=== PATIENT | male | born 1955 | race Caucasian/White ===

== ENCOUNTER → 2017-07-18 08:18 | Outpatient (CLI) | payer OTHER, SELFPAY ==
[2017-07-18 11:04] LABS: AST(SGOT) 27 U/L (15-37); Alanine Aminotransfer ALT/SGPT 32 U/L (16-61); Albumin, Serum 3.4 g/dL (3.2-5.0); Alkaline Phosphatase 59 U/L (45-117); Bilirubin, Direct 0.16 mg/dL (0.00-0.30); Cholesterol 88 mg/dL (200); Globulin 3.3 g/dL (2.2-4.2); High Density Lipoprotein 30 mg/dL; Protein, Total 6.7 g/dL (6.4-8.2); Triglycerides 138 mg/dL; Very Low Density Lipoprotein 28 mg/dL (5-40)
== END ==
PROVIDERS: Internal Medicine Cardiovascular Disease; Family Provider Family Medicine; PCP Family Medicine; Visit Provider Physician Assistant Medical
DX: E78.5 Hyperlipidemia, unspecified (principal)
CPT/HCPCS: 36415; 80061; 80076

== ENCOUNTER 2017-10-30 13:41 | Inpatient (IN) | payer OTHER, SELFPAY ==
[2017-10-30] VITALS (9 sets, daily range): BP systolic 140–165; BP diastolic 62–75; PULSE 61–78; RESP 16–18; TEMP 36.7–37.2; O2SAT 96–98; BMI 37.4
--- NOTE | 2017-10-30 14:45 | PCM.HP.STD ---
Problem List (1) Unstable angina Status: Acute (2) HTN (hypertension) Status: Chronic (3) HLD (hyperlipidemia) Status: Chronic (4) DEENA (obstructive sleep apnea) Status: Chronic (5) CAD (coronary atherosclerotic disease) Status: Chronic Comment: lad stent pia 08/29 (6) Testosterone deficiency Status: Chronic (7) Pulmonary embolism Status: Chronic History of Present Illness Date of Admission: 10/30/17 Chief Complaint: chest pain. The patient is a 62 year old M is with chest pain today. Patient was driving his car had chest pain and then started feeling diaphoretic. Patient was just very fatigued and called his and came to an outside hospital. At the hospital, the patient was started on a heparin drip and received saline. Patient's chest pain is resolved at this time. This weekend, patient was going on usually walk with his and had similar symptoms but he was also he was just very wiped out and was having some garbled speech. Patient when he had a heart attack in 2006 just felt very sick and tired for a week and was subsequently found to have had a heart attack during that time and did receive a stent. The symptoms that he had today are similar to then. [] Past Medical History Past Medical History (Chronic Problems): Chronic Problems (Last Updated 10/30/17 @ 14:14 by Ai Garcia MD) HTN (hypertension) (Chronic) Abnormal myocardial perfusion study (Chronic) H/O percutaneous transluminal coronary angioplasty (Chronic) HLD (hyperlipidemia) (Chronic) Abnormal stress test (Chronic) DEENA (obstructive sleep apnea) (Chronic) CAD (coronary atherosclerotic disease) (Chronic) lad stent pia 08/29 Testosterone deficiency (Chronic) Obesity (Chronic) Pulmonary embolism (Chronic) Allergies Sulfa (Sulfonamide Antibiotics) Allergy (Verified 06/09/17 19:41) Unknown ibuprofen [From Motrin] Adverse Reaction (Verified 06/09/17 19:41) Itching Home Medications: Ambulatory Orders Medication Instructions Recorded Esomeprazole Mag Trihydrate 40 mg PO DAILY 10/03/13 [Nexium] Potassium Chloride [Klor-Con 10] 40 meq PO DAILY 10/03/13 Multivitamins,Ther W-Minerals 1 tab PO DAILY 12/10/13 [Multivitamin With Minerals] Nitroglycerin [Nitrostat] 0.4 mg SUBLINGUAL Q5M PRN 12/10/13 Testosterone Cypionate 100 mg IM Q7D 12/10/13 [Depo-Testosterone] Aspirin E.C. [Ecotrin] 81 mg PO DAILY@0800 08/17/16 Meloxicam [Mobic] 7.5 mg PO DAILY 08/17/16 amlodipine 10 mg tablet 10 mg PO QDAY 06/09/17 Duloxetine Hcl [Cymbalta] 30 mg PO DAILY 10/30/17 Surgical History: angioplasty Psychiatric History: No pertinent psych hx Lives: Spouse/ Significant Other Smoking Status: Former smoker Tobacco Use: Chew Alcohol: Occasional Drugs: None - *Family History Maternal History Items: Heart Disease Paternal History Items: Heart Disease Review of Systems Constitutional: Denies: Chills, Fever, Weight Change Eyes: Denies: Blurred vision, Double vision HEENT: Denies: Head Aches, Sinus Congestion, Sinus Drainage Cardiovascular: Reports: Chest Pain, Edema - Since a recent trip down to [place].. Denies: Chest Tightness, Palpitations, Syncope Respiratory: Reports: Shortness of breath at rest. Denies: Cough, Sputum production Gastrointestinal: Denies: Abdominal Pain, Nausea, Vomiting Genitourinary: Denies: Dysuria Musculoskeletal: Reports: Shoulder Pain - Left, -. Denies: Arm Pain Skin: Denies: Rash, Wounds Neurological: Denies: Numbness, Tingling, Focal weakness Psychiatric: Reports: Anxiety, Depression - Had been on Cymbalta in the past but is no longer on it. Hematologic/ Lymphatic: Reports: Hx of blood clot. Denies: Easy Bruising, Easy Bleeding VTE Information - Inpt Only VTE Present on Admission: No VTE Mechan Device Prophylaxis: None VTE Pharm Prophylaxis ordered?: Yes Patient Problems: Active and Suspected Problems (Last Updated 10/30/17 @ 14:14 by Ai Garcia MD) Unstable angina (Acute) - Physical Exam General: Alert, Cooperative, No apparent distress HEENT: Atraumatic, Normocephalic, - - No scleral icterus Oral: Moist Mucosa, No Gingival or Mucosal Lesions/ Ulcerations Neck: No Nodes, Thyroid Normal Size and Texture Lungs: Clear to auscultation, Normal air movement Cardiovascular: Regular rate, Regular Rhythm, Normal S1, Normal S2, No murmurs Abdomen: Bowel Sounds Present, Soft, Non Tender, Non-Distended, No Hepato-splenomegaly Extremities: No edema, No Calf Tenderness Skin: No rashes, No breakdown Musculoskeletal: No Tenderness to Palpation of Joints or Extremities, No Muscle Wasting Neurological: Neuro grossly intact, Motor Exam 5/5 strength throughout, Sensory exam intact to light touch and pain Psych/Mental Status: Normal Affect, Appropriate Vital Signs Temp Pulse Resp BP Pulse Ox 36.8 C 70 16 140/75 H 97 10/30/17 13:49 10/30/17 14:25 10/30/17 13:49 10/30/17 13:49 10/30/17 13:49 Oxygen Delivery Method Room Air Weight: 143.2 kg Body Mass Index (BMI) 37.4 Labs at outside hospital: PTT 29.2, INR 1.1, sodium 138, potassium 3.5, creatinine 1.1, magnesium 2, troponin 0 0.01, white blood cell 6.2, hemoglobin 7.7, platelets 137. EKG showed normal sinus rhythm with first-degree AV block but no acute changes noted. Assessment/Plan Active and Suspected Problems (Last Updated 10/30/17 @ 14:14 by Ai Garcia MD) Unstable angina (Acute) 1. Unstable angina Currently symptom-free the patient is complaining some left shoulder pain. We will continue with anticoagulation but will transition the patient over to Lovenox from heparin. Patient is on aspirin at home but will start patient on metoprolol and lisinopril. Dr. Alfred has been notified by the outside ER. He will be on consultation. Tentative plan is for left heart catheterization on the . 2. Obstructive sleep apnea Continue with CPAP at night. Patient has brought his machine in and he can use that. 3. Coronary artery disease Patient has a stent from 2006 Symptoms today are similar to events that occurred then Continue with aspirin 4. Hypertension Continue with amlodipine. Patient does endorse that he has some swelling. Patient may wish to follow-up with his primary care physician to see if this could be related with the calcium channel jacob or not. 5. History of venous thromboembolic disease Vision is on testosterone. Patient should follow-up with his primary care physician to see if the testosterone should be discontinued. It will be held while he is here though. 6. DVT prophylaxis: Moderate risk. Patient is already anticoagulated. Code Visit Inpatient E&M: 29400 Init Hosp L3
--- NOTE | 2017-10-30 14:57 | HP.PCM_ITS ---
Problem List (1) Unstable angina Status: Acute (2) HTN (hypertension) Status: Chronic (3) HLD (hyperlipidemia) Status: Chronic (4) DEENA (obstructive sleep apnea) Status: Chronic (5) CAD (coronary atherosclerotic disease) Status: Chronic Comment: lad stent ipa 08/29 (6) Testosterone deficiency Status: Chronic (7) Pulmonary embolism Status: Chronic History of Present Illness Date of Admission: 10/30/17 Chief Complaint: chest pain. The patient is a 62 year old M is with chest pain today. Patient was driving his car had chest pain and then started feeling diaphoretic. Patient was just very fatigued and called his and came to an outside hospital. At the hospital, the patient was started on a heparin drip and received saline. Patient's chest pain is resolved at this time. This weekend, patient was going on usually walk with his and had similar symptoms but he was also he was just very wiped out and was having some garbled speech. Patient when he had a heart attack in 2006 just felt very sick and tired for a week and was subsequently found to have had a heart attack during that time and did receive a stent. The symptoms that he had today are similar to then. [] Past Medical History Past Medical History (Chronic Problems): Chronic Problems (Last Updated 10/30/17 @ 14:14 by Ai Garcia MD) HTN (hypertension) (Chronic) Abnormal myocardial perfusion study (Chronic) H/O percutaneous transluminal coronary angioplasty (Chronic) HLD (hyperlipidemia) (Chronic) Abnormal stress test (Chronic) DEENA (obstructive sleep apnea) (Chronic) CAD (coronary atherosclerotic disease) (Chronic) lad stent pia 08/29 Testosterone deficiency (Chronic) Obesity (Chronic) Pulmonary embolism (Chronic) Allergies Sulfa (Sulfonamide Antibiotics) Allergy (Verified 06/09/17 19:41) Unknown ibuprofen [From Motrin] Adverse Reaction (Verified 06/09/17 19:41) Itching Home Medications: Ambulatory Orders Medication Instructions Recorded Esomeprazole Mag Trihydrate 40 mg PO DAILY 10/03/13 [Nexium] Potassium Chloride [Klor-Con 10] 40 meq PO DAILY 10/03/13 Multivitamins,Ther W-Minerals 1 tab PO DAILY 12/10/13 [Multivitamin With Minerals] Nitroglycerin [Nitrostat] 0.4 mg SUBLINGUAL Q5M PRN 12/10/13 Testosterone Cypionate 100 mg IM Q7D 12/10/13 [Depo-Testosterone] Aspirin E.C. [Ecotrin] 81 mg PO DAILY@0800 08/17/16 Meloxicam [Mobic] 7.5 mg PO DAILY 08/17/16 amlodipine 10 mg tablet 10 mg PO QDAY 06/09/17 Duloxetine Hcl [Cymbalta] 30 mg PO DAILY 10/30/17 Surgical History: angioplasty Psychiatric History: No pertinent psych hx Lives: Spouse/ Significant Other Smoking Status: Former smoker Tobacco Use: Chew Alcohol: Occasional Drugs: None - *Family History Maternal History Items: Heart Disease Paternal History Items: Heart Disease Review of Systems Constitutional: Denies: Chills, Fever, Weight Change Eyes: Denies: Blurred vision, Double vision HEENT: Denies: Head Aches, Sinus Congestion, Sinus Drainage Cardiovascular: Reports: Chest Pain, Edema - Since a recent trip down to [place].. Denies: Chest Tightness, Palpitations, Syncope Respiratory: Reports: Shortness of breath at rest. Denies: Cough, Sputum production Gastrointestinal: Denies: Abdominal Pain, Nausea, Vomiting Genitourinary: Denies: Dysuria Musculoskeletal: Reports: Shoulder Pain - Left, -. Denies: Arm Pain Skin: Denies: Rash, Wounds Neurological: Denies: Numbness, Tingling, Focal weakness Psychiatric: Reports: Anxiety, Depression - Had been on Cymbalta in the past but is no longer on it. Hematologic/ Lymphatic: Reports: Hx of blood clot. Denies: Easy Bruising, Easy Bleeding VTE Information - Inpt Only VTE Present on Admission: No VTE Mechan Device Prophylaxis: None VTE Pharm Prophylaxis ordered?: Yes Patient Problems: Active and Suspected Problems (Last Updated 10/30/17 @ 14:14 by Ai Garcia MD) Unstable angina (Acute) - Physical Exam General: Alert, Cooperative, No apparent distress HEENT: Atraumatic, Normocephalic, - - No scleral icterus Oral: Moist Mucosa, No Gingival or Mucosal Lesions/ Ulcerations Neck: No Nodes, Thyroid Normal Size and Texture Lungs: Clear to auscultation, Normal air movement Cardiovascular: Regular rate, Regular Rhythm, Normal S1, Normal S2, No murmurs Abdomen: Bowel Sounds Present, Soft, Non Tender, Non-Distended, No Hepato- splenomegaly Extremities: No edema, No Calf Tenderness Skin: No rashes, No breakdown Musculoskeletal: No Tenderness to Palpation of Joints or Extremities, No Muscle Wasting Neurological: Neuro grossly intact, Motor Exam 5/5 strength throughout, Sensory exam intact to light touch and pain Psych/Mental Status: Normal Affect, Appropriate Vital Signs Temp Pulse Resp BP Pulse Ox 36.8 C 70 16 140/75 H 97 10/30/17 13:49 10/30/17 14:25 10/30/17 13:49 10/30/17 13:49 10/30/17 13:49 Oxygen Delivery Method Room Air Weight: 143.2 kg Body Mass Index (BMI) 37.4 Labs at outside hospital: PTT 29.2, INR 1.1, sodium 138, potassium 3.5, creatinine 1.1, magnesium 2, troponin 0 0.01, white blood cell 6.2, hemoglobin 7.7, platelets 137. EKG showed normal sinus rhythm with first-degree AV block but no acute changes noted. Assessment/Plan Active and Suspected Problems (Last Updated 10/30/17 @ 14:14 by Ai Garcia MD) Unstable angina (Acute) 1. Unstable angina * Currently symptom-free the patient is complaining some left shoulder pain. We will continue with anticoagulation but will transition the patient over to Lovenox from heparin. * Patient is on aspirin at home but will start patient on metoprolol and lisinopril. * Dr. Alfred has been notified by the outside ER. He will be on consultation. Tentative plan is for left heart catheterization on the . 2. Obstructive sleep apnea * Continue with CPAP at night. Patient has brought his machine in and he can use that. 3. Coronary artery disease * Patient has a stent from 2006 * Symptoms today are similar to events that occurred then * Continue with aspirin 4. Hypertension * Continue with amlodipine. * Patient does endorse that he has some swelling. Patient may wish to follow- up with his primary care physician to see if this could be related with the calcium channel jacob or not. 5. History of venous thromboembolic disease * Vision is on testosterone. Patient should follow-up with his primary care physician to see if the testosterone should be discontinued. It will be held while he is here though. 6. DVT prophylaxis: Moderate risk. Patient is already anticoagulated. Code Visit Inpatient E&M: 62972 Init Hosp L3
--- NOTE | 2017-10-30 15:13 | CASEMGMT ---
According to the [employer] website, the following are in-network tertiary facilities: [facility], [place], [facility], [facility], [facility], and . Sixto ZIMMERMAN CM
[2017-10-30 15:55] LABS: Partial Thromboplast Time 118.3 Seconds (24.1-36.2)
--- NOTE | 2017-10-30 16:14 | EKG12_ITS ---
Test Reason : ADMISSION Blood Pressure : / mmHG Vent. Rate : 057 BPM Atrial Rate : 057 BPM P-R Int : 278 ms QRS Dur : 088 ms QT Int : 392 ms P-R-T Axes : 051 -38 024 degrees QTc Int : 381 ms Sinus bradycardia with 1st degree A-V block Left axis deviation Abnormal ECG Confirmed by GABRIELA CONTI, KIRAN ([id number]), food editor ORLANDO MARKS ([id number] on 11/02/2017 1:13:17 PM Referred By: Nahum Blake Confirmed By:KIRAN OCHOA MD
--- NOTE | 2017-10-30 17:47 | PCM.CONS.C ---
Problem List (1) Unstable angina Status: Acute (2) CAD (coronary atherosclerotic disease) Status: Chronic Qualifiers: Coronary Disease-Associated Artery/Lesion type: [place] artery [place] vs. transplanted heart: [place] heart Associated angina: with unstable angina Qualified Code(s): I25.110 - Atherosclerotic heart disease of [place] coronary artery with unstable angina pectoris Comment: lad stent pia 08/29 (3) H/O percutaneous transluminal coronary angioplasty Status: Chronic (4) HLD (hyperlipidemia) Status: Chronic (5) HTN (hypertension) Status: Chronic (6) Confusion Status: Acute Reason for Consult Date of Consultation: 10/30/17 History of Present Illness: The patient is a 62 year old white male with a past medical history of underlying CAD, LAD PCI, hyperlipidemia, hypertension who presents for concerns of unstable angina pectoris. He states that he has been having episodes on and off recently where he feels a chest discomfort and a smothering sensation across his chest. He has not necessarily had associated nausea, emesis, near syncope or syncope. He states he has also been getting discomfort in his left scapular area. He notes that with these episodes and sometimes separate from these episodes he can become somewhat diaphoretic. He has also had episodes where he feels somewhat dizzy or lightheaded and confused. He notes that there have been times where he cannot remember things with respect to what he is supposed to be doing. He is concerned as there is a family history of Alzheimer's dementia. He notes today he had an episode of his chest discomfort and smothering sensation. He felt he was having an IN. He went home and requested his summoned the EMS and have him taken to the local emergency department. He was evaluated at his local emergency department. His troponin I level was negative. His ECG demonstrated sinus rhythm with a first-degree AV block with left axis deviation and a possible left anterior fascicular block. He was treated medically including IV heparin. A request was made for the patient to be transferred to [facility] for further evaluation and care. He states overall he does feel better. He still feels intermittently warm. He has been somewhat anxious about his symptoms and his events. His is with him at this time. She states she notices symptoms similar to what he had prior to his previous PCI. This includes his chest discomfort and smothering sensation as well as her being more tired and fatigued than usual. He has had no episodes of orthopnea or PND. He states he recently traveled to and from [place] on work related activities. He noted while in [place] he had ankle and pedal edema. He notes that has all but resolved since returning to [place]. Since being transferred to [facility] he has had a repeat troponin I level which is negative. He had a repeat ECG which demonstrated no other acute findings. [] Past Medical History Allergies/Adverse Reactions: Allergies Sulfa (Sulfonamide Antibiotics) Allergy (Verified 06/09/17 19:41) Unknown ibuprofen [From Motrin] Adverse Reaction (Verified 06/09/17 19:41) Itching Home Medications: Ambulatory Orders Medication Instructions Recorded Esomeprazole Mag Trihydrate 40 mg PO DAILY 10/03/13 [Nexium] Potassium Chloride [Klor-Con 10] 40 meq PO DAILY 10/03/13 Multivitamins,Ther W-Minerals 1 tab PO DAILY 12/10/13 [Multivitamin With Minerals] Nitroglycerin [Nitrostat] 0.4 mg SUBLINGUAL Q5M PRN 12/10/13 Testosterone Cypionate 100 mg IM Q7D 12/10/13 [Depo-Testosterone] Aspirin E.C. [Ecotrin] 81 mg PO DAILY@0800 08/17/16 Meloxicam [Mobic] 7.5 mg PO DAILY 08/17/16 amlodipine 10 mg tablet 10 mg PO QDAY 06/09/17 Duloxetine Hcl [Cymbalta] 30 mg PO DAILY 10/30/17 Past Medical History (Chronic Problems): Chronic Problems (Last Updated 10/30/17 @ 14:14 by Ai Garcia MD) HTN (hypertension) (Chronic) Abnormal myocardial perfusion study (Chronic) H/O percutaneous transluminal coronary angioplasty (Chronic) HLD (hyperlipidemia) (Chronic) Abnormal stress test (Chronic) DEENA (obstructive sleep apnea) (Chronic) CAD (coronary atherosclerotic disease) (Chronic) lad stent pia 08/29 Testosterone deficiency (Chronic) Obesity (Chronic) Pulmonary embolism (Chronic) Surgical History: angioplasty Psychiatric History: No pertinent psych hx - *Family History Maternal Family History: Family History (Last Updated 06/09/17 @ 19:48 by Dia Nicholson) Mother CAD (coronary artery disease) Hypertension Hx of CABG Father Hypertension Myocardial infarction Grandfather Myocardial infarction Grandmother Cancer Grandfather CAD (coronary artery disease) History Items: Heart Disease Paternal Family History: Family History (Last Updated 06/09/17 @ 19:48 by Dia Nicholson) Mother CAD (coronary artery disease) Hypertension Hx of CABG Father Hypertension Myocardial infarction Grandfather Myocardial infarction Grandmother Cancer Grandfather CAD (coronary artery disease) History Items: Heart Disease Lives: Spouse/ Significant Other Smoking Status: Former smoker Tobacco Use: Chew Alcohol: Occasional Drugs: None Review of Systems - Review of Systems General: Reports: Fatigue. Denies: Fever, Night Sweats Cardiovascular: Reports: Chest Discomfort, Chest Discomfort at Rest, Shortness of Breath, Shortness of Breath at Rest, Peripheral Edema, Lightheadedness. Denies: Orthopnea, PND, Palpitations, Dizziness, Near Syncope, Syncope Respiratory: Denies: Cough, Sputum Production, Hemoptysis Gastrointestinal: Denies: Hematemesis, Hematochezia, Melena Genitourinary: Denies: Dysuria, Hematuria Skin: Denies: Rash Subjectve: This is a 62-year-old white male who appears to be resting comfortably at the moment in no acute distress. Objective: Vital Signs Temp Pulse Resp BP Pulse Ox 98.3 F 77 16 140/75 H 97 10/30/17 13:49 10/30/17 16:06 10/30/17 13:49 10/30/17 13:49 10/30/17 15:00 Oxygen Delivery Method Room Air Weight: 315 lb 11.231 oz Body Mass Index (BMI) 37.4 General: Awake, Alert, Oriented x 3, Cooperative, No Acute Distress HEENT: Atraumatic, Normocephalic, PERRL, EOMI, Sclera Non Icteric Oral: Moist Mucosa Neck: Supple, Good ROM, No JVD Lungs: Clear to auscultation Cardiovascular: Regular Rhythm, Premature Ectopic Beats, Normal S1 Vascular: No Carotid Bruits Abdomen: Bowel Sounds Present, Soft, Non Tender Extremities: No Cyanosis, No Clubbing, No edema Neurological: No Focal Motor or Sensory Deficit Psych/Mental Status: Appropriate, Normal Affect 10/30/17 14:55: Troponin I < 0.015 10/30/17 15:28: APTT 118.3 H* Rhythm: Sinus rhythm EKG: As noted above ECHO: [facility] 2015: Left ventricle: Normal with an LVEF 65%; moderate concentric LVH; trivial MR; trivial TR; mild pulmonic valve insufficiency Stress Test: 07/16/2015: Xavier protocol: 8 minutes and 30 seconds achieving 87% predicted maximal heart rate with a peak blood pressure of 182/82 mmHg and a peak metabolic equivalent of 9 metabolic equivalents; peak exercise ECG with no obvious ECG changes; rare PVC during recovery; functional capacity good; no complaint of chest discomfort during exercise or recovery; examination discontinued secondary to dyspnea and leg discomfort; nuclear images compatible with soft tissue attenuation/artifact with no myocardial perfusion changes consider diagnostic for stress-induced myocardial ischemia or previous myocardial injury/infarction; gated LVEF of 62% Cardiac Cath: 12/11/2013: Left ventricle normal with an LVEF of 65%; left main coronary artery normal; LAD stent patent with minimal luminal irregularities; LCx normal; RCA being large and dominant with mid 25% stenosis PCI: 09/12/2012: [place], [place]: PTCA/drug-eluting stent to the proximal LAD Assessment/Plan 1. Unstable angina pectoris The patient presents with symptoms of relatively nonexertional and increasing in frequency chest discomfort, dyspnea, diaphoresis, and progressive fatigue. According to the patient's history this appears similar to the patient's presentation prior to a previous diagnosis of CAD and PCI. The patient has undergone noncardiac evaluation with cardiac enzymes and ECGs. They have been unremarkable for any acute changes at this time. The patient will continue to be monitored. He will continue medical management as deemed appropriate. Based upon the patient's history it was felt reasonable that patient be considered for repeat definitive evaluation at this time with diagnostic cardiac catheterization. The procedure and risks were discussed with the patient and he was agreeable to this. 2. CAD status post LAD PCI Patient does have a previous diagnosis of CAD as noted above. He has continued medical management as best as tolerated. His medications will be adjusted as needed. 3. Hyperlipidemia The patient does have a history of hyperlipidemia. He has been on lipid-lowering therapy in the past. He has had concerns of associated symptoms. His lipids will be reassessed. He may need to reattempt lipid-lowering therapy, etc., to minimize his cardiovascular risks. 4. Hypertension The patient will continue medical management with adjustment as deemed appropriate. 5. Confusion The patient has had episodes of confusion. It is unclear as to the etiology. This may be totally separate from his cardiovascular disease process, etc. He may need further noncardiac/neurology evaluation of his episodes of confusion. Comment: The above was discussed with the patient with his spouse present. This note was generated with [employer] dictation software. It may contain incorrect words, spelling, and punctuation that were not noted in checking the note before signing.
--- NOTE | 2017-10-30 18:00 | CON.PCM_ITS ---
Problem List (1) Unstable angina Status: Acute (2) CAD (coronary atherosclerotic disease) Status: Chronic Qualifiers: Coronary Disease-Associated Artery/Lesion type: [place] artery [place] vs. transplanted heart: [place] heart Associated angina: with unstable angina Qualified Code(s): I25.110 - Atherosclerotic heart disease of [place] coronary artery with unstable angina pectoris Comment: lad stent pia 08/29 (3) H/O percutaneous transluminal coronary angioplasty Status: Chronic (4) HLD (hyperlipidemia) Status: Chronic (5) HTN (hypertension) Status: Chronic (6) Confusion Status: Acute Reason for Consult Date of Consultation: 10/30/17 History of Present Illness: The patient is a 62 year old white male with a past medical history of underlying CAD, LAD PCI, hyperlipidemia, hypertension who presents for concerns of unstable angina pectoris. He states that he has been having episodes on and off recently where he feels a chest discomfort and a smothering sensation across his chest. He has not necessarily had associated nausea, emesis, near syncope or syncope. He states he has also been getting discomfort in his left scapular area. He notes that with these episodes and sometimes separate from these episodes he can become somewhat diaphoretic. He has also had episodes where he feels somewhat dizzy or lightheaded and confused. He notes that there have been times where he cannot remember things with respect to what he is supposed to be doing. He is concerned as there is a family history of Alzheimer's dementia. He notes today he had an episode of his chest discomfort and smothering sensation. He felt he was having an PR. He went home and requested his summoned the EMS and have him taken to the local emergency department. He was evaluated at his local emergency department. His troponin I level was negative. His ECG demonstrated sinus rhythm with a first-degree AV block with left axis deviation and a possible left anterior fascicular block. He was treated medically including IV heparin. A request was made for the patient to be transferred to [facility] for further evaluation and care. He states overall he does feel better. He still feels intermittently warm. He has been somewhat anxious about his symptoms and his events. His is with him at this time. She states she notices symptoms similar to what he had prior to his previous PCI. This includes his chest discomfort and smothering sensation as well as her being more tired and fatigued than usual. He has had no episodes of orthopnea or PND. He states he recently traveled to and from [place] on work related activities. He noted while in [place] he had ankle and pedal edema. He notes that has all but resolved since returning to [place]. Since being transferred to [facility] he has had a repeat troponin I level which is negative. He had a repeat ECG which demonstrated no other acute findings. [] Past Medical History Allergies/Adverse Reactions: Allergies Sulfa (Sulfonamide Antibiotics) Allergy (Verified 06/09/17 19:41) Unknown ibuprofen [From Motrin] Adverse Reaction (Verified 06/09/17 19:41) Itching Home Medications: Ambulatory Orders Medication Instructions Recorded Esomeprazole Mag Trihydrate 40 mg PO DAILY 10/03/13 [Nexium] Potassium Chloride [Klor-Con 10] 40 meq PO DAILY 10/03/13 Multivitamins,Ther W-Minerals 1 tab PO DAILY 12/10/13 [Multivitamin With Minerals] Nitroglycerin [Nitrostat] 0.4 mg SUBLINGUAL Q5M PRN 12/10/13 Testosterone Cypionate 100 mg IM Q7D 12/10/13 [Depo-Testosterone] Aspirin E.C. [Ecotrin] 81 mg PO DAILY@0800 08/17/16 Meloxicam [Mobic] 7.5 mg PO DAILY 08/17/16 amlodipine 10 mg tablet 10 mg PO QDAY 06/09/17 Duloxetine Hcl [Cymbalta] 30 mg PO DAILY 10/30/17 Past Medical History (Chronic Problems): Chronic Problems (Last Updated 10/30/17 @ 14:14 by Ai Garcia MD) HTN (hypertension) (Chronic) Abnormal myocardial perfusion study (Chronic) H/O percutaneous transluminal coronary angioplasty (Chronic) HLD (hyperlipidemia) (Chronic) Abnormal stress test (Chronic) DEENA (obstructive sleep apnea) (Chronic) CAD (coronary atherosclerotic disease) (Chronic) lad stent pia 08/29 Testosterone deficiency (Chronic) Obesity (Chronic) Pulmonary embolism (Chronic) Surgical History: angioplasty Psychiatric History: No pertinent psych hx - *Family History Maternal Family History: Family History (Last Updated 06/09/17 @ 19:48 by Dia Nicholson) Mother CAD (coronary artery disease) Hypertension Hx of CABG Father Hypertension Myocardial infarction Grandfather Myocardial infarction Grandmother Cancer Grandfather CAD (coronary artery disease) History Items: Heart Disease Paternal Family History: Family History (Last Updated 06/09/17 @ 19:48 by Dia Nicholson) Mother CAD (coronary artery disease) Hypertension Hx of CABG Father Hypertension Myocardial infarction Grandfather Myocardial infarction Grandmother Cancer Grandfather CAD (coronary artery disease) History Items: Heart Disease Lives: Spouse/ Significant Other Smoking Status: Former smoker Tobacco Use: Chew Alcohol: Occasional Drugs: None Review of Systems - Review of Systems General: Reports: Fatigue. Denies: Fever, Night Sweats Cardiovascular: Reports: Chest Discomfort, Chest Discomfort at Rest, Shortness of Breath, Shortness of Breath at Rest, Peripheral Edema, Lightheadedness. Denies: Orthopnea, PND, Palpitations, Dizziness, Near Syncope, Syncope Respiratory: Denies: Cough, Sputum Production, Hemoptysis Gastrointestinal: Denies: Hematemesis, Hematochezia, Melena Genitourinary: Denies: Dysuria, Hematuria Skin: Denies: Rash Subjectve: This is a 62-year-old white male who appears to be resting comfortably at the moment in no acute distress. Objective: Vital Signs Temp Pulse Resp BP Pulse Ox 98.3 F 77 16 140/75 H 97 10/30/17 13:49 10/30/17 16:06 10/30/17 13:49 10/30/17 13:49 10/30/17 15:00 Oxygen Delivery Method Room Air Weight: 315 lb 11.231 oz Body Mass Index (BMI) 37.4 General: Awake, Alert, Oriented x 3, Cooperative, No Acute Distress HEENT: Atraumatic, Normocephalic, PERRL, EOMI, Sclera Non Icteric Oral: Moist Mucosa Neck: Supple, Good ROM, No JVD Lungs: Clear to auscultation Cardiovascular: Regular Rhythm, Premature Ectopic Beats, Normal S1 Vascular: No Carotid Bruits Abdomen: Bowel Sounds Present, Soft, Non Tender Extremities: No Cyanosis, No Clubbing, No edema Neurological: No Focal Motor or Sensory Deficit Psych/Mental Status: Appropriate, Normal Affect 10/30/17 14:55: Troponin I < 0.015 10/30/17 15:28: APTT 118.3 H* Rhythm: Sinus rhythm EKG: As noted above ECHO: [facility] 2015: Left ventricle: Normal with an LVEF 65%; moderate concentric LVH; trivial MR; trivial TR; mild pulmonic valve insufficiency Stress Test: 07/16/2015: Xavier protocol: 8 minutes and 30 seconds achieving 87% predicted maximal heart rate with a peak blood pressure of 182/82 mmHg and a peak metabolic equivalent of 9 metabolic equivalents; peak exercise ECG with no obvious ECG changes; rare PVC during recovery; functional capacity good; no complaint of chest discomfort during exercise or recovery; examination discontinued secondary to dyspnea and leg discomfort; nuclear images compatible with soft tissue attenuation/artifact with no myocardial perfusion changes consider diagnostic for stress-induced myocardial ischemia or previous myocardial injury/infarction; gated LVEF of 62% Cardiac Cath: 12/11/2013: Left ventricle normal with an LVEF of 65%; left main coronary artery normal; LAD stent patent with minimal luminal irregularities; LCx normal; RCA being large and dominant with mid 25% stenosis PCI: 09/12/2012: [place], [place]: PTCA/drug-eluting stent to the proximal LAD Assessment/Plan 1. Unstable angina pectoris The patient presents with symptoms of relatively nonexertional and increasing in frequency chest discomfort, dyspnea, diaphoresis, and progressive fatigue. According to the patient's history this appears similar to the patient's presentation prior to a previous diagnosis of CAD and PCI. The patient has undergone noncardiac evaluation with cardiac enzymes and ECGs. They have been unremarkable for any acute changes at this time. The patient will continue to be monitored. He will continue medical management as deemed appropriate. Based upon the patient's history it was felt reasonable that patient be considered for repeat definitive evaluation at this time with diagnostic cardiac catheterization. The procedure and risks were discussed with the patient and he was agreeable to this. 2. CAD status post LAD PCI Patient does have a previous diagnosis of CAD as noted above. He has continued medical management as best as tolerated. His medications will be adjusted as needed. 3. Hyperlipidemia The patient does have a history of hyperlipidemia. He has been on lipid- lowering therapy in the past. He has had concerns of associated symptoms. His lipids will be reassessed. He may need to reattempt lipid-lowering therapy, etc., to minimize his cardiovascular risks. 4. Hypertension The patient will continue medical management with adjustment as deemed appropriate. 5. Confusion The patient has had episodes of confusion. It is unclear as to the etiology. This may be totally separate from his cardiovascular disease process, etc. He may need further noncardiac/neurology evaluation of his episodes of confusion. Comment: The above was discussed with the patient with his spouse present. This note was generated with [employer] dictation software. It may contain incorrect words, spelling, and punctuation that were not noted in checking the note before signing.
[2017-10-30] MEDS: Enoxaparin 150 MG/ML Syringe 140 MG SC (21:41)
[2017-10-30] MEDS: Metoprolol Tartrate 25 MG Tablet PO (21:41)
[2017-10-30] MEDS: TICAGRELOR 90 MG TABLET PO (21:41)
[2017-10-31] VITALS (16 sets, daily range): BP systolic 123–159; BP diastolic 61–81; PULSE 60–77; RESP 16–20; TEMP 36.7–37.1; O2SAT 94–97
[2017-10-31 03:55] LABS: Bacteria 0 SEEN /hpf (None Seen); Mucous, Urine 0 SEEN /hpf (<or=2+); Red Blood Cells-Urine 0 SEEN /hpf (0-5); White Blood Cells 0 SEEN /hpf (0-5)
[2017-10-31 04:00] LABS: Color, Urine Yellow (Yellow); Glucose, Dipstick Normal (Normal); Ketone-Dipstick Negative (Negative); Leukocyte Esterase-Dipstick Negative /ul (Negative); Nitrite-Dipstick Negative (Negative); Occult Blood-Urine Negative /ul (Negative); Protein-Dipstick Negative (Negative); Urine Bilirubin Dipstick Negative (Negative); Urine Clarity Clear (Clear); Urine Urobilinogen Normal (Normal)
[2017-10-31 04:07] LABS: Squamous Epithelial Cells - UA 0-5 SEEN /hpf (0-5)
[2017-10-31 05:55] LABS: International Normalized Ratio 1.1
--- NOTE | 2017-10-31 05:55 | EKG12_ITS ---
Test Reason : AM EKG Blood Pressure : / mmHG Vent. Rate : 061 BPM Atrial Rate : 061 BPM P-R Int : 264 ms QRS Dur : 090 ms QT Int : 398 ms P-R-T Axes : 070 -39 015 degrees QTc Int : 400 ms Sinus rhythm with 1st degree A-V block Left axis deviation Abnormal ECG Confirmed by GABRIELA CONTI, KIRAN ([id number]), graphics editor ORLANDO MARKS ([id number] on 11/02/2017 1:12:47 PM Referred By: Nahum Blake Confirmed By:KIRAN OCHOA MD
[2017-10-31 05:56] LABS: Partial Thromboplast Time 38.7 Seconds (24.1-36.2)
[2017-10-31 06:03] LABS: Hematocrit 47.2 % (40-54); Hemoglobin 16.4 g/dl (13.0-16.5); Mean Corp Hgb Conc 34.7 g/gl (32-36); Mean Corpuscular Hgb 28.3 pg (27.0-32.0); Mean Corpuscular Volume 81.5 fL (80-94); Mean Platelet Vol. 11.6 fl (6.2-12.0); Platelet Count 148 K/mm3 (150-450); RBC Distribution Width CV 13.6 % (11.6-14.6); RBC Distribution Width SD 40.3 fl (35.1-43.9); Red Blood Count 5.79 M/mm3 (4.6-6.2); White Blood Count 5.6 K/mm3 (4.4-11.0)
[2017-10-31 06:04] LABS: Scan Indicated on CBC? Y/N NO
[2017-10-31] MEDS: TICAGRELOR 90 MG TABLET PO (06:21)
[2017-10-31] MEDS: Aspirin E.C. 81 MG Tablet PO (06:21)
[2017-10-31] MEDS: Lisinopril 5 MG Tablet PO (06:22)
[2017-10-31] MEDS: amLODIPine 10 MG Tablet PO (06:22)
[2017-10-31] MEDS: Metoprolol Tartrate 25 MG Tablet PO (06:22)
[2017-10-31 06:27] LABS: Anion Gap 8 (5-15); BUN 16 mg/dL (7-18); BUN/Creat Ratio 13.7 RATIO (10-20); Calcium,Total 8.2 mg/dL (8.5-10.1); Chloride 107 mmol/L (98-107); Cholesterol 116 mg/dL (200); Creatinine, Serum 1.17 mg/dL (0.70-1.30); EST Glomerular Filtration Rate 68 mL/min (>60); Est Glom Filt Rate - Afr Amer 82 mL/min (>60); Estimated Creatinine Clearance 84.62 ml/min; Glucose 94 mg/dL (74-106); High Density Lipoprotein 25 mg/dL; Potassium 3.6 mmol/L (3.5-5.1); Sodium Level 141 mmol/L (136-145); Thyroid Stim Hormone (TSH) 2.89 uIU/mL (0.358-3.74); Triglycerides 185 mg/dL; Very Low Density Lipoprotein 37 mg/dL (5-40)
--- NOTE | 2017-10-31 07:58 | NURSING ---
Called report to Bo in laboratory coordinator at this time.
--- NOTE | 2017-10-31 09:27 | CL.D_ITS ---
Patient Name: JERO GARZON Study Date: 10/31/2017 Performing: Willis Alfred MD Ht: 77 inches 196 cm : 1955 Wt: 315.7 lbs 143 kg Age: 62 Gender: male BSA: 2.72 PROCEDURE(S) PERFORMED [id number]/COR/LV CLINICAL PROFILE AND INDICATIONS Indications: Stable Known CAD, Worsening Angina Heart Failure: None Stress/Imaging Stress/Image Study Performed: No Angina Classification Anginal Classification w/in 2 Weeks: CCS III CAD Presentations: Unstable angina. CONCLUSIONS Normal Left Ventricular End Diastolic Pressure Normal LV size, wall motion,and systolic function LVEF: by LV gram 60 % [place] Multivessel CAD (LAD: Proximal Stent: Patent) RECOMMENDATIONS Risk factor modification Medical therapy DESCRIPTION OF PROCEDURE The patient arrived to the procedure lab. The risks and benefits of the procedure as well as a full d escription of our services here and current unavailability of surgical backup were fully explained to the patient and/or their significant other prior to the catheterization. The Timeout was completed, verifying the correct patient and procedure. The patient's procedural site was prepped and draped in the usual fashion. Local anesthetic was given subcutaneously to right radial region with Lidocaine 2% . Using a modified Seldinger technique, arterial access was obtained via the right radial artery, a 6 Fr sheath was inserted. Right Coronary Artery selective angiography was then performed in multiple v iews using a 5 Fr. 4.0 [place] catheter. Left Coronary Artery selective angiography was performed in mu ltiple views using a 5 Fr. 4.0 [place] catheter. Left Ventriculography was performed in ACEVEDO projection using a 5 Fr. [place] catheter. LV to AO pullback pressures were then recorded.The arterial sheath wa s pulled and a TR Band was applied for hemostasis CORONARY ANGIOGRAPHY DOMINANCE: Right Dominant LEFT HEART ASSESSMENT Left Ventricular Ejection Fraction: by LV Gram 60 % Normal LV wall motion Normal Left Ventricular End Diastolic Pressure LVEDP: 9 mmHg LEFT MAIN: Angiographically normal LEFT ANTERIOR DECENDING ARTERY: PROX LAD: Previously placed stent is patent DIAGONAL 1: Ostial - 10-25 % Stenosis CIRCUMFLEX ARTERY: Angiographically normal RIGHT CORONARY ARTERY: Diffuse: Eccentric: 10-25% % Stenosis VALVE FINDINGS: Normal Aortic Valve function Normal Mitral Valve function AORTIC ROOT: Angiographically normal COMPLICATIONS No Complications PROCEDURE MEDICATIONS Fentanyl 50 mcg IV Versed 1 mg IV Fentanyl 50 mcg IV Versed 1 mg IV Oxygen: 2 L/min via nasal cannula SUMMARY OF HEMODYNAMIC DATA Time AIR REST ECG 08:13:08 AO 104/67 (84) SA 08:47:51 LV 109/-2, 6 09:09:31 LV 115/-1, 9 09:09:39 LV 115/0, 11 09:11:12 LVp 117/1, 12 09:11:17 AOp 113/65 (87) 09:11:22 Signed By Willis Alfred MD On 10/31/2017 09:26:37 Willis Alfred MD
[2017-10-31] MEDS: 0.9% Normal Saline 1,000 ML 75 ML IV (09:45)
[2017-10-31] MEDS: 0.9% Normal Saline 1,000 ML 15 ML IV (09:45)
[2017-10-31] MEDS: DULoxetine Hcl 30 MG Capsule PO (09:46)
[2017-10-31] MEDS: Multivitamins,Ther W-Minerals Tablet 1 TABLET PO (09:46)
[2017-10-31] MEDS: Pantoprazole Sodium 40 MG Tablet PO (09:46)
--- NOTE | 2017-10-31 11:29 | PCM.DC ---
- Discharge Diagnoses Current Active Problems: Current Active and Chronic Problems (Last Updated 10/30/17 @ 14:14 by Ai Garcia MD) Unstable angina (Acute) Confusion (Acute) You will use the following diet at home:: Cardiac Your food should be the consistency of: Regular Discharge Activity: Return to Normal Activity Weight Bearing Status: Weight bearing as tolerated Call your doctor if you observe: Fever of 101 or Higher, Shortness of breath, Dizziness, Fainting spells, Chest pain, Increased palpitations (irregular heartbeat), Uncontrolled pain Allergies/Adverse Reactions: Allergies Sulfa (Sulfonamide Antibiotics) Allergy (Verified 06/09/17 19:41) Unknown ibuprofen [From Motrin] Adverse Reaction (Verified 06/09/17 19:41) Itching Medications to take at Discharge Esomeprazole Mag Trihydrate [Nexium] 40 mg PO DAILY 10/03/13 Potassium Chloride [Klor-Con 10] 40 meq PO DAILY 10/03/13 Multivitamins,Ther W-Minerals [Multivitamin With Minerals] 1 tab PO DAILY 12/10/13 Nitroglycerin [Nitrostat] 0.4 mg SUBLINGUAL Q5M PRN 12/10/13 Testosterone Cypionate [Depo-Testosterone] 100 mg IM Q7D 12/10/13 Aspirin E.C. [Ecotrin] 81 mg PO DAILY@0800 08/17/16 Meloxicam [Mobic] 7.5 mg PO DAILY 08/17/16 amlodipine 10 mg tablet 10 mg PO QDAY 06/09/17 Duloxetine Hcl [Cymbalta] 30 mg PO DAILY 10/30/17 Gabapentin [Neurontin] 300 mg PO QHS 10/30/17 Lisinopril [Zestril] 5 mg PO DAILY #30 tab 10/31/17 Metoprolol Tartrate [Lopressor (beta jacob)] 25 mg PO BID #90 tab 10/31/17 The following prescriptions were given: Lisinopril [Zestril] 5 mg PO DAILY #30 tab Metoprolol Tartrate [Lopressor (beta jacob)] 25 mg PO BID #90 tab Primary Care Physician: Jagjit Myers MD [Primary Care Provider] - Please follow up with your Primary Care Physician in: 1 week.
--- NOTE | 2017-10-31 12:02 | CASEMGMT ---
Face to Face with patient for initial transition planning/care coordination assessment. ERASMO CAT introduced self and role at [facility], pt voices understanding and consents to assessment at this time. Pt is lying in bed in no distress at this time. Pt is A/O x4 at this time and answers all questions appropriately at this time. Care providers, pharmacy, and demographics verified. See attached link. Pt voices no further concerns/needs at this time. Advised pt to ask for CM if any further questions/concerns/needs arise, voices understanding. PLAN: Home [place] ERASMO CAT
--- NOTE | 2017-10-31 13:31 | PCM.DC.SUM ---
Discharge Date and Diagnosis - Problem List Patient Problems: Active and Suspected Problems (Last Updated 10/30/17 @ 14:14 by Ai Garcia MD) Unstable angina (Acute) Confusion (Acute) Date of Admission: 10/30/17 Date of Discharge: 10/31/17 - Primary Discharge Diagnosis Active and Suspected Problems (Last Updated 10/30/17 @ 14:14 by Ai Garcia MD) Unstable angina (Acute) - Secondary Discharge Diagnosis Chronic Problems (Last Updated 10/30/17 @ 14:14 by Ai Garcia MD) HTN (hypertension) (Chronic) Abnormal myocardial perfusion study (Chronic) H/O percutaneous transluminal coronary angioplasty (Chronic) HLD (hyperlipidemia) (Chronic) Abnormal stress test (Chronic) DEENA (obstructive sleep apnea) (Chronic) CAD (coronary atherosclerotic disease) (Chronic) lad stent pia 08/29 Testosterone deficiency (Chronic) Obesity (Chronic) Pulmonary embolism (Chronic) Hospital Course and Treatment Operations: None Procedures: Cardiac catheterization, EKG Summary of Care Provided: Patient seen and examined on the day of discharge and appeared to be stable to be discharged home. He has no more chest pain. His vital signs are stable. Today, he is alert and related ?3. - Physical Exam General: Alert, Oriented x3, Cooperative, No apparent distress. HEENT: Atraumatic, PERRLA, EOMI. Neck: Supple, No JVD, Negative Carotid Bruits, Trachea Midline, Thyroid Normal. Lungs: Clear to auscultation, Normal air movement, No rhonchi, No wheeze, No rales. Cardiovascular: Regular rate, Regular Rhythm, Normal S1, Normal S2, PMI Normal. Abdomen: Bowel Sounds Present, Soft, Non Tender, Non-Distended, No Hepato-splenomegaly. Extremities: No clubbing, No cyanosis, No edema Skin: No rashes, No breakdown Neurological: Neuro grossly intact Vital Signs are stable. Hospital course: This is a 8 years old male patient admitted directly from outside facility for unstable angina for evaluation. He has a history of CAD status post stents back in 2006. His EKG revealed no evidence of acute ischemic changes. His troponin was negative ?2. His routine blood work was unremarkable. His vital signs are stable. Cardiology consulted and he underwent cardiac catheterization that revealed normal LV size and function, ejection fraction 60%, patent LAD stent and without evidence of significant CAD that requires intervention and decision was made to continue medical treatment. Patient was started on lisinopril and metoprolol in addition to his previous medications including statins and aspirin. Patient reports that he had cough with lisinopril and this was switched to losartan. Acute coronary syndrome ruled out. Patient discharged home in a stable medical condition, started on metoprolol and losartan, continued on aspirin, recommended follow-up with PCP in 1 week and follow-up with cardiology according to Dr. Alfred. Discharge Activity: Return to Normal Activity Weight Bearing Status: Weight bearing as tolerated Call your doctor if you observe: Fever of 101 or Higher, Shortness of breath, Dizziness, Fainting spells, Chest pain, Increased palpitations (irregular heartbeat), Uncontrolled pain Home Medications: Medications to take at Discharge Esomeprazole Mag Trihydrate [Nexium] 40 mg PO DAILY 10/03/13 Potassium Chloride [Klor-Con 10] 40 meq PO DAILY 10/03/13 Multivitamins,Ther W-Minerals [Multivitamin With Minerals] 1 tab PO DAILY 12/10/13 Nitroglycerin [Nitrostat] 0.4 mg SUBLINGUAL Q5M PRN 12/10/13 Testosterone Cypionate [Depo-Testosterone] 100 mg IM Q7D 12/10/13 Aspirin E.C. [Ecotrin] 81 mg PO DAILY@0800 08/17/16 Meloxicam [Mobic] 7.5 mg PO DAILY 08/17/16 amlodipine 10 mg tablet 10 mg PO QDAY 06/09/17 Duloxetine Hcl [Cymbalta] 30 mg PO DAILY 10/30/17 Gabapentin [Neurontin] 300 mg PO QHS 10/30/17 Losartan Potassium [Cozaar] 25 mg PO DAILY #30 tab 10/31/17 Metoprolol Tartrate [Lopressor (beta jacob)] 25 mg PO BID #90 tab 10/31/17 Following Prescrptions Were Given to Patient: Losartan Potassium [Cozaar] 25 mg PO DAILY #30 tab Metoprolol Tartrate [Lopressor (beta jacob)] 25 mg PO BID #90 tab Primary Care Physician: Jagjit Myers MD [Primary Care Provider] - Please follow up with your Primary Care Physician in: 1 week. Disposition: Home Minutes spent on discharge:: 25 Patient Condition:: Stable Medical Necessity - Tobacco Use Smoking Status: Former smoker Tobacco Use: Chew Meaningful Use Info Meaningful Use Diagnoses (Choose all that apply): None applicable Code Visit Inpatient E&M: 85149 Disch Hosp
--- NOTE | 2017-10-31 13:38 | DS.PCM_ITS ---
Discharge Date and Diagnosis - Problem List Patient Problems: Active and Suspected Problems (Last Updated 10/30/17 @ 14:14 by Ai Garcia MD) Unstable angina (Acute) Confusion (Acute) Date of Admission: 10/30/17 Date of Discharge: 10/31/17 - Primary Discharge Diagnosis Active and Suspected Problems (Last Updated 10/30/17 @ 14:14 by Ai Garcia MD) Unstable angina (Acute) - Secondary Discharge Diagnosis Chronic Problems (Last Updated 10/30/17 @ 14:14 by Ai Garcia MD) HTN (hypertension) (Chronic) Abnormal myocardial perfusion study (Chronic) H/O percutaneous transluminal coronary angioplasty (Chronic) HLD (hyperlipidemia) (Chronic) Abnormal stress test (Chronic) DEENA (obstructive sleep apnea) (Chronic) CAD (coronary atherosclerotic disease) (Chronic) lad stent pia 08/29 Testosterone deficiency (Chronic) Obesity (Chronic) Pulmonary embolism (Chronic) Hospital Course and Treatment Operations: None Procedures: Cardiac catheterization, EKG Summary of Care Provided: Patient seen and examined on the day of discharge and appeared to be stable to be discharged home. He has no more chest pain. His vital signs are stable. Today, he is alert and related ?3. - Physical Exam General: Alert, Oriented x3, Cooperative, No apparent distress. HEENT: Atraumatic, PERRLA, EOMI. Neck: Supple, No JVD, Negative Carotid Bruits, Trachea Midline, Thyroid Normal. Lungs: Clear to auscultation, Normal air movement, No rhonchi, No wheeze, No rales. Cardiovascular: Regular rate, Regular Rhythm, Normal S1, Normal S2, PMI Normal. Abdomen: Bowel Sounds Present, Soft, Non Tender, Non-Distended, No Hepato- splenomegaly. Extremities: No clubbing, No cyanosis, No edema Skin: No rashes, No breakdown Neurological: Neuro grossly intact Vital Signs are stable. Hospital course: This is a 8 years old male patient admitted directly from outside facility for unstable angina for evaluation. He has a history of CAD status post stents back in 2006. His EKG revealed no evidence of acute ischemic changes. His troponin was negative ?2. His routine blood work was unremarkable. His vital signs are stable. Cardiology consulted and he underwent cardiac catheterization that revealed normal LV size and function, ejection fraction 60% , patent LAD stent and without evidence of significant CAD that requires intervention and decision was made to continue medical treatment. Patient was started on lisinopril and metoprolol in addition to his previous medications including statins and aspirin. Patient reports that he had cough with lisinopril and this was switched to losartan. Acute coronary syndrome ruled out. Patient discharged home in a stable medical condition, started on metoprolol and losartan, continued on aspirin, recommended follow-up with PCP in 1 week and follow-up with cardiology according to Dr. Alfred. Discharge Activity: Return to Normal Activity Weight Bearing Status: Weight bearing as tolerated Call your doctor if you observe: Fever of 101 or Higher, Shortness of breath, Dizziness, Fainting spells, Chest pain, Increased palpitations (irregular heartbeat), Uncontrolled pain Home Medications: Medications to take at Discharge Esomeprazole Mag Trihydrate [Nexium] 40 mg PO DAILY 10/03/13 Potassium Chloride [Klor-Con 10] 40 meq PO DAILY 10/03/13 Multivitamins,Ther W-Minerals [Multivitamin With Minerals] 1 tab PO DAILY Nitroglycerin [Nitrostat] 0.4 mg SUBLINGUAL Q5M PRN 12/10/13 Testosterone Cypionate [Depo-Testosterone] 100 mg IM Q7D 12/10/13 Aspirin E.C. [Ecotrin] 81 mg PO DAILY@0800 08/17/16 Meloxicam [Mobic] 7.5 mg PO DAILY 08/17/16 amlodipine 10 mg tablet 10 mg PO QDAY 06/09/17 Duloxetine Hcl [Cymbalta] 30 mg PO DAILY 10/30/17 Gabapentin [Neurontin] 300 mg PO QHS 10/30/17 Losartan Potassium [Cozaar] 25 mg PO DAILY #30 tab 10/31/17 Metoprolol Tartrate [Lopressor (beta jacob)] 25 mg PO BID #90 tab 10/31/17 Following Prescrptions Were Given to Patient: Losartan Potassium [Cozaar] 25 mg PO DAILY #30 tab Metoprolol Tartrate [Lopressor (beta jacob)] 25 mg PO BID #90 tab Primary Care Physician: Jagjit Myers MD [Primary Care Provider] - Please follow up with your Primary Care Physician in: 1 week. Disposition: Home Minutes spent on discharge:: 25 Patient Condition:: Stable Medical Necessity - Tobacco Use Smoking Status: Former smoker Tobacco Use: Chew Meaningful Use Info Meaningful Use Diagnoses (Choose all that apply): None applicable Code Visit Inpatient E&M: 70023 Disch Hosp
--- NOTE | 2017-10-31 15:09 | PCM.PN.CARD ---
Subjectve: Patient was evaluated earlier this day. He remained without acute symptoms of chest discomfort or difficulty breathing. He subsequently underwent diagnostic cardiac catheterization. He remains without obvious post procedure related adverse events. Objective: Vital Signs Temp Pulse Resp BP Pulse Ox 98.1 F 68 16 139/73 H 96 10/31/17 09:35 10/31/17 14:12 10/31/17 14:12 10/31/17 14:12 10/31/17 14:12 Oxygen Delivery Method Room Air Weight: 315 lb 11.231 oz Body Mass Index (BMI) 37.4 Intake and Output for Last 24 Hours 10/29/17 10/30/17 10/31/17 23:59 23:59 23:59 Intake Total 450 / 450 467 / 467 Balance 450 / 450 467 / 467 10/30/17 14:55: Troponin I < 0.015 10/30/17 15:28: APTT 118.3 H* 10/30/17 17:51: Troponin I < 0.015 10/31/17 03:45: Urine Color Yellow, Urine Clarity Clear, Urine pH 6.0, Ur Specific [place] 1.020, Urine Protein Negative, Urine Glucose (UA) Normal, Urine Ketones Negative, Urine Occult Blood Negative, Urine Nitrite Negative, Urine Bilirubin Negative, Urine Urobilinogen Normal, Ur Leukocyte Esterase Negative, Urine RBC 0 SEEN, Urine WBC 0 SEEN 10/31/17 05:20: WBC 5.6, RBC 5.79, Hgb 16.4, Hct 47.2, MCV 81.5, MCH 28.3, MCHC 34.7, RDW 13.6, RDW Differential 40.3, Plt Count 148 L, MPV 11.6 10/31/17 05:20: Sodium 141, Potassium 3.6, Chloride 107, Carbon Dioxide 26.0, Anion Gap 8, BUN 16, Creatinine 1.17, Est GFR (MDRD) Af Amer 82, Est GFR (MDRD) Non-Af 68, BUN/Creatinine Ratio 13.7, Glucose 94, Calcium 8.2 L, Triglycerides 185, Cholesterol 116, LDL Cholesterol 54, VLDL Cholesterol 37, HDL Cholesterol 25 L 10/31/17 05:20: PT 14.0, INR 1.1, APTT 38.7 H Rhythm: Sinus rhythm Cardiac Cath: Per the cardiac catheterization report: LAD stent patent: No other angiographically significant appearing CAD: Overall LV systolic function remains preserved: Please see official report Medical Necessity - Tobacco Use Smoking Status: Former smoker Tobacco Use: Chew Assessment/Plan 1. Unstable angina pectoris The patient presents with symptoms of relatively nonexertional and increasing in frequency chest discomfort, dyspnea, diaphoresis, and progressive fatigue hurting for unstable angina pectoris. According to the patient's history this appears similar to the patient's presentation prior to a previous diagnosis of CAD and PCI. The patient has undergone noncardiac evaluation with cardiac enzymes and ECGs. They have been unremarkable for any acute changes at this time. The patient has subsequently undergone evaluation with diagnostic cardiac catheterization. The findings are as noted above. Based upon the aforementioned findings there is now concerned that the patient's symptoms are not related to his underlying CAD status or changes in LV systolic function. Thus other etiologies, other than cardiac etiologies, need to be considered. 2. CAD status post LAD PCI The patient does have a previous diagnosis of CAD as noted above. He has continued medical management as best as tolerated. His medications will be adjusted as needed. 3. Hyperlipidemia The patient does have a history of hyperlipidemia. He has been on lipid-lowering therapy in the past. He has had concerns of associated symptoms. His lipids will be reassessed. He may need to reattempt lipid-lowering therapy, etc., to minimize his cardiovascular risks. 4. Hypertension The patient will continue medical management with adjustment as deemed appropriate. 5. Confusion The patient has had episodes of confusion. It is unclear as to the etiology. Is also unclear as to whether or not his confusion and potentially associated anxiety related events, are related to his symptoms. He may need further noncardiac evaluation of these concerns. Comment: The above was discussed with the patient and with his spouse present and Dr. Garcia. This note was generated with [employer] software. It may contain incorrect words, spelling, and punctuation that were not noted in checking the note before signing.
--- NOTE | 2017-10-31 15:13 | PN.CARD_ITS ---
Subjectve: Patient was evaluated earlier this day. He remained without acute symptoms of chest discomfort or difficulty breathing. He subsequently underwent diagnostic cardiac catheterization. He remains without obvious post procedure related adverse events. Objective: Vital Signs Temp Pulse Resp BP Pulse Ox 98.1 F 68 16 139/73 H 96 10/31/17 09:35 10/31/17 14:12 10/31/17 14:12 10/31/17 14:12 10/31/17 14:12 Oxygen Delivery Method Room Air Weight: 315 lb 11.231 oz Body Mass Index (BMI) 37.4 Intake and Output for Last 24 Hours 10/29/17 10/30/17 10/31/17 23:59 23:59 23:59 Intake Total 450 / 450 467 / 467 Balance 450 / 450 467 / 467 10/30/17 14:55: Troponin I < 0.015 10/30/17 15:28: APTT 118.3 H* 10/30/17 17:51: Troponin I < 0.015 10/31/17 03:45: Urine Color Yellow, Urine Clarity Clear, Urine pH 6.0, Ur Specific [place] 1.020, Urine Protein Negative, Urine Glucose (UA) Normal, Urine Ketones Negative, Urine Occult Blood Negative, Urine Nitrite Negative, Urine Bilirubin Negative, Urine Urobilinogen Normal, Ur Leukocyte Esterase Negative, Urine RBC 0 SEEN, Urine WBC 0 SEEN 10/31/17 05:20: WBC 5.6, RBC 5.79, Hgb 16.4, Hct 47.2, MCV 81.5, MCH 28.3, MCHC 34.7, RDW 13.6, RDW Differential 40.3, Plt Count 148 L, MPV 11.6 10/31/17 05:20: Sodium 141, Potassium 3.6, Chloride 107, Carbon Dioxide 26.0, Anion Gap 8, BUN 16, Creatinine 1.17, Est GFR (MDRD) Af Amer 82, Est GFR (MDRD) Non-Af 68, BUN/Creatinine Ratio 13.7, Glucose 94, Calcium 8.2 L, Triglycerides 185, Cholesterol 116, LDL Cholesterol 54, VLDL Cholesterol 37, HDL Cholesterol 25 L 10/31/17 05:20: PT 14.0, INR 1.1, APTT 38.7 H Rhythm: Sinus rhythm Cardiac Cath: Per the cardiac catheterization report: LAD stent patent: No other angiographically significant appearing CAD: Overall LV systolic function remains preserved: Please see official report Medical Necessity - Tobacco Use Smoking Status: Former smoker Tobacco Use: Chew Assessment/Plan 1. Unstable angina pectoris The patient presents with symptoms of relatively nonexertional and increasing in frequency chest discomfort, dyspnea, diaphoresis, and progressive fatigue hurting for unstable angina pectoris. According to the patient's history this appears similar to the patient's presentation prior to a previous diagnosis of CAD and PCI. The patient has undergone noncardiac evaluation with cardiac enzymes and ECGs. They have been unremarkable for any acute changes at this time. The patient has subsequently undergone evaluation with diagnostic cardiac catheterization. The findings are as noted above. Based upon the aforementioned findings there is now concerned that the patient' s symptoms are not related to his underlying CAD status or changes in LV systolic function. Thus other etiologies, other than cardiac etiologies, need to be considered. 2. CAD status post LAD PCI The patient does have a previous diagnosis of CAD as noted above. He has continued medical management as best as tolerated. His medications will be adjusted as needed. 3. Hyperlipidemia The patient does have a history of hyperlipidemia. He has been on lipid- lowering therapy in the past. He has had concerns of associated symptoms. His lipids will be reassessed. He may need to reattempt lipid-lowering therapy, etc., to minimize his cardiovascular risks. 4. Hypertension The patient will continue medical management with adjustment as deemed appropriate. 5. Confusion The patient has had episodes of confusion. It is unclear as to the etiology. Is also unclear as to whether or not his confusion and potentially associated anxiety related events, are related to his symptoms. He may need further noncardiac evaluation of these concerns. Comment: The above was discussed with the patient and with his spouse present and Dr. Garcia. This note was generated with [employer] software. It may contain incorrect words, spelling, and punctuation that were not noted in checking the note before signing.
== END 2017-10-31 14:59 | disposition home or self-care (01) | DRG 287 ==
PROVIDERS: Internal Medicine Cardiovascular Disease; Family Provider Family Medicine; PCP Family Medicine; Visit Provider Hospitalist
DX: I25.110 Atherosclerotic heart disease of native coronary artery with unstable angina pectoris (principal); I10 Essential (primary) hypertension; I44.0 Atrioventricular block, first degree; E78.5 Hyperlipidemia, unspecified; G47.33 Obstructive sleep apnea (adult) (pediatric); E66.9 Obesity, unspecified; R41.0 Disorientation, unspecified; Z87.891 Personal history of nicotine dependence; Z79.82 Long term (current) use of aspirin; Z86.711 Personal history of pulmonary embolism; Z68.37 Body mass index [BMI] 37.0-37.9, adult
CPT/HCPCS: 36415; 80048; 80061; 81001; 84443; 84484; 85027; 85610; 85730; 93005; 93458; 99152; 99153; 99251; 99406; J7030; Q9967; A4216; C1769; C1894; G0463

== ENCOUNTER → 2018-07-06 07:00 | Outpatient (CLI) | payer OTHER, SELFPAY ==
[2018-06-25 11:18] VITALS: BMI 39.7
--- NOTE | 2018-07-06 11:33 | PFT ---
INTRODUCTION: The patient is a 62-year-old male that presents for pulmonary function studies secondary to a diagnosis of dyspnea on exertion. Respiratory therapy reports good patient effort. Bronchodilators were used during testing. INTERPRETATION: Forced expiration spirometry demonstrates no evidence of a large airways obstructive ventilatory defect. There was no significant response to aerosolized bronchodilators, based upon strict ATS criteria. Spirograms are of good quality and plateau gradually indicating slow emptying of the lungs. Body plethysmography was performed and reveals lung volumes to be within normal limits. Diffusing capacity by single breath CO is within normal limits at 98% of predicted. IMPRESSION: Grossly normal pulmonary function studies. Of note, TLC is at the lower limits of normal, and could be indicative of a very early restrictive process.
--- OUTSIDE RECORDS SUMMARY | 2018-09-09 14:08 | XMS RPT_ITS ---
:1955 Author Organization OHIP Support Name Relationship Address Phone ANN GARZON Unavailable [address] + [place] [address] JUSTIN GARZON Unavailable Unavailable + [place] [phone] [employer] Unavailable [address] [facility] + [place] [address] ANN GARZON Unavailable [address] + [place] [address] JACKI GARZONIE Unavailable Unavailable + [place] [phone] [employer] Unavailable [address] [facility] + [place] [address] ANN GARZON Unavailable [address] + [place] [address] [employer] Unavailable [address] [facility] [address] + [address] [employer] Unavailable [address] [facility] + [place] [address] ANN GARZON Unavailable [address] + [place] [address] MIKHAIL AGRZON Unavailable . + ., [place] . [employer] Unavailable [address] [facility] + [place] [address] ANN GARZON Unavailable [address] + [place] [address] MIKHAIL GARZON Unavailable Unavailable + [employer] Unavailable [address] [facility] + [place] [address] ANN GARZON Unavailable [address] + [place] [address] MIKHAIL GAROZN Unavailable Unavailable + [employer] Unavailable [address] [facility] + [place] [address] ANN GARZON Unavailable [address] + [place] [address] MIKHAIL GARZON Unavailable Unavailable + [employer] Unavailable [address] [facility] + [place] [address] ANN GARZON Unavailable [address] + [place] [address] MIKHAIL GARZON Unavailable Unavailable + [employer] Unavailable [address] [facility] + [place] [address] DURANANN Unavailable [address] + [place] [address] MIKHAIL GARZON Unavailable Unavailable + [employer] Unavailable [address] [facility] + [place] [address] DURANANN MCFARLANE Unavailable [address] + [place] [address] MIKHAIL GARZON Unavailable Unavailable + [employer] Unavailable [address] [facility] + [place] [address] DURANANN MCFARLANE Unavailable [address] + [place] [address] MIKHAIL GARZON Unavailable Unavailable + [employer] Unavailable [address] [facility] + [place] [address] DURANANN MCFARLANE Unavailable [address] + [place] [address] MIKHAIL GARZON Unavailable Unavailable + [employer] Unavailable [address] [facility] + [place] [address] DURANBEARAN Unavailable Unavailable + ANN GARZON Unavailable Unavailable Unavailable ANN GARZON Unavailable NA + [place], [place] MIKHAIL GARZON Unavailable NA + [place], [place] GRISELDA FRITZ Unavailable [address] [place] [address] + [place] [address] Care Team Providers Name Role Phone Sincere HUNG (PA-C) Attending Unavailable JAGJIT CHEEMA Attending Unavailable JAGJIT CHEEMA Attending Unavailable SUSAN KERR (CUSTOMER SERVICE CORRESPONDENCE CLERK) Referring Unavailable Sincere HUNG (PA-C) Attending Unavailable JAGJIT CHEEMA Referring Unavailable Sincere HUNG (PA-C) Referring Unavailable Sincere HUNG (PA-C) Referring Unavailable Sincere HUNG (PA-C) Attending Unavailable JAGJIT CHEEMA Referring Unavailable Sincere HUNG (PA-C) Referring Unavailable LENIN GARCIA (PA) Attending Unavailable JAGJIT CHEEMA Referring Unavailable JAGJIT CHEEMA Attending Unavailable JAGJIT CHEEMA Referring Unavailable DR JAGJIT SOUZA Admitting Unavailable ALYSA, DR JAGJIT Zaragoza Attending Unavailable ALYSA, DR JAGJIT Zaragoza Primary Care Unavailable Hussein Gramajo Attending Unavailable [place], Jagjit Referring Unavailable Shaji Wyatt D.O. Attending Unavailable BellmeadJagjit Referring Unavailable Shaji Wyatt D.O. Attending Unavailable Shaji Wyatt D.O. Referring Unavailable [facility] Jagjit Primary Care Unavailable Shaji Wyatt D.O. Attending Unavailable Shaji Wyatt D.O. Referring Unavailable Dyana Alvarez Attending Unavailable Dyana Alvarez Referring Unavailable [facility] Primary Care Unavailable Ashelfah, Ghasem Attending Unavailable [facility] Primary Care Unavailable Jopperi, Nahum Admitting Unavailable Jopperi, Nahum Referring Unavailable Mood[place]aw, Willis Consulting Unavailable Jopperi, Nahum Admitting Unavailable Jopperi, Nahum Attending Unavailable Jopperi, Nahum Referring Unavailable [facility] Primary Care Unavailable [place], Willis Consulting Unavailable Jopperi, Nahum Consulting Unavailable Jopperi, Nahum Admitting Unavailable [place], Willis Attending Unavailable Jopperi, Nahum Referring Unavailable [facility] Primary Care Unavailable [place], Willis Consulting Unavailable Jopperi, Nahum Consulting Unavailable Jopperi, Nahum Admitting Unavailable Ashelfah, Ghasem Attending Unavailable Joronaldoeri, Nahum Referring Unavailable [facility] Primary Care Unavailable [place], Willis Consulting Unavailable Ashelfah, Ghasem Consulting Unavailable Jopperi, Nahum Admitting Unavailable [place], Willis Attending Unavailable Jopperi, Nahum Referring Unavailable [facility] Primary Care Unavailable [place], Willis Consulting Unavailable Ashelfah, Ghasem Consulting Unavailable Mikki Fairchild Attending Unavailable [facility] Primary [facility] Unavailable Dyana Jim Attending Unavailable Gamal Ramos Attending Unavailable [facility] Unavailable PROBLEMS PROBLEMS DATE TYPE CONDITION / CODE ATTENDING STATUS SOURCE 07/13/2018 Active Gout, unspecified / NA Active [facility] M10.9(ICD-10) [facility] [place] [facility] 07/13/2018 Unknown R06.09 - Other forms Shaji Edmundo, Active [place] of dyspnea / [facility] Community R06.09(ICD-10) Hospital Repository 06/25/2018 Unknown E66.9 - Obesity, Shaji Edmundo Active [facility] unspecified / [facility] E66.9(ICD-10) Hospital Repository 06/25/2018 Unknown G47.33 - Obstructive Shaji Wyatt Active [facility] sleep apnea (adult) [facility] (pediatric) / Hospital G47.33(ICD-10) Repository 06/25/2018 Unknown I25.110 - Shaji Edmundo, Active [facility] Atherosclerotic D.O. Community heart disease of [facility] coronary Repository artery with unstable angina pectoris / I25.110(ICD-10) 06/25/2018 Unknown F17.211 - Nicotine Shaji Edmundo Active [facility] dependence, D[facility] Community cigarettes, in Hospital remission / Repository F17.211(ICD-10) 05/30/2018 Unknown I73.9 - Peripheral Avila Hussein Galvin Active [facility] vascular disease, Community unspecified / Hospital I73.9(ICD-10) Repository 05/30/2018 Unknown I25.10 - RoofHussein Active [place] Atherosclerotic Community heart disease of [facility] [place] coronary Repository artery without angina pectoris / I25.10(ICD-10) 05/30/2018 Unknown E78.5 - RoofHussein Active [facility] Hyperlipidemia, Community unspecified / Hospital E78.5(ICD-10) Repository 05/30/2018 Unknown R73.03 - Prediabetes Hussein Gramajo Active [facility] / R73.03(ICD-10) Community Hospital Repository 05/22/2018 Active Nasal mucositis NA Active [facility] (ulcerative) / Clinic [facility] J34.81(ICD-10) [facility] 09/14/2017 Active Polyarthritis, NA Active [facility] unspecified / Clinic [facility] M13.0(ICD-10) [facility] 05/22/2018 Active Secondary NA Active [facility] polycythemia / [facility] D75.1(ICD-10) [facility] 05/22/2018 Active Benign prostatic NA Active [facility] hyperplasia with Clinic [facility] lower urinary tract [facility] symptoms / Repository N40.1(ICD-10) 05/22/2018 Active 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 Clinic Main / N13.8(ICD-10) [facility] 05/22/2018 Active Chronic sinusitis, NA Active [facility] unspecified / Clinic [facility] J32.9(ICD-10) [facility] 05/06/2016 Active Hyperlipidemia, NA Active [facility] unspecified / [facility] E78.5(ICD-10) [facility] 04/19/2018 Active 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, unspecified / Clinic Main E27.9(ICD-10) [facility] 04/12/2018 Active Unspecified NA Active [facility] abdominal pain / Clinic Main R10.9(ICD-10) [facility] 04/12/2018 Active Fever, unspecified / NA Active [facility] R50.9(ICD-10) [facility] [place] [facility] 10/30/2017 Admitting Chest pain, ALYSA, DR Ruby Kimball Diagnosis unspecified / [facility] R079(ICD-10) Hospital Repository 10/30/2017 Principle Chest pain, ALYSA, DR Ruby Kimball Diagnosis unspecified / [facility] R079(ICD-10) Hospital Repository 10/30/2017 Secondary Essential (primary) ALYSA, DR Ruby Kimball Diagnosis hypertension / [facility] I10(ICD-10) Hospital Repository 10/30/2017 Secondary Atherosclerotic ALYSA, DR Ruby Kimball Diagnosis heart disease of [facility] Hospital artery without Repository angina pectoris / I2510(ICD-10) 10/30/2017 Secondary Presence of coronary ALYSA, DR Ruby Kimball Diagnosis angioplasty implant [facility] / Hospital Z955(ICD-10) Repository 10/30/2017 Secondary Personal history of DR ALYSA Active Stan Kimball Diagnosis transient ischemic [facility] attack (TIA), and Hospital cerebral infarction Repository without residual deficits / Z8673(ICD-10) 10/30/2017 Secondary Nicotine dependence, DR ALYSA Active Stan Kimball Diagnosis chewing tobacco, JAGJIT Nik [facility] uncomplicated / Hospital E52077(ICD-10) Repository 09/13/2017 Active Hypokalemia / NA Active [facility] E87.6(ICD-10) [facility] [place] [facility] 09/13/2017 Active Myalgia / NA Active [facility] M79.1(ICD-10) [facility] [place] [facility] 09/13/2017 Active Other fatigue / NA Active [facility] R53.83(ICD-10) [facility] [place] [facility] PROCEDURES PROCEDURES No Procedure Records FoundRESULTS RESULTS CBC AND DIFFERENTIAL Collected: 07/13/2018 Status: F Source: TEA 12:33 PM [facility] REPOSITORY TYPE CODE TESTS RESULT OUT OF REFERENCE UNITS RANGE LAB WBC 3.70-11.00 k/uL WBC 6.52 LAB RBC 4.20-6.00 m/uL RBC High 6.17 LAB HGB 13.0-17.0 g/dL High Hemoglobin 17.2 LAB HCT 39.0-51.0 % High Hematocrit 52.4 LAB MCV 80.0-100.0 fL MCV 84.9 LAB MCH 26.0-34.0 pG MCH 27.9 LAB MCHC 30.5-36.0 g/dL MCHC 32.8 LAB RDWCV 11.5-15.0 % RDW-CV 13.6 LAB PLTCT 150-400 k/uL Low Platelet Count 128 LAB MPV 9.0-12.7 fL MPV 12.0 LAB ANEUT % Neut% 70.5 LAB AANEUT 1.45-7.50 k/uL Abs Neut 4.60 LAB ALYMP % Lymph% 18.1 LAB AALYMP 1.00-4.00 k/uL Abs Lymph 1.18 LAB AMONO % Harris% 9.4 LAB AAMONO <0.87 k/uL Abs Harris 0.61 LAB AEOS % Eosin% 1.4 LAB AAEOS <0.46 k/uL Abs Eosin 0.09 LAB ABASO % Baso% 0.6 LAB AABASO <0.11 k/uL Abs Baso 0.04 LAB AUNRBC 0 /100 WBC NRBCs 0.0 LAB ABNRBC <0.01 k/uL Absolute nRBC <0.01 LAB DTYP DTYPE Auto Diff Performed By: #### CBCDIF, WSR, URIC #### [facility] [address] [place], [place] [address] SED RATE WESTERGREN Collected: 07/13/2018 Status: F Source: TEA 12:[address] [facility] REPOSITORY TYPE CODE TESTS RESULT OUT OF REFERENCE UNITS RANGE LAB WSR 0-15 mm/hr Sed Rate Westergren 2 Performed By: #### CBCDIF, WSR, URIC #### [facility] [address] [place] [id number] URIC ACID Collected: 07/13/2018 Status: F Source: TEA 12:[address] [facility] REPOSITORY TYPE CODE TESTS RESULT OUT OF RANGE REFERENCE UNITS LAB URIC 4.0-8.1 mg/dL Uric Acid 6.4 Performed By: #### CBCDIF, WSR, URIC #### [facility] [address] [place], [place] [address] PROGRESS Observed: 07/13/2018 Status: COMPLETED Source: TEA 11:[address] [facility] REPOSITORY HNO ID: [id number] Author: Jagjit Cheema Service: (none) Author Type: Physician Type: Progress Notes Filed: 07/14/2018 9:54 AM Note Text: Patient presents with: Gout HPI: Patient presents today for office visit for acute visit. Nursing Notes: Isabel Cottrell Ma 07/13/2018 11:17 AM Unsigned GOUT: Pt c/o of pain and redness in right great toe for a few days. Pt takes allopurinol and meloxicam with no relief. Seems similar to gout he has had in the past. Still on allopurinol. No trauma. No fever. Was swollen and red and warm. MEDICATIONS: Current Outpatient Prescriptions: esomeprazole (NEXIUM) 40 mg capsule Take 1 capsule by mouth once daily. allopurinol (ZYLOPRIM) 100 mg tablet TAKE ONE TABLET BY MOUTH ONCE DAILY FOR GOUT testosterone cypionate (DEPO-TESTOSTERONE) 200 mg/mL injection INJECT 0.5 ML ONCE A WEEK aspirin, enteric coated (ASPIRIN, ENTERIC COATED) 81 mg EC tablet Take 81 mg by mouth once daily. finasteride (PROSCAR) 5 mg tablet Take 1 tablet by mouth once daily. meloxicam (MOBIC) 15 mg tablet Take 1 tablet by mouth once daily. With food. albuterol HFA (PROAIR HFA) 90 mcg/actuation inhaler Inhale 2 Puffs as instructed every 4 hours as needed (FOR COUGH OR WHEEZE). Cholecalciferol, Vitamin D3, (VITAMIN D) 1,000 unit cap Take 1 capsule by mouth once daily. DULoxetine (CYMBALTA) 30 mg capsule Take 1 capsule by mouth once daily. gabapentin (NEURONTIN) 300 mg capsule Take 1 capsule by mouth three times daily. potassium chloride (K-TAB) 10 mEq tablet Take 2 tablets by mouth once daily. amLODIPine (NORVASC) 5 mg tablet TAKE 1 TABLET BY MOUTH ONCE DAILY albuterol HFA (PROAIR HFA) 90 mcg/actuation inhaler Inhale 2 Puffs as instructed every 4 hours as needed (FOR COUGH OR WHEEZE). cyanocobalamin (VITAMIN B-12) 1,000 mcg tab Take 1,000 mcg by mouth once daily. Syringe with Needle, Disp, (BD LUER-YOHANA SYRINGE) 3 mL 23 x 1 1/2 syrg Uses 4 syringes per month with testosterone injections (Patient taking differently: Inject 1 Each intramuscularly once each week. Uses 4 syringes per month with testosterone injections) Needle, Disp, 18 G (BD NOKOR ADMIX NEEDLE) 18 x 1 1/2 ndle Uses 4 per month to draw up testosterone from vial (Patient taking differently: Inject 1 Each intramuscularly once each week. Uses 4 per month to draw up testosterone from vial) MULTIVITAMIN TAB Take one(1) tablet daily BY MOUTH. No current facility-administered medications for this visit. ALLERGIES: ALLERGIES Allergen Reactions - Sulfa (Sulfonamide * Rash - Motrin [Ibuprofen] Rash, Itching PAST MEDICAL HISTORY Diagnosis Date - Abdominal pain, unspecified site - Adrenal nodule (HCC) unchanged after >2 years - Anxiety state, unspecified - Asthma childhood - CAD (coronary artery disease) - Chronic low back pain - Diaphragmatic hernia without mention of obstruction or gangrene - Diaphragmatic hernia without mention of obstruction or gangrene - Diverticulosis of colon (without mention of hemorrhage) - Esophageal reflux - Essential hypertension, benign 03/20/2012 - Fibromyalgia - Hemorrhoids - Hypogonadism male treated per urology - Impotence of organic origin - Lung nodule repeat ct in 01/02 - Palpitations - Personal history of colonic polyps 2004 polyps - Pulmonary embolism (HCC) completed treatment per pulm - Recurrent pneumonia 14 times PAST SURGICAL HISTORY Procedure Laterality Date - COLONOSCOP W/ OR W/O [facility] SPEC 2004 Colonoscopy - COLONOSCOP W/ OR W/O [facility] SPEC 03/07/11 wnl - COLONOSCOPY N/A 07/20/2016 MAC - EGD N/A 07/20/2016 MAC - EGD W/O OR W/BRUSH/WASH 05/24/2011 EGD - HEMORRHOIDECTOMY, EXTNL; COMP 04/30/15 - LAP CHOLECYSTECT/CHOLANGIOGRAPHY 2004 [facility] [place] - Dr. 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 REVIEW OF SYSTEMS All other reviewed and negative other than HPI. HEALTH MAINTENANCE: Reviewed health maintenance issues today and recommended the following in detail. INFLUENZA(1) due on 02/17/2018 VITALS: BP 132/80 Pulse 60 Temp 36.2 ?C (97.2 ?F) Resp 20 Wt (!) 155.1 kg (342 lb) BMI 40.56 kg/m? Last 4 Encounter Wt Readings: Date: Wt: 07/13/2018 155.1 kg (342 lb) 06/15/2018 153.3 kg (338 lb) 05/22/2018 151 kg (333 lb) 02/27/2018 146.1 kg (322 lb) PHYSICAL EXAMINATION: General appearance: Well appearing, alert, in no acute distress, well-hydrated, well nourished Extremities: Pulses: normal, Edema: none, Negative findings: No cyanosis, clubbing or edema, No deformities present, Positive findings: redness and mild warmth over base of great toe and at dip joint. No signs of infection. Neuro: Negative. ASSESSMENT/PLAN: 1. Gout, unspecified cause, unspecified chronicity, unspecified site - ICD9: 274.9, ICD10: M10.9 (primary diagnosis) - ice and elevation. - Discussed risks and benefits of new medication with the patient. Advised them to call if any side effects or questions. - Red flags for re-assessment reviewed with patient in detail. - Call if symptoms worsen at all or if not better in one to two weeks - CBC + DIFF - SED RATE WESTERGREN - URIC ACID BLOOD - PREDNISONE 10 MG TABLET 2. Essential hypertension, benign - ICD9: 401.1, ICD10: I10 - good control - Goal of BP <130/80 Jagjit Cheema MD CNOV Observed: 07/13/2018 Status: COMPLETED Source: TEA 10:[address] [facility] REPOSITORY Office Visit (FAMPWS) LAZARO GARZON ([id number]) 1955 M Date Time Provider Department 07/13/18 10:20 AM JAGJIT CHEEMA During your visit today, we recorded the following information about you: Temperature Pulse Respiration Blood pressure 97.2 degrees 60/minute 20/minute 132/80 Weight 155.1 kg Isabel Cottrell Ma 07/13/2018 11:53 AM Signed GOUT: Pt c/o of pain and redness in right great toe for a few days. Pt takes allopurinol and meloxicam with no relief. aJgjit Cheema MD 07/14/2018 9:54 AM Signed Patient presents with: Gout HPI: Patient presents today for office visit for acute visit. Nursing Notes: Isabel Cottrell Ma 07/13/2018 11:17 AM Unsigned GOUT: Pt c/o of pain and redness in right great toe for a few days. Pt takes allopurinol and meloxicam with no relief. Seems similar to gout he has had in the past. Still on allopurinol. No trauma. No fever. Was swollen and red and warm. MEDICATIONS: Current Outpatient Prescriptions: esomeprazole (NEXIUM) 40 mg capsule Take 1 capsule by mouth once daily. allopurinol (ZYLOPRIM) 100 mg tablet TAKE ONE TABLET BY MOUTH ONCE DAILY FOR GOUT testosterone cypionate (DEPO-TESTOSTERONE) 200 mg/mL injection INJECT 0.5 ML ONCE A WEEK aspirin, enteric coated (ASPIRIN, ENTERIC COATED) 81 mg EC tablet Take 81 mg by mouth once daily. finasteride (PROSCAR) 5 mg tablet Take 1 tablet by mouth once daily. meloxicam (MOBIC) 15 mg tablet Take 1 tablet by mouth once daily. With food. albuterol HFA (PROAIR HFA) 90 mcg/actuation inhaler Inhale 2 Puffs as instructed every 4 hours as needed (FOR COUGH OR WHEEZE). Cholecalciferol, Vitamin D3, (VITAMIN D) 1,000 unit cap Take 1 capsule by mouth once daily. DULoxetine (CYMBALTA) 30 mg capsule Take 1 capsule by mouth once daily. gabapentin (NEURONTIN) 300 mg capsule Take 1 capsule by mouth three times daily. potassium chloride (K-TAB) 10 mEq tablet Take 2 tablets by mouth once daily. amLODIPine (NORVASC) 5 mg tablet TAKE 1 TABLET BY MOUTH ONCE DAILY albuterol HFA (PROAIR HFA) 90 mcg/actuation inhaler Inhale 2 Puffs as instructed every 4 hours as needed (FOR COUGH OR WHEEZE). cyanocobalamin (VITAMIN B-12) 1,000 mcg tab Take 1,000 mcg by mouth once daily. Syringe with Needle, Disp, (BD LUER-YOHANA SYRINGE) 3 mL 23 x 1 1/2 syrg Uses 4 syringes per month with testosterone injections (Patient taking differently: Inject 1 Each intramuscularly once each week. Uses 4 syringes per month with testosterone injections) Needle, Disp, 18 G (BD NOKOR ADMIX NEEDLE) 18 x 1 1/2 ndle Uses 4 per month to draw up testosterone from vial (Patient taking differently: Inject 1 Each intramuscularly once each week. Uses 4 per month to draw up testosterone from vial) MULTIVITAMIN TAB Take one(1) tablet daily BY MOUTH. No current facility-administered medications for this visit. ALLERGIES: ALLERGIES Allergen Reactions - Sulfa (Sulfonamide * Rash - Motrin [Ibuprofen] Rash, Itching PAST MEDICAL HISTORY Diagnosis Date - Abdominal pain, unspecified site - Adrenal nodule (HCC) unchanged after >2 years - Anxiety state, unspecified - Asthma childhood - CAD (coronary artery disease) - Chronic low back pain - Diaphragmatic hernia without mention of obstruction or gangrene - Diaphragmatic hernia without mention of obstruction or gangrene - Diverticulosis of colon (without mention of hemorrhage) - Esophageal reflux - Essential hypertension, benign 03/20/2012 - Fibromyalgia - Hemorrhoids - Hypogonadism male treated per urology - Impotence of organic origin - Lung nodule repeat ct in 01/02 - Palpitations - Personal history of colonic polyps 2004 polyps - Pulmonary embolism (HCC) completed treatment per pulm - Recurrent pneumonia 14 times PAST SURGICAL HISTORY Procedure Laterality Date - COLONOSCOP W/ OR W/O [facility] SPEC 2004 Colonoscopy - COLONOSCOP W/ OR W/O [facility] SPEC 03/07/11 wnl - COLONOSCOPY N/A 07/20/2016 MAC - EGD N/A 07/20/2016 MAC - EGD W/O OR W/BRUSH/WASH 05/24/2011 EGD - HEMORRHOIDECTOMY, EXTNL; COMP 04/30/15 - LAP CHOLECYSTECT/CHOLANGIOGRAPHY 2004 [facility] [place] - Dr. 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 REVIEW OF SYSTEMS All other reviewed and negative other than HPI. HEALTH MAINTENANCE: Reviewed health maintenance issues today and recommended the following in detail. INFLUENZA(1) due on 02/17/2018 VITALS: BP 132/80 Pulse 60 Temp 36.2 ?C (97.2 ?F) Resp 20 Wt (!) 155.1 kg (342 lb) BMI 40.56 kg/m? Last 4 Encounter Wt Readings: Date: Wt: 07/13/2018 155.1 kg (342 lb) 06/15/2018 153.3 kg (338 lb) 05/22/2018 151 kg (333 lb) 02/27/2018 146.1 kg (322 lb) PHYSICAL EXAMINATION: General appearance: Well appearing, alert, in no acute distress, well-hydrated, well nourished Extremities: Pulses: normal, Edema: none, Negative findings: No cyanosis, clubbing or edema, No deformities present, Positive findings: redness and mild warmth over base of great toe and at dip joint. No signs of infection. Neuro: Negative. ASSESSMENT/PLAN: 1. Gout, unspecified cause, unspecified chronicity, unspecified site - ICD9: 274.9, ICD10: M10.9 (primary diagnosis) - ice and elevation. - Discussed risks and benefits of new medication with the patient. Advised them to call if any side effects or questions. - Red flags for re-assessment reviewed with patient in detail. - Call if symptoms worsen at all or if not better in one to two weeks - CBC + DIFF - SED RATE WESTERGREN - URIC ACID BLOOD - PREDNISONE 10 MG TABLET 2. Essential hypertension, benign - ICD9: 401.1, ICD10: I10 - good control - Goal of BP <130/80 Jagjit Cheema MD Referring Provider: SELF [200] Allergies As of Date: 07/13/2018 Noted Allergy Reaction SULFA (SULFONAMIDE ANTIBIOTICS) 03/10/2005 2 - Rash MOTRIN (IBUPROFEN) 03/20/2012 2 - Rash 9 - Itching Date Reviewed: 07/13/2018 Reviewed by: Isabel Cottrell Ma - Fully Assessed Reason for Visit: Gout [239] Primary Visit Diagnosis:Gout, unspecified cause, unspecified chronicity, unspecified site [M10.9] Other Visit Diagnosis:Essential hypertension, benign [I10] Order(s):CBC + DIFF [SQCBCDIF] Order #: [id number] FUTURE SED RATE WESTERGREN [SQWSR] Order #: [id number] FUTURE URIC ACID BLOOD [SQURIC] Order #: [id number] FUTURE predniSONE (DELTASONE) 10 mg tabletTake 4 tabs daily x 3 days, then 3 tabs x 3 days, 2 tabs x 3 days, then 1 tab x3 days with food.Disp: 30 tabletRfl: 0 Prescriptions as of 07/13/2018 Sig: ESOMEPRAZOLE MAGNESIUM 40 MG * Take 1 capsule by mouth once * ALLOPURINOL 100 MG TABLET TAKE ONE TABLET BY MOUTH ONCE* TESTOSTERONE CYPIONATE 200 MG* INJECT 0.5 ML ONCE A WEEK ASPIRIN 81 MG TABLET,DELAYED * Take 81 mg by mouth once darlene* FINASTERIDE 5 MG TABLET Take 1 tablet by mouth once d* MELOXICAM 15 MG TABLET Take 1 tablet by mouth once d* ALBUTEROL SULFATE HFA 90 MCG/* Inhale 2 Puffs as instructed * CHOLECALCIFEROL (VITAMIN D3) * Take 1 capsule by mouth once * DULOXETINE 30 MG CAPSULE,KELSI* Take 1 capsule by mouth once * GABAPENTIN 300 MG CAPSULE Take 1 capsule by mouth three* POTASSIUM CHLORIDE ER 10 MEQ * Take 2 tablets by mouth once * AMLODIPINE 5 MG TABLET TAKE 1 TABLET BY MOUTH ONCE D* ALBUTEROL SULFATE HFA 90 MCG/* Inhale 2 Puffs as instructed * CYANOCOBALAMIN (VIT B-12) 1,0* Take 1,000 mcg by mouth once * SYRINGE WITH NEEDLE 3 ML 23 G* Uses 4 syringes per month wit* Patient taking differently: Inject 1 Each intramuscularly* NEEDLE (DISP) 18 GAUGE X 1 1/* Uses 4 per month to draw up t* Patient taking differently: Inject 1 Each intramuscularly* MULTIVITAMIN TABLET Take one(1) tablet daily BY M* PREDNISONE 10 MG TABLET Take 4 tabs daily x 3 days, t* Problem List As Of Date 07/13/2018 Noted Resolved Hyperlipidemia [E78.5] INVALID FOR* Palpitations [R00.2] INVALID FOR*07/13/2018 Shortness of breath [R06.02] INVALID FOR*07/13/2018 Diaphragmatic hernia without mention of obstruc*INVALID FOR* Esophageal reflux [K21.9] INVALID FOR* Asbestos exposure [Z77.090] INVALID FOR* Essential hypertension, benign [I10] INVALID FOR* Pulmonary embolism (HCC) [I26.99] INVALID FOR* Hyperhydrosis disorder [R61] INVALID FOR* Low testosterone [E34.9] INVALID FOR* CAD (coronary artery disease) s/p PTCA/STENT. *INVALID FOR* Sleep apnea [G47.30] INVALID FOR* Peyronie's disease [N48.6] INVALID FOR* Impotence of organic origin [N52.9] INVALID FOR* Asthma [J45.909] INVALID FOR* More... Adrenal nodule (HCC) [E27.9] INVALID FOR* More... Lung nodule [R91.1] INVALID FOR* More... Hypokalemia [E87.6] INVALID FOR* Polyarthritis [M13.0] INVALID FOR* Visit Notes: >> Isabel Cottrell Ma MonJul 13, 2018 11:15 AM Status: Signed GOUT: Pt c/o of pain and redness in right great toe for a few days. Pt takes allopurinol and meloxicam with no relief. Prescriptions ordered this encounter Disp Refills Start End PREDNISONE 10 MG TABLET 30 t* 0 07/13/2018 07/13/2018 Sig: Take 4 tabs daily x 3 days, then 3 tabs x 3 days, 2 tabs x 3 days, then 1 tab x3 days with food. PREDNISONE 10 MG TABLET 30 t* 0 07/13/2018 07/25/2018 Sig: Take 4 tabs daily x 3 days, then 3 tabs x 3 days, 2 tabs x 3 days, then 1 tab x3 days with food. Medications Discontinued During This Encounter predniSONE (DELTASONE) 10 mg tablet 30 t* 0 07/13/2018 07/13/2018 Sig: Take 4 tabs daily x 3 days, then 3 tabs x 3 days, 2 tabs x 3 days, then 1 tab x3 days with food. Disc: Reason for discontinue is not on file. Encounter Status:Closed by JAGJIT CHEEMA MD on 07/14/18 PULMONARY FUNCTION Observed: 07/06/2018 Status: F Source: [facility] TEST 11:36 AM [facility] [place] REPOSITORY [facility] Pulmonary Services/Neurology [address] [place] [address] MR#: [id number] Acct: [id number] Name: LAZARO GARZON Rep #: [id number] : 1955 62 From: Shaji Wyatt DO Referring Dr: Shaji Wyatt D.O. Status: REG CLI Ordering Dr: Date: Location: [facility] Sex: M C INTRODUCTION: The patient is a 62-year-old male that presents for pulmonary function studies secondary to a diagnosis of dyspnea on exertion. Respiratory therapy reports good patient effort. Bronchodilators were used during testing. INTERPRETATION: Forced expiration spirometry demonstrates no evidence of a large airways obstructive ventilatory defect. There was no significant response to aerosolized bronchodilators, based upon strict ATS criteria. Spirograms are of good quality and plateau gradually indicating slow emptying of the lungs. Body plethysmography was performed and reveals lung volumes to be within normal limits. Diffusing capacity by single breath CO is within normal limits at 98% of predicted. IMPRESSION: Grossly normal pulmonary function studies. Of note, TLC is at the lower limits of normal, and could be indicative of a very early restrictive process. 07/06/18 1136 <Electronically signed by Shaji Wyatt DO> Date Shaji Wyatt DO CC: Shaji Wyatt D.O.; Jagjit Cheema MD Date Dictated: 07/06/18 1133 Date Transcribed: 07/06/18 113 Canoe Builder: CHAUNCEY Signed PULMONARY VISIT REPORT Observed: 06/25/2018 Status: F Source: [facility] 12:06 PM [facility] [place] REPOSITORY [facility] [place] [address] [place] [address] OFFICE VISIT Date of Service: 06/25/18 MR#: [id number] Acct: [id number] Name: LAZARO GARZON Rep #: [id number] : 1955 Provider: Shaji Wyatt D.O. Age/Sex: 62/M Location: [facility] [place] Status: Signed Assessment AND Plan 1. DEENA (obstructive sleep apnea) G47.33 Plan The patient has known severe obstructive sleep apnea and is currently prescribed nocturnal BiPAP. However, the patient's weight has increased 60 pounds since his last polysomnogram and he currently reports the presence of nonrestorative sleep and daytime hypersomnolence. Therefore, I have recommended that the patient undergo a re- titration polysomnogram. Given that his current machine is end of life, would recommend new equipment upon completion of his re-titration study. I will see the patient back in follow- up in approximately 1 month. Orders Orders: 2. Dyspnea on exertion R06.09 Plan The patient has baseline dyspnea on exertion along with chest tightness and wheezing. He does have a previous smoking history and would therefore be a candidate to undergo pulmonary function studies to evaluate for the presence of obstructive lung disease. In the interim, the patient has been instructed to continue to utilize his albuterol metered-dose inhaler on an as-needed basis. Orders Orders: 3. Atherosclerosis of torres martinez coronary artery of torres martinez heart with unstable angina pectoris I25.110 lad stent pia 08/29 Plan Continue current medical management and follow-up with cardiology as scheduled. 4. Obesity E66.9 Plan Weight loss through dietary modification and a graded exercise regimen is strongly encouraged. 5. 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 Plan Detail Follow Up 1 Month (DMB) HPI HPI Comments Details: The patient is a 62-year-old male who presents to the clinic today in referral for evaluation of obstructive sleep apnea. The patient is currently being followed by Dr. Adriana Beltran. His is present at today's office visit. The patient underwent a polysomnogram initially in January 2007 which revealed mild obstructive sleep apnea with an overall apnea hypotony index of 7 events per hour. A follow-up split-night study completed in October 2011, demonstrated severe obstructive sleep apnea. It was recommended that the patient be initiated on bilevel pressure support with settings of 14/10 centimeters of water. The patient did not initially tolerate those pressures so his support was decreased to 10/6 centimeters of water. The patient's medical history is also significant for coronary artery disease status post PCI to his LAD, pulmonary embolism, hypertension and hyperlipidemia. The patient's heart catheterization in October 2017 showed ejection fraction of 60% and nonobstructive disease. The patient has a smoking history that includes 2 packs/day x 21 years, having quit completely in 1994. Unfortunately, following the cessation of combustible cigarettes, the patient went on to chew tobacco. He subsequently quit all nicotine-containing products as of November 2017. He has never undergone formal pulmonary function studies. He does have access to an albuterol rescue inhaler, which she utilizes approximately 2-3 times per month. In addition to his smoking history, the patient did grow up in a smoking household. He reports the presence of baseline exertional shortness of breath along with chest tightness and wheezing. The patient reports compliance with the use of his nocturnal Bipap therapy. However, since his polysomnogram in 2011, the patient's weight has increased 60 pounds. He is currently sleeping on average 6-7 hours per night. He endorses the presence of nonrestorative sleep, daytime hypersomnolence and occasional napping. 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 The patient has lived in [place] his entire life. He does currently keep a dog as a pet in his home environment. His weight has remained relatively stable. He believes that his current BiPAP machine is approximately 5-6 years old. His current DME provider is [facility]. He denies fevers, chills or night sweats. He additionally denies the presence of chest pain, dizziness or lightheadedness. Intake Vital Signs06/25/18 Height 6 ft 5 in 06/25/18 Weight: 335 lb 06/25/18 Body Mass Index (BMI) 39.7 Intake Visit Reasons: DEENA Limited Radiology Technician Required: No DME Vendor: [facility] Is patient in pain?: No Allergies Sulfa (Sulfonamide Antibiotics) Allergy (Verified 06/25/18 11:18) Unknown ibuprofen [From Motrin] Adverse Reaction (Verified 06/25/18 11:18) Itching Medications Esomeprazole Mag Trihydrate [Nexium] 40 mg PO DAILY 10/03/13 [History Confirmed 06/25/18] Potassium Chloride [Klor-Con 10] 40 meq PO DAILY 10/03/13 [History Confirmed 06/25/18] Multivitamins,Ther W-Minerals [Multivitamin With Minerals] 1 tab PO DAILY 12/10/13 [History Confirmed 06/25/18] Nitroglycerin [Nitrostat] 0.4 mg SUBLINGUAL Q5M PRN 12/10/13 [History Confirmed 06/25/18] Testosterone Cypionate [Depo-Testosterone] 100 mg IM Q7D 12/10/13 [History Confirmed 06/25/18] Aspirin E.C. [Ecotrin] 81 mg PO DAILY@0800 08/17/16 [History Confirmed 06/25/18] Meloxicam [Mobic] 7.5 mg PO DAILY 08/17/16 [History Confirmed 06/25/18] amlodipine 10 mg tablet 10 mg PO QDAY 06/09/17 [History Confirmed 06/25/18] Duloxetine Hcl [Cymbalta] 30 mg PO DAILY 10/30/17 [History Confirmed 06/25/18] Gabapentin [Neurontin] 300 mg PO QHS 10/30/17 [History Confirmed 06/25/18] losartan 25 mg tablet 25 mg PO DAILY #90 tab 05/30/18 [Rx Confirmed 06/25/18] metoprolol tartrate 25 mg tablet 25 mg PO BID #180 tab 05/30/18 [Rx Confirmed 06/25/18] PFSH Medical History Essential hypertension (Chronic) Atherosclerotic heart disease of torres martinez coronary artery without angina pectoris (Chronic) Abnormal myocardial perfusion study (Chronic) H/O percutaneous transluminal coronary angioplasty (Chronic) HLD (hyperlipidemia) (Chronic) Abnormal stress test (Chronic) DEENA (obstructive sleep apnea) (Chronic) TIA (transient ischemic attack) (Acute) BPH (benign prostatic hyperplasia) (Chronic) Fibromyalgia (Chronic) GERD (gastroesophageal reflux disease) (Chronic) HTN (hypertension) (Inactive) Surgical History Presence of stent in coronary artery (Chronic 08/2012) History of PTCA (Chronic 08/2012) History of left heart catheterization (LHC) (Chronic) History of repair of rotator cuff (Resolved) History of tonsillectomy and adenoidectomy (Resolved) Family History Mother CAD (coronary artery disease) Hypertension Hx of CABG Father Hypertension Myocardial infarction Grandfather Myocardial infarction paternal Grandmother Cancer pancreatic CA Grandfather CAD (coronary artery disease) Social History Smoking Status: Former smoker quit date: 06/19/94 pack-years: 42 how long ago did patient quit smokin second hand exposure: No alcohol intake: current alcohol intake frequency: holidays/special occasions only Alcohol type: beer substance use type: does not use caffeine: Yes what type of physical activity do you participate in: none Review of Systems Const CONSTITUTIONAL: Positive fatigue; negative anorexia, body ache, chills, daytime sleepiness, fever(s), night sweats, oral thrush, stops breathing during sleep, weight loss, sleeping in chair, weight loss, weight gain, frequent colds, seasonal allergies, other, headache(s) or orthopnea EETM Ear Nose Throat Mouth: Positive hearing normal; negative hard of hearing, hoarseness, dry mouth in morning, change in vision, itchy eyes, eye pain, swallowing Difficulty, ear pain, nose bleed, headache(s), mouth pain, nasal congestion, nasal discharge, post nasal drip, sinus pain, sinus pressure, sore throat or other Cardio Cardiovascular: Positive edema Location: lower extremity; negative chest pain, chest pain at rest, chest pain with activity, irregular heart rhythm, shortness of breath when lying down, palpitations, murmur or other Resp Respiratory: Positive as per HPI, shortness of breath shortness of breath: Positive with activity, wheezing and chest tightness; negative pain with cough, chest congestion, cough, pain on inspiration, inhalers, increase use of rescue inhalers, snoring, apnea or other Gastro Gastrointestional: Negative bloody stools, change in appetite, difficulty swallowing, reflux, hematemesis, melena stool, loose stool, constipation or other Genitourinary: Positive nocturia; negative blood in urine, pain with urination or other Musc Musculoskeletal: Negative body pain, back pain, neck pain or other Skin/Breast Skin/Breast: Negative dry skin, itching, rash, unusual bruising, breast lump or other Neuro Neurological: Negative restless legs, confusion, weakness or other Psych Psychocological: Negative abnormal sleep pattern, anxiety, thoughts of hurting self/others, hopelessness or other Lymph Lymphatic: Negative easy bleeding, easy bruising, swollen lymph nodes or other Exam Const Constitutional: Positive conversant, cooperative, in no acute respiratory distress, well developed, well nourished, good hygiene and obese Head Head: Positive normocephalic and atraumatic; negative cyanosis of lips/distal nose Eyes Eye: Positive clear conjunctiva; negative nystagmus or scleral abnormality Ears Ear: Positive hearing normal and external ears normal; negative hard of hearing Nose Nose: Positive external nose normal; negative epistaxis Mouth Mouth: Positive oral mucosae normal and posterior oropharynx is adequate; negative no lesions or post nasal drip Mallampati Score: II: Mallampati Score Neck Neck: Positive normal visual inspection and trachea midline; negative lymphadenopathy Chest Wall Chest: Positive symmetric chest movement Normal AP diameter. Resp lung sounds: Positive clear to auscultation and good air exchange; negative wheezes, rhonchi or rales Cardio Cardiac: Positive regular rate, regular rhythm, S1 normal and S2 normal; negative rub, gallop or murmur GI GI: Positive normal bowel sounds and obese Soft without distention Genitourinary: Positive deferred Musc Musculoskeletal: Positive steady gait Skin Pulmonary Skin Exam: Positive intact; negative lesion, ulcers, dermal atrophy or rash Pulses Pulse: Yes Pedal pulses present: Extremities Extremities: No clubbing, No cyanosis, No edema Neuro Neurologic: Yes conversant, Yes no focal neuro deficits, Yes cooperative Lymph Lymphatic: No lymphadenopathy Psych Appearance: Positive grossly normal Mental Status: Positive mental status grossly normal Mood: Positive congruent mood Affect: Positive normal affect Coding Level of Care Code Off vis,new,level 4 Diagnoses DEENA (obstructive sleep apnea) G47.33 Dyspnea on exertion R06.09 Atherosclerosis of torres martinez coronary artery of torres martinez heart with unstable angina pectoris I25.110 Associated angina: with unstable angina Coronary Disease-Associated Artery/Lesion type: torres martinez artery Habematolel vs. 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 06/25/18 1206 <Electronically signed by Shaji Wyatt DO> Date Shaji Owens Signature: Date (if applicable) CC: YEAST STACKER Hussein Gramajo; Willis Alfred MD; Jagjit Cheema MD PROGRESS Observed: 06/15/2018 Status: COMPLETED Source: TEA 9:49 AM [facility] [place] REPOSITORY O ID: [id number] Author: Lenin Garcia (Pa) Service: (none) Author Type: Physician Judicial Reporter Type: Progress Notes Filed: 06/15/2018 10:27 AM Note Text: [facility] [place] PATIENT INFO: Lazaro Garzon 62 year old PCP: Jagjit Cheema MD Referred by: Jagjit Cheema MD Consult: A consultation was requested by Jagjit Cheema MD for an opinion regarding Elevated PSA My final recommendations communicated back to the requesting physician by way of shared Medical record. CHIEF COMPLAINT: Elevated PSA HPI: This is a 62 year old male, who has Elevated PSA , which started in 2018, and involves the Prostate Patient states this mild in severity and mild in quality, and is happening intermittently Aggravating factors: on TRT and DEENA , Alleviating Factors: No . And the patient denies having Fever, Chills, Rigors, Nausea and Vomiting Patient had been on Proscar 5 mg daily until recently , which I believe is the cause for his rise in PSA, he is requesting to be restarted on Proscar 5 mg Will recheck PSA in 3 mo along with Total Testosterone , and HCT since he is requesting TRT follow up as well He has a history of ED for which he underwent IPP with Dr. Goff in 2014 PSA (ng/mL) Date Value 05/22/2018 3.19 09/13/2013 1.60 PSA Screening (ng/mL) Date Value 09/23/2015 1.60 VOIDING SYMPTOMS: NTF: 2 Times DTF: Q 2 HOURS FOS: Average Hesitancy: No Straining: No Intermittency: No Urgency: Yes Frequency: yes Dysuria: No Gross Hematuria: No U/A Dipstick Positive Blood - Only No Incomplete Voiding: No Double Voiding: No Post Void Dribbling: No Incontinence: No SEXUAL SYMPTOMS: ED: Patient has a Penile Implant in place Low T: IM TRT managed by Dr. Cheema ALLERGY: ALLERGIES Allergen Reactions - Sulfa (Sulfonamide * Rash - Motrin [Ibuprofen] Rash, Itching MEDICATIONS: Current Outpatient Prescriptions: albuterol HFA (PROAIR HFA) 90 mcg/actuation inhaler Inhale 2 Puffs as instructed every 4 hours as needed (FOR COUGH OR WHEEZE). Disp: 1 Inhaler Rfl: 2 allopurinol (ZYLOPRIM) 100 mg tablet TAKE ONE TABLET BY MOUTH ONCE DAILY FOR GOUT Disp: 90 tablet Rfl: 3 amLODIPine (NORVASC) 5 mg tablet TAKE 1 TABLET BY MOUTH ONCE DAILY Disp: 90 tablet Rfl: 3 aspirin, enteric coated (ASPIRIN, ENTERIC COATED) 81 mg EC tablet Take 81 mg by mouth once daily. Disp: Rfl: Cholecalciferol, Vitamin D3, (VITAMIN D) 1,000 unit cap Take 1 capsule by mouth once daily. Disp: 90 capsule Rfl: 3 cyanocobalamin (VITAMIN B-12) 1,000 mcg tab Take 1,000 mcg by mouth once daily. Disp: Rfl: DULoxetine (CYMBALTA) 30 mg capsule Take 1 capsule by mouth once daily. Disp: 30 capsule Rfl: 2 esomeprazole (NEXIUM) 40 mg capsule TAKE ONE CAPSULE BY MOUTH ONCE DAILY Disp: 90 capsule Rfl: 3 gabapentin (NEURONTIN) 300 mg capsule Take 1 capsule by mouth three times daily. Disp: 90 capsule Rfl: 11 meloxicam (MOBIC) 15 mg tablet Take 1 tablet by mouth once daily. With food. Disp: 90 tablet Rfl: 1 MULTIVITAMIN TAB Take one(1) tablet daily BY MOUTH. Disp: Rfl: 0 Needle, Disp, 18 G (BD NOKOR ADMIX NEEDLE) 18 x 1 /2 ndle Uses 4 per month to draw up testosterone from vial (Patient taking differently: Inject 1 Each intramuscularly once each week. Uses 4 per month to draw up testosterone from vial) Disp: 12 Each Rfl: 3 potassium chloride (K-TAB) 10 mEq tablet Take 2 tablets by mouth once daily. Disp: 180 tablet Rfl: 3 Syringe with Needle, Disp, (BD LUER-YOHANA SYRINGE) 3 mL 23 x 1 1/2 syrg Uses 4 syringes per month with testosterone injections (Patient taking differently: Inject 1 Each intramuscularly once each week. Uses 4 syringes per month with testosterone injections) Disp: 12 Syringe Rfl: 3 testosterone cypionate (DEPO-TESTOSTERONE) 200 mg/mL injection INJECT 0.5 ML ONCE A WEEK Disp: 10 mL Rfl: 0 albuterol HFA (PROAIR HFA) 90 mcg/actuation inhaler Inhale 2 Puffs as instructed every 4 hours as needed (FOR COUGH OR WHEEZE). Disp: 1 Inhaler Rfl: 3 No current facility-administered medications for this visit. Past Medical History PAST MEDICAL HISTORY Diagnosis Date - Abdominal pain, unspecified site - Adrenal nodule (HCC) unchanged after >2 years - Anxiety state, unspecified - Asthma childhood - CAD (coronary artery disease) - Chronic low back pain - Diaphragmatic hernia without mention of obstruction or gangrene - Diaphragmatic hernia without mention of obstruction or gangrene - Diverticulosis of colon (without mention of hemorrhage) - Esophageal reflux - Essential hypertension, benign 03/20/2012 - Fibromyalgia - Hemorrhoids - Hypogonadism male treated per urology - Impotence of organic origin - Lung nodule repeat ct in 01/02 - Palpitations - Personal history of colonic polyps 2004 polyps - Pulmonary embolism (HCC) completed treatment per pulm - Recurrent pneumonia 14 times Past Surgical History PAST SURGICAL HISTORY Procedure Laterality Date - COLONOSCOP W/ OR W/O [facility] SPEC 2004 Colonoscopy - COLONOSCOP W/ OR W/O [facility] SPEC 03/07/11 wnl - COLONOSCOPY N/A 07/20/2016 MAC - EGD N/A 07/20/2016 MAC - EGD W/O OR W/BRUSH/WASH 05/24/2011 EGD - HEMORRHOIDECTOMY, EXTNL; COMP 04/30/15 - LAP CHOLECYSTECT/CHOLANGIOGRAPHY 2004 [facility] [place] - Dr. Hernandes - PERCUTANEOUS CORONARY INTERVENTION stent to LAD - REMOVAL ADENOIDS,PRIMARY,<12 Y/O Adenoidectomy - REMOVAL OF TONSILS,<12 Y/O Tonsillectomy - REPAIR ROTATOR CUFF,ACUTE Rotator cuff repair Family History FAMILY HISTORY Problem Relation Age of Onset - Hypertension Mother - Heart Mother - Heart Father of [place] - Stroke Mother - Asthma Daughter - Allergies Mother - Allergies Father - Allergies Sister - Allergies Brother - Allergies Daughter REVIEW OF SYSTEMS: General: General: Well developed, well nourished. No acute distress HEENT: Negative for sore throat, difficulty swallowing. Negative for frequent or significant headaches, changes in vision or hearing. Cardiovascular: Positive: Hypertension and CAD, Stents Respiratory: Positive: DEENA on CPAP Gastrointestinal: No history of GERD, PUD, abd pain, difficulty swallowing, GI bleed. Renal: Negative for renal failure and No history of dialysis Musculoskeletal: Negative for joint pain or swelling, back pain or muscle pain. Skin: Negative for lesions, rash and itching. Psychological: No history of psychiatric symptoms or problems. Neurologic: No history of TIA's, stroke, TECHNOLOGY ANALYST tumor, impaired sensorium, hemiplegia, paraplegia or quadriplegia. No neurological symptoms or problems. Hematology/Oncology: No history of bleeding or clotting disorder. Pt is not taking anti-coagulation or platelet medications. No history of hematological symptoms or problems. Endocrine: No history of endocrinological symtoms or problems No history of DM; has not taken steroids w/in past 30 days. Negative for excessive sweating, thirst or hunger PHYSICAL EXAMINATION: General Appearance/ Constitutional: Well developed, well nourished, and in no apparent distress HEENT: Not examined Neck: Lymph Nodes: Not examined Cardiac: Normal Breast: Not examined Pulmonary: Ascultation: Normal Effort: Normal GI: Soft and Non-tender Peripheral Vascular: Not examined Extremities: Cyanosis absent and Edema absent Skin: Not examined Neurologic: Grossly non-focal and Alert and oriented (MALE): Penis: Normal without external lesions Testicles: bilaterally and normal Cord/Epididymis: bilaterally and normal Vas Deferens: bilaterally and normal Scrotum: Normal Prostate: About 35 gm, non tender, no nodules ADDITIONAL DATA REVIEWED: Most recent imaging Most recent labs Results for orders placed or performed in visit on 05/22/18 CBC + DIFF Result Value Ref Range WBC 5.73 3.70 - 11.00 k/uL RBC 6.35 (H) 4.20 - 6.00 m/uL Hemoglobin 17.8 (H) 13.0 - 17.0 g/dL Hematocrit 53.6 (H) 39.0 - 51.0 % MCV 84.4 80.0 - 100.0 fL MCH 28.0 26.0 - 34.0 pG MCHC 33.2 30.5 - 36.0 g/dL RDW-CV 13.1 11.5 - 15.0 % Platelet Count 144 (L) 150 - 400 k/uL MPV 11.8 9.0 - 12.7 fL Neut% 68.3 % Abs Neut (ANC) 3.91 1.45 - 7.50 k/uL Lymph% 20.4 % Abs Lymph 1.17 1.00 - 4.00 k/uL Harris% 9.6 % Abs Harris 0.55 <0.87 k/uL Eosin% 1.4 % Abs Eosin 0.08 <0.46 k/uL Baso% 0.3 % Abs Baso <0.03 <0.11 k/uL Nucleated Reds 0.0 0 /100 WBC Absolute nRBC <0.01 <0.01 k/uL Diff Type Auto Diff CARBOXYHEMOGLOBIN GOPI Result Value Ref Range Carboxyhemoglobin, Venous 1.3 <2.0 % PSA/PROSTSPECAG DIAG Result Value Ref Range PSA 3.19 (H) 0.00 - 2.59 ng/mL C-REACTIVE PROTEIN (CRP) Result Value Ref Range CRP 0.2 <0.9 mg/dL RADIOLOGY: N/A IMPRESSION / PLAN: > History of BPH w LUTS > Continue Proscar and flomax - refill give > Hx of ED - Pt has IPP -2014 > Hx of Low T > Currently on TRT IM Testosterone > Requires labs and closer follow up > > Elevated PSA > Most Likely due to being off the Proscar > Recheck PSA and Hormone Levels in 3 months I spent approximately 40 minutes in this visit, with more than 50% of the time devoted to patient discussion, counseling, review of records and/or coordination of care. Lenin Garcia, GLORIA, MT, PA-C CNOV Observed: 06/15/2018 Status: COMPLETED Source: TEA 9:[address] [facility] REPOSITORY Office Visit (UROLWS) LAZARO GARZON ([id number]) 1955 M Date Time Provider Department 06/15/18 9:30 AM LENIN GARCIA) UROLWS During your visit today, we recorded the following information about you: Temperature Pulse Blood pressure Weight 97.9 degrees 78/minute 160/86 153.3 kg Height 1.956 m ELO Ross 06/15/2018 10:27 AM Signed [facility] [place] PATIENT INFO: Lazaro Garzon 62 year old PCP: Jagjit Cheema MD Referred by: Jagjit Cheema MD Consult: A consultation was requested by Jagjit Cheema MD for an opinion regarding Elevated PSA My final recommendations communicated back to the requesting physician by way of shared Medical record. CHIEF COMPLAINT: Elevated PSA HPI: This is a 62 year old male, who has Elevated PSA , which started in 2018, and involves the Prostate Patient states this mild in severity and mild in quality, and is happening intermittently Aggravating factors: on TRT and DEENA , Alleviating Factors: No . And the patient denies having Fever, Chills, Rigors, Nausea and Vomiting Patient had been on Proscar 5 mg daily until recently , which I believe is the cause for his rise in PSA, he is requesting to be restarted on Proscar 5 mg Will recheck PSA in 3 mo along with Total Testosterone , and HCT since he is requesting TRT follow up as well He has a history of ED for which he underwent IPP with Dr. Goff in 2014 PSA (ng/mL) Date Value 05/22/2018 3.19 09/13/2013 1.60 PSA Screening (ng/mL) Date Value 09/23/2015 1.60 VOIDING SYMPTOMS: NTF: 2 Times DTF: Q 2 HOURS FOS: Average Hesitancy: No Straining: No Intermittency: No Urgency: Yes Frequency: yes Dysuria: No Gross Hematuria: No U/A Dipstick Positive Blood - Only No Incomplete Voiding: No Double Voiding: No Post Void Dribbling: No Incontinence: No SEXUAL SYMPTOMS: ED: Patient has a Penile Implant in place Low T: IM TRT managed by Dr. Cheema ALLERGY: ALLERGIES Allergen Reactions - Sulfa (Sulfonamide * Rash - Motrin [Ibuprofen] Rash, Itching MEDICATIONS: Current Outpatient Prescriptions: albuterol HFA (PROAIR HFA) 90 mcg/actuation inhaler Inhale 2 Puffs as instructed every 4 hours as needed (FOR COUGH OR WHEEZE). Disp: 1 Inhaler Rfl: 2 allopurinol (ZYLOPRIM) 100 mg tablet TAKE ONE TABLET BY MOUTH ONCE DAILY FOR GOUT Disp: 90 tablet Rfl: 3 amLODIPine (NORVASC) 5 mg tablet TAKE 1 TABLET BY MOUTH ONCE DAILY Disp: 90 tablet Rfl: 3 aspirin, enteric coated (ASPIRIN, ENTERIC COATED) 81 mg EC tablet Take 81 mg by mouth once daily. Disp: Rfl: Cholecalciferol, Vitamin D3, (VITAMIN D) 1,000 unit cap Take 1 capsule by mouth once daily. Disp: 90 capsule Rfl: 3 cyanocobalamin (VITAMIN B-12) 1,000 mcg tab Take 1,000 mcg by mouth once daily. Disp: Rfl: DULoxetine (CYMBALTA) 30 mg capsule Take 1 capsule by mouth once daily. Disp: 30 capsule Rfl: 2 esomeprazole (NEXIUM) 40 mg capsule TAKE ONE CAPSULE BY MOUTH ONCE DAILY Disp: 90 capsule Rfl: 3 gabapentin (NEURONTIN) 300 mg capsule Take 1 capsule by mouth three times daily. Disp: 90 capsule Rfl: 11 meloxicam (MOBIC) 15 mg tablet Take 1 tablet by mouth once daily. With food. Disp: 90 tablet Rfl: 1 MULTIVITAMIN TAB Take one(1) tablet daily BY MOUTH. Disp: Rfl: 0 Needle, Disp, 18 G (BD NOKOR ADMIX NEEDLE) 18 x 1 1/2 ndle Uses 4 per month to draw up testosterone from vial (Patient taking differently: Inject 1 Each intramuscularly once each week. Uses 4 per month to draw up testosterone from vial) Disp: 12 Each Rfl: 3 potassium chloride (K-TAB) 10 mEq tablet Take 2 tablets by mouth once daily. Disp: 180 tablet Rfl: 3 Syringe with Needle, Disp, (BD LUER-YOHANA SYRINGE) 3 mL 23 x 1 1/2 syrg Uses 4 syringes per month with testosterone injections (Patient taking differently: Inject 1 Each intramuscularly once each week. Uses 4 syringes per month with testosterone injections) Disp: 12 Syringe Rfl: 3 testosterone cypionate (DEPO-TESTOSTERONE) 200 mg/mL injection INJECT 0.5 ML ONCE A WEEK Disp: 10 mL Rfl: 0 albuterol HFA (PROAIR HFA) 90 mcg/actuation inhaler Inhale 2 Puffs as instructed every 4 hours as needed (FOR COUGH OR WHEEZE). Disp: 1 Inhaler Rfl: 3 No current facility-administered medications for this visit. Past Medical History PAST MEDICAL HISTORY Diagnosis Date - Abdominal pain, unspecified site - Adrenal nodule (HCC) unchanged after >2 years - Anxiety state, unspecified - Asthma childhood - CAD (coronary artery disease) - Chronic low back pain - Diaphragmatic hernia without mention of obstruction or gangrene - Diaphragmatic hernia without mention of obstruction or gangrene - Diverticulosis of colon (without mention of hemorrhage) - Esophageal reflux - Essential hypertension, benign 03/20/2012 - Fibromyalgia - Hemorrhoids - Hypogonadism male treated per urology - Impotence of organic origin - Lung nodule repeat ct in 01/02 - Palpitations - Personal history of colonic polyps 2004 polyps - Pulmonary embolism (HCC) completed treatment per pulm - Recurrent pneumonia 14 times Past Surgical History PAST SURGICAL HISTORY Procedure Laterality Date - COLONOSCOP W/ OR W/O [facility] SPEC 2004 Colonoscopy - COLONOSCOP W/ OR W/O [facility] SPEC 03/07/11 wnl - COLONOSCOPY N/A 07/20/2016 MAC - EGD N/A 07/20/2016 MAC - EGD W/O OR W/BRUSH/WASH 05/24/2011 EGD - HEMORRHOIDECTOMY, EXTNL; COMP 04/30/15 - LAP CHOLECYSTECT/CHOLANGIOGRAPHY 2004 [facility] [place] - Dr. Hernandes - PERCUTANEOUS CORONARY INTERVENTION stent to LAD - REMOVAL ADENOIDS,PRIMARY,<12 Y/O Adenoidectomy - REMOVAL OF TONSILS,<12 Y/O Tonsillectomy - REPAIR ROTATOR CUFF,ACUTE Rotator cuff repair Family History FAMILY HISTORY Problem Relation Age of Onset - Hypertension Mother - Heart Mother - Heart Father of [place] - Stroke Mother - Asthma Daughter - Allergies Mother - Allergies Father - Allergies Sister - Allergies Brother - Allergies Daughter REVIEW OF SYSTEMS: General: General: Well developed, well nourished. No acute distress HEENT: Negative for sore throat, difficulty swallowing. Negative for frequent or significant headaches, changes in vision or hearing. Cardiovascular: Positive: Hypertension and CAD, Stents Respiratory: Positive: DEENA on CPAP Gastrointestinal: No history of GERD, PUD, abd pain, difficulty swallowing, GI bleed. Renal: Negative for renal failure and No history of dialysis Musculoskeletal: Negative for joint pain or swelling, back pain or muscle pain. Skin: Negative for lesions, rash and itching. Psychological: No history of psychiatric symptoms or problems. Neurologic: No history of TIA's, stroke, TECHNOLOGY ANALYST tumor, impaired sensorium, hemiplegia, paraplegia or quadriplegia. No neurological symptoms or problems. Hematology/Oncology: No history of bleeding or clotting disorder. Pt is not taking anti-coagulation or platelet medications. No history of hematological symptoms or problems. Endocrine: No history of endocrinological symtoms or problems No history of DM; has not taken steroids w/in past 30 days. Negative for excessive sweating, thirst or hunger PHYSICAL EXAMINATION: General Appearance/ Constitutional: Well developed, well nourished, and in no apparent distress HEENT: Not examined Neck: Lymph Nodes: Not examined Cardiac: Normal Breast: Not examined Pulmonary: Ascultation: Normal Effort: Normal GI: Soft and Non-tender Peripheral Vascular: Not examined Extremities: Cyanosis absent and Edema absent Skin: Not examined Neurologic: Grossly non-focal and Alert and oriented (MALE): Penis: Normal without external lesions Testicles: bilaterally and normal Cord/Epididymis: bilaterally and normal Vas Deferens: bilaterally and normal Scrotum: Normal Prostate: About 35 gm, non tender, no nodules ADDITIONAL DATA REVIEWED: Most recent imaging Most recent labs Results for orders placed or performed in visit on 05/22/18 CBC + DIFF Result Value Ref Range WBC 5.73 3.70 - 11.00 k/uL RBC 6.35 (H) 4.20 - 6.00 m/uL Hemoglobin 17.8 (H) 13.0 - 17.0 g/dL Hematocrit 53.6 (H) 39.0 - 51.0 % MCV 84.4 80.0 - 100.0 fL MCH 28.0 26.0 - 34.0 pG MCHC 33.2 30.5 - 36.0 g/dL RDW-CV 13.1 11.5 - 15.0 % Platelet Count 144 (L) 150 - 400 k/uL MPV 11.8 9.0 - 12.7 fL Neut% 68.3 % Abs Neut (ANC) 3.91 1.45 - 7.50 k/uL Lymph% 20.4 % Abs Lymph 1.17 1.00 - 4.00 k/uL Harris% 9.6 % Abs Harris 0.55 <0.87 k/uL Eosin% 1.4 % Abs Eosin 0.08 <0.46 k/uL Baso% 0.3 % Abs Baso <0.03 <0.11 k/uL Nucleated Reds 0.0 0 /100 WBC Absolute nRBC <0.01 <0.01 k/uL Diff Type Auto Diff CARBOXYHEMOGLOBIN GOPI Result Value Ref Range Carboxyhemoglobin, Venous 1.3 <2.0 % PSA/PROSTSPECAG DIAG Result Value Ref Range PSA 3.19 (H) 0.00 - 2.59 ng/mL C-REACTIVE PROTEIN (CRP) Result Value Ref Range CRP 0.2 <0.9 mg/dL RADIOLOGY: N/A IMPRESSION / PLAN: > History of BPH w LUTS > Continue Proscar and flomax - refill give > Hx of ED - Pt has IPP -2015 > Hx of Low T > Currently on TRT IM Testosterone > Requires labs and closer follow up > > Elevated PSA > Most Likely due to being off the Proscar > Recheck PSA and Hormone Levels in 3 months I spent approximately 40 minutes in this visit, with more than 50% of the time devoted to patient discussion, counseling, review of records and/or coordination of care. Lenin Garcia, YAZMINS, MT, PA-C Referring Provider: JAGJIT CHEEMA [[id number]] Allergies As of Date: 06/15/2018 Noted Allergy Reaction SULFA (SULFONAMIDE ANTIBIOTICS) 03/10/2005 2 - Rash MOTRIN (IBUPROFEN) 03/20/2012 2 - Rash 9 - Itching Date Reviewed: 06/15/2018 Reviewed by: Lenin Garcia (Pa) - Fully Assessed Reason for Visit: New Patient [172] Cmt: elevated PSA Primary Visit Diagnosis:Elevated prostate specific antigen (PSA) [R97.20] Other Visit Diagnoses:Impotence of organic origin [N52.9] Low testosterone [E34.9] Order(s):UA DIP, URINE (POC) [7197163] Order #: [id number] UA DIP, URINE (POC) [[id number]] Order #: [id number]. #:[id number] TESTOSTERONE TOTAL [SQTESTO] Order #: [id number] FUTURE HEMATOCRIT (HCT) [SQHCT] Order #: [id number] FUTURE PROLACTIN BLD [SQPROL] Order #: [id number] FUTURE PSA/PROSTSPECAG DIAG [SQPSA] Order #: [id number] FUTURE finasteride (PROSCAR) 5 mg tabletTake 1 tablet by mouth once daily.Disp: 90 tabletRfl: 3 Prescriptions as of 06/15/2018 Sig: ALBUTEROL SULFATE HFA 90 MCG/* Inhale 2 Puffs as instructed * ALLOPURINOL 100 MG TABLET TAKE ONE TABLET BY MOUTH ONCE* AMLODIPINE 5 MG TABLET TAKE 1 TABLET BY MOUTH ONCE D* ASPIRIN 81 MG TABLET,DELAYED * Take 81 mg by mouth once darlene* CHOLECALCIFEROL (VITAMIN D3) * Take 1 capsule by mouth once * CYANOCOBALAMIN (VIT B-12) 1,0* Take 1,000 mcg by mouth once * DULOXETINE 30 MG CAPSULE,KELSI* Take 1 capsule by mouth once * ESOMEPRAZOLE MAGNESIUM 40 MG * TAKE ONE CAPSULE BY MOUTH ONC* GABAPENTIN 300 MG CAPSULE Take 1 capsule by mouth three* MELOXICAM 15 MG TABLET Take 1 tablet by mouth once d* MULTIVITAMIN TABLET Take one(1) tablet daily BY M* NEEDLE (DISP) 18 GAUGE X 1 1/* Uses 4 per month to draw up t* Patient taking differently: Inject 1 Each intramuscularly* POTASSIUM CHLORIDE ER 10 MEQ * Take 2 tablets by mouth once * SYRINGE WITH NEEDLE 3 ML 23 G* Uses 4 syringes per month wit* Patient taking differently: Inject 1 Each intramuscularly* TESTOSTERONE CYPIONATE 200 MG* INJECT 0.5 ML ONCE A WEEK ALBUTEROL SULFATE HFA 90 MCG/* Inhale 2 Puffs as instructed * FINASTERIDE 5 MG TABLET Take 1 tablet by mouth once d* Problem List As Of Date 06/15/2018 Noted Resolved Hyperlipidemia [E78.5] INVALID FOR* Palpitations [R00.2] INVALID FOR* Shortness of breath [R06.02] INVALID FOR* Diaphragmatic hernia without mention of obstruc*INVALID FOR* Esophageal reflux [K21.9] INVALID FOR* Asbestos exposure [Z77.090] INVALID FOR* Essential hypertension, benign [I10] INVALID FOR* Pulmonary embolism (HCC) [I26.99] INVALID FOR* Hyperhydrosis disorder [R61] INVALID FOR* Low testosterone [E34.9] INVALID FOR* CAD (coronary artery disease) s/p PTCA/STENT. *INVALID FOR* Sleep apnea [G47.30] INVALID FOR* Peyronie's disease [N48.6] INVALID FOR* Impotence of organic origin [N52.9] INVALID FOR* Asthma [J45.909] INVALID FOR* More... Adrenal nodule (HCC) [E27.9] INVALID FOR* More... Lung nodule [R91.1] INVALID FOR* More... Hypokalemia [E87.6] INVALID FOR* Polyarthritis [M13.0] INVALID FOR* Prescriptions ordered this encounter Disp Refills Start End FINASTERIDE 5 MG TABLET 90 t* 3 06/15/2018 Route: ORAL Sig: Take 1 tablet by mouth once daily. Medications Discontinued During This Encounter ciprofloxacin HCl (CIPRO) 500 mg tab* 20 t* 0 04/13/2018 06/15/2018 Route: ORAL Sig: Take 1 tablet by mouth twice daily. Patient not taking: Reported on 05/22/2018 Disc: Reason for discontinue is not on file. Disposition: Return in about 3 months (around 09/13/2018). Follow-up and Disposition History Recorded Questionnaire: AUA QUESTIONNAIRE TIMES IN THE PAST MONTH YOU HAD A FEELING OF NOT EMPTYING BLADDER? -> 0 TIMES IN PAST MONTH NEED TO URINATE AGAIN WITHIN 2 HRS OF LAST EMPTY? -> 5 TIMES IN PAST MONTH YOU HAVE STOPPED AND STARTED URINE FLOW? -> 0 TIMES IN THE PAST MONTH YOU FOUND IT DIFFICULT TO POSTPONE URINATING? -> 5 TIMES IN THE PAST MONTH YOU HAVE HAD A WEAK URINARY STREAM? -> 0 TIMES IN PAST MONTH YOU HAVE HAD TO PUSH OR STRAIN TO URINATE? -> 0 TIMES IN PAST MONTH YOU GET UP TO URINATE FROM SLEEP UNTIL AWAKE? -> 2 HOW WOULD YOU FEEL IF YOU HAD TO LIVE WITH YOUR URINARY CONDITION IT IS NOW? * WHAT IT THE TOTAL AUA SCORE? -> 16 Encounter Status:Closed by LENIN GARCIA PA-C on 06/15/18 CARDIOLOGY VISIT Observed: 05/31/2018 Status: F Source: STEPHANI REPORT 7:[address] [facility] REPOSITORY [facility] [address] [place] [address] OFFICE VISIT Date of Service: 05/30/18 MR#: [id number] Acct: [id number] Name: LAZARO GARZON Rep #: [id number] : 1955 Provider: NATALIA Gramajo Age/Sex: 62/M Location: [facility] Status: Signed HPI HPI Details: LAZARO GARZON, is a 62 M who presents to the office today for a cardiovascular outpatient follow-up. He is a history of coronary artery disease status post PCI to his LAD, pulmonary embolism after traveling, hypertension, hyperlipidemia, and DEENA with CPAP. He was admitted to [facility] in October 2017 for chest pain, fatigue, diaphoresis, and shortness of breath. He underwent a heart catheterization that showed patent previous placed stent and minimal coronary artery disease. He was ultimately discharged home. Since discharge, he contacted our office stating his blood pressure was elevated and that he increased his amlodipine. He presents today for further follow-up. Pt. denies chest, arm, jaw, or neck discomfort. His exercise tolerance is stable. Pt. denies symptoms of palpitations, near syncope, or syncopal episodes. Pt. denies edema issues. Pt. denies orthopnea, PND, fever, chills, blood in urine, blood in stool, or myalgia. He states his blood pressure was high at doctors office a few weeks ago and has remained elevated. He states SOB on exertion. He states bilateral groin/leg pain with ambulation. He is a previous smoker of 20 years off and of 1-2 pack/day along with chewing tobacco. He states feeling tired at all times. Intake Vital Signs05/30/18 Height 6 ft 5 in 05/30/18 Weight: 332 lb 05/30/18 Body Mass Index (BMI) 39.3 05/30/18 Blood Pressure 148/82 H 05/30/18 Blood Pressure Location Lt brachial Intake Visit Reasons: overdue for OV/elevated BP Limited Radiology Technician Required: No Is patient in pain?: No Allergies Sulfa (Sulfonamide Antibiotics) Allergy (Verified 05/30/18 15:19) Unknown ibuprofen [From Motrin] Adverse Reaction (Verified 05/30/18 15:19) Itching Medications Esomeprazole Mag Trihydrate [Nexium] 40 mg PO DAILY 10/03/13 [History Confirmed 10/30/17] Potassium Chloride [Klor-Con 10] 40 meq PO DAILY 10/03/13 [History Confirmed 10/30/17] Multivitamins,Ther W-Minerals [Multivitamin With Minerals] 1 tab PO DAILY 12/10/13 [History Confirmed 10/30/17] Nitroglycerin [Nitrostat] 0.4 mg SUBLINGUAL Q5M PRN 12/10/13 [History Confirmed 10/30/17] Testosterone Cypionate [Depo-Testosterone] 100 mg IM Q7D 12/10/13 [History Confirmed 10/30/17] Aspirin E.C. [Ecotrin] 81 mg PO DAILY@0800 08/17/16 [History Confirmed 10/30/17] Meloxicam [Mobic] 7.5 mg PO DAILY 08/17/16 [History Confirmed 10/30/17] amlodipine 10 mg tablet 10 mg PO QDAY 06/09/17 [History Confirmed 10/30/17] Duloxetine Hcl [Cymbalta] 30 mg PO DAILY 10/30/17 [History Confirmed 10/30/17] Gabapentin [Neurontin] 300 mg PO QHS 10/30/17 [History Confirmed 10/30/17] losartan 25 mg tablet 25 mg PO DAILY #90 tab 05/30/18 [Rx Confirmed 05/30/18] metoprolol tartrate 25 mg tablet 25 mg PO BID #180 tab 05/30/18 [Rx Confirmed 05/30/18] PFSH Medical History Essential hypertension (Chronic) Atherosclerotic heart disease of torres martinez coronary artery without angina pectoris (Chronic) Abnormal myocardial perfusion study (Chronic) H/O percutaneous transluminal coronary angioplasty (Chronic) HLD (hyperlipidemia) (Chronic) Abnormal stress test (Chronic) DEENA (obstructive sleep apnea) (Chronic) TIA (transient ischemic attack) (Acute) BPH (benign prostatic hyperplasia) (Chronic) Fibromyalgia (Chronic) GERD (gastroesophageal reflux disease) (Chronic) HTN (hypertension) (Inactive) Surgical History Presence of stent in coronary artery (Chronic 08/2012) History of PTCA (Chronic 08/2012) History of left heart catheterization (LHC) (Chronic) History of repair of rotator cuff (Resolved) History of tonsillectomy and adenoidectomy (Resolved) Family History Mother CAD (coronary artery disease) Hypertension Hx of CABG Father Hypertension Myocardial infarction Grandfather Myocardial infarction paternal Grandmother Cancer pancreatic CA Grandfather CAD (coronary artery disease) Social History Smoking Status: Former smoker how long ago did patient quit smokin alcohol intake: current alcohol intake frequency: holidays/special occasions only Alcohol type: beer substance use type: does not use caffeine: Yes what type of physical activity do you participate in: none ROS Const Const: Positive for fatigue; negative for body ache, fever(s), chills or weakness ENT ENT: Positive for dizziness (with quick position change) Cardio Chest Pain: No Palpitations: No Edema: None Muscle aches with walking: Bilateral Resp Respiratory: Positive for SOB with activity; negative for SOB at rest, SOB orthopnea\SOB lying down or paroxysmal nocturnal dyspnea GI GI: Negative nausea, black,tarry stools, bright, red blood in stools or vomiting blood/hematemesis : Negative for hematuria or frequent nighttime urination/ nocturia Musc Musc: Negative for muscle aches/ myalgia Skin Skin: Negative non-healing lesions or rash Neuro Neuro: Positive for dizziness (with quick position change) and lightheadedness (with quick position change); negative for weakness, near syncope, syncope or orthostatic symptoms Endo Endo: Positive for fatigue Allergy Allergy/Immunology: Negative for rash Cardiology Exam Const Appearance: cooperative, no acute distress and well developed Nutritional Appearance: obese Orientation: alert, awake and oriented x3 Head Head: normocephalic and atraumatic Mouth: moist mucous membranes Eyes General: appearance normal, both eyes and all related structures Conjunctivae: conjunctivae normal Pupils: PERRL EOM: EOM intact bilaterally Neck Neck: normal visual inspection, no lymphadenopathy and no JVD Carotids: Negative bruit Neck Mass: Negative Neck mass Chest Chest inspection: normal inspection of the chest, symmetric chest movement and normal respiratory effort Auscultation: Bilateral: Diminished Lung Sounds Cardio Palpation: normal PMI Rate: regular rate Rhythm: regular rhythm Heart sounds: S1 normal and S2 normal; negative rub, gallop or murmur GI GI: obese Neuro General: alert, awake, oriented x3, CN's II-XI intact bilaterally and moves all extremities Extremities Pulses: Normal: Right Radial Pulse, Left Radial Pulse, Diminished: Right Posterior Tibial Pulse, Left Posterior Tibial Pulse Lower Extremity Edema: None: Bilateral Psych Psychological: normal affect Assessment AND Plan 1. Atherosclerosis of torres martinez coronary artery of torres martinez heart without angina pectoris I25.10 Plan His heart catheterization from October 2017 showed ejection fraction of 60%, left main as angiographically normal, previous placed proximal LAD stent as patent, diagonal 1 with ostial 10-25% stenosis, LCx as angiographically normal, and RCA with 10-25% stenosis. Patient denies any chest pain, arm pain, jaw pain, or neck pain suggestive of angina at this time. We will continue to monitor this. We will not make any medication regimen changes and will continue risk factor modification. Orders Referrals: 2. Essential (primary) hypertension I10 Plan After further discussion patient did not initiate medications during his recent hospitalization in October 2017. He will start low-dose metoprolol and losartan. He will continue to monitor his blood pressure at home he was reminded that as new medications are added he may need to decrease his amlodipine back to 5 mg p.o. daily. At this time, however he will keep amlodipine 10 mg p.o. daily. He was asked to contact our office in approximately 2 weeks with an update on blood pressure and further medication titration if needed. 3. DEENA (obstructive sleep apnea) G47.33 Plan Patient states having obstructive sleep apnea with CPAP therapy. He does not have a weaving inspector. Because of this and ongoing fatigue, he was asked that he establish with a weaving inspector for further evaluation. A referral to Pulmonology [facility] was placed. 4. Claudication I73.9 Plan Patient states having ongoing bilateral lower leg pain with ambulation. He will be referred to vascular surgery for further evaluation and testing. Orders Referrals: 5. Obesity (BMI 35.0-39.9 without comorbidity) E66.9 Plan A referral to nutrition was placed. He was reminded of the importance of weight management in relation to chronic health conditions. Orders Referrals: 6. Dyspnea on exertion R06.09 Plan He continues to have ongoing shortness of breath on exertion. His heart catheterization in October 2017 showed ejection fraction of 60% and nonobstructive disease. He does have a previous history of tobacco abuse. He will also be referred to pulmonology of [place] for further evaluation of COPD or other pulmonary sources of his shortness of breath. We can consider further repeat echocardiogram and/or the addition of diuretic to help with diastolic component. We will consider this further after evaluation with pulmonology. Orders Referrals: Plan Detail Other Orders Referrals: Other Medications Refilled: Additional Comments Thank you for allowing us to participate in the patients plan of care, if you have any questions please do not hesitate to call. This note was generated using a voice recognition system and there may be incorrect words, spelling or punctuation that were not noted when reviewing the office note prior to saving. Follow Up 6 Months (YE[facility] STACKER/PA) 12 Months (PFM) Coding Level of Care Code Off vis,est,level 4 Diagnoses Atherosclerosis of torres martinez coronary artery of torres martinez heart without angina pectoris I25.10 Habematolel vs. transplanted heart: torres martinez heart Essential (primary) hypertension I10 DEENA (obstructive sleep apnea) G47.33 Claudication I73.9 Obesity (BMI 35.0-39.9 without comorbidity) E66.9 Dyspnea on exertion R06.09 Coding Level of Care Code Off vis,est,level 4 Diagnoses Atherosclerosis of torres martinez coronary artery of torres martinez heart without angina pectoris I25.10 Habematolel vs. transplanted heart: torres martinez heart Essential (primary) hypertension I10 DEENA (obstructive sleep apnea) G47.33 Claudication I73.9 Obesity (BMI 35.0-39.9 without comorbidity) E66.9 Dyspnea on exertion R06.09 05/31/18 0743 <Electronically signed by Hussein GUARDADOC> Date Hussein GUARDADOC Cosigner Signature: Date (if applicable) CC: Jagjit Cheema MD PROGRESS Observed: 05/22/2018 Status: COMPLETED Source: TEA 1:52 PM [facility] [place] REPOSITORY HNO ID: [id number] Author: Mallory Delatorre Service: (none) Author Type: (none) Type: Progress Notes Filed: 05/22/2018 1:52 PM Note Text: Radiology Service Progress Note PATIENT NAME: Lazaro SNIDERN: [id number] DATE OF SERVICE: May 22, 2018 TIME: 1:52 PM PATIENT IDENTITY VERIFICATION COMPLETED USING TWO (2) METHODS: Patient confirmed name verbally and Date of . PATIENT GENDER DATA: Male PATIENT RELEVANT IMPLANT DATA REVIEWED: Not Applicable RADIOLOGY DEPARTMENT: CT; Exam(s) Completed: Sinus PERIPHERAL IV DATA: Not applicable SIGNED BY: Mallory Barrera Ct May 22, 2018 1:[address] SINUS WO IVCON Observed: 05/22/2018 Status: F Source: TEA 1:50 PM [facility] REPOSITORY * * *Final Report* * * DATE OF EXAM: May 22 2018 1:50PM [facility] 0488 - CT SINUS WO IVCON / PROCEDURE REASON: multiple diagnoses * * * * Physician Interpretation * * * * EXAMINATION: CT SINUS WO IVCON CLINICAL HISTORY: Recurrent sinusitis TECHNIQUE: Spiral high resolution axial unenhanced CT images were obtained through the paranasal sinuses with sagittal, coronal reconstructions. MQ: CTSI_1 Dose-Length Product (DLP): 143 mGy*cm. CT Dose Reduction Employed: Automated exposure control(AEC) and iterative recon COMPARISON: None. RESULT: RESULT: Post-Surgical Findings: None Sinus Chambers: Lobulated polypoid mucosal thickening in the right maxillary sinus, which may reflect mucous retention cysts or polyps. Minimal mucosal thickening in the right frontal sinus and left inferior maxillary sinus. The remainder of the paranasal sinuses are otherwise clear. There is no bony destruction or dehiscence. Focal bony protuberance into the left lateral frontal sinus is compatible with a small osteoma measuring 6 mm without associated obstruction. Nasal Cavities: Visualized nasal cavities are patent. Developmental Anomalies: There is marked rightward deviation of the nasal septum with a bony spur that abuts the right middle and inferior turbinates and mildly narrows the right nasal cavity. There are is a right gabriel bullosa. Ostiomeatal Complex: Patent within the constraints of the study. Other: The visualized mastoid air cells and middle ear cavities are clear. The soft tissues of the face and orbits are within normal limits within the limitations of the study. IMPRESSION: Mucous retention cysts/polyps in the right maxillary sinus and minimal scattered inflammatory mucosal thickening. Otherwise, no significant paranasal sinus disease. Rightward deviation of the nasal septum which narrows the right nasal cavity. Canoe Builder: OSMANI Transcribe Date/Time: May 22 2018 3:15P Dictated by : LINDY PATEL MD This examination was interpreted and the report reviewed and electronically signed by: LINDY PATEL MD on May 22 2018 3:19PM EST [id number] CARBOXYHEMOGLOBIN,GOPI Collected: Status: F Source: TEA 05/22/2018 10:[address] [facility] REPOSITORY TYPE CODE TESTS RESULT OUT OF RANGE REFERENCE UNITS LAB CO <2.0 % 1.3 Carboxyhemog lobin,Gopi Performed By: #### CO, CBCDIF, CRP, PSA #### [facility] [address] [place] [id number] CBC AND DIFFERENTIAL Collected: 05/22/2018 Status: F Source: TEA 10:[address] [facility] REPOSITORY TYPE CODE TESTS RESULT OUT OF REFERENCE UNITS RANGE LAB WBC 3.70-11.00 k/uL WBC 5.73 LAB RBC 4.20-6.00 m/uL RBC High 6.35 LAB HGB 13.0-17.0 g/dL High Hemoglobin 17.8 LAB HCT 39.0-51.0 % High Hematocrit 53.6 LAB MCV 80.0-100.0 fL MCV 84.4 LAB MCH 26.0-34.0 pG MCH 28.0 LAB MCHC 30.5-36.0 g/dL MCHC 33.2 LAB RDWCV 11.5-15.0 % RDW-CV 13.1 LAB PLTCT 150-400 k/uL Low Platelet Count 144 LAB MPV 9.0-12.7 fL MPV 11.8 LAB ANEUT % Neut% 68.3 LAB AANEUT 1.45-7.50 k/uL Abs Neut 3.91 LAB ALYMP % Lymph% 20.4 LAB AALYMP 1.00-4.00 k/uL Abs Lymph 1.17 LAB AMONO % Harris% 9.6 LAB AAMONO <0.87 k/uL Abs Harris 0.55 LAB AEOS % Eosin% 1.4 LAB AAEOS <0.46 k/uL Abs Eosin 0.08 LAB ABASO % Baso% 0.3 LAB AABASO <0.11 k/uL Abs Baso <0.03 LAB AUNRBC 0 /100 WBC NRBCs 0.0 LAB ABNRBC <0.01 k/uL Absolute nRBC <0.01 LAB DTYP DTYPE Auto Diff Performed By: #### CO, CBCDIF, CRP, PSA #### [facility] [address] [place], [place] [address] C-REACTIVE PROTEIN Collected: 05/22/2018 Status: F Source: TEA 10:[address] [facility] REPOSITORY TYPE CODE TESTS RESULT OUT OF REFERENCE UNITS RANGE LAB CRP <0.9 mg/dL C-Reactive 0.2 Protein Performed By: #### CO, CBCDIF, CRP, PSA #### [facility] [address], [place] [id number] PSA, DIAGNOSTIC Collected: 05/22/2018 Status: F Source: TEA 10:[address] [facility] REPOSITORY TYPE CODE TESTS RESULT OUT OF REFERENCE UNITS RANGE LAB PSA 0.00-2.59 ng/mL PSA, High Diagnostic 3.19 Result Comment: Total PSA test methodology used is the Electrochemiluminescence Immunoassay. The presence of an abnormal result flag in this range (2.6 to 4.0 ng/mL) should not necessarily be an automatic indicator for prostate biopsy. For an individual patient, the significance of a PSA level should be interpreted in a broad clinical context, including age, race, family history, digital rectal exam, prostate size, results of prior te sting (prostate biopsy, free PSA, PCA3), and use of 5-alpha reductase inhibitors. Considering the high incidence of asymptomatic cancer in the general population that may not pose an ultimate risk to a patient, the decision to recommend urological evaluation or prostate biopsy should be individualized after consideration of all these factors. REFERENCE: Barby Lamb M.D., M.P.H., Francisco Javier Villalobos M.D., Ph.D., Jagjit Montoya M.D., Mallory Alves, M.P.H., Juliane Robins, ScIrvin. Effect of Verification Bias on Screening for Prostate Cancer by Measurement of Prostatic Specific Antigen. N Engl J Med 2003,349:335-42. Performed By: #### CO, CBCDIF, CRP, PSA #### [facility] [address] [facility], [place] [address] PROGRESS Observed: 05/22/2018 Status: COMPLETED Source: TEA 9:32 AM [facility] REPOSITORY HNO ID: [id number] Author: Sincere Tran (PaGinaC) Abhilash Service: (none) Author Type: Physician Judicial Reporter Type: Progress Notes Filed: 05/22/2018 4:39 PM Note Text: 62 year old male with c/o persistent occipital headache radiating behind eyes, difficulty breathing, bloody drainage from nose. Gets tight in chest at times. Feels like can't get enough air/ tight feeling. Some wheezing. Hx asthma. Needs refill on inhaler. No fever, chills. Some post-nasal drainage. Feels worn out. [place] good yesterday. Also asking for refill Mobic. Helps with joint pain. HISTORIES FAMILY HISTORY Problem Relation Age of Onset - Hypertension Mother - Heart Mother - Heart Father of [place] - Stroke Mother - Asthma Daughter - Allergies Mother - Allergies Father - Allergies Sister - Allergies Brother - Allergies Daughter PAST MEDICAL HISTORY Diagnosis Date - Abdominal pain, unspecified site - Adrenal nodule (HCC) unchanged after >2 years - Anxiety state, unspecified - Asthma childhood - CAD (coronary artery disease) - Chronic low back pain - Diaphragmatic hernia without mention of obstruction or gangrene - Diaphragmatic hernia without mention of obstruction or gangrene - Diverticulosis of colon (without mention of hemorrhage) - Esophageal reflux - Essential hypertension, benign 03/20/2012 - Fibromyalgia - Hemorrhoids - Hypogonadism male treated per urology - Impotence of organic origin - Lung nodule repeat ct in 01/02 - Palpitations - Personal history of colonic polyps 2004 polyps - Pulmonary embolism (HCC) completed treatment per pulm - Recurrent pneumonia 14 times PAST SURGICAL HISTORY Procedure Laterality Date - COLONOSCOP W/ OR W/O [facility] SPEC 2004 Colonoscopy - COLONOSCOP W/ OR W/O [facility]SH SPEC 03/07/11 wnl - COLONOSCOPY N/A 07/20/2016 MAC - EGD N/A 07/20/2016 MAC - EGD W/O OR W/BRUSH/WASH 05/24/2011 EGD - HEMORRHOIDECTOMY, EXTNL; COMP 04/30/15 - LAP CHOLECYSTECT/CHOLANGIOGRAPHY 2004 [facility] [place] - Dr. 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 Social History Main Topics Smoking status: Former Smoker Packs/day: 2.00 Years: 5.00 Types: Cigarettes Quit date: 02/08/1987 Smokeless tobacco: Current User Types: Chew Comment: patient smoked for a few months in 2006 Alcohol use: Yes 18.0 oz/week Comment: rare Drug use: No Comment: marijuana in past not since 20 y/o ACTIVE PROBLEM LIST Hyperlipidemia Palpitations Shortness of Breath Diaphragmatic Hernia Without Mention of Obstruction Or Gangrene Esophageal Reflux Asbestos Exposure Essential Hypertension, Benign Pulmonary Embolism (Hcc) Hyperhydrosis Disorder Low Testosterone CAD (coronary artery disease) s/p PTCA/STENT. Sleep Apnea Peyronie's Disease Impotence of Organic Origin Asthma Adrenal Nodule (Hcc) Lung Nodule Hypokalemia Polyarthritis Current Outpatient Prescriptions: meloxicam (MOBIC) 15 mg tablet Take 1 tablet by mouth once daily. With food. Disp: 90 tablet Rfl: 1 Cholecalciferol, Vitamin D3, (VITAMIN D) 1,000 unit cap Take 1 capsule by mouth once daily. Disp: 90 capsule Rfl: 3 DULoxetine (CYMBALTA) 30 mg capsule Take 1 capsule by mouth once daily. Disp: 30 capsule Rfl: 2 gabapentin (NEURONTIN) 300 mg capsule Take 1 capsule by mouth three times daily. Disp: 90 capsule Rfl: 11 potassium chloride (K-TAB) 10 mEq tablet Take 2 tablets by mouth once daily. Disp: 180 tablet Rfl: 3 amLODIPine (NORVASC) 5 mg tablet TAKE 1 TABLET BY MOUTH ONCE DAILY Disp: 90 tablet Rfl: 3 allopurinol (ZYLOPRIM) 100 mg tablet TAKE ONE TABLET BY MOUTH ONCE DAILY FOR GOUT Disp: 90 tablet Rfl: 3 testosterone cypionate (DEPO-TESTOSTERONE) 200 mg/mL injection INJECT 0.5 ML ONCE A WEEK Disp: 10 mL Rfl: 0 esomeprazole (NEXIUM) 40 mg capsule TAKE ONE CAPSULE BY MOUTH ONCE DAILY Disp: 90 capsule Rfl: 3 albuterol HFA (PROAIR HFA) 90 mcg/actuation inhaler Inhale 2 Puffs as instructed every 4 hours as needed (FOR COUGH OR WHEEZE). Disp: 1 Inhaler Rfl: 2 cyanocobalamin (VITAMIN B-12) 1,000 mcg tab Take 1,000 mcg by mouth once daily. Disp: Rfl: Syringe with Needle, Disp, (BD LUER-YOHANA SYRINGE) 3 mL 23 x 1 1/2 syrg Uses 4 syringes per month with testosterone injections (Patient taking differently: Inject 1 Each intramuscularly once each week. Uses 4 syringes per month with testosterone injections) Disp: 12 Syringe Rfl: 3 Needle, Disp, 18 G (BD NOKOR ADMIX NEEDLE) 18 x 1 1/2 ndle Uses 4 per month to draw up testosterone from vial (Patient taking differently: Inject 1 Each intramuscularly once each week. Uses 4 per month to draw up testosterone from vial) Disp: 12 Each Rfl: 3 MULTIVITAMIN TAB Take one(1) tablet daily BY MOUTH. Disp: Rfl: 0 albuterol HFA (PROAIR HFA) 90 mcg/actuation inhaler Inhale 2 Puffs as instructed every 4 hours as needed (FOR COUGH OR WHEEZE). Disp: 1 Inhaler Rfl: 3 ciprofloxacin HCl (CIPRO) 500 mg tablet Take 1 tablet by mouth twice daily. (Patient not taking: Reported on 05/22/2018 ) Disp: 20 tablet Rfl: 0 No current facility-administered medications for this visit. BP CONTROLLED (<130/80) due on 09/22/1975 DTAP,TDAP,TD(1 - Tdap) due on 1976 HEPATITIS C SCREENING due on 2001 INFLUENZA(1) due on 02/17/2018 EXAM: BP 152/90 (BP Site: Right Arm, BP Position: Sitting, BP Cuff Size: Large Adult) Pulse 74 Temp 36.3 ?C (97.4 ?F) (Tympanic) Wt (!) 151 kg (333 lb) SpO2 96% BMI 39.49 kg/m? Pleasant overweight adult male in no acute distress. Alert and oriented all spheres. Normal affect and cognition. Speech normal. No deficits to learning or comprehension. Skin warm, dry, pink to lips and nailbeds. Normal turgor. Respirations regular and unlabored. HEENT WNL. TM's clear. Nose with mild crusting bilateral septum. No obstructions. Oropharynx free from injection or lesion. No cervical lymph nodes. Thyroid non-tender, no masses. Neck is supple with FROM, non-tender. Chest CTA. HRRR without murmur or gallop. Extrem: no clubbing, cyanosis, edema. Extremities are warm and pink with prompt capillary refill. ASSESSMENT/PLAN: 1. Mild intermittent asthma with acute exacerbation - ICD9: 493.92, ICD10: J45.21 (primary diagnosis) Mild intermittent Asthma stable - Albuterol MDI 2 puffs with spacer prn - Avoidance of triggers recommended 2. Polyarthritis - ICD9: 716.50, ICD10: M13.0 - MELOXICAM 15 MG TABLET - C-REACTIVE PROTEIN (CRP) 3. Recurrent sinusitis - ICD9: 473.9, ICD10: J32.9 - Supportive care with plenty of fluids, rest, and analgesia prn. - CT SINUS WO IVCON - C-REACTIVE PROTEIN (CRP) 4. Nasal mucositis (ulcerative) - ICD9: 478.11, ICD10: J34.81 - CT SINUS WO IVCON 5. BPH with obstruction/lower urinary tract symptoms - ICD9: 600.01, 599.69, ICD10: N40.1, N13.8 - PSA/PROSTSPECAG RED Hung PA-C CNOV Observed: 05/22/2018 Status: COMPLETED Source: TEA 9:[address] [facility] REPOSITORY Office Visit (FAMPWS) LAZARO GARZON ([id number]) 1955 Sincere Date Time Provider Department 05/22/18 9:20 AM Sincere HUNG) FAMBRITTANY During your visit today, we recorded the following information about you: Temperature Pulse Blood pressure Weight 97.4 degrees 74/minute 152/90 151 kg M Marc Hung PA-C 05/22/2018 4:39 PM Signed 62 year old male with c/o persistent occipital headache radiating behind eyes, difficulty breathing, bloody drainage from nose. Gets tight in chest at times. Feels like can't get enough air/ tight feeling. Some wheezing. Hx asthma. Needs refill on inhaler. No fever, chills. Some post-nasal drainage. Feels worn out. [place] good yesterday. Also asking for refill Mobic. Helps with joint pain. HISTORIES FAMILY HISTORY Problem Relation Age of Onset - Hypertension Mother - Heart Mother - Heart Father of [place] - Stroke Mother - Asthma Daughter - Allergies Mother - Allergies Father - Allergies Sister - Allergies Brother - Allergies Daughter PAST MEDICAL HISTORY Diagnosis Date - Abdominal pain, unspecified site - Adrenal nodule (HCC) unchanged after >2 years - Anxiety state, unspecified - Asthma childhood - CAD (coronary artery disease) - Chronic low back pain - Diaphragmatic hernia without mention of obstruction or gangrene - Diaphragmatic hernia without mention of obstruction or gangrene - Diverticulosis of colon (without mention of hemorrhage) - Esophageal reflux - Essential hypertension, benign 03/20/2012 - Fibromyalgia - Hemorrhoids - Hypogonadism male treated per urology - Impotence of organic origin - Lung nodule repeat ct in 01/02 - Palpitations - Personal history of colonic polyps 2004 polyps - Pulmonary embolism (HCC) completed treatment per pulm - Recurrent pneumonia 14 times PAST SURGICAL HISTORY Procedure Laterality Date - COLONOSCOP W/ OR W/O [facility] SPEC 2004 Colonoscopy - COLONOSCOP W/ OR W/O [facility] SPEC 03/07/11 wnl - COLONOSCOPY N/A 07/20/2016 MAC - EGD N/A 07/20/2016 MAC - EGD W/O OR W/BRUSH/WASH 05/24/2011 EGD - HEMORRHOIDECTOMY, EXTNL; COMP 04/30/15 - LAP CHOLECYSTECT/CHOLANGIOGRAPHY 2004 [facility] [place] - Dr. 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 Social History Main Topics Smoking status: Former Smoker Packs/day: 2.00 Years: 5.00 Types: Cigarettes Quit date: 02/08/1987 Smokeless tobacco: Current User Types: Chew Comment: patient smoked for a few months in 2006 Alcohol use: Yes 18.0 oz/week Comment: rare Drug use: No Comment: marijuana in past not since 20 y/o ACTIVE PROBLEM LIST Hyperlipidemia Palpitations Shortness of Breath Diaphragmatic Hernia Without Mention of Obstruction Or Gangrene Esophageal Reflux Asbestos Exposure Essential Hypertension, Benign Pulmonary Embolism (Hcc) Hyperhydrosis Disorder Low Testosterone CAD (coronary artery disease) s/p PTCA/STENT. Sleep Apnea Peyronie's Disease Impotence of Organic Origin Asthma Adrenal Nodule (Hcc) Lung Nodule Hypokalemia Polyarthritis Current Outpatient Prescriptions: meloxicam (MOBIC) 15 mg tablet Take 1 tablet by mouth once daily. With food. Disp: 90 tablet Rfl: 1 Cholecalciferol, Vitamin D3, (VITAMIN D) 1,000 unit cap Take 1 capsule by mouth once daily. Disp: 90 capsule Rfl: 3 DULoxetine (CYMBALTA) 30 mg capsule Take 1 capsule by mouth once daily. Disp: 30 capsule Rfl: 2 gabapentin (NEURONTIN) 300 mg capsule Take 1 capsule by mouth three times daily. Disp: 90 capsule Rfl: 11 potassium chloride (K-TAB) 10 mEq tablet Take 2 tablets by mouth once daily. Disp: 180 tablet Rfl: 3 amLODIPine (NORVASC) 5 mg tablet TAKE 1 TABLET BY MOUTH ONCE DAILY Disp: 90 tablet Rfl: 3 allopurinol (ZYLOPRIM) 100 mg tablet TAKE ONE TABLET BY MOUTH ONCE DAILY FOR GOUT Disp: 90 tablet Rfl: 3 testosterone cypionate (DEPO-TESTOSTERONE) 200 mg/mL injection INJECT 0.5 ML ONCE A WEEK Disp: 10 mL Rfl: 0 esomeprazole (NEXIUM) 40 mg capsule TAKE ONE CAPSULE BY MOUTH ONCE DAILY Disp: 90 capsule Rfl: 3 albuterol HFA (PROAIR HFA) 90 mcg/actuation inhaler Inhale 2 Puffs as instructed every 4 hours as needed (FOR COUGH OR WHEEZE). Disp: 1 Inhaler Rfl: 2 cyanocobalamin (VITAMIN B-12) 1,000 mcg tab Take 1,000 mcg by mouth once daily. Disp: Rfl: Syringe with Needle, Disp, (BD LUER-YOHANA SYRINGE) 3 mL 23 x 1 1/2 syrg Uses 4 syringes per month with testosterone injections (Patient taking differently: Inject 1 Each intramuscularly once each week. Uses 4 syringes per month with testosterone injections) Disp: 12 Syringe Rfl: 3 Needle, Disp, 18 G (BD NOKOR ADMIX NEEDLE) 18 x 1 /2 ndle Uses 4 per month to draw up testosterone from vial (Patient taking differently: Inject 1 Each intramuscularly once each week. Uses 4 per month to draw up testosterone from vial) Disp: 12 Each Rfl: 3 MULTIVITAMIN TAB Take one(1) tablet daily BY MOUTH. Disp: Rfl: 0 albuterol HFA (PROAIR HFA) 90 mcg/actuation inhaler Inhale 2 Puffs as instructed every 4 hours as needed (FOR COUGH OR WHEEZE). Disp: 1 Inhaler Rfl: 3 ciprofloxacin HCl (CIPRO) 500 mg tablet Take 1 tablet by mouth twice daily. (Patient not taking: Reported on 05/22/2018 ) Disp: 20 tablet Rfl: 0 No current facility-administered medications for this visit. BP CONTROLLED (<130/80) due on 09/22/1975 DTAP,TDAP,TD(1 - Tdap) due on 1976 HEPATITIS C SCREENING due on 2001 INFLUENZA(1) due on 02/17/2018 EXAM: BP 152/90 (BP Site: Right Arm, BP Position: Sitting, BP Cuff Size: Large Adult) Pulse 74 Temp 36.3 ?C (97.4 ?F) (Tympanic) Wt (!) 151 kg (333 lb) SpO2 96% BMI 39.49 kg/m? Pleasant overweight adult male in no acute distress. Alert and oriented all spheres. Normal affect and cognition. Speech normal. No deficits to learning or comprehension. Skin warm, dry, pink to lips and nailbeds. Normal turgor. Respirations regular and unlabored. HEENT WNL. TM's clear. Nose with mild crusting bilateral septum. No obstructions. Oropharynx free from injection or lesion. No cervical lymph nodes. Thyroid non-tender, no masses. Neck is supple with FROM, non-tender. Chest CTA. HRRR without murmur or gallop. Extrem: no clubbing, cyanosis, edema. Extremities are warm and pink with prompt capillary refill. ASSESSMENT/PLAN: 1. Mild intermittent asthma with acute exacerbation - ICD9: 493.92, ICD10: J45.21 (primary diagnosis) Mild intermittent Asthma stable - Albuterol MDI 2 puffs with spacer prn - Avoidance of triggers recommended 2. Polyarthritis - ICD9: 716.50, ICD10: M13.0 - MELOXICAM 15 MG TABLET - C-REACTIVE PROTEIN (CRP) 3. Recurrent sinusitis - ICD9: 473.9, ICD10: J32.9 - Supportive care with plenty of fluids, rest, and analgesia prn. - CT SINUS WO IVCON - C-REACTIVE PROTEIN (CRP) 4. Nasal mucositis (ulcerative) - ICD9: 478.11, ICD10: J34.81 - CT SINUS WO IVCON 5. BPH with obstruction/lower urinary tract symptoms - ICD9: 600.01, 599.69, ICD10: N40.1, N13.8 - PSA/PROSTSPECAG RED Hung PA-C Referring Provider: SELF [200] Allergies As of Date: 05/22/2018 Noted Allergy Reaction SULFA (SULFONAMIDE ANTIBIOTICS) 03/10/2005 2 - Rash MOTRIN (IBUPROFEN) 03/20/2012 2 - Rash 9 - Itching Date Reviewed: 05/22/2018 Reviewed by: Gianna Tamayo - Fully Assessed Reason for Visit: Sinus Infection,frequent/recurring [1167] Chest Congestion [236] Cough [28] Cmt: non productive Refill Request [508] Cmt: pt. requesting meloxicam 90 day supply sent to [facility] home delivery Refill Request [508] Cmt: pt. requesting refill sent to [facility] Reason For Visit History Recorded Primary Visit Diagnosis:Mild intermittent asthma with acute exacerbation [J45.21] Other Visit Diagnoses:Polyarthritis [M13.0] Recurrent sinusitis [J32.9] Nasal mucositis (ulcerative) [J34.81] BPH with obstruction/lower urinary tract symptoms [N40.1, N13.8] Order(s):meloxicam (MOBIC) 15 mg tabletTake 1 tablet by mouth once daily. With food.Disp: 90 tabletRfl: 1 albuterol HFA (PROAIR HFA) 90 mcg/actuation inhalerInhale 2 Puffs as instructed every 4 hours as needed (FOR COUGH OR WHEEZE).Disp: 1 InhalerRfl: 3 CT SINUS WO IVCON [[id number]] Order #: [id number] FUTURE PSA/PROSTSPECAG DIAG [SQPSA] Order #: [id number] FUTURE C-REACTIVE PROTEIN (CRP) [SQCRP] Order #: [id number] FUTURE Prescriptions as of 05/22/2018 Sig: MELOXICAM 15 MG TABLET Take 1 tablet by mouth once d* CHOLECALCIFEROL (VITAMIN D3) * Take 1 capsule by mouth once * DULOXETINE 30 MG CAPSULE,KELSI* Take 1 capsule by mouth once * GABAPENTIN 300 MG CAPSULE Take 1 capsule by mouth three* POTASSIUM CHLORIDE ER 10 MEQ * Take 2 tablets by mouth once * AMLODIPINE 5 MG TABLET TAKE 1 TABLET BY MOUTH ONCE D* ALLOPURINOL 100 MG TABLET TAKE ONE TABLET BY MOUTH ONCE* TESTOSTERONE CYPIONATE 200 MG* INJECT 0.5 ML ONCE A WEEK ESOMEPRAZOLE MAGNESIUM 40 MG * TAKE ONE CAPSULE BY MOUTH ONC* ALBUTEROL SULFATE HFA 90 MCG/* Inhale 2 Puffs as instructed * CYANOCOBALAMIN (VIT B-12) 1,0* Take 1,000 mcg by mouth once * SYRINGE WITH NEEDLE 3 ML 23 G* Uses 4 syringes per month wit* Patient taking differently: Inject 1 Each intramuscularly* NEEDLE (DISP) 18 GAUGE X 1 1/* Uses 4 per month to draw up t* Patient taking differently: Inject 1 Each intramuscularly* MULTIVITAMIN TABLET Take one(1) tablet daily BY M* ALBUTEROL SULFATE HFA 90 MCG/* Inhale 2 Puffs as instructed * CIPROFLOXACIN 500 MG TABLET Take 1 tablet by mouth twice * Patient not taking: Reported on 05/22/2018 Problem List As Of Date 05/22/2018 Noted Resolved Hyperlipidemia [E78.5] INVALID FOR* Palpitations [R00.2] INVALID FOR* Shortness of breath [R06.02] INVALID FOR* Diaphragmatic hernia without mention of obstruc*INVALID FOR* Esophageal reflux [K21.9] INVALID FOR* Asbestos exposure [Z77.090] INVALID FOR* Essential hypertension, benign [I10] INVALID FOR* Pulmonary embolism (HCC) [I26.99] INVALID FOR* Hyperhydrosis disorder [R61] INVALID FOR* Low testosterone [E34.9] INVALID FOR* CAD (coronary artery disease) s/p PTCA/STENT. *INVALID FOR* Sleep apnea [G47.30] INVALID FOR* Peyronie's disease [N48.6] INVALID FOR* Impotence of organic origin [N52.9] INVALID FOR* Asthma [J45.909] INVALID FOR* More... Adrenal nodule (HCC) [E27.9] INVALID FOR* More... Lung nodule [R91.1] INVALID FOR* More... Hypokalemia [E87.6] INVALID FOR* Polyarthritis [M13.0] INVALID FOR* Prescriptions ordered this encounter Disp Refills Start End MELOXICAM 15 MG TABLET 90 t* 1 05/22/2018 Route: ORAL Sig: Take 1 tablet by mouth once daily. With food. ALBUTEROL SULFATE HFA 90 MCG/ACTUATI* 1 In* 3 05/22/2018 Route: INHALATION Sig: Inhale 2 Puffs as instructed every 4 hours as needed (FOR COUGH OR WHEEZE). Medications Discontinued During This Encounter aspirin, enteric coated (ECOTRIN LOW* 0 04/19/2011 05/22/2018 Class: Med Update Route: ORAL Sig: Take 1 tablet by mouth once daily. Disc: Course of therapy completed meloxicam (MOBIC) 15 mg tablet 30 t* 2 03/12/2018 05/22/2018 Cmt: Please consider 90 day supplies to promote better adherence Route: ORAL Sig: TAKE 1 TABLET BY MOUTH ONCE DAILY WITH FOOD Disc: Reason for discontinue is not on file. Follow-up and Disposition History Recorded Encounter Status:Closed by Sincere HUNG PA-C on 05/22/[address] Collected: 04/19/2018 Status: F Source: TEA 8:53 AM [facility] REPOSITORY TYPE CODE TESTS RESULT OUT OF REFERENCE UNITS RANGE LAB EPINEP 10-200 pg/mL Epinephrine 27 LAB NOREPI 80-520 pg/mL Norepinephrine 218 LAB DOPA 0-20 pg/mL Dopamine <20 LAB INTCAT Catecholamine Interp SEE NOTE Result Comment: (NOTE) INTERPRETIVE INFORMATION: Catecholamines Panel, Plasma Small increases in catecholamines (less than 2 times the upper reference limit) usually are the result of physiological stimuli, drugs, or improper specimen collection. Significant elevation of one or more catecholamines (2 or more times the upper reference limit) is associated with an increased probability of a neuroendocrine tumor. Measurement of plasma or urine fractionated metanephrines provides better diagnostic sensitivity than measurement of catecholamines. Higher catecholamine concentrations are observed in specimens collected from upright or standing adults. Epinephrine may be increased by approximately 20 percent; norepinephrine up to 700 pg/mL; dopamine, unchanged. Performed by [facility], [address] [place] [address] [email or web address], Camden Schroeder MD, Lab. Director Performed By: #### PLCAT #### [facility] [address] [place] [address] [phone] CBC AND DIFFERENTIAL Collected: 04/19/2018 Status: F Source: TEA 8:52 AM [facility] REPOSITORY TYPE CODE TESTS RESULT OUT OF REFERENCE UNITS RANGE LAB WBC 3.70-11.00 k/uL WBC 4.79 LAB RBC 4.20-6.00 m/uL RBC 5.94 LAB HGB 13.0-17.0 g/dL High Hemoglobin 17.1 LAB HCT 39.0-51.0 % Hematocrit 50.7 LAB MCV 80.0-100.0 fL MCV 85.4 LAB MCH 26.0-34.0 pG MCH 28.8 LAB MCHC 30.5-36.0 g/dL MCHC 33.7 LAB RDWCV 11.5-15.0 % RDW-CV 12.7 LAB PLTCT 150-400 k/uL Low Platelet Count 129 LAB MPV 9.0-12.7 fL MPV 12.0 LAB ANEUT % Neut% 68.4 LAB AANEUT 1.45-7.50 k/uL Abs Neut 3.28 LAB ALYMP % Lymph% 20.9 LAB AALYMP 1.00-4.00 k/uL Abs Lymph 1.00 LAB AMONO % Harris% 8.8 LAB AAMONO <0.87 k/uL Abs Harris 0.42 LAB AEOS % Eosin% 1.5 LAB AAEOS <0.46 k/uL Abs Eosin 0.07 LAB ABASO % Baso% 0.4 LAB AABASO <0.11 k/uL Abs Baso <0.03 LAB AUNRBC 0 /100 WBC NRBCs 0.0 LAB ABNRBC <0.01 k/uL Absolute nRBC <0.01 LAB DTYP DTYPE Auto Diff Performed By: #### CBCDIF, CMP, LIPB, RENIND, PATRIZIA, ACTH #### [facility] [address] [place], [place] [address] COMP METABOLIC PANEL Collected: 04/19/2018 Status: F Source: TEA 8:52 AM [facility] REPOSITORY TYPE CODE TESTS RESULT OUT OF REFERENCE UNITS RANGE LAB TP 6.3-8.0 g/dL Protein, Total 6.5 LAB ALB 3.9-4.9 g/dL Albumin 4.2 LAB CA 8.5-10.2 mg/dL Calcium, Total 8.8 LAB TBIL 0.2-1.3 mg/dL Bilirubin, Total 0.7 LAB ALKP 38-113 U/L Alkaline Phosphatase 63 LAB AST 14-40 U/L AST 21 LAB GLU 74-99 mg/dL Glucose High 108 Result Comment: The [place] Diabetes Association (ADA) provides guidance for cutoff values for fasting glucose and random glucose. The ADA defines fasting as no caloric intake for at least 8 hours. Fas ting plasma glucose results between 100 to 125 mg/dL indicate increased risk for diabetes (prediabetes). Fasting plasma glucose results greater than or equal to 126 mg/dL meet the criteria for diagnosis of diabetes. In the absence of unequivocal hyperglycemia, results should be confirmed by repeat testing. In a patient with classic symptoms of hyperglycemia or hyperglycemic crisis, random plasma glucose results greater than or equal to 200 mg/dL meet the criteria for diagnosis of diabetes. Reference: Standards of Medical Care in Diabetes 2016, [place] Diabetes Association. Diabetes Care. 2016.39(Suppl 1). LAB BUN 9-24 mg/dL BUN 14 LAB CRET 0.73-1.22 mg/dL Creatinine 1.03 LAB NA 136-144 mmol/L Sodium 139 LAB K 3.7-5.1 mmol/L Potassium 3.9 LAB CL 97-105 mmol/L Chloride 103 LAB CO2 22-30 mmol/L CO2 Low 21 LAB AGAP 9-18 mmol/L Anion Gap 15 LAB ALT 10-54 U/L ALT 23 LAB GFRAA eGFR- Amer. >60 LAB GFRNAA . eGFR-All Other Races >60 Result Comment: eGFR (Estimated GFR) Units of measure: mL/min/1.73 meters squared eGFR is derived from the reexpressed MDRD Study equation using the following parameters: serum creatinine, age, gender and race. The creatinine assay has been calibrated to be traceable to IDMS. An eGFR <60 mL/min/1.73m2 for >3 months is consistent with chronic kidney disease. Refer to KDOQI guidelines for clinical interpretation. In patients with unstable renal function, e.g. those with acute kidney injury, the eGFR may not accurately reflect actual GFR. Performed By: #### CBCDIF, CMP, LIPB, RENIND, PATRIZIA, ACTH #### [facility] [address] [place], [place] [address] LIPID PANEL, BASIC Collected: 04/19/2018 Status: F Source: TEA 8:52 AM [facility] REPOSITORY TYPE CODE TESTS RESULT OUT OF REFERENCE UNITS RANGE LAB CHOL <200 mg/dL Cholesterol 122 Result Comment: <200 mg/dL, Desirable 200-239 mg/dL, Borderline high >239 mg/dL, High LAB TRIGLY <150 mg/dL Triglyceride High 240 Result Comment: <150 mg/dL, Normal 150-199 mg/dL, Borderline high 200-499 mg/dL, High >499 mg/dL, Very high LAB HDL >39 mg/dL HDL-Cholesterol Low 24 Result Comment: 40-59 mg/dL, Acceptable >59 mg/dL, High: Negative risk factor for coronary heart disease <40 mg/dL, Low: Positive risk factor for coronary heart disease LAB LDL <100 mg/dL LDL-Cholesterol 50 Result Comment: <100 mg/dL, Optimal 100-129 mg/dL, Near optimal/above optimal 130-159 mg/dL, Borderline high 160-189 mg/dL, High >189 mg/dL, Very high Secondary prevention optimal LDL Cholesterol levels are recommended to be < 70 mg/dL LAB NONHDL <130 mg/dL Non HDL Cholesterol 98 Result Comment: <130 mg/dL, Optimal 130-159 mg/dL, Near optimal/above optimal 160-189 mg/dL, Borderline high 190-219 mg/dL, High >219 mg/dL, Very high Secondary prevention optimal non HDL Cholesterol levels are recommended to be < 100 mg/dL LAB FT hrs Fasting Time 12 LAB VLDL <30 mg/dL High VLDL Cholesterol 48 LAB TCHDL <5.10 TC:HDL Ratio 5.08 LAB LDLHDL <2.54 LDL:HDL Ratio 2.08 Result Comment: Reference: 1. National Cholesterol Education Program ATP III Guideline At-A-Glance Quick Desk Reference: National Heart, Lung, and Blood [place]. National Institutes of Health. 2001: NIH Publication No. 01-3305. 2. An International Atherosclerosis Society position paper: global recommendations for the management of dyslipidemia: executive summary, Atherosclerosis. 2014: 232(2):410-413. Performed By: #### CBCDIF, CMP, LIPB, RENIND, PATRIZIA, ACTH #### [facility] [address] [place], [place] [address] DIRECT RENIN Collected: 04/19/2018 Status: F Source: TEA 8:[address] [facility] REPOSITORY TYPE CODE TESTS RESULT OUT OF REFERENCE UNITS RANGE LAB RENDI pg/mL Direct Renin 4.5 Result Comment: Renin Reference Range, 41-99 years: Upright: 3.6-81.6 pg/mL Supine: 2.5-45.1 pg/mL Performed By: #### CBCDIF, CMP, LIPB, RENIND, PATRIZIA, ACTH #### [facility] [address] [place], [place] [address] ALDOSTERONE Collected: 04/19/2018 Status: F Source: TEA 8:[address] [facility] REPOSITORY TYPE CODE TESTS RESULT OUT OF REFERENCE UNITS RANGE LAB PATRIZIA 3.1-35.4 ng/dL Aldosterone 9.7 Result Comment: Normal serum levels of aldosterone are dependent on the sodium intake and whether the patient is upright or supine. High sodium intake will tend to suppress serum aldosterone, whereas lo w sodium intake will elevate serum aldosterone. The reference interval for serum aldosterone are based on a normal sodium intake. Supine reference range <23.1 ng/dL Performed By: #### CBCDIF, CMP, LIPB, RENIND, PATRIZIA, ACTH #### [facility] [address] [place], [place] [address] ACTH Collected: 04/19/2018 Status: F Source: TEA 8:[address] [facility] REPOSITORY TYPE CODE TESTS RESULT OUT OF RANGE REFERENCE UNITS LAB ACTH <47 pg/mL ACTH 30 Performed By: #### CBCDIF, CMP, LIPB, RENIND, PATRIZIA, ACTH #### [facility] [address] [place], [place] [address] PROGRESS Observed: 04/16/2018 Status: COMPLETED Source: TEA 8:[address] [facility] REPOSITORY HNO ID: [id number] Author: Donnell Jordan Service: (none) Author Type: Physician Type: Progress Notes Filed: 04/16/2018 8:41 PM Note Text: Thank you for requesting an Endocrinology E-Consult for your 62 year old male patient, Lazaro Garzon for evaluation/treatment of Adrenal mass indeterminate. ? Your clinical question: ?Please give direction if an indeterminate adrenal mass needs additional work up. Comments/pertinent chart review: Left adrenal mass was noted on CT scan without contrast dated Apr 12, 2018. It measured 1.8 cm and HU was > 10 (not specified). This adrenal nodule was noted previously on CT scans. Report of CT scan of chest (outside study, report scanned to [facility]) on December, noted a left 1.6 cm left adrenal nodule; which was stable compared with December,. Patient has hypertension, currently treated with Amlodipine. He is on potassium supplement. BP has been often elevated for the past year. Of note, he is also on NSAIDS. Plasma metanephrines were normal in December, Recommendations: 1. Obtain labs to evaluate for pheochromocytoma, hyperaldosteronism and hypercortisolism. These include: * Plasma metanephrines * Aldosterone, Renin, Potassium and Creatinine (simultaenously) * ACTH and cortisol in early AM (8:00 AM) 2. A non-urgent, next available appointment should be scheduled Please don't hesitate to contact us if you have further questions. Sincerely, Donnell Jordan MD, KRISSY PROGRESS Observed: 04/12/2018 Status: COMPLETED Source: TEA 3:[address] [facility] REPOSITORY HNO ID: [id number] Author: Mallory Delatorre Service: (none) Author Type: (none) Type: Progress Notes Filed: 04/12/2018 3:45 PM Note Text: Radiology Service Progress Note PATIENT NAME: Lazaro Garzon DATE OF SERVICE: April 12, 2018 TIME: 3:44 PM PATIENT IDENTITY VERIFICATION COMPLETED USING TWO (2) METHODS: Patient confirmed name verbally and Date of . PATIENT GENDER DATA: Male PATIENT RELEVANT IMPLANT DATA REVIEWED: Not Applicable RADIOLOGY DEPARTMENT: CT; Exam(s) Completed: Abdomen/Pelvis PERIPHERAL IV DATA: Not applicable SIGNED BY: Mallory Delatorre April 12, 2018 3:[address] FLANK WO IVCON Observed: 04/12/2018 Status: C Source: TEA 3:41 PM [facility] REPOSITORY * * *Final Report* * * * * * SEE BOTTOM OF REPORT FOR ADDENDED TEXT * * * DATE OF EXAM: Apr 12 2018 3:41PM [facility] 0529 - CT FLANK WO IVCON / PROCEDURE REASON: multiple diagnoses * * * * Physician Interpretation * * * * * * * * * * * * ORIGINAL REPORT * * * * * * * * EXAMINATION: CT ABDOMEN AND PELVIS WITHOUT IV CONTRAST (Renal stone protocol) CLINICAL HISTORY: LEFT flank pain. Hematuria. TECHNIQUE: Non-contrast imaging of the abdomen and pelvis was performed through the urinary tract. Study performed without intravenous or oral contrast to evaluate for urinary tract calculus. MQ: [id number] Contrast: IV contrast: None Oral contrast: None CT Radiation dose: Integrated dose-length product (DLP) for this visit = 1048 mGy*cm. CT Dose Reduction Employed: Automated exposure control(AEC) and iterative recon COMPARISON: Right upper quadrant ultrasound 02/26/2016 RESULT: Limitations: Unenhanced imaging is limited for the evaluation of some renal and other intra-abdominal and pelvic pathology. Urinary Tract: Right kidney and ureter: No calculus. No hydronephrosis. 4.3 cm lower pole cyst. Left kidney and ureter: No calculus. No hydronephrosis. Small peripelvic cysts. Bladder: No calculus. Abdomen and Pelvis: Liver: 1.1 cm right hepatic cyst. Biliary: S/p cholecystectomy. Spleen: No splenomegaly. Pancreas: Unremarkable. Adrenals: 1.8 cm left adrenal nodule measures above 10 Hounsfield units and therefore is indeterminate (3:50). GI Tract: No bowel dilation. Appendix not visualized. There is diverticulosis. No changes of diverticulitis. Lymph Nodes: No lymphadenopathy. Mesentery/peritoneum: No ascites. Vasculature: Arterial atherosclerotic disease without aneurysm. Pelvis: No mass or ascites. Enlarged prostate. Penile implant. Bones/Soft Tissues: Small fat-containing periumbilical hernia. Scattered sclerotic foci throughout the spine and pelvis, probably bone islands. Degenerative changes of the spine. Age-indeterminate chronic appearing mild superior endplate compression deformity at L1. Lower thorax: 3 mm left lower lobe nodular opacity (3:13), probably post infectious/post inflammatory. Coronary artery calcifications. IMPRESSION: NO URINARY TRACT CALCULUS OR HYDRONEPHROSIS. NO ACUTE FINDINGS IN THE ABDOMEN OR PELVIS. 1.8 CM INDETERMINATE LEFT ADRENAL NODULE. * * * * * * * * ADDENDUM #1 * * * * * * * * Comparison images made available: CT abdomen and pelvis without contrast 10/01/2015. 1.8 cm left adrenal nodule measures above 10 Hounsfield units (3:50) and is stable in size since 10/01/2015. Addended impression: 1.8 cm left adrenal nodule is stable since 10/01/2015 and therefore most likely benign. Canoe Builder: PSCB Transcribe Date/Time: May 09 2018 3:30P Dictated by : ROGER MONTOYA MD This examination was interpreted and the report reviewed and electronically signed by: ROGER MONTOYA MD on Apr 12 2018 4:19PM EST This document has been addended by: ROGER MONTOYA MD on May 09 2018 3:33PM EST [id number] Observed: 04/12/2018 Status: F Source: TEA URINE CULTURE 2:[address] [facility] REPOSITORY Sp. Request/Comment: - Specimen received in preservative Culture Result - <10,000 CFU/ml Normal urogenital richard Performed By: #### URCUL #### [facility] [address] [place], [place] [address] CNOV Observed: 04/12/2018 Status: COMPLETED Source: TEA 2:[address] [facility] REPOSITORY Office Visit (FAMPWS) LAZARO GARZON ([id number]) 1955 Sincere Date Time Provider Department 04/12/18 2:20 PM Sincere HUNG) FAMPWS During your visit today, we recorded the following information about you: Temperature Pulse Blood pressure 100.9 degrees 98/minute 150/78 M Marc Hung PA-C 04/12/2018 3:29 PM Signed 62 year old male with c/o 1. Blood in urine this morning, pain in right flank, intense, nauseated, no vomiting. Hesitancy. Monogamous with . Recent move. 2. Cold sx over last 2 weeks or so. Occasional coough with deep breath. Hasn't been cleaning CPAP machine like he should. No fever. Feels congested, some blood on blowing. 3. Leaking bowel. Has been incontinent with mushy stool twice in last 2 days. Having a lot of stool, 4 times so far today. Poor appetite. HISTORIES FAMILY HISTORY Problem Relation Age of Onset - Hypertension Mother - Heart Mother - Heart Father of [place] - Stroke Mother - Asthma Daughter - Allergies Mother - Allergies Father - Allergies Sister - Allergies Brother - Allergies Daughter PAST MEDICAL HISTORY Diagnosis Date - Abdominal pain, unspecified site - Adrenal nodule (HCC) unchanged after >2 years - Anxiety state, unspecified - Asthma childhood - CAD (coronary artery disease) - Chronic low back pain - Diaphragmatic hernia without mention of obstruction or gangrene - Diaphragmatic hernia without mention of obstruction or gangrene - Diverticulosis of colon (without mention of hemorrhage) - Esophageal reflux - Essential hypertension, benign 03/20/2012 - Fibromyalgia - Hemorrhoids - Hypogonadism male treated per urology - Impotence of organic origin - Lung nodule repeat ct in 01/02 - Palpitations - Personal history of colonic polyps 2004 polyps - Pulmonary embolism (HCC) completed treatment per pulm - Recurrent pneumonia 14 times PAST SURGICAL HISTORY Procedure Laterality Date - COLONOSCOP W/ OR W/O [facility] SPEC 2004 Colonoscopy - COLONOSCOP W/ OR W/O [facility] SPEC 03/07/11 wnl - COLONOSCOPY N/A 07/20/2016 MAC - EGD N/A 07/20/2016 MAC - EGD W/O OR W/BRUSH/WASH 05/24/2011 EGD - HEMORRHOIDECTOMY, EXTNL; COMP 04/30/15 - LAP CHOLECYSTECT/CHOLANGIOGRAPHY 2004 [facility] [place] - Dr. 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 Social History Main Topics Smoking status: Former Smoker Packs/day: 2.00 Years: 5.00 Types: Cigarettes Quit date: 02/08/1987 Smokeless tobacco: Current User Types: Chew Comment: patient smoked for a few months in 2006 Alcohol use: Yes 18.0 oz/week Comment: rare Drug use: No Comment: marijuana in past not since 20 y/o ACTIVE PROBLEM LIST Hyperlipidemia Palpitations Shortness of Breath Diaphragmatic Hernia Without Mention of Obstruction Or Gangrene Esophageal Reflux Asbestos Exposure Essential Hypertension, Benign Pulmonary Embolism (Hcc) Hyperhydrosis Disorder Low Testosterone CAD (coronary artery disease) s/p PTCA/STENT. Sleep Apnea Peyronie's Disease Impotence of Organic Origin Asthma Adrenal Nodule (Hcc) Lung Nodule Hypokalemia Polyarthritis Current Outpatient Prescriptions: amLODIPine (NORVASC) 5 mg tablet TAKE 1 TABLET BY MOUTH ONCE DAILY Disp: 90 tablet Rfl: 3 VITAMIN D 1,000 unit cap TAKE 1 CAPSULE BY MOUTH ONCE DAILY Disp: 30 capsule Rfl: 5 DULoxetine (CYMBALTA) 30 mg capsule TAKE 1 CAPSULE BY MOUTH ONCE DAILY Disp: 30 capsule Rfl: 2 meloxicam (MOBIC) 15 mg tablet TAKE 1 TABLET BY MOUTH ONCE DAILY WITH FOOD Disp: 30 tablet Rfl: 2 allopurinol (ZYLOPRIM) 100 mg tablet TAKE ONE TABLET BY MOUTH ONCE DAILY FOR GOUT Disp: 90 tablet Rfl: 3 testosterone cypionate (DEPO-TESTOSTERONE) 200 mg/mL injection INJECT 0.5 ML ONCE A WEEK Disp: 10 mL Rfl: 0 esomeprazole (NEXIUM) 40 mg capsule TAKE ONE CAPSULE BY MOUTH ONCE DAILY Disp: 90 capsule Rfl: 3 potassium chloride (K-TAB) 10 mEq tablet Take 2 tablets by mouth once daily. Disp: 180 tablet Rfl: 3 gabapentin (NEURONTIN) 300 mg capsule Take 1 capsule by mouth three times daily. Disp: Rfl: albuterol HFA (PROAIR HFA) 90 mcg/actuation inhaler Inhale 2 Puffs as instructed every 4 hours as needed (FOR COUGH OR WHEEZE). Disp: 1 Inhaler Rfl: 2 cyanocobalamin (VITAMIN B-12) 1,000 mcg tab Take 1,000 mcg by mouth once daily. Disp: Rfl: Syringe with Needle, Disp, (BD LUER-YOHANA SYRINGE) 3 mL 23 x 1 1/2 syrg Uses 4 syringes per month with testosterone injections (Patient taking differently: Inject 1 Each intramuscularly once each week. Uses 4 syringes per month with testosterone injections) Disp: 12 Syringe Rfl: 3 Needle, Disp, 18 G (BD NOKOR ADMIX NEEDLE) 18 x 1 1/2 ndle Uses 4 per month to draw up testosterone from vial (Patient taking differently: Inject 1 Each intramuscularly once each week. Uses 4 per month to draw up testosterone from vial) Disp: 12 Each Rfl: 3 aspirin, enteric coated (ECOTRIN LOW STRENGTH) 81 mg ORAL EC tablet Take 1 tablet by mouth once daily. Disp: Rfl: 0 MULTIVITAMIN TAB Take one(1) tablet daily BY MOUTH. Disp: Rfl: 0 No current facility-administered medications for this visit. BP CONTROLLED (<130/80) due on 09/22/1975 DTAP,TDAP,TD(1 - Tdap) due on 1976 HEPATITIS C SCREENING due on 2001 LDL CHOLESTEROL due on 03/29/2015 INFLUENZA(1) due on 02/17/2018 EXAM: BP 150/78 Pulse 98 Temp 37.8 ?C (100 ?F) (Tympanic) SpO2 97% Pleasant overweight tall man in ill but not toxic appearance. . Alert and oriented all spheres. Normal affect and cognition. Speech normal. No deficits to learning or comprehension. Skin warm, very warm, slightly diaphoretic. pink to lips and nailbeds. Normal turgor. Respirations regular and unlabored. Eupneic. HEENT WNL. TM's clear. Nose and oropharynx free from injection or lesion. No cervical lymph nodes. Thyroid non-tender, no masses Chest CTA. HRRR without murmur or gallop. Abdomen: active bowel sounds throughout, soft, some tenderness in right upper quadrant, no masses or organomegaly. No CVAT to percussion but tender in flank muscle. Penis circumsized. Meatus without evidence of blood or discharge. Testicles descended bilaterally. No masses or nodules. No hernias. No inguinal nodes. Rectal: normal tone, large external hemorrhoid, non-thrombosed. No internal lesions. Prostate 1/4+ size, + tenderness , guarding. No nodules. Stool light brown with blood streak on glove. GUAIAC neg with QC checked Extrem: no clubbing, cyanosis, edema. Extremities are warm and pink with prompt capillary refill. ASSESSMENT/PLAN: 1. Flank pain - ICD9: 789.09, ICD10: R10.9 (primary diagnosis) - UA DIP B/O - CT FLANK WO IVCON 2. Hematuria, unspecified type - ICD9: 599.70, ICD10: R31.9 - URINE CULTURE 3. Prostatitis, acute - ICD9: 601.0, ICD10: N41.0 - URINE CULTURE - Cipro 500mg BID x 10 days pending study results. 4. Febrile illness, acute - ICD9: 780.60, ICD10: R50.9 - CT FLANK WO IVCON - CBC + DIFF - COMP METABOLIC PANEL 5. Fibromyalgia - ICD9: 729.1, ICD10: M79.7 - GABAPENTIN 300 MG CAPSULE M Marc Hung PA-C Referring Provider: JAGJIT CHEEMA [[id number]] Allergies As of Date: 04/12/2018 Noted Allergy Reaction SULFA (SULFONAMIDE ANTIBIOTICS) 03/10/2005 2 - Rash MOTRIN (IBUPROFEN) 03/20/2012 2 - Rash 9 - Itching Date Reviewed: 02/27/2018 Reviewed by: Keely [facility]Brooks HospitalSilke Upton - Fully Assessed Reason for Visit: Chest Congestion [236] Hematuria [335] Reason For Visit History Recorded Primary Visit Diagnosis:Flank pain [R10.9] Other Visit Diagnoses:Hematuria, unspecified type [R31.9] Prostatitis, acute [N41.0] Febrile illness, acute [R50.9] Fibromyalgia [M79.7] Order(s):UA DIP B/O [[id number]] Order #: [id number] gabapentin (NEURONTIN) 300 mg capsuleTake 1 capsule by mouth three times daily.Disp: 90 capsuleRfl: 11 URINE CULTURE [SQURCUL] Order #: [id number] CT FLANK WO IVCON [[id number]] Order #: [id number] FUTURE CBC + DIFF [SQCBCDIF] Order #: [id number] FUTURE COMP METABOLIC PANEL [SQCMP] Order #: [id number] FUTURE ciprofloxacin HCl (CIPRO) 500 mg tabletTake 1 tablet by mouth twice daily.Disp: 20 tabletRfl: 0 UA DIP, URINE (POC) [[id number]] Order #: [id number]. #:[id number] Prescriptions as of 04/12/2018 Sig: GABAPENTIN 300 MG CAPSULE Take 1 capsule by mouth three* AMLODIPINE 5 MG TABLET TAKE 1 TABLET BY MOUTH ONCE D* VITAMIN D3 1,000 UNIT CAPSULE TAKE 1 CAPSULE BY MOUTH ONCE * DULOXETINE 30 MG CAPSULE,KELSI* TAKE 1 CAPSULE BY MOUTH ONCE * MELOXICAM 15 MG TABLET TAKE 1 TABLET BY MOUTH ONCE D* ALLOPURINOL 100 MG TABLET TAKE ONE TABLET BY MOUTH ONCE* TESTOSTERONE CYPIONATE 200 MG* INJECT 0.5 ML ONCE A WEEK ESOMEPRAZOLE MAGNESIUM 40 MG * TAKE ONE CAPSULE BY MOUTH ONC* POTASSIUM CHLORIDE ER 10 MEQ * Take 2 tablets by mouth once * ALBUTEROL SULFATE HFA 90 MCG/* Inhale 2 Puffs as instructed * CYANOCOBALAMIN (VIT B-12) 1,0* Take 1,000 mcg by mouth once * SYRINGE WITH NEEDLE 3 ML 23 G* Uses 4 syringes per month wit* Patient taking differently: Inject 1 Each intramuscularly* NEEDLE (DISP) 18 GAUGE X 1 1/* Uses 4 per month to draw up t* Patient taking differently: Inject 1 Each intramuscularly* ASPIRIN 81 MG TABLET,DELAYED * Take 1 tablet by mouth once d* MULTIVITAMIN TABLET Take one(1) tablet daily BY M* CIPROFLOXACIN 500 MG TABLET Take 1 tablet by mouth twice * Problem List As Of Date 04/12/2018 Noted Resolved Hyperlipidemia [E78.5] INVALID FOR* Palpitations [R00.2] INVALID FOR* Shortness of breath [R06.02] INVALID FOR* Diaphragmatic hernia without mention of obstruc*INVALID FOR* Esophageal reflux [K21.9] INVALID FOR* Asbestos exposure [Z77.090] INVALID FOR* Essential hypertension, benign [I10] INVALID FOR* Pulmonary embolism (HCC) [I26.99] INVALID FOR* Hyperhydrosis disorder [R61] INVALID FOR* Low testosterone [E34.9] INVALID FOR* CAD (coronary artery disease) s/p PTCA/STENT. *INVALID FOR* Sleep apnea [G47.30] INVALID FOR* Peyronie's disease [N48.6] INVALID FOR* Impotence of organic origin [N52.9] INVALID FOR* Asthma [J45.909] INVALID FOR* More... Adrenal nodule (HCC) [E27.9] INVALID FOR* More... Lung nodule [R91.1] INVALID FOR* More... Hypokalemia [E87.6] INVALID FOR* Polyarthritis [M13.0] INVALID FOR* Prescriptions ordered this encounter Disp Refills Start End GABAPENTIN 300 MG CAPSULE 90 c* 11 04/12/2018 04/12/2019 Route: ORAL Sig: Take 1 capsule by mouth three times daily. CIPROFLOXACIN 500 MG TABLET 20 t* 0 04/12/2018 Route: ORAL Sig: Take 1 tablet by mouth twice daily. Medications Discontinued During This Encounter gabapentin (NEURONTIN) 300 mg capsule 09/13/2017 04/12/2018 Class: Med Update Route: ORAL Sig: Take 1 capsule by mouth three times daily. Disc: Reason for discontinue is not on file. Encounter Status:Closed by Sincere HUNG PA-C on 04/12/18 PROGRESS Observed: 04/12/2018 Status: COMPLETED Source: TEA 2:[address] [facility] REPOSITORY O ID: [id number] Author: Sincere Tran (Simon) Abhilash Service: (none) Author Type: Physician Judicial Reporter Type: Progress Notes Filed: 04/12/2018 3:29 PM Note Text: 62 year old male with c/o 1. Blood in urine this morning, pain in right flank, intense, nauseated, no vomiting. Hesitancy. Monogamous with . Recent move. 2. Cold sx over last 2 weeks or so. Occasional coough with deep breath. Hasn't been cleaning CPAP machine like he should. No fever. Feels congested, some blood on blowing. 3. Leaking bowel. Has been incontinent with mushy stool twice in last 2 days. Having a lot of stool, 4 times so far today. Poor appetite. HISTORIES FAMILY HISTORY Problem Relation Age of Onset - Hypertension Mother - Heart Mother - Heart Father of [place] - Stroke Mother - Asthma Daughter - Allergies Mother - Allergies Father - Allergies Sister - Allergies Brother - Allergies Daughter PAST MEDICAL HISTORY Diagnosis Date - Abdominal pain, unspecified site - Adrenal nodule (HCC) unchanged after >2 years - Anxiety state, unspecified - Asthma childhood - CAD (coronary artery disease) - Chronic low back pain - Diaphragmatic hernia without mention of obstruction or gangrene - Diaphragmatic hernia without mention of obstruction or gangrene - Diverticulosis of colon (without mention of hemorrhage) - Esophageal reflux - Essential hypertension, benign 03/20/2012 - Fibromyalgia - Hemorrhoids - Hypogonadism male treated per urology - Impotence of organic origin - Lung nodule repeat ct in 01/02 - Palpitations - Personal history of colonic polyps 2004 polyps - Pulmonary embolism (HCC) completed treatment per pulm - Recurrent pneumonia 14 times PAST SURGICAL HISTORY Procedure Laterality Date - COLONOSCOP W/ OR W/O [facility] SPEC 2004 Colonoscopy - COLONOSCOP W/ OR W/O [facility]SH SPEC 03/07/11 wnl - COLONOSCOPY N/A 07/20/2016 MAC - EGD N/A 07/20/2016 MAC - EGD W/O OR W/BRUSH/WASH 05/24/2011 EGD - HEMORRHOIDECTOMY, EXTNL; COMP 04/30/15 - LAP CHOLECYSTECT/CHOLANGIOGRAPHY 2004 [facility] [place] - Dr. 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 Social History Main Topics Smoking status: Former Smoker Packs/day: 2.00 Years: 5.00 Types: Cigarettes Quit date: 02/08/1987 Smokeless tobacco: Current User Types: Chew Comment: patient smoked for a few months in 2006 Alcohol use: Yes 18.0 oz/week Comment: rare Drug use: No Comment: marijuana in past not since 20 y/o ACTIVE PROBLEM LIST Hyperlipidemia Palpitations Shortness of Breath Diaphragmatic Hernia Without Mention of Obstruction Or Gangrene Esophageal Reflux Asbestos Exposure Essential Hypertension, Benign Pulmonary Embolism (Hcc) Hyperhydrosis Disorder Low Testosterone CAD (coronary artery disease) s/p PTCA/STENT. Sleep Apnea Peyronie's Disease Impotence of Organic Origin Asthma Adrenal Nodule (Hcc) Lung Nodule Hypokalemia Polyarthritis Current Outpatient Prescriptions: amLODIPine (NORVASC) 5 mg tablet TAKE 1 TABLET BY MOUTH ONCE DAILY Disp: 90 tablet Rfl: 3 VITAMIN D 1,000 unit cap TAKE 1 CAPSULE BY MOUTH ONCE DAILY Disp: 30 capsule Rfl: 5 DULoxetine (CYMBALTA) 30 mg capsule TAKE 1 CAPSULE BY MOUTH ONCE DAILY Disp: 30 capsule Rfl: 2 meloxicam (MOBIC) 15 mg tablet TAKE 1 TABLET BY MOUTH ONCE DAILY WITH FOOD Disp: 30 tablet Rfl: 2 allopurinol (ZYLOPRIM) 100 mg tablet TAKE ONE TABLET BY MOUTH ONCE DAILY FOR GOUT Disp: 90 tablet Rfl: 3 testosterone cypionate (DEPO-TESTOSTERONE) 200 mg/mL injection INJECT 0.5 ML ONCE A WEEK Disp: 10 mL Rfl: 0 esomeprazole (NEXIUM) 40 mg capsule TAKE ONE CAPSULE BY MOUTH ONCE DAILY Disp: 90 capsule Rfl: 3 potassium chloride (K-TAB) 10 mEq tablet Take 2 tablets by mouth once daily. Disp: 180 tablet Rfl: 3 gabapentin (NEURONTIN) 300 mg capsule Take 1 capsule by mouth three times daily. Disp: Rfl: albuterol HFA (PROAIR HFA) 90 mcg/actuation inhaler Inhale 2 Puffs as instructed every 4 hours as needed (FOR COUGH OR WHEEZE). Disp: 1 Inhaler Rfl: 2 cyanocobalamin (VITAMIN B-12) 1,000 mcg tab Take 1,000 mcg by mouth once daily. Disp: Rfl: Syringe with Needle, Disp, (BD LUER-YOHANA SYRINGE) 3 mL 23 x 1 1/2 syrg Uses 4 syringes per month with testosterone injections (Patient taking differently: Inject 1 Each intramuscularly once each week. Uses 4 syringes per month with testosterone injections) Disp: 12 Syringe Rfl: 3 Needle, Disp, 18 G (BD NOKOR ADMIX NEEDLE) 18 x 1 1/2 ndle Uses 4 per month to draw up testosterone from vial (Patient taking differently: Inject 1 Each intramuscularly once each week. Uses 4 per month to draw up testosterone from vial) Disp: 12 Each Rfl: 3 aspirin, enteric coated (ECOTRIN LOW STRENGTH) 81 mg ORAL EC tablet Take 1 tablet by mouth once daily. Disp: Rfl: 0 MULTIVITAMIN TAB Take one(1) tablet daily BY MOUTH. Disp: Rfl: 0 No current facility-administered medications for this visit. BP CONTROLLED (<130/80) due on 09/22/1975 DTAP,TDAP,TD(1 - Tdap) due on 1976 HEPATITIS C SCREENING due on 2001 LDL CHOLESTEROL due on 03/29/2015 INFLUENZA(1) due on 02/17/2018 EXAM: BP 150/78 Pulse 98 Temp 37.8 ?C (100 ?F) (Tympanic) SpO2 97% Pleasant overweight tall man in ill but not toxic appearance. . Alert and oriented all spheres. Normal affect and cognition. Speech normal. No deficits to learning or comprehension. Skin warm, very warm, slightly diaphoretic. pink to lips and nailbeds. Normal turgor. Respirations regular and unlabored. Eupneic. HEENT WNL. TM's clear. Nose and oropharynx free from injection or lesion. No cervical lymph nodes. Thyroid non-tender, no masses Chest CTA. HRRR without murmur or gallop. Abdomen: active bowel sounds throughout, soft, some tenderness in right upper quadrant, no masses or organomegaly. No CVAT to percussion but tender in flank muscle. Penis circumsized. Meatus without evidence of blood or discharge. Testicles descended bilaterally. No masses or nodules. No hernias. No inguinal nodes. Rectal: normal tone, large external hemorrhoid, non-thrombosed. No internal lesions. Prostate 1/4+ size, + tenderness , guarding. No nodules. Stool light brown with blood streak on glove. GUAIAC neg with QC checked Extrem: no clubbing, cyanosis, edema. Extremities are warm and pink with prompt capillary refill. ASSESSMENT/PLAN: 1. Flank pain - ICD9: 789.09, ICD10: R10.9 (primary diagnosis) - UA DIP B/O - CT FLANK WO IVCON 2. Hematuria, unspecified type - ICD9: 599.70, ICD10: R31.9 - URINE CULTURE 3. Prostatitis, acute - ICD9: 601.0, ICD10: N41.0 - URINE CULTURE - Cipro 500mg BID x 10 days pending study results. 4. Febrile illness, acute - ICD9: 780.60, ICD10: R50.9 - CT FLANK WO IVCON - CBC + DIFF - COMP METABOLIC PANEL 5. Fibromyalgia - ICD9: 729.1, ICD10: M79.7 - GABAPENTIN 300 MG CAPSULE M Marc Hung PA-C PROGRESS Observed: 02/27/2018 Status: COMPLETED Source: TEA 12:39 PM [facility] [place] REPOSITORY HNO ID: [id number] Author: Keely Upton Service: (none) Author Type: Nurse Practitioner Type: Progress Notes Filed: 02/27/2018 4:07 PM Note Text: Subjective HPI HPI Lazaro Garzon is a 62 year old male who presents today for CC of right eye pain/burning. This started 2 weeks ago/gotten worse. Hx of ocular shingles, treated by washing machine operator. Patient reports this feels same. .Patient presents with: Rash: around right eye x 2 weeks, burning sensation PAST MEDICAL HISTORY Diagnosis Date - Abdominal pain, unspecified site - Adrenal nodule (HCC) unchanged after >2 years - Anxiety state, unspecified - Asthma childhood - CAD (coronary artery disease) - Chronic low back pain - Diaphragmatic hernia without mention of obstruction or gangrene - Diaphragmatic hernia without mention of obstruction or gangrene - Diverticulosis of colon (without mention of hemorrhage) - Esophageal reflux - Essential hypertension, benign 03/20/2012 - Fibromyalgia - Hemorrhoids - Hypogonadism male treated per urology - Impotence of organic origin - Lung nodule repeat ct in 01/02 - Palpitations - Personal history of colonic polyps 2004 polyps - Pulmonary embolism (HCC) completed treatment per pulm - Recurrent pneumonia 14 times PAST SURGICAL HISTORY Procedure Laterality Date - COLONOSCOP W/ OR W/O [facility] SPEC 2004 Colonoscopy - COLONOSCOP W/ OR W/O [facility] SPEC 03/07/11 wnl - COLONOSCOPY N/A 07/20/2016 MAC - EGD N/A 07/20/2016 MAC - EGD W/O OR W/BRUSH/WASH 05/24/2011 EGD - HEMORRHOIDECTOMY, EXTNL; COMP 04/30/15 - LAP CHOLECYSTECT/CHOLANGIOGRAPHY 2004 [facility] [place] - Dr. Hernandes - PERCUTANEOUS CORONARY INTERVENTION stent to LAD - REMOVAL ADENOIDS,PRIMARY,<12 Y/O Adenoidectomy - REMOVAL OF TONSILS,<12 Y/O Tonsillectomy - REPAIR ROTATOR CUFF,ACUTE Rotator cuff repair ALLERGIES Sulfa (Sulfonamide Antibiotics); Motrin [Ibuprofen] MEDICATIONS testosterone cypionate (DEPO-TESTOSTERONE) 200 mg/mL injection INJECT 0.5 ML ONCE A WEEK DULoxetine (CYMBALTA) 30 mg capsule TAKE 1 CAPSULE BY MOUTH ONCE DAILY meloxicam (MOBIC) 15 mg tablet TAKE 1 TABLET BY MOUTH ONCE DAILY WITH FOOD esomeprazole (NEXIUM) 40 mg capsule TAKE ONE CAPSULE BY MOUTH ONCE DAILY Cholecalciferol, Vitamin D3, 1,000 unit cap Take 1 capsule by mouth once daily. potassium chloride (K-TAB) 10 mEq tablet Take 2 tablets by mouth once daily. gabapentin (NEURONTIN) 300 mg capsule Take 1 capsule by mouth three times daily. amLODIPine (NORVASC) 5 mg tablet TAKE ONE TABLET BY MOUTH ONCE DAILY albuterol HFA (PROAIR HFA) 90 mcg/actuation inhaler Inhale 2 Puffs as instructed every 4 hours as needed (FOR COUGH OR WHEEZE). cyanocobalamin (VITAMIN B-12) 1,000 mcg tab Take 1,000 mcg by mouth once daily. Syringe with Needle, Disp, (BD LUER-YOHANA SYRINGE) 3 mL 23 x 1 1/2 syrg Uses 4 syringes per month with testosterone injections Needle, Disp, 18 G (BD NOKOR ADMIX NEEDLE) 18 x 1 1/2 ndle Uses 4 per month to draw up testosterone from vial aspirin, enteric coated (ECOTRIN LOW STRENGTH) 81 mg ORAL EC tablet Take 1 tablet by mouth once daily. MULTIVITAMIN TAB Take one(1) tablet daily BY MOUTH. FAMILY HISTORY Problem Relation Age of Onset - Hypertension Mother - Heart Mother - Heart Father of [place] - Stroke Mother - Asthma Daughter - Allergies Mother - Allergies Father - Allergies Sister - Allergies Brother - Allergies Daughter Social History Substance Use Topics - Smoking status: Former Smoker Packs/day: 2.00 Years: 5.00 Types: Cigarettes Quit date: 02/08/1987 - Smokeless tobacco: Current User Types: Chew Comment: patient smoked for a few months in 2006 - Alcohol use 18.0 oz/week Comment: rare Review of Systems Eyes: Positive for photophobia and pain. Negative for double vision, discharge and redness. Objective Blood pressure 142/78, pulse 78, temperature 36.7 ?C (98 ?F), temperature source Tympanic, resp. rate 18, weight (!) 146.1 kg (322 lb). Component Latest Ref Rng AND Units 09/13/2017 Protein, Total 6.3 - 8.0 g/dL 7.0 Albumin 3.9 - 4.9 g/dL 4.2 Calcium 8.5 - 10.2 mg/dL 9.3 Bilirubin, Total 0.2 - 1.3 mg/dL 0.9 Alkaline Phosphatase 36 - 108 U/L 66 AST 14 - 40 U/L 23 Glucose 74 - 99 mg/dL 90 BUN 9 - 24 mg/dL 11 Creatinine 0.73 - 1.22 mg/dL 1.16 Sodium 136 - 144 mmol/L 138 Potassium 3.7 - 5.1 mmol/L 4.1 Chloride 97 - 105 mmol/L 102 CO2 22 - 30 mmol/L 22 Anion Gap 9 - 18 mmol/L 14 ALT 10 - 54 U/L 24 eGFR- >60 eGFR-All Other Races . >60 Physical Exam HENT: Right Ear: Hearing, tympanic membrane, external ear and ear canal normal. Left Ear: Hearing, tympanic membrane, external ear and ear canal normal. Mouth/Throat: Uvula is midline, oropharynx is clear and moist and mucous membranes are normal. Eyes: Pupils are equal, round, and reactive to light. Conjunctivae, EOM and lids are normal. Lymphadenopathy: Right cervical: No superficial cervical adenopathy present. Left cervical: No superficial cervical adenopathy present. ASSESSMENT/PLAN: 1. Herpes zoster without complication - ICD9: 053.9, ICD10: B02.9 -appointment made with eye doctor today - FAMCICLOVIR 500 MG TABLET Prescription instructions reviewed with patient as applicable. Patient advised if symptoms do not improve or if symptoms worsen sooner, to contact the office for further evaluation by their primary care physician. Potential red flag symptoms discussed with the patient. Reviewed appropriate action plan to take if red flag symptoms occur. Patient agreeable to treatment plan. Keely Upton APRN.SIN CNOV Observed: 02/27/2018 Status: COMPLETED Source: TEA 12:[address] [facility] REPOSITORY Office Visit ([facility]) LAZARO GARZON ([id number]) 1955 M Date Time Provider Department 02/27/18 12:30 PM KEELY UPTON) WSTR During your visit today, we recorded the following information about you: Temperature Pulse Respiration Blood pressure 98 degrees 78/minute 18/minute 142/78 Weight 146.1 kg Keely Upton APRN.CNP 02/27/2018 4:07 PM Signed Subjective HPI HPI Lazaro Garzon is a 62 year old male who presents today for CC of right eye pain/burning. This started 2 weeks ago/gotten worse. Hx of ocular shingles, treated by washing machine operator. Patient reports this feels same. .Patient presents with: Rash: around right eye x 2 weeks, burning sensation PAST MEDICAL HISTORY Diagnosis Date - Abdominal pain, unspecified site - Adrenal nodule (HCC) unchanged after >2 years - Anxiety state, unspecified - Asthma childhood - CAD (coronary artery disease) - Chronic low back pain - Diaphragmatic hernia without mention of obstruction or gangrene - Diaphragmatic hernia without mention of obstruction or gangrene - Diverticulosis of colon (without mention of hemorrhage) - Esophageal reflux - Essential hypertension, benign 03/20/2012 - Fibromyalgia - Hemorrhoids - Hypogonadism male treated per urology - Impotence of organic origin - Lung nodule repeat ct in 01/02 - Palpitations - Personal history of colonic polyps 2004 polyps - Pulmonary embolism (HCC) completed treatment per pulm - Recurrent pneumonia 14 times PAST SURGICAL HISTORY Procedure Laterality Date - COLONOSCOP W/ OR W/O [facility] SPEC 2004 Colonoscopy - COLONOSCOP W/ OR W/O [facility] SPEC 03/07/11 wnl - COLONOSCOPY N/A 07/20/2016 MAC - EGD N/A 07/20/2016 MAC - EGD W/O OR W/BRUSH/WASH 05/24/2011 EGD - HEMORRHOIDECTOMY, EXTNL; COMP 04/30/15 - LAP CHOLECYSTECT/CHOLANGIOGRAPHY 2004 [facility] [place] - Dr. Hernandes - PERCUTANEOUS CORONARY INTERVENTION stent to LAD - REMOVAL ADENOIDS,PRIMARY,<12 Y/O Adenoidectomy - REMOVAL OF TONSILS,<12 Y/O Tonsillectomy - REPAIR ROTATOR CUFF,ACUTE Rotator cuff repair ALLERGIES Sulfa (Sulfonamide Antibiotics); Motrin [Ibuprofen] MEDICATIONS testosterone cypionate (DEPO-TESTOSTERONE) 200 mg/mL injection INJECT 0.5 ML ONCE A WEEK DULoxetine (CYMBALTA) 30 mg capsule TAKE 1 CAPSULE BY MOUTH ONCE DAILY meloxicam (MOBIC) 15 mg tablet TAKE 1 TABLET BY MOUTH ONCE DAILY WITH FOOD esomeprazole (NEXIUM) 40 mg capsule TAKE ONE CAPSULE BY MOUTH ONCE DAILY Cholecalciferol, Vitamin D3, 1,000 unit cap Take 1 capsule by mouth once daily. potassium chloride (K-TAB) 10 mEq tablet Take 2 tablets by mouth once daily. gabapentin (NEURONTIN) 300 mg capsule Take 1 capsule by mouth three times daily. amLODIPine (NORVASC) 5 mg tablet TAKE ONE TABLET BY MOUTH ONCE DAILY albuterol HFA (PROAIR HFA) 90 mcg/actuation inhaler Inhale 2 Puffs as instructed every 4 hours as needed (FOR COUGH OR WHEEZE). cyanocobalamin (VITAMIN B-12) 1,000 mcg tab Take 1,000 mcg by mouth once daily. Syringe with Needle, Disp, (BD LUER-YOHANA SYRINGE) 3 mL 23 x 1 1/2 syrg Uses 4 syringes per month with testosterone injections Needle, Disp, 18 G (BD NOKOR ADMIX NEEDLE) 18 x 1 1/2 ndle Uses 4 per month to draw up testosterone from vial aspirin, enteric coated (ECOTRIN LOW STRENGTH) 81 mg ORAL EC tablet Take 1 tablet by mouth once daily. MULTIVITAMIN TAB Take one(1) tablet daily BY MOUTH. FAMILY HISTORY Problem Relation Age of Onset - Hypertension Mother - Heart Mother - Heart Father of [place] - Stroke Mother - Asthma Daughter - Allergies Mother - Allergies Father - Allergies Sister - Allergies Brother - Allergies Daughter Social History Substance Use Topics - Smoking status: Former Smoker Packs/day: 2.00 Years: 5.00 Types: Cigarettes Quit date: 02/08/1987 - Smokeless tobacco: Current User Types: Chew Comment: patient smoked for a few months in 2006 - Alcohol use 18.0 oz/week Comment: rare Review of Systems Eyes: Positive for photophobia and pain. Negative for double vision, discharge and redness. Objective Blood pressure 142/78, pulse 78, temperature 36.7 ?C (98 ?F), temperature source Tympanic, resp. rate 18, weight (!) 146.1 kg (322 lb). Component Latest Ref Rng AND Units 09/13/2017 Protein, Total 6.3 - 8.0 g/dL 7.0 Albumin 3.9 - 4.9 g/dL 4.2 Calcium 8.5 - 10.2 mg/dL 9.3 Bilirubin, Total 0.2 - 1.3 mg/dL 0.9 Alkaline Phosphatase 36 - 108 U/L 66 AST 14 - 40 U/L 23 Glucose 74 - 99 mg/dL 90 BUN 9 - 24 mg/dL 11 Creatinine 0.73 - 1.22 mg/dL 1.16 Sodium 136 - 144 mmol/L 138 Potassium 3.7 - 5.1 mmol/L 4.1 Chloride 97 - 105 mmol/L 102 CO2 22 - 30 mmol/L 22 Anion Gap 9 - 18 mmol/L 14 ALT 10 - 54 U/L 24 eGFR- >60 eGFR-All Other Races . >60 Physical Exam HENT: Right Ear: Hearing, tympanic membrane, external ear and ear canal normal. Left Ear: Hearing, tympanic membrane, external ear and ear canal normal. Mouth/Throat: Uvula is midline, oropharynx is clear and moist and mucous membranes are normal. Eyes: Pupils are equal, round, and reactive to light. Conjunctivae, EOM and lids are normal. Lymphadenopathy: Right cervical: No superficial cervical adenopathy present. Left cervical: No superficial cervical adenopathy present. ASSESSMENT/PLAN: 1. Herpes zoster without complication - ICD9: 053.9, ICD10: B02.9 -appointment made with eye doctor today - FAMCICLOVIR 500 MG TABLET Prescription instructions reviewed with patient as applicable. Patient advised if symptoms do not improve or if symptoms worsen sooner, to contact the office for further evaluation by their primary care physician. Potential red flag symptoms discussed with the patient. Reviewed appropriate action plan to take if red flag symptoms occur. Patient agreeable to treatment plan. Keely Upton APRN.SIN Referring Provider: SELF [[id number]] Allergies As of Date: 02/27/2018 Noted Allergy Reaction SULFA (SULFONAMIDE ANTIBIOTICS) 03/10/2005 2 - Rash MOTRIN (IBUPROFEN) 03/20/2012 2 - Rash 9 - Itching Date Reviewed: 02/27/2018 Reviewed by: Keely (Sin) - Fully Assessed Reason for Visit: Rash [1087] Cmt: around right eye x 2 weeks, burning sensation Visit Diagnosis:Herpes zoster without complication [B02.9] Order(s):famciclovir (FAMVIR) 500 mg tabletTake 1 tablet by mouth three times daily for 7 days.Disp: 21 tabletRfl: 0 Prescriptions as of 02/27/2018 Sig: TESTOSTERONE CYPIONATE 200 MG* INJECT 0.5 ML ONCE A WEEK DULOXETINE 30 MG CAPSULE,KELSI* TAKE 1 CAPSULE BY MOUTH ONCE * MELOXICAM 15 MG TABLET TAKE 1 TABLET BY MOUTH ONCE D* ESOMEPRAZOLE MAGNESIUM 40 MG * TAKE ONE CAPSULE BY MOUTH ONC* CHOLECALCIFEROL (VITAMIN D3) * Take 1 capsule by mouth once * POTASSIUM CHLORIDE ER 10 MEQ * Take 2 tablets by mouth once * GABAPENTIN 300 MG CAPSULE Take 1 capsule by mouth three* AMLODIPINE 5 MG TABLET TAKE ONE TABLET BY MOUTH ONCE* ALBUTEROL SULFATE HFA 90 MCG/* Inhale 2 Puffs as instructed * CYANOCOBALAMIN (VIT B-12) 1,0* Take 1,000 mcg by mouth once * SYRINGE WITH NEEDLE 3 ML 23 G* Uses 4 syringes per month wit* Patient taking differently: Inject 1 Each intramuscularly* NEEDLE (DISP) 18 GAUGE X 1 1/* Uses 4 per month to draw up t* Patient taking differently: Inject 1 Each intramuscularly* ASPIRIN 81 MG TABLET,DELAYED * Take 1 tablet by mouth once d* MULTIVITAMIN TABLET Take one(1) tablet daily BY M* FAMCICLOVIR 500 MG TABLET Take 1 tablet by mouth three * Problem List As Of Date 02/27/2018 Noted Resolved Hyperlipidemia [E78.5] INVALID FOR* Palpitations [R00.2] INVALID FOR* Shortness of breath [R06.02] INVALID FOR* Diaphragmatic hernia without mention of obstruc*INVALID FOR* Esophageal reflux [K21.9] INVALID FOR* Asbestos exposure [Z77.090] INVALID FOR* Essential hypertension, benign [I10] INVALID FOR* Pulmonary embolism (HCC) [I26.99] INVALID FOR* Hyperhydrosis disorder [R61] INVALID FOR* Low testosterone [E34.9] INVALID FOR* CAD (coronary artery disease) s/p PTCA/STENT. *INVALID FOR* Sleep apnea [G47.30] INVALID FOR* Peyronie's disease [N48.6] INVALID FOR* Impotence of organic origin [N52.9] INVALID FOR* Asthma [J45.909] INVALID FOR* More... Adrenal nodule (HCC) [E27.9] INVALID FOR* More... Lung nodule [R91.1] INVALID FOR* More... Hypokalemia [E87.6] INVALID FOR* Polyarthritis [M13.0] INVALID FOR* Prescriptions ordered this encounter Disp Refills Start End FAMCICLOVIR 500 MG TABLET 21 t* 0 02/27/2018 03/06/2018 Route: ORAL Sig: Take 1 tablet by mouth three times daily for 7 days. Medications Discontinued During This Encounter famciclovir (FAMVIR) 500 mg tablet 21 t* 0 06/04/2016 02/27/2018 Route: ORAL Sig: Take 1 tablet by mouth three times daily for 7 days. Disc: Reason for discontinue is not on file. Encounter Status:Closed by KELEY UPTON CNP on 02/27/18 EMERGENCY REPORT Observed: 11/05/2017 Status: F Source: [facility] 10:00 AM [facility] EMERGENCY ROOM REPORT NAME ACCOUNT SEX AGE ADMIT DISCHARGE PT MED. RECORD# NUMBER DATE DATE TYPE DURAN [id number] Sincere 62 10/30/17 10/30/17 3 LAZARO [id number] ROOM: ER DATE OF : 1955 DICTATING PHYSICIAN: Jagjit Souza HISTORY OF PRESENT ILLNESS: The patient came in complaining of chest discomfort. He says for the last couple of days whenever he exerts himself or even walks he has been getting chest pain, which goes into his shoulder. He has been feeling very fatigued and just not acting his normal self. He has had a history of pulmonary embolisms in the past. He has had a history of a heart attack with coronary artery disease, which he has had a stenting of apparently the LAD he states. He has not had a stress test for several years. 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 PAST MEDICAL HISTORY: TIA, hypertension. PAST SURGICAL HISTORY: Cholecystectomy, cardiac catheterization with stents, and also had right shoulder surgery. SOCIAL HISTORY: He does use chewing tobacco. He occasionally uses alcohol. REVIEW OF SYSTEMS: Ten systems reviewed and negative except as mentioned above. PHYSICAL EXAMINATION: He is afebrile. Pulse 72, respirations 20, blood pressure 156/93, and pulse ox 100% on room air. Head is normocephalic and atraumatic. Eyes: Pupils are equal, round, and reactive to light. Extraocular muscles intact. Nares are patent. Throat has adequate moisture. Uvula is midline. Neck is supple without petechiae or rash. Heart without murmur. S1 equals S2. No S3 or S4 appreciated. Lungs are clear to auscultation bilaterally. No rales, rhonchi, or retractions. Abdomen is soft, nontender, and nondistended. Skin is warm and dry. DIAGNOSTIC DATA: The patient's EKG has a rate of 68 with first-degree AV block, left axis deviation, left axis fascicular block. I see no obvious ST elevations. A second EKG showed a rate of 63, left axis deviation, left anterior fascicular block. The patient's chest x-ray was unremarkable. Cardiac markers are negative. D-dimer was normal. EMERGENCY DEPARTMENT COURSE AND TREATMENT: Because of his chest pain while he was here and he said the pain increased to a 7 out of 10, we did place him on oxygen and he was given aspirin. He said his pain feels much better at this time, and he feels great and has no pain. I was concerned he may be having unstable angina. He was placed on heparin. He was given aspirin. Page 1 of 2 LAZARO GARZON Emergency Room Report PLAN/DISPOSITION: We did try to get him transferred to [facility]; however, they do no have any beds. We are going to call his continuous mining operator, Dr. Alfred. Dictated By: Jagjit Souza DO 10/30/17 10:48 JOB #: [id number] Transcribed By: am 10/30/17 17:37 Electronically signed by: LOYD Souza D.O. 11/05/17 09:59 Page 2 of 2 LAZARO GARZON Emergency Room Report 12 LEAD ELECTROCARDIOGRAM Observed: 11/02/2017 Status: F Source: [facility] 1:13 PM [facility] REPOSITORY [facility] Cardiovascular Services [address] [place] [address] 12 Lead EKG 10/30/17 1622 MR#: [id number] Acct: [id number] Name: DURANLAZARO T Rep #: [id number] : 1955 62 From: Willis Alfred MD Attending Dr: Ai Garcia Status: DIS IN Ordering Dr: Nahum Blake DO Date: 10/30/17 Location: U Sex: M C Admitted: 10/30/17 Test Reason : ADMISSION Blood Pressure : / mmHG Vent. Rate : 057 BPM Atrial Rate : 057 BPM P-R Int : 278 ms QRS Dur : 088 ms QT Int : 392 ms P-R-T Axes : 051 -38 024 degrees QTc Int : 381 ms Sinus bradycardia with 1st degree A-V block Left axis deviation Abnormal ECG Confirmed by WILLIS ALFRED MD ([id number]), design editor ORLANDO MARKS ([id number]) on 11/02/2017 1:13:17 PM Referred By: Nahum Blake Confirmed By:WILLIS ALFRED MD 11/02/17 1313 Date Willis Alfred MD CC: Nahum Blake DO; Ai Garcia; Jagjit Cheema MD Signed 12 LEAD ELECTROCARDIOGRAM Observed: 11/02/2017 Status: F Source: [facility] 1:12 PM [facility] REPOSITORY [facility] Cardiovascular Services [address] [place] [id number] 12 Lead EKG 10/31/17516 MR#: [id number] Acct: [id number] Name: LAZARO GARZON Rep #: [id number] : 1955 62 From: Willis Alfred MD Attending Dr: Ai Garcia Status: DIS IN Ordering Dr: Willis Alfred MD Date: 10/31/17 Location: [facility] Sex: M C Admitted: 10/30/17 Test Reason : AM EKG Blood Pressure : / mmHG Vent. Rate : 061 BPM Atrial Rate : 061 BPM P-R Int : 264 ms QRS Dur : 090 ms QT Int : 398 ms P-R-T Axes : 070 -39 015 degrees QTc Int : 400 ms Sinus rhythm with 1st degree A-V block Left axis deviation Abnormal ECG Confirmed by WILLIS ALFRED MD ([id number]), design editor ORLANDO MARKS ([id number]) on 11/02/2017 1:12:47 PM Referred By: Nahum Blake Confirmed By:WILLIS ALFRED MD 11/02/17 131 Date Willis Alfred MD CC: Nahum Blake DO; Ai Garcia; Willis Alfred MD; Jagjit Cheema MD Signed DISCHARGE SUMMARY Observed: 10/31/2017 Status: F Source: [facility] 1:38 PM [facility] REPOSITORY [facility] Medical Records Department [address] [place] [address] Discharge Summary 10/31/17 1331 MR#: [id number] Acct: [id number] Name: LAZARO GARZON Rep #: [id number] : 1955 62 From: Ai Garcia MD PCP: Jagjit Cheema MD Status: ADM IN Y Location: [place] [address] Discharge Date and Diagnosis - Problem List Patient Problems: Active and Suspected Problems (Last Updated 10/30/17 @ 14:14 by Ai Garcia MD) Unstable angina (Acute) Confusion (Acute) Date of Admission: 10/30/17 Date of Discharge: 10/31/17 - Primary Discharge Diagnosis Active and Suspected Problems (Last Updated 10/30/17 @ 14:14 by Ai Garcia MD) Unstable angina (Acute) - Secondary Discharge Diagnosis Chronic Problems (Last Updated 10/30/17 @ 14:14 by Ai Garcia MD) HTN (hypertension) (Chronic) Abnormal myocardial perfusion study (Chronic) H/O percutaneous transluminal coronary angioplasty (Chronic) HLD (hyperlipidemia) (Chronic) Abnormal stress test (Chronic) DEENA (obstructive sleep apnea) (Chronic) CAD (coronary atherosclerotic disease) (Chronic) lad stent pia 08/29 Testosterone deficiency (Chronic) Obesity (Chronic) Pulmonary embolism (Chronic) Hospital Course and Treatment Operations: None Procedures: Cardiac catheterization, EKG Summary of Care Provided: Patient seen and examined on the day of discharge and appeared to be stable to be discharged home. He has no more chest pain. His vital signs are stable. Today, he is alert and related 3. - Physical Exam General: Alert, Oriented x3, Cooperative, No apparent distress. HEENT: Atraumatic, PERRLA, EOMI. Neck: Supple, No JVD, Negative Carotid Bruits, Trachea Midline, Thyroid Normal. Lungs: Clear to auscultation, Normal air movement, No rhonchi, No wheeze, No rales. Cardiovascular: Regular rate, Regular Rhythm, Normal S1, Normal S2, PMI Normal. Abdomen: Bowel Sounds Present, Soft, Non Tender, Non-Distended, No Hepato-splenomegaly. Extremities: No clubbing, No cyanosis, No edema Skin: No rashes, No breakdown Neurological: Neuro grossly intact Vital Signs are stable. Hospital course: This is a 8 years old male patient admitted directly from outside facility for unstable angina for evaluation. He has a history of CAD status post stents back in 2006. His EKG revealed no evidence of acute ischemic changes. His troponin was negative 2. His routine blood work was unremarkable. His vital signs are stable. Cardiology consulted and he underwent cardiac catheterization that revealed normal LV size and function, ejection fraction 60%, patent LAD stent and without evidence of significant CAD that requires intervention and decision was made to continue medical treatment. Patient was started on lisinopril and metoprolol in addition to his previous medications including statins and aspirin. Patient reports that he had cough with lisinopril and this was switched to losartan. Acute coronary syndrome ruled out. Patient discharged home in a stable medical condition, started on metoprolol and losartan, continued on aspirin, recommended follow-up with PCP in 1 week and follow- up with cardiology according to Dr. Alfred. Discharge Activity: Return to Normal Activity Weight Bearing Status: Weight bearing as tolerated Call your doctor if you observe: Fever of 101 or Higher, Shortness of breath, Dizziness, Fainting spells, Chest pain, Increased palpitations (irregular heartbeat), Uncontrolled pain Home Medications: Medications to take at Discharge Esomeprazole Mag Trihydrate [Nexium] 40 mg PO DAILY 10/03/13 Potassium Chloride [Klor-Con 10] 40 meq PO DAILY 10/03/13 Multivitamins,Ther W-Minerals [Multivitamin With Minerals] 1 tab PO DAILY 12/10/13 Nitroglycerin [Nitrostat] 0.4 mg SUBLINGUAL Q5M PRN 12/10/13 Testosterone Cypionate [Depo-Testosterone] 100 mg IM Q7D 12/10/13 Aspirin E.C. [Ecotrin] 81 mg PO DAILY@0800 08/17/16 Meloxicam [Mobic] 7.5 mg PO DAILY 08/17/16 amlodipine 10 mg tablet 10 mg PO QDAY 06/09/17 Duloxetine Hcl [Cymbalta] 30 mg PO DAILY 10/30/17 Gabapentin [Neurontin] 300 mg PO QHS 10/30/17 Losartan Potassium [Cozaar] 25 mg PO DAILY #30 tab 10/31/17 Metoprolol Tartrate [Lopressor (beta jacob)] 25 mg PO BID #90 tab 10/31/17 Following Prescrptions Were Given to Patient: Losartan Potassium [Cozaar] 25 mg PO DAILY #30 tab Metoprolol Tartrate [Lopressor (beta jacob)] 25 mg PO BID #90 tab Primary Care Physician: Jagjit Cheema MD [Primary Care Provider] - Please follow up with your Primary Care Physician in: 1 week. Disposition: Home Minutes spent on discharge:: 25 Patient Condition:: Stable Medical Necessity - Tobacco Use Smoking Status: Former smoker Tobacco Use: Chew Meaningful Use Info Meaningful Use Diagnoses (Choose all that apply): None applicable Code Visit Inpatient E AND M: 33305 Disch Hosp 10/31/17 1338 <Electronically signed by Ai Garcia MD> Date Ai Garcia MD Cosigner Signature (if applicable): Date CC: Ai Garcia; Willis Alfred MD; Jagjit Cheema MD Signed DISCHARGE INSTRUCTION Observed: 10/31/2017 Status: F Source: [facility] 11:30 AM [facility] REPOSITORY [facility] Medical Records Department [address] [place] [address] Instructions for Home/Discharge Instructions 10/31/17 1129 MR#: [id number] Acct: [id number] Name: DURANLAZARO Cassandra Rep #: [id number] : 1955 62 From: Ai Garcia MD PCP: Jagjit Cheema MD Status: ADM IN - Discharge Diagnoses Current Active Problems: Current Active and Chronic Problems (Last Updated 10/30/17 @ 14:14 by Ai Garcia MD) Unstable angina (Acute) Confusion (Acute) You will use the following diet at home:: Cardiac Your food should be the consistency of: Regular Discharge Activity: Return to Normal Activity Weight Bearing Status: Weight bearing as tolerated Call your doctor if you observe: Fever of 101 or Higher, Shortness of breath, Dizziness, Fainting spells, Chest pain, Increased palpitations (irregular heartbeat), Uncontrolled pain Allergies/Adverse Reactions: Allergies Sulfa (Sulfonamide Antibiotics) Allergy (Verified 06/09/17 19:41) Unknown ibuprofen [From Motrin] Adverse Reaction (Verified 06/09/17 19:41) Itching Medications to take at Discharge Esomeprazole Mag Trihydrate [Nexium] 40 mg PO DAILY 10/03/13 Potassium Chloride [Klor-Con 10] 40 meq PO DAILY 10/03/13 Multivitamins,Ther W-Minerals [Multivitamin With Minerals] 1 tab PO DAILY 12/10/13 Nitroglycerin [Nitrostat] 0.4 mg SUBLINGUAL Q5M PRN 12/10/13 Testosterone Cypionate [Depo-Testosterone] 100 mg IM Q7D 12/10/13 Aspirin E.C. [Ecotrin] 81 mg PO DAILY@0800 08/17/16 Meloxicam [Mobic] 7.5 mg PO DAILY 08/17/16 amlodipine 10 mg tablet 10 mg PO QDAY 06/09/17 Duloxetine Hcl [Cymbalta] 30 mg PO DAILY 10/30/17 Gabapentin [Neurontin] 300 mg PO QHS 10/30/17 Lisinopril [Zestril] 5 mg PO DAILY #30 tab 10/31/17 Metoprolol Tartrate [Lopressor (beta jacob)] 25 mg PO BID #90 tab 10/31/17 The following prescriptions were given: Lisinopril [Zestril] 5 mg PO DAILY #30 tab Metoprolol Tartrate [Lopressor (beta jacob)] 25 mg PO BID #90 tab Primary Care Physician: Jagjit Cheema MD [Primary Care Provider] - Please follow up with your Primary Care Physician in: 1 week. 10/31/17 1130 <Electronically signed by Ai Garcia MD> Date Ai Garcia MD CC: Willis Alfred MD; Jagjit Cheema MD PROTHROMBIN TIME W/INR Collected: 10/31/2017 Status: F Source: [facility] 5:20 AM [facility] REPOSITORY Order Comment: Comments: heart cath protocol TYPE CODE TESTS RESULT OUT OF RANGE REFERENCE UNITS LAB L300.4150 11.7-14.9 SECONDS Normal PROTIME 14.0 LAB L300.4200 Normal INR 1.1 Performed By: #### L300.3900, L300.4310 #### [facility] [address] [facility]. [place], [place], [address] PARTIAL THROMBOPLAST Collected: 10/31/2017 Status: F Source: [place] TIME 5:20 AM [facility] REPOSITORY Order Comment: Comments: heart cath protocol TYPE CODE TESTS RESULT OUT OF REFERENCE UNITS RANGE LAB L300.4310 24.1-36.2 Seconds High PTT 38.7 Performed By: #### L300.3900, L300.4310 #### [facility] [address] [place], [address] CBC-COMPLETE BLOOD CNT Collected: 10/31/2017 Status: F Source: [place] NO DIFF 5:20 AM [facility] REPOSITORY TYPE CODE TESTS RESULT OUT OF RANGE REFERENCE UNITS LAB L100.1000 4.4-11.0 K/mm3 Normal WBC 5.6 LAB L100.1200 4.6-6.2 M/mm3 Normal RBC 5.79 LAB L100.1300 13.0-16.5 g/dl Normal HGB 16.4 LAB L100.1400 40-54 % Normal HCT 47.2 LAB L100.1500 80-94 fL Normal MCV 81.5 LAB L100.1600 27.0-32.0 pg Normal MCH 28.3 LAB L100.1700 32-36 g/gl Normal MCHC 34.7 LAB L100.1810 11.6-14.6 % Normal RDW CV 13.6 LAB L100.1820 35.1-43.9 fl Normal RDW SD 40.3 LAB L100.1900 150-450 K/mm3 Low PLT 148 LAB L100.2000 6.2-12.0 fl Normal MPV 11.6 Performed By: #### L100.0500 #### [facility] [address] [facility] [place], [place], [id number] BASIC METABOLIC Collected: 10/31/2017 Status: F Source: [place] PROFILE (BMP) 5:20 AM [facility] REPOSITORY TYPE CODE TESTS RESULT OUT OF RANGE REFERENCE UNITS LAB L501.0100 74-106 mg/dL Normal GLU 94 Result Comment: Please note revised GLUCOSE reference range effective 2017. LAB L501.1000 7-18 mg/dL Normal BUN 16 LAB L501.1100 0.70-1.30 mg/dL Normal CREAT,SERUM 1.17 Result Comment: The validity of the calculated GFR AND GFRAA in patients over 70 years has not been determined. Clinical correlation is essential. LAB L501.1110 >60 mL/min Normal EST GFR 68 Result Comment: Non- GFR Calc LAB L501.1115 >60 mL/min Normal EST GFR - AA 82 Result Comment: GFR Calc LAB L501.1255 ml/min Normal Estimated CRCL 84.62 LAB L501.1300 10-20 RATIO Normal BUN/CRE 13.7 LAB L501.2200 8.5-10 mg/dL Low .1 CA 8.2 LAB L501.5300 136-14 mmol/L Normal 5 NA 141 LAB L501.5600 3.5-5. mmol/L Normal 1 K 3.6 LAB L501.5900 98-107 mmol/L Normal CL 107 LAB L501.6100 21.0-3 mmol/L Normal 2.0 CO2 26.0 LAB L501.6200 5-15 Normal GAP 8 Performed By: #### L500.2500, L500.4100, L501.9520 #### [facility] [address] [facility] [place], [place], [address] LIPID PROFILE Collected: 10/31/2017 Status: F Source: [facility] 5:20 AM [facility] REPOSITORY TYPE CODE TESTS RESULT OUT OF RANGE REFERENCE UNITS LAB L501.4900 200 mg/dL Normal CHOL 116 Result Comment: <200 mg/dL Desirable 200-240 mg/dL Borderline >240 mg/dL High Risk LAB L501.5000 mg/dL Normal TRIG 185 Result Comment: The drugs N-Acetylcysteine and Metamizole may falsely depress this assay. Serum Triglycerides Reference Interval Normal <150 mg/dL Borderline high 150 - 199 mg/dL High 200 - 499 mg/dL Very High > or = 500 mg/dL LAB L501.6400 mg/dL Low HDL 25 Result Comment: The drugs N-Acetylcysteine and Metamizole may falsely depress this assay. Reference Range HDL <40 mg/dL Low HDL Cholesterol HDL >or= 60 mg/dL High HDL Cholesterol LAB L501.6500 0-130 mg/dL Normal LDL 54 LAB L501.6600 5-40 mg/dL Normal VLDL 37 Performed By: #### L500.2500, L500.4100, L501.9520 #### [facility] [address] [facility] [place], [place], [address] THYROID STIM HORMONE Collected: 10/31/2017 Status: F Source: [facility] (TSH) 5:20 AM [facility] REPOSITORY TYPE CODE TESTS RESULT OUT OF RANGE REFERENCE UNITS LAB L501.9520 0.358-3.74 uIU/mL Normal TSH 2.89 Performed By: #### L500.2500, L500.4100, L501.9520 #### [facility] [address] [place], [address] URINALYSIS, COMPLETE Collected: 10/31/2017 Status: F Source: [place] 3:45 AM [facility] REPOSITORY Order Comment: Has pt arrived? Y Comments: heart cath protocol How was Urine Obtained? CLEAN CATCH TYPE CODE TESTS RESULT OUT OF RANGE REFERENCE UNITS LAB L400.3000 Yellow COLOR Normal Yellow LAB L400.3050 Clear Normal CLARITY Clear LAB L400.3200 Normal mg/dl Normal GLUCOSE, UR Normal LAB L400.3300 Negative mg/dL Normal BILIRUBIN URINE Negative LAB L400.3400 Negative mg/dl Normal KETONE UR Negative LAB L400.3465 1.002-1.030 Normal SP.GR. DIPSTX 1.020 LAB L400.3550 5.0 - 8.0 pH UR Normal 6.0 LAB L400.3600 Negative mg/dl PROT Normal DIPSTX Negative LAB L400.3700 Normal mg/dl Normal UROBILI Normal LAB L400.3750 Negative Normal NITRITE UR Negative LAB L400.3780 Negative /ul Normal OCCULT BLOOD-UR Negative LAB L400.3800 Negative /ul LEUK Normal ESTERASE Negative LAB L400.4050 0-5 /hpf WBC 0 Normal SEEN LAB L400.4100 0-5 /hpf 0 Normal RBC-UA SEEN LAB L400.4150 0-5 /hpf SQUAM Normal EPI 0-5 SEEN LAB L400.4300 None Seen /hpf 0 Normal BACTERIA SEEN LAB L400.4350 <or=2+ /hpf 0 Normal MUCUS, URINE SEEN Performed By: #### L400.0001 #### [facility] [address] [place], [address] CONSULTATION Observed: 10/30/2017 Status: F Source: [facility] 6:01 PM [facility] REPOSITORY [facility] Medical Records Department [address] [place] [address] Consultation 10/30/17 1747 MR#: [id number] Acct: [id number] Name: LAZARO GARZON Rep #: [id number] : 1955 62 From: Willis Alfred MD PCP: Jagjit Cheema MD Status: ADM IN Y Location: [place] [address] Problem List (1) Unstable angina Status: Acute (2) CAD (coronary atherosclerotic disease) Status: Chronic Qualifiers: Coronary Disease-Associated Artery/Lesion type: torres martinez artery Habematolel vs. transplanted heart: torres martinez heart Associated angina: with unstable angina Qualified Code(s): I25.110 - Atherosclerotic heart disease of torres martinez coronary artery with unstable angina pectoris Comment: lad stent pia 08/29 (3) H/O percutaneous transluminal coronary angioplasty Status: Chronic (4) HLD (hyperlipidemia) Status: Chronic (5) HTN (hypertension) Status: Chronic (6) Confusion Status: Acute Reason for Consult Date of Consultation: 10/30/17 History of Present Illness: The patient is a 62 year old white male with a past medical history of underlying CAD, LAD PCI, hyperlipidemia, hypertension who presents for concerns of unstable angina pectoris. He states that he has been having episodes on and off recently where he feels a chest discomfort and a smothering sensation across his chest. He has not necessarily had associated nausea, emesis, near syncope or syncope. He states he has also been getting discomfort in his left scapular area. He notes that with these episodes and sometimes separate from these episodes he can become somewhat diaphoretic. He has also had episodes where he feels somewhat dizzy or lightheaded and confused. He notes that there have been times where he cannot remember things with respect to what he is supposed to be doing. He is concerned as there is a family history of Alzheimer's dementia. He notes today he had an episode of his chest discomfort and smothering sensation. He felt he was having an DE. He went home and requested his summoned the EMS and have him taken to the local emergency department. He was evaluated at his local emergency department. His troponin I level was negative. His ECG demonstrated sinus rhythm with a first-degree AV block with left axis deviation and a possible left anterior fascicular block. He was treated medically including IV heparin. A request was made for the patient to be transferred to [facility] for further evaluation and care. He states overall he does feel better. He still feels intermittently warm. He has been somewhat anxious about his symptoms and his events. His is with him at this time. She states she notices symptoms similar to what he had prior to his previous PCI. This includes his chest discomfort and smothering sensation as well as her being more tired and fatigued than usual. He has had no episodes of orthopnea or PND. He states he recently traveled to and from [place] on work related activities. He noted while in [place] he had ankle and pedal edema. He notes that has all but resolved since returning to [place]. Since being transferred to [facility] he has had a repeat troponin I level which is negative. He had a repeat ECG which demonstrated no other acute findings. [] Past Medical History Allergies/Adverse Reactions: Allergies Sulfa (Sulfonamide Antibiotics) Allergy (Verified 06/09/17 19:41) Unknown ibuprofen [From Motrin] Adverse Reaction (Verified 06/09/17 19:41) Itching Home Medications: Ambulatory Orders Medication Instructions Recorded Esomeprazole Mag Trihydrate 40 mg PO DAILY 10/03/13 [Nexium] Potassium Chloride [Klor-Con 10] 40 meq PO DAILY 10/03/13 Multivitamins,Ther W-Minerals 1 tab PO DAILY 12/10/13 Past Medical History (Chronic Problems): Chronic Problems (Last Updated 10/30/17 @ 14:14 by Ai Garcia MD) HTN (hypertension) (Chronic) Abnormal myocardial perfusion study (Chronic) H/O percutaneous transluminal coronary angioplasty (Chronic) HLD (hyperlipidemia) (Chronic) Abnormal stress test (Chronic) DEENA (obstructive sleep apnea) (Chronic) CAD (coronary atherosclerotic disease) (Chronic) lad stent pia 08/29 Testosterone deficiency (Chronic) Obesity (Chronic) Pulmonary embolism (Chronic) Surgical History: angioplasty Psychiatric History: No pertinent psych hx - *Family History Maternal Family History: Family History (Last Updated 06/09/17 @ 19:48 by Dia Nicholson) Mother CAD (coronary artery disease) Hypertension Hx of CABG Father Hypertension Myocardial infarction Grandfather Myocardial infarction Grandmother Cancer Grandfather CAD (coronary artery disease) History Items: Heart Disease Paternal Family History: Family History (Last Updated 06/09/17 @ 19:48 by Dia Nicholson) Mother CAD (coronary artery disease) Hypertension Hx of CABG Father Hypertension Myocardial infarction Grandfather Myocardial infarction Grandmother Cancer Grandfather CAD (coronary artery disease) History Items: Heart Disease Lives: Spouse/ Significant Other Smoking Status: Former smoker Tobacco Use: Chew Alcohol: Occasional Drugs: None Review of Systems - Review of Systems General: Reports: Fatigue. Denies: Fever, Night Sweats Cardiovascular: Reports: Chest Discomfort, Chest Discomfort at Rest, Shortness of Breath, Shortness of Breath at Rest, Peripheral Edema, Lightheadedness. Denies: Orthopnea, PND, Palpitations, Dizziness, Near Syncope, Syncope Respiratory: Denies: Cough, Sputum Production, Hemoptysis Gastrointestinal: Denies: Hematemesis, Hematochezia, Melena Genitourinary: Denies: Dysuria, Hematuria Skin: Denies: Rash Subjectve: This is a 62-year-old white male who appears to be resting comfortably at the moment in no acute distress. Objective: Vital Signs Temp Pulse Resp BP Pulse Ox 98.3 F 77 16 140/75 H 97 10/30/17 13:49 10/30/17 16:06 10/30/17 13:49 10/30/17 13:49 10/30/17 15:00 Oxygen Delivery Method Room Air Weight: 315 lb 11.231 oz Body Mass Index (BMI) 37.4 General: Awake, Alert, Oriented x 3, Cooperative, No Acute Distress HEENT: Atraumatic, Normocephalic, PERRL, EOMI, Sclera Non Icteric Oral: Moist Mucosa Neck: Supple, Good ROM, No JVD Lungs: Clear to auscultation Cardiovascular: Regular Rhythm, Premature Ectopic Beats, Normal S1 Vascular: No Carotid Bruits Abdomen: Bowel Sounds Present, Soft, Non Tender Extremities: No Cyanosis, No Clubbing, No edema Neurological: No Focal Motor or Sensory Deficit Psych/Mental Status: Appropriate, Normal Affect 10/30/17 14:55: Troponin I < 0.015 10/30/17 15:28: APTT 118.3 H* Rhythm: Sinus rhythm EKG: As noted above ECHO: Giles2015: Left ventricle: Normal with an LVEF 65%; moderate concentric LVH; trivial MR; trivial TR; mild pulmonic valve insufficiency Stress Test: 07/16/2015: Xavier protocol: 8 minutes and 30 seconds achieving 87% predicted maximal heart rate with a peak blood pressure of 182/82 mmHg and a peak metabolic equivalent of 9 metabolic equivalents; peak exercise ECG with no obvious ECG changes; rare PVC during recovery; functional capacity good; no complaint of chest discomfort during exercise or recovery; examination discontinued secondary to dyspnea and leg discomfort; nuclear images compatible with soft tissue attenuation/artifact with no myocardial perfusion changes consider diagnostic for stress-induced myocardial ischemia or previous myocardial injury/infarction; gated LVEF of 62% Cardiac Cath: 12/11/2013: Left ventricle normal with an LVEF of 65%; left main coronary artery normal; LAD stent patent with minimal luminal irregularities; LCx normal; RCA being large and dominant with mid 25% stenosis PCI: 09/12/2012: [place], [place]: PTCA/drug- eluting stent to the proximal LAD Assessment/Plan 1. Unstable angina pectoris The patient presents with symptoms of relatively nonexertional and increasing in frequency chest discomfort, dyspnea, diaphoresis, and progressive fatigue. According to the patient's history this appears similar to the patient's presentation prior to a previous diagnosis of CAD and PCI. The patient has undergone noncardiac evaluation with cardiac enzymes and ECGs. They have been unremarkable for any acute changes at this time. The patient will continue to be monitored. He will continue medical management as deemed appropriate. Based upon the patient's history it was felt reasonable that patient be considered for repeat definitive evaluation at this time with diagnostic cardiac catheterization. The procedure and risks were discussed with the patient and he was agreeable to this. 2. CAD status post LAD PCI Patient does have a previous diagnosis of CAD as noted above. He has continued medical management as best as tolerated. His medications will be adjusted as needed. 3. Hyperlipidemia The patient does have a history of hyperlipidemia. He has been on lipid-lowering therapy in the past. He has had concerns of associated symptoms. His lipids will be reassessed. He may need to reattempt lipid-lowering therapy, etc., to minimize his cardiovascular risks. 4. Hypertension The patient will continue medical management with adjustment as deemed appropriate. 5. Confusion The patient has had episodes of confusion. It is unclear as to the etiology. This may be totally separate from his cardiovascular disease process, etc. He may need further noncardiac/neurology evaluation of his episodes of confusion. Comment: The above was discussed with the patient with his spouse present. This note was generated with [employer] dictation software. It may contain incorrect words, spelling, and punctuation that were not noted in checking the note before signing. 10/30/17 1801 <Electronically signed by Willis Alfred MD> Date Willis Alfred MD Cosigner Signature (if applicable): Date CC: Nahum Blake DO; Willis Alfred MD; Jagjit Cheema MD Signed TROPONIN-I Collected: 10/30/2017 Status: F Source: STEPHANI 5:51 PM [facility] [place] REPOSITORY TYPE CODE TESTS RESULT OUT OF RANGE REFERENCE UNITS LAB L501.4010 <0.045 ng/mL Normal < 0.015 TROPONIN-I Result Comment: TROPONIN-I EXPECTED VALUES <0.045 Negative 0.045 - 0.590 Consistent with Cardiac Damage > OR = 0.600 Critical Value Not every elevated troponin is indicative of DE. These values should be used with clinical judgement in examining the patient's clinical picture for diagnosis. To establish a diagnosis of DE versus myocardial injury, there must be a demonstrated rise and/or fall in the troponin values, in addition to ischemic symptoms, EKG changes, new regional wall motion abnormality, and/or angiographical evidence. PLEASE NOTE: REFERENCE RANGES EDITED 17 Performed By: #### L501.4010 #### [facility] [address] [place], [address] PARTIAL THROMBOPLAST Collected: 10/30/2017 Status: F Source: MOSCA TIME 3:28 PM [facility] REPOSITORY TYPE CODE TESTS RESULT OUT OF REFERENCE UNITS RANGE LAB L300.4310 24.1-36.2 Seconds High alert PTT 118.3 Result Comment: RESULTS CALLED TO Nik HERNANDEZ RN [facility] 10/30/17 1554 Karl Chaparro. REPORT READ BACK BY SAME. Performed By: #### L300.4310 #### [facility] [address] [place], [address] HISTORY AND PHYSICAL Observed: 10/30/2017 Status: F Source: MOSCA EXAM 2:57 PM [facility] REPOSITORY [facility] Medical Records Department [address] [place] [address] History and Physical 10/30/17 1445 MR#: [id number] Acct: [id number] Name: LAZARO GARZON Cassandra Rep #: [id number] : 1955 62 From: Nahum Blake DO PCP: Jagjit Cheema MD Status: ADM FRANNY Y Location: [place] [address] Problem List (1) Unstable angina Status: Acute (2) HTN (hypertension) Status: Chronic (3) HLD (hyperlipidemia) Status: Chronic (4) DEENA (obstructive sleep apnea) Status: Chronic (5) CAD (coronary atherosclerotic disease) Status: Chronic Comment: lad stent pia 08/29 (6) Testosterone deficiency Status: Chronic (7) Pulmonary embolism Status: Chronic History of Present Illness Date of Admission: 10/30/17 Chief Complaint: chest pain. The patient is a 62 year old M is with chest pain today. Patient was driving his car had chest pain and then started feeling diaphoretic. Patient was just very fatigued and called his and came to an outside hospital. At the hospital, the patient was started on a heparin drip and received saline. Patient's chest pain is resolved at this time. This weekend, patient was going on usually walk with his and had similar symptoms but he was also he was just very wiped out and was having some garbled speech. Patient when he had a heart attack in 2006 just felt very sick and tired for a week and was subsequently found to have had a heart attack during that time and did receive a stent. The symptoms that he had today are similar to then. [] Past Medical History Past Medical History (Chronic Problems): Chronic Problems (Last Updated 10/30/17 @ 14:14 by Ai Garcia MD) HTN (hypertension) (Chronic) Abnormal myocardial perfusion study (Chronic) H/O percutaneous transluminal coronary angioplasty (Chronic) HLD (hyperlipidemia) (Chronic) Abnormal stress test (Chronic) DEENA (obstructive sleep apnea) (Chronic) CAD (coronary atherosclerotic disease) (Chronic) lad stent pia 08/29 Testosterone deficiency (Chronic) Obesity (Chronic) Pulmonary embolism (Chronic) Allergies Sulfa (Sulfonamide Antibiotics) Allergy (Verified 06/09/17 19:41) Unknown ibuprofen [From Motrin] Adverse Reaction (Verified 06/09/17 19:41) Itching Home Medications: Ambulatory Orders Medication Instructions Recorded Esomeprazole Mag Trihydrate 40 mg PO DAILY 10/03/13 [Nexium] Potassium Chloride [Klor-Con 10] 40 meq PO DAILY 10/03/13 Multivitamins,Ther W-Minerals 1 tab PO DAILY 12/10/13 Surgical History: angioplasty Psychiatric History: No pertinent psych hx Lives: Spouse/ Significant Other Smoking Status: Former smoker Tobacco Use: Chew Alcohol: Occasional Drugs: None - *Family History Maternal History Items: Heart Disease Paternal History Items: Heart Disease Review of Systems Constitutional: Denies: Chills, Fever, Weight Change Eyes: Denies: Blurred vision, Double vision HEENT: Denies: Head Aches, Sinus Congestion, Sinus Drainage Cardiovascular: Reports: Chest Pain, Edema - Since a recent trip down to [place].. Denies: Chest Tightness, Palpitations, Syncope Respiratory: Reports: Shortness of breath at rest. Denies: Cough, Sputum production Gastrointestinal: Denies: Abdominal Pain, Nausea, Vomiting Genitourinary: Denies: Dysuria Musculoskeletal: Reports: Shoulder Pain - Left, -. Denies: Arm Pain Skin: Denies: Rash, Wounds Neurological: Denies: Numbness, Tingling, Focal weakness Psychiatric: Reports: Anxiety, Depression - Had been on Cymbalta in the past but is no longer on it. Hematologic/ Lymphatic: Reports: Hx of blood clot. Denies: Easy Bruising, Easy Bleeding VTE Information - Inpt Only VTE Present on Admission: No VTE Mechan Device Prophylaxis: None VTE Pharm Prophylaxis ordered?: Yes Patient Problems: Active and Suspected Problems (Last Updated 10/30/17 @ 14:14 by Ai Garcia MD) Unstable angina (Acute) - Physical Exam General: Alert, Cooperative, No apparent distress HEENT: Atraumatic, Normocephalic, - - No scleral icterus Oral: Moist Mucosa, No Gingival or Mucosal Lesions/ Ulcerations Neck: No Nodes, Thyroid Normal Size and Texture Lungs: Clear to auscultation, Normal air movement Cardiovascular: Regular rate, Regular Rhythm, Normal S1, Normal S2, No murmurs Abdomen: Bowel Sounds Present, Soft, Non Tender, Non-Distended, No Hepato-splenomegaly Extremities: No edema, No Calf Tenderness Skin: No rashes, No breakdown Musculoskeletal: No Tenderness to Palpation of Joints or Extremities, No Muscle Wasting Neurological: Neuro grossly intact, Motor Exam 5/5 strength throughout, Sensory exam intact to light touch and pain Psych/Mental Status: Normal Affect, Appropriate Vital Signs Temp Pulse Resp BP Pulse Ox 36.8 C 70 16 140/75 H 97 10/30/17 13:49 10/30/17 14:25 10/30/17 13:49 10/30/17 13:49 10/30/17 13:49 Oxygen Delivery Method Room Air Weight: 143.2 kg Body Mass Index (BMI) 37.4 Labs at outside hospital: PTT 29.2, INR 1.1, sodium 138, potassium 3.5, creatinine 1.1, magnesium 2, troponin 0 0.01, white blood cell 6.2, hemoglobin 7.7, platelets 137. EKG showed normal sinus rhythm with first-degree AV block but no acute changes noted. Assessment/Plan Active and Suspected Problems (Last Updated 10/30/17 @ 14:14 by Ai Garcia MD) Unstable angina (Acute) 1. Unstable angina * Currently symptom-free the patient is complaining some left shoulder pain. We will continue with anticoagulation but will transition the patient over to Lovenox from heparin. * Patient is on aspirin at home but will start patient on metoprolol and lisinopril. * Dr. Alfred has been notified by the outside ER. He will be on consultation. Tentative plan is for left heart catheterization on the . 2. Obstructive sleep apnea * Continue with CPAP at night. Patient has brought his machine in and he can use that. 3. Coronary artery disease * Patient has a stent from 2006 * Symptoms today are similar to events that occurred then * Continue with aspirin 4. Hypertension * Continue with amlodipine. * Patient does endorse that he has some swelling. Patient may wish to follow-up with his primary care physician to see if this could be related with the calcium channel jacob or not. 5. History of venous thromboembolic disease * Vision is on testosterone. Patient should follow-up with his primary care physician to see if the testosterone should be discontinued. It will be held while he is here though. 6. DVT prophylaxis: Moderate risk. Patient is already anticoagulated. Code Visit Inpatient E AND M: [id number] Init Hosp L3 10/30/17 1457 <Electronically signed by Nahum Blake DO> Date Nahum Blake DO Cosigner Signature: Date (if applicable) CC: Nahum Blake DO; Jagjit Cheema MD Signed TROPONIN-I Collected: 10/30/2017 Status: F Source: STEPHANI 2:55 PM [facility] REPOSITORY TYPE CODE TESTS RESULT OUT OF RANGE REFERENCE UNITS LAB L501.4010 <0.045 ng/mL Normal < 0.015 TROPONIN-I Result Comment: TROPONIN-I EXPECTED VALUES <0.045 Negative 0.045 - 0.590 Consistent with Cardiac Damage > OR = 0.600 Critical Value Not every elevated troponin is indicative of DE. These values should be used with clinical judgement in examining the patient's clinical picture for diagnosis. To establish a diagnosis of DE versus myocardial injury, there must be a demonstrated rise and/or fall in the troponin values, in addition to ischemic symptoms, EKG changes, new regional wall motion abnormality, and/or angiographical evidence. PLEASE NOTE: REFERENCE RANGES EDITED 17 Performed By: #### L501.4010 #### [facility] [address] [place], [address] TROPONIN Collected: 10/30/2017 Status: F Source: STAN [place] 11:50 AM [facility] TYPE CODE TESTS RESULT OUT OF REFERENCE UNITS RANGE LAB TROPONIN 0.00 - 0.05 ng/ml I(LOINC) TROPONIN I <0.01 Result Comment: Elevated troponin (above the 99th percentile) usually indicates myocardial ischemia. Results must be interpreted within the clinical setting. 1.Non-ischemic pathology can also cause elevated troponin levels (e.g., acute pulmonary embolism, myocarditis, pericarditis, heart failure, intracranial injury, rhabdomyolisis, sepsis, shock and renal insufficiency). 2.Approximately 1% of healthy adults have elevated troponin levels. 3.Analytical false positive results rarely occur(due to multiple interferences such as heterophile antibodies). Performed By: #### [id number] #### [facility],[address] [place] [address] CHEST 1 VIEW Observed: 10/30/2017 Status: F Source: STANLUIS ALFREDO WATSON[place] 9:[address] [place] [address] Patient: LAZARO GARZON Phone#: : 1955 Age: 62 Gender: M Pt. Type: ER Account: [id number] Location: [facility] Ordering: JAGJIT SOUZA Exam Date: 10/30/2017/9:06 Family Phys: Charge Code: [id number] Physician: Elliott Order #: [id number] DLP Dose#: PROCEDURE: X-RAY CHEST 1 VIEW COMPARISON: None. INDICATIONS: Chest pain FINDINGS: Image obtained in apical lordotic position, somewhat limiting the evaluation. Patient body habitus also somewhat limits evaluation. LUNGS: Normal. No significant pulmonary parenchymal abnormalities. VASCULATURE: Normal. Unremarkable pulmonary vasculature. CARDIAC: Cardiomegaly. MEDIASTINUM: Normal. No visible mass or adenopathy. PLEURA: Normal. No effusion or pleural thickening. BONES: Degenerative changes of the spine. OTHER: Monitoring leads project across the thorax. CONCLUSION: No acute disease. Dictated by: Светлана Samayoa MD on 10/30/2017 at 9:28 Approved by: Светлана Samayoa MD on 10/30/2017 at 9:28 CBC Collected: 10/30/2017 Status: F Source: STAN [place] 8:55 AM [facility] [place] REPOSITORY TYPE CODE TESTS RESULT OUT OF RANGE REFERENCE UNITS LAB CBC(LOINC) CBC Result Comment: CBC-COMPLETE BLOOD COUNT LAB WBC(LOINC) 4.5 - 10.8 x 10EE3/UL WBC 6.2 LAB RBC(LOINC) 4.50 - x 10EE6/UL 6.00 RBC High 6.19 LAB HEMOGLOBIN(LOINC 13.0 - g/dl ) 17.5 High HEMOGLOBIN 17.7 LAB HEMATOCRIT(LOINC 40.0 - % ) 52.0 HEMATOCRIT 50.5 LAB MCV(LOINC) 81 - 98 fl MCV 82 LAB MCH(LOINC) 27 - 33 pg MCH 29 LAB MCHC(LOINC) 32 - 36 X10 3 MCHC 35 LAB RDW/CV(LOINC) 12.0 - % 15.6 RDW/CV 14.5 LAB PLATELET(LOINC) 150 - 450 x10EE3/UL PLATELET Low 137 LAB MPV(LOINC) 6.4 - 10.5 fl MPV 9.4 Result Comment: AUTOMATED DIFFERENTIAL LAB NEUT %(LOINC) 46.0 - 76.0 % NEUT % 69.8 LAB LYMPH %(LOINC) 20.0 - 45.0 % LYMPH % 20.2 LAB MONOS %(LOINC) 0.0 - 10.0 % MONOS % 8.3 LAB EO %(LOINC) 0.0 - 7.0 % EO % 1.2 LAB BASO %(LOINC) 0.0 - 2.0 % BASO % 0.5 LAB Lymph #(LOINC) 0.80 - 2.80 x10EE3/U L Lymph # 1.20 LAB Neut #(LOINC) 1.50 - 7.10 x10EE3/U L Neut # 4.30 LAB Harris #(LOINC) 0.20 - 1.00 x10EE3/U L Harris # 0.50 LAB EO #(LOINC) 0.00 - 0.50 x10EE3/U L EO # 0.10 LAB Baso #(LOINC) 0.00 - 0.10 x10EE3/U L Baso # 0.00 LAB MANUAL DIFF(LOINC) MANUAL DIFF N/A LAB MORPHOLOGY(LOINC ) MORPHOLOGY N/A Result Comment: {CD] Performed By: #### [id number] #### [place] [address] TROPONIN Collected: 10/30/2017 Status: F Source: [facility] [address] [place] [address] REPOSITORY TYPE CODE TESTS RESULT OUT OF REFERENCE UNITS RANGE LAB TROPONIN 0.00 - 0.05 ng/ml I(LOINC) TROPONIN I 0.01 Result Comment: Elevated troponin (above the 99th percentile) usually indicates myocardial ischemia. Results must be interpreted within the clinical setting. 1.Non-ischemic pathology can also cause elevated troponin levels (e.g., acute pulmonary embolism, myocarditis, pericarditis, heart failure, intracranial injury, rhabdomyolisis, sepsis, shock and renal insufficiency). 2.Approximately 1% of healthy adults have elevated troponin levels. 3.Analytical false positive results rarely occur(due to multiple interferences such as heterophile antibodies). Performed By: #### [id number] #### [place] [address] CMP WITH EGFR Collected: 10/30/2017 Status: F Source: [facility] [address] [place] [address] REPOSITORY TYPE CODE TESTS RESULT OUT OF RANGE REFERENCE UNITS LAB CMP with eGFR(LOINC) CMP with eGFR Result Comment: COMPREHENSIVE METABOLIC PANEL LAB SODIUM(LOINC) 136 - 145 mmol/l SODIUM 138 LAB POTASSIUM(LOINC) 3.5 - 5.1 mmol/L POTASSIUM 3.5 LAB CHLORIDE(LOINC) 98 - 107 mmol/L CHLORIDE 103 LAB CO2(LOINC) 21.0 - mmol/L 31.0 CO2 26.2 LAB GLUCOSE(LOINC) 74 - 106 mg/dl GLUCOSE High 109 LAB BUN(LOINC) 6 - 20 mg/dl BUN 16 LAB CREATININE(LOINC) 0.7 - 1.3 mg/dl CREATININE 1.1 LAB AST/SGOT(LOINC) 13 - 39 U/L AST/SGOT 16 LAB ALK PHOS(LOINC) 38 - 126 U/L ALK PHOS 55 LAB CALCIUM(LOINC) 8.6 - mg/dl 10.2 CALCIUM 9.5 LAB TOTAL 6.4 - 8.3 g/dl PROTEIN(LOINC) TOTAL PROTEIN 6.7 LAB ALBUMIN(LOINC) 3.4 - 4.8 g/dL ALBUMIN 4.4 LAB GLOBULIN(LOINC) 1.5 - 3.8 G/DL GLOBULIN 2.3 LAB A/G RATIO(LOINC) 0.9 - 1.6 A/G High RATIO 1.9 LAB TOTAL BILI(LOINC) 0.0 - 1.5 mg/dl TOTAL BILI 1.0 LAB B/C RATIO(LOINC) 0 - 30 ratio B/C RATIO 15 LAB ALT/SGPT(LOINC) 10 - 40 U/L ALT/SGPT 19 LAB ANION GAP(LOINC) 10 - 20 mmol/L ANION GAP 12 LAB AGE(LOINC) years AGE 62 LAB eGFR(LOINC) 60 - 999 ML/MINUTE eGFR >60 LAB eGFR(AA)(LOINC) 60 - 999 ML/MINUTE eGFR(AA) >60 Result Comment: ACCORDING TO THE NATIONAL KIDNEY DISEASE EDUCATION PROGRAM(NKDE), A NORMAL eGFR IS A VALUE GREATER THAN OR EQUAL TO 60 ML/MIN/1.73 SQ METERS. CHRONIC KIDNEY DISEASE: <60mL/MIN/1.73 SQ METERS KIDNEY FAILURE: <15mL/MIN/1.73 SQ METERS THIS TEST SHOULD ONLY BE USED FOR PATIENTS 18 YEARS OF AGE AND OLDER. Performed By: #### [id number] #### [facility],[address] [place] [id number] MAGNESIUM Collected: 10/30/2017 Status: F Source: [facility] 8:55 AM [facility] [place] REPOSITORY TYPE CODE TESTS RESULT OUT OF REFERENCE UNITS RANGE LAB MAGNESIUM( 1.6 - 2.6 mg/dl LOINC) MAGNESIUM 2.0 Performed By: #### [id number] #### [place] [address] PROTHROMBIN TIME AND Collected: 10/30/2017 Status: F Source: [facility] INR 8:55 AM [facility] [place] REPOSITORY TYPE CODE TESTS RESULT OUT OF REFERENCE UNITS RANGE LAB PROTHROMBIN TIME AND INR(LOINC) PROTHROMBIN TIME AND INR Result Comment: PROTHROMBIN TIME AND INR LAB PT-COUMADIN(LOINC) sec PT-COUMADIN 12.1 LAB INR(LOINC) 0.8 - 1.2 INR 1.1 Result Comment: THE HEMOSIL THROMBOPLASTIN REAGENT USED IN THE PROTHROMBIN TIME TEST INTERACTS WITH THE DRUG CUBICIN (DAPTOMYCIN) AND WILL RESULT IN FALSELY ELEVATED PT / INR RESULTS INR INTERPRETATION INR INDICATION PREVENTION AND TREATMENT OF THROMBOEMBOLISM ASSOCIATED WITH: 2.0 - 3.0 ATRIAL FIBRILLATION, BIOPROSTHETIC HEART VALVES, PULMONARY EMBOLISM, VENOUS THROMBOSIS, SYSTEMIC EMBOLISM POST MYOCARDIAL INFARCTION 2.5 - 3.5 MECHANICAL HEART VALVES Performed By: #### [id number] #### [place] [address] APTT Collected: 10/30/2017 Status: F Source: [facility] 8:55 [facility] REPOSITORY TYPE CODE TESTS RESULT OUT OF RANGE REFERENCE UNITS LAB PTT(LOINC) 21.6 - 35.4 sec PTT 29.2 Performed By: #### [id number] #### [place] [id number] D-DIMER, QUANTITATIVE Collected: 10/30/2017 Status: F Source: [facility] 8:55 [facility] REPOSITORY TYPE CODE TESTS RESULT OUT OF REFERENCE UNITS RANGE LAB D-DIMER, QUANTITATI VE(LOINC) D-DIMER, QUANTITATIVE Result Comment: QUANT D-DIMER LAB D-DIMER QUANT(LOINC) 0 - 230 ng/ml D-DIMER QUANT 187 Performed By: #### [id number] #### [place] [id number] CBC Collected: 09/13/2017 Status: F Source: MARTÍNE[place] 10:09 [facility] REPOSITORY TYPE CODE TESTS RESULT OUT OF REFERENCE UNITS RANGE LAB WBC 3.70-11.00 k/uL WBC 5.50 LAB RBC 4.20-6.00 m/uL RBC 5.89 LAB HGB 13.0-17.0 g/dL Hemoglobin 16.5 LAB HCT 39.0-51.0 % Hematocrit 50.8 LAB MCV 80.0-100.0 fL MCV 86.2 LAB MCH 26.0-34.0 pG MCH 28.0 LAB MCHC 30.5-36.0 g/dL MCHC 32.5 LAB RDWCV 11.5-15.0 % RDW-CV 13.3 LAB PLTCT 150-400 k/uL Platelet Count 152 LAB MPV 9.0-12.7 fL MPV 11.9 LAB ABSNUC <0.01 k/uL Absolute nRBC <0.01 Performed By: #### CBC, WSR, FT4, CK, CMP, CRP, MG1, TSH, HBA1C, VITD, ANAIFS #### [facility] [address] [place] [address] SED RATE WESTERGREN Collected: 09/13/2017 Status: F Source: TEA 10:[address] [facility] REPOSITORY TYPE CODE TESTS RESULT OUT OF REFERENCE UNITS RANGE LAB WSR 0-15 mm/hr Sed Rate Westergren 2 Performed By: #### CBC, WSR, FT4, CK, CMP, CRP, MG1, TSH, HBA1C, VITD, ANAIFS #### [facility] [address] [place] [address] FREE T4 Collected: 09/13/2017 Status: F Source: TEA 10:09 [facility] REPOSITORY TYPE CODE TESTS RESULT OUT OF RANGE REFERENCE UNITS LAB FT4 0.9-1.7 ng/dL Free T4 1.0 Performed By: #### CBC, WSR, FT4, CK, CMP, CRP, MG1, TSH, HBA1C, VITD, ANAIFS #### [place] [address] [place] [address] CK Collected: 09/13/2017 Status: F Source: [facility] 10:09 [facility] REPOSITORY TYPE CODE TESTS RESULT OUT OF RANGE REFERENCE UNITS LAB CK 51-298 U/L CK 102 Result Comment: Please note the updated, gender-specific reference range for this test (effective 06/02/2016). Performed By: #### CBC, WSR, FT4, CK, CMP, CRP, MG1, TSH, HBA1C, VITD, ANAIFS #### [facility] [address] [place], [place] [address] COMP METABOLIC PANEL Collected: 09/13/2017 Status: F Source: TEA 10:09 AM [facility] REPOSITORY TYPE CODE TESTS RESULT OUT OF REFERENCE UNITS RANGE LAB TP 6.3-8.0 g/dL Protein, Total 7.0 LAB ALB 3.9-4.9 g/dL Albumin 4.2 LAB CA 8.5-10.2 mg/dL Calcium, Total 9.3 LAB TBIL 0.2-1.3 mg/dL Bilirubin, Total 0.9 LAB ALKP 36-108 U/L Alkaline Phosphatase 66 LAB AST 14-40 U/L AST 23 LAB GLU 74-99 mg/dL Glucose 90 Result Comment: The [place] [employer] Association (ADA) provides guidance for cutoff values for fasting glucose and random glucose. The ADA defines fasting as no caloric intake for at least 8 hours. Fas ting plasma glucose results between 100 to 125 mg/dL indicate increased risk for diabetes (prediabetes). Fasting plasma glucose results greater than or equal to 126 mg/dL meet the criteria for diagnosis of diabetes. In the absence of unequivocal hyperglycemia, results should be confirmed by repeat testing. In a patient with classic symptoms of hyperglycemia or hyperglycemic crisis, random plasma glucose results greater than or equal to 200 mg/dL meet the criteria for diagnosis of diabetes. Reference: Standards of Medical Care in Diabetes 2016, [place] [employer] Association. Diabetes Care. 2016.39(Suppl 1). LAB BUN 9-24 mg/dL BUN 11 LAB CRET 0.73-1.22 mg/dL Creatinine 1.16 LAB NA 136-144 mmol/L Sodium 138 LAB K 3.7-5.1 mmol/L Potassium 4.1 LAB CL 97-105 mmol/L Chloride 102 LAB CO2 22-30 mmol/L CO2 22 LAB AGAP 9-18 mmol/L Anion Gap 14 LAB ALT 10-54 U/L ALT 24 LAB GFRAA eGFR- Amer. >60 LAB GFRNAA . eGFR-All Other Races >60 Result Comment: eGFR (Estimated GFR) Units of measure: mL/min/1.73 meters squared eGFR is derived from the reexpressed MDRD Study equation using the following parameters: serum creatinine, age, gender and race. The creatinine assay has been calibrated to be traceable to IDMS. An eGFR <60 mL/min/1.73m2 for >3 months is consistent with chronic kidney disease. Refer to KDOQI guidelines for clinical interpretation. In patients with unstable renal function, e.g. those with acute kidney injury, the eGFR may not accurately reflect actual GFR. Performed By: #### CBC, WSR, FT4, CK, CMP, CRP, MG1, TSH, HBA1C, VITD, ANAIFS #### [place] [address] C-REACTIVE PROTEIN Collected: 09/13/2017 Status: F Source: TEA 10:[address] [facility] REPOSITORY TYPE CODE TESTS RESULT OUT OF REFERENCE UNITS RANGE LAB CRP <0.9 mg/dL C-Reactive 0.5 Protein Performed By: #### CBC, WSR, FT4, CK, CMP, CRP, MG1, TSH, HBA1C, VITD, ANAIFS #### [place] [address] MAGNESIUM Collected: 09/13/2017 Status: F Source: TEA 10:[address] [facility] REPOSITORY TYPE CODE TESTS RESULT OUT OF REFERENCE UNITS RANGE LAB MG 1.7-2.3 mg/dL Magnesium 2.2 Performed By: #### CBC, WSR, FT4, CK, CMP, CRP, MG1, TSH, HBA1C, VITD, ANAIFS #### [place] [address] [place], [place] [address] TSH Collected: 09/13/2017 Status: F Source: TEA 10:[address] [facility] REPOSITORY TYPE CODE TESTS RESULT OUT OF RANGE REFERENCE UNITS LAB TSH 0.400-5.500 uU/mL TSH 2.130 Performed By: #### CBC, WSR, FT4, CK, CMP, CRP, MG1, TSH, HBA1C, VITD, ANAIFS #### [facility] [address] [place], [place] [address] HEMOGLOBIN A1C Collected: 09/13/2017 Status: F Source: TEA 10:[address] [facility] REPOSITORY TYPE CODE TESTS RESULT OUT OF REFERENCE UNITS RANGE LAB HGBA1C 4.3-5.6 % Hemoglobin A1c 5.0 LAB HBA0 mg/dL Est. Average Glucose 97 Result Comment: eAG: (Estimated average glucose) is a calculated value from HgbA1c and is dairy supplies sales representative of the average blood glucose level in the last 2-3 month period. Performed By: #### CBC, WSR, FT4, CK, CMP, CRP, MG1, TSH, HBA1C, VITD, ANAIFS #### [place] [address] [place] [id number] VITAMIN D 25 HYDROXY Collected: 09/13/2017 Status: F Source: TEA 10:09 [facility] REPOSITORY TYPE CODE TESTS RESULT OUT OF REFERENCE UNITS RANGE LAB VITD 31.0-80.0 ng/mL Low Vitamin D 25 28.4 Hydroxy Result Comment: Classification of 25 [place] Vitamin D status: Insufficiency/Moderate Deficiency: < or = 30 ng/mL Sufficiency/Optimal Levels: 31 to 80 ng/mL Toxicity: > 100 ng/mL Test performed by chemiluminescent immunoassay. Performed By: #### CBC, WSR, FT4, CK, CMP, CRP, MG1, TSH, HBA1C, VITD, ANAIFS #### [place] [address] [place] [id number] AFSANEH BY IFA Collected: 09/13/2017 Status: F Source: TEA 10:09 [facility] REPOSITORY TYPE CODE TESTS RESULT OUT OF REFERENCE UNITS RANGE LAB ANASC Negative AFSANEH Negative Result Comment: Normal range : negative at <1:80 serum dilution. Approximately 6% of patients with connective tissue diseases with low positive EIA values are negative by IFA. Recommend follow-up with specific antinuclear antibodies if clinically indicated. LAB BRENDA Negative Negative AFSANEH Titer Result Comment: Normal range : negative at <1:80 serum dilution. LAB ANAP AFSANEH Not applicable Pattern for negative result. Performed By: #### CBC, WSR, FT4, CK, CMP, CRP, MG1, TSH, HBA1C, VITD, ANAIFS #### [facility] [address] [place], [place] [address] CNOV Observed: 09/13/2017 Status: COMPLETED Source: TEA 9:[address] [facility] REPOSITORY Office Visit (FAMPWS) DURANLAZARO MCFARLANE ([id number]) 1955 M Date Time Provider Department 09/13/17 9:20 AM SUSAN KERR (SIN) FAMPWS During your visit today, we recorded the following information about you: Temperature Pulse Respiration Blood pressure 98.5 degrees 78/minute 12/minute 140/76 Weight 145.2 kg Susan Kerr APRN.CNP 09/14/2017 12:45 PM Addendum This is a 61 year old male who presents today with: Patient presents with: bodyaches: patient states he has had them for years but is getting worse HISTORY OF PRESENT ILLNESS: Lazaro Trujillo Duran is a 61 year old male. Patient presents with: bodyaches: patient states he has had them for years but is getting worse Pt presents today with complaint of muscle pain. Has been having body aches for years, but it has been worse recently. Refers that it was blamed on fibromyalgia for years. Has a heard time getting in and out of car. Refer that he can hardly get up and down in the evenings. Refers yesterday, his legs starting getting molly horses. Couldn't hardly get off the ground with all the molly horses. Refers that it has gotten extreme in the last couple of months. Refers that he feels like he has lost strength in his arms and legs. Refers he will hurt just coughing, sneezing. Has tried a gabapentin at bedtime to help with symptoms -- and he does sleep well and feels better in the mornings. Doesn't use more frequency because of fatigue. Refer that he has ADD. Refers that he just doesn't feel himself. Refers that night vision isn't good. Refers eye doctor told him there is nothing wrong with his eyes. Had the ANDquot;fluANDquot; over the winter, otherwise no recent illness. REVIEW OF SYSTEMS GENERAL: No weight loss. + myalgias. No fevers/chills. HEENT: Negative for frequent or significant headaches, No changes in hearing. Worsening vision. NECK: Negative for lumps, goiter, pain and significant neck swelling RESPIRATORY: Negative for cough, hemoptysis. Hx of asthma. Wears CPAP at night. CARDIOVASCULAR: Negative for chest pain, or palpitations. Gets some dependent swelling during the day. GI: No nausea, vomiting, or diarrhea/constipation. No hematochezia/melena. : No history of dysuria, frequency or incontinence MUSCULOSKELETAL: general muscle pains. Gets spasms of muscles. SKIN: Negative for lesions, rash, and itching PSYCH: hx of being on citalopram and wellbutrin - does not feel needed currently. ENDOCRINE: Negative for cold or heat intolerance, polyuria, polydipsia and goiter NEURO: No history of headaches, syncope, paralysis, seizures or tremors PAST MEDICAL HISTORY: PAST MEDICAL HISTORY Diagnosis Date - Abdominal pain, unspecified site - Adrenal nodule (HCC) unchanged after ANDgt;2 years - Anxiety state, unspecified - Asthma childhood - CAD (coronary artery disease) - Chronic low back pain - Diaphragmatic hernia without mention of obstruction or gangrene - Diaphragmatic hernia without mention of obstruction or gangrene - Diverticulosis of colon (without mention of hemorrhage) - Esophageal reflux - Essential hypertension, benign 03/20/2012 - Fibromyalgia - Hemorrhoids - Hypogonadism male treated per urology - Impotence of organic origin - Lung nodule repeat ct in 01/02 - Palpitations - Personal history of colonic polyps 2004 polyps - Pulmonary embolism (HCC) completed treatment per pulm - Recurrent pneumonia 14 times PAST SURGICAL HISTORY Procedure Laterality Date - COLONOSCOP W/ OR W/O [facility] SPEC 2004 Colonoscopy - COLONOSCOP W/ OR W/O [facility] SPEC 03/07/11 wnl - COLONOSCOPY N/A 07/20/2016 MAC - EGD N/A 07/20/2016 MAC - EGD W/O OR W/BRUSH/WASH 05/24/2011 EGD - HEMORRHOIDECTOMY, EXTNL; COMP 04/30/15 - LAP CHOLECYSTECT/CHOLANGIOGRAPHY 2004 [facility] [place] - Dr. Hernandes - PERCUTANEOUS CORONARY INTERVENTION stent to LAD - REMOVAL ADENOIDS,PRIMARY,ANDlt;14 Y/O Adenoidectomy - REMOVAL OF TONSILS,ANDlt;14 Y/O Tonsillectomy - REPAIR ROTATOR CUFF,ACUTE Rotator cuff repair ALLERGIES Sulfa (Sulfonamide Antibiotics); Motrin [Ibuprofen] MEDICATIONS Current Outpatient Prescriptions: amLODIPine (NORVASC) 5 mg tablet TAKE ONE TABLET BY MOUTH ONCE DAILY albuterol HFA (PROAIR HFA) 90 mcg/actuation inhaler Inhale 2 Puffs as instructed every 4 hours as needed (FOR COUGH OR WHEEZE). DEPO-TESTOSTERONE 200 mg/mL injection INJECT 0.5ML ONCE WEEKLY esomeprazole (NEXIUM) 40 mg capsule Take 1 capsule by mouth once daily. cyanocobalamin (VITAMIN B-12) 1,000 mcg tab Take 1,000 mcg by mouth once daily. Cholecalciferol, Vitamin D3, (VITAMIN D-3) 5,000 unit tab Take 5,000 Units by mouth once daily. Syringe with Needle, Disp, (BD LUER-YOHANA SYRINGE) 3 mL 23 x 1 1/2ANDquot; syrg Uses 4 syringes per month with testosterone injections (Patient taking differently: Inject 1 Each intramuscularly once each week. Uses 4 syringes per month with testosterone injections) Needle, Disp, 18 G (BD NOKOR ADMIX NEEDLE) 18 x 1 1/2 ANDquot; ndle Uses 4 per month to draw up testosterone from vial (Patient taking differently: Inject 1 Each intramuscularly once each week. Uses 4 per month to draw up testosterone from vial) aspirin, enteric coated (ECOTRIN LOW STRENGTH) 81 mg ORAL EC tablet Take 1 tablet by mouth once daily. MULTIVITAMIN TAB Take one(1) tablet daily BY MOUTH. No current facility-administered medications for this visit. 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 Social History Main Topics Smoking status: Former Smoker Packs/day: 2.00 Years: 5.00 Types: Cigarettes Quit date: 02/08/1987 Smokeless status: Current User Types: Chew Comment: patient smoked for a few months in 2006 Alcohol use: Yes 18.0 oz/week Comment: rare Drug use: No Comment: marijuana in past not since 20 y/o EXAM: BP 140/76 (BP Site: Left Arm, BP Position: Sitting, BP Cuff Size: Large Adult) Pulse 78 Temp 36.9 ?C (98.5 ?F) (Left Tympanic) Resp 12 Wt (!) 145.2 kg (320 lb) BMI 37.95 kg/m2 PHYSICAL EXAM: General Appearance: Well appearing, alert, in no acute distress, well-hydrated, well nourished.. Skin: Skin color, texture, turgor normal, no suspicious rashes or lesions. Head: Normocephalic, no masses, lesions, tenderness or abnormalities. Eyes: Anicteric sclera. Pupils are equally round and reactive to light. Extraocular movements are intact. . Ears: External ears normal, canals clear, Normal TMs bilaterally. Oropharynx: Lips, mucosa, and tongue normal, teeth and gums normal, oropharynx normal. Neck: Supple, no adenopathy; thyroid symmetric, normal size. Lungs: Lungs clear to auscultation. No wheezing, rhonchi, rales. Heart: RRR without murmur, gallop, or rubs. No ectopy. Abdomen: Abdomen soft, non-tender. Bowel sounds normal. No masses, organomegaly. Extremities: No deformities, edema, skin discoloration, clubbing or cyanosis. Good capillary refill. . Musculoskeletal: No joint swelling, deformity, or tenderness. Neurologic: Gait normal. ASSESSMENT/PLAN: 1. Myalgia - ICD9: 729.1, ICD10: M79.1 (primary diagnosis) Pt with complaints of worsening myalgias and muscle spasms. Hx of fibromyalgia. Pt is taking potassium -- r/o hyperkalemia causing spasms. He is also on PPI -- r/o hypomagnesemia causing spasms. - CBC - MAGNESIUM BLD - COMP METABOLIC PANEL - CK CREATINE KINASE - VITAMIN D 25 HYDROXY - HGB A1C - AFSANEH BY IFA SCREEN (he has had negative lyme testing in the past). - SED RATE WESTERGREN - C-REACTIVE PROTEIN (CRP) Discussed with patient that we could also try cymbalta to see if that will help with his muscle pains and likely less drowsiness. He can still use a gabapentin at bedtime if needed. - DULOXETINE 30 MG CAPSULE,DELAYED RELEASE 2. Hypokalemia - ICD9: 276.8, ICD10: E87.6 - POTASSIUM CHLORIDE ER 10 MEQ TABLET,EXTENDED RELEASE 3. Fatigue, unspecified type - ICD9: 780.79, ICD10: R53.83 Wears cpap, but reports working well. Uses nasal pillows and fits well. - CBC - TSH BLD - T4 FREE/FREE THYROX - VITAMIN D 25 HYDROXY - HGB A1C Discussed treatment plan and patient voices understanding. Patient's questions answered appropriately. Medications and potential side effects were discussed and patient voices understanding. Return to the office as scheduled or as needed for worsening/no improvement. Susan Kerr APRN.SIN Kerr APRN.SIN 09/13/2017 9:53 AM Signed 1. Start the cymbalta once daily. 2. Can use the gabapentin at bedtime. 3. Labs today. Referring Provider: SELF [[id number]] Allergies As of Date: 09/13/2017 Noted Allergy Reaction SULFA (SULFONAMIDE ANTIBIOTICS) 03/10/2005 2 - Rash MOTRIN (IBUPROFEN) 03/20/2012 2 - Rash 9 - Itching Date Reviewed: 09/13/2017 Reviewed by: Annel Tomlinson Lock Installer - Fully Assessed Reason for Visit: bodyaches [Other] Cmt: patient states he has had them for years but is getting worse Primary Visit Diagnosis:Myalgia [M79.1] Other Visit Diagnoses:Hypokalemia [E87.6] Fatigue, unspecified type [R53.83] Order(s):potassium chloride (K-TAB) 10 mEq tabletTake 2 tablets by mouth once daily.Disp: 180 tabletRfl: 3 CBC [SQCBC] Order #: [id number] FUTURE TSH BLD [SQTSH] Order #: [id number] FUTURE T4 FREE/FREE THYROX [SQFT4] Order #: [id number] FUTURE MAGNESIUM BLD [SQMG1] Order #: [id number] FUTURE COMP METABOLIC PANEL [SQCMP] Order #: [id number] FUTURE CK CREATINE KINASE [SQCK] Order #: [id number] FUTURE VITAMIN D 25 HYDROXY [SQVITD] Order #: [id number] FUTURE HGB A1C [ABEZQ2A] Order #: [id number] FUTURE AFSANEH BY IFA SCREEN [SQANAIFS] Order #: [id number] FUTURE SED RATE WESTERGREN [SQWSR] Order #: [id number] FUTURE C-REACTIVE PROTEIN (CRP) [SQCRP] Order #: [id number] FUTURE DULoxetine (CYMBALTA) 30 mg capsuleTake 1 capsule by mouth once daily.Disp: 30 capsuleRfl: 2 gabapentin (NEURONTIN) 300 mg capsuleTake 1 capsule by mouth three times daily.Disp: Rfl: Prescriptions as of 09/13/2017 Sig: AMLODIPINE 5 MG TABLET TAKE ONE TABLET BY MOUTH ONCE* ALBUTEROL SULFATE HFA 90 MCG/* Inhale 2 Puffs as instructed * DEPO-TESTOSTERONE 200 MG/ML I* INJECT 0.5ML ONCE WEEKLY ESOMEPRAZOLE MAGNESIUM 40 MG * Take 1 capsule by mouth once * CYANOCOBALAMIN (VIT B-12) 1,0* Take 1,000 mcg by mouth once * SYRINGE WITH NEEDLE 3 ML 23 G* Uses 4 syringes per month wit* Patient taking differently: Inject 1 Each intramuscularly* NEEDLE (DISP) 18 GAUGE X 1 1/* Uses 4 per month to draw up t* Patient taking differently: Inject 1 Each intramuscularly* ASPIRIN 81 MG TABLET,DELAYED * Take 1 tablet by mouth once d* MULTIVITAMIN TABLET Take one(1) tablet daily BY M* POTASSIUM CHLORIDE ER 10 MEQ * Take 2 tablets by mouth once * DULOXETINE 30 MG CAPSULE,KELSI* Take 1 capsule by mouth once * GABAPENTIN 300 MG CAPSULE Take 1 capsule by mouth three* Problem List As Of Date 09/13/2017 Noted Resolved Hyperlipidemia [E78.5] INVALID FOR* Palpitations [R00.2] INVALID FOR* Shortness of breath [R06.02] INVALID FOR* Diaphragmatic hernia without mention of obstruc*INVALID FOR* Esophageal reflux [K21.9] INVALID FOR* Asbestos exposure [Z77.090] INVALID FOR* Essential hypertension, benign [I10] INVALID FOR* Pulmonary embolism (HCC) [I26.99] INVALID FOR* 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 *INVALID FOR* Sleep apnea [G47.30] INVALID FOR* Peyronie's disease [N48.6] INVALID FOR* Impotence of organic origin [N52.9] INVALID FOR* Asthma [J45.909] INVALID FOR* More... Adrenal nodule (HCC) [E27.9] INVALID FOR* More... Lung nodule [R91.1] INVALID FOR* More... Hypokalemia [E87.6] INVALID FOR* Other instructions from your clinician: 1. Start the cymbalta once daily. 2. Can use the gabapentin at bedtime. 3. Labs today. Prescriptions ordered this encounter Disp Refills Start End POTASSIUM CHLORIDE ER 10 MEQ TABLET,* 180 * 3 09/13/2017 Route: ORAL Sig: Take 2 tablets by mouth once daily. DULOXETINE 30 MG CAPSULE,DELAYED REL* 30 c* 2 09/13/2017 Route: ORAL Sig: Take 1 capsule by mouth once daily. GABAPENTIN 300 MG CAPSULE 09/13/2017 09/13/2018 Class: Med Update Route: ORAL Sig: Take 1 capsule by mouth three times daily. Medications Discontinued During This Encounter Cholecalciferol, Vitamin D3, (VITAMI* 09/13/2017 Class: Historical Med Route: ORAL Sig: Take 5,000 Units by mouth once daily. Disc: Other Level of Service: [facility] PATIENT VISIT LEVEL 4 [[id number]] Disposition: Return if symptoms worsen or fail to improve. Follow-up and Disposition History Recorded Encounter Status:Closed by SUSAN KERR CNP on 09/13/17 PROGRESS Observed: 09/13/2017 Status: COMPLETED Source: TEA 9:13 AM [facility] [place] REPOSITORY O ID: [id number] Author: Susan (Sin) Cirilo Service: (none) Author Type: Nurse Practitioner Type: Progress Notes Filed: 09/14/2017 12:45 PM Note Text: This is a 61 year old male who presents today with: Patient presents with: bodyaches: patient states he has had them for years but is getting worse HISTORY OF PRESENT ILLNESS: Lazaro Garzon is a 61 year old male. Patient presents with: bodyaches: patient states he has had them for years but is getting worse Pt presents today with complaint of muscle pain. Has been having body aches for years, but it has been worse recently. Refers that it was blamed on fibromyalgia for years. Has a heard time getting in and out of car. Refer that he can hardly get up and down in the evenings. Refers yesterday, his legs starting getting molly horses. Couldn't hardly get off the ground with all the molly horses. Refers that it has gotten extreme in the last couple of months. Refers that he feels like he has lost strength in his arms and legs. Refers he will hurt just coughing, sneezing. Has tried a gabapentin at bedtime to help with symptoms -- and he does sleep well and feels better in the mornings. Doesn't use more frequency because of fatigue. Refer that he has ADD. Refers that he just doesn't feel himself. Refers that night vision isn't good. Refers eye doctor told him there is nothing wrong with his eyes. Had the flu over the winter, otherwise no recent illness. REVIEW OF SYSTEMS GENERAL: No weight loss. + myalgias. No fevers/chills. HEENT: Negative for frequent or significant headaches, No changes in hearing. Worsening vision. NECK: Negative for lumps, goiter, pain and significant neck swelling RESPIRATORY: Negative for cough, hemoptysis. Hx of asthma. Wears CPAP at night. CARDIOVASCULAR: Negative for chest pain, or palpitations. Gets some dependent swelling during the day. GI: No nausea, vomiting, or diarrhea/constipation. No hematochezia/melena. : No history of dysuria, frequency or incontinence MUSCULOSKELETAL: general muscle pains. Gets spasms of muscles. SKIN: Negative for lesions, rash, and itching PSYCH: hx of being on citalopram and wellbutrin - does not feel needed currently. ENDOCRINE: Negative for cold or heat intolerance, polyuria, polydipsia and goiter NEURO: No history of headaches, syncope, paralysis, seizures or tremors PAST MEDICAL HISTORY: PAST MEDICAL HISTORY Diagnosis Date - Abdominal pain, unspecified site - Adrenal nodule (HCC) unchanged after >2 years - Anxiety state, unspecified - Asthma childhood - CAD (coronary artery disease) - Chronic low back pain - Diaphragmatic hernia without mention of obstruction or gangrene - Diaphragmatic hernia without mention of obstruction or gangrene - Diverticulosis of colon (without mention of hemorrhage) - Esophageal reflux - Essential hypertension, benign 03/20/2012 - Fibromyalgia - Hemorrhoids - Hypogonadism male treated per urology - Impotence of organic origin - Lung nodule repeat ct in 01/02 - Palpitations - Personal history of colonic polyps 2004 polyps - Pulmonary embolism (HCC) completed treatment per pulm - Recurrent pneumonia 14 times PAST SURGICAL HISTORY Procedure Laterality Date - COLONOSCOP W/ OR W/O [facility] SPEC 2004 Colonoscopy - COLONOSCOP W/ OR W/O [facility] SPEC 03/07/11 wnl - COLONOSCOPY N/A 07/20/2016 MAC - EGD N/A 07/20/2016 MAC - EGD W/O OR W/BRUSH/WASH 05/24/2011 EGD - HEMORRHOIDECTOMY, EXTNL; COMP 04/30/15 - LAP CHOLECYSTECT/CHOLANGIOGRAPHY 2004 [facility] [place] - Dr. Hernandes - PERCUTANEOUS CORONARY INTERVENTION stent to LAD - REMOVAL ADENOIDS,PRIMARY,<12 Y/O Adenoidectomy - REMOVAL OF TONSILS,<12 Y/O Tonsillectomy - REPAIR ROTATOR CUFF,ACUTE Rotator cuff repair ALLERGIES Sulfa (Sulfonamide Antibiotics); Motrin [Ibuprofen] MEDICATIONS Current Outpatient Prescriptions: amLODIPine (NORVASC) 5 mg tablet TAKE ONE TABLET BY MOUTH ONCE DAILY albuterol HFA (PROAIR HFA) 90 mcg/actuation inhaler Inhale 2 Puffs as instructed every 4 hours as needed (FOR COUGH OR WHEEZE). DEPO-TESTOSTERONE 200 mg/mL injection INJECT 0.5ML ONCE WEEKLY esomeprazole (NEXIUM) 40 mg capsule Take 1 capsule by mouth once daily. cyanocobalamin (VITAMIN B-12) 1,000 mcg tab Take 1,000 mcg by mouth once daily. Cholecalciferol, Vitamin D3, (VITAMIN D-3) 5,000 unit tab Take 5,000 Units by mouth once daily. Syringe with Needle, Disp, (BD LUER-YOHANA SYRINGE) 3 mL 23 x 1 1/2 syrg Uses 4 syringes per month with testosterone injections (Patient taking differently: Inject 1 Each intramuscularly once each week. Uses 4 syringes per month with testosterone injections) Needle, Disp, 18 G (BD NOKOR ADMIX NEEDLE) 18 x 1 1/2 ndle Uses 4 per month to draw up testosterone from vial (Patient taking differently: Inject 1 Each intramuscularly once each week. Uses 4 per month to draw up testosterone from vial) aspirin, enteric coated (ECOTRIN LOW STRENGTH) 81 mg ORAL EC tablet Take 1 tablet by mouth once daily. MULTIVITAMIN TAB Take one(1) tablet daily BY MOUTH. No current facility-administered medications for this visit. 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 Social History Main Topics Smoking status: Former Smoker Packs/day: 2.00 Years: 5.00 Types: Cigarettes Quit date: 02/08/1987 Smokeless status: Current User Types: Chew Comment: patient smoked for a few months in 2006 Alcohol use: Yes 18.0 oz/week Comment: rare Drug use: No Comment: marijuana in past not since 20 y/o EXAM: BP 140/76 (BP Site: Left Arm, BP Position: Sitting, BP Cuff Size: Large Adult) Pulse 78 Temp 36.9 ?C (98.5 ?F) (Left Tympanic) Resp 12 Wt (!) 145.2 kg (320 lb) BMI 37.95 kg/m2 PHYSICAL EXAM: General Appearance: Well appearing, alert, in no acute distress, well-hydrated, well nourished.. Skin: Skin color, texture, turgor normal, no suspicious rashes or lesions. Head: Normocephalic, no masses, lesions, tenderness or abnormalities. Eyes: Anicteric sclera. Pupils are equally round and reactive to light. Extraocular movements are intact. . Ears: External ears normal, canals clear, Normal TMs bilaterally. Oropharynx: Lips, mucosa, and tongue normal, teeth and gums normal, oropharynx normal. Neck: Supple, no adenopathy; thyroid symmetric, normal size. Lungs: Lungs clear to auscultation. No wheezing, rhonchi, rales. Heart: RRR without murmur, gallop, or rubs. No ectopy. Abdomen: Abdomen soft, non-tender. Bowel sounds normal. No masses, organomegaly. Extremities: No deformities, edema, skin discoloration, clubbing or cyanosis. Good capillary refill. . Musculoskeletal: No joint swelling, deformity, or tenderness. Neurologic: Gait normal. ASSESSMENT/PLAN: 1. Myalgia - ICD9: 729.1, ICD10: M79.1 (primary diagnosis) Pt with complaints of worsening myalgias and muscle spasms. Hx of fibromyalgia. Pt is taking potassium -- r/o hyperkalemia causing spasms. He is also on PPI -- r/o hypomagnesemia causing spasms. - CBC - MAGNESIUM BLD - COMP METABOLIC PANEL - CK CREATINE KINASE - VITAMIN D 25 HYDROXY - HGB A1C - AFSANEH BY IFA SCREEN (he has had negative lyme testing in the past). - SED RATE WESTERGREN - C-REACTIVE PROTEIN (CRP) Discussed with patient that we could also try cymbalta to see if that will help with his muscle pains and likely less drowsiness. He can still use a gabapentin at bedtime if needed. - DULOXETINE 30 MG CAPSULE,DELAYED RELEASE 2. Hypokalemia - ICD9: 276.8, ICD10: E87.6 - POTASSIUM CHLORIDE ER 10 MEQ TABLET,EXTENDED RELEASE 3. Fatigue, unspecified type - ICD9: 780.79, ICD10: R53.83 Wears cpap, but reports working well. Uses nasal pillows and fits well. - CBC - TSH BLD - T4 FREE/FREE THYROX - VITAMIN D 25 HYDROXY - HGB A1C Discussed treatment plan and patient voices understanding. Patient's questions answered appropriately. Medications and potential side effects were discussed and patient voices understanding. Return to the office as scheduled or as needed for worsening/no improvement. Susan Kerr APRN.CUSTOMER SERVICE CORRESPONDENCE CLERK PROGRESS Observed: 07/24/2017 Status: COMPLETED Source: TEA 1:[address] [facility] REPOSITORY [facility] ID: [id number] Author: Jagjit Cheema Service: (none) Author Type: Physician Type: Progress Notes Filed: 07/24/2017 2:11 PM Note Text: No chief complaint on file. HPI: Patient presents today for office visit for acute visit. Nursing Notes: Isabel Cottrell Ma 07/24/2017 1:50 PM Signed Patient is still complaining of chest congestion. He has burning in his lungs with breathing. He is using his inhaler about 10 times a day. He feels weak and dizzy. He has two more days of prednisone, which is helping. Still congested and short of breath. Still having some head congestion No fever or chills recently. No gi issues. Stopped most of his meds on his own. Was dizzy and felt better after stopping. MEDICATIONS: Current Outpatient Prescriptions: predniSONE (DELTASONE) 20 mg tablet Take 2 tablets by mouth once daily for 5 days. albuterol HFA (PROAIR HFA) 90 mcg/actuation inhaler Inhale 2 Puffs as instructed every 4 hours as needed (FOR COUGH OR WHEEZE). DEPO-TESTOSTERONE 200 mg/mL injection INJECT 0.5ML ONCE WEEKLY potassium chloride (K-TAB) 10 mEq tablet Take 2 tablets by mouth once daily. esomeprazole (NEXIUM) 40 mg capsule Take 1 capsule by mouth once daily. amLODIPine (NORVASC) 5 mg tablet Take 1 tablet by mouth once daily. cyanocobalamin (VITAMIN B-12) 1,000 mcg tab Take 1,000 mcg by mouth once daily. Cholecalciferol, Vitamin D3, (VITAMIN D-3) 5,000 unit tab Take 5,000 Units by mouth once daily. Syringe with Needle, Disp, (BD LUER-YOHANA SYRINGE) 3 mL 23 x 1 1/2 syrg Uses 4 syringes per month with testosterone injections (Patient taking differently: Inject 1 Each intramuscularly once each week. Uses 4 syringes per month with testosterone injections) Needle, Disp, 18 G (BD NOKOR ADMIX NEEDLE) 18 x 1 1/2 ndle Uses 4 per month to draw up testosterone from vial (Patient taking differently: Inject 1 Each intramuscularly once each week. Uses 4 per month to draw up testosterone from vial) aspirin, enteric coated (ECOTRIN LOW STRENGTH) 81 mg ORAL EC tablet Take 1 tablet by mouth once daily. MULTIVITAMIN TAB Take one(1) tablet daily BY MOUTH. atorvastatin (LIPITOR) 10 mg tablet TAKE ONE TABLET BY MOUTH ONCE DAILY allopurinol (ZYLOPRIM) 100 mg tablet Take 1 tablet by mouth once daily. For gout. meloxicam (MOBIC) 15 mg tablet Take 1 tablet by mouth daily with food. dutasteride (AVODART) 0.5 mg capsule TAKE 1 CAPSULE DAILY No current facility-administered medications for this visit. ALLERGIES: ALLERGIES Allergen Reactions - Sulfa (Sulfonamide * Rash - Motrin [Ibuprofen] Rash, Itching PAST MEDICAL HISTORY Diagnosis Date - Abdominal pain, unspecified site - Adrenal nodule (HCC) unchanged after >2 years - Anxiety state, unspecified - Asthma childhood - CAD (coronary artery disease) - Chronic low back pain - Diaphragmatic hernia without mention of obstruction or gangrene - Diaphragmatic hernia without mention of obstruction or gangrene - Diverticulosis of colon (without mention of hemorrhage) - Esophageal reflux - Essential hypertension, benign 03/20/2012 - Fibromyalgia - Hemorrhoids - Hypogonadism male treated per urology - Impotence of organic origin - Lung nodule repeat ct in 01/02 - Palpitations - Personal history of colonic polyps 2004 polyps - Pulmonary embolism (HCC) completed treatment per pulm - Recurrent pneumonia 14 times PAST SURGICAL HISTORY Procedure Laterality Date - COLONOSCOP W/ OR W/O BRS SPEC 2004 Colonoscopy - COLONOSCOP W/ OR W/O BRSH SPEC 03/07/11 wnl - COLONOSCOPY N/A 07/20/2016 MAC - EGD N/A 07/20/2016 MAC - EGD W/O OR W/BRUSH/WASH 05/24/2011 EGD - HEMORRHOIDECTOMY, EXTNL; COMP 04/30/15 - LAP CHOLECYSTECT/CHOLANGIOGRAPHY 2004 [facility] [place] - Dr. 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 REVIEW OF SYSTEMS All other reviewed and negative other than HPI. HEALTH MAINTENANCE: Reviewed health maintenance issues today and recommended the following in detail. HEPATITIS C SCREENING due on 2001 INFLUENZA-recommended VITALS: BP 148/72 Pulse 71 Temp 36.6 ?C (97.8 ?F) (Tympanic) SpO2 98% Last 4 Encounter Wt Readings: Date: Wt: 07/18/2017 142.9 kg (315 lb) 05/04/2017 142.4 kg (314 lb) 06/04/2016 142 kg (313 lb) 05/17/2016 143.8 kg (317 lb) PHYSICAL EXAMINATION: General appearance: Well appearing, alert, in no acute distress, well-hydrated, well nourished. Skin: Skin color, texture, turgor normal, no suspicious rashes or lesions Head: Normocephalic, no masses, lesions, tenderness or abnormalities Ears: External ears normal, canals clear Nose/Sinuses: Nares normal, septum midline, mucosa normal, no drainage or sinus tenderness Oropharynx: Lips, mucosa, and tongue normal, teeth and gums normal, oropharynx normal Neck: Supple, no adenopathy; thyroid symmetric, normal size, no bruits Lungs: Lungs clear to auscultation. No wheezing, rhonchi, rales Heart: RRR without murmur, gallop, or rubs. No ectopy Abdomen: Normal abdominal exam, Abdomen soft, non-tender. Bowel sounds normal. No masses, organomegaly Extremities: No deformities, edema, skin discoloration, clubbing or cyanosis. Good capillary refill. ASSESSMENT/PLAN: 1. Acute bronchitis with chronic obstructive pulmonary disease (COPD) ([facility]) - ICD9: 491.22, ICD10: J44.0, J20.9 (primary diagnosis) - decline chest xray. - Discussed risks and benefits of new medication with the patient. Advised them to call if any side effects or questions. - Call if symptoms worsen at all or if not better in one to two weeks - PREDNISONE 10 MG TABLET - Levaquin. -states this works best. Reviewed what to watch for. 2. Shortness of breath - ICD9: 786.05, ICD10: R06.02 Jagjit Cheema MD RTO in 2 to 4 weeks. PROGRESS Observed: 07/18/2017 Status: COMPLETED Source: TEA 9:[address] [facility] REPOSITORY [facility] ID: [id number] Author: Sincere Tran (KaleyC) Abhilash Service: (none) Author Type: Physician Judicial Reporter Type: Progress Notes Filed: 07/18/2017 6:39 PM Note Text: 61 year old male with c/o just getting over flu over last Week. Hurt all over. Trouble sleeping, back and legs. Nausea without vomiting. Fever t max 102.5F 2-3 days ago. Cough wheezing, choking on phlegm, up all night last night. No hemoptysis. Has had some brown sputum. Now and then. HISTORIES FAMILY HISTORY Problem Relation Age of Onset - Hypertension Mother - Heart Mother - Heart Father of [place] - Stroke Mother - Asthma Daughter - Allergies Mother - Allergies Father - Allergies Sister - Allergies Brother - Allergies Daughter PAST MEDICAL HISTORY Diagnosis Date - Abdominal pain, unspecified site - Adrenal nodule (HCC) unchanged after >2 years - Anxiety state, unspecified - Asthma childhood - CAD (coronary artery disease) - Chronic low back pain - Diaphragmatic hernia without mention of obstruction or gangrene - Diaphragmatic hernia without mention of obstruction or gangrene - Diverticulosis of colon (without mention of hemorrhage) - Esophageal reflux - Essential hypertension, benign 03/20/2012 - Fibromyalgia - Hemorrhoids - Hypogonadism male treated per urology - Impotence of organic origin - Lung nodule repeat ct in 01/02 - Palpitations - Personal history of colonic polyps 2004 polyps - Pulmonary embolism (HCC) completed treatment per pulm - Recurrent pneumonia 14 times PAST SURGICAL HISTORY Procedure Laterality Date - COLONOSCOP W/ OR W/O [facility] SPEC 2004 Colonoscopy - COLONOSCOP W/ OR W/O [facility] SPEC 03/07/11 wnl - COLONOSCOPY N/A 07/20/2016 MAC - EGD N/A 07/20/2016 MAC - EGD W/O OR W/BRUSH/WASH 05/24/2011 EGD - HEMORRHOIDECTOMY, EXTNL; COMP 04/30/15 - LAP CHOLECYSTECT/CHOLANGIOGRAPHY 2004 [facility] [place] - Dr. 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 Social History Main Topics Smoking status: Former Smoker Packs/day: 2.00 Years: 5.00 Types: Cigarettes Quit date: 02/08/1987 Smokeless status: Current User Types: Chew Comment: patient smoked for a few months in 2006 Alcohol use: Yes 18.0 oz/week Comment: rare Drug use: No Comment: marijuana in past not since 20 y/o ACTIVE PROBLEM LIST Hyperlipidemia Palpitations Shortness of Breath Diaphragmatic Hernia Without Mention of Obstruction Or Gangrene Esophageal Reflux Asbestos Exposure Essential Hypertension, Benign Pulmonary Embolism (Hcc) Hyperhydrosis Disorder Low Testosterone CAD (coronary artery disease) s/p PTCA/STENT. Sleep Apnea Peyronie's Disease Impotence of Organic Origin Asthma Adrenal Nodule (Hcc) Lung Nodule Current Outpatient Prescriptions: albuterol HFA (PROAIR HFA) 90 mcg/actuation inhaler Inhale 2 Puffs as instructed every 4 hours as needed (FOR COUGH OR WHEEZE). Disp: 1 Inhaler Rfl: 2 DEPO-TESTOSTERONE 200 mg/mL injection INJECT 0.5ML ONCE WEEKLY Disp: 10 mL Rfl: 1 potassium chloride (K-TAB) 10 mEq tablet Take 2 tablets by mouth once daily. Disp: 180 tablet Rfl: 3 esomeprazole (NEXIUM) 40 mg capsule Take 1 capsule by mouth once daily. Disp: 90 capsule Rfl: 3 amLODIPine (NORVASC) 5 mg tablet Take 1 tablet by mouth once daily. Disp: 90 tablet Rfl: 3 cyanocobalamin (VITAMIN B-12) 1,000 mcg tab Take 1,000 mcg by mouth once daily. Disp: Rfl: Cholecalciferol, Vitamin D3, (VITAMIN D-3) 5,000 unit tab Take 5,000 Units by mouth once daily. Disp: Rfl: Syringe with Needle, Disp, (BD LUER-YOHANA SYRINGE) 3 mL 23 x 1 1/2 syrg Uses 4 syringes per month with testosterone injections (Patient taking differently: Inject 1 Each intramuscularly once each week. Uses 4 syringes per month with testosterone injections) Disp: 12 Syringe Rfl: 3 aspirin, enteric coated (ECOTRIN LOW STRENGTH) 81 mg ORAL EC tablet Take 1 tablet by mouth once daily. Disp: Rfl: 0 MULTIVITAMIN TAB Take one(1) tablet daily BY MOUTH. Disp: Rfl: 0 atorvastatin (LIPITOR) 10 mg tablet TAKE ONE TABLET BY MOUTH ONCE DAILY Disp: 90 tablet Rfl: 0 allopurinol (ZYLOPRIM) 100 mg tablet Take 1 tablet by mouth once daily. For gout. Disp: 90 tablet Rfl: 3 meloxicam (MOBIC) 15 mg tablet Take 1 tablet by mouth daily with food. Disp: 90 tablet Rfl: 3 dutasteride (AVODART) 0.5 mg capsule TAKE 1 CAPSULE DAILY Disp: 90 capsule Rfl: 3 Needle, Disp, 18 G (BD NOKOR ADMIX NEEDLE) 18 x 1 1/2 ndle Uses 4 per month to draw up testosterone from vial (Patient taking differently: Inject 1 Each intramuscularly once each week. Uses 4 per month to draw up testosterone from vial) Disp: 12 Each Rfl: 3 No current facility-administered medications for this visit. HEPATITIS C SCREENING due on 2001 INFLUENZA(1) due on 02/17/2017 EXAM: OBJECTIVE: BP 130/64 Pulse 62 Temp 37.2 ?C (99 ?F) (Tympanic) Resp 12 Wt (!) 142.9 kg (315 lb) SpO2 97% BMI 37.35 kg/m2 General appearance: Pleasant overweight man in no acute distress. Mildly hoarse. Raspy cough with some phlegm. Respirations: regular, unlabored Color: pink to lips and nailbeds, normal turgor Skin: warm, dry, no unusual rashes or lesions Head: Normocephalic Eyes: sclerae and conjunctivae without injection or exudate, PERRLA, EOMI, corneal light reflex symmetric bilaterally Ears: TM's are clear/ cordero bilaterally with normal landmarks, no swelling or deformity ear canal or external ear Nose/Sinuses: Nose patent. No turbinate swelling. Active exudate: none. Maxillary and frontal sinuses nontender to percussion. Oropharynx: oral membranes are moist. Lips, mucosa, and tongue free from lesions. Gums without inflammation. Posterior pharynx no injection, no exudate, no tonsillar hypertrophy. Neck: Neck supple, no lymphadenopathy; thyroid without mass or tenderness. Chest: normally shaped, equal expansion with breaths. Lungs: Lungs clear to auscultation and percussion. No crackles or wheezes. Heart: RRR without murmur, gallop, or rubs. S1 and S2 normal. CXR pa/lat: no evidence acute disease pending radiology review ASSESSMENT/PLAN: 1. Influenza - ICD9: 487.1, ICD10: J11.1 Nasal saline, decongestant, cool mist, rest , fluids. We discussed the natural course of influenza. I suggested the patient the best the do is really rest and he agrees that he will take the next 3-4 days off from work. His employer is very amenable to sick leave. Offered cough medication but he declined. We'll continue his current medicines and follow-up if not improving over the course the next week. Sincere Hung PA-C CNOV Observed: 07/18/2017 Status: COMPLETED Source: TEA 9:[address] [facility] REPOSITORY Office Visit (FAMPWS) LAZARO GARZON ([id number]) 1955 M Date Time Provider Department 07/18/17 9:00 AM Sincere HUNG) [facility] During your visit today, we recorded the following information about you: Temperature Pulse Respiration Blood pressure 99 degrees 62/minute 12/minute 130/64 Weight 142.9 kg Sincere Hung PA-C 07/18/2017 6:39 PM Signed 61 year old male with c/o just getting over flu over last Week. Hurt all over. Trouble sleeping, back and legs. Nausea without vomiting. Fever t max 102.5F 2-3 days ago. Cough wheezing, choking on phlegm, up all night last night. No hemoptysis. Has had some brown sputum. Now and then. HISTORIES FAMILY HISTORY Problem Relation Age of Onset - Hypertension Mother - Heart Mother - Heart Father of [place] - Stroke Mother - Asthma Daughter - Allergies Mother - Allergies Father - Allergies Sister - Allergies Brother - Allergies Daughter PAST MEDICAL HISTORY Diagnosis Date - Abdominal pain, unspecified site - Adrenal nodule (HCC) unchanged after ANDgt;2 years - Anxiety state, unspecified - Asthma childhood - CAD (coronary artery disease) - Chronic low back pain - Diaphragmatic hernia without mention of obstruction or gangrene - Diaphragmatic hernia without mention of obstruction or gangrene - Diverticulosis of colon (without mention of hemorrhage) - Esophageal reflux - Essential hypertension, benign 03/20/2012 - Fibromyalgia - Hemorrhoids - Hypogonadism male treated per urology - Impotence of organic origin - Lung nodule repeat ct in 01/02 - Palpitations - Personal history of colonic polyps 2004 polyps - Pulmonary embolism (HCC) completed treatment per pulm - Recurrent pneumonia 14 times PAST SURGICAL HISTORY Procedure Laterality Date - COLONOSCOP W/ OR W/O [facility] SPEC 2004 Colonoscopy - COLONOSCOP W/ OR W/O BRSH SPEC 03/07/11 wnl - COLONOSCOPY N/A 07/20/2016 MAC - EGD N/A 07/20/2016 MAC - EGD W/O OR W/BRUSH/WASH 05/24/2011 EGD - HEMORRHOIDECTOMY, EXTNL; COMP 04/30/15 - LAP CHOLECYSTECT/CHOLANGIOGRAPHY 2004 [facility] [place] - Dr. 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 Social History Main Topics Smoking status: Former Smoker Packs/day: 2.00 Years: 5.00 Types: Cigarettes Quit date: 02/08/1987 Smokeless status: Current User Types: Chew Comment: patient smoked for a few months in 2006 Alcohol use: Yes 18.0 oz/week Comment: rare Drug use: No Comment: marijuana in past not since 20 y/o ACTIVE PROBLEM LIST Hyperlipidemia Palpitations Shortness of Breath Diaphragmatic Hernia Without Mention of Obstruction Or Gangrene Esophageal Reflux Asbestos Exposure Essential Hypertension, Benign Pulmonary Embolism (Hcc) Hyperhydrosis Disorder Low Testosterone CAD (coronary artery disease) s/p PTCA/STENT. Sleep Apnea Peyronie's Disease Impotence of Organic Origin Asthma Adrenal Nodule (Hcc) Lung Nodule Current Outpatient Prescriptions: albuterol HFA (PROAIR HFA) 90 mcg/actuation inhaler Inhale 2 Puffs as instructed every 4 hours as needed (FOR COUGH OR WHEEZE). Disp: 1 Inhaler Rfl: 2 DEPO-TESTOSTERONE 200 mg/mL injection INJECT 0.5ML ONCE WEEKLY Disp: 10 mL Rfl: 1 potassium chloride (K-TAB) 10 mEq tablet Take 2 tablets by mouth once daily. Disp: 180 tablet Rfl: 3 esomeprazole (NEXIUM) 40 mg capsule Take 1 capsule by mouth once daily. Disp: 90 capsule Rfl: 3 amLODIPine (NORVASC) 5 mg tablet Take 1 tablet by mouth once daily. Disp: 90 tablet Rfl: 3 cyanocobalamin (VITAMIN B-12) 1,000 mcg tab Take 1,000 mcg by mouth once daily. Disp: Rfl: Cholecalciferol, Vitamin D3, (VITAMIN D-3) 5,000 unit tab Take 5,000 Units by mouth once daily. Disp: Rfl: Syringe with Needle, Disp, (BD LUER-YOHANA SYRINGE) 3 mL 23 x 1 1/2ANDquot; syrg Uses 4 syringes per month with testosterone injections (Patient taking differently: Inject 1 Each intramuscularly once each week. Uses 4 syringes per month with testosterone injections) Disp: 12 Syringe Rfl: 3 aspirin, enteric coated (ECOTRIN LOW STRENGTH) 81 mg ORAL EC tablet Take 1 tablet by mouth once daily. Disp: Rfl: 0 MULTIVITAMIN TAB Take one(1) tablet daily BY MOUTH. Disp: Rfl: 0 atorvastatin (LIPITOR) 10 mg tablet TAKE ONE TABLET BY MOUTH ONCE DAILY Disp: 90 tablet Rfl: 0 allopurinol (ZYLOPRIM) 100 mg tablet Take 1 tablet by mouth once daily. For gout. Disp: 90 tablet Rfl: 3 meloxicam (MOBIC) 15 mg tablet Take 1 tablet by mouth daily with food. Disp: 90 tablet Rfl: 3 dutasteride (AVODART) 0.5 mg capsule TAKE 1 CAPSULE DAILY Disp: 90 capsule Rfl: 3 Needle, Disp, 18 G (BD NOKOR ADMIX NEEDLE) 18 x 1 1/2 ANDquot; ndle Uses 4 per month to draw up testosterone from vial (Patient taking differently: Inject 1 Each intramuscularly once each week. Uses 4 per month to draw up testosterone from vial) Disp: 12 Each Rfl: 3 No current facility-administered medications for this visit. HEPATITIS C SCREENING due on 2001 INFLUENZA(1) due on 02/17/2017 EXAM: OBJECTIVE: BP 130/64 Pulse 62 Temp 37.2 ?C (99 ?F) (Tympanic) Resp 12 Wt (!) 142.9 kg (315 lb) SpO2 97% BMI 37.35 kg/m2 General appearance: Pleasant overweight man in no acute distress. Mildly hoarse. Raspy cough with some phlegm. Respirations: regular, unlabored Color: pink to lips and nailbeds, normal turgor Skin: warm, dry, no unusual rashes or lesions Head: Normocephalic Eyes: sclerae and conjunctivae without injection or exudate, PERRLA, EOMI, corneal light reflex symmetric bilaterally Ears: TM's are clear/ cordero bilaterally with normal landmarks, no swelling or deformity ear canal or external ear Nose/Sinuses: Nose patent. No turbinate swelling. Active exudate: none. Maxillary and frontal sinuses nontender to percussion. Oropharynx: oral membranes are moist. Lips, mucosa, and tongue free from lesions. Gums without inflammation. Posterior pharynx no injection, no exudate, no tonsillar hypertrophy. Neck: Neck supple, no lymphadenopathy; thyroid without mass or tenderness. Chest: normally shaped, equal expansion with breaths. Lungs: Lungs clear to auscultation and percussion. No crackles or wheezes. Heart: RRR without murmur, gallop, or rubs. S1 and S2 normal. CXR pa/lat: no evidence acute disease pending radiology review ASSESSMENT/PLAN: 1. Influenza - ICD9: 487.1, ICD10: J11.1 Nasal saline, decongestant, cool mist, rest , fluids. We discussed the natural course of influenza. I suggested the patient the best the do is really rest and he agrees that he will take the next 3-4 days off from work. His employer is very amenable to sick leave. Offered cough medication but he declined. We'll continue his current medicines and follow-up if not improving over the course the next week. SIMON West PA-C 07/18/2017 9:22 AM Signed Flu (Influenza) What is influenza? Influenza (also called flu) is a viral infection of the nose, throat, trachea, and bronchi (air passages). Outbreaks of flu occur almost every year, usually in late fall and winter. Flu viruses cause more severe symptoms and can cause more severe medical problems than cold viruses. Older adults, people whose immune systems are impaired, and people with chronic medical problems are particularly at risk for more severe flu symptoms or complications. How does it occur? The flu virus is almost always spread from person to person by droplets that are coughed or sneezed into the air. It can also be spread by the hands of an infected person who has touched their mouth or nose. What are the symptoms? Influenza tends to start suddenly. You may feel fine one hour and have a high fever the next. The usual first symptoms are: chills and fever (often 101 to 103?F, or 38 to 40?C) sweating muscle aches headache. Symptoms soon to follow may include: runny nose and nasal congestion cough sore throat eyes sensitive to light. How is it diagnosed? Influenza can usually be diagnosed from your symptoms. Your healthcare provider may examine you to rule out other types of infection, such as strep throat and sinusitis. How is it treated? Usually you will recognize the symptoms and can manage them at home. It is a good idea to speak to your healthcare provider if you have symptoms of the flu and: You have heart disease, asthma, chronic bronchitis, kidney disease, diabetes, or another chronic medical problem. Your immune system does not work normally (for example, because you are taking steroids for another medical problem). Your symptoms become more severe, you have a painful cough, you are coughing up phlegm, or you are having trouble breathing. This may indicate you have pneumonia or bronchitis. To take care of yourself at home: Get plenty of rest. Drink a lot of liquids. Water, juice, and noncaffeinated drinks are best. Especially when you have a high fever, your body needs much more liquid than when you are healthy. Having enough fluids also helps the mucus in your sinuses and lungs to stay thin and easy to clear from the body. When the mucus is thin, it is less likely to cause a sinus infection or bronchitis. Consider taking acetaminophen or ibuprofen to relieve headaches and muscle aches and to lower a fever. (Do NOT use aspirin if you have the flu.) Some healthcare providers feel that because fever is part of the immune system's reaction to infection, it is better to let a fever run its course than to try to lower it. Letting the fever run its course, however, can be dangerous in children and older adults. Also, most healthy adults feel much better if the fever is decreased even just 1 or 2 degrees. If your nose or sinuses become congested, a decongestant medicine may help you feel better and may possibly help prevent ear or sinus infections. Take cough medicine to help control your cough. Antihistamine medicine can be helpful if a runny nose is making it hard for you to sleep. However, antihistamine has a very drying effect and may cause the mucus in your nose, throat, and lungs to become thick and dry. There are medicines your healthcare provider can prescribe that can make flu symptoms less severe. They may also help the symptoms not last as long. Examples of these drugs are amantadine (Symadine or Symmetrel), rimantadine (Flumadine), zanamivir (Relenza), and oseltamivir (Tamiflu). These flu medicines are available as tablets or nasal sprays. They must be started within the first 48 hours of illness to be effective. Usually they need to be taken only a few days. A common side effect of the tablets is lightheadedness or dizziness. How long will the effects last? Flu symptoms usually last 3 to 7 days. They often start improving gradually after the first 2 days or so. Infection with the flu virus often leads to other infections, such as ear, sinus, and bronchial infections. Pneumonia can also occur as a result of the flu. It can be caused by the flu virus itself or by bacteria invading lung tissues that have been damaged by the virus. Pneumonia is a common cause of in people over the age of 65 and often occurs during and after flu outbreaks. An unusual complication of flu is Blake's syndrome, which usually occurs in children and adolescents and rarely occurs in adults. Blake's syndrome is not well understood but it involves failure of the liver and brain swelling, which together can lead to coma and sometimes . A link has been shown between the use of aspirin during influenza illness and the development of Blake's syndrome. For this reason it is best to avoid taking aspirin and other salicylates when you have the flu. What can I do to prevent influenza? Flu shots help prevent the flu. Because the flu virus strain varies from year to year, you need to get a new flu shot each year. March is the best time to get vaccinated, but you can still get vaccinated in April and later. Flu season can begin as early as March and last as late as October. Flu seasons can vary from region to region. If you are at high risk for infection and plan to travel to an area where you might be exposed to the flu, make sure you have an up-to-date flu shot before you go on your trip. Flu shots are usually about 70% effective in preventing flu. If you do get the flu even though you had your annual shot, the vaccine helps protect against severe and possibly life-threatening infection. A new alternative to flu shots is FluMist. It is a nasal spray form of the vaccine for healthy adults under 50 years of age. It costs more than the shot. As with flu shots, you will need a new dose of FluMist every year. women cannot take the nasal spray. Also, people with certain other medical conditions should not take FluMist. If you are considering using FluMist, ask your provider if it is recommended for you. If a flu outbreak has begun and you have not had the flu vaccine and need some protection, your healthcare provider may prescribe medicine that can decrease your chances of getting the flu during the outbreak. You will need to take these medicines for at least 2 weeks after you are vaccinated. If you don't get the vaccine, you need to take the medicine until the flu outbreak has left your community, which may be several weeks. If you do get the flu, the medicines can make your symptoms less severe. The simplest, oldest method of avoiding spread of infection is frequent hand washing, preferably with antibacterial soap from a sanitary dispenser. It is also a good practice not to eat in or near your workplace. Your hands or food might be contaminated with the virus particles from co-workers, customers, or schoolchildren, depending on your place of work. Published by [employer]. This content is reviewed periodically and is subject to change as new health information becomes available. The information is intended to inform and educate and is not a replacement for medical evaluation, advice, diagnosis or treatment by a healthcare professional. Developed by [employer] Copyright ? 2007 [employer] and/or one of its subsidiaries. All Rights Reserved. Special Instructions: Rest, push fluids. Call if fever ANDgt; 100.5F, painful respiration, change in production or blood. Copyright ? Clinical Reference Systems 2007 [employer] Copyright ? 2007 [employer]. All rights reserved. - www.Buz Referring Provider: SELF [200] Allergies As of Date: 07/18/2017 Noted Allergy Reaction SULFA (SULFONAMIDE ANTIBIOTICS) 03/10/2005 2 - Rash MOTRIN (IBUPROFEN) 03/20/2012 2 - Rash 9 - Itching Date Reviewed: 07/18/2017 Reviewed by: Estrella Hoang LPN - Fully Assessed Reason for Visit: Cough [28] Cmt: productive at times started about 1 week ago with c/o lungs burning Fever [47] Cmt: 102.5 at the highest with body aches Sinus Problem [99] Cmt: sinus pressure and headache Reason For Visit History Recorded Primary Visit Diagnosis:Influenza [J11.1] Prescriptions as of 07/18/2017 Sig: ALBUTEROL SULFATE HFA 90 MCG/* Inhale 2 Puffs as instructed * DEPO-TESTOSTERONE 200 MG/ML I* INJECT 0.5ML ONCE WEEKLY POTASSIUM CHLORIDE ER 10 MEQ * Take 2 tablets by mouth once * ESOMEPRAZOLE MAGNESIUM 40 MG * Take 1 capsule by mouth once * AMLODIPINE 5 MG TABLET Take 1 tablet by mouth once d* CYANOCOBALAMIN (VIT B-12) 1,0* Take 1,000 mcg by mouth once * CHOLECALCIFEROL (VITAMIN D3) * Take 5,000 Units by mouth onc* SYRINGE WITH NEEDLE 3 ML 23 G* Uses 4 syringes per month wit* Patient taking differently: Inject 1 Each intramuscularly* ASPIRIN 81 MG TABLET,DELAYED * Take 1 tablet by mouth once d* MULTIVITAMIN TABLET Take one(1) tablet daily BY M* ATORVASTATIN 10 MG TABLET TAKE ONE TABLET BY MOUTH ONCE* ALLOPURINOL 100 MG TABLET Take 1 tablet by mouth once d* MELOXICAM 15 MG TABLET Take 1 tablet by mouth daily * DUTASTERIDE 0.5 MG CAPSULE TAKE 1 CAPSULE DAILY NEEDLE (DISP) 18 GAUGE X 1 1/* Uses 4 per month to draw up t* Patient taking differently: Inject 1 Each intramuscularly* Medication notes this encounter ATORVASTATIN 10 MG TABLET >> Estrella Hoang LPN 07/18/2017 8:51 AM >> ESTRELLA HOANG LPN nik Jul 18, 2017 8:51 AM Patient stopped taking ALLOPURINOL 100 MG TABLET >> Estrella Hoang LPN 07/18/2017 8:51 AM >> ESTRELLA HOANG LPN MonJul 18, 2017 8:51 AM Patient stopped taking trying to control with diet MELOXICAM 15 MG TABLET >> Estrella Hoang LPN 07/18/2017 8:53 AM >> ESTRELLA HOANG LPN MonJul 18, 2017 8:53 AM Patient stopped taking DUTASTERIDE 0.5 MG CAPSULE >> Estrella Hoang LPN 07/18/2017 8:53 AM >> ESTRELLA HOANG LPN MonJul 18, 2017 8:53 AM Patient stopped taking Problem List As Of Date 07/18/2017 Noted Resolved Hyperlipidemia [E78.5] INVALID FOR* Palpitations [R00.2] INVALID FOR* Shortness of breath [R06.02] INVALID FOR* Diaphragmatic hernia without mention of obstruc*INVALID FOR* Esophageal reflux [K21.9] INVALID FOR* Asbestos exposure [Z77.090] INVALID FOR* Essential hypertension, benign [I10] INVALID FOR* Pulmonary embolism (HCC) [I26.99] INVALID FOR* 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 *INVALID FOR* Sleep apnea [G47.30] INVALID FOR* Peyronie's disease [N48.6] INVALID FOR* Impotence of organic origin [N52.9] INVALID FOR* Asthma [J45.909] INVALID FOR* More... Adrenal nodule (HCC) [E27.9] INVALID FOR* More... Lung nodule [R91.1] INVALID FOR* More... Other instructions from your clinician: Flu (Influenza) What is influenza? Influenza (also called flu) is a viral infection of the nose, throat, trachea, and bronchi (air passages). Outbreaks of flu occur almost every year, usually in late fall and winter. Flu viruses cause more severe symptoms and can cause more severe medical problems than cold viruses. Older adults, people whose immune systems are impaired, and people with chronic medical problems are particularly at risk for more severe flu symptoms or complications. How does it occur? The flu virus is almost always spread from person to person by droplets that are coughed or sneezed into the air. It can also be spread by the hands of an infected person who has touched their mouth or nose. What are the symptoms? Influenza tends to start suddenly. You may feel fine one hour and have a high fever the next. The usual first symptoms are: chills and fever (often 101 to 103?F, or 38 to 40?C) sweating muscle aches headache. Symptoms soon to follow may include: runny nose and nasal congestion cough sore throat eyes sensitive to light. How is it diagnosed? Influenza can usually be diagnosed from your symptoms. Your healthcare provider may examine you to rule out other types of infection, such as strep throat and sinusitis. How is it treated? Usually you will recognize the symptoms and can manage them at home. It is a good idea to speak to your healthcare provider if you have symptoms of the flu and: You have heart disease, asthma, chronic bronchitis, kidney disease, diabetes, or another chronic medical problem. Your immune system does not work normally (for example, because you are taking steroids for another medical problem). Your symptoms become more severe, you have a painful cough, you are coughing up phlegm, or you are having trouble breathing. This may indicate you have pneumonia or bronchitis. To take care of yourself at home: Get plenty of rest. Drink a lot of liquids. Water, juice, and noncaffeinated drinks are best. Especially when you have a high fever, your body needs much more liquid than when you are healthy. Having enough fluids also helps the mucus in your sinuses and lungs to stay thin and easy to clear from the body. When the mucus is thin, it is less likely to cause a sinus infection or bronchitis. Consider taking acetaminophen or ibuprofen to relieve headaches and muscle aches and to lower a fever. (Do NOT use aspirin if you have the flu.) Some healthcare providers feel that because fever is part of the immune system's reaction to infection, it is better to let a fever run its course than to try to lower it. Letting the fever run its course, however, can be dangerous in children and older adults. Also, most healthy adults feel much better if the fever is decreased even just 1 or 2 degrees. If your nose or sinuses become congested, a decongestant medicine may help you feel better and may possibly help prevent ear or sinus infections. Take cough medicine to help control your cough. Antihistamine medicine can be helpful if a runny nose is making it hard for you to sleep. However, antihistamine has a very drying effect and may cause the mucus in your nose, throat, and lungs to become thick and dry. There are medicines your healthcare provider can prescribe that can make flu symptoms less severe. They may also help the symptoms not last as long. Examples of these drugs are amantadine (Symadine or Symmetrel), rimantadine (Flumadine), zanamivir (Relenza), and oseltamivir (Tamiflu). These flu medicines are available as tablets or nasal sprays. They must be started within the first 48 hours of illness to be effective. Usually they need to be taken only a few days. A common side effect of the tablets is lightheadedness or dizziness. How long will the effects last? Flu symptoms usually last 3 to 7 days. They often start improving gradually after the first 2 days or so. Infection with the flu virus often leads to other infections, such as ear, sinus, and bronchial infections. Pneumonia can also occur as a result of the flu. It can be caused by the flu virus itself or by bacteria invading lung tissues that have been damaged by the virus. Pneumonia is a common cause of in people over the age of 65 and often occurs during and after flu outbreaks. An unusual complication of flu is Blake's syndrome, which usually occurs in children and adolescents and rarely occurs in adults. Blake's syndrome is not well understood but it involves failure of the liver and brain swelling, which together can lead to coma and sometimes . A link has been shown between the use of aspirin during influenza illness and the development of Blake's syndrome. For this reason it is best to avoid taking aspirin and other salicylates when you have the flu. What can I do to prevent influenza? Flu shots help prevent the flu. Because the flu virus strain varies from year to year, you need to get a new flu shot each year. March is the best time to get vaccinated, but you can still get vaccinated in April and later. Flu season can begin as early as March and last as late as October. Flu seasons can vary from region to region. If you are at high risk for infection and plan to travel to an area where you might be exposed to the flu, make sure you have an up-to-date flu shot before you go on your trip. Flu shots are usually about 70% effective in preventing flu. If you do get the flu even though you had your annual shot, the vaccine helps protect against severe and possibly life-threatening infection. A new alternative to flu shots is FluMist. It is a nasal spray form of the vaccine for healthy adults under 50 years of age. It costs more than the shot. As with flu shots, you will need a new dose of FluMist every year. women cannot take the nasal spray. Also, people with certain other medical conditions should not take FluMist. If you are considering using FluMist, ask your provider if it is recommended for you. If a flu outbreak has begun and you have not had the flu vaccine and need some protection, your healthcare provider may prescribe medicine that can decrease your chances of getting the flu during the outbreak. You will need to take these medicines for at least 2 weeks after you are vaccinated. If you don't get the vaccine, you need to take the medicine until the flu outbreak has left your community, which may be several weeks. If you do get the flu, the medicines can make your symptoms less severe. The simplest, oldest method of avoiding spread of infection is frequent hand washing, preferably with antibacterial soap from a sanitary dispenser. It is also a good practice not to eat in or near your workplace. Your hands or food might be contaminated with the virus particles from co-workers, customers, or schoolchildren, depending on your place of work. ----- Published by [employer]. This content is reviewed periodically and is subject to change as new health information becomes available. The information is intended to inform and educate and is not a replacement for medical evaluation, advice, diagnosis or treatment by a healthcare professional. Developed by [employer] Copyright ? 2006 [employer] and/or one of its subsidiaries. All Rights Reserved. Special Instructions: Rest, push fluids. Call if fever > 100.5F, painful respiration, change in production or blood. Copyright ? Clinical Reference Systems 2007 [employer] Copyright ? 2007 [employer]. All rights reserved. - www.Buz Medications Discontinued During This Encounter benzonatate (TESSALON PERLE) 100 mg * 30 c* 0 05/12/2017 07/18/2017 Route: ORAL Sig: Take 1 capsule by mouth three times daily as needed for Cough. Disc: Reason for discontinue is not on file. benzonatate (TESSALON PERLES) 100 mg* 30 c* 0 09/26/2016 07/18/2017 Route: ORAL Sig: Take 1 capsule by mouth three times daily as needed. Disc: Reason for discontinue is not on file. buPROPion XL (WELLBUTRIN XL) 150 mg * 90 t* 3 09/16/2016 07/18/2017 Route: ORAL Sig: Take 1 tablet by mouth once daily. Disc: Reason for discontinue is not on file. citalopram (CELEXA) 20 mg tablet 30 t* 5 01/17/2017 07/18/2017 Route: ORAL Sig: Take 1 tablet by mouth once daily. Disc: Reason for discontinue is not on file. doxycycline monohydrate 100 mg tablet 20 t* 0 05/04/2017 07/18/2017 Route: ORAL Sig: Take 1 tablet by mouth twice daily. Disc: Reason for discontinue is not on file. fluticasone (FLOVENT HFA) 110 mcg/ac* 1 In* 5 02/05/2016 07/18/2017 Route: INHALATION Sig: Inhale 1 Puff as instructed twice daily. Disc: Reason for discontinue is not on file. Encounter Status:Closed by Sincere HUNG PA-C on 07/18/17 LIVER PROFILE Collected: 07/18/2017 Status: F Source: STEPHANI 8:25 AM [facility] REPOSITORY Order Comment: Order Date: 12/16/16 Order Info: [id number] - *Hepatic Function Panel Order Info: [id number] - *Lipid Profile CC PCP Comments: 12 hours fasting, may have water. TYPE CODE TESTS RESULT OUT OF RANGE REFERENCE UNITS LAB L501.1500 6.4-8.2 g/dL Normal T PROT 6.7 LAB L501.1800 3.2-5.0 g/dL Normal ALB 3.4 LAB L501.1950 2.2-4.2 g/dL Normal GLOB 3.3 LAB L501.4100 15-37 U/L Normal AST 27 LAB L501.4305 45-117 U/L Normal ALK P 59 LAB L501.4405 16-61 U/L Normal ALT 32 Result Comment: Please note revised ALT reference range effective 2017. LAB L501.4600 0.20-1.00 mg/dL Normal T BILI 0.70 LAB L501.4700 0.00-0.30 mg/dL Normal D BILI 0.16 Performed By: #### L500.3400 #### [facility] [address] [place], [place], [address] LIPID PROFILE Collected: 07/18/2017 Status: F Source: MOSCA 8:25 AM [facility] REPOSITORY Order Comment: Order Date: 12/16/16 Order Info: [id number] - *Hepatic Function Panel Order Info: [id number] - *Lipid Profile CC PCP Comments: 12 hours fasting, may have water. TYPE CODE TESTS RESULT OUT OF RANGE REFERENCE UNITS LAB L501.4900 200 mg/dL Normal CHOL 88 Result Comment: <200 mg/dL Desirable 200-240 mg/dL Borderline >240 mg/dL High Risk LAB L501.5000 mg/dL Normal TRIG 138 Result Comment: The drugs N-Acetylcysteine and Metamizole may falsely depress this assay. Serum Triglycerides Reference Interval Normal <150 mg/dL Borderline high 150 - 199 mg/dL High 200 - 499 mg/dL Very High > or = 500 mg/dL LAB L501.6400 mg/dL Low HDL 30 Result Comment: The drugs N-Acetylcysteine and Metamizole may falsely depress this assay. Reference Range HDL <40 mg/dL Low HDL Cholesterol HDL >or= 60 mg/dL High HDL Cholesterol LAB L501.6500 0-130 mg/dL Normal LDL 30 LAB L501.6600 5-40 mg/dL Normal VLDL 28 Performed By: #### L500.4100 #### [facility] [address] [place], [address] ALLERGIES ALLERGIES DATE TYPE / CODE NAME / CODE REACTION SEVERITY SOURCE 06/25/2018 Drug Sulfa Unknown Unknown [facility] Allergy/416 (Sulfonamide Hospital 062910(SNOM Antibiotics)/F00 Repository ED CT) 7523392(RXNORM) 06/25/2018 Drug ibuprofen/Z03475 Itching Unknown [facility] Allergy/416 2377(RXNORM) Hospital 388381(SNOM Repository ED CT) 03/20/2012 DRUG IBUPROFEN RASH [facility] INGREDI/[address] [place] 353148(SNOM Repository ED CT) 03/10/2005 Drug SULFA RASH High [facility] Class/84948 (SULFONAMIDE [place] 1003(SNOMED ANTIBIOTICS) Repository CT) Drug SULFA Moderate [facility] [place] Allergy/416 (sulfonamide)/00 ([facility] 669470(SNOM 080314(RXNORM) Modifier) Repository ED CT) (Qualifier Value) ENCOUNTERS ENCOUNTERS ADMIT/DISCHARGE ACCOUNT ADMITTING ENCOUNTER LOCATION SOURCE NUMBER CLASS 07/13/2018/07/13/19 [id number] Ambulatory [address] Repository 07/13/2018/07/13/19 [id number] Ambulatory [address] Repository 07/06/2018 [id number] Ambulatory [facility] ing:PSN Repository 07/06/2018 [id number] Ambulatory BMSBuilding:[facility] Repository 06/25/2018/06/25/19 [id number] Ambulatory BMSBuilding:[address] [place] [address] [facility] Repository 06/15/2018/06/18/20 [id number] Ambulatory [address] Repository 05/30/2018/05/30/20 [id number] Ambulatory BMSBuilding:[address] [place] [address] MS.[facility] Repository 05/22/2018/05/22/20 [id number] Ambulatory [address] Repository 05/22/2018/05/22/20 [id number] Ambulatory [address] Repository 05/22/2018/05/23/20 [id number] Ambulatory [address] Repository 04/19/2018/04/19/20 [id number] Ambulatory [address] Repository 04/12/2018/04/12/20 [id number] Ambulatory [address] Repository 04/12/2018/10/26 [id number] Ambulatory [address] Repository 04/12/2018 [id number] Ambulatory [facility] ing:LAB.FUTUR Repository E 03/19/2018 [id number] Ambulatory BMSBuilding:Evan Stanley MS.[facility] Repository 02/27/2018/02/29/20 [id number] Ambulatory [address] Repository 11/27/2017 [id number] Ambulatory [facility] ing:LAB.FUTUR Repository E 10/30/2017/11/01/19 [id number] Nahum Blake Inpatient [address] ing:PCURoom: Repository [id number]: 1 10/30/2017 [id number] Nahum Blake Ambulatory BMSBuilding:Evan Stanley MS.[facility] Repository 10/30/2017 [id number] Nahum Blake Ambulatory BMSBuilding:Evan Stanley MS.CF.[facility] Repository 10/30/2017 [id number] Nahum Blake Ambulatory BMSBuilding:Evan Stanley MS.[facility] Repository 10/30/2017 [id number] Nahum Blake Ambulatory BMSBuilding:Evan Stanley MS.CF.[facility] Repository 10/30/2017/10/31/[id number] ALYSA Emergency [facility]in[address] [place] [address] JAGJIT edge: ERBed: [facility] Repository 09/13/2017/09/14/19 [id number] Ambulatory [address] Repository 09/13/2017/09/15/19 [id number] Ambulatory [address] Repository 07/24/2017/07/24/19 [id number] Ambulatory [address] Repository 07/18/2017/07/19/19 [id number] Ambulatory [address] Repository 07/18/2017 [id number] [facility] ing:LAB Repository PAYERS PAYERS ENCOUNTER GUARANTOR PAYER SUBSCRIBER SOURCE 07/06/2018 LAZARO [id number] Insurance:AETNAPolicy BRATCHERDOB: Community JUAN [place]: [id number] Repository [address]Mov: (330) Date:6513-63-06HD [phone] () [id number] [address] [place] [id number]: 07/06/2018 Secondary NOT GIVENUNK Stephani Insurance:[facility]LF [facility]Y [facility] Effective Repository Date:2018-06-25 07/06/2018 LAZARO Trujillo Primary ANN Stanley [id number] E Insurance:AETNAPolicy BRATCHERDOB: Community JUAN Number: [id number] [place] [id number] Repository [address]Evf: (330) Date:8745-68-94JO [phone] () [id number] [address] URIBE [id number]: 07/06/2018 Secondary NOT GIVENUNK Chimayo Insurance:SELF PAY [facility] Effective Repository Date:2018-07-06 06/25/2018 LAZARO Trujillo Primary ANN Stanley [id number] E Insurance:AETNAPolicy BRATCHERDOB: Community JUAN Number: [id number] [id number] Repository 21989Stx: (330) Date:1328-50-35BY [phone] () [id number] [place]OURT [address]ER: 06/25/2018 Secondary NOT GIVENUNK Stephani Insurance:SELF PAY [facility] Number: Effective Repository Date:2018-06-21 05/30/2018 LAZARO T Primary ANN Stanley [id number] E Insurance:AETNAPolicy BRATCHERDOB: Community JUAN Number: [id number] [place] [id number] Repository [address]Qvi: (330) Date:2791-13-12BE [phone] (HP) [id number] [place]OURT [address]TE: 05/30/2018 Secondary NOT GIVENUNK Stephani Insurance:SELF PAY [facility] Number: Effective Repository Date:2018-05-30 04/12/2018 LAZARO Trujillo Primary ANN Stanley [id number] E Insurance:AETNAPolicy BRATCHERDOB: Community JUAN Number: [id number], [place] [id number] Repository [address]Mdk: (330) Date:3930-43-17WU [phone] (HP) [id number] [address]QB: 04/12/2018 Secondary NOT GIVENUNK Chimayo Insurance:SELF PAY [facility] Number: Effective Repository Date:2018-04-12 03/19/2018 LAZARO Trujillo Primary ANN Stanley [id number] Insurance:AETNAPolicy BRATCHERDOB: Community JUAN [place]: [id number] [id number] Repository [address]Dpa: (330) Date:0040-14-97[phone] (HP) [id number] [place] [address]OI: 03/19/2018 Secondary NOT GIVENUNK Chimayo Insurance:SELF PAY [facility] Number: Effective Repository Date:2018-03-19 11/27/2017 LAZARO Trujillo Primary ANN Stanley [id number] [address] Insurance:AETNAPolicy BRATCHERDOB: Community JUAN Number: [id number] [place], [place] [id number] Repository [address]Ask: ([phone]) Date:8853-80-60WP [phone] (HP) [id number] [place] [address]DI: 11/27/2017 Secondary NOT GIVENUNK Chimayo Insurance:SELF PAY [facility] Number: Effective Repository Date:2017-11-27 10/30/2017 LAZARO Trujillo Primary ANN [id number] Insurance:AETNAPolicy BRATCHERDOB: Community JUAN Number: [id number] [place], [place] [id number] Repository [address]Tdm: (330) Date:3308-11-16[phone] (HP) [id number] [address]PH: 10/30/2017 Secondary NOT GIVENUNK Stephani Insurance:SELF PAY [facility] Number: Effective Repository Date:2017-10-30 10/30/2017 LAZARO Trujillo Primary ANN Stanley [id number] [address] Insurance:AETNAPolicy BRATCHERDOB: Community JUAN Number: [id number] [place], [place] [id number] Repository [address]Adq: (330) Date:8219-99-59SO [phone] () [id number] [address]LM: 10/30/2017 Secondary NOT GIVENUNK Stephani Insurance:SELF PAY [facility] Number: Effective Repository Date:2017-10-30 10/30/2017 LAZARO Trujillo Primary ANN Stanley [id number] [address] Insurance:AETNAPolicy BRATCHERDOB: Community JUAN Number: [id number] [place], [place] [id number] Repository [address]Yay: (330) Date:5005-66-66MU [phone] (HP) [id number] [address]XO: 10/30/2017 Secondary NOT GIVENUNK Chimayo Insurance:SELF PAY [facility] Number: Effective Repository Date:2017-10-30 10/30/2017 LAZARO Trujillo Primary ANN Stanley [id number] E Insurance:AETNAPolicy BRATCHERDOB: Community JUAN Number: [id number] [place] [id number] Repository [address]Seq: (330) Date:3665-77-27JC [phone] (HP) [id number] [place] [address]SL: 10/30/2017 Secondary NOT GIVENUNK Chimayo Insurance:SELF PAY [facility] Number: Effective Repository Date:2017-10-30 10/30/2017 LAZARO Trujillo Primary ANN Stanley [id number] E Insurance:AETNAPolicy BRATCHERDOB: Community JUAN Number: [id number] [place] [id number] Repository [address]Cjk: 330) Date:0732-31-84SU [phone] (HP) [id number] [place] [address]IM: 10/30/2017 Secondary NOT GIVENUNK Stephani Insurance:SELF PAY [facility] Number: Effective Repository Date:2017-10-30 10/30/2017 LAZARO Kimball BRATCHERDOB: Insurance:AETNA BRATCHERDOB: [facility] [id number] [facility] OUTPATIENTPolicy [address] [place] [address], Number: 83[place], [place] [address]Dmo: [id number] [place] [address] Date:Plan Name:A1 () 10/30/2017 Secondary ANN Kimball Insurance:AETNA BRATCHERDOB: [facility] [id number] [facility] 7 Repository Number: 83[facility] [id number] [id number] Date:Plan Name:A1 07/18/2017 LAZARO Trujillo Primary ANN Stanley [id number] E Insurance:AETNAPolicy BRATCHERDOB: Community JUAN Number: [id number] [place], [place] [id number] Repository [address]Seb: (330) Date:2214-58-71LK [phone] () [id number] [place] [address]DF: 07/18/2017 Secondary NOT GIVENUNK Chimayo Insurance:SELF PAY [facility] Number: Effective Repository Date:2017-07-18
== END ==
PROVIDERS: Family Provider Family Medicine; PCP Family Medicine; Referring Provider Internal Medicine Critical Care Medicine; Visit Provider Internal Medicine Critical Care Medicine
DX: R06.09 Other forms of dyspnea (principal)
CPT/HCPCS: 94060; 94726; 94729

== ENCOUNTER 2018-07-23 19:46 | Observation (INO) | payer OTHER, SELFPAY ==
[2018-06-25 11:18] VITALS: BMI 39.7
[2018-07-23 19:47] VITALS: BP 126/62; PULSE 75; PULSE 81; RESP 18; RESP 19; TEMP 37; O2SAT 95; O2SAT 97; BMI 39.1
[2018-07-23 21:02] LABS: Color, Urine Yellow (Yellow); Glucose, Dipstick Normal (Normal); Ketone-Dipstick 15 mg/dl (Negative); Leukocyte Esterase-Dipstick 500 /ul (Negative); Nitrite-Dipstick Positive (Negative); Occult Blood-Urine 250 /ul (Negative); Protein-Dipstick 100 mg/dl (Negative); Specific Gravity, Urine 1.015 (1.002-1.030); Urine Clarity Cloudy (Clear); Urine Urobilinogen 4 mg/dl (Normal)
[2018-07-23 21:06] LABS: Urine Bilirubin Dipstick 1 mg/dL (Negative)
[2018-07-23 21:07] LABS: Bacteria 1+ /hpf (None Seen); Red Blood Cells-Urine 25-50 SEEN /hpf (0-5); Squamous Epithelial Cells - UA 0-5 SEEN /hpf (0-5); White Blood Cells 50-100 SEEN /hpf (0-5)
[2018-07-23 21:08] LABS: Amorphous Sediment 1+ URATE; Mucous, Urine 1+ /hpf (<or=2+)
--- NOTE | 2018-07-23 21:13 | CT_ITS ---
STUDY: CT ABDOMEN AND PELVIS WITHOUT CONTRAST REASON FOR EXAM: Male, 62 years old. Lank pain and difficulty urinating RADIATION DOSAGE (If Supplied By Facility): CTDIvol = ( 23.63 ) mGy, DLP = ( 1876.93 ) mGycm TECHNIQUE: Transaxial images were obtained from the dome of the diaphragm to the symphysis pubis without oral contrast, and without intravenous contrast. Sagittal and coronal images were reconstructed. Individualized dose optimization techniques were used for this CT. COMPARISON: October 01, 2015 CT scan abdomen and pelvis FINDINGS: The visualized lung bases are unremarkable. There is mild cardiac enlargement the visualized coronary calcifications. There is mild fatty liver infiltration. There is a stable hepatic cyst in the right hepatic lobe measuring 1.9 cm. There is non-visualization of the gallbladder, which may be secondary to either contraction or a prior cholecystectomy. There is moderate to severe splenomegaly. Normal pancreas. There is a stable nodule in the left adrenal gland suggestive of an adenoma measuring 2.0 x 1.6 cm. Adrenal gland appears normal. There is a right renal cyst measuring 4 x 3.5 cm slightly enlargement compared to prior study lying for passage of time. The Hounsfield units are in the range of simple fluid. Normal left kidney. Is a small hiatal hernia measuring 3.1 x 2.5 cm stable since prior study. Normal small intestine. There is mild to moderate stool in the colon there is diverticulosis without visualized diverticulitis. There is a decompressed mildly thick-walled appearance of the rectum. The appendix is visualized and appears normal. There are a few punctate calcifications in the distal aorta. Normal inferior vena cava. There are multiple small subcentimeter retroperitoneal lymph nodes. This is stable since prior study. The bladder is partially decompressed. The prostate is markedly enlarged measuring 7.7 x 7.4 x 7.6 cm. There is a right side penile prosthesis pump. Normal abdominal wall. There are diffuse degenerative changes of the visualized lumbar spine. At T10 there is a focal sclerotic density measuring 1.2 cm. Stable since prior study October 01, 2015. There is a stable focal density at T11 measuring 5.[address]/Abdomen/Pelvis without Cont IMPRESSION: The prostate is markedly enlarged measuring 7.7 x 7.4 x 7.6 cm. This is enlarged since prior study when it measured 6.3 x 6.7 x 6 cm. There is a penile prosthesis demonstrated. Recommend correlation with history. Diverticulosis no evidence of diverticulitis stable hepatic cysts Slightly greater sized right renal cyst when compared to prior study which is likely enlarged over time with persistent benign features. Could consider follow-up ultrasound when appropriate. Degenerative changes of the thoracolumbar spine stable sclerotic densities T10-T11. There is a mildly thickened appearance of the wall of the rectum which may related to peristalsis, cannot entirely exclude proctitis.. Electronically Signed: Brynn Lizama MD at 22:48 EST Tel , Service support ,
[2018-07-23] MEDS: Ondansetron 4 MG/2 ML Vial IV (21:45)
[2018-07-23] MEDS: 0.9% Normal Saline 1,000 ML 250 ML IV (21:45)
[2018-07-23 21:48] LABS: Absolute Lymphocyte Count 1.74 X10^3/ul (0.83-4.51); Absolute Neutrophil Count 19.8 X10^3/uL (2.0-7.7); Basophil# 0.02 X10^3/uL; Basophil% 0.1 % (0-1); Differential Indicated SCAN CRITERIA MET; Hemoglobin 16.8 g/dl (13.0-16.5); Lymphocyte # 1.74 X10^3/ul (4.0); Lymphocyte % 7.9 % (19-41); Mean Corp Hgb Conc 33.6 g/gl (32-36); Mean Corpuscular Hgb 28.4 pg (27.0-32.0); Mean Corpuscular Volume 84.6 fL (80-94); Mean Platelet Vol. 11.9 fl (6.2-12.0); Monocyte# 0.47 X10^3/uL; Monocyte% 2.1 % (0-10); Neutrophil # 19.78 X10^3/uL (2.7-7.7); Neutrophil % 89.5 % (47-70); POSITIVE COUNT NO; POSITIVE DIFFERENTIAL NO; POSITIVE MORPHOLOGY YES; Platelet Count 108 K/mm3 (150-450); RBC Distribution Width CV 14.1 % (11.6-14.6); RBC Distribution Width SD 42.9 fl (35.1-43.9); Red Blood Count 5.91 M/mm3 (4.6-6.2); White Blood Count 22.1 K/mm3 (4.4-11.0)
[2018-07-23] MEDS: Ceftriaxone 1 GM/50 ML BAG IV ×2 (21:49→23:06)
[2018-07-23] MEDS: Morphine 4 MG/ML Syringe IV ×2 (21:50→22:48)
[2018-07-23] MEDS: Acetaminophen 500 MG Tablet 1000 MG PO (21:50)
[2018-07-23 21:54] VITALS: BP 126/67; PULSE 73; PULSE 75; RESP 13; TEMP 37.1; O2SAT 95; O2SAT 96
[2018-07-23 21:58] VITALS: TEMP 37.1
[2018-07-23 21:59] LABS: ALB/GLOB Ratio 1.2 RATIO (0.9-2.4); AST(SGOT) 22 U/L (15-37); Alanine Aminotransfer ALT/SGPT 37 U/L (16-61); Albumin, Serum 3.8 g/dL (3.2-5.0); Alkaline Phosphatase 69 U/L (45-117); Anion Gap 10 (5-15); BUN 19 mg/dL (7-18); BUN/Creat Ratio 13.2 RATIO (10-20); Calcium,Total 8.2 mg/dL (8.5-10.1); Chloride 104 mmol/L (98-107); Creatinine, Serum 1.44 mg/dL (0.70-1.30); EST Glomerular Filtration Rate 53 mL/min (>60); Est Glom Filt Rate - Afr Amer 64 mL/min (>60); Estimated Creatinine Clearance 68.75 ml/min; Globulin 3.3 g/dL (2.2-4.2); Glucose 139 mg/dL (74-106); Potassium 3.4 mmol/L (3.5-5.1); Protein, Total 7.1 g/dL (6.4-8.2); Sodium Level 138 mmol/L (136-145)
[2018-07-23 22:00] VITALS: BP 126/67; PULSE 75; RESP 12; TEMP 37.1; O2SAT 96
[2018-07-23 22:02] LABS: Differential Comment SCANNED
[2018-07-23 22:10] LABS: International Normalized Ratio 1.1; Prothrombin Time (Protime)PT. 13.7 SECONDS (11.7-14.9)
[2018-07-23 22:14] LABS: Lactic Acid 3.6 mmol/L (0.4-2.0)
--- NOTE | 2018-07-23 22:17 | ED.RN ---
RECEIVED CRITICAL FROM LAB. LACTIC ACID 3.6. DR. WASHINGTON NOTIFIED.
[2018-07-23] MEDS: 0.9% Normal Saline 1,000 ML 999 ML IV (22:44)
[2018-07-23 23:00] VITALS: PULSE 75; RESP 16; TEMP 37.4; O2SAT 95
--- NOTE | 2018-07-23 23:04 | ED.RN ---
CALLED PHARMACY REGARDING 2ND GRAM OF ROCEPHIN.
--- NOTE | 2018-07-23 23:43 | CPS ---
Discussed with Pt. on CPAP usage when admitted. Pt. told me that he didn't want to use the hospital's CPAP unit for tonight. Pt. said will bring Home unit in tomorrow for use.
[2018-07-24] VITALS (19 sets, daily range): BP systolic 124–151; BP diastolic 58–77; PULSE 67–104; RESP 14–18; TEMP 36.7–38; O2SAT 93–99; BMI 40.0; BMI 40.1
--- NOTE | 2018-07-24 | PCM.HP.STD ---
Problem List (1) UTI (urinary tract infection) Status: Acute Qualifiers: Indwelling urinary catheter type: unspecified Encounter type: initial encounter (2) Prostate enlargement Status: Chronic (3) Presence of stent in coronary artery Status: Chronic Comment: PTCA/stent to LAD 08/29 (4) Essential hypertension Status: Chronic (5) DEENA (obstructive sleep apnea) Status: Chronic (6) CAD (coronary atherosclerotic disease) Status: Chronic Qualifiers: Comment: PTCA/stent to LAD 08/29 (7) Testosterone deficiency Status: Chronic (8) Obesity Status: Chronic History of Present Illness Date of Admission: 07/24/18 Chief Complaint: abdominal pain, nausea and vomiting The patient is a 62 year old male patient present to the ER with complaint of abdominal pain with nausea. Onset of this began this morning whilst he was out with his car shopping. His abdomen began cramping and nausea ensued. He was feeling more weak and painful throughout the day. He has had some dysuria recently as well. In the ER he was found to have a WBC count of 22,000 with a left shift along with a lactate of 3.6 and the urinalysis was markedly positive. CT scan shows a markedly enlarged prostate gland. Since he has arrived and initial treatment began he has started to feel better. He will be admitted for IV antibiotics and fluid resuscitation. Past Medical History Past Medical History (Chronic Problems): Chronic Problems (Last Reviewed 06/25/18 @ 11:16 by Anabelle Ross) Prostate enlargement (Chronic) Dyspnea on exertion (Chronic) Claudication (Chronic) Presence of stent in coronary artery (Chronic ~08/2012) PTCA/stent to LAD 08/29 Essential hypertension (Chronic) Atherosclerotic heart disease of [place] coronary artery without angina pectoris (Chronic) Abnormal myocardial perfusion study (Chronic) H/O percutaneous transluminal coronary angioplasty (Chronic) HLD (hyperlipidemia) (Chronic) Abnormal stress test (Chronic) DEENA (obstructive sleep apnea) (Chronic) CAD (coronary atherosclerotic disease) (Chronic) PTCA/stent to LAD 08/29 Testosterone deficiency (Chronic) Obesity (Chronic) Pulmonary embolism (Chronic) Medical History: Medical History (Last Reviewed 06/25/18 @ 11:16 by Anabelle Ross) Essential hypertension (Chronic) I10 Atherosclerotic heart disease of [place] coronary artery without angina pectoris (Chronic) I25.10 Abnormal myocardial perfusion study (Chronic) R94.39 H/O percutaneous transluminal coronary angioplasty (Chronic) Z98.61 HLD (hyperlipidemia) (Chronic) E78.5 Abnormal stress test (Chronic) R94.39 DEENA (obstructive sleep apnea) (Chronic) G47.33 TIA (transient ischemic attack) G45.9 BPH (benign prostatic hyperplasia) N40.0 Fibromyalgia M79.7 GERD (gastroesophageal reflux disease) K21.9 HTN (hypertension) (Inactive) I10 Allergies Sulfa (Sulfonamide Antibiotics) Allergy (Verified 07/23/18 19:47) Unknown ibuprofen [From Motrin] Adverse Reaction (Verified 07/23/18 19:47) Itching Home Medications: Ambulatory Orders Medication Instructions Recorded Esomeprazole Mag Trihydrate 40 mg PO DAILY 10/03/13 [Nexium] Potassium Chloride [Klor-Con 10] 40 meq PO DAILY 10/03/13 Multivitamins,Ther W-Minerals 1 tab PO DAILY 12/10/13 [Multivitamin With Minerals] Nitroglycerin [Nitrostat] 0.4 mg SUBLINGUAL Q5M PRN 12/10/13 Testosterone Cypionate 100 mg IM Q7D 12/10/13 [Depo-Testosterone] Aspirin E.C. [Ecotrin] 81 mg PO DAILY@0800 08/17/16 Meloxicam [Mobic] 7.5 mg PO DAILY 08/17/16 amlodipine 10 mg tablet 10 mg PO QDAY 06/09/17 Duloxetine Hcl [Cymbalta] 30 mg PO DAILY 10/30/17 Gabapentin [Neurontin] 300 mg PO QHS 10/30/17 losartan 25 mg tablet 25 mg PO DAILY #90 tab 05/30/18 metoprolol tartrate 25 mg tablet 25 mg PO BID #180 tab 05/30/18 Allopurinol 100 mg PO DAILY 07/23/18 Surgical History: Surgical History (Last Reviewed 06/25/18 @ 11:16 by Anabelle Ross) Presence of stent in coronary artery (Chronic) Onset Date: ~08/2012 Z95.5 PTCA/stent to LAD 08/29 History of PTCA Onset Date: ~08/2012 Z98.61 PTCA/stent to LAD History of left heart catheterization (LHC) Z98.890 01/2007, 12/2012, 11/2013 History of repair of rotator cuff Z98.890 History of tonsillectomy and adenoidectomy Z98.890 Surgical History: angioplasty Psychiatric History: No pertinent psych hx Smoking Status: Former smoker - *Family History Maternal Family History: Family History (Last Reviewed 06/25/18 @ 11:16 by Anabelle Ross) Mother CAD (coronary artery disease) Hypertension Hx of CABG Father Hypertension Myocardial infarction Grandfather Myocardial infarction Grandmother Cancer Grandfather CAD (coronary artery disease) History Items: Heart Disease Paternal Family History: Family History (Last Reviewed 06/25/18 @ 11:16 by Anabelle Ross) Mother CAD (coronary artery disease) Hypertension Hx of CABG Father Hypertension Myocardial infarction Grandfather Myocardial infarction Grandmother Cancer Grandfather CAD (coronary artery disease) History Items: Heart Disease Review of Systems Constitutional: Reports: Chills, Fever, Weakness. Denies: Weight Change HEENT: Denies: Head Aches, Sinus Congestion, Sinus Drainage Cardiovascular: Denies: Chest Pain, Palpitations Respiratory: Denies: Cough, Shortness of breath at rest, Sputum production Gastrointestinal: Reports: Abdominal Pain, Nausea, Vomiting Genitourinary: Reports: Dysuria Musculoskeletal: Denies: Joint Pain, Joint Tenderness Skin: Denies: Rash, Wounds Neurological: Denies: Numbness, Tingling, Focal weakness Psychiatric: Denies: Anxiety, Depression, Homicidal Ideations, Suicidal Ideations Hematologic/ Lymphatic: Denies: Easy Bruising, Easy Bleeding VTE Information - Inpt Only VTE Present on Admission: No VTE Mechan Device Prophylaxis: None VTE Pharm Prophylaxis ordered?: Yes Patient Problems: Active and Suspected Problems (Last Reviewed 06/25/18 @ 11:16 by Anabelle Ross) UTI (urinary tract infection) (Acute) UTI (urinary tract infection) (Acute) - Physical Exam General: Alert, Oriented x3, Cooperative HEENT: Atraumatic, Normocephalic Neck: Supple Lungs: Clear to auscultation, Normal air movement Cardiovascular: Regular rate, Normal S1, Normal S2, No murmurs Abdomen: Bowel Sounds Present, Soft, Obese, Tender Extremities: No edema Skin: No rashes Musculoskeletal: No Tenderness to Palpation of Joints or Extremities Neurological: Neuro grossly intact Psych/Mental Status: Normal Affect, Appropriate Vital Signs Temp Pulse Resp BP Pulse Ox 99.4 F H 75 16 126/67 H 95 07/23/18 23:00 07/23/18 23:00 07/23/18 23:00 07/23/18 22:00 07/23/18 23:00 Oxygen Delivery Method Room Air Weight: 330 lb Body Mass Index (BMI) 39.1 Laboratory Tests Past 24 Hrs 07/23/18 07/23/18 07/23/18 20:30 20:30 20:30 WBC 22.1 H RBC 5.91 Hgb 16.8 H Hct 50.0 MCV 84.6 MCH 28.4 MCHC 33.6 RDW 14.1 RDW Differential 42.9 Plt Count 108 L MPV 11.9 Immature Gran % (Auto) 0.400 Neut % (Auto) 89.5 H Lymph % (Auto) 7.9 L [place] % (Auto) 2.1 Eos % (Auto) 0.0 Baso % (Auto) 0.1 Absolute Neuts (auto) 19.8 H Absolute Lymphs (auto) 1.74 Total Counted Not Reportable Differential Comment SCANNED PT 13.7 INR 1.1 APTT 24.0 L Sodium 138 Potassium 3.4 L Chloride 104 Carbon Dioxide 24.0 Anion Gap 10 BUN 19 H Creatinine 1.44 H Estim Creat Clear Calc 68.75 Est GFR (MDRD) Af Amer 64 Est GFR (MDRD) Non-Af 53 L BUN/Creatinine Ratio 13.2 Glucose 139 H Lactic Acid Calcium 8.2 L Total Bilirubin 1.60 H AST 22 ALT 37 Alkaline Phosphatase 69 Total Protein 7.1 Albumin 3.8 Globulin 3.3 Albumin/Globulin Ratio 1.2 Urine Color Urine Clarity Urine pH Ur Specific [place] Urine Protein Urine Glucose (UA) Urine Ketones Urine Occult Blood Urine Nitrite Urine Bilirubin Urine Urobilinogen Ur Leukocyte Esterase Urine RBC Urine WBC Ur Squamous Epith Cells Amorphous Sediment Urine Bacteria Urine Mucus 07/23/18 07/23/18 20:55 21:36 WBC RBC Hgb Hct MCV MCH MCHC RDW RDW Differential Plt Count MPV Immature Gran % (Auto) Neut % (Auto) Lymph % (Auto) [place] % (Auto) Eos % (Auto) Baso % (Auto) Absolute Neuts (auto) Absolute Lymphs (auto) Total Counted Differential Comment PT INR APTT Sodium Potassium Chloride Carbon Dioxide Anion Gap BUN Creatinine Estim Creat Clear Calc Est GFR (MDRD) Af Amer Est GFR (MDRD) Non-Af BUN/Creatinine Ratio Glucose Lactic Acid 3.6 H Calcium Total Bilirubin AST ALT Alkaline Phosphatase Total Protein Albumin Globulin Albumin/Globulin Ratio Urine Color Yellow Urine Clarity Cloudy Urine pH 6.0 Ur Specific [place] 1.015 Urine Protein 100 H Urine Glucose (UA) Normal Urine Ketones 15 H Urine Occult Blood 250 H Urine Nitrite Positive H Urine Bilirubin 1 H Urine Urobilinogen 4 H Ur Leukocyte Esterase 500 H Urine RBC 25-50 SEEN Urine WBC 50-100 SEEN Ur Squamous Epith Cells 0-5 SEEN Amorphous Sediment 1+ URATE Urine Bacteria 1+ Urine Mucus 1+ Assessment/Plan All Active Problems (Last Reviewed 06/25/18 @ 11:16 by Anabelle Ross) UTI (urinary tract infection) (Acute) UTI (urinary tract infection) (Acute) Unstable angina (Acute) Confusion (Acute) Chronic Problems (Last Reviewed 06/25/18 @ 11:16 by Anabelle Ross) Prostate enlargement (Chronic) Dyspnea on exertion (Chronic) Claudication (Chronic) Presence of stent in coronary artery (Chronic ~08/2012) PTCA/stent to LAD 08/29 Essential hypertension (Chronic) Atherosclerotic heart disease of [place] coronary artery without angina pectoris (Chronic) Abnormal myocardial perfusion study (Chronic) H/O percutaneous transluminal coronary angioplasty (Chronic) HLD (hyperlipidemia) (Chronic) Abnormal stress test (Chronic) DEENA (obstructive sleep apnea) (Chronic) CAD (coronary atherosclerotic disease) (Chronic) PTCA/stent to LAD 08/29 Testosterone deficiency (Chronic) Obesity (Chronic) Pulmonary embolism (Chronic) Plan 1. UTI/elevated lactate/leukocytosis-- admit to PCU. Follow sepsis protocol. Rocephin 1 gram IV q 24hrs. repeat lactate,cbc,Cmp in am 2. Prostate enlargement-- check PSA- may defer back to urology as outpatient for consideration of biopsy. 3. DVT prophylaxis-- LMWH 4. Hypertension-- continue current medications since he is normotensive 5. DEENA -- ok CPAP Code Visit Inpatient E&M: 82088 Init Hosp L3
--- NOTE | 2018-07-24 00:16 | ED.VISSUMM ---
- ER Visit Summary Date of Service: 07/24/18 Chief Complaint: Dysuria and fever History of Present Illness: The patient is a [address] Myers. He reports he has a fever that began this today. States been as high as 101.8 degrees. He is also had chills and sweats. He also has dysuria and frequency that began today as well. States that he has lower abdominal pain that is 7 out of 10 at worst and 4-10 currently. Is been nauseated, but has not vomited. He has had diarrhea for the past 2 days to 4 times a day. No blood in his stools. Complains of generalized weakness as well. Physical Examination: Vitals: Stable. Afebrile. General: Well-nourished and well-developed. Head: Normocephalic atraumatic. Neck: Supple, no lymphadenopathy. No JVD. Nontender. Cardiovascular: Regular rate and rhythm. No murmurs. Respiratory: No respiratory distress. Clear to auscultation bilaterally. Abdominal: Soft, mild suprapubic tenderness to palpation, nondistended, normal bowel sounds. No guarding, rebound, or peritoneal signs. Back: Nontender. No CVA tenderness. Extremities: Nontender, no edema. Skin: Normal color, no rash. Neurologic: Alert and oriented ?3. Cranial nerves II through XII are intact. Normal strength and sensation. Psych: Normal affect. Test Results: CBC is marked for a white count of 22.1, hemoglobin of 17, platelets of 108, segmented neutrophils of 90, lymphocytes of 8. Chem-7 is more for potassium 3.4, calcium of 8.2, glucose 139, BUN 19, creatinine 1.44. LFTs marked total bili 1.6. INR is 1.1. PTT is 24.0. UA is clearly infected. Lactic acid is 3.6. Clinical Impression(s) from Imaging Studies Abdomen/Pelvis CT 07/23/18 21:13 IMPRESSION: The prostate is markedly enlarged measuring 7.7 x 7.4 x 7.6 cm. This is enlarged since prior study when it measured 6.3 x 6.7 x 6 cm. There is a penile prosthesis demonstrated. Recommend correlation with history. Diverticulosis no evidence of diverticulitis stable hepatic cysts Slightly greater sized right renal cyst when compared to prior study which is likely enlarged over time with persistent benign features. Could consider follow-up ultrasound when appropriate. Degenerative changes of the thoracolumbar spine stable sclerotic densities T10-T11. There is a mildly thickened appearance of the wall of the rectum which may related to peristalsis, cannot entirely exclude proctitis.. Electronically Signed: Brynn Lizama MD at 22:48 EST Tel , Service support , Emergency Department Course and Treatment: Patient had blood and urine culture sent. He was given Rocephin IV. He was given morphine and Zofran IV. He was given on 2 L of normal saline. His blood pressures remained stable while here. He feels much improved. Treatment Plan: Patient was discussed with Dr. Godoy. He will be admitted to the hospital for further relation treatment. Disposition: Admitted in improved condition. Impression: 1. Sepsis. 2. Pyelonephritis. This note was generated with [employer] dictation software. It may contain incorrect words, spelling, and punctuation that were not noted in review of the chart prior to signing ED Disposition - Plan for ED Patient: Referrals: Jagjit Myers MD [Primary Care Provider] -
--- NOTE | 2018-07-24 00:19 | ED.DCSUM_ITS ---
- ER Visit Summary Date of Service: 07/24/18 Chief Complaint: Dysuria and fever History of Present Illness: The patient is a [address] Myers. He reports he has a fever that began this today. States been as high as 101.8 degrees. He is also had chills and sweats. He also has dysuria and frequency that began today as well. States that he has lower abdominal pain that is 7 out of 10 at worst and 4-10 currently. Is been nauseated, but has not vomited. He has had diarrhea for the past 2 days to 4 times a day. No blood in his stools. Complains of generalized weakness as well. Physical Examination: Vitals: Stable. Afebrile. General: Well-nourished and well-developed. Head: Normocephalic atraumatic. Neck: Supple, no lymphadenopathy. No JVD. Nontender. Cardiovascular: Regular rate and rhythm. No murmurs. Respiratory: No respiratory distress. Clear to auscultation bilaterally. Abdominal: Soft, mild suprapubic tenderness to palpation, nondistended, normal bowel sounds. No guarding, rebound, or peritoneal signs. Back: Nontender. No CVA tenderness. Extremities: Nontender, no edema. Skin: Normal color, no rash. Neurologic: Alert and oriented ?3. Cranial nerves II through XII are intact. Normal strength and sensation. Psych: Normal affect. Test Results: CBC is marked for a white count of 22.1, hemoglobin of 17, platelets of 108, segmented neutrophils of 90, lymphocytes of 8. Chem-7 is more for potassium 3.4, calcium of 8.2, glucose 139, BUN 19, creatinine 1.44. LFTs marked total bili 1.6. INR is 1.1. PTT is 24.0. UA is clearly infected. Lactic acid is 3.6. Clinical Impression(s) from Imaging Studies Abdomen/Pelvis CT 07/23/18 21:13 IMPRESSION: The prostate is markedly enlarged measuring 7.7 x 7.4 x 7.6 cm. This is enlarged since prior study when it measured 6.3 x 6.7 x 6 cm. There is a penile prosthesis demonstrated. Recommend correlation with history. Diverticulosis no evidence of diverticulitis stable hepatic cysts Slightly greater sized right renal cyst when compared to prior study which is likely enlarged over time with persistent benign features. Could consider follow-up ultrasound when appropriate. Degenerative changes of the thoracolumbar spine stable sclerotic densities T10-T11. There is a mildly thickened appearance of the wall of the rectum which may related to peristalsis, cannot entirely exclude proctitis.. Electronically Signed: Brynn Lizama MD at 22:48 EST Tel , Service support , Emergency Department Course and Treatment: Patient had blood and urine culture sent. He was given Rocephin IV. He was given morphine and Zofran IV. He was given on 2 L of normal saline. His blood pressures remained stable while here. He feels much improved. Treatment Plan: Patient was discussed with Dr. Godoy. He will be admitted to the hospital for further relation treatment. Disposition: Admitted in improved condition. Impression: 1. Sepsis. 2. Pyelonephritis. This note was generated with [employer] dictation software. It may contain incorrect words, spelling, and punctuation that were not noted in review of the chart prior to signing ED Disposition - Plan for ED Patient: Referrals: Jagjit Myers MD [Primary Care Provider] -
[2018-07-24] MEDS: Ondansetron 4 MG/2 ML Vial IV (01:30)
[2018-07-24] MEDS: 0.9% Normal Saline 1,000 ML 250 ML IV ×4 (01:33→13:38)
[2018-07-24 01:41] LABS: Reflex Lactate? Y
[2018-07-24 02:33] LABS: Hematocrit 45.3 % (40-54); Hemoglobin 15.2 g/dl (13.0-16.5); Mean Corp Hgb Conc 33.6 g/gl (32-36); Mean Corpuscular Hgb 28.3 pg (27.0-32.0); Mean Corpuscular Volume 84.2 fL (80-94); Mean Platelet Vol. 10.9 fl (6.2-12.0); Platelet Count 105 K/mm3 (150-450); RBC Distribution Width SD 43.4 fl (35.1-43.9); Red Blood Count 5.38 M/mm3 (4.6-6.2); White Blood Count 19.4 K/mm3 (4.4-11.0)
[2018-07-24 02:42] LABS: Scan Indicated on CBC? Y/N NO
[2018-07-24 03:11] LABS: ALB/GLOB Ratio 1.1 RATIO (0.9-2.4); AST(SGOT) 42 U/L (15-37); Alanine Aminotransfer ALT/SGPT 48 U/L (16-61); Albumin, Serum 3.2 g/dL (3.2-5.0); Alkaline Phosphatase 61 U/L (45-117); Anion Gap 7 (5-15); BUN 18 mg/dL (7-18); BUN/Creat Ratio 13.4 RATIO (10-20); Calcium,Total 7.3 mg/dL (8.5-10.1); Chloride 106 mmol/L (98-107); Creatinine, Serum 1.34 mg/dL (0.70-1.30); EST Glomerular Filtration Rate 58 mL/min (>60); Est Glom Filt Rate - Afr Amer 70 mL/min (>60); Estimated Creatinine Clearance 73.88 ml/min; Globulin 2.9 g/dL (2.2-4.2); Glucose 129 mg/dL (74-106); PSA,Total- Diagnostic 4.54 ng/mL (0.0-4.0); Potassium 3.7 mmol/L (3.5-5.1); Protein, Total 6.1 g/dL (6.4-8.2); Sodium Level 138 mmol/L (136-145)
[2018-07-24 03:16] LABS: Lactic Acid 2.1 mmol/L (0.4-2.0)
[2018-07-24] MEDS: traMADol 50 MG Tablet PO ×2 (05:21→14:52)
[2018-07-24] MEDS: 0.9% NaCl Peripheral Flush Adult/Peds IV ×2 (05:22→21:22)
[2018-07-24] MEDS: Metoprolol Tartrate 25 MG Tablet PO ×2 (08:22→21:22)
[2018-07-24] MEDS: Pantoprazole Sodium 40 MG Tablet PO (08:22)
[2018-07-24] MEDS: amLODIPine 10 MG Tablet PO (08:22)
[2018-07-24] MEDS: Multivitamins,Ther W-Minerals Tablet 1 TABLET PO (08:22)
[2018-07-24] MEDS: Aspirin E.C. 81 MG Tablet PO (08:22)
[2018-07-24] MEDS: DULoxetine Hcl 30 MG Capsule PO (08:22)
[2018-07-24] MEDS: Losartan Potassium 25 MG Tablet PO (08:22)
[2018-07-24] MEDS: Allopurinol 100 MG Tablet PO (08:23)
--- NOTE | 2018-07-24 13:10 | CASEMGMT ---
Assessment- SW met with patient. Introduced self and role at [facility]. He was in agreement with answering questions. Living situation- Patient lives with his in a 1 story home. He has a couple entry steps. PCP: Dr Myers Specialists: Dr Wyatt-Pulmonary Pharmacy: [facility] DME: walker and cane ADL's/IADL's: Patient is independent in all adl's Past SNF/rehab: None Past HH: None LW: Yes. SW let him know it is not on file. He will try and get a copy in to the hospital POA: Yes. SW let him know it is not on file. He will try and get a copy in to the hospital. His [facility] is his healthcare POA Plan: Patient plans on returning home with no needs. Chapis ESTEVEZ MSW
[2018-07-24] MEDS: Magnesium Hydroxide 30 ML UDC PO (14:52)
--- NOTE | 2018-07-24 17:20 | PCM.PN.HOSP ---
Patient Problems: Active and Suspected Problems (Last Reviewed 06/25/18 @ 11:16 by Anabelle Ross) UTI (urinary tract infection) (Acute) UTI (urinary tract infection) (Acute) Subjective: feels much better today. Vitals/I&O's: Vital Signs Temp Pulse Resp BP Pulse Ox 37.0 C 84 14 149/77 H 99 07/24/18 15:17 07/24/18 15:17 07/24/18 15:17 07/24/18 15:17 07/24/18 15:17 Oxygen Delivery Method Room Air Weight: 153.2 kg Body Mass Index (BMI) 40.0 Intake and Output for Last 24 Hours 07/22/18 07/23/18 07/24/18 23:59 23:59 23:59 Intake Total 3671 / 3671 Output Total 800 / 800 Balance 2871 / 2871 General: Alert, No apparent distress HEENT: Atraumatic, Normocephalic Oral: Moist Mucosa, No Gingival or Mucosal Lesions/ Ulcerations Neck: No Nodes, Thyroid Normal Size and Texture Lungs: Clear to auscultation, Normal air movement, No rhonchi, No wheeze Cardiovascular: Regular rate, Regular Rhythm, Normal S1, Normal S2 Abdomen: Bowel Sounds Present, Soft, Non Tender, Non-Distended, No Hepato-splenomegaly Extremities: No edema, No Calf Tenderness Psych/Mental Status: Normal Affect, Appropriate Microbiology Past 72 Hours 07/23/18 20:58 Urine, Clean Catch Urine Culture - Preliminary 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 Laboratory Results 07/23/18 20:30: WBC 22.1 H, RBC 5.91, Hgb 16.8 H, Hct 50.0, MCV 84.6, MCH 28.4, MCHC 33.6, RDW 14.1, RDW Differential 42.9, Plt Count 108 L, MPV 11.9, Immature Gran % (Auto) 0.400, Neut % (Auto) 89.5 H, Lymph % (Auto) 7.9 L, [place] % (Auto) 2.1, Eos % (Auto) 0.0, Baso % (Auto) 0.1, Absolute Neuts (auto) 19.8 H, Absolute Lymphs (auto) 1.74, Total Counted Not Reportable, Differential Comment SCANNED 07/23/18 20:30: PT 13.7, INR 1.1, APTT 24.0 L 07/23/18 20:30: Sodium 138, Potassium 3.4 L, Chloride 104, Carbon Dioxide 24.0, Anion Gap 10, BUN 19 H, Creatinine 1.44 H, Estim Creat Clear Calc 68.75, Est GFR (MDRD) Af Amer 64, Est GFR (MDRD) Non-Af 53 L, BUN/Creatinine Ratio 13.2, Glucose 139 H, Calcium 8.2 L, Total Bilirubin 1.60 H, AST 22, ALT 37, Alkaline Phosphatase 69, Total Protein 7.1, Albumin 3.8, Globulin 3.3, Albumin/Globulin Ratio 1.2 07/23/18 20:55: Urine Color Yellow, Urine Clarity Cloudy, Urine pH 6.0, Ur Specific [place] 1.015, Urine Protein 100 H, Urine Glucose (UA) Normal, Urine Ketones 15 H, Urine Occult Blood 250 H, Urine Nitrite Positive H, Urine Bilirubin 1 H, Urine Urobilinogen 4 H, Ur Leukocyte Esterase 500 H, Urine RBC 25-50 SEEN, Urine WBC 50-100 SEEN, Ur Squamous Epith Cells 0-5 SEEN, Amorphous Sediment 1+ URATE, Urine Bacteria 1+, Urine Mucus 1+ 07/23/18 21:36: Lactic Acid 3.6 H 07/24/18 02:15: WBC 19.4 H, RBC 5.38, Hgb 15.2, Hct 45.3, MCV 84.2, MCH 28.3, MCHC 33.6, RDW 14.0, RDW Differential 43.4, Plt Count 105 L, MPV 10.9 07/24/18 02:15: Sodium 138, Potassium 3.7, Chloride 106, Carbon Dioxide 25.0, Anion Gap 7, BUN 18, Creatinine 1.34 H, Estim Creat Clear Calc 73.88, Est GFR (MDRD) Af Amer 70, Est GFR (MDRD) Non-Af 58 L, BUN/Creatinine Ratio 13.4, Glucose 129 H, Calcium 7.3 L, Total Bilirubin 1.60 H, AST 42 H, ALT 48, Alkaline Phosphatase 61, Total Protein 6.1 L, Albumin 3.2, Globulin 2.9, Albumin/Globulin Ratio 1.1, Total PSA 4.54 H 07/24/18 02:15: Lactic Acid 2.1 H Current Medications Allopurinol (Zyloprim) 100 mg PO DAILY [facility] Last Admin: 07/24/18 08:23 Dose: 100 mg Amlodipine Besylate (Norvasc) 10 mg PO DAILY [facility] Last Admin: 07/24/18 08:22 Dose: 10 mg Aspirin (Ecotrin) 81 mg PO DAILY@0800 [facility] Last Admin: 07/24/18 08:22 Dose: 81 mg Duloxetine HCl (Cymbalta) 30 mg PO DAILY [facility] Last Admin: 07/24/18 08:22 Dose: 30 mg Enoxaparin Sodium (Lovenox) 40 mg SC DAILY@1000 [facility] Last Admin: 07/24/18 08:23 Dose: Not Given Gabapentin (Neurontin) 300 mg PO QHS [facility] Sodium Chloride () 1,000 mls @ 250 mls/hr IV .Q4H [facility] Last Admin: 07/24/18 13:38 Dose: 250 mls/hr Ceftriaxone Sodium (Rocephin) 1 gm in 50 mls @ 100 mls/hr IV Q24H [facility] Losartan Potassium (Cozaar) 25 mg PO DAILY [facility] Last Admin: 07/24/18 08:22 Dose: 25 mg Magnesium Hydroxide (Milk Of Magnesia) 30 ml PO DAILY PRN PRN Reason: Constipation Last Admin: 07/24/18 14:52 Dose: 30 ml Metoprolol Tartrate (Lopressor (Beta Zo)) 25 mg PO BID [facility] Last Admin: 07/24/18 08:22 Dose: 25 mg Multivitamins/Minerals (Multivitamin With Minerals) [facility] Last Admin: 07/24/18 08:22 Dose: 1 tablet Nitroglycerin (Nitrostat) 0.4 mg SUBLINGUAL Q5M PRN PRN Reason: Chest Pain Ondansetron HCl (Zofran) 4 mg IV Q6H PRN PRN PRN Reason: NAUSEA Last Admin: 07/24/18 01:30 Dose: 4 mg Pantoprazole Sodium (Protonix) 40 mg PO DAILY [facility] Last Admin: 07/24/18 08:22 Dose: 40 mg Potassium Chloride (K-Dur) 40 meq PO DAILY [facility] Last Admin: 07/24/18 08:22 Dose: 40 meq Sodium Chloride () 5 - 15 ml IV UD PRN PRN Reason: SALINE FLUSH Last Admin: 07/24/18 05:22 Dose: 10 ml Tramadol HCl (Ultram) 50 mg PO Q6H PRN PRN PRN Reason: MODERATE PAIN (4-5/10) Last Admin: 07/24/18 14:52 Dose: 50 mg Medical Necessity - Tobacco Use Smoking Status: Former smoker Assessment/Plan All Active Problems (Last Reviewed 06/25/18 @ 11:16 by Anabelle Ross) UTI (urinary tract infection) (Acute) UTI (urinary tract infection) (Acute) Unstable angina (Acute) Confusion (Acute) 1. UTI likely 2/2 BPH as he has had UTIs previously no sepsis (met only 1/4 SIRS criteria) continue CTX for now 2. lactic acidosis resolved 3. BPH Had been on flomax in past, will resume follow up with urology as outpt for follow up. 4. DVT proph: LMWH 5. Disposition: pending culture. possible DC Code Visit Inpatient E&M: 40631 Subs Hosp L2
--- NOTE | 2018-07-24 17:25 | PN_ITS ---
Patient Problems: Active and Suspected Problems (Last Reviewed 06/25/18 @ 11:16 by Anabelle Ross) UTI (urinary tract infection) (Acute) UTI (urinary tract infection) (Acute) Subjective: feels much better today. Vitals/I&O's: Vital Signs Temp Pulse Resp BP Pulse Ox 37.0 C 84 14 149/77 H 99 07/24/18 15:17 07/24/18 15:17 07/24/18 15:17 07/24/18 15:17 07/24/18 15:17 Oxygen Delivery Method Room Air Weight: 153.2 kg Body Mass Index (BMI) 40.0 Intake and Output for Last 24 Hours 07/22/18 07/23/18 07/24/18 23:59 23:59 23:59 Intake Total 3671 / 3671 Output Total 800 / 800 Balance 2871 / 2871 General: Alert, No apparent distress HEENT: Atraumatic, Normocephalic Oral: Moist Mucosa, No Gingival or Mucosal Lesions/ Ulcerations Neck: No Nodes, Thyroid Normal Size and Texture Lungs: Clear to auscultation, Normal air movement, No rhonchi, No wheeze Cardiovascular: Regular rate, Regular Rhythm, Normal S1, Normal S2 Abdomen: Bowel Sounds Present, Soft, Non Tender, Non-Distended, No Hepato- splenomegaly Extremities: No edema, No Calf Tenderness Psych/Mental Status: Normal Affect, Appropriate Microbiology Past 72 Hours 07/23/18 20:58 Urine, Clean Catch Urine Culture - Preliminary GNR 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 Laboratory Results 07/23/18 20:30: WBC 22.1 H, RBC 5.91, Hgb 16.8 H, Hct 50.0, MCV 84.6, MCH 28.4, MCHC 33.6, RDW 14.1, RDW Differential 42.9, Plt Count 108 L, MPV 11.9, Immature Gran % (Auto) 0.400, Neut % (Auto) 89.5 H, Lymph % (Auto) 7.9 L, [place] % (Auto) 2.1, Eos % (Auto) 0.0, Baso % (Auto) 0.1, Absolute Neuts (auto) 19.8 H, Absolute Lymphs (auto) 1.74, Total Counted Not Reportable, Differential Comment SCANNED 07/23/18 20:30: PT 13.7, INR 1.1, APTT 24.0 L 07/23/18 20:30: Sodium 138, Potassium 3.4 L, Chloride 104, Carbon Dioxide 24.0, Anion Gap 10, BUN 19 H, Creatinine 1.44 H, Estim Creat Clear Calc 68.75, Est GFR (MDRD) Af Amer 64, Est GFR (MDRD) Non-Af 53 L, BUN/Creatinine Ratio 13.2, Glucose 139 H, Calcium 8.2 L, Total Bilirubin 1.60 H, AST 22, ALT 37, Alkaline Phosphatase 69, Total Protein 7.1, Albumin 3.8, Globulin 3.3, Albumin/Globulin Ratio 1.2 07/23/18 20:55: Urine Color Yellow, Urine Clarity Cloudy, Urine pH 6.0, Ur Specific [place] 1.015, Urine Protein 100 H, Urine Glucose (UA) Normal, Urine Ketones 15 H, Urine Occult Blood 250 H, Urine Nitrite Positive H, Urine Bilirubin 1 H, Urine Urobilinogen 4 H, Ur Leukocyte Esterase 500 H, Urine RBC 25-50 SEEN, Urine WBC 50-100 SEEN, Ur Squamous Epith Cells 0-5 SEEN, Amorphous Sediment 1+ URATE, Urine Bacteria 1+, Urine Mucus 1+ 07/23/18 21:36: Lactic Acid 3.6 H 07/24/18 02:15: WBC 19.4 H, RBC 5.38, Hgb 15.2, Hct 45.3, MCV 84.2, MCH 28.3, MCHC 33.6, RDW 14.0, RDW Differential 43.4, Plt Count 105 L, MPV 10.9 07/24/18 02:15: Sodium 138, Potassium 3.7, Chloride 106, Carbon Dioxide 25.0, Anion Gap 7, BUN 18, Creatinine 1.34 H, Estim Creat Clear Calc 73.88, Est GFR (MDRD) Af Amer 70, Est GFR (MDRD) Non-Af 58 L, BUN/Creatinine Ratio 13.4, Glucose 129 H, Calcium 7.3 L, Total Bilirubin 1.60 H, AST 42 H, ALT 48, Alkaline Phosphatase 61, Total Protein 6.1 L, Albumin 3.2, Globulin 2.9, Albumin/Globulin Ratio 1.1, Total PSA 4.54 H 07/24/18 02:15: Lactic Acid 2.1 H Current Medications Allopurinol (Zyloprim) 100 mg PO DAILY [facility] Last Admin: 07/24/18 08:23 Dose: 100 mg Amlodipine Besylate (Norvasc) 10 mg PO DAILY [facility] Last Admin: 07/24/18 08:22 Dose: 10 mg Aspirin (Ecotrin) 81 mg PO DAILY@0800 [facility] Last Admin: 07/24/18 08:22 Dose: 81 mg Duloxetine HCl (Cymbalta) 30 mg PO DAILY [facility] Last Admin: 07/24/18 08:22 Dose: 30 mg Enoxaparin Sodium (Lovenox) 40 mg SC DAILY@1000 [facility] Last Admin: 07/24/18 08:23 Dose: Not Given Gabapentin (Neurontin) 300 mg PO QHS [facility] Sodium Chloride () 1,000 mls @ 250 mls/hr IV .Q4H [facility] Last Admin: 07/24/18 13:38 Dose: 250 mls/hr Ceftriaxone Sodium (Rocephin) 1 gm in 50 mls @ 100 mls/hr IV Q24H [facility] Losartan Potassium (Cozaar) 25 mg PO DAILY [facility] Last Admin: 07/24/18 08:22 Dose: 25 mg Magnesium Hydroxide (Milk Of Magnesia) 30 ml PO DAILY PRN PRN Reason: Constipation Last Admin: 07/24/18 14:52 Dose: 30 ml Metoprolol Tartrate (Lopressor (Beta Zo)) 25 mg PO BID [facility] Last Admin: 07/24/18 08:22 Dose: 25 mg Multivitamins/Minerals ([facility]amin [facility]) [facility] Last Admin: 07/24/18 08:22 Dose: 1 tablet Nitroglycerin (Nitrostat) 0.4 mg SUBLINGUAL Q5M PRN PRN Reason: Chest Pain Ondansetron HCl (Zofran) 4 mg IV Q6H PRN PRN PRN Reason: NAUSEA Last Admin: 07/24/18 01:30 Dose: 4 mg Pantoprazole Sodium (Protonix) 40 mg PO DAILY [facility] Last Admin: 07/24/18 08:22 Dose: 40 mg Potassium Chloride (K-Dur) 40 meq PO DAILY [facility] Last Admin: 07/24/18 08:22 Dose: 40 meq Sodium Chloride () 5 - 15 ml IV UD PRN PRN Reason: SALINE FLUSH Last Admin: 07/24/18 05:22 Dose: 10 ml Tramadol HCl (Ultram) 50 mg PO Q6H PRN PRN PRN Reason: MODERATE PAIN (4-5/10) Last Admin: 07/24/18 14:52 Dose: 50 mg Medical Necessity - Tobacco Use Smoking Status: Former smoker Assessment/Plan All Active Problems (Last Reviewed 06/25/18 @ 11:16 by Anabelle Ross) UTI (urinary tract infection) (Acute) UTI (urinary tract infection) (Acute) Unstable angina (Acute) Confusion (Acute) 1. UTI likely 2/2 BPH as he has had UTIs previously no sepsis (met only 1/4 SIRS criteria) continue CTX for now 2. lactic acidosis resolved 3. BPH Had been on flomax in past, will resume follow up with urology as outpt for follow up. 4. DVT proph: LMWH 5. Disposition: pending culture. possible DC Code Visit Inpatient E&M: 65731 Subs Hosp L2
[2018-07-24] MEDS: Acetaminophen 325 MG Tablet 650 MG PO (20:40)
[2018-07-24] MEDS: Ceftriaxone 1 GM/50 ML BAG IV (21:22)
[2018-07-24] MEDS: Gabapentin 300 MG Capsule PO (21:28)
[2018-07-25] VITALS (8 sets, daily range): BP systolic 136–157; BP diastolic 63–75; PULSE 73–93; RESP 16–18; TEMP 36.9–39.1; O2SAT 96–100
[2018-07-25] MEDS: Acetaminophen 325 MG Tablet 650 MG PO ×3 (02:42→14:49)
--- NOTE | 2018-07-25 03:21 | NURSING ---
lab notified of stat lactic acid
[2018-07-25 04:06] LABS: Lactic Acid 0.7 mmol/L (0.4-2.0)
[2018-07-25] MEDS: Ondansetron 4 MG/2 ML Vial IV (08:18)
[2018-07-25] MEDS: Magnesium Hydroxide 30 ML UDC PO (08:18)
[2018-07-25] MEDS: Losartan Potassium 25 MG Tablet PO (10:09)
[2018-07-25] MEDS: Aspirin E.C. 81 MG Tablet PO (10:09)
[2018-07-25] MEDS: Allopurinol 100 MG Tablet PO (10:09)
[2018-07-25] MEDS: DULoxetine Hcl 30 MG Capsule PO (10:09)
[2018-07-25] MEDS: Enoxaparin 40 MG/0.4 ML Syringe SC (10:10)
[2018-07-25] MEDS: Metoprolol Tartrate 25 MG Tablet PO (10:10)
[2018-07-25] MEDS: Pantoprazole Sodium 40 MG Tablet PO (10:11)
[2018-07-25] MEDS: Multivitamins,Ther W-Minerals Tablet 1 TABLET PO (10:11)
[2018-07-25] MEDS: amLODIPine 10 MG Tablet PO (10:11)
[2018-07-25] MEDS: 0.9% NaCl Peripheral Flush Adult/Peds IV (11:10)
--- NOTE | 2018-07-25 11:23 | NURSING ---
1000 micro called with +esbl isolated in urine cx. pt teaching given and pt in contact isolation. dr. ortega and cm in for dc planning
--- NOTE | 2018-07-25 11:46 | CASEMGMT ---
Addendum entered by Angela Milligan 07/25/18 12:50: Call from Pili at [facility] infusion center and she states they will be able start pt tomorrow at [address] Blake is ok with discharge today and pt is ok with that time. Pt updated on all at this time and states 1030 tomorrow is fine. This RN CM advised pt to be here around [id number], pt voices understanding. Dr. Blake aware and into speak with pt at this time. Pt voices no further questions/concerns/needs at this time. Sixto ZIMMERMAN CM Original Note: Per Dr. Blake, pt will need to have 7 days of Ertapenem 1gm iv starting today. Pt is agreeable to [facility] infusion center at this time. Call to Jacklyn at [facility] and she states no prior auth is needed for outpatient iv antibiotics at this time. Ref #[id number]. Call to [facility] infusion center and they are updated at this time. Infusion order, as well as face sheet, faxed to infusion center at this time. This RN CM will f/u with infusion center to see if pt could be discharged today and set up at infusion center tomorrow. Pt to be updated once everything set up. Sixto ZIMMERMAN CM
--- NOTE | 2018-07-25 11:58 | PCM.PN.HOSP ---
Patient Problems: Active and Suspected Problems (Last Reviewed 06/25/18 @ 11:16 by Anabelle Ross) UTI (urinary tract infection) (Acute) UTI (urinary tract infection) (Acute) Subjective: Still with fevers. Vitals/I&O's: Vital Signs Temp Pulse Resp BP Pulse Ox 36.9 C 73 18 157/75 H 100 07/25/18 10:00 07/25/18 10:10 07/25/18 10:00 07/25/18 10:10 07/25/18 10:00 Oxygen Delivery Method Room Air Weight: 153.2 kg Body Mass Index (BMI) 40.0 Intake and Output for Last 24 Hours 07/23/18 07/24/18 07/25/18 23:59 23:59 23:59 Intake Total 6832 / 6832 800 / 800 Output Total 2049 / 2049 Balance 4782 / 4782 800 / 800 General: Alert, Cooperative, No apparent distress HEENT: Atraumatic, Normocephalic Oral: Moist Mucosa, No Gingival or Mucosal Lesions/ Ulcerations Neck: No Nodes, Thyroid Normal Size and Texture Lungs: Clear to auscultation, Normal air movement, No rhonchi, No wheeze Cardiovascular: Regular rate, Regular Rhythm, Normal S1, Normal S2, No murmurs Abdomen: Bowel Sounds Present, Soft, Non Tender, Non-Distended, No Hepato-splenomegaly Extremities: No edema, No Calf Tenderness Microbiology Past 72 Hours 07/23/18 20:58 Urine, Clean Catch Urine Culture - Preliminary Escherichia coli Laboratory Results 07/25/18 03:36: Lactic Acid 0.7 Current Medications Acetaminophen (Tylenol) 650 mg PO Q6H PRN PRN PRN Reason: fever > 100.4 or pain Last Admin: 07/25/18 08:18 Dose: 650 mg Allopurinol (Zyloprim) 100 mg PO DAILY [facility] Last Admin: 07/25/18 10:09 Dose: 100 mg Amlodipine Besylate (Norvasc) 10 mg PO DAILY [facility] Last Admin: 07/25/18 10:11 Dose: 10 mg Aspirin (Ecotrin) 81 mg PO DAILY@0800 [facility] Last Admin: 07/25/18 10:09 Dose: 81 mg Duloxetine HCl (Cymbalta) 30 mg PO DAILY [facility] Last Admin: 07/25/18 10:09 Dose: 30 mg Enoxaparin Sodium (Lovenox) 40 mg SC DAILY@1000 [facility] Last Admin: 07/25/18 10:10 Dose: 40 mg Gabapentin (Neurontin) 300 mg PO QHS [facility] Last Admin: 07/24/18 21:28 Dose: 300 mg Ertapenem 1 gm/ Sodium (Chloride) 60 mls @ 100 mls/hr IV Q24 [facility] Last Admin: 07/25/18 11:09 Dose: 100 mls/hr Losartan Potassium (Cozaar) 25 mg PO DAILY [facility] Last Admin: 07/25/18 10:09 Dose: 25 mg Magnesium Hydroxide (Milk Of Magnesia) 30 ml PO DAILY PRN PRN Reason: Constipation Last Admin: 07/25/18 08:18 Dose: 30 ml Metoprolol Tartrate (Lopressor (Beta Zo)) 25 mg PO BID [facility] Last Admin: 07/25/18 10:10 Dose: 25 mg Multivitamins/Minerals ([facility]amin With Minerals) [facility] Last Admin: 07/25/18 10:11 Dose: 1 tablet Nitroglycerin (Nitrostat) 0.4 mg SUBLINGUAL Q5M PRN PRN Reason: Chest Pain Ondansetron HCl (Zofran) 4 mg IV Q6H PRN PRN PRN Reason: NAUSEA Last Admin: 07/25/18 08:18 Dose: 4 mg Pantoprazole Sodium (Protonix) 40 mg PO DAILY [facility] Last Admin: 07/25/18 10:11 Dose: 40 mg Potassium Chloride (K-Dur) 40 meq PO DAILY [facility] Last Admin: 07/25/18 10:10 Dose: 40 meq Sodium Chloride () 5 - 15 ml IV UD PRN PRN Reason: SALINE FLUSH Last Admin: 07/25/18 11:10 Dose: 10 ml Tramadol HCl (Ultram) 50 mg PO Q6H PRN PRN PRN Reason: MODERATE PAIN (4-5/10) Last Admin: 07/24/18 14:52 Dose: 50 mg Medical Necessity - Tobacco Use Smoking Status: Former smoker Assessment/Plan All Active Problems (Last Reviewed 06/25/18 @ 11:16 by Anabelle Ross) UTI (urinary tract infection) (Acute) UTI (urinary tract infection) (Acute) Unstable angina (Acute) Confusion (Acute) 1. UTI likely 2/2 BPH as he has had UTIs previously no sepsis (met only 1/4 SIRS criteria) ESBL E. coli. Change to Ertapenam. Will need prior authorization for home. No oral options available. Other IV alternatives are multiple times per day. Infusion center v Home 2. lactic acidosis resolved 3. BPH Had been on flomax in past, will resume follow up with urology as outpt for follow up. 4. DVT proph: LMWH 5. Disposition: pending coverage and plan for IV abx. Code Visit Inpatient E&M: 12500 Subs Hosp L2
--- NOTE | 2018-07-25 13:42 | DCINST_ITS ---
- Discharge Diagnoses Current Active Problems: Current Active and Chronic Problems (Last Reviewed 06/25/18 @ 11:16 by Anabelle Ross) UTI (urinary tract infection) (Acute) UTI (urinary tract infection) (Acute) Prostate enlargement (Chronic) You will use the following diet at home:: No restrictions Your food should be the consistency of: Regular Discharge Activity: Return to Normal Activity Call your doctor if you observe: Fever of 101 or Higher, Coldness, Increased Pain, Inability to urinate Allergies/Adverse Reactions: Allergies Sulfa (Sulfonamide Antibiotics) Allergy (Verified 07/24/18 01:13) Unknown ibuprofen [From Motrin] Adverse Reaction (Verified 07/24/18 01:13) Itching Medications to take at Discharge Esomeprazole Mag Trihydrate [Nexium] 40 mg PO DAILY 10/03/13 Potassium Chloride [Klor-Con 10] 40 meq PO DAILY 10/03/13 Multivitamins,Ther W-Minerals [Multivitamin With Minerals] 1 tab PO DAILY 12/10/13 Nitroglycerin [Nitrostat] 0.4 mg SUBLINGUAL Q5M PRN 12/10/13 Testosterone Cypionate [Depo-Testosterone] 100 mg IM Q7D 12/10/13 Aspirin E.C. [Ecotrin] 81 mg PO DAILY@0800 08/17/16 Meloxicam [Mobic] 7.5 mg PO DAILY 08/17/16 amlodipine 10 mg tablet 10 mg PO QDAY 06/09/17 Duloxetine Hcl [Cymbalta] 30 mg PO DAILY 10/30/17 Gabapentin [Neurontin] 300 mg PO QHS 10/30/17 losartan 25 mg tablet 25 mg PO DAILY #90 tab 05/30/18 metoprolol tartrate 25 mg tablet 25 mg PO BID #180 tab 05/30/18 Allopurinol 100 mg PO DAILY 07/23/18 Acetaminophen [Tylenol Tablet] 1,000 mg PO Q8H PRN tablet 07/25/18 Ertapenem Sod [Invanz] 1 gm IV Q24 vial 07/25/18 Primary Care Physician: Jagjit Myers MD [Primary Care Provider] - Within 2 Weeks Test Results: Test results from this visit will be discussed in further detail at your follow- up appointment, if applicable. Please Follow Up With: Infusion Center When: 07/26-07/31/18 Proposed Discharge Date: 07/25/18
--- NOTE | 2018-07-25 13:42 | PCM.DC.SUM ---
Discharge Date and Diagnosis - Problem List Patient Problems: Active and Suspected Problems (Last Reviewed 06/25/18 @ 11:16 by Anabelle Ross) UTI (urinary tract infection) (Acute) UTI (urinary tract infection) (Acute) Date of Admission: 07/24/18 Date of Discharge: 07/25/18 - Primary Discharge Diagnosis Active and Suspected Problems (Last Reviewed 06/25/18 @ 11:16 by Anabelle Ross) UTI (urinary tract infection) (Acute) UTI (urinary tract infection) (Acute) - Secondary Discharge Diagnosis Chronic Problems (Last Reviewed 06/25/18 @ 11:16 by Anabelle Ross) Prostate enlargement (Chronic) Dyspnea on exertion (Chronic) Claudication (Chronic) Presence of stent in coronary artery (Chronic ~08/2012) PTCA/stent to LAD 08/29 Essential hypertension (Chronic) Atherosclerotic heart disease of [place] coronary artery without angina pectoris (Chronic) Abnormal myocardial perfusion study (Chronic) H/O percutaneous transluminal coronary angioplasty (Chronic) HLD (hyperlipidemia) (Chronic) Abnormal stress test (Chronic) DEENA (obstructive sleep apnea) (Chronic) CAD (coronary atherosclerotic disease) (Chronic) PTCA/stent to LAD 08/29 Testosterone deficiency (Chronic) Obesity (Chronic) Pulmonary embolism (Chronic) Hospital Course and Treatment Imaging Results: Clinical Impression(s) from Imaging Studies Abdomen/Pelvis CT 07/23/18 21:13 IMPRESSION: The prostate is markedly enlarged measuring 7.7 x 7.4 x 7.6 cm. This is enlarged since prior study when it measured 6.3 x 6.7 x 6 cm. There is a penile prosthesis demonstrated. Recommend correlation with history. Diverticulosis no evidence of diverticulitis stable hepatic cysts Slightly greater sized right renal cyst when compared to prior study which is likely enlarged over time with persistent benign features. Could consider follow-up ultrasound when appropriate. Degenerative changes of the thoracolumbar spine stable sclerotic densities T10-T11. There is a mildly thickened appearance of the wall of the rectum which may related to peristalsis, cannot entirely exclude proctitis.. Electronically Signed: Brynn Lizama MD at 22:48 EST Tel , Service support , Operations: None Procedures: None Summary of Care Provided: The patient is a 62 year old M resents with abdominal pain and nausea and vomiting. Patient was found to have urinary tract infection as well as an elevated lactic acid. Clinically, the patient was not septic otherwise. Patient's urine culture came back showing ESBL E. coli. Urine culture likely due to urinary retention due to BPH. Patient was started on ertapenem for the urinary tract infection and 7 days. Unfortunately, given that no oral options were available, patient will need ertapenem to complete his course of antibiotics. Patient agreed to do so through the infusion center. Patient had been on Rocephin which unfortunately was resistant and ineffective against the E. coli. Patient still feels sick at this time but it was offered to keep the patient in the hospital until he feels better. Patient did receive 1 dose of ertapenem. Patient stated that he will be fine and to go home. Patient advised to return if he is feeling worse at all. But based on culture results and sensitivities, they are dependent is effective against his E. coli. [] Patient Problems: Active and Suspected Problems (Last Reviewed 06/25/18 @ 11:16 by Anabelle Ross) UTI (urinary tract infection) (Acute) UTI (urinary tract infection) (Acute) - Physical Exam Vital Signs Temp Pulse Resp BP Pulse Ox 36.9 C 73 18 157/75 H 100 07/25/18 10:00 07/25/18 10:10 07/25/18 10:00 07/25/18 10:10 07/25/18 10:00 Oxygen Delivery Method Room Air Weight: 153.2 kg Body Mass Index (BMI) 40.0 Intake and Output for Last 24 Hours 07/23/18 07/24/18 07/25/18 23:59 23:59 23:59 Intake Total 6832 / 6832 800 / 800 Output Total 2049 / 2049 Balance 4782 / 4782 800 / 800 Microbiology Past 72 Hours 07/23/18 20:58 Urine Culture - Preliminary Urine, Clean Catch Escherichia coli Laboratory Tests Past 24 Hrs 07/25/18 03:36 Lactic Acid 0.7 Discharge Diet: No Restrictions Discharge Activity: Return to Normal Activity Call your doctor if you observe: Fever of 101 or Higher, Coldness, Increased Pain, Inability to urinate Home Medications: Medications to take at Discharge Esomeprazole Mag Trihydrate [Nexium] 40 mg PO DAILY 10/03/13 Potassium Chloride [Klor-Con 10] 40 meq PO DAILY 10/03/13 Multivitamins,Ther W-Minerals [Multivitamin With Minerals] 1 tab PO DAILY 12/10/13 Nitroglycerin [Nitrostat] 0.4 mg SUBLINGUAL Q5M PRN 12/10/13 Testosterone Cypionate [Depo-Testosterone] 100 mg IM Q7D 12/10/13 Aspirin E.C. [Ecotrin] 81 mg PO DAILY@0800 08/17/16 Meloxicam [Mobic] 7.5 mg PO DAILY 08/17/16 amlodipine 10 mg tablet 10 mg PO QDAY 06/09/17 Duloxetine Hcl [Cymbalta] 30 mg PO DAILY 10/30/17 Gabapentin [Neurontin] 300 mg PO QHS 10/30/17 losartan 25 mg tablet 25 mg PO DAILY #90 tab 05/30/18 metoprolol tartrate 25 mg tablet 25 mg PO BID #180 tab 05/30/18 Allopurinol 100 mg PO DAILY 07/23/18 Acetaminophen [Tylenol Tablet] 1,000 mg PO Q8H PRN tablet 07/25/18 Ertapenem Sod [Invanz] 1 gm IV Q24 vial 07/25/18 Primary Care Physician: Jagjit Myers MD [Primary Care Provider] - Within 2 Weeks Please Follow Up With: Infusion Center When: 07/26-07/31/18 Disposition: Home Minutes spent on discharge:: 34 Patient Condition:: Fair Medical Necessity - Tobacco Use Smoking Status: Former smoker Meaningful Use Info Meaningful Use Diagnoses (Choose all that apply): None applicable Code Visit Inpatient E&M: 65858 Disch Hosp
--- NOTE | 2018-07-25 15:34 | CASEMGMT ---
Patient said he has healthcare POA and healthcare LW. He thought they were on file. SW let him know they are not. Chapis ESTEVEZ MSW
== END 2018-07-25 15:08 | disposition home or self-care (01) ==
LOC: ED 20:51 → PCU 07-24 00:34
PROVIDERS: Hospitalist; Admitting Provider Family Medicine; Emergency Provider Emergency Medicine; Family Provider Family Medicine; PCP Family Medicine; Referring Provider Family Medicine
DX: N39.0 Urinary tract infection, site not specified (principal); N40.0 Benign prostatic hyperplasia without lower urinary tract symptoms; Z95.5 Presence of coronary angioplasty implant and graft; I10 Essential (primary) hypertension; G47.33 Obstructive sleep apnea (adult) (pediatric); I25.10 Atherosclerotic heart disease of native coronary artery without angina pectoris; E66.9 Obesity, unspecified; E78.5 Hyperlipidemia, unspecified; K21.9 Gastro-esophageal reflux disease without esophagitis; M79.7 Fibromyalgia; Z79.899 Other long term (current) drug therapy; Z79.82 Long term (current) use of aspirin; Z87.891 Personal history of nicotine dependence; Z68.41 Body mass index [BMI] 40.0-44.9, adult; Z71.3 Dietary counseling and surveillance; Z86.711 Personal history of pulmonary embolism; B96.20 Unspecified Escherichia coli [E. coli] as the cause of diseases classified elsewhere; Z16.12 Extended spectrum beta lactamase (ESBL) resistance
CPT/HCPCS: 36415; 74176; 80053; 81001; 83605; 84153; 85025; 85027; 85610; 85730; 87040; 87077; 87086; 87088; 87186; 94762; 96361; 96365; 96366; 96367; 96372; 96375; 96376; 99218; 99284; J7030; A4216; G0378; J2405

== ENCOUNTER 2018-07-25 21:43 | Inpatient (IN) | payer OTHER, SELFPAY ==
[2018-07-24 00:56] VITALS: BMI 40.0
[2018-07-25 21:44] VITALS: BP 136/58; PULSE 88; RESP 16; TEMP 38.6; O2SAT 95; BMI 45.8
[2018-07-25] MEDS: 0.9% Normal Saline 1,000 ML 999 ML IV ×2 (22:31)
[2018-07-25] MEDS: Ondansetron 4 MG/2 ML Vial IV (22:38)
[2018-07-25 22:39] VITALS: BP 158/70; PULSE 78; RESP 18; TEMP 38.6; O2SAT 95
--- NOTE | 2018-07-25 22:40 | ED.VISSUMM ---
- ER Visit Summary Date of Service: 07/25/18 Chief Complaint: Fever History of Present Illness: The patient is a 62 M who presents to the emergency department tonight with fever. Patient was admitted on Monday with UTI and sepsis. Urine culture came back with ESBL E. coli. Patient was given a dose of ertapenem today. The patient states that he talked to the hospitalist into letting him go. He wanted to be home because his is having clavicular surgery tomorrow. Tonight he developed fever up to 103.3. He also notes headache nausea continued dysuria. He states that his urine stream is more dribbling but he is emptying his bladder. He has a known history of prostatic enlargement. Physical Examination: Temperature 101.4 heart rate is 78 respirations are 18 blood pressure 158/70 pulse ox 95% on room air Gen: Well-nourished well-developed Head: Normocephalic atraumatic Eyes: Perrl EOMI ENT: TMs clear no rhinorrhea moist mucous membranes Neck: Supple no lymphadenopathy no JVD nontender CVS: Regular rate rhythm no murmurs normal S1-S2 Respiratory: No distress clear to auscultation bilaterally chest nontender Abdomen: Soft nontender nondistended normal bowel sounds no masses Back: Nontender Extremity: Nontender no edema Skin: Normal color no rash patient is diaphoretic Neuro: alert orientated ?3 CN II-XII intact normal strength sensation reflexes the patient appears very tired and his answers are slow and he gets confused with basic questioning P Test Results: White count is 10. Influenza is negative. Creatinine is normal. Urinalysis does show some continued infection. Lactic acid is normal. Emergency Department Course and Treatment: Patient received IV fluids. He is already had a ertapenem today. The patient appears clinically ill and in my opinion would benefit from further inpatient care as was noted in the hospitalist note this morning. Impression: 1. UTI 2. Sepsis This note was generated with [employer] dictation software. It may contain incorrect words, spelling, and punctuation that were not noted in review of the chart prior to signing ED Disposition - Plan for ED Patient: Referrals: Jagjit Myers MD [Primary Care Provider] -
[2018-07-25 22:55] VITALS: TEMP 38.2
[2018-07-25 22:55] LABS: Absolute Lymphocyte Count 0.32 X10^3/ul (0.83-4.51); Absolute Neutrophil Count 9.5 X10^3/uL (2.0-7.7); Basophil# 0.01 X10^3/uL; Basophil% 0.1 % (0-1); Hematocrit 44.4 % (40-54); Hemoglobin 14.8 g/dl (13.0-16.5); Lymphocyte # 0.32 X10^3/ul (4.0); Mean Corp Hgb Conc 33.3 g/gl (32-36); Mean Corpuscular Volume 84.1 fL (80-94); Mean Platelet Vol. 11.1 fl (6.2-12.0); Monocyte# 0.78 X10^3/uL; Monocyte% 7.3 % (0-10); Neutrophil # 9.51 X10^3/uL (2.7-7.7); Neutrophil % 89.3 % (47-70); Platelet Count 78 K/mm3 (150-450); RBC Distribution Width CV 14.2 % (11.6-14.6); RBC Distribution Width SD 44.1 fl (35.1-43.9); Red Blood Count 5.28 M/mm3 (4.6-6.2); White Blood Count 10.7 K/mm3 (4.4-11.0)
[2018-07-25 22:57] LABS: Differential Indicated SCAN CRITERIA MET; POSITIVE COUNT NO; POSITIVE DIFFERENTIAL YES; POSITIVE MORPHOLOGY NO
[2018-07-25 23:00] VITALS: BP 164/72; PULSE 80; RESP 18; TEMP 38.2; O2SAT 95
[2018-07-25 23:00] LABS: International Normalized Ratio 1.2; Prothrombin Time (Protime)PT. 14.8 SECONDS (11.7-14.9)
[2018-07-25 23:01] LABS: Partial Thromboplast Time 34.9 Seconds (24.1-36.2)
[2018-07-25 23:02] LABS: Red Blood Cells-Urine 0 SEEN /hpf (0-5); Squamous Epithelial Cells - UA 0 SEEN /hpf (0-5)
[2018-07-25 23:04] LABS: ALB/GLOB Ratio 0.9 RATIO (0.9-2.4); AST(SGOT) 20 U/L (15-37); Alanine Aminotransfer ALT/SGPT 36 U/L (16-61); Alkaline Phosphatase 70 U/L (45-117); Anion Gap 9 (5-15); BUN 15 mg/dL (7-18); BUN/Creat Ratio 12.4 RATIO (10-20); Calcium,Total 7.8 mg/dL (8.5-10.1); Chloride 105 mmol/L (98-107); Creatinine, Serum 1.21 mg/dL (0.70-1.30); EST Glomerular Filtration Rate 65 mL/min (>60); Est Glom Filt Rate - Afr Amer 78 mL/min (>60); Estimated Creatinine Clearance 71.26 ml/min; Globulin 3.5 g/dL (2.2-4.2); Glucose 151 mg/dL (74-106); Potassium 3.6 mmol/L (3.5-5.1); Protein, Total 6.5 g/dL (6.4-8.2); Sodium Level 136 mmol/L (136-145)
[2018-07-25 23:06] LABS: Color, Urine Yellow (Yellow); Glucose, Dipstick Normal (Normal); Ketone-Dipstick 50 mg/dl (Negative); Leukocyte Esterase-Dipstick 25 /ul (Negative); Nitrite-Dipstick Negative (Negative); Occult Blood-Urine 25 /ul (Negative); Protein-Dipstick 100 mg/dl (Negative); Specific Gravity, Urine 1.015 (1.002-1.030); Urine Clarity Clear (Clear); Urine Urobilinogen 1 mg/dl (Normal)
--- NOTE | 2018-07-25 23:09 | EKG12_ITS ---
Test Reason : GEN ILLNESS Blood Pressure : / mmHG Vent. Rate : 078 BPM Atrial Rate : 078 BPM P-R Int : 242 ms QRS Dur : 088 ms QT Int : 362 ms P-R-T Axes : 052 -39 044 degrees QTc Int : 412 ms Sinus rhythm with 1st degree A-V block Left axis deviation Minimal voltage criteria for LVH, may be normal variant Abnormal ECG Confirmed by ELENA CONTI, SUNG ([id number]), development editor ORLANDO MARKS ([id number]) on 07/30/2018 10:10:46 AM Referred By: Dustin Worley Confirmed By:SUNG PARKER MD
[2018-07-25 23:14] LABS: Bacteria RARE /hpf (None Seen); Urine Bilirubin Dipstick 1 mg/dL (Negative)
[2018-07-25 23:15] LABS: White Blood Cells 5-10 SEEN /hpf (0-5)
[2018-07-25 23:16] LABS: Mucous, Urine 1+ /hpf (<or=2+)
[2018-07-25 23:19] LABS: Platelet Estimate MOD DEC (ADEQ); Red Cell Morphology NORM C+C NORMAL (NORM C&C)
--- NOTE | 2018-07-25 23:20 | RAD_ITS ---
HISTORY: PT ARRIVES TO ED FOR FEVER, DIAPHRESIS, HEADACHE, AND ABD PAIN EXAM: XR Chest 1 View: COMPARISON: None FINDINGS: # of images incl. paperwork: 2 LINES/DEVICES: None. LUNGS: Mild bibasilar atelectasis. No consolidation, edema or effusion. No pneumothorax. MEDIASTINUM AND CARDIOVASCULAR STRUCTURES: Cardiac silhouette not enlarged. Central airways and mediastinal contour are unremarkable. BONES AND SOFT TISSUES: Unremarkable. RAD/Chest 1 View (Portable) IMPRESSION: No radiographic evidence of acute cardiopulmonary disease. at 0021 Reported and signed by: Benji Lara MD Electronically Signed: Benji Lara, at 0:20 EST Tel , Service support ,
--- NOTE | 2018-07-25 23:46 | HP.PCM_ITS ---
Problem List (1) Acute pyelonephritis Status: Acute History of Present Illness Date of Admission: 07/25/18 Chief Complaint: fever and chills The patient is a 62 year old M with a significant history of hypertension; CAD status post stent; obstructive sleep apnea; and benign prostate hyperplasia returning to our hospital on the same day of discharge with fever and chills. On 07/24/2018 patient was admitted and diagnosed with urinary tract infection. He was treated with Rocephin and because urine culture returned as ESBL E. coli antibiotics was escalated to ertapenem. Because patient's was scheduled for surgery, patient requested that he be discharged home so that he can support his . The plan was that patient would receive ertapenem at infusion center. However upon going home patient continued to have chills and fever. He reported a home temperature of 103.3. At his recent hospital discharge, patient was instructed that if he is not feeling well he could come back to the hospital. Subsequently he returned to our hospital. On his previous admission his lactic acid was 3.6. However on his return his lactic acid was 1.0. He reports persistent dysuria and increase urinary frequency which he attributes to prostate enlargement. At the ED patient was noted to have a maximum temperature of 101.4. Initial troponin was elevated at 0.134. His total bilirubin remain elevated as 1.60, as previous. His albumin level was low at 3.0. And his calcium was corresponding low at 7.8. His urinalysis was abnormal with increased protein; ketones; occult blood; bilirubin; urobilinogen and urine leukocyte esterase. He had rare bacteria in his urine and there was no squamous cells. Further he reports bilateral lower abdominal pain and constipation for the last 3 days. He reports that milk of magnesia and stool softener has not helped. He reported that the last time he took his stool softener was few hours before presentation. Past Medical History Past Medical History (Chronic Problems): Chronic Problems (Last Reviewed 07/26/18 @ 00:55 by Dustin Worley MD) Prostate enlargement (Chronic) Dyspnea on exertion (Chronic) Claudication (Chronic) Presence of stent in coronary artery (Chronic ~08/2012) PTCA/stent to LAD 08/29 Essential hypertension (Chronic) Atherosclerotic heart disease of [place] coronary artery without angina pectoris (Chronic) Abnormal myocardial perfusion study (Chronic) H/O percutaneous transluminal coronary angioplasty (Chronic) HLD (hyperlipidemia) (Chronic) Abnormal stress test (Chronic) DEENA (obstructive sleep apnea) (Chronic) CAD (coronary atherosclerotic disease) (Chronic) PTCA/stent to LAD 08/29 Testosterone deficiency (Chronic) Obesity (Chronic) Pulmonary embolism (Chronic) Medical History: Medical History (Last Reviewed 07/26/18 @ 00:55 by Dustin Worley MD) Essential hypertension (Chronic) I10 Atherosclerotic heart disease of [place] coronary artery without angina pectoris (Chronic) I25.10 Abnormal myocardial perfusion study (Chronic) R94.39 H/O percutaneous transluminal coronary angioplasty (Chronic) Z98.61 HLD (hyperlipidemia) (Chronic) E78.5 Abnormal stress test (Chronic) R94.39 DEENA (obstructive sleep apnea) (Chronic) G47.33 TIA (transient ischemic attack) G45.9 BPH (benign prostatic hyperplasia) N40.0 Fibromyalgia M79.7 GERD (gastroesophageal reflux disease) K21.9 HTN (hypertension) (Inactive) I10 Allergies Sulfa (Sulfonamide Antibiotics) Allergy (Verified 07/25/18 21:48) Unknown ibuprofen [From Motrin] Adverse Reaction (Verified 07/25/18 21:48) Itching Home Medications: Ambulatory Orders Medication Instructions Recorded Esomeprazole Mag Trihydrate 40 mg PO DAILY 10/03/13 [Nexium] Potassium Chloride [Klor-Con 10] 40 meq PO DAILY 10/03/13 Multivitamins,Ther W-Minerals 1 tab PO DAILY 12/10/13 [Multivitamin With Minerals] Nitroglycerin [Nitrostat] 0.4 mg SUBLINGUAL Q5M PRN 12/10/13 Aspirin E.C. [Ecotrin] 81 mg PO DAILY@0800 08/17/16 Meloxicam [Mobic] 7.5 mg PO DAILY 08/17/16 amlodipine 10 mg tablet 10 mg PO QDAY 06/09/17 Duloxetine Hcl [Cymbalta] 30 mg PO DAILY 10/30/17 Gabapentin [Neurontin] 300 mg PO QHS 10/30/17 losartan 25 mg tablet 25 mg PO DAILY #90 tab 05/30/18 metoprolol tartrate 25 mg tablet 25 mg PO BID #180 tab 05/30/18 Allopurinol 100 mg PO DAILY 07/23/18 Acetaminophen [Tylenol Tablet] 1,000 mg PO Q8H PRN tablet 07/25/18 Ertapenem Sod [Invanz] 1 gm IV Q24 vial 07/25/18 Surgical History: Surgical History (Last Reviewed 07/26/18 @ 00:55 by Dustin Worley MD) Presence of stent in coronary artery (Chronic) Onset Date: ~08/2012 Z95.5 PTCA/stent to LAD 08/29 History of PTCA Onset Date: ~08/2012 Z98.61 PTCA/stent to LAD History of left heart catheterization (LHC) Z98.890 01/2007, 12/2012, 11/2013 History of repair of rotator cuff Z98.890 History of tonsillectomy and adenoidectomy Z98.890 Surgical History: angioplasty Psychiatric History: No pertinent psych hx Lives: Spouse/ Significant Other Smoking Status: Former smoker Alcohol: Rare - *Family History Maternal Family History: Family History (Last Reviewed 07/26/18 @ 00:55 by Dustin Worley MD) Mother CAD (coronary artery disease) Hypertension Hx of CABG Father Hypertension Myocardial infarction Grandfather Myocardial infarction Grandmother Cancer Grandfather CAD (coronary artery disease) History Items: Heart Disease Paternal Family History: Family History (Last Reviewed 07/26/18 @ 00:55 by Dustin Worley MD) Mother CAD (coronary artery disease) Hypertension Hx of CABG Father Hypertension Myocardial infarction Grandfather Myocardial infarction Grandmother Cancer Grandfather CAD (coronary artery disease) History Items: Heart Disease Review of Systems Constitutional: Reports: Anorexia, Chills, Fever, Malaise, Weakness HEENT: Denies: Head Aches, Sinus Congestion, Sinus Drainage Cardiovascular: Denies: Chest Pain, Palpitations Respiratory: Reports: Shortness of Breath. Denies: Cough, Sputum production Gastrointestinal: Reports: Abdominal Pain, Constipation, Nausea. Denies: Vomiting Genitourinary: Reports: Dysuria, Frequency - Increased Musculoskeletal: Denies: Joint Pain, Joint Tenderness Skin: Denies: Rash, Wounds Neurological: Denies: Numbness, Tingling, Focal weakness Psychiatric: Reports: Anxiety, Depression. Denies: Homicidal Ideations, Suicidal Ideations Hematologic/ Lymphatic: Denies: Easy Bruising, Easy Bleeding VTE Information - Inpt Only VTE Present on Admission: No VTE Mechan Device Prophylaxis: None VTE Pharm Prophylaxis ordered?: Yes Patient Problems: Active and Suspected Problems (Last Reviewed 07/26/18 @ 00:55 by Dustin Worley MD) Fever (Acute) Fever and chills (Acute) Acute pyelonephritis (Acute) - Physical Exam General: Alert, Oriented x3, Cooperative HEENT: Atraumatic, PERRLA, EOMI, Normocephalic Neck: Supple, No JVD, Negative Carotid Bruits Lungs: Clear to auscultation, Normal air movement Cardiovascular: Regular rate, No murmurs Abdomen: Soft, Non Tender, Hyperactive Bowel Sounds Extremities: No edema, Capillary Refill Less than 3 Seconds Skin: No rashes, No breakdown Musculoskeletal: No Tenderness to Palpation of Joints or Extremities Neurological: Neuro grossly intact Psych/Mental Status: Normal Affect, Appropriate Vital Signs Temp Pulse Resp BP Pulse Ox 100.8 F H 80 18 164/72 H 95 07/25/18 23:00 07/25/18 23:00 07/25/18 23:00 07/25/18 23:00 07/25/18 23:00 Oxygen Delivery Method Room Air Weight: 153.4 kg Body Mass Index (BMI) 45.8 Microbiology Past 72 Hours 07/25/18 22:35 Influenza Types A,B Direct FA (DARRELL) - Final Mucosa - Nose Laboratory Tests Past 24 Hrs 07/25/18 07/25/18 07/25/18 22:30 22:30 22:30 WBC 10.7 RBC 5.28 Hgb 14.8 Hct 44.4 MCV 84.1 MCH 28.0 MCHC 33.3 RDW 14.2 RDW Differential 44.1 H Plt Count 78 L MPV 11.1 Immature Gran % (Auto) 0.300 Neut % (Auto) 89.3 H Lymph % (Auto) 3.0 L [place] % (Auto) 7.3 Eos % (Auto) 0.0 Baso % (Auto) 0.1 Absolute Neuts (auto) 9.5 H Absolute Lymphs (auto) 0.32 L Total Counted Not Reportable Differential Comment SEE COMMENT Platelet Estimate MOD DEC RBC Morphology NORM C+C PT 14.8 INR 1.2 APTT 34.9 Sodium 136 Potassium 3.6 Chloride 105 Carbon Dioxide 22.0 Anion Gap 9 BUN 15 Creatinine 1.21 Estim Creat Clear Calc 71.26 Est GFR (MDRD) Af Amer 78 Est GFR (MDRD) Non-Af 65 BUN/Creatinine Ratio 12.4 Glucose 151 H Lactic Acid Calcium 7.8 L Total Bilirubin 1.60 H AST 20 ALT 36 Alkaline Phosphatase 70 Troponin I 0.134 H Total Protein 6.5 Albumin 3.0 L Globulin 3.5 Albumin/Globulin Ratio 0.9 Urine Color Urine Clarity Urine pH Ur Specific [place] Urine Protein Urine Glucose (UA) Urine Ketones Urine Occult Blood Urine Nitrite Urine Bilirubin Urine Urobilinogen Ur Leukocyte Esterase Urine RBC Urine WBC Ur Squamous Epith Cells Urine Bacteria Urine Mucus 07/25/18 07/25/18 22:30 22:40 WBC RBC Hgb Hct MCV MCH MCHC RDW RDW Differential Plt Count MPV Immature Gran % (Auto) Neut % (Auto) Lymph % (Auto) [place] % (Auto) Eos % (Auto) Baso % (Auto) Absolute Neuts (auto) Absolute Lymphs (auto) Total Counted Differential Comment Platelet Estimate RBC Morphology PT INR APTT Sodium Potassium Chloride Carbon Dioxide Anion Gap BUN Creatinine Estim Creat Clear Calc Est GFR (MDRD) Af Amer Est GFR (MDRD) Non-Af BUN/Creatinine Ratio Glucose Lactic Acid 1.0 Calcium Total Bilirubin AST ALT Alkaline Phosphatase Troponin I Total Protein Albumin Globulin Albumin/Globulin Ratio Urine Color Yellow Urine Clarity Clear Urine pH 8.0 Ur Specific [place] 1.015 Urine Protein 100 H Urine Glucose (UA) Normal Urine Ketones 50 H Urine Occult Blood 25 H Urine Nitrite Negative Urine Bilirubin 1 H Urine Urobilinogen 1 H Ur Leukocyte Esterase 25 H Urine RBC 0 SEEN Urine WBC 5-10 SEEN Ur Squamous Epith Cells 0 SEEN Urine Bacteria RARE Urine Mucus 1+ Assessment/Plan All Active Problems (Last Reviewed 07/26/18 @ 00:55 by Dustin Worley MD) UTI (urinary tract infection) (Acute) UTI (urinary tract infection) (Acute) Fever (Acute) Fever and chills (Acute) Acute pyelonephritis (Acute) Confusion (Resolved) The patient is a 62 year old M with a significant history of hypertension; CAD status post stent; obstructive sleep apnea; benign prostate hyperplasia returning to our hospital on the same day of discharge with fever; chills abnormal urinalysis consistent with unresolved acute pyelonephritis. Acute pyelonephritis Urine culture obtained on 07/23/18 showed E. coli ESBL. With persistent fever chills and abnormal urinalysis with ESBL E. coli is likely patient has acute pyelonephritis. Admission his white counts was 10.7. Review of previous records shows that on 07/24/2018 his white count was 19.4; and on 07/23/1910/06/2018 his white count was 22.1. We will continue patient on ertapenem. Trend CBC and BMP. Influenza screen at the ED was unremarkable. Blood cultures x2 obtained on presentation (07/25/18) are pending. Blood culture obtained on prior admission (07/23/18) is pending. Received IV fluid bolus at emergency department. Normal saline maintenance infusion ordered. Elevated troponin Troponin on admission was elevated at 0.134 (normal < 0.045) Patient has a history of CAD with stents. However at the time of admission he denied any chest pain. Likely due this is a type II [place] from demand ischemia. Trend troponin. Pseudo-hypocalcemia Calcium on admission was 7.8. Albumin is 3.0 Corrected calcium is 10.8. Bilirubinemia. His total bilirubin on admission was 1.60. Review of old records show that for 2 days in a row his bilirubin has remained elevated at 1.60. Likely due to infection. Treat acute pyelonephritis as above. Constipation Since patient has received milk of magnesia and stool soft, and his bowels have not moved it was discussed with patient the possibility of trying a suppository. However patient declined suppository and requested some more time to see if his bowels would move. He was agreeable to MiraLAX. MiraLAX ordered. Hypertension On admission his blood pressure was not within goal. Losartan and metoprolol continued. PRN labetalol ordered. Trend blood pressures and adjust blood pressure medication. Gout: Allopurinol continued. GERD: PPI continued Obstructive Sleep apnea: CPAP nightly per home setting. DVT prophylaxis: Subcutaneous heparin. Code Visit Inpatient E&M: 08331 Init Hosp L3
[2018-07-26] VITALS (22 sets, daily range): BP systolic 136–166; BP diastolic 67–88; PULSE 70–92; RESP 16–18; TEMP 37.4–40.2; O2SAT 95–98; BMI 39.8
[2018-07-26] MEDS: 0.9% Normal Saline 1,000 ML 100 ML IV ×2 (00:55→14:19)
[2018-07-26] MEDS: Acetaminophen 500 MG Tablet 1000 MG PO ×3 (01:13→18:22)
[2018-07-26 04:59] LABS: Anion Gap 9 (5-15); BUN 14 mg/dL (7-18); BUN/Creat Ratio 9.8 RATIO (10-20); Calcium,Total 7.7 mg/dL (8.5-10.1); Chloride 106 mmol/L (98-107); Creatinine, Serum 1.43 mg/dL (0.70-1.30); EST Glomerular Filtration Rate 54 mL/min (>60); Est Glom Filt Rate - Afr Amer 65 mL/min (>60); Estimated Creatinine Clearance 69.23 ml/min; Glucose 143 mg/dL (74-106); Potassium 3.6 mmol/L (3.5-5.1); Sodium Level 139 mmol/L (136-145)
[2018-07-26] MEDS: Heparin Injection (Vial) 5,000 UNIT/ML VIAL 5000 UNIT SC (05:25)
--- NOTE | 2018-07-26 08:05 | CASEMGMT ---
Call to Gabriella in the infusion center and she is updated on pt admission to hospital and that he will have Ertapenem infusion there at 1030 today, voices understanding. This RN CM advised Gabriella that we will keep them updated on pt discharge plans, voices understanding. SStchristiano ZIMMERMAN CM
--- NOTE | 2018-07-26 10:09 | CASEMGMT ---
Readmission chart review: Pt was initially admitted 07/23/18-07/25/18 for ESBL/E coli UTI and was discharged yesterday with outpt iv antibx set up with [facility] infusion clinic. Pt did have fever at discharge but pt still wanted to be discharged, although daughter was reluctant. Pt then returned to [facility] ED at 2144 with fever, PICHARDO, and abd pain. See CM assessment from 07/24/18 completed by Omari WHITMORE. CM to follow for any further discharge planning/needs and will notify OP infusion when pt to be discharged. SStchristiano RN CM
[2018-07-26] MEDS: amLODIPine 10 MG Tablet PO (10:46)
[2018-07-26] MEDS: Pantoprazole Sodium 40 MG Tablet PO (10:46)
[2018-07-26] MEDS: Multivitamins,Ther W-Minerals Tablet 1 TABLET PO (10:46)
[2018-07-26] MEDS: Polyethylene Glycol 3350 17 GM PACKET PO (10:46)
[2018-07-26] MEDS: Aspirin E.C. 81 MG Tablet PO (10:46)
[2018-07-26] MEDS: DULoxetine Hcl 30 MG Capsule PO (10:47)
[2018-07-26] MEDS: Allopurinol 100 MG Tablet PO (10:47)
[2018-07-26] MEDS: Metoprolol Tartrate 25 MG Tablet PO ×2 (10:47→21:43)
--- NOTE | 2018-07-26 12:48 | PCM.PROGNOTE ---
<Ramirez Dominguez - Last Filed: 07/26/18 12:48> Patient Problems: Active and Suspected Problems (Last Reviewed 07/26/18 @ 00:55 by Dustin Worley MD) Fever (Acute) Fever and chills (Acute) Acute pyelonephritis (Acute) Subjective: Pt has ongoing fevers up to 103 this AM, and has had chills. He has difficulty emptying his bladder. He has known BPH and states he sees a urologist - Dr. Harvey. He has no CP or SOB. He does report BL flank pain. - Physical Exam General: Alert, Oriented x3, Cooperative HEENT: Atraumatic, PERRLA, EOMI, Normocephalic Neck: Supple, No JVD, Negative Carotid Bruits Lungs: Clear to auscultation, Normal air movement Cardiovascular: Regular rate, No murmurs Abdomen: Bowel Sounds Present, Soft, Non Tender, Obese, - - no CVA tenderness Extremities: No edema, Capillary Refill Less than 3 Seconds Skin: No rashes, No breakdown Musculoskeletal: No Tenderness to Palpation of Joints or Extremities Neurological: Cranial nerves II-XII grossly intact Psych/Mental Status: Normal Affect, Appropriate, Alert and oriented to time, place, person, mood and affect Vital Signs Temp Pulse Resp BP Pulse Ox 101.2 F H 73 18 149/67 H 97 07/26/18 10:41 07/26/18 12:17 07/26/18 10:41 07/26/18 10:47 07/26/18 10:50 Oxygen Delivery Method Room Air Weight: 335 lb 15.752 oz Body Mass Index (BMI) 39.8 Intake and Output for Last 24 Hours 07/24/18 07/25/18 07/26/18 23:59 23:59 23:59 Intake Total 2031 Balance 2031 Microbiology Past 72 Hours 07/25/18 22:35 Influenza Types A,B Direct FA (DARRELL) - Final Mucosa - Nose Laboratory Tests Past 24 Hrs 07/25/18 07/25/18 07/25/18 22:30 22:30 22:30 WBC 10.7 RBC 5.28 Hgb 14.8 Hct 44.4 MCV 84.1 MCH 28.0 MCHC 33.3 RDW 14.2 RDW Differential 44.1 H Plt Count 78 L MPV 11.1 Immature Gran % (Auto) 0.300 Neut % (Auto) 89.3 H Lymph % (Auto) 3.0 L [place] % (Auto) 7.3 Eos % (Auto) 0.0 Baso % (Auto) 0.1 Absolute Neuts (auto) 9.5 H Absolute Lymphs (auto) 0.32 L Total Counted Not Reportable Differential Comment SEE COMMENT Platelet Estimate MOD DEC RBC Morphology NORM C+C PT 14.8 INR 1.2 APTT 34.9 Sodium 136 Potassium 3.6 Chloride 105 Carbon Dioxide 22.0 Anion Gap 9 BUN 15 Creatinine 1.21 Estim Creat Clear Calc 71.26 Est GFR (MDRD) Af Amer 78 Est GFR (MDRD) Non-Af 65 BUN/Creatinine Ratio 12.4 Glucose 151 H Lactic Acid Calcium 7.8 L Total Bilirubin 1.60 H AST 20 ALT 36 Alkaline Phosphatase 70 Troponin I 0.134 H Total Protein 6.5 Albumin 3.0 L Globulin 3.5 Albumin/Globulin Ratio 0.9 Urine Color Urine Clarity Urine pH Ur Specific [place] Urine Protein Urine Glucose (UA) Urine Ketones Urine Occult Blood Urine Nitrite Urine Bilirubin Urine Urobilinogen Ur Leukocyte Esterase Urine RBC Urine WBC Ur Squamous Epith Cells Urine Bacteria Urine Mucus 07/25/18 07/25/18 07/26/18 22:30 22:40 01:30 WBC RBC Hgb Hct MCV MCH MCHC RDW RDW Differential Plt Count MPV Immature Gran % (Auto) Neut % (Auto) Lymph % (Auto) [place] % (Auto) Eos % (Auto) Baso % (Auto) Absolute Neuts (auto) Absolute Lymphs (auto) Total Counted Differential Comment Platelet Estimate RBC Morphology PT INR APTT Sodium Potassium Chloride Carbon Dioxide Anion Gap BUN Creatinine Estim Creat Clear Calc Est GFR (MDRD) Af Amer Est GFR (MDRD) Non-Af BUN/Creatinine Ratio Glucose Lactic Acid 1.0 Calcium Total Bilirubin AST ALT Alkaline Phosphatase Troponin I 0.157 H Total Protein Albumin Globulin Albumin/Globulin Ratio Urine Color Yellow Urine Clarity Clear Urine pH 8.0 Ur Specific [place] 1.015 Urine Protein 100 H Urine Glucose (UA) Normal Urine Ketones 50 H Urine Occult Blood 25 H Urine Nitrite Negative Urine Bilirubin 1 H Urine Urobilinogen 1 H Ur Leukocyte Esterase 25 H Urine RBC 0 SEEN Urine WBC 5-10 SEEN Ur Squamous Epith Cells 0 SEEN Urine Bacteria RARE Urine Mucus 1+ 07/26/18 04:24 WBC RBC Hgb Hct MCV MCH MCHC RDW RDW Differential Plt Count MPV Immature Gran % (Auto) Neut % (Auto) Lymph % (Auto) [place] % (Auto) Eos % (Auto) Baso % (Auto) Absolute Neuts (auto) Absolute Lymphs (auto) Total Counted Differential Comment Platelet Estimate RBC Morphology PT INR APTT Sodium 139 Potassium 3.6 Chloride 106 Carbon Dioxide 24.0 Anion Gap 9 BUN 14 Creatinine 1.43 H Estim Creat Clear Calc 69.23 Est GFR (MDRD) Af Amer 65 Est GFR (MDRD) Non-Af 54 L BUN/Creatinine Ratio 9.8 L Glucose 143 H Lactic Acid Calcium 7.7 L Total Bilirubin AST ALT Alkaline Phosphatase Troponin I 0.092 H Total Protein Albumin Globulin Albumin/Globulin Ratio Urine Color Urine Clarity Urine pH Ur Specific [place] Urine Protein Urine Glucose (UA) Urine Ketones Urine Occult Blood Urine Nitrite Urine Bilirubin Urine Urobilinogen Ur Leukocyte Esterase Urine RBC Urine WBC Ur Squamous Epith Cells Urine Bacteria Urine Mucus Medical Necessity - Tobacco Use Smoking Status: Former smoker Assessment/Plan All Active Problems (Last Reviewed 07/26/18 @ 00:55 by Dustin Worley MD) UTI (urinary tract infection) (Acute) UTI (urinary tract infection) (Acute) Fever (Acute) Fever and chills (Acute) Acute pyelonephritis (Acute) Confusion (Resolved) 1. UTI 2/2 ESBL E coli - sensitive to ertapenim - on sheyla. Continue. + fevers. No WBC elevation, negative lactate. + flank pain so possibly pyelo, however no CVA tenderness. 2. Increasing creatinine - start fluids. Trend. 3. CAD with Indeterminate troponin - unclear etiology - no chest pain. 4. HTN - mildly elevated 5. GERD - ppi 6. DEENA - cpap qhs DVT ppx: dc heparin 2/2 thrombocytopenia - start SCDs. He does have chronic thrombocytopenia DC planning: possibly home when defervescence. This patient was seen by Ramirez Dominguez PA-C under the supervision of Dr. Blake <Nahum Blake - Last Filed: 07/26/18 16:04> Subjective: Feels better overall. No chest pain. No shortness of breath. - Physical Exam General: Alert, Cooperative, - - Diaphoretic HEENT: Atraumatic, Normocephalic Oral: Moist Mucosa, No Gingival or Mucosal Lesions/ Ulcerations Neck: No Nodes, Thyroid Normal Size and Texture Lungs: Clear to auscultation, Normal air movement, No rhonchi, No wheeze Cardiovascular: Regular rate, Regular Rhythm, Normal S1, Normal S2, No murmurs Abdomen: Bowel Sounds Present, Soft, Non Tender, - Psych/Mental Status: Normal Affect, Appropriate Vital Signs Temp Pulse Resp BP Pulse Ox 37.4 C H 74 18 150/68 H 95 07/26/18 14:24 07/26/18 15:40 07/26/18 14:24 07/26/18 14:24 07/26/18 14:24 Oxygen Delivery Method Room Air Weight: 152.4 kg Body Mass Index (BMI) 39.8 Intake and Output for Last 24 Hours 07/24/18 07/25/18 07/26/18 23:59 23:59 23:59 Intake Total 2031 Balance 2031 Microbiology Past 72 Hours 07/25/18 22:35 Influenza Types A,B Direct FA (DARRELL) - Final Mucosa - Nose Laboratory Tests Past 24 Hrs 07/25/18 07/25/18 07/25/18 22:30 22:30 22:30 WBC 10.7 RBC 5.28 Hgb 14.8 Hct 44.4 MCV 84.1 MCH 28.0 MCHC 33.3 RDW 14.2 RDW Differential 44.1 H Plt Count 78 L MPV 11.1 Immature Gran % (Auto) 0.300 Neut % (Auto) 89.3 H Lymph % (Auto) 3.0 L [place] % (Auto) 7.3 Eos % (Auto) 0.0 Baso % (Auto) 0.1 Absolute Neuts (auto) 9.5 H Absolute Lymphs (auto) 0.32 L Total Counted Not Reportable Differential Comment SEE COMMENT Platelet Estimate MOD DEC RBC Morphology NORM C+C PT 14.8 INR 1.2 APTT 34.9 Sodium 136 Potassium 3.6 Chloride 105 Carbon Dioxide 22.0 Anion Gap 9 BUN 15 Creatinine 1.21 Estim Creat Clear Calc 71.26 Est GFR (MDRD) Af Amer 78 Est GFR (MDRD) Non-Af 65 BUN/Creatinine Ratio 12.4 Glucose 151 H Lactic Acid Calcium 7.8 L Total Bilirubin 1.60 H AST 20 ALT 36 Alkaline Phosphatase 70 Troponin I 0.134 H Total Protein 6.5 Albumin 3.0 L Globulin 3.5 Albumin/Globulin Ratio 0.9 Urine Color Urine Clarity Urine pH Ur Specific [place] Urine Protein Urine Glucose (UA) Urine Ketones Urine Occult Blood Urine Nitrite Urine Bilirubin Urine Urobilinogen Ur Leukocyte Esterase Urine RBC Urine WBC Ur Squamous Epith Cells Urine Bacteria Urine Mucus 07/25/18 07/25/18 07/26/18 22:30 22:40 01:30 WBC RBC Hgb Hct MCV MCH MCHC RDW RDW Differential Plt Count MPV Immature Gran % (Auto) Neut % (Auto) Lymph % (Auto) [place] % (Auto) Eos % (Auto) Baso % (Auto) Absolute Neuts (auto) Absolute Lymphs (auto) Total Counted Differential Comment Platelet Estimate RBC Morphology PT INR APTT Sodium Potassium Chloride Carbon Dioxide Anion Gap BUN Creatinine Estim Creat Clear Calc Est GFR (MDRD) Af Amer Est GFR (MDRD) Non-Af BUN/Creatinine Ratio Glucose Lactic Acid 1.0 Calcium Total Bilirubin AST ALT Alkaline Phosphatase Troponin I 0.157 H Total Protein Albumin Globulin Albumin/Globulin Ratio Urine Color Yellow Urine Clarity Clear Urine pH 8.0 Ur Specific [place] 1.015 Urine Protein 100 H Urine Glucose (UA) Normal Urine Ketones 50 H Urine Occult Blood 25 H Urine Nitrite Negative Urine Bilirubin 1 H Urine Urobilinogen 1 H Ur Leukocyte Esterase 25 H Urine RBC 0 SEEN Urine WBC 5-10 SEEN Ur Squamous Epith Cells 0 SEEN Urine Bacteria RARE Urine Mucus 1+ 07/26/18 04:24 WBC RBC Hgb Hct MCV MCH MCHC RDW RDW Differential Plt Count MPV Immature Gran % (Auto) Neut % (Auto) Lymph % (Auto) [place] % (Auto) Eos % (Auto) Baso % (Auto) Absolute Neuts (auto) Absolute Lymphs (auto) Total Counted Differential Comment Platelet Estimate RBC Morphology PT INR APTT Sodium 139 Potassium 3.6 Chloride 106 Carbon Dioxide 24.0 Anion Gap 9 BUN 14 Creatinine 1.43 H Estim Creat Clear Calc 69.23 Est GFR (MDRD) Af Amer 65 Est GFR (MDRD) Non-Af 54 L BUN/Creatinine Ratio 9.8 L Glucose 143 H Lactic Acid Calcium 7.7 L Total Bilirubin AST ALT Alkaline Phosphatase Troponin I 0.092 H Total Protein Albumin Globulin Albumin/Globulin Ratio Urine Color Urine Clarity Urine pH Ur Specific [place] Urine Protein Urine Glucose (UA) Urine Ketones Urine Occult Blood Urine Nitrite Urine Bilirubin Urine Urobilinogen Ur Leukocyte Esterase Urine RBC Urine WBC Ur Squamous Epith Cells Urine Bacteria Urine Mucus Assessment/Plan Patient seen and examined independently. Data reviewed. I agree with the above note by the physician project construction assistant manager. 1. Sepsis POA 2/2 UTI resolved 2. UTI E. coli ESBL received Ertapenam x1 before discharge 2/6 Currently on meropenam as therapeutic interchange. 3. Elevated troponin trending down likely Type 2/demand ischemia Clean [facility] in October Dr. Steen, recommends echocardiogram Hold off on cardiology consult at this time. 4. Thrombocytopenia doubt HIT, suspect DIC with sepsis. Check D-Dimer, INR and FSP. If D-Dimer elevated, it would help determine if patient has DIC. No CTA would be necessary (no clinical concern for PE). 5. DVT proph: SCDs. Code Visit Inpatient E&M: 37707 Subs Hosp L3
[2018-07-26 16:46] LABS: International Normalized Ratio 1.1; Prothrombin Time (Protime)PT. 13.9 SECONDS (11.7-14.9)
[2018-07-26 16:58] LABS: D-Dimer Quantitative (DVT/PE) 2.39 FEU/ug/m (0.27-0.49)
[2018-07-26] MEDS: Gabapentin 300 MG Capsule PO (21:43)
[2018-07-27] VITALS (14 sets, daily range): BP systolic 122–151; BP diastolic 59–75; PULSE 61–89; RESP 14–18; TEMP 36.6–39.6; O2SAT 94–98
[2018-07-27] MEDS: 0.9% Normal Saline 1,000 ML 100 ML IV ×2 (01:58→11:45)
[2018-07-27] MEDS: Acetaminophen 500 MG Tablet 1000 MG PO ×3 (02:24→19:00)
[2018-07-27 07:10] LABS: Anion Gap 11 (5-15); BUN 15 mg/dL (7-18); BUN/Creat Ratio 11.8 RATIO (10-20); Calcium,Total 7.9 mg/dL (8.5-10.1); Chloride 107 mmol/L (98-107); Creatinine, Serum 1.27 mg/dL (0.70-1.30); EST Glomerular Filtration Rate 61 mL/min (>60); Est Glom Filt Rate - Afr Amer 74 mL/min (>60); Estimated Creatinine Clearance 77.95 ml/min; Glucose 122 mg/dL (74-106); Potassium 3.7 mmol/L (3.5-5.1); Sodium Level 139 mmol/L (136-145)
[2018-07-27 07:13] LABS: Absolute Neutrophil Count 3.5 X10^3/uL (2.0-7.7); Basophil# 0.01 X10^3/uL; Basophil% 0.2 % (0-1); Eosinophil# 0.01 X10^3/uL; Eosinophils% 0.2 % (0-5); Hematocrit 42.4 % (40-54); Hemoglobin 14.2 g/dl (13.0-16.5); Lymphocyte % 8.9 % (19-41); Mean Corp Hgb Conc 33.5 g/gl (32-36); Mean Corpuscular Hgb 28.4 pg (27.0-32.0); Mean Corpuscular Volume 84.8 fL (80-94); Mean Platelet Vol. 12.1 fl (6.2-12.0); Monocyte# 0.51 X10^3/uL; Monocyte% 11.4 % (0-10); Neutrophil # 3.51 X10^3/uL (2.7-7.7); Neutrophil % 78.6 % (47-70); Platelet Count 78 K/mm3 (150-450); RBC Distribution Width CV 14.6 % (11.6-14.6); RBC Distribution Width SD 44.4 fl (35.1-43.9); White Blood Count 4.5 K/mm3 (4.4-11.0)
[2018-07-27 07:16] LABS: Differential Indicated SCAN CRITERIA MET; POSITIVE COUNT NO; POSITIVE DIFFERENTIAL YES; POSITIVE MORPHOLOGY NO
[2018-07-27] MEDS: amLODIPine 10 MG Tablet PO (09:16)
[2018-07-27] MEDS: Pantoprazole Sodium 40 MG Tablet PO (09:16)
[2018-07-27] MEDS: Allopurinol 100 MG Tablet PO (09:16)
[2018-07-27] MEDS: Multivitamins,Ther W-Minerals Tablet 1 TABLET PO (09:16)
[2018-07-27] MEDS: Aspirin E.C. 81 MG Tablet PO (09:17)
[2018-07-27] MEDS: DULoxetine Hcl 30 MG Capsule PO (09:17)
[2018-07-27] MEDS: Metoprolol Tartrate 25 MG Tablet PO ×2 (09:17→22:08)
--- NOTE | 2018-07-27 11:53 | PCM.PN.HOSP ---
Patient Problems: Active and Suspected Problems (Last Reviewed 07/26/18 @ 00:55 by Dustin Worley MD) Fever (Acute) Fever and chills (Acute) Acute pyelonephritis (Acute) Subjective: Feels better. No new complaints. Vitals/I&O's: Vital Signs Temp Pulse Resp BP Pulse Ox 37.8 C H 71 16 130/62 H 98 07/27/18 11:48 07/27/18 11:04 07/27/18 09:13 07/27/18 09:17 07/27/18 09:18 Oxygen Delivery Method Room Air Weight: 152.4 kg Body Mass Index (BMI) 39.8 Intake and Output for Last 24 Hours 07/25/18 07/26/18 07/27/18 23:59 23:59 23:59 Intake Total 4232 / 4232 2254 / 2254 Balance 4232 / 4232 2254 / 2254 General: Alert, No apparent distress HEENT: Atraumatic, Normocephalic Oral: Moist Mucosa, No Gingival or Mucosal Lesions/ Ulcerations Neck: No Nodes, Thyroid Normal Size and Texture Lungs: Clear to auscultation, Normal air movement, No rhonchi, No wheeze Cardiovascular: Regular rate, Regular Rhythm, Normal S1, Normal S2, No murmurs Abdomen: Bowel Sounds Present, Soft, Non Tender, Non-Distended, No Hepato-splenomegaly Extremities: No edema, No Calf Tenderness Psych/Mental Status: Normal Affect, Appropriate Microbiology Past 72 Hours 07/25/18 22:35 Mucosa - Nose Influenza Types A,B Direct FA (DARRELL) - Final Laboratory Results 07/26/18 16:21: PT 13.9, INR 1.1, D-Dimer Quant (PE/DVT) 2.39 H* 07/27/18 06:40: Sodium 139, Potassium 3.7, Chloride 107, Carbon Dioxide 21.0, Anion Gap 11, BUN 15, Creatinine 1.27, Estim Creat Clear Calc 77.95, Est GFR (MDRD) Af Amer 74, Est GFR (MDRD) Non-Af 61, BUN/Creatinine Ratio 11.8, Glucose 122 H, Calcium 7.9 L 07/27/18 06:40: WBC 4.5, RBC 5.00, Hgb 14.2, Hct 42.4, MCV 84.8, MCH 28.4, MCHC 33.5, RDW 14.6, RDW Differential 44.4 H, Plt Count 78 L, MPV 12.1 H, Immature Gran % (Auto) 0.700, Neut % (Auto) 78.6 H, Lymph % (Auto) 8.9 L, [place] % (Auto) 11.4 H, Eos % (Auto) 0.2, Baso % (Auto) 0.2, Absolute Neuts (auto) 3.5, Absolute Lymphs (auto) 0.40 L, Total Counted Not Reportable Current Medications Acetaminophen (Tylenol) 1,000 mg PO Q8H PRN PRN PRN Reason: fever > 100.4 or pain Last Admin: 07/27/18 10:41 Dose: 1,000 mg [facility] Last Admin: 07/27/18 09:16 Dose: 100 mg Amlodipine Besylate (Norvasc) 10 mg PO DAILY [facility] Last Admin: 07/27/18 09:16 Dose: 10 mg Aspirin (Ecotrin) 81 mg PO DAILY@0800 [facility] Last Admin: 07/27/18 09:17 Dose: 81 mg Duloxetine HCl (Cymbalta) 30 mg PO DAILY [facility] Last Admin: 07/27/18 09:17 Dose: 30 mg Gabapentin (Neurontin) 300 mg PO QHS [facility] Last Admin: 07/26/18 21:43 Dose: 300 mg Hydralazine HCl (Apresoline Iv) 10 mg IV Q4H PRN PRN PRN Reason: SBP > 160 Meropenem 1 gm/ Sodium (Chloride) 120 mls @ 33 mls/hr IV Q8 [facility] Last Admin: 07/27/18 05:39 Dose: 33 mls/hr Sodium Chloride () 1,000 mls @ 100 mls/hr IV .Q10H [facility] Last Admin: 07/27/18 11:45 Dose: 100 mls/hr Labetalol HCl (Trandate) 10 mg IV Q4H PRN PRN PRN Reason: SBP > 160 Magnesium Hydroxide (Milk Of Magnesia) 30 ml PO DAILY PRN PRN Reason: Constipation Metoprolol Tartrate (Lopressor (Beta Zo)) 25 mg PO BID [facility] Last Admin: 07/27/18 09:17 Dose: 25 mg Multivitamins/Minerals (Multivitamin With Minerals) [facility] Last Admin: 07/27/18 09:16 Dose: 1 tablet Nitroglycerin (Nitrostat) 0.4 mg SUBLINGUAL Q5M PRN PRN Reason: Chest Pain Nutritional Formula (Lactose Free) (Ensure Enlive) 120 ml PO 4X/DAY [facility] Last Admin: 07/27/18 09:15 Dose: 120 ml Ondansetron HCl (Zofran) 4 mg IV Q8H PRN PRN PRN Reason: NAUSEA Pantoprazole Sodium (Protonix) 40 mg PO DAILY [facility] Last Admin: 07/27/18 09:16 Dose: 40 mg Polyethylene Glycol (Miralax) 17 gm PO DAILY [facility] Last Admin: 07/27/18 09:16 Dose: Not Given Potassium Chloride (K-Dur) [facility] Last Admin: 07/27/18 09:16 Dose: 40 meq Sodium Chloride () 5 - 15 ml IV UD PRN PRN Reason: SALINE FLUSH Medical Necessity - Tobacco Use Smoking Status: Former smoker Assessment/Plan All Active Problems (Last Reviewed 07/26/18 @ 00:55 by Dustin Worley MD) UTI (urinary tract infection) (Acute) UTI (urinary tract infection) (Acute) Fever (Acute) Fever and chills (Acute) Acute pyelonephritis (Acute) Confusion (Resolved) 1. Sepsis POA 2/2 UTI resolved TMax 40 at 1823 on 07/26. Consult ID to see if anything else needs to be done. Blood cultures on 07/23 and 07/25 negative. 2. UTI E. coli ESBL received Ertapenam x1 before discharge 07/25 Currently on meropenam as therapeutic interchange. 3. Elevated troponin trending down likely Type 2/demand ischemia Clean LHC in October DW Dr. Steen, recommends echocardiogram Hold off on cardiology consult at this time. Patient has no recollection of LHC in October (I confirmed in documentation with the patient that he was admitted on 10/28- for chest pain and had a LHC done) 4. DIC 2/2 sepsis and UTI (thrombocytopenia and elevated D-Dimer) 5. DVT proph: SCDs. Disposition: eventually home. Await ID recommendations. Code Visit Inpatient E&M: 10207 Subs Hosp L2
--- NOTE | 2018-07-27 11:59 | PN_ITS ---
Patient Problems: Active and Suspected Problems (Last Reviewed 07/26/18 @ 00:55 by Dustin Worley MD) Fever (Acute) Fever and chills (Acute) Acute pyelonephritis (Acute) Subjective: Feels better. No new complaints. Vitals/I&O's: Vital Signs Temp Pulse Resp BP Pulse Ox 37.8 C H 71 16 130/62 H 98 07/27/18 11:48 07/27/18 11:04 07/27/18 09:13 07/27/18 09:17 07/27/18 09:18 Oxygen Delivery Method Room Air Weight: 152.4 kg Body Mass Index (BMI) 39.8 Intake and Output for Last 24 Hours 07/25/18 07/26/18 07/27/18 23:59 23:59 23:59 Intake Total 4232 / 4232 2254 / 2254 Balance 4232 / 4232 2254 / 2254 General: Alert, No apparent distress HEENT: Atraumatic, Normocephalic Oral: Moist Mucosa, No Gingival or Mucosal Lesions/ Ulcerations Neck: No Nodes, Thyroid Normal Size and Texture Lungs: Clear to auscultation, Normal air movement, No rhonchi, No wheeze Cardiovascular: Regular rate, Regular Rhythm, Normal S1, Normal S2, No murmurs Abdomen: Bowel Sounds Present, Soft, Non Tender, Non-Distended, No Hepato- splenomegaly Extremities: No edema, No Calf Tenderness Psych/Mental Status: Normal Affect, Appropriate Microbiology Past 72 Hours 07/25/18 22:35 Mucosa - Nose Influenza Types A,B Direct FA (DARRELL) - Final Laboratory Results 07/26/18 16:21: PT 13.9, INR 1.1, D-Dimer Quant (PE/DVT) 2.39 H* 07/27/18 06:40: Sodium 139, Potassium 3.7, Chloride 107, Carbon Dioxide 21.0, Anion Gap 11, BUN 15, Creatinine 1.27, Estim Creat Clear Calc 77.95, Est GFR (MDRD) Af Amer 74, Est GFR (MDRD) Non-Af 61, BUN/Creatinine Ratio 11.8, Glucose 122 H, Calcium 7.9 L 07/27/18 06:40: WBC 4.5, RBC 5.00, Hgb 14.2, Hct 42.4, MCV 84.8, MCH 28.4, MCHC 33.5, RDW 14.6, RDW Differential 44.4 H, Plt Count 78 L, MPV 12.1 H, Immature Gran % (Auto) 0.700, Neut % (Auto) 78.6 H, Lymph % (Auto) 8.9 L, [place] % (Auto) 11.4 H, Eos % (Auto) 0.2, Baso % (Auto) 0.2, Absolute Neuts (auto) 3.5, Absolute Lymphs (auto) 0.40 L, Total Counted Not Reportable Current Medications Acetaminophen (Tylenol) 1,000 mg PO Q8H PRN PRN PRN Reason: fever > 100.4 or pain Last Admin: 07/27/18 10:41 Dose: 1,000 mg [facility] Last Admin: 07/27/18 09:16 Dose: 100 mg Amlodipine Besylate (Norvasc) 10 mg PO DAILY [facility] Last Admin: 07/27/18 09:16 Dose: 10 mg Aspirin (Ecotrin) 81 mg PO DAILY@0800 [facility] Last Admin: 07/27/18 09:17 Dose: 81 mg Duloxetine HCl (Cymbalta) 30 mg PO DAILY [facility] Last Admin: 07/27/18 09:17 Dose: 30 mg Gabapentin (Neurontin) 300 mg PO QHS [facility] Last Admin: 07/26/18 21:43 Dose: 300 mg Hydralazine HCl (Apresoline Iv) 10 mg IV Q4H PRN PRN PRN Reason: SBP > 160 Meropenem 1 gm/ Sodium (Chloride) 120 mls @ 33 mls/hr IV Q8 [facility] Last Admin: 07/27/18 05:39 Dose: 33 mls/hr Sodium Chloride () 1,000 mls @ 100 mls/hr IV .Q10H [facility] Last Admin: 07/27/18 11:45 Dose: 100 mls/hr Labetalol HCl (Trandate) 10 mg IV Q4H PRN PRN PRN Reason: SBP > 160 Magnesium Hydroxide (Milk Of Magnesia) 30 ml PO DAILY PRN PRN Reason: Constipation Metoprolol Tartrate (Lopressor (Beta Zo)) 25 mg PO BID [facility] Last Admin: 07/27/18 09:17 Dose: 25 mg Multivitamins/Minerals ([facility]ivitamin With Minerals) [facility] Last Admin: 07/27/18 09:16 Dose: 1 tablet Nitroglycerin (Nitrostat) 0.4 mg SUBLINGUAL Q5M PRN PRN Reason: Chest Pain Nutritional Formula (Lactose Free) (Ensure Enlive) 120 ml PO 4X/DAY [facility] Last Admin: 07/27/18 09:15 Dose: 120 ml Ondansetron HCl (Zofran) 4 mg IV Q8H PRN PRN PRN Reason: NAUSEA Pantoprazole Sodium (Protonix) 40 mg PO DAILY [facility] Last Admin: 07/27/18 09:16 Dose: 40 mg Polyethylene Glycol (Miralax) 17 gm PO DAILY [facility] Last Admin: 07/27/18 09:16 Dose: Not Given Potassium Chloride (K-Dur) [facility] Last Admin: 07/27/18 09:16 Dose: 40 meq Sodium Chloride () 5 - 15 ml IV UD PRN PRN Reason: SALINE FLUSH Medical Necessity - Tobacco Use Smoking Status: Former smoker Assessment/Plan All Active Problems (Last Reviewed 07/26/18 @ 00:55 by Dustin Worley MD) UTI (urinary tract infection) (Acute) UTI (urinary tract infection) (Acute) Fever (Acute) Fever and chills (Acute) Acute pyelonephritis (Acute) Confusion (Resolved) 1. Sepsis POA 2/2 UTI resolved TMax 40 at 1823 on 07/26. Consult ID to see if anything else needs to be done. Blood cultures on 07/23 and 07/25 negative. 2. UTI E. coli ESBL received Ertapenam x1 before discharge 07/25 Currently on meropenam as therapeutic interchange. 3. Elevated troponin trending down likely Type 2/demand ischemia Clean LHC in October DW Dr. Steen, recommends echocardiogram Hold off on cardiology consult at this time. Patient has no recollection of LHC in October (I confirmed in documentation with the patient that he was admitted on 10/28- for chest pain and had a LHC done) 4. DIC 2/2 sepsis and UTI (thrombocytopenia and elevated D-Dimer) 5. DVT proph: SCDs. Disposition: eventually home. Await ID recommendations. Code Visit Inpatient E&M: 37014 Subs Hosp L2
--- NOTE | 2018-07-27 14:42 | CON.PCM_ITS ---
Reason for Consult Date of Consultation: 07/27/18 Reason for Consultation: E. coli infection history of penile prosthesis History of Present Illness: The patient is a 62 year old male known to me in the office who sees me outpatient for enlarged prostate he also has a history of penile prosthesis implanted over 10 years ago in [place]. Presents to the hospital as a readmission he was admitted for E. coli resistant infection and was then discharged home at that admission he had a CAT scan done that demonstrated a large prostate penile prosthesis in place no signs of infection. He was readmitted for fevers and chills probably has continued infection with a resistant E. coli. Infectious diseases been consulted question about whether the prosthesis is infected on exam the patient prosthesis is intact and nontender no signs of redness pus purulence or any tenderness I do not think the prosthesis is infected does not look infected, on CAT scan reviewed on prior admission it also did not look infected. He does have a history of a large prostate is on medical therapy I think we should maximize his medical therapy with Flomax and also finasteride. I will make sure these are written for. Past Medical History Past Medical History (Chronic Problems): Chronic Problems (Last Reviewed 07/26/18 @ 00:55 by Dustin Worley MD) Prostate enlargement (Chronic) Dyspnea on exertion (Chronic) Claudication (Chronic) Presence of stent in coronary artery (Chronic ~08/2012) PTCA/stent to LAD 08/29 Essential hypertension (Chronic) Atherosclerotic heart disease of [place] coronary artery without angina pectoris (Chronic) Abnormal myocardial perfusion study (Chronic) H/O percutaneous transluminal coronary angioplasty (Chronic) HLD (hyperlipidemia) (Chronic) Abnormal stress test (Chronic) DEENA (obstructive sleep apnea) (Chronic) CAD (coronary atherosclerotic disease) (Chronic) PTCA/stent to LAD 08/29 Testosterone deficiency (Chronic) Obesity (Chronic) Pulmonary embolism (Chronic) Medical History: Medical History (Last Reviewed 07/27/18 @ 14:40 by Gamal Ramos MD) Essential hypertension (Chronic) I10 Atherosclerotic heart disease of [place] coronary artery without angina pectoris (Chronic) I25.10 Abnormal myocardial perfusion study (Chronic) R94.39 H/O percutaneous transluminal coronary angioplasty (Chronic) Z98.61 HLD (hyperlipidemia) (Chronic) E78.5 Abnormal stress test (Chronic) R94.39 DEENA (obstructive sleep apnea) (Chronic) G47.33 TIA (transient ischemic attack) G45.9 BPH (benign prostatic hyperplasia) N40.0 Fibromyalgia M79.7 GERD (gastroesophageal reflux disease) K21.9 HTN (hypertension) (Inactive) I10 Allergies Sulfa (Sulfonamide Antibiotics) Allergy (Verified 07/25/18 21:48) Unknown ibuprofen [From Motrin] Adverse Reaction (Verified 07/25/18 21:48) Itching Home Medications: Ambulatory Orders Medication Instructions Recorded Esomeprazole Mag Trihydrate 40 mg PO DAILY 10/03/13 [Nexium] Potassium Chloride [Klor-Con 10] 40 meq PO DAILY 10/03/13 Multivitamins,Ther W-Minerals 1 tab PO DAILY 12/10/13 [Multivitamin With Minerals] Nitroglycerin [Nitrostat] 0.4 mg SUBLINGUAL Q5M PRN 12/10/13 Aspirin E.C. [Ecotrin] 81 mg PO DAILY@0800 08/17/16 Meloxicam [Mobic] 7.5 mg PO DAILY 08/17/16 amlodipine 10 mg tablet 10 mg PO QDAY 06/09/17 Duloxetine Hcl [Cymbalta] 30 mg PO DAILY 10/30/17 Gabapentin [Neurontin] 300 mg PO QHS 10/30/17 losartan 25 mg tablet 25 mg PO DAILY #90 tab 05/30/18 metoprolol tartrate 25 mg tablet 25 mg PO BID #180 tab 05/30/18 Allopurinol 100 mg PO DAILY 07/23/18 Acetaminophen [Tylenol Tablet] 1,000 mg PO Q8H PRN tablet 07/25/18 Ertapenem Sod [Invanz] 1 gm IV Q24 vial 07/25/18 Surgical History: Surgical History (Last Reviewed 07/27/18 @ 14:41 by Gamal Ramos MD) Presence of stent in coronary artery (Chronic) Onset Date: ~08/2012 Z95.5 PTCA/stent to LAD 08/29 History of PTCA Onset Date: ~08/2012 Z98.61 PTCA/stent to LAD History of left heart catheterization (LHC) Z98.890 01/2007, 12/2012, 11/2013 History of repair of rotator cuff Z98.890 History of tonsillectomy and adenoidectomy Z98.890 Surgical History: angioplasty Psychiatric History: No pertinent psych hx Lives: Spouse/ Significant Other Smoking Status: Former smoker Alcohol: Rare - *Family History Maternal Family History: Family History (Last Reviewed 07/27/18 @ 14:41 by Gamal Ramos MD) Mother CAD (coronary artery disease) Hypertension Hx of CABG Father Hypertension Myocardial infarction Grandfather Myocardial infarction Grandmother Cancer Grandfather CAD (coronary artery disease) History Items: Heart Disease Paternal Family History: Family History (Last Reviewed 07/27/18 @ 14:41 by Gamal Ramos MD) Mother CAD (coronary artery disease) Hypertension Hx of CABG Father Hypertension Myocardial infarction Grandfather Myocardial infarction Grandmother Cancer Grandfather CAD (coronary artery disease) History Items: Heart Disease Review of Systems Constitutional: Reports: Chills, Fever HEENT: Denies: Head Aches, Sinus Congestion, Sinus Drainage Cardiovascular: Denies: Chest Pain, Palpitations Respiratory: Denies: Cough, Shortness of breath at rest, Sputum production Gastrointestinal: Denies: Abdominal Pain, Nausea, Vomiting Genitourinary: Reports: Frequency, Hematuria, Retention, Urgency. Denies: Dysuria Musculoskeletal: Denies: Joint Pain, Joint Tenderness Skin: Denies: Rash, Wounds Neurological: Denies: Numbness, Tingling, Focal weakness Psychiatric: Denies: Anxiety, Depression, Homicidal Ideations, Suicidal Ideations Hematologic/ Lymphatic: Denies: Easy Bruising, Easy Bleeding Physical Exam - Physical Exam Vital Signs Temp 98.1 F 07/27/18 14:16 Pulse 65 07/27/18 14:16 Resp 14 07/27/18 14:16 BP 141/69 H 07/27/18 14:16 Pulse Ox 98 07/27/18 14:16 Intake & Output 07/25/18 07/26/18 07/27/18 23:59 23:59 23:59 Intake Total 4232 / 4232 2254 / 2254 Balance 4232 / 4232 2254 / 2254 Weight: 153.4 kg 152.4 kg Intake: Oral 2540 / 2540 1050 / 1050 IV fluid/meds 1692 / 1692 1204 / 1204 Other: Number of Voids 3 4 General: Alert, Oriented x3 HEENT: Atraumatic Oral: Moist Mucosa Neck: Supple Lungs: Clear to auscultation, Normal air movement Cardiovascular: Regular rate, Regular Rhythm Abdomen: Soft, Obese - He is Rectal: Exam deferred - Exam of the penis is normal penile prosthesis is not infected. Microbiology Past 72 Hours 07/25/18 22:35 Influenza Types A,B Direct FA (DARRELL) - Final Mucosa - Nose Laboratory Tests Past 24 Hrs 07/26/18 07/27/18 07/27/18 16:21 06:40 06:40 WBC 4.5 RBC 5.00 Hgb 14.2 Hct 42.4 MCV 84.8 MCH 28.4 MCHC 33.5 RDW 14.6 RDW Differential 44.4 H Plt Count 78 L MPV 12.1 H Immature Gran % (Auto) 0.700 Neut % (Auto) 78.6 H Lymph % (Auto) 8.9 L [place] % (Auto) 11.4 H Eos % (Auto) 0.2 Baso % (Auto) 0.2 Absolute Neuts (auto) 3.5 Absolute Lymphs (auto) 0.40 L Total Counted Not Reportable PT 13.9 INR 1.1 D-Dimer Quant (PE/DVT) 2.39 H* Sodium 139 Potassium 3.7 Chloride 107 Carbon Dioxide 21.0 Anion Gap 11 BUN 15 Creatinine 1.27 Estim Creat Clear Calc 77.95 Est GFR (MDRD) Af Amer 74 Est GFR (MDRD) Non-Af 61 BUN/Creatinine Ratio 11.8 Glucose 122 H Calcium 7.9 L Assessment/Plan All Active Problems (Last Reviewed 07/26/18 @ 00:55 by Dustin Worley MD) UTI (urinary tract infection) (Acute) UTI (urinary tract infection) (Acute) Fever (Acute) Fever and chills (Acute) Acute pyelonephritis (Acute) Confusion (Resolved) 62-year-old male with BPH and obstruction presents the hospital with urinary tract infection, examination of the penile prosthesis is normal, recommend we maximize his medical therapy and start him on Flomax and finasteride treat the resistant E. coli per IDs recommendations he will need to follow-up in my office after discharge from the hospital for follow-up.
--- NOTE | 2018-07-27 15:16 | CASEMGMT ---
This ERASMO CAT spoke with Gabriella at the infusion center and she states that she faxed pt's Ertapenem 1 gm daily order to [facility] nursing bar supervisor so that if he is discharged tomorrow, they will have the order to complete his infusion on monday. ID was consulted today, so unsure if antibx order will change at this time. This ERASMO CAT spoke extensively with [facility] charge, pt and pt's daughter regarding same, voice understanding. If order is changed to three times daily, pt will need HHC set up up as well as iv supplies, etc. so most likely will need to stay until monday. Pt has still been intermittently febrile and urology was consulted as well. Pt/daughter are aware that if pt does get discharged tomorrow with continuation of ertapenem 1gm iv daily(as originally planned) then he will report to [facility] ED registration on monday am for infusion, voice understanding. Pt/daughter voice no further questions/concerns/needs at this time. SStchristiano ZIMMERMAN CM
--- NOTE | 2018-07-27 15:48 | CON.PCM_ITS ---
Problem List (1) Acute pyelonephritis Status: Acute Reason for Consult: esbl infection Consulted by: Dr. Blake History of Present Illness: The patient is a 62 year old M with BPH and prostatitis in the past who initially presented 2/4 with about 5 days of dysuria, increased straining, not feeling well. Nocturia was stable. Developed fever, chills. Came to ED, admitted on ceftriaxone. Ucx showed esbl ecoli, given dose of ertapenem prior to discharge 07/25. Fever worsened, came back to hospital, started on meropenem, still with fever over 104 last night, but feeling better this AM. Full ROS performed and neg except as noted above. Some nausea. No flank pain. Some diarrhea recently. No blood in stool. - Medical History Past Medical History (Chronic Problems): Chronic Problems (Last Reviewed 07/27/18 @ 14:40 by Gamal Ramos MD) Prostate enlargement (Chronic) Dyspnea on exertion (Chronic) Claudication (Chronic) Presence of stent in coronary artery (Chronic ~08/2012) PTCA/stent to LAD 08/29 Essential hypertension (Chronic) Atherosclerotic heart disease of [place] coronary artery without angina pectoris (Chronic) Abnormal myocardial perfusion study (Chronic) H/O percutaneous transluminal coronary angioplasty (Chronic) HLD (hyperlipidemia) (Chronic) Abnormal stress test (Chronic) DEENA (obstructive sleep apnea) (Chronic) CAD (coronary atherosclerotic disease) (Chronic) PTCA/stent to LAD 08/29 Testosterone deficiency (Chronic) Obesity (Chronic) Pulmonary embolism (Chronic) Allergies/Adverse Reactions: Allergies Sulfa (Sulfonamide Antibiotics) Allergy (Verified 07/25/18 21:48) Unknown ibuprofen [From Motrin] Adverse Reaction (Verified 07/25/18 21:48) Itching Home Medications: Ambulatory Orders Medication Instructions Recorded Esomeprazole Mag Trihydrate 40 mg PO DAILY 10/03/13 [Nexium] Potassium Chloride [Klor-Con 10] 40 meq PO DAILY 10/03/13 Multivitamins,Ther W-Minerals 1 tab PO DAILY 12/10/13 [Multivitamin With Minerals] Nitroglycerin [Nitrostat] 0.4 mg SUBLINGUAL Q5M PRN 12/10/13 Aspirin E.C. [Ecotrin] 81 mg PO DAILY@0800 08/17/16 Meloxicam [Mobic] 7.5 mg PO DAILY 08/17/16 amlodipine 10 mg tablet 10 mg PO QDAY 06/09/17 Duloxetine Hcl [Cymbalta] 30 mg PO DAILY 10/30/17 Gabapentin [Neurontin] 300 mg PO QHS 10/30/17 losartan 25 mg tablet 25 mg PO DAILY #90 tab 05/30/18 metoprolol tartrate 25 mg tablet 25 mg PO BID #180 tab 05/30/18 Allopurinol 100 mg PO DAILY 07/23/18 Acetaminophen [Tylenol Tablet] 1,000 mg PO Q8H PRN tablet 07/25/18 Ertapenem Sod [Invanz] 1 gm IV Q24 vial 07/25/18 Finasteride 5 mg PO DAILY #30 tablet 07/27/18 Tamsulosin HCl [Flomax] 0.4 mg PO DAILY #30 capsule 07/27/18 - Social History SMOKING STATUS:: Former smoker Vital Signs Temp Pulse Resp BP Pulse Ox 98.1 F 65 14 141/69 H 98 07/27/18 14:16 07/27/18 14:16 07/27/18 14:16 07/27/18 14:16 07/27/18 14:16 Oxygen Delivery Method Room Air Weight: 152.4 kg Body Mass Index (BMI) 39.8 Microbiology Past 72 Hours 07/25/18 22:35 Influenza Types A,B Direct FA (DARRELL) - Final Mucosa - Nose Laboratory Tests Past 24 Hrs 07/26/18 07/27/18 07/27/18 16:21 06:40 06:40 WBC 4.5 RBC 5.00 Hgb 14.2 Hct 42.4 MCV 84.8 MCH 28.4 MCHC 33.5 RDW 14.6 RDW Differential 44.4 H Plt Count 78 L MPV 12.1 H Immature Gran % (Auto) 0.700 Neut % (Auto) 78.6 H Lymph % (Auto) 8.9 L [place] % (Auto) 11.4 H Eos % (Auto) 0.2 Baso % (Auto) 0.2 Absolute Neuts (auto) 3.5 Absolute Lymphs (auto) 0.40 L Total Counted Not Reportable PT 13.9 INR 1.1 D-Dimer Quant (PE/DVT) 2.39 H* Sodium 139 Potassium 3.7 Chloride 107 Carbon Dioxide 21.0 Anion Gap 11 BUN 15 Creatinine 1.27 Estim Creat Clear Calc 77.95 Est GFR (MDRD) Af Amer 74 Est GFR (MDRD) Non-Af 61 BUN/Creatinine Ratio 11.8 Glucose 122 H Calcium 7.9 L - Other Studies Radiology: [] reviewed Other Studies: [] Route of nutrition/ use of supplements: [] Nutritional Intake: [] IV Site: [] Bey Catheter: [] - Physical Exam General: Alert, Oriented x3, Cooperative, No apparent distress HEENT: Atraumatic, PERRLA, EOMI Neck: Supple, No Nodes Lungs: Clear to auscultation, Normal air movement Cardiovascular: Regular rate, Regular Rhythm, No murmurs Abdomen: Soft, Non Tender, Non-Distended, - - on LITZY, prostate is enlarged, somewhat painful and boggy Extremities: No edema Skin: No rashes IV Site: Peripheral, without redness Musculoskeletal: No Tenderness to Palpation of Joints or Extremities Neurological: Cranial nerves II-XII grossly intact - Assessment/Plan Antibiotics: [] Assessment/Plan: [] Active and Suspected Problems (Last Reviewed 07/27/18 @ 14:40 by Gamal aRmos MD) Fever (Acute) Fever and chills (Acute) Acute pyelonephritis (Acute) Severe sepsis (elevated lactate, fever, tachycardia) due to ESBL ecoli infection with suspected prostatitis. Improving now on meropenem. Some dysuria and straining prior to presentation. LITZY shows enlarged prostate, mild tenderness. He reports much more pain with prior episodes of prostatitis, but he has been on abx since 07/[address] also with ? proctitis. Recommend urology eval given his history. He also has penile implant in place. Continue meropenem for now. Bcx from 07/23 and 07/25 remain negative. Tentative plan for discharge will be for IV or IM ertapenem with stop date 08/04 and then 2 week course of po fosfomycin 3gm q3days to cover any potential residual prostate involvement. Will follow, thank you, d/w primary team.
[2018-07-27] MEDS: Tamsulosin HCl 0.4 MG Capsule PO (17:17)
[2018-07-27] MEDS: NYSTATIN 500,000 UNIT/5 ML UDC 500000 UNIT PO ×2 (17:18→22:08)
[2018-07-27] MEDS: Finasteride 5 MG Tablet PO (17:18)
[2018-07-27] MEDS: Gabapentin 300 MG Capsule PO (22:08)
[2018-07-28 04:02] VITALS: BP 132/69; PULSE 66; RESP 14; TEMP 37.3; O2SAT 99
[2018-07-28] MEDS: Acetaminophen 500 MG Tablet 1000 MG PO (04:04)
[2018-07-28] MEDS: NYSTATIN 500,000 UNIT/5 ML UDC 500000 UNIT PO ×3 (06:12→16:45)
[2018-07-28 07:03] VITALS: O2SAT 95
[2018-07-28 07:30] LABS: Absolute Lymphocyte Count 0.67 X10^3/ul (0.83-4.51); Absolute Neutrophil Count 2.9 X10^3/uL (2.0-7.7); Eosinophil# 0.03 X10^3/uL; Eosinophils% 0.7 % (0-5); Hematocrit 42.3 % (40-54); Hemoglobin 13.8 g/dl (13.0-16.5); Lymphocyte # 0.67 X10^3/ul (4.0); Lymphocyte % 15.7 % (19-41); Mean Corp Hgb Conc 32.6 g/gl (32-36); Mean Corpuscular Hgb 27.5 pg (27.0-32.0); Mean Corpuscular Volume 84.3 fL (80-94); Mean Platelet Vol. 11.4 fl (6.2-12.0); Monocyte# 0.65 X10^3/uL; Monocyte% 15.2 % (0-10); Neutrophil # 2.91 X10^3/uL (2.7-7.7); Neutrophil % 67.9 % (47-70); Platelet Count 64 K/mm3 (150-450); RBC Distribution Width CV 14.6 % (11.6-14.6); RBC Distribution Width SD 45.2 fl (35.1-43.9); Red Blood Count 5.02 M/mm3 (4.6-6.2); White Blood Count 4.3 K/mm3 (4.4-11.0)
[2018-07-28 07:31] LABS: POSITIVE COUNT NO; POSITIVE DIFFERENTIAL NO; POSITIVE MORPHOLOGY NO
[2018-07-28 07:46] LABS: Anion Gap 10 (5-15); BUN 17 mg/dL (7-18); BUN/Creat Ratio 13.3 RATIO (10-20); Chloride 105 mmol/L (98-107); Creatinine, Serum 1.28 mg/dL (0.70-1.30); EST Glomerular Filtration Rate 61 mL/min (>60); Est Glom Filt Rate - Afr Amer 74 mL/min (>60); Estimated Creatinine Clearance 77.34 ml/min; Glucose 112 mg/dL (74-106); Potassium 3.8 mmol/L (3.5-5.1); Sodium Level 142 mmol/L (136-145)
[2018-07-28 08:02] VITALS: BP 146/97; PULSE 60; RESP 16; TEMP 36.9; O2SAT 100
[2018-07-28] MEDS: Aspirin E.C. 81 MG Tablet PO (08:57)
[2018-07-28] MEDS: Allopurinol 100 MG Tablet PO (08:57)
[2018-07-28] MEDS: Multivitamins,Ther W-Minerals Tablet 1 TABLET PO (08:57)
[2018-07-28] MEDS: DULoxetine Hcl 30 MG Capsule PO (08:57)
[2018-07-28 08:58] VITALS: PULSE 60
[2018-07-28] MEDS: amLODIPine 10 MG Tablet PO (08:58)
[2018-07-28] MEDS: Finasteride 5 MG Tablet PO (08:58)
[2018-07-28] MEDS: Pantoprazole Sodium 40 MG Tablet PO (08:58)
[2018-07-28] MEDS: Metoprolol Tartrate 25 MG Tablet PO (08:58)
--- NOTE | 2018-07-28 09:24 | PCM.PN.HOSP ---
Patient Problems: Active and Suspected Problems (Last Reviewed 07/27/18 @ 14:40 by Gamal Ramos MD) Fever (Acute) Fever and chills (Acute) Acute pyelonephritis (Acute) Vitals/I&O's: Vital Signs Temp Pulse Resp BP Pulse Ox 98.5 F 60 16 146/97 H 100 07/28/18 08:02 07/28/18 08:58 07/28/18 08:02 07/28/18 08:02 07/28/18 08:02 Oxygen Delivery Method Room Air Weight: 152.4 kg Body Mass Index (BMI) 39.8 Intake and Output for Last 24 Hours 07/26/18 07/27/18 07/28/18 23:59 23:59 23:59 Intake Total 4232 / 4232 3199 / 3199 832 / 832 Balance 4232 / 4232 3199 / 3199 832 / 832 Microbiology Past 72 Hours 07/25/18 22:35 Mucosa - Nose Influenza Types A,B Direct FA (DARRELL) - Final Laboratory Results 07/28/18 06:57: WBC 4.3 L, RBC 5.02, Hgb 13.8, Hct 42.3, MCV 84.3, MCH 27.5, MCHC 32.6, RDW 14.6, RDW Differential 45.2 H, Plt Count 64 L, MPV 11.4, Immature Gran % (Auto) 0.500, Neut % (Auto) 67.9, Lymph % (Auto) 15.7 L, [place] % (Auto) 15.2 H, Eos % (Auto) 0.7, Baso % (Auto) 0.0, Absolute Neuts (auto) 2.9, Absolute Lymphs (auto) 0.67 L, Total Counted Not Reportable 07/28/18 06:57: Sodium 142, Potassium 3.8, Chloride 105, Carbon Dioxide 27.0, Anion Gap 10, BUN 17, Creatinine 1.28, Estim Creat Clear Calc 77.34, Est GFR (MDRD) Af Amer 74, Est GFR (MDRD) Non-Af 61, BUN/Creatinine Ratio 13.3, Glucose 112 H, Calcium 8.0 L Current Medications Acetaminophen (Tylenol) 1,000 mg PO Q8H PRN PRN PRN Reason: fever > 100.4 or pain Last Admin: 07/28/18 04:04 Dose: 1,000 mg Allopurinol (Zyloprim) 100 mg [facility] Last Admin: 07/28/18 08:57 Dose: 100 mg Amlodipine Besylate (Norvasc) 10 mg PO DAILY [facility] Last Admin: 07/28/18 08:58 Dose: 10 mg Aspirin (Ecotrin) 81 mg PO DAILY@0800 [facility] Last Admin: 07/28/18 08:57 Dose: 81 mg Duloxetine HCl (Cymbalta) 30 mg PO DAILY [facility] Last Admin: 07/28/18 08:57 Dose: 30 mg Finasteride (Proscar) 5 mg PO DAILY [facility] Last Admin: 07/28/18 08:58 Dose: 5 mg Gabapentin (Neurontin) 300 mg PO QHS [facility] Last Admin: 07/27/18 22:08 Dose: 300 mg Hydralazine HCl (Apresoline Iv) 10 mg IV Q4H PRN PRN PRN Reason: SBP > 160 Meropenem 1 gm/ Sodium (Chloride) 120 mls @ 33 mls/hr IV Q8 [facility] Last Admin: 07/28/18 06:12 Dose: 33 mls/hr Sodium Chloride () 250 mls @ 15 mls/hr IV .[id number] PRN PRN Reason: SALINE FLUSH Labetalol HCl (Trandate) 10 mg IV Q4H PRN PRN PRN Reason: SBP > 160 Magnesium Hydroxide (Milk Of Magnesia) 30 ml PO DAILY PRN PRN Reason: Constipation Metoprolol Tartrate (Lopressor (Beta Zo)) 25 mg PO BID [facility] Last Admin: 07/28/18 08:58 Dose: 25 mg Multivitamins/Minerals (Multivitamin With Minerals) 1 tablet [facility] Last Admin: 07/28/18 08:57 Dose: 1 tablet Nitroglycerin (Nitrostat) 0.4 mg SUBLINGUAL Q5M PRN PRN Reason: Chest Pain Nutritional Formula (Lactose Free) (Ensure Enlive) 120 ml PO 4X/DAY [facility] Last Admin: 07/28/18 08:58 Dose: 120 ml Nystatin (Nystatin) 500,000 unit PO Q6 [facility] Last Admin: 07/28/18 06:12 Dose: 500,000 unit Ondansetron HCl (Zofran) 4 mg IV Q8H PRN PRN PRN Reason: NAUSEA Pantoprazole Sodium (Protonix) 40 mg PO DAILY [facility] Last Admin: 07/28/18 08:58 Dose: 40 mg Polyethylene Glycol (Miralax) 17 gm PO DAILY [facility] Last Admin: 07/28/18 08:58 Dose: Not Given Potassium Chloride (K-Dur) 40 meq PO DAILYCM [facility] Last Admin: 07/28/18 08:57 Dose: 40 meq Sodium Chloride () 5 - 15 ml IV UD PRN PRN Reason: SALINE FLUSH Tamsulosin HCl (Flomax) 0.4 mg PO DAILY@1730 [facility] Last Admin: 07/27/18 17:17 Dose: 0.4 mg Medical Necessity - Tobacco Use Smoking Status: Former smoker Assessment/Plan All Active Problems (Last Reviewed 07/27/18 @ 14:40 by Gamal Ramos MD) UTI (urinary tract infection) (Acute) UTI (urinary tract infection) (Acute) Fever (Acute) Fever and chills (Acute) Acute pyelonephritis (Acute) Confusion (Resolved)
[2018-07-28 09:57] LABS: AST(SGOT) 65 U/L (15-37); Alanine Aminotransfer ALT/SGPT 85 U/L (16-61); Albumin, Serum 2.6 g/dL (3.2-5.0); Alkaline Phosphatase 75 U/L (45-117); Bilirubin, Direct 0.29 mg/dL (0.00-0.30); Globulin 3.4 g/dL (2.2-4.2)
--- NOTE | 2018-07-28 10:43 | DCINST_ITS ---
- Discharge Diagnoses Current Active Problems: Current Active and Chronic Problems (Last Reviewed 07/27/18 @ 14:40 by Gamal Ramos MD) Fever (Acute) Fever and chills (Acute) Acute pyelonephritis (Acute) Reason(s) for Visit for Discharge Instructions: Dysuria You will use the following diet at home:: Cardiac Your food should be the consistency of: Regular Your liquids should be the consistency of: Regular/Thin Discharge Activity: Return to Normal Activity Call your doctor if you observe: Fever of 101 or Higher, Dizziness, - - Abdominal pain Additional Instructions: You will be discharged with IV antibiotics to cover the ESBL E. Coli bacteria in your urine. You will receive the antibiotics daily at the infusion center. Last day of antibiotics will be 08/04/18. You will continue with fosfomycin antibiotics every 3 days for 2 weeks. Follow-up with your primary care doctor and infectious disease within 2 weeks Allergies/Adverse Reactions: Allergies Sulfa (Sulfonamide Antibiotics) Allergy (Verified 07/25/18 21:48) Unknown ibuprofen [From Motrin] Adverse Reaction (Verified 07/25/18 21:48) Itching Medications to take at Discharge Esomeprazole Mag Trihydrate [Nexium] 40 mg PO DAILY 10/03/13 Potassium Chloride [Klor-Con 10] 40 meq PO DAILY 10/03/13 Multivitamins,Ther W-Minerals [Multivitamin With Minerals] 1 tab PO DAILY 12/10/13 Nitroglycerin [Nitrostat] 0.4 mg SUBLINGUAL Q5M PRN 12/10/13 Aspirin E.C. [Ecotrin] 81 mg PO DAILY@0800 08/17/16 amlodipine 10 mg tablet 10 mg PO QDAY 06/09/17 Duloxetine Hcl [Cymbalta] 30 mg PO DAILY 10/30/17 Gabapentin [Neurontin] 300 mg PO QHS 10/30/17 losartan 25 mg tablet 25 mg PO DAILY #90 tab 05/30/18 metoprolol tartrate 25 mg tablet 25 mg PO BID #180 tab 05/30/18 Allopurinol 100 mg PO DAILY 07/23/18 Acetaminophen [Tylenol Tablet] 1,000 mg PO Q8H PRN tablet 07/25/18 Finasteride 5 mg PO DAILY #30 tablet 07/27/18 Tamsulosin HCl [Flomax] 0.4 mg PO DAILY #30 capsule 07/27/18 Fosfomycin Tromethamine [Monurol] 3 gm PO UD #5 packet 07/28/18 Nystatin 500,000 unit PO Q6 7 Days #1 bottle 07/28/18 The following prescriptions were given: RX: Ertapenem Sod [Invanz] 1 gm IV Q24 7 Days #7 vial RX: Finasteride 5 mg PO DAILY #30 tablet RX: Fosfomycin Tromethamine [Monurol] 3 gm PO UD #5 packet RX: Nystatin 500,000 unit PO Q6 7 Days #1 bottle Tamsulosin HCl [Flomax] 0.4 mg PO DAILY #30 capsule Primary Care Physician: Jagjit Myers MD [Primary Care Provider] - Please follow up with your Primary Care Physician in: within 1-2 weeks Test Results: Test results from this visit will be discussed in further detail at your follow- up appointment, if applicable. Please Follow Up With: William Pickens MD When: within 2 weeks Proposed Discharge Date: 07/28/18
--- NOTE | 2018-07-28 10:45 | DS.PCM_ITS ---
Discharge Date and Diagnosis - Problem List Patient Problems: Active and Suspected Problems (Last Reviewed 07/27/18 @ 14:40 by Gamal Ramos MD) Fever (Acute) Fever and chills (Acute) Acute pyelonephritis (Acute) Date of Admission: 07/25/18 Date of Discharge: 07/28/18 - Primary Discharge Diagnosis Active and Suspected Problems (Last Reviewed 07/27/18 @ 14:40 by Gamal Ramos MD) Severe sepsis ESBL E. Coli UTI Non-SD troponin elevation DIC Suspected prostatitis - Secondary Discharge Diagnosis Chronic Problems (Last Reviewed 07/27/18 @ 14:40 by Gamal Ramos MD) Prostate enlargement (Chronic) Dyspnea on exertion (Chronic) Claudication (Chronic) Presence of stent in coronary artery (Chronic ~08/2012) PTCA/stent to LAD 08/29 Essential hypertension (Chronic) Atherosclerotic heart disease of [place] coronary artery without angina pectoris (Chronic) Abnormal myocardial perfusion study (Chronic) H/O percutaneous transluminal coronary angioplasty (Chronic) HLD (hyperlipidemia) (Chronic) Abnormal stress test (Chronic) DEENA (obstructive sleep apnea) (Chronic) CAD (coronary atherosclerotic disease) (Chronic) PTCA/stent to LAD 08/29 Testosterone deficiency (Chronic) Obesity (Chronic) Pulmonary embolism (Chronic) Hospital Course and Treatment Imaging Results: Clinical Impression(s) from Imaging Studies Chest X-Ray 07/25/18 23:20 IMPRESSION: No radiographic evidence of acute cardiopulmonary disease. at 0021 Reported and signed by: Benji Lara MD Electronically Signed: Benji Lara, at 0:20 EST Tel , Service support , Infectious disease Operations: None Procedures: None Summary of Care Provided: The patient is a 62 year old M with past medical history of hypertension, CAD status post stent, DEENA, BPH admitted on 07/24/18 with UTI and treated with the Rocephin. Blood culture showed ESBL. Patient asked to be discharged because the was having surgery. Patient however continued to have fever and chills as well as back pain and abdominal pain and had a temperature at home of 103.3 and he was sent to the hospital. In the ED his temperature was 101.4, his tro ponins were initially elevated at 0.134 and total bilirubin is 1.60. Admitted to the [facility] floor managed as possible acute pyelonephritis. Infectious disease was consulted. Continued on IV meropenem. Surgery was consulted, recommended antibiotics for UTI. Patient has history of penile prosthesis and felt that there was no signs of infection. He was started on Flomax and Finasteride. Patient was discharged to continue on IV ertapenem for 1 week. Stop date was . He would continue subsequently on fosfomycin 3 g every 3 days for 2 weeks. Patient will have the IV antibiotics in the infusion center. Infusion center were reportedly okay with giving him antibiotics via his peripheral line. No need for PICC line. Patient Problems: Active and Suspected Problems (Last Reviewed 07/27/18 @ 14:40 by Gamal Ramos MD) Fever (Acute) Fever and chills (Acute) Acute pyelonephritis (Acute) - Physical Exam General: Alert, Oriented x3, Cooperative, No apparent distress HEENT: Atraumatic, PERRLA, EOMI, Normocephalic Oral: Moist Mucosa Neck: Supple, No JVD, Negative Carotid Bruits Lungs: Clear to auscultation, Normal air movement Cardiovascular: Regular rate, Regular Rhythm, Normal S1, Normal S2, No murmurs Abdomen: Bowel Sounds Present, Soft, Non Tender, Non-Distended, No Hepato- splenomegaly Extremities: No edema Skin: No rashes, No breakdown Musculoskeletal: No Tenderness to Palpation of Joints or Extremities Lymphatic: No Cervical, Supraclavicular, or Inguinal Adenopathy Neurological: Cranial nerves II-XII grossly intact, Neuro grossly intact Psych/Mental Status: Normal Affect, Appropriate Vital Signs Temp Pulse Resp BP Pulse Ox 98.5 F 60 16 146/97 H 100 07/28/18 08:02 07/28/18 08:58 07/28/18 08:02 07/28/18 08:02 07/28/18 08:02 Oxygen Delivery Method Room Air Weight: 152.4 kg Body Mass Index (BMI) 39.8 Intake and Output for Last 24 Hours 07/26/18 07/27/18 07/28/18 23:59 23:59 23:59 Intake Total 4232 / 4232 3199 / 3199 832 / 832 Balance 423 / 4232 3199 / 3199 832 / 832 Microbiology Past 72 Hours 07/25/18 22:35 Influenza Types A,B Direct FA (DARRELL) - Final Mucosa - Nose Laboratory Tests Past 24 Hrs 07/28/18 07/28/18 07/28/18 06:57 06:57 06:57 WBC 4.3 L RBC 5.02 Hgb 13.8 Hct 42.3 MCV 84.3 MCH 27.5 MCHC 32.6 RDW 14.6 RDW Differential 45.2 H Plt Count 64 L MPV 11.4 Immature Gran % (Auto) 0.500 Neut % (Auto) 67.9 Lymph % (Auto) 15.7 L [place] % (Auto) 15.2 H Eos % (Auto) 0.7 Baso % (Auto) 0.0 Absolute Neuts (auto) 2.9 Absolute Lymphs (auto) 0.67 L Total Counted Not Reportable Sodium 142 Potassium 3.8 Chloride 105 Carbon Dioxide 27.0 Anion Gap 10 BUN 17 Creatinine 1.28 Estim Creat Clear Calc 77.34 Est GFR (MDRD) Af Amer 74 Est GFR (MDRD) Non-Af 61 BUN/Creatinine Ratio 13.3 Glucose 112 H Calcium 8.0 L Total Bilirubin 0.90 Direct Bilirubin 0.29 AST 65 H ALT 85 H Alkaline Phosphatase 75 Total Protein 6.0 L Albumin 2.6 L Globulin 3.4 Discharge Diet: Low fat/ Low Cholesterol, 2000 mg Sodium Diet Discharge Activity: Return to Normal Activity Call your doctor if you observe: Fever of 101 or Higher, Dizziness, - - Abdominal pain Home Medications: Medications to take at Discharge Esomeprazole Mag Trihydrate [Nexium] 40 mg PO DAILY 10/03/13 Potassium Chloride [Klor-Con 10] 40 meq PO DAILY 10/03/13 Multivitamins,Ther W-Minerals [Multivitamin With Minerals] 1 tab PO DAILY 12/10/13 Nitroglycerin [Nitrostat] 0.4 mg SUBLINGUAL Q5M PRN 12/10/13 Aspirin E.C. [Ecotrin] 81 mg PO DAILY@0800 08/17/16 amlodipine 10 mg tablet 10 mg PO QDAY 06/09/17 Duloxetine Hcl [Cymbalta] 30 mg PO DAILY 10/30/17 Gabapentin [Neurontin] 300 mg PO QHS 10/30/17 losartan 25 mg tablet 25 mg PO DAILY #90 tab 05/30/18 metoprolol tartrate 25 mg tablet 25 mg PO BID #180 tab 05/30/18 Allopurinol 100 mg PO DAILY 07/23/18 Acetaminophen [Tylenol Tablet] 1,000 mg PO Q8H PRN tablet 07/25/18 Finasteride 5 mg PO DAILY #30 tablet 07/27/18 Tamsulosin HCl [Flomax] 0.4 mg PO DAILY #30 capsule 07/27/18 Fosfomycin Tromethamine [Monurol] 3 gm PO UD #5 packet 07/28/18 Nystatin 500,000 unit PO Q6 7 Days #1 bottle 07/28/18 Following Prescrptions Were Given to Patient: Finasteride 5 mg PO DAILY #30 tablet Fosfomycin Tromethamine [Monurol] 3 gm PO UD #5 packet Nystatin 500,000 unit PO Q6 7 Days #1 bottle Tamsulosin HCl [Flomax] 0.4 mg PO DAILY #30 capsule Primary Care Physician: Jagjit Myers MD [Primary Care Provider] - Please follow up with your Primary Care Physician in: within 1-2 weeks Please Follow Up With: William Pickens MD When: within 2 weeks Disposition: Home Minutes spent on discharge:: 40 Patient Condition:: Stable Medical Necessity - Tobacco Use Smoking Status: Former smoker Tobacco Use: Non-smoker Meaningful Use Info Meaningful Use Diagnoses (Choose all that apply): None applicable Code Visit Inpatient E&M: 40561 Disch Hosp
[2018-07-28 11:42] VITALS: BP 139/64; PULSE 68; RESP 16; TEMP 37.3; O2SAT 100
--- NOTE | 2018-07-28 13:48 | CASEMGMT ---
SW spoke w/CM, pt is to come to ED tomorrow at 10:30am for the infusion, then Monday to the infusion center at 10:30. SW let pt's RN know, she will let pt know as though CM spoke w/pt and family yesterday, pt seemed to not know what time he was to be here. LALIT Reeves, [employer] DEVELOPER
[2018-07-28 14:20] VITALS: BP 150/85; PULSE 65; RESP 16; TEMP 37.4; O2SAT 98
[2018-07-28] MEDS: Tamsulosin HCl 0.4 MG Capsule PO (16:44)
[2018-07-28] MEDS: 0.9% NaCl Peripheral Flush Adult/Peds IV (17:19)
--- NOTE | 2018-07-30 11:33 | CASEMGMT ---
[facility] and she is updated that the stop date for Ertapenem is now 08/04/18, voices understanding and states no need for any new order at this time. Also advised her that pt has script for po antibx after done with ertapenem, she voices understanding and states will remind pt. Sixto ZIMMERMAN CM
--- NOTE | 2018-07-30 15:31 | CASEMGMT ---
ERASMO CAT Discharge Follow-up Phone Call: SANDRINE: 10 Strata: 3 Call Date: 07/30/18 Discharge Date: 07/28/18 Time of Call: 1530 Duration: 1 min Admitting Diagnosis: UTI, Sepsis RN EMORY attempted to complete follow-up phone call after recent hospitalization. No answer, voice message left with return contact information.
== END 2018-07-28 17:20 | disposition home or self-care (01) | DRG 871 ==
LOC: ED 22:23 → PCU 07-26 00:07 → MS3 07-27 18:49
PROVIDERS: Physician Assistant; Admitting Provider Hospitalist; Emergency Provider Emergency Medicine; Family Provider Family Medicine; PCP Family Medicine; Referring Provider Hospitalist; Visit Provider Internal Medicine
DX: A41.9 Sepsis, unspecified organism (principal); D65 Disseminated intravascular coagulation [defibrination syndrome]; N10 Acute pyelonephritis; N13.8 Other obstructive and reflux uropathy; R65.20 Severe sepsis without septic shock; I10 Essential (primary) hypertension; I25.10 Atherosclerotic heart disease of native coronary artery without angina pectoris; G47.33 Obstructive sleep apnea (adult) (pediatric); B96.20 Unspecified Escherichia coli [E. coli] as the cause of diseases classified elsewhere; M10.9 Gout, unspecified; K21.9 Gastro-esophageal reflux disease without esophagitis; D69.6 Thrombocytopenia, unspecified; Z96.0 Presence of urogenital implants; N40.1 Benign prostatic hyperplasia with lower urinary tract symptoms; Z87.891 Personal history of nicotine dependence; Z95.5 Presence of coronary angioplasty implant and graft; Z95.1 Presence of aortocoronary bypass graft; E78.5 Hyperlipidemia, unspecified; Z79.899 Other long term (current) drug therapy; N41.9 Inflammatory disease of prostate, unspecified; E66.9 Obesity, unspecified; Z68.39 Body mass index [BMI] 39.0-39.9, adult
CPT/HCPCS: 36415; 71045; 80048; 80053; 80076; 81001; 83605; 84484; 85025; 85379; 85610; 85730; 87040; 87804; 93005; 97802; 99285; J2185; J7030; A4216; J2405

== ENCOUNTER 2018-07-29 10:14 | Outpatient (CLI) | payer OTHER, SELFPAY ==
[2018-07-24 00:56] VITALS: BMI 40.0
[2018-07-26 00:32] VITALS: BMI 39.8
[2018-07-29 10:59] VITALS: BP 127/67; PULSE 60; RESP 18; TEMP 37.1; O2SAT 99
--- NOTE | 2018-07-29 11:00 | NURSING ---
IV that was in the Left FA - which was left when d/c from hospital on 07/28/18 was d/c d/t pain and redness just above insertion site. warm compress placed to this area. new iv started see IV doc.
[2018-07-29] MEDS: 0.9% NaCl Peripheral Flush Adult/Peds IV (11:01)
== END 2018-07-29 12:00 | disposition home or self-care (01) ==
LOC: MS3OUT 10:16 → MS3 10:17
PROVIDERS: Family Provider Family Medicine; PCP Family Medicine
DX: Z16.12 Extended spectrum beta lactamase (ESBL) resistance (principal); N39.0 Urinary tract infection, site not specified; B96.20 Unspecified Escherichia coli [E. coli] as the cause of diseases classified elsewhere
CPT/HCPCS: 96365; A4216

== ENCOUNTER → 2018-07-30 10:11 | Outpatient (CLI) | payer OTHER, SELFPAY ==
[2018-06-25 11:18] VITALS: BMI 39.7
[2018-07-26 00:32] VITALS: BMI 39.8
[2018-07-30 10:48] VITALS: BP 131/67; PULSE 55; RESP 16; TEMP 36.3; O2SAT 100; BMI 39.8
== END ==
PROVIDERS: Family Provider Family Medicine; PCP Family Medicine; Referring Provider Surgery Vascular Surgery; Visit Provider Surgery Vascular Surgery
DX: N39.0 Urinary tract infection, site not specified (principal); B96.20 Unspecified Escherichia coli [E. coli] as the cause of diseases classified elsewhere; Z16.12 Extended spectrum beta lactamase (ESBL) resistance
CPT/HCPCS: 96365; J7050; A4216

== ENCOUNTER → 2018-07-31 10:02 | Outpatient (CLI) | payer OTHER, SELFPAY ==
[2018-07-24 00:56] VITALS: BMI 40.0
[2018-07-30 10:48] VITALS: BMI 39.8
[2018-07-31 10:49] VITALS: BP 129/62; PULSE 56; RESP 16; TEMP 36.2; O2SAT 98; BMI 39.8
== END ==
PROVIDERS: Family Provider Family Medicine; PCP Family Medicine
DX: N39.0 Urinary tract infection, site not specified (principal); B96.20 Unspecified Escherichia coli [E. coli] as the cause of diseases classified elsewhere; Z16.12 Extended spectrum beta lactamase (ESBL) resistance
CPT/HCPCS: 96365; J7050; A4216

== ENCOUNTER → 2018-08-01 09:50 | Outpatient (CLI) | payer OTHER, SELFPAY ==
[2018-07-30 10:48] VITALS: BMI 39.8
[2018-07-31 10:49] VITALS: BMI 39.8
[2018-08-01 10:20] VITALS: BP 138/72; PULSE 59; RESP 18; TEMP 36.1; O2SAT 96; BMI 39.8
== END ==
PROVIDERS: Family Provider Family Medicine; PCP Family Medicine
DX: N39.0 Urinary tract infection, site not specified (principal); B96.20 Unspecified Escherichia coli [E. coli] as the cause of diseases classified elsewhere; Z16.12 Extended spectrum beta lactamase (ESBL) resistance
CPT/HCPCS: 96365; J7050; A4216

== ENCOUNTER → 2018-08-02 10:10 | Outpatient (CLI) | payer OTHER, SELFPAY ==
[2018-07-30 10:48] VITALS: BMI 39.8
[2018-08-01 10:20] VITALS: BMI 39.8
[2018-08-02 10:44] VITALS: BP 129/71; PULSE 71; RESP 16; TEMP 36.2; O2SAT 98; BMI 39.8
== END ==
PROVIDERS: Family Provider Family Medicine; PCP Family Medicine
DX: N39.0 Urinary tract infection, site not specified (principal); B96.20 Unspecified Escherichia coli [E. coli] as the cause of diseases classified elsewhere; Z16.12 Extended spectrum beta lactamase (ESBL) resistance
CPT/HCPCS: 96365; J7050; A4216

== ENCOUNTER → 2018-08-03 10:14 | Outpatient (CLI) | payer OTHER, SELFPAY ==
[2018-07-30 10:48] VITALS: BMI 39.8
[2018-08-02 10:44] VITALS: BMI 39.8
[2018-08-03 10:26] VITALS: BP 140/72; PULSE 64; RESP 18; TEMP 36.3; O2SAT 99; BMI 39.8
== END ==
PROVIDERS: Family Provider Family Medicine; PCP Family Medicine
DX: Z16.12 Extended spectrum beta lactamase (ESBL) resistance (principal); N39.0 Urinary tract infection, site not specified; B96.20 Unspecified Escherichia coli [E. coli] as the cause of diseases classified elsewhere
CPT/HCPCS: 96365; J7050; A4216

== ENCOUNTER 2018-08-04 08:02 | Outpatient (CLI) | payer OTHER, SELFPAY ==
[2018-07-30 10:48] VITALS: BMI 39.8
[2018-08-03 10:26] VITALS: BMI 39.8
[2018-08-04 08:20] VITALS: BP 155/86; PULSE 60; RESP 16; TEMP 36.6; O2SAT 94
[2018-08-04] MEDS: 0.9% NaCl Peripheral Flush Adult/Peds IV (09:22)
[2018-08-04] MEDS: 0.9% NaCl IVPB Med Flush (250 mL) 15 ML IV (09:22)
[2018-08-04 09:28] VITALS: BP 162/85; PULSE 56; RESP 18; TEMP 36.7; O2SAT 97
== END 2018-08-04 09:24 | disposition home or self-care (01) ==
LOC: MEDOUTP 08:03 → MS2 08:03
PROVIDERS: Family Provider Family Medicine; PCP Family Medicine
DX: N39.0 Urinary tract infection, site not specified (principal); B96.20 Unspecified Escherichia coli [E. coli] as the cause of diseases classified elsewhere; Z16.12 Extended spectrum beta lactamase (ESBL) resistance
CPT/HCPCS: 96365; J7050; A4216

== ENCOUNTER → 2018-08-10 08:25 | Outpatient (CLI) | payer OTHER, SELFPAY ==
[2018-08-03 10:26] VITALS: BMI 39.8
[2018-08-10 08:59] VITALS: BP 155/82; PULSE 82; RESP 14; TEMP 37; O2SAT 95; BMI 38.4
[2018-08-10 10:20] VITALS: BP 179/73; PULSE 70; RESP 16; TEMP 36.8; O2SAT 97; BMI 38.4
== END ==
LOC: RAD 10:04 → MEDOUTP 10:05
PROVIDERS: Family Provider Family Medicine; PCP Family Medicine; Referring Provider Internal Medicine Infectious Disease; Visit Provider Internal Medicine Infectious Disease
DX: A49.8 Other bacterial infections of unspecified site (principal); N41.9 Inflammatory disease of prostate, unspecified; Z87.891 Personal history of nicotine dependence
CPT/HCPCS: 36569; J7050

== ENCOUNTER → 2018-08-15 11:10 | Outpatient (CLI) | payer OTHER, SELFPAY ==
[2018-08-10 10:20] VITALS: BMI 38.4
[2018-08-15 12:25] LABS: Hematocrit 46.2 % (40-54); Hemoglobin 15.2 g/dl (13.0-16.5); Mean Corp Hgb Conc 32.9 g/gl (32-36); Mean Corpuscular Hgb 27.7 pg (27.0-32.0); Mean Corpuscular Volume 84.3 fL (80-94); Mean Platelet Vol. 12.1 fl (6.2-12.0); Platelet Count 164 K/mm3 (150-450); RBC Distribution Width CV 13.5 % (11.6-14.6); RBC Distribution Width SD 41.8 fl (35.1-43.9); Red Blood Count 5.48 M/mm3 (4.6-6.2); White Blood Count 5.6 K/mm3 (4.4-11.0)
[2018-08-15 12:28] LABS: Scan Indicated on CBC? Y/N NO
[2018-08-15 13:19] LABS: AST(SGOT) 35 U/L (15-37); Alanine Aminotransfer ALT/SGPT 68 U/L (16-61); Albumin, Serum 3.8 g/dL (3.2-5.0); Alkaline Phosphatase 90 U/L (45-117); Anion Gap 5 (5-15); BUN 22 mg/dL (7-18); BUN/Creat Ratio 19.5 RATIO (10-20); Bilirubin, Direct 0.19 mg/dL (0.00-0.30); Calcium,Total 8.5 mg/dL (8.5-10.1); Chloride 104 mmol/L (98-107); Creatinine, Serum 1.13 mg/dL (0.70-1.30); EST Glomerular Filtration Rate 70 mL/min (>60); Est Glom Filt Rate - Afr Amer 85 mL/min (>60); Globulin 3.3 g/dL (2.2-4.2); Glucose 118 mg/dL (74-106); Protein, Total 7.1 g/dL (6.4-8.2); Sodium Level 137 mmol/L (136-145)
== END ==
PROVIDERS: Family Provider Family Medicine; PCP Family Medicine; Referring Provider Internal Medicine Infectious Disease; Visit Provider Internal Medicine Infectious Disease
DX: Z16.12 Extended spectrum beta lactamase (ESBL) resistance (principal); B96.20 Unspecified Escherichia coli [E. coli] as the cause of diseases classified elsewhere
CPT/HCPCS: 80048; 80076; 85027

== ENCOUNTER → 2018-08-22 10:35 | Outpatient (CLI) | payer OTHER, SELFPAY ==
[2018-08-10 10:20] VITALS: BMI 38.4
[2018-08-22 10:50] LABS: Hematocrit 44.5 % (40-54); Hemoglobin 15.2 g/dl (13.0-16.5); Mean Corp Hgb Conc 34.2 g/gl (32-36); Mean Corpuscular Hgb 28.1 pg (27.0-32.0); Mean Corpuscular Volume 82.3 fL (80-94); Mean Platelet Vol. 11.7 fl (6.2-12.0); Platelet Count 96 K/mm3 (150-450); RBC Distribution Width CV 13.6 % (11.6-14.6); RBC Distribution Width SD 40.2 fl (35.1-43.9); Red Blood Count 5.41 M/mm3 (4.6-6.2); White Blood Count 4.7 K/mm3 (4.4-11.0)
[2018-08-22 10:51] LABS: Scan Indicated on CBC? Y/N NO
[2018-08-22 11:12] LABS: AST(SGOT) 34 U/L (15-37); Alanine Aminotransfer ALT/SGPT 63 U/L (16-61); Albumin, Serum 3.9 g/dL (3.2-5.0); Alkaline Phosphatase 91 U/L (45-117); Anion Gap 8 (5-15); BUN 20 mg/dL (7-18); BUN/Creat Ratio 21.3 RATIO (10-20); Bilirubin, Direct 0.17 mg/dL (0.00-0.30); Calcium,Total 8.2 mg/dL (8.5-10.1); Chloride 107 mmol/L (98-107); Creatinine, Serum 0.94 mg/dL (0.70-1.30); EST Glomerular Filtration Rate 87 mL/min (>60); Est Glom Filt Rate - Afr Amer 105 mL/min (>60); Globulin 3.3 g/dL (2.2-4.2); Glucose 127 mg/dL (74-106); Potassium 3.8 mmol/L (3.5-5.1); Protein, Total 7.2 g/dL (6.4-8.2); Sodium Level 141 mmol/L (136-145)
== END ==
PROVIDERS: Family Provider Family Medicine; PCP Family Medicine; Referring Provider Internal Medicine Infectious Disease; Visit Provider Internal Medicine Infectious Disease
DX: B96.20 Unspecified Escherichia coli [E. coli] as the cause of diseases classified elsewhere (principal); Z16.12 Extended spectrum beta lactamase (ESBL) resistance
CPT/HCPCS: 80048; 80076; 85027

== ENCOUNTER → 2018-08-29 12:48 | Outpatient (CLI) | payer OTHER, SELFPAY ==
[2018-08-10 10:20] VITALS: BMI 38.4
[2018-08-29 14:53] LABS: Hematocrit 43.3 % (40-54); Hemoglobin 14.5 g/dl (13.0-16.5); Mean Corp Hgb Conc 33.5 g/gl (32-36); Mean Corpuscular Hgb 27.7 pg (27.0-32.0); Mean Corpuscular Volume 82.8 fL (80-94); Mean Platelet Vol. 11.7 fl (6.2-12.0); Platelet Count 96 K/mm3 (150-450); RBC Distribution Width CV 13.8 % (11.6-14.6); RBC Distribution Width SD 41.5 fl (35.1-43.9); Red Blood Count 5.23 M/mm3 (4.6-6.2); White Blood Count 5.2 K/mm3 (4.4-11.0)
[2018-08-29 14:56] LABS: Scan Indicated on CBC? Y/N NO
[2018-08-29 15:28] LABS: AST(SGOT) 36 U/L (15-37); Alanine Aminotransfer ALT/SGPT 67 U/L (16-61); Albumin, Serum 4.1 g/dL (3.2-5.0); Alkaline Phosphatase 105 U/L (45-117); Anion Gap 9 (5-15); BUN 19 mg/dL (7-18); Bilirubin, Direct 0.18 mg/dL (0.00-0.30); Calcium,Total 8.2 mg/dL (8.5-10.1); Chloride 105 mmol/L (98-107); EST Glomerular Filtration Rate 81 mL/min (>60); Est Glom Filt Rate - Afr Amer 98 mL/min (>60); Globulin 3.1 g/dL (2.2-4.2); Glucose 101 mg/dL (74-106); Potassium 3.8 mmol/L (3.5-5.1); Protein, Total 7.2 g/dL (6.4-8.2); Sodium Level 139 mmol/L (136-145)
== END ==
PROVIDERS: Family Provider Family Medicine; PCP Family Medicine; Referring Provider Internal Medicine Infectious Disease; Visit Provider Internal Medicine Infectious Disease
DX: Z16.12 Extended spectrum beta lactamase (ESBL) resistance (principal); B96.20 Unspecified Escherichia coli [E. coli] as the cause of diseases classified elsewhere
CPT/HCPCS: 80048; 80076; 85027

== ENCOUNTER 2018-09-10 16:07 | Emergency (ER) | payer OTHER, SELFPAY ==
[2018-08-10 10:20] VITALS: BMI 38.4
[2018-09-10] VITALS (7 sets, daily range): BP systolic 119–148; BP diastolic 51–88; PULSE 70–89; RESP 13–18; TEMP 36.3–37.4; O2SAT 95–100; BMI 39.1
--- NOTE | 2018-09-10 16:37 | RAD_ITS ---
STUDY: X-RAY CHEST REASON FOR EXAM: Male, 62 years old. Cough, chest pain TECHNIQUE: Portable chest COMPARISON: 07/25/2018 FINDINGS: There is mild right lower lobe pulmonary opacities. There is no demonstrated pleural abnormality. There is stable mild cardiomegaly. Normal mediastinum and whit. Normal visualized pulmonary arteries. Normal visualized aortic arch and descending thoracic aorta. Normal visualized thoracic spine. Normal visualized ribs, clavicles, and shoulders. There is no demonstrated abnormality of the visualized soft tissue structures of the upper abdomen. RAD/Chest 1 View (Portable) IMPRESSION: Mild right lower lobe pulmonary opacities and infiltrates and/or subsegmental atelectasis possible pneumonia Mild cardiomegaly Electronically Signed: William Mata, at 17:38 EDT Tel , Service support ,
--- NOTE | 2018-09-10 16:37 | EKG12_ITS ---
Test Reason : RIGHT BACK PAIN Blood Pressure : / mmHG Vent. Rate : 080 BPM Atrial Rate : 080 BPM P-R Int : 262 ms QRS Dur : 088 ms QT Int : 362 ms P-R-T Axes : 043 -36 035 degrees QTc Int : 417 ms Sinus rhythm with 1st degree A-V block Left axis deviation Abnormal ECG Confirmed by GABRIELA CONTI, KIRAN ([id number]), publications editor LATISHA HECK ([id number]) on 09/12/2018 1:30:31 PM Referred By: ENDER Confirmed By:KIRAN OCHOA MD
--- NOTE | 2018-09-10 16:38 | ED.VISSUMM ---
- ER Visit Summary Date of Service: 09/10/18 Chief Complaint: Right lateral rib cage pain with fever History of Present Illness: The patient is a 62 M history of recent sepsis due to urinary tract infection. He was hospitalized in mid was recently removed and currently is off antibiotics. He has a known history of coronary disease of the LAD with one cardiac stent. And a prior PE. Patient denies being short of breath. The right side lateral rib cage pain is pleuritic in nature and hurts more with deep breathing. He denies any hemoptysis. He is not short of breath. He denies any leg pain or swelling. Physical Examination: 62-year-old male no acute distress. Vital signs are currently stable temperature is 99.3. Pulse ox 90% on room air no signs of hypoxia. H EENT exam unremarkable. Neck nontender. Lungs clear to auscultation bilaterally. He definitely has pleuritic pain on the right. It is not reproducible on the chest wall. There is no ecchymosis or bruising. No subcu air. Heart regular rhythm rate about 90 no murmur. Abdomen soft and nontender. Normal bowel sounds no peritoneal signs. Equal. Extremities moves all 4. Equal symmetrical radial pulses. 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 Dorsi plantar flexion intact. Calves are nontender without edema or cords. Neurologically is awake alert with no focal motor deficits. Back is nontender Test Results: CBC normal white count 9. Hemoglobin 13. Chemistries normal gap of 5. UA normal. Troponin normal. Chest x-ray shows no acute abnormality. EKG sinus rhythm rate 80 with no [place] or ischemia. CTA of the chest shows right lower lobe pulmonary emboli. Cannot rule out pulmonary infarct. Right lower lobe pleural effusion cannot rule out infiltrate. This was read by the radiologist and reviewed by me. Emergency Department Course and Treatment: Patient was pleuritic right-sided rib cage pain it is not reproducible to palpation. Will undergo a workup including imaging. Treatment Plan: Discussed with patient. My plan was admission and started on anticoagulation. He has been on Xarelto before for prior PE. Discussed with the patient treatment options he prefers to be discharged home on anticoagulation. I did offer him admission which she deferred. I also spoke to the hospitalist felt that the patient was stable and not hypoxic he can be discharged home. Disposition: dc Impression: Right lateral chest pain secondary to right lower lobe pulmonary emboli with pleural effusion This note was generated with [employer] dictation software. It may contain incorrect words, spelling, and punctuation that were not noted in review of the chart prior to signing ED Disposition - Plan for ED Patient: Referrals: Jagjit Myers MD [Primary Care Provider] -
--- NOTE | 2018-09-10 16:41 | ED.DCSUM_ITS ---
- ER Visit Summary Date of Service: 09/10/18 Chief Complaint: Right lateral rib cage pain with fever History of Present Illness: The patient is a 62 M history of recent sepsis due to urinary tract infection. He was hospitalized in mid was recently removed and currently is off antibiotics. He has a known history of coronary disease of the LAD with one cardiac stent. And a prior PE. Patient denies being short of breath. The right side lateral rib cage pain is pleuritic in nature and hurts more with deep breathing. He denies any hemoptysis. He is not short of breath. He denies any leg pain or swelling. Physical Examination: 62-year-old male no acute distress. Vital signs are currently stable temperature is 99.3. Pulse ox 90% on room air no signs of hypoxia. H EENT exam unremarkable. Neck nontender. Lungs clear to auscultation bilaterally. He definitely has pleuritic pain on the right. It is not reproducible on the chest wall. There is no ecchymosis or bruising. No subcu air. Heart regular rhythm rate about 90 no murmur. Abdomen soft and nontender. Normal bowel sounds no peritoneal signs. Equal. Extremities moves all 4. Equal symmetrical radial pulses. 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 Dorsi plantar flexion intact. Calves are nontender without edema or cords. Neurologically is awake alert with no focal motor deficits. Back is nontender Test Results: CBC normal white count 9. Hemoglobin 13. Chemistries normal gap of 5. UA normal. Troponin normal. Chest x-ray shows no acute abnormality. EKG sinus rhythm rate 80 with no PA or ischemia. CTA of the chest shows right lower lobe pulmonary emboli. Cannot rule out pulmonary infarct. Right lower lobe pleural effusion cannot rule out infiltrate. This was read by the radiologist and reviewed by me. Emergency Department Course and Treatment: Patient was pleuritic right-sided rib cage pain it is not reproducible to palpation. Will undergo a workup including imaging. Treatment Plan: Discussed with patient. My plan was admission and started on anticoagulation. He has been on Xarelto before for prior PE. Discussed with the patient treatment options he prefers to be discharged home on anticoagulat ion. I did offer him admission which she deferred. I also spoke to the hospitalist felt that the patient was stable and not hypoxic he can be discharged home. Disposition: dc Impression: Right lateral chest pain secondary to right lower lobe pulmonary emboli with pleural effusion This note was generated with [employer] dictation software. It may contain incorrect words, spelling, and punctuation that were not noted in review of the chart prior to signing ED Disposition - Plan for ED Patient: Referrals: Jagjit Myers MD [Primary Care Provider] -
[2018-09-10 17:10] LABS: Absolute Lymphocyte Count 1.12 X10^3/ul (0.83-4.51); Basophil# 0.01 X10^3/uL; Basophil% 0.1 % (0-1); Eosinophil# 0.05 X10^3/uL; Eosinophils% 0.5 % (0-5); Hematocrit 39.7 % (40-54); Hemoglobin 13.7 g/dl (13.0-16.5); Lymphocyte # 1.12 X10^3/ul (4.0); Lymphocyte % 12.3 % (19-41); Mean Corp Hgb Conc 34.5 g/gl (32-36); Mean Corpuscular Hgb 28.4 pg (27.0-32.0); Mean Corpuscular Volume 82.4 fL (80-94); Mean Platelet Vol. 10.8 fl (6.2-12.0); Monocyte# 0.94 X10^3/uL; Monocyte% 10.3 % (0-10); Neutrophil # 7.01 X10^3/uL (2.7-7.7); Neutrophil % 76.7 % (47-70); Platelet Count 106 K/mm3 (150-450); RBC Distribution Width CV 14.6 % (11.6-14.6); RBC Distribution Width SD 43.7 fl (35.1-43.9); Red Blood Count 4.82 M/mm3 (4.6-6.2); White Blood Count 9.1 K/mm3 (4.4-11.0)
[2018-09-10 17:18] LABS: Anion Gap 5 (5-15); BUN 16 mg/dL (7-18); BUN/Creat Ratio 14.7 RATIO (10-20); Calcium,Total 8.6 mg/dL (8.5-10.1); Chloride 105 mmol/L (98-107); Creatinine, Serum 1.09 mg/dL (0.70-1.30); EST Glomerular Filtration Rate 73 mL/min (>60); Est Glom Filt Rate - Afr Amer 89 mL/min (>60); Estimated Creatinine Clearance 90.83 ml/min; Glucose 96 mg/dL (74-106); POSITIVE COUNT NO; POSITIVE DIFFERENTIAL NO; POSITIVE MORPHOLOGY NO; Potassium 3.8 mmol/L (3.5-5.1); Sodium Level 137 mmol/L (136-145)
--- NOTE | 2018-09-10 17:26 | CT_ITS ---
STUDY: CTA CHEST REASON FOR EXAM: Male, 62 years old. ] Pleuritic chest pain, fever, sepsis RADIATION DOSAGE (If Supplied By Facility): CTDIvol = ( 13.85 ) mGy, DLP = ( 607.93 ) mGycm TECHNIQUE: The examination was performed with the intravenous administration of Isovue 370 100 IV. Post-processing of the angiographic images was performed, with multiplanar reformation and 3D reconstruction. Individualized dose optimization techniques were used for this CT. COMPARISON: None. FINDINGS: There are multiple filling defects within the pulmonary arteries involving a segmental and subsegmental branches most significant within the right lower lobe. Evaluation is somewhat limited due to the timing of the contrast opacification. There is a stent within the LAD. This calcific coronary arteries. There is a mild right lower lobe infiltrate and pleural effusion. There are stable sclerotic thoracic spine bony lesions likely bone islands.. Normal thoracic aorta and visualized great vessels. There is no demonstrated aortic dissection. Normal mediastinum. Normal hilar regions. Normal visualized trachea and bronchi. The lungs are well expanded. Normal pulmonary parenchyma. Normal pleura. Normal chest wall structures. Normal osseous structures. Normal visualized upper abdomen. There is a small pericardial effusion. CT/CTA Chest W/WO Contrast IMPRESSION: Pulmonary emboli Right lower lobe infiltrate and pleural effusion which may be secondary to a pulmonary infarct. Pneumonia cannot be excluded this should be correlated clinically The results were called to and discussed with Physician: Lalo Mckeon immediately after my review at approximately 8:02 PM 09/10/2018. N.B. : The above information has been verbally conveyed by William Mata to Lalo Mckeon MD, on 09/10/2018 20:08:05 (ET). Electronically Signed: William Mata, at 20:09 EDT Tel , Service support ,
[2018-09-10] MEDS: 0.9% Normal Saline 1,000 ML 999 ML IV (18:10)
[2018-09-10 18:17] LABS: Red Blood Cells-Urine 0 SEEN /hpf (0-5)
[2018-09-10] MEDS: Ketorolac 30 MG/ML Syringe IV (18:18)
[2018-09-10 18:20] LABS: Color, Urine Yellow (Yellow); Glucose, Dipstick Normal (Normal); Ketone-Dipstick 5 mg/dl (Negative); Leukocyte Esterase-Dipstick 25 /ul (Negative); Nitrite-Dipstick Negative (Negative); Occult Blood-Urine Negative /ul (Negative); Protein-Dipstick 15 mg/dl (Negative); Urine Bilirubin Dipstick Negative (Negative); Urine Clarity Sl. Cloudy (Clear); Urine Urobilinogen 4 mg/dl (Normal); Urine pH 6.5 (5.0 - 8.0)
[2018-09-10 18:26] LABS: D-Dimer Quantitative (DVT/PE) 1.06 FEU/ug/m (0.27-0.49)
[2018-09-10 18:57] LABS: Bacteria RARE /hpf (None Seen); Mucous, Urine 3+ /hpf (<or=2+); Squamous Epithelial Cells - UA 0-5 SEEN /hpf (0-5); White Blood Cells 0-5 SEEN /hpf (0-5)
--- NOTE | 2018-09-10 20:25 | HP.PCM_ITS ---
History of Present Illness The patient is a 62 year old M [] Past Medical History Past Medical History (Chronic Problems): Chronic Problems (Last Reviewed 07/27/18 @ 14:40 by Gamal Ramos MD) Prostate enlargement (Chronic) Dyspnea on exertion (Chronic) Claudication (Chronic) Presence of stent in coronary artery (Chronic ~08/2012) PTCA/stent to LAD 08/29 Essential hypertension (Chronic) Atherosclerotic heart disease of [place] coronary artery without angina pectoris (Chronic) Abnormal myocardial perfusion study (Chronic) H/O percutaneous transluminal coronary angioplasty (Chronic) HLD (hyperlipidemia) (Chronic) Abnormal stress test (Chronic) DEENA (obstructive sleep apnea) (Chronic) CAD (coronary atherosclerotic disease) (Chronic) PTCA/stent to LAD 08/29 Testosterone deficiency (Chronic) Obesity (Chronic) Pulmonary embolism (Chronic) Medical History: Medical History (Last Reviewed 07/27/18 @ 14:40 by Gamal Ramos MD) Essential hypertension (Chronic) I10 Atherosclerotic heart disease of [place] coronary artery without angina pectoris (Chronic) I25.10 Abnormal myocardial perfusion study (Chronic) R94.39 H/O percutaneous transluminal coronary angioplasty (Chronic) Z98.61 HLD (hyperlipidemia) (Chronic) E78.5 Abnormal stress test (Chronic) R94.39 DEENA (obstructive sleep apnea) (Chronic) G47.33 TIA (transient ischemic attack) G45.9 BPH (benign prostatic hyperplasia) N40.0 Fibromyalgia M79.7 GERD (gastroesophageal reflux disease) K21.9 HTN (hypertension) (Inactive) I10 Allergies Sulfa (Sulfonamide Antibiotics) Allergy (Verified 09/10/18 18:17) Unknown Home Medications: Ambulatory Orders Medication Instructions Recorded Esomeprazole Mag Trihydrate 40 mg PO DAILY 10/03/13 [Nexium] Potassium Chloride [Klor-Con 10] 40 meq PO DAILY 10/03/13 Multivitamins,Ther W-Minerals 1 tab PO DAILY 12/10/13 [Multivitamin With Minerals] Nitroglycerin [Nitrostat] 0.4 mg SUBLINGUAL Q5M PRN 12/10/13 Aspirin E.C. [Ecotrin] 81 mg PO DAILY@0800 08/17/16 amlodipine 10 mg tablet 10 mg PO QDAY 06/09/17 Duloxetine Hcl [Cymbalta] 30 mg PO DAILY 10/30/17 Gabapentin [Neurontin] 300 mg PO QHS 10/30/17 losartan 25 mg tablet 25 mg PO DAILY #90 tab 05/30/18 metoprolol tartrate 25 mg tablet 25 mg PO BID #180 tab 05/30/18 Allopurinol 100 mg PO DAILY 07/23/18 Acetaminophen [Tylenol Tablet] 1,000 mg PO Q8H PRN tablet 07/25/18 Finasteride 5 mg PO DAILY #30 tablet 07/27/18 Tamsulosin HCl [Flomax] 0.4 mg PO DAILY #30 capsule 07/27/18 Cholecalciferol (VIT D3) [Vitamin 1,000 unit PO DAILY 09/10/18 D] Cyanocobalamin (Vitamin B-12) 1,000 mcg PO DAILY 09/10/18 [Vitamin B-12] Surgical History: Surgical History (Last Reviewed 07/27/18 @ 14:41 by Gamal Ramos MD) Presence of stent in coronary artery (Chronic) Onset Date: ~08/2012 Z95.5 PTCA/stent to LAD 08/29 History of PTCA Onset Date: ~08/2012 Z98.61 PTCA/stent to LAD History of left heart catheterization (LHC) Z98.890 01/2007, 12/2012, 11/2013 History of repair of rotator cuff Z98.890 History of tonsillectomy and adenoidectomy Z98.890 Surgical History: angioplasty Psychiatric History: No pertinent psych hx Smoking Status: Former smoker - *Family History Maternal Family History: Family History (Last Reviewed 07/27/18 @ 14:41 by Gamal Ramos MD) Mother CAD (coronary artery disease) Hypertension Hx of CABG Father Hypertension Myocardial infarction Grandfather Myocardial infarction Grandmother Cancer Grandfather CAD (coronary artery disease) History Items: Heart Disease Paternal Family History: Family History (Last Reviewed 07/27/18 @ 14:41 by Gamal Ramos MD) Mother CAD (coronary artery disease) Hypertension Hx of CABG Father Hypertension Myocardial infarction Grandfather Myocardial infarction Grandmother Cancer Grandfather CAD (coronary artery disease) History Items: Heart Disease - Physical Exam Vital Signs Temp Pulse Resp BP Pulse Ox 97.9 F 79 16 131/69 H 95 09/10/18 20:02 09/10/18 20:02 09/10/18 20:02 09/10/18 20:02 09/10/18 20:02 Oxygen Delivery Method Room Air Weight: 149.685 kg Body Mass Index (BMI) 39.1 Laboratory Tests Past 24 Hrs 09/10/18 09/10/18 09/10/18 16:50 16:50 16:50 WBC 9.1 RBC 4.82 Hgb 13.7 Hct 39.7 L MCV 82.4 MCH 28.4 MCHC 34.5 RDW 14.6 RDW Differential 43.7 Plt Count 106 L MPV 10.8 Immature Gran % (Auto) 0.100 Neut % (Auto) 76.7 H Lymph % (Auto) 12.3 L [place] % (Auto) 10.3 H Eos % (Auto) 0.5 Baso % (Auto) 0.1 Absolute Neuts (auto) 7.0 Absolute Lymphs (auto) 1.12 Total Counted Not Reportable D-Dimer Quant (PE/DVT) 1.06 H* Sodium 137 Potassium 3.8 Chloride 105 Carbon Dioxide 27.0 Anion Gap 5 BUN 16 Creatinine 1.09 Estim Creat Clear Calc 90.83 Est GFR (MDRD) Af Amer 89 Est GFR (MDRD) Non-Af 73 BUN/Creatinine Ratio 14.7 Glucose 96 Calcium 8.6 Troponin I < 0.015 Urine Color Urine Clarity Urine pH Ur Specific [place] Urine Protein Urine Glucose (UA) Urine Ketones Urine Occult Blood Urine Nitrite Urine Bilirubin Urine Urobilinogen Ur Leukocyte Esterase Urine RBC Urine WBC Ur Squamous Epith Cells Urine Bacteria Urine Mucus 09/10/18 18:10 WBC RBC Hgb Hct MCV MCH MCHC RDW RDW Differential Plt Count MPV Immature Gran % (Auto) Neut % (Auto) Lymph % (Auto) [place] % (Auto) Eos % (Auto) Baso % (Auto) Absolute Neuts (auto) Absolute Lymphs (auto) Total Counted D-Dimer Quant (PE/DVT) Sodium Potassium Chloride Carbon Dioxide Anion Gap BUN Creatinine Estim Creat Clear Calc Est GFR (MDRD) Af Amer Est GFR (MDRD) Non-Af BUN/Creatinine Ratio Glucose Calcium Troponin I Urine Color Yellow Urine Clarity Sl. Cloudy Urine pH 6.5 Ur Specific Marion 1.010 Urine Protein 15 H Urine Glucose (UA) Normal Urine Ketones 5 H Urine Occult Blood Negative Urine Nitrite Negative Urine Bilirubin Negative Urine Urobilinogen 4 H Ur Leukocyte Esterase 25 H Urine RBC 0 SEEN Urine WBC 0-5 SEEN Ur Squamous Epith Cells 0-5 SEEN Urine Bacteria RARE Urine Mucus 3+ Assessment/Plan All Active Problems (Last Reviewed 07/27/18 @ 14:40 by Gamal Ramos MD) UTI (urinary tract infection) (Acute) UTI (urinary tract infection) (Acute) Fever (Acute) Fever and chills (Acute) Acute pyelonephritis (Acute) Confusion (Resolved)
--- NOTE | 2018-09-10 21:21 | ED.DEP ---
ED Disposition - Plan for ED Patient: Disposition: Home or Assisted Living Instructions: Pulmonary Embolism Prescriptions: Rivaroxaban [Xarelto] 20 mg PO DAILY #60 tab Rivaroxaban [Xarelto] 15 mg PO BID #41 tab Referrals: Jagjit Myers MD [Primary Care Provider] - As soon as possible Additional Instructions: For the next 3 weeks or 21 days you will take the Xarelto 1 pill twice (15 mg) a day. After these 3 weeks you will only take it once a day 20 mg a day. Return if feeling worse. Follow-up with your primary care physician. You have blood clots in your right lower lung.
[2018-09-10] MEDS: Rivaroxaban 15 MG Tablet PO (21:40)
== END 2018-09-10 21:41 | disposition home or self-care (01) ==
PROVIDERS: Emergency Provider Emergency Medicine; Family Provider Family Medicine; PCP Family Medicine
DX: I26.99 Other pulmonary embolism without acute cor pulmonale (principal); J90 Pleural effusion, not elsewhere classified; I25.10 Atherosclerotic heart disease of native coronary artery without angina pectoris; I25.2 Old myocardial infarction; J45.909 Unspecified asthma, uncomplicated; I10 Essential (primary) hypertension; Z86.73 Personal history of transient ischemic attack (TIA), and 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 residual deficits
CPT/HCPCS: 71045; 71275; 80048; 81001; 84484; 85025; 85379; 93005; 96361; 96374; 99285; J7030; Q9967; A4216

== ENCOUNTER → 2018-10-22 15:04 | Outpatient (CLI) | payer OTHER, SELFPAY ==
[2018-09-10 16:08] VITALS: BMI 39.1
[2018-10-22 16:59] LABS: PSA,Total- Diagnostic 1.68 ng/mL (0.0-4.0)
== END ==
PROVIDERS: Family Provider Family Medicine; PCP Family Medicine; Referring Provider Urology; Visit Provider Urology
DX: R97.20 Elevated prostate specific antigen [PSA] (principal)
CPT/HCPCS: 36415; 84153

== ENCOUNTER 2019-01-28 07:35 | Day surgery (SDC) | payer OTHER, SELFPAY ==
[2018-11-27 14:58] VITALS: BMI 38.7
--- NOTE | 2019-01-25 18:48 | HP.PCM_ITS ---
History and Physical Date of Admission: 01/28/19 HISTORY AND PHYSICAL ? Lazaro Chapa 1955 ? REFERRING PHYSICIAN: ??Jagjit Myers MD ? CHIEF COMPLAINT: ??Consult (Consult Umbilical hernia- change in bowel function) ? HPI: The patient is a 63 year old male referred for endoscopy. ?Lazaro notes the following GI complaints:???Lazaro?notes abdominal pain.?The pain occurs in the following locations:??diffusely?. ?Lazaro notes occasional?diarrhea. ??Lazaro notes occasional?constipation. ?Lazaro notes?a change in bowel habits. ?Lazaro denies?melena. ?Lazaro denies?bright red blood per rectum. ???Lazaro denies?hemorrhoids. ??He understands he had a Hemoccult test in October which returned as positive. ? The patient??notes the following upper complaints:???Lazaro?notes abdominal pain.?The pain occurs in the following locations:??epigastric region?. ?Lazaro notes?heartburn. ??Lazaro notes occasional?dysphagia. ?Lazaro notes?a history of ulcers/ peptic ulcer disease. ? ? Lazaro?has??undergone prior endoscopy. ?He underwent upper and lower endoscopy in July 20, 2016. ?He was noted to have gastritis with pancreatic acinar meta plasia. ?He was noted to have distal esophagitis. ?Imaging demonstrated significant erosions in the distal esophagus. ?He was also noted to have diverticulosis: An 8 mm descending colon sessile polyp. ?This returned as a tubular adenoma. ?It was recommended he have 5 year follow-up colonoscopy. ? Also notes pain in his upper midline at the area umbilicus. ?He was helping a friend move 2 weeks previously and after lifting heavy items noted pain along the upper mid abdomen area and at the umbilicus. ?He now notes a bulge in his umbilicus he does not note a true bulge in the upper midline but does note a sausage-shaped protuberance from the xiphoid to the umbilicus. ? The patient is a somewhat complex past medical history. ?He has admissions last year for unstable angina and increasing fatigue, he's been admitted for Escherichia coli urosepsis earlier this year. ?He understands he had positive troponins from demand ischemia at that time. ?He has previous admissions for recurrent pneumonias as had previous pulmonary emboli.??He has undergone previous coronary artery catheterization with stent placement.??He is maintained on Xarelto and aspirin. ? The patient is being seen by me today at the request of DrJuly?Jagjit Myers MD?for my opinion and advice regarding heme positive stools, change in bowel habits, previous esophagitis, umbilical hernia, and diastases recti.? ? ? PAST?MEDICAL?HISTORY PAST MEDICAL HISTORY Diagnosis Date ? Abdominal pain, unspecified site ? ? Adrenal nodule (HCC) ? ? unchanged after >2 years ? Anxiety state, unspecified ? ? Asthma ? ? childhood ? CAD (coronary artery disease) ? ? Chronic low back pain ? ? Diaphragmatic hernia without mention of obstruction or gangrene ? ? Diaphragmatic hernia without mention of obstruction or gangrene ? ? Diverticulosis of colon (without mention of hemorrhage) ? ? Esophageal reflux ? ? Essential hypertension, benign 03/20/2012 ? Fibromyalgia ? ? Hemorrhoids ? ? Hypogonadism male ? ? treated per urology ? Impotence of organic origin ? ? Lung nodule ? ? repeat ct in 01/02 ? Palpitations ? ? Personal history of colonic polyps 2004 ? polyps ? Pulmonary embolism (HCC) ? ? completed treatment per pulm ? Recurrent pneumonia ? ? 14 times? PAST?SURGICAL?HISTORY PAST SURGICAL HISTORY Procedure Laterality Date ? COLONOSCOP W/ OR W/O BRS SPEC ? 2004 ? Colonoscopy ? COLONOSCOP W/ OR W/O BRS SPEC ? 03/07/11 ? wnl ? COLONOSCOPY N/A 07/20/2016 ? MAC ? EGD N/A 07/20/2016 ? MAC ? EGD W/O OR W/BRUSH/WASH ? 05/24/2011 ? EGD ? HEMORRHOIDECTOMY, EXTNL; COMP ? 04/30/15 ? KNEE SURGERY HX Right 1987 ? LAP CHOLECYSTECT/CHOLANGIOGRAPHY ? 2004 ? [facility] - ?Dr. Hernandes ? PERCUTANEOUS CORONARY INTERVENTION ? 2006 ? stent to LAD ? REMOVAL ADENOIDS,PRIMARY,<12 Y/O ? ? ? Adenoidectomy ? REMOVAL OF TONSILS,<12 Y/O ? ? ? Tonsillectomy ? REPAIR ROTATOR CUFF,ACUTE ? ? ? Rotator cuff repair ? ? ? CURRENT?MEDICATIONS ? Current Outpatient Medications: rivaroxaban (XARELTO) 20 mg tablet Take 1 tablet by mouth daily with dinner. DULoxetine (CYMBALTA) 30 mg capsule Take 1 capsule by mouth once daily. pantoprazole DR (PROTONIX) 40 mg tablet Take 1 tablet by mouth once daily. tamsulosin ER (FLOMAX) 0.4 mg cap Take 2 capsules by mouth daily at bedtime. oxybutynin XL (DITROPAN XL) 5 mg 24 hr tablet Take 1 tablet by mouth once daily. amLODIPine (NORVASC) 5 mg tablet Take 1 tablet by mouth once daily. allopurinol (ZYLOPRIM) 100 mg tablet TAKE ONE TABLET BY MOUTH ONCE DAILY FOR ?GOUT aspirin, enteric coated (ASPIRIN, ENTERIC COATED) 81 mg EC tablet Take 81 mg by mouth once daily. Cholecalciferol, Vitamin D3, (VITAMIN D) 1,000 unit cap Take 1 capsule by mouth once daily. potassium chloride (K-TAB) 10 mEq tablet Take 2 tablets by mouth once daily. albuterol HFA (PROAIR HFA) 90 mcg/actuation inhaler Inhale 2 Puffs as instructed every 4 hours as needed (FOR COUGH OR WHEEZE). cyanocobalamin (VITAMIN B-12) 1,000 mcg tab Take 1,000 mcg by mouth once daily. Syringe with Needle, Disp, (BD LUER-YOHANA SYRINGE) 3 mL 23 x 1 1/2 syrg Uses 4 syringes per month with testosterone injections (Patient taking differently: Inject 1 Each intramuscularly once each week. Uses 4 syringes per month with testosterone injections) Needle, Disp, 18 G (BD NOKOR ADMIX NEEDLE) 18 x 1 1/2 ndle Uses 4 per month to draw up testosterone from vial (Patient taking differently: Inject 1 Each intramuscularly once each week. Uses 4 per month to draw up testosterone from vial) MULTIVITAMIN TAB Take one(1) tablet daily BY MOUTH. peg 3350-Electrolytes (GOLYTELY) 236-22.74-6.74 -5.86 gram suspension Take 4,000 mL by mouth one time only for 1 dose. finasteride (PROSCAR) 5 mg tablet Take 1 tablet by mouth once daily. ? No current facility-administered medications for this visit.? ? ALLERGIES:?Sulfa (Sulfonamide Antibiotics); Motrin [Ibuprofen] ? PERSONAL HISTORY:? 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 ?Employer: [employer] ?Comment: previous asbestos exposure ??Social Needs ?Financial resource strain: Not on file ?Food insecurity: ?Worry: Not on file ?Inability: Not on file ?Transportation needs: ?Medical: Not on file ?Non-medical: Not on file ??Tobacco Use ?Smoking status: Former Smoker ?Packs/day: 2.00 ?Years: 5.00 ?Pack years: 10 ?Types: Cigarettes ?Quit date: 02/08/1987 ?Years since quittin.9 ?Smokeless tobacco: Former User ?Types: Chew ?Quit date: 12/03/2017 ?Tobacco comment: patient smoked for a few months in 2006 ??Substance and Sexual Activity ?Alcohol use: Yes ?Alcohol/week: 30.0 standard drinks ?Comment: rare ?Drug use: No ?Comment: marijuana in past not since 20 y/o ?Sexual activity: Not on file ??Lifestyle ?Physical activity: ?Days per week: Not on file ?Minutes per session: Not on file ?Stress: Not on file ??Relationships ?Social connections: ?Talks on phone: Not on file ?Gets together: Not on file ?Attends advent service: Not on file ?Active member of club or organization: Not on file ?Attends meetings of clubs or organizations: Not on file ?Relationship status: Not on file ?Intimate partner violence: ?Fear of current or ex partner: Not on file ?Emotionally abused: Not on file ?Physically abused: Not on file ?Forced sexual activity: Not on file ??Other Topics ?Concerns: ?Not on file ??Social History Narrative ?Not on file ?? ? FAMILY HISTORY:? FAMILY?HISTORY FAMILY HISTORY Problem Relation Age of Onset ? Hypertension Mother ? ? Heart Mother ? ? Stroke Mother ? ? Allergies Mother ? ? Breast Cancer Mother ? ? Heart Father ? of [place] ? Allergies Father ? ? Asthma Daughter ? ? Allergies Sister ? ? Allergies Brother ? ? Allergies Daughter ? ? ? REVIEW OF SYMPTOMS: ??The review of systems data was entered by the nurse and reviewed by me ? Nursing Notes: Dustin Sharma LPN ?01/24/2019 ?3:39 PM ?Signed REVIEW OF SYSTEMS: ?General:???The patient NOTES fatigue, denies weight loss, denies weight gain, NOTES feeling hot, and denies feelings of cold. ?Eyes: ?The patient denies glaucoma, denies eye injury/surgery, wears glasses or contacts. ?Ear/Nose/Throat: ?The patient NOTES allergies, denies hayfever, denies ear infections, and denies bloody noses. ?Cardiovascular: ?The patient denies chest pain, NOTES heart disease, NOTES high blood pressure,NOTES cardiac stent, NOTES prior heart attack, denies irregular heart beat, denies high cholesterol, ?denies poor circulation, denies heart failure, other cardiac issues, NOTES claudication, denies cold feet, denies peripheral arterial stent. ?Respiratory: ?The patient denies tuberculosis, NOTES pneumonia, denies frequent cough, NOTES pulmonary embolism, denies shortness of breath, and denies coughing up blood. ?Gastrointestinal: ?The patient denies difficulty swallowing, NOTES acid reflux, denies ulcers, denies vomiting, denies jaundice/hepatitis, denies gallbladder problems, denies black or tarry stools, denies hemorrhoids, denies bleeding from rectum, denies diverticulitis, denies constipation, NOTES diarrhea, denies loss of stool control, and denies hernias. ?Kidney/Bladder: ?The patient denies kidney stones, denies urine infections, and denies bloody urine. ?Skin: ?The patient denies a history of skin cancer, denies bleeding/changing moles, and denies a history of skin rash. ?Neurologic: ?The patient denies a history of epilepsy/convulsions, NOTES headaches, denies head/spinal injuries, and NOTES stroke/TIA. ?Psychiatric: ?The patient denies psychiatric medications, NOTES depression, and denies voices, denies substance abuse. ?Endocrine: ?The patient denies thyroid disorders, denies diabetes, and denies hormonal problems. ?Hematologic: ?The patient denies a history of bruising, denies bleeding, and denies anemia, denies blood clots. ?Infections: ?The patient denies a history of measles and mumps, denies rheumatic fever, and denies sexually transmitted diseases. ?Musculoskeletal: ?The patient NOTES back pain/injury, NOTES back problems, denies sciatica, denies knee/foot trouble, NOTES arthritis, or NOTES gout. ? ? When was patient's last Mammogram screening? N/A ? ?Last Colonoscopy: ?08/05 ? Dustin Sharma LPN ? PHYSICAL EXAMINATION: ? General: ?The patient is 63 year old male, well nourished, well hydrated in no acute distress. ?The patient is oriented to time, place, and person. ? VITALS:?Blood pressure 138/66, pulse 79, temperature 36.7 ?C (98 ?F), temperature source Temporal Artery, height 195.6 cm (6' 5), weight (!) 151 kg (332 lb 12.8 oz), SpO2 98 %.?Body mass index is 39.46 kg/m?.? ? HEENT: ?Normal cephalic, ataumatic, pupils are equally round, sclera are anicteric, mucous membranes are moist, oropharynx is clear. ?Neck has no masses, asymmetry or lymphadenopathy. ?Thyroid is unremarkable. ? Respiratory: ?Clear to auscultation and percussion. ?Normal respiratory excursion and pattern. ? Cardiac: ?Examination is regular rate and rhythm. ? Abdominal exam: ?Soft, tender?along the linea alba and at the level of the umbilicus, ?with no palpable masses. ?No hepatosplenomegaly. ?The patient does have diastases recti without a discrete hernia noted in the upper midline. ?He has a palpable and mostly reducible umbilical hernia.??No palpable?inguinal?hernias. ? Rectal exam:?exam deferred ? Extremities: ?no clubbing, cyanosis or edema. ?No adenopathy. ? Other: ? LABORATORY VALUES: As Noted ? RADIOLOGIC STUDIES: ?As Noted ? Assessment ? IMPRESSION:?Umbilical hernia,??Diastasis recti, rectal bleeding, abdominal pain, history of esophagitis, history of colon polyp, heart disease, complex past medical history ? PLAN: ?I plan to perform upper and lower?endoscopy. ??We discussed the risks and benefits of the planned endoscopy. ?I have informed the patient that complications can occur including failure to complete the endoscopy and perforation. ?The patient had the opportunity to ask questions concerning the planned endoscopy. ?My staff has also explained the procedure to the patient in understandable terms and has given the patient printed material concerning the procedure. ?The patient freely consents to surgery. ? I plan to use golytely bowel preparation for endoscopy ? The patient has medical comorbidities for which I plan to perform the procedure under monitored anesthetic care.? ? We will first perform upper and lower endoscopy. ?After reviewing the patient's complex medical history most likely plan to obtain a CT scan of the abdomen and pelvis we will then consider repair at this point without more significant symptoms as his discomfort improves over the next few weeks, I would likely not recommend hernia repair. ? Diagnoses:?(R19.5) Heme positive stool ?(primary encounter diagnosis) (R10.13) Epigastric pain (K42.9) Umbilical hernia without obstruction and without gangrene (M62.08) Diastasis recti ? My findings have been communicated to Dr.??Jagjit Myers MD?via shared medical record. ?This note will be forwarded to Dr. Jagjit Myers MD. ?? Return to Clinic: The patient is instructed to follow-up with me?after the testing has been completed. ? Harley Lofton MD
[2019-01-28] VITALS (7 sets, daily range): BP systolic 95–147; BP diastolic 53–87; PULSE 63–75; RESP 16–18; TEMP 36.6; O2SAT 96–97; BMI 38.7
--- NOTE | 2019-01-28 | IMM_PTH ---
PATIENT: JERO GARZON LOC: EN U#:[id number] AGE/SX: 63/M ROOM: RE01/28/[address]: Dr. Harley Lofton MD : 1955 BED: DIS: 01/28/2019 SPEC #: [id number] RECD: 01/29/19 12:42 STATUS: DALE REQ #: [id number] LISSY: 01/28/19 00:[address]: Harley Lofton DEPT: IMMUNOHISTOCHEMISTRY RECD BY: Malika Sosa ENTERED: 01/29/19 12:43 SP TYPE: IMMUNO OTHR DR: Dr. Jagjit Myers MD Tissues: D - Esophageal mucous membrane Procedures: P53 (initial) PHYSICIAN & INSTITUTION [place] [id number] SPECIMEN INFORMATION: Tissue Source: D - GE junction biopsy Clinical Info: Heme-positive stool, colon polyp, esophagitis, change in bowel habits, epigastric pain Specimen Number: [id number] CPT code: 00546 METHODOLOGY: Deparaffinized sections of prefer/formalin-fixed tissue or PAP/DQ stained slides are incubated with monoclonal/polyclonal antibodies/oligonucleotide probes. Localization is made via biotin free immunoperoxidase method. Appropriate controls are performed and reacted as expected. Results on target cell population are indicated in the following table: RESULTS: ANTIBODY / CLONE RESULT Block D P53 (DO-7) negative These tests were developed and their performance characteristics determined by [facility]. They may not have been cleared or approved by the U.S. Food and Drug Administration. The FDA has determined that such clearance or approval is not necessary. INTERPRETATION: D. GE junction biopsy: No evidence of dysplasia. AM:alanis 01/30/19
--- NOTE | 2019-01-28 08:45 | COLBX_PTH ---
PATIENT: JERO GARZON LOC: EN U#:[id number] AGE/SX: 63/M ROOM: RE01/28/[address]: Dr. Harley Lofton MD : 1955 BED: DIS: 01/28/2019 SPEC #: [id number] RECD: 01/28/19 10:21 STATUS: DALE MAGDIEL #: [id number] LISSY: 01/28/19 08:[address]: Harley Lofton DEPT: SURGICAL PATHOLOGY RECD BY: Curly Rayo ENTERED: 01/28/19 12:00 SP TYPE: COLON BX OTHR DR: Dr. Jagjit Myers MD Tissues: A - Jejunum, NOS B - Gastric mucous membrane C - Gastric mucous membrane D - Gastric mucous membrane E - COLON BIOPSY F - Transverse colon G - Transverse colon H - Sigmoid colon biopsy I - Rectum, NOS Procedures: Special Stain Group II Surgery Specimen Level IV Alcian Blue/PAS (control) HEADER OPERATION: Colonoscopy, EGD ([facility] [place]) PRE-OP DIAGNOSIS: Heme-positive stool, history colon polyp and esophagitis, change in bowel habits, epigastric pain TISSUE SUBMITTED: A. Jejunal biopsy, B. Antral biopsy, C. Gastric fundal polyp, D. GE junction biopsy, E. Random colonic biopsies, F. Polyp at proximal transverse, G. Polyp at mid-transverse, H. Sigmoid biopsy, I. Rectal polyp MICROSCOPIC DIAGNOSIS A. Jejunum, biopsy: No significant pathologic change. B. Gastric antrum, biopsy: Minimal chronic inflammation. C. Gastric fundal polyp, biopsy: Fragments of benign superficial gastric mucosa. See comment. D. Gastroesophageal junction, biopsy: Focal goblet cell metaplasia. No evidence of dysplasia. See comment. E. Colon, random biopsy: No pathologic diagnosis. F. Proximal transverse colon polyp, biopsy: Fragments of tubular adenoma. Fecal debris. G. Mid transverse colon polyp, biopsy: Fragments of tubular adenoma. Fecal debris. H. Sigmoid colon, biopsy: No pathologic diagnosis. I. Rectal polyp, biopsy: Benign mucosal polyp. See comment. AM:alanis 01/29/19 COMMENT C. A distinct polyp is not identified. D. Immunohistochemistry ([id number]) supports the above diagnosis. Alcian blue/PAS stain with matched control supports the above diagnosis. I. Neither hyperplastic nor adenomatous is identified. Clinical correlation is suggested. MICROSCOPIC DESCRIPTION Slides are reviewed. GROSS DESCRIPTION A - Received in fixative is one container labeled with the patient's name and designated jejunum biopsy. The specimen consists of multiple irregular fragments of light blue soft tissue that in aggregate measure 0.3 x 0.2 x 0.1 cm. The specimen is totally submitted in one cassette. B - Received in fixative is one container labeled with the patient's name and designated antral biopsy. The specimen consists of one irregular fragment of light blue soft tissue that measures 0.5 x 0.3 x 0.1 cm. The specimen is totally submitted in one cassette. C - Received in fixative is one container labeled with the patient's name and designated gastric fundal polyp. The specimen consists of one irregular fragment of light blue soft tissue that measures 0.5 x 0.2 x 0.1 cm. The specimen is totally submitted in one cassette. D - Received in fixative is one container labeled with the patient's name and designated GE junction biopsy. The specimen consists of one irregular fragment of light blue soft tissue that measures 0.3 x 0.2 x 0.1 cm. The specimen is totally submitted in one cassette. E - Received in fixative is one container labeled with the patient's name and designated random colon biopsy. The specimen consists of multiple irregular fragments of light blue soft tissue that in aggregate measure 0.6 x 0.3 x 0.1 cm. The specimen is totally submitted in one cassette. F - Received in fixative is one container labeled with the patient's name and designated polyp at proximal transverse colon. The specimen consists of multiple irregular fragments of light blue soft tissue and fecal debris that in aggregate measure 1 x 0.5 x 0.1 cm. The specimen is totally submitted in one cassette. G - Received in fixative is one container labeled with the patient's name and designated mid transverse colon polyp. The specimen consists of multiple irregular fragments of light blue soft tissue that in aggregate measure 0.8 x 0.6 x 0.1 cm. The specimen is totally submitted in one cassette. H - Received in fixative is one container labeled with the patient's name and designated sigmoid biopsy. The specimen consists of one irregular fragment of light blue soft tissue that measures 0.3 x 0.3 x 0.1 cm. The specimen is totally submitted in one cassette. I - Received in fixative is one container labeled with the patient's name and designated rectal polyp. The specimen consists of one irregular fragment of light blue soft tissue that measures 0.2 x 0.2 x 0.1 cm. The specimen is totally submitted in one cassette. / AM:alanis 01/28/19 TC:5 CPT: 15261 x9, 66041
--- NOTE | 2019-01-28 10:04 | OP.ENDO_ITS ---
01/28/2019 Jagjit Myers Re : Upper GI endoscopy procedure for Lazaro Antony Lucia This procedure was performed on Monday, January 28, 2019. My impressions and recommendations are as follows: Impressions : - Normal examined jejunum. Biopsied. - Normal examined duodenum. - Gastritis. Biopsied. - A few gastric polyps. Resected and retrieved. - Non-severe reflux esophagitis. Biopsied. Recommendations : - Return to my office in 1 week. - Continue present medications. My findings are described in the full procedure note, which is enclosed. If I can be of further assistance, please feel free to contact me at Doctor phone number(s): , Work: . Sincerely, Harley Lofton MD 01/28/2019 10:03:58 AM This report has been signed electronically.
--- NOTE | 2019-01-28 10:07 | OP.ENDO_ITS ---
01/28/2019 Jagjit Myers Re : Colonoscopy procedure for Lazaro Antony Lucia This procedure was performed on Monday, January 28, 2019. My impressions and recommendations are as follows: Impressions : - Three small polyps in the rectum, in the proximal transverse colon and in the mid transverse colon, removed with a hot snare. Resected and retrieved. - Diverticulosis in the entire examined colon. - The examination was otherwise normal. - The distal rectum and anal verge are normal on retroflexion view. Recommendations : - Discharge patient to home. - Resume previous diet. - Continue present medications. - Repeat colonoscopy in 3 years for surveillance based on pathology results. - Return to my office in 1 week. My findings are described in the full procedure note, which is enclosed. If I can be of further assistance, please feel free to contact me at Doctor phone number(s): , Work: . Sincerely, Harley Lofton MD 01/28/2019 10:06:46 AM This report has been signed electronically.
== END 2019-01-28 10:50 | disposition home or self-care (01) ==
LOC: EN 07:36 → AC 07:36
PROVIDERS: Family Provider Family Medicine; PCP Family Medicine; Referring Provider Surgery; Visit Provider Surgery
PROC: 0DJD8ZZ Inspection of Lower Intestinal Tract, Via Natural or Artificial Opening Endoscopic (ICD-10-PCS; CPT 45378; principal; 2019-01-28 08:40)
DX: K63.5 Polyp of colon (principal); K62.1 Rectal polyp; D12.3 Benign neoplasm of transverse colon; D12.4 Benign neoplasm of descending colon; K29.70 Gastritis, unspecified, without bleeding; R19.4 Change in bowel habit; K42.9 Umbilical hernia without obstruction or gangrene; M62.08 Separation of muscle (nontraumatic), other site; Z86.010 Personal history of colon polyps; Z87.891 Personal history of nicotine dependence; I10 Essential (primary) hypertension; I25.10 Atherosclerotic heart disease of native coronary artery without angina pectoris; J45.909 Unspecified asthma, uncomplicated; M54.5 Low back pain; G89.29 Other chronic pain; Z79.82 Long term (current) use of aspirin
CPT/HCPCS: 43239; 45385; 88305; 88313; 88342; J7120; A4216; J2405

== ENCOUNTER 2019-03-16 15:27 | Emergency (ER) | payer OTHER, SELFPAY ==
[2019-01-28 07:51] VITALS: BMI 38.7
[2019-03-16 15:28] VITALS: BP 136/76; PULSE 79; RESP 16; TEMP 36.8; O2SAT 98; BMI 39.7
--- NOTE | 2019-03-16 16:28 | CT_ITS ---
STUDY: CT ABDOMEN AND PELVIS WITH CONTRAST REASON FOR EXAM: Male, 63 years old. Left lower quadrant tenderness, general fatigue, nausea RADIATION DOSAGE (If Supplied By Facility): CTDIvol = ( 17.07 ) mGy, DLP = ( 1477.50 ) mGycm TECHNIQUE: Transaxial images were obtained from the dome of the diaphragm to the symphysis pubis without oral contrast. IV Isovue 300 100 was administered. Sagittal and coronal images were reconstructed. Individualized dose optimization techniques were used for this CT. COMPARISON: Prior study of July 23, 2018 FINDINGS: The visualized lung bases are unremarkable. The visualized portions of the heart are within normal limits. There is a small right hepatic lobe cyst. There is non-visualization of the gallbladder, which may be secondary to either contraction or a prior cholecystectomy. Normal spleen. Normal pancreas. The right adrenal is normal. There is a 1.8 cm left adrenal nodule, stable in the interval. There is a 4.2 cm right renal cyst. Normal left kidney. Normal visualized stomach. Normal small intestine. There is colonic diverticulosis with no evidence of associated diverticulitis. The appendix is visualized and appears normal. There are several small calcified plaques of the abdominal aorta. Normal inferior vena cava. Normal retroperitoneum. Normal urinary bladder. The prostate is enlarged. Penile implants are present within the implant pump seen in the anterior right pelvis. There is a small umbilical hernia containing fat. There are sclerotic foci of the T10 and T11 vertebral bodies, stable in the interval. CT/Abdomen/Pelvis W IV Cont ONLY IMPRESSION: 1. Stable right hepatic lobe cyst. 2. Stable 1.8 cm left adrenal nodule. 3. Stable 4.2 cm right renal cyst. 4. Colonic diverticulosis with no evidence of associated diverticulitis. 5. Enlarged prostate. 6. There are penile implants with the implant pump seen in the anterior right pelvis. 7. Small fat-containing umbilical hernia. 8. Stable sclerotic foci of the T10 and T11 vertebral bodies. 9. There is no evidence of free intra-abdominal or intrapelvic air, fluid, or inflammatory process. Electronically Signed: Benji Mckay MD at 18:00 EDT , Service support ,
--- NOTE | 2019-03-16 16:28 | EKG12_ITS ---
Test Reason : PAIN Blood Pressure : / mmHG Vent. Rate : 062 BPM Atrial Rate : 062 BPM P-R Int : 264 ms QRS Dur : 088 ms QT Int : 404 ms P-R-T Axes : 076 -37 025 degrees QTc Int : 410 ms Sinus rhythm with 1st degree A-V block Left axis deviation Minimal voltage criteria for LVH, may be normal variant Abnormal ECG Confirmed by GABRIELA CONTI, KIRAN ([id number]), editorial project manager LANETTE EMMANUEL ([id number]) on 03/18/2019 3:11:51 PM Referred By: Confirmed By:KIRAN OCHOA MD
[2019-03-16] MEDS: 0.9% Normal Saline 1,000 ML 1000 ML IV (16:33)
[2019-03-16] MEDS: Ondansetron 4 MG/2 ML Vial IV (16:34)
[2019-03-16 16:53] LABS: Bacteria 0 SEEN /hpf (None Seen); Mucous, Urine 0 SEEN /hpf (<or=2+); Red Blood Cells-Urine 0 SEEN /hpf (0-5)
[2019-03-16 16:56] LABS: Absolute Lymphocyte Count 1.32 X10^3/uL (0.83-4.51); Absolute Neutrophil Count 4.6 X10^3/uL (2.0-7.7); Basophil# 0.02 X10^3/uL; Basophil% 0.3 % (0-1); Eosinophil# 0.07 X10^3/uL; Eosinophils% 1.1 % (0-5); Hematocrit 49.9 % (40-54); Hemoglobin 16.8 g/dL (13.0-16.5); Lymphocyte # 1.32 X10^3/ul (4.0); Lymphocyte % 19.9 % (19-41); Mean Corp Hgb Conc 33.7 g/dL (32-36); Mean Corpuscular Hgb 28.6 pg (27.0-32.0); Mean Corpuscular Volume 84.9 fL (80-94); Mean Platelet Vol. 11.5 fl (6.2-12.0); Monocyte# 0.58 X10^3/uL; Monocyte% 8.7 % (0-10); NRBC Flagged by Analyzer 0 % (0-5); Neutrophil # 4.62 X10^3/uL (2.7-7.7); Neutrophil % 69.7 % (47-70); Platelet Count 149 K/mm3 (150-450); RBC Distribution Width CV 12.9 % (11.6-14.6); RBC Distribution Width SD 39.6 fl (35.1-43.9); Red Blood Count 5.88 M/mm3 (4.6-6.2); White Blood Count 6.6 K/mm3 (4.4-11.0)
[2019-03-16 16:57] LABS: Color, Urine Yellow (Yellow); Glucose, Dipstick Normal (Normal); Nitrite-Dipstick Negative (Negative); Occult Blood-Urine Negative /ul (Negative); Protein-Dipstick Negative (Negative); Urine Bilirubin Dipstick Negative (Negative); Urine Clarity Clear (Clear); Urine Urobilinogen Normal (Normal)
[2019-03-16 17:12] LABS: ALB/GLOB Ratio 1.1 RATIO (0.9-2.4); AST(SGOT) 20 U/L (15-37); Alanine Aminotransfer ALT/SGPT 37 U/L (16-61); Albumin, Serum 3.9 g/dL (3.2-5.0); Alkaline Phosphatase 79 U/L (45-117); Anion Gap 5 (5-15); BUN 16 mg/dL (7-18); BUN/Creat Ratio 12.8 RATIO (10-20); Calcium,Total 8.9 mg/dL (8.5-10.1); Chloride 108 mmol/L (98-107); Creatinine, Serum 1.25 mg/dL (0.70-1.30); EST Glomerular Filtration Rate 62 mL/min (>60); Est Glom Filt Rate - Afr Amer 75 mL/min (>60); Estimated Creatinine Clearance 78.21 ml/min; Globulin 3.5 g/dL (2.2-4.2); Glucose 110 mg/dL (74-106); Potassium 3.7 mmol/L (3.5-5.1); Protein, Total 7.4 g/dL (6.4-8.2); Sodium Level 140 mmol/L (136-145)
[2019-03-16 17:14] LABS: Ketone-Dipstick 5 mg/dl (Negative)
[2019-03-16 17:15] LABS: Leukocyte Esterase-Dipstick 25 /ul (Negative)
[2019-03-16 17:20] LABS: Squamous Epithelial Cells - UA 0-5 SEEN /hpf (0-5); White Blood Cells 0-5 SEEN /hpf (0-5)
[2019-03-16 18:21] VITALS: BP 168/83; PULSE 58; RESP 14; O2SAT 96
--- NOTE | 2019-03-16 18:58 | ED.VIS.GEN ---
History of Present Illness Chief Complaint: Abd Pain Informant: Patient Onset: Days - 5-6 Context: Gradual Onset Timing: Continuous Quality: ache Location: more in perineum than in abd, but feel bloated and nauseated Current Severity: Mild Maximum Severity: Mild Worsened by: nothing Relieved by: urinating Associated Symptoms: more frequent BMs, extreme malaise/fatigue today Narrative: Patient states he has had pain like this with prostatitis before. States his abdomen feels achy and bloated but he does not have any specific abdominal pain it is more perineum. It does not hurt to urinate or have a bowel movement. He is making a good stream of urine. There is no hematuria or urgency. He is going more frequently. He was concerned and did not want to wait till after the weekend because he became very fatigued and malaised today. No fevers or chills that he knows of. No vomiting but nauseated. No bright red blood per rectum or melena. Prior similar symptoms: Yes - prostatitis Recent Illness/Hospitalization: No - Past Medical History (1) UTI (urinary tract infection) Status: Resolved (2) CAD (coronary atherosclerotic disease) Status: Chronic Comment: PTCA/stent to LAD 08/29 (3) Claudication Status: Chronic (4) Essential hypertension Status: Chronic (5) HLD (hyperlipidemia) Status: Chronic (6) Presence of stent in coronary artery Status: Chronic Comment: PTCA/stent to LAD 08/29 (7) Pulmonary embolism Status: Chronic (8) Testosterone deficiency Status: Chronic Past Medical History - Allergies and Home Meds Allergies/Adverse Reactions: Allergies Sulfa (Sulfonamide Antibiotics) Allergy (Verified 03/16/19 15:31) Unknown Primary Care Physician: Gamal Ramos MD [STAFF PHYSICIAN] - 3-5 Days Jagjit Myers MD [Primary Care Provider] - Surgical History: angioplasty Lives: Spouse/ Significant Other Smoking Status: Former smoker - Family History Maternal Family History: Family History (Last Reviewed 11/27/18 @ 15:15 by Ashley Gaines) Mother CAD (coronary artery disease) Hypertension Hx of CABG Father Hypertension Myocardial infarction Grandfather Myocardial infarction Grandmother Cancer Grandfather CAD (coronary artery disease) Family History: Reports: Heart Disease Paternal Family History: Family History (Last Reviewed 11/27/18 @ 15:15 by Ashley Gaines) Mother CAD (coronary artery disease) Hypertension Hx of CABG Father Hypertension Myocardial infarction Grandfather Myocardial infarction Grandmother Cancer Grandfather CAD (coronary artery disease) Family History: Reports: Heart Disease Review of Systems General: Reports: Malaise. Denies: Chills, Fever, Sweats Eyes: Denies: Visual changes - bilaterally, Diplopia ENT: Denies: Rhinorrhea, Sore throat Cardiovascular: Denies: Chest pain, Palpitations Respiratory: Denies: Dyspnea, Cough, Dyspnea on exertion Gastrointestinal: Reports: Abdominal pain, Nausea. Denies: Vomiting, Diarrhea, Melena, Hematochezia Genitourinary: Reports: Frequency. Denies: Dysuria, Hematuria Musculoskeletal: Denies: Neck pain, Back pain, Swelling, Extremity Pain Skin: Denies: Rash, Wounds Neurological: Denies: Headache, Weakness, Numbness Physical Exam Vital Signs/Narrative: Vital Signs Temp Pulse Resp BP Pulse Ox 03/16/19 18:21 58 L 14 168/83 H 96 03/16/19 15:28 98.3 F 79 16 136/76 H 98 Inital Vital Signs reviewed: Yes General: Well nourished, Well developed, Obese, No Acute Distress Head: Normocephalic, Atraumatic Eyes: Perrl, EOMI ENT: Moist mucous membranes, No rhinorrhea Neck: Supple, Nontender Cardiovascular: Regular rate, Regular rhythm, No murmurs Respiratory: No distress, CTA bilaterally, Chest nontender Abdomen: Soft, Nondistended, Normal bowel sounds, Tender - LLQ mostly, minimally suprapubic; otherwise, NT. Negative for: Guarding, Rebound tenderness Back: Nontender, Normal Inspection. Negative for: CVA tenderness Extremities: Nontender, No edema Skin: Normal color, No rash, No Trauma Neurological: Alert, Oriented x3, Cranial nerves II-XII grossly intact, Normal Strength, Normal Sensation Psychological: Normal affect, Normal Mood Diagnostic/Tx/Re-eval Impressions Abdomen/Pelvis CT 03/16/19 16:28 IMPRESSION: 1. Stable right hepatic lobe cyst. 2. Stable 1.8 cm left adrenal nodule. 3. Stable 4.2 cm right renal cyst. 4. Colonic diverticulosis with no evidence of associated diverticulitis. 5. Enlarged prostate. 6. There are penile implants with the implant pump seen in the anterior right pelvis. 7. Small fat-containing umbilical hernia. 8. Stable sclerotic foci of the T10 and T11 vertebral bodies. 9. There is no evidence of free intra-abdominal or intrapelvic air, fluid, or inflammatory process. Electronically Signed: Benji Mckay MD at 18:00 EDT , Service support , 03/16/19 16:28 Abdomen/Pelvis W IV Cont ONLY [CT] Stat Laboratory Results 03/16/19 03/16/19 03/16/19 16:00 16:05 16:05 WBC 6.6 RBC 5.88 Hgb 16.8 H Hct 49.9 MCV 84.9 MCH 28.6 MCHC 33.7 RDW Std Deviation 39.6 RDW Coeff of Lito 12.9 Plt Count 149 L MPV 11.5 Immature Gran % (Auto) 0.300 Neut % (Auto) 69.7 Lymph % (Auto) 19.9 Meriwether % (Auto) 8.7 Eos % (Auto) 1.1 Baso % (Auto) 0.3 Absolute Neuts (auto) 4.6 Absolute Lymphs (auto) 1.32 Nucleated RBC % 0 Sodium 140 Potassium 3.7 Chloride 108 H Carbon Dioxide 27.0 Anion Gap 5 BUN 16 Creatinine 1.25 Estim Creat Clear Calc 78.21 Est GFR (MDRD) Af Amer 75 Est GFR (MDRD) Non-Af 62 BUN/Creatinine Ratio 12.8 Glucose 110 H Lactic Acid Calcium 8.9 Total Bilirubin 0.60 AST 20 ALT 37 Alkaline Phosphatase 79 Troponin I < 0.015 Total Protein 7.4 Albumin 3.9 Globulin 3.5 Albumin/Globulin Ratio 1.1 Urine Color Yellow Urine Clarity Clear Urine pH 6.0 Ur Specific Adkins 1.020 Urine Protein Negative Urine Glucose (UA) Normal Urine Ketones 5 H Urine Occult Blood Negative Urine Nitrite Negative Urine Bilirubin Negative Urine Urobilinogen Normal Ur Leukocyte Esterase 25 H Urine RBC 0 SEEN Urine WBC 0-5 SEEN Ur Squamous Epith Cells 0-5 SEEN Urine Bacteria 0 SEEN Urine Mucus 0 SEEN 03/16/19 16:45 WBC RBC Hgb Hct MCV MCH MCHC RDW Std Deviation RDW Coeff of Lito Plt Count MPV Immature Gran % (Auto) Neut % (Auto) Lymph % (Auto) Meriwether % (Auto) Eos % (Auto) Baso % (Auto) Absolute Neuts (auto) Absolute Lymphs (auto) Nucleated RBC % Sodium Potassium Chloride Carbon Dioxide Anion Gap BUN Creatinine Estim Creat Clear Calc Est GFR (MDRD) Af Amer Est GFR (MDRD) Non-Af BUN/Creatinine Ratio Glucose Lactic Acid 1.0 Calcium Total Bilirubin AST ALT Alkaline Phosphatase Troponin I Total Protein Albumin Globulin Albumin/Globulin Ratio Urine Color Urine Clarity Urine pH Ur Specific Adkins Urine Protein Urine Glucose (UA) Urine Ketones Urine Occult Blood Urine Nitrite Urine Bilirubin Urine Urobilinogen Ur Leukocyte Esterase Urine RBC Urine WBC Ur Squamous Epith Cells Urine Bacteria Urine Mucus - Rhythm Strip Rhythm Strip: Sinus Rhythm Rate: 65 Ectopy: None - EKG Initial EKG Interpretation: Sinus Rhythm, No Acute Injury Pattern, - - left axis. 1st deg AVB. Prior: Unchanged - Medical Decision Making Labs do not show sepsis or any evidence of systemic response to infection. His urinalysis appears benign. CT shows lack of diverticulitis, he does have enlarged prostate on the imaging, he does not want me to palpate his prostate, states that he was diagnosed with infection there before and prefers to have treatment for that which I think is fine to do empirically given his history. I think he is stable to be discharged and treated as an outpatient, advised to follow-up after the weekend and he is comfortable with that plan. No clinical or ancillary evidence of pyelonephritis. ED Disposition - Plan for ED Patient: Disposition: Home or Assisted Living Diagnosis: Prostatitis, acute Instructions: Nonbacterial Prostatitis, Bacterial Prostatitis Prescriptions: Ciprofloxacin [Cipro] 500 mg PO BID #60 tab Prescription Printed Referrals: Jagjit Myers MD [Primary Care Provider] - Gamal Ramos MD [STAFF PHYSICIAN] - 3-5 Days
[2019-03-16] MEDS: Ciprofloxacin 500 MG Tablet PO (19:37)
== END 2019-03-16 19:48 | disposition home or self-care (01) ==
PROVIDERS: Emergency Provider Emergency Medicine; Family Provider Family Medicine; PCP Family Medicine
DX: N41.0 Acute prostatitis (principal); N40.0 Benign prostatic hyperplasia without lower urinary tract symptoms; E78.5 Hyperlipidemia, unspecified; I10 Essential (primary) hypertension; I25.10 Atherosclerotic heart disease of native coronary artery without angina pectoris; K42.9 Umbilical hernia without obstruction or gangrene; K57.30 Diverticulosis of large intestine without perforation or abscess without bleeding; K76.89 Other specified diseases of liver; N28.1 Cyst of kidney, acquired; Z82.49 Family history of ischemic heart disease and other diseases of the circulatory system; Z86.711 Personal history of pulmonary embolism; Z87.891 Personal history of nicotine dependence; Z88.2 Allergy status to sulfonamides; Z95.5 Presence of coronary angioplasty implant and graft
CPT/HCPCS: 36415; 74177; 80053; 81001; 83605; 84484; 85025; 87040; 93005; 96361; 96374; 99284; J7030; Q9967; A4216; J2405

== ENCOUNTER → 2019-07-09 06:12 | Outpatient (CLI) | payer OTHER, SELFPAY ==
[2019-06-07 15:23] VITALS: BMI 40.3
[2019-07-09 08:24] LABS: AST(SGOT) 23 U/L (15-37); Alanine Aminotransfer ALT/SGPT 50 U/L (16-61); Albumin, Serum 4.1 g/dL (3.2-5.0); Alkaline Phosphatase 80 U/L (45-117); Bilirubin, Direct 0.18 mg/dL (0.00-0.30); Cholesterol 151 mg/dL (200); Globulin 3.4 g/dL (2.2-4.2); High Density Lipoprotein 31 mg/dL; Protein, Total 7.5 g/dL (6.4-8.2); Triglycerides 377 mg/dL; Very Low Density Lipoprotein 75 mg/dL (5-40)
== END ==
PROVIDERS: PCP Family Medicine; Referring Provider Internal Medicine Cardiovascular Disease; Visit Provider Internal Medicine Cardiovascular Disease
DX: E78.00 Pure hypercholesterolemia, unspecified (principal)
CPT/HCPCS: 36415; 80061; 80076

== ENCOUNTER 2019-07-10 09:56 | Day surgery (SDC) | payer OTHER, SELFPAY ==
[2019-06-07 15:23] VITALS: BMI 40.3
[2019-07-09 07:48] LABS: Hematocrit 51.5 % (40-54); Hemoglobin 17.2 g/dL (13.0-16.5); Mean Corp Hgb Conc 33.4 g/dL (32-36); Mean Corpuscular Hgb 28.7 pg (27.0-32.0); Mean Corpuscular Volume 85.8 fL (80-94); Mean Platelet Vol. 10.9 fl (6.2-12.0); Platelet Count 168 K/mm3 (150-450); RBC Distribution Width CV 13.2 % (11.6-14.6); RBC Distribution Width SD 40.8 fl (35.1-43.9); White Blood Count 8.4 K/mm3 (4.4-11.0)
[2019-07-09 08:17] LABS: Anion Gap 6 (5-15); BUN 22 mg/dL (7-18); BUN/Creat Ratio 16.8 RATIO (10-20); Calcium,Total 8.5 mg/dL (8.5-10.1); Chloride 105 mmol/L (98-107); Creatinine, Serum 1.31 mg/dL (0.70-1.30); EST Glomerular Filtration Rate 59 mL/min (>60); Est Glom Filt Rate - Afr Amer 71 mL/min (>60); Glucose 143 mg/dL (74-106); Potassium 3.5 mmol/L (3.5-5.1); Sodium Level 139 mmol/L (136-145)
[2019-07-10] VITALS (11 sets, daily range): BP systolic 120–160; BP diastolic 42–81; PULSE 53–89; RESP 16–20; TEMP 36.3–37.2; O2SAT 96–100; BMI 39.6
[2019-07-10] MEDS: Lactated Ringers 1,000 ML 100 ML IV ×2 (10:27→14:02)
[2019-07-10] MEDS: Cefazolin 2 GM in 0.9% Normal Saline 100 ML IV (12:04)
--- NOTE | 2019-07-10 12:10 | PROS_PTH ---
PATIENT: JERO GARZON LOC: [facility] [place] U#:[id number] AGE/SX: 63/M ROOM: RE07/10/[address]: Dr. Gamal Ramos MD : [id number] BED: DIS: 07/11/2019 SPEC #: [id number] RECD: 07/10/19 16:02 STATUS: DALE VELOZ #: [id number] LISSY: 07/10/19 12:[address]: Gamal Ramos DEPT: SURGICAL PATHOLOGY RECD BY: Ronn Collins ENTERED: 07/11/19 08:37 SP TYPE: TURP OTHR DR: Dr. Jagjit Myers MD Tissues: Prostate, NOS Procedures: Surgery Specimen Level IV HEADER OPERATION: Cysto, TUR prostate, Olympus PRE-OP DIAGNOSIS: BPH TISSUE SUBMITTED: Prostate tissue MICROSCOPIC DIAGNOSIS Prostate tissue, TUR: Benign prostatic hyperplasia, glandular and stromal type. Focal mild acute and chronic inflammation. SJ:alanis 07/12/19 MICROSCOPIC DESCRIPTION Slides are reviewed. GROSS DESCRIPTION Received is one container labeled with the patient's name and designated prostate tissue. The specimen consists of multiple irregular fragments of pink-blue, rubbery, soft tissue that in aggregate weigh 12.1 gm and measure in aggregate 5 x 5.5 x 2 cm. The entire specimen is submitted in 12 cassettes. / SJ:alanis 07/11/19 TC:5 CPT: 33844
--- NOTE | 2019-07-10 12:29 | DCINST_ITS ---
Discharge Diet: Light diet - advance as tolerated Discharge Activity: Return to Normal Activity, May not drive while taking narcotic pain medications., May Shower Lifting Restrictions: NO lifting Call your doctor if your incision/area has: Sudden Increased Bleeding Call your doctor if you observe: Fever of 101 or Higher, Inability to urinate, Uncontrolled pain Suture Line Care: Avoid Pulling/Pushing, Avoid Pinching/Bending Instructions: Transurethral Resection of the Prostate (TURP): Home Recovery Allergies/Adverse Reactions: Allergies Sulfa (Sulfonamide Antibiotics) Allergy (Verified 07/10/19 10:17) Unknown Medications to take at Discharge Multivitamins,Ther W-Minerals [Multivitamin With Minerals] 1 tab PO DAILY 12/10/13 Allopurinol 100 mg PO DAILY 07/23/18 Cholecalciferol (VIT D3) [Vitamin D3] 1,000 unit PO DAILY 09/10/18 Cyanocobalamin (Vitamin B-12) [Vitamin B-12] 1,000 mcg PO DAILY 09/10/18 amlodipine 5 mg tablet 5 mg PO DAILY tab 11/27/18 potassium chloride 10 mEq tablet,extended release 20 meq PO DAILY tab 11/27/18 testosterone cypionate 100 mg/mL intramuscular oil 100 mg IM QWEEK ml 11/27/18 duloxetine 30 mg capsule,delayed release 60 mg PO DAILY cap 06/07/19 esomeprazole magnesium 20 mg capsule,delayed release 20 mg PO DAILY 06/07/19 Albuterol Inhaler [Ventolin Hfa] 1 - 2 puff INHALATION Q6H PRN PRN 07/08/19 Losartan Potassium [Cozaar] 25 mg PO DAILY 07/08/19 Prednisone 10 mg PO DAILY 07/08/19 Ciprofloxacin [Cipro] 500 mg PO BID #14 tab 07/10/19 Ibuprofen 600 mg PO Q6H PRN PRN #20 tab 07/10/19 Prednisone 07/10/19 The following prescriptions were given: Ciprofloxacin [Cipro] 500 mg PO BID #14 tab Transmission Status: Sent to [id number] Ibuprofen 600 mg PO Q6H PRN PRN #20 tab PRN Reason: Pain Score 1-10/10 Transmission Status: Received by [id number] Orders to be completed after discharge: Basic Metabolic Profile (BMP) Time Frame: 07/08/19, Facility: [facility], Location: Laboratory CBC-Complete Blood Cnt No Diff Time Frame: 07/08/19, Facility: [facility], Location: Laboratory Primary Care Physician: Jagjit Myers MD [Primary Care Provider] - Test Results: Test results from this visit will be discussed in further detail at your follow- up appointment, if applicable. Please Follow Up With: Gamal Ramos MD When: in 2 weeks, please call to make an appointment. Proposed Discharge Date: 07/11/19
[2019-07-10] MEDS: Lubricating Jelly 60 GM Tube 30 GM TOPICAL (12:49)
--- NOTE | 2019-07-10 13:30 | OP.PCM_ITS ---
Report of Operation Date of Procedure: 07/10/19 Pre-Operative Diagnosis: BPH with obstruction Post-Operative Diagnosis: Same Surgery/Procedure Performed:: Transurethral resection of the prostate Description of Surgical Findings:: 63-year-old male who has a significant voiding difficulties slow flow difficulty emptying his bladder he does have enlarged prostate bilateral hypertrophy the median lobe consider this we talked about the options of management he wants to proceed with surgical intervention with a TURP document the risk of surgery including retrograde ejaculation, bleeding, infection, rare risk of injury to the urinary sphincter and incontinence problems. Patient was taken back to the operating room after smooth induction of general anesthesia he was placed in dorsolithotomy position of note he was a difficult intubation for anesthesia. Penis and testicles were prepped and draped in usual sterile fashion, went into the bladder through the urethra with a 26 Maltese continuous flow resectoscope the entire length of the urethra was normal the pendulous urethra is normal bulbar urethra is normal sphincter was intact identified the verumontanum had a very steep angle change between the urethra prostate I did have a median lobe I then switched over to the resectoscope and resected the median lobe I then resected the right lobe of the prostate and then resect the left lobe of the prostate such that with the the button and vaporized the resection to smooth out that a flow test had a nice wide open flow went back in with a 24 Maltese noncontinuous flow resectoscope could see that the sphincter was intact coapted nicely and then he had a nice wide open channel from the verumontanum all the way into the bladder neck obtain hemostasis with electrocautery and then Ellik out of the chips out of the bladder but a catheter in the bladder and continuous bladder irrigation and the urine was nice and clear the resection time about 1 hour. Type of Anesthesia:: General Drains: 3 way santana - Admit VTE Documentation VTE Present on Admission: No VTE Mechan Device Prophylaxis: SCD's
[2019-07-10] MEDS: 0.9% Normal Saline 1,000 ML 75 ML IV (15:49)
[2019-07-10] MEDS: Ciprofloxacin 400 MG/200 ML BAG 200 MG IV (19:36)
[2019-07-10] MEDS: Acetaminophen 325 MG Tablet PO (20:37)
[2019-07-10] MEDS: Docusate Sodium 100 MG Capsule PO (22:10)
[2019-07-11 02:01] VITALS: BP 128/71; PULSE 82; RESP 18; TEMP 37.1; O2SAT 97
[2019-07-11] MEDS: 0.9% Normal Saline 1,000 ML 75 ML IV (05:17)
[2019-07-11 05:31] LABS: Hematocrit 45.1 % (40-54); Hemoglobin 15.3 g/dL (13.0-16.5); Mean Corp Hgb Conc 33.9 g/dL (32-36); Mean Corpuscular Hgb 29.1 pg (27.0-32.0); Mean Corpuscular Volume 85.7 fL (80-94); Mean Platelet Vol. 10.9 fl (6.2-12.0); Platelet Count 184 K/mm3 (150-450); RBC Distribution Width CV 13.1 % (11.6-14.6); RBC Distribution Width SD 40.5 fl (35.1-43.9); Red Blood Count 5.26 M/mm3 (4.6-6.2); White Blood Count 14.5 K/mm3 (4.4-11.0)
[2019-07-11 05:54] LABS: Anion Gap 7 (5-15); BUN 17 mg/dL (7-18); BUN/Creat Ratio 13.8 RATIO (10-20); Calcium,Total 8.5 mg/dL (8.5-10.1); Chloride 108 mmol/L (98-107); Creatinine, Serum 1.23 mg/dL (0.70-1.30); EST Glomerular Filtration Rate 63 mL/min (>60); Est Glom Filt Rate - Afr Amer 77 mL/min (>60); Estimated Creatinine Clearance 79.48 ml/min; Glucose 141 mg/dL (74-106); Potassium 3.7 mmol/L (3.5-5.1); Sodium Level 140 mmol/L (136-145)
--- NOTE | 2019-07-11 05:56 | NURSING ---
clamped CBI at 0550 per order.
[2019-07-11] MEDS: Ciprofloxacin 400 MG/200 ML BAG 200 MG IV (07:27)
--- NOTE | 2019-07-11 07:30 | NURSING ---
Removed CBI per order. Pt tolerated well.
[2019-07-11 08:00] VITALS: BP 152/80; PULSE 72; RESP 14; TEMP 36.9; O2SAT 100
[2019-07-11] MEDS: Pantoprazole Sodium 40 MG Tablet PO (08:42)
[2019-07-11] MEDS: DULoxetine Hcl 60 MG Capsule PO (08:42)
[2019-07-11] MEDS: amLODIPine 5 MG Tablet PO (08:42)
[2019-07-11] MEDS: Multivitamins,Ther W-Minerals Tablet 1 TABLET PO (08:43)
[2019-07-11] MEDS: Cyanocobalamin 500 MCG Tablet 1000 MCG PO (08:43)
[2019-07-11] MEDS: Docusate Sodium 100 MG Capsule PO (08:43)
[2019-07-11] MEDS: Allopurinol 100 MG Tablet PO (08:43)
[2019-07-11] MEDS: Losartan Potassium 25 MG Tablet PO (08:43)
[2019-07-11] MEDS: predniSONE 10 MG Tablet PO (08:43)
--- NOTE | 2019-07-11 10:37 | CASEMGMT ---
LW/POA forms not on file. SW let pt and know, they will bring the forms in as able. LALIT Reeves
== END 2019-07-11 12:06 | disposition home or self-care (01) ==
LOC: SDC 09:57 → AC 09:58 → MS3 07-11 10:39
PROVIDERS: Family Provider Family Medicine; PCP Family Medicine; Referring Provider Urology; Visit Provider Urology
PROC: (CPT 52601; principal; 2019-07-10 12:00)
DX: N40.1 Benign prostatic hyperplasia with lower urinary tract symptoms (principal); N41.1 Chronic prostatitis; R31.0 Gross hematuria; R35.0 Frequency of micturition; I25.10 Atherosclerotic heart disease of native coronary artery without angina pectoris; I10 Essential (primary) hypertension; J45.909 Unspecified asthma, uncomplicated; Z87.891 Personal history of nicotine dependence; G47.30 Sleep apnea, unspecified
CPT/HCPCS: 00914; 52601; 36415; 80048; 85027; 88305; 99251; 99406; J7030; J7120; 90686; G0463; J0744; J2405

== ENCOUNTER → 2019-11-08 09:36 | Outpatient (CLI) | payer OTHER, SELFPAY ==
[2019-07-23 09:33] VITALS: BMI 39.6
--- NOTE | 2019-11-08 09:43 | MRI_ITS ---
STUDY: MRI LUMBAR SPINE WITHOUT CONTRAST REASON FOR EXAM: Male, 64 years old. Low back pain, radiculopathy TECHNIQUE: Standardized fat and water weighted pulse sequences were obtained in the sagittal and axial planes. COMPARISON: CT abdomen and pelvis with contrast 03/08/2019. FINDINGS: T12-L1: (Sagittal only). Normal T12 inferior endplate. Old anterior wedge compression fracture of the upper L1 vertebral body is unchanged. This accounts for the increased disc space height. Normal disc hydration and morphology. Normal central canal and bilateral intervertebral neural foramina. Normal lumbar lordosis. There is no substantial scoliosis. Barely included conus medullaris that terminates at the upper T12 vertebral body level. L1-2: Normal endplates. Normal disc height, hydration and morphology. Normal bilateral facet joints. Normal central canal and bilateral lateral recesses. Normal bilateral intervertebral neural foramina. Prominent right renal cyst is visible at this level. L2-3: Normal endplates. Normal disc height, hydration and morphology. Mild central canal stenosis with an AP canal diameter of 9 mm. This is secondary to developmentally short pedicles and prominent dorsal epidural lipomatosis. Normal bilateral lateral recesses. Mild degenerative facet arthropathy. Normal bilateral intervertebral neural foramina. L3-4: Normal endplates. Normal disc height, hydration and morphology. Moderate central canal stenosis with an AP canal diameter is 7.2 mm. Normal bilateral lateral recesses. Mild degenerative facet arthropathy. Normal bilateral intervertebral foramina. L4-5: Normal endplates. Normal disc height. Small posterior annular bulging disc. Severe central canal stenosis with an AP canal diameter of 4 mm. This is secondary to developmentally short pedicles and prominent dorsal epidural lipomatosis. Mild bilateral degenerative facet arthropathy. Normal bilateral intervertebral neural foramina. L5-S1: Normal endplates. Minimal disc space height narrowing. Moderately pronounced central canal stenosis with an AP canal diameter of 6 mm. Mild epidural lipomatosis. Normal bilateral lateral recesses. Mild degenerative facet arthropathy. Normal bilateral intervertebral neural foramina. Normal visualized sacral ala. Normal visualized paraspinous soft tissue structures. MRI/Spine Lumbar (Routine) IMPRESSION: 1. Severe central canal stenosis at L4-L5 disc level with an AP canal diameter of 4 mm. This is secondary to small posterior annular bulging disc, developmentally short pedicles and prominent dorsal epidural lipomatosis. 2. Moderate central canal stenosis at L3-L4 disc level with an AP canal diameter is 7.2 mm a period 3. Mild central canal stenosis at L2-L3 disc level with AP canal diameter of 9 mm. 4. Moderately pronounced central canal stenosis at L5-S1 disc level with an AP canal diameter of 6 mm. 5. Old anterior wedge compression fracture of the upper L1 vertebral body is unchanged. 6. Prominent right renal cyst. 7. No significant interval change when compared to CT abdomen and pelvis of 03/17/2019. Electronically Signed: Stew Arzola MD at 11:58 EDT , Service support ,
== END ==
PROVIDERS: PCP Family Medicine; Referring Provider Physician Assistant; Visit Provider Physician Assistant
DX: M54.16 Radiculopathy, lumbar region (principal); M54.5 Low back pain
CPT/HCPCS: 72148

== ENCOUNTER → 2019-12-23 08:13 | Outpatient (CLI) | payer OTHER, SELFPAY ==
[2019-12-05 15:31] VITALS: BMI 39.4
[2019-12-23 08:47] LABS: Hematocrit 50.2 % (40-54); Hemoglobin 16.5 g/dL (13.0-16.5); Mean Corp Hgb Conc 32.9 g/dL (32-36); Mean Corpuscular Hgb 29.4 pg (27.0-32.0); Mean Corpuscular Volume 89.5 fL (80-94); Mean Platelet Vol. 11.2 fl (6.2-12.0); Platelet Count 159 K/mm3 (150-450); RBC Distribution Width CV 12.7 % (11.6-14.6); RBC Distribution Width SD 41.7 fl (35.1-43.9); Red Blood Count 5.61 M/mm3 (4.6-6.2); White Blood Count 6.6 K/mm3 (4.4-11.0)
[2019-12-23 09:17] LABS: AST(SGOT) 20 U/L (15-37); Alanine Aminotransfer ALT/SGPT 45 U/L (16-61); Albumin, Serum 3.9 g/dL (3.2-5.0); Alkaline Phosphatase 75 U/L (45-117); Bilirubin, Direct 0.28 mg/dL (0.00-0.30); Cholesterol 102 mg/dL (200); Globulin 3.3 g/dL (2.2-4.2); High Density Lipoprotein 33 mg/dL; PSA,Total- Diagnostic 2.29 ng/mL (0.0-4.0); Protein, Total 7.2 g/dL (6.4-8.2); Triglycerides 154 mg/dL; Very Low Density Lipoprotein 31 mg/dL (5-40)
[2019-12-27 12:08] LABS: Testosterone, Free 10.47 ng/dL (5.00-21.00)
[2019-12-27 21:14] LABS: Testosterone, % Free 3.55 % (1.50-4.20); Testosterone, Total 295 ng/dL (264-916)
== END ==
PROVIDERS: Internal Medicine Cardiovascular Disease; PCP Family Medicine; Referring Provider Urology; Visit Provider Urology
DX: R97.20 Elevated prostate specific antigen [PSA] (principal); Z48.816 Encounter for surgical aftercare following surgery on the genitourinary system; E29.1 Testicular hypofunction
CPT/HCPCS: 36415; 80061; 80076; 84153; 84402; 84403; 85027

== ENCOUNTER 2020-02-28 20:25 | Observation (INO) | payer OTHER, SELFPAY ==
[2019-12-05 15:31] VITALS: BMI 39.4
[2020-02-28 20:26] VITALS: BP 150/80; PULSE 88; RESP 15; TEMP 36.3; O2SAT 97; BMI 39.1
--- NOTE | 2020-02-28 21:24 | EKG12_ITS ---
Test Reason : DYSRHYTHMIA Blood Pressure : / mmHG Vent. Rate : 063 BPM Atrial Rate : 063 BPM P-R Int : 268 ms QRS Dur : 088 ms QT Int : 384 ms P-R-T Axes : 034 -37 037 degrees QTc Int : 392 ms Sinus rhythm with 1st degree A-V block Left axis deviation Minimal voltage criteria for LVH, may be normal variant Abnormal ECG Confirmed by ELENA CONTI, SUNG ([id number]), makeup editor LANETTE EMMANUEL ([id number]) on 03/02/2020 1:19:27 PM Referred By: VAHID Confirmed By:SUNG PARKER MD
[2020-02-28] MEDS: Aspirin 81 MG TAB.CHEW 324 MG PO (21:28)
[2020-02-28 21:37] VITALS: BP 140/65; PULSE 70; RESP 12; O2SAT 99
--- NOTE | 2020-02-28 22:00 | RAD_ITS ---
STUDY: X-RAY CHEST REASON FOR EXAM: Male, 64 years old. CP WITH INSPIRATION, ALSO SOB WITH EXERTION. HX OF PE TECHNIQUE: Single frontal view of the chest. COMPARISON: 09/10/2018 FINDINGS: There is no new focal consolidation. There are are stable curvilinear opacities within the right mid/lower and left lung base which may reflect atelectasis and/or scarring. Normal size heart. Normal mediastinum and whit. Normal visualized pulmonary arteries. Normal visualized aortic arch and descending thoracic aorta. Normal visualized thoracic spine. Normal visualized ribs, clavicles, and shoulders. There is no demonstrated abnormality of the visualized soft tissue structures of the upper abdomen. RAD/Chest 1 View (Portable) IMPRESSION: No acute cardiopulmonary process. Electronically Signed: Sharona Kramer MD at 22:16 EDT Tel , Service support ,
[2020-02-28 22:05] LABS: Absolute Lymphocyte Count 1.88 X10^3/uL (0.83-4.51); Absolute Neutrophil Count 4.4 X10^3/uL (2.0-7.7); Basophil# 0.03 X10^3/uL; Basophil% 0.4 % (0-1); Eosinophil# 0.03 X10^3/uL; Eosinophils% 0.4 % (0-5); Hematocrit 45.7 % (40-54); Hemoglobin 15.2 g/dL (13.0-16.5); Lymphocyte # 1.88 X10^3/ul (4.0); Lymphocyte % 27.1 % (19-41); Mean Corp Hgb Conc 33.3 g/dL (32-36); Mean Corpuscular Hgb 29.2 pg (27.0-32.0); Mean Corpuscular Volume 87.7 fL (80-94); Monocyte# 0.58 X10^3/uL; Monocyte% 8.3 % (0-10); NRBC Flagged by Analyzer 0 % (0-5); Neutrophil # 4.42 X10^3/uL (2.7-7.7); Neutrophil % 63.7 % (47-70); Platelet Count 170 K/mm3 (150-450); RBC Distribution Width CV 13.3 % (11.6-14.6); RBC Distribution Width SD 42.1 fl (35.1-43.9); Red Blood Count 5.21 M/mm3 (4.6-6.2)
--- NOTE | 2020-02-28 22:05 | ED.VIS.GEN ---
History of Present Illness Chief Complaint: Shortness of Breath Informant: Patient, PCP Onset: Days - Patient reports dyspnea with exertion for past several days with diaphoresis. He does have history of coronary disease. He also has history of pulmonary embolus and discontinued his Xarelto. Matter fact he has history of 2 prior pulmonary embolus. Context: Sudden Onset Timing: Intermittent Quality: Dyspnea on exertion and diaphoresis Location: Not applicable Current Severity: Mild Maximum Severity: Severe Worsened by: Activity Relieved by: Nothing Associated Symptoms: No other symptoms Narrative: Patient is an elderly male with history of coronary disease, he had an NM in 2006 with placement of stent. 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 He reports the dyspnea and dyspnea exertion that started a couple days ago. He reports diaphoresis with exertion. He denies chest pain. He denies pain to his shoulders neck or jaw. He denies nausea, vomiting diarrhea. He denies black or maroon stool. Does have history of peptic ulcers, hiatal hernia and reflux. He states he is compliant with his medication. He denies leg pain other than pain with walking which patient reports is due to spinal stenosis. He denies history of peripheral arterial disease. (Of note patient has no hair on his toes). Patient denies abdominal pain. He reports chronic back pain. He denies history of DVT lower extremity or upper extremity. Prior similar symptoms: Yes Recent Illness/Hospitalization: No - Past Medical History (1) Atherosclerotic heart disease of [place] coronary artery without angina pectoris Status: Chronic Comment: PTCA/stent to LAD 08/29 (2) Claudication Status: Chronic (3) Dyspnea on exertion Status: Chronic (4) Essential hypertension Status: Chronic (5) DEENA (obstructive sleep apnea) Status: Chronic (6) Prostate enlargement Status: Chronic (7) Pure hypercholesterolemia Status: Chronic (8) Testosterone deficiency Status: Chronic Past Medical History - Allergies and Home Meds Allergies/Adverse Reactions: Allergies Sulfa (Sulfonamide Antibiotics) Allergy (Verified 02/28/20 20:28) Unknown Primary Care Physician: Jagjit Myers MD [Primary Care Provider] - Prior records reviewed: Yes Surgical History: angioplasty Lives: Alone Smoking Status: Former smoker Alcohol: None Drugs: None - Family History Maternal Family History: Family History (Last Reviewed 07/23/19 @ 09:27 by Imelda Britton) Mother CAD (coronary artery disease) Hypertension Hx of CABG Father Hypertension Myocardial infarction Grandfather Myocardial infarction Grandmother Cancer Grandfather CAD (coronary artery disease) Family History: Reports: Heart Disease Paternal Family History: Family History (Last Reviewed 07/23/19 @ 09:27 by Imelda Britton) Mother CAD (coronary artery disease) Hypertension Hx of CABG Father Hypertension Myocardial infarction Grandfather Myocardial infarction Grandmother Cancer Grandfather CAD (coronary artery disease) Family History: Reports: Heart Disease Review of Systems General: Reports: Malaise. Denies: Chills, Fever, Sweats Eyes: Denies: Visual changes - bilaterally, Blurred Vision - bilaterally ENT: Denies: Rhinorrhea, Sore throat Cardiovascular: Denies: Chest pain, Palpitations Respiratory: Reports: Dyspnea, Dyspnea on exertion. Denies: Cough, Sputum, Orthopnea, Paroxysmal nocturnal dyspnea Gastrointestinal: Denies: Abdominal pain, Nausea, Vomiting, Diarrhea, Melena, Hematochezia Genitourinary: Denies: Dysuria, Hematuria, Frequency Musculoskeletal: Reports: Back pain. Denies: Myalgias, Arthralgias, Neck pain, Swelling, Extremity Pain, -, - Skin: Denies: Rash, Wounds Neurological: Denies: Headache, Weakness, Numbness Endocrine: Denies: Polyuria, Polydipsia Hematologic: Denies: Easy bruising, Easy bleeding Physical Exam Vital Signs/Narrative: Vital Signs Temp Pulse Resp BP Pulse Ox 02/28/20 21:37 70 12 140/65 H 99 02/28/20 20:26 97.4 F L 88 15 150/80 H 97 Inital Vital Signs reviewed: Yes General: Well nourished, Well developed, Obese Head: Normocephalic, Atraumatic Eyes: Perrl, EOMI. Negative for: Pale conjunctiva, Scleral icterus Neck: Supple, Nontender, No lymphadenopathy, No JVD Cardiovascular: Regular rate, Regular rhythm, No murmurs, Normal S1, Normal S2 Respiratory: No distress, CTA bilaterally, Chest nontender Abdomen: Soft, Nontender, Nondistended, Normal bowel sounds Rectal: Deferred Back: Nontender, Normal Inspection. Negative for: CVA tenderness Extremities: Nontender, No edema, - - There is no asymmetry, swelling, discoloration, leg vein distention, palpable cords or tenderness along the distribution of the deep venous system. Absent of hair on toes Skin: Normal color, No rash, No Trauma. Negative for: Cyanosis, Diaphoresis, Jaundice Neurological: Alert, Oriented x3, Cranial nerves II-XII grossly intact, Normal Strength, Normal Sensation Psychological: Normal affect Diagnostic/Tx/Re-eval Impressions Chest X-Ray 02/28/20 22:00 IMPRESSION: No acute cardiopulmonary process. Electronically Signed: Sharona Kramer MD at 22:16 EDT Tel , Service support , 02/28/20 22:00 Chest 1 View (Portable) [RAD] Stat Laboratory Results 02/28/20 02/28/20 02/28/20 21:30 21:30 21:30 WBC 7.0 RBC 5.21 Hgb 15.2 Hct 45.7 MCV 87.7 MCH 29.2 MCHC 33.3 RDW Std Deviation 42.1 RDW Coeff of [place]ito 13.3 Plt Count 170 MPV 11.0 Immature Gran % (Auto) 0.100 Neut % (Auto) 63.7 Lymph % (Auto) 27.1 [place] % (Auto) 8.3 Eos % (Auto) 0.4 Baso % (Auto) 0.4 Absolute Neuts (auto) 4.4 Absolute Lymphs (auto) 1.88 Nucleated RBC % 0 D-Dimer Quant (PE/DVT) 0.43 Sodium 143 Potassium 3.7 Chloride 111 H Carbon Dioxide 27.0 Anion Gap 5 BUN 14 Creatinine 1.15 Estim Creat Clear Calc 83.93 Est GFR (MDRD) Af Amer 83 Est GFR (MDRD) Non-Af 68 BUN/Creatinine Ratio 12.2 Glucose 122 H Calcium 8.8 Troponin I < 0.015 D-dimer is normal. Troponin is normal. Since patient has symptoms of claudication, which he attributes to spinal stenosis however this may represent claudication since there is evidence of peripheral arterial disease based on examination of lower extremities. The dyspnea on exertion diaphoresis with exertion may be due to cardiac ischemia since d-dimer is normal. We will discuss case with patient and recommend cardiac work-up in-house. Patient states he needs to go home with take care of the animals . Patient was informed he may do that; however, he will sign out AGAINST MEDICAL ADVICE he was explained risk benefits. He was informed this may result in heart attack, more invasive treatment, inability to perform 1 or more activities of daily living, life support, , semi-vegetative vegetative state, seizure disorder, mental, physical or emotional disability. He understands. He will sign AMA form. Plan is for him to return after he takes care of his animals . The hospitalist made aware. When he does present back to the hospital will call hospitalist for assignment to PCU for cardiac work-up. - Medical Decision Making Dyspnea with exertion may represent, cardiac ischemia, pulmonary embolus, pneumonia, congestive heart failure or other cause. Work-up was undertaken to evaluate patient's symptoms. ED Disposition - Plan for ED Patient: Disposition: Against Medical Advice Diagnosis: Dyspnea on exertion, Dyspnea anginal equivalent, Atherosclerotic heart disease of [place] coronary artery without angina pectoris, Essential hypertension, Obesity, Pure hypercholesterolemia Referrals: Jagjit Myers MD [Primary Care Provider] -
[2020-02-28 22:11] LABS: D-Dimer Quantitative (DVT/PE) 0.43 FEU/ug/m (0.27-0.49)
[2020-02-28 22:14] LABS: Anion Gap 5 (5-15); BUN 14 mg/dL (7-18); BUN/Creat Ratio 12.2 RATIO (10-20); Calcium,Total 8.8 mg/dL (8.5-10.1); Chloride 111 mmol/L (98-107); Creatinine, Serum 1.15 mg/dL (0.70-1.30); EST Glomerular Filtration Rate 68 mL/min (>60); Est Glom Filt Rate - Afr Amer 83 mL/min (>60); Estimated Creatinine Clearance 83.93 ml/min; Glucose 122 mg/dL (74-106); Potassium 3.7 mmol/L (3.5-5.1); Sodium Level 143 mmol/L (136-145)
--- NOTE | 2020-02-28 22:45 | ED.DCSUM_ITS ---
- ER Visit Summary Date of Service: 02/28/20 Chief Complaint: [] History of Present Illness: The patient is a 64 M [] Physical Examination: [] Test Results: [] Emergency Department Course and Treatment: [] Treatment Plan: [] Disposition: [] Impression: [] This note was generated with Azuki (Vozero/Gengibre) dictation software. It may contain incorrect words, spelling, and punctuation that were not noted in review of the chart prior to signing ED Disposition - Plan for ED Patient: Disposition: Against Medical Advice Diagnosis: Dyspnea on exertion, Dyspnea anginal equivalent, Atherosclerotic heart disease of [place] coronary artery without angina pectoris, Essential hypertension, Obesity, Pure hypercholesterolemia Instructions: ED Dyspnea, ED Heart Disease Risk Factors Referrals: Jagjit Myers MD [Primary Care Provider] -
[2020-02-28 23:00] VITALS: BP 132/63; PULSE 62; RESP 14; O2SAT 98
[2020-02-29] VITALS (8 sets, daily range): BP systolic 139–149; BP diastolic 71–84; PULSE 59–75; RESP 16–17; TEMP 36.5–36.8; O2SAT 95–100; BMI 39.1
--- NOTE | 2020-02-29 00:23 | HP.PCM_ITS ---
Problem List (1) Chest pain Status: Acute Qualifiers: Chest pain type: unspecified Qualified Code(s): R07.9 - Chest pain, unspecified (2) History of TIA (transient ischemic attack) Status: Chronic (3) Former tobacco use Status: Chronic (4) GERD (gastroesophageal reflux disease) Status: Chronic Qualifiers: Esophagitis presence: esophagitis presence not specified Qualified Code(s): K21.9 - Gastro-esophageal reflux disease without esophagitis (5) BPH (benign prostatic hyperplasia) Status: Chronic Qualifiers: Lower urinary tract symptom presence: unspecified whether lower urinary tract symptoms present Qualified Code(s): N40.0 - Benign prostatic hyperplasia without lower urinary tract symptoms (6) Pure hypercholesterolemia Status: Chronic (7) Presence of stent in coronary artery Status: Chronic Comment: PTCA/stent to LAD 08/29 (8) Essential hypertension Status: Chronic (9) Atherosclerotic heart disease of [place] coronary artery without angina pectoris Status: Chronic Qualifiers: [place] vs. transplanted heart: [place] heart Qualified Code(s): I25.10 - Atherosclerotic heart disease of [place] coronary artery without angina pectoris Comment: PTCA/stent to LAD 08/29 (10) DEENA (obstructive sleep apnea) Status: Chronic (11) Obesity Status: Chronic Qualifiers: Obesity type: due to excess calories Obesity classification: adult class 2 (BMI 35 - 39.9) Serious obesity comorbidity presence: unspecified whether serious comorbidity present Body mass index: BMI 39.0-39.9 Qualified Code(s): E66.09 - Other obesity due to excess calories; Z68.39 - Body mass index (BMI) 39.0-39.9, adult (12) History of pulmonary embolism Status: Chronic Comment: History of provoked embolism with hx PICC and travel per report. History of Present Illness Date of Admission: 02/29/20 Chief Complaint: Chest pain, exertional dyspnea The patient is a 64 y/o M w/ PMHx: HTN, HLD, BPH, Hx TIA, DEENA, CAD s/p PCI LAD 2012, GERD, Fibromyalgia, Obesity, Hx PE with recent discontinuation of his anticoagulation 09/2019 who presents to the [facility] ED on with history of onset exertional dyspnea and chest pain noting midsternal chest tightness with exertion with difficulty rating it but notes it severe enough that he is required to cough and pause before he can feel like he can catch his breath with diaphoresis and recent nausea but no emesis ongoing for the last 3 days with spousal encouragement to contact his PCP with referral to the ED today. He states he had a similar episode a year prior and had cardiac catheterization at that time which was unremarkable. He denies any recent fever, chills, abdominal cramping pain, diarrhea, alteration in sense of taste or smell, productive cough. He does note that his anticoagulant therapy was stopped at the end of September work-up in the ED included T 97.4, heart rate 88, BP 150/80, respiratory rate 15, 97% on room air, CBC unremarkable, D-dimer unremarkable, BMP w/ glucose 122 otherwise not market appearing, troponin less than 0.015, EKG w/ sinus rhythm with no acute evidence of ischemia, CXR w/ no acute cardiopulmonary findings. He was encouraged to stay and be admitted however he noted that he had to go home and take care of his animals as his was out of town in [place], left yesterday but intended to return to the ED for evaluation which he did and hospitalist was called upon his return. Past Medical History Past Medical History (Chronic Problems): Chronic Problems (Last Updated 07/23/19 @ 09:28 by Imelda Britton) History of TIA (transient ischemic attack) (Chronic) Former tobacco use (Chronic) GERD (gastroesophageal reflux disease) (Chronic) BPH (benign prostatic hyperplasia) (Chronic) History of pulmonary embolism (Chronic) History of provoked embolism with hx PICC and travel per report. Pure hypercholesterolemia (Chronic) Prostate enlargement (Chronic) Dyspnea on exertion (Chronic) Claudication (Chronic) Presence of stent in coronary artery (Chronic ~08/2012) PTCA/stent to LAD 08/29 Essential hypertension (Chronic) Atherosclerotic heart disease of [place] coronary artery without angina pectoris (Chronic) PTCA/stent to LAD 08/29 Abnormal myocardial perfusion study (Chronic) Abnormal stress test (Chronic) DEENA (obstructive sleep apnea) (Chronic) Testosterone deficiency (Chronic) Obesity (Chronic) Medical History: Medical History (Last Updated 07/23/19 @ 09:28 by Imelda Britton) Pure hypercholesterolemia (Chronic) E78.00 Prostate enlargement (Chronic) N40.0 Dyspnea on exertion (Chronic) R06.09 Claudication (Chronic) I73.9 Essential hypertension (Chronic) I10 Atherosclerotic heart disease of [place] coronary artery without angina pectoris (Chronic) I25.10 PTCA/stent to LAD 08/29 Abnormal myocardial perfusion study (Chronic) R94.39 Abnormal stress test (Chronic) R94.39 DEENA (obstructive sleep apnea) (Chronic) G47.33 Testosterone deficiency (Chronic) Obesity (Chronic) E66.9 Rectal bleeding K62.5 TIA (transient ischemic attack) G45.9 BPH (benign prostatic hyperplasia) N40.0 Fibromyalgia M79.7 GERD (gastroesophageal reflux disease) K21.9 Acute pyelonephritis N10 Confusion R41.0 Pulmonary embolism I26.99 UTI (urinary tract infection) N39.0 H/O percutaneous transluminal coronary angioplasty (Inactive) Z98.61 HTN (hypertension) (Inactive) I10 Unstable angina I20.0 Allergies Sulfa (Sulfonamide Antibiotics) Allergy (Verified 02/28/20 20:28) Unknown Home Medications: Ambulatory Orders Medication Instructions Recorded Multivitamins,Ther W-Minerals 1 tab PO DAILY 12/10/13 [Multivitamin With Minerals ([facility])] Allopurinol 100 mg PO DAILY 07/23/18 amlodipine 5 mg tablet 5 mg PO DAILY tab 11/27/18 testosterone cypionate 100 mg/mL 100 mg IM QWEEK ml 11/27/18 intramuscular oil Albuterol Inhaler [Ventolin Hfa] 1 - 2 puff INHALATION Q6H PRN PRN 07/08/19 Losartan Potassium [Cozaar] 25 mg PO DAILY 07/08/19 Ibuprofen 600 mg PO Q6H PRN PRN #20 tab 07/10/19 Potassium Chloride [K-Dur] 20 meq PO DAILY 07/10/19 atorvastatin 20 mg tablet 20 mg PO QHS #30 tab 07/10/19 duloxetine 30 mg capsule,delayed 40 mg PO DAILY cap 12/05/19 release Surgical History: Surgical History (Last Updated 07/23/19 @ 09:29 by Imelda Britton) Presence of stent in coronary artery (Chronic) Onset Date: ~08/2012 Z95.5 PTCA/stent to LAD 08/29 History of arthroscopy of right knee Z98.890 History of laparoscopic cholecystectomy Z90.49 History of transurethral resection of prostate Z98.890, Z90.79 History of PTCA Onset Date: ~08/2012 Z98.61 PTCA/stent to LAD History of left heart catheterization (LHC) Z98.890 01/2007, 12/2012, 11/2013 Presence of coronary angioplasty implant and graft Onset Date: ~08/2012 Z95.5 PTCA/stent to LAD 08/29 History of repair of rotator cuff Z98.890 History of tonsillectomy and adenoidectomy Z98.890 Surgical History: angioplasty, - - PCI x 1 2012, tonsillectomy, right shoulder arthroscopic surgery, right knee arthroscopic surgery, cholecystectomy. Psychiatric History: No pertinent psych hx Lives: Spouse/ Significant Other Smoking Status: Former smoker - Patient quit cigarette tobacco usage [employer] 20 to 30 years prior with prior to this 2 pack/day since he been a teenager. Tobacco Use: Non-smoker Alcohol: Occasional Drugs: None - *Family History Maternal Family History: Family History (Last Reviewed 07/23/19 @ 09:27 by Imelda Britton) Mother CAD (coronary artery disease) Hypertension Hx of CABG Father Hypertension Myocardial infarction Grandfather Myocardial infarction Grandmother Cancer Grandfather CAD (coronary artery disease) History Items: Heart Disease Paternal Family History: Family History (Last Reviewed 07/23/19 @ 09:27 by Imelda Britton) Mother CAD (coronary artery disease) Hypertension Hx of CABG Father Hypertension Myocardial infarction Grandfather Myocardial infarction Grandmother Cancer Grandfather CAD (coronary artery disease) History Items: Heart Disease Review of Systems Constitutional: Reports: Malaise, Weakness, Fatigue. Denies: Anorexia, Chills, Fever, Weight Change HEENT: Denies: Head Aches, Nasal Congestion, Sinus Congestion, Sinus Drainage, Sore Throat Cardiovascular: Reports: Chest Pain, Chest Tightness. Denies: Chest Pressure, Heaviness, Light Headedness, Orthopnea, Palpitations, Syncope Respiratory: Reports: Pleuritic Pain, Shortness of breath upon exertion. Denies: Cough, Shortness of breath at rest, Sputum production, Wheezing Gastrointestinal: Denies: Abdominal Pain, Nausea, Vomiting Genitourinary: Denies: Dysuria Musculoskeletal: Reports: Back Pain. Denies: Joint Pain, Joint Tenderness Skin: Denies: Rash, Wounds Neurological: Denies: Numbness, Tingling, Focal weakness Psychiatric: Denies: Anxiety, Depression, Homicidal Ideations, Suicidal Ideations Hematologic/ Lymphatic: Denies: Easy Bruising, Easy Bleeding VTE Information - Inpt Only VTE Present on Admission: No VTE Mechan Device Prophylaxis: SCD's VTE Pharm Prophylaxis ordered?: Yes Subjective: Seated upright in the ED bed with no acute distress, no current chest discomfort reported. Objective: Physical Examination: General: awake, alert, oriented x 3 and cooperative, seated upright in the ED bed in no apparent distress, denies any current chest tightness. Skin: normal color, turgor, no icterus, cyanosis. HEENT: AT/NC, EOMI, PERRLA, MMM, no carotid bruits or JVD noted. Lungs: CTA bilaterally, moderate effort, moderate decrease BL bases, no rales, ronchi or wheezing. Heart: Regular rate and rhythm; no gallop, rub audible. Abdomen: soft, obese, NTTP, ND, normal BS, no HSM however habitus makes examination difficult. Extremities: no cyanosis, clubbing, or edema. Neurological: patient awake, alert, oriented x 3; cognitive function intact; pupils equally reactive to light and accomodation; cranial nerves II-XII grossly normal, moving all 4 extremities, no focal deficits, strength mildly global decreased secondary to acute presentation, worsens with activity attempts. Psychiatric: affect appears mildly fatigued otherwise normal, no acute evidence of depressive or anxiety feelings. - Physical Exam Vitals/I&O's: Vital Signs Temp Pulse Resp BP Pulse Ox 97.4 F L 62 14 132/63 H 98 02/28/20 20:26 02/28/20 23:00 02/28/20 23:00 02/28/20 23:00 02/28/20 23:00 Oxygen Delivery Method Room Air Weight: 330 lb Body Mass Index (BMI) 39.1 Laboratory Results 02/28/20 21:30: WBC 7.0, RBC 5.21, Hgb 15.2, Hct 45.7, MCV 87.7, MCH 29.2, MCHC 33.3, RDW Std Deviation 42.1, RDW Coeff of [place] 13.3, Plt Count 170, MPV 11.0, Immature Gran % (Auto) 0.100, Neut % (Auto) 63.7, Lymph % (Auto) 27.1, [place] % (Auto) 8.3, Eos % (Auto) 0.4, Baso % (Auto) 0.4, Absolute Neuts (auto) 4.4, Absolute Lymphs (auto) 1.88, Nucleated RBC % 0 02/28/20 21:30: D-Dimer Quant (PE/DVT) 0.43 02/28/20 21:30: Sodium 143, Potassium 3.7, Chloride 111 H, Carbon Dioxide 27.0, Anion Gap 5, BUN 14, Creatinine 1.15, Estim Creat Clear Calc 83.93, Est GFR (MDRD) Af Amer 83, Est GFR (MDRD) Non-Af 68, BUN/Creatinine Ratio 12.2, Glucose 122 H, Calcium 8.8, Troponin I < 0.015 Assessment/Plan All Active Problems (Last Updated 07/23/19 @ 09:28 by Imelda Britton) Chest pain (Acute) Fever (Resolved) Fever and chills (Resolved) The patient is a 64 y/o M w/ PMHx: HTN, HLD, BPH, Hx TIA, DEENA, CAD s/p PCI LAD 2012, GERD, Fibromyalgia, Obesity, Hx PE with recent discontinuation of his anticoagulation 09/2019 who presents to the [facility] ED on with history of onset exertional dyspnea and chest pain noting midsternal chest tightness with exertion. 1. Chest Pain: EKG in ED with sinus rhythm with no acute evidence of ischemia, CXR w/ no acute cardiopulmonary findings, initial trop normal x1, d-dimer unremarkable. Will admit to PCU, place on a monitored bed to assure no acute myocardial infarction with serial cardiac enzymes and EKGs. Patient with chronic back discomfort issues therefore if repeat serial cardiac enzymes and EKGs remain unremarkable pursue a.m. cardiac nuclear stress testing. ASA, NG, morphine. FLP in A. 2. History of prior pulmonary embolism: Noted to be provoked from traveling and possibly a PICC line insertion, discontinued his anticoagulant therapy. D-dimer unremarkable. 3. CAD: Status post PCI LAD 2012, continue aspirin, statin, losartan regimen, not on beta-jacob therapy per review of regimen and he confirms he is not been on these agents but cannot give a reason as to why. 4. Hypertension: Continue home regimen including Norvasc, losartan with hold parameters, PRN hydralazine. 5. Hyperlipidemia: Continue home statin regimen. 6. History of TIA: We will continue patient aspirin, statin, hypertensive regimen. 7. DEENA: We will continue CPAP nightly. 8. GERD: We will maintain on famotidine. 9. Former tobacco use: Encourage continued tobacco cessation. 10. BPH: Not on any regimen, s/p TURP 07/10/19. 11. DVT prophylaxis: SCDs, lovenox. OBSV E&M: 17244 Initial observation care L3
--- NOTE | 2020-02-29 01:29 | EKG12_ITS ---
Test Reason : ADM EKG Blood Pressure : / mmHG Vent. Rate : 061 BPM Atrial Rate : 061 BPM P-R Int : 254 ms QRS Dur : 080 ms QT Int : 408 ms P-R-T Axes : 081 -36 037 degrees QTc Int : 410 ms Sinus rhythm with 1st degree A-V block with occasional Premature ventricular complexes Left axis deviation Abnormal ECG When compared with ECG of 16-MAR-2019 16:40, Premature ventricular complexes are now Present Confirmed by ELENA CONTI, SUNG ([id number]), proposal editor LATISHA HECK ([id number]) on 03/04/2020 11:42:23 AM Referred By: SAM Confirmed By:SUNG PARKER MD
[2020-02-29 01:39] LABS: Magnesium 2.4 mg/dL (1.6-2.6)
[2020-02-29] MEDS: 0.9% Normal Saline 1,000 ML 100 ML IV (01:39)
[2020-02-29] MEDS: 0.9% Saline Lock 10 ML Syringe IV (01:54)
[2020-02-29 04:37] LABS: Absolute Lymphocyte Count 1.66 X10^3/uL (0.83-4.51); Absolute Neutrophil Count 3.2 X10^3/uL (2.0-7.7); Basophil# 0.02 X10^3/uL; Basophil% 0.4 % (0-1); Eosinophil# 0.06 X10^3/uL; Eosinophils% 1.1 % (0-5); Hematocrit 41.1 % (40-54); Hemoglobin 13.6 g/dL (13.0-16.5); Lymphocyte # 1.66 X10^3/ul (4.0); Lymphocyte % 30.2 % (19-41); Mean Corp Hgb Conc 33.1 g/dL (32-36); Mean Corpuscular Hgb 29.2 pg (27.0-32.0); Mean Corpuscular Volume 88.4 fL (80-94); Mean Platelet Vol. 10.8 fl (6.2-12.0); Monocyte# 0.56 X10^3/uL; Monocyte% 10.2 % (0-10); NRBC Flagged by Analyzer 0 % (0-5); Neutrophil # 3.19 X10^3/uL (2.7-7.7); Neutrophil % 57.9 % (47-70); Platelet Count 141 K/mm3 (150-450); RBC Distribution Width CV 13.3 % (11.6-14.6); RBC Distribution Width SD 42.9 fl (35.1-43.9); Red Blood Count 4.65 M/mm3 (4.6-6.2); White Blood Count 5.5 K/mm3 (4.4-11.0)
[2020-02-29 05:13] LABS: ALB/GLOB Ratio 1.2 RATIO (0.9-2.4); AST(SGOT) 19 U/L (15-37); Alanine Aminotransfer ALT/SGPT 41 U/L (16-61); Albumin, Serum 3.4 g/dL (3.2-5.0); Alkaline Phosphatase 80 U/L (45-117); Anion Gap 4 (5-15); BUN 16 mg/dL (7-18); BUN/Creat Ratio 14.5 RATIO (10-20); Calcium,Total 8.1 mg/dL (8.5-10.1); Chloride 107 mmol/L (98-107); Cholesterol 108 mg/dL (200); EST Glomerular Filtration Rate 72 mL/min (>60); Est Glom Filt Rate - Afr Amer 87 mL/min (>60); Estimated Creatinine Clearance 87.75 ml/min; Globulin 2.8 g/dL (2.2-4.2); Glucose 118 mg/dL (74-106); High Density Lipoprotein 24 mg/dL; Potassium 3.8 mmol/L (3.5-5.1); Protein, Total 6.2 g/dL (6.4-8.2); Sodium Level 141 mmol/L (136-145); Triglycerides 274 mg/dL; Very Low Density Lipoprotein 55 mg/dL (5-40)
[2020-02-29] MEDS: Aspirin E.C. 81 MG Tablet PO (06:43)
[2020-02-29] MEDS: Losartan Potassium 25 MG Tablet PO (06:43)
[2020-02-29] MEDS: DULoxetine Hcl 20 MG Capsule 40 MG PO (10:05)
[2020-02-29] MEDS: Allopurinol 100 MG Tablet PO (10:05)
[2020-02-29] MEDS: Famotidine 20 MG Tablet PO (10:05)
--- NOTE | 2020-02-29 10:20 | STRESSREP ---
Stress Test Report Pharmacologic myocardial perfusion stress test. 64-year-old man with a history of previous coronary artery disease. Stress protocol: Resting EKG demonstrates normal sinus rhythm with a rate of 57 bpm normal intervals are noted resting blood pressure is 140/80 mmHg. 0.4 mg of regadenoson was infused per usual protocol. Continuous EKG monitoring was performed. The maximum heart rate was 80 bpm. At rest there were no ST or T wave changes noted to suggest abnormal flow reserve. At peak infusion nonspecific ST-T wave changes were noted with no meet the criteria for ischemia. No clinical angina was noted. Myocardial perfusion protocol. 15.0 mCi of technetium 99m sestamibi was injected at rest. 0.4 mg of regadenoson was infused per usual protocol. At peak infusion 45.0 mCi of technetium 99m sestamibi was injected stress images were obtained stress and rest images were reconstructed and compared in the short axis vertical long horizontal long axis. Gated images were also obtained P Perfusion SPECT analysis: Review of the stress images demonstrate normal uptake of tracer noted in all areas of the myocardium the resting images similar demonstrate normal uptake of tracer noted in all areas of the myocardium. No reversibility is noted to suggest ischemia no previous infarct is noted. Gated SPECT analysis: The gated ejection fraction is 66%. Conclusion: Normal pharmacologic myocardial perfusion stress test. Preserved ejection fraction.
--- NOTE | 2020-02-29 11:20 | DCINST_ITS ---
- Discharge Diagnoses Current Active Problems: Current Active and Chronic Problems (Last Updated 07/23/19 @ 09:28 by Imelda Britton) Pure hypercholesterolemia (Chronic) Dyspnea on exertion (Chronic) Essential hypertension (Chronic) Atherosclerotic heart disease of [place] coronary artery without angina pectoris (Chronic) PTCA/stent to LAD 08/29 Obesity (Chronic) You will use the following diet at home:: Cardiac Your food should be the consistency of: Regular Your liquids should be the consistency of: Regular/Thin Discharge Activity: Return to Normal Activity Weight Bearing Status: Weight bearing as tolerated Call your doctor if you observe: Shortness of breath, Dizziness, Fainting spells, Swelling in the ankles, Chest pain, Increased palpitations (irregular heartbeat) Instructions: ED Dyspnea, ED Heart Disease Risk Factors Allergies/Adverse Reactions: Allergies Sulfa (Sulfonamide Antibiotics) Allergy (Verified 02/28/20 20:28) Unknown Medications to take at Discharge Multivitamins,Ther W-Minerals [Multivitamin With Minerals ([facility])] 1 tab PO DAILY 12/10/13 Allopurinol 100 mg PO DAILY 07/23/18 amlodipine 5 mg tablet 5 mg PO DAILY tab 11/27/18 testosterone cypionate 100 mg/mL intramuscular oil 100 mg IM QWEEK ml 11/27/18 Albuterol Inhaler [Ventolin Hfa] 1 - 2 puff INHALATION Q6H PRN PRN 07/08/19 Losartan Potassium [Cozaar] 25 mg PO DAILY 07/08/19 Ibuprofen 600 mg PO Q6H PRN PRN #20 tab 07/10/19 Potassium Chloride [K-Dur] 20 meq PO DAILY 07/10/19 atorvastatin 20 mg tablet 20 mg PO QHS #30 tab 07/10/19 duloxetine 30 mg capsule,delayed release 40 mg PO DAILY cap 12/05/19 Primary Care Physician: Jagjit Myers MD [Primary Care Provider] - Please follow up with your Primary Care Physician in: 1-2 weeks Test Results: Test results from this visit will be discussed in further detail at your follow- up appointment, if applicable. Proposed Discharge Date: 02/29/20
--- NOTE | 2020-02-29 11:23 | PCM.DC.SUM ---
Discharge Date and Diagnosis Date of Admission: 02/29/20 Date of Discharge: 02/29/20 - Primary Discharge Diagnosis Acute Problems: chest pain - Secondary Discharge Diagnosis Chronic Problems: Chronic Problems (Last Updated 07/23/19 @ 09:28 by Imelda Britton) History of TIA (transient ischemic attack) (Chronic) Former tobacco use (Chronic) GERD (gastroesophageal reflux disease) (Chronic) BPH (benign prostatic hyperplasia) (Chronic) History of pulmonary embolism (Chronic) History of provoked embolism with hx PICC and travel per report. Pure hypercholesterolemia (Chronic) Prostate enlargement (Chronic) Dyspnea on exertion (Chronic) Claudication (Chronic) Presence of stent in coronary artery (Chronic ~08/2012) PTCA/stent to LAD 08/29 Essential hypertension (Chronic) Atherosclerotic heart disease of [place] coronary artery without angina pectoris (Chronic) PTCA/stent to LAD 08/29 Abnormal myocardial perfusion study (Chronic) Abnormal stress test (Chronic) DEENA (obstructive sleep apnea) (Chronic) Testosterone deficiency (Chronic) Obesity (Chronic) Hospital Course and Treatment Imaging Results: 02/29/20 05:55 Nuclear Stress Test - Chemical [NM] AM (NON MEDS) Operations: None Procedures: None Summary of Care Provided: The patient is a 64 year old M with an extensive PMH as outlined who was admitted via the ED on 02/29/2020 with a complaint of exertional dyspnea and chest pain. Chest pain was worsened by exertion, and relieved by stress. He also complained of some shortness of breath. Patient had a history of PE and had been on anticoagulation until September 2019. He got the PE in 2017 and states it was after he had sepsis and had a PICC line inserted for long-term antibiotics. PICC line was subsequently removed and he developed PEs afterwards. Troponins x 3 were negative, and EKG showed no acute ST changes. D dimer was negative. He had similar chest pain last year and had a cardiac catheterisation which was negative for any clots. D dimer done was negative. He was admitted to be managed for chest pain to r/o ACS. He had a stress test on 02/29/2020 which was negative for any ischemia. He remained stable, and was discharged home on 02/29/2020. He is to follow up with his PCP in one week. Patient seen and examined. He had no complaints. Chest pain had resolved, and shortness of breath had also resolved. Review of systems was otherwise negative. He has remained stable. Labs and vitals reviewed. Home medications reviewed and reconciled. - Physical Exam Vitals/I&O's: Vital Signs Temp Pulse Resp BP Pulse Ox 98.1 F 75 16 146/84 H 95 02/29/20 06:41 02/29/20 07:00 02/29/20 06:41 02/29/20 06:41 02/29/20 07:56 Oxygen Delivery Method Room Air Weight: 329 lb 12.984 oz Body Mass Index (BMI) 39.1 Intake and Output for Last 24 Hours 02/27/20 02/28/20 02/29/20 23:59 23:59 23:59 Intake Total 560 / 560 Balance 560 / 560 General: Alert, Oriented x3, Cooperative, No apparent distress HEENT: Atraumatic, PERRLA, EOMI, Normocephalic Oral: Moist Mucosa Neck: Supple, No JVD, Negative Carotid Bruits Lungs: Clear to auscultation, Normal air movement, No rhonchi, No wheeze, No rales Cardiovascular: Regular rate, Regular Rhythm, Normal S1, Normal S2, No murmurs Abdomen: Bowel Sounds Present, Soft, Non Tender, Non-Distended, No Hepato-splenomegaly Extremities: No clubbing, No cyanosis, No edema, Capillary Refill Less than 3 Seconds Skin: No rashes, No breakdown Musculoskeletal: No Tenderness to Palpation of Joints or Extremities Lymphatic: No Cervical, Supraclavicular, or Inguinal Adenopathy Neurological: Cranial nerves II-XII grossly intact, Neuro grossly intact, Motor Exam 5/5 strength throughout Psych/Mental Status: Normal Affect, Appropriate, Alert and oriented to time, place, person, mood and affect Laboratory Results 02/28/20 21:30: WBC 7.0, RBC 5.21, Hgb 15.2, Hct 45.7, MCV 87.7, MCH 29.2, MCHC 33.3, RDW Std Deviation 42.1, RDW Coeff of Lito 13.3, Plt Count 170, MPV 11.0, Immature Gran % (Auto) 0.100, Neut % (Auto) 63.7, Lymph % (Auto) 27.1, Cameron % (Auto) 8.3, Eos % (Auto) 0.4, Baso % (Auto) 0.4, Absolute Neuts (auto) 4.4, Absolute Lymphs (auto) 1.88, Nucleated RBC % 0 02/28/20 21:30: D-Dimer Quant (PE/DVT) 0.43 02/28/20 21:30: Sodium 143, Potassium 3.7, Chloride 111 H, Carbon Dioxide 27.0, Anion Gap 5, BUN 14, Creatinine 1.15, Estim Creat Clear Calc 83.93, Est GFR (MDRD) Af Amer 83, Est GFR (MDRD) Non-Af 68, BUN/Creatinine Ratio 12.2, Glucose 122 H, Calcium 8.8, Troponin I < 0.015 02/28/20 21:30: Magnesium 2.4 02/29/20 01:41: Troponin I < 0.015 02/29/20 04:26: WBC 5.5, RBC 4.65, Hgb 13.6, Hct 41.1, MCV 88.4, MCH 29.2, MCHC 33.1, RDW Std Deviation 42.9, RDW Coeff of Lito 13.3, Plt Count 141 L, MPV 10.8, Immature Gran % (Auto) 0.200, Neut % (Auto) 57.9, Lymph % (Auto) 30.2, Cameron % (Auto) 10.2 H, Eos % (Auto) 1.1, Baso % (Auto) 0.4, Absolute Neuts (auto) 3.2, Absolute Lymphs (auto) 1.66, Nucleated RBC % 0 02/29/20 04:26: Sodium 141, Potassium 3.8, Chloride 107, Carbon Dioxide 30.0, Anion Gap 4 L, BUN 16, Creatinine 1.10, Estim Creat Clear Calc 87.75, Est GFR (MDRD) Af Amer 87, Est GFR (MDRD) Non-Af 72, BUN/Creatinine Ratio 14.5, Glucose 118 H, Calcium 8.1 L, Total Bilirubin 0.50, AST 19, ALT 41, Alkaline Phosphatase 80, Total Protein 6.2 L, Albumin 3.4, Globulin 2.8, Albumin/Globulin Ratio 1.2, Triglycerides 274 H, Cholesterol 108, LDL Cholesterol 29, VLDL Cholesterol 55 H, HDL Cholesterol 24 L 02/29/20 04:26: Troponin I < 0.015 02/29/20 09:29: Troponin I < 0.015 Diagnostic Data Chest X-Ray 02/28/20 22:00 IMPRESSION: No acute cardiopulmonary process. Electronically Signed: Sharona Kramer MD at 22:16 EDT Tel , Service support , Current Medications Acetaminophen (Tylenol) 650 mg PO Q6H PRN PRN PRN Reason: Pain Score 1-10/Temp > 100.7 F Al Hydroxide/Mg Hydroxide (Mylanta Ii) 30 ml PO Q6H PRN PRN PRN Reason: Gastric Burning Albuterol Sulfate (Ventolin Aerosols) 2.5 mg INHALATION Q2H PRN PRN PRN Reason: Dyspnea, wheezing Allopurinol (Zyloprim) 100 mg PO DAILY [facility] Last Admin: 02/29/20 10:05 Dose: 100 mg Documented by: Amlodipine Besylate (Norvasc) 5 mg PO DAILY [facility] Aspirin (Ecotrin) 81 mg PO DAILY@0800 [facility] Last Admin: 02/29/20 06:43 Dose: 81 mg Documented by: Atorvastatin Calcium (Lipitor) 20 mg PO QHS [facility] Duloxetine HCl (Cymbalta) 40 mg PO DAILY [facility] Last Admin: 02/29/20 10:05 Dose: 40 mg Documented by: Enoxaparin Sodium (Lovenox) 40 mg SC DAILY [facility] Famotidine (Pepcid) 20 mg PO BID [facility] Last Admin: 02/29/20 10:05 Dose: 20 mg Documented by: Guaifenesin (Robitussin) 20 ml PO Q4H PRN PRN PRN Reason: COUGH Hydralazine HCl (Apresoline Iv) 10 mg IV Q4H PRN PRN PRN Reason: SBP > 160 Sodium Chloride () 1,000 mls @ 100 mls/hr IV .Q10H [facility] Last Infusion: 02/29/20 10:05 Dose: 100 mls/hr Documented by: Sodium Chloride () 250 mls @ 15 mls/hr IV .[id number] PRN PRN Reason: Saline Flush Sodium Chloride () 250 mls @ 15 mls/hr IV .[id number] PRN PRN Reason: Additional IVPB Infusion Losartan Potassium (Cozaar) 25 mg PO DAILY [facility] Last Admin: 02/29/20 06:43 Dose: 25 mg Documented by: Magnesium Hydroxide (Milk Of Magnesia) 30 ml PO DAILY PRN PRN PRN Reason: Constipation Morphine Sulfate () 2 mg IV Q3H PRN PRN PRN Reason: Pain Score 6-10/10 Nitroglycerin (Nitrostat) 0.4 mg SUBLINGUAL Q5M PRN PRN Reason: CARDIAC/CHEST PAIN Ondansetron HCl (Zofran) 4 mg IV Q8H PRN PRN PRN Reason: NAUSEA/VOMITING Oxycodone HCl (Oxyir) 5 mg PO Q4H PRN PRN PRN Reason: Pain Score 4-5/10 Potassium Chloride (K-Dur) 20 meq PO DAILY [facility] Last Admin: 02/29/20 10:06 Dose: 20 meq Documented by: Prochlorperazine Edisylate (Compazine Iv) 5 mg IV Q4H PRN PRN PRN Reason: Breakthrough Nausea/Vomiting Psyllium Hydrophilic Mucilloid (Metamucil) 1 packet PO DAILY PRN PRN PRN Reason: Constipation Senna/Docusate Sodium (Senokot-S, [place]-Colace) 2 tablet PO BID PRN PRN PRN Reason: Constipation Sodium Chloride () 10 - 40 ml IV UD PRN PRN Reason: SALINE FLUSH Last Admin: 02/29/20 01:54 Dose: 10 ml Documented by: Temazepam (Restoril) 15 mg PO QHS PRN PRN PRN Reason: INSOMNIA Throat Lozenges (Cepacol Sore Throat Lozenge) 1 lozenge MUCOUS MEM Q2H PRN PRN PRN Reason: SORE THROAT Discharge Diet: Low fat/ Low Cholesterol Discharge Activity: Return to Normal Activity Weight Bearing Status: Weight bearing as tolerated Call your doctor if you observe: Shortness of breath, Dizziness, Fainting spells, Swelling in the ankles, Chest pain, Increased palpitations (irregular heartbeat) Home Medications: Medications to take at Discharge Multivitamins,Ther W-Minerals [Multivitamin With Minerals (BKC)] 1 tab PO DAILY 12/10/13 Allopurinol 100 mg PO DAILY 07/23/18 amlodipine 5 mg tablet 5 mg PO DAILY tab 11/27/18 testosterone cypionate 100 mg/mL intramuscular oil 100 mg IM QWEEK ml 11/27/18 Albuterol Inhaler [Ventolin Hfa] 1 - 2 puff INHALATION Q6H PRN PRN 07/08/19 Losartan Potassium [Cozaar] 25 mg PO DAILY 07/08/19 Ibuprofen 600 mg PO Q6H PRN PRN #20 tab 07/10/19 Potassium Chloride [K-Dur] 20 meq PO DAILY 07/10/19 atorvastatin 20 mg tablet 20 mg PO QHS #30 tab 07/10/19 duloxetine 30 mg capsule,delayed release 40 mg PO DAILY cap 12/05/19 Primary Care Physician: Jagjit Myers MD [Primary Care Provider] - Please follow up with your Primary Care Physician in: 1-2 weeks Patient Instructions: ED Dyspnea, ED Heart Disease Risk Factors Disposition: Home Minutes spent on discharge:: 40 Patient Condition:: Stable Medical Necessity - Tobacco Use Smoking Status: Former smoker Tobacco Use: Non-smoker Meaningful Use Info Meaningful Use Diagnoses (Choose all that apply): None applicable OBSV E&M: 72691 Observation care discharge
[2020-02-29] MEDS: amLODIPine 5 MG Tablet PO (12:32)
== END 2020-02-29 11:21 | disposition home or self-care (01) ==
LOC: ED 22:44 → PCU 02-29 00:36
PROVIDERS: Admitting Provider Family Medicine; Emergency Provider Emergency Medicine; PCP Family Medicine; Visit Provider Student in an Organized Health Care Education/Training Program
DX: R07.89 Other chest pain (principal); R06.02 Shortness of breath; N40.0 Benign prostatic hyperplasia without lower urinary tract symptoms; E78.00 Pure hypercholesterolemia, unspecified; I10 Essential (primary) hypertension; G47.33 Obstructive sleep apnea (adult) (pediatric); R06.09 Other forms of dyspnea; I25.2 Old myocardial infarction; I25.10 Atherosclerotic heart disease of native coronary artery without angina pectoris; K21.9 Gastro-esophageal reflux disease without esophagitis; K44.9 Diaphragmatic hernia without obstruction or gangrene; R94.31 Abnormal electrocardiogram [ECG] [EKG]; G89.29 Other chronic pain; E66.01 Morbid (severe) obesity due to excess calories; M79.7 Fibromyalgia; E78.5 Hyperlipidemia, unspecified; Z87.11 Personal history of peptic ulcer disease; Z87.891 Personal history of nicotine dependence; Z86.73 Personal history of transient ischemic attack (TIA), and 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 residual deficits; Z79.899 Other long term (current) drug therapy; Z86.711 Personal history of pulmonary embolism; Z95.5 Presence of coronary angioplasty implant and graft; Z68.39 Body mass index [BMI] 39.0-39.9, adult
CPT/HCPCS: 36415; 71045; 78452; 80048; 80053; 80061; 83735; 84484; 85025; 85379; 93005; 93017; 96360; 96361; 99218; 99251; 99285; A9500; J7030; A4216; G0378; G0463; J2785

== ENCOUNTER 2020-04-30 11:00 | Outpatient (RCR) | payer OTHER, SELFPAY ==
[2020-02-29 01:32] VITALS: BMI 39.1
--- NOTE | 2020-04-14 09:03 | HP.PTEVAL_ITS ---
Patient's Visit Information JERO GARZON is a 64 year old M referred to Physical Therapy by Dr. Sree Medeiros MD with a diagnosis of SPINAL STENOSIS OF LUMBAR. Date of Evaluation: 04/14/20 Physical Therapist: Behzad Kuhn, PT, Cert MDT, OCS - Visit Plan Frequency: 2x /Week Duration: 8WEEKS Plan: PT INTERVENTIONS LE FLEXABILITY,LUMBAR ROM,POSTURAL EX'S,DLS (ABD/BACK),LE STRENGTHENING - Subjective This 64 y/o male presents to physical therapy with spinal stenosis lumbar. Patient underwent s/p lumbar surgery L4-5 laminectomy on 03/24/[address] Hernandez at [facility] . Patient d/c 03/26/20 due to excess drainage. Patient has had lumbar pain with radicular symptoms with pain and weakness. Pateint had parathesia in thighs prior surgery. Patient seen DR Blackmon MRI showed stenosis. Patient did try epidural injection prior to surgery . Currently c/o parathesia in feet . Patient continue to have some weakness but improving since surgery..Bowel/bladder-. Coughing/sneezing. Aggraveting factors extended standing ,walking. Difficulty with bending and lifting.Alleviating fcators rest. MEDS meloxicam. Patient symptoms can affects sleeping. Patient surgery afects ADL's,housework tasks . Pateint surgery affects QOL. SOCIAL: . VOCATION: retired - Pain Bilateral Pain Intensity (Out of 10): 1 Pain Intensity Range: 10 Bilateral Ankle Pain Intensity (Out of 10): 2 Pain Intensity Range: 10 - Objective POSTURE: mild foward posture. GAIT: reciprocal pattern slow lisy. NEURO: c/o parathesia/tingling in feet,reflexes L3-4,L4-5 ,L5-S1 1/3,light touch intact. SYMMTRIES: align. INSCION : well approximate. PALPATION: tender paraspinals. MMT: quads 4-/5 ,hams 4/5 ,GTE 4/5,hip flexion right 3+/5,left 4- /5,ankle 4/5. FLEXABILITY: hams mod tight. LUMBAR ROM: flexion mod loss,extension mod severe loss,side glides mod loss. CERVICAL ROM: mod limited all planes of motion - Special Tests L/S Slump test left side: Negative L/S Slump test right side: Negative L/S Left Straight Leg Raise: Negative L/S Right Straight Leg Raise: Negative - Goals Goal 1:: Independant with HEP. Goal Time Frame: 4-6 Weeks Goal 2:: Patient to decrease back and hip pain by 60% or > to improve function wit ADLS' Goal Time Frame: 4-6 Weeks Goal 3:: Pateint increase BLE strength to 4/5 to improve function with walking and standing. Goal Time Frame: 4-6 Weeks Goal 4:: Patient to improve lumbar ROM for function of recovery Goal Time Frame: 4-6 Weeks Goal 5:: Patient to improve back owestry score by 5 points or> to improve QOL. Goal Time Frame: 4-6 Weeks - Rehabilitation Potential Physical Therapy Diagnosis: This patient underwent s/p lumbar surgery with dec rease lumbar ROM,tight hamstrings,decrease LE ,core weakness impairs walkling and standing affects ADLS' Rehabilitation Potential: Good - Anticipated Interventions Patient/Client Instruction: Educate patient on: Condition, Plan of Care For the Purpose of:: To decrease pain, To increase ROM, To improve muscle performance and motor function, To improve ability to perform ADL's, To increase tolerance to activity/condition/position, To improve performance and independence with ADL's, To improve ability of physical actions for home/community/work/leisure, To improve health of tissue, To decrease soft tissue restriction, To reduce risk of recurrence, To improve ability to perform tasks related to life management Therapeutic Exercise to Include: Strength training, Postural training, Flexibilty training, Dynamic Lumbar Stabilization For the Purpose of:: To decrease pain, To increase ROM, To improve muscle performance and motor function, To improve ability to perform ADL's, To increase tolerance to activity/condition/position, To improve ability of physical actions for home/community/work/leisure, To improve health of tissue, To decrease soft tissue restriction, To increase flexibility/ROM, To improve ability to perform tasks related to life management Thank you for the opportunity to evaluate your patient. For Medicare and Medicare HMO plans, please review the plan of care and approve it. It will need to be FAXED BACK to us at [phone] for Medicare purposes. For Medicare only, by signing this I certify the plan of care. Please let me know if there are questions or concerns regarding this plan of care. Physician Signature: Date:
--- NOTE | 2020-05-27 14:42 | HP.PTDCNRP_ITS ---
JERO GARZON was seen in my office for initial evaluation on 04/14/20. The following Plan of Care was established for this patient: Initial Frequency: 2x /Week Initial Duration: 8WEEKS Patient/Client Instruction: Educate patient on: Condition, Plan of Care For the Purpose of:: To decrease pain, To increase ROM, To improve muscle performance and motor function, To improve ability to perform ADL's, To increase tolerance to activity/condition/position, To improve performance and independence with ADL's, To improve ability of physical actions for home/community/work/leisure, To improve health of tissue, To decrease soft tissue restriction, To reduce risk of recurrence, To improve ability to perform tasks related to life management Therapeutic Exercise to Include: Strength training, Postural training, Flexibilty training, Dynamic Lumbar Stabilization For the Purpose of:: To decrease pain, To increase ROM, To improve muscle performance and motor function, To improve ability to perform ADL's, To increase tolerance to activity/condition/position, To improve ability of physical actions for home/community/work/leisure, To improve health of tissue, To decrease soft tissue restriction, To increase flexibility/ROM, To improve ability to perform tasks related to life management This patient was last seen in our office . Pertinent comments regarding their Physical therapy will appear below: This patient was sen for PT for low back pain. Pateint doing better with DLS abd/back ,postural ex's for HEP thus is d/c At this point I will be discontinuing this patient from physical therapy. I wou ld be happy to see this patient again in the future if found appropriate by the physician. Thank you! Behzad Kuhn, PT, Cert MDT, OCS
== END 2020-04-30 19:00 | disposition home or self-care (01) ==
LOC: PT 11:00
PROVIDERS: PCP Family Medicine; Referring Provider Orthopaedic Surgery Orthopaedic Surgery of the Spine; Visit Provider Orthopaedic Surgery Orthopaedic Surgery of the Spine
DX: M48.061 Spinal stenosis, lumbar region without neurogenic claudication (principal)
CPT/HCPCS: 97110; 97162

== ENCOUNTER → 2020-09-03 16:03 | Outpatient (CLI) | payer OTHER, SELFPAY ==
[2020-02-29 01:32] VITALS: BMI 39.1
--- NOTE | 2020-09-03 16:11 | MRI_ITS ---
STUDY: MRI THORACIC SPINE WITHOUT CONTRAST REASON FOR EXAM: Male, 64 years old. 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 COMPARISON: None. FINDINGS: Normal kyphosis of the thoracic spine. There is no substantial scoliosis. T1-2, T2-3, T3-4, T4-5, T5-6, T6-7, T7-8, T8-9, T9-10, T10-11, T11-12: There are multilevel disc space narrowing and endplates spondylosis without demonstrated central canal or foraminal stenosis. Normal visualized thoracic cord. MRI/Spine Thoracic (Routine) IMPRESSION: Moderate multilevel degenerative changes. Electronically Signed: Adam Cervantes MD at 11:45 EDT Tel , Service support ,
== END ==
PROVIDERS: PCP Family Medicine
DX: M47.24 Other spondylosis with radiculopathy, thoracic region (principal)
CPT/HCPCS: 72146

== ENCOUNTER → 2021-01-12 06:52 | Outpatient (CLI) | payer OTHER, SELFPAY ==
[2020-10-01 15:50] VITALS: BMI 39.5
--- NOTE | 2021-01-12 06:55 | CT_ITS ---
STUDY: CT ABDOMEN AND PELVIS WITH AND WITHOUT CONTRAST REASON FOR EXAM: Male, 65 years old. GROSS HEMATURIA. RADIATION DOSAGE (If Supplied By Facility): CTDIvol = ( 25.73 ) mGy, DLP = ( 4134.33 ) mGycm TECHNIQUE: Transaxial images were obtained from the dome of the diaphragm to the symphysis pubis without oral contrast. 100 ML ISOVUE 370 was administered. Sagittal and coronal images were reconstructed. Individualized dose optimization techniques were used for this CT. COMPARISON: Comparison is made with prior study dated 03/16/2019 and 07/23/2018. FINDINGS: The visualized lung bases are unremarkable. The visualized portions of the heart are within normal limits. There is decreased attenuation of the liver consistent with steatosis. There is a 1 cm cyst in the anterior aspect of the right lobe of the liver. The patient is status post cholecystectomy. Borderline splenomegaly. Normal pancreas. There is a small, circumscribed, smooth, low attenuation left adrenal mass, consistent with an adrenal adenoma. This is unchanged. Normal right adrenal gland. There is a 4.1 cm x 3.7 cm cyst in the posterior lower pole of the right kidney. Normal left kidney. Normal visualized stomach. Normal small intestine. There are scattered colonic diverticula consistent with diverticulosis. The appendix is visualized and appears normal. There is scattered atherosclerotic calcification of the abdominal aorta, without a demonstrated aneurysm. Normal inferior vena cava. There is borderline retroperitoneal lymphadenopathy with enlarged nodes no greater than 10mm in the short axis diameter. There is a 4.9 cm x 4.9 cm diverticulum arising from the right lateral aspect of the urinary bladder. There is enlargement of the prostate gland. The prostate measures 6.5 cm x 6.9 cm. This causes indentation of the bladder base. The prostate is heterogeneous density. There is evidence of a penile implant. There is a small umbilical hernia containing fat. There are diffuse degenerative changes of the visualized lumbar spine. There is a 1 cm sclerotic lesion in the anterior aspect of the T10 vertebrae. CT/CT Abd/Pelvis W/WO Contrast IMPRESSION: Prostatic enlargement with indentation at the bladder base. 4.9 cm x 4.9 cm diverticulum arising from the right lateral aspect of the urinary bladder. 1 cm sclerotic lesion in the anterior superior aspect of the T10 vertebrae. This is unchanged. Right renal cyst. 1 cm cyst in the right lobe of the liver. Electronically Signed: Paul Russ MD at 9:22 EDT , Service support ,
[2021-01-12 07:10] LABS: CREATININE FINGERSTICK 1.1 mg/dL (0.70-1.30); EGFR FINGERSTICK > 60.0000 mL/min (>60)
== END ==
PROVIDERS: PCP Family Medicine; Referring Provider Urology; Visit Provider Urology
DX: R31.0 Gross hematuria (principal)
CPT/HCPCS: 74178; Q9967

== ENCOUNTER → 2021-04-13 07:38 | Outpatient (CLI) | payer OTHER, SELFPAY ==
[2021-04-13 09:18] LABS: AST(SGOT) 21 U/L (15-37); Alanine Aminotransfer ALT/SGPT 43 U/L (16-61); Albumin, Serum 3.7 g/dL (3.2-5.0); Alkaline Phosphatase 72 U/L (45-117); Bilirubin, Direct 0.21 mg/dL (0.00-0.30); Cholesterol 92 mg/dL (200); Globulin 3.4 g/dL (2.2-4.2); High Density Lipoprotein 29 mg/dL; Protein, Total 7.1 g/dL (6.4-8.2); Triglycerides 179 mg/dL; Very Low Density Lipoprotein 36 mg/dL (5-40)
== END ==
PROVIDERS: PCP Family Medicine; Referring Provider Nurse Practitioner Family; Visit Provider Nurse Practitioner Family
DX: E78.00 Pure hypercholesterolemia, unspecified (principal); I25.10 Atherosclerotic heart disease of native coronary artery without angina pectoris; I10 Essential (primary) hypertension; Z95.5 Presence of coronary angioplasty implant and graft
CPT/HCPCS: 36415; 80061; 80076

== ENCOUNTER → 2021-10-20 | Outpatient (CLI) | payer OTHER, SELFPAY | END | disposition home or self-care (01) | LOC: LAB 09:30 | PROVIDERS: PCP Family Medicine; Referring Provider Nurse Practitioner Family; Visit Provider Nurse Practitioner Family | DX: R53.83 Other fatigue (principal) | CPT/HCPCS: 36415; 84402; 84403 ==

== ENCOUNTER → 2021-11-29 | Outpatient (CLI) | payer OTHER, SELFPAY | END | disposition home or self-care (01) | LOC: LABSPEC 13:19 | PROVIDERS: PCP Family Medicine; Referring Provider Family Medicine; Visit Provider Family Medicine | DX: I26.99 Other pulmonary embolism without acute cor pulmonale (principal) | CPT/HCPCS: 85379 ==

== ENCOUNTER 2022-02-12 11:27 | Emergency (ER) | payer OTHER, SELFPAY ==
[2022-02-12 11:29] VITALS: BP 155/79; PULSE 65; RESP 14; TEMP 36.8; O2SAT 100; BMI 38.5
--- NOTE | 2022-02-12 11:48 | EDS_ITS ---
HPI History of Present Illness Chief Complaint: Headache Informant: patient Onset/Context/Timing Onset: Weeks (2) Context: Gradual Timing: Continuous Quality -Headache: Positive for Sharp and Other (Pressure) Location: Right ear and behind his right eye Worsened by: Light, jaw movement Relieved by: Nothing Associated Symptoms/Injury Associated Symptoms: Positive for Sore Throat, Sinus Pressure and Photophobia; Negative for Fever, Nausea, Vomiting, Numbness, Tingling, Preceding Aura, Visual Changes, Blurred Vision or Visual Loss Injury - PICHARDO: Negative for Direct Trauma Narrative Narrative: Patient presents with right-sided headache that has been constant for the past 2 weeks. Patient states it is gradually getting worse. Patient describes it as a pressure over his right ear and behind his right eye. Patient states it radiates down into the right side of his throat and neck. Patient states it is worse with movement of his jaw and worse with light. Patient admits to a sore throat and some sinus pressure. Patient denies any nausea or vomiting. Patient denies any fevers or chills. Patient denies any visual changes. [facility] Medical History Abnormal myocardial perfusion study Abnormal stress test Acute pyelonephritis Atherosclerotic heart disease of [place] coronary artery without angina pectoris BPH (benign prostatic hyperplasia) Claudication Confusion Dyspnea on exertion Essential hypertension Fibromyalgia GERD (gastroesophageal reflux disease) H/O percutaneous transluminal coronary angioplasty History of shingles HTN (hypertension) Obesity DEENA (obstructive sleep apnea) Prostate enlargement Pulmonary embolism Pure hypercholesterolemia Rectal bleeding Testosterone deficiency TIA (transient ischemic attack) Unstable angina UTI (urinary tract infection) Home Medications multivitamin,kx-qwjg-koxzemra 27 mg-0.4 mg tablet 1 tab PO DAILY supplement 12/10/13 [History Last Taken 02/29/20] amlodipine 5 mg tablet 5 mg PO DAILY htn 11/27/18 [History Last Taken 02/29/20] albuterol sulfate 90 mcg/actuation aerosol inhaler 1 - 2 puff inhalation Q6H PRN PRN Asthma 07/08/19 [History Last Taken 02/08/20] esomeprazole magnesium 20 mg capsule,delayed release (Nexium) 40 mg PO DAILY 10/01/20 [History Last Taken Unknown] atorvastatin 20 mg tablet 20 mg PO QHS #90 tabs 11/19/20 [Rx Last Taken Unknown] aspirin 81 mg tablet,delayed release (Adult Aspirin Regimen) 81 mg PO DAILY #30 tabs 04/12/21 [Rx Last Taken Unknown] losartan 25 mg tablet 25 mg PO DAILY #90 tabs 04/12/21 [Rx Last Taken Unknown] allopurinol 300 mg tablet 300 mg PO DAILY 10/20/21 [History Last Taken Unknown] potassium chloride 10 mEq tablet,extended release 20 meq PO DAILY 11/23/21 [History Last Taken Unknown] testosterone 20.25 mg/1.25 gram (1.62 %) transdermal gel pump 4 pump transdermal DAILY 11/23/21 [History Last Taken Unknown] zqbxsnin-vifhmsfbe-ptcrzxvog 3.5 mg/mL-10,000 unit/mL-1 % ear solution 4 drp RIGHT EAR Q6H #10 mL 02/12/22 [Rx Last Taken Unknown] Allergy/AdvReac Type Severity Reaction Status Date / Time Sulfa (Sulfonamide Allergy Unknown Verified 02/12/22 11:28 Antibiotics) Family History Mother CAD (coronary artery disease) Hypertension Hx of CABG Father Hypertension Myocardial infarction Grandfather Myocardial infarction paternal Grandmother Cancer pancreatic CA Grandfather CAD (coronary artery disease) Surgical History History of arthroscopy of right knee History of back surgery History of laparoscopic cholecystectomy History of left heart catheterization (LHC) History of PTCA (~08/2012) History of repair of rotator cuff History of tonsillectomy and adenoidectomy History of transurethral resection of prostate Presence of coronary angioplasty implant and graft (~08/2012) Presence of stent in coronary artery (~08/2012) Spinal cord stimulator status (~05/2021) Social History Smoking Status: Former smoker quit date: 06/19/94 pack-years: 42 how long ago did patient quit smokin second hand exposure: No alcohol intake: current alcohol intake frequency: holidays/special occasions only Alcohol type: beer substance use type: does not use caffeine: Yes Type: carbonated beverages, coffee and tea what type of physical activity do you participate in: none ROS ROS ED Constitutional Constitutional ED: Denies chills or fever(s) Eyes Eyes: Denies blurry vision or change in vision ENT ENT ED: Reports sore throat; Denies rhinorrhea Cardiovascular Cardiovascular: Denies chest pain or palpitations Respiratory/Chest Respiratory/Chest: Denies cough or dyspnea Gastrointestinal Gastrointestinal: Denies nausea or vomiting Genitourinary Genitourinary ED: Denies dysuria or hematuria Musculoskeletal Musculoskeletal: Reports back pain and neck pain Integumentary Denies abscess or rash Neurologic Neurologic: Reports headache(s); Denies weakness Allergic/Immunologic Allergic/Immunologic ED: Denies mouth swelling or urticaria EXAM Physical Exam Const Vital Signs: 02/12/22 11:29 02/12/22 14:02 Temperature 98.2 F Temperature Source Temporal Pulse Rate 65 58 L Respiratory Rate 14 18 Blood Pressure 155/79 H 150/76 H Blood Pressure Mean 104 100 Pulse Ox 100 98 Oxygen Delivery Method Room Air Room Air Positive well nourished and well developed General Appearance ED: well developed and NAD HEENT Reports normocephalic, TM's clear and moist mucous membranes HEENT Narrative: There is some edema of the right external auditory canal. There is no discharge or drainage. There is mild pain with manipulation of the external ear. atraumatic; Negative for temporal artery tenderness Tympanic Membrane ED: Yes TM's clear Eyes PERRL and EOMs intact bilaterally Neck no lymphadenopathy, supple, no meningeal signs and no JVD Resp normal respiratory effort and clear to auscultation bilaterally Cardio regular rate and regular rhythm GI non-tender and non-distended Extremity normal to inspection and full ROM General Extremety ED: Negative for tenderness Neuro oriented x3, CN's II-XII intact bilaterally and no sensory deficits noted Sensorium / Orientation: awake and alert Speech: speech normal Motor Exam: strength 5/5 throughout Psych mental status grossly normal MDM MDM MDM Narrative Medical decision making narrative: Patient was given IV fluids, Reglan, and Benadryl. CT scan of the brain was obtained. There is no acute intracranial abnormality. This was interpreted by the radiologist and reviewed by myself. CBC was within normal limits. Sed rate was normal. Comprehensive metabolic profile was within normal limits. Patient is feeling better on reevaluation. Patient was advised of his findings. Patient was given a prescription for Cortisporin otic suspension. Patient was instructed to follow-up with his primary care physician in 5 to 7 days. Patient understood and was agreeable with the plan. All questions were answered. Lab Data Attestation: I reviewed the patient's lab results. Labs: Laboratory Results - last 24 hr 02/12/22 02/12/22 12:10 12:10 WBC 5.3 RBC 5.64 Hgb 15.8 Hct 48.5 MCV 86.0 MCH 28.0 MCHC 32.6 RDW Std Deviation 41.6 RDW Coeff of Lito 13.5 Plt Count 142 L MPV 11.3 Immature Gran % (Auto) 0.200 Neut % (Auto) 67.4 Lymph % (Auto) 20.8 [place] % (Auto) 8.9 Eos % (Auto) 2.5 Baso % (Auto) 0.2 Absolute Neuts (auto) 3.6 Absolute Lymphs (auto) 1.10 Nucleated RBC % 0 ESR 6 Sodium 141 Potassium 4.1 Chloride 110 H Carbon Dioxide 30.0 Anion Gap 1 L BUN 17 Creatinine 1.06 Estim Creat Clear Calc 88.73 Est GFR (MDRD) Af Amer 90 Est GFR (MDRD) Non-Af 75 BUN/Creatinine Ratio 16.0 Glucose 94 Calcium 9.1 Total Bilirubin 1.00 AST 20 ALT 34 Alkaline Phosphatase 74 Total Protein 7.3 Albumin 4.0 Globulin 3.3 Albumin/Globulin Ratio 1.2 Radiography Diagnostic Testing: Clinical Impression(s) from Imaging Studies Brain CT 02/12/22 11:53 IMPRESSION: No acute intracranial process identified. Chronic small vessel ischemic gliosis. Mild soft tissue thickening of the right external auditory canal, raising the possibility of otitis externa. Clear mastoid air cells. Electronically Signed: Grace Morrison MD at 12:53 EDT , Discharge Plan Triage Chief Complaint: Headache ED Provider: Nahum Dias Dx/Rx/DC Orders Clinical Impression: Headache, Otitis externa of right ear Instructions: ED Headache Unspecified, ED External Ear Infection (Adult) Prescriptions: New vdtmqnhp-qfzrgelww-MS 3.5-10,000-1 mg/mL-unit/mL-% solution 4 drp RIGHT EAR Q6H Qty: 10 0RF No Action amlodipine 5 mg tablet 5 mg PO DAILY esomeprazole magnesium [Nexium] 20 mg capsule,delayed release(DR/EC) 40 mg PO DAILY losartan 25 mg tablet 25 mg PO DAILY Qty: 90 3RF aspirin [Adult Aspirin Regimen] 81 mg tablet,delayed release (DR/EC) 81 mg PO DAILY Qty: 30 0RF allopurinol 300 mg tablet 300 mg PO DAILY testosterone 20.25 mg/1.25 gram (1.62 %) gel in metered-dose pump 4 pump transdermal DAILY Label Comments: APPLY 4 PUMPS DAILY potassium chloride 10 mEq tablet extended release 20 meq PO DAILY multivitamin,eo-ocll-ixvahpac 1 TABLET tablet 1 tab PO DAILY Label Comments: vitamin albuterol sulfate 1 INHALER inhaler 1 - 2 puff INHALATION Q6H PRN PRN (Reason: Asthma) atorvastatin 20 mg tablet 20 mg PO QHS Qty: 90 3RF Primary Care Provider: Jagjit Myers Referrals: Jagjit Myers MD [Primary Care Provider] - 3-5 Days Disposition Disposition: Home, Self Care
--- NOTE | 2022-02-12 11:53 | CT_ITS ---
HISTORY: Pain- RIGHT EAR PAIN. TECHNIQUE: Multiple axial images were obtained of the head without intravenous contrast. A radiation dose optimization technique was used for this scan. 268 images. COMPARISON: 08/17/2016. FINDINGS: BRAIN PARENCHYMA: Multiple foci and zones of low attenuation in the bilateral cerebral white matter compatible with chronic small vessel ischemic gliosis. No acute intra-axial hemorrhage identified. CSF SPACES: Generalized volume loss. No midline shift or other significant mass effect. No acute extra-axial hemorrhage seen. CALVARIUM: Intact. PARANASAL SINUSES: Mild right maxillary sinus mucosal thickening. MASTOID AIR CELLS: Clear. Mild soft tissue thickening of the right external auditory canal. ORBITS: Unremarkable. CT/Brain/Head without Contrast IMPRESSION: No acute intracranial process identified. Chronic small vessel ischemic gliosis. Mild soft tissue thickening of the right external auditory canal, raising the possibility of otitis externa. Clear mastoid air cells. Electronically Signed: Grace Morrison MD at 12:53 EDT ,
[2022-02-12] MEDS: Metoclopramide 10 MG/2 ML Vial IV (12:09)
[2022-02-12] MEDS: DiphenhydrAMINE 50 MG/ML Syringe 25 MG IV (12:09)
[2022-02-12 12:24] LABS: Erythrocyte Sedimentation Rate 6 mm/hr (0-20)
[2022-02-12 12:25] LABS: Absolute Neutrophil Count 3.6 X10^3/uL (2.0-7.7); Basophil# 0.01 X10^3/uL; Basophil% 0.2 % (0-1); Eosinophil# 0.13 X10^3/uL; Eosinophils% 2.5 % (0-5); Hematocrit 48.5 % (40-54); Hemoglobin 15.8 g/dL (13.0-16.5); Lymphocyte % 20.8 % (19-41); Mean Corp Hgb Conc 32.6 g/dL (32-36); Mean Platelet Vol. 11.3 fl (6.2-12.0); Monocyte# 0.47 X10^3/uL; Monocyte% 8.9 % (0-10); NRBC Flagged by Analyzer 0 % (0-5); Neutrophil # 3.56 X10^3/uL (2.7-7.7); Neutrophil % 67.4 % (47-70); Platelet Count 142 K/mm3 (150-450); RBC Distribution Width CV 13.5 % (11.6-14.6); RBC Distribution Width SD 41.6 fl (35.1-43.9); Red Blood Count 5.64 M/mm3 (4.6-6.2); White Blood Count 5.3 K/mm3 (4.4-11.0)
[2022-02-12 12:40] LABS: ALB/GLOB Ratio 1.2 RATIO (0.9-2.4); AST(SGOT) 20 U/L (15-37); Alanine Aminotransfer ALT/SGPT 34 U/L (16-61); Alkaline Phosphatase 74 U/L (45-117); Anion Gap 1 (5-15); BUN 17 mg/dL (7-18); Calcium,Total 9.1 mg/dL (8.5-10.1); Chloride 110 mmol/L (98-107); Creatinine, Serum 1.06 mg/dL (0.70-1.30); EST Glomerular Filtration Rate 75 mL/min (>60); Est Glom Filt Rate - Afr Amer 90 mL/min (>60); Estimated Creatinine Clearance 88.73 ml/min; Globulin 3.3 g/dL (2.2-4.2); Glucose 94 mg/dL (74-106); Potassium 4.1 mmol/L (3.5-5.1); Protein, Total 7.3 g/dL (6.4-8.2); Sodium Level 141 mmol/L (136-145)
[2022-02-12 14:02] VITALS: BP 150/76; PULSE 58; RESP 18; O2SAT 98
[2022-02-12 14:28] VITALS: BP 149/77; PULSE 60; RESP 18; O2SAT 100
== END 2022-02-12 14:32 | disposition home or self-care (01) ==
PROVIDERS: Emergency Provider Emergency Medicine; PCP Family Medicine; Visit Provider Emergency Medicine
DX: R51.9 Headache, unspecified (principal); J02.9 Acute pharyngitis, unspecified; H60.91 Unspecified otitis externa, right ear; Z87.891 Personal history of nicotine dependence; E78.00 Pure hypercholesterolemia, unspecified; I10 Essential (primary) hypertension; I25.10 Atherosclerotic heart disease of native coronary artery without angina pectoris; G47.33 Obstructive sleep apnea (adult) (pediatric); Z86.73 Personal history of transient ischemic attack (TIA), and 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 residual deficits; Z95.5 Presence of coronary angioplasty implant and graft
CPT/HCPCS: 70450; 80053; 85025; 85652; 96374; 96375; 99282; A4216

== ENCOUNTER → 2022-04-20 | Outpatient (CLI) | payer MEDICARE, OTHER, SELFPAY ==
[2022-04-20 11:18] LABS: AST(SGOT) 21 U/L (15-37); Alanine Aminotransfer ALT/SGPT 37 U/L (16-61); Albumin, Serum 3.9 g/dL (3.2-5.0); Alkaline Phosphatase 77 U/L (45-117); Bilirubin, Direct 0.31 mg/dL (0.00-0.30); Cholesterol 73 mg/dL (200); Globulin 3.4 g/dL (2.2-4.2); High Density Lipoprotein 27 mg/dL; PSA,Total - Annual Screen 2.95 ng/mL (0.00-4.00); Protein, Total 7.3 g/dL (6.4-8.2); Triglycerides 139 mg/dL; Very Low Density Lipoprotein 28 mg/dL (5-40)
== END | disposition home or self-care (01) ==
PROVIDERS: Internal Medicine Cardiovascular Disease; PCP Family Medicine; Referring Provider Urology; Visit Provider Urology
DX: I25.10 Atherosclerotic heart disease of native coronary artery without angina pectoris (principal); Z12.5 Encounter for screening for malignant neoplasm of prostate; E78.00 Pure hypercholesterolemia, unspecified
CPT/HCPCS: 36415; 80061; 80076; 84153; G0103

== ENCOUNTER → 2022-04-25 | Outpatient (CLI) | payer MEDICARE, OTHER, SELFPAY | END | disposition home or self-care (01) | LOC: LAB 09:05 | PROVIDERS: PCP Family Medicine; Referring Provider Urology; Visit Provider Urology | DX: E29.1 Testicular hypofunction (principal) | CPT/HCPCS: 36415; 84403 ==

== ENCOUNTER → 2022-04-29 | Outpatient (CLI) | payer MEDICARE, OTHER, SELFPAY ==
[2022-04-29 11:58] LABS: Absolute Lymphocyte Count 1.25 X10^3/uL (0.83-4.51); Absolute Neutrophil Count 5.5 X10^3/uL (2.0-7.7); Basophil# 0.02 X10^3/uL; Basophil% 0.3 % (0-1); Eosinophil# 0.09 X10^3/uL; Eosinophils% 1.2 % (0-5); Hemoglobin 16.8 g/dL (13.0-16.5); Lymphocyte # 1.25 X10^3/ul (0.83-4.51); Lymphocyte % 16.9 % (19-41); Mean Corp Hgb Conc 34.3 g/dL (32-36); Mean Corpuscular Hgb 29.6 pg (27.0-32.0); Mean Corpuscular Volume 86.3 fL (80-94); Mean Platelet Vol. 12.1 fl (6.2-12.0); Monocyte# 0.51 X10^3/uL; Monocyte% 6.9 % (0-10); NRBC Flagged by Analyzer 0 % (0-5); Neutrophil # 5.49 X10^3/uL (2.7-7.7); Neutrophil % 74.4 % (47-70); Platelet Count 163 K/mm3 (150-450); RBC Distribution Width CV 13.7 % (11.6-14.6); RBC Distribution Width SD 42.8 fl (35.1-43.9); Red Blood Count 5.68 M/mm3 (4.6-6.2); White Blood Count 7.4 K/mm3 (4.4-11.0)
[2022-04-29 12:48] LABS: Anion Gap 6 (5-15); BUN 21 mg/dL (7-18); BUN/Creat Ratio 16.2 RATIO (10-20); Calcium,Total 9.5 mg/dL (8.5-10.1); Chloride 107 mmol/L (98-107); EST Glomerular Filtration Rate 59 mL/min (>60); Est Glom Filt Rate - Afr Amer 71 mL/min (>60); Glucose 147 mg/dL (74-106); Magnesium 2.3 mg/dL (1.6-2.6); Potassium 3.7 mmol/L (3.5-5.1); Sodium Level 141 mmol/L (136-145); Thyroid Stim Hormone (TSH) 1.24 uIU/mL (0.358-3.74)
== END | disposition home or self-care (01) ==
LOC: LAB 11:09
PROVIDERS: PCP Family Medicine; Referring Provider Internal Medicine Cardiovascular Disease; Visit Provider Internal Medicine Cardiovascular Disease
DX: R06.00 Dyspnea, unspecified (principal); I48.92 Unspecified atrial flutter; E78.00 Pure hypercholesterolemia, unspecified; Z95.5 Presence of coronary angioplasty implant and graft; I10 Essential (primary) hypertension; I25.10 Atherosclerotic heart disease of native coronary artery without angina pectoris
CPT/HCPCS: 36415; 80048; 83735; 84443; 85025

== ENCOUNTER 2022-05-07 11:27 | Emergency (ER) | payer MEDICARE, OTHER, SELFPAY ==
[2022-05-07 11:28] VITALS: BP 160/88; PULSE 72; RESP 18; TEMP 36.6; O2SAT 100; BMI 39.1
[2022-05-07 11:33] VITALS: BP 160/88; PULSE 67; RESP 18; O2SAT 97
--- NOTE | 2022-05-07 11:43 | EKG12_ITS ---
Test Reason : CP Blood Pressure : / mmHG Vent. Rate : 068 BPM Atrial Rate : 277 BPM P-R Int : 000 ms QRS Dur : 092 ms QT Int : 426 ms P-R-T Axes : 052 -34 037 degrees QTc Int : 452 ms Suspect unspecified pacemaker failure Atrial flutter with variable A-V block Left axis deviation ST & T wave abnormality, consider inferior ischemia Abnormal ECG Confirmed by ELENA CONTI, SUNG ([id number]), design editor LATISHA HECK ([id number]) on 05/10/2022 8:02:26 AM Referred By: DAWSON Confirmed By:SUNG PARKER MD
--- NOTE | 2022-05-07 11:44 | EDS_ITS ---
HPI History of Present Illness Chief Complaint: Chest Pain Narrative Narrative: .Patient presents with left-sided chest pain radiating to his left arm that started yesterday sometime. Of note, he recently was diagnosed with atrial flutter and started on Eliquis by his medical office manager, Dr. Alfred. He states he is not on a beta-jacob or anything for rate control because his atrial flutter responds anywhere from the 60s to as high as 118 bpm. It was thought that putting him on a rate control agent would make his heart rate too slow. He states that he has been short of breath, weak, and tired with a left-sided chest pain radiating to his left arm. He is also felt flushed. He denies any other symptoms. His discomfort has been relatively constant since yesterday. He does have past medical history of coronary artery disease with stent placement [facility] Medical History Abnormal myocardial perfusion study Abnormal stress test Acute pyelonephritis Atherosclerotic heart disease of [place] coronary artery without angina pectoris BPH (benign prostatic hyperplasia) Claudication Confusion Dyspnea on exertion Essential hypertension Fibromyalgia GERD (gastroesophageal reflux disease) H/O percutaneous transluminal coronary angioplasty History of shingles HTN (hypertension) Obesity DEENA (obstructive sleep apnea) Prostate enlargement Pulmonary embolism Pure hypercholesterolemia Rectal bleeding Testosterone deficiency TIA (transient ischemic attack) Unstable angina UTI (urinary tract infection) Home Medications multivitamin,uo-ruyw-gliujnmw 27 mg-0.4 mg tablet 1 tab PO DAILY supplement 12/10/13 [History Last Taken 02/29/20] albuterol sulfate 90 mcg/actuation aerosol inhaler 1 - 2 puff inhalation Q6H PRN PRN Asthma 07/08/19 [History Last Taken 02/08/20] esomeprazole magnesium 20 mg capsule,delayed release (Nexium) 40 mg PO DAILY 10/01/20 [History Last Taken Unknown] atorvastatin 20 mg tablet 20 mg PO QHS #90 tabs 11/19/20 [Rx Last Taken Unknown] aspirin 81 mg tablet,delayed release (Adult Aspirin Regimen) 81 mg PO DAILY #30 tabs 04/12/21 [Rx Last Taken Unknown] allopurinol 300 mg tablet 300 mg PO DAILY 10/20/21 [History Last Taken Unknown] potassium chloride 10 mEq tablet,extended release 20 meq PO DAILY 11/23/21 [History Last Taken Unknown] testosterone 20.25 mg/1.25 gram (1.62 %) transdermal gel pump 4 pump transdermal DAILY 11/23/21 [History Last Taken Unknown] losartan 25 mg tablet 25 mg PO DAILY #90 tabs 03/03/22 [Rx Last Taken Unknown] amlodipine 5 mg tablet 5 mg PO DAILY htn #90 tabs 03/17/22 [Rx Last Taken Unknown] apixaban 5 mg tablet 5 mg PO BID #60 tabs 04/29/22 [Rx Last Taken Unknown] ciprofloxacin HCl 250 mg tablet 250 mg PO BID 04/29/22 [History Last Taken Un known] tamsulosin 0.4 mg capsule 0.4 mg PO DAILY 04/29/22 [History Last Taken Unknown] Allergy/AdvReac Type Severity Reaction Status Date / Time Sulfa (Sulfonamide Allergy Unknown Verified 05/07/22 11:36 Antibiotics) Family History Mother CAD (coronary artery disease) Hypertension Hx of CABG Father Hypertension Myocardial infarction Grandfather Myocardial infarction paternal Grandmother Cancer pancreatic CA Grandfather CAD (coronary artery disease) Surgical History History of arthroscopy of right knee History of back surgery History of laparoscopic cholecystectomy History of left heart catheterization (LHC) History of PTCA (~08/2012) History of repair of rotator cuff History of tonsillectomy and adenoidectomy History of transurethral resection of prostate Presence of coronary angioplasty implant and graft (~08/2012) Presence of stent in coronary artery (~08/2012) Spinal cord stimulator status (~05/2021) Social History Smoking Status: Former smoker quit date: 06/19/94 pack-years: 42 how long ago did patient quit smokin second hand exposure: No alcohol intake: current alcohol intake frequency: holidays/special occasions only Alcohol type: beer substance use type: does not use caffeine: Yes Type: carbonated beverages, coffee and tea what type of physical activity do you participate in: none ROS ROS ED ROS Narrative Constitutional: No fever, no chills. Generalized weakness. Fatigue and malaise. HEENT: No sore throat. No neck pain. No loss of vision. No rhinorrhea. Cardiovascular: Left-sided radiating to left arm chest pain. No palpitations. No pedal edema. Respiratory: No cough, positive shortness of breath. Abdominal: No abdominal pain. No nausea. No vomiting. Genitourinary: No dysuria. No hematuria. Musculoskeletal: No myalgias. No arthralgias. Neurologic: No headaches. No dizziness. No lightheadedness. Skin: No rash. No change in color. Psychiatric: No depression. No anxiety. EXAM Physical Exam Narrative Exam Narrative: Afebrile. Vital signs noted. HEENT: Normocephalic. Atraumatic. PERRL, EOMI. Neck soft and supple. No point tenderness or step off. Cardiovascular: Regular rate with irregular rhythm. No murmurs, rubs, or gallops appreciated. Respiratory: No tachypnea. Lungs clear to auscultation bilaterally. Gastrointestinal: Abdomen soft, nontender, with normoactive bowel sounds. No rebound or guarding. Neurological: Awake. Alert. Nonfocal, nonlateralizing. Skin: No rash. Normal color. No pallor. Musculoskeletal: No pedal edema. Full range of motion extremities. Const Vital Signs: 05/07/22 11:28 05/07/22 11:33 05/07/22 11:35 Temperature 97.8 F Temperature Source Temporal Pulse Rate 72 67 Respiratory Rate 18 18 Respiratory Effort Normal Non-Labored Blood Pressure 160/88 H 160/88 H Blood Pressure Mean 112 112 Pulse Ox 100 97 Oxygen Delivery Method Room Air Room Air 05/07/22 12:11 05/07/22 12:25 05/07/22 13:04 Temperature Temperature Source Pulse Rate 68 71 Respiratory Rate 18 15 Respiratory Effort Blood Pressure 132/80 H 147/88 H Blood Pressure Mean 97 107 Pulse Ox 97 99 Oxygen Delivery Method Room Air Room Air Heart Score History: Slightly/Non-Suspicious ECG: Normal (Atrial flutter) Age: >45 - <65 years Risk Factors: >/= 3 Risk Factors or History of CAD Troponin: </= Normal Limit Score: 3 MDM MDM MDM Narrative Medical decision making narrative: EKG was obtained and interpreted by myself which demonstrates atrial flutter with variable AV block at [address] changes. I reviewed his prior electronic medical record. He was seen recently and started on a blood thinner, but he has not been on it for at least 2 weeks. They are considering cardioversion and monitoring as they are unsure if this is paroxysmal atrial flutter. Chest x-ray interpreted by myself shows no acute process. CBC is grossly normal with a normal white count of 5.8, hemoglobin normal at 16.1, hematocrit 48.0. Platelet count normal at 156. Electrolyte panel shows chloride elevated at 109 with an anion gap low at 3, glucose appropriately eleva yordan at 101. Initial high-sensitivity troponin is 13. I will repeat this in 2 hours for more assurance although his chest pain has been since yesterday. Repeat high-sensitivity troponin 13 for a delta troponin of 0. At this point in time, I feel he can be discharged safely home with follow-up. He will follow-up in continue his anticoagulant, wear his Holter monitor when he receives that next week, and follow-up with his medical office manager. Return instructions to the emergency department were reviewed. Disposition is discharged home in stable condition. Lab Data Attestation: I reviewed the patient's lab results. Labs: Laboratory Results - last 24 hr 05/07/22 05/07/22 05/07/22 11:35 11:35 13:50 WBC 5.8 RBC 5.62 Hgb 16.1 Hct 48.0 MCV 85.4 MCH 28.6 MCHC 33.5 RDW Std Deviation 42.3 RDW Coeff of Lito 13.8 Plt Count 156 MPV 11.5 Immature Gran % (Auto) 0.300 Neut % (Auto) 66.6 Lymph % (Auto) 22.6 [place] % (Auto) 8.6 Eos % (Auto) 1.6 Baso % (Auto) 0.3 Absolute Neuts (auto) 3.9 Absolute Lymphs (auto) 1.31 Nucleated RBC % 0 Sodium 141 Potassium 3.7 Chloride 109 H Carbon Dioxide 29.0 Anion Gap 3 L BUN 11 Creatinine 1.04 Estim Creat Clear Calc 90.43 Est GFR (MDRD) Af Amer 92 Est GFR (MDRD) Non-Af 76 BUN/Creatinine Ratio 10.6 Glucose 101 Calcium 8.8 Troponin I High Sens 13 13 Radiography Diagnostic Testing: Clinical Impression(s) from Imaging Studies Chest X-Ray 05/07/22 11:55 IMPRESSION: No acute cardiopulmonary process. Electronically Signed: Sharona Kramer MD at 12:56 EST , Discharge Plan Triage Chief Complaint: Chest Pain ED Provider: Stew Shi Dx/Rx/DC Orders Clinical Impression: Atrial flutter, Chest pain Instructions: ED Atrial Flutter, ED Chest Pain, Uncertain Cause Prescriptions: No Action esomeprazole magnesium [Nexium] 20 mg capsule,delayed release(DR/EC) 40 mg PO DAILY aspirin [Adult Aspirin Regimen] 81 mg tablet,delayed release (DR/EC) 81 mg PO DAILY Qty: 30 0RF allopurinol 300 mg tablet 300 mg PO DAILY tamsulosin 0.4 mg capsule 0.4 mg PO DAILY ciprofloxacin HCl 250 mg tablet 250 mg PO BID Rx Instructions: x7 days apixaban 5 mg tablet 5 mg PO BID Qty: 60 3RF testosterone 20.25 mg/1.25 gram (1.62 %) gel in metered-dose pump 4 pump transdermal DAILY Label Comments: APPLY 4 PUMPS DAILY potassium chloride 10 mEq tablet extended release 20 meq PO DAILY multivitamin,nu-zltg-xzxiouvb 1 TABLET tablet 1 tab PO DAILY Label Comments: vitamin albuterol sulfate 1 INHALER inhaler 1 - 2 puff INHALATION Q6H PRN PRN (Reason: Asthma) atorvastatin 20 mg tablet 20 mg PO QHS Qty: 90 3RF losartan 25 mg tablet 25 mg PO DAILY Qty: 90 3RF amlodipine 5 mg tablet 5 mg PO DAILY Qty: 90 3RF Primary Care Provider: Jagjit Myers Referrals: Willis Alfred MD [Med Staff - Active Staff] - 2 Days Jagjit Myers MD [Primary Care Provider] - Disposition Disposition: Home, Self Care
--- NOTE | 2022-05-07 11:55 | RAD_ITS ---
STUDY: X-RAY CHEST REASON FOR EXAM: Male, 66 years old. Chest pain TECHNIQUE: Single frontal view of the chest. COMPARISON: 02/28/2020. FINDINGS: There is no new focal consolidation. There is a stable curvilinear opacity within the right lower lung cyst in with atelectasis and/or scarring. Normal size heart. Normal mediastinum and whit. Normal visualized pulmonary arteries. Normal visualized aortic arch and descending thoracic aorta. Normal visualized thoracic spine. Normal visualized ribs, clavicles, and shoulders. There is a spinal stimulator in place with the electrode terminating within the expected region of the lower thoracic spinal canal. There is no demonstrated abnormality of the visualized soft tissue structures of the upper abdomen. RAD/Chest 1 View (Portable) IMPRESSION: No acute cardiopulmonary process. Electronically Signed: Sharona Kramer MD at 12:56 EST ,
[2022-05-07 11:58] LABS: Absolute Lymphocyte Count 1.31 X10^3/uL (0.83-4.51); Absolute Neutrophil Count 3.9 X10^3/uL (2.0-7.7); Basophil# 0.02 X10^3/uL; Basophil% 0.3 % (0-1); Eosinophil# 0.09 X10^3/uL; Eosinophils% 1.6 % (0-5); Hemoglobin 16.1 g/dL (13.0-16.5); Lymphocyte # 1.31 X10^3/ul (0.83-4.51); Lymphocyte % 22.6 % (19-41); Mean Corp Hgb Conc 33.5 g/dL (32-36); Mean Corpuscular Hgb 28.6 pg (27.0-32.0); Mean Corpuscular Volume 85.4 fL (80-94); Mean Platelet Vol. 11.5 fl (6.2-12.0); Monocyte% 8.6 % (0-10); NRBC Flagged by Analyzer 0 % (0-5); Neutrophil # 3.85 X10^3/uL (2.7-7.7); Neutrophil % 66.6 % (47-70); Platelet Count 156 K/mm3 (150-450); RBC Distribution Width CV 13.8 % (11.6-14.6); RBC Distribution Width SD 42.3 fl (35.1-43.9); Red Blood Count 5.62 M/mm3 (4.6-6.2); White Blood Count 5.8 K/mm3 (4.4-11.0)
[2022-05-07 12:14] LABS: Anion Gap 3 (5-15); BUN 11 mg/dL (7-18); BUN/Creat Ratio 10.6 RATIO (10-20); Calcium,Total 8.8 mg/dL (8.5-10.1); Chloride 109 mmol/L (98-107); Creatinine, Serum 1.04 mg/dL (0.70-1.30); EST Glomerular Filtration Rate 76 mL/min (>60); Est Glom Filt Rate - Afr Amer 92 mL/min (>60); Estimated Creatinine Clearance 90.43 ml/min; Glucose 101 mg/dL (74-106); Potassium 3.7 mmol/L (3.5-5.1); Sodium Level 141 mmol/L (136-145); Troponin-I HS (w/2H Reflex) 13 pg/mL (3.0-78.0)
[2022-05-07 12:25] VITALS: BP 132/80; PULSE 68; RESP 18; O2SAT 97
[2022-05-07 13:04] VITALS: BP 147/88; PULSE 71; RESP 15; O2SAT 99
[2022-05-07 13:54] LABS: Reflex Troponin-HS? (from REC) Y
[2022-05-07 14:16] LABS: Troponin-I HS 13 pg/mL (3.0-78.0)
[2022-05-07 14:37] VITALS: BP 148/94; PULSE 65; RESP 16; O2SAT 97
== END 2022-05-07 14:47 | disposition home or self-care (01) ==
PROVIDERS: Emergency Provider Emergency Medicine; PCP Family Medicine; Visit Provider Emergency Medicine
DX: I48.92 Unspecified atrial flutter (principal); Z79.01 Long term (current) use of anticoagulants; E78.00 Pure hypercholesterolemia, unspecified; Z87.891 Personal history of nicotine dependence; I44.30 Unspecified atrioventricular block; I10 Essential (primary) hypertension; I25.10 Atherosclerotic heart disease of native coronary artery without angina pectoris; R07.9 Chest pain, unspecified
CPT/HCPCS: 71045; 80048; 84484; 85025; 93005; 99284; A4216

== ENCOUNTER → 2022-05-09 | Outpatient (CLI) | payer MEDICARE, OTHER, SELFPAY | END | disposition home or self-care (01) | PROVIDERS: PCP Family Medicine; Visit Provider Internal Medicine Cardiovascular Disease | DX: R06.00 Dyspnea, unspecified (principal); I48.92 Unspecified atrial flutter; E78.00 Pure hypercholesterolemia, unspecified; Z95.5 Presence of coronary angioplasty implant and graft; I10 Essential (primary) hypertension; I25.10 Atherosclerotic heart disease of native coronary artery without angina pectoris | CPT/HCPCS: 93225; 93226 ==

== ENCOUNTER → 2022-05-18 | Outpatient (CLI) | payer MEDICARE, OTHER, SELFPAY ==
--- NOTE | 2022-05-18 06:33 | ECHOD_ITS ---
Reason For Study: PALPITATIONS Procedure This was a 2D Doppler, Color Flow transthoracic echocardiogram. The study was technically difficult. Due to arrhythmia. Exam performed in department. Left Ventricle Normal LV size. Mild concentric left ventricular hypertrophy. Left ventricular systolic function is normal. The estimated ejection fraction is 55 %. Unable to assess diastolic dysfunction. No regional wall motion abnormalities noted. Right Ventricle Normal RV size. Normal systolic function. Atria The left atrium is mildly enlarged. Normal right atrium. No doppler evidence for ASD. Mitral Valve There is no mitral annular calcification. Mild focal mitral valve calcification of the posterior leaflet. Mild (1+) mitral valve insufficiency. Tricuspid Valve Normal tricuspid valve. Trivial tricuspid valve insufficiency. Unable to estimate RV systolic pressure/pulmonary artery pressure due to technically difficult study. Aortic Valve Trisinus/trileaflet aortic valve. Normal aortic valve. Pulmonic Valve The pulmonic valve is not well visualized. Trivial pulmonic valve insufficiency. Great Vessels Normal sized aortic root. Pericardium/Pleural No pericardial effusion. MMode/2D Measurements & Calculations LVIDd: 5.3 cm IVSd: 1.3 cm Ao root diam: 3.2 cm LVIDs: 3.0 cm LVPWd: 1.4 cm RVDd: 3.5 cm FS: 44.1 % LAV(MOD-bp): 128.1 ml LVAd ap4: 39.6 cm2 LVAd ap2: 36.5 cm2 LAV(MOD-bp) Indexed: 46.8 ml/m2 LVLd ap4: 9.0 cm LVLd ap2: 9.4 cm LAV(MOD-sp2): 120.5 ml EDV(MOD-sp4): 147.4 ml EDV(MOD-sp2): 124.3 ml LAV(MOD-sp4): 120.2 ml EDV(sp4-el): 147.1 ml EDV(sp2-el): 121.0 ml LVAs ap4: 24.7 cm2 LVAs ap2: 22.7 cm2 LVLs ap4: 7.6 cm LVLs ap2: 8.0 cm ESV(MOD-sp4): 72.9 ml ESV(MOD-sp2): 56.7 ml ESV(sp4-el): 68.3 ml ESV(sp2-el): 54.8 ml EF(MOD-sp4): 50.6 % EF(MOD-sp2): 54.4 % EF(sp4-el): 53.5 % SV(MOD-sp4): 74.5 ml SV(MOD-sp2): 67.6 ml SV(sp4-el): 78.7 ml LA dimension(2D): 5.1 cm LA A4 area: 32.1 cm2 RA A4 area: 21.8 cm2 Time Measurements MV dec time: 0.16 sec Doppler Measurements & Calculations MV E max yasmeen: 114.7 cm/sec Ao V2 max: 100.5 cm/sec MV dec slope: 742.6 cm/sec2 Ao max P.1 mmHg Ao V2 mean: 74.2 cm/sec Ao mean P.5 mmHg Ao V2 VTI: 23.2 cm AV (velocity ratio): 0.87 LV V1 max: 90.2 cm/sec PA V2 max: 100.0 cm/sec LV V1 max P.3 mmHg LV V1 mean P.9 mmHg LV V1 mean: 63.9 cm/sec LV V1 VTI: 20.3 cm ECHO/Echo Complete Interpretation Summary The study was technically difficult. Left ventricular systolic function is normal. The estimated ejection fraction is 55 %. Mild concentric left ventricular hypertrophy. The left atrium is mildly enlarged. Mild focal mitral valve calcification of the posterior leaflet. Mild (1+) mitral valve insufficiency. Trivial tricuspid valve insufficiency. Trivial pulmonic valve insufficiency. Unable to estimate RV systolic pressure/pulmonary artery pressure due to techni anat difficult study. Unable to assess diastolic dysfunction. Ordering Physician: Willis Alfred Referring Physician: Yaneth Rob Performed By: Imelda Lopez, RDCS, RVT
--- NOTE | 2022-05-18 11:06 | STRESSREP ---
Stress Test Report Date: 05-18-2022 Procedure: Pharmacologic stress nuclear imaging study Indications: Atrial flutter; CAD; PCI; shortness of breath/dyspnea on exertion Consent: Per the patient Procedure: The patient underwent pharmacologic (Regadenoson 0.4mg ) evaluation with a peak heart rate of 96 beats per minute (61%predicted maximal heart rate) and a resting blood pressure of 120/68 mmHg and a peak blood pressure of 122/68 mmHg. The baseline ECG demonstrated atrial flutter. The peak pharmacologic ECG demonstrated no obvious ECG changes. There was a rare PVC during recovery. There was no complaint of chest discomfort during pharmacologic infusion or recovery. The examination was discontinued secondary to completion of protocol. Impression: 1. Pharmacologic (Regadenoson) evaluation 2. Peak pharmacologic ECG with continued atrial flutter with no obvious ECG changes. 3. There was a rare PVC during recovery. 4. Nuclear images pending Myocardial perfusion imaging study: Technique: The patient was injected with 14.7 millicuries of technetium 99m Cardiolite and subsequently rest SPECT Cardiolite nuclear imaging was obtained in the horizontal long, vertical long, and short axis views. The patient underwent pharmacologic (Regadenoson) evaluation with a peak heart rate of 96 beats per minute (61% percent predicted maximal heart rate) and a resting blood pressure of 120/68 mmHg and a peak blood pressure of 122/68 mmHg. The patient was injected with 44.0 millicuries of technetium 99m Cardiolite and subsequently stress SPECT Cardiolite nuclear imaging was obtained in the horizontal long, vertical long, and short axis views. A gated Cardiolite study at peak stress was obtained. Interpretation: Rest and stress SPECT Cardiolite nuclear imaging status post realignment, normalization, and attenuation correction demonstrate at rest the appearance of diminished myocardial perfusion/tracer uptake in portions of the distal anterior/anteroapical segments which appears to normalize following stress. There is end systolic thickening and brightening. The gated Cardiolite study demonstrates myocardial thickening and inward wall motion. The reported LVEF is 58%. Impression: 1. Rest and stress SPECT current nuclear imaging demonstrate myocardial perfusion changes at rest which appeared to improve/normalize following stress appearing compatible with shifting soft tissue attenuation/artifact with no obvious myocardial perfusion changes considered diagnostic for associated stress-induced myocardial ischemia. 2. The gated Cardiolite study reports an LVEF of 58%. This note was generated with Dragon dictation software. It may contain incorrect words, spelling, and punctuation that were not noted in checking the note before signing.
== END | disposition home or self-care (01) ==
PROVIDERS: PCP Family Medicine; Visit Provider Internal Medicine Cardiovascular Disease
DX: I25.10 Atherosclerotic heart disease of native coronary artery without angina pectoris (principal); I48.92 Unspecified atrial flutter; R06.00 Dyspnea, unspecified; E78.00 Pure hypercholesterolemia, unspecified; I10 Essential (primary) hypertension; Z95.5 Presence of coronary angioplasty implant and graft
CPT/HCPCS: 78452; 93017; 93306; A9500; A4216; J2785

== ENCOUNTER → 2022-06-16 | Outpatient (CLI) | payer MEDICARE, OTHER, SELFPAY ==
[2022-06-16 15:56] LABS: Anion Gap 3 (5-15); BUN 15 mg/dL (7-18); Calcium,Total 8.9 mg/dL (8.5-10.1); Chloride 109 mmol/L (98-107); EST Glomerular Filtration Rate 80 mL/min (>60); Est Glom Filt Rate - Afr Amer 97 mL/min (>60); Glucose 103 mg/dL (74-106); Potassium 3.9 mmol/L (3.5-5.1); Sodium Level 142 mmol/L (136-145)
== END | disposition home or self-care (01) ==
LOC: LAB 14:32
PROVIDERS: PCP Family Medicine; Visit Provider Internal Medicine Cardiovascular Disease
DX: I48.92 Unspecified atrial flutter (principal); R06.00 Dyspnea, unspecified; I25.10 Atherosclerotic heart disease of native coronary artery without angina pectoris; Z95.5 Presence of coronary angioplasty implant and graft
CPT/HCPCS: 36415; 80048

== ENCOUNTER 2022-08-09 10:55 | Day surgery (SDC) | payer MEDICARE, OTHER, SELFPAY ==
--- NOTE | 2022-08-08 08:21 | PCM.HP.BLA ---
History and Physical Date of Admission: 08/09/22 [facility] [address] [place], [place] [address] OFFICE VISIT Date of Service:? 08/03/22 MR#: [id number] Acct: [id number] Name:JERO GUTIERREZ Rep #: [id number] : 1955 ? Provider: ?SARA Gooden Age/Sex:? 66/M Location: [facility] [place] Status: Signed HPI HPI History of Present Illness Surgical H&P: Yes Details: JERO GARZON, is a 66 year old white male who presents to the office today for a cardiovascular outpatient follow-up visit. He has a history of coronary artery disease status post PCI to his LAD in August 2012, pulmonary embolism after traveling and from PICC line, hypertension, hyperlipidemia, and DEENA with CPAP now with findings of atrial flutter. From a cardiac standpoint, the patient is doing well. He denies any palpitations. He does acknowledge daily chest heaviness which radiates to his left shoulder. He does have SOB with exertion-he states this is worsening. He denies Orthopnea, and PND. He does wear a CPAP nightly. He does not have bleeding issues; no blood in urine, stool or nosebleeds. He does acknowledge worsening fatigue. He does have myalgias-back. He denies claudication. He denies edema, or sudden weight gain. He does have dizziness/lightheadedness. He denies syncopal or near syncopal episodes, and headaches. Intake Vital Signs ? 08/03/2307:26 08/03/2307:26 Height 6 ft 5 in 6 ft 5 in Weight: 330 lb ? BMI 39.1 ? BP 136/76 H ? Blood Pressure Location Lt brachial ? Position Sitting ? Respiration 18 ? Pulse 65 ? Pulse Source Monitor ? Pulse Oximetry (%) 98 ? Intake Visit Reasons:?UPDATE H&P Horologist Apprentice Required: No Is patient in pain?: No Allergies Sulfa (Sulfonamide Antibiotics) Allergy (Verified 08/03/22 08:43) Unknown Medications multivitamin,op-bozx-qajkthjn 27 mg-0.4 mg tablet 1 tab PO DAILY supplement 12/10/13 [History Confirmed 08/03/22] albuterol sulfate 90 mcg/actuation aerosol inhaler 1 - 2 puff inhalation Q6H PRN PRN Asthma 07/08/19 [History Confirmed 08/03/22] esomeprazole magnesium 20 mg capsule,delayed release (Nexium) 40 mg PO DAILY 10/01/20 [History Confirmed 08/03/22] atorvastatin 20 mg tablet 20 mg PO QHS #90 tabs 11/19/20 [Rx Confirmed 08/03/22] aspirin 81 mg tablet,delayed release (Adult Aspirin Regimen) 81 mg PO DAILY #30 tabs 04/12/21 [Rx Confirmed 08/03/22] allopurinol 300 mg tablet 300 mg PO DAILY 10/20/21 [History Confirmed 08/03/22] potassium chloride 10 mEq tablet,extended release 20 meq PO DAILY 11/23/21 [History Confirmed 08/03/22] testosterone 4 pump transdermal DAILY 11/23/21 [History Confirmed 08/03/22] losartan 25 mg tablet 25 mg PO DAILY #90 tabs 03/03/22 [Rx Confirmed 08/03/22] amlodipine 5 mg tablet 5 mg PO DAILY htn #90 tabs 03/17/22 [Rx Confirmed 08/03/22] apixaban 5 mg tablet 5 mg PO BID #60 tabs 04/29/22 [Rx Confirmed 08/03/22] tamsulosin 0.4 mg capsule 0.4 mg PO DAILY 04/29/22 [History Confirmed 08/03/22] Nurse's Note: Per patient, no changes in medications. PFSH Medical History?(Reviewed 08/03/22 @ 08:44 by Aparna Gooden [employer]S SWEEPER OPERATOR, [employer] SWEEPER OPERATOR-C) Abnormal myocardial perfusion study Abnormal stress test Acute pyelonephritis Atherosclerotic heart disease of [place] coronary artery without angina pectoris BPH (benign prostatic hyperplasia) Claudication Confusion Dyspnea on exertion Essential hypertension Fibromyalgia GERD (gastroesophageal reflux disease) H/O percutaneous transluminal coronary angioplasty History of shingles HTN (hypertension) Obesity DEENA (obstructive sleep apnea) Prostate enlargement Pulmonary embolism Pure hypercholesterolemia Rectal bleeding Testosterone deficiency TIA (transient ischemic attack) Unstable angina UTI (urinary tract infection) Surgical History? History of arthroscopy of right knee History of back surgery History of laparoscopic cholecystectomy History of left heart catheterization (LHC) History of PTCA (~08/2012) History of repair of rotator cuff History of tonsillectomy and adenoidectomy History of transurethral resection of prostate Presence of coronary angioplasty implant and graft (~08/2012) Presence of stent in coronary artery (~08/2012) Spinal cord stimulator status (~05/2021) Family History? Mother CAD (coronary artery disease) Hypertension Hx of CABGFather Hypertension Myocardial infarctionGrandfather Myocardial infarction ?? ? paternalGrandmother Cancer ?? ? pancreatic CAGrandfather CAD (coronary artery disease) Social History? Smoking Status:? Former smoker quit date: 06/19/94 pack-years: 42 how long ago did patient quit smoking:? 1994 second hand exposure:? No alcohol intake:? current alcohol intake frequency: holidays/special occasions only Alcohol type: beer substance use type:? does not use caffeine:? Yes Type: carbonated beverages, coffee and tea what type of physical activity do you participate in:? none ROS Const Const: Positive for fatigue; Negative for weakness, fever(s), headache(s), chills, frequent falls, weight gain or weight loss Eyes Eyes: Negative for blind spots, loss of peripheral vision, transient loss of vision, blurry vision, change in vision, double vision, floaters or tunnel vision ENT ENT: Positive for dizziness; Negative for headache(s), Nosebleed/epistaxis, balance problems or neck pain Cardio Chest Pain: Yes Frequency: daily Character: other (heaviness-radiates to his left shoulder) Onset: at rest and exercise Location: left chest Duration: minutes Palpitations: No Edema: None Muscle aches with walking: None Resp Respiratory: Positive for SOB with activity (worsening); Negative for SOB at rest or SOB orthopnea\SOB lying down GI GI: Negative nausea, vomiting, heartburn, bloating, vomiting blood/hematemesis, bright, red blood in stools or black,tarry stools Musc Musc: Positive for muscle aches/ myalgia (back); Negative for muscle weakness, joint pain or balance problems Neuro Neuro: Positive for dizziness and lightheadedness; Negative for near syncope, syncope, orthostatic symptoms, frequent falls, headache(s), weakness, blurry vision or double vision Barrett Hematologic/Lymphatic: Negative for easy bleeding or easy bruising Endo Endo: Positive for fatigue Cardiology Exam Const Appearance: cooperative, healthy appearing, comfortable and no acute distress Nutritional Appearance: well nourished and obese Orientation: alert, awake and oriented x3 Head Head: normal to inspection Ears: hearing grossly normal bilaterally Nose: external nose normal Face and Sinus: face symmetric Eyes General: appearance normal, both eyes and all related structures Eyelids: eyelids normal EOM: EOM intact bilaterally Neck Neck: normal visual inspection and no JVD Carotids: normal carotid upstroke Chest Chest inspection: normal inspection of the chest, symmetric chest movement and normal respiratory effort; Negative cough Auscultation: Bilateral: Clear to Auscultation Cardio Rate: regular rate Rhythm: regular rhythm Heart sounds: S1 normal and S2 normal; Negative rub, gallop or murmur GI GI: normal to inspection and obese Neuro General: patient alert, patient awake, patient oriented x3 and CN's II-XI intact bilaterally Skin Skin: no rashes or lesions noted Extremities Pulses: Normal: Right Posterior Tibial Pulse, Left Posterior Tibial Pulse, Right Radial Pulse and Left Radial Pulse Lower Extremity Edema: +1: Bilateral (Right leg brace) Psych Psychological: normal affect Supplemental Info Supplemental Information Echocardiogram from 05/18/2022: Interpretation Summary The study was technically difficult. ? Left ventricular systolic function is normal. The estimated ejection fraction is 55 %. Mild concentric left ventricular hypertrophy. The left atrium is mildly enlarged. Mild focal mitral valve calcification of the posterior leaflet. Mild (1+) mitral valve insufficiency. Trivial tricuspid valve insufficiency. Trivial pulmonic valve insufficiency. Unable to estimate RV systolic pressure/pulmonary artery pressure due to technically difficult study. Unable to assess diastolic dysfunction. Echocardiogram from January 14, 2016 LV estimated ejection fraction of 65%, moderate concentric LVH, trivial mitral valve insufficiency, trivial tricuspid valve insufficiency, and mild pulmonic valve insufficiency. Stress Test Report Date: 05-18-2022 Procedure: Pharmacologic stress nuclear imaging study Indications: Atrial flutter; CAD; PCI; shortness of breath/dyspnea on exertion Consent: Per the patient Procedure: The patient underwent pharmacologic (Regadenoson 0.4mg ) evaluation with a peak heart rate of 96 beats per minute (61%predicted maximal heart rate) and a resting blood pressure of 120/68 mmHg and a peak blood pressure of 122/68 mmHg. The baseline ECG demonstrated atrial flutter.? The peak pharmacologic ECG demonstrated no obvious ECG changes. There was a rare PVC during recovery. There was no complaint of chest discomfort during pharmacologic infusion or recovery. The examination was discontinued secondary to completion of protocol. Impression: 1.? Pharmacologic (Regadenoson) evaluation 2.? Peak pharmacologic ECG with continued atrial flutter with no obvious ECG changes. 3.? There was a rare PVC during recovery. 4.? Nuclear images pending Myocardial perfusion imaging study: Technique: The patient was injected with 14.7 millicuries of technetium 99m Cardiolite and subsequently rest SPECT Cardiolite nuclear imaging was obtained in the horizontal long, vertical long, and short axis views. The patient underwent pharmacologic (Regadenoson) evaluation with a peak heart rate of 96 beats per minute (61% percent predicted maximal heart rate) and a resting blood pressure of 120/68 mmHg and a peak blood pressure of 122/68 mmHg. The patient was injected with 44.0 millicuries of technetium 99m Cardiolite and subsequently stress SPECT Cardiolite nuclear imaging was obtained in the horizontal long, vertical long, and short axis views.? A gated Cardiolite study at peak stress was obtained. Interpretation: Rest and stress SPECT Cardiolite nuclear imaging status post realignment, normalization, and attenuation correction demonstrate at rest the appearance of diminished myocardial perfusion/tracer uptake in portions of the distal anterior/anteroapical segments which appears to normalize following stress.? There is end systolic thickening and brightening.? The gated Cardiolite study demonstrates myocardial thickening and inward wall motion.? The reported LVEF is 58%. Impression: 1.? Rest and stress SPECT current nuclear imaging demonstrate myocardial perfusion changes at rest which appeared to improve/normalize following stress appearing compatible with shifting soft tissue attenuation/artifact with no obvious myocardial perfusion changes considered diagnostic for associated stress-induced myocardial ischemia. 2.? The gated Cardiolite study reports an LVEF of 58%. Heart catheterization from October 31, 2017 CONCLUSIONS Normal Left Ventricular End Diastolic Pressure Normal LV size, wall motion,and systolic function LVEF: by LV gram 60 % [place] Multivessel CAD (LAD: Proximal Stent: Patent) RECOMMENDATIONS Risk factor modification Medical therapy CORONARY ANGIOGRAPHY DOMINANCE:? Right Dominant LEFT HEART ASSESSMENT Left Ventricular Ejection Fraction: by LV Gram 60 % Normal LV wall motion Normal Left Ventricular End Diastolic Pressure LVEDP: 9 mmHg LEFT MAIN: Angiographically normal LEFT ANTERIOR DECENDING ARTERY: PROX LAD: Previously placed stent is patent DIAGONAL 1: Ostial - 10-25 % Stenosis CIRCUMFLEX ARTERY: Angiographically normal RIGHT CORONARY ARTERY: Diffuse: Eccentric: 10-25%? % Stenosis VALVE FINDINGS: Normal Aortic Valve function Normal Mitral Valve function AORTIC ROOT: Angiographically normal 24-hour Holter monitor from April 2022: Minimum heart rate 56 bpm. Average heart rate 80 bpm. Maximum heart rate 138 bpm. Ventricular ectopy 1.5%. Supraventricular ectopy 0.0%. Longest R to R interval 1.9 seconds. Atrial fibrillation/flutter 98.5%. The patient kept a diary and noted headaches, chest pain, shortness of breath, dizziness, shoulder pain, heart bouncing/pounding, and anxious which correlated with elevated heart rate and/or ectopy. Labs: ?? ? LDL Cholesterol 18 mg/dL (0-130) ?? ? HDL Cholesterol 27 mg/dL (40-) L ?? ? Triglycerides 139 mg/dL (-199) ?? ? VLDL Cholesterol 28 mg/dL (5-40) Diagnostics: ?? ? Electrocardiogram ? Echocardiogram ? Stress Echocardiogram ? Stress Test NM ? Stress Test ? Cardiac Catheterization ? Chest X-Ray ? Pulmonary: ?? ? Pulmonary Function Test ? Assessment and Plan Assessment and Plan (1) Atrial flutter: ?Status:?Acute ?Plan: Patient has a history of atrial flutter. His EKG from today demonstrates Atrial flutter, heart rate 64bpm. His Holter monitor from 04/2022 demonstrated 98.5% of atrial flutter. His echocardiogram from 05/18/2022 showed an ejection fraction of 55%, mild concentric LVH, and mildly enlarged left atrium.? His stress test on 05/18/2022 showed atrial flutter and was negative for ischemia. He continues to acknowledge ongoing symptoms which include chest discomfort, shortness of breath, fatigue, and lightheadedness/dizziness that may be related to his rhythm.? He will proceed with a cardioversion. Cardioversion instructions were reviewed with patient, and he voiced understanding. He will continue Eliquis 5mg twice daily. He will continue to monitor for any concerning symptoms of atiral flutter. (2) Presence of stent in coronary artery: ?Status:?Chronic ?Comment: PTCA/stent to LAD 08/29 ?Plan: Patient has a history of coronary artery disease with stent placement to his LAD in 2012. His most recent cardiac catheterization from 2018 demonstrated [place] multivessel CAD, and a patent stent in his LAD. His stress test from 05/18/22 was negative for ischemia. He does have complaints of chest discomfort. We will proceed with a cardioversion to see if this helps with his symptoms. Depending on symptoms and response to the cardioversion, further recommendations will be made. ? He will continue with his current medical therapy, along with monitoring for any concerning symptoms.? (3) Pure hypercholesterolemia: ?Status:?Chronic ?Plan: Patient has a history of hypercholesterolemia. His most recent lipid panel from 04/28/2022: cholesterol 73, HDL 27, LDL 18, triglycerides 139. He will continue atorvastatin 20mg daily, along with aggressive risk factor and lifestyle modifications. (4) Essential hypertension: ?Status:?Chronic ?Plan: Patient has a history of hypertension. His blood pressure is well controlled at this time. He will continue with his current medical therapy, along with monitoring his blood pressures at home. He will notify our office of any persistently elevated blood pressure readings. (5) Dyspnea: ?Status:?Acute ?Plan: Patient acknowledges worsening dyspnea on exertion. His echocardiogram from 05/18/2022 demonstrated an ejection fraction of 55%. He will proceed with cardioversion. This will help better assess if his dyspnea is related to his rhythm. We will continue to monitor. ? ? ? Orders: Orders 12 Lead EKG performed by [facility] Today I25.10 - Atherosclerotic heart disease of [place] coronary artery without angina pectoris, I48.92 - Unspecified atrial flutter ? Plan Details Additional Comments: Patient will follow 3 months, or sooner if needed. Thank you for allowing me to participate in the care of your patient. Please don't hesitate to call if any issues arise. This note was generated using a voice recognition system and there may be incorrect words, spelling, or punctuation that were not noted when reviewing the office note prior to saving. Portions of this documentation were copied and pasted from previous office visit notes to provide a cohesive continuity of the history. The note has been reviewed, edited, and updated, as necessary. Follow Up: ? ? 1 week post cardioversion on 08/09/2022 ? ? 3 Months (RO[employer]ARKING [employer]S SWEEPER OPERATOR/PA) COVID (Procedure Consent) Procedure Criteria Procedure Criteria: Yes Elective The surgeon/proceduralist and patient have discussed in detail the risk of exposure to and/or potential harm posed by the COVID-19 virus with having a surgery/procedure at this time versus the risk of? delaying the surgery/procedure. It is not possible to know either the risk of delaying the surgery or procedure or chance of getting an infection with perfect accuracy, but a joint decision was made between the patient and the surgeon/proceduralist ?to proceed at this time with the scheduled surgery/procedure as indicated on the consent form. Coding Level of Care Code Off vis,est,level 4 Diagnoses Atrial flutter? I48.92 Presence of stent in coronary artery? Z95.5 Pure hypercholesterolemia? E78.00 Essential hypertension? I10 Dyspnea? R06.00 Coding Level of Care Code Off vis,est,level 4 Diagnoses Atrial flutter? I48.92 Presence of stent in coronary artery? Z95.5 Pure hypercholesterolemia? E78.00 Essential hypertension? I10 Dyspnea? R06.00 08/03/22 1656 <Electronically signed by Aparna Gooden NP [employer]S SWEEPER OPERATOR-C> Date Aparna Gooden NP [employer] SWEEPER OPERATOR-C Cosigner Signature: Date (if applicable) CC:? Dr. Jagjit Myers MD ~ Assessment & Plan Addt'l Comments Addendum: 08/09/2022 I have examined the patient and the H&P has been reviewed. There are no clinical changes since date of exam. This note was generated using a voice recognition system and there may be incorrect words, spelling or punctuation that were not noted when reviewing the office note prior to saving.
[2022-08-08 11:05] VITALS: BMI 39.1
[2022-08-08 11:43] LABS: Anion Gap 4 (5-15); BUN 16 mg/dL (7-18); BUN/Creat Ratio 13.3 RATIO (10-20); Calcium,Total 9.4 mg/dL (8.5-10.1); Chloride 105 mmol/L (98-107); EST Glomerular Filtration Rate 65 mL/min (>60); Est Glom Filt Rate - Afr Amer 78 mL/min (>60); Estimated Creatinine Clearance 78.38 ml/min; Glucose 131 mg/dL (74-106); Potassium 3.9 mmol/L (3.5-5.1); Sodium Level 140 mmol/L (136-145)
--- NOTE | 2022-08-09 13:15 | CARDIOVERS ---
Cardioversion Cardioversion: Date: 08-09-2022 Procedure: Synchronized Biphasic DC Cardioversion Indications: Atrial flutter Consent: Per the Patient Anesthesia: per Dr. Wyatt of pulmonology and critical care medicine with propofol 100 mg IV push total Procedure: Synchronized Biphasic DC Cardioversion: 50 J x 1: Result: Sinus rhythm; PACs Complications: no apparent complications This note was generated with [employer] software. It may contain incorrect words, spelling, and punctuation that were not noted in checking the note before signing.
--- NOTE | 2022-08-09 13:45 | PRO.PCM_ITS ---
Procedure Report Date of Procedure: 08/09/22 CONSCIOUS SEDATION REPORT DATE OF SERVICE: August 09, 2022 BRIEF HISTORY OF PRESENT ILLNESS: The patient is a 66-year-old male who presented to [facility] for elective outpatient cardioversion due to underlying atrial flutter. The patient has never undergone a prior cardioversion. He denied any prior anesthetic complications. He does report a known history of asthma, which is mild and intermittent in nature. The patient also has a history of sleep apnea for which he reports compliance with the use of nocturnal Pap therapy. The patient is systemically anticoagulated on Eliquis. His last surface echocardiogram demonstrated an ejection fraction of approximately 55%. PHYSICAL EXAMINATION: VITAL SIGNS: Reviewed and were acceptable. GENERAL: The patient is an obese male, in no apparent distress, speaking in full sentences. HEENT: Normocephalic, atraumatic. Mucous membranes are moist and pink. Good mouth opening noted. Trachea is midline. Good neck mobility. CHEST: S1, S2 irregularly irregular. No murmurs, rubs or gallops were noted. LUNGS: Clear to auscultation bilaterally without appreciable wheezes, rales or rhonchi. ABDOMEN: Soft, nontender, nondistended. Positive bowel sounds. EXTREMITIES: There is no clubbing, cyanosis or edema. ASA Class: II DESCRIPTION OF PROCEDURE: After confirmation of informed consent, the patient's anesthesia plan was reviewed in detail. Propofol was chosen. Risks and benefits were reviewed and the patient agreed to proceed. At 1213, the patient was given his first bolus of propofol. In total, the patient required 100 mg of propofol to achieve an appropriate level of sedation, after which time, he was given a 50 joule synchronized cardioversion by Dr. Alfred at the bedside. This was successful in achieving normal sinus rhythm. The patient was monitored until 1224, at which time he reached his baseline mental status and function. The patient tolerated the procedure well. COMPLICATIONS: None ESTIMATED BLOOD LOSS: None RECOMMENDATIONS: Okay to recover in usual fashion. Procedures Pulmonary 9xxxx: [id number] Con Sedation
== END 2022-08-09 13:30 | disposition home or self-care (01) ==
LOC: CLSP 10:57
PROVIDERS: Nurse Practitioner Gerontology; PCP Family Medicine; Referring Provider Internal Medicine Cardiovascular Disease; Visit Provider Internal Medicine Cardiovascular Disease
DX: I48.92 Unspecified atrial flutter (principal); M79.10 Myalgia, unspecified site; E78.00 Pure hypercholesterolemia, unspecified; I49.3 Ventricular premature depolarization; I25.10 Atherosclerotic heart disease of native coronary artery without angina pectoris; I10 Essential (primary) hypertension; N40.0 Benign prostatic hyperplasia without lower urinary tract symptoms; G47.33 Obstructive sleep apnea (adult) (pediatric); E66.9 Obesity, unspecified; Z79.01 Long term (current) use of anticoagulants; Z79.82 Long term (current) use of aspirin; Z79.899 Other long term (current) drug therapy; Z87.891 Personal history of nicotine dependence; Z86.73 Personal history of transient ischemic attack (TIA), and 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 residual deficits; Z95.5 Presence of coronary angioplasty implant and graft
CPT/HCPCS: 36415; 80048; 92960; 93005; J7040

== ENCOUNTER 2022-10-21 08:30 | Outpatient (RCR) | payer MEDICARE, OTHER, BC, SELFPAY ==
--- NOTE | 2022-09-21 10:02 | HP.PTEVAL ---
Patient's Visit Information JERO GARZON is a 67 year old M referred to Physical Therapy by SARA Young with a diagnosis of DEGENERATION OF LUMBOSACRAL INTERVERTEBRAL DISC. Date of Evaluation: 09/21/22 Physical Therapist: Behzad Kuhn, PT, Cert MDT, OCS - Visit Plan Frequency: 2x /Week Duration: 4 Weeks Plan: PT INTERVETIONS GRADES POSTURAL EX'S ,DLS ,LE FLEXABILITY ,BLE STRENGTHENING AND ENDURANCE PROGRAM - Subjective This 67 y/o male presents to physical therapy with with lumbar pain. Patient has had lumbar pain 20years and lumbar surgery laminectomy DR Blackmon ~ 2 years. Patient has pain stimulator 2000. Patient major issue is wanting to get stronger . Patient has global pain . Aggravating factors any activity ,lifting ,bending ,standing and walking ,sitting. Alleviating laying on left side. prescribed Percocet. Patient has had epidural injection in past .. Patient plans to have injection September 28. Attempted to try to RTW but able. Coughing/sneezing-. Bowel/bladder -. C/O paresthesia/tingling. Patient has radicular symptom right > left. Patient pain affects sleeping. Patient has no recent diagnostics. Patient goals to get stronger and pain. SOCIAL: . VOCATION: Disability - Pain Bilateral Back Pain Intensity (Out of 10): 5 Pain Intensity Range: 10 Bilateral Lower Extremity Pain Intensity (Out of 10): 8 Pain Intensity Range: 10 - Objective POSTURE: mild forward posture ,hips/knees flexed. NEURO: c/o paresthesia/tingling bilateral legs ,reflexes L3-4 ,L4-5 ,L5-S1 1/3. SYMTTRIES: align. PALAPTION: tender LS. LUMBAR ROM: flexion mod loss ,extension severe loss ,side glides mod loss. FLEXABLITY: hamstrings mod tight. MMT: ( peak force) quads right 18.6 12.7 , hamstring right 12.8 right ,left 9.6 ,hip flexion left 0 ,right 12.9. FLEXABLITY: hamstrings mod tight - Special Tests L/S Slump test left side: Positive L/S Slump test right side: Positive L/S Left Straight Leg Raise: Positive L/S Right Straight Leg Raise: Positive - Balance/Special Test Scores Oswestry Low Back Score: 33 - Goals Goal 1:: Patient to be I with HEP Goal Time Frame: 4-6 Weeks Goal 2:: Patient improve peak force of quads/hams/hip by 5-10 to improve function and gait Goal Time Frame: 4-6 Weeks Goal 3:: Patient to demonstrate 50% improvement with improved function and less pain Goal Time Frame: 4-6 Weeks Goal 4:: Patient to improve lumbar ROM for function of recovery Goal Time Frame: 4-6 Weeks Goal 5:: Patient to improve back oswestry score by 5 points to improve QOL Goal Time Frame: 4-6 Weeks - Rehabilitation Potential Physical Therapy Diagnosis: Patient has lumbar pain and radicular symptoms in with pain ,poor lumbar ROM ,decrease strength impairs gait and function ,deconditioned. thus benefit from skilled PT Rehabilitation Potential: Fair - Anticipated Interventions Patient/Client Instruction: Educate patient on: Condition, Plan of Care For the Purpose of:: To decrease pain, To increase ROM, To improve muscle performance and motor function, To improve ability to perform ADL's, To improve performance and independence with ADL's, To improve ability of physical actions for home/community/work/leisure, To decrease soft tissue restriction, To increase flexibility/ROM Therapeutic Exercise to Include: Strength training, Endurance training, Balance training, Body mechanics, Postural training, Flexibilty training, Active ROM, Dynamic Lumbar Stabilization For the Purpose of:: To decrease pain, To increase ROM, To improve muscle performance and motor function, To improve ability to perform ADL's, To increase tolerance to activity/condition/position, To improve ability of physical actions for home/community/work/leisure, To improve health of tissue, To decrease soft tissue restriction, To increase flexibility/ROM, To improve endurance, To prevent re-injury TENS: Yes IF ES: Yes Cryotherapy (ice pack, ice massage): Yes Thermo therapy (hot pack): Yes Ultrasound (thermal/non thermal): Yes For the Purpose of:: To decrease pain, To increase ROM, To improve nutrient delivery to tissue, To increase oxygenation perfusion, To improve health of tissue, To decrease soft tissue restriction Thank you for the opportunity to evaluate your patient. For Medicare and Medicare HMO plans, please review the plan of care and approve it. It will need to be FAXED BACK to us at [phone] for Medicare purposes. For Medicare only, by signing this I certify the plan of care. Please let me know if there are questions or concerns regarding this plan of care. Physician Signature: Date:
--- NOTE | 2023-01-31 09:28 | HP.PTDCSUM ---
Discharge Summary D/C summary: It has been my pleasure to treat JERO GARZON referred by Jessica Caro NP-C, with the diagnosis of DEGENERATION OF LUMBOSACRAL INTERVERTEBRAL DISC for a total of 8 visit(s). Discharge Date: 10/21/22 Please see the following information for a summary of their discharge status. Subjective Subjective: Doing well .. doing ex's on own Pain Bilateral Back: Pain Intensity (Out of 10): 3 Bilateral Lower Extremity: Pain Intensity (Out of 10): 3 Overall Improvement % Improvement: 50 Objective Objective/Function: POSTURE: mild forward posture ,hips/knees flexed. NEURO: c/o paresthesia/tingling bilateral legs ,reflexes L3-4 ,L4-5 ,L5-S1 1/3. SYMTTRIES: align. LUMBAR ROM: flexion Min/mod loss ,extension min/mod loss ,side glides min loss. FLEXABLITY: hamstrings mod tight. MMT: ( peak force) quads right 60.2 .59.7 , hamstring right 42.8 right ,left 40.7,hip flexion left 31.7 ,right 38..9. FLEXABLITY: hamstrings mod tight Goals Goal 1:: Patient to be I with HEP Goal Progress: Goal Met Goal 2:: Patient improve peak force of quads/hams/hip by 5-10 to improve function and gait Goal Progress: Goal Met Goal 3:: Patient to demonstrate 50% improvement with improved function and less pain Goal Progress: Goal Met Goal 4:: Patient to improve lumbar ROM for function of recovery Goal Progress: Goal Met Goal 5:: Patient to improve back oswestry score by 5 points to improve QOL Goal Progress: Goal Met Plan Plan: D/C D/C Information Discharge Comments: gym program working out on own d/c sentence: If there are questions or concerns regarding this patient's physical therapy, please feel free to call me at [phone]. Thank you for the referral of this patient. Sincerely, Behzad Kuhn, PT, Cert MDT, OCS Balance/Gait/Functional tests Balance/Special Test Scores Oswestry Low Back Score: 1
== END 2022-10-21 19:00 | disposition home or self-care (01) ==
LOC: PT 08:30
PROVIDERS: PCP Family Medicine; Referring Provider Nurse Practitioner Acute Care; Visit Provider Nurse Practitioner Acute Care
DX: M51.37 Other intervertebral disc degeneration, lumbosacral region (principal)
CPT/HCPCS: 97110; 97162; 97530

== ENCOUNTER 2022-12-14 16:46 | Emergency (ER) | payer MEDICARE, BC, SELFPAY ==
[2022-12-14 16:47] VITALS: BP 123/61; PULSE 64; RESP 18; TEMP 36.2; O2SAT 100; BMI 38.0
--- NOTE | 2022-12-14 17:48 | EKG12_ITS ---
Test Reason : Blood Pressure : / mmHG Vent. Rate : 084 BPM Atrial Rate : 084 BPM P-R Int : 312 ms QRS Dur : 090 ms QT Int : 356 ms P-R-T Axes : 040 -46 072 degrees QTc Int : 420 ms Sinus rhythm with 1st degree A-V block with Premature atrial complexes Left anterior fascicular block Minimal voltage criteria for LVH, may be normal variant ( R in aVL ) Abnormal ECG Confirmed by ELENA CONTI, SUNG ([id number]), newspaper editor LATISHA HECK ([id number]) on 12/15/2022 10:42:47 AM Referred By: Confirmed By:SUNG PARKER MD
--- NOTE | 2022-12-14 17:49 | CT_ITS ---
INDICATION: pyelonephritis EXAMINATION: CT ABDOMEN AND PELVIS WITHOUT CONTRAST - CT Abdomen And Pelvis W/O Contrast Injection TECHNIQUE: Helically acquired images were obtained of the abdomen and pelvis without oral or IV contrast. A radiation dose optimization technique was used for this scan. IV Contrast dosage and agent: None. Oral contrast: None. RADIATION DOSAGE (If Supplied By Facility): CTDIvol = ( 23.40 ) mGy, DLP = ( 1508.26 ) mGycm COMPARISON: FINDINGS: LOWER CHEST: Small consolidations are noted at the left lung base.. No cardiomegaly or pericardial effusion. LIVER: There is a 1.2 cm hypodensity in the right lobe of the liver likely representing a cyst. Liver appears otherwise unremarkable. No focal mass. GALLBLADDER AND BILIARY TREE: Gallbladder is not well-visualized. No intra- or extrahepatic biliary ductal dilation. PANCREAS: No focal cystic or solid mass. SPLEEN: Normal size without focal cystic or solid mass. ADRENAL GLANDS: There is an indeterminate 2.1 cm left adrenal lesion. This finding appears stable when compared to January 12, 2021. KIDNEYS AND URETERS: There is a 5 cm cyst in the lower pole of the right kidney. There is no evidence for hydronephrosis. Evaluation of the kidneys is limited without IV contrast. No hydronephrosis. PERITONEUM: No ascites or free air. No other fluid collection. BOWEL: Appendix is not well visualized although no inflammation is noted in the right lower quadrant. No stomach or bowel distension. No focal inflammatory change. There is sigmoid diverticulosis without evidence for acute diverticulitis. LYMPH NODES: No enlarged mesenteric or retroperitoneal lymph nodes. VESSELS: Aorta is non-dilated. URINARY BLADDER: Evaluation is limited secondary to under distention. REPRODUCTIVE ORGANS: Prostate appears enlarged and impinging the posterior wall of the urinary bladder. A implant device is identified. ABDOMINAL WALL: No discrete abdominal or pelvic wall hernia. BONES: No lytic or blastic abnormality. CT/Abdomen/Pelvis without Cont IMPRESSION: Stable indeterminate left adrenal lesion. MRI may be helpful for further characterization. Right renal cyst and liver cyst. Small consolidation at the left lung base. Clinical correlation recommended. Diverticulosis. Evaluation of the kidneys is limited without IV contrast. Electronically Signed: Robby Raymond, at 19:13 EDT ,
--- NOTE | 2022-12-14 17:50 | EDS_ITS ---
HPI History of Present Illness Chief Complaint: Weakness Detail of Chief Complaint: Weakness, fever, UTI Informant: patient Narrative Narrative: Patient presents with Dr. Myers's office secondary to UTI and weakness. He reported is not been feeling well for the past couple days and had a fever at home. He reported was found to have a UTI at Dr. Myers's office but due to generalized weakness and history of prostate infection pyelonephritis was sent to the ER. Patient reports poor appetite and p.o. intake. He has mild shortness of breath but no significant cough. He does complain of suprapubic abdominal pain as well as flank pain. [facility] Medical History Abnormal myocardial perfusion study Abnormal stress test Acute pyelonephritis Atherosclerotic heart disease of [place] coronary artery without angina pectoris BPH (benign prostatic hyperplasia) Claudication Confusion Dyspnea on exertion Essential hypertension Fibromyalgia GERD (gastroesophageal reflux disease) H/O percutaneous transluminal coronary angioplasty History of shingles HTN (hypertension) Obesity DEENA (obstructive sleep apnea) Prostate enlargement Pulmonary embolism Pure hypercholesterolemia Rectal bleeding Testosterone deficiency TIA (transient ischemic attack) Unstable angina UTI (urinary tract infection) Home Medications multivitamin,[id number] 27 mg-0.4 mg tablet 1 tab PO DAILY supplement 12/10/13 [History Last Taken 02/29/20] albuterol sulfate 90 mcg/actuation aerosol inhaler 1 - 2 puff inhalation Q6H PRN PRN Asthma 07/08/19 [History Last Taken 02/08/20] esomeprazole magnesium 20 mg capsule,delayed release (Nexium) 40 mg PO DAILY 10/01/20 [History Last Taken Unknown] atorvastatin 20 mg tablet 20 mg PO QHS #90 tabs 11/19/20 [Rx Last Taken Unknown] allopurinol 300 mg tablet 300 mg PO DAILY 10/20/21 [History Last Taken Unknown] potassium chloride 10 mEq tablet,extended release 20 meq PO DAILY 11/23/21 [History Last Taken Unknown] testosterone 4 pump transdermal DAILY 11/23/21 [History Last Taken Unknown] losartan 25 mg tablet 25 mg PO DAILY #90 tabs 03/03/22 [Rx Last Taken 08/09/22] tamsulosin 0.4 mg capsule 0.4 mg PO DAILY 04/29/22 [History Last Taken Unknown] amlodipine 5 mg tablet 5 mg PO DAILY htn #90 tabs 09/06/22 [Rx Last Taken Unknown] aspirin 325 mg tablet,delayed release 81 mg (0.2492 x 325 mg) PO DAILY #90 tabs 11/07/22 [Rx Last Taken Unknown] nitrofurantoin monohydrate/macrocrystals 100 mg capsule (Macrobid) 100 mg PO BID 7 days #14 caps 12/14/22 [Rx Last Taken Unknown] potassium chloride 20 mEq tablet,extended release 40 meq (2 x 20 mEq) PO DAILY #8 tabs 12/14/22 [Rx Last Taken Unknown] Allergy/AdvReac Type Severity Reaction Status Date / Time Sulfa (Sulfonamide Allergy Unknown Verified 11/07/22 09:59 Antibiotics) Family History Mother CAD (coronary artery disease) Hypertension Hx of CABG Father Hypertension Myocardial infarction Grandfather Myocardial infarction paternal Grandmother Cancer pancreatic CA Grandfather CAD (coronary artery disease) Surgical History History of arthroscopy of right knee History of back surgery History of laparoscopic cholecystectomy History of left heart catheterization (LHC) History of PTCA (~08/2012) History of repair of rotator cuff History of tonsillectomy and adenoidectomy History of transurethral resection of prostate Presence of coronary angioplasty implant and graft (~08/2012) Presence of stent in coronary artery (~08/2012) Spinal cord stimulator status (~05/2021) Social History Smoking Status: Former smoker quit date: 06/19/94 pack-years: 42 how long ago did patient quit smokin second hand exposure: No alcohol intake: current alcohol intake frequency: holidays/special occasions only Alcohol type: beer substance use type: does not use caffeine: Yes Type: carbonated beverages, coffee and tea what type of physical activity do you participate in: none ROS ROS ED Constitutional Constitutional ED: Reports fever(s) Eyes Eyes: Denies change in vision or discharge from eye(s) ENT ENT ED: Denies discharge from eye(s), rhinorrhea or sore throat Cardiovascular Cardiovascular: Denies chest pain or palpitations Respiratory/Chest Respiratory/Chest: Reports dyspnea; Denies cough Gastrointestinal Gastrointestinal: Reports abdominal pain; Denies diarrhea, nausea or vomiting Genitourinary Genitourinary ED: Reports dysuria Musculoskeletal Musculoskeletal: Reports back pain; Denies extremity pain Integumentary Denies Abrasions or rash Neurologic Neurologic: Denies headache(s) or weakness Psychiatric Psychiatric: Denies anxiety or depression Allergic/Immunologic Allergic/Immunologic ED: Denies lip swelling or urticaria EXAM Physical Exam Const Vital Signs: 12/14/22 16:47 12/14/22 17:20 12/14/22 16:47 Temperature 97.1 F L 97.1 F L Temperature Source Temporal Temporal Pulse Rate 64 64 Respiratory Rate 18 18 Respiratory Effort Normal Non-Labored Respiratory Pattern Normal Blood Pressure 123/61 H 123/61 H Blood Pressure Mean 81 81 Pulse Ox 100 100 Oxygen Delivery Method Room Air Room Air 12/14/22 18:36 Temperature Temperature Source Pulse Rate Respiratory Rate Respiratory Effort Respiratory Pattern Blood Pressure Blood Pressure Mean Pulse Ox 98 Oxygen Delivery Method Room Air Positive well nourished and well developed General Appearance ED: well developed HEENT Reports normocephalic and head/scalp atraumatic Eyes PERRL and EOMs intact bilaterally Neck supple Chest Wall inspection of chest normal and palpation of chest normal Resp normal respiratory effort and clear to auscultation bilaterally Cardio regular rate and regular rhythm GI GI Narrative: Mild suprapubic tenderness to palpation. Palpation: soft Extremity normal to inspection Neuro oriented x3 and no sensory deficits noted Neuro Narrative: No focal neurologic deficits. Sensorium / Orientation: alert Motor Exam: strength 5/5 throughout Psych mental status grossly normal Skin no rashes or lesions noted MDM MDM MDM Narrative Medical decision making narrative: Sepsis work-up was initiated. Blood and urine cultures are sent. Labwork obtained to evaluate for leukocytosis, anemia, and electrolyte derangement. Urinalysis obtained to evaluate for infection/hematuria. Chest x-ray obtained to evaluate for acute lung pathology, cardiac size, or mediastinal abnormality. Given the patient's UTI and back pain a CT flank was obtained. Patient was given Tylenol for fever. Patient is given a dose of IV Rocephin. Lab Data Attestation: I reviewed the patient's lab results. Labs: Laboratory Results - last 24 hr 12/14/22 12/14/22 12/14/22 17:18 17:59 18:25 WBC 15.8 H RBC 5.18 Hgb 15.7 Hct 46.7 MCV 90.2 MCH 30.3 MCHC 33.6 RDW Std Deviation 43.7 RDW Coeff of Lito 13.3 Plt Count 138 L MPV 11.9 Immature Gran % (Auto) 0.600 Neut % (Auto) 85.4 H Lymph % (Auto) 6.8 L [place] % (Auto) 6.9 Eos % (Auto) 0.1 Baso % (Auto) 0.2 Absolute Neuts (auto) 13.5 H Absolute Lymphs (auto) 1.07 Nucleated RBC % 0 PT 14.5 INR 1.1 APTT 34.2 Sodium 138 Potassium 3.0 L Chloride 105 Carbon Dioxide 28.0 Anion Gap 5 BUN 15 Creatinine 1.35 H Estim Creat Clear Calc 68.75 Est GFR (MDRD) Af Amer 68 Est GFR (MDRD) Non-Af 56 L BUN/Creatinine Ratio 11.1 Glucose 100 Lactic Acid 1.4 Calcium 8.8 Total Bilirubin 2.30 H AST 10 L ALT 25 Alkaline Phosphatase 79 Total Protein 7.1 Albumin 3.5 Globulin 3.6 Albumin/Globulin Ratio 1.0 Urine Color Kath Urine Clarity Cloudy Urine pH 6.0 Ur Specific [place] 1.020 Urine Protein 100 H Urine Glucose (UA) Normal Urine Ketones 15 H Urine Occult Blood 250 H Urine Nitrite Positive H Urine Bilirubin 3 H Urine Urobilinogen 4 H Ur Leukocyte Esterase 500 H Urine RBC 50-100 SEEN Urine WBC >100 SEEN Ur Squamous Epith Cells 0-5 SEEN Ur Transition Epith Cell 0-5 SEEN Urine Bacteria 1+ Urine Mucus 0 SEEN Radiography Diagnostic Testing: Clinical Impression(s) from Imaging Studies Abdomen/Pelvis CT 12/14/22 17:49 IMPRESSION: Stable indeterminate left adrenal lesion. MRI may be helpful for further characterization. Right renal cyst and liver cyst. Small consolidation at the left lung base. Clinical correlation recommended. Diverticulosis. Evaluation of the kidneys is limited without IV contrast. Electronically Signed: Robby Raymond, at 19:13 EDT , Chest X-Ray 12/14/22 18:52 IMPRESSION: Small consolidation at the left lung base. Otherwise no radiographic evidence of acute cardiopulmonary disease. Electronically Signed: Robby Raymond, at 19:06 EDT Reading Location ID and State: [facility] / [place] Tel , Service support , EKG Initial EKG: Attestation: I personally reviewed and interpreted this EKG as follows: Interpretation: Sinus Rhythm (Sinus rhythm 84 bpm with first-degree AV block. No acute ischemia.) Treatment and Re-Evaluation :: CBC was a white count of 15.8 with 85% neutrophils. Hemoglobin is normal at 15.7. Chemistry studies reveal a BUN of 15 and creatinine 1.35, only slightly elevated over baseline. Potassium is low at 3.0 and this is replaced orally. Lactic acid is normal at 1.4. LFTs are significant only for total bili of 2.3 but other LFTs are all normal. Patient has no tenderness in the right upper q uadrant. Urinalysis does reveal infection with 1+ bacteria and greater than 100 white cells. Nitrites are positive. Chest x-ray per my interpretation reveals a small area of atelectasis but no focal infiltrate. Radiology interpretation is reviewed and agrees. CT flank obtained reveals a stable left adrenal lesion and a right renal cyst and liver cyst. Test results are discussed with patient and son at bedside. Patient is hemodynamically stable with a normal lactic acid. I did review his prior urine cultures. He has been resistant to Cipro in the past and he has an allergy to sulfa. He has been sensitive to Macrobid and I will treat him with this. I will write him for days of potassium replacement. Return instructions were provided. Discharge Plan Triage Chief Complaint: Weakness ED Provider: Vee Horton Dx/Rx/DC Orders Clinical Impression: UTI (urinary tract infection), Hypokalemia Instructions: ED Hypokalemia, ED Bladder Infection, Male (Adult) Prescriptions: New nitrofurantoin monohyd/m-cryst [Macrobid] 100 mg capsule 100 mg PO BID 7 Days Qty: 14 0RF Rx Instructions: must administer with a meal/food potassium chloride 20 mEq tablet extended release 40 meq PO DAILY Qty: 8 0RF No Action esomeprazole magnesium [Nexium] 20 mg capsule,delayed release(DR/EC) 40 mg PO DAILY allopurinol 300 mg tablet 300 mg PO DAILY tamsulosin 0.4 mg capsule 0.4 mg PO DAILY testosterone 20.25 mg/1.25 gram (1.62 %) gel in metered-dose pump 4 pump transdermal DAILY Patient Comments: APPLY 4 PUMPS DAILY potassium chloride 10 mEq tablet extended release 20 meq PO DAILY aspirin 325 mg tablet,delayed release (DR/EC) 81 mg PO DAILY Qty: 90 0RF multivitamin,bj-pmfr-kbhodkft 1 TABLET tablet 1 tab PO DAILY Patient Comments: vitamin albuterol sulfate 1 INHALER inhaler 1 - 2 puff INHALATION Q6H PRN PRN (Reason: Asthma) atorvastatin 20 mg tablet 20 mg PO QHS Qty: 90 3RF losartan 25 mg tablet 25 mg PO DAILY Qty: 90 3RF amlodipine 5 mg tablet 5 mg PO DAILY Qty: 90 3RF Primary Care Provider: Jagjit Myers Referrals: Jagjit Myers MD [Primary Care Provider] - 5-7 Days Disposition Disposition: Home, Self Care
[2022-12-14 18:10] LABS: Absolute Lymphocyte Count 1.07 X10^3/uL (0.83-4.51); Absolute Neutrophil Count 13.5 X10^3/uL (2.0-7.7); Basophil# 0.03 X10^3/uL; Basophil% 0.2 % (0-1); Eosinophil# 0.01 X10^3/uL; Eosinophils% 0.1 % (0-5); Hematocrit 46.7 % (40-54); Hemoglobin 15.7 g/dL (13.0-16.5); Lymphocyte # 1.07 X10^3/ul (0.83-4.51); Lymphocyte % 6.8 % (19-41); Mean Corp Hgb Conc 33.6 g/dL (32-36); Mean Corpuscular Hgb 30.3 pg (27.0-32.0); Mean Corpuscular Volume 90.2 fL (80-94); Mean Platelet Vol. 11.9 fl (6.2-12.0); Monocyte# 1.09 X10^3/uL; Monocyte% 6.9 % (0-10); NRBC Flagged by Analyzer 0 % (0-5); Neutrophil # 13.46 X10^3/uL (2.7-7.7); Neutrophil % 85.4 % (47-70); Platelet Count 138 K/mm3 (150-450); RBC Distribution Width CV 13.3 % (11.6-14.6); RBC Distribution Width SD 43.7 fl (35.1-43.9); Red Blood Count 5.18 M/mm3 (4.6-6.2); White Blood Count 15.8 K/mm3 (4.4-11.0)
[2022-12-14 18:22] LABS: International Normalized Ratio 1.1; Prothrombin Time (Protime)PT. 14.5 SECONDS (11.7-14.9)
[2022-12-14] MEDS: Acetaminophen 500 MG Tablet 1000 MG PO (18:22)
[2022-12-14 18:23] LABS: Partial Thromboplast Time 34.2 Seconds (24.1-36.2)
[2022-12-14] MEDS: 0.9% Normal Saline 1,000 ML 999 ML IV (18:24)
[2022-12-14 18:27] LABS: AST(SGOT) 10 U/L (15-37); Alanine Aminotransfer ALT/SGPT 25 U/L (16-61); Albumin, Serum 3.5 g/dL (3.2-5.0); Alkaline Phosphatase 79 U/L (45-117); Anion Gap 5 (5-15); BUN 15 mg/dL (7-18); BUN/Creat Ratio 11.1 RATIO (10-20); Calcium,Total 8.8 mg/dL (8.5-10.1); Chloride 105 mmol/L (98-107); Creatinine, Serum 1.35 mg/dL (0.70-1.30); EST Glomerular Filtration Rate 56 mL/min (>60); Est Glom Filt Rate - Afr Amer 68 mL/min (>60); Estimated Creatinine Clearance 68.75 ml/min; Globulin 3.6 g/dL (2.2-4.2); Glucose 100 mg/dL (74-106); Protein, Total 7.1 g/dL (6.4-8.2); Sodium Level 138 mmol/L (136-145)
[2022-12-14] MEDS: Ceftriaxone 1 GM/50 ML BAG IV (18:32)
[2022-12-14 18:36] VITALS: O2SAT 98
[2022-12-14 18:37] LABS: Lactic Acid 1.4 mmol/L (0.4-1.9)
[2022-12-14 18:38] LABS: Mucous, Urine 0 SEEN /hpf (<or=2+)
[2022-12-14 18:43] LABS: Color, Urine Amber (Yellow); Glucose, Dipstick Normal (Normal); Ketone-Dipstick 15 mg/dl (Negative); Leukocyte Esterase-Dipstick 500 /ul (Negative); Nitrite-Dipstick Positive (Negative); Occult Blood-Urine 250 /ul (Negative); Protein-Dipstick 100 mg/dl (Negative); Urine Clarity Cloudy (Clear); Urine Urobilinogen 4 mg/dl (Normal)
[2022-12-14 18:49] LABS: Urine Bilirubin Dipstick 3 mg/dL (Negative); White Blood Cells >100 SEEN /hpf (0-5)
[2022-12-14 18:50] LABS: Bacteria 1+ /hpf (None Seen); Red Blood Cells-Urine 50-100 SEEN /hpf (0-5); Squamous Epithelial Cells - UA 0-5 SEEN /hpf (0-5)
[2022-12-14 18:51] LABS: Transitional Epithelial - Ur 0-5 SEEN /hpf (0-5)
--- NOTE | 2022-12-14 18:52 | RAD_ITS ---
INDICATION: fever, sob EXAMINATION/TECHNIQUE: X-RAY - XR Chest 1 View COMPARISON: FINDINGS: LINES/DEVICES: None. LUNGS: Small consolidation is noted at the left lung base. Remaining lungs are clear. MEDIASTINUM AND CARDIOVASCULAR STRUCTURES: Cardiac silhouette not enlarged. Central airways and mediastinal contour are unremarkable. BONES AND SOFT TISSUES: Unremarkable. RAD/Chest 1 View (Portable) IMPRESSION: Small consolidation at the left lung base. Otherwise no radiographic evidence of acute cardiopulmonary disease. Electronically Signed: Robby Raymond, at 19:06 EDT ,
[2022-12-14] MEDS: Potassium Chloride Oral Tablet 20 MEQ 40 MEQ PO (19:32)
[2022-12-14 19:51] VITALS: BP 132/74; PULSE 83; RESP 18; TEMP 36.9; O2SAT 97
[2022-12-14 20:51] VITALS: BP 136/70; PULSE 78; RESP 16; TEMP 36.9; O2SAT 97
== END 2022-12-14 20:56 | disposition home or self-care (01) ==
PROVIDERS: Emergency Provider Emergency Medicine; PCP Family Medicine; Visit Provider Emergency Medicine
DX: E87.6 Hypokalemia (principal); N39.0 Urinary tract infection, site not specified; Z87.891 Personal history of nicotine dependence; E78.00 Pure hypercholesterolemia, unspecified; I25.10 Atherosclerotic heart disease of native coronary artery without angina pectoris; I10 Essential (primary) hypertension; K21.9 Gastro-esophageal reflux disease without esophagitis; Z79.899 Other long term (current) drug therapy; N40.0 Benign prostatic hyperplasia without lower urinary tract symptoms; Z90.49 Acquired absence of other specified parts of digestive tract; Z95.5 Presence of coronary angioplasty implant and graft
CPT/HCPCS: 99285; 71045; 74176; 80053; 81001; 83605; 85025; 85610; 85730; 87040; 87077; 87086; 87088; 93005; J7030; A4216

== ENCOUNTER 2022-12-15 18:53 | Inpatient (IN) | payer MEDICARE, OTHER, BC, SELFPAY ==
[2022-12-15 18:54] VITALS: BP 140/69; PULSE 98; RESP 24; TEMP 36.6; O2SAT 98; BMI 38.8
[2022-12-15 19:07] VITALS: BP 140/69; PULSE 98; RESP 24; TEMP 37.2; O2SAT 98
--- NOTE | 2022-12-15 19:31 | EX.ED.DYSGE1 ---
HPI History of Present Illness Chief Complaint: Fever Informant: patient Onset/Context/Timing Onset: Days (3) Context: Gradual Onset Timing: Continuous Quality: Aching Location: Generalized Worsened by: Nothing Relieved by: Tylenol Narrative Narrative: Patient presents with a fever that began 2 days ago. Patient was seen here yesterday and diagnosed with a urinary tract infection and questionable pneumonia. Patient states his fever was up to 104 at home today. Patient states he had an episode of shaking chills earlier today. Patient admits to some dysuria. Patient denies any urinary frequency. Patient denies any hematuria. Patient states he has been taking Tylenol which has been helping with his fever. Patient admits to general body aches and some sweats. Patient admits to a mild cough but denies any sputum production. Patient states he does have some pain in his chest when he takes deep breaths. [facility] Medical History Abnormal myocardial perfusion study Abnormal stress test Acute pyelonephritis Atherosclerotic heart disease of [place] coronary artery without angina pectoris BPH (benign prostatic hyperplasia) Claudication Confusion Dyspnea on exertion Essential hypertension Fibromyalgia GERD (gastroesophageal reflux disease) H/O percutaneous transluminal coronary angioplasty History of shingles HTN (hypertension) Obesity DEENA (obstructive sleep apnea) Prostate enlargement Pulmonary embolism Pure hypercholesterolemia Rectal bleeding Testosterone deficiency TIA (transient ischemic attack) Unstable angina UTI (urinary tract infection) Home Medications multivitamin,il-glym-xzleskou 27 mg-0.4 mg tablet 1 tab PO DAILY supplement 12/10/13 [History Last Taken 02/29/20] albuterol sulfate 90 mcg/actuation aerosol inhaler 1 - 2 puff inhalation Q6H PRN PRN Asthma 07/08/19 [History Last Taken 02/08/20] esomeprazole magnesium 20 mg capsule,delayed release (Nexium) 40 mg PO DAILY 10/01/20 [History Last Taken Unknown] atorvastatin 20 mg tablet 20 mg PO QHS #90 tabs 11/19/20 [Rx Last Taken Unknown] allopurinol 300 mg tablet 300 mg PO DAILY 10/20/21 [History Last Taken Unknown] potassium chloride 10 mEq tablet,extended release 20 meq PO DAILY 11/23/21 [History Last Taken Unknown] testosterone 4 pump transdermal DAILY 11/23/21 [History Last Taken Unknown] losartan 25 mg tablet 25 mg PO DAILY #90 tabs 03/03/22 [Rx Last Taken 08/09/22] tamsulosin 0.4 mg capsule 0.4 mg PO DAILY 04/29/22 [History Last Taken Unknown] amlodipine 5 mg tablet 5 mg PO DAILY htn #90 tabs 09/06/22 [Rx Last Taken Unknown] aspirin 325 mg tablet,delayed release 81 mg (0.2492 x 325 mg) PO DAILY #90 tabs 11/07/22 [Rx Last Taken Unknown] nitrofurantoin monohydrate/macrocrystals 100 mg capsule (Macrobid) 100 mg PO BID 7 days #14 caps 12/14/22 [Rx Last Taken Unknown] potassium chloride 20 mEq tablet,extended release 40 meq (2 x 20 mEq) PO DAILY #8 tabs 12/14/22 [Rx Last Taken Unknown] Allergy/AdvReac Type Severity Reaction Status Date / Time Sulfa (Sulfonamide Allergy Unknown Verified 12/15/22 18:54 Antibiotics) Family History Mother CAD (coronary artery disease) Hypertension Hx of CABG Father Hypertension Myocardial infarction Grandfather Myocardial infarction paternal Grandmother Cancer pancreatic CA Grandfather CAD (coronary artery disease) Surgical History History of arthroscopy of right knee History of back surgery History of laparoscopic cholecystectomy History of left heart catheterization (LHC) History of PTCA (~08/2012) History of repair of rotator cuff History of tonsillectomy and adenoidectomy History of transurethral resection of prostate Presence of coronary angioplasty implant and graft (~08/2012) Presence of stent in coronary artery (~08/2012) Spinal cord stimulator status (~05/2021) Social History Smoking Status: Former smoker quit date: 06/19/94 pack-years: 42 how long ago did patient quit smokin second hand exposure: No alcohol intake: current alcohol intake frequency: holidays/special occasions only Alcohol type: beer substance use type: does not use caffeine: Yes Type: carbonated beverages, coffee and tea what type of physical activity do you participate in: none ROS ROS ED Constitutional Constitutional ED: Reports chills, fever(s) and sweats Eyes Eyes: Reports blurry vision; Denies diplopia ENT ENT ED: Denies rhinorrhea or sore throat Cardiovascular Cardiovascular: Reports chest pain; Denies palpitations Respiratory/Chest Respiratory/Chest: Reports cough; Denies dyspnea Gastrointestinal Gastrointestinal: Reports nausea; Denies vomiting Genitourinary Genitourinary ED: Reports dysuria; Denies hematuria Musculoskeletal Musculoskeletal: Reports myalgias; Denies back pain or neck pain Integumentary Reports rash; Denies abscess Neurologic Neurologic: Reports headache(s); Denies weakness Allergic/Immunologic Allergic/Immunologic ED: Denies mouth swelling or urticaria EXAM Physical Exam Const Vital Signs: 12/15/22 18:54 12/15/22 19:07 12/15/22 19:07 Temperature 98 F 99 F Temperature Source Temporal Oral Pulse Rate 98 98 Respiratory Rate 24 H 24 H Respiratory Effort Normal Respiratory Pattern Normal Blood Pressure 140/69 H 140/69 H Blood Pressure Mean 92 92 Pulse Ox 98 98 Oxygen Delivery Method Room Air 12/15/22 21:01 Temperature 101.8 F H Temperature Source Oral Pulse Rate Respiratory Rate Respiratory Effort Respiratory Pattern Blood Pressure Blood Pressure Mean Pulse Ox Oxygen Delivery Method Positive well nourished and well developed General Appearance ED: well developed and NAD HEENT Reports moist mucous membranes Neck supple and no JVD Resp normal respiratory effort Auscultation: diminished lung sounds bilateral lower Cardio regular rate and regular rhythm GI normal to inspection, nondistended, normoactive bowel sounds and non-tender Palpation: soft Extremity normal to inspection General Extremety ED: Negative for edema or tenderness General Extremity: Negative for edema Neuro oriented x3, CN's II-XII intact bilaterally and no sensory deficits noted Sensorium / Orientation: alert Motor Exam: strength 5/5 throughout Psych mental status grossly normal MDM MDM MDM Narrative Medical decision making narrative: Differential diagnosis includes sepsis, pneumonia, urinary tract infection, and pyelonephritis. CBC will be obtained to assess for leukocytosis and anemia. Comprehensive metabolic profile will be obtained to assess for hepatic function, renal function, and electrolyte abnormality. Serum lactate will be obtained to assess for sepsis. PT was INR and PTT will be obtained to assess for coagulopathy. Chest x-ray will be obtained to assess for pneumonia. COVID-19 rapid antigen will be obtained to assess for COVID infection. Influenza A and influenza B antigens will be obtained to assess for influenza infection. Blood and urine cultures were obtained yesterday. These will not be repeated. History & Record Review Additional record(s) reviewed:: Prior ED visit and Prior labs Lab Data Lab results narrative: Urine culture from yesterday was reviewed. It grew out gram-negative rods that were lactose fermenting. This is likely E. coli. Sensitivities are still pending. Blood cultures are still pending. CBC was reviewed. White blood cell count was low at 4.3. Platelets were low at 87. These are both decreased from yesterday's results. Comprehensive metabolic profile was reviewed. Creatinine was slightly elevated at 1.36. This was consistent with yesterday's result. Total bilirubin was 1.4. This was improved compared to yesterday. PT with INR and PTT were reviewed and were essentially within normal limits. Lactate was reviewed and was normal at 1.7. Labs: Laboratory Results - last 24 hr 12/15/22 19:55 WBC 4.3 L RBC 4.61 Hgb 14.4 Hct 41.1 MCV 89.2 MCH 31.2 MCHC 35.0 RDW Std Deviation 43.3 RDW Coeff of Lito 13.2 Plt Count 87 L MPV 11.6 Immature Gran % (Auto) 0.500 Neut % (Auto) 90.2 H Lymph % (Auto) 4.4 L Taylor % (Auto) 4.0 Eos % (Auto) 0.7 Baso % (Auto) 0.2 Absolute Neuts (auto) 3.9 Absolute Lymphs (auto) 0.19 L Nucleated RBC % 0 Differential Comment SCANNED PT 14.9 INR 1.2 APTT 32.2 Sodium 135 L Potassium 3.3 L Chloride 105 Carbon Dioxide 21.0 Anion Gap 9 BUN 17 Creatinine 1.36 H Estim Creat Clear Calc 68.24 Est GFR (MDRD) Af Amer 68 Est GFR (MDRD) Non-Af 56 L BUN/Creatinine Ratio 12.5 Glucose 131 H Lactic Acid 1.7 Calcium 8.6 Total Bilirubin 1.40 H AST 36 ALT 47 Alkaline Phosphatase 77 Total Protein 7.4 Albumin 3.5 Globulin 3.9 Albumin/Globulin Ratio 0.9 Radiography Diagnostic Testing: Clinical Impression(s) from Imaging Studies Chest X-Ray 12/15/22 20:05 IMPRESSION: There are findings consistent with COPD. There is no evidence of acute chest disease. Electronically Signed: Joesph Clark MD at 20:26 EDT , [place] and lateral chest x-ray was obtained. There are 2 views. On my independent interpretation, lung moreira show evidence of COPD. There is normal cardiac silhouette. Bony thorax is normal. There is no acute process noted. Radiologist also interpreted the x-ray and agrees. Treatment and Re-Evaluation :: Patient was given IV fluids and Tylenol initially. Patient was given a dose of Rocephin. Patient was given Zofran for nausea. Patient was advised of his findings. Patient was advised of the need for hospitalization due to failed outpatient therapy. Case was discussed with the hospitalist. She will admit the patient to her service. Patient understands and is agreeable with the plan. All questions were answered. Discharge Plan Triage Chief Complaint: Fever ED Provider: Nhaum Dias Dx/Rx/DC Orders Clinical Impression: Complicated urinary tract infection, Failure of outpatient treatment, Thrombocytopenia Prescriptions: No Action esomeprazole magnesium [Nexium] 20 mg capsule,delayed release(DR/EC) 40 mg PO DAILY allopurinol 300 mg tablet 300 mg PO DAILY tamsulosin 0.4 mg capsule 0.4 mg PO DAILY testosterone 20.25 mg/1.25 gram (1.62 %) gel in metered-dose pump 4 pump transdermal DAILY Patient Comments: APPLY 4 PUMPS DAILY potassium chloride 10 mEq tablet extended release 20 meq PO DAILY aspirin 325 mg tablet,delayed release (DR/EC) 81 mg PO DAILY Qty: 90 0RF multivitamin,fy-lfic-ongopoej 1 TABLET tablet 1 tab PO DAILY Patient Comments: vitamin albuterol sulfate 1 INHALER inhaler 1 - 2 puff INHALATION Q6H PRN PRN (Reason: Asthma) nitrofurantoin monohyd/m-cryst [Macrobid] 100 mg capsule 100 mg PO BID 7 Days Qty: 14 0RF Rx Instructions: must administer with a meal/food potassium chloride 20 mEq tablet extended release 40 meq PO DAILY Qty: 8 0RF atorvastatin 20 mg tablet 20 mg PO QHS Qty: 90 3RF losartan 25 mg tablet 25 mg PO DAILY Qty: 90 3RF amlodipine 5 mg tablet 5 mg PO DAILY Qty: 90 3RF Primary Care Provider: Jagjit Myers Referrals: Jagjit Myers MD [Primary Care Provider] - Disposition Disposition: Acute Care Hospital [facility]
[2022-12-15] MEDS: Acetaminophen 500 MG Tablet 1000 MG PO (19:55)
[2022-12-15] MEDS: 0.9% Normal Saline 1,000 ML 1000 ML IV (19:55)
--- NOTE | 2022-12-15 20:05 | RAD_ITS ---
STUDY: X-RAY CHEST REASON FOR EXAM: Male, 67 years old. Fever TECHNIQUE: Frontal and lateral views of the chest. COMPARISON: 12/14/2022. FINDINGS: There is hyperinflation of the lungs consistent with chronic obstructive lung disease (COPD). No infiltrates or effusions. There is no demonstrated pleural abnormality. Normal size heart. Normal mediastinum and whit. Normal visualized pulmonary arteries. Normal visualized aortic arch and descending thoracic aorta. There are diffuse degenerative changes of the visualized thoracic spine. Stable appearance of epidural stimulator. Normal visualized ribs, clavicles, and shoulders. There is no demonstrated abnormality of the visualized soft tissue structures of the upper abdomen. RAD/Chest PA and Lateral IMPRESSION: There are findings consistent with COPD. There is no evidence of acute chest disease. Electronically Signed: Joesph Clark MD at 20:26 EDT ,
[2022-12-15] MEDS: Ceftriaxone 1 GM/50 ML BAG IV (20:16)
[2022-12-15 20:31] LABS: Absolute Lymphocyte Count 0.19 X10^3/uL (0.83-4.51); Absolute Neutrophil Count 3.9 X10^3/uL (2.0-7.7); Basophil# 0.01 X10^3/uL; Basophil% 0.2 % (0-1); Eosinophil# 0.03 X10^3/uL; Eosinophils% 0.7 % (0-5); Hematocrit 41.1 % (40-54); Hemoglobin 14.4 g/dL (13.0-16.5); Lymphocyte # 0.19 X10^3/ul (0.83-4.51); Lymphocyte % 4.4 % (19-41); Mean Corpuscular Hgb 31.2 pg (27.0-32.0); Mean Corpuscular Volume 89.2 fL (80-94); Mean Platelet Vol. 11.6 fl (6.2-12.0); Monocyte# 0.17 X10^3/uL; NRBC Flagged by Analyzer 0 % (0-5); Neutrophil # 3.86 X10^3/uL (2.7-7.7); Neutrophil % 90.2 % (47-70); POSITIVE COUNT YES; POSITIVE DIFFERENTIAL YES; Platelet Count 87 K/mm3 (150-450); RBC Distribution Width CV 13.2 % (11.6-14.6); RBC Distribution Width SD 43.3 fl (35.1-43.9); Red Blood Count 4.61 M/mm3 (4.6-6.2); White Blood Count 4.3 K/mm3 (4.4-11.0)
[2022-12-15 20:44] LABS: International Normalized Ratio 1.2; Prothrombin Time (Protime)PT. 14.9 SECONDS (11.7-14.9)
[2022-12-15 20:45] LABS: Partial Thromboplast Time 32.2 Seconds (24.1-36.2)
[2022-12-15 20:48] LABS: ALB/GLOB Ratio 0.9 RATIO (0.9-2.4); AST(SGOT) 36 U/L (15-37); Alanine Aminotransfer ALT/SGPT 47 U/L (16-61); Albumin, Serum 3.5 g/dL (3.2-5.0); Alkaline Phosphatase 77 U/L (45-117); Anion Gap 9 (5-15); BUN 17 mg/dL (7-18); BUN/Creat Ratio 12.5 RATIO (10-20); Calcium,Total 8.6 mg/dL (8.5-10.1); Chloride 105 mmol/L (98-107); Creatinine, Serum 1.36 mg/dL (0.70-1.30); EST Glomerular Filtration Rate 56 mL/min (>60); Est Glom Filt Rate - Afr Amer 68 mL/min (>60); Estimated Creatinine Clearance 68.24 ml/min; Globulin 3.9 g/dL (2.2-4.2); Glucose 131 mg/dL (74-106); Potassium 3.3 mmol/L (3.5-5.1); Protein, Total 7.4 g/dL (6.4-8.2); Sodium Level 135 mmol/L (136-145)
[2022-12-15 20:49] LABS: Lactic Acid 1.7 mmol/L (0.4-1.9)
[2022-12-15] MEDS: Ondansetron 4 MG/2 ML Vial IV (21:00)
[2022-12-15 21:01] VITALS: TEMP 38.8
[2022-12-15 21:09] LABS: Differential Indicated SCAN CRITERIA MET
[2022-12-15 21:12] LABS: Differential Comment SCANNED
[2022-12-15 22:00] VITALS: RESP 23
--- NOTE | 2022-12-15 22:10 | PCM.HP.STD ---
HPI - General General Date of Admission: 12/15/22 Date of Service: 12/15/22 Chief Complaint: Recent UTI Dx, ongoing fevers, chills. HPI Narrative The patient is a 67 y/o M w/ PMHx: Hx DVT/PE, PAF/Flutter, Chronic thrombocytopenia, DEENA on CPAP q HS, Former tobacco use, CAD s/p PCI, HTN, HLD, GERD, Fibromyalgia, BPH, Hx TIA, Obesity who presents to the [facility] ED on 12/15/22 with history of intial ED evaluation on 12/14/2022 with recent PCP evaluation and referral for concern of UTI and weakness with persistent fever, general malaise noted to have been feeling poorly for the last 2 to 3 days with urine apparently consistent with a urinary tract infection at PCP office with decreased appetite as well as poor oral intake with mild complaint of dyspnea but no significant cough, suprapubic abdominal discomfort as well as flank discomfort with CBC with WC 15.8 with left shift, chemistry with a BUN/creatinine 15/1.35 only mildly above baseline, potassium 3.0 which was supplemented, lactic acid 1.4, hepatic profile with T. bili 2.3 otherwise unremarkable, urinalysis with evidence of UTI with urine culture pending, chest x-ray with a small region of atelectasis but no focal infiltrate, CT flank with noted stable left adrenal lesion and right renal cyst as well as liver cyst placed Macrobid given history of sensitivity to this agent in the past and discharged to home now representing secondary to persistent fevers up to 104 at home with onset of chills and ongoing persistent dysuria with no associated hematuria prompting repeat ED assessment. Patient notes that his fever has been responsive to Tylenol therapy. Work-up in the ED included initially T98 with most recent repeat T101.8, BP 140/69, respiratory rate 24, 98% on room air, CBC with WC 4.3 notably improved from day prior, hemoglobin 14.4, platelet 87 with neutrophil 90.2% mildly increased from day prior and lymphopenia, unremarkable coags, CMP with sodium 135, potassium 3.3, BUN/creatinine 17/1.36, glucose 131, lactic acid 1.7, hepatic profile with T. bili 1.40 otherwise unremarkable, chest x-ray with chronic changes with no evidence of acute cardiopulmonary findings, rapid SARS COVID and influenza antigen negative. Patient of note from review of records with prior evidence E. coli ESBL urinary tract infection with decent resistant patterns. In the ED patient ministered 1 L normal saline, Tylenol 1000 mg p.o. x1, Rocephin 1 g IV x1, Zofran 4 mg IV x1. PFSH Medical History Abnormal myocardial perfusion study Abnormal stress test Acute pyelonephritis Atherosclerotic heart disease of [place] coronary artery without angina pectoris BPH (benign prostatic hyperplasia) Claudication Confusion Dyspnea on exertion Essential hypertension Fibromyalgia GERD (gastroesophageal reflux disease) H/O percutaneous transluminal coronary angioplasty History of shingles HTN (hypertension) Obesity DEENA (obstructive sleep apnea) Prostate enlargement Pulmonary embolism Pure hypercholesterolemia Rectal bleeding Testosterone deficiency TIA (transient ischemic attack) Unstable angina UTI (urinary tract infection) Home Medications multivitamin,[id number] 27 mg-0.4 mg tablet 1 tab PO DAILY supplement 12/10/13 [History Last Taken 02/29/20] albuterol sulfate 90 mcg/actuation aerosol inhaler 1 - 2 puff inhalation Q6H PRN PRN Asthma 07/08/19 [History Last Taken 02/08/20] esomeprazole magnesium 20 mg capsule,delayed release (Nexium) 40 mg PO DAILY 10/01/20 [History Last Taken Unknown] atorvastatin 20 mg tablet 20 mg PO QHS #90 tabs 11/19/20 [Rx Last Taken Unknown] allopurinol 300 mg tablet 300 mg PO DAILY 10/20/21 [History Last Taken Unknown] potassium chloride 10 mEq tablet,extended release 20 meq PO DAILY 11/23/21 [History Last Taken Unknown] testosterone 4 pump transdermal DAILY 11/23/21 [History Last Taken Unknown] losartan 25 mg tablet 25 mg PO DAILY #90 tabs 03/03/22 [Rx Last Taken 08/09/22] tamsulosin 0.4 mg capsule 0.4 mg PO DAILY 04/29/22 [History Last Taken Unknown] amlodipine 5 mg tablet 5 mg PO DAILY htn #90 tabs 09/06/22 [Rx Last Taken Unknown] aspirin 325 mg tablet,delayed release 81 mg (0.2492 x 325 mg) PO DAILY #90 tabs 11/07/22 [Rx Last Taken Unknown] nitrofurantoin monohydrate/macrocrystals 100 mg capsule (Macrobid) 100 mg PO BID 7 days #14 caps 12/14/22 [Rx Last Taken Unknown] potassium chloride 20 mEq tablet,extended release 40 meq (2 x 20 mEq) PO DAILY #8 tabs 12/14/22 [Rx Last Taken Unknown] Allergy/AdvReac Type Severity Reaction Status Date / Time Sulfa (Sulfonamide Allergy Unknown Verified 12/15/22 18:54 Antibiotics) Family History Mother CAD (coronary artery disease) Hypertension Hx of CABG Father Hypertension Myocardial infarction Grandfather Myocardial infarction paternal Grandmother Cancer pancreatic CA Grandfather CAD (coronary artery disease) Surgical History History of arthroscopy of right knee History of back surgery History of laparoscopic cholecystectomy History of left heart catheterization (LHC) History of PTCA (~08/2012) History of repair of rotator cuff History of tonsillectomy and adenoidectomy History of transurethral resection of prostate Presence of coronary angioplasty implant and graft (~08/2012) Presence of stent in coronary artery (~08/2012) Spinal cord stimulator status (~05/2021) Social History Smoking Status: Former smoker quit date: 06/19/94 pack-years: 42 how long ago did patient quit smokin second hand exposure: No alcohol intake: current alcohol intake frequency: holidays/special occasions only Alcohol type: beer substance use type: does not use caffeine: Yes Type: carbonated beverages, coffee and tea what type of physical activity do you participate in: none ROS ROS Narrative Admission Review of Systems: CONSTITUTIONAL: No weight loss, + fever, chills, weakness or fatigue. HEENT: Eyes: No visual loss, blurred vision, double vision or yellow sclerae. Ears, Nose, Throat: No hearing loss, sneezing, congestion, runny nose or sore throat. SKIN: No rash or itching, lesions, wounds. CARDIOVASCULAR: No chest pain, chest pressure or chest discomfort, palpitations, edema, orthopnea, syncopal events. RESPIRATORY: + Intermittent nonproductive cough, occasional shortness of breath, No reported wheezing, hemoptysis. GASTROINTESTINAL: + anorexia, No nausea, vomiting or diarrhea, abdominal pain, melena, BRBPR. GENITOURINARY: + dysuria, frequency, suprapubic discomfort, flank discomfort, No urgency or retention. NEUROLOGICAL: No headache, dizziness, syncope, paralysis, ataxia, numbness or tingling in the extremities, focal weakness, change in bowel or bladder control, seizure. MUSCULOSKELETAL: + muscle, back pain, joint pain or stiffness. HEMATOLOGIC: No anemia, bleeding or bruising. LYMPHATICS: No enlarged nodes. No history of splenectomy. PSYCHIATRIC: No history of depression or anxiety. ENDOCRINOLOGIC: + reports of sweating, cold or heat intolerance. No polyuria or polydipsia. ALLERGIES: No history of asthma, hives, eczema or rhinitis. Vital Signs Vital Signs Vital Signs: 12/15/22 18:54 12/15/22 19:07 12/15/22 19:07 Temperature 98 F 99 F Temperature Source Temporal Oral Pulse Rate 98 98 Respiratory Rate 24 H 24 H Respiratory Effort Normal Respiratory Pattern Normal Blood Pressure 140/69 H 140/69 H Blood Pressure Mean 92 92 Pulse Ox 98 98 Oxygen Delivery Method Room Air 12/15/22 21:01 Temperature 101.8 F H Temperature Source Oral Pulse Rate Respiratory Rate Respiratory Effort Respiratory Pattern Blood Pressure Blood Pressure Mean Pulse Ox Oxygen Delivery Method Weight Weight: 327 lb 6.4 oz Body Mass Index (BMI) 38.8 Physical Exam Narrative Physical Examination: General: Awake, alert, oriented x 3 and cooperative, laying in the ED bed, mildly diaphoretic, flushed, mildly tachycardic. Skin: Flushed color, normal turgor, no icterus, no cyanosis. HEENT: AT/NC, EOMI, PERRLA, moderately dry MM, no carotid bruits or JVD noted; however, habitus with thickened neck makes evaluation difficult. Lungs: Diminished, distant, likely in part secondary to obese habitus, mild increased respiratory rate but no distress, no rales, ronchi or wheezing. Heart: Mildly tachycardic with regular rhythm; no gallop, rub audible. Abdomen: Soft, obese, NTTP, ND, distant normal BS, difficult to assess HSM given habitus. Extremities: No cyanosis, clubbing, or edema. Neurological: Patient awake, alert, oriented as noted, cognitive function intact; pupils equally reactive to light and accommodation, cranial nerves grossly normal, moving all 4 extremities, no focal deficits, strength moderately globally decreased secondary to acute presentation. Psychiatric: Affect appears flat, fatigued, ill-appearing, no acute evidence of depressive or anxiety feelings. Results Lab / Micro Data 12/15/22 19:55 12/15/22 19:55 Labs: Laboratory Results - last 24 hr 12/15/22 19:55: WBC 4.3 L, RBC 4.61, Hgb 14.4, Hct 41.1, MCV 89.2, MCH 31.2, MCHC 35.0, RDW Std Deviation 43.3, RDW Coeff of Lito 13.2, Plt Count 87 L, MPV 11.6, Immature Gran % (Auto) 0.500, Neut % (Auto) 90.2 H, Lymph % (Auto) 4.4 L, [place] % (Auto) 4.0, Eos % (Auto) 0.7, Baso % (Auto) 0.2, Absolute Neuts (auto) 3.9, Absolute Lymphs (auto) 0.19 L, Nucleated RBC % 0, Differential Comment SCANNED, PT 14.9, INR 1.2, APTT 32.2, Sodium 135 L, Potassium 3.3 L, Chloride 105, Carbon Dioxide 21.0, Anion Gap 9, BUN 17, Creatinine 1.36 H, Estim Creat Clear Calc 68.24, Est GFR (MDRD) Af Amer 68, Est GFR (MDRD) Non-Af 56 L, BUN/Creatinine Ratio 12.5, Glucose 131 H, Lactic Acid 1.7, Calcium 8.6, Total Bilirubin 1.40 H, AST 36, ALT 47, Alkaline Phosphatase 77, Total Protein 7.4, Albumin 3.5, Globulin 3.9, Albumin/Globulin Ratio 0.9 Micro: Microbiology 12/15/22 19:55 Nasal Secretion SARS-CoV-2 & FLU Antigen (Rapid) - Final Radiology Impression Chest X-Ray 12/15/22 20:05 IMPRESSION: There are findings consistent with COPD. There is no evidence of acute chest disease. Electronically Signed: Joesph Clark MD at 20:26 EDT , Assessment & Plan Assessment/Plan (1) Complicated urinary tract infection: PLAN: Plan The patient is a 67 y/o M w/ PMHx: Hx DVT/PE, PAF/Flutter, Chronic thrombocytopenia, DEENA on CPAP q HS, Former tobacco use, CAD s/p PCI, HTN, HLD, GERD, Fibromyalgia, BPH, Hx TIA, Obesity who presents to the [facility] ED on 12/15/22 with history of intial ED evaluation on 12/14/2022 with recent PCP evaluation and referral for concern of UTI placed on Macrobid given history of sensitivity to this agent in the past and discharged to home now representing secondary to persistent fevers up to 104 at home with onset of chills and ongoing persistent dysuria with no associated hematuria prompting repeat ED assessment. #1. Acute Complicated Urinary Tract Infection: Will admit to [facility] upon ED evaluation remarkable, pending UCx, from review of most recent records patient has previously had E. coli ESBL producing organism urinary tract infection with decent resistance patterns, will continue judicious IVFs, monitor I/Os, initiate IV meropenem based on most recent 07/23/2018 culture w/ transition as able pending sensitivities and speciation. Bld cx x 2 obtained in the ED. Patient did report 6,000 mg total tylenol administration including that administered in the ED following more intensive discussions and given this will hold on tylenol usage and obtain tylenol level now and in AM. Will use motrin for fever at this point. #2. Suspected Underlying Chronic COPD: Chest x-ray with chronic COPD type changes, no obvious infiltrate, underlying history may be etiology for patient's mild cough, no formal diagnosis but history of tobacco usage, will initiate ATC budesonide therapy with PRN albuterol, HOB, IS parameters, if able to produce sputum would certainly send culture and will obtain full respiratory viral panel to assure no concurrent acute viral infection. #3. Mild acute renal insufficiency likely secondary to recent decreased oral intake, dehydration with acute presentation: Admission BUN/creatinine 17/1.36, day prior BUN/creatinine 15/1.35, baseline appears primarily 1.0-1.2 but has been previously up to 1.3, continue judicious hydration, if worsens further would hold patient's losartan but for now very minimally changed from his baseline. #4. Hyperbilirubinemia: Recent 12/14/2022 visit with T. bili elevated at 2.30, repeat today 1.40, LFTs unremarkable, likely related with his recent acute presentation, continue treatments as noted and repeat CMP in AM. #5. Hypokalemia: Admission K+ 3.3, magnesium level requested supplementation given, repeat level in AM. #6. Acute on chronic thrombocytopenia: Patient with previous evidence of thrombocytopenia throughout his history, unclear exact etiology, acute presentation 12/15/2022 with platelet 87, prior to this 138, likely reactive with acute illness, will continue to trend CBC. #7. CAD: Status post PCI LAD 08/2012, most recent repeat catheterization 2018 demonstrating [place] multivessel coronary disease and a patent LAD stent at that time, will continue aspirin, statin, losartan, for most recent list not on beta-jacob therapy, unclear exact reason. #8. History of VTE: Patient with prior history of DVT, PE after travel and with a concurrent PICC line treated with NOAC, no longer taking. #9. Paroxysmal atrial flutter/paroxysmal atrial fibrillation: Recent evaluation 08/09/2022 with cardioversion from atrial fibrillation/flutter which was successful, recent 11/07/2022 cardiology visit with patient insistence and preference at that time of discontinuation of his anticoagulant therapy secondary to cost and deferral of usage of Coumadin despite discussion of stroke risk but agreement to take daily aspirin 325 mg. #10. Hypertension: Continue home regimen including amlodipine, losartan, PRN hydralazine. #11. Hyperlipidemia: We will continue patient on statin therapy. #12. History TIA: We will continue aspirin, statin, hypertensive regimen as noted #13. BPH: We will continue patient home Flomax regimen. #14. Gout: We will continue patient home allopurinol regimen. #15. Obesity: Weight loss and lifestyle changes encouraged. #16. GERD: We will continue patient home PPI. #17. Former tobacco use: Encourage continued tobacco cessation. #18. DEENA: CPAP nightly. #19. DVT prophylaxis: Lovenox cautiously given concurrent thrombocytopenia as noted above. Admission Evaluation Time spent evaluating chart, patient history, patient evaluation, care planning and discussion with specialists: 75 minutes. Charges/Coding Visit Charges Inpatient E&M: 48189 Init Hosp L3
[2022-12-15 22:24] VITALS: BP 136/68; PULSE 89; RESP 20; TEMP 37.9; O2SAT 97
[2022-12-15 23:00] VITALS: BP 136/68; PULSE 89; RESP 20; TEMP 37.9; O2SAT 97
[2022-12-15 23:33] VITALS: BMI 38.3
[2022-12-16 00:05] LABS: Magnesium 1.8 mg/dL (1.6-2.6)
[2022-12-16 00:07] VITALS: BP 133/62; PULSE 81; RESP 16; TEMP 37.9; O2SAT 95
[2022-12-16] MEDS: Potassium Chloride Oral Tablet 20 MEQ 40 MEQ PO ×2 (00:18→10:07)
--- NOTE | 2022-12-16 00:19 | PCM.HOSP.N ---
Hospitalist Note Patient noted willingness to restart eliquis regimen. Reports to staff occasionally having intermittent palpitations.
[2022-12-16] MEDS: 0.9% Normal Saline 1,000 ML 100 ML IV (00:20)
[2022-12-16] MEDS: proCHLORPERazine 10 MG/2 ML Vial 5 MG IV (00:25)
[2022-12-16 00:44] LABS: Acetaminophen (Tylenol) Level 5.1 ug/mL (10.0-30.0)
[2022-12-16 04:09] VITALS: BP 152/69; PULSE 94; RESP 16; TEMP 37.4; O2SAT 98
[2022-12-16] MEDS: APIXABAN 5 MG TABLET PO (04:10)
[2022-12-16 06:00] VITALS: BMI 38.2
[2022-12-16 06:16] LABS: Absolute Lymphocyte Count 0.25 X10^3/uL (0.83-4.51); Absolute Neutrophil Count 3.5 X10^3/uL (2.0-7.7); Basophil# 0.01 X10^3/uL; Basophil% 0.2 % (0-1); Eosinophil# 0.01 X10^3/uL; Eosinophils% 0.2 % (0-5); Hematocrit 37.9 % (40-54); Hemoglobin 13.1 g/dL (13.0-16.5); Lymphocyte # 0.25 X10^3/ul (0.83-4.51); Lymphocyte % 5.9 % (19-41); Mean Corp Hgb Conc 34.6 g/dL (32-36); Mean Corpuscular Hgb 30.5 pg (27.0-32.0); Mean Corpuscular Volume 88.3 fL (80-94); Mean Platelet Vol. 11.5 fl (6.2-12.0); Monocyte# 0.47 X10^3/uL; Monocyte% 11.1 % (0-10); NRBC Flagged by Analyzer 0 % (0-5); Neutrophil # 3.47 X10^3/uL (2.7-7.7); Neutrophil % 82.1 % (47-70); POSITIVE COUNT YES; POSITIVE DIFFERENTIAL YES; Platelet Count 92 K/mm3 (150-450); RBC Distribution Width CV 13.2 % (11.6-14.6); RBC Distribution Width SD 42.5 fl (35.1-43.9); Red Blood Count 4.29 M/mm3 (4.6-6.2); White Blood Count 4.2 K/mm3 (4.4-11.0)
[2022-12-16 06:17] LABS: Differential Indicated SCAN CRITERIA MET
[2022-12-16 06:37] LABS: Acetaminophen (Tylenol) Level 2.3 ug/mL (10.0-30.0)
[2022-12-16 06:50] LABS: ALB/GLOB Ratio 0.8 RATIO (0.9-2.4); AST(SGOT) 34 U/L (15-37); Alanine Aminotransfer ALT/SGPT 41 U/L (16-61); Albumin, Serum 2.8 g/dL (3.2-5.0); Alkaline Phosphatase 59 U/L (45-117); Anion Gap 7 (5-15); BUN 14 mg/dL (7-18); BUN/Creat Ratio 12.7 RATIO (10-20); Calcium,Total 7.8 mg/dL (8.5-10.1); Chloride 108 mmol/L (98-107); EST Glomerular Filtration Rate 71 mL/min (>60); Est Glom Filt Rate - Afr Amer 86 mL/min (>60); Estimated Creatinine Clearance 84.38 ml/min; Globulin 3.3 g/dL (2.2-4.2); Glucose 130 mg/dL (74-106); Potassium 3.3 mmol/L (3.5-5.1); Protein, Total 6.1 g/dL (6.4-8.2); Sodium Level 137 mmol/L (136-145)
[2022-12-16 07:13] LABS: Differential Comment SCANNED; Platelet Estimate SLT DEC (ADEQ)
[2022-12-16] MEDS: Ondansetron 4 MG/2 ML Vial IV (07:28)
[2022-12-16 08:35] VITALS: O2SAT 95
[2022-12-16 08:40] VITALS: BP 123/68; PULSE 73; RESP 18; TEMP 37.4; O2SAT 99
[2022-12-16] MEDS: Pantoprazole Sodium 40 MG Tablet PO (09:59)
[2022-12-16] MEDS: amLODIPine 5 MG Tablet PO (09:59)
[2022-12-16] MEDS: Losartan Potassium 25 MG Tablet PO (09:59)
[2022-12-16] MEDS: Allopurinol 300 MG Tablet PO (09:59)
[2022-12-16] MEDS: Tamsulosin HCl 0.4 MG Capsule PO (09:59)
[2022-12-16] MEDS: Sertraline 50 MG Tablet 75 MG PO (09:59)
[2022-12-16 10:21] LABS: Pathologist Review Reviewed
[2022-12-16 10:22] LABS: Pathologist Review Reviewed
--- NOTE | 2022-12-16 10:45 | CASEMGMT ---
ERASMO CAT Assessment: Face to Face with pt for initial transition planning/care coordination assessment. RN EMORY introduced self and role at [facility], pt voices understanding and consents to assessment. Pt is A/O x4 and answers all questions appropriately at this time. Pt lying in bed in no distress with his son at bedside. Pt agreeable to assessment with son present. Care providers, pharmacy, and demographics verified/updated. Admitting Dx: acute complicated UTI, failed outpt treatment PCP:Lucia Specialists: ANA, cardio; Richard uro; Donald, COSMO Preferred Pharmacy: [facility] Insurance: [employer] Prescription Benefit: yes LNOK: Edwin Chapa, son; Angela John Eduard, dtr in law; Lucila Chapa, dtr Living Arrangements: Pt lives alone in a single story home with 3 steps to enter with a rail. Pt reports he is I in ADL's and denies concerns at home. Transportation: Pt drives self and denies concerns with transportation. DME/HHC/SNF: Pt has a CPAP and a cane, he does not use the cane. Pt denies hx of HHC or SNF stays. Pt states no concerns with going home at time of dc. Pt states no further concerns/needs. CM to follow. Advised pt to ask CM if any further question/concerns/needs arise, voices understanding. Pt Goal: Home Plan: Home
--- NOTE | 2022-12-16 11:06 | DCINST_ITS ---
Discharge Instructions Diet Discharge Diet: No restrictions Activity Discharge Activity: Return to Normal Activity Weight Bearing Status: Full weight bearing Follow Up Care Test Results: Test results from this visit will be discussed in further detail at your follow- up appointment, if applicable. Discharge Plan Admission Admit Date/Time: 12/15/22 22:19 Primary Reason for Your Visit: cystitis Attending Provider: Librado Bah Primary Care Provider: Jagjit Myers Consulting Providers: Lucy Partida Instructions Additional Instructions / Restrictions: You have a pressure percent at home for Cipro, take it for 5 days starting 12/17/2022 Discharge Orders/Prescriptions Prescriptions: Continued esomeprazole magnesium [Nexium] 20 mg capsule,delayed release(DR/EC) 40 mg PO DAILY allopurinol 300 mg tablet 300 mg PO DAILY tamsulosin 0.4 mg capsule 0.4 mg PO DAILY testosterone 20.25 mg/1.25 gram (1.62 %) gel in metered-dose pump 4 pump transdermal DAILY Patient Comments: APPLY 4 PUMPS DAILY potassium chloride 10 mEq tablet extended release 20 meq PO DAILY aspirin 325 mg tablet,delayed release (DR/EC) 81 mg PO DAILY Qty: 90 0RF multivitamin,[id number] 1 TABLET tablet 1 tab PO DAILY Patient Comments: vitamin albuterol sulfate 1 INHALER inhaler 1 - 2 puff INHALATION Q6H PRN PRN (Reason: Asthma) Hold Instructions: hasn't needed Eliquis 5 mg tablet PO Q12H cholecalciferol (vitamin D3) [Vitamin D3] 25 mcg (1,000 unit) tablet 1,000 unit PO DAILY Patient Comments: 1 tablet by mouth once a day sertraline 50 mg tablet 25 mg PO Q24H Patient Comments: TAKE 1 & 1/2 (ONE & ONE-HALF) TABLETS BY MOUTH ONCE DAILY potassium chloride 20 mEq tablet extended release 40 meq PO DAILY Qty: 8 0RF Hold Instructions: Ordered atorvastatin 20 mg tablet 20 mg PO QHS Qty: 90 3RF losartan 25 mg tablet 25 mg PO DAILY Qty: 90 3RF amlodipine 5 mg tablet 5 mg PO DAILY Qty: 90 3RF Discontinued nitrofurantoin monohyd/m-cryst [Macrobid] 100 mg capsule 100 mg PO BID 7 Days Qty: 14 0RF Rx Instructions: must administer with a meal/food Referrals / Follow Up: Jagjit Myers MD [Primary Care Provider] - See Referral Note (At your next scheduled visit) Disposition Disposition (needs filled in before D/C Order can be placed): Home, Self Care
--- NOTE | 2022-12-16 11:26 | PCM.DC.SUM ---
Providers Date of Admission: 12/15/22 Date of Discharge: 12/16/22 Primary Care Physician: Dr. Jagjit Myers MD Reason For Visit: ACUTE COMPLICATED UTI, FAILED OUTPATIENT TREATMENT Diagnosis Discharge Diagnosis (1) Complicated urinary tract infection: Status: Acute Code(s): N39.0 - Urinary tract infection, site not specified Plan 1. Acute cystitis with E. coli-not ESBL E. coli #2 paroxysmal atrial fib/flutter #3 thrombocytopenia-etiology unclear #4 chronic obstructive pulmonary disease #5 hypokalemia #6 BPH Medications at Discharge Home Medications multivitamin,fz-wanm-auphosjn 27 mg-0.4 mg tablet 1 tab PO DAILY supplement 12/10/13 albuterol sulfate 90 mcg/actuation aerosol inhaler 1 - 2 puff inhalation Q6H PRN PRN Asthma 07/08/19 esomeprazole magnesium 20 mg capsule,delayed release (Nexium) 40 mg PO DAILY acid reflux 10/01/20 atorvastatin 20 mg tablet 20 mg PO QHS #90 tabs 11/19/20 allopurinol 300 mg tablet 300 mg PO DAILY gout 10/20/21 potassium chloride 10 mEq tablet,extended release 20 meq PO DAILY hypokalemia 11/23/21 testosterone 4 pump transdermal DAILY low testosterone 11/23/21 losartan 25 mg tablet 25 mg PO DAILY #90 tabs 03/03/22 tamsulosin 0.4 mg capsule 0.4 mg PO DAILY prostate 04/29/22 amlodipine 5 mg tablet 5 mg PO DAILY htn #90 tabs 09/06/22 aspirin 325 mg tablet,delayed release 81 mg (0.2492 x 325 mg) PO DAILY #90 tabs 11/07/22 potassium chloride 20 mEq tablet,extended release 40 meq (2 x 20 mEq) PO DAILY #8 tabs 12/14/22 apixaban 5 mg tablet (Eliquis) mg PO Q12H afib 12/15/22 cholecalciferol (vitamin D3) 25 mcg (1,000 unit) tablet (Vitamin D3) 1,000 unit PO DAILY general health 12/15/22 sertraline 50 mg tablet 25 mg PO Q24H depression 12/15/22 Hospital Course Operations None Procedures None Summary of Care Provided Minutes Spent on Discharge: 30 Hospital Course: This 67-year-old white male was seen in the emergency room at [facility] with complaints of elevated temperature at home, he had been seen on 12/14/2022 and diagnosed with acute cystitis, at that time he was placed on an antibiotic and discharged home. He returned to the ER for reevaluation after spiking a temp at home. Work-up in the emergency room showed the patient's white blood cell count to be normal, chemistry profile showed an elevated creatinine 1.36 and potassium of 3.3. Patient was admitted to [place] [address] for acute cystitis, ESBL organism was suspected but the patient's urine culture returned positive for E. coli which was pansensitive. Patient appeared to recover quickly after his hospitalization, he requested discharge if possible on 12/16/2022, I reevaluated him at that time and felt that he was stable for discharge home. On 12/16/2022, patient was seen and examined: On examination he appeared in good health and spirits. Vital signs as documented. Skin warm and dry and without overt rashes. Neck without JVD, neck was supple, trachea midline, thyroid was normal. Lungs clear bilaterally, normal air movement was noted. Heart exam notable for regular rhythm, normal sounds and absence of murmurs, rubs or gallops. Abdomen unremarkable and without evidence of organomegaly, masses, or abdominal aortic enlargement. Bowel sounds are present, abdomen is not distended. Extremities nonedematous, no cyanosis was noted, no clubbing was noted. Neuro: Cranial nerves II through XII are grossly intact, no focal motor deficits were noted, sensation to light touch and pinprick intact, motor exam 5/5 throughout. Psych: Patient is alert and oriented x3, he does not appear anxious or depressed, he does not appear agitated. Patient appears stable for discharge home on 12/16/2022. Weight / BMI Weight Weight: 146.7 kg Body Mass Index (BMI) 38.2 ABG / Lab / Microbiology Data 12/16/22 05:50 12/16/22 05:50 Laboratory: Laboratory Results - last 24 hr 12/15/22 19:55: WBC 4.3 L, RBC 4.61, Hgb 14.4, Hct 41.1, MCV 89.2, MCH 31.2, MCHC 35.0, RDW Std Deviation 43.3, RDW Coeff of Lito 13.2, Plt Count 87 L, MPV 11.6, Immature Gran % (Auto) 0.500, Neut % (Auto) 90.2 H, Lymph % (Auto) 4.4 L, [place] % (Auto) 4.0, Eos % (Auto) 0.7, Baso % (Auto) 0.2, Absolute Neuts (auto) 3.9, Absolute Lymphs (auto) 0.19 L, Nucleated RBC % 0, Differential Comment SCANNED, Diff Path Review Reviewed, PT 14.9, INR 1.2, APTT 32.2, Sodium 135 L, Potassium 3.3 L, Chloride 105, Carbon Dioxide 21.0, Anion Gap 9, BUN 17, Creatinine 1.36 H, Estim Creat Clear Calc 68.24, Est GFR (MDRD) Af Amer 68, Est GFR (MDRD) Non-Af 56 L, BUN/Creatinine Ratio 12.5, Glucose 131 H, Lactic Acid 1.7, Calcium 8.6, Magnesium 1.8, Total Bilirubin 1.40 H, AST 36, ALT 47, Alkaline Phosphatase 77, Total Protein 7.4, Albumin 3.5, Globulin 3.9, Albumin/Globulin Ratio 0.9 12/16/22 00:00: Acetaminophen 5.1 L 12/16/22 05:50: WBC 4.2 L, RBC 4.29 L, Hgb 13.1, Hct 37.9 L, MCV 88.3, MCH 30.5, MCHC 34.6, RDW Std Deviation 42.5, RDW Coeff of Lito 13.2, Plt Count 92 L, MPV 11.5, Immature Gran % (Auto) 0.500, Neut % (Auto) 82.1 H, Lymph % (Auto) 5.9 L, [place] % (Auto) 11.1 H, Eos % (Auto) 0.2, Baso % (Auto) 0.2, Absolute Neuts (auto) 3.5, Absolute Lymphs (auto) 0.25 L, Nucleated RBC % 0, Differential Comment SCANNED, Diff Path Review Reviewed, Platelet Estimate SLT DEC, Sodium 137, Potassium 3.3 L, Chloride 108 H, Carbon Dioxide 22.0, Anion Gap 7, BUN 14, Creatinine 1.10, Estim Creat Clear Calc 84.38, Est GFR (MDRD) Af Amer 86, Est GFR (MDRD) Non-Af 71, BUN/Creatinine Ratio 12.7, Glucose 130 H, Calcium 7.8 L, Total Bilirubin 1.20 H, AST 34, ALT 41, Alkaline Phosphatase 59, Total Protein 6.1 L, Albumin 2.8 L, Globulin 3.3, Albumin/Globulin Ratio 0.8 L, Acetaminophen 2.3 L Microbiology: Microbiology 12/15/22 22:55 Mucosa - Nasopharyngeal Respiratory Panel (PCR) - Final 12/15/22 19:55 Nasal Secretion SARS-CoV-2 & FLU Antigen (Rapid) - Final Radiography Diagnostic Testing: Radiology Impression Chest X-Ray 12/15/22 20:05 IMPRESSION: There are findings consistent with COPD. There is no evidence of acute chest disease. Electronically Signed: Joesph Clark MD at 20:26 EDT , D/C Instructions Discharge Diet: No restrictions Weight Bearing Status: Full weight bearing Meaningful Use Info Meaningful Use Diagnoses (Choose all that apply): None applicable Discharge Plan Admission Admit Date/Time: 12/15/22 22:19 Primary Reason for Your Visit: cystitis Attending Provider: Librado Bah Primary Care Provider: Jagjit Myers Consulting Providers: Lucy Partida Instructions Additional Instructions / Restrictions: You have a pressure percent at home for Cipro, take it for 5 days starting 12/17/2022 Discharge Orders/Prescriptions Prescriptions: Continued esomeprazole magnesium [Nexium] 20 mg capsule,delayed release(DR/EC) 40 mg PO DAILY allopurinol 300 mg tablet 300 mg PO DAILY tamsulosin 0.4 mg capsule 0.4 mg PO DAILY testosterone 20.25 mg/1.25 gram (1.62 %) gel in metered-dose pump 4 pump transdermal DAILY Patient Comments: APPLY 4 PUMPS DAILY potassium chloride 10 mEq tablet extended release 20 meq PO DAILY aspirin 325 mg tablet,delayed release (DR/EC) 81 mg PO DAILY Qty: 90 0RF multivitamin,vd-uqlf-anskkiix 1 TABLET tablet 1 tab PO DAILY Patient Comments: vitamin albuterol sulfate 1 INHALER inhaler 1 - 2 puff INHALATION Q6H PRN PRN (Reason: Asthma) Hold Instructions: hasn't needed Eliquis 5 mg tablet PO Q12H cholecalciferol (vitamin D3) [Vitamin D3] 25 mcg (1,000 unit) tablet 1,000 unit PO DAILY Patient Comments: 1 tablet by mouth once a day sertraline 50 mg tablet 25 mg PO Q24H Patient Comments: TAKE 1 & 1/2 (ONE & ONE-HALF) TABLETS BY MOUTH ONCE DAILY potassium chloride 20 mEq tablet extended release 40 meq PO DAILY Qty: 8 0RF Hold Instructions: MD Ordered atorvastatin 20 mg tablet 20 mg PO QHS Qty: 90 3RF losartan 25 mg tablet 25 mg PO DAILY Qty: 90 3RF amlodipine 5 mg tablet 5 mg PO DAILY Qty: 90 3RF Discontinued nitrofurantoin monohyd/m-cryst [Macrobid] 100 mg capsule 100 mg PO BID 7 Days Qty: 14 0RF Rx Instructions: must administer with a meal/food Referrals / Follow Up: Jagjit Myers MD [Primary Care Provider] - See Referral Note (At your next scheduled visit) Disposition Disposition (needs filled in before D/C Order can be placed): Home, Self Care Charges/Coding Visit Charges Inpatient E&M: 32958 Disch Hosp
[2022-12-16] MEDS: Ceftriaxone 1 GM/50 ML BAG IV (11:36)
[2022-12-16 12:54] VITALS: BP 131/68; PULSE 68; RESP 18; TEMP 36.8; O2SAT 100
== END 2022-12-16 12:56 | disposition home or self-care (01) | DRG 690 ==
LOC: ED 22:24 → MS3 22:52
PROVIDERS: Admitting Provider Family Medicine; Emergency Provider Emergency Medicine; PCP Family Medicine; Visit Provider Internal Medicine
DX: N30.00 Acute cystitis without hematuria (principal); I48.92 Unspecified atrial flutter; D69.6 Thrombocytopenia, unspecified; J44.9 Chronic obstructive pulmonary disease, unspecified; I48.0 Paroxysmal atrial fibrillation; K21.9 Gastro-esophageal reflux disease without esophagitis; I10 Essential (primary) hypertension; G47.33 Obstructive sleep apnea (adult) (pediatric); M10.9 Gout, unspecified; E87.6 Hypokalemia; I25.10 Atherosclerotic heart disease of native coronary artery without angina pectoris; E78.5 Hyperlipidemia, unspecified; Z87.891 Personal history of nicotine dependence; Z95.5 Presence of coronary angioplasty implant and graft; Z79.82 Long term (current) use of aspirin; B96.20 Unspecified Escherichia coli [E. coli] as the cause of diseases classified elsewhere; N40.0 Benign prostatic hyperplasia without lower urinary tract symptoms; Z86.73 Personal history of transient ischemic attack (TIA), and 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 residual deficits; E66.9 Obesity, unspecified; Z87.440 Personal history of urinary (tract) infections; R00.2 Palpitations
CPT/HCPCS: 36415; 71045; 71046; 74176; 80053; 80329; 81001; 83605; 83735; 85025; 85610; 85730; 87040; 87077; 87086; 87088; 87186; 87428; 87633; 93005; 96361; 96365; 99284; 99285; J2185; J7030; J7050; A4216; G0480; J2405

== ENCOUNTER → 2023-04-25 | Outpatient (CLI) | payer MEDICARE, BC, SELFPAY ==
[2023-04-25 10:45] LABS: PSA,Total - Annual Screen 3.94 ng/mL (0.00-4.00)
== END | disposition home or self-care (01) ==
LOC: LAB 09:03
PROVIDERS: PCP Family Medicine; Referring Provider Urology; Visit Provider Urology
DX: E29.1 Testicular hypofunction (principal); Z12.5 Encounter for screening for malignant neoplasm of prostate
CPT/HCPCS: 36415; 84153; 84403; G0103

== ENCOUNTER 2023-05-09 09:00 | Outpatient (RCR) | payer OTHER, BC, MEDICARE, SELFPAY ==
--- NOTE | 2023-04-25 15:07 | HP.PTEVAL ---
Patient's Visit Information Visit Information Visit Information: JERO GARZON is a 67 year old M referred to Physical Therapy by ARVIND TELLEZ with a diagnosis of PARTIAL TEAR L ACHILLES. Date of Evaluation: 04/25/23 Physical Therapist: Vivian Mcintyre PT, Cert MDT Visit Plan Frequency: 2x /Week Duration: 4-6 Weeks Plan: START WITH GENTLE NON WEIGHT BEARING AROM ALL PLANES L ANKLE AND STM TO DECREASE PAIN/SENSATIVITY AND INCREASE ROM OF L ANKLE. BEGIN STRENGTHEING OF L ANKLE WITH ISOMETRICS AND PROGRESS SLOWLY INTO STRENGTHENING THROUGH ROM ALL PLANES WITH LIGHT THERABANDS THEN SITTING THEN STANDING. AVOID INCREASED PAIN AND SWELLING. 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 ONE OF THE TRUCKS IS A STANDARD SHIFT AND NEEDS TO BE ABLE TO GET BACK TO DRIVING IT. HAVE NOT BEEN ABLE TO DRIVE IT SINCE 03/31/23 WHEN HURT L ANKLE. Disability: YES - X APPORX 3 YEARS FOR BACK Present symptoms: PAIN IN THE BACK AND INSIDE OF THE ANKLE. PAIN NUMBNESS AND TINGLING LEFT SIDE OF FOOT JUST NEAR THE HEEL AND ANKLE - NOT INTO THE TOES. Present since: 03/31/23. Pain Scale: WORST 8/10, LEAST 3/10 Currently: 3/10 Is it getting better, worse or staying the same: STAYING THE SAME Commenced as a result of: PATIENT REPORTS SOMETHING SNAPPED OR POPPED IN HIS L ANKLE WHILE ON THE LEG PRESS AT [employer] AT END OF WORKOUT AND THEN IT FELT WIERD AND GOT PREOGRESSIVELY WORSE TO THE POINT THAT HE COULD ONLY WALK WITH A CANE. IT WAS MY STUPIDITY. I WAS FEELING GOOD AND OVER-DID-IT. Worse: TWISTING IT, PUTTING PRESSURE ON TOES LIKE USING A CLUTCH, GOING UP AND DOWN STAIRS AND USING TOES TO DO THAT, LAYING HEEL ON RECLINER LEG REST, PUTTING PRESSURE ON HEEL. STANDING AND WALKING. Better: GETTING OFF OF IT. Disturbed sleep: YES - IF PRESSURE GETS ON THE HEEL Previous history/Previous treatment: UNREMARKABLE. NO PRIOR L FOOT OR ANKLE INJURIES OR SURGERIES. NO PRIOR L KNEE INJURIES OR SURGERIES. Treatment this episode: PREDNISONE - HELPED THE INFLAMMATION TO THE POINT THAT I COULD WALK ON IT AGAIN AND IT HAS CONTINUED TO IMPROVE TO THE POINT IT IS AT NOW. Gait: TIME AND DISTANCE LIMITED COMPARED TO NORMAL BUT ABLE TO AVOID LIMPIING IF GOES SLOWER. ABLE TO DO STEPS ONE AT A TIME LEADING UP WITH R AND DOWN WITH LEFT. Accidents: NO Unexplained weight loss: NO Imaging: MRI L ANKLE 04/14/23. PARTIAL TEAR OF ACHILLES. PATIENT REPORTS THE MRI SHOWS A LOT OF INFLAMMATION AND IF PT DOESN'T WORK THEY WILL NEED TO DO SURGERY. PMH/Recent major surgery: NEUROPATHY. 2 BACK SURGERIES WITH THE MOST RECENT ONE BEING ABOUT 2020. R FOOT POSTERIOR TIBIAL TENDON DYSFUNCTION. ATRIAL FIB. - PATIENT REPORTS THIS IS UNDER CONTROL WITH R ANKLE BRACE CURRENTLY. HTN. CVA X 3. HEART ATTACK 2006. Objective Objective: THIS PATIENT AMBULATES INDEP'LY INTO PHYSICAL THERAPY WITH A MILD LIMP ON THE L LE AND NOT USING ANY ASSISTIVE DEVICES. HE WALKS WITH DECREASED NATTY STRIDE LENGTH AND DECREASED CADANCE. HE IS WEARING NATTY ANKLE BRACES. R ANKLE BRACE FOR PTTD AND L AIR CAST. HE IS ABLE TO DEMONSTRATE HEEL STRIKE, FOOT FLAT AND TOE OFF PHASES OF GAIT ON L LE WITH CUEING BUT HAS DECREASED TOE OFF. HE HAS TENDERNESS WITH LIGHT PALPATION OF THE DISTAL HALF OF THE ACHILLES TENDON BUT NO TENDERNESS IN THE MUSCLE BELLY. HE REPORTS NUMBNESS MEDIALLY AND LATERALLY TO THE TENDON. NATTY LE STRENGTH IS GROSSLY 5/5 WITH MMT'ING EXCEPT NATTY ANKLES. R ANKLE - NT. L ANKLE: DORSI 4/5, PLANTAR 3+/5, IV 3-/5, EV 3-/5. L ANKLE AROM: DF -8, PF 34, IV 8, EV 5 DEG WITH C/O POST ANKLE PAIN DURING MVMT. L KNEE ROM = FULL EXT TO 124 DEG FLEX. CIRCUMFERENCE MEASUREMENTS: L ANKLE: malleoli 34 cm, MT heads 27.5 cm. R ANKLE: malleoli 31 cm, MT heads 27.5 cm. Balance/Special Test Scores Lower Extremity Functional Score: 31 Goals Goal 1:: PATIENT WILL HAVE INCREASED L ANKLE AROM BY 5 DEG X 4 DIRECTIONS TO EASE ADL'S Goal Time Frame: 2-4 Weeks Goal 2:: PATIENT WILL HAVE INCREASED L ANKLE STRENGTH BY 1/2 MUSCLE GRADE ALL PLANES. Goal Time Frame: 2-4 Weeks Goal 3:: PATIENT WILL DEMO STS X 10 IN 30 SEC WITHOUT UE ASSIST TO DEMONSTRATE IMPROVED FUNCTIONAL STRENGTH Goal Time Frame: 4-6 Weeks Goal 4:: PATIENT WILL DEMO INDEP GAIT ON LEVEL SURFACES WITHOUT DEVIATION, GOOD STRIDE LENGHT, GOOD CADANCE AND NO PAIN IN L ANKLE UNLIMITED DISTANCES WITH TUG TIME LESS THAN 10 SEC. Goal Time Frame: 6-8 Weeks Goal 5:: PATIENT WILL BE ABLE TO GO UP AND DOWN STEPS RECIPRICALLY WITH ONE HR WITHOUT DEVIATION Goal Time Frame: 8-12 Weeks Goal 6:: PATIENT WILL BE INDEP WITH A HEP FOR CONTINUED IMPROVEMENT ONCE FORMAL PHYSICAL THERPAY CONCLUDES. Goal Time Frame: 8-12 Weeks Rehabilitation Potential Physical Therapy Diagnosis: L ANKLE PAIN AND PARESTHESIA. L ANKLE WEAKNESS AND STIFFNESS. Rehabilitation Potential: Fair Anticipated Interventions Patient/Client Instruction: Educate patient on: Condition, Plan of Care and Risk Factors For the Purpose of:: To improve self management Therapeutic Exercise to Include: Strength training, Balance training, Flexibilty training, Gait and locomotor training, Neuromotor development, Passive ROM and Active ROM For the Purpose of:: To decrease pain, To increase ROM, To improve muscle performance and motor function, To increase tolerance to activity/condition/position, To improve ability of physical actions for home/community/work/leisure and To improve gait and locomotor functions Manual Therapy Techniques to Include: Passive ROM and Soft tissue mobilization For the Purpose of:: To decrease pain, To increase ROM and To improve nutrient delivery to tissue Text: Thank you for the opportunity to evaluate your patient. For Medicare and Medicare HMO plans, please review the plan of care and approve it. It will need to be FAXED BACK to us at [phone] for Medicare purposes. For Medicare only, by signing this I certify the plan of care. Please let me know if there are questions or concerns regarding this plan of care. Physician Signature: Date:
--- NOTE | 2023-05-22 13:00 | HP.PTDCSUM ---
Discharge Summary D/C summary: It has been my pleasure to treat JERO GARZON referred by ARVIND TELLEZ, with the diagnosis of PARTIAL TEAR L ACHILLES for a total of 6 visit(s). Discharge Date: 05/22/23 Please see the following information for a summary of their discharge status. Subjective Subjective: Patient reports he has no pain or issues with his ankle or heel. States he is 100% and would like to stop therapy and get back to work. Pain L ankle: Pain Intensity (Out of 10): 0 Objective Objective/Function: Patient reports he is 100% in regards to his Achilles and would like to be done. PT came and spoke with patient and educated him on contacting his Dr for return to work. Goals Goal 1:: PATIENT WILL HAVE INCREASED L ANKLE AROM BY 5 DEG X 4 DIRECTIONS TO EASE ADL'S Goal 2:: PATIENT WILL HAVE INCREASED L ANKLE STRENGTH BY 1/2 MUSCLE GRADE ALL PLANES. Goal 3:: PATIENT WILL DEMO STS X 10 IN 30 SEC WITHOUT UE ASSIST TO DEMONSTRATE IMPROVED FUNCTIONAL STRENGTH Goal 4:: PATIENT WILL DEMO INDEP GAIT ON LEVEL SURFACES WITHOUT DEVIATION, GOOD STRIDE LENGHT, GOOD CADANCE AND NO PAIN IN L ANKLE UNLIMITED DISTANCES WITH TUG TIME LESS THAN 10 SEC. Goal 5:: PATIENT WILL BE ABLE TO GO UP AND DOWN STEPS RECIPRICALLY WITH ONE HR WITHOUT DEVIATION Goal 6:: PATIENT WILL BE INDEP WITH A HEP FOR CONTINUED IMPROVEMENT ONCE FORMAL PHYSICAL THERPAY CONCLUDES. Plan Plan: WILL D/C AT PATIENT REQUEST. CAUTIONED PATIENT ABOUT RISK OF RE-OCCURANCE WITH STOPPING PT TOO SOON. PATIENT CANCELLED PT BENI'T TODAY AND PLANS TO CONTACT PHYSICIAN FOR RELEASE TO RETURN TO WORK. D/C Information d/c sentence: If there are questions or concerns regarding this patient's physical therapy, please feel free to call me at [phone]. Thank you for the referral of this patient. Sincerely, Vivian Mcintyre, PT, Cert MDT Balance/Gait/Functional tests Balance/Special Test Scores Lower Extremity Functional Score: 76
== END 2023-05-09 19:00 | disposition home or self-care (01) ==
LOC: PT 09:00
PROVIDERS: PCP Family Medicine
DX: S86.012D Strain of left Achilles tendon, subsequent encounter (principal); M76.821 Posterior tibial tendinitis, right leg
CPT/HCPCS: 97110; 97162; 97530

== ENCOUNTER → 2023-07-13 | Outpatient (CLI) | payer BC, OTHER, MEDICARE, SELFPAY ==
[2023-07-13 08:16] LABS: Absolute Lymphocyte Count 0.84 X10^3/uL (0.83-4.51); Absolute Neutrophil Count 2.2 X10^3/uL (2.0-7.7); Basophil# 0.02 X10^3/uL; Basophil% 0.6 % (0-1); Eosinophil# 0.06 X10^3/uL; Eosinophils% 1.7 % (0-5); Hemoglobin 15.5 g/dL (13.0-16.5); Lymphocyte # 0.84 X10^3/ul (0.83-4.51); Lymphocyte % 23.8 % (19-41); Mean Corp Hgb Conc 33.7 g/dL (32-36); Mean Corpuscular Hgb 29.2 pg (27.0-32.0); Mean Corpuscular Volume 86.6 fL (80-94); Mean Platelet Vol. 10.8 fl (6.2-12.0); Monocyte# 0.39 X10^3/uL; NRBC Flagged by Analyzer 0 % (0-5); Neutrophil # 2.22 X10^3/uL (2.7-7.7); Neutrophil % 62.9 % (47-70); Platelet Count 164 K/mm3 (150-450); RBC Distribution Width SD 40.1 fl (35.1-43.9); Red Blood Count 5.31 M/mm3 (4.6-6.2); White Blood Count 3.5 K/mm3 (4.4-11.0)
--- OUTSIDE RECORDS SUMMARY | 2023-07-13 08:28 | XMS RPT_ITS | CCD ---
Author Name Unknown Address [id number] [place] [address] Organization [facility] Care Team Providers Care Driller'S Assistant Name Role Phone Aurora IZMMERMAN, Sara Carter Unavailable Unavailable CHLOE WATT Unavailable Unavailable CHLOE WATT Unavailable Unavailable CHLOE WATT Unavailable Unavailable Erlin Mohr Unavailable Unavailable Hernán ZIMMERMAN, Dyana Hughes Unavailable [phone] Chloe Myers MD Primary Care Provider Chloe Myers MD Primary Care Provider Chloe Myers MD Primary Care Provider Chloe Myers MD Primary Care Provider LATISHA CALLAHAN Referring Unavailable LIDYA BENNETT Attending Unavailable LIDYA BENNETT Admitting Unavailable CHLOE MYERS Primary Care Unavailable ROBBY HERNANDES Attending Unavailable CHLOE MYERS Primary Care Unavailable CHLOE MYERS Referring Unavailable CHLOE MYERS Primary Care Unavailable CHLOE MYERS Attending Unavailable CHLOE MYERS Primary Care Unavailable CHLOE MYERS Attending Unavailable CHLOE MYERS Primary Care Unavailable CHLOE MYERS Attending Unavailable CHLOE MYERS Primary Care Unavailable LIDYA BENNETT Referring Unavailable LATISHA CALLAHAN Attending Unavailable CHLOE MYERS Primary Care Unavailable SELF Referring Unavailable CHLOE MYERS Attending Unavailable CHLOE MYERS Primary Care Unavailable CHLOE MYERS Primary Care Unavailable CHLOE MYERS Referring Unavailable ROBBY HERNANDES Referring Unavailable CHLOE MYERS Primary Care Unavailable CHLOE MYERS Primary Care Unavailable CHLOE MYERS Attending Unavailable CHLOE MYERS Primary Care Unavailable CHLOE MEYRS Referring Unavailable CHLOE MYERS Primary Care Unavailable CHLOE MYERS Referring Unavailable CHLOE MYERS Primary Care Unavailable CHLOE MYERS Attending Unavailable CHLOE MYERS Primary Care Unavailable CHLOE MYERS Referring Unavailable CHLOE MYERS Primary Care Unavailable CHLOE MYERS Primary Care Unavailable CHLOE MYERS Primary Care Unavailable DANIELLE RANDLE Referring Unavailable CHLOE MYERS Primary Care Unavailable SUSAN KERR Attending Unavailable CHLOE MYERS Primary Care Unavailable CHLOE MYERS Referring Unavailable Allergies Allergy Classification Reported Allergen(s) Allergy Type Date of Onset Reaction(s) Facility (3 sources) Sulfonamides (Antibiotic) drug allergy 07-10-2012 [facility] Work Phone: (1 source) Sulfonamides (Antibiotic) Drug allergy (disorder) [facility] Repository (20 sources) Sulfonamides (Antibiotic); Translations: [SULFA (SULFONAMIDE ANTIBIOTICS)] Drug Allergy 03-10-2005 [facility] Work Phone: Medications Current Medications Medication Drug Class(es) Dates Sig (Normalized) Sig (Original) acyclovir 800 mg oral tablet (1 source) Herpesvirus Nucleoside Analog DNA Polymerase Inhibitor, Herpes Simplex Virus Nucleoside Analog DNA Polymerase Inhibitor, Herpes Zoster Virus Nucleoside Analog DNA Polymerase Inhibitor Start: 11-29-2021 End: 12-06-2021 take 1 tablet by mouth five times daily acyclovir (ZOVIRAX) 800 mg tablet Take 1 tablet by mouth five times daily for 7 days. Take at first signs of outbreak. 35 tablet 0 11/29/2021 12/06/2021 Active Completed/Discontinued Medications Medication Drug Class(es) Dates Sig (Normalized) Sig (Original) Acetaminophen / oxyCODONE (11 sources) Opioid Agonist oxyCODONE-acetam in ophen 5-325 mg (PERCOCET) [id number] 200 actuat albuterol 0.09 mg/actuat metered dose inhaler (20 sources) beta2-Adrenergic Agonist Start: 04-28-2020 End: 11-29-2021 take 2 puff(s) by inhalation every four hours as needed for cough albuterol HFA (PROAIR HFA) 90 mcg/actuation inhaler Indications: SOB (shortness of breath) , Acute bronchitis, unspecified organism Inhale 2 Puffs as instructed every 4 hours as needed (FOR COUGH OR WHEEZE). 18 g 2 11/29/2021 Active Problems Active Problems Problem Classification Problem Date Documented Date Episodic/Chronic Abdominal hernia (20 sources) Diaphragmatic hernia; Translations: [Diaphragmatic hernia without obstruction or gangrene] Onset: 05-24-2011 06-18-2011 Episodic Acquired foot deformities (2 sources) Talipes planus; Translations: [Flat foot [pes planus] (acquired), right foot] Episodic Adjustment disorders (5 sources) Adjustment disorder with anxious mood; Translations: [Adjustment disorder with anxiety] Onset: 10-25-2022 Chronic Anxiety disorders (1 source) Mixed anxiety and depressive disorder; Translations: [Other specified anxiety disorders] 01-03-2023 Chronic Asthma (20 sources) Asthma; Translations: [Unspecified asthma, uncomplicated] Onset: 05-06-2016 06-15-2021 Chronic Cardiac dysrhythmias (17 sources) Atrial flutter; Translations: [Unspecified atrial flutter] Onset: 09-22-2022 Chronic Conditions associated with dizziness or vertigo (4 sources) Dizziness; Translations: [Lightheadedness] Onset: 08-17-2016 08-17-2016 Episodic Coronary atherosclerosis and other heart disease (20 sources) Coronary arteriosclerosis; Translations: [Angina pectoris] Onset: 07-10-2012 Resolved: 01-08-2015 07-10-2012 Chronic Coronary atherosclerosis and other heart disease (4 sources) Coronary angioplasty status; Translations: [Presence of coronary angioplasty implant and graft] Onset: 09-18-2012 09-18-2012 Episodic Diseases of white blood cells (2 sources) Leukocytosis; Translations: [Elevated white blood cell count, unspecified] Onset: 12-19-2022 Chronic Disorders of lipid metabolism (20 sources) Hyperlipidemia; Translations: [Hyperlipidemia, unspecified] Onset: 09-30-2005 09-19-2013 Chronic Esophageal disorders (20 sources) Gastroesophageal reflux disease; Translations: [Gastro-esophageal reflux disease without esophagitis] Onset: 05-24-2011 06-18-2011 Chronic Essential hypertension (20 sources) Hypertensive disorder; Translations: [Essential (primary) hypertension] Onset: 03-20-2012 07-10-2012 Chronic Fever of unknown origin (1 source) Fever; Translations: [Fever, unspecified] Episodic Headache; including migraine (1 source) Pain in face; Translations: [Facial pain] Episodic Nonspecific chest pain (6 sources) Chest pain, unspecified; Translations: [Chest pain, unspecified] Onset: 07-10-2012 07-10-2012 Episodic Osteoarthritis (1 source) Primary osteoarthritis of ankle; Translations: [Primary osteoarthritis, right ankle and foot] Chronic Other and unspecified benign neoplasm (2 sources) Personal history of colonic polyps; Translations: [History of colon polyps] Onset: 12-01-2022 Episodic Other bone disease and musculoskeletal deformities (1 source) Disorder of bone; Translations: [Disorder of bone, unspecified] Episodic Other connective tissue disease (1 source) Muscle pain; Translations: [Myalgia, unspecified site] Episodic Other connective tissue disease (1 source) Fibromyalgia; Translations: [Fibromyalgia] Onset: 06-27-2023 Episodic Other ear and sense organ disorders (1 source) Otalgia, right ear; Translations: [Otalgia, unspecified] Episodic Other endocrine disorders (20 sources) Adrenal mass; Translations: [Other specified disorders of adrenal gland] Onset: 05-06-2016 06-15-2021 Chronic Other eye disorders (1 source) Pain in eye; Translations: [Ocular pain, right eye] Episodic Other male genital disorders (20 sources) Induratio penis plastica; Translations: [Induration penis plastica] Onset: 11-05-2014 11-05-2014 Chronic Other male genital disorders (20 sources) Secondary erectile dysfunction; Translations: [Male erectile dysfunction, unspecified] Onset: 11-05-2014 11-05-2014 Chronic Other non-traumatic joint disorders (20 sources) Polyarthropathy; Translations: [Polyarthritis, unspecified] Onset: 09-14-2017 09-14-2017 Chronic Other non-traumatic joint disorders (1 source) Pain in unspecified joint; Translations: [Polyarthralgia] Onset: 06-27-2023 Episodic Other nutritional; endocrine; and metabolic disorders (15 sources) Body mass index (BMI) 35.0-35.9, adult; Translations: [Body mass index (BMI) 36.0-36.9, adult] Onset: 09-04-2013 Resolved: 01-04-2016 01-08-2015 Chronic Other nutritional; endocrine; and metabolic disorders (6 sources) Body mass index (BMI) 36.0-36.9, adult; Translations: [Body mass index (BMI) 36.0-36.9, adult] Onset: 09-04-2013 Resolved: 01-08-2015 09-04-2013 Chronic Other screening for suspected conditions (not mental disorders or infectious disease) (5 sources) Cardiovascular stress test abnormal; Translations: [Abnormal result of cardiovascular function study, unspecified] Onset: 08-21-2012 08-21-2012 Episodic Other upper respiratory infections (1 source) Bacterial sinusitis; Translations: [Chronic sinusitis, unspecified] Chronic Peripheral and visceral atherosclerosis (6 sources) Intermittent claudication; Translations: [Peripheral vascular disease, unspecified] Onset: 01-30-2013 Resolved: 01-08-2015 01-08-2015 Chronic Residual codes; unclassified (3 sources) Obstructive sleep apnea syndrome; Translations: [Obstructive sleep apnea (adult) (pediatric)] Onset: 01-08-2015 01-08-2015 Chronic Residual codes; unclassified (20 sources) Sleep apnea; Translations: [Sleep apnea, unspecified] Onset: 12-25-2013 12-25-2013 Chronic Substance-related disorders (1 source) Nicotine dependence, chewing tobacco, uncomplicated; Translations: [Nicotine dependence, chewing tobacco, uncomplicated] Onset: 10-30-2017 Chronic Unclassified (2 sources) Long-term drug therapy; Translations: [Other prison (current) drug therapy] Onset: 12-17-2012 12-17-2012 Unclassified (1 source) Gastric intestinal metaplasia; Translations: [Gastric intestinal metaplasia] Onset: 12-01-2022 Past or Other Problems Problem Classification Problem Date Documented Da te Episodic/Chronic Diabetes mellitus without complication (1 source) Hyperglycemia, unspecified; Translations: [Hyperglycemia] Onset: 12-29-2022 Episodic Fluid and electrolyte disorders (20 sources) Hypokalemia; Translations: [Hypokalemia] Onset: 09-13-2017 09-13-2017 Episodic Malaise and fatigue (5 sources) Fatigue; Translations: [Other fatigue] Onset: 10-30-2013 10-30-2013 Episodic Other aftercare (1 source) Other cook dessert (current) drug therapy; Translations: [Other cook dessert (current) drug therapy] Onset: 12-17-2012 12-17-2012 Episodic Other and unspecified benign neoplasm (8 sources) History of polyp of colon; Translations: [Personal history of colonic polyps] Onset: 12-01-2022 12-01-2022 Episodic Other bone disease and musculoskeletal deformities (1 source) Disorder of bone, unspecified; Translations: [Disorder of bone, unspecified] Onset: 09-26-2022 Episodic Other connective tissue disease (1 source) Pain in left foot; Translations: [Pain of left heel] Onset: 04-03-2023 Episodic Other connective tissue disease (1 source) Myalgia, unspecified site; Translations: [Myalgia] Onset: 09-26-2022 Episodic Other disorders of stomach and duodenum (8 sources) Intestinal metaplasia of gastric mucosa; Translations: [Gastric intestinal metaplasia] Onset: 12-01-2022 12-01-2022 Episodic Other lower respiratory disease (3 sources) Dyspnea; Translations: [Shortness of breath] Onset: 07-18-2012 07-18-2012 Episodic Other lower respiratory disease (20 sources) Nodule of lung; Translations: [Solitary pulmonary nodule] Onset: 05-06-2016 01-21-2019 Episodic Other screening for suspected conditions (not mental disorders or infectious disease) (20 sources) Abnormal result of cardiovascular function study, unspecified; Translations: [Decreased testosterone level ] Onset: 12-04-2013 12-04-2013 Episodic Other skin disorders (20 sources) Hyperhidrosis; Translations: [Generalized hyperhidrosis] Onset: 12-25-2013 12-25-2013 Episodic Pulmonary heart disease (20 sources) Pulmonary embolism; Translations: [Other pulmonary embolism without acute cor pulmonale] Onset: 10-11-2013 01-21-2019 Episodic Residual codes; unclassified (5 sources) Family history of sudden ; Translations: [FH: Hypertension] Onset: 07-10-2012 01-08-2015 Episodic Residual codes; unclassified (2 sources) FH: Hypertension; Translations: [Family history of ischemic heart disease and other diseases of the circulatory system] 03-24-2014 Episodic Residual codes; unclassified (2 sources) Family history of ischemic heart disease; Translations: [Family history of ischemic heart disease and other diseases of the circulatory system] Onset: 07-10-2012 07-10-2012 Episodic Residual codes; unclassified (20 sources) Contact with and (suspected) exposure to asbestos; Translations: [Personal history of contact with and (suspected) exposure to asbestos] Onset: 03-20-2012 03-20-2012 Episodic Spondylosis; intervertebral disc disorders; other back problems (20 sources) Spinal stenosis of lumbar region; Translations: [Spinal stenosis, lumbar region with neurogenic claudication] Onset: 06-22-2020 06-22-2020 Episodic Urinary tract infections (4 sources) Urinary tract infectious disease; Translations: [Urinary tract infection, site not specified] Onset: 02-08-2023 Episodic Results Test Name Value Interpretation Reference Range Facil ity Vital Signs Date Time Vital Sign Value Performing Clinician Facility 01-23-2023 17:22-0400 Diastolic blood pressure 70 mm[Hg] Chloe Myers MD Work Phone: [facility] 01-23-2023 17:22-0400 Systolic blood pressure 138 mm[Hg] Chloe Myers MD Work Phone: [facility] 01-23-2023 16:52-0400 Body height 195.6 cm Chloe Myers MD Work Phone: [facility] 01-23-2023 16:52-0400 Body weight 148.96 kg Chloe Myers MD Work Phone: [facility] 01-23-2023 16:52-0400 Heart rate 64 /min Chloe Myers MD Work Phone: [facility] 01-23-2023 16:52-0400 SaO2% (BldA) [Mass fraction] 97 % Chloe Myers MD Work Phone: [facility] 12-19-2022 15:34-0400 Body height 195.6 cm Chloe Myers MD Work Phone: [facility] 12-19-2022 15:34-0400 Body weight 149.41 kg Chloe Myers MD Work Phone: [facility] 12-19-2022 15:34-0400 Diastolic blood pressure 68 mm[Hg] Chloe Myers MD Work Phone: [facility] 12-19-2022 15:34-0400 Heart rate 64 /min Chloe Myers MD Work Phone: [facility] 12-19-2022 15:34-0400 SaO2% (BldA) [Mass fraction] 97 % Chloe Myers MD Work Phone: [facility] 12-19-2022 15:34-0400 Systolic blood pressure 138 mm[Hg] Chloe Myers MD Work Phone: [facility] 12-14-2022 16:17-0400 Body temperature 100.9 [degF] Chloe Myers MD Work Phone: [facility] 12-14-2022 16:17-0400 Body weight 145.69 kg Chloe Myers MD Work Phone: [facility] 12-14-2022 16:17-0400 Diastolic blood pressure 60 mm[Hg] Chloe Myers MD Work Phone: [facility] 12-14-2022 16:17-0400 Heart rate 80 /min Chloe Myers MD Work Phone: [facility] 12-14-2022 16:17-0400 SaO2% (BldA) [Mass fraction] 99 % Chloe Myers MD Work Phone: [facility] 12-14-2022 16:17-0400 Systolic blood pressure 130 mm[Hg] Chloe Myers MD Work Phone: [facility] 10-25-2022 14:54-0400 Diastolic blood pressure 66 mm[Hg] Chloe Myers MD Work Phone: [facility] 10-25-2022 14:54-0400 Systolic blood pressure 130 mm[Hg] Chloe Myers MD Work Phone: [facility] 10-25-2022 14:29-0400 Body height 195.6 cm Chloe Myers MD Work Phone: [facility] 10-25-2022 14:29-0400 Body weight 147.42 kg Chloe Myers MD Work Phone: [facility] 10-25-2022 14:29-0400 Heart rate 78 /min Chloe Myers MD Work Phone: [facility] 10-25-2022 14:29-0400 SaO2% (BldA) [Mass fraction] 98 % Chloe Myers MD Work Phone: [facility] 09-22-2022 16:16-0400 Body temperature 98.49 [degF] Chloe Myers MD Work Phone: [facility] 09-22-2022 16:16-0400 Body weight 150.14 kg Chloe Myers MD Work Phone: [facility] 09-22-2022 16:16-0400 Diastolic blood pressure 62 mm[Hg] Chloe Myers MD Work Phone: [facility] 09-22-2022 16:16-0400 Heart rate 72 /min Chloe Myers MD Work Phone: [facility] 09-22-2022 16:16-0400 SaO2% (BldA) [Mass fraction] 97 % Chloe Myers MD Work Phone: [facility] 09-22-2022 16:16-0400 Systolic blood pressure 146 mm[Hg] Chloe Myers MD Work Phone: [facility] 02-12-2022 10:50-0400 Body temperature 98.2 [degF] Carolann Lance REINSURANCE CLAIM ANALYST.HEARING THERAPIST Work Phone: [facility] 02-12-2022 10:50-0400 Body weight 147.42 kg Carolann Lance REINSURANCE CLAIM ANALYST.HEARING THERAPIST Work Phone: [facility] 02-12-2022 10:50-0400 Diastolic blood pressure 80 mm[Hg] Carolann Lance REINSURANCE CLAIM ANALYST.HEARING THERAPIST Work Phone: [facility] 02-12-2022 10:50-0400 Heart rate 72 /min Carolann Lance REINSURANCE CLAIM ANALYST.HEARING THERAPIST Work Phone: [facility] 02-12-2022 10:50-0400 Respiratory rate 16 /min Carolann Lance REINSURANCE CLAIM ANALYST.HEARING THERAPIST Work Phone: [facility] 02-12-2022 10:50-0400 SaO2% (BldA) [Mass fraction] 98 % Carolann Lance REINSURANCE CLAIM ANALYST.HEARING THERAPIST Work Phone: [facility] 02-12-2022 10:50-0400 Systolic blood pressure 152 mm[Hg] Carolann Lance MOYER.HEARING THERAPIST Work Phone: [facility] 10-14-2021 12:04-0400 Body temperature 97.7 [degF] Kisha Wen APRN.HEARING THERAPIST Work Phone: [facility] 10-14-2021 12:04-0400 Body weight 148.87 kg Kisha Wen APRN.HEARING THERAPIST Work Phone: [facility] 10-14-2021 12:04-0400 Diastolic blood pressure 82 mm[Hg] Kisha Wen APRN.HEARING THERAPIST Work Phone: [facility] 10-14-2021 12:04-0400 Heart rate 64 /min Kisha Wen APRN.HEARING THERAPIST Work Phone: [facility] 10-14-2021 12:04-0400 Respiratory rate 20 /min Kisha Wen APRN.HEARING THERAPIST Work Phone: [facility] 10-14-2021 12:04-0400 SaO2% (BldA) [Mass fraction] 99 % Kisha Wen APRN.HEARING THERAPIST Work Phone: [facility] 10-14-2021 12:04-0400 Systolic blood pressure 150 mm[Hg] Kisha Wen APRN.HEARING THERAPIST Work Phone: [facility] 12-14-2016 16:00-0400 BMI (Body Mass Index) 37.68 kg/m2 [facility] Work Phone: 12-14-2016 16:00-0400 BP Diastolic 70 mm[Hg] [facility] Work Phone: 12-14-2016 16:00-0400 BP Systolic 132 mm[Hg] [facility] Work Phone: 12-14-2016 16:00-0400 Pulse (Heart Rate) 84 /min [facility] Work Phone: 12-14-2016 16:00-0400 Weight 144.15 kg Erlin [facility] Work Phone: 08-17-2016 15:38-0500 Heart rate 80 /min [facility] Work Phone: 08-17-2016 14:56-0500 Height 195.58 cm Erlin [facility] Work Phone: 08-17-2016 14:56-0500 Pulse Oximetry 98 % [facility] Work Phone: 08-17-2016 14:56-0500 Respiratory Rate 20 /min [facility] Work Phone: 01-04-2016 14:27-0400 BSA (Body Surface Area) 2.7 m2 [facility] Work Phone: 10-30-2013 11:11-0400 Heart rate 396 ms [facility] Work Phone: Encounters Encounter Date Encounter Type Care Provider Facility Start: 07-05-2023 End: 07-05-2023 ambulatory ROBBY HERNANDES Facility:[facility] Start: 07-03-2023 ambulatory CHLOE MYERS Facility :[facility] Start: 06-30-2023 End: 07-01-2023 ambulatory ROBBY HERNANDES Facility:[facility] Start: 06-27-2023 End: 06-28-2023 ambulatory CHLOE Sanders DENI Facility:[facility] Start: 06-14-2023 End: 06-14-2023 ambulatory CHLOE Sanders DENI Facility:[facility] Start: 06-08-2023 Refill Chloe Myers MD Work Phone: [facility] Procedures Date Procedure Procedure Detail Performing Clinician Start: 12-14-2022 Urnls dip stick/tabl et rgnt auto w/o microscopy Chloe Myers MD Work Phone: Start: 12-01-2022 Colonoscopy NA Hung PA-C Work Phone: Start: 09-26-2022 Lipid 1996 panel - S pierre or Plasma Chloe Myers MD Work Phone: Start: 04-20-2022 Lipid panel [facility] Provid er Start: 01-28-2019 Colonoscopy Oliva myrick PA-C Work Phone: Start: 01-24-2019 Colonoscopy Kisha Wen APRN.HEARING THERAPIST Work Phone: Start: 05-22-2018 Adult depression scr eening assessment Oliva Gutierrez PA-C Work Phone: Start: 12-16-2016 End: 06-01-2017 *Hepatic Function Panel Willis Alfred MD Start: 12-16-2016 End: 06-01-2017 Lipid panel [AGGREGATE] Willis Alfred MD Start: 12-14-2016 End: 12-14-2016 Follow Up Appt 6 months Willis Alfred MD Start: 12-14-2016 End: 06-01-2017 Follow Up Appt Other Willis Alfred MD Start: 12-14-2016 End: 12-14-2016 MMM Willis Alfred MD Start: 08-17-2016 End: 08-17-2016 Follow Up Appt 3 months Lorena Cruz INJECTOR ASSEMBLER Work Phone: Start: 08-17-2016 End: 08-17-2016 MMM Lorena Cruz INJECTOR ASSEMBLER Work Phone: Start: 01-04-2016 End: 01-04-2016 Dietary management education, guidance, and counseling Erlin Mohr Start: 01-04-2016 End: 01-15-2016 Ct thorax w/dye Willis Alfred MD Start: 01-04-2016 End: 11-22-2016 Echocardiography Willis Alfred MD Start: 01-04-2016 End: 01-04-2016 Electrocardiogram, complete Willis johnson MD Start: 01-04-2016 End: 01-04-2016 Follow Up Appt Other Willis Alfred MD Start: 01-04-2016 End: 11-22-2016 Nuclear stress test -exercise Willis higgins MD Start: 10-19-2015 End: 11-22-2016 *Hepatic Function Panel Willis Alfred MD Start: 10-19-2015 End: 11-22-2016 Lipid panel [AGGREGATE] Willis Alfred MD Start: 04-20-2015 End: 04-20-2015 *Hepatic Function Panel Willis Alfred MD Start: 04-20-2015 End: 04-20-2015 Lipid panel [AGGREGATE] Willis Alfred MD Start: 03-31-2015 End: 04-20-2015 *Hepatic Function Panel Dyana ferrer PA-C Work Phone: Start: 03-31-2015 End: 04-01-2015 Documentation of current medications Dyana Alvarez PA-C Work Phone: Start: 03-31-2015 End: 03-31-2015 Follow Up Appt 6 months Dyana ferrer PA-C Work Phone: Start: 03-31-2015 End: 04-20-2015 Lipid panel [AGGREGATE] Dyana ferrer PA-C Work Phone: Start: 03-31-2015 End: 03-31-2015 PFM Dyana Alvarez PA-C Work Phone: Start: 03-31-2015 End: 04-20-2015 Thyroid stimulating hormone (TSH) Dyana Alvarez PA-C Work Phone: Start: 03-31-2015 End: 04-20-2015 Thyroxine (T4) Dyana Alvarez PA-C Work Phone: Start: 01-08-2015 End: 01-09-2015 BNP Dyana Alvarez PA-C Work Phone: Start: 01-08-2015 End: 01-09-2015 Documentation of current medications Dyana Alvarez PA-C Work Phone: Start: 01-08-2015 End: 03-25-2015 Follow Up Appt Other Dyana hughes PA-C Work Phone: Start: 09-29-2014 End: 10-22-2014 *Hepatic Function Panel Willis Alfred MD Start: 09-29-2014 End: 10-22-2014 Lipid panel [AGGREGATE] Willis Alfred MD Start: 09-22-2014 End: 09-22-2014 Follow Up Appt 6 months Willis Alfred MD Start: 09-22-2014 End: 09-22-2014 Follow Up BP Check Willis Alfred MD Start: 09-22-2014 End: 09-22-2014 MMM Willis Alfred MD Start: 03-24-2014 End: 03-24-2014 Follow Up Appt 6 months Dyana ferrer PA-C Work Phone: Start: 03-24-2014 End: 03-24-2014 Follow Up Appt Other Dyana hughes PA-C Work Phone: Start: 03-24-2014 End: 03-24-2014 PFM Dyana Alvarez PA-C Work Phone: Start: 03-19-2014 End: 03-31-2014 *Hepatic Function Panel Dyana ferrer PA-C Work Phone: Start: 03-19-2014 End: 03-31-2014 Lipid panel [AGGREGATE] Dyana ferrer PA-C Work Phone: Start: 12-04-2013 End: 01-06-2014 *BMP Robby Steen MD Work Phone: Start: 12-04-2013 End: 01-06-2014 CBC W Auto Differential panel - Blood Robby Steen MD Work Phone: Start: 12-04-2013 End: 03-25-2015 Chest x-ray Robby Steen MD Work Phone: Start: 12-04-2013 End: 01-06-2014 Coagulation factor induced.INR assay in platelet poor plasma Robby Steen MD Work Phone: Start: 12-04-2013 End: 03-12-2014 Electrocardiogram, complete Robby kuhn MD Work Phone: Start: 12-04-2013 End: 03-12-2014 Left Heart Cath Robby Steen MD Work Phone: Start: 12-02-2013 End: 12-05-2013 Stress Echocardiogram (treadmill) Robby Steen MD Work Phone: Start: 10-30-2013 End: 01-08-2015 Follow Up Appt Other Dyana hughes PA-C Work Phone: Start: 09-04-2013 End: 09-16-2013 *Hepatic Function Panel Willis Alfred MD Start: 09-04-2013 End: 09-04-2013 Follow Up Appt 6 months Willis Alfred MD Start: 09-04-2013 End: 01-08-2015 Follow Up Appt Other Willis Alfred MD Start: 09-04-2013 End: 09-16-2013 Lipid panel [AGGREGATE] Willis Alfred MD Start: 09-04-2013 End: 09-04-2013 MMM Willis Alfred MD Start: 06-17-2013 End: 09-16-2013 *Hepatic Function Panel Willis Alfred MD Start: 06-17-2013 End: 09-16-2013 Lipid panel [AGGREGATE] Willis Alfred MD Start: 01-30-2013 End: 12-02-2013 Arterial exam Willis Alferd MD Start: 01-30-2013 End: 01-30-2013 Follow Up Appt 6 months Willis Alfred MD Start: 01-30-2013 End: 01-30-2013 PFM Willis Alfred MD Start: 01-30-2013 End: 12-02-2013 Pulmonary Fuction Test - complete Willis Alfred MD Start: 12-17-2012 End: 12-17-2012 *BMP Willis Alfred MD Start: 12-17-2012 End: 12-02-2013 CBC W Auto Differential panel - Blood Willis Alfred MD Start: 12-17-2012 End: 12-02-2013 Chest x-ray Willis Alfred MD Start: 12-17-2012 End: 12-02-2013 Coagulation factor induced.INR assay in platelet poor plasma Willis Alfred MD Start: 12-17-2012 End: 12-17-2012 Electrocardiogram, complete Willis johnson MD Start: 12-17-2012 End: 12-02-2013 Follow Up Appt Other Willis Alfred MD Start: 12-17-2012 End: 12-02-2013 Left Heart Cath Willis Alfred MD Start: 12-17-2012 End: 12-02-2013 PFM Willis Alfred MD Start: 2012 End: 12-17-2012 *Hepatic Function Panel Dyana ferrer PA-C Work Phone: Start: 2012 End: 12-14-2012 Cardiac Rehab Dyana Alvarez PA-C Work Phone: Start: 2012 End: 10-23-2012 Electrocardiogram, complete Dyana Pantoja PA-C Work Phone: Start: 2012 End: 2012 Follow Up Appt Other Dyana hughes PA-C Work Phone: Start: 2012 End: 12-17-2012 Lipid panel [AGGREGATE] Dyana ferrer PA-C Work Phone: Start: 09-03-2012 End: 09-04-2012 *BMP Dyana Alvarez PA-C Work Phone: Start: 09-03-2012 End: 09-03-2012 aPTT Dyana Alvarez PA-C Work Phone: Start: 09-03-2012 End: 09-04-2012 CBC W Auto Differential panel - Blood Dyana Alvarez PA-C Work Phone: Start: 09-03-2012 End: 09-04-2012 Chest x-ray Dyana Alvarez PA-C Work Phone: Start: 09-03-2012 End: 09-03-2012 Coagulation factor induced.INR assay in platelet poor plasma Dyana Alvarez PA-C Work Phone: Start: 09-03-2012 End: 09-04-2012 Electrocardiogram, complete Dyana Pnatoja PA-C Work Phone: Start: 09-03-2012 End: 2012 Follow Up Appt Other Dyana hughes PA-C Work Phone: Start: 09-03-2012 End: 2012 Left Heart Cath Dyana Alvarez PA-C Work Phone: Start: 09-03-2012 End: 2012 MMM Dyana Alvarez PA-C Work Phone: Start: 08-21-2012 End: 2012 *BMP Willis Alfred MD Start: 08-21-2012 End: 2012 aPTT Willis Alfred MD Start: 08-21-2012 End: 2012 CBC W Auto Differential panel - Blood Willis Alfred MD Start: 08-21-2012 End: 2012 Chest x-ray Willis Alfred MD Start: 08-21-2012 End: 2012 Coagulation factor induced.INR assay in platelet poor plasma Willis Alfred MD Start: 08-21-2012 End: 2012 Electrocardiogram, complete Willis johnson MD Start: 08-21-2012 End: 2012 Left Heart Cath Willis Alfred MD Start: 07-18-2012 End: 2012 Echocardiography Willis Alfred MD Start: 07-18-2012 End: 07-18-2012 Electrocardiogram, complete Willis johnson MD Start: 07-18-2012 End: 07-18-2012 Follow Up Appt 6 months Willis Alfred MD Start: 07-18-2012 End: 2012 Nuclear stress test -exercise Willis higgins MD Start: 07-18-2012 End: 07-18-2012 PFM Willis Alfred MD Plan of Treatment Date Care Activity Detail Author Start: 12-02-2027 Colonoscopy COLONOSCOPY [facility] Start: 12-02-2027 COLORECTAL CANCER SCREENING COLORECTAL CANCER SCREENING [facility] Start: 12-02-2027 Screening for malign ant neoplasm of colon [facility] Start: 09-27-2027 Lipid panel Lipid Screening [facility] Start: 09-27-2027 LIPID SCREEN LIPID SCREEN [facility] Start: 04-20-2027 LIPID SCREEN LIPID SCREEN [facility] Start: 02-08-2026 Diabetes Screening Diabetes Screenin g [facility] Start: 12-29-2025 DIABETES SCREEN DIABETES SCREEN [facility] Start: 12-19-2025 DIABETES SCREEN DIABETES SCREEN [facility] Start: 10-22-2025 PROSTATE CANCER SCRE ENING DISCUSSION PROSTATE CANCER SCREENING DISCUSSION [facility] Start: 10-22-2025 Prostate specific an tigen measurement Prostate Cancer Screening Discussion [facility] Start: 09-26-2025 DIABETES SCREEN DIABETES SCREEN [facility] Start: 12-22-2024 LIPID SCREEN LIPID SCREEN [facility] Start: 10-14-2024 DIABETES SCREEN DIABETES SCREEN [facility] Start: 06-04-2024 DIABETES SCREEN DIABETES SCREEN [facility] Start: 04-03-2024 BP Controlled (<130/80) BP Controlle d (<130/80) [facility] Start: 01-24-2024 ANNUAL PCP TEAM OIL FIELD CASER KEILA DISEASE VISIT ANNUAL PCP TEAM CHRONIC DISEASE VISIT [facility] Start: 12-20-2023 ANNUAL PCP TEAM OIL FIELD CASER KEILA DISEASE VISIT ANNUAL PCP TEAM CHRONIC DISEASE VISIT [facility] Start: 12-15-2023 ANNUAL PCP TEAM OIL FIELD CASER KEILA DISEASE VISIT ANNUAL PCP TEAM CHRONIC DISEASE VISIT [facility] Start: 10-26-2023 ANNUAL PCP TEAM OIL FIELD CASER KEILA DISEASE VISIT ANNUAL PCP TEAM CHRONIC DISEASE VISIT [facility] Start: 09-27-2023 Hepatitis B surface antibody level LDL CHOLESTEROL [facility] Start: 09-23-2023 ANNUAL PCP TEAM OIL FIELD CASER KEILA DISEASE VISIT ANNUAL PCP TEAM CHRONIC DISEASE VISIT [facility] Start: 09-23-2023 COVID-19 VACCINE (4 - Booster for Pfizer series) COVID-19 VACCINE (4 - Booster for Pfizer series) [facility] Immunizations Immunization Date Immunization Notes Care Provider Fa cili 07-11-2019 influenza, seasonal, injectable, preservative free Oliva Gutierrez PA-C Work Phone: [facility] 07-11-2019 influenza virus vacc ine, unspecified formulation Chloe Myers MD Work Phone: [facility] 05-01-2015 influenza, seasonal, injectable, preservative free Oliva Mykeblanc PA-C Work Phone: [facility] 04-29-2015 influenza, seasonal, injectable Oliva Mykeblanc PA-C Work Phone: [facility] 05-20-2013 influenza virus vacc ine, unspecified formulation Oliva Mykeblanc PA-C Work Phone: [facility] 04-19-2013 influenza, seasonal, injectable, preservative free Oliva Mykeblanc PA-C Work Phone: [facility] 04-19-2012 pneumococcal polysaccharide vaccine, 23 valent Oliva Mykeblanc PA-C Work Phone: [facility] 03-18-2011 influenza virus vacc ine, unspecified formulation Oliva Mykeblanc PA-C Work Phone: [facility] Work Phone: 03-18-2011 pneumococcal polysaccharide vaccine, 23 valent Oliva Mykeblanc PA-C Work Phone: [facility] Work Phone: Payers Date Payer Category Payer Medicare [id number] 2022 Unknown [employer] D[employer] SUPPLEMENT [id number] 2022-Present [phone] [address] [place] [address] Indemnity [id number] 2022 Private Health Insurance [id number] 2022 Medicare MEDICARE MEDICAR E A AND B [id number] 2022-Present [phone] [address] [address] [place] [address] Medicare [id number] 2022 Medicare [id number] 2019 Private Health Insurance [employer] Emma TELLES PPO [id number] 2019-Present [phone] [address] [place] [address] O [id number] 2019 Private Health Insurance [id number] Social History Date Type Detail Facility Start: 02-12-2022 End: 12-15-2022 Tobacco smoking status NHIS Ex-smoker [facility] Work Phone: End: 02-08-1987 History of tobacco use Current smoker [facility] End: 02-08-1987 History of tobacco use Cigarette Smoker [facility] End: 12-03-2017 History of tobacco use Chews Tobacco [facility] Start: 09-04-2021 End: 12-14-2022 Alcohol intake Current drinker of alcohol (finding) [facility] Start: 05-24-2020 End: 09-04-2021 Alcohol intake [facility] Start: 05-04-2016 History SDOH Alcohol Comment rare [facility] Start: 09-06-2013 End: 02-12-2022 Tobacco Comment patient smoked for a few months in 2006 [facility] Start: 1955 Sex Assigned At Not on file C [facility] Start: 08-28-2021 End: 12-11-2021 Exposure to SARS-CoV-2 (event) Not sure [facility] Start: 11-29-2021 History SDOH Alcohol Frequency 98 [facility] Start: 11-29-2021 History SDOH Physica l Activity DPW 0 [facility] Start: 11-29-2021 History SDOH Housing Unable to Pay 3 [facility] Start: 02-12-2022 Tobacco use and exposure User of smokeless tobacco [facility] Work Phone: Start: 12-15-2022 Tobacco use and exposure Former smokeless tobacco user [facility] Start: 12-19-2022 End: 04-03-2023 Alcohol intake Ex-drinker (finding) [facility] Start: 12-15-2022 Tobacco Comment patient smoked for a few months in 2006Quit chew June 2022 [facility] Start: 05-24-2020 End: 11-29-2021 Social connection and isolation panel [facility] In a typical week, h ow many times do you talk on the telephone with family, friends, or neighbors? Patient refused [facility] Are you now , , , , never or living with a partner? Refused [facility] (I/We) worried wheth er (my/our) food would run out before (I/we) got money to buy more. DK or Refused [facility] Medical Equipment Procedure Code Equipment Code Equipment Origin al Text Equipment Identifier Dates Pros Penl Ams 70 0 Acc Kt - [id number] Start: 01-29-2015 Pros Penl Ams 70 0ms 18cm - [id number] Start: 01-29-2015 Pros Penl 700cx 3cm Rear Tip - [id number] Start: 01-29-2015 Pros Penl Ams 70 0ms Resvr 65ml - [id number] Start: 01-29-2015 Clinical Notes 02-08-2007 to 06-30-2023 Telephone Encounter - AnthonyBeverley LPN - 06/08/2023 8:28 AM Chloe Murray MD - 01/23/2023 4:53 PM EDTTelephone Encounter - [facility] - 01/03/2023 2:36 PM EDT Note Date & Type Note Facility 06-30-2023 Note HNO ID: [id number] Author: ROBBY HERNANDES MD Service: ? Author Type: Physician Type: Progress Notes Filed: 07/10/2023 13:16 Note Text: HISTORY AND PHYSICAL Lazaro Chapa 1955 REFERRING PHYSICIAN: Chloe Myers MD CHIEF COMPLAINT: Consult (Umbilical hernia.) HPI: Lazaro is a 67 year old male with a complaint of a bulge and discomfort in his umbilical region. The patient notes discomfort in this area with lifting, straining, and coughing. The symptoms have increased, over the past 1 month. The patient notes no symptoms of bowel obstruction and denies nausea or vomiting. The patient was seen by his primary care physician who felt the patient has a hernia. Lazaro was referred for evaluation and treatment. The patient is being seen by me today at the request of . Chloe Myers MD for my opinion and advice regarding Umbilical hernia without obstruction or gangrene. PAST MEDICAL HISTORY Diagnosis Date Abdominal pain, unspecified site Adrenal nodule (HCC) unchanged after >2 years Anxiety state, unspecified Asthma childhood CAD (coronary artery disease) Chronic low back pain Diaphragmatic hernia without mention of obstruction or gangrene Diaphragmatic hernia without mention of obstruction or gangrene Diverticulosis of colon (without mention of hemorrhage) Esophageal reflux Essential hypertension, benign 03/20/2012 Fibromyalgia Hemorrhoids Hypogonadism male treated per urology Impotence of organic origin Lung nodule repeat ct in 01/02 Palpitations Personal history of colonic polyps 2004 polyps Pulmonary embolism (HCC) completed treatment per pulm Recurrent pneumonia 14 times PAST SURGICAL HISTORY Procedure Laterality Date ADENOIDECTOMY PRIMARY Adenoidectomy COLONOSCOPY N/A 07/20/2016 MAC COLONOSCOPY 01/24/2019 adenomatous colon polyps, repeat in 3 years COLONOSCOPY FLX DX W/COLLJ SPEC WHEN PFRMD 2004 Colonoscopy COLONOSCOPY FLX DX W/COLLJ SPEC WHEN PFRMD 03/07/2011 wnl EGD N/A 07/20/2016 MAC EGD 01/24/2019 gastritis and gastric polyps ESOPHAGOGASTRODUODENOSCOPY TRANSORAL DIAGNOSTIC 05/24/2011 EGD F TRIAL SPINAL CORD STIMULATOR HEMORRHOIDECTOMY XTRNL 2/> COLUMN/GROUP 04/30/2015 KNEE SURGERY HX Right 1988 LAPS SURG CHOLECYSTECTOMY W/CHOLANGIOGRAPHY 2004 [facility] - Dr. Hernandes OPEN REPAIR OF ROTATOR CUFF ACUTE Rotator cuff repair PERCUTANEOUS CORONARY INTERVENTION 2006 stent to LAD TONSILLECTOMY PRIMARY/SECONDARY Tonsillectomy Current Outpatient Medications Medication Sig gabapentin (NEURONTIN) 300 mg capsule Take 1 capsule by mouth daily at bedtime for 90 days. For three days and then increase bid. allopurinol (ZYLOPRIM) 300 mg tablet Take 1 tablet by mouth once daily. For gout. albuterol HFA (PROAIR HFA) 90 mcg/actuation inhaler Inhale 2 Puffs as instructed every 4 hours as needed (FOR COUGH OR WHEEZE). potassium chloride (K-TAB) 10 mEq tablet Take 2 tablets by mouth once daily. apixaban (ELIQUIS) 5 mg tab(s) Take 1 tablet by mouth twice daily. atorvastatin (LIPITOR) 20 mg tablet Take 1 tablet by mouth daily at bedtime. For cholesterol. amLODIPine (NORVASC) 5 mg tablet Take 1 tablet by mouth once daily. testosterone (ANDROGEL PUMP) 20.25 mg/1.25 gram (1.62 %) transdermal gel APPLY 4 PUMPS TOPICALLY DAILY. oxyCODONE-acetaminophen 5-325 mg (PERCOCET) losartan (COZAAR) 25 mg tablet Take 1 tablet by mouth once daily. esomeprazole (NEXIUM) 40 mg capsule Take 1 capsule by mouth twice daily before meals. CPAP Requires replacement machine at same settings. Cholecalciferol, Vitamin D3, (VITAMIN D) 1,000 unit cap Take 1 capsule by mouth once daily. cyanocobalamin (VITAMIN B-12) 1,000 mcg tab Take 1,000 mcg by mouth once daily. MULTIVITAMIN TAB Take one(1) tablet daily BY MOUTH. No current facility-administered medications for this visit. ALLERGIES: Sulfa (Sulfonamide Antibiotics) PERSONAL HISTORY: Social History Tobacco Use Smoking status: Former Packs/day: 2.00 Years: 5.00 Additional pack years: 0.00 Total pack years: 10.00 Types: Cigarettes Quit date: 02/08/1987 Years since quittin.4 Smokeless tobacco: Former Types: Chew Quit date: 12/03/2017 Tobacco comments: patient smoked for a few months in 2006 Quit chew June 2022 Vaping Use Vaping Use: Never used Substance Use Topics Alcohol use: Not Currently Drug use: Not Currently Comment: marijuana in past not since 20 y/o FAMILY HISTORY: FAMILY HISTORY Problem Relation Age of Onset Hypertension Mother Heart Mother Stroke Mother Allergies Mother Breast Cancer Mother Heart Father of [place] Allergies Father Asthma Daughter Allergies Sister Allergies Brother Allergies Daughter REVIEW OF SYMPTOMS: The review of systems data was entered by the nurse and reviewed by wv Nursing Notes: Natalie Rayo RN 06/30/2023 10:34 AM Signed REVIEW OF SYSTEMS: General: The patient denies fati (more content not included)... [facility] 06-27-2023 Note HNO ID: [id number] Author: CHLOE MYERS MD Service: ? Author Type: Physician Type: Progress Notes Filed: 06/27/2023 15:52 Note Text: Patient presents with: Follow Up HPI: Patient presents today for office visit for follow up. Having a lot of pain. All over. Refers to when taking Prednisone it's better. Would like to discuss medication to help with his pain. Takes Percocet very seldomly. He does not want to have to take this all the time. Was diagnosed years ago with fibromyalgia. Has never seen rheumatology. He hurts all over. His muscles and arms are painful. 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 No swelling in fingers. No dry eyes. Does have a family hx of rheumatoid arthritis. Feels better in am. Gets worse as day goes on. Sees Dr. Haq currently for back injections. Has chronic back pain and discomfort whenever he stands for any period of time. Has nothing set up recently. Has cream for medicinal marijuana topically. Has rare percocet he has gotten from Dr Haq. He would like to return to work. Has had surgery in the past and had a spinal stimulatory. Has long standing hernia of his umbilicus that is more painful. Has been there for years. Wants to see about getting it taking care of . MEDICATIONS: Current Outpatient Medications Medication Sig allopurinol (ZYLOPRIM) 300 mg tablet Take 1 tablet by mouth once daily. For gout. albuterol HFA (PROAIR HFA) 90 mcg/actuation inhaler Inhale 2 Puffs as instructed every 4 hours as needed (FOR COUGH OR WHEEZE). potassium chloride (K-TAB) 10 mEq tablet Take 2 tablets by mouth once daily. apixaban (ELIQUIS) 5 mg tab(s) Take 1 tablet by mouth twice daily. atorvastatin (LIPITOR) 20 mg tablet Take 1 tablet by mouth daily at bedtime. For cholesterol. amLODIPine (NORVASC) 5 mg tablet Take 1 tablet by mouth once daily. testosterone (ANDROGEL PUMP) 20.25 mg/1.25 gram (1.62 %) transdermal gel APPLY 4 PUMPS TOPICALLY DAILY. oxyCODONE-acetaminophen 5-325 mg (PERCOCET) losartan (COZAAR) 25 mg tablet Take 1 tablet by mouth once daily. esomeprazole (NEXIUM) 40 mg capsule Take 1 capsule by mouth twice daily before meals. CPAP Requires replacement machine at same settings. Cholecalciferol, Vitamin D3, (VITAMIN D) 1,000 unit cap Take 1 capsule by mouth once daily. cyanocobalamin (VITAMIN B-12) 1,000 mcg tab Take 1,000 mcg by mouth once daily. MULTIVITAMIN TAB Take one(1) tablet daily BY MOUTH. No current facility-administered medications for this visit. ALLERGIES: ALLERGIES Allergen Reactions Sulfa (Sulfonamide * Rash PAST MEDICAL HISTORY Diagnosis Date Abdominal pain, unspecified site Adrenal nodule (HCC) unchanged after >2 years Anxiety state, unspecified Asthma childhood CAD (coronary artery disease) Chronic low back pain Diaphragmatic hernia without mention of obstruction or gangrene Diaphragmatic hernia without mention of obstruction or gangrene Diverticulosis of colon (without mention of hemorrhage) Esophageal reflux Essential hypertension, benign 03/20/2012 Fibromyalgia Hemorrhoids Hypogonadism male treated per urology Impotence of organic origin Lung nodule repeat ct in 01/02 Palpitations Personal history of colonic polyps 2004 polyps Pulmonary embolism (HCC) completed treatment per pulm Recurrent pneumonia 14 times PAST SURGICAL HISTORY Procedure Laterality Date ADENOIDECTOMY PRIMARY Adenoidectomy COLONOSCOPY N/A 07/20/2016 MAC COLONOSCOPY 01/24/2019 adenomatous colon polyps, repeat in 3 years COLONOSCOPY FLX DX W/COLLJ SPEC WHEN PFRMD 2004 Colonoscopy COLONOSCOPY FLX DX W/COLLJ SPEC WHEN PFRMD 03/07/11 wnl EGD N/A 07/20/2016 MAC EGD 01/24/2019 gastritis and gastric polyps ESOPHAGOGASTRODUODENOSCOPY TRANSORAL DIAGNOSTIC 05/24/2011 EGD HEMORRHOIDECTOMY XTRNL 2/> COLUMN/GROUP 04/30/15 KNEE SURGERY HX Right 1988 LAPS SURG CHOLECYSTECTOMY W/CHOLANGIOGRAPHY 2004 [facility] - Dr. Hernandes OPEN REPAIR OF ROTATOR CUFF ACUTE Rotator cuff repair PERCUTANEOUS CORONARY INTERVENTION 2006 stent to LAD TONSILLECTOMY PRIMARY/SECONDARY Tonsillectomy FAMILY HISTORY Problem Relation Age of Onset Hypertension Mother Heart Mother Stroke Mother Allergies Mother Breast Cancer Mother Heart Father of [place] Allergies Father Asthma Daughter Allergies Sister Allergies Brother Allergies Daughter Social History Tobacco Use Smoking status: Former Packs/day: 2.00 Years: 5.00 Additional pack years: 0.00 Total pack years: 10.00 Types: Cigarettes Quit date: 02/08/1987 Years since quittin.4 Smokeless tobacco: Former Types: Chew Quit date: 12/03/2017 Tobacco comments: patient smoked for a few months in 2006 Quit chew June 2022 Vaping Use Vaping Use: Never used Substance Use Topics Alcohol use: Not Currently Drug use: Not Currently Comment: marijuana in past not since 20 y/o Reviewed current medications, (more content not included)... [facility] 06-14-2023 Note HNO ID: [id number] Author: Susan Kerr APRN.ROSITA Service: ? Author Type: Nurse Practitioner Type: Progress Notes Filed: 06/14/2023 5:13 PM Note Text: This is a 67 year old male who presents today with: Patient presents with: Acute Visit: Headache, sinus, cough, chest congestion, shortness of breath, wheezing, no fever; symptoms started 1.5 weeks ago; using Nyquil/Aleve HISTORY OF PRESENT ILLNESS: Lazaro Chapa is a 67 year old male. Patient presents with: Acute Visit: Headache, sinus, cough, chest congestion, shortness of breath, wheezing, no fever; symptoms started 1.5 weeks ago; using Nyquil/Aleve URI symptoms X 1 1/2 weeks. + head congestion. -- yellow. + sore throat. Feels like ears are plugged up. Eyes hurt. No facial pain. + cough. Occ productive. + wheezing. NO fevers. + chills. Has been alternating between constipation/diarrhea. + body aches. Nyquil and aleve. PAST MEDICAL HISTORY: PAST MEDICAL HISTORY Diagnosis Date Abdominal pain, unspecified site Adrenal nodule (HCC) unchanged after >2 years Anxiety state, unspecified Asthma childhood CAD (coronary artery disease) Chronic low back pain Diaphragmatic hernia without mention of obstruction or gangrene Diaphragmatic hernia without mention of obstruction or gangrene Diverticulosis of colon (without mention of hemorrhage) Esophageal reflux Essential hypertension, benign 03/20/2012 Fibromyalgia Hemorrhoids Hypogonadism male treated per urology Impotence of organic origin Lung nodule repeat ct in 01/02 Palpitations Personal history of colonic polyps 2004 polyps Pulmonary embolism (HCC) completed treatment per pulm Recurrent pneumonia 14 times PAST SURGICAL HISTORY Procedure Laterality Date ADENOIDECTOMY PRIMARY Adenoidectomy COLONOSCOPY N/A 07/20/2016 MAC COLONOSCOPY 01/24/2019 adenomatous colon polyps, repeat in 3 years COLONOSCOPY FLX DX W/COLLJ SPEC WHEN PFRMD 2004 Colonoscopy COLONOSCOPY FLX DX W/COLLJ SPEC WHEN PFRMD 03/07/11 wnl EGD N/A 07/20/2016 MAC EGD 01/24/2019 gastritis and gastric polyps ESOPHAGOGASTRODUODENOSCOPY TRANSORAL DIAGNOSTIC 05/24/2011 EGD HEMORRHOIDECTOMY XTRNL 2/> COLUMN/GROUP 04/30/15 KNEE SURGERY HX Right 1987 LAPS SURG CHOLECYSTECTOMY W/CHOLANGIOGRAPHY 2004 [facility] - Dr. Hernandes OPEN REPAIR OF ROTATOR CUFF ACUTE Rotator cuff repair PERCUTANEOUS CORONARY INTERVENTION 2006 stent to LAD TONSILLECTOMY PRIMARY/SECONDARY Tonsillectomy ALLERGIES Sulfa (Sulfonamide Antibiotics) MEDICATIONS Current Outpatient Medications Medication Sig potassium chloride (K-TAB) 10 mEq tablet Take 2 tablets by mouth once daily. apixaban (ELIQUIS) 5 mg tab(s) Take 1 tablet by mouth twice daily. atorvastatin (LIPITOR) 20 mg tablet Take 1 tablet by mouth daily at bedtime. For cholesterol. allopurinol (ZYLOPRIM) 300 mg tablet Take 1 tablet by mouth once daily. For gout. amLODIPine (NORVASC) 5 mg tablet Take 1 tablet by mouth once daily. testosterone (ANDROGEL PUMP) 20.25 mg/1.25 gram (1.62 %) transdermal gel APPLY 4 PUMPS TOPICALLY DAILY. losartan (COZAAR) 25 mg tablet Take 1 tablet by mouth once daily. esomeprazole (NEXIUM) 40 mg capsule Take 1 capsule by mouth twice daily before meals. albuterol HFA (PROAIR HFA) 90 mcg/actuation inhaler Inhale 2 Puffs as instructed every 4 hours as needed (FOR COUGH OR WHEEZE). CPAP Requires replacement machine at same settings. Cholecalciferol, Vitamin D3, (VITAMIN D) 1,000 unit cap Take 1 capsule by mouth once daily. cyanocobalamin (VITAMIN B-12) 1,000 mcg tab Take 1,000 mcg by mouth once daily. MULTIVITAMIN TAB Take one(1) tablet daily BY MOUTH. sertraline (ZOLOFT) 50 mg tablet Take 1 tablet by mouth once daily. (Patient not taking: Reported on 03/13/2023) oxyCODONE-acetaminophen 5-325 mg (PERCOCET) No current facility-administered medications for this visit. FAMILY HISTORY Problem Relation Age of Onset Hypertension Mother Heart Mother Stroke Mother Allergies Mother Breast Cancer Mother Heart Father of [place] Allergies Father Asthma Daughter Allergies Sister Allergies Brother Allergies Daughter Social History Tobacco Use Smoking status: Former Packs/day: 2.00 Years: 5.00 Additional pack years: 0.00 Total pack years: 10.00 Types: Cigarettes Quit date: 02/08/1987 Years since quittin.3 Smokeless tobacco: Former Types: Chew Quit date: 12/03/2017 Tobacco comments: patient smoked for a few months in 2006 Quit chew June 2022 Vaping Use Vaping Use: Never used Substance Use Topics Alcohol use: Not Currently Drug use: Not Currently Comment: marijuana in past not since 20 y/o EXAM: BP 162/82 Pulse 74 Resp 16 SpO2 97% PHYSICAL EXAM: General Appearance: Well appearing, alert, in no acute distress, well-hydrated, well nourished.. Skin: Skin color, texture, turgor normal, no suspicious rashes or lesions. Head (more content not included)... [facility] 06-08-2023 Miscellaneous Notes Formatting of this note is different fro m the original. Patient has been identified by name and date of : Yes, Patient phones for refill(s): Requested Prescriptions Pending Prescriptions Disp Refills potassium chloride (K-TAB) 10 mEq tablet 180 tablet 1 Sig: Take 2 tablets by mouth once daily. Date of last office visit in primary care: 01/23/2023 Date of next office visit in primary care: 07/26/2023 Please advise. Thank you. Beverley Cruz LPN. documented in this encounter [facility] 04-03-2023 Note HNO ID: [id number] Author: Shannon Vázquez RT(R) Service: Radiology Author Type: Technologist Type: Progress Notes Filed: 04/03/2023 11:14 AM Note Text: Radiology Service Progress Note PATIENT NAME: Lazaro Chapa DATE OF SERVICE: April 03, 2023 TIME: 10:58 AM PATIENT IDENTITY VERIFICATION COMPLETED USING TWO (2) IDENTIFIERS: Name and Date of confirmed by patient verbally. FALL SCREENING: Has the patient had 2 falls in the last year or 1 fall with injury or currently using an Ambulatory Assistive Device (Walker, Cane, Wheelchair, Crutches, etc.)? Yes, Patient High Risk for Falls What interventions were put in place to prevent falls during this visit? Instructed Patient to Call for Help if Needed, Offered Assistance with Transfers/Clothing, and Increased Observations by Caregivers PATIENT GENDER DATA: Male PATIENT RELEVANT IMPLANT DATA REVIEWED: Yes RADIOLOGY DEPARTMENT: General X-ray: Exam(s) Completed: Lower Extremity X-Ray(s): Foot, Left PERIPHERAL IV DATA: Not applicable SIGNED BY: RT Dez(R) April 03, 2023 10:58 AM [facility] 04-03-2023 Note HNO ID: [id number] Author: Danielle Randle APRN.HEARING THERAPIST Service: ? Author Type: Nurse Practitioner Type: Progress Notes Filed: 04/03/2023 6:52 PM Note Text: This note was created using [employer]. Subjective Lazaro Chapa is a 67 year old male. 67 year old male with PMH HTN, CAD, hyperlipidemia, asthma, GERD, polyarthritis presents for complaints of left foot pain Acute onset Monday Left foot and heel Endorses he felt hot and tingling sensation In left posterior ankle and heel while doing leg presses, Citing approximately 320 lbs. States next day he noticed a lump in back of foot. Denies ecchymosis. Denies prior history of fracture or injury. Pain worsened with movement and activity The history is provided by the patient. No supervisor modern languages was used. Pain (foot) Pain location: posterior ankle and foot. This is a new problem. Episode onset: 03/31/23. There has been a history of trauma. The problem occurs constantly. The problem has been unchanged. The quality of the pain is described as aching. The pain is at a severity of 9/10. The pain is moderate. Pertinent negatives include no fever, inability to bear weight, itching, joint locking, joint swelling, limited range of motion, numbness, stiffness or tingling. The symptoms are aggravated by activity and standing. He has tried rest for the symptoms. The treatment provided no relief. Family history does not include gout or rheumatoid arthritis. There is no history of diabetes, gout, osteoarthritis or rheumatoid arthritis. PAST MEDICAL HISTORY Diagnosis Date Abdominal pain, unspecified site Adrenal nodule (HCC) unchanged after >2 years Anxiety state, unspecified Asthma childhood CAD (coronary artery disease) Chronic low back pain Diaphragmatic hernia without mention of obstruction or gangrene Diaphragmatic hernia without mention of obstruction or gangrene Diverticulosis of colon (without mention of hemorrhage) Esophageal reflux Essential hypertension, benign 03/20/2012 Fibromyalgia Hemorrhoids Hypogonadism male treated per urology Impotence of organic origin Lung nodule repeat ct in 01/02 Palpitations Personal history of colonic polyps 2004 polyps Pulmonary embolism (HCC) completed treatment per pulm Recurrent pneumonia 14 times PAST SURGICAL HISTORY Procedure Laterality Date ADENOIDECTOMY PRIMARY Adenoidectomy COLONOSCOPY N/A 07/20/2016 MAC COLONOSCOPY 01/24/2019 adenomatous colon polyps, repeat in 3 years COLONOSCOPY FLX DX W/COLLJ SPEC WHEN PFRMD 2004 Colonoscopy COLONOSCOPY FLX DX W/COLLJ SPEC WHEN PFRMD 03/07/11 wnl EGD N/A 07/20/2016 MAC EGD 01/24/2019 gastritis and gastric polyps ESOPHAGOGASTRODUODENOSCOPY TRANSORAL DIAGNOSTIC 05/24/2011 EGD HEMORRHOIDECTOMY XTRNL 2/> COLUMN/GROUP 04/30/15 KNEE SURGERY HX Right 1987 LAPS SURG CHOLECYSTECTOMY W/CHOLANGIOGRAPHY 2004 [facility] - Dr. Hernandes OPEN REPAIR OF ROTATOR CUFF ACUTE Rotator cuff repair PERCUTANEOUS CORONARY INTERVENTION 2006 stent to LAD TONSILLECTOMY PRIMARY/SECONDARY Tonsillectomy ALLERGIES Sulfa (Sulfonamide Antibiotics) MEDICATIONS apixaban (ELIQUIS) 5 mg tab(s) Take 1 tablet by mouth twice daily. atorvastatin (LIPITOR) 20 mg tablet Take 1 tablet by mouth daily at bedtime. For cholesterol. allopurinol (ZYLOPRIM) 300 mg tablet Take 1 tablet by mouth once daily. For gout. amLODIPine (NORVASC) 5 mg tablet Take 1 tablet by mouth once daily. potassium chloride (K-TAB) 10 mEq tablet Take 2 tablets by mouth once daily. testosterone (ANDROGEL PUMP) 20.25 mg/1.25 gram (1.62 %) transdermal gel APPLY 4 PUMPS TOPICALLY DAILY. oxyCODONE-acetaminophen 5-325 mg (PERCOCET) losartan (COZAAR) 25 mg tablet Take 1 tablet by mouth once daily. esomeprazole (NEXIUM) 40 mg capsule Take 1 capsule by mouth twice daily before meals. albuterol HFA (PROAIR HFA) 90 mcg/actuation inhaler Inhale 2 Puffs as instructed every 4 hours as needed (FOR COUGH OR WHEEZE). CPAP Requires replacement machine at same settings. Cholecalciferol, Vitamin D3, (VITAMIN D) 1,000 unit cap Take 1 capsule by mouth once daily. cyanocobalamin (VITAMIN B-12) 1,000 mcg tab Take 1,000 mcg by mouth once daily. MULTIVITAMIN TAB Take one(1) tablet daily BY MOUTH. sertraline (ZOLOFT) 50 mg tablet Take 1 tablet by mouth once daily. (Patient not taking: Reported on 03/13/2023) FAMILY HISTORY Problem Relation Age of Onset Hypertension Mother Heart Mother Stroke Mother Allergies Mother Breast Cancer Mother Heart Father of [place] Allergies Father Asthma Daughter Allergies Sister Allergies Brother Allergies Daughter Social History Tobacco Use Smoking status: Former Packs/day: 2.00 Years: 5.00 Additional pack years: 0.00 Total pack years: 10.00 Types: Cigarettes Quit date: 02/08/1987 Years since quittin.1 Smokeless tobacco: Former Types: Chew Quit date: 12/03/2017 Tobacco comments: (more content not included)... [facility] 03-13-2023 Note HNO ID: [id number] Author: Danielle Randle APRN.HEARING THERAPIST Service: ? Author Type: Nurse Practitioner Type: Progress Notes Filed: 03/13/2023 11:45 AM Note Text: This note was created using [employer]. Subjective Lazaro Chapa is a 67 year old male. With PMH HTN, aflutter (Eliquis), CAD (stent placement) presents for illness. Acute onset of symptoms was 2 weeks ago +sinus pressure + ear pain + cough + congestion +sore throat Has used OTC medicines without much relief. Denies tobacco usage. Endorses he seemed to improve last week, but then this morning came back with a vengeance The history is provided by the patient. No supervisor modern languages was used. Sinus Problem This is a new problem. The current episode started 1 to 4 weeks ago. The problem occurs constantly. The problem has been waxing and waning. Associated symptoms include congestion, coughing and headaches. Pertinent negatives include no abdominal pain, anorexia, arthralgias, change in bowel habit, chest pain, chills, diaphoresis, fatigue, fever, joint swelling, myalgias, nausea, neck pain, numbness, rash, sore throat, swollen glands, urinary symptoms, vertigo, visual change, vomiting or weakness. Nothing aggravates the symptoms. Treatments tried: OTC medicines. The treatment provided mild relief. PAST MEDICAL HISTORY Diagnosis Date Abdominal pain, unspecified site Adrenal nodule (HCC) unchanged after >2 years Anxiety state, unspecified Asthma childhood CAD (coronary artery disease) Chronic low back pain Diaphragmatic hernia without mention of obstruction or gangrene Diaphragmatic hernia without mention of obstruction or gangrene Diverticulosis of colon (without mention of hemorrhage) Esophageal reflux Essential hypertension, benign 03/20/2012 Fibromyalgia Hemorrhoids Hypogonadism male treated per urology Impotence of organic origin Lung nodule repeat ct in 01/02 Palpitations Personal history of colonic polyps 2004 polyps Pulmonary embolism (HCC) completed treatment per pulm Recurrent pneumonia 14 times PAST SURGICAL HISTORY Procedure Laterality Date ADENOIDECTOMY PRIMARY Adenoidectomy COLONOSCOPY N/A 07/20/2016 MAC COLONOSCOPY 01/24/2019 adenomatous colon polyps, repeat in 3 years COLONOSCOPY FLX DX W/COLLJ SPEC WHEN PFRMD 2004 Colonoscopy COLONOSCOPY FLX DX W/COLLJ SPEC WHEN PFRMD 03/07/11 wnl EGD N/A 07/20/2016 MAC EGD 01/24/2019 gastritis and gastric polyps ESOPHAGOGASTRODUODENOSCOPY TRANSORAL DIAGNOSTIC 05/24/2011 EGD HEMORRHOIDECTOMY XTRNL 2/> COLUMN/GROUP 04/30/15 KNEE SURGERY HX Right 1987 LAPS SURG CHOLECYSTECTOMY W/CHOLANGIOGRAPHY 2004 [facility] - Dr. Hernandes OPEN REPAIR OF ROTATOR CUFF ACUTE Rotator cuff repair PERCUTANEOUS CORONARY INTERVENTION 2006 stent to LAD TONSILLECTOMY PRIMARY/SECONDARY Tonsillectomy ALLERGIES Sulfa (Sulfonamide Antibiotics) MEDICATIONS apixaban (ELIQUIS) 5 mg tab(s) Take 1 tablet by mouth twice daily. atorvastatin (LIPITOR) 20 mg tablet Take 1 tablet by mouth daily at bedtime. For cholesterol. allopurinol (ZYLOPRIM) 300 mg tablet Take 1 tablet by mouth once daily. For gout. amLODIPine (NORVASC) 5 mg tablet Take 1 tablet by mouth once daily. potassium chloride (K-TAB) 10 mEq tablet Take 2 tablets by mouth once daily. testosterone (ANDROGEL PUMP) 20.25 mg/1.25 gram (1.62 %) transdermal gel APPLY 4 PUMPS TOPICALLY DAILY. oxyCODONE-acetaminophen 5-325 mg (PERCOCET) losartan (COZAAR) 25 mg tablet Take 1 tablet by mouth once daily. esomeprazole (NEXIUM) 40 mg capsule Take 1 capsule by mouth twice daily before meals. albuterol HFA (PROAIR HFA) 90 mcg/actuation inhaler Inhale 2 Puffs as instructed every 4 hours as needed (FOR COUGH OR WHEEZE). CPAP Requires replacement machine at same settings. Cholecalciferol, Vitamin D3, (VITAMIN D) 1,000 unit cap Take 1 capsule by mouth once daily. cyanocobalamin (VITAMIN B-12) 1,000 mcg tab Take 1,000 mcg by mouth once daily. MULTIVITAMIN TAB Take one(1) tablet daily BY MOUTH. amoxicillin-clavulanic acid (AUGMENTIN) 875-125 mg per tablet Take 1 tablet by mouth twice daily for 7 days. methylPREDNISolone (MEDROL, RAQUEL,) 4 mg Dose-Pack Follow dosing instructions, take with food. sertraline (ZOLOFT) 50 mg tablet Take 1 tablet by mouth once daily. (Patient not taking: Reported on 03/13/2023) FAMILY HISTORY Problem Relation Age of Onset Hypertension Mother Heart Mother Stroke Mother Allergies Mother Breast Cancer Mother Heart Father of [place] Allergies Father Asthma Daughter Allergies Sister Allergies Brother Allergies Daughter Social History Tobacco Use Smoking status: Former Packs/day: 2.00 Years: 5.00 Additional pack years: 0.00 Total pack years: 10.00 Types: Cigarettes Quit date: 02/08/1987 Years since quittin.1 Smokeless tobacco: Former Types: Chew Quit date: 12/03/2017 Tobacco comments: patient smoked for (more content not included)... [facility] 01-23-2023 Note HNO ID: [id number] Author: Chloe Myers MD Service: ? Author Type: Physician Type: Progress Notes Filed: 01/23/2023 5:24 PM Note Text: Patient presents with: Follow Up HPI: Patient presents today for office visit for follow up. Doing well today. Abx completed. No fever or chills. Still fatigued. Doesn't feel like his energy is back. Appetite is good. No nausea or vomiting No burning or frequency. No back pain Is a patient of Dr Ramos. Sees him periodically. Having trouble with his asthma a bit. Has had some coughing Has been bothered this summer by the weather and air control. Is a little fatigued. Now taking bid of potassium again. was low at one point. Emotionally doing ok. Taking just one of the zoloft. Has talked with someone he know who is a counselor but not professionally. Feels overall ok. Is on eliquis per cardiology. He was only taking it once a day. Had discussion regarding compliance. MEDICATIONS: Current Outpatient Medications Medication Sig atorvastatin (LIPITOR) 20 mg tablet Take 1 tablet by mouth daily at bedtime. For cholesterol. allopurinol (ZYLOPRIM) 300 mg tablet Take 1 tablet by mouth once daily. For gout. amLODIPine (NORVASC) 5 mg tablet Take 1 tablet by mouth once daily. potassium chloride (K-TAB) 10 mEq tablet Take 2 tablets by mouth once daily. testosterone (ANDROGEL PUMP) 20.25 mg/1.25 gram (1.62 %) transdermal gel APPLY 4 PUMPS TOPICALLY DAILY. oxyCODONE-acetaminophen 5-325 mg (PERCOCET) sertraline (ZOLOFT) 50 mg tablet Take 1.5 tablets by mouth once daily. losartan (COZAAR) 25 mg tablet Take 1 tablet by mouth once daily. esomeprazole (NEXIUM) 40 mg capsule Take 1 capsule by mouth twice daily before meals. albuterol HFA (PROAIR HFA) 90 mcg/actuation inhaler Inhale 2 Puffs as instructed every 4 hours as needed (FOR COUGH OR WHEEZE). CPAP Requires replacement machine at same settings. Cholecalciferol, Vitamin D3, (VITAMIN D) 1,000 unit cap Take 1 capsule by mouth once daily. cyanocobalamin (VITAMIN B-12) 1,000 mcg tab Take 1,000 mcg by mouth once daily. MULTIVITAMIN TAB Take one(1) tablet daily BY MOUTH. No current facility-administered medications for this visit. ALLERGIES: ALLERGIES Allergen Reactions Sulfa (Sulfonamide * Rash PAST MEDICAL HISTORY Diagnosis Date Abdominal pain, unspecified site Adrenal nodule (HCC) unchanged after >2 years Anxiety state, unspecified Asthma childhood CAD (coronary artery disease) Chronic low back pain Diaphragmatic hernia without mention of obstruction or gangrene Diaphragmatic hernia without mention of obstruction or gangrene Diverticulosis of colon (without mention of hemorrhage) Esophageal reflux Essential hypertension, benign 03/20/2012 Fibromyalgia Hemorrhoids Hypogonadism male treated per urology Impotence of organic origin Lung nodule repeat ct in 01/02 Palpitations Personal history of colonic polyps 2005 polyps Pulmonary embolism (HCC) completed treatment per pulm Recurrent pneumonia 14 times PAST SURGICAL HISTORY Procedure Laterality Date ADENOIDECTOMY PRIMARY Adenoidectomy COLONOSCOPY N/A 07/20/2016 MAC COLONOSCOPY 01/24/2019 adenomatous colon polyps, repeat in 3 years COLONOSCOPY FLX DX W/COLLJ SPEC WHEN PFRMD 2004 Colonoscopy COLONOSCOPY FLX DX W/COLLJ SPEC WHEN PFRMD 03/07/11 wnl EGD N/A 07/20/2016 MAC EGD 01/24/2019 gastritis and gastric polyps ESOPHAGOGASTRODUODENOSCOPY TRANSORAL DIAGNOSTIC 05/24/2011 EGD HEMORRHOIDECTOMY XTRNL 2/> COLUMN/GROUP 04/30/15 KNEE SURGERY HX Right 1988 LAPS SURG CHOLECYSTECTOMY W/CHOLANGIOGRAPHY 2004 [facility] - Dr. Hernandes OPEN REPAIR OF ROTATOR CUFF ACUTE Rotator cuff repair PERCUTANEOUS CORONARY INTERVENTION 2007 stent to LAD TONSILLECTOMY PRIMARY/SECONDARY Tonsillectomy FAMILY HISTORY Problem Relation Age of Onset Hypertension Mother Heart Mother Stroke Mother Allergies Mother Breast Cancer Mother Heart Father of [place] Allergies Father Asthma Daughter Allergies Sister Allergies Brother Allergies Daughter Social History Tobacco Use Smoking status: Former Packs/day: 2.00 Years: 5.00 Total pack years: 10.00 Types: Cigarettes Quit date: 02/08/1987 Years since quittin.9 Smokeless tobacco: Former Types: Chew Quit date: 12/03/2017 Tobacco comments: patient smoked for a few months in 2006 Quit chew June 2022 Vaping Use Vaping Use: Never used Substance Use Topics Alcohol use: Not Currently Drug use: Not Currently Comment: marijuana in past not since 20 y/o Reviewed current medications, allergies, past medical history, surgical history, family history and social history today. REVIEW OF SYSTEMS No chest pain or edema. All other reviewed and negative other than HPI. VITALS: BP 138/70 Pulse 64 Ht 195.6 cm (6' 5 ) Wt (!) 149 kg (328 lb 6.4 oz) SpO2 97% BMI 38.94 kg/m? Last 4 Encounter Wt R (more content not included)... [facility] 01-23-2023 History of Present illness Narrative Formatting of this note is different fro m the original. Patient presents with: Follow Up HPI: Patient presents today for office visit for follow up. Doing well today. Abx completed. No fever or chills. Still fatigued. Doesn't feel like his energy is back. Appetite is good. No nausea or vomiting No burning or frequency. No back pain Is a patient of Dr Ramos. Sees him periodically. Having trouble with his asthma a bit. Has had some coughing Has been bothered this summer by the weather and air control. Is a little fatigued. Now taking bid of potassium again. was low at one point. Emotionally doing ok. Taking just one of the zoloft. Has talked with someone he know who is a counselor but not professionally. Feels overall ok. Is on eliquis per cardiology. He was only taking it once a day. Had discussion regarding compliance. MEDICATIONS: Current Outpatient Medications Medication Sig atorvastatin (LIPITOR) 20 mg tablet Take 1 tablet by mouth daily at bedtime. For cholesterol. allopurinol (ZYLOPRIM) 300 mg tablet Take 1 tablet by mouth once daily. For gout. amLODIPine (NORVASC) 5 mg tablet Take 1 tablet by mouth once daily. potassium chloride (K-TAB) 10 mEq tablet Take 2 tablets by mouth once daily. testosterone (ANDROGEL PUMP) 20.25 mg/1.25 gram (1.62 %) transdermal gel APPLY 4 PUMPS TOPICALLY DAILY. oxyCODONE-acetaminophen 5-325 mg (PERCOCET) sertraline (ZOLOFT) 50 mg tablet Take 1.5 tablets by mouth once daily. losartan (COZAAR) 25 mg tablet Take 1 tablet by mouth once daily. esomeprazole (NEXIUM) 40 mg capsule Take 1 capsule by mouth twice daily before meals. albuterol HFA (PROAIR HFA) 90 mcg/actuation inhaler Inhale 2 Puffs as instructed every 4 hours as needed (FOR COUGH OR WHEEZE). CPAP Requires replacement machine at same settings. Cholecalciferol, Vitamin D3, (VITAMIN D) 1,000 unit cap Take 1 capsule by mouth once daily. cyanocobalamin (VITAMIN B-12) 1,000 mcg tab Take 1,000 mcg by mouth once daily. MULTIVITAMIN TAB Take one(1) tablet daily BY MOUTH. No current facility-administered medications for this visit. ALLERGIES: ALLERGIES Allergen Reactions Sulfa (Sulfonamide * Rash PAST MEDICAL HISTORY Diagnosis Date Abdominal pain, unspecified site Adrenal nodule (HCC) unchanged after >2 years Anxiety state, unspecified Asthma childhood CAD (coronary artery disease) Chronic low back pain Diaphragmatic hernia without mention of obstruction or gangrene Diaphragmatic hernia without mention of obstruction or gangrene Diverticulosis of colon (without mention of hemorrhage) Esophageal reflux Essential hypertension, benign 03/20/2012 Fibromyalgia Hemorrhoids Hypogonadism male treated per urology Impotence of organic origin Lung nodule repeat ct in 01/02 Palpitations Personal history of colonic polyps 2004 polyps Pulmonary embolism (HCC) completed treatment per pulm Recurrent pneumonia 14 times PAST SURGICAL HISTORY Procedure Laterality Date ADENOIDECTOMY PRIMARY <AGE 14 Adenoidectomy COLONOSCOPY N/A 07/20/2016 MAC COLONOSCOPY 01/24/2019 adenomatous colon polyps, repeat in 3 years COLONOSCOPY FLX DX W/COLLJ SPEC WHEN PFRMD 2004 Colonoscopy COLONOSCOPY FLX DX W/COLLJ SPEC WHEN PFRMD 03/07/11 wnl EGD N/A 07/20/2016 MAC EGD 01/24/2019 gastritis and gastric polyps ESOPHAGOGASTRODUODENOSCOPY TRANSORAL DIAGNOSTIC 05/24/2011 EGD HEMORRHOIDECTOMY XTRNL 2/> COLUMN/GROUP 04/30/15 KNEE SURGERY HX Right 1988 LAPS SURG CHOLECYSTECTOMY W/CHOLANGIOGRAPHY 2004 [facility] - Dr. Hernandes OPEN REPAIR OF ROTATOR CUFF ACUTE Rotator cuff repair PERCUTANEOUS CORONARY INTERVENTION 2006 stent to LAD TONSILLECTOMY PRIMARY/SECONDARY <AGE 14 Tonsillectomy FAMILY HISTORY Problem Relation Age of Onset Hypertension Mother Heart Mother Stroke Mother Allergies Mother Breast Cancer Mother Heart Father of [place] Allergies Father Asthma Daughter Allergies Sister Allergies Brother Allergies Daughter Social History Tobacco Use Smoking status: Former Packs/day: 2.00 Years: 5.00 Total pack years: 10.00 Types: Cigarettes Quit date: 02/08/1987 Years since quittin.9 Smokeless tobacco: Former Types: Chew Quit date: 12/03/2017 Tobacco comments: patient smoked for a few months in 2006 Quit chew June 2022 Vaping Use Vaping Use: Never used Substance Use Topics Alcohol use: Not Currently Drug use: Not Currently Comment: marijuana in past not since 20 y/o Reviewed current medications, allergies, past medical history, surgical history, family history and social history today. REVIEW OF SYSTEMS No chest pain or edema. All other reviewed and negative other than HPI. VITALS: BP 138/70 Pulse 64 Ht 195.6 cm (6' 5 ) Wt (!) 149 kg (328 lb 6.4 oz) SpO2 97% BMI 38.94 kg/m Last 4 Encounter Wt Readings: Date: Wt: 12/19/2022 149.4 kg (329 lb 6.4 oz) 12/15/2022 146.5 kg (323 lb) 12/14/2022 145.7 kg (321 lb 3.2 oz) 12/01/2022 143.8 kg (317 lb) PHYSICAL EXAMINATION: General appearance: Well appearing, alert, in no acute distress, well-hydrated, well nourished. Skin: Skin color, texture, turgor normal, no suspicious rashes or lesions Head: Normocephalic, no masses, lesions, tenderness or abnormalities Lungs: Lungs clear to auscultation. No wheezing, rhonchi, rales Heart: RRR without murmur, gallop, or rubs. No ectopy Abdomen: Normal abdominal exam, Abdomen soft, non-tender. Bowel sounds normal. No masses, organomegaly Extremities: No deformities, edema, skin discoloration, clubbing or cyanosis. Good capillary refill. Musculoskeletal: No joint swelling, deformity, or tenderness Peripheral pulses: Normal Neuro: Negative. ASSESSMENT/PLAN: 1. Essential hypertension, benign - ICD9: 401.1, ICD10: I10 (primary diagnosis) - Controlled - Continue current medications - BASIC METABOLIC PNL 2. Recurrent UTI (urinary tract infection) - ICD9: 599.0, ICD10: N39.0 - recheck - ALBUMIN/CREAT RATIO RND UR - URINALYSIS, WITH MICROSCOPIC 3. Adjustment disorder with anxious mood - ICD9: 309.24, ICD10: F43.22 - continue meds. - SERTRALINE 50 MG TABLET 4. Fatigue, unspecified type - ICD9: 780.79, ICD10: R53.83 - ? Stress related. - TSH BLD 5. Atrial flutter, unspecified type (HCC) - ICD9: 427.32, ICD10: I48.92 - encouraged med compliance. - APIXABAN 5 MG TABLET 6. Coronary artery disease involving chinik coronary artery of chinik heart without angina pectoris - ICD9: 414.01, ICD10: I25.10 - stable. Chloe Myers MD documented in this encounter [facility] 01-10-2023 Note HNO ID: [id number] Author: Vee Weinberg LPCC Service: ? Author Type: Therapist Type: Progress Notes Filed: 01/10/2023 8:47 AM Note Text: Behavioral Health Social Work Progress Note Patient identified for [facility] from: PCP Reason for referral: [facility] Behavioral Health Resources: Psychology - talk therapy [facility] encounter type: Telephone Encounter Attempts to Outreach: 3 attempts Referral made: Psychology - Internal, Psychology - External Psychology-Internal referral type: Therapy Psychology-External referral type: Therapy Reason for external referral: Patient choice, Wait times at [facility] too long Final Disposition: Resources given Patient Discharged?: Yes Patient reported that caregiver was able to meet their needs today?: N/A therapist sent patient [employer] follow up message offering assistance with linkage to behavioral health services. AARON Zuñiga-S January 10, 2023 [facility] 01-03-2023 Miscellaneous Notes Formatting of this note might be differe nt from the original. Behavioral Health Social Work Progress Note Patient identified for [facility] from: PCP Reason for referral: [facility] Behavioral Health Resources: Psychology - talk therapy [facility] encounter type: Telephone Encounter Attempts to Outreach: 1 attempt Referral made: Psychology - Internal, Psychology - External Psychology-Internal referral type: Therapy Psychology-External referral type: Therapy Patient Discharged?: No Phone call placed today that went to [employer] [facility] Left my contact information and brief nature of call. Initial outreach also completed via [employer] sending list of in network providers with insurance. CARMELITA Zuñiga January 03, 2023 documented in this encounter [facility] 12-22-2022 Miscellaneous Notes Formatting of this note is different fro m the original. Patient has been identified by name and date of : Yes Patient phones for refill(s): Requested Prescriptions Pending Prescriptions Disp Refills atorvastatin (LIPITOR) 20 mg tablet 90 tablet 3 Sig: Take 1 tablet by mouth daily at bedtime. For cholesterol. allopurinol (ZYLOPRIM) 300 mg tablet 90 tablet 1 Sig: Take 1 tablet by mouth once daily. For gout. amLODIPine (NORVASC) 5 mg tablet 7 tablet 0 Sig: Take 1 tablet by mouth once daily. potassium chloride (K-TAB) 10 mEq tablet 180 tablet 1 Sig: Take 2 tablets by mouth once daily. Date of last office visit in primary care: 12/19/2022 Next appointment scheduled 01/23/2023 Pharmacy change. Please advise. Thank you. Beverley Cruz LPN documented in this encounter [facility] 12-19-2022 Note HNO ID: [id number] Author: Chloe Myers MD Service: ? Author Type: Physician Type: Progress Notes Filed: 12/19/2022 4:12 PM Note Text: Patient presents with: Hospital F/U HPI: Patient presents today for office visit for hospital follow up. Would serve as a TCM since today would be the first day to contact for a transitional care visit. Seen in office on 12/14/22. Presented with being cold and clammy and diaphoretic and was having issues producing urine. Advised to go to emergency room for evaluation. Dx with UTI and Hypokalemia Started on oral Nitrofurantoin and Potassium and discharged. Ct of abd showed. Stable adrenal nodule. Had right renal cyst and liver cyst which are old. Er notes showed mild hypokalemia and leukocytosis. Went back [facility] on 12/15/22 with a 104 temp. Admitted. Started on IV abx. Discharged on 12/16/22. Which was the last working day in the office. Nitrofurantoin d/c and Cipro oral given at discharge. Still on abx. We do not have full hospital records. His potassium was increased bid. Feeling much . No fever or chills. Still very fatigued. No burning or frequency. They apparently did do a repeat chest xray that was negative. Appetite is improving. No vomiting. Mild nausea. No new back pain. No shortness of breath. Has had some cough. MEDICATIONS: Current Outpatient Medications Medication Sig ciprofloxacin HCl (CIPRO) 500 mg tablet testosterone (ANDROGEL PUMP) 20.25 mg/1.25 gram (1.62 %) transdermal gel APPLY 4 PUMPS TOPICALLY DAILY. sertraline (ZOLOFT) 50 mg tablet Take 1.5 tablets by mouth once daily. losartan (COZAAR) 25 mg tablet Take 1 tablet by mouth once daily. atorvastatin (LIPITOR) 20 mg tablet Take 1 tablet by mouth daily at bedtime. For cholesterol. allopurinol (ZYLOPRIM) 300 mg tablet Take 1 tablet by mouth once daily. For gout. esomeprazole (NEXIUM) 40 mg capsule Take 1 capsule by mouth twice daily before meals. amLODIPine (NORVASC) 5 mg tablet Take 1 tablet by mouth once daily. potassium chloride (K-TAB) 10 mEq tablet Take 2 tablets by mouth once daily. (Patient taking differently: Take 20 mEq by mouth once daily. 40 mEq daily for seven days) albuterol HFA (PROAIR HFA) 90 mcg/actuation inhaler Inhale 2 Puffs as instructed every 4 hours as needed (FOR COUGH OR WHEEZE). CPAP Requires replacement machine at same settings. Cholecalciferol, Vitamin D3, (VITAMIN D) 1,000 unit cap Take 1 capsule by mouth once daily. cyanocobalamin (VITAMIN B-12) 1,000 mcg tab Take 1,000 mcg by mouth once daily. MULTIVITAMIN TAB Take one(1) tablet daily BY MOUTH. nitrofurantoin monohydrate and macrocrystal (MACROBID) 100 mg capsule Take 100 mg by mouth twice daily. For seven days for UTI (Patient not taking: Reported on 12/19/2022) oxyCODONE-acetaminophen 5-325 mg (PERCOCET) (Patient not taking: No sig reported) No current facility-administered medications for this visit. ALLERGIES: ALLERGIES Allergen Reactions Sulfa (Sulfonamide * Rash PAST MEDICAL HISTORY Diagnosis Date Abdominal pain, unspecified site Adrenal nodule (HCC) unchanged after >2 years Anxiety state, unspecified Asthma childhood CAD (coronary artery disease) Chronic low back pain Diaphragmatic hernia without mention of obstruction or gangrene Diaphragmatic hernia without mention of obstruction or gangrene Diverticulosis of colon (without mention of hemorrhage) Esophageal reflux Essential hypertension, benign 03/20/2012 Fibromyalgia Hemorrhoids Hypogonadism male treated per urology Impotence of organic origin Lung nodule repeat ct in 01/02 Palpitations Personal history of colonic polyps 2004 polyps Pulmonary embolism (HCC) completed treatment per pulm Recurrent pneumonia 14 times PAST SURGICAL HISTORY Procedure Laterality Date ADENOIDECTOMY PRIMARY Adenoidectomy COLONOSCOPY N/A 07/20/2016 MAC COLONOSCOPY 01/24/2019 adenomatous colon polyps, repeat in 3 years COLONOSCOPY FLX DX W/COLLJ SPEC WHEN PFRMD 2004 Colonoscopy COLONOSCOPY FLX DX W/COLLJ SPEC WHEN PFRMD 03/07/11 wnl EGD N/A 07/20/2016 MAC EGD 01/24/2019 gastritis and gastric polyps ESOPHAGOGASTRODUODENOSCOPY TRANSORAL DIAGNOSTIC 05/24/2011 EGD HEMORRHOIDECTOMY XTRNL 2/> COLUMN/GROUP 04/30/15 KNEE SURGERY HX Right 1987 LAPS SURG CHOLECYSTECTOMY W/CHOLANGIOGRAPHY 2004 [facility] - Dr. Hernandes OPEN REPAIR OF ROTATOR CUFF ACUTE Rotator cuff repair PERCUTANEOUS CORONARY INTERVENTION 2006 stent to LAD TONSILLECTOMY PRIMARY/SECONDARY Tonsillectomy FAMILY HISTORY Problem Relation Age of Onset Hypertension Mother Heart Mother Stroke Mother Allergies Mother Breast Cancer Mother Heart Father of [place] Allergies Father Asthma Daughter Allergies Sister Allergies Brother Allergies Daughter Social History Tobacco Use Smoking status: Former Packs/day: 2.00 Years: 5.00 Pack years: 10.00 Types: Cigarettes Quit date: 02/08/ (more content not included)... [facility] 12-19-2022 History of Present illness Narrative Formatting of this note is different fro m the original. Patient presents with: Hospital F/U HPI: Patient presents today for office visit for hospital follow up. Would serve as a TCM since today would be the first day to contact for a transitional care visit. Seen in office on 12/14/22. Presented with being cold and clammy and diaphoretic and was having issues producing urine. Advised to go to emergency room for evaluation. Dx with UTI and Hypokalemia Started on oral Nitrofurantoin and Potassium and discharged. Ct of abd showed. Stable adrenal nodule. Had right renal cyst and liver cyst which are old. Er notes showed mild hypokalemia and leukocytosis. Went back [facility] on 12/15/22 with a 104 temp. Admitted. Started on IV abx. Discharged on 12/16/22. Which was the last working day in the office. Nitrofurantoin d/c and Cipro oral given at discharge. Still on abx. We do not have full hospital records. His potassium was increased bid. Feeling much . No fever or chills. Still very fatigued. No burning or frequency. They apparently did do a repeat chest xray that was negative. Appetite is improving. No vomiting. Mild nausea. No new back pain. No shortness of breath. Has had some cough. MEDICATIONS: Current Outpatient Medications Medication Sig ciprofloxacin HCl (CIPRO) 500 mg tablet testosterone (ANDROGEL PUMP) 20.25 mg/1.25 gram (1.62 %) transdermal gel APPLY 4 PUMPS TOPICALLY DAILY. sertraline (ZOLOFT) 50 mg tablet Take 1.5 tablets by mouth once daily. losartan (COZAAR) 25 mg tablet Take 1 tablet by mouth once daily. atorvastatin (LIPITOR) 20 mg tablet Take 1 tablet by mouth daily at bedtime. For cholesterol. allopurinol (ZYLOPRIM) 300 mg tablet Take 1 tablet by mouth once daily. For gout. esomeprazole (NEXIUM) 40 mg capsule Take 1 capsule by mouth twice daily before meals. amLODIPine (NORVASC) 5 mg tablet Take 1 tablet by mouth once daily. potassium chloride (K-TAB) 10 mEq tablet Take 2 tablets by mouth once daily. (Patient taking differently: Take 20 mEq by mouth once daily. 40 mEq daily for seven days) albuterol HFA (PROAIR HFA) 90 mcg/actuation inhaler Inhale 2 Puffs as instructed every 4 hours as needed (FOR COUGH OR WHEEZE). CPAP Requires replacement machine at same settings. Cholecalciferol, Vitamin D3, (VITAMIN D) 1,000 unit cap Take 1 capsule by mouth once daily. cyanocobalamin (VITAMIN B-12) 1,000 mcg tab Take 1,000 mcg by mouth once daily. MULTIVITAMIN TAB Take one(1) tablet daily BY MOUTH. nitrofurantoin monohydrate and macrocrystal (MACROBID) 100 mg capsule Take 100 mg by mouth twice daily. For seven days for UTI (Patient not taking: Reported on 12/19/2022) oxyCODONE-acetaminophen 5-325 mg (PERCOCET) (Patient not taking: No sig reported) No current facility-administered medications for this visit. ALLERGIES: ALLERGIES Allergen Reactions Sulfa (Sulfonamide * Rash PAST MEDICAL HISTORY Diagnosis Date Abdominal pain, unspecified site Adrenal nodule (HCC) unchanged after >2 years Anxiety state, unspecified Asthma childhood CAD (coronary artery disease) Chronic low back pain Diaphragmatic hernia without mention of obstruction or gangrene Diaphragmatic hernia without mention of obstruction or gangrene Diverticulosis of colon (without mention of hemorrhage) Esophageal reflux Essential hypertension, benign 03/20/2012 Fibromyalgia Hemorrhoids Hypogonadism male treated per urology Impotence of organic origin Lung nodule repeat ct in 01/02 Palpitations Personal history of colonic polyps 2004 polyps Pulmonary embolism (HCC) completed treatment per pulm Recurrent pneumonia 14 times PAST SURGICAL HISTORY Procedure Laterality Date ADENOIDECTOMY PRIMARY <AGE 14 Adenoidectomy COLONOSCOPY N/A 07/20/2016 MAC COLONOSCOPY 01/24/2019 adenomatous colon polyps, repeat in 3 years COLONOSCOPY FLX DX W/COLLJ SPEC WHEN PFRMD 2004 Colonoscopy COLONOSCOPY FLX DX W/COLLJ SPEC WHEN PFRMD 03/07/11 wnl EGD N/A 07/20/2016 MAC EGD 01/24/2019 gastritis and gastric polyps ESOPHAGOGASTRODUODENOSCOPY TRANSORAL DIAGNOSTIC 05/24/2011 EGD HEMORRHOIDECTOMY XTRNL 2/> COLUMN/GROUP 04/30/15 KNEE SURGERY HX Right 1987 LAPS SURG CHOLECYSTECTOMY W/CHOLANGIOGRAPHY 2004 [facility] - Dr. Hernandes OPEN REPAIR OF ROTATOR CUFF ACUTE Rotator cuff repair PERCUTANEOUS CORONARY INTERVENTION 2007 stent to LAD TONSILLECTOMY PRIMARY/SECONDARY <AGE 14 Tonsillectomy FAMILY HISTORY Problem Relation Age of Onset Hypertension Mother Heart Mother Stroke Mother Allergies Mother Breast Cancer Mother Heart Father of [place] Allergies Father Asthma Daughter Allergies Sister Allergies Brother Allergies Daughter Social History Tobacco Use Smoking status: Former Packs/day: 2.00 Years: 5.00 Pack years: 10.00 Types: Cigarettes Quit date: 02/08/1987 Years since quittin.8 Smokeless tobacco: Former Types: Chew Quit date: 12/03/2017 Tobacco comments: patient smoked for a few months in 2006 Quit chew June 2022 Vaping Use Vaping Use: Never used Substance Use Topics Alcohol use: Not Currently Drug use: Not Currently Comment: marijuana in past not since 20 y/o Reviewed current medications, allergies, past medical history, surgical history, family history and social history today. REVIEW OF SYSTEMS All other reviewed and negative other than HPI. VITALS: BP 138/68 Pulse 64 Ht 195.6 cm (6' 5 ) Wt (!) 149.4 kg (329 lb 6.4 oz) SpO2 97% BMI 39.06 kg/m Last 4 Encounter Wt Readings: Date: Wt: 12/15/2022 146.5 kg (323 lb) 12/14/2022 145.7 kg (321 lb 3.2 oz) 12/01/2022 143.8 kg (317 lb) 10/25/2022 147.4 kg (325 lb) PHYSICAL EXAMINATION: General appearance: looks dramatically better from last ov. Skin: Skin color, texture, turgor normal, no suspicious rashes or lesions Head: Normocephalic, no masses, lesions, tenderness or abnormalities Back: no cva tenderness. Lungs: Lungs clear to auscultation. No wheezing, rhonchi, rales Heart: RRR without murmur, gallop, or rubs. No ectopy Abdomen: Normal abdominal exam, Abdomen soft, non-tender. Bowel sounds normal. No masses, organomegaly ASSESSMENT/PLAN: 1. Urinary tract infection without hematuria, site unspecified - ICD9: 599.0, ICD10: N39.0 (primary diagnosis) - continue cipro. Finish out the entire amount for 10 days. (Was originally told 5 by hospital) Red flags for re-assessment reviewed with patient in detail. Clinically improving. - close follow up. Does see urology. Will wait for final records. 2. Hypokalemia - ICD9: 276.8, ICD10: E87.6 - check labs. - BASIC METABOLIC PNL 3. Leukocytosis, unspecified type - ICD9: 288.60, ICD10: D72.829 - CBC + DIFF Chloe Myers MD documented in this encounter [facility] 12-15-2022 Miscellaneous Notes Formatting of this note might be differe nt from the original. Patient's son calling to say his father was seen @ [facility] ER yesterday afternoon and diagnosed with prostatitis. He was prescribed antibiotics. This afternoon patient developed fever with shaking chills. Patient took Acetaminophen for fever at 1730 PM without effect. Temp is now increasing to 104 Disposition: ED now. Patient's son is agreeable and will transport his father to [facility]. Tamra Chau RN Reason for Disposition Fever > 103 F (39.4 C) Urine infection (MALE; cystitis, pyelonephritis, prostatitis, epididymitis, orchitis, urethritis) diagnosed recently Answer Assessment - Initial Assessment Questions 1. ANTIBIOTIC: Antibiotic prescribed 12/14 @ [facility] ER 2. DURATION: Started yesterday 3. MAIN SYMPTOM: shaking chills and fever 4. FEVER: fever started this afternoon and is increasing. T-104 one hour after taking Acetaminophen 5. OTHER SYMPTOMS: Do you have any other symptoms? (e.g., flank pain, penile discharge, scrotal pain, blood in urine) Protocols used: Recent Medical Visit for Illness Follow-up [id number], Urinary Tract Infection on Antibiotic Follow-up Call - [id number] documented in this encounter [facility] 12-15-2022 Note HNO ID: [id number] Author: Latisha Callahan PA-C Service: ? Author Type: Physician Knitting Demonstrator Type: Progress Notes Filed: 12/21/2022 8:11 AM Note Text: FOLLOW [facility] VISIT - [id number] DATE OF SERVICE: 12/15/2022 : 1955 REFERRING PHYSICIAN: Chloe Myers MD Lazaro is a patient I am following for GERD and need for surveillance colonoscopy due to history of colon polyps. Dr. Bennett performed upper and lower endoscopy on 12/01/22. Findings per operative report showed: Medium-sized hiatal hernia, irregular GE junction, gastric fundic polyps, diverticulosis, and hemorrhoids. Pathology demonstrated: FINAL DIAGNOSIS A. Duodenal bulb, biopsy: - Gastric heterotopia. B. Stomach, antrum, biopsy: - No pathologic abnormalities. C. Gastric polyp, biopsy: - Fundic gland polyp. D. Gastroesophageal junction, biopsy: - Fragments of squamous and gastric type glandular mucosa showing no pathologic abnormalities. The patient notes no abdominal complaints since the procedure. Did have interim ED visit for UTI yesterday, on antibiotics. VITALS: Blood pressure 124/68, pulse 86, temperature (!) 35.7 ?C (96.3 ?F), temperature source Temporal, resp. rate 16, height 195.6 cm (6' 5 ), weight (!) 146.5 kg (323 lb), SpO2 98 %. General: patient is alert, cooperative, pleasant, appears slightly pale but in no acute distress On examination, the abdomen is benign. Assessment IMPRESSION: GERD, fundic gland polyps, hiatal hernia. Normal colonoscopy, history of colon polyps PLAN: The operative findings and pathology report were reviewed with the patient, and the patient has had the opportunity to ask questions and have questions answered. If the patient notes any problems or changes in bowel function, the patient should contact me immediately. Otherwise I recommend follow up upper and lower endoscopy in 5 years for surveillance Continue PPI Push fluids and follow up with primary care for UTI Patient verbalized understanding of all above and agreed with the plan Diagnoses: (K21.9) Gastroesophageal reflux disease, unspecified whether esophagitis present (primary encounter diagnosis) (D13.1) Fundic gland polyps of stomach, benign (Z86.010) History of colonic polyps (K44.9) Hiatal hernia I spent a total of 23 minutes on the date of the service which included preparing to see the patient, [id number] patient care, completing clinical documentation, obtaining and/or reviewing separately obtained history, counseling and educating the patient/family/caregiver, independently interpreting results (not separately reported), and communicating results to the patient/family/caregiver. Latisha Callahan PA-C [facility] 12-14-2022 Note HNO ID: [id number] Author: Chloe Myers MD Service: ? Author Type: Physician Type: Progress Notes Filed: 12/14/2022 5:01 PM Note Text: Patient presents with: UTI HPI: Patient presents today for office visit for UTI symptoms. Here with son. Started over the weekend with muscle aches and urinary frequency. Progressed over the last couple days. Complaints of just not feeling good . Sick to stomach. No vomiting. Unable to eat and drink over the last 2 days. Severe fatigue with B/L flank pain. Started with fever yesterday. As high has 101.2. Hx of sepsis in past with UTI. Has some diarrhea . He has been cold and clammy and diaphoretic. Having issues producing urine. MEDICATIONS: Current Outpatient Medications Medication Sig testosterone (ANDROGEL PUMP) 20.25 mg/1.25 gram (1.62 %) transdermal gel APPLY 4 PUMPS TOPICALLY DAILY. oxyCODONE-acetaminophen 5-325 mg (PERCOCET) sertraline (ZOLOFT) 50 mg tablet Take 1.5 tablets by mouth once daily. losartan (COZAAR) 25 mg tablet Take 1 tablet by mouth once daily. atorvastatin (LIPITOR) 20 mg tablet Take 1 tablet by mouth daily at bedtime. For cholesterol. allopurinol (ZYLOPRIM) 300 mg tablet Take 1 tablet by mouth once daily. For gout. esomeprazole (NEXIUM) 40 mg capsule Take 1 capsule by mouth twice daily before meals. amLODIPine (NORVASC) 5 mg tablet Take 1 tablet by mouth once daily. potassium chloride (K-TAB) 10 mEq tablet Take 2 tablets by mouth once daily. albuterol HFA (PROAIR HFA) 90 mcg/actuation inhaler Inhale 2 Puffs as instructed every 4 hours as needed (FOR COUGH OR WHEEZE). CPAP Requires replacement machine at same settings. Cholecalciferol, Vitamin D3, (VITAMIN D) 1,000 unit cap Take 1 capsule by mouth once daily. cyanocobalamin (VITAMIN B-12) 1,000 mcg tab Take 1,000 mcg by mouth once daily. MULTIVITAMIN TAB Take one(1) tablet daily BY MOUTH. No current facility-administered medications for this visit. ALLERGIES: ALLERGIES Allergen Reactions Sulfa (Sulfonamide * Rash PAST MEDICAL HISTORY Diagnosis Date Abdominal pain, unspecified site Adrenal nodule (HCC) unchanged after >2 years Anxiety state, unspecified Asthma childhood CAD (coronary artery disease) Chronic low back pain Diaphragmatic hernia without mention of obstruction or gangrene Diaphragmatic hernia without mention of obstruction or gangrene Diverticulosis of colon (without mention of hemorrhage) Esophageal reflux Essential hypertension, benign 03/20/2012 Fibromyalgia Hemorrhoids Hypogonadism male treated per urology Impotence of organic origin Lung nodule repeat ct in 01/02 Palpitations Personal history of colonic polyps 2004 polyps Pulmonary embolism (HCC) completed treatment per pulm Recurrent pneumonia 14 times PAST SURGICAL HISTORY Procedure Laterality Date ADENOIDECTOMY PRIMARY Adenoidectomy COLONOSCOPY N/A 07/20/2016 MAC COLONOSCOPY 01/24/2019 adenomatous colon polyps, repeat in 3 years COLONOSCOPY FLX DX W/COLLJ SPEC WHEN PFRMD 2004 Colonoscopy COLONOSCOPY FLX DX W/COLLJ SPEC WHEN PFRMD 03/07/11 wnl EGD N/A 07/20/2016 MAC EGD 01/24/2019 gastritis and gastric polyps ESOPHAGOGASTRODUODENOSCOPY TRANSORAL DIAGNOSTIC 05/24/2011 EGD HEMORRHOIDECTOMY XTRNL 2/> COLUMN/GROUP 04/30/15 KNEE SURGERY HX Right 1988 LAPS SURG CHOLECYSTECTOMY W/CHOLANGIOGRAPHY 2004 [facility] - Dr. Hernandes OPEN REPAIR OF ROTATOR CUFF ACUTE Rotator cuff repair PERCUTANEOUS CORONARY INTERVENTION 2006 stent to LAD TONSILLECTOMY PRIMARY/SECONDARY Tonsillectomy FAMILY HISTORY Problem Relation Age of Onset Hypertension Mother Heart Mother Stroke Mother Allergies Mother Breast Cancer Mother Heart Father of [place] Allergies Father Asthma Daughter Allergies Sister Allergies Brother Allergies Daughter Social History Tobacco Use Smoking status: Former Packs/day: 2.00 Years: 5.00 Pack years: 10.00 Types: Cigarettes Quit date: 02/08/1987 Years since quittin.8 Smokeless tobacco: Current Types: Chew Last attempt to quit: 12/03/2017 Tobacco comments: patient smoked for a few months in 2006 Vaping Use Vaping Use: Never used Substance Use Topics Alcohol use: Yes Alcohol/week: 30.0 standard drinks Comment: rare Drug use: No Comment: marijuana in past not since 20 y/o Reviewed current medications, allergies, past medical history, surgical history, family history and social history today. REVIEW OF SYSTEMS All other reviewed and negative other than HPI. VITALS: BP 130/60 Pulse 80 Temp (!) 38.3 ?C (100.9 ?F) Wt (!) 145.7 kg (321 lb 3.2 oz) SpO2 99% BMI 38.09 kg/m? Last 4 Encounter Wt Readings: Date: Wt: 12/14/2022 145.7 kg (321 lb 3.2 oz) 12/01/2022 143.8 kg (317 lb) 10/25/2022 147.4 kg (325 lb) 09/22/2022 150.1 kg (331 lb) PHYSICAL EXAMINATION: General appearance: appears ill. Mucous membranes are dry. Accompanied by family me (more content not included)... [facility] 12-14-2022 History of Present illness Narrative Formatting of this note is different fro m the original. Patient presents with: UTI HPI: Patient presents today for office visit for UTI symptoms. Here with son. Started over the weekend with muscle aches and urinary frequency. Progressed over the last couple days. Complaints of just not feeling good . Sick to stomach. No vomiting. Unable to eat and drink over the last 2 days. Severe fatigue with B/L flank pain. Started with fever yesterday. As high has 101.2. Hx of sepsis in past with UTI. Has some diarrhea . He has been cold and clammy and diaphoretic. Having issues producing urine. MEDICATIONS: Current Outpatient Medications Medication Sig testosterone (ANDROGEL PUMP) 20.25 mg/1.25 gram (1.62 %) transdermal gel APPLY 4 PUMPS TOPICALLY DAILY. oxyCODONE-acetaminophen 5-325 mg (PERCOCET) sertraline (ZOLOFT) 50 mg tablet Take 1.5 tablets by mouth once daily. losartan (COZAAR) 25 mg tablet Take 1 tablet by mouth once daily. atorvastatin (LIPITOR) 20 mg tablet Take 1 tablet by mouth daily at bedtime. For cholesterol. allopurinol (ZYLOPRIM) 300 mg tablet Take 1 tablet by mouth once daily. For gout. esomeprazole (NEXIUM) 40 mg capsule Take 1 capsule by mouth twice daily before meals. amLODIPine (NORVASC) 5 mg tablet Take 1 tablet by mouth once daily. potassium chloride (K-TAB) 10 mEq tablet Take 2 tablets by mouth once daily. albuterol HFA (PROAIR HFA) 90 mcg/actuation inhaler Inhale 2 Puffs as instructed every 4 hours as needed (FOR COUGH OR WHEEZE). CPAP Requires replacement machine at same settings. Cholecalciferol, Vitamin D3, (VITAMIN D) 1,000 unit cap Take 1 capsule by mouth once daily. cyanocobalamin (VITAMIN B-12) 1,000 mcg tab Take 1,000 mcg by mouth once daily. MULTIVITAMIN TAB Take one(1) tablet daily BY MOUTH. No current facility-administered medications for this visit. ALLERGIES: ALLERGIES Allergen Reactions Sulfa (Sulfonamide * Rash PAST MEDICAL HISTORY Diagnosis Date Abdominal pain, unspecified site Adrenal nodule (HCC) unchanged after >2 years Anxiety state, unspecified Asthma childhood CAD (coronary artery disease) Chronic low back pain Diaphragmatic hernia without mention of obstruction or gangrene Diaphragmatic hernia without mention of obstruction or gangrene Diverticulosis of colon (without mention of hemorrhage) Esophageal reflux Essential hypertension, benign 03/20/2012 Fibromyalgia Hemorrhoids Hypogonadism male treated per urology Impotence of organic origin Lung nodule repeat ct in 01/02 Palpitations Personal history of colonic polyps 2004 polyps Pulmonary embolism (HCC) completed treatment per pulm Recurrent pneumonia 14 times PAST SURGICAL HISTORY Procedure Laterality Date ADENOIDECTOMY PRIMARY <AGE 14 Adenoidectomy COLONOSCOPY N/A 07/20/2016 MAC COLONOSCOPY 01/24/2019 adenomatous colon polyps, repeat in 3 years COLONOSCOPY FLX DX W/COLLJ SPEC WHEN PFRMD 2004 Colonoscopy COLONOSCOPY FLX DX W/COLLJ SPEC WHEN PFRMD 03/07/11 wnl EGD N/A 07/20/2016 MAC EGD 01/24/2019 gastritis and gastric polyps ESOPHAGOGASTRODUODENOSCOPY TRANSORAL DIAGNOSTIC 05/24/2011 EGD HEMORRHOIDECTOMY XTRNL 2/> COLUMN/GROUP 04/30/15 KNEE SURGERY HX Right 1988 LAPS SURG CHOLECYSTECTOMY W/CHOLANGIOGRAPHY 2004 [facility] - Dr. Hernandes OPEN REPAIR OF ROTATOR CUFF ACUTE Rotator cuff repair PERCUTANEOUS CORONARY INTERVENTION 2006 stent to LAD TONSILLECTOMY PRIMARY/SECONDARY <AGE 14 Tonsillectomy FAMILY HISTORY Problem Relation Age of Onset Hypertension Mother Heart Mother Stroke Mother Allergies Mother Breast Cancer Mother Heart Father of [place] Allergies Father Asthma Daughter Allergies Sister Allergies Brother Allergies Daughter Social History Tobacco Use Smoking status: Former Packs/day: 2.00 Years: 5.00 Pack years: 10.00 Types: Cigarettes Quit date: 02/08/1987 Years since quittin.8 Smokeless tobacco: Current Types: Chew Last attempt to quit: 12/03/2017 Tobacco comments: patient smoked for a few months in 2006 Vaping Use Vaping Use: Never used Substance Use Topics Alcohol use: Yes Alcohol/week: 30.0 standard drinks Comment: rare Drug use: No Comment: marijuana in past not since 20 y/o Reviewed current medications, allergies, past medical history, surgical history, family history and social history today. REVIEW OF SYSTEMS All other reviewed and negative other than HPI. VITALS: BP 130/60 Pulse 80 Temp (!) 38.3 C (100.9 F) Wt (!) 145.7 kg (321 lb 3.2 oz) SpO2 99% BMI 38.09 kg/m Last 4 Encounter Wt Readings: Date: Wt: 12/14/2022 145.7 kg (321 lb 3.2 oz) 12/01/2022 143.8 kg (317 lb) 10/25/2022 147.4 kg (325 lb) 09/22/2022 150.1 kg (331 lb) PHYSICAL EXAMINATION: General appearance: appears ill. Mucous membranes are dry. Accompanied by family member. Slightly diaphoretic. Neck: Supple, no adenopathy Lungs: Lungs clear to auscultation. No wheezing, rhonchi, rales Heart: RRR without murmur, gallop, or rubs. No ectopy Abdomen: Normal abdominal exam, Abdomen soft, non-tender. Bowel sounds normal. No masses, organomegaly Extremities: No deformities, edema, skin discoloration, clubbing or cyanosis. Good capillary refill. Musculoskeletal: No joint swelling, deformity, or tenderness No cva tenderness. ASSESSMENT/PLAN: 1. Urinary tract infection with hematuria, site unspecified - ICD9: 599.0, 599.70, ICD10: N39.0, R31.9 (primary diagnosis) - patient looks dehydrated and ill enough, I have recommended ER eval. Will be transported over by family. ER passport completed for hand off. 2. Fever, unspecified fever cause - ICD9: 780.60, ICD10: R50.9 3. Dehydration - ICD9: 276.51, ICD10: E86.0 Chloe Myers MD documented in this encounter [facility] 10-25-2022 Note HNO ID: [id number] Author: Chloe Myers MD Service: ? Author Type: Physician Type: Progress Notes Filed: 10/25/2022 2:59 PM Note Text: Patient presents with: Follow Up HPI: Patient presents today for office visit for follow up. PSYCH: Started on Sertraline 50 mg half tab to start then increase to 1 tablet daily. Feels ok . Denies side effects. Not sleeping well. Still feeling down and depressed. States it's gotten better though. Still has two more weeks before he has his divorce. No side effects. Does have some decreased sex drive on the meds. Says that is ok with current situation. Still some decreased ambition. 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 Not sure he can afford counseling right now. No suicidal ideation. 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 Labs were all stable. Component Latest Ref Rng AND Units 09/26/2022 WBC 3.70 - 11.00 k/uL 4.86 RBC 4.20 - 6.00 m/uL 5.64 Hemoglobin 13.0 - 17.0 g/dL 16.7 Hematocrit 39.0 - 51.0 % 48.7 MCV 80.0 - 100.0 fL 86.3 MCH 26.0 - 34.0 pg 29.6 MCHC 30.5 - 36.0 g/dL 34.3 RDW-CV 11.5 - 15.0 % 14.2 Platelet Count 150 - 400 k/uL 144 (L) MPV 9.0 - 12.7 fL 11.5 Neut% % 65.7 Abs Neut (ANC) 1.45 - 7.50 k/uL 3.19 Lymph% % 23.5 Abs Lymph 1.00 - 4.00 k/uL 1.14 [place]% % 8.6 Abs [place] <0.87 k/uL 0.42 Eosin% % 1.6 Abs Eosin <0.46 k/uL 0.08 Baso% % 0.4 Abs Baso <0.11 k/uL <0.03 Immature Gran % % 0.2 IMMATURE GRANS (ABS) <0.10 k/uL <0.03 NRBC /100 WBC 0.0 Absolute nRBC <0.01 k/uL <0.01 DTYPE Auto Protein, Total 6.3 - 8.0 g/dL 7.6 Albumin 3.9 - 4.9 g/dL 4.6 Calcium 8.5 - 10.2 mg/dL 9.7 Bilirubin, Total 0.2 - 1.3 mg/dL 1.0 Alkaline Phosphatase 38 - 113 U/L 74 AST 14 - 40 U/L 26 ALT 10 - 54 U/L 40 Glucose 74 - 99 mg/dL 114 (H) BUN 9 - 24 mg/dL 17 Creatinine 0.73 - 1.22 mg/dL 1.09 Sodium 136 - 144 mmol/L 142 Potassium 3.7 - 5.1 mmol/L 4.0 Chloride 97 - 105 mmol/L 105 CO2 22 - 30 mmol/L 26 Anion Gap 9 - 18 mmol/L 11 eGFR >=60 mL/min/1.73mA? 75 Cholesterol, Total <200 mg/dL 102 Triglyceride <150 mg/dL 186 (H) HDL Cholesterol >39 mg/dL 31 (L) Non HDL Cholesterol <130 mg/dL 71 Fasting Time hrs 12 VLDL Cholesterol <30 mg/dL 37 (H) TC:HDL Ratio <5.10 3.29 LDL Cholesterol <100 mg/dL 34 LDL:HDL Ratio <2.54 1.10 CK 51 - 298 U/L 81 WSR 0 - 15 mm/hr 2 CRP <0.9 mg/dL <0.3 Vitamin D 25 Hydroxy 31.0 - 80.0 ng/mL 33.0 MEDICATIONS: Current Outpatient Medications Medication Sig testosterone (ANDROGEL PUMP) 20.25 mg/1.25 gram (1.62 %) transdermal gel APPLY 4 PUMPS TOPICALLY DAILY. oxyCODONE-acetaminophen 5-325 mg (PERCOCET) sertraline (ZOLOFT) 50 mg tablet Take 1/2 tab once a day orally for one week then 1 tab once a day losartan (COZAAR) 25 mg tablet Take 1 tablet by mouth once daily. atorvastatin (LIPITOR) 20 mg tablet Take 1 tablet by mouth daily at bedtime. For cholesterol. allopurinol (ZYLOPRIM) 300 mg tablet Take 1 tablet by mouth once daily. For gout. esomeprazole (NEXIUM) 40 mg capsule Take 1 capsule by mouth twice daily before meals. amLODIPine (NORVASC) 5 mg tablet Take 1 tablet by mouth once daily. potassium chloride (K-TAB) 10 mEq tablet Take 2 tablets by mouth once daily. albuterol HFA (PROAIR HFA) 90 mcg/actuation inhaler Inhale 2 Puffs as instructed every 4 hours as needed (FOR COUGH OR WHEEZE). CPAP Requires replacement machine at same settings. Cholecalciferol, Vitamin D3, (VITAMIN D) 1,000 unit cap Take 1 capsule by mouth once daily. cyanocobalamin (VITAMIN B-12) 1,000 mcg tab Take 1,000 mcg by mouth once daily. MULTIVITAMIN TAB Take one(1) tablet daily BY MOUTH. No current facility-administered medications for this visit. ALLERGIES: ALLERGIES Allergen Reactions Sulfa (Sulfonamide * Rash PAST MEDICAL HISTORY Diagnosis Date Abdominal pain, unspecified site Adrenal nodule (HCC) unchanged after >2 years Anxiety state, unspecified Asthma childhood CAD (coronary artery disease) Chronic low back pain Diaphragmatic hernia without mention of obstruction or gangrene Diaphragmatic hernia without mention of obstruction or gangrene Diverticulosis of colon (without mention of hemorrhage) Esophageal reflux Essential hypertension, benign 03/20/2012 Fibromyalgia Hemorrhoids Hypogonadism male treated per urology Impotence of organic origin Lung nodule repeat ct in 01/02 Palpitations Personal history of colonic polyps 2004 polyps Pulmonary embolism (HCC) completed treatment per pulm Recurrent pneumonia 14 times PAST SURGICAL HISTORY Procedure Laterality Date ADENOIDECTOMY PRIMARY Adenoidectomy COLONOSCOPY N/A 07/20/2016 MAC COLONOSCOPY 01/24/2019 adenomatous colon polyps, repeat in 3 years COLONOSCOPY FLX DX W/COLLJ SPEC WHEN PFRMD 2004 Colonoscopy COLONOSCOPY FLX DX W/COLLJ SPEC WHEN PFRMD 03/07/11 wnl EGD N/A 07/20/2016 MAC EGD 01/24/2019 gastritis and gastric polyps ESOPHAGOGASTRODUODENOSCOPY TRANSORAL (more content not included)... [facility] 10-25-2022 Miscellaneous Notes Formatting of this note might be differe nt from the original. Juliane from [facility] calls and is asking for provider to clarify sertraline instructions. Patient was previously on 50 mg tablet after increasing dose from 1/2 tablet to a full tablet. New prescription has 2 instructions on it. Does provider want to increase dose to 1.5 tablets or does provider want patient to take 1 tablet. Please send over prescription with updated directions. Please review and advise, Allison Tavares RN documented in this encounter [facility] 10-25-2022 History of Present illness Narrative Formatting of this note is different fro m the original. Patient presents with: Follow Up HPI: Patient presents today for office visit for follow up. PSYCH: Started on Sertraline 50 mg half tab to start then increase to 1 tablet daily. Feels ok . Denies side effects. Not sleeping well. Still feeling down and depressed. States it's gotten better though. Still has two more weeks before he has his divorce. No side effects. Does have some decreased sex drive on the meds. Says that is ok with current situation. Still some decreased ambition. 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 Not sure he can afford counseling right now. No suicidal ideation. 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 Labs were all stable. Component Latest Ref Rng & Units 09/26/2022 WBC 3.70 - 11.00 k/uL 4.86 RBC 4.20 - 6.00 m/uL 5.64 Hemoglobin 13.0 - 17.0 g/dL 16.7 Hematocrit 39.0 - 51.0 % 48.7 MCV 80.0 - 100.0 fL 86.3 MCH 26.0 - 34.0 pg 29.6 MCHC 30.5 - 36.0 g/dL 34.3 RDW-CV 11.5 - 15.0 % 14.2 Platelet Count 150 - 400 k/uL 144 (L) MPV 9.0 - 12.7 fL 11.5 Neut% % 65.7 Abs Neut (ANC) 1.45 - 7.50 k/uL 3.19 Lymph% % 23.5 Abs Lymph 1.00 - 4.00 k/uL 1.14 [place]% % 8.6 Abs [place] <0.87 k/uL 0.42 Eosin% % 1.6 Abs Eosin <0.46 k/uL 0.08 Baso% % 0.4 Abs Baso <0.11 k/uL <0.03 Immature Gran % % 0.2 IMMATURE GRANS (ABS) <0.10 k/uL <0.03 NRBC /100 WBC 0.0 Absolute nRBC <0.01 k/uL <0.01 DTYPE Auto Protein, Total 6.3 - 8.0 g/dL 7.6 Albumin 3.9 - 4.9 g/dL 4.6 Calcium 8.5 - 10.2 mg/dL 9.7 Bilirubin, Total 0.2 - 1.3 mg/dL 1.0 Alkaline Phosphatase 38 - 113 U/L 74 AST 14 - 40 U/L 26 ALT 10 - 54 U/L 40 Glucose 74 - 99 mg/dL 114 (H) BUN 9 - 24 mg/dL 17 Creatinine 0.73 - 1.22 mg/dL 1.09 Sodium 136 - 144 mmol/L 142 Potassium 3.7 - 5.1 mmol/L 4.0 Chloride 97 - 105 mmol/L 105 CO2 22 - 30 mmol/L 26 Anion Gap 9 - 18 mmol/L 11 eGFR >=60 mL/min/1.73m 75 Cholesterol, Total <200 mg/dL 102 Triglyceride <150 mg/dL 186 (H) HDL Cholesterol >39 mg/dL 31 (L) Non HDL Cholesterol <130 mg/dL 71 Fasting Time hrs 12 VLDL Cholesterol <30 mg/dL 37 (H) TC:HDL Ratio <5.10 3.29 LDL Cholesterol <100 mg/dL 34 LDL:HDL Ratio <2.54 1.10 CK 51 - 298 U/L 81 WSR 0 - 15 mm/hr 2 CRP <0.9 mg/dL <0.3 Vitamin D 25 Hydroxy 31.0 - 80.0 ng/mL 33.0 MEDICATIONS: Current Outpatient Medications Medication Sig testosterone (ANDROGEL PUMP) 20.25 mg/1.25 gram (1.62 %) transdermal gel APPLY 4 PUMPS TOPICALLY DAILY. oxyCODONE-acetaminophen 5-325 mg (PERCOCET) sertraline (ZOLOFT) 50 mg tablet Take 1/2 tab once a day orally for one week then 1 tab once a day losartan (COZAAR) 25 mg tablet Take 1 tablet by mouth once daily. atorvastatin (LIPITOR) 20 mg tablet Take 1 tablet by mouth daily at bedtime. For cholesterol. allopurinol (ZYLOPRIM) 300 mg tablet Take 1 tablet by mouth once daily. For gout. esomeprazole (NEXIUM) 40 mg capsule Take 1 capsule by mouth twice daily before meals. amLODIPine (NORVASC) 5 mg tablet Take 1 tablet by mouth once daily. potassium chloride (K-TAB) 10 mEq tablet Take 2 tablets by mouth once daily. albuterol HFA (PROAIR HFA) 90 mcg/actuation inhaler Inhale 2 Puffs as instructed every 4 hours as needed (FOR COUGH OR WHEEZE). CPAP Requires replacement machine at same settings. Cholecalciferol, Vitamin D3, (VITAMIN D) 1,000 unit cap Take 1 capsule by mouth once daily. cyanocobalamin (VITAMIN B-12) 1,000 mcg tab Take 1,000 mcg by mouth once daily. MULTIVITAMIN TAB Take one(1) tablet daily BY MOUTH. No current facility-administered medications for this visit. ALLERGIES: ALLERGIES Allergen Reactions Sulfa (Sulfonamide * Rash PAST MEDICAL HISTORY Diagnosis Date Abdominal pain, unspecified site Adrenal nodule (HCC) unchanged after >2 years Anxiety state, unspecified Asthma childhood CAD (coronary artery disease) Chronic low back pain Diaphragmatic hernia without mention of obstruction or gangrene Diaphragmatic hernia without mention of obstruction or gangrene Diverticulosis of colon (without mention of hemorrhage) Esophageal reflux Essential hypertension, benign 03/20/2012 Fibromyalgia Hemorrhoids Hypogonadism male treated per urology Impotence of organic origin Lung nodule repeat ct in 01/02 Palpitations Personal history of colonic polyps 2004 polyps Pulmonary embolism (HCC) completed treatment per pulm Recurrent pneumonia 14 times PAST SURGICAL HISTORY Procedure Laterality Date ADENOIDECTOMY PRIMARY <AGE 14 Adenoidectomy COLONOSCOPY N/A 07/20/2016 MAC COLONOSCOPY 01/24/2019 adenomatous colon polyps, repeat in 3 years COLONOSCOPY FLX DX W/COLLJ SPEC WHEN PFRMD 2004 Colonoscopy COLONOSCOPY FLX DX W/COLLJ SPEC WHEN PFRMD 03/07/11 wnl EGD N/A 07/20/2016 MAC EGD 01/24/2019 gastritis and gastric polyps ESOPHAGOGASTRODUODENOSCOPY TRANSORAL DIAGNOSTIC 05/24/2011 EGD HEMORRHOIDECTOMY XTRNL 2/> COLUMN/GROUP 04/30/15 KNEE SURGERY HX Right 1988 LAPS SURG CHOLECYSTECTOMY W/CHOLANGIOGRAPHY 2004 [facility] - Dr. Hernandes OPEN REPAIR OF ROTATOR CUFF ACUTE Rotator cuff repair PERCUTANEOUS CORONARY INTERVENTION 2007 stent to LAD TONSILLECTOMY PRIMARY/SECONDARY <AGE 14 Tonsillectomy FAMILY HISTORY Problem Relation Age of Onset Hypertension Mother Heart Mother Stroke Mother Allergies Mother Breast Cancer Mother Heart Father of [place] Allergies Father Asthma Daughter Allergies Sister Allergies Brother Allergies Daughter Social History Tobacco Use Smoking status: Former Packs/day: 2.00 Years: 5.00 Pack years: 10.00 Types: Cigarettes Quit date: 02/08/1987 Years since quittin.7 Smokeless tobacco: Current Types: Chew Last attempt to quit: 12/03/2017 Tobacco comments: patient smoked for a few months in 2006 Vaping Use Vaping Use: Never used Substance Use Topics Alcohol use: Yes Alcohol/week: 30.0 standard drinks Comment: rare Drug use: No Comment: marijuana in past not since 20 y/o Reviewed current medications, allergies, past medical history, surgical history, family history and social history today. REVIEW OF SYSTEMS Is supposed to have his colonoscopy done due to flutter episode. Some dyspepsia since stressed. No black or bloody stools. . Wants to wait to get stress controlled. Is on nexium. No chest pain or shortness of breath. All other reviewed and negative other than HPI. HEALTH MAINTENANCE: Reviewed health maintenance issues today and recommended the following in detail. BP CONTROLLED (<130/80) Never done COLORECTAL CANCER SCREENING -seeing gi. VITALS: BP 130/66 Pulse 78 Ht 195.6 cm (6' 5 ) Wt (!) 147.4 kg (325 lb) SpO2 98% BMI 38.54 kg/m Last 4 Encounter Wt Readings: Date: Wt: 09/22/2022 150.1 kg (331 lb) 04/26/2022 143.8 kg (317 lb) 02/12/2022 147.4 kg (325 lb) 12/11/2021 146.6 kg (323 lb 3.2 oz) PHYSICAL EXAMINATION: General appearance: Well appearing, alert, in no acute distress, well-hydrated, well nourished. Skin: Skin color, texture, turgor normal, no suspicious rashes or lesions Head: Normocephalic, no masses, lesions, tenderness or abnormalities Neck: Supple, no adenopath Lungs: Lungs clear to auscultation. No wheezing, rhonchi, rales Heart: RRR without murmur, gallop, or rubs. No ectopy Abdomen: Normal abdominal exam, Abdomen soft, non-tender. Bowel sounds normal. No masses, organomegaly Extremities: No deformities, edema, skin discoloration, clubbing or cyanosis. Good capillary refill. PSYCH:Affect normal. Normal speech. Normal eye contact ASSESSMENT/PLAN: 1. Essential hypertension, benign - ICD9: 401.1, ICD10: I10 (primary diagnosis) - good control - Continue current medication(s) - Goal of BP <130/80 2. History of pulmonary embolism - ICD9: V12.55, ICD10: Z86.711 - stable. 3. Coronary artery disease involving [place] coronary artery of chinik heart without angina pectoris - ICD9: 414.01, ICD10: I25.10 - call if any issues. 4. Atrial flutter, unspecified type (HCC) - ICD9: 427.32, ICD10: I48.92 - stable. 5. Adjustment disorder with anxious mood - ICD9: 309.24, ICD10: F43.22 - increase meds. Call if any issues. - SERTRALINE 50 MG TABLET Chloe Myers RTO in two months and prn. documented in this encounter [facility] 09-23-2022 Miscellaneous Notes Formatting of this note is different fro m the original. BEHAVIORAL HEALTH SOCIAL WORK CONSULT NOTE Service Date: September 23, 2022 Patient was identified by name and Patient: Lazaro Chapa [address] [facility] [address] (home) [phone] (cell) PCP: Chloe Myers MD [id number] [facility] [id number] Patient identified for [facility] from: PCP Reason for referral: Resources Behavioral Health Resources: Psychology - talk therapy [facility] encounter type: Telephone Encounter Assessment: Referral made to engage patient experiencing an Adjustment Disorder and to provide therapy resources. [facility] reviewed patient's chart and insurance to identify resources. Patient stated they are experiencing stress. Patient denies suicidal or homicidal ideation. Patient identified he does not want to engage in therapy at this time. [facility] provided his contact information to patient if he changes his mind. Patient was appreciative for the information. Medications: Current Outpatient Medications on File Prior to Visit Medication Sig sertraline (ZOLOFT) 50 mg tablet Take 1/2 tab once a day orally for one week then 1 tab once a day doxycycline monohydrate 100 mg tablet Take 1 tablet by mouth twice daily for 10 days. losartan (COZAAR) 25 mg tablet Take 1 tablet by mouth once daily. atorvastatin (LIPITOR) 20 mg tablet Take 1 tablet by mouth daily at bedtime. For cholesterol. allopurinol (ZYLOPRIM) 300 mg tablet Take 1 tablet by mouth once daily. For gout. esomeprazole (NEXIUM) 40 mg capsule Take 1 capsule by mouth twice daily before meals. amLODIPine (NORVASC) 5 mg tablet Take 1 tablet by mouth once daily. potassium chloride (K-TAB) 10 mEq tablet Take 2 tablets by mouth once daily. albuterol HFA (PROAIR HFA) 90 mcg/actuation inhaler Inhale 2 Puffs as instructed every 4 hours as needed (FOR COUGH OR WHEEZE). CPAP Requires replacement machine at same settings. Cholecalciferol, Vitamin D3, (VITAMIN D) 1,000 unit cap Take 1 capsule by mouth once daily. cyanocobalamin (VITAMIN B-12) 1,000 mcg tab Take 1,000 mcg by mouth once daily. MULTIVITAMIN TAB Take one(1) tablet daily BY MOUTH. No current facility-administered medications on file prior to visit. Curbside: No Screening Tools: No Substance Use / Abuse: No Outcome / Plan / Referrals: Attempts to Outreach: 1 attempt Final Disposition: Patient declined Patient Discharged?: Yes Patient reported that caregiver was able to meet their needs today?: Yes Internal Referrals : No Reason for External Referrals : N/A Intervention: Supportive Listening Provided referral information Resources Provided: Patient declined option for recommendations Time Spent: 15 minutes ZENAIDA Franco-S documented in this encounter [facility] 09-22-2022 Note HNO ID: [id number] Author: Chloe Myers MD Service: ? Author Type: Physician Type: Progress Notes Filed: 09/22/2022 5:20 PM Note Text: Patient presents with: Sinus Problem HPI: Patient presents today for office visit for follow up. ENT: Patient complains of sinus pressure. Duration: a number of weeks. Does use cpap. Fever: No. Headache: Yes. Sore throat: No. Ear pain: No. Nasal drainage: Yes. Cough: Yes. Shortness of breath: Yes. Nausea: Yes. Vomiting: No. Diarrhea: No. Previous treatment: netti pot. No covid test. Still seeing cardiology. Had atrial flutter but doing better. Is on eliquis. May need to change because of cost. Has been since April from his . Feeling stressed. Discussed counseling. Feeling down. No suicidal ideation. 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 Not current lung issues. Has a chronic leg pain. Does have chronic back pain. Walking makes it better. Does having achiness on and off. Had been told he had fibromyalgia years ago. Going off his statin made no difference. MEDICATIONS: Current Outpatient Medications Medication Sig losartan (COZAAR) 25 mg tablet Take 1 tablet by mouth once daily. atorvastatin (LIPITOR) 20 mg tablet Take 1 tablet by mouth daily at bedtime. For cholesterol. allopurinol (ZYLOPRIM) 300 mg tablet Take 1 tablet by mouth once daily. For gout. esomeprazole (NEXIUM) 40 mg capsule Take 1 capsule by mouth twice daily before meals. amLODIPine (NORVASC) 5 mg tablet Take 1 tablet by mouth once daily. potassium chloride (K-TAB) 10 mEq tablet Take 2 tablets by mouth once daily. albuterol HFA (PROAIR HFA) 90 mcg/actuation inhaler Inhale 2 Puffs as instructed every 4 hours as needed (FOR COUGH OR WHEEZE). CPAP Requires replacement machine at same settings. Cholecalciferol, Vitamin D3, (VITAMIN D) 1,000 unit cap Take 1 capsule by mouth once daily. cyanocobalamin (VITAMIN B-12) 1,000 mcg tab Take 1,000 mcg by mouth once daily. MULTIVITAMIN TAB Take one(1) tablet daily BY MOUTH. No current facility-administered medications for this visit. ALLERGIES: ALLERGIES Allergen Reactions Sulfa (Sulfonamide * Rash PAST MEDICAL HISTORY Diagnosis Date Abdominal pain, unspecified site Adrenal nodule (HCC) unchanged after >2 years Anxiety state, unspecified Asthma childhood CAD (coronary artery disease) Chronic low back pain Diaphragmatic hernia without mention of obstruction or gangrene Diaphragmatic hernia without mention of obstruction or gangrene Diverticulosis of colon (without mention of hemorrhage) Esophageal reflux Essential hypertension, benign 03/20/2012 Fibromyalgia Hemorrhoids Hypogonadism male treated per urology Impotence of organic origin Lung nodule repeat ct in 01/02 Palpitations Personal history of colonic polyps 2004 polyps Pulmonary embolism (HCC) completed treatment per pulm Recurrent pneumonia 14 times PAST SURGICAL HISTORY Procedure Laterality Date ADENOIDECTOMY PRIMARY Adenoidectomy COLONOSCOPY N/A 07/20/2016 MAC COLONOSCOPY 01/24/2019 adenomatous colon polyps, repeat in 3 years COLONOSCOPY FLX DX W/COLLJ SPEC WHEN PFRMD 2005 Colonoscopy COLONOSCOPY FLX DX W/COLLJ SPEC WHEN PFRMD 03/07/11 wnl EGD N/A 07/20/2016 MAC EGD 01/24/2019 gastritis and gastric polyps ESOPHAGOGASTRODUODENOSCOPY TRANSORAL DIAGNOSTIC 05/24/2011 EGD HEMORRHOIDECTOMY XTRNL 2/> COLUMN/GROUP 04/30/15 KNEE SURGERY HX Right 1988 LAPS SURG CHOLECYSTECTOMY W/CHOLANGIOGRAPHY 2004 [facility] - Dr. Hernandes OPEN REPAIR OF ROTATOR CUFF ACUTE Rotator cuff repair PERCUTANEOUS CORONARY INTERVENTION 2006 stent to LAD TONSILLECTOMY PRIMARY/SECONDARY Tonsillectomy FAMILY HISTORY Problem Relation Age of Onset Hypertension Mother Heart Mother Stroke Mother Allergies Mother Breast Cancer Mother Heart Father of [place] Allergies Father Asthma Daughter Allergies Sister Allergies Brother Allergies Daughter Social History Tobacco Use Smoking status: Former Packs/day: 2.00 Years: 5.00 Pack years: 10.00 Types: Cigarettes Quit date: 02/08/1987 Years since quittin.6 Smokeless tobacco: Current Types: Chew Last attempt to quit: 12/03/2017 Tobacco comments: patient smoked for a few months in 2006 Vaping Use Vaping Use: Never used Substance Use Topics Alcohol use: Yes Alcohol/week: 30.0 standard drinks Comment: rare Drug use: No Comment: marijuana in past not since 20 y/o Reviewed current medications, allergies, past medical history, surgical history, family history and social history today. REVIEW OF SYSTEMS No gi or gu issues. All other reviewed and negative other than HPI. HEALTH MAINTENANCE: Reviewed health maintenance issues today and recommended the following in detail. ABDOMINAL AORTIC ANEURYSM SCREENING Never done HIV SCREENING - declined. BP CONTROLLED (more content not included)... [facility] 09-22-2022 History of Present illness Narrative Formatting of this note is different fro m the original. Patient presents with: Sinus Problem HPI: Patient presents today for office visit for follow up. ENT: Patient complains of sinus pressure. Duration: a number of weeks. Does use cpap. Fever: No. Headache: Yes. Sore throat: No. Ear pain: No. Nasal drainage: Yes. Cough: Yes. Shortness of breath: Yes. Nausea: Yes. Vomiting: No. Diarrhea: No. Previous treatment: netti pot. No covid test. Still seeing cardiology. Had atrial flutter but doing better. Is on eliquis. May need to change because of cost. Has been since April from his . Feeling stressed. Discussed counseling. Feeling down. No suicidal ideation. 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 Not current lung issues. Has a chronic leg pain. Does have chronic back pain. Walking makes it better. Does having achiness on and off. Had been told he had fibromyalgia years ago. Going off his statin made no difference. MEDICATIONS: Current Outpatient Medications Medication Sig losartan (COZAAR) 25 mg tablet Take 1 tablet by mouth once daily. atorvastatin (LIPITOR) 20 mg tablet Take 1 tablet by mouth daily at bedtime. For cholesterol. allopurinol (ZYLOPRIM) 300 mg tablet Take 1 tablet by mouth once daily. For gout. esomeprazole (NEXIUM) 40 mg capsule Take 1 capsule by mouth twice daily before meals. amLODIPine (NORVASC) 5 mg tablet Take 1 tablet by mouth once daily. potassium chloride (K-TAB) 10 mEq tablet Take 2 tablets by mouth once daily. albuterol HFA (PROAIR HFA) 90 mcg/actuation inhaler Inhale 2 Puffs as instructed every 4 hours as needed (FOR COUGH OR WHEEZE). CPAP Requires replacement machine at same settings. Cholecalciferol, Vitamin D3, (VITAMIN D) 1,000 unit cap Take 1 capsule by mouth once daily. cyanocobalamin (VITAMIN B-12) 1,000 mcg tab Take 1,000 mcg by mouth once daily. MULTIVITAMIN TAB Take one(1) tablet daily BY MOUTH. No current facility-administered medications for this visit. ALLERGIES: ALLERGIES Allergen Reactions Sulfa (Sulfonamide * Rash PAST MEDICAL HISTORY Diagnosis Date Abdominal pain, unspecified site Adrenal nodule (HCC) unchanged after >2 years Anxiety state, unspecified Asthma childhood CAD (coronary artery disease) Chronic low back pain Diaphragmatic hernia without mention of obstruction or gangrene Diaphragmatic hernia without mention of obstruction or gangrene Diverticulosis of colon (without mention of hemorrhage) Esophageal reflux Essential hypertension, benign 03/20/2012 Fibromyalgia Hemorrhoids Hypogonadism male treated per urology Impotence of organic origin Lung nodule repeat ct in 01/02 Palpitations Personal history of colonic polyps 2004 polyps Pulmonary embolism (HCC) completed treatment per pulm Recurrent pneumonia 14 times PAST SURGICAL HISTORY Procedure Laterality Date ADENOIDECTOMY PRIMARY <AGE 14 Adenoidectomy COLONOSCOPY N/A 07/20/2016 MAC COLONOSCOPY 01/24/2019 adenomatous colon polyps, repeat in 3 years COLONOSCOPY FLX DX W/COLLJ SPEC WHEN PFRMD 2004 Colonoscopy COLONOSCOPY FLX DX W/COLLJ SPEC WHEN PFRMD 03/07/11 wnl EGD N/A 07/20/2016 MAC EGD 01/24/2019 gastritis and gastric polyps ESOPHAGOGASTRODUODENOSCOPY TRANSORAL DIAGNOSTIC 05/24/2011 EGD HEMORRHOIDECTOMY XTRNL 2/> COLUMN/GROUP 04/30/15 KNEE SURGERY HX Right 1988 LAPS SURG CHOLECYSTECTOMY W/CHOLANGIOGRAPHY 2004 [facility] - Dr. Hernandes OPEN REPAIR OF ROTATOR CUFF ACUTE Rotator cuff repair PERCUTANEOUS CORONARY INTERVENTION 2006 stent to LAD TONSILLECTOMY PRIMARY/SECONDARY <AGE 14 Tonsillectomy FAMILY HISTORY Problem Relation Age of Onset Hypertension Mother Heart Mother Stroke Mother Allergies Mother Breast Cancer Mother Heart Father of [place] Allergies Father Asthma Daughter Allergies Sister Allergies Brother Allergies Daughter Social History Tobacco Use Smoking status: Former Packs/day: 2.00 Years: 5.00 Pack years: 10.00 Types: Cigarettes Quit date: 02/08/1987 Years since quittin.6 Smokeless tobacco: Current Types: Chew Last attempt to quit: 12/03/2017 Tobacco comments: patient smoked for a few months in 2006 Vaping Use Vaping Use: Never used Substance Use Topics Alcohol use: Yes Alcohol/week: 30.0 standard drinks Comment: rare Drug use: No Comment: marijuana in past not since 20 y/o Reviewed current medications, allergies, past medical history, surgical history, family history and social history today. REVIEW OF SYSTEMS No gi or gu issues. All other reviewed and negative other than HPI. HEALTH MAINTENANCE: Reviewed health maintenance issues today and recommended the following in detail. ABDOMINAL AORTIC ANEURYSM SCREENING Never done HIV SCREENING - declined. BP CONTROLLED (<130/80) Never done DTAP,TDAP,TD(1 - Tdap) Never done SHINGRIX VACCINE(1 of 2) Never done PNEUMOCOCCAL: 65+(2 - PCV) due on 04/19/2013 COVID-19 VACCINE(4 - Booster for Pfizer series) due on 06/28/2021 COLORECTAL CANCER SCREENING -seeing gi. DEPRESSION ASSESSMENT Never done ADVANCE DIRECTIVE DISCUSSION - on file. VITALS: BP 146/62 Pulse 72 Temp 36.9 C (98.5 F) (Tympanic) Wt (!) 150.1 kg (331 lb) SpO2 97% BMI 39.25 kg/m Last 4 Encounter Wt Readings: Date: Wt: 04/26/2022 143.8 kg (317 lb) 02/12/2022 147.4 kg (325 lb) 12/11/2021 146.6 kg (323 lb 3.2 oz) 10/14/2021 148.9 kg (328 lb 3.2 oz) PHYSICAL EXAMINATION: General appearance: Well appearing, alert, in no acute distress, well-hydrated, well nourished. Skin: Skin color, texture, turgor normal, no suspicious rashes or lesions Head: Normocephalic, no masses, lesions, tenderness or abnormalities Eyes: Anicteric sclera. Pupils are equally round and reactive to light. Extraocular movements are intact. Ears: External ears normal, canals clear Nose/Sinuses: Nares normal, septum midline, mucosa normal, no drainage or sinus tenderness Oropharynx: Lips, mucosa, and tongue normal, teeth and gums normal, oropharynx normal Neck: Negative findings: no adenopathy Lungs: Lungs clear to auscultation. No wheezing, rhonchi, rales Heart: RRR without murmur, gallop, or rubs. No ectopy Abdomen: Normal abdominal exam, Abdomen soft, non-tender. Bowel sounds normal. No masses, organomegaly Extremities: No deformities, edema, skin discoloration, clubbing or cyanosis. Good capillary refill. Musculoskeletal: No joint swelling, deformity, or tenderness ASSESSMENT/PLAN: 1. Bacterial sinusitis - ICD9: 473.9, 041.9, ICD10: J32.9, B96.89 (primary diagnosis) - Discussed risks and benefits of new medication with the patient. Advised them to call if any side effects or questions. Red flags for re-assessment reviewed with patient in detail. Call if symptoms worsen at all or if not better in one to two weeks Reviewed diagnosis and treatment options in detail. Questions were answered. Patient expressed understanding of treatment plan. - DOXYCYCLINE MONOHYDRATE 100 MG TABLET 2. Adjustment disorder with anxious mood - ICD9: 309.24, ICD10: F43.22 .Discussed risks and benefits of new medication with the patient. Advised them to call if any side effects or questions. - get into psychology - follow up in four weeks. - CONSULT TO [facility] - SERTRALINE 50 MG TABLET 3. Essential hypertension, benign - ICD9: 401.1, ICD10: I10 - fair control - Continue current medication(s) Recheck next visit - Goal of BP <130/80 - CBC + DIFF - COMP METABOLIC PANEL - CK CREATINE KINASE 4. Other pulmonary embolism without acute cor pulmonale, unspecified chronicity (HCC) - ICD9: 415.19, ICD10: I26.99 - on anticoag again 5. Hyperlipidemia, unspecified hyperlipidemia type - ICD9: 272.4, ICD10: E78.5 - to be determined upon return of lab results - Continue current medication. - LIPID PANEL BASIC - VITAMIN D 25 HYDROXY 6. Coronary artery disease involving chinik coronary artery of chinik heart without angina pectoris - ICD9: 414.01, ICD10: I25.10 - per cardiology - VITAMIN D 25 HYDROXY 7. Sleep apnea, unspecified type - ICD9: 780.57, ICD10: G47.30 8. Uncomplicated asthma, unspecified asthma severity, unspecified whether persistent - ICD9: 493.90, ICD10: J45.909 - stable. 9. Atrial flutter, unspecified type (HCC) - ICD9: 427.32, ICD10: I48.92 - continue meds. 10. Myalgia - ICD9: 729.1, ICD10: M79.10 - if fibro, will see if meds help - SED RATE WESTERGREN - C-REACTIVE PROTEIN (CRP) - VITAMIN D 25 HYDROXY 11. Disorder of bone, unspecified - ICD9: 733.90, ICD10: M89.9 - VITAMIN D 25 HYDROXY Chloe Myers MD documented in this encounter [facility] 09-06-2022 Miscellaneous Notes Formatting of this note might be differe nt from the original. Please see [employer] message. Patient has been identified by name and date of : Yes Patient phones for refill(s): Requested Prescriptions Pending Prescriptions Disp Refills losartan (COZAAR) 25 mg tablet 90 tablet 1 Sig: Take 1 tablet by mouth once daily. Date of last office visit in primary care: 11/29/2021 Medication has not been refilled since 08/13/2020, [employer] message sent for reason why. Please advise. Thank you. Beverley Cruz LPN documented in this encounter [facility] 06-22-2022 Miscellaneous Notes Formatting of this note is different fro m the original. Patient phones requesting refills as follows: Requested Prescriptions Pending Prescriptions Disp Refills potassium chloride (K-TAB) 10 mEq tablet 180 tablet 1 Sig: Take 2 tablets by mouth once daily. CRUZITO-11/29/21 Labs-04/29/22 NOV-none med filled 11/16/21 Please review and advise. Fouzia Cope LPN documented in this encounter [facility] 03-12-2022 Miscellaneous Notes Formatting of this note might be differe nt from the original. Last office visit: 11/29/21 F/u scheduled: none Grace Darden Ma documented in this encounter [facility] 02-22-2022 Miscellaneous Notes Formatting of this note might be differe nt from the original. Last office visit: 11/29/21 F/u scheduled: none Grace Darden Ma documented in this encounter [facility] 02-22-2022 Miscellaneous Notes Formatting of this note might be differe nt from the original. Last office visit: 11/29/21 F/u scheduled: none Grace Darden Ma documented in this encounter [facility] 02-12-2022 History of Present illness Narrative Formatting of this note is different fro m the original. Subjective The history is provided by the patient. No supervisor modern languages was used. JOHNATHON Chapa is a 66 year old male who presents today for CC of right ear pain, eye pain, facial pain, 10/10, unable to sleep last night. Patient states 2 weeks ago started all has worsened to point it is unbearable. He has h/o shingles 2 months ago. He is unable to keep eye open due to pain behind eye. He also complains of severe headache. BP 152/80 Pulse 72 Temp 36.8 C (98.2 F) Resp 16 Wt (!) 147.4 kg (325 lb) SpO2 98% BMI 38.54 kg/m Social History Tobacco Use Smoking status: Former Packs/day: 2.00 Years: 5.00 Pack years: 10.00 Types: Cigarettes Quit date: 02/08/1987 Years since quittin.0 Smokeless tobacco: Current Types: Chew Last attempt to quit: 12/03/2017 Tobacco comments: patient smoked for a few months in 2006 Vaping Use Vaping Use: Never used Substance Use Topics Alcohol use: Yes Alcohol/week: 30.0 standard drinks Comment: rare Drug use: No Comment: marijuana in past not since 20 y/o PAST MEDICAL HISTORY Diagnosis Date Abdominal pain, unspecified site Adrenal nodule (HCC) unchanged after >2 years Anxiety state, unspecified Asthma childhood CAD (coronary artery disease) Chronic low back pain Diaphragmatic hernia without mention of obstruction or gangrene Diaphragmatic hernia without mention of obstruction or gangrene Diverticulosis of colon (without mention of hemorrhage) Esophageal reflux Essential hypertension, benign 03/20/2012 Fibromyalgia Hemorrhoids Hypogonadism male treated per urology Impotence of organic origin Lung nodule repeat ct in 01/02 Palpitations Personal history of colonic polyps 2005 polyps Pulmonary embolism (HCC) completed treatment per pulm Recurrent pneumonia 14 times I have confirmed and edited as necessary, the [facility] Review of Systems Constitutional: Negative for chills and fever. HENT: Positive for ear pain and sinus pain. Eyes: Positive for pain. Musculoskeletal: Negative for joint pain and myalgias. Skin: Negative for itching and rash. Neurological: Positive for headaches. All other systems reviewed and are negative. Objective Physical Exam Vitals and nursing note reviewed. HENT: Head: Normocephalic and atraumatic. Right Ear: Tympanic membrane, ear canal and external ear normal. Drainage and swelling present. Left Ear: Tympanic membrane, ear canal and external ear normal. Nose: Mucosal edema, congestion and rhinorrhea present. Right Sinus: Maxillary sinus tenderness and frontal sinus tenderness present. Left Sinus: No maxillary sinus tenderness or frontal sinus tenderness. Mouth/Throat: Pharynx: Uvula midline. No oropharyngeal exudate or posterior oropharyngeal erythema. Tonsils: No tonsillar abscesses. Eyes: Extraocular Movements: Extraocular movements intact. Conjunctiva/sclera: Conjunctivae normal. Comments: Unable to keep right eye open Cardiovascular: Rate and Rhythm: Normal rate and regular rhythm. Heart sounds: Normal heart sounds. Pulmonary: Effort: Pulmonary effort is normal. Breath sounds: Normal breath sounds. No decreased breath sounds, wheezing, rhonchi or rales. Lymphadenopathy: Head: Right side of head: No submental, submandibular, tonsillar or preauricular adenopathy. Left side of head: No submental, submandibular, tonsillar or preauricular adenopathy. Cervical: No cervical adenopathy. Right cervical: No superficial cervical adenopathy. Left cervical: No superficial cervical adenopathy. Skin: General: Skin is warm and dry. Neurological: Mental Status: He is alert and oriented to person, place, and time. Psychiatric: Mood and Affect: Affect normal. ASSESSMENT/PLAN: 1. Facial pain - ICD9: 784.0, ICD10: R51.9 (primary diagnosis) 2. Right ear pain - ICD9: 388.70, ICD10: H92.01 3. Acute right eye pain - ICD9: 379.91, ICD10: H57.11 Due to severity of eye pain, headache, and facial pain, advised to be seen in ED for further treatment and evaulation Diagnosis and treatment plan were discussed and questions were answered to the patient's satisfaction. Pt acknowledged understanding of concepts and follow up plan. Specific signs and symptoms that would indicate the need for higher level of care were discussed in detail warranting prompt ER evaluation. Carolann Lucas APRN.ROSITA documented in this encounter [facility] 12-07-2021 Miscellaneous Notes Pt called and states he had COVID then started with Shingles. He is taking medication for shingles and now he is having problems with his sinuses and starting to have problems with his ears. Pt instructed would need to be seen and evaluated. Pt states he is in [place] and will go to a stat care there. Sandy Velez LPN documented in this encounter [facility] 11-29-2021 Miscellaneous Notes Pt called and is notified of providers message and instructions. Pt voices understanding. Latisha Hassan RN Give me an update on how he is doing on Mon. rx sent in. Pt called in and reports provider told him to call in if he had any change in symptoms. Pt states he has pain to his R ear/nostril/sinus/eye/head. He states he has had Shingles in the past and he feels bumps starting to form on his forehead into his hairline. He states he gets the shingles near his R eye and has scaring to that eye from it. Pt asking if provider would send medication to [facility] for him. Please call if/when sent. documented in this encounter [facility] 11-29-2021 Miscellaneous Notes Patient returned call and went over results, notes from Dr Myers with understanding. TC to pt. LM to call office, ask for triage nurse to get results. Fouzia Cope LPN Let him know his blood clot blood test was ok. Call If any issues or worsening. 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 Patient had a back surgery with a stimulator placed at the end of May. Was on very limited duty until august. Patient has been trying to build up his strenght was helping someone put in a deck and was in bed for two days with body pain. Then wsa getting his boat placed in the water and felt very light headed. Patient said he is feeling it now sitting on the chair. Does suffer from hypertension. Was taking testosterone before the surgery but hasn't taken it since. The history is provided by the patient. No supervisor modern languages was used. Hypertension Review of Systems Constitutional: Negative. Skin: Negative. Objective Physical Exam Constitutional: Appearance: Normal appearance. Cardiovascular: Pulses: Normal pulses. Abdominal: Comments: Abdominal hernia is noted when patient went to lye down. Orthostatic blood pressure was normal. Neurological: Mental Status: He is alert. PAST MEDICAL HISTORY Diagnosis Date Abdominal pain, unspecified site Adrenal nodule (HCC) unchanged after >2 years Anxiety state, unspecified Asthma childhood CAD (coronary artery disease) Chronic low back pain Diaphragmatic hernia without mention of obstruction or gangrene Diaphragmatic hernia without mention of obstruction or gangrene Diverticulosis of colon (without mention of hemorrhage) Esophageal reflux Essential hypertension, benign 03/20/2012 Fibromyalgia Hemorrhoids Hypogonadism male treated per urology Impotence of organic origin Lung nodule repeat ct in 01/02 Palpitations Personal history of colonic polyps 2004 polyps Pulmonary embolism (HCC) completed treatment per pulm Recurrent pneumonia 14 times PAST SURGICAL HISTORY Procedure Laterality Date ADENOIDECTOMY PRIMARY <AGE 14 Adenoidectomy COLONOSCOPY N/A 07/20/2016 MAC COLONOSCOPY 01/24/2019 adenomatous colon polyps, repeat in 3 years COLONOSCOPY FLX DX W/COLLJ SPEC WHEN PFRMD 2005 Colonoscopy COLONOSCOPY FLX DX W/COLLJ SPEC WHEN PFRMD 03/07/11 wnl EGD N/A 07/20/2016 MAC EGD 01/24/2019 gastritis and gastric polyps ESOPHAGOGASTRODUODENOSCOPY TRANSORAL DIAGNOSTIC 05/24/2011 EGD HEMORRHOIDECTOMY XTRNL 2/> COLUMN/GROUP 04/30/15 KNEE SURGERY HX Right 1988 LAPS SURG CHOLECYSTECTOMY W/CHOLANGIOGRAPHY 2004 [facility] - Dr. Hernandes OPEN REPAIR OF ROTATOR CUFF ACUTE Rotator cuff repair PERCUTANEOUS CORONARY INTERVENTION 2006 stent to LAD TONSILLECTOMY PRIMARY/SECONDARY <AGE 14 Tonsillectomy ALLERGIES Sulfa (Sulfonamide Antibiotics) MEDICATIONS atorvastatin (LIPITOR) 20 mg tablet Take 1 tablet by mouth daily at bedtime. For cholesterol. potassium chloride (K-TAB) 10 mEq tablet Take 2 tablets by mouth once daily. allopurinol (ZYLOPRIM) 300 mg tablet Take 1 tablet by mouth once daily. For gout. amLODIPine (NORVASC) 5 mg tablet Take 1 tablet by mouth once daily. losartan (COZAAR) 25 mg tablet Take 1 tablet by mouth once daily. amLODIPine (NORVASC) 5 mg tablet Take 1 tablet by mouth once daily. esomeprazole (NEXIUM) 40 mg capsule Take 1 capsule by mouth twice daily before meals. albuterol HFA (PROAIR HFA) 90 mcg/actuation inhaler Inhale 2 Puffs as instructed every 4 hours as needed (FOR COUGH OR WHEEZE). CPAP Requires replacement machine at same settings. aspirin, enteric coated (ASPIRIN, ENTERIC COATED) 81 mg EC tablet Take 81 mg by mouth once daily. Cholecalciferol, Vitamin D3, (VITAMIN D) 1,000 unit cap Take 1 capsule by mouth once daily. cyanocobalamin (VITAMIN B-12) 1,000 mcg tab Take 1,000 mcg by mouth once daily. buPROPion XL (WELLBUTRIN XL) 150 mg 24 hr tablet Take 1 tablet by mouth once daily. meloxicam (MOBIC) 15 mg tablet Take 1 tablet by mouth once daily. Take with food. oxybutynin XL (DITROPAN XL) 5 mg 24 hr tablet Take 1 tablet by mouth once daily. MULTIVITAMIN TAB Take one(1) tablet daily BY MOUTH. FAMILY HISTORY Problem Relation Age of Onset Hypertension Mother Heart Mother Stroke Mother Allergies Mother Breast Cancer Mother Heart Father of [place] Allergies Father Asthma Daughter Allergies Sister Allergies Brother Allergies Daughter Social History Tobacco Use Smoking status: Former Smoker Packs/day: 2.00 Years: 5.00 Pack years: 10.00 Types: Cigarettes Quit date: 02/08/1987 Years since quittin.7 Smokeless tobacco: Current User Types: Chew Last attempt to quit: 12/03/2017 Tobacco comment: patient smoked for a few months in 2006 Vaping Use Vaping Use: Never used Substance Use Topics Alcohol use: Yes Alcohol/week: 30.0 standard drinks Comment: rare Drug use: No Comment: marijuana in past not since 20 y/o ASSESSMENT/PLAN: 1. Feeling light headed - ICD9: 780.4, ICD10: R42 - VITAMIN D 25 HYDROXY - CBC - COMP METABOLIC PANEL - TSH BLD At this point patient is being sent for lab work. A follow up was scheduled with his PCP office next week. Patient instructed to go to the ER if anything worsens. Patient has a follow up on october 21 with cardiology as well. Patient was instructed to take it easy and not over exert hisself with tasks that are larger like building a deck. Patient was okay with this care plan. Kisha Wen APRN.ROSITA documented in this encounter [facility] 09-10-2021 Instructions Oliva Gutierrez PA-C - 09/10/2021 5:09 PM EDT Follow up in 3 months or as needed. Wear inserts in all shoes. Get custom orthotics as soon as possible. Gentle range of motion and stretching as tolerated. Voltaren gel 3-4 times a day as needed. You can also take Tylenol 500-1000 mg 2-3 times a day as needed for pain, take with food. Keep foot elevated above your heart as much as possible. Recommended to apply ice to affected area for 20 minutes, as often as every hour. Ice should not be applied directly to skin. Advised to apply warm soaks several times daily until resolution: Warm water with 1/2 cup each of Epson salts and white vinegar, gentle range of motion and massage for 10 to 15 minutes. documented in this encounter [facility] 09-10-2021 History of Present illness Narrative SERVICE DATE: September 10, 2021 PCP: Chloe Myers MD Subjective Patient ID: Lazaro is a 65 year old male. Chief Complaint: Patient presents with: Right Foot - New, Pain, Numbness PAIN EVALUATION 09/10/2021 1634 Pain Level: 6 Pain Location: Foot-Right Description: Stabbing;Tingling;Sharp;Aching Duration Units: Years Frequency: Continuous Intervention/Comfort measure: Medication 65 yo male pt seen today for Rt foot pain for a couple of years, no injury, but hx of gout in accessory navicular. Worst pain at accessory navicular and wraps around front of ankle. Worst pain with dorsiflexing and walking. Chronic numbness and tingling, stable from stenosis of lumbar spine. Ankle feels unstable - gives out; but no locking or catching. Prednisone for recent gout flare. Cane for worst pain. No other treatments tried. States he used to have custom orthotics which he stopped using about 2 years ago. Review of Systems Constitutional: Negative. HENT: Negative. Respiratory: Negative. Cardiovascular: Negative. Gastrointestinal: Negative. Endocrine: Negative. Skin: Negative. Neurological: Positive for numbness. Hematological: Negative. Musculoskeletal: Positive for joint swelling. Intermittently, Rt ankle ACTIVE PROBLEM LIST Hyperlipidemia Diaphragmatic Hernia Without Mention of Obstruction Or Gangrene Esophageal Reflux Asbestos Exposure Essential Hypertension, Benign Pulmonary Embolism (Hcc) Hyperhydrosis Disorder Low Testosterone CAD (coronary artery disease) s/p PTCA/STENT. Sleep Apnea Peyronie's Disease Impotence of Organic Origin Asthma Adrenal Nodule (Hcc) Lung Nodule Hypokalemia Polyarthritis Spinal Stenosis of Lumbar Region With Neurogenic Claudication Neural Foraminal Stenosis of Cervical Spine PAST MEDICAL HISTORY Diagnosis Date Abdominal pain, unspecified site Adrenal nodule (HCC) unchanged after >2 years Anxiety state, unspecified Asthma childhood CAD (coronary artery disease) Chronic low back pain Diaphragmatic hernia without mention of obstruction or gangrene Diaphragmatic hernia without mention of obstruction or gangrene Diverticulosis of colon (without mention of hemorrhage) Esophageal reflux Essential hypertension, benign 03/20/2012 Fibromyalgia Hemorrhoids Hypogonadism male treated per urology Impotence of organic origin Lung nodule repeat ct in 01/02 Palpitations Personal history of colonic polyps 2004 polyps Pulmonary embolism (HCC) completed treatment per pulm Recurrent pneumonia 14 times PAST SURGICAL HISTORY Procedure Laterality Date ADENOIDECTOMY PRIMARY <AGE 14 Adenoidectomy COLONOSCOPY N/A 07/20/2016 MAC COLONOSCOPY 01/24/2019 adenomatous colon polyps, repeat in 3 years COLONOSCOPY FLX DX W/COLLJ SPEC WHEN PFRMD 2004 Colonoscopy COLONOSCOPY FLX DX W/COLLJ SPEC WHEN PFRMD 03/07/11 wnl EGD N/A 07/20/2016 MAC EGD 01/24/2019 gastritis and gastric polyps ESOPHAGOGASTRODUODENOSCOPY TRANSORAL DIAGNOSTIC 05/24/2011 EGD HEMORRHOIDECTOMY XTRNL 2/> COLUMN/GROUP 04/30/15 KNEE SURGERY HX Right 1988 LAPS SURG CHOLECYSTECTOMY W/CHOLANGIOGRAPHY 2004 [facility] - Dr. Hernandes OPEN REPAIR OF ROTATOR CUFF ACUTE Rotator cuff repair PERCUTANEOUS CORONARY INTERVENTION 2006 stent to LAD TONSILLECTOMY PRIMARY/SECONDARY <AGE 14 Tonsillectomy FAMILY HISTORY Problem Relation Age of Onset Hypertension Mother Heart Mother Stroke Mother Allergies Mother Breast Cancer Mother Heart Father of CA Allergies Father Asthma Daughter Allergies Sister Allergies Brother Allergies Daughter Social History Tobacco Use Smoking status: Former Smoker Packs/day: 2.00 Years: 5.00 Pack years: 10.00 Types: Cigarettes Quit date: 02/08/1987 Years since quittin.6 Smokeless tobacco: Current User Types: Chew Last attempt to quit: 12/03/2017 Tobacco comment: patient smoked for a few months in 2006 Vaping Use Vaping Use: Never used Substance Use Topics Alcohol use: Yes Alcohol/week: 30.0 standard drinks Comment: rare Drug use: No Comment: marijuana in past not since 20 y/o ALLERGIES Allergen Reactions Sulfa (Sulfonamide * Rash MEDICATIONS: atorvastatin (LIPITOR) 20 mg tablet Take 1 tablet by mouth daily at bedtime. For cholesterol. potassium chloride (K-TAB) 10 mEq tablet Take 2 tablets by mouth once daily. allopurinol (ZYLOPRIM) 300 mg tablet Take 1 tablet by mouth once daily. For gout. amLODIPine (NORVASC) 5 mg tablet Take 1 tablet by mouth once daily. losartan (COZAAR) 25 mg tablet Take 1 tablet by mouth once daily. amLODIPine (NORVASC) 5 mg tablet Take 1 tablet by mouth once daily. buPROPion XL (WELLBUTRIN XL) 150 mg 24 hr tablet Take 1 tablet by mouth once daily. esomeprazole (NEXIUM) 40 mg capsule Take 1 capsule by mouth twice daily before meals. albuterol HFA (PROAIR HFA) 90 mcg/actuation inhaler Inhale 2 Puffs as instructed every 4 hours as needed (FOR COUGH OR WHEEZE). meloxicam (MOBIC) 15 mg tablet Take 1 tablet by mouth once daily. Take with food. CPAP Requires replacement machine at same settings. oxybutynin XL (DITROPAN XL) 5 mg 24 hr tablet Take 1 tablet by mouth once daily. aspirin, enteric coated (ASPIRIN, ENTERIC COATED) 81 mg EC tablet Take 81 mg by mouth once daily. Cholecalciferol, Vitamin D3, (VITAMIN D) 1,000 unit cap Take 1 capsule by mouth once daily. cyanocobalamin (VITAMIN B-12) 1,000 mcg tab Take 1,000 mcg by mouth once daily. MULTIVITAMIN TAB Take one(1) tablet daily BY MOUTH. Allergies, medications, past surgical history, family history and past medical history were reviewed per this encounter. Objective MUSCULOSKELETAL EXAMINATION: Gait: antalgic gait and hesitant to place any weight or pressure to affected area Bony Alignment: Heel valgus and Pes planus Dorsiflexion: Full A/PROM noted with full muscle strength bilaterally Plantar flexion: Full A/PROM noted with full muscle strength bilaterally Inversion: Full A/PROM noted with full muscle strength bilaterally Eversion: Full A/PROM noted with full muscle strength bilaterally Talar Tilt Test: no ligamentous laxity noted bilaterally Anterior Drawer Test: no ligamentous laxity noted bilaterally Calcaneal squeeze: no tenderness Achilles tendon: no pain elicited on examination today, negative Vázquez and no palpable deformity Metatarsal palpation: mild pain when examined over 1st MTP Plantar fascia examination: Palpation along the course of the plantar fascia elicited no pain when examined There is no warmth, erythema, swelling or pain noted on examination of the bilateral calf areas. Tenderness palpation over anterior joint line of ankle, particularly in dorsiflexion, also having tenderness to palpation over accessory navicular Imaging: Final results and radiologist's interpretation, available in the [facility] health record. Images were reviewed with the patient/family members in the office today. My personal interpretation of the performed imaging is: mild degenerative changes in ankle. Right ankle is well-maintained, no fracture identified. No discrete soft tissue swelling. Examination of the right foot demonstrates normal alignment is no fracture. Degenerative changes again identified in the first MTP joint. Elsewhere joint spaces are maintained. Benign reactive changes of the medial aspect of navicular bone unchanged. Assessment/Plan ASSESSMENT Diagnosis (M21.41, M21.42) Pes planus of both feet (primary encounter diagnosis) Plan: CONSULT TO ORTHOTIC/PROSTHETIC (M21.071) Acquired valgus deformity of right ankle Plan: CONSULT TO ORTHOTIC/PROSTHETIC (M19.071) Primary osteoarthritis of right ankle Plan: CONSULT TO ORTHOTIC/PROSTHETIC Office Visit on 09/10/21 CONSULT TO ORTHOTIC/PROSTHETIC PLAN Patient was given power step inserts which immediately helped his discomfort. Patient would like to trial them, but if he does not find that they are helpful he will let me know and we will trial an ASO brace. Follow up in 3 months or as needed. Wear inserts in all shoes. Get custom orthotics as soon as possible. Gentle range of motion and stretching as tolerated. Voltaren gel 3-4 times a day as needed. You can also take Tylenol 500-1000 mg 2-3 times a day as needed for pain, take with food. Keep foot elevated above your heart as much as possible. Recommended to apply ice to affected area for 20 minutes, as often as every hour. Ice should not be applied directly to skin. Advised to apply warm soaks several times daily until resolution: Warm water with 1/2 cup each of Epson salts and white vinegar, gentle range of motion and massage for 10 to 15 minutes. FOLLOW-UP: Return in about 3 months (around 12/11/2021) for in Office Follow Up. SIGNATURE: Oliva Gutierrez PA-C PATIENT NAME: Lazaro Chapa DATE: September 10, 2021 TIME: 4:38 PM Medical Decision Making: Problems: Low: Stable chronic illness Data: Unique source(s) for external note(s) reviewed: 1 Unique test result(s) reviewed: 1 Risk: Low: Low risk from testing/treatment Medical Decision Making Level: 3 - Low documented in this encounter [facility] 09-05-2020 History of Present illness Narrative DATE OF SERVICE: 09/05/2020 SUBJECTIVE: Patient is here with a history of gout and right great toe pain beginning several days after he stopped taking his allopurinol. OBJECTIVE: Right great toe is tender. ASSESSMENT: Gout. PLAN: Prednisone 60 mg daily for up to 5 days. Resume other medications. Abraham Rosa MD TN/[id number] SSI File#: [id number] END OF DOCUMENT / CHANGE LOG FOLLOWS Last Edited By Elec. Signed By Abraham Rosa MD #PAULUTH Abraham Rosa MD #PAULUTH on 09/14/2020 09:32 ET on 09/14/2020 09:32 ET Revision Number - 2 ^^^ Verified/Reviewed by 09/14/20931 KELVIN Macomb [facility], [place] PATIENT NAME: LAZARO CHAPA MEDICAL REC #: [id number] [place], [place] [facility] PHYS[facility]IAN documented in this encounter [facility] 03-19-2020 History of Present illness Narrative DATE OF SERVICE: 03/18/2020 HISTORY OF PRESENT ILLNESS: Patient is a 64-year-old white male who presents to clinic with a rash on his face. It is on the left side up above the eyes, and it barragan and hurts, and he starts feeling the burning and hurting over around his ear, but he has not got any rash there yet. He has had shingles twice; it feels just like when he has had that coming on before, so he comes in to be evaluated and treated. No other complaints. PHYSICAL EXAMINATION: Vital signs are stable. Patient is afebrile. Blood pressure is a little elevated at 160/91; patient is aware. He will keep track and he will follow up with primary care if it continues to be an issue. He is currently on blood pressure medication. HEENT: Within normal limits, except for there is a rash noted up over the right eyebrow; it is somewhat tender to the touch. There are some vesicles just starting to form. No pustules. No other abnormalities of the head and neck are seen. Heart: Regular rate and rhythm without murmur, S3 or S4. Lungs are clear to auscultation bilaterally without rales, rhonchi, or wheezing noted. Abdomen: Positive bowel sounds x4 quadrants. Negative masses or tenderness on palpation. Negative organomegaly. Extremities: Negative clubbing, cyanosis, or edema. Negative deformity. DIAGNOSIS: Shingles. PLAN: The patient was given Solu-Medrol 125 mg IM injection now and then given a prescription for Valtrex 1 g, number 30, one p.o. t.i.d., no refills. Return to clinic if symptoms do not resolve. Eyal Montoya DO /[id number] SSI File#: [id number] END OF DOCUMENT / CHANGE LOG FOLLOWS Last Edited By Elec. Signed By Eyal Montoya DO #Eyal Juan DO #DARRIAN on 03/23/2020 08:06 ET on 03/23/2020 08:06 ET Revision Number - 2 ^^^ Verified/Reviewed by 03/23/20805 DARRIAN [facility] PATIENT NAME: LAZARO CHAPA MEDICAL REC #: [id number] [place], [place] ADMIT DATE: [facility] STATCARE REPORT STATCARE PHYSICIAN documented in this encounter [facility] documented as of this encounter (statuses as of 10/26/2022) [facility] History of Past illness Narrative* Problem Noted Date Resolved Date Pulmonary embolism 10/11/2013 10/25/2022 Shortness of breath 02/08/2007 07/13/2018 Palpitations 09/30/2005 07/13/2018 documented as of this encounter (statuses as of 10/26/2022) [facility] History of Past illness Narrative* Problem Noted Date Resolved Date Pulmonary embolism 10/11/2013 10/25/2022 Shortness of breath 02/08/2007 07/13/2018 Palpitations 09/30/2005 07/13/2018 documented as of this encounter (statuses as of 11/23/2022) [address]25[address]2014 History of Past illness Narrative* Problem Noted Date Resolved Date Pulmonary embolism 10/11/2013 10/25/2022 Shortness of breath 02/08/2007 07/13/2018 Palpitations 09/30/2005 07/13/2018 documented as of this encounter (statuses as of 12/15/2022) [address]25[address]2014 History of Past illness Narrative* Problem Noted Date Resolved Date Pulmonary embolism 10/11/2013 10/25/2022 Shortness of breath 02/08/2007 07/13/2018 Palpitations 09/30/2005 07/13/2018 documented as of this encounter (statuses as of 12/20/2022) [address]25[address]2014 History of Past illness Narrative* Problem Noted Date Resolved Date Pulmonary embolism 10/11/2013 10/25/2022 Shortness of breath 02/08/2007 07/13/2018 Palpitations 09/30/2005 07/13/2018 documented as of this encounter (statuses as of 12/20/2022) [address]25[address]2014 History of Past illness Narrative* Problem Noted Date Resolved Date Pulmonary embolism 10/11/2013 10/25/2022 Shortness of breath 02/08/2007 07/13/2018 Palpitations 09/30/2005 07/13/2018 documented as of this encounter (statuses as of 12/22/2022) [place] [id number] History of Past illness Narrative* Problem Noted Date Diagnosed Date Resolved Date Pulmonary embolism 10/11/2013 3 Shortness of breath 02/08/2007 07/13/19 19 Palpitations 09/30/2005 07/13/2018 documented as of this encounter (statuses as of 01/03/2023) [address]25[address]2014 History of Past illness Narrative* Problem Noted Date Diagnosed Date Resolved Date Pulmonary embolism 10/11/2013 3 Shortness of breath 02/08/2007 07/13/19 19 Palpitations 09/30/2005 07/13/2018 documented as of this encounter (statuses as of 01/04/2023) [address]25[address]2014 History of Past illness Narrative* Problem Noted Date Diagnosed Date Resolved Date Pulmonary embolism 10/11/2013 3 Shortness of breath 02/08/2007 07/13/19 19 Palpitations 09/30/2005 07/13/2018 documented as of this encounter (statuses as of 01/24/2023) [facility] History of Past illness Narrative* Problem Noted Date Diagnosed Date Resolved Date Pulmonary embolism 10/11/2013 3 Shortness of breath 02/08/2007 07/13/19 19 Palpitations 09/30/2005 07/13/2018 documented as of this encounter (statuses as of 06/09/2023) [facility] History of Past illness Narrative* Problem Noted Date Resolved Date Shortness of breath 02/08/2007 07/13/2018 Palpitations 09/30/2005 07/13/2018 documented as of this encounter (statuses as of 09/10/2021) [address]23[address]2007 History of Past illness Narrative* Problem Noted Date Resolved Date Shortness of breath 02/08/2007 07/13/2018 Palpitations 09/30/2005 07/13/2018 documented as of this encounter (statuses as of 10/14/2021) [facility] History of Past illness Narrative* Problem Noted Date Resolved Date Shortness of breath 02/08/2007 07/13/2018 Palpitations 09/30/2005 07/13/2018 documented as of this encounter (statuses as of 11/16/2021) [facility] of Past illness Narrative* Problem Noted Date Resolved Date Shortness of breath 02/08/2007 07/13/2018 Palpitations 09/30/2005 07/13/2018 documented as of this encounter (statuses as of 11/22/2021) [facility] History of Past illness Narrative* Problem Noted Date Resolved Date Shortness of breath 02/08/2007 07/13/2018 Palpitations 09/30/2005 07/13/2018 documented as of this encounter (statuses as of 11/23/2021) [facility] of Past illness Narrative* Problem Noted Date Resolved Date Shortness of breath 02/08/2007 07/13/2018 Palpitations 09/30/2005 07/13/2018 documented as of this encounter (statuses as of 11/29/2021) [address]23[address]2007 History of Past illness Narrative* Problem Noted Date Resolved Date Shortness of breath 02/08/2007 07/13/2018 Palpitations 09/30/2005 07/13/2018 documented as of this encounter (statuses as of 11/29/2021) [address]23[address]2007 History of Past illness Narrative* Problem Noted Date Resolved Date Shortness of breath 02/08/2007 07/13/2018 Palpitations 09/30/2005 07/13/2018 documented as of this encounter (statuses as of 12/14/2021) [address]23[address]2007 History of Past illness Narrative* Problem Noted Date Resolved Date Shortness of breath 02/08/2007 07/13/2018 Palpitations 09/30/2005 07/13/2018 documented as of this encounter (statuses as of 12/16/2021) [address]23[address]2007 History of Past illness Narrative* Problem Noted Date Resolved Date Shortness of breath 02/08/2007 07/13/2018 Palpitations 09/30/2005 07/13/2018 documented as of this encounter (statuses as of 02/12/2022) [address]23[address]2007 History of Past illness Narrative* Problem Noted Date Resolved Date Shortness of breath 02/08/2007 07/13/2018 Palpitations 09/30/2005 07/13/2018 documented as of this encounter (statuses as of 02/22/2022) [address]23[address]2007 History of Past illness Narrative* Problem Noted Date Resolved Date Shortness of breath 02/08/2007 07/13/2018 Palpitations 09/30/2005 07/13/2018 documented as of this encounter (statuses as of 02/22/2022) [address]23[address]2007 History of Past illness Narrative* Problem Noted Date Resolved Date Shortness of breath 02/08/2007 07/13/2018 Palpitations 09/30/2005 07/13/2018 documented as of this encounter (statuses as of 03/12/2022) [address]23[address]2007 History of Past illness Narrative* Problem Noted Date Resolved Date Shortness of breath 02/08/2007 07/13/2018 Palpitations 09/30/2005 07/13/2018 documented as of this encounter (statuses as of 04/21/2022) [facility] Narrative* Problem Noted Date Resolved Date Shortness of breath 02/08/2007 07/13/2018 Palpitations 09/30/2005 07/13/2018 documented as of this encounter (statuses as of 06/24/2022) [facility] of Past [facility] Narrative* Problem Noted Date Resolved Date Shortness of breath 02/08/2007 07/13/2018 Palpitations 09/30/2005 07/13/2018 documented as of this encounter (statuses as of 09/06/2022) [facility] of Past illness Narrative* Problem Noted Date Resolved Date Shortness of breath 02/08/2007 07/13/2018 Palpitations 09/30/2005 07/13/2018 documented as of this encounter (statuses as of 09/23/2022) [facility] History of Past illness Narrative* Problem Noted Date Resolved Date Shortness of breath 02/08/2007 07/13/2018 Palpitations 09/30/2005 07/13/2018 documented as of this encounter (statuses as of 09/23/2022) [facility] Diagnosis Pes planus of both feet- Primary Acquired valgus deformity of right ankle Primary osteoarthritis of right [facility] Feeling light headed- Primary Dizziness and giddiness [facility] Hypokalemia Hypopotassemia [facility] Diagnosis Facial pain- Primary Headache Right ear pain Otalgia, unspecified Acute right eye pain Pain in or around eye [facility] Diagnosis GERD with esophagitis [facility] Diagnosis Hypokalemia Hypopotassemia [facility] Diagnosis Bacterial sinusitis- Primary Unspecified sinusitis (chronic) Adjustment disorder with anxious mood Adjustment disorder with anxiety Essential hypertension, benign Other pulmonary embolism without acute cor pulmonale, unspecified chronicity (HCC) Hyperlipidemia, unspecified hyperlipidemia type Coronary artery disease involving chinik coronary artery of chinik heart without angina pectoris Sleep apnea, unspecified type Uncomplicated asthma, unspecified asthma severity, unspecified whether persistent Atrial flutter, unspecified type (HCC) Myalgia Mylagia and myositis, unspecified Disorder of bone, unspecified documented in this encounter [facility] note* Diagnosis Essential hypertension, benign- Primary History of pulmonary embolism Personal history of pulmonary embolism Coronary artery disease involving chinik coronary artery of chinik heart without angina pectoris Atrial flutter, unspecified type (HCC) Adjustment disorder with anxious mood Adjustment disorder with anxiety documented in this encounter [facility] note* Diagnosis Adjustment disorder with anxious mood Adjustment disorder with anxiety documented in this encounter [facility] note* Diagnosis Urinary tract infection with hematuria, site unspecified- Primary Fever, unspecified fever cause Dehydration documented in this encounter [facility] note* Diagnosis Urinary tract infection without hematuria, site unspecified- Primary Hypokalemia Hypopotassemia Leukocytosis, unspecified type documented in this encounter [facility] note* Diagnosis Hypokalemia Hypopotassemia documented in this encounter [facility] note* Diagnosis Anxiety with depression- Primary documented in this encounter [facility] note* Diagnosis Essential hypertension, benign- Primary Recurrent UTI (urinary tract infection) Urinary tract infection, site not specified Adjustment disorder with anxious mood Adjustment disorder with anxiety Fatigue, unspecified type Atrial flutter, unspecified type (HCC) Coronary artery disease involving chinik coronary artery of chinik heart without angina pectoris documented in this encounter [facility] note* Diagnosis Hypokalemia Hypopotassemia documented in this encounter [facility] Family History No Family History Records FoundNo Family History Records FoundNo Family History Records FoundNo Family History Records FoundNo Family History Records FoundNo Family History Records Found Advance Directives No Advanced Directives Records FoundDocuments on File Type Date 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 Advance Directive(s) 07/20/2016 7:44 AM Advance Directive(s) 05/10/2016 5:01 PM Advance Directive(s) 06/05/2012 1:03 PM Documents on File Type Date 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 Advance Directive(s) 06/05/2012 1:03 PM Health Concerns Infection Onset Date Last Indicated Resolved Time COVID-19 Rule-Out 05/18/2020 05/18/2020 05/18/2020 11:53 PM EST COVID-19 Rule-Out 08/12/2020 08/12/2020 08/13/2020 4:50 AM EST COVID-19 Rule-Out 05/20/2021 05/20/2021 05/21/2021 1:29 AM EST Infection Onset Date Last Indicated Resolved Time COVID-19 Rule-Out 05/20/2021 05/20/2021 05/21/2021 1:29 AM EST Additional Source Comments (unrecognized sect ion and content) No Status Records FoundNo Status Records FoundNo Status Records FoundNo Status Records FoundNo Status Records FoundNo Status Records Found INFORMATION SOURCE (unrecogn ized section and content) DATE CREATED AUTHOR AUTHOR'S ORGANIZ ATION 11/16/[address] [facility] DATE CREATED AUTHOR AUTHOR'S ORGANIZ ATION 08/29/2019 [facility] ([place]) DATE CREATED AUTHOR AUTHOR'S ORGANIZ ATION 08/07/2021 [facility] DATE CREATED AUTHOR AUTHOR'S ORGANIZ ATION 12/05/2022 [facility] DATE CREATED AUTHOR AUTHOR'S ORGANIZ ATION 07/11/2023 [facility] Source Comments (unrecognize d section and content) In the event this informatio n is protected by the Federal Confidentiality of Alcohol and Drug Abuse Patient Records regulations: The Federal rules restrict any use of the information to criminally investigate or prosecute any alcohol or drug abuse patient.[facility] event this information is protected by the Federal Confidentiality of Alcohol and Drug Abuse Patient Records regulations: The Federal rules restrict any use of the information to criminally investigate or prosecute any alcohol or drug abuse patient.[facility] the event this information is protected by the Federal Confidentiality of Alcohol and Drug Abuse Patient Records regulations: The Federal rules restrict any use of the information to criminally investigate or prosecute any alcohol or drug abuse patient.[facility] the event this information is protected by the Federal Confidentiality of Alcohol and Drug Abuse Patient Records regulations: The Federal rules restrict any use of the information to criminally investigate or prosecute any alcohol or drug abuse patient.[facility] the event this information is protected by the Federal Confidentiality of Alcohol and Drug Abuse Patient Records regulations: The Federal rules restrict any use of the information to criminally investigate or prosecute any alcohol or drug abuse patient.[facility] the event this information is protected by the Federal Confidentiality of Alcohol and Drug Abuse Patient Records regulations: The Federal rules restrict any use of the information to criminally investigate or prosecute any alcohol or drug abuse patient.[facility] the event this information is protected by the Federal Confidentiality of Alcohol and Drug Abuse Patient Records regulations: The Federal rules restrict any use of the information to criminally investigate or prosecute any alcohol or drug abuse patient.[facility] the event this information is protected by the Federal Confidentiality of Alcohol and Drug Abuse Patient Records regulations: The Federal rules restrict any use of the information to criminally investigate or prosecute any alcohol or drug abuse patient.[facility] the event this information is protected by the Federal Confidentiality of Alcohol and Drug Abuse Patient Records regulations: The Federal rules restrict any use of the information to criminally investigate or prosecute any alcohol or drug abuse patient.[facility] the event this information is protected by the Federal Confidentiality of Alcohol and Drug Abuse Patient Records regulations: The Federal rules restrict any use of the information to criminally investigate or prosecute any alcohol or drug abuse patient.[facility] the event this information is protected by the Federal Confidentiality of Alcohol and Drug Abuse Patient Records regulations: The Federal rules restrict any use of the information to criminally investigate or prosecute any alcohol or drug abuse patient.[facility] the event this information is protected by the Federal Confidentiality of Alcohol and Drug Abuse Patient Records regulations: The Federal rules restrict any use of the information to criminally investigate or prosecute any alcohol or drug abuse patient.[facility] the event this information is protected by the Federal Confidentiality of Alcohol and Drug Abuse Patient Records regulations: The Federal rules restrict any use of the information to criminally investigate or prosecute any alcohol or drug abuse patient.[facility] HospitalIn the event this information is protected by the Federal Confidentiality of Alcohol and Drug Abuse Patient Records regulations: The Federal rules restrict any use of the information to criminally investigate or prosecute any alcohol or drug abuse patient.[facility] HospitalIn the event this information is protected by the Federal Confidentiality of Alcohol and Drug Abuse Patient Records regulations: The Federal rules restrict any use of the information to criminally investigate or prosecute any alcohol or drug abuse patient.[facility] HospitalIn the event this information is protected by the Federal Confidentiality of Alcohol and Drug Abuse Patient Records regulations: The Federal rules restrict any use of the information to criminally investigate or prosecute any alcohol or drug abuse patient.[facility] HospitalIn the event this information is protected by the Federal Confidentiality of Alcohol and Drug Abuse Patient Records regulations: The Federal rules restrict any use of the information to criminally investigate or prosecute any alcohol or drug abuse patient.[facility] HospitalIn the event this information is protected by the Federal Confidentiality of Alcohol and Drug Abuse Patient Records regulations: The Federal rules restrict any use of the information to criminally investigate or prosecute any alcohol or drug abuse patient.[facility] HospitalIn the event this information is protected by the Federal Confidentiality of Alcohol and Drug Abuse Patient Records regulations: The Federal rules restrict any use of the information to criminally investigate or prosecute any alcohol or drug abuse patient.[facility] HospitalIn the event this information is protected by the Federal Confidentiality of Alcohol and Drug Abuse Patient Records regulations: The Federal rules restrict any use of the information to criminally investigate or prosecute any alcohol or drug abuse patient.[facility] HospitalIn the event this information is protected by the Federal Confidentiality of Alcohol and Drug Abuse Patient Records regulations: The Federal rules restrict any use of the information to criminally investigate or prosecute any alcohol or drug abuse patient.[facility] HospitalIn the event this information is protected by the Federal Confidentiality of Alcohol and Drug Abuse Patient Records regulations: The Federal rules restrict any use of the information to criminally investigate or prosecute any alcohol or drug abuse patient.[facility] HospitalIn the event this information is protected by the Federal Confidentiality of Alcohol and Drug Abuse Patient Records regulations: The Federal rules restrict any use of the information to criminally investigate or prosecute any alcohol or drug abuse patient.[facility] HospitalIn the event this information is protected by the Federal Confidentiality of Alcohol and Drug Abuse Patient Records regulations: The Federal rules restrict any use of the information to criminally investigate or prosecute any alcohol or drug abuse patient.[facility] HospitalIn the event this information is protected by the Federal Confidentiality of Alcohol and Drug Abuse Patient Records regulations: The Federal rules restrict any use of the information to criminally investigate or prosecute any alcohol or drug abuse patient.[facility] HospitalIn the event this information is protected by the Federal Confidentiality of Alcohol and Drug Abuse Patient Records regulations: The Federal rules restrict any use of the information to criminally investigate or prosecute any alcohol or drug abuse patient.[facility] HospitalIn the event this information is protected by the Federal Confidentiality of Alcohol and Drug Abuse Patient Records regulations: The Federal rules restrict any use of the information to criminally investigate or prosecute any alcohol or drug abuse patient.[facility] HospitalIn the event this information is protected by the Federal Confidentiality of Alcohol and Drug Abuse Patient Records regulations: The Federal rules restrict any use of the information to criminally investigate or prosecute any alcohol or drug abuse patient.[facility] HospitalIn the event this information is protected by the Federal Confidentiality of Alcohol and Drug Abuse Patient Records regulations: The Federal rules restrict any use of the information to criminally investigate or prosecute any alcohol or drug abuse patient.[facility] HospitalIn the event this information is protected by the Federal Confidentiality of Alcohol and Drug Abuse Patient Records regulations: The Federal rules restrict any use of the information to criminally investigate or prosecute any alcohol or drug abuse patient.[facility] Reason for Visit (unrecogniz ed section and content) Reason Comments Blood Pressure lightheaded Reason Comments Results Reason Comments Patient Update Reason Comments ear problems/sinuses Reason Comments Derm Problem ? shingles right neeraj e of face x 2 weeks Reason Onset Date Comments Refill Request 02/22/2022 Reason Onset Date Comments Refill Request 03/12/2022 Reason Onset Date Comments Refill Request 06/22/2022 Reason Onset Date Comments Refill Request 09/06/2022 Reason Comments Sinus Problem Reason Comments Consult Patient Outreach [facility] W Reason Comments Follow Up Reason Comments Medication Problem Reason Comments UTI Reason Comments Hospital F/U Reason Comments ER F/U Reason Onset Date Comments Refill Request 12/22/2022 Reason Comments bh consult Reason Onset Date Comments Refill Request 06/08/2023 Care Teams (unrecognized sec tion and content) Driller'S Assistant Relationship Specialty Start Date End Date Chloe Myers MD [address] [place], [place] [id number] PCP - General Family Practice 04/13/12 Driller'S Assistant Relationship Specialty Start Date End Date Chloe Myers MD [address] [place], [place] [id number] PCP - General Family Practice 04/13/12 Driller'S Assistant Relationship Specialty Start Date End Date Chloe Myers MD [address] [place], [place] [id number] PCP - General Family Practice 04/13/12 Driller'S Assistant Relationship Specialty Start Date End Date Chloe Myers MD [address] [facility] [place] [address] PCP - General Family Practice 04/13/12 Driller'S Assistant Relationship Specialty Start Date End Date Chloe Myers MD [address] [place] [address] PCP - General Family Practice 04/13/12 Driller'S Assistant Relationship Specialty Start Date End Date Chloe Myers MD [address] [place] [address] PCP - General Family Practice 04/13/12 Driller'S Assistant Relationship Specialty Start Date End Date Chloe Myers MD [address] [place] [address] PCP - General Family Practice 04/13/12 Driller'S Assistant Relationship Specialty Start Date End Date Chloe Myers MD [address] [place] [address] PCP - General Family Practice 04/13/12 Driller'S Assistant Relationship Specialty Start Date End Date Chloe Myers MD [address] [place] [address] PCP - General Family Practice 04/13/12 Driller'S Assistant Relationship Specialty Start Date End Date Chloe Myers MD [address] [place] [address] PCP - General Family Practice 04/13/12 Driller'S Assistant Relationship Specialty Start Date End Date Chloe Myers MD [address] [place] [address] PCP - General Family Medicine 04/13/12 Driller'S Assistant Relationship Specialty Start Date End Date Chloe Myers MD [address] [place] [address] PCP - General Family Medicine 04/13/12 Driller'S Assistant Relationship Specialty Start Date End Date Chloe Myers MD [address] [place] [address] PCP - General Family Medicine 04/13/12 Driller'S Assistant Relationship Specialty Start Date End Date Chloe Myers MD [address] [place] [address] PCP - General Family Medicine 04/13/12 Driller'S Assistant Relationship Specialty Start Date End Date Chloe Myers MD [address] [place] [address] PCP - General Family Medicine 04/13/12 Driller'S Assistant Relationship Specialty Start Date End Date Chloe Myers MD [address] [place] [address] PCP - General Family Medicine 04/13/12 Driller'S Assistant Relationship Specialty Start Date End Date Chloe Myers MD [address] [place] [address] PCP - General Family Medicine 04/13/12 Driller'S Assistant Relationship Specialty Start Date End Date Chloe Myers MD [address] [place] [address] PCP - General Family Medicine 04/13/12 Driller'S Assistant Relationship Specialty Start Date End Date Chloe Myers MD [address] [place] [address] PCP - General Family Medicine 04/13/12 Driller'S Assistant Relationship Specialty Start Date End Date Chloe Myers MD [address] [place] [address] PCP - General Family Medicine 04/13/12 Driller'S Assistant Relationship Specialty Start Date End Date Chloe Myers MD [address] [place] [address] PCP - General Family Medicine 04/13/12 Driller'S Assistant Relationship Specialty Start Date End Date Chloe Myers MD [address] [place], [place] [id number] PCP - General Family Medicine 04/13/12 Driller'S Assistant Relationship Specialty Start Date End Date Chloe Myers MD [address] [place], [place] [id number] PCP - General Family Medicine 04/13/12 Driller'S Assistant Relationship Specialty Start Date End Date Chloe Myers MD [address] [place], [place] [address] PCP - General Family [facility] 04/13/12 Driller'S Assistant Relationship Specialty Start Date End Date Chloe Myers MD [address] [place], [place] [id number] PCP - General Family Medicine 04/13/12 FOR RECORDS PERTAINING TO PATIENTS WHO ARE OR HAVE BEEN ENROLLED IN A CHEMICAL DEPENDENCY/SUBSTANCEABUSE PROGRAM, SOME INFORMATION MAY BE OMITTED. This clinical summary was aggregated from multiple sources. Caution should be exercised in using it in the provision of clinical care. This summary normalizes information from multiple sources, and as a consequence, information in this document may materially change the coding, format and clinical context of patient data. In addition, data may be omitted in some cases. CLINICAL DECISIONS SHOULD BE BASED ON THE PRIMARY CLINICAL RECORDS. [facility]. provides no warranty or guarantee of the accuracy or completeness of information in this document.
[2023-07-13 08:55] LABS: ALB/GLOB Ratio 1.2 RATIO (0.9-2.4); AST(SGOT) 32 U/L (15-37); Alanine Aminotransfer ALT/SGPT 59 U/L (16-61); Albumin, Serum 4.3 g/dL (3.2-5.0); Alkaline Phosphatase 76 U/L (45-117); Anion Gap 1 (5-15); BUN 18 mg/dL (7-18); BUN/Creat Ratio 15.3 RATIO (10-20); Bilirubin, Direct 0.33 mg/dL (0.00-0.30); Calcium,Total 9.5 mg/dL (8.5-10.1); Chloride 108 mmol/L (98-107); Cholesterol 77 mg/dL (200); Creatinine, Serum 1.18 mg/dL (0.70-1.30); EST Glomerular Filtration Rate 66 mL/min (>60); Est Glom Filt Rate - Afr Amer 80 mL/min (>60); Globulin 3.6 g/dL (2.2-4.2); Glucose 116 mg/dL (74-106); High Density Lipoprotein 30 mg/dL; Protein, Total 7.9 g/dL (6.4-8.2); Sodium Level 137 mmol/L (136-145); Triglycerides 90 mg/dL; Very Low Density Lipoprotein 18 mg/dL (5-40)
== END | disposition home or self-care (01) ==
LOC: LAB 07:56
PROVIDERS: Internal Medicine Cardiovascular Disease; PCP Family Medicine; Referring Provider Nurse Practitioner Family; Visit Provider Nurse Practitioner Family
DX: Z01.818 Encounter for other preprocedural examination (principal); I10 Essential (primary) hypertension; E78.00 Pure hypercholesterolemia, unspecified
CPT/HCPCS: 36415; 80053; 80061; 82248; 85025

== ENCOUNTER → 2023-10-18 | Outpatient (CLI) | payer MEDICARE, BC, SELFPAY ==
[2023-10-18 09:47] LABS: Hematocrit 44.4 % (40-54); Hemoglobin 15.3 g/dL (13.0-16.5); Mean Corp Hgb Conc 34.5 g/dL (32-36); Mean Corpuscular Hgb 29.9 pg (27.0-32.0); Mean Corpuscular Volume 86.7 fL (80-94); Mean Platelet Vol. 11.6 fl (6.2-12.0); Platelet Count 130 K/mm3 (150-450); RBC Distribution Width SD 44.5 fl (35.1-43.9); Red Blood Count 5.12 M/mm3 (4.6-6.2); White Blood Count 4.6 K/mm3 (4.4-11.0)
[2023-10-18 10:19] LABS: ALB/GLOB Ratio 1.2 RATIO (0.9-2.4); AST(SGOT) 19 U/L (15-37); Alanine Aminotransfer ALT/SGPT 33 U/L (16-61); Alkaline Phosphatase 78 U/L (45-117); Anion Gap 5 (5-15); BUN 15 mg/dL (7-18); BUN/Creat Ratio 15.8 RATIO (10-20); Calcium,Total 8.7 mg/dL (8.5-10.1); Chloride 110 mmol/L (98-107); Cholesterol 75 mg/dL (200); Creatinine, Serum 0.95 mg/dL (0.70-1.30); EST Glomerular Filtration Rate 84 mL/min (>60); Est Glom Filt Rate - Afr Amer 102 mL/min (>60); Globulin 3.2 g/dL (2.2-4.2); Glucose 119 mg/dL (74-106); High Density Lipoprotein 28 mg/dL; Magnesium 1.9 mg/dL (1.6-2.6); Potassium 3.6 mmol/L (3.5-5.1); Protein, Total 7.2 g/dL (6.4-8.2); Sodium Level 141 mmol/L (136-145); Triglycerides 147 mg/dL; Very Low Density Lipoprotein 29 mg/dL (5-40)
== END | disposition home or self-care (01) ==
PROVIDERS: PCP Family Medicine; Referring Provider Internal Medicine Cardiovascular Disease; Visit Provider Internal Medicine Cardiovascular Disease
DX: R42 Dizziness and giddiness (principal); I48.92 Unspecified atrial flutter; R06.00 Dyspnea, unspecified; R55 Syncope and collapse; I25.10 Atherosclerotic heart disease of native coronary artery without angina pectoris; R53.83 Other fatigue; E78.5 Hyperlipidemia, unspecified; D69.6 Thrombocytopenia, unspecified
CPT/HCPCS: 36415; 80053; 80061; 83735; 85027

== ENCOUNTER → 2023-11-09 | Outpatient (CLI) | payer MEDICARE, BC, SELFPAY | END | disposition home or self-care (01) | LOC: PSN 06:40 | PROVIDERS: PCP Family Medicine; Referring Provider Internal Medicine Cardiovascular Disease; Visit Provider Internal Medicine Cardiovascular Disease | DX: R55 Syncope and collapse (principal); I48.92 Unspecified atrial flutter; I44.0 Atrioventricular block, first degree; R53.83 Other fatigue; R06.00 Dyspnea, unspecified | CPT/HCPCS: 93225; 93226 ==

== ENCOUNTER → 2023-12-01 | Outpatient (CLI) | payer MEDICARE, BC, SELFPAY ==
--- NOTE | 2023-12-01 06:41 | ECHOD_ITS ---
Reason For Study: ASHD/CAD Procedure This was a 2D Doppler, Color Flow transthoracic echocardiogram. Exam performed in department. Left Ventricle Normal LV size. Moderate concentric left ventricular hypertrophy. The left ventricular ejection fraction is 65 %. Diastolic function is indeterminate. Right Ventricle Normal right ventricle. Atria There is severe biatrial dilatation. Mitral Valve Mild (1+) mitral valve insufficiency. Tricuspid Valve Trivial tricuspid valve insufficiency. Unable to estimate RV systolic pressure due to insufficient tricuspid regurgitant envelope. Aortic Valve Trisinus/trileaflet aortic valve. Pulmonic Valve The pulmonic valve is not well visualized. Great Vessels Mildly dilated aortic root. Pericardium/Pleural No pericardial effusion. MMode/2D Measurements & Calculations LVIDd: 5.2 cm IVSd: 1.6 cm Ao root diam: 3.7 cm LVIDs: 3.2 cm LVPWd: 1.3 cm LA dimension: 5.3 cm RVDd: 4.2 cm FS: 37.6 % LAV(MOD-bp): 99.3 ml LVAd ap4: 34.2 cm2 SV(MOD-sp4): 50.8 ml LAV(MOD-bp) Indexed: 36.4 ml/m2 LVLd ap4: 9.2 cm LAV(MOD-sp2): 94.1 ml EDV(MOD-sp4): 107.3 ml LAV(MOD-sp4): 95.1 ml EDV(sp4-el): 108.2 ml LVAs ap4: 22.7 cm2 LVLs ap4: 8.2 cm ESV(MOD-sp4): 56.5 ml ESV(sp4-el): 53.6 ml EF(MOD-sp4): 47.4 % EF(sp4-el): 50.5 % SV(sp4-el): 54.6 ml LA A4 area: 26.4 cm2 RA A4 area: 26.3 cm2 TAPSE: 2.0 cm Time Measurements MV dec time: 0.27 sec Doppler Measurements & Calculations MV E max keaton: 60.0 cm/sec Lat Peak E' Keaton: 7.6 cm/sec Med Peak E' Keaton: 6.3 cm/sec MV A max keaton: 68.9 cm/sec E/E' lat: 7.9 E/E' med: 9.6 MV E/A: 0.87 MV V2 max: 92.8 cm/sec MV P1/2t max keaton: 83.0 cm/sec Ao V2 max: 109.2 cm/sec MV max P.4 mmHg MV P1/2t: 88.5 msec Ao max P.8 mmHg MV V2 mean: 50.5 cm/sec MV dec slope: 274.6 cm/sec2 Ao V2 mean: 77.5 cm/sec MV mean P.2 mmHg Ao mean P.8 mmHg MV V2 VTI: 26.9 cm MVA(P1/2t): 2.5 cm2 Ao V2 VTI: 26.3 cm AV (velocity ratio): 0.83 LV V1 max: 96.4 cm/sec PA V2 max: 112.2 cm/sec LV V1 max P.7 mmHg LV V1 mean P.1 mmHg LV V1 mean: 67.1 cm/sec LV V1 VTI: 21.8 cm ECHO/Echo Complete Interpretation Summary Moderate concentric left ventricular hypertrophy. The left ventricular ejection fraction is 65 %. Diastolic function is indeterminate. There is severe biatrial dilatation. Mild (1+) mitral valve insufficiency. Mildly dilated aortic root. Ordering Physician: Flores Glover Performed By: Ming Ruiz and Student
--- NOTE | 2023-12-05 12:48 | STRESSREP_ITS ---
Stress Test Report Date: 12/01/2023 Procedure: Pharmacologic stress nuclear imaging study Indications: Coronary artery disease Consent: Per the patient Procedure: The patient underwent pharmacologic (Regadenoson 0.4mg ) evaluation with a peak heart rate of 80 beats per minute (51%predicted maximal heart rate) and a peak blood pressure of 148/80 mmHg. The baseline ECG demonstrated sinus rhythm with first-degree AV block. The peak pharmacologic ECG demonstrated no ischemic changes. PVCs noted at rest as well as postinfusion. There was no complaint of chest discomfort during pharmacologic infusion or recovery. The patient was injected with 15.0 millicuries of technetium 99m Cardiolite and subsequently rest SPECT Cardiolite nuclear imaging was obtained in the horizontal long, vertical long, and short axis views. The patient underwent pharmacologic (Regadenoson) evaluation. The patient was injected with 44.8 millicuries of technetium 99m Cardiolite and subsequently stress SPECT Cardiolite nuclear imaging was obtained in the horizontal long, vertical long, and short axis views. A gated Cardiolite study at peak stress was obtained. The examination was stopped secondary to completion of protocol. Rest and stress SPECT Cardiolite nuclear imaging status post realignment, normalization, and attenuation correction demonstrate no fixed or reversible perfusion defects. There is end systolic thickening and brightening. The gated Cardiolite study demonstrates myocardial thickening and inward wall motion. The reported LVEF is 61%. Impression: 1. Pharmacologic (Regadenoson) evaluation 2. Peak pharmacologic ECG with no ischemic changes. 3. PVCs noted at baseline as well as during infusion and in recovery. 5. Rest and stress SPECT Cardiolite nuclear imaging demonstrate relative uniform tracer uptake and myocardial perfusion appearing within normal limits. 6. The gated Cardiolite study reports an LVEF of 61%. This note was generated with [employer] software. It may contain incorrect words, spelling, and punctuation that were not noted in checking the note before signing.
== END | disposition home or self-care (01) ==
LOC: CVS 06:40
PROVIDERS: PCP Family Medicine; Referring Provider Internal Medicine Cardiovascular Disease; Visit Provider Internal Medicine Cardiovascular Disease
DX: I25.10 Atherosclerotic heart disease of native coronary artery without angina pectoris (principal); I48.92 Unspecified atrial flutter; R06.09 Other forms of dyspnea; R55 Syncope and collapse; E78.5 Hyperlipidemia, unspecified; R53.83 Other fatigue; Z95.5 Presence of coronary angioplasty implant and graft; G47.33 Obstructive sleep apnea (adult) (pediatric); I44.0 Atrioventricular block, first degree
CPT/HCPCS: 78452; 93017; 93306; A9500; A4216; J2785

== ENCOUNTER → 2023-12-13 | Outpatient (CLI) | payer MEDICARE, BC, SELFPAY ==
--- NOTE | 2023-12-13 12:19 | CT_ITS ---
HISTORY: BACK PAIN. TECHNIQUE: CT angiogram of the chest was performed after the intravenous administration of 100 mL Isovue-370. Post-processing of the angiographic images was performed with multiplanar reformation and 3D reconstruction. Individualized dose optimization techniques were used for this CT. 1039 images. COMPARISON: 01/06/2016. FINDINGS: CENTRAL AIRWAYS: Patent. LUNGS: Very mild apical blebs. Motion artifact without acute alveolar consolidation. Stable 3 mm right lower lobe fissural nodules. PLEURA: No pneumothorax or significant pleural effusion. HEART/PERICARDIUM: Heart within normal limits in size. No pericardial effusion. PULMONARY ARTERIES: No filling defect. AORTA/VESSELS: No thoracic aortic aneurysm or dissection flap. MEDIASTINUM/GRETEL: No pathologically enlarged lymph nodes. OSSEOUS STRUCTURES: Degenerative change with thoracic spinal electrode noted. Multiple small sclerotic foci in the thoracic spine again seen, likely bone islands absent a history of risk factors for osteoblastic metastases. UPPER ABDOMEN: Small hepatic and renal cysts. Stable small left adrenal nodule. CT/CTA Chest W/WO Contrast IMPRESSION: No evidence of pulmonary embolism. Electronically Signed: Grace Morrison MD at 14:10 EDT ,
[2023-12-13 13:48] LABS: CREATININE FINGERSTICK 1.1 mg/dL (0.70-1.30); EGFR FINGERSTICK > 60.0000 mL/min (>60)
== END | disposition home or self-care (01) ==
PROVIDERS: PCP Family Medicine; Referring Provider Registered Nurse; Visit Provider Registered Nurse
DX: Z01.812 Encounter for preprocedural laboratory examination (principal); R07.1 Chest pain on breathing
CPT/HCPCS: 71275; Q9967

== ENCOUNTER → 2024-06-04 | Outpatient (CLI) | payer MEDICARE, BC, SELFPAY | END | disposition home or self-care (01) | LOC: LAB 14:02 | PROVIDERS: PCP Family Medicine; Referring Provider Nurse Practitioner; Visit Provider Nurse Practitioner | DX: E29.1 Testicular hypofunction (principal); Z12.5 Encounter for screening for malignant neoplasm of prostate | CPT/HCPCS: 36415; 84153; 84403; G0103 ==

== ENCOUNTER 2024-10-28 09:35 | Emergency (ER) | payer MEDICARE, BC, SELFPAY ==
[2024-10-28 09:36] VITALS: BP 156/76; PULSE 76; RESP 18; TEMP 36.1; O2SAT 99; BMI 40.4
[2024-10-28 10:55] LABS: Bacteria 0 SEEN /hpf (None Seen); Mucous, Urine 0 SEEN /hpf (<or=2+); Red Blood Cells-Urine 0 SEEN /hpf (0-5); White Blood Cells 0 SEEN /hpf (0-5)
--- NOTE | 2024-10-28 10:58 | ED.VIS.GI ---
HPI HPI - GI History of Present Illness Chief Complaint: GI Bleed Informant: patient Narrative Narrative: 69-year-old male presenting to the emergency room with rectal bleeding and fatigue. Patient states that is not uncommon for him to have bright red blood per rectum as he has a history of hemorrhoids and anal fissures. He states that last evening he had a large amount of blood in the toilet as well as abdominal cramping. He states he feels generally fatigued. He notes the stool itself was formed and brown in nature. He is able to pull up recent blood work from September 17 that shows a hemoglobin of 15.6 and a creatinine of 1. Patient states that he called his primary care doctor's office who advised him to come to the emergency. He notes he had a colonoscopy in the past at [facility]. He states he has a history of diverticulosis. He is not currently on blood thinners does take baby aspirin. [facility] Medical History History of cardioversion First degree heart block Dyslipidemia Morbid obesity with BMI of 40.0-44.9, adult Paroxysmal atrial flutter Coronary artery disease Thrombocytopenia Failure of outpatient treatment Complicated urinary tract infection Dyspnea Atrial flutter History of shingles Fatigue History of pulmonary embolism Former tobacco use History of TIA (transient ischemic attack) Chest pain Rectal bleeding Pure hypercholesterolemia Acute pyelonephritis Prostate enlargement UTI (urinary tract infection) Dyspnea on exertion Claudication Fibromyalgia BPH (benign prostatic hyperplasia) GERD (gastroesophageal reflux disease) Essential hypertension Atherosclerotic heart disease of [place] coronary artery without angina pectoris Confusion Unstable angina HTN (hypertension) Abnormal myocardial perfusion study H/O percutaneous transluminal coronary angioplasty Abnormal stress test DEENA (obstructive sleep apnea) Pulmonary embolism Obesity Testosterone deficiency Home Medications ?Medication ?Instructions ?Recorded ?Last Taken ?Type albuterol sulfate 90 mcg/actuation 1 - 2 puff inhalation Q6H PRN 07/08/19 02/08/20 History aerosol inhaler Asthma testosterone 4 pump transdermal DAILY low 11/23/21 10/28/24 History testosterone tamsulosin 0.4 mg capsule 0.4 mg PO DAILY prostate 04/29/22 10/28/24 History aspirin 81 mg tablet,delayed 81 mg PO DAILY 07/05/23 Unknown History release amlodipine 5 mg tablet 10 mg (2 x 5 mg) PO DAILY htn #90 04/08/24 10/28/24 Rx tabs atomoxetine 40 mg capsule 40 mg PO DAILY 10/28/24 10/28/24 History esomeprazole magnesium 40 mg 40 mg PO BID 10/28/24 10/28/24 History capsule,delayed release finasteride 5 mg tablet 5 mg PO DAILY 10/28/24 10/28/24 History losartan 100 mg tablet 100 mg PO DAILY 10/28/24 10/28/24 History multivitamin (Daily Multi-Vitamin 1 tab PO DAILY 10/28/24 10/28/24 History tablet) oxycodone-acetaminophen 5 mg-325 1 tab PO DAILY PRN pain 10/28/24 Unknown History mg tablet potassium chloride 10 mEq 20 meq PO DAILY 10/28/24 10/28/24 History tablet,extended release Allergy/AdvReac Type Severity Reaction Status Date / Time Sulfa (Sulfonamide Allergy Unknown Verified 08/16/24 10:34 Antibiotics) Family History Mother CAD (coronary artery disease) Hypertension Hx of CABG Father Hypertension Myocardial infarction Grandfather Myocardial infarction paternal Grandmother Cancer pancreatic CA Grandfather CAD (coronary artery disease) Surgical History Spinal cord stimulator status (~05/2021) History of back surgery History of transurethral resection of prostate History of arthroscopy of right knee History of laparoscopic cholecystectomy Presence of coronary angioplasty implant and graft (~08/2012) Presence of stent in coronary artery (~08/2012) History of left heart catheterization (LHC) History of PTCA (~08/2012) History of tonsillectomy and adenoidectomy History of repair of rotator cuff Social History Smoking Status: Former smoker quit date: 06/19/94 pack-years: 42 how long ago did patient quit smokin second hand exposure: No alcohol intake: current alcohol intake frequency: holidays/special occasions only Alcohol type: beer substance use type: does not use caffeine: Yes Type: carbonated beverages, coffee and tea what type of physical activity do you participate in: none ROS ROS ED Constitutional Constitutional ED: Denies chills, fever(s) or weight loss Eyes Eyes: Denies change in vision or diplopia ENT ENT ED: Denies ear pain, rhinorrhea or sore throat Cardiovascular Cardiovascular: Denies chest pain, orthopnea, palpitations or racing heartbeat Respiratory/Chest Respiratory/Chest: Denies cough, dyspnea or orthopnea Gastrointestinal Gastrointestinal: Reports other Details: Bright red blood per rectum abdominal cramping ; Denies abdominal pain, diarrhea, nausea or vomiting Genitourinary Genitourinary ED: Denies dysuria, hematuria or urinary frequency Musculoskeletal Musculoskeletal: Denies arthralgias or myalgias Integumentary Denies abscess or rash Neurologic Neurologic: Denies headache(s) or weakness Psychiatric Psychiatric: Denies anxiety, depression, suicidal ideation or suicidal thoughts Endocrine Endocrinology: Denies polydipsia, polyphagia or polyuria Allergic/Immunologic Allergic/Immunologic ED: Denies mouth swelling, tongue swelling or urticaria EXAM Physical Exam Const Vital Signs: 10/28/24 09:36 10/28/24 11:36 10/28/24 13:00 Temperature 97 F L Temperature Source Temporal Pulse Rate 76 61 66 Respiratory Rate 18 22 H 24 H Blood Pressure 156/76 H 156/83 H Blood Pressure Mean 102 107 Pulse Ox 99 97 Oxygen Delivery Method Room Air Room Air Room Air 10/28/24 13:21 Temperature 97 F L Temperature Source Pulse Rate 66 Respiratory Rate 24 H Blood Pressure 156/83 H Blood Pressure Mean 107 Pulse Ox 97 Oxygen Delivery Method Positive well nourished and well developed General Appearance ED: well developed HEENT Reports normocephalic, head/scalp atraumatic and moist mucous membranes Eyes PERRL and EOMs intact bilaterally Neck no lymphadenopathy, supple and no JVD Resp normal respiratory effort and clear to auscultation bilaterally Cardio regular rate, regular rhythm and no murmurs GI normal to inspection, nondistended, normoactive bowel sounds and non-tender Palpation: soft Back/Spine no CVA tenderness and normal ROM Extremity normal to inspection General Extremety ED: Negative for edema General Extremity: Negative for edema Neuro oriented x3 and CN's II-XII intact bilaterally Sensorium / Orientation: alert Motor Exam: strength 5/5 throughout Psych mental status grossly normal Mood & Affect: Negative for depressed or tearful Skin no rashes or lesions noted and no wounds MDM MDM MDM Narrative Medical decision making narrative: Differential diagnosis includes but not limited to lower GI bleed diverticulosis AVM internal hemorrhoids anal fissure electrolyte imbalance kidney injury. Basic blood work shows a hemoglobin of 14.1 white count of 4.1 he is chronically has a low white count platelet count is 147 BMP shows a glucose of 119 normal LFTs normal lipase urinalysis negative. CT abdomen pelvis does not demonstrate any obvious amatory condition. I do not see an obvious cause for why the patient would feel more fatigued than normal. I do not think he needs a blood transfusion. He has not had any further bleeding today. I think it is reasonable with his hemoglobin and his vital signs exam that he follow-up with primary care return if worsening or concerns History & Record Review Discussion w/independent historian: Patient Additional record(s) reviewed:: Prior ED visit and Prior labs Lab Data Labs: Laboratory Results - last 24 hr 10/28/24 10/28/24 10:47 10:56 WBC 4.1 L RBC 4.75 Hgb 14.1 Hct 40.7 MCV 85.7 MCH 29.7 MCHC 34.6 RDW Std Deviation 43.7 RDW Coeff of [place] 14.2 Plt Count 147 L MPV 10.7 Immature Gran % (Auto) 0.200 Neut % (Auto) 67.5 Lymph % (Auto) 22.3 [place] % (Auto) 8.3 Eos % (Auto) 1.2 Baso % (Auto) 0.5 Absolute Neuts (auto) 2.8 Absolute Lymphs (auto) 0.92 Nucleated RBC % 0 Sodium 141 Potassium 3.7 Chloride 108 Carbon Dioxide 24.2 Anion Gap 9 BUN 15 Creatinine 0.93 Estim Creat Clear Calc 125.79 Est GFR (MDRD) Non-Af 90 BUN/Creatinine Ratio 15.9 Glucose 119 H Calcium 8.4 Total Bilirubin 0.62 Direct Bilirubin 0.25 AST 30 ALT 36 Alkaline Phosphatase 67 Total Protein 6.6 Albumin 4.1 Globulin 2.5 Lipase 33 Urine Color Yellow Urine Clarity Clear Urine pH 7.0 Ur Specific [place] 1.010 Urine Protein 15 H Urine Glucose (UA) Normal Urine Ketones Negative Urine Occult Blood Negative Urine Nitrite Negative Urine Bilirubin Negative Urine Urobilinogen Normal Ur Leukocyte Esterase Negative Urine RBC 0 SEEN Urine WBC 0 SEEN Ur Squamous Epith Cells 0-5 SEEN Urine Bacteria 0 SEEN Urine Mucus 0 SEEN Radiography Diagnostic Testing: Clinical Impression(s) from Imaging Studies Abdomen/Pelvis CT 10/28/24 12:14 IMPRESSION: Fatty infiltration of the liver. Stable small hypodensity in the right lobe of the liver. Status post cholecystectomy. Stable right renal cyst. Stable left adrenal nodule suggestive of an adenoma. Sigmoid diverticulosis. OVERALL FINAL ASSESSMENT: . LI-RADS is not meant to be used in patients <18 years or patients with cirrhosis due to congenital hepatic fibrosis or due to vascular disorders, because these patients have a lower chance of developing HCC. Reading Location: [id number] Discharge Plan Triage Chief Complaint: GI Bleed ED Provider: Robby Mclaughlin Dx/Rx/DC Orders Clinical Impression: Acute lower GI bleeding Instructions: ED Lower GI Bleeding (Stable) Prescriptions: No Action tamsulosin 0.4 mg capsule 0.4 mg PO DAILY testosterone 20.25 mg/1.25 gram (1.62 %) gel in metered-dose pump 4 pump transdermal DAILY Patient Comments: APPLY 4 PUMPS DAILY aspirin 81 mg tablet,delayed release (DR/EC) 81 mg PO DAILY Patient Comments: PT IS SUPPOSE TO, BUT DOES NOT albuterol sulfate 1 INHALER inhaler 1 - 2 puff INHALATION Q6H PRN (Reason: Asthma) esomeprazole magnesium 40 mg capsule,delayed release(DR/EC) 40 mg PO BID Patient Comments: PT ONLY TAKES ONCE A DAY losartan 100 mg tablet 100 mg PO DAILY potassium chloride 10 mEq tablet extended release 20 meq PO DAILY finasteride 5 mg tablet 5 mg PO DAILY atomoxetine 40 mg capsule 40 mg PO DAILY multivitamin [Daily Multi-Vitamin] Tablet 1 tab PO DAILY oxycodone-acetaminophen 5-325 mg tablet 1 tab PO DAILY PRN (Reason: pain) amlodipine 5 mg tablet 10 mg PO DAILY Qty: 90 3RF Primary Care Provider: Jagjit Myers Referrals: Jagjit Myers MD [Primary Care Provider] - 3-5 Days Print Language: Guyanese Disposition Disposition: Home, Self Care Discharge Date/Time: 10/28/24 13:21
[2024-10-28 11:00] LABS: Color, Urine Yellow (Yellow); Glucose, Dipstick Normal (Normal); Ketone-Dipstick Negative (Negative); Leukocyte Esterase-Dipstick Negative /ul (Negative); Nitrite-Dipstick Negative (Negative); Occult Blood-Urine Negative /ul (Negative); Protein-Dipstick 15 mg/dl (Negative); Urine Bilirubin Dipstick Negative (Negative); Urine Clarity Clear (Clear); Urine Urobilinogen Normal (Normal)
[2024-10-28 11:08] LABS: Absolute Lymphocyte Count 0.92 X10^3/uL (0.83-4.51); Absolute Neutrophil Count 2.8 X10^3/uL (2.0-7.7); Basophil# 0.02 X10^3/uL; Basophil% 0.5 % (0-1); Eosinophil# 0.05 X10^3/uL; Eosinophils% 1.2 % (0-5); Hematocrit 40.7 % (40-54); Hemoglobin 14.1 g/dL (13.0-16.5); Lymphocyte # 0.92 X10^3/ul (0.83-4.51); Lymphocyte % 22.3 % (19-41); Mean Corp Hgb Conc 34.6 g/dL (32-36); Mean Corpuscular Hgb 29.7 pg (27.0-32.0); Mean Corpuscular Volume 85.7 fL (80-94); Mean Platelet Vol. 10.7 fl (6.2-12.0); Monocyte# 0.34 X10^3/uL; Monocyte% 8.3 % (0-10); NRBC Flagged by Analyzer 0 % (0-5); Neutrophil # 2.78 X10^3/uL (2.7-7.7); Neutrophil % 67.5 % (47-70); Platelet Count 147 K/mm3 (150-450); RBC Distribution Width CV 14.2 % (11.6-14.6); RBC Distribution Width SD 43.7 fl (35.1-43.9); Red Blood Count 4.75 M/mm3 (4.6-6.2); White Blood Count 4.1 K/mm3 (4.4-11.0)
[2024-10-28 11:09] LABS: Squamous Epithelial Cells - UA 0-5 SEEN /hpf (0-5)
[2024-10-28 11:36] VITALS: PULSE 61; RESP 22; O2SAT 97
[2024-10-28 11:53] LABS: AST(SGOT) 30 U/L (<=37); Alanine Aminotransfer ALT/SGPT 36 U/L (<=46); Albumin, Serum 4.1 g/dL (3.4-4.8); Alkaline Phosphatase 67 U/L (40-129); Anion Gap 9 (5-15); BUN 15 mg/dL (4-19); BUN/Creat Ratio 15.9 RATIO (10-20); Bilirubin, Direct 0.25 mg/dL (0.00-0.30); Calcium,Total 8.4 mg/dL (7.6-11.0); Carbon Dioxide 24.2 mmol/L (21.0-32.0); Chloride 108 mmol/L (98-108); Creatinine, Serum 0.93 mg/dL (0.70-1.20); EST Glomerular Filtration Rate 90 (>60); Estimated Creatinine Clearance 125.79 ml/min (50-250); Globulin 2.5 g/dL (2.2-4.2); Glucose 119 mg/dL (70-99); Lipase 33 U/L (13-75); Potassium 3.7 mmol/L (3.3-5.1); Protein, Total 6.6 g/dL (5.9-8.4); Sodium Level 141 mmol/L (133-145); Total Bilirubin 0.62 mg/dL (0.00-1.30)
--- NOTE | 2024-10-28 12:14 | CT_ITS ---
PROCEDURE: ABDOMEN/PELVIS W IV CONT ONLY 10/28/2024 REASON FOR EXAM: ABDOMINAL PAIN Rectal bleed. TECHNIQUE: Abdomen and pelvis CT with intravenous contrast. Coronal and Sagittal reconstruction series were provided. PATIENT PREPARATION: Per protocol ORAL CONTRAST TYPE: None. CONTRAST: 100 cc of Isovue-300 One or more dose reduction techniques were used (e.g., Automated exposure control, adjustment of the mA and/or kV according to patient size, use of iterative reconstruction technique. RADIATION DOSE SUMMARY: CTDlvol: 15.8 mGy DLP: 1379.88 mGycm COMPARISON: Comparison is made with prior study dated December 14, 2022. FINDINGS: Lung bases: Mild residual linear atelectasis at the lung bases. Coronary artery calcification. Liver: Diffuse fatty infiltration. Stable 1.2 cm hypodensity in the right lobe of the liver suggestive of a small cyst. Gallbladder: The patient is status post cholecystectomy. Spleen: Borderline splenomegaly. Pancreas: Normal size without evidence of mass surrounding inflammation or ductal dilation. Adrenals: Stable 1.6 cm hypodense nodule in the crux of the left adrenal gland. Kidneys: There is a 5.5 cm by 5.5 cm cyst in the lower pole of the right kidney. Bladder: Penile implant with pump is seen. This is unchanged. The prostate is enlarged measuring 5.6 cm by 5.1 cm. This causes indentation of the bladder base. Bowel: Colonic diverticulosis without diverticulitis. Appendix: Unremarkable Lymph nodes: No suspicious lymph node enlargement. Vasculature: Scattered calcific plaques of the abdominal aorta. Peritoneum / Retroperitoneum: Unremarkable Bones: Degenerative changes of the spine. CT/Abdomen/Pelvis W IV Cont ONLY IMPRESSION: Fatty infiltration of the liver. Stable small hypodensity in the right lobe of the liver. Status post cholecystectomy. Stable right renal cyst. Stable left adrenal nodule suggestive of an adenoma. Sigmoid diverticulosis. OVERALL FINAL ASSESSMENT: . LI-RADS is not meant to be used in patients <18 years or patients with cirrhosi s due to congenital hepatic fibrosis or due to vascular disorders, because these patients have a lower chance of developing HC C. Reading Location: [id number]
[2024-10-28] MEDS: Ondansetron 4 MG/2 ML Vial IV (12:47)
[2024-10-28 13:00] VITALS: BP 156/83; PULSE 66; RESP 24
[2024-10-28 13:21] VITALS: BP 156/83; PULSE 66; RESP 24; TEMP 36.1; O2SAT 97
== END 2024-10-28 13:21 | disposition home or self-care (01) ==
PROVIDERS: Emergency Provider Emergency Medicine; PCP Family Medicine; Visit Provider Emergency Medicine
DX: K92.2 Gastrointestinal hemorrhage, unspecified (principal); E78.00 Pure hypercholesterolemia, unspecified; I10 Essential (primary) hypertension; I25.10 Atherosclerotic heart disease of native coronary artery without angina pectoris; Z87.891 Personal history of nicotine dependence; K21.9 Gastro-esophageal reflux disease without esophagitis; Z79.899 Other long term (current) drug therapy
CPT/HCPCS: 74177; 80048; 80076; 81001; 83690; 85025; 96374; 99283; Q9967; A4216; J2405

== ENCOUNTER 2024-11-20 10:25 | Emergency (ER) | payer MEDICARE, BC, SELFPAY ==
[2024-11-20 10:26] VITALS: BP 165/76; PULSE 86; RESP 20; TEMP 37.1; O2SAT 98; BMI 40.1
--- NOTE | 2024-11-20 10:43 | EKG12_ITS ---
Test Reason : SOB Blood Pressure : */* mmHG Vent. Rate : 80 BPM Atrial Rate : 80 BPM P-R Int : 354 ms QRS Dur : 90 ms QT Int : 374 ms P-R-T Axes : 73 -43 54 degrees QTcB Int : 431 ms Sinus rhythm with 1st degree A-V block Left axis deviation Minimal voltage criteria for LVH, may be normal variant ( R in aVL ) Abnormal ECG Confirmed by SOUTH CONTI, JEN ([id number]), book editor LATISHA HECK ([id number]) on 11/25/2024 7:10:49 AM Referred By: PATRIZIA/ROSALVA Confirmed By: JEN DIA MD
--- NOTE | 2024-11-20 10:45 | ED.VIS.DYS ---
HPI History of Present Illness Chief Complaint: Shortness of Breath Informant: patient Narrative Narrative: 69-year-old male presents with worsening dyspnea on exertion, gradual in onset over the last couple weeks. Denies any chest pain with any of this. However he is getting to the point where he does not have to do very much exertion before he needs to stop and rest, he sometimes feels near syncopal with this but he has not lost consciousness, last night was 1 of those episodes and so we decided to check his blood pressure and it was 70s/50s. He denies any leg edema or orthopnea. This morning, he called his [facility] office to make an appointment about this and he was referred here to the ER. He states at rest right now other than being a little tired, he is asymptomatic. States he was cardioverted out of atrial flutter years ago and has been off of anticoagulants, and also has a stent. He states as a result of the symptoms he saw his primary care doctor recently, he states they took a chest x-ray and was told it was normal/negative for pneumonia, so they put him on an antibiotic anyway, so he is currently on doxycycline and day 3 of prednisone. He thinks that it is helping the minor dry cough that he has been having a little. [facility] Medical History History of cardioversion First degree heart block Dyslipidemia Morbid obesity with BMI of 40.0-44.9, adult Paroxysmal atrial flutter Coronary artery disease Thrombocytopenia Failure of outpatient treatment Complicated urinary tract infection Dyspnea Atrial flutter History of shingles Fatigue History of pulmonary embolism Former tobacco use History of TIA (transient ischemic attack) Chest pain Rectal bleeding Pure hypercholesterolemia Acute pyelonephritis Prostate enlargement UTI (urinary tract infection) Dyspnea on exertion Claudication Fibromyalgia BPH (benign prostatic hyperplasia) GERD (gastroesophageal reflux disease) Essential hypertension Atherosclerotic heart disease of [place] coronary artery without angina pectoris Confusion Unstable angina HTN (hypertension) Abnormal myocardial perfusion study H/O percutaneous transluminal coronary angioplasty Abnormal stress test DEENA (obstructive sleep apnea) Pulmonary embolism Obesity Testosterone deficiency Home Medications ?Medication ?Instructions ?Recorded ?Last Taken ?Type albuterol sulfate 90 mcg/actuation 1 - 2 puff inhalation Q6H PRN 07/08/19 02/08/20 History aerosol inhaler Asthma testosterone 4 pump transdermal DAILY low 11/23/21 10/28/24 History testosterone tamsulosin 0.4 mg capsule 0.4 mg PO DAILY prostate 04/29/22 10/28/24 History aspirin 81 mg tablet,delayed 81 mg PO DAILY 07/05/23 Unknown History release amlodipine 5 mg tablet 10 mg (2 x 5 mg) PO DAILY htn #90 04/08/24 10/28/24 Rx tabs atomoxetine 40 mg capsule 40 mg PO DAILY 10/28/24 10/28/24 History esomeprazole magnesium 40 mg 40 mg PO BID 10/28/24 10/28/24 History capsule,delayed release finasteride 5 mg tablet 5 mg PO DAILY 10/28/24 10/28/24 History losartan 100 mg tablet 100 mg PO DAILY 10/28/24 10/28/24 History multivitamin (Daily Multi-Vitamin 1 tab PO DAILY 10/28/24 10/28/24 History tablet) oxycodone-acetaminophen 5 mg-325 1 tab PO DAILY PRN pain 10/28/24 Unknown History mg tablet potassium chloride 10 mEq 20 meq PO DAILY 10/28/24 10/28/24 History tablet,extended release Allergy/AdvReac Type Severity Reaction Status Date / Time Sulfa (Sulfonamide Allergy Unknown Verified 11/20/24 10:26 Antibiotics) Family History Mother CAD (coronary artery disease) Hypertension Hx of CABG Father Hypertension Myocardial infarction Grandfather Myocardial infarction paternal Grandmother Cancer pancreatic CA Grandfather CAD (coronary artery disease) Surgical History Spinal cord stimulator status (~05/2021) History of back surgery History of transurethral resection of prostate History of arthroscopy of right knee History of laparoscopic cholecystectomy Presence of coronary angioplasty implant and graft (~08/2012) Presence of stent in coronary artery (~08/2012) History of left heart catheterization (LHC) History of PTCA (~08/2012) History of tonsillectomy and adenoidectomy History of repair of rotator cuff Social History Smoking Status: Former smoker quit date: 06/19/94 pack-years: 42 how long ago did patient quit smokin second hand exposure: No alcohol intake: current alcohol intake frequency: holidays/special occasions only Alcohol type: beer substance use type: does not use caffeine: Yes Type: carbonated beverages, coffee and tea what type of physical activity do you participate in: none ROS ROS ED Constitutional Constitutional ED: Reports sweats; Denies chills or fever(s) Eyes Eyes: Denies change in vision or diplopia ENT ENT ED: Denies rhinorrhea or sore throat Cardiovascular Cardiovascular: Denies chest pain, leg edema, orthopnea, palpitations, paroxysmal nocturnal dyspnea or racing heartbeat Respiratory/Chest Respiratory/Chest: Reports cough, dyspnea and dyspnea on exertion; Denies orthopnea, paroxysmal nocturnal dyspnea or sputum Gastrointestinal Gastrointestinal: Denies abdominal pain, diarrhea, nausea or vomiting Genitourinary Genitourinary ED: Denies dysuria or hematuria Musculoskeletal Musculoskeletal: Denies back pain or neck pain Integumentary Denies abscess or rash Neurologic Neurologic: Denies headache(s), paresthesias or weakness Psychiatric Psychiatric: Denies suicidal thoughts EXAM Physical Exam Const Vital Signs: 11/20/24 10:26 11/20/24 10:51 11/20/24 10:56 Temperature 98.7 F Temperature Source Temporal Pulse Rate 86 Respiratory Rate 20 H Respiratory Effort Normal Non-Labored Respiratory Depth Normal Respiratory Pattern Normal Blood Pressure 165/76 H Blood Pressure Mean 105 Pulse Ox 98 Oxygen Delivery Method Room Air Room Air Room Air 11/20/24 12:25 Temperature Temperature Source Pulse Rate 74 Respiratory Rate 19 H Respiratory Effort Respiratory Depth Respiratory Pattern Blood Pressure 149/72 H Blood Pressure Mean 97 Pulse Ox 96 Oxygen Delivery Method Room Air Positive well nourished and well developed General Appearance ED: well developed and NAD HEENT Reports moist mucous membranes normocephalic and atraumatic Eyes PERRL and EOMs intact bilaterally Neck full ROM and supple Resp normal respiratory effort Resp Narrative: Occasional end expiratory wheeze at bases. Cardio regular rate, regular rhythm and no murmurs Cardio Narrative: No JVD GI non-tender and non-distended Auscultation: normoactive bowel sounds Palpation: soft Back/Spine no CVA tenderness General Back: other FROM Extremity normal to inspection General Extremety ED: Yes edema; Negative for pulses abnormal or tenderness General Extremity: edema bilateral lower extremity Details: trace; Negative for pulses abnormal Neuro oriented x3, CN's II-XII intact bilaterally and no sensory deficits noted Sensorium / Orientation: awake and alert Motor Exam: strength 5/5 throughout Skin no rashes or lesions noted and no wounds MDM MDM MDM Narrative Medical decision making narrative: 2 view chest x-ray normal in my interpretation, radiology in agreement. His initial troponin is a little elevated at 25 this is nonspecific, may be related to his elevated creatinine which may be related to his large size and muscle burden. His EKG appears normal except for first-degree AV block, left axis, but none of this is new or different than old, his rhythm has been normal here in the ER throughout his observation and on his EKG. He states he has an [employer] Watch with the atrial fibrillation algorithm and he has had no alarms that he has been in A-fib and he wears a watch all the time. He states his watch did alarm him about A-fib episodes back when he was having it. He has been off anticoagulation since last February or so. Because of this I did a D-dimer to rule out PE it is negative ruling that out. He was able to walk to and from the bathroom without any significant difficulty here in the ER. I discussed with Dr. Vo with cardiology, if his delta troponin is negative, he would support an outpatient stress test. Indeed it is lower than the initial, from 25 down to 20. Given this, unlikely acute coronary syndrome. Outpatient stress test will be set up through cardiology, patient will be discharged home today he is comfortable with that plan. He is to call the office for specific timing. Lab Data Attestation: I reviewed the patient's lab results. Labs: Laboratory Results - last 24 hr 11/20/24 11/20/24 10:55 12:53 WBC 6.4 RBC 5.19 Hgb 15.4 Hct 44.4 MCV 85.5 MCH 29.7 MCHC 34.7 RDW Std Deviation 45.0 H RDW Coeff of Lito 14.4 Plt Count 160 MPV 11.2 Immature Gran % (Auto) 0.500 Neut % (Auto) 82.7 H Lymph % (Auto) 11.7 L [place] % (Auto) 4.4 Eos % (Auto) 0.2 Baso % (Auto) 0.5 Absolute Neuts (auto) 5.3 Absolute Lymphs (auto) 0.75 L Nucleated RBC % 0 D-Dimer Quant (PE/DVT) 0.30 Sodium 140 Potassium 3.8 Chloride 106 Carbon Dioxide 21.6 Anion Gap 12 BUN 23 H Creatinine 1.22 H Estim Creat Clear Calc 95.39 Est GFR (MDRD) Non-Af 65 BUN/Creatinine Ratio 18.9 Glucose 156 H Calcium 9.2 Troponin T High Sens 25 H Troponin T Hi Sens 2 Hr 20 NT pro BNP II 143 Radiography Diagnostic Testing: Clinical Impression(s) from Imaging Studies Chest X-Ray 11/20/24 11:33 IMPRESSION: No evidence of acute cardiopulmonary pathology. Reading Location: [id number] Rhythm Strip Rhythm Strip: Sinus Rhythm Rate: 80 Ectopy: None EKG Initial EKG: Attestation: I personally reviewed and interpreted this EKG as follows: Interpretation: Sinus Rhythm, No Acute Injury Pattern, LAFB and AV Block (First-degree) Prior EKG tracings: available for review Prior: Unchanged Discharge Plan Triage Chief Complaint: Shortness of Breath ED Provider: Jose Alberto Contreras Dx/Rx/DC Orders Clinical Impression: Dyspnea on exertion Instructions: ED Dyspnea Prescriptions: No Action tamsulosin 0.4 mg capsule 0.4 mg PO DAILY testosterone 20.25 mg/1.25 gram (1.62 %) gel in metered-dose pump 4 pump transdermal DAILY Patient Comments: APPLY 4 PUMPS DAILY aspirin 81 mg tablet,delayed release (DR/EC) 81 mg PO DAILY Patient Comments: PT IS SUPPOSE TO, BUT DOES NOT albuterol sulfate 1 INHALER inhaler 1 - 2 puff INHALATION Q6H PRN (Reason: Asthma) esomeprazole magnesium 40 mg capsule,delayed release(DR/EC) 40 mg PO BID Patient Comments: PT ONLY TAKES ONCE A DAY losartan 100 mg tablet 100 mg PO DAILY potassium chloride 10 mEq tablet extended release 20 meq PO DAILY finasteride 5 mg tablet 5 mg PO DAILY atomoxetine 40 mg capsule 40 mg PO DAILY multivitamin [Daily Multi-Vitamin] Tablet 1 tab PO DAILY oxycodone-acetaminophen 5-325 mg tablet 1 tab PO DAILY PRN (Reason: pain) amlodipine 5 mg tablet 10 mg PO DAILY Qty: 90 3RF Primary Care Provider: Jagjit Myers Referrals: Karl Vo MD [Med Staff - Active Staff] - (Call [facility] for stress appointment time) Print Language: [place]anian Disposition Disposition: Home, Self Care
[2024-11-20 10:56] VITALS: O2SAT 99
[2024-11-20 11:06] LABS: Absolute Lymphocyte Count 0.75 X10^3/uL (0.83-4.51); Absolute Neutrophil Count 5.3 X10^3/uL (2.0-7.7); Basophil# 0.03 X10^3/uL; Basophil% 0.5 % (0-1); Eosinophil# 0.01 X10^3/uL; Eosinophils% 0.2 % (0-5); Hematocrit 44.4 % (40-54); Hemoglobin 15.4 g/dL (13.0-16.5); Lymphocyte # 0.75 X10^3/ul (0.83-4.51); Lymphocyte % 11.7 % (19-41); Mean Corp Hgb Conc 34.7 g/dL (32-36); Mean Corpuscular Hgb 29.7 pg (27.0-32.0); Mean Corpuscular Volume 85.5 fL (80-94); Mean Platelet Vol. 11.2 fl (6.2-12.0); Monocyte# 0.28 X10^3/uL; Monocyte% 4.4 % (0-10); NRBC Flagged by Analyzer 0 % (0-5); Neutrophil % 82.7 % (47-70); Platelet Count 160 K/mm3 (150-450); RBC Distribution Width CV 14.4 % (11.6-14.6); Red Blood Count 5.19 M/mm3 (4.6-6.2); White Blood Count 6.4 K/mm3 (4.4-11.0)
[2024-11-20 11:28] LABS: Pro- Brain NATRIURETIC PEPTIDE 143 pg/mL (<=900); Troponin T High Sensitivity 25 ng/L (<=22)
[2024-11-20 11:29] LABS: Anion Gap 12 (5-15); BUN 23 mg/dL (4-19); BUN/Creat Ratio 18.9 RATIO (10-20); Calcium,Total 9.2 mg/dL (7.6-11.0); Carbon Dioxide 21.6 mmol/L (21.0-32.0); Chloride 106 mmol/L (98-108); Creatinine, Serum 1.22 mg/dL (0.70-1.20); EST Glomerular Filtration Rate 65 (>60); Estimated Creatinine Clearance 95.39 ml/min (50-250); Glucose 156 mg/dL (70-99); Potassium 3.8 mmol/L (3.3-5.1); Sodium Level 140 mmol/L (133-145)
--- NOTE | 2024-11-20 11:33 | RAD_ITS ---
PROCEDURE: CHEST PA AND LATERAL 11/20/2024 REASON FOR EXAM: SOB W/ EXERTION TECHNIQUE: Frontal and lateral views of the chest. COMPARISON: Two-view chest, 12/15/2022 FINDINGS: The lungs are clear. The heart borders and pulmonary vascular pattern are normal. There is calcific vascular disease of the thoracic aorta. There is an intrathecal stimulator with the tip at the midthoracic level. The upper abdominal bowel gas pattern is normal. RAD/Chest PA and Lateral IMPRESSION: No evidence of acute cardiopulmonary pathology. Reading Location: [id number]
[2024-11-20 12:25] VITALS: BP 149/72; PULSE 74; RESP 19; O2SAT 96
[2024-11-20 13:14] LABS: Troponin T High Sens 2 HR 20 ng/L (<=22)
[2024-11-20 14:20] VITALS: BP 146/88; PULSE 75; RESP 16; TEMP 36.6; O2SAT 97
== END 2024-11-20 14:22 | disposition home or self-care (01) ==
PROVIDERS: Emergency Provider Emergency Medicine; PCP Family Medicine; Visit Provider Emergency Medicine
DX: R06.00 Dyspnea, unspecified (principal); I10 Essential (primary) hypertension; E78.00 Pure hypercholesterolemia, unspecified; I44.0 Atrioventricular block, first degree; I25.10 Atherosclerotic heart disease of native coronary artery without angina pectoris; Z87.891 Personal history of nicotine dependence; Z95.5 Presence of coronary angioplasty implant and graft; Z90.49 Acquired absence of other specified parts of digestive tract; Z86.711 Personal history of pulmonary embolism; K21.9 Gastro-esophageal reflux disease without esophagitis; G47.33 Obstructive sleep apnea (adult) (pediatric); Z86.73 Personal history of transient ischemic attack (TIA), and 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 residual deficits
CPT/HCPCS: 71046; 80048; 83880; 84484; 85025; 85379; 93005; 99284; A4216

== ENCOUNTER → 2024-11-21 | Outpatient (CLI) | payer MEDICARE, BC, SELFPAY ==
--- OUTSIDE RECORDS SUMMARY | 2024-11-21 06:31 | XMS RPT_ITS | CCD ---
Author Organization [facility] Care Team Providers Care Pelts Skinner Name Role Phone Aurora ZIMMERMAN, Sara Carter Unavailable Unavailable JAGJIT SOUZA Unavailable Unavailable ALYSAJAGJIT GUY Unavailable Unavailable JAGJIT SOUZA Unavailable Unavailable Erlin Mohr Unavailable Unavailable Hernán ZIMMERMAN, Dyana Nelson Unavailable [phone] Jagjit Cheema MD Primary Care Provider 1([facility])[phone] Dr. Jagjit Cheema Primary Care Provider 1([facility])[phone] Dr. Sergo Perez Attending Provider 1([facility])-[phone] Prebish CUSTOMER SERVICE CORRESPONDENCE CLERK, CUSTOMER SERVICE CORRESPONDENCE CLERK-C Isabel Referring Provider Dr. Jagjit Cheema Referring Provider 1([facility])[phone] Avila FISHER NP-Harper Galvin Attending Provider Jagjit Cheema MD Primary Care Provider Dr. Jagjit Cheema Primary Care Provider Jagjit Cheema MD Primary Care Provider 1([facility])[phone] Dr. Jagjit Cheema Primary Care Provider Dr. Jagjit Cheema Referring Provider 1([facility])[phone] Willis Alfred Attending Provider Jagjit Cheema MD Primary Care Provider 1([facility])[phone] SARA Gramajo NP Attending Provider Giacomo FISHER, NATALIA-Harper Braun Attending Provider Dr. Willis Alfred Referring Provider Dr. Willis Alfred Other Provider 1([facility])[phone] Shaji Wyatt Attending Provider Deni, Dr. Danielsno Primary Care Provider Deni, Dr. Danielson Referring Provider Giacomo FISHER, SARA Braun Attending Provider Dr. Nahum Dias Emergency Provider Dr. Lucy Partida Admit Provider Dr. Lucy Partida Attending Provider Dr. Lucy Partida Other Provider Deni, Dr. Danielson Primary Care Provider Deni, Dr. Danielson Referring Provider Dr. Flores Glover Attending Provider JAGJIT CHEEMA Primary Care Unavailable ROBBY BALES Attending Unavailable ROBBY BALES Admitting Unavailable Deni, Dr. Danielson Primary Care Provider Deni, Dr. Danielson Referring Provider Dr. Flores Glover Attending Provider Dr. Sergo Perez Attending Provider Jagjit Cheema MD Primary Care Provider JAGJIT CHEEMA Referring Unavailable JAGIJT CHEEMA Primary Care Unavailable JAGJIT CHEEMA Referring Unavailable JAGJIT CHEEMA Primary Care Unavailable Haagen BANQUET SERVER.EDGE POLISHER, Susan Unavailable Suppan BANQUET SERVER.EDGE POLISHER, Beverley A Unavailable Suppan BANQUET SERVER.EDGE POLISHER, Beverley A Unavailable Suppan BANQUET SERVER.EDGE POLISHER, Beverley A Unavailable [phone] Dr. Jagjit Cheema MD Primary Care Provider Dr. Jagjit Cheema MD Referring Provider Hussein Christina Attending Provider Dr. Robby Mclaughlin DO Emergency Provider Karl Vo Attending Unavailable Jagjit Cheema Care Unavailable Flores Glover Referring Unavailable Flores Glover Attending Unavailable Deni, Jagjit Primary Care Unavailable Adalberto, Flores Referring Unavailable Adalberto, Flores Consulting Unavailable Adalberto, Flores Attending Unavailable Deni, Jagjit Primary Care Unavailable Adalberto, Flores Referring Unavailable Deni, Jagjit Primary Care Unavailable Karl Vo Attending Unavailable Deni, Jagjit Referring Unavailable Robby Mclaughlin Attending Unavailable Deni, Jagjit Primary Care Unavailable Deni, Jagjit Primary Care Unavailable Lonoke, Mayelin Attending Unavailable Lonoke, Mayelin Referring Unavailable Adalberto, Flores Attending Unavailable Adalberto, Flores Referring Unavailable Deni, Jagjit Primary Care Unavailable Adalberto, Flores Attending Unavailable [place], Jagjit Primary Care Unavailable Haagen CUSTOMER SERVICE CORRESPONDENCE CLERK, Susan Attending Unavailable Haagen CUSTOMER SERVICE CORRESPONDENCE CLERK, Susan Referring Unavailable Deni, Jagjit Primary Care Unavailable Sergo Perez Attending Unavailable Deni, Jagjit Primary Care Unavailable Deni, Jagjit Referring Unavailable Hussein Gramajo NP Attending Unavailable HAAGEN, SUSAN Referring Unavailable DENI, JAGJIT Sanders Primary Care Unavailable PODLOGAR, LISA Attending Unavailable DENI, JAGJIT Sanders Primary Care Unavailable ROJAS DOMINGUEZ Attending Unavailab le DENI, JAGJIT Sanders Primary Care Unavailable DENI, JAGJIT Sanders Primary Care Unavailable DENI, JAGJIT Sanders Attending Unavailable DENI, JAGJIT Sanders Primary Care Unavailable DENI, JAGJIT Sanders Attending Unavailable DENI, JAGJIT Sanders Primary Care Unavailable DENI, JAGJIT Sanders Primary Care Unavailable DENI, JAGJIT Sanders Referring Unavailable PODLOGARLISA Referring Unavailable DENI, JAGJIT Sanders Primary Care Unavailable DENI, JAGJIT Sanders Attending Unavailable DENI, JAGJIT Sanders Primary Care Unavailable HAAGENSUSAN Attending Unavailable DENI, JAGJIT Sanders Primary Care Unavailable DENI, JAGJIT Sanders Primary Care Unavailable HAAGENSUSAN Referring Unavailable HAAGENSUSAN Referring Unavailable DENI, JAGJIT Sanders Primary Care Unavailable DENI, JAGJIT Sanders Primary Care Unavailable DENI, JAGJIT Sanders Referring Unavailable DENI, JAGJIT Sanders Attending Unavailable DENI, JAGJIT Sanders Primary Care Unavailable HAAGENSUSAN Referring Unavailable DENI, JAGJIT Sanders Primary Care Unavailable DENI, JAGJIT Sanders Attending Unavailable DENI, JAGJIT Sanders Primary Care Unavailable DENI, JAGJIT Sanders Primary Care Unavailable BEVERLEY GUTIERREZ Attending Unavailable DENI, JAGJIT Sanders Attending Unavailable DENI, JAGJIT Sanders Primary Care Unavailable DENI, JAGJIT Sanders Primary Care Unavailable DENI, JAGJIT Sanders Referring Unavailable DENI, JAGJIT Sanders Primary Care Unavailable DENI, JAGJIT Sanders Referring Unavailable DENI, JAGJIT Sanders Attending Unavailable DENI, JAGJIT Sanders Primary Care Unavailable PODLOGLISA MRAIN Referring Unavailable JAGJIT CHEEMA Primary Care Unavailable JAGJIT CHEEMA Attending Unavailable JAGJIT CHEEMA Primary Care Unavailable JAGJIT CHEEMA Attending Unavailable JAGJIT CHEEMA Primary Care Unavailable JAGJIT CHEEMA Primary Care Unavailable JAGJIT CHEEMA Referring Unavailable JAGJIT CHEEMA Attending Unavailable JAGJIT CHEEMA Primary Care Unavailable JAGJIT CHEEMA Referring Unavailable JAGJIT CHEEMA Primary Care Unavailable JAGJIT CHEEMA Primary Care Unavailable JAGJIT CHEEMA Referring Unavailable SUSAN KERR Attending Unavailable DENI, JAGJIT Sanders Primary Care Unavailable SELF Referring Unavailable Allergies Allergy Classification Reported Allergen(s) Allergy Type Date of Onset Reaction(s) Facility Sulfonamides (antibiotic) (3 sources) Sulfonamides (Antibiotic) Drug Allergy 5 [facility] Work Phone: (3 sources) Sulfonamides (Antibiotic) drug allergy 3 [facility] Work Phone: (1 source) Sulfonamides (Antibiotic) Drug allergy (disorder) [facility] (20 sources) Sulfonamides (Antibiotic); Translations: [SULFA (SULFONAMIDE ANTIBIOTICS)] Drug Allergy 5 [facility] Work Phone: (14 sources) Sulfonamides (Antibiotic) Allergy to substance 2 Unknown [facility] (1 source) Sulfonamides (Antibiotic) Drug allergy (disorder) 5 [facility] Medications Current Medications Medication Drug Class(es) Dates Sig (Normalized) Sig (Original) acetaminophen 325 mg / oxyCODONE hydrochloride 5 mg oral tablet (20 sources) Opioid Agonist Start: 10-28-2024 Oxycodone-Acetamin ophen 5-325 mg tablet Active 1 {tbl} PO DAILY as needed for pain October 28, 2024 12:00am oxyCODONE-acetam inophen 5-325 mg (PERCOCET) as needed. Active oxyCODONE-acetam inophen 5-325 mg (PERCOCET) as needed. 0 Active oxyCODONE-acetam inophen 5-325 mg (PERCOCET) Comment on above: as needed. acyclovir 800 mg oral tablet (1 source) Herpesvirus Nucleoside Analog DNA Polymerase Inhibitor, Herpes Simplex Virus Nucleoside Analog DNA Polymerase Inhibitor, Herpes Zoster Virus Nucleoside Analog DNA Polymerase Inhibitor Start: 11-30-19 End: 12-07-19 take 1 tablet by mouth five times daily acyclovir (ZOVIRAX) 800 mg tablet Take 1 tablet by mouth five times daily for 7 days. Take at first signs of outbreak. 35 tablet 0 11/29/2021 12/06/2021 Active Comment on above: Take 1 tablet by dewayne five times daily for 7 days. Take at first signs of outbreak. [id number] 200 actuat albuterol 0.09 mg/actuat metered dose inhaler (20 sources) beta2-Adrenergic Agonist Start: 04-28-20 End: 06-17-20 take 2 puff(s) by inhalation every four hours as needed for cough albuterol HFA (PROAIR HFA) 90 mcg/actuation inhaler Indications: Sinobronchitis Inhale 2 Puffs as instructed every 4 hours as needed (FOR COUGH OR WHEEZE). 18 g 2 06/17/2024 Active Start: 07-08-2019 Albuterol Sulf ate 1 INHALER inhaler Active 1 - 2 NMA INHALATION EVERY 6 HOURS as needed for Asthma July 08, 2019 1:00am Start: 07-08-2019 take 1 puff(s) by in halation every six hours as needed Albuterol Sulfate Active 1 - 2 PUFF INHALATION EVERY 6 HOURS NEEDED July 08, 2019 1:00am Comment on above: Inhale 2 Puffs as in structed every 4 hours as needed (FOR COUGH OR WHEEZE). amLODIPine 5 mg oral tablet (20 sources) Dihydropyridine Calcium Channel Jacob Start: 4 End: 4 take 2 tablets by mouth once daily Amlodipine 5 mg tablet Active 10 mg PO DAILY April 08, 2024 10:39am Start: 10-16-2023 take 10 mg by mouth once daily Amlodipine Active 10 MG PO DAILY October 16, 2023 2:30pm Start: 11-27-2018 End: 10-16-2023 take 1 tablet by mouth once daily amLODIPine (NORVASC) 5 mg tablet Take 1 tablet by mouth once daily. 7 tablet 12/22/2022 Active Start: 01-08-2013 End: 11-27-2018 take 1 tablet by mouth once daily Amlodipine 10 mg tablet Discontinued 10 mg PO daily June 09, 2017 1:00am November 27, 2018 3:08pm Start: 07-18-2012 End: 06-09-2017 take 1 tablet by mouth once daily Amlodipine 5 MG tablet Discontinued 5 mg PO DAILY October 03, 2013 12:00am June 09, 2017 8:42pm Comment on above: Take 1 tablet by dewayne th once daily. amoxicillin 875 mg oral tablet (7 sources) Penicillin-class Antibacterial Start: End: take 1 tablet by mouth twice daily amoxicillin (AMOXIL) 875 mg tablet Indications: Bacterial pneumonia Take 1 tablet by mouth two times a day for 7 days. 14 tablet 06/24/2024 07/01/2024 Active Start: 09-05-2023 End: 09-15-2023 take 1 tablet by mouth twice daily amoxicillin (AMOXIL) 875 mg tablet Indications: Bacterial sinusitis Take 1 tablet by mouth two times a day for 10 days. 20 tablet 0 09/05/2023 09/15/2023 Active Comment on above: Take 1 tablet by dewayne th two times a day for 10 days. aspirin 81 mg delayed release oral tablet (20 sources) Platelet Aggregation Inhibitor, Nonsteroidal Anti-inflammatory Drug Start: 07-05-2023 take 1 tablet by mouth once daily aspirin, enteric coated (ASPIRIN, ENTERIC COATED) 81 mg EC tablet Take 1 tablet by mouth once daily. 12/29/2023 Active Start: 11-07-2022 End: 07-05-2023 Aspirin 325 mg tablet,delaye d release (DR/EC) Discontinued 81 mg PO DAILY November 07, 2022 11:18am July 05, 2023 2:04pm Start: 11-07-2022 End: 07-05-2023 take 81 mg by mouth once daily Aspirin Discontinued 81 MG PO DAILY November 07, 2022 11:18am July 05, 2023 2:04pm Start: 11-02-2012 End: 11-07-2022 take 1 tablet by mouth once daily Aspirin (Adult Aspirin Regimen) 81 mg tablet,delayed release (DR/EC) Discontinued 81 mg PO DAILY April 12, 2021 12:00am November 07, 2022 11:19am Start: 09-18-2012 take 1 tablet by dewayne th once daily ASPIRIN 325 MG TABS One tablet by mouth daily ASPIRIN [id number] Rubina Barger RN Start: 07-18-2012 take 1 tablet by dewayne th once daily ASPIRIN 81 MG TABS One tablet by mouth daily ASPIRIN [id number] Rubina Barger RN Comment on above: Take 81 mg by mouth once daily. atomoxetine 40 mg oral capsule (20 sources) Norepinephrine Reuptake Inhibitor Start: 09-23-2024 End: 04-19-2025 atomoxetine (STRATTERA) 40 mg capsule Take 1 capsule by mouth once daily. For one week and then back to 80 mg a day. Start once the pristiq is done. 60 capsule 10/21/2024 04/19/2025 Active Start: 11-29-2023 End: 11-28-2024 take 1 capsule by mouth once daily atomoxetine (STRATTERA) 100 mg capsule Indications: ADHD (attention deficit hyperactivity disorder), combined type Take 1 capsule by mouth once daily. 30 capsule 11/29/2023 09/23/2024 Discontinued Start: 10-25-2023 End: 11-29-2023 take 1 capsule by mouth once daily atomoxetine (STRATTERA) 40 mg capsule Indications: ADHD (attention deficit hyperactivity disorder), combined type Take one cap po q day for one week and then increase to 80 mg a day 60 capsule 10/25/2023 11/29/2023 Discontinued CPAP (20 sources) Start: 10-30-2019 CPAP Indicatio ns: DEENA (obstructive sleep apnea) Requires replacement machine at same settings. 1 Device 10/30/2019 Active Start: 10-30-2019 CPAP Indicatio ns: DEENA (obstructive sleep apnea) Requires replacement machine at same settings. 1 Device 0 10/30/2019 Active Comment on above: Requires replacement machine at same settings. doxycycline hyclate 100 mg oral tablet (16 sources) Tetracycline-class Drug Start: End: take 1 tablet by mouth twice daily doxycycline (VIBRA-TABS) 100 mg tablet Indications: Bronchitis Take 1 tablet by mouth two times a day for 10 days. 20 tablet 11/18/2024 11/28/2024 Active Start: 06-24-2024 End: 07-01-2024 take 1 tablet by mouth twice daily doxycycline monohydrate 100 mg tablet Indications: Bacterial pneumonia Take 1 tablet by mouth two times a day for 7 days. 14 tablet 06/24/2024 07/01/2024 Active Start: 06-13-2024 End: 06-20-2024 take 1 tablet by mouth twice daily doxycycline (VIBRA-TABS) 100 mg tablet Take 1 tablet by mouth two times a day for 7 days. 14 tablet 06/13/2024 06/20/2024 Active Start: 12-13-2023 End: 12-23-2023 take 1 tablet by mouth twice daily doxycycline (VIBRA-TABS) 100 mg tablet Indications: Sinobronchitis Take 1 tablet by mouth two times a day for 10 days. 20 tablet 0 12/13/2023 12/23/2023 Active Start: 09-22-2022 End: 10-02-2022 take 1 tablet by mouth twice daily doxycycline monohydrate 100 mg tablet Indications: Bacterial sinusitis Take 1 tablet by mouth twice daily for 10 days. 20 tablet 0 09/22/2022 10/02/2022 Active Start: 11-29-2021 End: 12-09-2021 take 1 tablet by mouth twice daily doxycycline monohydrate 100 mg tablet Indications: Chest pain, unspecified type Take 1 tablet by mouth twice daily for 10 days. 20 tablet 11/29/2021 12/09/2021 Comment on above: Take 1 tablet by dewayne twice daily for 10 days. esomeprazole 40 mg delayed release oral capsule (20 sources) Proton Pump Inhibitor Start: End: take 1 capsule by mouth twice daily before mealtime esomeprazole (NEXIUM) 40 mg capsule Indications: GERD with esophagitis Take 1 capsule by mouth two times a day before meals. 180 capsule 1 10/16/2024 Active Start: 10-01-2020 End: 10-28-2024 take 2 capsules by mouth once daily Esomeprazole Magnesium (Nexium) 20 mg capsule,delayed release(DR/EC) Discontinued 40 mg PO DAILY October 01, 2020 3:53pm October 28, 2024 10:29am Start: 10-01-2020 End: 10-01-2020 take 1 capsule by mouth once daily Esomeprazole Magnesium (Nexium) 20 mg capsule,delayed release(DR/EC) Discontinued 20 mg PO DAILY October 01, 2020 12:00am October 01, 2020 3:53pm Start: 12-16-2019 End: 02-22-2022 take 1 capsule by mouth twice daily before mealtime esomeprazole (NEXIUM) 40 mg capsule Indications: GERD with esophagitis Take 1 capsule by mouth twice daily before meals. 180 capsule 1 06/05/2020 02/22/2022 Discontinued Start: 06-07-2019 End: 12-05-2019 take 1 capsule by mouth once daily Esomeprazole Magnesium (Nexium) 20 mg capsule,delayed release(DR/EC) Discontinued 20 mg PO DAILY June 07, 2019 1:00am December 05, 2019 3:35pm Start: 07-10-2012 End: 11-27-2018 take 1 capsule by mouth once daily Esomeprazole Magnesium 40 MG capsule Discontinued 40 mg PO DAILY October 03, 2013 12:00am November 27, 2018 3:09pm Start: 07-10-2012 take 1 tablet by [facility] once daily NEXIUM 40 MG CPDR One tablet by mouth daily ESOMEPRAZOLE MAGNESIUM [id number] Eleonora Herrera RN Comment on above: Take 1 capsule by mo [facility] twice daily before meals. Take 1 capsule by mo [facility] two times a day before meals. finasteride 5 mg oral tablet (20 sources) 5-alpha Reductase Inhibitor Start: 09-15-2024 take 1 tablet by mouth once daily finasteride (PROSCAR) 5 mg tablet Take 5 mg by mouth once daily. 09/15/2024 Active Start: 07-27-2018 End: 08-12-2020 take 1 tablet by mouth once daily Finasteride 5 MG tablet Discontinued 5 mg PO DAILY July 27, 2018 1:00am November 27, 2018 3:10pm losartan potassium 100 mg oral tablet (20 sources) Angiotensin 2 Receptor Jacob Start: 09-23-2024 End: 09-23-2025 take 1 tablet by mouth once daily losartan (COZAAR) 100 mg tablet Indications: Essential hypertension, benign Take 1 tablet by mouth once daily. 90 tablet 3 09/23/2024 09/23/2025 Active Start: 07-05-2023 End: 08-16-2025 take 1 tablet by mouth once daily Losartan 50 mg tablet Discontinued 50 mg PO DAILY July 05, 2023 1:00am October 28, 2024 10:30am Start: 10-31-2017 End: 07-26-2023 take 1 tablet by mouth once daily Losartan 25 mg tablet Discontinued 25 mg PO DAILY April 07, 2023 4:43pm July 05, 2023 2:34pm Comment on above: Take 1 tablet by dewayne th once daily. Multivitamin (Daily Multi-Vitamin) tablet (1 source) Start: 10-28-2024 Multivitamin (Daily Multi-Vitamin) tablet Active 1 {tbl} PO DAILY October 28, 2024 12:00am MULTIVITAMIN TAB (20 sources) Start: 09-26-2007 take 1 tablet by mouth once daily MULTIVITAMIN TAB Take one(1) tablet daily BY MOUTH. 0 09/26/2007 Active Comment on above: Take one(1) tablet d aily BY MOUTH. Multivitamin,Tx-Iron-M inerals (15 sources) Start: 12-10-2013 take 1 tablet by mouth once daily Multivitamin,Tx-Iron- Minerals Active 1 TABLET PO DAILY December 10, 2013 8:26am Start: 12-10-2013 take 1 tablet by dewayne th once daily Multivitamin,Ro-Qmoq-Yrbygxbv Active 1 T ABLET PO DAILY December 09, 2013 11:00pm Start: 12-10-2013 take 1 tablet by dewayne th once daily Multivitamin,Kc-Jqwc-Pernerlp Active 1 T ABLET PO DAILY December 10, 2013 12:00am nirmatrelvir tablet 300 mg (150 mg x 2) and ritonavir tablet 100 mg in a dose pack (PAXLOVID) (1 source) Start: 01-09-2024 End: 01-14-2024 nirmatrelvir tablet 300 mg (150 mg x 2) and ritonavir tablet 100 mg in a dose pack (PAXLOVID) Indications: COVID-19 Administer TWO pink nirmatrelvir 150 mg tablets and ONE white ritonavir 100 mg tablet for a total of three tablets twice daily. 30 tablet 0 01/09/2024 01/14/2024 Active potassium chloride 10 meq extended release oral tablet (20 sources) Start: 12-14-2022 End: 10-28-2024 take 2 tablets by mouth once daily Potassium Chloride 20 mEq tablet extended release Discontinued 40 meq PO DAILY December 14, 2022 12:00am October 28, 2024 10:33am Start: 12-14-2022 take 40 mEq by mouth once darlene y Potassium Chloride Active 40 MEQ PO DAILY December 14, 2022 12:00am Start: 11-23-2021 take 20 mEq by mouth once darlene y Potassium Chloride Active 20 MEQ PO DAILY November 23, 2021 12:00am Start: 11-16-2021 End: 08-16-2024 take 2 tablets by mouth once daily potassium chloride (K-TAB) 10 mEq tablet Indications: Hypokalemia Take 2 tablets by mouth once daily. 180 tablet 1 07/01/2024 Active Start: 08-27-2021 End: 11-13-2021 take 2 tablets by mouth once daily potassium chloride (K-TAB) 10 mEq tablet Indications: Hypokalemia Take 2 tablets by mouth once daily. 180 tablet 08/27/2021 11/13/2021 Discontinued Start: 04-28-2020 End: 05-01-2020 take 2 tablets by mouth once daily potassium chloride (K-TAB) 10 mEq tablet Indications: Hypokalemia Take 2 tablets by mouth once daily. 180 tablet 04/28/2020 05/01/2020 Discontinued Start: 07-10-2019 End: 11-23-2021 take 1 tablet by mouth once daily Potassium Chloride 20 MEQ tablet Discontinued 20 meq PO DAILY July 10, 2019 1:00am November 23, 2021 9:01am Start: 10-03-2013 End: 11-27-2018 take 4 tablets by mouth once daily Potassium Chloride 10 MEQ tablet extended release Discontinued 40 meq PO DAILY October 03, 2013 12:00am November 27, 2018 3:14pm Start: 10-03-2013 End: 11-27-2018 take 40 mEq by mouth once daily Potassium Chloride Dis continued 40 MEQ PO DAILY October 03, 2013 12:00am November 27, 2018 3:14pm Start: 01-30-2013 take 1 tablet by dewayne th once daily KLOR-CON M20 20 MEQ CR-TABS One tablet by mouth daily POTASSIUM CHLORIDE DEB CR [id number] Willis Alfred MD Start: 01-30-2013 take 1 tablet by dewayne th once daily KLOR-CON M20 20 MEQ CR-TABS One tablet by mouth daily POTASSIUM CHLORIDE DEB CR [id number] Willis Alfred MD Comment on above: Take 2 tablets by [facility] once daily. predniSONE 20 mg oral tablet (20 sources) Start: 11-18-2024 End: 11-23-2024 take 1 tablet by mouth once daily at mealtime predniSONE (DELTASONE) 20 mg tablet Indications: SOB (shortness of breath) Take 1 tablet by mouth once daily for 5 days. Take daily with food. 5 tablet 11/18/2024 11/23/2024 Active Start: 06-24-2024 End: 06-29-2024 take 1 tablet by mouth once daily at mealtime predniSONE (DELTASONE) 20 mg tablet Indications: SOB (shortness of breath) Take 1 tablet by mouth once daily for 5 days. Take daily with food. 5 tablet 06/24/2024 06/29/2024 Active Start: 06-17-2024 End: 06-22-2024 take 1 tablet by mouth once daily at mealtime predniSONE (DELTASONE) 20 mg tablet Indications: Bronchitis Take 1 tablet by mouth once daily for 5 days. Take daily with food. 5 tablet 06/17/2024 06/22/2024 Active Start: 04-10-2024 End: 04-22-2024 predniSONE (DELTASONE) 10 mg tablet Indications: Uncomplicated asthma, unspecified asthma severity, unspecified whether persistent Take 4 tabs daily x 3 days, then 3 tabs x 3 days, 2 tabs x 3 days, then 1 tab x3 days with food. 30 tablet 04/10/2024 04/22/2024 Active Start: 12-13-2023 End: 12-18-2023 take 2 tablets by mouth once daily predniSONE (DELTASONE) 20 mg tablet Take 2 tablets by mouth once daily for 5 days. 10 tablet 0 12/13/2023 12/18/2023 Active Start: 12-16-2021 End: 12-25-2021 predniSONE (DELTASONE) 10 mg tablet Take 4 tabs daily for 3 days, then 2 tabs daily for 3 days, then 1 tab daily for 3 days with food. 21 tablet 0 12/16/2021 12/25/2021 Active Start: 12-11-2021 End: 12-16-2021 take 2 tablets by mouth once daily predniSONE (DELTASONE) 20 mg tablet Take 2 tablets by mouth once daily for 5 days. 10 tablet 0 12/11/2021 12/16/2021 Active Start: 07-08-2019 End: 12-05-2019 Prednisone Discontinued 0 MG PO DAILY July 08, 2019 2:27pm December 05, 2019 3:36pm STARTED TAPER 07/04/19 Start: 07-08-2019 End: 12-05-2019 Prednisone 10 MG tablets,dos e pack Discontinued 0 mg PO DAILY July 08, 2019 1:00am December 05, 2019 3:36pm STARTED TAPER 07/04/19 Please contact the information source for Taper Schedule details. Start: 07-08-2019 End: 12-05-2019 Prednisone Discontinued 0 MG PO DAILY July 08, 2019 12:00am December 05, 2019 2:36pm STARTED TAPER 07/04/19 Start: 07-08-2019 End: 12-05-2019 Prednisone Discontinued 0 MG PO DAILY July 08, 2019 1:00am December 05, 2019 3:36pm STARTED TAPER 07/04/19 Comment on above: Take 2 tablets by mo uth once daily for 5 days. Take 4 tabs daily fo r 3 days, then 2 tabs daily for 3 days, then 1 tab daily for 3 days with food. tamsulosin hydrochloride 0.4 mg oral capsule (20 sources) alpha-Adrenergic Jacob Start: 04-29-2022 tamsulosin (FLOMAX) 0.4 mg 08/07/2023 Active Start: 10-23-2018 End: 07-26-2021 take 2 capsules by mouth once daily at bedtime tamsulosin ER (FLOMAX) 0.4 mg cap Take 2 capsules by mouth daily at bedtime. 10/23/2018 07/26/2021 Discontinued (Discontinued by another Health Care Provider) Start: 07-27-2018 End: 07-10-2019 take 1 capsule by mouth once daily Tamsulosin 0.4 MG capsule Discontinued 0.4 mg PO DAILY July 27, 2018 1:00am July 10, 2019 1:21pm 60 actuat testosterone 20.25 mg/actuat topical gel (20 sources) Androgen Start: 11-23-2021 testosterone ( ANDROGEL PUMP) 20.25 mg/1.25 gram (1.62 %) transdermal gel APPLY 4 PUMPS TOPICALLY DAILY. 09/22/2022 Active Start: 11-23-2021 Testosterone 2 0.25 mg/1.25 gram (1.62 %) gel in metered-dose pump Active 4 NMA TD DAILY November 23, 2021 12:00am Start: 11-27-2018 End: 11-23-2021 inject 100 mg by intramuscular injection every week Testosterone Cypionate (Depo-Testosterone) 100 mg/mL oil Discontinued 100 mg IM EVERY WEEK November 27, 2018 12:00am November 23, 2021 9:02am pt has injections on Saturdays Start: 10-03-2013 End: 10-04-2013 Testosterone Undecanoate (Av eed) 750 MG/3 ML Ml Discontinued 750 mg IM October 03, 2013 12:00am October 04, 2013 10:18am Start: 09-04-2013 TESTOSTERONE C YPIONATE 100 MG/ML SOLN 100 mg every 1 weeks TESTOSTERONE CYPIONATE [id number] Dyana Alvarez PA-C Start: 09-04-2013 TESTOSTERONE C YPIONATE 100 MG/ML SOLN 150 mg every 2 weeks TESTOSTERONE CYPIONATE [id number] Willis Alfred MD Comment on above: APPLY 4 PUMPS TOPICA LLY DAILY. tiZANidine 4 mg oral tablet (10 sources) Central alpha-2 Adrenergic Agonist Start: tiZANidine (ZANAFLEX) 4 mg tablet Take 4 mg by mouth. 08/28/2024 Active vitamin b12 1 mg oral tablet (20 sources) Vitamin B12 take 1 tablet by mouth once daily cyanocobalamin (VITAMIN B-12) 1,000 mcg tab Take 1,000 mcg by mouth once daily. Active Comment on above: Take 1,000 mcg by mo [facility] once daily. Completed/Discontinued Medications Medication Drug Class(es) Dates Sig (Normalized) Sig (Original) acetaminophen 325 mg oral tablet (16 sources) Start: 07-25-2018 End: 11-27-2018 Acetaminophen 325 MG tablet Discontinued 1000 mg PO Q8H as needed for fever > 100.4 or pain July 25, 2018 1:00am November 27, 2018 3:14pm Start: 07-25-2018 End: 11-27-2018 take 1000 mg by mouth every eight hours Acetaminophen Discontinued 1000 MG PO Q8H July 25, 2018 1:00am November 27, 2018 3:14pm allopurinol 300 mg oral tablet (20 sources) Xanthine Oxidase Inhibitor Start: 07-26-2021 End: 08-16-2024 take 1 tablet by mouth once daily Allopurinol 300 mg tablet Discontinued 300 mg PO DAILY October 20, 2021 12:00am August 16, 2024 11:34am Start: 07-23-2018 End: 11-23-2021 take 1 tablet by mouth once daily Allopurinol 100 MG tablet Discontinued 100 mg PO DAILY July 23, 2018 1:00am November 23, 2021 9:00am Comment on above: Take 1 tablet by dewayne th once daily. For gout. apixaban 5 mg oral tablet (20 sources) Factor Xa Inhibitor Start: 01-23-2023 End: 12-29-2023 take 1 tablet by mouth twice daily Apixaban (Eliquis) 5 mg tablet Discontinued 5 mg PO TWICE A DAY 60 January 30, 2023 4:29pm December 07, 2023 4:33pm Start: 12-15-2022 End: 01-30-2023 take 1 mg by mouth every twelve hours Apixaban (Eliquis) 5 mg tablet Discontinued mg PO Q12H December 15, 2022 12:00am January 30, 2023 4:30pm Start: 04-29-2022 End: 11-07-2022 take 1 tablet by mouth twice daily Apixaban 5 mg tablet Discontinued 5 mg PO TWICE A DAY 180 September 07, 2022 11:41am November 07, 2022 11:18am Comment on above: Take 1 tablet by dewayne th twice daily. atorvastatin 20 mg oral tablet (20 sources) HMG-CoA Reductase Inhibitor Start: End: take 10 mg by mouth at bedtime Atorvastatin 20 mg tablet Discontinued 10 mg PO AT BEDTIME October 19, 2023 4:27pm August 16, 2024 12:01pm Start: 10-19-2023 take 10 mg by mouth at bedtime Atorvastatin Active 10 MG PO AT BEDTIME October 19, 2023 4:27pm Start: 07-10-2019 End: 10-21-2024 take 1 tablet by mouth at bedtime Atorvastatin 20 mg tablet Discontinued 20 mg PO AT BEDTIME April 07, 2023 4:42pm October 19, 2023 4:27pm Start: 08-17-2016 End: 06-09-2017 take 1 tablet by mouth once daily Atorvastatin 10 MG tablet Discontinued 10 mg PO DAILY August 17, 2016 1:00am June 09, 2017 8:43pm Start: 09-18-2012 take 1 tablet by dewayne th once daily ATORVASTATIN CALCIUM 20 MG TABS One tablet by mouth daily ATORVASTATIN CALCIUM [id number] Willis Alfred MD Comment on above: Take 1 tablet by dewayne th daily at bedtime. For cholesterol. benzonatate 100 mg oral capsule (17 sources) Non-narcotic Antitussive Start: 06-13-20 End: 09-24-19 take 2 capsules by mouth every eight hours as needed benzonatate (TESSALON PERLE) 100 mg capsule Take 2 capsules by mouth three times a day as needed. 30 capsule 06/13/2024 09/23/2024 Discontinued Start: 04-10-2024 End: 04-20-2024 take 1 capsule by mouth three times daily as needed benzonatate (TESSALON PERLE) 100 mg capsule Indications: Viral URI with cough Take 1 capsule by mouth three times a day as needed for up to 10 days. 30 capsule 04/10/2024 04/20/2024 Active 24 hr buPROPion hydrochloride 150 mg extended release oral tablet (10 sources) Aminoketone Start: 06-15-2020 End: 11-29-2021 take 1 tablet by mouth once daily buPROPion XL (WELLBUTRIN XL) 150 mg 24 hr tablet Take 1 tablet by mouth once daily. 90 tablet 3 06/15/2020 11/29/2021 Discontinued Start: 02-28-2020 End: 05-01-2020 take 1 tablet by mouth once daily buPROPion XL (WELLBUTRIN XL) 150 mg 24 hr tablet Take 1 tablet by mouth once daily. 30 tablet 2 02/28/2020 05/01/2020 Discontinued Start: 01-08-2015 take 1 tablet by dewayne th once daily WELLBUTRIN SR 150 MG [id number] One tablet by mouth daily BUPROPION HCL [id number] LUIS WallC Start: 01-08-2015 take 1 tablet by dweayne th once daily WELLBUTRIN SR 150 MG [id number] One tablet by mouth daily BUPROPION HCL [id number] Dyana Alvarez PA-C Comment on above: Take 1 tablet by [facility] once daily. celecoxib 200 mg oral capsule (16 sources) Nonsteroidal Anti-inflammatory Drug Start: 021 End: 022 take 1 capsule by mouth once daily Celecoxib (Celebrex) 200 mg capsule Discontinued 200 mg PO DAILY October 01, 2020 12:00am October 20, 2021 8:33am cholecalciferol 0.025 mg oral tablet (20 sources) Vitamin D Start: 023 End: 025 take 1 tablet by mouth once daily Cholecalciferol (Vitamin D3) (Vitamin D3) 25 mcg (1,000 unit) tablet Discontinued 1000 U PO DAILY December 15, 2022 12:00am August 16, 2024 11:35am Start: 05-01-2018 take 1 capsule by [facility] once daily Cholecalciferol, Vitamin D3, (VITAMIN D) 1,000 unit cap Indications: Vitamin D deficiency Take 1 capsule by mouth once daily. 90 capsule 3 05/01/2018 Active Comment on above: Take 1 capsule by [facility] once daily. ciprofloxacin 500 mg oral tablet (20 sources) Quinolone Antimicrobial Start: 12-14-2022 End: 01-23-2023 ciprofloxacin HCl (CIPRO) 500 mg tablet Start: 04-29-2022 End: 08-03-2022 take 1 tablet by mouth twice daily Ciprofloxacin Hcl 250 mg tablet Discontinued 250 mg PO TWICE A DAY April 29, 2022 1:00am August 03, 2022 9:43am x7 days Start: 07-10-2019 End: 12-05-2019 take 1 tablet by mouth twice daily Ciprofloxacin Hcl 500 MG tablet Discontinued 500 mg PO TWICE A DAY July 10, 2019 1:00am December 05, 2019 3:35pm Start: 03-16-2019 End: 06-07-2019 take 1 tablet by mouth twice daily Ciprofloxacin Hcl 500 MG tablet Discontinued 500 mg PO TWICE A DAY 60 March 16, 2019 12:00am June 07, 2019 4:24pm citalopram 10 mg oral tablet (3 sources) Serotonin Reuptake Inhibitor Start: 09-04-2013 take 1 tablet by mouth once daily CITALOPRAM HYDROBROMIDE 10 MG TABS One tablet by mouth daily CITALOPRAM HYDROBROMIDE [id number] Willis Alfred MD colchicine 0.6 mg oral tablet (6 sources) Start: 12-11-2021 take 2 tablets by mouth every hour colchicine 0.6 mg tablet Take 2 tablets by mouth, wait one hour and take the third tablet. 3 tablet 0 12/11/2021 Active Comment on above: Take 2 tablets by mo [facility], wait one hour and take the third tablet. 24 hr desvenlafaxine succinate 25 mg extended release oral tablet (11 sources) Serotonin and Norepinephrine Reuptake Inhibitor Start: 10-04-2024 End: 10-21-2024 take 1 tablet by mouth once daily desvenlafaxine ER (PRISTIQ) 50 mg 24 hr tablet Take 1 tablet by mouth once daily. Patient should start on October 04, 2024. 30 tablet 5 10/04/2024 10/21/2024 Discontinued Start: 10-04-2024 take 1 tablet by dewayne once daily desvenlafaxine ER (PRISTIQ) 50 mg 24 hr tablet Take 1 tablet by mouth once daily. Patient should start on October 04, 2024. 30 tablet 5 10/04/2024 Active Start: 09-23-2024 End: 11-18-2024 take 1 tablet by mouth once daily desvenlafaxine ER (PRISTIQ) 25 mg 24 hr tablet Take 1 tablet by mouth once daily for 7 doses. And then stop. 7 tablet 10/21/2024 11/18/2024 Discontinued (Course of therapy completed) DULoxetine 30 mg delayed release oral capsule (20 sources) Serotonin and Norepinephrine Reuptake Inhibitor Start: 12-05-2019 End: 10-01-2020 Duloxetine 30 mg capsule,delayed release(DR/EC) Discontinued 40 mg PO DAILY December 05, 2019 3:33pm October 01, 2020 3:52pm Start: 12-05-2019 End: 10-01-2020 take 40 mg by mouth once daily Duloxetine Discontinued 40 MG PO DAILY December 05, 2019 3:33pm October 01, 2020 3:52pm Start: 06-07-2019 End: 12-05-2019 take 2 capsules by mouth once daily Duloxetine 30 mg capsule,delayed release(DR/EC) Discontinued 60 mg PO DAILY June 07, 2019 4:24pm December 05, 2019 3:36pm Start: 06-07-2019 End: 12-05-2019 take 60 mg by mouth once daily Duloxetine Discontinued 60 MG PO DAILY June 07, 2019 4:24pm December 05, 2019 3:36pm Start: 10-30-2017 End: 06-07-2019 take 1 capsule by mouth once daily Duloxetine 30 MG capsule Discontinued 30 mg PO DAILY October 30, 2017 12:00am June 07, 2019 4:27pm dutasteride 0.5 mg oral capsule (6 sources) 5-alpha Reductase Inhibitor Start: 07-18-2012 End: 01-08-2015 take 1 tablet by mouth once daily AVODART 0.5 MG CAPS One tablet by mouth daily DUTASTERIDE [id number] Dyana Alvarez PA-C enteric contrast (will be provided with radiology test) (5 sources) Start: 03-08-2024 End: 03-09-2024 enteric contrast (will be provided with radiology test) For CT ABD/PEL W IVCON Routine order Administer, As Directed One Time Only, via Oral, Rectal, both Oral and Rectal, Enteric Tube, Stoma or Indwelling Catheter, Enteric Contrast as designated per enteric contrast guidelines 1 Each 03/08/2024 03/09/2024 Start: 03-08-2024 End: 03-09-2024 enteric contrast (will be pr ovided with radiology test) For CT ABD/PEL W IVCON Routine order Administer, As Directed One Time Only, via Oral, Rectal, both Oral and Rectal, Enteric Tube, Stoma or Indwelling Catheter, Enteric Contrast as designated per enteric contrast guidelines 1 Each 03/08/2024 03/09/2024 Active Start: 03-08-2024 End: 03-08-2024 enteric contrast (will be pr ovided with radiology test) Indications: Diarrhea, unspecified type For CT ABD/PEL W IVCON Routine order Administer, As Directed One Time Only, via Oral, Rectal, both Oral and Rectal, Enteric Tube, Stoma or Indwelling Catheter, Enteric Contrast as designated per enteric contrast guidelines 1 Each 03/08/2024 03/08/2024 Discontinued ertapenem 1000 mg injection (16 sources) Penem Antibacterial Start: 07-25-2018 End: 07-28-2018 Ertapenem 1 GM/10 ML Vial Discontinued 1 g IV EVERY 24 HOURS July 25, 2018 1:00am July 28, 2018 11:33am Fish Oils (6 sources) Start: 07-18-2012 End: 01-30-2013 take 1 tablet by mouth once daily FISH OIL CAPS One tablet by mouth daily OMEGA-3 FATTY ACIDS CAPS [id number] Willis Alfred MD Start: 07-18-2012 take 1 tablet by dewayne th once daily FISH OIL CAPS One tablet by mouth daily OMEGA-3 FATTY ACIDS CAPS [id number] Willis Alfred MD gabapentin 300 mg oral capsule (17 sources) Anti-epileptic Agent Start: 06-27-2023 End: 07-26-2023 gabapentin (NEURONTIN) 300 mg capsule Indications: Fibromyalgia , Spinal stenosis of lumbar region, unspecified whether neurogenic claudication present Take 1 capsule by mouth daily at bedtime for 90 days. For three days and then increase bid. 60 capsule 2 06/27/2023 07/26/2023 Discontinued (Other) Start: 10-30-2017 End: 11-27-2018 take 1 capsule by mouth at bedtime Gabapentin 300 MG capsule Discontinued 300 mg PO AT BEDTIME October 30, 2017 12:00am November 27, 2018 3:11pm glucosamine 1000 mg oral tablet (6 sources) Start: 07-18-2012 End: 12-17-2012 take 1 tablet by mouth once daily GLUCOSAMINE HCL TABS One tablet by mouth daily GLUCOSAMINE HCL TABS Willis Alfred MD hydrocortisone 10 mg/ml / neomycin 3.5 mg/ml / polymyxin b 87106 unt/ml otic solution (14 sources) Aminoglycoside Antibacterial, Polymyxin-class Antibacterial, Corticosteroid Start: 02-12-2022 End: 04-29-2022 Neomycin-Polymyxi n-Hc 3.5-10,000-1 mg/mL-unit/mL-% solution Discontinued 4 NMA RIGHT EAR EVERY 6 HOURS February 12, 2022 12:00am April 29, 2022 11:07am Start: 02-12-2022 End: 04-29-2022 [id number]-Bv Discon tinued 4 DRP RIGHT EAR EVERY 6 HOURS February 12, 2022 12:00am April 29, 2022 11:07am ibuprofen 600 mg oral tablet (16 sources) Nonsteroidal Anti-inflammatory Drug Start: 07-10-2019 End: 10-01-2020 take 1 tablet by mouth every six hours as needed for pain Ibuprofen 600 MG tablet Discontinued 600 mg PO EVERY 6 HOURS NEEDED as needed for Pain Score 1-10 July 10, 2019 1:19pm October 01, 2020 3:52pm iv contrast (will be provided with radiology test) (10 sources) Start: 03-08-2024 End: 03-09-2024 iv contrast (will be provided with radiology test) CT ABD/PEL -Inject, intravenously, once for 1 dose.No IV access, insert saline lock prior to the beginning of sedation, infusion, injection of imaging exam. Discontinue saline lock post exam. If Pt. has a central line or IVAD, may access for administration according to line specific nursing protocol. Once exam is complete flush line and de-access according to line specific nursing protocol in the CT contrast administration guidelines link. 1 Each 03/08/2024 03/09/2024 Start: 03-08-2024 End: 03-09-2024 iv contrast (will be provide d with radiology test) CT ABD/PEL -Inject, intravenously, once for 1 dose.No IV access, insert saline lock prior to the beginning of sedation, infusion, injection of imaging exam. Discontinue saline lock post exam. If Pt. has a central line or IVAD, may access for administration according to line specific nursing protocol. Once exam is complete flush line and de-access according to line specific nursing protocol in the CT contrast administration guidelines link. 1 Each 03/08/2024 03/09/2024 Active Start: 03-08-2024 End: 03-08-2024 iv contrast (will be provide d with radiology test) Indications: Diarrhea, unspecified type CT ABD/PEL -Inject, intravenously, once for 1 dose.No IV access, insert saline lock prior to the beginning of sedation, infusion, injection of imaging exam. Discontinue saline lock post exam. If Pt. has a central line or IVAD, may access for administration according to line specific nursing protocol. Once exam is complete flush line and de-access according to line specific nursing protocol in the CT contrast administration guidelines link. 1 Each 03/08/2024 03/08/2024 Discontinued Start: 12-13-2023 End: 12-14-2023 iv contrast (will be provide d with radiology test) CT Chest PE -Inject, intravenously, once for 1 dose.No IV access, insert saline lock prior to the beginning of sedation, infusion, injection of imaging exam. Discontinue saline lock post exam. If Pt. has a central line or IVAD, may access for administration according to line specific nursing protocol. Once exam is complete flush line and de-access according to line specific nursing protocol in the CT contrast administration guidelines link. 1 Each 0 12/13/2023 12/14/2023 Active Start: 12-13-2023 End: 12-14-2023 iv contrast (will be provide d with radiology test) Indications: Chest pain on breathing CT Chest PE -Inject, intravenously, once for 1 dose.No IV access, insert saline lock prior to the beginning of sedation, infusion, injection of imaging exam. Discontinue saline lock post exam. If Pt. has a central line or IVAD, may access for administration according to line specific nursing protocol. Once exam is complete flush line and de-access according to line specific nursing protocol in the CT contrast administration guidelines link. 1 Each 0 12/13/2023 12/14/2023 Active Start: 12-13-2023 End: 12-14-2023 inject 1 dose intravenously once iv contrast (will be provided with radiology test) CTA CHEST - No IV access, insert saline lock prior to the sedation, infusion, injection for imaging exam. Discontinue saline lock post exam. If Pt. has a central line or IVAD, may access for administration according to line specific nursing protocol. Once exam is complete flush line and de-access according to line specific nursing protocol in the CT contrast administration guidelines link. 1 Each 0 12/13/2023 12/14/2023 Active lisinopril 10 mg oral tablet (15 sources) Angiotensin Converting Enzyme Inhibitor Start: 05-28-2013 End: 01-08-2015 take 1 tablet by mouth once daily LISINOPRIL 10 MG TABS One tablet by mouth daily (STOP) LISINOPRIL [id number] Dyana Alvarez PA-C Start: 07-10-2012 End: 07-18-2012 take 1 tablet by mouth once daily LISINOPRIL 10 MG TABS One tablet by mouth daily LISINOPRIL [id number] Eleonora Herrera RN meclizine hydrochloride 25 mg oral tablet (19 sources) Antiemetic Start: 04-25-2024 End: 09-23-2024 take 1 tablet by mouth every eight hours as needed for dizziness and dizziness meclizine (ANTIVERT) 25 mg tab Indications: Dizziness Take 1 tablet by mouth three times a day as needed (dizziness). 30 tablet 1 04/25/2024 09/23/2024 Discontinued meloxicam 15 mg oral tablet (20 sources) Nonsteroidal Anti-inflammatory Drug Start: 04-28-2020 End: 11-29-2021 take 1 tablet by mouth once daily at mealtime meloxicam (MOBIC) 15 mg tablet Indications: Pain of right heel , Numbness and tingling of both feet , Numbness and tingling of both lower extremities Take 1 tablet by mouth once daily. Take with food. 04/28/2020 11/29/2021 Discontinued Start: 08-17-2016 End: 07-28-2018 take 1 tablet by mouth once daily Meloxicam 7.5 MG tablet Discontinued 7.5 mg PO DAILY August 17, 2016 1:00am July 28, 2018 11:32am Comment on above: Take 1 tablet by dewayne th once daily. Take with food. methylPREDNISolone (3 sources) Corticosteroid Start: 11-29-2021 End: 12-05-2021 methylPREDNISolone (MEDROL, RAQUEL,) 4 mg Dose-Pack Indications: Chest pain, unspecified type Follow dosing instructions, take with food. 1 Package 11/29/2021 12/05/2021 Start: 11-29-2021 End: 12-05-2021 methylPREDNISolone (MEDROL, RAQUEL,) 4 mg Dose-Pack Indications: Chest pain, unspecified type Follow dosing instructions, take with food. 1 Package 0 11/29/2021 12/05/2021 Active Comment on above: Follow dosing instru ctions, take with food. metoprolol tartrate 25 mg oral tablet (20 sources) beta-Adrenergic Jacob Start: End: take 1 tablet by mouth twice daily Metoprolol Tartrate 25 mg tablet Discontinued 25 mg PO TWICE A DAY 180 May 30, 2018 4:30pm November 27, 2018 3:11pm montelukast 10 mg oral tablet (6 sources) Leukotriene Receptor Antagonist Start: End: take 1 tablet by mouth once daily SINGULAIR 10 MG TABS One tablet by mouth daily MONTELUKAST SODIUM [id number] Eleonora Herrera RN MULTIPLE VITAMINS-MINERALS (1 source) Start: take 1 tablet by mouth once daily CENTRUM SILVER TABS One tablet by mouth daily MULTIPLE VITAMINS-MINERALS [id number] Willis Alfred MD MULTIPLE VITAMINS-MINERALS (2 sources) Start: take 1 tablet by mouth once daily CENTRUM SILVER TABS One tablet by mouth daily MULTIPLE VITAMINS-MINERALS [id number] Willis Alfred MD Multivitamin,Tx-Iron- Minerals 1 TABLET tablet (1 source) Start: 014 End: take 1 tablet by mouth once daily Multivitamin,Tx-Iron- Minerals 1 TABLET tablet Discontinued 1 {tbl} PO DAILY December 10, 2013 12:00am October 28, 2024 10:35am nitrofurantoin, macrocrystals 25 mg / nitrofurantoin, monohydrate 75 mg oral capsule (13 sources) Nitrofuran Antibacterial Start: 023 End: take 1 capsule by mouth twice daily at mealtime Nitrofurantoin Monohyd/M-Cryst (Macrobid) 100 mg capsule Discontinued 100 mg PO TWICE A DAY 14 7 December 14, 2022 12:00am December 16, 2022 11:07am must administer with a meal/food Comment on above: Take 100 mg by mouth twice daily. For seven days for UTI nitroglycerin 0.4 mg sublingual tablet (6 sources) Nitrate Vasodilator Start: NITROSTAT 0.4 MG SUBL 1 tablet under tongue every 5 min up to 3 X NITROGLYCERIN [id number] Willis Alfred MD nystatin 809293 unt/ml oral suspension (16 sources) Polyene Antifungal Start: End: take 998414 [IU] by mouth every six hours Nystatin 500,000 UNIT/5 ML Udc Discontinued 406503 U PO EVERY 6 HOURS 1 7 July 28, 2018 1:00am August 03, 2018 1:00am August 04, 2018 1:12am OMEGA-3 FATTY ACIDS CPDR (1 source) Start: take 1 tablet by mouth once daily OMEGA 3 CPDR One tablet by mouth daily OMEGA-3 FATTY ACIDS CPDR [id number] Dyana Alvarez PA-C OMEGA-3 FATTY ACIDS CPDR (2 sources) Start: take 1 tablet by mouth once daily OMEGA 3 CPDR One tablet by mouth daily OMEGA-3 FATTY ACIDS CPDR [id number] Dyana Alvarez PA-C 24 hr oxybutynin chloride 5 mg extended release oral tablet (8 sources) Cholinergic Muscarinic Antagonist Start: End: take 1 tablet by mouth once daily oxybutynin XL (DITROPAN XL) 5 mg 24 hr tablet Take 1 tablet by mouth once daily. 5 10/17/2018 11/29/2021 Discontinued Comment on above: Take 1 tablet by dewayne once daily. pantoprazole 40 mg delayed release oral tablet (16 sources) Proton Pump Inhibitor Start: End: take 1 tablet by mouth once daily Pantoprazole 40 mg tablet,delayed release (DR/EC) Discontinued 40 mg PO DAILY 90 November 27, 2018 12:00am June 07, 2019 4:25pm prasugrel 10 mg oral tablet (20 sources) [id number] Platelet Inhibitor Start: End: take 1 tablet by mouth once daily Prasugrel Hcl 10 MG tablet Discontinued 10 mg PO DAILY October 03, 2013 12:00am October 04, 2013 10:17am RANOLAZINE (6 sources) Anti-anginal Start: End: take 1 tablet by mouth twice daily RANEXA 500 MG [id number] One tablet by mouth twice daily RANOLAZINE [id number] Rubina Barger RN Start: 12-27-2012 take 1 tablet by dewayne th twice daily RANEXA 500 MG [id number] One tablet by mouth twice daily RANOLAZINE [id number] Rubina Barger RN Start: 12-27-2012 End: 12-28-2012 take 1 tablet by mouth twice daily RANEXA 500 MG [id number] One tablet by mouth twice daily RANOLAZINE [id number] Rubina Barger RN rivaroxaban 20 mg oral tablet (20 sources) Factor Xa Inhibitor Start: 06-07-2019 End: 12-05-2019 take 1 tablet by mouth once daily Rivaroxaban 20 MG tablet Discontinued 20 mg PO DAILY July 10, 2019 1:00am December 05, 2019 3:52pm Start: 03-16-2019 End: 06-07-2019 take 1 tablet by mouth once daily Rivaroxaban 15 MG tablet Discontinued 15 mg PO DAILY March 16, 2019 12:00am June 07, 2019 4:26pm Start: 09-10-2018 End: 11-27-2018 take 1 tablet by mouth twice daily Rivaroxaban 15 MG tablet Discontinued 15 mg PO TWICE A DAY September 10, 2018 12:00am November 27, 2018 3:12pm Start: 10-30-2013 End: 12-11-2013 take 1 tablet by mouth once daily XARELTO 20 MG TABS One tablet by mouth daily RIVAROXABAN [id number] Rubina Barger RN sertraline 50 mg oral tablet (20 sources) Serotonin Reuptake Inhibitor Start: 01-23-2023 End: 01-23-2024 take 1 tablet by mouth once daily sertraline (ZOLOFT) 50 mg tablet Indications: Adjustment disorder with anxious mood Take 1 tablet by mouth once daily. 30 tablet 11 01/23/2023 06/27/2023 Discontinued Start: 12-15-2022 End: 10-16-2023 Sertraline 50 mg tablet Disc ontinued 25 mg PO Q24H December 15, 2022 12:00am October 16, 2023 2:32pm Start: 12-15-2022 End: 10-16-2023 take 25 mg by mouth every twenty-four hours Sertraline Discontinued 25 MG PO Q24H December 15, 2022 12:00am October 16, 2023 2:32pm Start: 10-25-2022 End: 10-25-2023 take 1.5 tablets by mouth once daily sertraline (ZOLOFT) 50 mg tablet Indications: Adjustment disorder with anxious mood Take 1.5 tablets by mouth once daily. 45 tablet 11 10/25/2022 01/23/2023 Discontinued Start: 09-22-2022 End: 10-25-2022 take 0.5 tablet by mouth once daily, then take 1 tablet by mouth once daily sertraline (ZOLOFT) 50 mg tablet Indications: Adjustment disorder with anxious mood Take 1/2 tab once a day orally for one week then 1 tab once a day 30 tablet 11 09/22/2022 10/25/2022 Discontinued Comment on above: Take 1/2 tab once a day orally for one week then 1 tab once a day Take 1.5 tablets by mouth once daily. Take 1/2 tab once a day orally for one week then 1 tab once a day Take 1.5 tablets by mouth once daily. Take 1 tablet by dewayne th once daily. valACYclovir 1000 mg oral tablet (16 sources) Herpesvirus Nucleoside Analog DNA Polymerase Inhibitor, Herpes Simplex Virus Nucleoside Analog DNA Polymerase Inhibitor, Herpes Zoster Virus Nucleoside Analog DNA Polymerase Inhibitor Start: 04-12-2021 End: 04-19-2021 Valacyclovir 1 gram tablet Discontinued 1000 mg PO Q8H 06 01April 12, 2021 12:00am April 18, 2021 12:00am April 19, 2021 12:01am Start: 04-12-2021 End: 04-19-2021 take 1000 mg by mouth every eight hours Valacyclovir Discontinued 1000 MG PO Q8H 06 01April 12, 2021 12:00am April 19, 2021 12:01am Problems Active Problems Problem Classification Problem Date Documented Da te Episodic/Chronic Acquired foot deformities (2 sources) Talipes planus; Translations: [Flat foot [pes planus] (acquired), right foot] Episodic Adjustment disorders (4 sources) Adjustment disorder with anxious mood; Translations: [Adjustment disorder with anxiety] Chronic Anxiety disorders (5 sources) Mixed anxiety and depressive disorder; Translations: [Other specified anxiety disorders] Onset: 3 Chronic Attention-deficit, conduct, and disruptive behavior disorders (2 sources) Attention deficit hyperactivity disorder, combined type; Translations: [Attention-deficit hyperactivity disorder, combined type] 10-25-2023 Chronic Attention-deficit, conduct, and disruptive behavior disorders (1 source) Attention-deficit hyperactivity disorder, combined type; Translations: [ADHD (attention deficit hyperactivity disorder), combined type] Onset: 4 Chronic Cardiac dysrhythmias (20 sources) Atrial flutter; Translations: [Unspecified atrial flutter] Onset: 3 Chronic Coagulation and hemorrhagic disorders (20 sources) Thrombocytopenic disorder; Translations: [Thrombocytopenia, unspecified] Onset: 4 Resolved: 4 12-15-2022 Chronic Conditions associated with dizziness or vertigo (5 sources) Dizziness; Translations: [Lightheadedness] Onset: 7 08-17-2016 Episodic Conduction disorders (20 sources) First degree atrioventricular block; Translations: [Atrioventricular block, first degree] Onset: 4 07-05-2023 Chronic Coronary atherosclerosis and other heart disease (20 sources) Coronary arteriosclerosis; Translations: [Angina pectoris] Onset: 3 Resolved: 5 07-10-2012 Chronic Comment on above: PTCA/stent to LAD Diseases of white blood cells (1 source) Leukocytosis; Translations: [Elevated white blood cell count, unspecified] Chronic Disorders of lipid metabolism (20 sources) Hyperlipidemia; Translations: [Hyperlipidemia, unspecified] Onset: 6 09-19-2013 Chronic Disorders usually diagnosed in infancy, childhood, or adolescence (4 sources) Attention deficit hyperactivity disorder, predominantly inattentive type; Translations: [Other specified behavioral and emotional disorders with onset usually occurring in childhood and adolescence] Onset: 5 09-23-2024 Chronic Esophageal disorders (20 sources) Gastroesophageal reflux disease; Translations: [Gastro-esophageal reflux disease without esophagitis] Onset: 1 06-18-2011 Chronic Gastrointestinal hemorrhage (2 sources) Acute lower gastrointestinal hemorrhage; Translations: [Gastrointestinal hemorrhage, unspecified] Onset: 5 10-28-2024 Episodic Hyperplasia of prostate (20 sources) Benign prostatic hyperplasia; Translations: [Benign prostatic hyperplasia without lower urinary tract symptoms] Onset: 4 02-29-2020 Chronic Osteoarthritis (1 source) Primary osteoarthritis of ankle; Translations: [Primary osteoarthritis, right ankle and foot] Chronic Other bone disease and musculoskeletal deformities (1 source) Disorder of bone; Translations: [Disorder of bone, unspecified] Episodic Other connective tissue disease (1 source) Muscle pain; Translations: [Myalgia, unspecified site] Episodic Other connective tissue disease (1 source) Pain of left heel; Translations: [Pain in left foot] 04-03-2023 Episodic Other connective tissue disease (1 source) Pain in right heel; Translations: [Pain in right foot] 04-28-2020 Episodic Other ear and sense organ disorders (1 source) Otalgia, right ear; Translations: [Otalgia, unspecified] Episodic Other endocrine disorders (20 sources) Adrenal mass; Translations: [Other specified disorders of adrenal gland] Onset: 6 06-15-2021 Chronic Other endocrine disorders (1 source) Testicular hypofunction; Translations: [Testicular hypofunction] Onset: 5 Chronic Other endocrine disorders (5 sources) Endocrine disorder, unspecified; Translations: [Unspecified endocrine disorder] Episodic Other eye disorders (1 source) Pain in eye; Translations: [Ocular pain, right eye] Episodic Other gastrointestinal disorders (1 source) Acute constipation; Translations: [Constipation, unspecified] 09-05-2023 Episodic Other gastrointestinal disorders (2 sources) Diarrhea; Translations: [Diarrhea, unspecified] 03-08-2024 Episodic Other lower respiratory disease (16 sources) Dyspnea on exertion; Translations: [Dyspnea, unspecified] 02-28-2020 Episodic Other lower respiratory disease (8 sources) Dyspnea, unspecified; Translations: [Other respiratory abnormalities] Episodic Other lower respiratory disease (2 sources) Chest pain on breathing; Translations: [Chest pain on breathing] 12-13-2023 Episodic Other lower respiratory disease (3 sources) Cough; Translations: [Acute cough] 04-25-2024 Episodic Other lower respiratory disease (1 source) Hemoptysis; Translations: [Hemoptysis] 06-24-2024 Episodic Other male genital disorders (20 sources) Induratio penis plastica; Translations: [Induration penis plastica] Onset: 5 11-05-2014 Chronic Other nervous system disorders (1 source) Other chronic pain; Translations: [Chronic RLQ pain] Onset: 4 Chronic Other non-traumatic joint disorders (20 sources) Polyarthropathy; Translations: [Polyarthritis, unspecified] Onset: 8 09-14-2017 Chronic Other nutritional; endocrine; and metabolic disorders (15 sources) Body mass index (BMI) 35.0-35.9, adult; Translations: [Body mass index (BMI) 36.0-36.9, adult] Onset: 4 Resolved: 6 01-08-2015 Chronic Other nutritional; endocrine; and metabolic disorders (6 sources) Body mass index (BMI) 36.0-36.9, adult; Translations: [Body mass index (BMI) 36.0-36.9, adult] Onset: 4 Resolved: 5 09-04-2013 Chronic Other nutritional; endocrine; and metabolic disorders (16 sources) Obesity; Translations: [Obesity, unspecified] 02-29-2020 Chronic Other nutritional; endocrine; and metabolic disorders (3 sources) Morbid (severe) obesity due to excess calories; Translations: [Morbid obesity] 07-05-2023 Chronic Other upper respiratory infections (5 sources) Bacterial sinusitis; Translations: [Chronic sinusitis, unspecified] Chronic Peripheral and visceral atherosclerosis (20 sources) Intermittent claudication; Translations: [Peripheral vascular disease, unspecified] Onset: 3 Resolved: 5 01-08-2015 Chronic Residual codes; unclassified (19 sources) Obstructive sleep apnea syndrome; Translations: [Obstructive sleep apnea (adult) (pediatric)] Onset: 5 01-08-2015 Chronic Residual codes; unclassified (20 sources) Sleep apnea; Translations: [Sleep apnea, unspecified] Onset: 4 12-25-2013 Chronic Residual codes; unclassified (16 sources) Postprocedural state finding; Translations: [Presence of other specified functional implants] Onset: 1 10-20-2021 Chronic Residual codes; unclassified (4 sources) Obstructive sleep apnea (adult) (pediatric); Translations: [Obstructive sleep apnea (adult)(pediatric)] Onset: 4 07-05-2023 Chronic Residual codes; unclassified (9 sources) Other specified health status; Translations: [Failure of outpatient treatment] 12-15-2022 Episodic Residual codes; unclassified (1 source) Pain; Translations: [Pain, unspecified] 09-10-2021 Episodic Substance-related disorders (1 source) Nicotine dependence, chewing tobacco, uncomplicated; Translations: [Nicotine dependence, chewing tobacco, uncomplicated] Onset: 8 Chronic Unclassified (2 sources) Long-term drug therapy; Translations: [Other penitentiary (current) drug therapy] Onset: 3 12-17-2012 Unclassified (1 source) Acute cough; Translations: [Acute cough] Onset: 4 Viral infection (1 source) COVID-19; Translations: [COVID-19] Onset: 4 Past or Other Problems Problem Classification Problem Date Documented Da te Episodic/Chronic Abdominal hernia (20 sources) Diaphragmatic hernia; Translations: [Diaphragmatic hernia without obstruction or gangrene] Onset: 05-24-2011 06-18-2011 Episodic Abdominal pain (10 sources) Left lower quadrant pain; Translations: [Left lower quadrant pain] Onset: 03-08-2024 03-08-2024 Episodic Asthma (20 sources) Asthma; Translations: [Unspecified asthma, uncomplicated] Onset: 05-06-2016 Resolved: 03-08-2024 06-15-2021 Chronic Cardiac dysrhythmias (20 sources) Palpitations; Translations: [Palpitations] Onset: 09-30-2005 Resolved: 07-13-2018 07-13-2018 Episodic Chronic obstructive pulmonary disease and bronchiectasis (5 sources) Bronchitis; Translations: [Bronchitis, not specified as acute or chronic] Onset: 06-17-2024 12-29-2023 Episodic Coronary atherosclerosis and other heart disease (20 sources) Coronary angioplasty status; Translations: [Presence of coronary angioplasty implant and graft] Onset: 06-19-2012 09-18-2012 Episodic Comment on above: PTCA/stent to LAD Diabetes mellitus without complication (5 sources) Hyperglycemia; Translations: [Hyperglycemia, unspecified] Onset: 07-08-2024 09-07-2023 Episodic Essential hypertension (20 sources) Hypertensive disorder; Translations: [Essential (primary) hypertension] Onset: 03-20-2012 Resolved: 07-26-2023 07-10-2012 Chronic Fever of unknown origin (20 sources) Fever; Translations: [Fever, unspecified] Onset: 07-26-2023 Resolved: 07-26-2023 06-06-2019 Episodic Fluid and electrolyte disorders (20 sources) Hypokalemia; Translations: [Hypokalemia] Onset: 09-13-2017 09-13-2017 Episodic Headache; including migraine (20 sources) Pain in face; Translations: [Facial pain] Onset: 07-26-2023 Resolved: 07-26-2023 Episodic Immunizations and screening for infectious disease (2 sources) Vaccination needed; Translations: [Encounter for immunization] Onset: 11-29-2023 11-29-2023 Episodic Inflammatory conditions of male genital organs (20 sources) Acute prostatitis; Translations: [Acute prostatitis] Onset: 07-26-2023 Resolved: 07-26-2023 03-17-2019 Episodic Malaise and fatigue (20 sources) Fatigue; Translations: [Other fatigue] Onset: 10-30-2013 Resolved: 07-26-2023 10-30-2013 Episodic Miscellaneous mental health disorders (20 sources) Confusional state; 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] Onset: 07-26-2023 Resolved: 07-26-2023 07-26-2023 Chronic Nonspecific chest pain (20 sources) Chest pain, unspecified; Translations: [Chest pain] Onset: 07-10-2012 Resolved: 07-26-2023 07-10-2012 Episodic Other aftercare (1 source) Other equipment operator intermodal yard (current) drug therapy; Translations: [Other penitentiary (current) drug therapy] Onset: 12-17-2012 12-17-2012 Episodic Other aftercare (7 sources) Patient encounter status; Translations: [half-way (current) use of insulin] Onset: 12-17-2012 Resolved: 07-26-2023 07-26-2023 Episodic Other aftercare (20 sources) Long-term current use of insulin; Translations: [ad terminal makeup 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] Onset: 12-17-2012 Resolved: 07-26-2023 07-26-2023 Episodic Other and unspecified benign neoplasm (20 sources) History of polyp of colon; Translations: [Personal history of colonic polyps] Onset: 12-01-2022 12-01-2022 Episodic Other circulatory disease (20 sources) History of transient ischemic attack; Translations: [Personal history of transient ischemic attack (TIA), and 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 residual deficits] Onset: 07-05-2023 02-29-2020 Episodic Other disorders of stomach and duodenum (20 sources) Intestinal metaplasia of gastric mucosa; Translations: [Gastric intestinal metaplasia] Onset: 12-01-2022 12-01-2022 Episodic Other ear and sense organ disorders (20 sources) Otitis externa; Translations: [Unspecified otitis externa, right ear] Onset: 07-26-2023 Resolved: 07-26-2023 02-20-2022 Chronic Other endocrine disorders (20 sources) Hypotestosteronism; Translations: [Endocrine disorder, unspecified] Onset: 07-26-2023 06-06-2019 Episodic Other gastrointestinal disorders (1 source) Diarrhea, unspecified; Translations: [Diarrhea, unspecified type] Onset: 03-08-2024 Episodic Other lower respiratory disease (20 sources) Dyspnea; Translations: [Dyspnea, unspecified] Onset: 02-08-2007 Resolved: 07-13-2018 07-18-2012 Episodic Other lower respiratory disease (20 sources) Nodule of lung; Translations: [Solitary pulmonary nodule] Onset: 05-06-2016 01-21-2019 Episodic Other lower respiratory disease (2 sources) Chronic cough; Translations: [Chronic cough] Onset: 12-13-2023 12-13-2023 Episodic Other lower respiratory disease (20 sources) H/O: asthma; Translations: [Personal history of other diseases of the respiratory system] Onset: 03-08-2024 03-08-2024 Episodic Other lower respiratory disease (1 source) Other forms of dyspnea; Translations: [Other forms of dyspnea] Onset: 12-20-2023 Episodic Other lower respiratory disease (1 source) Hemoptysis; Translations: [Hemoptysis] Onset: 06-24-2024 Episodic Other lower respiratory disease (1 source) Shortness of breath; Translations: [SOB (shortness of breath)] Onset: 06-24-2024 Episodic Other male genital disorders (20 sources) Secondary erectile dysfunction; Translations: [Male erectile dysfunction, unspecified] Onset: 11-05-2014 Resolved: 07-26-2023 11-05-2014 Chronic Other nervous system disorders (20 sources) Peripheral nerve disease ; Translations: [Polyneuropathy, unspecified] Onset: 07-05-2023 Resolved: 07-26-2023 07-26-2023 Chronic Other nutritional; endocrine; and metabolic disorders (20 sources) Body mass index 40+ - severely obese; Translations: [Morbid (severe) obesity due to excess calories] Onset: 07-16-2023 Resolved: 07-26-2023 07-05-2023 Chronic Other nutritional; endocrine; and metabolic disorders (20 sources) Morbid obesity; Translations: [Morbid (severe) obesity due to excess calories] Onset: 07-05-2023 Resolved: 07-26-2023 07-26-2023 Chronic Other screening for suspected conditions (not mental disorders or infectious disease) (20 sources) Cardiovascular stress test abnormal; Translations: [Abnormal result of cardiovascular function study, unspecified] Onset: 08-21-2012 Resolved: 07-26-2023 08-21-2012 Episodic Other screening for suspected conditions (not mental disorders or infectious disease) (20 sources) Abnormal result of cardiovascular function study, unspecified; Translations: [Decreased testosterone level ] Onset: 12-04-2013 Resolved: 07-26-2023 12-04-2013 Episodic Other skin disorders (20 sources) Hyperhidrosis; Translations: [Generalized hyperhidrosis] Onset: 12-25-2013 12-25-2013 Episodic Other upper respiratory infections (2 sources) Viral upper respiratory tract infection; Translations: [Acute upper respiratory infection, unspecified] Onset: 04-10-2024 04-10-2024 Episodic Pneumonia (except that caused by tuberculosis or sexually transmitted disease) (4 sources) Bacterial pneumonia; Translations: [Unspecified bacterial pneumonia] Onset: 06-24-2024 06-24-2024 Episodic Pulmonary heart disease (20 sources) Pulmonary embolism; Translations: [Other pulmonary embolism without acute cor pulmonale] Onset: 10-11-2013 Resolved: 10-25-2022 01-21-2019 Episodic Comment on above: History of provoked embolism with hx PICC and travel per report. Residual codes; unclassified (5 sources) Family history [...] exposure to asbestos] Onset: 03-20-2012 03-20-2012 Episodic Residual codes; unclassified (20 sources) Postprocedural state finding; Translations: [Other specified postprocedural states] Onset: 07-26-2023 Resolved: 07-26-2023 07-26-2023 Episodic Screening and history of mental health and substance abuse codes (20 sources) Ex-tobacco user; Translations: [Personal history of nicotine dependence] Onset: 07-05-2023 02-29-2020 Episodic Spondylosis; intervertebral disc disorders; other back problems (20 sources) Spinal stenosis of lumbar region; Translations: [Spinal stenosis, lumbar region with neurogenic claudication] Onset: 06-22-2020 06-22-2020 Episodic Syncope (5 sources) Near syncope; Translations: [Syncope and collapse] Onset: 12-13-2023 10-16-2023 Episodic Unclassified (20 sources) No response to treatment; Translations: [No response to treatment] Onset: 07-26-2023 Resolved: 07-26-2023 07-26-2023 Urinary tract infections (20 sources) Urinary tract infectious disease; Translations: [Urinary tract infection, site not specified] Onset: 12-16-2022 Episodic Viral infection (20 sources) Disease caused by 2019-nCoV; Translations: [COVID-19] Onset: 01-09-2024 Resolved: 03-08-2024 01-09-2024 Episodic Results Test Name Value Interpretation Reference Range Facility CNOVon 11-18-2024 CNOV Office Visit (FAMPWS ) LAZARO GARZON ([id number]) 1955 M Date Time Provider Department 11/18/24 11:20 AM SUSAN KERR During your visit today, we recorded the following information about you: Temperature Pulse Respiration Blood pressure 99.2 degrees 72/minute 16/minute 158/80 Susan Kerr APRN.[employer] 11/18/2024 11:56 AM Addendum - Get the chest xray. - Begin doxycycline: take one dose twice daily for 10 days. - Begin prednisone: take one tablet once a day for 5 days. - Continue using your albuterol inhaler and Claritin as you have been. Let us know if no improvement/worsening. Susan Kerr APRN.[employer] 11/18/2024 12:38 PM Signed Madelyn is a 69 year old male who presents today with: Lazaro is a 69-year-old male with a history of asthma, presenting with dyspnea, fatigue, and back pain. HISTORY OF PRESENT ILLNESS: Dyspnea: - Dyspnea on exertion x2 weeks. - Notable episodes include walking up a steep hill, resulting in near-syncope, tachycardia (150's per watch) and facial numbness. - Denies chest pain during these episodes. - Reports difficulty breathing with deep inhalation. - Using albuterol inhaler; asthma has been acting up quite a bit. 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 Cheema. - Unable to maintain usual walking pace - Denies recent illness, fever, or chills. Pneumonia: - History of recurrent pneumonia, most recently in May. - Pt reports that symptoms similar to previous pneumonia episodes. - Taking Claritin and inhaler for symptom relief. - Reports a persistent headache. PAST MEDICAL HISTORY: PAST MEDICAL HISTORY Diagnosis [...] Right 1988 LAPS SURG CHOLECYSTECTOMY W/CHOLANGIOGRAPHY 2004 [facility] - Dr. 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 EPIGASTRIC HERNIA,REDUC 07/19/2023 umbilical TONSILLECTOMY PRIMARY/SECONDARY Tonsillectomy ALLERGIES Sulfa (Sulfonamide Antibiotics) MEDICATIONS Current Outpatient Medications Medication Sig doxycycline (VIBRA-TABS) 100 mg tablet Take 1 tablet by mouth two times a day for 10 days. predniSONE (DELTASONE) 20 mg tablet Take 1 tablet by mouth once daily for 5 days. Take daily with food. finasteride (PROSCAR) 5 mg tablet Take 5 mg by mouth once daily. atomoxetine (STRATTERA) 40 mg capsule Take 1 capsule by mouth once daily. For one week and then back to 80 mg a day. Start once the pristiq is done. esomeprazole (NEXIUM) 40 mg capsule Take 1 capsule by mouth two times a day before meals. losartan (COZAAR) 100 mg tablet Take 1 tablet by mouth once daily. tiZANidine (ZANAFLEX) 4 mg tablet Take 4 mg by mouth. potassium chloride (K-TAB) 10 mEq tablet Take 2 tablets by mouth once daily. albuterol HFA (PROAIR HFA) 90 mcg/actuation inhaler Inhale 2 Puffs as instructed every 4 hours as needed (FOR COUGH OR WHEEZE). aspirin, enteric coated (ASPIRIN, ENTERIC COATED) 81 mg EC tablet Take 1 tablet by mouth once daily. tamsulosin (FLOMAX) 0.4 mg amLODIPine (NORVASC) 5 mg tablet Take 1 tablet by mouth once daily. testosterone (ANDROGEL PUMP) 20.25 mg/1.25 gram (1.62 %) transdermal gel APPLY 4 PUMPS TOPICALLY DAILY. oxyCODONE-acetaminophen 5-325 mg (PERCOCET) as needed. CPAP Requires replacement machine at same settings. Cholecalciferol, Vitamin D3, (VITAMIN D) 1,000 unit cap Take 1 capsule by mouth once daily. cyanocobalamin (VITAMIN B-12) 1,000 mcg tab Take 1,000 mcg by mouth once daily. MULTIVITAMIN TAB T (more content not included)... Normal [facility] XR CHEST 2V FRONTAL/LATon XR CHEST 2V FRONTAL/LAT * * *Final Report* * * DATE OF EXAM: Nov 18 2024 1:05PM WOX [id number] - XR CHEST 2V FRONTAL/LAT / PROCEDURE REASON: Acute cough * * * * Physician Interpretation * * * * EXAMINATION: CHEST RADIOGRAPH (2 VIEW FRONTAL and LATERAL) CLINICAL HISTORY: Acute cough MQ: XC2_6 EXAM DATE/TIME: 11/18/2024 1:05 PM COMPARISON: Chest x-ray on 07/08/2024 RESULT: Lines, tubes, and devices: None. Lungs and pleura: No consolidation. No lung mass. No pleural effusion. No pneumothorax. Cardiomediastinal silhouette: Normal cardiomediastinal silhouette. Bones and soft tissues: There are degenerative changes in the spine. IMPRESSION: No acute radiographic abnormality. Mobile Pet Groomer: OSMANI Transcribe Date/Time: Nov 18 2024 1:08P Dictated by : LETTY THOMAS MD This examination was interpreted and the report reviewed and electronically signed by: LETTY THOMAS MD on Nov 18 2024 1:09PM EST [id number] Normal [facility] XR Chest PA and Lateralon IMPRESSION: No acute radiographic abnormality. Mobile Pet Groomer: OSMANI Transcribe Date/Time: Nov 18 2024 1:08P Dictated by : LETTY THOMAS MD This examination was interpreted and the report reviewed and electronically signed by: LETTY THOMAS MD on Nov 18 2024 1:09PM [facility] DIVISION OF RADIOLOGY * * *Final Report* * * DATE OF EXAM: Nov 18 2024 1:05PM WOX [id number] - XR CHEST 2V FRONTAL/LAT / PROCEDURE REASON: Acute cough * * * * Physician Interpretation * * * * EXAMINATION: CHEST RADIOGRAPH (2 VIEW FRONTAL & LATERAL) CLINICAL HISTORY: Acute cough MQ: XC2_6 EXAM DATE/TIME: 11/18/2024 1:05 PM COMPARISON: Chest x-ray on 07/08/2024 RESULT: Lines, tubes, and devices: None. Lungs and pleura: No consolidation. No lung mass. No pleural effusion. No pneumothorax. Cardiomediastinal silhouette: Normal cardiomediastinal silhouette. Bones and soft tissues: There are degenerative changes in the spine. DIVISION OF RADIOLOGY Provider, Tavo Patino [facility] - 11/18/2024 * * *Final Report* * * DATE OF EXAM: Nov 18 2024 1:05PM WOX [id number] - XR CHEST 2V FRONTAL/LAT / PROCEDURE REASON: Acute cough * * * * Physician Interpretation * * * * EXAMINATION: CHEST RADIOGRAPH (2 VIEW FRONTAL & LATERAL) CLINICAL HISTORY: Acute cough MQ: XC2_6 EXAM DATE/TIME: 11/18/2024 1:05 PM COMPARISON: Chest x-ray on 07/08/2024 RESULT: Lines, tubes, and devices: None. Lungs and pleura: No consolidation. No lung mass. No pleural effusion. No pneumothorax. Cardiomediastinal silhouette: Normal cardiomediastinal silhouette. Bones and soft tissues: There are degenerative changes in the spine. IMPRESSION IMPRESSION: No acute radiographic abnormality. Mobile Pet Groomer: PSCB Transcribe Date/Time: Nov 18 2024 1:08P Dictated by : LETTY THOMAS MD This examination was interpreted and the report reviewed and electronically signed by: LETTY THOMAS MD on Nov 18 2024 1:09PM [facility] Radiology Study observation (narrative) [facility] XR Chest PA and LateralOrder ed By: [facility] Provider on 11-18-2024 [facility] Abdomen/Pelvis W IV Cont ONL Yon 10-28-2024 Abdomen/Pelvis W IV Cont ONLY [facility] [address] [place] [address] Abdomen/Pelvis W IV Cont ONLY MR#: [id number] Acct: [id number] Name: LAZARO GARZON Rep #: [id number] : 1955 M 69 From: Paul perdomo MD PCP: Dr. Jagjit Cheema MD Status: REG ER Study: Abdomen/Pelvis W IV Cont ONLY Date of Exam: Exam# [id number] Ordering Dr: Robby Mclaughlin DO PROCEDURE: ABDOMEN/PELVIS W IV CONT ONLY 10/28/2024 REASON FOR EXAM: ABDOMINAL PAIN Rectal bleed. TECHNIQUE: Abdomen and pelvis CT with intravenous contrast. Coronal and Sagittal reconstruction series were provided. PATIENT PREPARATION: Per protocol ORAL CONTRAST TYPE: None. CONTRAST: 100 cc of Isovue-300 One or more dose reduction techniques were used (e.g., Automated exposure control, adjustment of the mA and/or kV according to patient size, use of iterative reconstruction technique. RADIATION DOSE SUMMARY: CTDlvol: 15.8 mGy DLP: 1379.88 mGycm COMPARISON: Comparison is made with prior study dated December 14, 2022. FINDINGS: Lung bases: Mild residual linear atelectasis at the lung bases. Coronary artery calcification. Liver: Diffuse fatty infiltration. Stable 1.2 cm hypodensity in the right lobe of the liver suggestive of a small cyst. Gallbladder: The patient is status post cholecystectomy. Spleen: Borderline splenomegaly. Pancreas: Normal size without evidence of mass surrounding inflammation or ductal dilation. Adrenals: Stable 1.6 cm hypodense nodule in the crux of the left adrenal gland. Kidneys: There is a 5.5 cm by 5.5 cm cyst in the lower pole of the right kidney. Bladder: Penile implant with pump is seen. This is unchanged. The prostate is enlarged measuring 5.6 cm by 5.1 cm. This causes indentation of the bladder base. Bowel: Colonic diverticulosis without diverticulitis. Appendix: Unremarkable Lymph nodes: No suspicious lymph node enlargement. Vasculature: Scattered calcific plaques of the abdominal aorta. Peritoneum / Retroperitoneum: Unremarkable Bones: Degenerative changes of the spine. CT/Abdomen/Pelvis W IV Cont ONLY IMPRESSION: Fatty infiltration of the liver. Stable small hypodensity in the right lobe of the liver. Status post cholecystectomy. Stable right renal cyst. Stable left adrenal nodule suggestive of an adenoma. Sigmoid diverticulosis. OVERALL FINAL ASSESSMENT: . LI-RADS is not meant to be used in patients <18 years or patients with cirrhosis due to congenital hepatic fibrosis or due to vascular disorders, because these patients have a lower chance of developing HCC. Reading Location: [id number] CC: Dr. Robby Mclaughlin DO; Dr. Jagjit Cheema MD Mobile Pet G[employer]er: Signed Normal [facility] Absolute lymphocyte countOrd ered By: Robby Mclaughlin on 10-28-2024 Lymphocytes Auto (Unsp spec) [#/Vol] 0.92 10*3/uL 0.83-4.51 [facility] Absolute neutrophil countOrd ered By: Robby Mclaughlin on 10-28-2024 Neutrophils (Bld) [#/Vol] 2.8 10*3/uL 2.0-7.7 [facility] Anion gap in Serum or Plasma Ordered By: Robby Mclaughlin on 10-28-2024 Anion gap [Moles/Vol] 9 mmol/L 5-15 [facility] Automated lymphocyte count a s percentage of total leukocytesOrdered By: Robby Mclaughlin on 10-28-2024 Lymphocytes/100 WBC Auto (Unsp spec) 22.3 % 19-41 [facility] BUN/creatinine ratioOrdered By: Robby Mclaughlin on 10-28-2024 Urea nitrogen/Creatinine [Mass ratio] 15.9 mg/mg 10- [facility] Basic Metabolic Profile (BMP )on 10-28-2024 BUN/CRE 15.9 RATIO Normal - [facility] Comment on above: Performed By: #### L 100.0100, L501.2450, L500.2500, L500.3400 #### [facility] [address] [place], [address] Calcium [Mass/Vol] 8.4 mg/dL Normal 7.6-11.0 [facility] Comment on above: Performed By: #### L 100.0100, L501.2450, L500.2500, L500.3400 #### [facility] [address] [place], [address] Chloride [Moles/Vol] 108 mmol/L Normal 98-108 [facility] Comment on above: Performed By: #### L 100.0100, L501.2450, L500.2500, L500.3400 #### [facility] [address] [place], [address] CO2 [Moles/Vol] 24.2 mmol/L Normal 21.0-32.0 [facility] Comment on above: Performed By: #### L 100.0100, L501.2450, L500.2500, L500.3400 #### [facility] [address] [place], [address] Creatinine [Mass/Vol] 0.93 mg/dL Normal 0.70-1.20 [facility] Comment on above: Performed By: #### L 100.0100, L501.2450, L500.2500, L500.3400 #### [facility] [address] [place], [address] ECRCL 125.79 ml/min Normal 50-250 [facility] Comment on above: Performed By: #### L 100.0100, L501.2450, L500.2500, L500.3400 #### [facility] [address] [place], [address] GAP 9 Normal 5-15 [facility] Comment on above: Performed By: #### L 100.0100, L501.2450, L500.2500, L500.3400 #### [facility] [address] [place], [address] GFR/1.73 sq M.predicted among non-blacks MDRD (S/P/Bld) [Vol rate/Area] 90 mL/min/{1.73_m2} Normal >60 [facility] Comment on above: Result Comment: mL/m in/1.73m2 CKD-EPI Creatinine Equation (2020) Performed By: #### L 100.0100, L501.2450, L500.2500, L500.3400 #### [facility] [address] [place], [address] Glucose [Mass/Vol] 119 mg/dL High 70-99 [facility] Comment on above: Performed By: #### L 100.0100, L501.2450, L500.2500, L500.3400 #### [facility] [address] [place], [address] Potassium [Moles/Vol] 3.7 mmol/L Normal 3.3-5.1 [facility] Comment on above: Performed By: #### L 100.0100, L501.2450, L500.2500, L500.3400 #### [facility] [address] [place], [address] Sodium [Moles/Vol] 141 mmol/L Normal 133-145 [facility] Comment on above: Performed By: #### L 100.0100, L501.2450, L500.2500, L500.3400 #### [facility] [address] [place], [address] Urea nitrogen [Mass/Vol] 15 mg/dL Normal 4-19 [facility] Comment on above: Performed By: #### L 100.0100, L501.2450, L500.2500, L500.3400 #### [facility] [address] [place], [address] Basophil percentageOrdered B y: Robby Mclaughlin on 10-28-2024 Basophils/100 WBC (Bld) 0.5 % 0-1 [facility] Bilirubin Test strip Ql (U)O rdered By: Robby Mclaughlin on 10-28-2024 Bilirubin Ql (U) Negative Negative [facility] Bilirubin directOrdered By: Robby Mclaughlin on 10-28-2024 Bilirubin.direct [Mass/Vol] 0.25 mg/dL 0.00-0.30 [facility] Bilirubin, totalOrdered By: Robby Mclaughlin on 10-28-2024 Bilirubin [Mass/Vol] 0.62 mg/dL 0.00-1.30 [facility] CBC W/Diff, Automatedon 10-17 Absolute Lymph 0.92 X10 3/uL Normal 0.83-4.51 [facility] Comment on above: Performed By: #### L 100.0100, L501.2450, L500.2500, L500.3400 #### [facility] [address] [place], [address] Absolute Neut 2.8 X10 3/uL Normal 2.0-7.7 [facility] Comment on above: Performed By: #### L 100.0100, L501.2450, L500.2500, L500.3400 #### [facility] [address] [place], [address] Basophils/100 WBC (Bld) 0.5 % Normal 0-1 [facility] Comment on above: Performed By: #### L 100.0100, L501.2450, L500.2500, L500.3400 #### [facility] [address] [place], [address] Eosinophils/100 WBC (Bld) 1.2 % Normal 0-5 [facility] Comment on above: Performed By: #### L 100.0100, L501.2450, L500.2500, L500.3400 #### [facility] [address] [place], [address] Erythrocyte distribution width (RBC) [Ratio] 14.2 % Normal 11.6-14.6 [facility] Comment on above: Performed By: #### L 100.0100, L501.2450, L500.2500, L500.3400 #### [facility] [address] [place], [address] Hematocrit (Bld) [Volume fraction] 40.7 % Normal 40-54 [facility] Comment on above: Performed By: #### L 100.0100, L501.2450, L500.2500, L500.3400 #### [facility] [address] [place], [address] Hemoglobin (Bld) [Mass/Vol] 14.1 g/dL Normal 13.0-16.5 [facility] Comment on above: Performed By: #### L 100.0100, L501.2450, L500.2500, L500.3400 #### [facility] [address] [place], [address] IG% 0.200 Normal 0.0-0.9 [facility] Comment on above: Result Comment: IG% - Immature Granulocytes (promyelocytes, myelocytes and metamyelocytes) > 1% indicates that a LEFT SHIFT is Present. Performed By: #### L 100.0100, L501.2450, L500.2500, L500.3400 #### [facility] [address] [place], [address] Lymphocytes/100 WBC (Bld) 22.3 % Normal 19-41 [facility] Comment on above: Performed By: #### L 100.0100, L501.2450, L500.2500, L500.3400 #### [facility] [address] [place], [address] MCH (RBC) [Entitic mass] 29.7 pg Normal 27.0-32.0 [facility] Comment on above: Performed By: #### L 100.0100, L501.2450, L500.2500, L500.3400 #### [facility] [address] [place], [address] MCHC (RBC) [Mass/Vol] 34.6 g/dL Normal 32-36 [facility] Comment on above: Performed By: #### L 100.0100, L501.2450, L500.2500, L500.3400 #### [facility] [address] [place], [address] MCV (RBC) [Entitic vol] 85.7 fL Normal 80-94 [facility] Comment on above: Performed By: #### L 100.0100, L501.2450, L500.2500, L500.3400 #### [facility] [address] [place], [address] Monocytes/100 WBC (Bld) 8.3 % Normal 0-10 [facility] Comment on above: Performed By: #### L 100.0100, L501.2450, L500.2500, L500.3400 #### [facility] [address] [place], [address] Neutrophils/100 WBC (Bld) 67.5 % Normal 47-70 [facility] Comment on above: Performed By: #### L 100.0100, L501.2450, L500.2500, L500.3400 #### [facility] [address] [place], [address] Nucleated RBC (Bld) [#/Vol] 0 10*3/uL Normal 0-5 [facility] Comment on above: Performed By: #### L 100.0100, L501.2450, L500.2500, L500.3400 #### [facility] [address] [place], [address] Platelet mean volume (Bld) [Entitic vol] 10.7 fL Normal 6.2-12.0 [facility] Comment on above: Performed By: #### L 100.0100, L501.2450, L500.2500, L500.3400 #### [facility] [address] [place], [address] Platelets (Bld) [#/Vol] 147 10*3/uL Low 150-450 [facility] Comment on above: Performed By: #### L 100.0100, L501.2450, L500.2500, L500.3400 #### [facility] [address] [place], [address] RBC (Bld) [#/Vol] 4.75 10*6/uL Normal 4.6-6.2 [facility] Comment on above: Performed By: #### L 100.0100, L501.2450, L500.2500, L500.3400 #### [facility] [address] [place], [address] RDW SD 43.7 fl Normal 35.1-43.9 [facility] Comment on above: Performed By: #### L 100.0100, L501.2450, L500.2500, L500.3400 #### [facility] [address] [place], [address] WBC (Bld) [#/Vol] 4.1 10*3/uL Low 4.4-11.0 [facility] Comment on above: Performed By: #### L 100.0100, L501.2450, L500.2500, L500.3400 #### [facility] [address] [place], [address] Carbon dioxide, total [Moles /volume] in Central venous bloodOrdered By: Robby Mclaughlin on 10-28-2024 CO2 [Moles/Vol] 24.2 mmol/L 21.0-32.0 [facility] Chloride assayOrdered By: Babak Mclaughlin on 10-28-2024 Chloride [Moles/Vol] 108 mmol/L 98-108 [facility] Emergency Department Summary on 10-28-2024 Emergency Department Summary [facility] Medical Records Department [address] [place] [address] Emergency Department Summary 10/28/24 MR#: [id number] Acct: [id number] Name: LAZARO GARZON Rep #: [id number] : 1955 69 From: Robby Mclaughlin DO PCP: Dr. Jagjit Cheema MD Status:DEP ER Location: ED HPI HPI - GI History of Present Illness Chief Complaint: GI Bleed Informant: patient Narrative Narrative: 69-year-old male presenting to the emergency room with rectal bleeding and fatigue. Patient states that is not uncommon for him to have bright red blood per rectum as he has a history of hemorrhoids and anal fissures. He states that last evening he had a large amount of blood in the toilet as well as abdominal cramping. He states he feels generally fatigued. He notes the stool itself was formed and brown in nature. He is able to pull up recent blood work from September 17 that shows a hemoglobin of 15.6 and a creatinine of 1. Patient states that he called his primary care doctor's office who advised him to come to the emergency. He notes he had a colonoscopy in the past at [facility]. He states he has a history of diverticulosis. He is not currently on blood thinners does take baby aspirin. [facility] Medical History History of cardioversion First degree heart block Dyslipidemia Morbid obesity with BMI of 40.0-44.9, adult Paroxysmal atrial flutter Coronary artery disease Thrombocytopenia Failure of outpatient treatment Complicated urinary tract infection Dyspnea Atrial flutter History of shingles Fatigue History of pulmonary embolism Former tobacco use History of TIA (transient ischemic attack) Chest pain Rectal bleeding Pure hypercholesterolemia Acute pyelonephritis Prostate enlargement UTI (urinary tract infection) Dyspnea on exertion Claudication Fibromyalgia BPH (benign prostatic hyperplasia) GERD (gastroesophageal reflux disease) Essential hypertension Atherosclerotic heart disease of [place] coronary artery without angina pectoris Confusion Unstable angina HTN (hypertension) Abnormal myocardial perfusion study H/O percutaneous transluminal coronary angioplasty Abnormal stress test DEENA (obstructive sleep apnea) Pulmonary embolism Obesity Testosterone deficiency Home Medications ???Medication ???Instructions ???Recorded ???Last Taken ???Type albuterol sulfate 90 mcg/actuation 1 - 2 puff inhalation Q6H PRN 02/08/20 History aerosol inhaler Asthma testosterone 4 pump transdermal DAILY low 11/2310/28/24 History testosterone tamsulosin 0.4 mg capsule 0.4 mg PO DAILY prostate 04/29/22 10/28/24 History aspirin 81 mg tablet,delayed 81 mg PO DAILY 07/05/23 Unknown Hi story release amlodipine 5 mg tablet 10 mg (2 x 5 mg) PO DAILY htn #90 04/08/24 10/28/24 Rx tabs atomoxetine 40 mg capsule 40 mg PO DAILY 10/28/24 10/28/24 H istory esomeprazole magnesium 40 mg 40 mg PO BID 10/28/24 10/28/24 His tory capsule,delayed release finasteride 5 mg tablet 5 mg PO DAILY 10/28/24 10/28/24 Hi story losartan 100 mg tablet 100 mg PO DAILY 10/28/24 10/28/24 History multivitamin (Daily Multi-Vitamin 1 tab PO DAILY 10/28/24 10/28/24 History tablet) oxycodone-acetaminophen 5 mg-325 1 tab PO DAILY PRN pain 10/28/24 U nknown History mg tablet potassium chloride 10 mEq 20 meq PO DAILY 10/28/24 10/28/24 History tablet,extended release Allergy/AdvReac Type Severity Reaction Status Date / Time Sulfa (Sulfonamide Allergy Unknown Verified 08/16/24 10:34 Antibiotics) Family History Mother CAD (coronary artery disease) Hypertension Hx of CABG Father Hypertension Myocardial infarction Grandfather Myocardial infarction paternal Grandmother Cancer pancreatic CA Grandfather CAD (coronary artery disease) Surgical History Spinal cord stimulator status ( 05/2021) History of back surgery History of transurethral resection of prostate History of arthroscopy of right knee History of laparoscopic cholecystectomy Presence of coronary angioplasty implant and graft ( 08/2012) Presence of stent in coronary artery ( 08/2012) History of left heart catheterization (LHC) History of PTCA ( 08/2012) History of tonsillectomy and adenoidectomy History of repair of rotator cuff Social History Smoking Status: Former smoker quit date: 06/19/94 pack-years: 42 how long ago did patient quit smokin second hand exposure: No alcohol intake: current alcohol intake frequency: holidays/special occasions only Alcohol type: beer substance use type: does not use caffeine: Yes (more content not included)... Normal [facility] Eosinophil percentageOrdered By: Robby Mclaughlin on 10-28-2024 Eosinophils/100 WBC (Bld) 1.2 % 0-5 [facility] Erythrocyte distribution wid th ratioOrdered By: Robby Mclaughlin on 10-28-2024 Erythrocyte distribution width (RBC) [Ratio] 14.2 % 11.6-14.6 [facility] Erythrocyte distribution wid th standard deviationOrdered By: Robby Mclaughlin on 10-28-2024 Erythrocyte distribution width (RBC) [Ratio] 43.7 fl 35.1-43.9 [facility] Glomerular filtration rate ( GFR) estimation/1.73 sq m using serum, plasma, or whole bOrdered By: Robby Mclaughlin on 10-28-2024 GFR/1.73 sq M.predicted among non-blacks MDRD (S/P/Bld) [Vol rate/Area] 90 mL/min/{1.73_m2} >60 [facility] Comment on above: mL/min/1.73m2 CKD-EP I Creatinine Equation (2020) Hematocrit Auto (Bld) [Volum e fraction]Ordered By: Robby Mclaughlin on 10-28-2024 Hematocrit (Bld) [Volume fraction] 40.7 % 40-54 [facility] Hemoglobin measurementOrdere d By: Robby Mclaughlin on 10-28-2024 Hemoglobin (Bld) [Mass/Vol] 14.1 g/dL 13.0-16.5 [facility] Immature granulocytes/100 WB C Auto (Bld)Ordered By: Robby Mclaughlin on 10-28-2024 Immature granulocytes/100 WBC (Bld) 0.200 % 0.0-0.9 [facility] Comment on above: IG% - Immature Granu locytes (promyelocytes, myelocytes and metamyelocytes) > 1% indicates that a LEFT SHIFT is Present. Ketones Test strip Ql (U)Ord ered By: Robby Mclaughlin on 10-28-2024 Ketones Ql (U) Negative Negative [facility] - Chemistry and C hemistry - challengeOrdered By: Robby Mclaughlin on 10-28-2024 AST [Catalytic activity/Vol] 30 U/L <38 [facility] Lipaseon 10-28-2024 Lipase [Catalytic activity/Vol] 33 U/L Normal 13-75 [facility] Comment on above: Result Comment: Godwin marquez note: LIPASE revised reference range effective 22. New Lipase methodology. Expected to produce lower values than the previous assay method. NEW Reference Range: 13 - 75 U/L Performed By: #### L 100.0100, L501.2450, L500.2500, L500.3400 ####[facility] [address] [place], [address] Lipase measurementOrdered By : Robby Mclaughlin on 10-28-2024 Lipase [Catalytic activity/Vol] 33 U/L 13-75 [facility] Comment on above: Please note:LIPASE r evised reference range effective 22. New Lipase methodology. Expected to produce lower values than the previous assay method. NEW Reference Range: 13 - 75 U/L Liver Profileon 10-28-2024 Albumin [Mass/Vol] 4.1 g/dL Normal 3.4-4.8 [facility] Comment on above: Performed By: #### L 100.0100, L501.2450, L500.2500, L500.3400 #### [facility] [address] [place], [address] ALK PHOS 67 U/L Normal 40-129 [facility] Comment on above: Performed By: #### L 100.0100, L501.2450, L500.2500, L500.3400 #### [facility] [address] [place], [address] ALT [Catalytic activity/Vol] 36 U/L Normal <=46 [facility] Comment on above: Performed By: #### L 100.0100, L501.2450, L500.2500, L500.3400 #### [facility] [address] [place], [address] AST [Catalytic activity/Vol] 30 U/L Normal <=37 [facility] Comment on above: Performed By: #### L 100.0100, L501.2450, L500.2500, L500.3400 #### [facility] [address] [place], [address] Bilirubin [Mass/Vol] 0.62 mg/dL Normal 0.00-1.30 [facility] Comment on above: Performed By: #### L 100.0100, L501.2450, L500.2500, L500.3400 #### [facility] [address] [place], [address] Bilirubin.direct [Mass/Vol] 0.25 mg/dL Normal 0.00-0.30 [facility] Comment on above: Performed By: #### L 100.0100, L501.2450, L500.2500, L500.3400 #### [facility] [address] [place], [address] Globulin (S) [Mass/Vol] 2.5 g/dL Normal 2.2-4.2 [facility] Comment on above: Performed By: #### L 100.0100, L501.2450, L500.2500, L500.3400 #### [facility] [address] [place], [address] T PROT 6.6 g/dL Normal 5.9-8.4 [facility] Comment on above: Performed By: #### L 100.0100, L501.2450, L500.2500, L500.3400 #### [facility] [address] [place], [address] MCV (mean corpuscular volume ) determinationOrdered By: Robby Mclaughlin on 10-28-2024 MCV (RBC) [Entitic vol] 85.7 fL 80-94 [facility] Mean corpuscular hemoglobin (MCH) determinationOrdered By: Robby Mclaughlin on 10-28-2024 MCH (RBC) [Entitic mass] 29.7 pg 27.0-32.0 [facility] Mean corpuscular hemoglobin concentration (MCHC) determinationOrdered By: Robby Mclaughlin on 10-28-2024 MCHC (RBC) [Mass/Vol] 34.6 g/dL 32-36 [facility] Mean platelet volume determi nationOrdered By: Robby Mclaughlin on 10-28-2024 Platelet mean volume (Bld) [Entitic vol] 10.7 fL 6.2-12.0 [facility] Microscopic analysis of urin e for red blood cells (RBC)Ordered By: Robby Mclaughlin on 10-28-2024 Microscopic analysis of urine for red blood cells (RBC) 0 SEEN /hpf 0-5 [facility] Monocyte percentageOrdered B y: Robby Mclaughlin on 10-28-2024 Monocytes/100 WBC (Bld) 8.3 % 0-10 [facility] Mucus LM Ql (Urine sed)Order ed By: Robby Mclaughlin on 10-28-2024 Mucus Ql (Urine sed) 0 SEEN /hpf [facility] Neutrophil percentageOrdered By: Robby Mclaughlin on 10-28-2024 Neutrophils/100 WBC (Bld) 67.5 % 47-70 [facility] Nitrite Test strip Ql (U)Ord ered By: Robby Mclaughlin on 10-28-2024 Nitrite Ql (U) Negative Negative [facility] Nucleated red blood cell per centageOrdered By: Robby Mclaughlin on 10-28-2024 Nucleated RBC/100 WBC (Bld) [Ratio] 0 % 0-5 [facility] Platelet countOrdered By: Babak Mclaughlin on 10-28-2024 Platelets (Bld) [#/Vol] 147 10*3/uL Low 150-450 [facility] Potassium measurement (mass/ volume)Ordered By: Robby Mclaughlin on 10-28-2024 Potassium (Unsp spec) [Mass/Vol] 3.7 mmol/L 3.3-5.1 [facility] Protein Test strip Ql (U)Ord ered By: Robby Mclaughlin on 10-28-2024 Protein Ql (U) 15 mg/dl High Negative [facility] RBC Auto (Bld) [#/Vol]Ordere d By: Robby Mclaughlin on 10-28-2024 RBC (Bld) [#/Vol] 4.75 10*6/uL 4.6-6.2 [facility] Serum creatinine measurement (mass/volume)Ordered By: Robby Mclaughlin on 10-28-2024 Creatinine [Mass/Vol] 0.93 mg/dL 0.70-1.20 [facility] Serum globulin measurementOr dered By: Robby Mclaughlin on 10-28-2024 Globulin (S) [Mass/Vol] 2.5 g/dL 2.2-4.2 [facility] Serum glucose measurement (m ass/volume)Ordered By: Robby Mclaughlin on 10-28-2024 Glucose [Mass/Vol] 119 mg/dL High 70-99 [facility] Serum or plasma alanine fuchs otransferase (ALT) measurementOrdered By: Robby Mclaughlin on 10-28-2024 ALT [Catalytic activity/Vol] 36 U/L <47 [facility] Serum or plasma albumin peterson urement (mass/volume)Ordered By: Robby Mclaughlin on 10-28-2024 Albumin [Mass/Vol] 4.1 g/dL 3.4-4.8 [facility] Serum or plasma alkaline miki sphatase measurementOrdered By: Robby Mclaughlin on 10-28-2024 ALP [Catalytic activity/Vol] 67 U/L 40-129 [facility] Serum or plasma calcium peterson urement (mass/volume)Ordered By: Robby Mclaughlin on 10-28-2024 Calcium [Mass/Vol] 8.4 mg/dL 7.6-11.0 [facility] Serum or plasma urea nitroge n measurement (mass/volume)Ordered By: Robby Mclaughlin on 10-28-2024 Urea nitrogen [Mass/Vol] 15 mg/dL 4-19 [facility] Sodium levelOrdered By: Gerald Mclaughlin on 10-28-2024 Sodium [Moles/Vol] 141 mmol/L 133-145 [facility] Squamous epithelial cells de tection in urine sediment by light microscopyOrdered By: Robby Mclaughlin on 10-28-2024 Epithelial cells.squamous LM Ql (Urine sed) 0-5 SEEN /hpf 0-5 [facility] Total proteinOrdered By: Ramsey Mclaughlin on 10-28-2024 Protein [Mass/Vol] 6.6 g/dL 5.9-8.4 [facility] Urinalysis, Completeon 10-28 EPI,SQUAMOUS 0-5 SEEN Normal 0-5 [facility] Comment on above: Order Comment: LUCILLE CTOR TO SPECIFY Performed By: #### L 400.0001 ####[facility] [address] [place], [address] BACTERIA 0 SEEN Normal None Seen [facility] Comment on above: Order Comment: LUCILLE CTOR TO SPECIFY Performed By: #### L 400.0001 ####[facility] [address] [place], [address] Mucus Ql (Urine sed) 0 SEEN Normal [facility] Comment on above: Order Comment: LUCILLE CTOR TO SPECIFY Performed By: #### L 400.0001 ####[facility] [address] [place], [address] RBC 0 SEEN Normal 0-5 [facility] Comment on above: Order Comment: LUCILLE CTOR TO SPECIFY Performed By: #### L 400.0001 ####[facility] [address] [place], [address] WBC 0 SEEN Normal 0-5 [facility] Comment on above: Order Comment: LUCILLE CTOR TO SPECIFY Performed By: #### L 400.0001 ####[facility] [address] [place], [address] Urine clarityOrdered By: Ramsey Mclaughlin on 10-28-2024 Clarity (U) Clear Clear [facility] Urine color determinationOrd ered By: Robby Mclaughlin on 10-28-2024 Color (U) Yellow Yellow [facility] Urine glucose detectionOrder ed By: Robby Mclaughlin on 10-28-2024 Glucose Ql (U) Normal mg/dl Normal [facility] Urine leukocyte esterase det ection by dipstickOrdered By: Robby Mclaughlin on 10-28-2024 Leukocyte esterase Test strip Ql (U) Negative Negative [facility] Urine pHOrdered By: Robby woodard on 10-28-2024 pH (U) 7.0 [pH] 5.0 - 8.0 [facility] Urine sediment bacteria coun t by microscopy (number/high power field)Ordered By: Robby Mclaughlin on 10-28-2024 Bacteria LM.HPF (Urine sed) [#/Area] 0 /[HPF] None Seen [facility] Urine specific gravity measu rementOrdered By: Robby Mclaughlin on 10-28-2024 Specific gravity (U) [Rel density] 1.010 1.002-1.03 0 [facility] Urine urobilinogen measureme ntOrdered By: Robby Mclaughlin on 10-28-2024 Urobilinogen Ql (U) Normal mg/dl Normal [facility] White blood cell (WBC) count Ordered By: Robby Mclaughlin on 10-28-2024 WBC (Bld) [#/Vol] 4.1 10*3/uL Low 4.4-11.0 [facility] White blood cell countOrdere d By: Robby Mclaughlin on 10-28-2024 White blood cell count 0 SEEN /hpf 0-5 [facility] CNOVon 10-21-2024 CNOV Office Visit (FAMPWS ) LAZARO GARZON ([id number]) 1955 M Date Time Provider Department 10/21/24 9:00 AM JAGJIT CHEEMA During your visit today, we recorded the following information about you: Pulse Blood pressure Weight Height 78/minute 138/70 152 kg 1.956 m Jagjit Cheema MD 10/21/2024 9:26 AM Signed Patient presents with: Follow Up HPI: Patient presents today for office visit for follow up. We tapered and stopped straterra and began pristiq. Takes the edge off but feels more foggy. In hind sight he feels the strattera was better. No suicidal ideation. Declines counseling Sleeping is up and down. Platelets are stable. Will follow twice a year. Note was copied and pasted, without alteration from lastov: Asked him to come back because he wrote admitting to worsening depression symptoms. Cries frequently. Not sleeping well. Some issues with ruminating over things. Increased appetite. No suicidal ideation. Not a great support system. Has done counseling before. Bp is up again today. No chest pain or shortness of breath. Latest Ref Rng 09/17/2024 10/18/2024 WBC 3.70 - 11.00 k/uL 4.43 RBC 4.20 - 6.00 m/uL 5.46 Hemoglobin 13.0 - 17.0 g/dL 15.6 Hematocrit 39.0 - 51.0 % 46.8 MCV 80.0 - 100.0 fL 85.7 MCH 26.0 - 34.0 pg 28.6 MCHC 30.5 - 36.0 g/dL 33.3 RDW-CV 11.5 - 15.0 % 13.4 Platelet Count 150 - 400 k/uL 143 (L) 136 (L) MPV 9.0 - 12.7 fL 11.7 Neut% % 68.2 Abs Neut (ANC) 1.45 - 7.50 k/uL 3.02 Lymph% % 20.5 Abs Lymph 1.00 - 4.00 k/uL 0.91 (L) [place]% % 9.0 Abs [place] <0.87 k/uL 0.40 Eosin% % 1.4 Abs Eosin <0.46 k/uL 0.06 Baso% % 0.7 Abs Baso <0.11 k/uL 0.03 Immature Gran % % 0.2 IMMATURE GRANS (ABS) <0.10 k/uL <0.03 NRBC /100 WBC 0.0 Absolute nRBC <0.01 k/uL <0.01 DTYPE Auto Protein, Total 6.3 - 8.0 g/dL 7.4 Albumin 3.9 - 4.9 g/dL 4.4 Calcium 8.5 - 10.2 mg/dL 9.7 Bilirubin, Total 0.2 - 1.3 mg/dL 1.0 Alkaline Phosphatase 38 - 113 U/L 71 AST 14 - 40 U/L 25 ALT 10 - 54 U/L 31 Glucose 74 - 99 mg/dL 117 (H) BUN 9 - 24 mg/dL 12 Creatinine 0.73 - 1.22 mg/dL 1.00 Sodium 136 - 144 mmol/L 141 Potassium 3.7 - 5.1 mmol/L 4.1 Chloride 98 - 107 mmol/L 104 CO2 22 - 30 mmol/L 24 Anion Gap 8 - 15 mmol/L 13 eGFR >=60 mL/min/1.73m? 83 Cholesterol, Total <200 mg/dL 134 Triglyceride <150 mg/dL 292 (H) HDL Cholesterol >39 mg/dL 30 (L) Non HDL Cholesterol <130 mg/dL 104 Fasting Time hrs 12 VLDL Cholesterol <30 mg/dL 58 (H) TC:HDL Ratio <5.10 4.47 LDL Cholesterol, Calculated <100 mg/dL 46 LDL:HDL Ratio <2.54 1.53 WSR 0 - 15 mm/hr 16 (H) Legend: (L) Low (H) High MEDICATIONS: Current Outpatient Medications Medication Sig finasteride (PROSCAR) 5 mg tablet Take 5 mg by mouth once daily. esomeprazole (NEXIUM) 40 mg capsule Take 1 capsule by mouth two times a day before meals. desvenlafaxine ER (PRISTIQ) 50 mg 24 hr tablet Take 1 tablet by mouth once daily. Patient should start on October 04, 2024. atomoxetine (STRATTERA) 40 mg capsule Take 1 capsule by mouth once daily. Then stop losartan (COZAAR) 100 mg tablet Take 1 tablet by mouth once daily. tiZANidine (ZANAFLEX) 4 mg tablet Take 4 mg by mouth. potassium chloride (K-TAB) 10 mEq tablet Take 2 tablets by mouth once daily. albuterol HFA (PROAIR HFA) 90 mcg/actuation inhaler Inhale 2 Puffs as instructed every 4 hours as needed (FOR COUGH OR WHEEZE). aspirin, enteric coated (ASPIRIN, ENTERIC COATED) 81 mg EC tablet Take 1 tablet by mouth once daily. tamsulosin (FLOMAX) 0.4 mg amLODIPine (NORVASC) 5 mg tablet Take 1 tablet by mouth once daily. testosterone (ANDROGEL PUMP) 20.25 mg/1.25 gram (1.62 %) transdermal gel APPLY 4 PUMPS TOPICALLY DAILY. oxyCODONE-acetaminophen 5-325 mg (PERCOCET) as needed. CPAP Requires replacement machine at same settings. [...] history of colonic polyps 2004 polyps Pulmonary embolis (more content not included)... Normal [facility] Platelets Auto (Bld) [#/Vol] on 10-18-2024 Platelets (Bld) [#/Vol] 136 10*3/uL Low 150-400 [facility] Comment on above: Order Comment: Speci men Type: BLOOD SPECIMENOrdering Facility: [facility] Address: [address] [place] [address] Performed By: #### 7 77-3 ####[facility] [id number] [place] [address] [place] Wade 09-27-2024 ROSITAN Telephone (INTMWS) DURANLAZARO ([id number]) 1955 M Date Time Provider Department 09/27/24 JAGJIT CHEEMA INTSincereWS During your visit today, we recorded the following information about you: Milka Sandra LPN 09/27/2024 9:41 AM Signed Rec'd covermymeds PA for desvenlafaxine succinate ER 25mg. The info we have is not PA is not needed for the medicine. This is a qty issue. Did review with the pharmacy too. Please sent new for 25mg daily for a week. They a new rx for the 50mg daily. Unless you specifically want 25mg one twice daily(will complete PA) Did pend both rx. Please review if correct. Jagjit Cheema MD 09/27/2024 9:44 AM Signed Rx sent Allergies As of Date: 09/27/2024 Noted Allergy Reaction SULFA (SULFONAMIDE ANTIBIOTICS) 03/10/2005 2 - Rash Date Reviewed: 09/23/2024 Reviewed by: Brandie Lange LPN - Fully Assessed Reason for Visit: Medication Problem [65] Visit Diagnoses:Attention deficit disorder, unspecified type [F98.8] Anxiety with depression [F41.8] Order(s):desvenlafaxine ER (PRISTIQ) 25 mg 24 hr tabletTake 1 tablet by mouth once daily. For one week and then increase to 50 mg a day afterDisp: 7 tabletRfl: 0 [START ON 10/04/2024] desvenlafaxine ER (PRISTIQ) 50 mg 24 hr tabletTake 1 tablet by mouth once daily. Patient should start on October 04, 2024.Disp: 30 tabletRfl: 5 Prescriptions as of 09/27/2024 - desvenlafaxine ER (PRISTIQ) 25 mg 24 hr tablet Take 1 tablet by mouth once daily. For one week and then increase to 50 mg a day after - desvenlafaxine ER (PRISTIQ) 50 mg 24 hr tablet Take 1 tablet by mouth once daily. Patient should start on October 04, 2024. - atomoxetine (STRATTERA) 40 mg capsule Take 1 capsule by mouth once daily. Then stop - losartan (COZAAR) 100 mg tablet Take 1 tablet by mouth once daily. - tiZANidine (ZANAFLEX) 4 mg tablet Take 4 mg by mouth. - potassium chloride (K-TAB) 10 mEq tablet Take 2 tablets by mouth once daily. - albuterol HFA (PROAIR HFA) 90 mcg/actuation inhaler Inhale 2 Puffs as instructed every 4 hours as needed (FOR COUGH OR WHEEZE). - aspirin, enteric coated (ASPIRIN, ENTERIC COATED) 81 mg EC tablet Take 1 tablet by mouth once daily. - tamsulosin (FLOMAX) 0.4 mg - esomeprazole (NEXIUM) 40 mg capsule Take 1 capsule by mouth two times a day before meals. - atorvastatin (LIPITOR) 20 mg tablet Take 1 tablet by mouth daily at bedtime. For cholesterol. - amLODIPine (NORVASC) 5 mg tablet Take 1 tablet by mouth once daily. - testosterone (ANDROGEL PUMP) 20.25 mg/1.25 gram (1.62 %) transdermal gel APPLY 4 PUMPS TOPICALLY DAILY. - oxyCODONE-acetaminophen 5-325 mg (PERCOCET) as needed. - CPAP Requires replacement machine at same settings. - Cholecalciferol, Vitamin D3, (VITAMIN D) 1,000 unit cap Take 1 capsule by mouth once daily. - cyanocobalamin (VITAMIN B-12) 1,000 mcg tab Take 1,000 mcg by mouth once daily. - MULTIVITAMIN TAB Take one(1) tablet daily BY MOUTH. Problem List As Of Date 09/27/2024 Noted Resolved Hyperlipidemia [E78.5] 09/30/2005 Palpitations [R00.2] 09/30/2005 07/13/2018 Shortness of breath [R06.02] 02/08/2007 07/13/2018 Diaphragmatic hernia without mention of obstruc*05/24/2011 Esophageal reflux [K21.9] 05/24/2011 Asbestos exposure [Z77.090] 03/20/2012 Essential hypertension, benign [I10] 03/20/2012 07/26/2023 Pulmonary embolism (HCC) [I26.99] 10/11/2013 10/25/2022 Hyperhydrosis disorder [R61] 12/25/2013 Low testosterone [R79.89] 12/25/2013 07/26/2023 CAD (coronary artery disease) s/p PTCA/STENT. *12/25/2013 Sleep apnea [G47.30] 12/25/2013 Peyronie's disease [N48.6] 11/05/2014 Impotence of organic origin [N52.9] 11/05/2014 07/26/2023 Asthma [J45.909] 05/06/2016 03/08/2024 Adrenal nodule (HCC) [E27.9] 05/06/2016 Lung nodule [R91.1] 05/06/2016 Hypokalemia [E87.6] 09/13/2017 Polyarthritis [M13.0] 09/14/2017 Spinal stenosis of lumbar region with neurogeni*06/22/2020 Neural foraminal stenosis of cervical spine [M4*06/22/2020 Atrial flutter (HCC) [I48.92] 09/22/2022 History of pulmonary embolism [Z86.711] 10/25/2022 Gastric intestinal metaplasia [K31.A0] 12/01/2022 History of colonic polyps [Z86.0100] 12/01/2022 Morbid obesity (HCC) [E66.01] 07/05/2023 07/26/2023 Former tobacco use [Z87.891] 07/05/2023 History of TIAs [Z86.73] 07/05/2023 Peripheral neuropathy [G62.9] 07/05/2023 07/26/2023 Obesity, Class III, BMI >= 40 [E66.01] 07/16/2023 07/26/2023 Abnormal cardiovascular stress test [R94.39] 08/21/2012 07/26/2023 Diagnosed: 07/26/2023 Acute prostatitis [N41.0] 07/26/2023 07/26/2023 Diagnosed: 07/26/2023 Chest pain [R07.9] 07/10/2012 07/26/2023 Diagnosed: 07/26/2023 Confusional state [F44.89] 07/26/2023 07/26/2023 Diagnosed: 07/26/2023 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 Normal [facility] CNOVon 09-23-2024 CNOV Office Visit (FAMPWS ) DURANLAZARO Trujillo ([id number]) 1955 M Date Time Provider Department 09/23/24 9:40 AM [facility] your visit today, we recorded the following information about you: Pulse Blood pressure Weight 82/minute 170/78 152 kg Jagjit Cheema MD 09/23/2024 10:05 AM Signed Patient presents with: Follow Up HPI: Patient presents today for office visit for follow up. Asked him to come back because he wrote admitting to worsening depression symptoms. Cries frequently. Not sleeping well. Some issues with ruminating over things. Increased appetite. No suicidal ideation. Not a great support system. Has done counseling before. Bp is up again today. No chest pain or shortness of breath. MEDICATIONS: Current Outpatient Medications Medication Sig tiZANidine (ZANAFLEX) 4 mg tablet Take 4 mg by mouth. losartan (COZAAR) 50 mg tablet Take 1 tablet by mouth once daily. potassium chloride (K-TAB) 10 mEq tablet Take 2 tablets by mouth once daily. albuterol HFA (PROAIR HFA) 90 mcg/actuation inhaler Inhale 2 Puffs as instructed every 4 hours as needed (FOR COUGH OR WHEEZE). benzonatate (TESSALON PERLE) 100 mg capsule Take 2 capsules by mouth three times a day as needed. (Patient not taking: Reported on 09/11/2024) meclizine (ANTIVERT) 25 mg tab Take 1 tablet by mouth three times a day as needed (dizziness). (Patient not taking: Reported on 06/13/2024) aspirin, enteric coated (ASPIRIN, ENTERIC COATED) 81 mg EC tablet Take 1 tablet by mouth once daily. atomoxetine (STRATTERA) 100 mg capsule Take 1 capsule by mouth once daily. tamsulosin (FLOMAX) 0.4 mg esomeprazole (NEXIUM) 40 mg capsule Take 1 capsule by mouth two times a day before meals. atorvastatin (LIPITOR) 20 mg tablet Take 1 tablet by mouth daily at bedtime. For cholesterol. (Patient not taking: Reported on 09/11/2024) amLODIPine (NORVASC) 5 mg tablet Take 1 tablet by mouth once daily. testosterone (ANDROGEL PUMP) 20.25 mg/1.25 gram (1.62 %) transdermal gel APPLY 4 PUMPS TOPICALLY DAILY. oxyCODONE-acetaminophen 5-325 mg (PERCOCET) as needed. CPAP Requires replacement machine at same settings. [...] F TRIAL SPINAL CORD STIMULATOR HEMORRHOIDECTOMY XTRNL > COLUMN/GROUP 04/30/2015 KNEE SURGERY HX Right 1988 LAPS SURG CHOLECYSTECTOMY W/CHOLANGIOGRAPHY 2004 [facility] - Dr. Bales OPEN REPAIR OF ROTATOR CUFF ACUTE Rotator cuff repair PERCUTANEOUS CORONARY INTERVENTION 2007 stent to LAD REPAIR EPIGASTRIC HERNIA,REDUC 07/19/2023 umbilical TONSILLECTOMY PRIMARY/SECONDARY Tonsillectomy FAMILY HISTORY Problem Relation Age of Onset Hypertension Mother Heart Mother Stroke Mother Allergies Mother Breast Cancer Mother Heart Father of [place] Allergies Father Asthma Daughter Allergies Sister Allergies Brother Allergies Daughter Social History Tobacco Use Smoking status: Former Current packs/day: 0.00 Average packs/day: 2.0 packs/day for 5.0 years (10.0 ttl pk-yrs) Types: Cigarettes Start date: 02/08/1982 Quit date: 02/08/1987 Years since quittin.6 Smokeless tobacco: Former Types: Chew Quit date: 12/03/2017 Tobacco comments: patient smoked for a few months in 2006 Quit chew June 2022 Vaping Use Vaping status: Never Used Substan (more content not included)... Normal [facility] CNPLoraine 09-19-2024 [facility] Telephone (PUMT) LAZARO GARZON ([id number]) 1955 Date Time Provider Department 09/19/24 JAGJIT CHEEMA [facility] During your visit today, we recorded the following information about you: Jagjit Cheema MD 09/19/2024 9:03 AM Signed Patient never responded or picked up my chart message in response to his question. See below. Please call and check on him with my response below: Looking at your note, you can have those symptoms due to worsening depression. There are meds like wellbutrin that work well for focus but better for depression. If you wanted we could taper and stop the straterrra and switch you to the wellbutrin. Are you willing? Do you feel like we need to have you talk with someone?Dr Cheema Written by Jagjit Cheema MD on 09/18/2024 12:29 PM EDT Kira Hassan RN 09/19/2024 10:28 AM Signed Pt called and is notified of providers message. Pt voices understanding and would like to have an appointment and discuss with Dr Cheema. Pt scheduled 09/23/[address] Cheema. Kira Hassan RN Allergies As of Date: 09/19/2024 Noted Allergy Reaction SULFA (SULFONAMIDE ANTIBIOTICS) 03/10/2005 2 - Rash Date Reviewed: 09/11/2024 Reviewed by: Jerilyn Henry MA - Fully Assessed Reason for Visit: Patient Update [1234] Prescriptions as of 09/19/2024 - tiZANidine (ZANAFLEX) 4 mg tablet Take 4 mg by mouth. - losartan (COZAAR) 50 mg tablet Take 1 tablet by mouth once daily. - potassium chloride (K-TAB) 10 mEq tablet Take 2 tablets by mouth once daily. - albuterol HFA (PROAIR HFA) 90 mcg/actuation inhaler Inhale 2 Puffs as instructed every 4 hours as needed (FOR COUGH OR WHEEZE). - benzonatate (TESSALON PERLE) 100 mg capsule Take 2 capsules by mouth three times a day as needed. - meclizine (ANTIVERT) 25 mg tab Take 1 tablet by mouth three times a day as needed (dizziness). - aspirin, enteric coated (ASPIRIN, ENTERIC COATED) 81 mg EC tablet Take 1 tablet by mouth once daily. - atomoxetine (STRATTERA) 100 mg capsule Take 1 capsule by mouth once daily. - tamsulosin (FLOMAX) 0.4 mg - esomeprazole (NEXIUM) 40 mg capsule Take 1 capsule by mouth two times a day before meals. - atorvastatin (LIPITOR) 20 mg tablet Take 1 tablet by mouth daily at bedtime. For cholesterol. - amLODIPine (NORVASC) 5 mg tablet Take 1 tablet by mouth once daily. - testosterone (ANDROGEL PUMP) 20.25 mg/1.25 gram (1.62 %) transdermal gel APPLY 4 PUMPS TOPICALLY DAILY. - oxyCODONE-acetaminophen 5-325 mg (PERCOCET) as needed. - CPAP Requires replacement machine at same settings. - Cholecalciferol, Vitamin D3, (VITAMIN D) 1,000 unit cap Take 1 capsule by mouth once daily. - cyanocobalamin (VITAMIN B-12) 1,000 mcg tab Take 1,000 mcg by mouth once daily. - MULTIVITAMIN TAB Take one(1) tablet daily BY MOUTH. Problem List As Of Date 09/19/2024 Noted Resolved Hyperlipidemia [E78.5] 09/30/2005 Palpitations [R00.2] 09/30/2005 07/13/2018 Shortness of breath [R06.02] 02/08/2007 07/13/2018 Diaphragmatic hernia without mention of obstruc*05/24/2011 Esophageal reflux [K21.9] 05/24/2011 Asbestos exposure [Z77.090] 03/20/2012 Essential hypertension, benign [I10] 03/20/2012 07/26/2023 Pulmonary embolism (HCC) [I26.99] 10/11/2013 10/25/2022 Hyperhydrosis disorder [R61] 12/25/2013 Low testosterone [R79.89] 12/25/2013 07/26/2023 CAD (coronary artery disease) s/p PTCA/STENT. *12/25/2013 Sleep apnea [G47.30] 12/25/2013 Peyronie's disease [N48.6] 11/05/2014 Impotence of organic origin [N52.9] 11/05/2014 07/26/2023 Asthma [J45.909] 05/06/2016 03/08/2024 Adrenal nodule (HCC) [E27.9] 05/06/2016 Lung nodule [R91.1] 05/06/2016 Hypokalemia [E87.6] 09/13/2017 Polyarthritis [M13.0] 09/14/2017 Spinal stenosis of lumbar region with neurogeni*06/22/2020 Neural foraminal stenosis of cervical spine [M4*06/22/2020 Atrial flutter (HCC) [I48.92] 09/22/2022 History of pulmonary embolism [Z86.711] 10/25/2022 Gastric intestinal metaplasia [K31.A0] 12/01/2022 History of colonic polyps [Z86.0100] 12/01/2022 Morbid obesity (HCC) [E66.01] 07/05/2023 07/26/2023 Former tobacco use [Z87.891] 07/05/2023 History of TIAs [Z86.73] 07/05/2023 Peripheral neuropathy [G62.9] 07/05/2023 07/26/2023 Obesity, Class III, BMI >= 40 [E66.01] 07/16/2023 07/26/2023 Abnormal cardiovascular stress test [R94.39] 08/21/2012 07/26/2023 Diagnosed: 07/26/2023 Acute prostatitis [N41.0] 07/26/2023 07/26/2023 Diagnosed: 07/26/2023 Chest pain [R07.9] 07/10/2012 07/26/2023 Diagnosed: 07/26/2023 Confusional state [F44.89] 07/26/2023 07/26/2023 Diagnosed: 07/26/2023 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 Normal [facility] CBC W Auto Differential pane l (Bld)on 09-17-2024 Basophils (Bld) [#/Vol] 0.03 10*3/uL Normal <0.11 [facility] Comment on above: Order Comment: Speci men Type: BLOOD SPECIMENOrdering Facility: [facility] Address: [address] [place] [address] Performed By: #### 5 7021-8, 4537-7 ####[facility] [id number] [place] [address] [place] Basophils/100 WBC (Bld) 0.7 % Normal [facility] Comment on above: Order Comment: Speci men Type: BLOOD SPECIMENOrdering Facility: [facility] Address: [address] [place] [address] Performed By: #### 5 7021-8, 4536-7 ####[facility] [id number] [place] [address] [place] Differential cell count method Nom (Bld) Auto Normal [facility] Comment on above: Order Comment: Speci men Type: BLOOD SPECIMENOrdering Facility: [facility] Address: [address] [place] [address] Performed By: #### 5 7021-8, 4536-7 ####[facility] [id number] [place] [address] [place] Eosinophils (Bld) [#/Vol] 0.06 10*3/uL Normal <0.46 [facility] Comment on above: Order Comment: Speci men Type: BLOOD SPECIMENOrdering Facility: [facility] Address: [address] [place] [address] Performed By: #### 5 7021-8, 7 ####[facility] [id number] [place] [address] [place] Eosinophils/100 WBC (Bld) 1.4 % Normal [facility] Comment on above: Order Comment: Speci men Type: BLOOD SPECIMENOrdering Facility: [facility] Address: [address] [place] [address] Performed By: #### 5 7021-8, 7 ####[facility] [id number] [place] [address] [place] Erythrocyte distribution width (RBC) [Ratio] 13.4 % Normal 11.5-15.0 [facility] Comment on above: Order Comment: Speci men Type: BLOOD SPECIMENOrdering Facility: [facility] Address: [address] [place] [address] Performed By: #### 5 7021-8, 4536-7 ####[facility] [id number] [place] [address] [place] Hematocrit (Bld) [Volume fraction] 46.8 % Normal 39.0-51.0 [facility] Comment on above: Order Comment: Speci men Type: BLOOD SPECIMENOrdering Facility: [facility] Address: [address] [place] [address] Performed By: #### 5 7021-8, 4537-7 ####[facility] [id number] [place] [address] [place] Hemoglobin (Bld) [Mass/Vol] 15.6 g/dL Normal 13.0-17.0 [facility] Comment on above: Order Comment: Speci men Type: BLOOD SPECIMENOrdering Facility: [facility] Address: [address] [place] [address] Performed By: #### 5 7021-8, 4537-7 ####[facility] [id number] [place] [address] [place] Immature granulocytes (Bld) [#/Vol] 10*3/uL Normal <0.10 [facility] Comment on above: Order Comment: Speci men Type: BLOOD SPECIMENOrdering Facility: [facility] Address: [address] [place] [address] Performed By: #### 5 7021-8, 7-7 ####[facility] [id number] [place] [address] [place] Immature granulocytes/100 WBC (Bld) 0.2 % Normal [facility] Comment on above: Order Comment: Speci men Type: BLOOD SPECIMENOrdering Facility: [facility] Address: [address] [place], [place] [address] Performed By: #### 5 7021-8, 7-7 ####[facility] [id number] [place] [address] [place] Lymphocytes (Bld) [#/Vol] 0.91 10*3/uL Low 1.00-4.00 [facility] Comment on above: Order Comment: Speci men Type: BLOOD SPECIMENOrdering Facility: [facility] Address: [address] [place] [address] Performed By: #### 5 7021-8, 4536-7 ####[facility] [id number] [place] [address] [place] Lymphocytes/100 WBC (Bld) 20.5 % Normal [facility] Comment on above: Order Comment: Speci men Type: BLOOD SPECIMENOrdering Facility: [facility] Address: [address] [place] [address] Performed By: #### 5 7021-8, 4536-7 ####[facility] [id number] [place] [address] [place] MCH (RBC) [Entitic mass] 28.6 pg Normal 26.0-34.0 [facility] Comment on above: Order Comment: Speci men Type: BLOOD SPECIMENOrdering Facility: [facility] Address: [address] [place] [address] Performed By: #### 5 7021-8, 4536-7 ####[facility] [id number] [place] [address] [place] MCHC (RBC) [Mass/Vol] 33.3 g/dL Normal 30.5-36.0 [facility] Comment on above: Order Comment: Speci men Type: BLOOD SPECIMENOrdering Facility: [facility] Address: [address] [place] [address] Performed By: #### 5 7021-8, 7-7 ####[facility] [id number] [place] [address] [place] MCV (RBC) [Entitic vol] 85.7 fL Normal 80.0-100.0 [facility] Comment on above: Order Comment: Speci men Type: BLOOD SPECIMENOrdering Facility: [facility] Address: [address] [place] [address] Performed By: #### 5 7021-8, 7 ####[facility] [id number] [place] [address] [place] Monocytes (Bld) [#/Vol] 0.40 10*3/uL Normal <0.87 [facility] Comment on above: Order Comment: Speci men Type: BLOOD SPECIMENOrdering Facility: [facility] Address: [address] [place] [address] Performed By: #### 5 7021-8, 7 ####[facility] [id number] [place] [address] [place] Monocytes/100 WBC (Bld) 9.0 % Normal [facility] Comment on above: Order Comment: Speci men Type: BLOOD SPECIMENOrdering Facility: [facility] Address: [address] [place] [address] Performed By: #### 5 7021-8, 7 ####[facility] [id number] [place] [address] [place] Neutrophils (Bld) [#/Vol] 3.02 10*3/uL Normal 1.45-7.50 [facility] Comment on above: Order Comment: Speci men Type: BLOOD SPECIMENOrdering Facility: [facility] Address: [address] [place] [address] Performed By: #### 5 7021-8, 4536-12 ####[facility] [id number] [place] [address] [place] Neutrophils/100 WBC (Bld) 68.2 % Normal [facility] Comment on above: Order Comment: Speci men Type: BLOOD SPECIMENOrdering Facility: [facility] Address: [address] [place] [address] Performed By: #### 5 7021-8, 4536-12 ####[facility] [id number] [address] [place] [address] [place] Nucleated RBC (Bld) [#/Vol] 10*3/uL Normal <0.01 [facility] Comment on above: Order Comment: Speci men Type: BLOOD SPECIMENOrdering Facility: [facility] Address: [address] [place] [address] Performed By: #### 5 7021-8, 7 ####[facility] [id number] [place] [address] [place] Nucleated RBC/100 WBC (Bld) [Ratio] 0.0 /100 WBC Normal [facility] Comment on above: Order Comment: Speci men Type: BLOOD SPECIMENOrdering Facility: [facility] Address: [address] [place] [address] Performed By: #### 5 7021-8, 7 ####[facility] [id number] [place] [address] [place] Platelet mean volume (Bld) [Entitic vol] 11.7 fL Normal 9.0-12.7 [facility] Comment on above: Order Comment: Speci men Type: BLOOD SPECIMENOrdering Facility: [facility] Address: [address] [place] [address] Performed By: #### 5 7021-8, 7 ####[facility] [id number] [address], [place] [address] [place] Platelets (Bld) [#/Vol] 143 10*3/uL Low 150-400 [facility] Comment on above: Order Comment: Speci men Type: BLOOD SPECIMENOrdering Facility: [facility] Address: [address] [place] [address] Performed By: #### 5 7021-8, 4536-7 ####[facility] [id number] [address] [address] [place] RBC (Bld) [#/Vol] 5.46 10*6/uL Normal 4.20-6.00 [facility] Comment on above: Order Comment: Speci men Type: BLOOD SPECIMENOrdering Facility: [facility] Address: [address] [place] [address] Performed By: #### 5 7021-8, 4537-7 ####[facility] [id number] [address], [place] [address] [place] WBC (Bld) [#/Vol] 4.43 10*3/uL Normal 3.70-11.00 [facility] Comment on above: Order Comment: Speci men Type: BLOOD SPECIMENOrdering Facility: [facility] Address: [address] [place] [address] Performed By: #### 5 7021-8, 4537-7 ####[facility] [id number] [place] [address] [place] Comprehensive metabolic 2000 panelon 09-17-2024 Albumin [Mass/Vol] 4.4 g/dL Normal 3.9-4.9 [facility] Comment on above: Order Comment: Speci men Type: BLOOD SPECIMENOrdering Facility: [facility] Address: [address] [place] [address] Performed By: #### 2 4323-8, T4FTI, 19399-3 ####[facility] [id number] [address], [facility] [place] ALP [Catalytic activity/Vol] 71 U/L Normal 38-113 [facility] Comment on above: Order Comment: Speci men Type: BLOOD SPECIMENOrdering Facility: [facility] Address: [address] [place] [address] Performed By: #### 2 4323-8, T4FTI, 92971-6 ####[facility] [id number] [address] [place] [address] [place] ALT [Catalytic activity/Vol] 31 U/L Normal 10-54 [facility] Comment on above: Order Comment: Speci men Type: BLOOD SPECIMENOrdering Facility: [facility] Address: [address] [place] [address] Performed By: #### 2 4323-8, T4FTI, 91241-5 ####[facility] [id number] [place] [id number] [place] Anion gap [Moles/Vol] 13 mmol/L Normal 8-15 [facility] Comment on above: Order Comment: Speci men Type: BLOOD SPECIMENOrdering Facility: [facility] Address: [address] [place] [address] Performed By: #### 2 4323-8, T4FTI, 79416-6 ####[facility] [id number] [place] [address] [place] AST [Catalytic activity/Vol] 25 U/L Normal 14-40 [facility] Comment on above: Order Comment: Speci men Type: BLOOD SPECIMENOrdering Facility: [facility] Address: [address] [place] [address] Performed By: #### 2 4323-8, T4FTI, 96361-0 ####[facility] [id number] [place] [id number] [place] Bilirubin [Mass/Vol] 1.0 mg/dL Normal 0.2-1.3 [facility] Comment on above: Order Comment: Speci men Type: BLOOD SPECIMENOrdering Facility: [facility] Address: [address] [place] [address] Performed By: #### 2 4323-8, T4FTI, 90895-9 ####[facility] [id number] [address] [place] [address] [place] Calcium [Mass/Vol] 9.7 mg/dL Normal 8.5-10.2 [facility] Comment on above: Order Comment: Speci men Type: BLOOD SPECIMENOrdering Facility: [facility] Address: [address] [place] [address] Performed By: #### 2 4323-8, T4FTI, 52764-9 ####[facility] [id number] [facility] [address] [address] [place] Chloride [Moles/Vol] 104 mmol/L Normal 98-107 [facility] Comment on above: Order Comment: Speci men Type: BLOOD SPECIMENOrdering Facility: [facility] Address: [address] [place] [address] Performed By: #### 2 4323-8, T4FT, 18975-7 ####[facility] [id number] [address] [address] [place] CO2 [Moles/Vol] 24 mmol/L Normal 22-30 [facility] Comment on above: Order Comment: Speci men Type: BLOOD SPECIMENOrdering Facility: [facility] Address: [address] [place] [address] Performed By: #### 2 4323-8, T4FTI, 38908-5 ####[facility] [id number] [address] [address] [place] Creatinine [Mass/Vol] 1.00 mg/dL Normal 0.73-1.22 [facility] Comment on above: Order Comment: Speci men Type: BLOOD SPECIMENOrdering Facility: [facility] Address: [address] [place], [place] [address] Performed By: #### 2 4323-8, T4FTI, 17579-4 ####[facility] [id number] [address] [address] [place] Creatinine and Glomerular filtration rate.predicted panel (S/P/Bld) 83 mL/min/1.73m??? Normal >=60 [facility] Comment on above: Order Comment: Speci men Type: BLOOD SPECIMENOrdering Facility: [facility] Address: [address] [place] [address] Result Comment: Jayshree mated Glomerular Filtration Rate (eGFR) is calculated using the 2020 CKD-EPI creatinine equation. This equation utilizes serum creatinine, sex, and age as parameters. The creatinine assay has traceable calibration to isotope dilution-mass spectrometry. Refer to KDIGO guidelines for clinical interpretation. In patients with unstable renal function, e.g. those with acute kidney injury, the eGFR may not accurately reflect actual GFR. Performed By: #### 2 4323-8, T4FTI, 40127-9 ####[facility] [id number] [place] [address] [place] Glucose [Mass/Vol] 117 mg/dL High 74-99 [facility] Comment on above: Order Comment: Dunia peters Type: BLOOD SPECIMENOrdering Facility: [facility] Address: [address] [place] [address] Result Comment: The [place] Diabetes Association (ADA) provides guidance for cutoff values for fasting glucose and random glucose. The ADA defines fasting as no caloric intake for at least 8 hours. Fasting plasma glucose results between 100 to 125 [...] Standards of Medical Care in Diabetes 2016, [place] [employer]. Diabetes Care. 2016.39(Suppl 1). Performed By: #### 2 4323-8, T4FTI, 65202-9 ####[facility] [id number] [place] [address] [place] Potassium [Moles/Vol] 4.1 mmol/L Normal 3.7-5.1 [facility] Comment on above: Order Comment: Dunia peters Type: BLOOD SPECIMENOrdering Facility: [facility] Address: [address] [place] [address] Performed By: #### 2 4323-8, T4FTI, 76130-2 ####[facility] [id number] [place] [address] [place] Protein [Mass/Vol] 7.4 g/dL Normal 6.3-8.0 [facility] Comment on above: Order Comment: Speci men Type: BLOOD SPECIMENOrdering Facility: [facility] Address: [address] [place] [address] Performed By: #### 2 4323-8, T4FTI, 11778-8 ####[facility] [id number] [place] [address] [place] Sodium [Moles/Vol] 141 mmol/L Normal 136-144 [facility] Comment on above: Order Comment: Speci men Type: BLOOD SPECIMENOrdering Facility: [facility] Address: [address] [place] [address] Performed By: #### 2 4323-8, T4FTI, 93087-9 ####[facility] [id number] [place] [address] [place] Urea nitrogen [Mass/Vol] 12 mg/dL Normal 9-24 [facility] Comment on above: Order Comment: Speci men Type: BLOOD SPECIMENOrdering Facility: [facility] Address: [address] [place] [address] Performed By: #### 2 4323-8, T4FTI, 85914-5 ####[facility] [id number] [place] [id number] [place] ESR Westergren method (Bld) [Velocity]on 09-17-2024 ESR (Bld) [Velocity] 16 mm/h High 0-15 [facility] Comment on above: Order Comment: Speci men Type: BLOOD SPECIMENOrdering Facility: [facility] Address: [address] [place] [address] Performed By: #### 5 7021-8, 4537-7 ####[facility] [id number] [address] [place] Lipid 1996 panelon 5 Cholesterol [Mass/Vol] 134 mg/dL Normal <200 [facility] Comment on above: Order Comment: Speci men Type: BLOOD SPECIMENOrdering Facility: [facility] Address: [address] [place] [address] Result Comment: <200 mg/dL, Desirable 200-239 mg/dL, Borderline high >239 mg/dL, High Performed By: #### 2 4323-8, T4FTI, 44950-9 ####[facility] [id number] [address] [place] Cholesterol in HDL [Mass/Vol] 30 mg/dL Low >39 [facility] Comment on above: Order Comment: Speci men Type: BLOOD SPECIMENOrdering Facility: [facility] Address: [address] [place] [address] Result Comment: 40-5 9 mg/dL, Acceptable >59 mg/dL, High: Negative risk factor for coronary heart disease <40 mg/dL, Low: Positive risk factor for coronary heart disease Performed By: #### 2 4323-8, T4FTI, 33734-8 ####[facility] [id number] [address] [place] Cholesterol in LDL [Mass/Vol] 46 mg/dL Normal <100 [facility] Comment on above: Order Comment: Speci men Type: BLOOD SPECIMENOrdering Facility: [facility] Address: [address] [place] [address] Result Comment: <100 mg/dL, Optimal 100-129 mg/dL, Near optimal/above optimal 130-159 mg/dL, Borderline high 160-189 mg/dL, High >189 mg/dL, Very high Secondary prevention optimal LDL Cholesterol levels are recommended to be < 70 mg/dL Performed By: #### 2 4323-8, T4FTI, 11982-9 ####[facility] [id number] [place] [address] [place] Cholesterol in LDL/Cholesterol in HDL [Mass ratio] 1.53 {ratio} Normal <2.54 [facility] Comment on above: Order Comment: Speci men Type: BLOOD SPECIMENOrdering Facility: [facility] Address: [address] [place] [address] Result Comment: Refe rence: 1. National Cholesterol Education Program ATP III Guideline At-A-Glance Quick Desk Reference: National Heart, Lung, and Blood [place]. National Institutes of Health. 2001: NIH Publication No. 01-3305. 2. An International Atherosclerosis Society position paper: global recommendations for the management of dyslipidemia: executive summary, Atherosclerosis. 2014: 232(2):410-413. Performed By: #### 2 4323-8, T4FTI, 89382-4 ####[facility] [id number] [place] [address] [place] Cholesterol in VLDL [Mass/Vol] 58 mg/dL High <30 [facility] Comment on above: Order Comment: Paragi men Type: BLOOD SPECIMENOrdering Facility: [facility] Address: [address] [place] [address] Performed By: #### 2 4323-8, T4FTI, 05536-2 ####[facility] [id number] [place] [address] [place] Cholesterol non HDL [Mass/Vol] 104 mg/dL Normal <130 [facility] Comment on above: Order Comment: Speci men Type: BLOOD SPECIMENOrdering Facility: [facility] Address: [address] [place] [address] Result Comment: <130 mg/dL, Optimal 130-159 mg/dL, Near optimal/above optimal 160-189 mg/dL, Borderline high 190-219 mg/dL, High >219 mg/dL, Very high Secondary prevention optimal non HDL Cholesterol levels are recommended to be <100 mg/dL Performed By: #### 2 4323-8, T4FTI, 08090-4 ####[facility] [id number] [address] [place] [address] [place] Cholesterol.total/Cho lesterol in HDL [Mass ratio] 4.47 {ratio} Normal <5.10 [facility] Comment on above: Order Comment: Speci men Type: BLOOD SPECIMENOrdering Facility: [facility] Address: [address] [place] [address] Performed By: #### 2 4323-8, T4FTI, 99620-5 ####[facility] [id number] [place] [address] [place] FASTING TIME 12 hrs Normal [facility] Comment on above: Order Comment: Speci men Type: BLOOD SPECIMENOrdering Facility: [facility] Address: [address] [place] [address] Performed By: #### 2 4323-8, T4FTI, 00498-7 ####[facility] [id number] [place] [id number] [place] Triglyceride [Mass/Vol] 292 mg/dL High <150 [facility] Comment on above: Order Comment: Speci men Type: BLOOD SPECIMENOrdering Facility: [facility] Address: [address] [place] [address] Result Comment: <150 mg/dL, Normal 150-199 mg/dL, Borderline high 200-499 mg/dL, High >499 mg/dL, Very high Performed By: #### 2 4323-8, T4FTI, 05481-4 ####[facility] [id number] [address] [address] [place] T4/FTI/T4Uon 09-17-2024 FTI 6.0 ug/dL Normal 5.3-10.8 [facility] Comment on above: Order Comment: Speci men Type: BLOOD SPECIMENOrdering Facility: [facility] Address: [address] [place] [address] Performed By: #### 2 4323-8, T4FTI, 32561-3 ####[facility] [id number] [place] [id number] [place] T4 [Mass/Vol] 6.8 ug/dL Normal 5.5-10.2 [facility] Comment on above: Order Comment: Speci men Type: BLOOD SPECIMENOrdering Facility: [facility] Address: [address] [place] [address] Performed By: #### 2 4323-8, T4FTI, 30329-4 ####[facility] [id number] [place] [address] [place] T4 uptake [Mass/Vol] 1.13 Normal 0.91-1.19 [facility] Comment on above: Order Comment: Speci men Type: BLOOD SPECIMENOrdering Facility: [facility] Address: [address] [place] [address] Performed By: #### 2 4323-8, T4FTI, 26284-5 ####[facility] [id number] [place] [address] [place] TSH SerPl-aCncon 09-17-2024 TSH Qn 2.780 m[IU]/L Normal 0.270-4.20 0 [facility] Comment on above: Order Comment: Speci men Type: BLOOD SPECIMENOrdering Facility: [facility] Address: [address] [place] [address] Performed By: #### 3 016-3 ####[facility] [id number] [place] [id number] [place] CNOVon 09-11-2024 CNOV Office Visit (FAMPWS ) DURANLAZARO MCFARLANE ([id number]) 1955 M Date Time Provider Department 09/11/24 8:40 AM JAGJIT CHEEMA During your visit today, we recorded the following information about you: Pulse Blood pressure Weight Height 77/minute 148/70 152 kg 1.956 m Jagjit Cheema MD 09/11/2024 9:00 AM Signed Patient presents with: 6 Month Exam HPI: Patient presents today for office visit for follow up. HTN: Denies chest pain and shortness of breath. Some headaches. Refers to his head feeling like there is a band around it. Not the worst headache. Is mild. No new neuro issues. No palpitations or syncope. No edema. HLD: No longer talking atorvastatin. Does not feel any different. DEENA: Using CPAP nightly. Using when he naps also. Sleeping well through the night. Unknown if snoring. Does not feel rested when he wakes up. Lots of daytime fatigue. Benefiting from use and should continue therapy. DME: Currently using [employer]. Would like to change. Since having covid last year in December. Has been fatigued and having cough and occasionally lightheadedness. . No syncope. Has noted more depression. No suicidal ideation. Remains straterra. Feels that is working well. Does not want to change meds. Has done counseling. Occasionally lightheaded. Some gi issues. Has alternating bowel habits. No bloody or black stools. Just had colonoscopy in 2022. Worse when stressed. Red flags for re-assessment reviewed with patient in detail. Offered to see gi if continues. Has occasional cough. Declines work up. Discussed long covid clinic if worsens. Just had testosterone checked by Dr Ramos, urology. Still seeing [facility]. MEDICATIONS: Current Outpatient Medications Medication Sig tiZANidine (ZANAFLEX) 4 mg tablet Take 4 mg by mouth. losartan (COZAAR) 50 mg tablet Take 1 tablet by mouth once daily. potassium chloride (K-TAB) 10 mEq tablet Take 2 tablets by mouth once daily. albuterol HFA (PROAIR HFA) 90 mcg/actuation inhaler Inhale 2 Puffs as instructed every 4 hours as needed (FOR COUGH OR WHEEZE). aspirin, enteric coated (ASPIRIN, ENTERIC COATED) 81 mg EC tablet Take 1 tablet by mouth once daily. atomoxetine (STRATTERA) 100 mg capsule Take 1 capsule by mouth once daily. tamsulosin (FLOMAX) 0.4 mg esomeprazole (NEXIUM) 40 mg capsule Take 1 capsule by mouth two times a day before meals. amLODIPine (NORVASC) 5 mg tablet Take 1 tablet by mouth once daily. testosterone (ANDROGEL PUMP) 20.25 mg/1.25 gram (1.62 %) transdermal gel APPLY 4 PUMPS TOPICALLY DAILY. oxyCODONE-acetaminophen 5-325 mg (PERCOCET) as needed. CPAP Requires replacement machine at same settings. Cholecalciferol, Vitamin D3, (VITAMIN D) 1,000 unit cap Take 1 capsule by mouth once daily. cyanocobalamin (VITAMIN B-12) 1,000 mcg tab Take 1,000 mcg by mouth once daily. MULTIVITAMIN TAB Take one(1) tablet daily BY MOUTH. benzonatate (TESSALON PERLE) 100 mg capsule Take 2 capsules by mouth three times a day as needed. (Patient not taking: Reported on 09/11/2024) meclizine (ANTIVERT) 25 mg tab Take 1 tablet by mouth three times a day as needed (dizziness). (Patient not taking: Reported on 06/13/2024) atorvastatin (LIPITOR) 20 mg tablet Take 1 tablet by mouth daily at bedtime. For cholesterol. (Patient not taking: Reported on 09/11/2024) No current facility-administered medications for this visit. [...] SURGERY HX Right 1988 LAPS SURG CHOLECYSTECTOMY W/CHOLANGIOG (more content not included)... Normal [facility] Cardiology Visit Reporton Cardiology Visit Report [facility] [address] [place] [address] OFFICE VISIT Date of Service: 08/16/24 MR#: [id number] Acct: [id number] Name: LAZARO GARZON Rep #: [id number] : 1955 Provider: SARA beckett Age/Sex: 68/M Location: [facility] [place] Status: Signed HPI HPI History of Present Illness Details: Patient is a 68-year-old white male that comes in with a history of paroxysmal atrial fibrillation and coronary artery disease. He also has a history of hypertension obstructive sleep apnea treated by CPAP he is overweight and has a history of hyperlipidemia. He denies chest, arm, jaw, or neck discomfort. He denies palpitations. He states bilateral lower extremity edema. He denies claudication. He denies shortness of breath with activity, shortness of breath at rest, orthopnea, or PND. He denies chronic cough. He denies significant, sudden weight gain. He denies lightheadedness, dizziness, near-syncope, or syncope. He denies blood in urine, blood in stool, or epistaxis. He denies fever with chills. He denies myalgia. He denies fatigue. His exercise level has remained stable. Intake Vital Signs 12/20/23 11:00 01/15/24 10:22 08/16/24 10:33 Height 6 ft 5 in 6 ft 5 in 6 ft 5 in Weight: 324 lb 330 lb BMI 38.4 39.1 BP 144/78 H 148/84 H Blood Pressure Location Lt brachial Lt brachial Position Sitting Sitting Respiration 18 16 Pulse 88 72 Pulse Source Monitor Monitor Pulse Oximetry (%) 97 Oxygen Delivery Method room air Intake Visit Reasons: 6 M FU [employer] Required: No Accompanied by: Self Is patient in pain?: No Allergies Sulfa (Sulfonamide Antibiotics) Allergy (Verified 08/16/24 10:34) Unknown Medications ???Medication ???Instructions ???Recorded ???Confirmed ???Type multivitamin,tc-msqx-dkllxzp s 27 1 tab PO DAILY supplement 12/10/13 08/16/24 History mg-0.4 mg tablet albuterol sulfate 90 mcg/actuation 1 - 2 puff inhalation Q6H PRN NE N 07/08/19 08/16/24 History aerosol inhaler Asthma esomeprazole magnesium 20 mg 40 mg PO DAILY acid reflux 1 08/16/24 History capsule,delayed release (Nexium) testosterone 4 pump transdermal DAILY low 11/2308/16/24 History testosterone tamsulosin 0.4 mg capsule 0.4 mg PO DAILY prostate 04/29/22 08/16/24 History potassium chloride 20 mEq 40 meq (2 x 20 mEq) PO DAILY #8 08/16/24 Rx tablet,extended release tabs aspirin 81 mg tablet,delayed 81 mg PO DAILY 07/05/23 08/16/24 H istory release losartan 50 mg tablet 50 mg PO DAILY #90 tabs 07/05/23 0 08/16/24 Rx amlodipine 5 mg tablet 10 mg (2 x 5 mg) PO DAILY htn #90 04/08/24 08/16/24 Rx tabs Have you fallen in the past year?: No PFSH Medical History Abnormal myocardial perfusion study Abnormal stress test Acute pyelonephritis Atherosclerotic heart disease of [place] coronary artery without angina pectoris Atrial flutter BPH (benign prostatic hyperplasia) Chest pain Claudication Complicated urinary tract infection Confusion Coronary artery disease Dyslipidemia Dyspnea Dyspnea on exertion Essential hypertension Failure of outpatient treatment Fatigue Fibromyalgia First degree heart block Former tobacco use GERD (gastroesophageal reflux disease) H/O percutaneous transluminal coronary angioplasty History of cardioversion History of pulmonary embolism History of shingles History of TIA (transient ischemic attack) HTN (hypertension) Morbid obesity with BMI of 40.0-44.9, adult Obesity DEENA (obstructive sleep apnea) Paroxysmal atrial flutter Prostate enlargement Pulmonary embolism Pure hypercholesterolemia Rectal bleeding Testosterone deficiency Thrombocytopenia Unstable angina UTI (urinary tract infection) Surgical History History of arthroscopy of right knee History of back surgery History of laparoscopic cholecystectomy History of left heart catheterization (LHC) History of PTCA ( 08/2012) History of repair of rotator cuff History of tonsillectomy and adenoidectomy History of transurethral resection of prostate Presence of coronary angioplasty implant and graft ( 08/2012) Presence of stent in coronary artery ( 08/2012) Spinal cord stimulator status ( 05/2021) Family History Mother CAD (coronary artery disease) Hypertension Hx of CABG Father Hypertension Myocardial infarction Grandfather Myocardial infarction paternal Grandmother Cancer pancreatic CA Grandfather CAD (coronary artery disease) Social History Smoking Status: Former smoker quit date: 06/19/ (more content not included)... Normal [facility] 07-12-2024 [facility] LAZARO GARZON ([id number]) 1955 M Date Time Provider Department 07/12[facility]24 [facility] During your visit today, we recorded the following information about you: Sandy Velez LPN 07/12/2024 11:37 AM Signed Ratna with [facility] called for the last couple office visits to be faxed to them. Identified pt with name and date of . . Ratna looking for mention of c-pap. I did not see anything,. Ratna will look over. Done. Sandy Velez LPN Allergies As of Date: 07/12/2024 Noted Allergy Reaction SULFA (SULFONAMIDE ANTIBIOTICS) 03/10/2005 2 - Rash Date Reviewed: 07/08/2024 Reviewed by: Jerilyn Henry MA - Fully Assessed Reason for Visit: [employer] [Other] Prescriptions as of 07/12/2024 - potassium chloride (K-TAB) 10 mEq tablet Take 2 tablets by mouth once daily. - albuterol HFA (PROAIR HFA) 90 mcg/actuation inhaler Inhale 2 Puffs as instructed every 4 hours as needed (FOR COUGH OR WHEEZE). - benzonatate (TESSALON PERLE) 100 mg capsule Take 2 capsules by mouth three times a day as needed. - meclizine (ANTIVERT) 25 mg tab Take 1 tablet by mouth three times a day as needed (dizziness). - aspirin, enteric coated (ASPIRIN, ENTERIC COATED) 81 mg EC tablet Take 1 tablet by mouth once daily. - atomoxetine (STRATTERA) 100 mg capsule Take 1 capsule by mouth once daily. - tamsulosin (FLOMAX) 0.4 mg - esomeprazole (NEXIUM) 40 mg capsule Take 1 capsule by mouth two times a day before meals. - losartan (COZAAR) 50 mg tablet Take 1 tablet by mouth once daily. - atorvastatin (LIPITOR) 20 mg tablet Take 1 tablet by mouth daily at bedtime. For cholesterol. - amLODIPine (NORVASC) 5 mg tablet Take 1 tablet by mouth once daily. - testosterone (ANDROGEL PUMP) 20.25 mg/1.25 gram (1.62 %) transdermal gel APPLY 4 PUMPS TOPICALLY DAILY. - oxyCODONE-acetaminophen 5-325 mg (PERCOCET) as needed. - CPAP Requires replacement machine at same settings. - Cholecalciferol, Vitamin D3, (VITAMIN D) 1,000 unit cap Take 1 capsule by mouth once daily. - cyanocobalamin (VITAMIN B-12) 1,000 mcg tab Take 1,000 mcg by mouth once daily. - MULTIVITAMIN TAB Take one(1) tablet daily BY MOUTH. Problem List As Of Date 07/12/2024 Noted Resolved Hyperlipidemia [E78.5] 09/30/2005 Palpitations [R00.2] 09/30/2005 07/13/2018 Shortness of breath [R06.02] 02/08/2007 07/13/2018 Diaphragmatic hernia without mention of obstruc*05/24/2011 Esophageal reflux [K21.9] 05/24/2011 Asbestos exposure [Z77.090] 03/20/2012 Essential hypertension, benign [I10] 03/20/2012 07/26/2023 Pulmonary embolism (HCC) [I26.99] 10/11/2013 10/25/2022 Hyperhydrosis disorder [R61] 12/25/2013 Low testosterone [R79.89] 12/25/2013 07/26/2023 CAD (coronary artery disease) s/p PTCA/STENT. *12/25/2013 Sleep apnea [G47.30] 12/25/2013 Peyronie's disease [N48.6] 11/05/2014 Impotence of organic origin [N52.9] 11/05/2014 07/26/2023 Asthma [J45.909] 05/06/2016 03/08/2024 Adrenal nodule (HCC) [E27.9] 05/06/2016 Lung nodule [R91.1] 05/06/2016 Hypokalemia [E87.6] 09/13/2017 Polyarthritis [M13.0] 09/14/2017 Spinal stenosis of lumbar region with neurogeni*06/22/2020 Neural foraminal stenosis of cervical spine [M4*06/22/2020 Atrial flutter (HCC) [I48.92] 09/22/2022 History of pulmonary embolism [Z86.711] 10/25/2022 Gastric intestinal metaplasia [K31.A0] 12/01/2022 History of colonic polyps [Z86.0100] 12/01/2022 Morbid obesity (HCC) [E66.01] 07/05/2023 07/26/2023 Former tobacco use [Z87.891] 07/05/2023 History of TIAs [Z86.73] 07/05/2023 Peripheral neuropathy [G62.9] 07/05/2023 07/26/2023 Obesity, Class III, BMI >= 40 [E66.01] 07/16/2023 07/26/2023 Abnormal cardiovascular stress test [R94.39] 08/21/2012 07/26/2023 Diagnosed: 07/26/2023 Acute prostatitis [N41.0] 07/26/2023 07/26/2023 Diagnosed: 07/26/2023 Chest pain [R07.9] 07/10/2012 07/26/2023 Diagnosed: 07/26/2023 Confusional state [F44.89] 07/26/2023 07/26/2023 Diagnosed: 07/26/2023 Disorder involving thrombocytopenia (HCC) [D69.*07/26/2023 07/26/2023 Diagnosed: 07/26/2023 Encounter for long-term (current) use of insuli*12/17/2012 07/26/2023 Diagnosed: 07/26/2023 Enlarged prostate [N40.0] 07/26/2023 Diagnosed: 07/26/2023 Fatigue [R53.83] 10/30/2013 07/26/2023 Diagnosed: 07/26/2023 Fever [R50.9] 07/26/2023 07/26/2023 Diagnosed: 07/26/2023 First degree atrioventricular block [I44.0] 07/26/2023 Diagnosed: 07/26/2023 Headache, unspecified [R51.9] 07/26/2023 07/26/2023 Diagnosed: 07/26/2023 No response to treatment [[id number]] 07/26/2023 07/26/2023 Diagnosed: 07/26/2023 Otitis externa [H60.90] 07/26/2023 07/26/2023 Diagnosed: 07/26/2023 Postprocedural state [Z98.890] 07/26/2023 07/26/2023 Diagnosed: 07/26/2023 Presence of stent in coronary artery [Z95.5] 07/26/2023 Diagnosed: 07/26/2023 Status post coronary seymour (more content not included)... Normal [facility] CNOVon 07-08-2024 CNOV Office Visit (FAMPWS ) DURANLAZARO MCFARLANE ([id number]) 1955 M Date Time Provider Department 07/08/24 9:00 AM JAGJIT CHEEMA During your visit today, we recorded the following information about you: Pulse Blood pressure Weight Height 87/minute 136/80 149.7 kg 1.956 m Jagjit Cheema MD 07/08/2024 9:37 AM Signed Patient presents with: Pneumonia HPI: Patient presents today for office visit for follow up on Pneumonia. Still coughing. No chest pain. Some shortness of breath. Some wheezing. Completed abx. Overall is doing better. No fever or chills. Appetite is ok. Weight is down. Breathing is not perfect but is overall doing better. Not coughing up blood. Still some occasional sputum. No nausea or vomiting or diarrhea. Has repeat xray and blood work ordered. See previous note: Not coughing as much. This morning is the first morning did not cough any blood up. Can lie flat again. Finished ATB. Had added amoxil to the doxycycline. Has a lot of congestion. No fever. Still somewhat winded. Has a hx of previous PE. Has finished prednisone. Previous chest xray IMPRESSION: Small hazy opacities overlying the left lower lung. Consider short-term follow-up. MEDICATIONS: Latest Ref Rng 06/24/2024 WBC 3.70 - 11.00 k/uL 7.38 RBC 4.20 - 6.00 m/uL 5.71 Hemoglobin 13.0 - 17.0 g/dL 16.4 Hematocrit 39.0 - 51.0 % 49.5 MCV 80.0 - 100.0 fL 86.7 MCH 26.0 - 34.0 pg 28.7 MCHC 30.5 - 36.0 g/dL 33.1 RDW-CV 11.5 - 15.0 % 13.3 Platelet Count 150 - 400 k/uL 242 MPV 9.0 - 12.7 fL 11.4 Neut% % 73.8 Abs Neut (ANC) 1.45 - 7.50 k/uL 5.44 Lymph% % 16.3 Abs Lymph 1.00 - 4.00 k/uL 1.20 [place]% % 8.1 Abs [place] <0.87 k/uL 0.60 Eosin% % 0.9 Abs Eosin <0.46 k/uL 0.07 Baso% % 0.5 Abs Baso <0.11 k/uL 0.04 Immature Gran % % 0.4 IMMATURE GRANS (ABS) <0.10 k/uL 0.03 NRBC /100 WBC 0.0 Absolute nRBC <0.01 k/uL <0.01 DTYPE Auto Glucose 74 - 99 mg/dL 167 (H) BUN 9 - 24 mg/dL 17 Creatinine 0.73 - 1.22 mg/dL 1.11 Sodium 136 - 144 mmol/L 138 Potassium 3.7 - 5.1 mmol/L 3.6 (L) Chloride 98 - 107 mmol/L 100 CO2 22 - 30 mmol/L 25 Anion Gap 8 - 15 mmol/L 13 Calcium 8.5 - 10.2 mg/dL 9.6 eGFR >=60 mL/min/1.73m? 73 d Dimer <500 ng/mL FEU 290 D Dimer Age-related Cutoff ng/mL FEU 660 Legend: (H) High (L) Low ALLERGIES: ALLERGIES Allergen Reactions Sulfa (Sulfonamide * [...] Right 1988 LAPS SURG CHOLECYSTECTOMY W/CHOLANGIOGRAPHY 2004 [facility] - Dr. Bales OPEN REPAIR OF ROTATOR CUFF ACUTE Rotator cuff repair PERCUTANEOUS CORONARY INTERVENTION 2007 stent to LAD REPAIR EPIGASTRIC HERNIA,REDUC 07/19/2023 umbilical TONSILLECTOMY PRIMARY/SECONDARY Tonsillectomy FAMILY HISTORY Problem Relation Age of Onset Hypertension Mother Heart Mother Stroke Mother Allergies Mother Breast Cancer Mother Heart Father of [place] Allergies Father Asthma Daughter Allergies Sister Allergies Brother Allergies Daughter Social History Tobacco Use Smoking status: Former Current packs/day: 0.00 Average packs/day: 2.0 packs/day for 5.0 years (10.0 ttl pk-yrs) Types: Cigarettes Start date: 02/08/1982 Quit date: 02/08/1987 Years since quittin.4 Smokeless tobacco: Former Types: Chew Quit date: 12/03/2017 Tobacco comments: patient smoked for a few months in 2006 Quit chew June 2022 Vaping Use Vaping status: Never Used Substance Use Topics Alcohol use: Not Currently Drug use: Not Currently Comment: marijuana in past not since 20 y/o Reviewed current m (more content not included)... Normal [facility] HbA1c (Bld)on 07-08-2024 Average glucose Estimated from glycated hemoglobin (Bld) [Mass/Vol] 103 mg/dL Normal [facility] Comment on above: Order Comment: Dunia peters Type: BLOOD SPECIMENOrdering Facility: [facility] Address: [address] [place] [address] Result Comment: eAG: (Estimated average glucose) is a calculated value from HgbA1c and is utility sales representative of the average blood glucose level in the last 2-3 month period. Performed By: #### 5 5454-3 ####[facility] [id number] [facility] [id number] [place] [address] [place] HbA1c (Bld) [Mass fraction] 5.2 % Normal 4.3-5.6 [facility] Comment on above: Order Comment: Dunia peters Type: BLOOD SPECIMENOrdering Facility: [facility] Address: [address] [place] [address] Result Comment: [place] Diabetes Association guidelines indicate that patients with HgbA1c in the range 5.7-6.4% are at increased risk for development of diabetes, and intervention by lifestyle modification may be beneficial. HgbA1c greater or equal to 6.5% is considered diagnostic of diabetes. Performed By: #### 5 5454-3 ####[facility] [id number] [place] [id number] [place] POTASSIUMon 07-08-2024 Potassium [Moles/Vol] 4.1 mmol/L Normal 3.7-5.1 [facility] Comment on above: Order Comment: Speci men Type: BLOOD SPECIMENOrdering Facility: [facility] Address: [address] [place] [address] Performed By: #### K 1 ####[facility] [id number] [place] [address] [place] XR CHEST 2V FRONTAL/LATon XR CHEST 2V FRONTAL/LAT * * *Final Report* * * DATE OF EXAM: Jul 08 2024 10:12AM WOX [id number] - XR CHEST 2V FRONTAL/LAT / PROCEDURE REASON: Bacterial pneumonia * * * * Physician Interpretation * * * * EXAMINATION: CHEST RADIOGRAPH (2 VIEW FRONTAL and LATERAL) CLINICAL HISTORY: Bacterial pneumonia MQ: XC2_6 EXAM DATE/TIME: 07/08/2024 10:12 AM COMPARISON: Chest x-ray on 06/17/2024 RESULT: Lines, tubes, and devices: There is a spinal cord stimulator in place. Lungs and pleura: Interval resolution/near total resolution of small hazy opacities in the left lower lung. No new consolidation. No lung mass. No pleural effusion. No pneumothorax. Cardiomediastinal silhouette: Stable cardiomediastinal silhouette. Bones and soft tissues: Mild degenerative changes changes noted in the spine. IMPRESSION: Interval resolution/near total resolution of small hazy opacities in the left lower lung. Mobile Pet Groomer: OSMAIN Transcribe Date/Time: Jul 08 2024 11:41A Dictated by : LETTY THOMAS MD This examination was interpreted and the report reviewed and electronically signed by: LETTY THOMAS MD on Jul 08 2024 11:43AM EST [id number] Normal [facility] XR Chest PA and Lateralon IMPRESSION: Interval resolution/near total resolution of small hazy opacities in the left lower lung. Mobile Pet Groomer: OSMANI Transcribe Date/Time: Jul 08 2024 11:41A Dictated by : LETTY THOMAS MD This examination was interpreted and the report reviewed and electronically signed by: LETTY THOMAS MD on Jul 08 2024 11:43AM EST DIVISION OF RADIOLOGY * * *Final Report* * * DATE OF EXAM: Jul 08 2024 10:12AM WOX [id number] - XR CHEST 2V FRONTAL/LAT / PROCEDURE REASON: Bacterial pneumonia * * * * Physician Interpretation * * * * EXAMINATION: CHEST RADIOGRAPH (2 VIEW FRONTAL & LATERAL) CLINICAL HISTORY: Bacterial pneumonia MQ: XC2_6 EXAM DATE/TIME: 07/08/2024 10:12 AM COMPARISON: Chest x-ray on 06/17/2024 RESULT: Lines, tubes, and devices: There is a spinal cord stimulator in place. Lungs and pleura: Interval resolution/near total resolution of small hazy opacities in the left lower lung. No new consolidation. No lung mass. No pleural effusion. No pneumothorax. Cardiomediastinal silhouette: Stable cardiomediastinal silhouette. Bones and soft tissues: Mild degenerative changes changes noted in the spine. DIVISION OF RADIOLOGY Provider, [facility] - 07/08/2024 * * *Final Report* * * DATE OF EXAM: Jul 08 2024 10:12AM WOX [id number] - XR CHEST 2V FRONTAL/LAT / PROCEDURE REASON: Bacterial pneumonia * * * * Physician Interpretation * * * * EXAMINATION: CHEST RADIOGRAPH (2 VIEW FRONTAL & LATERAL) CLINICAL HISTORY: Bacterial pneumonia MQ: XC2_6 EXAM DATE/TIME: 07/08/2024 10:12 AM COMPARISON: Chest x-ray on 06/17/2024 RESULT: Lines, tubes, and devices: There is a spinal cord stimulator in place. Lungs and pleura: Interval resolution/near total resolution of small hazy opacities in the left lower lung. No new consolidation. No lung mass. No pleural effusion. No pneumothorax. Cardiomediastinal silhouette: Stable cardiomediastinal silhouette. Bones and soft tissues: Mild degenerative changes changes noted in the spine. IMPRESSION IMPRESSION: Interval resolution/near total resolution of small hazy opacities in the left lower lung. Mobile Pet Groomer: OSMANI Transcribe Date/Time: Jul 08 2024 11:41A Dictated by : LETTY THOMAS MD This examination was interpreted and the report reviewed and electronically signed by: LETTY THOMAS MD on Jul 08 2024 11:43AM EST [facility] Radiology Study observation (narrative) [facility] XR Chest PA and LateralOrder ed By: [facility] Provider on 07-08-2024 [facility] CNPNon 06-25-2024 CNPN Telephone (FAMPWS) LAZARO GARZON ([id number]) 1955 Date Time Provider Department 06/25/24 [facility] During your visit today, we recorded the following information about you: Jagjit Cheema MD 06/25/2024 9:00 AM Signed His labs are overall ok other than potassium is slightly low. Make sure taking his potassium. His sugar is up although that could be residual from his prednisone. Let me know about the potassium . Either way I would recheck labs in two weeks. Jerilyn Henry MA 06/25/2024 9:54 AM Signed Patient informed. He has been taking his potassium faithfully. Has not missed doses. Knows that his numbers have been trending low. He is wondering if he should increase the potassium? Advised him to repeat labs in two weeks. He verbalized understanding. HAWA Aguilera William J, MD 06/25/2024 12:38 PM Signed If not taking a water pill should not necessarily require constant potassium. Can come from things like diarrhea or vomiting as well. Lets recheck and see what the numbers show Sincere Pickard RN 06/25/2024 2:48 PM Signed Phoned pt and given provider's message below with verbalized understanding. Pt agreeable. Allergies As of Date: 06/25/2024 Noted Allergy Reaction SULFA (SULFONAMIDE ANTIBIOTICS) 03/10/2005 2 - Rash Date Reviewed: 06/24/2024 Reviewed by: Brandie Lange LPN - Fully Assessed Reason for Visit: Results [95] Primary Visit Diagnosis:Hyperglycemia [R73.9] Other Visit Diagnosis:Hypokalemia [E87.6] Order(s):POTASSIUM [SQK1] Order #: [id number] FUTURE HEMOGLOBIN A1C [IHKFG2R] Order #: [id number] FUTURE Prescriptions as of 06/25/2024 - doxycycline monohydrate 100 mg tablet Take 1 tablet by mouth two times a day for 7 days. - amoxicillin (AMOXIL) 875 mg tablet Take 1 tablet by mouth two times a day for 7 days. - predniSONE (DELTASONE) 20 mg tablet Take 1 tablet by mouth once daily for 5 days. Take daily with food. - albuterol HFA (PROAIR HFA) 90 mcg/actuation inhaler Inhale 2 Puffs as instructed every 4 hours as needed (FOR COUGH OR WHEEZE). - benzonatate (TESSALON PERLE) 100 mg capsule Take 2 capsules by mouth three times a day as needed. - meclizine (ANTIVERT) 25 mg tab Take 1 tablet by mouth three times a day as needed (dizziness). - aspirin, enteric coated (ASPIRIN, ENTERIC COATED) 81 mg EC tablet Take 1 tablet by mouth once daily. - potassium chloride (K-TAB) 10 mEq tablet Take 2 tablets by mouth once daily. - atomoxetine (STRATTERA) 100 mg capsule Take 1 capsule by mouth once daily. - tamsulosin (FLOMAX) 0.4 mg - esomeprazole (NEXIUM) 40 mg capsule Take 1 capsule by mouth two times a day before meals. - losartan (COZAAR) 50 mg tablet Take 1 tablet by mouth once daily. - atorvastatin (LIPITOR) 20 mg tablet Take 1 tablet by mouth daily at bedtime. For cholesterol. - amLODIPine (NORVASC) 5 mg tablet Take 1 tablet by mouth once daily. - testosterone (ANDROGEL PUMP) 20.25 mg/1.25 gram (1.62 %) transdermal gel APPLY 4 PUMPS TOPICALLY DAILY. - oxyCODONE-acetaminophen 5-325 mg (PERCOCET) as needed. - CPAP Requires replacement machine at same settings. - Cholecalciferol, Vitamin D3, (VITAMIN D) 1,000 unit cap Take 1 capsule by mouth once daily. - cyanocobalamin (VITAMIN B-12) 1,000 mcg tab Take 1,000 mcg by mouth once daily. - MULTIVITAMIN TAB Take one(1) tablet daily BY MOUTH. Problem List As Of Date 06/25/2024 Noted Resolved Hyperlipidemia [E78.5] 09/30/2005 Palpitations [R00.2] 09/30/2005 07/13/2018 Shortness of breath [R06.02] 02/08/2007 07/13/2018 Diaphragmatic hernia without mention of obstruc*05/24/2011 Esophageal reflux [K21.9] 05/24/2011 Asbestos exposure [Z77.090] 03/20/2012 Essential hypertension, benign [I10] 03/20/2012 07/26/2023 Pulmonary embolism (HCC) [I26.99] 10/11/2013 10/25/2022 Hyperhydrosis disorder [R61] 12/25/2013 Low testosterone [R79.89] 12/25/2013 07/26/2023 CAD (coronary artery disease) s/p PTCA/STENT. *12/25/2013 Sleep apnea [G47.30] 12/25/2013 Peyronie's disease [N48.6] 11/05/2014 Impotence of organic origin [N52.9] 11/05/2014 07/26/2023 Asthma [J45.909] 05/06/2016 03/08/2024 Adrenal nodule (HCC) [E27.9] 05/06/2016 Lung nodule [R91.1] 05/06/2016 Hypokalemia [E87.6] 09/13/2017 Polyarthritis [M13.0] 09/14/2017 Spinal stenosis of lumbar region with neurogeni*06/22/2020 Neural foraminal stenosis of cervical spine [M4*06/22/2020 Atrial flutter (HCC) [I48.92] 09/22/2022 History of pulmonary embolism [Z86.711] 10/25/2022 Gastric intestinal metaplasia [K31.A0] 12/01/2022 History of colonic polyps [Z86.0100] 12/01/2022 Morbid obesity (HCC) [E66.01] 07/05/2023 07/26/2023 Former tobacco use [Z87.891] 07/05/2023 History of TIAs [Z86.73] 07/05/2023 Peripheral neuropathy [G62.9] 07/05/2023 07/26/2023 Obesity, Class III, BMI >= 40 [E66.01] 07/16/2023 07/26/2023 Abnormal card (more content not included)... Normal [facility] Basic metabolic 2000 panelon 06-24-2024 Anion gap [Moles/Vol] 13 mmol/L Normal 8-15 [facility] Comment on above: Order Comment: Speci men Type: BLOOD SPECIMENOrdering Facility: [facility] Address: [address] [place] [address] Performed By: #### 2 4321-2 ####[facility] [id number] [place] [address] [place] Calcium [Mass/Vol] 9.6 mg/dL Normal 8.5-10.2 [facility] Comment on above: Order Comment: Speci men Type: BLOOD SPECIMENOrdering Facility: [facility] Address: [address] [place] [address] Performed By: #### 2 4321-2 ####[facility] [id number] [place] [address] [place] Chloride [Moles/Vol] 100 mmol/L Normal 98-107 [facility] Comment on above: Order Comment: Speci men Type: BLOOD SPECIMENOrdering Facility: [facility] Address: [address] [place] [address] Performed By: #### 2 4321-2 ####[facility] [id number] [place] [address] [place] CO2 [Moles/Vol] 25 mmol/L Normal 22-30 [facility] Comment on above: Order Comment: Speci men Type: BLOOD SPECIMENOrdering Facility: [facility] Address: [address] [place] [address] Performed By: #### 2 4321-2 ####[facility] [id number] [place] [address] [place] Creatinine [Mass/Vol] 1.11 mg/dL Normal 0.73-1.22 [facility] Comment on above: Order Comment: Speci men Type: BLOOD SPECIMENOrdering Facility: [facility] Address: [address] [place] [address] Performed By: #### 2 4321-2 ####[facility] [id number] [place] [address] [place] Creatinine and Glomerular filtration rate.predicted panel (S/P/Bld) 73 mL/min/1.73m??? Normal >=60 [facility] Comment on above: Order Comment: Speci men Type: BLOOD SPECIMENOrdering Facility: [facility] Address: [address] [place] [address] Result Comment: Jayshree mated Glomerular Filtration Rate (eGFR) is calculated using the 2020 CKD-EPI creatinine equation. This equation utilizes serum creatinine, sex, and age as parameters. The creatinine assay has traceable calibration to isotope dilution-mass spectrometry. Refer to KDIGO guidelines for clinical interpretation. In patients with unstable renal function, e.g. those with acute kidney injury, the eGFR may not accurately reflect actual GFR. Performed By: #### 2 4321-2 ####[facility] [id number] [place] [id number] [place] Glucose [Mass/Vol] 167 mg/dL High 74-99 [facility] Comment on above: Order Comment: Speci men Type: BLOOD SPECIMENOrdering Facility: [facility] Address: [address] [place] [address] Result Comment: The [place] Diabetes Association (ADA) provides guidance for cutoff values for fasting glucose and random glucose. The ADA defines fasting as no caloric intake for at least 8 hours. Fasting plasma glucose results between 100 to 125 [...] Standards of Medical Care in Diabetes 2016, [place] Diabetes Association. Diabetes Care. 2016.39(Suppl 1). Performed By: #### 2 4321-2 ####[facility] [id number] [place] [address] [place] Potassium [Moles/Vol] 3.6 mmol/L Low 3.7-5.1 [facility] Comment on above: Order Comment: Speci men Type: BLOOD SPECIMENOrdering Facility: [facility] Address: [address] [place] [address] Performed By: #### 2 4320-2 ####[facility] [id number] [place] [address] [place] Sodium [Moles/Vol] 138 mmol/L Normal 136-144 [facility] Comment on above: Order Comment: Paragi men Type: BLOOD SPECIMENOrdering Facility: [facility] Address: [address] [place] [address] Performed By: #### 2 1-2 ####[facility] [id number] [place] [address] [place] Urea nitrogen [Mass/Vol] 17 mg/dL Normal 9-24 [facility] Comment on above: Order Comment: Paragi men Type: BLOOD SPECIMENOrdering Facility: [facility] Address: [address] [place] [address] Performed By: #### 2 4321-2 ####[facility] [id number] [place] [address] [place] CBC W Auto Differential pane l (Bld)on 06-24-2024 Basophils (Bld) [#/Vol] 0.04 10*3/uL Normal <0.11 [facility] Comment on above: Order Comment: Speci men Type: BLOOD SPECIMENOrdering Facility: [facility] Address: [address] [place] [address] Performed By: #### 5 7021-8 ####[facility] [id number] [place] [address] [place] Basophils/100 WBC (Bld) 0.5 % Normal [facility] Comment on above: Order Comment: Speci men Type: BLOOD SPECIMENOrdering Facility: [facility] Address: [address] [place] [address] Performed By: #### 5 7021-8 ####[facility] [id number] [place] [address] [place] Differential cell count method Nom (Bld) Auto Normal [facility] Comment on above: Order Comment: Speci men Type: BLOOD SPECIMENOrdering Facility: [facility] Address: [address] [place] [address] Performed By: #### 5 7021-8 ####[facility] [id number] [place] [address] [place] Eosinophils (Bld) [#/Vol] 0.07 10*3/uL Normal <0.46 [facility] Comment on above: Order Comment: Speci men Type: BLOOD SPECIMENOrdering Facility: [facility] Address: [address] [place] [address] Performed By: #### 5 7021-8 ####[facility] [id number] [place] [address] [place] Eosinophils/100 WBC (Bld) 0.9 % Normal [facility] Comment on above: Order Comment: Speci men Type: BLOOD SPECIMENOrdering Facility: [facility] Address: [address] [place] [address] Performed By: #### 5 7021-8 ####[facility] [id number] [place] [address] [place] Erythrocyte distribution width (RBC) [Ratio] 13.3 % Normal 11.5-15.0 [facility] Comment on above: Order Comment: Speci men Type: BLOOD SPECIMENOrdering Facility: [facility] Address: [address] [place] [address] Performed By: #### 5 7021-8 ####[facility] [id number] [place] [address] [place] Hematocrit (Bld) [Volume fraction] 49.5 % Normal 39.0-51.0 [facility] Comment on above: Order Comment: Speci men Type: BLOOD SPECIMENOrdering Facility: [facility] Address: [address] [place] [address] Performed By: #### 5 7021-8 ####[facility] [id number] [place] [address] [place] Hemoglobin (Bld) [Mass/Vol] 16.4 g/dL Normal 13.0-17.0 [facility] Comment on above: Order Comment: Speci men Type: BLOOD SPECIMENOrdering Facility: [facility] Address: [address] [place] [address] Performed By: #### 5 7021-8 ####[facility] [id number] [place] [address] [place] Immature granulocytes (Bld) [#/Vol] 0.03 10*3/uL Normal <0.10 [facility] Comment on above: Order Comment: Speci men Type: BLOOD SPECIMENOrdering Facility: [facility] Address: [address] [place] [address] Performed By: #### 5 7021-8 ####[facility] [id number] [place] [address] [place] Immature granulocytes/100 WBC (Bld) 0.4 % Normal [facility] Comment on above: Order Comment: Speci men Type: BLOOD SPECIMENOrdering Facility: [facility] Address: [address] [place] [address] Performed By: #### 5 7021-8 ####[facility] [id number] [place] [address] [place] Lymphocytes (Bld) [#/Vol] 1.20 10*3/uL Normal 1.00-4.00 [facility] Comment on above: Order Comment: Speci men Type: BLOOD SPECIMENOrdering Facility: [facility] Address: [address] [place] [address] Performed By: #### 5 7021-8 ####[facility] [id number] [place] [address] [place] Lymphocytes/100 WBC (Bld) 16.3 % Normal [facility] Comment on above: Order Comment: Speci men Type: BLOOD SPECIMENOrdering Facility: [facility] Address: [address] [place] [address] Performed By: #### 5 7021-8 ####[facility] [id number] [place] [address] [place] MCH (RBC) [Entitic mass] 28.7 pg Normal 26.0-34.0 [facility] Comment on above: Order Comment: Speci men Type: BLOOD SPECIMENOrdering Facility: [facility] Address: [address] [place] [address] Performed By: #### 5 7021-8 ####[facility] [id number] [place] [address] [place] MCHC (RBC) [Mass/Vol] 33.1 g/dL Normal 30.5-36.0 [facility] Comment on above: Order Comment: Speci men Type: BLOOD SPECIMENOrdering Facility: [facility] Address: [address] [place] [address] Performed By: #### 5 7021-8 ####[facility] [id number] [place] [address] [place] MCV (RBC) [Entitic vol] 86.7 fL Normal 80.0-100.0 [facility] Comment on above: Order Comment: Speci men Type: BLOOD SPECIMENOrdering Facility: [facility] Address: [address] [place] [address] Performed By: #### 5 7021-8 ####[facility] [id number] [place] [address] [place] Monocytes (Bld) [#/Vol] 0.60 10*3/uL Normal <0.87 [facility] Comment on above: Order Comment: Speci men Type: BLOOD SPECIMENOrdering Facility: [facility] Address: [address] [place] [address] Performed By: #### 5 7021-8 ####[facility] [id number] [place] [address] [place] Monocytes/100 WBC (Bld) 8.1 % Normal [facility] Comment on above: Order Comment: Speci men Type: BLOOD SPECIMENOrdering Facility: [facility] Address: [address] [place] [address] Performed By: #### 5 7021-8 ####[facility] [id number] [place] [address] [place] Neutrophils (Bld) [#/Vol] 5.44 10*3/uL Normal 1.45-7.50 [facility] Comment on above: Order Comment: Speci men Type: BLOOD SPECIMENOrdering Facility: [facility] Address: [address] [place] [address] Performed By: #### 5 7021-8 ####[facility] [id number] [place] [address] [place] Neutrophils/100 WBC (Bld) 73.8 % Normal [facility] Comment on above: Order Comment: Speci men Type: BLOOD SPECIMENOrdering Facility: [facility] Address: [address] [place] [address] Performed By: #### 5 7021-8 ####[facility] [id number] [place] [address] [place] Nucleated RBC (Bld) [#/Vol] 10*3/uL Normal <0.01 [facility] Comment on above: Order Comment: Speci men Type: BLOOD SPECIMENOrdering Facility: [facility] Address: [address] [place] [address] Performed By: #### 5 7021-8 ####[facility] [id number] [place] [address] [place] Nucleated RBC/100 WBC (Bld) [Ratio] 0.0 /100 WBC Normal [facility] Comment on above: Order Comment: Speci men Type: BLOOD SPECIMENOrdering Facility: [facility] Address: [address] [place] [address] Performed By: #### 5 7021-8 ####[facility] [id number] [place] [address] [place] Platelet mean volume (Bld) [Entitic vol] 11.4 fL Normal 9.0-12.7 [facility] Comment on above: Order Comment: Speci men Type: BLOOD SPECIMENOrdering Facility: [facility] Address: [address] [place] [address] Performed By: #### 5 7021-8 ####[facility] [id number] [place] [address] [place] Platelets (Bld) [#/Vol] 242 10*3/uL Normal 150-400 [facility] Comment on above: Order Comment: Speci men Type: BLOOD SPECIMENOrdering Facility: [facility] Address: [address] [place] [address] Performed By: #### 5 7021-8 ####[facility] [id number] [place] [id number] [place] RBC (Bld) [#/Vol] 5.71 10*6/uL Normal 4.20-6.00 [facility] Comment on above: Order Comment: Speci men Type: BLOOD SPECIMENOrdering Facility: [facility] Address: [address] [place] [address] Performed By: #### 5 7021-8 ####[facility] [id number] [place] [address] [place] WBC (Bld) [#/Vol] 7.38 10*3/uL Normal 3.70-11.00 [facility] Comment on above: Order Comment: Speci men Type: BLOOD SPECIMENOrdering Facility: [facility] Address: [address] [place] [address] Performed By: #### 5 7021-8 ####[facility] [id number] [place] [address] [place] CNOVon 06-24-2024 CNOV Office Visit (FAMPWS ) LAZARO GARZON ([id number]) 1955 Sincere Date Time Provider Department 06/24/24 9:00 AM JAGJIT CHEEMA During your visit today, we recorded the following information about you: Temperature Pulse Blood pressure Weight 97.2 degrees 88/minute 140/72 149.7 kg Jagjit Cheema MD 06/24/2024 9:26 AM Signed Patient presents with: Cough HPI: Patient presents today for office visit for follow up. Not coughing as much. This morning is the first morning did not cough any blood up. Can lie flat again. Finished ATB. Had added amoxil to the doxycycline. Has a lot of congestion. No fever. Still somewhat winded. Has a hx of previous PE. Has finished prednisone. See previous xray IMPRESSION: Small hazy opacities overlying the left lower lung. Consider short-term follow-up. MEDICATIONS: Current Outpatient Medications Medication Sig albuterol HFA (PROAIR HFA) 90 mcg/actuation inhaler Inhale 2 Puffs as instructed every 4 hours as needed (FOR COUGH OR WHEEZE). amoxicillin (AMOXIL) 875 mg tablet Take 1 tablet by mouth two times a day for 7 days. benzonatate (TESSALON PERLE) 100 mg capsule Take 2 capsules by mouth three times a day as needed. meclizine (ANTIVERT) 25 mg tab Take 1 tablet by mouth three times a day as needed (dizziness). (Patient not taking: Reported on 06/13/2024) aspirin, enteric coated (ASPIRIN, ENTERIC COATED) 81 mg EC tablet Take 1 tablet by mouth once daily. potassium chloride (K-TAB) 10 mEq tablet Take 2 tablets by mouth once daily. atomoxetine (STRATTERA) 100 mg capsule Take 1 capsule by mouth once daily. tamsulosin (FLOMAX) 0.4 mg esomeprazole (NEXIUM) 40 mg capsule Take 1 capsule by mouth two times a day before meals. losartan (COZAAR) 50 mg tablet Take 1 tablet by mouth once daily. atorvastatin (LIPITOR) 20 mg tablet Take 1 tablet by mouth daily at bedtime. For cholesterol. amLODIPine (NORVASC) 5 mg tablet Take 1 tablet by mouth once daily. testosterone (ANDROGEL PUMP) 20.25 mg/1.25 gram (1.62 %) transdermal gel APPLY 4 PUMPS TOPICALLY DAILY. oxyCODONE-acetaminophen 5-325 mg (PERCOCET) as needed. CPAP Requires replacement machine at same settings. [...] Right 1988 LAPS SURG CHOLECYSTECTOMY W/CHOLANGIOGRAPHY 2004 [facility] - Dr. 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 EPIGASTRIC HERNIA,REDUC 07/19/2023 umbilical TONSILLECTOMY PRIMARY/SECONDARY Tonsillectomy FAMILY HISTORY Problem Relation Age of Onset Hypertension Mother Heart Mother Stroke Mother Allergies Mother Breast Cancer Mother Heart Father of [place] Allergies Father Asthma Daughter Allergies Sister Allergies Brother Allergies Daughter Social History Tobacco Use Smoking status: Former Current packs/day: 0.00 Average packs/day: 2.0 packs/day for 5.0 years (10.0 ttl pk-yrs) Types: Cigarettes Start date: 02/08/1982 Quit date: 02/08/1987 Years since quittin.4 Smokeless tobacco: Former Types: Chew Quit date: 12/03/2017 Tobacco comments: patient smoked for a few months in 2006 Quit chew June 2022 Vaping Use Vap (more content not included)... Normal [facility] D dimer FEU PPP-mCncon 06-24 Fibrin D-dimer FEU (PPP) [Mass/Vol] 290 ng/mL FEU Normal <500 [facility] Comment on above: Order Comment: Speci men Type: BLOOD SPECIMENOrdering Facility: [facility] Address: [address] [place] [address] Performed By: #### 4 8065-7 ####[facility] [id number] [place] [address] [facility] D-DIMERon 06-24-2024 Fibrin D-dimer FEU (PPP) [Mass/Vol] 290 [facility] Fibrin D-dimer FEU (PPP) [Ma ss/Vol]on 06-24-2024 D Dimer Age-related Cutoff 660 ng/mL FEU [facility] 500 ng/mL FEU is the D Dimer cutoff to exclude DVT (deep vein thrombosis) and PE (pulmonary embolism) in patients with a low pre test probability. Supplemental Comment: In patients over 50 years with a low pre test probability for DVT and/or PE, an age adjusted D dimer cutoff can be calculated as [age x 10] ng/mL FEU. For example, a patient of 88 years would have an age adjusted D dimer cutoff of 880 ng/mL FEU. For patients with a suspected DVT, a D dimer level below 500 ng/mL FEU has a negative predictive value of >98.9%, a sensitivity of >96.9% and a specificity of >35.7%. For patients with a suspected PE, a D dimer level below 500 ng/mL FEU has a negative predictive value of >98.5%, and a sensitivity of >96.5% and a specificity of >38.8%. Reference: Jerry M, et al. DAMON 2014 311:1117 and Van Loyd N, et al. Fanny Int Med 2016 165:253. [facility] D DIMER AGE-RELATED CUTOFF 660 ng/mL FEU Normal [facility] Comment on above: Order Comment: Speci men Type: BLOOD SPECIMENOrdering Facility: [facility] Address: [address] [place] [address] Performed By: #### 4 8065-7 ####[facility] [place] [id number] [place] [address] [facility] CNOVon 06-17-2024 CNOV Office Visit (FAMPWS ) DURANLAZARO Trujillo ([id number]) 1955 M Date Time Provider Department 06/17/24 2:20 PM [facility] During your visit today, we recorded the following information about you: Temperature Pulse Blood pressure Weight 100.1 degrees 79/minute 152/92 152 kg Jagjit Cheema MD 06/17/2024 2:53 PM Signed Patient presents with: Cough HPI: Patient presents today for office visit for follow up. Not feeling any better actually feeling worse. Waking up with trouble breathing. No current shortness of breath at rest. Is winded if up and moving around. Has been ill a few weeks. No covid testing done. Feels wheezy Low grade fever. No nausea or vomiting or diarrhea. Has had some purulent sputum. Did note slight blood in it. Has issues with waking up winded. No chest pain or edema. Using tessalon and mucinex. Note was copied and pasted, without alteration from: previous ov. ASSESSMENT/PLAN: 1. Rhinosinusitis - ICD9: 473.9, ICD10: J32.9 - Will begin treatment with Doxycycline - Supportive care with plenty of fluids, rest, and analgesia prn. - Follow up in one week if symptoms persist or worsen. MEDICATIONS: Current Outpatient Medications Medication Sig doxycycline (VIBRA-TABS) 100 mg tablet Take 1 tablet by mouth two times a day for 7 days. benzonatate (TESSALON PERLE) 100 mg capsule Take 2 capsules by mouth three times a day as needed. meclizine (ANTIVERT) 25 mg tab Take 1 tablet by mouth three times a day as needed (dizziness). (Patient not taking: Reported on 06/13/2024) aspirin, enteric coated (ASPIRIN, ENTERIC COATED) 81 mg EC tablet Take 1 tablet by mouth once daily. potassium chloride (K-TAB) 10 mEq tablet Take 2 tablets by mouth once daily. atomoxetine (STRATTERA) 100 mg capsule Take 1 capsule by mouth once daily. tamsulosin (FLOMAX) 0.4 mg esomeprazole (NEXIUM) 40 mg capsule Take 1 capsule by mouth two times a day before meals. losartan (COZAAR) 50 mg tablet Take 1 tablet by mouth once daily. albuterol HFA (PROAIR HFA) 90 mcg/actuation inhaler Inhale 2 Puffs as instructed every 4 hours as needed (FOR COUGH OR WHEEZE). atorvastatin (LIPITOR) 20 mg tablet Take 1 tablet by mouth daily at bedtime. For cholesterol. amLODIPine (NORVASC) 5 mg tablet Take 1 tablet by mouth once daily. testosterone (ANDROGEL PUMP) 20.25 mg/1.25 gram (1.62 %) transdermal gel APPLY 4 PUMPS TOPICALLY DAILY. oxyCODONE-acetaminophen 5-325 mg (PERCOCET) as needed. CPAP Requires replacement machine at same settings. [...] Right 1988 LAPS SURG CHOLECYSTECTOMY W/CHOLANGIOGRAPHY 2004 [facility] - Dr. 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 EPIGASTRIC HERNIA,REDUC 07/19/2023 umbilical TONSILLECTOMY PRIMARY/SECONDARY Tonsillectomy FAMILY HISTORY Problem Relation Age of Onset Hypertension Mother Heart Mother Stroke Mother Allergies Mother Breast Cancer Mother Heart Father of [place] Allergies Father Asthma Daughter Allergies Sister Allergies Brother Allergies Daughter Social History Tobacco Use Smoking status: Former Current p (more content not included)... Normal [facility] 06-17-2024 [facility] LAZARO GARZON ([id number]) 1955 M Date Time Provider Department 06/17/24 [facility] During your visit today, we recorded the following information about you: Jagjit Cheema MD 06/17/2024 3:46 PM Signed ?? Shows small pneumonia on left. Doxycycline should cover. Follow up with one of us next week. Use albuterol and prednisone Can add amoxil to be on the safe side to his doxy. Take both. Call if worsen at all. Brandie Lange LPN 06/17/2024 4:01 PM Signed Patient notified. Allergies As of Date: 06/17/2024 Noted Allergy Reaction SULFA (SULFONAMIDE ANTIBIOTICS) 03/10/2005 2 - Rash Date Reviewed: 06/17/2024 Reviewed by: Brandie Lange LPN - Fully Assessed Reason for Visit: Results [95] Order(s):amoxicillin (AMOXIL) 875 mg tabletTake 1 tablet by mouth two times a day for 7 days.Disp: 14 tabletRfl: 0 Prescriptions as of 06/17/2024 - predniSONE (DELTASONE) 20 mg tablet Take 1 tablet by mouth once daily for 5 days. Take daily with food. - albuterol HFA (PROAIR HFA) 90 mcg/actuation inhaler Inhale 2 Puffs as instructed every 4 hours as needed (FOR COUGH OR WHEEZE). - amoxicillin (AMOXIL) 875 mg tablet Take 1 tablet by mouth two times a day for 7 days. - doxycycline (VIBRA-TABS) 100 mg tablet Take 1 tablet by mouth two times a day for 7 days. - benzonatate (TESSALON PERLE) 100 mg capsule Take 2 capsules by mouth three times a day as needed. - meclizine (ANTIVERT) 25 mg tab Take 1 tablet by mouth three times a day as needed (dizziness). - aspirin, enteric coated (ASPIRIN, ENTERIC COATED) 81 mg EC tablet Take 1 tablet by mouth once daily. - potassium chloride (K-TAB) 10 mEq tablet Take 2 tablets by mouth once daily. - atomoxetine (STRATTERA) 100 mg capsule Take 1 capsule by mouth once daily. - tamsulosin (FLOMAX) 0.4 mg - esomeprazole (NEXIUM) 40 mg capsule Take 1 capsule by mouth two times a day before meals. - losartan (COZAAR) 50 mg tablet Take 1 tablet by mouth once daily. - atorvastatin (LIPITOR) 20 mg tablet Take 1 tablet by mouth daily at bedtime. For cholesterol. - amLODIPine (NORVASC) 5 mg tablet Take 1 tablet by mouth once daily. - testosterone (ANDROGEL PUMP) 20.25 mg/1.25 gram (1.62 %) transdermal gel APPLY 4 PUMPS TOPICALLY DAILY. - oxyCODONE-acetaminophen 5-325 mg (PERCOCET) as needed. - CPAP Requires replacement machine at same settings. - Cholecalciferol, Vitamin D3, (VITAMIN D) 1,000 unit cap Take 1 capsule by mouth once daily. - cyanocobalamin (VITAMIN B-12) 1,000 mcg tab Take 1,000 mcg by mouth once daily. - MULTIVITAMIN TAB Take one(1) tablet daily BY MOUTH. Problem List As Of Date 06/17/2024 Noted Resolved Hyperlipidemia [E78.5] 09/30/2005 Palpitations [R00.2] 09/30/2005 07/13/2018 Shortness of breath [R06.02] 02/08/2007 07/13/2018 Diaphragmatic hernia without mention of obstruc*05/24/2011 Esophageal reflux [K21.9] 05/24/2011 Asbestos exposure [Z77.090] 03/20/2012 Essential hypertension, benign [I10] 03/20/2012 07/26/2023 Pulmonary embolism (HCC) [I26.99] 10/11/2013 10/25/2022 Hyperhydrosis disorder [R61] 12/25/2013 Low testosterone [R79.89] 12/25/2013 07/26/2023 CAD (coronary artery disease) s/p PTCA/STENT. *12/25/2013 Sleep apnea [G47.30] 12/25/2013 Peyronie's disease [N48.6] 11/05/2014 Impotence of organic origin [N52.9] 11/05/2014 07/26/2023 Asthma [J45.909] 05/06/2016 03/08/2024 Adrenal nodule (HCC) [E27.9] 05/06/2016 Lung nodule [R91.1] 05/06/2016 Hypokalemia [E87.6] 09/13/2017 Polyarthritis [M13.0] 09/14/2017 Spinal stenosis of lumbar region with neurogeni*06/22/2020 Neural foraminal stenosis of cervical spine [M4*06/22/2020 Atrial flutter (HCC) [I48.92] 09/22/2022 History of pulmonary embolism [Z86.711] 10/25/2022 Gastric intestinal metaplasia [K31.A0] 12/01/2022 History of colonic polyps [Z86.0100] 12/01/2022 Morbid obesity (HCC) [E66.01] 07/05/2023 07/26/2023 Former tobacco use [Z87.891] 07/05/2023 History of TIAs [Z86.73] 07/05/2023 Peripheral neuropathy [G62.9] 07/05/2023 07/26/2023 Obesity, Class III, BMI >= 40 [E66.01] 07/16/2023 07/26/2023 Abnormal cardiovascular stress test [R94.39] 08/21/2012 07/26/2023 Diagnosed: 07/26/2023 Acute prostatitis [N41.0] 07/26/2023 07/26/2023 Diagnosed: 07/26/2023 Chest pain [R07.9] 07/10/2012 07/26/2023 Diagnosed: 07/26/2023 Confusional state [F44.89] 07/26/2023 07/26/2023 Diagnosed: 07/26/2023 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 [facility] LAZARO GARZON ([id number]) 1955 Sincere Date Time Provider Department 06/17/24 JAGJIT CHEEMA [facility] During your visit today, we recorded the following information about you: Radha Lawson 06/17/2024 10:42 AM Signed Patient calling in to request an order for an xray of his chest. He feels his cold going into his chest and has concerns of pneumonia. Please review and advise patient, okay to leave detailed message. Radha Lwason June 17, 2024 10:42 AM Brandie Lange LPN 06/17/2024 11:05 AM Signed He was seen in 06/13 and treated with Doxy. Jagjit Cheema MD 06/17/2024 11:27 AM Signed Needs to see one of us if that bad Brandie Lange LPN 06/17/2024 11:52 AM Signed Scheduled. Allergies As of Date: 06/17/2024 Noted Allergy Reaction SULFA (SULFONAMIDE ANTIBIOTICS) 03/10/2005 2 - Rash Date Reviewed: 06/13/2024 Reviewed by: Freda Carrillo MA - Fully Assessed Reason for Visit: Patient Question [9428] Orders [881] Prescriptions as of 06/17/2024 - doxycycline (VIBRA-TABS) 100 mg tablet Take 1 tablet by mouth two times a day for 7 days. - benzonatate (TESSALON PERLE) 100 mg capsule Take 2 capsules by mouth three times a day as needed. - meclizine (ANTIVERT) 25 mg tab Take 1 tablet by mouth three times a day as needed (dizziness). - aspirin, enteric coated (ASPIRIN, ENTERIC COATED) 81 mg EC tablet Take 1 tablet by mouth once daily. - potassium chloride (K-TAB) 10 mEq tablet Take 2 tablets by mouth once daily. - atomoxetine (STRATTERA) 100 mg capsule Take 1 capsule by mouth once daily. - tamsulosin (FLOMAX) 0.4 mg - esomeprazole (NEXIUM) 40 mg capsule Take 1 capsule by mouth two times a day before meals. - losartan (COZAAR) 50 mg tablet Take 1 tablet by mouth once daily. - albuterol HFA (PROAIR HFA) 90 mcg/actuation inhaler Inhale 2 Puffs as instructed every 4 hours as needed (FOR COUGH OR WHEEZE). - atorvastatin (LIPITOR) 20 mg tablet Take 1 tablet by mouth daily at bedtime. For cholesterol. - amLODIPine (NORVASC) 5 mg tablet Take 1 tablet by mouth once daily. - testosterone (ANDROGEL PUMP) 20.25 mg/1.25 gram (1.62 %) transdermal gel APPLY 4 PUMPS TOPICALLY DAILY. - oxyCODONE-acetaminophen 5-325 mg (PERCOCET) as needed. - CPAP Requires replacement machine at same settings. - Cholecalciferol, Vitamin D3, (VITAMIN D) 1,000 unit cap Take 1 capsule by mouth once daily. - cyanocobalamin (VITAMIN B-12) 1,000 mcg tab Take 1,000 mcg by mouth once daily. - MULTIVITAMIN TAB Take one(1) tablet daily BY MOUTH. Problem List As Of Date 06/17/2024 Noted Resolved Hyperlipidemia [E78.5] 09/30/2005 Palpitations [R00.2] 09/30/2005 07/13/2018 Shortness of breath [R06.02] 02/08/2007 07/13/2018 Diaphragmatic hernia without mention of obstruc*05/24/2011 Esophageal reflux [K21.9] 05/24/2011 Asbestos exposure [Z77.090] 03/20/2012 Essential hypertension, benign [I10] 03/20/2012 07/26/2023 Pulmonary embolism (HCC) [I26.99] 10/11/2013 10/25/2022 Hyperhydrosis disorder [R61] 12/25/2013 Low testosterone [R79.89] 12/25/2013 07/26/2023 CAD (coronary artery disease) s/p PTCA/STENT. *12/25/2013 Sleep apnea [G47.30] 12/25/2013 Peyronie's disease [N48.6] 11/05/2014 Impotence of organic origin [N52.9] 11/05/2014 07/26/2023 Asthma [J45.909] 05/06/2016 03/08/2024 Adrenal nodule (HCC) [E27.9] 05/06/2016 Lung nodule [R91.1] 05/06/2016 Hypokalemia [E87.6] 09/13/2017 Polyarthritis [M13.0] 09/14/2017 Spinal stenosis of lumbar region with neurogeni*06/22/2020 Neural foraminal stenosis of cervical spine [M4*06/22/2020 Atrial flutter (HCC) [I48.92] 09/22/2022 History of pulmonary embolism [Z86.711] 10/25/2022 Gastric intestinal metaplasia [K31.A0] 12/01/2022 History of colonic polyps [Z86.0100] 12/01/2022 Morbid obesity (HCC) [E66.01] 07/05/2023 07/26/2023 Former tobacco use [Z87.891] 07/05/2023 History of TIAs [Z86.73] 07/05/2023 Peripheral neuropathy [G62.9] 07/05/2023 07/26/2023 Obesity, Class III, BMI >= 40 [E66.01] 07/16/2023 07/26/2023 Abnormal cardiovascular stress test [R94.39] 08/21/2012 07/26/2023 Diagnosed: 07/26/2023 Acute prostatitis [N41.0] 07/26/2023 07/26/2023 Diagnosed: 07/26/2023 Chest pain [R07.9] 07/10/2012 07/26/2023 Diagnosed: 07/26/2023 Confusional state [F44.89] 07/26/2023 07/26/2023 Diagnosed: 07/26/2023 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 Normal [facility] XR CHEST 2V FRONTAL/LATon XR CHEST 2V FRONTAL/LAT * * *Final Report* * * DATE OF EXAM: Jun 17 2024 3:15PM WOX 5291 - XR CHEST 2V FRONTAL/LAT / PROCEDURE REASON: Bronchitis * * * * Physician Interpretation * * * * EXAMINATION: CHEST RADIOGRAPH (2 VIEW FRONTAL and LATERAL) CLINICAL HISTORY: Bronchitis MQ: XC2_6 EXAM DATE/TIME: 06/17/2024 3:15 PM COMPARISON: Chest x-ray on 04/25/2024 RESULT: Lines, tubes, and devices: None. Lungs and pleura: Small hazy opacities overlying the left lower lung. The remaining lungs are clear. No lung mass. No pleural effusion. No pneumothorax. Cardiomediastinal silhouette: Stable cardiomediastinal silhouette. Bones and soft tissues: Unremarkable. IMPRESSION: Small hazy opacities overlying the left lower lung. Consider short-term follow-up. Mobile Pet Groomer: Smart [employer] Backpack Transcribe Date/Time: Jun 17 2024 3:25P Dictated by : LETTY THOMAS MD This examination was interpreted and the report reviewed and electronically signed by: LETTY THOMAS MD on Jun 17 2024 3:29PM EST [id number] Normal [facility] XR Chest PA and Lateralon IMPRESSION: Small hazy opacities overlying the left lower lung. Consider short-term follow-up. Mobile Pet Groomer: Smart GPS Backpack Transcribe Date/Time: Jun 17 2024 3:25P Dictated by : LETTY THOMAS MD This examination was interpreted and the report reviewed and electronically signed by: LETTY THOMAS MD on Jun 17 2024 3:29PM EST DIVISION OF RADIOLOGY * * *Final Report* * * DATE OF EXAM: Jun 17 2024 3:15PM WOX 5291 - XR CHEST 2V FRONTAL/LAT / PROCEDURE REASON: Bronchitis * * * * Physician Interpretation * * * * EXAMINATION: CHEST RADIOGRAPH (2 VIEW FRONTAL & LATERAL) CLINICAL HISTORY: Bronchitis MQ: XC2_6 EXAM DATE/TIME: 06/17/2024 3:15 PM COMPARISON: Chest x-ray on 04/25/2024 RESULT: Lines, tubes, and devices: None. Lungs and pleura: Small hazy opacities overlying the left lower lung. The remaining lungs are clear. No lung mass. No pleural effusion. No pneumothorax. Cardiomediastinal silhouette: Stable cardiomediastinal silhouette. Bones and soft tissues: Unremarkable. DIVISION OF RADIOLOGY Provider, [facility] francis Josefina - 06/17/2024 * * *Final Report* * * DATE OF EXAM: Jun 17 2024 3:15PM WOX 5291 - XR CHEST 2V FRONTAL/LAT / PROCEDURE REASON: Bronchitis * * * * Physician Interpretation * * * * EXAMINATION: CHEST RADIOGRAPH (2 VIEW FRONTAL & LATERAL) CLINICAL HISTORY: Bronchitis MQ: XC2_6 EXAM DATE/TIME: 06/17/2024 3:15 PM COMPARISON: Chest x-ray on 04/25/2024 RESULT: Lines, tubes, and devices: None. Lungs and pleura: Small hazy opacities overlying the left lower lung. The remaining lungs are clear. No lung mass. No pleural effusion. No pneumothorax. Cardiomediastinal silhouette: Stable cardiomediastinal silhouette. Bones and soft tissues: Unremarkable. IMPRESSION IMPRESSION: Small hazy opacities overlying the left lower lung. Consider short-term follow-up. Mobile Pet Groomer: OSMANI Transcribe Date/Time: Jun 17 2024 3:25P Dictated by : LETTY THOMAS MD This examination was interpreted and the report reviewed and electronically signed by: LETTY THOMAS MD on Jun 17 2024 3:29PM EST [facility] Radiology Study observation (narrative) [facility] XR Chest PA and LateralOrder ed By: [facility] Provider on 06-17-2024 [facility] CNOVon 06-13-2024 CNOV Office Visit (UCWSTR ) LAZARO GARZON ([id number]) 1955 M Date Time Provider Department 06/13/24 4:30 PM CAROLANN LUCAS [facility] During your visit today, we recorded the following information about you: Temperature Pulse Respiration Blood pressure 97.7 degrees 90/minute 16/minute 136/74 Weight 153.1 kg Carolann Lucas APRN.EDGE POLISHER 06/13/2024 4:18 PM Signed Subjective The history is provided by the patient. No supervisor modern languages was used. HPI Lazaro Garzon is a 68 year old male who presents today for CC of cough, chest congestion, runny nose for a week. He has used tylenol without relief. BP 136/74 Pulse 90 Temp 36.5 ?C (97.7 ?F) Resp 16 Wt (!) 153.1 kg (337 lb 8.4 oz) SpO2 97% BMI 40.02 kg/m? Social History Tobacco Use Smoking status: Former Current packs/day: 0.00 Average packs/day: 2.0 packs/day for 5.0 years (10.0 ttl pk-yrs) Types: Cigarettes Start date: 02/08/1982 Quit date: 02/08/1987 Years since quittin.3 Smokeless tobacco: Former Types: Chew Quit date: 12/03/2017 Tobacco comments: patient smoked for a few months in 2006 Quit chew June 2022 Vaping Use Vaping status: Never Used Substance Use Topics Alcohol use: Not Currently [...] have confirmed and edited as necessary, the [facility] Review of Systems Constitutional: Negative for chills and fever. HENT: Positive for congestion. Negative for ear pain, sinus pain and sore throat. Rhinorrhea Respiratory: Positive for cough. Negative for sputum production, shortness of breath and wheezing. Cardiovascular: Negative for chest pain. Musculoskeletal: Negative for myalgias. Neurological: Negative for headaches. Objective Physical Exam Vitals and nursing note reviewed. Constitutional: Appearance: He is not toxic-appearing. HENT: Head: Normocephalic and atraumatic. Right Ear: Tympanic membrane, ear canal and external ear normal. Left Ear: Tympanic membrane, ear canal and external ear normal. Nose: Mucosal edema, congestion and rhinorrhea present. Right Sinus: No maxillary sinus tenderness or frontal sinus tenderness. Left Sinus: No maxillary sinus tenderness or frontal sinus tenderness. Mouth/Throat: Pharynx: Uvula midline. Postnasal drip present. No oropharyngeal exudate or posterior oropharyngeal erythema. Tonsils: No tonsillar abscesses. Cardiovascular: Rate and Rhythm: Normal rate and [...] adenopathy. Left cervical: No superficial cervical adenopathy. Neurological: Mental Status: He is alert. ASSESSMENT/PLAN: 1. Rhinosinusitis - ICD9: 473.9, ICD10: J32.9 - Will begin treatment with Doxycycline - Supportive care with plenty of fluids, rest, and analgesia prn. - Follow up in one week if symptoms persist or worsen. Diagnosis and treatment plan were discussed and questions were answered to the patient's satisfaction. Pt acknowledged understanding of concepts and follow up plan. Specific signs and symptoms that would indicate the need for higher level of care were discussed in detail warranting prompt ER evaluation. Carolann Lucas APRN.EDGE POLISHER Allergies As of Date: 06/13/2024 Noted Allergy Reaction SULFA (SULFONAMIDE ANTIBIOTICS) 03/10/2005 2 - Rash Date Reviewed: 06/13/2024 Reviewed by: Freda Carrillo MA - Fully Assessed Reason for Visit: Chest Congestion [236] Cmt: cough, nasal congestion, drainage x 1 week Primary Visit Diagnosis:Rhinosinusitis [J32.9] Order(s):doxycycline (VIBRA-TABS) 100 mg tabletTake 1 tablet by mouth two times a day for 7 days.Disp: 14 tabletRfl: 0 benzonatate (TESSALON PERLE) 100 m (more content not included)... Normal [facility] Testosterone, Serum Totalon 06-06-2024 Testosterone [Mass/Vol] 385.78 ng/dL Normal [facility] Comment on above: Result Comment: CENT RAL 90% REFERENCE RANGES MALE AGE <50 197.44 - 669.58 ng/dL MALE AGE > or = 50 187.72 - 684.19 ng/dL FEMALE AGE <50 8.38 - 35.01 ng/dL FEMALE AGE > or = 50 <7.00 - 35.92 ng/dL Effective as of 01/12/21 Performed By: #### L 501.9910, L509.3000 ####[facility] [id number] [place], [place], [address] PSA,Total - Annual Screenon 06-04-2024 PSA,TOT SCREEN 3.40 ng/mL Normal 0.00-4.00 [facility] Comment on above: Result Comment: This test was performed using the TPSA assay method for the [employer] chemistry system. Values obtained with different assay methods cannot be used interchangably. When changing PSA assays in the course of monitoring a patient, additional sequential testing should be carried out to confirm baseline values. Performed By: #### L 501.9910, L509.3000 ####[facility] [id number] [place], [place], [address] [facility] [place] [facility] LAZAR[facility] GARZON ([id number]) 1955 M Date Time Provider Department 04/26/24 LISA JAVED During your visit today, we recorded the following information about you: Lisa Javed APRN.CNP 04/26/2024 10:22 AM Signed Please see if lab can add on A1c. His blood sugar was elevated- if not he will need to come back in. Lisa Javed, COMFORT.Sincere Car RN 04/26/2024 12:40 PM Signed Spoke with Amanda at [facility] Main lab, who states they will be able to add the hgba1c with the blood collected yesterday. Allergies As of Date: 04/26/2024 Noted Allergy Reaction SULFA (SULFONAMIDE ANTIBIOTICS) 03/10/2005 2 - Rash Date Reviewed: 04/25/2024 Reviewed by: Annel Tomlinson MA - Fully Assessed Reason for Visit: Lab add on [Other] Primary Visit Diagnosis:Elevated blood sugar [R73.9] Order(s):HEMOGLOBIN A1C [YBEJO5C] Order #: [id number] FUTURE Prescriptions as of 04/26/2024 - meclizine (ANTIVERT) 25 mg tab Take 1 tablet by mouth three times a day as needed (dizziness). - aspirin, enteric coated (ASPIRIN, ENTERIC COATED) 81 mg EC tablet Take 1 tablet by mouth once daily. - potassium chloride (K-TAB) 10 mEq tablet Take 2 tablets by mouth once daily. - atomoxetine (STRATTERA) 100 mg capsule Take 1 capsule by mouth once daily. - tamsulosin (FLOMAX) 0.4 mg - esomeprazole (NEXIUM) 40 mg capsule Take 1 capsule by mouth two times a day before meals. - losartan (COZAAR) 50 mg tablet Take 1 tablet by mouth once daily. - albuterol HFA (PROAIR HFA) 90 mcg/actuation inhaler Inhale 2 Puffs as instructed every 4 hours as needed (FOR COUGH OR WHEEZE). - atorvastatin (LIPITOR) 20 mg tablet Take 1 tablet by mouth daily at bedtime. For cholesterol. - amLODIPine (NORVASC) 5 mg tablet Take 1 tablet by mouth once daily. - testosterone (ANDROGEL PUMP) 20.25 mg/1.25 gram (1.62 %) transdermal gel APPLY 4 PUMPS TOPICALLY DAILY. - oxyCODONE-acetaminophen 5-325 mg (PERCOCET) as needed. - CPAP Requires replacement machine at same settings. - Cholecalciferol, Vitamin D3, (VITAMIN D) 1,000 unit cap Take 1 capsule by mouth once daily. - cyanocobalamin (VITAMIN B-12) 1,000 mcg tab Take 1,000 mcg by mouth once daily. - MULTIVITAMIN TAB Take one(1) tablet daily BY MOUTH. Problem List As Of Date 04/26/2024 Noted Resolved Hyperlipidemia [E78.5] 09/30/2005 Palpitations [R00.2] 09/30/2005 07/13/2018 Shortness of breath [R06.02] 02/08/2007 07/13/2018 Diaphragmatic hernia without mention of obstruc*05/24/2011 Esophageal reflux [K21.9] 05/24/2011 Asbestos exposure [Z77.090] 03/20/2012 Essential hypertension, benign [I10] 03/20/2012 07/26/2023 Pulmonary embolism (HCC) [I26.99] 10/11/2013 10/25/2022 Hyperhydrosis disorder [R61] 12/25/2013 Low testosterone [R79.89] 12/25/2013 07/26/2023 CAD (coronary artery disease) s/p PTCA/STENT. *12/25/2013 Sleep apnea [G47.30] 12/25/2013 Peyronie's disease [N48.6] 11/05/2014 Impotence of organic origin [N52.9] 11/05/2014 07/26/2023 Asthma [J45.909] 05/06/2016 03/08/2024 Adrenal nodule (HCC) [E27.9] 05/06/2016 Lung nodule [R91.1] 05/06/2016 Hypokalemia [E87.6] 09/13/2017 Polyarthritis [M13.0] 09/14/2017 Spinal stenosis of lumbar region with neurogeni*06/22/2020 Neural foraminal stenosis of cervical spine [M4*06/22/2020 Atrial flutter (HCC) [I48.92] 09/22/2022 History of pulmonary embolism [Z86.711] 10/25/2022 Gastric intestinal metaplasia [K31.A0] 12/01/2022 History of colonic polyps [Z86.0100] 12/01/2022 Morbid obesity (HCC) [E66.01] 07/05/2023 07/26/2023 Former tobacco use [Z87.891] 07/05/2023 History of TIAs [Z86.73] 07/05/2023 Peripheral neuropathy [G62.9] 07/05/2023 07/26/2023 Obesity, Class III, BMI >= 40 [E66.01] 07/16/2023 07/26/2023 Abnormal cardiovascular stress test [R94.39] 08/21/2012 07/26/2023 Diagnosed: 07/26/2023 Acute prostatitis [N41.0] 07/26/2023 07/26/2023 Diagnosed: 07/26/2023 Chest pain [R07.9] 07/10/2012 07/26/2023 Diagnosed: 07/26/2023 Confusional state [F44.89] 07/26/2023 07/26/2023 Diagnosed: 07/26/2023 Disorder involving thrombocytopenia (HCC) [D69.*07/26/2023 07/26/2023 Diagnosed: 07/26/2023 Encounter for long-term (current) use of insuli*12/17/2012 07/26/2023 Diagnosed: 07/26/2023 Enlarged prostate [N40.0] 07/26/2023 Diagnosed: 07/26/2023 Fatigue [R53.83] 10/30/2013 07/26/2023 Diagnosed: 07/26/2023 Fever [R50.9] 07/26/2023 07/26/2023 Diagnosed: 07/26/2023 First degree atrioventricular block [I44.0] 07/26/2023 Diagnosed: 07/26/2023 Headache, unspecified [R51.9] 07/26/2023 07/26/2023 Diagnosed: 07/26/2023 No response to treatment [NPT7054] 07/26/2023 07/26/2023 Diagnosed: 07/26/2023 Otitis externa [H60.90] 07/26/2023 07/26/2023 Diagnosed: 07/26/2023 Postprocedural state [Z98.890] 07/26/2023 07/26/2023 Diagnosed: 07/26/2023 Presence of stent in coronary artery [Z95.5] 07/26 (more content not included)... Normal [facility] Bacteria Ur Culton Bacteria identified Cx Nom (U) ORGANISM ID: 1 <10,000 CFU/ml Normal urogenital richard Normal [facility] Comment on above: Performed By: #### 6 30-4 ####[facility] [id number] [place] [address] [place] CBC W Auto Differential pane l (Bld)on 04-25-2024 Basophils (Bld) [#/Vol] 0.03 10*3/uL [facility] Basophils/100 WBC (Bld) 0.5 % [facility] Differential cell count method Nom (Bld) Auto [facility] Eosinophils (Bld) [#/Vol] 0.08 10*3/uL [facility] Eosinophils/100 WBC (Bld) 1.3 % [facility] Erythrocyte distribution width (RBC) [Ratio] 13.0 % 11.5 - 15.0 % [facility] Hematocrit (Bld) [Volume fraction] 45.8 % 39.0 - 51.0 % [facility] Hemoglobin (Bld) [Mass/Vol] 15.3 g/dL 13.0 - 17.0 g/dL [facility] Immature granulocytes (Bld) [#/Vol] [facility] Immature granulocytes/100 WBC (Bld) 0.3 % [facility] Interpretation and review of laboratory results Abnormal [facility] Lymphocytes (Bld) [#/Vol] 0.90 10*3/uL Low [facility] Lymphocytes/100 WBC (Bld) 14.8 % [facility] MCH (RBC) [Entitic mass] 29.2 pg 26.0 - 34.0 pg [facility] MCHC (RBC) [Mass/Vol] 33.4 g/dL 30.5 - 36.0 g/dL [facility] MCV (RBC) [Entitic vol] 87.4 fL 80.0 - 100.0 fL [facility] Monocytes (Bld) [#/Vol] 0.53 10*3/uL [facility] Monocytes/100 WBC (Bld) 8.7 % [facility] Neutrophils (Bld) [#/Vol] 4.54 10*3/uL [facility] Neutrophils/100 WBC (Bld) 74.4 % [facility] Nucleated RBC (Bld) [#/Vol] [facility] Nucleated RBC/100 WBC (Bld) [Ratio] 0.0 % /100 WBC [facility] Platelet mean volume (Bld) [Entitic vol] 11.4 fL 9.0 - 12.7 fL [facility] Platelets (Bld) [#/Vol] 169 10*3/uL [facility] RBC (Bld) [#/Vol] 5.24 10*6/uL 4.20 - 6.00 m/uL [facility] WBC (Bld) [#/Vol] 6.10 10*3/uL [facility] Basophils (Bld) [#/Vol] 0.03 10*3/uL Normal <0.11 [facility] Comment on above: Order Comment: Speci men Type: BLOOD SPECIMENOrdering Facility: [facility] Address: [address] [place] [address] Performed By: #### 5 7021-8, 49967-9 ####[facility] [id number] [place] [address] [place] Basophils/100 WBC (Bld) 0.5 % Normal [facility] Comment on above: Order Comment: Speci men Type: BLOOD SPECIMENOrdering Facility: [facility] Address: [address] [place] [address] Performed By: #### 5 7021-8, 71878-1 ####[facility] [id number] [place] [address] [place] Differential cell count method Nom (Bld) Auto Normal [facility] Comment on above: Order Comment: Speci men Type: BLOOD SPECIMENOrdering Facility: [facility] Address: [address] [place] [address] Performed By: #### 5 7021-8, 55295-0 ####[facility] [id number] [place] [address] [place] Eosinophils (Bld) [#/Vol] 0.08 10*3/uL Normal <0.46 [facility] Comment on above: Order Comment: Speci men Type: BLOOD SPECIMENOrdering Facility: [facility] Address: [address] [place] [address] Performed By: #### 5 7021-8, 57371-0 ####[facility] [id number] [place] [address] [place] Eosinophils/100 WBC (Bld) 1.3 % Normal [facility] Comment on above: Order Comment: Speci men Type: BLOOD SPECIMENOrdering Facility: [facility] Address: [address] [place] [address] Performed By: #### 5 7021-8, 67996-0 ####[facility] [id number] [place] [address] [place] Erythrocyte distribution width (RBC) [Ratio] 13.0 % Normal 11.5-15.0 [facility] Comment on above: Order Comment: Speci men Type: BLOOD SPECIMENOrdering Facility: [facility] Address: [address] [place] [address] Performed By: #### 5 7021-8, 66735-3 ####[facility] [id number] [place] [address] [place] Hematocrit (Bld) [Volume fraction] 45.8 % Normal 39.0-51.0 [facility] Comment on above: Order Comment: Speci men Type: BLOOD SPECIMENOrdering Facility: [facility] Address: [address] [place] [address] Performed By: #### 5 7021-8, 40421-4 ####[facility] [id number] [place] [address] [place] Hemoglobin (Bld) [Mass/Vol] 15.3 g/dL Normal 13.0-17.0 [facility] Comment on above: Order Comment: Speci men Type: BLOOD SPECIMENOrdering Facility: [facility] Address: [address] [place] [address] Performed By: #### 5 7021-8, 22490-6 ####[facility] [id number] [facility] [place] [place] [address] [place] Immature granulocytes (Bld) [#/Vol] 10*3/uL Normal <0.10 [facility] Comment on above: Order Comment: Speci men Type: BLOOD SPECIMENOrdering Facility: [facility] Address: [address] [place] [address] Performed By: #### 5 7021-8, 03335-7 ####[facility] [id number] [place] [address] [place] Immature granulocytes/100 WBC (Bld) 0.3 % Normal [facility] Comment on above: Order Comment: Speci men Type: BLOOD SPECIMENOrdering Facility: [facility] Address: [address] [place] [address] Performed By: #### 5 7021-8, 79973-8 ####[facility] [id number] [place] [address] [place] Lymphocytes (Bld) [#/Vol] 0.90 10*3/uL Low 1.00-4.00 [facility] Comment on above: Order Comment: Speci men Type: BLOOD SPECIMENOrdering Facility: [facility] Address: [address] [place] [address] Performed By: #### 5 7021-8, 04204-4 ####[facility] [id number] [place] [address] [place] Lymphocytes/100 WBC (Bld) 14.8 % Normal [facility] Comment on above: Order Comment: Speci men Type: BLOOD SPECIMENOrdering Facility: [facility] Address: [address] [place] [address] Performed By: #### 5 7021-8, 87579-6 ####[facility] [id number] [place] [address] [place] MCH (RBC) [Entitic mass] 29.2 pg Normal 26.0-34.0 [facility] Comment on above: Order Comment: Speci men Type: BLOOD SPECIMENOrdering Facility: [facility] Address: [address] [place] [address] Performed By: #### 5 7021-8, 73162-3 ####[facility] [id number] [place] [address] [place] MCHC (RBC) [Mass/Vol] 33.4 g/dL Normal 30.5-36.0 [facility] Comment on above: Order Comment: Speci men Type: BLOOD SPECIMENOrdering Facility: [facility] Address: [address] [place] [address] Performed By: #### 5 7021-8, 11398-1 ####[facility] [id number] [place] [address] [place] MCV (RBC) [Entitic vol] 87.4 fL Normal 80.0-100.0 [facility] Comment on above: Order Comment: Speci men Type: BLOOD SPECIMENOrdering Facility: [facility] Address: [address] [place] [address] Performed By: #### 5 7021-8, 30854-3 ####[facility] [id number] [place] [address] [place] Monocytes (Bld) [#/Vol] 0.53 10*3/uL Normal <0.87 [facility] Comment on above: Order Comment: Speci men Type: BLOOD SPECIMENOrdering Facility: [facility] Address: [address] [place] [address] Performed By: #### 5 7021-8, 28279-4 ####[facility] [id number] [place] [address] [place] Monocytes/100 WBC (Bld) 8.7 % Normal [facility] Comment on above: Order Comment: Speci men Type: BLOOD SPECIMENOrdering Facility: [facility] Address: [address] [place] [address] Performed By: #### 5 7021-8, 59844-4 ####[facility] [id number] [place] [address] [place] Neutrophils (Bld) [#/Vol] 4.54 10*3/uL Normal 1.45-7.50 [facility] Comment on above: Order Comment: Speci men Type: BLOOD SPECIMENOrdering Facility: [facility] Address: [address] [place] [address] Performed By: #### 5 7021-8, 84076-8 ####[facility] [id number] [place] [address] [place] Neutrophils/100 WBC (Bld) 74.4 % Normal [facility] Comment on above: Order Comment: Speci men Type: BLOOD SPECIMENOrdering Facility: [facility] Address: [address] [place] [address] Performed By: #### 5 7021-8, 03664-7 ####[facility] [id number] [place] [address] [place] Nucleated RBC (Bld) [#/Vol] 10*3/uL Normal <0.01 [facility] Comment on above: Order Comment: Speci men Type: BLOOD SPECIMENOrdering Facility: [facility] Address: [address] [place] [address] Performed By: #### 5 7021-8, 35696-3 ####[facility] [id number] [place] [address] [place] Nucleated RBC/100 WBC (Bld) [Ratio] 0.0 /100 WBC Normal [facility] Comment on above: Order Comment: Speci men Type: BLOOD SPECIMENOrdering Facility: [facility] Address: [address] [place] [address] Performed By: #### 5 7021-8, 73942-0 ####[facility] [id number] [place] [address] [place] Platelet mean volume (Bld) [Entitic vol] 11.4 fL Normal 9.0-12.7 [facility] Comment on above: Order Comment: Speci men Type: BLOOD SPECIMENOrdering Facility: [facility] Address: [address] [place] [address] Performed By: #### 5 7021-8, 67693-9 ####[facility] [id number] [place] [address] [place] Platelets (Bld) [#/Vol] 169 10*3/uL Normal 150-400 [facility] Comment on above: Order Comment: Speci men Type: BLOOD SPECIMENOrdering Facility: [facility] Address: [address] [place] [address] Performed By: #### 5 7021-8, 33866-5 ####[facility] [id number] [place] [address] [place] RBC (Bld) [#/Vol] 5.24 10*6/uL Normal 4.20-6.00 [facility] Comment on above: Order Comment: Speci men Type: BLOOD SPECIMENOrdering Facility: [facility] Address: [address] [place] [address] Performed By: #### 5 7021-8, 89790-5 ####[facility] [id number] [place] [address] [place] WBC (Bld) [#/Vol] 6.10 10*3/uL Normal 3.70-11.00 [facility] Comment on above: Order Comment: Speci men Type: BLOOD SPECIMENOrdering Facility: [facility] Address: [address] [place], [place] [address] [address] Performed By: #### 5 7021-8, 72689-2 ####[facility] [id number] THANIADuncan ABBOTT [id number] [place] CNOVon 04-25-2024 CNOV Office Visit (FAMPWS ) LAZARO GARZON ([id number]) 1955 M Date Time Provider Department 04/25/24 1:20 PM LISA JAVED During your visit today, we recorded the following information about you: Pulse Blood pressure Weight 78/minute 140/78 151 kg Lisa Javed APRN.EDGE POLISHER 04/25/2024 2:07 PM Signed 04/25/2024 Patient presents with: Dizziness: X 1 week SUBJECTIVE: This is a 68 year old that is here today for Above Complaints. For the last week has had dizziness. Described as wearing bifocals and trying to walk down the stairs. Pixley like he was spinning around this morning. Head movement worsens it. Has had vertigo in the past and ENT did maneuver fixed him. Doesn't necessarily feel dizzy now just generally weak. Still trying to get over a cold. Throat is sore. Hurts to take a deep breath at times. SOB at times. Cough is improving. Feels weak and fatigued. Some headaches. Can get hot/cold feelings. Not using OTC medications. Denies fever, chills, muscle aches, worse headache of his life, visual changes, slurred speech, facial drooping, hearing loss, tinnitus, dyspnea, wheezing, chest pain, palpitations, nausea, vomiting, diarrhea, extremity numbness, tingling or weakness PAST MEDICAL HISTORY Diagnosis Date Abdominal pain, [...] treatment per pulm Recurrent pneumonia 14 times ALLERGIES Sulfa (Sulfonamide Antibiotics) MEDICATIONS Current Outpatient Medications Medication Sig aspirin, enteric coated (ASPIRIN, ENTERIC COATED) 81 mg EC tablet Take 1 tablet by mouth once daily. potassium chloride (K-TAB) 10 mEq tablet Take 2 tablets by mouth once daily. atomoxetine (STRATTERA) 100 mg capsule Take 1 capsule by mouth once daily. tamsulosin (FLOMAX) 0.4 mg esomeprazole (NEXIUM) 40 mg capsule Take 1 capsule by mouth two times a day before meals. losartan (COZAAR) 50 mg tablet Take 1 tablet by mouth once daily. albuterol HFA (PROAIR HFA) 90 mcg/actuation inhaler Inhale 2 Puffs as instructed every 4 hours as needed (FOR COUGH OR WHEEZE). atorvastatin (LIPITOR) 20 mg tablet Take 1 tablet by mouth daily at bedtime. For cholesterol. amLODIPine (NORVASC) 5 mg tablet Take 1 tablet by mouth once daily. testosterone (ANDROGEL PUMP) 20.25 mg/1.25 gram (1.62 %) transdermal gel APPLY 4 PUMPS TOPICALLY DAILY. oxyCODONE-acetaminophen 5-325 mg (PERCOCET) as needed. CPAP Requires replacement machine at same settings. Cholecalciferol, Vitamin D3, (VITAMIN D) 1,000 unit cap Take 1 capsule by mouth once daily. cyanocobalamin (VITAMIN B-12) 1,000 mcg tab Take 1,000 mcg by mouth once daily. MULTIVITAMIN TAB Take one(1) tablet daily BY MOUTH. No current facility-administered medications for this visit. Medications and allergies reviewed by this provider. SOCIAL HISTORY Social History Tobacco Use Smoking status: Former Current packs/day: 0.00 Average packs/day: 2.0 packs/day for 5.0 years (10.0 ttl pk-yrs) Types: Cigarettes Start date: 02/08/1982 Quit date: 02/08/1987 Years since quittin.2 Smokeless tobacco: Former Types: Chew Quit date: 12/03/2017 Tobacco comments: patient smoked for a few months in 2006 Quit chew June 2022 Vaping Use Vaping status: Never Used Substance Use Topics Alcohol use: Not Currently Drug use: Not Currently Comment: marijuana in past not since 20 y/o REVIEW OF SYSTEMS All other reviewed and negative other than HPI. OBJECTIVE: BP 140/78 Pulse 78 Wt (!) 151 kg (332 lb 14.3 oz) SpO2 97% BMI 39.48 kg/m? . Vital signs reviewed by this provider. APPEARANCE Well appearing, alert, in no acute distress, well-hydrated, well nourished. EYES PERRLA, conjunctiva and sclera normal. EARS External ears normal, canals clear THROAT normal, no erythema NECK Supple, no adenopathy; thyroid symmetric, normal size, no bruits HEART RRR with normal S1 and S2, no murmurs, no gallops, no JVD appreciated LUNG clear to auscultation. No wheezes, rhonchi or rales EXTREMITIES Extremities normal, No deformities, No skin discoloration, and No edema NEURO Awake, alert and oriented x 3, Cranial nerves II-XII grossly intact, Reflexes symmetrical, Normal gait, No involuntary motions., and negative findings: speech normal (more content not included)... Normal [facility] Comprehensive metabolic 2000 panelon 04-25-2024 Albumin [Mass/Vol] 4.4 g/dL Normal 3.9-4.9 [facility] Comment on above: Order Comment: Speci men Type: BLOOD SPECIMENOrdering Facility: [facility] Address: [address] [place] [address] Performed By: #### 2 4323-8 ####[facility] [id number] [facility] [place] [address] [place] ALP [Catalytic activity/Vol] 72 U/L Normal 38-113 [facility] Comment on above: Order Comment: Speci men Type: BLOOD SPECIMENOrdering Facility: [facility] Address: [address] [place] [address] Performed By: #### 2 4323-8 ####[facility] [id number] [place] [id number] [place] ALT [Catalytic activity/Vol] 39 U/L Normal 10-54 [facility] Comment on above: Order Comment: Speci men Type: BLOOD SPECIMENOrdering Facility: [facility] Address: [address] [place] [address] Performed By: #### 2 4323-8 ####[facility] [id number] [place] [address] [place] Anion gap [Moles/Vol] 11 mmol/L Normal 8-15 [facility] Comment on above: Order Comment: Speci men Type: BLOOD SPECIMENOrdering Facility: [facility] Address: [address] [place] [address] Performed By: #### 2 4323-8 ####[facility] [id number] [place] [address] [place] AST [Catalytic activity/Vol] 24 U/L Normal 14-40 [facility] Comment on above: Order Comment: Speci men Type: BLOOD SPECIMENOrdering Facility: [facility] Address: [address] [place] [address] Performed By: #### 2 4323-8 ####[facility] [id number] [place] [address] [place] Bilirubin [Mass/Vol] 0.7 mg/dL Normal 0.2-1.3 [facility] Comment on above: Order Comment: Speci men Type: BLOOD SPECIMENOrdering Facility: [facility] Address: [address] [place], [place] [address] Performed By: #### 2 4323-8 ####[facility] [id number] [place] [address] [place] Calcium [Mass/Vol] 9.2 mg/dL Normal 8.5-10.2 [facility] Comment on above: Order Comment: Speci men Type: BLOOD SPECIMENOrdering Facility: [facility] Address: [address] [place] [address] Performed By: #### 2 4323-8 ####[facility] [id number] [place] [address] [place] Chloride [Moles/Vol] 101 mmol/L Normal 98-107 [facility] Comment on above: Order Comment: Speci men Type: BLOOD SPECIMENOrdering Facility: [facility] Address: [address] [place] [address] Performed By: #### 2 4323-8 ####[facility] [id number] [place] [address] [place] CO2 [Moles/Vol] 27 mmol/L Normal 22-30 [facility] Comment on above: Order Comment: Speci men Type: BLOOD SPECIMENOrdering Facility: [facility] Address: [address] [place] [address] Performed By: #### 2 4323-8 ####[facility] [id number] [place] [address] [place] Creatinine [Mass/Vol] 0.97 mg/dL Normal 0.73-1.22 [facility] Comment on above: Order Comment: Speci men Type: BLOOD SPECIMENOrdering Facility: [facility] Address: [address] [place] [address] Performed By: #### 2 4323-8 ####[facility] [id number] [place] [address] [place] Creatinine and Glomerular filtration rate.predicted panel (S/P/Bld) 86 mL/min/1.73m??? Normal >=60 [facility] Comment on above: Order Comment: Speci men Type: BLOOD SPECIMENOrdering Facility: [facility] Address: [address] [place] [address] Result Comment: Jayshree mated Glomerular Filtration Rate (eGFR) is calculated using the 2020 CKD-EPI creatinine equation. This equation utilizes serum creatinine, sex, and age as parameters. The creatinine assay has traceable calibration to isotope dilution-mass spectrometry. Refer to KDIGO guidelines for clinical interpretation. In patients with unstable renal function, e.g. those with acute kidney injury, the eGFR may not accurately reflect actual GFR. Performed By: #### 2 4323-8 ####[facility] [id number] [place] [address] [place] Glucose [Mass/Vol] 173 mg/dL High 74-99 [facility] Comment on above: Order Comment: Dunia peters Type: BLOOD SPECIMENOrdering Facility: [facility] Address: [address] [place] [address] Result Comment: The [place] Diabetes Association (ADA) provides guidance for cutoff values for fasting glucose and random glucose. The ADA defines fasting as no caloric intake for at least 8 hours. Fasting plasma glucose results between 100 to 125 [...] Standards of Medical Care in Diabetes 2016, [place] Diabetes Association. Diabetes Care. 2016.39(Suppl 1). Performed By: #### 2 4323-8 ####[facility] [id number] [place] [id number] [place] Potassium [Moles/Vol] 4.1 mmol/L Normal 3.7-5.1 [facility] Comment on above: Order Comment: Dunia peters Type: BLOOD SPECIMENOrdering Facility: [facility] Address: [address] [place] [address] Performed By: #### 2 4323-8 ####[facility] [id number] [address] [address] [place] Protein [Mass/Vol] 7.3 g/dL Normal 6.3-8.0 [facility] Comment on above: Order Comment: Speci men Type: BLOOD SPECIMENOrdering Facility: [facility] Address: [address] [place] [address] Performed By: #### 2 4323-8 ####[facility] [id number] [place] [id number] [place] Sodium [Moles/Vol] 139 mmol/L Normal 136-144 [facility] Comment on above: Order Comment: Speci men Type: BLOOD SPECIMENOrdering Facility: [facility] Address: [address] [place] [address] Performed By: #### 2 4323-8 ####[facility] [id number] [place] [address] [place] Urea nitrogen [Mass/Vol] 15 mg/dL Normal 9-24 [facility] Comment on above: Order Comment: Speci men Type: BLOOD SPECIMENOrdering Facility: [facility] Address: [address] [place] [address] Performed By: #### 2 4323-8 ####[facility] [id number] [place] [address] [place] HbA1c (Bld)on 04-25-2024 Average glucose Estimated from glycated hemoglobin (Bld) [Mass/Vol] 105 mg/dL Normal [facility] Comment on above: Order Comment: Speci men Type: BLOOD SPECIMENOrdering Facility: [facility] Address: [address] [place] [address] Result Comment: eAG: (Estimated average glucose) is a calculated value from HgbA1c and is utility sales representative of the average blood glucose level in the last 2-3 month period. Performed By: #### 5 7021-8, 27997-7 ####[facility] [id number] [place] [address] [place] HbA1c (Bld) [Mass fraction] 5.3 % Normal 4.3-5.6 [facility] Comment on above: Order Comment: Speci men Type: BLOOD SPECIMENOrdering Facility: [facility] Address: [address] [place] [address] Result Comment: [place] Diabetes Association guidelines indicate that patients with HgbA1c in the range 5.7-6.4% are at increased risk for development of diabetes, and intervention by lifestyle modification may be beneficial. HgbA1c greater or equal to 6.5% is considered diagnostic of diabetes. Performed By: #### 5 7021-8, 03998-1 ####[facility] [id number] [place] [address] [place] Urinalysis complete panel (U )on 04-25-2024 Bacteria LM.HPF (Urine sed) [#/Area] Negative Normal Negative [facility] Comment on above: Order Comment: Speci men Type: URINE SPECIMENOrdering Facility: [facility] Address: [address] [place] [address] Performed By: #### 2 4356-8 ####[facility] [id number] [place] [address] [place] Bilirubin Ql (U) Negative Normal Negative [facility] Comment on above: Order Comment: Speci men Type: URINE SPECIMENOrdering Facility: [facility] Address: [address] [place] [address] Performed By: #### 2 4356-8 ####[facility] [id number] [place] [address] [place] Clarity (Unsp spec) Clear Normal Clear [facility] Comment on above: Order Comment: Speci men Type: URINE SPECIMENOrdering Facility: [facility] Address: [address] [place] [address] Performed By: #### 2 4356-8 ####[facility] [id number] [place] [address] [place] Color (U) Yellow Normal Yellow [facility] Comment on above: Order Comment: Speci men Type: URINE SPECIMENOrdering Facility: [facility] Address: [address] [place] [address] Performed By: #### 2 4356-8 ####[facility] [id number] [address] [place] Epithelial cells LM.HPF (Urine sed) [#/Area] None Seen Normal [facility] Comment on above: Order Comment: Speci men Type: URINE SPECIMENOrdering Facility: [facility] Address: [address] [place] [address] Performed By: #### 2 4356-8 ####[facility] [id number] [address] [place] Glucose Test strip (U) [Mass/Vol] Trace Abnormal Negative [facility] Comment on above: Order Comment: Speci men Type: URINE SPECIMENOrdering Facility: [facility] Address: [address] [place] [address] Performed By: #### 2 4356-8 ####[facility] [id number] [place] [address] [place] Hemoglobin Ql (U) Negative Normal Negative [facility] Comment on above: Order Comment: Speci men Type: URINE SPECIMENOrdering Facility: [facility] Address: [address] [place] [address] Performed By: #### 2 4356-8 ####[facility] [id number] [place] [address] [place] Hyaline casts (Urine sed) [#/Area] 0 /[LPF] Normal 0 /LPF [facility] Comment on above: Order Comment: Speci men Type: URINE SPECIMENOrdering Facility: [facility] Address: [address] [place] [address] Performed By: #### 2 4356-8 ####[facility] [id number] [place] [address] [place] Ketones Ql (U) Negative Normal Negative [facility] Comment on above: Order Comment: Speci men Type: URINE SPECIMENOrdering Facility: [facility] Address: [address] [place] [address] Performed By: #### 2 4356-8 ####[facility] [id number] [place] [address] [place] Leukocyte esterase Test strip Ql (U) Negative Normal Negative [facility] Comment on above: Order Comment: Speci men Type: URINE SPECIMENOrdering Facility: [facility] Address: [address] [place] [address] Performed By: #### 2 4356-8 ####[facility] [id number] [place] [address] [place] Nitrite Ql (U) Negative Normal Negative [facility] Comment on above: Order Comment: Speci men Type: URINE SPECIMENOrdering Facility: [facility] Address: [address] [place] [address] Performed By: #### 2 4356-8 ####[facility] [id number] [place] [address] [place] pH (U) 7.5 [pH] Normal <8.5 [facility] Comment on above: Order Comment: Speci men Type: URINE SPECIMENOrdering Facility: [facility] Address: [address] [place] [address] Performed By: #### 2 4356-8 ####[facility] [id number] [place] [address] [place] Protein (U) [Mass/Vol] Negative Normal Negative [facility] Comment on above: Order Comment: Speci men Type: URINE SPECIMENOrdering Facility: [facility] Address: [address] [place] [address] Performed By: #### 2 4356-8 ####[facility] [id number] [place] [address] [place] RBC LM.HPF (Urine sed) [#/Area] 0-2 /HPF Normal 0-2 /HPF [facility] Comment on above: Order Comment: Speci men Type: URINE SPECIMENOrdering Facility: [facility] Address: [address] [place] [address] Performed By: #### 2 4356-8 ####[facility] [id number] [place] [address] [place] Specific gravity (U) [Rel density] 1.021 Normal 1.005-1.03 0 [facility] Comment on above: Order Comment: Speci men Type: URINE SPECIMENOrdering Facility: [facility] Address: [address] [place] [address] Performed By: #### 2 4356-8 ####[facility] [id number] [place] [address] [place] Urobilinogen Ql (U) 0.2 EU/dL Normal 0.2-1.0 EU/dL [facility] Comment on above: Order Comment: Speci men Type: URINE SPECIMENOrdering Facility: [facility] Address: [address] [place] [address] Performed By: #### 2 4356-8 ####[facility] [id number] [place] [address] [place] WBC LM.HPF (Urine sed) [#/Area] 0-5 /HPF Normal 0-5 /HPF [facility] Comment on above: Order Comment: Speci men Type: URINE SPECIMENOrdering Facility: [facility] Address: [address] [place] [address] Performed By: #### 2 4356-8 ####[facility] [id number] [place] [address] [place] XR CHEST 2V FRONTAL/LATon XR CHEST 2V FRONTAL/LAT * * *Final Report* * * DATE OF EXAM: Apr 25 2024 2:17PM WOX [id number] - XR CHEST 2V FRONTAL/LAT / PROCEDURE REASON: multiple diagnoses * * * * Physician Interpretation * * * * EXAMINATION: CHEST RADIOGRAPH (2 VIEW FRONTAL and LATERAL) CLINICAL HISTORY: Acute cough SOB (shortness of breath) MQ: XC2_6 EXAM DATE/TIME: 04/25/2024 2:17 PM COMPARISON: 11/29/2021 RESULT: Lines, tubes, and devices: A neural stimulator is noted with its lead projecting in the mid thoracic spine. Lungs and pleura: No consolidation. No lung mass. No pleural effusion. No pneumothorax. Cardiomediastinal silhouette: Normal cardiomediastinal silhouette. Bones and soft tissues: Degenerative changes are noted in the thoracic spine. IMPRESSION: No acute radiographic abnormality. [employer] Pet G[employer]er: [facility] Transcribe Date/Time: Apr 25 2024 2:18P Dictated by : ASHLEY MONTANO MD This examination was interpreted and the report reviewed and electronically signed by: ASHLEY MONTANO MD on Apr 25 2024 2:19PM EST [id number] Normal [facility] XR Chest PA and Lateralon IMPRESSION: No acute radiographic abnormality. Mobile Pet Groomer: [facility] Transcribe Date/Time: Apr 25 2024 2:18P Dictated by : ASHLEY MONTANO MD This examination was interpreted and the report reviewed and electronically signed by: ASHLEY MONTANO MD on Apr 25 2024 2:19PM [facility] DIVISION OF RADIOLOGY * * *Final Report* * * DATE OF EXAM: Apr 25 2024 2:17PM WOX [id number] - XR CHEST 2V FRONTAL/LAT / PROCEDURE REASON: multiple diagnoses * * * * Physician Interpretation * * * * EXAMINATION: CHEST RADIOGRAPH (2 VIEW FRONTAL & LATERAL) CLINICAL HISTORY: Acute cough SOB (shortness of breath) MQ: XC2_6 EXAM DATE/TIME: 04/25/2024 2:17 PM COMPARISON: 11/29/2021 RESULT: Lines, tubes, and devices: A neural stimulator is noted with its lead projecting in the mid thoracic spine. Lungs and pleura: No consolidation. No lung mass. No pleural effusion. No pneumothorax. Cardiomediastinal silhouette: Normal cardiomediastinal silhouette. Bones and soft tissues: Degenerative changes are noted in the thoracic spine. DIVISION OF RADIOLOGY Provider, Tavo Rocha - 04/25/2024 * * *Final Report* * * DATE OF EXAM: Apr 25 2024 2:17PM WOX [id number] - XR CHEST 2V FRONTAL/LAT / PROCEDURE REASON: multiple diagnoses * * * * Physician Interpretation * * * * EXAMINATION: CHEST RADIOGRAPH (2 VIEW FRONTAL & LATERAL) CLINICAL HISTORY: Acute cough SOB (shortness of breath) MQ: XC2_6 EXAM DATE/TIME: 04/25/2024 2:17 PM COMPARISON: 11/29/2021 RESULT: Lines, tubes, and devices: A neural stimulator is noted with its lead projecting in the mid thoracic spine. Lungs and pleura: No consolidation. No lung mass. No pleural effusion. No pneumothorax. Cardiomediastinal silhouette: Normal cardiomediastinal silhouette. Bones and soft tissues: Degenerative changes are noted in the thoracic spine. IMPRESSION IMPRESSION: No acute radiographic abnormality. Mobile Pet Groomer: [facility] Transcribe Date/Time: Apr 25 2024 2:18P Dictated by : ASHLEY MONTANO MD This examination was interpreted and the report reviewed and electronically signed by: ASHLEY MONTANO MD on Apr 25 2024 2:19PM EST [facility] Radiology Study observation (narrative) [facility] XR Chest PA and LateralOrder ed By: [facility] Provider on 04-25-2024 [facility] CNOVon 04-10-2024 CNOV Office Visit (FAMPWS ) LAZARO GARZON ([id number]) 1955 M Date Time Provider Department 04/10/24 11:40 AM ROJAS DOMINGUEZ FAMPWS During your visit today, we recorded the following information about you: Temperature Pulse Respiration Blood pressure 97.7 degrees 73/minute 18/minute 130/72 Weight 149.1 kg Rojas Dominguez MD 04/10/2024 12:17 PM Signed Chief Complaint Patient presents with: URI: X 1 week HPI Lazaro Garzon is a 68 year old male who presents here today for Above Complaints.. Patient complaining of 1 week history of cough, SOB, wheezing, fatigue, malaise, headache, myalgias, chills, diarrhea (resolved), sore throat, nausea. Symptoms have worsened in the last 2 days with cough becoming occasionally productive with yellow sputum. Treating with nyquil OTC which does help with sleep and albuterol which helps with wheezing. Denies fever, chest pain, sore throat, new loss of taste/smell, vomiting, sinus pain/pressure, ear pain. No recent sick contacts. Patient did a COVID test today which was negative. Feels like symptoms are worsening. Past medical history, appointments, medications, allergies reviewed. Previous Medical History PAST MEDICAL HISTORY Diagnosis Date Abdominal pain, [...] treatment per pulm Recurrent pneumonia 14 times Previous Surgical History PAST SURGICAL HISTORY Procedure Laterality Date ADENOIDECTOMY [...] Right 1988 LAPS SURG CHOLECYSTECTOMY W/CHOLANGIOGRAPHY 2004 [facility] - Dr. 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 EPIGASTRIC HERNIA,REDUC 07/19/2023 umbilical TONSILLECTOMY PRIMARY/SECONDARY Tonsillectomy Family History FAMILY HISTORY Problem Relation Age of Onset Hypertension Mother Heart Mother Stroke Mother Allergies Mother Breast Cancer Mother Heart Father of AL Allergies Father Asthma Daughter Allergies Sister Allergies Brother Allergies Daughter Patient Allergies ALLERGIES Allergen Reactions Sulfa (Sulfonamide * Rash Current Medications Current Outpatient Medications on File Prior to Visit Medication Sig aspirin, enteric coated (ASPIRIN, ENTERIC COATED) 81 mg EC tablet Take 1 tablet by mouth once daily. potassium chloride (K-TAB) 10 mEq tablet Take 2 tablets by mouth once daily. atomoxetine (STRATTERA) 100 mg capsule Take 1 capsule by mouth once daily. tamsulosin (FLOMAX) 0.4 mg esomeprazole (NEXIUM) 40 mg capsule Take 1 capsule by mouth two times a day before meals. losartan (COZAAR) 50 mg tablet Take 1 tablet by mouth once daily. amLODIPine (NORVASC) 5 mg tablet Take 1 tablet by mouth once daily. Cholecalciferol, Vitamin D3, (VITAMIN D) 1,000 unit cap Take 1 capsule by mouth once daily. cyanocobalamin (VITAMIN B-12) 1,000 mcg tab Take 1,000 mcg by mouth once daily. MULTIVITAMIN TAB Take one(1) tablet daily BY MOUTH. albuterol HFA (PROAIR HFA) 90 mcg/actuation inhaler Inhale 2 Puffs as instructed every 4 hours as needed (FOR COUGH OR WHEEZE). atorvastatin (LIPITOR) 20 mg tablet Take 1 tablet by mouth daily at bedtime. For cholesterol. testosterone (ANDROGEL PUMP) 20.25 mg/1.25 gram (1.62 %) transdermal gel APPLY 4 PUMPS TOPICALLY DAILY. oxyCODONE-acetaminophen 5-325 mg (PERCOCET) as needed. CPAP Requires replacement machine at same settings. No current facility-administered medications on file prior to visit. Social History Social History Tobacco Use Smoking status: Former Current packs/day: 0.00 Average packs/day: 2.0 packs/day for 5.0 years (10.0 ttl pk-yrs) Types: Cigarettes Start date: 02/08/1982 Quit date: 02/08/1987 Years since quittin.1 Smokeless tob (more content not included)... Normal [facility] CNOVon 03-13-2024 CNOV Office Visit (FAMPWS ) LAZARO GARZON ([id number]) 1955 M Date Time Provider Department 03/13/24 9:00 AM [facility] your visit today, we recorded the following information about you: Pulse Blood pressure Weight 71/minute 134/72 149.2 kg Jagjit Cheema MD 03/13/2024 9:26 AM Signed Patient presents with: Follow Up HPI: Patient presents today for office visit for follow up. He says he is feeling better. Work up so far was negative. No diarrhea. Overall back to normal. Had some mild cramping but is much better. Bp is better. N chest pain or shortness of breath. Note was copied and pasted, without alteration from previous note: About 1 month trouble with stomach gi issues. Having diarrhea on and off for the last month. Has lower abd discomfort. Getting progressively worse. Has had diverticulitis before and wonders if it is related. No bloody or black stools. No recent travel hx. No recent antibiotic use. No nausea or vomiting. No urinary issues. No fever. Appetite is ok. Discomfort is mild today. Feels like he has pressure in his lower bowel at times Follow up having CT scan. IMPRESSION: No CT evidence of acute abnormalities or signs of acute inflammation the abdomen or pelvis. Moderate degree of sigmoid colon diverticulosis without evidence of diverticulitis. No CT evidence of mechanical bowel obstruction. Penile implant. Moderately enlarged prostate gland Spinal cord stimulator. Previous lower lumbar posterior decompression 1.6 cm right hepatic lobe cyst slightly increased in size from 2019. No new lesions or hepatomegaly Latest Ref Rng 03/08/2024 WBC 3.70 - 11.00 k/uL 4.15 RBC 4.20 - 6.00 m/uL 5.01 Hemoglobin 13.0 - 17.0 g/dL 14.7 Hematocrit 39.0 - 51.0 % 43.8 MCV 80.0 - 100.0 fL 87.4 MCH 26.0 - 34.0 pg 29.3 MCHC 30.5 - 36.0 g/dL 33.6 RDW-CV 11.5 - 15.0 % 13.4 Platelet Count 150 - 400 k/uL 154 MPV 9.0 - 12.7 fL 11.7 Neut% % 70.9 Abs Neut (ANC) 1.45 - 7.50 k/uL 2.94 Lymph% % 19.8 Abs Lymph 1.00 - 4.00 k/uL 0.82 (L) [place]% % 7.5 Abs [place] <0.87 k/uL 0.31 Eosin% % 1.4 Abs Eosin <0.46 k/uL 0.06 Baso% % 0.2 Abs Baso <0.11 k/uL <0.03 Immature Gran % % 0.2 IMMATURE GRANS (ABS) <0.10 k/uL <0.03 NRBC /100 WBC 0.0 Absolute nRBC <0.01 k/uL <0.01 DTYPE Auto Protein, Total 6.3 - 8.0 g/dL 7.3 Albumin 3.9 - 4.9 g/dL 4.4 Calcium 8.5 - 10.2 mg/dL 9.3 Bilirubin, Total 0.2 - 1.3 mg/dL 0.8 Alkaline Phosphatase 38 - 113 U/L 78 AST 14 - 40 U/L 23 ALT 10 - 54 U/L 31 Glucose 74 - 99 mg/dL 201 (H) BUN 9 - 24 mg/dL 14 Creatinine 0.73 - 1.22 mg/dL 0.97 Sodium 136 - 144 mmol/L 140 Potassium 3.7 - 5.1 mmol/L 3.5 (L) Chloride 98 - 107 mmol/L 105 CO2 22 - 30 mmol/L 26 Anion Gap 8 - 15 mmol/L 9 eGFR >=60 mL/min/1.73m? 86 Legend: (L) Low (H) High MEDICATIONS: Current Outpatient Medications Medication Sig aspirin, enteric coated (ASPIRIN, ENTERIC COATED) 81 mg EC tablet Take 1 tablet by mouth once daily. potassium chloride (K-TAB) 10 mEq tablet Take 2 tablets by mouth once daily. atomoxetine (STRATTERA) 100 mg capsule Take 1 capsule by mouth once daily. tamsulosin (FLOMAX) 0.4 mg esomeprazole (NEXIUM) 40 mg capsule Take 1 capsule by mouth two times a day before meals. losartan (COZAAR) 50 mg tablet Take 1 tablet by mouth once daily. albuterol HFA (PROAIR HFA) 90 mcg/actuation inhaler Inhale 2 Puffs as instructed every 4 hours as needed (FOR COUGH OR WHEEZE). atorvastatin (LIPITOR) 20 mg tablet Take 1 tablet by mouth daily at bedtime. For cholesterol. amLODIPine (NORVASC) 5 mg tablet Take 1 tablet by mouth once daily. testosterone (ANDROGEL PUMP) 20.25 mg/1.25 gram (1.62 %) transdermal gel APPLY 4 PUMPS TOPICALLY DAILY. oxyCODONE-acetaminophen 5-325 mg (PERCOCET) as needed. CPAP Requires replacement machine at same settings. [...] in 01/02 Palpitations Personal history of colonic polyp (more content not included)... Normal [facility] CBC W Auto Differential pane l (Bld)on 03-08-2024 Basophils (Bld) [#/Vol] [facility] Basophils/100 WBC (Bld) 0.2 % [facility] Differential cell count method Nom (Bld) Auto [facility] Eosinophils (Bld) [#/Vol] 0.06 10*3/uL NINF [facility] Eosinophils/100 WBC (Bld) 1.4 % [facility] Erythrocyte distribution width (RBC) [Ratio] 13.4 % 11.5 - 15.0 % [facility] Hematocrit (Bld) [Volume fraction] 43.8 % 39.0 - 51.0 % [facility] Hemoglobin (Bld) [Mass/Vol] 14.7 g/dL 13.0 - 17.0 g/dL [facility] Immature granulocytes (Bld) [#/Vol] NINF [facility] Immature granulocytes/100 WBC (Bld) 0.2 % [facility] Interpretation and review of laboratory results Abnormal [facility] Lymphocytes (Bld) [#/Vol] 0.82 10*3/uL Low [facility] Lymphocytes/100 WBC (Bld) 19.8 % [facility] MCH (RBC) [Entitic mass] 29.3 pg 26.0 - 34.0 pg [facility] MCHC (RBC) [Mass/Vol] 33.6 g/dL 30.5 - 36.0 g/dL [facility] MCV (RBC) [Entitic vol] 87.4 fL 80.0 - 100.0 fL [facility] Monocytes (Bld) [#/Vol] 0.31 10*3/uL [facility] Monocytes/100 WBC (Bld) 7.5 % [facility] Neutrophils (Bld) [#/Vol] 2.94 10*3/uL [facility] Neutrophils/100 WBC (Bld) 70.9 % [facility] Nucleated RBC (Bld) [#/Vol] NINF [facility] Nucleated RBC/100 WBC (Bld) [Ratio] 0.0 % /100 WBC [facility] Platelet mean volume (Bld) [Entitic vol] 11.7 fL 9.0 - 12.7 fL [facility] Platelets (Bld) [#/Vol] 154 10*3/uL [facility] RBC (Bld) [#/Vol] 5.01 10*6/uL 4.20 - 6.00 m/uL [facility] WBC (Bld) [#/Vol] 4.15 10*3/uL [facility] Basophils (Bld) [#/Vol] 10*3/uL Normal <0.11 [facility] Comment on above: Order Comment: Speci men Type: BLOOD SPECIMENOrdering Facility: [facility] Address: [address] [place] [address] Performed By: #### 5 7021-8 ####[facility] [id number] [place] [address] [place] Basophils/100 WBC (Bld) 0.2 % Normal [facility] Comment on above: Order Comment: Speci men Type: BLOOD SPECIMENOrdering Facility: [facility] Address: [address] [place] [address] Performed By: #### 5 7021-8 ####[facility] [id number] [place] [address] [place] Differential cell count method Nom (Bld) Auto Normal [facility] Comment on above: Order Comment: Speci men Type: BLOOD SPECIMENOrdering Facility: [facility] Address: [address] [place] [address] Performed By: #### 5 7021-8 ####[facility] [id number] [place] [address] [place] Eosinophils (Bld) [#/Vol] 0.06 10*3/uL Normal <0.46 [facility] Comment on above: Order Comment: Speci men Type: BLOOD SPECIMENOrdering Facility: [facility] Address: [address] [place] [address] Performed By: #### 5 7021-8 ####[facility] [id number] [place] [address] [place] Eosinophils/100 WBC (Bld) 1.4 % Normal [facility] Comment on above: Order Comment: Speci men Type: BLOOD SPECIMENOrdering Facility: [facility] Address: [address] [place] [address] Performed By: #### 5 7021-8 ####[facility] [id number] [place] [address] [place] Erythrocyte distribution width (RBC) [Ratio] 13.4 % Normal 11.5-15.0 [facility] Comment on above: Order Comment: Speci men Type: BLOOD SPECIMENOrdering Facility: [facility] Address: [address] [place] [address] Performed By: #### 5 7021-8 ####[facility] [id number] [place] [address] [place] Hematocrit (Bld) [Volume fraction] 43.8 % Normal 39.0-51.0 [facility] Comment on above: Order Comment: Speci men Type: BLOOD SPECIMENOrdering Facility: [facility] Address: [address] [place] [address] Performed By: #### 5 7021-8 ####[facility] [id number] [place] [address] [place] Hemoglobin (Bld) [Mass/Vol] 14.7 g/dL Normal 13.0-17.0 [facility] Comment on above: Order Comment: Speci men Type: BLOOD SPECIMENOrdering Facility: [facility] Address: [address] [place] [address] Performed By: #### 5 7021-8 ####[facility] [id number] [place] [address] [place] Immature granulocytes (Bld) [#/Vol] 10*3/uL Normal <0.10 [facility] Comment on above: Order Comment: Speci men Type: BLOOD SPECIMENOrdering Facility: [facility] Address: [address] [place] [address] Performed By: #### 5 7021-8 ####[facility] [id number] [place] [address] [place] Immature granulocytes/100 WBC (Bld) 0.2 % Normal [facility] Comment on above: Order Comment: Speci men Type: BLOOD SPECIMENOrdering Facility: [facility] Address: [address] [place] [address] Performed By: #### 5 7021-8 ####[facility] [id number] [place] [address] [place] Lymphocytes (Bld) [#/Vol] 0.82 10*3/uL Low 1.00-4.00 [facility] Comment on above: Order Comment: Speci men Type: BLOOD SPECIMENOrdering Facility: [facility] Address: [address] [place] [address] Performed By: #### 5 7021-8 ####[facility] [id number] [place] [address] [place] Lymphocytes/100 WBC (Bld) 19.8 % Normal [facility] Comment on above: Order Comment: Speci men Type: BLOOD SPECIMENOrdering Facility: [facility] Address: [address] [place] [address] Performed By: #### 5 7021-8 ####[facility] [id number] [place] [address] [place] MCH (RBC) [Entitic mass] 29.3 pg Normal 26.0-34.0 [facility] Comment on above: Order Comment: Speci men Type: BLOOD SPECIMENOrdering Facility: [facility] Address: [address] [place] [address] Performed By: #### 5 7021-8 ####[facility] [id number] [place] [address] [place] MCHC (RBC) [Mass/Vol] 33.6 g/dL Normal 30.5-36.0 [facility] Comment on above: Order Comment: Speci men Type: BLOOD SPECIMENOrdering Facility: [facility] Address: [address] [place] [address] Performed By: #### 5 7021-8 ####[facility] [id number] [place] [address] [place] MCV (RBC) [Entitic vol] 87.4 fL Normal 80.0-100.0 [facility] Comment on above: Order Comment: Speci men Type: BLOOD SPECIMENOrdering Facility: [facility] Address: [address] [place] [address] Performed By: #### 5 7021-8 ####[facility] [id number] [place] [address] [place] Monocytes (Bld) [#/Vol] 0.31 10*3/uL Normal <0.87 [facility] Comment on above: Order Comment: Speci men Type: BLOOD SPECIMENOrdering Facility: [facility] Address: [address] [place] [address] Performed By: #### 5 7021-8 ####[facility] [id number] [place] [address] [place] Monocytes/100 WBC (Bld) 7.5 % Normal [facility] Comment on above: Order Comment: Speci men Type: BLOOD SPECIMENOrdering Facility: [facility] Address: [address] [place] [address] Performed By: #### 5 7021-8 ####[facility] [id number] [place] [address] [place] Neutrophils (Bld) [#/Vol] 2.94 10*3/uL Normal 1.45-7.50 [facility] Comment on above: Order Comment: Speci men Type: BLOOD SPECIMENOrdering Facility: [facility] Address: [address] [place] [address] Performed By: #### 5 7021-8 ####[facility] [id number] [place] [address] [place] Neutrophils/100 WBC (Bld) 70.9 % Normal [facility] Comment on above: Order Comment: Speci men Type: BLOOD SPECIMENOrdering Facility: [facility] Address: [address] [place] [address] Performed By: #### 5 7021-8 ####[facility] [id number] [place] [address] [place] Nucleated RBC (Bld) [#/Vol] 10*3/uL Normal <0.01 [facility] Comment on above: Order Comment: Speci men Type: BLOOD SPECIMENOrdering Facility: [facility] Address: [address] [place] [address] Performed By: #### 5 7021-8 ####[facility] [id number] [place] [address] [place] Nucleated RBC/100 WBC (Bld) [Ratio] 0.0 /100 WBC Normal [facility] Comment on above: Order Comment: Speci men Type: BLOOD SPECIMENOrdering Facility: [facility] Address: [address] [place] [address] Performed By: #### 5 7021-8 ####[facility] [id number] [place] [address] [place] Platelet mean volume (Bld) [Entitic vol] 11.7 fL Normal 9.0-12.7 [facility] Comment on above: Order Comment: Speci men Type: BLOOD SPECIMENOrdering Facility: [facility] Address: [address] [place] [address] Performed By: #### 5 7021-8 ####[facility] [id number] [place] [address] [place] Platelets (Bld) [#/Vol] 154 10*3/uL Normal 150-400 [facility] Comment on above: Order Comment: Speci men Type: BLOOD SPECIMENOrdering Facility: [facility] Address: [address] [place] [address] Performed By: #### 5 7021-8 ####[facility] [id number] [place] [id number] [place] RBC (Bld) [#/Vol] 5.01 10*6/uL Normal 4.20-6.00 [facility] Comment on above: Order Comment: Speci men Type: BLOOD SPECIMENOrdering Facility: [facility] Address: [address] [place] [address] Performed By: #### 5 7021-8 ####[facility] [id number] [place] [address] [place] WBC (Bld) [#/Vol] 4.15 10*3/uL Normal 3.70-11.00 [facility] Comment on above: Order Comment: Speci men Type: BLOOD SPECIMENOrdering Facility: [facility] Address: [address] [place] [address] Performed By: #### 5 7021-8 ####[facility] [id number] [address] [place] CNOVon 03-08-2024 CNOV Office Visit (FAMPWS ) LAZARO GARZON ([id number]) 1955 M Date Time Provider Department 03/08/24 9:40 AM JAGJIT CHEEMA FAMPWS During your visit today, we recorded the following information about you: Temperature Pulse Blood pressure Weight 99.1 degrees 77/minute 148/82 148 kg Jagjit Cheema MD 03/08/2024 10:13 AM Signed Patient presents with: 6 Month Exam HPI: Patient presents today for office visit for follow up. HTN: Patient is compliant with meds Yes Monitors bp at home: Yes. Denies side effects: Yes. Chest pain: No. Dyspnea: No. Edema: No. Palpitations: No. Syncope: No. Headache: No. Dizziness: No. HYPERLIPIDEMIA: Patient is taking medications: Yes. Patient is watching diet: Yes. Patient denies myalgias: Yes. Patient denies gi upset: No GERD: Patient takes: nexium Heartburn is controlled: Yes. Bloody or black stools: No. Bowel changes: Yes. DEENA:still using cpap. Benefiting from its use. About 1 month trouble with stomach gi issues. Having diarrhea on and off for the last month. Has lower abd discomfort. Getting progressively worse. Has had diverticulitis before and wonders if it is related. No bloody or black stools. No recent travel hx. No recent antibiotic use. No nausea or vomiting. No urinary issues. No fever. Appetite is ok. Discomfort is mild today. Feels like he has pressure in his lower bowel at times. [place]: Thinks hussain is helping his focus and finish sentences Still seeing [facility]. Still on adrogen therapy per urology. MEDICATIONS: Current Outpatient Medications Medication Sig potassium chloride (K-TAB) 10 mEq tablet Take 2 tablets by mouth once daily. atomoxetine (STRATTERA) 100 mg capsule Take 1 capsule by mouth once daily. tamsulosin (FLOMAX) 0.4 mg esomeprazole (NEXIUM) 40 mg capsule Take 1 capsule by mouth two times a day before meals. losartan (COZAAR) 50 mg tablet Take 1 tablet by mouth once daily. atorvastatin (LIPITOR) 20 mg tablet Take 1 tablet by mouth daily at bedtime. For cholesterol. amLODIPine (NORVASC) 5 mg tablet Take 1 tablet by mouth once daily. testosterone (ANDROGEL PUMP) 20.25 mg/1.25 gram (1.62 %) transdermal gel APPLY 4 PUMPS TOPICALLY DAILY. cyanocobalamin (VITAMIN B-12) 1,000 mcg tab Take 1,000 mcg by mouth once daily. aspirin, enteric coated (ASPIRIN, ENTERIC COATED) 81 mg EC tablet Take 1 tablet by mouth once daily. albuterol HFA (PROAIR HFA) 90 mcg/actuation inhaler Inhale 2 Puffs as instructed every 4 hours as needed (FOR COUGH OR WHEEZE). oxyCODONE-acetaminophen 5-325 mg (PERCOCET) as needed. CPAP Requires replacement machine at same settings. Cholecalciferol, Vitamin D3, (VITAMIN D) 1,000 unit cap Take 1 capsule by mouth once daily. MULTIVITAMIN TAB Take [...] Right 1988 LAPS SURG CHOLECYSTECTOMY W/CHOLANGIOGRAPHY 2004 [facility] - Dr. 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 EPIGASTRIC HERNIA,REDUC 07/19/2023 umbilical TONSILLECTOMY PRIMARY/SECONDARY Tonsillectomy FAMILY HISTORY Problem Relation Age of Onset Hypertension Mother Heart Mother Stroke Mother Allergies Mother Breast Cancer Mother Heart Father of [place] Allergies Father Asthma Daughter Allergies Sister Allergies Brother Allergies Daughter Social History Tobacco Us (more content not included)... Normal [facility] Wade 03-08-2024 ROSITAN Telephone (FAMPWS) DURANLAZARO MCFARLANE ([id number]) 1955 M Date Time Provider Department 03/08/24 JAGJIT CHEEMA During your visit today, we recorded the following information about you: Jagjit Cheema MD 03/08/2024 4:[address] was ok. Potassium was slightly low. I have him taking potassium. Can take an extra dose today, keep follow up next week. No signs of diverticulitis. Asuncion Robertson LPN 03/08/2024 4:43 PM Signed Phoned patient and went over results, notes from Dr Cheema with understanding. Patient will take 2 tablets of potassium with supper tonight and keep his appt on Monday. Allergies As of Date: 03/08/2024 Noted Allergy Reaction SULFA (SULFONAMIDE ANTIBIOTICS) 03/10/2005 2 - Rash Date Reviewed: 03/08/2024 Reviewed by: Brandie Lange LPN - Fully Assessed Reason for Visit: Results [95] Prescriptions as of 03/08/2024 - iv contrast (will be provided with radiology test) CT ABD/PEL -Inject, intravenously, once for 1 dose.No IV access, insert saline lock prior to the beginning of sedation, infusion, injection of imaging exam. Discontinue saline lock post exam. If Pt. has a central line or IVAD, may access for administration according to line specific nursing protocol. Once exam is complete flush line and de-access according to line specific nursing protocol in the CT contrast administration guidelines link. - enteric contrast (will be provided with radiology test) For CT ABD/PEL W IVCON Routine order Administer, As Directed One Time Only, via Oral, Rectal, both Oral and Rectal, Enteric Tube, Stoma or Indwelling Catheter, Enteric Contrast as designated per enteric contrast guidelines - aspirin, enteric coated (ASPIRIN, ENTERIC COATED) 81 mg EC tablet Take 1 tablet by mouth once daily. - potassium chloride (K-TAB) 10 mEq tablet Take 2 tablets by mouth once daily. - atomoxetine (STRATTERA) 100 mg capsule Take 1 capsule by mouth once daily. - tamsulosin (FLOMAX) 0.4 mg - esomeprazole (NEXIUM) 40 mg capsule Take 1 capsule by mouth two times a day before meals. - losartan (COZAAR) 50 mg tablet Take 1 tablet by mouth once daily. - albuterol HFA (PROAIR HFA) 90 mcg/actuation inhaler Inhale 2 Puffs as instructed every 4 hours as needed (FOR COUGH OR WHEEZE). - atorvastatin (LIPITOR) 20 mg tablet Take 1 tablet by mouth daily at bedtime. For cholesterol. - amLODIPine (NORVASC) 5 mg tablet Take 1 tablet by mouth once daily. - testosterone (ANDROGEL PUMP) 20.25 mg/1.25 gram (1.62 %) transdermal gel APPLY 4 PUMPS TOPICALLY DAILY. - oxyCODONE-acetaminophen 5-325 mg (PERCOCET) as needed. - CPAP Requires replacement machine at same settings. - Cholecalciferol, Vitamin D3, (VITAMIN D) 1,000 unit cap Take 1 capsule by mouth once daily. - cyanocobalamin (VITAMIN B-12) 1,000 mcg tab Take 1,000 mcg by mouth once daily. - MULTIVITAMIN TAB Take one(1) tablet daily BY MOUTH. Problem List As Of Date 03/08/2024 Noted Resolved Hyperlipidemia [E78.5] 09/30/2005 Palpitations [R00.2] 09/30/2005 07/13/2018 Shortness of breath [R06.02] 02/08/2007 07/13/2018 Diaphragmatic hernia without mention of obstruc*05/24/2011 Esophageal reflux [K21.9] 05/24/2011 Asbestos exposure [Z77.090] 03/20/2012 Essential hypertension, benign [I10] 03/20/2012 07/26/2023 Pulmonary embolism (HCC) [I26.99] 10/11/2013 10/25/2022 Hyperhydrosis disorder [R61] 12/25/2013 Low testosterone [R79.89] 12/25/2013 07/26/2023 CAD (coronary artery disease) s/p PTCA/STENT. *12/25/2013 Sleep apnea [G47.30] 12/25/2013 Peyronie's disease [N48.6] 11/05/2014 Impotence of organic origin [N52.9] 11/05/2014 07/26/2023 Asthma [J45.909] 05/06/2016 03/08/2024 Adrenal nodule (HCC) [E27.9] 05/06/2016 Lung nodule [R91.1] 05/06/2016 Hypokalemia [E87.6] 09/13/2017 Polyarthritis [M13.0] 09/14/2017 Spinal stenosis of lumbar region with neurogeni*06/22/2020 Neural foraminal stenosis of cervical spine [M4*06/22/2020 Atrial flutter (HCC) [I48.92] 09/22/2022 History of pulmonary embolism [Z86.711] 10/25/2022 Gastric intestinal metaplasia [K31.A0] 12/01/2022 History of colonic polyps [Z86.010] 12/01/2022 Morbid obesity (HCC) [E66.01] 07/05/2023 07/26/2023 Former tobacco use [Z87.891] 07/05/2023 History of TIAs [Z86.73] 07/05/2023 Peripheral neuropathy [G62.9] 07/05/2023 07/26/2023 Obesity, Class III, BMI >= 40 [E66.01] 07/16/2023 07/26/2023 Abnormal cardiovascular stress test [R94.39] 08/21/2012 07/26/2023 Diagnosed: 07/26/2023 Acute prostatitis [N41.0] 07/26/2023 07/26/2023 Diagnosed: 07/26/2023 Chest pain [R07.9] 07/10/2012 07/26/2023 Diagnosed: 07/26/2023 Confusional state [F44.89] 07/26/2023 07/26/2023 Diagnosed: 07/26/2023 Disorder involving thrombocytopenia (HCC) [D69.*07/26/2023 07/26/2023 Diagnosed: 07/26/2023 Encounter for long-term (current) use of insuli*12/17/2012 07/26/2023 Diagnosed: 02 (more content not included)... Normal [facility] CT ABD/PEL W IVCONon 024 CT ABD/PEL W IVCON * * *Final Report* * * DATE OF EXAM: Mar 08 2024 4:00PM [facility] 0530 - CT ABD/PEL W IVCON / PROCEDURE REASON: Left lower quadrant abdominal pain * * * * Physician Interpretation * * * * EXAMINATION: CT ABDOMEN AND PELVIS WITH IV CONTRAST CLINICAL HISTORY: Left lower quadrant pain TECHNIQUE: CT of the abdomen and pelvis was performed using standard technique, scanning from just above the dome of the diaphragm to the symphysis pubis. MQ: CTAP_3 Contrast: IV: 100 ml of Omnipaque 350 Oral: 25 ml of Omni 240 10-25ml diluted with water CT Radiation dose: Integrated Dose-length product (DLP) for this visit = 1209.59 mGy*cm. CT Dose Reduction Employed: Automated exposure control(AEC) and iterative recon COMPARISON: 01/31/2019 CT RESULT: Liver: 1.6 cm right hepatic lobe cyst slightly increased in size from 2019. No new lesions or hepatomegaly Biliary: No bile duct dilation. Cholecystectomy Spleen: No mass. No splenomegaly. Pancreas: No mass or duct dilation. Adrenals: No mass. Kidneys: No hydronephrosis or collecting system calculi. 5.7 cm simple right renal cortical cyst. GI tract: Moderate degree of sigmoid colon diverticulosis without evidence of diverticulitis. No CT evidence of mechanical bowel obstruction. Lymph nodes: No abdominal or pelvic lymphadenopathy. Mesentery/Peritoneum: No ascites or mass. Retroperitoneum: No mass. Vasculature: No aneurysm or proximal large vessel thrombosis Pelvis: No mass, ascites or fluid collection. Penile implant Bones/Soft Tissues: No acute osseous abnormality. Spinal cord stimulator. Previous lower lumbar posterior decompression Lower thorax: Clear IMPRESSION: No CT evidence of acute abnormalities or signs of acute inflammation the abdomen or pelvis. Moderate degree of sigmoid colon diverticulosis without evidence of diverticulitis. No CT evidence of mechanical bowel obstruction. Penile implant. Moderately enlarged prostate gland Spinal cord stimulator. Previous lower lumbar posterior decompression 1.6 cm right hepatic lobe cyst slightly increased in size from 2019. No new lesions or hepatomegaly Mobile Pet Groomer: PSCB Transcribe Date/Time: Mar 08 2024 4:06P Dictated by : KHANH GERARD MD This examination was interpreted and the report reviewed and electronically signed by: KHANH GERARD MD on Mar 08 2024 4:12PM EST [id number] Normal [facility] CT Abdomen and Pelvis W cont rast Tanna 03-08-2024 IMPRESSION: No CT evidence of acute abnormalities or signs of acute inflammation the abdomen or pelvis. Moderate degree of sigmoid colon diverticulosis without evidence of diverticulitis. No CT evidence of mechanical bowel obstruction. Penile implant. Moderately enlarged prostate gland Spinal cord stimulator. Previous lower lumbar posterior decompression 1.6 cm right hepatic lobe cyst slightly increased in size from 2019. No new lesions or hepatomegaly Mobile Pet Groomer: OSMANI Transcribe Date/Time: Mar 08 2024 4:06P Dictated by : KHANH GERARD MD This examination was interpreted and the report reviewed and electronically signed by: KHANH GERARD MD on Mar 08 2024 4:12PM EST [employer] * * *Final Report* * * DATE OF EXAM: Mar 08 2024 4:00PM [facility] 0530 - CT ABD/PEL W IVCON / PROCEDURE REASON: Left lower quadrant abdominal pain * * * * Physician Interpretation * * * * EXAMINATION: CT ABDOMEN AND PELVIS WITH IV CONTRAST CLINICAL HISTORY: Left lower quadrant pain TECHNIQUE: CT of the abdomen and pelvis was performed using standard technique, scanning from just above the dome of the diaphragm to the symphysis pubis. MQ: CTAP_3 Contrast: IV: 100 ml of Omnipaque 350 Oral: 25 ml of Omni 240 10-25ml diluted with water CT Radiation dose: Integrated Dose-length product (DLP) for this visit = 1209.59 mGy*cm. CT Dose Reduction Employed: Automated exposure control(AEC) and iterative recon COMPARISON: 01/31/2019 CT RESULT: Liver: 1.6 cm right hepatic lobe cyst slightly increased in size from 2019. No new lesions or hepatomegaly Biliary: No bile duct dilation. Cholecystectomy Spleen: No mass. No splenomegaly. Pancreas: No mass or duct dilation. Adrenals: No mass. Kidneys: No hydronephrosis or collecting system calculi. 5.7 cm simple right renal cortical cyst. GI tract: Moderate degree of sigmoid colon diverticulosis without evidence of diverticulitis. No CT evidence of mechanical bowel obstruction. Lymph nodes: No abdominal or pelvic lymphadenopathy. Mesentery/Peritoneum: No ascites or mass. Retroperitoneum: No mass. Vasculature: No aneurysm or proximal large vessel thrombosis Pelvis: No mass, ascites or fluid collection. Penile implant Bones/Soft Tissues: No acute osseous abnormality. Spinal cord stimulator. Previous lower lumbar posterior decompression Lower thorax: Clear [employer] [facility] [facility] Provider, [facility] [place] - 03/08/2024 * * *Final Report* * * DATE OF EXAM: Mar 08 2024 4:00PM [facility] 0530 - CT ABD/PEL W IVCON / PROCEDURE REASON: Left lower quadrant abdominal pain * * * * Physician Interpretation * * * * EXAMINATION: CT ABDOMEN AND PELVIS WITH IV CONTRAST CLINICAL HISTORY: Left lower quadrant pain TECHNIQUE: CT of the abdomen and pelvis was performed using standard technique, scanning from just above the dome of the diaphragm to the symphysis pubis. MQ: CTAP_3 Contrast: IV: 100 ml of Omnipaque 350 Oral: 25 ml of Omni 240 10-25ml diluted with water CT Radiation dose: Integrated Dose-length product (DLP) for this visit = 1209.59 mGy*cm. CT Dose Reduction Employed: Automated exposure control(AEC) and iterative recon COMPARISON: 01/31/2019 CT RESULT: Liver: 1.6 cm right hepatic lobe cyst slightly increased in size from 2019. No new lesions or hepatomegaly Biliary: No bile duct dilation. Cholecystectomy Spleen: No mass. No splenomegaly. Pancreas: No mass or duct dilation. Adrenals: No mass. Kidneys: No hydronephrosis or collecting system calculi. 5.7 cm simple right renal cortical cyst. GI tract: Moderate degree of sigmoid colon diverticulosis without evidence of diverticulitis. No CT evidence of mechanical bowel obstruction. Lymph nodes: No abdominal or pelvic lymphadenopathy. Mesentery/Peritoneum: No ascites or mass. Retroperitoneum: No mass. Vasculature: No aneurysm or proximal large vessel thrombosis Pelvis: No mass, ascites or fluid collection. Penile implant Bones/Soft Tissues: No acute osseous abnormality. Spinal cord stimulator. Previous lower lumbar posterior decompression Lower thorax: Clear IMPRESSION IMPRESSION: No CT evidence of acute abnormalities or signs of acute inflammation the abdomen or pelvis. Moderate degree of sigmoid colon diverticulosis without evidence of diverticulitis. No CT evidence of mechanical bowel obstruction. Penile implant. Moderately enlarged prostate gland Spinal cord stimulator. Previous lower lumbar posterior decompression 1.6 cm right hepatic lobe cyst slightly increased in size from 2019. No new lesions or hepatomegaly [employer]er: OSMANI Transcribe Date/Time: Mar 08 2024 4:06P Dictated by : KHANH GERARD MD This examination was interpreted and the report reviewed and electronically signed by: KHANH GERARD MD on Mar 08 2024 4:12PM EST [facility] Radiology Study observation (narrative) [facility] CT Abdomen and Pelvis W cont rast IVOrdered By: [facility] Provider on 03-08-2024 [facility] Comprehensive metabolic 2000 panelon 03-08-2024 Albumin [Mass/Vol] 4.4 g/dL Normal 3.9-4.9 [facility] Comment on above: Order Comment: Speci men Type: BLOOD SPECIMENOrdering Facility: [facility] Address: [address] [place] [address] Performed By: #### 2 4323-8 ####[facility] [id number] [place] [address] [place] ALP [Catalytic activity/Vol] 78 U/L Normal 38-113 [facility] Comment on above: Order Comment: Speci men Type: BLOOD SPECIMENOrdering Facility: [facility] Address: [address] [place] [address] Performed By: #### 2 4323-8 ####[facility] [id number] [place] [address] [place] ALT [Catalytic activity/Vol] 31 U/L Normal 10-54 [facility] Comment on above: Order Comment: Speci men Type: BLOOD SPECIMENOrdering Facility: [facility] Address: [address] [place] [address] Performed By: #### 2 4323-8 ####[facility] [id number] [place] [address] [place] Anion gap [Moles/Vol] 9 mmol/L Normal 8-15 [facility] Comment on above: Order Comment: Speci men Type: BLOOD SPECIMENOrdering Facility: [facility] Address: [address] [place] [address] Performed By: #### 2 4323-8 ####[facility] [id number] [place] [address] [place] AST [Catalytic activity/Vol] 23 U/L Normal 14-40 [facility] Comment on above: Order Comment: Speci men Type: BLOOD SPECIMENOrdering Facility: [facility] Address: [address] [place] [address] Performed By: #### 2 4323-8 ####[facility] [id number] [place] [address] [place] Bilirubin [Mass/Vol] 0.8 mg/dL Normal 0.2-1.3 [facility] Comment on above: Order Comment: Speci men Type: BLOOD SPECIMENOrdering Facility: [facility] Address: [address] [place] [address] Performed By: #### 2 4323-8 ####[facility] [id number] [place] [address] [place] Calcium [Mass/Vol] 9.3 mg/dL Normal 8.5-10.2 [facility] Comment on above: Order Comment: Speci men Type: BLOOD SPECIMENOrdering Facility: [facility] Address: [address] [place] [address] Performed By: #### 2 4323-8 ####[facility] [id number] [place] [address] [place] Chloride [Moles/Vol] 105 mmol/L Normal 98-107 [facility] Comment on above: Order Comment: Speci men Type: BLOOD SPECIMENOrdering Facility: [facility] Address: [address] [place] [address] Performed By: #### 2 4323-8 ####[facility] [id number] [place] [address] [place] CO2 [Moles/Vol] 26 mmol/L Normal 22-30 [facility] Comment on above: Order Comment: Speci men Type: BLOOD SPECIMENOrdering Facility: [facility] Address: [address] [place] [address] Performed By: #### 2 4323-8 ####[facility] [id number] [place] [address] [place] Creatinine [Mass/Vol] 0.97 mg/dL Normal 0.73-1.22 [facility] Comment on above: Order Comment: Speci men Type: BLOOD SPECIMENOrdering Facility: [facility] Address: [address] [place] [address] Performed By: #### 2 4323-8 ####[facility] [id number] [place] [address] [place] Creatinine and Glomerular filtration rate.predicted panel (S/P/Bld) 86 mL/min/1.73m??? Normal >=60 [facility] Comment on above: Order Comment: Speci men Type: BLOOD SPECIMENOrdering Facility: [facility] Address: [address] [place] [address] Result Comment: Jayshree mated Glomerular Filtration Rate (eGFR) is calculated using the 2020 CKD-EPI creatinine equation. This equation utilizes serum creatinine, sex, and age as parameters. The creatinine assay has traceable calibration to isotope dilution-mass spectrometry. Refer to KDIGO guidelines for clinical interpretation. In patients with unstable renal function, e.g. those with acute kidney injury, the eGFR may not accurately reflect actual GFR. Performed By: #### 2 4323-8 ####[facility] [id number] [place] [address] [place] Glucose [Mass/Vol] 201 mg/dL High 74-99 [facility] Comment on above: Order Comment: Speci men Type: BLOOD SPECIMENOrdering Facility: [facility] Address: [address] [place] [address] Result Comment: The [place] Diabetes [employer] (ADA) provides guidance for cutoff values for fasting glucose and random glucose. The ADA defines fasting as no caloric intake for at least 8 hours. Fasting plasma glucose results between 100 to 125 [...] Standards of Medical Care in Diabetes 2016, [place] [employer]. Diabetes Care. 2016.39(Suppl 1). Performed By: #### 2 4323-8 ####[facility] [id number] [place] [address] [place] Potassium [Moles/Vol] 3.5 mmol/L Low 3.7-5.1 [facility] Comment on above: Order Comment: Speci men Type: BLOOD SPECIMENOrdering Facility: [facility] Address: [address] [place] [address] Performed By: #### 2 4323-8 ####[facility] [id number] [place] [address] [place] Protein [Mass/Vol] 7.3 g/dL Normal 6.3-8.0 [facility] Comment on above: Order Comment: Speci men Type: BLOOD SPECIMENOrdering Facility: [facility] Address: [address] [place] [address] Performed By: #### 2 4323-8 ####[facility] [id number] [place] [address] [place] Sodium [Moles/Vol] 140 mmol/L Normal 136-144 [facility] Comment on above: Order Comment: Speci men Type: BLOOD SPECIMENOrdering Facility: [facility] Address: [address] [place] [address] Performed By: #### 2 4323-8 ####[facility] [id number] [place] [address] [place] Urea nitrogen [Mass/Vol] 14 mg/dL Normal 9-24 [facility] Comment on above: Order Comment: Speci men Type: BLOOD SPECIMENOrdering Facility: [facility] Address: [address] [place] [address] Performed By: #### 2 4323-8 ####[facility] [id number] TOMAS [place] [address] [place] Thoracic Spine 3 Viewson Thoracic Spine 3 Views [facility] Radiology [address] [place] [address] Thoracic Spine 3 Views MR#: [id number] Acct: [id number] Name: LAZARO GARZON Rep #: [id number] : 1955 M 68 From: Carrillo Quijano MD PCP: Dr. Jagjit Cheema MD Status: DEP AMB Study: Thoracic Spine 3 Views Date of Exam: 01/15/24 Exam# [id number] Ordering Dr: Asuncion Bardales :[id number] INDICATION: PAIN EXAMINATION/TECHNIQUE: X-RAY - XR Spine Thoracic 3 Views COMPARISON: December 15, 2022 FINDINGS: VERTEBRAE: Intrathecal neurostimulator is again noted. Mild likely positional levocurvature of the thoracic spine. Preserved mild thoracic kyphosis. Diffuse small flowing anterior lateral vertebral bridging osteophytes without focal disruption. No fracture or compression deformity. No spondylolisthesis. . DISCS: Disc spaces are maintained. INCLUDED CHEST/ABDOMEN: No acute abnormalities. RAD/Thoracic Spine 3 Views IMPRESSION: No evidence of acute injury or significant change from December 15, 2022. Diffuse idiopathic skeletal hyperostosis. Intrathecal neurostimulator noted. Electronically Signed: Carrillo Quijano MD at 8:55 EDT , CC: Asuncion Bardales; Dr. Jagjit Cheema MD Mobile Pet Groomer: Signed Normal [facility] CNOVon 12-29-2023 [facility] Office Visit (FAMPWS ) LAZARO GARZON ([id number]) 1955 M Date Time Provider Department 12/29/23 8:00 AM JAGJIT CHEEMA FAMPWS During your visit today, we recorded the following information about you: Pulse Blood pressure Weight Height 79/minute 176/78 148.8 kg 1.956 m aJgjit Cheema MD 12/29/2023 8:25 AM Signed Patient presents with: Follow Up HPI: Patient presents today for office visit for follow up. ADD: Current Treatment: Gautam Feels treatment is working well: Yes. Weight loss: No. Insomnia: No. GASTROENTEROLOGY complaints: No. Tremor: No. Mood disorder: No. Chest pain/Palpitations: No. Aware of risks associated with controlled substance use: Yes. Hx of misuse/abuse/diversion of meds: No. Strattera increased to 100 mg daily at last OV. Last here on 11/29/23 and felt medication was working well. Stated he had much better focus and concentration and felt more energized. Still doing well. Mentions being more tired here recently. Recently had a respiratory infection. Had ct scan that did not show infiltrate or pe. Did show old nodules unchanged in nearly 8 years Saw cardiology who stopped eliquis. He is not taking asa. Suggested he should resume 81 mg a day for prevention. No fever or chills. Has finished his antibiotics and steroids. Overall is feeling better. Breathing is slowly returning to normal. MEDICATIONS: Current Outpatient Medications Medication Sig potassium chloride (K-TAB) 10 mEq tablet Take 2 tablets by mouth once daily. atomoxetine (STRATTERA) 100 mg capsule Take 1 capsule by mouth once daily. tamsulosin (FLOMAX) 0.4 mg esomeprazole (NEXIUM) 40 mg capsule Take 1 capsule by mouth two times a day before meals. losartan (COZAAR) 50 mg tablet Take 1 tablet by mouth once daily. albuterol HFA (PROAIR HFA) 90 mcg/actuation inhaler Inhale 2 Puffs as instructed every 4 hours as needed (FOR COUGH OR WHEEZE). apixaban (ELIQUIS) 5 mg tab(s) Take 1 tablet by mouth twice daily. atorvastatin (LIPITOR) 20 mg tablet Take 1 tablet by mouth daily at bedtime. For cholesterol. amLODIPine (NORVASC) 5 mg tablet Take 1 tablet by mouth once daily. testosterone (ANDROGEL PUMP) 20.25 mg/1.25 gram (1.62 %) transdermal gel APPLY 4 PUMPS TOPICALLY DAILY. oxyCODONE-acetaminophen 5-325 mg (PERCOCET) as needed. CPAP Requires replacement machine at same settings. [...] F TRIAL SPINAL CORD STIMULATOR HEMORRHOIDECTOMY XTRNL > COLUMN/GROUP 04/30/2015 KNEE SURGERY HX Right 1988 LAPS SURG CHOLECYSTECTOMY W/CHOLANGIOGRAPHY 2004 [facility] - Dr. Bales OPEN REPAIR OF ROTATOR CUFF ACUTE Rotator cuff repair PERCUTANEOUS CORONARY INTERVENTION 2007 stent to LAD REPAIR EPIGASTRIC HERNIA,REDUC 07/19/2023 umbilical TONSILLECTOMY PRIMARY/SECONDARY Tonsillectomy FAMILY HISTORY Problem Relation Age of Onset Hypertension Mother Heart Mother Stroke Mother Allergies Mother Breast Cancer Mother Heart Father of [place] Allergies Father Asthma Daughter Allergies Sister Allergies Brother Allergies Daughter Social History Tobacco Use Smoking status: Former Packs/day: 2.00 Years: 5.00 Additional pack years: 0.00 Total pack years: 10.00 Types: Cigarettes Quit date: 02/08/1987 Years since quittin.9 Smokeless t (more content not included)... Normal [facility] Basic metabolic 2000 panelon 12-20-2023 Anion gap [Moles/Vol] 11 mmol/L Normal 8-15 [facility] Comment on above: Order Comment: Speci men Type: BLOOD SPECIMENOrdering Facility: [facility] Address: [address] [place] [address] Performed By: #### 2 4321-2 ####[facility] [id number] [place] [address] [place] Calcium [Mass/Vol] 9.1 mg/dL Normal 8.5-10.2 [facility] Comment on above: Order Comment: Speci men Type: BLOOD SPECIMENOrdering Facility: [facility] Address: [address] [place] [address] Performed By: #### 2 4321-2 ####[facility] [id number] [place] [address] [place] Chloride [Moles/Vol] 102 mmol/L Normal 98-107 [facility] Comment on above: Order Comment: Speci men Type: BLOOD SPECIMENOrdering Facility: [facility] Address: [address] [place] [address] Performed By: #### 2 4321-2 ####[facility] [id number] [place] [address] [place] CO2 [Moles/Vol] 26 mmol/L Normal 22-30 [facility] Comment on above: Order Comment: Speci men Type: BLOOD SPECIMENOrdering Facility: [facility] Address: [address] [place] [address] Performed By: #### 2 4321-2 ####[facility] [id number] [place] [address] [place] Creatinine [Mass/Vol] 1.03 mg/dL Normal 0.73-1.22 [facility] Comment on above: Order Comment: Speci men Type: BLOOD SPECIMENOrdering Facility: [facility] Address: [address] [place] [address] Performed By: #### 2 4321-2 ####[facility] [id number] [place] [address] [place] Creatinine and Glomerular filtration rate.predicted panel (S/P/Bld) 80 mL/min/1.73m??? Normal >=60 [facility] Comment on above: Order Comment: Speci men Type: BLOOD SPECIMENOrdering Facility: [facility] Address: [address] [place] [address] Result Comment: Jayshree mated Glomerular Filtration Rate (eGFR) is calculated using the 2020 CKD-EPI creatinine equation. This equation utilizes serum creatinine, sex, and age as parameters. The creatinine assay has traceable calibration to isotope dilution-mass spectrometry. Refer to KDIGO guidelines for clinical interpretation. In patients with unstable renal function, e.g. those with acute kidney injury, the eGFR may not accurately reflect actual GFR. Performed By: #### 2 4321-2 ####[facility] [id number] [place] [address] [place] Glucose [Mass/Vol] 118 mg/dL High 74-99 [facility] Comment on above: Order Comment: Speci men Type: BLOOD SPECIMENOrdering Facility: [facility] Address: [address] [id number] Result Comment: The [place] Diabetes Association (ADA) provides guidance for cutoff values for fasting glucose and random glucose. The ADA defines fasting as no caloric intake for at least 8 hours. Fasting plasma glucose results between 100 to 125 [...] Standards of Medical Care in Diabetes 2016, [place] [employer]. Diabetes Care. 2016.39(Suppl 1). Performed By: #### 2 4321-2 ####[facility] [id number] [place] [address] [place] Potassium [Moles/Vol] 3.8 mmol/L Normal 3.7-5.1 [facility] Comment on above: Order Comment: Speci men Type: BLOOD SPECIMENOrdering Facility: [facility] Address: [address] [id number] Performed By: #### 2 1-2 ####[facility] [id number] [place] [address] [place] Sodium [Moles/Vol] 139 mmol/L Normal 136-144 [facility] Comment on above: Order Comment: Speci men Type: BLOOD SPECIMENOrdering Facility: [facility] Address: [address] [id number] Performed By: #### 2 1-2 ####[facility] [id number] [place] [address] [place] Urea nitrogen [Mass/Vol] 16 mg/dL Normal 9-24 [facility] [place] Comment on above: Order Comment: Speci men Type: BLOOD SPECIMENOrdering Facility: [facility] Address: [address] [id number] Performed By: #### 2 4321-2 ####[facility] [id number] [facility] [address] [id number] [place] Cardiology Visit Reporton Cardiology Visit Report [facility] [address] [place] [address] OFFICE VISIT Date of Service: 12/20/23 MR#: [id number] Acct: [id number] Name: LAZARO GARZON Rep #: [id number] : 1955 Provider: Dr. Karl dickinson MD Age/Sex: 68/M Location: [facility] [place] Status: Signed HPI [facility] History of Present Illness Details: Patient is a 68-year-old white male that comes in with a history of paroxysmal atrial fibrillation and coronary artery disease. He also has a history of hypertension obstructive sleep apnea treated by CPAP he is overweight and has a history of hyperlipidemia. The patient is complaining about the cost of Eliquis he has a wearable that detected his atrial fibrillation/flutter when he initially presented back in June - July 2022. He underwent successful cardioversion and has remained in sinus rhythm since then. The patient reports that he is fairly active in his home environment he is currently complaining of getting over pneumonia and he remains on doxycycline and had a course of steroids recently. He is using his CPAP on a daily basis. Blood pressure in office today was adequately controlled at 144/78 heart rate 88 respiratory rate 18 unlabored O2 sat 97%. ECG showed sinus rhythm and first-degree AV block with incomplete right bundle branch block and a left anterior fascicular block. Intake Vital Signs 10/16/23 14:28 12/20/23 11:00 Height 6 ft 5 in 6 ft 5 in Weight: 324 lb BMI 38.4 BP 144/78 H Blood Pressure Location Lt brachial Position Sitting Respiration 18 Pulse 88 Pulse Source Monitor Pulse Oximetry (%) 97 Oxygen Delivery Method room air Intake Visit Reasons: 6 W FU [employer] Officer Required: No Accompanied by: Self Is patient in pain?: No Allergies Sulfa (Sulfonamide Antibiotics) Allergy (Verified 12/20/23 11:02) Unknown Medications ???Medication ???Instructions ???Recorded ???Confirmed ???Type multivitamin,wb-kbep-apzvwli s 27 1 tab PO DAILY supplement 12/10/13 12/20/23 History mg-0.4 mg tablet albuterol sulfate 90 mcg/actuation 1 - 2 puff inhalation Q6H PRN PRN 07/08/19 12/20/23 History aerosol inhaler Asthma esomeprazole magnesium 20 mg 40 mg PO DAILY acid reflux 10/01/20 12/20/23 History capsule,delayed release (Nexium) allopurinol 300 mg tablet 300 mg PO DAILY gout 10/20/21 12/20/23 History potassium chloride 10 mEq 20 meq PO DAILY hypokalemia 11/23/21 12/20/23 History tablet,extended release testosterone 4 pump transdermal DAILY low 11/23/21 12/20/23 History testosterone tamsulosin 0.4 mg capsule 0.4 mg PO DAILY prostate 04/29/22 12/20/23 History potassium chloride 20 mEq 40 meq (2 x 20 mEq) PO DAILY #8 12/14/22 12/20/23 Rx tablet,extended release tabs cholecalciferol (vitamin D3) 25 1,000 unit PO DAILY general health 12/15/22 12/20/23 History mcg (1,000 unit) tablet (Vitamin D3) aspirin 81 mg tablet,delayed 81 mg PO DAILY 07/05/23 12/20/23 History release losartan 50 mg tablet 50 mg PO DAILY #90 tabs 07/05/23 12/20/23 Rx amlodipine 5 mg tablet 10 mg PO DAILY htn 10/16/23 12/20/23 History atorvastatin 20 mg tablet 10 mg (1/2 x 20 mg) PO QHS #90 tabs 10/19/23 12/20/23 Rx Ejection fraction %: 55 Have you fallen in the past year?: No Nurse's Note: Pt does not have a medication list and states they have not changed since the last time he was here [facility] Medical History History of cardioversion First degree heart block Dyslipidemia Morbid obesity with BMI of 40.0-44.9, adult Paroxysmal atrial flutter Coronary artery disease Thrombocytopenia Failure of outpatient treatment Complicated urinary tract infection Dyspnea Atrial flutter History of shingles Fatigue History of pulmonary embolism Former tobacco use History of TIA (transient ischemic attack) Chest pain Rectal bleeding Pure hypercholesterolemia Acute pyelonephritis Prostate enlargement UTI (urinary tract infection) Dyspnea on exertion Claudication Fibromyalgia BPH (benign prostatic hyperplasia) GERD (gastroesophageal reflux disease) Essential hypertension Atherosclerotic heart disease of [place] coronary artery without angina pectoris Confusion Unstable angina HTN (hypertension) Abnormal myocardial perfusion study H/O percutaneous transluminal coronary angioplasty Abnormal stress test DEENA (obstructive sleep apnea) Pulmonary embolism Obesity Testosterone deficiency Surgical History Spinal cord stimulator status ( 05/2021) History of back surgery History of transurethral resection of prostate History of arthroscopy of right knee History of laparoscopic cholecystectomy Presence of coronary angioplasty i (more content not included)... Normal [facility] CBC W Auto Differential pane l (Bld)on 12-13-2023 Basophils (Bld) [#/Vol] 0.04 10*3/uL [facility] Basophils/100 WBC (Bld) 0.6 % [facility] Differential cell count method Nom (Bld) Auto [facility] Eosinophils (Bld) [#/Vol] 0.08 10*3/uL [facility] Eosinophils/100 WBC (Bld) 1.1 % [facility] Erythrocyte distribution width (RBC) [Ratio] 13.1 % 11.5 - 15.0 % [facility] Hematocrit (Bld) [Volume fraction] 47.9 % 39.0 - 51.0 % [facility] Hemoglobin (Bld) [Mass/Vol] 16.7 g/dL 13.0 - 17.0 g/dL [facility] Immature granulocytes (Bld) [#/Vol] [facility] Immature granulocytes/100 WBC (Bld) 0.3 % [facility] Lymphocytes (Bld) [#/Vol] 1.21 10*3/uL [facility] Lymphocytes/100 WBC (Bld) 16.8 % [facility] MCH (RBC) [Entitic mass] 29.6 pg 26.0 - 34.0 pg [facility] MCHC (RBC) [Mass/Vol] 34.9 g/dL 30.5 - 36.0 g/dL [facility] MCV (RBC) [Entitic vol] 84.9 fL 80.0 - 100.0 fL [facility] Monocytes (Bld) [#/Vol] 0.71 10*3/uL [facility] Monocytes/100 WBC (Bld) 9.8 % [facility] Neutrophils (Bld) [#/Vol] 5.15 10*3/uL [facility] Neutrophils/100 WBC (Bld) 71.4 % [facility] Nucleated RBC (Bld) [#/Vol] NINF [facility] Nucleated RBC/100 WBC (Bld) [Ratio] 0.0 % /100 WBC [facility] Platelet mean volume (Bld) [Entitic vol] 11.2 fL 9.0 - 12.7 fL [facility] Platelets (Bld) [#/Vol] 168 10*3/uL [facility] RBC (Bld) [#/Vol] 5.64 10*6/uL 4.20 - 6.00 m/uL [facility] WBC (Bld) [#/Vol] 7.21 10*3/uL [facility] Basophils (Bld) [#/Vol] 0.04 10*3/uL Normal <0.11 [facility] [place] Comment on above: Order Comment: Speci men Type: BLOOD SPECIMENOrdering Facility: [facility] Address: [address] [place] [address] Performed By: #### 5 7021-8 ####[facility] [id number] [place] [address] [place] [facility] Basophils/100 WBC (Bld) 0.6 % Normal [facility] [place] Comment on above: Order Comment: Speci men Type: BLOOD SPECIMENOrdering Facility: [facility] Address: [address] [place] [address] Performed By: #### 5 7021-8 ####[facility] ERNCLIA [id number] [place] [address] [place] Differential cell count method Nom (Bld) Auto Normal [facility] [place] Comment on above: Order Comment: Speci men Type: BLOOD SPECIMENOrdering Facility: [facility] Address: [address] [place] [address] Performed By: #### 5 7021-8 ####[facility] [id number] [place] [address] [place] Eosinophils (Bld) [#/Vol] 0.08 10*3/uL Normal <0.46 [facility] [place] [facility] Comment on above: Order Comment: Speci men Type: BLOOD SPECIMENOrdering Facility: [facility] Address: [address] [place] [address] Performed By: #### 5 7021-8 ####[facility] [id number] [place] [address] [place] Eosinophils/100 WBC (Bld) 1.1 % Normal [facility] Comment on above: Order Comment: Speci men Type: BLOOD SPECIMENOrdering Facility: [facility] Address: [address] [place] [address] Performed By: #### 5 7021-8 ####[facility] ERNCBARON [id number] [place] [address] [place] Erythrocyte distribution width (RBC) [Ratio] 13.1 % Normal 11.5-15.0 [facility] Comment on above: Order Comment: Speci men Type: BLOOD SPECIMENOrdering Facility: [facility] Address: [address] [place] [address] Performed By: #### 5 7021-8 ####[facility] ERNCLIEmma [id number] [place] [address] [place] Hematocrit (Bld) [Volume fraction] 47.9 % Normal 39.0-51.0 [facility] Comment on above: Order Comment: Speci men Type: BLOOD SPECIMENOrdering Facility: [facility] Address: [address] [place] [address] Performed By: #### 5 7021-8 ####[facility] ERNCL[facility] [id number] [place] [address] [place] Hemoglobin (Bld) [Mass/Vol] 16.7 g/dL Normal 13.0-17.0 [facility] Comment on above: Order Comment: Speci men Type: BLOOD SPECIMENOrdering Facility: [facility] Address: [address] [place] [address] Performed By: #### 5 7021-8 ####[facility] [id number] [place] [address] [place] Immature granulocytes (Bld) [#/Vol] 10*3/uL Normal <0.10 [facility] Comment on above: Order Comment: Speci men Type: BLOOD SPECIMENOrdering Facility: [facility] Address: [address] [place] [address] Performed By: #### 5 7021-8 ####[facility] [id number] [place] [address] [place] Immature granulocytes/100 WBC (Bld) 0.3 % Normal [facility] Comment on above: Order Comment: Speci men Type: BLOOD SPECIMENOrdering Facility: [facility] Address: [address] [place] [address] Performed By: #### 5 7021-8 ####[facility] [id number] [place] [address] [place] Lymphocytes (Bld) [#/Vol] 1.21 10*3/uL Normal 1.00-4.00 [facility] Comment on above: Order Comment: Speci men Type: BLOOD SPECIMENOrdering Facility: [facility] Address: [address] [place] [address] Performed By: #### 5 7021-8 ####[facility] [id number] [place] [address] [place] Lymphocytes/100 WBC (Bld) 16.8 % Normal [facility] Comment on above: Order Comment: Speci men Type: BLOOD SPECIMENOrdering Facility: [facility] Address: [address] [place] [address] Performed By: #### 5 7021-8 ####[facility] MILLCHARISMAWNCLIA [id number] [place] [address] [place] MCH (RBC) [Entitic mass] 29.6 pg Normal 26.0-34.0 [facility] Comment on above: Order Comment: Speci men Type: BLOOD SPECIMENOrdering Facility: [facility] Address: [address] [place] [address] Performed By: #### 5 7021-8 ####[facility] ER[facility] [id number] [place] [address] [place] MCHC (RBC) [Mass/Vol] 34.9 g/dL Normal 30.5-36.0 [facility] Comment on above: Order Comment: Speci men Type: BLOOD SPECIMENOrdering Facility: [facility] Address: [address] [place] [address] Performed By: #### 5 7021-8 ####[facility]CL[facility] [id number] [place] [address] [place] MCV (RBC) [Entitic vol] 84.9 fL Normal 80.0-100.0 [facility] Comment on above: Order Comment: Speci men Type: BLOOD SPECIMENOrdering Facility: [facility] Address: [address] [place] [address] Performed By: #### 5 7021-8 ####[facility] MILLLIVERMORENCLIA [id number] [place] [address] [place] Monocytes (Bld) [#/Vol] 0.71 10*3/uL Normal <0.87 [facility] Comment on above: Order Comment: Speci men Type: BLOOD SPECIMENOrdering Facility: [facility] Address: [address] [place] [address] Performed By: #### 5 7021-8 ####[facility] [id number] [place] [address] [place] Monocytes/100 WBC (Bld) 9.8 % Normal [facility] Comment on above: Order Comment: Speci men Type: BLOOD SPECIMENOrdering Facility: [facility] Address: [address] [place] [address] Performed By: #### 5 7021-8 ####[facility] [id number] [place] [address] [place] Neutrophils (Bld) [#/Vol] 5.15 10*3/uL Normal 1.45-7.50 [facility] Comment on above: Order Comment: Speci men Type: BLOOD SPECIMENOrdering Facility: [facility] Address: [address] [place] [address] Performed By: #### 5 7021-8 ####[facility] [id number] [place] [address] [place] Neutrophils/100 WBC (Bld) 71.4 % Normal [facility] Comment on above: Order Comment: Speci men Type: BLOOD SPECIMENOrdering Facility: [facility] Address: [address] [place] [address] Performed By: #### 5 7021-8 ####[facility] [id number] [place] [address] [place] Nucleated RBC (Bld) [#/Vol] 10*3/uL Normal <0.01 [facility] Comment on above: Order Comment: Speci men Type: BLOOD SPECIMENOrdering Facility: [facility] Address: [address] [place] [address] Performed By: #### 5 7021-8 ####[facility] [id number] [place] [address] [place] Nucleated RBC/100 WBC (Bld) [Ratio] 0.0 /100 WBC Normal [facility] Comment on above: Order Comment: Speci men Type: BLOOD SPECIMENOrdering Facility: [facility] Address: [address] [place] [address] Performed By: #### 5 7021-8 ####[facility] STEPHANI ADRYNCBARON [id number] [place] [address] [place] Platelet mean volume (Bld) [Entitic vol] 11.2 fL Normal 9.0-12.7 [facility] Comment on above: Order Comment: Speci men Type: BLOOD SPECIMENOrdering Facility: [facility] Address: [address] [place] [address] Performed By: #### 5 7021-8 ####[facility] ERNCBARON [id number] [place] [address] [place] Platelets (Bld) [#/Vol] 168 10*3/uL Normal 150-400 [facility] Comment on above: Order Comment: Speci men Type: BLOOD SPECIMENOrdering Facility: [facility] Address: [address] [place] [address] Performed By: #### 5 7021-8 ####[facility] ERNCLIA [id number] [place] [address] [place] RBC (Bld) [#/Vol] 5.64 10*6/uL Normal 4.20-6.00 [facility] Comment on above: Order Comment: Speci men Type: BLOOD SPECIMENOrdering Facility: [facility] Address: [address] [place] [address] Performed By: #### 5 7021-8 ####[facility] ERNCL[facility] [id number] [place] [address] [place] WBC (Bld) [#/Vol] 7.21 10*3/uL Normal 3.70-11.00 [facility] Comment on above: Order Comment: Speci men Type: BLOOD SPECIMENOrdering Facility: [facility] Address: [address], [place] [address] Performed By: #### 5 7021-8 ####[facility] STEPHANI HERNANDEZ [id number] [address] [id number] [place] CNOVon 12-13-2023 CNOV Office Visit (FAMPWS ) DURANLAZARO MCFARLANE ([id number]) 1955 M Date Time Provider Department 12/13/23 9:20 AM SUSAN KERR During your visit today, we recorded the following information about you: Temperature Pulse Respiration Blood pressure 98.7 degrees 64/minute 16/minute 140/86 Susan Kerr APRN.[employer] 12/13/2023 4:47 PM Signed This is a 68 year old male who presents today with: Patient presents with: Acute Visit: Shortness of breath, dizziness, cough, body aches x 1 week HISTORY OF PRESENT ILLNESS: Lazaro Garzon is a 68 year old male. Patient presents with: Acute Visit: Shortness of breath, dizziness, cough, body aches x 1 week Pt presents with trouble breathing, dizzy, aching, feeling rotten Started 1 week ago Couple days before started not feeling well, tried claritin and changing CPAP tubing driving up to [place], really hot, 'everything went black', pt lowered himself down to ground Proceeded to drive home, was nauseas, dizzy. Was able to make it home. Took off work Monday and rested Today is the worst in terms of shortness of breath and coughing Pt feels dizzy consistently throughout the day, pt 'feels not all the way there, foggy, when bad like walking on a boat' Pt noticed increased wheezing Having difficulty with activity due to shortness of breath Heat is making it worse Shortness of breath improves with rest Pt feels like he is breathing through water Increased non-productive cough, but notices break up of mucus in chest with coughing Has not needed albuterol inhaler consistently for years, now taking it 4-5 times daily Albuterol inhaler does help with some relief R sided chest and back pain 3/10, worse with deep breathing Chest is burning with deep breaths Back is sharp pain Pt has been off his eliquis and just restarted yesterday. Hx of PE X 2. Hx of pneumonia. Traveled to [place] a couple of weeks ago. No fevers/chills Body aches Dizziness Nausea and vomiting last week but nothing now Constipation, abdomen tenderness Wears CPAP at night Recent travel to [place] a few weeks ago Recently had pneumonia vaccine Pt has had similar feelings when he had pneumonia in the past PAST MEDICAL HISTORY: PAST MEDICAL HISTORY Diagnosis [...] Right 1988 LAPS SURG CHOLECYSTECTOMY W/CHOLANGIOGRAPHY 2004 [facility] - Dr. 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 EPIGASTRIC HERNIA,REDUC 07/19/2023 umbilical TONSILLECTOMY PRIMARY/SECONDARY Tonsillectomy ALLERGIES Sulfa (Sulfonamide Antibiotics) MEDICATIONS Current Outpatient Medications Medication Sig potassium chloride (K-TAB) 10 mEq tablet Take 2 tablets by mouth once daily. atomoxetine (STRATTERA) 100 mg capsule Take 1 capsule by mouth once daily. tamsulosin (FLOMAX) 0.4 mg esomeprazole (NEXIUM) 40 mg capsule Take 1 capsule by mouth two times a day before meals. losartan (COZAAR) 50 mg tablet Take 1 tablet by mouth once daily. albuterol HFA (PROAIR HFA) 90 mcg/actuation inhaler Inhale 2 Puffs as instructed every 4 hours as needed (FOR COUGH OR WHEEZE). apixaban (ELIQUIS) 5 mg tab(s) Take 1 tablet by mouth twice daily. atorvastatin (LIPITOR) 20 mg tablet Take 1 tablet by mouth daily at bedtime. For cholesterol. amLODIPine (NORVASC) 5 mg tablet Take 1 tablet by mouth once daily. testosterone (ANDROGEL PUMP) 20.25 mg/1.25 gram (1.62 %) transdermal gel APPLY 4 PUMPS TOPICALLY DAILY. oxyCODONE-acetaminophen 5-325 mg (PERCOCET) as needed. (Patie (more content not included)... [facility] (PERICO) LAZARO GARZON ([id number]) 1955 M Date Time Provider Department 12/13/23 SUSAN KERR During your visit today, we recorded the following information about you: Susan Kerr APRN.ROSITA 12/13/2023 11:01 AM Signed Pt schedule for stat CT at [place] at 3:00. Can we see if [facility] has anything sooner? Susan Kerr APRN.Reynaldo Ma LPN 12/13/2023 11:28 AM Signed Phoned [facility], order faxed. Pt can be scanned as soon as possible. LAUREN Costello Krystle, RN 12/13/2023 12:32 PM Signed Dyana with [facility] hospital calls to request order be changed to CT A Chest with and without contrast. Couldn't find that order to pend. Requests order be faxed back to [phone]. ERASMO Cherry Christy, APRN.ROSITA 12/13/2023 12:46 PM Signed Order placed. Please fax, as requested. Reynaldo Zarate LPN 12/13/2023 1:09 PM Signed Order faxed. Will leave encounter open until results recieved. LAUREN Costello Christy, APRN.[employer] 12/13/2023 3:56 PM Signed Can please call and let patient know that we received the labs and the CT results. His CT was negative for any blood clots. Lets go ahead and get him started on an antibiotic and a burst of prednisone. I sent doxycycline and prednisone to the pharmacy. Please review directions. His labs looked okay, except his potassium was just a little low. Please increase the potassium rich foods in the diet and recheck this in 1 week. Definitely let us know if there is no improvement or any worsening of his symptoms. Please go to the ER with any severe symptoms. Sara Maria LPN 12/13/2023 4:09 PM Signed Pt notified of results AND all instructions, pt voiced understanding. Sara Maria LPN Allergies As of Date: 12/13/2023 Noted Allergy Reaction SULFA (SULFONAMIDE ANTIBIOTICS) 03/10/2005 2 - Rash Date Reviewed: 12/13/2023 Reviewed by: Reynaldo Zarate LPN - Fully Assessed Reason for Visit: Orders [681] Primary Visit Diagnosis:Chest pain on breathing [R07.1] Other Visit Diagnoses:Sinobronchitis [J32.9, J40] Hypokalemia [E87.6] Order(s):CTA CHEST (NONGATED) WO/W IVCON [[id number]] Order #: [id number] FUTURE iv contrast (will be provided with radiology test)CTA CHEST - No IV access, insert saline lock prior to the sedation, infusion, injection for imaging exam. Discontinue saline lock post exam. If Pt. has a central line or IVAD, may access for administration according to line specific nursing protocol. Once exam is complete flush line and de-access according to line specific nursing protocol in the CT contrast administration guidelines link.Disp: 1 EachRfl: 0 doxycycline (VIBRA-TABS) 100 mg tabletTake 1 tablet by mouth two times a day for 10 days.Disp: 20 tabletRfl: 0 predniSONE (DELTASONE) 20 mg tabletTake 2 tablets by mouth once daily for 5 days.Disp: 10 tabletRfl: 0 BASIC METABOLIC PANEL [SQBMP] Order #: [id number] FUTURE Prescriptions as of 12/13/2023 - iv contrast (will be provided with radiology test) CT Chest PE -Inject, intravenously, once for 1 dose.No IV access, insert saline lock prior to the beginning of sedation, infusion, injection of imaging exam. Discontinue saline lock post exam. If Pt. has a central line or IVAD, may access for administration according to line specific nursing protocol. Once exam is complete flush line and de-access according to line specific nursing protocol in the CT contrast administration guidelines link. - iv contrast (will be provided with radiology test) CT Chest PE -Inject, intravenously, once for 1 dose.No IV access, insert saline lock prior to the beginning of sedation, infusion, injection of imaging exam. Discontinue saline lock post exam. If Pt. has a central line or IVAD, may access for administration according to line specific nursing protocol. Once exam is complete flush line and de-access according to line specific nursing protocol in the CT contrast administration guidelines link. - iv contrast (will be provided with radiology test) CTA CHEST - No IV access, insert saline lock prior to the sedation, infusion, injection for imaging exam. Discontinue saline lock post exam. If Pt. has a central line or IVAD, may access for administration according to line specific nursing protocol. Once exam is complete flush line and de-access according to line specific nursing protocol in the CT contrast administration guidelines link. - doxycycline (VIBRA-TABS) 100 mg tablet Take 1 tablet by mouth two times a day for 10 days. - predniSONE (DELTASONE) 20 mg tablet Take 2 tablets by mouth once daily for 5 days. - potassium chloride (K-TAB) 10 mEq tablet Take 2 tablets by mouth once daily. - atomoxetine (STRATTERA) 100 mg capsule Take 1 capsule by mouth once daily. - tamsulosin (FLOMAX) 0.4 mg - esomeprazole (NEXIUM) 40 mg capsule Take 1 capsule by mouth t (more content not included)... Normal [facility] CREATININE FINGERSTICKon Creatinine [Mass/Vol] 1.1 mg/dL Normal 0.70-1.30 [facility] Comment on above: Performed By: #### L 9100.0200 #### [facility] [address] [place], [address] EGFR WB > 60.0000 Normal >60 [facility] Comment on above: Performed By: #### L 9100.0200 #### [facility] [address] [facility]. [facility] [address] CTA Chest W/WO Contraston CTA Chest W/WO Contrast [facility] Services [address] [place] [address] CTA Chest W/WO Contrast MR#: [id number] Acct: [id number] Name: LAZARO GARZON Rep #: [id number] : 1955 M 68 From: Grace kamara MD PCP: Dr. Jagjit Cheema MD Status: [facility] Study: CTA Chest W/WO Contrast Date of Exam: 12/13/23 Exam# [id number] Ordering Dr: Susan Kerr NP CUSTOMER SERVICE CORRESPONDENCE CLERK -C :[id number] HISTORY: BACK PAIN. TECHNIQUE: CT angiogram of the chest was performed after the intravenous administration of 100 mL Isovue-370. Post-processing of the angiographic images was performed with multiplanar reformation and 3D reconstruction. Individualized dose optimization techniques were used for this CT. 1039 images. COMPARISON: 01/06/2016. FINDINGS: CENTRAL AIRWAYS: Patent. LUNGS: Very mild apical blebs. Motion artifact without acute alveolar consolidation. Stable 3 mm right lower lobe fissural nodules. PLEURA: No pneumothorax or significant pleural effusion. HEART/PERICARDIUM: Heart within normal limits in size. No pericardial effusion. PULMONARY ARTERIES: No filling defect. AORTA/VESSELS: No thoracic aortic aneurysm or dissection flap. MEDIASTINUM/GRETEL: No pathologically enlarged lymph nodes. OSSEOUS STRUCTURES: Degenerative change with thoracic spinal electrode noted. Multiple small sclerotic foci in the thoracic spine again seen, likely bone islands absent a history of risk factors for osteoblastic metastases. UPPER ABDOMEN: Small hepatic and renal cysts. Stable small left adrenal nodule. CT/CTA Chest W/WO Contrast IMPRESSION: No evidence of pulmonary embolism. Electronically Signed: Grace Morrison MD at 14:10 EDT , CC: SARA Kerr; Dr. Jagjit Cheema MD Mobile Pet Groomer: Signed Normal [facility] Comprehensive metabolic 2000 panelOrdered By: Elizabeth Malone on 12-13-2023 Albumin [Mass/Vol] 4.7 g/dL 3.9 - 4.9 g/dL [facility] ALP [Catalytic activity/Vol] 90 U/L 38 - 113 U/L [facility] ALT [Catalytic activity/Vol] 31 U/L 10 - 54 U/L [facility] Anion gap [Moles/Vol] 12 mmol/L 8 - 15 mmol/L [facility] AST [Catalytic activity/Vol] 21 U/L 14 - 40 U/L [facility] Bilirubin [Mass/Vol] 0.8 mg/dL 0.2 - 1 .3 mg/dL [facility] Calcium [Mass/Vol] 9.3 mg/dL 8.5 - 10. 2 mg/dL [facility] Chloride [Moles/Vol] 105 mmol/L 98 - 10 7 mmol/L [facility] CO2 [Moles/Vol] 23 mmol/L 22 - 30 mmol/L [facility] Creatinine [Mass/Vol] 0.88 mg/dL 0.73 - 1.22 mg/dL [facility] GFR/1.73 sq M.predicted among non-blacks MDRD (S/P/Bld) [Vol rate/Area] 95 mL/min/{1.73_m2} - PINF [facility] Comment on above: Estimated Glomerular Filtration Rate (eGFR) is calculated using the 2020 CKD-EPI creatinine equation. This equation utilizes serum creatinine, sex, and age as parameters. The creatinine assay has traceable calibration to isotope dilution-mass spectrometry. Refer to KDIGO guidelines for clinical interpretation. In patients with unstable renal function, e.g. those with acute kidney injury, the eGFR may not accurately reflect actual GFR. Glucose [Mass/Vol] 79 mg/dL 74 - 99 mg/dL [facility] Comment on above: The [place] Diabete s Association (ADA) provides guidance for cutoff values for fasting glucose and random glucose. The ADA defines fasting as no caloric intake for at least 8 hours. Fasting plasma glucose results between 100 to 125 [...] Standards of Medical Care in Diabetes 2016, [place] Diabetes Association. Diabetes Care. 2016.39(Suppl 1). Interpretation and review of laboratory results Abnormal [facility] Potassium [Moles/Vol] 3.5 mmol/L Low 3.7 - 5.1 mmol/L [facility] Protein [Mass/Vol] 7.9 g/dL 6.3 - 8.0 g/dL [facility] Sodium [Moles/Vol] 140 mmol/L 136 - 144 mmol/L [facility] Urea nitrogen [Mass/Vol] 18 mg/dL 9 - 24 mg/dL [facility] Comprehensive metabolic 2000 panelon 12-13-2023 Albumin [Mass/Vol] 4.7 g/dL Normal 3.9-4.9 [facility] Comment on above: Order Comment: Speci men Type: BLOOD SPECIMENOrdering Facility: [facility] Address: [address] [place] [address] Performed By: #### 2 4323-8 ####[facility] [id number] [place] [address] [place] ALP [Catalytic activity/Vol] 90 U/L Normal 38-113 [facility] Comment on above: Order Comment: Speci men Type: BLOOD SPECIMENOrdering Facility: [facility] Address: [address] [place] [address] Performed By: #### 2 4323-8 ####[facility] [place]ILL[place]OWNCLIA [id number] [place] [address] [place] ALT [Catalytic activity/Vol] 31 U/L Normal 10-54 [facility] Comment on above: Order Comment: Speci men Type: BLOOD SPECIMENOrdering Facility: [facility] Address: [address] [place] [address] Performed By: #### 2 4323-8 ####[facility] [id number] [place] [address] [place] Anion gap [Moles/Vol] 12 mmol/L Normal 8-15 [facility] Comment on above: Order Comment: Speci men Type: BLOOD SPECIMENOrdering Facility: [facility] Address: [address] [place] [address] Performed By: #### 2 4323-8 ####[facility] [id number] [place] [address] [place] AST [Catalytic activity/Vol] 21 U/L Normal 14-40 [facility] Comment on above: Order Comment: Speci men Type: BLOOD SPECIMENOrdering Facility: [facility] Address: [address] [place] [address] Performed By: #### 2 4323-8 ####[facility] [id number] [place] [address] [place] Bilirubin [Mass/Vol] 0.8 mg/dL Normal 0.2-1.3 [facility] Comment on above: Order Comment: Speci men Type: BLOOD SPECIMENOrdering Facility: [facility] Address: [address] [place] [address] Performed By: #### 2 4323-8 ####[facility] [place]TOWNCLIA [id number] [place] [address] [place] Calcium [Mass/Vol] 9.3 mg/dL Normal 8.5-10.2 [facility] Comment on above: Order Comment: Speci men Type: BLOOD SPECIMENOrdering Facility: [facility] Address: [address] [place] [address] Performed By: #### 2 4323-8 ####[facility] MILLTOWNCLIA [id number] [place] [address] [place] Chloride [Moles/Vol] 105 mmol/L Normal 98-107 [facility] Comment on above: Order Comment: Speci men Type: BLOOD SPECIMENOrdering Facility: [facility] Address: [address] [place] [address] Performed By: #### 2 4323-8 ####[facility] MILLWNCLIA [id number] [place] [address] [place] CO2 [Moles/Vol] 23 mmol/L Normal 22-30 [facility] Comment on above: Order Comment: Speci men Type: BLOOD SPECIMENOrdering Facility: [facility] Address: [address] [place] [address] Performed By: #### 2 4323-8 ####[facility] MILLTOWNCLIA [id number] [place] [address] [place] Creatinine [Mass/Vol] 0.88 mg/dL Normal 0.73-1.22 [facility] Comment on above: Order Comment: Speci men Type: BLOOD SPECIMENOrdering Facility: [facility] Address: [address] [place] [address] Performed By: #### 2 4323-8 ####[facility] MILLTOWNCLIA [id number] [place] [address] [place] Creatinine and Glomerular filtration rate.predicted panel (S/P/Bld) 95 mL/min/1.73m??? Normal >=60 [facility] Comment on above: Order Comment: Dunia peters Type: BLOOD SPECIMENOrdering Facility: [facility] Address: [address] [place] [address] Result Comment: Jayshree mated Glomerular Filtration Rate (eGFR) is calculated using the 2020 CKD-EPI creatinine equation. This equation utilizes serum creatinine, sex, and age as parameters. The creatinine assay has traceable calibration to isotope dilution-mass spectrometry. Refer to KDIGO guidelines for clinical interpretation. In patients with unstable renal function, e.g. those with acute kidney injury, the eGFR may not accurately reflect actual GFR. Performed By: #### 2 4323-8 ####[facility] [id number] [place] [address] [place] Glucose [Mass/Vol] 79 mg/dL Normal 74-99 [facility] Comment on above: Order Comment: Dunia peters Type: BLOOD SPECIMENOrdering Facility: [facility] Address: [address] [place] [address] Result Comment: The [place] Diabetes Association (ADA) provides guidance for cutoff values for fasting glucose and random glucose. The ADA defines fasting as no caloric intake for at least 8 hours. Fasting plasma glucose results between 100 to 125 [...] Standards of Medical Care in Diabetes 2016, [place] Diabetes Association. Diabetes Care. 2016.39(Suppl 1). Performed By: #### 2 4323-8 ####[facility] ERNCL[facility] [id number] [place] [address] [place] Potassium [Moles/Vol] 3.5 mmol/L Low 3.7-5.1 [facility] Comment on above: Order Comment: Speci men Type: BLOOD SPECIMENOrdering Facility: [facility] Address: [address] [place] [address] Performed By: #### 2 4323-8 ####[facility] LORNAChitoNCLIA [id number] [place] [address] [place] Protein [Mass/Vol] 7.9 g/dL Normal 6.3-8.0 [facility] Comment on above: Order Comment: Speci men Type: BLOOD SPECIMENOrdering Facility: [facility] Address: [address] [place] [address] Performed By: #### 2 4323-8 ####[facility] ERNCLIA [id number] [place] [address] [place] Sodium [Moles/Vol] 140 mmol/L Normal 136-144 [facility] Comment on above: Order Comment: Speci men Type: BLOOD SPECIMENOrdering Facility: [facility] Address: [address] [place] [address] Performed By: #### 2 4323-8 ####[facility] ERNCLIA [id number] [place] [address] [place] Urea nitrogen [Mass/Vol] 18 mg/dL Normal 9-24 [facility] Comment on above: Order Comment: Speci men Type: BLOOD SPECIMENOrdering Facility: [facility] Address: [address] [place] [address] Performed By: #### 2 4323-8 ####[facility] ERNCL[facility] [id number] [place] [address] [place] Stress Reporton 12-05-2023 Stress Report [facility] [address] [place] [address] MR#: [id number] Acct: [id number] Name: LAZARO GARZON Rep #: [id number] : 1955 68 From: Flores Glover MD Primary Care: Dr. Jagjit Cheema MD Status: REG CLI Referring Dr: Flores Glover MD Sex: M C Stress Test Report Date: 12/01/2023 Procedure: Pharmacologic stress nuclear imaging study Indications: Coronary artery disease Consent: Per the patient Procedure: The patient underwent pharmacologic (Regadenoson 0.4mg ) evaluation with a peak heart rate of 80 beats per minute (51%predicted maximal heart rate) and a peak blood pressure of 148/80 mmHg. The baseline ECG demonstrated sinus rhythm with first-degree AV block. The peak pharmacologic ECG demonstrated no ischemic changes. PVCs noted at rest as well as postinfusion. There was no complaint of chest discomfort during pharmacologic infusion or recovery. The patient was injected with 15.0 millicuries of technetium 99m Cardiolite and subsequently rest SPECT Cardiolite nuclear imaging was obtained in the horizontal long, vertical long, and short axis views. The patient underwent pharmacologic (Regadenoson) evaluation. The patient was injected with 44.8 millicuries of technetium 99m Cardiolite and subsequently stress SPECT Cardiolite nuclear imaging was obtained in the horizontal long, vertical long, and short axis views. A gated Cardiolite study at peak stress was obtained. The examination was stopped secondary to completion of protocol. Rest and stress SPECT Cardiolite nuclear imaging status post realignment, normalization, and attenuation correction demonstrate no fixed or reversible perfusion defects. There is end systolic thickening and brightening. The gated Cardiolite study demonstrates myocardial thickening and inward wall motion. The reported LVEF is 61%. Impression: 1. Pharmacologic (Regadenoson) evaluation 2. Peak pharmacologic ECG with no ischemic changes. 3. PVCs noted at baseline as well as during infusion and in recovery. 5. Rest and stress SPECT Cardiolite nuclear imaging demonstrate relative uniform tracer uptake and myocardial perfusion appearing within normal limits. 6. The gated Cardiolite study reports an LVEF of 61%. This note was generated with Amor[employer]te software. It may contain incorrect words, spelling, and punctuation that were not noted in checking the note before signing. 12/05/23 1250 Date Flores Glover MD CC: Dr. Flores Glover MD; Dr. Jagjit Cheema MD Date Dictated: 12/05/231247 Date Transcribed: 12/05/231247 Mobile Pet Groomer: TANIA Hauser [facility] Echo Completeon 12-01-2023 Echo Complete [facility] [address] [place] [address] Echo Complete 12/01/23 0945 MR#: [id number] Acct: [id number] Name: LAZARO GARZON Rep #: [id number] : 1955 68 From: Flores Glover MD Attending Dr: Dr. Flores Glover MD Status: REG CLI Ordering Dr: Flores Glover MD Date: 12/01/23 Location: [facility] Sex: M C Admitted: Reason For Study: ASHD/CAD Procedure This was a 2D Doppler, Color Flow transthoracic echocardiogram. Exam performed in department. Left Ventricle Normal LV size. Moderate concentric left ventricular hypertrophy. The left ventricular ejection fraction is 65 %. Diastolic function is indeterminate. Right Ventricle Normal right ventricle. Atria There is severe biatrial dilatation. Mitral Valve Mild (1+) mitral valve insufficiency. Tricuspid Valve Trivial tricuspid valve insufficiency. Unable to estimate RV systolic pressure due to insufficient tricuspid regurgitant envelope. Aortic Valve Trisinus/trileaflet aortic valve. Pulmonic Valve The pulmonic valve is not well visualized. Great Vessels Mildly dilated aortic root. Pericardium/Pleural No pericardial effusion. MMode/2D Measurements Calculations LVIDd: 5.2 cm IVSd: 1.6 cm Ao root diam: 3.7 cm LVIDs: 3.2 cm LVPWd: 1.3 cm LA dimension: 5.3 cm RVDd: 4.2 cm FS: 37.6 % LAV(MOD-bp): 99.3 ml LVAd ap4: 34.2 cm2 SV(MOD-sp4): 50.8 ml LAV(MOD-bp) Indexed: 36.4 ml/m2 LVLd ap4: 9.2 cm LAV(MOD-sp2): 94.1 ml EDV(MOD-sp4): 107.3 ml LAV(MOD-sp4): 95.1 ml EDV(sp4-el): 108.2 ml LVAs ap4: 22.7 cm2 LVLs ap4: 8.2 cm ESV(MOD-sp4): 56.5 ml ESV(sp4-el): 53.6 ml EF(MOD-sp4): 47.4 % EF(sp4-el): 50.5 % SV(sp4-el): 54.6 ml LA A4 area: 26.4 cm2 RA A4 area: 26.3 cm2 TAPSE: 2.0 cm Time Measurements MV dec time: 0.27 sec Doppler Measurements Calculations MV E max yasmeen: 60.0 cm/sec Lat Peak E' Yasmeen: 7.6 cm/sec Med Peak E' Yasmeen: 6.3 cm/sec MV A max yasmeen: 68.9 cm/sec E/E' lat: 7.9 E/E' med: 9.6 MV E/A: 0.87 MV V2 max: 92.8 cm/sec MV P1/2t max yasmeen: 83.0 cm/sec Ao V2 max: 109.2 cm/sec MV max P.4 mmHg MV P1/2t: 88.5 msec Ao max P.8 mmHg MV V2 mean: 50.5 cm/sec MV dec slope: 274.6 cm/sec2 Ao V2 mean: 77.5 cm/sec MV mean P.2 mmHg Ao mean P.8 mmHg MV V2 VTI: 26.9 cm MVA(P1/2t): 2.5 cm2 Ao V2 VTI: 26.3 cm AV (velocity ratio): 0.83 LV V1 max: 96.4 cm/sec PA V2 max: 112.2 cm/sec LV V1 max P.7 mmHg LV V1 mean P.1 mmHg LV V1 mean: 67.1 cm/sec LV V1 VTI: 21.8 cm ECHO/Echo Complete Interpretation Summary Moderate concentric left ventricular hypertrophy. The left ventricular ejection fraction is 65 %. Diastolic function is indeterminate. There is severe biatrial dilatation. Mild (1+) mitral valve insufficiency. Mildly dilated aortic root. Ordering Physician: Flores Glover Performed By: Ming Ruiz and Student 12/07/23 1237 Date Flores Glover MD CC: Dr. Flores Glover MD; Dr. Jagjit Cheema MD Date Dictated: 12/01/23 0945 Date Transcribed: 12/07/23 1237 Mobile Pet Groomer: Signed [facility] 11-29-2023 [facility] Office Visit (FAMPWS ) LAZARO GARZON ([id number]) 1955 M Date Time Provider Department 11/29/23 2:00 PM [facility] During your visit today, we recorded the following information about you: Pulse Blood pressure Weight 78/minute 136/84 147.9 kg Jagjit Cheema MD 11/29/2023 3:04 PM Signed Patient presents with: Follow Up HPI: Patient presents today for office visit for follow up. ADD: Current Treatment: Strattera Feels treatment is working well: Yes. Much better with focus and concentration. Actually has helped with some panic sensations. More energy. Weight loss: No. Insomnia: No. GASTROENTEROLOGY complaints: No. Tremor: No. Mood disorder: No. Chest pain/Palpitations: No. Note was copied and pasted, without alteration from previous: Could not connect connect via zoom. Counselor thinks he has ADD. He has issues with focus. Has to work with talking with people. Feels like his attention is often all over the place and affects his emotions Was on wellbutrin. Also on celexa in the past. He is reluctant to try stimulants. MEDICATIONS: Current Outpatient Medications Medication Sig atomoxetine (STRATTERA) 40 mg capsule Take one cap po q day for one week and then increase to 80 mg a day tamsulosin (FLOMAX) 0.4 mg esomeprazole (NEXIUM) 40 mg capsule Take 1 capsule by mouth two times a day before meals. losartan (COZAAR) 50 mg tablet Take 1 tablet by mouth once daily. albuterol HFA (PROAIR [...] PUMPS TOPICALLY DAILY. oxyCODONE-acetaminophen 5-325 mg (PERCOCET) as needed. (Patient not taking: Reported on 07/31/2023) CPAP Requires replacement machine at same settings. [...] Right 1988 LAPS SURG CHOLECYSTECTOMY W/CHOLANGIOGRAPHY 2004 [facility] - Dr. 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 EPIGASTRIC HERNIA,REDUC 07/19/2023 umbilical TONSILLECTOMY PRIMARY/SECONDARY Tonsillectomy FAMILY HISTORY Problem Relation Age of Onset Hypertension Mother Heart Mother Stroke Mother Allergies Mother Breast Cancer Mother Heart Father of [place] Allergies Father Asthma Daughter Allergies Sister Allergies [...] used Substance Use Topics Alcohol use: Not (more content not included)... Normal [facility] Basophil percentageOrdered B y: Flores Adalberto on 10-18-2023 Bilirubin [Mass/Vol] 1.00 mg/dL 0.20-1.00 [facility] Comment on above: For patients on eltr ombopag therapy, use of Dimension [place] TBIL is not recommended. Chloride [Moles/Vol] 110 mmol/L 98-107 [facility] Cholesterol [Mass/Vol] 75 mg/dL <200 [facility] Comment on above: <200 mg/dL Desirable 200-240 mg/dL Borderline >240 mg/dL High Risk Glucose [Mass/Vol] 119 mg/dL 74-106 [facility] Comment on above: Fasting Glucose resu lt from 100 to 125 mg/dL suggests IMPAIRED HOMEOSTASIS per A.D.A. criteria. Hemoglobin (Bld) [Mass/Vol] 15.3 g/dL 13.0-16.5 [facility] Potassium [Moles/Vol] 3.6 mmol/L 3.5-5.1 [facility] Protein [Mass/Vol] 7.2 g/dL 6.4-8.2 [facility] Sodium [Moles/Vol] 141 mmol/L 136-145 [facility] Triglyceride [Mass/Vol] 147 mg/dL <199 [facility] Comment on above: The drugs N-Acetylcy steine and Metamizole may falsely depress this assay.Serum Triglycerides Reference Interval Normal <150 mg/dL Borderline high 150 - 199 mg/dL High 200 - 499 mg/dL Very High > or = 500 mg/dL WBC (Bld) [#/Vol] 4.6 10*3/uL 4.4-11.0 [facility] Determination of erythrocyte mean corpuscular volume (MCV)Ordered By: Flores Glover on 10-18-2023 MCV (RBC) [Entitic vol] 86.7 fL 80-94 [facility] Erythrocyte distribution wid th ratioOrdered By: [facility] 10-18-2023 Erythrocyte distribution width (RBC) [Ratio] 14.0 % 11.6-14.6 [facility] Erythrocyte distribution wid th standard deviationOrdered By: Floresduncan Glover on 10-18-2023 Erythrocyte distribution width (RBC) [Entitic vol] 44.5 fL 35.1-43.9 [facility] Hematocrit Auto (Bld) [Volum e fraction]Ordered By: Floresduncan Glover on 10-18-2023 Hematocrit (Bld) [Volume fraction] 44.4 % 40-54 [facility] - Chemistry and C hemistry - challengeOrdered By: Flores Glover on 10-18-2023 Albumin/Globulin [Mass ratio] 1.2 {ratio} 0.9-2.4 [facility] ALP [Catalytic activity/Vol] 78 U/L 45-117 [facility] ALT [Catalytic activity/Vol] 33 U/L 16-61 [facility] Cholesterol in HDL [Mass/Vol] 28 mg/dL >40 [facility] Comment on above: The drugs N-Acetylcy steine and Metamizole may falsely depress this assay. Reference Range HDL <40 mg/dL Low HDL Cholesterol HDL >or= 60 mg/dL High HDL Cholesterol Cholesterol in LDL [Mass/Vol] 18 mg/dL 0-130 [facility] CO2 [Moles/Vol] 26.0 mmol/L 21.0-32.0 [facility] Globulin (S) [Mass/Vol] 3.2 g/dL 2.2-4.2 [facility] Magnesium [Mass/Vol] 1.9 mg/dL 1.6-2.6 [facility] Urea nitrogen/Creatinine [Mass ratio] 15.8 mg/mg 10-20 [facility] - Hematology and Cell countsOrdered By: Flores Glover on 10-18-2023 MCH (RBC) [Entitic mass] 29.9 pg 27.0-32.0 [facility] MCHC (RBC) [Mass/Vol] 34.5 g/dL 32-36 [facility] Platelet mean volume (Bld) [Entitic vol] 11.6 fL 6.2-12.0 [facility] Platelets (Bld) [#/Vol] 130 10*3/uL 150-450 [facility] No Panel InformationOrdered By: Flores Glover on 10-18-2023 Estimated GFR (MDRD) Amer 102 mL/min >60 [facility] Comment on above: GFR Calc Estimated GFR (MDRD) Non-Af Amer 84 mL/min >60 [facility] Comment on above: Non- GFR Calc VLDL Cholesterol 29 mg/dL 5-40 [facility] RBC Auto (Bld) [#/Vol]Ordere d By: Flores Glover on 10-18-2023 RBC (Bld) [#/Vol] 5.12 10*6/uL 4.6-6.2 [facility] Serum or plasma calcium peterson urement (mass/volume)Ordered By: Flores Glover on 10-18-2023 Calcium [Mass/Vol] 8.7 mg/dL 8.5-10.1 [facility] Serum or plasma creatinine m easurement (mass/volume)Ordered By: Flores Glover on 10-18-2023 Creatinine [Mass/Vol] 0.95 mg/dL 0.70-1.30 [facility] Comment on above: The validity of the calculated GFR & GFRAA in patients over 70 years has not been determined. Clinical correlation is essential. Serum or plasma urea nitroge n measurement (mass/volume)Ordered By: Flores Glover on 10-18-2023 Urea nitrogen [Mass/Vol] 15 mg/dL 7-18 [facility] Thin prep Papanicolaou smear with manual screeningOrdered By: Flores Glover on 10-18-2023 Thin prep Papanicolaou smear with manual screening 4.0 g/dL 3.2-5.0 [facility] Thin prep Papanicolaou smear with manual screening 19 U/L 15-37 [facility] Thin prep Papanicolaou smear with manual screening 5 5-15 [facility] ANES POSTPROC EVALon 024 ANES POSTPROC EVAL HNO ID: [id number] Author: VEE LOVING MD Service: Anesthesiology Author Type: Anesthesiologist Type: Anesthesia Postprocedure Evaluation Filed: 07/19/2023 10:38 Note Text: POST ANESTHESIA EVALUATION NOTE : 1955 Procedure Summary Date: 07/19/23 Room / Location: [place] [address] / SD OR Anesthesia Start: 900 Anesthesia Stop: 100 Procedure: HERNIORRHAPHY UMBILICAL REDUCIBLE 3cm-10cm (Abdomen) Diagnosis: Umbilical hernia without obstruction or gangrene (Umbilical hernia without obstruction or gangrene [K42.9]) Surgeons: Robby Bales MD Responsible Provider: Vee Loving MD Anesthesia Type: general ASA Status: 3 Anesthesia Type: general Airway Type: ETT Last Vitals Vitals Value Taken Time BP 131/63 07/19/23 1030 Temp 36.2 ?C (97.2 ?F) 07/19/23 1008 Pulse 62 07/19/23 1036 Resp 11 07/19/23 1036 SpO2 97 % 07/19/23 1036 Vitals shown include unfiled device data. Post Anesthesia Patient Status Patient Evaluation: PACU. PACU/ICU Patient Condition: stable. Anticipated Disposition: phase 2 then home. Neurological Status: sleepy but arousable. Pulmonary Status: breathing comfortably on supplemental oxygen Airway Control: returned to baseline unsupported. Cardiovascular Status: stable. Pain Management: clinically adequate - multimodal analgesia pain management approach Postoperative Hydration: acceptable. Intraoperative Events: no significant anesthesia events Post Operative Nausea/Vomiting Status: no significant post operative nausea or vomiting Recommendation: continue current plan of care. Anesthesia Observations No Documentation SIGNATURE: Vee Loving MD PATIENT NAME: Lazaro Garzon DATE: July 19, 2023 TIME: 10:38 AM CSN: [id number] [facility] ANES PRE-OPon 07-19-2023 ANES PRE-OP HNO ID: [id number] Author: VEE LOVING MD Service: Anesthesiology Author Type: Anesthesiologist Type: Anesthesia Preprocedure Evaluation Filed: 07/19/2023 08:12 Note Text: ANESTHESIOLOGY DAY OF SURGERY NOTE : 1955 Procedure Information Date/Time: 07/19/2356 Procedure: HERNIORRHAPHY UMBILICAL REDUCIBLE 3cm-10cm (Abdomen) Location: SD OR / SD OR Surgeons: Robby Bales MD Estimated body mass index is 40.44 kg/m? as calculated from the following: Height as of 07/05/23: 195.6 cm (6' 5). Weight as of 07/05/23: 154.7 kg (341 lb). Most recent hematocrit and potassium results: Hematocrit 40.3 12/19/2022 Potassium 4.2 02/08/2023 Relevant Problems ANESTHESIA (+) Sleep apnea CARDIO (+) Atrial flutter (HCC) (+) CAD (coronary artery disease) s/p PTCA/STENT. (+) Essential hypertension, benign GI (+) Esophageal reflux NEURO-PSYCH (+) History of TIAs (+) History of colonic polyps (+) History of pulmonary embolism PULMONARY (+) Asthma (+) Sleep apnea I - PHYSICAL EVALUATION AIRWAY Patient intubated: No. Tracheostomy tube not present Mallampati: II. TM distance: >3 FB. Neck ROM: full ROM without neurological symptoms. Mouth opening: adequate. Short neck: no. Thick neck: no Herrera present: yes DENTAL Dental findings: teeth intact, missing tooth/teeth and chipped. Additional exam findings: yes. CARDIOVASCULAR Rhythm: regular Rate: normal PULMONARY Breath sounds clear to auscultation. ABDOMINAL Obese: obesity present. II - ANESTHESIA PLAN ASA Score: 3 Anesthetic Plan: general Airway type: ETT The patient is not a current smoker. NPO Status: adequate Beta Jacob Monitoring Plan Monitoring plan: Standard ASA. Post Procedure Analgesic Plan Postoperative analgesic plan: parenteral or oral opioids and multimodal analgesia. Informed Consent Anesthetic risks, benefits, alternatives, personnel and consent discussed: yes. Patient / Responsible Constitution Party agrees to proceed: yes Patient / Surrogate agrees to blood products: yes DNR status not reviewed with patient and/or family prior to surgery. Significant changes in the patient condition since the History and Physical, not otherwise documented in primary service progress note: no. Potential Anesthesia issues that may suggest increased risk of complications or contraindication to planned procedure: none. Vitals Value Taken Time BP 166/78 07/19/23745 Pulse 58 07/19/23745 Resp 18 07/19/23745 Temp 36.2 ?C (97.2 ?F) 07/19/23745 SpO2 98 % 07/19/23745 Facility-Administered Medications as of 07/19/2023 Medication Dose Route Frequency - lidocaine (PF) 10 mg/mL (1 %) 1-2 mg injection (XYLOCAINE) 0.1-0.2 mL INTRADERMAL PRN - lactated ringers iv infusion 5-30 mL/hr INTRAVENOUS CONTINUOUS - NaCl 0.9% iv flush bag 20 mL INTRAVENOUS PRN - ceFAZolin 3 g in D5W 100 mL (ANCEF) 3 g INTRAVENOUS Pre-Op Once - [COMPLETED] acetaminophen 1,000 mg tab(s) (TYLENOL) 1,000 mg ORAL Pre-Op Once - [COMPLETED] promethazine 12.5 mg tab(s) (PHENERGAN) 12.5 mg ORAL Pre-Op Once - ipratropium-albuterol 3 mL nebulizer solution (DUONEB) 3 mL INHALATION ONCE Outpatient Medications as of 07/19/2023 Medication Sig - allopurinol (ZYLOPRIM) 300 mg tablet Take 1 tablet by mouth once daily. For gout. - potassium chloride (K-TAB) 10 mEq tablet Take 2 tablets by mouth once daily. - apixaban (ELIQUIS) 5 mg tab(s) Take 1 tablet by mouth twice daily. - atorvastatin (LIPITOR) 20 mg tablet Take 1 tablet by mouth daily at bedtime. For cholesterol. - amLODIPine (NORVASC) 5 mg tablet Take 1 tablet by mouth once daily. - testosterone (ANDROGEL PUMP) 20.25 mg/1.25 gram (1.62 %) transdermal gel APPLY 4 PUMPS TOPICALLY DAILY. - oxyCODONE-acetaminophen 5-325 mg (PERCOCET) as needed. - losartan (COZAAR) 25 mg tablet Take 1 tablet by mouth once daily. - esomeprazole (NEXIUM) 40 mg capsule Take 1 capsule by mouth twice daily before meals. - CPAP Requires replacement machine at same settings. - MULTIVITAMIN TAB Take one(1) tablet daily BY MOUTH. - gabapentin (NEURONTIN) 300 mg capsule Take 1 capsule by mouth daily at bedtime for 90 days. For three days and then increase bid. - albuterol HFA (PROAIR HFA) 90 mcg/actuation inhaler Inhale 2 Puffs as instructed every 4 hours as needed (FOR COUGH OR WHEEZE). - Cholecalciferol, Vitamin D3, (VITAMIN D) 1,000 unit cap Take 1 capsule by mouth once daily. - cyanocobalamin (VITAMIN B-12) 1,000 mcg tab Take 1,000 mcg by mouth once daily. I have interviewed and examined the patient. I have reviewed the medical record and/or the pre-anesthesia evaluation, pertinent labs, and test results. This contains updated information obtained within 48 hours of Surgery/Procedure. SIGNATURE: Vee Loving MD PATIENT NAME: Lazaro Garzon DATE: July 19, 2023 TIME: 8:11 AM CSN: [id number] [facility] HISTORY PHYSICALon HISTORY PHYSICAL HNO ID: [id number] Author: ROBBY BALES MD Service: General Surgery Author Type: Physician Type: H&P Filed: 07/19/2023 08:31 Note Text: HISTORY AND PHYSICAL Lazaro Garzon 1955 REFERRING PHYSICIAN: Jagjit Cheema MD CHIEF COMPLAINT: Consult (Umbilical hernia.) HPI: [...] by me today at the request of Dr. Jagjit Cheema MD for my opinion and advice regarding Umbilical hernia without obstruction or gangrene. PAST MEDICAL HISTORY PAST MEDICAL HISTORY Diagnosis Date Abdominal pain, [...] Recurrent pneumonia 14 times PAST SURGICAL HISTORY PAST SURGICAL HISTORY Procedure Laterality Date ADENOIDECTOMY [...] Right 1988 LAPS SURG CHOLECYSTECTOMY W/CHOLANGIOGRAPHY 2004 [facility] - Dr. Bales OPEN REPAIR OF ROTATOR CUFF ACUTE Rotator cuff repair PERCUTANEOUS CORONARY INTERVENTION 2007 stent to LAD TONSILLECTOMY PRIMARY/SECONDARY Tonsillectomy CURRENT MEDICATIONS Current Outpatient Medications Medication Sig gabapentin (NEURONTIN) [...] visit. ALLERGIES: Sulfa (Sulfonamide Antibiotics) PERSONAL HISTORY: SOCIAL HISTORY Social History Tobacco Use Smoking status: Former [...] since 20 y/o FAMILY HISTORY: FAMILY HISTORY FAMILY HISTORY Problem Relation Age of Onset Hypertension Mother Heart Mother Stroke Mother Allergies Mother Breast Cancer Mother Heart Father of [place] Allergies Father Asthma Daughter Allergies Sister Allergies Brother Allergies Daughter REVIEW OF SYMPTOMS: The review of systems data was entered by the nurse and reviewed by or Nursing Notes: (more content not included)... [facility] OPERATIVE NOon 07-19-2023 OPERATIVE NO HNO ID: [id number] Author: ROBBY BALES MD Service: General Surgery Author Type: Physician Type: Operative Report Filed: 07/19/2023 10:07 Note Text: OPERATIVE/PROCEDURE REPORT LOG ID: [id number] SURGERY/PROCEDURE DATE: 07/19/2023 INCISION/PROCEDURE START TIME: 9:18 AM INCISION CLOSE/PROCEDURE END TIME: 9:55 AM SURGEON(S)/PROCEDURALIST(S) AND UTILITY SALES REPRESENTATIVE(S): Surgeon(s) and Role: * Robby Bales MD - Primary Physician Assistant Offset Press Operator: Anna Mccoy PA-C SURGERY/PROCEDURE(S): Umbilical hernia repair with mesh ANESTHESIA: General SURGERY/PROCEDURE DETAILS: Patient was brought to the operating room. Placed in the supine position. Under excellent general anesthetic the abdomen was sterilely prepped draped in usual fashion. Local was injected infraumbilically. Dissection was carried down to the fascia. I dissected the hernia sac off of the umbilical skin. I placed it back into its preperitoneal sac. This defect was approximately 3-1/2 cm in diameter. I created a preperitoneal window with use of electrocautery as well as blunt dissection with a 4 x 4 once I had a good preperitoneal window I fashioned a 6 x 6 cm Parietex mesh into the wound. I circumferentially tacked it to the fascia using 0 Nurolon. I injected Exparel rel into the fascia. I brought the umbilical skin back down to the fascia with a 2-0 Vicryl. Deep dermal stitches of 3-0 Vicryl running 4-0 Monocryl. Steri-Strips were applied sterile dressings were applied and the patient tolerated the procedure well. Anna Mccoy PA-C was my event marketing assistant. She assisted with retraction, visualization and performed skin closure. No additional surgeons or qualified residents were available. PRE-OP/PRE-PROCEDURE DIAGNOSIS: Umbilical hernia POST-OP/POST-PROCEDURE DIAGNOSIS: Same as Preop ESTIMATED BLOOD LOSS: < 25 mls SPECIMENS: None IMPLANTABLE DEVICES: Implant Name Type Inv. Item Serial No. Humanities Professor Lot No. LRB No. Used Action MESH PARIETEX 6.6CM SMALL COLLAGEN SURGICAL PATCH SELF CENTER COMPOSITE - [id number] Mesh MESH PARIETEX 6.6CM SMALL COLLAGEN SURGICAL PATCH SELF CENTER COMPOSITE [employer] [id number] N/A 1 Implanted DRAINS: None COMPLICATIONS: None CLOSURE TECHNIQUE: Primary PARTICIPATION IN SURGERY/PROCEDURE: I/primary surgeon/proceduralist performed the procedure with assistance. SIGNATURE: Robby Bales III, MD PATIENT NAME: Lazaro Garzon DATE: July 19, 2023 TIME: 9:48 AM [facility] Absolute lymphocyte countOrd ered By: Flores Glover on 07-13-2023 Lymphocytes Auto (Unsp spec) [#/Vol] 0.84 10*3/uL 0.83-4.51 [facility] Automated lymphocyte count a s percentage of total leukocytesOrdered By: Flores Adalberto on 07-13-2023 Lymphocytes/100 WBC Auto (Unsp spec) 23.8 % 19-41 [facility] Basophil percentageOrdered B y: Flores Adalberto on 07-13-2023 Basophils/100 WBC (Bld) 0.6 % 0-1 [facility] Eosinophils/100 WBC (Bld) 1.7 % 0-5 [facility] Hemoglobin (Bld) [Mass/Vol] 15.5 g/dL 13.0-16.5 [facility] Monocytes/100 WBC (Bld) 11.0 % 0-10 [facility] Neutrophils (Bld) [#/Vol] 2.2 10*3/uL 2.0-7.7 [facility] Neutrophils/100 WBC (Bld) 62.9 % 47-70 [facility] WBC (Bld) [#/Vol] 3.5 10*3/uL 4.4-11.0 [facility] Bilirubin [Mass/Vol] 1.10 mg/dL 0.20-1.00 [facility] Comment on above: For patients on eltr ombopag therapy, use of Dimension [place] TBIL is not recommended. Chloride [Moles/Vol] 108 mmol/L 98-107 [facility] Cholesterol [Mass/Vol] 77 mg/dL <200 [facility] Comment on above: <200 mg/dL Desirable 200-240 mg/dL Borderline >240 mg/dL High Risk Glucose [Mass/Vol] 116 mg/dL 74-106 [facility] Comment on above: Fasting Glucose resu lt from 100 to 125 mg/dL suggests IMPAIRED HOMEOSTASIS per A.D.A. criteria. Potassium [Moles/Vol] 4.0 mmol/L 3.5-5.1 [facility] Protein [Mass/Vol] 7.9 g/dL 6.4-8.2 [facility] Sodium [Moles/Vol] 137 mmol/L 136-145 [facility] Triglyceride [Mass/Vol] 90 mg/dL <199 [facility] Comment on above: The drugs N-Acetylcy steine and Metamizole may falsely depress this assay.Serum Triglycerides Reference Interval Normal <150 mg/dL Borderline high 150 - 199 mg/dL High 200 - 499 mg/dL Very High > or = 500 mg/dL Determination of erythrocyte mean corpuscular volume (MCV)Ordered By: Flores Glover on 07-13-2023 MCV (RBC) [Entitic vol] 86.6 fL 80-94 [facility] Direct bilirubinOrdered By: Floresduncan Glover on 07-13-2023 Bilirubin.direct [Mass/Vol] 0.33 mg/dL 0.00-0.30 [facility] Erythrocyte distribution wid th ratioOrdered By: Flores Adalberto on 07-13-2023 Erythrocyte distribution width (RBC) [Ratio] 13.0 % 11.6-14.6 [facility] Erythrocyte distribution wid th standard deviationOrdered By: Flores Adalberto on 07-13-2023 Erythrocyte distribution width (RBC) [Entitic vol] 40.1 fL 35.1-43.9 [facility] Hematocrit Auto (Bld) [Volum e fraction]Ordered By: Flores Glover on 07-13-2023 Hematocrit (Bld) [Volume fraction] 46.0 % 40-54 [facility] High density lipoprotein (HD L) measurementOrdered By: Floresduncan Glover on 07-13-2023 Cholesterol in HDL (Body fld) [Mass/Vol] 30 mg/dL >40 [facility] Comment on above: The drugs N-Acetylcy steine and Metamizole may falsely depress this assay. Reference Range HDL <40 mg/dL Low HDL Cholesterol HDL >or= 60 mg/dL High HDL Cholesterol Immature granulocytes/100 WB C Auto (Bld)Ordered By: Flores Glover on 07-13-2023 Immature granulocytes/100 WBC (Bld) 0.000 % 0.0-0.9 [facility] Comment on above: IG% - Immature Granu locytes (promyelocytes, myelocytes and metamyelocytes) > 1% indicates that a LEFT SHIFT is Present. Laboratory - Chemistry and C hemistry - challengeOrdered By: Floresduncan Glover on 07-13-2023 Albumin/Globulin [Mass ratio] 1.2 {ratio} 0.9-2.4 [facility] ALP [Catalytic activity/Vol] 76 U/L 45-117 [facility] ALT [Catalytic activity/Vol] 59 U/L 16-61 [facility] CO2 [Moles/Vol] 28.0 mmol/L 21.0-32.0 [facility] Globulin (S) [Mass/Vol] 3.6 g/dL 2.2-4.2 [facility] Urea nitrogen/Creatinine [Mass ratio] 15.3 mg/mg 10-20 [facility] Laboratory - Hematology and Cell countsOrdered By: Flores Glover on 07-13-2023 MCH (RBC) [Entitic mass] 29.2 pg 27.0-32.0 [facility] MCHC (RBC) [Mass/Vol] 33.7 g/dL 32-36 [facility] Nucleated RBC/100 WBC (Bld) [Ratio] 0 % 0-5 [facility] Platelets (Bld) [#/Vol] 164 10*3/uL 150-450 [facility] Low density lipoprotein (LDL ) cholesterol measurementOrdered By: Flores Glover on 07-13-2023 Cholesterol in LDL (Body fld) [Moles/Vol] 29 mg/dL 0-130 [facility] No Panel InformationOrdered By: Flores Glover on 07-13-2023 Estimated GFR (MDRD) Amer 80 mL/min >60 [facility] Comment on above: GFR Calc Estimated GFR (MDRD) Non-Af Amer 66 mL/min >60 [facility] Comment on above: Non- GFR Calc Platelet mean volume Stephen-Ec ker (Bld) [Entitic vol]Ordered By: Flores Glover on 07-13-2023 Platelet mean volume (Bld) [Entitic vol] 10.8 fL 6.2-12.0 [facility] RBC Auto (Bld) [#/Vol]Ordere d By: Flores Glover on 07-13-2023 RBC (Bld) [#/Vol] 5.31 10*6/uL 4.6-6.2 [facility] Serum or plasma calcium peterson urement (mass/volume)Ordered By: Flores Glover on 07-13-2023 Calcium [Mass/Vol] 9.5 mg/dL 8.5-10.1 [facility] Serum or plasma creatinine m easurement (mass/volume)Ordered By: Flores Glover on 07-13-2023 Creatinine [Mass/Vol] 1.18 mg/dL 0.70-1.30 [facility] Comment on above: The validity of the calculated GFR & GFRAA in patients over 70 years has not been determined. Clinical correlation is essential. Serum or plasma urea nitroge n measurement (mass/volume)Ordered By: Flores Glover on 07-13-2023 Urea nitrogen [Mass/Vol] 18 mg/dL 7-18 [facility] Thin prep Papanicolaou smear with manual screeningOrdered By: Flores Glover on 07-13-2023 Thin prep Papanicolaou smear with manual screening 4.3 g/dL 3.2-5.0 [facility] Thin prep Papanicolaou smear with manual screening 32 U/L 15-37 [facility] Thin prep Papanicolaou smear with manual screening 1 5-15 [facility] Very low density lipoprotein (VLDL) cholesterol measurementOrdered By: Flores Glover on 07-13-2023 Cholesterol in VLDL Calc [Moles/Vol] 18 mg/dL 5-40 [facility] Basophil percentageOrdered B y: Gamal Ramos on 04-25-2023 Testosterone [Mass/Vol] 366.38 ng/dL [facility] Comment on above: CENTRAL 90% REFERENC E RANGES MALE AGE <50 197.44 - 669.58 ng/dL MALE AGE > or = 50 187.72 - 684.19 ng/dL FEMALE AGE <50 8.38 - 35.01 ng/dL FEMALE AGE > or = 50 <7.00 - 35.92 ng/dL Effective as of 01/12/21 No Panel InformationOrdered By: Gamal Ramos on 04-25-2023 Prostate Specific Antigen Screen 3.94 ng/mL 0.00-4.00 [facility] Comment on above: This test was perfor med using the TPSA assay method for the[employer] chemistry system. Values obtained with differentassay methods cannot be used interchangably.When changing PSA assays in the course of monitoring apatient, additional sequential testing should be carriedout to confirm baseline values. XR Foot - left AP and Latera l and obliqueon 04-03-2023 IMPRESSION: No radiographic evidence of acute osseous injury Mobile Pet Groomer: [facility] Transcribe Date/Time: Apr 03 2023 11:18A Dictated by : JERE DUNHAM MD This examination was interpreted and the report reviewed and electronically signed by: JERE DUNHAM MD on Apr 03 2023 11:19AM [facility] DIVISION OF RADIOLOGY * * *Final Report* * * DATE OF EXAM: Apr 03 2023 11:13AM WOX [id number] - XR FOOT 3V AP/LAT/OBL LT / PROCEDURE REASON: Pain of left heel * * * * Physician Interpretation * * * * TITLE: XR FOOT 3V AP/LAT/OBL LT CLINICAL INDICATION: Heel pain TECHNIQUE: 3 view radiographic study of the left foot COMPARISON: None FINDINGS: No acute fracture or dislocation identified. Scattered joint space narrowing of the interphalangeal joints. DIVISION OF RADIOLOGY Provider, [facility] - 04/03/2023 * * *Final Report* * * DATE OF EXAM: Apr 03 2023 11:13AM WOX [id number] - XR FOOT 3V AP/LAT/OBL LT / PROCEDURE REASON: Pain of left heel * * * * Physician Interpretation * * * * TITLE: XR FOOT 3V AP/LAT/OBL LT CLINICAL INDICATION: Heel pain TECHNIQUE: 3 view radiographic study of the left foot COMPARISON: None FINDINGS: No acute fracture or dislocation identified. Scattered joint space narrowing of the interphalangeal joints. IMPRESSION IMPRESSION: No radiographic evidence of acute osseous injury Mobile Pet Groomer: [facility] Transcribe Date/Time: Apr 03 2023 11:18A Dictated by : JERE DUNHAM MD This examination was interpreted and the report reviewed and electronically signed by: JERE DUNHAM MD on Apr 03 2023 11:19AM EST [facility] Radiology Study observation (narrative) [facility] XR Foot - left AP and Latera l and obliqueOrdered By: [facility] Provider on 04-03-2023 [facility] CBC W Auto Differential pane l (Bld)on 12-20-2022 Basophils (Bld) [#/Vol] 0.03 10*3/uL <0.11 k/uL [facility] Basophils/100 WBC (Bld) 0.6 % [facility] Differential cell count method Nom (Bld) Auto [facility] Eosinophils (Bld) [#/Vol] 0.10 10*3/uL <0.46 k/uL [facility] Eosinophils/100 WBC (Bld) 1.9 % [facility] Erythrocyte distribution width (RBC) [Ratio] 13.0 % 11.5 - 15.0 % [facility] Hematocrit (Bld) [Volume fraction] 40.3 % 39.0 - 51.0 % [facility] Hemoglobin (Bld) [Mass/Vol] 13.4 g/dL 13.0 - 17.0 g/dL [facility] Immature granulocytes (Bld) [#/Vol] <0.10 k/uL [facility] Immature granulocytes/100 WBC (Bld) 0.4 % [facility] Lymphocytes (Bld) [#/Vol] 1.01 10*3/uL 1.00 - 4.00 k/uL [facility] Lymphocytes/100 WBC (Bld) 19.6 % [facility] MCH (RBC) [Entitic mass] 29.6 pg 26.0 - 34.0 pg [facility] MCHC (RBC) [Mass/Vol] 33.3 g/dL 30.5 - 36.0 g/dL [facility] MCV (RBC) [Entitic vol] 89.2 fL 80.0 - 100.0 fL [facility] Monocytes (Bld) [#/Vol] 0.45 10*3/uL <0.87 k/uL [facility] Monocytes/100 WBC (Bld) 8.8 % [facility] Neutrophils (Bld) [#/Vol] 3.53 10*3/uL 1.45 - 7.50 k/uL [facility] Neutrophils/100 WBC (Bld) 68.7 % [facility] Nucleated RBC (Bld) [#/Vol] <0.01 k/uL [facility] Nucleated RBC/100 WBC (Bld) [Ratio] 0.0 /100 WBC [facility] Platelet mean volume (Bld) [Entitic vol] 12.2 fL 9.0 - 12.7 fL [facility] Platelets (Bld) [#/Vol] 156 10*3/uL 150 - 400 k/uL [facility] RBC (Bld) [#/Vol] 4.52 10*6/uL 4.20 - 6.00 m/uL [facility] WBC (Bld) [#/Vol] 5.14 10*3/uL 3.70 - 11.00 k/uL [facility] Absolute lymphocyte countOrd ered By: Lucy Partida on 12-16-2022 Lymphocytes Auto (Unsp spec) [#/Vol] 0.25 10*3/uL 0.83-4.51 [facility] Acetaminophen level (mass/vo lume)Ordered By: Lucy Helga on 12-16-2022 Acetaminophen (Unsp spec) [Mass/Vol] 2.3 ug/mL 10.0-30.0 [facility] Basophil percentageOrdered B y: Lucy Partida on 12-16-2022 Basophils/100 WBC (Bld) 0.2 % 0-1 [facility] Bilirubin [Mass/Vol] 1.20 mg/dL 0.20-1.00 [facility] Comment on above: For patients on eltr ombopag therapy, use of Dimension [place] TBIL is not recommended. Chloride [Moles/Vol] 108 mmol/L 98-107 [facility] Eosinophils/100 WBC (Bld) 0.2 % 0-5 [facility] Glucose [Mass/Vol] 130 mg/dL 74-106 [facility] Comment on above: Fasting Glucose resu lt greater than or equal to 126 mg/dL suggests DIABETES MELLITUS per A.D.A. criteria. Neutrophils (Bld) [#/Vol] 3.5 10*3/uL 2.0-7.7 [facility] Neutrophils/100 WBC (Bld) 82.1 % 47-70 [facility] Potassium [Moles/Vol] 3.3 mmol/L 3.5-5.1 [facility] Protein [Mass/Vol] 6.1 g/dL 6.4-8.2 [facility] Sodium [Moles/Vol] 137 mmol/L 136-145 [facility] WBC (Bld) [#/Vol] 4.2 10*3/uL 4.4-11.0 [facility] Blood erythrocytes count (nu mber/volume)Ordered By: Lucy Partida on 12-16-2022 RBC (Bld) [#/Vol] 4.29 10*6/uL 4.6-6.2 [facility] Blood hemoglobin measurement (mass/volume)Ordered By: Lucy Partida on 12-16-2022 Hemoglobin (Bld) [Mass/Vol] 13.1 g/dL 13.0-16.5 [facility] Blood lymphocytes/100 leukoc ytesOrdered By: Lucy Partida on 12-16-2022 Lymphocytes/100 WBC (Bld) 5.9 % 19-41 [facility] Blood manual differential co mment interpretation (narrative result)Ordered By: Lucy Partida on 12-16-2022 Manual differential comment Ildefonso (Bld) [Interp] SCANNED [facility] Comment on above: LYMPHOPENIA Blood monocytes/100 leukocyt esOrdered By: Lucy Partida on 12-16-2022 Monocytes/100 WBC (Bld) 11.1 % 0-10 [facility] Blood platelet adequacy dete ction by light microscopyOrdered By: Lucy Partida on 12-16-2022 Platelets LM Ql (Bld) SLT DEC ADEQ [facility] Blood platelet mean volumeOr dered By: Lucy Partida on 12-16-2022 Platelet mean volume (Bld) [Entitic vol] 11.5 fL 6.2-12.0 [facility] [facility] Determination of erythrocyte mean corpuscular volume (MCV)Ordered By: Lucy Partida on 12-16-2022 MCV (RBC) [Entitic vol] 88.3 fL 80-94 [facility] Hematocrit Auto (Bld) [Volum e fraction]Ordered By: Lucy Partida on 12-16-2022 Hematocrit (Bld) [Volume fraction] 37.9 % 40-54 [facility] Laboratory - Chemistry and C hemistry - challengeOrdered By: Lucy Partida on 12-16-2022 ALP [Catalytic activity/Vol] 59 U/L 45-117 [facility] ALT [Catalytic activity/Vol] 41 U/L 16-61 [facility] CO2 [Moles/Vol] 22.0 mmol/L 21.0-32.0 [facility] Globulin (S) [Mass/Vol] 3.3 g/dL 2.2-4.2 [facility] Urea nitrogen/Creatinine [Mass ratio] 12.7 mg/mg 10-20 [facility] Laboratory - Hematology and Cell countsOrdered By: Lucy Partida on 12-16-2022 Erythrocyte distribution width (RBC) [Entitic vol] 42.5 fL 35.1-43.9 [facility] Erythrocyte distribution width (RBC) [Ratio] 13.2 % 11.6-14.6 [facility] Immature granulocytes/100 WBC (Bld) 0.500 % 0.0-0.9 [facility] Comment on above: IG% - Immature Granu locytes (promyelocytes, myelocytes and metamyelocytes) > 1% indicates that a LEFT SHIFT is Present. MCH (RBC) [Entitic mass] 30.5 pg 27.0-32.0 [facility] Nucleated RBC/100 WBC (Bld) [Ratio] 0 % 0-5 [facility] MCHC Auto (RBC) [Mass/Vol]Or dered By: Lucy Partida on 12-16-2022 MCHC (RBC) [Mass/Vol] 34.6 g/dL 32-36 [facility] No Panel InformationOrdered By: Lucy Partida on 12-16-2022 Estimated Creatinine Clearance Calc 84.38 ml/min [facility] Estimated GFR (MDRD) Amer 86 mL/min >60 [facility] Comment on above: GFR Calc Estimated GFR (MDRD) Non-Af Amer 71 mL/min >60 [facility] Comment on above: Non- GFR Calc Platelets bldOrdered By: Michael Partida on 12-16-2022 Platelets (Bld) [#/Vol] 92 10*3/uL 150-450 [facility] Review by pathologistOrdered By: Lucy Partida on 12-16-2022 Pathologist review Ildefonso (Unsp spec) [Interp] Reviewed [facility] Comment on above: Previous reported re sult: October verona Edited by: RGOOD on 12/16/22:1022Mild Thrombocytopenia.Clinical correlation necessary.Jameson Oden M.D. 12/16/22 AMENDED REPORT 12/16/22 1022 PATH REV previously reported as: October verona Serum or plasma albumin peterson urement (mass/volume)Ordered By: Lucy Partida on 12-16-2022 Albumin [Mass/Vol] 2.8 g/dL 3.2-5.0 [facility] Serum or plasma albumin/glob ulin mass ratioOrdered By: Lucy Partida on 12-16-2022 Albumin/Globulin [Mass ratio] 0.8 {ratio} 0.9-2.4 [facility] Serum or plasma calcium peterson urement (mass/volume)Ordered By: Lucy Partida on 12-16-2022 Calcium [Mass/Vol] 7.8 mg/dL 8.5-10.1 [facility] Serum or plasma creatinine m easurement (mass/volume)Ordered By: Lucy Partida on 12-16-2022 Creatinine [Mass/Vol] 1.10 mg/dL 0.70-1.30 [facility] Comment on above: The validity of the calculated GFR & GFRAA in patients over 70 years has not been determined. Clinical correlation is essential. Serum or plasma urea nitroge n measurement (mass/volume)Ordered By: Lucy Partida on 12-16-2022 Urea nitrogen [Mass/Vol] 14 mg/dL 7-18 [facility] Thin prep Papanicolaou smear with manual screeningOrdered By: Lucy Partida on 12-16-2022 Thin prep Papanicolaou smear with manual screening 34 U/L 15-37 [facility] Thin prep Papanicolaou smear with manual screening 7 5-15 [facility] Absolute lymphocyte countOrd ered By: Nahum Dias on 12-15-2022 Lymphocytes Auto (Unsp spec) [#/Vol] 0.19 10*3/uL 0.83-4.51 [facility] Basophil percentageOrdered B y: Nahum Dias on 12-15-2022 Basophils/100 WBC (Bld) 0.2 % 0-1 [facility] Bilirubin [Mass/Vol] 1.40 mg/dL 0.20-1.00 [facility] Comment on above: For patients on eltr ombopag therapy, use of Dimension [place] TBIL is not recommended. Chloride [Moles/Vol] 105 mmol/L 98-107 [facility] Eosinophils/100 WBC (Bld) 0.7 % 0-5 [facility] Glucose [Mass/Vol] 131 mg/dL 74-106 [facility] Comment on above: Fasting Glucose resu lt greater than or equal to 126 mg/dL suggests DIABETES MELLITUS per A.D.A. criteria. Lactate [Moles/Vol] 1.7 mmol/L 0.4-2.0 [facility] Neutrophils (Bld) [#/Vol] 3.9 10*3/uL 2.0-7.7 [facility] Neutrophils/100 WBC (Bld) 90.2 % 47-70 [facility] Potassium [Moles/Vol] 3.3 mmol/L 3.5-5.1 [facility] Protein [Mass/Vol] 7.4 g/dL 6.4-8.2 [facility] Sodium [Moles/Vol] 135 mmol/L 136-145 [facility] WBC (Bld) [#/Vol] 4.3 10*3/uL 4.4-11.0 [facility] Blood erythrocytes count (nu mber/volume)Ordered By: Nahum Dias on 12-15-2022 RBC (Bld) [#/Vol] 4.61 10*6/uL 4.6-6.2 [facility] Blood hemoglobin measurement (mass/volume)Ordered By: Nahum Dias on 12-15-2022 Hemoglobin (Bld) [Mass/Vol] 14.4 g/dL 13.0-16.5 [facility] Blood lymphocytes/100 leukoc ytesOrdered By: Nahum Dias on 12-15-2022 Lymphocytes/100 WBC (Bld) 4.4 % 19-41 [facility] Blood manual differential co mment interpretation (narrative result)Ordered By: Nahum Dias on 12-15-2022 Manual differential comment Ildefonso (Bld) [Interp] SCANNED [facility] Comment on above: LYMPHOPENIA NOTEDTHR OMBOCYTOPENIA NOTED Blood monocytes/100 leukocyt esOrdered By: Nahum Dias on 12-15-2022 Monocytes/100 WBC (Bld) 4.0 % 0-10 [facility] Blood platelet mean volumeOr dered By: Nahum Dias on 12-15-2022 Platelet mean volume (Bld) [Entitic vol] 11.6 fL 6.2-12.0 [facility] Determination of erythrocyte mean corpuscular volume (MCV)Ordered By: Nahum Dias on 12-15-2022 MCV (RBC) [Entitic vol] 89.2 fL 80-94 [facility] Hematocrit Auto (Bld) [Volum e fraction]Ordered By: Nahum Dias on 12-15-2022 Hematocrit (Bld) [Volume fraction] 41.1 % 40-54 [facility] INR in Blood by Coagulation assayOrdered By: Nahum Dias on 12-15-2022 INR Coag (Bld) [Relative time] 1.2 {INR} [facility] Laboratory - Chemistry and C hemistry - challengeOrdered By: Nahum Dias on 12-15-2022 ALP [Catalytic activity/Vol] 77 U/L 45-117 [facility] ALT [Catalytic activity/Vol] 47 U/L 16-61 [facility] CO2 [Moles/Vol] 21.0 mmol/L 21.0-32.0 [facility] Globulin (S) [Mass/Vol] 3.9 g/dL 2.2-4.2 [facility] Urea nitrogen/Creatinine [Mass ratio] 12.5 mg/mg 10-20 [facility] Laboratory - Chemistry and C hemistry - challengeOrdered By: Lucy White on 12-15-2022 Magnesium [Mass/Vol] 1.8 mg/dL 1.6-2.6 [facility] Laboratory - CoagulationOrde red By: Nahum Dias on 12-15-2022 aPTT Coag (Bld) [Time] 32.2 s 24.1-36.2 [facility] PT Coag (PPP) [Time] 14.9 s 11.7-14.9 [facility] Laboratory - Hematology and Cell countsOrdered By: Nahum Dias on 12-15-2022 Erythrocyte distribution width (RBC) [Entitic vol] 43.3 fL 35.1-43.9 [facility] Erythrocyte distribution width (RBC) [Ratio] 13.2 % 11.6-14.6 [facility] Immature granulocytes/100 WBC (Bld) 0.500 % 0.0-0.9 [facility] Comment on above: IG% - Immature Granu locytes (promyelocytes, myelocytes and metamyelocytes) > 1% indicates that a LEFT SHIFT is Present. MCH (RBC) [Entitic mass] 31.2 pg 27.0-32.0 [facility] Nucleated RBC/100 WBC (Bld) [Ratio] 0 % 0-5 [facility] [Mass/Vol]Or dered By: Nahum Dias on 12-15-2022 MCHC (RBC) [Mass/Vol] 35.0 g/dL 32-36 [facility] No Panel InformationOrdered By: Nahum Dias on 12-15-2022 Estimated Creatinine Clearance Calc 68.24 ml/min [facility] Estimated GFR (MDRD) Amer 68 mL/min >60 [facility] Comment on above: GFR Calc Estimated GFR (MDRD) Non-Af Amer 56 mL/min >60 [facility] Comment on above: Non- GFR Calc Platelets bldOrdered By: Olivia Dias on 12-15-2022 Platelets (Bld) [#/Vol] 87 10*3/uL 150-450 [facility] Respiratory pathogens detect ion panel by molecular detection methodOrdered By: Lucy Partida on 12-15-2022 Respiratory pathogens DNA and RNA panel ASHLEY+probe (Resp) [facility] Serum or plasma albumin peterson urement (mass/volume)Ordered By: Nahum Dias on 12-15-2022 Albumin [Mass/Vol] 3.5 g/dL 3.2-5.0 [facility] Serum or plasma albumin/glob ulin mass ratioOrdered By: Nahum Dias on 12-15-2022 Albumin/Globulin [Mass ratio] 0.9 {ratio} 0.9-2.4 [facility] Serum or plasma calcium peterson urement (mass/volume)Ordered By: Nahum Dias on 12-15-2022 Calcium [Mass/Vol] 8.6 mg/dL 8.5-10.1 [facility] Serum or plasma creatinine m easurement (mass/volume)Ordered By: Nahum Dias on 12-15-2022 Creatinine [Mass/Vol] 1.36 mg/dL 0.70-1.30 [facility] Comment on above: The validity of the calculated GFR & GFRAA in patients over 70 years has not been determined. Clinical correlation is essential. Serum or plasma urea nitroge n measurement (mass/volume)Ordered By: Nahum Dias on 12-15-2022 Urea nitrogen [Mass/Vol] 17 mg/dL 7-18 [facility] Thin prep Papanicolaou smear with manual screeningOrdered By: Nahumjaron Dias on 12-15-2022 Thin prep Papanicolaou smear with manual screening 36 U/L 15-37 [facility] Thin prep Papanicolaou smear with manual screening 9 5-15 [facility] Absolute lymphocyte countOrd ered By: Vee Horton on 12-14-2022 Lymphocytes Auto (Unsp spec) [#/Vol] 1.07 10*3/uL 0.83-4.51 [facility] Basophil percentageOrdered B y: Vee Horton on 12-14-2022 Basophil percentage >100 SEEN /hpf 0-5 [facility] Lactate [Moles/Vol] 1.4 mmol/L 0.4-2.0 [facility] Basophils/100 WBC (Bld) 0.2 % 0-1 [facility] Bilirubin [Mass/Vol] 2.30 mg/dL 0.20-1.00 [facility] Comment on above: For patients on eltr ombopag therapy, use of Dimension [place] TBIL is not recommended. Chloride [Moles/Vol] 105 mmol/L 98-107 [facility] Eosinophils/100 WBC (Bld) 0.1 % 0-5 [facility] Glucose [Mass/Vol] 100 mg/dL 74-106 [facility] Comment on above: Fasting Glucose resu lt from 100 to 125 mg/dL suggests IMPAIRED HOMEOSTASIS per A.D.A. criteria. Neutrophils (Bld) [#/Vol] 13.5 10*3/uL 2.0-7.7 [facility] Neutrophils/100 WBC (Bld) 85.4 % 47-70 [facility] Potassium [Moles/Vol] 3.0 mmol/L 3.5-5.1 [facility] Protein [Mass/Vol] 7.1 g/dL 6.4-8.2 [facility] Sodium [Moles/Vol] 138 mmol/L 136-145 [facility] WBC (Bld) [#/Vol] 15.8 10*3/uL 4.4-11.0 [facility] Bilirubin Test strip Ql (U)O rdered By: Vee Horton on 12-14-2022 Bilirubin Ql (U) 3 mg/dL Negative [facility] Comment on above: COLOR OF URINE MAY A FFECT DIPSTICK RESULTS. Blood erythrocytes count (nu mber/volume)Ordered By: Vee Horton on 12-14-2022 RBC (Bld) [#/Vol] 5.18 10*6/uL 4.6-6.2 [facility] Blood hemoglobin measurement (mass/volume)Ordered By: Vee Horton on 12-14-2022 Hemoglobin (Bld) [Mass/Vol] 15.7 g/dL 13.0-16.5 [facility] Blood lymphocytes/100 leukoc ytesOrdered By: Vee Horton on 12-14-2022 Lymphocytes/100 WBC (Bld) 6.8 % 19-41 [facility] Blood monocytes/100 leukocyt esOrdered By: Vee Horton on 12-14-2022 Monocytes/100 WBC (Bld) 6.9 % 0-10 [facility] Blood platelet mean volumeOr dered By: Vee Horton on 12-14-2022 Platelet mean volume (Bld) [Entitic vol] 11.9 fL 6.2-12.0 [facility] Culture, urineOrdered By: Matt Horton on 12-14-2022 Bacteria identified Cx Nom (U) Escherichia coli [facility] Determination of erythrocyte mean corpuscular volume (MCV)Ordered By: Vee Horton on 12-14-2022 MCV (RBC) [Entitic vol] 90.2 fL 80-94 [facility] Hematocrit Auto (Bld) [Volum e fraction]Ordered By: Vee Horton on 12-14-2022 Hematocrit (Bld) [Volume fraction] 46.7 % 40-54 [facility] INR in Blood by Coagulation assayOrdered By: Vee Horton on 12-14-2022 INR Coag (Bld) [Relative time] 1.1 {INR} [facility] Ketones Test strip Ql (U)Ord ered By: Vee Horton on 12-14-2022 Ketones Ql (U) 15 mg/dl Negative [facility] Laboratory - Chemistry and C hemistry - challengeOrdered By: Vee Horton on 12-14-2022 ALP [Catalytic activity/Vol] 79 U/L 45-117 [facility] ALT [Catalytic activity/Vol] 25 U/L 16-61 [facility] CO2 [Moles/Vol] 28.0 mmol/L 21.0-32.0 [facility] Globulin (S) [Mass/Vol] 3.6 g/dL 2.2-4.2 [facility] Urea nitrogen/Creatinine [Mass ratio] 11.1 mg/mg 10-20 [facility] Laboratory - CoagulationOrde red By: Vee Horton on 12-14-2022 aPTT Coag (Bld) [Time] 34.2 s 24.1-36.2 [facility] PT Coag (PPP) [Time] 14.5 s 11.7-14.9 [facility] Laboratory - Hematology and Cell countsOrdered By: Vee Horton on 12-14-2022 Erythrocyte distribution width (RBC) [Entitic vol] 43.7 fL 35.1-43.9 [facility] Erythrocyte distribution width (RBC) [Ratio] 13.3 % 11.6-14.6 [facility] Immature granulocytes/100 WBC (Bld) 0.600 % 0.0-0.9 [facility] Comment on above: IG% - Immature Granu locytes (promyelocytes, myelocytes and metamyelocytes) > 1% indicates that a LEFT SHIFT is Present. MCH (RBC) [Entitic mass] 30.3 pg 27.0-32.0 [facility] Nucleated RBC/100 WBC (Bld) [Ratio] 0 % 0-5 [facility] MCHC Auto (RBC) [Mass/Vol]Or dered By: Vee Horton on 12-14-2022 MCHC (RBC) [Mass/Vol] 33.6 g/dL 32-36 [facility] Mucus LM Ql (Urine sed)Order ed By: Vee Horton on 12-14-2022 Mucus Ql (Urine sed) 0 SEEN /hpf [facility] Nitrite Test strip Ql (U)Ord ered By: Vee Horton on 12-14-2022 Nitrite Ql (U) Positive Negative [facility] No Panel InformationOrdered By: Vee Horton on 12-14-2022 Urine Transitional Epithelial Cells 0-5 SEEN /hpf 0-5 [facility] Estimated Creatinine Clearance Calc 68.75 ml/min [facility] Estimated GFR (MDRD) Amer 68 mL/min >60 [facility] Comment on above: GFR Calc Estimated GFR (MDRD) Non-Af Amer 56 mL/min >60 [facility] Comment on above: Non- GFR Calc Platelets bldOrdered By: Funmi Horton on 12-14-2022 Platelets (Bld) [#/Vol] 138 10*3/uL 150-450 [facility] Protein Test strip Ql (U)Ord ered By: Vee Horton on 12-14-2022 Protein Ql (U) 100 mg/dl Negative [facility] Serum or plasma albumin peterson urement (mass/volume)Ordered By: Vee Horton on 12-14-2022 Albumin [Mass/Vol] 3.5 g/dL 3.2-5.0 [facility] Serum or plasma albumin/glob ulin mass ratioOrdered By: Vee Horton on 12-14-2022 Albumin/Globulin [Mass ratio] 1.0 {ratio} 0.9-2.4 [facility] Serum or plasma calcium peterson urement (mass/volume)Ordered By: Vee Horton on 12-14-2022 Calcium [Mass/Vol] 8.8 mg/dL 8.5-10.1 [facility] Serum or plasma creatinine m easurement (mass/volume)Ordered By: Vee Horton on 12-14-2022 Creatinine [Mass/Vol] 1.35 mg/dL 0.70-1.30 [facility] Comment on above: The validity of the calculated GFR & GFRAA in patients over 70 years has not been determined. Clinical correlation is essential. Serum or plasma urea nitroge n measurement (mass/volume)Ordered By: Vee Horton on 12-14-2022 Urea nitrogen [Mass/Vol] 15 mg/dL 7-18 [facility] Squamous epithelial cells de tection in urine sediment by light microscopyOrdered By: Vee Horton on 12-14-2022 Epithelial cells.squamous LM Ql (Urine sed) 0-5 SEEN /hpf 0-5 [facility] Thin prep Papanicolaou smear with manual screeningOrdered By: Vee Horton on 12-14-2022 Thin prep Papanicolaou smear with manual screening 10 U/L 15-37 [facility] Thin prep Papanicolaou smear with manual screening 5 5-15 [facility] UA DIP, URINE (POC)on 2022 BILIRUBIN UA (POCT) Small Abnormal Negative [facility] CLARITY UA (POCT) Cloudy [facility] COLOR UA (POCT) [facility] GLUCOSE UA (POCT) Negative Negative mg/dL [facility] HEMOGLOBIN/BLOOD UA (POCT) Large Abnormal Negative [facility] KETONE UA (POCT) Trace Negative mg/dL [facility] LEUKOCYTES UA (POCT) Small Abnormal Negative [facility] NITRITE UA (POCT) Positive Abnormal Negative [facility] PH UA (POCT) 5.5 4.5 - 8.0 [facility] Protein Ql (U) >=300 Abnormal Negative mg/dL [facility] SPECIFIC GRAVITY UA (POCT) >=1.030 1.005 - 1.030 [facility] UROBILINOGEN UA (POCT) 1.0 E.U./dL Normal E.U./dL [facility] Urine blood detectionOrdered By: Vee Horton on 12-14-2022 RBC Ql (U) 250 /ul Negative [facility] RBC Ql (U) 50-100 SEEN /hpf 0-5 [facility] Urine clarityOrdered By: Funmi Horton on 12-14-2022 Clarity (U) Cloudy Clear [facility] Urine color determinationOrd ered By: Vee Horton on 12-14-2022 Color (U) Kath Yellow [facility] Urine glucose detectionOrder ed By: Vee Horton on 12-14-2022 Glucose Ql (U) Normal mg/dl Normal [facility] Urine leukocyte esterase det ection by dipstickOrdered By: Vee Horton on 12-14-2022 Leukocyte esterase Test strip Ql (U) 500 /ul Negative [facility] Urine pHOrdered By: Vee Horton on 12-14-2022 pH (U) 6.0 [pH] 5.0 - 8.0 [facility] Urine sediment bacteria coun t by microscopy (number/high power field)Ordered By: Vee Horton on 12-14-2022 Bacteria LM.HPF (Urine sed) [#/Area] 1 /[HPF] None Seen [facility] Urine specific gravity measu rementOrdered By: Vee Horton on 12-14-2022 Specific gravity (U) [Rel density] 1.020 1.002-1.03 0 [facility] Urobilinogen Auto test strip Ql (U)Ordered By: Vee Horton on 12-14-2022 Urobilinogen Ql (U) 4 mg/dl Normal [facility] Basophil percentageOrdered B y: Aparna Gooden on 08-08-2022 Chloride [Moles/Vol] 105 mmol/L 98-107 [facility] Glucose [Mass/Vol] 131 mg/dL 74-106 [facility] Comment on above: Fasting Glucose resu lt greater than or equal to 126 mg/dL suggests DIABETES MELLITUS per A.D.A. criteria. Potassium [Moles/Vol] 3.9 mmol/L 3.5-5.1 [facility] Sodium [Moles/Vol] 140 mmol/L 136-145 [facility] Laboratory - Chemistry and C hemistry - challengeOrdered By: Aparna Gooden on 08-08-2022 CO2 [Moles/Vol] 31.0 mmol/L 21.0-32.0 [facility] Urea nitrogen/Creatinine [Mass ratio] 13.3 mg/mg 10-20 [facility] No Panel InformationOrdered By: Aparna Gooden on 08-08-2022 Estimated Creatinine Clearance Calc 78.38 ml/min [facility] Estimated GFR (MDRD) Amer 78 mL/min >60 [facility] Comment on above: GFR Calc Estimated GFR (MDRD) Non-Af Amer 65 mL/min >60 [facility] Comment on above: Non- GFR Calc Serum or plasma calcium peterson urement (mass/volume)Ordered By: Aparna Gooden on 08-08-2022 Calcium [Mass/Vol] 9.4 mg/dL 8.5-10.1 [facility] Serum or plasma creatinine m easurement (mass/volume)Ordered By: Aparna Gooden on 08-08-2022 Creatinine [Mass/Vol] 1.20 mg/dL 0.70-1.30 [facility] Comment on above: The validity of the calculated GFR & GFRAA in patients over 70 years has not been determined. Clinical correlation is essential. Serum or plasma urea nitroge n measurement (mass/volume)Ordered By: Aparna Gooden on 08-08-2022 Urea nitrogen [Mass/Vol] 16 mg/dL 7-18 [facility] Thin prep Papanicolaou smear with manual screeningOrdered By: Aparna Gooden on 08-08-2022 Thin prep Papanicolaou smear with manual screening 4 5-15 [facility] Basophil percentageOrdered B y: Dr. Alfred on 06-16-2022 Chloride [Moles/Vol] 109 mmol/L 98-107 [facility] Glucose [Mass/Vol] 103 mg/dL 74-106 [facility] Comment on above: Fasting Glucose resu lt from 100 to 125 mg/dL suggests IMPAIRED HOMEOSTASIS per A.D.A. criteria. Potassium [Moles/Vol] 3.9 mmol/L 3.5-5.1 [facility] Comment on above: Slight Hemolysis, Re sult may be falsely increased. Sodium [Moles/Vol] 142 mmol/L 136-145 [facility] Laboratory - Chemistry and C hemistry - challengeOrdered By: Dr. Alfred on 06-16-2022 CO2 [Moles/Vol] 30.0 mmol/L 21.0-32.0 [facility] Urea nitrogen/Creatinine [Mass ratio] 15.0 mg/mg 10-20 [facility] No Panel InformationOrdered By: Dr. Alfred on 06-16-2022 Estimated GFR (MDRD) Amer 97 mL/min >60 [facility] Comment on above: GFR Calc Estimated GFR (MDRD) Non-Af Amer 80 mL/min >60 [facility] Comment on above: Non- GFR Calc Serum or plasma calcium peterson urement (mass/volume)Ordered By: Dr. Alfred on 06-16-2022 Calcium [Mass/Vol] 8.9 mg/dL 8.5-10.1 [facility] Serum or plasma creatinine m easurement (mass/volume)Ordered By: Dr. Alfred on 06-16-2022 Creatinine [Mass/Vol] 1.00 mg/dL 0.70-1.30 [facility] Comment on above: The validity of the calculated GFR & GFRAA in patients over 70 years has not been determined. Clinical correlation is essential. Serum or plasma urea nitroge n measurement (mass/volume)Ordered By: Dr. Alfred on 06-16-2022 Urea nitrogen [Mass/Vol] 15 mg/dL 7-18 [facility] Thin prep Papanicolaou smear with manual screeningOrdered By: Dr. Alfred on 06-16-2022 Thin prep Papanicolaou smear with manual screening 3 5-15 [facility] Absolute lymphocyte countOrd ered By: Dr. Shi on 05-07-2022 Lymphocytes Auto (Unsp spec) [#/Vol] 1.31 10*3/uL 0.83-4.51 [facility] Basophil percentageOrdered B y: Dr. Shi on 05-07-2022 Basophils/100 WBC (Bld) 0.3 % 0-1 [facility] Chloride [Moles/Vol] 109 mmol/L 98-107 [facility] Eosinophils/100 WBC (Bld) 1.6 % 0-5 [facility] Glucose [Mass/Vol] 101 mg/dL 74-106 [facility] Comment on above: Fasting Glucose resu lt from 100 to 125 mg/dL suggests IMPAIRED HOMEOSTASIS per A.D.A. criteria. Neutrophils (Bld) [#/Vol] 3.9 10*3/uL 2.0-7.7 [facility] Neutrophils/100 WBC (Bld) 66.6 % 47-70 [facility] Potassium [Moles/Vol] 3.7 mmol/L 3.5-5.1 [facility] Sodium [Moles/Vol] 141 mmol/L 136-145 [facility] WBC (Bld) [#/Vol] 5.8 10*3/uL 4.4-11.0 [facility] Blood erythrocytes count (nu mber/volume)Ordered By: Dr. Shi on 05-07-2022 RBC (Bld) [#/Vol] 5.62 10*6/uL 4.6-6.2 [facility] Blood hemoglobin measurement (mass/volume)Ordered By: Dr. Shi on 05-07-2022 Hemoglobin (Bld) [Mass/Vol] 16.1 g/dL 13.0-16.5 [facility] Blood lymphocytes/100 leukoc ytesOrdered By: Dr. Shi on 05-07-2022 Lymphocytes/100 WBC (Bld) 22.6 % 19-41 [facility] Blood monocytes/100 leukocyt esOrdered By: Dr. Shi on 05-07-2022 Monocytes/100 WBC (Bld) 8.6 % 0-10 [facility] Blood platelet mean volumeOr dered By: Dr. Shi on 05-07-2022 Platelet mean volume (Bld) [Entitic vol] 11.5 fL 6.2-12.0 [facility] Determination of erythrocyte mean corpuscular volume (MCV)Ordered By: Dr. Shi on 05-07-2022 MCV (RBC) [Entitic vol] 85.4 fL 80-94 [facility] Hematocrit Auto (Bld) [Volum e fraction]Ordered By: Dr. Shi on 05-07-2022 Hematocrit (Bld) [Volume fraction] 48.0 % 40-54 [facility] Laboratory - Chemistry and C hemistry - challengeOrdered By: Dr. Shi on 05-07-2022 CO2 [Moles/Vol] 29.0 mmol/L 21.0-32.0 [facility] Urea nitrogen/Creatinine [Mass ratio] 10.6 mg/mg 10-20 [facility] Laboratory - Hematology and Cell countsOrdered By: Dr. Shi on 05-07-2022 Erythrocyte distribution width (RBC) [Entitic vol] 42.3 fL 35.1-43.9 [facility] Erythrocyte distribution width (RBC) [Ratio] 13.8 % 11.6-14.6 [facility] Immature granulocytes/100 WBC (Bld) 0.300 % 0.0-0.9 [facility] Comment on above: IG% - Immature Granu locytes (promyelocytes, myelocytes and metamyelocytes) > 1% indicates that a LEFT SHIFT is Present. MCH (RBC) [Entitic mass] 28.6 pg 27.0-32.0 [facility] Nucleated RBC/100 WBC (Bld) [Ratio] 0 % 0-5 [facility] MCHC Auto (RBC) [Mass/Vol]Or dered By: Dr. Shi on 05-07-2022 MCHC (RBC) [Mass/Vol] 33.5 g/dL 32-36 [facility] No Panel InformationOrdered By: Dr. Shi on 05-07-2022 Troponin I High Sensitivity 13 pg/mL 3.0-78.0 [facility] Comment on above: Please Note: New Crissy t Units and Gender Specific Reference Ranges. For more information see Policy Stat Procedure [place] High Sensitivity Troponin (TNIH) and attachments. Estimated Creatinine Clearance Calc 90.43 ml/min [facility] Estimated GFR (MDRD) Amer 92 mL/min >60 [facility] Comment on above: GFR Calc Estimated GFR (MDRD) Non-Af Amer 76 mL/min >60 [facility] Comment on above: Non- GFR Calc Platelets bldOrdered By: Dr. Shi on 05-07-2022 Platelets (Bld) [#/Vol] 156 10*3/uL 150-450 [facility] Serum or plasma calcium peterson urement (mass/volume)Ordered By: Dr. Shi on 05-07-2022 Calcium [Mass/Vol] 8.8 mg/dL 8.5-10.1 [facility] Serum or plasma creatinine m easurement (mass/volume)Ordered By: Dr. Shi on 05-07-2022 Creatinine [Mass/Vol] 1.04 mg/dL 0.70-1.30 [facility] Comment on above: The validity of the calculated GFR & GFRAA in patients over 70 years has not been determined. Clinical correlation is essential. Serum or plasma urea nitroge n measurement (mass/volume)Ordered By: Dr. Shi on 05-07-2022 Urea nitrogen [Mass/Vol] 11 mg/dL 7-18 [facility] Thin prep Papanicolaou smear with manual screeningOrdered By: Dr. Shi on 05-07-2022 Thin prep Papanicolaou smear with manual screening 3 5-15 [facility] Absolute lymphocyte countOrd ered By: Dr. Alfred on 04-29-2022 Lymphocytes Auto (Unsp spec) [#/Vol] 1.25 10*3/uL 0.83-4.51 [facility] Basophil percentageOrdered B y: Dr. Alfred on 04-29-2022 Basophils/100 WBC (Bld) 0.3 % 0-1 [facility] Chloride [Moles/Vol] 107 mmol/L 98-107 [facility] Eosinophils/100 WBC (Bld) 1.2 % 0-5 [facility] Glucose [Mass/Vol] 147 mg/dL 74-106 [facility] Comment on above: Fasting Glucose resu lt greater than or equal to 126 mg/dL suggests DIABETES MELLITUS per A.D.A. criteria. Neutrophils (Bld) [#/Vol] 5.5 10*3/uL 2.0-7.7 [facility] Neutrophils/100 WBC (Bld) 74.4 % 47-70 [facility] Potassium [Moles/Vol] 3.7 mmol/L 3.5-5.1 [facility] Sodium [Moles/Vol] 141 mmol/L 136-145 [facility] WBC (Bld) [#/Vol] 7.4 10*3/uL 4.4-11.0 [facility] Blood erythrocytes count (nu mber/volume)Ordered By: Dr. Alfred on 04-29-2022 RBC (Bld) [#/Vol] 5.68 10*6/uL 4.6-6.2 [facility] Blood hemoglobin measurement (mass/volume)Ordered By: Dr. Alfred on 04-29-2022 Hemoglobin (Bld) [Mass/Vol] 16.8 g/dL 13.0-16.5 [facility] Blood lymphocytes/100 leukoc ytesOrdered By: Dr. Alfred on 04-29-2022 Lymphocytes/100 WBC (Bld) 16.9 % 19-41 [facility] Blood monocytes/100 leukocyt esOrdered By: Dr. Alfred on 04-29-2022 Monocytes/100 WBC (Bld) 6.9 % 0-10 [facility] Blood platelet mean volumeOr dered By: Dr. Alfred on 04-29-2022 Platelet mean volume (Bld) [Entitic vol] 12.1 fL 6.2-12.0 [facility] Determination of erythrocyte mean corpuscular volume (MCV)Ordered By: Dr. Alfred on 04-29-2022 MCV (RBC) [Entitic vol] 86.3 fL 80-94 [facility] Hematocrit Auto (Bld) [Volum e fraction]Ordered By: Dr. Alfred on 04-29-2022 Hematocrit (Bld) [Volume fraction] 49.0 % 40-54 [facility] Laboratory - Chemistry and C hemistry - challengeOrdered By: Dr. Alfred on 04-29-2022 CO2 [Moles/Vol] 28.0 mmol/L 21.0-32.0 [facility] Magnesium [Mass/Vol] 2.3 mg/dL 1.6-2.6 [facility] Urea nitrogen/Creatinine [Mass ratio] 16.2 mg/mg 10-20 [facility] Laboratory - Hematology and Cell countsOrdered By: Dr. Alfred on 04-29-2022 Erythrocyte distribution width (RBC) [Entitic vol] 42.8 fL 35.1-43.9 [facility] Erythrocyte distribution width (RBC) [Ratio] 13.7 % 11.6-14.6 [facility] Immature granulocytes/100 WBC (Bld) 0.300 % 0.0-0.9 [facility] Comment on above: IG% - Immature Granu locytes (promyelocytes, myelocytes and metamyelocytes) > 1% indicates that a LEFT SHIFT is Present. MCH (RBC) [Entitic mass] 29.6 pg 27.0-32.0 [facility] Nucleated RBC/100 WBC (Bld) [Ratio] 0 % 0-5 [facility] MCHC Auto (RBC) [Mass/Vol]Or dered By: Dr. Alfred on 04-29-2022 MCHC (RBC) [Mass/Vol] 34.3 g/dL 32-36 [facility] No Panel InformationOrdered By: Dr. Alfred on 04-29-2022 Estimated GFR (MDRD) Amer 71 mL/min >60 [facility] Comment on above: GFR Calc Estimated GFR (MDRD) Non-Af Amer 59 mL/min >60 [facility] Comment on above: Non- GFR Calc Thyroid Stimulating Hormone (TSH) 1.24 uIU/mL 0.358-3.74 [facility] Platelets bldOrdered By: Dr. Alfred on 04-29-2022 Platelets (Bld) [#/Vol] 163 10*3/uL 150-450 [facility] Serum or plasma calcium peterson urement (mass/volume)Ordered By: Dr. Alfred on 04-29-2022 Calcium [Mass/Vol] 9.5 mg/dL 8.5-10.1 [facility] Serum or plasma creatinine m easurement (mass/volume)Ordered By: Dr. Alfred on 04-29-2022 Creatinine [Mass/Vol] 1.30 mg/dL 0.70-1.30 [facility] Comment on above: The validity of the calculated GFR & GFRAA in patients over 70 years has not been determined. Clinical correlation is essential. Serum or plasma urea nitroge n measurement (mass/volume)Ordered By: Dr. Alfred on 04-29-2022 Urea nitrogen [Mass/Vol] 21 mg/dL 7-18 [facility] Thin prep Papanicolaou smear with manual screeningOrdered By: Dr. Alfred on 04-29-2022 Thin prep Papanicolaou smear with manual screening 6 5-15 [facility] Basophil percentageOrdered B y: Dr. Ramos on 04-25-2022 Testosterone [Mass/Vol] 367.66 ng/dL [facility] Comment on above: CENTRAL 90% REFERENC E RANGES MALE AGE <50 197.44 - 669.58 ng/dL MALE AGE > or = 50 187.72 - 684.19 ng/dL FEMALE AGE <50 8.38 - 35.01 ng/dL FEMALE AGE > or = 50 <7.00 - 35.92 ng/dL Effective as of 01/12/21 Basophil percentageOrdered B y: Dr. Alfred on 04-20-2022 Bilirubin [Mass/Vol] 1.10 mg/dL 0.20-1.00 [facility] Comment on above: For patients on eltr ombopag therapy, use of Dimension [place] TBIL is not recommended. Cholesterol [Mass/Vol] 73 mg/dL <200 [facility] Comment on above: <200 mg/dL Desirable 200-240 mg/dL Borderline >240 mg/dL High Risk Protein [Mass/Vol] 7.3 g/dL 6.4-8.2 [facility] Triglyceride [Mass/Vol] 139 mg/dL <199 [facility] Comment on above: The drugs N-Acetylcy steine and Metamizole may falsely depress this assay.Serum Triglycerides Reference Interval Normal <150 mg/dL Borderline high 150 - 199 mg/dL High 200 - 499 mg/dL Very High > or = 500 mg/dL Direct bilirubinOrdered By: Dr. Alfred on 04-20-2022 Bilirubin.direct [Mass/Vol] 0.31 mg/dL 0.00-0.30 [facility] LIPID PANEL (OUTSIDE)on Non-HDL Cholesterol [facility] VLDL Cholesterol [address] [facility] Laboratory - Chemistry and C hemistry - challengeOrdered By: Dr. Alfred on 04-20-2022 ALP [Catalytic activity/Vol] 77 U/L 45-117 [facility] ALT [Catalytic activity/Vol] 37 U/L 16-61 [facility] Globulin (S) [Mass/Vol] 3.4 g/dL 2.2-4.2 [facility] No Panel InformationOrdered By: Dr. Alfred on 04-20-2022 Prostate Specific Antigen Screen 2.95 ng/mL 0.00-4.00 [facility] Comment on above: This test was perfor med using the TPSA assay method for the[facility] system. Values obtained with differentassay methods cannot be used interchangably.When changing PSA assays in the course of monitoring apatient, additional sequential testing should be carriedout to confirm baseline values. Serum or plasma albumin peterson urement (mass/volume)Ordered By: Dr. Alfred on 04-20-2022 Albumin [Mass/Vol] 3.9 g/dL 3.2-5.0 [facility] Serum or plasma cholesterol in HDL measurement (mass/volume)Ordered By: Dr. Alfred on 04-20-2022 Cholesterol in HDL [Mass/Vol] 27 mg/dL >40 [facility] Comment on above: The drugs N-Acetylcy steine and Metamizole may falsely depress this assay. Reference Range HDL <40 mg/dL Low HDL Cholesterol HDL >or= 60 mg/dL High HDL Cholesterol Serum or plasma cholesterol in VLDL measurement (mass/volume)Ordered By: Dr. Alfred on 04-20-2022 Cholesterol in VLDL [Mass/Vol] 28 mg/dL 5-40 [facility] Serum or plasma low density lipoprotein (LDL) cholesterol measurement (mass/volume)Ordered By: Dr. Alfred on 04-20-2022 Cholesterol in LDL [Mass/Vol] 18 mg/dL 0-130 [facility] Thin prep Papanicolaou smear with manual screeningOrdered By: Dr. Alfred on 04-20-2022 Thin prep Papanicolaou smear with manual screening 21 U/L 15-37 [facility] Absolute lymphocyte counton 02-12-2022 Lymphocytes Auto (Unsp spec) [#/Vol] 1.10 10*3/uL 0.83-4.51 [facility] Work Phone: Basophil percentageon 2021 Basophils/100 WBC (Bld) 0.2 % 0-1 [facility] Work Phone: Bilirubin [Mass/Vol] 1.00 mg/dL 0.20-1.00 [facility] Work Phone: Comment on above: For patients on eltr ombopag therapy, use of Dimension [place] TBIL is not recommended. Chloride [Moles/Vol] 110 mmol/L 98-107 [facility] Work Phone: Eosinophils/100 WBC (Bld) 2.5 % 0-5 [facility] Work Phone: Glucose [Mass/Vol] 94 mg/dL 74-106 [facility] Work Phone: Neutrophils (Bld) [#/Vol] 3.6 10*3/uL 2.0-7.7 [facility] Work Phone: Neutrophils/100 WBC (Bld) 67.4 % 47-70 [facility] Work Phone: Potassium [Moles/Vol] 4.1 mmol/L 3.5-5.1 [facility] Work Phone: Protein [Mass/Vol] 7.3 g/dL 6.4-8.2 [facility] Work Phone: Sodium [Moles/Vol] 141 mmol/L 136-145 [facility] Work Phone: WBC (Bld) [#/Vol] 5.3 10*3/uL 4.4-11.0 [facility] Work Phone: Blood erythrocytes count (nu mber/volume)on 02-12-2022 RBC (Bld) [#/Vol] 5.64 10*6/uL 4.6-6.2 [facility] Work Phone: Blood hemoglobin measurement (mass/volume)on 02-12-2022 Hemoglobin (Bld) [Mass/Vol] 15.8 g/dL 13.0-16.5 [facility] Work Phone: Blood lymphocytes/100 leukoc yteson 02-12-2022 Lymphocytes/100 WBC (Bld) 20.8 % 19-41 [facility] Work Phone: Blood monocytes/100 leukocyt eson 02-12-2022 Monocytes/100 WBC (Bld) 8.9 % 0-10 [facility] Work Phone: Blood platelet mean volumeon 02-12-2022 Platelet mean volume (Bld) [Entitic vol] 11.3 fL 6.2-12.0 [facility] Work Phone: Determination of erythrocyte mean corpuscular volume (MCV)on 02-12-2022 MCV (RBC) [Entitic vol] 86.0 fL 80-94 [facility] Work Phone: Erythrocyte sedimentation ra ankush 02-12-2022 ESR (Bld) [Velocity] 6 mm/h 0-20 [facility] Work Phone: Hematocrit Auto (Bld) [Volum e fraction]on 02-12-2022 Hematocrit (Bld) [Volume fraction] 48.5 % 40-54 [facility] Work Phone: Laboratory - Chemistry and C hemistry - challengeon 02-12-2022 ALP [Catalytic activity/Vol] 74 U/L 45-117 [facility] Work Phone: ALT [Catalytic activity/Vol] 34 U/L 16-61 [facility] Work Phone: CO2 [Moles/Vol] 30.0 mmol/L 21.0-32.0 [facility] Work Phone: Globulin (S) [Mass/Vol] 3.3 g/dL 2.2-4.2 [facility] Work Phone: Urea nitrogen/Creatinine [Mass ratio] 16.0 mg/mg 10-20 [facility] Work Phone: Laboratory - Hematology and Cell countson 02-12-2022 Erythrocyte distribution width (RBC) [Entitic vol] 41.6 fL 35.1-43.9 [facility] Work Phone: Erythrocyte distribution width (RBC) [Ratio] 13.5 % 11.6-14.6 [facility] Work Phone: Immature granulocytes/100 WBC (Bld) 0.200 % 0.0-0.9 [facility] Work Phone: Comment on above: IG% - Immature Granu locytes (promyelocytes, myelocytes and metamyelocytes) > 1% indicates that a LEFT SHIFT is Present. MCH (RBC) [Entitic mass] 28.0 pg 27.0-32.0 [facility] Work Phone: Nucleated RBC/100 WBC (Bld) [Ratio] 0 % 0-5 [facility] Work Phone: MCHC Auto (RBC) [Mass/Vol]on 02-12-2022 MCHC (RBC) [Mass/Vol] 32.6 g/dL 32-36 [facility] Work Phone: No Panel Informationon 02-12 Estimated Creatinine Clearance Calc 88.73 ml/min [facility] Work Phone: Estimated GFR (MDRD) Amer 90 mL/min >60 [facility] Work Phone: Comment on above: GFR Calc Estimated GFR (MDRD) Non-Af Amer 75 mL/min >60 [facility] Work Phone: Comment on above: Non- GFR Calc Platelets bldon 02-12-2022 Platelets (Bld) [#/Vol] 142 10*3/uL 150-450 [facility] Work Phone: Serum or plasma albumin peterson urement (mass/volume)on 02-12-2022 Albumin [Mass/Vol] 4.0 g/dL 3.2-5.0 [facility] Work Phone: Serum or plasma albumin/glob ulin mass ratioon 02-12-2022 Albumin/Globulin [Mass ratio] 1.2 {ratio} 0.9-2.4 [facility] Work Phone: Serum or plasma calcium peterson urement (mass/volume)on 02-12-2022 Calcium [Mass/Vol] 9.1 mg/dL 8.5-10.1 [facility] Work Phone: Serum or plasma creatinine m easurement (mass/volume)on 02-12-2022 Creatinine [Mass/Vol] 1.06 mg/dL 0.70-1.30 [facility] Work Phone: Comment on above: The validity of the calculated GFR & GFRAA in patients over 70 years has not been determined. Clinical correlation is essential. Serum or plasma urea nitroge n measurement (mass/volume)on 02-12-2022 Urea nitrogen [Mass/Vol] 17 mg/dL 7-18 [facility] Work Phone: Thin prep Papanicolaou smear with manual screeningon 02-12-2022 Thin prep Papanicolaou smear with manual screening 20 U/L 15-37 [facility] Work Phone: Thin prep Papanicolaou smear with manual screening 1 5-15 [facility] Work Phone: No Panel Informationon 11-29 D-Dimer Quantitative (PE/DVT) 0.40 FEU/ug/m 0.27-0.49 [facility] Work Phone: Comment on above: NORMAL D-Dimer level (<0.50) indicates no DVT or PE. XR Chest PA and Lateralon IMPRESSION: Left basilar atelectasis or mild infiltrates unchanged. Mobile Pet Groomer: PSCB Transcribe Date/Time: Nov 29 2021 1:44P Dictated by : LETTY THOMAS MD This examination was interpreted and the report reviewed and electronically signed by: LETTY THOMAS MD on Nov 29 2021 1:46PM EST NEEMA_DO_NOT_ USE_DIVISIO N OF RADIOLOGY * * *Final Report* * * DATE OF EXAM: Nov 29 2021 1:13PM WOX 5291 - XR CHEST 2V FRONTAL/LAT / PROCEDURE REASON: multiple diagnoses * * * * Physician Interpretation * * * * EXAMINATION: CHEST RADIOGRAPH (2 VIEW FRONTAL & LATERAL) CLINICAL HISTORY: Other pulmonary embolism without acute cor pulmonale, unspecified chronicity (HCC) Chest pain, unspecified type MQ: XC2_6 EXAM DATE/TIME: 11/29/2021 1:13 PM COMPARISON: Chest x-ray on 02/28/2020. RESULT: Lines, tubes, and devices: None. Lungs and pleura: Left basilar atelectasis or mild infiltrates are again demonstrated. No new consolidations seen. No masses. No pleural effusions or pneumothorax. There is a large left-sided pericardial fat pad. Cardiomediastinal silhouette: Stable cardiomediastinal silhouette. Bones and soft tissues: There are degenerative changes in the spine. Interval spinal cord stimulator in place with its lead extending superiorly to the mid thoracic level. ZZZ_DO_NOT_ USE_DIVISIO N OF RADIOLOGY Provider, Tavo Rocha - 11/29/2021 * * *Final Report* * * DATE OF EXAM: Nov 29 2021 1:13PM WOX 5291 - XR CHEST 2V FRONTAL/LAT / PROCEDURE REASON: multiple diagnoses * * * * Physician Interpretation * * * * EXAMINATION: CHEST RADIOGRAPH (2 VIEW FRONTAL & LATERAL) CLINICAL HISTORY: Other pulmonary embolism without acute cor pulmonale, unspecified chronicity (HCC) Chest pain, unspecified type MQ: XC2_6 EXAM DATE/TIME: 11/29/2021 1:13 PM COMPARISON: Chest x-ray on 02/28/2020. RESULT: Lines, tubes, and devices: None. Lungs and pleura: Left basilar atelectasis or mild infiltrates are again demonstrated. No new consolidations seen. No masses. No pleural effusions or pneumothorax. There is a large left-sided pericardial fat pad. Cardiomediastinal silhouette: Stable cardiomediastinal silhouette. Bones and soft tissues: There are degenerative changes in the spine. Interval spinal cord stimulator in place with its lead extending superiorly to the mid thoracic level. IMPRESSION IMPRESSION: Left basilar atelectasis or mild infiltrates unchanged. Mobile Pet Groomer: OSMANI Transcribe Date/Time: Nov 29 2021 1:44P Dictated by : LETTY THOMAS MD This examination was interpreted and the report reviewed and electronically signed by: LETTY THOMAS MD on Nov 29 2021 1:46PM EST [facility] Radiology Study observation (narrative) [facility] XR Chest PA and LateralOrder ed By: [facility] Provider on 11-29-2021 [facility] Basophil percentageon 2021 Testosterone [Mass/Vol] 128.64 ng/dL [facility] Work Phone: Comment on above: CENTRAL 90% REFERENC E RANGES MALE AGE <50 197.44 - 669.58 ng/dL MALE AGE > or = 50 187.72 - 684.19 ng/dL FEMALE AGE <50 8.38 - 35.01 ng/dL FEMALE AGE > or = 50 <7.00 - 35.92 ng/dL Effective as of 01/12/21 Serum or plasma testosterone free measurement (mass/volume)on 10-20-2021 Testosterone Free [Mass/Vol] 2.0 pg/mL 6.6-18.1 [facility] Work Phone: Comment on above: Performed at: [address] [id number] Director: Teresa Olivia MD, Phone: [phone] No Panel Informationon 09-10 IMPRESSION: 1. Right ankle grossly unremarkable. 2. First MTP joint degenerative arthritis again noted. Bones otherwise intact in the right foot. Mobile Pet Groomer: OSMANI Transcribe Date/Time: Sep 10 2021 6:58P Dictated by : MYKE OWEN MD This examination was interpreted and the report reviewed and electronically signed by: MYKE OWEN MD on Sep 10 2021 7:00PM [facility] DIVISION OF RADIOLOGY Radiology Study observation (narrative) [facility] No Panel InformationOrdered By: [facility] Provider on 09-10-2021 [facility] XR Ankle - right AP and Late ral and obliqueon 09-10-2021 * * *Final Report* * * DATE OF EXAM: Sep 10 2021 4:32PM STX 5297 - XR ANKLE 3V AP/LAT/OBL RT / PROCEDURE REASON: Pain * * * * Physician Interpretation * * * * HISTORY: chronic right ankle pain (accession [id number]), chronic right foot pain (accession [id number]). Pain . TECHNIQUE: XR ANKLE 3V AP/LAT/OBL RT, XR FOOT 3V AP/LAT/OBL RT Laterality: RIGHT Number of different views (projections): 3 views of the right ankle and 3 views of the right foot COMPARISON: 2020 RESULT: Right ankle is well-maintained, no fracture identified. No discrete soft tissue swelling. Examination of the right foot demonstrates normal alignment is no fracture. Degenerative changes again identified in the first MTP joint. Elsewhere joint spaces are maintained. Benign reactive changes of the medial aspect of navicular bone unchanged. DIVISION OF RADIOLOGY Provider, [facility] - 09/10/2021 * * *Final Report* * * DATE OF EXAM: Sep 10 2021 4:32PM STX 5297 - XR ANKLE 3V AP/LAT/OBL RT / PROCEDURE REASON: Pain * * * * Physician Interpretation * * * * HISTORY: chronic right ankle pain (accession [id number]), chronic right foot pain (accession [id number]). Pain . TECHNIQUE: XR ANKLE 3V AP/LAT/OBL RT, XR FOOT 3V AP/LAT/OBL RT Laterality: RIGHT Number of different views (projections): 3 views of the right ankle and 3 views of the right foot COMPARISON: 2020 RESULT: Right ankle is well-maintained, no fracture identified. No discrete soft tissue swelling. Examination of the right foot demonstrates normal alignment is no fracture. Degenerative changes again identified in the first MTP joint. Elsewhere joint spaces are maintained. Benign reactive changes of the medial aspect of navicular bone unchanged. IMPRESSION IMPRESSION: 1. Right ankle grossly unremarkable. 2. First MTP joint degenerative arthritis again noted. Bones otherwise intact in the right foot. Mobile Pet Groomer: PSCB Transcribe Date/Time: Sep 10 2021 6:58P Dictated by : MYKE OWEN MD This examination was interpreted and the report reviewed and electronically signed by: MYKE OWEN MD on Sep 10 2021 7:00PM EST [facility] XR Foot - right AP and Later al and obliqueon 09-10-2021 * * *Final Report* * * DATE OF EXAM: Sep 10 2021 4:32PM STX 5337 - XR FOOT 3V AP/LAT/OBL RT / PROCEDURE REASON: Pain * * * * Physician Interpretation * * * * HISTORY: chronic right ankle pain (accession [id number]), chronic right foot pain (accession [id number]). Pain . TECHNIQUE: XR ANKLE 3V AP/LAT/OBL RT, XR FOOT 3V AP/LAT/OBL RT Laterality: RIGHT Number of different views (projections): 3 views of the right ankle and 3 views of the right foot COMPARISON: 2020 RESULT: Right ankle is well-maintained, no fracture identified. No discrete soft tissue swelling. Examination of the right foot demonstrates normal alignment is no fracture. Degenerative changes again identified in the first MTP joint. Elsewhere joint spaces are maintained. Benign reactive changes of the medial aspect of navicular bone unchanged. DIVISION OF RADIOLOGY Provider, [facility] - 09/10/2021 * * *Final Report* * * DATE OF EXAM: Sep 10 2021 4:32PM STX 5337 - XR FOOT 3V AP/LAT/OBL RT / PROCEDURE REASON: Pain * * * * Physician Interpretation * * * * HISTORY: chronic right ankle pain (accession [id number]), chronic right foot pain (accession [id number]). Pain . TECHNIQUE: XR ANKLE 3V AP/LAT/OBL RT, XR FOOT 3V AP/LAT/OBL RT Laterality: RIGHT Number of different views (projections): 3 views of the right ankle and 3 views of the right foot COMPARISON: 2020 RESULT: Right ankle is well-maintained, no fracture identified. No discrete soft tissue swelling. Examination of the right foot demonstrates normal alignment is no fracture. Degenerative changes again identified in the first MTP joint. Elsewhere joint spaces are maintained. Benign reactive changes of the medial aspect of navicular bone unchanged. IMPRESSION IMPRESSION: 1. Right ankle grossly unremarkable. 2. First MTP joint degenerative arthritis again noted. Bones otherwise intact in the right foot. Mobile Pet Groomer: PSCB Transcribe Date/Time: Sep 10 2021 6:58P Dictated by : MYKE OWEN MD This examination was interpreted and the report reviewed and electronically signed by: MYKE OWEN MD on Sep 10 2021 7:00PM [facility] CSon 09-05-2020 [facility] REPORT Normal [facility] DATE OF SERVICE: SUBJECTIVE: Patient is here with a history of gout and right great toe pain beginning several days after he stopped taking his allopurinol. OBJECTIVE: Right great toe is tender. ASSESSMENT: Gout. PLAN: Prednisone 60 mg daily for up to 5 days. Resume other medications. Abraham Rosa MD [id number] SSI File#: [id number] END OF DOCUMENT / CHANGE LOG FOLLOWS Last Edited By [employer]c. Signed By Abraham Rosa MD #Abraham Lisa MD #KELVIN on 09/14/2020 09:32 ET on 09/14/2020 09:32 ET Revision Number - 2 * [place] [facility] PATIENT NAME: LAZARO GARZON [facility] MEDICAL REC #: [id number] [place] [facility] Verified/Reviewed by 09/14/20 Wilber WARREN * [facility] PATIENT NAME: LAZARO GARZON [facility] MEDICAL REC #: [id number] [place] AD[place] DATE: [facility] PHYSICIAN [facility] XR Foot - right AP and Later al and obliqueon 04-29-2020 IMPRESSION: No acute findings. Mobile Pet Groomer: OSMANI Transcribe Date/Time: Apr 29 2020 9:20A Dictated by : NAIDA BARAJAS MD This examination was interpreted and the report reviewed and electronically signed by: NAIDA BARAJAS MD on Apr 29 2020 9:22AM [facility] DIVISION OF RADIOLOGY * * *Final Report* * * DATE OF EXAM: Apr 28 2020 4:18PM WOX 5337 - XR FOOT 3V AP/LAT/OBL RT / PROCEDURE REASON: Pain of right heel * * * * Physician Interpretation * * * * EXAMINATION: XR FOOT 3V AP/LAT/OBL RT HISTORY: Pt. states Rt plantar heel pain for a couple of weeks. No injury. Pain of right heel . TECHNIQUE: XR FOOT 3V AP/LAT/OBL RT Laterality: RIGHT Number of different views (projections): 3 M: XB_1 COMPARISON: None RESULT: Mild narrowing of first MTP joint with small osteophytes and subchondral cyst formation. Prominent medial surface of navicular with sclerosis and bony spurring. Dorsal talar neck osteophyte. Achilles calcaneal enthesophyte. Small distal tibial osteophyte anteriorly. No acute fracture or dislocation. No periostitis or erosions. No other significant abnormality. DIVISION OF RADIOLOGY Provider, [facility] [place] - 04/29/2020 * * *Final Report* * * DATE OF EXAM: Apr 28 2020 4:18PM WOX 5337 - XR FOOT 3V AP/LAT/OBL RT / PROCEDURE REASON: Pain of right heel * * * * Physician Interpretation * * * * EXAMINATION: XR FOOT 3V AP/LAT/OBL RT HISTORY: Pt. states Rt plantar heel pain for a couple of weeks. No injury. Pain of right heel . TECHNIQUE: XR FOOT 3V AP/LAT/OBL RT Laterality: RIGHT Number of different views (projections): 3 M: XB_1 COMPARISON: None RESULT: Mild narrowing of first MTP joint with small osteophytes and subchondral cyst formation. Prominent medial surface of navicular with sclerosis and bony spurring. Dorsal talar neck osteophyte. Achilles calcaneal enthesophyte. Small distal tibial osteophyte anteriorly. No acute fracture or dislocation. No periostitis or erosions. No other significant abnormality. IMPRESSION IMPRESSION: No acute findings. Mobile Pet Groomer: OSMANI Transcribe Date/Time: Apr 29 2020 9:20A Dictated by : NAIDA BARAJAS MD This examination was interpreted and the report reviewed and electronically signed by: NAIDA BARAJAS MD on Apr 29 2020 9:22AM EST [facility] XR Foot - right AP and Later al and obliqueOrdered By: [facility] Provider on 04-29-2020 [facility] XR Foot - right AP and Later al and obliqueon 04-28-2020 Radiology Study observation (narrative) [facility] .GFRon 08-28-2019 GFR 75 ml/min/1.73sqm Normal [facility] ([place]) Comment on above: Result Comment: GFR Population mean for , Non- Americans Ages 20-29 = 116 mL/min/1.73 sq.m. Ages 30-39 = 107 mL/min/1.73 sq.m. Ages 40-49 = 99 mL/min/1.73 sq.m. Ages 50-59 = 93 mL/min/1.73 sq.m. Ages 60-69 = 85 mL/min/1.73 sq.m. Ages 70+ = 75 mL/min/1.73 sq.m. Chronic Kidney Disease: Less than 60 mL/min/1.73 square meters End Stage Renal Disease: Less than 15 mL/min/1.73 square meters Performed By: #### C RE, GFR #### [place] [address] GFR Non- 62 ml/min/1.73sqm Normal [facility] ([place]) Comment on above: Result Comment: GFR Population mean for , Non- Americans Ages 20-29 = 116 mL/min/1.73 sq.m. Ages 30-39 = 107 mL/min/1.73 sq.m. Ages 40-49 = 99 mL/min/1.73 sq.m. Ages 50-59 = 93 mL/min/1.73 sq.m. Ages 60-69 = 85 mL/min/1.73 sq.m. Ages 70+ = 75 mL/min/1.73 sq.m. Chronic Kidney Disease: Less than 60 mL/min/1.73 square meters End Stage Renal Disease: Less than 15 mL/min/1.73 square meters Performed By: #### C RE, GFR #### [place] [address] CREon 08-28-2019 Creatinine [Mass/Vol] 1.19 mg/dL Normal 0.70-1.30 [facility] ([place]) Comment on above: Performed By: #### C RE, GFR #### [place] [address] CT ENTEROGRAPHY ABD/PELVIS W /CONTRASTon 08-28-2019 CT ENTEROGRAPHY ABD/PELVIS W/CONTRAST ORIGINAL CT ENTEROGRAPHY ABD/PELVIS W/CONTRAST This exam was performed according to our departmental dose optimization program, and includes the following measures where applicable: automated exposure control, adjustment of the mAs and/or kVp according to patient size and/or exam, and an iterative reconstruction algorithm. CLINICAL STATEMENT: UMBILICAL HERNIA. Abdominal pain, gastroenteritis, colitis. History of cholecystectomy, prostate surgery and penile pump COMPARISON: MRI thoracic spine 03/26/2019 FINDINGS: There is a 1 cm RIGHT hepatic lobe hypodensity, measuring 12 Hounsfield units and likely simple cyst. Liver is otherwise normal. There is probably diffuse fatty infiltration. Spleen, pancreas and RIGHT adrenal gland are normal. There is a 1.7 cm LEFT renal nodule measuring 70 Hounsfield units. Gallbladder surgically absent. Kidneys are normal and symmetric in size and contrast excretion. There is a inferior RIGHT renal pole 3.8 cm simple cyst. There may be LEFT renal parapelvic cysts. Bladder is normal. Prostate at least moderately enlarged, 6.7 cm transverse diameter. Penile pump is noted. Visualized gastrointestinal tract demonstrates no acute or suspicious abnormality. There is mild sigmoid diverticulosis without diverticulitis. No free fluid or air. There is a small fat-containing umbilical hernia, measuring 1 cm in its base. Aorta is normal in caliber. No lymphadenopathy. Lung bases demonstrate no focal consolidation or suspicious nodule. Heart is normal in size. There are a few scattered sclerotic foci. In the spine, the most prominent involves the T10 and T11 vertebral bodies, measuring up to 1 cm in T10. These are unchanged from MR exam 03/26/2019. There are a few scattered sclerotic foci throughout the pelvis, the most prominent is a 1.2 cm RIGHT inferior pubic ramus sclerotic focus. IMPRESSION: 1. No acute inflammatory process. 2. LEFT adrenal 1.7 cm indeterminate density nodule. Recommend adrenal CT protocol for further characterization. Alternatively, stability with any potential priors not available this time could preclude need for further characterization. 3. Moderate prostatomegaly. 4. Sigmoid diverticulosis without diverticulitis. 5. Small fat-containing umbilical hernia. 6. Several sclerotic foci involving the spine and pelvis, measuring up to 1.2 cm in the RIGHT inferior pubic ramus. The larger vertebral lesions are stable from 03/26/2019. If patient does not have history of malignancy, these are most likely benign bone islands. I have personally reviewed the images of this examination and agree with the resident's findings and interpretation. Interpreted By: Reagan Dillon MD Preliminary Report By: Thad Pozo MD Electronically Signed By: Reagan Dillon MD Dictated Date: 08/28/2019 9:48:54 AM Prelim Date: 08/28/2019 10:00:55 AM Sign Date: 08/28/2019 10:39:54 AM Ordering Provider:Fabian Hauser [facility] ([place]) EMERGENCY REPORTon 8 EMERGENCY REPORT [facility] EM ERGENCY ROOM REPORT NAME ACCOUNT SEX AGE ADMIT DISCHARGE PT MED. RECORD# NUMBER DATE DATE TYPE DURAN [id number] Sincere 62 10/30/17 10/30/17 3 LAZARO [id number] ROOM: ER DATE OF : 1955 DICTATING [...] years. 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 PAST MEDICAL HISTORY: TIA, hypertension. PAST SURGICAL [...] did try to get him transferred to [facility]; however, they do no have any beds. We are going to call his solar lab technician, Dr. Alfred. Dictated By: Jagjit Souza DO 10/30/17 10:48 JOB #: [id number] Transcribed By: mauricio 10/30/17 17:37 Electronically signed by: LOYD Souza D.O. 11/05/17 09:59 Page 2 of 2 LAZARO GARZON Emergency Room Report Normal [facility] APTTon 10-30-2017 aPTT 29.2 s Normal 21.6 - 35.4 [facility] Comment on above: Performed By: #### 2 13418 ####[place] [address] CBCon 10-30-2017 Basophils Auto #/vol (Bld) 0.00 x10EE3/UL Normal 0.00 - 0.10 [facility] Comment on above: Performed By: #### 2 13247 ####[place] [address] Basophils/100 WBC Auto (Bld) 0.5 % Normal 0.0 - 2.0 [facility] Comment on above: Performed By: #### 2 65170 ####[place] [address] Blood morphology N/A Normal [facility] Comment on above: Result Comment: {CD] Performed By: #### 2 89935 ####[place] [address] CBC Normal [facility] Comment on above: Result Comment: CBC- COMPLETE BLOOD COUNT Performed By: #### 2 18371 ####[facility],[address] [place], [place] [id number] Eosinophils 0.10 x10EE3/UL Normal 0.00 - 0.50 [facility] Comment on above: Performed By: #### 2 82189 ####[facility],[address] [place] [address] Eosinophils/100 leukocytes 1.2 % Normal 0.0 - 7.0 [facility] Comment on above: Performed By: #### 2 24654 ####[place] [address] Erythrocyte distribution width Auto Ratio (RBC) 14.5 % Normal 12.0 - 15.6 [facility] Comment on above: Performed By: #### 2 74312 ####[place] [address] Erythrocytes (RBC) 6.19 x 10EE6/UL High 4.50 - 6.00 [facility] Comment on above: Performed By: #### 2 60771 ####[place] [address] Hematocrit (HCT) 50.5 % Normal 40.0 - 52.0 [facility] Comment on above: Performed By: #### 2 05726 ####[facility],[address] [place] [address] Hemoglobin mass conc (Bld) 17.7 g/dL High 13.0 - 17.5 [facility] Comment on above: Performed By: #### 2 32719 ####[place] [id number] Lymphocytes 1.20 x10EE3/UL Normal 0.80 - 2.80 [facility] Comment on above: Performed By: #### 2 79694 ####[place] [id number] Lymphocytes/100 leukocytes 20.2 % Normal 20.0 - 45.0 [facility] Comment on above: Performed By: #### 2 43008 ####[facility],[address] [place] [address] MANUAL DIFF N/A Normal [facility] Comment on above: Performed By: #### 2 12567 ####[facility],[address] [place] [address] MCH 29 pg Normal 27 - 33 [facility] Comment on above: Performed By: #### 2 90301 ####[facility],[address] [place] [address] MCHC mass conc (RBC) 35 X10 3 Normal 32 - 36 [facility] Comment on above: Performed By: #### 2 12125 ####[facility],[address] [place] [address] MCV 82 fL Normal 81 - 98 [facility] Comment on above: Performed By: #### 2 62268 ####[facility],[address] [place] [address] Monocytes 0.50 x10EE3/UL Normal 0.20 - 1.00 [facility] Comment on above: Performed By: #### 2 00959 ####[facility],[address] [place] [address] MONOS % 8.3 % Normal 0.0 - 10.0 [facility] Comment on above: Performed By: #### 2 58139 ####[facility],[address] [place] [address] Neutrophils 4.30 x10EE3/UL Normal 1.50 - 7.10 [facility] Comment on above: Performed By: #### 2 29511 ####[facility],[address] [place], [place] [id number] Neutrophils/100 WBC Auto (Bld) 69.8 % Normal 46.0 - 76.0 [facility] Comment on above: Performed By: #### 2 52132 ####[facility],[address] [place] [address] 20239 Platelet mean volume (PMV) 9.4 fL Normal 6.4 - 10.5 [facility] Comment on above: Result Comment: AUTO MATED DIFFERENTIAL Performed By: #### 2 54893 ####[facility],[address] [place] [address] 63966 Platelets 137 x10EE3/UL Low 150 - 450 [facility] Comment on above: Performed By: #### 2 36817 ####[facility],[address] [place] [address] 03760 WBC (Leukocytes) 6.2 x 10EE3/UL Normal 4.5 - 10.8 [facility] Comment on above: Performed By: #### 2 40103 ####[facility],[address] [place] [address] 91120 CHEST 1 VIEWon 10-30-2017 CHEST 1 VIEW [place] [address] Patient: LAZARO GARZON Phone#: : 1955 Age: 62 Gender: M Pt. Type: ER Account: [id number] Location: [facility] Ordering: JAGJIT SOUZA Exam Date: 10/30/2017/9:06 Family Phys: Charge Code: [id number] Physician: [place] Order #: [id number] DLP Dose#: PROCEDURE: X-RAY CHEST 1 VIEW [...] Светлана Samayoa MD on 10/30/2017 at 9:28 Normal [facility] CMP with eGFRon 10-30-2017 Age 62 years Normal [facility] Comment on above: Performed By: #### 2 83251 ####[facility],[address] [place] [address] 85633 Albumin 4.4 g/dL Normal 3.4 - 4.8 [facility] Comment on above: Performed By: #### 2 84937 ####[facility],[address] [place] [address] 55413 Albumin/Globulin Ratio 1.9 {ratio} High 0.9 - 1.6 [facility] Comment on above: Performed By: #### 2 92638 ####[facility],[address] [place] [address] 12592 ALK PHOS 55 U/L Normal 38 - 126 [facility] Comment on above: Performed By: #### 2 35297 ####[facility],[address] [place] [address] 17499 ALT/SGPT 19 U/L Normal 10 - 40 [facility] Comment on above: Performed By: #### 2 61514 ####[facility],[address] [place] [address] 50357 Anion gap 12 mmol/L Normal 10 - 20 [facility] Comment on above: Performed By: #### 2 98665 ####[facility],[address] [place] [address] 38393 AST/SGOT 16 U/L Normal 13 - 39 [facility] Comment on above: Performed By: #### 2 71113 ####[facility],[address] [place] [address] 99046 B/C RATIO 15 ratio Normal 0 - 30 [facility] Comment on above: Performed By: #### 2 27262 ####[facility],[address] [place] [address] 60149 Bilirubin (total) 1.0 mg/dL Normal 0.0 - 1.5 [facility] Comment on above: Performed By: #### 2 63963 ####[facility],[address] [place] [address] 83008 Calcium 9.5 mg/dL Normal 8.6 - 10.2 [facility] Comment on above: Performed By: #### 2 31453 ####[facility],[address] [place] [address] 48940 Chloride 103 mmol/L Normal 98 - 107 [facility] Comment on above: Performed By: #### 2 08894 ####[facility],[address] [place] [address] 50524 CO2 26.2 mmol/L Normal 21.0 - 31.0 [facility] Comment on above: Performed By: #### 2 42792 ####[facility],[address] [place] [address] 28028 Creatinine 1.1 mg/dL Normal 0.7 - 1.3 [facility] Comment on above: Performed By: #### 2 45638 ####[facility],[address] [place] [address] 50877 eGFR (non-black) Normal [facility] Comment on above: Result Comment: COMP REHENSIVE METABOLIC PANEL Performed By: #### 2 96868 ####[facility],[address] [place] [address] 06281 eGFR (non-black) mL/min/{1.73_m2} Normal 60 - [address] [facility] Comment on above: Performed By: #### 2 12342 ####[facility],[address] [place] [address] 68676 Result Comment: ACCO RDING TO THE NATIONAL KIDNEY DISEASE EDUCATION PROGRAM(NKDE), A NORMAL eGFRIS A VALUE GREATER THAN OR EQUAL TO 60 ML/MIN/1.73 SQ METERS.CHRONIC KIDNEY DISEASE: <60mL/MIN/1.73 SQ METERSKIDNEY FAILURE: <15mL/MIN/1.73 SQ METERSTHIS TEST SHOULD ONLY BE USED FOR PATIENTS 18 YEARS OF AGE AND OLDER. Globulin 2.3 g/dL Normal 1.5 - 3.8 [facility] Comment on above: Performed By: #### 2 36309 ####[facility],[address] [place] [address] 24984 Glucose mass conc 109 mg/dL High 74 - 106 [facility] Comment on above: Performed By: #### 2 40298 ####[facility],[address] [place] [address] 72402 Potassium molar conc 3.5 mmol/L Normal 3.5 - 5.1 [facility] Comment on above: Performed By: #### 2 33019 ####[facility],[address] [place] [address] 65247 Protein 6.7 g/dL Normal 6.4 - 8.3 [facility] Comment on above: Performed By: #### 2 18402 ####[facility],[address] [place] [address] 83914 Sodium 138 mmol/L Normal 136 - 145 [facility] Comment on above: Performed By: #### 2 55112 ####[facility],[address] [place] [address] 92128 Urea nitrogen 16 mg/dL Normal 6 - 20 [facility] Comment on above: Performed By: #### 2 63422 ####[facility],[address] [place] [address] 52226 D-DIMER, QUANTITATIVEon 05- D-DIMER QUANT 187 ng/ml Normal 0 - 230 [facility] Comment on above: Performed By: #### 2 82126 ####[facility],[address] [place] [address] 25691 D-DIMER, QUANTITATIVE Normal [facility] Comment on above: Result Comment: LIN T D-DIMER Performed By: #### 2 88405 ####[facility],[address] [place] [address] MAGNESIUMon 10-30-2017 Magnesium 2.0 mg/dL Normal 1.6 - 2.6 [facility] Comment on above: Performed By: #### 2 31901 ####[place] [address] PROTHROMBIN TIME AND INRon 0 10-30-2017 INR Coag RelTime (Bld) Normal [facility] Comment on above: Result Comment: PROT HROMBIN TIME AND INR Performed By: #### 2 29720 ####[place] [address] INR Coag RelTime (PPP) 1.1 {INR} Normal 0.8 - 1.2 [facility] Comment on above: Result Comment: T HE HEMOSIL THROMBOPLASTIN REAGENT USED IN THE PROTHROMBIN TIMETEST INTERACTS WITH THE DRUG CUBICIN (DAPTOMYCIN) AND WILL RESULTIN FALSELY ELEVATED PT / INR RESULTS INR INTERPRETATION INR INDICATION PREVENTION AND TREATMENT OF THROMBOEMBOLISM ASSOCIATED WITH: 2.0 - 3.0 ATRIAL FIBRILLATION, BIOPROSTHETIC HEART VALVES, PULMONARY EMBOLISM, VENOUS THROMBOSIS, SYSTEMIC EMBOLISM POST MYOCARDIAL INFARCTION 2.5 - 3.5 MECHANICAL HEART VALVES Performed By: #### 2 37447 ####[place] [address] PT-COUMADIN 12.1 sec Normal [facility] Comment on above: Performed By: #### 2 05545 ####[facility],[address] [place], [place] [address] TROPONINon 10-30-2017 Troponin I.cardiac mass conc ng/mL Normal 0.00 - 0.05 [facility] Comment on above: Result Comment: Elev ated troponin (above the 99th percentile) usually indicates myocardialischemia. Results must be interpreted within the clinical setting.1.Non-ischemic pathology can also cause elevated troponin levels (e.g., acute pulmonary embolism, myocarditis, pericarditis, heart failure, intracranial injury, rhabdomyolisis, sepsis, shock and renal insufficiency).2.Approximately 1% of healthy adults have elevated troponin levels.3.Analytical false positive results rarely occur(due to multiple interferences such as heterophile antibodies). Performed By: #### 2 39034 ####[facility],[address] [place] [address] Troponin I.cardiac mass conc 0.01 ng/mL Normal 0.00 - 0.05 [facility] Comment on above: Result Comment: Elev ated troponin (above the 99th percentile) usually indicates myocardialischemia. Results must be interpreted within the clinical setting.1.Non-ischemic pathology can also cause elevated troponin levels (e.g., acute pulmonary embolism, myocarditis, pericarditis, heart failure, intracranial injury, rhabdomyolisis, sepsis, shock and renal insufficiency).2.Approximately 1% of healthy adults have elevated troponin levels.3.Analytical false positive results rarely occur(due to multiple interferences such as heterophile antibodies). Performed By: #### 2 51613 ####[facility],[address] [place] [address] 80858 Lab Report: Lipid Profileon 07-18-2017 Cholesterol 88 mg/dL Invalid Interpretation Code 200 [employer] Work Phone: [phone] HDL Cholesterol 30 mg/dL Low [employer] Work Phone: [phone] LDL Cholesterol 30 mg/dL Invalid Interpretation Code 0-130 [employer] Work Phone: [phone] Triglyceride 138 mg/dL Invalid Interpretation Code [employer] Work Phone: [phone] very low density lipoproteins 28 mg/dL Invalid Interpretation Code 5-40 [employer] Work Phone: [phone] Lab Report: Liver Profileon 07-18-2017 Alanine aminotransferase (ALT) 32 U/L Invalid Interpretation Code 16-61 [employer] Work Phone: [phone] Albumin 3.4 g/dL Invalid Interpretation Code 3.2-5.0 [employer] Work Phone: [phone] Alkaline phosphatase (ALP) 59 U/L Invalid Interpretation Code 45-117 [employer] Work Phone: [phone] Aspartate aminotransferase (AST) 27 U/L Invalid Interpretation Code 15-37 [employer] Work Phone: [phone] Bilirubin (direct) 0.16 mg/dL Invalid Interpretation Code 0.00-0.30 [employer] Work Phone: [phone] Bilirubin (total) 0.70 mg/dL Invalid Interpretation Code 0.20-1.00 [employer] Phone: [phone] Globulin 3.3 g/dL Invalid Interpretation Code 2.2-4.2 [employer] Work Phone: [phone] Protein 6.7 g/dL Invalid Interpretation Code 6.4-8.2 [employer] Phone: [phone] Office Visiton 12-14-2016 Documentation of current medications (procedure) Done Invalid Interpretation Code [employer] Phone: [phone] Fall risk assessment No Invalid Interpretation Code [employer] Phone: [phone] Protein mass conc Done [employer] Work Phone: [phone] Replaced Document: Alexa Zaragoza CG Observationson 08-17-2016 EKG QRS axis -44 deg [employer] Work Phone: [phone] electrocardiogram interpretation Sinus Rhythm -Left axis -anterior fascicular block. ABNORMAL Invalid Interpretation Code [employer] Phone: [phone] GE use only - for [employer] import when terms are not otherwise specified 395 ms Invalid Interpretation Code [employer] Phone: [phone] Interpretation Sinus Rhythm -Left a xis -anterior fascicular block. ABNORMAL [employer] Work Phone: [phone] P [place] 53 deg [employer] Work Phone: [phone] P wave axis, electrocardiogram 53 deg Invalid Interpretation Code [employer] Phone: [phone] NE Interval 218 ms [employer] Work Phone: [phone] NE interval, electrocardiogram 218 ms Invalid Interpretation Code [employer] Phone: [phone] Pulse (Heart Rate) 80 /min Invalid Interpretation Code [employer] Phone: [phone] QRS axis, electrocardiogram -44 deg Invalid Interpretation Code [facility] Work Phone: [phone] QRS Duration 93 ms [facility] Work Phone: [phone] QRS duration, electrocardiogram 93 ms Invalid Interpretation Code [facility] Work Phone: [phone] QT Interval new path ms [facility] Work Phone: [phone] QT interval, electrocardiogram new path ms Invalid Interpretation Code [facility] Work Phone: [phone] QTc Chou 395 ms [facility] Work Phone: [phone] T [place] 30 deg [facility] Work Phone: [phone] T wave axis, electrocardiogram 30 deg Invalid Interpretation Code [facility] Work Phone: [phone] Clinical Lists Update: 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 01-14-2016 Left ventricular Ejection fraction 65 % Invalid Interpretation Code [facility] Work Phone: [phone] Office Visiton 01-04-2016 Dietary management education, guidance, and counseling (procedure) yes Invalid Interpretation Code [facility] Work Phone: [phone] Tobacco smoking status NHIS Tobacco smoking status MIIS Invalid Interpretation Code [facility] Work Phone: [phone] Tobacco smoking status MIIS Former smoker [facility] Work Phone: [phone] Lab Report: Lipid Profileon 04-18-2015 Cholesterol in HDL mass conc 31 mg/dL Low [facility] Work Phone: [phone] Cholesterol in LDL mass conc 27 mg/dL 0-130 [facility] Work Phone: [phone] Cholesterol mass conc 98 mg/dL [address] [facility] Work Phone: [phone] Lipoprotein.pre-beta mass conc 40 mg/dL 5-40 [facility] Work Phone: [phone] Triglyceride mass conc 200 mg/dL High [facility] Work Phone: [phone]) Lab Report: Liver Profileon 04-18-2015 Albumin mass conc 4.1 g/dL 3.4-5.0 [facility] Work Phone: [phone] ALP enzyme act/vol (Bld) 85 U/L 50-136 [facility] Work Phone: [phone] ALT enzyme act/vol 39 U/L 12-78 [facility] Work Phone: [phone] AST enzyme act/vol 23 U/L 15-37 [facility] Work Phone: [phone] Bilirubin mass conc 1.20 mg/dL High 0.20-1.00 [facility] Work Phone: [phone] Bilirubin.direct mass conc 0.25 mg/dL 0.00-0.30 [facility] Work Phone: [phone] Globulin mass conc (S) 3.0 g/dL 2.3-3.5 [facility] Work Phone: [phone] Protein mass conc 7.1 g/dL 6.4-8.2 [facility] Work Phone: [phone]) Lab Report: PSA,Total- Diagn osticon 04-18-2015 prostate specific antigen, total 2.47 ng/mL Invalid Interpretation Code 0.0-4.0 [facility] Work Phone: [phone] Protein mass conc 2.47 ng/mL 0.0-4.0 [facility] Work Phone: [phone]) Lab Report: T4 Total, Thyrox inon 04-18-2015 T4 mass conc 9.6 ug/dL Invalid Interpretation Code 4.5-12.1 [employer] [facility] Work Phone: [phone]) Lab Report: Thyroid Stim Hor madeleine (TSH)on 04-18-2015 Thyrotropin Qn 1.26 u[iU]/mL Invalid Interpretation Code 0.358-3.74 [facility] Work Phone: [phone] Lab Report: BNP,B-Type NATRI URETIC PEPTIDEon 01-08-2015 Natriuretic peptide B mass conc (Bld) 17.5 pg/mL Invalid Interpretation Code 0-100 [employer] [facility] Work Phone: [phone]) Office Visiton 09-22-2014 cardiac risk group C Invalid Interpretation Code [employer] Work Phone: [phone] General cardiovascular disease 10Y risk [#] [place] N/A Invalid Interpretation Code [employer] [facility] Work Phone: [phone]) Clinical Lists Update: 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 03-29-2014 Cholesterol in LDL/Cholesterol in HDL mass ratio 1.41 Invalid Interpretation Code [facility] Work Phone: [phone] Cholesterol.total/Cho lesterol in HDL mass ratio 3.33 {ratio} Invalid Interpretation Code [facility] Work Phone: [phone]) Lab Report: [facility] Anion gap 6 mmol/L Normal 5-15 [facility] Work Phone: [phone] Anion gap molar conc 6 mmol/L Normal 5-[address] [facility] [address] [facility] Work Phone: [phone] Calcium mass conc 9.1 mg/dL Normal 8.5-10.1 [facility] Work Phone: [phone] Chloride molar conc 105 mmol/L Normal 98-107 [facility] Work Phone: [phone] CO2 29.0 mmol/L Normal 21.0-32.0 [facility] Work Phone: [phone] CO2 ppres (BldV) 29.0 mmol/L Normal 21.0-32.0 [facility] Work Phone: [phone] Creatinine mass conc 1.2 mg/dL Normal 0.8-1.[address] [facility] [address] [facility] Work Phone: [phone] eGFR (non-black) 81 mL/min/{1.73_m2} Normal >60 [facility] Work Phone: [phone] GFR/1.73 sq M predicted among non-blacks MDRD vol rate/area (S/P/Bld) 67 mL/min/{1.73_m2} Normal >60 [facility] Work Phone: [phone] GFRAA 81 mL/min Normal >60 [facility] Work Phone: [phone] Glucose 89 mg/dL Normal 70-110 [facility] Work Phone: [phone] Glucose mass conc 89 mg/dL Normal 70-110 [facility] Work Phone: [phone] Potassium molar conc 4.2 mmol/L Normal 3.5-5.[address] [facility] [address] [facility] Work Phone: [phone] Sodium molar conc 140 mmol/L Normal 136-145 [employer] Work Phone: [phone] Urea nitrogen mass conc 17 mg/dL Normal 7-18 [employer] Work Phone: [phone] Urea nitrogen/Creatinine mass ratio 14.2 RATIO Normal 10-20 [employer] Work Phone: [phone]) Lab Report: CBCon 12-04-2013 Erythrocytes (RBC) 5.61 10*6/uL Normal 4.6-6.2 [employer] Work Phone: [phone] Hematocrit (HCT) 47.4 % Normal 40-54 [employer] Work Phone: [phone] Hematocrit Volume Fraction (Bld) 47.4 % Normal 40-54 [facility] [employer] Work Phone: [phone] Hemoglobin mass conc (Bld) 16.7 g/dL High 13.0-16.5 [facility] [employer] Work Phone: [phone] MCH 29.8 pg Normal 27.0-32.0 [employer] Work Phone: [phone] MCH Entitic mass (RBC) 29.8 pg Normal 27.0-32.0 [employer] Work Phone: [phone] MCHC 35.2 G/GL Normal 32-36 [employer] Work Phone: [phone] MCHC mass conc (RBC) 35.2 G/GL Normal 32-36 [employer] Work Phone: [phone] MCV 84.5 fL Normal 80-94 [employer] Work Phone: [phone] MCV Entitic volume (RBC) 84.5 fL Normal 80-94 [facility] Work Phone: [phone] Platelet mean volume Entitic volume (Bld) 11.5 fL Normal 6.2-12.0 [employer] Work Phone: [phone] Platelets 123 10*3/mm3 Low 150-450 [employer] Work Phone: [phone] Platelets #/vol (Bld) 123 10*3/mm3 Low 150-450 [facility] [employer] Work Phone: [phone] PMV by Stephen-Kurt 11.5 fL Normal 6.2-12.0 [facility] Work Phone: [phone] RBC #/vol (Bld) 5.61 10*6/uL Normal 4.6-6.2 [facility] Work Phone: [phone] WBC #/vol (Bld) 6.4 10*3/uL Normal 4.4-11.0 [facility] Work Phone: [phone] WBC (Leukocytes) 6.4 10*3/uL Normal 4.4-11.0 [facility] Work Phone: [phone] Lab Report: PTon 12-04-2013 INR Coag RelTime (PPP) 1.6 {INR} Normal [facility] Work Phone: [phone] INR in blood by coagulation 1.6 {INR} Normal [facility] Work Phone: [phone] prothrombin time, actual/normal, ratio 18.2 SECONDS High 11.9-14.4 [facility] Work Phone: [phone] PTP 18.2 SECONDS High 11.9-14.4 [facility] Work Phone: [phone] Replaced Document: Alexa Nik ROCA Observationson 10-30-2013 Pulse (Heart Rate) 396 ms Invalid Interpretation Code [facility] Work Phone: [phone] Lab Report: Ordered by Dr. Nik alfaro 09-20-2012 Erythrocyte distribution width Ratio (RBC) 13.4 % [facility] Work Phone: [phone] MCHC 35.5 % Invalid Interpretation Code [facility] Work Phone: [phone] MCHC mass conc (RBC) 35.5 % [facility] Work Phone: [phone] RDW-CA 13.4 % Invalid Interpretation Code [facility] Work Phone: [phone] Lab Report: PTTon 09-03-2012 aPTT Coag time (Bld) 28.8 s Normal 24.1-36.[address] [address] [facility] Work Phone: [phone] Office Visiton 07-18-2012 Alcoholism counseling (procedure) no Invalid Interpretation Code [facility] Work Phone: Protein mass conc no [facility] Work Phone: [phone] Vital Signs Date Time Vital Sign Value Performing Clinician Darren campoverde 11-18-2024 11:23-0400 Body temperature 99.19 [degF] Susan Lorenzoagen [employer] Work Phone: [facility] 11-18-2024 11:23-0400 Diastolic blood pressure 80 mm[Hg] Susan Haagen [employer] Work Phone: [facility] 11-18-2024 11:23-0400 Heart rate 72 /min Susan Haagen [employer] Work Phone: [facility] 11-18-2024 11:23-0400 Respiratory rate 16 /min Susan Kerr [employer] Work Phone: [facility] 11-18-2024 11:23-0400 SaO2% (BldA) [Mass fraction] 95 % Susan Kerr [employer] Work Phone: [facility] 11-18-2024 11:23-0400 Systolic blood pressure 158 mm[Hg] Susan Hadeloris [employer] Work Phone: [facility] 10-28-2024 13:21-0400 Body temperature 97 [degF] Dr. Jagjit Cheema MD Work Phone: [facility] 10-28-2024 13:21-0400 Diastolic blood pressure 83 mm[Hg] Dr. Jagjit Cheema MD Work Phone: [facility] 10-28-2024 13:21-0400 Heart rate 66 /min Dr. Jagjit Cheema MD Work Phone: [facility] 10-28-2024 13:21-0400 Respiratory rate 24 /min Dr. Jagjit Cheema MD Work Phone: [facility] 10-28-2024 13:21-0400 SaO2% (BldA) [Mass fraction] 97 % Dr. Jagjit Cheema MD Work Phone: [facility] 10-28-2024 13:21-0400 Systolic blood pressure 156 mm[Hg] Dr. Jagjit Cheema MD Work Phone: [facility] 10-28-2024 09:36-0400 Body height 195.[address] Jagjit Cheema MD Work Phone: [facility] 10-28-2024 09:36-0400 Body mass index (BMI) [Ratio] 40.4 kg/m2 Dr. Jagjit Cheema MD Work Phone: [facility] 10-28-2024 09:36-0400 Body weight 154.[address] Jagjit Cheema MD Work Phone: [facility] 10-21-2024 09:24-0400 Diastolic blood pressure 70 mm[Hg] Jagjit Cheema MD Work Phone: [facility] 10-21-2024 09:24-0400 Systolic blood pressure 138 mm[Hg] Jagjit Cheema MD Work Phone: [facility] 10-21-2024 08:41-0400 Body height 195.6 cm Jagjit Cheema MD Work Phone: [facility] 10-21-2024 08:41-0400 Body mass index (BMI) [Ratio] 39.73 kg/m2 Jagjit Cheema MD Work Phone: [facility] 10-21-2024 08:41-0400 Body weight 151.96 kg Jagjit Cheema MD Work Phone: [facility] 10-21-2024 08:41-0400 Heart rate 78 /min Jagjit Cheema MD Work Phone: [facility] 10-21-2024 08:41-0400 SaO2% (BldA) [Mass fraction] 98 % Jagjit Cheema MD Work Phone: [facility] 09-23-2024 09:40-0400 Body mass index (BMI) [Ratio] 39.73 kg/m2 Jagjit Cheema MD Work Phone: [facility] 09-23-2024 09:40-0400 Body weight 151.96 kg Jagjit Cheema MD Work Phone: [facility] 09-23-2024 09:40-0400 Diastolic blood pressure 78 mm[Hg] Jagjit Cheema MD Work Phone: [facility] 09-23-2024 09:40-0400 Heart rate 82 /min Jagjit Cheema MD Work Phone: [facility] 09-23-2024 09:40-0400 SaO2% (BldA) [Mass fraction] 97 % Jagjit Cheema MD Work Phone: [facility] 09-23-2024 09:40-0400 Systolic blood pressure 170 mm[Hg] Jagjit Cheema MD Work Phone: [facility] 09-11-2024 08:25-0400 Body height 195.6 cm Jagjit Cheema MD Work Phone: [facility] 09-11-2024 08:25-0400 Body mass index (BMI) [Ratio] 39.73 kg/m2 Jagjit Cheema MD Work Phone: [facility] 09-11-2024 08:25-0400 Body weight 151.96 kg Jagjit Cheema MD Work Phone: [facility] 09-11-2024 08:25-0400 Diastolic blood pressure 70 mm[Hg] Jagjit Cheema MD Work Phone: [facility] 09-11-2024 08:25-0400 Heart rate 77 /min Jagjit Cheema MD Work Phone: [facility] 09-11-2024 08:25-0400 SaO2% (BldA) [Mass fraction] 99 % Jagjit Cheema MD Work Phone: [facility] 09-11-2024 08:25-0400 Systolic blood pressure 148 mm[Hg] Jagjit Cheema MD Work Phone: [facility] 08-16-2024 10:33-0500 Body mass index (BMI) [Ratio] 39.1 kg/m2 Dr. Jagjit Cheema MD Work Phone: [facility] 08-16-2024 10:33-0500 Body weight 149.[address] Jagjit Cheema MD Work Phone: [facility] 08-16-2024 10:33-0500 Diastolic blood pressure 84 mm[Hg] Dr. Jagjit Cheema MD Work Phone: [facility] 08-16-2024 10:33-0500 Heart rate 72 /min Dr. Jagjit Cheema MD Work Phone: [facility] 08-16-2024 10:33-0500 Respiratory rate 16 /min Dr. Jagjit Cheema MD Work Phone: [facility] 08-16-2024 10:33-0500 Systolic blood pressure 148 mm[Hg] Dr. Jagjit Cheema MD Work Phone: [facility] 07-08-2024 09:34-0500 Diastolic blood pressure 80 mm[Hg] Jagjit Cheema MD Work Phone: [facility] 07-08-2024 09:34-0500 Systolic blood pressure 136 mm[Hg] Jagjit Cheema MD Work Phone: [facility] 07-08-2024 09:06-0500 Body height 195.6 cm Jagjit Cheema MD Work Phone: [facility] 07-08-2024 09:06-0500 Body mass index (BMI) [Ratio] 39.13 kg/m2 Jagjit Cheema MD Work Phone: [facility] 07-08-2024 09:06-0500 Body weight 149.69 kg Jagjit Cheema MD Work Phone: [facility] 07-08-2024 09:06-0500 Heart rate 87 /min Jagjit Cheema MD Work Phone: [facility] 06-24-2024 09:03-0500 Body mass index (BMI) [Ratio] 39.13 kg/m2 Jagjit Cheema MD Work Phone: [facility] 06-24-2024 09:03-0500 Body temperature 97.2 [degF] Jagjit Cheema MD Work Phone: [facility] 06-24-2024 09:03-0500 Body weight 149.69 kg Jagjit Cheema MD Work Phone: [facility] 06-24-2024 09:03-0500 Diastolic blood pressure 72 mm[Hg] Jagjit Cheema MD Work Phone: [facility] 06-24-2024 09:03-0500 Heart rate 88 /min Jagjit Cheema MD Work Phone: [facility] 06-24-2024 09:03-0500 SaO2% (BldA) [Mass fraction] 98 % Jagjit Cheema MD Work Phone: [facility] 06-24-2024 09:03-0500 Systolic blood pressure 140 mm[Hg] Jagjit Cheema MD Work Phone: [facility] 06-17-2024 14:22-0500 Body mass index (BMI) [Ratio] 39.73 kg/m2 Jagjit Cheema MD Work Phone: [facility] 06-17-2024 14:22-0500 Body temperature 100.09 [degF] Jagjit Cheema MD Work Phone: [facility] 06-17-2024 14:22-0500 Body weight 151.96 kg Jagjit Cheema MD Work Phone: [facility] 06-17-2024 14:22-0500 Diastolic blood pressure 92 mm[Hg] Jagjit Cheema MD Work Phone: [facility] 06-17-2024 14:22-0500 Heart rate 79 /min Jagjit Cheema MD Work Phone: [facility] 06-17-2024 14:22-0500 SaO2% (BldA) [Mass fraction] 99 % Jagjit Cheema MD Work Phone: [facility] 06-17-2024 14:22-0500 Systolic blood pressure 152 mm[Hg] Jagjit Cheema MD Work Phone: [facility] 06-13-2024 15:51-0500 Body mass index (BMI) [Ratio] 40.02 kg/m2 Carolann Lucas APRN.CNP Work Phone: [facility] 06-13-2024 15:51-0500 Body temperature 97.7 [degF] Carolann Lance [employer] Work Phone: [facility] 06-13-2024 15:51-0500 Body weight 153.1 kg Carolann Lance [employer] Work Phone: [facility] 06-13-2024 15:51-0500 Diastolic blood pressure 74 mm[Hg] Carolann Lance [employer] Work Phone: [facility] 06-13-2024 15:51-0500 Heart rate 90 /min Carolann Lance [employer] Work Phone: [facility] 06-13-2024 15:51-0500 Respiratory rate 16 /min Carolann Lance [employer] Work Phone: [facility] 06-13-2024 15:51-0500 SaO2% (BldA) [Mass fraction] 97 % Carolann Lance [employer] Work Phone: [facility] 06-13-2024 15:51-0500 Systolic blood pressure 136 mm[Hg] Carolann Lance [employer] Work Phone: [facility] 04-25-2024 13:18-0500 Body mass index (BMI) [Ratio] 39.48 kg/m2 Lisa Podlogar [employer] Work Phone: [facility] 04-25-2024 13:18-0500 Body weight 151 kg Lisa Podlogar [employer] Work Phone: [facility] 04-25-2024 13:18-0500 Diastolic blood pressure 78 mm[Hg] Lisa Podlogar [employer] Work Phone: [facility] 04-25-2024 13:18-0500 Heart rate 78 /min Lisa Podlogar [employer] Work Phone: [facility] 04-25-2024 13:18-0500 SaO2% (BldA) [Mass fraction] 97 % Lisa Podlogar [employer] Work Phone: [facility] 04-25-2024 13:18-0500 Systolic blood pressure 140 mm[Hg] Lisa Javed APRN.EDGE POLISHER Work Phone: [facility] 04-10-2024 11:23-0400 Body mass index (BMI) [Ratio] 38.99 kg/m2 Rojas Dominguez MD Work Phone: [facility] 04-10-2024 11:23-0400 Body temperature 97.7 [degF] Rojas Dominguez MD Work Phone: [facility] 04-10-2024 11:23-0400 Body weight 149.14 kg Rojas Dominguez MD Work Phone: [facility] 04-10-2024 11:23-0400 Diastolic blood pressure 72 mm[Hg] Rojas Dominguez MD Work Phone: [facility] 04-10-2024 11:23-0400 Heart rate 73 /min Rojas Dominguez MD Work Phone: [facility] 04-10-2024 11:23-0400 Respiratory rate 18 /min Rojas Dominguez MD Work Phone: [facility] 04-10-2024 11:23-0400 SaO2% (BldA) [Mass fraction] 98 % Rojas Dominguez MD Work Phone: [facility] 04-10-2024 11:23-0400 Systolic blood pressure 130 mm[Hg] Rojas Dominguez MD Work Phone: [facility] 03-13-2024 09:03-0400 Body mass index (BMI) [Ratio] 39.01 kg/m2 Jagjit Cheema MD Work Phone: [facility] 03-13-2024 09:03-0400 Body weight 149.23 kg Jagjit Cheema MD Work Phone: [facility] 03-13-2024 09:03-0400 Diastolic blood pressure 72 mm[Hg] Jagjit Cheema MD Work Phone: [facility] 03-13-2024 09:03-0400 Heart rate 71 /min Jagjit Cheema MD Work Phone: [facility] 03-13-2024 09:03-0400 SaO2% (BldA) [Mass fraction] 98 % Jagjit Cheema MD Work Phone: [facility] 03-13-2024 09:03-0400 Systolic blood pressure 134 mm[Hg] Jagjit Cheema MD Work Phone: [facility] 03-08-2024 09:43-0400 Body mass index (BMI) [Ratio] 38.69 kg/m2 Jagjit Cheema MD Work Phone: [facility] 03-08-2024 09:43-0400 Body temperature 99.1 [degF] Jagjit Cheema MD Work Phone: [facility] 03-08-2024 09:43-0400 Body weight 148 kg Jagjit Cheema MD Work Phone: [facility] 03-08-2024 09:43-0400 Diastolic blood pressure 82 mm[Hg] Jagjit Cheema MD Work Phone: [facility] 03-08-2024 09:43-0400 Heart rate 77 /min Jagjit Cheema MD Work Phone: [facility] 03-08-2024 09:43-0400 SaO2% (BldA) [Mass fraction] 96 % Jagjit Cheema MD Work Phone: [facility] 03-08-2024 09:43-0400 Systolic blood pressure 148 mm[Hg] Jagjit Cheema MD Work Phone: [facility] 12-29-2023 08:00-0400 Body height 195.6 cm Jagjit Cheema MD Work Phone: [facility] 12-29-2023 08:00-0400 Body mass index (BMI) [Ratio] 38.9 kg/m2 Jagjit Cheema MD Work Phone: [facility] 12-29-2023 08:00-0400 Body weight 148.78 kg Jagjit Cheema MD Work Phone: [facility] 12-29-2023 08:00-0400 Diastolic blood pressure 78 mm[Hg] Jagjit Cheema MD Work Phone: [facility] 12-29-2023 08:00-0400 Heart rate 79 /min Jagjit Cheema MD Work Phone: [facility] 12-29-2023 08:00-0400 SaO2% (BldA) [Mass fraction] 97 % Jagjit Cheema MD Work Phone: [facility] 12-29-2023 08:00-0400 Systolic blood pressure 176 mm[Hg] Jagjit Cheema MD Work Phone: [facility] 12-13-2023 09:30-0400 Body temperature 98.71 [degF] Susan Haagen [employer] Work Phone: [facility] 12-13-2023 09:30-0400 Diastolic blood pressure 86 mm[Hg] Susan Haagen [employer] Work Phone: [facility] 12-13-2023 09:30-0400 Heart rate 64 /min Susan Haagen [employer] Work Phone: [facility] 12-13-2023 09:30-0400 Respiratory rate 16 /min Susan Haagen [employer] Work Phone: [facility] 12-13-2023 09:30-0400 SaO2% (BldA) [Mass fraction] 97 % Susan Haagen [employer] Work Phone: [facility] 12-13-2023 09:30-0400 Systolic blood pressure 140 mm[Hg] Susan Haagen [employer] Work Phone: [facility] 11-29-2023 14:10-0400 Diastolic blood pressure 84 mm[Hg] Jagjit Cheema MD Work Phone: [facility] 11-29-2023 14:10-0400 Systolic blood pressure 136 mm[Hg] Jagjit Cheema MD Work Phone: [facility] 11-29-2023 13:56-0400 Body mass index (BMI) [Ratio] 38.66 kg/m2 Jagjit Cheema MD Work Phone: [facility] 11-29-2023 13:56-0400 Body weight 147.87 kg Jagjit Cheema MD Work Phone: [facility] 11-29-2023 13:56-0400 Heart rate 78 /min Jagjit Cheema MD Work Phone: [facility] 11-29-2023 13:56-0400 SaO2% (BldA) [Mass fraction] 98 % Jagjit Cheema MD Work Phone: [facility] 10-16-2023 14:28-0400 Body height 195.[address] Jagjit Cheema Work Phone: [facility] 10-16-2023 14:28-0400 Body mass index (BMI) [Ratio] 39.2 kg/m2 Dr. Jagjit Cheema Work Phone: [facility] 10-16-2023 14:28-0400 Body weight 150.[address] Jagjit Cheema Work Phone: [facility] 10-16-2023 14:28-0400 Diastolic blood pressure 71 mm[Hg] Dr. Jagjit Cheema Work Phone: [facility] 10-16-2023 14:28-0400 Heart rate 66 /min Dr. Jagjit Cheema Work Phone: [facility] 10-16-2023 14:28-0400 Respiratory rate 16 /min Dr. Jagjit Cheema Work Phone: [facility] 10-16-2023 14:28-0400 Systolic blood pressure 147 mm[Hg] Dr. Jagjit Cheema Work Phone: [facility] 09-05-2023 16:04-0400 Body height 195.6 cm Jagjit Cheema MD Work Phone: [facility] 09-05-2023 16:04-0400 Body weight 151.05 kg Jagjit Cheema MD Work Phone: [facility] 09-05-2023 16:04-0400 Diastolic blood pressure 68 mm[Hg] Jagjit Cheema MD Work Phone: [facility] 09-05-2023 16:04-0400 Heart rate 72 /min Jagjit Cheema MD Work Phone: [facility] 09-05-2023 16:04-0400 SaO2% (BldA) [Mass fraction] 96 % Jagjit hCeema MD Work Phone: [facility] 09-05-2023 16:04-0400 Systolic blood pressure 138 mm[Hg] Jagjit Cheema MD Work Phone: [facility] 07-05-2023 13:02-0500 Body height 195.[address] Jagjit Cheema Work Phone: [facility] 07-05-2023 13:02-0500 Body mass index (BMI) [Ratio] 40.4 kg/m2 Dr. Jagjit Cheema Work Phone: [facility] 07-05-2023 13:02-0500 Body weight 154.[address] Jagjit Cheema Work Phone: [facility] 07-05-2023 13:02-0500 Diastolic blood pressure 71 mm[Hg] Dr. Jagjit Cheema Work Phone: [facility] 07-05-2023 13:02-0500 Heart rate 70 /min Dr. Jagjit Cheema Work Phone: [facility] 07-05-2023 13:02-0500 Respiratory rate 18 /min Dr. Jagjit Cheema Work Phone: [facility] 07-05-2023 13:02-0500 Systolic blood pressure 145 mm[Hg] Dr. Jagjit Cheema Work Phone: [facility] 01-23-2023 17:22-0400 Diastolic blood pressure 70 mm[Hg] Jagjit Cheema MD Work Phone: [facility] 01-23-2023 17:22-0400 Systolic blood pressure 138 mm[Hg] Jagjit Cheema MD Work Phone: [facility] 01-23-2023 16:52-0400 Body height 195.6 cm Jagjit Cheema MD Work Phone: [facility] 01-23-2023 16:52-0400 Body weight 148.96 kg Jagjit Cheema MD Work Phone: [facility] 01-23-2023 16:52-0400 Heart rate 64 /min Jagjit Cheema MD Work Phone: [facility] 01-23-2023 16:52-0400 SaO2% (BldA) [Mass fraction] 97 % Jagjit Cheema MD Work Phone: [facility] 12-19-2022 15:34-0400 Body height 195.6 cm Jagjit Cheema MD Work Phone: [facility] 12-19-2022 15:34-0400 Body weight 149.41 kg Jagjit Cheema MD Work Phone: [facility] 12-19-2022 15:34-0400 Diastolic blood pressure 68 mm[Hg] Jagjit Cheema MD Work Phone: [facility] 12-19-2022 15:34-0400 Heart rate 64 /min Jagjit Cheema MD Work Phone: [facility] 12-19-2022 15:34-0400 SaO2% (BldA) [Mass fraction] 97 % Jagjit Cheema MD Work Phone: [facility] 12-19-2022 15:34-0400 Systolic blood pressure 138 mm[Hg] Jagjit Cheema MD Work Phone: [facility] 12-16-2022 12:54-0400 Body temperature 98.2 [degF] Dr. Jagjit Cheema Work Phone: [facility] 12-16-2022 12:54-0400 Diastolic blood pressure 68 mm[Hg] Dr. Jagjit Cheema Work Phone: [facility] 12-16-2022 12:54-0400 Heart rate 68 /min Dr. Jagjit Cheema Work Phone: 3(424)272-697125 [place] [address] 12-16-2022 12:54-0400 Respiratory rate 18 /min Dr. Jagjit Cheema Work Phone: 4(868)579-419725 [place] [address] 12-16-2022 12:54-0400 SaO2% (BldA) [Mass fraction] 100 % Dr. Jagjit Cheema Work Phone: 2(598)173-873325 [place] [address] 12-16-2022 12:54-0400 Systolic blood pressure 131 mm[Hg] Dr. Jagjit Cheema Work Phone: 7(682)069-401425 [place] [address] 12-16-2022 06:00-0400 Body mass index (BMI) [Ratio] 38.2 kg/m2 Dr. Jagjit Cheema Work Phone: 5(536)433-147325 [place] [address] 12-16-2022 06:00-0400 Body weight 146.[address] Jagjit Cheema Work Phone: 7(693)443-765325 [place] [address] 12-15-2022 23:33-0400 Body height 195.[address] Jagjit Cheema Work Phone: 6(072)189-751325 [place] [address] 12-15-2022 23:00-0400 Body temperature 100.3 [degF] Dr. Jagjit Cheema Work Phone: 4(438)066-034325 [place] [address] 12-15-2022 23:00-0400 Diastolic blood pressure 68 mm[Hg] Dr. Jagjit Cheema Work Phone: 2(148)168-619925 [place] [address] 12-15-2022 23:00-0400 Heart rate 89 /min Dr. Jagjit Cheema Work Phone: 3(011)116-967625 [place] [address] 12-15-2022 23:00-0400 Respiratory rate 20 /min Dr. Jagjit Cheema Work Phone: 2(996)733-004725 [place] [address] 12-15-2022 23:00-0400 SaO2% (BldA) [Mass fraction] 97 % Dr. Jagjit Cheema Work Phone: 8(252)051-293825 [place] [address] 12-15-2022 23:00-0400 Systolic blood pressure 136 mm[Hg] Dr. Jagjit Cheema Work Phone: 7(193)908-688925 [place] [address] 12-15-2022 18:54-0400 Body height 195.[address] Jagjit Cheema Work Phone: [facility] 12-15-2022 18:54-0400 Body mass index (BMI) [Ratio] 38.8 kg/m2 Dr. Jagjit Cheema Work Phone: [facility] 12-15-2022 18:54-0400 Body weight 148.[address] Jagjit Cheema Work Phone: 8(105)292-766225 [place] [address] 12-14-2022 20:51-0400 Body temperature 98.4 [degF] Dr. Jagjit Cheema Work Phone: 1(907)381-267925 [place] [address] 12-14-2022 20:51-0400 Diastolic blood pressure 70 mm[Hg] Dr. Jagjit Cheema Work Phone: 1(283)949-663225 [place] [address] 12-14-2022 20:51-0400 Heart rate 78 /min Dr. Jagjit Cheema Work Phone: 9(736)854-935125 [place] [address] 12-14-2022 20:51-0400 Respiratory rate 16 /min Dr. Jagjit Cheema Work Phone: 5(420)983-241225 [place] [address] 12-14-2022 20:51-0400 SaO2% (BldA) [Mass fraction] 97 % Dr. Jagjit Cheema Work Phone: 5(385)685-440625 [place] [address] 12-14-2022 20:51-0400 Systolic blood pressure 136 mm[Hg] Dr. Jagjit Cheema Work Phone: 2(046)357-384625 [place] [address] 12-14-2022 16:47-0400 Body mass index (BMI) [Ratio] 38 kg/m2 Dr. Jagjit Cheema Work Phone: [facility] 12-14-2022 16:47-0400 Body weight 145.[address] Jagjit Cheema Work Phone: [facility] 12-14-2022 16:17-0400 Body temperature 100.9 [degF] Jagjit Cheema MD Work Phone: [facility] 12-14-2022 16:17-0400 Body weight 145.69 kg Jagjit Cheema MD Work Phone: [facility] 12-14-2022 16:17-0400 Diastolic blood pressure 60 mm[Hg] Jagjit Cheema MD Work Phone: [facility] 12-14-2022 16:17-0400 Heart rate 80 /min Jagjit Cheema MD Work Phone: [facility] 12-14-2022 16:17-0400 SaO2% (BldA) [Mass fraction] 99 % Jagjit Cheema MD Work Phone: [facility] 12-14-2022 16:17-0400 Systolic blood pressure 130 mm[Hg] Jagjit Cheema MD Work Phone: [facility] 11-07-2022 10:11-0400 Diastolic blood pressure 78 mm[Hg] Dr. Jagjit Cheema Work Phone: [facility] 11-07-2022 10:11-0400 Systolic blood pressure 140 mm[Hg] Dr. Jagjit Cheema Work Phone: [facility] 11-07-2022 09:48-0400 Body mass index (BMI) [Ratio] 38.3 kg/m2 Dr. Jagjit Cheema Work Phone: [facility] 11-07-2022 09:48-0400 Body weight 146.[address] Jagjit Cheema Work Phone: [facility] 11-07-2022 09:48-0400 Heart rate 74 /min Dr. Jagjit Cheema Work Phone: [facility] 11-07-2022 09:48-0400 Respiratory rate 16 /min Dr. Jagjit Cheema Work Phone: [facility] 10-25-2022 14:54-0400 Diastolic blood pressure 66 mm[Hg] Jagjit Cheema MD Work Phone: [facility] 10-25-2022 14:54-0400 Systolic blood pressure 130 mm[Hg] Jagjit Cheema MD Work Phone: [facility] 10-25-2022 14:29-0400 Body height 195.6 cm Jagjit Cheema MD Work Phone: [facility] 10-25-2022 14:29-0400 Body weight 147.42 kg Jagjit Cheema MD Work Phone: [facility] 10-25-2022 14:29-0400 Heart rate 78 /min Jagijt Cheema MD Work Phone: [facility] 10-25-2022 14:29-0400 SaO2% (BldA) [Mass fraction] 98 % Jagjit Cheema MD Work Phone: [facility] 09-22-2022 16:16-0400 Body temperature 98.49 [degF] Jagjit Cheema MD Work Phone: [facility] 09-22-2022 16:16-0400 Body weight 150.14 kg Jagjit Cheema MD Work Phone: [facility] 09-22-2022 16:16-0400 Diastolic blood pressure 62 mm[Hg] Jagjit Cheema MD Work Phone: [facility] 09-22-2022 16:16-0400 Heart rate 72 /min Jagjit Cheema MD Work Phone: [facility] 09-22-2022 16:16-0400 SaO2% (BldA) [Mass fraction] 97 % Jagjit Cheema MD Work Phone: [facility] 09-22-2022 16:16-0400 Systolic blood pressure 146 mm[Hg] Jagjit Cheema MD Work Phone: [facility] 08-09-2022 11:17-0500 Body height 195.[address] Jagjit Cheema Work Phone: [facility] 08-09-2022 11:17-0500 Body weight 149.[address] aJgjit Cheema Work Phone: [facility] 08-08-2022 11:05-0500 Body mass index (BMI) [Ratio] 39.1 kg/m2 Dr. Jagjit Cheema Work Phone: [facility] 08-03-2022 08:26-0500 Body mass index (BMI) [Ratio] 39.1 kg/m2 Dr. Jagjit Cheema Work Phone: 6(313)852-905425 [place] [address] 08-03-2022 08:26-0500 Body weight 149.[address] Jagjit Cheema Work Phone: 0(258)274-681725 [place] [address] 08-03-2022 08:26-0500 Diastolic blood pressure 76 mm[Hg] Dr. Jagjit Cheema Work Phone: 4(633)491-220425 [place] [address] 08-03-2022 08:26-0500 Heart rate 65 /min Dr. Jagjit Cheema Work Phone: 2(580)748-706725 [place] [address] 08-03-2022 08:26-0500 Respiratory rate 18 /min Dr. Jagjit Cheema Work Phone: 2(722)509-706025 [place] [address] 08-03-2022 08:26-0500 SaO2% (BldA) [Mass fraction] 98 % Dr. Jagjit Cheema Work Phone: 8(082)086-890025 [place] [address] 08-03-2022 08:26-0500 Systolic blood pressure 136 mm[Hg] Dr. Jagjit Cheema Work Phone: 0(645)725-046025 [place] [address] 06-16-2022 13:29-0500 Body height 195.[address] Jagjit Cheema Work Phone: 9(805)736-312225 [place] [address] Work Phone: 06-16-2022 13:29-0500 Body mass index (BMI) [Ratio] 38.6 kg/m2 Dr. Jagjit Cheema Work Phone: 5(247)297-431625 [place] [address] 06-16-2022 13:29-0500 Body weight 147.[address] Jagjit Cheema Work Phone: 4(803)657-946225 [place] [address] 06-16-2022 13:29-0500 Diastolic blood pressure 77 mm[Hg] Dr. Jagjit Cheema Work Phone: 4(480)420-371425 [place] [address] 06-16-2022 13:29-0500 Heart rate 67 /min Dr. Jagjit Cheema Work Phone: 0(410)849-672925 [place] [address] 06-16-2022 13:29-0500 Respiratory rate 20 /min Dr. Jagjit Cheema Work Phone: 8(180)610-081025 [place] [address] 06-16-2022 13:29-0500 SaO2% (BldA) [Mass fraction] 100 % Dr. Jagjit Cheema Work Phone: 6(019)695-529725 [place] [address] 06-16-2022 13:29-0500 Systolic blood pressure 147 mm[Hg] Dr. Jagjit Cheema Work Phone: 0(397)308-157925 [place] [address] 05-07-2022 14:37-0500 Diastolic blood pressure 94 mm[Hg] Dr. Jagjit Cheema Work Phone: 5(889)516-779225 [place] [address] 05-07-2022 14:37-0500 Heart rate 65 /min Dr. Jagjit Cheema Work Phone: 3(086)555-301325 [place] [address] 05-07-2022 14:37-0500 Respiratory rate 16 /min Dr. Jagjit Cheema Work Phone: 9(165)021-691925 [place] [address] 05-07-2022 14:37-0500 SaO2% (BldA) [Mass fraction] 97 % Dr. Jagjit Cheema Work Phone: 8(915)626-853325 [place] [address] 05-07-2022 14:37-0500 Systolic blood pressure 148 mm[Hg] Dr. Jagjit Cheema Work Phone: 9(927)506-575025 [place] [address] 05-07-2022 11:28-0500 Body height 195.[address] Jagjit Cheema Work Phone: 5(791)858-054225 [place] [address] Work Phone: 05-07-2022 11:28-0500 Body mass index (BMI) [Ratio] 39.1 kg/m2 Dr. Jagjit Cheema Work Phone: 6(855)236-374125 [place] [address] 05-07-2022 11:28-0500 Body temperature 97.8 [degF] Dr. Jagjit Cheema Work Phone: 5(656)501-217225 [place] [address] 05-07-2022 11:28-0500 Body weight 149.[address] Jagjit Cheema Work Phone: 6(522)665-049825 [place] [address] 04-29-2022 10:06-0500 Body height 195.[address] Jagjit Cheema Work Phone: [facility] Work Phone: 04-29-2022 10:06-0500 Body mass index (BMI) [Ratio] 38.2 kg/m2 Dr. Jagjit Cheema Work Phone: 9(180)412-688625 [place] [address] 04-29-2022 10:06-0500 Body weight 146.[address] Jagjit Cheema Work Phone: 7(016)195-298125 [place] [address] 04-29-2022 10:06-0500 Diastolic blood pressure 66 mm[Hg] Dr. Jagjit Cheema Work Phone: 2(659)047-851025 [place] [address] 04-29-2022 10:06-0500 Heart rate 92 /min Dr. Jagjit Cheema Work Phone: 8(718)010-959025 [place] [address] 04-29-2022 10:06-0500 Respiratory rate 16 /min Dr. Jagjit Cheema Work Phone: 5(194)117-458525 [place] [address] 04-29-2022 10:06-0500 Systolic blood pressure 140 mm[Hg] Dr. Jagjit Cheema Work Phone: 1(296)487-647925 [place] [address] 02-12-2022 14:28-0400 Diastolic blood pressure 77 mm[Hg] Dr. Jagjit Cheema Work Phone: 0(129)801-992125 [place] [address] Work Phone: 02-12-2022 14:28-0400 Heart rate 60 /min Dr. Jagjit Cheema Work Phone: [facility] Work Phone: 02-12-2022 14:28-0400 Respiratory rate 18 /min Dr. Jagjit Cheema Work Phone: [facility] Work Phone: 02-12-2022 14:28-0400 SaO2% (BldA) [Mass fraction] 100 % Dr. Jagjit Cheema Work Phone: [facility] Work Phone: 02-12-2022 14:28-0400 Systolic blood pressure 149 mm[Hg] Dr. Jagjit Cheema Work Phone: [facility] Work Phone: 02-12-2022 11:29-0400 Body height 195.[address] Jagjit Cheema Work Phone: [facility] Work Phone: 02-12-2022 11:29-0400 Body mass index (BMI) [Ratio] 38.5 kg/m2 Dr. Jagjit Cheema Work Phone: [facility] Work Phone: 02-12-2022 11:29-0400 Body temperature 98.2 [degF] Dr. Jagjit Cheema Work Phone: [facility] Work Phone: 02-12-2022 11:29-0400 Body weight 147.[address] Jagjit Cheema Work Phone: [facility] Work Phone: 02-12-2022 10:50-0400 Body temperature 98.2 [degF] Carolann Lance [employer] Work Phone: [facility] 02-12-2022 10:50-0400 Body weight 147.42 kg Carolann Lance [employer] Work Phone: [facility] 02-12-2022 10:50-0400 Diastolic blood pressure 80 mm[Hg] Carolann Lance [employer] Work Phone: [facility] 02-12-2022 10:50-0400 Heart rate 72 /min Carolann Lance [employer] Work Phone: [facility] 02-12-2022 10:50-0400 Respiratory rate 16 /min Carolann Lance [employer] Work Phone: [facility] 02-12-2022 10:50-0400 SaO2% (BldA) [Mass fraction] 98 % Carolann Lance [employer] Work Phone: [facility] 02-12-2022 10:50-0400 Systolic blood pressure 152 mm[Hg] Carolann Lance [employer] Work Phone: [facility] 11-23-2021 08:56-0400 Body height 195.[address] Jagjit Cheema Work Phone: [facility] Work Phone: 11-23-2021 08:56-0400 Body mass index (BMI) [Ratio] 38.5 kg/m2 Dr. Jagjit Cheema Work Phone: [facility] Work Phone: 11-23-2021 08:56-0400 Body weight 147.[address] Jagjit Cheema Work Phone: [facility] Work Phone: 11-23-2021 08:56-0400 Diastolic blood pressure 75 mm[Hg] Dr. Jagjit Cheema Work Phone: [facility] Work Phone: 11-23-2021 08:56-0400 Heart rate 65 /min Dr. Jagjit Cheema Work Phone: [facility] Work Phone: 11-23-2021 08:56-0400 Respiratory rate 18 /min Dr. Jagjit Cheema Work Phone: [facility] Work Phone: 11-23-2021 08:56-0400 Systolic blood pressure 152 mm[Hg] Dr. Jagjit Cheema Work Phone: [facility] Work Phone: 10-20-2021 08:31-0400 Body mass index (BMI) [Ratio] 38.9 kg/m2 Dr. Jagjit Cheema Work Phone: [facility] Work Phone: 10-20-2021 08:31-0400 Body weight 149.[address] Jagjit Cheema Work Phone: [facility] Work Phone: 10-20-2021 08:31-0400 Diastolic blood pressure 78 mm[Hg] Dr. Jagjit Cheema Work Phone: [facility] Work Phone: 10-20-2021 08:31-0400 Heart rate 68 /min Dr. Jagjit Cheema Work Phone: [facility] Work Phone: 10-20-2021 08:31-0400 Respiratory rate 12 /min Dr. Jagjit Cheema Work Phone: [facility] Work Phone: 10-20-2021 08:31-0400 Systolic blood pressure 142 mm[Hg] Dr. Jagjit Cheema Work Phone: [facility] Work Phone: 10-20-2021 08:31-0400 Body height 195.[address] Jagjit Cheema Work Phone: [facility] Work Phone: 10-20-2021 08:31-0400 Body mass index (BMI) [Ratio] 38.9 kg/m2 Dr. Jagjit Cheema Work Phone: [facility] Work Phone: 10-20-2021 08:31-0400 Body weight 149.[address] Jagjit Cheema Work Phone: [facility] Work Phone: 10-20-2021 08:31-0400 Diastolic blood pressure 78 mm[Hg] Dr. Jagjit Cheema Work Phone: [facility] Work Phone: 10-20-2021 08:31-0400 Heart rate 68 /min Dr. Jagjit Cheema Work Phone: [facility] Work Phone: 10-20-2021 08:31-0400 Respiratory rate 12 /min Dr. Jagjit Cheema Work Phone: [facility] Work Phone: 10-20-2021 08:31-0400 Systolic blood pressure 142 mm[Hg] Dr. Jagjit Cheema Work Phone: [facility] Work Phone: 10-14-2021 12:04-0400 Body temperature 97.7 [degF] Kisha Wen APRN.[employer]ISHER Work Phone: [facility] 10-14-2021 12:04-0400 Body weight 148.87 kg Kisha Wen APRN.[employer] Work Phone: [facility] 10-14-2021 12:04-0400 Diastolic blood pressure 82 mm[Hg] Kisha Wen APRN.[employer] Work Phone: [facility] 10-14-2021 12:04-0400 Heart rate 64 /min Kisha Wen APRN.[employer] Work Phone: [facility] 10-14-2021 12:04-0400 Respiratory rate 20 /min Kisha Wen APRN.[employer] Work Phone: [facility] 10-14-2021 12:04-0400 SaO2% (BldA) [Mass fraction] 99 % Kisha Wen APRN.[employer] Work Phone: [facility] 10-14-2021 12:04-0400 Systolic blood pressure 150 mm[Hg] Kisha Wen APRN.[employer] Work Phone: [facility] 12-14-2016 16:00-0400 BMI (Body Mass Index) 37.68 kg/m2 [facility] Work Phone: 12-14-2016 16:00-0400 BP Diastolic 70 mm[Hg] [facility] Work Phone: 12-14-2016 16:00-0400 BP Systolic 132 mm[Hg] Erlin [facility] Work Phone: 12-14-2016 16:00-0400 Pulse (Heart Rate) 84 /min Erlin [facility] Work Phone: 12-14-2016 16:00-0400 Weight 144.[address] [facility] Work Phone: 08-17-2016 15:38-0500 Heart [...] Date Encounter Type Care Provider Facility Start: 11-18-2024 End: 11-18-2024 Subsequent hospital visit by physician Xr [facility] [place] Work Phone: Radiology Comment on above: Acute cough [R05.1] Start: 11-18-2024 ambulatory JAGJIT CHEEMA Facility :[facility] Start: 11-18-2024 End: 11-18-2024 Office outpatient visit 25 minutes Susan Kerr APRN.CNP Work Phone: [facility] Comment on above: Bronchitis (Primary Dx); SOB (shortness of breath); Acute cough Start: 11-18-2024 End: 11-18-2024 ambulatory SUSAN KERR Facility:[facility] Start: 10-28-2024 End: 10-28-2024 Emergency department patient visit Dr. Jagjit Cheema MD Work Phone: -Emergency Department Work Phone: Start: 10-28-2024 End: 10-28-2024 ambulatory Nurse Intm/Famp Triage [facility] Work Phone: Nurse Phone Triage Comment on above: Rectal Bleeding Start: 10-21-2024 End: 10-21-2024 Patient encounter procedure Jagjit Cheema MD Work Phone: [facility] [place] Comment on above: Attention deficit di sorder, unspecified type (Primary Dx); Anxiety with depression; Thrombocytopenia Start: 10-21-2024 End: 10-21-2024 ambulatory JAGJIT Tommy DENI Facility:[facility] Start: 10-18-2024 End: 10-18-2024 ambulatory JAGJIT CHEEMA Facility:[facility] Start: 10-16-2024 End: 10-16-2024 Refill Jagjit Cheema MD Work Phone: [facility] [place] Comment on above: Refill Request Start: 09-27-2024 End: 09-27-2024 Telephone encounter Jagjit Cheema MD Work Phone: [facility] [place] Comment on above: Medication Problem Start: 09-23-2024 End: 09-23-2024 ambulatory JAGJIT CHEEMA Facility:[facility] Start: 09-23-2024 End: 09-23-2024 Patient encounter procedure Jagjit Cheema MD Work Phone: [facility] [place] Comment on above: Attention deficit di sorder, unspecified type (Primary Dx); Anxiety with depression; Essential hypertension, benign Start: 09-19-2024 End: 09-19-2024 Telephone encounter Jagjit Cheema MD Work Phone: [facility] Comment on above: Patient Update Start: 09-18-2024 End: 09-18-2024 Follow-up encounter Jagjit Cheema MD Work Phone: [facility] [place] Start: 09-17-2024 End: 09-17-2024 ambulatory JAGJIT CHEEMA Facility:[facility] Start: 09-11-2024 End: 09-11-2024 ambulatory JAGJIT CHEEMA Facility:[facility] Start: 09-11-2024 End: 09-11-2024 Patient encounter procedure Jagjit Cheema MD Work Phone: [facility] [place] Comment on above: Coronary artery dise ase 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 angina pectoris (Primary Dx); Hyperlipidemia, unspecified hyperlipidemia type; Atrial flutter, unspecified type (HCC); Sleep apnea, unspecified type; Gastric intestinal metaplasia; History of pulmonary embolism; History of asthma; Fatigue, unspecified type Start: 08-16-2024 End: 08-16-2024 Patient encounter procedure [facility] Work Phone: Start: 08-16-2024 End: 08-16-2024 Refill Jagjit Cheema MD Work Phone: [facility] [place] Comment on above: Refill Request Start: 07-12-2024 End: 07-12-2024 Telephone encounter Jagjit Cheema MD Work Phone: [facility] [place] Comment on above: [employer] Start: 07-08-2024 End: 07-08-2024 Subsequent hospital visit by physician Saba [facility] [place] Work Phone: Radiology Comment on above: Bacterial pneumonia [J15.9] Start: 07-08-2024 End: 07-08-2024 ambulatory JAGJIT DENI Facility:[facility] Start: 07-08-2024 End: 07-08-2024 Patient encounter procedure Jagjit Cheema MD Work Phone: [facility] [place] Comment on above: Bacterial pneumonia (Primary Dx); Atrial flutter, unspecified type (HCC); Hyperglycemia; Hypokalemia Start: 07-01-2024 End: 07-01-2024 Refill Jagjit Cheema MD Work Phone: [facility] [place] Comment on above: Refill Request Start: 06-25-2024 End: 06-25-2024 Telephone encounter Jagjit Cheema MD Work Phone: [facility] [place] Comment on above: Results Start: 06-24-2024 End: 06-24-2024 ambulatory JAGJIT CHEEMA Facility:[facility] Start: 06-24-2024 End: 06-24-2024 Patient encounter procedure Jagjit Cheema MD Work Phone: [facility] [place] Comment on above: Bacterial pneumonia (Primary Dx); Hemoptysis; History of pulmonary embolism; SOB (shortness of breath) Start: 06-17-2024 End: 06-17-2024 Subsequent hospital visit by physician Xr [facility] [place] Work Phone: Radiology Comment on above: Bronchitis [J40] Start: 06-17-2024 End: 06-17-2024 ambulatory [facility] Facility:[facility] Start: 06-17-2024 End: 06-17-2024 Patient encounter procedure Jagjit Cheema MD Work Phone: [facility] Comment on above: Bronchitis (Primary Dx); Sinobronchitis Start: 06-17-2024 End: 06-17-2024 Telephone encounter Jagjit Cheema MD Work Phone: [facility] Comment on above: Patient Question; Or ders Results Start: 06-13-2024 End: 06-13-2024 Patient encounter procedure Carolann Lucas APRN.[employer] Work Phone: [facility] Comment on above: Rhinosinusitis (Prim rachel Dx) Start: 06-13-2024 End: 06-13-2024 ambulatory [facility] Facility:[facility] Start: 06-04-2024 End: 06-04-2024 [facility] Facility:[facility] Start: 04-26-2024 End: 04-26-2024 Telephone encounter Lisa Javed APRN.CNP Work Phone: [facility] Comment on above: Lab add on Start: 04-25-2024 End: 04-25-2024 Subsequent hospital visit by physician Xr [facility] [place] Work Phone: Radiology Comment on above: Acute cough [R05.1] Start: 04-25-2024 End: 04-25-2024 ambulatory Jagjit Cheema MD Work Phone: [facility] Comment on above: Fatigue Start: 04-25-2024 End: 04-25-2024 Patient encounter procedure Lisa Javed APRN.[employer] Work Phone: [facility] Comment on above: Dizziness (Primary D x); Acute cough; Generalized weakness; SOB (shortness of breath) Start: 04-10-2024 End: 04-10-2024 Patient encounter procedure Rojas Dominguez MD Work Phone: [facility] [place] Comment on above: Viral URI with cough (Primary Dx); Uncomplicated asthma, unspecified asthma severity, unspecified whether persistent Start: 04-10-2024 End: 04-10-2024 ambulatory ROJAS DOMINGUEZ Facility:[facility] Start: 03-13-2024 End: 03-13-2024 ambulatory JAGJIT Sanders DENI Facility:[facility] Start: 03-13-2024 End: 03-13-2024 Patient encounter procedure Jagjit Cheema MD Work Phone: [facility] [place] Comment on above: LLQ pain (Primary Dx ); RLQ abdominal pain; Diarrhea, unspecified type Start: 03-08-2024 [facility]IT [facility] Facility :[facility] Start: 03-08-2024 End: 03-08-2024 Subsequent hospital visit by physician [facility] Comment on above: Left lower quadrant abdominal pain [R10.32] Start: 03-08-2024 End: 03-08-2024 Telephone encounter Jagjit Cheema MD Work Phone: [facility] [place] Comment on above: Results Start: 03-08-2024 End: 03-08-2024 [facility] JAGJIT Sanders DENI Facility:[facility] Start: 03-08-2024 End: 03-08-2024 Patient encounter procedure Jagjit Cheema MD Work Phone: [facility] [place] Comment on above: Coronary artery dise ase 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 angina pectoris (Primary Dx); Hyperlipidemia, unspecified hyperlipidemia type; Presence of stent in coronary artery; Sleep apnea, unspecified type; Uncomplicated asthma, unspecified asthma severity, unspecified whether persistent; History of pulmonary embolism; History of TIAs; Gastroesophageal reflux disease, unspecified whether esophagitis present; Diarrhea, unspecified type; LLQ pain; Chronic RLQ pain; Left lower quadrant abdominal pain Start: 01-15-2024 End: 01-15-2024 [facility] Facility:[facility] Start: 01-09-2024 End: 01-09-2024 Office outpatient visit 10 minutes Beverley Gutierrez [employer]EDGE [employer]ISHER Work Phone: [facility] [place] Comment on above: COVID-19 (Primary Dx ) Start: 01-09-2024 End: 01-09-2024 ambulatory [facility] Facility:[facility] Start: 12-29-2023 End: 12-29-2023 ambulatory [facility] Facility:[facility] Start: 12-29-2023 End: 12-29-2023 Patient encounter procedure Jagjit Cheema MD Work Phone: [facility] [place] Comment on above: Bronchitis (Primary Dx); Atrial flutter, unspecified type (HCC); Uncomplicated asthma, unspecified asthma severity, unspecified whether persistent; Fatigue, unspecified type Start: 12-25-2023 Encounter for preprocedural laboratory examination Susan Kerr NP [facility] Start: 12-20-2023 End: 12-20-2023 ambulatory [facility] Facility:[facility] Start: 12-20-2023 End: 12-20-2023 ambulatory [facility] Facility:[facility] Start: 12-13-2023 Telephone encounter Susan puentes [employer] SERV[employer].ED[employer]ER Work Phone: [facility] [place] Comment on above: Orders Start: 12-13-2023 End: 12-13-[address] [facility] Facility:[facility] Start: 12-13-2023 End: 12-13-2023 Office outpatient visit 25 minutes Susan Kerr [employer]ED[employer]ER Work Phone: [facility] [place] Comment on above: Chronic cough (Prima ry Dx); Chest pain on breathing Start: 12-13-2023 End: 12-13-2023 ambulatory [facility] Facility:[facility] Start: 12-05-2023 ambulatory [facility] Start: 12-01-2023 Refill Jagjit Cheema MD Work Phone: [facility] [place] Comment on above: Refill Request Start: 12-01-2023 End: 12-01-2023 [facility] Facility:[facility] Start: 11-29-2023 End: 11-29-2023 Patient encounter procedure Jagjit Cheema MD Work Phone: [facility] [place] Comment on above: ADHD (attention defi cit hyperactivity disorder), combined type (Primary Dx); Need for vaccination Start: 11-29-2023 End: 11-29-2023 ambulatory JAGJIT CHEEMA Facility:[facility] Start: 11-09-2023 End: 11-09-2023 ambulatory Karl Vo Facility:[facility] Start: 10-25-2023 End: 10-25-2023 [facility] Jagjit Cheema MD Work Phone: [facility] [place] Comment on above: ADHD (attention defi cit hyperactivity disorder), combined type (Primary Dx) Start: 10-20-2023 End: 10-20-[address] Jagjit Cheema Work Phone: [facility] Start: 10-18-2023 End: 10-18-[address] Jagjit Cheema Work Phone: [facility] Work Phone: Start: 10-18-2023 End: 10-18-[address] Jagjit Cheema Work Phone: [facility]Laboratory Work Phone: Start: 10-16-2023 End: 10-16-[address] Jagjit Cheema Work Phone: [facility] Work Phone: Start: 09-07-2023 Telephone encounter Jagjit Cheema MD Work Phone: [facility] [place] Comment on above: Results Start: 09-05-2023 End: 09-05-2023 Patient encounter procedure [facility]it Cheema MD [facility] Comment on above: Bacterial sinusitis (Primary Dx); Testosterone deficiency; Coronary artery disease 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 angina pectoris; Atrial flutter, unspecified type (HCC); Hyperlipidemia, unspecified hyperlipidemia type; Sleep apnea, unspecified type; Uncomplicated asthma, unspecified asthma severity, unspecified whether persistent; Gastric intestinal metaplasia; Polyarthritis; Spinal stenosis of lumbar region with neurogenic claudication; History of pulmonary embolism; Fatigue, unspecified type; Acute constipation Start: 09-04-2023 ambulatory Jagjit Cheema MD Work Phone: [facility] Comment on above: Nexium not registere d at [facility]. Start: 07-19-2023 End: 07-19-2023 ambulatory JAGJIT CHEEMA Facility:[facility] Start: 07-13-2023 End: 07-13-[address] Jagjit Cheema Work Phone: [facility] Work Phone: Start: 07-13-2023 End: 07-13-[address] Jagjit Cheema Work Phone: [facility] Work Phone: Start: 07-05-2023 End: 07-05-2023 Admission to same day surgery center Dr. Jagjit Cheema Work Phone: [facility] Start: 07-05-2023 End: 07-05-[address] Jagjit Cheema Work Phone: [facility] Work Phone: Start: 06-30-2023 End: 04-23-2024 Telephone encounter Robby Bales MD Work Phone: General Surgery Comment on above: 07/19/2023 [facility]MBILICAL [facility]IA REPA[facility] [place] Start: 06-08-2023 Refill Jagjit Cheema MD Work Phone: [facility] Comment on above: Refill Request Start: 05-09-2023 End: 05-09-2023 ambulatory [facility] Work Phone: Start: 05-09-2023 End: 05-09-2023 Discharged Recurring [facility]-Physical Therapy Work Phone: Start: 04-27-2023 Registered Recurring [facility] Work Phone: Start: 04-25-2023 End: 04-25-2023 ambulatory [facility] Work Phone: Start: 04-25-2023 End: 04-25-2023 Patient encounter procedure [facility] Work Phone: Start: 04-03-2023 End: 04-03-2023 Subsequent hospital visit by physician Xr [facility] Work Phone: Radiology Comment on above: Pain of left heel [M 79.672] Start: 01-23-2023 End: 01-23-2023 Patient encounter procedure Jagjit Cheema MD Work Phone: [facility] Comment on above: Essential hypertensi on, benign (Primary Dx); Recurrent UTI (urinary tract infection); Adjustment disorder with anxious mood; Fatigue, unspecified type; Atrial flutter, unspecified type (HCC); Coronary artery disease 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 angina pectoris Start: 01-03-2023 ambulatory Jagjit Cheema MD Work Phone: [facility] Comment on above: Therapist Start: 01-03-2023 Telephone encounter Vee gutierrez [facility] Work Phone: Psychology Comment on above: bh consult Start: 12-22-2022 Refill Sincere Rosales on PA-C Work Phone: [facility] Comment on above: Refill Request Start: 12-19-2022 End: 12-19-2022 Patient encounter procedure Jagjit Cheema MD Work Phone: [facility] Comment on above: Urinary tract infect ion without hematuria, site unspecified (Primary Dx); Hypokalemia; Leukocytosis, unspecified type Start: 12-16-2022 Non-patient / Non-visit Dr. Catina Cheema Work Phone: [facility] Work Phone: Start: 12-15-2022 End: 12-16-2022 Evaluation and management of inpatient Dr. Jagjit Cheema Work Phone: [facility]-Medical Surgical 3 Work Phone: Start: 12-15-2022 ambulatory Jagjit Cheema MD Work Phone: [facility] Comment on above: ER F/U Start: 12-14-2022 End: 12-14-2022 Emergency department patient visit Dr. Jagjit Cheema Work Phone: [facility]-Emergency Department Work Phone: Start: 12-14-2022 End: 12-14-2022 Patient encounter procedure Jagjit Cheema MD Work Phone: [facility] Comment on above: Urinary tract infect ion with hematuria, site unspecified (Primary Dx); Fever, unspecified fever cause; Dehydration Start: 11-22-2022 ambulatory Kira Watt Work Phone: General Surgery Comment on above: Insurance Start: 11-07-2022 End: 11-07-[address] Jagjit Cheema Work Phone: [facility] Work Phone: Start: 10-25-2022 End: 10-25-2022 Patient encounter procedure Jagjit Cheema MD Work Phone: [facility] Comment on above: Essential hypertensi on, benign (Primary Dx); History of pulmonary embolism; Coronary artery disease 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 angina pectoris; Atrial flutter, unspecified type (HCC); Adjustment disorder with anxious mood Start: 10-25-2022 Telephone encounter Jagjit Cheema MD Work Phone: [facility] Comment on above: Medication Problem Start: 10-21-[address] Pol[facility] Start: 09-23-2022 Telephone encounter [facility] Comment on above: Consult (Patient Out reach [facility]) Start: 09-22-2022 End: 09-22-2022 Patient encounter procedure Jagjit Cheema MD Work Phone: [facility] Comment on above: Bacterial sinusitis (Primary Dx); Adjustment disorder with anxious mood; Essential hypertension, benign; Other pulmonary embolism without acute cor pulmonale, unspecified chronicity (HCC); Hyperlipidemia, unspecified hyperlipidemia type; Coronary artery disease 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 angina pectoris; Sleep apnea, unspecified type; Uncomplicated asthma, unspecified asthma severity, unspecified whether persistent; Atrial flutter, unspecified type ([facility]); Myalgia; Disorder of bone, unspecified Start: 09-06-2022 Refill Sincere romo PA-C Work Phone: [facility] Comment on above: Refill Request Start: 08-09-2022 Non-patient / Non-visit Dr. Catina Cheema Work Phone: [facility] Start: 08-09-2022 End: 08-09-2022 Admission to same day surgery center Dr. Jagjit Cheema Work Phone: [facility] Machine Operator/Special Procedures Start: 08-09-2022 End: 08-09-[address] Jagjit Cheema Work Phone: [facility] Work Phone: Start: 08-08-2022 Non-patient / Non-visit Dr. Catina Cheema Work Phone: [facility] Start: 08-03-2022 End: 08-03-[address] Jagjit Cheema Work Phone: [facility] Start: 06-22-2022 Refill Jagjit Cheema MD Work Phone: [facility] Comment on above: Refill Request Start: 06-16-2022 End: 06-16-[address] Jagjit Cheema Work Phone: [facility] Work Phone: Start: 06-16-2022 End: 06-16-[address] Jagjit Cheema Work Phone: [facility]Laboratory Start: 06-16-2022 End: 06-16-[address] Jagjit Cheema Work Phone: [facility] Start: 05-18-2022 Non-patient / Non-visit Dr. Catina Cheema Work Phone: [facility] Start: 05-18-2022 End: 05-18-[address] Jagjit hCeema Work Phone: [facility] Work Phone: Start: 05-18-2022 End: 05-18-[address] Jagjit Cheema Work Phone: [facility]-Cardiovascul ar Services Start: 05-09-2022 End: 05-09-[address] Jagjit Cheema Work Phone: [facility]-Pulmonary Services/Neurology Start: 05-07-2022 End: 05-07-2022 Emergency department patient visit Dr. Jagjit Cheema Work Phone: [facility]-Emergency Department Start: 04-29-2022 End: 04-29-[address] Jagjit Cheema Work Phone: [facility]Laboratory Start: 04-29-2022 End: 04-29-[address] Jagjit Cheema Work Phone: [facility] Start: 04-25-2022 End: 04-25-[address] Jagjit Cheema Work Phone: [facility] Work Phone: Start: 04-25-2022 End: 04-25-2022 Patient encounter procedure [facility] Start: 04-21-2022 Chart abstracting Jagjit Becker MD Work Phone: [facility] [place] Start: 04-20-2022 End: 04-20-2022 ambulatory [facility] Work Phone: Start: 04-20-2022 End: 04-20-2022 Patient encounter procedure [facility] Start: 03-12-2022 Refill Jagjit Cheema MD Work Phone: [facility] Comment on above: Refill Request Start: 02-22-2022 Nafisa Rosales on PA-C Work Phone: [facility] Comment on above: Refill Request Start: 02-12-2022 End: 02-12-2022 Emergency department patient visit Dr. Jagjit Cheema Work Phone: [facility]-Emergency Department Start: 02-12-2022 End: 02-12-2022 Patient encounter procedure Carolann Lucas COMFORT.EDGE POLISHER Work Phone: [facility] Comment on above: Facial pain (Primary Dx); Right ear pain; Acute right eye pain Start: 12-16-2021 ambulatory Jagjit Cheema MD Work Phone: [facility] Comment on above: Hello Doc Start: 12-07-2021 Telephone encounter Jagjit Cheema MD Work Phone: [facility] Comment on above: ear problems/sinuses Start: 11-29-2021 Telephone encounter Jagjit Cheema MD Work Phone: [facility] Comment on above: Results Patient Update Start: 11-29-2021 End: 11-29-[address] Jagjit Cheema Work Phone: [facility]-Laboratory, Specimen Start: 11-29-2021 End: 11-29-2021 Subsequent hospital visit by physician Saba [facility] [place] Work Phone: Radiology Comment on above: Other pulmonary embo lism without acute cor pulmonale, unspecified chronicity (HCC) [I26.99] Start: 11-28-2021 ambulatory Jagjit Cheema MD Work Phone: [facility] Comment on above: Covid issues Start: 11-23-2021 End: 11-23-[address] Jagjit Cheema Work Phone: [facility] Start: 11-13-2021 ambulatory Jagjit Cheema MD Work Phone: [facility] Comment on above: Prescription ran out Start: 10-20-2021 End: 10-20-[address] Jagjit Cheema Work Phone: [facility] Start: 10-20-2021 End: 10-20-[address] Jagjit Cheema Work Phone: [facility] Start: 10-14-2021 End: 10-14-2021 Patient encounter procedure Kisha Wen APRN.EDGE POLISHER Work Phone: [facility] Comment on above: Feeling light headed (Primary Dx) Start: 09-30-2021 End: 09-30-[address] Jagjit Cheema Work Phone: [facility] Rad[facility] Start: 09-10-2021 End: 09-10-2021 Patient encounter procedure Oliva Gutierrez PA-C Work Phone: Orthopaedics Comment on above: Pes planus of both f eet (Primary Dx); Acquired valgus deformity of right ankle; Primary osteoarthritis of right ankle Start: 09-10-2021 End: 09-10-2021 Subsequent hospital visit by physician Xr [facility] Work Phone: Radiology Comment on above: Pain [R52] Start: 09-05-2020 Patient encounter procedure Abraham Rosa MD Work Phone: [facility] Start: 09-05-2020 Progress Note Abraham walter MD Work Phone: [facility] Start: 04-28-2020 End: 04-28-2020 Subsequent hospital visit by physician Xr [facility] Work Phone: Radiology Comment on above: Pain of right heel [ M79.671] Start: 03-19-2020 Patient encounter procedure Eyal Montoya DO Work Phone: [facility] Start: 03-19-2020 Progress Note Eyal Bagley Work Phone: [facility] Start: 10-30-2017 End: 10-30-2017 Emergency department patient visit JAGJIT Nik SOUZA [facility] Procedures Date Procedure Procedure Detail Performing Clinician Start: 11-18-2024 Radiologic exam chest 2 views Susan Kerr [employer] Work Phone: Start: 10-28-2024 Computed tomography of abdomen and pelvis with intravenous contrast Dr. Jagjit Cheema MD Work Phone: Start: 10-28-[address] Jagjit Cheema MD Work Phone: Start: 10-28-2024 Urnls dip stick/tablet reagent auto microscopy Dr. Jagjit Cheema MD Work Phone: Start: 09-17-2024 Lipid 1996 panel - Serum or Plasma Jagjit Cheema MD Work Phone: Start: 07-08-2024 Radiologic exam chest 2 views Jagjit Cheema MD Work Phone: Start: 06-17-2024 Radiologic exam chest 2 views Jagjit Cheema MD Work Phone: Start: 04-25-2024 Radiologic exam chest 2 views Lisa Javed [employer] SERVER.ED[employer]ER Work Phone: Start: 03-08-2024 Ct abdomen & pelvis w/contrast material Jagjit Cheema MD Work Phone: Start: 12-29-2023 Adult depression screening assessment X[facility] [place] Work Phone: Start: 10-20-2023 Plain x-ray of pelvis and lower extremity Dr. Jagjit Cheema Work Phone: Start: 09-06-2023 Lipid 1996 panel - Serum or Plasma Jagjit Cheema MD Work Phone: Start: 07-26-2023 End: 07-26-2023 History of percutaneous transluminal coronary angioplasty Status post coronary artery balloon dilation Jagjit Cheema MD Work Phone: Start: 04-03-2023 Radex foot complete minimum 3 views Anabelle Tom [employer]ET SERVER.EDGE POLISHER Work Phone: Start: 12-15-2022 Plain chest X-ray Dr. Jagjit Cheema Work Phone: Start: 12-15-[address] Jagjit Cheema Work Phone: Start: 12-14-2022 Plain chest X-ray Dr. Jagjit Cheema Work Phone: Start: 12-14-2022 CT of abdomen and pelvis without contrast Dr. Jagjit Cheema Work Phone: Start: 12-14-2022 Urnls dip stick/tablet rgnt auto w/o microscopy Jagjit Cheema MD Work Phone: Start: 12-14-[address] Jagjit Cheema Work Phone: Start: 12-01-2022 Colonoscopy PAUL Hung PA-C Work Phone: Start: 09-26-2022 Lipid 1996 panel - Serum or Plasma Jagjit Cheema MD Work Phone: Start: 05-18-2022 Cardiovascular stress test using pharmacologic stress agent Dr. Jagjit Cheema Work Phone: Start: 05-07-2022 Plain chest X-ray Dr. Jagjit Cheema Work Phone: Start: 04-20-2022 Lipid panel [facility] Provider Start: 02-12-2022 CT of head without contrast Dr. Jagjit Cheema Work Phone: Start: 11-29-2021 Radiologic exam chest 2 views Jagjit Cheema MD Work Phone: Start: 09-30-2021 X-ray of cervical spine Dr. Jagjit Cheema Work Phone: Start: 09-10-2021 Radex ankle complete minimum 3 views Oliva Gutierrez PA-C Work Phone: Start: 04-28-2020 Radex foot complete minimum 3 views Sincere Hung PA-C Work Phone: Start: 01-28-2019 Colonoscopy Oliva Gutierrez PA-C Work Phone: Start: 01-24-2019 Colonoscopy Kisha Wen APRN.CNP Work Phone: Start: 05-22-2018 Adult depression screening assessment Oliva Gutierrez PA-C Work Phone: Start: [...] Follow Up Appt 3 months Lorena Cruz CUSTOMER SERVICE CORRESPONDENCE CLERK Work Phone: Start: 08-17-2016 End: 08-17-2016 MMM Lorena Cruz CUSTOMER SERVICE CORRESPONDENCE CLERK Work Phone: Start: 01-04-2016 End: 01-04-2016 Dietary management education, guidance, and counseling Erlin Mohr Start: 01-04-2016 End: 01-15-2016 Ct thorax w/dye Willis Alfred MD Start: 01-04-2016 End: 11-22-2016 Echocardiography Willis Alfred MD Start: 01-04-2016 End: 01-04-2016 Electrocardiogram, complete Willis johnson MD Start: 01-04-2016 End: 01-04-2016 Follow Up Appt Other Willis Alfred MD Start: 01-04-2016 End: 11-22-2016 Nuclear stress test -exercise Willis Alfred MD Start: 10-19-2015 End: 11-22-2016 *Hepatic Function Panel Willis Alfred MD Start: 10-19-2015 End: 11-22-2016 Lipid panel [AGGREGATE] Willis Alfred MD Start: 04-20-2015 End: 04-20-2015 *Hepatic Function Panel Willis Alfred MD Start: 04-20-2015 End: 04-20-2015 Lipid panel [AGGREGATE] Willis Alfred MD Start: 03-31-2015 End: 04-20-2015 *Hepatic Function Panel Dyana Alvarez PA-C Work Phone: Start: 03-31-2015 End: 04-01-2015 Documentation of current medications Dyana Alvarez PA-C Work Phone: Start: 03-31-2015 End: 03-31-2015 Follow Up Appt 6 months Dyana Alvarez PA-C Work Phone: Start: 03-31-2015 End: 04-20-2015 Lipid panel [AGGREGATE] Dyana Alvarez PA-C Work Phone: Start: 03-31-2015 [...] End: 03-25-2015 Follow Up Appt Other Dyana Alvarez PA-C Work Phone: Start: 09-29-2014 End: 10-22-2014 [...] 03-24-2014 Follow Up Appt 6 months Dyana Alvarez PA-C Work Phone: Start: 03-24-2014 End: 03-24-2014 Follow Up Appt Other Dyana Alvarez PA-C Work Phone: Start: 03-24-2014 End: 03-24-2014 PFM Dyana Alvarez PA-C Work Phone: Start: 03-19-2014 End: 03-31-2014 *Hepatic Function Panel Dyana Alvarez PA-C Work Phone: Start: 03-19-2014 End: 03-31-2014 Lipid panel [AGGREGATE] Dyana Alvarez PA-C Work Phone: Start: 12-04-2013 End: 01-06-2014 [...] End: 01-08-2015 Follow Up Appt Other Dyana Alvarez PA-C Work Phone: Start: 09-04-2013 End: 09-16-2013 [...] Start: 01-30-2013 End: 12-02-2013 Arterial exam Willis Alfred MD Start: 01-30-2013 End: 01-30-2013 Follow Up [...] 2012 End: 12-17-2012 *Hepatic Function Panel Dyana Alvarez PA-C Work Phone: Start: 2012 End: 12-14-2012 Cardiac Rehab Dyana Alvarez PA-C Work Phone: Start: 2012 End: 10-23-2012 Electrocardiogram, complete Dyana Alvarez PA-C Work Phone: Start: 2012 End: 2012 Follow Up Appt Other Dyana Alvarez PA-C Work Phone: Start: 2012 End: 12-17-2012 Lipid panel [AGGREGATE] Dyana Alvarez PA-C Work Phone: Start: 09-03-2012 [...] Start: 09-03-2012 End: 09-04-2012 Electrocardiogram, complete Dyana Alvarez PA-C Work Phone: Start: 09-03-2012 End: 2012 Follow Up Appt Other Dyana Alvarez PA-C Work Phone: Start: 09-03-2012 [...] End: 2012 Nuclear stress test -exercise Willis Alfred MD Start: 07-18-2012 End: 07-18-2012 PFM Willis Alfred MD History of percutane ous transluminal coronary angioplasty H/O percutaneous transluminal coronary angioplasty Dr. Jagjit Cheema Work Phone: Plan of Treatment Date Care Activity Detail Author Start: 09-17-2029 Lipid panel Lipid Screening [facility] Start: 09-05-2028 Lipid panel Lipid Screening [facility] Start: 12-02-2027 Colonoscopy COLONOSCOPY [facility] Start: 12-02-2027 COLORECTAL CANCER SCREENING COLORECTAL CANCER SCREENING [facility] Start: 12-02-2027 Screening for malignant neoplasm of colon [facility] Start: 09-27-2027 Lipid panel Lipid Screening [facility] Start: 09-27-2027 LIPID SCREEN LIPID SCREEN [facility] Start: 09-18-2027 Diabetes Screening Diabetes Screening [facility] Start: 07-08-2027 Diabetes Screening Diabetes Screening [facility] Start: 06-24-2027 Diabetes Screening Diabetes Screening [facility] Start: 04-25-2027 Diabetes Screening Diabetes Screening [facility] Start: 04-20-2027 LIPID SCREEN LIPID SCREEN [facility] Start: 03-08-2027 Diabetes Screening Diabetes Screening [facility] Start: 12-19-2026 Diabetes Screening Diabetes Screening [facility] Start: 12-12-2026 Diabetes Screening Diabetes Screening [facility] Start: 09-05-2026 Diabetes Screening Diabetes Screening [facility] Start: 02-08-2026 Diabetes Screening Diabetes Screening [facility] Start: 12-29-2025 DIABETES SCREEN DIABETES SCREEN [facility] Start: 12-19-2025 DIABETES SCREEN DIABETES SCREEN [facility] Start: 11-18-2025 Annual PCP Team Chronic Disease Visit Annual PCP Team Chronic Disease Visit [facility] Start: 10-22-2025 PROSTATE CANCER SCREENING DISCUSSION PROSTATE CANCER SCREENING DISCUSSION [facility] Start: 10-22-2025 Prostate specific antigen measurement Prostate Cancer Screening Discussion [facility] Start: 10-21-2025 Annual PCP Team Chronic Disease Visit Annual PCP Team Chronic Disease Visit [facility] Start: 09-26-2025 DIABETES SCREEN DIABETES SCREEN [facility] Start: 09-23-2025 Annual PCP Team Chronic Disease Visit Annual PCP Team Chronic Disease Visit [facility] Start: 09-17-2025 Hepatitis B surface antibody level LDL Cholesterol [facility] Start: 09-11-2025 Annual PCP Team Chronic Disease Visit Annual PCP Team Chronic Disease Visit [facility] Start: 09-11-2025 RSV Vaccine (1 - Risk 60-74 years 1-dose series) RSV Vaccine (1 - Risk 60-74 years 1-dose series) [facility] Comment on above: Postponed from 2017 (Declined at t his time) Start: 07-08-2025 Annual PCP Team Chronic Disease Visit Annual PCP Team Chronic Disease Visit [facility] Start: 06-24-2025 Annual PCP Team Chronic Disease Visit Annual PCP Team Chronic Disease Visit [facility] Start: 06-17-2025 Annual PCP Team Chronic Disease Visit Annual PCP Team Chronic Disease Visit [facility] Start: 04-25-2025 Annual PCP Team Chronic Disease Visit Annual PCP Team Chronic Disease Visit [facility] Start: 04-10-2025 Annual PCP Team Chronic Disease Visit Annual PCP Team Chronic Disease Visit [facility] Start: 03-28-2025 End: 03-28-2025 Patient encounter procedure 03/28/2025 8:00 AM EDT Office Visit [facility] [place] [address] [place] [address] Jagjit Cheema MD [address] [place] [id number] Medicare Wellness [facility] [place] Comment on above: Medicare Wellness Start: 03-13-2025 Annual PCP Team Chronic Disease Visit Annual PCP Team Chronic Disease Visit [facility] Start: 03-08-2025 Annual PCP Team Chronic Disease Visit Annual PCP Team Chronic Disease Visit [facility] Start: 03-08-2025 Covid-19 Vaccine ( season) Covid-19 Vaccine () [facility] Comment on above: Postponed from 02/18/2024 (Declined at t his time) Start: 03-08-2025 Covid-19 Vaccine () Covid-19 Vaccine () [facility] Comment on above: Postponed from 02/18/2024 (Declined at t his time) Start: 02-17-2025 Influenza vaccination Influenza Vaccine (Season Ended) [facility] Start: 12-28-2024 Annual PCP Team Chronic Disease Visit Annual PCP Team Chronic Disease Visit [facility] Start: 12-28-2024 Anxiety Screening Anxiety Screening [facility] Start: 12-28-2024 Covid-19 Vaccine ( season) Covid-19 Vaccine () [facility] Comment on above: Postponed from 11/24/2023 (Declined at t his time) Start: 12-28-2024 Depression Screening Depression Screening [facility] Start: 12-24-2024 End: 12-24-2024 Patient encounter procedure 12/24/2024 2:00 PM EDT Office Visit Family [facility] [place] [address] [place] [address] Jagjit Cheema MD [address] [address] 8 week follow up [facility] [place] Comment on above: 8 week follow up Start: 12-22-2024 LIPID SCREEN LIPID SCREEN [facility] Start: 12-16-2024 Influenza vaccination Influenza Vaccine (#1) [place] [facility] Comment on above: Postponed from 02/18/2024 (Declined at t his time) Start: 12-12-2024 Annual PCP Team Chronic Disease Visit Annual PCP Team Chronic Disease Visit [facility] Start: 11-28-2024 Annual PCP Team Chronic Disease Visit Annual PCP Team Chronic Disease Visit [facility] Start: 11-28-2024 Shingrix Vaccine (1 of 2) Shingrix Vaccine (1 of 2) [facility] Comment on above: Postponed from 09/22/2007 (Declined at t his time) Start: 11-28-2024 Urine microalbumin profile DTaP,Tdap,Td Vaccine (1 - Tdap) [facility] Comment on above: Postponed from 1976 (Declined at t his time) Start: 10-28-2024 [facility] Start: 10-24-2024 Annual PCP Team Chronic Disease Visit Annual PCP Team Chronic Disease Visit [facility] Start: 10-21-2024 End: 10-21-2024 Patient encounter procedure 10/21/2024 9:00 AM EDT Office Visit Family Medicine [place] [address] [facility] [place] [id number] Jagjit Cheema MD [address] [facility] [place] [address] 1 mo follow up Family [facility] Comment on above: 1 mo follow up Start: 10-18-2024 End: 01-17-2025 Platelets [#/volume] in Blood PLATELET COUNT Lab Routine Thrombocytopenia Expected: 10/18/2024, Expires: 01/17/2025 [facility] Work Phone: Comment on above: Expected: 10/18/2024, Expires: Start: 10-18-2024 End: 10-18-2024 ambulatory 10/18/2024 7:30 AM EDT Results Only [facility] [address] [facility] [place] [address] [facility] Start: 10-14-2024 DIABETES SCREEN DIABETES SCREEN [facility] Start: 10-14-2024 End: 10-14-2024 Patient encounter procedure 10/14/2024 7:40 AM EDT Office Visit [facility] [place] [address] [place] [address] Susan Kerr APRN.EDGE POLISHER [address] [place] [address] 1 month BP check [facility] [place] Comment on above: 1 month BP check Start: 09-23-2024 End: 09-23-2024 Patient encounter procedure 09/23/2024 9:40 AM EDT Office Visit [facility] [place] [address] [facility] [place] [address] Jagjit Cheema MD [address] [facility] [place] [address] Switch meds. See TE 09/19/24. [facility] [place] Comment on above: Switch meds. See TE 09/19/24. Start: 09-11-2024 End: 12-11-2024 CBC W Auto Differential panel - Blood COMPLETE BLOOD COUNT AND DIFFERENTIAL Lab Routine Fatigue, unspecified type Expected: 09/11/2024, Expires: 12/11/2024 [facility] Comment on above: Expected: 09/11/2024, Expires: Start: 09-11-2024 End: 12-11-2024 Comprehensive metabolic 2000 panel - Serum or Plasma COMPREHENSIVE METABOLIC PANEL Lab Routine Fatigue, unspecified type Expected: 09/11/2024, Expires: 12/11/2024 [facility] Comment on above: Expected: 09/11/2024, Expires: Start: 09-11-2024 End: 12-11-2024 Erythrocyte sedimentation rate SEDIMENTATION RATE, WESTERGREN Lab Routine Fatigue, unspecified type Expected: 09/11/2024, Expires: 12/11/2024 [facility] Comment on above: Expected: 09/11/2024, Expires: Start: 09-11-2024 End: 12-11-2024 Lipid 1996 panel - Serum or Plasma LIPID PANEL, FASTING Lab Routine Hyperlipidemia, unspecified hyperlipidemia type Expected: 09/11/2024, Expires: 12/11/2024 [facility] Comment on above: Expected: 09/11/2024, Expires: Start: 09-11-2024 End: 12-11-2024 T4/FTI/T4U T4/FTI/T4U Lab Routine Fatigue, unspecified type Expected: 09/11/2024, Expires: 12/11/2024 [facility] Comment on above: Expected: 09/11/2024, Expires: Start: 09-11-2024 End: 12-11-2024 Thyrotropin [Units/volume] in Serum or Plasma THYROID STIMULATING HORMONE Lab Routine Fatigue, unspecified type Expected: 09/11/2024, Expires: 12/11/2024 [facility] Work Phone: Comment on above: Expected: 09/11/2024, Expires: Start: 09-11-2024 End: 09-11-2024 Patient encounter procedure [facility] [place] Comment on above: 6 month follow up 6 month follow up/re view for c-pap supplies Start: 09-05-2024 Hepatitis B surface antibody level LDL Cholesterol [facility] Start: 09-04-2024 Annual PCP Team Chronic Disease Visit Annual PCP Team Chronic Disease Visit [facility] Start: 07-26-2024 Annual PCP Team Chronic Disease Visit Annual PCP Team Chronic Disease Visit [facility] Start: 07-26-2024 RSV Vaccine (1 - 1-dose 60+ series) RSV Vaccine (1 - 1-dose 60+ series) [facility] Comment on above: Postponed from 2017 (Declined at t his time) Start: 07-26-2024 RSV Vaccine (1 - Risk 60-74 years 1-dose series) RSV Vaccine (1 - Risk 60-74 years 1-dose series) [facility] Comment on above: Postponed from 2017 (Declined at t his time) Start: 07-09-2024 End: 10-08-2024 Hemoglobin A1c in Blood HEMOGLOBIN A1C Lab Routine Hyperglycemia Hypokalemia Expected: 07/09/2024, Expires: 10/08/2024 [facility] Comment on above: Expected: 07/09/2024, Expires: Start: 07-09-2024 End: 10-08-2024 Potassium [Moles/volume] in Serum or Plasma POTASSIUM Lab Routine Hyperglycemia Hypokalemia Expected: 07/09/2024, Expires: 10/08/2024 [facility] Work Phone: Comment on above: Expected: 07/09/2024, Expires: Start: 07-08-2024 End: 07-08-2024 Patient encounter procedure 07/08/2024 9:00 AM EST Office Visit [facility] [address] [facility] [place], [place] [address] Jagjit Cheema MD [address] [facility] [place] [id number] pneumonia follow up [facility] Comment on above: pneumonia follow up Start: 06-24-2024 End: 09-23-2024 Basic metabolic 2000 panel - Serum or Plasma [facility] Comment on above: Expected: 06/24/2024, Expires: Start: 06-24-2024 End: 09-23-2024 CBC W Auto Differential panel - Blood [facility] Comment on above: Expected: 06/24/2024, Expires: Start: 06-24-2024 End: 06-24-2024 Patient encounter procedure 06/24/2024 9:00 AM EST Office Visit [facility] [address] [facility] [place], [place] [address] Jagjit Cheema MD [address] [place], [place] [address] recheck pneumonia [facility] Comment on above: recheck pneumonia Start: 06-19-2024 Advance Directive Discussion Advance Directive Discussion [facility] Start: 06-18-2024 Advance Directive Discussion Advance Directive Discussion [facility] Comment on above: Postponed from 06/19/2023 (Declined at t his time) Start: 06-04-2024 DIABETES SCREEN DIABETES SCREEN [facility] Start: 04-26-2024 End: 07-26-2024 Hemoglobin A1c in Blood [facility] Work Phone: Comment on above: Expected: 04/26/2024, Expires: 5 Start: 04-25-2024 End: 07-25-2024 Comprehensive metabolic 2000 panel - Serum or Plasma [facility] Work Phone: Comment on above: Expected: 04/25/2024, Expires: 5 Start: 04-03-2024 BP Controlled (<130/80) BP Controlled (<130/80) [facility] Start: 03-13-2024 End: 03-13-2024 Patient encounter procedure 03/13/2024 9:00 AM EDT Office Visit Family [facility] [place] [address] [place], [place] [id number] Jagjit Cheema MD [address] [place], [place] [id number] follow up [facility] [place] Comment on above: follow up Start: 03-08-2024 Subsequent hospital visit by physician 03/08/2024 2:56 PM EDT Hospital Encounter [facility] [address] [place] [phone] Left lower quadrant abdominal pain [R10.32] [facility] Comment on above: Left lower quadrant abdominal pain [R10. 32] Start: 03-08-2024 End: 06-07-2024 Bacteria identified in Urine by Culture URINE CULTURE Microbiology Routine Chronic RLQ pain Left lower quadrant abdominal pain Expected: 03/08/2024, Expires: 06/07/2024 [facility] Comment on above: Expected: 03/08/2024, Expires: 4 Start: 03-08-2024 End: 06-07-2024 Comprehensive metabolic 2000 panel - Serum or Plasma [facility] Work Phone: Comment on above: Expected: 03/08/2024, Expires: 4 Start: 03-08-2024 End: 06-07-2024 Urinalysis complete panel - Urine URINALYSIS, WITH MICROSCOPIC Lab Routine Chronic RLQ pain Left lower quadrant abdominal pain Expected: 03/08/2024, Expires: 06/07/2024 [facility] Comment on above: Expected: 03/08/2024, Expires: Start: 03-08-2024 End: 03-08-2024 Patient encounter procedure 03/08/2024 9:40 AM EDT Office Visit [facility] [place] [address] [facility] [place], [place] [address] Jagjit Cheema MD [address] [facility] [place], [place] [address] 6 month follow up [facility] [place] Comment on above: 6 month follow up Start: 02-18-2024 Covid-19 Vaccine () Covid-19 Vaccine () [facility] Start: 02-18-2024 Influenza vaccination Influenza Vaccine (#1) [facility] Start: 01-26-2024 End: 01-26-2024 Patient encounter procedure 01/26/2024 8:00 AM EDT Office Visit [facility] [place] [address] [facility] [place], [place] [id number] Susan Kerr, BANQU[employer] SERVER.EDGE POLISHER [address] [facility] [place], [place] [id number] 4 week follow up bronchitis/fatigue. possibly adjusting strattera depending. [facility] [place] Comment on above: 4 week follow up bronchitis/fatigue. pos sibly adjusting strattera depending. Start: 01-24-2024 ANNUAL PCP TEAM CHRONIC DISEASE VISIT ANNUAL PCP TEAM CHRONIC DISEASE VISIT [facility] Start: 12-22-2023 End: 12-22-2023 Patient encounter procedure 12/22/2023 9:40 AM EDT Office Visit [facility] [place] [address] [facility] [place] [address] Jagjit Cheema MD [address] [facility] [place], [place] [id number] ADD Medication advice [facility] [place] Comment on above: ADD Medication advice Start: 12-20-2023 ANNUAL PCP TEAM CHRONIC DISEASE VISIT ANNUAL PCP TEAM CHRONIC DISEASE VISIT [facility] Start: 12-20-2023 End: 12-20-2023 ambulatory 12/20/2023 8:00 AM EDT Results Only [place] [facility] Draw Station [address] [place] [address] [place] [facility] Start: 12-15-2023 ANNUAL PCP TEAM CHRONIC DISEASE VISIT ANNUAL PCP TEAM CHRONIC DISEASE VISIT [facility] Start: 12-13-2023 End: 03-13-2024 Basic metabolic 2000 panel - Serum or Plasma BASIC METABOLIC PANEL Lab Routine Hypokalemia Expected: 12/13/2023, Expires: 03/13/2024 [facility] Comment on above: Expected: 12/13/2023, Expires: Start: 11-24-2023 Covid-19 Vaccine () Covid-19 Vaccine () [facility] Start: 10-26-2023 ANNUAL PCP TEAM CHRONIC DISEASE VISIT ANNUAL PCP TEAM CHRONIC DISEASE VISIT [facility] Start: 09-27-2023 Hepatitis B surface antibody level LDL CHOLESTEROL [facility] Start: 09-23-2023 ANNUAL PCP TEAM CHRONIC DISEASE VISIT ANNUAL PCP TEAM CHRONIC DISEASE VISIT [facility] Start: 09-23-2023 COVID-19 VACCINE (4 - Booster for Pfizer series) COVID-19 VACCINE (4 - Booster for Pfizer series) [facility] Comment on above: Postponed from 06/28/2021 (Declined at t his time) Start: 09-23-2023 COVID-19 VACCINE (4 - Pfizer series) COVID-19 VACCINE (4 - Pfizer series) [facility] Comment on above: Postponed from 06/28/2021 (Declined at t his time) Start: 09-23-2023 SHINGRIX VACCINE (1 of 2) SHINGRIX VACCINE (1 of 2) [facility] Comment on above: Postponed from 09/22/2007 (Declined at t his time) Start: 09-23-2023 Urine microalbumin profile [facility] Comment on above: Postponed from 1976 (Declined at t his time) Start: 09-22-2023 Pneumococcal Vaccine: 65+ (2 of 2 - PCV) Pneumococcal Vaccine: 65+ (2 of 2 - PCV) [facility] Comment on above: Postponed from 04/19/2013 (Postponed To Appropriate Date) Postponed from 09/21 (Postponed To Appropriate Date) Start: 09-22-2023 PNEUMOCOCCAL: 65+ (2 - PCV) PNEUMOCOCCAL: 65+ (2 - PCV) [facility] Comment on above: Postponed from 04/19/2013 (Postponed To Appropriate Date) Start: 09-07-2023 End: 12-07-2023 Hemoglobin A1c in Blood HGB A1C Lab Routine Hyperglycemia Expected: 09/07/2023, Expires: 12/07/2023 [facility] Work Phone: Comment on above: Expected: 09/07/2023, Expires: 4 Start: 09-05-2023 End: 12-05-2023 CBC W Auto Differential panel - Blood CBC + DIFF Lab Routine Fatigue, unspecified type Expected: 09/05/2023, Expires: 12/05/2023 [facility] Work Phone: Comment on above: Expected: 09/05/2023, Expires: 4 Start: 09-05-2023 End: 12-05-2023 Comprehensive metabolic 2000 panel - Serum or Plasma COMP METABOLIC PANEL Lab Routine Fatigue, unspecified type Expected: 09/05/2023, Expires: 12/05/2023 [facility] Work Phone: Comment on above: Expected: 09/05/2023, Expires: 4 Start: 09-05-2023 End: 12-05-2023 Lipid 1996 panel - Serum or Plasma LIPID PANEL BASIC Lab Routine Hyperlipidemia, unspecified hyperlipidemia type Expected: 09/05/2023, Expires: 12/05/2023 [facility] Work Phone: Comment on above: Expected: 09/05/2023, Expires: 4 Start: 09-05-2023 End: 12-05-2023 Testosterone [Mass/volume] in Serum or Plasma TESTOSTERONE TOTAL Lab Routine Testosterone deficiency Fatigue, unspecified type Expected: 09/05/2023, Expires: 12/05/2023 [facility] Work Phone: Comment on above: Expected: 09/05/2023, Expires: 4 Start: 09-05-2023 End: 12-05-2023 Thyrotropin [Units/volume] in Serum or Plasma TSH BLD Lab Routine Acute constipation Expected: 09/05/2023, Expires: 12/05/2023 [facility] Work Phone: Comment on above: Expected: 09/05/2023, Expires: 4 Start: 06-19-2023 Behavioral Health Screening Behavioral Health Screening [facility] Start: 04-20-2023 Hepatitis B surface antibody level LDL CHOLESTEROL [facility] Start: 02-17-2023 Covid-19 Vaccine () Covid-19 Vaccine () [facility] Start: 02-17-2023 Influenza vaccination [facility] Start: 01-23-2023 End: 03-25-2023 ALBUMIN/CREAT RATIO RND UR ALBUMIN/CREAT RATIO RND UR Lab Routine Recurrent UTI (urinary tract infection) Expected: 01/23/2023, Expires: 03/25/2023 [facility] Work Phone: Comment on above: Expected: 01/23/2023, Expires: 3 Start: 01-23-2023 End: 03-25-2023 Basic metabolic 2000 panel - Serum or Plasma BASIC METABOLIC PNL Lab Routine Essential hypertension, benign Expected: 01/23/2023, Expires: 03/25/2023 [facility] Work Phone: Comment on above: Expected: 01/23/2023, Expires: 3 Start: 01-23-2023 End: 03-25-2023 Thyrotropin [Units/volume] in Serum or Plasma TSH BLD Lab Routine Fatigue, unspecified type Expected: 01/23/2023, Expires: 03/25/2023 [facility] Work Phone: Comment on above: Expected: 01/23/2023, Expires: 3 Start: 01-23-2023 End: 03-25-2023 Urinalysis complete panel - Urine URINALYSIS, WITH MICROSCOPIC Lab Routine Recurrent UTI (urinary tract infection) Expected: 01/23/2023, Expires: 03/25/2023 [facility] Work Phone: Comment on above: Expected: 01/23/2023, Expires: 3 Start: 12-19-2022 End: 02-18-2023 Basic metabolic 2000 panel - Serum or Plasma [facility] Work Phone: Comment on above: Expected: 12/19/2022, Expires: 3 Start: 12-16-2022 Patient discharge [facility] Start: 12-15-2022 Following clinical pathway protocol [facility] Start: 12-15-2022 Assessment of risk of venous thromboembolism [facility] Start: 12-15-2022 Continuous positive airway pressure ventilation treatment [facility] Start: 12-15-2022 Fall prevention [facility] Start: 12-15-2022 Incentive spirometry [facility] Start: 12-15-2022 Inhalation therapy procedure [facility] Start: 12-15-2022 Insertion of catheter into peripheral vein [facility] Start: 12-15-2022 Introduction of urinary catheter [facility] Start: 12-15-2022 Measuring intake and output [facility] Start: 12-15-2022 Oxygen therapy [facility] Start: 12-15-2022 Providing care according to standard [facility] Start: 12-15-2022 Provision of activity privileges [facility] Start: 12-15-2022 Referral to service [facility] Start: 12-15-2022 [facility] Start: 12-15-2022 Verification routine [facility] Start: 12-15-2022 Admission procedure [facility] Start: 12-15-2022 Respiratory Panel (PCR) Respiratory Panel (PCR) [facility] Start: 12-15-2022 Consultation [facility] Start: 12-15-2022 Patient referral to dietitian [facility] Start: 12-14-2022 End: 12-14-2022 Blood culture [facility] Start: 12-14-2022 End: 12-14-2022 [facility] Start: 12-14-2022 Bacteria identified in Blood by Culture Blood Culture [facility] Start: 12-14-2022 Urine culture Urine Culture [facility] Start: 11-29-2022 ANNUAL PCP TEAM CHRONIC DISEASE VISIT ANNUAL PCP TEAM CHRONIC DISEASE VISIT [facility] Start: 09-22-2022 End: 11-22-2022 25-hydroxyvitamin D3 [Mass/volume] in Serum or Plasma VITAMIN D 25 HYDROXY Lab Routine Hyperlipidemia, unspecified hyperlipidemia type Coronary artery disease 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 angina pectoris Myalgia Disorder of bone, unspecified Expected: 09/22/2022, Expires: 11/22/2022 [facility] Work Phone: Comment on above: Expected: 09/22/2022, Expires: 3 Start: 09-22-2022 End: 11-22-2022 C reactive protein [Mass/volume] in Serum or Plasma C-REACTIVE PROTEIN (CRP) Lab Routine Myalgia Expected: 09/22/2022, Expires: 11/22/2022 [facility] Work Phone: Comment on above: Expected: 09/22/2022, Expires: 3 Start: 09-22-2022 End: 11-22-2022 CBC W Auto Differential panel - Blood CBC + DIFF Lab Routine Essential hypertension, benign Expected: 09/22/2022, Expires: 11/22/2022 [facility] Work Phone: Comment on above: Expected: 09/22/2022, Expires: 3 Start: 09-22-2022 End: 11-22-2022 Comprehensive metabolic 2000 panel - Serum or Plasma COMP METABOLIC PANEL Lab Routine Essential hypertension, benign Expected: 09/22/2022, Expires: 11/22/2022 [facility] Work Phone: Comment on above: Expected: 09/22/2022, Expires: 3 Start: 09-22-2022 End: 11-22-2022 Creatine kinase [Enzymatic activity/volume] in Serum or Plasma CK CREATINE KINASE Lab Routine Essential hypertension, benign Expected: 09/22/2022, Expires: 11/22/2022 [facility] Work Phone: Comment on above: Expected: 09/22/2022, Expires: 3 Start: 09-22-2022 End: 11-22-2022 Erythrocyte sedimentation rate SED RATE WESTERGREN Lab Routine Myalgia Expected: 09/22/2022, Expires: 11/22/2022 [facility] Work Phone: Comment on above: Expected: 09/22/2022, Expires: 3 Start: 09-22-2022 End: 11-22-2022 Lipid 1996 panel - Serum or Plasma LIPID PANEL BASIC Lab Routine Hyperlipidemia, unspecified hyperlipidemia type Expected: 09/22/2022, Expires: 11/22/2022 [facility] Work Phone: Comment on above: Expected: 09/22/2022, Expires: 3 Start: 2022 Pneumococcal Vaccine: 65+ (2 of 2 - PCV) Pneumococcal Vaccine: 65+ (2 of 2 - PCV) [facility] Start: 07-26-2022 ANNUAL PCP TEAM CHRONIC DISEASE VISIT ANNUAL PCP TEAM CHRONIC DISEASE VISIT [facility] Start: 06-19-2022 DEPRESSION ASSESSMENT DEPRESSION ASSESSMENT [facility] Start: 05-07-2022 [facility] Start: 02-17-2022 Influenza vaccination [facility] Start: 01-28-2022 Colonoscopy COLONOSCOPY [facility] Start: 01-28-2022 COLORECTAL CANCER SCREENING COLORECTAL CANCER SCREENING [facility] Start: 01-24-2022 Colonoscopy COLONOSCOPY [facility] Start: 01-24-2022 COLORECTAL CANCER SCREENING COLORECTAL CANCER SCREENING [facility] Start: 10-14-2021 End: 12-14-2021 CBC panel - Blood by Automated count [facility] Work Phone: Comment on above: Expected: 10/14/2021, Expires: 2 Start: 10-14-2021 End: 12-14-2021 Comprehensive metabolic 2000 panel - Serum or Plasma [facility] Work Phone: Comment on above: Expected: 10/14/2021, Expires: 2 Start: 10-14-2021 End: 12-14-2021 Thyrotropin [Units/volume] in Serum or Plasma [facility] Work Phone: Comment on above: Expected: 10/14/2021, Expires: 2 Start: 10-14-2021 End: 12-14-2021 VITAMIN D 25 HYDROXY [facility] Work Phone: Comment on above: Expected: 10/14/2021, Expires: 2 Start: 08-31-2021 COVID-19 VACCINE (4 - Booster for Pfizer series) COVID-19 VACCINE (4 - Booster for Pfizer series) [facility] Start: 06-28-2021 COVID-19 VACCINE (4 - Booster for Pfizer series) COVID-19 VACCINE (4 - Booster for Pfizer series) [facility] Start: 06-19-2021 DEPRESSION ASSESSMENT DEPRESSION ASSESSMENT [facility] Start: 02-17-2021 Influenza vaccination INFLUENZA (#1) [facility] Start: 12-22-2020 Hepatitis B surface antibody level LDL CHOLESTEROL [facility] Start: 10-26-2019 FECAL OCCULT BLOOD FECAL OCCULT BLOOD [facility] Start: 10-26-2019 Screening for malignant neoplasm of colon Fecal Occult Blood [facility] Start: 05-22-2019 Adult depression screening assessment DEPRESSION SCREENING [facility] Start: 2017 RSV Vaccine (1 - 1-dose 60+ series) RSV Vaccine (1 - 1-dose 60+ series) [facility] Start: 2017 RSV Vaccine (1 - Risk 60-74 years 1-dose series) RSV Vaccine (1 - Risk 60-74 years 1-dose series) [facility] Start: 06-13-2017 End: 06-13-2017 Appointment Appointment [facility] Work Phone: Start: 12-16-2016 End: 06-01-2017 *Hepatic Function Panel *Hepatic Function Panel [facility] Work Phone: Start: 12-16-2016 End: 06-01-2017 Lipid panel [AGGREGATE] *Lipid Profile CC PCP [facility] Work Phone: Start: 12-14-2016 End: 12-14-2016 Follow Up Appt 6 months Follow Up Appt 6 months [facility] Work Phone: Start: 12-14-2016 End: 06-01-2017 Follow Up Appt Other Follow Up Appt Other [facility] Work Phone: Start: 12-14-2016 End: 12-14-2016 MMM MMM [facility] Work Phone: Start: 08-17-2016 End: 08-17-2016 Follow Up Appt 3 months Follow Up Appt 3 months [facility] Work Phone: Start: 08-17-2016 End: 08-17-2016 MMM MMM [facility] Work Phone: Start: 01-04-2016 End: 01-04-2016 Ct thorax w/dye CT Chest with Contrast [facility] Work Phone: Start: 01-04-2016 End: 01-04-2016 Echocardiography Echocardiogram (complete) [facility] Work Phone: Start: 01-04-2016 End: 01-04-2016 Electrocardiogram, complete EKG (In office) [facility] Work Phone: Start: 01-04-2016 End: 01-04-2016 Follow Up Appt Other Follow Up Appt Other [facility] Work Phone: Start: 01-04-2016 End: 01-04-2016 Nuclear stress test -exercise Nuclear stress test -exercise [facility] Work Phone: Start: 10-19-2015 End: 11-22-2016 *Hepatic Function Panel *Hepatic Function Panel [facility] Work Phone: Start: 10-19-2015 End: 11-22-2016 Lipid panel [AGGREGATE] *Lipid Profile CC PCP [facility] Work Phone: Start: 04-24-2015 End: 04-20-2015 *Hepatic Function Panel *Hepatic Function Panel [facility] Work Phone: Start: 04-24-2015 End: 04-20-2015 Lipid panel [AGGREGATE] *Lipid Profile CC PCP [facility] Work Phone: Start: 03-31-2015 End: 04-20-2015 *Hepatic Function Panel *Hepatic Function Panel [facility] Work Phone: Start: 03-31-2015 End: 03-31-2015 Follow Up Appt 6 months Follow Up Appt 6 months [facility] Work Phone: Start: 03-31-2015 End: 04-20-2015 Lipid panel [AGGREGATE] *Lipid Profile CC PCP [facility] Work Phone: Start: 03-31-2015 End: 03-31-2015 PFM PFM [facility] Work Phone: Start: 03-31-2015 End: 04-20-2015 Thyroid stimulating hormone (TSH) *TSH [facility] Work Phone: Start: 03-31-2015 End: 04-20-2015 Thyroxine (T4) *T4 (Total) [facility] Work Phone: Start: 01-08-2015 End: 01-09-2015 BNP *Brain Natriuretic Peptide BNP [facility] Work Phone: Start: 01-08-2015 End: 03-25-2015 Follow Up Appt Other Follow Up Appt Other [facility] Work Phone: Start: 09-29-2014 End: 10-22-2014 *Hepatic Function Panel *Hepatic Function Panel [facility] Work Phone: Start: 09-29-2014 End: 10-22-2014 Lipid panel [AGGREGATE] *Lipid Profile CC PCP [facility] Work Phone: Start: 09-22-2014 End: 09-22-2014 Follow Up Appt 6 months Follow Up Appt 6 months [facility] Work Phone: Start: 09-22-2014 End: 09-22-2014 Follow Up BP Check Follow Up BP Check [facility] Work Phone: Start: 09-22-2014 End: 09-22-2014 MMM MMM [facility] Work Phone: Start: 03-24-2014 End: 03-24-2014 Follow Up Appt 6 months Follow Up Appt 6 months [facility] Work Phone: Start: 03-24-2014 End: 03-24-2014 Follow Up Appt Other Follow Up Appt Other [facility] Work Phone: Start: 03-24-2014 End: 03-24-2014 PFM PFM [facility] Work Phone: Start: 03-19-2014 End: 03-31-2014 *Hepatic Function Panel *Hepatic Function Panel [facility] Work Phone: Start: 03-19-2014 End: 03-31-2014 Lipid panel [AGGREGATE] *Lipid Profile CC PCP [facility] Work Phone: Start: 12-04-2013 End: 12-04-2013 *BMP *BMP [facility] Work Phone: Start: 12-04-2013 End: 12-04-2013 CBC W Auto Differential panel - Blood *CBC without Diff [facility] Work Phone: Start: 12-04-2013 End: 03-25-2015 Chest x-ray X-Ray, Chest, PA & Lateral [facility] Work Phone: Start: 12-04-2013 End: 12-04-2013 Coagulation factor induced.INR assay in platelet poor plasma *PT/INR [facility] Work Phone: Start: 12-04-2013 End: 03-12-2014 Electrocardiogram, complete EKG (In office) [facility] Work Phone: Start: 12-04-2013 End: 12-04-2013 Left Heart Cath Left Heart Cath [facility] Work Phone: Start: 12-02-2013 End: 12-05-2013 Stress Echocardiogram (treadmill) Stress Echocardiogram (treadmill) [facility] Work Phone: Start: 10-30-2013 End: 01-08-2015 Follow Up Appt Other Follow Up Appt Other [facility] Work Phone: Start: 09-04-2013 End: 09-16-2013 *Hepatic Function Panel *Hepatic Function Panel [facility] Work Phone: Start: 09-04-2013 End: 09-04-2013 Follow Up Appt 6 months Follow Up Appt 6 months [facility] Work Phone: Start: 09-04-2013 End: 01-08-2015 Follow Up Appt Other Follow Up Appt Other [facility] Work Phone: Start: 09-04-2013 End: 09-16-2013 Lipid panel [AGGREGATE] *Lipid Profile CC PCP [facility] Work Phone: Start: 09-04-2013 End: 09-04-2013 MMM MMM [facility] Work Phone: Start: 06-17-2013 End: 09-16-2013 *Hepatic Function Panel *Hepatic Function Panel [facility] Work Phone: Start: 06-17-2013 End: 09-16-2013 Lipid panel [AGGREGATE] *Lipid Profile CC PCP [facility] Work Phone: Start: 04-19-2013 PNEUMOCOCCAL (2 - PCV) PNEUMOCOCCAL (2 - PCV) [facility] Start: 01-30-2013 End: 01-30-2013 Arterial exam Arterial exam [facility] Work Phone: Start: 01-30-2013 End: 01-30-2013 Follow Up Appt 6 months Follow Up Appt 6 months [facility] Work Phone: Start: 01-30-2013 End: 01-30-2013 PFM PFM [facility] Work Phone: Start: 01-30-2013 End: 01-30-2013 Pulmonary Fuction Test - complete Pulmonary Fuction Test - complete [facility] Work Phone: Start: 12-17-2012 End: 12-17-2012 *BMP *BMP [facility] Work Phone: Start: 12-17-2012 End: 12-02-2013 CBC W Auto Differential panel - Blood *CBC without Diff [facility] Work Phone: Start: 12-17-2012 End: 12-02-2013 Chest x-ray X-Ray, Chest, PA & Lateral [facility] Work Phone: Start: 12-17-2012 End: 12-02-2013 Coagulation factor induced.INR assay in platelet poor plasma [facility] Work Phone: Start: 12-17-2012 End: 12-17-2012 Electrocardiogram, complete EKG (In office) [facility] Work Phone: Start: 12-17-2012 End: 12-02-2013 Follow Up Appt Other Follow Up Appt Other [facility] Work Phone: Start: 12-17-2012 End: 12-02-2013 Left Heart Cath Left Heart Cath [facility] Work Phone: Start: 12-17-2012 End: 12-02-2013 PFM PFM [facility] Work Phone: Start: 2012 End: 12-17-2012 *Hepatic Function Panel *Hepatic Function Panel [facility] Work Phone: Start: 2012 End: 2012 Cardiac Rehab Cardiac Rehab [facility] Work Phone: Start: 2012 End: 10-23-2012 Electrocardiogram, complete EKG (In office) [facility] Work Phone: Start: 2012 End: 2012 Follow Up Appt Other Follow Up Appt Other [facility] Work Phone: Start: 2012 End: 12-17-2012 Lipid panel [AGGREGATE] *Lipid Profile [facility] Work Phone: Start: 09-03-2012 End: 09-04-2012 *BMP *BMP [facility] Work Phone: Start: 09-03-2012 End: 09-03-2012 aPTT *PTT-Partial Thromboplastin Time [facility] Work Phone: Start: 09-03-2012 End: 09-03-2012 aPTT Coag time (PPP) *PTT-Partial Thromboplastin Time [facility] Work Phone: Start: 09-03-2012 End: 09-04-2012 CBC W Auto Differential panel - Blood *CBC without Diff [facility] Work Phone: Start: 09-03-2012 End: 09-04-2012 Chest x-ray X-Ray, Chest, PA & Lateral [facility] Work Phone: Start: 09-03-2012 End: 09-03-2012 Coagulation factor induced.INR assay in platelet poor plasma *PT/INR [facility] Work Phone: Start: 09-03-2012 End: 09-04-2012 Electrocardiogram, complete EKG (In office) [facility] Work Phone: Start: 09-03-2012 End: 2012 Follow Up Appt Other Follow Up Appt Other [facility] Work Phone: Start: 09-03-2012 End: 09-04-2012 Left Heart Cath Left Heart Cath [facility] Work Phone: Start: 09-03-2012 End: 2012 MMM MMM [facility] Work Phone: Start: 08-21-2012 End: 2012 *BMP *BMP [facility] Work Phone: Start: 08-21-2012 End: 2012 aPTT *PTT-Partial Thromboplastin Time [facility] Work Phone: Start: 08-21-2012 End: 2012 aPTT Coag time (PPP) *PTT-Partial Thromboplastin Time [facility] Work Phone: Start: 08-21-2012 End: 2012 CBC W Auto Differential panel - Blood *CBC without Diff [facility] Work Phone: Start: 08-21-2012 End: 2012 Chest x-ray X-Ray, Chest, PA & Lateral [facility] Work Phone: Start: 08-21-2012 End: 2012 Coagulation factor induced.INR assay in platelet poor plasma *PT/INR [facility] Work Phone: Start: 08-21-2012 End: 2012 Electrocardiogram, complete EKG (In office) [facility] Work Phone: Start: 08-21-2012 End: 08-21-2012 Left Heart Cath Left Heart Cath [facility] Work Phone: Start: 07-18-2012 End: 07-18-2012 Echocardiography Echocardiogram (complete) [facility] Work Phone: Start: 07-18-2012 End: 07-18-2012 Electrocardiogram, complete EKG (In office) [facility] Work Phone: Start: 07-18-2012 End: 07-18-2012 Follow Up Appt 6 months Follow Up Appt 6 months [facility] Work Phone: Start: 07-18-2012 End: 07-18-2012 Nuclear stress test -exercise Nuclear stress test -exercise [facility] Work Phone: Start: 07-18-2012 End: 07-18-2012 PFM PFM [facility] Work Phone: Start: 09-22-2007 SHINGRIX VACCINE (1 of 2) SHINGRIX VACCINE (1 of 2) [facility] Start: 2002 COLOGUARD (FIT-DNA) COLOGUARD (FIT-DNA) [facility] Start: [address] COLONOGRAPHY [facility] Start: 2002 Screening for malignant neoplasm of colon [facility] Start: 2002 SIGMOIDOSCOPY SIGMOIDOSCOPY [facility] Start: 1976 Urine microalbumin profile [facility] Start: 09-22-1975 BP CONTROLLED (<130/80) BP CONTROLLED (<130/80) [facility] Start: 09-22-1975 HIV SCREENING HIV SCREENING [facility] 24 Hour ECG [facility] Work Phone: Acetaminophen [Mass/volume] in Unspecified specimen [facility] Ambulatory ECG [facility] Clostridioides diffi cile toxin genes [Presence] in Stool by ASHLEY with probe detection C. DIFFICILE PCR Lab Routine Diarrhea, unspecified type LLQ pain Chronic RLQ pain Ordered: 03/08/2024 [facility] Comment on above: Ordered: 03/08/2024 End: 04-07-2025 CT Abdomen and Pelvis W contrast IV [facility] Comment on above: 1 Occurrences starting 03/08/2024 until 04/07/2025 End: 01-11-2025 CTA Chest vessels WO and W contrast IV CTA CHEST (NONGATED) WO/W IVCON Radiology STAT Chest pain on breathing 1 Occurrences starting 12/13/2023 until 01/11/2025 [facility] Work Phone: Comment on above: 1 Occurrences starting 12/13/2023 until 01/11/2025 End: 01-11-2025 CTA Pulmonary arteries for pulmonary embolus W contrast IV CT CHEST W IVCON PE Radiology STAT Chest pain on breathing 1 Occurrences starting 12/13/2023 until 01/11/2025 [facility] Work Phone: Comment on above: 1 Occurrences starting 12/13/2023 until 01/11/2025 ENTERIC BACTERIAL PA AUBREE BY PCR ENTERIC BACTERIAL PANEL BY PCR Lab Routine Diarrhea, unspecified type Ordered: 03/08/2024 [facility] Comment on above: Ordered: 03/08/2024 FECAL LACTOFERRIN/LEUKOCYTES FECAL LACTOFERRIN/LEUKOCYTES Lab Routine Diarrhea, unspecified type Ordered: 03/08/2024 [facility] Comment on above: Ordered: 03/08/2024 Giardia lamblia+Cryptosporidium sp Ag [Presence] in Stool by Immunoassay CRYPTOSPORIDIUM AND GIARDIA ANTIGENS BY EIA Microbiology Routine Diarrhea, unspecified type Ordered: 03/08/2024 [facility] Comment on above: Ordered: 03/08/2024 Magnesium [Mass/volu me] in Serum or Plasma [facility] NM Heart Views W str ess and W radionuclide IV [facility] Work Phone: NM Heart Views W str ess and W radionuclide IV [facility] Patient Education [facility] [employer] [facility] Work Phone: Patient referral [facility] Work Phone: Respiratory pathogen s DNA and RNA panel - Respiratory specimen by ASHLEY with probe detection [facility] Work Phone: [facility] End: 07-24-2025 XR Chest PA and Lateral XR CHEST 2V FRONTAL/LAT Radiology Routine Bacterial pneumonia 1 Occurrences starting 06/24/2024 until 07/24/2025 [facility] Work Phone: Comment on above: 1 Occurrences starting 06/24/2024 until 07/24/2025 [facility] Immunizations Immunization Date Immunization Notes Care Provider Mookie morrison 11-29-2023 pneumococcal Conjuga te, unspecified formulation Jagjit Chemea MD Work Phone: [facility] Work Phone: 11-29-2023 pneumococcal conjuga te (PCV20) vaccine, 20 valent (PREVNAR 20) Jagjit Cheema MD Work Phone: [facility] 07-26-2023 COVID-19 vaccine, ag e 12+ yr, season ([employer]) Jagjit Cheema MD Work Phone: [facility] 07-26-2023 influenza (HD-IIV4) vaccine, age 65+ yr, high dose, quadrivalent, PF (FLUZONE HIGH-DOSE) Jagjit Cheema MD Work Phone: [facility] 07-26-2023 influenza virus vacc ine, unspecified formulation Jagjit Cheema MD Work Phone: [facility] 05-03-2021 Covid (Pfizer) Dr. Jagjit marcum Work Phone: [facility] 09-14-2020 Covid (Pfizer) Dr. Jagjit marcum Work Phone: [facility] 08-24-2020 Covid (Pfizer) Dr. Jagjit marcum Work Phone: [facility] 07-11-2019 influenza, injectabl e, quadrivalent, preservative free [facility] 07-11-2019 influenza, seasonal, injectable Dr. Jagjit Cheema Work Phone: [facility] 07-11-2019 influenza, seasonal, injectable, preservative free Oliva Mayitoanc PA-C Work Phone: [facility] 07-11-2019 influenza virus vacc ine, unspecified formulation Jagjit Cheema MD Work Phone: [facility] 05-01-2015 influenza, injectabl e, quadrivalent, preservative free [facility] 05-01-2015 influenza, seasonal, injectable Dr. Jagjit Cheema Work Phone: [facility] 05-01-2015 influenza, seasonal, injectable, preservative free Oliva Mykeblanc PA-C Work Phone: [facility] 04-29-2015 influenza, seasonal, injectable Oliva Mykeblanc PA-C Work Phone: [facility] 05-20-2013 influenza virus vacc ine, unspecified formulation Oliva Mattanblanc PA-C Work Phone: [facility] 04-19-[address] Jagjit Cheema Work Phone: [facility] 04-19-2013 influenza, seasonal, injectable, preservative free Oliva Mykeblanc PA-C Work Phone: [facility] 04-19-2012 pneumococcal polysaccharide vaccine, 23 valent Oliva Stringerblanc PA-C Work Phone: [facility] 04-19-[address] Apollo Cheema Work Phone: [facility] Work Phone: 04-19-2012 pneumococcal vaccine , unspecified formulation [facility] 03-18-2011 influenza virus vacc ine, unspecified formulation Oliva Jeanblanc PA-C Work Phone: [facility] Work Phone: 03-18-2011 pneumococcal polysaccharide vaccine, 23 valent Oliva Jeanblanc PA-C Work Phone: [facility] Work Phone: Payers Date Payer Category Payer Self-pay [id number] 2022 Blue Cross Blue [facility] ANTHEM ME DICARE SUPPLEMENT Member Subscriber Plan / Payer (Effective 2022-Present) Name: Lazaro Garzon Relation to Subscriber: Self Name: Lazaro Garzon Payer ID: [id number] (NAIC) Group ID: [id number] Type: Indemnity Address: [address] [place] [id number] 2022 Unknown ANTHEM ANTHEM ME DICARE SUPPLEMENT [id number] 2022-Present [phone] [address] [place] [address] Indemnity [id number] 2022 Unknown [id number] 2022 Medicare [id number] 2022 Medicare [id number] 2019 Private Health Insurance [employer] TELLES PPO [id number] 2019-Present [phone] [address] [place] [address] PPO [id number] 2019 Private Health Insurance [id number] 2013 Private Health Insurance [id number] Unknown [id number] Unknown [id number] Unknown [id number] Unknown [id number] Unknown [id number] Unknown [id number] Unknown [id number] Unknown [id number] Unknown [id number] Unknown [id number] Unknown [id number] Social History Date Type Detail Facility Start: 02-12-2022 End: 03-08-2024 Tobacco smoking status NHIS Ex-smoker [facility] Work Phone: Start: 02-08-1982 End: 02-08-1987 History of tobacco use Current smoker [facility] Start: 02-08-1982 End: 02-08-1987 History of tobacco use Cigarette Smoker [facility] End: 12-03-2017 History of tobacco use Chews Tobacco [facility] Start: 04-28-2020 End: 09-04-2021 Alcohol intake Current drinker of alcohol (finding) [facility] Start: 05-24-2020 End: 09-04-2021 Alcohol intake [facility] Start: 05-04-2016 History SDOH Alcohol Comment rare [facility] Start: 09-06-2013 End: 02-12-2022 Tobacco Comment patient smoked for a few months in 2006 [facility] Start: 1955 Sex Assigned At Not on file [facility] Start: 03-29-2020 End: 12-11-2021 Exposure to SARS-CoV-2 (event) Not sure [facility] Start: 10-20-2021 End: 07-05-2023 Tobacco smoking status NHIS Unknown if ever smoked [facility] Start: 02-29-2020 Occasional [facility] Start: 02-28-2020 None [facility] Start: 02-29-2020 Spouse/ Significant Other [facility] Start: 02-29-2020 Non-smoker [facility] Start: 1955 Sex Assigned At Male [facility] Start: 11-29-2021 History SDOH Alcohol Frequency 98 [facility] Start: 11-29-2021 History SDOH Physical Activity DPW 0 [facility] Start: 11-29-2021 History SDOH Housing Unable to Pay 3 [facility] Start: 04-30-2019 End: 02-12-2022 Tobacco use and exposure User of smokeless tobacco [facility] Work Phone: Start: 12-15-2022 End: 03-08-2024 Tobacco use and exposure Former smokeless tobacco user [facility] Start: 12-19-2022 End: 11-18-2024 Alcohol intake Ex-drinker (finding) [facility] Start: 12-15-2022 Tobacco Comment patient smoked for a few months in 2006Quit chew June 2022 [facility] Start: 05-24-2020 End: 11-29-2021 Social connection and isolation panel [facility] In a typical week, h ow many times do you talk on the telephone with family, friends, or neighbors? Patient refused [facility] Are you now , , , , never or living with a partner? Refused [facility] (I/We) worried tien er (my/our) food would run out before (I/we) got money to buy more. DK or Refused [facility] Do you belong to any clubs or organizations such as spiritism groups, unions, fraternal or athletic groups, or school groups? Yes [facility] Are you now , , , , never or living with a partner? [facility] How often to you hav e a drink containing alcohol? Monthly or less [facility] How many standard dr inks containing alcohol do you have on a typical day? 1 or 2 [facility] How often do you hav e 6 or more drinks on 1 occasion? Never [facility] Do you feel stress - tense, restless, nervous, or anxious, or unable to sleep at night because your mind is troubled all the time - these days [OSQ] Very much [facility] (I/We) worried wheth er (my/our) food would run out before (I/we) got money to buy more. Never true [facility] Medical Equipment Procedure Code Equipment Code Equipment Original Text Equipment Identifier Dates Pros Penl Ams 70 0 Acc Kt - [id number] Start: 01-29-2015 Pros Penl Ams 70 0ms 18cm - [id number] Start: 01-29-2015 Pros Penl 700cx 3cm Rear Tip - [id number] Start: 01-29-2015 Pros Penl Ams 70 0ms Resvr 65ml - [id number] Start: 01-29-2015 PENILE IMPLANT FDA Start: PENILE IMPLANT FDA Start: PENILE IMPLANT FDA Start: PENILE IMPLANT FDA Start: PENILE IMPLANT FDA Start: PENILE IMPLANT FDA Start: PENILE IMPLANT FDA Start: PENILE IMPLANT FDA Start: PENILE IMPLANT FDA Start: PENILE IMPLANT FDA Start: PENILE IMPLANT FDA Start: PENILE IMPLANT FDA Start: PENILE IMPLANT FDA Start: PENILE IMPLANT FDA Start: Mesh Parietex 6. 6cm Small Collagen Surgical Patch [facility] - [id number] Start: 07-19-2023 PENILE IMPLANT FDA Start: Inject 1 Each intramuscularly one time a week. Uses 4 syringes per month with testosterone injections [id number] Start: 06-11-2019 End: 06-10-2020 PENILE IMPLANT FDA Start: Goals Date Patient Goal Desired Activity /State Functional Status Date Assessment Result Facility 12-16-2022 Functional status Ambulates;Up a d melony;Bathroom Privilege [facility] Work Phone: 01-30-2015 Are you deaf, or do you have serious difficulty hearing No 01/30/2015 8:32 AM Jany NewRn) (Hist), RN No [facility] 01-30-2015 Are you blind, or do you have serious difficulty seeing, even when wearing glasses No 01/30/2015 8:32 AM Jany NewRn) (Hist), RN No [facility] 01-30-2015 Do you have serious difficulty walking or climbing stairs No 01/30/2015 8:32 AM Jany NewRn) (Hist), RN No [facility] 01-30-2015 Do you have difficul ty dressing or bathing No 01/30/2015 8:32 AM Jany NewRn) (Hist), RN No [facility] 01-30-2015 Because of a physica l, mental, or emotional condition, do you have difficulty doing errands alone such as visiting a physician's office or shopping No 01/30/2015 8:32 AM Jany New) (Hist), RN No [facility] Mental Status Date Assessment Result Facility 12-16-2022 Cognitive function Appropriate;Cooperativ e [facility] Work Phone: 12-15-2022 Cognitive function Level Of Cons ciousness Awake;Alert;Appropriate;Fol lows Commands [facility] Work Phone: 12-14-2022 Cognitive function Level Of Cons ciousness Awake;Alert;Appropriate;Fol lows Commands [facility] Work Phone: 05-07-2022 Cognitive function Level Of Cons ciousness Awake;Alert;Appropriate;Fol lows Commands [facility] Work Phone: 02-12-2022 Cognitive function Level Of Cons ciousness Awake;Alert;Appropriate;Fol lows Commands [facility] Work Phone: 01-30-2015 Because of a physica l, mental, or emotional condition, do you have serious difficulty concentrating, remembering, or making decisions No 01/30/2015 8:32 AM EDT Jany Kruse (Rn) (Hist), RN No [facility] Clinical Notes 02-08-2007 to 11-18-2024 Faustino Pineda RT(R) - 11/18/2024 12:50 PM EDTHSusan aguilera APRN.EDGE POLISHER - 11/18/2024 12:29 PM EDTPatient InstructionsTelephone Encounter - Jagjit Cheema MD - 10/28/2024 8:57 AM EDT Note Date & Type Note Facility 11-18-2024 History of Presen t illness Narrative Radiology Service Progress Note PATIENT NAME: Lazaro Garzon DATE OF SERVICE: November 18, 2024 TIME: 12:57 PM PATIENT IDENTITY VERIFICATION COMPLETED USING TWO (2) IDENTIFIERS: Name and Date of confirmed by patient verbally. FALL SCREENING: Has the patient had 2 falls in the last year or 1 fall with injury or currently using an Ambulatory Assistive Device (Walker, Cane, Wheelchair, Crutches, etc.)? No PATIENT GENDER DATA: Assigned male at PATIENT RELEVANT IMPLANT DATA REVIEWED: Yes PATIENT PRESENTS WITH AN IMPLANTABLE OR ATTACHED TRUST MANAGER ASSISTANT: No RADIOLOGY DEPARTMENT: General X-ray: Exam(s) Completed: Chest X-Ray PERIPHERAL IV DATA: Not applicable SIGNED BY: RT Mariann(R) November 18, 2024 12:57 PM documented in this encounter [facility] 11-18-2024 Note HNO ID: [id number] Author: FAUSTINO PINEDA RT(R) Service: ? Author Type: Medieval English Literature Professor Type: Progress Notes Filed: 11/18/2024 13:05 Note Text: Radiology Service Progress Note PATIENT NAME: Lazaro Garzon DATE OF SERVICE: November 18, 2024 TIME: 12:57 PM PATIENT IDENTITY VERIFICATION COMPLETED USING TWO (2) IDENTIFIERS: Name and Date of confirmed by patient verbally. FALL SCREENING: Has the patient had 2 falls in the last year or 1 fall with injury or currently using an Ambulatory Assistive Device (Walker, Cane, Wheelchair, Crutches, etc.)? No PATIENT GENDER DATA: Assigned male at PATIENT RELEVANT IMPLANT DATA REVIEWED: Yes PATIENT PRESENTS WITH AN IMPLANTABLE OR ATTACHED TRUST MANAGER ASSISTANT: No RADIOLOGY DEPARTMENT: General X-ray: Exam(s) Completed: Chest X-Ray PERIPHERAL IV DATA: Not applicable SIGNED BY: Faustino Pineda, RT(R) November 18, 2024 12:57 PM [facility] 11-18-2024 Note HNO ID: [id number] Author: SUSAN KERR APRN.EDGE POLISHER Service: ? Author Type: Nurse Practitioner Type: Progress Notes Filed: 11/18/2024 12:38 Note Text: This is a 69 year old male who presents today with: Lazaro is a 69-year-old male with a history of asthma, presenting with dyspnea, fatigue, and back pain. HISTORY OF PRESENT ILLNESS: Dyspnea: - Dyspnea on exertion x2 weeks. - Notable episodes include walking up a steep hill, resulting in near-syncope, tachycardia (150's per watch) and facial numbness. - Denies chest pain during these episodes. - Reports difficulty breathing with deep inhalation. - Using albuterol inhaler; asthma has been acting up quite a bit. 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 Cheema. - Unable to maintain usual walking pace - Denies recent illness, fever, or chills. Pneumonia: - History of recurrent pneumonia, most recently in May. - Pt reports that symptoms similar to previous pneumonia episodes. - Taking Claritin and inhaler for symptom relief. - Reports a persistent headache. PAST MEDICAL HISTORY: PAST MEDICAL HISTORY Diagnosis [...] Right 1988 LAPS SURG CHOLECYSTECTOMY W/CHOLANGIOGRAPHY 2004 [facility] - Dr. 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 EPIGASTRIC HERNIA,REDUC 07/19/2023 umbilical TONSILLECTOMY PRIMARY/SECONDARY Tonsillectomy ALLERGIES Sulfa (Sulfonamide Antibiotics) MEDICATIONS Current Outpatient Medications Medication Sig doxycycline (VIBRA-TABS) 100 mg tablet Take 1 tablet by mouth two times a day for 10 days. predniSONE (DELTASONE) 20 mg tablet Take 1 tablet by mouth once daily for 5 days. Take daily with food. finasteride (PROSCAR) 5 mg tablet Take 5 mg by mouth once daily. atomoxetine (STRATTERA) 40 mg capsule Take 1 capsule by mouth once daily. For one week and then back to 80 mg a day. Start once the pristiq is done. esomeprazole (NEXIUM) 40 mg capsule Take 1 capsule by mouth two times a day before meals. losartan (COZAAR) 100 mg tablet Take 1 tablet by mouth once daily. tiZANidine (ZANAFLEX) 4 mg tablet Take 4 mg by mouth. potassium chloride (K-TAB) 10 mEq tablet Take 2 tablets by mouth once daily. albuterol HFA (PROAIR HFA) 90 mcg/actuation inhaler Inhale 2 Puffs as instructed every 4 hours as needed (FOR COUGH OR WHEEZE). aspirin, enteric coated (ASPIRIN, ENTERIC COATED) 81 mg EC tablet Take 1 tablet by mouth once daily. tamsulosin (FLOMAX) 0.4 mg amLODIPine (NORVASC) 5 mg tablet Take 1 tablet by mouth once daily. testosterone (ANDROGEL PUMP) 20.25 mg/1.25 gram (1.62 %) transdermal gel APPLY 4 PUMPS TOPICALLY DAILY. oxyCODONE-acetaminophen 5-325 mg (PERCOCET) as needed. CPAP Requires replacement machine at same settings. [...] Mother Breast Cancer Mother Heart Father of [place] Allergies Father Asthma Daughter Allergies Sister Allergies Brother Allergies Daughter Social History Tobacco Use Smoking status: Former Current packs/day: 0.00 Average packs/day: 2.0 packs/day for 5.0 years (10.0 ttl pk-yrs) Types: Cigarettes Start date: 02/08/1982 Quit date: 02/08/1987 Years [facility] (more content not included)... [facility] 11-18-2024 History of Presen t illness Narrative This is a 69 year old male who presents today with: Lazaro is a 69-year-old male with a history of asthma, presenting with dyspnea, fatigue, and back pain. HISTORY OF PRESENT ILLNESS: Dyspnea: - Dyspnea on exertion x2 weeks. - Notable episodes include walking up a steep hill, resulting in near-syncope, tachycardia (150's per watch) and facial numbness. - Denies chest pain during these episodes. - Reports difficulty breathing with deep inhalation. - Using albuterol inhaler; asthma has been acting up quite a bit. 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 Cheema. - Unable to maintain usual walking pace - Denies recent illness, fever, or chills. Pneumonia: - History of recurrent pneumonia, most recently in May. - Pt reports that symptoms similar to previous pneumonia episodes. - Taking Claritin and inhaler for symptom relief. - Reports a persistent headache. PAST MEDICAL HISTORY: PAST MEDICAL HISTORY Diagnosis [...] Right 1988 LAPS SURG CHOLECYSTECTOMY W/CHOLANGIOGRAPHY 2004 [facility] - Dr. 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 EPIGASTRIC HERNIA,REDUC 07/19/2023 umbilical TONSILLECTOMY PRIMARY/SECONDARY <AGE 12 Tonsillectomy ALLERGIES Sulfa (Sulfonamide Antibiotics) MEDICATIONS Current Outpatient Medications Medication Sig doxycycline (VIBRA-TABS) 100 mg tablet Take 1 tablet by mouth two times a day for 10 days. predniSONE (DELTASONE) 20 mg tablet Take 1 tablet by mouth once daily for 5 days. Take daily with food. finasteride (PROSCAR) 5 mg tablet Take 5 mg by mouth once daily. atomoxetine (STRATTERA) 40 mg capsule Take 1 capsule by mouth once daily. For one week and then back to 80 mg a day. Start once the pristiq is done. esomeprazole (NEXIUM) 40 mg capsule Take 1 capsule by mouth two times a day before meals. losartan (COZAAR) 100 mg tablet Take 1 tablet by mouth once daily. tiZANidine (ZANAFLEX) 4 mg tablet Take 4 mg by mouth. potassium chloride (K-TAB) 10 mEq tablet Take 2 tablets by mouth once daily. albuterol HFA (PROAIR HFA) 90 mcg/actuation inhaler Inhale 2 Puffs as instructed every 4 hours as needed (FOR COUGH OR WHEEZE). aspirin, enteric coated (ASPIRIN, ENTERIC COATED) 81 mg EC tablet Take 1 tablet by mouth once daily. tamsulosin (FLOMAX) 0.4 mg amLODIPine (NORVASC) 5 mg tablet Take 1 tablet by mouth once daily. testosterone (ANDROGEL PUMP) 20.25 mg/1.25 gram (1.62 %) transdermal gel APPLY 4 PUMPS TOPICALLY DAILY. oxyCODONE-acetaminophen 5-325 mg (PERCOCET) as needed. CPAP Requires replacement machine at same settings. [...] Mother Breast Cancer Mother Heart Father of [place] Allergies Father Asthma Daughter Allergies Sister Allergies Brother Allergies Daughter Social History Tobacco Use Smoking status: Former Current packs/day: 0.00 Average packs/day: 2.0 packs/day for 5.0 years (10.0 ttl pk-yrs) Types: Cigarettes Start date: 02/08/1982 Quit date: 02/08/1987 Years since quittin.8 Smokeless tobacco: Former Types: Chew Quit date: 12/03/2017 Tobacco comments: patient smoked for a few months in 2006 Quit chew June 2022 Vaping Use Vaping status: Never Used Substance Use Topics Alcohol use: Not Currently Drug use: Not Currently Comment: marijuana in past not since 20 y/o REVIEW OF SYSTEMS Constitutional: (+) fatigue, (-) fever, (-) chills Head: (+) headache, (+) jaw pain Ears/Nose/Mouth/Throat: (-) rhinorrhea Neck: (+) neck pain Cardiovascular: (-) chest pain Respiratory: (+) dyspnea, (+) dry cough, (+) wheezing, (+) pleuritic chest burning, (-) productive cough Musculoskeletal: (+) back pain Neurological: (+) lightheadedness, (+) facial numbness EXAM: BP 158/80 Pulse 72 Temp 37.3 C (99.2 F) Resp 16 SpO2 95% PHYSICAL EXAM: General Appearance: Well appearing, alert, in no acute distress, well-hydrated, well nourished.. Skin: Skin color, texture, turgor normal, no suspicious rashes or lesions. Head: Normocephalic, no masses, lesions, tenderness or abnormalities. Eyes: Anicteric sclera. Pupils are equally round and reactive to light. Extraocular movements are intact. . Ears: External ears normal, canals clear. Normal TMs bilaterally. Oropharynx: Lips, mucosa, and tongue normal, teeth and gums normal, oropharynx normal. Neck: Supple, no adenopathy; thyroid symmetric, normal size, no bruits. Lungs: Lungs clear to auscultation. No wheezing, rhonchi, rales.. Heart: RRR without murmur, gallop, or rubs. No ectopy. Neurologic: Gait normal. ASSESSMENT/PLAN 1. Bronchitis (J40) 2. SOB (shortness of breath) (R06.02) 3. Acute cough (R05.1) - Symptoms include dyspnea, fatigue, and a dry cough with occasional burning sensation on deep inspiration. - Differential diagnosis includes bronchitis and pneumonia. - Ordered chest X-ray to evaluate for pneumonia; results expected later today. - Initiated doxycycline 100 mg PO BID for 10 days. - Prescribed prednisone 40 mg PO daily for 5 days to address underlying asthma exacerbation. - Advised patient that if chest X-ray confirms pneumonia, a second antibiotic may be added. - Patient to continue using albuterol inhaler as needed. - Follow-up will be based on chest X-ray results; patient will be contacted if additional treatment is necessary. Denies chest pain associated w/ symptoms. He does follow with cardiology. He had a negative stress test 11/2023. Discussed if symptoms persist/worsen; or if he is developing chest pain with symptoms, he should follow-up w/ cardiology. Discussed treatment plan and patient voices understanding. Patient's questions answered appropriately. Medications and potential side effects were discussed and patient voices understanding. Return to the office as scheduled or as needed for worsening/no improvement. 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 Patient/authorized utility sales representative agreed to proceed documented in this encounter [facility] 11-18-2024 Instructions Susan Kerr APRN.CNP - 11/18/2024 11:55 AM EDT - Get the chest xray. - Begin doxycycline: take one dose twice daily for 10 days. - Begin prednisone: take one tablet once a day for 5 days. - Continue using your albuterol inhaler and Claritin as you have been. Let us know if no improvement/worsening. documented in this encounter [facility] 10-28-2024 Radiology Diagnostic study note [facility] [address], [place] [address] Abdomen/Pelvis W IV Cont ONLY MR#: [id number] Acct: [id number] Name: LAZARO GARZON Rep #: [id number] : 1955 M 69 From: Yannick Russ MD PCP: Dr. Jagjit Cheema MD Status: REG E R Study:Abdomen/Pelvis W IV Cont ONLY Date of E xam: 10/28/24 Exam# [id number] Ordering Dr: Duncan Mclaughlin DO PROCEDURE: ABDOMEN/PELVIS W IV CONT ONLY 10/28/2024 REASON FOR EXAM: ABDOMINAL PAIN Rectal bleed. TECHNIQUE: Abdomen and pelvis CT with intravenous contrast. Coronal and Sagittal reconstruction series were provided. PATIENT PREPARATION: Per protocol ORAL CONTRAST TYPE: None. CONTRAST: 100 cc of Isovue-300 One or more dose reduction techniques were used (e.g., Automated exposure control, adjustment of the mA and/or kV according to patient size, use of iterative reconstruction technique. RADIATION DOSE SUMMARY: CTDlvol: 15.8 mGy DLP: 1379.88 mGycm COMPARISON: Comparison is made with prior study dated December 14, 2022. FINDINGS: Lung bases: Mild residual linear atelectasis at the lung bases. Coronary arterycalcification. Liver: Diffuse fatty infiltration. Stable 1.2 cm hypodensity in the right lobe of the liver suggestive of a small cyst. Gallbladder: The patient is status post cholecystectomy. Spleen: Borderline splenomegaly. Pancreas: Normal size without evidence of mass surrounding inflammation or ductal dilation. Adrenals: Stable 1.6 cm hypodense nodule in the crux of the left adrenal gland. Kidneys: There is a 5.5 cm by 5.5 cm cyst in the lower pole of the right kidney. Bladder: Penile implant with pump is seen. This is unchanged. The prostate is enlarged measuring 5.6 cm by 5.1 cm. This causes indentation of the bladder base. Bowel: Colonic diverticulosis without diverticulitis. Appendix: Unremarkable Lymph nodes: No suspicious lymph node enlargement. Vasculature: Scattered calcific plaques of the abdominal aorta. Peritoneum / Retroperitoneum: Unremarkable Bones: Degenerative changes of the spine. CT/Abdomen/Pelvis W IV Cont ONLY IMPRESSION: Fatty infiltration of the liver. Stable small hypodensity in the right lobe of the liver. Status post cholecystectomy. Stable right renal cyst. Stable left adrenal nodule suggestive of an adenoma. Sigmoid diverticulosis. OVERALL FINAL ASSESSMENT: . LI-RADS is not meant to be used in patients <18 years or patients with cirrhosisdue to congenital hepatic fibrosis or due to vascular disorders, because these patients have a lower chance of developing HCC. Reading Location: [facility] CC: Dr. Robby Mclaughlin DO; Dr. Jagjit Cheema MD ~ Mobile Pet Groomer: Signed [facility] 10-28-2024 Telephone encounter Note agree [facility] 10-28-2024 Miscellaneous Notes agree Patient returned call and said he has had rectal fissures in the past. Last night he head episode where the toilet was pure red, felt like he lost a pint of blood in the toilet. He is having lower abdominal cramping and nauseated and dizzy, all he we wants to do is sleep. Advised patient that he needs evaluated in the ER and not to drive himself since having dizziness. He said could get a friend to take him to [facility] ER. Attempted to call patient for further triage regarding MC message received today. No answer. VM left for pt to call PCP office back as soon as possible. Ni Hewitt RN documented in this encounter [facility] 10-28-2024 Telephone encounter Note Patient returned call and said he has had rectal fissures in the past. Last night he head episode where the toilet was pure red, felt like he lost a pint of blood in the toilet. He is having lower abdominal cramping and nauseated and dizzy, all he we wants to do is sleep. Advised patient that he needs evaluated in the ER and not to drive himself since having dizziness. He said could get a friend to take him to [facility] ER. [facility] 10-28-2024 Telephone encounter Note Attempted to call patient for further triage regarding [facility] message received today. No answer. VM left for pt to call PCP office back as soon as possible. Ni Hewitt RN [facility] 10-21-2024 Note HNO ID: [id number] Author: JAGJIT CHEEMA MD Service: ? Author Type: Physician Type: Progress Notes Filed: 10/21/2024 09:26 Note Text: Patient presents with: Follow Up HPI: Patient presents today for office visit for follow up. We tapered and stopped straterra and began pristiq. Takes the edge off but feels more foggy. In hind sight he feels the strattera was better. No suicidal ideation. Declines counseling Sleeping is up and down. Platelets are stable. Will follow twice a year. Note was copied and pasted, without alteration from lastov: Asked him to come back because he wrote admitting to worsening depression symptoms. Cries frequently. Not sleeping well. Some issues with ruminating over things. Increased appetite. No suicidal ideation. Not a great support system. Has done counseling before. Bp is up again today. No chest pain or shortness of breath. Latest Ref Rng 09/17/2024 10/18/2024 WBC 3.70 - 11.00 k/uL 4.43 RBC 4.20 - 6.00 m/uL 5.46 Hemoglobin 13.0 - 17.0 g/dL 15.6 Hematocrit 39.0 - 51.0 % 46.8 MCV 80.0 - 100.0 fL 85.7 MCH 26.0 - 34.0 pg 28.6 MCHC 30.5 - 36.0 g/dL 33.3 RDW-CV 11.5 - 15.0 % 13.4 Platelet Count 150 - 400 k/uL 143 (L) 136 (L) MPV 9.0 - 12.7 fL 11.7 Neut% % 68.2 Abs Neut (ANC) 1.45 - 7.50 k/uL 3.02 Lymph% % 20.5 Abs Lymph 1.00 - 4.00 k/uL 0.91 (L) [place]% % 9.0 Abs [place] <0.87 k/uL 0.40 Eosin% % 1.4 Abs Eosin <0.46 k/uL 0.06 Baso% % 0.7 Abs Baso <0.11 k/uL 0.03 Immature Gran % % 0.2 IMMATURE GRANS (ABS) <0.10 k/uL <0.03 NRBC /100 WBC 0.0 Absolute nRBC <0.01 k/uL <0.01 DTYPE Auto Protein, Total 6.3 - 8.0 g/dL 7.4 Albumin 3.9 - 4.9 g/dL 4.4 Calcium 8.5 - 10.2 mg/dL 9.7 Bilirubin, Total 0.2 - 1.3 mg/dL 1.0 Alkaline Phosphatase 38 - 113 U/L 71 AST 14 - 40 U/L 25 ALT 10 - 54 U/L 31 Glucose 74 - 99 mg/dL 117 (H) BUN 9 - 24 mg/dL 12 Creatinine 0.73 - 1.22 mg/dL 1.00 Sodium 136 - 144 mmol/L 141 Potassium 3.7 - 5.1 mmol/L 4.1 Chloride 98 - 107 mmol/L 104 CO2 22 - 30 mmol/L 24 Anion Gap 8 - 15 mmol/L 13 eGFR >=60 mL/min/1.73m? 83 Cholesterol, Total <200 mg/dL 134 Triglyceride <150 mg/dL 292 (H) HDL Cholesterol >39 mg/dL 30 (L) Non HDL Cholesterol <130 mg/dL 104 Fasting Time hrs 12 VLDL Cholesterol <30 mg/dL 58 (H) TC:HDL Ratio <5.10 4.47 LDL Cholesterol, Calculated <100 mg/dL 46 LDL:HDL Ratio <2.54 1.53 WSR 0 - 15 mm/hr 16 (H) Legend: (L) Low (H) High MEDICATIONS: Current Outpatient Medications Medication Sig finasteride (PROSCAR) 5 mg tablet Take 5 mg by mouth once daily. esomeprazole (NEXIUM) 40 mg capsule Take 1 capsule by mouth two times a day before meals. desvenlafaxine ER (PRISTIQ) 50 mg 24 hr tablet Take 1 tablet by mouth once daily. Patient should start on October 04, 2024. atomoxetine (STRATTERA) 40 mg capsule Take 1 capsule by mouth once daily. Then stop losartan (COZAAR) 100 mg tablet Take 1 tablet by mouth once daily. tiZANidine (ZANAFLEX) 4 mg tablet Take 4 mg by mouth. potassium chloride (K-TAB) 10 mEq tablet Take 2 tablets by mouth once daily. albuterol HFA (PROAIR HFA) 90 mcg/actuation inhaler Inhale 2 Puffs as instructed every 4 hours as needed (FOR COUGH OR WHEEZE). aspirin, enteric coated (ASPIRIN, ENTERIC COATED) 81 mg EC tablet Take 1 tablet by mouth once daily. tamsulosin (FLOMAX) 0.4 mg amLODIPine (NORVASC) 5 mg tablet Take 1 tablet by mouth once daily. testosterone (ANDROGEL PUMP) 20.25 mg/1.25 gram (1.62 %) transdermal gel APPLY 4 PUMPS TOPICALLY DAILY. oxyCODONE-acetaminophen 5-325 mg (PERCOCET) as needed. CPAP Requires replacement machine at same settings. [...] 01/24/2019 adenomatous colon polyps, repeat in 3 yea (more content not included)... [facility] 10-21-2024 History of Presen t illness Narrative Patient presents with: Follow Up HPI: Patient presents today for office visit for follow up. We tapered and stopped straterra and began pristiq. Takes the edge off but feels more foggy. In hind sight he feels the strattera was better. No suicidal ideation. Declines counseling Sleeping is up and down. Platelets are stable. Will follow twice a year. Note was copied and pasted, without alteration from lastov: Asked him to come back because he wrote admitting to worsening depression symptoms. Cries frequently. Not sleeping well. Some issues with ruminating over things. Increased appetite. No suicidal ideation. Not a great support system. Has done counseling before. Bp is up again today. No chest pain or shortness of breath. Latest Ref Rng 09/17/2024 10/18/2024 WBC 3.70 - 11.00 k/uL 4.43 RBC 4.20 - 6.00 m/uL 5.46 Hemoglobin 13.0 - 17.0 g/dL 15.6 Hematocrit 39.0 - 51.0 % 46.8 MCV 80.0 - 100.0 fL 85.7 MCH 26.0 - 34.0 pg 28.6 MCHC 30.5 - 36.0 g/dL 33.3 RDW-CV 11.5 - 15.0 % 13.4 Platelet Count 150 - 400 k/uL 143 (L) 136 (L) MPV 9.0 - 12.7 fL 11.7 Neut% % 68.2 Abs Neut (ANC) 1.45 - 7.50 k/uL 3.02 Lymph% % 20.5 Abs Lymph 1.00 - 4.00 k/uL 0.91 (L) [place]% % 9.0 Abs [place] <0.87 k/uL 0.40 Eosin% % 1.4 Abs Eosin <0.46 k/uL 0.06 Baso% % 0.7 Abs Baso <0.11 k/uL 0.03 Immature Gran % % 0.2 IMMATURE GRANS (ABS) <0.10 k/uL <0.03 NRBC /100 WBC 0.0 Absolute nRBC <0.01 k/uL <0.01 DTYPE Auto Protein, Total 6.3 - 8.0 g/dL 7.4 Albumin 3.9 - 4.9 g/dL 4.4 Calcium 8.5 - 10.2 mg/dL 9.7 Bilirubin, Total 0.2 - 1.3 mg/dL 1.0 Alkaline Phosphatase 38 - 113 U/L 71 AST 14 - 40 U/L 25 ALT 10 - 54 U/L 31 Glucose 74 - 99 mg/dL 117 (H) BUN 9 - 24 mg/dL 12 Creatinine 0.73 - 1.22 mg/dL 1.00 Sodium 136 - 144 mmol/L 141 Potassium 3.7 - 5.1 mmol/L 4.1 Chloride 98 - 107 mmol/L 104 CO2 22 - 30 mmol/L 24 Anion Gap 8 - 15 mmol/L 13 eGFR >=60 mL/min/1.73m 83 Cholesterol, Total <200 mg/dL 134 Triglyceride <150 mg/dL 292 (H) HDL Cholesterol >39 mg/dL 30 (L) Non HDL Cholesterol <130 mg/dL 104 Fasting Time hrs 12 VLDL Cholesterol <30 mg/dL 58 (H) TC:HDL Ratio <5.10 4.47 LDL Cholesterol, Calculated <100 mg/dL 46 LDL:HDL Ratio <2.54 1.53 WSR 0 - 15 mm/hr 16 (H) Legend: (L) Low (H) High MEDICATIONS: Current Outpatient Medications Medication Sig finasteride (PROSCAR) 5 mg tablet Take 5 mg by mouth once daily. esomeprazole (NEXIUM) 40 mg capsule Take 1 capsule by mouth two times a day before meals. desvenlafaxine ER (PRISTIQ) 50 mg 24 hr tablet Take 1 tablet by mouth once daily. Patient should start on October 04, 2024. atomoxetine (STRATTERA) 40 mg capsule Take 1 capsule by mouth once daily. Then stop losartan (COZAAR) 100 mg tablet Take 1 tablet by mouth once daily. tiZANidine (ZANAFLEX) 4 mg tablet Take 4 mg by mouth. potassium chloride (K-TAB) 10 mEq tablet Take 2 tablets by mouth once daily. albuterol HFA (PROAIR HFA) 90 mcg/actuation inhaler Inhale 2 Puffs as instructed every 4 hours as needed (FOR COUGH OR WHEEZE). aspirin, enteric coated (ASPIRIN, ENTERIC COATED) 81 mg EC tablet Take 1 tablet by mouth once daily. tamsulosin (FLOMAX) 0.4 mg amLODIPine (NORVASC) 5 mg tablet Take 1 tablet by mouth once daily. testosterone (ANDROGEL PUMP) 20.25 mg/1.25 gram (1.62 %) transdermal gel APPLY 4 PUMPS TOPICALLY DAILY. oxyCODONE-acetaminophen 5-325 mg (PERCOCET) as needed. CPAP Requires replacement machine at same settings. [...] Right 1988 LAPS SURG CHOLECYSTECTOMY W/CHOLANGIOGRAPHY 2004 [facility] - Dr. 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 EPIGASTRIC HERNIA,REDUC 07/19/2023 umbilical TONSILLECTOMY PRIMARY/SECONDARY <AGE 12 Tonsillectomy FAMILY HISTORY Problem Relation Age of Onset Hypertension Mother Heart Mother Stroke Mother Allergies Mother Breast Cancer Mother Heart Father of [place] Allergies Father Asthma Daughter Allergies Sister Allergies Brother Allergies Daughter Social History Tobacco Use Smoking status: Former Current packs/day: 0.00 Average packs/day: 2.0 packs/day for 5.0 years (10.0 ttl pk-yrs) Types: Cigarettes Start date: 02/08/1982 Quit date: 02/08/1987 Years since quittin.7 Smokeless tobacco: Former Types: Chew Quit date: 12/03/2017 Tobacco comments: patient smoked for a few months in 2006 Quit chew June 2022 Vaping Use Vaping status: Never Used Substance Use Topics Alcohol use: Not Currently Drug use: Not Currently Comment: marijuana in past not since 20 y/o Reviewed current medications, allergies, past medical history, surgical history, family history and social history today. REVIEW OF SYSTEMS All other reviewed and negative other than HPI. HEALTH MAINTENANCE: Reviewed health maintenance issues today and recommended the following in detail. BP Controlled (<130/80) Never done VITALS: BP 138/70 Pulse 78 Ht 195.6 cm (6' 5) Wt (!) 152 kg (335 lb) SpO2 98% BMI 39.73 kg/m Last 4 Encounter Wt Readings: Date: Wt: 09/23/2024 152 kg (335 lb) 09/11/2024 152 kg (335 lb) 07/08/2024 149.7 kg (330 lb) 06/24/2024 149.7 kg (330 lb) PHYSICAL EXAMINATION: General appearance: Well appearing, [...] or cyanosis. Good capillary refill. ASSESSMENT/PLAN: 1. Attention deficit disorder, unspecified type - ICD9: 314.00, ICD10: F98.8 (primary diagnosis) - wean and stop pristiq than slowly increase Strattera. Give update in one month. See me in eight weeks 2. Anxiety with depression - ICD9: 300.4, ICD10: F41.8 -as above. 3. Thrombocytopenia - ICD9: 287.5, ICD10: D69.6 - follow labs. Currently only minimally low. Jagjit Cheema MD documented in this encounter [facility] 10-16-2024 Telephone encounter Note Prescription Refill Information The patient has been identified by name and date of : Yes Caregiver verified no other encounters exist for this prescription request: Yes Caregiver confirmed with patient/requestor that no other refills are due, in the near future, with this provider at this time: Yes The last office visit in the department: 09/23/24 Does the patient have a future office visit with this provider/department: Yes, 10/21/24 Requested Prescriptions Pending Prescriptions Disp Refills esomeprazole (NEXIUM) 40 mg capsule 180 capsule 1 Sig: Take 1 capsule by mouth two times a day before meals. Reynaldo Zarate LPN October 16, 2024 2:11 PM [facility] 10-16-2024 Miscellaneous Notes Prescription Refill Information The patient has been identified by name and date of : Yes Caregiver verified no other encounters exist for this prescription request: Yes Caregiver confirmed with patient/requestor that no other refills are due, in the near future, with this provider at this time: Yes The last office visit in the department: 09/23/24 Does the patient have a future office visit with this provider/department: Yes, 10/21/24 Requested Prescriptions Pending Prescriptions Disp Refills esomeprazole (NEXIUM) 40 mg capsule 180 capsule 1 Sig: Take 1 capsule by mouth two times a day before meals. Reynaldo Zarate LPN October 16, 2024 2:11 PM documented in this encounter [facility] 09-27-2024 Telephone encounter Note Rx sent [facility] 09-27-2024 Miscellaneous Notes Rx sent Rec'd covermymeds PA for desvenlafaxine succinate ER 25mg. The info we have is not PA is not needed for the medicine. This is a qty issue. Did review with the pharmacy too. Please sent new for 25mg daily for a week. They a new rx for the 50mg daily. Unless you specifically want 25mg one twice daily(will complete PA) Did pend both rx. Please review if correct. documented in this encounter [facility] 09-27-2024 Telephone encounter Note Rec'd covermymeds PA for desvenlafaxine succinate ER 25mg. The info we have is not PA is not needed for the medicine. This is a qty issue. Did review with the pharmacy too. Please sent new for 25mg daily for a week. They a new rx for the 50mg daily. Unless you specifically want 25mg one twice daily(will complete PA) Did pend both rx. Please review if correct. [facility] 09-23-2024 Note HNO ID: [id number] Author: JAGJIT CHEEMA MD Service: ? Author Type: Physician Type: Progress Notes Filed: 09/23/2024 10:05 Note Text: Patient presents with: Follow Up HPI: Patient presents today for office visit for follow up. Asked him to come back because he wrote admitting to worsening depression symptoms. Cries frequently. Not sleeping well. Some issues with ruminating over things. Increased appetite. No suicidal ideation. Not a great support system. Has done counseling before. Bp is up again today. No chest pain or shortness of breath. MEDICATIONS: Current Outpatient Medications Medication Sig tiZANidine (ZANAFLEX) 4 mg tablet Take 4 mg by mouth. losartan (COZAAR) 50 mg tablet Take 1 tablet by mouth once daily. potassium chloride (K-TAB) 10 mEq tablet Take 2 tablets by mouth once daily. albuterol HFA (PROAIR HFA) 90 mcg/actuation inhaler Inhale 2 Puffs as instructed every 4 hours as needed (FOR COUGH OR WHEEZE). benzonatate (TESSALON PERLE) 100 mg capsule Take 2 capsules by mouth three times a day as needed. (Patient not taking: Reported on 09/11/2024) meclizine (ANTIVERT) 25 mg tab Take 1 tablet by mouth three times a day as needed (dizziness). (Patient not taking: Reported on 06/13/2024) aspirin, enteric coated (ASPIRIN, ENTERIC COATED) 81 mg EC tablet Take 1 tablet by mouth once daily. atomoxetine (STRATTERA) 100 mg capsule Take 1 capsule by mouth once daily. tamsulosin (FLOMAX) 0.4 mg esomeprazole (NEXIUM) 40 mg capsule Take 1 capsule by mouth two times a day before meals. atorvastatin (LIPITOR) 20 mg tablet Take 1 tablet by mouth daily at bedtime. For cholesterol. (Patient not taking: Reported on 09/11/2024) amLODIPine (NORVASC) 5 mg tablet Take 1 tablet by mouth once daily. testosterone (ANDROGEL PUMP) 20.25 mg/1.25 gram (1.62 %) transdermal gel APPLY 4 PUMPS TOPICALLY DAILY. oxyCODONE-acetaminophen 5-325 mg (PERCOCET) as needed. CPAP Requires replacement machine at same settings. [...] Right 1988 LAPS SURG CHOLECYSTECTOMY W/CHOLANGIOGRAPHY 2004 [facility] - Dr. 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 EPIGASTRIC HERNIA,REDUC 07/19/2023 umbilical TONSILLECTOMY PRIMARY/SECONDARY Tonsillectomy FAMILY HISTORY Problem Relation Age of Onset Hypertension Mother Heart Mother Stroke Mother Allergies Mother Breast Cancer Mother Heart Father of [place] Allergies Father Asthma Daughter Allergies Sister Allergies Brother Allergies Daughter Social History Tobacco Use Smoking status: Former Current packs/day: 0.00 Average packs/day: 2.0 packs/day for 5.0 years (10.0 ttl pk-yrs) Types: Cigarettes Start date: 02/08/1982 Quit date: 02/08/1987 Years since quittin.6 Smokeless tobacco: Former Types: Chew Quit date: 12/03/2017 Tobacco comments: patient smoked for a few months in 2006 Quit chew June 2022 Vaping Use Vaping status: Never Used Substance Use Topics Alcohol use: Not Currently Drug use: Not Currently Comment: marijuana in past not since 20 y/o Reviewed current medications, allergies, past medical history, surgical history, family history and social history today. REVIEW OF (more content not included)... [facility] 09-23-2024 History of Presen t illness Narrative Patient presents with: Follow Up HPI: Patient presents today for office visit for follow up. Asked him to come back because he wrote admitting to worsening depression symptoms. Cries frequently. Not sleeping well. Some issues with ruminating over things. Increased appetite. No suicidal ideation. Not a great support system. Has done counseling before. Bp is up again today. No chest pain or shortness of breath. MEDICATIONS: Current Outpatient Medications Medication Sig tiZANidine (ZANAFLEX) 4 mg tablet Take 4 mg by mouth. losartan (COZAAR) 50 mg tablet Take 1 tablet by mouth once daily. potassium chloride (K-TAB) 10 mEq tablet Take 2 tablets by mouth once daily. albuterol HFA (PROAIR HFA) 90 mcg/actuation inhaler Inhale 2 Puffs as instructed every 4 hours as needed (FOR COUGH OR WHEEZE). benzonatate (TESSALON PERLE) 100 mg capsule Take 2 capsules by mouth three times a day as needed. (Patient not taking: Reported on 09/11/2024) meclizine (ANTIVERT) 25 mg tab Take 1 tablet by mouth three times a day as needed (dizziness). (Patient not taking: Reported on 06/13/2024) aspirin, enteric coated (ASPIRIN, ENTERIC COATED) 81 mg EC tablet Take 1 tablet by mouth once daily. atomoxetine (STRATTERA) 100 mg capsule Take 1 capsule by mouth once daily. tamsulosin (FLOMAX) 0.4 mg esomeprazole (NEXIUM) 40 mg capsule Take 1 capsule by mouth two times a day before meals. atorvastatin (LIPITOR) 20 mg tablet Take 1 tablet by mouth daily at bedtime. For cholesterol. (Patient not taking: Reported on 09/11/2024) amLODIPine (NORVASC) 5 mg tablet Take 1 tablet by mouth once daily. testosterone (ANDROGEL PUMP) 20.25 mg/1.25 gram (1.62 %) transdermal gel APPLY 4 PUMPS TOPICALLY DAILY. oxyCODONE-acetaminophen 5-325 mg (PERCOCET) as needed. CPAP Requires replacement machine at same settings. [...] Right 1988 LAPS SURG CHOLECYSTECTOMY W/CHOLANGIOGRAPHY 2004 [facility] - Dr. 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 EPIGASTRIC HERNIA,REDUC 07/19/2023 umbilical TONSILLECTOMY PRIMARY/SECONDARY <AGE 12 Tonsillectomy FAMILY HISTORY Problem Relation Age of Onset Hypertension Mother Heart Mother Stroke Mother Allergies Mother Breast Cancer Mother Heart Father of [place] Allergies Father Asthma Daughter Allergies Sister Allergies Brother Allergies Daughter Social History Tobacco Use Smoking status: Former Current packs/day: 0.00 Average packs/day: 2.0 packs/day for 5.0 years (10.0 ttl pk-yrs) Types: Cigarettes Start date: 02/08/1982 Quit date: 02/08/1987 Years since quittin.6 Smokeless tobacco: Former Types: Chew Quit date: 12/03/2017 Tobacco comments: patient smoked for a few months in 2006 Quit chew June 2022 Vaping Use Vaping status: Never Used Substance Use Topics Alcohol use: Not Currently Drug use: Not Currently Comment: marijuana in past not since 20 y/o Reviewed current medications, allergies, past medical history, surgical history, family history and social history today. REVIEW OF SYSTEMS All other reviewed and negative other than HPI. VITALS: BP 170/78 Pulse 82 Wt (!) 152 kg (335 lb) SpO2 97% BMI 39.73 kg/m Last 4 Encounter Wt Readings: Date: Wt: 09/23/2024 152 kg (335 lb) 09/11/2024 152 kg (335 lb) 07/08/2024 149.7 kg (330 lb) 06/24/2024 149.7 kg (330 lb) PHYSICAL EXAMINATION: General appearance: Well appearing, [...] or cyanosis. Good capillary refill. ASSESSMENT/PLAN: 1. Attention deficit disorder, unspecified type - ICD9: 314.00, ICD10: F98.8 (primary diagnosis) - taper and stop atomoxetine. Start and increase pristiq. Discussed risks and benefits of new medication with the patient. Advised them to call if any side effects or questions. - follow up one month. - ATOMOXETINE 40 MG CAPSULE - DESVENLAFAXINE SUCCINATE ER 25 MG TABLET,EXTENDED RELEASE 24 HR 2. Anxiety with depression - ICD9: 300.4, ICD10: F41.8 - as above. - ATOMOXETINE 40 MG CAPSULE - DESVENLAFAXINE SUCCINATE ER 25 MG TABLET,EXTENDED RELEASE 24 HR 3. Essential hypertension, benign - ICD9: 401.1, ICD10: I10 - Uncontrolled - increase meds. - LOSARTAN 100 MG TABLET Jagjit Cheema MD RTO in one month or prn documented in this encounter [facility] 09-19-2024 Telephone encounter Note Pt called and is notified of providers message. Pt voices understanding and would like to have an appointment and discuss with Dr Cheema. Pt scheduled 09/23/[address] Cheema. Kira Hassan, ERASMO [facility] 09-19-2024 Miscellaneous Notes Pt called and is notified of providers message. Pt voices understanding and would like to have an appointment and discuss with Dr Cheema. Pt scheduled 09/23/[address] Cheema. Kira Hassan, RN Images from the original note were not included. Patient never responded or picked up my chart message in response to his question. See below. Please call and check on him with my response below: Looking at your note, you can have those symptoms due to worsening depression. There are meds like wellbutrin that work well for focus but better for depression. If you wanted we could taper and stop the straterrra and switch you to the wellbutrin. Are you willing? Do you feel like we need to have you talk with someone?\Dr Cheema Written by Jagjit Cheema MD on 09/18/2024 12:29 PM EDT documented in this encounter [facility] 09-19-2024 Telephone encounter Note Images from the original note were not included. Patient never responded or picked up my chart message in response to his question. See below. Please call and check on him with my response below: Looking at your note, you can have those symptoms due to worsening depression. There are meds like wellbutrin that work well for focus but better for depression. If you wanted we could taper and stop the straterrra and switch you to the wellbutrin. Are you willing? Do you feel like we need to have you talk with someone?\Dr Cheema Written by Jagjit Cheema MD on 09/18/2024 12:29 PM EDT [facility] 09-11-2024 Note HNO ID: [id number] Author: JAGJIT CHEEMA MD Service: ? Author Type: Physician Type: Progress Notes Filed: 09/11/2024 09:00 Note Text: Patient presents with: 6 Month Exam HPI: Patient presents today for office visit for follow up. HTN: Denies chest pain and shortness of breath. Some headaches. Refers to his head feeling like there is a band around it. Not the worst headache. Is mild. No new neuro issues. No palpitations or syncope. No edema. HLD: No longer talking atorvastatin. Does not feel any different. DEENA: Using CPAP nightly. Using when he naps also. Sleeping well through the night. Unknown if snoring. Does not feel rested when he wakes up. Lots of daytime fatigue. Benefiting from use and should continue therapy. DME: Currently using [facility]. Would like to change. Since having covid last year in December. Has been fatigued and having cough and occasionally lightheadedness. . No syncope. Has noted more depression. No suicidal ideation. Remains straterra. Feels that is working well. Does not want to change meds. Has done counseling. Occasionally lightheaded. Some gi issues. Has alternating bowel habits. No bloody or black stools. Just had colonoscopy in 2022. Worse when stressed. Red flags for re-assessment reviewed with patient in detail. Offered to see gi if continues. Has occasional cough. Declines work up. Discussed long covid clinic if worsens. Just had testosterone checked by Dr Ramos, urology. Still seeing [facility]. MEDICATIONS: Current Outpatient Medications Medication Sig tiZANidine (ZANAFLEX) 4 mg tablet Take 4 mg by mouth. losartan (COZAAR) 50 mg tablet Take 1 tablet by mouth once daily. potassium chloride (K-TAB) 10 mEq tablet Take 2 tablets by mouth once daily. albuterol HFA (PROAIR HFA) 90 mcg/actuation inhaler Inhale 2 Puffs as instructed every 4 hours as needed (FOR COUGH OR WHEEZE). aspirin, enteric coated (ASPIRIN, ENTERIC COATED) 81 mg EC tablet Take 1 tablet by mouth once daily. atomoxetine (STRATTERA) 100 mg capsule Take 1 capsule by mouth once daily. tamsulosin (FLOMAX) 0.4 mg esomeprazole (NEXIUM) 40 mg capsule Take 1 capsule by mouth two times a day before meals. amLODIPine (NORVASC) 5 mg tablet Take 1 tablet by mouth once daily. testosterone (ANDROGEL PUMP) 20.25 mg/1.25 gram (1.62 %) transdermal gel APPLY 4 PUMPS TOPICALLY DAILY. oxyCODONE-acetaminophen 5-325 mg (PERCOCET) as needed. CPAP Requires replacement machine at same settings. Cholecalciferol, Vitamin D3, (VITAMIN D) 1,000 unit cap Take 1 capsule by mouth once daily. cyanocobalamin (VITAMIN B-12) 1,000 mcg tab Take 1,000 mcg by mouth once daily. MULTIVITAMIN TAB Take one(1) tablet daily BY MOUTH. benzonatate (TESSALON PERLE) 100 mg capsule Take 2 capsules by mouth three times a day as needed. (Patient not taking: Reported on 09/11/2024) meclizine (ANTIVERT) 25 mg tab Take 1 tablet by mouth three times a day as needed (dizziness). (Patient not taking: Reported on 06/13/2024) atorvastatin (LIPITOR) 20 mg tablet Take 1 tablet by mouth daily at bedtime. For cholesterol. (Patient not taking: Reported on 09/11/2024) No current facility-administered medications for this visit. [...] Right 1988 LAPS SURG CHOLECYSTECTOMY W/CHOLANGIOGRAPHY 2004 [facility] - Dr. Bales OPEN REPAIR OF ROTATOR CUFF ACUTE Rotator cuff repair PERCUTANEOUS CORONARY INTERVENTION 2007 stent to LAD REPAIR EPIGASTRIC HERNIA,REDUC 07/19/2023 umbilical TONSILLECTOMY PRIMARY/SECONDARY Tonsillectomy FAMILY HISTORY (more content not included)... [facility] 09-11-2024 History of Presen t illness Narrative Patient presents with: 6 Month Exam HPI: Patient presents today for office visit for follow up. HTN: Denies chest pain and shortness of breath. Some headaches. Refers to his head feeling like there is a band around it. Not the worst headache. Is mild. No new neuro issues. No palpitations or syncope. No edema. HLD: No longer talking atorvastatin. Does not feel any different. DEENA: Using CPAP nightly. Using when he naps also. Sleeping well through the night. Unknown if snoring. Does not feel rested when he wakes up. Lots of daytime fatigue. Benefiting from use and should continue therapy. DME: Currently using [facility]. Would like to change. Since having covid last year in December. Has been fatigued and having cough and occasionally lightheadedness. . No syncope. Has noted more depression. No suicidal ideation. Remains straterra. Feels that is working well. Does not want to change meds. Has done counseling. Occasionally lightheaded. Some gi issues. Has alternating bowel habits. No bloody or black stools. Just had colonoscopy in 2022. Worse when stressed. Red flags for re-assessment reviewed with patient in detail. Offered to see gi if continues. Has occasional cough. Declines work up. Discussed long covid clinic if worsens. Just had testosterone checked by Dr Ramos, urology. Still seeing [facility]. MEDICATIONS: Current Outpatient Medications Medication Sig tiZANidine (ZANAFLEX) 4 mg tablet Take 4 mg by mouth. losartan (COZAAR) 50 mg tablet Take 1 tablet by mouth once daily. potassium chloride (K-TAB) 10 mEq tablet Take 2 tablets by mouth once daily. albuterol HFA (PROAIR HFA) 90 mcg/actuation inhaler Inhale 2 Puffs as instructed every 4 hours as needed (FOR COUGH OR WHEEZE). aspirin, enteric coated (ASPIRIN, ENTERIC COATED) 81 mg EC tablet Take 1 tablet by mouth once daily. atomoxetine (STRATTERA) 100 mg capsule Take 1 capsule by mouth once daily. tamsulosin (FLOMAX) 0.4 mg esomeprazole (NEXIUM) 40 mg capsule Take 1 capsule by mouth two times a day before meals. amLODIPine (NORVASC) 5 mg tablet Take 1 tablet by mouth once daily. testosterone (ANDROGEL PUMP) 20.25 mg/1.25 gram (1.62 %) transdermal gel APPLY 4 PUMPS TOPICALLY DAILY. oxyCODONE-acetaminophen 5-325 mg (PERCOCET) as needed. CPAP Requires replacement machine at same settings. Cholecalciferol, Vitamin D3, (VITAMIN D) 1,000 unit cap Take 1 capsule by mouth once daily. cyanocobalamin (VITAMIN B-12) 1,000 mcg tab Take 1,000 mcg by mouth once daily. MULTIVITAMIN TAB Take one(1) tablet daily BY MOUTH. benzonatate (TESSALON PERLE) 100 mg capsule Take 2 capsules by mouth three times a day as needed. (Patient not taking: Reported on 09/11/2024) meclizine (ANTIVERT) 25 mg tab Take 1 tablet by mouth three times a day as needed (dizziness). (Patient not taking: Reported on 06/13/2024) atorvastatin (LIPITOR) 20 mg tablet Take 1 tablet by mouth daily at bedtime. For cholesterol. (Patient not taking: Reported on 09/11/2024) No current facility-administered medications for this visit. [...] Right 1988 LAPS SURG CHOLECYSTECTOMY W/CHOLANGIOGRAPHY 2004 [facility] - Dr. 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 EPIGASTRIC HERNIA,REDUC 07/19/2023 umbilical TONSILLECTOMY PRIMARY/SECONDARY <AGE 12 Tonsillectomy FAMILY HISTORY Problem Relation Age of Onset Hypertension Mother Heart Mother Stroke Mother Allergies Mother Breast Cancer Mother Heart Father of [place] Allergies Father Asthma Daughter Allergies Sister Allergies Brother Allergies Daughter Social History Tobacco Use Smoking status: Former Current packs/day: 0.00 Average packs/day: 2.0 packs/day for 5.0 years (10.0 ttl pk-yrs) Types: Cigarettes Start date: 02/08/1982 Quit date: 02/08/1987 Years since quittin.6 Smokeless tobacco: Former Types: Chew Quit date: 12/03/2017 Tobacco comments: patient smoked for a few months in 2006 Quit chew June 2022 Vaping Use Vaping status: Never Used Substance Use Topics Alcohol use: Not Currently Drug use: Not Currently Comment: marijuana in past not since 20 y/o Reviewed current medications, allergies, past medical history, surgical history, family history and social history today. REVIEW OF SYSTEMS All other reviewed and negative other than HPI. HEALTH MAINTENANCE: Reviewed health maintenance issues today and recommended the following in detail. BP Controlled (<130/80) Never done RSV Vaccine(1 - Risk 60-74 years 1-dose series) Never done Advance Directive Discussion due on 06/19/2024 LDL Cholesterol due on 09/05/2024 VITALS: BP 148/70 Pulse 77 Ht 195.6 cm (6' 5) Wt (!) 152 kg (335 lb) SpO2 99% BMI 39.73 kg/m Last 4 Encounter Wt Readings: Date: Wt: 07/08/2024 149.7 kg (330 lb) 06/24/2024 149.7 kg (330 lb) 06/17/2024 152 kg (335 lb) 06/13/2024 153.1 kg (337 lb 8.4 oz) PHYSICAL EXAMINATION: General appearance: Well appearing, [...] or cyanosis. Good capillary refill. ASSESSMENT/PLAN: 1. Coronary artery disease 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 angina pectoris - ICD9: 414.01, ICD10: I25.10 (primary diagnosis) - stable. Follow with [facility]. 2. Hyperlipidemia, unspecified hyperlipidemia type - ICD9: 272.4, ICD10: E78.5 - Controlled - Continue current medications - LIPID PANEL, FASTING 3. Atrial flutter, unspecified type (HCC) - ICD9: 427.32, ICD10: I48.92 - stable. 4. Sleep apnea, unspecified type - ICD9: 780.57, ICD10: G47.30 - consider seeing sleep apnea if continues. 5. Gastric intestinal metaplasia - ICD9: 537.89, ICD10: K31.A0 - up to date on egd. 6. History of pulmonary embolism - ICD9: V12.55, ICD10: Z86.711 - stable. 7. History of asthma - ICD9: V12.69, ICD10: Z87.09 - consider pfts etc if worsens. 8. Fatigue, unspecified type - ICD9: 780.79, ICD10: R53.83 - consider seeing sleep meds. - THYROID STIMULATING HORMONE - T4/FTI/T4U - COMPLETE BLOOD COUNT AND DIFFERENTIAL - COMPREHENSIVE METABOLIC PANEL - SEDIMENTATION RATE, MARY Cheema MD Bp check in one month and rto in six months. documented in this encounter [facility] 08-16-2024 Evaluation note Diagnosis Onset Date Resolution Atherosclerotic heart disease of [place] coronary artery without angina pectoris chronic August 16, 2024 10:25am Atrial flutter chronic July 212024 10:25am Essential hypertension chronic Fe bruary 2024 10:25am Pure hypercholesterolemia chronic August 16, 2024 10:25am [facility] Work Phone: [phone]) 450-792502-28-2025 Telephone encounter Note* Telephone Encounter - Giselle Geren OCCA - 08/16/2024 10:16 AM EST Prescription Refill Information The patient has been identified by name and date of : Yes Caregiver verified no other encounters exist for this prescription request: Yes Caregiver confirmed with patient/requestor that no other refills are due, in the near future, with this provider at this time: Yes The last office visit in the department: 07/08/2024 Does the patient have a future office visit with this provider/department: Yes, 09/11/2024 Requested Prescriptions Pending Prescriptions Disp Refills losartan (COZAAR) 50 mg tablet 90 tablet 3 Sig: Take 1 tablet by mouth once daily. LUISA Martin August 16, 2024 10:16 AM [facility]02-28-2025 Miscellaneous Notes* Telephone Encounter - Giselle Green [facility]CCA - 08/16/2024 10:16 AM EST Prescription Refill Information The patient has been identified by name and date of : Yes Caregiver verified no other encounters exist for this prescription request: Yes Caregiver confirmed with patient/requestor that no other refills are due, in the near future, with this provider at this time: Yes The last office visit in the department: 07/08/2024 Does the patient have a future office visit with this provider/department: Yes, 09/11/2024 Requested Prescriptions Pending Prescriptions Disp Refills losartan (COZAAR) 50 mg tablet 90 tablet 3 Sig: Take 1 tablet by mouth once daily. LUISA Martin August 16, 2024 10:16 AM [facility] Miscellaneous Notes* Telephone Encounter - Sandy Velez LPN - 07/12/2024 11:35 AM EST Ratna with [facility] called for the last couple office visits to be faxed to them. Identified pt with name and date of . . Ratna looking for mention of c-pap. I did not see anything,. Ratna will look over. Done. Sandy Velez LPN [facility] Tele[facility] encounter Note * Telephone Encounter - Sandy Velez LPN - 07/12/2024 11:35 AM EST [facility]na [facility] called for the last couple office visits to be faxed to them. Identified pt with name and date of . . Ratna looking for mention of c-pap. I did not see anything,. Ratna will look over. Done. Sandy Velez LPN [facility]01-20-2025 History of Present illness Narrative* Faustino Pineda RT(R) - 07/08/2024 10:00 AM EST Radiology Service Progress Note PATIENT NAME: Lazaro Garzon DATE OF SERVICE: July 08, 2024 TIME: 10:04 AM PATIENT IDENTITY VERIFICATION COMPLETED USING TWO (2) IDENTIFIERS: Name and Date of confirmedby patient verbally. FALL SCREENING: Has the patient had 2 falls in the last year or 1 fall with injury or currently using an Ambulatory Assistive Device (Walker, Cane, Wheelchair, Crutches, etc.)? No PATIENT GENDER DATA: Assigned male at PATIENT RELEVANT IMPLANT DATA REVIEWED: Yes PATIENT PRESENTS WITH AN IMPLANTABLE OR ATTACHED TRUST MANAGER ASSISTANT: No RADIOLOGY DEPARTMENT: General X-ray: Exam(s) Completed: Chest X-Ray PERIPHERAL IV DATA: Not applicable SIGNED BY: RT Mariann(Filippo) July 08, 2024 10:04 AM documented in this encounterHol[facility]01-20-2025 NoteHNO ID: [id number] Author: FAUSTINO PINEDA RT(R) Service: ? Author Type: Medieval English Literature Professor Type: Progress Notes Filed: 07/08/2024 10:11 Note Text: Radiology Service Progress Note PATIENT NAME: Lazaro Garozn DATE OF SERVICE: July 08, 2024 TIME: 10:04 AM PATIENT IDENTITY VERIFICATION COMPLETED USING TWO (2) IDENTIFIERS: Name and Date of confirmed by patient verbally. FALL SCREENING: Has the patient had 2 falls in the last year or 1 fall with injury or currently using an Ambulatory Assistive Device (Walker, Cane, Wheelchair, Crutches, etc.)? No PATIENT GENDER DATA: Assigned male at PATIENT RELEVANT IMPLANT DATA REVIEWED: Yes PATIENT PRESENTS WITH AN IMPLANTABLE OR ATTACHED TRUST MANAGER ASSISTANT: No RADIOLOGY DEPARTMENT: General X-ray: Exam(s) Completed: Chest X-Ray PERIPHERAL IV DATA: Not applicable SIGNED BY: RT Mariann(R) July 08, 2024 10:04 [facility]01-20-2025 NoteHNO ID: [id number] Author: JAGJIT CHEEMA MD Service: ? Author Type: Physician Type: Progress Notes Filed: 07/08/2024 09:37 Note Text: Patient presents with: Pneumonia HPI: Patient presents today for office visit for follow up on Pneumonia. Still coughing. No chest pain. Some shortness of breath. Some wheezing. Completed abx. Overall is doing better. No fever or chills. Appetite is ok. Weight is down. Breathing is not perfect but is overall doing better. Not coughing up blood. Still some occasional sputum. No nausea or vomiting or diarrhea. Has repeat xray and blood work ordered. See previous note: Not coughing as much. This morning is the first morning did not cough any blood up. Can lie flat again. Finished ATB. Had added amoxil to the doxycycline. Has a lot of congestion. No fever. Still somewhat winded. Has a hx of previous PE. Has finished prednisone. Previous chest xray IMPRESSION: Small hazy opacities overlying the left lower lung. Consider short-term follow-up. MEDICATIONS: Latest Ref Rng 06/24/2024 WBC 3.70 - 11.00 k/uL 7.38 RBC 4.20 - 6.00 m/uL 5.71 Hemoglobin 13.0 - 17.0 g/dL 16.4 Hematocrit 39.0 - 51.0 % 49.5 MCV 80.0 - 100.0 fL 86.7 MCH 26.0 - 34.0 pg 28.7 MCHC 30.5 - 36.0 g/dL 33.1 RDW-CV 11.5 - 15.0 % 13.3 Platelet Count 150 - 400 k/uL 242 MPV 9.0 - 12.7 fL 11.4 Neut% % 73.8 Abs Neut (ANC) 1.45 - 7.50 k/uL 5.44 Lymph% % 16.3 Abs Lymph 1.00 - 4.00 k/uL 1.20 [place]% % 8.1 Abs [place] <0.87 k/uL 0.60 Eosin% % 0.9 Abs Eosin <0.46 k/uL 0.07 Baso% % 0.5 Abs Baso <0.11 k/uL 0.04 Immature Gran % % 0.4 IMMATURE GRANS (ABS) <0.10 k/uL 0.03 NRBC /100 WBC 0.0 Absolute nRBC <0.01 k/uL <0.01 DTYPE Auto Glucose 74 - 99 mg/dL 167 (H) BUN 9 - 24 mg/dL 17 Creatinine 0.73 - 1.22 mg/dL 1.11 Sodium 136 - 144 mmol/L 138 Potassium 3.7 - 5.1 mmol/L 3.6 (L) Chloride 98 - 107 mmol/L 100 CO2 22 - 30 mmol/L 25 Anion Gap 8 - 15 mmol/L 13 Calcium 8.5 - 10.2 mg/dL 9.6 eGFR >=60 mL/min/1.73m? 73 d Dimer <500 ng/mL FEU 290 D Dimer Age-related Cutoff ng/mL FEU 660 Legend: (H) High (L) Low ALLERGIES: ALLERGIES Allergen Reactions Sulfa (Sulfonamide * [...] Right 1988 LAPS SURG CHOLECYSTECTOMY W/CHOLANGIOGRAPHY 2004 [facility] - Dr. 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 EPIGASTRIC HERNIA,REDUC 07/19/2023 umbilical TONSILLECTOMY PRIMARY/SECONDARY Tonsillectomy FAMILY HISTORY Problem Relation Age of Onset Hypertension Mother Heart Mother Stroke Mother Allergies Mother Breast Cancer Mother Heart Father of [place] Allergies Father Asthma Daughter Allergies Sister Allergies Brother Allergies Daughter Social History Tobacco Use Smoking status: Former Current packs/day: 0.00 Average packs/day: 2.0 packs/day for 5.0 years (10.0 ttl pk-yrs) Types: Cigarettes Start date: 02/08/1982 Quit date: 02/08/1987 Years since quittin.4 Smokeless tobacco: Former Types: Chew Quit date: 12/03/2017 Tobacco comments: patient smoked for a few months in 2006 Quit chew June 2022 Vaping Use Vaping status: Never Used Substance Use Topics Alcohol use: Not Currently Drug use: Not Currently Comment: marijuana in past not since 20 y/o Reviewed current medications, allergies, past medical history, surgical history, family history and social history today. REVIEW OF SYSTEMS All other reviewed and negative other than HPI. HEALTH MAINTENANCE: Reviewed health maintenance issues today and recommended the followin (more content not included)...[place] [address]-20-2025 History of Present illness Narrative* Jagjit Cheema MD - 07/08/2024 9:06 AM EST Patient presents with: Pneumonia HPI: Patient presents today for office visit for follow up on Pneumonia. Still coughing. No chest pain. Some shortness of breath. Some wheezing. Completed abx. Overall is doing better. No fever or chills. Appetite is ok. Weight is down. Breathing is not perfect but is overall doing better. Not coughing up blood. Still some occasional sputum. No nausea or vomiting or diarrhea. Has repeat xray and blood work ordered. See previous note: Not coughing as much. This morning is the first morning did not cough any blood up. Can lie flat again. Finished ATB. Had added amoxil to the doxycycline. Has a lot of congestion. No fever. Still somewhat winded. Has a hx of previous PE. Has finished prednisone. Previous chest xray IMPRESSION: Small hazy opacities overlying the left lower lung. Consider short-term follow-up. MEDICATIONS: Latest Ref Rng 06/24/2024 WBC 3.70 - 11.00 k/uL 7.38 RBC 4.20 - 6.00 m/uL 5.71 Hemoglobin 13.0 - 17.0 g/dL 16.4 Hematocrit 39.0 - 51.0 % 49.5 MCV 80.0 - 100.0 fL 86.7 MCH 26.0 - 34.0 pg 28.7 MCHC 30.5 - 36.0 g/dL 33.1 RDW-CV 11.5 - 15.0 % 13.3 Platelet Count 150 - 400 k/uL 242 MPV 9.0 - 12.7 fL 11.4 Neut% % 73.8 Abs Neut (ANC) 1.45 - 7.50 k/uL 5.44 Lymph% % 16.3 Abs Lymph 1.00 - 4.00 k/uL 1.20 [place]% % 8.1 Abs [place] <0.87 k/uL 0.60 Eosin% % 0.9 Abs Eosin <0.46 k/uL 0.07 Baso% % 0.5 Abs Baso <0.11 k/uL 0.04 Immature Gran % % 0.4 IMMATURE GRANS (ABS) <0.10 k/uL 0.03 NRBC /100 WBC 0.0 Absolute nRBC <0.01 k/uL <0.01 DTYPE Auto Glucose 74 - 99 mg/dL 167 (H) BUN 9 - 24 mg/dL 17 Creatinine 0.73 - 1.22 mg/dL 1.11 Sodium 136 - 144 mmol/L 138 Potassium 3.7 - 5.1 mmol/L 3.6 (L) Chloride 98 - 107 mmol/L 100 CO2 22 - 30 mmol/L 25 Anion Gap 8 - 15 mmol/L 13 Calcium 8.5 - 10.2 mg/dL 9.6 eGFR >=60 mL/min/1.73m 73 d Dimer <500 ng/mL FEU 290 D Dimer Age-related Cutoff ng/mL FEU 660 Legend: (H) High (L) Low ALLERGIES: ALLERGIES Allergen Reactions Sulfa (Sulfonamide * [...] Right 1988 LAPS SURG CHOLECYSTECTOMY W/CHOLANGIOGRAPHY 2004 [facility] - Dr. 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 EPIGASTRIC HERNIA,REDUC 07/19/2023 umbilical TONSILLECTOMY PRIMARY/SECONDARY <AGE 12 Tonsillectomy FAMILY HISTORY Problem Relation Age of Onset Hypertension Mother Heart Mother Stroke Mother Allergies Mother Breast Cancer Mother Heart Father of [place] Allergies Father Asthma Daughter Allergies Sister Allergies Brother Allergies Daughter Social History Tobacco Use Smoking status: Former Current packs/day: 0.00 Average packs/day: 2.0 packs/day for 5.0 years (10.0 ttl pk-yrs) Types: Cigarettes Start date: 02/08/1982 Quit date: 02/08/1987 Years since quittin.4 Smokeless tobacco: Former Types: Chew Quit date: 12/03/2017 Tobacco comments: patient smoked for a few months in 2006 Quit chew June 2022 Vaping Use Vaping status: Never Used Substance Use Topics Alcohol use: Not Currently Drug use: Not Currently Comment: marijuana in past not since 20 y/o Reviewed current medications, allergies, past medical history, surgical history, family history andsocial history today. REVIEW OF SYSTEMS All other reviewed and negative other than HPI. HEALTH MAINTENANCE: Reviewed health maintenance issues today and recommended the following in detail. BP Controlled (<130/80) Never done Advance Directive Discussion due on 06/19/2024 VITALS: BP 136/80 Pulse 87 Ht 195.6 cm (6' 5) Wt (!) 149.7 kg (330 lb) BMI 39.13 kg/m Last 4 Encounter Wt Readings: Date: Wt: 06/24/2024 149.7 kg (330 lb) 06/17/2024 152 kg (335 lb) 06/13/2024 153.1 kg (337 lb 8.4 oz) 04/25/2024 151 kg (332 lb 14.3 oz) PHYSICAL EXAMINATION: General appearance: Well appearing, [...] gums normal, oropharynx normal Neck: Supple, no adenopathy Lungs: Lungs clear to auscultation. No wheezing, rhonchi, rales Heart: RRR without murmur, gallop, or rubs. No ectopy Abdomen: Normal abdominal exam, Abdomen soft, non-tender. Bowel sounds normal. No masses, organomegaly Extremities: No deformities, edema, skin discoloration, clubbing or cyanosis. Good capillary refill. ASSESSMENT/PLAN: 1. Bacterial pneumonia - ICD9: 482.9, ICD10: J15.9 (primary diagnosis) - recheck xray. Fluids and rest. Get repeat labs. Call if symptoms worsen at all or if not better in one to two weeks 2. Atrial flutter, unspecified type (HCC) - ICD9: 427.32, ICD10: I48.92 - stable. 3. Hyperglycemia - ICD9: 790.29, ICD10: R73.9 -as above 4. Hypokalemia - ICD9: 276.8, ICD10: E87.6 - as above. Jagjit Cheema MD documented in this encounterHolzer Hospital01-13-2025 Telephone encounter Note * Telephone Encounter - Fouzia Cope LPN - 07/01/2024 12:28 PM EST Prescription Refill Information The patient has been identified by name and date of : Yes Caregiver verified no other encounters exist for this prescription request: Yes Caregiver confirmed with patient/requestor that no other refills are due, in the near future, with this provider at this time: Yes The last office visit in the department: 06/24/24 Does the patient have a future office visit with this provider/department: Yes 07/08/24 Requested Prescriptions Pending Prescriptions Disp Refills potassium chloride (K-TAB) 10 mEq tablet 180 tablet 1 Sig: Take 2 tablets by mouth once daily. Fouzia Cope LPN July 01, 2024 12:28 PM [facility]01-13-[facility] Miscellaneous Notes* Telephone Encounter - Fouzia Cope LPN - 07/01/2024 12:28 PM EST Prescription Refill Information The patient has been identified by name and date of : Yes Caregiver verified no other encounters exist for this prescription request: Yes Caregiver confirmed with patient/requestor that no other refills are due, in the near future, with this provider at this time: Yes The last office visit in the department: 06/24/24 Does the patient have a future office visit with this provider/department: Yes 07/08/24 Requested Prescriptions Pending Prescriptions Disp Refills potassium chloride (K-TAB) 10 mEq tablet 180 tablet 1 Sig: Take 2 tablets by mouth once daily. Fouzia Cope LPN July 01, 2024 12:28 PM documented in this encounterHolzer Hospital01-07-2025 Telephone encounter Note * Telephone Encounter - Sincere Pickard RN - 06/25/2024 2:47 PM EST Phoned pt and given provider's message below with verbalized understanding. Pt agreeable. [facility]01-[facility] Miscellaneous Notes* Telephone Encounter - Sincere Pickard RN - 06/25/2024 2:47 PM EST Phoned pt and given provider's message below with verbalized understanding. Pt agreeable. * Telephone Encounter - Jagjit Cheema MD - 06/25/2024 12:37 PM EST If not taking a water pill should not necessarily require constant potassium. Can come from things like diarrhea or vomiting as well. Lets recheck and see what the numbers show * Telephone Encounter - Jerilyn Henry MA - 06/25/2024 9:52 AM EST Patient informed. He has been taking his potassium faithfully. Has not missed doses. Knows that his numbers have beentrending low. He is wondering if he should increase the potassium? Advised him to repeat labs in two weeks. He verbalized understanding. Jerilyn Henry MA * Telephone Encounter - Jagjit Cheema MD - 06/25/2024 8:59 AM EST His labs are overall ok other than potassium is slightly low. Make sure taking his potassium. His sugar is up although that could be residual from his prednisone. Let me know about the potassium . Either way I would recheck labs in two weeks. documented in this encounterHolzer Hospital01-07-2025 Telephone encounter Note * Telephone Encounter - Jagjit Cheema MD - 06/25/2024 12:37 PM EST If not taking a water pill should not necessarily require constant potassium. Can come from things like diarrhea or vomiting as well. Lets recheck and see what the numbers show [facility] Tele[facility] encounter Note* Telephone Encounter - Jerilyn Henry MA - 06/25/2024 9:52 AM EST Patient informed. He has been taking his potassium faithfully. Has not missed doses. Knows that his numbers have beentrending low. He is wondering if he should increase the potassium? Advised him to repeat labs in two weeks. He verbalized understanding. Jerilyn Henry MA [facility]01-07-[facility] Telephone encounter Note* Telephone Encounter - Jagjit Cheema MD - 06/25/2024 8:59 AM EST His labs are overall ok other than potassium is slightly low. Make sure taking his potassium. His sugar is up although that could be residual from his prednisone. Let me know about the potassium . Either way I would recheck labs in two weeks. [facility] NoteHNO ID: [id number] Author: JAGJIT CHEEMA MD Service: ? Author Type: Physician Type: Progress Notes Filed: 06/24/2024 09:26 Note Text: Patient presents with: Cough HPI: Patient presents today for office visit for follow up. Not coughing as much. This morning is the first morning did not cough any blood up. Can lie flat again. Finished ATB. Had added amoxil to the doxycycline. Has a lot of congestion. No fever. Still somewhat winded. Has a hx of previous PE. Has finished prednisone. See previous xray IMPRESSION: Small hazy opacities overlying the left lower lung. Consider short-term follow-up. MEDICATIONS: Current Outpatient Medications Medication Sig albuterol HFA (PROAIR HFA) 90 mcg/actuation inhaler Inhale 2 Puffs as instructed every 4 hours as needed (FOR COUGH OR WHEEZE). amoxicillin (AMOXIL) 875 mg tablet Take 1 tablet by mouth two times a day for 7 days. benzonatate (TESSALON PERLE) 100 mg capsule Take 2 capsules by mouth three times a day as needed. meclizine (ANTIVERT) 25 mg tab Take 1 tablet by mouth three times a day as needed (dizziness). (Patient not taking: Reported on 06/13/2024) aspirin, enteric coated (ASPIRIN, ENTERIC COATED) 81 mg EC tablet Take 1 tablet by mouth once daily. potassium chloride (K-TAB) 10 mEq tablet Take 2 tablets by mouth once daily. atomoxetine (STRATTERA) 100 mg capsule Take 1 capsule by mouth once daily. tamsulosin (FLOMAX) 0.4 mg esomeprazole (NEXIUM) 40 mg capsule Take 1 capsule by mouth two times a day before meals. losartan (COZAAR) 50 mg tablet Take 1 tablet by mouth once daily. atorvastatin (LIPITOR) 20 mg tablet Take 1 tablet by mouth daily at bedtime. For cholesterol. amLODIPine (NORVASC) 5 mg tablet Take 1 tablet by mouth once daily. testosterone (ANDROGEL PUMP) 20.25 mg/1.25 gram (1.62 %) transdermal gel APPLY 4 PUMPS TOPICALLY DAILY. oxyCODONE-acetaminophen 5-325 mg (PERCOCET) as needed. CPAP Requires replacement machine at same settings. [...] Right 1988 LAPS SURG CHOLECYSTECTOMY W/CHOLANGIOGRAPHY 2004 [facility] - Dr. Bales OPEN REPAIR OF ROTATOR CUFF ACUTE Rotator cuff repair PERCUTANEOUS CORONARY INTERVENTION 2007 stent to LAD REPAIR EPIGASTRIC HERNIA,REDUC 07/19/2023 umbilical TONSILLECTOMY PRIMARY/SECONDARY Tonsillectomy FAMILY HISTORY Problem Relation Age of Onset Hypertension Mother Heart Mother Stroke Mother Allergies Mother Breast Cancer Mother Heart Father of [place] Allergies Father Asthma Daughter Allergies Sister Allergies Brother Allergies Daughter Social History Tobacco Use Smoking status: Former Current packs/day: 0.00 Average packs/day: 2.0 packs/day for 5.0 years (10.0 ttl pk-yrs) Types: Cigarettes Start date: 02/08/1982 Quit date: 02/08/1987 Years since quittin.4 Smokeless tobacco: Former Types: Chew Quit date: 12/03/2017 Tobacco comments: patient smoked for a few months in 2006 Quit chew June 2022 Vaping Use Vaping status: Never Used Substance Use Topics Alcohol use: Not Currently Drug use: Not Currently Comment: marijuana in past not since 20 y/o Reviewed current medications, allergies, past medical history, surgical history, family history and social history today. REVI (more content not included)...[facility]01-06-2025 History of Present illness Narrative* Jagjit Cheema MD - 06/24/2024 9:05 AM EST Patient presents with: Cough HPI: Patient presents today for office visit for follow up. Not coughing as much. This morning is the first morning did not cough any blood up. Can lie flat again. Finished ATB. Had added amoxil to the doxycycline. Has a lot of congestion. No fever. Still somewhat winded. Has a hx of previous PE. Has finished prednisone. See previous xray IMPRESSION: Small hazy opacities overlying the left lower lung. Consider short-term follow-up. MEDICATIONS: Current Outpatient Medications Medication Sig albuterol HFA (PROAIR HFA) 90 mcg/actuation inhaler Inhale 2 Puffs as instructed every 4 hours as needed (FOR COUGH OR WHEEZE). amoxicillin (AMOXIL) 875 mg tablet Take 1 tablet by mouth two times a day for 7 days. benzonatate (TESSALON PERLE) 100 mg capsule Take 2 capsules by mouth three times a day as needed. meclizine (ANTIVERT) 25 mg tab Take 1 tablet by mouth three times a day as needed (dizziness). (Patient not taking: Reported on 06/13/2024) aspirin, enteric coated (ASPIRIN, ENTERIC COATED) 81 mg EC tablet Take 1 tablet by mouth once daily. potassium chloride (K-TAB) 10 mEq tablet Take 2 tablets by mouth once daily. atomoxetine (STRATTERA) 100 mg capsule Take 1 capsule by mouth once daily. tamsulosin (FLOMAX) 0.4 mg esomeprazole (NEXIUM) 40 mg capsule Take 1 capsule by mouth two times a day before meals. losartan (COZAAR) 50 mg tablet Take 1 tablet by mouth once daily. atorvastatin (LIPITOR) 20 mg tablet Take 1 tablet by mouth daily at bedtime. For cholesterol. amLODIPine (NORVASC) 5 mg tablet Take 1 tablet by mouth once daily. testosterone (ANDROGEL PUMP) 20.25 mg/1.25 gram (1.62 %) transdermal gel APPLY 4 PUMPS TOPICALLY DAILY. oxyCODONE-acetaminophen 5-325 mg (PERCOCET) as needed. CPAP Requires replacement machine at same settings. [...] Right 1988 LAPS SURG CHOLECYSTECTOMY W/CHOLANGIOGRAPHY 2004 [facility] - Dr. 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 EPIGASTRIC HERNIA,REDUC 07/19/2023 umbilical TONSILLECTOMY PRIMARY/SECONDARY <AGE 12 Tonsillectomy FAMILY HISTORY Problem Relation Age of Onset Hypertension Mother Heart Mother Stroke Mother Allergies Mother Breast Cancer Mother Heart Father of [place] Allergies Father Asthma Daughter Allergies Sister Allergies Brother Allergies Daughter Social History Tobacco Use Smoking status: Former Current packs/day: 0.00 Average packs/day: 2.0 packs/day for 5.0 years (10.0 ttl pk-yrs) Types: Cigarettes Start date: 02/08/1982 Quit date: 02/08/1987 Years since quittin.4 Smokeless tobacco: Former Types: Chew Quit date: 12/03/2017 Tobacco comments: patient smoked for a few months in 2006 Quit chew June 2022 Vaping Use Vaping status: Never Used Substance Use Topics Alcohol use: Not Currently Drug use: Not Currently Comment: marijuana in past not since 20 y/o Reviewed current medications, allergies, past medical history, surgical history, family history andsocial history today. REVIEW OF SYSTEMS All other reviewed and negative other than HPI. HEALTH MAINTENANCE: Reviewed health maintenance issues today and recommended the following in detail. BP Controlled (<130/80) Never done Advance Directive Discussion due on 06/19/2024 VITALS: BP 140/72 Pulse 88 Temp 36.2 C (97.2 F) (Tympanic) Wt (!) 149.7 kg (330 lb) SpO2 98% BMI 39.13 kg/m Last 4 Encounter Wt Readings: Date: Wt: 06/24/2024 149.7 kg (330 lb) 06/17/2024 152 kg (335 lb) 06/13/2024 153.1 kg (337 lb 8.4 oz) 04/25/2024 151 kg (332 lb 14.3 oz) PHYSICAL EXAMINATION: General appearance: Well appearing, [...] Peripheral pulses: Normal Neuro: Negative. ASSESSMENT/PLAN: 1. Bacterial pneumonia - ICD9: 482.9, ICD10: J15.9 (primary diagnosis) - continue one more round of meds. Xray in one month. - Red flags for re-assessment reviewed with patient in detail. Call if worsens at all. - XR CHEST 2V FRONTAL/LAT - COMPLETE BLOOD COUNT AND DIFFERENTIAL - BASIC METABOLIC PANEL - DOXYCYCLINE MONOHYDRATE 100 MG TABLET - AMOXICILLIN 875 MG TABLET 2. Hemoptysis - ICD9: 786.30, ICD10: R04.2 - - consider stat ct if positive - D-DIMER 3. History of pulmonary embolism - ICD9: V12.55, ICD10: Z86.711 - D-DIMER 4. SOB (shortness of breath) - ICD9: 786.05, ICD10: R06.02 - D-DIMER - PREDNISONE 20 MG TABLET Jagjit Cheema MD RTO in two weeks or prn documented in this encounterHolzer Hospital12-30-2024 Telephone encounter Note * Telephone Encounter - Brandie Lange LPN - 06/17/2024 4:01 PM EST Patient notified. [facility]-30-[facility] Miscellaneous Notes* Telephone Encounter - Brandie Lange LPN - 06/17/2024 4:01 PM EST Patient notified. * Telephone Encounter - Jagjit Cheema MD - 06/17/2024 3:43 PM EST ?? Shows small pneumonia on left. Doxycycline should cover. Follow up with one of us next week. Use albuterol and prednisone Can add amoxil to be on the safe side to his doxy. Take both. Call if worsen at all. documented in this encounterHolzer Hospital12-30-2024 Telephone encounter Note * Telephone Encounter - Jagjit Cheema MD - 06/17/2024 3:43 PM EST ?? Shows small pneumonia on left. Doxycycline should cover. Follow up with one of us next week. Use albuterol and prednisone Can add amoxil to be on the safe side to his doxy. Take both. Call if worsen at all. [facility]12-30-[facility] History of Present illness Narrative* Faustino Pineda RT(R) - 06/17/2024 3:00 PM EST Radiology Service Progress Note PATIENT NAME: Lazaro Garzon DATE OF SERVICE: June 17, 2024 TIME: 3:08 PM PATIENT IDENTITY VERIFICATION COMPLETED USING TWO (2) IDENTIFIERS: Name and Date of confirmedby patient verbally. FALL SCREENING: Has the patient had 2 falls in the last year or 1 fall with injury or currently using an Ambulatory Assistive Device (Walker, Cane, Wheelchair, Crutches, etc.)? No PATIENT GENDER DATA: Male PATIENT RELEVANT IMPLANT DATA REVIEWED: Yes PATIENT PRESENTS WITH AN IMPLANTABLE OR ATTACHED TRUST MANAGER ASSISTANT: No RADIOLOGY DEPARTMENT: General X-ray: Exam(s) Completed: Chest X-Ray PERIPHERAL IV DATA: Not applicable SIGNED BY: RT Mariann(R) June 17, 2024 3:08 PM documented in this encounterHolzer Hospital12-30-2024 NoteHNO ID: [id number] Author: FAUSTINO PINEDA RT(R) Service: ? Author Type: Medieval English Literature Professor Type: Progress Notes Filed: 06/17/2024 15:14 Note Text: Radiology Service Progress Note PATIENT NAME: Lazaro Garzon DATE OF SERVICE: June 17, 2024 TIME: 3:08 PM PATIENT IDENTITY VERIFICATION COMPLETED USING TWO (2) IDENTIFIERS: Name and Date of confirmed by patient verbally. FALL SCREENING: Has the patient had 2 falls in the last year or 1 fall with injury or currently using an Ambulatory Assistive Device (Walker, Cane, Wheelchair, Crutches, etc.)? No PATIENT GENDER DATA: Male PATIENT RELEVANT IMPLANT DATA REVIEWED: Yes PATIENT PRESENTS WITH AN IMPLANTABLE OR ATTACHED TRUST MANAGER ASSISTANT: No RADIOLOGY DEPARTMENT: General X-ray: Exam(s) Completed: Chest X-Ray PERIPHERAL IV DATA: Not applicable SIGNED BY: RT Mariann(R) June 17, 2024 3:08 [facility]12-30-2024 NoteHNO ID: [id number] Author: JAGJIT CHEEMA MD Service: ? Author Type: Physician Type: Progress Notes Filed: 06/17/2024 14:53 Note Text: Patient presents with: Cough HPI: Patient presents today for office visit for follow up. Not feeling any better actually feeling worse. Waking up with trouble breathing. No current shortness of breath at rest. Is winded if up and moving around. Has been ill a few weeks. No covid testing done. Feels wheezy Low grade fever. No nausea or vomiting or diarrhea. Has had some purulent sputum. Did note slight blood in it. Has issues with waking up winded. No chest pain or edema. Using tessalon and mucinex. Note was copied and pasted, without alteration from: previous ov. ASSESSMENT/PLAN: 1. Rhinosinusitis - ICD9: 473.9, ICD10: J32.9 - Will begin treatment with Doxycycline - Supportive care with plenty of fluids, rest, and analgesia prn. - Follow up in one week if symptoms persist or worsen. MEDICATIONS: Current Outpatient Medications Medication Sig doxycycline (VIBRA-TABS) 100 mg tablet Take 1 tablet by mouth two times a day for 7 days. benzonatate (TESSALON PERLE) 100 mg capsule Take 2 capsules by mouth three times a day as needed. meclizine (ANTIVERT) 25 mg tab Take 1 tablet by mouth three times a day as needed (dizziness). (Patient not taking: Reported on 06/13/2024) aspirin, enteric coated (ASPIRIN, ENTERIC COATED) 81 mg EC tablet Take 1 tablet by mouth once daily. potassium chloride (K-TAB) 10 mEq tablet Take 2 tablets by mouth once daily. atomoxetine (STRATTERA) 100 mg capsule Take 1 capsule by mouth once daily. tamsulosin (FLOMAX) 0.4 mg esomeprazole (NEXIUM) 40 mg capsule Take 1 capsule by mouth two times a day before meals. losartan (COZAAR) 50 mg tablet Take 1 tablet by mouth once daily. albuterol HFA (PROAIR HFA) 90 mcg/actuation inhaler Inhale 2 Puffs as instructed every 4 hours as needed (FOR COUGH OR WHEEZE). atorvastatin (LIPITOR) 20 mg tablet Take 1 tablet by mouth daily at bedtime. For cholesterol. amLODIPine (NORVASC) 5 mg tablet Take 1 tablet by mouth once daily. testosterone (ANDROGEL PUMP) 20.25 mg/1.25 gram (1.62 %) transdermal gel APPLY 4 PUMPS TOPICALLY DAILY. oxyCODONE-acetaminophen 5-325 mg (PERCOCET) as needed. CPAP Requires replacement machine at same settings. [...] Right 1988 LAPS SURG CHOLECYSTECTOMY W/CHOLANGIOGRAPHY 2004 [facility] - Dr. 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 EPIGASTRIC HERNIA,REDUC 07/19/2023 umbilical TONSILLECTOMY PRIMARY/SECONDARY Tonsillectomy FAMILY HISTORY Problem Relation Age of Onset Hypertension Mother Heart Mother Stroke Mother Allergies Mother Breast Cancer Mother Heart Father of [place] Allergies Father Asthma Daughter Allergies Sister Allergies Brother Allergies Daughter Social History Tobacco Use Smoking status: Former Current packs/day: 0.00 Average packs/day: 2.0 packs/day for 5.0 years (10.0 ttl pk-yrs) Types: Cigarettes Start date: 02/08/1982 Quit date: 02/08/1987 Years since quittin.3 Smokeless tobacco: Former Types: Chew Quit date: 12/03/2017 Tobacco comments: patient smoked for (more content not included)...[facility] 06-17-2024 History of Present illness Narrative* Jagjit Cheema MD - 06/17/2024 2:24 PM EST Patient presents with: Cough HPI: Patient presents today for office visit for follow up. Not feeling any better actually feeling worse. Waking up with trouble breathing. No current shortness of breath at rest. Is winded if up and moving around. Has been ill a few weeks. No covid testing done. Feels wheezy Low grade fever. No nausea or vomiting or diarrhea. Has had some purulent sputum. Did note slight blood in it. Has issues with waking up winded. No chest pain or edema. Using tessalon and mucinex. Note was copied and pasted, without alteration from: previous ov. ASSESSMENT/PLAN: 1. Rhinosinusitis - ICD9: 473.9, ICD10: J32.9 - Will begin treatment with Doxycycline - Supportive care with plenty of fluids, rest, and analgesia prn. - Follow up in one week if symptoms persist or worsen. MEDICATIONS: Current Outpatient Medications Medication Sig doxycycline (VIBRA-TABS) 100 mg tablet Take 1 tablet by mouth two times a day for 7 days. benzonatate (TESSALON PERLE) 100 mg capsule Take 2 capsules by mouth three times a day as needed. meclizine (ANTIVERT) 25 mg tab Take 1 tablet by mouth three times a day as needed (dizziness). (Patient not taking: Reported on 06/13/2024) aspirin, enteric coated (ASPIRIN, ENTERIC COATED) 81 mg EC tablet Take 1 tablet by mouth once daily. potassium chloride (K-TAB) 10 mEq tablet Take 2 tablets by mouth once daily. atomoxetine (STRATTERA) 100 mg capsule Take 1 capsule by mouth once daily. tamsulosin (FLOMAX) 0.4 mg esomeprazole (NEXIUM) 40 mg capsule Take 1 capsule by mouth two times a day before meals. losartan (COZAAR) 50 mg tablet Take 1 tablet by mouth once daily. albuterol HFA (PROAIR HFA) 90 mcg/actuation inhaler Inhale 2 Puffs as instructed every 4 hours as needed (FOR COUGH OR WHEEZE). atorvastatin (LIPITOR) 20 mg tablet Take 1 tablet by mouth daily at bedtime. For cholesterol. amLODIPine (NORVASC) 5 mg tablet Take 1 tablet by mouth once daily. testosterone (ANDROGEL PUMP) 20.25 mg/1.25 gram (1.62 %) transdermal gel APPLY 4 PUMPS TOPICALLY DAILY. oxyCODONE-acetaminophen 5-325 mg (PERCOCET) as needed. CPAP Requires replacement machine at same settings. [...] Right 1988 LAPS SURG CHOLECYSTECTOMY W/CHOLANGIOGRAPHY 2004 [facility] - Dr. 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 EPIGASTRIC HERNIA,REDUC 07/19/2023 umbilical TONSILLECTOMY PRIMARY/SECONDARY <AGE 12 Tonsillectomy FAMILY HISTORY Problem Relation Age of Onset Hypertension Mother Heart Mother Stroke Mother Allergies Mother Breast Cancer Mother Heart Father of AL Allergies Father Asthma Daughter Allergies Sister Allergies Brother Allergies Daughter Social History Tobacco Use Smoking status: Former Current packs/day: 0.00 Average packs/day: 2.0 packs/day for 5.0 years (10.0 ttl pk-yrs) Types: Cigarettes Start date: 02/08/1982 Quit date: 02/08/1987 Years since quittin.3 Smokeless tobacco: Former Types: Chew Quit date: 12/03/2017 Tobacco comments: patient smoked for a few months in 2006 Quit chew June 2022 Vaping Use Vaping status: Never Used Substance Use Topics Alcohol use: Not Currently Drug use: Not Currently Comment: marijuana in past not since 20 y/o Reviewed current medications, allergies, past medical history, surgical history, family history andsocial history today. REVIEW OF SYSTEMS All other reviewed and negative other than HPI. HEALTH MAINTENANCE: Reviewed health maintenance issues today and recommended the following in detail. BP Controlled (<130/80) Never done VITALS: BP 152/92 Pulse 79 Temp 37.8 C (100.1 F) Wt (!) 152 kg (335 lb) SpO2 99% BMI 39.73 kg/m Last 4 Encounter Wt Readings: Date: Wt: 06/17/2024 152 kg (335 lb) 06/13/2024 153.1 kg (337 lb 8.4 oz) 04/25/2024 151 kg (332 lb 14.3 oz) 04/10/2024 149.1 kg (328 lb 12.8 oz) PHYSICAL EXAMINATION: General appearance: Well appearing, [...] gums normal, oropharynx normal Neck: Supple, no adenopath Lungs: moving air well. No rales. Coarse breath sounds with forced expiration. Heart: RRR without murmur, gallop, or rubs. No ectopy Abdomen: Normal abdominal exam, Abdomen soft, non-tender. Bowel sounds normal. No masses, organomegaly Extremities: No deformities, edema, ASSESSMENT/PLAN: 1. Bronchitis - ICD9: 490, ICD10: J40 Albuterol prn. Xr chest Prednisone x 5 days. Doxycycline. Discussed risks and benefits of new medication with the patient. Advised them to call if any side effects or questions. Red flags for re-assessment reviewed with patient in detail. Call if symptoms worsen at all or if not better in one to two weeks Reviewed diagnosis and treatment options in detail. Questions were answered. Patient expressed understanding of treatment plan. Jagjit Cheema MD [facility] Tele[facility] encounter Note * Telephone Encounter - Brandie Lange LPN - 06/17/2024 11:51 AM EST Scheduled. [facility] Miscellaneous Notes* Telephone Encounter - Brandie Lange LPN - 06/17/2024 11:51 AM EST Scheduled. * Telephone Encounter - Jagjit Cheema MD - 06/17/2024 11:27 AM EST Needs to see one of us if that bad * Telephone Encounter - Brandie Lange LPN - 06/17/2024 11:04 AM EST He was seen in 06/13 and treated with Doxy. * Telephone Encounter - Radha Lawson - 06/17/2024 10:41 AM EST Patient calling in to request an order for an xray of his chest. He feels his cold going into his chest and has concerns of pneumonia. Please review and advise patient, okay to leave detailed message. Radha Lawson June 17, 2024 10:42 AM documented [facility] encounter[facility] Telephone encounter Note * Telephone Encounter - Jagjit Cheema MD - 06/17/2024 11:27 AM EST Needs to see one of us if that bad [facility]12-30-[facility] Telephone encounter Note* Telephone Encounter - Brandie Lange LPN - 06/17/2024 11:04 AM EST He was seen in 06/13 and treated with Doxy. [facility]12-30-2024 Telephone encounter Note* Telephone Encounter - Renny, Radha Rj - 06/17/2024 10:41 AM EST Patient calling in to request an order for an xray of his chest. He feels his cold going into his chest and has concerns of pneumonia. Please review and advise patient, okay to leave detailed message. Radha Lawson June 17, 2024 10:42 AM [facility]12-26-2024 NoteHNO ID: [id number] Author: CAROLANN LUCAS APRN.EDGE POLISHER Service: ? Author Type: Nurse Practitioner Type: Progress Notes Filed: 06/13/2024 16:18 Note Text: Subjective The history is provided by the patient. No supervisor modern languages was used. HPI Lazaro Garzon is a 68 year old male who presents today for CC of cough, chest congestion, runny nose for a week. He has used tylenol without relief. BP 136/74 Pulse 90 Temp 36.5 ?C (97.7 ?F) Resp 16 Wt (!) 153.1 kg (337 lb 8.4 oz) SpO2 97% BMI 40.02 kg/m? Social History Tobacco Use Smoking status: Former Current packs/day: 0.00 Average packs/day: 2.0 packs/day for 5.0 years (10.0 ttl pk-yrs) Types: Cigarettes Start date: 02/08/1982 Quit date: 02/08/1987 Years since quittin.3 Smokeless tobacco: Former Types: Chew Quit date: 12/03/2017 Tobacco comments: patient smoked for a few months in 2006 Quit chew June 2022 Vaping Use Vaping status: Never Used Substance Use Topics Alcohol use: Not Currently [...] have confirmed and edited as necessary, the [facility] Review of Systems Constitutional: Negative for chills and fever. HENT: Positive for congestion. Negative for ear pain, sinus pain and sore throat. Rhinorrhea Respiratory: Positive for cough. Negative for sputum production, shortness of breath and wheezing. Cardiovascular: Negative for chest pain. Musculoskeletal: Negative for myalgias. Neurological: Negative for headaches. Objective Physical Exam Vitals and nursing note reviewed. Constitutional: Appearance: He is not toxic-appearing. HENT: Head: Normocephalic and atraumatic. Right Ear: Tympanic membrane, ear canal and external ear normal. Left Ear: Tympanic membrane, ear canal and external ear normal. Nose: Mucosal edema, congestion and rhinorrhea present. Right Sinus: No maxillary sinus tenderness or frontal sinus tenderness. Left Sinus: No maxillary sinus tenderness or frontal sinus tenderness. Mouth/Throat: Pharynx: Uvula midline. Postnasal drip present. No oropharyngeal exudate or posterior oropharyngeal erythema. Tonsils: No tonsillar abscesses. Cardiovascular: Rate and Rhythm: Normal rate and [...] adenopathy. Left cervical: No superficial cervical adenopathy. Neurological: Mental Status: He is alert. ASSESSMENT/PLAN: 1. Rhinosinusitis - ICD9: 473.9, ICD10: J32.9 - Will begin treatment with Doxycycline - Supportive care with plenty of fluids, rest, and analgesia prn. - Follow up in one week if symptoms persist or worsen. Diagnosis and treatment plan were discussed and questions were answered to the patient's satisfaction. Pt acknowledged understanding of concepts and follow up plan. Specific signs and symptoms that would indicate the need for higher level of care were discussed in detail warranting prompt ER evaluation. [facility]ann Lucas APRN.[facility] History of Present illness Narrative* Carolann Lucas APRN.ROSITA - 06/13/2024 4:02 PM EST Subjective The history is provided by the patient. No supervisor modern languages was used. HPI Lazaro Garzon is a 68 year old male who presents today for CC of cough, chest congestion, runny nose for a week. He has used tylenol without relief. BP 136/74 Pulse 90 Temp 36.5 C (97.7 F) Resp 16 Wt (!) 153.1 kg (337 lb 8.4 oz) SpO2 97% BMI 40.02 kg/m Social History Tobacco Use Smoking status: Former Current packs/day: 0.00 Average packs/day: 2.0 packs/day for 5.0 years (10.0 ttl pk-yrs) Types: Cigarettes Start date: 02/08/1982 Quit date: 02/08/1987 Years since quittin.3 Smokeless tobacco: Former Types: Chew Quit date: 12/03/2017 Tobacco comments: patient smoked for a few months in 2006 Quit chew June 2022 Vaping Use Vaping status: Never Used Substance Use Topics Alcohol use: Not Currently [...] have confirmed and edited as necessary, the [facility] Review of Systems Constitutional: Negative for chills and fever. HENT: Positive for congestion. Negative for ear pain, sinus pain and sore throat. Rhinorrhea Respiratory: Positive for cough. Negative for sputum production, shortness of breath and wheezing. Cardiovascular: Negative for chest pain. Musculoskeletal: Negative for myalgias. Neurological: Negative for headaches. Objective Physical Exam Vitals and nursing note reviewed. Constitutional: Appearance: He is not toxic-appearing. HENT: Head: Normocephalic and atraumatic. Right Ear: Tympanic membrane, ear canal and external ear normal. Left Ear: Tympanic membrane, ear canal and external ear normal. Nose: Mucosal edema, congestion and rhinorrhea present. Right Sinus: No maxillary sinus tenderness or frontal sinus tenderness. Left Sinus: No maxillary sinus tenderness or frontal sinus tenderness. Mouth/Throat: Pharynx: Uvula midline. Postnasal drip present. No oropharyngeal exudate or posterior oropharyngealerythema. Tonsils: No tonsillar abscesses. Cardiovascular: Rate and Rhythm: Normal rate and [...] adenopathy. Left cervical: No superficial cervical adenopathy. Neurological: Mental Status: He is alert. ASSESSMENT/PLAN: 1. Rhinosinusitis - ICD9: 473.9, ICD10: J32.9 - Will begin treatment with Doxycycline - Supportive care with plenty of fluids, rest, and analgesia prn. - Follow up in one week if symptoms persist or worsen. Diagnosis and treatment plan were discussed and questions were answered to the patient's satisfaction. Pt acknowledged understanding of concepts and follow up plan. Specific signs and symptoms that would indicate the need for higher level of care were discussed indetail warranting prompt ER evaluation. Carolann Lucas APRN.EDGE POLISHER documented in [place] encounterRebecca [place] [address]-08-2024 Telephone encounter Note * Telephone Encounter - Sincere Pickard RN - 04/26/2024 12:39 PM EST Spoke with Amanda at [facility] Main lab, who states they will be able to add the hgba1c with the blood collected yesterday. [facility] Miscellaneous Notes* Telephone Encounter - Sincere Pickard RN - 04/26/2024 12:39 PM EST Spoke with Amanda at [facility] Main lab, who states they will be able to add the hgba1c with the blood collected yesterday. * Telephone Encounter - Lisa Javed APRN.CNP - 04/26/2024 10:21 AM EST Please see if lab can add on A1c. His blood sugar was elevated- if not he will need to come back in. Lisa Javed APRN.CNP documented in [facility] encounterHol[facility]11-[facility] Telephone encounter Note * Telephone Encounter - Lisa Javed APRN.CNP - 04/26/2024 10:21 AM EST Please see if lab can add on A1c. His blood sugar was elevated- if not he will need to come back in. Lisa Javed APRN.CNP [facility]11-07-[facility] History of Present illness Narrative* Terell Cueto RT(R) - 04/25/2024 2:20 PM EST Radiology Service Progress Note PATIENT NAME: Lazaro Garzon DATE OF SERVICE: April 25, 2024 TIME: 2:05 PM PATIENT IDENTITY VERIFICATION COMPLETED USING TWO (2) IDENTIFIERS: Name and Date of confirmedby patient verbally. FALL SCREENING: Has the patient had 2 falls in the last year or 1 fall with injury or currently using an Ambulatory Assistive Device (Walker, Cane, Wheelchair, Crutches, etc.)? No PATIENT GENDER DATA: Male PATIENT RELEVANT IMPLANT DATA REVIEWED: Not Applicable PATIENT PRESENTS WITH AN IMPLANTABLE OR ATTACHED TRUST MANAGER ASSISTANT: No RADIOLOGY DEPARTMENT: General X-ray: Exam(s) Completed: Chest X-Ray PERIPHERAL IV DATA: Not applicable SIGNED BY: RT Buster(R) April 25, 2024 2:05 PM documented in this encounterHol[facility]11-07-2024 NoteHNO ID: [id number] Author: TERELL CUETO RT(R) Service: Radiology Author Type: Technologist Type: Progress Notes Filed: 04/25/2024 14:18 Note Text: Radiology Service Progress Note PATIENT NAME: Lazaro Garzon DATE OF SERVICE: April 25, 2024 TIME: 2:05 PM PATIENT IDENTITY VERIFICATION COMPLETED USING TWO (2) IDENTIFIERS: Name and Date of confirmed by patient verbally. FALL SCREENING: Has the patient had 2 falls in the last year or 1 fall with injury or currently using an Ambulatory Assistive Device (Walker, Cane, Wheelchair, Crutches, etc.)? No PATIENT GENDER DATA: Male PATIENT RELEVANT IMPLANT DATA REVIEWED: Not Applicable PATIENT PRESENTS WITH AN IMPLANTABLE OR ATTACHED TRUST MANAGER ASSISTANT: No RADIOLOGY DEPARTMENT: General X-ray: Exam(s) Completed: Chest X-Ray PERIPHERAL IV DATA: Not applicable SIGNED BY: RT Buster(Filippo) April 25, 2024 2:05 [facility]11-07-2024 NoteHNO ID: [id number] Author: LISA JAVED APRN.EDGE POLISHER Service: ? Author Type: Nurse Practitioner Type: Progress Notes Filed: 04/25/2024 14:07 Note Text: 04/25/2024 Patient presents with: Dizziness: X 1 week SUBJECTIVE: This is a 68 year old that is here today for Above Complaints. For the last week has had dizziness. Described as wearing bifocals and trying to walk down the stairs. Pixley like he was spinning around this morning. Head movement worsens it. Has had vertigo in the past and ENT did maneuver fixed him. Doesn't necessarily feel dizzy now just generally weak. Still trying to get over a cold. Throat is sore. Hurts to take a deep breath at times. SOB at times. Cough is improving. Feels weak and fatigued. Some headaches. Can get hot/cold feelings. Not using OTC medications. Denies fever, chills, muscle aches, worse headache of his life, visual changes, slurred speech, facial drooping, hearing loss, tinnitus, dyspnea, wheezing, chest pain, palpitations, nausea, vomiting, diarrhea, extremity numbness, tingling or weakness PAST MEDICAL HISTORY Diagnosis Date Abdominal pain, [...] treatment per pulm Recurrent pneumonia 14 times ALLERGIES Sulfa (Sulfonamide Antibiotics) MEDICATIONS Current Outpatient Medications Medication Sig aspirin, enteric coated (ASPIRIN, ENTERIC COATED) 81 mg EC tablet Take 1 tablet by mouth once daily. potassium chloride (K-TAB) 10 mEq tablet Take 2 tablets by mouth once daily. atomoxetine (STRATTERA) 100 mg capsule Take 1 capsule by mouth once daily. tamsulosin (FLOMAX) 0.4 mg esomeprazole (NEXIUM) 40 mg capsule Take 1 capsule by mouth two times a day before meals. losartan (COZAAR) 50 mg tablet Take 1 tablet by mouth once daily. albuterol HFA (PROAIR HFA) 90 mcg/actuation inhaler Inhale 2 Puffs as instructed every 4 hours as needed (FOR COUGH OR WHEEZE). atorvastatin (LIPITOR) 20 mg tablet Take 1 tablet by mouth daily at bedtime. For cholesterol. amLODIPine (NORVASC) 5 mg tablet Take 1 tablet by mouth once daily. testosterone (ANDROGEL PUMP) 20.25 mg/1.25 gram (1.62 %) transdermal gel APPLY 4 PUMPS TOPICALLY DAILY. oxyCODONE-acetaminophen 5-325 mg (PERCOCET) as needed. CPAP Requires replacement machine at same settings. Cholecalciferol, Vitamin D3, (VITAMIN D) 1,000 unit cap Take 1 capsule by mouth once daily. cyanocobalamin (VITAMIN B-12) 1,000 mcg tab Take 1,000 mcg by mouth once daily. MULTIVITAMIN TAB Take one(1) tablet daily BY MOUTH. No current facility-administered medications for this visit. Medications and allergies reviewed by this provider. SOCIAL HISTORY Social History Tobacco Use Smoking status: Former Current packs/day: 0.00 Average packs/day: 2.0 packs/day for 5.0 years (10.0 ttl pk-yrs) Types: Cigarettes Start date: 02/08/1982 Quit date: 02/08/1987 Years since quittin.2 Smokeless tobacco: Former Types: Chew Quit date: 12/03/2017 Tobacco comments: patient smoked for a few months in 2006 Quit chew June 2022 Vaping Use Vaping status: Never Used Substance Use Topics Alcohol use: Not Currently Drug use: Not Currently Comment: marijuana in past not since 20 y/o REVIEW OF SYSTEMS All other reviewed and negative other than HPI. OBJECTIVE: BP 140/78 Pulse 78 Wt (!) 151 kg (332 lb 14.3 oz) SpO2 97% BMI 39.48 kg/m? . Vital signs reviewed by this provider. APPEARANCE Well appearing, alert, in no acute distress, well-hydrated, well nourished. EYES PERRLA, conjunctiva and sclera normal. EARS External ears normal, canals clear THROAT normal, no erythema NECK Supple, no adenopathy; thyroid symmetric, normal size, no bruits HEART RRR with normal S1 and S2, no murmurs, no gallops, no JVD appreciated LUNG clear to auscultation. No wheezes, rhonchi or rales EXTREMITIES Extremities normal, No deformities, No skin discoloration, and No edema NEURO Awake, alert and oriented x 3, Cranial nerves II-XII grossly intact, Reflexes symmetrical, Normal gait, No involuntary motions., and negative findings: speech normal, mental status intact, Romberg negative, muscle tone normal, muscle strength normal, rapid alternating movements normal, finger to nose normal, reflexes normal and symmetric, plantar response downgoing bilaterally. Normal gait SKIN Sk (more content not included)...[facility]11-07-2024 History of Present illness Narrative* Podlogar, COMFORT Gonzalez.ROSITA - 04/25/2024 1:21 PM EST 04/25/2024 Patient presents with: Dizziness: X 1 week SUBJECTIVE: This is a 68 year old that is here today for Above Complaints. For the last week has had dizziness. Described as wearing bifocals and trying to walk down the stairs. Pixley like he was spinning around this morning. Head movement worsens it. Has had vertigo in the past and ENT did maneuver fixed him. Doesn't necessarily feel dizzy now just generally weak. Still trying to get over a cold. Throat is sore. Hurts to take a deep breath at times. SOB at times. Cough is improving. Feels weak and fatigued. Some headaches. Can get hot/cold feelings. Not using OTC medications. Denies fever, chills, muscle aches, worse headache of his life, visual changes, slurred speech, facial drooping, hearing loss, tinnitus, dyspnea, wheezing, chest pain, palpitations, nausea, vomiting, diarrhea, extremity numbness, tingling or weakness PAST MEDICAL HISTORY Diagnosis Date Abdominal pain, [...] treatment per pulm Recurrent pneumonia 14 times ALLERGIES Sulfa (Sulfonamide Antibiotics) MEDICATIONS Current Outpatient Medications Medication Sig aspirin, enteric coated (ASPIRIN, ENTERIC COATED) 81 mg EC tablet Take 1 tablet by mouth once daily. potassium chloride (K-TAB) 10 mEq tablet Take 2 tablets by mouth once daily. atomoxetine (STRATTERA) 100 mg capsule Take 1 capsule by mouth once daily. tamsulosin (FLOMAX) 0.4 mg esomeprazole (NEXIUM) 40 mg capsule Take 1 capsule by mouth two times a day before meals. losartan (COZAAR) 50 mg tablet Take 1 tablet by mouth once daily. albuterol HFA (PROAIR HFA) 90 mcg/actuation inhaler Inhale 2 Puffs as instructed every 4 hours as needed (FOR COUGH OR WHEEZE). atorvastatin (LIPITOR) 20 mg tablet Take 1 tablet by mouth daily at bedtime. For cholesterol. amLODIPine (NORVASC) 5 mg tablet Take 1 tablet by mouth once daily. testosterone (ANDROGEL PUMP) 20.25 mg/1.25 gram (1.62 %) transdermal gel APPLY 4 PUMPS TOPICALLY DAILY. oxyCODONE-acetaminophen 5-325 mg (PERCOCET) as needed. CPAP Requires replacement machine at same settings. Cholecalciferol, Vitamin D3, (VITAMIN D) 1,000 unit cap Take 1 capsule by mouth once daily. cyanocobalamin (VITAMIN B-12) 1,000 mcg tab Take 1,000 mcg by mouth once daily. MULTIVITAMIN TAB Take one(1) tablet daily BY MOUTH. No current facility-administered medications for this visit. Medications and allergies reviewed by this provider. SOCIAL HISTORY Social History Tobacco Use Smoking status: Former Current packs/day: 0.00 Average packs/day: 2.0 packs/day for 5.0 years (10.0 ttl pk-yrs) Types: Cigarettes Start date: 02/08/1982 Quit date: 02/08/1987 Years since quittin.2 Smokeless tobacco: Former Types: Chew Quit date: 12/03/2017 Tobacco comments: patient smoked for a few months in 2006 Quit chew June 2022 Vaping Use Vaping status: Never Used Substance Use Topics Alcohol use: Not Currently Drug use: Not Currently Comment: marijuana in past not since 20 y/o REVIEW OF SYSTEMS All other reviewed and negative other than HPI. OBJECTIVE: BP 140/78 Pulse 78 Wt (!) 151 kg (332 lb 14.3 oz) SpO2 97% BMI 39.48 kg/m . Vital signs reviewed by this provider. APPEARANCE Well appearing, alert, in no acute distress, well-hydrated, well nourished. EYES PERRLA, conjunctiva and sclera normal. EARS External ears normal, canals clear THROAT normal, no erythema NECK Supple, no adenopathy; thyroid symmetric, normal size, no bruits HEART RRR with normal S1 and S2, no murmurs, no gallops, no JVD appreciated LUNG clear to auscultation. No wheezes, rhonchi or rales EXTREMITIES Extremities normal, No deformities, No skin discoloration, and No edema NEURO Awake, alert and oriented x 3, Cranial nerves II-XII grossly intact, Reflexes symmetrical, Normal gait, No involuntary motions., and negative findings: speech normal, mental status intact, Romberg negative, muscle tone normal, muscle strength normal, rapid alternating movements normal, fingerto nose normal, reflexes normal and symmetric, plantar response downgoing bilaterally. Normal gait SKIN Skin color, texture, turgor normal, no suspicious rashes or lesions to exposed skin [place]: Horizontal, torsional and up beating nystagmus elicited when in in supine position and head turned to left. Did also have some dizziness to the right as well BP Controlled (<130/80) Never done Advance Directive Discussion due on 06/18/2024 RSV Vaccine(1 - Risk 60-74 years 1-dose series) due on 07/26/2024 DTaP,Tdap,Td Vaccine(1 - Tdap) due on 11/28/2024 Shingrix Vaccine(1 of 2) due on 11/28/2024 Influenza Vaccine(1) due on 12/16/2024 Covid-19 Vaccine(5 - season) due on 03/08/2025 LDL Cholesterol due on 09/05/2024 Depression Screening due on 12/28/2024 Anxiety Screening due on 12/28/2024 Annual PCP Team Chronic Disease Visit due on 04/10/2025 Prostate Cancer Screening Discussion due on 10/22/2025 Diabetes Screening due on 03/08/2027 Colorectal Cancer Screening due on 12/02/2027 Lipid Screening due on 09/05/2028 Spirometry Completed Abdominal Aortic Aneurysm Screening Completed Hepatitis C Screening Completed Pneumococcal Vaccine: 65+ Completed ASSESSMENT/PLAN: 1. Dizziness - ICD9: 780.4, ICD10: R42 (primary diagnosis) - likely BPPV - no red flag symptoms or exam findings - red flag symptoms discussed, verbalizes understanding - handout on Lazaro provided - MECLIZINE 25 MG TABLET - follow-up if symptoms fail to improve to ER with red flag symptoms 2. Acute cough - ICD9: 786.2, ICD10: R05.1 - per patient it is improving but given his generalized fatigue and intermittent SOB will do CXR - XR CHEST 2V FRONTAL/LAT - COMPLETE BLOOD COUNT AND DIFFERENTIAL - COMPREHENSIVE METABOLIC PANEL 3. Generalized weakness - ICD9: 780.79, ICD10: R53.1 - possibly relate to recent viral URI - COMPLETE BLOOD COUNT AND DIFFERENTIAL - COMPREHENSIVE METABOLIC PANEL 4. SOB (shortness of breath) - ICD9: 786.05, ICD10: R06.02 - no red flag symptoms or exam findings - red flag symptoms discussed, verbalizes understanding - XR CHEST 2V FRONTAL/LAT - follow-up if symptoms fail to improve to ER with red flag symptoms Lisa Javed APRN.[employer] Prescription instructions reviewed with patient as applicable. Patient advised if symptoms do not improve or if symptoms worsen sooner, to contact their primary care physician. Potential red flag symptoms discussed with the patient. Reviewed appropriate action plan to take if red flag symptoms occur. Patient agreeable to treatment plan. Medical Decision Making: Problems: Moderate: New problem with uncertain prognosis Data: Unique test(s) ordered: 3+ Risk: Moderate: Drug management and Moderate risk from testing/treatment Medical Decision Making Level: 4 - Moderate [facility] Telephone encounter Note * Telephone Encounter - Allison Tavares RN - 04/25/2024 11:58 AM EST Patient call in for dizziness and fatigue. Patient has been having issues with URI symptoms. Patient was seen in office for this on 04/10/2024. Nurse Triage assessment completed with protocol recommending for disposition of see PCP in 24 hours. Patient scheduled to see Lisa today 04/25/2024. Care advice reviewed with patient, patient stated understanding. Reason for Disposition [1] MODERATE dizziness (e.g., interferes with normal activities) AND [2] has NOT been evaluated by doctor (or CUSTOMER SERVICE CORRESPONDENCE CLERK/PA) for this (Exception: Dizziness caused by heat exposure, sudden standing, or poor fluid intake.) Answer Assessment - Initial Assessment Questions 1. DESCRIPTION: Feel like he has to grab a hold of something to keep from falling 2. LIGHTHEADED: faint 3. VERTIGO: Denies 4. SEVERITY: Moderate; Patient is feels unsteady when walking but has not fell 5. ONSET: Today was the worst; has been like this for about a week 6. AGGRAVATING FACTORS: Change in head position 7. HEART RATE: 136/90 Heart rate 96 8. CAUSE: Patient has been fighting a viral infection 9. RECURRENT SYMPTOM: Years ago, not recently 10. OTHER SYMPTOMS: Shortness of breath; gets hot at times, will break out in sweat; fatigue Protocols used: Dizziness - [id number] Miscellaneous Notes* Telephone Encounter - Allison Tavares RN - 04/25/2024 11:58 AM EST Patient call in for dizziness and fatigue. Patient has been having issues with URI symptoms. Patient was seen in office for this on 04/10/2024. Nurse Triage assessment completed with protocol recommending for disposition of see PCP in 24 hours. Patient scheduled to see Lisa today 04/25/2024. Care advice reviewed with patient, patient stated understanding. Reason for Disposition [1] MODERATE dizziness (e.g., interferes with normal activities) AND [2] has NOT been evaluated by doctor (or CUSTOMER SERVICE CORRESPONDENCE CLERK/PA) for this (Exception: Dizziness caused by heat exposure, sudden standing, or poor fluid intake.) Answer Assessment - Initial Assessment Questions 1. DESCRIPTION: Feel like he has to grab a hold of something to keep from falling 2. LIGHTHEADED: faint 3. VERTIGO: Denies 4. SEVERITY: Moderate; Patient is feels unsteady when walking but has not fell 5. ONSET: Today was the worst; has been like this for about a week 6. AGGRAVATING FACTORS: Change in head position 7. HEART RATE: 136/90 Heart rate 96 8. CAUSE: Patient has been fighting a viral infection 9. RECURRENT SYMPTOM: Years ago, not recently 10. OTHER SYMPTOMS: Shortness of breath; gets hot at times, will break out in sweat; fatigue Protocols used: Dizziness - [id number] documented in this encounterHol[facility]10-[facility] History of Present illness Narrative* Rojas Dominguez MD - 04/10/2024 11:45 AM EDT Chief Complaint Patient presents with: URI: X 1 week HPI Lazaro Garzon is a 68 year old male who presents here today for Above Complaints.. Patient complaining of 1 week history of cough, SOB, wheezing, fatigue, malaise, headache, myalgias, chills, diarrhea (resolved), sore throat, nausea. Symptoms have worsened in the last 2 days with cough becoming occasionally productive with yellow sputum. Treating with nyquil OTC which does help with sleep and albuterol which helps with wheezing. Denies fever, chest pain, sore throat, new loss of taste/smell, vomiting, sinus pain/pressure, ear pain. No recent sick contacts. Patient did a COVID test today which was negative. Feels like symptoms are worsening. Past medical history, appointments, medications, allergies reviewed. Previous Medical History PAST MEDICAL HISTORY Diagnosis Date Abdominal pain, [...] treatment per pulm Recurrent pneumonia 14 times Previous Surgical History PAST SURGICAL HISTORY Procedure Laterality Date ADENOIDECTOMY [...] 2/> COLUMN/GROUP 04/30/2015 KNEE SURGERY HX Right 1987 LAPS SURG CHOLECYSTECTOMY W/CHOLANGIOGRAPHY 2004 [facility] - Dr. 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 EPIGASTRIC HERNIA,REDUC 07/19/2023 umbilical TONSILLECTOMY PRIMARY/SECONDARY <AGE 12 Tonsillectomy Family History FAMILY HISTORY Problem Relation Age of Onset Hypertension Mother Heart Mother Stroke Mother Allergies Mother Breast Cancer Mother Heart Father of [place] Allergies Father Asthma Daughter Allergies Sister Allergies Brother Allergies Daughter Patient Allergies ALLERGIES Allergen Reactions Sulfa (Sulfonamide * Rash Current Medications Current Outpatient Medications on File Prior to Visit Medication Sig aspirin, enteric coated (ASPIRIN, ENTERIC COATED) 81 mg EC tablet Take 1 tablet by mouth once daily. potassium chloride (K-TAB) 10 mEq tablet Take 2 tablets by mouth once daily. atomoxetine (STRATTERA) 100 mg capsule Take 1 capsule by mouth once daily. tamsulosin (FLOMAX) 0.4 mg esomeprazole (NEXIUM) 40 mg capsule Take 1 capsule by mouth two times a day before meals. losartan (COZAAR) 50 mg tablet Take 1 tablet by mouth once daily. amLODIPine (NORVASC) 5 mg tablet Take 1 tablet by mouth once daily. Cholecalciferol, Vitamin D3, (VITAMIN D) 1,000 unit cap Take 1 capsule by mouth once daily. cyanocobalamin (VITAMIN B-12) 1,000 mcg tab Take 1,000 mcg by mouth once daily. MULTIVITAMIN TAB Take one(1) tablet daily BY MOUTH. albuterol HFA (PROAIR HFA) 90 mcg/actuation inhaler Inhale 2 Puffs as instructed every 4 hours as needed (FOR COUGH OR WHEEZE). atorvastatin (LIPITOR) 20 mg tablet Take 1 tablet by mouth daily at bedtime. For cholesterol. testosterone (ANDROGEL PUMP) 20.25 mg/1.25 gram (1.62 %) transdermal gel APPLY 4 PUMPS TOPICALLY DAILY. oxyCODONE-acetaminophen 5-325 mg (PERCOCET) as needed. CPAP Requires replacement machine at same settings. No current facility-administered medications on file prior to visit. Social History Social History Tobacco Use Smoking status: Former Current packs/day: 0.00 Average packs/day: 2.0 packs/day for 5.0 years (10.0 ttl pk-yrs) Types: Cigarettes Start date: 02/08/1982 Quit date: 02/08/1987 Years since quittin.1 Smokeless tobacco: Former Types: Chew Quit date: 12/03/2017 Tobacco comments: patient smoked for a few months in 2006 Quit chew June 2022 Vaping Use Vaping status: Never Used Substance Use Topics Alcohol use: Not Currently Drug use: Not Currently Comment: marijuana in past not since 20 y/o Review of Symptoms REVIEW OF SYSTEMS See HPI EXAM: BP 130/72 Pulse 73 Temp 36.5 C (97.7 F) Resp 18 Wt (!) 149.1 kg (328 lb 12.8 oz) SpO2 98% BMI 38.99 kg/m General Appearance: Ill appearing, non toxic. Skin: Skin color, texture, turgor normal, no suspicious rashes or lesions. Head: Normocephalic, no masses, lesions, tenderness or abnormalities. Eyes: Anicteric sclera. Pupils are equally round and reactive to light. Extraocular movements are intact. . Ears: External ears normal, canals clear. Nose/Sinuses: Nares normal, septum midline, mucosa normal, no drainage or sinus tenderness. Oropharynx: Lips, mucosa, and tongue normal, teeth and gums normal, oropharynx normal. Neck: Supple, no adenopathy; thyroid symmetric, normal size, no bruits. Lungs: Lungs clear to auscultation. No wheezing, rhonchi, rales.. Heart: RRR without murmur, gallop, or rubs. No ectopy. Health Maintenance List BP Controlled (<130/80) Never done Advance Directive Discussion due on 06/18/2024 RSV Vaccine(1 - Risk 60-74 years 1-dose series) due on 07/26/2024 DTaP,Tdap,Td Vaccine(1 - Tdap) due on 11/28/2024 Shingrix Vaccine(1 of 2) due on 11/28/2024 Influenza Vaccine(1) due on 12/16/2024 Covid-19 Vaccine(5 - 2023- season) due on 03/08/2025 LDL Cholesterol due on 09/05/2024 Depression Screening due on 12/28/2024 Anxiety Screening due on 12/28/2024 Annual PCP Team Chronic Disease Visit due on 03/13/2025 Prostate Cancer Screening Discussion due on 10/22/2025 Diabetes Screening due on 03/08/2027 Colorectal Cancer Screening due on 12/02/2027 Lipid Screening due on 09/05/2028 Spirometry Completed Abdominal Aortic Aneurysm Screening Completed Hepatitis C Screening Completed Pneumococcal Vaccine: 65+ Completed ASSESSMENT/PLAN: 1. Viral URI with cough - ICD9: 465.9, ICD10: J06.9 (primary diagnosis) - Discussed viral etiology and rationale for treatment. - Symptomatic treatment with prn analgesia - Supportive care with fluids and rest - The patient may also use OTC cough and cold meds as needed, warm salt water gargles, throat lozenges and/or OTC throat spray as needed, and nasal saline gtts and suction prn. - Follow up in one week if symptoms persist or sooner if worsening of symptoms - BENZONATATE 100 MG CAPSULE 2. Uncomplicated asthma, unspecified asthma severity, unspecified whether persistent - ICD9: 493.90, ICD10: J45.909 - Mild intermittent asthma without signs of exacerbation. - Continue current medications - given rx for prednisone taper in case of worsening symptoms. Red flags for re-assessment reviewed with patient in detail. - PREDNISONE 10 MG TABLET Rojas Dominguez MD documented in this encounterHol[facility]10-[facility]24 NoteHNO ID: [id number] Author: ROJAS DOMINGUEZ MD Service: ? Author Type: Physician Type: Progress Notes Filed: 04/10/2024 12:17 Note Text: Chief Complaint Patient presents with: URI: X 1 week HPI Lazaro Garzon is a 68 year old male who presents here today for Above Complaints.. Patient complaining of 1 week history of cough, SOB, wheezing, fatigue, malaise, headache, myalgias, chills, diarrhea (resolved), sore throat, nausea. Symptoms have worsened in the last 2 days with cough becoming occasionally productive with yellow sputum. Treating with nyquil OTC which does help with sleep and albuterol which helps with wheezing. Denies fever, chest pain, sore throat, new loss of taste/smell, vomiting, sinus pain/pressure, ear pain. No recent sick contacts. Patient did a COVID test today which was negative. Feels like symptoms are worsening. Past medical history, appointments, medications, allergies reviewed. Previous Medical History PAST MEDICAL HISTORY Diagnosis Date Abdominal pain, [...] treatment per pulm Recurrent pneumonia 14 times Previous Surgical History PAST SURGICAL HISTORY Procedure Laterality Date ADENOIDECTOMY [...] Right 1988 LAPS SURG CHOLECYSTECTOMY W/CHOLANGIOGRAPHY 2004 [facility] - Dr. 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 EPIGASTRIC HERNIA,REDUC 07/19/2023 umbilical TONSILLECTOMY PRIMARY/SECONDARY Tonsillectomy Family History FAMILY HISTORY Problem Relation Age of Onset Hypertension Mother Heart Mother Stroke Mother Allergies Mother Breast Cancer Mother Heart Father of [place] Allergies Father Asthma Daughter Allergies Sister Allergies Brother Allergies Daughter Patient Allergies ALLERGIES Allergen Reactions Sulfa (Sulfonamide * Rash Current Medications Current Outpatient Medications on File Prior to Visit Medication Sig aspirin, enteric coated (ASPIRIN, ENTERIC COATED) 81 mg EC tablet Take 1 tablet by mouth once daily. potassium chloride (K-TAB) 10 mEq tablet Take 2 tablets by mouth once daily. atomoxetine (STRATTERA) 100 mg capsule Take 1 capsule by mouth once daily. tamsulosin (FLOMAX) 0.4 mg esomeprazole (NEXIUM) 40 mg capsule Take 1 capsule by mouth two times a day before meals. losartan (COZAAR) 50 mg tablet Take 1 tablet by mouth once daily. amLODIPine (NORVASC) 5 mg tablet Take 1 tablet by mouth once daily. Cholecalciferol, Vitamin D3, (VITAMIN D) 1,000 unit cap Take 1 capsule by mouth once daily. cyanocobalamin (VITAMIN B-12) 1,000 mcg tab Take 1,000 mcg by mouth once daily. MULTIVITAMIN TAB Take one(1) tablet daily BY MOUTH. albuterol HFA (PROAIR HFA) 90 mcg/actuation inhaler Inhale 2 Puffs as instructed every 4 hours as needed (FOR COUGH OR WHEEZE). atorvastatin (LIPITOR) 20 mg tablet Take 1 tablet by mouth daily at bedtime. For cholesterol. testosterone (ANDROGEL PUMP) 20.25 mg/1.25 gram (1.62 %) transdermal gel APPLY 4 PUMPS TOPICALLY DAILY. oxyCODONE-acetaminophen 5-325 mg (PERCOCET) as needed. CPAP Requires replacement machine at same settings. No current facility-administered medications on file prior to visit. Social History Social History Tobacco Use Smoking status: Former Current packs/day: 0.00 Average packs/day: 2.0 packs/day for 5.0 years (10.0 ttl pk-yrs) Types: Cigarettes Start date: 02/08/1982 Quit date: 02/08/1987 Years since quittin.1 Smokeless tobacco: Former Types: Chew Quit date: 12/03/2017 Tobacco comments: patient smoked for a few months in 2006 Quit chew June 2022 Vaping Use Vaping status: Never Used Substance Use Topics Alcohol use: Not Currently Drug use: Not Currently Comment: marijuana in past not since 20 y/o Review of Symp (more content not included)...[facility] 03-13-2024 NoteHNO ID: [id number] Author: JAGJIT CHEEMA MD Service: ? Author Type: Physician Type: Progress Notes Filed: 03/13/2024 09:26 Note Text: Patient presents with: Follow Up HPI: Patient presents today for office visit for follow up. He says he is feeling better. Work up so far was negative. No diarrhea. Overall back to normal. Had some mild cramping but is much better. Bp is better. N chest pain or shortness of breath. Note was copied and pasted, without alteration from previous note: About 1 month trouble with stomach gi issues. Having diarrhea on and off for the last month. Has lower abd discomfort. Getting progressively worse. Has had diverticulitis before and wonders if it is related. No bloody or black stools. No recent travel hx. No recent antibiotic use. No nausea or vomiting. No urinary issues. No fever. Appetite is ok. Discomfort is mild today. Feels like he has pressure in his lower bowel at times Follow up having CT scan. IMPRESSION: No CT evidence of acute abnormalities or signs of acute inflammation the abdomen or pelvis. Moderate degree of sigmoid colon diverticulosis without evidence of diverticulitis. No CT evidence of mechanical bowel obstruction. Penile implant. Moderately enlarged prostate gland Spinal cord stimulator. Previous lower lumbar posterior decompression 1.6 cm right hepatic lobe cyst slightly increased in size from 2019. No new lesions or hepatomegaly Latest Ref Rn 03/08/2024 WBC 3.70 - 11.00 k/uL 4.15 RBC 4.20 - 6.00 m/uL 5.01 Hemoglobin 13.0 - 17.0 g/dL 14.7 Hematocrit 39.0 - 51.0 % 43.8 MCV 80.0 - 100.0 fL 87.4 MCH 26.0 - 34.0 pg 29.3 MCHC 30.5 - 36.0 g/dL 33.6 RDW-CV 11.5 - 15.0 % 13.4 Platelet Count 150 - 400 k/uL 154 MPV 9.0 - 12.7 fL 11.7 Neut% % 70.9 Abs Neut (ANC) 1.45 - 7.50 k/uL 2.94 Lymph% % 19.8 Abs Lymph 1.00 - 4.00 k/uL 0.82 (L) [place]% % 7.5 Abs [place] <0.87 k/uL 0.31 Eosin% % 1.4 Abs Eosin <0.46 k/uL 0.06 Baso% % 0.2 Abs Baso <0.11 k/uL <0.03 Immature Gran % % 0.2 IMMATURE GRANS (ABS) <0.10 k/uL <0.03 NRBC /100 WBC 0.0 Absolute nRBC <0.01 k/uL <0.01 DTYPE Auto Protein, Total 6.3 - 8.0 g/dL 7.3 Albumin 3.9 - 4.9 g/dL 4.4 Calcium 8.5 - 10.2 mg/dL 9.3 Bilirubin, Total 0.2 - 1.3 mg/dL 0.8 Alkaline Phosphatase 38 - 113 U/L 78 AST 14 - 40 U/L 23 ALT 10 - 54 U/L 31 Glucose 74 - 99 mg/dL 201 (H) BUN 9 - 24 mg/dL 14 Creatinine 0.73 - 1.22 mg/dL 0.97 Sodium 136 - 144 mmol/L 140 Potassium 3.7 - 5.1 mmol/L 3.5 (L) Chloride 98 - 107 mmol/L 105 CO2 22 - 30 mmol/L 26 Anion Gap 8 - 15 mmol/L 9 eGFR >=60 mL/min/1.73m? 86 Legend: (L) Low (H) High MEDICATIONS: Current Outpatient Medications Medication Sig aspirin, enteric coated (ASPIRIN, ENTERIC COATED) 81 mg EC tablet Take 1 tablet by mouth once daily. potassium chloride (K-TAB) 10 mEq tablet Take 2 tablets by mouth once daily. atomoxetine (STRATTERA) 100 mg capsule Take 1 capsule by mouth once daily. tamsulosin (FLOMAX) 0.4 mg esomeprazole (NEXIUM) 40 mg capsule Take 1 capsule by mouth two times a day before meals. losartan (COZAAR) 50 mg tablet Take 1 tablet by mouth once daily. albuterol HFA (PROAIR HFA) 90 mcg/actuation inhaler Inhale 2 Puffs as instructed every 4 hours as needed (FOR COUGH OR WHEEZE). atorvastatin (LIPITOR) 20 mg tablet Take 1 tablet by mouth daily at bedtime. For cholesterol. amLODIPine (NORVASC) 5 mg tablet Take 1 tablet by mouth once daily. testosterone (ANDROGEL PUMP) 20.25 mg/1.25 gram (1.62 %) transdermal gel APPLY 4 PUMPS TOPICALLY DAILY. oxyCODONE-acetaminophen 5-325 mg (PERCOCET) as needed. CPAP Requires replacement machine at same settings. [...] PRIMARY Adenoidectomy COLONOSCOPY N/A 07/20/2016 MAC COLONOSCOPY 01/25/20 (more content not included)...[facility] 03-13-2024 History of Present illness Narrative* Jagjit Cheema MD - 03/13/2024 9:03 AM EDT Patient presents with: Follow Up HPI: Patient presents today for office visit for follow up. He says he is feeling better. Work up so far was negative. No diarrhea. Overall back to normal. Had some mild cramping but is much better. Bp is better. N chest pain or shortness of breath. Note was copied and pasted, without alteration from previous note: About 1 month trouble with stomach gi issues. Having diarrhea on and off for the last month. Has lower abd discomfort. Getting progressively worse. Has had diverticulitis before and wonders if it is related. No bloody or black stools. No recent travel hx. No recent antibiotic use. No nausea or vomiting. No urinary issues. No fever. Appetite is ok. Discomfort is mild today. Feels like he has pressure in his lower bowel at times Follow up having CT scan. IMPRESSION: No CT evidence of acute abnormalities or signs of acute inflammation the abdomen or pelvis. Moderate degree of sigmoid colon diverticulosis without evidence of diverticulitis. No CT evidence of mechanical bowel obstruction. Penile implant. Moderately enlarged prostate gland Spinal cord stimulator. Previous lower lumbar posterior decompression 1.6 cm right hepatic lobe cyst slightly increased in size from 2019. No new lesions or hepatomegaly Latest Ref Rng 03/08/2024 WBC 3.70 - 11.00 k/uL 4.15 RBC 4.20 - 6.00 m/uL 5.01 Hemoglobin 13.0 - 17.0 g/dL 14.7 Hematocrit 39.0 - 51.0 % 43.8 MCV 80.0 - 100.0 fL 87.4 MCH 26.0 - 34.0 pg 29.3 MCHC 30.5 - 36.0 g/dL 33.6 RDW-CV 11.5 - 15.0 % 13.4 Platelet Count 150 - 400 k/uL 154 MPV 9.0 - 12.7 fL 11.7 Neut% % 70.9 Abs Neut (ANC) 1.45 - 7.50 k/uL 2.94 Lymph% % 19.8 Abs Lymph 1.00 - 4.00 k/uL 0.82 (L) [place]% % 7.5 Abs [place] <0.87 k/uL 0.31 Eosin% % 1.4 Abs Eosin <0.46 k/uL 0.06 Baso% % 0.2 Abs Baso <0.11 k/uL <0.03 Immature Gran % % 0.2 IMMATURE GRANS (ABS) <0.10 k/uL <0.03 NRBC /100 WBC 0.0 Absolute nRBC <0.01 k/uL <0.01 DTYPE Auto Protein, Total 6.3 - 8.0 g/dL 7.3 Albumin 3.9 - 4.9 g/dL 4.4 Calcium 8.5 - 10.2 mg/dL 9.3 Bilirubin, Total 0.2 - 1.3 mg/dL 0.8 Alkaline Phosphatase 38 - 113 U/L 78 AST 14 - 40 U/L 23 ALT 10 - 54 U/L 31 Glucose 74 - 99 mg/dL 201 (H) BUN 9 - 24 mg/dL 14 Creatinine 0.73 - 1.22 mg/dL 0.97 Sodium 136 - 144 mmol/L 140 Potassium 3.7 - 5.1 mmol/L 3.5 (L) Chloride 98 - 107 mmol/L 105 CO2 22 - 30 mmol/L 26 Anion Gap 8 - 15 mmol/L 9 eGFR >=60 mL/min/1.73m 86 Legend: (L) Low (H) High MEDICATIONS: Current Outpatient Medications Medication Sig aspirin, enteric coated (ASPIRIN, ENTERIC COATED) 81 mg EC tablet Take 1 tablet by mouth once daily. potassium chloride (K-TAB) 10 mEq tablet Take 2 tablets by mouth once daily. atomoxetine (STRATTERA) 100 mg capsule Take 1 capsule by mouth once daily. tamsulosin (FLOMAX) 0.4 mg esomeprazole (NEXIUM) 40 mg capsule Take 1 capsule by mouth two times a day before meals. losartan (COZAAR) 50 mg tablet Take 1 tablet by mouth once daily. albuterol HFA (PROAIR HFA) 90 mcg/actuation inhaler Inhale 2 Puffs as instructed every 4 hours as needed (FOR COUGH OR WHEEZE). atorvastatin (LIPITOR) 20 mg tablet Take 1 tablet by mouth daily at bedtime. For cholesterol. amLODIPine (NORVASC) 5 mg tablet Take 1 tablet by mouth once daily. testosterone (ANDROGEL PUMP) 20.25 mg/1.25 gram (1.62 %) transdermal gel APPLY 4 PUMPS TOPICALLY DAILY. oxyCODONE-acetaminophen 5-325 mg (PERCOCET) as needed. CPAP Requires replacement machine at same settings. [...] Right 1988 LAPS SURG CHOLECYSTECTOMY W/CHOLANGIOGRAPHY 2004 [facility] - Dr. 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 EPIGASTRIC HERNIA,REDUC 07/19/2023 umbilical TONSILLECTOMY PRIMARY/SECONDARY <AGE 12 Tonsillectomy FAMILY HISTORY Problem Relation Age of Onset Hypertension Mother Heart Mother Stroke Mother Allergies Mother Breast Cancer Mother Heart Father of [place] Allergies Father Asthma Daughter Allergies Sister Allergies Brother Allergies Daughter Social History Tobacco Use Smoking status: Former Current packs/day: 0.00 Average packs/day: 2.0 packs/day for 5.0 years (10.0 ttl pk-yrs) Types: Cigarettes Start date: 02/08/1982 Quit date: 02/08/1987 Years since quittin.1 Smokeless tobacco: Former Types: Chew Quit date: 12/03/2017 Tobacco comments: patient smoked for a few months in 2006 Quit chew June 2022 Vaping Use Vaping status: Never Used Substance Use Topics Alcohol use: Not Currently Drug use: Not Currently Comment: marijuana in past not since 20 y/o Reviewed current medications, allergies, past medical history, surgical history, family history andsocial history today. REVIEW OF SYSTEMS All other reviewed and negative other than HPI. HEALTH MAINTENANCE: Reviewed health maintenance issues today and recommended the following in detail. BP Controlled (<130/80) Never done VITALS: BP 134/72 Pulse 71 Wt (!) 149.2 kg (329 lb) SpO2 98% BMI 39.01 kg/m Last 4 Encounter Wt Readings: Date: Wt: 03/08/2024 148 kg (326 lb 4.5 oz) 12/29/2023 148.8 kg (328 lb) 11/29/2023 147.9 kg (326 lb) 09/05/2023 151 kg (333 lb) PHYSICAL EXAMINATION: General appearance: Well appearing, [...] or cyanosis. Good capillary refill. ASSESSMENT/PLAN: 1. LLQ pain - ICD9: 789.04, ICD10: R10.32 (primary diagnosis) - much improved. Call if recurs. Red flags for re-assessment reviewed with patient in detail. 2. RLQ abdominal pain - ICD9: 789.03, ICD10: R10.31 - stable 3. Diarrhea, unspecified type - ICD9: 787.91, ICD10: R19.7 - stable. Jagjit Cheema MD documented in [facility] Telephone encounter Note * Telephone Encounter - Asuncion Robertson LPN - 03/08/2024 4:41 PM EDT Phoned patient and went over results, notes from Dr Cheema with understanding. Patient will take 2 tablets of potassium with supper tonight and keep his appt on Monday. [facility] Miscellaneous Notes* Telephone Encounter - Asuncion Robertson LPN - 03/08/2024 4:41 PM EDT Phoned patient and went over results, notes from Dr Cheema with understanding. Patient will take 2 tablets of potassium with supper tonight and keep his appt on Monday. * Telephone Encounter - Jagjit Cheema MD - 03/08/2024 4:[address] was ok. Potassium was slightly low. I have him taking potassium. Can take an extra dose today, keep follow up next week. No signs of diverticulitis. documented in this encounterHolzer [facility]09-[facility]24 Telephone encounter Note * Telephone Encounter - Jagjit Cheema MD - 03/08/2024 4:[address] was ok. Potassium was slightly low. I have him taking potassium. Can take an extra dose today, keep follow up next week. No signs of diverticulitis. [facility] History of Present illness Narrative* Fanny Singh, RT(R) - 03/08/2024 4:00 PM EDT Radiology Service Progress Note DATE OF SERVICE: March 08, 2024 TIME: 4:02 PM PATIENT IDENTITY VERIFICATION COMPLETED USING TWO (2) STANDARD IDENTIFIERS: Name and Date of confirmed by patient verbally. FALL SCREENING: Has the patient had 2 falls in the last year or 1 fall with injury or currently using an Ambulatory Assistive Device (Walker, Cane, Wheelchair, Crutches, etc.)? No PATIENT GENDER DATA: Male PATIENT RELEVANT IMPLANT DATA REVIEWED: Yes PATIENT PRESENTS WITH AN IMPLANTABLE OR ATTACHED TRUST MANAGER ASSISTANT: No ALLERGIES: Reviewed and unchanged CONTRAST ALLERGY: NO. EXAM: CT -CONTRAST INDUCED NEPHROPATHY RISK FACTORS: Not applicable CREATININE: Creatinine Date Value Ref Range Status 12/20/2023 1.03 0.73 - 1.22 mg/dL Final 12/13/2023 0.88 0.73 - 1.22 mg/dL Final 09/06/2023 1.04 0.73 - 1.22 mg/dL Final Estimated Glomerular Filtration Rate Date Value Ref Range Status 12/20/2023 80 >=60 mL/min/1.73m Final Comment: Estimated Glomerular Filtration Rate (eGFR) is calculated using the 2020 CKD-EPI creatinine equation. This equation utilizes serum creatinine, sex, and age as parameters. The creatinine assay has traceable calibration to isotope dilution- mass spectrometry. Refer to KDIGO guidelines for clinical interpretation. In patients with unstable renal function, e.g. those with acute kidney injury, the eGFRmay not accurately reflect actual GFR. eGFR- Date Value Ref Range Status 06/04/2021 >60 Final P.O.C.T. RESULTS: N/A March 08, 2024 TREATMENT: N/A PERIPHERAL IV DATA: Ambulatory: A peripheral IV was started in the Left with a Angio cath: 20 gauge. RADIOLOGY DEPARTMENT: CT; Exam(s) Completed: Abdomen/Pelvis SIGNATURE: RT Yamile(R) PATIENT NAME: Lazaro Garzon DATE: March 08, 2024 TIME: 4:02 PM documented in this encounterHolzer Hospital09-20-2024 NoteHNO ID: [id number] Author: FANNY SINGH RT(R) Service: Radiology Author Type: Technologist Type: Progress Notes Filed: 03/08/2024 16:03 Note Text: Radiology Service Progress Note DATE OF SERVICE: March 08, 2024 TIME: 4:02 PM PATIENT IDENTITY VERIFICATION COMPLETED USING TWO (2) STANDARD IDENTIFIERS: Name and Date of confirmed by patient verbally. FALL SCREENING: Has the patient had 2 falls in the last year or 1 fall with injury or currently using an Ambulatory Assistive Device (Walker, Cane, Wheelchair, Crutches, etc.)? No PATIENT GENDER DATA: Male PATIENT RELEVANT IMPLANT DATA REVIEWED: Yes PATIENT PRESENTS WITH AN IMPLANTABLE OR ATTACHED TRUST MANAGER ASSISTANT: No ALLERGIES: Reviewed and unchanged CONTRAST ALLERGY: NO. EXAM: CT -CONTRAST INDUCED NEPHROPATHY RISK FACTORS: Not applicable CREATININE: Creatinine Date Value Ref Range Status 12/20/2023 1.03 0.73 - 1.22 mg/dL Final 12/13/2023 0.88 0.73 - 1.22 mg/dL Final 09/06/2023 1.04 0.73 - 1.22 mg/dL Final Estimated Glomerular Filtration Rate Date Value Ref Range Status 12/20/2023 80 >=60 mL/min/1.73m? Final Comment: Estimated Glomerular Filtration Rate (eGFR) is calculated using the 2020 CKD-EPI creatinine equation. This equation utilizes serum creatinine, sex, and age as parameters. The creatinine assay has traceable calibration to isotope dilution-mass spectrometry. Refer to KDIGO guidelines for clinical interpretation. In patients with unstable renal function, e.g. those with acute kidney injury, the eGFR may not accurately reflect actual GFR. eGFR- Date Value Ref Range Status 06/04/2021 >60 Final P.O.C.T. RESULTS: N/A March 08, 2024 TREATMENT: N/A PERIPHERAL IV DATA: Ambulatory: A peripheral IV was started in the Left with a Angio cath: 20 gauge. RADIOLOGY DEPARTMENT: CT; Exam(s) Completed: Abdomen/Pelvis SIGNATURE: Fanny Singh, RT(R) PATIENT NAME: Lazaro Garzon DATE: March 08, 2024 TIME: 4:02 [facility]09-20-2024 NoteHNO ID: [id number] Author: JAGJIT CHEEMA MD Service: ? Author Type: Physician Type: Progress Notes Filed: 03/08/2024 10:13 Note Text: Patient presents with: 6 Month Exam HPI: Patient presents today for office visit for follow up. HTN: Patient is compliant with meds Yes Monitors bp at home: Yes. Denies side effects: Yes. Chest pain: No. Dyspnea: No. Edema: No. Palpitations: No. Syncope: No. Headache: No. Dizziness: No. HYPERLIPIDEMIA: Patient is taking medications: Yes. Patient is watching diet: Yes. Patient denies myalgias: Yes. Patient denies gi upset: No GERD: Patient takes: nexium Heartburn is controlled: Yes. Bloody or black stools: No. Bowel changes: Yes. DEENA:still using cpap. Benefiting from its use. About 1 month trouble with stomach gi issues. Having diarrhea on and off for the last month. Has lower abd discomfort. Getting progressively worse. Has had diverticulitis before and wonders if it is related. No bloody or black stools. No recent travel hx. No recent antibiotic use. No nausea or vomiting. No urinary issues. No fever. Appetite is ok. Discomfort is mild today. Feels like he has pressure in his lower bowel at times. Gautam: Thinks hussain is helping his focus and finish sentences Still seeing [facility]. Still on adrogen therapy per urology. MEDICATIONS: Current Outpatient Medications Medication Sig potassium chloride (K-TAB) 10 mEq tablet Take 2 tablets by mouth once daily. atomoxetine (STRATTERA) 100 mg capsule Take 1 capsule by mouth once daily. tamsulosin (FLOMAX) 0.4 mg esomeprazole (NEXIUM) 40 mg capsule Take 1 capsule by mouth two times a day before meals. losartan (COZAAR) 50 mg tablet Take 1 tablet by mouth once daily. atorvastatin (LIPITOR) 20 mg tablet Take 1 tablet by mouth daily at bedtime. For cholesterol. amLODIPine (NORVASC) 5 mg tablet Take 1 tablet by mouth once daily. testosterone (ANDROGEL PUMP) 20.25 mg/1.25 gram (1.62 %) transdermal gel APPLY 4 PUMPS TOPICALLY DAILY. cyanocobalamin (VITAMIN B-12) 1,000 mcg tab Take 1,000 mcg by mouth once daily. aspirin, enteric coated (ASPIRIN, ENTERIC COATED) 81 mg EC tablet Take 1 tablet by mouth once daily. albuterol HFA (PROAIR HFA) 90 mcg/actuation inhaler Inhale 2 Puffs as instructed every 4 hours as needed (FOR COUGH OR WHEEZE). oxyCODONE-acetaminophen 5-325 mg (PERCOCET) as needed. CPAP Requires replacement machine at same settings. Cholecalciferol, Vitamin D3, (VITAMIN D) 1,000 unit cap Take 1 capsule by mouth once daily. MULTIVITAMIN TAB Take [...] Right 1988 LAPS SURG CHOLECYSTECTOMY W/CHOLANGIOGRAPHY 2004 [facility] - Dr. 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 EPIGASTRIC HERNIA,REDUC 07/19/2023 umbilical TONSILLECTOMY PRIMARY/SECONDARY Tonsillectomy FAMILY HISTORY Problem Relation Age of Onset Hypertension Mother Heart Mother Stroke Mother Allergies Mother Breast Cancer Mother Heart Father of [place] Allergies Father Asthma Daughter Allergies Sister Allergies Brother Allergies Daughter Social History Tobacco Use Smoking status: Former Current packs/day: 0.00 Average packs/day: 2.0 packs/day for 5.0 years (10.0 ttl pk-yrs) Types: Cigarettes Start date: 02/08/1982 Quit date: 02/08/1987 Years since quittin.1 Smokeless tobacco: Former Types: Chew Quit date: 12/03/2017 (more content not included)...[facility] 03-08-2024 History of Present illness Narrative* Jagjit Cheema MD - 03/08/2024 9:36 AM EDT Patient presents with: 6 Month Exam HPI: Patient presents today for office visit for follow up. HTN: Patient is compliant with meds Yes Monitors bp at home: Yes. Denies side effects: Yes. Chest pain: No. Dyspnea: No. Edema: No. Palpitations: No. Syncope: No. Headache: No. Dizziness: No. HYPERLIPIDEMIA: Patient is taking medications: Yes. Patient is watching diet: Yes. Patient denies myalgias: Yes. Patient denies gi upset: No GERD: Patient takes: nexium Heartburn is controlled: Yes. Bloody or black stools: No. Bowel changes: Yes. DEENA:still using cpap. Benefiting from its use. About 1 month trouble with stomach gi issues. Having diarrhea on and off for the last month. Has lower abd discomfort. Getting progressively worse. Has had diverticulitis before and wonders if it is related. No bloody or black stools. No recent travel hx. No recent antibiotic use. No nausea or vomiting. No urinary issues. No fever. Appetite is ok. Discomfort is mild today. Feels like he has pressure in his lower bowel at times. Gautam: Thinks hussain is helping his focus and finish sentences Still seeing [facility]. Still on adrogen therapy per urology. MEDICATIONS: Current Outpatient Medications Medication Sig potassium chloride (K-TAB) 10 mEq tablet Take 2 tablets by mouth once daily. atomoxetine (STRATTERA) 100 mg capsule Take 1 capsule by mouth once daily. tamsulosin (FLOMAX) 0.4 mg esomeprazole (NEXIUM) 40 mg capsule Take 1 capsule by mouth two times a day before meals. losartan (COZAAR) 50 mg tablet Take 1 tablet by mouth once daily. atorvastatin (LIPITOR) 20 mg tablet Take 1 tablet by mouth daily at bedtime. For cholesterol. amLODIPine (NORVASC) 5 mg tablet Take 1 tablet by mouth once daily. testosterone (ANDROGEL PUMP) 20.25 mg/1.25 gram (1.62 %) transdermal gel APPLY 4 PUMPS TOPICALLY DAILY. cyanocobalamin (VITAMIN B-12) 1,000 mcg tab Take 1,000 mcg by mouth once daily. aspirin, enteric coated (ASPIRIN, ENTERIC COATED) 81 mg EC tablet Take 1 tablet by mouth once daily. albuterol HFA (PROAIR HFA) 90 mcg/actuation inhaler Inhale 2 Puffs as instructed every 4 hours as needed (FOR COUGH OR WHEEZE). oxyCODONE-acetaminophen 5-325 mg (PERCOCET) as needed. CPAP Requires replacement machine at same settings. Cholecalciferol, Vitamin D3, (VITAMIN D) 1,000 unit cap Take 1 capsule by mouth once daily. MULTIVITAMIN TAB Take [...] Right 1988 LAPS SURG CHOLECYSTECTOMY W/CHOLANGIOGRAPHY 2004 [facility] - Dr. 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 EPIGASTRIC HERNIA,REDUC 07/19/2023 umbilical TONSILLECTOMY PRIMARY/SECONDARY <AGE 12 Tonsillectomy FAMILY HISTORY Problem Relation Age of Onset Hypertension Mother Heart Mother Stroke Mother Allergies Mother Breast Cancer Mother Heart Father of [place] Allergies Father Asthma Daughter Allergies Sister Allergies Brother Allergies Daughter Social History Tobacco Use Smoking status: Former Current packs/day: 0.00 Average packs/day: 2.0 packs/day for 5.0 years (10.0 ttl pk-yrs) Types: Cigarettes Start date: 02/08/1982 Quit date: 02/08/1987 Years since quittin.1 Smokeless tobacco: Former Types: Chew Quit date: 12/03/2017 Tobacco comments: patient smoked for a few months in 2006 Quit chew June 2022 Vaping Use Vaping status: Never Used Substance Use Topics Alcohol use: Not Currently Drug use: Not Currently Comment: marijuana in past not since 20 y/o Reviewed current medications, allergies, past medical history, surgical history, family history andsocial history today. REVIEW OF SYSTEMS All other reviewed and negative other than HPI. HEALTH MAINTENANCE: Reviewed health maintenance issues today and recommended the following in detail. BP Controlled (<130/80) Never done Covid-19 Vaccine( season) due on 02/18/2024 VITALS: BP 148/82 Pulse 77 Temp 37.3 C (99.1 F) Wt (!) 148 kg (326 lb 4.5 oz) SpO2 96% BMI 38.69 kg/m Last 4 Encounter Wt Readings: Date: Wt: 12/29/2023 148.8 kg (328 lb) 11/29/2023 147.9 kg (326 lb) 09/05/2023 151 kg (333 lb) 07/26/2023 149.7 kg (330 lb) PHYSICAL EXAMINATION: General appearance: Well appearing, alert, in no acute distress, well-hydrated, well nourished. Skin: Skin color, texture, turgor normal, no suspicious rashes or lesions Head: Normocephalic, no masses, lesions, tenderness or abnormalities Eyes: Anicteric sclera. Pupils are equally round and reactive to light. Extraocular movements are intact. Neck: Supple, no adenopathy; thyroid symmetric, normal size, no bruits Lungs: Lungs clear to auscultation. No wheezing, rhonchi, rales Heart: RRR without murmur, gallop, or rubs. No ectopy Abdomen: soft, tender in right and left lower quadrant. No rebound or guarding. Extremities: No deformities, edema, skin discoloration, clubbing or cyanosis. Good capillary refill. Musculoskeletal: No joint swelling, deformity, or tenderness ASSESSMENT/PLAN: 1. Coronary artery disease 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 angina pectoris- ICD9: 414.01, ICD10: I25.10 (primary diagnosis) - continue to follow with [facility]. 2. Hyperlipidemia, unspecified hyperlipidemia type - ICD9: 272.4, ICD10: E78.5 - Controlled - Continue current medications - Counseled on healthy diet and regular exercise 3. Presence of stent in coronary artery - ICD9: V45.82, ICD10: Z95.5 - follow up. 4. Sleep apnea, unspecified type - ICD9: 780.57, ICD10: G47.30 - continue cpap 5. Uncomplicated asthma, unspecified asthma severity, unspecified whether persistent - ICD9: 493.90, ICD10: J45.909 - stable. 6. History of pulmonary embolism - ICD9: V12.55, ICD10: Z86.711 -stable. Doing well. 7. History of TIAs - ICD9: V12.54, ICD10: Z86.73 - stable. 8. Gastroesophageal reflux disease, unspecified whether esophagitis present - ICD9: 530.81, ICD10: K21.9 - continue current meds. 9. Diarrhea, unspecified type - ICD9: 787.91, ICD10: R19.7 - check stool studies. Get ct today. Red flags for re-assessment reviewed with patient in detail. - COMPLETE BLOOD COUNT AND DIFFERENTIAL - CRYPTOSPORIDIUM AND GIARDIA ANTIGENS BY EIA - FECAL LACTOFERRIN/LEUKOCYTES - ENTERIC BACTERIAL PANEL BY PCR - C. DIFFICILE PCR - CT ABD/PEL W IVCON - IV CONTRAST (RADIOLOGY PROCEDURE) - ENTERIC CONTRAST (RADIOLOGY PROCEDURE) 10. LLQ pain - ICD9: 789.04, ICD10: R10.32 -as above. Consider antibiotics etc. Depending on ct. Red flags for re- assessment reviewed with patient in detail. Close follow up. - COMPLETE BLOOD COUNT AND DIFFERENTIAL - COMPREHENSIVE METABOLIC PANEL - C. DIFFICILE PCR 11. Chronic RLQ pain - ICD9: 789.03, 338.29, ICD10: R10.31, G89.29 - COMPLETE BLOOD COUNT AND DIFFERENTIAL - COMPREHENSIVE METABOLIC PANEL - URINALYSIS, WITH MICROSCOPIC - URINE CULTURE - C. DIFFICILE PCR 12. Left lower quadrant abdominal pain - ICD9: 789.04, ICD10: R10.32 - COMPLETE BLOOD COUNT AND DIFFERENTIAL - COMPREHENSIVE METABOLIC PANEL - URINALYSIS, WITH MICROSCOPIC - URINE CULTURE - CT ABD/PEL W IVCON Jagjit Cheema MD RTO early next weeks. [facility] Instructions* Patient Instructions* Beverley Gutierrez APRN.CNP - 01/09/2024 3:52 PM EDT 1) Paxlovid ordered 2) Hold atorvastatin while on medication 3) Rest & plenty of fluids 4) See Susan 01/26/24 documented in this encounterHol[facility]07-[facility]-2024 NoteHNO ID: [id number] Author: BEVERLEY GUTIERREZ APRN.ROSITA Service: ? Author Type: Clinical Nurse Specialist Type: Progress Notes Filed: 01/09/2024 15:53 Note Text: This Team Access Model visit is a phone encounter. It required patient-provider interaction for the medical decision making as documented below. Chief Reason For Appointment No chief complaint on file. Xtelac-ro-eal and people from was sick. Lazaro Garzon is a 68 year old male who presents for a telephone/virtual visit Last office visit date: 12/29/2023 Accompanied By self only Have you had any critical events, hospital stays, ER visits, surgeries or procedures since your last visit here in our office: Tested Positive for Covid Stomach and bowels messed up Drainage from sinuses is terrible Aches every where Headache Intake and chart review completed: Y/N: Yes Allergies, medications, problem list, and history reviewed: Yes Specialists/Other Healthcare Providers Seen: Patient Care Team: Jagjit Cheema MD as PCP - General (Family Medicine) Concerns/history: None Active Problems ACTIVE PROBLEM LIST Enlarged Prostate - 07/26/2023 First Degree Atrioventricular Block - 07/26/2023 Presence of Stent in Coronary Artery - 07/26/2023 Testosterone Deficiency - 07/26/2023 Former Tobacco Use - 07/05/2023 History of Tias - 07/05/2023 Urinary Tract Infection - 12/16/2022 Gastric Intestinal Metaplasia - 12/01/2022 Comment: Last egd in 2022. History of Colonic Polyps - 12/01/2022 History of Pulmonary Embolism - 10/25/2022 Atrial Flutter (Hcc) - 09/22/2022 Spinal Stenosis of Lumbar Region With Neurogenic Claudication - 06/22/2020 Comment: 11/08/19 MRI severe L4-5, moderate L2-3, L3-4, anterior wedge compression L1 Neural Foraminal Stenosis of Cervical Spine - 06/22/2020 Comment: Moderate C5-C6 Polyarthritis - 09/14/2017 Hypokalemia - 09/13/2017 Asthma - 05/06/2016 Comment: childhood Adrenal Nodule (Hcc) - 05/06/2016 Comment: unchanged after >2 years Lung Nodule - 05/06/2016 Comment: repeat ct in 01/02 Not seen in 2019 ct Peyronie's Disease - 11/05/2014 Hyperhydrosis Disorder - 12/25/2013 CAD (coronary artery disease) s/p PTCA/STENT. - 12/25/2013 Comment: 02/29/20 admit ED to [facility] chest pain,HUGGINS . EKG no changes. Stopped anticoag on his own. troponins negative x 3, d-dimer neg 02/29/20 nuclear stress with normal uptake, no ischemia, EF 66% Sleep Apnea - 12/25/2013 Asbestos Exposure - 03/20/2012 Diaphragmatic Hernia Without Mention of Obstruction Or Gangrene - 05/24/2011 Esophageal Reflux - 05/24/2011 Hyperlipidemia - 09/30/2005 ROS: As above PAST SURGICAL HISTORY Procedure Laterality Date ADENOIDECTOMY [...] Right 1988 LAPS SURG CHOLECYSTECTOMY W/CHOLANGIOGRAPHY 2004 [facility] - Dr. 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 EPIGASTRIC HERNIA,REDUC 07/19/2023 umbilical TONSILLECTOMY PRIMARY/SECONDARY Tonsillectomy Medication List Current Outpatient Medications Medication Sig Dispense Refill aspirin, enteric coated (ASPIRIN, ENTERIC COATED) 81 mg EC tablet Take 1 tablet by mouth once daily. potassium chloride (K-TAB) 10 mEq tablet Take 2 tablets by mouth once daily. 180 tablet 1 atomoxetine (STRATTERA) 100 mg capsule Take 1 capsule by mouth once daily. 30 capsule 11 tamsulosin (FLOMAX) 0.4 mg esomeprazole (NEXIUM) 40 mg capsule Take 1 capsule by mouth two times a day before meals. 180 capsule 1 losartan (COZAAR) 50 mg tablet Take 1 tablet by mouth once daily. 90 tablet 3 albuterol HFA (PROAIR HFA) 90 mcg/actuation inhaler Inhale 2 Puffs as instructed every 4 hours as needed (FOR COUGH OR WHEEZE). 18 g 2 atorvastatin (LIPITOR) 20 mg tablet Take 1 tablet by mouth daily at bedtime. For cholesterol. 90 tablet 3 amLODIPine (NORVASC) 5 mg tablet Take 1 tablet by mouth once daily. 7 tablet 0 testosterone (ANDROGEL PUMP) 20.25 mg/1.25 gram (1.62 %) transdermal gel APPLY 4 PUMPS TOPICALLY DAILY. oxyCODONE-acetaminophen 5-325 mg (PERCOCET) as needed. CPAP Requires replacement machine at same settings. 1 Device 0 Cholecalciferol, Vitamin D3, (VITAMIN D) 1,000 unit cap Take 1 capsule by mouth once daily. 90 capsule 3 cyanocobalamin (VITAMIN B-12) 1,000 mcg tab Take 1,000 mcg by mouth once daily. MULTIVITAMIN TAB Take one(1) tablet daily BY MOUTH. 0 No current facility-administered medicat (more content not included)...[facility]07-23-2024 History of Present illness Narrative* Beverley Gutierrez APRN.EDGE POLISHER - 01/09/2024 3:40 PM EDT This Team Access Model visit is a phone encounter. It required patient-provider interaction for themedical decision making as documented below. Chief Reason For Appointment No chief complaint on file. Kalaul-lr-awv and people from was sick. Lazaro Garzon is a 68 year old male who presents for a telephone/virtual visit Last office visit date: 12/29/2023 Accompanied By self only Have you had any critical events, hospital stays, ER visits, surgeries or procedures since your last visit here in our office: Tested Positive for Covid Stomach and bowels messed up Drainage from sinuses is terrible Aches every where Headache Intake and chart review completed: Y/N: Yes Allergies, medications, problem list, and history reviewed: Yes Specialists/Other Healthcare Providers Seen: Patient Care Team: Jagjit Cheema MD as PCP - General (Family Medicine) Concerns/history: None Active Problems ACTIVE PROBLEM LIST Enlarged Prostate - 07/26/2023 First Degree Atrioventricular Block - 07/26/2023 Presence of Stent in Coronary Artery - 07/26/2023 Testosterone Deficiency - 07/26/2023 Former Tobacco Use - 07/05/2023 History of Tias - 07/05/2023 Urinary Tract Infection - 12/16/2022 Gastric Intestinal Metaplasia - 12/01/2022 Comment: Last egd in 2022. History of Colonic Polyps - 12/01/2022 History of Pulmonary Embolism - 10/25/2022 Atrial Flutter (Hcc) - 09/22/2022 Spinal Stenosis of Lumbar Region With Neurogenic Claudication - 06/22/2020 Comment: 11/08/19 MRI severe L4-5, moderate L2-3, L3-4, anterior wedge compression L1 Neural Foraminal Stenosis of Cervical Spine - 06/22/2020 Comment: Moderate C5-C6 Polyarthritis - 09/14/2017 Hypokalemia - 09/13/2017 Asthma - 05/06/2016 Comment: childhood Adrenal Nodule (Hcc) - 05/06/2016 Comment: unchanged after >2 years Lung Nodule - 05/06/2016 Comment: repeat ct in 01/02 Not seen in 2019 ct Peyronie's Disease - 11/05/2014 Hyperhydrosis Disorder - 12/25/2013 CAD (coronary artery disease) s/p PTCA/STENT. - 12/25/2013 Comment: 02/29/20 admit ED to [facility] chest pain,HUGGINS . EKG no changes. Stopped anticoag on his own. troponins negative x 3, d-dimer neg 02/29/20 nuclear stress with normal uptake, no ischemia, EF 66% Sleep Apnea - 12/25/2013 Asbestos Exposure - 03/20/2012 Diaphragmatic Hernia Without Mention of Obstruction Or Gangrene - 05/24/2011 Esophageal Reflux - 05/24/2011 Hyperlipidemia - 09/30/2005 ROS: As above PAST SURGICAL HISTORY Procedure Laterality Date ADENOIDECTOMY [...] Right 1988 LAPS SURG CHOLECYSTECTOMY W/CHOLANGIOGRAPHY 2004 [facility] - Dr. 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 EPIGASTRIC HERNIA,REDUC 07/19/2023 umbilical TONSILLECTOMY PRIMARY/SECONDARY <AGE 14 Tonsillectomy Medication List Current Outpatient Medications Medication Sig Dispense Refill aspirin, enteric coated (ASPIRIN, ENTERIC COATED) 81 mg EC tablet Take 1 tablet by mouth once daily. potassium chloride (K-TAB) 10 mEq tablet Take 2 tablets by mouth once daily. 180 tablet 1 atomoxetine (STRATTERA) 100 mg capsule Take 1 capsule by mouth once daily. 30 capsule 11 tamsulosin (FLOMAX) 0.4 mg esomeprazole (NEXIUM) 40 mg capsule Take 1 capsule by mouth two times a day before meals. 180 capsule 1 losartan (COZAAR) 50 mg tablet Take 1 tablet by mouth once daily. 90 tablet 3 albuterol HFA (PROAIR HFA) 90 mcg/actuation inhaler Inhale 2 Puffs as instructed every 4 hours as needed (FOR COUGH OR WHEEZE). 18 g 2 atorvastatin (LIPITOR) 20 mg tablet Take 1 tablet by mouth daily at bedtime. For cholesterol. 90 tablet 3 amLODIPine (NORVASC) 5 mg tablet Take 1 tablet by mouth once daily. 7 tablet 0 testosterone (ANDROGEL PUMP) 20.25 mg/1.25 gram (1.62 %) transdermal gel APPLY 4 PUMPS TOPICALLY DAILY. oxyCODONE-acetaminophen 5-325 mg (PERCOCET) as needed. CPAP Requires replacement machine at same settings. 1 Device 0 Cholecalciferol, Vitamin D3, (VITAMIN D) 1,000 unit cap Take 1 capsule by mouth once daily. 90 capsule 3 cyanocobalamin (VITAMIN B-12) 1,000 mcg tab Take 1,000 mcg by mouth once daily. MULTIVITAMIN TAB Take one(1) tablet daily BY MOUTH. 0 No current facility-administered medications for this visit. Weight Summary: Weight change: There is no height or weight on file to calculate BMI. Last Wt 12/29/23 : (!) 148.8 kg (328 lb) 11/29/23 : (!) 147.9 kg (326 lb) 09/05/23 : (!) 151 kg (333 lb) 07/26/23 : (!) 149.7 kg (330 lb) 07/05/23 : (!) 154.7 kg (341 lb) Physical Exam: There were no vitals taken for this visit. General: alert and appropriate, in no distress Unable to assess, phone appt. SCREENINGS Health Maintenance Listing BP Controlled (<130/80) Never done TEST RESULTS: Lab and Diagnositic Studies: A/P: ASSESSMENT/PLAN: 1. COVID-19 - ICD9: 079.89, ICD10: U07.1 Tested positive today - NIRMATRELVIR 300 MG (150 MG X2)-RITONAVIR 100 MG TABLET,DOSE PACK - Will hold atorvastatin while on medication - If condition worsens, SOB or leg swelling, go to ER- states understanding - Discussed isolating 10 days Discussed treatment plan and patient voices understanding. Patient's questions answered appropriately. Medications and potential side effects were discussed and patient voices understanding. Return to the office as scheduled or as needed for worsening/no improvement. Beverley Gutierrez APRN.[employer]ER Follow Up Plans: 01/26/24 Nurse to discuss sign up for my chart if applies. Send email link after confirming email address documented in this encounterHol[facility]07-[facility] History of Present illness Narrative* Jagjit Cheema MD - 12/29/2023 8:00 AM EDT Patient presents with: Follow Up HPI: Patient presents today for office visit for follow up. ADD: Current Treatment: Strajudy Feels treatment is working well: Yes. Weight loss: No. Insomnia: No. GASTROENTEROLOGY complaints: No. Tremor: No. Mood disorder: No. Chest pain/Palpitations: No. Aware of risks associated with controlled substance use: Yes. Hx of misuse/abuse/diversion of meds: No. Strattera increased to 100 mg daily at last OV. Last here on 11/29/23 and felt medication was working well. Stated he had much better focus and concentration and felt more energized. Still doing well. Mentions being more tired here recently. Recently had a respiratory infection. Had ct scan that didnot show infiltrate or pe. Did show old nodules unchanged in nearly 8 years Saw cardiology who stopped eliquis. He is not taking asa. Suggested he should resume 81 mg a day for prevention. No fever or chills. Has finished his antibiotics and steroids. Overall is feeling better. Breathing is slowly returning to normal. MEDICATIONS: Current Outpatient Medications Medication Sig potassium chloride (K-TAB) 10 mEq tablet Take 2 tablets by mouth once daily. atomoxetine (STRATTERA) 100 mg capsule Take 1 capsule by mouth once daily. tamsulosin (FLOMAX) 0.4 mg esomeprazole (NEXIUM) 40 mg capsule Take 1 capsule by mouth two times a day before meals. losartan (COZAAR) 50 mg tablet Take 1 tablet by mouth once daily. albuterol HFA (PROAIR HFA) 90 mcg/actuation inhaler Inhale 2 Puffs as instructed every 4 hours as needed (FOR COUGH OR WHEEZE). apixaban (ELIQUIS) 5 mg tab(s) Take 1 tablet by mouth twice daily. atorvastatin (LIPITOR) 20 mg tablet Take 1 tablet by mouth daily at bedtime. For cholesterol. amLODIPine (NORVASC) 5 mg tablet Take 1 tablet by mouth once daily. testosterone (ANDROGEL PUMP) 20.25 mg/1.25 gram (1.62 %) transdermal gel APPLY 4 PUMPS TOPICALLY DAILY. oxyCODONE-acetaminophen 5-325 mg (PERCOCET) as needed. CPAP Requires replacement machine at same settings. [...] Right 1988 LAPS SURG CHOLECYSTECTOMY W/CHOLANGIOGRAPHY 2004 [facility] - Dr. 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 EPIGASTRIC HERNIA,REDUC 07/19/2023 umbilical TONSILLECTOMY PRIMARY/SECONDARY <AGE 12 Tonsillectomy FAMILY HISTORY Problem Relation Age of Onset Hypertension Mother Heart Mother Stroke Mother Allergies Mother Breast Cancer Mother Heart Father of [place] Allergies Father Asthma Daughter Allergies Sister Allergies [...] past medical history, surgical history, family history andsocial history today. REVIEW OF SYSTEMS No gi issues. All other reviewed and negative other than HPI. HEALTH MAINTENANCE: Reviewed health maintenance issues today and recommended the following in detail. BP Controlled (<130/80) Never done Behavioral Health Screening -Behavioral Health Screening PHQ-2 Score: 0 (Lower risk for depression) LEOBARDO-2 Score: 0 (Lower risk for anxiety) Recommendation: no further intervention at this time Covid-19 Vaccine() due on 11/24/2023 VITALS: BP 176/78 Pulse 79 Ht 195.6 cm (6' 5) Wt (!) 148.8 kg (328 lb) SpO2 97% BMI 38.90 kg/m Last 4 Encounter Wt Readings: Date: Wt: 11/29/2023 147.9 kg (326 lb) 09/05/2023 151 kg (333 lb) 07/26/2023 149.7 kg (330 lb) 07/05/2023 154.7 kg (341 lb) PHYSICAL EXAMINATION: General appearance: Well appearing, [...] joint swelling, deformity, or tenderness ASSESSMENT/PLAN: 1. Bronchitis - ICD9: 490, ICD10: J40 (primary diagnosis) - continue to follow. Recheck one month. Recheck bp as well. 2. Atrial flutter, unspecified type (HCC) - ICD9: 427.32, ICD10: I48.92 - now off eliquis. - resume asa. 3. Uncomplicated asthma, unspecified asthma severity, unspecified whether persistent - ICD9: 493.90, ICD10: J45.909 - follow progress. 4. Fatigue, unspecified type - ICD9: 780.79, ICD10: R53.83 - see if improves once over recent illness. If does not may need to consider changing meds slightly. Jagjit Cheema MD RTO in one month documented in this encounterHolzer Hospital07-12-2024 NoteHNO ID: [id number] Author: JAGJIT CHEEMA MD Service: ? Author Type: Physician Type: Progress Notes Filed: 12/29/2023 08:25 Note Text: Patient presents with: Follow Up HPI: Patient presents today for office visit for follow up. ADD: Current Treatment: Strattera Feels treatment is working well: Yes. Weight loss: No. Insomnia: No. GASTROENTEROLOGY complaints: No. Tremor: No. Mood disorder: No. Chest pain/Palpitations: No. Aware of risks associated with controlled substance use: Yes. Hx of misuse/abuse/diversion of meds: No. Strattera increased to 100 mg daily at last OV. Last here on 11/29/23 and felt medication was working well. Stated he had much better focus and concentration and felt more energized. Still doing well. Mentions being more tired here recently. Recently had a respiratory infection. Had ct scan that did not show infiltrate or pe. Did show old nodules unchanged in nearly 8 years Saw cardiology who stopped eliquis. He is not taking asa. Suggested he should resume 81 mg a day for prevention. No fever or chills. Has finished his antibiotics and steroids. Overall is feeling better. Breathing is slowly returning to normal. MEDICATIONS: Current Outpatient Medications Medication Sig potassium chloride (K-TAB) 10 mEq tablet Take 2 tablets by mouth once daily. atomoxetine (STRATTERA) 100 mg capsule Take 1 capsule by mouth once daily. tamsulosin (FLOMAX) 0.4 mg esomeprazole (NEXIUM) 40 mg capsule Take 1 capsule by mouth two times a day before meals. losartan (COZAAR) 50 mg tablet Take 1 tablet by mouth once daily. albuterol HFA (PROAIR HFA) 90 mcg/actuation inhaler Inhale 2 Puffs as instructed every 4 hours as needed (FOR COUGH OR WHEEZE). apixaban (ELIQUIS) 5 mg tab(s) Take 1 tablet by mouth twice daily. atorvastatin (LIPITOR) 20 mg tablet Take 1 tablet by mouth daily at bedtime. For cholesterol. amLODIPine (NORVASC) 5 mg tablet Take 1 tablet by mouth once daily. testosterone (ANDROGEL PUMP) 20.25 mg/1.25 gram (1.62 %) transdermal gel APPLY 4 PUMPS TOPICALLY DAILY. oxyCODONE-acetaminophen 5-325 mg (PERCOCET) as needed. CPAP Requires replacement machine at same settings. [...] Right 1988 LAPS SURG CHOLECYSTECTOMY W/CHOLANGIOGRAPHY 2004 [facility] - Dr. 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 EPIGASTRIC HERNIA,REDUC 07/19/2023 umbilical TONSILLECTOMY PRIMARY/SECONDARY Tonsillectomy FAMILY HISTORY Problem Relation Age of Onset Hypertension Mother Heart Mother Stroke Mother Allergies Mother Breast Cancer Mother Heart Father of [place] Allergies Father Asthma Daughter Allergies Sister Allergies [...] Not Currently Drug use: Not Currently Comment: tom (more content not included)...[facility] 12-13-2023 Telephone encounter Note* Telephone Encounter - Sara Maria LPN - 12/13/2023 4:08 PM EDT Pt notified of results & all instructions, pt voiced understanding. Sara Maria LPN [facility]06-[facility] Miscellaneous Notes* Telephone Encounter - Sara Maria LPN - 12/13/2023 4:08 PM EDT Pt notified of results & all instructions, pt voiced understanding. Sara Maria LPN * Telephone Encounter - Susan Kerr APRN.ROSITA - 12/13/2023 3:52 PM EDT Can please call and let patient know that we received the labs and the CT results. His CT was negative for any blood clots. Lets go ahead and get him started on an antibiotic and a burst of prednisone. I sent doxycycline and prednisone to the pharmacy. Please review directions. His labs looked okay, except his potassium was just a little low. Please increase the potassium rich foods in the diet and recheck this in 1 week. Definitely let us know if there is no improvement or any worsening of his symptoms. Please go to the ER with any severe symptoms. * Telephone Encounter - Reynaldo Zarate LPN - 12/13/2023 1:09 PM EDT Order faxed. Will leave encounter open until results recieved. Reynaldo Zarate LPN * Telephone Encounter - Susan Kerr APRN.CNP - 12/13/2023 12:45 PM EDT Order placed. Please fax, as requested. * Telephone Encounter - Brenda Louis RN - 12/13/2023 12:29 PM EDT Dyana with [facility] hospital calls to request order be changed to CT A Chest with and without contrast. Couldn't find that order to pend. Requests order be faxed back to [phone]. Brenda Louis RN * Telephone Encounter - Reynaldo Zarate LPN - 12/13/2023 11:26 AM EDT Phoned [facility], order faxed. Pt can be scanned as soon as possible. Reynaldo Zarate LPN * Telephone Encounter - Susan Kerr APRN.CNP - 12/13/2023 11:01 AM EDT Pt schedule for stat CT at [place] at 3:00. Can we see if [facility] has anything sooner? Susan Kerr APRN.ROSITA documented in this encounterHolzer Hospital06-26-2024 Telephone encounter Note * Telephone Encounter - Susan Kerr APRN.CNP - 12/13/2023 3:52 PM EDT Can please call and let patient know that we received the labs and the CT results. His CT was negative for any blood clots. Lets go ahead and get him started on an antibiotic and a burst of prednisone. I sent doxycycline and prednisone to the pharmacy. Please review directions. His labs looked okay, except his potassium was just a little low. Please increase the potassium rich foods in the diet and recheck this in 1 week. Definitely let us know if there is no improvement or any worsening of his symptoms. Please go to the ER with any severe symptoms. [facility] Tele[facility] encounter Note* Telephone Encounter - Reynaldo Zarate LPN - 12/13/2023 1:09 PM EDT Order faxed. Will leave encounter open until results recieved. Reynaldo Zarate LPN [facility] Telephone encounter Note* Telephone Encounter - Susan Kerr APRN.ROSITA - 12/13/2023 12:45 PM EDT Order placed. Please fax, as requested. [facility] Tele[facility] Note* Telephone Encounter - Brenda Louis RN - 12/13/2023 12:29 PM EDT Dyana with [facility] hospital calls to request order be changed to CT A Chest with and without contrast. Couldn't find that order to pend. Requests order be faxed back to [phone]. Brenda Louis, RN [facility] Telephone encounter Note* Telephone Encounter - Reynaldo Zarate LPN - 12/13/2023 11:26 AM EDT Phoned [facility], order faxed. Pt can be scanned as soon as possible. Reynaldo Zarate LPN [facility] Telephone encounter Note* Telephone Encounter - Susan Kerr APRN.CNP - 12/13/2023 11:01 AM EDT Pt schedule for stat CT at [place] at 3:00. Can we see if [facility] has anything sooner? Susan Kerr APRN.CNP [facility] Instructions* Patient Instructions* Susan Kerr APRN.CNP - 12/13/2023 10:08 AM EDT Get stat CT documented in this encounterHolzer Hospital06-26-2024 NoteHNO ID: [id number] Author: SUSAN KERR APRN.CNP Service: ? Author Type: Nurse Practitioner Type: Progress Notes Filed: 12/13/2023 16:47 Note Text: This is a 68 year old male who presents today with: Patient presents with: Acute Visit: Shortness of breath, dizziness, cough, body aches x 1 week HISTORY OF PRESENT ILLNESS: Lazaro Garzon is a 68 year old male. Patient presents with: Acute Visit: Shortness of breath, dizziness, cough, body aches x 1 week Pt presents with trouble breathing, dizzy, aching, feeling rotten Started 1 week ago Couple days before started not feeling well, tried claritin and changing CPAP tubing driving up to [place], really hot, 'everything went black', pt lowered himself down to ground Proceeded to drive home, was nauseas, dizzy. Was able to make it home. Took off work Monday and rested Today is the worst in terms of shortness of breath and coughing Pt feels dizzy consistently throughout the day, pt 'feels not all the way there, foggy, when bad like walking on a boat' Pt noticed increased wheezing Having difficulty with activity due to shortness of breath Heat is making it worse Shortness of breath improves with rest Pt feels like he is breathing through water Increased non-productive cough, but notices break up of mucus in chest with coughing Has not needed albuterol inhaler consistently for years, now taking it 4-5 times daily Albuterol inhaler does help with some relief R sided chest and back pain 3/10, worse with deep breathing Chest is burning with deep breaths Back is sharp pain Pt has been off his eliquis and just restarted yesterday. Hx of PE X 2. Hx of pneumonia. Traveled to [place] a couple of weeks ago. No fevers/chills Body aches Dizziness Nausea and vomiting last week but nothing now Constipation, abdomen tenderness Wears CPAP at night Recent travel to [place] a few weeks ago Recently had pneumonia vaccine Pt has had similar feelings when he had pneumonia in the past PAST MEDICAL HISTORY: PAST MEDICAL HISTORY Diagnosis [...] Right 1988 LAPS SURG CHOLECYSTECTOMY W/CHOLANGIOGRAPHY 2004 [facility] - Dr. 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 EPIGASTRIC HERNIA,REDUC 07/19/2023 umbilical TONSILLECTOMY PRIMARY/SECONDARY Tonsillectomy ALLERGIES Sulfa (Sulfonamide Antibiotics) MEDICATIONS Current Outpatient Medications Medication Sig potassium chloride (K-TAB) 10 mEq tablet Take 2 tablets by mouth once daily. atomoxetine (STRATTERA) 100 mg capsule Take 1 capsule by mouth once daily. tamsulosin (FLOMAX) 0.4 mg esomeprazole (NEXIUM) 40 mg capsule Take 1 capsule by mouth two times a day before meals. losartan (COZAAR) 50 mg tablet Take 1 tablet by mouth once daily. albuterol HFA (PROAIR HFA) 90 mcg/actuation inhaler Inhale 2 Puffs as instructed every 4 hours as needed (FOR COUGH OR WHEEZE). apixaban (ELIQUIS) 5 mg tab(s) Take 1 tablet by mouth twice daily. atorvastatin (LIPITOR) 20 mg tablet Take 1 tablet by mouth daily at bedtime. For cholesterol. amLODIPine (NORVASC) 5 mg tablet Take 1 tablet by mouth once daily. testosterone (ANDROGEL PUMP) 20.25 mg/1.25 gram (1.62 %) transdermal gel APPLY 4 PUMPS TOPICALLY DAILY. oxyCODONE-acetaminophen 5-325 mg (PERCOCET) as needed. (Patient not taking: Reported on 07/31/2023) CPAP Requires replacement machine at same settings. Cholecalciferol, Vitamin D3, (VITAMIN D) 1,000 unit cap Take 1 capsule by mouth once daily. cyanocobalamin (VITAMIN B-12) 1,000 mcg tab Take 1,000 mcg by mouth once daily. (more content not included)...[facility] History of Present illness Narrative* Susan Kerr APRN.EDGE [employer]ER - 12/13/2023 9:36 AM EDT This is a 68 year old male who presents today with: Patient presents with: Acute Visit: Shortness of breath, dizziness, cough, body aches x 1 week HISTORY OF PRESENT ILLNESS: Lazaro Garzon is a 68 year old male. Patient presents with: Acute Visit: Shortness of breath, dizziness, cough, body aches x 1 week Pt presents with trouble breathing, dizzy, aching, feeling rotten Started 1 week ago Couple days before started not feeling well, tried claritin and changing CPAP tubing driving up to [place], really hot, 'everything went black', pt lowered himself down to ground Proceeded to drive home, was nauseas, dizzy. Was able to make it home. Took off work Monday and rested Today is the worst in terms of shortness of breath and coughing Pt feels dizzy consistently throughout the day, pt 'feels not all the way there, foggy, when bad like walking on a boat' Pt noticed increased wheezing Having difficulty with activity due to shortness of breath Heat is making it worse Shortness of breath improves with rest Pt feels like he is breathing through water Increased non-productive cough, but notices break up of mucus in chest with coughing Has not needed albuterol inhaler consistently for years, now taking it 4-5 times daily Albuterol inhaler does help with some relief R sided chest and back pain /10, worse with deep breathing Chest is burning with deep breaths Back is sharp pain Pt has been off his eliquis and just restarted yesterday. Hx of PE X 2. Hx of pneumonia. Traveled to [place] a couple of weeks ago. No fevers/chills Body aches Dizziness Nausea and vomiting last week but nothing now Constipation, abdomen tenderness Wears CPAP at night Recent travel to [place] a few weeks ago Recently had pneumonia vaccine Pt has had similar feelings when he had pneumonia in the past PAST MEDICAL HISTORY: PAST MEDICAL HISTORY Diagnosis [...] Right 1988 LAPS SURG CHOLECYSTECTOMY W/CHOLANGIOGRAPHY 2004 [facility] - Dr. 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 EPIGASTRIC HERNIA,REDUC 07/19/2023 umbilical TONSILLECTOMY PRIMARY/SECONDARY <AGE 12 Tonsillectomy ALLERGIES Sulfa (Sulfonamide Antibiotics) MEDICATIONS Current Outpatient Medications Medication Sig potassium chloride (K-TAB) 10 mEq tablet Take 2 tablets by mouth once daily. atomoxetine (STRATTERA) 100 mg capsule Take 1 capsule by mouth once daily. tamsulosin (FLOMAX) 0.4 mg esomeprazole (NEXIUM) 40 mg capsule Take 1 capsule by mouth two times a day before meals. losartan (COZAAR) 50 mg tablet Take 1 tablet by mouth once daily. albuterol HFA (PROAIR HFA) 90 mcg/actuation inhaler Inhale 2 Puffs as instructed every 4 hours as needed (FOR COUGH OR WHEEZE). apixaban (ELIQUIS) 5 mg tab(s) Take 1 tablet by mouth twice daily. atorvastatin (LIPITOR) 20 mg tablet Take 1 tablet by mouth daily at bedtime. For cholesterol. amLODIPine (NORVASC) 5 mg tablet Take 1 tablet by mouth once daily. testosterone (ANDROGEL PUMP) 20.25 mg/1.25 gram (1.62 %) transdermal gel APPLY 4 PUMPS TOPICALLY DAILY. oxyCODONE-acetaminophen 5-325 mg (PERCOCET) as needed. (Patient not taking: Reported on 07/31/2023) CPAP Requires replacement machine at same settings. [...] Mother Breast Cancer Mother Heart Father of [place] Allergies Father Asthma Daughter Allergies Sister Allergies [...] past not since 20 y/o EXAM: BP 140/86 Pulse 64 Temp 37.1 C (98.7 F) Resp 16 SpO2 97% PHYSICAL EXAM: General Appearance: Well appearing, alert, fatigued, in no acute distress, well- hydrated, well nourished.. Skin: Skin color, texture, turgor normal, no suspicious rashes or lesions, Diaphoretic. Head: Normocephalic, no masses, lesions, tenderness or abnormalities. Eyes: Anicteric sclera. Pupils are equally round and reactive to light. Extraocular movements are intact. . Ears: External ears normal, canals clear. Oropharynx: Lips, mucosa, and tongue normal, teeth and gums normal, oropharynx normal and Positive findings: mild oropharyngeal erythema. Neck: Supple, no adenopathy; thyroid symmetric, normal size, no bruits, Positive findings: L submandibular adenopathy. Lungs: Lungs clear to auscultation. No wheezing, rhonchi, rales. Positive findings: fine crackles RLL . Heart: RRR without murmur, gallop, or rubs. No ectopy. Extremities: No deformities, edema, skin discoloration, clubbing or cyanosis. Good capillary refill. . Musculoskeletal: No joint swelling, deformity, or tenderness. Neurologic: Gait normal. ASSESSMENT/PLAN: 1. Chronic cough - ICD9: 786.2, ICD10: R05.3 (primary diagnosis) - Doxycycline 100 mg BID x 10 days - Prednisone 40 mg daily x 5 days - COMPLETE BLOOD COUNT AND DIFFERENTIAL - COMPREHENSIVE METABOLIC PANEL - instructed patient to go to the ER if severe symptoms occur 2. Chest pain on breathing - ICD9: 786.52, ICD10: R07.1 Will go ahead and get ct of chest to r/o PE since recently off eliquis, recent travel, and hx of PEX 2. If CT negative for PE, will go ahead and cover for respiratory infection. - CT CHEST W IVCON PE - CT CHEST W IVCON PE - IV CONTRAST (RADIOLOGY PROCEDURE) - Instructed patient to go to the ER if severe symptoms occur Discussed treatment plan and patient voices understanding. Patient's questions answered appropriately. Medications and potential side effects were discussed and patient voices understanding. Return to the office as scheduled or as needed for worsening/no improvement. Susan Kerr APRN.ROSITA The patient indicates understanding of these issues and agrees with the plan. documented in this encounterHol[facility] Telephone encounter Note * Telephone Encounter - Eleonora Chavez LPN - 12/01/2023 11:49 AM EDT Patient MyChart message requesting the following refill Refill(s) Requested: Requested Prescriptions Pending Prescriptions Disp Refills potassium chloride (K-TAB) 10 mEq tablet 180 tablet 1 Sig: Take 2 tablets by mouth once daily. ALLERGIES Allergen Reactions Sulfa (Sulfonamide * Rash (home) [phone] (cell) Last Office Visit Date: 11/29/2023 Last [facility] [place] [facility] Visit: 10/25/2023 Future Appointment: 12/22/2023 The patients preferred pharmacy has been captured for this encounter? yes Request is for script(s) to be escript to pharmacy. Eleonora Chavez LPN [facility]06-14-[facility] Miscellaneous Notes* Telephone Encounter - Eleonora Chavez LPN - 12/01/2023 11:49 AM EDT Patient MyChart message requesting the following refill Refill(s) Requested: Requested Prescriptions Pending Prescriptions Disp Refills potassium chloride (K-TAB) 10 mEq tablet 180 tablet 1 Sig: Take 2 tablets by mouth once daily. ALLERGIES Allergen Reactions Sulfa (Sulfonamide * Rash (home) [phone] (cell) Last Office Visit Date: 11/29/2023 Last [facility] [place] [facility] Visit: 10/25/2023 Future Appointment: 12/22/2023 The patients preferred pharmacy has been captured for this encounter? yes Request is for script(s) to be escript to pharmacy. Eleonora Chavez LPN documented in this encounterHolzer [facility]06-12-[facility]24 NoteHNO ID: [id number] Author: JAGJIT CHEEMA MD Service: ? Author Type: Physician Type: Progress Notes Filed: 11/29/2023 15:04 Note Text: Patient presents with: Follow Up HPI: Patient presents today for office visit for follow up. ADD: Current Treatment: Strattera Feels treatment is working well: Yes. Much better with focus and concentration. Actually has helped with some panic sensations. More energy. Weight loss: No. Insomnia: No. GASTROENTEROLOGY complaints: No. Tremor: No. Mood disorder: No. Chest pain/Palpitations: No. Note was copied and pasted, without alteration from previous: Could not connect connect via zoom. Counselor thinks he has ADD. He has issues with focus. Has to work with talking with people. Feels like his attention is often all over the place and affects his emotions Was on wellbutrin. Also on celexa in the past. He is reluctant to try stimulants. MEDICATIONS: Current Outpatient Medications Medication Sig atomoxetine (STRATTERA) 40 mg capsule Take one cap po q day for one week and then increase to 80 mg a day tamsulosin (FLOMAX) 0.4 mg esomeprazole (NEXIUM) 40 mg capsule Take 1 capsule by mouth two times a day before meals. losartan (COZAAR) 50 mg tablet Take 1 tablet by mouth once daily. albuterol HFA (PROAIR [...] PUMPS TOPICALLY DAILY. oxyCODONE-acetaminophen 5-325 mg (PERCOCET) as needed. (Patient not taking: Reported on 07/31/2023) CPAP Requires replacement machine at same settings. [...] Right 1988 LAPS SURG CHOLECYSTECTOMY W/CHOLANGIOGRAPHY 2004 [facility] - Dr. Bales OPEN REPAIR OF ROTATOR CUFF ACUTE Rotator cuff repair PERCUTANEOUS CORONARY INTERVENTION 2007 stent to LAD REPAIR EPIGASTRIC HERNIA,REDUC 07/19/2023 umbilical TONSILLECTOMY PRIMARY/SECONDARY Tonsillectomy FAMILY HISTORY Problem Relation Age of Onset Hypertension Mother Heart Mother Stroke Mother Allergies Mother Breast Cancer Mother Heart Father of [place] Allergies Father Asthma Daughter Allergies Sister Allergies [...] and social history today. REVIEW OF SYSTEMS Has completed his primary substance abuse counselor (more content not included)...[facility]06-12-2024 History of Present illness Narrative* Jagjit Cheema MD - 11/29/2023 1:55 PM EDT Patient presents with: Follow Up HPI: Patient presents today for office visit for follow up. ADD: Current Treatment: Strattera Feels treatment is working well: Yes. Much better with focus and concentration. Actually has helpedwith some panic sensations. More energy. Weight loss: No. Insomnia: No. GASTROENTEROLOGY complaints: No. Tremor: No. Mood disorder: No. Chest pain/Palpitations: No. Note was copied and pasted, without alteration from previous: Could not connect connect via zoom. Counselor thinks he has ADD. He has issues with focus. Has to work with talking with people. Feels like his attention is often all over the place and affects his emotions Was on wellbutrin. Also on celexa in the past. He is reluctant to try stimulants. MEDICATIONS: Current Outpatient Medications Medication Sig atomoxetine (STRATTERA) 40 mg capsule Take one cap po q day for one week and then increase to 80 mga day tamsulosin (FLOMAX) 0.4 mg esomeprazole (NEXIUM) 40 mg capsule Take 1 capsule by mouth two times a day before meals. losartan (COZAAR) 50 mg tablet Take 1 tablet by mouth once daily. albuterol HFA (PROAIR [...] PUMPS TOPICALLY DAILY. oxyCODONE-acetaminophen 5-325 mg (PERCOCET) as needed. (Patient not taking: Reported on 07/31/2023) CPAP Requires replacement machine at same settings. [...] Right 1988 LAPS SURG CHOLECYSTECTOMY W/CHOLANGIOGRAPHY 2004 [facility] - Dr. Bales OPEN REPAIR OF ROTATOR CUFF ACUTE Rotator cuff repair PERCUTANEOUS CORONARY INTERVENTION 2007 stent to LAD REPAIR EPIGASTRIC HERNIA,REDUC 07/19/2023 umbilical TONSILLECTOMY PRIMARY/SECONDARY <AGE 12 Tonsillectomy FAMILY HISTORY Problem Relation Age of Onset Hypertension Mother Heart Mother Stroke Mother Allergies Mother Breast Cancer Mother Heart Father of [place] Allergies Father Asthma Daughter Allergies Sister Allergies [...] past medical history, surgical history, family history andsocial history today. REVIEW OF SYSTEMS Has completed his counseling and has done well. All other reviewed and negative other than HPI. HEALTH MAINTENANCE: Reviewed health maintenance issues today and recommended the following in detail. BP Controlled (<130/80) Never done DTaP,Tdap,Td Vaccine(1 - Tdap) Never done Shingrix Vaccine(1 of 2) Never done Pneumococcal Vaccine: 65+(2 of 2 - PCV) due on 2022 [facility]al [facility] Screening Never done Covid-19 Vaccine(2022- season) due on 11/24/2023 VITALS: BP 136/84 Pulse 78 Wt (!) 147.9 kg (326 lb) SpO2 98% BMI 38.66 kg/m Last 4 Encounter Wt Readings: Date: Wt: 09/05/2023 151 kg (333 lb) 07/26/2023 149.7 kg (330 lb) 07/05/2023 154.7 kg (341 lb) 06/30/2023 154.9 kg (341 lb 9.6 oz) PHYSICAL EXAMINATION: General appearance: Well appearing, [...] joint swelling, deformity, or tenderness ASSESSMENT/PLAN: 1. ADHD (attention deficit hyperactivity disorder), combined type - ICD9: 314.01, ICD10: F90.2 (primary diagnosis) - Discussed risks and benefits of new medication with the patient. Advised them to call if any sideeffects or questions. Increase dose. - ATOMOXETINE 100 MG CAPSULE 2. Need for vaccination - ICD9: V05.9, ICD10: Z23 - PNEUMOCOCCAL VACCINE, 20 VALENT (PREVNAR 20) Jagjit Cheema MD documented in this encounterHolzer [facility]05-08-[facility]24 History of Present illness Narrative* Jagjit Cheema MD - 10/25/2023 1:00 PM EDT Patient presents with: Follow Up HPI:This Team Access Model visit is a phone encounter. It required patient- provider interaction forthe medical decision making as documented below. Patient has elected to have a visit through distance medicine I have communicated my name and active licensure. The patient's identity and physical location wereverified at the time of this visit. Either the patient or their legal utility sales representative has been informed of the risks and benefits of -- and alternatives to -- treatment through a remote evaluation andconsents to proceed with the evaluation remotely. Could not connect connect via zoom. Counselor thinks he has ADD. He has issues with focus. Has to work with talking with people. Feels like his attention is often all over the place and affects his emotions Was on wellbutrin. Also on celexa in the past. He is reluctant to try stimulants. MEDICATIONS: Current Outpatient Medications Medication Sig tamsulosin (FLOMAX) 0.4 mg esomeprazole (NEXIUM) 40 mg capsule Take 1 capsule by mouth two times a day before meals. losartan (COZAAR) 50 mg tablet Take 1 tablet by mouth once daily. albuterol HFA (PROAIR [...] PUMPS TOPICALLY DAILY. oxyCODONE-acetaminophen 5-325 mg (PERCOCET) as needed. (Patient not taking: Reported on 07/31/2023) CPAP Requires replacement machine at same settings. [...] Right 1988 LAPS SURG CHOLECYSTECTOMY W/CHOLANGIOGRAPHY 2004 [facility] - Dr. 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 EPIGASTRIC HERNIA,REDUC 07/19/2023 umbilical TONSILLECTOMY PRIMARY/SECONDARY <AGE 12 Tonsillectomy FAMILY HISTORY Problem Relation Age of Onset Hypertension Mother Heart Mother Stroke Mother Allergies Mother Breast Cancer Mother Heart Father of [place] Allergies Father Asthma Daughter Allergies Sister Allergies Brother Allergies Daughter Social History Tobacco Use Smoking status: Former Packs/day: 2.00 Years: 5.00 Additional pack years: 0.00 Total pack years: 10.00 Types: Cigarettes Quit date: 02/08/1987 Years since quittin.7 Smokeless tobacco: Former Types: Chew Quit date: 12/03/2017 Tobacco comments: patient smoked for a few months in 2006 Quit chew June 2022 Vaping Use Vaping Use: Never used Substance Use Topics Alcohol use: Not Currently Drug use: Not Currently Comment: marijuana in past not since 20 y/o Reviewed current medications, allergies, past medical history, surgical history, family history andsocial history today. REVIEW OF SYSTEMS All other reviewed and negative other than HPI. VITALS: There were no vitals taken for this visit. Last 4 Encounter Wt Readings: Date: Wt: 09/05/2023 151 kg (333 lb) 07/26/2023 149.7 kg (330 lb) 07/05/2023 154.7 kg (341 lb) 06/30/2023 154.9 kg (341 lb 9.6 oz) PHYSICAL EXAMINATION: Patient is alert and oriented during visit. Answers appropriately. ASSESSMENT/PLAN: 1. ADHD (attention deficit hyperactivity disorder), combined type - ICD9: 314.01, ICD10: F90.2 - Discussed risks and benefits of new medication with the patient. Advised them to call if any sideeffects or questions. - gradually increase dose. - ATOMOXETINE 40 MG CAPSULE Jagjit Cheema MD RTO in one month I spent 15 minutes in the visit, with more than 50% of the total vizh-sg-pugy time of the visit in counseling / coordination of care. documented in this encounterHolzer Hospital03-21-2024 Miscellaneous Notes* Telephone Encounter - Jagjit Cheema MD - 09/07/2023 7:57 AM EDT Labs are stable other than sugar being up. Recheck A1c. documented in this encounterHolzer Hospital03-19-2024 History of Present illness Narrative* Jagjit Cheema MD - 09/05/2023 4:04 PM EDT Patient presents with: 6 Month Exam HPI: Patient presents today for office visit for follow up. Not feeling well for several weeks. Mentions extreme fatigue. Feels achy all over. Non-productive cough with burning sensation in chest. Sinuses are acting up. Ongoing X weeks. HTN: Current medications: Losartan 50 mg daily Amlodipine 5 mg daily Does not monitor BP Denies chest pain Denies shortness of breath Denies headaches and dizziness Denies palpitations or syncope Denies edema HLD: No myalgias Continues on Esomeprazole Symptoms controlled Has had some constipation since his hernia repair. Just had colonoscopy in 2022. Discussed stools softener. No blo0dy or black stools. Still seeing cardiology. No bleeding issues. Emotionally is doing well. Seeing a counselor. Follows with urology Using cpap. Benefiting from its use. MEDICATIONS: Current Outpatient Medications Medication Sig tamsulosin (FLOMAX) 0.4 mg esomeprazole (NEXIUM) 40 mg capsule Take 1 capsule by mouth two times a day before meals. losartan (COZAAR) 50 mg tablet Take 1 tablet by mouth once daily. albuterol HFA (PROAIR [...] transdermal gel APPLY 4 PUMPS TOPICALLY DAILY. CPAP Requires replacement machine at same settings. Cholecalciferol, Vitamin D3, (VITAMIN D) 1,000 unit cap Take 1 capsule by mouth once daily. cyanocobalamin (VITAMIN B-12) 1,000 mcg tab Take 1,000 mcg by mouth once daily. MULTIVITAMIN TAB Take one(1) tablet daily BY MOUTH. oxyCODONE-acetaminophen 5-325 mg (PERCOCET) as needed. (Patient not taking: Reported on 07/31/2023) No current facility-administered medications for this visit. [...] Right 1988 LAPS SURG CHOLECYSTECTOMY W/CHOLANGIOGRAPHY 2004 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 EPIGASTRIC HERNIA,REDUC 07/19/2023 umbilical TONSILLECTOMY PRIMARY/SECONDARY <AGE 12 Tonsillectomy FAMILY HISTORY Problem Relation Age of Onset Hypertension Mother Heart Mother Stroke Mother Allergies Mother Breast Cancer Mother Heart Father of [place] Allergies Father Asthma Daughter Allergies Sister Allergies Brother Allergies Daughter Social History Tobacco Use Smoking status: Former Packs/day: 2.00 Years: 5.00 Additional pack years: 0.00 Total pack years: 10.00 Types: Cigarettes Quit date: 02/08/1987 Years since quittin.5 Smokeless tobacco: Former Types: Chew Quit date: 12/03/2017 Tobacco comments: patient smoked for a few months in 2006 Quit chew June 2022 Vaping Use Vaping Use: Never used Substance Use Topics Alcohol use: Not Currently Drug use: Not Currently Comment: marijuana in past not since 20 y/o Reviewed current medications, allergies, past medical history, surgical history, family history andsocial history today. REVIEW OF SYSTEMS All other reviewed and negative other than HPI. HEALTH MAINTENANCE: Reviewed health maintenance issues today and recommended the following in detail. BP Controlled (<130/80) Never done LDL Cholesterol due on 09/27/2023 VITALS: BP 138/68 Pulse 72 Ht 195.6 cm (6' 5) Wt (!) 151 kg (333 lb) SpO2 96% BMI 39.49 kg/m Last 4 Encounter Wt Readings: Date: Wt: 07/26/2023 149.7 kg (330 lb) 07/05/2023 154.7 kg (341 lb) 06/30/2023 154.9 kg (341 lb 9.6 oz) 06/27/2023 156.5 kg (345 lb) PHYSICAL EXAMINATION: General appearance: Well appearing, [...] normal, oropharynx normal Neck: Negative findings: no adenopath Lungs: Lungs clear to auscultation. No wheezing, rhonchi, rales Heart: RRR without murmur, gallop, or rubs. No ectopy Abdomen: Normal abdominal exam, Abdomen soft, non-tender. Bowel sounds normal. No masses, organomegaly Extremities: No deformities, edema, skin discoloration, clubbing or cyanosis. Good capillary refill. ASSESSMENT/PLAN: 1. Bacterial sinusitis - ICD9: 473.9, 041.9, ICD10: J32.9, B96.89 (primary diagnosis) - Discussed risks and benefits of new medication with the patient. Advised them to call if any sideeffects or questions. Red flags for re-assessment reviewed with patient in detail. Call if symptoms worsen at all or if not better in one to two weeks Reviewed diagnosis and treatment options in detail. Questions were answered. Patient expressed understanding of treatment plan. - AMOXICILLIN 875 MG TABLET 2. Testosterone deficiency - ICD9: 259.9, ICD10: E34.9 - check labs with fatigue. Gets managed normally by urology - TESTOSTERONE TOTAL 3. Coronary artery disease 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 angina pectoris- ICD9: 414.01, ICD10: I25.10 - continue to see cardiology. 4. Atrial flutter, unspecified type (HCC) - ICD9: 427.32, ICD10: I48.92 -stable. Continue meds. 5. Hyperlipidemia, unspecified hyperlipidemia type - ICD9: 272.4, ICD10: E78.5 - Controlled - Continue current medications - LIPID PANEL BASIC 6. Sleep apnea, unspecified type - ICD9: 780.57, ICD10: G47.30 - continue cpap 7. Uncomplicated asthma, unspecified asthma severity, unspecified whether persistent - ICD9: 493.90, ICD10: J45.909 - reassess if no improvement. 8. Gastric intestinal metaplasia - ICD9: 537.89, ICD10: K31.A0 - stable. 9. Polyarthritis - ICD9: 716.50, ICD10: M13.0 - stable. 10. Spinal stenosis of lumbar region with neurogenic claudication - ICD9: 724.03, ICD10: M48.062 - stable. 11. History of pulmonary embolism - ICD9: V12.55, ICD10: Z86.711 - stable. 12. Fatigue, unspecified type - ICD9: 780.79, ICD10: R53.83 - ? Related to recently not feeling well. Call if symptoms worsen at all or if not better in one totwo weeks - CBC + DIFF - COMP METABOLIC PANEL - TESTOSTERONE TOTAL 13. Acute constipation - ICD9: 564.00, ICD10: K59.00 - add fluids and fiber. Is up to date on scopes. Call if symptoms worsen at all or if not better in one to two weeks - TSH BLD Jagjit Cheema MD documented in this encounterHolzer Hospital03-18-2024 Miscellaneous Notes* Telephone Encounter - Beverley Cruz LPN - 09/04/2023 4:35 PM EDT Patient has been identified by name and date of : Yes, Patient phones for refill(s): Requested Prescriptions Pending Prescriptions Disp Refills esomeprazole (NEXIUM) 40 mg capsule 180 capsule 1 Sig: Take 1 capsule by mouth two times a day before meals. Date of last office visit in primary care: 07/26/2023 Date of next office visit in primary care: 09/05/2023 Please advise. Thank you. Beverley Cruz LPN. documented in this encounterHolzer Hospital02-07-2024 History of Past illness Narrative* Problem Noted Date Diagnosed Date Resolved Date Acute prostatitis 07/26/2023 07/26/2023 07/26/2023 Confusional state 07/26/2023 07/26/2023 07/26/2023 Disorder involving thrombocytopenia 07/26/202307/2607/26/2023 Fever 07/26/2023 07/26/2023 07/26/2023 Headache, unspecified 07/26/2023 07/26/20232023 No response to treatment 07/26/2023 07/26/202312/2023 Otitis externa 07/26/2023 07/26/2023 07/26/2023 Postprocedural state 07/26/2023 07/26/2023 024 Status post coronary artery balloon dilation 07/26/2023 07/26/2023 Obesity, Class III, BMI >= 40 07/16/2023 07/26/2023 Morbid obesity 07/05/2023 07/26/2023 Last Assessment & Plan: Assessment: Body mass index is 40.44 kg/m . Peripheral neuropathy 07/05/20232023 Last Assessment & Plan: Assessment: controlled on rx Impotence of organic origin 11/05/2014 07/26/2023 Low testosterone 12/25/2013 07/26/2023 Fatigue 10/30/2013 07/26/2023 07/26/2023 Pulmonary embolism 10/11/2013 Encounter for long-term (cur rent) use of insulin 12/17/2012 07/26/2023 07/26/2023 Abnormal cardiovascular stress test 08/21/201207/2607/26/2023 Chest pain 07/10/2012 07/26/2023 07/26/2023 Essential hypertension, benign 03/20/2012 07/26/2023 Last Assessment & Plan: Assessment: controlled on rx Last 14 BP Last 14 Encounter BP Readings: Date: BP: 07/05/2023 144/72 06/30/2023 140/78 06/27/2023 147/72 06/14/2023 162/82 04/03/2023 128/66 03/13/2023 132/80 01/23/2023 138/70 12/19/2022 138/68 12/15/2022 124/68 12/14/2022 130/60 12/01/2022 118/67 12/01/2022 149/73 10/25/2022 130/66 09/22/2022 146/62 Shortness of breath 02/08/2007 07/13/19 19 Palpitations 09/30/2005 07/13/2018 documented as of this encounter (statuses as of 09/05/2023) [facility] of Past illness Narrative* Problem Noted Date Diagnosed Date Resolved Date Acute prostatitis 07/26/2023 07/26/2023 07/26/2023 Confusional state 07/26/2023 07/26/2023 07/26/2023 Disorder involving thrombocytopenia 07/26/202307/2607/26/2023 Fever 07/26/2023 07/26/2023 07/26/2023 Headache, unspecified 07/26/2023 07/26/20232023 No response to treatment 07/26/2023 07/26/202312/2023 Otitis externa 07/26/2023 07/26/2023 07/26/2023 Postprocedural state 07/26/2023 07/26/2023 024 Status post coronary artery balloon dilation 07/26/2023 07/26/2023 Obesity, Class III, BMI >= 40 07/16/2023 07/26/2023 Morbid obesity 07/05/2023 07/26/2023 Last Assessment & Plan: Assessment: Body mass index is 40.44 kg/m . Peripheral neuropathy 07/05/20232023 Last Assessment & Plan: Assessment: controlled on rx Impotence of organic origin 11/05/2014 07/26/2023 Low testosterone 12/25/2013 07/26/2023 Fatigue 10/30/2013 07/26/2023 07/26/2023 Pulmonary embolism 10/11/2013 Encounter for long-term (cur rent) use of insulin 12/17/2012 07/26/2023 07/26/2023 Abnormal cardiovascular stress test 08/21/201207/2607/26/2023 Chest pain 07/10/2012 07/26/2023 07/26/2023 Essential hypertension, benign 03/20/2012 07/26/2023 Last Assessment & Plan: Assessment: controlled on rx Last 14 BP Last 14 Encounter BP Readings: Date: BP: 07/05/2023 144/72 06/30/2023 140/78 06/27/2023 147/72 06/14/2023 162/82 04/03/2023 128/66 03/13/2023 132/80 01/23/2023 138/70 12/19/2022 138/68 12/15/2022 124/68 12/14/2022 130/60 12/01/2022 118/67 12/01/2022 149/73 10/25/2022 130/66 09/22/2022 146/62 Shortness of breath 02/08/2007 07/13/19 19 Palpitations 09/30/2005 07/13/2018 documented as of this encounter (statuses as of 09/06/2023) [facility] of Past illness Narrative* Problem Noted Date Diagnosed Date Resolved Date Acute prostatitis 07/26/2023 07/26/2023 07/26/2023 Confusional state 07/26/2023 07/26/2023 07/26/2023 Disorder involving thrombocytopenia 07/26/202307/2607/26/2023 Fever 07/26/2023 07/26/2023 07/26/2023 Headache, unspecified 07/26/2023 07/26/20232023 No response to treatment 07/26/2023 07/26/202312/2023 Otitis externa 07/26/2023 07/26/2023 07/26/2023 Postprocedural state 07/26/2023 07/26/2023 024 Status post coronary artery balloon dilation 07/26/2023 07/26/2023 Obesity, Class III, BMI >= 40 07/16/2023 07/26/2023 Morbid obesity 07/05/2023 07/26/2023 Last Assessment & Plan: Assessment: Body mass index is 40.44 kg/m . Peripheral neuropathy 07/05/20232023 Last Assessment & Plan: Assessment: controlled on rx Impotence of organic origin 11/05/2014 07/26/2023 Low testosterone 12/25/2013 07/26/2023 Fatigue 10/30/2013 07/26/2023 07/26/2023 Pulmonary embolism 10/11/2013 Encounter for long-term (cur rent) use of insulin 12/17/2012 07/26/2023 07/26/2023 Abnormal cardiovascular stress test 08/21/201207/2607/26/2023 Chest pain 07/10/2012 07/26/2023 07/26/2023 Essential hypertension, benign 03/20/2012 07/26/2023 Last Assessment & Plan: Assessment: controlled on rx Last 14 BP Last 14 Encounter BP Readings: Date: BP: 07/05/2023 144/72 06/30/2023 140/78 06/27/2023 147/72 06/14/2023 162/82 04/03/2023 128/66 03/13/2023 132/80 01/23/2023 138/70 12/19/2022 138/68 12/15/2022 124/68 12/14/2022 130/60 12/01/2022 118/67 12/01/2022 149/73 10/25/2022 130/66 09/22/2022 146/62 Shortness of breath 02/08/2007 07/13/19 19 Palpitations 09/30/2005 07/13/2018 documented as of this encounter (statuses as of 09/07/2023) [facility] NoteHNO ID: [id number] Author: MISTY JACKSON APRN.TERMITE HELPER Service: Anesthesiology Author Type: Nurse Veterans Contact Representative Type: Anesthesia Procedure Notes Filed: 07/19/2023 09:22 Note Text: ANESTHESIOLOGY PROCEDURE NOTE Airway General Information Procedure Start Time/Medication Administration: 07/19/2023 9:07 AM Patient location during procedure: OR Timeout Performed Pre-procedure: timeout performed Consent Obtained: Yes 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 TERMITE HELPER: Misty Jackson APRN.TERMITE HELPER Performed by: TERMITE HELPER Indications and Patient Condition Indications for airway management: anesthesia Preoxygenated: yes anesthesia circuit Patient position: sniffing Cricoid Pressure: No Difficult Mask: No Final Airway Details Final airway type: endotracheal airway Final Endotracheal Airway: ETT Cuffed: yes Successful intubation technique: direct laryngoscopy Devices used: intubating stylet Endotracheal tube insertion site: oral Blade: Karlo Blade size: #4 ETT size (mm): 8.0 Measured from: lips Placement verified by: chest auscultation and capnometry Cormack-Lehane Classification: grade I - full view of glottis Number of attempts at approach: 1 Comments Head sniff with doubled pillow and doubled bath blanket SIGNATURE: Misty Jackson APRN.CRNA PATIENT NAME: Lazaro Garzon DATE: July 19, 2023 TIME: 9:21 AM CSN: [id number] Telephone encounter Note* Telephone Encounter - Omaira Gallegos - 06/30/2023 11:00 AM EST 07/19/2023 UMBILICAL HERNIA REPAIR FORD [facility] Miscellaneous Notes* Telephone Encounter - Omaira Gallegos - 06/30/2023 11:00 AM EST 07/19/2023 [facility]ERNIA REPAIR FORD documented in this encounterHolzer Hospital12-21-2023 Miscellaneous Notes* Telephone Encounter - Beverley Cruz LPN - 06/08/2023 8:28 AM EST Patient has been identified by name and [...] you. Beverley Cruz LPN. documented in this encounterHolzer Hospital12-04-2023 Discharge summary Author Vivian Mcintyre [facility] May 22, 2023 1:02pm Note Date/Time May 22, 2023 1 :02pm [facility] Physical Therapy [facility] [address] [place] [address] / REHABILITATION SERVICES DISCHARGE SUMMARY MR#: [id number] Acct: [id number] Name: LAZARO GARZON Rep #: [id number] : 1955 67 From: Vivian Mcintyre PT, Cert. MDT Referring Dr.: OUT OF TOWN DOCTOR Status: REG RCR Insurance: MEDICARE PART A B ANTH Discharge Summary D/C summary: It has been my pleasure to treat LAZARO GARZON referred by ARVIND TELLEZ, with the diagnosis of PARTIAL TEAR L ACHILLES for a total of 6 visit(s). Discharge Date: 05/22/23 Please see the following information for a summary of their discharge status. Subjective Subjective: Patient reports he has no pain or issues with his ankle or heel. States he is 100% and would like to stop therapy and get back to work. Pain L ankle: Pain Intensity (Out of 10): 0 Objective Objective/Function: Patient reports he is 100% in regards to his Achilles and would like to be done. PT came and spoke with patient and educated him on contacting his Dr for return to work. Goals Goal 1:: PATIENT WILL HAVE INCREASED L ANKLE AROM BY 5 DEG X 4 DIRECTIONS TO EASE ADL'S Goal 2:: PATIENT WILL HAVE INCREASED L ANKLE STRENGTH BY 1/2 MUSCLE GRADE ALL PLANES. Goal 3:: PATIENT WILL DEMO STS X 10 IN 30 SEC WITHOUT UE ASSIST TO DEMONSTRATE IMPROVED FUNCTIONAL STRENGTH Goal 4:: PATIENT WILL DEMO INDEP GAIT ON LEVEL SURFACES WITHOUT DEVIATION, GOOD STRIDE LENGHT, GOOD CADANCE AND NO PAIN IN L ANKLE UNLIMITED DISTANCES WITH TUG TIME LESS THAN 10 SEC. Goal 5:: PATIENT WILL BE ABLE TO GO UP AND DOWN STEPS RECIPRICALLY WITH ONE HR WITHOUT DEVIATION Goal 6:: PATIENT WILL BE INDEP WITH A HEP FOR CONTINUED IMPROVEMENT ONCE FORMAL PHYSICAL THERPAY CONCLUDES. Plan Plan: WILL D/C AT PATIENT REQUEST. CAUTIONED PATIENT ABOUT RISK OF RE- OCCURANCEWITH STOPPING PT TOO SOON. PATIENT CANCELLED PT BENI'T TODAY AND PLANS TO CONTACT PHYSICIAN FOR RELEASE TO RETURN TO WORK. D/C Information d/c sentence: If there are questions or concerns regarding this patient's physical therapy, please feel free to call me at [phone]. Thank you for the referral of thispatient. Sincerely, Vivian Mcintyre PT, Cert MDT Balance/Gait/Functional tests Balance/Special Test Scores Lower Extremity Functional Score: 76 <Electronically signed by Vivian Mcintyre PT Cert. MDT> 05/22/23 1302 CC: Dr. Jagjit Cheema MD; ARVIND EXTEN ~ SIVAN Signed [facility] Work Phone: 1(749) 356-923110-16-2023 History of Present illness Narrative* Shannon Vázquez RT(R) - 04/03/2023 10:40 AM EDT Radiology Service Progress Note PATIENT NAME: Lazaro Garzon DATE OF SERVICE: April 03, 2023 TIME: 10:58 AM PATIENT IDENTITY VERIFICATION COMPLETED USING TWO (2) IDENTIFIERS: Name and Date of confirmedby patient verbally. FALL SCREENING: Has the patient had 2 falls in the last year or 1 fall with injury or currently using an Ambulatory Assistive Device (Walker, Cane, Wheelchair, Crutches, etc.)? Yes, Patient High Riskfor Falls What interventions were put in place to prevent falls during this visit? Instructed Patient to Callfor Help if Needed, Offered Assistance with Transfers/Clothing, and Increased Observations by Caregivers PATIENT GENDER DATA: Male PATIENT RELEVANT IMPLANT DATA REVIEWED: Yes RADIOLOGY DEPARTMENT: General X-ray: Exam(s) Completed: Lower Extremity X- Ray(s): Foot, Left PERIPHERAL IV DATA: Not applicable SIGNED BY: RT Dez(Filippo) April 03, 2023 10:58 AM documented in this encounterHolzer Hospital08-07-2023 History of Present illness Narrative* Jagjit Cheema MD - 01/23/2023 4:53 PM EDT Patient presents with: Follow Up HPI: Patient [...] Right 1988 LAPS SURG CHOLECYSTECTOMY W/CHOLANGIOGRAPHY 2004 [facility] - Dr. Bales OPEN REPAIR OF ROTATOR CUFF ACUTE Rotator cuff repair PERCUTANEOUS CORONARY INTERVENTION 2006 stent to LAD TONSILLECTOMY PRIMARY/SECONDARY <AGE 12 Tonsillectomy FAMILY HISTORY Problem Relation Age of Onset Hypertension Mother Heart Mother Stroke Mother Allergies Mother Breast Cancer Mother Heart Father of [place] Allergies Father Asthma Daughter Allergies Sister Allergies [...] past medical history, surgical history, family history andsocial history today. REVIEW OF SYSTEMS No chest pain or edema. All other reviewed and negative other than HPI. VITALS: BP 138/70 Pulse 64 Ht 195.6 cm (6' 5) Wt (!) 149 kg (328 lb 6.4 [...] MG TABLET 6. Coronary artery disease 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 angina pectoris- ICD9: 414.01, ICD10: I25.10 - stable. Jagjit Cheema MD documented in this encounterHolzer Hospital07-18-2023 Miscellaneous Notes* Telephone Encounter - Vee Weinberg LPCC - 01/03/2023 2:36 PM EDT Behavioral Health Social Work Progress Note Patient identified for [facility] from: PCP Reason for referral: Resources Behavioral Health Resources: Psychology - talk therapy [facility] encounter type: Telephone Encounter Attempts to Outreach: 1 attempt Referral made: Psychology - Internal, Psychology - External Psychology-Internal referral type: Therapy Psychology-External referral type: Therapy Patient Discharged?: No Phone call placed today that went to [employer]. Left my contact information and brief nature of call. Initial outreach also completed via [employer] sending list of in network providers with insurance. AARON Zuñiga-S January 03, 2023 documented in this encounterHolzer Hospital07-06-2023 Miscellaneous Notes* Telephone Encounter - Beverley Cruz LPN - 12/22/2022 9:00 AM EDT Patient has been identified by name and [...] you. Beverley Cruz LPN documented in this encounterHolzer Hospital07-03-2023 History of Present illness Narrative* Jagjit Cheema MD - 12/19/2022 3:40 PM EDT Patient presents with: Hospital F/U HPI: Patient [...] showed mild hypokalemia and leukocytosis. Went back [facility] on 12/15/22 with a 104 temp. [...] Right 1988 LAPS SURG CHOLECYSTECTOMY W/CHOLANGIOGRAPHY 2004 [facility] - Dr. Bales OPEN REPAIR OF ROTATOR CUFF ACUTE Rotator cuff repair PERCUTANEOUS CORONARY INTERVENTION 2006 stent to LAD TONSILLECTOMY PRIMARY/SECONDARY <AGE 12 Tonsillectomy FAMILY HISTORY Problem Relation Age of Onset Hypertension Mother Heart Mother Stroke Mother Allergies Mother Breast Cancer Mother Heart Father of [place] Allergies Father Asthma Daughter Allergies Sister Allergies [...] past medical history, surgical history, family history andsocial history today. REVIEW OF SYSTEMS All other reviewed and negative other than HPI. VITALS: BP 138/68 Pulse 64 Ht 195.6 cm (6' 5) Wt (!) 149.4 kg (329 lb 6.4 oz) SpO2 97% BMI 39.06kg/m Last 4 Encounter Wt Readings: Date: Wt: [...] site unspecified - ICD9: 599.0, ICD10: N39.0 (primarydiagnosis) - continue cipro. Finish out the entire [...] 288.60, ICD10: D72.829 - CBC + DIFF Jagjit Cheema MD documented in this encounterHolzer Hospital06-30-2023 Discharge summary Author Nahum Dias [facility] December 16, 2022 1:25am Note Date/Time December 15, 2022 7:31 pm [facility] Medical Records Department [address] [place] [address] Emergency Department Summary 12/15/22 MR#: [id number] Acct: [id number] Name: LAZARO GARZON Rep #:[id number] : 1955 67 From: Nahum Bagley PCP: Dr. Jagjit Cheema MD Status:ADM I N Location: LA3 [id number] HPI History of Present Illness Chief Complaint: Fever Informant: patient Onset/Context/Timing Onset: Days (3) Context: Gradual Onset Timing: Continuous Quality: Aching Location: Generalized Worsened by: Nothing Relieved by: Tylenol Narrative Narrative: Patient presents with a fever that began 2 days ago. Patient was seen here yesterday and diagnosed with a urinary tract infection and questionable pneumonia. Patient states his fever was up to 104 at home today. Patient states he had an episode of shaking chills earlier today. Patient admits to some dysuria. Patient denies any urinary frequency. Patient denies any hematuria. Patient states he has been taking Tylenol which has been helping with his fever. Patient admits to general body aches and some sweats. Patient admits to a mild cough but denies any sputum production. Patient states he doeshave some pain in his chest when he takes deep breaths. 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 BPH (benign prostatic hyperplasia) Claudication Confusion Dyspnea on exertion Essential hypertension Fibromyalgia GERD (gastroesophageal reflux disease) H/O percutaneous transluminal coronary angioplasty History of shingles HTN (hypertension) Obesity DEENA (obstructive sleep apnea) Prostate enlargement Pulmonary embolism Pure hypercholesterolemia Rectal bleeding Testosterone deficiency TIA (transient ischemic attack) Unstable angina UTI (urinary tract infection) Home Medications multivitamin,uy-lqnt-chbviqsp 27 mg-0.4 mg tablet 1 tab PO DAILY supplement 12/10/13 [History Last Taken 02/29/20] albuterol sulfate 90 mcg/actuation aerosol inhaler 1 - 2 puff inhalation Q6H PRNPRN Asthma 07/08/19 [History Last Taken 02/08/20] esomeprazole magnesium 20 mg capsule,delayed release (Nexium) 40 mg PO DAILY 10/01/20 [History Last Taken Unknown] atorvastatin 20 mg tablet 20 mg PO QHS #90 tabs 11/19/20 [Rx Last Taken Unknown] allopurinol 300 mg tablet 300 mg PO DAILY 10/20/21 [History Last Taken Unknown] potassium chloride 10 mEq tablet,extended release 20 meq PO DAILY 11/23/21 [History Last Taken Unknown] testosterone 4 pump transdermal DAILY 11/23/21 [History Last Taken Unknown] losartan 25 mg tablet 25 mg PO DAILY #90 tabs 03/03/22 [Rx Last Taken 08/09/22] tamsulosin 0.4 mg capsule 0.4 mg PO DAILY 04/29/22 [History Last Taken Unknown] amlodipine 5 mg tablet 5 mg PO DAILY htn #90 tabs 09/06/22 [Rx Last Taken Unknown] aspirin 325 mg tablet,delayed release 81 mg (0.2492 x 325 mg) PO DAILY #90 tabs 11/07/22 [Rx Last Taken Unknown] nitrofurantoin monohydrate/macrocrystals 100 mg capsule (Macrobid) 100 mg PO BID7 days #14 caps 12/14/22 [Rx Last Taken Unknown] potassium chloride 20 mEq tablet,extended release 40 meq (2 x 20 mEq) PO DAILY #8 tabs 12/14/22 [Rx Last Taken Unknown] Allergy/AdvReac Type Severity Reaction Status Date / Time Sulfa (Sulfonamide Allergy Unknown Verified 12/15/22 18:54 Antibiotics) Family History Mother CAD (coronary artery disease) Hypertension Hx of CABG Father Hypertension Myocardial infarction Grandfather Myocardial infarction paternal Grandmother Cancer pancreatic CA Grandfather CAD (coronary artery disease) Surgical History History of arthroscopy of right knee History of back surgery History of laparoscopic cholecystectomy History of left heart catheterization (LHC) History of PTCA (~08/2012) History of repair of rotator cuff History of tonsillectomy and adenoidectomy History of transurethral resection of prostate Presence of coronary angioplasty implant and graft (~08/2012) Presence of stent in coronary artery (~08/2012) Spinal cord stimulator status (~05/2021) Social History Smoking Status: Former smoker quit date: 06/19/94 pack-years: 42 how long ago did patient quit smokin second hand exposure: No alcohol intake: current alcohol intake frequency: holidays/special occasions only Alcohol type: beer substance use type: does not use caffeine: Yes Type: carbonated beverages, coffee and tea what type of physical activity do you participate in: none ROS ROS ED Constitutional Constitutional ED: Reports chills, fever(s) and sweats Eyes Eyes: Reports blurry vision; Denies diplopia ENT ENT ED: Denies rhinorrhea or sore throat Cardiovascular Cardiovascular: Reports chest pain; Denies palpitations Respiratory/Chest Respiratory/Chest: Reports cough; Denies dyspnea Gastrointestinal Gastrointestinal: Reports nausea; Denies vomiting Genitourinary Genitourinary ED: Reports dysuria; Denies hematuria Musculoskeletal Musculoskeletal: Reports myalgias; Denies back pain or neck pain Integumentary Reports rash; Denies abscess Neurologic Neurologic: Reports headache(s); Denies weakness Allergic/Immunologic Allergic/Immunologic ED: Denies mouth swelling or urticaria EXAM Physical Exam Const Vital Signs: 12/15/22 18:54 12/15/22 19:07 12/15/22 19:07 Temperature 98 F 99 F Temperature Source Temporal Oral Pulse Rate 98 98 Respiratory Rate 24 H 24 H Respiratory Effort Normal Respiratory Pattern Normal Blood Pressure 140/69 H 140/69 H Blood Pressure Mean 92 92 Pulse Ox 98 98 Oxygen Delivery Method Room Air 12/15/22 21:01 Temperature 101.8 F H Temperature Source Oral Pulse Rate Respiratory Rate Respiratory Effort Respiratory Pattern Blood Pressure Blood Pressure Mean Pulse Ox Oxygen Delivery Method Positive well nourished and well developed General Appearance ED: well developed and NAD HEENT Reports moist mucous membranes Neck supple and no JVD Resp normal respiratory effort Auscultation: diminished lung sounds bilateral lower Cardio regular rate and regular rhythm GI normal to inspection, nondistended, normoactive bowel sounds and non-tender Palpation: soft Extremity normal to inspection General Extremety ED: Negative for edema or tenderness General Extremity: Negative for edema Neuro oriented x3, CN's II-XII intact bilaterally and no sensory deficits noted Sensorium / Orientation: alert Motor Exam: strength 5/5 throughout Psych mental status grossly normal MDM MDM MDM Narrative Medical decision making narrative: Differential diagnosis includes sepsis, pneumonia, urinary tract infection, and pyelonephritis. CBC will be obtained to assess for leukocytosis and anemia. Comprehensive metabolic profile will be obtained to assess for hepatic function,renal function, and electrolyte abnormality. Serum lactate will be obtained to assess for sepsis. PT was INR and PTT will be obtained to assess for coagulopathy. Chest x- ray will be obtained to assess for pneumonia. COVID-19 rapid antigen will be obtained to assess for COVID infection. Influenza A and influenza B antigens will be obtained to assess for influenza infection. Blood and urine cultures were obtained yesterday. These will not be repeated. History & Record Review Additional record(s) reviewed:: Prior ED visit and Prior labs Lab Data Lab results narrative: Urine culture from yesterday was reviewed. It grew out gram-negative rods that were lactose fermenting. This is likely E. coli. Sensitivities are still pending. Blood cultures are still pending. CBC was reviewed. White blood cellcount was low at 4.3. Platelets were low at 87. These are both decreased from yesterday's results. Comprehensive metabolic profile was reviewed. Creatinine was slightly elevated at 1.36. This was consistent with yesterday's result. Total bilirubin was 1.4. This was improved compared to yesterday. PT with INR and PTT were reviewed and were essentially within normal limits. Lactate was reviewed and was normal at 1.7. Labs: Laboratory Results - last 24 hr 12/15/22 19:55 WBC 4.3 L RBC 4.61 Hgb 14.4 Hct 41.1 MCV 89.2 MCH 31.2 MCHC 35.0 RDW Std Deviation 43.3 RDW Coeff of Lito 13.2 Plt Count 87 L MPV 11.6 Immature Gran % (Auto) 0.500 Neut % (Auto) 90.2 H Lymph % (Auto) 4.4 L [place] % (Auto) 4.0 Eos % (Auto) 0.7 Baso % (Auto) 0.2 Absolute Neuts (auto) 3.9 Absolute Lymphs (auto) 0.19 L Nucleated RBC % 0 Differential Comment SCANNED PT 14.9 INR 1.2 APTT 32.2 Sodium 135 L Potassium 3.3 L Chloride 105 Carbon Dioxide 21.0 Anion Gap 9 BUN 17 Creatinine 1.36 H Estim Creat Clear Calc 68.24 Est GFR (MDRD) Af Amer 68 Est GFR (MDRD) Non-Af 56 L BUN/Creatinine Ratio 12.5 Glucose 131 H Lactic Acid 1.7 Calcium 8.6 Total Bilirubin 1.40 H AST 36 ALT 47 Alkaline Phosphatase 77 Total Protein 7.4 Albumin 3.5 Globulin 3.9 Albumin/Globulin Ratio 0.9 Radiography Diagnostic Testing: Clinical Impression(s) from Imaging Studies Chest X-Ray 12/15/22 20:05 IMPRESSION: There are findings consistent with COPD. There is no evidence of acute chest disease. Electronically Signed: Joesph Clark MD at 20:26 EDT , PA and lateral chest x-ray was obtained. There are 2 views. On my independent interpretation, lung moreira show evidence of COPD. There is normal cardiac silhouette. Bony thorax is normal. There is no acute process noted. Radiologist also interpreted the x-ray and agrees. Treatment and Re-Evaluation :: Patient was given IV fluids and Tylenol initially. Patient was given a dose of Rocephin. Patient was given Zofran for nausea. Patient was advised of his findings. Patient was advised of the need for hospitalization due to failed outpatient therapy. Case was discussed with the hospitalist. She will admit the patient to her service. Patient understands and is agreeable with the plan. All questions were answered. Discharge Plan Triage Chief Complaint: Fever ED Provider: Nahum Dias Dx/Rx/DC Orders Clinical Impression: Complicated urinary tract infection, Failure of outpatient treatment, Thrombocytopenia Prescriptions: No Action esomeprazole magnesium [Nexium] 20 mg capsule,delayed release(DR/EC) 40 mg PO DAILY allopurinol 300 mg tablet 300 mg PO DAILY tamsulosin 0.4 mg capsule 0.4 mg PO DAILY testosterone 20.25 mg/1.25 gram (1.62 %) gel in metered-dose pump 4 pump transdermal DAILY Patient Comments: APPLY 4 PUMPS DAILY potassium chloride 10 mEq tablet extended release 20 meq PO DAILY aspirin 325 mg tablet,delayed release (DR/EC) 81 mg PO DAILY Qty: 90 0RF multivitamin,kl-dqoh-gxvfzuwt 1 TABLET tablet 1 tab PO DAILY Patient Comments: vitamin albuterol sulfate 1 INHALER inhaler 1 - 2 puff INHALATION Q6H PRN PRN (Reason: Asthma) nitrofurantoin monohyd/m-cryst [Macrobid] 100 mg capsule 100 mg PO BID 7 Days Qty: 14 0RF Rx Instructions: must administer with a meal/food potassium chloride 20 mEq tablet extended release 40 meq PO DAILY Qty: 8 0RF atorvastatin 20 mg tablet 20 mg PO QHS Qty: 90 3RF losartan 25 mg tablet 25 mg PO DAILY Qty: 90 3RF amlodipine 5 mg tablet 5 mg PO DAILY Qty: 90 3RF Primary Care Provider: Jagjit Cheema Referrals: Jagjit Cheema MD [Primary Care Provider] - Disposition Disposition: Acute Care Hospital [facility] What to do if you have Problems For any increased pain, shortness of breath, bleeding, nausea or vomiting, chestpain, or any unexpected problems, contact your Primary Care Provider. Call [facility] ([phone]) or report to the closest Emergency Room. Call 911 if necessary. 12/16/22124 <Electronically signed by Nahum Dias DO> Cosigner Signature (if applicable): CC: Dr. Jagjit Cheema MD ~ Signed [facility] Work Phone: 1(501) 601-232606-30-2023 Progress note Author Lucy Partida [facility] December 16, 2022 12:19am Note Date/Time December 16, 2022 12:2 0am [facility] Medical Records Department [address] [place] [address] Progress Note - Hospitalist 12/16/22 0019 MR#: [id number] Acct: [id number] Name: DURANLAZARO ARIAS Rep #:[id number] : 1955 67 From: Lucy Partida MD PCP: Dr. Jagjit Cheema MD Status:ADM I N Location: [place] [address] Hospitalist Note Patient noted willingness to restart eliquis regimen. Reports to staff occasionally having intermittent palpitations. 12/16/22 0019 <Electronically signed by Lucy Partida MD> Cosigner Signature (if applicable): CC: ~ Signed [facility] Work Phone: 1(273) 405-931006-30-2023 History and physical note Author [facility] December 15, 2022 10:52pm Note Date/Time December 15, 2022 10[facility] [address] [place] [address] H&P Exam - Hospitalist 12/15/22 2210 MR#: [id number] Acct: [id number] Name: LAZARO GARZON Rep #:[id number] : 1955 67 From: Lucy Partida MD PCP: Dr. Jagjit Cheema MD Status:ADM I N Location: [place] [address] HPI - General General Date of Admission: 12/15/22 Date of Service: 12/15/22 Chief Complaint: Recent UTI Dx, ongoing fevers, chills. HPI Narrative The patient is a 67 y/o M w/ PMHx: Hx DVT/PE, PAF/Flutter, Chronic thrombocytopenia, DEENA on CPAP q HS, Former tobacco use, CAD s/p PCI, HTN, HLD, GERD, Fibromyalgia, BPH, Hx TIA, Obesity who presents to the [facility] ED on 12/15/22 with history of intial ED evaluation on 12/14/2022 with recent PCP evaluation andreferral for concern of UTI and weakness with persistent fever, general malaise noted to have been feeling poorly for the last 2 to 3 days with urine apparentlyconsistent with a urinary tract infection at PCP office with decreased appetite as well as poor oral intake with mild complaint of dyspnea but no significant cough, suprapubic abdominal discomfort as well as flank discomfort with CBC withWC 15.8 with left shift, chemistry with a BUN/creatinine 15/1.35 only mildly above baseline, potassium 3.0 which was supplemented, lactic acid 1.4, hepatic profile with T. bili 2.3 otherwise unremarkable, urinalysis with evidence of UTIwith urine culture pending, chest x-ray with a small region of atelectasis but no focal infiltrate, CT flank with noted stable left adrenal lesion and right renal cyst as well as liver cyst placed Macrobid given history of sensitivity tothis agent in the past and discharged to home now representing secondary to persistent fevers up to 104 at home with onset of chills and ongoing persistent dysuria with no associated hematuria prompting repeat ED assessment. Patient notes that his fever has been responsive to Tylenol therapy. Work-up in the ED included initially T98 with most recent repeat T101.8, BP 140/69, respiratory rate 24, 98% on room air, CBC with WC 4.3 notably improved from day prior, hemoglobin 14.4, platelet 87 with neutrophil 90.2% mildly increased from day prior and lymphopenia, unremarkable coags, CMP with sodium 135, potassium 3.3, BUN/creatinine 17/1.36, glucose 131, lactic acid 1.7, hepatic profile with T. bili 1.40 otherwise unremarkable, chest x-ray with chronic changes with no evidence of acute cardiopulmonary findings, rapid SARS COVID and influenza antigen negative. Patient of note from review of records with prior evidence E.coli ESBL urinary tract infection with decent resistant patterns. In the ED patient ministered 1 L normal saline, Tylenol 1000 mg p.o. x1, Rocephin 1 g IV x1, Zofran 4 mg IV x1. [facility] Medical History Abnormal myocardial perfusion study Abnormal stress test Acute pyelonephritis Atherosclerotic heart disease of [place] coronary artery without angina pectoris BPH (benign prostatic hyperplasia) Claudication Confusion Dyspnea on exertion Essential hypertension Fibromyalgia GERD (gastroesophageal reflux disease) H/O percutaneous transluminal coronary angioplasty History of shingles HTN (hypertension) Obesity DEENA (obstructive sleep apnea) Prostate enlargement Pulmonary embolism Pure hypercholesterolemia Rectal bleeding Testosterone deficiency TIA (transient ischemic attack) Unstable angina UTI (urinary tract infection) Home Medications multivitamin,bp-myjk-rzsctbld 27 mg-0.4 mg tablet 1 tab PO DAILY supplement 12/10/13 [History Last Taken 09/12/20] albuterol sulfate 90 mcg/actuation aerosol inhaler 1 - 2 puff inhalation Q6H PRNPRN Asthma 07/08/19 [History Last Taken 02/08/20] esomeprazole magnesium 20 mg capsule,delayed release (Nexium) 40 mg PO DAILY 10/01/20 [History Last Taken Unknown] atorvastatin 20 mg tablet 20 mg PO QHS #90 tabs 11/19/20 [Rx Last Taken Unknown] allopurinol 300 mg tablet 300 mg PO DAILY 10/20/21 [History Last Taken Unknown] potassium chloride 10 mEq tablet,extended release 20 meq PO DAILY 11/23/21 [History Last Taken Unknown] testosterone 4 pump transdermal DAILY 11/23/21 [History Last Taken Unknown] losartan 25 mg tablet 25 mg PO DAILY #90 tabs 03/03/22 [Rx Last Taken 08/09/22] tamsulosin 0.4 mg capsule 0.4 mg PO DAILY 04/29/22 [History Last Taken Unknown] amlodipine 5 mg tablet 5 mg PO DAILY htn #90 tabs 09/06/22 [Rx Last Taken Unknown] aspirin 325 mg tablet,delayed release 81 mg (0.2492 x 325 mg) PO DAILY #90 tabs 11/07/22 [Rx Last Taken Unknown] nitrofurantoin monohydrate/macrocrystals 100 mg capsule (Macrobid) 100 mg PO BID7 days #14 caps 12/14/22 [Rx Last Taken Unknown] potassium chloride 20 mEq tablet,extended release 40 meq (2 x 20 mEq) PO DAILY #8 tabs 12/14/22 [Rx Last Taken Unknown] Allergy/AdvReac Type Severity Reaction Status Date / Time Sulfa (Sulfonamide Allergy Unknown Verified 12/15/22 18:54 Antibiotics) Family History Mother CAD (coronary artery disease) Hypertension Hx of CABG Father Hypertension Myocardial infarction Grandfather Myocardial infarction paternal Grandmother Cancer pancreatic CA Grandfather CAD (coronary artery disease) Surgical History History of arthroscopy of right knee History of back surgery History of laparoscopic cholecystectomy History of left heart catheterization (LHC) History of PTCA (~08/2012) History of repair of rotator cuff History of tonsillectomy and adenoidectomy History of transurethral resection of prostate Presence of coronary angioplasty implant and graft (~08/2012) Presence of stent in coronary artery (~08/2012) Spinal cord stimulator status (~05/2021) Social History Smoking Status: Former smoker quit date: 06/19/94 pack-years: 42 how long ago did patient quit smokin second hand exposure: No alcohol intake: current alcohol intake frequency: holidays/special occasions only Alcohol type: beer substance use type: does not use caffeine: Yes Type: carbonated beverages, coffee and tea what type of physical activity do you participate in: none ROS ROS Narrative Admission Review of Systems: CONSTITUTIONAL: No weight loss, + fever, chills, weakness or fatigue. HEENT: Eyes: No visual loss, blurred vision, double vision or yellow sclerae. Ears, Nose, Throat: No hearing loss, sneezing, congestion, runny nose or sore throat. SKIN: No rash or itching, lesions, wounds. CARDIOVASCULAR: No chest pain, chest pressure or chest discomfort, palpitations,edema, orthopnea, syncopal events. RESPIRATORY: + Intermittent nonproductive cough, occasional shortness of breath,No reported wheezing, hemoptysis. GASTROINTESTINAL: + anorexia, No nausea, vomiting or diarrhea, abdominal pain, melena, BRBPR. GENITOURINARY: + dysuria, frequency, suprapubic discomfort, flank discomfort, Nourgency or retention. NEUROLOGICAL: No headache, dizziness, syncope, paralysis, ataxia, numbness or tingling in the extremities, focal weakness, change in bowel or bladder control,seizure. MUSCULOSKELETAL: + muscle, back pain, joint pain or stiffness. HEMATOLOGIC: No anemia, bleeding or bruising. LYMPHATICS: No enlarged nodes. No history of splenectomy. PSYCHIATRIC: No history of depression or anxiety. ENDOCRINOLOGIC: + reports of sweating, cold or heat intolerance. No polyuria or polydipsia. ALLERGIES: No history of asthma, hives, eczema or rhinitis. Vital Signs Vital Signs Vital Signs: 12/15/22 18:54 12/15/22 19:07 12/15/22 19:07 Temperature 98 F 99 F Temperature Source Temporal Oral Pulse Rate 98 98 Respiratory Rate 24 H 24 H Respiratory Effort Normal Respiratory Pattern Normal Blood Pressure 140/69 H 140/69 H Blood Pressure Mean 92 92 Pulse Ox 98 98 Oxygen Delivery Method Room Air 12/15/22 21:01 Temperature 101.8 F H Temperature Source Oral Pulse Rate Respiratory Rate Respiratory Effort Respiratory Pattern Blood Pressure Blood Pressure Mean Pulse Ox Oxygen Delivery Method Weight Weight: 327 lb 6.4 oz Body Mass Index (BMI) 38.8 Physical Exam Narrative Physical Examination: General: Awake, alert, oriented x 3 and cooperative, laying in the ED bed, mildly diaphoretic, flushed, mildly tachycardic. Skin: Flushed color, normal turgor, no icterus, no cyanosis. HEENT: AT/NC, EOMI, PERRLA, moderately dry MM, no carotid bruits or JVD noted; however, habitus with thickened neck makes evaluation difficult. Lungs: Diminished, distant, likely in part secondary to obese habitus, mild increased respiratory rate but no distress, no rales, ronchi or wheezing. Heart: Mildly tachycardic with regular rhythm; no gallop, rub audible. Abdomen: Soft, obese, NTTP, ND, distant normal BS, difficult to assess HSM givenhabitus. Extremities: No cyanosis, clubbing, or edema. Neurological: Patient awake, alert, oriented as noted, cognitive function intact; pupils equally reactive to light and accommodation, cranial nerves grossly normal, moving all 4 extremities, no focal deficits, strength moderatelyglobally decreased secondary to acute presentation. Psychiatric: Affect appears flat, fatigued, ill-appearing, no acute evidence of depressive or anxiety feelings. Results Lab / Micro Data 12/15/22 19:55 12/15/22 19:55 Labs: Laboratory Results - last 24 hr 12/15/22 19:55: WBC 4.3 L, RBC 4.61, Hgb 14.4, Hct 41.1, MCV 89.2, MCH 31.2, MCHC 35.0, RDW Std Deviation 43.3, RDW Coeff of Lito 13.2, Plt Count 87 L, MPV 11.6, Immature Gran % (Auto) 0.500, Neut % (Auto) 90.2 H, Lymph % (Auto) 4.4 L, [place] % (Auto) 4.0, Eos % (Auto) 0.7, Baso % (Auto) 0.2, Absolute Neuts (auto) 3.9, Absolute Lymphs (auto) 0.19 L, Nucleated RBC % 0, Differential Comment SCANNED, PT 14.9, INR 1.2, APTT 32.2, Sodium 135 L, Potassium 3.3 L, Chloride 105, Carbon Dioxide 21.0, Anion Gap 9, BUN 17, Creatinine 1.36 H, Estim Creat Clear Calc 68.24, Est GFR (MDRD) Af Amer 68, Est GFR (MDRD) Non-Af 56 L, BUN/Creatinine Ratio 12.5, Glucose 131 H, Lactic Acid 1.7, Calcium 8.6, Total Bilirubin 1.40 H, AST 36, ALT 47, Alkaline Phosphatase 77, Total Protein 7.4, Albumin 3.5, Globulin 3.9, Albumin/Globulin Ratio 0.9 Micro: Microbiology 12/15/22 19:55 Nasal Secretion SARS-CoV-2 & FLU Antigen (Rapid) - Final Radiology Impression Chest X-Ray 12/15/22 20:05 IMPRESSION: There are findings consistent with COPD. There is no evidence of acute chest disease. Electronically Signed: Joesph Clark MD at 20:26 EDT , Assessment & Plan Assessment/Plan (1) Complicated urinary tract infection: PLAN: Plan The patient is a 67 y/o M w/ PMHx: Hx DVT/PE, PAF/Flutter, Chronic thrombocytopenia, DEENA on CPAP q HS, Former tobacco use, CAD s/p PCI, HTN, HLD, GERD, Fibromyalgia, BPH, Hx TIA, Obesity who presents to the [facility] ED on 12/15/22 with history of intial ED evaluation on 12/14/2022 with recent PCP evaluation andreferral for concern of UTI placed on Macrobid given history of sensitivity to this agent in the past and discharged to home now representing secondary to persistent fevers up to 104 at home with onset of chills and ongoing persistent dysuria with no associated hematuria prompting repeat ED assessment. #1. Acute Complicated Urinary Tract Infection: Will admit to [facility] upon ED evaluation remarkable, pending UCx, from review of most recent records patient has previously had E. coli ESBL producing organism urinary tract infection with decent resistance patterns, will continue judicious IVFs, monitor I/Os, initiateIV meropenem based on most recent 07/23/2018 culture w/ transition as able pendingsensitivities and speciation. Bld cx x 2 obtained in the ED. Patient did report 6,000 mg total tylenol administration including that administered in the ED following more intensive discussions and given this will hold on tylenol usage and obtain tylenol level now and in AM. Will use motrin for fever at this point. #2. Suspected Underlying Chronic COPD: Chest x-ray with chronic COPD type changes, no obvious infiltrate, underlying history may be etiology for patient'smild cough, no formal diagnosis but history of tobacco usage, will initiate ATC budesonide therapy with PRN albuterol, HOB, IS parameters, if able to produce sputum would certainly send culture and will obtain full respiratory viral panelto assure no concurrent acute viral infection. #3. Mild acute renal insufficiency likely secondary to recent decreased oral intake, dehydration with acute presentation: Admission BUN/creatinine 17/1.36, day prior BUN/creatinine 15/1.35, baseline appears primarily 1.0-1.2 but has been previously up to 1.3, continue judicious hydration, if worsens further would hold patient's losartan but for now very minimally changed from his baseline. #4. Hyperbilirubinemia: Recent 12/14/2022 visit with T. bili elevated at 2.30, repeat today 1.40, LFTs unremarkable, likely related with his recent acute presentation, continue treatments as noted and repeat CMP in AM. #5. Hypokalemia: Admission K+ 3.3, magnesium level requested supplementation given, repeat level in AM. #6. Acute on chronic thrombocytopenia: Patient with previous evidence of thrombocytopenia throughout his history, unclear exact etiology, acute presentation 12/15/2022 with platelet 87, prior to this 138, likely reactive withacute illness, will continue to trend CBC. #7. CAD: Status post PCI LAD 08/2012, most recent repeat catheterization 2018 demonstrating salamatof multivessel coronary disease and a patent LAD stent at thattime, will continue aspirin, statin, losartan, for most recent list not on beta- jacob therapy, unclear exact reason. #8. History of VTE: Patient with prior history of DVT, PE after travel and witha concurrent PICC line treated with NOAC, no longer taking. #9. Paroxysmal atrial flutter/paroxysmal atrial fibrillation: Recent evaluation08/09/2022 with cardioversion from atrial fibrillation/flutter which was successful, recent 11/07/2022 cardiology visit with patient insistence and preference at that time of discontinuation of his anticoagulant therapy secondary to cost and deferral of usage of Coumadin despite discussion of strokerisk but agreement to take daily aspirin 325 mg. #10. Hypertension: Continue home regimen including amlodipine, losartan, PRN hydralazine. #11. Hyperlipidemia: We will continue patient on statin therapy. #12. History TIA: We will continue aspirin, statin, hypertensive regimen as noted #13. BPH: We will continue patient home Flomax regimen. #14. Gout: We will continue patient home allopurinol regimen. #15. Obesity: Weight loss and lifestyle changes encouraged. #16. GERD: We will continue patient home PPI. #17. Former tobacco use: Encourage continued tobacco cessation. #18. DEENA: CPAP nightly. #19. DVT prophylaxis: Lovenox cautiously given concurrent thrombocytopenia as noted above. Admission Evaluation Time spent evaluating chart, patient history, patient evaluation, care planning and discussion with specialists: 75 minutes. Charges/Coding Visit Charges Inpatient E&M: 34524 Init Hosp L3 12/15/22 2253 <Electronically signed by Lucy Partida MD> Cosigner Signature (if applicable): CC: Dr. Lucy Partida MD; Dr. Jagjit Cheema MD~ Signed [facility] Work Phone: 1(745) [phone] Miscellaneous Notes* Telephone Encounter - Tamra Chau RN - 12/15/2022 6:34 PM EDT Patient's son calling to say his father was seen @ [facility] ER yesterday afternoon and diagnosed with prostatitis. He was prescribed antibiotics. This afternoon patient developed fever with shaking chills. Patient took Acetaminophen for fever at 1730 PM without effect. Temp is now increasing to 104 Disposition: ED now. Patient's son is agreeable and will transport his father to [facility]. Tamra Chau RN Reason for Disposition Fever > 103 F (39.4 C) Urine infection (MALE; cystitis, pyelonephritis, prostatitis, epididymitis, orchitis, urethritis) diagnosed recently Answer Assessment - Initial Assessment Questions 1. ANTIBIOTIC: Antibiotic prescribed 12/14 @ [facility] ER 2. DURATION: Started yesterday 3. MAIN SYMPTOM: shaking chills and fever 4. FEVER: fever started this afternoon and is increasing. T-104 one hour after taking Acetaminophen 5. OTHER SYMPTOMS: Do you have any other symptoms? (e.g., flank pain, penile discharge, scrotal pain, blood in urine) Protocols used: Recent Medical Visit for Illness Follow-up Itic-[id number], Urinary Tract Infection on Antibiotic Follow-up Call - Brip-RYZAJ-MH documented in this encounterHolzer Hospital06-28-2023 History of Present illness Narrative* Jagjit Cheema MD - 12/14/2022 4:21 PM EDT Patient presents with: UTI HPI: Patient presents today for office visit for UTI symptoms. Here with son. Started over the weekend with muscle aches and urinary frequency. Progressed over the last couple days. Complaints of just not feeling good. Sick to stomach. No vomiting. Unable to [...] Right 1988 LAPS SURG CHOLECYSTECTOMY W/CHOLANGIOGRAPHY 2004 [facility] - Dr. Bales OPEN REPAIR OF ROTATOR CUFF ACUTE Rotator cuff repair PERCUTANEOUS CORONARY INTERVENTION 2006 stent to LAD TONSILLECTOMY PRIMARY/SECONDARY <AGE 12 Tonsillectomy FAMILY HISTORY Problem Relation Age of Onset Hypertension Mother Heart Mother Stroke Mother Allergies Mother Breast Cancer Mother Heart Father of AL Allergies Father Asthma Daughter Allergies Sister Allergies [...] past medical history, surgical history, family history andsocial history today. REVIEW OF SYSTEMS All other reviewed and negative other than HPI. VITALS: BP 130/60 Pulse 80 Temp (!) 38.3 C (100.9 F) Wt (!) 145.7 kg (321 lb 3.2 oz) SpO2 99% BMI38.09 kg/m Last 4 Encounter Wt Readings: Date: [...] 3. Dehydration - ICD9: 276.51, ICD10: E86.0 Jagjit Cheema MD documented in this encounterHolzer Hospital05-09-2023 Miscellaneous Notes* Telephone Encounter - Allison Tavares RN - 10/25/2022 3:32 PM EDT Juliane from [facility] calls and is asking for [...] advise, Allison Tavares RN documented in this encounterHolzer Hospital05-09-2023 History of Present illness Narrative* Jagjit Cheema MD - 10/25/2022 2:29 PM EDT Patient presents with: Follow Up HPI: Patient presents today for office visit for follow up. PSYCH: Started on Sertraline 50 mg half tab to start then increase to 1 tablet daily. Feels ok. Denies side effects. Not sleeping well. Still feeling down and depressed. States it's gotten better though. Still has two more weeks before he has his divorce. No side effects. Does have some decreased sex drive on the meds. Says that is ok with current situation. Still some decreased ambition. Has been talking to his media associate for now. Not sure he can afford counseling right now. No suicidal ideation. 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 Labs were all stable. Component Latest [...] Abs Lymph 1.00 - 4.00 k/uL 1.14 Washita% % 8.6 Abs Washita <0.87 k/uL 0.42 Eosin% % 1.6 Abs [...] Right 1988 LAPS SURG CHOLECYSTECTOMY W/CHOLANGIOGRAPHY 2004 [facility] - Dr. Bales OPEN REPAIR OF ROTATOR CUFF ACUTE Rotator cuff repair PERCUTANEOUS CORONARY INTERVENTION 2006 stent to LAD TONSILLECTOMY PRIMARY/SECONDARY <AGE 12 Tonsillectomy FAMILY HISTORY Problem Relation Age of Onset Hypertension Mother Heart Mother Stroke Mother Allergies Mother Breast Cancer Mother Heart Father of AL Allergies Father Asthma Daughter Allergies Sister Allergies [...] past medical history, surgical history, family history andsocial history today. REVIEW OF SYSTEMS Is supposed [...] 130/66 Pulse 78 Ht 195.6 cm (6' 5) Wt (!) 147.4 kg (325 lb) SpO2 [...] - stable. 3. Coronary artery disease 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 angina pectoris- ICD9: 414.01, ICD10: I25.10 - call if any issues. 4. Atrial flutter, unspecified type (HCC) - ICD9: 427.32, ICD10: I48.92 - stable. 5. Adjustment disorder with anxious mood - ICD9: 309.24, ICD10: F43.22 - increase meds. Call if any issues. - SERTRALINE 50 MG TABLET Jagjit Cheema RTO in two months and prn. documented in this encounterHolzer Hospital04-07-2023 Miscellaneous Notes* Telephone Encounter - ZENAIDA Franco - 09/23/2022 1:14 PM EDT BEHAVIORAL HEALTH SOCIAL WORK CONSULT NOTE Service Date: September 23, 2022 Patient was identified by name and Patient: Lazaro Jones E [facility] [id number] (home) [phone] (cell) PCP: Jagjit Cheema MD [address] [place] [address] Patient identified for [facility] from: PCP Reason for referral: Resources Behavioral Health Resources: Psychology - talk therapy [facility] encounter type: Telephone Encounter Assessment: Referral made to engage patient experiencing an Adjustment Disorder and to provide therapy resources. [facility] reviewed patient's chart and insurance to identify resources. Patient stated they are experiencing stress. Patient denies suicidal or homicidal ideation. Patient identified he does not want toengage in therapy at this time. [facility] provided his contact information to patient if [...] 15 minutes ZENAIDA Franco-S documented in this encounterHolzer Hospital04-06-2023 History of Present illness Narrative* Jagjit Cheema MD - 09/22/2022 4:14 PM EDT Patient presents with: Sinus Problem HPI: Patient [...] down. No suicidal ideation. Not sleeping frequently. 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 Not current lung issues. [...] Right 1988 LAPS SURG CHOLECYSTECTOMY W/CHOLANGIOGRAPHY 2004 [facility] - Dr. Bales OPEN REPAIR OF ROTATOR CUFF ACUTE Rotator cuff repair PERCUTANEOUS CORONARY INTERVENTION 2006 stent to LAD TONSILLECTOMY PRIMARY/SECONDARY <AGE 12 Tonsillectomy FAMILY HISTORY Problem Relation Age of Onset Hypertension Mother Heart Mother Stroke Mother Allergies Mother Breast Cancer Mother Heart Father of AL Allergies Father Asthma Daughter Allergies Sister Allergies [...] past medical history, surgical history, family history andsocial history today. REVIEW OF SYSTEMS No gi [...] patient. Advised them to call if any sideeffects or questions. Red flags for re-assessment reviewed [...] 25 HYDROXY 6. Coronary artery disease 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 angina pectoris- ICD9: 414.01, ICD10: I25.10 - per cardiology [...] ICD10: M89.9 - VITAMIN D 25 HYDROXY Jagjit Cheema MD documented in this encounterHolzer Hospital03-21-2023 Miscellaneous Notes* Telephone Encounter - Beverley Cruz LPN - 09/06/2022 12:12 PM EDT Please see Teros message. * Telephone Encounter - Beverley Cruz LPN - 09/06/2022 11:58 AM EDT Patient has been identified by name and date of : Yes Patient phones for refill(s): Requested Prescriptions Pending Prescriptions Disp Refills losartan (COZAAR) 25 mg tablet 90 tablet 1 Sig: Take 1 tablet by mouth once daily. Date of last office visit in primary care: 11/29/2021 Medication has not been refilled since 08/13/2020, Teros message sent for reason why. Please advise. Thank you. Beverley Cruz LPN documented in this encounterHolzer Hospital02-21-2023 Procedure [facility]02-21-2023 History and physical note Author Dr. Alfred [facility] August 09, 2022 11:07am Note Date/Time August 08, 2022 8:23am [facility] Medical Records Department [address] [place] [address] History & Physical Exam 08/08/22820 MR#: [id number] Acct: [id number] Name: LAZARO GARZON Rep #:[id number] : 1955 66 From: Willis Alfred MD PCP: Dr. Jagjit Cheema MD Status:REG S DC Location: [facility] History and Physical Date of Admission: 08/09/22 [facility] [address] [place], [place] [address] OFFICE VISIT Date of Service:? 08/03/22 MR#: [id number] Acct: [id number] Name:LAZARO GUTIERREZ Rep #: [id number] : 1955 ? Provider: ?SARA Gooden Age/Sex:? 66/M Location: [facility] [place] Status: Signed HPI HPI History of Present Illness Surgical H&P: Yes Details: LAZARO GARZON, is a 66 year old white male who presents to the office today fora cardiovascular outpatient follow-up visit. He has a history of coronary arterydisease status post PCI to his LAD in August 2012, pulmonary embolism after traveling and from PICC line, hypertension, hyperlipidemia, and DEENA with CPAP now with findings of atrial flutter. From a cardiac standpoint, the patient is doing well. He denies any palpitations. He does acknowledge daily chest heaviness which radiates to his left shoulder. He does have SOB with exertion-he states this is worsening. He denies Orthopnea, and PND. He does wear a CPAP nightly. He does not have bleeding issues; no blood in urine, stool or nosebleeds. He does acknowledge worsening fatigue. He does have myalgias- back. He denies claudication. He deniesedema, or sudden weight gain. He does have dizziness/lightheadedness. He denies syncopal or near syncopal episodes, and headaches. Intake Vital Signs ? 08/03/2307:26 08/03/2307:26 Height 6 ft 5 in 6 ft 5 in Weight: 330 lb ? BMI 39.1 ? BP 136/76 H ? Blood Pressure Location Lt brachial ? Position Sitting ? Respiration 18 ? Pulse 65 ? Pulse Source Monitor ? Pulse Oximetry (%) 98 ? Intake Visit Reasons:?UPDATE H&P Port Patrol Officer Required: No Is patient in pain?: No Allergies Sulfa (Sulfonamide Antibiotics) Allergy (Verified 08/03/22 08:43) Unknown Medications multivitamin,vv-tcde-[id number] 27 mg-0.4 mg tablet 1 tab PO DAILY supplement 12/10/13 [History Confirmed 08/03/22] albuterol sulfate 90 mcg/actuation aerosol inhaler 1 - 2 puff inhalation Q6H PRNPRN Asthma 07/08/19 [History Confirmed 08/03/22] esomeprazole magnesium 20 mg capsule,delayed release (Nexium) 40 mg PO DAILY 10/01/20 [History Confirmed 08/03/22] atorvastatin 20 mg tablet 20 mg PO QHS #90 tabs 11/19/20 [Rx Confirmed 08/03/22] aspirin 81 mg tablet,delayed release (Adult Aspirin Regimen) 81 mg PO DAILY #30 tabs 04/12/21 [Rx Confirmed 08/03/22] allopurinol 300 mg tablet 300 mg PO DAILY 10/20/21 [History Confirmed 08/03/22] potassium chloride 10 mEq tablet,extended release 20 meq PO DAILY 11/23/21 [History Confirmed 08/03/22] testosterone 4 pump transdermal DAILY 11/23/21 [History Confirmed 08/03/22] losartan 25 mg tablet 25 mg PO DAILY #90 tabs 03/03/22 [Rx Confirmed 08/03/22] amlodipine 5 mg tablet 5 mg PO DAILY htn #90 tabs 03/17/22 [Rx Confirmed 08/03/22] apixaban 5 mg tablet 5 mg PO BID #60 tabs 04/29/22 [Rx Confirmed 08/03/22] tamsulosin 0.4 mg capsule 0.4 mg PO DAILY 04/29/22 [History Confirmed 08/03/22] Nurse's Note: Per patient, no changes in medications. PFSH Medical History?(Reviewed 08/03/22 @ 08:44 by Aparna Gooden CUSTOMER SERVICE CORRESPONDENCE CLERK, CUSTOMER SERVICE CORRESPONDENCE CLERK-C) Abnormal myocardial perfusion study Abnormal stress test Acute pyelonephritis Atherosclerotic heart disease of salamatof coronary artery without angina pectoris BPH (benign prostatic hyperplasia) Claudication Confusion Dyspnea on exertion Essential hypertension Fibromyalgia GERD (gastroesophageal reflux disease) H/O percutaneous transluminal coronary angioplasty History of shingles HTN (hypertension) Obesity DEENA (obstructive sleep apnea) Prostate enlargement Pulmonary embolism Pure hypercholesterolemia Rectal bleeding Testosterone deficiency TIA (transient ischemic attack) Unstable angina UTI (urinary tract infection) Surgical History? History of arthroscopy of right knee History of back surgery History of laparoscopic cholecystectomy History of left heart catheterization (LHC) History of PTCA (~08/2012) History of repair of rotator cuff History of tonsillectomy and adenoidectomy History of transurethral resection of prostate Presence of coronary angioplasty implant and graft (~08/2012) Presence of stent in coronary artery (~08/2012) Spinal cord stimulator status (~05/2021) Family History? Mother CAD (coronary artery disease) Hypertension Hx of CABGFather Hypertension Myocardial infarctionGrandfather Myocardial infarction ?? ? paternalGrandmother Cancer ?? ? pancreatic CAGrandfather CAD (coronary artery disease) Social History? Smoking Status:? Former smoker quit date: 06/19/94 pack-years: 42 how long ago did patient quit smoking:? 1994 second hand exposure:? No alcohol intake:? current alcohol intake frequency: holidays/special occasions only Alcohol type: beer substance use type:? does not use caffeine:? Yes Type: carbonated beverages, coffee and tea what type of physical activity do you participate in:? none ROS Const Const: Positive for fatigue; Negative for weakness, fever(s), headache(s), chills, frequent falls, weight gain or weight loss Eyes Eyes: Negative for blind spots, loss of peripheral vision, transient loss of vision, blurry vision, change in vision, double vision, floaters or tunnel vision ENT ENT: Positive for dizziness; Negative for headache(s), Nosebleed/epistaxis, balance problems or neck pain Cardio Chest Pain: Yes Frequency: daily Character: other (heaviness-radiates to his left shoulder) Onset: at rest and exercise Location: left chest Duration: minutes Palpitations: No Edema: None Muscle aches with walking: None Resp Respiratory: Positive for SOB with activity (worsening); Negative for SOB at rest or SOB orthopnea\SOB lying down GI GI: Negative nausea, vomiting, heartburn, bloating, vomiting blood/hematemesis, bright, red blood in stools or black,tarry stools Musc Musc: Positive for muscle aches/ myalgia (back); Negative for muscle weakness, joint pain or balance problems Neuro Neuro: Positive for dizziness and lightheadedness; Negative for near syncope, syncope, orthostatic symptoms, frequent falls, headache(s), weakness, blurry vision or double vision Barrett Hematologic/Lymphatic: Negative for easy bleeding or easy bruising Endo Endo: Positive for fatigue Cardiology Exam Const Appearance: cooperative, healthy appearing, comfortable and no acute distress Nutritional Appearance: well nourished and obese Orientation: alert, awake and oriented x3 Head Head: normal to inspection Ears: hearing grossly normal bilaterally Nose: external nose normal Face and Sinus: face symmetric Eyes General: appearance normal, both eyes and all related structures Eyelids: eyelids normal EOM: EOM intact bilaterally Neck Neck: normal visual inspection and no JVD Carotids: normal carotid upstroke Chest Chest inspection: normal inspection of the chest, symmetric chest movement and normal respiratory effort; Negative cough Auscultation: Bilateral: Clear to Auscultation Cardio Rate: regular rate Rhythm: regular rhythm Heart sounds: S1 normal and S2 normal; Negative rub, gallop or murmur GI GI: normal to inspection and obese Neuro General: patient alert, patient awake, patient oriented x3 and CN's II-XI intactbilaterally Skin Skin: no rashes or lesions noted Extremities Pulses: Normal: Right Posterior Tibial Pulse, Left Posterior Tibial Pulse, RightRadial Pulse and Left Radial Pulse Lower Extremity Edema: +1: Bilateral (Right leg brace) Psych Psychological: normal affect Supplemental Info Supplemental Information Echocardiogram from 05/18/2022: Interpretation Summary The study was technically difficult. ? Left ventricular systolic function is normal. The estimated ejection fraction is 55 %. Mild concentric left ventricular hypertrophy. The left atrium is mildly enlarged. Mild focal mitral valve calcification of the posterior leaflet. Mild (1+) mitral valve insufficiency. Trivial tricuspid valve insufficiency. Trivial pulmonic valve insufficiency. Unable to estimate RV systolic pressure/pulmonary artery pressure due to technically difficult study. Unable to assess diastolic dysfunction. Echocardiogram from January 14, 2016 LV estimated ejection fraction of 65%, moderate concentric LVH, trivial mitral valve insufficiency, trivial tricuspid valve insufficiency, and mild pulmonic valve insufficiency. Stress Test Report Date: 05-18-2022 Procedure: Pharmacologic stress nuclear imaging study Indications: Atrial flutter; CAD; PCI; shortness of breath/dyspnea on exertion Consent: Per the patient Procedure: The patient underwent pharmacologic (Regadenoson 0.4mg ) evaluation with a peak heart rate of 96 beats per minute (61%predicted maximal heart rate) and a resting blood pressure of 120/68 mmHg and a peak blood pressure of 122/68 mmHg. The baseline ECG demonstrated atrial flutter.? The peak pharmacologic ECG demonstrated no obvious ECG changes. There was a rare PVC during recovery. There was no complaint of chest discomfort during pharmacologic infusion or recovery. The examination was discontinued secondary to completion of protocol. Impression: 1.? Pharmacologic (Regadenoson) evaluation 2.? Peak pharmacologic ECG with continued atrial flutter with no obvious ECG changes. 3.? There was a rare PVC during recovery. 4.? Nuclear images pending Myocardial perfusion imaging study: Technique: The patient was injected with 14.7 millicuries of technetium 99m Cardiolite and subsequently rest SPECT Cardiolite nuclear imaging was obtained in the horizontal long, vertical long, and short axis views. The patient underwent pharmacologic (Regadenoson) evaluation with a peak heart rate of 96 beats per minute (61% percent predicted maximal heart rate) and a resting blood pressure of 120/68 mmHg and a peak blood pressure of 122/68 mmHg. The patient was injected with 44.0 millicuries of technetium 99m Cardiolite and subsequently stress SPECT Cardiolite nuclear imaging was obtained in the horizontal long, vertical long, and short axis views.? A gated Cardiolite study at peak stress was obtained. Interpretation: Rest and stress SPECT Cardiolite nuclear imaging status post realignment, normalization, and attenuation correction demonstrate at rest the appearance of diminished myocardial perfusion/tracer uptake in portions of the distal anterior/anteroapical segments which appears to normalize following stress.? There is end systolic thickening and brightening.? The gated Cardiolite study demonstrates myocardial thickening and inward wall motion.? The reported LVEF is58%. Impression: 1.? Rest and stress SPECT current nuclear imaging demonstrate myocardial perfusion changes at rest which appeared to improve/normalize following stress appearing compatible with shifting soft tissue attenuation/artifact with no obvious myocardial perfusion changes considered diagnostic for associated stress-induced myocardial ischemia. 2.? The gated Cardiolite study reports an LVEF of 58%. Heart catheterization from October 31, 2017 CONCLUSIONS Normal Left Ventricular End Diastolic Pressure Normal LV size, wall motion,and systolic function LVEF: by LV gram 60 % Hoh Multivessel CAD (LAD: Proximal Stent: Patent) RECOMMENDATIONS Risk factor modification Medical therapy CORONARY ANGIOGRAPHY DOMINANCE:? Right Dominant LEFT HEART ASSESSMENT Left Ventricular Ejection Fraction: by LV Gram 60 % Normal LV wall motion Normal Left Ventricular End Diastolic Pressure LVEDP: 9 mmHg LEFT MAIN: Angiographically normal LEFT ANTERIOR DECENDING ARTERY: PROX LAD: Previously placed stent is patent DIAGONAL 1: Ostial - 10-25 % Stenosis CIRCUMFLEX ARTERY: Angiographically normal RIGHT CORONARY ARTERY: Diffuse: Eccentric: 10-25%? % Stenosis VALVE FINDINGS: Normal Aortic Valve function Normal Mitral Valve function AORTIC ROOT: Angiographically normal 24-hour Holter monitor from April 2022: Minimum heart rate 56 bpm. Average heart rate 80 bpm. Maximum heart rate 138 bpm. Ventricular ectopy 1.5%. Supraventricular ectopy 0.0%. Longest R to R interval 1.9 seconds. Atrial fibrillation/flutter 98.5%. The patient kept a diary and noted headaches, chest pain, shortness of breath, dizziness, shoulder pain, heart bouncing/pounding, and anxious which correlated with elevated heart rate and/or ectopy. Labs: ?? ? LDL Cholesterol 18 mg/dL (0-130) ?? ? HDL Cholesterol 27 mg/dL (40-) L ?? ? Triglycerides 139 mg/dL (-199) ?? ? VLDL Cholesterol 28 mg/dL (5-40) Diagnostics: ?? ? Electrocardiogram ? Echocardiogram ? Stress Echocardiogram ? Stress Test NM ? Stress Test ? Cardiac Catheterization ? Chest X-Ray ? Pulmonary: ?? ? Pulmonary Function Manuel ? Assessment and Plan Assessment and Plan (1) Atrial flutter: ?Status:?Acute ?Plan: Patient has a history of atrial flutter. His EKG from today demonstrates Atrial flutter, heart rate 64bpm. His Holter monitor from 04/2022 demonstrated 98.5% ofatrial flutter. His echocardiogram from 05/18/2022 showed an ejection fraction of 55%, mild concentric LVH, and mildly enlarged left atrium.? His stress test on 05/18/2022 showed atrial flutter and was negative for ischemia. He continues to acknowledge ongoing symptoms which include chest discomfort, shortness of breath, fatigue, and lightheadedness/dizziness that may be related to his rhythm.? He will proceed with a cardioversion. Cardioversion instructions were reviewed with patient, and he voiced understanding. He will continue Eliquis 5mgtwice daily. He will continue to monitor for any concerning symptoms of atiral flutter. (2) Presence of stent in coronary artery: ?Status:?Chronic ?Comment: PTCA/stent to LAD 08/29 ?Plan: Patient has a history of coronary artery disease with stent placement to his LADin 2012. His most recent cardiac catheterization from 2018 demonstrated [place]am[place] multivessel CAD, and a patent stent in his LAD. His stress test from 05/18/22 was negative for ischemia. He does have complaints of chest discomfort. We will proceed with a cardioversion to see if this helps with his symptoms. Depending on symptoms and response to the cardioversion, further recommendations will be made. ? He will continue with his current medical therapy, along with monitoringfor any concerning symptoms.? (3) Pure hypercholesterolemia: ?Status:?Chronic ?Plan: Patient has a history of hypercholesterolemia. His most recent lipid panel from 04/28/2022: cholesterol 73, HDL 27, LDL 18, triglycerides 139. He will continue atorvastatin 20mg daily, along with aggressive risk factor and lifestyle modifications. (4) Essential hypertension: ?Status:?Chronic ?Plan: Patient has a history of hypertension. His blood pressure is well controlled at this time. He will continue with his current medical therapy, along with monitoring his blood pressures at home. He will notify our office of any persistently elevated blood pressure readings. (5) Dyspnea: ?Status:?Acute ?Plan: Patient acknowledges worsening dyspnea on exertion. His echocardiogram from 05/18/2022 demonstrated an ejection fraction of 55%. He will proceed with cardioversion. This will help better assess if his dyspnea is related to his rhythm. We will continue to monitor. ? ? ? Orders: Orders 12 Lead EKG performed by [facility] Today I25.1 0 - Atherosclerotic heart disease of salam[place] coronary artery without angina pectoris, I48.92 - Unspecified atrial flutter ? Plan Details Additional Comments: Patient will follow 3 months, or sooner if needed. Thank you for allowing me to participate in the care of your patient. Please don't hesitate to call if any issues arise. This note was generated using a voice recognition system and there may be incorrect words, spelling, or punctuation that were not noted when reviewing theoffice note prior to saving. Portions of this documentation were copied and pasted from previous office visitnotes to provide a cohesive continuity of the history. The note has been reviewed, edited, and updated, as necessary. Follow Up: ? ? 1 week post cardioversion on 08/09/2022 ? ? 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 delaying the surgery/procedure. It is not possible to know either the risk of delaying the surgery or procedure or chance of getting an infection with perfect accuracy, but a joint decision was made between the patient and the surgeon/proceduralist ?to proceed at this time with the scheduled surgery/procedure as indicated on the consent form. Coding Level of Care Code Off vis,est,level 4 Diagnoses Atrial flutter? I48.92 Presence of stent in coronary artery? Z95.5 Pure hypercholesterolemia? E78.00 Essential hypertension? I10 Dyspnea? R06.00 Coding Level of Care Code Off vis,est,level 4 Diagnoses Atrial flutter? I48.92 Presence of stent in coronary artery? Z95.5 Pure hypercholesterolemia? E78.00 Essential hypertension? I10 Dyspnea? R06.00 08/03/22 1656 <Electronically signed by Aparna Gooden NP, NP-C> Date Aparna RUIZ Cosigner Signature: Date (if applicable) CC:? Dr. Jagjit Cheema MD ~ Assessment & Plan Addt'l Comments Addendum: 08/09/2022 I have examined the patient and the H&P has been reviewed. There are no clinicalchanges since date of exam. This note was generated using a voice recognition system and there may be incorrect words, spelling or punctuation that were not noted when reviewing the office note prior to saving. 08/09/22 1107 <Electronically signed by Willis Alfred MD> Cosigner Signature (if applicable): CC: Dr. Willis Alfred MD; Dr. Jagjit Cheema MD~ Signed [facility] Work Phone: 1(453) 577-802901-04-2023 Miscellaneous Notes* Telephone Encounter - Fouzia Cope LPN - 06/22/2022 11:06 AM EST Patient phones requesting refills as follows: Requested Prescriptions Pending Prescriptions Disp Refills potassium chloride (K-TAB) 10 mEq tablet 180 tablet 1 Sig: Take 2 tablets by mouth once daily. CRUZITO-11/29/21 Labs-04/29/22 NOV-none med filled 11/16/21 Please review and advise. Fouzia Cope LPN documented [facility] this [facility]09-24-2022 Miscellaneous Notes* Telephone Encounter - Grace Darden Ma - 03/12/2022 9:20 AM EDT Last office visit: 11/29/21 F/u scheduled: none Grace Darden Ma documented in this [facility]09-06-2022 Miscellaneous Notes* Telephone Encounter - Grace Darden Ma - 02/22/2022 2:22 PM EDT Last office visit: 11/29/21 F/u scheduled: none Grace Darden Ma [facility] Miscellaneous Notes* Telephone Encounter - Grace Darden Ma - 02/22/2022 1:56 PM EDT Last office visit: 11/29/21 F/u scheduled: none Grace Darden Ma documented [facility]08-27[facility] History of Present illness Narrative* Carolann Lucas APRN.EDGE POLISHER - 02/12/2022 11:04 AM EDT Subjective The history is provided by the patient. No supervisor modern languages was used. HPI Lazaro Garzon is a 66 year old male who [...] have confirmed and edited as necessary, the [facility] Review of Systems Constitutional: Negative for chills [...] for higher level of care were discussed indetail warranting prompt ER evaluation. Carolann Lcuas APRN.ROSITA documented in this [facility]Hol[facility]06-21-2022 Miscellaneous Notes* Telephone Encounter - Sandy Velez LPN - 12/07/2021 10:20 AM EDT Pt called and states he had COVID then started with Shingles. He is taking medication for shingles and now he is having problems with his sinuses and starting to have problems with his ears. Pt instructed would need to be seen and evaluated. Pt states he is in [place] and will go to a stat care there. Sandy Caridad Agustin AGUILAR documented in this [facility]Hol[facility]06-13-2022 Miscellaneous Notes* Telephone Encounter - Kira Hassan RN - 11/29/2021 4:13 PM EDT Pt called and is notified of providers message and instructions. Pt voices understanding. Kira Hassan RN * Telephone Encounter - Jagjit Cheema MD - 11/29/2021 3:51 PM EDT Give me an update on how he is doing on Mon. rx sent in. * Telephone Encounter - Kira Hassan RN - 11/29/2021 3:43 PM EDT Pt called in and reports provider told him to call in if he had any change in symptoms. Pt states he has pain to his R ear/nostril/sinus/eye/head. He states he has had Shingles in the past and he feels bumps starting to form on his forehead into his hairline. He states he gets the shingles near hisR eye and has scaring to that eye from it. Pt asking if provider would send medication to [facility] for him. Please call if/when sent. documented in this encounterHol[facility]06-13-2022 Miscellaneous Notes* Telephone Encounter - Asuncion Robertson LPN - 11/29/2021 2:52 PM EDT Patient returned call and went over results, notes from Dr Cheema with understanding. * Telephone Encounter - Fouzia Cope LPN - 11/29/2021 2:49 PM EDT TC to pt. LM to call office, ask for triage nurse to get results. Fouzia Cope LPN * Telephone Encounter - Jagjit Cheema MD - 11/29/2021 2:44 PM EDT Let him know his blood clot blood test was ok. Call If any issues or worsening. documented in this encounterHolzer [facility]06-13-2022 History of Present illness Narrative* Shannon Vázquez RT(R) - 11/29/2021 1:00 PM EDT Radiology Service Progress Note PATIENT NAME: Lazaro Garzon DATE OF SERVICE: November 29, 2021 TIME: 1:05 PM PATIENT IDENTITY VERIFICATION COMPLETED USING TWO (2) IDENTIFIERS: Name and Date of confirmedby patient verbally. FALL SCREENING: Has the patient had 2 falls in the last year or 1 fall with injury or currently using an Ambulatory Assistive Device (Walker, Cane, Wheelchair, Crutches, etc.)? No PATIENT GENDER DATA: Male PATIENT RELEVANT IMPLANT DATA REVIEWED: Yes RADIOLOGY DEPARTMENT: General X-ray: Exam(s) Completed: Chest X-Ray PERIPHERAL IV DATA: Not applicable SIGNED BY: RT Dez(R) November 29, 2021 1:05 PM documented in this encounterHolzer [facility]04-28-2022 History of Present illness Narrative* Lyssa Velez LPN - 10/14/2021 12:26 PM EDT Patient identified by name, orthostatic BP Recumbent 142/80 Standing 150/86 Sitting 148/84 Lyssa Velez LPN * Kisha Wen APRN.EDGE POLISHER - 10/14/2021 12:18 PM EDT Subjective Non toxic apprearing Patient came in with complaints of feeling very light headed on and off for about 3 weeks. Patient had a back surgery with a stimulator placed at the end of May. Was on verylimited duty until august. Patient has been trying to build up his strenght was helping someone put in a deck and was in bed for two days with body pain. Then wsa getting his boat placed in the water and felt very light headed. Patient said he is feeling it now sitting on the chair. Does suffer fromhypertension. Was taking testosterone before the surgery but [...] Right 1987 LAPS SURG CHOLECYSTECTOMY W/CHOLANGIOGRAPHY 2004 [facility] - Dr. Bales OPEN REPAIR OF ROTATOR CUFF ACUTE Rotator [...] Mother Breast Cancer Mother Heart Father of [place] Allergies Father Asthma Daughter Allergies Sister Allergies [...] easy and not over exert hisself with tasksthat are larger like building a deck. Patient was okay with this care plan. Kisha Wen APRN.ROSITA documented in this encounterHol[facility]03-25-2022 Instructions* Patient Instructions* Oliva Gutierrez PA-C - 09/10/2021 5:09 PM EDT Follow up in 3 months or as needed. Wear inserts in all shoes. Get custom orthotics as soon as possible. Gentle range of motion and stretching as tolerated. Voltaren gel 3-4 times a day as needed. You can also take Tylenol 500-1000 mg 2- 3 times a day as needed for pain, take with food. Keep foot elevated above your heart as much as possible. Recommended to apply ice to affected area for 20 minutes, as often as every hour. Ice should not be applied directly to skin. Advised to applywarm soaks several times daily until resolution: Warm water with 1/2 cup each of Epson salts and white vinegar, gentle range of motion and massage for 10 to 15 minutes. documented in this encounterHolzer Hospital03-25-2022 History of Present illness Narrative* Oliva Gutierrez PA-C - 09/10/2021 4:38 PM EDT SERVICE DATE: September 10, 2021 PCP: Jagjit Cheema MD Subjective Patient ID: Lazaro is a [...] No other treatments tried. States he used tohave custom orthotics which he stopped using about [...] Right 1988 LAPS SURG CHOLECYSTECTOMY W/CHOLANGIOGRAPHY 2004 [facility] - Dr. Bales OPEN REPAIR OF ROTATOR CUFF ACUTE Rotator cuff repair PERCUTANEOUS CORONARY INTERVENTION 2006 stent to LAD TONSILLECTOMY PRIMARY/SECONDARY <AGE 12 Tonsillectomy FAMILY HISTORY Problem Relation Age of Onset Hypertension Mother Heart Mother Stroke Mother Allergies Mother Breast Cancer Mother Heart Father of [place] Allergies Father Asthma Daughter Allergies Sister Allergies [...] results and radiologist's interpretation, available in the [facility] health record. Images were reviewed [...] immediately helped his discomfort. Patient would like totrial them, but if he does not find [...] You can also take Tylenol 500-1000 mg 2- 3 times a day as needed for pain, take with food. Keep foot elevated above your heart as much as possible. Recommended to apply ice to affected area for 20 minutes, as often as every hour. Ice should not be applied directly to skin. Advised to applywarm soaks several times daily until resolution: Warm water with 1/2 cup each of Epson salts and white vinegar, gentle range of motion and massage for 10 to 15 minutes. FOLLOW-UP: Return in about 3 months (around 12/11/2021) for in Office Follow Up. SIGNATURE: Oliva Gutierrez PA-C PATIENT NAME: Lazaro Garzon DATE: September 10, 2021 TIME: 4:38 PM Medical Decision Making: Problems: Low: Stable chronic illness Data: Unique source(s) for external note(s) reviewed: 1 Unique test result(s) reviewed: 1 Risk: Low: Low risk from testing/treatment Medical Decision Making Level: 3 - Low documented in this encounterHol[facility]03-25-2022 History of Present illness Narrative* Ema Tavares RT(R) - 09/10/2021 4:15 PM EDT Radiology Service Progress Note PATIENT NAME: Lazaro Garzon DATE OF SERVICE: September 10, 2021 TIME: 4:32 PM PATIENT IDENTITY VERIFICATION COMPLETED USING TWO (2) IDENTIFIERS: Name and Date of confirmedby patient verbally. FALL SCREENING: Has the patient had 2 falls in the last year or 1 fall with injury or currently using an Ambulatory Assistive Device (Walker, Cane, Wheelchair, Crutches, etc.)? No PATIENT GENDER DATA: Male PATIENT RELEVANT IMPLANT DATA REVIEWED: Not Applicable RADIOLOGY DEPARTMENT: General X-ray: Exam(s) Completed: Lower Extremity X- Ray(s): Ankle, Right and Wt. Bearing and Foot, Right and Wt. Bearing PERIPHERAL IV DATA: Not applicable SIGNED BY: RT Diane(R) September 10, 2021 4:32 PM documented in this encounterHolzer [facility]03-20-2021 History of Present illness Narrative* Abraham Rosa MD - 09/05/2020 11:45 AM EDT DATE OF SERVICE: 09/05/2020 SUBJECTIVE: Patient is here with a history of gout and right great toe pain beginning several days after he stopped taking his allopurinol. OBJECTIVE: Right great toe is tender. ASSESSMENT: Gout. PLAN: Prednisone 60 mg daily for up to 5 days. Resume other medications. Abraham Rosa MD [id number] [facility] File#: [id number] END OF DOCUMENT / CHANGE LOG FOLLOWS Last Edited By Robert. Signed By Abraham Rosa MD #[place] Abraham Rosa MD on 09/14/2020 09:32 ET on 09/14/2020 09:32 ET Revision Number - 2 ^^^ Verified/Reviewed by 09/14/20 KELVIN [facility], [facility]–1983 PATIENT NAME: LAZARO GARZON MEDICAL REC #: [id number] [place], [place] ADMIT DATE: [facility] REPORT STATCARE PHYSICIAN documented in this encounterHolzer Hospital11-10-2020 History of Present illness Narrative* Ashwin Hernandez Tech (Rt) - 04/28/2020 4:00 PM EST documented in this encounterHolzer Hospital10-01-2020 History of Present illness Narrative* Eyal Montoya DO - 03/19/2020 4:48 PM EDT DATE OF SERVICE: 03/18/2020 HISTORY OF PRESENT [...] symptoms do not resolve. Eyal Montoya DO [id number] [facility] File#: [id number] END OF DOCUMENT / CHANGE LOG FOLLOWS Last Edited By Elec. Signed By Eyal Montoya Gary DO #[place] on 03/23/2020 08:06 ET on 03/23/2020 08:06 ET Revision Number - 2 ^^^ Verified/Reviewed by 03/23/20805 DARRIAN [facility] NAME: LAZARO GARZON MEDICAL REC #: [id number] [place], [place] [facility] documented in this encounterHolzer Hospital04-25-2014 History of Past illness Narrative* Problem Noted Date Resolved Date Pulmonary embolism 10/11/2013 10/25/2022 Shortness of breath 02/08/2007 07/13/2018 Palpitations 09/30/2005 07/13/2018 documented as of this encounter (statuses as of 10/26/2022) [facility] of Past illness Narrative* Problem Noted Date Resolved Date Pulmonary embolism 10/11/2013 10/25/2022 Shortness of breath 02/08/2007 07/13/2018 Palpitations 09/30/2005 07/13/2018 documented as of this encounter (statuses as of 10/26/2022) [facility] [facility] Narrative* Problem Noted Date Resolved Date Pulmonary embolism 10/11/2013 10/25/2022 Shortness of breath 02/08/2007 07/13/2018 Palpitations 09/30/2005 07/13/2018 documented as of this encounter (statuses as of 11/23/2022) [facility] History of Past illness Narrative* Problem Noted Date Resolved Date Pulmonary embolism 10/11/2013 10/25/2022 Shortness of breath 02/08/2007 07/13/2018 Palpitations 09/30/2005 07/13/2018 documented as of this encounter (statuses as of 12/15/2022) [facility] History of Past illness Narrative* Problem Noted Date Resolved Date Pulmonary embolism 10/11/2013 10/25/2022 Shortness of breath 02/08/2007 07/13/2018 Palpitations 09/30/2005 07/13/2018 documented as of this encounter (statuses as of 12/20/2022) [facility] History of Past illness Narrative* Problem Noted Date Resolved Date Pulmonary embolism 10/11/2013 10/25/2022 Shortness of breath 02/08/2007 07/13/2018 Palpitations 09/30/2005 07/13/2018 documented as of this encounter (statuses as of 12/20/2022) [facility] History of Past illness Narrative* Problem Noted Date Resolved Date Pulmonary embolism 10/11/2013 10/25/2022 Shortness of breath 02/08/2007 07/13/2018 Palpitations 09/30/2005 07/13/2018 documented as of this encounter (statuses as of 12/22/2022) [facility] History of Past illness Narrative* Problem Noted Date Diagnosed Date Resolved Date Pulmonary embolism 10/11/2013 3 Shortness of breath 02/08/2007 07/13/19 19 Palpitations 09/30/2005 07/13/2018 documented as of this encounter (statuses as of 01/03/2023) [facility] History of Past illness Narrative* Problem Noted Date Diagnosed Date Resolved Date Pulmonary embolism 10/11/2013 3 Shortness of breath 02/08/2007 07/13/19 19 Palpitations 09/30/2005 07/13/2018 documented as of this encounter (statuses as of 01/04/2023) [facility] History of Past illness Narrative* Problem Noted Date Diagnosed Date Resolved Date Pulmonary embolism 10/11/2013 3 Shortness of breath 02/08/2007 07/13/19 19 Palpitations 09/30/2005 07/13/2018 documented as of this encounter (statuses as of 01/24/2023) [facility] History of Past illness Narrative* Problem Noted Date Diagnosed Date Resolved Date Pulmonary embolism 10/11/2013 3 Shortness of breath 02/08/2007 07/13/19 19 Palpitations 09/30/2005 07/13/2018 documented as of this encounter (statuses as of 06/09/2023) [facility] History of Past illness Narrative* Problem Noted Date Resolved Date Shortness of breath 02/08/2007 07/13/2018 Palpitations 09/30/2005 07/13/2018 documented as of this encounter (statuses as of 09/10/2021) [address]-2007 History of Past illness Narrative* Problem Noted Date Resolved Date Shortness of breath 02/08/2007 07/13/2018 Palpitations 09/30/2005 07/13/2018 documented as of this encounter (statuses as of 10/14/2021) [address]2007 History of Past illness Narrative* Problem Noted Date Resolved Date Shortness of breath 02/08/2007 07/13/2018 Palpitations 09/30/2005 07/13/2018 documented as of this encounter (statuses as of 11/16/2021) [address]-2007 History of Past illness Narrative* Problem Noted Date Resolved Date Shortness of breath 02/08/2007 07/13/2018 Palpitations 09/30/2005 07/13/2018 documented as of this encounter (statuses as of 11/22/2021) [address]-2007 History of Past illness Narrative* Problem Noted Date Resolved Date Shortness of breath 02/08/2007 07/13/2018 Palpitations 09/30/2005 07/13/2018 documented as of this encounter (statuses as of 11/23/2021) [address]2007 History of Past illness Narrative* Problem Noted Date Resolved Date Shortness of breath 02/08/2007 07/13/2018 Palpitations 09/30/2005 07/13/2018 documented as of this encounter (statuses as of 11/29/2021) [address]-2007 History of Past illness Narrative* Problem Noted Date Resolved Date Shortness of breath 02/08/2007 07/13/2018 Palpitations 09/30/2005 07/13/2018 documented as of this encounter (statuses as of 11/29/2021) [address]2007 History of Past illness Narrative* Problem Noted Date Resolved Date Shortness of breath 02/08/2007 07/13/2018 Palpitations 09/30/2005 07/13/2018 documented as of this encounter (statuses as of 12/14/2021) [address]-2007 History of Past illness Narrative* Problem Noted Date Resolved Date Shortness of breath 02/08/2007 07/13/2018 Palpitations 09/30/2005 07/13/2018 documented as of this encounter (statuses as of 12/16/2021) [address]2007 History of Past illness Narrative* Problem Noted Date Resolved Date Shortness of breath 02/08/2007 07/13/2018 Palpitations 09/30/2005 07/13/2018 documented as of this encounter (statuses as of 02/12/2022) [address]2007 History of Past illness Narrative* Problem Noted Date Resolved Date Shortness of breath 02/08/2007 07/13/2018 Palpitations 09/30/2005 07/13/2018 documented as of this encounter (statuses as of 02/22/2022) [address]2007 History of Past illness Narrative* Problem Noted Date Resolved Date Shortness of breath 02/08/2007 07/13/2018 Palpitations 09/30/2005 07/13/2018 documented as of this encounter (statuses as of 02/22/2022) [address]2007 History of Past illness Narrative* Problem Noted Date Resolved Date Shortness of breath 02/08/2007 07/13/2018 Palpitations 09/30/2005 07/13/2018 documented as of this encounter (statuses as of 03/12/2022) [address]2007 History of Past illness Narrative* Problem Noted Date Resolved Date Shortness of breath 02/08/2007 07/13/2018 Palpitations 09/30/2005 07/13/2018 documented as of this encounter (statuses as of 04/21/2022) [address]2007 History of Past illness Narrative* Problem Noted Date Resolved Date Shortness of breath 02/08/2007 07/13/2018 Palpitations 09/30/2005 07/13/2018 documented as of this encounter (statuses as of 06/24/2022) [address]2007 History of Past illness Narrative* Problem Noted Date Resolved Date Shortness of breath 02/08/2007 07/13/2018 Palpitations 09/30/2005 07/13/2018 documented as of this encounter (statuses as of 09/06/2022) [address]2007 History of Past illness Narrative* Problem Noted Date Resolved Date Shortness of breath 02/08/2007 07/13/2018 Palpitations 09/30/2005 07/13/2018 documented as of this encounter (statuses as of 09/23/2022) [facility] History of Past illness Narrative* Problem Noted Date Resolved Date Shortness of breath 02/08/2007 07/13/2018 Palpitations 09/30/2005 07/13/2018 documented as of this encounter (statuses as of 09/23/2022) [facility] Librado Bah [facility] December 16, 2022 11:12am Note Date/Time December 16, 2022 11:0 7am [facility] Medical Records Department [address] [place] [address] Instructions for Home/Discharge Instructions 12/16/22 1106 MR#: [id number] Acct: [id number] Name: LAZARO GARZON Rep #:[id number] : 1955 67 From: Librado Bah DO PCP: Dr. Jagjit Cheema MD Status:ADM I N Discharge Instructions Diet Discharge Diet: No restrictions Activity Discharge Activity: Return to Normal Activity Weight Bearing Status: Full weight bearing Follow Up Care Test Results: Test results from this visit will be discussed in further detail at your follow- up appointment, if applicable. Discharge Plan Admission Admit Date/Time: 12/15/22 22:19 Primary Reason for Your Visit: cystitis Attending Provider: Librado Bah Primary Care Provider: Jagjit Cheema Consulting Providers: Lucy Partida Instructions Additional Instructions / Restrictions: You have a pressure percent at home for Cipro, take it for 5 days starting 12/17/2022 Discharge Orders/Prescriptions Prescriptions: Continued esomeprazole magnesium [Nexium] 20 mg capsule,delayed release(DR/EC) 40 mg PO DAILY allopurinol 300 mg tablet 300 mg PO DAILY tamsulosin 0.4 mg capsule 0.4 mg PO DAILY testosterone 20.25 mg/1.25 gram (1.62 %) gel in metered-dose pump 4 pump transdermal DAILY Patient Comments: APPLY 4 PUMPS DAILY potassium chloride 10 mEq tablet extended release 20 meq PO DAILY aspirin 325 mg tablet,delayed release (DR/EC) 81 mg PO DAILY Qty: 90 0RF multivitamin,ug-zmiz-aluggqid 1 TABLET tablet 1 tab PO DAILY Patient Comments: vitamin albuterol sulfate 1 INHALER inhaler 1 - 2 puff INHALATION Q6H PRN PRN (Reason: Asthma) Hold Instructions: hasn't needed Eliquis 5 mg tablet PO Q12H cholecalciferol (vitamin D3) [Vitamin D3] 25 mcg (1,000 unit) tablet 1,000 unit PO DAILY Patient Comments: 1 tablet by mouth once a day sertraline 50 mg tablet 25 mg PO Q24H Patient Comments: TAKE 1 & 1/2 (ONE & ONE-HALF) TABLETS BY MOUTH ONCE DAILY potassium chloride 20 mEq tablet extended release 40 meq PO DAILY Qty: 8 0RF Hold Instructions: MD Ordered atorvastatin 20 mg tablet 20 mg PO QHS Qty: 90 3RF losartan 25 mg tablet 25 mg PO DAILY Qty: 90 3RF amlodipine 5 mg tablet 5 mg PO DAILY Qty: 90 3RF Discontinued nitrofurantoin monohyd/m-cryst [Macrobid] 100 mg capsule 100 mg PO BID 7 Days Qty: 14 0RF Rx Instructions: must administer with a meal/food Referrals / Follow Up: Jagjit Cheema MD [Primary Care Provider] - See Referral Note (At your next scheduled visit) Disposition Disposition (needs filled in before D/C Order can be placed): Home, Self Care 12/16/22 1112<Electronically signed by Librado Bah DO>Librado Bah DO CC: Dr. Lucy Partida MD; Dr. Jagjit Cheema MD ~ Signed [facility] Work Phone: Discharge summary Author Librado [facility] December 16, 2022 11:32am Note Date/Time December 16, 2022 11:3 2am [facility] Medical Records Department [address] [place] [id number] Discharge Summary 12/16/22 1126 MR#: [id number] Acct: [id number] Name: LAZARO GARZON Rep #:[id number] : 1955 67 From: Librado Bah DO PCP: Dr. Jagjit Cheema MD Status:ADM I N Location: [place] [address] Providers Date of Admission: 12/15/22 Date of Discharge: 12/16/22 Primary Care Physician: Dr. Jagjit Cheema MD Reason For Visit: ACUTE COMPLICATED UTI, FAILED OUTPATIENT TREATMENT Diagnosis Discharge Diagnosis (1) Complicated urinary tract infection: Status: Acute Code(s): N39.0 - Urinary tract infection, site not specified Plan 1. Acute cystitis with E. coli-not ESBL E. coli #2 paroxysmal atrial fib/flutter #3 thrombocytopenia-etiology unclear #4 chronic obstructive pulmonary disease #5 hypokalemia #6 BPH Medications at Discharge Home Medications multivitamin,ux-fnef-jarxjoxn 27 mg-0.4 mg tablet 1 tab PO DAILY supplement 12/10/13 albuterol sulfate 90 mcg/actuation aerosol inhaler 1 - 2 puff inhalation Q6H PRNPRN Asthma 07/08/19 esomeprazole magnesium 20 mg capsule,delayed release (Nexium) 40 mg PO DAILY acid reflux 10/01/20 atorvastatin 20 mg tablet 20 mg PO QHS #90 tabs 11/19/20 allopurinol 300 mg tablet 300 mg PO DAILY gout 10/20/21 potassium chloride 10 mEq tablet,extended release 20 meq PO DAILY hypokalemia 11/23/21 testosterone 4 pump transdermal DAILY low testosterone 11/23/21 losartan 25 mg tablet 25 mg PO DAILY #90 tabs 03/03/22 tamsulosin 0.4 mg capsule 0.4 mg PO DAILY prostate 04/29/22 amlodipine 5 mg tablet 5 mg PO DAILY htn #90 tabs 09/06/22 aspirin 325 mg tablet,delayed release 81 mg (0.2492 x 325 mg) PO DAILY #90 tabs 11/07/22 potassium chloride 20 mEq tablet,extended release 40 meq (2 x 20 mEq) PO DAILY #8 tabs 12/14/22 apixaban 5 mg tablet (Eliquis) mg PO Q12H afib 12/15/22 cholecalciferol (vitamin D3) 25 mcg (1,000 unit) tablet (Vitamin D3) 1,000 unit PO DAILY general health 12/15/22 sertraline 50 mg tablet 25 mg PO Q24H depression 12/15/22 Hospital Course Operations None Procedures None Summary of Care Provided Minutes Spent on Discharge: 30 Hospital Course: This 67-year-old white male was seen in the emergency room at [facility] with complaints of elevated temperature at home, he had been seen on 12/14/2022 and diagnosed with acute cystitis, at that time he was placed on an antibiotic and discharged home. He returned to the ER for reevaluation after spiking a temp at home. Work-up in the emergency room showed the patient's white blood cell count to be normal, chemistry profile showed an elevated creatinine 1.36 and potassium of 3.3. Patient was admitted to [place] [address] for acute cystitis, ESBL organism was suspected but the patient's urine culture returned positive for E. coli which was pansensitive. Patient appeared to recover quickly after his hospitalization, he requested discharge if possible on12/16/2022, I reevaluated him at that time and felt that he was stable for discharge home. On 12/16/2022, patient was seen and examined: On examination he appeared in good health and spirits. Vital signs as documented. Skin warm and dry and without overt rashes. Neck without JVD, neck was supple, trachea midline, thyroid was normal. Lungs clear bilaterally, normal air movement was noted. Heart exam notable for regular rhythm, normal sounds and absence of murmurs, rubs or gallops. Abdomen unremarkable and without evidence of organomegaly, masses, or abdominal aortic enlargement. Bowel sounds are present, abdomen is not distended. Extremities nonedematous, no cyanosis was noted, no clubbing was noted. Neuro: Cranial nerves II through XII are grossly intact, no focal motor deficits were noted, sensation to light touch and pinprick intact, motor exam 5/5 throughout. Psych: Patient is alert and oriented x3, he does not appear anxious or depressed, he does not appear agitated. Patient appears stable for discharge home on 12/16/2022. Weight / BMI Weight Weight: 146.7 kg Body Mass Index (BMI) 38.2 ABG / Lab / Microbiology Data 12/16/22 05:50 12/16/22 05:50 Laboratory: Laboratory Results - last 24 hr 12/15/22 19:55: WBC 4.3 L, RBC 4.61, Hgb 14.4, Hct 41.1, MCV 89.2, MCH 31.2, MCHC 35.0, RDW Std Deviation 43.3, RDW Coeff of Lito 13.2, Plt Count 87 L, MPV 11.6, Immature Gran % (Auto) 0.500, Neut % (Auto) 90.2 H, Lymph % (Auto) 4.4 L, [place] % (Auto) 4.0, Eos % (Auto) 0.7, Baso % (Auto) 0.2, Absolute Neuts (auto) 3.9, Absolute Lymphs (auto) 0.19 L, Nucleated RBC % 0, Differential Comment SCANNED, Diff Path Review Reviewed, PT 14.9, INR 1.2, APTT 32.2, Sodium 135 L, Potassium 3.3 L, Chloride 105, Carbon Dioxide 21.0, Anion Gap 9, BUN 17, Creatinine 1.36 H, Estim Creat Clear Calc 68.24, Est GFR (MDRD) Af Amer 68, Est GFR (MDRD) Non-Af 56 L, BUN/Creatinine Ratio 12.5, Glucose 131 H, Lactic Acid 1.7, Calcium 8.6, Magnesium 1.8, Total Bilirubin 1.40 H, AST 36, ALT 47, Alkaline Phosphatase 77, Total Protein 7.4, Albumin 3.5, Globulin 3.9, Albumin/Globulin Ratio 0.9 12/16/22 00:00: Acetaminophen 5.1 L 12/16/22 05:50: WBC 4.2 L, RBC 4.29 L, Hgb 13.1, Hct 37.9 L, MCV 88.3, MCH 30.5,MCHC 34.6, RDW Std Deviation 42.5, RDW Coeff of Lito 13.2, Plt Count 92 L, MPV 11.5, Immature Gran % (Auto) 0.500, Neut % (Auto) 82.1 H, Lymph % (Auto) 5.9 L, [place] % (Auto) 11.1 H, Eos % (Auto) 0.2, Baso % (Auto) 0.2, Absolute Neuts (auto)3.5, Absolute Lymphs (auto) 0.25 L, Nucleated RBC % 0, Differential Comment SCANNED, Diff Path Review Reviewed, Platelet Estimate SLT DEC, Sodium 137, Potassium 3.3 L, Chloride 108 H, Carbon Dioxide 22.0, Anion Gap 7, BUN 14, Creatinine 1.10, Estim Creat Clear Calc 84.38, Est GFR (MDRD) Af Amer 86, Est GFR (MDRD) Non-Af 71, BUN/Creatinine Ratio 12.7, Glucose 130 H, Calcium 7.8 L, Total Bilirubin 1.20 H, AST 34, ALT 41, Alkaline Phosphatase 59, Total Protein 6.1 L, Albumin 2.8 L, Globulin 3.3, Albumin/Globulin Ratio 0.8 L, Acetaminophen 2.3 L Microbiology: Microbiology 12/15/22 22:55 Mucosa - Nasopharyngeal Respiratory Panel (PCR) - Final 12/15/22 19:55 Nasal Secretion SARS-CoV-2 & FLU Antigen (Rapid) - Final Radiography Diagnostic Testing: Radiology Impression Chest X-Ray 12/15/22 20:05 IMPRESSION: There are findings consistent with COPD. There is no evidence of acute chest disease. Electronically Signed: Joesph Clark MD at 20:26 EDT , D/C Instructions Discharge Diet: No restrictions Weight Bearing Status: Full weight bearing Meaningful Use Info Meaningful Use Diagnoses (Choose all that apply): None applicable Discharge Plan Admission Admit Date/Time: 12/15/22 22:19 Primary Reason for Your Visit: cystitis Attending Provider: Librado Bah Primary Care Provider: Jagjit Cheema Consulting Providers: Lucy Partida Instructions Additional Instructions / Restrictions: You have a pressure percent at home for Cipro, take it for 5 days starting 12/17/2022 Discharge Orders/Prescriptions Prescriptions: Continued esomeprazole magnesium [Nexium] 20 mg capsule,delayed release(DR/EC) 40 mg PO DAILY allopurinol 300 mg tablet 300 mg PO DAILY tamsulosin 0.4 mg capsule 0.4 mg PO DAILY testosterone 20.25 mg/1.25 gram (1.62 %) gel in metered-dose pump 4 pump transdermal DAILY Patient Comments: APPLY 4 PUMPS DAILY potassium chloride 10 mEq tablet extended release 20 meq PO DAILY aspirin 325 mg tablet,delayed release (DR/EC) 81 mg PO DAILY Qty: 90 0RF multivitamin,dq-qfiw-ezdczjcm 1 TABLET tablet 1 tab PO DAILY Patient Comments: vitamin albuterol sulfate 1 INHALER inhaler 1 - 2 puff INHALATION Q6H PRN PRN (Reason: Asthma) Hold Instructions: hasn't needed Eliquis 5 mg tablet PO Q12H cholecalciferol (vitamin D3) [Vitamin D3] 25 mcg (1,000 unit) tablet 1,000 unit PO DAILY Patient Comments: 1 tablet by mouth once a day sertraline 50 mg tablet 25 mg PO Q24H Patient Comments: TAKE 1 & 1/2 (ONE & ONE-HALF) TABLETS BY MOUTH ONCE DAILY potassium chloride 20 mEq tablet extended release 40 meq PO DAILY Qty: 8 0RF Hold Instructions: MD Ordered atorvastatin 20 mg tablet 20 mg PO QHS Qty: 90 3RF losartan 25 mg tablet 25 mg PO DAILY Qty: 90 3RF amlodipine 5 mg tablet 5 mg PO DAILY Qty: 90 3RF Discontinued nitrofurantoin monohyd/m-cryst [Macrobid] 100 mg capsule 100 mg PO BID 7 Days Qty: 14 0RF Rx Instructions: must administer with a meal/food Referrals / Follow Up: Jagjit Cheema MD [Primary Care Provider] - See Referral Note (At your next scheduled visit) Disposition Disposition (needs filled in before D/C Order can be placed): Home, Self Care Charges/Coding Visit Charges Inpatient E&M: 77388 Disch Hosp 12/16/22 1132 <Electronically signed by Librado Bah DO> Cosigner Signature (if applicable): CC: Dr. Librado Bah DO; Dr. Jagjit Cheema MD~ Signed [facility] Work Phone: Evaluation note* Diagnosis Pes planus of both feet- Primary Acquired valgus deformity of right ankle Primary osteoarthritis of right ankle [facility] Diagnosis Feeling light headed- Primary Dizziness and giddiness [facility] Diagnosis Onset Date Resolution Status Fatigue acute Atherosclerotic heart diseas e of [place] coronary artery without angina pectoris chronic Essential hypertension chron ic Presence of stent in coronary artery 2012 chronic Pure hypercholesterolemia ch ronic Testosterone deficiency [facility] Work Phone: Evaluation note* Diagnosis Hypokalemia Hypopotassemia [facility] [place] [facility] Diagnosis Onset Date Resolution Status Fatigue acute Atherosclerotic heart diseas e of [place] coronary artery without angina pectoris chronic Essential hypertension chron ic Presence of stent in coronary artery 2012 chronic Pure hypercholesterolemia ch ronic Testosterone deficiency [facility] Fatigue acute Atherosclerotic heart diseas e of [place] coronary artery without angina pectoris chronic Essential hypertension chron ic Presence of stent in coronary artery 2012 chronic Pure hypercholesterolemia ch ronic Testosterone deficiency [facility] Work Phone: Evaluation note* Diagnosis Facial pain- Primary Headache Right ear pain Otalgia, unspecified Acute right eye pain Pain in or around eye [facility] [place] [facility]* Diagnosis GERD with esophagitis documented in this encounter [facility] noteNo assessment information available[facility] Work Phone: Evaluation note* Diagnosis Onset Date Resolution Status Atrial flutter acute Dyspnea acute Atherosclerotic heart diseas e of [place] coronary artery without angina pectoris chronic Essential hypertension chron ic Presence of stent in coronary artery 2012 chronic Pure hypercholesterolemia [facility] Work Phone: Evaluation note* Diagnosis Hypokalemia Hypopotassemia documented in this encounter [facility] note* Diagnosis Onset Date Resolution Status Atrial flutter acute Dyspnea acute Atherosclerotic heart diseas e of [place] coronary artery without angina pectoris chronic Essential hypertension chron ic Presence of stent in coronary artery 2012 chronic Pure hypercholesterolemia ron Atrial flutter acute Dyspnea acute Atherosclerotic heart diseas e of [place] coronary artery without angina pectoris chronic Essential hypertension chron ic Presence of stent in coronary artery 2012 chronic Pure hypercholesterolemia [facility] Work Phone: Evaluation note* Diagnosis Onset Date Resolution Status Atrial flutter acute Dyspnea acute Atherosclerotic heart diseas e of [place] coronary artery without angina pectoris chronic Essential hypertension chron ic Presence of stent in coronary artery 2012 chronic Pure hypercholesterolemia ronic Atrial flutter acute Dyspnea acute Atherosclerotic heart diseas e of [place] coronary artery without angina pectoris chronic Essential hypertension chron ic Presence of stent in coronary artery 2012 chronic Pure hypercholesterolemia ronic Atrial flutter acute Dyspnea acute Essential hypertension chron ic Presence of stent in coronary artery 2012 chronic Pure hypercholesterolemia [facility] Work Phone: Evaluation note* Diagnosis Bacterial sinusitis- Primary Unspecified sinusitis (chronic) Adjustment disorder with anxious mood Adjustment disorder with anxiety Essential hypertension, benign Other pulmonary embolism without acute cor pulmonale, unspecified chronicity (HCC) Hyperlipidemia, unspecified hyperlipidemia type Coronary artery disease 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 angina pectoris Sleep apnea, unspecified type Uncomplicated asthma, unspecified asthma severity, unspecified whether persistent Atrial flutter, unspecified type (HCC) Myalgia Mylagia and myositis, unspecified Disorder of bone, unspecified [facility] [place] [facility]* Diagnosis Essential hypertension, benign- Primary History of pulmonary embolism Personal history of pulmonary embolism Coronary artery disease 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 angina pectoris Atrial flutter, unspecified type (HCC) Adjustment disorder with anxious mood Adjustment disorder with anxiety [facility] [place] [facility]* Diagnosis Adjustment disorder with anxious mood Adjustment disorder with anxiety [facility] [place] [facility]* Diagnosis Urinary tract infection with hematuria, site unspecified- Primary Fever, unspecified fever cause Dehydration documented [facility] [place] [facility]* Diagnosis Onset Date Resolution Status Atrial flutter acute Essential hypertension chron ic Presence of stent in coronary artery 2013 chronic Pure hypercholesterolemia ch ronic Complicated urinary tract infection acute Failure of outpatient treatment acute Thrombocytopenia acute [facility] Work Phone: Evaluation note* Diagnosis Urinary tract infection without hematuria, site unspecified- Primary Hypokalemia Hypopotassemia Leukocytosis, unspecified type [facility] [place] [facility]* Diagnosis Hypokalemia Hypopotassemia [facility] [place] [facility] Diagnosis Anxiety with depression- Primary [facility] [place] [facility]* Diagnosis Essential hypertension, benign- Primary Recurrent UTI (urinary tract infection) Urinary tract infection, site not specified Adjustment disorder with anxious mood Adjustment disorder with anxiety Fatigue, unspecified type Atrial flutter, unspecified type (HCC) Coronary artery disease 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 angina pectoris [facility] [place] [facility]* Diagnosis Hypokalemia Hypopotassemia [facility] [place] [facility]* Diagnosis Onset Date Resolution Status 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 Dyslipidemia chronic Essential hypertension chron ic First degree heart block chr onic Morbid obesity with BMI of 40.0-44.9, adult chronic DEENA (obstructive sleep apnea) chronic Paroxysmal atrial flutter ch ronic Thrombocytopenia chronic Preoperative cardiovascular examination noneactive [facility] Work Phone: Evaluation note* Diagnosis GERD with esophagitis [facility] [place] [facility]* Diagnosis Bacterial sinusitis- Primary Unspecified sinusitis (chronic) Testosterone deficiency Other testicular hypofunction Coronary artery disease 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 angina pectoris Atrial flutter, unspecified type (HCC) Hyperlipidemia, unspecified hyperlipidemia type Sleep apnea, unspecified type Uncomplicated asthma, unspecified asthma severity, unspecified whether persistent Gastric intestinal metaplasia Polyarthritis Unspecified polyarthropathy or polyarthritis, site unspecified Spinal stenosis of lumbar region with neurogenic claudication Spinal stenosis, lumbar region, with neurogenic claudication History of pulmonary embolism Personal history of pulmonary embolism Fatigue, unspecified type Acute constipation Unspecified constipation [facility] [place] [facility]* Diagnosis Hyperglycemia- Primary Other abnormal glucose [facility] [place] [facility]* Diagnosis Onset Date Resolution Status 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 Dyslipidemia chronic Essential hypertension chron ic First degree heart block chr onic Morbid obesity with BMI of 40.0-44.9, adult chronic DEENA (obstructive sleep apnea) chronic Paroxysmal atrial flutter ch ronic Thrombocytopenia chronic Preoperative cardiovascular examination noneactive Pre-syncope acute 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 Dyslipidemia chronic Essential hypertension chron ic First degree heart block chr onic Morbid obesity with BMI of 40.0-44.9, adult chronic DEENA (obstructive sleep apnea) chronic Paroxysmal atrial flutter ch ronic Thrombocytopenia chronic [facility] Work Phone: Evaluation note* Diagnosis ADHD (attention deficit hyperactivity disorder), combined type- Primary Attention deficit disorder with hyperactivity [facility] [place] [facility]* Diagnosis ADHD (attention deficit hyperactivity disorder), combined type- Primary Attention deficit disorder with hyperactivity Need for vaccination Need for prophylactic vaccination and inoculation against unspecified single disease [facility] [place] [facility]* Diagnosis Hypokalemia Hypopotassemia [facility] [place] [facility]* Diagnosis Chest pain on breathing- Primary Painful respiration Sinobronchitis Unspecified sinusitis (chronic) Hypokalemia Hypopotassemia [facility] [place] [facility]* Diagnosis Chronic cough- Primary Cough Chest pain on breathing Painful respiration [facility] Diagnosis Bronchitis- Primary Bronchitis, not specified as acute or chronic Atrial flutter, unspecified type (HCC) Uncomplicated asthma, unspecified asthma severity, unspecified whether persistent Fatigue, unspecified type [facility] [place] [facility]* Diagnosis COVID-19- Primary [facility] [place] [facility]* Diagnosis Pain of left heel Pain in limb Pre-operative examination- Primary Preoperative examination, unspecified Adrenal nodule (HCC) Unspecified disorder of adrenal glands Uncomplicated asthma, unspecified asthma severity, unspecified whether persistent Atrial flutter, unspecified type (HCC) Coronary artery disease 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 angina pectoris Gastroesophageal reflux disease, unspecified whether esophagitis present Essential hypertension, benign History of pulmonary embolism Personal history of pulmonary embolism Hyperlipidemia, unspecified hyperlipidemia type Lung nodule Solitary pulmonary nodule Spinal stenosis of lumbar region with neurogenic claudication Spinal stenosis, lumbar region, with neurogenic claudication Sleep apnea, unspecified type Hypokalemia Hypopotassemia Morbid obesity (HCC) Morbid obesity Former tobacco use Personal history of tobacco use, presenting hazards to health History of TIAs Transient ischemic attack (TIA), and 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 residual deficits Other polyneuropathy [facility] [place] [facility]* Diagnosis Pre-operative examination- Primary Preoperative examination, unspecified Adrenal nodule (HCC) Unspecified disorder of adrenal glands Uncomplicated asthma, unspecified asthma severity, unspecified whether persistent Atrial flutter, unspecified type (HCC) Coronary artery disease 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 angina pectoris Gastroesophageal reflux disease, unspecified whether esophagitis present Essential hypertension, benign History of pulmonary embolism Personal history of pulmonary embolism Hyperlipidemia, unspecified hyperlipidemia type Lung nodule Solitary pulmonary nodule Spinal stenosis of lumbar region with neurogenic claudication Spinal stenosis, lumbar region, with neurogenic claudication Sleep apnea, unspecified type Hypokalemia Hypopotassemia Morbid obesity (HCC) Morbid obesity Former tobacco use Personal history of tobacco use, presenting hazards to health History of TIAs Transient ischemic attack (TIA), and 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 residual deficits Other polyneuropathy Coronary artery disease 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 angina pectoris- Primary Hyperlipidemia, unspecified hyperlipidemia type Presence of stent in coronary artery Postsurgical percutaneous transluminal coronary angioplasty status Sleep apnea, unspecified type Uncomplicated asthma, unspecified asthma severity, unspecified whether persistent History of pulmonary embolism Personal history of pulmonary embolism History of TIAs Transient ischemic attack (TIA), and 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 residual deficits Gastroesophageal reflux disease, unspecified whether esophagitis present Diarrhea, unspecified type LLQ pain Abdominal pain, left lower quadrant Chronic RLQ pain Abdominal pain, right lower quadrant Left lower quadrant abdominal pain Left lower quadrant abdominal pain documented in this encounter [facility] note* Diagnosis Pre-operative examination- Primary Preoperative examination, unspecified Adrenal nodule (HCC) Unspecified disorder of adrenal glands Uncomplicated asthma, unspecified asthma severity, unspecified whether persistent Atrial flutter, unspecified type (HCC) Coronary artery disease 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 angina pectoris Gastroesophageal reflux disease, unspecified whether esophagitis present Essential hypertension, benign History of pulmonary embolism Personal history of pulmonary embolism Hyperlipidemia, unspecified hyperlipidemia type Lung nodule Solitary pulmonary nodule Spinal stenosis of lumbar region with neurogenic claudication Spinal stenosis, lumbar region, with neurogenic claudication Sleep apnea, unspecified type Hypokalemia Hypopotassemia Morbid obesity (HCC) Morbid obesity Former tobacco use Personal history of tobacco use, presenting hazards to health History of TIAs Transient ischemic attack (TIA), and 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 residual deficits Other polyneuropathy Left lower quadrant abdominal pain [facility] [place] [facility]* Diagnosis Pre-operative examination- Primary Preoperative examination, unspecified Adrenal nodule (HCC) Unspecified disorder of adrenal glands Uncomplicated asthma, unspecified asthma severity, unspecified whether persistent Atrial flutter, unspecified type (HCC) Coronary artery disease 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 angina pectoris Gastroesophageal reflux disease, unspecified whether esophagitis present Essential hypertension, benign History of pulmonary embolism Personal history of pulmonary embolism Hyperlipidemia, unspecified hyperlipidemia type Lung nodule Solitary pulmonary nodule Spinal stenosis of lumbar region with neurogenic claudication Spinal stenosis, lumbar region, with neurogenic claudication Sleep apnea, unspecified type Hypokalemia Hypopotassemia Morbid obesity (HCC) Morbid obesity Former tobacco use Personal history of tobacco use, presenting hazards to health History of TIAs Transient ischemic attack (TIA), and 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 residual deficits Other polyneuropathy LLQ pain- Primary Abdominal pain, left lower quadrant RLQ abdominal pain Abdominal pain, right lower quadrant Diarrhea, unspecified type [facility] [place] [facility]* Diagnosis Pain Generalized pain Pre-operative examination- Primary Preoperative examination, unspecified Adrenal nodule (HCC) Unspecified disorder of adrenal glands Uncomplicated asthma, unspecified asthma severity, unspecified whether persistent Atrial flutter, unspecified type (HCC) Coronary artery disease 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 angina pectoris Gastroesophageal reflux disease, unspecified whether esophagitis present Essential hypertension, benign History of pulmonary embolism Personal history of pulmonary embolism Hyperlipidemia, unspecified hyperlipidemia type Lung nodule Solitary pulmonary nodule Spinal stenosis of lumbar region with neurogenic claudication Spinal stenosis, lumbar region, with neurogenic claudication Sleep apnea, unspecified type Hypokalemia Hypopotassemia Morbid obesity (HCC) Morbid obesity Former tobacco use Personal history of tobacco use, presenting hazards to health History of TIAs Transient ischemic attack (TIA), and 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 residual deficits Other polyneuropathy [facility] [place] [facility]* Diagnosis Other pulmonary embolism without acute cor pulmonale, unspecified chronicity (HCC) Chest pain, unspecified type Pre-operative examination- Primary Preoperative examination, unspecified Adrenal nodule (HCC) Unspecified disorder of adrenal glands Uncomplicated asthma, unspecified asthma severity, unspecified whether persistent Atrial flutter, unspecified type (HCC) Coronary artery disease 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 angina pectoris Gastroesophageal reflux disease, unspecified whether esophagitis present Essential hypertension, benign History of pulmonary embolism Personal history of pulmonary embolism Hyperlipidemia, unspecified hyperlipidemia type Lung nodule Solitary pulmonary nodule Spinal stenosis of lumbar region with neurogenic claudication Spinal stenosis, lumbar region, with neurogenic claudication Sleep apnea, unspecified type Hypokalemia Hypopotassemia Morbid obesity (HCC) Morbid obesity Former tobacco use Personal history of tobacco use, presenting hazards to health History of TIAs Transient ischemic attack (TIA), and 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 residual deficits Other polyneuropathy [facility] [place] [facility]* Diagnosis Pain of right heel Pain in limb Pre-operative examination- Primary Preoperative examination, unspecified Adrenal nodule (HCC) Unspecified disorder of adrenal glands Uncomplicated asthma, unspecified asthma severity, unspecified whether persistent Atrial flutter, unspecified type (HCC) Coronary artery disease 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 angina pectoris Gastroesophageal reflux disease, unspecified whether esophagitis present Essential hypertension, benign History of pulmonary embolism Personal history of pulmonary embolism Hyperlipidemia, unspecified hyperlipidemia type Lung nodule Solitary pulmonary nodule Spinal stenosis of lumbar region with neurogenic claudication Spinal stenosis, lumbar region, with neurogenic claudication Sleep apnea, unspecified type Hypokalemia Hypopotassemia Morbid obesity (HCC) Morbid obesity Former tobacco use Personal history of tobacco use, presenting hazards to health History of TIAs Transient ischemic attack (TIA), and 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 residual deficits Other polyneuropathy [facility] [place] [facility]* Diagnosis Pre-operative examination- Primary Preoperative examination, unspecified Adrenal nodule (HCC) Unspecified disorder of adrenal glands Uncomplicated asthma, unspecified asthma severity, unspecified whether persistent Atrial flutter, unspecified type (HCC) Coronary artery disease 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 angina pectoris Gastroesophageal reflux disease, unspecified whether esophagitis present Essential hypertension, benign History of pulmonary embolism Personal history of pulmonary embolism Hyperlipidemia, unspecified hyperlipidemia type Lung nodule Solitary pulmonary nodule Spinal stenosis of lumbar region with neurogenic claudication Spinal stenosis, lumbar region, with neurogenic claudication Sleep apnea, unspecified type Hypokalemia Hypopotassemia Morbid obesity (HCC) Morbid obesity Former tobacco use Personal history of tobacco use, presenting hazards to health History of TIAs Transient ischemic attack (TIA), and 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 residual deficits Other polyneuropathy Viral URI with cough- Primary Acute upper respiratory infections of unspecified site Uncomplicated asthma, unspecified asthma severity, unspecified whether persistent [facility] [place] [facility]* Diagnosis Pre-operative examination- Primary Preoperative examination, unspecified Adrenal nodule (HCC) Unspecified disorder of adrenal glands Uncomplicated asthma, unspecified asthma severity, unspecified whether persistent Atrial flutter, unspecified type (HCC) Coronary artery disease 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 angina pectoris Gastroesophageal reflux disease, unspecified whether esophagitis present Essential hypertension, benign History of pulmonary embolism Personal history of pulmonary embolism Hyperlipidemia, unspecified hyperlipidemia type Lung nodule Solitary pulmonary nodule Spinal stenosis of lumbar region with neurogenic claudication Spinal stenosis, lumbar region, with neurogenic claudication Sleep apnea, unspecified type Hypokalemia Hypopotassemia Morbid obesity (HCC) Morbid obesity Former tobacco use Personal history of tobacco use, presenting hazards to health History of TIAs Transient ischemic attack (TIA), and 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 residual deficits Other polyneuropathy Dizziness- Primary Dizziness and giddiness Acute cough Generalized weakness Other malaise and fatigue SOB (shortness of breath) Shortness of breath Acute cough SOB (shortness of breath) Shortness of breath [facility] [place] [facility]* Diagnosis Pre-operative examination- Primary Preoperative examination, unspecified Adrenal nodule (HCC) Unspecified disorder of adrenal glands Uncomplicated asthma, unspecified asthma severity, unspecified whether persistent Atrial flutter, unspecified type (HCC) Coronary artery disease 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 angina pectoris Gastroesophageal reflux disease, unspecified whether esophagitis present Essential hypertension, benign History of pulmonary embolism Personal history of pulmonary embolism Hyperlipidemia, unspecified hyperlipidemia type Lung nodule Solitary pulmonary nodule Spinal stenosis of lumbar region with neurogenic claudication Spinal stenosis, lumbar region, with neurogenic claudication Sleep apnea, unspecified type Hypokalemia Hypopotassemia Morbid obesity (HCC) Morbid obesity Former tobacco use Personal history of tobacco use, presenting hazards to health History of TIAs Transient ischemic attack (TIA), and 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 residual deficits Other polyneuropathy Acute cough SOB (shortness of breath) Shortness of breath [facility] [place] [facility]* Diagnosis Pre-operative examination- Primary Preoperative examination, unspecified Adrenal nodule (HCC) Unspecified disorder of adrenal glands Uncomplicated asthma, unspecified asthma severity, unspecified whether persistent Atrial flutter, unspecified type (HCC) Coronary artery disease 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 angina pectoris Gastroesophageal reflux disease, unspecified whether esophagitis present Essential hypertension, benign History of pulmonary embolism Personal history of pulmonary embolism Hyperlipidemia, unspecified hyperlipidemia type Lung nodule Solitary pulmonary nodule Spinal stenosis of lumbar region with neurogenic claudication Spinal stenosis, lumbar region, with neurogenic claudication Sleep apnea, unspecified type Hypokalemia Hypopotassemia Morbid obesity (HCC) Morbid obesity Former tobacco use Personal history of tobacco use, presenting hazards to health History of TIAs Transient ischemic attack (TIA), and 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 residual deficits Other polyneuropathy Elevated blood sugar- Primary Other abnormal glucose [facility] [place] [facility]* Diagnosis Pre-operative examination- Primary Preoperative examination, unspecified Adrenal nodule (HCC) Unspecified disorder of adrenal glands Uncomplicated asthma, unspecified asthma severity, unspecified whether persistent Atrial flutter, unspecified type (HCC) Coronary artery disease 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 angina pectoris Gastroesophageal reflux disease, unspecified whether esophagitis present Essential hypertension, benign History of pulmonary embolism Personal history of pulmonary embolism Hyperlipidemia, unspecified hyperlipidemia type Lung nodule Solitary pulmonary nodule Spinal stenosis of lumbar region with neurogenic claudication Spinal stenosis, lumbar region, with neurogenic claudication Sleep apnea, unspecified type Hypokalemia Hypopotassemia Morbid obesity (HCC) Morbid obesity Former tobacco use Personal history of tobacco use, presenting hazards to health History of TIAs Transient ischemic attack (TIA), and 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 residual deficits Other polyneuropathy Rhinosinusitis- Primary Unspecified sinusitis (chronic) [facility] [place] [facility]* Diagnosis Pre-operative examination- Primary Preoperative examination, unspecified Adrenal nodule (HCC) Unspecified disorder of adrenal glands Uncomplicated asthma, unspecified asthma severity, unspecified whether persistent Atrial flutter, unspecified type (HCC) Coronary artery disease 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 angina pectoris Gastroesophageal reflux disease, unspecified whether esophagitis present Essential hypertension, benign History of pulmonary embolism Personal history of pulmonary embolism Hyperlipidemia, unspecified hyperlipidemia type Lung nodule Solitary pulmonary nodule Spinal stenosis of lumbar region with neurogenic claudication Spinal stenosis, lumbar region, with neurogenic claudication Sleep apnea, unspecified type Hypokalemia Hypopotassemia Morbid obesity (HCC) Morbid obesity Former tobacco use Personal history of tobacco use, presenting hazards to health History of TIAs Transient ischemic attack (TIA), and 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 residual deficits Other polyneuropathy Bronchitis- Primary Bronchitis, not specified as acute or chronic Sinobronchitis Unspecified sinusitis (chronic) Bronchitis Bronchitis, not specified as acute or chronic [facility] [place] [facility]* Diagnosis Pre-operative examination- Primary Preoperative examination, unspecified Adrenal nodule (HCC) Unspecified disorder of adrenal glands Uncomplicated asthma, unspecified asthma severity, unspecified whether persistent Atrial flutter, unspecified type (HCC) Coronary artery disease 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 angina pectoris Gastroesophageal reflux disease, unspecified whether esophagitis present Essential hypertension, benign History of pulmonary embolism Personal history of pulmonary embolism Hyperlipidemia, unspecified hyperlipidemia type Lung nodule Solitary pulmonary nodule Spinal stenosis of lumbar region with neurogenic claudication Spinal stenosis, lumbar region, with neurogenic claudication Sleep apnea, unspecified type Hypokalemia Hypopotassemia Morbid obesity (HCC) Morbid obesity Former tobacco use Personal history of tobacco use, presenting hazards to health History of TIAs Transient ischemic attack (TIA), and 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 residual deficits Other polyneuropathy Bronchitis Bronchitis, not specified as acute or chronic [facility] [place] [facility]* Diagnosis Pre-operative examination- Primary Preoperative examination, unspecified Adrenal nodule (HCC) Unspecified disorder of adrenal glands Uncomplicated asthma, unspecified asthma severity, unspecified whether persistent Atrial flutter, unspecified type (HCC) Coronary artery disease 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 angina pectoris Gastroesophageal reflux disease, unspecified whether esophagitis present Essential hypertension, benign History of pulmonary embolism Personal history of pulmonary embolism Hyperlipidemia, unspecified hyperlipidemia type Lung nodule Solitary pulmonary nodule Spinal stenosis of lumbar region with neurogenic claudication Spinal stenosis, lumbar region, with neurogenic claudication Sleep apnea, unspecified type Hypokalemia Hypopotassemia Morbid obesity (HCC) Morbid obesity Former tobacco use Personal history of tobacco use, presenting hazards to health History of TIAs Transient ischemic attack (TIA), and 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 residual deficits Other polyneuropathy Bacterial pneumonia- Primary Bacterial pneumonia, unspecified Hemoptysis Hemoptysis, unspecified History of pulmonary embolism Personal history of pulmonary embolism SOB (shortness of breath) Shortness of breath [facility] [place] [facility]* Diagnosis Pre-operative examination- Primary Preoperative examination, unspecified Adrenal nodule (HCC) Unspecified disorder of adrenal glands Uncomplicated asthma, unspecified asthma severity, unspecified whether persistent Atrial flutter, unspecified type (HCC) Coronary artery disease 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 angina pectoris Gastroesophageal reflux disease, unspecified whether esophagitis present Essential hypertension, benign History of pulmonary embolism Personal history of pulmonary embolism Hyperlipidemia, unspecified hyperlipidemia type Lung nodule Solitary pulmonary nodule Spinal stenosis of lumbar region with neurogenic claudication Spinal stenosis, lumbar region, with neurogenic claudication Sleep apnea, unspecified type Hypokalemia Hypopotassemia Morbid obesity (HCC) Morbid obesity Former tobacco use Personal history of tobacco use, presenting hazards to health History of TIAs Transient ischemic attack (TIA), and 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 residual deficits Other polyneuropathy Hyperglycemia- Primary Other abnormal glucose Hypokalemia Hypopotassemia [facility] [place] [facility]* Diagnosis Pre-operative examination- Primary Preoperative examination, unspecified Adrenal nodule (HCC) Unspecified disorder of adrenal glands Uncomplicated asthma, unspecified asthma severity, unspecified whether persistent Atrial flutter, unspecified type (HCC) Coronary artery disease 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 angina pectoris Gastroesophageal reflux disease, unspecified whether esophagitis present Essential hypertension, benign History of pulmonary embolism Personal history of pulmonary embolism Hyperlipidemia, unspecified hyperlipidemia type Lung nodule Solitary pulmonary nodule Spinal stenosis of lumbar region with neurogenic claudication Spinal stenosis, lumbar region, with neurogenic claudication Sleep apnea, unspecified type Hypokalemia Hypopotassemia Morbid obesity (HCC) Morbid obesity Former tobacco use Personal history of tobacco use, presenting hazards to health History of TIAs Transient ischemic attack (TIA), and 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 residual deficits Other polyneuropathy Hypokalemia Hypopotassemia documented in this encounter [facility] note* Diagnosis Pre-operative examination- Primary Preoperative examination, unspecified Adrenal nodule (HCC) Unspecified disorder of adrenal glands Uncomplicated asthma, unspecified asthma severity, unspecified whether persistent Atrial flutter, unspecified type (HCC) Coronary artery disease 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 angina pectoris Gastroesophageal reflux disease, unspecified whether esophagitis present Essential hypertension, benign History of pulmonary embolism Personal history of pulmonary embolism Hyperlipidemia, unspecified hyperlipidemia type Lung nodule Solitary pulmonary nodule Spinal stenosis of lumbar region with neurogenic claudication Spinal stenosis, lumbar region, with neurogenic claudication Sleep apnea, unspecified type Hypokalemia Hypopotassemia Morbid obesity (HCC) Morbid obesity Former tobacco use Personal history of tobacco use, presenting hazards to health History of TIAs Transient ischemic attack (TIA), and 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 residual deficits Other polyneuropathy Bacterial pneumonia- Primary Bacterial pneumonia, unspecified Atrial flutter, unspecified type (HCC) Hyperglycemia Other abnormal glucose Hypokalemia Hypopotassemia [facility] [place] [facility]* Diagnosis Pre-operative examination- Primary Preoperative examination, unspecified Adrenal nodule (HCC) Unspecified disorder of adrenal glands Uncomplicated asthma, unspecified asthma severity, unspecified whether persistent Atrial flutter, unspecified type (HCC) Coronary artery disease 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 angina pectoris Gastroesophageal reflux disease, unspecified whether esophagitis present Essential hypertension, benign History of pulmonary embolism Personal history of pulmonary embolism Hyperlipidemia, unspecified hyperlipidemia type Lung nodule Solitary pulmonary nodule Spinal stenosis of lumbar region with neurogenic claudication Spinal stenosis, lumbar region, with neurogenic claudication Sleep apnea, unspecified type Hypokalemia Hypopotassemia Morbid obesity (HCC) Morbid obesity Former tobacco use Personal history of tobacco use, presenting hazards to health History of TIAs Transient ischemic attack (TIA), and 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 residual deficits Other polyneuropathy Bacterial pneumonia Bacterial pneumonia, unspecified [facility] [place] [facility]* Diagnosis Pre-operative examination- Primary Preoperative examination, unspecified Adrenal nodule (HCC) Unspecified disorder of adrenal glands Uncomplicated asthma, unspecified asthma severity, unspecified whether persistent Atrial flutter, unspecified type (HCC) Coronary artery disease 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 angina pectoris Gastroesophageal reflux disease, unspecified whether esophagitis present Essential hypertension, benign History of pulmonary embolism Personal history of pulmonary embolism Hyperlipidemia, unspecified hyperlipidemia type Lung nodule Solitary pulmonary nodule Spinal stenosis of lumbar region with neurogenic claudication Spinal stenosis, lumbar region, with neurogenic claudication Sleep apnea, unspecified type Hypokalemia Hypopotassemia Morbid obesity (HCC) Morbid obesity Former tobacco use Personal history of tobacco use, presenting hazards to health History of TIAs Transient ischemic attack (TIA), and 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 residual deficits Other polyneuropathy Essential hypertension, benign [facility] [place] [facility]* Diagnosis Pre-operative examination- Primary Preoperative examination, unspecified Adrenal nodule (HCC) Unspecified disorder of adrenal glands Uncomplicated asthma, unspecified asthma severity, unspecified whether persistent Atrial flutter, unspecified type (HCC) Coronary artery disease 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 angina pectoris Gastroesophageal reflux disease, unspecified whether esophagitis present Essential hypertension, benign History of pulmonary embolism Personal history of pulmonary embolism Hyperlipidemia, unspecified hyperlipidemia type Lung nodule Solitary pulmonary nodule Spinal stenosis of lumbar region with neurogenic claudication Spinal stenosis, lumbar region, with neurogenic claudication Sleep apnea, unspecified type Hypokalemia Hypopotassemia Morbid obesity (HCC) Morbid obesity Former tobacco use Personal history of tobacco use, presenting hazards to health History of TIAs Transient ischemic attack (TIA), and 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 residual deficits Other polyneuropathy Coronary artery disease 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 angina pectoris- Primary Hyperlipidemia, unspecified hyperlipidemia type Atrial flutter, unspecified type (HCC) Sleep apnea, unspecified type Gastric intestinal metaplasia History of pulmonary embolism Personal history of pulmonary embolism History of asthma Personal history of other diseases of respiratory system Fatigue, unspecified type [facility] [place] [facility]* Diagnosis Pre-operative examination- Primary Preoperative examination, unspecified Adrenal nodule (HCC) Unspecified disorder of adrenal glands Uncomplicated asthma, unspecified asthma severity, unspecified whether persistent (HCC) Atrial flutter, unspecified type (HCC) Coronary artery disease 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 angina pectoris Gastroesophageal reflux disease, unspecified whether esophagitis present Essential hypertension, benign History of pulmonary embolism Personal history of pulmonary embolism Hyperlipidemia, unspecified hyperlipidemia type Lung nodule Solitary pulmonary nodule Spinal stenosis of lumbar region with neurogenic claudication Spinal stenosis, lumbar region, with neurogenic claudication Sleep apnea, unspecified type Hypokalemia Hypopotassemia Morbid obesity (HCC) Morbid obesity Former tobacco use Personal history of tobacco use, presenting hazards to health History of TIAs Transient ischemic attack (TIA), and 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 residual deficits Other polyneuropathy Thrombocytopenia- Primary Thrombocytopenia, unspecified [facility] [place] [facility]* Diagnosis Pre-operative examination- Primary Preoperative examination, unspecified Adrenal nodule (HCC) Unspecified disorder of adrenal glands Uncomplicated asthma, unspecified asthma severity, unspecified whether persistent (HCC) Atrial flutter, unspecified type (HCC) Coronary artery disease 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 angina pectoris Gastroesophageal reflux disease, unspecified whether esophagitis present Essential hypertension, benign History of pulmonary embolism Personal history of pulmonary embolism Hyperlipidemia, unspecified hyperlipidemia type Lung nodule Solitary pulmonary nodule Spinal stenosis of lumbar region with neurogenic claudication Spinal stenosis, lumbar region, with neurogenic claudication Sleep apnea, unspecified type Hypokalemia Hypopotassemia Morbid obesity (HCC) Morbid obesity Former tobacco use Personal history of tobacco use, presenting hazards to health History of TIAs Transient ischemic attack (TIA), and 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 residual deficits Other polyneuropathy Attention deficit disorder, unspecified type- Primary Anxiety with depression Essential hypertension, benign [facility] [place] note* Diagnosis Pre-operative examination- Primary Preoperative examination, unspecified Adrenal nodule (HCC) Unspecified disorder of adrenal glands Uncomplicated asthma, unspecified asthma severity, unspecified whether persistent (HCC) Atrial flutter, unspecified type (HCC) Coronary artery disease 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 angina pectoris Gastroesophageal reflux disease, unspecified whether esophagitis present Essential hypertension, benign History of pulmonary embolism Personal history of pulmonary embolism Hyperlipidemia, unspecified hyperlipidemia type Lung nodule Solitary pulmonary nodule Spinal stenosis of lumbar region with neurogenic claudication Spinal stenosis, lumbar region, with neurogenic claudication Sleep apnea, unspecified type Hypokalemia Hypopotassemia Morbid obesity (HCC) Morbid obesity Former tobacco use Personal history of tobacco use, presenting hazards to health History of TIAs Transient ischemic attack (TIA), and 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 residual deficits Other polyneuropathy Attention deficit disorder, unspecified type Anxiety with depression documented in this encounter [facility] note* Diagnosis Pre-operative examination- Primary Preoperative examination, unspecified Adrenal nodule (HCC) Unspecified disorder of adrenal glands Uncomplicated asthma, unspecified asthma severity, unspecified whether persistent (HCC) Atrial flutter, unspecified type (HCC) Coronary artery disease 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 angina pectoris Gastroesophageal reflux disease, unspecified whether esophagitis present Essential hypertension, benign History of pulmonary embolism Personal history of pulmonary embolism Hyperlipidemia, unspecified hyperlipidemia type Lung nodule Solitary pulmonary nodule Spinal stenosis of lumbar region with neurogenic claudication Spinal stenosis, lumbar region, with neurogenic claudication Sleep apnea, unspecified type Hypokalemia Hypopotassemia Morbid obesity (HCC) Morbid obesity Former tobacco use Personal history of tobacco use, presenting hazards to health History of TIAs Transient ischemic attack (TIA), and 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 residual deficits Other polyneuropathy GERD with esophagitis [facility]* Diagnosis Pre-operative examination- Primary Preoperative examination, unspecified Adrenal nodule (HCC) Unspecified disorder of adrenal glands Uncomplicated asthma, unspecified asthma severity, unspecified whether persistent (HCC) Atrial flutter, unspecified type (HCC) Coronary artery disease 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 angina pectoris Gastroesophageal reflux disease, unspecified whether esophagitis present Essential hypertension, benign History of pulmonary embolism Personal history of pulmonary embolism Hyperlipidemia, unspecified hyperlipidemia type Lung nodule Solitary pulmonary nodule Spinal stenosis of lumbar region with neurogenic claudication Spinal stenosis, lumbar region, with neurogenic claudication Sleep apnea, unspecified type Hypokalemia Hypopotassemia Morbid obesity (HCC) Morbid obesity Former tobacco use Personal history of tobacco use, presenting hazards to health History of TIAs Transient ischemic attack (TIA), and 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 residual deficits Other polyneuropathy Attention deficit disorder, unspecified type- Primary Anxiety with depression Thrombocytopenia Thrombocytopenia, unspecified [facility] [place] [facility]* Diagnosis Pre-operative examination- Primary Preoperative examination, unspecified Adrenal nodule (HCC) Unspecified disorder of adrenal glands Uncomplicated asthma, unspecified asthma severity, unspecified whether persistent (HCC) Atrial flutter, unspecified type (HCC) Coronary artery disease 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 angina pectoris Gastroesophageal reflux disease, unspecified whether esophagitis present Essential hypertension, benign History of pulmonary embolism Personal history of pulmonary embolism Hyperlipidemia, unspecified hyperlipidemia type Lung nodule Solitary pulmonary nodule Spinal stenosis of lumbar region with neurogenic claudication Spinal stenosis, lumbar region, with neurogenic claudication Sleep apnea, unspecified type Hypokalemia Hypopotassemia Morbid obesity (HCC) Morbid obesity Former tobacco use Personal history of tobacco use, presenting hazards to health History of TIAs Transient ischemic attack (TIA), and 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 residual deficits Other polyneuropathy Bronchitis- Primary Bronchitis, not specified as acute or chronic SOB (shortness of breath) Shortness of breath Acute cough [facility] Author Lucy Partida [facility] December 15, 2022 10:52pm Note Date/Time December 15, 2022 10:1 [facility] [address] [place] [address] H&P Exam - Hospitalist 12/15/22 2210 MR#: [id number] Acct: [id number] Name: LAZARO GARZON Rep #:[id number] 1955 67 From: Lucy Partida MD PCP: Dr. Jagjit Cheema MD Status:ADM I N Location: [place] [address] HPI - General General Date of Admission: 12/15/22 Date of Service: 12/15/22 Chief Complaint: Recent UTI Dx, ongoing fevers, chills. HPI Narrative The patient is a 67 y/o M w/ PMHx: Hx DVT/PE, PAF/Flutter, Chronic thrombocytopenia, DEENA on CPAP q HS, Former tobacco use, CAD s/p PCI, HTN, HLD, GERD, Fibromyalgia, BPH, Hx TIA, Obesity who presents to the [facility] ED on 12/15/22 with history of intial ED evaluation on 12/14/2022 with recent PCP evaluation andreferral for concern of UTI and weakness with persistent fever, general malaise noted to have been feeling poorly for the last 2 to 3 days with urine apparentlyconsistent with a urinary tract infection at PCP office with decreased appetite as well as poor oral intake with mild complaint of dyspnea but no significant cough, suprapubic abdominal discomfort as well as flank discomfort with CBC withWC 15.8 with left shift, chemistry with a BUN/creatinine 15/1.35 only mildly above baseline, potassium 3.0 which was supplemented, lactic acid 1.4, hepatic profile with T. bili 2.3 otherwise unremarkable, urinalysis with evidence of UTIwith urine culture pending, chest x-ray with a small region of atelectasis but no focal infiltrate, CT flank with noted stable left adrenal lesion and right renal cyst as well as liver cyst placed Macrobid given history of sensitivity tothis agent in the past and discharged to home now representing secondary to persistent fevers up to 104 at home with onset of chills and ongoing persistent dysuria with no associated hematuria prompting repeat ED assessment. Patient notes that his fever has been responsive to Tylenol therapy. Work-up in the ED included initially T98 with most recent repeat T101.8, BP 140/69, respiratory rate 24, 98% on room air, CBC with WC 4.3 notably improved from day prior, hemoglobin 14.4, platelet 87 with neutrophil 90.2% mildly increased from day prior and lymphopenia, unremarkable coags, CMP with sodium 135, potassium 3.3, BUN/creatinine 17/1.36, glucose 131, lactic acid 1.7, hepatic profile with T. bili 1.40 otherwise unremarkable, chest x-ray with chronic changes with no evidence of acute cardiopulmonary findings, rapid SARS COVID and influenza antigen negative. Patient of note from review of records with prior evidence E.coli ESBL urinary tract infection with decent resistant patterns. In the ED patient ministered 1 L normal saline, Tylenol 1000 mg p.o. x1, Rocephin 1 g IV x1, Zofran 4 mg IV x1. [facility] Medical History Abnormal myocardial perfusion study Abnormal stress test Acute pyelonephritis Atherosclerotic heart disease of salamatof coronary artery without angina pectoris BPH (benign prostatic hyperplasia) Claudication Confusion Dyspnea on exertion Essential hypertension Fibromyalgia GERD (gastroesophageal reflux disease) H/O percutaneous transluminal coronary angioplasty History of shingles HTN (hypertension) Obesity DEENA (obstructive sleep apnea) Prostate enlargement Pulmonary embolism Pure hypercholesterolemia Rectal bleeding Testosterone deficiency TIA (transient ischemic attack) Unstable angina UTI (urinary tract infection) Home Medications multivitamin,[id number] 27 mg-0.4 mg tablet 1 tab PO DAILY supplement 12/10/13 [History Last Taken 02/29/20] albuterol sulfate 90 mcg/actuation aerosol inhaler 1 - 2 puff inhalation Q6H PRNPRN Asthma 07/08/19 [History Last Taken 02/08/20] esomeprazole magnesium 20 mg capsule,delayed release (Nexium) 40 mg PO DAILY 10/01/20 [History Last Taken Unknown] atorvastatin 20 mg tablet 20 mg PO QHS #90 tabs 11/19/20 [Rx Last Taken Unknown] allopurinol 300 mg tablet 300 mg PO DAILY 10/20/21 [History Last Taken Unknown] potassium chloride 10 mEq tablet,extended release 20 meq PO DAILY 11/23/21 [History Last Taken Unknown] testosterone 4 pump transdermal DAILY 11/23/21 [History Last Taken Unknown] losartan 25 mg tablet 25 mg PO DAILY #90 tabs 03/03/22 [Rx Last Taken 08/09/22] tamsulosin 0.4 mg capsule 0.4 mg PO DAILY 04/29/22 [History Last Taken Unknown] amlodipine 5 mg tablet 5 mg PO DAILY htn #90 tabs 09/06/22 [Rx Last Taken Unknown] aspirin 325 mg tablet,delayed release 81 mg (0.2492 x 325 mg) PO DAILY #90 tabs 11/07/22 [Rx Last Taken Unknown] nitrofurantoin monohydrate/macrocrystals 100 mg capsule (Macrobid) 100 mg PO BID7 days #14 caps 12/14/22 [Rx Last Taken Unknown] potassium chloride 20 mEq tablet,extended release 40 meq (2 x 20 mEq) PO DAILY #8 tabs 12/14/22 [Rx Last Taken Unknown] Allergy/AdvReac Type Severity Reaction Status Date / Time Sulfa (Sulfonamide Allergy Unknown Verified 12/15/22 18:54 Antibiotics) Family History Mother CAD (coronary artery disease) Hypertension Hx of CABG Father Hypertension Myocardial infarction Grandfather Myocardial infarction paternal Grandmother Cancer pancreatic CA Grandfather CAD (coronary artery disease) Surgical History History of arthroscopy of right knee History of back surgery History of laparoscopic cholecystectomy History of left heart catheterization (LHC) History of PTCA (~08/2012) History of repair of rotator cuff History of tonsillectomy and adenoidectomy History of transurethral resection of prostate Presence of coronary angioplasty implant and graft (~08/2012) Presence of stent in coronary artery (~08/2012) Spinal cord stimulator status (~05/2021) Social History Smoking Status: Former smoker quit date: 06/19/94 pack-years: 42 how long ago did patient quit smokin second hand exposure: No alcohol intake: current alcohol intake frequency: holidays/special occasions only Alcohol type: beer substance use type: does not use caffeine: Yes Type: carbonated beverages, coffee and tea what type of physical activity do you participate in: none ROS ROS Narrative Admission Review of Systems: CONSTITUTIONAL: No weight loss, + fever, chills, weakness or fatigue. HEENT: Eyes: No visual loss, blurred vision, double vision or yellow sclerae. Ears, Nose, Throat: No hearing loss, sneezing, congestion, runny nose or sore throat. SKIN: No rash or itching, lesions, wounds. CARDIOVASCULAR: No chest pain, chest pressure or chest discomfort, palpitations,edema, orthopnea, syncopal events. RESPIRATORY: + Intermittent nonproductive cough, occasional shortness of breath,No reported wheezing, hemoptysis. GASTROINTESTINAL: + anorexia, No nausea, vomiting or diarrhea, abdominal pain, melena, BRBPR. GENITOURINARY: + dysuria, frequency, suprapubic discomfort, flank discomfort, Nourgency or retention. NEUROLOGICAL: No headache, dizziness, syncope, paralysis, ataxia, numbness or tingling in the extremities, focal weakness, change in bowel or bladder control,seizure. MUSCULOSKELETAL: + muscle, back pain, joint pain or stiffness. HEMATOLOGIC: No anemia, bleeding or bruising. LYMPHATICS: No enlarged nodes. No history of splenectomy. PSYCHIATRIC: No history of depression or anxiety. ENDOCRINOLOGIC: + reports of sweating, cold or heat intolerance. No polyuria or polydipsia. ALLERGIES: No history of asthma, hives, eczema or rhinitis. Vital Signs Vital Signs Vital Signs: 12/15/22 18:54 12/15/22 19:07 12/15/22 19:07 Temperature 98 F 99 F Temperature Source Temporal Oral Pulse Rate 98 98 Respiratory Rate 24 H 24 H Respiratory Effort Normal Respiratory Pattern Normal Blood Pressure 140/69 H 140/69 H Blood Pressure Mean 92 92 Pulse Ox 98 98 Oxygen Delivery Method Room Air 12/15/22 21:01 Temperature 101.8 F H Temperature Source Oral Pulse Rate Respiratory Rate Respiratory Effort Respiratory Pattern Blood Pressure Blood Pressure Mean Pulse Ox Oxygen Delivery Method Weight Weight: 327 lb 6.4 oz Body Mass Index (BMI) 38.8 Physical Exam Narrative Physical Examination: General: Awake, alert, oriented x 3 and cooperative, laying in the ED bed, mildly diaphoretic, flushed, mildly tachycardic. Skin: Flushed color, normal turgor, no icterus, no cyanosis. HEENT: AT/NC, EOMI, PERRLA, moderately dry MM, no carotid bruits or JVD noted; however, habitus with thickened neck makes evaluation difficult. Lungs: Diminished, distant, likely in part secondary to obese habitus, mild increased respiratory rate but no distress, no rales, ronchi or wheezing. Heart: Mildly tachycardic with regular rhythm; no gallop, rub audible. Abdomen: Soft, obese, NTTP, ND, distant normal BS, difficult to assess HSM givenhabitus. Extremities: No cyanosis, clubbing, or edema. Neurological: Patient awake, alert, oriented as noted, cognitive function intact; pupils equally reactive to light and accommodation, cranial nerves grossly normal, moving all 4 extremities, no focal deficits, strength moderatelyglobally decreased secondary to acute presentation. Psychiatric: Affect appears flat, fatigued, ill-appearing, no acute evidence of depressive or anxiety feelings. Results Lab / Micro Data 12/15/22 19:55 12/15/22 19:55 Labs: Laboratory Results - last 24 hr 12/15/22 19:55: WBC 4.3 L, RBC 4.61, Hgb 14.4, Hct 41.1, MCV 89.2, MCH 31.2, MCHC 35.0, RDW Std Deviation 43.3, RDW Coeff of Lito 13.2, Plt Count 87 L, MPV 11.6, Immature Gran % (Auto) 0.500, Neut % (Auto) 90.2 H, Lymph % (Auto) 4.4 L, [place] % (Auto) 4.0, Eos % (Auto) 0.7, Baso % (Auto) 0.2, Absolute Neuts (auto) 3.9, Absolute Lymphs (auto) 0.19 L, Nucleated RBC % 0, Differential Comment SCANNED, PT 14.9, INR 1.2, APTT 32.2, Sodium 135 L, Potassium 3.3 L, Chloride 105, Carbon Dioxide 21.0, Anion Gap 9, BUN 17, Creatinine 1.36 H, Estim Creat Clear Calc 68.24, Est GFR (MDRD) Af Amer 68, Est GFR (MDRD) Non-Af 56 L, BUN/Creatinine Ratio 12.5, Glucose 131 H, Lactic Acid 1.7, Calcium 8.6, Total Bilirubin 1.40 H, AST 36, ALT 47, Alkaline Phosphatase 77, Total Protein 7.4, Albumin 3.5, Globulin 3.9, Albumin/Globulin Ratio 0.9 Micro: Microbiology 12/15/22 19:55 Nasal Secretion SARS-CoV-2 & FLU Antigen (Rapid) - Final Radiology Impression Chest X-Ray 12/15/22 20:05 IMPRESSION: There are findings consistent with COPD. There is no evidence of acute chest disease. Electronically Signed: Joesph Clark MD at 20:26 EDT , Assessment & Plan Assessment/Plan (1) Complicated urinary tract infection: PLAN: Plan The patient is a 67 y/o M w/ PMHx: Hx DVT/PE, PAF/Flutter, Chronic thrombocytopenia, DEENA on CPAP q HS, Former tobacco use, CAD s/p PCI, HTN, HLD, GERD, Fibromyalgia, BPH, Hx TIA, Obesity who presents to the [facility] ED on 12/15/22 with history of intial ED evaluation on 12/14/2022 with recent PCP evaluation andreferral for concern of UTI placed on Macrobid given history of sensitivity to this agent in the past and discharged to home now representing secondary to persistent fevers up to 104 at home with onset of chills and ongoing persistent dysuria with no associated hematuria prompting repeat ED assessment. #1. Acute Complicated Urinary Tract Infection: Will admit to [facility] upon ED evaluation remarkable, pending UCx, from review of most recent records patient has previously had E. coli ESBL producing organism urinary tract infection with decent resistance patterns, will continue judicious IVFs, monitor I/Os, initiateIV meropenem based on most recent 07/23/2018 culture w/ transition as able pendingsensitivities and speciation. Bld cx x 2 obtained in the ED. Patient did report 6,000 mg total tylenol administration including that administered in the ED following more intensive discussions and given this will hold on tylenol usage and obtain tylenol level now and in AM. Will use motrin for fever at this point. #2. Suspected Underlying Chronic COPD: Chest x-ray with chronic COPD type changes, no obvious infiltrate, underlying history may be etiology for patient'smild cough, no formal diagnosis but history of tobacco usage, will initiate ATC budesonide therapy with PRN albuterol, HOB, IS parameters, if able to produce sputum would certainly send culture and will obtain full respiratory viral panelto assure no concurrent acute viral infection. #3. Mild acute renal insufficiency likely secondary to recent decreased oral intake, dehydration with acute presentation: Admission BUN/creatinine 17/1.36, day prior BUN/creatinine 15/1.35, baseline appears primarily 1.0-1.2 but has been previously up to 1.3, continue judicious hydration, if worsens further would hold patient's losartan but for now very minimally changed from his baseline. #4. Hyperbilirubinemia: Recent 12/14/2022 visit with T. bili elevated at 2.30, repeat today 1.40, LFTs unremarkable, likely related with his recent acute presentation, continue treatments as noted and repeat CMP in AM. #5. Hypokalemia: Admission K+ 3.3, magnesium level requested supplementation given, repeat level in AM. #6. Acute on chronic thrombocytopenia: Patient with previous evidence of thrombocytopenia throughout his history, unclear exact etiology, acute presentation 12/15/2022 with platelet 87, prior to this 138, likely reactive withacute illness, will continue to trend CBC. #7. CAD: Status post PCI LAD 08/2012, most recent repeat catheterization 2017 demonstrating [place]am[place] multivessel coronary disease and a patent LAD stent at thattime, will continue aspirin, statin, losartan, for most recent list not on beta- jacob therapy, unclear exact reason. #8. History of VTE: Patient with prior history of DVT, PE after travel and witha concurrent PICC line treated with NOAC, no longer taking. #9. Paroxysmal atrial flutter/paroxysmal atrial fibrillation: Recent evaluation08/09/2022 with cardioversion from atrial fibrillation/flutter which was successful, recent 11/07/2022 cardiology visit with patient insistence and preference at that time of discontinuation of his anticoagulant therapy secondary to cost and deferral of usage of Coumadin despite discussion of strokerisk but agreement to take daily aspirin 325 mg. #10. Hypertension: Continue home regimen including amlodipine, losartan, PRN hydralazine. #11. Hyperlipidemia: We will continue patient on statin therapy. #12. History TIA: We will continue aspirin, statin, hypertensive regimen as noted #13. BPH: We will continue patient home Flomax regimen. #14. Gout: We will continue patient home allopurinol regimen. #15. Obesity: Weight loss and lifestyle changes encouraged. #16. GERD: We will continue patient home PPI. #17. Former tobacco use: Encourage continued tobacco cessation. #18. DEENA: CPAP nightly. #19. DVT prophylaxis: Lovenox cautiously given concurrent thrombocytopenia as noted above. Admission Evaluation Time spent evaluating chart, patient history, patient evaluation, care planning and discussion with specialists: 75 minutes. Charges/Coding Visit Charges Inpatient E&M: 88818 Init Hosp L3 12/15/22 2252 <Electronically signed by Lucy Partida MD> Cosigner Signature (if applicable): CC: Dr. Lucy Partida MD; Dr. Jagjit Cheema MD~ Signed [facility] Work Phone: [facility] (narrative)* Diagnostic Procedure Only (Urgent) - Closed Specialty Diagnoses / Procedures Referred By Contac t Referred To Contact XR IMAGING Diagnoses Pain of left heel Procedures XR FOOT GENERAL 3V AP/LAT/OBL LEFT RADEX FOOT COMPLETE MINIMUM 3 VIEWS Anabelle Tom APRN.CNP [address] [place] [address] [place] [address] Referral ID Status Reason Start Date Expiration Date V isits Requested Visits Authorized [id number] Closed Auto-Generated Referral Patient Cleared - INN Insurance Found 04/03/2023 05/02/2024 1 1 [facility] for referral (narrative)* Diagnostic Procedure Only (Routine) - Closed Specialty Diagnoses / Procedures Referred By Contac t Referred To Contact XR IMAGING Diagnoses Pain Procedures XR FOOT GENERAL 3V AP/LAT/OBL RIGHT RADEX FOOT COMPLETE MINIMUM 3 VIEWS Oliva Gutierrez PA-C [address] [place] [address] [place] [address] Referral ID Status Reason Start Date Expiration Date V isits Requested Visits Authorized [id number] Closed Auto-Generate d Referral 09/08/2021 10/08/2022 1 1 * Diagnostic Procedure Only (Routine) - Closed Specialty Diagnoses / Procedures Referred By Contac t Referred To Contact XR IMAGING Diagnoses Pain Procedures XR ANKLE GENERAL 3V AP/LAT/OBL RIGHT RADEX ANKLE COMPLETE MINIMUM 3 VIEWS Oliva Gutierrez PA-C [address] [place] [address] [place] [address] Referral ID Status Reason Start Date Expiration Date V isits Requested Visits Authorized [id number] Closed Auto-Generate d Referral 09/08/2021 10/08/2022 1 1 [facility]No reason for referral information [facility]WDay[facility] Work Phone: Reason for visit Narrative* Diagnostic Procedure Only (Urgent) - Closed Specialty Diagnoses / Procedures Referred By Contac t Referred To Contact XR IMAGING Diagnoses Pain of left heel Procedures XR FOOT GENERAL 3V AP/LAT/OBL LEFT RADEX FOOT COMPLETE MINIMUM 3 VIEWS Anabelle Tom, COMFORT.EDGE POLISHER [address] [place] [address] Xr Imaging [id number] Referral ID Status Reason Start Date Expiration Date V isits Requested Visits Authorized [id number] Closed Auto-Generated Referral Patient Cleared - INN Insurance Found 04/03/2023 05/02/2024 1 1 [facility] Summary Purpose Family History Relationship Condition Age at Onset Recorded Date/T shukri mother Coronary artery disease Unknown Hypertension Unknown History of coronary artery bypass surgery Unknown father Hypertension Unknown Myocardial infarction Unknown grandfather Myocardial infarction Unknown grandmother Malignant neoplasm Unknown grandfather Coronary artery disease Unknown Advance Directives Documents on File Type Date Recorded Patient Barrel Inspector Tight Expl anation Advance Directive(s) 07/20/2016 7:44 AM Advance Directive(s) 05/10/2016 5:01 PM Advance Directive(s) 06/05/2012 1:03 PM Advance Directive Response Recorded Date/ Time Advance Directives No April 5:24pm Living Will Yes February 29, 2020 1:43am Power of Supervisor Sign Shop Yes February 1:43am Documents on File Type Date Recorded Patient Barrel Inspector Tight Expl anation Advance Directive(s) 06/05/2012 1:03 PM Advance Directive Response Recorded Date/ Time Name of Medical Power of Supervisor Sign Shop JACQUES Barkley February 12, 2022 11:34am Advance Directives No April 5:24pm Living Will Yes February 12 11:34am Power of Supervisor Sign Shop Yes February 12 11:34am Advance Directive Response Recorded Date/ Time Name of Medical Power of Supervisor Sign Shop JACQUES MENDEZ R, February 12, 2022 10:34am Advance Directives No April 4:24pm Living Will Yes February 12 10:34am Power of Supervisor Sign Shop Yes February 12 10:34am Advance Directive Response Recorded Date/ Time Name of Medical Power of Supervisor Sign Shop JACQUES MENDEZ R, February 12, 2022 10:34am Name of Medical Power of Supervisor Sign Shop Karin Garzon May 07, 2022 11:33am Advance Directives No April 4:24pm Living Will Yes May 07 11:33am Power of Supervisor Sign Shop Yes May 07, 2022 11:33am Advance Directive Response Recorded Date/ Time Name of Medical Power of Supervisor Sign Shop Karin Garzon May 07, 2022 11:33am Advance Directives No April 4:24pm Living Will Yes May 07 11:33am Power of Supervisor Sign Shop Yes May 07, 2022 11:33am Advance Directive Response Recorded Date/ Time Advance Directives No April 5:24pm Living Will No December 15, 2022 7:07pm Power of Supervisor Sign Shop No December 15 7:07pm Advance Directive Response Recorded Date/ Time Advance Directives No April 5:24pm Living Will No December 15, 2022 11:33pm Power of Supervisor Sign Shop No December 15 11:33pm Advance Directive Response Recorded Date/ Time Advance Directives No April 4:24pm Living Will No December 15, 2022 10:33pm Power of Supervisor Sign Shop No December 15 10:33pm Documents on File Type Date Recorded Patient Barrel Inspector Tight Expl anation Advance Directive(s) 06/05/2012 1:03 PM Advance Directive Response Recorded Date/ Time Living Will No December 15, 2022 11:33pm Do you have a Healthcare Power of Supervisor Sign Shop? No December 15, 2022 11:33pm Do you have a [facility] Power of Supervisor Sign Shop? Yes October 28, 2024 10:55am Advance Directives No January 14 10:22am Chief Complaint and Reason for Visit Chief Complaint Cervical spine 6 M FU Reason for Visit Fatigue Atherosclerotic heart disease of [place] coronary artery without angina pectoris Essential hypertension Presence of stent in coronary artery Pure hypercholesterolemia Testosterone deficiency Chief Complaint Cervical spine 6 M FU 6 wk FU Reason for Visit Fatigue Atherosclerotic heart disease of [place] coronary artery without angina pectoris Essential hypertension Presence of stent in coronary artery Pure hypercholesterolemia Testosterone deficiency Fatigue Atherosclerotic heart disease of [place] coronary artery without angina pectoris Essential hypertension Presence of stent in coronary artery Pure hypercholesterolemia Testosterone deficiency Chief Complaint 6 M FU 6 wk FU HEAD Reason for Visit Fatigue Atherosclerotic heart disease of [place] coronary artery without angina pectoris Essential hypertension Presence of stent in coronary artery Pure hypercholesterolemia Testosterone deficiency Fatigue Atherosclerotic heart disease of [place] coronary artery without angina pectoris Essential hypertension Presence of stent in coronary artery Pure hypercholesterolemia Testosterone deficiency Chief Complaint HEAD TWO ORDERING LAURENT/INT LABS AND ORDER PSA Chief Complaint HEAD TWO ORDERING LAURENT/INT LABS AND ORDER PSA 6 M FU Reason for Visit Atrial flutter Dyspnea Atherosclerotic heart disease of [place] coronary artery without angina pectoris Essential hypertension Presence of stent in coronary artery Pure hypercholesterolemia Chief Complaint HEAD TWO ORDERING DEYSIINT LABS AND ORDER PSA 6 M FU Chest pain Reason for Visit Atrial flutter Dyspnea Atherosclerotic heart disease of [place] coronary artery without angina pectoris Essential hypertension Presence of stent in coronary artery Pure hypercholesterolemia Chief Complaint HEAD TWO ORDERING LAURENT/INT LABS AND ORDER PSA 6 M FU Chest pain DYSPNEA AFIB; CAD Reason for Visit Atrial flutter Dyspnea Atherosclerotic heart disease of [place] coronary artery without angina pectoris Essential hypertension Presence of stent in coronary artery Pure hypercholesterolemia Chief Complaint TWO ORDERING LAURENT/IN T LABS AND ORDER PSA 6 M FU Chest pain DYSPNEA AFIB; CAD 1 M FU E ORDER Reason for Visit Atrial flutter Dyspnea Atherosclerotic heart disease of [place] coronary artery without angina pectoris Essential hypertension Presence of stent in coronary artery Pure hypercholesterolemia Atrial flutter Dyspnea Atherosclerotic heart disease of [place] coronary artery without angina pectoris Essential hypertension Presence of stent in coronary artery Pure hypercholesterolemia Chief Complaint TWO ORDERING LAURENT/KEYLA T LABS AND ORDER PSA 6 M FU Chest pain DYSPNEA AFIB; CAD 1 M FU E ORDER UPDATE H&P Atrial fibrillation AFIB Atrial fibrillation Atrial fibrillation Reason for Visit Atrial flutter Dyspnea Atherosclerotic heart disease of [place] coronary artery without angina pectoris Essential hypertension Presence of stent in coronary artery Pure hypercholesterolemia Atrial flutter Dyspnea Atherosclerotic heart disease of [place] coronary artery without angina pectoris Essential hypertension Presence of stent in coronary artery Pure hypercholesterolemia Atrial flutter Dyspnea Essential hypertension Presence of stent in coronary artery Pure hypercholesterolemia Chief Complaint DEGEN LUMBROSACRAL I NTERV DISC/RX HERE 3 M FU WEAKNESS ACUTE COMPLICATED UTI, FAILED OUTPATIENT TREATMENT Reason for Visit Atrial flutter Essential hypertension Presence of stent in coronary artery Pure hypercholesterolemia Complicated urinary tract infection Failure of outpatient treatment Thrombocytopenia Chief Complaint DEGEN LUMBROSACRAL I NTERV DISC/RX HERE 3 M FU WEAKNESS ACUTE COMPLICATED UTI, FAILED OUTPATIENT TREATMENT ACUTE COMPLICATED UTI, FAILED OUTPATIENT TREATMENT Reason for Visit Atrial flutter Essential hypertension Presence of stent in coronary artery Pure hypercholesterolemia Complicated urinary tract infection Failure of outpatient treatment Thrombocytopenia Chief Complaint PARTIAL TEAR OF LEFT ACHILLES. RX HERE Chief Complaint PARTIAL TEAR OF LEFT ACHILLES. RX HERE 6 M FU PREV PFM PT 2 ORDERING DOCTORS/EORDER & PAPER Reason for Visit Coronary artery dise ase Dyslipidemia Essential hypertension First degree heart block Morbid obesity with BMI of 40.0-44.9, adult DEENA (obstructive sleep apnea) Paroxysmal atrial flutter Thrombocytopenia Preoperative cardiovascular examination Chief Complaint 6 M FU PREV PFM PT 2 ORDERING DOCTORS/EORDER & PAPER Feels like going to pass out L.L. INT LABS XRAY Reason for Visit Coronary artery dise ase Dyslipidemia Essential hypertension First degree heart block Morbid obesity with BMI of 40.0-44.9, adult DEENA (obstructive sleep apnea) Paroxysmal atrial flutter Thrombocytopenia Preoperative cardiovascular examination Pre-syncope Coronary artery disease Dyslipidemia Essential hypertension First degree heart block Morbid obesity with BMI of 40.0-44.9, adult DEENA (obstructive sleep apnea) Paroxysmal atrial flutter Thrombocytopenia Chief Complaint Admit Date 6 M FU August 16, 2024 10:25am GI Bleed October 28, 2024 9:35a m Reason for Visit Admit Date Atherosclerotic heart diseas e of [place] coronary artery without angina pectoris August 16, 2024 10:25am Atrial flutter August 16, 2024 10:25am Essential hypertension August 16 10:25am Pure hypercholesterolemia August 16, 2024 10:25am Health Concerns Infection Onset Date Last Indicated Resolved Time COVID-19 Rule-Out 05/18/2020 05/18/2020 05/18/2020 11:53 PM EST COVID-19 Rule-Out 08/12/2020 08/12/2020 08/13/2020 4:50 AM EST COVID-19 Rule-Out 05/20/2021 05/20/2021 05/21/2021 1:29 AM EST Infection Onset Date Last Indicated Resolved Time COVID-19 Rule-Out 05/20/2021 05/20/2021 05/21/2021 1:29 AM EST Reason for Referral Specialty Diagnoses / Procedures Referred By Contac t Referred To Contact CT IMAGING Diagnoses Chest pain on breathing Procedures CTA CHEST (NONGATED) WO/W IVCON CT ANGIOGRAPHY CHEST W/CONTRAST/NONCONTRAST Susan Kerr, COMFORT.EDGE POLISHER [address] [place] [address] [place] [address] Referral ID Status Reason Start Date Expiration Date Visits Requested Visits Authorized [id number] Pending Review Auto-Generat ed Referral 12/13/2023 01/11/2025 1 1 Specialty Diagnoses / Procedures Referred By Contac t Referred To Contact CT IMAGING Diagnoses Chest pain on breathing Procedures CT CHEST W IVCON PE DIAGNOSTIC COMPUTED TOMOGRAPHY THORAX W/CONTRAST Susan Kerr, BANQUET SERVER.EDGE POLISHER [address] [place] [address] [place] [address] Referral ID Status Reason Start Date Expiration Date Visits Requested Visits Authorized [id number] Authorized Financial Clearance Not Required 12/13/2023 01/11/2025 1 1 Specialty Diagnoses / Procedures Referred By Contac t Referred To Contact CT IMAGING Diagnoses Left lower quadrant abdominal pain Procedures CT ABD/PEL W IVCON CT ABD & PELVIS W/CONTRAST Jagjit Cheema MD [address] [place] [address] [place] [address] Referral ID Status Reason Start Date Expiration Date V isits Requested Visits Authorized [id number] Closed Financial Clearance Not Required 03/08/2024 04/07/2025 2 2 Specialty Diagnoses / Procedures Referred By Contac t Referred To Contact CT IMAGING Diagnoses Diarrhea, unspecified type Left lower quadrant abdominal pain Procedures CT ABD/PEL W IVCON CT ABD & PELVIS W/CONTRAST Jagjit Cheema MD [address] [place] [address] [place] [address] Referral ID Status Reason Start Date Expiration Date Visits Requested Visits Authorized [id number] New Request Auto-Generat ed Referral 03/08/2024 04/07/2025 1 1 Additional Source Comments (unrecognized sect ion and content) No Status Records FoundNo Status Records FoundNo Status Records FoundNo Status Records FoundNo Status Records FoundNo Status Records FoundNo Status Records Found INFORMATION SOURCE (unrecogn ized section and content) DATE CREATED AUTHOR 12/05/2017 [facility] DATE CREATED AUTHOR AUTHOR'S ORGANIZ ATION 08/29/2019 [facility] ([place] DATE CREATED AUTHOR AUTHOR'S ORGANIZ ATION 08/07/2021 [facility] DATE CREATED AUTHOR AUTHOR'S ORGANIZ ATION 07/20/2023 [facility] DATE CREATED AUTHOR AUTHOR'S ORGANIZ ATION 03/11/2024 [facility] DATE CREATED AUTHOR AUTHOR'S ORGANIZ ATION 11/03/2024 [facility] DATE CREATED AUTHOR AUTHOR'S ORGANIZ ATION 11/18/2024 [facility] Source Comments (unrecognize d section and content) In the event this informatio n is protected by the Federal Confidentiality of Alcohol and Drug Abuse Patient Records regulations: The Federal rules restrict any use of the information to criminally investigate or prosecute any alcohol or drug abuse patient.[facility] the event this information is protected by the Federal Confidentiality of Alcohol and Drug Abuse Patient Records regulations: The Federal rules restrict any use of the information to criminally investigate or prosecute any alcohol or drug abuse patient.[facility] Hospital[facility] the event this information is protected by the Federal Confidentiality of Alcohol and Drug Abuse Patient Records regulations: The Federal rules restrict any use of the information to criminally investigate or prosecute any alcohol or drug abuse patient.[facility] Hospital[facility] the event this information is protected by the Federal Confidentiality of Alcohol and Drug Abuse Patient Records regulations: The Federal rules restrict any use of the information to criminally investigate or prosecute any alcohol or drug abuse patient.[facility] HospitalIn the event this information is protected by the Federal Confidentiality of Alcohol and Drug Abuse Patient Records regulations: The Federal rules restrict any use of the information to criminally investigate or prosecute any alcohol or drug abuse patient.[facility] HospitalIn the event this information is protected by the Federal Confidentiality of Alcohol and Drug Abuse Patient Records regulations: The Federal rules restrict any use of the information to criminally investigate or prosecute any alcohol or drug abuse patient.[facility] HospitalIn the event this information is protected by the Federal Confidentiality of Alcohol and Drug Abuse Patient Records regulations: The Federal rules restrict any use of the information to criminally investigate or prosecute any alcohol or drug abuse patient.[facility] HospitalIn the event this information is protected by the Federal Confidentiality of Alcohol and Drug Abuse Patient Records regulations: The Federal rules restrict any use of the information to criminally investigate or prosecute any alcohol or drug abuse patient.[facility] HospitalIn the event this information is protected by the Federal Confidentiality of Alcohol and Drug Abuse Patient Records regulations: The Federal rules restrict any use of the information to criminally investigate or prosecute any alcohol or drug abuse patient.[facility] Hospital[facility] the event this information is protected by the Federal Confidentiality of Alcohol and Drug Abuse Patient Records regulations: The Federal rules restrict any use of the information to criminally investigate or prosecute any alcohol or drug abuse patient.[facility] HospitalIn the event this information is protected by the Federal Confidentiality of Alcohol and Drug Abuse Patient Records regulations: The Federal rules restrict any use of the information to criminally investigate or prosecute any alcohol or drug abuse patient.[facility] HospitalIn the event this information is protected by the Federal Confidentiality of Alcohol and Drug Abuse Patient Records regulations: The Federal rules restrict any use of the information to criminally investigate or prosecute any alcohol or drug abuse patient.[facility] HospitalIn the event this information is protected by the Federal Confidentiality of Alcohol and Drug Abuse Patient Records regulations: The Federal rules restrict any use of the information to criminally investigate or prosecute any alcohol or drug abuse patient.[facility] HospitalIn the event this information is protected by the Federal Confidentiality of Alcohol and Drug Abuse Patient Records regulations: The Federal rules restrict any use of the information to criminally investigate or prosecute any alcohol or drug abuse patient.[facility] HospitalIn the event this information is protected by the Federal Confidentiality of Alcohol and Drug Abuse Patient Records regulations: The Federal rules restrict any use of the information to criminally investigate or prosecute any alcohol or drug abuse patient.[facility] HospitalIn the event this information is protected by the Federal Confidentiality of Alcohol and Drug Abuse Patient Records regulations: The Federal rules restrict any use of the information to criminally investigate or prosecute any alcohol or drug abuse patient.[facility] HospitalIn the event this information is protected by the Federal Confidentiality of Alcohol and Drug Abuse Patient Records regulations: The Federal rules restrict any use of the information to criminally investigate or prosecute any alcohol or drug abuse patient.[facility] HospitalIn the event this information is protected by the Federal Confidentiality of Alcohol and Drug Abuse Patient Records regulations: The Federal rules restrict any use of the information to criminally investigate or prosecute any alcohol or drug abuse patient.[facility] HospitalIn the event this information is protected by the Federal Confidentiality of Alcohol and Drug Abuse Patient Records regulations: The Federal rules restrict any use of the information to criminally investigate or prosecute any alcohol or drug abuse patient.[facility] HospitalIn the event this information is protected by the Federal Confidentiality of Alcohol and Drug Abuse Patient Records regulations: The Federal rules restrict any use of the information to criminally investigate or prosecute any alcohol or drug abuse patient.[facility] HospitalIn the event this information is protected by the Federal Confidentiality of Alcohol and Drug Abuse Patient Records regulations: The Federal rules restrict any use of the information to criminally investigate or prosecute any alcohol or drug abuse patient.[facility] HospitalIn the event this information is protected by the Federal Confidentiality of Alcohol and Drug Abuse Patient Records regulations: The Federal rules restrict any use of the information to criminally investigate or prosecute any alcohol or drug abuse patient.[facility] HospitalIn the event this information is protected by the Federal Confidentiality of Alcohol and Drug Abuse Patient Records regulations: The Federal rules restrict any use of the information to criminally investigate or prosecute any alcohol or drug abuse patient.[facility] HospitalIn the event this information is protected by the Federal Confidentiality of Alcohol and Drug Abuse Patient Records regulations: The Federal rules restrict any use of the information to criminally investigate or prosecute any alcohol or drug abuse patient.[facility] HospitalIn the event this information is protected by the Federal Confidentiality of Alcohol and Drug Abuse Patient Records regulations: The Federal rules restrict any use of the information to criminally investigate or prosecute any alcohol or drug abuse patient.[facility] HospitalIn the event this information is protected by the Federal Confidentiality of Alcohol and Drug Abuse Patient Records regulations: The Federal rules restrict any use of the information to criminally investigate or prosecute any alcohol or drug abuse patient.[facility] HospitalIn the event this information is protected by the Federal Confidentiality of Alcohol and Drug Abuse Patient Records regulations: The Federal rules restrict any use of the information to criminally investigate or prosecute any alcohol or drug abuse patient.[facility] HospitalIn the event this information is protected by the Federal Confidentiality of Alcohol and Drug Abuse Patient Records regulations: The Federal rules restrict any use of the information to criminally investigate or prosecute any alcohol or drug abuse patient.[facility] HospitalIn the event this information is protected by the Federal Confidentiality of Alcohol and Drug Abuse Patient Records regulations: The Federal rules restrict any use of the information to criminally investigate or prosecute any alcohol or drug abuse patient.[facility] HospitalIn the event this information is protected by the Federal Confidentiality of Alcohol and Drug Abuse Patient Records regulations: The Federal rules restrict any use of the information to criminally investigate or prosecute any alcohol or drug abuse patient.[facility] HospitalIn the event this information is protected by the Federal Confidentiality of Alcohol and Drug Abuse Patient Records regulations: The Federal rules restrict any use of the information to criminally investigate or prosecute any alcohol or drug abuse patient.[facility] HospitalIn the event this information is protected by the Federal Confidentiality of Alcohol and Drug Abuse Patient Records regulations: The Federal rules restrict any use of the information to criminally investigate or prosecute any alcohol or drug abuse patient.[facility] HospitalIn the event this information is protected by the Federal Confidentiality of Alcohol and Drug Abuse Patient Records regulations: The Federal rules restrict any use of the information to criminally investigate or prosecute any alcohol or drug abuse patient.[facility] HospitalIn the event this information is protected by the Federal Confidentiality of Alcohol and Drug Abuse Patient Records regulations: The Federal rules restrict any use of the information to criminally investigate or prosecute any alcohol or drug abuse patient.[facility] HospitalIn the event this information is protected by the Federal Confidentiality of Alcohol and Drug Abuse Patient Records regulations: The Federal rules restrict any use of the information to criminally investigate or prosecute any alcohol or drug abuse patient.[facility] HospitalIn the event this information is protected by the Federal Confidentiality of Alcohol and Drug Abuse Patient Records regulations: The Federal rules restrict any use of the information to criminally investigate or prosecute any alcohol or drug abuse patient.[facility] HospitalIn the event this information is protected by the Federal Confidentiality of Alcohol and Drug Abuse Patient Records regulations: The Federal rules restrict any use of the information to criminally investigate or prosecute any alcohol or drug abuse patient.[facility] HospitalIn the event this information is protected by the Federal Confidentiality of Alcohol and Drug Abuse Patient Records regulations: The Federal rules restrict any use of the information to criminally investigate or prosecute any alcohol or drug abuse patient.[facility] HospitalIn the event this information is protected by the Federal Confidentiality of Alcohol and Drug Abuse Patient Records regulations: The Federal rules restrict any use of the information to criminally investigate or prosecute any alcohol or drug abuse patient.[facility] HospitalIn the event this information is protected by the Federal Confidentiality of Alcohol and Drug Abuse Patient Records regulations: The Federal rules restrict any use of the information to criminally investigate or prosecute any alcohol or drug abuse patient.[facility] HospitalIn the event this information is protected by the Federal Confidentiality of Alcohol and Drug Abuse Patient Records regulations: The Federal rules restrict any use of the information to criminally investigate or prosecute any alcohol or drug abuse patient.[facility] HospitalIn the event this information is protected by the Federal Confidentiality of Alcohol and Drug Abuse Patient Records regulations: The Federal rules restrict any use of the information to criminally investigate or prosecute any alcohol or drug abuse patient.[facility] HospitalIn the event this information is protected by the Federal Confidentiality of Alcohol and Drug Abuse Patient Records regulations: The Federal rules restrict any use of the information to criminally investigate or prosecute any alcohol or drug abuse patient.[facility] HospitalIn the event this information is protected by the Federal Confidentiality of Alcohol and Drug Abuse Patient Records regulations: The Federal rules restrict any use of the information to criminally investigate or prosecute any alcohol or drug abuse patient.[facility] HospitalIn the event this information is protected by the Federal Confidentiality of Alcohol and Drug Abuse Patient Records regulations: The Federal rules restrict any use of the information to criminally investigate or prosecute any alcohol or drug abuse patient.[facility] HospitalIn the event this information is protected by the Federal Confidentiality of Alcohol and Drug Abuse Patient Records regulations: The Federal rules restrict any use of the information to criminally investigate or prosecute any alcohol or drug abuse patient.[facility] HospitalIn the event this information is protected by the Federal Confidentiality of Alcohol and Drug Abuse Patient Records regulations: The Federal rules restrict any use of the information to criminally investigate or prosecute any alcohol or drug abuse patient.[facility] HospitalIn the event this information is protected by the Federal Confidentiality of Alcohol and Drug Abuse Patient Records regulations: The Federal rules restrict any use of the information to criminally investigate or prosecute any alcohol or drug abuse patient.[facility] HospitalIn the event this information is protected by the Federal Confidentiality of Alcohol and Drug Abuse Patient Records regulations: The Federal rules restrict any use of the information to criminally investigate or prosecute any alcohol or drug abuse patient.[facility] HospitalIn the event this information is protected by the Federal Confidentiality of Alcohol and Drug Abuse Patient Records regulations: The Federal rules restrict any use of the information to criminally investigate or prosecute any alcohol or drug abuse patient.[facility] HospitalIn the event this information is protected by the Federal Confidentiality of Alcohol and Drug Abuse Patient Records regulations: The Federal rules restrict any use of the information to criminally investigate or prosecute any alcohol or drug abuse patient.[facility] HospitalIn the event this information is protected by the Federal Confidentiality of Alcohol and Drug Abuse Patient Records regulations: The Federal rules restrict any use of the information to criminally investigate or prosecute any alcohol or drug abuse patient.[facility] HospitalIn the event this information is protected by the Federal Confidentiality of Alcohol and Drug Abuse Patient Records regulations: The Federal rules restrict any use of the information to criminally investigate or prosecute any alcohol or drug abuse patient.[facility] HospitalIn the event this information is protected by the Federal Confidentiality of Alcohol and Drug Abuse Patient Records regulations: The Federal rules restrict any use of the information to criminally investigate or prosecute any alcohol or drug abuse patient.[facility] HospitalIn the event this information is protected by the Federal Confidentiality of Alcohol and Drug Abuse Patient Records regulations: The Federal rules restrict any use of the information to criminally investigate or prosecute any alcohol or drug abuse patient.[facility] HospitalIn the event this information is protected by the Federal Confidentiality of Alcohol and Drug Abuse Patient Records regulations: The Federal rules restrict any use of the information to criminally investigate or prosecute any alcohol or drug abuse patient.[facility] HospitalIn the event this information is protected by the Federal Confidentiality of Alcohol and Drug Abuse Patient Records regulations: The Federal rules restrict any use of the information to criminally investigate or prosecute any alcohol or drug abuse patient.[facility] HospitalIn the event this information is protected by the Federal Confidentiality of Alcohol and Drug Abuse Patient Records regulations: The Federal rules restrict any use of the information to criminally investigate or prosecute any alcohol or drug abuse patient.[facility] HospitalIn the event this information is protected by the Federal Confidentiality of Alcohol and Drug Abuse Patient Records regulations: The Federal rules restrict any use of the information to criminally investigate or prosecute any alcohol or drug abuse patient.[facility] HospitalIn the event this information is protected by the Federal Confidentiality of Alcohol and Drug Abuse Patient Records regulations: The Federal rules restrict any use of the information to criminally investigate or prosecute any alcohol or drug abuse patient.[facility] HospitalIn the event this information is protected by the Federal Confidentiality of Alcohol and Drug Abuse Patient Records regulations: The Federal rules restrict any use of the information to criminally investigate or prosecute any alcohol or drug abuse patient.[facility] HospitalIn the event this information is protected by the Federal Confidentiality of Alcohol and Drug Abuse Patient Records regulations: The Federal rules restrict any use of the information to criminally investigate or prosecute any alcohol or drug abuse patient.[facility] HospitalIn the event this information is protected by the Federal Confidentiality of Alcohol and Drug Abuse Patient Records regulations: The Federal rules restrict any use of the information to criminally investigate or prosecute any alcohol or drug abuse patient.[facility] HospitalIn the event this information is protected by the Federal Confidentiality of Alcohol and Drug Abuse Patient Records regulations: The Federal rules restrict any use of the information to criminally investigate or prosecute any alcohol or drug abuse patient.[facility] HospitalIn the event this information is protected by the Federal Confidentiality of Alcohol and Drug Abuse Patient Records regulations: The Federal rules restrict any use of the information to criminally investigate or prosecute any alcohol or drug abuse patient.[facility] HospitalIn the event this information is protected by the Federal Confidentiality of Alcohol and Drug Abuse Patient Records regulations: The Federal rules restrict any use of the information to criminally investigate or prosecute any alcohol or drug abuse patient.[facility] HospitalIn the event this information is protected by the Federal Confidentiality of Alcohol and Drug Abuse Patient Records regulations: The Federal rules restrict any use of the information to criminally investigate or prosecute any alcohol or drug abuse patient.[facility] HospitalIn the event this information is protected by the Federal Confidentiality of Alcohol and Drug Abuse Patient Records regulations: The Federal rules restrict any use of the information to criminally investigate or prosecute any alcohol or drug abuse patient.[facility] HospitalIn the event this information is protected by the Federal Confidentiality of Alcohol and Drug Abuse Patient Records regulations: The Federal rules restrict any use of the information to criminally investigate or prosecute any alcohol or drug abuse patient.[facility] HospitalIn the event this information is protected by the Federal Confidentiality of Alcohol and Drug Abuse Patient Records regulations: The Federal rules restrict any use of the information to criminally investigate or prosecute any alcohol or drug abuse patient.[facility] HospitalIn the event this information is protected by the Federal Confidentiality of Alcohol and Drug Abuse Patient Records regulations: The Federal rules restrict any use of the information to criminally investigate or prosecute any alcohol or drug abuse patient.[facility] HospitalIn the event this information is protected by the Federal Confidentiality of Alcohol and Drug Abuse Patient Records regulations: The Federal rules restrict any use of the information to criminally investigate or prosecute any alcohol or drug abuse patient.[facility] HospitalIn the event this information is protected by the Federal Confidentiality of Alcohol and Drug Abuse Patient Records regulations: The Federal rules restrict any use of the information to criminally investigate or prosecute any alcohol or drug abuse patient.[facility] HospitalIn the event this information is protected by the Federal Confidentiality of Alcohol and Drug Abuse Patient Records regulations: The Federal rules restrict any use of the information to criminally investigate or prosecute any alcohol or drug abuse patient.[facility] HospitalIn the event this information is protected by the Federal Confidentiality of Alcohol and Drug Abuse Patient Records regulations: The Federal rules restrict any use of the information to criminally investigate or prosecute any alcohol or drug abuse patient.[facility] HospitalIn the event this information is protected by the Federal Confidentiality of Alcohol and Drug Abuse Patient Records regulations: The Federal rules restrict any use of the information to criminally investigate or prosecute any alcohol or drug abuse patient.[facility] HospitalIn the event this information is protected by the Federal Confidentiality of Alcohol and Drug Abuse Patient Records regulations: The Federal rules restrict any use of the information to criminally investigate or prosecute any alcohol or drug abuse patient.[facility] Reason for Visit (unrecogniz ed section and content) Reason Comments New Pain Numbness Reason Comments Blood Pressure lightheaded Reason Comments [...] Reason Onset Date Comments Refill Request 06/08/2023 Reason Comments 6 Month Exam Reason Onset Date Comments Refill Request 12/01/2023 Reason Comments Orders Reason Comments Acute Visit Shortness of breath, dizziness, cough, body aches x 1 week Reason Comments Cough Covid 19 Reason Comments 6 Month Exam Specialty Diagnoses / Procedures Referred By Contac t Referred To Contact CT IMAGING Diagnoses Left lower quadrant abdominal pain Procedures CT ABD/PEL W IVCON CT ABD & PELVIS W/CONTRAST Jagjit Cheema MD [address] [place] [address] [address] [facility] [place] [address] Referral ID Status Reason Start Date Expiration Date V isits Requested Visits Authorized [id number] Closed Financial Clearance Not Required 03/08/2024 04/07/2025 2 2 Reason Comments Radio Gen RMP Specialty Diagnoses / Procedures Referred By Contac t Referred To Contact XR IMAGING Diagnoses Pain Procedures XR FOOT GENERAL 3V AP/LAT/OBL RIGHT RADEX FOOT COMPLETE MINIMUM 3 VIEWS Oliva Gutierrez PA-C [address] [place] [id number] Xr Imaging [place] [address] Referral ID Status Reason Start Date Expiration Date V isits Requested Visits Authorized [id number] Closed Auto-Generate d Referral 09/08/2021 10/08/2022 1 1 Reason Comments URI X 1 week Reason Comments 07/19/2023 UMBILICAL HERNIA REPAIR FORD Reason Comments Fatigue Reason Comments Dizziness X 1 week Reason Comments Lab add on Reason Comments Chest Congestion cough, nasal congest ion, drainage x 1 week Reason Comments Patient Question Orders Reason Comments Cough Reason Onset Date Comments Refill Request 07/01/2024 Reason Comments Pneumonia Reason Comments [facility] Reason Onset Date Comments Refill Request 08/16/2024 Reason Onset Date Comments Refill Request 10/16/2024 Reason Comments Rectal Bleeding Reason Comments Acute Visit Chest congestion, fa tigue, dry cough, headache; no fever Care Teams (unrecognized sec tion and content) Pelts Skinner Relationship Specialty Start Date End Date Jagjit Cheema MD [address], [place] [id number] PCP - General Family Practice 04/13/12 Pelts Skinner Relationship Specialty Start Date End Date Jagjit Cheema MD [address], [place] [id number] PCP - General Family Practice 04/13/12 Pelts Skinner Relationship Specialty Start Date End Date Jagjit Cheema MD [address] [place] [address] PCP - General Family Practice 04/13/12 Pelts Skinner Relationship Specialty Start Date End Date Jagjit Cheema MD [address] [place] [address] PCP - General Family Practice 04/13/12 Pelts Skinner Relationship Specialty Start Date End Date Jagjit Cheema MD [address] [place] [address] PCP - General Family Practice 04/13/12 Pelts Skinner Relationship Specialty Start Date End Date Jagjit Cheema MD [address] [place] [address] PCP - General Family Practice 04/13/12 Pelts Skinner Relationship Specialty Start Date End Date Jagjit Cheema MD [address] [place] [address] PCP - General Family Practice 04/13/12 Pelts Skinner Relationship Specialty Start Date End Date Jagjit Cheema MD [address] [place] [address] PCP - General Family Practice 04/13/12 Pelts Skinner Relationship Specialty Start Date End Date Jagjit Cheema MD [address] [place] [address] PCP - General Family Practice 04/13/12 Pelts Skinner Relationship Specialty Start Date End Date Jagjit Cheema MD [address] [place] [address] PCP - General Family Practice 04/13/12 Pelts Skinner Relationship Specialty Start Date End Date Jagjit Cheema MD [address] [place] [address] PCP - General Family Practice 04/13/12 Pelts Skinner Relationship Specialty Start Date End Date Jagjit Cheema MD [address], [place] [id number] PCP - General Family Medicine 04/13/12 Pelts Skinner Relationship Specialty Start Date End Date Jagjit Cheema MD [address], [place] [id number] PCP - General Family Medicine 04/13/12 Team Status: Active Member Role Status Dates Dr. Jagjit Cheema MD Family Provider Active Dr. Jagjit Cheema MD Primary Care Provider Active Team Status: Inactive Member Role Status Dates Dr. Jagjit Cheema MD Primary Care Provider, Referring Provider Active Dr. Willis Alfred MD Attending Provider Active Team Status: Inactive Member Role Status Dates Dr. Jagjit Cheema MD Primary Care Provider, Referring Provider Active Hussein Gramajo NP, CUSTOMER SERVICE CORRESPONDENCE CLERK-C Attending Provider Active Team Status: Active Member Role Status Dates Dr. Jagjit Cehema MD Primary Care Provider Active Dr. Willis Alfred MD Attending Provider Active Team Status: Inactive Member Role Status Dates Dr. Jagjit Cheema MD Primary Care Provider, Referring Provider Active Aparna Gooden NP, CUSTOMER SERVICE CORRESPONDENCE CLERK-C Attending Provider Active Team Status: Active Member Role Status Dates Dr. Jagjit Cheema MD Primary Care Provider Active Dr. Willis Alfred MD Attending Provid er, Referring Provider, Other Provider Active Team Status: Active Member Role Status Dates Dr. Jagjit Cheema MD Primary Care Provider Active Dr. Willis Alfred MD Referring Provider, Other Prov ider Active Dr. Shaji Wyatt DO Attending Provider Active Team Status: Inactive Member Role Status Dates Dr. Jagjit Cheema MD Primary Care Provider Active Dr. Gamal Ramos MD Attending Provider, Referr ing Provider Active Dr. Willis Alfred MD Other Provider Active Team Status: Inactive Member Role Status Dates Dr. Jagjit Cheema MD Primary Care Provider Active Dr. Gamal Ramos MD Attending Provider, Referr ing Provider Active Team Status: Inactive Member Role Status Dates Dr. Jagjit Cheema MD Primary Care Provider Active Dr. Willis Alfred MD Attending Provider, Referring Provider Active Team Status: Inactive Member Role Status Dates Dr. Jagjit Cheema MD Primary Care Provider Active Dr. Willis Alfred MD Attending Provider Active Team Status: Inactive Member Role Status Dates Dr. Jagjit Cheema MD Primary Care Provider Active Stwe Shi MD Attending Provider, Emergency Provid er Active Pelts Skinner Relationship Specialty Start Date End Date Jagjit Cheema MD [address] [place] [address] PCP - General Family Medicine 04/13/12 Pelts Skinner Relationship Specialty Start Date End Date Jagjit Cheema MD [address] [place] [address] PCP - General Family Medicine 04/13/12 Pelts Skinner Relationship Specialty Start Date End Date Jagjit Cheema MD [address] [place] [address] PCP - General Family Medicine 04/13/12 Pelts Skinner Relationship Specialty Start Date End Date Jagjit Cheema MD [address] [place] [address] PCP - General Family Medicine 04/13/12 Pelts Skinner Relationship Specialty Start Date End Date Jagjit Cheema MD [address] [place] [address] PCP - General Family Medicine 04/13/12 Pelts Skinner Relationship Specialty Start Date End Date Jagjit Cheema MD [address] [place] [address] PCP - General Family Medicine 04/13/12 Pelts Skinner Relationship Specialty Start Date End Date Jagjit Cheema MD [address] [place] [address] PCP - General Family Medicine 04/13/12 Team Status: Active Member Role Status Dates Dr. Jagjit Cheema MD Primary Care Provider Active SARA Young Attending Provider, Referring Pro vider Active Team Status: Active Member Role Status Dates Dr. Jagjit Cheema MD Primary Care Provider Active Dr. Nahum Dias , DO Emergency Provider Active Dr. Lucy Partida MD Admit Provider, Attending Prov ider Active Team Status: Inactive Member Role Status Dates Dr. Jagjit Cheema MD Primary Care Provider Active Dr. Vee Horton MD Emergency Provider Active Team Status: Active Member Role Status Dates Dr. Jagjit Cheema MD Primary Care Provider Active Dr. Nahum Dias , DO Emergency Provider Active Dr. Lucy Partida MD Admit Provider, Attending Provider, Other Provider Active Team Status: Inactive Member Role Status Dates Dr. Jagjit Cheema MD Primary Care Provider Active Dr. Nahum Dias , DO Emergency Provider Active Dr. Lucy Partida MD Admit Provider, Other Provider Active Dr. Librado Bah , DO Attending Provider Active Pelts Skinner Relationship Specialty Start Date End Date Jagjit Cheema MD [address] [place] [address] PCP - General Family Medicine 04/13/12 Pelts Skinner Relationship Specialty Start Date End Date Jagjit Cheema MD [address] [place] [address] PCP - General Family Medicine 04/13/12 Pelts Skinner Relationship Specialty Start Date End Date Jagjit Cheema MD [address] [place] [address] PCP - General Family Medicine 04/13/12 Pelts Skinner Relationship Specialty Start Date End Date Jagjit Cheema MD [address] [place] [address] PCP - General Family Medicine 04/13/12 Pelts Skinner Relationship Specialty Start Date End Date Jagjit Cheema MD [address] [place] [address] PCP - General Family Medicine 04/13/12 Team Status: Active Member Role Status Dates Dr. Jagjit Cheema MD Primary Care Provider Active GEOFF SAMUELS Attending Provider Active Team Status: Inactive Member Role Status Dates Dr. Jagjit Cheema MD Primary Care Provider Active GEOFF SAMUELS Attending Provider Active Pelts Skinner Relationship Specialty Start Date End Date Jagjit Cheema MD [address] [place] [address] PCP - General Family Medicine 04/13/12 Team Status: Inactive Member Role Status Dates Dr. Jagjit Cheema MD Primary Care Provider, Referring Provider Active Aparna Gooden NP, CUSTOMER SERVICE CORRESPONDENCE CLERK-C Active Dr. Flores Glover MD Attending Provider Active Team Status: Inactive Member Role Status Dates Dr. Jagjit Cheema MD Primary Care Provider Active TRAV MCGEE NP-C Attending Provider, Referring Pro vider Active Dr. Flores Glover MD Other Provider Active Pelts Skinner Relationship Specialty Start Date End Date Jagjit Cheema MD [address] [place] [address] PCP - General Family Medicine 04/13/12 Pelts Skinner Relationship Specialty Start Date End Date Jagjit Cheema MD [address] [place] [address] PCP - General Family Medicine 04/13/12 Pelts Skinner Relationship Specialty Start Date End Date Jagjit Cheema MD [address] [place], [place] [address] PCP - General Family Medicine 04/13/12 Team Status: Inactive Member Role Status Dates Dr. Jagjit Cheema MD Primary Care Provider, Referring Provider Active Dr. Flores Glover MD Attending Provider Active Team Status: Inactive Member Role Status Dates Dr. Jagjit Cheema MD Primary Care Provider Active Dr. Sergo Perez MD Attending Provider Active Team Status: Inactive Member Role Status Dates Dr. Jagjit Cheema MD Primary Care Provider Active Dr. Flores Glover MD Attending Provider, Referring Pr ovider Active Pelts Skinner Relationship Specialty Start Date End Date Jagjit Cheema MD [address] [place] [address] PCP - General Family Medicine 04/13/12 Pelts Skinner Relationship Specialty Start Date End Date Jagjit Cheema MD [address] [place] [address] PCP - General Family Medicine 04/13/12 Pelts Skinner Relationship Specialty Start Date End Date Jagjit Cheema MD [address] [place] [address] PCP - General Family Medicine 04/13/12 Pelts Skinner Relationship Specialty Start Date End Date Jagjit Cheema MD [address] [place] [address] PCP - General Family Medicine 04/13/12 Pelts Skinner Relationship Specialty Start Date End Date Jagjit Cheema MD [address] [place] [address] PCP - General Family Medicine 04/13/12 Pelts Skinner Relationship Specialty Start Date End Date Jagjit Cheema MD [address] [place] [address] PCP - General Family Medicine 04/13/12 Pelts Skinner Relationship Specialty Start Date End Date Jagjit Cheema MD [address] [place] [address] PCP - General Family Medicine 04/13/12 Pelts Skinner Relationship Specialty Start Date End Date Jagjit Cheema MD [address] [place] [address] PCP - General Family Medicine 04/13/12 Pelts Skinner Relationship Specialty Start Date End Date Jagjit Cheema MD [address] [place] [address] PCP - General Family Medicine 04/13/12 Pelts Skinner Relationship Specialty Start Date End Date Jagjit Cheema MD [address] [place] [address] PCP - General Family Medicine 04/13/12 Pelts Skinner Relationship Specialty Start Date End Date Jagjit Cheema MD [address] [place] [address] PCP - General Family Medicine 04/13/12 Pelts Skinner Relationship Specialty Start Date End Date Jagjit Cheema MD [address] [place] [address] PCP - General Family Medicine 04/13/12 Pelts Skinner Relationship Specialty Start Date End Date Jagjit Cheema MD [address] [place] [address] PCP - General Family Medicine 04/13/12 Pelts Skinner Relationship Specialty Start Date End Date Jagjit Cheema MD [address] [place] [address] PCP - General Family Medicine 04/13/12 Pelts Skinner Relationship Specialty Start Date End Date Jagjit Cheema MD [address] [place] [address] PCP - General Family Medicine 04/13/12 Pelts Skinner Relationship Specialty Start Date End Date Jagjit Cheema MD [address] [place] [address] PCP - General Family Medicine 04/13/12 Pelts Skinner Relationship Specialty Start Date End Date Jagjit Cheema MD [address] [place] [address] PCP - General Family Medicine 04/13/12 Pelts Skinner Relationship Specialty Start Date End Date Jagjit Cheema MD [address] [facility] [address] PCP - General Family Medicine 04/13/12 Susan Kerr APRN.EDGE POLISHER [address] [place] [address] Sheetmetal Patternmaker Family Medicine 05/27/24 Beverley Gutierrez APRN.EDGE POLISHER [address] [place] [address] Sheetmetal Patternmaker Family Medicine 05/27/24 Pelts Skinner Relationship Specialty Start Date End Date Jagjit Cheema MD [address] [place] [address] PCP - General Family Medicine 04/13/12 Susan Kerr BANQUET SERVER.EDGE POLISHER [address] [facility] [place] [address] Sheetmetal Patternmaker Family Medicine 05/27/24 Pelts Skinner Relationship Specialty Start Date End Date Jagjit Cheema MD [address] [place] [address] PCP - General Family Medicine 04/13/12 Susan Kerr APRN.EDGE POLISHER [address] [facility] [place] [address] Sheetmetal Patternmaker Family Medicine 05/27/24 Pelts Skinner Relationship Specialty Start Date End Date Jagjit Cheema MD [address] [place] [address] PCP - General Family Medicine 04/13/12 Susan Kerr APRN.EDGE POLISHER [address] [facility] [place] [place] [address] Sheetmetal Patternmaker Family Medicine 05/27/24 Pelts Skinner Relationship Specialty Start Date End Date Jagjit Cheema MD [address] [place] [address] PCP - General Family Medicine 04/13/12 Susan Kerr APRN.EDGE POLISHER [address] [place] [address] Sheetmetal Patternmaker Family Medicine 05/27/24 Beverley Gutierrez BANQUET SERVER.EDGE POLISHER [address] [place] [address] Sheetmetal Patternmaker Family Medicine 05/27/24 Pelts Skinner Relationship Specialty Start Date End Date Jagjit Cheema MD [address] [place] [address] PCP - General Family Medicine 04/13/12 Susan Kerr BANQUET SERVER.EDGE POLISHER [address] [place] [address] Sheetmetal Patternmaker Family Medicine 05/27/24 Beverley Gutierrez BANQUET SERVER.EDGE POLISHER [address] [place] [address] Sheetmetal Patternmaker Family Medicine 05/27/24 Pelts Skinner Relationship Specialty Start Date End Date Jagjit Cheema MD [address] [place] [address] PCP - General Family Medicine 04/13/12 Susan Kerr APRN.EDGE POLISHER [address] [place] [address] Sheetmetal Patternmaker Family Medicine 05/27/24 Beverley Gutierrez APRN.EDGE POLISHER [address] [place] [address] Sheetmetal Patternmaker Family Medicine 05/27/24 Pelts Skinner Relationship Specialty Start Date End Date Jagjit Cheema MD [address] [place] [address] PCP - General Family Medicine 04/13/12 Susan Kerr APRN.EDGE POLISHER [address] [place] [address] Sheetmetal Patternmaker Family Medicine 05/27/24 Beverley Gutierrez BANQUET SERVER.EDGE POLISHER [address] [place] [address] [facility] 05/[facility]/24 Pelts Skinner Relationship Specialty Start Date End Date Jagjit Cheema MD [address] [place] [address] PCP - General Family Medicine 04/13/12 Susan Kerr BANQUET SERVER.EDGE POLISHER [address] [place] [address] Sheetmetal Patternmaker Family Medicine 05/27/24 Beverley Gutierrez APRN.EDGE POLISHER [address] [place] [address] Sheetmetal Patternmaker Family Medicine 05/27/24 Pelts Skinner Relationship Specialty Start Date End Date Jagjit Cheema MD [address] [facility] [place] [address] PCP - General Family Medicine 04/13/12 Susan Kerr APRN.EDGE POLISHER [address] [facility] [place] [address] Sheetmetal Patternmaker Family Medicine 05/27/24 Beverley Gutierrez APRN.EDGE POLISHER [address] [facility] [place] [address] [facility] 05/27/24 Pelts Skinner Relationship Specialty Start Date End Date Jagjit Cheema MD [address] [place] [address] PCP - General Family Medicine 04/13/12 Susan Kerr APRN.EDGE POLISHER [address] [facility] [address] [facility] 05/27/24 Beverley Gutierrez APRN.EDGE POLISHER [address] [place] [address] [facility] 05/27/24 Pelts Skinner Relationship Specialty Start Date End Date Jagjit Cheema MD [address] [place] [address] PCP - General Family Medicine 04/13/12 Susan Kerr APRN.EDGE POLISHER [address] [facility] [place] [address] Sheetmetal Patternmaker Family Medicine 05/27/24 Beverley Gutierrez APRN.EDGE POLISHER [address] [facility] [place] [address] [facility] 05/27/24 Pelts Skinner Relationship Specialty Start Date End Date Jagjit Cheema MD [address] [facility] [place] [address] PCP - General Family Medicine 04/13/12 Susan Kerr APRN.EDGE POLISHER [address] [place] [address] Sheetmetal Patternmaker [facility] Medicine 05/27/24 Beverley Gutierrez APRN.EDGE POLISHER [address] [place] [address] [facility] 05/27/24 Pelts Skinner Relationship Specialty Start Date End Date Jagjit Cheema MD [address] [place] [address] PCP - General Family Medicine 04/13/12 Susan Kerr APRN.EDGE POLISHER [address] [place] [address] Sheetmetal Patternmaker Family Medicine 05/27/24 Beverley Gutierrez BANQUET SERVER.EDGE POLISHER [address] [place] [address] [facility] 05/27/24 Pelts Skinner Relationship Specialty Start Date End Date Jagjit Cheema MD [address] [place] [address] PCP - General Family Medicine 04/13/12 Susan Kerr, BANQUET SERVER.EDGE POLISHER [address] [place] [address] Replaced By [facility] 05/27/24 Beverley Gutierrez BANQUET SERVER.EDGE POLISHER [address] [place] [place] [address] Replaced By [facility] 05/27/24 Team Status: Active Member Role Status Dates Dr. Jagjit Cheema MD Primary Care Provider Active Team Status: Inactive Member Role Status Dates Dr. Jagjit Cheema MD Primary Care Provider Active Start: August 16, 2024 End: August 16, 2024 Dr. Jagjit Cheema MD Referring Provider Active Start: August 16, 2024 End: August 16, 2024 Hussein Gramajo CUSTOMER SERVICE CORRESPONDENCE CLERK, CUSTOMER SERVICE CORRESPONDENCE CLERK-C Attending Provider Active S tart: August 16, 2024 End: August 16, 2024 Team Status: Inactive Member Role Status Dates Dr. Jagjit Cheema MD Primary Care Provider Active Start: October 28, 2024 End: October 28, 2024 Dr. Robby Mclaughlin DO Emergency Provider Active Start: October 28, 2024 End: October 28, 2024 Pelts Skinner Relationship Specialty Start Date End Date Jagjit Cheema MD [address] [place] [address] PCP - General Family Medicine 04/13/12 Susan Kerr BANQUET SERVER.EDGE POLISHER [address] [place] [address] Replaced By [facility] 05/27/24 Beverley Gutierrez BANQUET SERVER.EDGE POLISHER [address] [place] [id number] Replaced By [facility] 05/27/24 Pelts Skinner Relationship Specialty Start Date End Date Jagjit Cheema MD [address] [place] [place] [id number] PCP - General Family Medicine 04/13/12 Susan Kerr APRN.EDGE POLISHER [address] [place], [place] [address] Replaced By [facility] 05/27/24 Bevelrey Gutierrez APRN.EDGE POLISHER [address] [place], [place] [address] Replaced By [facility] 05/27/24 Goals (unrecognized section and content) Goals may be documented in a n alternate sectionGoals may be documented in an alternate sectionGoals may be documented in an alternate sectionGoals may be documented in an alternate sectionGoals may be documented in an alternate sectionGoals may be documented in an alternate sectionGoals may be documented in an alternate sectionGoals may be documented in an alternate sectionGoals may be documented in an alternate sectionGoals may be documented in an alternate sectionGoals may be documented in an alternate sectionGoals may be documented in an alternate sectionGoals may be documented in an alternate sectionGoals may be documented in an alternate sectionGoals may be documented in an alternate section FOR RECORDS PERTAINING TO PATIENTS WHO ARE [...] BE BASED ON THE PRIMARY CLINICAL RECORDS. [facility] [employer] [facility]. provides no warranty or guarantee of the accuracy or completeness of information in this document.
--- NOTE | 2024-11-21 14:14 | STRESSREP_ITS ---
Stress Test Report Date: 11/21/2024 Procedure: Pharmacologic stress nuclear imaging study Indications: [chest pain, CAD] Consent: Per the patient Procedure: The patient underwent pharmacologic (Regadenoson) evaluation with a peak heart rate of 75 beats per minute (49%predicted maximal heart rate) and a peak blood pressure of 140/62 mmHg. The baseline ECG demonstrated normal sinus rhythm, first degree AV block. EKG during lexiscan infusion revealed no significant ischemic changes. EKG post infusion revealed no significant ischemic changes [There were no cardiac dysrhythmias pretest, during pharmacologic infusion, or recovery]. [There was no complaint of chest discomfort during pharmacologic infusion or recovery]. The examination was discontinued secondary to completion of protocol. Impression: 1. Lexiscan stress test test is negative for Lexiscan infusion induced EKG changes of ischemia. 2. Lexiscan stress test test is negative for Lexiscan infusion induced chest pain. 3. Results of the nuclear portion of the test is as below Myocardial perfusion imaging study: Technique: The patient was injected with 10.6 millicuries of technetium 99m Cardiolite and subsequently rest SPECT Cardiolite nuclear imaging was obtained in the horizontal long, vertical long, and short axis views. The patient underwent pharmacologic [Regadenoson 0.4mg] evaluation. Please see above for details. The patient was injected with 35.5 millicuries of technetium 99m Cardiolite and subsequently stress SPECT Cardiolite nuclear imaging was obtained in the horizontal long, vertical long, and short axis views. A gated Cardiolite study at peak stress was obtained. Interpretation: Rest and stress SPECT Cardiolite nuclear imaging status post realignment, normalization, and attenuation correction demonstrate no evidence of significant ischemia or infarction. Gated images reveal no significant regional wall motion abnormalities. The reported LVEF is 65%. Impression: 1. There is no evidence of significant ischemia or infarction. 2. Estimated ejection fraction is 65%. This note was generated with [employer] software. It may contain incorrect words, spelling, and punctuation that were not noted in checking the note before signing.
== END | disposition home or self-care (01) ==
LOC: CVS 06:27
PROVIDERS: PCP Family Medicine; Referring Provider Internal Medicine Cardiovascular Disease; Visit Provider Internal Medicine Cardiovascular Disease
DX: R07.9 Chest pain, unspecified (principal); I25.10 Atherosclerotic heart disease of native coronary artery without angina pectoris
CPT/HCPCS: 78452; 93017; A9500; A4216; J2785

== ENCOUNTER 2025-01-30 15:43 | Inpatient (IN) | payer MEDICARE, BC, SELFPAY ==
[2025-01-30] VITALS (17 sets, daily range): BP systolic 132–162; BP diastolic 67–104; PULSE 59–103; RESP 14–21; TEMP 36.6–37; O2SAT 94–100; BMI 39.2; BMI 38.5
[2025-01-30 16:13] LABS: Hematocrit 46.8 % (40-54); Hemoglobin 16.6 g/dL (13.0-16.5); Immature Granulocytes Count 0.010 X10^3/uL (0.0-0.0); Mean Corp Hgb Conc 35.5 g/dL (32-36); Mean Corpuscular Volume 83.4 fL (80-94); Mean Platelet Vol. 11.2 fl (6.2-12.0); NRBC Flagged by Analyzer 0 % (0-5); Platelet Count 193 K/mm3 (150-450); RBC Distribution Width CV 12.6 % (11.6-14.6); RBC Distribution Width SD 38.2 fl (35.1-43.9); Red Blood Count 5.61 M/mm3 (4.6-6.2); White Blood Count 8.0 K/mm3 (4.4-11.0)
[2025-01-30 16:36] LABS: Anion Gap 15 (5-15); BUN 14 mg/dL (4-19); BUN/Creat Ratio 10.3 RATIO (10-20); Calcium,Total 9.5 mg/dL (7.6-11.0); Carbon Dioxide 22.1 mmol/L (21.0-32.0); Chloride 104 mmol/L (98-108); Glucose 143 mg/dL (70-99); Potassium 3.7 mmol/L (3.3-5.1); Troponin T High Sensitivity 31 ng/L (<=22)
--- NOTE | 2025-01-30 16:40 | ED.RN ---
c/o of intermittent nausea, constipation, diarrhea, and weakness, vision changes and tingling and numbness around his mouth, in his chest, down both arms and into face over the last two weeks. also reports chest pressure that radiates to his back currently. started taking wegovy about 2 months ago in order to lose weight.
--- NOTE | 2025-01-30 16:45 | RAD_ITS ---
PROCEDURE: CHEST 1 VIEW (PORTABLE) 01/30/2025 REASON FOR EXAM: CHEST PAIN TECHNIQUE: Frontal view of the chest. COMPARISON: 11/20/2024 FINDINGS: Lungs/Pleura: Clear. No pneumothorax or sizable pleural effusion. Heart/Mediastinum: Within normal limits. Bones/Soft tissues: Mild degenerative changes of the visualized spine. Spinal cord stimulator device lead projects over the lower thoracic spinal canal. RAD/Chest 1 View (Portable) IMPRESSION: No acute cardiopulmonary disease. Reading Location: [id number]
--- NOTE | 2025-01-30 16:59 | CT_ITS ---
PROCEDURE: CTA HEAD AND NECK W/ CONTRAST 01/30/2025 REASON FOR EXAM: DIZZINES, SYNCOPAL EPISODES TECHNIQUE: CTA HEAD AND NECK W/ CONTRAST Multiplanar Sagittal and Coronal images were obtained. 3D and MIP post processing was performed. CONTRAST: Isovue 370 VOLUME: 100 mL One or more dose reduction techniques were used (e.g., Automated exposure control, adjustment of the mA and/or kV according to patient size, use of iterative reconstruction technique). RADIATION DOSE SUMMARY: DLP: 3391.85 mGycm COMPARISON: Noncontrast CT head same day 01/30/2025. FINDINGS: CTA HEAD: Patent intracranial arterial vasculature. No large vessel occlusion, flow- limiting stenosis, saccular aneurysm, or vascular malformation identified. CTA NECK: Conventional aortic arch branching. Bilateral cervical carotid and vertebral arteries are widely patent and normal in course and caliber. No aneurysm or dissection. Relatively hypoplastic distal V4 segment of the right vertebral artery compared to the dominant left side. NON-ANGIOGRAPHIC FINDINGS: Mild multilevel degenerative changes of the cervical spine. 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 Mild polypoid mucosal thickening in the right maxillary sinus. CT/CTA Head AND Neck W/ Contrast IMPRESSION: Normal CTA of the head and neck. Reading Location: [id number]
--- NOTE | 2025-01-30 16:59 | CT_ITS ---
PROCEDURE: BRAIN/HEAD WITHOUT CONTRAST 01/30/2025 REASON FOR EXAM: SYNCOPAL EPISODES TECHNIQUE: BRAIN/HEAD WITHOUT CONTRAST Coronal and Sagittal reconstruction series were provided. One or more dose reduction techniques were used (e.g., Automated exposure control, adjustment of the mA and/or kV according to patient size, use of iterative reconstruction technique. RADIATION DOSE SUMMARY: CTDlvol: 24 mGy DLP: 260 mGycm COMPARISON: 02/12/2022. FINDINGS: Mild global parenchymal atrophy. Periventricular white matter hypodensity likely representing mild chronic microvascular ischemia. No evidence of acute hemorrhage or infarction. No extra-axial blood or fluid collections. Right maxillary sinus retention cyst. The mastoid air cells are clear. Calvarial vault and skull base are intact. CT/Brain/Head without Contrast IMPRESSION: No acute intracranial abnormality. Reading Location: [id number]
--- NOTE | 2025-01-30 16:59 | CT_ITS ---
PROCEDURE: ABDOMEN/PELVIS W IV CONT ONLY 01/30/2025 REASON FOR EXAM: ABDOMINAL PAIN TECHNIQUE: ABDOMEN/PELVIS W IV CONT ONLY Coronal and Sagittal reconstruction series were provided. One or more dose reduction techniques were used (e.g., Automated exposure control, adjustment of the mA and/or kV according to patient size, use of iterative reconstruction technique. RADIATION DOSE SUMMARY: CTDlvol: 24 mGy DLP: 3391 mGycm COMPARISON: 10/28/2024. FINDINGS: The lung bases are clear. Coronary artery calcifications. The peripheral soft tissues are unremarkable. Mild atherosclerosis of a normal caliber abdominal aorta. No suspicious lymphadenopathy. Small hepatic cyst. The liver is normal airway is unremarkable. Surgically absent gallbladder. The pancreas and spleen are unremarkable. Stable left adrenal 1.6 cm nodule. Right kidney simple cyst. Symmetric enhancement of bilateral kidneys. No hydroureteronephrosis. The urinary bladder is unremarkable. Penile implant with pump is present. Normal caliber large and small bowel. Diverticulosis. Dense colonic stool. No surrounding inflammatory changes. CT/Abdomen/Pelvis W IV Cont ONLY IMPRESSION: No acute abnormalities of the abdomen or pelvis. Diverticulosis. Dense colonic stool which may suggest constipation. Chronic and ancillary findings as above. Reading Location: [id number]
[2025-01-30] MEDS: 0.9% Normal Saline (1000mL) 1,000 ML 1000 ML IV (17:36)
[2025-01-30 18:13] LABS: AST(SGOT) 23 U/L (<=37); Alanine Aminotransfer ALT/SGPT 31 U/L (<=46); Albumin, Serum 4.3 g/dL (3.4-4.8); Alkaline Phosphatase 62 U/L (40-129); Bilirubin, Direct 0.38 mg/dL (0.00-0.30); Globulin 2.9 g/dL (2.2-4.2); Lipase 24 U/L (13-75); Magnesium 1.9 mg/dL (1.5-2.2)
[2025-01-30 18:24] LABS: Mucous, Urine 0 SEEN /hpf (<or=2+); Red Blood Cells-Urine 0 SEEN /hpf (0-5); Squamous Epithelial Cells - UA 0 SEEN /hpf (0-5)
[2025-01-30 18:45] LABS: Troponin T High Sens 2 HR 29 ng/L (<=22)
[2025-01-30 18:55] LABS: Color, Urine Yellow (Yellow); Glucose, Dipstick Normal (Normal); Ketone-Dipstick Negative (Negative); Leukocyte Esterase-Dipstick Negative /ul (Negative); Nitrite-Dipstick Negative (Negative); Occult Blood-Urine Negative /ul (Negative); Protein-Dipstick 15 mg/dl (Negative); Specific Gravity, Urine 1.005 (1.002-1.030); Urine Bilirubin Dipstick Negative (Negative)
[2025-01-30 20:32] LABS: Troponin T High Sens 4 HR 30 ng/L (<=22)
--- NOTE | 2025-01-30 21:36 | ED.VIS.CHEST ---
HPI History of Present Illness Chief Complaint: Chest Pain Narrative Narrative: Patient is a 69-year-old male presenting to the emergency department for multiple complaints including chest pain and presyncopal episodes. Patient has extensive past medical history as below. Patient states that over the past week he has felt very fatigued. Patient states that he has been trying to work in the garage and anytime he exerts himself he develops black spots in his vision and feels like he is going to pass out. States he is only passed out once. Denies any head injury from this event. He reports midsternal pressure-like chest pain that radiates to the right chest wall. Endorses some intermittent shortness of breath as well. Endorses lower abdominal bloating. Endorses nausea with no vomiting. Denies any diarrhea, dysuria or hematuria. [facility] Medical History Prostate infection History of cardioversion First degree heart block Dyslipidemia Morbid obesity with BMI of 40.0-44.9, adult Paroxysmal atrial flutter Coronary artery disease Thrombocytopenia Failure of outpatient treatment Complicated urinary tract infection Dyspnea Atrial flutter History of shingles Fatigue History of pulmonary embolism Former tobacco use History of TIA (transient ischemic attack) Chest pain Rectal bleeding Pure hypercholesterolemia Acute pyelonephritis Prostate enlargement UTI (urinary tract infection) Dyspnea on exertion Claudication Fibromyalgia BPH (benign prostatic hyperplasia) GERD (gastroesophageal reflux disease) Essential hypertension Atherosclerotic heart disease of [place] coronary artery without angina pectoris Confusion Unstable angina HTN (hypertension) Abnormal myocardial perfusion study H/O percutaneous transluminal coronary angioplasty Abnormal stress test DEENA (obstructive sleep apnea) Pulmonary embolism Obesity Testosterone deficiency Home Medications ?Medication ?Instructions ?Recorded ?Last Taken ?Type albuterol sulfate 90 mcg/actuation 1 - 2 puff inhalation Q6H PRN 07/08/19 02/08/20 History aerosol inhaler Asthma testosterone 4 pump transdermal DAILY low 11/23/21 01/30/25 History testosterone tamsulosin 0.4 mg capsule 0.4 mg PO DAILY prostate 04/29/22 01/30/25 History amlodipine 5 mg tablet 10 mg (2 x 5 mg) PO DAILY htn #90 04/08/24 01/30/25 Rx tabs esomeprazole magnesium 40 mg 40 mg PO BID 10/28/24 01/30/25 History capsule,delayed release finasteride 5 mg tablet 5 mg PO DAILY 10/28/24 01/30/25 History losartan 100 mg tablet 100 mg PO DAILY 10/28/24 01/30/25 History multivitamin (Daily Multi-Vitamin 1 tab PO DAILY 10/28/24 01/30/25 History tablet) oxycodone-acetaminophen 5 mg-325 1 tab PO DAILY PRN pain 10/28/24 Unknown History mg tablet potassium chloride 10 mEq 20 meq PO DAILY 10/28/24 01/30/25 History tablet,extended release atomoxetine 40 mg capsule 100 mg PO DAILY 11/28/24 01/30/25 History semaglutide (weight loss) 0.25 0.25 mg (0.5 mL) subcut QWEEK #2 mL 12/02/24 01/26/25 Rx mg/0.5 mL subcutaneous pen injector (Wegovy) Allergy/AdvReac Type Severity Reaction Status Date / Time Sulfa (Sulfonamide Allergy Unknown Verified 01/30/25 15:46 Antibiotics) Family History Mother CAD (coronary artery disease) Hypertension Hx of CABG Father Hypertension Myocardial infarction Grandfather Myocardial infarction paternal Grandmother Cancer pancreatic CA Grandfather CAD (coronary artery disease) Surgical History Spinal cord stimulator status (~05/2021) History of back surgery History of transurethral resection of prostate History of arthroscopy of right knee History of laparoscopic cholecystectomy Presence of coronary angioplasty implant and graft (~08/2012) Presence of stent in coronary artery (~08/2012) History of left heart catheterization (LHC) History of PTCA (~08/2012) History of tonsillectomy and adenoidectomy History of repair of rotator cuff Social History Smoking Status: Former smoker quit date: 06/19/94 pack-years: 42 how long ago did patient quit smokin second hand exposure: No alcohol intake: current alcohol intake frequency: holidays/special occasions only Alcohol type: beer substance use type: does not use caffeine: Yes Type: carbonated beverages, coffee and tea what type of physical activity do you participate in: none ROS ROS ED ROS Narrative See HPI EXAM Physical Exam Narrative Exam Narrative: Vital signs: Reviewed General: Alert and oriented. No acute distress HEENT: Head is normocephalic and atraumatic, sinuses nontender, pupils equal round and reactive. Nares are patent. Oropharynx and throat exams normal. Neck: Supple without lymphadenopathy nontender Cardiovascular: Mildly tachycardic with regular rhythm, no murmurs. No rubs or gallops. Normal S1 and S2 Respiratory: Clear to auscultation bilaterally. No wheezes, rales, rhonchi Abdominal: Soft and mild tenderness to palpation in the lower abdomen. Normal bowel sounds. No guarding or rebound. Nonsurgical abdomen Extremities: No tenderness. No bruising. Normal range of motion. Normal sensation. Skin: No rash or redness. Neurological: Cranial nerves II through XII are grossly intact. Normal strength and sensation. Normal cerebellar function The rest of the physical exam is unremarkable Const Vital Signs: 01/30/25 15:46 01/30/25 15:57 01/30/25 16:32 Temperature 98.1 F Temperature Source Temporal Pulse Rate 103 H Respiratory Rate 20 H Respiratory Effort Normal Blood Pressure 151/79 H Blood Pressure Mean 103 Pulse Ox 100 100 Oxygen Delivery Method Room Air Room Air 01/30/25 16:45 01/30/25 17:00 01/30/25 18:00 Temperature Temperature Source Pulse Rate 87 86 81 Respiratory Rate 14 14 17 Respiratory Effort Blood Pressure 148/82 H 148/82 H 160/77 H Blood Pressure Mean 104 104 104 Pulse Ox 97 97 98 Oxygen Delivery Method Room Air Room Air Room Air 01/30/25 18:45 01/30/25 19:00 01/30/25 19:56 Temperature 98.6 F Temperature Source Pulse Rate 76 76 75 Respiratory Rate 16 14 16 Respiratory Effort Blood Pressure 149/83 H 134/93 H 146/92 H Blood Pressure Mean 101 105 110 Pulse Ox 96 97 100 Oxygen Delivery Method 01/30/25 19:57 01/30/25 20:00 01/30/25 20:15 Temperature Temperature Source Pulse Rate 77 75 76 Respiratory Rate 16 21 H 15 Respiratory Effort Blood Pressure 146/92 H 143/87 H 132/76 H Blood Pressure Mean 106 104 90 Pulse Ox 99 100 95 Oxygen Delivery Method 01/30/25 21:00 Temperature Temperature Source Pulse Rate 70 Respiratory Rate 17 Respiratory Effort Blood Pressure 143/76 H Blood Pressure Mean 96 Pulse Ox 99 Oxygen Delivery Method MDM MDM MDM Narrative Medical decision making narrative: Patient is a 69-year-old male presenting to the emergency department for multiple complaints including presyncopal episodes and chest pain. Patient was seen and examined. Vitals are stable. Initially patient was mildly tachycardic. He is afebrile saturating 100% on room air. Stable blood pressure. Differential includes but is not limited to: ACS, arrhythmia, intracranial abnormality, pneumonia, sepsis, carotid stenosis, electrolyte abnormality Neuro intact on exam, no deficits. EKG shows sinus tachycardia with a first-degree AV block. No significant ST elevation or depression. No abnormal T wave inversions. No arrhythmia. CBC with no leukocytosis and hemoglobin of 16.6. BMP with slight bump in creatinine at 1.37. Fluid bolus started. Magnesium within normal limits. Glucose of 143. Lactate within normal limits at 1.7. Initial troponin of 31, reflex of 29 and 30. Baseline to compare to was 20 when he was here last. Urinalysis with no evidence of infection. CT brain shows no acute intracranial abnormality. CTA head and neck are normal. CT abdomen pelvis shows no acute findings. Chest x-ray shows no acute radiographic abnormalities. Discussed negative workup with patient. I do find the patient's story of presyncopal episodes with any exertion concerning. I recommended he be admitted for telemetry and further evaluation possibly by cardiology versus neurology. Patient's agreeable with the plan. Hospitalist paged. Impression: Presyncopal episodes chest pain elevated troponin History & Record Review Discussion w/independent historian: Patient and Significant other Lab Data Attestation: I reviewed the patient's lab results. Labs: Laboratory Results - last 24 hr 01/30/25 01/30/25 01/30/25 16:04 17:39 18:01 WBC 8.0 RBC 5.61 Hgb 16.6 H Hct 46.8 MCV 83.4 MCH 29.6 MCHC 35.5 RDW Std Deviation 38.2 RDW Coeff of [place] 12.6 Plt Count 193 MPV 11.2 Immature Gran % (Auto) 0.100 Neut % (Auto) 78.9 H Lymph % (Auto) 13.8 L [place] % (Auto) 6.5 Eos % (Auto) 0.4 Baso % (Auto) 0.3 Absolute Neuts (auto) 6.3 Absolute Lymphs (auto) 1.10 Nucleated RBC % 0 Sodium 141 Potassium 3.7 Chloride 104 Carbon Dioxide 22.1 Anion Gap 15 BUN 14 Creatinine 1.37 H Est GFR (MDRD) Non-Af 57 L BUN/Creatinine Ratio 10.3 Glucose 143 H Lactic Acid 1.7 Calcium 9.5 Magnesium 1.9 Total Bilirubin 0.91 Direct Bilirubin 0.38 H AST 23 ALT 31 Alkaline Phosphatase 62 Troponin T High Sens 31 H D Troponin T Hi Sens 2 Hr 29 H Troponin T Hi Sens 4Hr Total Protein 7.2 Albumin 4.3 Globulin 2.9 Lipase 24 Urine Color Yellow Urine Clarity Clear Urine pH 7.0 Ur Specific Bivins 1.005 Urine Protein 15 H Urine Glucose (UA) Normal Urine Ketones Negative Urine Occult Blood Negative Urine Nitrite Negative Urine Bilirubin Negative Urine Urobilinogen Normal Ur Leukocyte Esterase Negative Urine RBC 0 SEEN Urine WBC 0 SEEN Ur Squamous Epith Cells 0 SEEN Urine Bacteria 0 SEEN Urine Mucus 0 SEEN 01/30/25 20:05 WBC RBC Hgb Hct MCV MCH MCHC RDW Std Deviation RDW Coeff of [place] Plt Count MPV Immature Gran % (Auto) Neut % (Auto) Lymph % (Auto) [place] % (Auto) Eos % (Auto) Baso % (Auto) Absolute Neuts (auto) Absolute Lymphs (auto) Nucleated RBC % Sodium Potassium Chloride Carbon Dioxide Anion Gap BUN Creatinine Est GFR (MDRD) Non-Af BUN/Creatinine Ratio Glucose Lactic Acid Calcium Magnesium Total Bilirubin Direct Bilirubin AST ALT Alkaline Phosphatase Troponin T High Sens Troponin T Hi Sens 2 Hr Troponin T Hi Sens 4Hr 30 H Total Protein Albumin Globulin Lipase Urine Color Urine Clarity Urine pH Ur Specific Bivins Urine Protein Urine Glucose (UA) Urine Ketones Urine Occult Blood Urine Nitrite Urine Bilirubin Urine Urobilinogen Ur Leukocyte Esterase Urine RBC Urine WBC Ur Squamous Epith Cells Urine Bacteria Urine Mucus Radiography Chest X-Ray - ED: 2 View, Read by ED Physician, No Acute Disease and No Infiltrates Diagnostic Testing: Clinical Impression(s) from Imaging Studies Chest X-Ray 01/30/25 16:45 IMPRESSION: No acute cardiopulmonary disease. Reading Location: [facility] Abdomen/Pelvis CT 01/30/25 16:59 IMPRESSION: No acute abnormalities of the abdomen or pelvis. Diverticulosis. Dense colonic stool which may suggest constipation. Chronic and ancillary findings as above. Reading Location: [facility] Brain CT 01/30/25 16:59 IMPRESSION: No acute intracranial abnormality. Reading Location: [facility] Head/Neck CTA 01/30/25 16:59 IMPRESSION: Normal CTA of the head and neck. Reading Location: [facility] Discharge Plan Triage Chief Complaint: Chest Pain Other Complaint: Weakness ED Provider: Chapis Polo Dx/Rx/DC Orders Prescriptions: No Action tamsulosin 0.4 mg capsule 0.4 mg PO DAILY testosterone 20.25 mg/1.25 gram (1.62 %) gel in metered-dose pump 4 pump transdermal DAILY Patient Comments: APPLY 4 PUMPS DAILY albuterol sulfate 1 INHALER inhaler 1 - 2 puff INHALATION Q6H PRN (Reason: Asthma) esomeprazole magnesium 40 mg capsule,delayed release(DR/EC) 40 mg PO BID Patient Comments: PT ONLY TAKES ONCE A DAY losartan 100 mg tablet 100 mg PO DAILY potassium chloride 10 mEq tablet extended release 20 meq PO DAILY finasteride 5 mg tablet 5 mg PO DAILY multivitamin [Daily Multi-Vitamin] Tablet 1 tab PO DAILY oxycodone-acetaminophen 5-325 mg tablet 1 tab PO DAILY PRN (Reason: pain) atomoxetine 40 mg capsule 100 mg PO DAILY amlodipine 5 mg tablet 10 mg PO DAILY Qty: 90 3RF [place] 0.25 mg/0.5 mL pen injector 0.25 mg subcut QWEEK Qty: 2 0RF Rx Instructions: administer weeks 1 through 4 of therapy Primary Care Provider: Jagjit Myers Referrals: Jagjit Myers MD [Primary Care Provider] - Print Language: Japanese
--- NOTE | 2025-01-30 22:17 | PCM.HP.STD ---
[facility] General Date of Admission: 01/30/25 Date of Service: 01/30/25 Chief Complaint: Chest Pain and Near Syncope. HPI Narrative JERO CHAPA, is a 69 M with a past medical history of essential hypertension; on amlodipine and losartan, former tobacco abuse (quit 1994), obesity (class II); with BMI of 38.6 this admission on semaglutide, DEENA; on CPAP, CAD; s/p LAD stent (2012), history of paroxysmal atrial fibrillation; currently not on anticoagulation, history of PE, history of TIA, ADHD; on atomoxetine, testosterone deficiency; on HRT, BPH; on finasteride plus tamsulosin, GERD; on esomeprazole twice daily, OA and history of recent chest pain workup; other negative stress test done here by [facility] in November 21, 2024 that revealed LVEF of ~65% who presents to [facility] ER complaining of chest pain and near syncope. Mr. Chapa reports his symptoms began approximately 1 week prior to admission with progressively worsening fatigue and patient stating he is having black spots in his vision when he exerts himself and feels like he is going to pass out, but he is only completely passed out once. He denies associated head injury, loss of consciousness or other significant trauma related to his syncopal event. He also admits to chest pain that he reports is midsternal, pressure-like and radiating to the Right chest wall complicated by intermittent shortness of breath that is made worse with exertion - which is nearly identical to that it was physical and general symptom that heralded his previous LAD stent placement. He also admits to intermittent lower abdominal bloating and nausea but no vomiting, diarrhea, constipation fever, chills, dysuria, hematuria, headache or rash. In the ER he was noted to have a very mildly elevated initial troponin T of 31 ng/L followed by a second declining troponin T of 29 ng/L with CT scan of the abdomen/pelvis with IV contrast done in the ER that revealed no acute abnormalities of the abdomen and pelvis with diverticulosis and dense colonic stool which may suggest constipation in addition to penile implant with pump he also underwent CT brain without contrast that revealed no acute intracranial abnormality in addition to CTA of the head and neck with IV contrast that was essentially unremarkable with otherwise unremarkable laboratory studies and vital signs. He was then admitted to the PCU under observation status for ongoing care for stay that is expected to be less than 2 midnights. [facility] Medical History Prostate infection History of cardioversion First degree heart block Dyslipidemia Morbid obesity with BMI of 40.0-44.9, adult Paroxysmal atrial flutter Coronary artery disease Thrombocytopenia Failure of outpatient treatment Complicated urinary tract infection Dyspnea Atrial flutter History of shingles Fatigue History of pulmonary embolism Former tobacco use History of TIA (transient ischemic attack) Chest pain Rectal bleeding Pure hypercholesterolemia Acute pyelonephritis Prostate enlargement UTI (urinary tract infection) Dyspnea on exertion Claudication Fibromyalgia BPH (benign prostatic hyperplasia) GERD (gastroesophageal reflux disease) Essential hypertension Atherosclerotic heart disease of [place] coronary artery without angina pectoris Confusion Unstable angina HTN (hypertension) Abnormal myocardial perfusion study H/O percutaneous transluminal coronary angioplasty Abnormal stress test DEENA (obstructive sleep apnea) Pulmonary embolism Obesity Testosterone deficiency Home Medications ?Medication ?Instructions ?Recorded ?Last Taken ?Type albuterol sulfate 90 mcg/actuation 1 - 2 puff inhalation Q6H PRN 07/08/19 02/08/20 History aerosol inhaler Asthma testosterone 4 pump transdermal DAILY low 11/23/21 01/30/25 History testosterone tamsulosin 0.4 mg capsule 0.4 mg PO DAILY prostate 04/29/22 01/30/25 History amlodipine 5 mg tablet 10 mg (2 x 5 mg) PO DAILY htn #90 04/08/24 01/30/25 Rx tabs esomeprazole magnesium 40 mg 40 mg PO BID 10/28/24 01/30/25 History capsule,delayed release finasteride 5 mg tablet 5 mg PO DAILY 10/28/24 01/30/25 History losartan 100 mg tablet 100 mg PO DAILY 10/28/24 01/30/25 History multivitamin (Daily Multi-Vitamin 1 tab PO DAILY 10/28/24 01/30/25 History tablet) oxycodone-acetaminophen 5 mg-325 1 tab PO DAILY PRN pain 10/28/24 Unknown History mg tablet potassium chloride 10 mEq 20 meq PO DAILY 10/28/24 01/30/25 History tablet,extended release atomoxetine 40 mg capsule 100 mg PO DAILY 11/28/24 01/30/25 History semaglutide (weight loss) 0.25 0.25 mg (0.5 mL) subcut QWEEK #2 mL 12/02/24 01/26/25 Rx mg/0.5 mL subcutaneous pen injector (Wegovy) Allergy/AdvReac Type Severity Reaction Status Date / Time Sulfa (Sulfonamide Allergy Unknown Verified 01/30/25 15:46 Antibiotics) Family History Mother CAD (coronary artery disease) Hypertension Hx of CABG Father Hypertension Myocardial infarction Grandfather Myocardial infarction paternal Grandmother Cancer pancreatic CA Grandfather CAD (coronary artery disease) Surgical History Spinal cord stimulator status (~05/2021) History of back surgery History of transurethral resection of prostate History of arthroscopy of right knee History of laparoscopic cholecystectomy Presence of coronary angioplasty implant and graft (~08/2012) Presence of stent in coronary artery (~08/2012) History of left heart catheterization (LHC) History of PTCA (~08/2012) History of tonsillectomy and adenoidectomy History of repair of rotator cuff Social History Smoking Status: Former smoker quit date: 06/19/94 pack-years: 42 how long ago did patient quit smokin second hand exposure: No alcohol intake: current alcohol intake frequency: holidays/special occasions only Alcohol type: beer substance use type: does not use caffeine: Yes Type: carbonated beverages, coffee and tea what type of physical activity do you participate in: none ROS ROS Narrative Review of Systems: Constitutional: Patient denies fever or chills. Eyes: Patient admits to dark spots in his visual field, anxiety recent episode of syncope or presyncope. ENT: Patient denies runny nose, sore throat or ear pain. CV: Patient denies chest pain as per HPI syncope and presyncope. : Patient denies dysuria or hematuria. MSK: Patient admits to dyspnea on exertion with easy fatigability. Skin: Patient denies rash or abscess. Psych: Patient denies significant uncontrolled depression or anxiety. Neuro: Denies headache, paresthesias or focal neurologic deficits. Allergies: Patient denies swelling, Swelling or erythema. Hematology: Patient denies easy bleeding and easy stability. Endocrinology: Patient denies polyuria, polydipsia, polyphagia or heat/cold intolerance. 14 point ROS otherwise negative except for positives noted above in HPI. Vital Signs Vital Signs Vital Signs: 01/30/25 15:46 01/30/25 15:57 01/30/25 16:32 Temperature 98.1 F Temperature Source Temporal Pulse Rate 103 H Respiratory Rate 20 H Respiratory Effort Normal Blood Pressure 151/79 H Blood Pressure Mean 103 Pulse Ox 100 100 Oxygen Delivery Method Room Air Room Air 01/30/25 16:45 01/30/25 17:00 01/30/25 18:00 Temperature Temperature Source Pulse Rate 87 86 81 Respiratory Rate 14 14 17 Respiratory Effort Blood Pressure 148/82 H 148/82 H 160/77 H Blood Pressure Mean 104 104 104 Pulse Ox 97 97 98 Oxygen Delivery Method Room Air Room Air Room Air 01/30/25 18:45 01/30/25 19:00 01/30/25 19:56 Temperature 98.6 F Temperature Source Pulse Rate 76 76 75 Respiratory Rate 16 14 16 Respiratory Effort Blood Pressure 149/83 H 134/93 H 146/92 H Blood Pressure Mean 101 105 110 Pulse Ox 96 97 100 Oxygen Delivery Method 01/30/25 19:57 01/30/25 20:00 01/30/25 20:15 Temperature Temperature Source Pulse Rate 77 75 76 Respiratory Rate 16 21 H 15 Respiratory Effort Blood Pressure 146/92 H 143/87 H 132/76 H Blood Pressure Mean 106 104 90 Pulse Ox 99 100 95 Oxygen Delivery Method 01/30/25 21:00 01/30/25 21:45 01/30/25 22:00 Temperature Temperature Source Pulse Rate 70 67 76 Respiratory Rate 17 18 21 H Respiratory Effort Blood Pressure 143/76 H 159/90 H 143/67 H Blood Pressure Mean 96 109 89 Pulse Ox 99 94 95 Oxygen Delivery Method Weight Weight: 330 lb 7.567 oz Body Mass Index (BMI) 39.2 Physical Exam Const alert, oriented x3 and no apparent distress Constitutional Narrative: Very pleasant patient with nontoxic in appearance but anxious about worsening condition. General Appearance: cooperative HEENT normocephalic, head/scalp atraumatic, hearing grossly normal bilaterally and moist oral mucous membranes Eyes PERRL, EOMs intact bilaterally and conjunctivae normal Neck no lymphadenopathy, supple and no JVD Resp normal respiratory effort, no retractions, no use of accessory muscles and clear to auscultation bilaterally Cardio regular rate and regular rhythm GI normal to inspection, nondistended, normoactive bowel sounds, soft to palpation, non-tender and non-distended GI Narrative: Obese. Extremity normal to inspection, full ROM and no clubbing, cyanosis or edema Skin Skin Narrative: Patient has evidence of rash, abscess, wounds or jaundice. Neuro oriented x3, CN's II-XII intact bilaterally, moves all extremities and no focal motor deficits Sensorium / Orientation: awake, alert, oriented to person, oriented to place and oriented to time Speech: speech normal Psych affect normal Results Medical Records Data Attestation: I reviewed the patient's medical records Lab / Micro Data Attestation: I reviewed the patient's lab results. 01/30/25 16:04 01/30/25 16:04 Labs: Laboratory Results - last 24 hr 01/30/25 16:04: WBC 8.0, RBC 5.61, Hgb 16.6 H, Hct 46.8, MCV 83.4, MCH 29.6, MCHC 35.5, RDW Std Deviation 38.2, RDW Coeff of L[place] 12.6, Plt Count 193, MPV 11.2, Immature Gran % (Auto) 0.100, Neut % (Auto) 78.9 H, Lymph % (Auto) 13.8 L, [place] % (Auto) 6.5, Eos % (Auto) 0.4, Baso % (Auto) 0.3, Absolute Neuts (auto) 6.3, Absolute Lymphs (auto) 1.10, Nucleated RBC % 0, Sodium 141, Potassium 3.7, Chloride 104, Carbon Dioxide 22.1, Anion Gap 15, BUN 14, Creatinine 1.37 H, Est GFR (MDRD) Non-Af 57 L, BUN/Creatinine Ratio 10.3, Glucose 143 H, Calcium 9.5, Troponin T High Sens 31 H D 01/30/25 17:39: Lactic Acid 1.7, Magnesium 1.9, Total Bilirubin 0.91, Direct Bilirubin 0.38 H, AST 23, ALT 31, Alkaline Phosphatase 62, Total Protein 7.2, Albumin 4.3, Globulin 2.9, Lipase 24 01/30/25 18:01: Troponin T Hi Sens 2 Hr 29 H, Urine Color Yellow, Urine Clarity Clear, Urine pH 7.0, Ur Specific Brady 1.005, Urine Protein 15 H, Urine Glucose (UA) Normal, Urine Ketones Negative, Urine Occult Blood Negative, Urine Nitrite Negative, Urine Bilirubin Negative, Urine Urobilinogen Normal, Ur Leukocyte Esterase Negative, Urine RBC 0 SEEN, Urine WBC 0 SEEN, Ur Squamous Epith Cells 0 SEEN, Urine Bacteria 0 SEEN, Urine Mucus 0 SEEN 01/30/25 20:05: Troponin T Hi Sens 4Hr 30 H Imaging Radiology Impression Chest X-Ray 01/30/25 16:45 IMPRESSION: No acute cardiopulmonary disease. Reading Location: [facility] Abdomen/Pelvis CT 01/30/25 16:59 IMPRESSION: No acute abnormalities of the abdomen or pelvis. Diverticulosis. Dense colonic stool which may suggest constipation. Chronic and ancillary findings as above. Reading Location: [facility] Brain CT 01/30/25 16:59 IMPRESSION: No acute intracranial abnormality. Reading Location: [facility] Head/Neck CTA 01/30/25 16:59 IMPRESSION: Normal CTA of the head and neck. Reading Location: [facility] Assessment & Plan Assessment/Plan (1) Chest pain: QUALIFIERS: Chest pain type: unspecified Qualified Code(s): R07.9 - Chest pain, unspecified (2) Syncope: QUALIFIERS: Syncope type: unspecified Qualified Code(s): R55 - Syncope and collapse (3) Pre-syncope: (4) Atherosclerotic heart disease of [place] coronary artery without angina pectoris: QUALIFIERS: [place] vs. transplanted heart: [place] heart Qualified Code(s): I25.10 - Atherosclerotic heart disease of [place] coronary artery without angina pectoris (5) Obesity (BMI 30-39.9): PLAN: Plan 1. Chest Pain with Syncope and Presyncope with mildly elevated troponin T of 31 ng/L present on admission in the setting of recent negative stress test done here November 21, 2024 - Admit to PCU under observation status. Check new echocardiogram as the last one was done here on December 07, 2023 which revealed LVEF ~65%; with severe biatrial dilatation, indeterminate diastolic dysfunction and mild (1+) mitral valve insufficiency. Check carotid Doppler to evaluate for stenosis. Finally, we we will consult Stephani our group see this patient on rounds in the a.m. for further recommendations with patient having recurrent chest pain and syncope/presyncope in spite of negative stress test and appropriate treatment without appreciated advanced. 2. CAD; s/p LAD stent (2012) with similar pattern of angina heralding stent placement complicating #1 - Noted. 3. Obesity (class II); with BMI of 38.6 this admission on semaglutide plus DEENA; on CPAP adding to the burden of disease outlined in #1 - Weight loss will be recommended. Check TSH. This complicates his case and may hamper recovery. 4. Essential hypertension; on amlodipine and losartan - Maintain home regimen. 5. Former tobacco abuse (quit 1994) - Noted. 6. History of paroxysmal atrial fibrillation; currently not on anticoagulation - Patient in NSR. 7. History of PE - Noted. 8. History of TIA - Noted. 9. ADHD; on atomoxetine - Maintain current treatment. 10. Testosterone deficiency; on HRT - Hold while inpatient. 11. BPH; on finasteride plus tamsulosin - Current therapy to be resumed as previous. 12. GERD; on esomeprazole twice daily - Continue PPI. 13. OA - Stable. Give acetaminophen prn. 14. DVT prophylaxis - Enoxaparin 40 mg sq BID. Total time: Approximately (but not less than) 70 minutes. Charges/Coding Visit Charges OBSV E&M: 31952 Observ/hosp same date L2
--- OUTSIDE RECORDS SUMMARY | 2025-01-30 22:48 | XMS RPT_ITS | CCD ---
Author Organization [facility] Care Team Providers Care Ultrasound Tech Name Role Phone Aurora ZIMMERMAN, Sara Carter Unavailable Unavailable JAGJIT SOUZA Unavailable Unavailable ALYSAJAGJIT GUY Unavailable Unavailable JAGJIT SOUZA Unavailable Unavailable Erlin Mohr Unavailable Unavailable Hernán ZIMMERMAN, Dyana Nelson Unavailable [phone] Jagjit Cheema MD Primary Care Provider 1([facility])[phone] Dr. Jagjit Cheema Primary Care Provider 1([facility])[phone] Dr. Sergo Perez Attending Provider 1([facility])-[phone] Prebish TECHNICAL APPLICATIONS SPECIALIST, TECHNICAL APPLICATIONS SPECIALIST-C Isabel Referring Provider Dr. Jagjit Cheema Referring Provider 1([facility])[phone] Avila FISHER NP-Harper Galvin Attending Provider Jagjit Cheema MD Primary Care Provider Dr. Jagjit Cheema Primary Care Provider Jagjit Cheema MD Primary Care Provider 1([facility])[phone] Dr. Jagjit Cheema Primary Care Provider Dr. Jagjit Cheema Referring Provider 1([facility])[phone] Willis Alfred Attending Provider Jagjit Cheema MD Primary Care Provider 1([facility])[phone] SARA Gramajo NP Attending Provider Giacomo FISHER, NATALIA-Harper Braun Attending Provider Dr. Willis Alfred Referring Provider Dr. Willis Alfred Other Provider 1([facility])[phone] Shaji Wyatt Attending Provider Dr. Jagjit Cheema Primary Care Provider Deni, Dr. Danielson Referring [...] Primary Care Provider JAGJIT CHEEMA Referring Unavailable DENI, JAGJIT Sanders Primary Care Unavailable JAGJIT CHEEMA Referring Unavailable DENI, JAGJIT Sanders Primary Care Unavailable Haagen WET PLANT OPERATOR.BIOSOLIDS MANAGEMENT TECHNICIAN, Susan Unavailable Suppan WET PLANT OPERATOR.BIOSOLIDS MANAGEMENT TECHNICIAN, Beverley A Unavailable Suppan WET PLANT OPERATOR.BIOSOLIDS MANAGEMENT TECHNICIAN, Beverley A Unavailable [phone] Suppan WET PLANT OPERATOR.BIOSOLIDS MANAGEMENT TECHNICIAN, Beverley A Unavailable [phone] Dr. Jagjit Cheema MD Primary Care Provider Dr. Jagjit Cheema MD Referring Provider Hussein Christina Attending Provider Dr. Robby Mclaughlin DO Emergency Provider Dr. Robby Mclaughlin DO Attending Provider Dr. Jose Alberto Contreras MD Emergency Provider Diane CONTI, Dr. Abrams Attending Provider Gilda CONTI, Dr. Barajas Attending Provider Gilda CONTI, Dr. Barajas Referring Provider Gilda CONTI, Dr. Barajas Other Provider Yobany CONTI, Dr. Walker Attending Provider DENI, JAGJIT Sanders Referring Unavailable DENI, JAGJIT Sanders Primary Care Unavailable DENI, JAGJIT Sanders Attending Unavailable DENI, JAGJIT Sanders Primary Care Unavailable DENI, JAGJIT Sanders Primary Care Unavailable SUSAN KERR Referring Unavailable DENI, JAGJIT Sanders Primary Care Unavailable SUSAN KERR Referring Unavailable DENI, JAGJIT Sanders Primary Care [...] BEVERLEY GUTIERREZ Attending Unavailable DENI, JAGJIT Sanders Primary Care [...] Unavailable DENI, JAGJIT Sanders Primary Care Unavailable DEIN, JAGJIT Sanders Referring Unavailable DENI, JAGJIT Sanders Attending Unavailable DENI, JAGJIT Sanders Primary Care Unavailable PODLOGARLISA Attending Unavailable DENI, JAGJIT Sanders Primary Care Unavailable ROJAS DOMINGUEZ Attending Unavailab le DENI, JAGJIT Sanders Primary Care Unavailable YESICA BACON Attending Unavailable DENI, JAGJIT Sanders Referring Unavailable DENI, JAGJIT Sanders Primary Care Unavailable DENI, JAGJIT Sanders Primary Care Unavailable DENI, JAGJIT Sanders Referring Unavailable PODLOGARLISA Referring Unavailable DENI, JAGJIT Sanders Primary Care Unavailable PODLOGAR, LISA Referring Unavailable DENI, JAGJIT Sanders Primary Care Unavailable DENI, JAGJIT Sanders Attending Unavailable DENI, JAGJIT Sanders Primary Care Unavailable SUSAN KERR Attending Unavailable SELF Referring Unavailable DENI, JAGJIT Sanders Primary Care Unavailable DENI, JAGJIT Sanders Attending Unavailable JAGJIT CHEEMA Primary Care Unavailable Jose Alberto Contreras Attending Unavailable [place], Jagjit Primary Care Unavailable Robby Mclaughlin Attending Unavailable Deni, Jagjit Primary Care Unavailable Roof NATALIA, Hussein Galvin Attending Unavailable [place] bagley Referring Unavailable [place], Jagjit Primary Care Unavailable [place], Jagjit Primary Care Unavailable Karl Vo Consulting Unavailable Karl Vo Referring Unavailable Denise Haywood Attending Unavailcuba e Jagjit Cheema Referring Unavailable Roof NATALIA, Hussein Galvin Attending Unavailable [place], Jagjit Primary Care Unavailable Sergo Perez Attending Unavailable [place], Jagjit Primary Care Unavailable [place], Jagjit Primary Care Unavailable Karl Vo Attending Unavailable Karl Vo Referring Unavailable Mayelin Rodriguez Attending Unavailable Mayelin Rodriguez Referring Unavailable [place] Primary Care Unavailable Allergies Allergy Classification Reported Allergen(s) Allergy Type Date of Onset Reaction(s) Facility Sulfonamides (antibiotic) (3 sources) Sulfonamides (Antibiotic) Drug Allergy 5 [facility] Work Phone: (3 sources) Sulfonamides (Antibiotic) drug allergy 3 [facility] Work Phone: (1 source) Sulfonamides (Antibiotic) Drug allergy (disorder) [facility] (20 sources) Sulfonamides (Antibiotic); Translations: [SULFA (SULFONAMIDE ANTIBIOTICS)] Drug Allergy [facility] Work Phone: (17 sources) Sulfonamides (Antibiotic) Allergy to substance 2 Unknown [facility] (1 source) Sulfonamides (Antibiotic) Drug allergy (disorder) 5 [facility] Repository Medications Current Medications Medication Drug Class(es) Dates Sig (Normalized) Sig (Original) acetaminophen 325 mg / oxyCODONE hydrochloride 5 mg oral tablet (20 sources) Opioid Agonist Start: 10-28-2024 Oxycodone-Acetamin ophen 5-325 mg tablet Active 1 {tbl} PO DAILY as needed for pain October 28, 2024 12:00am oxyCODONE-acetam inophen 5-325 mg (PERCOCET) Take 1-2 tablets by mouth as needed. Active oxyCODONE-acetam inophen 5-325 mg [...] Comment on above: Take 1 tablet by dweayne five times daily for 7 days. Take at first signs of outbreak. [id number] actuat albuterol 0.09 mg/actuat metered dose [...] TABS One tablet by mouth daily ASPIRIN [id number] Rubina Barger RN Start: 07-18-2012 take 1 tablet by dewayne th once daily ASPIRIN 81 MG TABS One tablet by mouth daily ASPIRIN [id number] Rubnia Brager RN Comment on above: Take 81 mg by mouth once daily. atomoxetine 100 mg oral capsule (20 sources) Norepinephrine Reuptake Inhibitor Start: 12-25-19 End: 12-25-19 take 1 capsule by mouth once daily atomoxetine (STRATTERA) 100 mg capsule Indications: Attention deficit disorder, unspecified type Take 1 capsule by mouth once daily. 90 capsule 3 12/24/2024 12/24/2025 Active Start: 09-23-2024 End: 04-19-2025 atomoxetine (STRATTERA) 40 m g capsule Take 1 capsule by mouth once daily. For one week and then back to 80 mg a day. Start once the pristiq is done. 60 capsule 5 10/21/2024 12/24/2024 Discontinued Start: 11-29-2023 End: 11-28-2024 take 1 capsule by mouth once daily atomoxetine (STRATTERA) 100 mg capsule Indications: ADHD (attention deficit hyperactivity disorder), combined type Take 1 capsule by mouth once daily. 30 capsule 11 11/29/2023 09/23/2024 Discontinued Start: 10-25-2023 End: 11-29-2023 take 1 capsule by mouth once daily atomoxetine (STRATTERA) 40 mg capsule Indications: ADHD (attention deficit hyperactivity disorder), combined type Take one cap po q day for one week and then increase to 80 mg a day 60 capsule 11 10/25/2023 11/29/2023 Discontinued CPAP (20 sources) Start: [...] tablet (16 sources) Tetracycline-class Drug Start: End: 5 take 1 tablet by mouth twice daily [...] Take 1 tablet by dewayne th twice daily for 10 days. esomeprazole 40 mg delayed release oral capsule (20 sources) Proton Pump Inhibitor Start: 3 End: take 1 capsule by mouth twice [...] 3:09pm Start: 07-10-[address] [facility] once daily NEXIUM 40 MG CPDR One tablet by mouth daily ESOMEPRAZOLE MAGNESIUM [id number] Dionisio Herrera RN Comment on above: Take 1 capsule by mo [facility] twice daily before meals. Take 1 capsule by mo [facility] two times a day before meals. finasteride [...] th once daily. Multivitamin (Daily Multi-Vitamin) tablet (4 sources) Start: 10-28-2024 Multivitamin (Daily Multi-Vitamin) tablet Active 1 {tbl} PO DAILY October 28, 2024 12:00am MULTIVITAMIN TAB (20 sources) Start: 09-26-2007 take 1 tablet by mouth once daily MULTIVITAMIN TAB Take 1 tablet by mouth once daily. 0 09/26/2007 Active Start: 09-26-2007 take 1 tablet by dewayne th once daily MULTIVITAMIN TAB Take one(1) tablet daily BY MOUTH. 0 09/26/2007 Active Comment on above: Take one(1) tablet d aily BY MOUTH. Multivitamin,Tx-Iro n-Minerals (15 sources) Start: 12-10-2013 take 1 tablet by mouth once daily Multivitamin,Tx-Ir on-Minerals Active 1 TABLET PO DAILY December 10, 2013 8:26am Start: 12-10-2013 take 1 tablet by dewayne th once daily Multivitamin,Rb-Nznx-Eifnrbto Active 1 T ABLET PO DAILY December 09, 2013 11:00pm Start: 12-10-2013 take 1 tablet by dewayne th once daily Multivitamin,Rh-Aksy-Ujqvetiz Active 1 T ABLET PO DAILY December [...] daily. 30 tablet 0 01/09/2024 01/14/2024 Active polyethylene glycol 3350 525519 mg / potassium chloride 2970 mg / sodium bicarbonate 6740 mg / sodium chloride 5860 mg / sodium sulfate 48843 mg powder for oral solution (1 source) Osmotic Laxative Start: 12-31-2024 End: 12-31-2024 peg 3350-Electrolytes (GOLYTELY) 236-22.74-6.74 -5.86 gram suspension Indications: Rectal bleeding Take 4,000 mL by mouth one time only for 1 dose. Refer to printed prep instructions from your provider. 4000 mL 12/31/2024 12/31/2024 Active potassium chloride 10 meq extended release [...] November 23, 2021 12:00am Start: 11-16-2021 End: 12-30-2024 take 2 tablets by mouth once daily potassium chloride (K-TAB) 10 mEq tablet Indications: Hypokalemia Take 2 tablets by mouth once daily. 180 tablet 1 12/30/2024 Active Start: 08-27-2021 End: 11-13-2021 take 2 [...] Start: 01-30-2013 take 1 tablet by dewayne once daily KLOR-CON M20 20 MEQ CR-TABS One tablet by mouth daily POTASSIUM CHLORIDE DEB CR [id number] Willis Alfred MD Start: 01-30-2013 take 1 tablet by dewayne th once daily KLOR-CON M20 20 MEQ CR-TABS One tablet by mouth daily POTASSIUM CHLORIDE DEB CR [id number] Willis Alfred MD Comment on above: Take 2 tablets by mo [facility] once daily. predniSONE 20 mg oral tablet [...] tab daily for 3 days with food. semaglutide, weight loss, (WEGOVY) 0.5 mg/0.5 mL pen injector (5 sources) Start: 01-02-20 End: 01-30-20 inject 0.5 mg by subcutaneous injection every week semaglutide, weight loss, (WEGOVY) 0.5 mg/0.5 mL pen injector Inject 0.5 mg subcutaneously one time a week for 28 days. Patient should start on January 01, 2025. 2 mL 01/01/2025 01/29/2025 Active tamsulosin hydrochloride 0.4 mg oral capsule (20 sources) alpha-Adrenergi c Jacob Start: 04-29-20 take 0.4 mg by mouth once daily tamsulosin (FLOMAX) 0.4 mg Take 0.4 mg by mouth once daily. 08/07/2023 Active Start: 10-23-2018 End: 07-26-2021 take [...] 100 mg every 1 weeks TESTOSTERONE CYPIONATE [id number] Dyana Alvarez PA-C Start: 09-04-2013 TESTOSTERONE C YPIONATE 100 MG/ML SOLN 150 mg every 2 weeks TESTOSTERONE CYPIONATE [id number] Willis Alfred MD Comment on above: APPLY 4 PUMPS TOPICA LLY DAILY. Tirzepatide (Weight Loss) (2 sources) Start: 11-28-2024 Tirzepatide (Weight Loss) (Zepbound) 2.5 mg/0.5 mL pen injector Active 2.5 mg SC EVERY WEEK 2 November 28, 2024 12:00am for 4 weeks Completed/Discontinued Medications Medication Drug Class(es) Dates Sig (Normalized) Sig (Original) acetaminophen 325 mg oral tablet (19 sources) Start: 07-25-2018 End: 11-27-2018 Acetaminophen 325 [...] above: Take 1 tablet by dewayne twice daily. atorvastatin 20 mg oral tablet [...] One tablet by mouth daily ATORVASTATIN CALCIUM [id number] Willis Alfred MD Comment on above: Take [...] th once daily WELLBUTRIN SR 150 MG [id number] One tablet by mouth daily BUPROPION HCL [id number] Dyana Alvarez PA-C Start: 01-08-2015 take 1 tablet by dewayne th once daily WELLBUTRIN SR 150 MG [id number] One tablet by mouth daily BUPROPION HCL [id number] Dyana Alvarez PA-C Comment on above: Take 1 tablet by dewayne th once daily. celecoxib 200 mg oral capsule (19 sources) Nonsteroidal Anti-inflammatory Drug Start: End: take 1 capsule by mouth once daily [...] 11:35am Start: 05-01-2018 take 1 capsule by mo [facility] once daily Cholecalciferol, Vitamin D3, (VITAMIN D) 1,000 unit cap Indications: Vitamin D deficiency Take 1 capsule by mouth once daily. 90 capsule 3 05/01/2018 Active Comment on above: Take 1 capsule by mo [facility] once daily. ciprofloxacin 500 mg oral tablet [...] Discontinued 500 mg PO TWICE A DAY 14 July 10, 2019 1:00am December 05, 2019 [...] One tablet by mouth daily CITALOPRAM HYDROBROMIDE [id number] Willis Alfred MD colchicine 0.6 mg oral tablet (6 sources) Start: 12-11-2021 take 2 tablets by mouth every hour colchicine 0.6 mg tablet Take 2 tablets by mouth, wait one hour and take the third tablet. 3 tablet 0 12/11/2021 Active Comment on above: Take 2 tablets by mo [facility], wait one hour and take the third [...] Discontinued Start: 10-04-20[address] [facility] once daily desvenlafaxine ER (PRISTIQ) 50 mg [...] CAPS One tablet by mouth daily DUTASTERIDE [id number] Dyana Alvarez PA-C enteric contrast (will be [...] 03/08/2024 03/08/2024 Discontinued ertapenem 1000 mg injection (19 sources) Penem Antibacterial Start: 07-25-2018 End: 07-28-2018 Ertapenem 1 GM/10 ML Vial Discontinued 1 g IV EVERY 24 HOURS July 25, 2018 1:00am July 28, 2018 11:33am Fish Oils (6 sources) Start: 07-18-2012 End: 01-30-2013 take 1 tablet by mouth once daily FISH OIL CAPS One tablet by mouth daily OMEGA-3 FATTY ACIDS CAPS [id number] Willis Alfred MD Start: 07-18-2012 take 1 tablet by dewayne th once daily FISH OIL CAPS One tablet by mouth daily OMEGA-3 FATTY ACIDS CAPS [id number] Willis Alfred MD gabapentin 300 mg oral capsule (20 sources) Anti-epileptic Agent Start: 06-27-2023 End: 07-26-2023 [...] / neomycin 3.5 mg/ml / polymyxin b [id number] unt/ml otic solution (17 sources) Aminoglycoside Antibacterial, Polymyxin-class Antibacterial, Corticosteroid Start: 02-12-2022 End: 04-29-2022 Neomycin-Polymyxi n-Hc 3.5-10,000-1 mg/mL-unit/mL-% solution Discontinued 4 NMA RIGHT EAR EVERY 6 HOURS February 12, 2022 12:00am April 29, 2022 11:07am Start: 02-12-2022 End: 04-29-2022 Jhgeqsdj-Ievmpjcii-Wt Discon tinued 4 DRP RIGHT EAR EVERY 6 HOURS February 12, 2022 12:00am April 29, 2022 11:07am ibuprofen 600 mg oral tablet (19 sources) Nonsteroidal Anti-inflammatory Drug Start: 07-10-2019 End: 10-01-2020 take 1 tablet by mouth every six hours as needed for pain Ibuprofen 600 MG tablet Discontinued 600 mg PO EVERY 6 HOURS NEEDED as needed for Pain Score July 10, 2019 1:19pm October 01, 2020 [...] One tablet by mouth daily (STOP) LISINOPRIL [id number] Dyana Alvarez PA-C Start: 07-10-2012 End: 07-18-2012 take 1 tablet by mouth once daily LISINOPRIL 10 MG TABS One tablet by mouth daily LISINOPRIL [id number] Dionisio Herrera RN meclizine hydrochloride 25 mg oral [...] oral tablet (20 sources) beta-Adrenergic Jacob Start: 018 End: 019 take 1 tablet by mouth twice daily Metoprolol Tartrate 25 mg tablet Discontinued 25 mg PO TWICE A DAY 180 May 30, 2018 4:30pm November 27, 2018 3:11pm montelukast 10 mg oral tablet (6 sources) Leukotriene Receptor Antagonist Start: 013 End: 013 take 1 tablet by mouth once daily SINGULAIR 10 MG TABS One tablet by mouth daily MONTELUKAST SODIUM [id number] Dionisio Herrera RN MULTIPLE VITAMINS-MINERALS (1 source) Start: take 1 tablet by mouth once daily CENTRUM SILVER TABS One tablet by mouth daily MULTIPLE VITAMINS-MINERALS [id number] Willis Alfred MD MULTIPLE VITAMINS-MINERALS (2 sources) Start: take 1 tablet by mouth once daily CENTRUM SILVER TABS One tablet by mouth daily MULTIPLE VITAMINS-MINERALS [id number] Willis Alfred MD Multivitamin,Tx-Iron- Minerals 1 TABLET tablet (4 sources) Start: 014 End: 025 take 1 tablet by mouth once daily Multivitamin,Tx-Iron- Minerals 1 TABLET tablet Discontinued 1 {tbl} PO DAILY December 10, 2013 12:00am October 28, 2024 10:35am nitrofurantoin, macrocrystals 25 mg / nitrofurantoin, monohydrate 75 mg oral capsule (16 sources) Nitrofuran Antibacterial Start: 023 End: take 1 capsule by mouth twice daily at mealtime Nitrofurantoin Monohyd/M-Cryst (Macrobid) 100 mg capsule Discontinued 100 mg PO TWICE A DAY 30 12December 14, 2022 12:00am December 16, 2022 11:07am must administer with a meal/food Comment on above: Take 100 mg by mouth twice daily. For seven days for UTI nitroglycerin 0.4 mg sublingual tablet (6 sources) Nitrate Vasodilator Start: NITROSTAT 0.4 MG SUBL 1 tablet under tongue every 5 min up to 3 X NITROGLYCERIN [id number] Willis Alfred MD nystatin 663828 unt/ml oral suspension (19 sources) Polyene Antifungal Start: 019 End: 019 take [id number] [IU] by mouth every six hours Nystatin 500,000 UNIT/5 ML Udc Discontinued [id number] U PO EVERY 6 HOURS 1 July 28, 2018 1:00am August 03, 2018 1:00am August 04, 2018 1:12am OMEGA-3 FATTY ACIDS CPDR (1 source) Start: 015 take 1 tablet by mouth once daily OMEGA 3 CPDR One tablet by mouth daily OMEGA-3 FATTY ACIDS CPDR [id number] Dyana Alvarez PA-C OMEGA-3 FATTY ACIDS CPDR (2 sources) Start: take 1 tablet by mouth once daily OMEGA 3 CPDR One tablet by mouth daily OMEGA-3 FATTY ACIDS CPDR [id number] Dyana Alvarez PA-C 24 hr oxybutynin chloride 5 mg extended release oral tablet (8 sources) Cholinergic Muscarinic Antagonist Start: End: take 1 tablet by mouth once daily oxybutynin XL (DITROPAN XL) 5 mg 24 hr tablet Take 1 tablet by mouth once daily. 5 10/17/2018 11/29/2021 Discontinued Comment on above: Take 1 tablet by dewayne th once daily. pantoprazole 40 mg delayed release oral tablet (19 sources) Proton Pump Inhibitor Start: End: take [...] by mouth twice daily RANEXA 500 MG [id number] One tablet by mouth twice daily RANOLAZINE [id number] Rubina Barger RN Start: 12-27-2012 take 1 tablet by dewayne th twice daily RANEXA 500 MG [id number] One tablet by mouth twice daily RANOLAZINE [id number] Rubina Barger RN Start: 12-27-2012 End: 12-28-2012 take 1 tablet by mouth twice daily RANEXA 500 MG [id number] One tablet by mouth twice daily RANOLAZINE [id number] Rubina Barger RN rivaroxaban 20 mg oral [...] TABS One tablet by mouth daily RIVAROXABAN [id number] Rubina Barger RN sertraline 50 mg oral [...] once daily. Take 1 tablet by dewayne once daily. tiZANidine 4 mg oral tablet (15 sources) Central alpha-2 Adrenergic Agonist Start: 08-28-2024 End: 12-31-2024 tiZANidine (ZANAFLEX) 4 mg tablet Take 4 mg by mouth. 08/28/2024 12/31/2024 Discontinued valACYclovir 1000 mg oral tablet (19 sources) Herpesvirus Nucleoside Analog DNA Polymerase Inhibitor, [...] 12, 2021 12:00am April 19, 2021 12:01am vitamin b12 1 mg oral tablet (20 sources) Vitamin B12 End: 12-31-2024 take 1 tablet by mouth once daily cyanocobalamin (VITAMIN B-12) 1,000 mcg tab Take 1,000 mcg by mouth once daily. 12/31/2024 Discontinued Comment on above: Take 1,000 mcg by mouth once daily. 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 Patient should start on December 31, 2024. 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 Patient should start on December 31, 2024. 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 Patient should start on December 31, 2024. 4 mL 12/31/2024 01/28/2025 Active Start: 12-04-2024 End: 12-24-2024 inject 0.25 mg by subcutaneous injection every week WEGOVY 0.25 mg/0.5 mL pen injector Inject 0.25 mg subcutaneously one time a week. 12/04/2024 12/24/2024 Discontinued Problems Active Problems Problem Classification Problem Date Documented Da te Episodic/Chronic Acquired foot deformities (2 sources) Talipes planus; Translations: [Flat foot [pes planus] (acquired), right foot] Episodic Adjustment disorders (4 sources) Adjustment disorder with anxious mood; Translations: [Adjustment disorder with anxiety] Chronic Anxiety disorders (5 sources) Mixed anxiety and depressive disorder; Translations: [Other specified anxiety disorders] Onset: 5 01-03-2023 Chronic Attention-deficit, conduct, and disruptive behavior disorders (2 sources) Attention deficit hyperactivity disorder, combined type; Translations: [Attention-deficit hyperactivity disorder, combined type] 10-25-2023 Chronic Cardiac dysrhythmias (20 sources) Atrial flutter; [...] Chronic Comment on above: PTCA/stent to LAD Diabetes mellitus without complication (6 sources) Hyperglycemia; Translations: [Hyperglycemia, unspecified] Onset: 5 09-07-2023 Episodic Diseases of white blood cells (1 source) Leukocytosis; Translations: [Elevated white blood cell count, unspecified] Chronic Disorders of lipid metabolism (20 sources) Hyperlipidemia; Translations: [Hyperlipidemia, unspecified] Onset: 6 09-19-2013 Chronic Disorders usually diagnosed in infancy, childhood, or adolescence (5 sources) Attention deficit hyperactivity disorder, predominantly inattentive type; Translations: [Other specified behavioral and emotional disorders with onset usually occurring in childhood and adolescence] Onset: 5 09-23-2024 Chronic Esophageal disorders (20 sources) Gastroesophageal reflux disease; Translations: [Gastro-esophageal reflux disease without esophagitis] Onset: 1 06-18-2011 Chronic Gastrointestinal hemorrhage (10 sources) Acute lower gastrointestinal hemorrhage; Translations: [Gastrointestinal hemorrhage, unspecified] Onset: 5 10-28-2024 Episodic Hyperplasia of prostate (20 sources) Benign prostatic hyperplasia; Translations: [Benign prostatic hyperplasia without lower urinary tract symptoms] Onset: 4 02-29-2020 Chronic Immunizations and screening for infectious disease (1 source) Vaccination needed; Translations: [Encounter for immunization] 11-29-2023 Episodic Osteoarthritis (1 source) Primary osteoarthritis of [...] unspecified] 03-08-2024 Episodic Other lower respiratory disease (20 sources) Dyspnea on exertion; Translations: [Dyspnea, unspecified] 02-28-2020 Episodic Other lower respiratory disease (9 sources) Dyspnea, unspecified; Translations: [Other respiratory abnormalities] Onset: 5 Episodic Other lower respiratory disease (2 sources) Chest pain on breathing; Translations: [Chest pain on breathing] 12-13-2023 Episodic Other lower respiratory disease (1 source) Chronic cough; Translations: [Chronic cough] 12-13-2023 Episodic Other lower respiratory disease (3 [...] nutritional; endocrine; and metabolic disorders (20 sources) Obesity; Translations: [Obesity, unspecified] 02-29-2020 Chronic Other nutritional; endocrine; and metabolic disorders (3 sources) Morbid (severe) obesity due to excess calories; Translations: [Morbid obesity] 07-05-2023 Chronic Other nutritional; endocrine; and metabolic disorders (1 source) Body mass index (BMI) 38.0-38.9, adult; Translations: [Class 2 obesity with body mass index (BMI) of 38.0 to 38.9 in adult, unspecified obesity type, unspecified whether serious comorbidity present] Onset: 5 Chronic Other nutritional; endocrine; and metabolic disorders (1 source) Other obesity due to excess calories; Translations: [Other obesity due to excess calories] Onset: 5 Chronic Other nutritional; endocrine; and metabolic disorders (1 source) Body mass index (BMI) 39.0-39.9, adult; Translations: [Body mass index [BMI] 39.0-39.9, adult] Onset: 5 Chronic Other upper respiratory infections (5 sources) Bacterial sinusitis; Translations: [Chronic sinusitis, unspecified] Chronic Peripheral and visceral atherosclerosis (20 sources) Intermittent claudication; Translations: [Peripheral vascular disease, unspecified] Onset: 3 Resolved: 5 01-08-2015 Chronic Residual codes; unclassified (20 sources) Obstructive sleep apnea syndrome; Translations: [Obstructive sleep apnea (adult) (pediatric)] Onset: 5 01-08-2015 Chronic Residual codes; unclassified (20 sources) Sleep apnea; Translations: [Sleep apnea, unspecified] Onset: 4 12-25-2013 Chronic Residual codes; unclassified (19 sources) Postprocedural state finding; Translations: [Presence of other specified functional implants] Onset: 1 10-20-2021 Chronic Residual codes; unclassified (4 sources) Obstructive sleep apnea (adult) (pediatric); Translations: [Obstructive sleep apnea (adult)(pediatric)] Onset: 5 07-05-2023 Chronic Residual codes; unclassified (1 source) Sleep apnea, unspecified; Translations: [Sleep apnea, unspecified type] Onset: 4 Chronic Residual codes; unclassified (12 sources) Other specified health status; Translations: [Failure of outpatient treatment] 12-15-2022 Episodic Residual codes; unclassified (1 source) Pain; Translations: [Pain, unspecified] 09-10-2021 Episodic Substance-related disorders (1 source) Nicotine dependence, chewing tobacco, uncomplicated; Translations: [Nicotine dependence, chewing tobacco, uncomplicated] Onset: 8 Chronic Syncope (6 sources) Near syncope; Translations: [Syncope and collapse] 10-16-2023 Episodic Unclassified (2 sources) Long-term drug therapy; Translations: [Other long term care administrator (current) drug therapy] Onset: 3 12-17-2012 Unclassified (3 sources) Call KAYLEE for stress appointment time Unclassified (2 sources) G47.33 - Obstructive sleep apnea (adult) (pediatric),E66.09 - Other obesity due to excess calories,Z68.39 - Body mass index [BMI] 39.0-39.9, adult,I25.10 - Atherosclerotic heart disease of seminole coronary artery without angina pectoris Unclassified (1 source) Class 2 obesity with body mass index (BMI) of 38.0 to 38.9 in adult, unspecified obesity type, unspecified whether serious comorbidity present; Translations: [Class 2 obesity with body mass index (BMI) of 38.0 to 38.9 in adult, unspecified obesity type, unspecified whether serious comorbidity present] Onset: 5 Unclassified (1 source) Acute cough; Translations: [Acute cough] Onset: 5 Viral infection (1 source) COVID-19; Translations: [COVID-19] [...] Episodic Comment on above: PTCA/stent to LAD Essential hypertension (20 sources) Hypertensive disorder; Translations: [Essential (primary) hypertension] Onset: 03-20-2012 Resolved: 07-26-2023 07-10-2012 Chronic Fever of unknown origin (20 sources) Fever; Translations: [Fever, unspecified] Onset: 07-26-2023 Resolved: 07-26-2023 06-06-2019 Episodic Fluid and electrolyte disorders (20 sources) Hypokalemia; Translations: [Hypokalemia] Onset: 09-13-2017 09-13-2017 Episodic Headache; including migraine (20 sources) Pain in face; Translations: [Facial pain] Onset: 07-26-2023 Resolved: 07-26-2023 Episodic Inflammatory conditions of male genital organs [...] 07-10-2012 Episodic Other aftercare (1 source) Other [facility]p (current) drug therapy; Translations: [Other [facility]p (current) drug therapy] Onset: 12-17-2012 12-17-2012 Episodic Other aftercare (7 sources) Patient encounter status; Translations: [termination clerk (current) use of insulin] Onset: 12-17-2012 Resolved: 07-26-2023 07-26-2023 Episodic Other aftercare (20 sources) Long-term current use of insulin; Translations: [termination clerk (current) use of insulin] Onset: 12-17-2012 Resolved: [...] 05-06-2016 01-21-2019 Episodic Other lower respiratory disease (20 sources) [...] with neurogenic claudication] Onset: 06-22-2020 06-22-2020 Episodic Unclassified (20 sources) No response to treatment; Translations: [No response to treatment] Onset: 07-26-2023 Resolved: 07-26-2023 07-26-2023 Urinary tract infections (20 sources) Urinary tract infectious disease; Translations: [Urinary tract infection, site not specified] Onset: 12-16-2022 Episodic Viral infection (20 sources) Disease caused by 2019-nCoV; Translations: [COVID-19] Onset: 01-09-2024 Resolved: 03-08-2024 01-09-2024 Episodic Results Test Name Value Interpretation Reference Range Facility [facility] 12-31-2024 CNOV Office Visit (GENSWS ) LAZARO GARZON ([id number]) 1955 M Date Time Provider Department 12/31/24 8:30 AM YESICA BACON GENLUDY During your visit today, we recorded the following information about you: Temperature Pulse Blood pressure Weight 97.6 degrees 79/minute 141/83 147.4 kg Height 1.93 m Yesica Bacon APRN.CNP 12/31/2024 9:02 AM Signed HISTORY AND PHYSICAL Lazaro Garzon : 1955 REFERRING PHYSICIAN: Jagjit Cheema [address] [facility] [id number] CHIEF COMPLAINT: Patient presents with: New Patient: Colonoscopy consult - rectal bleeding HPI: Lazaro is a 69 year old male referred for endoscopy. Lazaro notes rectal bleeding. Lazaro notes abdominal pain. -bilateral low belly cramping -relieved after bowel movement Lazaro notes diarrhea. -when hematochezia is happening it is with diarrhea Lazaro denies constipation. Lazaro denies a change in bowel habits. Lazaro denies melena. Lazaro notes bright red blood per rectum. -occurs after eating popcorn and peanuts Lazaro notes hemorrhoids. Lazaro denies family history of colon issues. Lazaro notes a distant history of heartburn. -symptoms well controlled on nexium Lazaro denies dysphagia. Lazaro notes a distant history of a history of ulcers/ peptic ulcer disease. >10 years ago Lazaro follows with [facility] for PAF s/p cardioversion (2022) and CAD. Last OV 12/11. Last stress test 12/11 negative for ischemia, EF: 65%. He denies CP, SOB, dizziness, palpitations, syncope, edema, recent hospitalizations Lazaro has sleep apnea c/w CPAP. Lazaro has undergone prior endoscopy. Last EGD AND colonoscopy was 11/[address] Bennett at [place]. Sedation: MAC Impression: Medium-sized hiatal hernia, irregular GE junction, gastric fundic polyps, diverticulosis, and hemorrhoids. Pathology demonstrated: FINAL DIAGNOSIS A. Duodenal bulb, biopsy: - Gastric heterotopia. B. Stomach, antrum, biopsy: - No pathologic abnormalities. C. Gastric polyp, biopsy: - Fundic gland polyp. D. Gastroesophageal junction, biopsy: - Fragments of squamous and gastric type glandular mucosa showing no pathologic abnormalities. Current Outpatient Medications Medication Sig potassium chloride (K-TAB) 10 mEq tablet Take 2 tablets by mouth once daily. atomoxetine (STRATTERA) 100 mg capsule Take 1 capsule by mouth once daily. [START ON 01/01/2025] semaglutide, weight loss, (WEGOVY) 0.5 mg/0.5 mL pen injector Inject 0.5 mg subcutaneously one time a week for 28 days. Patient should start on January 01, 2025. finasteride (PROSCAR) 5 mg tablet Take 5 [...] mouth once daily. tamsulosin (FLOMAX) 0.4 mg Take 0.4 mg by mouth once daily. amLODIPine (NORVASC) 5 mg tablet Take 1 tablet by mouth once daily. testosterone (ANDROGEL PUMP) 20.25 mg/1.25 gram (1.62 %) transdermal gel APPLY 4 PUMPS TOPICALLY DAILY. oxyCODONE-acetaminophen 5-325 mg (PERCOCET) Take 1-2 tablets by mouth as needed. CPAP Requires replacement machine at same settings. Cholecalciferol, Vitamin D3, (VITAMIN D) 1,000 unit cap Take 1 capsule by mouth once daily. MULTIVITAMIN TAB Take 1 tablet by mouth once daily. peg 3350-Electrolytes (GOLYTELY) 236-22.74-6.74 -5.86 gram suspension Take 4,000 mL by mouth one time only for 1 dose. Refer to printed prep instructions from your provider. No current facility-administered medications for this visit. ALLERGIES: Sulfa (Sulfonamide Antibiotics) PAST MEDICAL HISTORY Diagnosis Date Abdominal pain, unspecified site Adrenal nodule (HCC) unchanged after >2 years Anxiety state, unspecified Asthma childhood Attention deficit disorder, unspecified type CAD (coronary artery disease) Chronic low back pain Class 2 obesity with body mass index (BMI) of 38.0 to 38.9 in adult, unspecified obesity type, unspecified whether serious comorbidity present 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 Diaphragmatic hernia without mention of obstruction or gangrene Diaphragmatic hernia without mention of obstruction or gangrene Diverticulosis of colon (without mention of hemorrhage) Esophageal reflux Essential hypertension, benign 03/20/2012 Fibromyalgia Hemorrhoids Hyperglycemia Hypogonadism male treated per urology Impotence of organic origin Lung nodule repeat ct in 01/02 Palpitations Personal history of colonic polyps 06/19/2004 polyps Pulmonary embolism (HCC) completed treatment per (more content not included)... Normal [facility] CBC W Auto Differential pane l (Bld)on 12-24-2024 Basophils (Bld) [#/Vol] [facility] Basophils/100 WBC (Bld) 0.3 % [facility] Differential cell count method Nom (Bld) Auto [facility] Eosinophils (Bld) [#/Vol] 0.03 10*3/uL [facility] Eosinophils/100 WBC (Bld) 0.5 % [facility] Erythrocyte distribution width (RBC) [Ratio] 12.9 % 11.5 - 15.0 % [facility] Hematocrit (Bld) [Volume fraction] 45.9 % 39.0 - 51.0 % [facility] Hemoglobin (Bld) [Mass/Vol] 15.6 g/dL 13.0 - 17.0 g/dL [facility] Immature granulocytes (Bld) [#/Vol] [facility] Immature granulocytes/100 WBC (Bld) 0.2 % [facility] Interpretation and review of laboratory results Abnormal [facility] Lymphocytes (Bld) [#/Vol] 0.95 10*3/uL Low [facility] Lymphocytes/100 WBC (Bld) 16.1 % [facility] MCH (RBC) [Entitic mass] 29.4 pg 26.0 - 34.0 pg [facility] MCHC (RBC) [Mass/Vol] 34 g/dL 30.5 - 36.0 g/dL [facility] MCV (RBC) [Entitic vol] 86.6 fL 80.0 - 100.0 fL [facility] Monocytes (Bld) [#/Vol] 0.4 10*3/uL [facility] Monocytes/100 WBC (Bld) 6.8 % [facility] Neutrophils (Bld) [#/Vol] 4.49 10*3/uL [facility] Neutrophils/100 WBC (Bld) 76.1 % [facility] Nucleated RBC (Bld) [#/Vol] [facility] Nucleated RBC/100 WBC (Bld) [Ratio] 0 % /100 WBC [facility] Platelet mean volume (Bld) [Entitic vol] 12.1 fL 9.0 - 12.7 fL [facility] Platelets (Bld) [#/Vol] 177 10*3/uL [facility] RBC (Bld) [#/Vol] 5.3 10*6/uL 4.20 - 6.00 m/uL [facility] WBC (Bld) [#/Vol] 5.9 10*3/uL [facility] Basophils (Bld) [#/Vol] 10*3/uL Normal <0.11 [facility] Comment on above: Order Comment: Speci men Type: BLOOD SPECIMENOrdering Facility: [facility] Address: [address] [place] [address] Performed By: #### 5 7021-8 ####[facility] LABCLIA [id number] [facility] [address], [place] [address] [place] Basophils/100 WBC (Bld) 0.3 % Normal [facility] Comment on above: Order Comment: Speci men Type: BLOOD SPECIMENOrdering Facility: [facility] Address: [address] [place] [address] Performed By: #### 5 7021-8 ####[facility] LABCLIA [id number] [facility] [address], [place] [address] [place] Differential cell count method Nom (Bld) Auto Normal [facility] Comment on above: Order Comment: Speci men Type: BLOOD SPECIMENOrdering Facility: [facility] Address: [address] [place] [address] Performed By: #### 5 7021-8 ####[facility] LABCLIA [id number] [place] [address] [place] Eosinophils (Bld) [#/Vol] 0.03 10*3/uL Normal <0.46 [facility] Comment on above: Order Comment: Speci men Type: BLOOD SPECIMENOrdering Facility: [facility] Address: [address] [place] [address] Performed By: #### 5 7021-8 ####[facility] LABCLIA [id number] [facility] [place] [id number] [place] Eosinophils/100 WBC (Bld) 0.5 % Normal [facility] Comment on above: Order Comment: Speci men Type: BLOOD SPECIMENOrdering Facility: [facility] Address: [address] [place] [address] Performed By: #### 5 7021-8 ####[facility] LABIA [id number] [place] [address] [place] Erythrocyte distribution width (RBC) [Ratio] 12.9 % Normal 11.5-15.0 [facility] Comment on above: Order Comment: Speci men Type: BLOOD SPECIMENOrdering Facility: [facility] Address: [address] [place] [address] Performed By: #### 5 7021-8 ####[facility] LABIA [id number] [place] [address] [place] Hematocrit (Bld) [Volume fraction] 45.9 % Normal 39.0-51.0 [facility] Comment on above: Order Comment: Speci men Type: BLOOD SPECIMENOrdering Facility: [facility] Address: [address] [place] [address] Performed By: #### 5 7021-8 ####[facility] LABIA [id number] [place] [address] [place] Hemoglobin (Bld) [Mass/Vol] 15.6 g/dL Normal 13.0-17.0 [facility] Comment on above: Order Comment: Speci men Type: BLOOD SPECIMENOrdering Facility: [facility] Address: [address] [place] [address] Performed By: #### 5 7021-8 ####[facility] LABCLIA [id number] [place] [address] [place] Immature granulocytes (Bld) [#/Vol] 10*3/uL Normal <0.10 [facility] Comment on above: Order Comment: Speci men Type: BLOOD SPECIMENOrdering Facility: [facility] Address: [address] [place] [address] Performed By: #### 5 7021-8 ####[facility] LABCLIA [id number] [place] [address] [place] Immature granulocytes/100 WBC (Bld) 0.2 % Normal [facility] Comment on above: Order Comment: Speci men Type: BLOOD SPECIMENOrdering Facility: [facility] Address: [address] [place] [address] Performed By: #### 5 7021-8 ####[facility] LABCLIA [id number] [place] [address] [place] Lymphocytes (Bld) [#/Vol] 0.95 10*3/uL Low 1.00-4.00 [facility] Comment on above: Order Comment: Speci men Type: BLOOD SPECIMENOrdering Facility: [facility] Address: [address] [place] [address] Performed By: #### 5 7021-8 ####[facility] LABIA [id number] [place] [address] [place] Lymphocytes/100 WBC (Bld) 16.1 % Normal [facility] Comment on above: Order Comment: Speci men Type: BLOOD SPECIMENOrdering Facility: [facility] Address: [address] [place] [address] Performed By: #### 5 7021-8 ####[facility] LABCLIA [id number] [place] [address] [place] MCH (RBC) [Entitic mass] 29.4 pg Normal 26.0-34.0 [facility] Comment on above: Order Comment: Speci men Type: BLOOD SPECIMENOrdering Facility: [facility] Address: [address] [place] [address] Performed By: #### 5 7021-8 ####[facility] LABCLIA [id number] [place] [id number] [place] MCHC (RBC) [Mass/Vol] 34.0 g/dL Normal 30.5-36.0 [facility] Comment on above: Order Comment: Speci men Type: BLOOD SPECIMENOrdering Facility: [facility] Address: [address] [place] [address] Performed By: #### 5 7021-8 ####[facility] LABCLIA [id number] [address] [address] [place] MCV (RBC) [Entitic vol] 86.6 fL Normal 80.0-100.0 [facility] Comment on above: Order Comment: Speci men Type: BLOOD SPECIMENOrdering Facility: [facility] Address: [address] [place] [address] Performed By: #### 5 7021-8 ####[facility] LABCLIA [id number] [place] [address] [place] Monocytes (Bld) [#/Vol] 0.40 10*3/uL Normal <0.87 [facility] Comment on above: Order Comment: Speci men Type: BLOOD SPECIMENOrdering Facility: [facility] Address: [address] [place] [address] Performed By: #### 5 7021-8 ####[facility] LABCLIA [id number] [place] [address] [place] Monocytes/100 WBC (Bld) 6.8 % Normal [facility] Comment on above: Order Comment: Speci men Type: BLOOD SPECIMENOrdering Facility: [facility] Address: [address] [place] [address] Performed By: #### 5 7021-8 ####[facility] LABCLIA [id number] [address] [address] [place] Neutrophils (Bld) [#/Vol] 4.49 10*3/uL Normal 1.45-7.50 [facility] Comment on above: Order Comment: Speci men Type: BLOOD SPECIMENOrdering Facility: [facility] Address: [address] [place] [address] Performed By: #### 5 7021-8 ####[facility] LABCLIA [id number] [place] [address] [place] Neutrophils/100 WBC (Bld) 76.1 % Normal [facility] Comment on above: Order Comment: Speci men Type: BLOOD SPECIMENOrdering Facility: [facility] Address: [address] [place] [address] Performed By: #### 5 7021-8 ####[facility] LABCLIA [id number] [place] [address] [place] Nucleated RBC (Bld) [#/Vol] 10*3/uL Normal <0.01 [facility] Comment on above: Order Comment: Speci men Type: BLOOD SPECIMENOrdering Facility: [facility] Address: [address] [place] [address] Performed By: #### 5 7021-8 ####[facility] LABCLIA [id number] [place] [address] [place] Nucleated RBC/100 WBC (Bld) [Ratio] 0.0 /100 WBC Normal [facility] Comment on above: Order Comment: Speci men Type: BLOOD SPECIMENOrdering Facility: [facility] Address: [address] [place] [address] Performed By: #### 5 7021-8 ####[facility] LABCLIA [id number] [place] [address] [place] Platelet mean volume (Bld) [Entitic vol] 12.1 fL Normal 9.0-12.7 [facility] Comment on above: Order Comment: Speci men Type: BLOOD SPECIMENOrdering Facility: [facility] Address: [address] [place] [address] Performed By: #### 5 7021-8 ####[facility] LABCLIA [id number] [place] [id number] [place] Platelets (Bld) [#/Vol] 177 10*3/uL Normal 150-400 [facility] Comment on above: Order Comment: Speci men Type: BLOOD SPECIMENOrdering Facility: [facility] Address: [address] [place] [address] Performed By: #### 5 7021-8 ####[facility] LABIA [id number] [place] [address] [place] RBC (Bld) [#/Vol] 5.30 10*6/uL Normal 4.20-6.00 [facility] Comment on above: Order Comment: Speci men Type: BLOOD SPECIMENOrdering Facility: [facility] Address: [address] [place] [address] Performed By: #### 5 7021-8 ####[facility] LABIA [id number] [place] [address] [place] WBC (Bld) [#/Vol] 5.90 10*3/uL Normal 3.70-11.00 [facility] Comment on above: Order Comment: Speci men Type: BLOOD SPECIMENOrdering Facility: [facility] Address: [address] [place] [address] Performed By: #### 5 7021-8 ####[facility] [id number] [place] [id number] [place] CNOVon 12-24-2024 CNOV Office Visit (FAMPWS ) LAZARO GARZON ([id number]) 1955 M Date Time Provider Department 12/24/24 2:00 PM JAGJIT CHEEMAWS During your visit today, we recorded the following information about you: Pulse Blood pressure Weight 86/minute 140/72 147.4 kg Jagjit Cheema MD 12/24/2024 2:29 PM Signed - Continue taking Strattera (atomoxetine) 100 mg once daily as you have been doing. - Start the higher?strength semaglutide (Wegovy) injection at 0.5 mg: you have a 28-day supply to begin after the of this month. - Watch for any stomach upset, nausea, vomiting or diarrhea while on semaglutide; if you develop these side effects, let us know. - Weigh yourself and send an update via Wapi or call toward the end of the month with your weight change and how you?re feeling on the medication. - Schedule a repeat colonoscopy with the general surgery team (Dr. Bales or his partner Dr. Bennett at [place]) as soon as possible, since your last prep in November 2022 was poor and you?ve had rectal bleeding. - Arrange for one more complete blood count to check for any changes from your bleeding episodes; contact the office to order this lab. - Plan to return to the clinic in about 8 weeks to review your progress on semaglutide, your Strattera therapy, and any further care steps. Jagjit Cheema MD 12/24/2024 5:38 PM Signed Lazaro Garzon is a 69-year-old male with a history of ADHD, DEENA, and heart disease, presenting for follow-up on medication changes and evaluation of rectal bleeding. HPI Rectal Bleeding: - Multiple episodes of rectal bleeding, with two significant episodes prompting ED visits. - Bleeding often occurs after consuming peanuts or popcorn, but also noted during episodes of anxiety. - No straining during bowel movements; urgency noted prior to bleeding. - Associated with severe abdominal cramping during episodes; no current abdominal pain. - Recent colonoscopy on 12/01/[address] Bennett at [facility] revealed diverticuli and poor bowel preparation; recommended repeat within two years by physician after the scope. - No epistaxis, hematuria, or excessive bruising. Chest Pain: - Recent episode of chest pain on 11/20/2024, attributed to self-administration of an unidentified medication. - Stress test performed by cardiology showed no significant abnormalities. - No current chest pain or dyspnea. ADHD: - Recently switched from Pristiq to Strattera 100 mg daily. - Reports good concentration and emotional stability on current dosage. - Completed a bottle of 100 mg Strattera when 40 mg was unavailable. Obstructive Sleep Apnea: - Using CPAP machine; believes it contributes to breathing difficulties. - Hopes to discontinue CPAP with weight loss. Weight Management: - Started Wegovy 0.25 mg weekly for weight loss two weeks ago; Lazaro has lost 9 lbs. - No adverse effects from medication. - Goal to lose 80 lbs to discontinue CPAP. - He would like us to take over writing it from cardiology. MEDICATIONS: Current Outpatient Medications Medication Sig [START ON 12/31/2024] WEGOVY 0.25 mg/0.5 mL pen injector Inject 0.5 mg subcutaneously one time a week for 28 days. Patient should start on December 31, 2024. atomoxetine (STRATTERA) 100 mg capsule Take 1 capsule by mouth once daily. [START ON 01/01/2025] semaglutide, weight loss, (WEGOVY) 0.5 mg/0.5 mL pen injector Inject 0.5 mg subcutaneously one time a week for 28 days. Patient should start on January 01, 2025. finasteride (PROSCAR) 5 mg tablet Take 5 [...] pain, unspecified site Adrenal nodule (HCC) unchanged (more content not included)... Normal [facility] LAZARO GARZON ([id number]) 1955 M Date Time Provider Department 12/24/24 JAGJIT CHEEMA [facility] During your visit today, we recorded the following information about you: Ni Hewitt RN 12/24/2024 3:13 PM [facility] regarding Wegovy script received today. Pharmacist states order is for 0.25 mg but script directions state to give 0.5 mg. Pharmacist asking if provider could send script for the 0.5 mg? Ni Hewitt RN Allergies As of Date: 12/24/2024 Noted Allergy Reaction SULFA (SULFONAMIDE ANTIBIOTICS) 03/10/2005 2 - Rash Date Reviewed: 12/24/2024 Reviewed by: Brandie Lange LPN - Fully Assessed Reason for Visit: Pharmacy Call [Other] Order(s):[START ON 01/01/2025] semaglutide, weight loss, (WEGOVY) 0.5 mg/0.5 mL pen injectorInject 0.5 mg subcutaneously one time a week for 28 days. Patient should start on January 01, 2025.Disp: 2 mLRfl: 0 Prescriptions as of 12/24/2024 - WEGOVY 0.25 mg/0.5 mL pen injector Inject 0.5 mg subcutaneously one time a week for 28 days. Patient should start on December 31, 2024. - atomoxetine (STRATTERA) 100 mg capsule Take 1 capsule by mouth once daily. - semaglutide, weight loss, (WEGOVY) 0.5 mg/0.5 mL pen injector Inject 0.5 mg subcutaneously one time a week for 28 days. Patient should start on January 01, 2025. - finasteride (PROSCAR) 5 mg tablet Take 5 mg by mouth once daily. - esomeprazole (NEXIUM) 40 mg capsule Take 1 capsule by mouth two times a day before meals. - losartan (COZAAR) 100 mg tablet Take [...] daily. - tamsulosin (FLOMAX) 0.4 mg - amLODIPine (NORVASC) 5 mg tablet Take [...] BY MOUTH. Problem List As Of Date 12/24/2024 Noted Resolved Hyperlipidemia [E78.5] 09/30/2005 Palpitations [R00.2] [...] 07/26/2023 Obesity, Class III, BMI >= 40 [E66.813] 07/16/2023 07/26/2023 Abnormal cardiovascular stress test [R94.39] 08/21/2012 07/26/2023 Diagnosed: 07/26/2023 Acute prostatitis [N41.0] 07/26/2023 07/26/2023 Diagnosed: 07/26/2023 Chest pain [R07.9] 07/10/2012 07/26/2023 Diagnosed: 07/26/2023 Confusional state [F44.89] 07/26/2023 07/26/2023 Diagnosed: 07/26/2023 Thrombocytopenia [D69.6] 07/26/2023 Diagnosed: 07/26/2023 Encounter for long-term (current) use of insuli*12/17/2012 07/26/2023 Diagnosed: 07/26/2023 Enlarged prostate [N40.0] 07/26/2023 Diagnosed: 07/26/2023 Fatigue [R53.83] 10/30/2013 07/26/2023 Diagnosed: 07/26/2023 Fever [R50.9] 07/26/2023 07/26/2023 Diagnosed: 07/26/2023 First degree atrioventricular block [I44.0] 07/26/2023 Diagnosed: 07/26/2023 Headache, unspecified [R51.9] 07/26/2023 07/26/2023 Diagnosed: 07/26/2023 No response to treatment [[id number]] 07/26/2023 07/26/2023 (more content not included)... Normal [facility] Cardiology Visit Reporton Cardiology Visit Report [facility] [address] [place], [place] [address] OFFICE VISIT Date of Service: 11/28/24 MR#: [id number] Acct: [id number] Name: LAZARO GARZON Rep #: [id number] : 1955 Provider: SARA beckett Age/Sex: 69/M Location: [facility] Status: Signed HPI HPI History of Present Illness Details: Patient is a 69-year-old white male that comes in with a history of paroxysmal atrial fibrillation and coronary artery disease. He also has a history of hypertension obstructive sleep apnea treated by CPAP he is overweight and has a history of hyperlipidemia. He was seen in the emergency department on 11/20/2024 with a negative workup. Initial troponin was 25 with delta troponin at 20. NT pro BNP was negative at 143. Hemoglobin is noted be 15.4. After ER visit, he underwent a stress test on 11/21/2024. It was negative for ischemia or infarction and showed LV function of 65%. He denies chest, arm, jaw, or neck discomfort. He denies palpitations. He states bilateral lower extremity edema. He denies claudication. He states shortness of breath with activity. He denies shortness of breath at rest, orthopnea, or PND. He denies chronic cough. He denies significant, sudden weight gain. He denies lightheadedness, dizziness, near-syncope, or syncope. He denies blood in urine, blood in stool, or epistaxis. He denies fever with chills. He denies myalgia. He denies fatigue. His exercise level has remained stable. 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: No Accompanied by: Self Is patient in pain?: No Allergies Sulfa (Sulfonamide Antibiotics) Allergy (Verified 11/28/24 10:14) Unknown Medications ???Medication ???Instructions ???Recorded ???Confirmed ???Type albuterol sulfate 90 mcg/actuation 1 - 2 puff inhalation Q6H PRN 11/28/24 History aerosol inhaler Asthma testosterone 4 pump transdermal DAILY low 11/2311/28/24 History testosterone tamsulosin 0.4 mg capsule 0.4 mg PO DAILY prostate 04/29/22 11/28/24 History aspirin 81 mg tablet,delayed 81 mg PO DAILY 07/05/23 11/28/24 H istory release amlodipine 5 mg tablet 10 mg (2 x 5 mg) PO DAILY htn #90 04/08/24 11/28/24 Rx tabs esomeprazole magnesium 40 mg 40 mg PO BID 10/28/24 11/28/24 His tory capsule,delayed release finasteride 5 mg tablet 5 mg PO DAILY 10/28/24 11/28/24 Hi story losartan 100 mg tablet 100 mg PO DAILY 10/28/24 11/28/24 History multivitamin (Daily Multi-Vitamin 1 tab PO DAILY 10/28/24 11/28/24 History tablet) oxycodone-acetaminophen 5 mg-325 1 tab PO DAILY PRN pain 10/28/24 0 11/28/24 History mg tablet potassium chloride 10 mEq 20 meq PO DAILY 10/28/24 11/28/24 History tablet,extended release atomoxetine 40 mg capsule 100 mg PO DAILY 11/28/24 11/28/24 History tirzepatide (weight loss) 2.5 2.5 mg (0.5 mL) subcut QWEEK #2 mL 11/28/24 11/28/24 Rx mg/0.5 mL subcutaneous pen injector (Zepbound) Have you fallen in the past year?: No PFSH Medical History History of cardioversion First degree [...] disease) Essential hypertension Atherosclerotic heart disease of seminole coronary artery without angina pectoris Confusion Unstable [...] heart catheterization (LHC) History of PTCA ( (more content not included)... Normal [facility] Cardiovascular stress test r eportOrdered By: Denise Haywood on 11-21-2024 Study report [facility] Services [address] [place] [address] MR#: [id number] Acct: [id number] Name: LAZARO GARZON Rep #: [id number] : 1955 69 From: Denise webber MD Primary Care: Dr. Jagjit Cheema MD Status : REG CLI Referring Dr: Karl Vo MD Sex: M C Stress Test Report Date: 11/21/2024 Procedure: Pharmacologic stress nuclear imaging study Indications: [chest pain, CAD] Consent: Per the patient Procedure: The patient underwent pharmacologic (Regadenoson) evaluation with a peak heart rate of 75 beats per minute (49%predicted maximal heart rate) and a peak blood pressure of 140/62 mmHg. The baseline ECG demonstrated normal sinus rhythm, first degree AV block. EKG during lexiscan infusion revealed no significant ischemic changes. EKG post infusion revealed no significant ischemic changes [There were no cardiac dysrhythmias pretest, during pharmacologic infusion, or recovery]. [There was no complaint of chest discomfort during pharmacologic infusion or recovery]. The examination was discontinued secondary to completion of protocol. Impression: 1. Lexiscan stress test test is negative for Lexiscan infusion induced EKG changes of ischemia. 2. Lexiscan stress test test is negative for Lexiscan infusion induced chest pain. 3. Results of the nuclear portion of the test is as below Myocardial perfusion imaging study: Technique: The patient was injected with 10.6 millicuries of technetium 99m Cardiolite and subsequently rest SPECT Cardiolite nuclear imaging was obtained in the horizontal long, vertical long, and short axis views. The patient underwent pharmacologic [Regadenoson 0.4mg] evaluation. Please see above for details. Thepatient was injected with 35.5 millicuries of technetium 99m Cardiolite and subsequently stress SPECT Cardiolite nuclear imaging was obtained in the horizontal long, vertical long, and short axis views. A gated Cardiolite study at peak stress was obtained. Interpretation: Rest and stress SPECT Cardiolite nuclear imaging status post realignment, normalization, and attenuation correction demonstrate no evidence of significantischemia or infarction. Gated images reveal no significant regional wall motionabnormalities. The reported LVEF is 65%. Impression: 1. There is no evidence of significant ischemia or infarction. 2. Estimated ejection fraction is 65%. This note was generated with [employer] software. It may contain incorrectwords, spelling, and punctuation that were not noted in checking the note beforesigning. 11/21/24 1421 Date _ Denise Haywood MD CC: Dr. Karl Vo MD; Dr. Jagjit Cheema MD ~ Date Dictated: 11/21/241413 Date Transcribed: 11/21/241413 [place]: NN Signed [facility] Work Phone: Stress Reporton 11-21-2024 Stress Report [facility] Cardiovascular Services [address] [place] [address] MR#: [id number] Acct: [id number] Name: LAZARO GARZON Rep #: [id number] : 1955 69 From: Denise Haywood MD Primary Care: Dr. Jagjit Cheema MD Status: REG CLI Referring Dr: Karl Vo MD Sex: M C Stress Test Report Date: 11/21/2024 Procedure: Pharmacologic stress nuclear imaging study Indications: [chest pain, CAD] Consent: Per the patient Procedure: The patient underwent pharmacologic (Regadenoson) evaluation with a peak heart rate of 75 beats per minute (49%predicted maximal heart rate) and a peak blood pressure of 140/62 mmHg. The baseline ECG demonstrated normal sinus rhythm, first degree AV block. EKG during lexiscan infusion revealed no significant ischemic changes. EKG post infusion revealed no significant ischemic changes [There were no cardiac dysrhythmias pretest, during pharmacologic infusion, or recovery]. [There was no complaint of chest discomfort during pharmacologic infusion or recovery]. The examination was discontinued secondary to completion of protocol. Impression: 1. Lexiscan stress test test is negative for Lexiscan infusion induced EKG changes of ischemia. 2. Lexiscan stress test test is negative for Lexiscan infusion induced chest pain. 3. Results of the nuclear portion of the test is as below Myocardial perfusion imaging study: Technique: The patient was injected with 10.6 millicuries of technetium 99m Cardiolite and subsequently rest SPECT Cardiolite nuclear imaging was obtained in the horizontal long, vertical long, and short axis views. The patient underwent pharmacologic [Regadenoson 0.4mg] evaluation. Please see above for details. The patient was injected with 35.5 millicuries of technetium 99m Cardiolite and subsequently stress SPECT Cardiolite nuclear imaging was obtained in the horizontal long, vertical long, and short axis views. A gated Cardiolite study at peak stress was obtained. Interpretation: Rest and stress SPECT Cardiolite nuclear imaging status post realignment, normalization, and attenuation correction demonstrate no evidence of significant ischemia or infarction. Gated images reveal no significant regional wall motion abnormalities. The reported LVEF is 65%. Impression: 1. There is no evidence of significant ischemia or infarction. 2. Estimated ejection fraction is 65%. This note was generated with [employer] software. It may contain incorrect words, spelling, and punctuation that were not noted in checking the note before signing. 11/21/24 1421 Date Denise Haywood MD CC: Dr. Karl Vo MD; Dr. Jagjit Cheema MD Date Dictated: 11/21/24 1414 Date Transcribed: 11/21/241413 [place]: NN Signed Normal [facility] 12 Lead EKGon 11-20-2024 12 Lead EKG [facility] Cardiovascular Services [address] [place] [address] 12 Lead EKG 11/20/24 1035 MR#: [id number] Acct: [id number] Name: LAZARO GARZON Rep #: [id number] : 1955 69 From: Denise Haywood MD Attending Dr: Status: DEP ER Ordering Dr: Jose Alberto Contreras MD Date: 11/20/24 Location: ED Sex: M C Admitted: Test Reason : SOB Blood Pressure : */* mmHG Vent. Rate : 80 BPM Atrial Rate : 80 BPM P-R Int : 354 ms QRS Dur : 90 ms QT Int : 374 ms P-R-T Axes : 73 -43 54 degrees QTcB Int : 431 ms Sinus rhythm with 1st degree A-V block Left axis deviation Minimal voltage criteria for LVH, may be normal variant ( R in aVL ) Abnormal ECG Confirmed by YOBANY CONTI, JEN ([id number]), editor farm journal KIRA HECK ([id number]) on 11/25/2024 7:10:49 AM Referred By: BB/UG Confirmed By: JEN HAYWOOD MD 11/25/24709 Date Denise Haywood MD CC: Dr. Jose Alberto Contreras MD; Dr. Jagjit Cheema MD Signed Normal [facility] Absolute lymphocyte countOrd ered By: Jose Alberto Contreras on 11-20-2024 Lymphocytes Auto (Unsp spec) [#/Vol] 0.75 10*3/uL Low 0.83-4.51 [facility] Absolute neutrophil countOrd ered By: Jose Alberto Contreras on 11-20-2024 Neutrophils (Bld) [#/Vol] 5.3 10*3/uL 2.0-7.7 [facility] Anion gap in Serum or Plasma Ordered By: Jose Alberto Contreras on 11-20-2024 Anion gap [Moles/Vol] 12 mmol/L 5-15 [facility] Automated lymphocyte count a s percentage of total leukocytesOrdered By: Jose Alberto Contreras on 11-20-2024 Lymphocytes/100 WBC Auto (Unsp spec) 11.7 % Low 19-41 [facility] BUN/creatinine ratioOrdered By: Jose Alberto Contreras on 11-20-2024 Urea nitrogen/Creatinine [Mass ratio] 18.9 mg/mg 10- [facility] Basic Metabolic Profile (BMP )on 11-20-2024 BUN/CRE 18.9 RATIO Normal - [facility] Comment on above: Performed By: #### L 100.0100, L500.2500 #### [facility] [address] [place], [address] Calcium [Mass/Vol] 9.2 mg/dL Normal 7.6-11.0 [facility] Comment on above: Performed By: #### L 100.0100, L500.2500 #### [facility] [address] [place], [address] Chloride [Moles/Vol] 106 mmol/L Normal 98-108 [facility] Comment on above: Performed By: #### L 100.0100, L500.2500 #### [facility] [address] [place], [address] CO2 [Moles/Vol] 21.6 mmol/L Normal 21.0-32.0 [facility] Comment on above: Performed By: #### L 100.0100, L500.2500 #### [facility] [address] [place], [address] Creatinine [Mass/Vol] 1.22 mg/dL High 0.70-1.20 [facility] Comment on above: Performed By: #### L 100.0100, L500.2500 #### [facility] [address] [place], [address] ECRCL 95.39 ml/min Normal 50-250 [facility] Comment on above: Performed By: #### L 100.0100, L500.2500 #### [facility] [address] [place], [address] GAP 12 Normal 5-15 [facility] Comment on above: Performed By: #### L 100.0100, L500.2500 #### [facility] [address] [place], [address] GFR/1.73 sq M.predicted among non-blacks MDRD (S/P/Bld) [Vol rate/Area] 65 mL/min/{1.73_m2} Normal >60 [facility] Comment on above: Result Comment: mL/m in/1.73m2 CKD-EPI Creatinine Equation (2020) Performed By: #### L 100.0100, L500.2500 #### [facility] [address] [place], [address] Glucose [Mass/Vol] 156 mg/dL High 70-99 [facility] Comment on above: Performed By: #### L 100.0100, L500.2500 #### [facility] [address] [place], [address] Potassium [Moles/Vol] 3.8 mmol/L Normal 3.3-5.1 [facility] Comment on above: Performed By: #### L 100.0100, L500.2500 #### [facility] [address] [place], [address] Sodium [Moles/Vol] 140 mmol/L Normal 133-145 [facility] Comment on above: Performed By: #### L 100.0100, L500.2500 #### [facility] [address] [place], [address] Urea nitrogen [Mass/Vol] 23 mg/dL High 4-19 [facility] Comment on above: Performed By: #### L 100.0100, L500.2500 #### [facility] [address] [place], [address] Basophil percentageOrdered B y: Jose Alberto Contreras on 11-20-2024 Basophils/100 WBC (Bld) 0.5 % 0-1 [facility] CBC W/Diff, Automatedon -0 Absolute Lymph 0.75 X10 3/uL Low 0.83-4.51 [facility] Comment on above: Performed By: #### L 100.0100, L500.2500 #### [facility] [address] [place], [address] Absolute Neut 5.3 X10 3/uL Normal 2.0-7.7 [facility] Comment on above: Performed By: #### L 100.0100, L500.2500 #### [facility] [address] [place], [address] Basophils/100 WBC (Bld) 0.5 % Normal 0-1 [facility] Comment on above: Performed By: #### L 100.0100, L500.2500 #### [facility] [address] [place], [address] Eosinophils/100 WBC (Bld) 0.2 % Normal 0-5 [facility] Comment on above: Performed By: #### L 100.0100, L500.2500 #### [facility] [address] [place], [address] Erythrocyte distribution width (RBC) [Ratio] 14.4 % Normal 11.6-14.6 [facility] Comment on above: Performed By: #### L 100.0100, L500.2500 #### [facility] [address] [place], [address] Hematocrit (Bld) [Volume fraction] 44.4 % Normal 40-54 [facility] Comment on above: Performed By: #### L 100.0100, L500.2500 #### [facility] [address] [place], [address] Hemoglobin (Bld) [Mass/Vol] 15.4 g/dL Normal 13.0-16.5 [facility] Comment on above: Performed By: #### L 100.0100, L500.2500 #### [facility] [address] [place], [address] IG% 0.500 Normal 0.0-0.9 [facility] Comment on above: Result Comment: IG% - Immature Granulocytes (promyelocytes, myelocytes and metamyelocytes) > 1% indicates that a LEFT SHIFT is Present. Performed By: #### L 100.0100, L500.2500 #### [facility] [address] [place], [address] Lymphocytes/100 WBC (Bld) 11.7 % Low 19-41 [facility] Comment on above: Performed By: #### L 100.0100, L500.2500 #### [facility] [address] [place], [address] MCH (RBC) [Entitic mass] 29.7 pg Normal 27.0-32.0 [facility] Comment on above: Performed By: #### L 100.0100, L500.2500 #### [facility] [address] [place], [address] MCHC (RBC) [Mass/Vol] 34.7 g/dL Normal 32-36 [facility] Comment on above: Performed By: #### L 100.0100, L500.2500 #### [facility] [address] [place], [address] MCV (RBC) [Entitic vol] 85.5 fL Normal 80-94 [facility] Comment on above: Performed By: #### L 100.0100, L500.2500 #### [facility] [address] [place], [address] Monocytes/100 WBC (Bld) 4.4 % Normal 0-10 [facility] Comment on above: Performed By: #### L 100.0100, L500.2500 #### [facility] [address] [place], [address] Neutrophils/100 WBC (Bld) 82.7 % High 47-70 [facility] Comment on above: Performed By: #### L 100.0100, L500.2500 #### [facility] [address] [place], [address] Nucleated RBC (Bld) [#/Vol] 0 10*3/uL Normal 0-5 [facility] Comment on above: Performed By: #### L 100.0100, L500.2500 #### [facility] [address] [place], [address] Platelet mean volume (Bld) [Entitic vol] 11.2 fL Normal 6.2-12.0 [facility] Comment on above: Performed By: #### L 100.0100, L500.2500 #### [facility] [address] [place], [address] Platelets (Bld) [#/Vol] 160 10*3/uL Normal 150-450 [facility] Comment on above: Performed By: #### L 100.0100, L500.2500 #### [facility] [address] [place], [address] RBC (Bld) [#/Vol] 5.19 10*6/uL Normal 4.6-6.2 [facility] Comment on above: Performed By: #### L 100.0100, L500.2500 #### [facility] [address] [place], [address] RDW SD 45.0 fl High 35.1-43.9 [facility] Comment on above: Performed By: #### L 100.0100, L500.2500 #### [facility] [address] [place], [address] WBC (Bld) [#/Vol] 6.4 10*3/uL Normal 4.4-11.0 [facility] Comment on above: Performed By: #### L 100.0100, L500.2500 #### [facility] [address] [place], [address] Carbon dioxide, total [Moles /volume] in Central venous bloodOrdered By: Jose Alberto Contreras on 11-20-2024 CO2 [Moles/Vol] 21.6 mmol/L 21.0-32.0 [facility] Chest PA and Lateralon 11-20 Chest PA and Lateral [facility] Imaging Services [address] [place] [address] Chest PA and Lateral MR#: [id number] Acct: [id number] Name: LAZARO GARZON Rep #: [id number] : 1955 M 69 From: Noe Noel MD PCP: Dr. Jagjit Cheema MD Status: REG ER Study: Chest PA and Lateral Date of Exam: 11/20/24 Exam# [id number] Ordering Dr: Jose Alberto Contreras MD PROCEDURE: CHEST PA AND LATERAL 11/20/2024 REASON FOR EXAM: SOB W/ EXERTION TECHNIQUE: Frontal and lateral views of the chest. COMPARISON: Two-view chest, 12/15/2022 FINDINGS: The lungs are clear. The heart borders and pulmonary vascular pattern are normal. There is calcific vascular disease of the thoracic aorta. There is an intrathecal stimulator with the tip at the midthoracic level. The upper abdominal bowel gas pattern is normal. RAD/Chest PA and Lateral IMPRESSION: No evidence of acute cardiopulmonary pathology. Reading Location: [facility] CC: Dr. Jose Alberto Contreras MD; Dr. Jagjit Cheema MD [place]: Signed Normal [facility] Chloride assayOrdered By: Nola Contreras on 11-20-2024 Chloride [Moles/Vol] 106 mmol/L 98-108 [facility] D-Dimer Quantitative (DVT/PE )on 11-20-2024 D-DIMER QUANT 0.30 FEU/ug/m Normal 0.27-0.49 [facility] Comment on above: Result Comment: NORM AL D-Dimer level (<0.50) indicates no DVT or PE. Performed By: #### L 300.8000 #### [facility] [address] [place], [address] Emergency Department Summary on 11-20-2024 Emergency Department Summary [facility] Medical Records Department [address] [place] [address] Emergency Department Summary 11/20/24 MR#: [id number] Acct: [id number] Name: LAZARO GARZON Rep #: [id number] : 1955 69 From: Jose Alberto Contreras MD PCP: Dr. Jagjit Cheema MD Status:REG ER Location: ED HPI History of Present Illness Chief Complaint: Shortness of Breath Informant: patient Narrative Narrative: 69-year-old male presents with worsening dyspnea on exertion, gradual in onset over the last couple weeks. Denies any chest pain with any of this. However he is getting to the point where he does not have to do very much exertion before he needs to stop and rest, he sometimes feels near syncopal with this but he has not lost consciousness, last night was 1 of those episodes and so we decided to check his blood pressure and it was 70s/50s. He denies any leg edema or orthopnea. 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 He states at rest right now other than being a little tired, he is asymptomatic. States he was cardioverted out of atrial flutter years ago and has been off of anticoagulants, and also has a stent. He states as a result of the symptoms he saw his primary care doctor recently, he states they took a chest x-ray and was told it was normal/negative for pneumonia, so they put him on an antibiotic anyway, so he is currently on doxycycline and day 3 of prednisone. He thinks that it is helping the minor dry cough that he has been having a little. [facility] Medical History History of cardioversion [...] disease) Essential hypertension Atherosclerotic heart disease of seminole coronary artery without angina pectoris Confusion Unstable [...] / Time Sulfa (Sulfonamide Allergy Unknown Verified 11/20/24 10:26 Antibiotics) Family History Mother CAD (coronary artery [...] History of repair of rotator cuff Social H (more content not included)... Normal [facility] Eosinophil percentageOrdered By: Jose Alberto Contreras on 11-20-2024 Eosinophils/100 WBC (Bld) 0.2 % 0-5 [facility] Erythrocyte distribution wid th ratioOrdered By: Jose Alberto Contreras on 11-20-2024 Erythrocyte distribution width (RBC) [Ratio] 14.4 % 11.6-14.6 [facility] Erythrocyte distribution wid th standard deviationOrdered By: Jose Alberto Contreras on 11-20-2024 Erythrocyte distribution width (RBC) [Ratio] 45.0 fl High 35.1-43.9 [facility] Glomerular filtration rate ( GFR) estimation/1.73 sq m using serum, plasma, or whole bOrdered By: Jose Alberto Contreras on 11-20-2024 GFR/1.73 sq M.predicted among non-blacks MDRD (S/P/Bld) [Vol rate/Area] 65 mL/min/{1.73_m2} >60 [facility] Comment on above: mL/min/1.73m2 CKD-EP I Creatinine Equation (2020) Hematocrit Auto (Bld) [Volum e fraction]Ordered By: Jose Alberto Contreras on 11-20-2024 Hematocrit (Bld) [Volume fraction] 44.4 % 40-54 [facility] Hemoglobin measurementOrdere d By: Jose Alberto Contreras on 11-20-2024 Hemoglobin (Bld) [Mass/Vol] 15.4 g/dL 13.0-16.5 [facility] Immature granulocytes/100 WB C Auto (Bld)Ordered By: Jose Alberto Contreras on 11-20-2024 Immature granulocytes/100 WBC (Bld) 0.500 % 0.0-0.9 [facility] Comment on above: IG% - Immature Granu locytes (promyelocytes, myelocytes and metamyelocytes) > 1% indicates that a LEFT SHIFT is Present. L499.0042on 11-20-2024 Trop T High Sen 20 ng/L Normal <=22 [facility] Comment on above: Performed By: #### L 100.0100, L500.2500 #### [facility] [address] [place], [address] L499.0043on 11-20-2024 Trop T High Sen Normal <=22 [facility] Comment on above: Result Comment: Canc elled via OM: Order cancelled - Patient discharged Performed By: #### L 499.0043 #### [facility] [address] [place], [address] L501.4021on 11-20-2024 Trop T High Sen 25 ng/L High <=22 [facility] Comment on above: Performed By: #### L 100.0100, L500.2500 #### [facility] [address] [place], [address] L503.7505on 11-20-2024 Natriuretic peptide B (Bld) [Mass/Vol] 143 pg/mL Normal <=900 [facility] Comment on above: Result Comment: Hear t Failure Unlikely: < 300 pg/mL Heart Failure Likely < 50 Years: > 450 pg/mL 50-75 Years: > 900 pg/mL >75 Years: > 1800 pg/mL Performed By: #### L 100.0100, L500.2500 #### [facility] [address] [place], [address] MCV (mean corpuscular volume ) determinationOrdered By: Jose Alberto Contreras on 11-20-2024 MCV (RBC) [Entitic vol] 85.5 fL 80-94 [facility] Mean corpuscular hemoglobin (MCH) determinationOrdered By: Jose Alberto Contreras on 11-20-2024 MCH (RBC) [Entitic mass] 29.7 pg 27.0-32.0 [facility] Mean corpuscular hemoglobin concentration (MCHC) determinationOrdered By: Jose Alberto Contreras on 11-20-2024 MCHC (RBC) [Mass/Vol] 34.7 g/dL 32-36 [facility] Mean platelet volume determi nationOrdered By: Jose Alberto Contreras on 11-20-2024 Platelet mean volume (Bld) [Entitic vol] 11.2 fL 6.2-12.0 [facility] Monocyte percentageOrdered B y: Jose Alberto Contreras on 11-20-2024 Monocytes/100 WBC (Bld) 4.4 % 0-10 [facility] Natriuretic peptide.B prohor madeleine N-Terminal [Mass/volume] in Serum or PlasmaOrdered By: Jose Alberto Contreras on 11-20-2024 Natriuretic peptide.B prohormone N-Terminal [Mass/Vol] 143 pg/mL <900 [facility] Comment on above: Heart Failure Unlike ly: < 300 pg/mLHeart Failure Likely< 50 Years: > 450 pg/mL50-75 Years: > 900 pg/mL>75 Years: > 1800 pg/mL Neutrophil percentageOrdered By: Jose Alberto Contreras on 11-20-2024 Neutrophils/100 WBC (Bld) 82.7 % High 47-70 [facility] Nucleated red blood cell per centageOrdered By: Jose Alberto Contreras on 11-20-2024 Nucleated RBC/100 WBC (Bld) [Ratio] 0 % 0-5 [facility] Platelet countOrdered By: Nola Contreras on 11-20-2024 Platelets (Bld) [#/Vol] 160 10*3/uL 150-450 [facility] Potassium measurement (mass/ volume)Ordered By: Jose Alberto Contreras on 11-20-2024 Potassium (Unsp spec) [Mass/Vol] 3.8 mmol/L 3.3-5.1 [facility] RBC Auto (Bld) [#/Vol]Ordere d By: Jose Alberto Contreras on 11-20-2024 RBC (Bld) [#/Vol] 5.19 10*6/uL 4.6-6.2 [facility] Serum creatinine measurement (mass/volume)Ordered By: Jose Alberto Contreras on 11-20-2024 Creatinine [Mass/Vol] 1.22 mg/dL High 0.70-1.20 [facility] Serum glucose measurement (m ass/volume)Ordered By: Jose Alberto Contreras on 11-20-2024 Glucose [Mass/Vol] 156 mg/dL High 70-99 [facility] Serum or plasma calcium peterson urement (mass/volume)Ordered By: Jose Alberto Contreras on 11-20-2024 Calcium [Mass/Vol] 9.2 mg/dL 7.6-11.0 [facility] Serum or plasma urea nitroge n measurement (mass/volume)Ordered By: Jose Alberto Contreras on 11-20-2024 Urea nitrogen [Mass/Vol] 23 mg/dL High 4-19 [facility] Sodium levelOrdered By: Miki Contreras on 11-20-2024 Sodium [Moles/Vol] 140 mmol/L 133-145 [facility] Troponin T.cardiac [Mass/vol ume] in Serum or Plasma by High sensitivity methodOrdered By: Jose Alberto Contreras on 11-20-2024 Troponin T.cardiac High sensitivity method [Mass/Vol] 20 ng/L <22 [facility] Troponin T.cardiac High sensitivity method [Mass/Vol] 25 ng/L High <22 [facility] White blood cell (WBC) count Ordered By: Jose Alberto Contreras on 11-20-2024 WBC (Bld) [#/Vol] 6.4 10*3/uL 4.4-11.0 [facility] CNOVon 11-18-2024 CNOV Office Visit (PERICO ) LAZARO GARZON ([id number]) 1955 M Date Time Provider Department 11/18/24 11:20 [facility] today, we recorded the following information about you: Temperature Pulse Respiration Blood pressure 99.2 degrees 72/minute 16/minute 158/80 Susan Kerr APRN.CNP 11/18/2024 11:56 AM Addendum - Get the chest xray. - Begin doxycycline: take one dose twice daily for 10 days. - Begin prednisone: take one tablet once a day for 5 days. - Continue using your albuterol inhaler and Claritin as you have been. Let us know if no improvement/worsening. Susan Kerr APRN.CNP 11/18/2024 12:38 PM Signed This is a 69 year old male [...] Date ADENOIDECTOMY PRIMARY Adenoidectomy COLONOSCOPY N/A 07/20/2016 [facility] 01/24/2019 adenomatous colon polyps, repeat in 3 years COLONOSCOPY FLX DX W/COLLJ SPEC WHEN PFRMD 2004 Colonoscopy COLONOSCOPY FLX DX W/COLLJ SPEC WHEN PFRMD 03/07/2011 wnl EGD N/A 07/20/2016 [facility] [place] 01/24/2019 gastritis and gastric polyps ESOPHAGOGASTRODUODENOSCOPY TRANSORAL DIAGNOSTIC 05/24/2011 EGD F TRIAL SPINAL CORD STIMULATOR HEMORRHOIDECTOMY XTRNL 2/> COLUMN/GROUP 04/30/2015 KNEE SURGERY HX Right 1988 LAPS SURG CHOLECYSTECTOMY W/CHOLANGIOGRAPHY 2004 [facility] - Dr. Bales OPEN REPAIR OF [...] TAB T (more content not included)... Normal [facility] XR CHEST 2V FRONTAL/LATon XR CHEST 2V [...] the spine. IMPRESSION: No acute radiographic abnormality. [facility]: OSMANI Transcribe Date/Time: Nov 18 2024 1:08P Dictated by : LETTY THOMAS MD This examination was interpreted and the report reviewed and electronically signed by: LETTY THOMAS MD on Nov 18 2024 1:09PM EST [id number] Normal [facility] XR Chest PA and Lateralon IMPRESSION: No acute radiographic abnormality. [facility]: OSMANI Transcribe Date/Time: Nov 18 2024 1:08P Dictated by : LETTY THOMAS MD This examination was interpreted and the report reviewed and electronically signed by: LETTY THOMAS MD on Nov 18 2024 1:09PM EST DIVISION OF RADIOLOGY * * *Final [...] in the spine. DIVISION OF RADIOLOGY Provider, Deneen Sukumar Rocha - 11/18/2024 * * *Final Report* * [...] spine. IMPRESSION IMPRESSION: No acute radiographic abnormality. [facility]: PSCB Transcribe Date/Time: Nov 18 2024 1:08P Dictated by : LETTY THOMAS MD This examination was interpreted and the report reviewed and electronically signed by: LETTY THOMAS MD on Nov 18 2024 1:09PM EST [facility] Radiology Study observation (narrative) [facility] XR Chest PA and LateralOrder ed By: [facility] Provider on 11-18-2024 [facility] Abdomen/Pelvis W IV Cont ONL Yon 10-28-2024 Abdomen/Pelvis W IV Cont ONLY [facility] Imaging Services [address] [place] [address] Abdomen/Pelvis W IV Cont ONLY MR#: [id number] Acct: [id number] Name: LAZARO GARZON Rep #: [id number] : 1955 M 69 From: Paul perdomo MD PCP: Dr. Jagjit Cheema MD Status: REG ER Study: Abdomen/Pelvis W IV Cont ONLY Date of Exam: Exam# [id number] Ordering Dr: Robby Mclaughlin DO PROCEDURE: ABDOMEN/PELVIS [...] lower chance of developing HCC. Reading Location: [id number] CC: Dr. Robby Mclaughlin DO; Dr. Jagjit Cheema MD [facility]: Signed Normal [facility] Absolute lymphocyte countOrd ered By: Robby Mclaughlin on 10-28-2024 Lymphocytes Auto (Unsp spec) [#/Vol] 0.92 10*3/uL 0.83-4.51 [facility] Absolute neutrophil countOrd ered By: Robby Mclaughlin on 10-28-2024 Neutrophils (Bld) [#/Vol] 2.8 10*3/uL 2.0-7.7 [facility] Anion gap in Serum or Plasma Ordered By: Robby Mclaughlin on 10-28-2024 Anion gap [Moles/Vol] 9 mmol/L 5- [facility] Automated lymphocyte count a s percentage of total leukocytesOrdered By: Robby Mclaughlin on 10-28-2024 Lymphocytes/100 WBC Auto (Unsp spec) 22.3 % [facility] BUN/creatinine ratioOrdered By: Robby Mclaughlin on 10-28-2024 Urea nitrogen/Creatinine [Mass ratio] 15.9 mg/mg 04-07 [facility] Basic Metabolic Profile (BMP )on 10-28-2024 BUN/CRE 15.9 RATIO Normal 04-07 [facility] Comment on above: Performed By: #### L 500.2500, L500.3400, L100.0100, L501.2450 #### [facility] [address] [place], [address] Calcium [Mass/Vol] 8.4 mg/dL Normal 7.6-11.0 [facility] Comment on above: Performed By: #### L 500.2500, L500.3400, L100.0100, L501.2450 #### [facility] [address] [place], [address] Chloride [Moles/Vol] 108 mmol/L Normal 98-108 [facility] Comment on above: Performed By: #### L 500.2500, L500.3400, L100.0100, L501.2450 #### [facility] [address] [place], [address] CO2 [Moles/Vol] 24.2 mmol/L Normal 21.0-32.0 [facility] Comment on above: Performed By: #### L 500.2500, L500.3400, L100.0100, L501.2450 #### [facility] [address] [place], [address] Creatinine [Mass/Vol] 0.93 mg/dL Normal 0.70-1.20 [facility] Comment on above: Performed By: #### L 500.2500, L500.3400, L100.0100, L501.2450 #### [facility] [address] [place], [address] ECRCL 125.79 ml/min Normal 50-250 [facility] Comment on above: Performed By: #### L 500.2500, L500.3400, L100.0100, L501.2450 #### [facility] [address] [place], [address] GAP 9 Normal 5-15 [facility] Comment on above: Performed By: #### L 500.2500, L500.3400, L100.0100, L501.2450 #### [facility] [address] [place], [address] GFR/1.73 sq M.predicted among non-blacks MDRD (S/P/Bld) [Vol rate/Area] 90 mL/min/{1.73_m2} Normal >60 [facility] Comment on above: Result Comment: mL/m in/1.73m2 CKD-EPI Creatinine Equation (2020) Performed By: #### L 500.2500, L500.3400, L100.0100, L501.2450 #### [facility] [address] [place], [address] Glucose [Mass/Vol] 119 mg/dL High 70-99 [facility] Comment on above: Performed By: #### L 500.2500, L500.3400, L100.0100, L501.2450 #### [facility] [address] [place], [address] Potassium [Moles/Vol] 3.7 mmol/L Normal 3.3-5.1 [facility] Comment on above: Performed By: #### L 500.2500, L500.3400, L100.0100, L501.2450 #### [facility] [address] [place], [address] Sodium [Moles/Vol] 141 mmol/L Normal 133-145 [facility] Comment on above: Performed By: #### L 500.2500, L500.3400, L100.0100, L501.2450 #### [facility] [address] [place], [address] Urea nitrogen [Mass/Vol] 15 mg/dL Normal 4-19 [facility] Comment on above: Performed By: #### L 500.2500, L500.3400, L100.0100, L501.2450 #### [facility] [address] [place], [place], [phone] Basophil percentageOrdered B y: Robby Mclaughlin on 10-28-2024 Basophils/100 WBC (Bld) 0.5 % 0-1 [facility] Bilirubin Test strip Ql (U)O rdered By: Robby Mclaughlin on 10-28-2024 Bilirubin Ql (U) Negative Negative [facility] Bilirubin directOrdered By: Robby Mclaughlin on 10-28-2024 Bilirubin.direct [Mass/Vol] 0.25 mg/dL 0.00-0.30 [facility] Bilirubin, totalOrdered By: Robby Mclaughlin on 10-28-2024 Bilirubin [Mass/Vol] 0.62 mg/dL 0.00-1.30 [facility] CBC W/Diff, Automatedon 10-17 Absolute Lymph 0.92 X10 3/uL Normal 0.83-4.51 [facility] Comment on above: Performed By: #### L 500.2500, L500.3400, L100.0100, L501.2450 #### [facility] [address] [place], [address] Absolute Neut 2.8 X10 3/uL Normal 2.0-7.7 [facility] Comment on above: Performed By: #### L 500.2500, L500.3400, L100.0100, L501.2450 #### [facility] [address] [place], [address] Basophils/100 WBC (Bld) 0.5 % Normal 0-1 [facility] Comment on above: Performed By: #### L 500.2500, L500.3400, L100.0100, L501.2450 #### [facility] [address] [place], [address] Eosinophils/100 WBC (Bld) 1.2 % Normal 0-5 [facility] Comment on above: Performed By: #### L 500.2500, L500.3400, L100.0100, L501.2450 #### [facility] [address] [facility] [place], [address] Erythrocyte distribution width (RBC) [Ratio] 14.2 % Normal 11.6-14.6 [facility] Comment on above: Performed By: #### L 500.2500, L500.3400, L100.0100, L501.2450 #### [facility] [address] [place], [address] Hematocrit (Bld) [Volume fraction] 40.7 % Normal 40-54 [facility] Comment on above: Performed By: #### L 500.2500, L500.3400, L100.0100, L501.2450 #### [facility] [address] [place], [address] Hemoglobin (Bld) [Mass/Vol] 14.1 g/dL Normal 13.0-16.5 [facility] Comment on above: Performed By: #### L 500.2500, L500.3400, L100.0100, L501.2450 #### [facility] [address] [place], [address] IG% 0.200 Normal 0.0-0.9 [facility] Comment on above: Result Comment: IG% - Immature Granulocytes (promyelocytes, myelocytes and metamyelocytes) > 1% indicates that a LEFT SHIFT is Present. Performed By: #### L 500.2500, L500.3400, L100.0100, L501.2450 #### [facility] [address] [place], [address] Lymphocytes/100 WBC (Bld) 22.3 % Normal 19-41 [facility] Comment on above: Performed By: #### L 500.2500, L500.3400, L100.0100, L501.2450 #### [facility] [address] [place], [address] MCH (RBC) [Entitic mass] 29.7 pg Normal 27.0-32.0 [facility] Comment on above: Performed By: #### L 500.2500, L500.3400, L100.0100, L501.2450 #### [facility] [address] [place], [address] MCHC (RBC) [Mass/Vol] 34.6 g/dL Normal 32-36 [facility] Comment on above: Performed By: #### L 500.2500, L500.3400, L100.0100, L501.2450 #### [facility] [address] [place], [address] MCV (RBC) [Entitic vol] 85.7 fL Normal 80-94 [facility] Comment on above: Performed By: #### L 500.2500, L500.3400, L100.0100, L501.2450 #### [facility] [address] [place], [address] Monocytes/100 WBC (Bld) 8.3 % Normal 0-10 [facility] Comment on above: Performed By: #### L 500.2500, L500.3400, L100.0100, L501.2450 #### [facility] [address] [place], [address] Neutrophils/100 WBC (Bld) 67.5 % Normal 47-70 [facility] Comment on above: Performed By: #### L 500.2500, L500.3400, L100.0100, L501.2450 #### [facility] [address] [place], [address] Nucleated RBC (Bld) [#/Vol] 0 10*3/uL Normal 0-5 [facility] Comment on above: Performed By: #### L 500.2500, L500.3400, L100.0100, L501.2450 #### [facility] [address] [place], [address] Platelet mean volume (Bld) [Entitic vol] 10.7 fL Normal 6.2-12.0 [facility] Comment on above: Performed By: #### L 500.2500, L500.3400, L100.0100, L501.2450 #### [facility] [address] [place], [address] Platelets (Bld) [#/Vol] 147 10*3/uL Low 150-450 [facility] Comment on above: Performed By: #### L 500.2500, L500.3400, L100.0100, L501.2450 #### [facility] [address] [place], [address] RBC (Bld) [#/Vol] 4.75 10*6/uL Normal 4.6-6.2 [facility] Comment on above: Performed By: #### L 500.2500, L500.3400, L100.0100, L501.2450 #### [facility] [address] [place], [address] RDW SD 43.7 fl Normal 35.1-43.9 [facility] Comment on above: Performed By: #### L 500.2500, L500.3400, L100.0100, L501.2450 #### [facility] [address] [place], [address] WBC (Bld) [#/Vol] 4.1 10*3/uL Low 4.4-11.0 [facility] Comment on above: Performed By: #### L 500.2500, L500.3400, L100.0100, L501.2450 #### [facility] [address] [place], [address] Carbon dioxide, total [Moles /volume] in Central venous bloodOrdered By: Robby Mclaughlin on 10-28-2024 CO2 [Moles/Vol] 24.2 mmol/L 21.0-32.0 [facility] Chloride assayOrdered By: Babak Mclaughlin on 10-28-2024 Chloride [Moles/Vol] 108 mmol/L 98-108 [facility] Emergency Department Summary on 10-28-2024 Emergency Department Summary [facility] Medical Records Department [address] [place] [address] Emergency Department Summary 10/28/24 MR#: [id number] Acct: [id number] Name: LAZARO GARZON Rep #: [id number] : 1955 69 From: Robby Mclaughlin DO [...] had a colonoscopy in the past at [place] facility. He states he has a history of diverticulosis. He is not currently on blood thinners does take baby aspirin. 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 Normal [facility] Eosinophil percentageOrdered By: Robby Mclaughlin on 10-28-2024 Eosinophils/100 WBC (Bld) 1.2 % 0-5 [facility] Erythrocyte distribution wid th ratioOrdered By: Robby Mclaughlin on 10-28-2024 Erythrocyte distribution width (RBC) [Ratio] 14.2 % 11.6-14.6 [facility] Erythrocyte distribution wid th standard deviationOrdered By: Robby Mclaughlin on 10-28-2024 Erythrocyte distribution width (RBC) [Ratio] 43.7 fl 35.1-43.9 [facility] Glomerular filtration rate ( GFR) estimation/1.73 sq m using serum, plasma, or whole bOrdered By: Robby Mclaughlin on 10-28-2024 GFR/1.73 sq M.predicted among non-blacks MDRD (S/P/Bld) [Vol rate/Area] 90 mL/min/{1.73_m2} >60 [facility] Comment on above: mL/min/1.73m2 CKD-EP I Creatinine Equation (2020) Hematocrit Auto (Bld) [Volum e fraction]Ordered By: Robby Mclaughlin on 10-28-2024 Hematocrit (Bld) [Volume fraction] 40.7 % 40-54 [facility] Hemoglobin measurementOrdere d By: Robby Mclaughlin on 10-28-2024 Hemoglobin (Bld) [Mass/Vol] 14.1 g/dL 13.0-16.5 [facility] Immature granulocytes/100 WB C Auto (Bld)Ordered By: Robby Mclaughlin on 10-28-2024 Immature granulocytes/100 WBC (Bld) 0.200 % 0.0-0.9 [facility] Comment on above: IG% - Immature Granu locytes (promyelocytes, myelocytes and metamyelocytes) > 1% indicates that a LEFT SHIFT is Present. Ketones Test strip Ql (U)Ord ered By: Robby Mclaughlin on 10-28-2024 Ketones Ql (U) Negative Negative [facility] - Chemistry and C hemistry - challengeOrdered By: Robby Mclaughlin on 10-28-2024 AST [Catalytic activity/Vol] 30 U/L <38 [facility] Lipaseon 10-28-2024 Lipase [Catalytic activity/Vol] 33 U/L Normal 13-75 [facility] Comment on above: Result Comment: Plea note: LIPASE revised reference range effective 22. New Lipase methodology. Expected to produce lower values than the previous assay method. NEW Reference Range: 13 - 75 U/L Performed By: #### L 100.0100, L500.2500 #### [facility] [place], [address] Lipase measurementOrdered By : Robby Mclaughlin on 10-28-2024 Lipase [Catalytic activity/Vol] 33 U/L 13-75 [facility] Comment on above: Please note:LIPASE r evised reference range effective 22. New Lipase methodology. Expected to produce lower values than the previous assay method. NEW Reference Range: 13 - 75 U/L Liver Profileon 10-28-2024 Albumin [Mass/Vol] 4.1 g/dL Normal 3.4-4.8 [facility] Comment on above: Performed By: #### L 500.2500, L500.3400, L100.0100, L501.2450 #### [facility] [address] [place], [address] ALK PHOS 67 U/L Normal 40-129 [facility] Comment on above: Performed By: #### L 500.2500, L500.3400, L100.0100, L501.2450 #### [facility] [address] [place], [address] ALT [Catalytic activity/Vol] 36 U/L Normal <=46 [facility] Comment on above: Performed By: #### L 500.2500, L500.3400, L100.0100, L501.2450 #### [facility] [address] [place], [address] AST [Catalytic activity/Vol] 30 U/L Normal <=37 [facility] Comment on above: Performed By: #### L 500.2500, L500.3400, L100.0100, L501.2450 #### [facility] [address] [place], [address] Bilirubin [Mass/Vol] 0.62 mg/dL Normal 0.00-1.30 [facility] Comment on above: Performed By: #### L 500.2500, L500.3400, L100.0100, L501.2450 #### [facility] [address] [place], [address] Bilirubin.direct [Mass/Vol] 0.25 mg/dL Normal 0.00-0.30 [facility] Comment on above: Performed By: #### L 500.2500, L500.3400, L100.0100, L501.2450 #### [facility] [address] [place], [address] Globulin (S) [Mass/Vol] 2.5 g/dL Normal 2.2-4.2 [facility] Comment on above: Performed By: #### L 500.2500, L500.3400, L100.0100, L501.2450 #### [facility] [address] [place], [address] T PROT 6.6 g/dL Normal 5.9-8.4 [facility] Comment on above: Performed By: #### L 500.2500, L500.3400, L100.0100, L501.2450 #### [facility] [address] [place], [address] MCV (mean corpuscular volume ) determinationOrdered By: Robby Mclaughlin on 10-28-2024 MCV (RBC) [Entitic vol] 85.7 fL 80-94 [facility] Mean corpuscular hemoglobin (MCH) determinationOrdered By: Robby Mclaughlin on 10-28-2024 MCH (RBC) [Entitic mass] 29.7 pg 27.0-32.0 [facility] Mean corpuscular hemoglobin concentration (MCHC) determinationOrdered By: Robby Mclaughlin on 10-28-2024 MCHC (RBC) [Mass/Vol] 34.6 g/dL 32-36 [facility] Mean platelet volume determi nationOrdered By: Robby Mclaughlin on 10-28-2024 Platelet mean volume (Bld) [Entitic vol] 10.7 fL 6.2-12.0 [facility] Microscopic analysis of urin e for red blood cells (RBC)Ordered By: Robby Mclaughlin on 10-28-2024 Microscopic analysis of urine for red blood cells (RBC) 0 SEEN /hpf 0-5 [facility] Monocyte percentageOrdered B y: Robby Mclaughlin on 10-28-2024 Monocytes/100 WBC (Bld) 8.3 % 0-10 [facility] Mucus LM Ql (Urine sed)Order ed By: Robby Mclaughlin on 10-28-2024 Mucus Ql (Urine sed) 0 SEEN /hpf [facility] Neutrophil percentageOrdered By: Robby Mclaughlin on 10-28-2024 Neutrophils/100 WBC (Bld) 67.5 % 47-70 [facility] Nitrite Test strip Ql (U)Ord ered By: Robby Mclaughlin on 10-28-2024 Nitrite Ql (U) Negative Negative [facility] Nucleated red blood cell per centageOrdered By: Robby Mclaughlin on 10-28-2024 Nucleated RBC/100 WBC (Bld) [Ratio] 0 % 0-5 [facility] Platelet countOrdered By: Babak Mclaughlin on 10-28-2024 Platelets (Bld) [#/Vol] 147 10*3/uL Low 150-450 [facility] Potassium measurement (mass/ volume)Ordered By: Robby Mclaughlin on 10-28-2024 Potassium (Unsp spec) [Mass/Vol] 3.7 mmol/L 3.3-5.1 [facility] Protein Test strip Ql (U)Ord ered By: Robby Mclaughlin on 10-28-2024 Protein Ql (U) 15 mg/dl High Negative [facility] RBC Auto (Bld) [#/Vol]Ordere d By: Robby Mclaughlin on 10-28-2024 RBC (Bld) [#/Vol] 4.75 10*6/uL 4.6-6.2 [facility] Serum creatinine measurement (mass/volume)Ordered By: Robby Mclaughlin on 10-28-2024 Creatinine [Mass/Vol] 0.93 mg/dL 0.70-1.20 [facility] Serum globulin measurementOr dered By: Robby Mclaughlin on 10-28-2024 Globulin (S) [Mass/Vol] 2.5 g/dL 2.2-4.2 [facility] Serum glucose measurement (m ass/volume)Ordered By: Robby Mclaughlin on 10-28-2024 Glucose [Mass/Vol] 119 mg/dL High 70-99 [facility] Serum or plasma alanine fuchs otransferase (ALT) measurementOrdered By: Robby Mclaughlin on 10-28-2024 ALT [Catalytic activity/Vol] 36 U/L <47 [facility] Serum or plasma albumin peterson urement (mass/volume)Ordered By: Robby Mclaughlin on 10-28-2024 Albumin [Mass/Vol] 4.1 g/dL 3.4-4.8 [facility] Serum or plasma alkaline miki sphatase measurementOrdered By: Robby Mclaughlin on 10-28-2024 ALP [Catalytic activity/Vol] 67 U/L 40-129 [facility] Serum or plasma calcium peterson urement (mass/volume)Ordered By: Robby Mclaughlin on 10-28-2024 Calcium [Mass/Vol] 8.4 mg/dL 7.6-11.0 [facility] Serum or plasma urea nitroge n measurement (mass/volume)Ordered By: Robby Mclaughlin on 10-28-2024 Urea nitrogen [Mass/Vol] 15 mg/dL 4-19 [facility] Sodium levelOrdered By: Gerald Mclaughlin on 10-28-2024 Sodium [Moles/Vol] 141 mmol/L 133-145 [facility] Squamous epithelial cells de tection in urine sediment by light microscopyOrdered By: Robby Mclaughlin on 10-28-2024 Epithelial cells.squamous LM Ql (Urine sed) 0-5 SEEN /hpf 0-5 [facility] Total proteinOrdered By: Ramsey Mclaughlin on 10-28-2024 Protein [Mass/Vol] 6.6 g/dL 5.9-8.4 [facility] Urinalysis, Completeon 10-28 EPI,SQUAMOUS 0-5 SEEN Normal 0-5 [facility] Comment on above: Order Comment: LUCILLE CTOR TO SPECIFY Performed By: #### L 400.0001 #### [facility] [address] [place], [place], [id number] BACTERIA 0 SEEN Normal None Seen [facility] Comment on above: Order Comment: LUCILLE CTOR TO SPECIFY Performed By: #### L 400.0001 #### [facility] [address] [place], [address] Mucus Ql (Urine sed) 0 SEEN Normal [facility] Comment on above: Order Comment: LUCILLE CTOR TO SPECIFY Performed By: #### L 400.0001 #### [facility] [address] [place], [address] RBC 0 SEEN Normal 0-5 [facility] Comment on above: Order Comment: LUCILLE CTOR TO SPECIFY Performed By: #### L 400.0001 #### [facility] [address] [place], [address] WBC 0 SEEN Normal 0-5 [facility] Comment on above: Order Comment: LUCILLE CTOR TO SPECIFY Performed By: #### L 400.0001 #### [facility] [address] [place], [place], [id number] Urine clarityOrdered By: Ramsey Mclaughlin on 10-28-2024 Clarity (U) Clear Clear [facility] Urine color determinationOrd ered By: Robby Mclaughlin on 10-28-2024 Color (U) Yellow Yellow [facility] Urine glucose detectionOrder ed By: Robby Mclaughlin on 10-28-2024 Glucose Ql (U) Normal mg/dl Normal [facility] Urine leukocyte esterase det ection by dipstickOrdered By: Robby Mclaughlin on 10-28-2024 Leukocyte esterase Test strip Ql (U) Negative Negative [facility] Urine pHOrdered By: Robby woodard on 10-28-2024 pH (U) 7.0 [pH] 5.0 - 8.0 [facility] Urine sediment bacteria coun t by microscopy (number/high power field)Ordered By: Robby Mclaughlin on 10-28-2024 Bacteria LM.HPF (Urine sed) [#/Area] 0 /[HPF] None Seen [facility] Urine specific gravity measu rementOrdered By: Robby Mclaughlin on 10-28-2024 Specific gravity (U) [Rel density] 1.010 1.002-1.03 0 [facility] Urine urobilinogen measureme ntOrdered By: Robby Mclaughlin on 10-28-2024 Urobilinogen Ql (U) Normal mg/dl Normal [facility] White blood cell (WBC) count Ordered By: Robby Mclaughlin on 10-28-2024 WBC (Bld) [#/Vol] 4.1 10*3/uL Low 4.4-11.0 [facility] White blood cell countOrdere d By: Robby Mclaughlin on 10-28-2024 White blood cell count 0 SEEN /hpf 0-5 [facility] 10[facility]21[facility]20[facility] LAZARO GARZON ([id number]) 1955 M Date Time Provider Department 10/21/24 9:00 AM JAGJIT CHEEMA [facility] During your visit today, we recorded the [...] was [facility] and past[facility], [facility] alteration [facility] Asked him to come back because he [...] Lymph 1.00 - 4.00 k/uL 0.91 (L) [place]% % 9.0 Abs [place] <0.87 k/uL 0.40 Eosin% % 1.4 Abs [...] Pulmonary embolis (more content not included)... Normal [facility] Platelets Auto (Bld) [#/Vol] on 10-18-2024 Platelets (Bld) [#/Vol] 136 10*3/uL Low 150-400 [facility] Comment on above: Order Comment: Speci men Type: BLOOD SPECIMENOrdering Facility: [facility] Address: [address] [place] [address] Performed By: #### 7 77-3 ####[facility] LABCLIA [id number] [address] Wade 09-27-2024 CNPN Telephone (INTMWS) LAZARO GARZON ([id number]) 1955 M Date Time Provider Department 09/27/24 JAGJIT CHEEMA During your visit today, we [...] - Rash Date Reviewed: 09/23/2024 Reviewed by: Runkle, Brandie, ENVIRONMENTAL SERVICES DIRECTOR - Fully Assessed Reason for Visit: Medication [...] of i (more content not included)... Normal [facility] CNOVon 09-23-2024 CNOV Office Visit (FAMPWS ) LAZARO GARZON ([id number]) 1955 M Date Time Provider Department 09/23/24 9:40 AM JAGJIT CHEEMAWS During your visit today, we recorded the [...] Right 1988 LAPS SURG CHOLECYSTECTOMY W/CHOLANGIOGRAPHY 2004 [facility] - Dr. 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 EPIGASTRIC HERNIA,REDUC 07/19/2023 umbilical TONSILLECTOMY PRIMARY/SECONDARY Tonsillectomy FAMILY HISTORY Problem Relation Age of Onset Hypertension Mother Heart Mother Stroke Mother Allergies Mother Breast Cancer Mother Heart Father of MD Allergies Father Asthma Daughter Allergies Sister Allergies [...] Used Substan (more content not included)... Normal [facility] Wade 09-19-2024 ILYA Telephone (PUMBHT) DURANLAZARO Trujillo ([id number]) 1955 M Date Time Provider Department 09/19/24 JAGJIT CHEEMAChalo During your visit today, we recorded the [...] MD on 09/18/2024 12:29 PM EDT Kira Hassan, ERASMO 09/19/2024 10:28 AM Signed Pt called and is notified of providers message. Pt voices understanding and would like to have an appointment and discuss with Dr Cheema. Pt scheduled 09/23/[address] Cheema. Kira Hassan, ERASMO Allergies As of Date: 09/19/2024 Noted Allergy [...] [R53.83] 10/30/2013 (more content not included)... Normal [facility] CBC W Auto Differential pane l (Bld)on 09-17-2024 Basophils (Bld) [#/Vol] 0.03 10*3/uL Normal <0.11 [facility] Comment on above: Order Comment: Speci men Type: BLOOD SPECIMENOrdering Facility: [facility] Address: [address] [place] [address] Performed By: #### 5 7021-8, 4536-7 ####[facility] LABCLIA [id number] [place] [address] [place] Basophils/100 WBC (Bld) 0.7 % Normal [facility] Comment on above: Order Comment: Speci men Type: BLOOD SPECIMENOrdering Facility: [facility] Address: [address] [place] [address] Performed By: #### 5 7021-8, 4536-7 ####[facility] LABCLIA [id number] [place] [address] [place] Differential cell count method Nom (Bld) Auto Normal [facility] Comment on above: Order Comment: Speci men Type: BLOOD SPECIMENOrdering Facility: [facility] Address: [address] [place] [address] Performed By: #### 5 7021-8, 4536-7 ####[facility] LABCLIA [id number] [place] [address] [place] Eosinophils (Bld) [#/Vol] 0.06 10*3/uL Normal <0.46 [facility] Comment on above: Order Comment: Speci men Type: BLOOD SPECIMENOrdering Facility: [facility] Address: [address] [place] [address] Performed By: #### 5 7021-8, 7-7 ####[facility] LABCLIA [id number] [place] [address] [place] Eosinophils/100 WBC (Bld) 1.4 % Normal [facility] Comment on above: Order Comment: Speci men Type: BLOOD SPECIMENOrdering Facility: [facility] Address: [address] [place] [address] Performed By: #### 5 7021-8, 7-7 ####[facility] LABCLIA [id number] [place] [address] [place] Erythrocyte distribution width (RBC) [Ratio] 13.4 % Normal 11.5-15.0 [facility] Comment on above: Order Comment: Speci men Type: BLOOD SPECIMENOrdering Facility: [facility] Address: [address] [place] [address] Performed By: #### 5 7021-8, 4537-7 ####[facility] LABCLIA [id number] [place] [address] [place] Hematocrit (Bld) [Volume fraction] 46.8 % Normal 39.0-51.0 [facility] Comment on above: Order Comment: Speci men Type: BLOOD SPECIMENOrdering Facility: [facility] Address: [address] [place] [address] Performed By: #### 5 7021-8, 4536-7 ####[facility] LABIA [id number] [place] [address] [place] Hemoglobin (Bld) [Mass/Vol] 15.6 g/dL Normal 13.0-17.0 [facility] Comment on above: Order Comment: Speci men Type: BLOOD SPECIMENOrdering Facility: [facility] Address: [address] [place] [address] Performed By: #### 5 7021-8, 7-7 ####[facility] LABCLIA [id number] [facility] [place] [address] [place] Immature granulocytes (Bld) [#/Vol] 10*3/uL Normal <0.10 [facility] Comment on above: Order Comment: Speci men Type: BLOOD SPECIMENOrdering Facility: [facility] Address: [address] [place] [address] Performed By: #### 5 7021-8, 4536-7 ####[facility] LABCLIA [id number] [place] [address] [place] Immature granulocytes/100 WBC (Bld) 0.2 % Normal [facility] Comment on above: Order Comment: Speci men Type: BLOOD SPECIMENOrdering Facility: [facility] Address: [address] [place] [address] Performed By: #### 5 7021-8, 7 ####[facility] LABCLIA [id number] [place] [address] [place] Lymphocytes (Bld) [#/Vol] 0.91 10*3/uL Low 1.00-4.00 [facility] Comment on above: Order Comment: Speci men Type: BLOOD SPECIMENOrdering Facility: [facility] Address: [address] [place] [address] Performed By: #### 5 7021-8, 7 ####[facility] LABIA [id number] [place] [address] [place] Lymphocytes/100 WBC (Bld) 20.5 % Normal [facility] Comment on above: Order Comment: Speci men Type: BLOOD SPECIMENOrdering Facility: [facility] Address: [address] [place] [address] Performed By: #### 5 7021-8, 4536-7 ####[facility] LABCLIA [id number] [place] [address] [place] MCH (RBC) [Entitic mass] 28.6 pg Normal 26.0-34.0 [facility] Comment on above: Order Comment: Speci men Type: BLOOD SPECIMENOrdering Facility: [facility] Address: [address] [place] [address] Performed By: #### 5 7021-8, 4536-7 ####[facility] LABCLIA [id number] [place] [address] [place] MCHC (RBC) [Mass/Vol] 33.3 g/dL Normal 30.5-36.0 [facility] Comment on above: Order Comment: Speci men Type: BLOOD SPECIMENOrdering Facility: [facility] Address: [address] [place] [address] Performed By: #### 5 7021-8, 4536-7 ####[facility] LABIA [id number] [place] [address] [place] MCV (RBC) [Entitic vol] 85.7 fL Normal 80.0-100.0 [facility] Comment on above: Order Comment: Speci men Type: BLOOD SPECIMENOrdering Facility: [facility] Address: [address] [place] [address] Performed By: #### 5 7021-8, 7 ####[facility] LABIA [id number] [place] [address] [place] Monocytes (Bld) [#/Vol] 0.40 10*3/uL Normal <0.87 [facility] Comment on above: Order Comment: Speci men Type: BLOOD SPECIMENOrdering Facility: [facility] Address: [address] [place] [address] Performed By: #### 5 7021-8, 7 ####[facility] LABIA [id number] [place] [address] [place] Monocytes/100 WBC (Bld) 9.0 % Normal [facility] Comment on above: Order Comment: Speci men Type: BLOOD SPECIMENOrdering Facility: [facility] Address: [address] [place] [address] Performed By: #### 5 7021-8, 4536-7 ####[facility] LABCLIA [id number] [place] [address] [place] Neutrophils (Bld) [#/Vol] 3.02 10*3/uL Normal 1.45-7.50 [facility] Comment on above: Order Comment: Speci men Type: BLOOD SPECIMENOrdering Facility: [facility] Address: [address] [place] [address] Performed By: #### 5 7021-8, 4537-7 ####[facility] LABCLIA [id number] [place] [address] [place] Neutrophils/100 WBC (Bld) 68.2 % Normal [facility] Comment on above: Order Comment: Speci men Type: BLOOD SPECIMENOrdering Facility: [facility] Address: [address] [place] [address] Performed By: #### 5 7021-8, 4537-7 ####[facility] LABCLIA [id number] [place] [address] [place] Nucleated RBC (Bld) [#/Vol] 10*3/uL Normal <0.01 [facility] Comment on above: Order Comment: Speci men Type: BLOOD SPECIMENOrdering Facility: [facility] Address: [address] [place] [address] Performed By: #### 5 7021-8, 4537-7 ####[facility] LABIA [id number] [place] [address] [place] Nucleated RBC/100 WBC (Bld) [Ratio] 0.0 /100 WBC Normal [facility] Comment on above: Order Comment: Speci men Type: BLOOD SPECIMENOrdering Facility: [facility] Address: [address] [place] [address] Performed By: #### 5 7021-8, 4537-7 ####[facility] LABCLIA [id number] [place] [address] [place] Platelet mean volume (Bld) [Entitic vol] 11.7 fL Normal 9.0-12.7 [facility] Comment on above: Order Comment: Speci men Type: BLOOD SPECIMENOrdering Facility: [facility] Address: [address] [place] [address] Performed By: #### 5 7021-8, 4537-7 ####[facility] LABCLIA [id number] [place] [address] [place] Platelets (Bld) [#/Vol] 143 10*3/uL Low 150-400 [facility] Comment on above: Order Comment: Speci men Type: BLOOD SPECIMENOrdering Facility: [facility] Address: [address] [place] [address] Performed By: #### 5 7021-8, 4537-7 ####[facility] LABCLIA [id number] [place] [address] [place] RBC (Bld) [#/Vol] 5.46 10*6/uL Normal 4.20-6.00 [facility] Comment on above: Order Comment: Speci men Type: BLOOD SPECIMENOrdering Facility: [facility] Address: [address] [place] [address] Performed By: #### 5 7021-8, 4537-7 ####[facility] LABCLIA [id number] [place] [address] [place] WBC (Bld) [#/Vol] 4.43 10*3/uL Normal 3.70-11.00 [facility] Comment on above: Order Comment: Speci men Type: BLOOD SPECIMENOrdering Facility: [facility] Address: [address] [place] [address] Performed By: #### 5 7021-8, 4537-7 ####[facility] LABCLIA [id number] [facility] [address] [place] [address] [place] Comprehensive metabolic 2000 panelon 09-17-2024 Albumin [Mass/Vol] 4.4 g/dL Normal 3.9-4.9 [facility] Comment on above: Order Comment: Speci men Type: BLOOD SPECIMENOrdering Facility: [facility] Address: [address] [place] [address] Performed By: #### 2 4323-8, T4FTI, 98065-0 ####[facility] LABCLIA [id number] [place] [address] [place] ALP [Catalytic activity/Vol] 71 U/L Normal 38-113 [facility] Comment on above: Order Comment: Speci men Type: BLOOD SPECIMENOrdering Facility: [facility] Address: [address] [place] [address] Performed By: #### 2 4323-8, T4FTI, 47352-5 ####[facility] LABCLIA [id number] [place] [address] [place] ALT [Catalytic activity/Vol] 31 U/L Normal 10-54 [facility] Comment on above: Order Comment: Speci men Type: BLOOD SPECIMENOrdering Facility: [facility] Address: [address] [place] [address] Performed By: #### 2 4323-8, T4FTI, 47407-0 ####[facility] LABCLIA [id number] [place] [id number] [place] Anion gap [Moles/Vol] 13 mmol/L Normal 8-15 [facility] Comment on above: Order Comment: Speci men Type: BLOOD SPECIMENOrdering Facility: [facility] Address: [address] [place] [address] Performed By: #### 2 4323-8, T4FTI, 19596-6 ####[facility] LABCLIA [id number] [place] [id number] [place] AST [Catalytic activity/Vol] 25 U/L Normal 14-40 [facility] Comment on above: Order Comment: Speci men Type: BLOOD SPECIMENOrdering Facility: [facility] Address: [address] [place] [address] Performed By: #### 2 4323-8, T4FTI, 08562-3 ####[facility] LABCLIA [id number] [place] [address] [place] Bilirubin [Mass/Vol] 1.0 mg/dL Normal 0.2-1.3 [facility] Comment on above: Order Comment: Speci men Type: BLOOD SPECIMENOrdering Facility: [facility] Address: [address] [place] [address] Performed By: #### 2 4323-8, T4FTI, 72877-6 ####[facility] LABCLIA [id number] [place] [address] [place] Calcium [Mass/Vol] 9.7 mg/dL Normal 8.5-10.2 [facility] Comment on above: Order Comment: Speci men Type: BLOOD SPECIMENOrdering Facility: [facility] Address: [address] [place] [address] Performed By: #### 2 4323-8, T4FTI, 36457-1 ####[facility] LABCLIA [id number] [place] [address] [place] Chloride [Moles/Vol] 104 mmol/L Normal 98-107 [facility] Comment on above: Order Comment: Speci men Type: BLOOD SPECIMENOrdering Facility: [facility] Address: [address] [place] [address] Performed By: #### 2 4323-8, T4FTI, 69941-2 ####[facility] LABCLIA [id number] [place] [id number] [place] CO2 [Moles/Vol] 24 mmol/L Normal 22-30 [facility] Comment on above: Order Comment: Speci men Type: BLOOD SPECIMENOrdering Facility: [facility] Address: [address] [place], [place] [address] Performed By: #### 2 4323-8, T4, ####[facility] LABCLIA [id number] [place] [id number] [place] Creatinine [Mass/Vol] 1.00 mg/dL Normal 0.73-1.22 [facility] Comment on above: Order Comment: Dunia peters Type: BLOOD SPECIMENOrdering Facility: [facility] Address: [address] [place] [address] Performed By: #### 2 4323-8, T4, 27079-5 ####[facility] LABIA [id number] [place] [address] [place] Creatinine and Glomerular filtration rate.predicted panel (S/P/Bld) 83 mL/min/1.73m??? Normal >=60 [facility] Comment on above: Order Comment: Dunia peters Type: BLOOD SPECIMENOrdering Facility: [facility] Address: [address] [place] [address] Result Comment: Jayshree mated Glomerular Filtration Rate [...] actual GFR. Performed By: #### 2 4323-8, T4, ####[facility] LABIA [id number] [address] [address] [place] Glucose [Mass/Vol] 117 mg/dL High 74-99 [facility] Comment on above: Order Comment: Dunia peters Type: BLOOD SPECIMENOrdering Facility: [facility] Address: [address] [place] [address] Result Comment: The [place] [employer] (ADA) provides guidance for cutoff [...] Standards of Medical Care in Diabetes 2016, [place] [employer]. Diabetes Care. 2016.39(Suppl 1). Performed By: #### 2 432-8, T4FTI, 28291-4 ####[facility] LABCLIA [id number] [place] [address] [place] Potassium [Moles/Vol] 4.1 mmol/L Normal 3.7-5.1 [facility] Comment on above: Order Comment: Speci men Type: BLOOD SPECIMENOrdering Facility: [facility] Address: [address] [place] [address] Performed By: #### 2 4328, T4FT, ####[facility] LABCLIA [id number] [place] [address] [place] Protein [Mass/Vol] 7.4 g/dL Normal 6.3-8.0 [facility] Comment on above: Order Comment: Speci men Type: BLOOD SPECIMENOrdering Facility: [facility] Address: [address] [place] [address] Performed By: #### 2 432-8, T4FT, ####[facility] LABCLIA [id number] [place] [id number] [place] Sodium [Moles/Vol] 141 mmol/L Normal 136-144 [facility] Comment on above: Order Comment: Speci men Type: BLOOD SPECIMENOrdering Facility: [facility] Address: [address] [place] [address] Performed By: #### 2 4323-8, T4FTI, 88998-7 ####[facility] LABCLIA [id number] [place] [address] [place] Urea nitrogen [Mass/Vol] 12 mg/dL Normal 9-24 [facility] Comment on above: Order Comment: Speci men Type: BLOOD SPECIMENOrdering Facility: [facility] Address: [address] [place] [address] Performed By: #### 2 4323-8, T4FTI, 17164-8 ####[facility] LABCLIA [id number] [place] [address] [place] ESR Westergren method (Bld) [Velocity]on 09-17-2024 ESR (Bld) [Velocity] 16 mm/h High 0-15 [facility] Comment on above: Order Comment: Speci men Type: BLOOD SPECIMENOrdering Facility: [facility] Address: [address] [place] [address] Performed By: #### 5 7021-8, 4537-7 ####[facility] LABIA [id number] [place] [address] [place] Lipid 1996 panelon 5 Cholesterol [Mass/Vol] 134 mg/dL Normal <200 [facility] Comment on above: Order Comment: Speci men Type: BLOOD SPECIMENOrdering Facility: [facility] Address: [address] [place] [address] Result Comment: <200 mg/dL, Desirable 200-239 mg/dL, Borderline high >239 mg/dL, High Performed By: #### 2 4323-8, T4FTI, 10754-8 ####[facility] LABIA [id number] [place] [address] [place] Cholesterol in HDL [Mass/Vol] 30 mg/dL Low >39 [facility] Comment on above: Order Comment: Speci men Type: BLOOD SPECIMENOrdering Facility: [facility] Address: [address] [place] [address] Result Comment: 40-5 9 mg/dL, Acceptable >59 mg/dL, High: Negative risk factor for coronary heart disease <40 mg/dL, Low: Positive risk factor for coronary heart disease Performed By: #### 2 4323-8, T4FT, ####[facility] LABCLIA [id number] [address] [address] [place] Cholesterol in LDL [Mass/Vol] 46 mg/dL Normal <100 [facility] Comment on above: Order Comment: Speci men Type: BLOOD SPECIMENOrdering Facility: [facility] Address: [address] [place] [address] Result Comment: <100 mg/dL, Optimal 100-129 mg/dL, Near optimal/above optimal 130-159 mg/dL, Borderline high 160-189 mg/dL, High >189 mg/dL, Very high Secondary prevention optimal LDL Cholesterol levels are recommended to be < 70 mg/dL Performed By: #### 2 4323-8, T4, ####[facility] LABCLIA [id number] [address] [place] Cholesterol in LDL/Cholesterol in HDL [Mass ratio] 1.53 {ratio} Normal <2.54 [facility] Comment on above: Order Comment: Paragi men Type: BLOOD SPECIMENOrdering Facility: [facility] Address: [address] [place] [address] Result Comment: Refe rence: 1. National Cholesterol Education Program ATP III Guideline At-A-Glance Quick Desk Reference: National Heart, Lung, and Blood Holmes. National Institutes of Health. 2001: NIH Publication No. 01-3305. 2. An International Atherosclerosis Society position paper: global recommendations for the management of dyslipidemia: executive summary, Atherosclerosis. 2014: 232(2):410-413. Performed By: #### 2 4323-8, T4FTI, ####[facility] LABCLIA [id number] [address] [place] Cholesterol in VLDL [Mass/Vol] 58 mg/dL High <30 [facility] Comment on above: Order Comment: Speci men Type: BLOOD SPECIMENOrdering Facility: [facility] Address: [address] [place], [place] [address] Performed By: #### 2 432-8, T4FT, ####[facility] LABCLIA [id number] [address] [place] [address] [place] Cholesterol non HDL [Mass/Vol] 104 mg/dL Normal <130 [facility] Comment on above: Order Comment: Speci men Type: BLOOD SPECIMENOrdering Facility: [facility] Address: [address] [place] [address] Result Comment: <130 mg/dL, Optimal 130-159 mg/dL, Near optimal/above optimal 160-189 mg/dL, Borderline high 190-219 mg/dL, High >219 mg/dL, Very high Secondary prevention optimal non HDL Cholesterol levels are recommended to be <100 mg/dL Performed By: #### 2 4328, T4, ####[facility] LABCLIA [id number] [address] [address] [place] Cholesterol.total/Cho lesterol in HDL [Mass ratio] 4.47 {ratio} Normal <5.10 [facility] Comment on above: Order Comment: Speci men Type: BLOOD SPECIMENOrdering Facility: [facility] Address: [address] [place] [address] Performed By: #### 2 4323-8, T4, ####[facility] LABCLIA [id number] [address] [place] [address] [place] FASTING TIME 12 hrs Normal [facility] Comment on above: Order Comment: Speci men Type: BLOOD SPECIMENOrdering Facility: [facility] Address: [address] [place] [address] Performed By: #### 2 4323-8, T4, ####[facility] LABCLIA [id number] [address] [place] [address] [place] Triglyceride [Mass/Vol] 292 mg/dL High <150 [facility] Comment on above: Order Comment: Speci men Type: BLOOD SPECIMENOrdering Facility: [facility] Address: [address] [place] [address] Result Comment: <150 mg/dL, Normal 150-199 mg/dL, Borderline high 200-499 mg/dL, High >499 mg/dL, Very high Performed By: #### 2 4323-8, T4FTI, 89174-0 ####[facility] LABCLIA [id number] [place] [address] [place] T4/FTI/T4Uon 09-17-2024 FTI 6.0 ug/dL Normal 5.3-10.8 [facility] Comment on above: Order Comment: Speci men Type: BLOOD SPECIMENOrdering Facility: [facility] Address: [address] [place] [address] Performed By: #### 2 432-8, T4FTI, 10654-0 ####[facility] LABCLIA [id number] [place] [address] [place] T4 [Mass/Vol] 6.8 ug/dL Normal 5.5-10.2 [facility] Comment on above: Order Comment: Speci men Type: BLOOD SPECIMENOrdering Facility: [facility] Address: [address] [place] [address] Performed By: #### 2 4323-8, T4FTI, 46780-9 ####[facility] LABCLIA [id number] [place] [address] [place] T4 uptake [Mass/Vol] 1.13 Normal 0.91-1.19 [facility] Comment on above: Order Comment: Speci men Type: BLOOD SPECIMENOrdering Facility: [facility] Address: [address] [place] [address] Performed By: #### 2 4323-8, T4FTI, 18532-0 ####[facility] LABCLIA [id number] [place] [address] [place] TSH SerPl-aCncon 09-17-2024 TSH Qn 2.780 m[IU]/L Normal 0.270-4.20 0 [facility] Comment on above: Order Comment: Speci men Type: BLOOD SPECIMENOrdering Facility: [facility] Address: [address] [place] [address] Performed By: #### 3 016-3 ####[facility] LABCLIA [id number] [place] [id number] [place] CNOVon 09-11-2024 CNOV Office Visit (FAMPWS ) LAZARO GARZON ([id number]) 1955 M Date Time Provider Department 09/11/24 [...] checked by Dr Ramos, urology. Still seeing [facility]. MEDICATIONS: Current Outpatient Medications Medication [...] CHOLECYSTECTOMY W/CHOLANGIOG (more content not included)... Normal [facility] Cardiology Visit Reporton Cardiology Visit Report [facility] [address] [place] [address] OFFICE VISIT Date of Service: 08/16/24 MR#: [id number] Acct: [id number] Name: LAZARO GARZON Rep #: [id number] : 1955 Provider: SARA beckett Age/Sex: 68/M Location: 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: No Accompanied by: Self Is patient in pain?: No Allergies Sulfa (Sulfonamide Antibiotics) Allergy (Verified 08/16/24 10:34) Unknown Medications ???Medication ???Instructions ???Recorded ???Confirmed ???Type multivitamin,nl-zykw-qvdszuk s 27 1 tab PO DAILY supplement 12/10/13 08/16/24 History mg-0.4 mg tablet albuterol sulfate 90 mcg/actuation 1 - 2 puff inhalation Q6H PRN RI N 07/08/19 08/16/24 History aerosol inhaler Asthma [...] test Acute pyelonephritis Atherosclerotic heart disease of [place] coronary artery without angina pectoris Atrial flutter [...] quit date: 06/19/ (more content not included)... [facility] 07-12-2024 [facility] Telephone (FAMPWS) DURANLAZARO MCFARLANE ([id number]) 1955 M Date Time Provider Department 07/12/24 JAGJIT CHEEMA During your visit today, we [...] MA - Fully Assessed Reason for Visit: García [Other] Prescriptions as of 07/12/2024 - potassium [...] 07/26/2023 Diagnosed: 07/26/2023 No response to treatment [[id number]] 07/26/2023 07/26/2023 Diagnosed: 07/26/2023 Otitis externa [H60.90] 07/26/2023 07/26/2023 Diagnosed: 07/26/2023 Postprocedural state [Z98.890] 07/26/2023 07/26/2023 Diagnosed: 07/26/2023 Presence of stent in coronary artery [Z95.5] 07/26/2023 Diagnosed: 07/26/2023 Status post coronary seymour (more content not included)... Normal [facility] CNOVon 07-08-2024 CNOV Office Visit (FAMPWS ) LAZARO GARZON ([id number]) 1955 Date Time Provider Department 07/08/24 9:00 AM [...] Abs Lymph 1.00 - 4.00 k/uL 1.20 [place]% % 8.1 Abs [place] <0.87 k/uL 0.60 Eosin% % 0.9 Abs [...] Right 1988 LAPS SURG CHOLECYSTECTOMY W/CHOLANGIOGRAPHY 2004 [facility] - Dr. Bales OPEN REPAIR OF ROTATOR CUFF ACUTE Rotator cuff repair PERCUTANEOUS CORONARY INTERVENTION 2007 stent to LAD REPAIR EPIGASTRIC HERNIA,REDUC 07/19/2023 umbilical TONSILLECTOMY PRIMARY/SECONDARY Tonsillectomy FAMILY HISTORY Problem Relation Age of Onset Hypertension Mother Heart Mother Stroke Mother Allergies Mother Breast Cancer Mother Heart Father of MD Allergies Father Asthma Daughter Allergies Sister Allergies [...] current m (more content not included)... Normal [facility] HbA1c (Bld)on 07-08-2024 Average glucose Estimated from glycated hemoglobin (Bld) [Mass/Vol] 103 mg/dL Normal [facility] Comment on above: Order Comment: Dunia peters Type: BLOOD SPECIMENOrdering Facility: [facility] Address: [address] [place] [address] Result Comment: eAG: (Estimated average glucose) is a calculated value from HgbA1c and is technology sales representative of the average blood glucose level in the last 2-3 month period. Performed By: #### 5 5454-3 ####[facility] LABCLIA [id number] [place] [address] [place] HbA1c (Bld) [Mass fraction] 5.2 % Normal 4.3-5.6 [facility] Comment on above: Order Comment: Dunia peters Type: BLOOD SPECIMENOrdering Facility: [facility] Address: [address] [place] [address] Result Comment: Amer ican Diabetes Association guidelines indicate that patients with HgbA1c in the range 5.7-6.4% are at increased risk for development of diabetes, and intervention by lifestyle modification may be beneficial. HgbA1c greater or equal to 6.5% is considered diagnostic of diabetes. Performed By: #### 5 5454-3 ####[facility] LABIA [id number] [place] [address] [place] POTASSIUMon 07-08-2024 Potassium [Moles/Vol] 4.1 mmol/L Normal 3.7-5.1 [facility] Comment on above: Order Comment: Dunia peters Type: BLOOD SPECIMENOrdering Facility: [facility] Address: [address] [place] [address] Performed By: #### K 1 ####[facility] LABCLIA [id number] [place] [address] [place] XR CHEST 2V [...] hazy opacities in the left lower lung. [place] [facility]: [facility] Transcribe Date/Time: Jul 08 2024 11:41A Dictated by : LETTY THOMAS MD This examination was interpreted and the report reviewed and electronically signed by: LETTY THOMAS MD on Jul 08 2024 11:43AM EST [id number] Normal [facility] XR Chest PA and Lateralon IMPRESSION: Interval resolution/near total resolution of small hazy opacities in the left lower lung. [place]: [facility] Transcribe Date/Time: Jul 08 2024 11:41A Dictated [...] the spine. DIVISION OF RADIOLOGY Provider, Tavo Rocha - 07/08/2024 * * *Final Report* * [...] hazy opacities in the left lower lung. [place] [employer]: [facility] Transcribe Date/Time: Jul 08 2024 11:41A Dictated by : LETTY THOMAS MD This examination was interpreted and the report reviewed and electronically signed by: LETTY THOMAS MD on Jul 08 2024 11:43AM EST [facility] Radiology Study observation (narrative) [facility] XR Chest PA and LateralOrder ed By: Cc Provider on 07-08-2024 [facility] LAZAR[facility] GARZON ([id number]) 1955 M Date Time Provider Department 06/25/24 JAGJIT CHEEMA During your visit today, we [...] Visit Diagnosis:Hypokalemia [E87.6] Order(s):POTASSIUM [SQK1] Order #: [id number] FUTURE HEMOGLOBIN A1C [GRVHN6U] Order #: [id number] FUTURE Prescriptions as of 06/25/2024 - doxycycline [...] Abnormal card (more content not included)... Normal [facility] Basic metabolic 2000 panelon 06-24-2024 Anion gap [Moles/Vol] 13 mmol/L Normal 8-15 [facility] Comment on above: Order Comment: Speci men Type: BLOOD SPECIMENOrdering Facility: [facility] Address: [address] [place] [address] Performed By: #### 2 4321-2 ####[facility] LABCLIA [id number] [facility] [id number] [address] [place] Calcium [Mass/Vol] 9.6 mg/dL Normal 8.5-10.2 [facility] Comment on above: Order Comment: Speci men Type: BLOOD SPECIMENOrdering Facility: [facility] Address: [address] [place] [address] Performed By: #### 2 4321-2 ####[facility] LABCLIA [id number] [place] [address] [place] Chloride [Moles/Vol] 100 mmol/L Normal 98-107 [facility] Comment on above: Order Comment: Speci men Type: BLOOD SPECIMENOrdering Facility: [facility] Address: [address] [place] [address] Performed By: #### 2 4321-2 ####[facility] LABCLIA [id number] [place] [address] [place] CO2 [Moles/Vol] 25 mmol/L Normal 22-30 [facility] Comment on above: Order Comment: Speci men Type: BLOOD SPECIMENOrdering Facility: [facility] Address: [address] [place] [address] Performed By: #### 2 4321-2 ####[facility] LABCLIA [id number] [place] [address] [place] Creatinine [Mass/Vol] 1.11 mg/dL Normal 0.73-1.22 [facility] Comment on above: Order Comment: Speci men Type: BLOOD SPECIMENOrdering Facility: [facility] Address: [address] [place] [address] Performed By: #### 2 4321-2 ####[facility] LABCLIA [id number] [place] [address] [place] Creatinine and Glomerular filtration rate.predicted panel (S/P/Bld) 73 mL/min/1.73m??? Normal >=60 [facility] Comment on above: Order Comment: Speci men Type: BLOOD SPECIMENOrdering Facility: [facility] Address: [address] [place] [address] Result Comment: Jayshree mated Glomerular Filtration Rate [...] actual GFR. Performed By: #### 2 4321-2 ####[facility] LABIA [id number] [place] [address] [place] Glucose [Mass/Vol] 167 mg/dL High 74-99 [facility] Comment on above: Order Comment: Dunia peters Type: BLOOD SPECIMENOrdering Facility: [facility] Address: [address] [place] [address] Result Comment: The [place] Diabetes Association (ADA) provides guidance for cutoff [...] Standards of Medical Care in Diabetes 2016, [place] Diabetes Association. Diabetes Care. 2016.39(Suppl 1). Performed By: #### 2 4321-2 ####[facility] LABIA [id number] [place] [address] [place] Potassium [Moles/Vol] 3.6 mmol/L Low 3.7-5.1 [facility] Comment on above: Order Comment: Dunia peters Type: BLOOD SPECIMENOrdering Facility: [facility] Address: [address] [place] [address] Performed By: #### 2 4321-2 ####[facility] LABIA [id number] [place] [address] [place] Sodium [Moles/Vol] 138 mmol/L Normal 136-144 [facility] Comment on above: Order Comment: Speci men Type: BLOOD SPECIMENOrdering Facility: [facility] Address: [address] [place] [address] Performed By: #### 2 4321-2 ####[facility] LABCLIA [id number] [place] [address] [place] Urea nitrogen [Mass/Vol] 17 mg/dL Normal 9-24 [facility] Comment on above: Order Comment: Speci men Type: BLOOD SPECIMENOrdering Facility: [facility] Address: [address] [place] [address] Performed By: #### 2 4321-2 ####[facility] LABCLIA [id number] [place] [address] [place] CBC W Auto Differential pane l (Bld)on 06-24-2024 Basophils (Bld) [#/Vol] 0.04 10*3/uL Normal <0.11 [facility] Comment on above: Order Comment: Speci men Type: BLOOD SPECIMENOrdering Facility: [facility] Address: [address] [place] [address] Performed By: #### 5 7021-8 ####[facility] LABCLIA [id number] [place] [address] [place] Basophils/100 WBC (Bld) 0.5 % Normal [facility] Comment on above: Order Comment: Speci men Type: BLOOD SPECIMENOrdering Facility: [facility] Address: [address] [place] [address] Performed By: #### 5 7021-8 ####[facility] LABCLIA [id number] [place] [address] [place] Differential cell count method Nom (Bld) Auto Normal [facility] Comment on above: Order Comment: Speci men Type: BLOOD SPECIMENOrdering Facility: [facility] Address: [address] [place] [address] Performed By: #### 5 7021-8 ####[facility] LABCLIA [id number] [place] [address] [place] Eosinophils (Bld) [#/Vol] 0.07 10*3/uL Normal <0.46 [facility] Comment on above: Order Comment: Speci men Type: BLOOD SPECIMENOrdering Facility: [facility] Address: [address] [place] [address] Performed By: #### 5 7021-8 ####[facility] LABCLIA [id number] [place] [address] [place] Eosinophils/100 WBC (Bld) 0.9 % Normal [facility] Comment on above: Order Comment: Speci men Type: BLOOD SPECIMENOrdering Facility: [facility] Address: [address] [place] [address] Performed By: #### 5 7021-8 ####[facility] LABCLIA [id number] [place] [address] [place] Erythrocyte distribution width (RBC) [Ratio] 13.3 % Normal 11.5-15.0 [facility] Comment on above: Order Comment: Speci men Type: BLOOD SPECIMENOrdering Facility: [facility] Address: [address] [place] [address] Performed By: #### 5 7021-8 ####[facility] LABCLIA [id number] [place] [address] [place] Hematocrit (Bld) [Volume fraction] 49.5 % Normal 39.0-51.0 [facility] Comment on above: Order Comment: Speci men Type: BLOOD SPECIMENOrdering Facility: [facility] Address: [address] [place] [address] Performed By: #### 5 7021-8 ####[facility] LABCLIA [id number] [place] [address] [place] Hemoglobin (Bld) [Mass/Vol] 16.4 g/dL Normal 13.0-17.0 [facility] Comment on above: Order Comment: Speci men Type: BLOOD SPECIMENOrdering Facility: [facility] Address: [address] [place] [address] Performed By: #### 5 7021-8 ####[facility] LABCLIA [id number] [place] [address] [place] Immature granulocytes (Bld) [#/Vol] 0.03 10*3/uL Normal <0.10 [facility] Comment on above: Order Comment: Speci men Type: BLOOD SPECIMENOrdering Facility: [facility] Address: [address] [place] [address] Performed By: #### 5 7021-8 ####[facility] LABCLIA [id number] [place] [address] [place] Immature granulocytes/100 WBC (Bld) 0.4 % Normal [facility] Comment on above: Order Comment: Speci men Type: BLOOD SPECIMENOrdering Facility: [facility] Address: [address] [place] [address] Performed By: #### 5 7021-8 ####[facility] LABCLIA [id number] [place] [address] [place] Lymphocytes (Bld) [#/Vol] 1.20 10*3/uL Normal 1.00-4.00 [facility] Comment on above: Order Comment: Speci men Type: BLOOD SPECIMENOrdering Facility: [facility] Address: [address] [place] [address] Performed By: #### 5 7021-8 ####[facility] LABCLIA [id number] [place] [address] [place] Lymphocytes/100 WBC (Bld) 16.3 % Normal [facility] Comment on above: Order Comment: Speci men Type: BLOOD SPECIMENOrdering Facility: [facility] Address: [address] [place] [address] Performed By: #### 5 7021-8 ####[facility] LABIA [id number] [place] [address] [place] MCH (RBC) [Entitic mass] 28.7 pg Normal 26.0-34.0 [facility] Comment on above: Order Comment: Speci men Type: BLOOD SPECIMENOrdering Facility: [facility] Address: [address] [place] [address] Performed By: #### 5 7021-8 ####[facility] [id number] [place] [address] [place] MCHC (RBC) [Mass/Vol] 33.1 g/dL Normal 30.5-36.0 [facility] Comment on above: Order Comment: Speci men Type: BLOOD SPECIMENOrdering Facility: [facility] Address: [address] [place] [address] Performed By: #### 5 7021-8 ####[facility] [id number] [place] [address] [place] MCV (RBC) [Entitic vol] 86.7 fL Normal 80.0-100.0 [facility] Comment on above: Order Comment: Speci men Type: BLOOD SPECIMENOrdering Facility: [facility] Address: [address] [place] [address] Performed By: #### 5 7021-8 ####[facility] [id number] [place] [address] [place] Monocytes (Bld) [#/Vol] 0.60 10*3/uL Normal <0.87 [facility] Comment on above: Order Comment: Speci men Type: BLOOD SPECIMENOrdering Facility: [facility] Address: [address] [place] [address] Performed By: #### 5 7021-8 ####[facility] LABIA [id number] [place] [address] [place] Monocytes/100 WBC (Bld) 8.1 % Normal [facility] Comment on above: Order Comment: Speci men Type: BLOOD SPECIMENOrdering Facility: [facility] Address: [address] [place] [address] Performed By: #### 5 7021-8 ####[facility] LABCLIA [id number] [place] [address] [place] Neutrophils (Bld) [#/Vol] 5.44 10*3/uL Normal 1.45-7.50 [facility] Comment on above: Order Comment: Speci men Type: BLOOD SPECIMENOrdering Facility: [facility] Address: [address] [place] [address] Performed By: #### 5 7021-8 ####[facility] LABCLIA [id number] [place] [address] [place] Neutrophils/100 WBC (Bld) 73.8 % Normal [facility] Comment on above: Order Comment: Speci men Type: BLOOD SPECIMENOrdering Facility: [facility] Address: [address] [place] [address] Performed By: #### 5 7021-8 ####[facility] LABCLIA [id number] [place] [address] [place] Nucleated RBC (Bld) [#/Vol] 10*3/uL Normal <0.01 [facility] Comment on above: Order Comment: Speci men Type: BLOOD SPECIMENOrdering Facility: [facility] Address: [address] [place] [address] Performed By: #### 5 7021-8 ####[facility] LABCLIA [id number] [place] [address] [place] Nucleated RBC/100 WBC (Bld) [Ratio] 0.0 /100 WBC Normal [facility] Comment on above: Order Comment: Speci men Type: BLOOD SPECIMENOrdering Facility: [facility] Address: [address] [place] [address] Performed By: #### 5 7021-8 ####[facility] LABCLIA [id number] [place] [address] [place] Platelet mean volume (Bld) [Entitic vol] 11.4 fL Normal 9.0-12.7 [facility] Comment on above: Order Comment: Speci men Type: BLOOD SPECIMENOrdering Facility: [facility] Address: [address] [place] [address] Performed By: #### 5 7021-8 ####[facility] LABIA [id number] [place] [address] [place] Platelets (Bld) [#/Vol] 242 10*3/uL Normal 150-400 [facility] Comment on above: Order Comment: Speci men Type: BLOOD SPECIMENOrdering Facility: [facility] Address: [address] [place] [address] Performed By: #### 5 7021-8 ####[facility] LABIA [id number] [place] [address] [place] RBC (Bld) [#/Vol] 5.71 10*6/uL Normal 4.20-6.00 [facility] Comment on above: Order Comment: Speci men Type: BLOOD SPECIMENOrdering Facility: [facility] Address: [address] [place] [address] Performed By: #### 5 7021-8 ####[facility] LABCLIA [id number] [place] [address] [place] WBC (Bld) [#/Vol] 7.38 10*3/uL Normal 3.70-11.00 [facility] Comment on above: Order Comment: Speci men Type: BLOOD SPECIMENOrdering Facility: [facility] Address: [address] [place] [address] Performed By: #### 5 7021-8 ####[facility] SERVANDO [id number] [place] [address] [place] CNOVon 06-24-2024 CNOV Office Visit (FAMPWS ) DURANLAZARO Trujillo ([id number]) 1955 M Date Time Provider Department 06/24/24 9:00 AM [facility] visit today, we recorded [...] Right 1988 LAPS SURG CHOLECYSTECTOMY W/CHOLANGIOGRAPHY 2004 [facility] - Dr. 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 EPIGASTRIC HERNIA,REDUC 07/19/2023 umbilical TONSILLECTOMY PRIMARY/SECONDARY Tonsillectomy FAMILY HISTORY Problem Relation Age of Onset Hypertension Mother Heart Mother Stroke Mother Allergies Mother Breast Cancer Mother Heart Father of MD Allergies Father Asthma Daughter Allergies Sister Allergies [...] Use Vap (more content not included)... Normal [facility] D dimer FEU PPP-mCncon 06-24 Fibrin D-dimer FEU (PPP) [Mass/Vol] 290 ng/mL FEU Normal <500 [facility] Comment on above: Order Comment: Speci men Type: BLOOD SPECIMENOrdering Facility: [facility] Address: [address] [place] [address] Performed By: #### 4 8065-7 ####[facility] LABCLIA [id number] [place] [address] [place] [facility] D-DIMERon 06-24-2024 Fibrin D-dimer FEU (PPP) [Mass/Vol] 290 NINF [facility] Fibrin D-dimer FEU (PPP) [Ma ss/Vol]on 06-24-2024 D Dimer Age-related Cutoff 660 ng/mL FEU [facility] 500 ng/mL FEU is the D [...] M, et al. DAMON 2014 311:1117 and Andreas Fisher N, et al. Fanny Int Med 2016 165:253. [facility] D DIMER AGE-RELATED CUTOFF 660 ng/mL FEU Normal [facility] Comment on above: Order Comment: Speci men Type: BLOOD SPECIMENOrdering Facility: [facility] Address: [address] [place] [address] Performed By: #### 4 8065-7 ####[facility] [id number] [place] [address] [facility] CNOVon 06-17-2024 CNOV Office Visit (FAMPWS ) LAZARO GARZON ([id number]) 1955 M Date Time Provider Department 06/17/24 2:20 PM JAGJIT CHEEMA FAMPWS During your visit today, [...] Right 1988 LAPS SURG CHOLECYSTECTOMY W/CHOLANGIOGRAPHY 2004 [facility] - Dr. 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 EPIGASTRIC HERNIA,REDUC 07/19/2023 umbilical TONSILLECTOMY PRIMARY/SECONDARY Tonsillectomy FAMILY HISTORY Problem Relation Age of Onset Hypertension Mother Heart Mother Stroke Mother Allergies Mother Breast Cancer Mother Heart Father of MD Allergies Father Asthma Daughter Allergies Sister Allergies Brother Allergies Daughter Social History Tobacco Use Smoking status: Former Current p (more content not included)... Normal [facility] Wade 06-17-2024 [facility] Telephone (FAMPWS) DURANLAZARO ([id number]) 1955 M Date Time Provider Department 06/17/24 JAGJIT CHEEMA During your visit today, we [...] Diagnosed: 02 (more content not included)... Normal [facility] Telephone ([facility]) DURANLAZARO MCFARLANE ([id number]) 1955 M Date Time Provider Department 06/17/24 JAGJIT CHEEMA [facility] During your visit today, we recorded the following information about you: Radha Lawson 06/17/2024 10:42 AM Signed Patient calling in to request an order for an xray of his chest. He feels his cold going into his chest and has concerns of pneumonia. Please review and advise patient, okay to leave detailed message. Radha Lawson June 17, 2024 10:42 AM Brandie Lange [...] Fully Assessed Reason for Visit: Patient Question [0746] Orders [681] Prescriptions as of 06/17/2024 - doxycycline (VIBRA-TABS) [...] 07/26/2023 Diagno (more content not included)... Normal [facility] XR CHEST 2V FRONTAL/LATon XR CHEST 2V [...] the left lower lung. Consider short-term follow-up. [place] Dock: OSMANI Transcribe Date/Time: Jun 17 2024 3:25P Dictated by : LETTY THOMAS MD This examination was interpreted and the report reviewed and electronically signed by: LETTY THOMAS MD on Jun 17 2024 3:29PM EST [id number] Normal [facility] XR Chest PA and Lateralon IMPRESSION: Small hazy opacities overlying the left lower lung. Consider short-term follow-up. [place]: OSMANI Transcribe Date/Time: Jun 17 2024 3:25P Dictated by : LETTY THOMAS MD This examination was interpreted and the report reviewed and electronically signed by: LETTY THOMAS MD on Jun 17 2024 3:29PM [facility] DIVISION OF RADIOLOGY * * *Final [...] soft tissues: Unremarkable. DIVISION OF RADIOLOGY Provider, [facility] - 06/17/2024 * * *Final Report* * [...] the left lower lung. Consider short-term follow-up. [place]: OSMANI Transcribe Date/Time: Jun 17 2024 3:25P Dictated by : LETTY THOMAS MD This examination was interpreted and the report reviewed and electronically signed by: LETTY THOMAS MD on Jun 17 2024 3:29PM [facility] Radiology Study observation (narrative) [facility] XR Chest PA and LateralOrder ed By: [facility] Provider on 06-17-2024 [facility] CNOVon 06-13-2024 CNOV Office Visit (UCWSTR ) LAZARO GARZON ([id number]) 1955 M Date Time Provider Department 06/13/24 4:30 PM CAROLANN LUCAS [facility] During your visit today, we recorded the following information about you: Temperature Pulse Respiration Blood pressure 97.7 degrees 90/minute 16/minute 136/74 Weight 153.1 kg Carolann Lucas APRN.BIOSOLIDS MANAGEMENT TECHNICIAN 06/13/2024 4:18 PM Signed Subjective The history is provided by the patient. No foreign language stenographer was used. HPI Lazaro Garzon is a [...] have confirmed and edited as necessary, the [facility] Review of Systems Constitutional: Negative for [...] detail warranting prompt ER evaluation. Carolann Lucas APRN.BIOSOLIDS MANAGEMENT TECHNICIAN Allergies As of Date: 06/13/2024 Noted Allergy [...] 100 m (more content not included)... Normal [facility] Testosterone, Serum Totalon 06-06-2024 Testosterone [Mass/Vol] 385.78 ng/dL Normal [facility] Comment on above: Result Comment: CENT RAL 90% REFERENCE RANGES MALE AGE <50 197.44 - 669.58 ng/dL MALE AGE > or = 50 187.72 - 684.19 ng/dL FEMALE AGE <50 8.38 - 35.01 ng/dL FEMALE AGE > or = 50 <7.00 - 35.92 ng/dL Effective as of 01/12/21 Performed By: #### L 501.9910, L509.3000 #### [facility] [address] [place], [address] PSA,Total - Annual Screenon 06-04-2024 PSA,TOT SCREEN 3.40 ng/mL Normal 0.00-4.00 [facility] Comment on above: Result Comment: This test was performed using the TPSA assay method for the [employer] chemistry system. Values obtained with different assay methods cannot be used interchangably. When changing PSA assays in the course of monitoring a patient, additional sequential testing should be carried out to confirm baseline values. Performed By: #### L 501.9910, L509.3000 #### [facility] [address] [place], [address] Wade 04-26-2024 [facility] Telephone (PERICO) DURANLAZARO Trujillo ([id number]) 1955 M Date Time Provider Department 04/26/24 LISA JAVED During your visit today, we recorded the following information about you: Lisa Javed APRN.CNP 04/26/2024 10:22 AM Signed Please see if lab can add on A1c. His blood sugar was elevated- if not he will need to come back in. Lisa Javed APRN.Sincere Car RN 04/26/2024 12:40 PM Signed Spoke with Amanda at [facility] Main lab, who states they will be able to add the hgba1c with the blood collected yesterday. Allergies As of Date: 04/26/2024 Noted Allergy Reaction SULFA (SULFONAMIDE ANTIBIOTICS) 03/10/2005 2 - Rash Date Reviewed: 04/25/2024 Reviewed by: Annel Tomlinson MA - Fully Assessed Reason for Visit: Lab add on [Other] Primary Visit Diagnosis:Elevated blood sugar [R73.9] Order(s):HEMOGLOBIN A1C [HDPSX4Y] Order #: [id number] FUTURE Prescriptions as of 04/26/2024 - meclizine [...] 07/26/2023 Diagnosed: 07/26/2023 No response to treatment [CEN3906] 07/26/2023 07/26/2023 Diagnosed: 07/26/2023 Otitis externa [H60.90] 07/26/2023 07/26/2023 Diagnosed: 07/26/2023 Postprocedural state [Z98.890] 07/26/2023 07/26/2023 Diagnosed: 07/26/2023 Presence of stent in coronary artery [Z95.5] 07/26 (more content not included)... Normal [facility] Bacteria Ur Culton Bacteria identified Cx Nom (U) ORGANISM ID: 1 <10,000 CFU/ml Normal urogenital richard Normal [facility] Comment on above: Performed By: #### 6 30-4 ####[facility] LABCLIA [id number] [place] [address] [place] CBC W Auto Differential pane l (Bld)on 04-25-2024 Basophils (Bld) [#/Vol] 0.03 10*3/uL [facility] Basophils/100 WBC (Bld) 0.5 % [facility] Differential cell count method Nom (Bld) Auto [facility] Eosinophils (Bld) [#/Vol] 0.08 10*3/uL [facility] Eosinophils/100 WBC (Bld) 1.3 % [facility] Erythrocyte distribution width (RBC) [Ratio] 13.0 % 11.5 - 15.0 % [facility] Hematocrit (Bld) [Volume fraction] 45.8 % 39.0 - 51.0 % [facility] Hemoglobin (Bld) [Mass/Vol] 15.3 g/dL 13.0 - 17.0 g/dL [facility] Immature granulocytes (Bld) [#/Vol] [facility] Immature granulocytes/100 WBC (Bld) 0.3 % [facility] Interpretation and review of laboratory results Abnormal [facility] Lymphocytes (Bld) [#/Vol] 0.90 10*3/uL Low [facility] Lymphocytes/100 WBC (Bld) 14.8 % [facility] MCH (RBC) [Entitic mass] 29.2 pg 26.0 - 34.0 pg [facility] MCHC (RBC) [Mass/Vol] 33.4 g/dL 30.5 - 36.0 g/dL [facility] MCV (RBC) [Entitic vol] 87.4 fL 80.0 - 100.0 fL [facility] Monocytes (Bld) [#/Vol] 0.53 10*3/uL NINF [facility] Monocytes/100 WBC (Bld) 8.7 % [facility] Neutrophils (Bld) [#/Vol] 4.54 10*3/uL [facility] Neutrophils/100 WBC (Bld) 74.4 % [facility] Nucleated RBC (Bld) [#/Vol] NINF [facility] Nucleated RBC/100 WBC (Bld) [Ratio] 0.0 % /100 WBC [facility] Platelet mean volume (Bld) [Entitic vol] 11.4 fL 9.0 - 12.7 fL [facility] Platelets (Bld) [#/Vol] 169 10*3/uL [facility] RBC (Bld) [#/Vol] 5.24 10*6/uL 4.20 - 6.00 m/uL [facility] WBC (Bld) [#/Vol] 6.10 10*3/uL [facility] Basophils (Bld) [#/Vol] 0.03 10*3/uL Normal <0.11 [facility] Comment on above: Order Comment: Speci men Type: BLOOD SPECIMENOrdering Facility: [facility] Address: [address] [place] [address] Performed By: #### 5 7021-8, 49775-1 ####[facility] LABCLIA [id number] [address] [place] Basophils/100 WBC (Bld) 0.5 % Normal [facility] Comment on above: Order Comment: Speci men Type: BLOOD SPECIMENOrdering Facility: [facility] Address: [address] [place], [place] [address] Performed By: #### 5 7021-8, 39613-3 ####[facility] LABCLIA [id number] [place] [address] [place] Differential cell count method Nom (Bld) Auto Normal [facility] Comment on above: Order Comment: Speci men Type: BLOOD SPECIMENOrdering Facility: [facility] Address: [address] [place] [address] Performed By: #### 5 7021-8, 93774-6 ####[facility] LABCLIA [id number] [place] [address] [place] Eosinophils (Bld) [#/Vol] 0.08 10*3/uL Normal <0.46 [facility] Comment on above: Order Comment: Speci men Type: BLOOD SPECIMENOrdering Facility: [facility] Address: [address] [place] [address] Performed By: #### 5 7021-8, 26814-3 ####[facility] LABCLIA [id number] [place] [address] [place] Eosinophils/100 WBC (Bld) 1.3 % Normal [facility] Comment on above: Order Comment: Speci men Type: BLOOD SPECIMENOrdering Facility: [facility] Address: [address] [place] [address] Performed By: #### 5 7021-8, 69522-6 ####[facility] LABCLIA [id number] [place] [address] [place] Erythrocyte distribution width (RBC) [Ratio] 13.0 % Normal 11.5-15.0 [facility] Comment on above: Order Comment: Speci men Type: BLOOD SPECIMENOrdering Facility: [facility] Address: [address] [place] [address] Performed By: #### 5 7021-8, 67177-7 ####[facility] LABCLIA [id number] [place] [address] [place] Hematocrit (Bld) [Volume fraction] 45.8 % Normal 39.0-51.0 [facility] Comment on above: Order Comment: Speci men Type: BLOOD SPECIMENOrdering Facility: [facility] Address: [address] [place] [address] Performed By: #### 5 7021-8, 67879-2 ####[facility] LABCLIA [id number] [place] [address] [place] Hemoglobin (Bld) [Mass/Vol] 15.3 g/dL Normal 13.0-17.0 [facility] Comment on above: Order Comment: Speci men Type: BLOOD SPECIMENOrdering Facility: [facility] Address: [address] [place] [address] Performed By: #### 5 7021-8, 62144-7 ####[facility] LABIA [id number] [place] [address] [place] Immature granulocytes (Bld) [#/Vol] 10*3/uL Normal <0.10 [facility] Comment on above: Order Comment: Speci men Type: BLOOD SPECIMENOrdering Facility: [facility] Address: [address] [place] [address] Performed By: #### 5 7021-8, 42317-9 ####[facility] LABCLIA [id number] [place] [address] [place] Immature granulocytes/100 WBC (Bld) 0.3 % Normal [facility] Comment on above: Order Comment: Speci men Type: BLOOD SPECIMENOrdering Facility: [facility] Address: [address] [place] [address] Performed By: #### 5 7021-8, 92441-5 ####[facility] LABCLIA [id number] [place] [address] [place] Lymphocytes (Bld) [#/Vol] 0.90 10*3/uL Low 1.00-4.00 [facility] Comment on above: Order Comment: Speci men Type: BLOOD SPECIMENOrdering Facility: [facility] Address: [address] [place] [address] Performed By: #### 5 7021-8, 46435-0 ####[facility] LABCLIA [id number] [place] [address] [place] Lymphocytes/100 WBC (Bld) 14.8 % Normal [facility] Comment on above: Order Comment: Speci men Type: BLOOD SPECIMENOrdering Facility: [facility] Address: [address] [place] [address] Performed By: #### 5 7021-8, 82820-2 ####[facility] LABCLIA [id number] [place] [address] [place] MCH (RBC) [Entitic mass] 29.2 pg Normal 26.0-34.0 [facility] Comment on above: Order Comment: Speci men Type: BLOOD SPECIMENOrdering Facility: [facility] Address: [address] [place] [address] Performed By: #### 5 7021-8, 09742-9 ####[facility] LABCLIA [id number] [place] [address] [place] MCHC (RBC) [Mass/Vol] 33.4 g/dL Normal 30.5-36.0 [facility] Comment on above: Order Comment: Speci men Type: BLOOD SPECIMENOrdering Facility: [facility] Address: [address] [place] [address] Performed By: #### 5 7021-8, 56326-1 ####[facility] LABCLIA [id number] [place] [address] [place] MCV (RBC) [Entitic vol] 87.4 fL Normal 80.0-100.0 [facility] Comment on above: Order Comment: Speci men Type: BLOOD SPECIMENOrdering Facility: [facility] Address: [address] [place] [address] Performed By: #### 5 7021-8, 87867-8 ####[facility] LABCLIA [id number] [place] [address] [place] Monocytes (Bld) [#/Vol] 0.53 10*3/uL Normal <0.87 [facility] Comment on above: Order Comment: Speci men Type: BLOOD SPECIMENOrdering Facility: [facility] Address: [address] [place] [address] Performed By: #### 5 7021-8, 74114-1 ####[facility] LABCLIA [id number] [place] [address] [place] Monocytes/100 WBC (Bld) 8.7 % Normal [facility] Comment on above: Order Comment: Speci men Type: BLOOD SPECIMENOrdering Facility: [facility] Address: [address] [place] [address] Performed By: #### 5 7021-8, 19171-5 ####[facility] LABCLIA [id number] [place] [address] [place] Neutrophils (Bld) [#/Vol] 4.54 10*3/uL Normal 1.45-7.50 [facility] Comment on above: Order Comment: Speci men Type: BLOOD SPECIMENOrdering Facility: [facility] Address: [address] [place] [address] Performed By: #### 5 7021-8, 33839-1 ####[facility] LABCLIA [id number] [place] [address] [place] Neutrophils/100 WBC (Bld) 74.4 % Normal [facility] Comment on above: Order Comment: Speci men Type: BLOOD SPECIMENOrdering Facility: [facility] Address: [address] [place] [address] Performed By: #### 5 7021-8, 00726-1 ####[facility] LABCLIA [id number] [place] [address] [place] Nucleated RBC (Bld) [#/Vol] 10*3/uL Normal <0.01 [facility] Comment on above: Order Comment: Speci men Type: BLOOD SPECIMENOrdering Facility: [facility] Address: [address] [place] [address] Performed By: #### 5 7021-8, 50932-1 ####[facility] LABCLIA [id number] [place] [address] [place] Nucleated RBC/100 WBC (Bld) [Ratio] 0.0 /100 WBC Normal [facility] Comment on above: Order Comment: Speci men Type: BLOOD SPECIMENOrdering Facility: [facility] Address: [address] [place] [address] Performed By: #### 5 7021-8, 50883-3 ####[facility] LABCLIA [id number] [place] [address] [place] Platelet mean volume (Bld) [Entitic vol] 11.4 fL Normal 9.0-12.7 [facility] Comment on above: Order Comment: Speci men Type: BLOOD SPECIMENOrdering Facility: [facility] Address: [address] [place] [address] Performed By: #### 5 7021-8, 34581-6 ####[facility] LABCLIA [id number] [place] [id number] [place] Platelets (Bld) [#/Vol] 169 10*3/uL Normal 150-400 [facility] Comment on above: Order Comment: Speci men Type: BLOOD SPECIMENOrdering Facility: [facility] Address: [address] [place] [address] Performed By: #### 5 7021-8, 46068-7 ####[facility] LABCLIA [id number] [place] [id number] [place] RBC (Bld) [#/Vol] 5.24 10*6/uL Normal 4.20-6.00 [facility] Comment on above: Order Comment: Speci men Type: BLOOD SPECIMENOrdering Facility: [facility] Address: [address] [place] [address] Performed By: #### 5 7021-8, 35992-0 ####[facility] LABCLIA [id number] [place] [id number] [place] WBC (Bld) [#/Vol] 6.10 10*3/uL Normal 3.70-11.00 [facility] Comment on above: Order Comment: Speci men Type: BLOOD SPECIMENOrdering Facility: [facility] Address: [address] [place] [address] Performed By: #### 5 7021-8, 62029-4 ####[facility] LABCLIA [id number] [place] [address] [place] BALTAZAROVclarissa 04-25-2024 CNOV Office Visit (PERICO ) LAZARO GARZON ([id number]) 1955 M Date Time Provider Department 04/25/24 1:20 PM LISA JAVED During your visit today, we recorded the following information about you: Pulse Blood pressure Weight 78/minute 140/78 151 kg Lisa Javed APRN.CNP 04/25/2024 2:07 PM Signed 04/25/2024 Patient presents with: Dizziness: X 1 week SUBJECTIVE: This is a 68 year old that is here today for Above Complaints. For the last week has had dizziness. Described as wearing bifocals and trying to walk down the stairs. Catarina like he was spinning around this morning. [...] speech normal (more content not included)... Normal [facility] Comprehensive metabolic 2000 panelon 04-25-2024 Albumin [Mass/Vol] 4.4 g/dL Normal 3.9-4.9 [facility] Comment on above: Order Comment: Speci men Type: BLOOD SPECIMENOrdering Facility: [facility] Address: [address] [place] [address] Performed By: #### 2 4323-8 ####[facility] LABCLIA [id number] [place] [address] [place] ALP [Catalytic activity/Vol] 72 U/L Normal 38-113 [facility] Comment on above: Order Comment: Speci men Type: BLOOD SPECIMENOrdering Facility: [facility] Address: [address] [place] [address] Performed By: #### 2 4323-8 ####[facility] LABCLIA [id number] [place] [address] [place] ALT [Catalytic activity/Vol] 39 U/L Normal 10-54 [facility] Comment on above: Order Comment: Speci men Type: BLOOD SPECIMENOrdering Facility: [facility] Address: [address] [place] [address] Performed By: #### 2 4323-8 ####[facility] LABCLIA [id number] [place] [address] [place] Anion gap [Moles/Vol] 11 mmol/L Normal 8-15 [facility] Comment on above: Order Comment: Speci men Type: BLOOD SPECIMENOrdering Facility: [facility] Address: [address] [place] [address] Performed By: #### 2 4323-8 ####[facility] LABCLIA [id number] [place] [address] [place] AST [Catalytic activity/Vol] 24 U/L Normal 14-40 [facility] Comment on above: Order Comment: Speci men Type: BLOOD SPECIMENOrdering Facility: [facility] Address: [address] [place] [address] Performed By: #### 2 4323-8 ####[facility] LABCLIA [id number] [place] [address] [place] Bilirubin [Mass/Vol] 0.7 mg/dL Normal 0.2-1.3 [facility] Comment on above: Order Comment: Speci men Type: BLOOD SPECIMENOrdering Facility: [facility] Address: [address] [place] [address] Performed By: #### 2 4323-8 ####[facility] LABCLIA [id number] [place] [address] [place] Calcium [Mass/Vol] 9.2 mg/dL Normal 8.5-10.2 [facility] Comment on above: Order Comment: Speci men Type: BLOOD SPECIMENOrdering Facility: [facility] Address: [address] [place] [address] Performed By: #### 2 4323-8 ####[facility] LABCLIA [id number] [place] [address] [place] Chloride [Moles/Vol] 101 mmol/L Normal 98-107 [facility] Comment on above: Order Comment: Speci men Type: BLOOD SPECIMENOrdering Facility: [facility] Address: [address] [place] [address] Performed By: #### 2 4323-8 ####[facility] LABCLIA [id number] [place] [address] [place] CO2 [Moles/Vol] 27 mmol/L Normal 22-30 [facility] Comment on above: Order Comment: Speci men Type: BLOOD SPECIMENOrdering Facility: [facility] Address: [address] [place] [address] Performed By: #### 2 4323-8 ####[facility] LABCLIA [id number] [place] [address] [place] Creatinine [Mass/Vol] 0.97 mg/dL Normal 0.73-1.22 [facility] Comment on above: Order Comment: Dunia peters Type: BLOOD SPECIMENOrdering Facility: [facility] Address: [address] [place] [address] Performed By: #### 2 4323-8 ####[facility] LABCLIA [id number] [place] [address] [place] Creatinine and Glomerular filtration rate.predicted panel (S/P/Bld) 86 mL/min/1.73m??? Normal >=60 [facility] Comment on above: Order Comment: Dunia peters Type: BLOOD SPECIMENOrdering Facility: [facility] Address: [address] [place] [address] Result Comment: Jayshree mated Glomerular Filtration Rate [...] actual GFR. Performed By: #### 2 4323-8 ####[facility] LABCLIA [id number] [place] [address] [place] Glucose [Mass/Vol] 173 mg/dL High 74-99 [facility] Comment on above: Order Comment: Dunia peters Type: BLOOD SPECIMENOrdering Facility: [facility] Address: [address] [place] [address] Result Comment: The [place] [employer] (ADA) provides guidance for cutoff [...] Standards of Medical Care in Diabetes 2016, [place] [employer]. Diabetes Care. 2016.39(Suppl 1). Performed By: #### 2 4323-8 ####[facility] LABCLIA [id number] [address] [address] [place] Potassium [Moles/Vol] 4.1 mmol/L Normal 3.7-5.1 [facility] Comment on above: Order Comment: Speci men Type: BLOOD SPECIMENOrdering Facility: [facility] Address: [address] [place] [address] Performed By: #### 2 4323-8 ####[facility] LABCLIA [id number] [place] [address] [place] Protein [Mass/Vol] 7.3 g/dL Normal 6.3-8.0 [facility] Comment on above: Order Comment: Speci men Type: BLOOD SPECIMENOrdering Facility: [facility] Address: [address] [place] [address] Performed By: #### 2 4323-8 ####[facility] LABCLIA [id number] [place] [address] [place] Sodium [Moles/Vol] 139 mmol/L Normal 136-144 [facility] Comment on above: Order Comment: Speci men Type: BLOOD SPECIMENOrdering Facility: [facility] Address: [address] [place] [address] Performed By: #### 2 4323-8 ####[facility] LABCLIA [id number] [place] [id number] [place] Urea nitrogen [Mass/Vol] 15 mg/dL Normal 9-24 [facility] Comment on above: Order Comment: Speci men Type: BLOOD SPECIMENOrdering Facility: [facility] Address: [address] [place], [place] [address] Performed By: #### 2 4323-8 ####[facility] LABCLIA [id number] [address] [place] HbA1c (Bld)on 04-25-2024 Average glucose Estimated from glycated hemoglobin (Bld) [Mass/Vol] 105 mg/dL Normal [facility] Comment on above: Order Comment: Dunia peters Type: BLOOD SPECIMENOrdering Facility: [facility] Address: [address] [place] [address] Result Comment: eAG: (Estimated average glucose) is a calculated value from HgbA1c and is technology sales representative of the average blood glucose level in the last 2-3 month period. Performed By: #### 5 7021-8, 87484-2 ####[facility] LABCLIA [id number] [place] [address] [place] HbA1c (Bld) [Mass fraction] 5.3 % Normal 4.3-5.6 [facility] Comment on above: Order Comment: Paragi men Type: BLOOD SPECIMENOrdering Facility: [facility] Address: [address] [place] [address] Result Comment: [place] Diabetes Association guidelines indicate that patients with HgbA1c in the range 5.7-6.4% are at increased risk for development of diabetes, and intervention by lifestyle modification may be beneficial. HgbA1c greater or equal to 6.5% is considered diagnostic of diabetes. Performed By: #### 5 7021-8, 72418-0 ####[facility] LABCLIA [id number] [place] [address] [place] Urinalysis complete panel (U )on 04-25-2024 Bacteria LM.HPF (Urine sed) [#/Area] Negative Normal Negative [facility] Comment on above: Order Comment: Speci men Type: URINE SPECIMENOrdering Facility: [facility] Address: [address] [place] [address] Performed By: #### 2 4356-8 ####[facility] LABCLIA [id number] [place] [address] [place] Bilirubin Ql (U) Negative Normal Negative [facility] Comment on above: Order Comment: Speci men Type: URINE SPECIMENOrdering Facility: [facility] Address: [address] [place] [address] Performed By: #### 2 4356-8 ####[facility] LABCLIA [id number] [place] [address] [place] Clarity (Unsp spec) Clear Normal Clear [facility] Comment on above: Order Comment: Speci men Type: URINE SPECIMENOrdering Facility: [facility] Address: [address] [place] [address] Performed By: #### 2 4356-8 ####[facility] LABCLIA [id number] [place] [address] [place] Color (U) Yellow Normal Yellow [facility] Comment on above: Order Comment: Speci men Type: URINE SPECIMENOrdering Facility: [facility] Address: [address] [place] [address] Performed By: #### 2 4356-8 ####[facility] LABCLIA [id number] [place] [address] [place] Epithelial cells LM.HPF (Urine sed) [#/Area] None Seen Normal [facility] Comment on above: Order Comment: Speci men Type: URINE SPECIMENOrdering Facility: [facility] Address: [address] [place] [address] Performed By: #### 2 4356-8 ####[facility] LABCLIA [id number] [place] [address] [place] Glucose Test strip (U) [Mass/Vol] Trace Abnormal Negative [facility] Comment on above: Order Comment: Speci men Type: URINE SPECIMENOrdering Facility: [facility] Address: [address] [place] [address] Performed By: #### 2 4356-8 ####[facility] LABCLIA [id number] [place] [address] [place] Hemoglobin Ql (U) Negative Normal Negative [facility] Comment on above: Order Comment: Speci men Type: URINE SPECIMENOrdering Facility: [facility] Address: [address] [place] [address] Performed By: #### 2 4356-8 ####[facility] LABCLIA [id number] [place] [address] [place] Hyaline casts (Urine sed) [#/Area] 0 /[LPF] Normal 0 /LPF [facility] Comment on above: Order Comment: Speci men Type: URINE SPECIMENOrdering Facility: [facility] Address: [address] [place] [address] Performed By: #### 2 4356-8 ####[facility] LABCLIA [id number] [place] [address] [place] Ketones Ql (U) Negative Normal Negative [facility] Comment on above: Order Comment: Speci men Type: URINE SPECIMENOrdering Facility: [facility] Address: [address] [place] [address] Performed By: #### 2 4356-8 ####[facility] LABCLIA [id number] [place] [address] [place] Leukocyte esterase Test strip Ql (U) Negative Normal Negative [facility] Comment on above: Order Comment: Speci men Type: URINE SPECIMENOrdering Facility: [facility] Address: [address] [place] [address] Performed By: #### 2 4356-8 ####[facility] LABCLIA [id number] [place] [address] [place] Nitrite Ql (U) Negative Normal Negative [facility] Comment on above: Order Comment: Speci men Type: URINE SPECIMENOrdering Facility: [facility] Address: [address] [place] [address] Performed By: #### 2 4356-8 ####[facility] LABCLIA [id number] [place] [address] [place] pH (U) 7.5 [pH] Normal <8.5 [facility] Comment on above: Order Comment: Speci men Type: URINE SPECIMENOrdering Facility: [facility] Address: [address] [place] [address] Performed By: #### 2 4356-8 ####[facility] LABIA [id number] [place] [address] [place] Protein (U) [Mass/Vol] Negative Normal Negative [facility] Comment on above: Order Comment: Speci men Type: URINE SPECIMENOrdering Facility: [facility] Address: [address] [place] [address] Performed By: #### 2 4356-8 ####[facility] LABIA [id number] [place] [address] [place] RBC LM.HPF (Urine sed) [#/Area] 0-2 /HPF Normal 0-2 /HPF [facility] Comment on above: Order Comment: Speci men Type: URINE SPECIMENOrdering Facility: [facility] Address: [address] [place] [address] Performed By: #### 2 4356-8 ####[facility] LABIA [id number] [place] [address] [place] Specific gravity (U) [Rel density] 1.021 Normal 1.005-1.03 0 [facility] Comment on above: Order Comment: Speci men Type: URINE SPECIMENOrdering Facility: [facility] Address: [address] [place] [address] Performed By: #### 2 4356-8 ####[facility] LABIA [id number] [place] [address] [place] Urobilinogen Ql (U) 0.2 EU/dL Normal 0.2-1.0 EU/dL [facility] Comment on above: Order Comment: Speci men Type: URINE SPECIMENOrdering Facility: [facility] Address: [address] [place] [address] Performed By: #### 2 4356-8 ####[facility] [id number] [place] [address] [place] WBC LM.HPF (Urine sed) [#/Area] 0-5 /HPF Normal 0-5 /HPF [facility] Comment on above: Order Comment: Speci men Type: URINE SPECIMENOrdering Facility: [facility] Address: [address] [place] [address] Performed By: #### 2 4356-8 ####[facility] [id number] [place] [address] [place] XR CHEST 2V [...] thoracic spine. IMPRESSION: No acute radiographic abnormality. [place] [facility]: P[facility] Transcribe Date/Time: Apr 25 2024 2:18P Dictated by : ASHLEY MONTANO MD This examination was interpreted and the report reviewed and electronically signed by: ASHLEY MONTANO MD on Apr 25 2024 2:19PM EST [id number] Normal [facility] XR Chest PA and Lateralon IMPRESSION: No acute radiographic abnormality. [place]: OSMANI Transcribe Date/Time: Apr 25 2024 2:18P Dictated by : ASHLEY MONTANO MD This examination was interpreted and the report reviewed and electronically signed by: ASHLEY MONTANO MD on Apr 25 2024 2:19PM [facility] DIVISION OF RADIOLOGY * * *Final [...] the thoracic spine. DIVISION OF RADIOLOGY Provider, [facility] - 04/25/2024 * * *Final Report* * [...] spine. IMPRESSION IMPRESSION: No acute radiographic abnormality. [place]: [facility] Transcribe Date/Time: Apr 25 2024 2:18P Dictated by : ASHLEY MONTANO MD This examination was interpreted and the report reviewed and electronically signed by: ASHLEY MONTANO MD on Apr 25 2024 2:19PM EST [facility] Radiology Study observation (narrative) [facility] XR Chest PA and LateralOrder ed By: [facility] Provider on 04-25-2024 [facility] CNOVon 04-10-2024 CNOV Office Visit (FAMPWS ) LAZARO GARZON ([id number]) 1955 M Date Time Provider Department 04/10/24 11:40 AM ROJAS DOMINGUEZ FAMPWS During your visit today, we recorded the following information about you: Temperature Pulse Respiration Blood pressure 97.7 degrees 73/minute 18/minute 130/72 Weight 149.1 kg Rojas Dominguez MD 04/10/2024 12:17 PM Signed Chief Complaint Patient presents with: URI: X 1 week HPI Lazaro Trujillo Duran is a 68 year old male who [...] Right 1988 LAPS SURG CHOLECYSTECTOMY W/CHOLANGIOGRAPHY 2004 [facility] - Dr. 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 EPIGASTRIC HERNIA,REDUC 07/19/2023 umbilical TONSILLECTOMY PRIMARY/SECONDARY Tonsillectomy Family History FAMILY HISTORY Problem Relation Age of Onset Hypertension Mother Heart Mother Stroke Mother Allergies Mother Breast Cancer Mother Heart Father of MD Allergies Father Asthma Daughter Allergies Sister Allergies [...] Smokeless tob (more content not included)... [facility] LAZARO GARZON ([id number]) 1955 M Date Time Provider Department 03/13/24 9:00 AM JAGJIT CHEEMA During your visit [...] Lymph 1.00 - 4.00 k/uL 0.82 (L) [place]% % 7.5 Abs [place] <0.87 k/uL 0.31 Eosin% % 1.4 Abs [...] colonic polyp (more content not included)... Normal [facility] CBC W Auto Differential pane l (Bld)on 03-08-2024 Basophils (Bld) [#/Vol] [facility] Basophils/100 WBC (Bld) 0.2 % [facility] Differential cell count method Nom (Bld) Auto [facility] Eosinophils (Bld) [#/Vol] 0.06 10*3/uL [facility] Eosinophils/100 WBC (Bld) 1.4 % [facility] Erythrocyte distribution width (RBC) [Ratio] 13.4 % 11.5 - 15.0 % [facility] Hematocrit (Bld) [Volume fraction] 43.8 % 39.0 - 51.0 % [facility] Hemoglobin (Bld) [Mass/Vol] 14.7 g/dL 13.0 - 17.0 g/dL [facility] Immature granulocytes (Bld) [#/Vol] [facility] Immature granulocytes/100 WBC (Bld) 0.2 % [facility] Interpretation and review of laboratory results Abnormal [facility] Lymphocytes (Bld) [#/Vol] 0.82 10*3/uL Low [facility] Lymphocytes/100 WBC (Bld) 19.8 % [facility] MCH (RBC) [Entitic mass] 29.3 pg 26.0 - 34.0 pg [facility] MCHC (RBC) [Mass/Vol] 33.6 g/dL 30.5 - 36.0 g/dL [facility] MCV (RBC) [Entitic vol] 87.4 fL 80.0 - 100.0 fL [facility] Monocytes (Bld) [#/Vol] 0.31 10*3/uL [facility] Monocytes/100 WBC (Bld) 7.5 % [facility] Neutrophils (Bld) [#/Vol] 2.94 10*3/uL [facility] Neutrophils/100 WBC (Bld) 70.9 % [facility] Nucleated RBC (Bld) [#/Vol] NINF [facility] Nucleated RBC/100 WBC (Bld) [Ratio] 0.0 % /100 WBC [facility] Platelet mean volume (Bld) [Entitic vol] 11.7 fL 9.0 - 12.7 fL [facility] Platelets (Bld) [#/Vol] 154 10*3/uL [facility] RBC (Bld) [#/Vol] 5.01 10*6/uL 4.20 - 6.00 m/uL [facility] WBC (Bld) [#/Vol] 4.15 10*3/uL [facility] Basophils (Bld) [#/Vol] 10*3/uL Normal <0.11 [facility] Comment on above: Order Comment: Speci men Type: BLOOD SPECIMENOrdering Facility: [facility] Address: [address] [place] [address] Performed By: #### 5 7021-8 ####[facility] LABCLIA [id number] [place] [address] [place] Basophils/100 WBC (Bld) 0.2 % Normal [facility] Comment on above: Order Comment: Speci men Type: BLOOD SPECIMENOrdering Facility: [facility] Address: [address] [place] [address] Performed By: #### 5 7021-8 ####[facility] LABCLIA [id number] [place] [address] [place] Differential cell count method Nom (Bld) Auto Normal [facility] Comment on above: Order Comment: Speci men Type: BLOOD SPECIMENOrdering Facility: [facility] Address: [address] [place] [address] Performed By: #### 5 7021-8 ####[facility] LABCLIA [id number] [place] [address] [place] Eosinophils (Bld) [#/Vol] 0.06 10*3/uL Normal <0.46 [facility] Comment on above: Order Comment: Speci men Type: BLOOD SPECIMENOrdering Facility: [facility] Address: [address] [place] [address] Performed By: #### 5 7021-8 ####[facility] LABCLIA [id number] [place] [address] [place] Eosinophils/100 WBC (Bld) 1.4 % Normal [facility] Comment on above: Order Comment: Speci men Type: BLOOD SPECIMENOrdering Facility: [facility] Address: [address] [place] [address] Performed By: #### 5 7021-8 ####[facility] LABIA [id number] [place] [address] [place] Erythrocyte distribution width (RBC) [Ratio] 13.4 % Normal 11.5-15.0 [facility] Comment on above: Order Comment: Speci men Type: BLOOD SPECIMENOrdering Facility: [facility] Address: [address] [place] [address] Performed By: #### 5 7021-8 ####[facility] LABIA [id number] [place] [address] [place] Hematocrit (Bld) [Volume fraction] 43.8 % Normal 39.0-51.0 [facility] Comment on above: Order Comment: Speci men Type: BLOOD SPECIMENOrdering Facility: [facility] Address: [address] [place] [address] Performed By: #### 5 7021-8 ####[facility] LABIA [id number] [place] [address] [place] Hemoglobin (Bld) [Mass/Vol] 14.7 g/dL Normal 13.0-17.0 [facility] Comment on above: Order Comment: Speci men Type: BLOOD SPECIMENOrdering Facility: [facility] Address: [address] [place] [address] Performed By: #### 5 7021-8 ####[facility] LABCLIA [id number] [place] [address] [place] Immature granulocytes (Bld) [#/Vol] 10*3/uL Normal <0.10 [facility] Comment on above: Order Comment: Speci men Type: BLOOD SPECIMENOrdering Facility: [facility] Address: [address] [place] [address] Performed By: #### 5 7021-8 ####[facility] LABCLIA [id number] [place] [address] [place] Immature granulocytes/100 WBC (Bld) 0.2 % Normal [facility] Comment on above: Order Comment: Speci men Type: BLOOD SPECIMENOrdering Facility: [facility] Address: [address] [place] [address] Performed By: #### 5 7021-8 ####[facility] LABCLIA [id number] [place] [address] [place] Lymphocytes (Bld) [#/Vol] 0.82 10*3/uL Low 1.00-4.00 [facility] Comment on above: Order Comment: Speci men Type: BLOOD SPECIMENOrdering Facility: [facility] Address: [address] [place] [address] Performed By: #### 5 7021-8 ####[facility] LABCLIA [id number] [place] [address] [place] Lymphocytes/100 WBC (Bld) 19.8 % Normal [facility] Comment on above: Order Comment: Speci men Type: BLOOD SPECIMENOrdering Facility: [facility] Address: [address] [place] [address] Performed By: #### 5 7021-8 ####[facility] LABCLIA [id number] [place] [address] [place] MCH (RBC) [Entitic mass] 29.3 pg Normal 26.0-34.0 [facility] Comment on above: Order Comment: Speci men Type: BLOOD SPECIMENOrdering Facility: [facility] Address: [address] [place] [address] Performed By: #### 5 7021-8 ####[facility] LABCLIA [id number] [place] [address] [place] MCHC (RBC) [Mass/Vol] 33.6 g/dL Normal 30.5-36.0 [facility] Comment on above: Order Comment: Speci men Type: BLOOD SPECIMENOrdering Facility: [facility] Address: [address] [place] [address] Performed By: #### 5 7021-8 ####[facility] LABIA [id number] [place] [address] [place] MCV (RBC) [Entitic vol] 87.4 fL Normal 80.0-100.0 [facility] Comment on above: Order Comment: Speci men Type: BLOOD SPECIMENOrdering Facility: [facility] Address: [address] [place] [address] Performed By: #### 5 7021-8 ####[facility] LABIA [id number] [place] [address] [place] Monocytes (Bld) [#/Vol] 0.31 10*3/uL Normal <0.87 [facility] Comment on above: Order Comment: Speci men Type: BLOOD SPECIMENOrdering Facility: [facility] Address: [address] [place] [address] Performed By: #### 5 7021-8 ####[facility] LABIA [id number] [place] [address] [place] Monocytes/100 WBC (Bld) 7.5 % Normal [facility] Comment on above: Order Comment: Speci men Type: BLOOD SPECIMENOrdering Facility: [facility] Address: [address] [place] [address] Performed By: #### 5 7021-8 ####[facility] LABCLIA [id number] [place] [address] [place] Neutrophils (Bld) [#/Vol] 2.94 10*3/uL Normal 1.45-7.50 [facility] Comment on above: Order Comment: Speci men Type: BLOOD SPECIMENOrdering Facility: [facility] Address: [address] [place] [address] Performed By: #### 5 7021-8 ####[facility] LABCLIA [id number] [place] [address] [place] Neutrophils/100 WBC (Bld) 70.9 % Normal [facility] Comment on above: Order Comment: Speci men Type: BLOOD SPECIMENOrdering Facility: [facility] Address: [address] [place] [address] Performed By: #### 5 7021-8 ####[facility] LABCLIA [id number] [place] [address] [place] Nucleated RBC (Bld) [#/Vol] 10*3/uL Normal <0.01 [facility] Comment on above: Order Comment: Speci men Type: BLOOD SPECIMENOrdering Facility: [facility] Address: [address] [place] [address] Performed By: #### 5 7021-8 ####[facility] LABCLIA [id number] [place] [address] [place] Nucleated RBC/100 WBC (Bld) [Ratio] 0.0 /100 WBC Normal [facility] Comment on above: Order Comment: Speci men Type: BLOOD SPECIMENOrdering Facility: [facility] Address: [address] [place] [address] Performed By: #### 5 7021-8 ####[facility] LABCLIA [id number] [place] [address] [place] Platelet mean volume (Bld) [Entitic vol] 11.7 fL Normal 9.0-12.7 [facility] Comment on above: Order Comment: Speci men Type: BLOOD SPECIMENOrdering Facility: [facility] Address: [address] [place] [address] Performed By: #### 5 7021-8 ####[facility] LABIA [id number] [place] [address] [place] Platelets (Bld) [#/Vol] 154 10*3/uL Normal 150-400 [facility] Comment on above: Order Comment: Speci men Type: BLOOD SPECIMENOrdering Facility: [facility] Address: [address] [place] [address] Performed By: #### 5 7021-8 ####[facility] LABIA [id number] [place] [address] [place] RBC (Bld) [#/Vol] 5.01 10*6/uL Normal 4.20-6.00 [facility] Comment on above: Order Comment: Speci men Type: BLOOD SPECIMENOrdering Facility: [facility] Address: [address] [place] [address] Performed By: #### 5 7021-8 ####[facility] LABIA [id number] [place] [address] [place] WBC (Bld) [#/Vol] 4.15 10*3/uL Normal 3.70-11.00 [facility] Comment on above: Order Comment: Speci men Type: BLOOD SPECIMENOrdering Facility: [facility] Address: [address] [place] [address] Performed By: #### 5 7021-8 ####[facility] LABIA [id number] [place] [address] [place] CNOVon 03-08-2024 CNOV Office Visit (FAMPWS ) LAZARO GARZON ([id number]) 1955 M Date Time Provider Department 03/08/24 9:40 AM JAGJIT CHEEMA During your visit today, [...] Right 1988 LAPS SURG CHOLECYSTECTOMY W/CHOLANGIOGRAPHY 2004 [facility] - Dr. Bales OPEN REPAIR OF ROTATOR CUFF ACUTE Rotator cuff repair PERCUTANEOUS CORONARY INTERVENTION 2007 stent to LAD REPAIR EPIGASTRIC HERNIA,REDUC 07/19/2023 umbilical TONSILLECTOMY PRIMARY/SECONDARY Tonsillectomy FAMILY HISTORY Problem Relation Age of Onset Hypertension Mother Heart Mother Stroke Mother Allergies Mother Breast Cancer Mother Heart Father of MD Allergies Father Asthma Daughter Allergies Sister Allergies Brother Allergies Daughter Social History Tobacco Us (more content not included)... Normal [facility] CNPNon 03-08-2024 CNPN Telephone (FAMPWS) LAZARO GARZON ([id number]) 1955 Date Time Provider Department 03/08/24 JAGJIT CHEEMA [facility] During your visit today, we recorded the [...] Diagnosed: 02 (more content not included)... Normal [facility] CT ABD/PEL W IVCONon 024 CT ABD/PEL W IVCON * * *Final Report* * * DATE OF EXAM: Mar 08 2024 4:00PM [facility] 0530 - CT ABD/PEL W IVCON / [...] from 2019. No new lesions or hepatomegaly [place]: [facility] Transcribe Date/Time: Mar 08 2024 4:06P Dictated by : KHANH GERARD MD This examination was interpreted and the report reviewed and electronically signed by: KHANH GERARD MD on Mar 08 2024 4:12PM EST [id number] Normal [facility] CT Abdomen and Pelvis W cont [...] from 2019. No new lesions or hepatomegaly [place] [facility] [facility] Transcribe Date/Time: Mar 08 2024 4:06P Dictated by : KHANH GERARD MD This examination was interpreted and the report reviewed and electronically signed by: KHANH GERARD MD on Mar 08 2024 4:12PM EST [facility] * * *Final Report* * * DATE OF EXAM: Mar 08 2024 4:00PM [facility] 0530 - CT ABD/PEL W IVCON / [...] lower lumbar posterior decompression Lower thorax: Clear [facility] Provider[facility]24 * * *Final Report* * * DATE OF EXAM: Mar 08 2024 4:00PM [facility] 0530 - CT ABD/PEL W IVCON / [...] from 2019. No new lesions or hepatomegaly [place]: [facility] Transcribe Date/Time: Mar 08 2024 4:06P Dictated by : KHANH GERARD MD This examination was interpreted and the report reviewed and electronically signed by: KHANH GERARD MD on Mar 08 2024 4:12PM EST [facility] Radiology Study observation (narrative) [facility] CT Abdomen and Pelvis W cont rast IVOrdered By: Ccf Provider on 03-08-2024 [facility] Comprehensive metabolic 2000 panelon 03-08-2024 Albumin [Mass/Vol] 4.4 g/dL Normal 3.9-4.9 [facility] Comment on above: Order Comment: Speci men Type: BLOOD SPECIMENOrdering Facility: [facility] Address: [address] [place] [address] Performed By: #### 2 4323-8 ####[facility] LABCLIA [id number] [place] [address] [place] ALP [Catalytic activity/Vol] 78 U/L Normal 38-113 [facility] Comment on above: Order Comment: Speci men Type: BLOOD SPECIMENOrdering Facility: [facility] Address: [address] [place] [address] Performed By: #### 2 4323-8 ####[facility] LABCLIA [id number] [place] [address] [place] ALT [Catalytic activity/Vol] 31 U/L Normal 10-54 [facility] Comment on above: Order Comment: Speci men Type: BLOOD SPECIMENOrdering Facility: [facility] Address: [address] [place] [address] Performed By: #### 2 4323-8 ####[facility] LABCLIA [id number] [place] [id number] [place] Anion gap [Moles/Vol] 9 mmol/L Normal 8-15 [facility] Comment on above: Order Comment: Speci men Type: BLOOD SPECIMENOrdering Facility: [facility] Address: [address] [place] [address] Performed By: #### 2 4323-8 ####[facility] LABCLIA [id number] [place] [address] [place] AST [Catalytic activity/Vol] 23 U/L Normal 14-40 [facility] Comment on above: Order Comment: Speci men Type: BLOOD SPECIMENOrdering Facility: [facility] Address: [address] [place] [address] Performed By: #### 2 4323-8 ####[facility] LABCLIA [id number] [place] [address] [place] Bilirubin [Mass/Vol] 0.8 mg/dL Normal 0.2-1.3 [facility] Comment on above: Order Comment: Speci men Type: BLOOD SPECIMENOrdering Facility: [facility] Address: [address] [place] [address] Performed By: #### 2 4323-8 ####[facility] LABCLIA [id number] [place] [address] [place] Calcium [Mass/Vol] 9.3 mg/dL Normal 8.5-10.2 [facility] Comment on above: Order Comment: Speci men Type: BLOOD SPECIMENOrdering Facility: [facility] Address: [address] [place] [address] Performed By: #### 2 4323-8 ####[facility] LABCLIA [id number] [place] [address] [place] Chloride [Moles/Vol] 105 mmol/L Normal 98-107 [facility] Comment on above: Order Comment: Speci men Type: BLOOD SPECIMENOrdering Facility: [facility] Address: [address] [place] [address] Performed By: #### 2 4323-8 ####[facility] LABCLIA [id number] [place] [address] [place] CO2 [Moles/Vol] 26 mmol/L Normal 22-30 [facility] Comment on above: Order Comment: Speci men Type: BLOOD SPECIMENOrdering Facility: [facility] Address: [address] [place] [address] Performed By: #### 2 4323-8 ####[facility] LABCLIA [id number] [place] [address] [place] Creatinine [Mass/Vol] 0.97 mg/dL Normal 0.73-1.22 [facility] Comment on above: Order Comment: Speci men Type: BLOOD SPECIMENOrdering Facility: [facility] Address: [address] [place] [address] Performed By: #### 2 4323-8 ####[facility] LABIA [id number] [place] [address] [place] Creatinine and Glomerular filtration rate.predicted panel (S/P/Bld) 86 mL/min/1.73m??? Normal >=60 [facility] Comment on above: Order Comment: Speci men Type: BLOOD SPECIMENOrdering Facility: [facility] Address: [address] [place] [address] Result Comment: Jayshree mated Glomerular Filtration Rate [...] actual GFR. Performed By: #### 2 4323-8 ####[facility] LABCLIA [id number] [place] [address] [place] Glucose [Mass/Vol] 201 mg/dL High 74-99 [facility] Comment on above: Order Comment: Speci men Type: BLOOD SPECIMENOrdering Facility: [facility] Address: [address] [place] [address] Result Comment: The [place] Diabetes Association (ADA) provides guidance for cutoff [...] Standards of Medical Care in Diabetes 2016, [place] [employer]. Diabetes Care. 2016.39(Suppl 1). Performed By: #### 2 4323-8 ####[facility] LABCLIA [id number] [place] [id number] [place] Potassium [Moles/Vol] 3.5 mmol/L Low 3.7-5.1 [facility] Comment on above: Order Comment: Speci men Type: BLOOD SPECIMENOrdering Facility: [facility] Address: [address] [place] [address] Performed By: #### 2 4323-8 ####[facility] LABCLIA [id number] [address] [address] [place] Protein [Mass/Vol] 7.3 g/dL Normal 6.3-8.0 [facility] Comment on above: Order Comment: Speci men Type: BLOOD SPECIMENOrdering Facility: [facility] Address: [address] [place] [address] Performed By: #### 2 4323-8 ####[facility] LABIA [id number] [place] [id number] [place] Sodium [Moles/Vol] 140 mmol/L Normal 136-144 [facility] Comment on above: Order Comment: Speci men Type: BLOOD SPECIMENOrdering Facility: [facility] Address: [address] [place] [address] Performed By: #### 2 4323-8 ####[facility] LABIA [id number] [place] [address] [place] Urea nitrogen [Mass/Vol] 14 mg/dL Normal 9-24 [facility] Comment on above: Order Comment: Speci men Type: BLOOD SPECIMENOrdering Facility: [facility] Address: [address] [place] [address] Performed By: #### 2 4323-8 ####[facility] [id number] [place] [address] [place] Thoracic Spine 3 Viewson Thoracic Spine 3 Views [facility] Radiology [address] [place] [address] Thoracic Spine 3 Views MR#: [id number] Acct: [id number] Name: LAZARO GARZON Rep #: [id number] : 1955 M 68 From: [place] Quijano MD PCP: Dr. Jagjit Cheema MD Status: DEP AMB Study: Thoracic Spine 3 Views Date of Exam: 01/15/24 Exam# [id number] Ordering Dr: Asuncion Bardales :[id number] INDICATION: PAIN EXAMINATION/TECHNIQUE: X-RAY - XR Spine [...] CC: Asuncion Bardales; Dr. Jagjit Cheema MD [place]: Signed Normal [facility] CBC W Auto Differential pane l (Bld)on 12-13-2023 Basophils (Bld) [#/Vol] 0.04 10*3/uL [facility] Basophils/100 WBC (Bld) 0.6 % [facility] Differential cell count method Nom (Bld) Auto [facility] Eosinophils (Bld) [#/Vol] 0.08 10*3/uL [facility] Eosinophils/100 WBC (Bld) 1.1 % [facility] Erythrocyte distribution width (RBC) [Ratio] 13.1 % 11.5 - 15.0 % [facility] Hematocrit (Bld) [Volume fraction] 47.9 % 39.0 - 51.0 % [facility] Hemoglobin (Bld) [Mass/Vol] 16.7 g/dL 13.0 - 17.0 g/dL [facility] Immature granulocytes (Bld) [#/Vol] [facility] Immature granulocytes/100 WBC (Bld) 0.3 % [facility] Lymphocytes (Bld) [#/Vol] 1.21 10*3/uL [facility] Lymphocytes/100 WBC (Bld) 16.8 % [facility] MCH (RBC) [Entitic mass] 29.6 pg 26.0 - 34.0 pg [facility] MCHC (RBC) [Mass/Vol] 34.9 g/dL 30.5 - 36.0 g/dL [facility] MCV (RBC) [Entitic vol] 84.9 fL 80.0 - 100.0 fL [facility] Monocytes (Bld) [#/Vol] 0.71 10*3/uL NINF [facility] Monocytes/100 WBC (Bld) 9.8 % [facility] Neutrophils (Bld) [#/Vol] 5.15 10*3/uL [facility] Neutrophils/100 WBC (Bld) 71.4 % [facility] Nucleated RBC (Bld) [#/Vol] NINF [facility] Nucleated RBC/100 WBC (Bld) [Ratio] 0.0 % /100 WBC [facility] Platelet mean volume (Bld) [Entitic vol] 11.2 fL 9.0 - 12.7 fL [facility] Platelets (Bld) [#/Vol] 168 10*3/uL [facility] RBC (Bld) [#/Vol] 5.64 10*6/uL 4.20 - 6.00 m/uL [facility] WBC (Bld) [#/Vol] 7.21 10*3/uL [facility] Comprehensive metabolic 2000 panelOrdered By: Elizabeth Malone on 12-13-2023 Albumin [Mass/Vol] 4.7 g/dL 3.9 - 4.9 g/dL [facility] ALP [Catalytic activity/Vol] 90 U/L 38 - 113 U/L [facility] ALT [Catalytic activity/Vol] 31 U/L 10 - 54 U/L [facility] Anion gap [Moles/Vol] 12 mmol/L 8 - 15 mmol/L [facility] AST [Catalytic activity/Vol] 21 U/L 14 - 40 U/L [facility] Bilirubin [Mass/Vol] 0.8 mg/dL 0.2 - 1 .3 mg/dL [facility] Calcium [Mass/Vol] 9.3 mg/dL 8.5 - 10. 2 mg/dL [facility] Chloride [Moles/Vol] 105 mmol/L 98 - 10 7 mmol/L [facility] CO2 [Moles/Vol] 23 mmol/L 22 - 30 mmol/L [facility] Creatinine [Mass/Vol] 0.88 mg/dL 0.73 - 1.22 mg/dL [facility] GFR/1.73 sq M.predicted among non-blacks MDRD (S/P/Bld) [Vol rate/Area] 95 mL/min/{1.73_m2} - PINF [facility] Comment on above: Estimated Glomerular Filtration [...] [Mass/Vol] 79 mg/dL 74 - 99 mg/dL [facility] Comment on above: The [place] Diabete s Association (ADA) provides guidance for [...] Standards of Medical Care in Diabetes 2016, [place] [employer]. Diabetes Care. 2016.39(Suppl 1). Interpretation and review of laboratory results Abnormal [facility] Potassium [Moles/Vol] 3.5 mmol/L Low 3.7 - 5.1 mmol/L [facility] Protein [Mass/Vol] 7.9 g/dL 6.3 - 8.0 g/dL [facility] Sodium [Moles/Vol] 140 mmol/L 136 - 144 mmol/L [facility] Urea nitrogen [Mass/Vol] 18 mg/dL 9 - 24 mg/dL [facility] Basophil percentageOrdered B y: Flores Glover on 10-18-2023 Bilirubin [Mass/Vol] 1.00 mg/dL 0.20-1.00 [facility] Comment on above: For patients on eltr ombopag therapy, use of Dimension [place] TBIL is not recommended. Chloride [Moles/Vol] 110 mmol/L 98-107 [facility] Cholesterol [Mass/Vol] 75 mg/dL <200 [facility] Comment on above: <200 mg/dL Desirable 200-240 mg/dL Borderline >240 mg/dL High Risk Glucose [Mass/Vol] 119 mg/dL 74-106 [facility] Comment on above: Fasting Glucose resu lt from 100 to 125 mg/dL suggests IMPAIRED HOMEOSTASIS per A.D.A. criteria. Hemoglobin (Bld) [Mass/Vol] 15.3 g/dL 13.0-16.5 [facility] Potassium [Moles/Vol] 3.6 mmol/L 3.5-5.1 [facility] Protein [Mass/Vol] 7.2 g/dL 6.4-8.2 [facility] Sodium [Moles/Vol] 141 mmol/L 136-145 [facility] Triglyceride [Mass/Vol] 147 mg/dL <199 [facility] Comment on above: The drugs N-Acetylcy steine and Metamizole may falsely depress this assay.Serum Triglycerides Reference Interval Normal <150 mg/dL Borderline high 150 - 199 mg/dL High 200 - 499 mg/dL Very High > or = 500 mg/dL WBC (Bld) [#/Vol] 4.6 10*3/uL 4.4-11.0 [facility] Determination of erythrocyte mean corpuscular volume (MCV)Ordered By: Flores Glover on 10-18-2023 MCV (RBC) [Entitic vol] 86.7 fL 80-94 [facility] Erythrocyte distribution wid th ratioOrdered By: Flores Glover on 10-18-2023 Erythrocyte distribution width (RBC) [Ratio] 14.0 % 11.6-14.6 [facility] Erythrocyte distribution wid th standard deviationOrdered By: Flores Glover on 10-18-2023 Erythrocyte distribution width (RBC) [Entitic vol] 44.5 fL 35.1-43.9 [facility] Hematocrit Auto (Bld) [Volum e fraction]Ordered By: Flores Glover on 10-18-2023 Hematocrit (Bld) [Volume fraction] 44.4 % 40-54 [facility] Laboratory - Chemistry and C hemistry - challengeOrdered By: Flores Glover on 10-18-2023 Albumin/Globulin [Mass ratio] 1.2 {ratio} 0.9-2.4 [facility] ALP [Catalytic activity/Vol] 78 U/L 45-117 [facility] ALT [Catalytic activity/Vol] 33 U/L 16-61 [facility] Cholesterol in HDL [Mass/Vol] 28 mg/dL >40 [facility] Comment on above: The drugs N-Acetylcy steine and Metamizole may falsely depress this assay. Reference Range HDL <40 mg/dL Low HDL Cholesterol HDL >or= 60 mg/dL High HDL Cholesterol Cholesterol in LDL [Mass/Vol] 18 mg/dL 0-130 [facility] CO2 [Moles/Vol] 26.0 mmol/L 21.0-32.0 [facility] Globulin (S) [Mass/Vol] 3.2 g/dL 2.2-4.2 [facility] Magnesium [Mass/Vol] 1.9 mg/dL 1.6-2.6 [facility] Urea nitrogen/Creatinine [Mass ratio] 15.8 mg/mg 10-20 [facility] Laboratory - Hematology and Cell countsOrdered By: Flores Glover on 10-18-2023 MCH (RBC) [Entitic mass] 29.9 pg 27.0-32.0 [facility] MCHC (RBC) [Mass/Vol] 34.5 g/dL 32-36 [facility] Platelet mean volume (Bld) [Entitic vol] 11.6 fL 6.2-12.0 [facility] Platelets (Bld) [#/Vol] 130 10*3/uL 150-450 [facility] No Panel InformationOrdered By: Flores Glover on 10-18-2023 Estimated GFR (MDRD) Amer 102 mL/min >60 [facility] Comment on above: GFR Calc Estimated GFR (MDRD) Non-Af Amer 84 mL/min >60 [facility] Comment on above: Non- GFR Calc VLDL Cholesterol 29 mg/dL 5-40 [facility] RBC Auto (Bld) [#/Vol]Ordere d By: Flores Glover on 10-18-2023 RBC (Bld) [#/Vol] 5.12 10*6/uL 4.6-6.2 [facility] Serum or plasma calcium peterson urement (mass/volume)Ordered By: Flores Glover on 10-18-2023 Calcium [Mass/Vol] 8.7 mg/dL 8.5-10.1 [facility] Serum or plasma creatinine m easurement (mass/volume)Ordered By: Flores Glover on 10-18-2023 Creatinine [Mass/Vol] 0.95 mg/dL 0.70-1.30 [facility] Comment on above: The validity of the calculated GFR & GFRAA in patients over 70 years has not been determined. Clinical correlation is essential. Serum or plasma urea nitroge n measurement (mass/volume)Ordered By: Floresduncan Glover on 10-18-2023 Urea nitrogen [Mass/Vol] 15 mg/dL 7-18 [facility] Thin prep Papanicolaou smear with manual screeningOrdered By: Flores Adalberto on 10-18-2023 Thin prep Papanicolaou smear with manual screening 4.0 g/dL 3.2-5.0 [facility] Thin prep Papanicolaou smear with manual screening 19 U/L 15-37 [facility] Thin prep Papanicolaou smear with manual screening 5 5-15 [facility] ANES POSTPROC EVALon 024 ANES POSTPROC EVAL HNO ID: [id number] Author: VEE LOVING MD Service: Anesthesiology Author Type: Anesthesiologist Type: Anesthesia Postprocedure Evaluation Filed: 07/19/2023 10:38 Note Text: POST ANESTHESIA EVALUATION NOTE : 1955 Procedure Summary Date: 07/19/23 Room / Location: [place] [address] / [place] Anesthesia Start: 900 Anesthesia Stop: 100 [...] July 19, 2023 TIME: 10:38 AM CSN: [id number] [facility] ANES PRE-OPon 07-19-2023 ANES PRE-OP HNO ID: [id number] Author: VEE LOVING MD Service: Anesthesiology Author Type: Anesthesiologist Type: Anesthesia Preprocedure Evaluation Filed: 07/19/2023 08:12 Note Text: ANESTHESIOLOGY DAY OF SURGERY NOTE : 1955 Procedure Information Date/Time: 07/19/23855 Procedure: HERNIORRHAPHY UMBILICAL REDUCIBLE 3cm-10cm (Abdomen) Location: [place] Surgeons: Robby Bales MD Estimated body [...] and consent discussed: yes. Patient / Responsible [employer] agrees to proceed: yes Patient / [...] none. Vitals Value Taken Time BP 166/78 07/19/23 0746 Pulse 58 07/19/23 0746 Resp 18 07/19/23 0746 Temp 36.2 ?C (97.2 ?F) 07/19/23 0746 SpO2 98 % 07/19/23 0746 Facility-Administered Medications as of 07/19/2023 Medication Dose [...] July 19, 2023 TIME: 8:11 AM CSN: [id number] Normal [facility] HISTORY PHYSICALon HISTORY PHYSICAL HNO ID: [id number] Author: ROBBY BALES MD Service: General Surgery [...] Right 1988 LAPS SURG CHOLECYSTECTOMY W/CHOLANGIOGRAPHY 2004 [facility] - Dr. Bales OPEN REPAIR OF ROTATOR CUFF ACUTE Rotator cuff repair PERCUTANEOUS CORONARY INTERVENTION 2006 stent to LAD TONSILLECTOMY PRIMARY/SECONDARY Tonsillectomy CURRENT [...] Mother Breast Cancer Mother Heart Father of MD Allergies Father Asthma Daughter Allergies Sister Allergies Brother Allergies Daughter REVIEW OF SYMPTOMS: The review of systems data was entered by the nurse and reviewed by me Nursing Notes: (more content not included)... [facility] OPERATIVE NOon 07-19-2023 OPERATIVE NO HNO ID: [id number] Author: ROBBY BALES MD Service: General Surgery Author Type: Physician Type: Operative Report Filed: 07/19/2023 10:07 Note Text: OPERATIVE/PROCEDURE REPORT LOG ID: [id number] SURGERY/PROCEDURE DATE: 07/19/2023 INCISION/PROCEDURE START TIME: 9:18 AM INCISION CLOSE/PROCEDURE END TIME: 9:55 AM SURGEON(S)/PROCEDURALIST(S) AND AREA MANAGER(S): Surgeon(s) and Role: * Robby Bales MD - Primary Physician Dress Marker: Anna Mccoy PA-C SURGERY/PROCEDURE(S): Umbilical hernia repair [...] procedure well. Anna Mccoy PA-C was my administrative assistant office manager. She assisted with retraction, visualization and performed skin closure. No additional surgeons or qualified residents were available. PRE-OP/PRE-PROCEDURE DIAGNOSIS: Umbilical hernia POST-OP/POST-PROCEDURE DIAGNOSIS: Same as Preop ESTIMATED BLOOD LOSS: < 25 mls SPECIMENS: None IMPLANTABLE DEVICES: Implant Name Type Inv. Item Serial No. [employer] Hcm Developer Lot No. LRB No. Used Action MESH PARIETEX 6.6CM SMALL COLLAGEN SURGICAL PATCH SELF CENTER COMPOSITE - [id number] Mesh MESH PARIETEX 6.6CM SMALL COLLAGEN SURGICAL PATCH SELF CENTER COMPOSITE [employer] [id number] N/A 1 Implanted DRAINS: None COMPLICATIONS: None CLOSURE TECHNIQUE: Primary PARTICIPATION IN SURGERY/PROCEDURE: I/primary surgeon/proceduralist performed the procedure with assistance. SIGNATURE: Robby Bales III, MD PATIENT NAME: Lazaro Garzon DATE: July 19, 2023 TIME: 9:48 AM [facility] Absolute lymphocyte countOrd ered By: Flores Adalberto on 07-13-2023 Lymphocytes Auto (Unsp spec) [#/Vol] 0.84 10*3/uL 0.83-4.51 [facility] Automated lymphocyte count a s percentage of total leukocytesOrdered By: [facility] on 07-13-2023 Lymphocytes/100 WBC Auto (Unsp spec) 23.8 % 19-41 [facility] Basophil percentageOrdered B y: [facility] on 07-13-2023 Basophils/100 WBC (Bld) 0.6 % 0-1 [facility] Eosinophils/100 WBC (Bld) 1.7 % 0-5 [facility] Hemoglobin (Bld) [Mass/Vol] 15.5 g/dL 13.0-16.5 [facility] Monocytes/100 WBC (Bld) 11.0 % 0-10 [facility] Neutrophils (Bld) [#/Vol] 2.2 10*3/uL 2.0-7.7 [facility] Neutrophils/100 WBC (Bld) 62.9 % 47-70 [facility] WBC (Bld) [#/Vol] 3.5 10*3/uL 4.4-11.0 [facility] Bilirubin [Mass/Vol] 1.10 mg/dL 0.20-1.00 [facility] Comment on above: For patients on eltr ombopag therapy, use of Dimension [place] TBIL is not recommended. Chloride [Moles/Vol] 108 mmol/L 98-107 [facility] Cholesterol [Mass/Vol] 77 mg/dL <200 [facility] Comment on above: <200 mg/dL Desirable 200-240 mg/dL Borderline >240 mg/dL High Risk Glucose [Mass/Vol] 116 mg/dL 74-106 [facility] Comment on above: Fasting Glucose resu lt from 100 to 125 mg/dL suggests IMPAIRED HOMEOSTASIS per A.D.A. criteria. Potassium [Moles/Vol] 4.0 mmol/L 3.5-5.1 [facility] Protein [Mass/Vol] 7.9 g/dL 6.4-8.2 [facility] Sodium [Moles/Vol] 137 mmol/L 136-145 [facility] Triglyceride [Mass/Vol] 90 mg/dL <199 [facility] Comment on above: The drugs N-Acetylcy steine and Metamizole may falsely depress this assay.Serum Triglycerides Reference Interval Normal <150 mg/dL Borderline high 150 - 199 mg/dL High 200 - 499 mg/dL Very High > or = 500 mg/dL Determination of erythrocyte mean corpuscular volume (MCV)Ordered By: Flores Glover on 07-13-2023 MCV (RBC) [Entitic vol] 86.6 fL 80-94 [facility] Direct bilirubinOrdered By: Flores Glover on 07-13-2023 Bilirubin.direct [Mass/Vol] 0.33 mg/dL 0.00-0.30 [facility] Erythrocyte distribution wid th ratioOrdered By: Flores Glover on 07-13-2023 Erythrocyte distribution width (RBC) [Ratio] 13.0 % 11.6-14.6 [facility] Erythrocyte distribution wid th standard deviationOrdered By: Flores Glover on 07-13-2023 Erythrocyte distribution width (RBC) [Entitic vol] 40.1 fL 35.1-43.9 [facility] Hematocrit Auto (Bld) [Volum e fraction]Ordered By: Flores Glover on 07-13-2023 Hematocrit (Bld) [Volume fraction] 46.0 % 40-54 [facility] High density lipoprotein (HD L) measurementOrdered By: Flores Glover on 07-13-2023 Cholesterol in HDL (Body fld) [Mass/Vol] 30 mg/dL >40 [facility] Comment on above: The drugs N-Acetylcy steine and Metamizole may falsely depress this assay. Reference Range HDL <40 mg/dL Low HDL Cholesterol HDL >or= 60 mg/dL High HDL Cholesterol Immature granulocytes/100 WB C Auto (Bld)Ordered By: Flores Glover on 07-13-2023 Immature granulocytes/100 WBC (Bld) 0.000 % 0.0-0.9 [facility] Comment on above: IG% - Immature Granu locytes (promyelocytes, myelocytes and metamyelocytes) > 1% indicates that a LEFT SHIFT is Present. Laboratory - Chemistry and C hemistry - challengeOrdered By: Flores Glover on 07-13-2023 Albumin/Globulin [Mass ratio] 1.2 {ratio} 0.9-2.4 [facility] ALP [Catalytic activity/Vol] 76 U/L 45-117 [facility] ALT [Catalytic activity/Vol] 59 U/L 16-61 [facility] CO2 [Moles/Vol] 28.0 mmol/L 21.0-32.0 [facility] Globulin (S) [Mass/Vol] 3.6 g/dL 2.2-4.2 [facility] Urea nitrogen/Creatinine [Mass ratio] 15.3 mg/mg 10-20 [facility] Laboratory - Hematology and Cell countsOrdered By: Flores Glover on 07-13-2023 MCH (RBC) [Entitic mass] 29.2 pg 27.0-32.0 [facility] MCHC (RBC) [Mass/Vol] 33.7 g/dL 32-36 [facility] Nucleated RBC/100 WBC (Bld) [Ratio] 0 % 0-5 [facility] Platelets (Bld) [#/Vol] 164 10*3/uL 150-450 [facility] Low density lipoprotein (LDL ) cholesterol measurementOrdered By: Flores Glover on 07-13-2023 Cholesterol in LDL (Body fld) [Moles/Vol] 29 mg/dL 0-130 [facility] No Panel InformationOrdered By: Flores Glover on 07-13-2023 Estimated GFR (MDRD) Amer 80 mL/min >60 [facility] Comment on above: GFR Calc Estimated GFR (MDRD) Non-Af Amer 66 mL/min >60 [facility] Comment on above: Non- GFR Calc Platelet mean volume Stephen-Ec ker (Bld) [Entitic vol]Ordered By: Flores Glover on 07-13-2023 Platelet mean volume (Bld) [Entitic vol] 10.8 fL 6.2-12.0 [facility] RBC Auto (Bld) [#/Vol]Ordere d By: Flores Glover on 07-13-2023 RBC (Bld) [#/Vol] 5.31 10*6/uL 4.6-6.2 [facility] [place] or plasma calcium peterson urement (mass/volume)Ordered By: Flores Glover on 07-13-2023 Calcium [Mass/Vol] 9.5 mg/dL 8.5-10.1 [facility] Serum or plasma creatinine m easurement (mass/volume)Ordered By: Flores Glover on 07-13-2023 Creatinine [Mass/Vol] 1.18 mg/dL 0.70-1.30 [facility] [facility] Comment on above: The validity of the calculated GFR & GFRAA in patients over 70 years has not been determined. Clinical correlation is essential. Serum or plasma urea nitroge n measurement (mass/volume)Ordered By: Flores Glover on 07-13-2023 Urea nitrogen [Mass/Vol] 18 mg/dL 7-18 [facility] Thin prep Papanicolaou smear with manual screeningOrdered By: Flores Glover on 07-13-2023 Thin prep Papanicolaou smear with manual screening 4.3 g/dL 3.2-5.0 [facility] Thin prep Papanicolaou smear with manual screening 32 U/L 15-37 [facility] Thin prep Papanicolaou smear with manual screening 1 5-15 [facility] Very low density lipoprotein (VLDL) cholesterol measurementOrdered By: Flores Glover on 07-13-2023 Cholesterol in VLDL Calc [Moles/Vol] 18 mg/dL 5-40 [facility] Basophil percentageOrdered B y: Gamal Ramos on 04-25-2023 Testosterone [Mass/Vol] 366.38 ng/dL [facility] Comment on above: CENTRAL 90% REFERENC E RANGES MALE AGE <50 197.44 - 669.58 ng/dL MALE AGE > or = 50 187.72 - 684.19 ng/dL FEMALE AGE <50 8.38 - 35.01 ng/dL FEMALE AGE > or = 50 <7.00 - 35.92 ng/dL Effective as of 01/12/21 No Panel InformationOrdered By: Gamal Ramos on 04-25-2023 Prostate Specific Antigen Screen 3.94 ng/mL 0.00-4.00 [facility] Comment on above: This test was perfor med using the TPSA assay method for the[employer] chemistry system. Values obtained with differentassay methods cannot be used interchangably.When changing PSA assays in the course of monitoring apatient, additional sequential testing should be carriedout to confirm baseline values. XR Foot - left AP and Latera l and obliqueon 04-03-2023 IMPRESSION: No radiographic evidence of acute osseous injury [employer]: OSMANI Transcribe Date/Time: Apr 03 2023 11:18A Dictated by : JERE DUNHAM MD This examination was interpreted and the report reviewed and electronically signed by: JERE DUNHAM MD on Apr 03 2023 11:19AM [facility] DIVISION OF RADIOLOGY * * *Final [...] the interphalangeal joints. DIVISION OF RADIOLOGY Provider, [facility]umar [facility] - 04/03/2023 * * *Final Report* * [...] No radiographic evidence of acute osseous injury [employer]: PSC Transcribe Date/Time: Apr 03 2023 11:18A Dictated by : JERE DUNHAM MD This examination was interpreted and the report reviewed and electronically signed by: JERE DUNHAM MD on Apr 03 2023 11:19AM EST [facility] Radiology Study observation (narrative) [facility] XR Foot - left AP and Latera l and obliqueOrdered By: Ccf Provider on 04-03-2023 [facility] CBC W Auto Differential pane l (Bld)on 12-20-2022 Basophils (Bld) [#/Vol] 0.03 10*3/uL <0.11 k/uL [facility] Basophils/100 WBC (Bld) 0.6 % [facility] Differential cell count method Nom (Bld) Auto [facility] Eosinophils (Bld) [#/Vol] 0.10 10*3/uL <0.46 k/uL [facility] Eosinophils/100 WBC (Bld) 1.9 % [facility] Erythrocyte distribution width (RBC) [Ratio] 13.0 % 11.5 - 15.0 % [facility] Hematocrit (Bld) [Volume fraction] 40.3 % 39.0 - 51.0 % [facility] Hemoglobin (Bld) [Mass/Vol] 13.4 g/dL 13.0 - 17.0 g/dL [facility] Immature granulocytes (Bld) [#/Vol] <0.10 k/uL [facility] Immature granulocytes/100 WBC (Bld) 0.4 % [facility] Lymphocytes (Bld) [#/Vol] 1.01 10*3/uL 1.00 - 4.00 k/uL [facility] Lymphocytes/100 WBC (Bld) 19.6 % [facility] MCH (RBC) [Entitic mass] 29.6 pg 26.0 - 34.0 pg [facility] MCHC (RBC) [Mass/Vol] 33.3 g/dL 30.5 - 36.0 g/dL [facility] MCV (RBC) [Entitic vol] 89.2 fL 80.0 - 100.0 fL [facility] Monocytes (Bld) [#/Vol] 0.45 10*3/uL <0.87 k/uL [facility] Monocytes/100 WBC (Bld) 8.8 % [facility] Neutrophils (Bld) [#/Vol] 3.53 10*3/uL 1.45 - 7.50 k/uL [facility] Neutrophils/100 WBC (Bld) 68.7 % [facility] Nucleated RBC (Bld) [#/Vol] <0.01 k/uL [facility] Nucleated RBC/100 WBC (Bld) [Ratio] 0.0 /100 WBC [facility] Platelet mean volume (Bld) [Entitic vol] 12.2 fL 9.0 - 12.7 fL [facility] Platelets (Bld) [#/Vol] 156 10*3/uL 150 - 400 k/uL [facility] RBC (Bld) [#/Vol] 4.52 10*6/uL 4.20 - 6.00 m/uL [facility] WBC (Bld) [#/Vol] 5.14 10*3/uL 3.70 - 11.00 k/uL [facility] Absolute lymphocyte countOrd ered By: Lucy Partida on 12-16-2022 Lymphocytes Auto (Unsp spec) [#/Vol] 0.25 10*3/uL 0.83-4.51 [facility] Acetaminophen level (mass/vo lume)Ordered By: Lucy Helga on 12-16-2022 Acetaminophen (Unsp spec) [Mass/Vol] 2.3 ug/mL 10.0-30.0 [facility] Basophil percentageOrdered B y: Lucy Partida on 12-16-2022 Basophils/100 WBC (Bld) 0.2 % 0-1 [facility] Bilirubin [Mass/Vol] 1.20 mg/dL 0.20-1.00 [facility] Comment on above: For patients on eltr ombopag therapy, use of Dimension [place] TBIL is not recommended. Chloride [Moles/Vol] 108 mmol/L 98-107 [facility] Eosinophils/100 WBC (Bld) 0.2 % 0-5 [facility] Glucose [Mass/Vol] 130 mg/dL 74-106 [facility] Comment on above: Fasting Glucose resu lt greater than or equal to 126 mg/dL suggests DIABETES MELLITUS per A.D.A. criteria. Neutrophils (Bld) [#/Vol] 3.5 10*3/uL 2.0-7.7 [facility] Neutrophils/100 WBC (Bld) 82.1 % 47-70 [facility] Potassium [Moles/Vol] 3.3 mmol/L 3.5-5.1 [facility] Protein [Mass/Vol] 6.1 g/dL 6.4-8.2 [facility] Sodium [Moles/Vol] 137 mmol/L 136-145 [facility] WBC (Bld) [#/Vol] 4.2 10*3/uL 4.4-11.0 [facility] Blood erythrocytes count (nu mber/volume)Ordered By: Lucy Partida on 12-16-2022 RBC (Bld) [#/Vol] 4.29 10*6/uL 4.6-6.2 [facility] Blood hemoglobin measurement (mass/volume)Ordered By: Lucy Partida on 12-16-2022 Hemoglobin (Bld) [Mass/Vol] 13.1 g/dL 13.0-16.5 [facility] Blood lymphocytes/100 leukoc ytesOrdered By: Lucy Partida on 12-16-2022 Lymphocytes/100 WBC (Bld) 5.9 % 19-41 [facility] Blood manual differential co mment interpretation (narrative result)Ordered By: Lucy Partida on 12-16-2022 Manual differential comment Ildefonso (Bld) [Interp] SCANNED [facility] Comment on above: LYMPHOPENIA Blood monocytes/100 leukocyt esOrdered By: Lucy Partida on 12-16-2022 Monocytes/100 WBC (Bld) 11.1 % 0-10 [facility] Blood platelet adequacy dete ction by light microscopyOrdered By: Lucy Partida on 12-16-2022 Platelets LM Ql (Bld) SLT DEC ADEQ [facility] Blood platelet mean volumeOr dered By: Lucy Partida on 12-16-2022 Platelet mean volume (Bld) [Entitic vol] 11.5 fL 6.2-12.0 [facility] Determination of erythrocyte mean corpuscular volume (MCV)Ordered By: Lucy Partida on 12-16-2022 MCV (RBC) [Entitic vol] 88.3 fL 80-94 [facility] Hematocrit Auto (Bld) [Volum e fraction]Ordered By: Lucy Partida on 12-16-2022 Hematocrit (Bld) [Volume fraction] 37.9 % 40-54 [facility] Laboratory - Chemistry and C hemistry - challengeOrdered By: Lucy Partida on 12-16-2022 ALP [Catalytic activity/Vol] 59 U/L 45-117 [facility] ALT [Catalytic activity/Vol] 41 U/L 16-61 [facility] CO2 [Moles/Vol] 22.0 mmol/L 21.0-32.0 [facility] Globulin (S) [Mass/Vol] 3.3 g/dL 2.2-4.2 [facility] Urea nitrogen/Creatinine [Mass ratio] 12.7 mg/mg 10-20 [facility] Laboratory - Hematology and Cell countsOrdered By: Lucy Partida on 12-16-2022 Erythrocyte distribution width (RBC) [Entitic vol] 42.5 fL 35.1-43.9 [facility] Erythrocyte distribution width (RBC) [Ratio] 13.2 % 11.6-14.6 [facility] Immature granulocytes/100 WBC (Bld) 0.500 % 0.0-0.9 [facility] Comment on above: IG% - Immature Granu locytes (promyelocytes, myelocytes and metamyelocytes) > 1% indicates that a LEFT SHIFT is Present. MCH (RBC) [Entitic mass] 30.5 pg 27.0-32.0 [facility] Nucleated RBC/100 WBC (Bld) [Ratio] 0 % 0-5 [facility] MCHC Auto (RBC) [Mass/Vol]Or dered By: Lucy Partida on 12-16-2022 MCHC (RBC) [Mass/Vol] 34.6 g/dL 32-36 [facility] No Panel InformationOrdered By: Lucy Partida on 12-16-2022 Estimated Creatinine Clearance Calc 84.38 ml/min [facility] Estimated GFR (MDRD) Amer 86 mL/min >60 [facility] Comment on above: GFR Calc Estimated GFR (MDRD) Non-Af Amer 71 mL/min >60 [facility] Comment on above: Non- GFR Calc Platelets bldOrdered By: Michael Partida on 12-16-2022 Platelets (Bld) [#/Vol] 92 10*3/uL 150-450 [facility] Review by pathologistOrdered By: Lucy Partida on 12-16-2022 Pathologist review Ildefonso (Unsp spec) [Interp] Reviewed [facility] Comment on above: Previous reported re sult: October verona Edited by: RGOCHRISTIANO on 12/16/22:1022Mild Thrombocytopenia.Clinical correlation necessary.Jameson Oden M.D. 12/16/22 AMENDED REPORT 12/16/22 1022 PATH REV previously reported as: October ver[place] Serum or plasma albumin peterson urement (mass/volume)Ordered By: Lucy Partida on 12-16-2022 Albumin [Mass/Vol] 2.8 g/dL 3.2-5.0 [facility] Serum or plasma albumin/glob ulin mass ratioOrdered By: Lucy Partida on 12-16-2022 Albumin/Globulin [Mass ratio] 0.8 {ratio} 0.9-2.4 [facility] Serum or plasma calcium peterson urement (mass/volume)Ordered By: Lucy Partida on 12-16-2022 Calcium [Mass/Vol] 7.8 mg/dL 8.5-10.1 [facility] Serum or plasma creatinine m easurement (mass/volume)Ordered By: Lucy Partida on 12-16-2022 Creatinine [Mass/Vol] 1.10 mg/dL 0.70-1.30 [facility] Comment on above: The validity of the calculated GFR & GFRAA in patients over 70 years has not been determined. Clinical correlation is essential. Serum or plasma urea nitroge n measurement (mass/volume)Ordered By: Lucy Partida on 12-16-2022 Urea nitrogen [Mass/Vol] 14 mg/dL 7-18 [facility] Thin prep Papanicolaou smear with manual screeningOrdered By: Lucy Partida on 12-16-2022 Thin prep Papanicolaou smear with manual screening 34 U/L 15-37 [facility] Thin prep Papanicolaou smear with manual screening 7 5-15 [facility] Absolute lymphocyte countOrd ered By: Nahum Dias on 12-15-2022 Lymphocytes Auto (Unsp spec) [#/Vol] 0.19 10*3/uL 0.83-4.51 [facility] Basophil percentageOrdered B y: Nahum Dias on 12-15-2022 Basophils/100 WBC (Bld) 0.2 % 0-1 [facility] Bilirubin [Mass/Vol] 1.40 mg/dL 0.20-1.00 [facility] Comment on above: For patients on eltr ombopag therapy, use of Dimension [place] TBIL is not recommended. Chloride [Moles/Vol] 105 mmol/L 98-107 [facility] Eosinophils/100 WBC (Bld) 0.7 % 0-5 [facility] Glucose [Mass/Vol] 131 mg/dL 74-106 [facility] Comment on above: Fasting Glucose resu lt greater than or equal to 126 mg/dL suggests DIABETES MELLITUS per A.D.A. criteria. Lactate [Moles/Vol] 1.7 mmol/L 0.4-2.0 [facility] Neutrophils (Bld) [#/Vol] 3.9 10*3/uL 2.0-7.7 [facility] Neutrophils/100 WBC (Bld) 90.2 % 47-70 [facility] Potassium [Moles/Vol] 3.3 mmol/L 3.5-5.1 [facility] Protein [Mass/Vol] 7.4 g/dL 6.4-8.2 [facility] Sodium [Moles/Vol] 135 mmol/L 136-145 [facility] WBC (Bld) [#/Vol] 4.3 10*3/uL 4.4-11.0 [facility] Blood erythrocytes count (nu mber/volume)Ordered By: Nahum Dias on 12-15-2022 RBC (Bld) [#/Vol] 4.61 10*6/uL 4.6-6.2 [facility] Blood hemoglobin measurement (mass/volume)Ordered By: Nahum Dias on 12-15-2022 Hemoglobin (Bld) [Mass/Vol] 14.4 g/dL 13.0-16.5 [facility] Blood lymphocytes/100 leukoc ytesOrdered By: Nahum Dias on 12-15-2022 Lymphocytes/100 WBC (Bld) 4.4 % 19-41 [facility] Blood manual differential co mment interpretation (narrative result)Ordered By: Nahum Dias on 12-15-2022 Manual differential comment Ildefonso (Bld) [Interp] SCANNED [facility] Comment on above: LYMPHOPENIA NOTEDTHR OMBOCYTOPENIA NOTED Blood monocytes/100 leukocyt esOrdered By: Nahum Dias on 12-15-2022 Monocytes/100 WBC (Bld) 4.0 % 0-10 [facility] Blood platelet mean volumeOr dered By: Nahum Dias on 12-15-2022 Platelet mean volume (Bld) [Entitic vol] 11.6 fL 6.2-12.0 [facility] Determination of erythrocyte mean corpuscular volume (MCV)Ordered By: Nahum Dias on 12-15-2022 MCV (RBC) [Entitic vol] 89.2 fL 80-94 [facility] Hematocrit Auto (Bld) [Volum e fraction]Ordered By: Nahum Dias on 12-15-2022 Hematocrit (Bld) [Volume fraction] 41.1 % 40-54 [facility] INR in Blood by Coagulation assayOrdered By: Nahum Dias on 12-15-2022 INR Coag (Bld) [Relative time] 1.2 {INR} [facility] - Chemistry and C hemistry - challengeOrdered By: Nahum Dias on 12-15-2022 ALP [Catalytic activity/Vol] 77 U/L 45-117 [facility] ALT [Catalytic activity/Vol] 47 U/L 16-61 [facility] CO2 [Moles/Vol] 21.0 mmol/L 21.0-32.0 [facility] Globulin (S) [Mass/Vol] 3.9 g/dL 2.2-4.2 [facility] Urea nitrogen/Creatinine [Mass ratio] 12.5 mg/mg 10-20 [facility] - Chemistry and C hemistry - challengeOrdered By: Lucy Partida on 12-15-2022 Magnesium [Mass/Vol] 1.8 mg/dL 1.6-2.6 [facility] - CoagulationOrde red By: Nahum Dias on 12-15-2022 aPTT Coag (Bld) [Time] 32.2 s 24.1-36.2 [facility] PT Coag (PPP) [Time] 14.9 s 11.7-14.9 [facility] - Hematology and Cell countsOrdered By: Nahum Dias on 12-15-2022 Erythrocyte distribution width (RBC) [Entitic vol] 43.3 fL 35.1-43.9 [facility] Erythrocyte distribution width (RBC) [Ratio] 13.2 % 11.6-14.6 [facility] Immature granulocytes/100 WBC (Bld) 0.500 % 0.0-0.9 [facility] Comment on above: IG% - Immature Granu locytes (promyelocytes, myelocytes and metamyelocytes) > 1% indicates that a LEFT SHIFT is Present. MCH (RBC) [Entitic mass] 31.2 pg 27.0-32.0 [facility] Nucleated RBC/100 WBC (Bld) [Ratio] 0 % 0-5 [facility] MCHC Auto (RBC) [Mass/Vol]Or dered By: Nahum Dias on 12-15-2022 MCHC (RBC) [Mass/Vol] 35.0 g/dL 32-36 [facility] No Panel InformationOrdered By: Nahum Dias on 12-15-2022 Estimated Creatinine Clearance Calc 68.24 ml/min [facility] Estimated GFR (MDRD) Amer 68 mL/min >60 [facility] Comment on above: GFR Calc Estimated GFR (MDRD) Non-Af Amer 56 mL/min >60 [facility] Comment on above: Non- GFR Calc Platelets bldOrdered By: Olivia Dias on 12-15-2022 Platelets (Bld) [#/Vol] 87 10*3/uL 150-450 [facility] Respiratory pathogens detect ion panel by molecular detection methodOrdered By: Lucy Partida on 12-15-2022 Respiratory pathogens DNA and RNA panel ASHLEY+probe (Resp) [facility] Serum or plasma albumin peterson urement (mass/volume)Ordered By: Nahum Dias on 12-15-2022 Albumin [Mass/Vol] 3.5 g/dL 3.2-5.0 [facility] Serum or plasma albumin/glob ulin mass ratioOrdered By: Nahum Dias on 12-15-2022 Albumin/Globulin [Mass ratio] 0.9 {ratio} 0.9-2.4 [facility] Serum or plasma calcium peterson urement (mass/volume)Ordered By: Nahum Dias on 12-15-2022 Calcium [Mass/Vol] 8.6 mg/dL 8.5-10.1 [facility] Serum or plasma creatinine m easurement (mass/volume)Ordered By: Nahum Dias on 12-15-2022 Creatinine [Mass/Vol] 1.36 mg/dL 0.70-1.30 [facility] Comment on above: The validity of the calculated GFR & GFRAA in patients over 70 years has not been determined. Clinical correlation is essential. Serum or plasma urea nitroge n measurement (mass/volume)Ordered By: Nahum Dias on 12-15-2022 Urea nitrogen [Mass/Vol] 17 mg/dL 7-18 [facility] Thin prep Papanicolaou smear with manual screeningOrdered By: Nahum Dias on 12-15-2022 Thin prep Papanicolaou smear with manual screening 36 U/L 15-37 [facility] Thin prep Papanicolaou smear with manual screening 9 5-15 [facility] Absolute lymphocyte countOrd ered By: Vee Horton on 12-14-2022 Lymphocytes Auto (Unsp spec) [#/Vol] 1.07 10*3/uL 0.83-4.51 [facility] Basophil percentageOrdered B y: Vee Horton on 12-14-2022 Basophil percentage >100 SEEN /hpf 0-5 [facility] Lactate [Moles/Vol] 1.4 mmol/L 0.4-2.0 [facility] Basophils/100 WBC (Bld) 0.2 % 0-1 [facility] Bilirubin [Mass/Vol] 2.30 mg/dL 0.20-1.00 [facility] Comment on above: For patients on eltr ombopag therapy, use of Dimension [place] TBIL is not recommended. Chloride [Moles/Vol] 105 mmol/L 98-107 [facility] Eosinophils/100 WBC (Bld) 0.1 % 0-5 [facility] Glucose [Mass/Vol] 100 mg/dL 74-106 [facility] Comment on above: Fasting Glucose resu lt from 100 to 125 mg/dL suggests IMPAIRED HOMEOSTASIS per A.D.A. criteria. Neutrophils (Bld) [#/Vol] 13.5 10*3/uL 2.0-7.7 [facility] Neutrophils/100 WBC (Bld) 85.4 % 47-70 [facility] Potassium [Moles/Vol] 3.0 mmol/L 3.5-5.1 [facility] Protein [Mass/Vol] 7.1 g/dL 6.4-8.2 [facility] Sodium [Moles/Vol] 138 mmol/L 136-145 [facility] WBC (Bld) [#/Vol] 15.8 10*3/uL 4.4-11.0 [facility] Bilirubin Test strip Ql (U)O rdered By: Vee Horton on 12-14-2022 Bilirubin Ql (U) 3 mg/dL Negative [facility] Comment on above: COLOR OF URINE MAY A FFECT DIPSTICK RESULTS. Blood erythrocytes count (nu mber/volume)Ordered By: Vee Horton on 12-14-2022 RBC (Bld) [#/Vol] 5.18 10*6/uL 4.6-6.2 [facility] Blood hemoglobin measurement (mass/volume)Ordered By: Vee Horton on 12-14-2022 Hemoglobin (Bld) [Mass/Vol] 15.7 g/dL 13.0-16.5 [facility] Blood lymphocytes/100 leukoc ytesOrdered By: Vee Horton on 12-14-2022 Lymphocytes/100 WBC (Bld) 6.8 % 19-41 [facility] Blood monocytes/100 leukocyt esOrdered By: Vee Horton on 12-14-2022 Monocytes/100 WBC (Bld) 6.9 % 0-10 [facility] Blood platelet mean volumeOr dered By: Vee Horton on 12-14-2022 Platelet mean volume (Bld) [Entitic vol] 11.9 fL 6.2-12.0 [facility] Culture, urineOrdered By: Matt Horton on 12-14-2022 Bacteria identified Cx Nom (U) Escherichia coli [facility] Determination of erythrocyte mean corpuscular volume (MCV)Ordered By: Vee Horton on 12-14-2022 MCV (RBC) [Entitic vol] 90.2 fL 80-94 [facility] Hematocrit Auto (Bld) [Volum e fraction]Ordered By: Vee Horton on 12-14-2022 Hematocrit (Bld) [Volume fraction] 46.7 % 40-54 [facility] INR in Blood by Coagulation assayOrdered By: Vee Horton on 12-14-2022 INR Coag (Bld) [Relative time] 1.1 {INR} [facility] Ketones Test strip Ql (U)Ord ered By: Vee Horton on 12-14-2022 Ketones Ql (U) 15 mg/dl Negative [facility] - Chemistry and C hemistry - challengeOrdered By: Vee Horton on 12-14-2022 ALP [Catalytic activity/Vol] 79 U/L 45-117 [facility] ALT [Catalytic activity/Vol] 25 U/L 16-61 [facility] CO2 [Moles/Vol] 28.0 mmol/L 21.0-32.0 [facility] Globulin (S) [Mass/Vol] 3.6 g/dL 2.2-4.2 [facility] Urea nitrogen/Creatinine [Mass ratio] 11.1 mg/mg 10-20 [facility] - CoagulationOrde red By: Vee Horton on 12-14-2022 aPTT Coag (Bld) [Time] 34.2 s 24.1-36.2 [facility] PT Coag (PPP) [Time] 14.5 s 11.7-14.9 [facility] - Hematology and Cell countsOrdered By: Vee Horton on 12-14-2022 Erythrocyte distribution width (RBC) [Entitic vol] 43.7 fL 35.1-43.9 [facility] Erythrocyte distribution width (RBC) [Ratio] 13.3 % 11.6-14.6 [facility] Immature granulocytes/100 WBC (Bld) 0.600 % 0.0-0.9 [facility] Comment on above: IG% - Immature Granu locytes (promyelocytes, myelocytes and metamyelocytes) > 1% indicates that a LEFT SHIFT is Present. MCH (RBC) [Entitic mass] 30.3 pg 27.0-32.0 [facility] Nucleated RBC/100 WBC (Bld) [Ratio] 0 % 0-5 [facility] MCHC Auto (RBC) [Mass/Vol]Or dered By: Vee Horton on 12-14-2022 MCHC (RBC) [Mass/Vol] 33.6 g/dL 32-36 [facility] Mucus LM Ql (Urine sed)Order ed By: Vee Horton on 12-14-2022 Mucus Ql (Urine sed) 0 SEEN /hpf [facility] Nitrite Test strip Ql (U)Ord ered By: Vee Horton on 12-14-2022 Nitrite Ql (U) Positive Negative [facility] No Panel InformationOrdered By: eVe Horton on 12-14-2022 Urine Transitional Epithelial Cells 0-5 SEEN /hpf 0-5 [facility] Estimated Creatinine Clearance Calc 68.75 ml/min [facility] Estimated GFR (MDRD) Amer 68 mL/min >60 [facility] Comment on above: GFR Calc Estimated GFR (MDRD) Non-Af Amer 56 mL/min >60 [facility] Comment on above: Non- GFR Calc Platelets bldOrdered By: Funmi Horton on 12-14-2022 Platelets (Bld) [#/Vol] 138 10*3/uL 150-450 [facility] Protein Test strip Ql (U)Ord ered By: Vee Horton on 12-14-2022 Protein Ql (U) 100 mg/dl Negative [facility] Serum or plasma albumin peterson urement (mass/volume)Ordered By: Vee Horton on 12-14-2022 Albumin [Mass/Vol] 3.5 g/dL 3.2-5.0 [facility] Serum or plasma albumin/glob ulin mass ratioOrdered By: Vee Horton on 12-14-2022 Albumin/Globulin [Mass ratio] 1.0 {ratio} 0.9-2.4 [facility] Serum or plasma calcium peterson urement (mass/volume)Ordered By: Vee Horton on 12-14-2022 Calcium [Mass/Vol] 8.8 mg/dL 8.5-10.1 [facility] Serum or plasma creatinine m easurement (mass/volume)Ordered By: Vee Horton on 12-14-2022 Creatinine [Mass/Vol] 1.35 mg/dL 0.70-1.30 [facility] Comment on above: The validity of the calculated GFR & GFRAA in patients over 70 years has not been determined. Clinical correlation is essential. Serum or plasma urea nitroge n measurement (mass/volume)Ordered By: Vee Horton on 12-14-2022 Urea nitrogen [Mass/Vol] 15 mg/dL 7-18 [facility] Squamous epithelial cells de tection in urine sediment by light microscopyOrdered By: Vee Horton on 12-14-2022 Epithelial cells.squamous LM Ql (Urine sed) 0-5 SEEN /hpf 0-5 [facility] Thin prep Papanicolaou smear with manual screeningOrdered By: Vee Horton on 12-14-2022 Thin prep Papanicolaou smear with manual screening 10 U/L 15-37 [facility] Thin prep Papanicolaou smear with manual screening 5 5-15 [facility] UA DIP, URINE (POC)on 2022 BILIRUBIN UA (POCT) Small Abnormal Negative [facility] CLARITY UA (POCT) Cloudy [facility] COLOR UA (POCT) Kath [facility] GLUCOSE UA (POCT) Negative Negative mg/dL [facility] HEMOGLOBIN/BLOOD UA (POCT) Large Abnormal Negative [facility] KETONE UA (POCT) Trace Negative mg/dL [facility] LEUKOCYTES UA (POCT) Small Abnormal Negative [facility] NITRITE UA (POCT) Positive Abnormal Negative [facility] PH UA (POCT) 5.5 4.5 - 8.0 [facility] Protein Ql (U) >=300 Abnormal Negative mg/dL [facility] SPECIFIC GRAVITY UA (POCT) >=1.030 1.005 - 1.030 [facility] UROBILINOGEN UA (POCT) 1.0 E.U./dL Normal E.U./dL [facility] Urine blood detectionOrdered By: Vee Horton on 12-14-2022 RBC Ql (U) 250 /ul Negative [facility] RBC Ql (U) 50-100 SEEN /hpf 0-5 [facility] Urine clarityOrdered By: Funmi Horton on 12-14-2022 Clarity (U) Cloudy Clear [facility] Urine color determinationOrd ered By: Vee Horton on 12-14-2022 Color (U) Kath Yellow [facility] Urine glucose detectionOrder ed By: Vee Horton on 12-14-2022 Glucose Ql (U) Normal mg/dl Normal [facility] Urine leukocyte esterase det ection by dipstickOrdered By: Vee Horton on 12-14-2022 Leukocyte esterase Test strip Ql (U) 500 /ul Negative [facility] Urine pHOrdered By: Vee Horton on 12-14-2022 pH (U) 6.0 [pH] 5.0 - 8.0 [facility] Urine sediment bacteria coun t by microscopy (number/high power field)Ordered By: Vee Horton on 12-14-2022 Bacteria LM.HPF (Urine sed) [#/Area] 1 /[HPF] None Seen [facility] Urine specific gravity measu rementOrdered By: Vee Horton on 12-14-2022 Specific gravity (U) [Rel density] 1.020 1.002-1.03 0 [facility] Urobilinogen Auto test strip Ql (U)Ordered By: Vee Horton on 12-14-2022 Urobilinogen Ql (U) 4 mg/dl Normal [facility] Basophil percentageOrdered B y: Aparna Gooden on 08-08-2022 Chloride [Moles/Vol] 105 mmol/L 98-107 [facility] Glucose [Mass/Vol] 131 mg/dL 74-106 [facility] Comment on above: Fasting Glucose resu lt greater than or equal to 126 mg/dL suggests DIABETES MELLITUS per A.D.A. criteria. Potassium [Moles/Vol] 3.9 mmol/L 3.5-5.1 [facility] Sodium [Moles/Vol] 140 mmol/L 136-145 [facility] Laboratory - Chemistry and C hemistry - challengeOrdered By: Aparna Gooden on 08-08-2022 CO2 [Moles/Vol] 31.0 mmol/L 21.0-32.0 [facility] Urea nitrogen/Creatinine [Mass ratio] 13.3 mg/mg 10- [facility] No Panel InformationOrdered By: Aparna Gooden on 08-08-2022 Estimated Creatinine Clearance Calc 78.38 ml/min [facility] Estimated GFR (MDRD) Amer 78 mL/min >60 [facility] Comment on above: GFR Calc Estimated GFR (MDRD) Non-Af Amer 65 mL/min >60 [facility] Comment on above: Non- GFR Calc Serum or plasma calcium peterson urement (mass/volume)Ordered By: Aparna Gooden on 08-08-2022 Calcium [Mass/Vol] 9.4 mg/dL 8.5-10.1 [facility] Serum or plasma creatinine m easurement (mass/volume)Ordered By: Aparna Gooden on 08-08-2022 Creatinine [Mass/Vol] 1.20 mg/dL 0.70-1.30 [facility] Comment on above: The validity of the calculated GFR & GFRAA in patients over 70 years has not been determined. Clinical correlation is essential. Serum or plasma urea nitroge n measurement (mass/volume)Ordered By: Aparna Gooden on 08-08-2022 Urea nitrogen [Mass/Vol] 16 mg/dL 7-18 [facility] Thin prep Papanicolaou smear with manual screeningOrdered By: Aparna Gooden on 08-08-2022 Thin prep Papanicolaou smear with manual screening 4 5-15 [facility] Basophil percentageOrdered B y: Dr. Alfred on 06-16-2022 Chloride [Moles/Vol] 109 mmol/L 98-107 [facility] Glucose [Mass/Vol] 103 mg/dL 74-106 [facility] Comment on above: Fasting Glucose resu lt from 100 to 125 mg/dL suggests IMPAIRED HOMEOSTASIS per A.D.A. criteria. Potassium [Moles/Vol] 3.9 mmol/L 3.5-5.1 [facility] Comment on above: Slight Hemolysis, Re sult may be falsely increased. Sodium [Moles/Vol] 142 mmol/L 136-145 [facility] Laboratory - Chemistry and C hemistry - challengeOrdered By: Dr. Alfred on 06-16-2022 CO2 [Moles/Vol] 30.0 mmol/L 21.0-32.0 [facility] Urea nitrogen/Creatinine [Mass ratio] 15.0 mg/mg 10- [facility] No Panel InformationOrdered By: Dr. Alfred on 06-16-2022 Estimated GFR (MDRD) Amer 97 mL/min >60 [facility] Comment on above: GFR Calc Estimated GFR (MDRD) Non-Af Amer 80 mL/min >60 [facility] Comment on above: Non- GFR Calc Serum or plasma calcium peterson urement (mass/volume)Ordered By: Dr. Alfred on 06-16-2022 Calcium [Mass/Vol] 8.9 mg/dL 8.5-10.1 [facility] Serum or plasma creatinine m easurement (mass/volume)Ordered By: Dr. Alfred on 06-16-2022 Creatinine [Mass/Vol] 1.00 mg/dL 0.70-1.30 [facility] Comment on above: The validity of the calculated GFR & GFRAA in patients over 70 years has not been determined. Clinical correlation is essential. Serum or plasma urea nitroge n measurement (mass/volume)Ordered By: Dr. Alfred on 06-16-2022 Urea nitrogen [Mass/Vol] 15 mg/dL 7-18 [facility] Thin prep Papanicolaou smear with manual screeningOrdered By: Dr. Alfred on 06-16-2022 Thin prep Papanicolaou smear with manual screening 3 5-15 [facility] Absolute lymphocyte countOrd ered By: Dr. Shi on 05-07-2022 Lymphocytes Auto (Unsp spec) [#/Vol] 1.31 10*3/uL 0.83-4.51 [facility] Basophil percentageOrdered B y: Dr. Shi on 05-07-2022 Basophils/100 WBC (Bld) 0.3 % 0-1 [facility] Chloride [Moles/Vol] 109 mmol/L 98-107 [facility] Eosinophils/100 WBC (Bld) 1.6 % 0-5 [facility] Glucose [Mass/Vol] 101 mg/dL 74-106 [facility] Comment on above: Fasting Glucose resu lt from 100 to 125 mg/dL suggests IMPAIRED HOMEOSTASIS per A.D.A. criteria. Neutrophils (Bld) [#/Vol] 3.9 10*3/uL 2.0-7.7 [facility] Neutrophils/100 WBC (Bld) 66.6 % 47-70 [facility] Potassium [Moles/Vol] 3.7 mmol/L 3.5-5.1 [facility] Sodium [Moles/Vol] 141 mmol/L 136-145 [facility] WBC (Bld) [#/Vol] 5.8 10*3/uL 4.4-11.0 [facility] Blood erythrocytes count (nu mber/volume)Ordered By: Dr. Shi on 05-07-2022 RBC (Bld) [#/Vol] 5.62 10*6/uL 4.6-6.2 [facility] Blood hemoglobin measurement (mass/volume)Ordered By: Dr. Shi on 05-07-2022 Hemoglobin (Bld) [Mass/Vol] 16.1 g/dL 13.0-16.5 [facility] Blood lymphocytes/100 leukoc ytesOrdered By: Dr. Shi on 05-07-2022 Lymphocytes/100 WBC (Bld) 22.6 % 19-41 [facility] Blood monocytes/100 leukocyt esOrdered By: Dr. Shi on 05-07-2022 Monocytes/100 WBC (Bld) 8.6 % 0-10 [facility] Blood platelet mean volumeOr dered By: Dr. Shi on 05-07-2022 Platelet mean volume (Bld) [Entitic vol] 11.5 fL 6.2-12.0 [facility] Determination of erythrocyte mean corpuscular volume (MCV)Ordered By: Dr. Shi on 05-07-2022 MCV (RBC) [Entitic vol] 85.4 fL 80-94 [facility] Hematocrit Auto (Bld) [Volum e fraction]Ordered By: Dr. Shi on 05-07-2022 Hematocrit (Bld) [Volume fraction] 48.0 % 40-54 [facility] Laboratory - Chemistry and C hemistry - challengeOrdered By: Dr. Shi on 05-07-2022 CO2 [Moles/Vol] 29.0 mmol/L 21.0-32.0 [facility] Urea nitrogen/Creatinine [Mass ratio] 10.6 mg/mg 10-20 [facility] Laboratory - Hematology and Cell countsOrdered By: Dr. Shi on 05-07-2022 Erythrocyte distribution width (RBC) [Entitic vol] 42.3 fL 35.1-43.9 [facility] Erythrocyte distribution width (RBC) [Ratio] 13.8 % 11.6-14.6 [facility] Immature granulocytes/100 WBC (Bld) 0.300 % 0.0-0.9 [facility] Comment on above: IG% - Immature Granu locytes (promyelocytes, myelocytes and metamyelocytes) > 1% indicates that a LEFT SHIFT is Present. MCH (RBC) [Entitic mass] 28.6 pg 27.0-32.0 [facility] Nucleated RBC/100 WBC (Bld) [Ratio] 0 % 0-5 [facility] MCHC Auto (RBC) [Mass/Vol]Or dered By: Dr. Shi on 05-07-2022 MCHC (RBC) [Mass/Vol] 33.5 g/dL 32-36 [facility] No Panel InformationOrdered By: Dr. Shi on 05-07-2022 Troponin I High Sensitivity 13 pg/mL 3.0-78.0 [facility] Comment on above: Please Note: New Crissy t Units and Gender Specific Reference Ranges. For more information see Policy Stat Procedure [place] High Sensitivity Troponin (TNIH) and attachments. Estimated Creatinine Clearance Calc 90.43 ml/min [facility] Estimated GFR (MDRD) Amer 92 mL/min >60 [facility] Comment on above: GFR Calc Estimated GFR (MDRD) Non-Af Amer 76 mL/min >60 [facility] Comment on above: Non- GFR Calc Platelets bldOrdered By: Dr. Shi on 05-07-2022 Platelets (Bld) [#/Vol] 156 10*3/uL 150-450 [facility] Serum or plasma calcium petesron urement (mass/volume)Ordered By: Dr. Shi on 05-07-2022 Calcium [Mass/Vol] 8.8 mg/dL 8.5-10.1 [facility] Serum or plasma creatinine m easurement (mass/volume)Ordered By: Dr. Shi on 05-07-2022 Creatinine [Mass/Vol] 1.04 mg/dL 0.70-1.30 [facility] Comment on above: The validity of the calculated GFR & GFRAA in patients over 70 years has not been determined. Clinical correlation is essential. Serum or plasma urea nitroge n measurement (mass/volume)Ordered By: Dr. Shi on 05-07-2022 Urea nitrogen [Mass/Vol] 11 mg/dL 7-18 [facility] Thin prep Papanicolaou smear with manual screeningOrdered By: Dr. Shi on 05-07-2022 Thin prep Papanicolaou smear with manual screening 3 5-15 [facility] Absolute lymphocyte countOrd ered By: Dr. Alfred on 04-29-2022 Lymphocytes Auto (Unsp spec) [#/Vol] 1.25 10*3/uL 0.83-4.51 [facility] Basophil percentageOrdered B y: Dr. Alfred on 04-29-2022 Basophils/100 WBC (Bld) 0.3 % 0-1 [facility] Chloride [Moles/Vol] 107 mmol/L 98-107 [facility] Eosinophils/100 WBC (Bld) 1.2 % 0-5 [facility] Glucose [Mass/Vol] 147 mg/dL 74-106 [facility] Comment on above: Fasting Glucose resu lt greater than or equal to 126 mg/dL suggests DIABETES MELLITUS per A.D.A. criteria. Neutrophils (Bld) [#/Vol] 5.5 10*3/uL 2.0-7.7 [facility] Neutrophils/100 WBC (Bld) 74.4 % 47-70 [facility] Potassium [Moles/Vol] 3.7 mmol/L 3.5-5.1 [facility] Sodium [Moles/Vol] 141 mmol/L 136-145 [facility] WBC (Bld) [#/Vol] 7.4 10*3/uL 4.4-11.0 [facility] Blood erythrocytes count (nu mber/volume)Ordered By: Dr. Alfred on 04-29-2022 RBC (Bld) [#/Vol] 5.68 10*6/uL 4.6-6.2 [facility] Blood hemoglobin measurement (mass/volume)Ordered By: Dr. Alfred on 04-29-2022 Hemoglobin (Bld) [Mass/Vol] 16.8 g/dL 13.0-16.5 [facility] Blood lymphocytes/100 leukoc ytesOrdered By: Dr. Alfred on 04-29-2022 Lymphocytes/100 WBC (Bld) 16.9 % 19-41 [facility] Blood monocytes/100 leukocyt esOrdered By: Dr. Alfred on 04-29-2022 Monocytes/100 WBC (Bld) 6.9 % 0-10 [facility] Blood platelet mean volumeOr dered By: Dr. Alfred on 04-29-2022 Platelet mean volume (Bld) [Entitic vol] 12.1 fL 6.2-12.0 [facility] Determination of erythrocyte mean corpuscular volume (MCV)Ordered By: Dr. Alfred on 04-29-2022 MCV (RBC) [Entitic vol] 86.3 fL 80-94 [facility] Hematocrit Auto (Bld) [Volum e fraction]Ordered By: Dr. Alfred on 04-29-2022 Hematocrit (Bld) [Volume fraction] 49.0 % 40-54 [facility] Laboratory - Chemistry and C hemistry - challengeOrdered By: Dr. Alfred on 04-29-2022 CO2 [Moles/Vol] 28.0 mmol/L 21.0-32.0 [facility] Magnesium [Mass/Vol] 2.3 mg/dL 1.6-2.6 [facility] Urea nitrogen/Creatinine [Mass ratio] 16.2 mg/mg 10-20 [facility] Laboratory - Hematology and Cell countsOrdered By: Dr. Alfred on 04-29-2022 Erythrocyte distribution width (RBC) [Entitic vol] 42.8 fL 35.1-43.9 [facility] Erythrocyte distribution width (RBC) [Ratio] 13.7 % 11.6-14.6 [facility] Immature granulocytes/100 WBC (Bld) 0.300 % 0.0-0.9 [facility] Comment on above: IG% - Immature Granu locytes (promyelocytes, myelocytes and metamyelocytes) > 1% indicates that a LEFT SHIFT is Present. MCH (RBC) [Entitic mass] 29.6 pg 27.0-32.0 [facility] Nucleated RBC/100 WBC (Bld) [Ratio] 0 % 0-5 [facility] ([facility]) [Mass/Vol]Or dered By: Dr. Alfred on 04-29-2022 MCHC (RBC) [Mass/Vol] 34.3 g/dL 32-36 [facility] No Panel InformationOrdered By: Dr. Alfred on 04-29-2022 Estimated GFR (MDRD) Amer 71 mL/min >60 [facility] Comment on above: GFR Calc Estimated GFR (MDRD) Non-Af Amer 59 mL/min >60 [facility] Comment on above: Non- GFR Calc Thyroid Stimulating Hormone (TSH) 1.24 uIU/mL 0.358-3.74 [facility] Platelets bldOrdered By: Dr. Alfred on 04-29-2022 Platelets (Bld) [#/Vol] 163 10*3/uL 150-450 [facility] Serum or plasma calcium peterson urement (mass/volume)Ordered By: Dr. Alfred on 04-29-2022 Calcium [Mass/Vol] 9.5 mg/dL 8.5-10.1 [facility] Serum or plasma creatinine m easurement (mass/volume)Ordered By: Dr. Alfred on 04-29-2022 Creatinine [Mass/Vol] 1.30 mg/dL 0.70-1.30 [facility] Comment on above: The validity of the calculated GFR & GFRAA in patients over 70 years has not been determined. Clinical correlation is essential. Serum or plasma urea nitroge n measurement (mass/volume)Ordered By: Dr. Alfred on 04-29-2022 Urea nitrogen [Mass/Vol] 21 mg/dL 7-18 [facility] Thin prep Papanicolaou smear with manual screeningOrdered By: Dr. Alfred on 04-29-2022 Thin prep Papanicolaou smear with manual screening 6 5-15 [facility] Basophil percentageOrdered B y: Dr. Ramos on 04-25-2022 Testosterone [Mass/Vol] 367.66 ng/dL [facility] Comment on above: CENTRAL 90% REFERENC E RANGES MALE AGE <50 197.44 - 669.58 ng/dL MALE AGE > or = 50 187.72 - 684.19 ng/dL FEMALE AGE <50 8.38 - 35.01 ng/dL FEMALE AGE > or = 50 <7.00 - 35.92 ng/dL Effective as of 01/12/21 Basophil percentageOrdered B y: Dr. Alfred on 04-20-2022 Bilirubin [Mass/Vol] 1.10 mg/dL 0.20-1.00 [facility] Comment on above: For patients on eltr ombopag therapy, use of Dimension [place] TBIL is not recommended. Cholesterol [Mass/Vol] 73 mg/dL <200 [facility] Comment on above: <200 mg/dL Desirable 200-240 mg/dL Borderline >240 mg/dL High Risk Protein [Mass/Vol] 7.3 g/dL 6.4-8.2 [facility] Triglyceride [Mass/Vol] 139 mg/dL <199 [facility] Comment on above: The drugs N-Acetylcy steine and Metamizole may falsely depress this assay.Serum Triglycerides Reference Interval Normal <150 mg/dL Borderline high 150 - 199 mg/dL High 200 - 499 mg/dL Very High > or = 500 mg/dL Direct bilirubinOrdered By: Dr. Alfred on 04-20-2022 Bilirubin.direct [Mass/Vol] 0.31 mg/dL 0.00-0.30 [facility] LIPID PANEL (OUTSIDE)on Non-HDL Cholesterol [facility] VLDL Cholesterol 28 [facility] Laboratory - Chemistry and C hemistry - challengeOrdered By: Dr. Alfred on 04-20-2022 ALP [Catalytic activity/Vol] 77 U/L 45-117 [facility] ALT [Catalytic activity/Vol] 37 U/L 16-61 [facility] Globulin (S) [Mass/Vol] 3.4 g/dL 2.2-4.2 [facility] No Panel InformationOrdered By: Dr. Alfred on 04-20-2022 Prostate Specific Antigen Screen 2.95 ng/mL 0.00-4.00 [facility] Comment on above: This test was perfor med using the TPSA assay method for the[facility] chemistry system. Values obtained with differentassay methods cannot be used interchangably.When changing PSA assays in the course of monitoring apatient, additional sequential testing should be carriedout to confirm baseline values. Serum or plasma albumin peterson urement (mass/volume)Ordered By: Dr. Alfred on 04-20-2022 Albumin [Mass/Vol] 3.9 g/dL 3.2-5.0 [facility] Serum or plasma cholesterol in HDL measurement (mass/volume)Ordered By: Dr. Alfred on 04-20-2022 Cholesterol in HDL [Mass/Vol] 27 mg/dL >40 [facility] Comment on above: The drugs N-Acetylcy steine and Metamizole may falsely depress this assay. Reference Range HDL <40 mg/dL Low HDL Cholesterol HDL >or= 60 mg/dL High HDL Cholesterol Serum or plasma cholesterol in VLDL measurement (mass/volume)Ordered By: Dr. Alfred on 04-20-2022 Cholesterol in VLDL [Mass/Vol] 28 mg/dL 5-40 [facility] Serum or plasma low density lipoprotein (LDL) cholesterol measurement (mass/volume)Ordered By: Dr. Alfred on 04-20-2022 Cholesterol in LDL [Mass/Vol] 18 mg/dL 0-130 [facility] Thin prep Papanicolaou smear with manual screeningOrdered By: Dr. Alfred on 04-20-2022 Thin prep Papanicolaou smear with manual screening 21 U/L 15-37 [facility] Absolute lymphocyte counton 02-12-2022 Lymphocytes Auto (Unsp spec) [#/Vol] 1.10 10*3/uL 0.83-4.51 [facility] Work Phone: Basophil percentageon 2021 Basophils/100 WBC (Bld) 0.2 % 0-1 [facility] Work Phone: Bilirubin [Mass/Vol] 1.00 mg/dL 0.20-1.00 [facility] Work Phone: Comment on above: For patients on eltr ombopag therapy, use of Dimension [place] TBIL is not recommended. Chloride [Moles/Vol] 110 mmol/L 98-107 [facility] Work Phone: Eosinophils/100 WBC (Bld) 2.5 % 0-5 [facility] Work Phone: Glucose [Mass/Vol] 94 mg/dL 74-106 [facility] Work Phone: Neutrophils (Bld) [#/Vol] 3.6 10*3/uL 2.0-7.7 [facility] Work Phone: Neutrophils/100 WBC (Bld) 67.4 % 47-70 [facility] Work Phone: Potassium [Moles/Vol] 4.1 mmol/L 3.5-5.1 [facility] Work Phone: Protein [Mass/Vol] 7.3 g/dL 6.4-8.2 [facility]: [phone] Sodium [Moles/Vol] 141 mmol/L 136-145 [facility] Phone: WBC (Bld) [#/Vol] 5.3 10*3/uL 4.4-11.0 [facility] Work Phone: Blood erythrocytes count (nu mber/volume)on 02-12-2022 RBC (Bld) [#/Vol] 5.64 10*6/uL 4.6-6.2 [facility]: Blood hemoglobin measurement (mass/volume)on 02-12-2022 Hemoglobin (Bld) [Mass/Vol] 15.8 g/dL 13.0-16.5 [facility] Work Phone: Blood lymphocytes/100 leukoc yteson 02-12-2022 Lymphocytes/100 WBC (Bld) 20.8 % 19-41 [facility] Work Phone: Blood monocytes/100 leukocyt eson 02-12-2022 Monocytes/100 WBC (Bld) 8.9 % 0-10 [facility] Work Phone: Blood platelet mean volumeon 02-12-2022 Platelet mean volume (Bld) [Entitic vol] 11.3 fL 6.2-12.0 [facility] Work Phone: Determination of erythrocyte mean corpuscular volume (MCV)on 02-12-2022 MCV (RBC) [Entitic vol] 86.0 fL 80-94 [facility] Work Phone: Erythrocyte sedimentation ra ankush 02-12-2022 ESR (Bld) [Velocity] 6 mm/h 0-20 [facility] Work Phone: Hematocrit Auto (Bld) [Volum e fraction]on 02-12-2022 Hematocrit (Bld) [Volume fraction] 48.5 % 40-54 [facility] Work Phone: Laboratory - Chemistry and C hemistry - challengeon 02-12-2022 ALP [Catalytic activity/Vol] 74 U/L 45-117 [facility] Work Phone: ALT [Catalytic activity/Vol] 34 U/L 16-61 [facility] Work Phone: CO2 [Moles/Vol] 30.0 mmol/L 21.0-32.0 [facility] Work Phone: Globulin (S) [Mass/Vol] 3.3 g/dL 2.2-4.2 [facility] Work Phone: Urea nitrogen/Creatinine [Mass ratio] 16.0 mg/mg 10-20 [facility] Work Phone: Laboratory - Hematology and Cell countson 02-12-2022 Erythrocyte distribution width (RBC) [Entitic vol] 41.6 fL 35.1-43.9 [facility] Work Phone: Erythrocyte distribution width (RBC) [Ratio] 13.5 % 11.6-14.6 [facility] Work Phone: Immature granulocytes/100 WBC (Bld) 0.200 % 0.0-0.9 [facility] Work Phone: Comment on above: IG% - Immature Granu locytes (promyelocytes, myelocytes and metamyelocytes) > 1% indicates that a LEFT SHIFT is Present. MCH (RBC) [Entitic mass] 28.0 pg 27.0-32.0 [facility] Work Phone: Nucleated RBC/100 WBC (Bld) [Ratio] 0 % 0-5 [facility] Work Phone: MCHC Auto (RBC) [Mass/Vol]on 02-12-2022 MCHC (RBC) [Mass/Vol] 32.6 g/dL 32-36 [facility] Work Phone: No Panel Informationon 02-12 Estimated Creatinine Clearance Calc 88.73 ml/min [facility] Work Phone: Estimated GFR (MDRD) Amer 90 mL/min >60 [facility] Work Phone: Comment on above: GFR Calc Estimated GFR (MDRD) Non-Af Amer 75 mL/min >60 [facility] Work Phone: Comment on above: Non- GFR Calc Platelets bldon 02-12-2022 Platelets (Bld) [#/Vol] 142 10*3/uL 150-450 [facility] Work Phone: Serum or plasma albumin peterson urement (mass/volume)on 02-12-2022 Albumin [Mass/Vol] 4.0 g/dL 3.2-5.0 [facility] Work Phone: Serum or plasma albumin/glob ulin mass ratioon 02-12-2022 Albumin/Globulin [Mass ratio] 1.2 {ratio} 0.9-2.4 [facility] Work Phone: Serum or plasma calcium peterson urement (mass/volume)on 02-12-2022 Calcium [Mass/Vol] 9.1 mg/dL 8.5-10.1 [facility] Work Phone: Serum or plasma creatinine m easurement (mass/volume)on 02-12-2022 Creatinine [Mass/Vol] 1.06 mg/dL 0.70-1.30 [facility] Work Phone: Comment on above: The validity of the calculated GFR & GFRAA in patients over 70 years has not been determined. Clinical correlation is essential. Serum or plasma urea nitroge n measurement (mass/volume)on 02-12-2022 Urea nitrogen [Mass/Vol] 17 mg/dL 7-18 [facility] Work Phone: Thin prep Papanicolaou smear with manual screeningon 02-12-2022 Thin prep Papanicolaou smear with manual screening 20 U/L 15-37 [facility] Work Phone: Thin prep Papanicolaou smear with manual screening 1 5-15 [facility] Work Phone: No Panel Informationon 11-29 D-Dimer Quantitative (PE/DVT) 0.40 FEU/ug/m 0.27-0.49 [facility] Work Phone: Comment on above: NORMAL D-Dimer level (<0.50) indicates no DVT or PE. XR Chest PA and Lateralon IMPRESSION: Left basilar atelectasis or mild infiltrates unchanged. [employer]: LEONELB Transcribe Date/Time: Nov 29 2021 1:44P Dictated by : LETTY THOMAS MD This examination was interpreted and the report reviewed and electronically signed by: LETTY THOMAS MD on Nov 29 2021 1:46PM EST [id number] USE_DIVISIO N OF RADIOLOGY * * *Final [...] Left basilar atelectasis or mild infiltrates unchanged. [employer]: OSMANI Transcribe Date/Time: Nov 29 2021 1:44P Dictated by : LETTY THOMAS MD This examination was interpreted and the report reviewed and electronically signed by: LETTY THOMAS MD on Nov 29 2021 1:46PM EST [facility] Radiology Study observation (narrative) [facility] XR Chest PA and LateralOrder ed By: [facility] Provider on 11-29-2021 [facility] Basophil percentageon 2021 Testosterone [Mass/Vol] 128.64 ng/dL [facility] Work Phone: Comment on above: CENTRAL 90% REFERENC E RANGES MALE AGE <50 197.44 - 669.58 ng/dL MALE AGE > or = 50 187.72 - 684.19 ng/dL FEMALE AGE <50 8.38 - 35.01 ng/dL FEMALE AGE > or = 50 <7.00 - 35.92 ng/dL Effective as of 01/12/21 Serum or plasma testosterone free measurement (mass/volume)on 10-20-2021 Testosterone Free [Mass/Vol] 2.0 pg/mL 6.6-18.1 [facility] Work Phone: Comment on above: Performed at: [address] [id number] Director: Teresa Olivia MD, Phone: [phone] No Panel Informationon 09-10 IMPRESSION: 1. Right ankle grossly unremarkable. 2. First MTP joint degenerative arthritis again noted. Bones otherwise intact in the right foot. [employer]: OSMANI Transcribe Date/Time: Sep 10 2021 6:58P Dictated by : MYKE OWEN MD This examination was interpreted and the report reviewed and electronically signed by: MYKE OWEN MD on Sep 10 2021 7:00PM [facility] DIVISION OF RADIOLOGY Radiology Study observation (narrative) [facility] No Panel InformationOrdered By: [facility] Provider on 09-10-2021 [facility] XR Ankle - right AP and Late ral and obliqueon 09-10-2021 * * *Final Report* * * DATE OF EXAM: Sep 10 2021 4:32PM STX 5297 - XR ANKLE 3V AP/LAT/OBL RT / PROCEDURE REASON: Pain * * * * Physician Interpretation * * * * HISTORY: chronic right ankle pain (accession [id number]), chronic right foot pain (accession [id number]). Pain . TECHNIQUE: XR ANKLE 3V AP/LAT/OBL [...] navicular bone unchanged. DIVISION OF RADIOLOGY [facility] * * *Final Report* * * DATE OF EXAM: Sep 10 2021 4:32PM STX 5297 - XR ANKLE 3V AP/LAT/OBL RT / PROCEDURE REASON: Pain * * * * Physician Interpretation * * * * HISTORY: chronic right ankle pain (accession [id number]), chronic right foot pain (accession [id number]). Pain . TECHNIQUE: XR ANKLE 3V AP/LAT/OBL [...] Bones otherwise intact in the right foot. [facility] Transcribe Date/Time: Sep 10 2021 6:58P Dictated by : MYKE OWEN MD This examination was interpreted and the report reviewed and electronically signed by: MYKE OWEN MD on Sep 10 2021 7:00PM [facility] XR Foot - right AP and Later al and obliqueon 09-10-2021 * * *Final Report* * * DATE OF EXAM: Sep 10 2021 4:32PM STX 5337 - XR FOOT 3V AP/LAT/OBL RT / PROCEDURE REASON: Pain * * * * Physician Interpretation * * * * HISTORY: chronic right ankle pain (accession [id number]), chronic right foot pain (accession [id number]). Pain . TECHNIQUE: XR ANKLE 3V AP/LAT/OBL [...] navicular bone unchanged. DIVISION OF RADIOLOGY Provider, [facility]/10/2021 * * *Final Report* * * DATE OF EXAM: Sep 10 2021 4:32PM STX 5337 - XR FOOT 3V AP/LAT/OBL RT / PROCEDURE REASON: Pain * * * * Physician Interpretation * * * * HISTORY: chronic right ankle pain (accession [id number]), chronic right foot pain (accession [id number]). Pain . TECHNIQUE: XR ANKLE 3V AP/LAT/OBL [...] Bones otherwise intact in the right foot. Ste[employer] Dock: P[facility] Transcribe Date/Time: Sep 10 2021 6:58P Dictated by : MYKE OWEN MD This examination was interpreted and the report reviewed and electronically signed by: MYKE OWEN MD on Sep 10 2021 7:00PM [facility] DATE OF SERVICE: SUBJECTIVE: Patient is here with a history of gout and right great toe pain beginning several days after he stopped taking his allopurinol. OBJECTIVE: Right great toe is tender. ASSESSMENT: Gout. PLAN: Prednisone 60 mg daily for up to 5 days. Resume other medications. MD ESEQUIEL Godoy/[id number] SSI File#: [id number] END OF DOCUMENT / CHANGE LOG FOLLOWS Last Edited By Elec. Signed By Abraham Rosa MD #NAUTH Abraham Rosa MD #NAUTH on 09/14/2020 09:32 ET on 09/14/2020 09:32 ET Revision Number - 2 * Kan[facility] PATIENT NAME: LAZARO GARZON [address] [facility] MEDICAL REC #: [id number] [place], [place] [facility]MIT [facility]: [facility] PH[facility]ICIAN Verified/Reviewed by 09/14/20 0932 KELVIN * [facility] PATIENT NAME: LAZARO GARZON [address] [facility] MEDICAL REC #: [id number] [place], [place] [facility]: [facility] PHYSICIAN [facility] [place] [place] XR Foot - right AP and Later al and obliqueon 04-29-2020 IMPRESSION: No acute findings. [place]: OSMANI Transcribe Date/Time: Apr 29 2020 9:20A Dictated by : NAIDA BARAJAS MD This examination was interpreted and the report reviewed and electronically signed by: NAIDA BARAJAS MD on Apr 29 2020 9:22AM [facility] DIVISION OF RADIOLOGY * * *Final [...] other significant abnormality. DIVISION OF RADIOLOGY Provider, [facility] - 04/29/2020 * * *Final Report* * [...] significant abnormality. IMPRESSION IMPRESSION: No acute findings. [place]: PSCB Transcribe Date/Time: Apr 29 2020 9:20A Dictated by : NAIDA BARAJAS MD This examination was interpreted and the report reviewed and electronically signed by: NAIDA BARAJAS MD on Apr 29 2020 9:22AM [facility] XR Foot - right AP and Later al and obliqueOrdered By: Cc Provider on 04-29-2020 [facility] XR Foot - right AP and Later al and obliqueon 04-28-2020 Radiology Study observation (narrative) [facility] .GFRon 08-28-2019 GFR 75 ml/min/1.73sqm Normal [facility] ([place]) Comment on above: Result Comment: GFR Population [...] Performed By: #### C RE, GFR #### [place] [address] GFR Non- 62 ml/min/1.73sqm Normal [facility] ([place]) Comment on above: Result Comment: GFR Population [...] Performed By: #### C RE, GFR #### [address] [address] CREon 08-28-2019 Creatinine [Mass/Vol] 1.19 mg/dL Normal 0.70-1.30 [facility] ([place]) Comment on above: Performed By: #### C RE, GFR #### [place] [address] CT ENTEROGRAPHY ABD/PELVIS W /CONTRASTon 08-28-2019 CT [...] Sign Date: 08/28/2019 10:39:54 AM Ordering Provider:Fabian Braun [facility] ([place]) EMERGENCY REPORTon 8 EMERGENCY REPORT [facility] EM ERGENCY ROOM REPORT NAME ACCOUNT SEX AGE ADMIT DISCHARGE PT MED. RECORD# NUMBER DATE DATE TYPE DURAN [id number] Sincere 62 10/30/17 10/30/17 3 LAZARO [id number] ROOM: ER DATE OF : 1955 DICTATING [...] years. 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 PAST MEDICAL HISTORY: TIA, hypertension. PAST SURGICAL [...] did try to get him transferred to [facility]; however, they do no have any beds. We are going to call his freight and passenger agent, Dr. Alfred. Dictated By: Jagjit Souza DO 10/30/17 10:48 JOB #: [id number] Transcribed By: am 10/30/17 17:37 Electronically signed by: LOYD Souza D.O. 11/05/17 09:59 Page 2 of 2 LAZARO GARZON Emergency Room Report Normal [facility] APTTon 10-30-2017 aPTT 29.2 s Normal 21.6 - 35.4 [facility] Comment on above: Performed By: #### 2 68200 ####[facility],[address] [place] [address] CBCon 10-30-2017 Basophils Auto #/vol (Bld) 0.00 x10EE3/UL Normal 0.00 - 0.10 [facility] Comment on above: Performed By: #### 2 67211 ####[address],[place] [address] Basophils/100 WBC Auto (Bld) 0.5 % Normal 0.0 - 2.0 [facility] Comment on above: Performed By: #### 2 97337 ####[facility],[address] [place] [address] Blood morphology N/A Normal [facility] Comment on above: Result Comment: {CD] Performed By: #### 2 18879 ####[facility],[address] [place] [address] CBC Normal [facility] Comment on above: Result Comment: CBC- COMPLETE BLOOD COUNT Performed By: #### 2 52439 ####[facility],[address] [place], [place] [id number] Eosinophils 0.10 x10EE3/UL Normal 0.00 - 0.50 [facility] Comment on above: Performed By: #### 2 53029 ####[facility],[address] [place], [place] [address] Eosinophils/100 leukocytes 1.2 % Normal 0.0 - 7.0 [facility] Comment on above: Performed By: #### 2 98322 ####[facility],[address] [place], [place] [address] Erythrocyte distribution width Auto Ratio (RBC) 14.5 % Normal 12.0 - 15.6 [facility] Comment on above: Performed By: #### 2 57857 ####[facility],[address] [place], [place] [address] Erythrocytes (RBC) 6.19 x 10EE6/UL High 4.50 - 6.00 [facility] Comment on above: Performed By: #### 2 05376 ####[facility],[address] [place], [place] [address] Hematocrit (HCT) 50.5 % Normal 40.0 - 52.0 [facility] Comment on above: Performed By: #### 2 51325 ####[facility],[address] [place] [address] Hemoglobin mass conc (Bld) 17.7 g/dL High 13.0 - 17.5 [facility] Comment on above: Performed By: #### 2 56961 ####[facility],[address] [place] [address] Lymphocytes 1.20 x10EE3/UL Normal 0.80 - 2.80 [facility] Comment on above: Performed By: #### 2 68424 ####[facility],[address] [place] [address] Lymphocytes/100 leukocytes 20.2 % Normal 20.0 - 45.0 [facility] Comment on above: Performed By: #### 2 37701 ####[facility],[address] [place] [address] MANUAL DIFF N/A Normal [facility] Comment on above: Performed By: #### 2 48186 ####[facility],[address] [place] [address] MCH 29 pg Normal 27 - 33 [facility] Comment on above: Performed By: #### 2 84165 ####[facility],[address] [place], [place] [id number] MCHC mass conc (RBC) 35 X10 3 Normal 32 - 36 [facility] Comment on above: Performed By: #### 2 17331 ####[facility],[address] [place], [place] [address] MCV 82 fL Normal 81 - 98 [facility] Comment on above: Performed By: #### 2 61046 ####[facility],[address] [place] [address] Monocytes 0.50 x10EE3/UL Normal 0.20 - 1.00 [facility] Comment on above: Performed By: #### 2 05211 ####[facility],[address] [place] [address] MONOS % 8.3 % Normal 0.0 - 10.0 [facility] Comment on above: Performed By: #### 2 97580 ####[facility],[address] [place] [address] Neutrophils 4.30 x10EE3/UL Normal 1.50 - 7.10 [facility] Comment on above: Performed By: #### 2 39400 ####[facility],[address] [place] [address] Neutrophils/100 WBC Auto (Bld) 69.8 % Normal 46.0 - 76.0 [facility] Comment on above: Performed By: #### 2 34764 ####[facility],[address] [place] [address] Platelet mean volume (PMV) 9.4 fL Normal 6.4 - 10.5 [facility] Comment on above: Result Comment: AUTO MATED DIFFERENTIAL Performed By: #### 2 60294 ####[facility],[address] [place] [address] Platelets 137 x10EE3/UL Low 150 - 450 [facility] Comment on above: Performed By: #### 2 21764 ####[facility],[address] [place] [address] WBC (Leukocytes) 6.2 x 10EE3/UL Normal 4.5 - 10.8 [facility] Comment on above: Performed By: #### 2 58140 ####[facility],[address] [place], [place] [id number] CHEST 1 VIEWon 10-30-2017 CHEST 1 VIEW [place] [address] Patient: LAZARO GARZON Phone#: : 1955 Age: 62 Gender: M Pt. Type: ER Account: [id number] Location: [facility] Ordering: JAGJIT SOUZA Exam Date: 10/30/2017/9:06 Family Phys: Charge Code: [id number] Physician: Cass Order #: [id number] DLP Dose#: PROCEDURE: X-RAY CHEST 1 VIEW [...] Samayoa MD on 10/30/2017 at 9:28 Normal [facility] CMP with eGFRon 10-30-2017 Age 62 years Normal [facility] Comment on above: Performed By: #### 2 52657 ####[place] [address] Albumin 4.4 g/dL Normal 3.4 - 4.8 [facility] Comment on above: Performed By: #### 2 92692 ####[address] [address] Albumin/Globulin Ratio 1.9 {ratio} High 0.9 - 1.6 [facility] Comment on above: Performed By: #### 2 66016 ####[address] [address] ALK PHOS 55 U/L Normal 38 - 126 [facility] Comment on above: Performed By: #### 2 54643 ####[address] [address] ALT/SGPT 19 U/L Normal 10 - 40 [facility] Comment on above: Performed By: #### 2 52592 ####[address] [address] Anion gap 12 mmol/L Normal 10 - 20 [facility] Comment on above: Performed By: #### 2 40893 ####[facility],[address] [place] [address] AST/SGOT 16 U/L Normal 13 - 39 [facility] Comment on above: Performed By: #### 2 19448 ####[facility],[address] [place] [address] B/C RATIO 15 ratio Normal 0 - 30 [facility] Comment on above: Performed By: #### 2 21096 ####[facility],[address] [place] [address] Bilirubin (total) 1.0 mg/dL Normal 0.0 - 1.5 [facility] Comment on above: Performed By: #### 2 10201 ####[facility],[address] [place] [address] Calcium 9.5 mg/dL Normal 8.6 - 10.2 [facility] Comment on above: Performed By: #### 2 31156 ####[facility],[address] [place] [address] Chloride 103 mmol/L Normal 98 - 107 [facility] Comment on above: Performed By: #### 2 28495 ####[facility],[address] [place] [address] CO2 26.2 mmol/L Normal 21.0 - 31.0 [facility] Comment on above: Performed By: #### 2 04463 ####[facility],[address] [place] [address] Creatinine 1.1 mg/dL Normal 0.7 - 1.3 [facility] Comment on above: Performed By: #### 2 75255 ####[facility],[address] [place] [address] eGFR (non-black) Normal [facility] Comment on above: Result Comment: COMP REHENSIVE METABOLIC PANEL Performed By: #### 2 13177 ####[facility],[address] [place] [address] eGFR (non-black) mL/min/{1.73_m2} Normal 60 - 999 [facility] Comment on above: Performed By: #### 2 01135 ####[facility],[address] [place], [place] [id number] Result Comment: ACCO RDING TO THE NATIONAL KIDNEY DISEASE EDUCATION PROGRAM(NKDE), A NORMAL eGFRIS A VALUE GREATER THAN OR EQUAL TO 60 ML/MIN/1.73 SQ METERS.CHRONIC KIDNEY DISEASE: <60mL/MIN/1.73 SQ METERSKIDNEY FAILURE: <15mL/MIN/1.73 SQ METERSTHIS TEST SHOULD ONLY BE USED FOR PATIENTS 18 YEARS OF AGE AND OLDER. Globulin 2.3 g/dL Normal 1.5 - 3.8 [facility] Comment on above: Performed By: #### 2 59056 ####[facility],[address] [place] [address] Glucose mass conc 109 mg/dL High 74 - 106 [facility] Comment on above: Performed By: #### 2 03659 ####[place] [id number] Potassium molar conc 3.5 mmol/L Normal 3.5 - 5.1 [facility] Comment on above: Performed By: #### 2 48634 ####[place] [id number] Protein 6.7 g/dL Normal 6.4 - 8.3 [facility] Comment on above: Performed By: #### 2 67965 ####[place] [id number] Sodium 138 mmol/L Normal 136 - 145 [facility] Comment on above: Performed By: #### 2 07825 ####[place] [id number] Urea nitrogen 16 mg/dL Normal 6 - 20 [facility] Comment on above: Performed By: #### 2 65698 ####[facility],[address] [place] [address] D-DIMER, QUANTITATIVEon 10-17 D-DIMER QUANT 187 ng/ml Normal 0 - 230 [facility] Comment on above: Performed By: #### 2 49164 ####[facility],[address] [place] [address] D-DIMER, QUANTITATIVE Normal [facility] Comment on above: Result Comment: LIN T D-DIMER Performed By: #### 2 73440 ####[facility],[address] [place], [place] [id number] MAGNESIUMon 10-30-2017 Magnesium 2.0 mg/dL Normal 1.6 - 2.6 [facility] Comment on above: Performed By: #### 2 77405 ####[facility],[address] [place] [address] PROTHROMBIN TIME AND INRon 0 10-30-2017 INR Coag RelTime (Bld) Normal [facility] Comment on above: Result Comment: PROT HROMBIN TIME AND INR Performed By: #### 2 99908 ####[facility],[address] [place] [address] INR Coag RelTime (PPP) 1.1 {INR} Normal 0.8 - 1.2 [facility] Comment on above: Result Comment: T HE [...] MECHANICAL HEART VALVES Performed By: #### 2 13039 ####[facility],[address] [place], [place] [address] PT-COUMADIN 12.1 sec Normal [facility] Comment on above: Performed By: #### 2 25523 ####[place] [address] TROPONINon 10-30-2017 Troponin I.cardiac mass conc ng/mL Normal 0.00 - 0.05 [facility] Comment on above: Result Comment: Elev ated [...] as heterophile antibodies). Performed By: #### 2 28274 ####[place] [address] Troponin I.cardiac mass conc 0.01 ng/mL Normal 0.00 - 0.05 [facility] Comment on above: Result Comment: Elev ated [...] as heterophile antibodies). Performed By: #### 2 00888 ####[facility],[address] [place], [place] [address] Lab Report: Lipid Profileon 07-18-2017 Cholesterol 88 mg/dL Invalid Interpretation Code 200 [facility] Work Phone: [phone] HDL Cholesterol 30 mg/dL Low [employer] Work Phone: [phone] LDL Cholesterol 30 mg/dL Invalid Interpretation Code 0-130 [facility] Work Phone: [phone] Triglyceride 138 mg/dL Invalid Interpretation Code [employer] Work Phone: [phone] low density lipoproteins 28 mg/dL Invalid Interpretation Code 5-40 [facility] Phone: [phone] Lab Report: Liver Profileon 07-18-2017 Alanine aminotransferase (ALT) 32 U/L Invalid Interpretation Code 16-61 [facility] Phone: [phone] Albumin 3.4 g/dL Invalid Interpretation Code 3.2-5.0 [employer] Work Phone: [phone] Alkaline phosphatase (ALP) 59 U/L Invalid Interpretation Code 45-117 [facility] Phone: [phone] Aspartate aminotransferase (AST) 27 U/L Invalid Interpretation Code 15-37 [facility] Phone: [phone] Bilirubin (direct) 0.16 mg/dL Invalid Interpretation Code 0.00-0.30 [facility] Phone: [phone] Bilirubin (total) 0.70 mg/dL Invalid Interpretation Code 0.20-1.00 [facility] Phone: [phone] Globulin 3.3 g/dL Invalid Interpretation Code 2.2-4.2 [facility] Phone: [phone] Protein 6.7 g/dL Invalid Interpretation Code 6.4-8.2 [facility] Phone: [phone] Office Visiton 12-14-2016 Documentation of current medications (procedure) Done Invalid Interpretation Code [facility] Phone: [phone] Fall risk assessment No Invalid Interpretation Code [facility] Phone: [phone] Protein mass conc Done [facility] Phone: [phone] Replaced Document: Alexa Zaragoza CG Observationson 08-17-2016 EKG QRS axis -44 deg [facility] Phone: [phone] electrocardiogram interpretation Sinus Rhythm -Left axis -anterior fascicular block. ABNORMAL Invalid Interpretation Code [facility] Phone: [phone] GE use only - for [employer] import when terms are not otherwise specified 395 ms Invalid Interpretation Code [facility] Phone: [phone] Interpretation Sinus Rhythm -Left a xis -anterior fascicular block. ABNORMAL [facility] [employer] Work Phone: [phone] P [place] 53 deg [facility] Work Phone: [phone] P wave axis, electrocardiogram 53 deg Invalid Interpretation Code [facility] [employer] Work Phone: [phone] RI Interval 218 ms [facility] Work Phone: [phone] RI interval, electrocardiogram 218 ms Invalid Interpretation Code [facility] [employer] Work Phone: [phone] Pulse (Heart Rate) 80 /min Invalid Interpretation Code [facility] [employer] Work Phone: [phone] QRS axis, electrocardiogram -44 deg Invalid Interpretation Code [facility] [employer] Work Phone: [phone] QRS Duration 93 ms [facility] [employer] Work Phone: [phone] QRS duration, electrocardiogram 93 ms Invalid Interpretation Code [facility] [employer] Work Phone: [phone] QT Interval new path ms [facility] [employer] Work Phone: [phone] QT interval, electrocardiogram new path ms Invalid Interpretation Code [facility] [employer] Work Phone: [phone] QTc Chou 395 ms [facility] [employer] Work Phone: [phone] T [place] 30 deg [facility] [employer] Work Phone: [phone] T wave axis, electrocardiogram 30 deg Invalid Interpretation Code [facility] [employer] Work Phone: [phone] 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 Left ventricular Ejection fraction 65 % Invalid Interpretation Code [facility] [employer] Work Phone: [phone] Office Visiton 01-04-2016 Dietary management education, guidance, and counseling (procedure) yes Invalid Interpretation Code [facility] [employer] Work Phone: [phone] Tobacco smoking status NHIS Tobacco smoking status NHIS Invalid Interpretation Code [facility] Work Phone: [phone] Tobacco smoking status NHIS Former smoker [facility] Work Phone: [phone] Lab Report: Lipid Profileon 04-18-2015 Cholesterol in HDL mass conc 31 mg/dL Low [facility] Work Phone: [phone] Cholesterol in LDL mass conc 27 mg/dL 0-130 [facility] Work Phone: [phone] Cholesterol mass conc 98 mg/dL [address] [facility] Work Phone: [phone] Lipoprotein.pre-beta mass conc 40 mg/dL 5-40 [facility] Work Phone: [phone] Triglyceride mass conc 200 mg/dL High [facility] Work Phone: [phone] Lab Report: Liver Profileon 04-18-2015 Albumin mass conc 4.1 g/dL 3.4-5.0 [facility] Work Phone: [phone] ALP enzyme act/vol (Bld) 85 U/L 50-136 [facility] Work Phone: [phone] ALT enzyme act/vol 39 U/L 12-78 [facility] Work Phone: [phone] AST enzyme act/vol 23 U/L 15-37 [facility] Work Phone: [phone] Bilirubin mass conc 1.20 mg/dL High 0.20-1.[address] [facility] Work Phone: [phone] Bilirubin.direct mass conc 0.25 mg/dL 0.00-0.30 [facility] [employer] Work Phone: [phone] Globulin mass conc (S) 3.0 g/dL 2.3-3.5 [facility] [employer] Work Phone: [phone] Protein mass conc 7.1 g/dL 6.4-8.2 [facility] [employer] Work Phone: [phone]) Lab Report: PSA,Total- Diagn osticon 04-18-2015 prostate specific antigen, total 2.47 ng/mL Invalid Interpretation Code 0.0-4.0 [facility] Work Phone: [phone] Protein mass conc 2.47 ng/mL 0.0-4.0 [facility] [employer] Work Phone: [phone]) Lab Report: T4 Total, Thyrox inon 04-18-2015 T4 mass conc 9.6 ug/dL Invalid Interpretation Code 4.5-12.1 [facility] [employer] Work Phone: [phone]) Lab Report: Thyroid Stim Hor madeleine (TSH)on 04-18-2015 Thyrotropin Qn 1.26 u[iU]/mL Invalid Interpretation Code 0.358-3.74 [facility] [employer] Work Phone: [phone] Lab Report: BNP,B-Type NATRI URETIC PEPTIDEon 01-08-2015 Natriuretic peptide B mass conc (Bld) 17.5 pg/mL Invalid Interpretation Code 0-100 [facility] [employer] Work Phone: [phone] Office Visiton 09-22-2014 cardiac risk group C Invalid Interpretation Code [facility] [employer] Work Phone: [phone] General cardiovascular disease 10Y risk [#] [place].D'Agostdanny N/A Invalid Interpretation Code [facility] [employer] Work Phone: [phone]) 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 Cholesterol in LDL/Cholesterol in HDL mass ratio 1.41 Invalid Interpretation Code [facility] [employer] Work Phone: [phone] Cholesterol.total/Cho lesterol in HDL mass ratio 3.33 {ratio} Invalid Interpretation Code [facility] [employer] Work Phone: [phone] Lab Report: BMPon 12-04-2013 Anion gap 6 mmol/L Normal 5-15 [facility] [employer] Work Phone: [phone] Anion gap molar conc 6 mmol/L Normal 5-[address] [facility] [employer] Work Phone: [phone] Calcium mass conc 9.1 mg/dL Normal 8.5-10.1 [facility] [employer] Work Phone: [phone] Chloride molar conc 105 mmol/L Normal 98-[address] [facility] [employer] Work Phone: [phone] CO2 29.0 mmol/L Normal 21.0-32.0 [facility] [employer] Work Phone: [phone] CO2 ppres (BldV) 29.0 mmol/L Normal 21.0-32.0 [facility] [employer] Work Phone: [phone] Creatinine mass conc 1.2 mg/dL Normal 0.8-1.[address] [facility] [employer] Work Phone: [phone] eGFR (non-black) 81 mL/min/{1.73_m2} Normal >60 [facility] Work Phone: [phone] GFR/1.73 sq M predicted among non-blacks MDRD vol rate/area (S/P/Bld) 67 mL/min/{1.73_m2} Normal >60 [facility] Work Phone: [phone] GFRAA 81 mL/min Normal >60 [facility] Work Phone: [phone] Glucose 89 mg/dL Normal 70-110 [facility] Work Phone: [phone] Glucose mass conc 89 mg/dL Normal 70-110 [facility] Work Phone: [phone] Potassium molar conc 4.2 mmol/L Normal 3.5-5.1 [facility] Work Phone: [phone] Sodium molar conc 140 mmol/L Normal 136-145 [facility] Work Phone: [phone] Urea nitrogen mass conc 17 mg/dL Normal 7-18 [facility] Work Phone: [phone] Urea nitrogen/Creatinine mass ratio 14.2 RATIO Normal 10-20 [facility] Work Phone: [phone] Lab Report: CBCon 12-04-2013 Erythrocytes (RBC) 5.61 10*6/uL Normal 4.6-6.2 [facility] Work Phone: [phone] Hematocrit (HCT) 47.4 % Normal 40-54 [facility] Work Phone: [phone] Hematocrit Volume Fraction (Bld) 47.4 % Normal 40-54 [facility] Work Phone: [phone] Hemoglobin mass conc (Bld) 16.7 g/dL High 13.0-16.5 [facility] Work Phone: [phone] MCH 29.8 pg Normal 27.0-32.0 [facility] Work Phone: [phone] MCH Entitic mass (RBC) 29.8 pg Normal 27.0-32.0 [facility] Work Phone: [phone] MCHC 35.2 G/GL Normal 32-36 [facility] Work Phone: [phone] MCHC mass conc (RBC) 35.2 G/GL Normal 32-36 [facility] Work Phone: [phone] MCV 84.5 fL Normal 80-94 [facility] Work Phone: [phone] MCV Entitic volume (RBC) 84.5 fL Normal 80-94 [facility] Work Phone: [phone] Platelet mean volume Entitic volume (Bld) 11.5 fL Normal 6.2-12.0 [facility] Work Phone: [phone] Platelets 123 10*3/mm3 Low 150-450 [facility] Work Phone: [phone] Platelets #/vol (Bld) 123 10*3/mm3 Low 150-450 [facility] Work Phone: [phone] PMV by Gil 11.5 fL Normal 6.2-12.0 [facility] Work Phone: [phone] RBC #/vol (Bld) 5.61 10*6/uL Normal 4.6-6.2 [facility] Work Phone: [phone] WBC #/vol (Bld) 6.4 10*3/uL Normal 4.4-11.0 [facility] Work Phone: [phone] WBC (Leukocytes) 6.4 10*3/uL Normal 4.4-11.0 [facility] Work Phone: [phone] Lab Report: PTon 12-04-2013 INR Coag RelTime (PPP) 1.6 {INR} Normal [facility] Work Phone: [phone] INR in blood by coagulation 1.6 {INR} Normal [facility] Work Phone: [phone] prothrombin time, actual/normal, ratio 18.2 SECONDS High 11.9-14.4 [facility] Work Phone: [phone] PTP 18.2 SECONDS High 11.9-14.4 [facility] Work Phone: [phone] Replaced Document: Alexa ROCA Observationson 10-30-2013 Pulse (Heart Rate) 396 ms Invalid Interpretation Code [facility] Work Phone: [phone] Lab Report: Ordered by Dr. Nik alfaro 09-20-2012 Erythrocyte distribution width Ratio (RBC) 13.4 % [facility] Work Phone: [phone] MCHC 35.5 % Invalid Interpretation Code [facility] Work Phone: [phone] MCHC mass conc (RBC) 35.5 % [facility] Work Phone: [phone] RDW-CA 13.4 % Invalid Interpretation Code [facility] Work Phone: [phone] Lab Report: PTTon 09-03-2012 aPTT Coag time (Bld) 28.8 s Normal 24.1-36.[address] [facility] Work Phone: [phone] Office Visiton 07-18-2012 Alcoholism counseling (procedure) no Invalid Interpretation Code [facility] Work Phone: [phone] Protein mass conc no [facility] Work Phone: [phone] Vital Signs Date Time Vital Sign Value Performing Clinician Darren campoverde 12-31-2024 08:48-0400 Body height 193 cm Yesica Bacon WET PLANT OPERATOR.BIOSOLIDS MANAGEMENT TECHNICIAN Work Phone: [facility] 12-31-2024 08:48-0400 Body mass index (BMI) [Ratio] 39.58 kg/m2 Yesica Mendiolair WET PLANT OPERATOR.BIOSOLIDS MANAGEMENT TECHNICIAN Work Phone: [facility] 12-31-2024 08:48-0400 Body temperature 97.59 [degF] Yesica Meliton WET PLANT OPERATOR.BIOSOLIDS MANAGEMENT TECHNICIAN Work Phone: [facility] 12-31-2024 08:48-0400 Body weight 147.42 kg Yesica Mendiolair WET PLANT OPERATOR.BIOSOLIDS MANAGEMENT TECHNICIAN Work Phone: [facility] 12-31-2024 08:48-0400 Diastolic blood pressure 83 mm[Hg] Yesica Meliton WET PLANT OPERATOR.BIOSOLIDS MANAGEMENT TECHNICIAN Work Phone: [facility] 12-31-2024 08:48-0400 Heart rate 79 /min Yesica Mendiolair WET PLANT OPERATOR.BIOSOLIDS MANAGEMENT TECHNICIAN Work Phone: [facility] 12-31-2024 08:48-0400 SaO2% (BldA) [Mass fraction] 99 % Yesica Mendiolair WET PLANT OPERATOR.BIOSOLIDS MANAGEMENT TECHNICIAN Work Phone: [facility] 12-31-2024 08:48-0400 Systolic blood pressure 141 mm[Hg] Yesica Bacon [place] Work Phone: [facility] 12-24-2024 13:56-0400 Body mass index (BMI) [Ratio] 38.54 kg/m2 Jagjit Cheema MD Work Phone: [facility] 12-24-2024 13:56-0400 Body weight 147.42 kg Jagjit Cheema MD Work Phone: [facility] 12-24-2024 13:56-0400 Diastolic blood pressure 72 mm[Hg] Jagjit Cheema MD Work Phone: [facility] 12-24-2024 13:56-0400 Heart rate 86 /min Jagjit Cheema MD Work Phone: [facility] 12-24-2024 13:56-0400 SaO2% (BldA) [Mass fraction] 97 % Jagjit Cheema MD Work Phone: [facility] 12-24-2024 13:56-0400 Systolic blood pressure 140 mm[Hg] Jagjit Cheema MD Work Phone: [facility] 11-28-2024 10:11-0400 Body height 195.[address] Jagjit Cheema MD Work Phone: [facility] 11-28-2024 10:11-0400 Body mass index (BMI) [Ratio] 39.4 kg/m2 Dr. Jagjit Cheema MD Work Phone: [facility] 11-28-2024 10:11-0400 Body weight 151.[address] Jagjit Cheema MD Work Phone: [facility] 11-28-2024 10:11-0400 Diastolic blood pressure 91 mm[Hg] Dr. Jagjit Cheema MD Work Phone: [facility] 11-28-2024 10:11-0400 Heart rate 69 /min Dr. Jagjit Cheema MD Work Phone: [facility] 11-28-2024 10:11-0400 Respiratory rate 18 /min Dr. Jagjit Cheema MD Work Phone: 2(430)785-197256 [place] [address] 11-28-2024 10:11-0400 Systolic blood pressure 167 mm[Hg] Dr. Jagjit Cheema MD Work Phone: 4(808)101-385456 [place] [address] 11-20-2024 14:20-0400 Body temperature 97.9 [degF] Dr. Jagjit Cheema MD Work Phone: 9(256)862-802156 [place] [address] 11-20-2024 14:20-0400 Diastolic blood pressure 88 mm[Hg] Dr. Jagjit Cheema MD Work Phone: 5(356)931-686556 [place] [address] 11-20-2024 14:20-0400 Heart rate 75 /min Dr. Jagjit Cheema MD Work Phone: 6(775)222-006256 [place] [address] 11-20-2024 14:20-0400 Respiratory rate 16 /min Dr. Jagjit Cheema MD Work Phone: 2(977)729-973456 [place] [address] 11-20-2024 14:20-0400 SaO2% (BldA) [Mass fraction] 97 % Dr. Jagjit Cheema MD Work Phone: 8(897)437-972156 [place] [address] 11-20-2024 14:20-0400 Systolic blood pressure 146 mm[Hg] Dr. Jagjit Cheema MD Work Phone: 2(072)616-542456 [place] [address] 11-20-2024 10:26-0400 Body height 195.[address] Jagjit Cheema MD Work Phone: 0(114)383-749356 [place] [address] 11-20-2024 10:26-0400 Body mass index (BMI) [Ratio] 40.1 kg/m2 Dr. Jagjit Cheema MD Work Phone: 1(049)173-167356 [place] [address] 11-20-2024 10:26-0400 Body weight 153.[address] Jagjit Cheema MD Work Phone: 5(279)173-475456 [place] [address] 11-18-2024 11:23-0400 Body temperature 99.19 [degF] Susan Kerr APRN.BIOSOLIDS MANAGEMENT TECHNICIAN Work Phone: 3(735)424-396037 [place] [address] 11-18-2024 11:23-0400 Diastolic blood pressure 80 mm[Hg] Susan Kerr APRN.BIOSOLIDS MANAGEMENT TECHNICIAN Work Phone: 5(951)095-624037 [place] [address] 11-18-2024 11:23-0400 Heart rate 72 /min Susan Haagen WET PLANT OPERATOR.BIOSOLIDS MANAGEMENT TECHNICIAN Work Phone: [facility] 11-18-2024 11:23-0400 Respiratory rate 16 /min Susan Kerr WET PLANT OPERATOR.BIOSOLIDS MANAGEMENT TECHNICIAN Work Phone: [facility] 11-18-2024 11:23-0400 SaO2% (BldA) [Mass fraction] 95 % Susan Haagen WET PLANT OPERATOR.BIOSOLIDS MANAGEMENT TECHNICIAN Work Phone: [facility] 11-18-2024 11:23-0400 Systolic blood pressure 158 mm[Hg] Susan Haagen WET PLANT OPERATOR.BIOSOLIDS MANAGEMENT TECHNICIAN Work Phone: [facility] 10-28-2024 13:21-0400 Body temperature 97 [degF] Dr. Jagjit Cheema MD Work Phone: 4(969)264-490651 [place] [address] 10-28-2024 13:21-0400 Diastolic blood pressure 83 mm[Hg] Dr. Jagjit Cheema MD Work Phone: 5(469)700-024251 [place] [address] 10-28-2024 13:21-0400 Heart rate 66 /min Dr. Jagjit Cheema MD Work Phone: 6(411)263-325151 [place] [address] 10-28-2024 13:21-0400 Respiratory rate 24 /min Dr. Jagjit Cheema MD Work Phone: 3(215)137-803251 [place] [address] 10-28-2024 13:21-0400 SaO2% (BldA) [Mass fraction] 97 % Dr. Jagjit Cheema MD Work Phone: 6(962)986-964251 [place] [address] 10-28-2024 13:21-0400 Systolic blood pressure 156 mm[Hg] Dr. Jagjit Cheema MD Work Phone: 6(855)922-008751 [place] [address] 10-28-2024 09:36-0400 Body height 195.[address] Jagjit Cheema MD Work Phone: 8(697)534-141251 [place] [address] 10-28-2024 09:36-0400 Body mass index (BMI) [Ratio] 40.4 kg/m2 Dr. Jagjit Cheema MD Work Phone: 7(339)222-818351 [place] [address] 10-28-2024 09:36-0400 Body weight 154.[address] Jagjit Cheema MD Work Phone: [facility] 10-21-2024 09:24-0400 Diastolic blood pressure 70 mm[Hg] Jagjit Cheema MD Work Phone: [facility] 10-21-2024 09:24-0400 Systolic blood pressure 138 mm[Hg] Jagjit Cheema MD Work Phone: [facility] 10-21-2024 08:41-0400 Body height 195.6 cm Jagjit Cheema MD Work Phone: [facility] 10-21-2024 08:41-0400 Body mass index (BMI) [Ratio] 39.73 kg/m2 Jagjit Cheema MD Work Phone: [facility] 10-21-2024 08:41-0400 Body weight 151.96 kg Jagjit Cheema MD Work Phone: [facility] 10-21-2024 08:41-0400 Heart rate 78 /min Jagjit Cheema MD Work Phone: [facility] 10-21-2024 08:41-0400 SaO2% (BldA) [Mass fraction] 98 % Jagjit Cheema MD Work Phone: [facility] 09-23-2024 09:40-0400 Body mass index (BMI) [Ratio] 39.73 kg/m2 Jagjit Cheema MD Work Phone: [facility] 09-23-2024 09:40-0400 Body weight 151.96 kg Jagjit Cheema MD Work Phone: [facility] 09-23-2024 09:40-0400 Diastolic blood pressure 78 mm[Hg] Jagjit Cheema MD Work Phone: [facility] 09-23-2024 09:40-0400 Heart rate 82 /min Jagjit Cheema MD Work Phone: [facility] 09-23-2024 09:40-0400 SaO2% (BldA) [Mass fraction] 97 % aJgjit Cheema MD Work Phone: [facility] 09-23-2024 09:40-0400 Systolic blood pressure 170 mm[Hg] Jagjit Cheema MD Work Phone: [facility] 09-11-2024 08:25-0400 Body height 195.6 cm Jagjit Cheema MD Work Phone: [facility] 09-11-2024 08:25-0400 Body mass index (BMI) [Ratio] 39.73 kg/m2 Jagjit Cheema MD Work Phone: [facility] 09-11-2024 08:25-0400 Body weight 151.96 kg Jagjit Cheema MD Work Phone: [facility] 09-11-2024 08:25-0400 Diastolic blood pressure 70 mm[Hg] Jagjit Cheema MD Work Phone: [facility] 09-11-2024 08:25-0400 Heart rate 77 /min Jagjit Cheema MD Work Phone: [facility] 09-11-2024 08:25-0400 SaO2% (BldA) [Mass fraction] 99 % Jagjit Cheema MD Work Phone: [facility] 09-11-2024 08:25-0400 Systolic blood pressure 148 mm[Hg] Jagjit Cheema MD Work Phone: [facility] 08-16-2024 10:33-0500 Body mass index (BMI) [Ratio] 39.1 kg/m2 Dr. Jagjit Cheema MD Work Phone: [facility] 08-16-2024 10:33-0500 Body weight 149.[address] Jagjit Cheema MD Work Phone: [facility] 08-16-2024 10:33-0500 Diastolic blood pressure 84 mm[Hg] Dr. Jagjit Cheema MD Work Phone: [facility] 08-16-2024 10:33-0500 Heart rate 72 /min Dr. Jagjit Cheema MD Work Phone: [facility] 08-16-2024 10:33-0500 Respiratory rate 16 /min Dr. Jagjit Cheema MD Work Phone: [facility] 08-16-2024 10:33-0500 Systolic blood pressure 148 mm[Hg] Dr. Jagjit Cheema MD Work Phone: [facility] 07-08-2024 09:34-0500 Diastolic blood pressure 80 mm[Hg] Jagjit Cheema MD Work Phone: [facility] 07-08-2024 09:34-0500 Systolic blood pressure 136 mm[Hg] Jagjit Cheema MD Work Phone: [facility] 07-08-2024 09:06-0500 Body height 195.6 cm Jagjit Cheema MD Work Phone: [facility] 07-08-2024 09:06-0500 Body mass index (BMI) [Ratio] 39.13 kg/m2 Jagjit Cheema MD Work Phone: [facility] 07-08-2024 09:06-0500 Body weight 149.69 kg Jagjit Cheema MD Work Phone: [facility] 07-08-2024 09:06-0500 Heart rate 87 /min Jagjit Cheema MD Work Phone: [facility] 06-24-2024 09:03-0500 Body mass index (BMI) [Ratio] 39.13 kg/m2 Jagjit Cheema MD Work Phone: [facility] 06-24-2024 09:03-0500 Body temperature 97.2 [degF] Jagjit Cheema MD Work Phone: [facility] 06-24-2024 09:03-0500 Body weight 149.69 kg Jagjit Cheema MD Work Phone: [facility] 06-24-2024 09:03-0500 Diastolic blood pressure 72 mm[Hg] Jagjit Cheema MD Work Phone: [facility] 06-24-2024 09:03-0500 Heart rate 88 /min Jagjit Cheema MD Work Phone: [facility] 06-24-2024 09:03-0500 SaO2% (BldA) [Mass fraction] 98 % Jagjit Cheema MD Work Phone: [facility] 06-24-2024 09:03-0500 Systolic blood pressure 140 mm[Hg] Jagjit Cheema MD Work Phone: [facility] 06-17-2024 14:22-0500 Body mass index (BMI) [Ratio] 39.73 kg/m2 Jagjit Cheema MD Work Phone: [facility] 06-17-2024 14:22-0500 Body temperature 100.09 [degF] Jagjit Cheema MD Work Phone: [facility] 06-17-2024 14:22-0500 Body weight 151.96 kg Jagjit Cheema MD Work Phone: [facility] 06-17-2024 14:22-0500 Diastolic blood pressure 92 mm[Hg] Jagjit Cheema MD Work Phone: [facility] 06-17-2024 14:22-0500 Heart rate 79 /min Jagjit Cheema MD Work Phone: [facility] 06-17-2024 14:22-0500 SaO2% (BldA) [Mass fraction] 99 % Jagjit Cheema MD Work Phone: [facility] 06-17-2024 14:22-0500 Systolic blood pressure 152 mm[Hg] Jagjit Cheema MD Work Phone: [facility] 06-13-2024 15:51-0500 Body mass index (BMI) [Ratio] 40.02 kg/m2 Carolann Lucas APRN.BIOSOLIDS MANAGEMENT TECHNICIAN Work Phone: [facility] 06-13-2024 15:51-0500 Body temperature 97.7 [degF] Carolann Lucas WET PLANT OPERATOR.BIOSOLIDS MANAGEMENT TECHNICIAN Work Phone: [facility] 06-13-2024 15:51-0500 Body weight 153.1 kg Carolann Lucas WET PLANT OPERATOR.BIOSOLIDS MANAGEMENT TECHNICIAN Work Phone: [facility] 06-13-2024 15:51-0500 Diastolic blood pressure 74 mm[Hg] Carolann Lucas WET PLANT OPERATOR.BIOSOLIDS MANAGEMENT TECHNICIAN Work Phone: [facility] 06-13-2024 15:51-0500 Heart rate 90 /min Carolann Lnace WET PLANT OPERATOR.BIOSOLIDS MANAGEMENT TECHNICIAN Work Phone: [facility] 06-13-2024 15:51-0500 Respiratory rate 16 /min Carolann Lance WET PLANT OPERATOR.BIOSOLIDS MANAGEMENT TECHNICIAN Work Phone: [facility] 06-13-2024 15:51-0500 SaO2% (BldA) [Mass fraction] 97 % Carolann Lnace WET PLANT OPERATOR.BIOSOLIDS MANAGEMENT TECHNICIAN Work Phone: [facility] 06-13-2024 15:51-0500 Systolic blood pressure 136 mm[Hg] Carolann Lance WET PLANT OPERATOR.BIOSOLIDS MANAGEMENT TECHNICIAN Work Phone: [facility] 04-25-2024 13:18-0500 Body mass index (BMI) [Ratio] 39.48 kg/m2 Lisa Podlogar WET PLANT OPERATOR.BIOSOLIDS MANAGEMENT TECHNICIAN Work Phone: [facility] 04-25-2024 13:18-0500 Body weight 151 kg Lisa Podlogar WET PLANT OPERATOR.BIOSOLIDS MANAGEMENT TECHNICIAN Work Phone: [facility] 04-25-2024 13:18-0500 Diastolic blood pressure 78 mm[Hg] Lisa Podlogar WET PLANT OPERATOR.BIOSOLIDS MANAGEMENT TECHNICIAN Work Phone: [facility] 04-25-2024 13:18-0500 Heart rate 78 /min Lisa Podlogar WET PLANT OPERATOR.BIOSOLIDS MANAGEMENT TECHNICIAN Work Phone: [facility] 04-25-2024 13:18-0500 SaO2% (BldA) [Mass fraction] 97 % Lisa Podlogar WET PLANT OPERATOR.BIOSOLIDS MANAGEMENT TECHNICIAN Work Phone: [facility] 04-25-2024 13:18-0500 Systolic blood pressure 140 mm[Hg] Lisa Podlogar WET PLANT OPERATOR.BIOSOLIDS MANAGEMENT TECHNICIAN Work Phone: [facility] 04-10-2024 11:23-0400 Body mass index (BMI) [Ratio] 38.99 kg/m2 Rojas Dominguez MD Work Phone: [facility] 04-10-2024 11:23-0400 Body temperature 97.7 [degF] Rojas Dominguez MD Work Phone: [facility] 04-10-2024 11:23-0400 Body weight 149.14 kg Rojas Dominguez MD Work Phone: [facility] 04-10-2024 11:23-0400 Diastolic blood pressure 72 mm[Hg] Rojas Dominguez MD Work Phone: [facility] 04-10-2024 11:23-0400 Heart rate 73 /min Rojas Dominguez MD Work Phone: [facility] 04-10-2024 11:23-0400 Respiratory rate 18 /min Rojas Dominguez MD Work Phone: [facility] 04-10-2024 11:23-0400 SaO2% (BldA) [Mass fraction] 98 % Rojas Dominguez MD Work Phone: [facility] 04-10-2024 11:23-0400 Systolic blood pressure 130 mm[Hg] Rojas Dominguez MD Work Phone: [facility] 03-13-2024 09:03-0400 Body mass index (BMI) [Ratio] 39.01 kg/m2 Jagjit Cheema MD Work Phone: [facility] 03-13-2024 09:03-0400 Body weight 149.23 kg Jagjit Cheema MD Work Phone: [facility] 03-13-2024 09:03-0400 Diastolic blood pressure 72 mm[Hg] Jagjit Cheema MD Work Phone: [facility] 03-13-2024 09:03-0400 Heart rate 71 /min Jagjit Cheema MD Work Phone: [facility] 03-13-2024 09:03-0400 SaO2% (BldA) [Mass fraction] 98 % Jagjit Cheema MD Work Phone: [facility] 03-13-2024 09:03-0400 Systolic blood pressure 134 mm[Hg] Jagjit Cheema MD Work Phone: [facility] 03-08-2024 09:43-0400 Body mass index (BMI) [Ratio] 38.69 kg/m2 Jagjit Cheema MD Work Phone: [facility] 03-08-2024 09:43-0400 Body temperature 99.1 [degF] Jagjit Cheema MD Work Phone: [facility] 03-08-2024 09:43-0400 Body weight 148 kg Jagjit Cheema MD Work Phone: [facility] 03-08-2024 09:43-0400 Diastolic blood pressure 82 mm[Hg] Jagjit Cheema MD Work Phone: [facility] 03-08-2024 09:43-0400 Heart rate 77 /min Jagjit Cheema MD Work Phone: [facility] 03-08-2024 09:43-0400 SaO2% (BldA) [Mass fraction] 96 % Jagjit Cheema MD Work Phone: [facility] 03-08-2024 09:43-0400 Systolic blood pressure 148 mm[Hg] Jagjit Cheema MD Work Phone: [facility] 12-29-2023 08:00-0400 Body height 195.6 cm Jagjit Cheema MD Work Phone: [facility] 12-29-2023 08:00-0400 Body mass index (BMI) [Ratio] 38.9 kg/m2 Jagjit Cheema MD Work Phone: [facility] 12-29-2023 08:00-0400 Body weight 148.78 kg Jagjit Cheema MD Work Phone: [facility] 12-29-2023 08:00-0400 Diastolic blood pressure 78 mm[Hg] Jagjit Cheema MD Work Phone: [facility] 12-29-2023 08:00-0400 Heart rate 79 /min Jagjit Cheema MD Work Phone: [facility] 12-29-2023 08:00-0400 SaO2% (BldA) [Mass fraction] 97 % Jagjit Cheema MD Work Phone: [facility] 12-29-2023 08:00-0400 Systolic blood pressure 176 mm[Hg] Jagjit Cheema MD Work Phone: [facility] 12-13-2023 09:30-0400 Body temperature 98.71 [degF] Susan Haagen WET PLANT OPERATOR.BIOSOLIDS MANAGEMENT TECHNICIAN Work Phone: [facility] 12-13-2023 09:30-0400 Diastolic blood pressure 86 mm[Hg] Susan Haagen WET PLANT OPERATOR.BIOSOLIDS MANAGEMENT TECHNICIAN Work Phone: [facility] 12-13-2023 09:30-0400 Heart rate 64 /min Susan Hadeloris WET PLANT OPERATOR.BIOSOLIDS MANAGEMENT TECHNICIAN Work Phone: [facility] 12-13-2023 09:30-0400 Respiratory rate 16 /min Susan Kerr WET PLANT OPERATOR.BIOSOLIDS MANAGEMENT TECHNICIAN Work Phone: [facility] 12-13-2023 09:30-0400 SaO2% (BldA) [Mass fraction] 97 % Susan Kerr WET PLANT OPERATOR.BIOSOLIDS MANAGEMENT TECHNICIAN Work Phone: [facility] 12-13-2023 09:30-0400 Systolic blood pressure 140 mm[Hg] Susan Haagen WET PLANT OPERATOR.BIOSOLIDS MANAGEMENT TECHNICIAN Work Phone: [facility] 11-29-2023 14:10-0400 Diastolic blood pressure 84 mm[Hg] Jagjit Cheema MD Work Phone: [facility] 11-29-2023 14:10-0400 Systolic blood pressure 136 mm[Hg] Jagjit Cheema MD Work Phone: [facility] 11-29-2023 13:56-0400 Body mass index (BMI) [Ratio] 38.66 kg/m2 Jagjit Cheema MD Work Phone: [facility] 11-29-2023 13:56-0400 Body weight 147.87 kg Jagjit Cheema MD Work Phone: [facility] 11-29-2023 13:56-0400 Heart rate 78 /min Jagjit Cheema MD Work Phone: [facility] 11-29-2023 13:56-0400 SaO2% (BldA) [Mass fraction] 98 % Jagjit Cheema MD Work Phone: [facility] 10-16-2023 14:28-0400 Body height 195.[address] Jagjit Cheema Work Phone: [facility] 10-16-2023 14:28-0400 Body mass index (BMI) [Ratio] 39.2 kg/m2 Dr. Jagjit Cheema Work Phone: [facility] 10-16-2023 14:28-0400 Body weight 150.[address] Jagjit Cheema Work Phone: [facility] 10-16-2023 14:28-0400 Diastolic blood pressure 71 mm[Hg] Dr. Jagjit Cheema Work Phone: [facility] 10-16-2023 14:28-0400 Heart rate 66 /min Dr. Jagjit Cheema Work Phone: [facility] 10-16-2023 14:28-0400 Respiratory rate 16 /min Dr. Jagjit Cheema Work Phone: [facility] 10-16-2023 14:28-0400 Systolic blood pressure 147 mm[Hg] Dr. Jagjit Cheema Work Phone: [facility] 09-05-2023 16:04-0400 Body height 195.6 cm Jagjit Cheema MD Work Phone: [facility] 09-05-2023 16:04-0400 Body weight 151.05 kg Jagjit Cheema MD Work Phone: [facility] 09-05-2023 16:04-0400 Diastolic blood pressure 68 mm[Hg] Jagjit Cheema MD Work Phone: [facility] 09-05-2023 16:04-0400 Heart rate 72 /min Jagjit Cheema MD Work Phone: [facility] 09-05-2023 16:04-0400 SaO2% (BldA) [Mass fraction] 96 % Jagjit Cheema MD Work Phone: [facility] 09-05-2023 16:04-0400 Systolic blood pressure 138 mm[Hg] Jagjit Cheema MD Work Phone: [facility] 07-05-2023 13:02-0500 Body height 195.[address] Jagjit Cheema Work Phone: [facility] 07-05-2023 13:02-0500 Body mass index (BMI) [Ratio] 40.4 kg/m2 Dr. Jagjit Cheema Work Phone: [facility] 07-05-2023 13:02-0500 Body weight 154.[address] Jagjit Cheema Work Phone: [facility] 07-05-2023 13:02-0500 Diastolic blood pressure 71 mm[Hg] Dr. Jagjit Cheema Work Phone: [facility] 07-05-2023 13:02-0500 Heart rate 70 /min Dr. Jagjit Cheema Work Phone: [facility] 07-05-2023 13:02-0500 Respiratory rate 18 /min Dr. Jagjit Cheema Work Phone: [facility] 07-05-2023 13:02-0500 Systolic blood pressure 145 mm[Hg] Dr. Jagjit Cheema Work Phone: [facility] 01-23-2023 17:22-0400 Diastolic blood pressure 70 mm[Hg] Jagjit Cheema MD Work Phone: [facility] 01-23-2023 17:22-0400 Systolic blood pressure 138 mm[Hg] Jagjit Cheema MD Work Phone: [facility] 01-23-2023 16:52-0400 Body height 195.6 cm Jagjit Cheema MD Work Phone: [facility] 01-23-2023 16:52-0400 Body weight 148.96 kg Jagjit Cheema MD Work Phone: [facility] 01-23-2023 16:52-0400 Heart rate 64 /min Jagjit Cheema MD Work Phone: [facility] 01-23-2023 16:52-0400 SaO2% (BldA) [Mass fraction] 97 % Jagjit Cheema MD Work Phone: [facility] 12-19-2022 15:34-0400 Body height 195.6 cm Jagjit Cheema MD Work Phone: [facility] 12-19-2022 15:34-0400 Body weight 149.41 kg Jagjit Cheema MD Work Phone: [facility] 12-19-2022 15:34-0400 Diastolic blood pressure 68 mm[Hg] Jagjit Cheema MD Work Phone: [facility] 12-19-2022 15:34-0400 Heart rate 64 /min Jagjit Cheema MD Work Phone: [facility] 12-19-2022 15:34-0400 SaO2% (BldA) [Mass fraction] 97 % Jagjit Cheema MD Work Phone: [facility] 12-19-2022 15:34-0400 Systolic blood pressure 138 mm[Hg] Jagjit Cheema MD Work Phone: [facility] 12-16-2022 12:54-0400 Body temperature 98.2 [degF] Dr. Jagjit Cheema Work Phone: [facility] 12-16-2022 12:54-0400 Diastolic blood pressure 68 mm[Hg] Dr. Jagjit Cheema Work Phone: [facility] 12-16-2022 12:54-0400 Heart rate 68 /min Dr. Jagjit Cheema Work Phone: [facility] 12-16-2022 12:54-0400 Respiratory rate 18 /min Dr. Jagjit Cheema Work Phone: [facility] 12-16-2022 12:54-0400 SaO2% (BldA) [Mass fraction] 100 % Dr. Jagjit Cheema Work Phone: [facility] 12-16-2022 12:54-0400 Systolic blood pressure 131 mm[Hg] Dr. Jagjit Cheema Work Phone: 8(775)221-864851 [place] [address] 12-16-2022 06:00-0400 Body mass index (BMI) [Ratio] 38.2 kg/m2 Dr. Jagjit Cheema Work Phone: 8(710)369-737551 [place] [address] 12-16-2022 06:00-0400 Body weight 146.[address] Jagjit Cheema Work Phone: 8(208)180-233556 [place] [address] 12-15-2022 23:33-0400 Body height 195.[address] Jagjit Cheema Work Phone: 6(891)598-499256 [place] [address] 12-15-2022 23:00-0400 Body temperature 100.3 [degF] Dr. Jagjit Cheema Work Phone: 3(880)860-501956 [place] [address] 12-15-2022 23:00-0400 Diastolic blood pressure 68 mm[Hg] Dr. Jagjit Cheema Work Phone: 7(386)065-842056 [place] [address] 12-15-2022 23:00-0400 Heart rate 89 /min Dr. Jagjit Cheema Work Phone: 0(541)077-925551 [place] [address] 12-15-2022 23:00-0400 Respiratory rate 20 /min Dr. Jagjit Cheema Work Phone: 0(660)118-581556 [place] [address] 12-15-2022 23:00-0400 SaO2% (BldA) [Mass fraction] 97 % Dr. Jagjit Cheema Work Phone: 4(645)437-963856 [place] [address] 12-15-2022 23:00-0400 Systolic blood pressure 136 mm[Hg] Dr. Jagjit Cheema Work Phone: 4(223)608-929356 [place] [address] 12-15-2022 18:54-0400 Body height 195.[address] Jagjit Cheema Work Phone: 9(989)369-085256 [place] [address] 12-15-2022 18:54-0400 Body mass index (BMI) [Ratio] 38.8 kg/m2 Dr. Jagjit Cheema Work Phone: 5(171)888-550856 [place] [address] 12-15-2022 18:54-0400 Body weight 148.[address] Jagjit Cheema Work Phone: 9(436)764-897656 [place] [address] 12-14-2022 20:51-0400 Body temperature 98.4 [degF] Dr. Jagjit Cheema Work Phone: [facility] 12-14-2022 20:51-0400 Diastolic blood pressure 70 mm[Hg] Dr. Jagjit Cheema Work Phone: [facility] 12-14-2022 20:51-0400 Heart rate 78 /min Dr. Jagjit Cheema Work Phone: [facility] 12-14-2022 20:51-0400 Respiratory rate 16 /min Dr. Jagjit Cheema Work Phone: [facility] 12-14-2022 20:51-0400 SaO2% (BldA) [Mass fraction] 97 % Dr. Jagjit Cheema Work Phone: [facility] 12-14-2022 20:51-0400 Systolic blood pressure 136 mm[Hg] Dr. Jagjit Cheema Work Phone: [facility] 12-14-2022 16:47-0400 Body mass index (BMI) [Ratio] 38 kg/m2 Dr. Jagjit Cheema Work Phone: [facility] 12-14-2022 16:47-0400 Body weight 145.[address] Jagjit Cheema Work Phone: [facility] 12-14-2022 16:17-0400 Body temperature 100.9 [degF] Jagjit Cheema MD Work Phone: [facility] 12-14-2022 16:17-0400 Body weight 145.69 kg Jagjit Cheema MD Work Phone: [facility] 12-14-2022 16:17-0400 Diastolic blood pressure 60 mm[Hg] Jagjit Cheema MD Work Phone: [facility] 12-14-2022 16:17-0400 Heart rate 80 /min Jagjit Cheema MD Work Phone: [facility] 12-14-2022 16:17-0400 SaO2% (BldA) [Mass fraction] 99 % Jagjit Cheema MD Work Phone: [facility] 12-14-2022 16:17-0400 Systolic blood pressure 130 mm[Hg] Jagjit Cheema MD Work Phone: [facility] 11-07-2022 10:11-0400 Diastolic blood pressure 78 mm[Hg] Dr. Jagjit Cheema Work Phone: [facility] 11-07-2022 10:11-0400 Systolic blood pressure 140 mm[Hg] Dr. Jagjit Cheema Work Phone: [facility] 11-07-2022 09:48-0400 Body mass index (BMI) [Ratio] 38.3 kg/m2 Dr. Jagjit Cheema Work Phone: [facility] 11-07-2022 09:48-0400 Body weight 146.[address] Jagjit Cheema Work Phone: [facility] 11-07-2022 09:48-0400 Heart rate 74 /min Dr. Jagjit Cheema Work Phone: [facility] 11-07-2022 09:48-0400 Respiratory rate 16 /min Dr. Jagjit Cheema Work Phone: [facility] 10-25-2022 14:54-0400 Diastolic blood pressure 66 mm[Hg] Jagjit Cheema MD Work Phone: [facility] 10-25-2022 14:54-0400 Systolic blood pressure 130 mm[Hg] Jagjit Cheema MD Work Phone: [facility] 10-25-2022 14:29-0400 Body height 195.6 cm Jagjit Cheema MD Work Phone: [facility] 10-25-2022 14:29-0400 Body weight 147.42 kg Jagjit Cheema MD Work Phone: [facility] 10-25-2022 14:29-0400 Heart rate 78 /min Jagjit Cheema MD Work Phone: [facility] 10-25-2022 14:29-0400 SaO2% (BldA) [Mass fraction] 98 % Jagjit Cheema MD Work Phone: [facility] 09-22-2022 16:16-0400 Body temperature 98.49 [degF] Jagjit Cheema MD Work Phone: [facility] 09-22-2022 16:16-0400 Body weight 150.14 kg Jagjit Cheema MD Work Phone: [facility] 09-22-2022 16:16-0400 Diastolic blood pressure 62 mm[Hg] Jagjit Cheema MD Work Phone: [facility] 09-22-2022 16:16-0400 Heart rate 72 /min Jagjit Cheema MD Work Phone: [facility] 09-22-2022 16:16-0400 SaO2% (BldA) [Mass fraction] 97 % Jagjit Cheema MD Work Phone: [facility] 09-22-2022 16:16-0400 Systolic blood pressure 146 mm[Hg] Jagjit Cheema MD Work Phone: [facility] 08-09-2022 11:17-0500 Body height 195.[address] Jagjit Cheema Work Phone: [facility] 08-09-2022 11:17-0500 Body weight 149.[address] Jagjit Cheema Work Phone: [facility] 08-08-2022 11:05-0500 Body mass index (BMI) [Ratio] 39.1 kg/m2 Dr. Jagjit Cheema Work Phone: [facility] 08-03-2022 08:26-0500 Body mass index (BMI) [Ratio] 39.1 kg/m2 Dr. Jagjit Cheema Work Phone: [facility] 08-03-2022 08:26-0500 Body weight 149.[address] Jagjit Cheema Work Phone: [facility] 08-03-2022 08:26-0500 Diastolic blood pressure 76 mm[Hg] Dr. Jagjit Cheema Work Phone: [facility] 08-03-2022 08:26-0500 Heart rate 65 /min Dr. Jagjit Cheema Work Phone: 6(692)006-795451 [place] [address] 08-03-2022 08:26-0500 Respiratory rate 18 /min Dr. Jagjit Cheema Work Phone: 4(726)923-843056 [place] [address] 08-03-2022 08:26-0500 SaO2% (BldA) [Mass fraction] 98 % Dr. Jagjit Cheema Work Phone: 9(396)582-730256 [place] [address] 08-03-2022 08:26-0500 Systolic blood pressure 136 mm[Hg] Dr. Jagjit Cheema Work Phone: 7(977)898-507456 [place] [address] 06-16-2022 13:29-0500 Body height 195.[address] Jagjit Cheema Work Phone: 3(558)942-886456 [place] [address] Work Phone: 06-16-2022 13:29-0500 Body mass index (BMI) [Ratio] 38.6 kg/m2 Dr. Jagjit Cheema Work Phone: 9(895)010-825656 [place] [address] 06-16-2022 13:29-0500 Body weight 147.[address] Jagjit Cheema Work Phone: 8(238)783-513056 [place] [address] 06-16-2022 13:29-0500 Diastolic blood pressure 77 mm[Hg] Dr. Jagjit Cheema Work Phone: 6(436)486-592556 [place] [address] 06-16-2022 13:29-0500 Heart rate 67 /min Dr. Jagjit Cheema Work Phone: 3(121)231-503556 [place] [address] 06-16-2022 13:29-0500 Respiratory rate 20 /min Dr. Jagjit Cheema Work Phone: 8(856)979-794356 [place] [address] 06-16-2022 13:29-0500 SaO2% (BldA) [Mass fraction] 100 % Dr. Jagjit Cheema Work Phone: 6(183)796-864856 [place] [address] 06-16-2022 13:29-0500 Systolic blood pressure 147 mm[Hg] Dr. Jagjit Cheema Work Phone: 8(378)598-192956 [place] [address] 05-07-2022 14:37-0500 Diastolic blood pressure 94 mm[Hg] Dr. Jagjit Cheema Work Phone: 6(194)068-365051 [place] [address] 05-07-2022 14:37-0500 Heart rate 65 /min Dr. Jagjit Cheema Work Phone: 0(986)175-087456 [place] [address] 05-07-2022 14:37-0500 Respiratory rate 16 /min Dr. Jagjit Cheema Work Phone: 4(051)525-391556 [place] [address] 05-07-2022 14:37-0500 SaO2% (BldA) [Mass fraction] 97 % Dr. Jagjit Cheema Work Phone: 7(562)228-789156 [place] [address] 05-07-2022 14:37-0500 Systolic blood pressure 148 mm[Hg] Dr. Jagjit Cheema Work Phone: 3(124)642-353856 [place] [address] 05-07-2022 11:28-0500 Body height 195.[address] Jagjit Cheema Work Phone: 8(111)091-343156 [place] [address] Work Phone: 05-07-2022 11:28-0500 Body mass index (BMI) [Ratio] 39.1 kg/m2 Dr. aJgjit Cheema Work Phone: 2(876)983-469656 [place] [address] 05-07-2022 11:28-0500 Body temperature 97.8 [degF] Dr. Jagjit Cheema Work Phone: 2(800)174-759356 [place] [address] 05-07-2022 11:28-0500 Body weight 149.[address] Jagjit Cheema Work Phone: 4(770)356-800356 [place] [address] 04-29-2022 10:06-0500 Body height 195.[address] Jagjit Cheema Work Phone: 1(856)873-586656 [place] [address] Work Phone: 04-29-2022 10:06-0500 Body mass index (BMI) [Ratio] 38.2 kg/m2 Dr. Jagjit Cheema Work Phone: 0(327)733-775956 [place] [address] 04-29-2022 10:06-0500 Body weight 146.[address] Jagjit Cheema Work Phone: 1(316)134-518956 [place] [address] 04-29-2022 10:06-0500 Diastolic blood pressure 66 mm[Hg] Dr. Jagjit Cheema Work Phone: [facility] 04-29-2022 10:06-0500 Heart rate 92 /min Dr. Jagjit Cheema Work Phone: [facility] 04-29-2022 10:06-0500 Respiratory rate 16 /min Dr. Jagjit Cheema Work Phone: [facility] 04-29-2022 10:06-0500 Systolic blood pressure 140 mm[Hg] Dr. Jagjit Cheema Work Phone: [facility] 02-12-2022 14:28-0400 Diastolic blood pressure 77 mm[Hg] Dr. Jagjit Cheema Work Phone: [facility] Work Phone: 02-12-2022 14:28-0400 Heart rate 60 /min Dr. Jagjit Cheema Work Phone: [facility] Work Phone: 02-12-2022 14:28-0400 Respiratory rate 18 /min Dr. Jagjit Cheema Work Phone: [facility] Work Phone: 02-12-2022 14:28-0400 SaO2% (BldA) [Mass fraction] 100 % Dr. Jagjit Cheema Work Phone: [facility] Work Phone: 02-12-2022 14:28-0400 Systolic blood pressure 149 mm[Hg] Dr. Jagjit Cheema Work Phone: [facility] Work Phone: 02-12-2022 11:29-0400 Body height 195.[address] Jagjit Cheema Work Phone: [facility] Work Phone: 02-12-2022 11:29-0400 Body mass index (BMI) [Ratio] 38.5 kg/m2 Dr. Jagjit Cheema Work Phone: [facility] Work Phone: 02-12-2022 11:29-0400 Body temperature 98.2 [degF] Dr. Jagjit Cheema Work Phone: [facility] Work Phone: 02-12-2022 11:29-0400 Body weight 147.[address] Jagjit Cheema Work Phone: [facility] Work Phone: 02-12-2022 10:50-0400 Body temperature 98.2 [degF] Carolann Lance WET PLANT OPERATOR.BIOSOLIDS MANAGEMENT TECHNICIAN Work Phone: [facility] 02-12-2022 10:50-0400 Body weight 147.42 kg Carolann Lance WET PLANT OPERATOR.BIOSOLIDS MANAGEMENT TECHNICIAN Work Phone: [facility] 02-12-2022 10:50-0400 Diastolic blood pressure 80 mm[Hg] Carolann Lance WET PLANT OPERATOR.BIOSOLIDS MANAGEMENT TECHNICIAN Work Phone: [facility] 02-12-2022 10:50-0400 Heart rate 72 /min Carolann Lance WET PLANT OPERATOR.BIOSOLIDS MANAGEMENT TECHNICIAN Work Phone: [facility] 02-12-2022 10:50-0400 Respiratory rate 16 /min Carolann Lance WET PLANT OPERATOR.BIOSOLIDS MANAGEMENT TECHNICIAN Work Phone: [facility] 02-12-2022 10:50-0400 SaO2% (BldA) [Mass fraction] 98 % Carolann Lance WET PLANT OPERATOR.BIOSOLIDS MANAGEMENT TECHNICIAN Work Phone: [facility] 02-12-2022 10:50-0400 Systolic blood pressure 152 mm[Hg] Carolann Lance WET PLANT OPERATOR.BIOSOLIDS MANAGEMENT TECHNICIAN Work Phone: [facility] 11-23-2021 08:56-0400 Body height 195.[address] Jagjit Cheema Work Phone: [facility] Work Phone: 11-23-2021 08:56-0400 Body mass index (BMI) [Ratio] 38.5 kg/m2 Dr. Jagjit Cheema Work Phone: [facility] Work Phone: 11-23-2021 08:56-0400 Body weight 147.[address] Jagjit Cheema Work Phone: [facility] Work Phone: 11-23-2021 08:56-0400 Diastolic blood pressure 75 mm[Hg] Dr. Jagjit Cheema Work Phone: [facility] Work Phone: 11-23-2021 08:56-0400 Heart rate 65 /min Dr. Jagjit Cheema Work Phone: [facility] Work Phone: 11-23-2021 08:56-0400 Respiratory rate 18 /min Dr. Jagjit Cheema Work Phone: [facility] Work Phone: 11-23-2021 08:56-0400 Systolic blood pressure 152 mm[Hg] Dr. Jagjit Cheema Work Phone: [facility] Work Phone: 10-20-2021 08:31-0400 Body mass index (BMI) [Ratio] 38.9 kg/m2 Dr. Jagjit Cheema Work Phone: [facility] Work Phone: 10-20-2021 08:31-0400 Body weight 149.[address] Jagjit Cheema Work Phone: [facility] Work Phone: 10-20-2021 08:31-0400 Diastolic blood pressure 78 mm[Hg] Dr. Jagjit Cheema Work Phone: [facility] Work Phone: 10-20-2021 08:31-0400 Heart rate 68 /min Dr. Jagjit Cheema Work Phone: [facility] Work Phone: 10-20-2021 08:31-0400 Respiratory rate 12 /min Dr. Jagjit Cheema Work Phone: [facility] Work Phone: 10-20-2021 08:31-0400 Systolic blood pressure 142 mm[Hg] Dr. Jagjit Cheema Work Phone: [facility] Work Phone: 10-20-2021 08:31-0400 Body height 195.[address] Jagjit Cheema Work Phone: [facility] Work Phone: 10-20-2021 08:31-0400 Body mass index (BMI) [Ratio] 38.9 kg/m2 Dr. Jagjit Cheema Work Phone: [facility] Work Phone: 10-20-2021 08:31-0400 Body weight 149.[address] Jagjit Cheema Work Phone: [facility] Work Phone: 10-20-2021 08:31-0400 Diastolic blood pressure 78 mm[Hg] Dr. Jagjit Cheema Work Phone: [facility] Work Phone: 10-20-2021 08:31-0400 Heart rate 68 /min Dr. Jagjit Cheema Work Phone: [facility] Work Phone: 10-20-2021 08:31-0400 Respiratory rate 12 /min Dr. Jagjit Cheema Work Phone: [facility] Work Phone: 10-20-2021 08:31-0400 Systolic blood pressure 142 mm[Hg] Dr. Jagjit Cheema Work Phone: [facility] Work Phone: 10-14-2021 12:04-0400 Body temperature 97.7 [degF] Kisha Wen APRN.BIOSOLIDS MANAGEMENT TECHNICIAN Work Phone: [facility] 10-14-2021 12:04-0400 Body weight 148.87 kg Kisha Wen APRN.BIOSOLIDS MANAGEMENT TECHNICIAN Work Phone: [facility] 10-14-2021 12:04-0400 Diastolic blood pressure 82 mm[Hg] Kisha Wen APRN.BIOSOLIDS MANAGEMENT TECHNICIAN Work Phone: [facility] 10-14-2021 12:04-0400 Heart rate 64 /min Kisha Wen APRN.BIOSOLIDS MANAGEMENT TECHNICIAN Work Phone: [facility] 10-14-2021 12:04-0400 Respiratory rate 20 /min Kisha Wen APRN.BIOSOLIDS MANAGEMENT TECHNICIAN Work Phone: [facility] 10-14-2021 12:04-0400 SaO2% (BldA) [Mass fraction] 99 % Kisha Wen APRN.BIOSOLIDS MANAGEMENT TECHNICIAN Work Phone: [facility] 10-14-2021 12:04-0400 Systolic blood pressure 150 mm[Hg] Kisha Wen APRN.BIOSOLIDS MANAGEMENT TECHNICIAN Work Phone: [facility] 12-14-2016 16:00-0400 BMI (Body Mass Index) 37.68 kg/m2 [facility] Work Phone: 12-14-2016 [...] [facility] Work Phone: 01-04-2016 14:270400 BSA (Body Surface Area) 2.7 m2 [facility] Work Phone: 10-30-2013 11:11-0400 Heart rate 396 ms [facility] Work Phone: Encounters Encounter Date Encounter Type Care Provider Facility Start: 01-20-2025 End: 01-20-2025 ambulatory Jagjit Cheema MD Work Phone: [facility] [place] Comment on above: Colonoscopy Start: 01-07-2025 End: 01-07-2025 Admission to same day surgery center Richi Whitney MD Work Phone: Ambulatory Surgery Start: 01-07-2025 End: 01-07-2025 ambulatory Richi Whitney MD Work Phone: Ambulatory Surgery Start: 12-31-2024 End: 12-31-2024 Patient encounter procedure Yesica Bacon WET PLANT OPERATOR.BIOSOLIDS MANAGEMENT TECHNICIAN Work Phone: General Surgery Comment on above: Rectal bleeding Start: 12-31-2024 End: 12-31-2024 ambulatory YESICA BACON Facility:[facility] Start: 12-30-2024 End: 12-30-2024 Refill Jagjit Cheema MD Work Phone: [facility] [place] Comment on above: Refill Request Start: 12-24-2024 End: 12-24-2024 Patient encounter procedure Jagjit Cheema MD Work Phone: [facility] [place] Comment on above: Rectal bleeding (Minnie dionisio Dx); Hyperglycemia; Sleep apnea, unspecified type; 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; Class 2 obesity with body mass index (BMI) of 38.0 to 38.9 in adult, unspecified obesity type, unspecified whether serious comorbidity present; Attention deficit disorder, unspecified type Start: 12-24-2024 End: 12-24-2024 Telephone encounter Jagjit Cheema MD Work Phone: [facility] Comment on above: Pharmacy Call Start: 12-24-2024 End: 12-24-2024 ambulatory [facility] Facility:[facility] Start: 11-28-2024 End: 11-28-2024 Patient encounter procedure Hussein RUIZ -[facility] Work Phone: Start: 11-28-2024 End: 11-28-[address] Jagjit Cheema MD Work Phone: [facility] Work Phone: Start: 11-21-2024 ambulatory [facility] Facility:[facility] Start: 11-21-2024 Non-patient / Non-visit Dr. Lanette Haywood MD -[facility] Start: 11-21-2024 End: 11-21-[address] Jagjit Cheema MD Work Phone: [facility] Work Phone: Start: 11-21-2024 End: 11-21-[address] Karl Vo MD -Cardiovascular Services Work Phone: Start: 11-21-2024 End: 11-21-2024 ambulatory [facility] Start: 11-20-2024 End: 11-20-2024 Emergency department patient visit Dr. Jagjit Cheema MD Work Phone: -Emergency Department Work Phone: Start: 11-18-2024 End: 01-18-2025 Follow-up encounter Susan Kerr APRN.BIOSOLIDS MANAGEMENT TECHNICIAN Work Phone: [facility] Start: 11-18-2024 End: 11-18-2024 Subsequent hospital visit by physician [facility] Work Phone: Radiology Comment on above: Acute cough [R05.1] Start: 11-18-2024 ambulatory [facility] Facility :[facility] Start: 11-18-2024 End: 11-18-2024 Office outpatient visit 25 minutes Susan Kerr APRN.BIOSOLIDS MANAGEMENT TECHNICIAN Work Phone: [facility] Comment on above: Bronchitis (Primary Dx); SOB (shortness of breath); Acute cough Start: 11-18-2024 End: 11-18-2024 ambulatory [facility] Facility:[facility] Start: 10-28-2024 End: 10-28-2024 Emergency department patient visit Dr. Jagjit Cheema MD Work Phone: -Emergency Department Work Phone: Start: 10-28-2024 End: 10-28-2024 ambulatory Nurse Intm/Famp Triage [facility] Work Phone: Nurse Phone Triage Comment on above: Rectal Bleeding Start: 10-21-2024 End: 10-21-2024 Patient encounter procedure Jagjit Cheema MD Work Phone: [facility] [place] Comment on above: Attention deficit di sorder, unspecified type (Primary Dx); Anxiety with depression; Thrombocytopenia Start: 10-21-2024 End: 10-21-2024 ambulatory JAGJIT CHEEMA Facility:[facility] Start: 10-18-2024 End: 12-18-2024 Follow-up encounter Jagjit Cheema MD Work Phone: [facility] [place] Start: 10-18-2024 End: 10-18-2024 ambulatory [facility] Facility:[facility] Start: 10-16-2024 End: 10-16-2024 Refill Jagjit Cheema MD Work Phone: [facility] [place] Comment on above: Refill Request Start: 09-27-2024 End: 09-27-2024 Telephone encounter Jagjit Cheema MD Work Phone: [facility] [place] Comment on above: Medication Problem Start: 09-23-2024 End: 09-23-2024 ambulatory [facility] Facility:[facility] Start: 09-23-2024 End: 09-23-2024 Patient encounter procedure Jagjit Cheema MD Work Phone: [facility] [place] Comment on above: Attention deficit di sorder, unspecified type (Primary Dx); Anxiety with depression; Essential hypertension, benign Start: 09-19-2024 End: 09-19-2024 Telephone encounter Jagjit Cheema MD Work Phone: Pulmonology [facility] Comment on above: Patient Update Start: 09-18-2024 End: 09-18-2024 Follow-up encounter Jagjit Cheema MD Work Phone: [facility] Start: 09-17-2024 End: 09-17-2024 ambulatory JAGJIT CHEEMA Facility:[facility] Start: 09-11-2024 End: 09-11-2024 ambulatory JAGJIT CHEEMA Facility:[facility] Start: 09-11-2024 End: 09-11-2024 Patient encounter procedure Jagjit Cheema MD Work Phone: [facility] [place] Comment on above: Coronary artery dise ase involving seminole coronary artery of seminole heart without angina pectoris (Primary Dx); Hyperlipidemia, unspecified hyperlipidemia type; Atrial flutter, unspecified type (HCC); Sleep apnea, unspecified type; Gastric intestinal metaplasia; History of pulmonary embolism; History of asthma; Fatigue, unspecified type Start: 08-16-2024 End: 08-16-2024 Patient encounter procedure [facility] Work Phone: Start: 08-16-2024 End: 08-16-2024 Refill Jagjit Cheema MD Work Phone: [facility] [place] Comment on above: Refill Request Start: 07-12-2024 End: 07-12-2024 Telephone encounter Jagjit Cheema MD Work Phone: [facility] [place] Comment on above: [employer] Start: 07-08-2024 End: 07-08-2024 Subsequent hospital visit by physician [facility] [place] Work Phone: Radiology Comment on above: Bacterial pneumonia [J15.9] Start: 07-08-2024 End: 07-08-2024 ambulatory JAGJIT CHEEMA Facility:[facility] Start: 07-08-2024 End: 07-08-2024 Patient encounter procedure Jagjit Cheema MD Work Phone: [facility] [place] Comment on above: Bacterial pneumonia (Primary Dx); Atrial flutter, unspecified type (HCC); Hyperglycemia; Hypokalemia Start: 07-01-2024 End: 07-01-2024 Refill Jagjit Cheema MD Work Phone: [facility] [place] Comment on above: Refill Request Start: 06-25-2024 End: 06-25-2024 Telephone encounter Jagjit Cheeam MD Work Phone: [facility] [place] Comment on above: Results Start: 06-24-2024 End: 06-24-2024 ambulatory [facility] Facility:[facility] Start: 06-24-2024 End: 06-24-2024 Patient encounter procedure Jagjit Cheema MD Work Phone: [facility] [place] Comment on above: Bacterial pneumonia (Primary Dx); Hemoptysis; History of pulmonary embolism; SOB (shortness of breath) Start: 06-17-2024 End: 06-17-2024 Subsequent hospital visit by physician [facility] [place] Work Phone: Radiology Comment on above: Bronchitis [J40] Start: 06-17-2024 End: 06-17-2024 ambulatory [facility] Facility:[facility] Start: 06-17-2024 End: 06-17-2024 Patient encounter procedure Jagjit Cheema MD Work Phone: [facility] [place] Comment on above: Bronchitis (Primary Dx); Sinobronchitis Start: 06-17-2024 End: 06-17-2024 Telephone encounter Jagjit Cheema MD Work Phone: [facility] [place] Comment on above: Patient Question; Or ders Results Start: 06-13-2024 End: 06-13-2024 Patient encounter procedure Carolann Lucas APRN.CNP Work Phone: [facility] Comment on above: Rhinosinusitis (Prim rachel Dx) Start: 06-13-2024 End: 06-13-2024 ambulatory [facility] Facility:[facility] Start: 06-04-2024 End: 06-04-2024 ambulatory [facility] Facility:[facility] Start: 04-26-2024 End: 04-26-2024 Telephone encounter Lisa Javed APRN.BIOSOLIDS MANAGEMENT TECHNICIAN Work Phone: Family [facility] [place] Comment on above: Lab add on Start: 04-25-2024 End: 04-25-2024 Subsequent hospital visit by physician Saba [facility] [place] Work Phone: Radiology Comment on above: Acute cough [R05.1] Start: 04-25-2024 End: 04-25-2024 ambulatory Jagjit Cheema MD Work Phone: [facility] [place] Comment on above: Fatigue Start: 04-25-2024 End: 04-25-2024 Patient encounter procedure Lisa Javed WET PLANT OPERATOR.BIOSOLIDS MANAGEMENT TECHNICIAN Work Phone: [facility] [place] Comment on above: Dizziness (Primary D x); Acute cough; Generalized weakness; SOB (shortness of breath) Start: 04-10-2024 End: 04-10-2024 Patient encounter procedure Rojas Dominguez MD Work Phone: [facility] [place] Comment on above: Viral URI with cough (Primary Dx); Uncomplicated asthma, unspecified asthma severity, unspecified whether persistent Start: 04-10-2024 End: 04-10-2024 ambulatory ROJAS DOMINGUEZ Facility:[facility] Start: 03-13-2024 End: 03-13-2024 ambulatory JAGJIT CHEEMA Facility:[facility] Start: 03-13-2024 End: 03-13-2024 Patient encounter procedure Jagjit Cheema MD Work Phone: [facility] [place] Comment on above: LLQ pain (Primary Dx ); RLQ abdominal pain; Diarrhea, unspecified type Start: 03-08-2024 ambulatory JAGJIT CHEEMA Facility :[facility] Start: 03-08-2024 End: 03-08-2024 Subsequent hospital visit by physician [facility] Comment on above: Left lower quadrant abdominal pain [R10.32] Start: 03-08-2024 End: 03-08-2024 Telephone encounter Jagjit Cheema MD Work Phone: [facility] [place] Comment on above: Results Start: 03-08-2024 End: 03-08-2024 ambulatory JAGJIT CHEEMA Facility:[facility] Start: 03-08-2024 End: 03-08-2024 Patient encounter procedure Jagjit Cheema MD Work Phone: [facility] [place] Comment on above: Coronary artery dise ase involving seminole coronary artery of seminole heart without angina pectoris (Primary Dx); Hyperlipidemia, unspecified hyperlipidemia type; Presence of stent in coronary artery; Sleep apnea, unspecified type; Uncomplicated asthma, unspecified asthma severity, unspecified whether persistent; History of pulmonary embolism; History of TIAs; Gastroesophageal reflux disease, unspecified whether esophagitis present; Diarrhea, unspecified type; LLQ pain; Chronic RLQ pain; Left lower quadrant abdominal pain Start: 01-15-2024 End: 01-15-2024 ambulatory Clarissa Chris Facility:[facility] Start: 01-09-2024 End: 01-09-2024 Office outpatient visit 10 minutes Beverley Gutierrez WET PLANT OPERATOR.BIOSOLIDS MANAGEMENT TECHNICIAN Work Phone: [facility] [place] Comment on above: COVID-19 (Primary Dx ) Start: 01-09-2024 End: 01-09-2024 ambulatory JAGJIT Sanders [facility] Facility:[facility] Start: 12-29-2023 End: 12-29-2023 Patient encounter procedure Jagjit Cheema MD Work Phone: [facility] [place] Comment on above: Bronchitis (Primary Dx); Atrial flutter, unspecified type (HCC); Uncomplicated asthma, unspecified asthma severity, unspecified whether persistent; Fatigue, unspecified type Start: 12-13-2023 Telephone encounter Susan puentes APRN.BIOSOLIDS MANAGEMENT TECHNICIAN Work Phone: [facility] [place] Comment on above: Orders Start: 12-13-2023 End: 12-13-2023 Office outpatient visit 25 minutes Susan Kerr APRN.BIOSOLIDS MANAGEMENT TECHNICIAN Work Phone: [facility] [place] Comment on above: Chronic cough (Prima ry Dx); Chest pain on breathing Start: 12-01-2023 Refill Jagjit Cheema MD Work Phone: [facility] [place] Comment on above: Refill Request Start: 11-29-2023 End: 11-29-2023 Patient encounter procedure Jagjit Cheema MD Work Phone: [facility] Comment on above: ADHD (attention defi cit hyperactivity disorder), combined type (Primary Dx); Need for vaccination Start: 10-25-2023 End: 10-25-2023 [facility] Jagjit Chemea MD Work Phone: [facility] Comment on above: ADHD (attention defi cit hyperactivity disorder), combined type (Primary Dx) Start: 10-20-2023 End: 10-20-[address] Jagjit Cheema Work Phone: [facility] Radiology Start: 10-18-2023 End: 10-18-[address] Jagjit Cheema Work Phone: [facility] Work Phone: Start: 10-18-2023 End: 10-18-[address] Jagjit Cheema Work Phone: [facility] Work Phone: Start: 10-16-2023 End: 10-16-[address] 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 Start: 07-19-2023 End: 07-19-2023 ambulatory JAGJIT CHEEMA Facility:[facility] Start: 07-13-2023 End: 07-13-[address] Jagjit Cheema Work Phone: [facility] Work Phone: Start: 07-13-2023 End: 07-13-[address] Jagjit Cheema Work Phone: [facility] Work Phone: Start: 07-05-2023 End: 07-05-2023 Admission to same day surgery center Dr. Jagjit Cheema Work Phone: [facility] Start: 07-05-2023 End: 07-05-[address] Jagjit Cheema Work Phone: [facility] [facility] Work Phone: Start: 06-30-2023 End: 04-23-2024 Telephone encounter Robby Bales MD Work Phone: General Surgery Comment on above: 07/19/2023 UMBILICAL HERNIA REPAIR PAHRUMP Start: 06-08-2023 Refill Jagjit Cheema MD Work Phone: [facility] [place] Comment on above: Refill Request Start: 05-09-2023 End: 05-09-2023 ambulatory [facility] Work Phone: Start: 05-09-2023 End: 05-09-2023 Discharged Recurring [facility] Work Phone: Start: 04-27-2023 Registered Recurring [facility] Work Phone: Start: 04-25-2023 End: 04-25-2023 ambulatory [facility] Work Phone: Start: 04-25-2023 End: 04-25-2023 Patient encounter procedure [facility] Work Phone: Start: 04-03-2023 End: 04-03-2023 Subsequent hospital visit by physician Xr [facility] [place] Work Phone: Radiology Comment on above: Pain of left heel [M 79.672] Start: 01-23-2023 End: 01-23-2023 Patient encounter procedure Jagjit Cheema MD Work Phone: [facility] [place] Comment on above: Essential hypertensi on, benign (Primary Dx); Recurrent UTI (urinary tract infection); Adjustment disorder with anxious mood; Fatigue, unspecified type; Atrial flutter, unspecified type (HCC); 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 Start: 01-03-2023 ambulatory Jagjit Cheema MD Work Phone: [facility] [place] Comment on above: Therapist Start: 01-03-2023 Telephone encounter Vee Quintin gutierrez [facility] Work Phone: Psychology Comment on above: bh consult Start: 12-22-2022 Refill Sincere Rosales on PA-C Work Phone: [facility] [place] Comment on above: Refill Request Start: 12-19-2022 End: 12-19-2022 Patient encounter procedure Jagjit Cheema MD Work Phone: [facility] Comment on above: Urinary tract infect ion without hematuria, site unspecified (Primary Dx); Hypokalemia; Leukocytosis, unspecified type Start: 12-16-2022 Non-patient / Non-visit Dr. Catina Cheema Work Phone: [facility] Phys[facility] Work Phone: Start: 12-15-2022 End: 12-16-2022 Evaluation and management of inpatient Dr. Jagjit [facility]ema [facility] Work Phone: Start: 12-15-2022 ambulatory Jagjit Cheema MD Work Phone: [facility] [place] Comment on above: ER F/U Start: 12-14-2022 End: 12-14-2022 Emergency department patient visit Dr. Jagjit Cheema Work Phone: [facility] Work Phone: Start: 12-14-2022 End: 12-14-2022 Patient encounter procedure Jagjit Cheema MD Work Phone: [facility] Comment on above: Urinary tract infect ion with hematuria, site unspecified (Primary Dx); Fever, unspecified fever cause; Dehydration Start: 11-22-2022 ambulatory Kira Watt Work Phone: General Surgery Comment on above: Insurance Start: 11-07-2022 End: 11-07-[address] 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 Pola Cheema Work Phone: [facility] Work Phone: Start: 09-23-2022 Telephone encounter [facility] Comment on above: Consult (Patient Out reach [facility]) Start: 09-22-2022 End: 09-22-2022 Patient encounter procedure Jagjit Cheema MD Work Phone: [facility] Comment on above: Bacterial sinusitis (Primary Dx); Adjustment disorder with anxious mood; Essential hypertension, benign; Other pulmonary embolism without acute cor pulmonale, unspecified chronicity (HCC); Hyperlipidemia, unspecified hyperlipidemia type; 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; Sleep apnea, unspecified type; Uncomplicated asthma, unspecified asthma severity, unspecified whether persistent; Atrial flutter, unspecified type (HCC); Myalgia; Disorder of bone, unspecified Start: 09-06-2022 Refill Sincere romo PA-C Work Phone: [facility] Comment on above: Refill Request Start: 08-09-2022 Non-patient / Non-visit Dr. Catina Cheema Work Phone: [facility] Start: 08-09-2022 End: 08-09-2022 Admission to same day surgery center Dr. Jagjit Cheema Work Phone: [facility]-Water Filtration Technician/Special Procedures Start: 08-09-2022 End: 08-09-[address] Jagjit Cheema Work Phone: [facility] Work Phone: Start: 08-08-2022 Non-patient / Non-visit Dr. Catina Cheema Work Phone: [facility] Start: 08-03-2022 End: 08-03-[address] Jagjit Cheema Work Phone: [facility] Start: 06-22-2022 Refill Jagjit Cheema MD Work Phone: [facility] Comment on above: Refill Request Start: 06-16-2022 End: 06-16-[address] Jagjit Cheema Work Phone: [facility] Work Phone: Start: 06-16-2022 End: 06-16-[address] Jagjit Cheema Work Phone: [facility] Start: 06-16-2022 End: 06-16-[address] Jagjit Cheema Work Phone: [facility] Start: 05-18-2022 Non-patient / Non-visit [facility] Start: 05-18-2022 End: 05-18-[address] Jagjit Cheema Work Phone: [facility] Work Phone: Start: 05-18-2022 End: 05-18-[address] Jagjit Cheema Work Phone: [facility]Cardiov[facility] Start: 05-09-2022 End: 05-09-[address] Jagjit Cheema Work Phone: [facility]Pulmonary Services/Neurology Start: 05-07-2022 End: 05-07-2022 Emergency department patient visit Dr. Jagjit Cheema Work Phone: [facility]Emergency Department Start: 04-29-2022 End: 04-29-[address] Jagjit Cheema Work Phone: [facility] Start: 04-29-2022 End: 04-29-[address] Jagjit Cheema Work Phone: [facility] [facility] Start: 04-25-2022 End: 04-25-[address] Jagjit Cheema Work Phone: [facility] Work Phone: Start: 04-25-2022 End: 04-25-2022 [facility] Start: 04-21-2022 Chart abstracting Jagjit Becker MD Work Phone: [facility] Start: 04-20-2022 End: 04-20-2022 ambulatory [facility] Work Phone: Start: 04-20-2022 End: 04-20-2022 [facility] Start: 03-12-2022 Refill Jagjit Cheema MD Work Phone: [facility] Comment on above: Refill Request Start: 02-22-2022 Nafisa Rosales on PA-C Work Phone: [facility] Comment on above: Refill Request Start: 02-12-2022 End: 02-12-2022 Emergency department patient visit Dr. Jagjit Cheema Work Phone: [facility] Start: 02-12-2022 End: 02-12-2022 Patient encounter procedure Carolann Lucas COMFORT.BIOSOLIDS MANAGEMENT TECHNICIAN Work Phone: [facility] Comment on above: Facial pain (Primary Dx); Right ear pain; Acute right eye pain Start: 12-16-2021 ambulatory Jagjit Cheema MD Work Phone: [facility] Comment on above: Hello Doc Start: 12-07-2021 Telephone encounter Jagjit Cheema MD Work Phone: [facility] Comment on above: ear problems/sinuses Start: 11-29-2021 Telephone encounter Jagjit Cheema MD Work Phone: [facility] Comment on above: Results Patient Update Start: 11-29-2021 End: 11-29-[address] Jagjit Cheema Work Phone: [facility]Laboratory, Specimen Start: 11-29-2021 End: 11-29-2021 Subsequent hospital visit by physician Xr [facility] Work Phone: Radiology Comment on above: Other pulmonary embo lism without acute cor pulmonale, unspecified chronicity (HCC) [I26.99] Start: 11-28-2021 ambulatory Jagjit Cheema MD Work Phone: [facility] Comment on above: Covid issues Start: 11-23-2021 End: 11-23-[address] Jagjit Cheema Work Phone: [facility] Start: 11-13-2021 ambulatory Jagjit Cheema MD Work Phone: [facility] Comment on above: Prescription ran out Start: 10-20-2021 End: 10-20-[address] Jagjit Cheema Work Phone: [facility] Start: 10-20-2021 End: 10-20-[address] Jagjit Cheema Work Phone: [facility] Start: 10-14-2021 End: 10-14-2021 Patient encounter procedure Kisha Wen APRN.CNP Work Phone: [facility] Comment on above: Feeling light headed (Primary Dx) Start: 09-30-2021 End: 09-30-[address] Jagjit Cheema Work Phone: [facility] Radiology Start: 09-10-2021 End: 09-10-2021 Patient encounter procedure Oliva Gutierrez PA-C Work Phone: Orthopaedics Comment on above: Pes planus of both f eet (Primary Dx); Acquired valgus deformity of right ankle; Primary osteoarthritis of right ankle Start: 09-10-2021 End: 09-10-2021 Subsequent hospital visit by physician Xr [facility] Work Phone: Radiology Comment on above: Pain [R52] Start: 09-05-2020 Patient encounter procedure Abraham Rosa MD Work Phone: [facility] Start: 09-05-2020 Progress Note Abraham walter MD Work Phone: [facility] Start: 04-28-2020 End: 04-28-2020 Subsequent hospital visit by physician Xr [facility] Work Phone: Radiology Comment on above: Pain of right heel [ M79.671] Start: 03-19-2020 Patient encounter procedure Eyal Montoya DO Work Phone: [facility] Start: 03-19-2020 Progress Note Eyal Bagley Work Phone: [facility] Start: 10-30-2017 End: 10-30-2017 Emergency department patient visit JAGJIT SOUZA [facility] Procedures Date Procedure Procedure Detail Performing Clinician Start: 11-21-2024 Cardiovascular stres s test using pharmacologic stress agent Dr. Jagjit Cheema MD Work Phone: Start: 11-20-2024 X-ray of chest, PA a nd lateral views Dr. Jagjit Cheema MD Work Phone: Start: 11-20-2024 D-dimer assay, quantitative Dr. Jagjit Cheema MD Work Phone: Comment on above: NORMAL D-Dimer level (<0.50) indicates no DVT or PE. Start: 11-20-[address] Jagjit Cheema MD Work Phone: Start: 11-18-2024 Radiologic exam ches t 2 views Susan Kerr WET PLANT OPERATOR.BIOSOLIDS MANAGEMENT TECHNICIAN Work Phone: Start: 10-28-2024 Computed tomography of abdomen and pelvis with intravenous contrast Dr. Jagjit Cheema MD Work Phone: Start: 10-28-[address] Jagjit Cheema MD Work Phone: Start: 10-28-2024 Urnls dip stick/tabl et reagent auto microscopy Dr. Jagjit Cheema MD Work Phone: Start: 09-17-2024 Lipid 1996 panel - S pierre or Plasma Jagjit Cheema MD Work Phone: Start: 07-08-2024 Radiologic exam ches t 2 views Jagjit Cheema MD Work Phone: Start: 06-17-2024 Radiologic exam ches t 2 views Jagjit Cheema MD Work Phone: Start: 04-25-2024 Radiologic exam ches t 2 views Lisa Javed WET PLANT OPERATOR.BIOSOLIDS MANAGEMENT TECHNICIAN Work Phone: Start: 03-08-2024 Ct abdomen & pelvis w/contrast material Jagjit Cheema MD Work Phone: Start: 12-29-2023 Adult depression scr eening assessment [facility] [place] Work Phone: Start: 10-20-2023 Plain x-ray of pelvi s and lower extremity Dr. Jagjit Cheema Work Phone: Start: 09-06-2023 Lipid 1996 panel - S pierre or Plasma Jagjit Cheema MD Work Phone: Start: 07-26-2023 End: 07-26-2023 History of percutaneous transluminal coronary angioplasty Status post coronary artery balloon dilation Jagjit Cheema MD Work Phone: Start: 04-03-2023 Radex foot complete minimum 3 views Anabelle Tom WET PLANT OPERATOR.BIOSOLIDS MANAGEMENT TECHNICIAN Work Phone: Start: 12-15-2022 Plain chest X-ray Dr. Chito hCeema Work Phone: Start: 12-15-[address] Jagjit Cheema Work Phone: Start: 12-14-2022 Plain chest X-ray Dr. Chito Cheema Work Phone: Start: 12-14-2022 CT of abdomen and pe lvis without contrast Dr. Jagjit Cheema Work Phone: Start: 12-14-2022 Urnls dip stick/tabl et rgnt auto w/o microscopy Jagjit Cheema MD Work Phone: Start: 12-14-[address] Pola Cheema Work Phone: Start: 12-01-2022 Colonoscopy LANETTE Hung PA-C Work Phone: Start: 09-26-2022 Lipid 1996 panel - S pierre or Plasma Jagjit Cheema MD Work Phone: Start: 05-18-2022 Cardiovascular stres s test using pharmacologic stress agent Dr. Jagjit Cheema Work Phone: Start: 05-07-2022 Plain chest X-ray Dr. Chito Cheema Work Phone: Start: 04-20-2022 Lipid panel [facility] Start: 02-12-2022 CT of head without contrast Dr. Jagjit Cheema Work Phone: Start: 11-29-2021 Radiologic exam ches t 2 views Jagjit Cheema MD Work Phone: Start: 09-30-2021 X-ray of cervical spine Dr. Jagjit Cheema Work Phone: Start: 09-10-2021 Radex ankle complete minimum 3 views Oliva Gutierrez PA-C Work Phone: Start: 04-28-2020 Radex foot complete minimum 3 views Sincere Rosaleson PA-C Work Phone: Start: 01-28-2019 Colonoscopy Oliva myrick PA-C Work Phone: Start: 01-24-2019 Colonoscopy Kisha Wen APRN.BIOSOLIDS MANAGEMENT TECHNICIAN Work Phone: Start: 05-22-2018 Adult depression scr [...] Follow Up Appt 3 months Lorena Cruz TECHNICAL APPLICATIONS SPECIALIST Work Phone: Start: 08-17-2016 End: 08-17-2016 MMM Lorena Cruz TECHNICAL APPLICATIONS SPECIALIST Work Phone: Start: 01-04-2016 End: 01-04-2016 Dietary management education, guidance, and counseling Erlin Mohr Start: 01-04-2016 End: 01-15-2016 Ct thorax w/dye Willis Alfred MD Start: 01-04-2016 End: 11-22-2016 Echocardiography Willis Alfred MD Start: 01-04-2016 End: 01-04-2016 Electrocardiogram, complete Willis Alfred MD Start: 01-04-2016 End: 01-04-2016 Follow Up [...] Start: 12-04-2013 End: 03-12-2014 Electrocardiogram, complete Robby Steen MD Work Phone: Start: 12-04-2013 [...] 09-04-2013 End: 09-16-2013 Lipid panel [AGGREGATE] Willis lAfred MD Start: 09-04-2013 End: 09-04-2013 MMM Willis [...] Start: 12-17-2012 End: 12-17-2012 Electrocardiogram, complete Willis Alfred MD Start: 12-17-2012 End: 12-02-2013 Follow Up [...] Start: 08-21-2012 End: 2012 Electrocardiogram, complete Willis Alfred MD Start: 08-21-2012 End: 2012 Left Heart Cath Willis Alfred MD Start: 07-18-2012 End: 2012 Echocardiography Willis Alfred MD Start: 07-18-2012 End: 07-18-2012 Electrocardiogram, complete Willis Alfred MD Start: 07-18-2012 End: 07-18-2012 Follow Up Appt 6 months Willis Alfred MD Start: 07-18-2012 End: 2012 Nuclear stress test -exercise Willis Alfred MD Start: 07-18-2012 End: 07-18-2012 PFM Willis Alfred MD History of percutane ous transluminal coronary angioplasty H/O percutaneous transluminal coronary angioplasty Dr. Jagjit Cheema Work Phone: Plan of Treatment Date Care Activity Detail Author Start: 09-17-2029 Lipid panel Lipid Screening [facility] Start: 09-05-2028 Lipid panel Lipid Screening [facility] Start: 12-02-2027 Colonoscopy COLONOSCOPY [facility] Start: 12-02-2027 COLORECTAL CANCER SCREENING COLORECTAL CANCER SCREENING [facility] Start: 12-02-2027 Screening for malignant neoplasm of colon [facility] Start: 09-27-2027 Lipid panel Lipid Screening [facility] Start: 09-27-2027 LIPID SCREEN LIPID SCREEN [facility] Start: 09-18-2027 Diabetes Screening Diabetes Screening [facility] Start: 07-08-2027 Diabetes Screening Diabetes Screening [facility] Start: 06-24-2027 Diabetes Screening Diabetes Screening [facility] Start: 04-25-2027 Diabetes Screening Diabetes Screening [facility] Start: 04-20-2027 LIPID SCREEN LIPID SCREEN [facility] Start: 03-08-2027 Diabetes Screening Diabetes Screening [facility] Start: 12-19-2026 Diabetes Screening Diabetes Screening [facility] Start: 12-12-2026 Diabetes Screening Diabetes Screening [facility] Start: 09-05-2026 Diabetes Screening Diabetes Screening [facility] Start: 02-08-2026 Diabetes Screening Diabetes Screening [facility] Start: 12-29-2025 DIABETES SCREEN DIABETES SCREEN [facility] Start: 12-24-2025 Annual PCP Team Chronic Disease Visit Annual PCP Team Chronic Disease Visit [facility] Start: 12-19-2025 DIABETES SCREEN DIABETES SCREEN [facility] Start: 11-18-2025 Annual PCP Team Chronic Disease Visit Annual PCP Team Chronic Disease Visit [facility] Start: 10-22-2025 PROSTATE CANCER SCREENING DISCUSSION PROSTATE CANCER SCREENING DISCUSSION [facility] Start: 10-22-2025 Prostate specific antigen measurement Prostate Cancer Screening Discussion [facility] Start: 10-21-2025 Annual PCP Team Chronic Disease Visit Annual PCP Team Chronic Disease Visit [facility] Start: 09-26-2025 DIABETES SCREEN DIABETES SCREEN [facility] Start: 09-23-2025 Annual PCP Team Chronic Disease Visit Annual PCP Team Chronic Disease Visit [facility] Start: 09-17-2025 Hepatitis B surface antibody level LDL Cholesterol [facility] Start: 09-11-2025 Annual PCP Team Chronic Disease Visit Annual PCP Team Chronic Disease Visit [facility] Start: 09-11-2025 RSV Vaccine (1 - Risk 60-74 years 1-dose series) RSV Vaccine (1 - Risk 60-74 years 1-dose series) [facility] Comment on above: Postponed from 2017 (Declined at t his time) Start: 07-08-2025 Annual PCP Team Chronic Disease Visit Annual PCP Team Chronic Disease Visit [facility] Start: 06-24-2025 Annual PCP Team Chronic Disease Visit Annual PCP Team Chronic Disease Visit [facility] Start: 06-17-2025 Annual PCP Team Chronic Disease Visit Annual PCP Team Chronic Disease Visit [facility] Start: 04-25-2025 Annual PCP Team Chronic Disease Visit Annual PCP Team Chronic Disease Visit [facility] Start: 04-10-2025 Annual PCP Team Chronic Disease Visit Annual PCP Team Chronic Disease Visit [facility] Start: 03-28-2025 End: 03-28-2025 Patient encounter procedure 03/28/2025 8:00 AM EDT Office Visit Family Breonna [facility] [address] [place] [id number] Jagjit Cheema MD [address] [facility] [place], [place] [id number] Medicare Wellness Family [facility] Comment on above: Medicare Wellness Start: 03-27-2025 End: 03-27-2025 Patient encounter procedure 03/27/2025 8:00 AM EDT Appointment LD SURGERY [address] [place] [address] Jaimie Bennett MD [address] [place] [id number] Rectal bleeding [K62.5] [facility] Comment on above: Rectal bleeding [K62.5] Start: 03-13-2025 Annual PCP Team Chronic Disease Visit Annual PCP Team Chronic Disease Visit [facility] Start: 03-10-2025 End: 03-10-2025 Patient encounter procedure 03/10/2025 9:00 AM EDT Office Visit Family Breonna Sty[facility] [address] [place] [address] Jagjit Cheema MD [address] [facility] [place], [place] [id number] 8 week follow up Family Medicine [facility] Comment on above: 8 week follow up Start: 03-08-2025 Annual PCP Team Chronic Disease Visit Annual PCP Team Chronic Disease Visit [facility] Start: 03-08-2025 Covid-19 Vaccine () Covid-19 Vaccine () [facility] Comment on above: Postponed from 02/18/2024 (Declined at t his time) Start: 03-08-2025 Covid-19 Vaccine () Covid-19 Vaccine () [facility] Comment on above: Postponed from 02/18/2024 (Declined at t his time) Start: 02-17-2025 Influenza vaccination [facility] Start: 01-14-2025 End: 01-14-2025 Patient encounter procedure 01/14/2025 1:45 PM EDT Appointment Ambulatory Surgery [address] [place] [address] Richi Whitney MD [address] [place] [address] Rectal bleeding [K62.5] Ambulatory Surgery Comment on above: Rectal bleeding [K62.5] Start: 01-02-2025 End: 01-02-2025 Anesthesia consultation 01/02/2025 11:59 PM EDT Anesthesia Event Ambulatory Surgery [address] [place] [address] Kell Sanon, WET PLANT OPERATOR.GOLF TECHNICIAN [address] [place] [address] Ambulatory Surgery Start: 12-31-2024 End: 12-31-2024 Patient encounter procedure General Surgery Comment on above: Rectal bleeding [K62.5]-Colonoscopy CONSULT: Rectal blee ding-Colonoscopy. Last 12/01/22 ([address] Deni watkins [facility] Start: 12-28-2024 Annual PCP Team Chronic Disease Visit Annual PCP Team Chronic Disease Visit [facility] Start: 12-28-2024 Anxiety Screening Anxiety Screening [facility] Start: 12-28-2024 Covid-19 Vaccine ( season) Covid-19 Vaccine ( season) [facility] Comment on above: Postponed from 11/24/2023 (Declined at t his time) Start: 12-28-2024 Depression Screening Depression Screening [facility] Start: 12-24-2024 End: 12-24-2024 Patient encounter procedure 12/24/2024 2:00 PM EDT Office Visit Family Medicine [facility] [address] [place] [address] Jagjit Cheema MD [address] [place] [address] 8 week follow up Family Medicine [facility] Comment on above: 8 week follow up Start: 12-22-2024 LIPID SCREEN LIPID SCREEN [facility] Start: 12-16-2024 Influenza vaccination [facility] Comment on above: Postponed from 02/18/2024 (Declined at t his time) Start: 12-12-2024 Annual PCP Team Chronic Disease Visit Annual PCP Team Chronic Disease Visit [facility] Start: 11-28-2024 Annual PCP Team Chronic Disease Visit Annual PCP Team Chronic Disease Visit [facility] Start: 11-28-2024 Patient referral [facility] Work Phone: Start: 11-28-2024 Shingrix Vaccine (1 of 2) Shingrix Vaccine (1 of 2) [facility] Comment on above: Postponed from 09/22/2007 (Declined at t his time) Start: 11-28-2024 Urine microalbumin profile DTaP,Tdap,Td Vaccine (1 - Tdap) [facility] Comment on above: Postponed from 1976 (Declined at t his time) Start: 11-20-2024 [facility] Start: 11-20-2024 End: 11-20-2024 [facility] Start: 10-28-2024 [facility] Start: 10-24-2024 Annual PCP Team Chronic Disease Visit Annual PCP Team Chronic Disease Visit [facility] Start: 10-21-2024 End: 10-21-2024 Patient encounter procedure 10/21/2024 9:00 AM EDT Office Visit Family Breonna Sty[facility] [address] [place] [address] Jagjit Cheema MD [address] [place] [id number] 1 mo follow up Family Breonna Styles Comment on above: 1 mo follow up Start: 10-18-2024 End: 01-17-2025 Platelets [#/volume] in Blood PLATELET COUNT Lab Routine Thrombocytopenia Expected: 10/18/2024, Expires: 01/17/2025 [facility] Work Phone: Comment on above: Expected: 10/18/2024, Expires: Start: 10-18-2024 End: 10-18-2024 ambulatory 10/18/2024 7:30 AM EDT Results Only Ste[facility] Draw Station [address] [place] [address] [facility] Draw Station Start: 10-14-2024 DIABETES SCREEN DIABETES SCREEN [facility] Start: 10-14-2024 End: 10-14-2024 Patient encounter procedure 10/14/2024 7:40 AM EDT Office Visit [facility]ani [address] [place] [address] Susan Kerr APRN.BIOSOLIDS MANAGEMENT TECHNICIAN [address] [place] [address] 1 month BP check [facility] Breonna Styles Comment on above: 1 month BP check Start: 09-23-2024 End: 09-23-2024 Patient encounter procedure 09/23/2024 9:40 AM EDT Office Visit [facility] Breonna Styles [address] [place] [address] Jagjit Cheema MD [address] [place] [id number] Switch meds. See TE 09/19/24. Family Breonna Sty[facility] Comment on above: Switch meds. See TE 09/19/24. Start: 09-11-2024 End: 12-11-2024 CBC W Auto Differential panel - Blood COMPLETE BLOOD COUNT AND DIFFERENTIAL Lab Routine Fatigue, unspecified type Expected: 09/11/2024, Expires: 12/11/2024 [facility] Comment on above: Expected: 09/11/2024, Expires: Start: 09-11-2024 End: 12-11-2024 Comprehensive metabolic 2000 panel - Serum or Plasma COMPREHENSIVE METABOLIC PANEL Lab Routine Fatigue, unspecified type Expected: 09/11/2024, Expires: 12/11/2024 [facility] Comment on above: Expected: 09/11/2024, Expires: Start: 09-11-2024 End: 12-11-2024 Erythrocyte sedimentation rate SEDIMENTATION RATE, WESTERGREN Lab Routine Fatigue, unspecified type Expected: 09/11/2024, Expires: 12/11/2024 [facility] Comment on above: Expected: 09/11/2024, Expires: Start: 09-11-2024 End: 12-11-2024 Lipid 1996 panel - Serum or Plasma LIPID PANEL, FASTING Lab Routine Hyperlipidemia, unspecified hyperlipidemia type Expected: 09/11/2024, Expires: 12/11/2024 [facility] Comment on above: Expected: 09/11/2024, Expires: Start: 09-11-2024 End: 12-11-2024 T4/FTI/T4U T4/FTI/T4U Lab Routine Fatigue, unspecified type Expected: 09/11/2024, Expires: 12/11/2024 [facility] Comment on above: Expected: 09/11/2024, Expires: Start: 09-11-2024 End: 12-11-2024 Thyrotropin [Units/volume] in Serum or Plasma THYROID STIMULATING HORMONE Lab Routine Fatigue, unspecified type Expected: 09/11/2024, Expires: 12/11/2024 [facility] Work Phone: Comment on above: Expected: 09/11/2024, Expires: Start: 09-11-2024 End: 09-11-2024 Patient encounter procedure Family Medicine [facility] Comment on above: 6 month follow up 6 month follow up/re view for c-pap supplies Start: 03-20-2025 Hepatitis B surface antibody level LDL Cholesterol [facility] Start: 09-04-2024 Annual PCP Team Chronic Disease Visit Annual PCP Team Chronic Disease Visit [facility] Start: 07-26-2024 Annual PCP Team Chronic Disease Visit Annual PCP Team Chronic Disease Visit [facility] Start: 07-26-2024 RSV Vaccine (1 - 1-dose 60+ series) RSV Vaccine (1 - 1-dose 60+ series) [facility] Comment on above: Postponed from 2017 (Declined at t his time) Start: 07-26-2024 RSV Vaccine (1 - Risk 60-74 years 1-dose series) RSV Vaccine (1 - Risk 60-74 years 1-dose series) [facility] Comment on above: Postponed from 2017 (Declined at t his time) Start: 07-09-2024 End: 10-08-2024 Hemoglobin A1c in Blood HEMOGLOBIN A1C Lab Routine Hyperglycemia Hypokalemia Expected: 07/09/2024, Expires: 10/08/2024 [facility] Comment on above: Expected: 07/09/2024, Expires: Start: 07-09-2024 End: 10-08-2024 Potassium [Moles/volume] in Serum or Plasma POTASSIUM Lab Routine Hyperglycemia Hypokalemia Expected: 07/09/2024, Expires: 10/08/2024 [facility] Work Phone: Comment on above: Expected: 07/09/2024, Expires: Start: 07-08-2024 End: 07-08-2024 Patient encounter procedure 07/08/2024 9:00 AM EST Office Visit Family Breonna Sty[facility] [address] [place] [address] Jagjit Cheema MD [address] [place] [id number] pneumonia follow up [facility] Breonna Styles Comment on above: pneumonia follow up Start: 06-24-2024 End: 09-23-2024 Basic metabolic 2000 panel - Serum or Plasma [facility] Comment on above: Expected: 06/24/2024, Expires: Start: 06-24-2024 End: 09-23-2024 CBC W Auto Differential panel - Blood [facility] Comment on above: Expected: 06/24/2024, Expires: Start: 06-24-2024 End: 06-24-2024 Patient encounter procedure 06/24/2024 9:00 AM EST Office Visit Family Medicine [facility] [address] [place] [address] Jagjit Cheema MD [address] [place] [id number] recheck pneumonia Family Medicine [facility] Comment on above: recheck pneumonia Start: 06-19-2024 Advance Directive Discussion Advance Directive Discussion [facility] Start: 06-18-2024 Advance Directive Discussion Advance Directive Discussion [facility] Comment on above: Postponed from 06/19/2023 (Declined at t his time) Start: 06-04-2024 DIABETES SCREEN DIABETES SCREEN [facility] Start: 04-26-2024 End: 07-26-2024 Hemoglobin A1c in Blood [facility] Work Phone: Comment on above: Expected: 04/26/2024, Expires: Start: 04-25-2024 End: 07-25-2024 Comprehensive metabolic 2000 panel - Serum or Plasma [facility] Work Phone: Comment on above: Expected: 04/25/2024, Expires: Start: 04-03-2024 BP Controlled (<130/80) BP Controlled (<130/80) [facility] Start: 03-13-2024 End: 03-13-2024 Patient encounter procedure 03/13/2024 9:00 AM EDT Office Visit Family Breonna Styles [address] [place] [address] Jagjit Cheema MD [address] [place], [place] [phone] follow up Family Breonna Styles Comment on above: follow up Start: 03-08-2024 Subsequent hospital visit by physician 03/08/2024 2:56 PM EDT Hospital Encounter [facility] [address] [place] [address] Left lower quadrant abdominal pain [R10.32] [facility] Comment on above: Left lower quadrant abdominal pain [R10. 32] Start: 03-08-2024 End: 06-07-2024 Bacteria identified in Urine by Culture URINE CULTURE Microbiology Routine Chronic RLQ pain Left lower quadrant abdominal pain Expected: 03/08/2024, Expires: 06/07/2024 [facility] Comment on above: Expected: 03/08/2024, Expires: Start: 03-08-2024 End: 06-07-2024 Comprehensive metabolic 2000 panel - Serum or Plasma [facility] Work Phone: Comment on above: Expected: 03/08/2024, Expires: Start: 03-08-2024 End: 06-07-2024 Urinalysis complete panel - Urine URINALYSIS, WITH MICROSCOPIC Lab Routine Chronic RLQ pain Left lower quadrant abdominal pain Expected: 03/08/2024, Expires: 06/07/2024 [facility] Comment on above: Expected: 03/08/2024, Expires: Start: 03-08-2024 End: 03-08-2024 Patient encounter procedure 03/08/2024 9:40 AM EDT Office Visit Family Breonna Styles [address] [place] [address] Jagjit Cheema MD [address] [place], [place] [id number] 6 month follow up [facility] Breonna Styles Comment on above: 6 month follow up Start: 02-18-2024 Covid-19 Vaccine ( season) Covid-19 Vaccine () [facility] Start: 02-18-2024 Influenza vaccination Influenza Vaccine (#1) [facility] Start: 01-26-2024 End: 01-26-2024 Patient encounter procedure 01/26/2024 8:00 AM EDT Office Visit [facility] Breonna Styles [address] [facility] [place] [address] Susan Kerr, COMFORT.BIOSOLIDS MANAGEMENT TECHNICIAN [address] [place] [address] 4 week follow up bronchitis/fatigue. possibly adjusting strattera depending. Family Medicine [facility] Comment on above: 4 week follow up bronchitis/fatigue. pos sibly adjusting strattera depending. Start: 01-24-2024 ANNUAL PCP TEAM CHRONIC DISEASE VISIT ANNUAL PCP TEAM CHRONIC DISEASE VISIT [facility] Start: 12-22-2023 End: 12-22-2023 Patient encounter procedure 12/22/2023 9:40 AM EDT Office Visit Family Breonna Styles [address] [place] [address] Jagjit Cheema MD [address] [place] [address] ADD Medication advice Family Breonan Styles Comment on above: ADD Medication advice Start: 12-20-2023 ANNUAL PCP TEAM CHRONIC DISEASE VISIT ANNUAL PCP TEAM CHRONIC DISEASE VISIT [facility] Start: 12-20-2023 End: 12-20-2023 ambulatory 12/20/2023 8:00 AM EDT Results Only Stephani [facility] Draw Station [address] [place] [address] [place] [facility] Draw Station Start: 12-15-2023 ANNUAL PCP TEAM CHRONIC DISEASE VISIT ANNUAL PCP TEAM CHRONIC DISEASE VISIT [facility] Start: 12-13-2023 End: 03-13-2024 Basic metabolic 2000 panel - Serum or Plasma BASIC METABOLIC PANEL Lab Routine Hypokalemia Expected: 12/13/2023, Expires: 03/13/2024 [facility] Comment on above: Expected: 12/13/2023, Expires: Start: 11-24-2023 Covid-19 Vaccine () Covid-19 Vaccine () [facility] Start: 10-26-2023 ANNUAL PCP TEAM CHRONIC DISEASE VISIT ANNUAL PCP TEAM CHRONIC DISEASE VISIT [facility] Start: 09-27-2023 Hepatitis B surface antibody level LDL CHOLESTEROL [facility] Start: 09-23-2023 ANNUAL PCP TEAM CHRONIC DISEASE VISIT ANNUAL PCP TEAM CHRONIC DISEASE VISIT [facility] Start: 09-23-2023 COVID-19 VACCINE (4 - Booster for Pfizer series) COVID-19 VACCINE (4 - Booster for Pfizer series) [facility] Comment on above: Postponed from 06/28/2021 (Declined at t his time) Start: 09-23-2023 COVID-19 VACCINE (4 - Pfizer series) COVID-19 VACCINE (4 - Pfizer series) [facility] Comment on above: Postponed from 06/28/2021 (Declined at t his time) Start: 09-23-2023 SHINGRIX VACCINE (1 of 2) SHINGRIX VACCINE (1 of 2) [facility] Comment on above: Postponed from 09/22/2007 (Declined at t his time) Start: 09-23-2023 Urine microalbumin profile [facility] Comment on above: Postponed from 1976 (Declined at t his time) Start: 09-22-2023 Pneumococcal Vaccine: 65+ (2 of 2 - PCV) Pneumococcal Vaccine: 65+ (2 of 2 - PCV) [facility] Comment on above: Postponed from 04/19/2013 (Postponed To Appropriate Date) Postponed from 09/21 (Postponed To Appropriate Date) Start: 09-22-2023 PNEUMOCOCCAL: 65+ (2 - PCV) PNEUMOCOCCAL: 65+ (2 - PCV) [facility] Comment on above: Postponed from 04/19/2013 (Postponed To Appropriate Date) Start: 09-07-2023 End: 12-07-2023 Hemoglobin A1c in Blood HGB A1C Lab Routine Hyperglycemia Expected: 09/07/2023, Expires: 12/07/2023 [facility] Work Phone: Comment on above: Expected: 09/07/2023, Expires: 4 Start: 09-05-2023 End: 12-05-2023 CBC W Auto Differential panel - Blood CBC + DIFF Lab Routine Fatigue, unspecified type Expected: 09/05/2023, Expires: 12/05/2023 [facility] Work Phone: Comment on above: Expected: 09/05/2023, Expires: 4 Start: 09-05-2023 End: 12-05-2023 Comprehensive metabolic 2000 panel - Serum or Plasma COMP METABOLIC PANEL Lab Routine Fatigue, unspecified type Expected: 09/05/2023, Expires: 12/05/2023 [facility] Work Phone: Comment on above: Expected: 09/05/2023, Expires: 4 Start: 09-05-2023 End: 12-05-2023 Lipid 1996 panel - Serum or Plasma LIPID PANEL BASIC Lab Routine Hyperlipidemia, unspecified hyperlipidemia type Expected: 09/05/2023, Expires: 12/05/2023 [facility] Work Phone: Comment on above: Expected: 09/05/2023, Expires: 4 Start: 09-05-2023 End: 12-05-2023 Testosterone [Mass/volume] in Serum or Plasma TESTOSTERONE TOTAL Lab Routine Testosterone deficiency Fatigue, unspecified type Expected: 09/05/2023, Expires: 12/05/2023 [facility] Work Phone: Comment on above: Expected: 09/05/2023, Expires: 4 Start: 09-05-2023 End: 12-05-2023 Thyrotropin [Units/volume] in Serum or Plasma TSH BLD Lab Routine Acute constipation Expected: 09/05/2023, Expires: 12/05/2023 [facility] Work Phone: Comment on above: Expected: 09/05/2023, Expires: 4 Start: 06-19-2023 Behavioral Health Screening Behavioral Health Screening [facility] Start: 04-20-2023 Hepatitis B surface antibody level LDL CHOLESTEROL [facility] Start: 02-17-2023 Covid-19 Vaccine () Covid-19 Vaccine () [facility] Start: 02-17-2023 Influenza vaccination [facility] Start: 01-23-2023 End: 03-25-2023 ALBUMIN/CREAT RATIO RND UR ALBUMIN/CREAT RATIO RND UR Lab Routine Recurrent UTI (urinary tract infection) Expected: 01/23/2023, Expires: 03/25/2023 [facility] Work Phone: Comment on above: Expected: 01/23/2023, Expires: 3 Start: 01-23-2023 End: 03-25-2023 Basic metabolic 2000 panel - Serum or Plasma BASIC METABOLIC PNL Lab Routine Essential hypertension, benign Expected: 01/23/2023, Expires: 03/25/2023 [facility] Work Phone: Comment on above: Expected: 01/23/2023, Expires: Start: 01-23-2023 End: 03-25-2023 Thyrotropin [Units/volume] in Serum or Plasma TSH BLD Lab Routine Fatigue, unspecified type Expected: 01/23/2023, Expires: 03/25/2023 [facility] Work Phone: Comment on above: Expected: 01/23/2023, Expires: Start: 01-23-2023 End: 03-25-2023 Urinalysis complete panel - Urine URINALYSIS, WITH MICROSCOPIC Lab Routine Recurrent UTI (urinary tract infection) Expected: 01/23/2023, Expires: 03/25/2023 [facility] Work Phone: Comment on above: Expected: 01/23/2023, Expires: Start: 12-19-2022 End: 02-18-2023 Basic metabolic 2000 panel - Serum or Plasma [facility] Work Phone: Comment on above: Expected: 12/19/2022, Expires: Start: 12-16-2022 Patient discharge [facility] Start: 12-15-2022 Following clinical pathway protocol [facility] Start: 12-15-2022 Assessment of risk of venous thromboembolism [facility] Start: 12-15-2022 Continuous positive airway pressure ventilation treatment [facility] Start: 12-15-2022 Fall prevention [facility] Start: 12-15-2022 Incentive spirometry [facility] Start: 12-15-2022 Inhalation therapy procedure [facility] Start: 12-15-2022 Insertion of catheter into peripheral vein [facility] Start: 12-15-2022 Introduction of urinary catheter [facility] Start: 12-15-2022 Measuring intake and output [facility] Start: 12-15-2022 Oxygen therapy [facility] Start: 12-15-2022 Providing care according to standard [facility] Start: 12-15-2022 Provision of activity privileges [facility] Start: 12-15-2022 Referral to service [facility] Start: 12-15-2022 [facility] Start: 12-15-2022 Verification routine [facility] Start: 12-15-2022 Admission procedure [facility] Start: 12-15-2022 Respiratory Panel (PCR) Respiratory Panel (PCR) [facility] Start: 12-15-2022 Consultation [facility] Start: 12-15-2022 Patient referral to dietitian [facility] Start: 12-14-2022 End: 12-14-2022 Blood culture [facility] Start: 12-14-2022 End: 12-14-2022 [facility] Start: 12-14-2022 Bacteria identified in Blood by Culture Blood Culture [facility] Start: 12-14-2022 Urine culture Urine Culture [facility] Start: 11-29-2022 ANNUAL PCP TEAM CHRONIC DISEASE VISIT ANNUAL PCP TEAM CHRONIC DISEASE VISIT [facility] Start: 09-22-2022 End: 11-22-2022 25-hydroxyvitamin D3 [Mass/volume] in Serum or Plasma VITAMIN D 25 HYDROXY Lab Routine Hyperlipidemia, unspecified hyperlipidemia type 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 Myalgia Disorder of bone, unspecified Expected: 09/22/2022, Expires: 11/22/2022 [facility] Work Phone: Comment on above: Expected: 09/22/2022, Expires: 3 Start: 09-22-2022 End: 11-22-2022 C reactive protein [Mass/volume] in Serum or Plasma C-REACTIVE PROTEIN (CRP) Lab Routine Myalgia Expected: 09/22/2022, Expires: 11/22/2022 [facility] Work Phone: Comment on above: Expected: 09/22/2022, Expires: 3 Start: 09-22-2022 End: 11-22-2022 CBC W Auto Differential panel - Blood CBC + DIFF Lab Routine Essential hypertension, benign Expected: 09/22/2022, Expires: 11/22/2022 [facility] Work Phone: Comment on above: Expected: 09/22/2022, Expires: 3 Start: 09-22-2022 End: 11-22-2022 Comprehensive metabolic 2000 panel - Serum or Plasma COMP METABOLIC PANEL Lab Routine Essential hypertension, benign Expected: 09/22/2022, Expires: 11/22/2022 [facility] Work Phone: Comment on above: Expected: 09/22/2022, Expires: 3 Start: 09-22-2022 End: 11-22-2022 Creatine kinase [Enzymatic activity/volume] in Serum or Plasma CK CREATINE KINASE Lab Routine Essential hypertension, benign Expected: 09/22/2022, Expires: 11/22/2022 [facility] Work Phone: Comment on above: Expected: 09/22/2022, Expires: 3 Start: 09-22-2022 End: 11-22-2022 Erythrocyte sedimentation rate SED RATE WESTERGREN Lab Routine Myalgia Expected: 09/22/2022, Expires: 11/22/2022 [facility] Work Phone: Comment on above: Expected: 09/22/2022, Expires: 3 Start: 09-22-2022 End: 11-22-2022 Lipid 1996 panel - Serum or Plasma LIPID PANEL BASIC Lab Routine Hyperlipidemia, unspecified hyperlipidemia type Expected: 09/22/2022, Expires: 11/22/2022 [facility] Work Phone: Comment on above: Expected: 09/22/2022, Expires: 3 Start: 2022 Pneumococcal Vaccine: 65+ (2 of 2 - PCV) Pneumococcal Vaccine: 65+ (2 of 2 - PCV) [facility] Start: 07-26-2022 ANNUAL PCP TEAM CHRONIC DISEASE VISIT ANNUAL PCP TEAM CHRONIC DISEASE VISIT [facility] [facility] Start: 06-19-2022 DEPRESSION ASSESSMENT DEPRESSION ASSESSMENT [facility] Start: 05-07-2022 [facility] Start: 04-19-2022 Medicare Annual Wellness Visit Medicare Annual Wellness Visit [facility] Start: 02-17-2022 Influenza vaccination [facility] Start: 01-28-2022 Colonoscopy COLONOSCOPY [facility] Start: 01-28-2022 COLORECTAL CANCER SCREENING COLORECTAL CANCER SCREENING [facility] Start: 01-24-2022 Colonoscopy COLONOSCOPY [facility] Start: 01-24-2022 COLORECTAL CANCER SCREENING COLORECTAL CANCER SCREENING [facility] Start: 10-14-2021 End: 12-14-2021 CBC panel - Blood by Automated count [facility] Work Phone: Comment on above: Expected: 10/14/2021, Expires: 2 Start: 10-14-2021 End: 12-14-2021 Comprehensive metabolic 2000 panel - Serum or Plasma [facility] Work Phone: Comment on above: Expected: 10/14/2021, Expires: 2 Start: 10-14-2021 End: 12-14-2021 Thyrotropin [Units/volume] in Serum or Plasma [facility] Work Phone: Comment on above: Expected: 10/14/2021, Expires: 2 Start: 10-14-2021 End: 12-14-2021 VITAMIN D 25 HYDROXY [facility] Work Phone: Comment on above: Expected: 10/14/2021, Expires: 2 Start: 08-31-2021 COVID-19 VACCINE (4 - Booster for Pfizer series) COVID-19 VACCINE (4 - Booster for Pfizer series) [facility] Start: 06-28-2021 COVID-19 VACCINE (4 - Booster for Pfizer series) COVID-19 VACCINE (4 - Booster for Pfizer series) [facility] Start: 06-19-2021 DEPRESSION ASSESSMENT DEPRESSION ASSESSMENT [facility] Start: 02-17-2021 Influenza vaccination INFLUENZA (#1) [facility] Start: 12-22-2020 Hepatitis B surface antibody level LDL CHOLESTEROL [facility] Start: 10-26-2019 FECAL OCCULT BLOOD FECAL OCCULT BLOOD [facility] Start: 10-26-2019 Screening for malignant neoplasm of colon Fecal Occult Blood [facility] Start: 05-22-2019 Adult depression screening assessment DEPRESSION SCREENING [facility] Start: 2017 RSV Vaccine (1 - 1-dose 60+ series) RSV Vaccine (1 - 1-dose 60+ series) [facility] Start: 2017 RSV Vaccine (1 - Risk 60-74 years 1-dose series) RSV Vaccine (1 - Risk 60-74 years 1-dose series) [facility] Start: 06-13-2017 End: 06-13-2017 Appointment Appointment [facility] Work Phone: Start: 12-16-2016 End: 06-01-2017 *Hepatic Function Panel *Hepatic Function Panel [facility] Work Phone: Start: 12-16-2016 End: 06-01-2017 Lipid panel [AGGREGATE] *Lipid Profile CC PCP [facility] Work Phone: Start: 12-14-2016 End: 12-14-2016 Follow Up Appt 6 months Follow Up Appt 6 months [facility] Work Phone: Start: 12-14-2016 End: 06-01-2017 Follow Up Appt Other Follow Up Appt Other [facility] Work Phone: Start: 12-14-2016 End: 12-14-2016 MMM MMM [facility] Work Phone: Start: 08-17-2016 End: 08-17-2016 Follow Up Appt 3 months Follow Up Appt 3 months [facility] Work Phone: Start: 08-17-2016 End: 08-17-2016 MMM MMM [facility] Work Phone: Start: 01-04-2016 End: 01-04-2016 Ct thorax w/dye CT Chest with Contrast [facility] Work Phone: Start: 01-04-2016 End: 01-04-2016 Echocardiography Echocardiogram (complete) [facility] Work Phone: Start: 01-04-2016 End: 01-04-2016 Electrocardiogram, complete EKG (In office) [facility] Work Phone: Start: 01-04-2016 End: 01-04-2016 Follow Up Appt Other Follow Up Appt Other [facility] Work Phone: Start: 01-04-2016 End: 01-04-2016 Nuclear stress test -exercise Nuclear stress test -exercise [facility] Work Phone: Start: 10-19-2015 End: 11-22-2016 *Hepatic Function Panel *Hepatic Function Panel [facility] Work Phone: Start: 10-19-2015 End: 11-22-2016 Lipid panel [AGGREGATE] *Lipid Profile CC PCP [facility] Work Phone: Start: 04-24-2015 End: 04-20-2015 *Hepatic Function Panel *Hepatic Function Panel [facility] Work Phone: Start: 04-24-2015 End: 04-20-2015 Lipid panel [AGGREGATE] *Lipid Profile CC PCP [facility] Work Phone: Start: 03-31-2015 End: 04-20-2015 *Hepatic Function Panel *Hepatic Function Panel [facility] Work Phone: Start: 03-31-2015 End: 03-31-2015 Follow Up Appt 6 months Follow Up Appt 6 months [facility] Work Phone: Start: 03-31-2015 End: 04-20-2015 Lipid panel [AGGREGATE] *Lipid Profile CC PCP [facility] Work Phone: Start: 03-31-2015 End: 03-31-2015 PFM PFM [facility] Work Phone: Start: 03-31-2015 End: 04-20-2015 Thyroid stimulating hormone (TSH) *TSH [facility] Work Phone: Start: 03-31-2015 End: 04-20-2015 Thyroxine (T4) *T4 (Total) [facility] Work Phone: Start: 01-08-2015 End: 01-09-2015 BNP *Brain Natriuretic Peptide BNP [facility] Work Phone: Start: 01-08-2015 End: 03-25-2015 Follow Up Appt Other Follow Up Appt Other [facility] Work Phone: Start: 09-29-2014 End: 10-22-2014 *Hepatic Function Panel *Hepatic Function Panel [facility] Work Phone: Start: 09-29-2014 End: 10-22-2014 Lipid panel [AGGREGATE] *Lipid Profile CC PCP [facility] Work Phone: Start: 09-22-2014 End: 09-22-2014 Follow Up Appt 6 months Follow Up Appt 6 months [facility] Work Phone: Start: 09-22-2014 End: 09-22-2014 Follow Up BP Check Follow Up BP Check [facility] Work Phone: Start: 09-22-2014 End: 09-22-2014 MMM MMM [facility] Work Phone: Start: 03-24-2014 End: 03-24-2014 Follow Up Appt 6 months Follow Up Appt 6 months [facility] Work Phone: Start: 03-24-2014 End: 03-24-2014 Follow Up Appt Other Follow Up Appt Other [facility] Work Phone: Start: 03-24-2014 End: 03-24-2014 PFM PFM [facility] Work Phone: Start: 03-19-2014 End: 03-31-2014 *Hepatic Function Panel *Hepatic Function Panel [facility] Work Phone: Start: 03-19-2014 End: 03-31-2014 Lipid panel [AGGREGATE] *Lipid Profile CC PCP [facility] Work Phone: Start: 12-04-2013 End: 12-04-2013 *BMP *BMP [facility] Work Phone: Start: 12-04-2013 End: 12-04-2013 CBC W Auto Differential panel - Blood *CBC without Diff [facility] Work Phone: Start: 12-04-2013 End: 03-25-2015 Chest x-ray X-Ray, Chest, PA & Lateral [facility] Work Phone: Start: 12-04-2013 End: 12-04-2013 Coagulation factor induced.INR assay in platelet poor plasma *PT/INR [facility] Phone: Start: 12-04-2013 End: 03-12-2014 Electrocardiogram, complete EKG (In office) [facility] Work Phone: Start: 12-04-2013 End: 12-04-2013 Left Heart Cath Left Heart Cath [facility] Work Phone: Start: 12-02-2013 End: 12-05-2013 Stress Echocardiogram (treadmill) Stress Echocardiogram (treadmill) [facility] Phone: Start: 10-30-2013 End: 01-08-2015 Follow Up Appt Other Follow Up Appt Other [facility] Work Phone: Start: 09-04-2013 End: 09-16-2013 *Hepatic Function Panel *Hepatic Function Panel [facility] Work Phone: Start: 09-04-2013 End: 09-04-2013 Follow Up Appt 6 months Follow Up Appt 6 months [facility] Work Phone: Start: 09-04-2013 End: 01-08-2015 Follow Up Appt Other Follow Up Appt Other [facility] Work Phone: Start: 09-04-2013 End: 09-16-2013 Lipid panel [AGGREGATE] *Lipid Profile CC PCP [facility] Work Phone: Start: 09-04-2013 End: 09-04-2013 MMM MMM [facility] Work Phone: Start: 06-17-2013 End: 09-16-2013 *Hepatic Function Panel *Hepatic Function Panel [facility] Phone: Start: 06-17-2013 End: 09-16-2013 Lipid panel [AGGREGATE] *Lipid Profile CC PCP [facility] Work Phone: Start: 04-19-2013 PNEUMOCOCCAL (2 - PCV) PNEUMOCOCCAL (2 - PCV) [facility] Start: 01-30-2013 End: 01-30-2013 Arterial exam Arterial exam [facility] Work Phone: Start: 01-30-2013 End: 01-30-2013 Follow Up Appt 6 months Follow Up Appt 6 months [facility] Work Phone: Start: 01-30-2013 End: 01-30-2013 PFM PFM [facility] Work Phone: Start: 01-30-2013 End: 01-30-2013 Pulmonary Fuction Test - complete Pulmonary Fuction Test - complete [facility] Work Phone: Start: 12-17-2012 End: 12-17-2012 *BMP *BMP [facility] Work Phone: Start: 12-17-2012 End: 12-02-2013 CBC W Auto Differential panel - Blood *CBC without Diff [facility] Work Phone: Start: 12-17-2012 End: 12-02-2013 Chest x-ray X-Ray, Chest, PA & Lateral [facility] Work Phone: Start: 12-17-2012 End: 12-02-2013 Coagulation factor induced.INR assay in platelet poor plasma [facility] Work Phone: Start: 12-17-2012 End: 12-17-2012 Electrocardiogram, complete EKG (In office) [facility] Work Phone: Start: 12-17-2012 End: 12-02-2013 Follow Up Appt Other Follow Up Appt Other [facility] Work Phone: Start: 12-17-2012 End: 12-02-2013 Left Heart Cath Left Heart Cath [facility] Work Phone: Start: 12-17-2012 End: 12-02-2013 PFM PFM [facility] Work Phone: Start: 2012 End: 12-17-2012 *Hepatic Function Panel *Hepatic Function Panel [facility] Work Phone: Start: 2012 End: 2012 Cardiac Rehab Cardiac Rehab [facility] Work Phone: Start: 2012 End: 10-23-2012 Electrocardiogram, complete EKG (In office) [facility] Work Phone: Start: 2012 End: 2012 Follow Up Appt Other Follow Up Appt Other [facility] Work Phone: Start: 2012 End: 12-17-2012 Lipid panel [AGGREGATE] *Lipid Profile [facility] Work Phone: Start: 09-03-2012 End: 09-04-2012 *BMP *BMP [facility] Work Phone: Start: 09-03-2012 End: 09-03-2012 aPTT *PTT-Partial Thromboplastin Time [facility] Work Phone: Start: 09-03-2012 End: 09-03-2012 aPTT Coag time (PPP) *PTT-Partial Thromboplastin Time [facility] Work Phone: Start: 09-03-2012 End: 09-04-2012 CBC W Auto Differential panel - Blood *CBC without Diff [facility] Work Phone: Start: 09-03-2012 End: 09-04-2012 Chest x-ray X-Ray, Chest, PA & Lateral [facility] Work Phone: Start: 09-03-2012 End: 09-03-2012 Coagulation factor induced.INR assay in platelet poor plasma *PT/INR [facility] Work Phone: Start: 09-03-2012 End: 09-04-2012 Electrocardiogram, complete EKG (In office) [facility] Work Phone: Start: 09-03-2012 End: 2012 Follow Up Appt Other Follow Up Appt Other [facility] Work Phone: Start: 09-03-2012 End: 09-04-2012 Left Heart Cath Left Heart Cath [facility] Work Phone: Start: 09-03-2012 End: 2012 MMM MMM [facility] Work Phone: Start: 08-21-2012 End: 2012 *BMP *BMP [facility] Work Phone: Start: 08-21-2012 End: 2012 aPTT *PTT-Partial Thromboplastin Time [facility] Work Phone: Start: 08-21-2012 End: 2012 aPTT Coag time (PPP) *PTT-Partial Thromboplastin Time [facility] Work Phone: Start: 08-21-2012 End: 2012 CBC W Auto Differential panel - Blood *CBC without Diff [facility] Work Phone: Start: 08-21-2012 End: 2012 Chest x-ray X-Ray, Chest, PA & Lateral [facility] Work Phone: Start: 08-21-2012 End: 2012 Coagulation factor induced.INR assay in platelet poor plasma *PT/INR [facility] Work Phone: Start: 08-21-2012 End: 2012 Electrocardiogram, complete EKG (In office) [facility] Work Phone: Start: 08-21-2012 End: 08-21-2012 Left Heart Cath Left Heart Cath [facility] Work Phone: Start: 07-18-2012 End: 07-18-2012 Echocardiography Echocardiogram (complete) [facility] Work Phone: Start: 07-18-2012 End: 07-18-2012 Electrocardiogram, complete EKG (In office) [facility] Work Phone: Start: 07-18-2012 End: 07-18-2012 Follow Up Appt 6 months Follow Up Appt 6 months [facility] Work Phone: Start: 07-18-2012 End: 07-18-2012 Nuclear stress test -exercise Nuclear stress test -exercise [facility] Work Phone: Start: 07-18-2012 End: 07-18-2012 PFM PFM [facility] Work Phone: Start: 09-22-2007 SHINGRIX VACCINE (1 of 2) SHINGRIX VACCINE (1 of 2) [facility] Start: 2002 COLOGUARD (FIT-DNA) COLOGUARD (FIT-DNA) [facility] Start: [address] COLONOGRAPHY [facility] Start: 2002 Screening for malignant neoplasm of colon [facility] Start: 2002 SIGMOIDOSCOPY SIGMOIDOSCOPY [facility] Start: 1976 Urine microalbumin profile [facility] Start: 09-22-1975 BP CONTROLLED (<130/80) BP CONTROLLED (<130/80) [facility] Start: 09-22-1975 HIV SCREENING HIV SCREENING [facility] 24 Hour ECG [facility] Work Phone: Acetaminophen [Mass/volume] in Unspecified specimen [facility] Ambulatory ECG [facility] Clostridioides diffi cile toxin genes [Presence] in Stool by ASHLEY with probe detection C. DIFFICILE PCR Lab Routine Diarrhea, unspecified type LLQ pain Chronic RLQ pain Ordered: 03/08/2024 [facility] Comment on above: Ordered: 03/08/2024 End: 04-07-2025 CT Abdomen and Pelvis W contrast IV [facility] Comment on above: 1 Occurrences starting 03/08/2024 until 04/07/2025 End: 01-11-2025 CTA Chest vessels WO and W contrast IV CTA CHEST (NONGATED) WO/W IVCON Radiology STAT Chest pain on breathing 1 Occurrences starting 12/13/2023 until 01/11/2025 [facility] Work Phone: Comment on above: 1 Occurrences starting 12/13/2023 until 01/11/2025 End: 01-11-2025 CTA Pulmonary arteries for pulmonary embolus W contrast IV CT CHEST W IVCON PE Radiology STAT Chest pain on breathing 1 Occurrences starting 12/13/2023 until 01/11/2025 [facility] Work Phone: Comment on above: 1 Occurrences starting 12/13/2023 until 01/11/2025 ENTERIC BACTERIAL PA AUBREE BY PCR ENTERIC BACTERIAL PANEL BY PCR Lab Routine Diarrhea, unspecified type Ordered: 03/08/2024 [facility] Comment on above: Ordered: 03/08/2024 FECAL LACTOFERRIN/LEUKOCYTES FECAL LACTOFERRIN/LEUKOCYTES Lab Routine Diarrhea, unspecified type Ordered: 03/08/2024 [facility] Comment on above: Ordered: 03/08/2024 End: 12-31-2025 Flexible sigmoidoscopy study COLONOSCOPY DIAGNOSTIC Endoscopy Routine Rectal bleeding 1 Occurrences starting 12/31/2024 until 12/31/2025 [facility] Work Phone: Comment on above: 1 Occurrences starting 12/31/2024 until 12/31/2025 Giardia lamblia+Cryptosporidium sp Ag [Presence] in Stool by Immunoassay CRYPTOSPORIDIUM AND GIARDIA ANTIGENS BY EIA Microbiology Routine Diarrhea, unspecified type Ordered: 03/08/2024 [facility] Comment on above: Ordered: 03/08/2024 Magnesium [Mass/volu me] in Serum or Plasma [facility] Heart Views W str ess and W radionuclide IV [facility] Work Phone: NM Heart Views W str ess and W radionuclide IV [facility] Patient Education [facility] Work Phone: Patient referral [facility] Work Phone: Respiratory pathogen s DNA and RNA panel - Respiratory specimen by ASHLEY with probe detection [facility] Work Phone: [facility] End: 07-24-2025 XR Chest PA and Lateral XR CHEST 2V FRONTAL/LAT Radiology Routine Bacterial pneumonia 1 Occurrences starting 06/24/2024 until 07/24/2025 [facility] Work Phone: Comment on above: 1 Occurrences starting 06/24/2024 until 07/24/2025 [facility] Immunizations Immunization Date Immunization Notes Care Provider Mookie morrison 11-29-2023 pneumococcal Conjuga te, unspecified formulation Jagjit Cheema MD Work Phone: [facility] Work Phone: 11-29-2023 pneumococcal conjuga te (PCV20) vaccine, 20 valent (PREVNAR 20) Jagjit Cheema MD Work Phone: [facility] 07-26-2023 COVID-19 vaccine, ag e 12+ yr, season (PFIZER-VaccibodyNTEnlighted) Jagjit Cheema MD Work Phone: [facility] 07-26-2023 influenza (HD-IIV4) vaccine, age 65+ yr, high dose, quadrivalent, PF (FLUZONE HIGH-DOSE) Jagjit Cheema MD Work Phone: [facility] 07-26-2023 influenza virus vacc ine, unspecified formulation Jagjit Cheema MD Work Phone: [facility] 05-03-2021 Covid (Pfizer) Dr. Jagjit marcum Work Phone: [facility] 09-14-2020 Covid (Pfizer) Dr. Jagjit marcum Work Phone: [facility] 08-24-2020 Covid (Pfizer) Dr. Jagjit marcum Work Phone: [facility] 07-11-2019 influenza, injectabl e, quadrivalent, preservative free [facility] 07-11-2019 influenza, seasonal, injectable Dr. Jagjit Cheema Work Phone: [facility] 07-11-2019 influenza, seasonal, injectable, preservative free Oliva Gutierrez PA-C Work Phone: [facility] 07-11-2019 influenza virus vacc ine, unspecified formulation Jagjit Cheema MD Work Phone: [facility] 05-01-2015 influenza, injectabl e, quadrivalent, preservative free [facility] 05-01-2015 influenza, seasonal, injectable Dr. Jagjit Cheema Work Phone: [facility] 05-01-2015 influenza, seasonal, injectable, preservative free Oliva SMITHC Work Phone: [facility] 04-29-2015 influenza, seasonal, injectable Oliva Mykeblanc PA-C Work Phone: [facility] 05-20-2013 influenza virus vacc ine, unspecified formulation Oliva Jeanblanc PA-C Work Phone: [facility] 04-19-[address] Jagjit Cheema Work Phone: [facility] 04-19-2013 influenza, seasonal, injectable, preservative free Oliva Mattanblanc PA-C Work Phone: [facility] 04-19-2012 pneumococcal polysaccharide vaccine, 23 valent Oliva Jeanblanc PA-C Work Phone: [facility] 04-19-[address] Apollo bill [place] Work Phone: [facility] Work Phone: 04-19-2012 pneumococcal vaccine , unspecified formulation [facility] 03-18-2011 influenza virus vacc ine, unspecified formulation Oliva Jeanblanc PA-C Work Phone: [facility] Work Phone: 03-18-2011 pneumococcal polysaccharide vaccine, 23 valent Oliva Jeanblanc PA-C Work Phone: [facility] Work Phone: Payers Date Payer Category Payer Self-pay [id number] 2022 [facility] SUPPLE[facility] [id number] 2022 Unknown ANTHEM ANTHEM ME DICARE SUPPLEMENT [id number] 2022-Present [phone] [address] [place] [address] Indemnity [id number] 2022 Unknown [id number] 2022 Medicare [id number] 2022 Medicare [id number] 2019 Private Health Insurance [employer] Emma KOKI PPO [id number] 2019-Present [phone] [address] [place] [address] PPO [id number] 2019 Private Health Insurance [id number] 2013 Private Health Insurance [id number] Unknown [id number] Unknown [id number] Unknown [id number] Unknown [id number] Unknown [id number] Unknown [id number] Unknown [id number] Unknown [id number] Social History Date Type Detail Facility Start: 02-12-2022 End: 03-08-2024 Tobacco smoking status NHIS Ex-smoker [facility] Work Phone: Start: 02-08-1982 End: 02-08-1987 History of tobacco use Current smoker [facility] Start: 02-08-1982 End: 02-08-1987 History of tobacco use Cigarette Smoker [facility] End: 12-03-2017 History of tobacco use Chews Tobacco [facility] Start: 09-04-2021 End: 12-31-2024 Alcohol intake Current drinker of alcohol (finding) [facility] Start: 05-24-2020 End: 09-04-2021 Alcohol intake [facility] Start: 05-04-2016 History SDOH Alcohol Comment rare [facility] Start: 09-06-2013 End: 02-12-2022 Tobacco Comment patient smoked for a few months in 2006 [facility] Start: 1955 Sex Assigned At Not on file [facility] Start: 03-29-2020 End: 12-11-2021 Exposure to SARS-CoV-2 (event) Not sure [facility] Start: 10-20-2021 End: 07-05-2023 Tobacco smoking status ARIS Unknown if ever smoked [facility] Start: 02-29-2020 Occasional [facility] Start: 02-28-2020 None [facility] Start: 02-29-2020 Spouse/ Significant Other [facility] Start: 02-29-2020 Non-smoker [facility] Start: 1955 Sex Assigned At Male [facility] Start: 11-29-2021 History SDOH Alcohol Frequency 98 [facility] Start: 11-29-2021 History SDOH Physical Activity DPW 0 [facility] Start: 11-29-2021 History SDOH Housing Unable to Pay 3 [facility] Start: 04-30-2019 End: 02-12-2022 Tobacco use and exposure User of smokeless tobacco [facility] Work Phone: Start: 12-15-2022 End: 03-08-2024 Tobacco use and exposure Former smokeless tobacco user [facility] Start: 12-19-2022 End: 11-18-2024 Alcohol intake Ex-drinker (finding) [facility] Start: 12-15-2022 Tobacco Comment patient smoked for a few months in 2006Quit chew June 2022 [facility] Start: 05-24-2020 End: 11-29-2021 Social connection and isolation panel [facility] In a typical week, h ow many times do you talk on the telephone with family, friends, or neighbors? Patient refused [facility] Are you now , , , , never or living with a partner? Refused [facility] (I/We) worried wheth er (my/our) food would run out before (I/we) got money to buy more. DK or Refused [facility] Do you belong to any clubs or organizations such as rastafari groups, unions, [employer] or athletic groups, or school groups? Yes [facility] Are you now , , , , never or living with a partner? [facility] How often to you hav e a drink containing alcohol? Monthly or less [facility] How many standard dr inks containing alcohol do you have on a typical day? 1 or 2 [facility] How often do you hav e 6 or more drinks on 1 occasion? Never [facility] Do you feel stress - tense, restless, nervous, or anxious, or unable to sleep at night because your mind is troubled all the time - these days [OSQ] Very much [facility] (I/We) worried wheth er (my/our) food would run out before (I/we) got money to buy more. Never true [facility] Start: 12-31-2024 Alcohol Comment occ [facility] Medical Equipment Procedure Code Equipment Code Equipment Original Text Equipment Identifier Dates Pros Penl Ams 70 0 Acc Kt - [id number] Start: 01-29-2015 Pros Penl Ams 70 0ms 18cm - [id number] Start: 01-29-2015 Pros Penl 700cx 3cm Rear Tip - [id number] Start: 01-29-2015 Pros Penl Ams 70 0ms Resvr 65ml - [id number] Start: 01-29-2015 PENILE IMPLANT FDA Start: [...] 6cm Small Collagen Surgical Patch [facility] - [id number] Start: 07-19-2023 PENILE IMPLANT FDA Start: Inject 1 Each intramuscularly one time a week. Uses 4 syringes per month with testosterone injections [id number] Start: 06-11-2019 End: 06-10-2020 PENILE IMPLANT FDA Start: PENILE IMPLANT FDA Start: PENILE IMPLANT FDA Start: PENILE IMPLANT FDA Start: Goals Date Patient Goal Desired Activity /State Functional Status Date Assessment Result Facility 12-16-2022 Functional status Ambulates;Up a d melony;Bathroom Privilege [facility] Work Phone: 01-30-2015 Are you deaf, or do you have serious difficulty hearing No 01/30/2015 8:32 AM Jany NewRn) (Hist), RN No [facility] 01-30-2015 Are you blind, or do you have serious difficulty seeing, even when wearing glasses No 01/30/2015 8:32 AM Jany New) (Hist), RN No [facility] 01-30-2015 Do you have serious difficulty walking or climbing stairs No 01/30/2015 8:32 AM Jany NewRn) (Hist), RN No [facility] 01-30-2015 Do you have difficul ty dressing or bathing No 01/30/2015 8:32 AM Jany NewRn) (Hist), RN No [facility] 01-30-2015 Because of a physica l, mental, or emotional condition, do you have difficulty doing errands alone such as visiting a physician's office or shopping No 01/30/2015 8:32 AM Jany NewRn) (Hist), RN No [facility] Mental Status Date Assessment Result Facility 12-16-2022 Cognitive function Appropriate;Cooperativ e [facility] Work Phone: 12-15-2022 Cognitive function Level Of Cons ciousness Awake;Alert;Appropriate;Fol lows Commands [facility] Work Phone: 12-14-2022 Cognitive function Level Of Cons ciousness Awake;Alert;Appropriate;Fol lows Commands [facility] Work Phone: 05-07-2022 Cognitive function Level Of Cons ciousness Awake;Alert;Appropriate;Fol lows Commands [facility] Work Phone: 02-12-2022 Cognitive function Level Of Cons ciousness Awake;Alert;Appropriate;Fol lows Commands [facility] Work Phone: 01-30-2015 Because of a physica l, mental, or emotional condition, do you have serious difficulty concentrating, remembering, or making decisions No 01/30/2015 8:32 AM Jany NewRn) (Hist), RN No [facility] Clinical Notes 02-08-2007 to 01-20-2025 Telephone Encounter - Isabel Cottrell MA - 01/20/2025 10:37 AM EDTTelephone Encounter - Isabel Cottrell MA - 01/20/2025 10:37 AM Yesica Patino APRN.BIOSOLIDS MANAGEMENT TECHNICIAN - 12/31/2024 8:30 AM EDTPatient Instructions Note Date & Type Note Facility 01-20-2025 Telephone encounter Note See other TE [facility] 01-20-2025 Miscellaneous Notes See other TE documented in this encounter [facility] 12-31-2024 History of Presen t illness Narrative HISTORY AND PHYSICAL Lazaro Garzon : 1955 REFERRING PHYSICIAN: Jagjit Cheema [address] [facility] [id number] CHIEF COMPLAINT: Patient presents with: New Patient: Colonoscopy consult - rectal bleeding HPI: Lazaro is a 69 year old male referred for endoscopy. Lazaro notes rectal bleeding. Lazaro notes abdominal pain. -bilateral low belly cramping -relieved after bowel movement Lazaro notes diarrhea. -when hematochezia is happening it is with diarrhea Lazaro denies constipation. Lazaro denies a change in bowel habits. Lazaro denies melena. Lazaro notes bright red blood per rectum. -occurs after eating popcorn and peanuts Lazaro notes hemorrhoids. Lazaro denies family history of colon issues. Lazaro notes a distant history of heartburn. -symptoms well controlled on nexium Lazaro denies dysphagia. Lazaro notes a distant history of a history of ulcers/ peptic ulcer disease. >10 years ago Lazaro follows with [facility] for PAF s/p cardioversion (2022) and CAD. Last OV 12/11. Last stress test 12/11 negative for ischemia, EF: 65%. He denies CP, SOB, dizziness, palpitations, syncope, edema, recent hospitalizations Lazaro has sleep apnea c/w CPAP. Lazaro has undergone prior endoscopy. Last EGD & colonoscopy was 11/[address] Bennett at [place]. Sedation: MAC Impression: Medium-sized hiatal hernia, irregular GE junction, gastric fundic polyps, diverticulosis, and hemorrhoids. Pathology demonstrated: FINAL DIAGNOSIS A. Duodenal bulb, biopsy: - Gastric heterotopia. B. Stomach, antrum, biopsy: - No pathologic abnormalities. C. Gastric polyp, biopsy: - Fundic gland polyp. D. Gastroesophageal junction, biopsy: - Fragments of squamous and gastric type glandular mucosa showing no pathologic abnormalities. Current Outpatient Medications Medication Sig potassium chloride (K-TAB) 10 mEq tablet Take 2 tablets by mouth once daily. atomoxetine (STRATTERA) 100 mg capsule Take 1 capsule by mouth once daily. [START ON 01/01/2025] semaglutide, weight loss, (WEGOVY) 0.5 mg/0.5 mL pen injector Inject 0.5 mg subcutaneously one time a week for 28 days. Patient should start on January 01, 2025. finasteride (PROSCAR) 5 mg tablet Take 5 [...] mouth once daily. tamsulosin (FLOMAX) 0.4 mg Take 0.4 mg by mouth once daily. amLODIPine (NORVASC) 5 mg tablet Take 1 tablet by mouth once daily. testosterone (ANDROGEL PUMP) 20.25 mg/1.25 gram (1.62 %) transdermal gel APPLY 4 PUMPS TOPICALLY DAILY. oxyCODONE-acetaminophen 5-325 mg (PERCOCET) Take 1-2 tablets by mouth as needed. CPAP Requires replacement machine at same settings. Cholecalciferol, Vitamin D3, (VITAMIN D) 1,000 unit cap Take 1 capsule by mouth once daily. MULTIVITAMIN TAB Take 1 tablet by mouth once daily. peg 3350-Electrolytes (GOLYTELY) 236-22.74-6.74 -5.86 gram suspension Take 4,000 mL by mouth one time only for 1 dose. Refer to printed prep instructions from your provider. No current facility-administered medications for this visit. ALLERGIES: Sulfa (Sulfonamide Antibiotics) PAST MEDICAL HISTORY Diagnosis Date Abdominal pain, unspecified site Adrenal nodule (HCC) unchanged after >2 years Anxiety state, unspecified Asthma childhood Attention deficit disorder, unspecified type CAD (coronary artery disease) Chronic low back pain Class 2 obesity with body mass index (BMI) of 38.0 to 38.9 in adult, unspecified obesity type, unspecified whether serious comorbidity present 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 Diaphragmatic hernia without mention of obstruction or gangrene Diaphragmatic hernia without mention of obstruction or gangrene Diverticulosis of colon (without mention of hemorrhage) Esophageal reflux Essential hypertension, benign 03/20/2012 Fibromyalgia Hemorrhoids Hyperglycemia Hypogonadism male treated per urology Impotence of organic origin Lung nodule repeat ct in 01/02 Palpitations Personal history of colonic polyps 06/19/2004 polyps Pulmonary embolism (HCC) completed treatment per pulm Recurrent pneumonia 14 times Sleep apnea, unspecified type PAST SURGICAL HISTORY Procedure Laterality Date ADENOIDECTOMY PRIMARY <AGE 14 Adenoidectomy COLONOSCOPY N/A 07/20/2016 MAC COLONOSCOPY 01/24/2019 adenomatous colon polyps, repeat in 3 years COLONOSCOPY 12/01/2024 COLONOSCOPY FLX DX W/COLLJ SPEC WHEN PFRMD 2005 Colonoscopy COLONOSCOPY FLX DX W/COLLJ SPEC WHEN PFRMD 03/07/2011 wnl EGD N/A 07/20/2016 MAC EGD 01/24/2019 gastritis and gastric polyps EGD DIAGNOSTIC 12/01/2024 ESOPHAGOGASTRODUODENOSCOPY TRANSORAL DIAGNOSTIC 05/24/2011 EGD F TRIAL SPINAL CORD STIMULATOR HEMORRHOIDECTOMY XTRNL 2/> COLUMN/GROUP 04/30/2015 KNEE SURGERY HX Right 1988 LAPS SURG CHOLECYSTECTOMY W/CHOLANGIOGRAPHY 2004 [facility] - Dr. Bales NASAL ENDOS,DIAG,UNI/ BILATERAL 12/01/2024 OPEN REPAIR OF ROTATOR CUFF ACUTE Rotator cuff repair PERCUTANEOUS CORONARY INTERVENTION 2006 stent to LAD REPAIR EPIGASTRIC HERNIA,REDUC 07/19/2023 umbilical TONSILLECTOMY PRIMARY/SECONDARY <AGE 14 Tonsillectomy FAMILY HISTORY Problem Relation Age of Onset Hypertension Mother Heart Mother Stroke Mother Allergies Mother Breast Cancer Mother Heart Father of MD Allergies Father Allergies Sister Allergies Brother Prostate Cancer Brother Asthma Daughter Allergies Daughter Social History Tobacco Use Smoking status: Former Current packs/day: 0.00 Average packs/day: 2.0 packs/day for 5.0 years (10.0 ttl pk-yrs) Types: Cigarettes Start date: 02/08/1982 Quit date: 02/08/1987 Years since quittin.9 Smokeless tobacco: Former Types: Chew Quit date: 12/03/2017 Tobacco comments: patient smoked for a few months in 2006 Quit chew June 2022 Vaping Use Vaping status: Never Used Substance Use Topics Alcohol use: Yes Comment: occ Drug use: Not Currently Comment: marijuana in past not since 20 y/o PHYSICAL EXAMINATION: General: The patient is 69 year old, male well nourished, well hydrated in no acute distress. The patient is oriented to time, place, and person. VITALS: Blood pressure 141/83, pulse 79, temperature 36.4 C (97.6 F), height 193 cm (6' 3.98), weight (!) 147.4 kg (325 lb), SpO2 99%. Body mass index is 39.58 kg/m . HEENT: Normal cephalic, ataumatic, pupils are equally round, sclera are anicteric, mucous membranes are moist, oropharynx is clear. Neck has no masses or asymmetry . Respiratory: Clear to auscultation. Cardiac: Regular rate and rhythm. Abdominal exam: Soft, nontender, with no palpable masses. No hepatosplenomegaly. No palpable hernias. Extremities: no clubbing or cyanosis LABORATORY VALUES: As Noted RADIOLOGIC STUDIES: As Noted Assessment IMPRESSION: rectal bleeding PLAN: I have reviewed my findings with the surgeon. Will plan for lower endoscopy. We discussed the risks and benefits of the planned endoscopy in terms understandable to the patient. I have informed the patient that complications can occur including failure to complete the endoscopy and perforation. Lazaro had the opportunity to ask questions concerning the planned endoscopy. Lazaro freely consents to surgery. I plan to use Golytely bowel preparation Instructed to hold Wegovy for 7 days prior to endoscopy. I have explained to the patient the difference between IV conscious sedation and MAC anesthesia - and I have offered either, according to the patient's wishes. I have explained that with IV conscious sedation there is no anesthesia provider available and therefore there is a limitation of the amount of IV medications that can be given and that the patient may wake up in the middle of the procedure and/or experience pain/discomfort during the procedure. Further discussion was done and the patient was given the opportunity to ask questions and all questions were answered. MAC anesthesia. Lazaro was counseled that if there are changes in his/her medical condition, to let the office know if surgery should proceed. If there are changes in patient's medical condition from time of this encounter to the day of the procedure that preclude anesthesia, patient may have procedure cancelled for patient's safety. Diagnoses: (K62.5) Rectal bleeding Consultation requested by Dr. Cheema for an opinion regarding rectal bleeding. My final recommendations will be communicated back to the requesting physician by way of shared Medical record or letter to requesting physician via US mail. Portions of this documentation were copied and pasted from previous office visit notes in order to provide a cohesive continuity of the history. The note has been reviewed and edited and updated as necessary. Yesica Bacon APRN.BIOSOLIDS MANAGEMENT TECHNICIAN documented in this encounter [facility] 12-31-2024 Note HNO ID: [id number] Author: YESICA BACON APRN.CNP Service: ? Author Type: Nurse Practitioner Type: Progress Notes Filed: 12/31/2024 09:02 Note Text: HISTORY AND PHYSICAL Lazaro Garzon : 1955 REFERRING PHYSICIAN: Jagjit Cheema [address] [facility] [id number] CHIEF COMPLAINT: Patient presents with: New Patient: Colonoscopy consult - rectal bleeding HPI: Lazaro is a 69 year old male referred for endoscopy. Lazaro notes rectal bleeding. Lazaro notes abdominal pain. -bilateral low belly cramping -relieved after bowel movement Lazaro notes diarrhea. -when hematochezia is happening it is with diarrhea Lazaro denies constipation. Lazaro denies a change in bowel habits. Lazaro denies melena. Lazaro notes bright red blood per rectum. -occurs after eating popcorn and peanuts Lazaro notes hemorrhoids. Lazaro denies family history of colon issues. Lazaro notes a distant history of heartburn. -symptoms well controlled on nexium Lazaro denies dysphagia. Lazaro notes a distant history of a history of ulcers/ peptic ulcer disease. >10 years ago Lazaro follows with [facility] for PAF s/p cardioversion (2022) and CAD. Last OV 12/11. Last stress test 12/11 negative for ischemia, EF: 65%. He denies CP, SOB, dizziness, palpitations, syncope, edema, recent hospitalizations Lazaro has sleep apnea c/w CPAP. Lazaro has undergone prior endoscopy. Last EGD AND colonoscopy was 11/[address] Bennett at [place]. Sedation: MAC Impression: Medium-sized hiatal hernia, irregular GE junction, gastric fundic polyps, diverticulosis, and hemorrhoids. Pathology demonstrated: FINAL DIAGNOSIS A. Duodenal bulb, biopsy: - Gastric heterotopia. B. Stomach, antrum, biopsy: - No pathologic abnormalities. C. Gastric polyp, biopsy: - Fundic gland polyp. D. Gastroesophageal junction, biopsy: - Fragments of squamous and gastric type glandular mucosa showing no pathologic abnormalities. Current Outpatient Medications Medication Sig potassium chloride (K-TAB) 10 mEq tablet Take 2 tablets by mouth once daily. atomoxetine (STRATTERA) 100 mg capsule Take 1 capsule by mouth once daily. [START ON 01/01/2025] semaglutide, weight loss, (WEGOVY) 0.5 mg/0.5 mL pen injector Inject 0.5 mg subcutaneously one time a week for 28 days. Patient should start on January 01, 2025. finasteride (PROSCAR) 5 mg tablet Take 5 [...] mouth once daily. tamsulosin (FLOMAX) 0.4 mg Take 0.4 mg by mouth once daily. amLODIPine (NORVASC) 5 mg tablet Take 1 tablet by mouth once daily. testosterone (ANDROGEL PUMP) 20.25 mg/1.25 gram (1.62 %) transdermal gel APPLY 4 PUMPS TOPICALLY DAILY. oxyCODONE-acetaminophen 5-325 mg (PERCOCET) Take 1-2 tablets by mouth as needed. CPAP Requires replacement machine at same settings. Cholecalciferol, Vitamin D3, (VITAMIN D) 1,000 unit cap Take 1 capsule by mouth once daily. MULTIVITAMIN TAB Take 1 tablet by mouth once daily. peg 3350-Electrolytes (GOLYTELY) 236-22.74-6.74 -5.86 gram suspension Take 4,000 mL by mouth one time only for 1 dose. Refer to printed prep instructions from your provider. No current facility-administered medications for this visit. ALLERGIES: Sulfa (Sulfonamide Antibiotics) PAST MEDICAL HISTORY Diagnosis Date Abdominal pain, unspecified site Adrenal nodule (HCC) unchanged after >2 years Anxiety state, unspecified Asthma childhood Attention deficit disorder, unspecified type CAD (coronary artery disease) Chronic low back pain Class 2 obesity with body mass index (BMI) of 38.0 to 38.9 in adult, unspecified obesity type, unspecified whether serious comorbidity present 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 Diaphragmatic hernia without mention of obstruction or gangrene Diaphragmatic hernia without mention of obstruction or gangrene Diverticulosis of colon (without mention of hemorrhage) Esophageal reflux Essential hypertension, benign 03/20/2012 Fibromyalgia Hemorrhoids Hyperglycemia Hypogonadism male treated per urology Impotence of organic origin Lung nodule repeat ct in 01/02 Palpitations Personal history of colonic polyps 06/19/2004 polyps Pulmonary embolism (HCC) completed treatment per pulm Recurrent pneumonia 14 times Sleep apnea, unspecified type PAST SURGICAL HISTORY Procedure Laterality Date ADENOIDECTOMY PRIMARY Adenoidectomy COLONOSCOPY N/A 07/20/2016 MAC COLONOSCOPY 01/24/2019 adenomatous colon polyps, repeat in 3 years COLONOSCOPY 11/17 (more content not included)... [facility] 12-30-2024 Telephone encounter Note Prescription Refill Information The patient has been identified by name and date of : Yes Caregiver verified no other encounters exist for this prescription request: Yes Caregiver confirmed with patient/requestor that no other refills are due, in the near future, with this provider at this time: Yes The last office visit in the department: 12/24/24 Does the patient have a future office visit with this provider/department: Yes, 03/10/25 Requested Prescriptions Pending Prescriptions Disp Refills potassium chloride (K-TAB) 10 mEq tablet 180 tablet 1 Sig: Take 2 tablets by mouth once daily. Reynaldo Zarate LPN December 30, 2024 3:42 PM [facility] 07-14-2025 Miscellaneous Notes Prescription Refill Information The patient has been identified by name and date of : Yes Caregiver verified no other encounters exist for this prescription request: Yes Caregiver confirmed with patient/requestor that no other refills are due, in the near future, with this provider at this time: Yes The last office visit in the department: 12/24/24 Does the patient have a future office visit with this provider/department: Yes, 03/10/25 Requested Prescriptions Pending Prescriptions Disp Refills potassium chloride (K-TAB) 10 mEq tablet 180 tablet 1 Sig: Take 2 tablets by mouth once daily. Reynaldo Zarate LPN December 30, 2024 3:42 PM documented in this encounter [facility] 12-24-2024 Note HNO ID: [id number] Author: JAGJIT CHEEMA MD Service: ? Author Type: Physician Type: Progress Notes Filed: 12/24/2024 17:38 Note Text: Lazaro Garzon is a 69-year-old male with a history of ADHD, DEENA, and heart disease, presenting for follow-up on medication changes and evaluation of rectal bleeding. HPI Rectal Bleeding: - Multiple episodes of rectal bleeding, with two significant episodes prompting ED visits. - Bleeding often occurs after consuming peanuts or popcorn, but also noted during episodes of anxiety. - No straining during bowel movements; urgency noted prior to bleeding. - Associated with severe abdominal cramping during episodes; no current abdominal pain. - Recent colonoscopy on 12/01/[address] Bennett at [place] revealed diverticuli and poor bowel preparation; recommended repeat within two years by physician after the scope. - No epistaxis, hematuria, or excessive bruising. Chest Pain: - Recent episode of chest pain on 11/20/2024, attributed to self-administration of an unidentified medication. - Stress test performed by cardiology showed no significant abnormalities. - No current chest pain or dyspnea. ADHD: - Recently switched from Pristiq to Strattera 100 mg daily. - Reports good concentration and emotional stability on current dosage. - Completed a bottle of 100 mg Strattera when 40 mg was unavailable. Obstructive Sleep Apnea: - Using CPAP machine; believes it contributes to breathing difficulties. - Hopes to discontinue CPAP with weight loss. Weight Management: - Started Wegovy 0.25 mg weekly for weight loss two weeks ago; Lazaro has lost 9 lbs. - No adverse effects from medication. - Goal to lose 80 lbs to discontinue CPAP. - He would like us to take over writing it from cardiology. MEDICATIONS: Current Outpatient Medications Medication Sig [START ON 12/31/2024] WEGOVY 0.25 mg/0.5 mL pen injector Inject 0.5 mg subcutaneously one time a week for 28 days. Patient should start on December 31, 2024. atomoxetine (STRATTERA) 100 mg capsule Take 1 capsule by mouth once daily. [START ON 01/01/2025] semaglutide, weight loss, (WEGOVY) 0.5 mg/0.5 mL pen injector Inject 0.5 mg subcutaneously one time a week for 28 days. Patient should start on January 01, 2025. finasteride (PROSCAR) 5 mg tablet Take 5 [...] Right 1988 LAPS SURG CHOLECYSTECTOMY W/CHOLANGIOGRAPHY 2004 [facility] - D (more content not included)... [facility] 12-24-2024 History of Presen t illness Narrative Lazaro Garzon is a 69-year-old male with a history of ADHD, DEENA, and heart disease, presenting for follow-up on medication changes and evaluation of rectal bleeding. HPI Rectal Bleeding: - Multiple episodes of rectal bleeding, with two significant episodes prompting ED visits. - Bleeding often occurs after consuming peanuts or popcorn, but also noted during episodes of anxiety. - No straining during bowel movements; urgency noted prior to bleeding. - Associated with severe abdominal cramping during episodes; no current abdominal pain. - Recent colonoscopy on 12/01/[address] Bennett at [place] revealed diverticuli and poor bowel preparation; recommended repeat within two years by physician after the scope. - No epistaxis, hematuria, or excessive bruising. Chest Pain: - Recent episode of chest pain on 11/20/2024, attributed to self-administration of an unidentified medication. - Stress test performed by cardiology showed no significant abnormalities. - No current chest pain or dyspnea. ADHD: - Recently switched from Pristiq to Strattera 100 mg daily. - Reports good concentration and emotional stability on current dosage. - Completed a bottle of 100 mg Strattera when 40 mg was unavailable. Obstructive Sleep Apnea: - Using CPAP machine; believes it contributes to breathing difficulties. - Hopes to discontinue CPAP with weight loss. Weight Management: - Started Wegovy 0.25 mg weekly for weight loss two weeks ago; Lazaro has lost 9 lbs. - No adverse effects from medication. - Goal to lose 80 lbs to discontinue CPAP. - He would like us to take over writing it from cardiology. MEDICATIONS: Current Outpatient Medications Medication Sig [START ON 12/31/2024] WEGOVY 0.25 mg/0.5 mL pen injector Inject 0.5 mg subcutaneously one time a week for 28 days. Patient should start on December 31, 2024. atomoxetine (STRATTERA) 100 mg capsule Take 1 capsule by mouth once daily. [START ON 01/01/2025] semaglutide, weight loss, (WEGOVY) 0.5 mg/0.5 mL pen injector Inject 0.5 mg subcutaneously one time a week for 28 days. Patient should start on January 01, 2025. finasteride (PROSCAR) 5 mg tablet Take 5 [...] Right 1988 LAPS SURG CHOLECYSTECTOMY W/CHOLANGIOGRAPHY 2004 [facility] - Dr. 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 EPIGASTRIC HERNIA,REDUC 07/19/2023 umbilical TONSILLECTOMY PRIMARY/SECONDARY <AGE 12 Tonsillectomy FAMILY HISTORY Problem Relation Age of Onset Hypertension Mother Heart Mother Stroke Mother Allergies Mother Breast Cancer Mother Heart Father of MD Allergies Father Asthma Daughter Allergies Sister Allergies Brother Allergies Daughter Social History Tobacco Use Smoking status: Former Current packs/day: 0.00 Average packs/day: 2.0 packs/day for 5.0 years (10.0 ttl pk-yrs) Types: Cigarettes Start date: 02/08/1982 Quit date: 02/08/1987 Years since quittin.9 Smokeless [...] and social history today. REVIEW OF SYSTEMS Constitutional: (+) weight loss Ears/Nose/Mouth/Throat: (-) epistaxis Cardiovascular: (-) chest pain Respiratory: (-) shortness of breath Gastrointestinal: (+) rectal bleeding, (+) abdominal cramps, (-) nausea, (-) vomiting, (-) diarrhea, (-) straining with bowel movement Genitourinary: (-) hematuria Skin: (-) bruising HEALTH MAINTENANCE: Reviewed health maintenance issues today and recommended the following in detail. DTaP,Tdap,Td Vaccine(1 - Tdap) Never done Shingrix Vaccine(1 of 2) Never done Medicare Annual Wellness Visit Never done Depression Screening due on 12/28/2024 Anxiety Screening due on 12/28/2024 LAB REVIEWED: Labs: - CBC Tests: - (11/20/2024) Stress Test: Normal findings - (12/01/2022) Colonoscopy: Diverticuli observed, poor bowel preparation - (2016) Colonoscopy VITALS: BP 140/72 Pulse 86 Wt (!) 147.4 kg (325 lb) SpO2 97% BMI 38.54 kg/m Last 4 Encounter Wt Readings: Date: Wt: 12/24/2024 147.4 kg (325 lb) 10/21/2024 152 kg (335 lb) 09/23/2024 152 kg (335 lb) 09/11/2024 152 kg (335 lb) PHYSICAL EXAMINATION: GENERAL: NAD, alert and oriented. SKIN: Unremarkable, no rash or skin lesions. HEAD: Normocephalic. NECK: Supple, no lymphadenopathy, normal thyroid, no carotid bruits. LUNGS: Clear to auscultation bilaterally, no wheezes/rhonchi/rales. HEART: Regular rate and rhythm, no murmurs. No ectopy. EXTREMITIES: Normal, no deformities, no skin discoloration, no edema. NEURO: Awake, alert and oriented x3, cranial nerves II-XII grossly intact, normal gait, no involuntary motions. ASSESSMENT AND PLAN 1. Rectal bleeding (K62.5) - Multiple episodes of rectal bleeding, associated with severe cramping. - Recent colonoscopy on 12/01/[address] Bennett at [place] revealed poor bowel preparation and multiple diverticuli; recommended repeat colonoscopy within 2 years. - Referred for repeat colonoscopy to evaluate ongoing bleeding. - Recent CBCs reviewed; will monitor for any worsening of bleeding. 2. Hyperglycemia (R73.9) - No current issues discussed. 3. Sleep apnea, unspecified type (G47.30) - Currently managed with CPAP therapy. - Discussed potential improvement with weight loss. 4. 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 (I25.10) - Recent chest pain episode on 11/20/2024; stress test performed by cardiology was unremarkable. - No current chest pain or dyspnea. 5. Class 2 obesity with body mass index (BMI) of 38.0 to 38.9 in adult, unspecified obesity type, unspecified whether serious comorbidity present (E66.812) - Initiated on Wegovy 0.25 mg, administered weekly; patient has been on therapy for 2 weeks with a reported weight loss of 9 lbs. - No adverse effects reported. - Will increase dose to 0.5 mg after 15th of the month; provided 28-day supply. - Follow-up in 8 weeks to monitor progress and adjust dosage as needed. 6. Attention deficit disorder, unspecified type (F98.8) - Currently managed with Strattera 100 mg daily; patient reports good concentration and emotional stability. - Refilled Strattera 100 mg. (See patient after visit summary for additional instructions to patient) Jagjit Cheema MD Recording using ambient CoreTrace software for draft documentation of the visit was discussed with the patient/authorized technology sales representative; all questions welcomed and answered. Patient/authorized technology sales representative agreed to proceed documented in this encounter [facility] 12-24-2024 Telephone encounter Note [facility] Pharmacist calling regarding Wegovy script received today. Pharmacist states order is for 0.25 mg but script directions state to give 0.5 mg. Pharmacist asking if provider could send script for the 0.5 mg? Ni Hewitt RN [facility] 12-24-2024 Miscellaneous Notes [facility] Pharmacist calling regarding Wegovy script received today. Pharmacist states order is for 0.25 mg but script directions state to give 0.5 mg. Pharmacist asking if provider could send script for the 0.5 mg? Ni Hewitt RN documented in this encounter [facility] 12-24-2024 Instructions Jagjit Cheema MD - 12/24/2024 2:29 PM EDT - Continue taking Strattera (atomoxetine) 100 mg once daily as you have been doing. - Start the higher?strength semaglutide (Wegovy) injection at 0.5 mg: you have a 28-day supply to begin after the 15th of this month. - Watch for any stomach upset, nausea, vomiting or diarrhea while on semaglutide; if you develop these side effects, let us know. - Weigh yourself and send an update via Wapi or call toward the end of the month with your weight change and how you re feeling on the medication. - Schedule a repeat colonoscopy with the general surgery team (Dr. Bales or his partner Dr. Bennett at [place]) as soon as possible, since your last prep in November 2022 was poor and you ve had rectal bleeding. - Arrange for one more complete blood count to check for any changes from your bleeding episodes; contact the office to order this lab. - Plan to return to the clinic in about 8 weeks to review your progress on semaglutide, your Strattera therapy, and any further care steps. documented in this encounter [facility] 11-20-2024 Discharge summary Note Date/Time November 20, 2024 1:37pm [facility] Medical Records Department [address] [place] [address] Emergency Department Summary 11/20/24 MR#: [id number] Acct: [id number] Name: LAZARO GARZON Rep #:[id number] : 1955 69 From: Jose Alberto Contreras MD PCP: Dr. Jagjit Cheema MD Status:REG E R Location: ED HPI History of Present Illness Chief Complaint: Shortness of Breath Informant: patient Narrative Narrative: 69-year-old male presents with worsening dyspnea on exertion, gradual in onset over the last couple weeks. Denies any chest pain with any of this. However heis getting to the point where he does not have to do very much exertion before he needs to stop and rest, he sometimes feels near syncopal with this but he hasnot lost consciousness, last night was 1 of those episodes and so we decided to check his blood pressure and it was 70s/50s. He denies any leg edema or orthopnea. 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 He states at rest right now other than being a little tired, he is asymptomatic. States he was cardioverted out of atrial flutter years ago and has been off of anticoagulants,and also has a stent. He states as a result of the symptoms he saw his primary care doctor recently, he states they took a chest x-ray and was told it was normal/negative for pneumonia, so they put him on an antibiotic anyway, so he is currently on doxycycline and day 3 of prednisone. He thinks that it is helping the minor drycough that he has been having a little. [facility] Medical History History of cardioversion [...] disease) Essential hypertension Atherosclerotic heart disease of seminole coronary artery without angina pectoris Confusion Unstable angina HTN (hypertension) Abnormal myocardial perfusion study H/O percutaneous transluminal coronary angioplasty Abnormal stress test DEENA (obstructive sleep apnea) Pulmonary embolism Obesity Testosterone deficiency Home Medications ?Medication ?Instructions ?Recorded ?Last Taken ?Type albuterol sulfate 90 mcg/actuation 1 - 2 puff inhalati on Q6H PRN 07/08/19 02/08/20 History aerosol inhaler Asthma testosterone 4 pump transdermal DAILY low 11/23/21 10/28/24 History testosterone tamsulosin 0.4 mg capsule 0.4 mg PO DAILY prostate 05/1010/28/24 History aspirin 81 mg tablet,delayed 81 mg PO DAILY 07/05/23 U nknown History release amlodipine 5 mg tablet 10 mg (2 x 5 mg) PO DAILY ht n #90 04/08/24 10/28/24 Rx tabs atomoxetine 40 mg capsule 40 mg PO DAILY 10/28/2410/17 History esomeprazole magnesium 40 mg 40 mg PO BID 10/28/2406/12 History capsule,delayed release finasteride 5 mg tablet 5 mg PO DAILY 10/28/2410/28 History losartan 100 mg tablet 100 mg PO DAILY 10/28/2406/12 History multivitamin (Daily Multi-Vitamin 1 tab PO DAILY 10/2810/28/24 History tablet) oxycodone-acetaminophen 5 mg-325 1 tab PO DAILY PRN pa in 10/28/24 Unknown H istory mg tablet potassium chloride 10 mEq 20 meq PO DAILY 10/28/2406/12 History tablet,extended release Allergy/AdvReac Type Severity Reaction Status Date / Time Sulfa (Sulfonamide Allergy Unknown Verified 11/20/24 10:26 Antibiotics) Family History Mother CAD (coronary artery disease) Hypertension Hx of CABG Father Hypertension Myocardial infarction Grandfather Myocardial infarction paternal Grandmother Cancer pancreatic CA Grandfather CAD (coronary artery disease) Surgical History Spinal cord stimulator status (~05/2021) History of back surgery History of transurethral resection of prostate History of arthroscopy of right knee History of laparoscopic cholecystectomy Presence of coronary angioplasty implant and graft (~08/2012) Presence of stent in coronary artery (~08/2012) History of left heart catheterization (LHC) History of PTCA (~08/2012) History of tonsillectomy and adenoidectomy History of [...] ROS ROS ED Constitutional Constitutional ED: Reports sweats; Denies chills or fever(s) Eyes Eyes: Denies change in vision or diplopia ENT ENT ED: Denies rhinorrhea or sore throat Cardiovascular Cardiovascular: Denies chest pain, leg edema, orthopnea, palpitations, paroxysmal nocturnal dyspnea or racing heartbeat Respiratory/Chest Respiratory/Chest: Reports cough, dyspnea and dyspnea on exertion; Denies orthopnea, paroxysmal nocturnal dyspnea or sputum Gastrointestinal Gastrointestinal: Denies abdominal pain, diarrhea, nausea or vomiting Genitourinary Genitourinary ED: Denies dysuria or hematuria Musculoskeletal Musculoskeletal: Denies back pain or neck pain Integumentary Denies abscess or rash Neurologic Neurologic: Denies headache(s), paresthesias or weakness Psychiatric Psychiatric: Denies suicidal thoughts EXAM Physical Exam Const Vital Signs: 11/20/24 10:26 11/20/24 10:51 11/20/24 10:56 Temperature 98.7 F Temperature Source Temporal Pulse Rate 86 Respiratory Rate 20 H Respiratory Effort Normal Non-Labored Respiratory Depth Normal Respiratory Pattern Normal Blood Pressure 165/76 H Blood Pressure Mean 105 Pulse Ox 98 Oxygen Delivery Method Room Air Room Air Room Air 11/20/24 12:25 Temperature Temperature Source Pulse Rate 74 Respiratory Rate 19 H Respiratory Effort Respiratory Depth Respiratory Pattern Blood Pressure 149/72 H Blood Pressure Mean 97 Pulse Ox 96 Oxygen Delivery Method Room Air Positive well nourished and well developed General Appearance ED: well developed and NAD HEENT Reports moist mucous membranes normocephalic and atraumatic Eyes PERRL and EOMs intact bilaterally Neck full ROM and supple Resp normal respiratory effort Resp Narrative: Occasional end expiratory wheeze at bases. Cardio regular rate, regular rhythm and no murmurs Cardio Narrative: No JVD GI non-tender and non-distended Auscultation: normoactive bowel sounds Palpation: soft Back/Spine no CVA tenderness General Back: other FROM Extremity normal to inspection General Extremety ED: Yes edema; Negative for pulses abnormal or tenderness General Extremity: edema bilateral lower extremity Details: trace; Negative for pulses abnormal Neuro oriented x3, CN's II-XII intact bilaterally and no sensory deficits noted Sensorium / Orientation: awake and alert Motor Exam: strength 5/5 throughout Skin no rashes or lesions noted and no wounds MDM MDM MDM Narrative Medical decision making narrative: 2 view chest x-ray normal in my interpretation, radiology in agreement. His initial troponin is a little elevated at 25 this is nonspecific, may be related to his elevated creatinine which may be related to his large size and muscle burden. His EKG appears normal except for first-degree AV block, left axis, butnone of this is new or different than old, his rhythm has been normal here in the ER throughout his observation and on his EKG. He states he has an Apple Watch with the atrial fibrillation algorithm and he has had no alarms that he has been in A-fib and he wears a watch all the time. He states his watch did alarm him about A-fib episodes back when he was having it. He has been off anticoagulation since last February or so. Because of this I did a D-dimer to rule out PE it is negative ruling that out. He was able to walk to and from [facility] without any significant difficulty here in the ER. I discussed with Dr. Vo with cardiology, if his delta troponin is negative, he would support an outpatient stress test. Indeed it is lower than the initial, from 25 down to20. Given this, unlikely acute coronary syndrome. Outpatient stress test will be set up through cardiology, patient will be discharged home today he is comfortable with that plan. He is to call the office for specific timing. Lab Data Attestation: I reviewed the patient's lab results. Labs: Laboratory Results - last 24 hr 11/20/24 11/20/24 10:55 12:53 WBC 6.4 RBC 5.19 Hgb 15.4 Hct 44.4 MCV 85.5 MCH 29.7 MCHC 34.7 RDW Std Deviation 45.0 H RDW Coeff of Lito 14.4 Plt Count 160 MPV 11.2 Immature Gran % (Auto) 0.500 Neut % (Auto) 82.7 H Lymph % (Auto) 11.7 L [place] % (Auto) 4.4 Eos % (Auto) 0.2 Baso % (Auto) 0.5 Absolute Neuts (auto) 5.3 Absolute Lymphs (auto) 0.75 L Nucleated RBC % 0 D-Dimer Quant (PE/DVT) 0.30 Sodium 140 Potassium 3.8 Chloride 106 Carbon Dioxide 21.6 Anion Gap 12 BUN 23 H Creatinine 1.22 H Estim Creat Clear Calc 95.39 Est GFR (MDRD) Non-Af 65 BUN/Creatinine Ratio 18.9 Glucose 156 H Calcium 9.2 Troponin T High Sens 25 H Troponin T Hi Sens 2 Hr 20 NT pro BNP II 143 Radiography Diagnostic Testing: Clinical Impression(s) from Imaging Studies Chest X-Ray 11/20/24 11:33 IMPRESSION: No evidence of acute cardiopulmonary pathology. Reading Location: [id number] Rhythm Strip Rhythm Strip: Sinus Rhythm Rate: 80 Ectopy: None EKG Initial EKG: Attestation: I personally reviewed and interpreted this EKG as follows: Interpretation: Sinus Rhythm, No Acute Injury Pattern, LAFB and AV Block (First-degree) Prior EKG tracings: available for review Prior: Unchanged Discharge Plan Triage Chief Complaint: Shortness of Breath ED Provider: Jose Alberto Contreras Dx/Rx/DC Orders Clinical Impression: Dyspnea on exertion Instructions: ED Dyspnea Prescriptions: No Action tamsulosin 0.4 mg capsule 0.4 mg PO DAILY testosterone 20.25 mg/1.25 gram (1.62 %) gel in metered-dose pump 4 pump transdermal DAILY Patient Comments: APPLY 4 PUMPS DAILY aspirin 81 mg tablet,delayed release (DR/EC) 81 mg PO DAILY Patient Comments: PT IS SUPPOSE TO, BUT DOES NOT albuterol sulfate 1 INHALER inhaler 1 - 2 puff INHALATION Q6H PRN (Reason: Asthma) esomeprazole magnesium 40 mg capsule,delayed release(DR/EC) 40 mg PO BID Patient Comments: PT ONLY TAKES ONCE A DAY losartan 100 mg tablet 100 mg PO DAILY potassium chloride 10 mEq tablet extended release 20 meq PO DAILY finasteride 5 mg tablet 5 mg PO DAILY atomoxetine 40 mg capsule 40 mg PO DAILY multivitamin [Daily Multi-Vitamin] Tablet 1 tab PO DAILY oxycodone-acetaminophen 5-325 mg tablet 1 tab PO DAILY PRN (Reason: pain) amlodipine 5 mg tablet 10 mg PO DAILY Qty: 90 3RF Primary Care Provider: Jagjit Cheema Referrals: Karl Vo MD [Med Staff - Active Staff] - (Call KAYLEE for stress appointment time) Print Language: Rwandan Disposition Disposition: Home, Self Care What to do if you have Problems For any increased pain, shortness of breath, bleeding, nausea or vomiting, chestpain, or any unexpected problems, contact your Primary Care Provider. Call [facility] ([phone]) or report to the closest Emergency Room. Call 911 if necessary. 11/20/24 1337 <Electronically signed by Jose Alberto Contreras MD> Cosigner Signature (if applicable): CC: Dr. Jagjit Cheema MD ~ Signed [facility] Work Phone: [phone] Discharge summary [facility] Medical Records Department [address] [place] [address] Emergency Department Summary 11/20/24 MR#: [id number] Acct: [id number] Name: LAZARO GARZON Rep #:[id number] : 1955 69 From: Jose Alberto Contreras MD PCP: Dr. Jagjit Cheema MD Status:REG E R Location: ED HPI History of Present Illness Chief Complaint: Shortness of Breath Informant: patient Narrative Narrative: 69-year-old male presents with worsening dyspnea on exertion, gradual in onset over the last coupleweeks. Denies any chest pain with any of this. However heis getting to the point where he does not have to do very much exertion before he needs to stop and rest, he sometimes feels near syncopal with this but he hasnot lost consciousness, last night was 1 of those episodes and so we decided to chec k his blood pressure and it was 70s/50s. He denies any leg edema or orthopnea. 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 Hestates at rest right now other than being a little tired, he is asymptomatic. States he was cardioverted out of atrial flutter years ago and has been off of anticoagulants,and also has a stent. He states as a result of the symptoms he saw his primary care doctor recently, he states they took a chest x-ray and was told it was normal/negative for pneumonia, so they put him on an antibiotic anyway, so he is currently on doxycycline and day 3 of prednisone. He thinks that it is helping the minor drycough that he has been having a little. [facility] Medical History History of cardioversion [...] disease) Essential hypertension Atherosclerotic heart disease of seminole coronary artery without angina pectoris Confusion Unstable angina HTN (hypertension) Abnormal myocardial perfusion study H/O percutaneous transluminal coronary angioplasty Abnormal stress test DEENA (obstructive sleep apnea) Pulmonary embolism Obesity Testosterone deficiency Home Medications ?Medication ?Instructions ?Recorded ?Last Taken ?Type albuterol sulfate 90 mcg/actuation 1 - 2 puff inhalati on Q6H PRN 07/08/19 02/08/20 History aerosol inhaler Asthma testosterone 4 pump transdermal DAILY low 11/23/21 10/28/24 History testosterone tamsulosin 0.4 mg capsule 0.4 mg PO DAILY prostate 05/1010/28/24 History aspirin 81 mg tablet,delayed 81 mg PO DAILY 07/05/23 U nknown History release amlodipine 5 mg tablet 10 mg (2 x 5 mg) PO DAILY ht n #90 04/08/24 10/28/24 Rx tabs atomoxetine 40 mg capsule 40 mg PO DAILY 10/28/24/08/13 History esomeprazole magnesium 40 mg 40 mg PO BID 10/28/2406/12 History capsule,delayed release finasteride 5 mg tablet 5 mg PO DAILY 10/28/2410/28 History losartan 100 mg tablet 100 mg PO DAILY 10/28/2406/12 History multivitamin (Daily Multi-Vitamin 1 tab PO DAILY 10/2810/28/24 History tablet) oxycodone-acetaminophen 5 mg-325 1 tab PO DAILY PRN pa in 10/28/24 Unknown H istory mg tablet potassium chloride 10 mEq 20 meq PO DAILY 10/28/2406/12 History tablet,extended release Allergy/AdvReac Type Severity Reaction Status Date / Time Sulfa (Sulfonamide Allergy Unknown Verified 11/20/24 10:26 Antibiotics) Family History Mother CAD (coronary artery disease) Hypertension Hx of CABG Father Hypertension Myocardial infarction Grandfather Myocardial infarction paternal Grandmother Cancer pancreatic CA Grandfather CAD (coronary artery disease) Surgical History Spinal cord stimulator status (~05/2021) History of back surgery History of transurethral resection of prostate History of arthroscopy of right knee History of laparoscopic cholecystectomy Presence of coronary angioplasty implant and graft (~08/2012) Presence of stent in coronary artery (~08/2012) History of left heart catheterization (LHC) History of PTCA (~08/2012) History of tonsillectomy and adenoidectomy History of [...] ROS ROS ED Constitutional Constitutional ED: Reports sweats; Denies chills or fever(s) Eyes Eyes: Denies change in vision or diplopia ENT ENT ED: Denies rhinorrhea or sore throat Cardiovascular Cardiovascular: Denies chest pain, leg edema, orthopnea, palpitations, paroxysmal nocturnal dyspneaor racing heartbeat Respiratory/Chest Respiratory/Chest: Reports cough, dyspnea and dyspnea on exertion; Denies orthopnea, paroxysmal nocturnal dyspnea or sputum Gastrointestinal Gastrointestinal: Denies abdominal pain, diarrhea, nausea or vomiting Genitourinary Genitourinary ED: Denies dysuria or hematuria Musculoskeletal Musculoskeletal: Denies back pain or neck pain Integumentary Denies abscess or rash Neurologic Neurologic: Denies headache(s), paresthesias or weakness Psychiatric Psychiatric: Denies suicidal thoughts EXAM Physical Exam Const Vital Signs: 11/20/24 10:26 11/20/24 10:51 11/20/24 10:56 Temperature 98.7 F Temperature Source Temporal Pulse Rate 86 Respiratory Rate 20 H Respiratory Effort Normal Non-Labored Respiratory Depth Normal Respiratory Pattern Normal Blood Pressure 165/76 H Blood Pressure Mean 105 Pulse Ox 98 Oxygen Delivery Method Room Air Room Air Room Air 11/20/24 12:25 Temperature Temperature Source Pulse Rate 74 Respiratory Rate 19 H Respiratory Effort Respiratory Depth Respiratory Pattern Blood Pressure 149/72 H Blood Pressure Mean 97 Pulse Ox 96 Oxygen Delivery Method Room Air Positive well nourished and well developed General Appearance ED: well developed and NAD HEENT Reports moist mucous membranes normocephalic and atraumatic Eyes PERRL and EOMs intact bilaterally Neck full ROM and supple Resp normal respiratory effort Resp Narrative: Occasional end expiratory wheeze at bases. Cardio regular rate, regular rhythm and no murmurs Cardio Narrative: No JVD GI non-tender and non-distended Auscultation: normoactive bowel sounds Palpation: soft Back/Spine no CVA tenderness General Back: other FROM Extremity normal to inspection General Extremety ED: Yes edema; Negative for pulses abnormal or tenderness General Extremity: edema bilateral lower extremity Details: trace; Negative for pulses abnormal Neuro oriented x3, CN's II-XII intact bilaterally and no sensory deficits noted Sensorium / Orientation: awake and alert Motor Exam: strength 5/5 throughout Skin no rashes or lesions noted and no wounds MDM MDM MDM Narrative Medical decision making narrative: 2 view chest x-ray normal in my interpretation, radiology in agreement. His initial troponin is a little elevated at 25 this is nonspecific, may be related to his elevated creatinine which may be related to his large size and muscle burden. His EKG appears normal except for first-degree AV block, left axis, butnone of this is new or different than old, his rhythm has been normal here in the ER throughout his observation and on his EKG. He states he has an Apple Watch with the atrial fibrillation algorithm and he has had no alarms that he has been in A-fib and he wears a watch all the time. Hestates his watch did alarm him about A-fib episodes back when he was having it. He has been off anti coagulation since last February or so. Because of this I did a D-dimer to rule out PE it is negative ruling that out. He was able to walk to and from [facility] without any significant difficulty here in the ER. I discussed with Dr. Vo with cardiology, if his delta troponin is negative, he would support an outpatient stress test. Indeed it is lower than the initial, from 25 down to20. Giventhis, unlikely acute coronary syndrome. Outpatient stress test will be set up through cardiology, patient will be discharged home today he is comfortable with that plan. He is to call the office for specific timing. Lab Data Attestation: I reviewed the patient's lab results. Labs: Laboratory Results - last 24 hr 11/20/24 11/20/24 10:55 12:53 WBC 6.4 RBC 5.19 Hgb 15.4 Hct 44.4 MCV 85.5 MCH 29.7 MCHC 34.7 RDW Std Deviation 45.0 H RDW Coeff of Lito 14.4 Plt Count 160 MPV 11.2 Immature Gran % (Auto) 0.500 Neut % (Auto) 82.7 H Lymph % (Auto) 11.7 L [place] % (Auto) 4.4 Eos % (Auto) 0.2 Baso % (Auto) 0.5 Absolute Neuts (auto) 5.3 Absolute Lymphs (auto) 0.75 L Nucleated RBC % 0 D-Dimer Quant (PE/DVT) 0.30 Sodium 140 Potassium 3.8 Chloride 106 Carbon Dioxide 21.6 Anion Gap 12 BUN 23 H Creatinine 1.22 H Estim Creat Clear Calc 95.39 Est GFR (MDRD) Non-Af 65 BUN/Creatinine Ratio 18.9 Glucose 156 H Calcium 9.2 Troponin T High Sens 25 H Troponin T Hi Sens 2 Hr 20 NT pro BNP II 143 Radiography Diagnostic Testing: Clinical Impression(s) from Imaging Studies Chest X-Ray 11/20/24 11:33 IMPRESSION: No evidence of acute cardiopulmonary pathology. Reading Location: [facility] Rhythm Strip Rhythm Strip: Sinus Rhythm Rate: 80 Ectopy: None EKG Initial EKG: Attestation: I personally reviewed and interpreted this EKG as follows: Interpretation: Sinus Rhythm, No Acute Injury Pattern, LAFB and AV Block (First-degree) Prior EKG tracings: available for review Prior: Unchanged Discharge Plan Triage Chief Complaint: Shortness of Breath ED Provider: Jose Alberto Contreras Dx/Rx/DC Orders Clinical Impression: Dyspnea on exertion Instructions: ED Dyspnea Prescriptions: No Action tamsulosin 0.4 mg capsule 0.4 mg PO DAILY testosterone 20.25 mg/1.25 gram (1.62 %) gel in metered-dose pump 4 pump transdermal DAILY Patient Comments: APPLY 4 PUMPS DAILY aspirin 81 mg tablet,delayed release (DR/EC) 81 mg PO DAILY Patient Comments: PT IS SUPPOSE TO, BUT DOES NOT albuterol sulfate 1 INHALER inhaler 1 - 2 puff INHALATION Q6H PRN (Reason: Asthma) esomeprazole magnesium 40 mg capsule,delayed release(DR/EC) 40 mg PO BID Patient Comments: PT ONLY TAKES ONCE A DAY losartan 100 mg tablet 100 mg PO DAILY potassium chloride 10 mEq tablet extended release 20 meq PO DAILY finasteride 5 mg tablet 5 mg PO DAILY atomoxetine 40 mg capsule 40 mg PO DAILY multivitamin [Daily Multi-Vitamin] Tablet 1 tab PO DAILY oxycodone-acetaminophen 5-325 mg tablet 1 tab PO DAILY PRN (Reason: pain) amlodipine 5 mg tablet 10 mg PO DAILY Qty: 90 3RF Primary Care Provider: Jagjit Cheema Referrals: Karl Vo MD [Med Staff - Active Staff] - (Call KAYLEE for stress appointment time) Print Language: Rwandan Disposition Disposition: Home, Self Care What to do if you have Problems For any increased pain, shortness of breath, bleeding, nausea or vomiting, chestpain, or any unexpected problems, contact your Primary Care Provider. Call [facility] ([phone]) or report tothe closest Emergency Room. Call 911 if necessary. 11/20/24 1337 Cosigner Signature (if applicable): CC: Dr. Jagjit Cheema MD ~ Signed [facility]06-04-2025 Radiology Diagnostic study note [facility] Imaging Services [address] [place] [address] Chest PA and Lateral MR#: [id number] Acct: [id number] Name: LAZARO GARZON Rep #: [id number] : 1955 M 69 From: Yahir Noel MD PCP: Dr. Jagjit Cheema MD Status: REG E R Study:Chest PA and Lateral Date of Exam: 11/20/24 Exam# [id number] Ordering Dr: Evan Contreras MD PROCEDURE: CHEST PA AND LATERAL 11/20/2024 REASON FOR EXAM: SOB W/ EXERTION TECHNIQUE: Frontal and lateral views of the chest. COMPARISON: Two-view chest, 12/15/2022 FINDINGS: The lungs are clear. The heart borders and pulmonary vascular pattern are normal. There is calcificvascular disease of the thoracic aorta. There is an intrathecal stimulator with the tip at the midthoracic level. The upperabdominal bowel gas pattern is normal. RAD/Chest PA and Lateral IMPRESSION: No evidence of acute cardiopulmonary pathology. Reading Location: [facility] CC: Dr. Jose Alberto Contreras MD; Dr. Jagjit Cheema MD ~ [place]: Signed [facility] Work Phone: 1(129) 718-825006-02-2025 History of Present illness Narrative* Faustino Pineda, RT(R) - 11/18/2024 12:50 PM EDT Radiology Service Progress Note PATIENT [...] PATIENT PRESENTS WITH AN IMPLANTABLE OR ATTACHED ARTIFICIAL FLOWER MAKER: No RADIOLOGY DEPARTMENT: General X-ray: Exam(s) Completed: Chest X-Ray PERIPHERAL IV DATA: Not applicable SIGNED BY: RT Mariann(Filippo) November 18, 2024 12:57 PM documented in this encounterCincinnati [facility]06-02-2025 NoteHNO ID: [id number] Author: FAUSTINO PINEDA RT(R) Service: ? Author Type: Phototypesetter Operator Type: Progress Notes Filed: 11/18/2024 13:05 Note [...] PATIENT PRESENTS WITH AN IMPLANTABLE OR ATTACHED ARTIFICIAL FLOWER MAKER: No RADIOLOGY DEPARTMENT: General X-ray: Exam(s) Completed: Chest X-Ray PERIPHERAL IV DATA: Not applicable SIGNED BY: WILBER Waite) November 18, 2024 12:57 [facility]06-02-2025 NoteHNO ID: [id number] Author: SUSAN KERR APRN.BIOSOLIDS MANAGEMENT TECHNICIAN Service: ? Author Type: Nurse Practitioner Type: [...] Right 1988 LAPS SURG CHOLECYSTECTOMY W/CHOLANGIOGRAPHY 2004 [facility] - Dr. Bales OPEN REPAIR OF [...] Mother Breast Cancer Mother Heart Father of MD Allergies Father Asthma Daughter Allergies Sister Allergies Brother Allergies Daughter Social History Tobacco Use Smoking status: Former Current packs/day: 0.00 Average packs/day: 2.0 packs/day for 5.0 years (10.0 ttl pk-yrs) Types: Cigarettes Start date: 02/08/1982 Quit date: 02/08/1987 [facility] (more content not included)...[facility]06-02-2025 History of Present illness Narrative* Susan Kerr APRN.[facility] - 11/18/2024 12:29 PM EDT This is a 69 year old male [...] Right 1988 LAPS SURG CHOLECYSTECTOMY W/CHOLANGIOGRAPHY 2004 [facility] - Dr. Bales OPEN REPAIR OF [...] Mother Breast Cancer Mother Heart Father of MD Allergies Father Asthma Daughter Allergies Sister Allergies [...] results; patient will be contacted if additional treatmentis necessary. Denies chest pain associated w/ symptoms. [...] worsening/no improvement. Susan Kerr APRN.CNP Recording using TrustAlert software for draft documentation of the visit was discussed with the patient/authorized technology sales representative; all questions welcomed and answered. Patient/authorized technology sales representative agreed to proceed documented in this encounterCincinnati [facility]rin[facility]06-02-2025 Instructions* Patient Instructions* Susan Kerr APRN.CNP - 11/18/2024 11:55 AM EDT - Get the chest xray. - Begin doxycycline: take one dose twice daily for 10 days. - Begin prednisone: take one tablet once a day for 5 days. - Continue using your albuterol inhaler and Claritin as you have been. Let us know if no improvement/worsening. documented in this encounterCincinnati Shriners Hospital05-12-2025 Radiology Diagnostic study note [facility] Imaging Services [facility] [address] [place], [place] [id number] Abdomen/Pelvis W IV Cont ONLY MR#: [id number] Acct: [id number] Name: LAZARO GARZON Rep #: [id number] : 1955 M 69 From: Yannick Russ MD PCP: Dr. Jagjit Cheema MD Status: REG E R Study:Abdomen/Pelvis W IV Cont ONLY Date of E xam: 10/28/24 Exam# [id number] Ordering Dr: Duncan Mclaughlin DO PROCEDURE: ABDOMEN/PELVIS [...] lower chance of developing HCC. Reading Location: [id number] CC: Dr. Robby Mclaughlin DO; Dr. Jagjit Cheema MD ~ [place]: Signed [facility]05-12-2025 Telephone encounter Note* Telephone Encounter - Jagjit Cheema MD - 10/28/2024 8:57 AM EDT agree [facility]05-12-2025 Miscellaneous Notes* Telephone Encounter - Jagjit Cheema MD - 10/28/2024 8:57 AM EDT agree * Telephone Encounter - Asuncion Robertson LPN - 10/28/2024 8:31 AM EDT Patient returned call and said he has [...] get a friend to take him to [facility] ER. * Telephone Encounter - Ni Hewitt RN - 10/28/2024 8:14 AM EDT Attempted to call patient for further triage regarding MC message received today. No answer. VM left for pt to call PCP office back as soon as possible. Ni Hewitt RN documented in this encounterCincinnati [facility]rin[facility]05-12-2025 Telephone encounter Note * Telephone Encounter - Asuncion Robertson LPN - 10/28/2024 8:31 AM EDT Patient returned call and said he has [...] get a friend to take him to [facility] ER. [facility]05-12[facility] Telephone encounter Note* Telephone Encounter - Ni Hewitt RN - 10/28/2024 8:14 AM EDT Attempted to call patient for further triage regarding MC message received today. No answer. VM left for pt to call PCP office back as soon as possible. Ni Hewitt RN [facility]05-05-2025 NoteHNO ID: [id number] Author: JAGJIT CHEEMA MD Service: ? Author [...] Lymph 1.00 - 4.00 k/uL 0.91 (L) Goliad% % 9.0 Abs G[place]ad <0.87 k/uL 0.40 Eosin% % 1.4 Abs [...] in 3 yea (more content not included)... [facility]05-05-2025 History of Present illness Narrative* Jagjit Cheema MD - 10/21/2024 8:42 AM EDT Patient presents with: Follow Up [...] Lymph 1.00 - 4.00 k/uL 0.91 (L) [place]% % 9.0 Abs [place] <0.87 k/uL 0.40 Eosin% % 1.4 Abs [...] Right 1988 LAPS SURG CHOLECYSTECTOMY W/CHOLANGIOGRAPHY 2004 [facility] - Dr. 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 EPIGASTRIC HERNIA,REDUC 07/19/2023 umbilical TONSILLECTOMY PRIMARY/SECONDARY <AGE 12 Tonsillectomy FAMILY HISTORY Problem Relation Age of Onset Hypertension Mother Heart Mother Stroke Mother Allergies Mother Breast Cancer Mother Heart Father of MD Allergies Father Asthma Daughter Allergies Sister Allergies [...] low. Jagjit Cheema MD documented in this encounterCincinnati [facility]04-30-2025 Telephone encounter Note * Telephone Encounter - Reynaldo Zarate LPN - 10/16/2024 2:11 PM EDT Prescription Refill Information The patient has been [...] Zarate LPN October 16, 2024 2:11 PM [facility]04-30-[facility]25 Miscellaneous Notes* Telephone Encounter - Reynaldo Zarate LPN - 10/16/2024 2:11 PM EDT Prescription Refill Information The patient has been [...] 16, 2024 2:11 PM documented in this encounterCincinnati [facility]rin[facility] Hospital04-11-2025 Telephone encounter Note * Telephone Encounter - Jagjit Cheema MD - 09/27/2024 9:44 AM EDT Rx sent [facility]04-11-20[facility] Miscellaneous Notes* Telephone Encounter - Jagjit Cheema MD - 09/27/2024 9:44 AM EDT Rx sent * Telephone Encounter - Milka Sandra LPN - 09/27/2024 9:34 AM EDT Rec'd covermymeds PA for desvenlafaxine succinate ER 25mg. The info we have is not PA is not neededfor the medicine. This is a qty issue. Did review with the pharmacy too. Please sent new for 25mg daily for a week. They a new rx for the 50mg daily. Unless you specifically want 25mg one twice daily(will complete PA) Did pend both rx. Please review if correct. documented in this encounterCincinnati [facility]rin[facility]04-11-2025 Telephone encounter Note * Telephone Encounter - Milka Sandra LPN - 09/27/2024 9:34 AM EDT Rec'd covermymeds PA for desvenlafaxine succinate ER 25mg. The info we have is not PA is not neededfor the medicine. This is a qty issue. Did review with the pharmacy too. Please sent new for 25mg daily for a week. They a new rx for the 50mg daily. Unless you specifically want 25mg one twice daily(will complete PA) Did pend both rx. Please review if correct. [facility]04-07-[facility]25 NoteHNO ID: [id number] Author: JAGJIT CHEEMA MD Service: ? Author [...] Right 1988 LAPS SURG CHOLECYSTECTOMY W/CHOLANGIOGRAPHY 2004 [facility] - Dr. 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 EPIGASTRIC HERNIA,REDUC 07/19/2023 umbilical TONSILLECTOMY PRIMARY/SECONDARY Tonsillectomy FAMILY HISTORY Problem Relation Age of Onset Hypertension Mother Heart Mother Stroke Mother Allergies Mother Breast Cancer Mother Heart Father of MD Allergies Father Asthma Daughter Allergies Sister Allergies [...] history today. REVIEW OF (more content not included)...[facility]04-07-2025 History of Present illness Narrative* Jagjit Cheema MD - 09/23/2024 9:48 AM EDT Patient presents with: Follow Up [...] Right 1988 LAPS SURG CHOLECYSTECTOMY W/CHOLANGIOGRAPHY 2004 [facility] - Dr. 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 EPIGASTRIC HERNIA,REDUC 07/19/2023 umbilical TONSILLECTOMY PRIMARY/SECONDARY <AGE 12 Tonsillectomy FAMILY HISTORY Problem Relation Age of Onset Hypertension Mother Heart Mother Stroke Mother Allergies Mother Breast Cancer Mother Heart Father of MD Allergies Father Asthma Daughter Allergies Sister Allergies [...] one month or prn documented in this encounterCincinnati [facility]rin[facility] Hospital04-03-2025 Telephone encounter Note * Telephone Encounter - Kira Hassan RN - 09/19/2024 10:27 AM EDT Pt called and is notified of providers message. Pt voices understanding and would like to have an appointment and discuss with Dr Cheema. Pt scheduled 09/23/[address] Cheema. Kira Hassan RN [facility]04-03-2025 Miscellaneous Notes* Telephone Encounter - Kira Hassan RN - 09/19/2024 10:27 AM EDT Pt called and is notified of providers message. Pt voices understanding and would like to have an appointment and discuss with Dr Cheema. Pt scheduled 09/23/[address] Cheema. Kira Hassan RN * Telephone Encounter - Jagjit Cheema MD - 09/19/2024 9:02 AM EDT Images from the original note were not [...] If you wanted we could taper and stopthe straterrra and switch you to the wellbutrin. Are you willing? Do you feel like we need to have you talk with someone?\Dr Cheema Written by Jagjit Cheema MD on 09/18/2024 12:29 PM EDT documented in this encounterCincinnati [facility]rin[facility]04-03-2025 Telephone encounter Note * Telephone Encounter - Jagjit Cheema MD - 09/19/2024 9:02 AM EDT Images from the original note were not [...] If you wanted we could taper and stopthe straterrra and switch you to the wellbutrin. Are you willing? Do you feel like we need to have you talk with someone?\Dr Cheema Written by Jagjit Cheema MD on 09/18/2024 12:29 PM EDT [facility]03-26-2025 NoteHNO ID: [id number] Author: JAGJIT CHEEMA MD Service: ? Author [...] checked by Dr Ramos, urology. Still seeing [facility]. MEDICATIONS: Current Outpatient Medications Medication [...] Right 1987 LAPS SURG CHOLECYSTECTOMY W/CHOLANGIOGRAPHY 2004 [facility] - Dr. 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 EPIGASTRIC HERNIA,REDUC 07/19/2023 umbilical TONSILLECTOMY PRIMARY/SECONDARY Tonsillectomy FAMILY HISTORY (more content not included)...[facility] 09-11-2024 History of Present illness Narrative* Jagjit Cheema MD - 09/11/2024 8:25 AM EDT Patient presents with: 6 Month [...] occasional cough. Declines work up. Discussed [facility] if worsens. Just had testosterone checked by Dr Ramos, urology. Still seeing [facility]. MEDICATIONS: Current Outpatient Medications Medication [...] Right 1988 LAPS SURG CHOLECYSTECTOMY W/CHOLANGIOGRAPHY 2004 [facility] - Dr. 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 EPIGASTRIC HERNIA,REDUC 07/19/2023 umbilical TONSILLECTOMY PRIMARY/SECONDARY <AGE 12 Tonsillectomy FAMILY HISTORY Problem Relation Age of Onset Hypertension Mother Heart Mother Stroke Mother Allergies Mother Breast Cancer Mother Heart Father of MD Allergies Father Asthma Daughter Allergies Sister Allergies [...] refill. ASSESSMENT/PLAN: 1. 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 Follow with [facility]. 2. Hyperlipidemia, unspecified hyperlipidemia type [...] - COMPREHENSIVE METABOLIC PANEL - SEDIMENTATION RATE, WESTERGREN Jagjit Cheema MD Bp check in one month and rto in six months. documented in this encounterCincinnati [facility]02-28-2025 Evaluation note* Diagnosis Onset Date Resolution Status Admit Date Atherosclerotic heart diseas e of seminole coronary artery without angina pectoris chronic August 16 10:25am Atrial flutter chronic July 212024 10:25am Essential hypertension chronic 2024 10:25am Pure hypercholesterolemia chronic August 16, 2024 10:25am [facility] Work Phone: 1(197) 997-911102-28-2025 Evaluation note* Diagnosis Onset Date Resolution Status Admit Date Atherosclerotic heart diseas e of seminole coronary artery without angina pectoris chronic August 16 10:25am Atrial flutter chronic July 212024 10:25am Essential hypertension chronic 2024 10:25am Pure hypercholesterolemia chronic August 16, 2024 10:25am Atherosclerotic heart diseas e of seminole coronary artery without angina pectoris chronic November 28, 2024 9:57am Atrial flutter chronic November 28, 2024 9:57am Essential hypertension chronic Ju 2024 9:57am Obesity chronic November 28 9:57am DEENA (obstructive sleep apnea) chroni c November 28, 2024 9:57am Pure hypercholesterolemia chronic November 28, 2024 9:57am [facility] [employer] Work Phone: 1(519) 964-315702-28-2025 Telephone encounter Note* Telephone Encounter - Giselle Green OCCA - [...] LUISA Martin August 16, 2024 10:16 AM [facility]02-28-[facility] Miscellaneous Notes* Telephone Encounter - Giselle [...] 16, 2024 10:16 AM documented in this encounterCincinnati [facility]rin[facility] Hospital01-24-2025 Miscellaneous Notes* Telephone Encounter - Sandy Velez LPN - 07/12/2024 11:35 AM EST Ratna with [facility] called for the last couple office visits to be faxed to them. Identified pt with name and date of . . Ratna looking for mention of c-pap. I did not see anything,. Ratna will look over. Done. Sandy Velez LPN documented in this encounterCincinnati [facility]rin[facility]01-24-2025 Telephone encounter Note * Telephone Encounter - Sandy Velez LPN - 07/12/2024 11:35 AM EST Ratna with [employer] called for the last couple office visits to be faxed to them. Identified pt with name and date of . . Ratna looking for mention of c-pap. I did not see anything,. Ratna will look over. Done. Sandy Velez LPN [facility]01-20-2025 History of Present illness Narrative* Faustino [...] PATIENT PRESENTS WITH AN IMPLANTABLE OR ATTACHED ARTIFICIAL FLOWER MAKER: No RADIOLOGY DEPARTMENT: General X-ray: Exam(s) Completed: Chest X-Ray PERIPHERAL IV DATA: Not applicable SIGNED BY: RT Mariann(R) July 08, 2024 10:04 AM documented in this encounterCincinnati [facility]rin[facility] Hospital01-20-2025 NoteHNO ID: [id number] Author: FAUSTINO PINEDA RT(Filippo) Service: ? Author Type: Phototypesetter Operator Type: Progress Notes Filed: 07/08/2024 10:11 Note [...] PATIENT PRESENTS WITH AN IMPLANTABLE OR ATTACHED ARTIFICIAL FLOWER MAKER: No RADIOLOGY DEPARTMENT: General X-ray: Exam(s) Completed: Chest X-Ray PERIPHERAL IV DATA: Not applicable SIGNED BY: RT Mariann(R) July 08, 2024 10:04 [facility]01-20-2025 NoteHNO ID: [id number] Author: JAGJIT CHEEMA MD Service: ? Author [...] Abs Lymph 1.00 - 4.00 k/uL 1.20 [place]% % 8.1 Abs [place] <0.87 k/uL 0.60 Eosin% % 0.9 Abs [...] Right 1987 LAPS SURG CHOLECYSTECTOMY W/CHOLANGIOGRAPHY 2004 [facility] - Dr. 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 EPIGASTRIC HERNIA,REDUC 07/19/2023 umbilical TONSILLECTOMY PRIMARY/SECONDARY Tonsillectomy FAMILY HISTORY Problem Relation Age of Onset Hypertension Mother Heart Mother Stroke Mother Allergies Mother Breast Cancer Mother Heart Father of MD Allergies Father Asthma Daughter Allergies Sister Allergies [...] and recommended the followin (more content not included)...[facility]01-20-2025 History of Present illness Narrative* Jagjit Cheema [...] Abs Lymph 1.00 - 4.00 k/uL 1.20 [place]% % 8.1 Abs [place] <0.87 k/uL 0.60 Eosin% % 0.9 Abs [...] Right 1988 LAPS SURG CHOLECYSTECTOMY W/CHOLANGIOGRAPHY 2004 [facility] Gina Bales OPEN REPAIR OF ROTATOR CUFF ACUTE Rotator cuff repair PERCUTANEOUS CORONARY INTERVENTION 2007 stent to LAD REPAIR EPIGASTRIC HERNIA,REDUC 07/19/2023 umbilical TONSILLECTOMY PRIMARY/SECONDARY <AGE 12 Tonsillectomy FAMILY HISTORY Problem Relation Age of Onset Hypertension Mother Heart Mother Stroke Mother Allergies Mother Breast Cancer Mother Heart Father of MD Allergies Father Asthma Daughter Allergies Sister Allergies [...] above. Jagjit Cheema MD documented in this encounterCincinnati [facility]rin[facility]01-13-2025 Telephone encounter Note * Telephone Encounter [...] Cope LPN July 01, 2024 12:28 PM [facility]01-13-2025 Miscellaneous Notes* Telephone Encounter - Fouzia [...] 01, 2024 12:28 PM documented in this encounterCincinnati [facility]riners Hospital01-07-2025 Telephone encounter Note * Telephone Encounter - Sincere Pickard RN - 06/25/2024 2:47 PM EST Phoned pt and given provider's message below with verbalized understanding. Pt agreeable. [facility]01-07-[facility] Miscellaneous Notes* Telephone Encounter - Sincere [...] labs in two weeks. documented in this encounterCincinnati [facility]rin[facility]01-07-2025 Telephone encounter Note * Telephone Encounter - Jagjit Cheema MD - 06/25/2024 12:37 PM EST If not taking a water pill should not necessarily require constant potassium. Can come from things like diarrhea or vomiting as well. Lets recheck and see what the numbers show [facility]01-07-[facility] Telephone encounter Note* Telephone Encounter - Jerilyn Henry MA - 06/25/2024 9:52 AM EST Patient informed. He has been taking his potassium faithfully. Has not missed doses. Knows that his numbers have beentrending low. He is wondering if he should increase the potassium? Advised him to repeat labs in two weeks. He verbalized understanding. Jerilyn Henry MA [facility]01-07-2025 Telephone encounter Note* Telephone Encounter - Jagjit Cheema MD - 06/25/2024 8:59 AM EST His labs are overall ok other than potassium is slightly low. Make sure taking his potassium. His sugar is up although that could be residual from his prednisone. Let me know about the potassium . Either way I would recheck labs in two weeks. [facility]01-06-2025 NoteHNO ID: [id number] Author: JAGJIT CHEEMA MD Service: ? Author [...] Right 1988 LAPS SURG CHOLECYSTECTOMY W/CHOLANGIOGRAPHY 2004 [facility] - Dr. 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 EPIGASTRIC HERNIA,REDUC 07/19/2023 umbilical TONSILLECTOMY PRIMARY/SECONDARY Tonsillectomy FAMILY HISTORY Problem Relation Age of Onset Hypertension Mother Heart Mother Stroke Mother Allergies Mother Breast Cancer Mother Heart Father of MD Allergies Father Asthma Daughter Allergies Sister Allergies [...] social history today. REVI (more content not included)...[facility]01-06-2025 History of Present illness Narrative* Jagjit Cheema [...] Right 1988 LAPS SURG CHOLECYSTECTOMY W/CHOLANGIOGRAPHY 2004 [facility] - Dr. 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 EPIGASTRIC HERNIA,REDUC 07/19/2023 umbilical TONSILLECTOMY PRIMARY/SECONDARY <AGE 12 Tonsillectomy FAMILY HISTORY Problem Relation Age of Onset Hypertension Mother Heart Mother Stroke Mother Allergies Mother Breast Cancer Mother Heart Father of MD Allergies Father Asthma Daughter Allergies Sister Allergies [...] two weeks or prn documented in this encounterCincinnati [facility]12-30-2024 Telephone encounter Note * Telephone Encounter - Brandie Lange LPN - 06/17/2024 4:01 PM EST Patient notified. [facility]12-30-2024 Miscellaneous Notes* Telephone Encounter - Brandie [...] if worsen at all. documented in this encounterCincinnati [facility]riners Hospital12-30-2024 Telephone encounter Note * Telephone Encounter - Jagjit Cheema MD - 06/17/2024 3:43 PM EST ?? Shows small pneumonia on left. Doxycycline should cover. Follow up with one of us next week. Use albuterol and prednisone Can add amoxil to be on the safe side to his doxy. Take both. Call if worsen at all. [facility]12[facility] History of Present illness Narrative* Faustino [...] PATIENT PRESENTS WITH AN IMPLANTABLE OR ATTACHED ARTIFICIAL FLOWER MAKER: No RADIOLOGY DEPARTMENT: General X-ray: Exam(s) Completed: Chest X-Ray PERIPHERAL IV DATA: Not applicable SIGNED BY: RT Mariann(Filippo) June 17, 2024 3:08 PM documented in this encounterCincinnati Shriners Hospital12-30-2024 NoteHNO ID: [id number] Author: FAUSTINO PINEDA RT(R) Service: ? Author Type: Phototypesetter Operator Type: Progress Notes Filed: 06/17/2024 15:14 Note [...] PATIENT PRESENTS WITH AN IMPLANTABLE OR ATTACHED ARTIFICIAL FLOWER MAKER: No RADIOLOGY DEPARTMENT: General X-ray: Exam(s) Completed: Chest X-Ray PERIPHERAL IV DATA: Not applicable SIGNED BY: RT Mariann(R) June 17, 2024 3:08 [facility]12-30-2024 NoteHNO ID: [id number] Author: JAGJIT CHEEMA MD Service: ? Author [...] Right 1988 LAPS SURG CHOLECYSTECTOMY W/CHOLANGIOGRAPHY 2004 [facility] - Dr. 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 EPIGASTRIC HERNIA,REDUC 07/19/2023 umbilical TONSILLECTOMY PRIMARY/SECONDARY Tonsillectomy FAMILY HISTORY Problem Relation Age of Onset Hypertension Mother Heart Mother Stroke Mother Allergies Mother Breast Cancer Mother Heart Father of MD Allergies Father Asthma Daughter Allergies Sister Allergies Brother Allergies Daughter Social History Tobacco Use Smoking status: Former Current packs/day: 0.00 Average packs/day: 2.0 packs/day for 5.0 years (10.0 ttl pk-yrs) Types: Cigarettes Start date: 02/08/1982 Quit date: 02/08/1987 Years since quittin.3 Smokeless tobacco: Former Types: Chew Quit date: 12/03/2017 Tobacco comments: patient smoked for (more content not included)...[facility] 06-17-2024 History of Present illness Narrative* Jagjit [...] Right 1988 LAPS SURG CHOLECYSTECTOMY W/CHOLANGIOGRAPHY 2004 [facility] - Dr. 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 EPIGASTRIC HERNIA,REDUC 07/19/2023 umbilical TONSILLECTOMY PRIMARY/SECONDARY <AGE 12 Tonsillectomy FAMILY HISTORY Problem Relation Age of Onset Hypertension Mother Heart Mother Stroke Mother Allergies Mother Breast Cancer Mother Heart Father of MD Allergies Father Asthma Daughter Allergies Sister Allergies [...] plan. Jagjit Cheema MD documented in this encounterC[facility] Telephone encounter Note * Telephone Encounter - Brandie Lange LPN - 06/17/2024 11:51 AM EST Scheduled. [facility]12-30-2024 Miscellaneous Notes* Telephone Encounter - Brandie [...] 17, 2024 10:42 AM documented in this encounterCincinnati [facility]12-30-2024 Telephone encounter Note * Telephone Encounter - Jagjit Cheema MD - 06/17/2024 11:27 AM EST Needs to see one of us if that bad [facility]12-30-2024 Telephone encounter Note* Telephone Encounter - Brandie Lange LPN - 06/17/2024 11:04 AM EST He was seen in 06/13 and treated with Doxy. [facility]12-30-[facility]24 Telephone encounter Note* Telephone Encounter - Radha Lawson - 06/17/2024 10:41 AM EST Patient calling in to request an order for an xray of his chest. He feels his cold going into his chest and has concerns of pneumonia. Please review and advise patient, okay to leave detailed message. Radha Lawson June 17, 2024 10:42 AM [facility]12-26-2024 NoteHNO ID: [id number] Author: CAROLANN LUCAS APRN.BIOSOLIDS MANAGEMENT TECHNICIAN Service: ? Author Type: Nurse Practitioner Type: Progress Notes Filed: 06/13/2024 16:18 Note Text: Subjective The history is provided by the patient. No foreign language stenographer was used. JOHNATHON Garzon is a 68 year old male [...] have confirmed and edited as necessary, the [facility] Review of Systems Constitutional: Negative for [...] detail warranting prompt ER evaluation. Carolann Lucas APRN.[facility]12-26-2024 History of Present illness Narrative* Carolann Lucas APRN.BIOSOLIDS MANAGEMENT TECHNICIAN - 06/13/2024 4:02 PM EST Subjective The history is provided by the patient. No foreign language stenographer was used. JOHNATHON Garzon is a 68 year old male [...] have confirmed and edited as necessary, the [facility] Review of Systems Constitutional: Negative for [...] indetail warranting prompt ER evaluation. Carolann Lucas APRN.BIOSOLIDS MANAGEMENT TECHNICIAN documented in this encounterCincinnati [facility]11-08-2024 Telephone encounter Note * Telephone Encounter - Sincere Pickard RN - 04/26/2024 12:39 PM EST Spoke with Amanda at [facility] Main lab, who states they will be able to add the hgba1c with the blood collected yesterday. [facility]11-08-2024 Miscellaneous Notes* Telephone Encounter - Sincere Pickard RN - 04/26/2024 12:39 PM EST Spoke with Amanda at [facility] Main lab, who states they will be able to add the hgba1c with the blood collected yesterday. * Telephone Encounter - Lisa Javed APRN.CNP - 04/26/2024 10:21 AM EST Please see if lab can add on A1c. His blood sugar was elevated- if not he will need to come back in. Lisa Javed APRN.ROSITA documented in this encounterCincinnati Shrin[facility]11-08-2024 Telephone encounter Note * Telephone Encounter - Lisa Javed APRN.CNP - 04/26/2024 10:21 AM EST Please see if lab can add on A1c. His blood sugar was elevated- if not he will need to come back in. Lisa Javed APRN.CNP [facility]11-07-[facility]24 History of Present illness Narrative* Terell [...] PATIENT PRESENTS WITH AN IMPLANTABLE OR ATTACHED ARTIFICIAL FLOWER MAKER: No RADIOLOGY DEPARTMENT: General X-ray: Exam(s) Completed: Chest X-Ray PERIPHERAL IV DATA: Not applicable SIGNED BY: RT Buster(Filippo) April 25, 2024 2:05 PM documented in this encounterCincinnati Shriners [facility]11-07-2024 NoteHNO ID: [id number] Author: TERELL CUETO RT(R) Service: Radiology Author [...] PATIENT PRESENTS WITH AN IMPLANTABLE OR ATTACHED ARTIFICIAL FLOWER MAKER: No RADIOLOGY DEPARTMENT: General X-ray: Exam(s) Completed: Chest X-Ray PERIPHERAL IV DATA: Not applicable SIGNED BY: RT Buster(Filippo) April 25, 2024 2:05 [facility]11-07-2024 NoteHNO ID: [id number] Author: LISA JAVED APRN.BIOSOLIDS MANAGEMENT TECHNICIAN Service: ? Author Type: Nurse Practitioner Type: Progress Notes Filed: 04/25/2024 14:07 Note Text: 04/25/2024 Patient presents with: Dizziness: X 1 week SUBJECTIVE: This is a 68 year old that is here today for Above Complaints. For the last week has had dizziness. Described as wearing bifocals and trying to walk down the stairs. Catarina like he was spinning around this morning. [...] Normal gait SKIN Sk (more content not included)...[facility]11-07-2024 History of Present illness Narrative* Lisa Javed APRN.ROSITA - 04/25/2024 1:21 PM EST 04/25/2024 Patient presents with: Dizziness: X 1 week SUBJECTIVE: This is a 68 year old that is here today for Above Complaints. For the last week has had dizziness. Described as wearing bifocals and trying to walk down the stairs. Catarina like he was spinning around this morning. [...] suspicious rashes or lesions to exposed skin [place]: Horizontal, torsional and up beating nystagmus elicited [...] 11/28/2024 Influenza Vaccine(1) due on 12/16/2024 Covid-19 Vaccine( - season) due on 03/08/2025 LDL Cholesterol [...] ER with red flag symptoms Lisa Javed APRN.BIOSOLIDS MANAGEMENT TECHNICIAN Prescription instructions reviewed with patient as applicable. [...] Level: 4 - Moderate documented in this encounterCincinnati Shrin[facility]11-07-2024 Telephone encounter Note * Telephone Encounter [...] has NOT been evaluated by doctor (or TECHNICAL APPLICATIONS SPECIALIST/PA) for this (Exception: Dizziness caused by heat [...] in sweat; fatigue Protocols used: Dizziness - Jcewnajptkodiqm-XRMQB-BE [facility]11-07-2024 Miscellaneous Notes* Telephone Encounter - Allison [...] has NOT been evaluated by doctor (or TECHNICAL APPLICATIONS SPECIALIST/PA) for this (Exception: Dizziness caused by heat [...] in sweat; fatigue Protocols used: Dizziness - Gawtrilkftzqwci-HQXHG-TM documented in this encounterCincinnati Shrin[facility] Hospital10-23-2024 History of Present illness Narrative* Rojas [...] Right 1988 LAPS SURG CHOLECYSTECTOMY W/CHOLANGIOGRAPHY 2004 [facility] - Dr. 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 EPIGASTRIC HERNIA,REDUC 07/19/2023 umbilical TONSILLECTOMY PRIMARY/SECONDARY <AGE 12 Tonsillectomy Family History FAMILY HISTORY Problem Relation Age of Onset Hypertension Mother Heart Mother Stroke Mother Allergies Mother Breast Cancer Mother Heart Father of MD Allergies Father Asthma Daughter Allergies Sister Allergies [...] 11/28/2024 Influenza Vaccine(1) due on 12/16/2024 Covid-19 Vaccine( - season) due on 03/08/2025 LDL Cholesterol [...] TABLET Rojas Dominguez MD documented in this encounterCincinnati [facility]rin[facility]10-23-2024 NoteHNO ID: [id number] Author: ROJAS DOMINGUEZ MD Service: ? Author [...] Right 1988 LAPS SURG CHOLECYSTECTOMY W/CHOLANGIOGRAPHY 2004 [facility] - Dr. 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 EPIGASTRIC HERNIA,REDUC 07/19/2023 umbilical TONSILLECTOMY PRIMARY/SECONDARY Tonsillectomy Family History FAMILY HISTORY Problem Relation Age of Onset Hypertension Mother Heart Mother Stroke Mother Allergies Mother Breast Cancer Mother Heart Father of MD Allergies Father Asthma Daughter Allergies Sister Allergies [...] y/o Review of Symp (more content not included)...[facility] 03-13-2024 NoteHNO ID: [id number] Author: JAGJIT CHEEMA MD Service: ? Author [...] Lymph 1.00 - 4.00 k/uL 0.82 (L) [place]% % 7.5 Abs [place] <0.87 k/uL 0.31 Eosin% % 1.4 Abs [...] 07/20/2016 MAC COLONOSCOPY 01/25/20 (more content not included)...[facility] 03-13-2024 History of Present illness Narrative* Jagjit [...] Lymph 1.00 - 4.00 k/uL 0.82 (L) [place]% % 7.5 Abs [place] <0.87 k/uL 0.31 Eosin% % 1.4 Abs [...] Right 1988 LAPS SURG CHOLECYSTECTOMY W/CHOLANGIOGRAPHY 2004 [facility] - Dr. 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 EPIGASTRIC HERNIA,REDUC 07/19/2023 umbilical TONSILLECTOMY PRIMARY/SECONDARY <AGE 12 Tonsillectomy FAMILY HISTORY Problem Relation Age of Onset Hypertension Mother Heart Mother Stroke Mother Allergies Mother Breast Cancer Mother Heart Father of MD Allergies Father Asthma Daughter Allergies Sister Allergies [...] stable. Jagjit Cheema MD documented in this encounterCincinnati [facility]09-20-2024 Telephone encounter Note * Telephone Encounter - Asuncion Robertson LPN - 03/08/2024 4:41 PM EDT Phoned patient and went over results, notes from Dr Cheema with understanding. Patient will take 2 tablets of potassium with supper tonight and keep his appt on Monday. [facility]09-20-[facility] Miscellaneous Notes* Telephone Encounter - Asuncion [...] No signs of diverticulitis. documented in this encounterCincinnati [facility]09-20-2024 Telephone encounter Note * Telephone Encounter - Jagjit Cheema MD - 03/08/2024 4:[address] was ok. Potassium was slightly low. I have him taking potassium. Can take an extra dose today, keep follow up next week. No signs of diverticulitis. [facility]09-20-[facility] History of Present illness Narrative* Fanny [...] PATIENT PRESENTS WITH AN IMPLANTABLE OR ATTACHED ARTIFICIAL FLOWER MAKER: No ALLERGIES: Reviewed and unchanged CONTRAST ALLERGY: [...] 2024 TIME: 4:02 PM documented in this encounterCincinnati [facility]rin[facility]09-20-2024 NoteHNO ID: [id number] Author: FANNY SINGH RT(R) Service: Radiology Author [...] PATIENT PRESENTS WITH AN IMPLANTABLE OR ATTACHED ARTIFICIAL FLOWER MAKER: No ALLERGIES: Reviewed and unchanged CONTRAST ALLERGY: [...] Garzon DATE: March 08, 2024 TIME: 4:02 [facility]09-20-2024 NoteHNO ID: [id number] Author: JAGJIT CHEEMA MD Service: ? Author [...] his focus and finish sentences Still seeing [facility]. Still on adrogen therapy per [...] Right 1988 LAPS SURG CHOLECYSTECTOMY W/CHOLANGIOGRAPHY 2004 [facility] - Dr. Bales OPEN REPAIR OF ROTATOR CUFF ACUTE Rotator cuff repair PERCUTANEOUS CORONARY INTERVENTION 2007 stent to LAD REPAIR EPIGASTRIC HERNIA,REDUC 07/19/2023 umbilical TONSILLECTOMY PRIMARY/SECONDARY Tonsillectomy FAMILY HISTORY Problem Relation Age of Onset Hypertension Mother Heart Mother Stroke Mother Allergies Mother Breast Cancer Mother Heart Father of MD Allergies Father Asthma Daughter Allergies Sister Allergies Brother Allergies Daughter Social History Tobacco Use Smoking status: Former Current packs/day: 0.00 Average packs/day: 2.0 packs/day for 5.0 years (10.0 ttl pk-yrs) Types: Cigarettes Start date: 02/08/1982 Quit date: 02/08/1987 Years since quittin.1 Smokeless tobacco: Former Types: Chew Quit date: 12/03/2017 (more content not included)...[facility] 03-08-2024 History of Present illness Narrative* Jagjit [...] Right 1988 LAPS SURG CHOLECYSTECTOMY W/CHOLANGIOGRAPHY 2004 [facility] - Dr. 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 EPIGASTRIC HERNIA,REDUC 07/19/2023 umbilical TONSILLECTOMY PRIMARY/SECONDARY <AGE 14 Tonsillectomy FAMILY HISTORY Problem Relation Age of Onset Hypertension Mother Heart Mother Stroke Mother Allergies Mother Breast Cancer Mother Heart Father of MD Allergies Father Asthma Daughter Allergies Sister Allergies [...] tenderness ASSESSMENT/PLAN: 1. 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 2. Hyperlipidemia, unspecified hyperlipidemia type [...] RTO early next weeks. documented in this encounterCincinnati Shrin[facility] Hospital07-23-2024 Instructions* Patient Instructions* Beverley Gutierrez APRN.CNP - 01/09/2024 3:52 PM EDT 1) Paxlovid ordered 2) Hold atorvastatin while on medication 3) Rest & plenty of fluids 4) See Susan 01/26/24 documented in this encounterCincinnati Shriners [facility]07-23-2024 NoteHNO ID: [id number] Author: BEVERLEY GUTIERREZ APRN.CNP Service: ? Author Type: Clinical Nurse Specialist Type: Progress Notes Filed: 01/09/2024 15:53 Note Text: This Team Access Model visit is a phone encounter. It required patient-provider interaction for the medical decision making as documented below. Chief Reason For Appointment No chief complaint on file. Sscmys-ld-mwm and people from was sick. Lazaro Garzon [...] - 12/25/2013 Comment: 02/29/20 admit ED to [facility] chest pain,HUGGINS . EKG no changes. [...] Right 1988 LAPS SURG CHOLECYSTECTOMY W/CHOLANGIOGRAPHY 2004 [facility] - Dr. Bales OPEN REPAIR OF [...] No current facility-administered medicat (more content not included)...[facility]07-23-2024 History of Present illness Narrative* Beverley Gutierrez APRN.ROSITA - 01/09/2024 3:40 PM EDT This Team Access Model visit is a phone encounter. It required patient-provider interaction for themedical decision making as documented below. Chief Reason For Appointment No chief complaint on file. Rbgojv-yb-zvu and people from was sick. Lazaro Garzon [...] - 12/25/2013 Comment: 02/29/20 admit ED to [facility] chest pain,HUGGINS . EKG no changes. [...] Right 1988 LAPS SURG CHOLECYSTECTOMY W/CHOLANGIOGRAPHY 2004 [facility] - Dr. Bales OPEN REPAIR OF [...] as needed for worsening/no improvement. Beverley Gutierrez APRN.ROSITA Follow Up Plans: 01/26/24 Nurse to discuss sign up for my chart if applies. Send email link after confirming email address documented in this encounterCinc[facility]07-12-2024 History of Present illness Narrative* Jagjit [...] Right 1988 LAPS SURG CHOLECYSTECTOMY W/CHOLANGIOGRAPHY 2004 [facility] - Dr. 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 EPIGASTRIC HERNIA,REDUC 07/19/2023 umbilical TONSILLECTOMY PRIMARY/SECONDARY <AGE 12 Tonsillectomy FAMILY HISTORY Problem Relation Age of Onset Hypertension Mother Heart Mother Stroke Mother Allergies Mother Breast Cancer Mother Heart Father of MD Allergies Father Asthma Daughter Allergies Sister Allergies [...] RTO in one month documented in this encounterCincinnati Shrin[facility] Hospital06-26-2024 Telephone encounter Note * Telephone Encounter - Sara Maria LPN - 12/13/2023 4:08 PM EDT Pt notified of results & all instructions, pt voiced understanding. Sara Maria LPN [facility]06-26-2024 Miscellaneous Notes* Telephone Encounter - Sara [...] - 12/13/2023 12:29 PM EDT Dyana with [facility] hospital calls to request order be changed to CT A Chest with and without contrast. Couldn't find that order to pend. Requests order be faxed back to [phone]. Brenda Louis RN * Telephone Encounter - Reynaldo Zarate LPN - 12/13/2023 11:26 AM EDT Phoned [facility], order faxed. Pt can be scanned as soon as possible. Reynaldo Zarate LPN * Telephone Encounter - Susan Kerr APRN.ROSITA - 12/13/2023 11:01 AM EDT Pt schedule for stat CT at [place] at 3:00. Can we see if [facility] has anything sooner? Susan Kerr APRN.ROSITA documented in this encounterCincinnati [facility]06-26-2024 Telephone encounter Note * Telephone Encounter - Susan Kerr APRN.ROSITA [...] to the ER with any severe symptoms. [facility]06-26-[facility] Telephone encounter Note* Telephone Encounter - Reynaldo Zarate LPN - 12/13/2023 1:09 PM EDT Order faxed. Will leave encounter open until results recieved. Reynaldo Zarate LPN [facility]06-26-2024 Telephone encounter Note* Telephone Encounter - Susan Kerr APRN.CNP - 12/13/2023 12:45 PM EDT Order placed. Please fax, as requested. [facility]06-26-[facility] Telephone encounter Note* Telephone Encounter - Brenda Louis RN - 12/13/2023 12:29 PM EDT Dyana with [facility] hospital calls to request order be changed to CT A Chest with and without contrast. Couldn't find that order to pend. Requests order be faxed back to [phone]. Brenda Louis RN [facility]06-26-2024 Telephone encounter Note* Telephone Encounter - Reynaldo Zarate LPN - 12/13/2023 11:26 AM EDT Phoned [facility], order faxed. Pt can be scanned as soon as possible. Reynaldo Zarate LPN [facility]06-26-2024 Telephone encounter Note* Telephone Encounter - Susan Kerr APRN.CNP - 12/13/2023 11:01 AM EDT Pt schedule for stat CT at [place] at 3:00. Can we see if [facility] has anything sooner? Susan Kerr APRN.ROSITA [facility]06-26-2024 Instructions* Patient Instructions* Susan Kerr APRN.CNP - 12/13/2023 10:08 AM EDT Get stat CT documented in this encounterCincinnati Shriners Hospital06-26-2024 History of Present illness Narrative* Susan Kerr APRN.ROSITA - 12/13/2023 9:36 AM EDT This is [...] and changing CPAP tubing driving up to [place], really hot, 'everything went black', pt lowered [...] X 2. Hx of pneumonia. Traveled to [place] a couple of weeks ago. No fevers/chills Body aches Dizziness Nausea and vomiting last week but nothing now Constipation, abdomen tenderness Wears CPAP at night Recent travel to [place] a few weeks ago Recently had pneumonia [...] Right 1988 LAPS SURG CHOLECYSTECTOMY W/CHOLANGIOGRAPHY 2004 [facility] - Dr. Bales OPEN REPAIR OF [...] Mother Breast Cancer Mother Heart Father of MD Allergies Father Asthma Daughter Allergies Sister Allergies [...] agrees with the plan. documented in this encounterCincinnati [facility]06-14-2024 Telephone encounter Note * Telephone Encounter - Dionisio Chavez LPN - 12/01/2023 11:49 AM EDT Patient Yasthart message requesting the following refill Refill(s) Requested: Requested Prescriptions Pending Prescriptions Disp Refills potassium chloride (K-TAB) 10 mEq tablet 180 tablet 1 Sig: Take 2 tablets by mouth once daily. ALLERGIES Allergen Reactions Sulfa (Sulfonamide * Rash (home) [phone] (cell) Last Office Visit Date: 11/29/2023 Last Distance Health Visit: 10/25/2023 Future Appointment: 12/22/2023 The patients preferred pharmacy has been captured for this encounter? yes Request is for script(s) to be escript to pharmacy. Dionisio Chavez LPN [facility]06-14-2024 Miscellaneous Notes* Telephone Encounter - Dionisio Chavez LPN - 12/01/2023 11:49 AM EDT Patient Yasthart message requesting the following refill Refill(s) Requested: Requested Prescriptions Pending Prescriptions Disp Refills potassium chloride (K-TAB) 10 mEq tablet 180 tablet 1 Sig: Take 2 tablets by mouth once daily. ALLERGIES Allergen Reactions Sulfa (Sulfonamide * Rash (home) [phone] (cell) Last Office Visit Date: 11/29/2023 Last [facility] Visit: 10/25/2023 Future Appointment: 12/22/2023 The patients preferred pharmacy has been captured for this encounter? yes Request is for script(s) to be escript to pharmacy. Dionisio Chavez LPN documented in this encounterCincinnati [facility]06-12-2024 History of Present illness Narrative* Jagjit Cheema MD - 11/29/2023 1:55 PM EDT Patient presents with: Follow Up HPI: Patient presents today for office visit for follow up. ADD: Current Treatment: Gautam Feels treatment is working well: Yes. Much [...] Right 1988 LAPS SURG CHOLECYSTECTOMY W/CHOLANGIOGRAPHY 2004 [facility] - Dr. 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 EPIGASTRIC HERNIA,REDUC 07/19/2023 umbilical TONSILLECTOMY PRIMARY/SECONDARY <AGE 12 Tonsillectomy FAMILY HISTORY Problem Relation Age of Onset Hypertension Mother Heart Mother Stroke Mother Allergies Mother Breast Cancer Mother Heart Father of MD Allergies Father Asthma Daughter Allergies Sister Allergies [...] 2022 Behavioral Health Screening Never done Covid-19 Vaccine(2022-24 season) due on 11/24/2023 VITALS: BP 136/84 [...] 20) Jagjit Cheema MD documented in this encounterCincinnati [facility]05-08-2024 History of Present illness Narrative* Jagjit [...] visit. Either the patient or their legal technology sales representative has been informed of the [...] Right 1988 LAPS SURG CHOLECYSTECTOMY W/CHOLANGIOGRAPHY 2004 [facility] - Dr. 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 EPIGASTRIC HERNIA,REDUC 07/19/2023 umbilical TONSILLECTOMY PRIMARY/SECONDARY <AGE 12 Tonsillectomy FAMILY HISTORY Problem Relation Age of Onset Hypertension Mother Heart Mother Stroke Mother Allergies Mother Breast Cancer Mother Heart Father of MD Allergies Father Asthma Daughter Allergies Sister Allergies [...] with more than 50% of the total jmsy-sb-nokb time of the visit in counseling / coordination of care. documented in this encounterCincinnati [facility]03-21-2024 Miscellaneous Notes* Telephone Encounter - Jagjit Cheema MD - 09/07/2023 7:57 AM EDT Labs are stable other than sugar being up. Recheck A1c. documented in this encounterCincinnati [facility]rin[facility]03-19-2024 History of Present illness Narrative* Jagjit [...] Right 1988 LAPS SURG CHOLECYSTECTOMY W/CHOLANGIOGRAPHY 2004 [facility] - Dr. 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 EPIGASTRIC HERNIA,REDUC 07/19/2023 umbilical TONSILLECTOMY PRIMARY/SECONDARY <AGE 12 Tonsillectomy FAMILY HISTORY Problem Relation Age of Onset Hypertension Mother Heart Mother Stroke Mother Allergies Mother Breast Cancer Mother Heart Father of MD Allergies Father Asthma Daughter Allergies Sister Allergies [...] TESTOSTERONE TOTAL 3. 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 Beverley Cruz LPN. documented in this encounterCincinnati [facility]riners [facility]02-07-2024 History of Past illness Narrative* Problem [...] 09/22/2022 146/62 Shortness of breath 02/08/2007 07/13/19 Palpitations 09/30/2005 07/13/2018 documented as of this encounter (statuses as of 09/05/2023) [facility] History of Past illness Narrative* Problem [...] of this encounter (statuses as of 09/06/2023) [facility] History of Past illness Narrative* Problem [...] of this encounter (statuses as of 09/07/2023) [facility]01-31-2024 NoteHNO ID: [id number] Author: MISTY JACKSON APRN.GOLF TECHNICIAN Service: Anesthesiology Author Type: Nurse Associate Store Manager Type: Anesthesia Procedure Notes Filed: 07/19/2023 09:22 Note Text: ANESTHESIOLOGY PROCEDURE NOTE Airway General Information Procedure Start Time/Medication Administration: 07/19/2023 9:07 AM Patient location during procedure: OR Timeout Performed Pre-procedure: timeout performed Consent Obtained: Yes 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 Staffing GOLF TECHNICIAN: Misty Jackson APRN.GOLF TECHNICIAN Performed by: GOLF TECHNICIAN Indications and Patient Condition Indications for airway [...] and doubled bath blanket SIGNATURE: Misty Jackson APRN.GOLF TECHNICIAN PATIENT NAME: Lazaro Garzon DATE: July 19, 2023 TIME: 9:21 AM CSN: [id number] Telephone encounter Note* Telephone Encounter - Omaira Gallegos - 06/30/2023 11:00 AM EST 07/19/2023 UMBILICAL HERNIA REPAIR FORD [facility]01-12-[facility]24 Miscellaneous Notes* Telephone Encounter - Omaira Gallegos - 06/30/2023 11:00 AM EST 07/19/2023 UMBILICAL HERNIA REPAIR FORD documented in this encounterCincinnati Shriners Hospital12-21-2023 Miscellaneous Notes* Telephone Encounter - Beverley [...] you. Beverley Cruz LPN. documented in this encounterCincinnati Shriners Hospital12-04-2023 Discharge summary Author Vivian Mcintyre [facility] May 22, 2023 1:02pm Note Date/Time May 22, 2023 1 :02pm [facility] Physical Therapy [facility] [address] [place] [address] / REHABILITATION SERVICES DISCHARGE SUMMARY MR#: [id number] Acct: [id number] Name: LAZARO GARZON Rep #: [id number] : 1955 67 From: Vivian Mcintyre PT, Cert. MDT Referring Dr.: OUT OF [facility] DOCTOR Status: REG RCR Insurance: MEDICARE PART A B [facility] Discharge Summary D/C summary: It has been [...] please feel free to call me at [phone]. Thank you for the referral of thispatient. Sincerely, Vivian Mcintyre, PT, Cert MDT Balance/Gait/Functional tests Balance/Special Test Scores Lower Extremity Functional Score: 76 <Electronically signed by Vivian Mcintyre PT Cert. MDT> 05/22/23 1302 CC: Dr. Jagjit Cheema MD; ARVIND TELLEZ ~ SIVAN Signed [facility] Work Phone: 1(303) 997-211610-16-2023 History of Present illness Narrative* Shannon Vázquez, RT(R) - 04/03/2023 10:40 AM EDT Radiology [...] RT Dez(R) April 03, 2023 10:58 AM documented in this encounterCincinnati Shriners Hospital08-07-2023 History of Present illness Narrative* Jagjit [...] Right 1988 LAPS SURG CHOLECYSTECTOMY W/CHOLANGIOGRAPHY 2004 [facility] - Dr. Bales OPEN REPAIR OF ROTATOR CUFF ACUTE Rotator cuff repair PERCUTANEOUS CORONARY INTERVENTION 2006 stent to LAD TONSILLECTOMY PRIMARY/SECONDARY <AGE 12 Tonsillectomy FAMILY HISTORY Problem Relation Age of Onset Hypertension Mother Heart Mother Stroke Mother Allergies Mother Breast Cancer Mother Heart Father of MD Allergies Father Asthma Daughter Allergies Sister Allergies [...] MG TABLET 6. 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 Jagjit Cheema MD documented in this encounterCincinnati Shriners Hospital07-18-2023 Miscellaneous Notes* Telephone Encounter - Vee Weinberg LPCC - 01/03/2023 2:36 PM EDT Behavioral Health Social Work Progress Note Patient identified for [facility] from: PCP Reason for referral: Resources Behavioral Health Resources: Psychology - talk therapy [facility] encounter type: Telephone Encounter Attempts to Outreach: 1 attempt Referral made: Psychology - Internal, Psychology - External Psychology-Internal referral type: Therapy Psychology-External referral type: Therapy Patient Discharged?: No Phone call placed today that went to [employer]. Left my contact information and brief nature of call. Initial outreach also completed via [employer] sending list of in network providers with insurance. AARON Zuñiga-S January 03, 2023 documented in this encounterCincinnati Shriners Hospital07-06-2023 Miscellaneous Notes* Telephone Encounter - Beverley [...] you. Beverley Cruz LPN documented in this encounterCincinnati Shriners Hospital07-03-2023 History of Present illness Narrative* Jagjit [...] showed mild hypokalemia and leukocytosis. Went back [facility] on 12/15/22 with a 104 temp. [...] Right 1988 LAPS SURG CHOLECYSTECTOMY W/CHOLANGIOGRAPHY 2004 [facility] - Dr. Bales OPEN REPAIR OF ROTATOR CUFF ACUTE Rotator cuff repair PERCUTANEOUS CORONARY INTERVENTION 2007 stent to LAD TONSILLECTOMY PRIMARY/SECONDARY <AGE 12 Tonsillectomy FAMILY HISTORY Problem Relation Age of Onset Hypertension Mother Heart Mother Stroke Mother Allergies Mother Breast Cancer Mother Heart Father of MD Allergies Father Asthma Daughter Allergies Sister Allergies [...] DIFF Jagjit Cheema MD documented in this encounterCincinnati Shriners Hospital06-30-2023 Discharge summary Author Nahum Dias [facility] December 16, 2022 1:25am Note Date/Time December 15, 2022 7:31 pm [facility] Medical Records Department [address] [place] [address] Emergency Department Summary 12/15/22 MR#: [id number] Acct: [id number] Name: LAZARO GARZON Rep #:[id number] : 1955 67 From: Nahum Bagley PCP: Dr. Jagjit Cheema MD Status:ADM I N Location: [place] [address]-1 HPI History of Present Illness Chief Complaint: [...] his chest when he takes deep breaths. [facility] Medical History Abnormal myocardial perfusion study Abnormal stress test Acute pyelonephritis Atherosclerotic heart disease of seminole coronary artery without angina pectoris BPH (benign prostatic hyperplasia) Claudication Confusion Dyspnea on exertion Essential hypertension Fibromyalgia GERD (gastroesophageal reflux disease) H/O percutaneous transluminal coronary angioplasty History of shingles HTN (hypertension) Obesity DEENA (obstructive sleep apnea) Prostate enlargement Pulmonary embolism Pure hypercholesterolemia Rectal bleeding Testosterone deficiency TIA (transient ischemic attack) Unstable angina UTI (urinary tract infection) Home Medications multivitamin,vi-vcxo-grtmdlwv 27 mg-0.4 mg tablet 1 tab PO [...] 90.2 H Lymph % (Auto) 4.4 L Goliad % (Auto) 4.0 Eos % (Auto) 0.7 [...] Plan Triage Chief Complaint: Fever ED Provider: Nhaum Dias Dx/Rx/DC Orders Clinical Impression: Complicated urinary [...] 81 mg PO DAILY Qty: 90 0RF multivitamin,yw-pkfh-zbtoswfr 1 TABLET tablet 1 tab PO DAILY [...] Provider] - Disposition Disposition: Acute Care Hospital [facility] What to do if you have Problems For any increased pain, shortness of breath, bleeding, nausea or vomiting, chestpain, or any unexpected problems, contact your Primary Care Provider. Call [facility] ([phone]) or report to the closest Emergency Room. Call 911 if necessary. 12/16/22 0125 <Electronically signed by Nahum iDas DO> Cosigner Signature (if applicable): CC: Dr. Jagjit Cheema MD ~ Signed [facility] Work Phone: 1(413) 102-198206-30-2023 Progress note Author [facility] December 16, 2022 12:19am Note Date/Time December 16, 2022 12:2 0am [facility] Medical Records Department [address] [place] [address] Progress Note - Hospitalist 12/16/2218 MR#: [id number] Acct: [id number] Name: LAZARO GARZON Rep #:[id number] : 1955 67 From: Lucy Partida MD PCP: Dr. Jagjit Cheema MD Status:ADM I N Location: [place] [address] Hospitalist Note Patient noted willingness to restart eliquis regimen. Reports to staff occasionally having intermittent palpitations. 12/16/2218 <Electronically signed by Lucy Partida MD> Cosigner Signature (if applicable): CC: ~ Signed [facility] Work Phone: 1(855) 803-942606-30-2023 History and physical note Author [facility] December 15, 2022 10:52pm Note Date/Time December 15, 2022 10:1 1pm [facility] Medical Records Department [address] [place] [address] H&P Exam - Hospitalist 12/15/222209 MR#: [id number] Acct: [id number] Name: LAZARO GARZON Rep #:[id number] : 1955 67 From: Lucy Partida MD PCP: Dr. Jagjit Cheema MD Status:ADM I N Location: [place] [address] HPI - General General Date of Admission: 12/15/22 Date of Service: 12/15/22 Chief Complaint: Recent UTI Dx, ongoing fevers, chills. HPI Narrative The patient is a 67 y/o M w/ PMHx: Hx DVT/PE, PAF/Flutter, Chronic thrombocytopenia, DEENA on CPAP q HS, Former tobacco use, CAD s/p PCI, HTN, HLD, GERD, Fibromyalgia, BPH, Hx TIA, Obesity who presents to the [facility] ED on 12/15/22 with history of [...] IV x1, Zofran 4 mg [facility] x1. [facility] History Abnormal myocardial perfusion study Abnormal stress test Acute pyelonephritis Atherosclerotic heart disease of seminole coronary artery without angina pectoris BPH (benign prostatic hyperplasia) Claudication Confusion Dyspnea on exertion Essential hypertension Fibromyalgia GERD (gastroesophageal reflux disease) H/O percutaneous transluminal coronary angioplasty History of shingles HTN (hypertension) Obesity DEENA (obstructive sleep apnea) Prostate enlargement Pulmonary embolism Pure hypercholesterolemia Rectal bleeding Testosterone deficiency TIA (transient ischemic attack) Unstable angina UTI (urinary tract infection) Home Medications multivitamin,py-ujif-wnzrmhof 27 mg-0.4 mg tablet 1 tab PO [...] 90.2 H, Lymph % (Auto) 4.4 L, Goliad % (Auto) 4.0, Eos % (Auto) 0.7, [...] Hx TIA, Obesity who presents to the [facility] ED on 12/15/22 with history of [...] Urinary Tract Infection: Will admit to [facility] upon ED evaluation remarkable, pending UCx, from [...] 08/2012, most recent repeat catheterization 2018 demonstrating seminole multivessel coronary disease and a patent LAD [...] 75 minutes. Charges/Coding Visit Charges Inpatient E&M: 44331 Init Hosp L3 12/15/22 2252 <Electronically signed by Lucy Partida MD> Cosigner Signature (if applicable): CC: Dr. Lucy Partida MD; Dr. Jagjit Cheema MD~ Signed [facility] Work Phone: 1(172) 919-258106-29-2023 Miscellaneous Notes* Telephone Encounter - Tamra Chau RN - 12/15/2022 6:34 PM EDT Patient's son calling to say his father was seen @ [facility] ER yesterday afternoon and diagnosed with prostatitis. He was prescribed antibiotics. This afternoon patient developed fever with shaking chills. Patient took Acetaminophen for fever at 1730 PM without effect. Temp is now increasing to 104 Disposition: ED now. Patient's son is agreeable and will transport his father to [facility]. Tamra Chau RN Reason for Disposition Fever > 103 F (39.4 C) Urine infection (MALE; cystitis, pyelonephritis, prostatitis, epididymitis, orchitis, urethritis) diagnosed recently Answer Assessment - Initial Assessment Questions 1. ANTIBIOTIC: Antibiotic prescribed 12/14 @ [facility] ER 2. DURATION: Started yesterday 3. MAIN SYMPTOM: shaking chills and fever 4. FEVER: fever started this afternoon and is increasing. T-104 one hour after taking Acetaminophen 5. OTHER SYMPTOMS: Do you have any other symptoms? (e.g., flank pain, penile discharge, scrotal pain, blood in urine) Protocols used: Recent Medical Visit for Illness Follow-up [id number]-TV, Urinary Tract Infection on Antibiotic Follow-up Call - Ajej-UUGVP-ZA documented in this encounterCincinnati Shriners Hospital06-28-2023 History of Present illness Narrative* Jagjit [...] Right 1988 LAPS SURG CHOLECYSTECTOMY W/CHOLANGIOGRAPHY 2004 [facility] - Dr. Bales OPEN REPAIR OF ROTATOR CUFF ACUTE Rotator cuff repair PERCUTANEOUS CORONARY INTERVENTION 2006 stent to LAD TONSILLECTOMY PRIMARY/SECONDARY <AGE 12 Tonsillectomy FAMILY HISTORY Problem Relation Age of Onset Hypertension Mother Heart Mother Stroke Mother Allergies Mother Breast Cancer Mother Heart Father of MD Allergies Father Asthma Daughter Allergies Sister Allergies [...] E86.0 Jagjit Cheema MD documented in this encounterCincinnati Shriners Hospital05-09-2023 Miscellaneous Notes* Telephone Encounter - Allison Tavares RN - 10/25/2022 3:32 PM EDT Juliane from [facility] calls and is asking for provider [...] advise, Allison Tavares RN documented in this encounterCincinnati Shriners Hospital05-09-2023 History of Present illness Narrative* Jagjit [...] decreased ambition. 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 Not sure he can afford counseling right now. No suicidal ideation. 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 Labs were all stable. Component Latest [...] Abs Lymph 1.00 - 4.00 k/uL 1.14 Goliad% % 8.6 Abs Goliad <0.87 k/uL 0.42 Eosin% % 1.6 Abs [...] Right 1987 LAPS SURG CHOLECYSTECTOMY W/CHOLANGIOGRAPHY 2004 [facility] - Dr. Bales OPEN REPAIR OF ROTATOR CUFF ACUTE Rotator cuff repair PERCUTANEOUS CORONARY INTERVENTION 2006 stent to LAD TONSILLECTOMY PRIMARY/SECONDARY <AGE 12 Tonsillectomy FAMILY HISTORY Problem Relation Age of Onset Hypertension Mother Heart Mother Stroke Mother Allergies Mother Breast Cancer Mother Heart Father of MD Allergies Father Asthma Daughter Allergies Sister Allergies [...] - stable. 3. 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- ICD9: 414.01, ICD10: I25.10 - call if any issues. 4. Atrial flutter, unspecified type (HCC) - ICD9: 427.32, ICD10: I48.92 - stable. 5. Adjustment disorder with anxious mood - ICD9: 309.24, ICD10: F43.22 - increase meds. Call if any issues. - SERTRALINE 50 MG TABLET Jagjit Cheema RTO in two months and prn. documented in this encounterCincinnati Shriners Hospital04-07-2023 Miscellaneous Notes* Telephone Encounter - ZENAIDA Franco - 09/23/2022 1:14 PM EDT BEHAVIORAL HEALTH SOCIAL WORK CONSULT NOTE Service Date: September 23, 2022 Patient was identified by name and Patient: Lazaro Garzon [address] [place] [address] (home) [phone] (cell) PCP: Jagjit Cheema MD [address] [place] [address] Patient identified for [facility] from: PCP Reason for referral: Resources Behavioral Health Resources: Psychology - talk therapy [facility] encounter type: Telephone Encounter Assessment: Referral made to engage patient experiencing an Adjustment Disorder and to provide therapy resources. [facility] reviewed patient's chart and insurance to identify resources. Patient stated they are experiencing stress. Patient denies suicidal or homicidal ideation. Patient identified he does not want toengage in therapy at this time. [facility] provided his contact information to patient if [...] 15 minutes ZENAIDA Franco-S documented in this encounterCincinnati Shriners Hospital04-06-2023 History of Present illness Narrative* Jagjit [...] down. No suicidal ideation. Not sleeping frequently. 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 Not current lung issues. [...] Right 1988 LAPS SURG CHOLECYSTECTOMY W/CHOLANGIOGRAPHY 2004 [facility] - Dr. Bales OPEN REPAIR OF ROTATOR CUFF ACUTE Rotator cuff repair PERCUTANEOUS CORONARY INTERVENTION 2006 stent to LAD TONSILLECTOMY PRIMARY/SECONDARY <AGE 12 Tonsillectomy FAMILY HISTORY Problem Relation Age of Onset Hypertension Mother Heart Mother Stroke Mother Allergies Mother Breast Cancer Mother Heart Father of MD Allergies Father Asthma Daughter Allergies Sister Allergies [...] 25 HYDROXY 6. 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- ICD9: 414.01, ICD10: [...] HYDROXY Jagjit Cheema MD documented in this encounterCincinnati Shriners Hospital03-21-2023 Miscellaneous Notes* Telephone Encounter - Beverley Cruz LPN - 09/06/2022 12:12 PM EDT Please see expresscoin message. * Telephone Encounter - Beverley Cruz [...] Medication has not been refilled since 08/13/2020, expresscoin message sent for reason why. Please advise. Thank you. Beverley Cruz LPN documented in this encounterCincinnati Shriners Hospital02-21-2023 Procedure [facility]02-21-2023 History and physical note Author Dr. Alfred [facility] August 09, 2022 11:07am Note Date/Time August 08, 2022 8:23am [facility] Medical Records Department [address] [place] [address] History & Physical Exam 08/08/22 0821 MR#: [id number] Acct: [id number] Name: LAZARO GARZON Rep #:[id number] : 1955 66 From: Willis Alfred MD PCP: Dr. Jagjit Cheema MD Status:REG S DC Location: [facility] History and Physical Date of Admission: 08/09/22 [facility] [address] [place] [address] OFFICE VISIT Date of Service:? 08/03/22 MR#: [id number] Acct: [id number] Name:LAZARO GUTIERREZ Rep #: [id number] : 1955 ? Provider: ?SARA Gooden Age/Sex:? 66/M Location: [facility] Status: Signed HPI HPI History of Present [...] (%) 98 ? Intake Visit Reasons:?UPDATE H&P Vp Director Of Finance Required: No Is patient in pain?: No Allergies Sulfa (Sulfonamide Antibiotics) Allergy (Verified 08/03/22 08:43) Unknown Medications multivitamin,lr-xoqy-wouwxwoo 27 mg-0.4 mg tablet 1 tab PO [...] patient, no changes in medications. PFSH Medical History? Abnormal myocardial perfusion study Abnormal stress test Acute pyelonephritis Atherosclerotic heart disease of seminole coronary artery without angina pectoris BPH (benign prostatic hyperplasia) Claudication Confusion Dyspnea on exertion Essential hypertension Fibromyalgia GERD (gastroesophageal reflux disease) H/O percutaneous transluminal coronary angioplasty History of shingles HTN (hypertension) Obesity DEENA (obstructive sleep apnea) Prostate enlargement Pulmonary embolism Pure hypercholesterolemia Rectal bleeding Testosterone deficiency TIA (transient ischemic attack) Unstable angina UTI (urinary tract infection) Surgical History?(Reviewed 08/03/22 @ 08:44 by Aparna Gooden TECHNICAL APPLICATIONS SPECIALIST, TECHNICAL APPLICATIONS SPECIALIST-C) History of arthroscopy of right knee History of back surgery History of laparoscopic cholecystectomy History of left heart catheterization (LHC) History of PTCA (~08/2012) History of repair of rotator cuff History of tonsillectomy and adenoidectomy History of transurethral resection of prostate Presence of coronary angioplasty implant and graft (~08/2012) Presence of stent in coronary artery (~08/2012) Spinal cord stimulator status (~05/2021) Family History?(Reviewed 08/03/22 @ 08:44 by Aparna Gooden TECHNICAL APPLICATIONS SPECIALIST, TECHNICAL APPLICATIONS SPECIALIST-C) Mother CAD (coronary artery disease) Hypertension Hx of CABGFather Hypertension Myocardial infarctionGrandfather Myocardial infarction ?? ? paternalGrandmother Cancer ?? ? pancreatic CAGrandfather CAD (coronary artery disease) Social History?(Reviewed 08/03/22 @ 08:44 by Aparna Gooden TECHNICAL APPLICATIONS SPECIALIST, TECHNICAL APPLICATIONS SPECIALIST-C) Smoking Status:? Former smoker quit date: 06/19/94 [...] function LVEF: by LV gram 60 % [place] Multivessel CAD (LAD: Proximal Stent: Patent) RECOMMENDATIONS [...] most recent cardiac catheterization from 2018 demonstrated seminole multivessel CAD, and a patent stent in [...] I25.1 0 - Atherosclerotic heart disease of seminole coronary artery without angina pectoris, I48.92 - [...] cardioversion on 08/09/2022 ? ? 3 Months (TECHNICAL APPLICATIONS SPECIALIST/PA) COVID (Procedure Consent) Procedure Criteria Procedure Criteria: [...] by Aparna Gooden NP, NP-C> Date Aparna GUARDADOC Cosigner Signature: Date (if applicable) CC:? Dr. [...] Alfred MD; Dr. Jagjit Cheema MD~ Signed [facility] Work Phone: 1(941) 216-974301-04-2023 Miscellaneous Notes* Telephone Encounter - Fouzia Cope LPN - 06/22/2022 11:06 AM EST Patient phones requesting refills as follows: Requested Prescriptions Pending Prescriptions Disp Refills potassium chloride (K-TAB) 10 mEq tablet 180 tablet 1 Sig: Take 2 tablets by mouth once daily. CRUZITO-11/29/21 Labs-04/29/22 NOV-none med filled 11/16/21 Please review and advise. Fouzia Cope LPN documented in this encounterCincinnati Shriners Hospital09-24-2022 Miscellaneous Notes* Telephone Encounter - Grace Darden Ma - 03/12/2022 9:20 AM EDT Last office visit: 11/29/21 F/u scheduled: none Grace Darden Ma documented in this encounterCincinnati Shriners Hospital09-06-2022 Miscellaneous Notes* Telephone Encounter - Grace Darden Ma - 02/22/2022 2:22 PM EDT Last office visit: 11/29/21 F/u scheduled: none Grace Darden Ma documented in this encounterCincinnati Shriners Hospital09-06-2022 Miscellaneous Notes* Telephone Encounter - Grace Darden Ma - 02/22/2022 1:56 PM EDT Last office visit: 11/29/21 F/u scheduled: none Grace Darden Ma documented in this encounterCincinnati Shriners Hospital08-27-2022 History of Present illness Narrative* Carolann Lucas APRN.ROSITA - 02/12/2022 11:04 AM EDT Subjective The history is provided by the patient. No foreign language stenographer was used. JOHNATHON Garzon is a 66 year old male [...] have confirmed and edited as necessary, the [facility] Review of Systems Constitutional: Negative for [...] indetail warranting prompt ER evaluation. Carolann Lucas APRN.ROSITA documented in this encounterCincinnati Shriners Hospital06-21-2022 Miscellaneous Notes* Telephone Encounter - Sandy Velez LPN - 12/07/2021 10:20 AM EDT Pt called and states he had COVID then started with Shingles. He is taking medication for shingles and now he is having problems with his sinuses and starting to have problems with his ears. Pt instructed would need to be seen and evaluated. Pt states he is in [place] and will go to a stat care there. Sandy Velez LPN documented in this encounterCincinnati Shriners Hospital06-13-2022 Miscellaneous Notes* Telephone Encounter - Kira [...] Please call if/when sent. documented in this encounterCincinnati Shriners Hospital06-13-2022 Miscellaneous Notes* Telephone Encounter - Asuncion [...] any issues or worsening. documented in this encounterCincinnati Shriners Hospital06-13-2022 History of Present illness Narrative* Shannon Vázquez, RT(R) - 11/29/2021 1:00 PM EDT Radiology [...] 29, 2021 1:05 PM documented in this encounterCincinnati Shriners Hospital04-28-2022 History of Present illness Narrative* Lyssa Velez LPN - 10/14/2021 12:26 PM EDT Patient identified by name, orthostatic BP Recumbent 142/80 Standing 150/86 Sitting 148/84 Lyssa Velez LPN * Kisha Wen APRN.ROSITA - 10/14/2021 12:18 PM EDT Subjective Non [...] history is provided by the patient. No foreign language stenographer was used. Hypertension Review of Systems Constitutional: [...] Right 1988 LAPS SURG CHOLECYSTECTOMY W/CHOLANGIOGRAPHY 2004 [facility] - Dr. Bales OPEN REPAIR OF [...] Mother Breast Cancer Mother Heart Father of MD Allergies Father Asthma Daughter Allergies Sister Allergies [...] plan. Kisha Wen APRN.ROSITA documented in this encounterCincinnati Shriners Hospital03-25-2022 Instructions* Patient Instructions* Oliva Gutierrez PA-C [...] 10 to 15 minutes. documented in this encounterCincinnati Shriners Hospital03-25-2022 History of Present illness Narrative* Oliva [...] Right 1988 LAPS SURG CHOLECYSTECTOMY W/CHOLANGIOGRAPHY 2004 [facility] - Dr. Bales OPEN REPAIR OF ROTATOR CUFF ACUTE Rotator cuff repair PERCUTANEOUS CORONARY INTERVENTION 2006 stent to LAD TONSILLECTOMY PRIMARY/SECONDARY <AGE 12 Tonsillectomy FAMILY HISTORY Problem Relation Age of Onset Hypertension Mother Heart Mother Stroke Mother Allergies Mother Breast Cancer Mother Heart Father of MD Allergies Father Asthma Daughter Allergies Sister Allergies [...] results and radiologist's interpretation, available in the [facility] health record. Images were reviewed with [...] Level: 3 - Low documented in this encounterCincinnati Shriners Hospital03-25-2022 History of Present illness Narrative* Ema [...] 10, 2021 4:32 PM documented in this encounterCincinnati Shriners Hospital03-20-2021 History of Present illness Narrative* Abraham Rosa MD - 09/05/2020 11:45 AM EDT DATE OF SERVICE: 09/05/2020 SUBJECTIVE: Patient is here with a history of gout and right great toe pain beginning several days after he stopped taking his allopurinol. OBJECTIVE: Right great toe is tender. ASSESSMENT: Gout. PLAN: Prednisone 60 mg daily for up to 5 days. Resume other medications. MD ESEQUIEL Godoy/[id number] SSI File#: [id number] END OF DOCUMENT / CHANGE LOG FOLLOWS Last Edited By [employer]. Signed By Abraham oRsa MD #LANETTEUTH Abraham Rosa MD #LANETTEUTH on 09/14/2020 09:32 ET on 09/14/2020 09:32 ET Revision Number - 2 ^^^ Verified/Reviewed by 09/14/20 KELVIN [facility] PATIENT NAME: LAZARO GARZON MEDICAL REC #: [id number] [place], [place] ADMIT [facility] documented in this encounterCincinnati Shriners Hospital11-10-2020 History of Present illness Narrative* Ashwin Hernandez)Kd - 04/28/2020 4:00 PM EST documented in this encounterCincinnati Shriners Hospital10-01-2020 History of Present illness Narrative* Eyal [...] symptoms do not resolve. Eyal Montoya DO /[id number] SSI File#: [id number] END OF DOCUMENT / CHANGE LOG FOLLOWS Last Edited By [employer]. Signed By Eyal Montoya DO #LAURENGA Eyal Montoya DO #CLAGA on 03/23/2020 08:06 ET on 03/23/2020 08:06 ET Revision Number - 2 ^^^ Verified/Reviewed by 03/23/20 Jose G06 DARRIAN [facility] PATIENT NAME: LAZARO GARZON Domenic Matias MEDICAL REC #: [id number] [place], [place] ADMIT DATE: KANWAL STATCARE REPORT STATCARE PHYSICIAN [facility] of Past illness Narrative* Problem Noted Date Resolved Date Pulmonary embolism 10/11/2013 10/25/2022 Shortness of breath 02/08/2007 07/13/2018 Palpitations 09/30/2005 07/13/2018 documented as of this encounter (statuses as of 10/26/2022) [facility] of [facility] illness Narrative* Problem Noted Date Resolved Date Pulmonary embolism 10/11/2013 10/25/2022 Shortness of breath 02/08/2007 07/13/2018 Palpitations 09/30/2005 07/13/2018 documented as of this encounter (statuses as of 10/26/2022) [facility] illness Narrative* Problem Noted Date Resolved Date Pulmonary embolism 10/11/2013 10/25/2022 Shortness of breath 02/08/2007 07/13/2018 Palpitations 09/30/2005 07/13/2018 documented as of this encounter (statuses as of 11/23/2022) [facility] Narrative* Problem Noted Date Resolved Date Pulmonary embolism 10/11/2013 10/25/2022 Shortness of breath 02/08/2007 07/13/2018 Palpitations 09/30/2005 07/13/2018 documented as of this encounter (statuses as of 12/15/2022) [address]25-2014 History of Past illness Narrative* Problem Noted Date Resolved Date Pulmonary embolism 10/11/2013 10/25/2022 Shortness of breath 02/08/2007 07/13/2018 Palpitations 09/30/2005 07/13/2018 documented as of this encounter (statuses as of 12/20/2022) [address]25-2014 History of Past illness Narrative* Problem Noted Date Resolved Date Pulmonary embolism 10/11/2013 10/25/2022 Shortness of breath 02/08/2007 07/13/2018 Palpitations 09/30/2005 07/13/2018 documented as of this encounter (statuses as of 12/20/2022) [address]25-2014 History of Past illness Narrative* Problem Noted Date Resolved Date Pulmonary embolism 10/11/2013 10/25/2022 Shortness of breath 02/08/2007 07/13/2018 Palpitations 09/30/2005 07/13/2018 documented as of this encounter (statuses as of 12/22/2022) [place] [address]-25-2014 History of Past illness Narrative* Problem Noted Date Diagnosed Date Resolved Date Pulmonary embolism 10/11/2013 3 Shortness of breath 02/08/2007 07/13/19 19 Palpitations 09/30/2005 07/13/2018 documented as of this encounter (statuses as of 01/03/2023) [address]25-2014 History of Past illness Narrative* Problem Noted Date Diagnosed Date Resolved Date Pulmonary embolism 10/11/2013 3 Shortness of breath 02/08/2007 07/13/19 19 Palpitations 09/30/2005 07/13/2018 documented as of this encounter (statuses as of 01/04/2023) [address]25-2014 History of Past illness Narrative* Problem Noted Date Diagnosed Date Resolved Date Pulmonary embolism 10/11/2013 3 Shortness of breath 02/08/2007 07/13/19 19 Palpitations 09/30/2005 07/13/2018 documented as of this encounter (statuses as of 01/24/2023) [address]25-2014 History of Past illness Narrative* Problem Noted Date Diagnosed Date Resolved Date Pulmonary embolism 10/11/2013 Shortness of breath 02/08/2007 07/13/19 19 Palpitations 09/30/2005 07/13/2018 documented as of this encounter (statuses as of 06/09/2023) [address]23-2007 History of Past illness Narrative* Problem Noted Date Resolved Date Shortness of breath 02/08/2007 07/13/2018 Palpitations 09/30/2005 07/13/2018 documented as of this encounter (statuses as of 09/10/2021) [address]23-2007 History of Past illness Narrative* Problem Noted Date Resolved Date Shortness of breath 02/08/2007 07/13/2018 Palpitations 09/30/2005 07/13/2018 documented as of this encounter (statuses as of 10/14/2021) [address]23-2007 History of Past illness Narrative* Problem Noted Date Resolved Date Shortness of breath 02/08/2007 07/13/2018 Palpitations 09/30/2005 07/13/2018 documented as of this encounter (statuses as of 11/16/2021) [address]23-2007 History of Past illness Narrative* Problem Noted Date Resolved Date Shortness of breath 02/08/2007 07/13/2018 Palpitations 09/30/2005 07/13/2018 documented as of this encounter (statuses as of 11/22/2021) [address]23-2007 History of Past illness Narrative* Problem Noted Date Resolved Date Shortness of breath 02/08/2007 07/13/2018 Palpitations 09/30/2005 07/13/2018 documented as of this encounter (statuses as of 11/23/2021) [address]23-2007 History of Past illness Narrative* Problem Noted Date Resolved Date Shortness of breath 02/08/2007 07/13/2018 Palpitations 09/30/2005 07/13/2018 documented as of this encounter (statuses as of 11/29/2021) [address]23-2007 History of Past illness Narrative* Problem Noted Date Resolved Date Shortness of breath 02/08/2007 07/13/2018 Palpitations 09/30/2005 07/13/2018 documented as of this encounter (statuses as of 11/29/2021) [address]23-2007 History of Past illness Narrative* Problem Noted Date Resolved Date Shortness of breath 02/08/2007 07/13/2018 Palpitations 09/30/2005 07/13/2018 documented as of this encounter (statuses as of 12/14/2021) [address]23-2007 History of Past illness Narrative* Problem Noted Date Resolved Date Shortness of breath 02/08/2007 07/13/2018 Palpitations 09/30/2005 07/13/2018 documented as of this encounter (statuses as of 12/16/2021) [address]23-2007 History of Past illness Narrative* Problem Noted Date Resolved Date Shortness of breath 02/08/2007 07/13/2018 Palpitations 09/30/2005 07/13/2018 documented as of this encounter (statuses as of 02/12/2022) [address]23-2007 History of Past illness Narrative* Problem Noted Date Resolved Date Shortness of breath 02/08/2007 07/13/2018 Palpitations 09/30/2005 07/13/2018 documented as of this encounter (statuses as of 02/22/2022) [address]23-2007 History of Past illness Narrative* Problem Noted Date Resolved Date Shortness of breath 02/08/2007 07/13/2018 Palpitations 09/30/2005 07/13/2018 documented as of this encounter (statuses as of 02/22/2022) [address]23-2007 History of Past illness Narrative* Problem Noted Date Resolved Date Shortness of breath 02/08/2007 07/13/2018 Palpitations 09/30/2005 07/13/2018 documented as of this encounter (statuses as of 03/12/2022) [address]23-2007 History of Past illness Narrative* Problem Noted Date Resolved Date Shortness of breath 02/08/2007 07/13/2018 Palpitations 09/30/2005 07/13/2018 documented as of this encounter (statuses as of 04/21/2022) [address]23-2007 History of Past illness Narrative* Problem Noted Date Resolved Date Shortness of breath 02/08/2007 07/13/2018 Palpitations 09/30/2005 07/13/2018 documented as of this encounter (statuses as of 06/24/2022) [address]23-2007 History of Past illness Narrative* Problem Noted Date Resolved Date Shortness of breath 02/08/2007 07/13/2018 Palpitations 09/30/2005 07/13/2018 documented as of this encounter (statuses as of 09/06/2022) [facility] Narrative* Problem Noted Date Resolved Date Shortness of breath 02/08/2007 07/13/2018 Palpitations 09/30/2005 07/13/2018 documented as of this encounter (statuses as of 09/23/2022) [facility] Narrative* Problem Noted Date Resolved Date Shortness of breath 02/08/2007 07/13/2018 Palpitations 09/30/2005 07/13/2018 documented as of this encounter (statuses as of 09/23/2022) [facility] Author Librado Bah [facility] December 16, 2022 11:12am Note Date/Time December 16, 2022 11:0 7am [facility] Medical Records Department [address] [place] [id number] Instructions for Home/Discharge Instructions 12/16/22 1106 MR#: [id number] Acct: [id number] Name: LAZARO GARZON Rep #:[id number] : 1955 67 From: Librado Bah DO [...] 81 mg PO DAILY Qty: 90 0RF multivitamin,vv-rtoo-rovezski 1 TABLET tablet 1 tab PO DAILY [...] MD; Dr. Jagjit Cheema MD ~ Signed [facility] Work Phone: Discharge summary Author Librado Bah [facility] December 16, 2022 11:32am Note Date/Time December 16, 2022 11:3 2am [facility] Medical Records Department [address] [place] [address] Discharge Summary 12/16/22 1126 MR#: [id number] Acct: [id number] Name: LAZARO GARZON Rep #:[id number] : 1955 67 From: Librado Bah DO PCP: Dr. Jagjit Cheema MD Status:ADM I N Location: [facility]3 [id number] Providers Date of Admission: 12/15/22 Date of [...] #6 BPH Medications at Discharge Home Medications multivitamin,uh-minb-rgkpamrh 27 mg-0.4 mg tablet 1 tab PO [...] was seen in the emergency room at [facility] with complaints of elevated temperature at [...] potassium of 3.3. Patient was admitted to [place] [address] for acute cystitis, ESBL organism was suspected [...] 90.2 H, Lymph % (Auto) 4.4 L, [place] % (Auto) 4.0, Eos % (Auto) 0.7, [...] 82.1 H, Lymph % (Auto) 5.9 L, [place] % (Auto) 11.1 H, Eos % (Auto) [...] 81 mg PO DAILY Qty: 90 0RF multivitamin,mg-dlwc-tzskycps 1 TABLET tablet 1 tab PO DAILY [...] Self Care Charges/Coding Visit Charges Inpatient E&M: 88039 Disch Hosp 12/16/22 1132 <Electronically signed by Librado Bah DO> Cosigner Signature (if applicable): CC: Dr. Librado Bah DO; Dr. Jagjit Cheema MD~ Signed [facility] Work Phone: Evaluation note* Diagnosis Pes planus of both feet- Primary Acquired valgus deformity of right ankle Primary osteoarthritis of right ankle [facility] Diagnosis Feeling light headed- Primary Dizziness and giddiness [facility]* Diagnosis Onset Date Resolution Status Fatigue acute Atherosclerotic heart diseas e of [place] coronary artery without angina pectoris chronic Essential hypertension chron ic Presence of stent in coronary artery 2012 chronic Pure hypercholesterolemia ch ronic Testosterone deficiency 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 [facility] Work Phone: Evaluation note* Diagnosis Hypokalemia Hypopotassemia [facility] Onset Date Resolution Status Fatigue acute Atherosclerotic heart diseas e of [place] coronary artery without angina pectoris chronic Essential hypertension chron ic Presence of stent in coronary artery 2012 chronic Pure hypercholesterolemia ch ronic Testosterone deficiency 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 Fatigue acute Atherosclerotic heart diseas e of [place] coronary artery without angina pectoris chronic Essential hypertension chron ic Presence of stent in coronary artery 2012 chronic Pure hypercholesterolemia ch ronic Testosterone deficiency 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 [facility] Work Phone: Evaluation note* Diagnosis Facial pain- Primary Headache Right ear pain Otalgia, unspecified Acute right eye pain Pain in or around eye [facility]* Diagnosis GERD with esophagitis [facility] noteNo assessment information availableWSelect [facility] Work Phone: Evaluation note* Diagnosis Onset Date Resolution Status Atrial flutter acute Dyspnea acute Atherosclerotic heart diseas e of [place] coronary artery without angina pectoris chronic Essential hypertension chron ic Presence of stent in coronary artery 2012 chronic Pure hypercholesterolemia [facility] Work Phone: Evaluation note* Diagnosis Hypokalemia Hypopotassemia [facility] Diagnosis Onset Date Resolution Status Atrial flutter acute Dyspnea acute Atherosclerotic heart diseas e of [place] coronary artery without angina pectoris chronic Essential hypertension chron ic Presence of stent in coronary artery 2012 chronic Pure hypercholesterolemia ch ronic Atrial flutter acute Dyspnea acute Atherosclerotic heart diseas e of [place] coronary artery without angina pectoris chronic Essential hypertension chron ic Presence of stent in coronary artery 2012 chronic Pure hypercholesterolemia [facility] Work Phone: Evaluation note* Diagnosis Onset Date Resolution Status Atrial flutter acute Dyspnea acute Atherosclerotic heart diseas e of [place] coronary artery without angina pectoris chronic Essential hypertension chron ic Presence of stent in coronary artery 2012 chronic Pure hypercholesterolemia ch ronic Atrial flutter acute Dyspnea acute Atherosclerotic heart diseas e of [place] coronary artery without angina pectoris chronic Essential hypertension chron ic Presence of stent in coronary artery 2012 chronic Pure hypercholesterolemia ch ronic Atrial flutter acute Dyspnea acute Essential hypertension chron ic Presence of stent in coronary artery 2012 chronic Pure hypercholesterolemia [facility] Work Phone: Evaluation note* Diagnosis Bacterial sinusitis- Primary Unspecified sinusitis (chronic) Adjustment disorder with anxious mood Adjustment disorder with anxiety Essential hypertension, benign Other pulmonary embolism without acute cor pulmonale, unspecified chronicity (HCC) Hyperlipidemia, unspecified hyperlipidemia type 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 Sleep apnea, unspecified type Uncomplicated asthma, unspecified asthma severity, unspecified whether persistent Atrial flutter, unspecified type (HCC) Myalgia Mylagia and myositis, unspecified Disorder of bone, unspecified [facility] this encounter [facility]* Diagnosis Essential hypertension, benign- Primary History of pulmonary embolism Personal history of pulmonary embolism 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 Atrial flutter, unspecified type (HCC) Adjustment disorder with anxious mood Adjustment disorder with anxiety [facility] Diagnosis Adjustment disorder with anxious mood Adjustment disorder with anxiety [facility] this encounter [facility]* Diagnosis Urinary tract infection with hematuria, site unspecified- Primary Fever, unspecified fever cause Dehydration documented [facility] this encounter [facility]* Diagnosis Onset Date Resolution Status Atrial flutter acute Essential hypertension chron ic Presence of stent in coronary artery 2013 chronic Pure hypercholesterolemia ch ronic Complicated urinary tract infection acute Failure of outpatient treatment acute Thrombocytopenia acute [facility] Work Phone: Evaluation note* Diagnosis Urinary tract infection without hematuria, site unspecified- Primary Hypokalemia Hypopotassemia Leukocytosis, unspecified type documented in this encounter [facility]* Diagnosis Hypokalemia Hypopotassemia documented in this encounter [facility]* Diagnosis Anxiety with depression- Primary documented in this encounter [facility]* Diagnosis Essential hypertension, benign- Primary Recurrent UTI (urinary tract infection) Urinary tract infection, site not specified Adjustment disorder with anxious mood Adjustment disorder with anxiety Fatigue, unspecified type Atrial flutter, unspecified type (HCC) 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 [facility] Diagnosis Hypokalemia Hypopotassemia documented in this encounter [facility]* Diagnosis Onset Date Resolution Status Coronary artery disease 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 Dyslipidemia chronic Essential hypertension chron ic First degree heart block chr onic Morbid obesity with BMI of 40.0-44.9, adult chronic DEENA (obstructive sleep apnea) chronic Paroxysmal atrial flutter ch ronic Thrombocytopenia chronic Preoperative cardiovascular examination noneactive [facility] Work Phone: Evaluation note* Diagnosis GERD with esophagitis [facility]* Diagnosis Bacterial sinusitis- Primary Unspecified sinusitis (chronic) Testosterone deficiency Other testicular hypofunction 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 Atrial flutter, unspecified [...] constipation Unspecified constipation documented [facility] this encounter [facility]* Diagnosis Hyperglycemia- Primary Other abnormal glucose documented in this encounter [facility]* Diagnosis Onset Date Resolution Status Coronary artery disease 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 Dyslipidemia chronic Essential hypertension chron ic First degree heart block chr onic Morbid obesity with BMI of 40.0-44.9, adult chronic DEENA (obstructive sleep apnea) chronic Paroxysmal atrial flutter ch ronic Thrombocytopenia chronic Preoperative cardiovascular examination noneactive Pre-syncope acute Coronary artery disease 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 Dyslipidemia chronic Essential hypertension chron ic First degree heart block chr onic Morbid obesity with BMI of 40.0-44.9, adult chronic DEENA (obstructive sleep apnea) chronic Paroxysmal atrial flutter ch ronic Thrombocytopenia chronic [facility] Work Phone: Evaluation note* Diagnosis ADHD (attention deficit hyperactivity disorder), combined type- Primary Attention deficit disorder with hyperactivity [facility] Diagnosis ADHD (attention deficit hyperactivity disorder), combined type- Primary Attention deficit disorder with hyperactivity Need for vaccination Need for prophylactic vaccination and inoculation against unspecified single disease [facility] this encounter [facility]* Diagnosis Hypokalemia Hypopotassemia documented [facility] this encounter [facility]* Diagnosis Chest pain on breathing- Primary Painful respiration Sinobronchitis Unspecified sinusitis (chronic) Hypokalemia Hypopotassemia documented in this encounter [facility]* Diagnosis Chronic cough- Primary Cough Chest pain on breathing Painful respiration documented in this encounter [facility] note* Diagnosis Bronchitis- Primary Bronchitis, not specified as acute or chronic Atrial flutter, unspecified type (HCC) Uncomplicated asthma, unspecified asthma severity, unspecified whether persistent Fatigue, unspecified type documented in this encounter [facility] note* Diagnosis COVID-19- Primary documented in this encounter [facility] note* Diagnosis Pain of left heel Pain in limb Pre-operative examination- Primary Preoperative examination, unspecified Adrenal nodule (HCC) Unspecified disorder of adrenal glands Uncomplicated asthma, unspecified asthma severity, unspecified whether persistent Atrial flutter, unspecified type (HCC) 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 Gastroesophageal reflux disease, [...] deficits Other polyneuropathy documented in this encounter [facility] note* Diagnosis Pre-operative examination- Primary Preoperative examination, unspecified Adrenal nodule (HCC) Unspecified disorder of adrenal glands Uncomplicated asthma, unspecified asthma severity, unspecified whether persistent Atrial flutter, unspecified type (HCC) 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 Gastroesophageal reflux disease, [...] deficits Other polyneuropathy 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- Primary Hyperlipidemia, unspecified [...] quadrant abdominal pain [facility]* Diagnosis Pre-operative examination- Primary Preoperative examination, unspecified Adrenal nodule (HCC) Unspecified disorder of adrenal glands Uncomplicated asthma, unspecified asthma severity, unspecified whether persistent Atrial flutter, unspecified type (HCC) 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 Gastroesophageal reflux disease, [...] quadrant abdominal pain [facility]* Diagnosis Pre-operative examination- Primary Preoperative examination, unspecified Adrenal nodule (HCC) Unspecified disorder of adrenal glands Uncomplicated asthma, unspecified asthma severity, unspecified whether persistent Atrial flutter, unspecified type (HCC) 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 Gastroesophageal reflux disease, [...] Diarrhea, unspecified type [facility] Diagnosis Pain Generalized pain Pre-operative examination- Primary Preoperative examination, unspecified Adrenal nodule (HCC) Unspecified disorder of adrenal glands Uncomplicated asthma, unspecified asthma severity, unspecified whether persistent Atrial flutter, unspecified type (HCC) 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 Gastroesophageal reflux disease, [...] deficits Other polyneuropathy [facility]* Diagnosis Other pulmonary embolism without acute cor pulmonale, unspecified chronicity (HCC) Chest pain, unspecified type Pre-operative examination- Primary Preoperative examination, unspecified Adrenal nodule (HCC) Unspecified disorder of adrenal glands Uncomplicated asthma, unspecified asthma severity, unspecified whether persistent Atrial flutter, unspecified type (HCC) 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 Gastroesophageal reflux disease, [...] deficits Other polyneuropathy [facility] Diagnosis Pain of right heel Pain in limb Pre-operative examination- Primary Preoperative examination, unspecified Adrenal nodule (HCC) Unspecified disorder of adrenal glands Uncomplicated asthma, unspecified asthma severity, unspecified whether persistent Atrial flutter, unspecified type (HCC) 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 Gastroesophageal reflux disease, [...] deficits Other polyneuropathy [facility]* Diagnosis Pre-operative examination- Primary Preoperative examination, unspecified Adrenal nodule (HCC) Unspecified disorder of adrenal glands Uncomplicated asthma, unspecified asthma severity, unspecified whether persistent Atrial flutter, unspecified type (HCC) 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 Gastroesophageal reflux disease, [...] unspecified whether persistent [facility]* Diagnosis Pre-operative examination- Primary Preoperative examination, unspecified Adrenal nodule (HCC) Unspecified disorder of adrenal glands Uncomplicated asthma, unspecified asthma severity, unspecified whether persistent Atrial flutter, unspecified type (HCC) 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 Gastroesophageal reflux disease, [...] Shortness of breath documented in this encounter [facility]* Diagnosis Pre-operative examination- Primary Preoperative examination, unspecified Adrenal nodule (HCC) Unspecified disorder of adrenal glands Uncomplicated asthma, unspecified asthma severity, unspecified whether persistent Atrial flutter, unspecified type (HCC) 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 Gastroesophageal reflux disease, [...] Shortness of breath [facility] Diagnosis Pre-operative examination- Primary Preoperative examination, unspecified Adrenal nodule (HCC) Unspecified disorder of adrenal glands Uncomplicated asthma, unspecified asthma severity, unspecified whether persistent Atrial flutter, unspecified type (HCC) 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 Gastroesophageal reflux disease, [...] Other abnormal glucose [facility] Diagnosis Pre-operative examination- Primary Preoperative examination, unspecified Adrenal nodule (HCC) Unspecified disorder of adrenal glands Uncomplicated asthma, unspecified asthma severity, unspecified whether persistent Atrial flutter, unspecified type (HCC) 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 Gastroesophageal reflux disease, [...] Unspecified sinusitis (chronic) documented in this encounter [facility]* Diagnosis Pre-operative examination- Primary Preoperative examination, unspecified Adrenal nodule (HCC) Unspecified disorder of adrenal glands Uncomplicated asthma, unspecified asthma severity, unspecified whether persistent Atrial flutter, unspecified type (HCC) 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 Gastroesophageal reflux disease, [...] acute or chronic [facility] Diagnosis Pre-operative examination- Primary Preoperative examination, unspecified Adrenal nodule (HCC) Unspecified disorder of adrenal glands Uncomplicated asthma, unspecified asthma severity, unspecified whether persistent Atrial flutter, unspecified type (HCC) 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 Gastroesophageal reflux disease, [...] acute or chronic documented in this encounter [facility]* Diagnosis Pre-operative examination- Primary Preoperative examination, unspecified Adrenal nodule (HCC) Unspecified disorder of adrenal glands Uncomplicated asthma, unspecified asthma severity, unspecified whether persistent Atrial flutter, unspecified type (HCC) 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 Gastroesophageal reflux disease, [...] Shortness of breath [facility] Diagnosis Pre-operative examination- Primary Preoperative examination, unspecified Adrenal nodule (HCC) Unspecified disorder of adrenal glands Uncomplicated asthma, unspecified asthma severity, unspecified whether persistent Atrial flutter, unspecified type (HCC) 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 Gastroesophageal reflux disease, [...] glucose Hypokalemia Hypopotassemia documented in this encounter [facility]* Diagnosis Pre-operative examination- Primary Preoperative examination, unspecified Adrenal nodule (HCC) Unspecified disorder of adrenal glands Uncomplicated asthma, unspecified asthma severity, unspecified whether persistent Atrial flutter, unspecified type (HCC) 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 Gastroesophageal reflux disease, [...] polyneuropathy Hypokalemia Hypopotassemia documented in this encounter [facility]* Diagnosis Pre-operative examination- Primary Preoperative examination, unspecified Adrenal nodule (HCC) Unspecified disorder of adrenal glands Uncomplicated asthma, unspecified asthma severity, unspecified whether persistent Atrial flutter, unspecified type (HCC) 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 Gastroesophageal reflux disease, [...] glucose Hypokalemia Hypopotassemia documented in this encounter [facility]* Diagnosis Pre-operative examination- Primary Preoperative examination, unspecified Adrenal nodule (HCC) Unspecified disorder of adrenal glands Uncomplicated asthma, unspecified asthma severity, unspecified whether persistent Atrial flutter, unspecified type (HCC) 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 Gastroesophageal reflux disease, [...] Bacterial pneumonia, unspecified documented in this encounter [facility]* Diagnosis Pre-operative examination- Primary Preoperative examination, unspecified Adrenal nodule (HCC) Unspecified disorder of adrenal glands Uncomplicated asthma, unspecified asthma severity, unspecified whether persistent Atrial flutter, unspecified type (HCC) 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 Gastroesophageal reflux disease, [...] Essential hypertension, benign documented in this encounter [facility]* Diagnosis Pre-operative examination- Primary Preoperative examination, unspecified Adrenal nodule (HCC) Unspecified disorder of adrenal glands Uncomplicated asthma, unspecified asthma severity, unspecified whether persistent Atrial flutter, unspecified type (HCC) 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 Gastroesophageal reflux disease, [...] deficits Other polyneuropathy 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- Primary Hyperlipidemia, unspecified hyperlipidemia type Atrial flutter, unspecified type (HCC) Sleep apnea, unspecified type Gastric intestinal metaplasia History of pulmonary embolism Personal history of pulmonary embolism History of asthma Personal history of other diseases of respiratory system Fatigue, unspecified type documented in this encounter [facility]* Diagnosis Pre-operative examination- Primary Preoperative examination, unspecified Adrenal nodule (HCC) Unspecified disorder of adrenal glands Uncomplicated asthma, unspecified asthma severity, unspecified whether persistent (HCC) Atrial flutter, unspecified type (HCC) 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 Gastroesophageal reflux disease, [...] Primary Thrombocytopenia, unspecified [facility] Diagnosis Pre-operative examination- Primary Preoperative examination, unspecified Adrenal nodule (HCC) Unspecified disorder of adrenal glands Uncomplicated asthma, unspecified asthma severity, unspecified whether persistent (HCC) Atrial flutter, unspecified type (HCC) 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 Gastroesophageal reflux disease, [...] Essential hypertension, benign [facility] Diagnosis Pre-operative examination- Primary Preoperative examination, unspecified Adrenal nodule (HCC) Unspecified disorder of adrenal glands Uncomplicated asthma, unspecified asthma severity, unspecified whether persistent (HCC) Atrial flutter, unspecified type (HCC) 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 Gastroesophageal reflux disease, [...] Anxiety with depression [facility] Diagnosis Pre-operative examination- Primary Preoperative examination, unspecified Adrenal nodule (HCC) Unspecified disorder of adrenal glands Uncomplicated asthma, unspecified asthma severity, unspecified whether persistent (HCC) Atrial flutter, unspecified type (HCC) 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 Gastroesophageal reflux disease, [...] GERD with esophagitis documented in this encounter [facility]* Diagnosis Pre-operative examination- Primary Preoperative examination, unspecified Adrenal nodule (HCC) Unspecified disorder of adrenal glands Uncomplicated asthma, unspecified asthma severity, unspecified whether persistent (HCC) Atrial flutter, unspecified type (HCC) 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 Gastroesophageal reflux disease, [...] Thrombocytopenia Thrombocytopenia, unspecified documented in this encounter [facility] note* Diagnosis Pre-operative examination- Primary Preoperative examination, unspecified Adrenal nodule (HCC) Unspecified disorder of adrenal glands Uncomplicated asthma, unspecified asthma severity, unspecified whether persistent (HCC) Atrial flutter, unspecified type (HCC) 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 Gastroesophageal reflux disease, [...] breath Acute cough documented [facility] this encounter [facility]* Diagnosis Pre-operative examination- Primary Preoperative examination, unspecified Adrenal nodule (HCC) Unspecified disorder of adrenal glands Uncomplicated asthma, unspecified asthma severity, unspecified whether persistent (HCC) Atrial flutter, unspecified type (HCC) 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 Gastroesophageal reflux disease, [...] 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 residual deficits Other polyneuropathy Rectal bleeding- Primary Hemorrhage of rectum and anus Hyperglycemia Other abnormal glucose Sleep apnea, unspecified type 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 Class 2 obesity with body mass index (BMI) of 38.0 to 38.9 in adult, unspecified obesity type, unspecified whether serious comorbidity present Attention deficit disorder, unspecified type documented in this encounter [facility] note* Diagnosis Pre-operative examination- Primary Preoperative examination, unspecified Adrenal nodule (HCC) Unspecified disorder of adrenal glands Uncomplicated asthma, unspecified asthma severity, unspecified whether persistent (HCC) Atrial flutter, unspecified type (HCC) 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 Gastroesophageal reflux disease, [...] polyneuropathy Hypokalemia Hypopotassemia documented in this encounter [facility] note* Diagnosis Pre-operative examination- Primary Preoperative examination, unspecified Adrenal nodule (HCC) Unspecified disorder of adrenal glands Uncomplicated asthma, unspecified asthma severity, unspecified whether persistent (HCC) Atrial flutter, unspecified type (HCC) 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 Gastroesophageal reflux disease, [...] 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 residual deficits Other polyneuropathy Rectal bleeding Hemorrhage of rectum and anus [facility] Author Lucy Partida [facility] December 15, 2022 10:52pm Note Date/Time December 15, 2022 10:[address] [place] [address] Medical Records Department [address] [place] [id number] H&P Exam - Hospitalist 12/15/22 2210 MR#: [id number] Acct: [id number] Name: LAZARO GARZON Rep #:[id number] : 1955 67 From: Lucy Partida MD PCP: Dr. Jagjit Cheema MD Status:ADM I N Location: [place] [address] HPI - General General Date of Admission: 12/15/22 Date of Service: 12/15/22 Chief Complaint: Recent UTI Dx, ongoing fevers, chills. HPI Narrative The patient is a 67 y/o M w/ PMHx: Hx DVT/PE, PAF/Flutter, Chronic thrombocytopenia, DEENA on CPAP q HS, Former tobacco use, CAD s/p PCI, HTN, HLD, GERD, Fibromyalgia, BPH, Hx TIA, Obesity who presents to the [facility] ED on 12/15/22 with history of [...] Zofran 4 mg IV x1. [facility] Medical History Abnormal myocardial perfusion study Abnormal stress test Acute pyelonephritis Atherosclerotic heart disease of seminole coronary artery without angina pectoris BPH (benign prostatic hyperplasia) Claudication Confusion Dyspnea on exertion Essential hypertension Fibromyalgia GERD (gastroesophageal reflux disease) H/O percutaneous transluminal coronary angioplasty History of shingles HTN (hypertension) Obesity DEENA (obstructive sleep apnea) Prostate enlargement Pulmonary embolism Pure hypercholesterolemia Rectal bleeding Testosterone deficiency TIA (transient ischemic attack) Unstable angina UTI (urinary tract infection) Home Medications multivitamin,[id number]-[id number] 27 mg-0.4 mg tablet 1 tab PO [...] 90.2 H, Lymph % (Auto) 4.4 L, [place] % (Auto) 4.0, Eos % (Auto) 0.7, [...] Hx TIA, Obesity who presents to the [facility] ED on 12/15/22 with history of [...] 08/2012, most recent repeat catheterization 2017 demonstrating seminole multivessel coronary disease and a patent LAD [...] 75 minutes. Charges/Coding Visit Charges Inpatient E&M: 92996 Init Hosp L3 12/15/22 2252 <Electronically signed by Lucy Partida MD> Cosigner Signature (if applicable): CC: Dr. Lucy Partida MD; Dr. Jagjit Cheema MD~ Signed [facility] Work Phone: Hospital Discharge instructionsAmbulatory Orders* Nutrition Referral Location: None Selected [facility] Work Phone: Reason for referral (narrative)* Diagnostic Procedure Only (Urgent) - Closed Specialty Diagnoses / Procedures Referred By Contac t Referred To Contact XR IMAGING Diagnoses Pain of left heel Procedures XR FOOT GENERAL 3V AP/LAT/OBL LEFT RADEX FOOT COMPLETE MINIMUM 3 VIEWS Anabelle Tom APRN.BIOSOLIDS MANAGEMENT TECHNICIAN [address] [place] [address] [place] [address] Referral ID Status Reason Start Date Expiration Date V isits Requested Visits Authorized [id number] Closed Auto-Generated Referral Patient Cleared - INN Insurance Found 04/03/2023 05/02/2024 1 1 [facility] for referral (narrative)* Diagnostic Procedure Only (Routine) - Closed Specialty Diagnoses / Procedures Referred By Contac t Referred To Contact XR IMAGING Diagnoses Pain Procedures XR FOOT GENERAL 3V AP/LAT/OBL RIGHT RADEX FOOT COMPLETE MINIMUM 3 VIEWS Oliva Gutierrez PA-C [address] [place] [address] [place] [address] Referral ID Status Reason Start Date Expiration Date V isits Requested Visits Authorized [id number] Closed Auto-Generate d Referral 09/08/2021 10/08/2022 1 1 * Diagnostic Procedure Only (Routine) - Closed Specialty Diagnoses / Procedures Referred By Contac t Referred To Contact XR IMAGING Diagnoses Pain Procedures XR ANKLE GENERAL 3V AP/LAT/OBL RIGHT RADEX ANKLE COMPLETE MINIMUM 3 VIEWS Oliva Gutierrez PA-C [address] [place] [address] [place] [address] Referral ID Status Reason Start Date Expiration Date V isits Requested Visits Authorized [id number] Closed Auto-Generate d Referral 09/08/2021 10/08/2022 1 1 [facility] for referral (narrative)No reason for referral information [facility]WSelect [facility] Work Phone: Remnys for visit Narrative* Diagnostic Procedure Only (Urgent) - Closed Specialty Diagnoses / Procedures Referred By Contac t Referred To Contact XR IMAGING Diagnoses Pain of left heel Procedures XR FOOT GENERAL 3V AP/LAT/OBL LEFT RADEX FOOT COMPLETE MINIMUM 3 VIEWS Anabelle Tom APRN.CNP [address] [place] [address] [place] [address] Referral ID Status Reason Start Date Expiration Date V isits Requested Visits Authorized [id number] Closed Auto-Generated Referral Patient Cleared - INN Insurance Found 04/03/2023 05/02/2024 1 1 [facility] Summary Purpose Family History Relationship Condition Age at Onset Recorded Date/T shukri mother Coronary artery disease Unknown Hypertension Unknown History of coronary artery bypass surgery Unknown father Hypertension Unknown Myocardial infarction Unknown grandfather Myocardial infarction Unknown grandmother Malignant neoplasm Unknown grandfather Coronary artery disease Unknown Advance Directives Documents on File Type Date Recorded Patient Coffee Weigher Expl anation Advance Directive(s) 07/20/2016 7:44 AM Advance Directive(s) 05/10/2016 5:01 PM Advance Directive(s) 06/05/2012 1:03 PM Advance Directive Response Recorded Date/ Time Advance Directives No April 5:24pm Living Will Yes February 29, 2020 1:43am Power of National Account Representative Yes February 1:43am Documents on File Type Date Recorded Patient Coffee Weigher Expl anation Advance Directive(s) 06/05/2012 1:03 PM Advance Directive Response Recorded Date/ Time Name of Medical Power of National Account Representative JACQUES MENDEZ R, February 12, 2022 11:34am Advance Directives No April 5:24pm Living Will Yes February 12 11:34am Power of National Account Representative Yes February 12 11:34am Advance Directive Response Recorded Date/ Time Name of Medical Power of National Account Representative JACQUES MENDEZ R, February 12, 2022 10:34am Advance Directives No April 4:24pm Living Will Yes February 12 10:34am Power of National Account Representative Yes February 12 10:34am Advance Directive Response Recorded Date/ Time Name of Medical Power of National Account Representative JACQUES MENDEZ R, February 12, 2022 10:34am Name of Medical Power of National Account Representative Karin Garzon May 07, 2022 11:33am Advance Directives No April 4:24pm Living Will Yes May 07 11:33am Power of National Account Representative Yes May 07, 2022 11:33am Advance Directive Response Recorded Date/ Time Name of Medical Power of National Account Representative Karin Garzon May 07, 2022 11:33am Advance Directives No April 4:24pm Living Will Yes May 07, 11:33am Power of National Account Representative Yes May 07, 2022 11:33am Advance Directive Response Recorded Date/ Time Advance Directives No April 5:24pm Living Will No December 15, 2022 7:07pm Power of National Account Representative No December 15 7:07pm Advance Directive Response Recorded Date/ Time Advance Directives No April 5:24pm Living Will No December 15, 2022 11:33pm Power of National Account Representative No December 15 11:33pm Advance Directive Response Recorded Date/ Time Advance Directives No April 4:24pm Living Will No December 15, 2022 10:33pm Power of National Account Representative No December 15 10:33pm Documents on File Type Date Recorded Patient Coffee Weigher Expl anation Advance Directive(s) 06/05/2012 1:03 PM Advance Directive Response Recorded Date/ Time Living Will No December 15, 2022 11:33pm Do you have a Healthcare Power of National Account Representative? No December 15, 2022 11:33pm Do you have a Healthcare Power of National Account Representative? Yes October 28, 2024 10:55am Advance Directives No January 14 10:22am Advance Directive Response Recorded Date/ Time Living Will No December 15, 2022 11:33pm Do you have a Healthcare Power of National Account Representative? No December 15, 2022 11:33pm Do you have a Healthcare Power of National Account Representative? Yes October 28, 2024 10:55am Do you have a Healthcare Power of National Account Representative? Yes November 20, 2024 10:51am Name of Medical Power of National Account Representative Lucila Dey November 20, 2024 10:51am Advance Directives No January 14 10:22am Chief Complaint and Reason for Visit Chief Complaint Admit Date 6 M FU August 16, 2024 10:25am GI Bleed October 28, 2024 9:35a m sob November 20, 2024 10:25 am Reason for Visit Admit Date Atherosclerotic heart diseas e of seminole coronary artery without angina pectoris August 16, 2024 10:25am Atrial flutter August 16, 2024 10:25am Essential hypertension August 16 10:25am Pure hypercholesterolemia August 16, 2024 10:25am Chief Complaint Cervical spine 6 M FU Reason for Visit Fatigue Atherosclerotic heart disease of seminole coronary artery without angina pectoris Essential hypertension Presence of stent in coronary artery Pure hypercholesterolemia Testosterone deficiency Chief Complaint Cervical spine 6 M FU 6 wk FU Reason for Visit Fatigue Atherosclerotic heart disease of seminole coronary artery without angina pectoris Essential hypertension Presence of stent in coronary artery Pure hypercholesterolemia Testosterone deficiency Fatigue Atherosclerotic heart disease of seminole coronary artery without angina pectoris Essential hypertension Presence of stent in coronary artery Pure hypercholesterolemia Testosterone deficiency Chief Complaint 6 M FU 6 wk FU HEAD Reason for Visit Fatigue Atherosclerotic heart disease of seminole coronary artery without angina pectoris Essential hypertension Presence of stent in coronary artery Pure hypercholesterolemia Testosterone deficiency Fatigue Atherosclerotic heart disease of seminole coronary artery without angina pectoris Essential hypertension Presence of stent in coronary artery Pure hypercholesterolemia Testosterone deficiency Chief Complaint HEAD TWO ORDERING LAURENT/INT LABS AND ORDER PSA Chief Complaint HEAD TWO ORDERING LAURENT/INT LABS AND ORDER PSA 6 M FU Reason for Visit Atrial flutter Dyspnea Atherosclerotic heart disease of seminole coronary artery without angina pectoris Essential hypertension Presence of stent in coronary artery Pure hypercholesterolemia Chief Complaint HEAD TWO ORDERING DEYSIINT LABS AND ORDER PSA 6 M FU Chest pain Reason for Visit Atrial flutter Dyspnea Atherosclerotic heart disease of seminole coronary artery without angina pectoris Essential hypertension Presence of stent in coronary artery Pure hypercholesterolemia Chief Complaint HEAD TWO ORDERING LAURENT/INT LABS AND ORDER PSA 6 M FU Chest pain DYSPNEA AFIB; CAD Reason for Visit Atrial flutter Dyspnea Atherosclerotic heart disease of seminole coronary artery without angina pectoris Essential hypertension Presence of stent in coronary artery Pure hypercholesterolemia Chief Complaint TWO ORDERING LAURENT/IN T LABS AND ORDER PSA 6 M FU Chest pain DYSPNEA AFIB; CAD 1 M FU E ORDER Reason for Visit Atrial flutter Dyspnea Atherosclerotic heart disease of seminole coronary artery without angina pectoris Essential hypertension Presence of stent in coronary artery Pure hypercholesterolemia Atrial flutter Dyspnea Atherosclerotic heart disease of seminole coronary artery without angina pectoris Essential hypertension Presence of stent in coronary artery Pure hypercholesterolemia Chief Complaint TWO ORDERING DEYSIIN T LABS AND ORDER PSA 6 M FU Chest pain DYSPNEA AFIB; CAD 1 M FU E ORDER UPDATE H&P Atrial fibrillation AFIB Atrial fibrillation Atrial fibrillation Reason for Visit Atrial flutter Dyspnea Atherosclerotic heart disease of [place] coronary artery without angina pectoris Essential hypertension Presence of stent in coronary artery Pure hypercholesterolemia Atrial flutter Dyspnea Atherosclerotic heart disease of [place] coronary artery without angina pectoris Essential hypertension [...] GI Bleed October 28, 2024 9:35a m Chief Complaint Admit Date 6 M FU August 16, 2024 10:25am GI Bleed October 28, 2024 9:35a m sob November 20, 2024 10:25 am CP WITH CAD SEEN IN ER November 21, 2024 6: 26am CP WITH CAD SEEN IN ER November 21, 2024 2: 14pm PER MH--SEE NOTES November 28, 2024 9:57 am Reason for Visit Admit Date Atherosclerotic heart diseas e of [place] coronary artery without angina pectoris August 16, 2024 10:25am Atrial flutter August 16, 2024 10:25am Essential hypertension August 16 10:25am Pure hypercholesterolemia August 16, 2024 10:25am Atherosclerotic heart diseas e of [place] coronary artery without angina pectoris November 28, 2024 9:57am Atrial flutter November 28, 2024 9:57 am Essential hypertension November 28, 2024 9 :57am Obesity November 28, 2024 9:57 am DEENA (obstructive sleep apnea) November 28, 2024 9:57am Pure hypercholesterolemia November 28 9:57am Health Concerns Infection Onset Date Last Indicated [...] IVCON CT ANGIOGRAPHY CHEST W/CONTRAST/NONCONTRAST Susan Kerr, WET PLANT OPERATOR.BIOSOLIDS MANAGEMENT TECHNICIAN [address] [place] [address] [place] [address] Referral ID Status Reason Start Date Expiration Date Visits Requested Visits Authorized [id number] Pending Review Auto-Generat ed Referral 12/13/2023 01/11/2025 1 1 Specialty Diagnoses / Procedures Referred By Contac t Referred To Contact CT IMAGING Diagnoses Chest pain on breathing Procedures CT CHEST W IVCON PE DIAGNOSTIC COMPUTED TOMOGRAPHY THORAX W/CONTRAST Susan Kerr, WET PLANT OPERATOR.BIOSOLIDS MANAGEMENT TECHNICIAN [address] [place] [address] [place] [address] Referral ID Status Reason Start Date Expiration Date Visits Requested Visits Authorized [id number] Authorized Financial Clearance Not Required 12/13/2023 01/11/2025 1 1 Specialty Diagnoses / Procedures Referred By Contac t Referred To Contact CT IMAGING Diagnoses Left lower quadrant abdominal pain Procedures CT ABD/PEL W IVCON CT ABD & PELVIS W/CONTRAST Jagjit Cheema MD [address] [place] [address] [place] [id number] Referral ID Status Reason Start Date Expiration Date V isits Requested Visits Authorized [id number] Closed Financial Clearance Not Required 03/08/2024 04/07/2025 2 2 Specialty Diagnoses / Procedures Referred By Contac t Referred To Contact CT IMAGING Diagnoses Diarrhea, unspecified type Left lower quadrant abdominal pain Procedures CT ABD/PEL W IVCON CT ABD & PELVIS W/CONTRAST Jagjit Cheema MD [address] [place] [address] [place] [address] Referral ID Status Reason Start Date Expiration Date Visits Requested Visits Authorized [id number] New Request Auto-Generat ed Referral 03/08/2024 04/07/2025 1 1 Additional Source Comments (unrecognized sect ion and content) No Status Records FoundNo Status Records FoundNo Status Records FoundNo Status Records FoundNo Status Records FoundNo Status Records FoundNo Status Records Found INFORMATION SOURCE (unrecogn ized section and content) DATE CREATED AUTHOR 12/05/2017 [facility] DATE CREATED AUTHOR AUTHOR'S ORGANIZ ATION 08/29/2019 [facility] DATE CREATED AUTHOR AUTHOR'S ORGANIZ ATION 08/07/2021 [facility] DATE CREATED AUTHOR AUTHOR'S ORGANIZ ATION 07/20/2023 [facility] DATE CREATED AUTHOR AUTHOR'S ORGANIZ ATION 03/11/2024 [facility] DATE CREATED AUTHOR AUTHOR'S ORGANIZ ATION 01/03/2025 [facility] DATE CREATED AUTHOR AUTHOR'S ORGANIZ ATION 01/09/2025 [facility] Source Comments (unrecognize d section and content) In the event this informatio n is protected by the Federal Confidentiality of Alcohol and Drug Abuse Patient Records regulations: The Federal rules restrict any use of the information to criminally investigate or prosecute any alcohol or drug abuse patient.[facility] the event this information is protected by the Federal Confidentiality of Alcohol and Drug Abuse Patient Records regulations: The Federal rules restrict any use of the information to criminally investigate or prosecute any alcohol or drug abuse patient.[facility] HospitalIn the event this information is protected by the Federal Confidentiality of Alcohol and Drug Abuse Patient Records regulations: The Federal rules restrict any use of the information to criminally investigate or prosecute any alcohol or drug abuse patient.[facility] HospitalIn the event this information is protected by the Federal Confidentiality of Alcohol and Drug Abuse Patient Records regulations: The Federal rules restrict any use of the information to criminally investigate or prosecute any alcohol or drug abuse patient.[facility] HospitalIn the event this information is protected by the Federal Confidentiality of Alcohol and Drug Abuse Patient Records regulations: The Federal rules restrict any use of the information to criminally investigate or prosecute any alcohol or drug abuse patient.[facility] HospitalIn the event this information is protected by the Federal Confidentiality of Alcohol and Drug Abuse Patient Records regulations: The Federal rules restrict any use of the information to criminally investigate or prosecute any alcohol or drug abuse patient.[facility] HospitalIn the event this information is protected by the Federal Confidentiality of Alcohol and Drug Abuse Patient Records regulations: The Federal rules restrict any use of the information to criminally investigate or prosecute any alcohol or drug abuse patient.[facility] HospitalIn the event this information is protected by the Federal Confidentiality of Alcohol and Drug Abuse Patient Records regulations: The Federal rules restrict any use of the information to criminally investigate or prosecute any alcohol or drug abuse patient.[facility] HospitalIn the event this information is protected by the Federal Confidentiality of Alcohol and Drug Abuse Patient Records regulations: The Federal rules restrict any use of the information to criminally investigate or prosecute any alcohol or drug abuse patient.[facility] HospitalIn the event this information is protected by the Federal Confidentiality of Alcohol and Drug Abuse Patient Records regulations: The Federal rules restrict any use of the information to criminally investigate or prosecute any alcohol or drug abuse patient.[facility] HospitalIn the event this information is protected by the Federal Confidentiality of Alcohol and Drug Abuse Patient Records regulations: The Federal rules restrict any use of the information to criminally investigate or prosecute any alcohol or drug abuse patient.[facility] HospitalIn the event this information is protected by the Federal Confidentiality of Alcohol and Drug Abuse Patient Records regulations: The Federal rules restrict any use of the information to criminally investigate or prosecute any alcohol or drug abuse patient.[facility] HospitalIn the event this information is protected by the Federal Confidentiality of Alcohol and Drug Abuse Patient Records regulations: The Federal rules restrict any use of the information to criminally investigate or prosecute any alcohol or drug abuse patient.[facility] HospitalIn the event this information is protected by the Federal Confidentiality of Alcohol and Drug Abuse Patient Records regulations: The Federal rules restrict any use of the information to criminally investigate or prosecute any alcohol or drug abuse patient.[facility] HospitalIn the event this information is protected by the Federal Confidentiality of Alcohol and Drug Abuse Patient Records regulations: The Federal rules restrict any use of the information to criminally investigate or prosecute any alcohol or drug abuse patient.[facility] HospitalIn the event this information is protected by the Federal Confidentiality of Alcohol and Drug Abuse Patient Records regulations: The Federal rules restrict any use of the information to criminally investigate or prosecute any alcohol or drug abuse patient.[facility] HospitalIn the event this information is protected by the Federal Confidentiality of Alcohol and Drug Abuse Patient Records regulations: The Federal rules restrict any use of the information to criminally investigate or prosecute any alcohol or drug abuse patient.[facility] HospitalIn the event this information is protected by the Federal Confidentiality of Alcohol and Drug Abuse Patient Records regulations: The Federal rules restrict any use of the information to criminally investigate or prosecute any alcohol or drug abuse patient.[facility] HospitalIn the event this information is protected by the Federal Confidentiality of Alcohol and Drug Abuse Patient Records regulations: The Federal rules restrict any use of the information to criminally investigate or prosecute any alcohol or drug abuse patient.[facility] HospitalIn the event this information is protected by the Federal Confidentiality of Alcohol and Drug Abuse Patient Records regulations: The Federal rules restrict any use of the information to criminally investigate or prosecute any alcohol or drug abuse patient.[facility] HospitalIn the event this information is protected by the Federal Confidentiality of Alcohol and Drug Abuse Patient Records regulations: The Federal rules restrict any use of the information to criminally investigate or prosecute any alcohol or drug abuse patient.[facility] HospitalIn the event this information is protected by the Federal Confidentiality of Alcohol and Drug Abuse Patient Records regulations: The Federal rules restrict any use of the information to criminally investigate or prosecute any alcohol or drug abuse patient.[facility] HospitalIn the event this information is protected by the Federal Confidentiality of Alcohol and Drug Abuse Patient Records regulations: The Federal rules restrict any use of the information to criminally investigate or prosecute any alcohol or drug abuse patient.[facility] HospitalIn the event this information is protected by the Federal Confidentiality of Alcohol and Drug Abuse Patient Records regulations: The Federal rules restrict any use of the information to criminally investigate or prosecute any alcohol or drug abuse patient.[facility] HospitalIn the event this information is protected by the Federal Confidentiality of Alcohol and Drug Abuse Patient Records regulations: The Federal rules restrict any use of the information to criminally investigate or prosecute any alcohol or drug abuse patient.[facility] HospitalIn the event this information is protected by the Federal Confidentiality of Alcohol and Drug Abuse Patient Records regulations: The Federal rules restrict any use of the information to criminally investigate or prosecute any alcohol or drug abuse patient.[facility] HospitalIn the event this information is protected by the Federal Confidentiality of Alcohol and Drug Abuse Patient Records regulations: The Federal rules restrict any use of the information to criminally investigate or prosecute any alcohol or drug abuse patient.[facility] HospitalIn the event this information is protected by the Federal Confidentiality of Alcohol and Drug Abuse Patient Records regulations: The Federal rules restrict any use of the information to criminally investigate or prosecute any alcohol or drug abuse patient.[facility] HospitalIn the event this information is protected by the Federal Confidentiality of Alcohol and Drug Abuse Patient Records regulations: The Federal rules restrict any use of the information to criminally investigate or prosecute any alcohol or drug abuse patient.[facility] HospitalIn the event this information is protected by the Federal Confidentiality of Alcohol and Drug Abuse Patient Records regulations: The Federal rules restrict any use of the information to criminally investigate or prosecute any alcohol or drug abuse patient.[facility] HospitalIn the event this information is protected by the Federal Confidentiality of Alcohol and Drug Abuse Patient Records regulations: The Federal rules restrict any use of the information to criminally investigate or prosecute any alcohol or drug abuse patient.[facility] HospitalIn the event this information is protected by the Federal Confidentiality of Alcohol and Drug Abuse Patient Records regulations: The Federal rules restrict any use of the information to criminally investigate or prosecute any alcohol or drug abuse patient.[facility] HospitalIn the event this information is protected by the Federal Confidentiality of Alcohol and Drug Abuse Patient Records regulations: The Federal rules restrict any use of the information to criminally investigate or prosecute any alcohol or drug abuse patient.[facility] HospitalIn the event this information is protected by the Federal Confidentiality of Alcohol and Drug Abuse Patient Records regulations: The Federal rules restrict any use of the information to criminally investigate or prosecute any alcohol or drug abuse patient.[facility] HospitalIn the event this information is protected by the Federal Confidentiality of Alcohol and Drug Abuse Patient Records regulations: The Federal rules restrict any use of the information to criminally investigate or prosecute any alcohol or drug abuse patient.[facility] HospitalIn the event this information is protected by the Federal Confidentiality of Alcohol and Drug Abuse Patient Records regulations: The Federal rules restrict any use of the information to criminally investigate or prosecute any alcohol or drug abuse patient.[facility] HospitalIn the event this information is protected by the Federal Confidentiality of Alcohol and Drug Abuse Patient Records regulations: The Federal rules restrict any use of the information to criminally investigate or prosecute any alcohol or drug abuse patient.[facility] HospitalIn the event this information is protected by the Federal Confidentiality of Alcohol and Drug Abuse Patient Records regulations: The Federal rules restrict any use of the information to criminally investigate or prosecute any alcohol or drug abuse patient.[facility] HospitalIn the event this information is protected by the Federal Confidentiality of Alcohol and Drug Abuse Patient Records regulations: The Federal rules restrict any use of the information to criminally investigate or prosecute any alcohol or drug abuse patient.[facility] HospitalIn the event this information is protected by the Federal Confidentiality of Alcohol and Drug Abuse Patient Records regulations: The Federal rules restrict any use of the information to criminally investigate or prosecute any alcohol or drug abuse patient.[facility] HospitalIn the event this information is protected by the Federal Confidentiality of Alcohol and Drug Abuse Patient Records regulations: The Federal rules restrict any use of the information to criminally investigate or prosecute any alcohol or drug abuse patient.[facility] HospitalIn the event this information is protected by the Federal Confidentiality of Alcohol and Drug Abuse Patient Records regulations: The Federal rules restrict any use of the information to criminally investigate or prosecute any alcohol or drug abuse patient.[facility] HospitalIn the event this information is protected by the Federal Confidentiality of Alcohol and Drug Abuse Patient Records regulations: The Federal rules restrict any use of the information to criminally investigate or prosecute any alcohol or drug abuse patient.[facility] HospitalIn the event this information is protected by the Federal Confidentiality of Alcohol and Drug Abuse Patient Records regulations: The Federal rules restrict any use of the information to criminally investigate or prosecute any alcohol or drug abuse patient.[facility] HospitalIn the event this information is protected by the Federal Confidentiality of Alcohol and Drug Abuse Patient Records regulations: The Federal rules restrict any use of the information to criminally investigate or prosecute any alcohol or drug abuse patient.[facility] HospitalIn the event this information is protected by the Federal Confidentiality of Alcohol and Drug Abuse Patient Records regulations: The Federal rules restrict any use of the information to criminally investigate or prosecute any alcohol or drug abuse patient.[facility] HospitalIn the event this information is protected by the Federal Confidentiality of Alcohol and Drug Abuse Patient Records regulations: The Federal rules restrict any use of the information to criminally investigate or prosecute any alcohol or drug abuse patient.[facility] HospitalIn the event this information is protected by the Federal Confidentiality of Alcohol and Drug Abuse Patient Records regulations: The Federal rules restrict any use of the information to criminally investigate or prosecute any alcohol or drug abuse patient.[facility] HospitalIn the event this information is protected by the Federal Confidentiality of Alcohol and Drug Abuse Patient Records regulations: The Federal rules restrict any use of the information to criminally investigate or prosecute any alcohol or drug abuse patient.[facility] HospitalIn the event this information is protected by the Federal Confidentiality of Alcohol and Drug Abuse Patient Records regulations: The Federal rules restrict any use of the information to criminally investigate or prosecute any alcohol or drug abuse patient.[facility] HospitalIn the event this information is protected by the Federal Confidentiality of Alcohol and Drug Abuse Patient Records regulations: The Federal rules restrict any use of the information to criminally investigate or prosecute any alcohol or drug abuse patient.[facility] HospitalIn the event this information is protected by the Federal Confidentiality of Alcohol and Drug Abuse Patient Records regulations: The Federal rules restrict any use of the information to criminally investigate or prosecute any alcohol or drug abuse patient.[facility] HospitalIn the event this information is protected by the Federal Confidentiality of Alcohol and Drug Abuse Patient Records regulations: The Federal rules restrict any use of the information to criminally investigate or prosecute any alcohol or drug abuse patient.[facility] HospitalIn the event this information is protected by the Federal Confidentiality of Alcohol and Drug Abuse Patient Records regulations: The Federal rules restrict any use of the information to criminally investigate or prosecute any alcohol or drug abuse patient.[facility] HospitalIn the event this information is protected by the Federal Confidentiality of Alcohol and Drug Abuse Patient Records regulations: The Federal rules restrict any use of the information to criminally investigate or prosecute any alcohol or drug abuse patient.[facility] HospitalIn the event this information is protected by the Federal Confidentiality of Alcohol and Drug Abuse Patient Records regulations: The Federal rules restrict any use of the information to criminally investigate or prosecute any alcohol or drug abuse patient.[facility] HospitalIn the event this information is protected by the Federal Confidentiality of Alcohol and Drug Abuse Patient Records regulations: The Federal rules restrict any use of the information to criminally investigate or prosecute any alcohol or drug abuse patient.[facility] HospitalIn the event this information is protected by the Federal Confidentiality of Alcohol and Drug Abuse Patient Records regulations: The Federal rules restrict any use of the information to criminally investigate or prosecute any alcohol or drug abuse patient.[facility] HospitalIn the event this information is protected by the Federal Confidentiality of Alcohol and Drug Abuse Patient Records regulations: The Federal rules restrict any use of the information to criminally investigate or prosecute any alcohol or drug abuse patient.[facility] HospitalIn the event this information is protected by the Federal Confidentiality of Alcohol and Drug Abuse Patient Records regulations: The Federal rules restrict any use of the information to criminally investigate or prosecute any alcohol or drug abuse patient.[facility] HospitalIn the event this information is protected by the Federal Confidentiality of Alcohol and Drug Abuse Patient Records regulations: The Federal rules restrict any use of the information to criminally investigate or prosecute any alcohol or drug abuse patient.[facility] HospitalIn the event this information is protected by the Federal Confidentiality of Alcohol and Drug Abuse Patient Records regulations: The Federal rules restrict any use of the information to criminally investigate or prosecute any alcohol or drug abuse patient.[facility] HospitalIn the event this information is protected by the Federal Confidentiality of Alcohol and Drug Abuse Patient Records regulations: The Federal rules restrict any use of the information to criminally investigate or prosecute any alcohol or drug abuse patient.[facility] HospitalIn the event this information is protected by the Federal Confidentiality of Alcohol and Drug Abuse Patient Records regulations: The Federal rules restrict any use of the information to criminally investigate or prosecute any alcohol or drug abuse patient.[facility] HospitalIn the event this information is protected by the Federal Confidentiality of Alcohol and Drug Abuse Patient Records regulations: The Federal rules restrict any use of the information to criminally investigate or prosecute any alcohol or drug abuse patient.[facility] HospitalIn the event this information is protected by the Federal Confidentiality of Alcohol and Drug Abuse Patient Records regulations: The Federal rules restrict any use of the information to criminally investigate or prosecute any alcohol or drug abuse patient.[facility] HospitalIn the event this information is protected by the Federal Confidentiality of Alcohol and Drug Abuse Patient Records regulations: The Federal rules restrict any use of the information to criminally investigate or prosecute any alcohol or drug abuse patient.[facility] HospitalIn the event this information is protected by the Federal Confidentiality of Alcohol and Drug Abuse Patient Records regulations: The Federal rules restrict any use of the information to criminally investigate or prosecute any alcohol or drug abuse patient.[facility] HospitalIn the event this information is protected by the Federal Confidentiality of Alcohol and Drug Abuse Patient Records regulations: The Federal rules restrict any use of the information to criminally investigate or prosecute any alcohol or drug abuse patient.[facility] HospitalIn the event this information is protected by the Federal Confidentiality of Alcohol and Drug Abuse Patient Records regulations: The Federal rules restrict any use of the information to criminally investigate or prosecute any alcohol or drug abuse patient.[place] [facility] HospitalIn the event this information is protected by the Federal Confidentiality of Alcohol and Drug Abuse Patient Records regulations: The Federal rules restrict any use of the information to criminally investigate or prosecute any alcohol or drug abuse patient.[place] [facility] HospitalIn the event this information is protected by the Federal Confidentiality of Alcohol and Drug Abuse Patient Records regulations: The Federal rules restrict any use of the information to criminally investigate or prosecute any alcohol or drug abuse patient.[place] [facility] HospitalIn the event this information is protected by the Federal Confidentiality of Alcohol and Drug Abuse Patient Records regulations: The Federal rules restrict any use of the information to criminally investigate or prosecute any alcohol or drug abuse patient.[place] [facility] HospitalIn the event this information is protected by the Federal Confidentiality of Alcohol and Drug Abuse Patient Records regulations: The Federal rules restrict any use of the information to criminally investigate or prosecute any alcohol or drug abuse patient.[place] [facility] HospitalIn the event this information is protected by the Federal Confidentiality of Alcohol and Drug Abuse Patient Records regulations: The Federal rules restrict any use of the information to criminally investigate or prosecute any alcohol or drug abuse patient.[place] [facility] HospitalIn the event this information is protected by the Federal Confidentiality of Alcohol and Drug Abuse Patient Records regulations: The Federal rules restrict any use of the information to criminally investigate or prosecute any alcohol or drug abuse patient.[place] [facility] HospitalIn the event this information is protected by the Federal Confidentiality of Alcohol and Drug Abuse Patient Records regulations: The Federal rules restrict any use of the information to criminally investigate or prosecute any alcohol or drug abuse patient.[place] [facility] HospitalIn the event this information is protected by the Federal Confidentiality of Alcohol and Drug Abuse Patient Records regulations: The Federal rules restrict any use of the information to criminally investigate or prosecute any alcohol or drug abuse patient.[place] [facility] HospitalIn the event this information is protected by the Federal Confidentiality of Alcohol and Drug Abuse Patient Records regulations: The Federal rules restrict any use of the information to criminally investigate or prosecute any alcohol or drug abuse patient.[place] [facility] HospitalIn the event this information is protected by the Federal Confidentiality of Alcohol and Drug Abuse Patient Records regulations: The Federal rules restrict any use of the information to criminally investigate or prosecute any alcohol or drug abuse patient.[place] [facility] HospitalIn the event this information is protected by the Federal Confidentiality of Alcohol and Drug Abuse Patient Records regulations: The Federal rules restrict any use of the information to criminally investigate or prosecute any alcohol or drug abuse patient.[place] [facility] HospitalIn the event this information is protected by the Federal Confidentiality of Alcohol and Drug Abuse Patient Records regulations: The Federal rules restrict any use of the information to criminally investigate or prosecute any alcohol or drug abuse patient.[place] [facility] HospitalIn the event this information is protected by the Federal Confidentiality of Alcohol and Drug Abuse Patient Records regulations: The Federal rules restrict any use of the information to criminally investigate or prosecute any alcohol or drug abuse patient.[place] [facility] HospitalIn the event this information is protected by the Federal Confidentiality of Alcohol and Drug Abuse Patient Records regulations: The Federal rules restrict any use of the information to criminally investigate or prosecute any alcohol or drug abuse patient.[place] [facility] HospitalIn the event this information is protected by the Federal Confidentiality of Alcohol and Drug Abuse Patient Records regulations: The Federal rules restrict any use of the information to criminally investigate or prosecute any alcohol or drug abuse patient.[facility] Reason for Visit (unrecogniz ed section [...] & PELVIS W/CONTRAST Jagjit Cheema MD [address] [place] [address] [place] [address] Referral ID Status Reason Start Date Expiration Date V isits Requested Visits Authorized [id number] Closed Financial Clearance Not Required 03/08/2024 04/07/2025 2 2 Reason Comments Radio Gen RMP Specialty Diagnoses / Procedures Referred By Contac t Referred To Contact XR IMAGING Diagnoses Pain Procedures XR FOOT GENERAL 3V AP/LAT/OBL RIGHT RADEX FOOT COMPLETE MINIMUM 3 VIEWS Oliva Gutierrez PA-C [address] [place] [address] [place] [id number] Referral ID Status Reason Start Date Expiration Date V isits Requested Visits Authorized [id number] Closed Auto-Generate d Referral 09/08/2021 10/08/2022 1 [...] fa tigue, dry cough, headache; no fever Reason Comments Pharmacy Call Reason Comments Follow Up Feeling better from pneumonia. Also wants to talk about ADD meds. Reason Onset Date Comments Refill Request 12/30/2024 Reason Comments New Patient Colonoscopy consult - rectal bleeding Specialty Diagnoses / Procedures Referred By Contac t Referred To Contact General Surgery Diagnoses Rectal bleeding Procedures CONSULT TO GENERAL SURGERY OFFICE/OUTPATIENT NEW HIGH MDM 60 MINUTES Jagjit Cheema MD [address] [facility] [place] [address] Phone: tel: fax: Referral ID Status Reason Start Date Expiration Date V isits Requested Visits Authorized [id number] Closed PCP Requested Referral 12/24/2024 12/24/2025 1 1 Care Teams (unrecognized sec tion and content) Ultrasound Tech Relationship Specialty Start Date End Date Jagjit Cheema MD [address] [place] [address] PCP - General Family Practice 04/13/12 Ultrasound Tech Relationship Specialty Start Date End Date Jagjit Cheema MD [address] [place] [address] PCP - General Family Practice 04/13/12 Ultrasound Tech Relationship Specialty [place] [address] [place] [address] [place] [address] PCP - General Family Practice 04/13/12 Ultrasound Tech Relationship Specialty Start Date End Date Jagjit Cheema MD [address] [place] [address] [place] [address] PCP - General Family Practice 04/13/12 Ultrasound Tech Relationship Specialty Start Date End Date Jagjit Cheema MD [address] [place] [address], [place] [address] PCP - General Family Practice 04/13/12 Ultrasound Tech Relationship Specialty Start Date End Date Jagjit Cheema MD [address] [facility] [place] [address] PCP - General Family Practice 04/13/12 Ultrasound Tech Relationship Specialty Start Date End Date Jagjit Cheema MD [address] [facility] [place] [address] PCP - General Family Practice 04/13/12 Ultrasound Tech Relationship Specialty Start Date End Date Jagjit Cheema MD [address] [facility] [place] [address] PCP - General Family Practice 04/13/12 Ultrasound Tech Relationship Specialty Start Date End Date Jagjit Cheema MD [address] [facility] [place] [address] PCP - General Family Practice 04/13/12 Ultrasound Tech Relationship Specialty Start Date End Date Jagjit Cheema MD [address] [facility] [place] [address] PCP - General Family Practice 04/13/12 Ultrasound Tech Relationship Specialty Start Date End Date Jagjit Cheema MD [address] [facility] [place] [address] PCP - General Family Practice 04/13/12 Ultrasound Tech Relationship Specialty Start Date End Date Jagjit Cheema MD [address] [facility] [place] [address] PCP - General Family Medicine 04/13/12 Ultrasound Tech Relationship Specialty Start Date End Date Jagjit Cheema MD [address] [facility] [place] [address] PCP - General Family Medicine 04/13/12 Team [...] Provider, Referring Provider Active Hussein Gramajo NP, TECHNICAL APPLICATIONS SPECIALIST-C Attending Provider Active Team Status: Active Member Role Status Dates Dr. Jagjit Cheema MD Primary Care Provider Active Dr. Willis Alfred MD Attending Provider Active Team Status: Inactive Member Role Status Dates Dr. Jagjit Cheema MD Primary Care Provider, Referring Provider Active Aparna Gooden TECHNICAL APPLICATIONS SPECIALIST, TECHNICAL APPLICATIONS SPECIALIST-C Attending Provider Active Team Status: Active Member [...] Provider, Referr ing Provider Active Dr. Willis lAfred MD Other Provider Active Team Status: Inactive [...] Jagjit Cheema MD Primary Care Provider Active Stew Shi MD Attending Provider, Emergency Provid er Active Ultrasound Tech Relationship Specialty Start Date End Date Jagjit Cheema MD [address] [place], [place] [address] PCP - General Family Medicine 04/13/12 Ultrasound Tech Relationship Specialty Start Date End Date Jagjit Cheema MD [address] [place], [place] [id number] PCP - General Family Medicine 04/13/12 Ultrasound Tech Relationship Specialty Start Date End Date Jagjti Cheema MD [address] [facility] [place] [address] PCP - General Family Medicine 04/13/12 Ultrasound Tech Relationship Specialty Start Date End Date Jagjit Cheema MD [address] [facility] [place] [address] PCP - General Family Medicine 04/13/12 Ultrasound Tech Relationship Specialty Start Date End Date Jagjit Cheema MD [address] [facility] [place] [address] PCP - General Family Medicine 04/13/12 Ultrasound Tech Relationship Specialty Start Date End Date Jagjit Cheema MD [address] [facility] [place] [address] PCP - General Family Medicine 04/13/12 Ultrasound Tech Relationship Specialty Start Date End Date Jagjit Cheema MD [address] [facility] [place] [address] PCP - General Family Medicine 04/13/12 Team Status: Active Member Role Status Dates Dr. Jagjit Cheema MD Primary Care Provider Active SARA Young Attending Provider, Referring Pro vider Active Team Status: Active Member Role Status Dates Dr. Jagjit Cheema MD Primary Care Provider Active Dr. Nahum Dias DO Emergency Provider Active Dr. Lucy Partida MD Admit Provider, Attending Prov ider Active Team Status: Inactive Member Role Status Dates Dr. Jagjit Cheema MD Primary Care Provider Active Dr. Vee Horton MD Emergency Provider Active Team Status: Active Member Role Status Dates Dr. Jagjit Cheema MD Primary Care Provider Active Dr. Nahum Dias DO Emergency Provider Active Dr. Lucy Partida MD Admit Provider, Attending Provider, Other Provider Active Team Status: Inactive Member Role Status Dates Dr. Jagjit Cheema MD Primary Care Provider Active Dr. Nahum Dias DO Emergency Provider Active Dr. Lucy Partida MD Admit Provider, Other Provider Active Dr. Librado Bah DO Attending Provider Active Ultrasound Tech Relationship Specialty Start Date End Date Jagjit Cheema MD [address] [place] [address] PCP - General Family Medicine 04/13/12 Ultrasound Tech Relationship Specialty Start Date End Date Jagjit Cheema MD [address] [place], [place] [address]66[address] PCP - General Family Medicine 04/13/12 Ultrasound Tech Relationship Specialty Start Date End Date Jagjit Cheema MD [address] [place] [address] PCP - General Family Medicine 04/13/12 Ultrasound Tech Relationship Specialty Start Date End Date Jagjit Cheema MD [address] [place] [address] PCP - General Family Medicine 04/13/12 Ultrasound Tech Relationship Specialty Start Date End Date Jagjit Cheema MD [address] [place], [place] [address] PCP - General Family Medicine 04/13/12 Team Status: Active Member Role Status Dates Dr. Jagjit Cheema MD Primary Care Provider Active GEOFF SAMUELS Attending Provider Active Team Status: Inactive Member Role Status Dates Dr. Jagjit Cheema MD Primary Care Provider Active GEOFF SAMUELS Attending Provider Active Ultrasound Tech Relationship Specialty Start Date End Date Jagjit Cheema MD [address] [place], [place] [address]51011 PCP - General Family Medicine 04/13/12 Team Status: Inactive Member Role Status Dates Dr. Jagjit Cheema MD Primary Care Provider, Referring Provider Active Aparna Gooden NP, TECHNICAL APPLICATIONS SPECIALIST-C Active Dr. Flores Glover MD Attending Provider Active Team Status: Inactive Member Role Status Dates Dr. Jagjit Cheema MD Primary Care Provider Active TRAV MCGEE NP-C Attending Provider, Referring Pro vider Active Dr. Flores Glover MD Other Provider Active Ultrasound Tech Relationship Specialty Start Date End Date Jagjit Cheema MD [address] [place] [address] PCP - General Family Medicine 04/13/12 Ultrasound Tech Relationship Specialty Start Date End Date Jagjit Cheema MD [address] [place] [address] PCP - General Family Medicine 04/13/12 Ultrasound Tech Relationship Specialty Start Date End Date Jagjit Cheema MD [address] [place] [address] PCP - General Family Medicine 04/13/12 Team [...] MD Attending Provider, Referring Pr ovider Active Ultrasound Tech Relationship Specialty Start Date End Date Jagjit Cheema MD [address] [place] [address] PCP - General Family Medicine 04/13/12 Ultrasound Tech Relationship Specialty Start Date End Date Jagjit Cheema MD [address] [place], [place] [address]7541 PCP - General Family Medicine 04/13/12 Ultrasound Tech Relationship Specialty Start Date End Date Jagjit Cheema MD [address] [place], [place] [address] PCP - General Family Medicine 04/13/12 Ultrasound Tech Relationship Specialty Start Date End Date Jagjit Cheema MD [address] [place] [address] PCP - General Family Medicine 04/13/12 Ultrasound Tech Relationship Specialty Start Date End Date Jagjit Cheema MD [address] [place], [place] [address]29[address] PCP - General Family Medicine 04/13/12 Ultrasound Tech Relationship Specialty Start Date End Date Jagjit Cheema MD [address] [place] [address] PCP - General Family Medicine 04/13/12 Ultrasound Tech Relationship Specialty Start Date End Date Jagjit Cheema MD [address] [place] [address] PCP - General Family Medicine 04/13/12 Ultrasound Tech Relationship Specialty Start Date End Date Jagjit Cheema MD [address] [place] [address] PCP - General Family Medicine 04/13/12 Ultrasound Tech Relationship Specialty Start Date End Date Jagjit Cheema MD [address] [place] [address] PCP - General Family Medicine 04/13/12 Ultrasound Tech Relationship Specialty Start Date End Date Jagjit Cheema MD [address] [place], [place] [address]28[address] PCP - General Family Medicine 04/13/12 Ultrasound Tech Relationship Specialty Start Date End Date Jagjit Cheema MD [address] [place], [place] [address] PCP - General Family Medicine 04/13/12 Ultrasound Tech Relationship Specialty Start Date End Date Jagjit Cheema MD [address] [place], [place] [address]01 PCP - General Family Medicine 04/13/12 Ultrasound Tech Relationship Specialty Start Date End Date Jagjit Cheema MD [address] [place] [address] PCP - General Family Medicine 04/13/12 Ultrasound Tech Relationship Specialty Start Date End Date Jagjit Cheema MD [address] [place] [address] PCP - General Family Medicine 04/13/12 Ultrasound Tech Relationship Specialty Start Date End Date Jagjit Cheema MD [address] [place] [address] PCP - General Family Medicine 04/13/12 Ultrasound Tech Relationship Specialty Start Date End Date Jagjit Cheema MD [address] [place] [address] PCP - General Family Medicine 04/13/12 Ultrasound Tech Relationship Specialty Start Date End Date Jagjit Cheema MD [address] [place] [address] PCP - General Family Medicine 04/13/12 Ultrasound Tech Relationship Specialty Start Date End Date Jagjit Cheema MD [address] [place], [place] [address]007[address] PCP - General Family Medicine 04/13/12 Susan Kerr APRN.BIOSOLIDS MANAGEMENT TECHNICIAN [address] [place] [address] Logistics Team Leader Family [facility] 05/27/24 Beverley Gutierrez APRN.BIOSOLIDS MANAGEMENT TECHNICIAN [address] [facility] [address] Logistics Team Leader [facility] 05/27/24 Ultrasound Tech Relationship Specialty Start Date End Date Jagjit Cheema MD [address] [facility] [place] [address] PCP - General Family Medicine 04/13/12 Susan Kerr APRN.BIOSOLIDS MANAGEMENT TECHNICIAN [address] [facility] [place] [address] Logistics [facility] 05/27/24 Ultrasound Tech Relationship Specialty Start Date End Date Jagjit Cheema MD [address] [place] [address] PCP - General Family Medicine 04/13/12 Susan Kerr APRN.BIOSOLIDS MANAGEMENT TECHNICIAN [address] [facility] [place] [address] Logistics Team [facility] 05/27/24 Ultrasound Tech Relationship Specialty Start Date End Date Jagjit Cheema MD [address] [place] [address] PCP - General Family Medicine 04/13/12 Susan Kerr APRN.BIOSOLIDS MANAGEMENT TECHNICIAN [address] [place] [address] Logistics Team [facility] 05/27/24 Ultrasound Tech Relationship Specialty Start Date End Date Jagjit Cheema MD [address] [facility] [address] PCP - General Family Medicine 04/13/12 Susan Kerr APRN.BIOSOLIDS MANAGEMENT TECHNICIAN [address] [place] [address] Logistics Team Leader Family [facility] 05/27/24 Beverley Gutierrez WET PLANT OPERATOR.BIOSOLIDS MANAGEMENT TECHNICIAN [address] [facility] [place] [address] Logistics Team [facility] 05/27/24 Ultrasound Tech Relationship Specialty Start Date End Date Jagjit Cheema MD [address] [place] [address] PCP - General Family Medicine 04/13/12 Susan Kerr APRN.BIOSOLIDS MANAGEMENT TECHNICIAN [address] [place] [address] Logistics [facility] 05/27/24 Beverley Gutierrez WET PLANT OPERATOR.BIOSOLIDS MANAGEMENT TECHNICIAN [address] [place] [address] Formerly [facility] 05/27/24 Ultrasound Tech Relationship Specialty Start Date End Date Jagjit Cheema MD [address] [place] [address] PCP - General Family Medicine 04/13/12 Susan Kerr WET PLANT OPERATOR.BIOSOLIDS MANAGEMENT TECHNICIAN [address] [place] [address] Formerly [facility] 05/27/24 Beverley Gutierrez WET PLANT OPERATOR.BIOSOLIDS MANAGEMENT TECHNICIAN [address] [facility] [place] [address] Formerly [facility] 05/27/24 Ultrasound Tech Relationship Specialty Start Date End Date Jagjit Cheema MD [address] [facility] [place] [address] PCP - General Family Medicine 04/13/12 Susan Kerr APRN.BIOSOLIDS MANAGEMENT TECHNICIAN [address] [place] [address] Logistics Team Leader Family Medicine 05/27/24 Beverley Gutierrez APRN.BIOSOLIDS MANAGEMENT TECHNICIAN [address] [facility] [place] [address] Logistics Team Leader [facility] Medicine 05/27/24 Ultrasound Tech Relationship Specialty Start Date End Date Jagjit Cheema MD [address] [facility] [place] [address] PCP - General Family Medicine 04/13/12 Susan Kerr WET PLANT OPERATOR.BIOSOLIDS MANAGEMENT TECHNICIAN [address] [facility] [place] [address] Logistics Team Leader Family Medicine 05/27/24 Beverley Gutierrez WET PLANT OPERATOR.BIOSOLIDS MANAGEMENT TECHNICIAN [address] [place] [address] Logistics Team Leader Family Medicine 05/27/24 Ultrasound Tech Relationship Specialty Start Date End Date Jagjit Cheema MD [address] [facility] [place] [address] PCP - General Family Medicine 04/13/12 Susan Kerr APRN.BIOSOLIDS MANAGEMENT TECHNICIAN [address] [facility] [place] [address] Logistics Team Leader Family Medicine 05/27/24 Beverley Gutierrez WET PLANT OPERATOR.BIOSOLIDS MANAGEMENT TECHNICIAN [address] [place] [address] Logistics Team Leader [facility] 05/27/24 Ultrasound Tech Relationship Specialty Start Date End Date Jagjit Cheema MD [address] [facility] [place] [address] PCP - General Family Medicine 04/13/12 Susan Kerr, WET PLANT OPERATOR.BIOSOLIDS MANAGEMENT TECHNICIAN [address] [place] [address] Logistics Team Leader Family Medicine 05/27/24 Beverley Gutierrez WET PLANT OPERATOR.BIOSOLIDS MANAGEMENT TECHNICIAN [address] [place] [address] Logistics [facility] 05/27/24 Ultrasound Tech Relationship Specialty Start Date End Date Jagjit Cheema MD [address] [place] [address] PCP - General Family Medicine 04/13/12 Susan Kerr, WET PLANT OPERATOR.BIOSOLIDS MANAGEMENT TECHNICIAN [address] [place] [address] Logistics Team Leader Family Medicine 05/27/24 Beverley Gutierrez WET PLANT OPERATOR.BIOSOLIDS MANAGEMENT TECHNICIAN [address] [place] [address] Logistics Team LeaderUnitypoint [facility] 05/27/24 Ultrasound Tech Relationship Specialty Start Date End Date Jagjit Cheema MD [address] [place] [address] PCP - General Family Medicine 04/13/12 Susan Kerr, WET PLANT OPERATOR.BIOSOLIDS MANAGEMENT TECHNICIAN [address] [place] [address] Logistics Team Leader [facility] 05/27/24 Beverley Gutierrez WET PLANT OPERATOR.BIOSOLIDS MANAGEMENT TECHNICIAN [address] [place], [place] 6934[address] [phone] Formerly [facility] 05/27/24 Ultrasound Tech Relationship Specialty Start Date End Date Jagjit Cheema MD [address] [place], [place] [address]043[address] PCP - General Family Medicine 04/13/12 Susan Kerr, WET PLANT OPERATOR.BIOSOLIDS MANAGEMENT TECHNICIAN [address] [place], [place] [address] [phone] Logistics Team LeaderAr[facility] 05/27/24 Beverley Gutierrez WET PLANT OPERATOR.BIOSOLIDS MANAGEMENT TECHNICIAN [address] [place] [address] Formerly [facility] 05/27/24 Ultrasound Tech Relationship Specialty Start Date End Date Jagjit Cheema MD [address] [place], [place] [address]28[address] PCP - General Family Medicine 04/13/12 Susan Kerr, WET PLANT OPERATOR.BIOSOLIDS MANAGEMENT TECHNICIAN [address] [place] [address] Logistics Team LeaderAr[facility] 05/27/24 Beverley Gutierrez WET PLANT OPERATOR.BIOSOLIDS MANAGEMENT TECHNICIAN [address] [place], [place] 2035[address] [phone] Former[facility] 05/27/24 Team Status: Active Member Role Status Dates Dr. Jagjit Cheema MD Primary Care Provider Active Team Status: Inactive Member Role Status Dates Dr. Jagjit Cheema MD Primary Care Provider Active Start: August 16, 2024 End: August 16, 2024 Dr. Jagjit Cheema MD Referring Provider Active Start: August 16, 2024 End: August 16, 2024 Hussein Gramajo TECHNICAL APPLICATIONS SPECIALIST, TECHNICAL APPLICATIONS SPECIALIST-C Attending Provider Active S tart: August 16, 2024 End: August 16, 2024 Team Status: Inactive Member Role Status Dates Dr. Jagjit Cheema MD Primary Care Provider Active Start: October 28, 2024 End: October 28, 2024 Dr. Robby Mclaughlin DO Emergency Provider Active Start: October 28, 2024 End: October 28, 2024 Ultrasound Tech Relationship Specialty Start Date End Date Jajgit Cheema MD [address] [facility] [place] [address] PCP - General Family Medicine 04/13/12 Susan Krer APRN.BIOSOLIDS MANAGEMENT TECHNICIAN [address] [facility] [place] [address] Logistics Team LeaderAr[facility] 05/27/24 Beverley Gutierrez WET PLANT OPERATOR.BIOSOLIDS MANAGEMENT TECHNICIAN [address] [facility] [place] [address] Formerly [facility] 05/27/24 Ultrasound Tech Relationship Specialty Start Date End Date Jagjit Cheema MD [address] [facility] [address] PCP - General Family Medicine 04/13/12 Susan Kerr APRN.BIOSOLIDS MANAGEMENT TECHNICIAN [address] [facility] [place] [address] Logistics Team LeaderUnitypoint Health-[facility] Medicine 05/27/24 Beverley Gutierrez APRN.BIOSOLIDS MANAGEMENT TECHNICIAN [address] [facility] [place] [address] Logistics Team LeaderUnitypoint Health-[facility] Medicine 05/27/24 Team Status: Inactive Member Role Status Dates Dr. Jagjit Cheema MD Primary Care Provider Active Start: October 28, 2024 End: October 28, 2024 Dr. Robby Mclaughlin DO Attending Provider Active Start: October 28, 2024 End: October 28, 2024 Dr. Robby Mclaughlin DO Emergency Provider Active Start: October 28, 2024 End: October 28, 2024 Team Status: Inactive Member Role Status Dates Dr. Jagjit Cheema MD Primary Care Provider Active Start: November 20, 2024 End: November 20, 2024 Dr. Jose Alberto Contreras MD Emergency Provider Active Start: November 20, 2024 End: November 20, 2024 Team Status: Inactive Member Role Status Dates Dr. Jagjit Cheema MD Primary Care Provider Active Start: November 20, 2024 End: November 20, 2024 Dr. Jose Alberto Contreras MD Attending Provider Active Start: November 20, 2024 End: November 20, 2024 Dr. Jose Alberto Contreras MD Emergency Provider Active Start: November 20, 2024 End: November 20, 2024 Team Status: Active Member Role Status Dates Dr. Jagjit Cheema MD Primary Care Provider Active Start: November 21, 2024 Dr. Karl Vo MD Attending Provider Active Start: November 21, 2024 Dr. Karl Vo MD Referring Provider Active Start: November 21, 2024 Team Status: Active Member Role Status Dates Dr. Jagjit Cheema MD Primary Care Provider Active Start: November 21, 2024 Dr. Karl Vo MD Referring Provider Active Start: November 21, 2024 Dr. Karl Vo MD Other Provider Active St art: November 21, 2024 Dr. Denise Haywood MD Attending Provider Activ e Start: November 21, 2024 Team Status: Inactive Member Role Status Dates Dr. Jagjit Cheema MD Primary Care Provider Active Start: November 28, 2024 End: November 28, 2024 Dr. Jagjit Cheema MD Referring Provider Active Start: November 28, 2024 End: November 28, 2024 Hussein Gramajo TECHNICAL APPLICATIONS SPECIALIST, TECHNICAL APPLICATIONS SPECIALIST-C Attending Provider Active S tart: November 28, 2024 End: November 28, 2024 Team Status: Inactive Member Role Status Dates Dr. Jagjit Cheema MD Primary Care Provider Active Start: November 21, 2024 End: November 21, 2024 Dr. Karl Vo MD Attending Provider Active Start: November 21, 2024 End: November 21, 2024 Dr. Karl Vo MD Referring Provider Active Start: November 21, 2024 End: November 21, 2024 Ultrasound Tech Relationship Specialty Start Date End Date Jagjit Cheema MD [address] [facility] [place] [address] PCP - General Family Medicine 04/13/12 Susan Kerr APRN.BIOSOLIDS MANAGEMENT TECHNICIAN [address] [facility] [place] [address] Logistics Team Leader Family Medicine 05/27/24 Beverley Gutierrez APRN.BIOSOLIDS MANAGEMENT TECHNICIAN [address] [place] [address] Logistics [facility] 05/27/24 Ultrasound Tech Relationship Specialty Start Date End Date Jagjit Cheema MD [address] [facility] [place] [address] PCP - General Family Medicine 04/13/12 Susan Kerr APRN.BIOSOLIDS MANAGEMENT TECHNICIAN [address] [facility] [place] [address] Logistics Team Leader Family Medicine 05/27/24 Beverley Gutierrez WET PLANT OPERATOR.BIOSOLIDS MANAGEMENT TECHNICIAN [address] [facility] [place] [address] Logistics Team Leader Family Medicine 05/27/24 Ultrasound Tech Relationship Specialty Start Date End Date Jagjit Cheema MD [address] [place] [address] PCP - General Family Medicine 04/13/12 Susan Kerr APRN.BIOSOLIDS MANAGEMENT TECHNICIAN [address] [place] [address] Logistics Team Leader Family Medicine 05/27/24 Beverley Gutierrez APRN.BIOSOLIDS MANAGEMENT TECHNICIAN [address] [facility] [place] [address] Logistics [facility] 05/27/24 Ultrasound Tech Relationship Specialty Start Date End Date Jagjit Cheema MD [address] [facility] [place] [address] PCP - General Family Medicine 04/13/12 Susan Kerr APRN.BIOSOLIDS MANAGEMENT TECHNICIAN [address] [place] [address] Logistics Team Leader Family Medicine 05/27/24 Beverley Gutierrez APRN.BIOSOLIDS MANAGEMENT TECHNICIAN [address] [facility] [place] [address] Logistics [facility] 05/27/24 Ultrasound Tech Relationship Specialty Start Date End Date Jagjit Cheema MD [address] [facility] [place] [address] PCP - General Family Medicine 04/13/12 Susan Kerr APRN.BIOSOLIDS MANAGEMENT TECHNICIAN [address] [place] [address] Logistics Team Leader Family Medicine 05/27/24 Beverley Gutierrez APRN.BIOSOLIDS MANAGEMENT TECHNICIAN [address] [facility] [place] [address] Logistics [facility] 05/27/24 Ultrasound Tech Relationship Specialty Start Date End Date Jagjit Cheema MD [address] [facility] [place] [address] PCP - General Family Medicine 04/13/12 Susan Kerr APRN.BIOSOLIDS MANAGEMENT TECHNICIAN [address] [place] [address] [facility]ly [facility] 05/27/24 Beverley Gutierrez APRN.[facility] [address] [facility] [place] [address] Formerly [facility] 05/27/24 Goals (unrecognized section and content) Goals [...] BE BASED ON THE PRIMARY CLINICAL RECORDS. [facility] [employer] [facility]. provides no warranty or guarantee of the accuracy or completeness of information in this document.
--- NOTE | 2025-01-30 23:38 | CDU_ITS ---
Reason For Study Reason For Study: Evaluate for stenosis Rt. Velocities/BP Lt. Velocities/BP Prox CCA 86.3/11.6 cm/sec. Prox CCA 117/11.4 cm/sec. Mid CCA 68.3/7.8 cm/sec. Mid CCA 81.4/10.2 cm/sec. Dist CCA 62.6/9.7 cm/sec. Dist CCA 80.2/9 cm/sec. Prox ICA 33.3/7.8 cm/sec. Prox ICA 49.5/11.4 cm/sec. Mid ICA 64.5/15.7 cm/sec. Mid ICA 70.4/15.1 cm/sec. Dist ICA 79.1/17.5 cm/sec. Dist ICA 60.5/15.1 cm/sec. Rt. ICA/CCA = 1.16. Lt. ICA/CCA = 0.86. Prox ECA 84.4/4.1 cm/sec. Prox ECA 96.1/5.3 cm/sec. Rt. Vert. 47.5/8.8 cm/sec. Lt. Vert. 64.2/16.3 cm/sec. Right Extracranial There is intimal thickening but no significant atherosclerotic plaque noted in the right common carotid artery. There is intimal thickening but no significant atherosclerotic plaque noted in the right internal carotid artery. There is homogeneous, smooth atherosclerotic plaque noted in the right external carotid artery. Antegrade flow is noted in the right vertebral artery. Left Extracranial There is intimal thickening but no significant atherosclerotic plaque noted in the left common carotid artery. There is homogeneous, smooth atherosclerotic plaque noted in the left internal carotid artery. There is intimal thickening but no significant atherosclerotic plaque noted in the left external carotid artery. Antegrade flow is noted in the left vertebral artery. Procedure This is a Carotid Duplex examination using B-mode, color flow and specral Doppler. Carotid Duplex [id number]. Exam performed portable in patient room. VL/Carotid Duplex Ultrasound Interpretation Summary No significant atherosclerotic plaque or stenosis noted in the right internal c arotid artery. Mild (<50%) stenosis left extracranial internal carotid. Flow within the vertebral arteries is antegrade bilaterally. Ordering Physician: Lalo Jacobs Referring Physician: Jagjit Myers Performed By: Angela Og RVT
--- NOTE | 2025-01-30 23:38 | ECHOD_ITS ---
Reason For Study Reason For Study: SYNCOPE/NEAR SYNCOPE Procedure This was a 2D Doppler, Color Flow transthoracic echocardiogram. The study was technically difficult. Exam performed portable in patient room. Left Ventricle Normal LV size. Moderate concentric left ventricular hypertrophy. Left ventricular systolic function is normal. The left ventricular ejection fraction is 60 %. No regional wall motion abnormalities noted. Right Ventricle Normal RV size. Normal systolic function. Atria The left atrium is moderately enlarged. Normal right atrium. Mitral Valve Normal mitral valve. Tricuspid Valve Normal tricuspid valve. Aortic Valve Trisinus/trileaflet aortic valve. Pulmonic Valve Normal pulmonic valve. Great Vessels Mildly dilated aortic root. The pulmonary artery is normal size. Inferior vena cava collapse with respiration. Pericardium/Pleural No pericardial effusion. MMode/2D Measurements & Calculations LVIDd: 5.5 cm IVSd: 1.5 cm Ao root diam: 4.1 cm LVIDs: 3.4 cm LVPWd: 1.3 cm RVDd: 4.3 cm FS: 37.8 % LAV(MOD-bp): 118.6 ml LVAd ap4: 34.6 cm2 LVAd ap2: 31.8 cm2 LAV(MOD-bp) Indexed: 43.7 ml/m2 LVLd ap4: 8.5 cm LVLd ap2: 9.1 cm LAV(MOD-sp2): 115.8 ml EDV(MOD-sp4): 115.5 ml EDV(MOD-sp2): 95.1 ml LAV(MOD-sp4): 115.1 ml EDV(sp4-el): 119.5 ml EDV(sp2-el): 94.3 ml LVAs ap4: 20.9 cm2 LVAs ap2: 18.4 cm2 LVLs ap4: 7.1 cm LVLs ap2: 7.6 cm ESV(MOD-sp4): 51.0 ml ESV(MOD-sp2): 38.9 ml ESV(sp4-el): 51.9 ml ESV(sp2-el): 37.7 ml EF(MOD-sp4): 55.9 % EF(MOD-sp2): 59.1 % EF(sp4-el): 56.6 % SV(MOD-sp4): 64.5 ml SV(MOD-sp2): 56.2 ml SV(sp4-el): 67.7 ml SI(MOD-sp4): 23.8 ml/m2 SI(MOD-sp2): 20.7 ml/m2 LA A4 area: 28.9 cm2 LA dimension(2D): 5.9 cm TAPSE: 3.0 cm Time Measurements MV dec time: 0.19 sec Doppler Measurements & Calculations MV E max keaton: 82.5 cm/sec Lat Peak E' Keaton: 12.2 cm/sec Med Peak E' Keaton: 7.6 cm/sec MV A max keaton: 67.3 cm/sec E/E' lat: 6.8 E/E' med: 10.8 MV E/A: 1.2 Ao V2 max: 94.5 cm/sec LV V1 max: 87.4 cm/sec PA V2 max: 111.4 cm/sec Ao max P.6 mmHg LV V1 max P.1 mmHg PA V2 mean: 76.4 cm/sec Ao V2 mean: 66.9 cm/sec LV V1 mean P.8 mmHg Ao mean P.0 mmHg LV V1 mean: 63.5 cm/sec Ao V2 VTI: 21.5 cm LV V1 VTI: 19.6 cm AV (velocity ratio): 0.91 ECHO/Echo Complete Interpretation Summary Normal LV size. Left ventricular systolic function is normal. Moderate concentric left ventricular hypertrophy. Mildly dilated aortic root. The left ventricular ejection fraction is 60 %. Ordering Physician: Lalo Jacobs Referring Physician: Jagjit Myers Performed By: Imelda Lopez RDCS, RVT
--- OUTSIDE RECORDS SUMMARY | 2025-01-30 23:40 | XMS RPT_ITS | CCD ---
Author Organization [facility] Care Team Providers Care Work Order Sorting Clerk Name Role Phone Aurora ZIMMERMAN, Sara Carter Unavailable Unavailable JAGJIT SOUZA Unavailable Unavailable ALYSAJAGJIT GUY Unavailable Unavailable JAGJIT SOUZA Unavailable Unavailable Erlin Mohr Unavailable Unavailable Hernán ZIMMERMAN, Dyana Nelson Unavailable [phone] Jagjit Cheema MD Primary Care Provider 1([facility])[phone] Dr. Jagjit Cheema Primary Care Provider 1([facility])[phone] Dr. Sergo Perez Attending Provider 1([facility])-[phone] Prebish CREATIVE ASSISTANT, CREATIVE ASSISTANT-C Isabel Referring Provider Dr. Jagjit Cheema Referring Provider 1([facility])[phone] Avila FISHER NP-Harper Galvin Attending Provider Jagjit Cheema MD Primary Care Provider Dr. Jagjit Cheema Primary Care Provider Jagjit Cheema MD Primary Care Provider 1([facility])[phone] Dr. Jagjit Cheema Primary Care Provider Dr. Jagjit Cheema Referring Provider 1([facility])[phone] Willis Alfred Attending Provider Jagjit Cheema MD Primary Care Provider 1([facility])[phone] SARA Gramajo NP Attending Provider Giacomo FISHER, NATALIA-Harper Braun Attending Provider Dr. Willis Alfred Referring Provider Dr. Willis Alfred Other Provider 1([facility])[phone] Shaji Wyatt Attending Provider Dr. [...] DENI, JAGJIT Sanders Primary Care Unavailable Haagen PARK KEEPER.LEASING ASSISTANT, Susan Unavailable Suppan PARK KEEPER.LEASING ASSISTANT, Beverley A Unavailable [phone] Suppan PARK KEEPER.LEASING ASSISTANT, Beverley A Unavailable Suppan PARK KEEPER.LEASING ASSISTANT, Beverley A Unavailable Dr. Jagjit Cheema MD Primary Care Provider [...] Care Unavailable Jose Alberto Contreras Attending Unavailable [place], Jagjit Primary Care Unavailable Robby Mclaughlin Attending Unavailable Deni, Jagjit Primary Care Unavailable Roof NATALIA, Hussein Galvin Attending Unavailable NoatakJagjit bagley Referring Unavailable [place], Jagjit Primary Care Unavailable [place], Jagjit Primary Care Unavailable Karl Vo Consulting Unavailable Karl Vo Referring Unavailable Denise Haywood Attending Unavailcuba e Jagjit Cheema Referring Unavailable Roof NATALIA, Hussein Galvin Attending Unavailable [place], Jagjit Primary Care Unavailable Sergo Perez Attending Unavailable [place], Jagjit Primary Care Unavailable [place], Jagjit Primary Care Unavailable Karl Vo Attending Unavailable Karl Vo Referring Unavailable Mayelin Rodriguez Attending Unavailable Mayelin Rodriguez Referring Unavailable NoatakJagjit Primary Care Unavailable Allergies Allergy Classification Reported Allergen(s) Allergy Type Date of Onset Reaction(s) Facility Sulfonamides (antibiotic) (3 sources) Sulfonamides (Antibiotic) Drug Allergy 5 [facility] Work Phone: (3 sources) Sulfonamides (Antibiotic) drug allergy 3 [facility] Work Phone: (1 source) Sulfonamides (Antibiotic) Drug allergy (disorder) [facility] Repository (20 sources) Sulfonamides (Antibiotic); Translations: [SULFA (SULFONAMIDE ANTIBIOTICS)] Drug Allergy 5 [facility] Work Phone: (17 sources) Sulfonamides (Antibiotic) Allergy to substance 2 Unknown [facility] (1 source) Sulfonamides (Antibiotic) Drug allergy (disorder) 5 [facility] Repository Medications Current Medications Medication Drug [...] days. Take at first signs of outbreak. [id number] 200 actuat albuterol 0.09 mg/actuat metered dose [...] TABS One tablet by mouth daily ASPIRIN [id number] Rubina Barger RN Start: 07-18-2012 take 1 tablet by dewayne th once daily ASPIRIN 81 MG TABS One tablet by mouth daily ASPIRIN 40265367757 Rubina Barger RN Comment on above: Take [...] 3:09pm Start: 07-10-2012 take 1 tablet by [facility] once daily NEXIUM 40 MG CPDR One tablet by mouth daily ESOMEPRAZOLE MAGNESIUM 87781178535 Dionisio Herrera RN Comment on above: Take 1 capsule by mo [facility] twice daily before meals. Take 1 capsule by mo [facility] two times a day before meals. finasteride [...] 1 tablet by dewayne th once daily Multivitamin,Kp-Hyzl-Bxyjwkao Active 1 T ABLET PO DAILY December 09, 2013 11:00pm Start: 12-10-2013 take 1 tablet by dewayne th once daily Multivitamin,Du-Igtj-Hqvnfgde Active 1 T ABLET PO DAILY December [...] 0 01/09/2024 01/14/2024 Active polyethylene glycol 3350 503494 mg / potassium chloride 2970 mg / sodium bicarbonate 6740 mg / sodium chloride 5860 mg / sodium sulfate 78023 mg powder for oral solution (1 source) [...] by mouth daily POTASSIUM CHLORIDE DEB CR 51801598226 Willis Alfred MD Start: 01-30-2013 take 1 tablet by dewayne th once daily KLOR-CON M20 20 MEQ CR-TABS One tablet by mouth daily POTASSIUM CHLORIDE DEB CR 59590327337 Willis Alfred MD Comment on above: Take 2 tablets by mo [facility] once daily. predniSONE 20 mg oral tablet [...] 100 mg every 1 weeks TESTOSTERONE CYPIONATE 63416612985 Dyana Alvarez PA-C Start: 09-04-2013 TESTOSTERONE C YPIONATE 100 MG/ML SOLN 150 mg every 2 weeks TESTOSTERONE CYPIONATE 05262114823 Willis Alfred MD Comment on above: APPLY [...] One tablet by mouth daily ATORVASTATIN CALCIUM 55566829385 Willis Alfred MD Comment on above: Take 1 tablet by edwayne th daily at bedtime. For cholesterol. benzonatate [...] th once daily WELLBUTRIN SR 150 MG [id number] One tablet by mouth daily BUPROPION HCL 65874835668 Dyana Alvarez PA-C Start: 01-08-2015 take 1 tablet by dewayne th once daily WELLBUTRIN SR 150 MG [id number] One tablet by mouth daily BUPROPION HCL 45362802770 Dyana Alvarez PA-C Comment on above: Take [...] Start: 05-01-2018 take 1 capsule by mo [facility] once daily Cholecalciferol, Vitamin D3, (VITAMIN D) 1,000 unit cap Indications: Vitamin D deficiency Take 1 capsule by mouth once daily. 90 capsule 3 05/01/2018 Active Comment on above: Take 1 capsule by mo [facility] once daily. ciprofloxacin 500 mg oral tablet [...] One tablet by mouth daily CITALOPRAM HYDROBROMIDE 83949472622 Willis Alfred MD colchicine 0.6 mg oral tablet (6 sources) Start: 12-11-2021 take 2 tablets by mouth every hour colchicine 0.6 mg tablet Take 2 tablets by mouth, wait one hour and take the third tablet. 3 tablet 0 12/11/2021 Active Comment on above: Take 2 tablets by mo [facility], wait one hour and take the third [...] Discontinued Start: 10-04-2024 take 1 tablet by [facility] once daily desvenlafaxine ER (PRISTIQ) 50 mg [...] CAPS One tablet by mouth daily DUTASTERIDE 81032021746 Dyana Alvarez PA-C enteric contrast (will be [...] by mouth daily OMEGA-3 FATTY ACIDS CAPS 94240042947 Willis Alfred MD Start: 07-18-2012 take 1 tablet by dewayne th once daily FISH OIL CAPS One tablet by mouth daily OMEGA-3 FATTY ACIDS CAPS 06559537545 Willis Alfred MD gabapentin 300 mg oral [...] / neomycin 3.5 mg/ml / polymyxin b 37221 unt/ml otic solution (17 sources) Aminoglycoside Antibacterial, Polymyxin-class Antibacterial, Corticosteroid Start: 02-12-2022 End: 04-29-2022 Neomycin-Polymyxi n-Hc 3.5-10,000-1 mg/mL-unit/mL-% solution Discontinued 4 NMA RIGHT EAR EVERY 6 HOURS February 12, 2022 12:00am April 29, 2022 11:07am Start: 02-12-2022 End: 04-29-2022 Inzjxzps-Egxsqpado-Rq Discon tinued 4 DRP RIGHT EAR EVERY [...] One tablet by mouth daily (STOP) LISINOPRIL 46802680989 Dyana Alvarez PA-C Start: 07-10-2012 End: 07-18-2012 take 1 tablet by mouth once daily LISINOPRIL 10 MG TABS One tablet by mouth daily LISINOPRIL 18235492224 Dionisio Herrera RN meclizine hydrochloride 25 mg [...] One tablet by mouth daily MONTELUKAST SODIUM 25051037800 Dionisio Herrera RN MULTIPLE VITAMINS-MINERALS (1 source) Start: take 1 tablet by mouth once daily CENTRUM SILVER TABS One tablet by mouth daily MULTIPLE VITAMINS-MINERALS 78095451897 Willis Alfred MD MULTIPLE VITAMINS-MINERALS (2 sources) Start: take 1 tablet by mouth once daily CENTRUM SILVER TABS One tablet by mouth daily MULTIPLE VITAMINS-MINERALS 80222683728 Willis Alfred MD Multivitamin,Tx-Iron- Minerals 1 TABLET [...] 5 min up to 3 X NITROGLYCERIN 28810346864 Willis Alfred MD nystatin 067581 unt/ml oral suspension (19 sources) Polyene Antifungal Start: 019 End: 019 take 794094 [IU] by mouth every six hours Nystatin 500,000 UNIT/5 ML Udc Discontinued 626367 U PO EVERY 6 HOURS 1 July 28, 2018 1:00am August 03, 2018 1:00am August 04, 2018 1:12am OMEGA-3 FATTY ACIDS CPDR (1 source) Start: 015 take 1 tablet by mouth once daily OMEGA 3 CPDR One tablet by mouth daily OMEGA-3 FATTY ACIDS CPDR 02791098774 Dyana Alvarez PA-C OMEGA-3 FATTY ACIDS CPDR (2 sources) Start: take 1 tablet by mouth once daily OMEGA 3 CPDR One tablet by mouth daily OMEGA-3 FATTY ACIDS CPDR 04930294971 Dyana Alvarez PA-C 24 hr oxybutynin chloride [...] by mouth twice daily RANEXA 500 MG [id number]-DPR One tablet by mouth twice daily RANOLAZINE 39764639011 Rubina Barger RN Start: 12-27-2012 take 1 tablet by dewayne th twice daily RANEXA 500 MG JO97I-UGO One tablet by mouth twice daily RANOLAZINE 98083546659 Rubina Barger RN Start: 12-27-2012 End: 12-28-2012 take 1 tablet by mouth twice daily RANEXA 500 MG ZA85L-JAH One tablet by mouth twice daily RANOLAZINE 98928641709 Rubina Barger RN rivaroxaban 20 mg oral [...] TABS One tablet by mouth daily RIVAROXABAN 03449342578 Rubina Barger RN sertraline 50 mg oral [...] unspecified type , 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 , Class 2 [...] unspecified type , 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 , Class 2 [...] unspecified type , 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 , Class 2 [...] (2 sources) Long-term drug therapy; Translations: [Other oil heater operator (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) drug therapy] Onset: 3 12-17-2012 Unclassified (3 sources) Call KAYLEE for stress appointment time Unclassified (2 sources) G47.33 - Obstructive sleep apnea (adult) (pediatric),E66.09 - Other obesity due to excess calories,Z68.39 - Body mass index [BMI] 39.0-39.9, adult,I25.10 - Atherosclerotic heart disease of seneca coronary artery without angina pectoris Unclassified (1 [...] 07-10-2012 Episodic Other aftercare (1 source) Other half-way (current) drug therapy; Translations: [Other half-way (current) drug therapy] Onset: 12-17-2012 12-17-2012 Episodic Other aftercare (7 sources) Patient encounter status; Translations: [parts consultant (current) use of insulin] Onset: 12-17-2012 Resolved: 07-26-2023 07-26-2023 Episodic Other aftercare (20 sources) Long-term current use of insulin; Translations: [parts consultant (current) use of insulin] Onset: 12-17-2012 Resolved: [...] Name Value Interpretation Reference Range Facility [facility] 12-31-2024 CNOV Office Visit (GENSWS ) LAZARO GARZON ([id number]) 1955 M Date Time Provider Department 12/31/24 8:30 AM YESICA BACON GENLUDY During your visit today, we recorded the following information about you: Temperature Pulse Blood pressure Weight 97.6 degrees 79/minute 141/83 147.4 kg Height 1.93 m Yesica Bacon APRN.CNP 12/31/2024 9:02 AM Signed HISTORY AND PHYSICAL Lazaro Garzon : 1955 REFERRING PHYSICIAN: Jagjit Cheema [address] [facility] [address] CHIEF COMPLAINT: Patient presents with: New Patient: [...] disease. >10 years ago Lazaro follows with [facility] for PAF s/p cardioversion (2022) and CAD. Last OV 12/11. Last stress test 12/11 negative for ischemia, EF: 65%. He denies CP, SOB, dizziness, palpitations, syncope, edema, recent hospitalizations Lazaro has sleep apnea c/w CPAP. Lazaro has undergone prior endoscopy. Last EGD AND colonoscopy was 11/[address] Bennett at [place]. 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 Normal [facility] CBC W Auto Differential pane l (Bld)on 12-24-2024 Basophils (Bld) [#/Vol] [facility] Basophils/100 WBC (Bld) 0.3 % [facility] Differential cell count method Nom (Bld) Auto [facility] Eosinophils (Bld) [#/Vol] 0.03 10*3/uL [facility] Eosinophils/100 WBC (Bld) 0.5 % [facility] Erythrocyte distribution width (RBC) [Ratio] 12.9 % 11.5 - 15.0 % [facility] Hematocrit (Bld) [Volume fraction] 45.9 % 39.0 - 51.0 % [facility] Hemoglobin (Bld) [Mass/Vol] 15.6 g/dL 13.0 - 17.0 g/dL [facility] Immature granulocytes (Bld) [#/Vol] [facility] Immature granulocytes/100 WBC (Bld) 0.2 % [facility] Interpretation and review of laboratory results Abnormal [facility] Lymphocytes (Bld) [#/Vol] 0.95 10*3/uL Low [facility] Lymphocytes/100 WBC (Bld) 16.1 % [facility] MCH (RBC) [Entitic mass] 29.4 pg 26.0 - 34.0 pg [facility] MCHC (RBC) [Mass/Vol] 34 g/dL 30.5 - 36.0 g/dL [facility] MCV (RBC) [Entitic vol] 86.6 fL 80.0 - 100.0 fL [facility] Monocytes (Bld) [#/Vol] 0.4 10*3/uL [facility] Monocytes/100 WBC (Bld) 6.8 % [facility] Neutrophils (Bld) [#/Vol] 4.49 10*3/uL [facility] Neutrophils/100 WBC (Bld) 76.1 % [facility] Nucleated RBC (Bld) [#/Vol] [facility] Nucleated RBC/100 WBC (Bld) [Ratio] 0 % /100 WBC [facility] Platelet mean volume (Bld) [Entitic vol] 12.1 fL 9.0 - 12.7 fL [facility] Platelets (Bld) [#/Vol] 177 10*3/uL [facility] RBC (Bld) [#/Vol] 5.3 10*6/uL 4.20 - 6.00 m/uL [facility] WBC (Bld) [#/Vol] 5.9 10*3/uL [facility] Basophils (Bld) [#/Vol] 10*3/uL Normal <0.11 [facility] Comment on above: Order Comment: Speci men Type: BLOOD SPECIMENOrdering Facility: [facility] Address: [address] [place] [address] Performed By: #### 5 7021-8 ####[facility] LABCLIA [id number] [facility]ENTERK [address], [place] [address] [place] Basophils/100 WBC (Bld) 0.3 % Normal [facility] Comment on above: Order Comment: Speci men Type: BLOOD SPECIMENOrdering Facility: [facility] Address: [address] [place] [address] Performed By: #### 5 7021-8 ####[facility] LABCLIA [id number] [facility] [address], [place] [address] [place] Differential cell count method Nom (Bld) Auto Normal [facility] Comment on above: Order Comment: Speci men Type: BLOOD SPECIMENOrdering Facility: [facility] Address: [address] [place] [address] Performed By: #### 5 7021-8 ####[facility] LABCLIA [id number] [place] [address] [place] Eosinophils (Bld) [#/Vol] 0.03 10*3/uL Normal <0.46 [facility] Comment on above: Order Comment: Speci men Type: BLOOD SPECIMENOrdering Facility: [facility] Address: [address] [place] [address] Performed By: #### 5 7021-8 ####[facility] LABCLIA [id number] [facility] [place] [id number] [place] Eosinophils/100 WBC (Bld) 0.5 % Normal [facility] Comment on above: Order Comment: Speci men Type: BLOOD SPECIMENOrdering Facility: [facility] Address: [address] [place] [address] Performed By: #### 5 7021-8 ####[facility] LABIA [id number] [place] [address] [place] Erythrocyte distribution width (RBC) [Ratio] 12.9 % Normal 11.5-15.0 [facility] Comment on above: Order Comment: Speci men Type: BLOOD SPECIMENOrdering Facility: [facility] Address: [address] [place] [address] Performed By: #### 5 7021-8 ####[facility] LABIA [id number] [place] [address] [place] Hematocrit (Bld) [Volume fraction] 45.9 % Normal 39.0-51.0 [facility] Comment on above: Order Comment: Speci men Type: BLOOD SPECIMENOrdering Facility: [facility] Address: [address] [place] [address] Performed By: #### 5 7021-8 ####[facility] LABIA [id number] [place] [address] [place] Hemoglobin (Bld) [Mass/Vol] 15.6 g/dL Normal 13.0-17.0 [facility] Comment on above: Order Comment: Speci men Type: BLOOD SPECIMENOrdering Facility: [facility] Address: [address] [place] [address] Performed By: #### 5 7021-8 ####[facility] LABCLIA [id number] [place] [address] [place] Immature granulocytes (Bld) [#/Vol] 10*3/uL Normal <0.10 [facility] Comment on above: Order Comment: Speci men Type: BLOOD SPECIMENOrdering Facility: [facility] Address: [address] [place] [address] Performed By: #### 5 7021-8 ####[facility] LABCLIA [id number] [place] [address] [place] Immature granulocytes/100 WBC (Bld) 0.2 % Normal [facility] Comment on above: Order Comment: Speci men Type: BLOOD SPECIMENOrdering Facility: [facility] Address: [address] [place] [address] Performed By: #### 5 7021-8 ####[facility] LABCLIA [id number] [place] [address] [place] Lymphocytes (Bld) [#/Vol] 0.95 10*3/uL Low 1.00-4.00 [facility] Comment on above: Order Comment: Speci men Type: BLOOD SPECIMENOrdering Facility: [facility] Address: [address] [place] [address] Performed By: #### 5 7021-8 ####[facility] LABIA [id number] [place] [address] [place] Lymphocytes/100 WBC (Bld) 16.1 % Normal [facility] Comment on above: Order Comment: Speci men Type: BLOOD SPECIMENOrdering Facility: [facility] Address: [address] [place] [address] Performed By: #### 5 7021-8 ####[facility] LABCLIA [id number] [place] [address] [place] MCH (RBC) [Entitic mass] 29.4 pg Normal 26.0-34.0 [facility] Comment on above: Order Comment: Speci men Type: BLOOD SPECIMENOrdering Facility: [facility] Address: [address] [place] [address] Performed By: #### 5 7021-8 ####[facility] LABCLIA [id number] [place] [id number] [place] MCHC (RBC) [Mass/Vol] 34.0 g/dL Normal 30.5-36.0 [facility] Comment on above: Order Comment: Speci men Type: BLOOD SPECIMENOrdering Facility: [facility] Address: [address] [place] [address] Performed By: #### 5 7021-8 ####[facility] LABCLIA [id number] [address] [address] [place] MCV (RBC) [Entitic vol] 86.6 fL Normal 80.0-100.0 [facility] Comment on above: Order Comment: Speci men Type: BLOOD SPECIMENOrdering Facility: [facility] Address: [address] [place] [address] Performed By: #### 5 7021-8 ####[facility] LABCLIA [id number] [place] [address] [place] Monocytes (Bld) [#/Vol] 0.40 10*3/uL Normal <0.87 [facility] Comment on above: Order Comment: Speci men Type: BLOOD SPECIMENOrdering Facility: [facility] Address: [address] [place] [address] Performed By: #### 5 7021-8 ####[facility] LABCLIA [id number] [place] [address] [place] Monocytes/100 WBC (Bld) 6.8 % Normal [facility] Comment on above: Order Comment: Speci men Type: BLOOD SPECIMENOrdering Facility: [facility] Address: [address] [place] [address] Performed By: #### 5 7021-8 ####[facility] LABCLIA [id number] [address] [address] [place] Neutrophils (Bld) [#/Vol] 4.49 10*3/uL Normal 1.45-7.50 [facility] Comment on above: Order Comment: Speci men Type: BLOOD SPECIMENOrdering Facility: [facility] Address: [address] [place] [address] Performed By: #### 5 7021-8 ####[facility] LABCLIA [id number] [place] [address] [place] Neutrophils/100 WBC (Bld) 76.1 % Normal [facility] Comment on above: Order Comment: Speci men Type: BLOOD SPECIMENOrdering Facility: [facility] Address: [address] [place] [address] Performed By: #### 5 7021-8 ####[facility] LABCLIA [id number] [place] [address] [place] Nucleated RBC (Bld) [#/Vol] 10*3/uL Normal <0.01 [facility] Comment on above: Order Comment: Speci men Type: BLOOD SPECIMENOrdering Facility: [facility] Address: [address] [place] [address] Performed By: #### 5 7021-8 ####[facility] LABCLIA [id number] [place] [address] [place] Nucleated RBC/100 WBC (Bld) [Ratio] 0.0 /100 WBC Normal [facility] Comment on above: Order Comment: Speci men Type: BLOOD SPECIMENOrdering Facility: [facility] Address: [address] [place] [address] Performed By: #### 5 7021-8 ####[facility] LABCLIA [id number] [place] [address] [place] Platelet mean volume (Bld) [Entitic vol] 12.1 fL Normal 9.0-12.7 [facility] Comment on above: Order Comment: Speci men Type: BLOOD SPECIMENOrdering Facility: [facility] Address: [address] [place] [address] Performed By: #### 5 7021-8 ####[facility] LABCLIA [id number] [place] [id number] [place] Platelets (Bld) [#/Vol] 177 10*3/uL Normal 150-400 [facility] Comment on above: Order Comment: Speci men Type: BLOOD SPECIMENOrdering Facility: [facility] Address: [address] [place] [address] Performed By: #### 5 7021-8 ####[facility] LABIA [id number] [place] [address] [place] RBC (Bld) [#/Vol] 5.30 10*6/uL Normal 4.20-6.00 [facility] Comment on above: Order Comment: Speci men Type: BLOOD SPECIMENOrdering Facility: [facility] Address: [address] [place] [address] Performed By: #### 5 7021-8 ####[facility] LABIA [id number] [place] [address] [place] WBC (Bld) [#/Vol] 5.90 10*3/uL Normal 3.70-11.00 [facility] Comment on above: Order Comment: Speci men Type: BLOOD SPECIMENOrdering Facility: [facility] Address: [address] [place] [address] Performed By: #### 5 7021-8 ####[facility] [id number] [place] [id number] [place] CNOVon 12-24-2024 CNOV Office Visit (FAMPWS ) LAZARO GARZON ([id number]) 1955 M Date Time Provider Department 12/24/24 [...] Weigh yourself and send an update via Phoneplus or call toward the end of the month with your weight change and how you?re feeling on the medication. - Schedule a repeat colonoscopy with the general surgery team (Dr. Bales or his partner Dr. Bennett at [place]) as soon as possible, since your last [...] colonoscopy on 12/01/[address] Bennett at [place] revealed diverticuli and poor bowel preparation; recommended [...] (HCC) unchanged (more content not included)... Normal [facility]AR[facility] ([id number]) 1955 M Date Time Provider Department 12/24/24 JAGJIT CHEEMA [facility] During your visit today, we recorded the following information about you: Ni Hewitt RN 12/24/2024 3:13 PM [facility]igned [facility] Wegovy script received [...] 07/26/2023 Diagnosed: 07/26/2023 No response to treatment [[id number]] 07/26/2023 07/26/2023 (more content not included)... Normal [facility] Cardiology Visit Reporton Cardiology Visit Report [facility] [address] [place], [place] [address] OFFICE VISIT Date of Service: 11/28/24 MR#: [id number] Acct: [id number] Name: LAZARO GARZON Rep #: [id number] : 1955 Provider: SARA beckett Age/Sex: 69/M Location[place] [facility] [place] Status: Signed HPI HPI History of [...] Monitor Intake Visit Reasons: PER MH--SEE NOTES Automobile Damage Appraiser Required: No Accompanied by: Self Is patient [...] disease) Essential hypertension Atherosclerotic heart disease of [place] coronary artery without angina pectoris Confusion Unstable [...] PTCA ( (more content not included)... Normal [facility] Cardiovascular stress test r eportOrdered By: Denise Haywood on 11-21-2024 Study report [facility] Cardiovascular Services [address] [place] [address] MR#: [id number] Acct: [id number] Name: LAZARO GARZON Rep #: [id number] : 1955 69 From: Denise webber MD [...] is 65%. This note was generated with [employer] software. It may contain incorrectwords, spelling, and punctuation that were not noted in checking the note beforesigning. 11/21/24 1421 Date _ Denise Haywood MD CC: Dr. Karl Vo MD; Dr. Jagjit Cheema MD ~ Date Dictated: 11/21/241413 Date Transcribed: 11/21/241413 Auto Winder: NN Signed [facility] Work Phone: Stress Reporton 11-21-2024 Stress Report [facility] Cardiovascular Services [address] [place] [address] MR#: [id number] Acct: [id number] Name: LAZARO GARZON Rep #: [id number] : 1955 69 From: Denise Haywood MD [...] is 65%. This note was generated with [employer] software. It may contain incorrect words, spelling, and punctuation that were not noted in checking the note before signing. 11/21/24 1421 Date Denise Haywood MD CC: Dr. Karl Vo MD; Dr. Jagjit Cheema MD Date Dictated: 11/21/24 1414 Date Transcribed: 11/21/241413 Auto Winder: NN Signed Normal [facility] 12 Lead EKGon 11-20-2024 12 Lead EKG [facility] Cardiovascular Services [address] [place] [address] 12 Lead EKG 11/20/24 1035 MR#: [id number] Acct: [id number] Name: LAZARO GARZON Rep #: [id number] : 1955 69 From: Denise Haywood MD [...] JEN ([id number]), editor farm journal KIRA HECK ([id number]) on 11/25/2024 7:10:49 AM Referred By: BB/UG Confirmed By: JEN HAYWOOD MD 11/25/24709 Date Denise Haywood MD CC: Dr. Jose Alberto Contreras MD; Dr. Jagjit Cheema MD Signed Normal [facility] Absolute lymphocyte countOrd ered By: Jose Alberto Contreras on 11-20-2024 Lymphocytes Auto (Unsp spec) [#/Vol] 0.75 10*3/uL Low 0.83-4.51 [facility] Absolute neutrophil countOrd ered By: Jose Alberto Contreras on 11-20-2024 Neutrophils (Bld) [#/Vol] 5.3 10*3/uL 2.0-7.7 [facility] Anion gap in Serum or Plasma Ordered By: Jose Alberto Contreras on 11-20-2024 Anion gap [Moles/Vol] 12 mmol/L 5-15 [facility] Automated lymphocyte count a s percentage of total leukocytesOrdered By: Jose Alberto Contreras on 11-20-2024 Lymphocytes/100 WBC Auto (Unsp spec) 11.7 % Low 19-41 [facility] BUN/creatinine ratioOrdered By: Jose Alberto Contreras on 11-20-2024 Urea nitrogen/Creatinine [Mass ratio] 18.9 mg/mg 10- [facility] Basic Metabolic Profile (BMP )on 11-20-2024 BUN/CRE 18.9 RATIO Normal - [facility] Comment on above: Performed By: #### L 100.0100, L500.2500 #### [facility] [address] [place], [address] Calcium [Mass/Vol] 9.2 mg/dL Normal 7.6-11.0 [facility] Comment on above: Performed By: #### L 100.0100, L500.2500 #### [facility] [address] [place], [address] Chloride [Moles/Vol] 106 mmol/L Normal 98-108 [facility] Comment on above: Performed By: #### L 100.0100, L500.2500 #### [facility] [address] [place], [address] CO2 [Moles/Vol] 21.6 mmol/L Normal 21.0-32.0 [facility] Comment on above: Performed By: #### L 100.0100, L500.2500 #### [facility] [address] [place], [address] Creatinine [Mass/Vol] 1.22 mg/dL High 0.70-1.20 [facility] Comment on above: Performed By: #### L 100.0100, L500.2500 #### [facility] [address] [place], [address] ECRCL 95.39 ml/min Normal 50-250 [facility] Comment on above: Performed By: #### L 100.0100, L500.2500 #### [facility] [address] [place], [address] GAP 12 Normal 5-15 [facility] Comment on above: Performed By: #### L 100.0100, L500.2500 #### [facility] [address] [place], [address] GFR/1.73 sq M.predicted among non-blacks MDRD (S/P/Bld) [Vol rate/Area] 65 mL/min/{1.73_m2} Normal >60 [facility] Comment on above: Result Comment: mL/m in/1.73m2 CKD-EPI Creatinine Equation (2020) Performed By: #### L 100.0100, L500.2500 #### [facility] [address] [place] [place], [address] Glucose [Mass/Vol] 156 mg/dL High 70-99 [facility] Comment on above: Performed By: #### L 100.0100, L500.2500 #### [facility] [address] [place], [address] Potassium [Moles/Vol] 3.8 mmol/L Normal 3.3-5.1 [facility] Comment on above: Performed By: #### L 100.0100, L500.2500 #### [facility] [address] [place], [address] Sodium [Moles/Vol] 140 mmol/L Normal 133-145 [facility] Comment on above: Performed By: #### L 100.0100, L500.2500 #### [facility] [address] [place], [address] Urea nitrogen [Mass/Vol] 23 mg/dL High 4-19 [facility] Comment on above: Performed By: #### L 100.0100, L500.2500 #### [facility] [address] [place], [address] Basophil percentageOrdered B y: Jose Alberto Contreras on 11-20-2024 Basophils/100 WBC (Bld) 0.5 % 0-1 [facility] CBC W/Diff, Automatedon -0 Absolute Lymph 0.75 X10 3/uL Low 0.83-4.51 [facility] Comment on above: Performed By: #### L 100.0100, L500.2500 #### [facility] [address] [place], [address] Absolute Neut 5.3 X10 3/uL Normal 2.0-7.7 [facility] Comment on above: Performed By: #### L 100.0100, L500.2500 #### [facility] [address] [place], [address] Basophils/100 WBC (Bld) 0.5 % Normal 0-1 [facility] Comment on above: Performed By: #### L 100.0100, L500.2500 #### [facility] [address] [place], [address] Eosinophils/100 WBC (Bld) 0.2 % Normal 0-5 [facility] Comment on above: Performed By: #### L 100.0100, L500.2500 #### [facility] [address] [place], [address] Erythrocyte distribution width (RBC) [Ratio] 14.4 % Normal 11.6-14.6 [facility] Comment on above: Performed By: #### L 100.0100, L500.2500 #### [facility] [address] [place], [address] Hematocrit (Bld) [Volume fraction] 44.4 % Normal 40-54 [facility] Comment on above: Performed By: #### L 100.0100, L500.2500 #### [facility] [address] [place], [address] Hemoglobin (Bld) [Mass/Vol] 15.4 g/dL Normal 13.0-16.5 [facility] Comment on above: Performed By: #### L 100.0100, L500.2500 #### [facility] [address] [place], [address] IG% 0.500 Normal 0.0-0.9 [facility] Comment on above: Result Comment: IG% - Immature Granulocytes (promyelocytes, myelocytes and metamyelocytes) > 1% indicates that a LEFT SHIFT is Present. Performed By: #### L 100.0100, L500.2500 #### [facility] [address] [place], [address] Lymphocytes/100 WBC (Bld) 11.7 % Low 19-41 [facility] Comment on above: Performed By: #### L 100.0100, L500.2500 #### [facility] [address] [place], [address] MCH (RBC) [Entitic mass] 29.7 pg Normal 27.0-32.0 [facility] Comment on above: Performed By: #### L 100.0100, L500.2500 #### [facility] [address] [place], [address] MCHC (RBC) [Mass/Vol] 34.7 g/dL Normal 32-36 [facility] Comment on above: Performed By: #### L 100.0100, L500.2500 #### [facility] [address] [place], [address] MCV (RBC) [Entitic vol] 85.5 fL Normal 80-94 [facility] Comment on above: Performed By: #### L 100.0100, L500.2500 #### [facility] [address] [place], [address] Monocytes/100 WBC (Bld) 4.4 % Normal 0-10 [facility] Comment on above: Performed By: #### L 100.0100, L500.2500 #### [facility] [address] [place], [address] Neutrophils/100 WBC (Bld) 82.7 % High 47-70 [facility] Comment on above: Performed By: #### L 100.0100, L500.2500 #### [facility] [address] [place], [address] Nucleated RBC (Bld) [#/Vol] 0 10*3/uL Normal 0-5 [facility] Comment on above: Performed By: #### L 100.0100, L500.2500 #### [facility] [address] [place], [address] Platelet mean volume (Bld) [Entitic vol] 11.2 fL Normal 6.2-12.0 [facility] Comment on above: Performed By: #### L 100.0100, L500.2500 #### [facility] [address] [place], [address] Platelets (Bld) [#/Vol] 160 10*3/uL Normal 150-450 [facility] Comment on above: Performed By: #### L 100.0100, L500.2500 #### [facility] [address] [place], [address] RBC (Bld) [#/Vol] 5.19 10*6/uL Normal 4.6-6.2 [facility] Comment on above: Performed By: #### L 100.0100, L500.2500 #### [facility] [address] [place], [address] RDW SD 45.0 fl High 35.1-43.9 [facility] Comment on above: Performed By: #### L 100.0100, L500.2500 #### [facility] [address] [place], [address] WBC (Bld) [#/Vol] 6.4 10*3/uL Normal 4.4-11.0 [facility] Comment on above: Performed By: #### L 100.0100, L500.2500 #### [facility] [address] [place], [address] Carbon dioxide, total [Moles /volume] in Central venous bloodOrdered By: Jose Alberto Contreras on 11-20-2024 CO2 [Moles/Vol] 21.6 mmol/L 21.0-32.0 [facility] Chest PA and Lateralon 11-20 Chest PA and Lateral [facility] Imaging Services [address] [place] [address] Chest PA and Lateral MR#: [id number] Acct: [id number] Name: LAZARO GARZON Rep #: [id number] : 1955 M 69 From: Noe Noel MD PCP: Dr. Jagjit Cheema MD Status: REG ER Study: Chest PA and Lateral Date of Exam: 11/20/24 Exam# [id number] Ordering Dr: Jose Alberto Contreras MD PROCEDURE: [...] evidence of acute cardiopulmonary pathology. Reading Location: [facility] CC: Dr. Jose Alberto Contreras MD; Dr. Jagjit Cheema MD Auto Winder: Signed Normal [facility] Chloride assayOrdered By: Nola Contreras on 11-20-2024 Chloride [Moles/Vol] 106 mmol/L 98-108 [facility] D-Dimer Quantitative (DVT/PE )on 11-20-2024 D-DIMER QUANT 0.30 FEU/ug/m Normal 0.27-0.49 [facility] Comment on above: Result Comment: NORM AL D-Dimer level (<0.50) indicates no DVT or PE. Performed By: #### L 300.8000 #### [facility] [address] [place], [address] Emergency Department Summary on 11-20-2024 Emergency Department Summary [facility] Medical Records Department [address] [place] [address] Emergency Department Summary 11/20/24 MR#: [id number] Acct: [id number] Name: LAZARO GAZRON Rep #: [id number] : 1955 69 From: Jose Alberto Contreras [...] or orthopnea. 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 [facility] Medical History History of cardioversion First [...] disease) Essential hypertension Atherosclerotic heart disease of [place] coronary artery without angina pectoris Confusion Unstable [...] Social H (more content not included)... Normal [facility] Eosinophil percentageOrdered By: Jose Alberto Contreras on 11-20-2024 Eosinophils/100 WBC (Bld) 0.2 % 0-5 [facility] Erythrocyte distribution wid th ratioOrdered By: Jose Alberto Contreras on 11-20-2024 Erythrocyte distribution width (RBC) [Ratio] 14.4 % 11.6-14.6 [facility] Erythrocyte distribution wid th standard deviationOrdered By: Jose Alberto Contreras on 11-20-2024 Erythrocyte distribution width (RBC) [Ratio] 45.0 fl High 35.1-43.9 [facility] Glomerular filtration rate ( GFR) estimation/1.73 sq m using serum, plasma, or whole bOrdered By: Jose Alberto Contreras on 11-20-2024 GFR/1.73 sq M.predicted among non-blacks MDRD (S/P/Bld) [Vol rate/Area] 65 mL/min/{1.73_m2} >60 [facility] Comment on above: mL/min/1.73m2 CKD-EP I Creatinine Equation (2020) Hematocrit Auto (Bld) [Volum e fraction]Ordered By: Jose Alberto Contreras on 11-20-2024 Hematocrit (Bld) [Volume fraction] 44.4 % 40-54 [facility] Hemoglobin measurementOrdere d By: Jose Alberto Contreras on 11-20-2024 Hemoglobin (Bld) [Mass/Vol] 15.4 g/dL 13.0-16.5 [facility] Immature granulocytes/100 WB C Auto (Bld)Ordered By: Jose Alberto Contrreas on 11-20-2024 Immature granulocytes/100 WBC (Bld) 0.500 % 0.0-0.9 [facility] Comment on above: IG% - Immature Granu locytes (promyelocytes, myelocytes and metamyelocytes) > 1% indicates that a LEFT SHIFT is Present. L499.0042on 11-20-2024 Trop T High Sen 20 ng/L Normal <=22 [facility] Comment on above: Performed By: #### L 100.0100, L500.2500 #### [facility] [address] [place], [address] L499.0043on 11-20-2024 Trop T High Sen Normal <=22 [facility] Comment on above: Result Comment: Canc elled via OM: Order cancelled - Patient discharged Performed By: #### L 499.0043 #### [facility] [address] [place], [address] L501.4021on 11-20-2024 Trop T High Sen 25 ng/L High <=22 [facility] Comment on above: Performed By: #### L 100.0100, L500.2500 #### [facility] [address] [place], [address] L503.7505on 11-20-2024 Natriuretic peptide B (Bld) [Mass/Vol] 143 pg/mL Normal <=900 [facility] Comment on above: Result Comment: Hear t Failure Unlikely: < 300 pg/mL Heart Failure Likely < 50 Years: > 450 pg/mL 50-75 Years: > 900 pg/mL >75 Years: > 1800 pg/mL Performed By: #### L 100.0100, L500.2500 #### [facility] [address] [place], [address] MCV (mean corpuscular volume ) determinationOrdered By: Jose Alberto Contreras on 11-20-2024 MCV (RBC) [Entitic vol] 85.5 fL 80-94 [facility] Mean corpuscular hemoglobin (MCH) determinationOrdered By: Jose Alberto Contreras on 11-20-2024 MCH (RBC) [Entitic mass] 29.7 pg 27.0-32.0 [facility] Mean corpuscular hemoglobin concentration (MCHC) determinationOrdered By: Jose Alberto Contreras on 11-20-2024 MCHC (RBC) [Mass/Vol] 34.7 g/dL 32-36 [facility] Mean platelet volume determi nationOrdered By: Jose Alberto Contreras on 11-20-2024 Platelet mean volume (Bld) [Entitic vol] 11.2 fL 6.2-12.0 [facility] Monocyte percentageOrdered B y: Jose Alberto Contreras on 11-20-2024 Monocytes/100 WBC (Bld) 4.4 % 0-10 [facility] Natriuretic peptide.B prohor madeleine N-Terminal [Mass/volume] in Serum or PlasmaOrdered By: Jose Alberto Contreras on 11-20-2024 Natriuretic peptide.B prohormone N-Terminal [Mass/Vol] 143 pg/mL <900 [facility] Comment on above: Heart Failure Unlike ly: < 300 pg/mLHeart Failure Likely< 50 Years: > 450 pg/mL50-75 Years: > 900 pg/mL>75 Years: > 1800 pg/mL Neutrophil percentageOrdered By: Jose Alberto Contreras on 11-20-2024 Neutrophils/100 WBC (Bld) 82.7 % High 47-70 [facility] Nucleated red blood cell per centageOrdered By: Jose Alberto Contreras on 11-20-2024 Nucleated RBC/100 WBC (Bld) [Ratio] 0 % 0-5 [facility] Platelet countOrdered By: Nola Contreras on 11-20-2024 Platelets (Bld) [#/Vol] 160 10*3/uL 150-450 [facility] Potassium measurement (mass/ volume)Ordered By: Jose Alberto Contreras on 11-20-2024 Potassium (Unsp spec) [Mass/Vol] 3.8 mmol/L 3.3-5.1 [facility] RBC Auto (Bld) [#/Vol]Ordere d By: Jose Alberto Contreras on 11-20-2024 RBC (Bld) [#/Vol] 5.19 10*6/uL 4.6-6.2 [facility] Serum creatinine measurement (mass/volume)Ordered By: Jose Alberto Contreras on 11-20-2024 Creatinine [Mass/Vol] 1.22 mg/dL High 0.70-1.20 [facility] Serum glucose measurement (m ass/volume)Ordered By: Jose Alberto Contreras on 11-20-2024 Glucose [Mass/Vol] 156 mg/dL High 70-99 [facility] Serum or plasma calcium peterson urement (mass/volume)Ordered By: Jose Alberto Contreras on 11-20-2024 Calcium [Mass/Vol] 9.2 mg/dL 7.6-11.0 [facility] Serum or plasma urea nitroge n measurement (mass/volume)Ordered By: Jose Alberto Contreras on 11-20-2024 Urea nitrogen [Mass/Vol] 23 mg/dL High 4-19 [facility] Sodium levelOrdered By: Miki Contreras on 11-20-2024 Sodium [Moles/Vol] 140 mmol/L 133-145 [facility] Troponin T.cardiac [Mass/vol ume] in Serum or Plasma by High sensitivity methodOrdered By: Jose Alberto Contreras on 11-20-2024 Troponin T.cardiac High sensitivity method [Mass/Vol] 20 ng/L <22 [facility] Troponin T.cardiac High sensitivity method [Mass/Vol] 25 ng/L High <22 [facility] White blood cell (WBC) count Ordered By: Jose Alberto Contreras on 11-20-2024 WBC (Bld) [#/Vol] 6.4 10*3/uL 4.4-11.0 [facility] CNOVon 11-18-2024 CNOV Office Visit (PERICO ) LAZARO GARZON ([id number]) 1955 M Date Time Provider Department 11/18/24 11:20 AM [facility] During your visit today, we recorded the [...] Date ADENOIDECTOMY PRIMARY Adenoidectomy COLONOSCOPY N/A 07/20/2016 [facility] [place] 01/24/2019 adenomatous colon polyps, repeat in 3 years COLONOSCOPY FLX DX W/COLLJ SPEC WHEN PFRMD 2004 Colonoscopy COLONOSCOPY FLX DX W/COLLJ SPEC WHEN PFRMD 03/07/2011 wnl EGD N/A 07/20/2016 [facility] [place] 01/24/2019 gastritis and gastric polyps ESOPHAGOGASTRODUODENOSCOPY TRANSORAL DIAGNOSTIC 05/24/2011 EGD F TRIAL SPINAL CORD STIMULATOR HEMORRHOIDECTOMY XTRNL 2/> COLUMN/GROUP 04/30/2015 KNEE SURGERY HX Right 1988 LAPS SURG CHOLECYSTECTOMY W/CHOLANGIOGRAPHY 2004 [facility] - Dr. Bales OPEN REPAIR OF ROTATOR [...] TAB T (more content not included)... Normal [facility] XR CHEST 2V FRONTAL/LATon XR [...] the spine. IMPRESSION: No acute radiographic abnormality. Auto Winder: OSMANI Transcribe Date/Time: Nov 18 2024 1:08P Dictated by : LETTY THOMAS MD This examination was interpreted and the report reviewed and electronically signed by: LETTY THOMAS MD on Nov 18 2024 1:09PM EST [id number] Normal [facility] XR Chest PA and Lateralon IMPRESSION: No acute radiographic abnormality. Auto Winder: OSMANI Transcribe Date/Time: Nov 18 2024 1:08P [...] spine. IMPRESSION IMPRESSION: No acute radiographic abnormality. Auto Winder: PSCB Transcribe Date/Time: Nov 18 2024 1:08P Dictated by : LETTY THOMAS MD This examination was interpreted and the report reviewed and electronically signed by: LETTY THOMAS MD on Nov 18 2024 1:09PM EST [facility] Radiology Study observation (narrative) [facility] XR Chest PA and LateralOrder ed By: [facility] Provider on 11-18-2024 [facility] Abdomen/Pelvis W IV Cont ONL Yon 10-28-2024 Abdomen/Pelvis W IV Cont ONLY [facility] Imaging Services [address] [place] [address] Abdomen/Pelvis W IV Cont ONLY MR#: [id number] Acct: [id number] Name: LAZARO GARZON Rep #: [id number] : 1955 M 69 From: Paul perdomo MD PCP: Dr. Jagjit Cheema MD Status: REG ER Study: Abdomen/Pelvis W IV Cont ONLY Date of Exam: Exam# [id number] Ordering Dr: Robby Mclaughlin DO PROCEDURE: ABDOMEN/PELVIS [...] lower chance of developing HCC. Reading Location: [id number] CC: Dr. Robby Mclaughlin DO; Dr. Jagjit Cheema MD Auto Winder: Signed Normal [facility] Absolute lymphocyte countOrd ered By: Robby Mclaughlin on 10-28-2024 Lymphocytes Auto (Unsp spec) [#/Vol] 0.92 10*3/uL 0.83-4.51 [facility] Absolute neutrophil countOrd ered By: Robby Mclaughlin on 10-28-2024 Neutrophils (Bld) [#/Vol] 2.8 10*3/uL 2.0-7.7 [facility] Anion gap in Serum or Plasma Ordered By: Robby Mclaughlin on 10-28-2024 Anion gap [Moles/Vol] 9 mmol/L 5- [facility] Automated lymphocyte count a s percentage of total leukocytesOrdered By: Robby Mclaughlin on 10-28-2024 Lymphocytes/100 WBC Auto (Unsp spec) 22.3 % [facility] BUN/creatinine ratioOrdered By: Robby Mclaughlin on 10-28-2024 Urea nitrogen/Creatinine [Mass ratio] 15.9 mg/mg 04-07 [facility] Basic Metabolic Profile (BMP )on 10-28-2024 BUN/CRE 15.9 RATIO Normal 04-07 [facility] Comment on above: Performed By: #### L 500.2500, L500.3400, L100.0100, L501.2450 #### [facility] [address] [place], [address] Calcium [Mass/Vol] 8.4 mg/dL Normal 7.6-11.0 [facility] Comment on above: Performed By: #### L 500.2500, L500.3400, L100.0100, L501.2450 #### [facility] [address] [place], [address] Chloride [Moles/Vol] 108 mmol/L Normal 98-108 [facility] Comment on above: Performed By: #### L 500.2500, L500.3400, L100.0100, L501.2450 #### [facility] [address] [place], [address] CO2 [Moles/Vol] 24.2 mmol/L Normal 21.0-32.0 [facility] Comment on above: Performed By: #### L 500.2500, L500.3400, L100.0100, L501.2450 #### [facility] [address] [place], [address] Creatinine [Mass/Vol] 0.93 mg/dL Normal 0.70-1.20 [facility] Comment on above: Performed By: #### L 500.2500, L500.3400, L100.0100, L501.2450 #### [facility] [address] [place], [address] ECRCL 125.79 ml/min Normal 50-250 [facility] Comment on above: Performed By: #### L 500.2500, L500.3400, L100.0100, L501.2450 #### [facility] [address] [place], [address] GAP 9 Normal 5-15 [facility] Comment on above: Performed By: #### L 500.2500, L500.3400, L100.0100, L501.2450 #### [facility] [address] [place], [address] GFR/1.73 sq M.predicted among non-blacks MDRD (S/P/Bld) [Vol rate/Area] 90 mL/min/{1.73_m2} Normal >60 [facility] Comment on above: Result Comment: mL/m in/1.73m2 CKD-EPI Creatinine Equation (2020) Performed By: #### L 500.2500, L500.3400, L100.0100, L501.2450 #### [facility] [address] [place], [address] Glucose [Mass/Vol] 119 mg/dL High 70-99 [facility] Comment on above: Performed By: #### L 500.2500, L500.3400, L100.0100, L501.2450 #### [facility] [address] [place], [address] Potassium [Moles/Vol] 3.7 mmol/L Normal 3.3-5.1 [facility] Comment on above: Performed By: #### L 500.2500, L500.3400, L100.0100, L501.2450 #### [facility] [address] [place] [place], [address] Sodium [Moles/Vol] 141 mmol/L Normal 133-145 [facility] Comment on above: Performed By: #### L 500.2500, L500.3400, L100.0100, L501.2450 #### [facility] [address] [place], [address] Urea nitrogen [Mass/Vol] 15 mg/dL Normal 4-19 [facility] Comment on above: Performed By: #### L 500.2500, L500.3400, L100.0100, L501.2450 #### [facility] [address] [place], [place], [id number] (249) Basophil percentageOrdered B y: Robby Mclaughlin on 10-28-2024 Basophils/100 WBC (Bld) 0.5 % 0-1 [facility] Bilirubin Test strip Ql (U)O rdered By: Robby Mclaughlin on 10-28-2024 Bilirubin Ql (U) Negative Negative [facility] Bilirubin directOrdered By: Robby Mclaughlin on 10-28-2024 Bilirubin.direct [Mass/Vol] 0.25 mg/dL 0.00-0.30 [facility] Bilirubin, totalOrdered By: Robby Mclaughlin on 10-28-2024 Bilirubin [Mass/Vol] 0.62 mg/dL 0.00-1.30 [facility] CBC W/Diff, Automatedon 10-17 Absolute Lymph 0.92 X10 3/uL Normal 0.83-4.51 [facility] Comment on above: Performed By: #### L 500.2500, L500.3400, L100.0100, L501.2450 #### [facility] [address] [place], [address] Absolute Neut 2.8 X10 3/uL Normal 2.0-7.7 [facility] Comment on above: Performed By: #### L 500.2500, L500.3400, L100.0100, L501.2450 #### [facility] [address] [place], [address] Basophils/100 WBC (Bld) 0.5 % Normal 0-1 [facility] Comment on above: Performed By: #### L 500.2500, L500.3400, L100.0100, L501.2450 #### [facility] [address] [place], [address] Eosinophils/100 WBC (Bld) 1.2 % Normal 0-5 [facility] Comment on above: Performed By: #### L 500.2500, L500.3400, L100.0100, L501.2450 #### [facility] [address] [facility] [place], [address] Erythrocyte distribution width (RBC) [Ratio] 14.2 % Normal 11.6-14.6 [facility] Comment on above: Performed By: #### L 500.2500, L500.3400, L100.0100, L501.2450 #### [facility] [address] [place], [address] Hematocrit (Bld) [Volume fraction] 40.7 % Normal 40-54 [facility] Comment on above: Performed By: #### L 500.2500, L500.3400, L100.0100, L501.2450 #### [facility] [address] [place], [address] Hemoglobin (Bld) [Mass/Vol] 14.1 g/dL Normal 13.0-16.5 [facility] Comment on above: Performed By: #### L 500.2500, L500.3400, L100.0100, L501.2450 #### [facility] [address] [place], [address] IG% 0.200 Normal 0.0-0.9 [facility] Comment on above: Result Comment: IG% - Immature Granulocytes (promyelocytes, myelocytes and metamyelocytes) > 1% indicates that a LEFT SHIFT is Present. Performed By: #### L 500.2500, L500.3400, L100.0100, L501.2450 #### [facility] [address] [place], [address] Lymphocytes/100 WBC (Bld) 22.3 % Normal 19-41 [facility] Comment on above: Performed By: #### L 500.2500, L500.3400, L100.0100, L501.2450 #### [facility] [address] [place], [address] MCH (RBC) [Entitic mass] 29.7 pg Normal 27.0-32.0 [facility] Comment on above: Performed By: #### L 500.2500, L500.3400, L100.0100, L501.2450 #### [facility] [address] [place], [address] MCHC (RBC) [Mass/Vol] 34.6 g/dL Normal 32-36 [facility] Comment on above: Performed By: #### L 500.2500, L500.3400, L100.0100, L501.2450 #### [facility] [address] [place], [address] MCV (RBC) [Entitic vol] 85.7 fL Normal 80-94 [facility] Comment on above: Performed By: #### L 500.2500, L500.3400, L100.0100, L501.2450 #### [facility] [address] [place], [address] Monocytes/100 WBC (Bld) 8.3 % Normal 0-10 [facility] Comment on above: Performed By: #### L 500.2500, L500.3400, L100.0100, L501.2450 #### [facility] [address] [place], [address] Neutrophils/100 WBC (Bld) 67.5 % Normal 47-70 [facility] Comment on above: Performed By: #### L 500.2500, L500.3400, L100.0100, L501.2450 #### [facility] [address] [place], [address] Nucleated RBC (Bld) [#/Vol] 0 10*3/uL Normal 0-5 [facility] Comment on above: Performed By: #### L 500.2500, L500.3400, L100.0100, L501.2450 #### [facility] [address] [place], [address] Platelet mean volume (Bld) [Entitic vol] 10.7 fL Normal 6.2-12.0 [facility] Comment on above: Performed By: #### L 500.2500, L500.3400, L100.0100, L501.2450 #### [facility] [address] [place], [address] Platelets (Bld) [#/Vol] 147 10*3/uL Low 150-450 [facility] Comment on above: Performed By: #### L 500.2500, L500.3400, L100.0100, L501.2450 #### [facility] [address] [place], [address] RBC (Bld) [#/Vol] 4.75 10*6/uL Normal 4.6-6.2 [facility] Comment on above: Performed By: #### L 500.2500, L500.3400, L100.0100, L501.2450 #### [facility] [address] [place], [address] RDW SD 43.7 fl Normal 35.1-43.9 [facility] Comment on above: Performed By: #### L 500.2500, L500.3400, L100.0100, L501.2450 #### [facility] [address] [place], [address] WBC (Bld) [#/Vol] 4.1 10*3/uL Low 4.4-11.0 [facility] Comment on above: Performed By: #### L 500.2500, L500.3400, L100.0100, L501.2450 #### [facility] [address] [place], [address] Carbon dioxide, total [Moles /volume] in Central venous bloodOrdered By: Robby Mclaughlin on 10-28-2024 CO2 [Moles/Vol] 24.2 mmol/L 21.0-32.0 [facility] Chloride assayOrdered By: Babak Mclaughlin on 10-28-2024 Chloride [Moles/Vol] 108 mmol/L 98-108 [facility] Emergency Department Summary on 10-28-2024 Emergency Department Summary [facility] Medical Records Department [address] [place] [address] Emergency Department Summary 10/28/24 MR#: [id number] Acct: [id number] Name: LAZARO GARZON Rep #: [id number] : 1955 69 From: Robby Mclaughlin DO [...] had a colonoscopy in the past at [place] facility. He states he has a history of diverticulosis. He is not currently on blood thinners does take baby aspirin. [facility] Medical History History of cardioversion First [...] disease) Essential hypertension Atherosclerotic heart disease of [place] coronary artery without angina pectoris Confusion Unstable [...] caffeine: Yes (more content not included)... Normal [facility] Eosinophil percentageOrdered By: Robby Mclaughlin on 10-28-2024 Eosinophils/100 WBC (Bld) 1.2 % 0-5 [facility] Erythrocyte distribution wid th ratioOrdered By: Robby Mclaughlin on 10-28-2024 Erythrocyte distribution width (RBC) [Ratio] 14.2 % 11.6-14.6 [facility] Erythrocyte distribution wid th standard deviationOrdered By: Robby Mclaughlin on 10-28-2024 Erythrocyte distribution width (RBC) [Ratio] 43.7 fl 35.1-43.9 [facility] Glomerular filtration rate ( GFR) estimation/1.73 sq m using serum, plasma, or whole bOrdered By: Robby Mclaughlin on 10-28-2024 GFR/1.73 sq M.predicted among non-blacks MDRD (S/P/Bld) [Vol rate/Area] 90 mL/min/{1.73_m2} >60 [facility] Comment on above: mL/min/1.73m2 CKD-EP I Creatinine Equation (2020) Hematocrit Auto (Bld) [Volum e fraction]Ordered By: Robby Mclaughlin on 10-28-2024 Hematocrit (Bld) [Volume fraction] 40.7 % 40-54 [facility] Hemoglobin measurementOrdere d By: Robby Mclaughlin on 10-28-2024 Hemoglobin (Bld) [Mass/Vol] 14.1 g/dL 13.0-16.5 [facility] Immature granulocytes/100 WB C Auto (Bld)Ordered By: Robby Mclaughlin on 10-28-2024 Immature granulocytes/100 WBC (Bld) 0.200 % 0.0-0.9 [facility] Comment on above: IG% - Immature Granu locytes (promyelocytes, myelocytes and metamyelocytes) > 1% indicates that a LEFT SHIFT is Present. Ketones Test strip Ql (U)Ord ered By: Robby Mclaughlin on 10-28-2024 Ketones Ql (U) Negative Negative [facility] - Chemistry and C hemistry - challengeOrdered By: Robby Mclaughlin on 10-28-2024 AST [Catalytic activity/Vol] 30 U/L <38 [facility] Lipaseon 10-28-2024 Lipase [Catalytic activity/Vol] 33 U/L Normal 13-75 [facility] Comment on above: Result Comment: Plea note: LIPASE revised reference range effective 22. New Lipase methodology. Expected to produce lower values than the previous assay method. NEW Reference Range: 13 - 75 U/L Performed By: #### L 100.0100, L500.2500 #### [facility] [place], [address] Lipase measurementOrdered By : Robby Mclaughlin on 10-28-2024 Lipase [Catalytic activity/Vol] 33 U/L 13-75 [facility] Comment on above: Please note:LIPASE r evised reference range effective 22. New Lipase methodology. Expected to produce lower values than the previous assay method. NEW Reference Range: 13 - 75 U/L Liver Profileon 10-28-2024 Albumin [Mass/Vol] 4.1 g/dL Normal 3.4-4.8 [facility] Comment on above: Performed By: #### L 500.2500, L500.3400, L100.0100, L501.2450 #### [facility] [address] [place], [address] ALK PHOS 67 U/L Normal 40-129 [facility] Comment on above: Performed By: #### L 500.2500, L500.3400, L100.0100, L501.2450 #### [facility] [address] [place], [address] ALT [Catalytic activity/Vol] 36 U/L Normal <=46 [facility] Comment on above: Performed By: #### L 500.2500, L500.3400, L100.0100, L501.2450 #### [facility] [address] [place], [address] AST [Catalytic activity/Vol] 30 U/L Normal <=37 [facility] Comment on above: Performed By: #### L 500.2500, L500.3400, L100.0100, L501.2450 #### [facility] [address] [place], [address] Bilirubin [Mass/Vol] 0.62 mg/dL Normal 0.00-1.30 [facility] Comment on above: Performed By: #### L 500.2500, L500.3400, L100.0100, L501.2450 #### [facility] [address] [place], [address] Bilirubin.direct [Mass/Vol] 0.25 mg/dL Normal 0.00-0.30 [facility] Comment on above: Performed By: #### L 500.2500, L500.3400, L100.0100, L501.2450 #### [facility] [address] [place], [address] Globulin (S) [Mass/Vol] 2.5 g/dL Normal 2.2-4.2 [facility] Comment on above: Performed By: #### L 500.2500, L500.3400, L100.0100, L501.2450 #### [facility] [address] [place], [address] T PROT 6.6 g/dL Normal 5.9-8.4 [facility] Comment on above: Performed By: #### L 500.2500, L500.3400, L100.0100, L501.2450 #### [facility] [address] [place], [address] MCV (mean corpuscular volume ) determinationOrdered By: Robby Mclaughlin on 10-28-2024 MCV (RBC) [Entitic vol] 85.7 fL 80-94 [facility] Mean corpuscular hemoglobin (MCH) determinationOrdered By: Robby Mclaughlin on 10-28-2024 MCH (RBC) [Entitic mass] 29.7 pg 27.0-32.0 [facility] Mean corpuscular hemoglobin concentration (MCHC) determinationOrdered By: Robby Mclaughlin on 10-28-2024 MCHC (RBC) [Mass/Vol] 34.6 g/dL 32-36 [facility] Mean platelet volume determi nationOrdered By: Robby Mclaughlin on 10-28-2024 Platelet mean volume (Bld) [Entitic vol] 10.7 fL 6.2-12.0 [facility] Microscopic analysis of urin e for red blood cells (RBC)Ordered By: Robby Mclaughlin on 10-28-2024 Microscopic analysis of urine for red blood cells (RBC) 0 SEEN /hpf 0-5 [facility] Monocyte percentageOrdered B y: Robby Mclaughlin on 10-28-2024 Monocytes/100 WBC (Bld) 8.3 % 0-10 [facility] Mucus LM Ql (Urine sed)Order ed By: Robby Mclaughlin on 10-28-2024 Mucus Ql (Urine sed) 0 SEEN /hpf [facility] Neutrophil percentageOrdered By: Robby Mclaughlin on 10-28-2024 Neutrophils/100 WBC (Bld) 67.5 % 47-70 [facility] Nitrite Test strip Ql (U)Ord ered By: Robby Mclaughlin on 10-28-2024 Nitrite Ql (U) Negative Negative [facility] Nucleated red blood cell per centageOrdered By: Robby Mclaughlin on 10-28-2024 Nucleated RBC/100 WBC (Bld) [Ratio] 0 % 0-5 [facility] Platelet countOrdered By: Babak Mclaughlin on 10-28-2024 Platelets (Bld) [#/Vol] 147 10*3/uL Low 150-450 [facility] Potassium measurement (mass/ volume)Ordered By: Robby Mclaughlin on 10-28-2024 Potassium (Unsp spec) [Mass/Vol] 3.7 mmol/L 3.3-5.1 [facility] Protein Test strip Ql (U)Ord ered By: Robby Mclaughlin on 10-28-2024 Protein Ql (U) 15 mg/dl High Negative [facility] RBC Auto (Bld) [#/Vol]Ordere d By: Robby Mclaughlin on 10-28-2024 RBC (Bld) [#/Vol] 4.75 10*6/uL 4.6-6.2 [facility] Serum creatinine measurement (mass/volume)Ordered By: Robby Mclaughlin on 10-28-2024 Creatinine [Mass/Vol] 0.93 mg/dL 0.70-1.20 [facility] Serum globulin measurementOr dered By: Robby Mclaughlin on 10-28-2024 Globulin (S) [Mass/Vol] 2.5 g/dL 2.2-4.2 [facility] Serum glucose measurement (m ass/volume)Ordered By: Robby Mclaughlin on 10-28-2024 Glucose [Mass/Vol] 119 mg/dL High 70-99 [facility] Serum or plasma alanine fuchs otransferase (ALT) measurementOrdered By: Robby Mclaughlin on 10-28-2024 ALT [Catalytic activity/Vol] 36 U/L <47 [facility] Serum or plasma albumin peterson urement (mass/volume)Ordered By: Robby Mclaughlin on 10-28-2024 Albumin [Mass/Vol] 4.1 g/dL 3.4-4.8 [facility] Serum or plasma alkaline miki sphatase measurementOrdered By: Robby Mclaughlin on 10-28-2024 ALP [Catalytic activity/Vol] 67 U/L 40-129 [facility] Serum or plasma calcium peterson urement (mass/volume)Ordered By: Robby Mclaughlin on 10-28-2024 Calcium [Mass/Vol] 8.4 mg/dL 7.6-11.0 [facility] Serum or plasma urea nitroge n measurement (mass/volume)Ordered By: Robby Mclaughlin on 10-28-2024 Urea nitrogen [Mass/Vol] 15 mg/dL 4-19 [facility] Sodium levelOrdered By: Gerald Mclaughlin on 10-28-2024 Sodium [Moles/Vol] 141 mmol/L 133-145 [facility] Squamous epithelial cells de tection in urine sediment by light microscopyOrdered By: Robby Mclaughlin on 10-28-2024 Epithelial cells.squamous LM Ql (Urine sed) 0-5 SEEN /hpf 0-5 [facility] Total proteinOrdered By: Ramsey Mclaughlin on 10-28-2024 Protein [Mass/Vol] 6.6 g/dL 5.9-8.4 [facility] Urinalysis, Completeon 10-28 EPI,SQUAMOUS 0-5 SEEN Normal 0-5 [facility] Comment on above: Order Comment: LUCILLE CTOR TO SPECIFY Performed By: #### L 400.0001 #### [facility] [address] [place], [place], [address] BACTERIA 0 SEEN Normal None Seen [facility] Comment on above: Order Comment: LUCILLE CTOR TO SPECIFY Performed By: #### L 400.0001 #### [facility] [address] [place], [address] Mucus Ql (Urine sed) 0 SEEN Normal [facility] Comment on above: Order Comment: LUCILLE CTOR TO SPECIFY Performed By: #### L 400.0001 #### [facility] [address] [place], [address] RBC 0 SEEN Normal 0-5 [facility] Comment on above: Order Comment: LUCILLE CTOR TO SPECIFY Performed By: #### L 400.0001 #### [facility] [address] [place], [address] WBC 0 SEEN Normal 0-5 [facility] Comment on above: Order Comment: LUCILLE CTOR TO SPECIFY Performed By: #### L 400.0001 #### [facility] [address] [place], [place], [address] Urine clarityOrdered By: Ramsey Mclaughlin on 10-28-2024 Clarity (U) Clear Clear [facility] Urine color determinationOrd ered By: Robby Mclaughlin on 10-28-2024 Color (U) Yellow Yellow [facility] Urine glucose detectionOrder ed By: Robby Mclaughlin on 10-28-2024 Glucose Ql (U) Normal mg/dl Normal [facility] Urine leukocyte esterase det ection by dipstickOrdered By: Robby Mclaughlin on 10-28-2024 Leukocyte esterase Test strip Ql (U) Negative Negative [facility] Urine pHOrdered By: Robby woodard on 10-28-2024 pH (U) 7.0 [pH] 5.0 - 8.0 [facility] Urine sediment bacteria coun t by microscopy (number/high power field)Ordered By: Robby Mclaughlin on 10-28-2024 Bacteria LM.HPF (Urine sed) [#/Area] 0 /[HPF] None Seen [facility] Urine specific gravity measu rementOrdered By: Robby Mclaughlin on 10-28-2024 Specific gravity (U) [Rel density] 1.010 1.002-1.03 0 [facility] Urine urobilinogen measureme ntOrdered By: Robby Mclaughlin on 10-28-2024 Urobilinogen Ql (U) Normal mg/dl Normal [facility] White blood cell (WBC) count Ordered By: Robby Mclaughlin on 10-28-2024 WBC (Bld) [#/Vol] 4.1 10*3/uL Low 4.4-11.0 [facility] White blood cell countOrdere d By: Robby Mclaughlin on 10-28-2024 White blood cell count 0 SEEN /hpf 0-5 [facility] CNOVon 10-21-2024 CN [facility] LAZARO GARZON ([id number]) 1955 M Date Time Provider Department 10/21/24 9:00 AM JAGJIT CHEEMA [facility] During your visit today, we recorded [...] was copied and pasted, without alteration from [facility]: Asked him to come back because he [...] Lymph 1.00 - 4.00 k/uL 0.91 (L) [place]% % 9.0 Abs [place] <0.87 k/uL 0.40 Eosin% % 1.4 Abs [...] Pulmonary embolis (more content not included)... Normal [facility] Platelets Auto (Bld) [#/Vol] on 10-18-2024 Platelets (Bld) [#/Vol] 136 10*3/uL Low 150-400 [facility] Comment on above: Order Comment: Speci men Type: BLOOD SPECIMENOrdering Facility: [facility] Address: [address] [place] [address] Performed By: #### 7 77-3 ####[facility] LABCLIA [id number] [address] Wade 09-27-2024 CNPN Telephone (INTMWS) LAZARO GARZON ([id number]) 1955 M Date Time Provider Department 09/27/24 [...] Date Reviewed: 09/23/2024 Reviewed by: Runkle, Brandie, TOOTH CUTTER CLUTCH - Fully Assessed Reason for Visit: Medication [...] of i (more content not included)... Normal [facility] CNOVon 09-23-2024 CNOV Office Visit (FAMPWS ) LAZARO GARZON ([id number]) 1955 M Date Time Provider Department 09/23/24 [...] Right 1988 LAPS SURG CHOLECYSTECTOMY W/CHOLANGIOGRAPHY 2004 [facility] - Dr. 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 EPIGASTRIC HERNIA,REDUC 07/19/2023 umbilical TONSILLECTOMY PRIMARY/SECONDARY Tonsillectomy FAMILY HISTORY Problem Relation Age of Onset Hypertension Mother Heart Mother Stroke Mother Allergies Mother Breast Cancer Mother Heart Father of [place] Allergies Father Asthma Daughter Allergies Sister Allergies [...] Used Substan (more content not included)... Normal [facility] Wade 09-19-2024 ILYA Telephone (PUMBHT) DURANLAZARO Trujillo ([id number]) 1955 M Date Time Provider Department 09/19/24 [...] [R53.83] 10/30/2013 (more content not included)... Normal [facility] CBC W Auto Differential pane l (Bld)on 09-17-2024 Basophils (Bld) [#/Vol] 0.03 10*3/uL Normal <0.11 [facility] Comment on above: Order Comment: Speci men Type: BLOOD SPECIMENOrdering Facility: [facility] Address: [address] [place] [address] Performed By: #### 5 7021-8, 4536-7 ####[facility] LABCLIA [id number] [place] [address] [place] Basophils/100 WBC (Bld) 0.7 % Normal [facility] Comment on above: Order Comment: Speci men Type: BLOOD SPECIMENOrdering Facility: [facility] Address: [address] [place] [address] Performed By: #### 5 7021-8, 4536-7 ####[facility] LABCLIA [id number] [place] [address] [place] Differential cell count method Nom (Bld) Auto Normal [facility] Comment on above: Order Comment: Speci men Type: BLOOD SPECIMENOrdering Facility: [facility] Address: [address] [place] [address] Performed By: #### 5 7021-8, 4536-7 ####[facility] LABCLIA [id number] [place] [address] [place] Eosinophils (Bld) [#/Vol] 0.06 10*3/uL Normal <0.46 [facility] Comment on above: Order Comment: Speci men Type: BLOOD SPECIMENOrdering Facility: [facility] Address: [address] [place] [address] Performed By: #### 5 7021-8, 7-7 ####[facility] LABCLIA [id number] [place] [address] [place] Eosinophils/100 WBC (Bld) 1.4 % Normal [facility] Comment on above: Order Comment: Speci men Type: BLOOD SPECIMENOrdering Facility: [facility] Address: [address] [place] [address] Performed By: #### 5 7021-8, 7-7 ####[facility] LABCLIA [id number] [place] [address] [place] Erythrocyte distribution width (RBC) [Ratio] 13.4 % Normal 11.5-15.0 [facility] Comment on above: Order Comment: Speci men Type: BLOOD SPECIMENOrdering Facility: [facility] Address: [address] [place] [address] Performed By: #### 5 7021-8, 4537-7 ####[facility] LABCLIA [id number] [place] [address] [place] Hematocrit (Bld) [Volume fraction] 46.8 % Normal 39.0-51.0 [facility] Comment on above: Order Comment: Speci men Type: BLOOD SPECIMENOrdering Facility: [facility] Address: [address] [place] [address] Performed By: #### 5 7021-8, 4536-7 ####[facility] LABIA [id number] [place] [address] [place] Hemoglobin (Bld) [Mass/Vol] 15.6 g/dL Normal 13.0-17.0 [facility] Comment on above: Order Comment: Speci men Type: BLOOD SPECIMENOrdering Facility: [facility] Address: [address] [place] [address] Performed By: #### 5 7021-8, 7-7 ####[facility] LABCLIA [id number] [facility] [place] [address] [place] Immature granulocytes (Bld) [#/Vol] 10*3/uL Normal <0.10 [facility] Comment on above: Order Comment: Speci men Type: BLOOD SPECIMENOrdering Facility: [facility] Address: [address] [place] [address] Performed By: #### 5 7021-8, 4536-7 ####[facility] LABCLIA [id number] [place] [address] [place] Immature granulocytes/100 WBC (Bld) 0.2 % Normal [facility] Comment on above: Order Comment: Speci men Type: BLOOD SPECIMENOrdering Facility: [facility] Address: [address] [place] [address] Performed By: #### 5 7021-8, 7 ####[facility] LABCLIA [id number] [place] [address] [place] Lymphocytes (Bld) [#/Vol] 0.91 10*3/uL Low 1.00-4.00 [facility] Comment on above: Order Comment: Speci men Type: BLOOD SPECIMENOrdering Facility: [facility] Address: [address] [place] [address] Performed By: #### 5 7021-8, 7 ####[facility] LABIA [id number] [place] [address] [place] Lymphocytes/100 WBC (Bld) 20.5 % Normal [facility] Comment on above: Order Comment: Speci men Type: BLOOD SPECIMENOrdering Facility: [facility] Address: [address] [place] [address] Performed By: #### 5 7021-8, 4536-7 ####[facility] LABCLIA [id number] [place] [address] [place] MCH (RBC) [Entitic mass] 28.6 pg Normal 26.0-34.0 [facility] Comment on above: Order Comment: Speci men Type: BLOOD SPECIMENOrdering Facility: [facility] Address: [address] [place] [address] Performed By: #### 5 7021-8, 4536-7 ####[facility] LABCLIA [id number] [place] [address] [place] MCHC (RBC) [Mass/Vol] 33.3 g/dL Normal 30.5-36.0 [facility] Comment on above: Order Comment: Speci men Type: BLOOD SPECIMENOrdering Facility: [facility] Address: [address] [place] [address] Performed By: #### 5 7021-8, 4536-7 ####[facility] LABIA [id number] [place] [address] [place] MCV (RBC) [Entitic vol] 85.7 fL Normal 80.0-100.0 [facility] Comment on above: Order Comment: Speci men Type: BLOOD SPECIMENOrdering Facility: [facility] Address: [address] [place] [address] Performed By: #### 5 7021-8, 7 ####[facility] LABIA [id number] [place] [address] [place] Monocytes (Bld) [#/Vol] 0.40 10*3/uL Normal <0.87 [facility] Comment on above: Order Comment: Speci men Type: BLOOD SPECIMENOrdering Facility: [facility] Address: [address] [place] [address] Performed By: #### 5 7021-8, 7 ####[facility] LABIA [id number] [place] [address] [place] Monocytes/100 WBC (Bld) 9.0 % Normal [facility] Comment on above: Order Comment: Speci men Type: BLOOD SPECIMENOrdering Facility: [facility] Address: [address] [place] [address] Performed By: #### 5 7021-8, 4536-7 ####[facility] LABCLIA [id number] [place] [address] [place] Neutrophils (Bld) [#/Vol] 3.02 10*3/uL Normal 1.45-7.50 [facility] Comment on above: Order Comment: Speci men Type: BLOOD SPECIMENOrdering Facility: [facility] Address: [address] [place] [address] Performed By: #### 5 7021-8, 4537-7 ####[facility] LABCLIA [id number] [place] [address] [place] Neutrophils/100 WBC (Bld) 68.2 % Normal [facility] Comment on above: Order Comment: Speci men Type: BLOOD SPECIMENOrdering Facility: [facility] Address: [address] [place] [address] Performed By: #### 5 7021-8, 4537-7 ####[facility] LABCLIA [id number] [place] [address] [place] Nucleated RBC (Bld) [#/Vol] 10*3/uL Normal <0.01 [facility] Comment on above: Order Comment: Speci men Type: BLOOD SPECIMENOrdering Facility: [facility] Address: [address] [place] [address] Performed By: #### 5 7021-8, 4537-7 ####[facility] LABIA [id number] [place] [address] [place] Nucleated RBC/100 WBC (Bld) [Ratio] 0.0 /100 WBC Normal [facility] Comment on above: Order Comment: Speci men Type: BLOOD SPECIMENOrdering Facility: [facility] Address: [address] [place] [address] Performed By: #### 5 7021-8, 4537-7 ####[facility] LABCLIA [id number] [place] [address] [place] Platelet mean volume (Bld) [Entitic vol] 11.7 fL Normal 9.0-12.7 [facility] Comment on above: Order Comment: Speci men Type: BLOOD SPECIMENOrdering Facility: [facility] Address: [address] [place] [address] Performed By: #### 5 7021-8, 4537-7 ####[facility] LABCLIA [id number] [place] [address] [place] Platelets (Bld) [#/Vol] 143 10*3/uL Low 150-400 [facility] Comment on above: Order Comment: Speci men Type: BLOOD SPECIMENOrdering Facility: [facility] Address: [address] [place] [address] Performed By: #### 5 7021-8, 4537-7 ####[facility] LABCLIA [id number] [place] [address] [place] RBC (Bld) [#/Vol] 5.46 10*6/uL Normal 4.20-6.00 [facility] Comment on above: Order Comment: Speci men Type: BLOOD SPECIMENOrdering Facility: [facility] Address: [address] [place] [address] Performed By: #### 5 7021-8, 4537-7 ####[facility] LABCLIA [id number] [place] [address] [place] WBC (Bld) [#/Vol] 4.43 10*3/uL Normal 3.70-11.00 [facility] Comment on above: Order Comment: Speci men Type: BLOOD SPECIMENOrdering Facility: [facility] Address: [address] [place] [address] Performed By: #### 5 7021-8, 4537-7 ####[facility] LABCLIA [id number] [facility] [address] [place] [address] [place] Comprehensive metabolic 2000 panelon 09-17-2024 Albumin [Mass/Vol] 4.4 g/dL Normal 3.9-4.9 [facility] Comment on above: Order Comment: Speci men Type: BLOOD SPECIMENOrdering Facility: [facility] Address: [address] [place] [address] Performed By: #### 2 4323-8, T4FTI, 56664-6 ####[facility] LABCLIA [id number] [place] [address] [place] ALP [Catalytic activity/Vol] 71 U/L Normal 38-113 [facility] Comment on above: Order Comment: Speci men Type: BLOOD SPECIMENOrdering Facility: [facility] Address: [address] [place] [address] Performed By: #### 2 4323-8, T4FTI, 42841-2 ####[facility] LABCLIA [id number] [place] [address] [place] ALT [Catalytic activity/Vol] 31 U/L Normal 10-54 [facility] Comment on above: Order Comment: Speci men Type: BLOOD SPECIMENOrdering Facility: [facility] Address: [address] [place] [address] Performed By: #### 2 4323-8, T4FTI, 96011-1 ####[facility] LABCLIA [id number] [place] [address] [place] Anion gap [Moles/Vol] 13 mmol/L Normal 8-15 [facility] Comment on above: Order Comment: Speci men Type: BLOOD SPECIMENOrdering Facility: [facility] Address: [address] [place] [address] Performed By: #### 2 4323-8, T4FTI, 15330-0 ####[facility] LABCLIA [id number] [place] [address] [place] AST [Catalytic activity/Vol] 25 U/L Normal 14-40 [facility] Comment on above: Order Comment: Speci men Type: BLOOD SPECIMENOrdering Facility: [facility] Address: [address] [place] [address] Performed By: #### 2 4323-8, T4FTI, 83638-6 ####[facility] LABCLIA [id number] [place] [address] [place] Bilirubin [Mass/Vol] 1.0 mg/dL Normal 0.2-1.3 [facility] Comment on above: Order Comment: Speci men Type: BLOOD SPECIMENOrdering Facility: [facility] Address: [address] [place] [address] Performed By: #### 2 4323-8, T4FTI, 58121-4 ####[facility] LABCLIA [id number] [place] [address] [place] Calcium [Mass/Vol] 9.7 mg/dL Normal 8.5-10.2 [facility] Comment on above: Order Comment: Speci men Type: BLOOD SPECIMENOrdering Facility: [facility] Address: [address] [place] [address] Performed By: #### 2 4323-8, T4FTI, 97208-7 ####[facility] LABCLIA [id number] [place] [address] [place] Chloride [Moles/Vol] 104 mmol/L Normal 98-107 [facility] Comment on above: Order Comment: Speci men Type: BLOOD SPECIMENOrdering Facility: [facility] Address: [address] [place] [address] Performed By: #### 2 4323-8, T4FTI, 42243-0 ####[facility] LABCLIA [id number] [place] [address] [place] CO2 [Moles/Vol] 24 mmol/L Normal 22-30 [facility] Comment on above: Order Comment: Speci men Type: BLOOD SPECIMENOrdering Facility: [facility] Address: [address] [place], [place] [address] Performed By: #### 2 4323-8, T4, ####[facility] LABCLIA [id number] [place] [address] [place] Creatinine [Mass/Vol] 1.00 mg/dL Normal 0.73-1.22 [facility] Comment on above: Order Comment: Dunia peters Type: BLOOD SPECIMENOrdering Facility: [facility] Address: [address] [place] [address] Performed By: #### 2 4323-8, T4, 53480-2 ####[facility] LABIA [id number] [place] [address] [place] Creatinine and Glomerular filtration rate.predicted panel (S/P/Bld) 83 mL/min/1.73m??? Normal >=60 [facility] Comment on above: Order Comment: Dunia peters Type: BLOOD SPECIMENOrdering Facility: [facility] Address: [address] [place] [address] Result Comment: Jayshree mated Glomerular Filtration Rate [...] GFR. Performed By: #### 2 4323-8, T4, ####[facility] LABIA [id number] [address] [address] [place] Glucose [Mass/Vol] 117 mg/dL High 74-99 [facility] Comment on above: Order Comment: Dunia peters Type: BLOOD SPECIMENOrdering Facility: [facility] Address: [address] [place] [address] Result Comment: The [place] Diabetes Association (ADA) provides guidance for cutoff [...] Standards of Medical Care in Diabetes 2016, [place] [employer]. Diabetes Care. 2016.39(Suppl 1). Performed By: #### 2 432-8, T4FTI, 44969-3 ####[facility] LABCLIA [id number] [place] [address] [place] Potassium [Moles/Vol] 4.1 mmol/L Normal 3.7-5.1 [facility] Comment on above: Order Comment: Speci men Type: BLOOD SPECIMENOrdering Facility: [facility] Address: [address] [place] [address] Performed By: #### 2 4328, T4FT, ####[facility] LABCLIA [id number] [place] [address] [place] Protein [Mass/Vol] 7.4 g/dL Normal 6.3-8.0 [facility] Comment on above: Order Comment: Speci men Type: BLOOD SPECIMENOrdering Facility: [facility] Address: [address] [place] [address] Performed By: #### 2 432-8, T4FT, ####[facility] LABCLIA [id number] [place] [address] [place] Sodium [Moles/Vol] 141 mmol/L Normal 136-144 [facility] Comment on above: Order Comment: Speci men Type: BLOOD SPECIMENOrdering Facility: [facility] Address: [address] [place] [address] Performed By: #### 2 4323-8, T4FTI, 55423-2 ####[facility] LABCLIA [id number] [place] [address] [place] Urea nitrogen [Mass/Vol] 12 mg/dL Normal 9-24 [facility] Comment on above: Order Comment: Speci men Type: BLOOD SPECIMENOrdering Facility: [facility] Address: [address] [place] [address] Performed By: #### 2 4323-8, T4FTI, 46257-7 ####[facility] LABCLIA [id number] [place] [address] [place] ESR Westergren method (Bld) [Velocity]on 09-17-2024 ESR (Bld) [Velocity] 16 mm/h High 0-15 [facility] Comment on above: Order Comment: Speci men Type: BLOOD SPECIMENOrdering Facility: [facility] Address: [address] [place] [address] Performed By: #### 5 7021-8, 4537-7 ####[facility] LABIA [id number] [place] [address] [place] Lipid 1996 panelon 5 Cholesterol [Mass/Vol] 134 mg/dL Normal <200 [facility] Comment on above: Order Comment: Speci men Type: BLOOD SPECIMENOrdering Facility: [facility] Address: [address] [place] [address] Result Comment: <200 mg/dL, Desirable 200-239 mg/dL, Borderline high >239 mg/dL, High Performed By: #### 2 4323-8, T4FTI, 56438-3 ####[facility] LABIA [id number] [place] [address] [place] Cholesterol in HDL [Mass/Vol] 30 mg/dL Low >39 [facility] Comment on above: Order Comment: Speci men Type: BLOOD SPECIMENOrdering Facility: [facility] Address: [address] [place] [address] Result Comment: 40-5 9 mg/dL, Acceptable >59 mg/dL, High: Negative risk factor for coronary heart disease <40 mg/dL, Low: Positive risk factor for coronary heart disease Performed By: #### 2 4323-8, T4FT, ####[facility] LABCLIA [id number] [address] [address] [place] Cholesterol in LDL [Mass/Vol] 46 mg/dL Normal <100 [facility] Comment on above: Order Comment: Speci men Type: BLOOD SPECIMENOrdering Facility: [facility] Address: [address] [place] [address] Result Comment: <100 mg/dL, Optimal 100-129 mg/dL, Near optimal/above optimal 130-159 mg/dL, Borderline high 160-189 mg/dL, High >189 mg/dL, Very high Secondary prevention optimal LDL Cholesterol levels are recommended to be < 70 mg/dL Performed By: #### 2 4323-8, T4, ####[facility] LABCLIA [id number] [address] [place] Cholesterol in LDL/Cholesterol in HDL [Mass ratio] 1.53 {ratio} Normal <2.54 [facility] Comment on above: Order Comment: Paragi men Type: BLOOD SPECIMENOrdering Facility: [facility] Address: [address] [place] [address] Result Comment: Refe rence: 1. National Cholesterol Education Program ATP III Guideline At-A-Glance Quick Desk Reference: National Heart, Lung, and Blood [place]. National Institutes of Health. 2001: NIH Publication No. 01-3305. 2. An International Atherosclerosis Society position paper: global recommendations for the management of dyslipidemia: executive summary, Atherosclerosis. 2014: 232(2):410-413. Performed By: #### 2 4323-8, T4FTI, ####[facility] LABCLIA [id number] [address] [place] Cholesterol in VLDL [Mass/Vol] 58 mg/dL High <30 [facility] Comment on above: Order Comment: Speci men Type: BLOOD SPECIMENOrdering Facility: [facility] Address: [address] [place], [place] [address] Performed By: #### 2 432-8, T4FT, ####[facility] LABCLIA [id number] [address] [place] [address] [place] Cholesterol non HDL [Mass/Vol] 104 mg/dL Normal <130 [facility] Comment on above: Order Comment: Speci men Type: BLOOD SPECIMENOrdering Facility: [facility] Address: [address] [place] [address] Result Comment: <130 mg/dL, Optimal 130-159 mg/dL, Near optimal/above optimal 160-189 mg/dL, Borderline high 190-219 mg/dL, High >219 mg/dL, Very high Secondary prevention optimal non HDL Cholesterol levels are recommended to be <100 mg/dL Performed By: #### 2 4328, T4, ####[facility] LABCLIA [id number] [address] [address] [place] Cholesterol.total/Cho lesterol in HDL [Mass ratio] 4.47 {ratio} Normal <5.10 [facility] Comment on above: Order Comment: Speci men Type: BLOOD SPECIMENOrdering Facility: [facility] Address: [address] [place] [address] Performed By: #### 2 4323-8, T4, ####[facility] LABCLIA [id number] [address] [place] [address] [place] FASTING TIME 12 hrs Normal [facility] Comment on above: Order Comment: Speci men Type: BLOOD SPECIMENOrdering Facility: [facility] Address: [address] [place] [address] Performed By: #### 2 4323-8, T4, ####[facility] LABCLIA [id number] [address] [place] [address] [place] Triglyceride [Mass/Vol] 292 mg/dL High <150 [facility] Comment on above: Order Comment: Speci men Type: BLOOD SPECIMENOrdering Facility: [facility] Address: [address] [place] [address] Result Comment: <150 mg/dL, Normal 150-199 mg/dL, Borderline high 200-499 mg/dL, High >499 mg/dL, Very high Performed By: #### 2 4323-8, T4FTI, 22481-0 ####[facility] LABCLIA [id number] [place] [address] [place] T4/FTI/T4Uon 09-17-2024 FTI 6.0 ug/dL Normal 5.3-10.8 [facility] Comment on above: Order Comment: Speci men Type: BLOOD SPECIMENOrdering Facility: [facility] Address: [address] [place] [address] Performed By: #### 2 432-8, T4FTI, 46678-4 ####[facility] LABCLIA [id number] [place] [address] [place] T4 [Mass/Vol] 6.8 ug/dL Normal 5.5-10.2 [facility] Comment on above: Order Comment: Speci men Type: BLOOD SPECIMENOrdering Facility: [facility] Address: [address] [place] [address] Performed By: #### 2 4323-8, T4FTI, 45989-8 ####[facility] LABCLIA [id number] [place] [address] [place] T4 uptake [Mass/Vol] 1.13 Normal 0.91-1.19 [facility] Comment on above: Order Comment: Speci men Type: BLOOD SPECIMENOrdering Facility: [facility] Address: [address] [place] [address] Performed By: #### 2 4323-8, T4FTI, 26360-4 ####[facility] LABCLIA [id number] [place] [address] [place] TSH SerPl-aCncon 09-17-2024 TSH Qn 2.780 m[IU]/L Normal 0.270-4.20 0 [facility] Comment on above: Order Comment: Speci men Type: BLOOD SPECIMENOrdering Facility: [facility] Address: [address] [place] [address] Performed By: #### 3 016-3 ####[facility] LABCLIA [id number] [place] [id number] [place] CNOVon 09-11-2024 CNOV Office Visit (FAMPWS ) LAZARO GARZON ([id number]) 1955 M Date Time Provider Department 09/11/24 [...] checked by Dr Ramos, urology. Still seeing [facility]. MEDICATIONS: Current Outpatient Medications Medication [...] CHOLECYSTECTOMY W/CHOLANGIOG (more content not included)... Normal [facility] Cardiology Visit Reporton Cardiology Visit Report [facility] 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 Accompanied by: Self Is patient in pain?: No Allergies Sulfa (Sulfonamide Antibiotics) Allergy (Verified 08/16/24 10:34) Unknown Medications ???Medication ???Instructions ???Recorded ???Confirmed ???Type multivitamin,xw-ixgi-uddtszq s 27 1 tab PO DAILY supplement 12/10/13 08/16/24 History mg-0.4 mg tablet albuterol sulfate 90 mcg/actuation 1 - 2 puff inhalation Q6H PRN [place] N 07/08/19 08/16/24 History aerosol inhaler Asthma [...] test Acute pyelonephritis Atherosclerotic heart disease of [place] coronary artery without angina pectoris Atrial flutter [...] quit date: 06/19/ (more content not included)... [facility] 07-12-2024 [facility] Telephone (FAMPWS) DURANLAZARO MCFARLANE ([id number]) 1955 M Date Time Provider Department 07/12/24 [...] 07/26/2023 Diagnosed: 07/26/2023 No response to treatment [[id number]] 07/26/2023 07/26/2023 Diagnosed: 07/26/2023 Otitis externa [H60.90] 07/26/2023 07/26/2023 Diagnosed: 07/26/2023 Postprocedural state [Z98.890] 07/26/2023 07/26/2023 Diagnosed: 07/26/2023 Presence of stent in coronary artery [Z95.5] 07/26/2023 Diagnosed: 07/26/2023 Status post coronary seymour (more content not included)... Normal [facility] CNOVon 07-08-2024 CNOV Office Visit (FAMPWS ) LAZARO GARZON ([id number]) 1955 Date Time Provider Department 07/08/24 9:00 [...] Abs Lymph 1.00 - 4.00 k/uL 1.20 [place]% % 8.1 Abs [place] <0.87 k/uL 0.60 [place]% % 0.9 Abs [...] Right 1988 LAPS SURG CHOLECYSTECTOMY W/CHOLANGIOGRAPHY 2004 [facility] - Dr. Bales OPEN REPAIR OF ROTATOR CUFF ACUTE Rotator cuff repair PERCUTANEOUS CORONARY INTERVENTION 2007 stent to LAD REPAIR EPIGASTRIC HERNIA,REDUC 07/19/2023 umbilical TONSILLECTOMY PRIMARY/SECONDARY Tonsillectomy FAMILY HISTORY Problem Relation Age of Onset Hypertension Mother Heart Mother Stroke Mother Allergies Mother Breast Cancer Mother Heart Father of [place] Allergies Father Asthma Daughter Allergies Sister Allergies [...] current m (more content not included)... Normal [facility] HbA1c (Bld)on 07-08-2024 Average glucose Estimated from glycated hemoglobin (Bld) [Mass/Vol] 103 mg/dL Normal [facility] Comment on above: Order Comment: Dunia peters Type: BLOOD SPECIMENOrdering Facility: [facility] Address: [address] [place] [address] Result Comment: eAG: (Estimated average glucose) is a calculated value from HgbA1c and is senior account representative of the average blood glucose level in the last 2-3 month period. Performed By: #### 5 5454-3 ####[facility] LABCLIA [id number] [place] [address] [place] HbA1c (Bld) [Mass fraction] 5.2 % Normal 4.3-5.6 [facility] Comment on above: Order Comment: Dunia peters Type: BLOOD SPECIMENOrdering Facility: [facility] Address: [address] [place] [address] Result Comment: [place] Diabetes Association guidelines indicate that patients with HgbA1c in the range 5.7-6.4% are at increased risk for development of diabetes, and intervention by lifestyle modification may be beneficial. HgbA1c greater or equal to 6.5% is considered diagnostic of diabetes. Performed By: #### 5 5454-3 ####[facility]. [facility] LABIA [id number] [place] [address] [place] POTASSIUMon 07-08-2024 Potassium [Moles/Vol] 4.1 mmol/L Normal 3.7-5.1 [facility] Comment on above: Order Comment: Dunia peters Type: BLOOD SPECIMENOrdering Facility: [facility] Address: [address] [place] [address] Performed By: #### K 1 ####[facility] LABCLIA [id number] [place] [address] [place] XR CHEST 2V [...] hazy opacities in the left lower lung. Auto Winder: [facility] Transcribe Date/Time: Jul 08 2024 11:41A Dictated by : LETTY THOMAS MD This examination was interpreted and the report reviewed and electronically signed by: LETTY THOMAS MD on Jul 08 2024 11:43AM EST [id number] Normal [facility] XR Chest PA and Lateralon IMPRESSION: Interval resolution/near total resolution of small hazy opacities in the left lower lung. Auto Winder: [facility] Transcribe Date/Time: Jul 08 2024 11:41A Dictated [...] hazy opacities in the left lower lung. Auto Winder: [facility] Transcribe Date/Time: Jul 08 2024 11:41A Dictated by : LETTY THOMAS MD This examination was interpreted and the report reviewed and electronically signed by: LETTY THOMAS MD on Jul 08 2024 11:43AM EST [facility] Radiology Study observation (narrative) [facility] XR Chest PA and LateralOrder ed By: Cc Provider on 07-08-2024 [facility] LAZARO GARZON ([id number]) 1955 M Date Time Provider Department 06/25/24 [...] Visit Diagnosis:Hypokalemia [E87.6] Order(s):POTASSIUM [SQK1] Order #: [id number] FUTURE HEMOGLOBIN A1C [SPNVD4G] Order #: [id number] FUTURE Prescriptions as of 06/25/2024 - doxycycline [...] Abnormal card (more content not included)... Normal [facility] Basic metabolic 2000 panelon 06-24-2024 Anion gap [Moles/Vol] 13 mmol/L Normal 8-15 [facility] Comment on above: Order Comment: Speci men Type: BLOOD SPECIMENOrdering Facility: [facility] Address: [address] [place] [address] Performed By: #### 2 4321-2 ####[facility] LABCLIA [id number] [facility] [id number] [address] [place] Calcium [Mass/Vol] 9.6 mg/dL Normal 8.5-10.2 [facility] Comment on above: Order Comment: Speci men Type: BLOOD SPECIMENOrdering Facility: [facility] Address: [address] [place] [address] Performed By: #### 2 4321-2 ####[facility] LABCLIA [id number] [place] [address] [place] Chloride [Moles/Vol] 100 mmol/L Normal 98-107 [facility] Comment on above: Order Comment: Speci men Type: BLOOD SPECIMENOrdering Facility: [facility] Address: [address] [place] [address] Performed By: #### 2 4321-2 ####[facility] LABCLIA [id number] [place] [address] [place] CO2 [Moles/Vol] 25 mmol/L Normal 22-30 [facility] Comment on above: Order Comment: Speci men Type: BLOOD SPECIMENOrdering Facility: [facility] Address: [address] [place] [address] Performed By: #### 2 4321-2 ####[facility] LABCLIA [id number] [place] [address] [place] Creatinine [Mass/Vol] 1.11 mg/dL Normal 0.73-1.22 [facility] Comment on above: Order Comment: Speci men Type: BLOOD SPECIMENOrdering Facility: [facility] Address: [address] [place] [address] Performed By: #### 2 4321-2 ####[facility] LABCLIA [id number] [place] [address] [place] Creatinine and Glomerular filtration rate.predicted panel (S/P/Bld) 73 mL/min/1.73m??? Normal >=60 [facility] Comment on above: Order Comment: Speci men Type: BLOOD SPECIMENOrdering Facility: [facility] Address: [address] [place] [address] Result Comment: Jayshree mated Glomerular Filtration Rate [...] actual GFR. Performed By: #### 2 4321-2 ####[facility] LABIA [id number] [place] [address] [place] Glucose [Mass/Vol] 167 mg/dL High 74-99 [facility] Comment on above: Order Comment: Dunia peters Type: BLOOD SPECIMENOrdering Facility: [facility] Address: [address] [place] [address] Result Comment: The [place] Diabetes Association (ADA) provides guidance for cutoff [...] Standards of Medical Care in Diabetes 2016, [place] [employer]. Diabetes Care. 2016.39(Suppl 1). Performed By: #### 2 4321-2 ####[facility] LABIA [id number] [place] [address] [place] Potassium [Moles/Vol] 3.6 mmol/L Low 3.7-5.1 [facility] Comment on above: Order Comment: Dunia peters Type: BLOOD SPECIMENOrdering Facility: [facility] Address: [address] [place] [address] Performed By: #### 2 4321-2 ####[facility] LABIA [id number] [place] [address] [place] Sodium [Moles/Vol] 138 mmol/L Normal 136-144 [facility] Comment on above: Order Comment: Speci men Type: BLOOD SPECIMENOrdering Facility: [facility] Address: [address] [place] [address] Performed By: #### 2 4321-2 ####[facility] LABCLIA [id number] [place] [address] [place] Urea nitrogen [Mass/Vol] 17 mg/dL Normal 9-24 [facility] Comment on above: Order Comment: Speci men Type: BLOOD SPECIMENOrdering Facility: [facility] Address: [address] [place] [address] Performed By: #### 2 4321-2 ####[facility] LABCLIA [id number] [place] [address] [place] CBC W Auto Differential pane l (Bld)on 06-24-2024 Basophils (Bld) [#/Vol] 0.04 10*3/uL Normal <0.11 [facility] Comment on above: Order Comment: Speci men Type: BLOOD SPECIMENOrdering Facility: [facility] Address: [address] [place] [address] Performed By: #### 5 7021-8 ####[facility] LABCLIA [id number] [place] [address] [place] Basophils/100 WBC (Bld) 0.5 % Normal [facility] Comment on above: Order Comment: Speci men Type: BLOOD SPECIMENOrdering Facility: [facility] Address: [address] [place] [address] Performed By: #### 5 7021-8 ####[facility] LABCLIA [id number] [place] [address] [place] Differential cell count method Nom (Bld) Auto Normal [facility] Comment on above: Order Comment: Speci men Type: BLOOD SPECIMENOrdering Facility: [facility] Address: [address] [place] [address] Performed By: #### 5 7021-8 ####[facility] LABCLIA [id number] [place] [address] [place] Eosinophils (Bld) [#/Vol] 0.07 10*3/uL Normal <0.46 [facility] Comment on above: Order Comment: Speci men Type: BLOOD SPECIMENOrdering Facility: [facility] Address: [address] [place] [address] Performed By: #### 5 7021-8 ####[facility] LABCLIA [id number] [place] [address] [place] Eosinophils/100 WBC (Bld) 0.9 % Normal [facility] Comment on above: Order Comment: Speci men Type: BLOOD SPECIMENOrdering Facility: [facility] Address: [address] [place] [address] Performed By: #### 5 7021-8 ####[facility] LABCLIA [id number] [place] [address] [place] Erythrocyte distribution width (RBC) [Ratio] 13.3 % Normal 11.5-15.0 [facility] Comment on above: Order Comment: Speci men Type: BLOOD SPECIMENOrdering Facility: [facility] Address: [address] [place] [address] Performed By: #### 5 7021-8 ####[facility] LABCLIA [id number] [place] [address] [place] Hematocrit (Bld) [Volume fraction] 49.5 % Normal 39.0-51.0 [facility] Comment on above: Order Comment: Speci men Type: BLOOD SPECIMENOrdering Facility: [facility] Address: [address] [place] [address] Performed By: #### 5 7021-8 ####[facility] LABCLIA [id number] [place] [address] [place] Hemoglobin (Bld) [Mass/Vol] 16.4 g/dL Normal 13.0-17.0 [facility] Comment on above: Order Comment: Speci men Type: BLOOD SPECIMENOrdering Facility: [facility] Address: [address] [place] [address] Performed By: #### 5 7021-8 ####[facility] LABCLIA [id number] [place] [address] [place] Immature granulocytes (Bld) [#/Vol] 0.03 10*3/uL Normal <0.10 [facility] Comment on above: Order Comment: Speci men Type: BLOOD SPECIMENOrdering Facility: [facility] Address: [address] [place] [address] Performed By: #### 5 7021-8 ####[facility] LABCLIA [id number] [place] [address] [place] Immature granulocytes/100 WBC (Bld) 0.4 % Normal [facility] Comment on above: Order Comment: Speci men Type: BLOOD SPECIMENOrdering Facility: [facility] Address: [address] [place] [address] Performed By: #### 5 7021-8 ####[facility] LABCLIA [id number] [place] [address] [place] Lymphocytes (Bld) [#/Vol] 1.20 10*3/uL Normal 1.00-4.00 [facility] Comment on above: Order Comment: Speci men Type: BLOOD SPECIMENOrdering Facility: [facility] Address: [address] [place] [address] Performed By: #### 5 7021-8 ####[facility] LABCLIA [id number] [place] [address] [place] Lymphocytes/100 WBC (Bld) 16.3 % Normal [facility] Comment on above: Order Comment: Speci men Type: BLOOD SPECIMENOrdering Facility: [facility] Address: [address] [place] [address] Performed By: #### 5 7021-8 ####[facility] LABIA [id number] [place] [address] [place] MCH (RBC) [Entitic mass] 28.7 pg Normal 26.0-34.0 [facility] Comment on above: Order Comment: Speci men Type: BLOOD SPECIMENOrdering Facility: [facility] Address: [address] [place] [address] Performed By: #### 5 7021-8 ####[facility] [id number] [place] [address] [place] MCHC (RBC) [Mass/Vol] 33.1 g/dL Normal 30.5-36.0 [facility] Comment on above: Order Comment: Speci men Type: BLOOD SPECIMENOrdering Facility: [facility] Address: [address] [place] [address] Performed By: #### 5 7021-8 ####[facility] [id number] [place] [address] [place] MCV (RBC) [Entitic vol] 86.7 fL Normal 80.0-100.0 [facility] Comment on above: Order Comment: Speci men Type: BLOOD SPECIMENOrdering Facility: [facility] Address: [address] [place] [address] Performed By: #### 5 7021-8 ####[facility] [id number] [place] [address] [place] Monocytes (Bld) [#/Vol] 0.60 10*3/uL Normal <0.87 [facility] Comment on above: Order Comment: Speci men Type: BLOOD SPECIMENOrdering Facility: [facility] Address: [address] [place] [address] Performed By: #### 5 7021-8 ####[facility] LABIA [id number] [place] [address] [place] Monocytes/100 WBC (Bld) 8.1 % Normal [facility] Comment on above: Order Comment: Speci men Type: BLOOD SPECIMENOrdering Facility: [facility] Address: [address] [place] [address] Performed By: #### 5 7021-8 ####[facility] LABCLIA [id number] [place] [address] [place] Neutrophils (Bld) [#/Vol] 5.44 10*3/uL Normal 1.45-7.50 [facility] Comment on above: Order Comment: Speci men Type: BLOOD SPECIMENOrdering Facility: [facility] Address: [address] [place] [address] Performed By: #### 5 7021-8 ####[facility] LABCLIA [id number] [place] [address] [place] Neutrophils/100 WBC (Bld) 73.8 % Normal [facility] Comment on above: Order Comment: Speci men Type: BLOOD SPECIMENOrdering Facility: [facility] Address: [address] [place] [address] Performed By: #### 5 7021-8 ####[facility] LABCLIA [id number] [place] [address] [place] Nucleated RBC (Bld) [#/Vol] 10*3/uL Normal <0.01 [facility] Comment on above: Order Comment: Speci men Type: BLOOD SPECIMENOrdering Facility: [facility] Address: [address] [place] [address] Performed By: #### 5 7021-8 ####[facility] LABCLIA [id number] [place] [address] [place] Nucleated RBC/100 WBC (Bld) [Ratio] 0.0 /100 WBC Normal [facility] Comment on above: Order Comment: Speci men Type: BLOOD SPECIMENOrdering Facility: [facility] Address: [address] [place] [address] Performed By: #### 5 7021-8 ####[facility] LABCLIA [id number] [place] [address] [place] Platelet mean volume (Bld) [Entitic vol] 11.4 fL Normal 9.0-12.7 [facility] Comment on above: Order Comment: Speci men Type: BLOOD SPECIMENOrdering Facility: [facility] Address: [address] [place] [address] Performed By: #### 5 7021-8 ####[facility] LABIA [id number] [place] [address] [place] Platelets (Bld) [#/Vol] 242 10*3/uL Normal 150-400 [facility] Comment on above: Order Comment: Speci men Type: BLOOD SPECIMENOrdering Facility: [facility] Address: [address] [place] [address] Performed By: #### 5 7021-8 ####[facility] LABIA [id number] [place] [address] [place] RBC (Bld) [#/Vol] 5.71 10*6/uL Normal 4.20-6.00 [facility] Comment on above: Order Comment: Speci men Type: BLOOD SPECIMENOrdering Facility: [facility] Address: [address] [place] [address] Performed By: #### 5 7021-8 ####[facility] LABCLIA [id number] [place] [address] [place] WBC (Bld) [#/Vol] 7.38 10*3/uL Normal 3.70-11.00 [facility] Comment on above: Order Comment: Speci men Type: BLOOD SPECIMENOrdering Facility: [facility] Address: [address] [place] [address] Performed By: #### 5 7021-8 ####[facility] SERVANDO [id number] [place] [address] [place] CNOVon 06-24-2024 CNOV Office Visit (FAMPWS ) DURANLAZARO Trujillo ([id number]) 1955 M Date Time Provider Department 06/24/24 9:00 AM [facility]AGJIT [facility] During your visit today, we recorded the [...] Right 1988 LAPS SURG CHOLECYSTECTOMY W/CHOLANGIOGRAPHY 2004 [facility] - Dr. 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 EPIGASTRIC HERNIA,REDUC 07/19/2023 umbilical TONSILLECTOMY PRIMARY/SECONDARY Tonsillectomy FAMILY HISTORY Problem Relation Age of Onset Hypertension Mother Heart Mother Stroke Mother Allergies Mother Breast Cancer Mother Heart Father of [place] Allergies Father Asthma Daughter Allergies Sister Allergies [...] Use Vap (more content not included)... Normal [facility] D dimer FEU PPP-mCncon 06-24 Fibrin D-dimer FEU (PPP) [Mass/Vol] 290 ng/mL FEU Normal <500 [facility] Comment on above: Order Comment: Speci men Type: BLOOD SPECIMENOrdering Facility: [facility] Address: [address] [place] [address] Performed By: #### 4 8065-7 ####[facility] LABCLIA [id number] [place] [address] [place] [facility] D-DIMERon 06-24-2024 Fibrin D-dimer FEU (PPP) [Mass/Vol] 290 NINF [facility] Fibrin D-dimer FEU (PPP) [Ma ss/Vol]on 06-24-2024 D Dimer Age-related Cutoff 660 ng/mL FEU [facility] 500 ng/mL FEU is the D [...] et al. Fanny Int Med 2016 165:253. [facility] D DIMER AGE-RELATED CUTOFF 660 ng/mL FEU Normal [facility] Comment on above: Order Comment: Speci men Type: BLOOD SPECIMENOrdering Facility: [facility] Address: [address] [place] [address] Performed By: #### 4 8065-7 ####[facility] [id number] [place] [address] [facility] CNOVon 06-17-2024 CNOV Office Visit (FAMPWS ) LAZARO GARZON ([id number]) 1955 M Date Time Provider Department 06/17/24 [...] Right 1988 LAPS SURG CHOLECYSTECTOMY W/CHOLANGIOGRAPHY 2004 [facility] - Dr. 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 EPIGASTRIC HERNIA,REDUC 07/19/2023 umbilical TONSILLECTOMY PRIMARY/SECONDARY Tonsillectomy FAMILY HISTORY Problem Relation Age of Onset Hypertension Mother Heart Mother Stroke Mother Allergies Mother Breast Cancer Mother Heart Father of [place] Allergies Father Asthma Daughter Allergies Sister Allergies Brother Allergies Daughter Social History Tobacco Use Smoking status: Former Current p (more content not included)... Normal [facility] Wade 06-17-2024 [facility] Telephone (FAMPWS) DURANLAZARO ([id number]) 1955 M Date Time Provider Department 06/17/24 [...] Diagnosed: 02 (more content not included)... Normal [facility] Telephone ([facility]) DURANLAZARO MCFARLANE ([id number]) 1955 M Date Time Provider Department 06/17/24 JAGJIT CHEEMA [facility] During your visit today, we recorded [...] Fully Assessed Reason for Visit: Patient Question [3597] Orders [681] Prescriptions as of 06/17/2024 - [...] 07/26/2023 Diagno (more content not included)... Normal [facility] XR CHEST 2V FRONTAL/LATon XR [...] the left lower lung. Consider short-term follow-up. Auto Winder: OSMANI Transcribe Date/Time: Jun 17 2024 3:25P Dictated by : LETTY THOMAS MD This examination was interpreted and the report reviewed and electronically signed by: LETTY THOMAS MD on Jun 17 2024 3:29PM EST [id number] Normal [facility] XR Chest PA and Lateralon IMPRESSION: Small hazy opacities overlying the left lower lung. Consider short-term follow-up. Auto Winder: OSMANI Transcribe Date/Time: Jun 17 2024 3:25P Dictated by : LETTY THOMAS MD This examination was interpreted and the report reviewed and electronically signed by: LETTY THOMAS MD on Jun 17 2024 3:29PM [facility] DIVISION OF RADIOLOGY * * *Final Report* [...] soft tissues: Unremarkable. DIVISION OF RADIOLOGY Provider, [facility] - 06/17/2024 * * *Final Report* * [...] the left lower lung. Consider short-term follow-up. Auto Winder: OSMANI Transcribe Date/Time: Jun 17 2024 3:25P Dictated by : LETTY THOMAS MD This examination was interpreted and the report reviewed and electronically signed by: LETTY THOMAS MD on Jun 17 2024 3:29PM [facility] Radiology Study observation (narrative) [facility] XR Chest PA and LateralOrder ed By: Ccf Provider on 06-17-2024 [facility] CNOVon 06-13-2024 CNOV Office Visit (UCWSTR ) LAZARO GARZON ([id number]) 1955 M Date Time Provider Department 06/13/24 4:30 PM CAROLANN LUCAS [facility] During your visit today, we recorded the following information about you: Temperature Pulse Respiration Blood pressure 97.7 degrees 90/minute 16/minute 136/74 Weight 153.1 kg Carolann Lucas APRN.LEASING ASSISTANT 06/13/2024 4:18 PM Signed Subjective The history is provided by the patient. No parts consultant was used. HPI Lazaro Garzon is a [...] have confirmed and edited as necessary, the [facility] Review of Systems Constitutional: Negative for [...] detail warranting prompt ER evaluation. Carolann Lucas APRN.LEASING ASSISTANT Allergies As of Date: 06/13/2024 Noted Allergy [...] 100 m (more content not included)... Normal [facility] Testosterone, Serum Totalon 06-06-2024 Testosterone [Mass/Vol] 385.78 ng/dL Normal [facility] Comment on above: Result Comment: CENT RAL 90% REFERENCE RANGES MALE AGE <50 197.44 - 669.58 ng/dL MALE AGE > or = 50 187.72 - 684.19 ng/dL FEMALE AGE <50 8.38 - 35.01 ng/dL FEMALE AGE > or = 50 <7.00 - 35.92 ng/dL Effective as of 01/12/21 Performed By: #### L 501.9910, L509.3000 #### [facility] [address] [place], [address] PSA,Total - Annual Screenon 06-04-2024 PSA,TOT SCREEN 3.40 ng/mL Normal 0.00-4.00 [facility] Comment on above: Result Comment: This test was performed using the TPSA assay method for the [employer] chemistry system. Values obtained with different assay methods cannot be used interchangably. When changing PSA assays in the course of monitoring a patient, additional sequential testing should be carried out to confirm baseline values. Performed By: #### L 501.9910, L509.3000 #### [facility] [address] [place], [address] Wade 04-26-2024 IL[facility] Telephone (PERICO) DURANLAZARO Trujillo ([id number]) 1955 M Date Time Provider Department 04/26/24 LISA JAVED During your visit today, we recorded the following information about you: Lisa Javed APRN.CNP 04/26/2024 10:22 AM Signed Please see if lab can add on A1c. His blood sugar was elevated- if not he will need to come back in. Lisa Javed APRN.Sincere Car RN 04/26/2024 12:40 PM Signed Spoke with Amanda at [facility] Main lab, who states they will be able to add the hgba1c with the blood collected yesterday. Allergies As of Date: 04/26/2024 Noted Allergy Reaction SULFA (SULFONAMIDE ANTIBIOTICS) 03/10/2005 2 - Rash Date Reviewed: 04/25/2024 Reviewed by: Annel Tomlinson MA - Fully Assessed Reason for Visit: Lab add on [Other] Primary Visit Diagnosis:Elevated blood sugar [R73.9] Order(s):HEMOGLOBIN A1C [RWMDZ9I] Order #: [id number] FUTURE Prescriptions as of 04/26/2024 - meclizine [...] 07/26/2023 Diagnosed: 07/26/2023 No response to treatment [[id number]] 07/26/2023 07/26/2023 Diagnosed: 07/26/2023 Otitis externa [H60.90] 07/26/2023 07/26/2023 Diagnosed: 07/26/2023 Postprocedural state [Z98.890] 07/26/2023 07/26/2023 Diagnosed: 07/26/2023 Presence of stent in coronary artery [Z95.5] 07/26 (more content not included)... Normal [facility] Bacteria Ur Culton Bacteria identified Cx Nom (U) ORGANISM ID: 1 <10,000 CFU/ml Normal urogenital richard Normal [facility] Comment on above: Performed By: #### 6 30-4 ####[facility] LABCLIA [id number] [place] [address] [place] CBC W Auto Differential pane l (Bld)on 04-25-2024 Basophils (Bld) [#/Vol] 0.03 10*3/uL [facility] Basophils/100 WBC (Bld) 0.5 % [facility] Differential cell count method Nom (Bld) Auto [facility] Eosinophils (Bld) [#/Vol] 0.08 10*3/uL [facility] Eosinophils/100 WBC (Bld) 1.3 % [facility] Erythrocyte distribution width (RBC) [Ratio] 13.0 % 11.5 - 15.0 % [facility] Hematocrit (Bld) [Volume fraction] 45.8 % 39.0 - 51.0 % [facility] Hemoglobin (Bld) [Mass/Vol] 15.3 g/dL 13.0 - 17.0 g/dL [facility] Immature granulocytes (Bld) [#/Vol] [facility] Immature granulocytes/100 WBC (Bld) 0.3 % [facility] Interpretation and review of laboratory results Abnormal [facility] Lymphocytes (Bld) [#/Vol] 0.90 10*3/uL Low [facility] Lymphocytes/100 WBC (Bld) 14.8 % [facility] MCH (RBC) [Entitic mass] 29.2 pg 26.0 - 34.0 pg [facility] MCHC (RBC) [Mass/Vol] 33.4 g/dL 30.5 - 36.0 g/dL [facility] [facility] MCV (RBC) [Entitic vol] 87.4 fL 80.0 - 100.0 fL [facility] Monocytes (Bld) [#/Vol] 0.53 10*3/uL NINF [facility] Monocytes/100 WBC (Bld) 8.7 % [facility] Neutrophils (Bld) [#/Vol] 4.54 10*3/uL [facility] Neutrophils/100 WBC (Bld) 74.4 % [facility] Nucleated RBC (Bld) [#/Vol] NINF [facility] Nucleated RBC/100 WBC (Bld) [Ratio] 0.0 % /100 WBC [facility] Platelet mean volume (Bld) [Entitic vol] 11.4 fL 9.0 - 12.7 fL [facility] Platelets (Bld) [#/Vol] 169 10*3/uL [facility] RBC (Bld) [#/Vol] 5.24 10*6/uL 4.20 - 6.00 m/uL [facility] WBC (Bld) [#/Vol] 6.10 10*3/uL [facility] Basophils (Bld) [#/Vol] 0.03 10*3/uL Normal <0.11 [facility] Comment on above: Order Comment: Speci men Type: BLOOD SPECIMENOrdering Facility: [facility] Address: [address] [place] [address] Performed By: #### 5 7021-8, 92302-8 ####[facility] LABCLIA [id number] [address] [place] Basophils/100 WBC (Bld) 0.5 % Normal [facility] Comment on above: Order Comment: Speci men Type: BLOOD SPECIMENOrdering Facility: [facility] Address: [address] [place], [place] [address] Performed By: #### 5 7021-8, 32712-6 ####[facility] LABCLIA [id number] [place] [address] [place] Differential cell count method Nom (Bld) Auto Normal [facility] Comment on above: Order Comment: Speci men Type: BLOOD SPECIMENOrdering Facility: [facility] Address: [address] [place] [address] Performed By: #### 5 7021-8, 04606-8 ####[facility] LABCLIA [id number] [place] [address] [place] Eosinophils (Bld) [#/Vol] 0.08 10*3/uL Normal <0.46 [facility] Comment on above: Order Comment: Speci men Type: BLOOD SPECIMENOrdering Facility: [facility] Address: [address] [place] [address] Performed By: #### 5 7021-8, 72096-3 ####[facility] LABCLIA [id number] [place] [address] [place] Eosinophils/100 WBC (Bld) 1.3 % Normal [facility] Comment on above: Order Comment: Speci men Type: BLOOD SPECIMENOrdering Facility: [facility] Address: [address] [place] [address] Performed By: #### 5 7021-8, 12432-9 ####[facility] LABCLIA [id number] [place] [address] [place] Erythrocyte distribution width (RBC) [Ratio] 13.0 % Normal 11.5-15.0 [facility] Comment on above: Order Comment: Speci men Type: BLOOD SPECIMENOrdering Facility: [facility] Address: [address] [place] [address] Performed By: #### 5 7021-8, 23980-5 ####[facility] LABCLIA [id number] [place] [address] [place] Hematocrit (Bld) [Volume fraction] 45.8 % Normal 39.0-51.0 [facility] Comment on above: Order Comment: Speci men Type: BLOOD SPECIMENOrdering Facility: [facility] Address: [address] [place] [address] Performed By: #### 5 7021-8, 48312-0 ####[facility] LABCLIA [id number] [place] [address] [place] Hemoglobin (Bld) [Mass/Vol] 15.3 g/dL Normal 13.0-17.0 [facility] Comment on above: Order Comment: Speci men Type: BLOOD SPECIMENOrdering Facility: [facility] Address: [address] [place] [address] Performed By: #### 5 7021-8, 43332-0 ####[facility] LABIA [id number] [place] [address] [place] Immature granulocytes (Bld) [#/Vol] 10*3/uL Normal <0.10 [facility] Comment on above: Order Comment: Speci men Type: BLOOD SPECIMENOrdering Facility: [facility] Address: [address] [place] [address] Performed By: #### 5 7021-8, 15450-9 ####[facility] LABCLIA [id number] [place] [address] [place] Immature granulocytes/100 WBC (Bld) 0.3 % Normal [facility] Comment on above: Order Comment: Speci men Type: BLOOD SPECIMENOrdering Facility: [facility] Address: [address] [place] [address] Performed By: #### 5 7021-8, 21298-4 ####[facility] LABCLIA [id number] [place] [address] [place] Lymphocytes (Bld) [#/Vol] 0.90 10*3/uL Low 1.00-4.00 [facility] Comment on above: Order Comment: Speci men Type: BLOOD SPECIMENOrdering Facility: [facility] Address: [address] [place] [address] Performed By: #### 5 7021-8, 51809-8 ####[facility] LABCLIA [id number] [place] [address] [place] Lymphocytes/100 WBC (Bld) 14.8 % Normal [facility] Comment on above: Order Comment: Speci men Type: BLOOD SPECIMENOrdering Facility: [facility] Address: [address] [place] [address] Performed By: #### 5 7021-8, 61241-8 ####[facility] LABCLIA [id number] [place] [address] [place] MCH (RBC) [Entitic mass] 29.2 pg Normal 26.0-34.0 [facility] Comment on above: Order Comment: Speci men Type: BLOOD SPECIMENOrdering Facility: [facility] Address: [address] [place] [address] Performed By: #### 5 7021-8, 78716-5 ####[facility] LABCLIA [id number] [place] [address] [place] MCHC (RBC) [Mass/Vol] 33.4 g/dL Normal 30.5-36.0 [facility] Comment on above: Order Comment: Speci men Type: BLOOD SPECIMENOrdering Facility: [facility] Address: [address] [place] [address] Performed By: #### 5 7021-8, 13203-1 ####[facility] LABCLIA [id number] [place] [address] [place] MCV (RBC) [Entitic vol] 87.4 fL Normal 80.0-100.0 [facility] Comment on above: Order Comment: Speci men Type: BLOOD SPECIMENOrdering Facility: [facility] Address: [address] [place] [address] Performed By: #### 5 7021-8, 58482-0 ####[facility] LABCLIA [id number] [place] [address] [place] Monocytes (Bld) [#/Vol] 0.53 10*3/uL Normal <0.87 [facility] Comment on above: Order Comment: Speci men Type: BLOOD SPECIMENOrdering Facility: [facility] Address: [address] [place] [address] Performed By: #### 5 7021-8, 39730-4 ####[facility] LABCLIA [id number] [place] [address] [place] Monocytes/100 WBC (Bld) 8.7 % Normal [facility] Comment on above: Order Comment: Speci men Type: BLOOD SPECIMENOrdering Facility: [facility] Address: [address] [place] [address] Performed By: #### 5 7021-8, 94865-8 ####[facility] LABCLIA [id number] [place] [address] [place] Neutrophils (Bld) [#/Vol] 4.54 10*3/uL Normal 1.45-7.50 [facility] Comment on above: Order Comment: Speci men Type: BLOOD SPECIMENOrdering Facility: [facility] Address: [address] [place] [address] Performed By: #### 5 7021-8, 19832-3 ####[facility] LABCLIA [id number] [place] [address] [place] Neutrophils/100 WBC (Bld) 74.4 % Normal [facility] Comment on above: Order Comment: Speci men Type: BLOOD SPECIMENOrdering Facility: [facility] Address: [address] [place] [address] Performed By: #### 5 7021-8, 47953-6 ####[facility] LABCLIA [id number] [place] [address] [place] Nucleated RBC (Bld) [#/Vol] 10*3/uL Normal <0.01 [facility] Comment on above: Order Comment: Speci men Type: BLOOD SPECIMENOrdering Facility: [facility] Address: [address] [place] [address] Performed By: #### 5 7021-8, 00242-6 ####[facility] LABCLIA [id number] [place] [address] [place] Nucleated RBC/100 WBC (Bld) [Ratio] 0.0 /100 WBC Normal [facility] Comment on above: Order Comment: Speci men Type: BLOOD SPECIMENOrdering Facility: [facility] Address: [address] [place] [address] Performed By: #### 5 7021-8, 88684-1 ####[facility] LABCLIA [id number] [place] [address] [place] Platelet mean volume (Bld) [Entitic vol] 11.4 fL Normal 9.0-12.7 [facility] Comment on above: Order Comment: Speci men Type: BLOOD SPECIMENOrdering Facility: [facility] Address: [address] [place] [address] Performed By: #### 5 7021-8, 34437-0 ####[facility] LABCLIA [id number] [place] [id number] [place] Platelets (Bld) [#/Vol] 169 10*3/uL Normal 150-400 [facility] Comment on above: Order Comment: Speci men Type: BLOOD SPECIMENOrdering Facility: [facility] Address: [address] [place] [address] Performed By: #### 5 7021-8, 39917-0 ####[facility] LABCLIA [id number] [place] [id number] [place] RBC (Bld) [#/Vol] 5.24 10*6/uL Normal 4.20-6.00 [facility] Comment on above: Order Comment: Speci men Type: BLOOD SPECIMENOrdering Facility: [facility] Address: [address] [place] [address] Performed By: #### 5 7021-8, 49104-7 ####[facility] LABCLIA [id number] [place] [id number] [place] WBC (Bld) [#/Vol] 6.10 10*3/uL Normal 3.70-11.00 [facility] Comment on above: Order Comment: Speci men Type: BLOOD SPECIMENOrdering Facility: [facility] Address: [address] [place] [address] Performed By: #### 5 7021-8, 01206-9 ####[facility] LABCLIA [id number] [place] [address] [place] BALTAZAROVclarissa 04-25-2024 CNOV Office Visit (PERICO ) LAZARO GARZON ([id number]) 1955 M Date Time Provider Department 04/25/24 [...] and trying to walk down the stairs. [place] like he was spinning around this morning. [...] speech normal (more content not included)... Normal [facility] Comprehensive metabolic 2000 panelon 04-25-2024 Albumin [Mass/Vol] 4.4 g/dL Normal 3.9-4.9 [facility] Comment on above: Order Comment: Speci men Type: BLOOD SPECIMENOrdering Facility: [facility] Address: [address] [place] [address] Performed By: #### 2 4323-8 ####[facility] LABCLIA [id number] [facility] [place] [address] [place] ALP [Catalytic activity/Vol] 72 U/L Normal 38-113 [facility] Comment on above: Order Comment: Speci men Type: BLOOD SPECIMENOrdering Facility: [facility] Address: [address] [place] [address] Performed By: #### 2 4323-8 ####[facility] LABCLIA [id number] [place] [address] [place] ALT [Catalytic activity/Vol] 39 U/L Normal 10-54 [facility] Comment on above: Order Comment: Speci men Type: BLOOD SPECIMENOrdering Facility: [facility] Address: [address] [place] [address] Performed By: #### 2 4323-8 ####[facility] LABCLIA [id number] [facility] [place] [address] [place] Anion gap [Moles/Vol] 11 mmol/L Normal 8-15 [facility] Comment on above: Order Comment: Speci men Type: BLOOD SPECIMENOrdering Facility: [facility] Address: [address] [place] [address] Performed By: #### 2 4323-8 ####[facility] LABCLIA [id number] [place] [address] [place] AST [Catalytic activity/Vol] 24 U/L Normal 14-40 [facility] Comment on above: Order Comment: Speci men Type: BLOOD SPECIMENOrdering Facility: [facility] Address: [address] [place] [address] Performed By: #### 2 4323-8 ####[facility] LABCLIA [id number] [place] [address] [place] Bilirubin [Mass/Vol] 0.7 mg/dL Normal 0.2-1.3 [facility] Comment on above: Order Comment: Speci men Type: BLOOD SPECIMENOrdering Facility: [facility] Address: [address] [place] [address] Performed By: #### 2 4323-8 ####[facility] LABCLIA [id number] [place] [address] [place] Calcium [Mass/Vol] 9.2 mg/dL Normal 8.5-10.2 [facility] Comment on above: Order Comment: Speci men Type: BLOOD SPECIMENOrdering Facility: [facility] Address: [address] [place] [address] Performed By: #### 2 4323-8 ####[facility] LABCLIA [id number] [place] [address] [place] Chloride [Moles/Vol] 101 mmol/L Normal 98-107 [facility] Comment on above: Order Comment: Speci men Type: BLOOD SPECIMENOrdering Facility: [facility] Address: [address] [place] [address] Performed By: #### 2 4323-8 ####[facility] LABCLIA [id number] [place] [address] [place] CO2 [Moles/Vol] 27 mmol/L Normal 22-30 [facility] Comment on above: Order Comment: Speci men Type: BLOOD SPECIMENOrdering Facility: [facility] Address: [address] [place] [address] Performed By: #### 2 4323-8 ####[facility] LABCLIA [id number] [place] [address] [place] Creatinine [Mass/Vol] 0.97 mg/dL Normal 0.73-1.22 [facility] Comment on above: Order Comment: Dunia peters Type: BLOOD SPECIMENOrdering Facility: [facility] Address: [address] [place] [address] Performed By: #### 2 4323-8 ####[facility] LABCLIA [id number] [place] [address] [place] Creatinine and Glomerular filtration rate.predicted panel (S/P/Bld) 86 mL/min/1.73m??? Normal >=60 [facility] Comment on above: Order Comment: Dunia peters Type: BLOOD SPECIMENOrdering Facility: [facility] Address: [address] [place] [address] Result Comment: Jayshree mated Glomerular Filtration Rate [...] actual GFR. Performed By: #### 2 4323-8 ####[facility] LABCLIA [id number] [place] [address] [place] Glucose [Mass/Vol] 173 mg/dL High 74-99 [facility] Comment on above: Order Comment: Dunia peters Type: BLOOD SPECIMENOrdering Facility: [facility] Address: [address] [place] [address] Result Comment: The [place] Diabetes Association (ADA) provides guidance for cutoff [...] Standards of Medical Care in Diabetes 2016, [place] [employer]. Diabetes Care. 2016.39(Suppl 1). Performed By: #### 2 4323-8 ####[facility] LABCLIA [id number] [address] [address] [place] Potassium [Moles/Vol] 4.1 mmol/L Normal 3.7-5.1 [facility] Comment on above: Order Comment: Speci men Type: BLOOD SPECIMENOrdering Facility: [facility] Address: [address] [place] [address] Performed By: #### 2 4323-8 ####[facility] LABCLIA [id number] [place] [address] [place] Protein [Mass/Vol] 7.3 g/dL Normal 6.3-8.0 [facility] Comment on above: Order Comment: Speci men Type: BLOOD SPECIMENOrdering Facility: [facility] Address: [address] [place] [address] Performed By: #### 2 4323-8 ####[facility] LABCLIA [id number] [place] [address] [place] Sodium [Moles/Vol] 139 mmol/L Normal 136-144 [facility] Comment on above: Order Comment: Speci men Type: BLOOD SPECIMENOrdering Facility: [facility] Address: [address] [place] [address] Performed By: #### 2 4323-8 ####[facility] LABCLIA [id number] [place] [id number] [place] Urea nitrogen [Mass/Vol] 15 mg/dL Normal 9-24 [facility] Comment on above: Order Comment: Speci men Type: BLOOD SPECIMENOrdering Facility: [facility] Address: [address] [place], [place] [address] Performed By: #### 2 4323-8 ####[facility] LABCLIA [id number] [address] [place] HbA1c (Bld)on 04-25-2024 Average glucose Estimated from glycated hemoglobin (Bld) [Mass/Vol] 105 mg/dL Normal [facility] Comment on above: Order Comment: Dunia peters Type: BLOOD SPECIMENOrdering Facility: [facility] Address: [address] [place] [address] Result Comment: eAG: (Estimated average glucose) is a calculated value from HgbA1c and is senior account representative of the average blood glucose level in the last 2-3 month period. Performed By: #### 5 7021-8, 75539-1 ####[facility] LABCLIA [id number] [place] [address] [place] HbA1c (Bld) [Mass fraction] 5.3 % Normal 4.3-5.6 [facility] Comment on above: Order Comment: Paragi men Type: BLOOD SPECIMENOrdering Facility: [facility] Address: [address] [place] [address] Result Comment: [place] Diabetes Association guidelines indicate that patients with HgbA1c in the range 5.7-6.4% are at increased risk for development of diabetes, and intervention by lifestyle modification may be beneficial. HgbA1c greater or equal to 6.5% is considered diagnostic of diabetes. Performed By: #### 5 7021-8, 93798-8 ####[facility] LABCLIA [id number] [place] [address] [place] Urinalysis complete panel (U )on 04-25-2024 Bacteria LM.HPF (Urine sed) [#/Area] Negative Normal Negative [facility] Comment on above: Order Comment: Speci men Type: URINE SPECIMENOrdering Facility: [facility] Address: [address] [place] [address] Performed By: #### 2 4356-8 ####[facility] LABCLIA [id number] [place] [address] [place] Bilirubin Ql (U) Negative Normal Negative [facility] Comment on above: Order Comment: Speci men Type: URINE SPECIMENOrdering Facility: [facility] Address: [address] [place] [address] Performed By: #### 2 4356-8 ####[facility] LABCLIA [id number] [place] [address] [place] Clarity (Unsp spec) Clear Normal Clear [facility] Comment on above: Order Comment: Speci men Type: URINE SPECIMENOrdering Facility: [facility] Address: [address] [place] [address] Performed By: #### 2 4356-8 ####[facility] LABCLIA [id number] [place] [address] [place] Color (U) Yellow Normal Yellow [facility] Comment on above: Order Comment: Speci men Type: URINE SPECIMENOrdering Facility: [facility] Address: [address] [place] [address] Performed By: #### 2 4356-8 ####[facility] LABCLIA [id number] [place] [address] [place] Epithelial cells LM.HPF (Urine sed) [#/Area] None Seen Normal [facility] Comment on above: Order Comment: Speci men Type: URINE SPECIMENOrdering Facility: [facility] Address: [address] [place] [address] Performed By: #### 2 4356-8 ####[facility] LABCLIA [id number] [place] [address] [place] Glucose Test strip (U) [Mass/Vol] Trace Abnormal Negative [facility] Comment on above: Order Comment: Speci men Type: URINE SPECIMENOrdering Facility: [facility] Address: [address] [place] [address] Performed By: #### 2 4356-8 ####[facility] LABCLIA [id number] [place] [address] [place] Hemoglobin Ql (U) Negative Normal Negative [facility] Comment on above: Order Comment: Speci men Type: URINE SPECIMENOrdering Facility: [facility] Address: [address] [place] [address] Performed By: #### 2 4356-8 ####[facility] LABCLIA [id number] [place] [address] [place] Hyaline casts (Urine sed) [#/Area] 0 /[LPF] Normal 0 /LPF [facility] Comment on above: Order Comment: Speci men Type: URINE SPECIMENOrdering Facility: [facility] Address: [address] [place] [address] Performed By: #### 2 4356-8 ####[facility] LABCLIA [id number] [place] [address] [place] Ketones Ql (U) Negative Normal Negative [facility] Comment on above: Order Comment: Speci men Type: URINE SPECIMENOrdering Facility: [facility] Address: [address] [place] [address] Performed By: #### 2 4356-8 ####[facility] LABCLIA [id number] [place] [address] [place] Leukocyte esterase Test strip Ql (U) Negative Normal Negative [facility] Comment on above: Order Comment: Speci men Type: URINE SPECIMENOrdering Facility: [facility] Address: [address] [place] [address] Performed By: #### 2 4356-8 ####[facility] LABCLIA [id number] [place] [address] [place] Nitrite Ql (U) Negative Normal Negative [facility] Comment on above: Order Comment: Speci men Type: URINE SPECIMENOrdering Facility: [facility] Address: [address] [place] [address] Performed By: #### 2 4356-8 ####[facility] LABCLIA [id number] [place] [address] [place] pH (U) 7.5 [pH] Normal <8.5 [facility] Comment on above: Order Comment: Speci men Type: URINE SPECIMENOrdering Facility: [facility] Address: [address] [place] [address] Performed By: #### 2 4356-8 ####[facility] LABIA [id number] [place] [address] [place] Protein (U) [Mass/Vol] Negative Normal Negative [facility] Comment on above: Order Comment: Speci men Type: URINE SPECIMENOrdering Facility: [facility] Address: [address] [place] [address] Performed By: #### 2 4356-8 ####[facility] LABIA [id number] [place] [address] [place] RBC LM.HPF (Urine sed) [#/Area] 0-2 /HPF Normal 0-2 /HPF [facility] Comment on above: Order Comment: Speci men Type: URINE SPECIMENOrdering Facility: [facility] Address: [address] [place] [address] Performed By: #### 2 4356-8 ####[facility] LABIA [id number] [place] [address] [place] Specific gravity (U) [Rel density] 1.021 Normal 1.005-1.03 0 [facility] Comment on above: Order Comment: Speci men Type: URINE SPECIMENOrdering Facility: [facility] Address: [address] [place] [address] Performed By: #### 2 4356-8 ####[facility] LABIA [id number] [place] [address] [place] Urobilinogen Ql (U) 0.2 EU/dL Normal 0.2-1.0 EU/dL [facility] Comment on above: Order Comment: Speci men Type: URINE SPECIMENOrdering Facility: [facility] Address: [address] [place] [address] Performed By: #### 2 4356-8 ####[facility] [id number] [place] [address] [place] WBC LM.HPF (Urine sed) [#/Area] 0-5 /HPF Normal 0-5 /HPF [facility] Comment on above: Order Comment: Speci men Type: URINE SPECIMENOrdering Facility: [facility] Address: [address] [place] [address] Performed By: #### 2 4356-8 ####[facility] [id number] [place] [address] [place] XR CHEST 2V [...] thoracic spine. IMPRESSION: No acute radiographic abnormality. Auto Winder: PSCB Transcribe Date/Time: Apr 25 2024 2:18P Dictated by : ASHLEY MONTANO MD This examination was interpreted and the report reviewed and electronically signed by: ASHLEY MONTANO MD on Apr 25 2024 2:19PM EST [id number] Normal [facility] XR Chest PA and Lateralon IMPRESSION: No acute radiographic abnormality. Auto Winder: OSMANI Transcribe Date/Time: Apr 25 2024 2:18P Dictated by : ASHLEY MONTANO MD This examination was interpreted and the report reviewed and electronically signed by: ASHLEY MONTANO MD on Apr 25 2024 2:19PM [facility] DIVISION OF RADIOLOGY * * *Final Report* [...] the thoracic spine. DIVISION OF RADIOLOGY Provider, [facility] - 04/25/2024 * * *Final Report* * [...] spine. IMPRESSION IMPRESSION: No acute radiographic abnormality. Auto Winder: OSMANI Transcribe Date/Time: Apr 25 2024 2:18P Dictated by : ASHLEY MONTANO MD This examination was interpreted and the report reviewed and electronically signed by: ASHLEY MONTANO MD on Apr 25 2024 2:19PM EST [facility] Radiology Study observation (narrative) [facility] XR Chest PA and LateralOrder ed By: Ccf Provider on 04-25-2024 [facility] CNOVon 04-10-2024 CNOV Office Visit (FAMPWS ) LAZARO GARZON ([id number]) 1955 M Date Time Provider Department 04/10/24 [...] Right 1988 LAPS SURG CHOLECYSTECTOMY W/CHOLANGIOGRAPHY 2004 [facility] - Dr. 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 EPIGASTRIC HERNIA,REDUC 07/19/2023 umbilical TONSILLECTOMY PRIMARY/SECONDARY Tonsillectomy Family History FAMILY HISTORY Problem Relation Age of Onset Hypertension Mother Heart Mother Stroke Mother Allergies Mother Breast Cancer Mother Heart Father of [place] Allergies Father Asthma Daughter Allergies Sister Allergies [...] Smokeless tob (more content not included)... [facility] LAZARO GARZON ([id number]) 1955 M Date Time Provider Department 03/13/24 [...] Lymph 1.00 - 4.00 k/uL 0.82 (L) [place]% % 7.5 Abs [place] <0.87 k/uL 0.31 Eosin% % 1.4 Abs [...] colonic polyp (more content not included)... Normal [facility] CBC W Auto Differential pane l (Bld)on 03-08-2024 Basophils (Bld) [#/Vol] [facility] Basophils/100 WBC (Bld) 0.2 % [facility] Differential cell count method Nom (Bld) Auto [facility] Eosinophils (Bld) [#/Vol] 0.06 10*3/uL [facility] Eosinophils/100 WBC (Bld) 1.4 % [facility] Erythrocyte distribution width (RBC) [Ratio] 13.4 % 11.5 - 15.0 % [facility] Hematocrit (Bld) [Volume fraction] 43.8 % 39.0 - 51.0 % [facility] Hemoglobin (Bld) [Mass/Vol] 14.7 g/dL 13.0 - 17.0 g/dL [facility] Immature granulocytes (Bld) [#/Vol] [facility] Immature granulocytes/100 WBC (Bld) 0.2 % [facility] Interpretation and review of laboratory results Abnormal [facility] Lymphocytes (Bld) [#/Vol] 0.82 10*3/uL Low [facility] Lymphocytes/100 WBC (Bld) 19.8 % [facility] MCH (RBC) [Entitic mass] 29.3 pg 26.0 - 34.0 pg [facility] MCHC (RBC) [Mass/Vol] 33.6 g/dL 30.5 - 36.0 g/dL [facility] MCV (RBC) [Entitic vol] 87.4 fL 80.0 - 100.0 fL [facility] Monocytes (Bld) [#/Vol] 0.31 10*3/uL [facility] Monocytes/100 WBC (Bld) 7.5 % [facility] Neutrophils (Bld) [#/Vol] 2.94 10*3/uL [facility] Neutrophils/100 WBC (Bld) 70.9 % [facility] Nucleated RBC (Bld) [#/Vol] NINF [facility] Nucleated RBC/100 WBC (Bld) [Ratio] 0.0 % /100 WBC [facility] Platelet mean volume (Bld) [Entitic vol] 11.7 fL 9.0 - 12.7 fL [facility] Platelets (Bld) [#/Vol] 154 10*3/uL [facility] RBC (Bld) [#/Vol] 5.01 10*6/uL 4.20 - 6.00 m/uL [facility] WBC (Bld) [#/Vol] 4.15 10*3/uL [facility] Basophils (Bld) [#/Vol] 10*3/uL Normal <0.11 [facility] Comment on above: Order Comment: Speci men Type: BLOOD SPECIMENOrdering Facility: [facility] Address: [address] [place] [address] Performed By: #### 5 7021-8 ####[facility] LABCLIA [id number] [place] [address] [place] Basophils/100 WBC (Bld) 0.2 % Normal [facility] Comment on above: Order Comment: Speci men Type: BLOOD SPECIMENOrdering Facility: [facility] Address: [address] [place] [address] Performed By: #### 5 7021-8 ####[facility] LABCLIA [id number] [place] [address] [place] Differential cell count method Nom (Bld) Auto Normal [facility] Comment on above: Order Comment: Speci men Type: BLOOD SPECIMENOrdering Facility: [facility] Address: [address] [place] [address] Performed By: #### 5 7021-8 ####[facility] LABCLIA [id number] [place] [address] [place] Eosinophils (Bld) [#/Vol] 0.06 10*3/uL Normal <0.46 [facility] Comment on above: Order Comment: Speci men Type: BLOOD SPECIMENOrdering Facility: [facility] Address: [address] [place] [address] Performed By: #### 5 7021-8 ####[facility] LABCLIA [id number] [place] [address] [place] Eosinophils/100 WBC (Bld) 1.4 % Normal [facility] Comment on above: Order Comment: Speci men Type: BLOOD SPECIMENOrdering Facility: [facility] Address: [address] [place] [address] Performed By: #### 5 7021-8 ####[facility] LABIA [id number] [place] [address] [place] Erythrocyte distribution width (RBC) [Ratio] 13.4 % Normal 11.5-15.0 [facility] Comment on above: Order Comment: Speci men Type: BLOOD SPECIMENOrdering Facility: [facility] Address: [address] [place] [address] Performed By: #### 5 7021-8 ####[facility] LABIA [id number] [place] [address] [place] Hematocrit (Bld) [Volume fraction] 43.8 % Normal 39.0-51.0 [facility] Comment on above: Order Comment: Speci men Type: BLOOD SPECIMENOrdering Facility: [facility] Address: [address] [place] [address] Performed By: #### 5 7021-8 ####[facility] LABIA [id number] [place] [address] [place] Hemoglobin (Bld) [Mass/Vol] 14.7 g/dL Normal 13.0-17.0 [facility] Comment on above: Order Comment: Speci men Type: BLOOD SPECIMENOrdering Facility: [facility] Address: [address] [place] [address] Performed By: #### 5 7021-8 ####[facility] LABCLIA [id number] [place] [address] [place] Immature granulocytes (Bld) [#/Vol] 10*3/uL Normal <0.10 [facility] Comment on above: Order Comment: Speci men Type: BLOOD SPECIMENOrdering Facility: [facility] Address: [address] [place] [address] Performed By: #### 5 7021-8 ####[facility] LABCLIA [id number] [place] [address] [place] Immature granulocytes/100 WBC (Bld) 0.2 % Normal [facility] Comment on above: Order Comment: Speci men Type: BLOOD SPECIMENOrdering Facility: [facility] Address: [address] [place] [address] Performed By: #### 5 7021-8 ####[facility] LABCLIA [id number] [place] [address] [place] Lymphocytes (Bld) [#/Vol] 0.82 10*3/uL Low 1.00-4.00 [facility] Comment on above: Order Comment: Speci men Type: BLOOD SPECIMENOrdering Facility: [facility] Address: [address] [place] [address] Performed By: #### 5 7021-8 ####[facility] LABCLIA [id number] [place] [address] [place] Lymphocytes/100 WBC (Bld) 19.8 % Normal [facility] Comment on above: Order Comment: Speci men Type: BLOOD SPECIMENOrdering Facility: [facility] Address: [address] [place] [address] Performed By: #### 5 7021-8 ####[facility] LABCLIA [id number] [place] [address] [place] MCH (RBC) [Entitic mass] 29.3 pg Normal 26.0-34.0 [facility] Comment on above: Order Comment: Speci men Type: BLOOD SPECIMENOrdering Facility: [facility] Address: [address] [place] [address] Performed By: #### 5 7021-8 ####[facility] LABCLIA [id number] [place] [address] [place] MCHC (RBC) [Mass/Vol] 33.6 g/dL Normal 30.5-36.0 [facility] Comment on above: Order Comment: Speci men Type: BLOOD SPECIMENOrdering Facility: [facility] Address: [address] [place] [address] Performed By: #### 5 7021-8 ####[facility] LABIA [id number] [place] [address] [place] MCV (RBC) [Entitic vol] 87.4 fL Normal 80.0-100.0 [facility] Comment on above: Order Comment: Speci men Type: BLOOD SPECIMENOrdering Facility: [facility] Address: [address] [place] [address] Performed By: #### 5 7021-8 ####[facility] LABIA [id number] [place] [address] [place] Monocytes (Bld) [#/Vol] 0.31 10*3/uL Normal <0.87 [facility] Comment on above: Order Comment: Speci men Type: BLOOD SPECIMENOrdering Facility: [facility] Address: [address] [place] [address] Performed By: #### 5 7021-8 ####[facility] LABIA [id number] [place] [address] [place] Monocytes/100 WBC (Bld) 7.5 % Normal [facility] Comment on above: Order Comment: Speci men Type: BLOOD SPECIMENOrdering Facility: [facility] Address: [address] [place] [address] Performed By: #### 5 7021-8 ####[facility] LABCLIA [id number] [place] [address] [place] Neutrophils (Bld) [#/Vol] 2.94 10*3/uL Normal 1.45-7.50 [facility] Comment on above: Order Comment: Speci men Type: BLOOD SPECIMENOrdering Facility: [facility] Address: [address] [place] [address] Performed By: #### 5 7021-8 ####[facility] LABCLIA [id number] [place] [address] [place] Neutrophils/100 WBC (Bld) 70.9 % Normal [facility] Comment on above: Order Comment: Speci men Type: BLOOD SPECIMENOrdering Facility: [facility] Address: [address] [place] [address] Performed By: #### 5 7021-8 ####[facility] LABCLIA [id number] [place] [address] [place] Nucleated RBC (Bld) [#/Vol] 10*3/uL Normal <0.01 [facility] Comment on above: Order Comment: Speci men Type: BLOOD SPECIMENOrdering Facility: [facility] Address: [address] [place] [address] Performed By: #### 5 7021-8 ####[facility] LABCLIA [id number] [place] [address] [place] Nucleated RBC/100 WBC (Bld) [Ratio] 0.0 /100 WBC Normal [facility] Comment on above: Order Comment: Speci men Type: BLOOD SPECIMENOrdering Facility: [facility] Address: [address] [place] [address] Performed By: #### 5 7021-8 ####[facility] LABCLIA [id number] [place] [address] [place] Platelet mean volume (Bld) [Entitic vol] 11.7 fL Normal 9.0-12.7 [facility] Comment on above: Order Comment: Speci men Type: BLOOD SPECIMENOrdering Facility: [facility] Address: [address] [place] [address] Performed By: #### 5 7021-8 ####[facility] LABIA [id number] [place] [address] [place] Platelets (Bld) [#/Vol] 154 10*3/uL Normal 150-400 [facility] Comment on above: Order Comment: Speci men Type: BLOOD SPECIMENOrdering Facility: [facility] Address: [address] [place] [address] Performed By: #### 5 7021-8 ####[facility] LABIA [id number] [place] [address] [place] RBC (Bld) [#/Vol] 5.01 10*6/uL Normal 4.20-6.00 [facility] Comment on above: Order Comment: Speci men Type: BLOOD SPECIMENOrdering Facility: [facility] Address: [address] [place] [address] Performed By: #### 5 7021-8 ####[facility] LABIA [id number] [place] [address] [place] WBC (Bld) [#/Vol] 4.15 10*3/uL Normal 3.70-11.00 [facility] Comment on above: Order Comment: Speci men Type: BLOOD SPECIMENOrdering Facility: [facility] Address: [address] [place] [address] Performed By: #### 5 7021-8 ####[facility] LABIA [id number] [place] [address] [place] CNOVon 03-08-2024 CNOV Office Visit (FAMPWS ) LAZARO GARZON ([id number]) 1955 M Date Time Provider Department 03/08/24 [...] Right 1988 LAPS SURG CHOLECYSTECTOMY W/CHOLANGIOGRAPHY 2004 [facility] - Dr. Bales OPEN REPAIR OF ROTATOR CUFF ACUTE Rotator cuff repair PERCUTANEOUS CORONARY INTERVENTION 2007 stent to LAD REPAIR EPIGASTRIC HERNIA,REDUC 07/19/2023 umbilical TONSILLECTOMY PRIMARY/SECONDARY Tonsillectomy FAMILY HISTORY Problem Relation Age of Onset Hypertension Mother Heart Mother Stroke Mother Allergies Mother Breast Cancer Mother Heart Father of [place] Allergies Father Asthma Daughter Allergies Sister Allergies Brother Allergies Daughter Social History Tobacco Us (more content not included)... Normal [facility] CNPNon 03-08-2024 CNPN Telephone (FAMPWS) LAZARO GARZON ([id number]) 1955 Date Time Provider Department 03/08/24 JAGJIT CHEEMA [facility] During your visit today, we recorded [...] Diagnosed: 02 (more content not included)... Normal [facility] CT ABD/PEL W IVCONon 024 CT ABD/PEL W IVCON * * *Final Report* * * DATE OF EXAM: Mar 08 2024 4:00PM [facility] 0530 - CT ABD/PEL W IVCON [...] from 2019. No new lesions or hepatomegaly Auto Winder: [facility] Transcribe Date/Time: Mar 08 2024 4:06P Dictated by : KHANH GERARD MD This examination was interpreted and the report reviewed and electronically signed by: KHANH GERARD MD on Mar 08 2024 4:12PM EST [id number] Normal [facility] CT Abdomen and Pelvis W cont rast [...] from 2019. No new lesions or hepatomegaly Auto Winder: [facility] Transcribe Date/Time: Mar 08 2024 4:06P Dictated by : KHANH GERARD MD This examination was interpreted and the report reviewed and electronically signed by: KHANH GERARD MD on Mar 08 2024 4:12PM EST [facility] * * *Final Report* * * DATE OF EXAM: Mar 08 2024 4:00PM [facility] 0530 - CT ABD/PEL W IVCON [...] lower lumbar posterior decompression Lower thorax: Clear [email or web address] * * *Final Report* * * DATE OF EXAM: Mar 08 2024 4:00PM [facility] 0530 - CT ABD/PEL W IVCON [...] from 2019. No new lesions or hepatomegaly Auto Winder: [facility] Transcribe Date/Time: Mar 08 2024 4:06P Dictated by : KHANH GERARD MD This examination was interpreted and the report reviewed and electronically signed by: KHANH GERARD MD on Mar 08 2024 4:12PM EST [facility] Radiology Study observation (narrative) [facility] CT Abdomen and Pelvis W cont rast IVOrdered By: Ccf Provider on 03-08-2024 [facility] Comprehensive metabolic 2000 panelon 03-08-2024 Albumin [Mass/Vol] 4.4 g/dL Normal 3.9-4.9 [facility] Comment on above: Order Comment: Speci men Type: BLOOD SPECIMENOrdering Facility: [facility] Address: [address] [place] [address] Performed By: #### 2 4323-8 ####[facility] LABCLIA [id number] [place] [address] [place] ALP [Catalytic activity/Vol] 78 U/L Normal 38-113 [facility] Comment on above: Order Comment: Speci men Type: BLOOD SPECIMENOrdering Facility: [facility] Address: [address] [place] [address] Performed By: #### 2 4323-8 ####[facility] LABCLIA [id number] [place] [address] [place] ALT [Catalytic activity/Vol] 31 U/L Normal 10-54 [facility] Comment on above: Order Comment: Speci men Type: BLOOD SPECIMENOrdering Facility: [facility] Address: [address] [place] [address] Performed By: #### 2 4323-8 ####[facility] LABCLIA [id number] [place] [id number] [place] Anion gap [Moles/Vol] 9 mmol/L Normal 8-15 [facility] Comment on above: Order Comment: Speci men Type: BLOOD SPECIMENOrdering Facility: [facility] Address: [address] [place] [address] Performed By: #### 2 4323-8 ####[facility] LABCLIA [id number] [place] [address] [place] AST [Catalytic activity/Vol] 23 U/L Normal 14-40 [facility] Comment on above: Order Comment: Speci men Type: BLOOD SPECIMENOrdering Facility: [facility] Address: [address] [place] [address] Performed By: #### 2 4323-8 ####[facility] LABCLIA [id number] [place] [address] [place] Bilirubin [Mass/Vol] 0.8 mg/dL Normal 0.2-1.3 [facility] Comment on above: Order Comment: Speci men Type: BLOOD SPECIMENOrdering Facility: [facility] Address: [address] [place] [address] Performed By: #### 2 4323-8 ####[facility] LABCLIA [id number] [place] [address] [place] Calcium [Mass/Vol] 9.3 mg/dL Normal 8.5-10.2 [facility] Comment on above: Order Comment: Speci men Type: BLOOD SPECIMENOrdering Facility: [facility] Address: [address] [place] [address] Performed By: #### 2 4323-8 ####[facility] LABCLIA [id number] [place] [address] [place] Chloride [Moles/Vol] 105 mmol/L Normal 98-107 [facility] Comment on above: Order Comment: Speci men Type: BLOOD SPECIMENOrdering Facility: [facility] Address: [address] [place] [address] Performed By: #### 2 4323-8 ####[facility] LABCLIA [id number] [place] [address] [place] CO2 [Moles/Vol] 26 mmol/L Normal 22-30 [facility] Comment on above: Order Comment: Speci men Type: BLOOD SPECIMENOrdering Facility: [facility] Address: [address] [place] [address] Performed By: #### 2 4323-8 ####[facility] LABCLIA [id number] [place] [address] [place] Creatinine [Mass/Vol] 0.97 mg/dL Normal 0.73-1.22 [facility] Comment on above: Order Comment: Speci men Type: BLOOD SPECIMENOrdering Facility: [facility] Address: [address] [place] [address] Performed By: #### 2 4323-8 ####[facility] LABIA [id number] [place] [address] [place] Creatinine and Glomerular filtration rate.predicted panel (S/P/Bld) 86 mL/min/1.73m??? Normal >=60 [facility] Comment on above: Order Comment: Speci men Type: BLOOD SPECIMENOrdering Facility: [facility] Address: [address] [place] [address] Result Comment: Jayshree mated Glomerular Filtration Rate [...] actual GFR. Performed By: #### 2 4323-8 ####[facility] LABCLIA [id number] [place] [address] [place] Glucose [Mass/Vol] 201 mg/dL High 74-99 [facility] Comment on above: Order Comment: Speci men Type: BLOOD SPECIMENOrdering Facility: [facility] Address: [address] [place] [address] Result Comment: The [place] [employer] (ADA) provides guidance for cutoff [...] Standards of Medical Care in Diabetes 2016, [place] [employer]. Diabetes Care. 2016.39(Suppl 1). Performed By: #### 2 4323-8 ####[facility] LABCLIA [id number] [place] [id number] [place] Potassium [Moles/Vol] 3.5 mmol/L Low 3.7-5.1 [facility] Comment on above: Order Comment: Speci men Type: BLOOD SPECIMENOrdering Facility: [facility] Address: [address] [place] [address] Performed By: #### 2 4323-8 ####[facility] LABCLIA [id number] [address] [address] [place] Protein [Mass/Vol] 7.3 g/dL Normal 6.3-8.0 [facility] Comment on above: Order Comment: Speci men Type: BLOOD SPECIMENOrdering Facility: [facility] Address: [address] [place] [address] Performed By: #### 2 4323-8 ####[facility] LABIA [id number] [place] [id number] [place] Sodium [Moles/Vol] 140 mmol/L Normal 136-144 [facility] Comment on above: Order Comment: Speci men Type: BLOOD SPECIMENOrdering Facility: [facility] Address: [address] [place] [address] Performed By: #### 2 4323-8 ####[facility] LABIA [id number] [place] [address] [place] Urea nitrogen [Mass/Vol] 14 mg/dL Normal 9-24 [facility] Comment on above: Order Comment: Speci men Type: BLOOD SPECIMENOrdering Facility: [facility] Address: [address] [place] [address] Performed By: #### 2 4323-8 ####[facility] [id number] [place] [address] [place] Thoracic Spine 3 Viewson Thoracic Spine 3 Views [facility] [address] [place] [address] Thoracic Spine 3 Views MR#: [id number] Acct: [id number] Name: LAZARO GARZON Rep #: [id number] : 1955 M 68 From: Carrillo Quijano MD PCP: Dr. Jagjit Cheema MD Status: DEP AMB Study: Thoracic Spine 3 Views Date of Exam: 01/15/24 Exam# [id number] Ordering Dr: Asuncion Bardales :[id number] INDICATION: PAIN EXAMINATION/TECHNIQUE: X-RAY - XR Spine [...] CC: Asuncion Bardales; Dr. Jagjit Cheema MD Auto Winder: Signed Normal [facility] CBC W Auto Differential pane l (Bld)on 12-13-2023 Basophils (Bld) [#/Vol] 0.04 10*3/uL [facility] Basophils/100 WBC (Bld) 0.6 % [facility] Differential cell count method Nom (Bld) Auto [facility] Eosinophils (Bld) [#/Vol] 0.08 10*3/uL [facility] Eosinophils/100 WBC (Bld) 1.1 % [facility] Erythrocyte distribution width (RBC) [Ratio] 13.1 % 11.5 - 15.0 % [facility] Hematocrit (Bld) [Volume fraction] 47.9 % 39.0 - 51.0 % [facility] Hemoglobin (Bld) [Mass/Vol] 16.7 g/dL 13.0 - 17.0 g/dL [facility] Immature granulocytes (Bld) [#/Vol] [facility] Immature granulocytes/100 WBC (Bld) 0.3 % [facility] Lymphocytes (Bld) [#/Vol] 1.21 10*3/uL [facility] Lymphocytes/100 WBC (Bld) 16.8 % [facility] MCH (RBC) [Entitic mass] 29.6 pg 26.0 - 34.0 pg [facility] MCHC (RBC) [Mass/Vol] 34.9 g/dL 30.5 - 36.0 g/dL [facility] MCV (RBC) [Entitic vol] 84.9 fL 80.0 - 100.0 fL [facility] Monocytes (Bld) [#/Vol] 0.71 10*3/uL NINF [facility] Monocytes/100 WBC (Bld) 9.8 % [facility] Neutrophils (Bld) [#/Vol] 5.15 10*3/uL [facility] Neutrophils/100 WBC (Bld) 71.4 % [facility] Nucleated RBC (Bld) [#/Vol] NINF [facility] Nucleated RBC/100 WBC (Bld) [Ratio] 0.0 % /100 WBC [facility] Platelet mean volume (Bld) [Entitic vol] 11.2 fL 9.0 - 12.7 fL [facility] Platelets (Bld) [#/Vol] 168 10*3/uL [facility] RBC (Bld) [#/Vol] 5.64 10*6/uL 4.20 - 6.00 m/uL [facility] WBC (Bld) [#/Vol] 7.21 10*3/uL [facility] Comprehensive metabolic 2000 panelOrdered By: Elizabeth Malone on 12-13-2023 Albumin [Mass/Vol] 4.7 g/dL 3.9 - 4.9 g/dL [facility] ALP [Catalytic activity/Vol] 90 U/L 38 - 113 U/L [facility] ALT [Catalytic activity/Vol] 31 U/L 10 - 54 U/L [facility] Anion gap [Moles/Vol] 12 mmol/L 8 - 15 mmol/L [facility] AST [Catalytic activity/Vol] 21 U/L 14 - 40 U/L [facility] Bilirubin [Mass/Vol] 0.8 mg/dL 0.2 - 1 .3 mg/dL [facility] [facility] Calcium [Mass/Vol] 9.3 mg/dL 8.5 - 10. 2 mg/dL [facility] Chloride [Moles/Vol] 105 mmol/L 98 - 10 7 mmol/L [facility] CO2 [Moles/Vol] 23 mmol/L 22 - 30 mmol/L [facility] Creatinine [Mass/Vol] 0.88 mg/dL 0.73 - 1.22 mg/dL [facility] GFR/1.73 sq M.predicted among non-blacks MDRD (S/P/Bld) [Vol rate/Area] 95 mL/min/{1.73_m2} - PINF [facility] Comment on above: Estimated Glomerular Filtration [...] [Mass/Vol] 79 mg/dL 74 - 99 mg/dL [facility] Comment on above: The [place] Diab[employer] Association (ADA) provides guidance for [...] Standards of Medical Care in Diabetes 2016, [place] [employer]. Diabetes Care. 2016.39(Suppl 1). Interpretation and review of laboratory results Abnormal [facility] Potassium [Moles/Vol] 3.5 mmol/L Low 3.7 - 5.1 mmol/L [facility] Protein [Mass/Vol] 7.9 g/dL 6.3 - 8.0 g/dL [facility] Sodium [Moles/Vol] 140 mmol/L 136 - 144 mmol/L [facility] Urea nitrogen [Mass/Vol] 18 mg/dL 9 - 24 mg/dL [facility] Basophil percentageOrdered B y: Flores lGover on 10-18-2023 Bilirubin [Mass/Vol] 1.00 mg/dL 0.20-1.00 [facility] Comment on above: For patients on eltr ombopag therapy, use of Dimension Docena TBIL is not recommended. Chloride [Moles/Vol] 110 mmol/L 98-107 [facility] Cholesterol [Mass/Vol] 75 mg/dL <200 [facility] Comment on above: <200 mg/dL Desirable 200-240 mg/dL Borderline >240 mg/dL High Risk Glucose [Mass/Vol] 119 mg/dL 74-106 [facility] Comment on above: Fasting Glucose resu lt from 100 to 125 mg/dL suggests IMPAIRED HOMEOSTASIS per A.D.A. criteria. Hemoglobin (Bld) [Mass/Vol] 15.3 g/dL 13.0-16.5 [facility] Potassium [Moles/Vol] 3.6 mmol/L 3.5-5.1 [facility] Protein [Mass/Vol] 7.2 g/dL 6.4-8.2 [facility] Sodium [Moles/Vol] 141 mmol/L 136-145 [facility] Triglyceride [Mass/Vol] 147 mg/dL <199 [facility] Comment on above: The drugs N-Acetylcy steine and Metamizole may falsely depress this assay.Serum Triglycerides Reference Interval Normal <150 mg/dL Borderline high 150 - 199 mg/dL High 200 - 499 mg/dL Very High > or = 500 mg/dL WBC (Bld) [#/Vol] 4.6 10*3/uL 4.4-11.0 [facility] Determination of erythrocyte mean corpuscular volume (MCV)Ordered By: Flores Glover on 10-18-2023 MCV (RBC) [Entitic vol] 86.7 fL 80-94 [facility] Erythrocyte distribution wid th ratioOrdered By: Flores Glover on 10-18-2023 Erythrocyte distribution width (RBC) [Ratio] 14.0 % 11.6-14.6 [facility] Erythrocyte distribution wid th standard deviationOrdered By: Flores Glover on 10-18-2023 Erythrocyte distribution width (RBC) [Entitic vol] 44.5 fL 35.1-43.9 [facility] Hematocrit Auto (Bld) [Volum e fraction]Ordered By: Flores Glover on 10-18-2023 Hematocrit (Bld) [Volume fraction] 44.4 % 40-54 [facility] Laboratory - Chemistry and C hemistry - challengeOrdered By: Flores Glover on 10-18-2023 Albumin/Globulin [Mass ratio] 1.2 {ratio} 0.9-2.4 [facility] ALP [Catalytic activity/Vol] 78 U/L 45-117 [facility] ALT [Catalytic activity/Vol] 33 U/L 16-61 [facility] Cholesterol in HDL [Mass/Vol] 28 mg/dL >40 [facility] Comment on above: The drugs N-Acetylcy steine and Metamizole may falsely depress this assay. Reference Range HDL <40 mg/dL Low HDL Cholesterol HDL >or= 60 mg/dL High HDL Cholesterol Cholesterol in LDL [Mass/Vol] 18 mg/dL 0-130 [facility] CO2 [Moles/Vol] 26.0 mmol/L 21.0-32.0 [facility] Globulin (S) [Mass/Vol] 3.2 g/dL 2.2-4.2 [facility] Magnesium [Mass/Vol] 1.9 mg/dL 1.6-2.6 [facility] Urea nitrogen/Creatinine [Mass ratio] 15.8 mg/mg 10-20 [facility] Laboratory - Hematology and Cell countsOrdered By: Flores Glover on 10-18-2023 MCH (RBC) [Entitic mass] 29.9 pg 27.0-32.0 [facility] MCHC (RBC) [Mass/Vol] 34.5 g/dL 32-36 [facility] Platelet mean volume (Bld) [Entitic vol] 11.6 fL 6.2-12.0 [facility] Platelets (Bld) [#/Vol] 130 10*3/uL 150-450 [facility] No Panel InformationOrdered By: Flores Glover on 10-18-2023 Estimated GFR (MDRD) Amer 102 mL/min >60 [facility] Comment on above: GFR Calc Estimated GFR (MDRD) Non-Af Amer 84 mL/min >60 [facility] Comment on above: Non- GFR Calc VLDL Cholesterol 29 mg/dL 5-40 [facility] RBC Auto (Bld) [#/Vol]Ordere d By: Flores Glover on 10-18-2023 RBC (Bld) [#/Vol] 5.12 10*6/uL 4.6-6.2 [facility] Serum or plasma calcium peterson urement (mass/volume)Ordered By: Flores Glover on 10-18-2023 Calcium [Mass/Vol] 8.7 mg/dL 8.5-10.1 [facility] Serum or plasma creatinine m easurement (mass/volume)Ordered By: Flores Glover on 10-18-2023 Creatinine [Mass/Vol] 0.95 mg/dL 0.70-1.30 [facility] Comment on above: The validity of the calculated GFR & GFRAA in patients over 70 years has not been determined. Clinical correlation is essential. Serum or plasma urea nitroge n measurement (mass/volume)Ordered By: Floresduncan Glover on 10-18-2023 Urea nitrogen [Mass/Vol] 15 mg/dL 7-18 [facility] Thin prep Papanicolaou smear with manual screeningOrdered By: Flores Adalberto on 10-18-2023 Thin prep Papanicolaou smear with manual screening 4.0 g/dL 3.2-5.0 [facility] Thin prep Papanicolaou smear with manual screening 19 U/L 15-37 [facility] Thin prep Papanicolaou smear with manual screening 5 5-15 [facility] ANES POSTPROC EVALon 024 ANES POSTPROC EVAL HNO ID: [id number] Author: VEE LOVING MD Service: Anesthesiology Author Type: Anesthesiologist Type: Anesthesia Postprocedure Evaluation Filed: 07/19/2023 10:38 Note Text: POST ANESTHESIA EVALUATION NOTE : 1955 Procedure Summary Date: 07/19/23 Room / Location: [place] [address] / [place] Anesthesia Start: 900 Anesthesia Stop: 100 [...] July 19, 2023 TIME: 10:38 AM CSN: [id number] [facility] ANES PRE-OPon 07-19-2023 ANES PRE-OP HNO ID: [id number] Author: VEE LOVING MD Service: Anesthesiology Author Type: Anesthesiologist Type: Anesthesia Preprocedure Evaluation Filed: 07/19/2023 08:12 Note Text: ANESTHESIOLOGY DAY OF SURGERY NOTE : 1955 Procedure Information Date/Time: 07/19/23855 Procedure: HERNIORRHAPHY UMBILICAL REDUCIBLE 3cm-10cm (Abdomen) Location: [place] / [place] Surgeons: Robby Bales MD Estimated body [...] and consent discussed: yes. Patient / Responsible Republican agrees to proceed: yes Patient / Surrogate [...] July 19, 2023 TIME: 8:11 AM CSN: [id number] Normal [facility] HISTORY PHYSICALon HISTORY PHYSICAL HNO ID: [id number] Author: ROBBY BALES MD Service: General Surgery [...] Right 1988 LAPS SURG CHOLECYSTECTOMY W/CHOLANGIOGRAPHY 2004 [facility] - Dr. Bales OPEN REPAIR OF ROTATOR [...] Mother Breast Cancer Mother Heart Father of OR Allergies Father Asthma Daughter Allergies Sister Allergies Brother Allergies Daughter REVIEW OF SYMPTOMS: The review of systems data was entered by the nurse and reviewed by me Nursing Notes: (more content not included)... [facility] OPERATIVE NOon 07-19-2023 OPERATIVE NO HNO ID: [id number] Author: ROBBY BALES MD Service: General Surgery Author Type: Physician Type: Operative Report Filed: 07/19/2023 10:07 Note Text: OPERATIVE/PROCEDURE REPORT LOG ID: [id number] SURGERY/PROCEDURE DATE: 07/19/2023 INCISION/PROCEDURE START TIME: 9:18 AM INCISION CLOSE/PROCEDURE END TIME: 9:55 AM SURGEON(S)/PROCEDURALIST(S) AND TONGUE PRESSER(S): Surgeon(s) and Role: * Robby Bales MD - Primary Physician Assembler Metal Furniture: Anna Mccoy PA-C SURGERY/PROCEDURE(S): Umbilical hernia repair [...] procedure well. Anna Mccoy PA-C was my warehouse assistant. She assisted with retraction, visualization and performed skin closure. No additional surgeons or qualified residents were available. PRE-OP/PRE-PROCEDURE DIAGNOSIS: Umbilical hernia POST-OP/POST-PROCEDURE DIAGNOSIS: Same as Preop ESTIMATED BLOOD LOSS: < 25 mls SPECIMENS: None IMPLANTABLE DEVICES: Implant Name Type Inv. Item Serial No. Glaciologist Lot No. LRB No. Used Action MESH PARIETEX 6.6CM SMALL COLLAGEN SURGICAL PATCH SELF CENTER COMPOSITE - [id number] Mesh MESH PARIETEX 6.6CM SMALL COLLAGEN SURGICAL PATCH SELF CENTER COMPOSITE [employer] [id number] N/A 1 Implanted DRAINS: None COMPLICATIONS: None CLOSURE TECHNIQUE: Primary PARTICIPATION IN SURGERY/PROCEDURE: I/primary surgeon/proceduralist performed the procedure with assistance. SIGNATURE: Robby Bales III, MD PATIENT NAME: Lazaro Garzon DATE: July 19, 2023 TIME: 9:48 AM [facility] Absolute lymphocyte countOrd ered By: Flores Adalberto on 07-13-2023 Lymphocytes Auto (Unsp spec) [#/Vol] 0.84 10*3/uL 0.83-4.51 [facility] Automated lymphocyte count a s percentage of total leukocytesOrdered By: [facility] on 07-[facility]-2023 Lymphocytes/100 WBC Auto (Unsp spec) 23.8 % 19-41 [facility] Basophil percentageOrdered B y: [facility] on 07-13-2023 Basophils/100 WBC (Bld) 0.6 % 0-1 [facility] Eosinophils/100 WBC (Bld) 1.7 % 0-5 [facility] Hemoglobin (Bld) [Mass/Vol] 15.5 g/dL 13.0-16.5 [facility] Monocytes/100 WBC (Bld) 11.0 % 0-10 [facility] Neutrophils (Bld) [#/Vol] 2.2 10*3/uL 2.0-7.7 [facility] Neutrophils/100 WBC (Bld) 62.9 % 47-70 [facility] WBC (Bld) [#/Vol] 3.5 10*3/uL 4.4-11.0 [facility] Bilirubin [Mass/Vol] 1.10 mg/dL 0.20-1.00 [facility] Comment on above: For patients on eltr ombopag therapy, use of Dimension Docena TBIL is not recommended. Chloride [Moles/Vol] 108 mmol/L 98-107 [facility] Cholesterol [Mass/Vol] 77 mg/dL <200 [facility] Comment on above: <200 mg/dL Desirable 200-240 mg/dL Borderline >240 mg/dL High Risk Glucose [Mass/Vol] 116 mg/dL 74-106 [facility] Comment on above: Fasting Glucose resu lt from 100 to 125 mg/dL suggests IMPAIRED HOMEOSTASIS per A.D.A. criteria. Potassium [Moles/Vol] 4.0 mmol/L 3.5-5.1 [facility] Protein [Mass/Vol] 7.9 g/dL 6.4-8.2 [facility] Sodium [Moles/Vol] 137 mmol/L 136-145 [facility] Triglyceride [Mass/Vol] 90 mg/dL <199 [facility] Comment on above: The drugs N-Acetylcy steine and Metamizole may falsely depress this assay.Serum Triglycerides Reference Interval Normal <150 mg/dL Borderline high 150 - 199 mg/dL High 200 - 499 mg/dL Very High > or = 500 mg/dL Determination of erythrocyte mean corpuscular volume (MCV)Ordered By: Flores Glover on 07-13-2023 MCV (RBC) [Entitic vol] 86.6 fL 80-94 [facility] Direct bilirubinOrdered By: Flores Glover on 07-13-2023 Bilirubin.direct [Mass/Vol] 0.33 mg/dL 0.00-0.30 [facility] Erythrocyte distribution wid th ratioOrdered By: Flores Glover on 07-13-2023 Erythrocyte distribution width (RBC) [Ratio] 13.0 % 11.6-14.6 [facility] Erythrocyte distribution wid th standard deviationOrdered By: Flores Glover on 07-13-2023 Erythrocyte distribution width (RBC) [Entitic vol] 40.1 fL 35.1-43.9 [facility] Hematocrit Auto (Bld) [Volum e fraction]Ordered By: Flores Glover on 07-13-2023 Hematocrit (Bld) [Volume fraction] 46.0 % 40-54 [facility] High density lipoprotein (HD L) measurementOrdered By: Flores Glover on 07-13-2023 Cholesterol in HDL (Body fld) [Mass/Vol] 30 mg/dL >40 [facility] Comment on above: The drugs N-Acetylcy steine and Metamizole may falsely depress this assay. Reference Range HDL <40 mg/dL Low HDL Cholesterol HDL >or= 60 mg/dL High HDL Cholesterol Immature granulocytes/100 WB C Auto (Bld)Ordered By: Flores Glover on 07-13-2023 Immature granulocytes/100 WBC (Bld) 0.000 % 0.0-0.9 [facility] Comment on above: IG% - Immature Granu locytes (promyelocytes, myelocytes and metamyelocytes) > 1% indicates that a LEFT SHIFT is Present. Laboratory - Chemistry and C hemistry - challengeOrdered By: Flores Glover on 07-13-2023 Albumin/Globulin [Mass ratio] 1.2 {ratio} 0.9-2.4 [facility] ALP [Catalytic activity/Vol] 76 U/L 45-117 [facility] ALT [Catalytic activity/Vol] 59 U/L 16-61 [facility] CO2 [Moles/Vol] 28.0 mmol/L 21.0-32.0 [facility] Globulin (S) [Mass/Vol] 3.6 g/dL 2.2-4.2 [facility] Urea nitrogen/Creatinine [Mass ratio] 15.3 mg/mg 10-20 [facility] Laboratory - Hematology and Cell countsOrdered By: Flores Glover on 07-13-2023 MCH (RBC) [Entitic mass] 29.2 pg 27.0-32.0 [facility] MCHC (RBC) [Mass/Vol] 33.7 g/dL 32-36 [facility] Nucleated RBC/100 WBC (Bld) [Ratio] 0 % 0-5 [facility] Platelets (Bld) [#/Vol] 164 10*3/uL 150-450 [facility] Low density lipoprotein (LDL ) cholesterol measurementOrdered By: Flores Glover on 07-13-2023 Cholesterol in LDL (Body fld) [Moles/Vol] 29 mg/dL 0-130 [facility] No Panel InformationOrdered By: Flores Glover on 07-13-2023 Estimated GFR (MDRD) Amer 80 mL/min >60 [facility] Comment on above: GFR Calc Estimated GFR (MDRD) Non-Af Amer 66 mL/min >60 [facility] Comment on above: Non- GFR Calc Platelet mean volume Stephen-Ec ker (Bld) [Entitic vol]Ordered By: Flores Glover on 07-13-2023 Platelet mean volume (Bld) [Entitic vol] 10.8 fL 6.2-12.0 [facility] RBC Auto (Bld) [#/Vol]Ordere d By: Flores Glover on 07-13-2023 RBC (Bld) [#/Vol] 5.31 10*6/uL 4.6-6.2 [facility] Serum or plasma calcium peterson urement (mass/volume)Ordered By: Flores Glover on 07-13-2023 Calcium [Mass/Vol] 9.5 mg/dL 8.5-10.1 [facility] Serum or plasma creatinine m easurement (mass/volume)Ordered By: Flores Glover on 07-13-2023 Creatinine [Mass/Vol] 1.18 mg/dL 0.70-1.30 [facility] Comment on above: The validity of the calculated GFR & GFRAA in patients over 70 years has not been determined. Clinical correlation is essential. Serum or plasma urea nitroge n measurement (mass/volume)Ordered By: Flores Glover on 07-13-2023 Urea nitrogen [Mass/Vol] 18 mg/dL 7-18 [facility] Thin prep Papanicolaou smear with manual screeningOrdered By: Flores Glover on 07-13-2023 Thin prep Papanicolaou smear with manual screening 4.3 g/dL 3.2-5.0 [facility] Thin prep Papanicolaou smear with manual screening 32 U/L 15-37 [facility] Thin prep Papanicolaou smear with manual screening 1 5-15 [facility] Very low density lipoprotein (VLDL) cholesterol measurementOrdered By: Flores Glover on 07-13-2023 Cholesterol in VLDL Calc [Moles/Vol] 18 mg/dL 5-40 [facility] Basophil percentageOrdered B y: Gamal Ramos on 04-25-2023 Testosterone [Mass/Vol] 366.38 ng/dL [facility] Comment on above: CENTRAL 90% REFERENC E RANGES MALE AGE <50 197.44 - 669.58 ng/dL MALE AGE > or = 50 187.72 - 684.19 ng/dL FEMALE AGE <50 8.38 - 35.01 ng/dL FEMALE AGE > or = 50 <7.00 - 35.92 ng/dL Effective as of 01/12/21 No Panel InformationOrdered By: Gamal Ramos on 04-25-2023 Prostate Specific Antigen Screen 3.94 ng/mL 0.00-4.00 [facility] Comment on above: This test was perfor med using the TPSA assay method for the[employer] chemistry system. Values obtained with differentassay methods cannot be used interchangably.When changing PSA assays in the course of monitoring apatient, additional sequential testing should be carriedout to confirm baseline values. XR Foot - left AP and Latera l and obliqueon 04-03-2023 IMPRESSION: No radiographic evidence of acute osseous injury Auto Winder: OSMANI Transcribe Date/Time: Apr 03 2023 11:18A Dictated by : JERE DUNHAM MD This examination was interpreted and the report reviewed and electronically signed by: JERE DUNHAM MD on Apr 03 2023 11:19AM [facility] DIVISION OF RADIOLOGY * * *Final Report* [...] the interphalangeal joints. DIVISION OF RADIOLOGY Provider, [facility] Sukumar [facility] - 04/03/2023 * * *Final Report* * [...] No radiographic evidence of acute osseous injury Auto Winder: PSC Transcribe Date/Time: Apr 03 2023 11:18A Dictated by : JERE DUNHAM MD This examination was interpreted and the report reviewed and electronically signed by: JERE DUNHAM MD on Apr 03 2023 11:19AM EST [facility] Radiology Study observation (narrative) [facility] XR Foot - left AP and Latera l and obliqueOrdered By: [facility] Provider on 04-03-2023 [facility] CBC W Auto Differential pane l (Bld)on 12-20-2022 Basophils (Bld) [#/Vol] 0.03 10*3/uL <0.11 k/uL [facility] Basophils/100 WBC (Bld) 0.6 % [facility] Differential cell count method Nom (Bld) Auto [facility] Eosinophils (Bld) [#/Vol] 0.10 10*3/uL <0.46 k/uL [facility] Eosinophils/100 WBC (Bld) 1.9 % [facility] Erythrocyte distribution width (RBC) [Ratio] 13.0 % 11.5 - 15.0 % [facility] Hematocrit (Bld) [Volume fraction] 40.3 % 39.0 - 51.0 % [facility] Hemoglobin (Bld) [Mass/Vol] 13.4 g/dL 13.0 - 17.0 g/dL [facility] Immature granulocytes (Bld) [#/Vol] <0.10 k/uL [facility] Immature granulocytes/100 WBC (Bld) 0.4 % [facility] Lymphocytes (Bld) [#/Vol] 1.01 10*3/uL 1.00 - 4.00 k/uL [facility] Lymphocytes/100 WBC (Bld) 19.6 % [facility] MCH (RBC) [Entitic mass] 29.6 pg 26.0 - 34.0 pg [facility] MCHC (RBC) [Mass/Vol] 33.3 g/dL 30.5 - 36.0 g/dL [facility] MCV (RBC) [Entitic vol] 89.2 fL 80.0 - 100.0 fL [facility] Monocytes (Bld) [#/Vol] 0.45 10*3/uL <0.87 k/uL [facility] Monocytes/100 WBC (Bld) 8.8 % [facility] Neutrophils (Bld) [#/Vol] 3.53 10*3/uL 1.45 - 7.50 k/uL [facility] Neutrophils/100 WBC (Bld) 68.7 % [facility] Nucleated RBC (Bld) [#/Vol] <0.01 k/uL [facility] Nucleated RBC/100 WBC (Bld) [Ratio] 0.0 /100 WBC [facility] Platelet mean volume (Bld) [Entitic vol] 12.2 fL 9.0 - 12.7 fL [facility] Platelets (Bld) [#/Vol] 156 10*3/uL 150 - 400 k/uL [facility] RBC (Bld) [#/Vol] 4.52 10*6/uL 4.20 - 6.00 m/uL [facility] WBC (Bld) [#/Vol] 5.14 10*3/uL 3.70 - 11.00 k/uL [facility] Absolute lymphocyte countOrd ered By: Lucy Partida on 12-16-2022 Lymphocytes Auto (Unsp spec) [#/Vol] 0.25 10*3/uL 0.83-4.51 [facility] Acetaminophen level (mass/vo lume)Ordered By: Lucy Helga on 12-16-2022 Acetaminophen (Unsp spec) [Mass/Vol] 2.3 ug/mL 10.0-30.0 [facility] Basophil percentageOrdered B y: Lucy Partida on 12-16-2022 Basophils/100 WBC (Bld) 0.2 % 0-1 [facility] Bilirubin [Mass/Vol] 1.20 mg/dL 0.20-1.00 [facility] Comment on above: For patients on eltr ombopag therapy, use of Dimension Docena TBIL is not recommended. Chloride [Moles/Vol] 108 mmol/L 98-107 [facility] Eosinophils/100 WBC (Bld) 0.2 % 0-5 [facility] Glucose [Mass/Vol] 130 mg/dL 74-106 [facility] Comment on above: Fasting Glucose resu lt greater than or equal to 126 mg/dL suggests DIABETES MELLITUS per A.D.A. criteria. Neutrophils (Bld) [#/Vol] 3.5 10*3/uL 2.0-7.7 [facility] Neutrophils/100 WBC (Bld) 82.1 % 47-70 [facility] Potassium [Moles/Vol] 3.3 mmol/L 3.5-5.1 [facility] Protein [Mass/Vol] 6.1 g/dL 6.4-8.2 [facility] Sodium [Moles/Vol] 137 mmol/L 136-145 [facility] WBC (Bld) [#/Vol] 4.2 10*3/uL 4.4-11.0 [facility] Blood erythrocytes count (nu mber/volume)Ordered By: Lucy Partida on 12-16-2022 RBC (Bld) [#/Vol] 4.29 10*6/uL 4.6-6.2 [facility] Blood hemoglobin measurement (mass/volume)Ordered By: Lucy Partida on 12-16-2022 Hemoglobin (Bld) [Mass/Vol] 13.1 g/dL 13.0-16.5 [facility] Blood lymphocytes/100 leukoc ytesOrdered By: Lucy Partida on 12-16-2022 Lymphocytes/100 WBC (Bld) 5.9 % 19-41 [facility] Blood manual differential co mment interpretation (narrative result)Ordered By: Lucy Partida on 12-16-2022 Manual differential comment Ildefonso (Bld) [Interp] SCANNED [facility] Comment on above: LYMPHOPENIA Blood monocytes/100 leukocyt esOrdered By: Lucy Partida on 12-16-2022 Monocytes/100 WBC (Bld) 11.1 % 0-10 [facility] Blood platelet adequacy dete ction by light microscopyOrdered By: Lucy Partida on 12-16-2022 Platelets LM Ql (Bld) SLT DEC ADEQ [facility] Blood platelet mean volumeOr dered By: Lucy Partida on 12-16-2022 Platelet mean volume (Bld) [Entitic vol] 11.5 fL 6.2-12.0 [facility] Determination of erythrocyte mean corpuscular volume (MCV)Ordered By: Lucy Partida on 12-16-2022 MCV (RBC) [Entitic vol] 88.3 fL 80-94 [facility] Hematocrit Auto (Bld) [Volum e fraction]Ordered By: Lucy Partida on 12-16-2022 Hematocrit (Bld) [Volume fraction] 37.9 % 40-54 [facility] Laboratory - Chemistry and C hemistry - challengeOrdered By: Lucy Partida on 12-16-2022 ALP [Catalytic activity/Vol] 59 U/L 45-117 [facility] ALT [Catalytic activity/Vol] 41 U/L 16-61 [facility] CO2 [Moles/Vol] 22.0 mmol/L 21.0-32.0 [facility] Globulin (S) [Mass/Vol] 3.3 g/dL 2.2-4.2 [facility] Urea nitrogen/Creatinine [Mass ratio] 12.7 mg/mg 10-20 [facility] Laboratory - Hematology and Cell countsOrdered By: Lucy Partida on 12-16-2022 Erythrocyte distribution width (RBC) [Entitic vol] 42.5 fL 35.1-43.9 [facility] Erythrocyte distribution width (RBC) [Ratio] 13.2 % 11.6-14.6 [facility] Immature granulocytes/100 WBC (Bld) 0.500 % 0.0-0.9 [facility] Comment on above: IG% - Immature Granu locytes (promyelocytes, myelocytes and metamyelocytes) > 1% indicates that a LEFT SHIFT is Present. MCH (RBC) [Entitic mass] 30.5 pg 27.0-32.0 [facility] Nucleated RBC/100 WBC (Bld) [Ratio] 0 % 0-5 [facility] MCHC Auto (RBC) [Mass/Vol]Or dered By: Lucy Partida on 12-16-2022 MCHC (RBC) [Mass/Vol] 34.6 g/dL 32-36 [facility] No Panel InformationOrdered By: Lucy Partida on 12-16-2022 Estimated Creatinine Clearance Calc 84.38 ml/min [facility] Estimated GFR (MDRD) Amer 86 mL/min >60 [facility] Comment on above: GFR Calc Estimated GFR (MDRD) Non-Af Amer 71 mL/min >60 [facility] Comment on above: Non- GFR Calc Platelets bldOrdered By: Michael Partida on 12-16-2022 Platelets (Bld) [#/Vol] 92 10*3/uL 150-450 [facility] Review by pathologistOrdered By: Lucy Partida on 12-16-2022 Pathologist review Ildefonso (Unsp spec) [Interp] Reviewed [facility] Comment on above: Previous reported re sult: October verona Edited by: RGOCHRISTIANO on 12/16/22:1022Mild Thrombocytopenia.Clinical correlation necessary.Jameson Oden M.D. 12/16/22 AMENDED REPORT 12/16/22 1022 PATH REV previously reported as: October verona Serum or plasma albumin peterson urement (mass/volume)Ordered By: Lucy Partida on 12-16-2022 Albumin [Mass/Vol] 2.8 g/dL 3.2-5.0 [facility] Serum or plasma albumin/glob ulin mass ratioOrdered By: Lucy Partida on 12-16-2022 Albumin/Globulin [Mass ratio] 0.8 {ratio} 0.9-2.4 [facility] Serum or plasma calcium peterson urement (mass/volume)Ordered By: Lucy Partida on 12-16-2022 Calcium [Mass/Vol] 7.8 mg/dL 8.5-10.1 [facility] Serum or plasma creatinine m easurement (mass/volume)Ordered By: Lucy Partida on 12-16-2022 Creatinine [Mass/Vol] 1.10 mg/dL 0.70-1.30 [facility] Comment on above: The validity of the calculated GFR & GFRAA in patients over 70 years has not been determined. Clinical correlation is essential. Serum or plasma urea nitroge n measurement (mass/volume)Ordered By: Lucy Partida on 12-16-2022 Urea nitrogen [Mass/Vol] 14 mg/dL 7-18 [facility] Thin prep Papanicolaou smear with manual screeningOrdered By: Lucy Partida on 12-16-2022 Thin prep Papanicolaou smear with manual screening 34 U/L 15-37 [facility] Thin prep Papanicolaou smear with manual screening 7 5-15 [facility] Absolute lymphocyte countOrd ered By: Nahum Dias on 12-15-2022 Lymphocytes Auto (Unsp spec) [#/Vol] 0.19 10*3/uL 0.83-4.51 [facility] Basophil percentageOrdered B y: Nahum Dias on 12-15-2022 Basophils/100 WBC (Bld) 0.2 % 0-1 [facility] Bilirubin [Mass/Vol] 1.40 mg/dL 0.20-1.00 [facility] Comment on above: For patients on eltr ombopag therapy, use of Dimension Docena TBIL is not recommended. Chloride [Moles/Vol] 105 mmol/L 98-107 [facility] Eosinophils/100 WBC (Bld) 0.7 % 0-5 [facility] Glucose [Mass/Vol] 131 mg/dL 74-106 [facility] Comment on above: Fasting Glucose resu lt greater than or equal to 126 mg/dL suggests DIABETES MELLITUS per A.D.A. criteria. Lactate [Moles/Vol] 1.7 mmol/L 0.4-2.0 [facility] Neutrophils (Bld) [#/Vol] 3.9 10*3/uL 2.0-7.7 [facility] Neutrophils/100 WBC (Bld) 90.2 % 47-70 [facility] Potassium [Moles/Vol] 3.3 mmol/L 3.5-5.1 [facility] Protein [Mass/Vol] 7.4 g/dL 6.4-8.2 [facility] Sodium [Moles/Vol] 135 mmol/L 136-145 [facility] WBC (Bld) [#/Vol] 4.3 10*3/uL 4.4-11.0 [facility] Blood erythrocytes count (nu mber/volume)Ordered By: Nahum Dias on 12-15-2022 RBC (Bld) [#/Vol] 4.61 10*6/uL 4.6-6.2 [facility] Blood hemoglobin measurement (mass/volume)Ordered By: Nauhm Dias on 12-15-2022 Hemoglobin (Bld) [Mass/Vol] 14.4 g/dL 13.0-16.5 [facility] Blood lymphocytes/100 leukoc ytesOrdered By: Nahum Dias on 12-15-2022 Lymphocytes/100 WBC (Bld) 4.4 % 19-41 [facility] Blood manual differential co mment interpretation (narrative result)Ordered By: Nahum Dias on 12-15-2022 Manual differential comment Ildefonso (Bld) [Interp] SCANNED [facility] Comment on above: LYMPHOPENIA NOTEDTHR OMBOCYTOPENIA NOTED Blood monocytes/100 leukocyt esOrdered By: Nahum Dias on 12-15-2022 Monocytes/100 WBC (Bld) 4.0 % 0-10 [facility] Blood platelet mean volumeOr dered By: Nahum Dias on 12-15-2022 Platelet mean volume (Bld) [Entitic vol] 11.6 fL 6.2-12.0 [facility] Determination of erythrocyte mean corpuscular volume (MCV)Ordered By: Nahum Dias on 12-15-2022 MCV (RBC) [Entitic vol] 89.2 fL 80-94 [facility] Hematocrit Auto (Bld) [Volum e fraction]Ordered By: Nahum Dias on 12-15-2022 Hematocrit (Bld) [Volume fraction] 41.1 % 40-54 [facility] INR in Blood by Coagulation assayOrdered By: Nahum Dias on 12-15-2022 INR Coag (Bld) [Relative time] 1.2 {INR} [facility] Laboratory - Chemistry and C hemistry - challengeOrdered By: Nhaum Dias on 12-15-2022 ALP [Catalytic activity/Vol] 77 U/L 45-117 [facility] ALT [Catalytic activity/Vol] 47 U/L 16-61 [facility] CO2 [Moles/Vol] 21.0 mmol/L 21.0-32.0 [facility] Globulin (S) [Mass/Vol] 3.9 g/dL 2.2-4.2 [facility] Urea nitrogen/Creatinine [Mass ratio] 12.5 mg/mg 10-20 [facility] Laboratory - Chemistry and C hemistry - challengeOrdered By: Lucy Partida on 12-15-2022 Magnesium [Mass/Vol] 1.8 mg/dL 1.6-2.6 [facility] - CoagulationOrde red By: Nahum Dias on 12-15-2022 aPTT Coag (Bld) [Time] 32.2 s 24.1-36.2 [facility] PT Coag (PPP) [Time] 14.9 s 11.7-14.9 [facility] Laboratory - Hematology and Cell countsOrdered By: Nahum Dias on 12-15-2022 Erythrocyte distribution width (RBC) [Entitic vol] 43.3 fL 35.1-43.9 [facility] Erythrocyte distribution width (RBC) [Ratio] 13.2 % 11.6-14.6 [facility] Immature granulocytes/100 WBC (Bld) 0.500 % 0.0-0.9 [facility] Comment on above: IG% - Immature Granu locytes (promyelocytes, myelocytes and metamyelocytes) > 1% indicates that a LEFT SHIFT is Present. MCH (RBC) [Entitic mass] 31.2 pg 27.0-32.0 [facility] Nucleated RBC/100 WBC (Bld) [Ratio] 0 % 0-5 [facility] MCHC Auto (RBC) [Mass/Vol]Or dered By: Nahum Dias on 12-15-2022 MCHC (RBC) [Mass/Vol] 35.0 g/dL 32-36 [facility] No Panel InformationOrdered By: Nahum Dias on 12-15-2022 Estimated Creatinine Clearance Calc 68.24 ml/min [facility] Estimated GFR (MDRD) Amer 68 mL/min >60 [facility] Comment on above: GFR Calc Estimated GFR (MDRD) Non-Af Amer 56 mL/min >60 [facility] Comment on above: Non- GFR Calc Platelets bldOrdered By: Olivia Dias on 12-15-2022 Platelets (Bld) [#/Vol] 87 10*3/uL 150-450 [facility] Respiratory pathogens detect ion panel by molecular detection methodOrdered By: Lucy Partida on 12-15-2022 Respiratory pathogens DNA and RNA panel ASHLEY+probe (Resp) [facility] Serum or plasma albumin peterson urement (mass/volume)Ordered By: Nahum Dias on 12-15-2022 Albumin [Mass/Vol] 3.5 g/dL 3.2-5.0 [facility] Serum or plasma albumin/glob ulin mass ratioOrdered By: Nahum Dias on 12-15-2022 Albumin/Globulin [Mass ratio] 0.9 {ratio} 0.9-2.4 [facility] Serum or plasma calcium peterson urement (mass/volume)Ordered By: Nahum Dias on 12-15-2022 Calcium [Mass/Vol] 8.6 mg/dL 8.5-10.1 [facility] Serum or plasma creatinine m easurement (mass/volume)Ordered By: Nahum Dias on 12-15-2022 Creatinine [Mass/Vol] 1.36 mg/dL 0.70-1.30 [facility] Comment on above: The validity of the calculated GFR & GFRAA in patients over 70 years has not been determined. Clinical correlation is essential. Serum or plasma urea nitroge n measurement (mass/volume)Ordered By: Nahum Dias on 12-15-2022 Urea nitrogen [Mass/Vol] 17 mg/dL 7-18 [facility] Thin prep Papanicolaou smear with manual screeningOrdered By: Nahum Dias on 12-15-2022 Thin prep Papanicolaou smear with manual screening 36 U/L 15-37 [facility] Thin prep Papanicolaou smear with manual screening 9 5-15 [facility] Absolute lymphocyte countOrd ered By: Vee Horton on 12-14-2022 Lymphocytes Auto (Unsp spec) [#/Vol] 1.07 10*3/uL 0.83-4.51 [facility] Basophil percentageOrdered B y: Vee Horton on 12-14-2022 Basophil percentage >100 SEEN /hpf 0-5 [facility] Lactate [Moles/Vol] 1.4 mmol/L 0.4-2.0 [facility] Basophils/100 WBC (Bld) 0.2 % 0-1 [facility] Bilirubin [Mass/Vol] 2.30 mg/dL 0.20-1.00 [facility] Comment on above: For patients on eltr ombopag therapy, use of Dimension Docena TBIL is not recommended. Chloride [Moles/Vol] 105 mmol/L 98-107 [facility] Eosinophils/100 WBC (Bld) 0.1 % 0-5 [facility] Glucose [Mass/Vol] 100 mg/dL 74-106 [facility] Comment on above: Fasting Glucose resu lt from 100 to 125 mg/dL suggests IMPAIRED HOMEOSTASIS per A.D.A. criteria. Neutrophils (Bld) [#/Vol] 13.5 10*3/uL 2.0-7.7 [facility] Neutrophils/100 WBC (Bld) 85.4 % 47-70 [facility] Potassium [Moles/Vol] 3.0 mmol/L 3.5-5.1 [facility] Protein [Mass/Vol] 7.1 g/dL 6.4-8.2 [facility] Sodium [Moles/Vol] 138 mmol/L 136-145 [facility] WBC (Bld) [#/Vol] 15.8 10*3/uL 4.4-11.0 [facility] Bilirubin Test strip Ql (U)O rdered By: Vee Horton on 12-14-2022 Bilirubin Ql (U) 3 mg/dL Negative [facility] Comment on above: COLOR OF URINE MAY A FFECT DIPSTICK RESULTS. Blood erythrocytes count (nu mber/volume)Ordered By: Vee Horton on 12-14-2022 RBC (Bld) [#/Vol] 5.18 10*6/uL 4.6-6.2 [facility] Blood hemoglobin measurement (mass/volume)Ordered By: Vee Horton on 12-14-2022 Hemoglobin (Bld) [Mass/Vol] 15.7 g/dL 13.0-16.5 [facility] Blood lymphocytes/100 leukoc ytesOrdered By: Vee Horton on 12-14-2022 Lymphocytes/100 WBC (Bld) 6.8 % 19-41 [facility] Blood monocytes/100 leukocyt esOrdered By: Vee Horton on 12-14-2022 Monocytes/100 WBC (Bld) 6.9 % 0-10 [facility] Blood platelet mean volumeOr dered By: Vee Horton on 12-14-2022 Platelet mean volume (Bld) [Entitic vol] 11.9 fL 6.2-12.0 [facility] Culture, urineOrdered By: Matt Horton on 12-14-2022 Bacteria identified Cx Nom (U) Escherichia coli [facility] Determination of erythrocyte mean corpuscular volume (MCV)Ordered By: Vee Horton on 12-14-2022 MCV (RBC) [Entitic vol] 90.2 fL 80-94 [facility] Hematocrit Auto (Bld) [Volum e fraction]Ordered By: Vee Horton on 12-14-2022 Hematocrit (Bld) [Volume fraction] 46.7 % 40-54 [facility] INR in Blood by Coagulation assayOrdered By: Vee Horton on 12-14-2022 INR Coag (Bld) [Relative time] 1.1 {INR} [facility] Ketones Test strip Ql (U)Ord ered By: Vee Horton on 12-14-2022 Ketones Ql (U) 15 mg/dl Negative [facility] Laboratory - Chemistry and C hemistry - challengeOrdered By: Vee Horton on 12-14-2022 ALP [Catalytic activity/Vol] 79 U/L 45-117 [facility] ALT [Catalytic activity/Vol] 25 U/L 16-61 [facility] CO2 [Moles/Vol] 28.0 mmol/L 21.0-32.0 [facility] Globulin (S) [Mass/Vol] 3.6 g/dL 2.2-4.2 [facility] Urea nitrogen/Creatinine [Mass ratio] 11.1 mg/mg 10-20 [facility] Laboratory - CoagulationOrde red By: Vee Horton on 12-14-2022 aPTT Coag (Bld) [Time] 34.2 s 24.1-36.2 [facility] PT Coag (PPP) [Time] 14.5 s 11.7-14.9 [facility] - Hematology and Cell countsOrdered By: Vee Horton on 12-14-2022 Erythrocyte distribution width (RBC) [Entitic vol] 43.7 fL 35.1-43.9 [facility] Erythrocyte distribution width (RBC) [Ratio] 13.3 % 11.6-14.6 [facility] Immature granulocytes/100 WBC (Bld) 0.600 % 0.0-0.9 [facility] Comment on above: IG% - Immature Granu locytes (promyelocytes, myelocytes and metamyelocytes) > 1% indicates that a LEFT SHIFT is Present. MCH (RBC) [Entitic mass] 30.3 pg 27.0-32.0 [facility] Nucleated RBC/100 WBC (Bld) [Ratio] 0 % 0-5 [facility] MCHC Auto (RBC) [Mass/Vol]Or dered By: Vee Horton on 12-14-2022 MCHC (RBC) [Mass/Vol] 33.6 g/dL 32-36 [facility] Mucus LM Ql (Urine sed)Order ed By: Vee Horton on 12-14-2022 Mucus Ql (Urine sed) 0 SEEN /hpf [facility] Nitrite Test strip Ql (U)Ord ered By: Vee Horton on 12-14-2022 Nitrite Ql (U) Positive Negative [facility] No Panel InformationOrdered By: Vee Horton on 12-14-2022 Urine Transitional Epithelial Cells 0-5 SEEN /hpf 0-5 [facility] Estimated Creatinine Clearance Calc 68.75 ml/min [facility] Estimated GFR (MDRD) Amer 68 mL/min >60 [facility] Comment on above: GFR Calc Estimated GFR (MDRD) Non-Af Amer 56 mL/min >60 [facility] Comment on above: Non- GFR Calc Platelets bldOrdered By: Funmi Horton on 12-14-2022 Platelets (Bld) [#/Vol] 138 10*3/uL 150-450 [facility] Protein Test strip Ql (U)Ord ered By: Vee Horton on 12-14-2022 Protein Ql (U) 100 mg/dl Negative [facility] Serum or plasma albumin peterson urement (mass/volume)Ordered By: Vee Horton on 12-14-2022 Albumin [Mass/Vol] 3.5 g/dL 3.2-5.0 [facility] Serum or plasma albumin/glob ulin mass ratioOrdered By: Vee Horton on 12-14-2022 Albumin/Globulin [Mass ratio] 1.0 {ratio} 0.9-2.4 [facility] Serum or plasma calcium peterson urement (mass/volume)Ordered By: Vee Horton on 12-14-2022 Calcium [Mass/Vol] 8.8 mg/dL 8.5-10.1 [facility] Serum or plasma creatinine m easurement (mass/volume)Ordered By: Vee Horton on 12-14-2022 Creatinine [Mass/Vol] 1.35 mg/dL 0.70-1.30 [facility] Comment on above: The validity of the calculated GFR & GFRAA in patients over 70 years has not been determined. Clinical correlation is essential. Serum or plasma urea nitroge n measurement (mass/volume)Ordered By: Vee Horton on 12-14-2022 Urea nitrogen [Mass/Vol] 15 mg/dL 7-18 [facility] Squamous epithelial cells de tection in urine sediment by light microscopyOrdered By: Vee Horton on 12-14-2022 Epithelial cells.squamous LM Ql (Urine sed) 0-5 SEEN /hpf 0-5 [facility] Thin prep Papanicolaou smear with manual screeningOrdered By: Vee Horton on 12-14-2022 Thin prep Papanicolaou smear with manual screening 10 U/L 15-37 [facility] Thin prep Papanicolaou smear with manual screening 5 5-15 [facility] UA DIP, URINE (POC)on 2022 BILIRUBIN UA (POCT) Small Abnormal Negative [facility] CLARITY UA (POCT) Cloudy [facility] COLOR UA (POCT) Kath [facility] GLUCOSE UA (POCT) Negative Negative mg/dL [facility] HEMOGLOBIN/BLOOD UA (POCT) Large Abnormal Negative [facility] KETONE UA (POCT) Trace Negative mg/dL [facility] LEUKOCYTES UA (POCT) Small Abnormal Negative [facility] NITRITE UA (POCT) Positive Abnormal Negative [facility] PH UA (POCT) 5.5 4.5 - 8.0 [facility] Protein Ql (U) >=300 Abnormal Negative mg/dL [facility] SPECIFIC GRAVITY UA (POCT) >=1.030 1.005 - 1.030 [facility] UROBILINOGEN UA (POCT) 1.0 E.U./dL Normal E.U./dL [facility] Urine blood detectionOrdered By: Vee Horton on 12-14-2022 RBC Ql (U) 250 /ul Negative [facility] RBC Ql (U) 50-100 SEEN /hpf 0-5 [facility] Urine clarityOrdered By: Funmi Horton on 12-14-2022 Clarity (U) Cloudy Clear [facility] Urine color determinationOrd ered By: Vee Horton on 12-14-2022 Color (U) Kath Yellow [facility] Urine glucose detectionOrder ed By: Vee Horton on 12-14-2022 Glucose Ql (U) Normal mg/dl Normal [facility] Urine leukocyte esterase det ection by dipstickOrdered By: Vee Horton on 12-14-2022 Leukocyte esterase Test strip Ql (U) 500 /ul Negative [facility] Urine pHOrdered By: Vee Horton on 12-14-2022 pH (U) 6.0 [pH] 5.0 - 8.0 [facility] Urine sediment bacteria coun t by microscopy (number/high power field)Ordered By: Vee Horton on 12-14-2022 Bacteria LM.HPF (Urine sed) [#/Area] 1 /[HPF] None Seen [facility] Urine specific gravity measu rementOrdered By: Vee Horton on 12-14-2022 Specific gravity (U) [Rel density] 1.020 1.002-1.03 0 [facility] Urobilinogen Auto test strip Ql (U)Ordered By: Vee Horton on 12-14-2022 Urobilinogen Ql (U) 4 mg/dl Normal [facility] Basophil percentageOrdered B y: Aparna Gooden on 08-08-2022 Chloride [Moles/Vol] 105 mmol/L 98-107 [facility] Glucose [Mass/Vol] 131 mg/dL 74-106 [facility] Comment on above: Fasting Glucose resu lt greater than or equal to 126 mg/dL suggests DIABETES MELLITUS per A.D.A. criteria. Potassium [Moles/Vol] 3.9 mmol/L 3.5-5.1 [facility] Sodium [Moles/Vol] 140 mmol/L 136-145 [facility] Laboratory - Chemistry and C hemistry - challengeOrdered By: Aparna Gooden on 08-08-2022 CO2 [Moles/Vol] 31.0 mmol/L 21.0-32.0 [facility] Urea nitrogen/Creatinine [Mass ratio] 13.3 mg/mg 10- [facility] No Panel InformationOrdered By: Aparna Gooden on 08-08-2022 Estimated Creatinine Clearance Calc 78.38 ml/min [facility] Estimated GFR (MDRD) Amer 78 mL/min >60 [facility] Comment on above: GFR Calc Estimated GFR (MDRD) Non-Af Amer 65 mL/min >60 [facility] Comment on above: Non- GFR Calc Serum or plasma calcium peterson urement (mass/volume)Ordered By: Aparna Gooden on 08-08-2022 Calcium [Mass/Vol] 9.4 mg/dL 8.5-10.1 [facility] Serum or plasma creatinine m easurement (mass/volume)Ordered By: Aparna Gooden on 08-08-2022 Creatinine [Mass/Vol] 1.20 mg/dL 0.70-1.30 [facility] Comment on above: The validity of the calculated GFR & GFRAA in patients over 70 years has not been determined. Clinical correlation is essential. Serum or plasma urea nitroge n measurement (mass/volume)Ordered By: Aparna Gooden on 08-08-2022 Urea nitrogen [Mass/Vol] 16 mg/dL 7-18 [facility] Thin prep Papanicolaou smear with manual screeningOrdered By: Aparna Gooden on 08-08-2022 Thin prep Papanicolaou smear with manual screening 4 5-15 [facility] Basophil percentageOrdered B y: Dr. Alfred on 06-16-2022 Chloride [Moles/Vol] 109 mmol/L 98-107 [facility] Glucose [Mass/Vol] 103 mg/dL 74-106 [facility] Comment on above: Fasting Glucose resu lt from 100 to 125 mg/dL suggests IMPAIRED HOMEOSTASIS per A.D.A. criteria. Potassium [Moles/Vol] 3.9 mmol/L 3.5-5.1 [facility] Comment on above: Slight Hemolysis, Re sult may be falsely increased. Sodium [Moles/Vol] 142 mmol/L 136-145 [facility] Laboratory - Chemistry and C hemistry - challengeOrdered By: Dr. Alfred on 06-16-2022 CO2 [Moles/Vol] 30.0 mmol/L 21.0-32.0 [facility] Urea nitrogen/Creatinine [Mass ratio] 15.0 mg/mg 10- [facility] No Panel InformationOrdered By: Dr. Alfred on 06-16-2022 Estimated GFR (MDRD) Amer 97 mL/min >60 [facility] Comment on above: GFR Calc Estimated GFR (MDRD) Non-Af Amer 80 mL/min >60 [facility] Comment on above: Non- GFR Calc Serum or plasma calcium peterson urement (mass/volume)Ordered By: Dr. Alfred on 06-16-2022 Calcium [Mass/Vol] 8.9 mg/dL 8.5-10.1 [facility] Serum or plasma creatinine m easurement (mass/volume)Ordered By: Dr. Alfred on 06-16-2022 Creatinine [Mass/Vol] 1.00 mg/dL 0.70-1.30 [facility] Comment on above: The validity of the calculated GFR & GFRAA in patients over 70 years has not been determined. Clinical correlation is essential. Serum or plasma urea nitroge n measurement (mass/volume)Ordered By: Dr. Alfred on 06-16-2022 Urea nitrogen [Mass/Vol] 15 mg/dL 7-18 [facility] Thin prep Papanicolaou smear with manual screeningOrdered By: Dr. Alfred on 06-16-2022 Thin prep Papanicolaou smear with manual screening 3 5-15 [facility] Absolute lymphocyte countOrd ered By: Dr. Shi on 05-07-2022 Lymphocytes Auto (Unsp spec) [#/Vol] 1.31 10*3/uL 0.83-4.51 [facility] Basophil percentageOrdered B y: Dr. Shi on 05-07-2022 Basophils/100 WBC (Bld) 0.3 % 0-1 [facility] Chloride [Moles/Vol] 109 mmol/L 98-107 [facility] Eosinophils/100 WBC (Bld) 1.6 % 0-5 [facility] Glucose [Mass/Vol] 101 mg/dL 74-106 [facility] Comment on above: Fasting Glucose resu lt from 100 to 125 mg/dL suggests IMPAIRED HOMEOSTASIS per A.D.A. criteria. Neutrophils (Bld) [#/Vol] 3.9 10*3/uL 2.0-7.7 [facility] Neutrophils/100 WBC (Bld) 66.6 % 47-70 [facility] Potassium [Moles/Vol] 3.7 mmol/L 3.5-5.1 [facility] Sodium [Moles/Vol] 141 mmol/L 136-145 [facility] WBC (Bld) [#/Vol] 5.8 10*3/uL 4.4-11.0 [facility] Blood erythrocytes count (nu mber/volume)Ordered By: Dr. Shi on 05-07-2022 RBC (Bld) [#/Vol] 5.62 10*6/uL 4.6-6.2 [facility] Blood hemoglobin measurement (mass/volume)Ordered By: Dr. Shi on 05-07-2022 Hemoglobin (Bld) [Mass/Vol] 16.1 g/dL 13.0-16.5 [facility] Blood lymphocytes/100 leukoc ytesOrdered By: Dr. Shi on 05-07-2022 Lymphocytes/100 WBC (Bld) 22.6 % 19-41 [facility] Blood monocytes/100 leukocyt esOrdered By: Dr. Shi on 05-07-2022 Monocytes/100 WBC (Bld) 8.6 % 0-10 [facility] Blood platelet mean volumeOr dered By: Dr. Shi on 05-07-2022 Platelet mean volume (Bld) [Entitic vol] 11.5 fL 6.2-12.0 [facility] Determination of erythrocyte mean corpuscular volume (MCV)Ordered By: Dr. Shi on 05-07-2022 MCV (RBC) [Entitic vol] 85.4 fL 80-94 [facility] Hematocrit Auto (Bld) [Volum e fraction]Ordered By: Dr. Shi on 05-07-2022 Hematocrit (Bld) [Volume fraction] 48.0 % 40-54 [facility] Laboratory - Chemistry and C hemistry - challengeOrdered By: Dr. Shi on 05-07-2022 CO2 [Moles/Vol] 29.0 mmol/L 21.0-32.0 [facility] Urea nitrogen/Creatinine [Mass ratio] 10.6 mg/mg 10-20 [facility] Laboratory - Hematology and Cell countsOrdered By: Dr. Shi on 05-07-2022 Erythrocyte distribution width (RBC) [Entitic vol] 42.3 fL 35.1-43.9 [facility] Erythrocyte distribution width (RBC) [Ratio] 13.8 % 11.6-14.6 [facility] Immature granulocytes/100 WBC (Bld) 0.300 % 0.0-0.9 [facility] Comment on above: IG% - Immature Granu locytes (promyelocytes, myelocytes and metamyelocytes) > 1% indicates that a LEFT SHIFT is Present. MCH (RBC) [Entitic mass] 28.6 pg 27.0-32.0 [facility] Nucleated RBC/100 WBC (Bld) [Ratio] 0 % 0-5 [facility] MCHC Auto (RBC) [Mass/Vol]Or dered By: Dr. Shi on 05-07-2022 MCHC (RBC) [Mass/Vol] 33.5 g/dL 32-36 [facility] No Panel InformationOrdered By: Dr. Shi on 05-07-2022 Troponin I High Sensitivity 13 pg/mL 3.0-78.0 [facility] Comment on above: Please Note: New Crissy t Units and Gender Specific Reference Ranges. For more information see Policy Stat Procedure [facility] High Sensitivity Troponin (TNIH) and attachments. Estimated Creatinine Clearance Calc 90.43 ml/min [facility] [facility] Estimated GFR (MDRD) Amer 92 mL/min >60 [facility] Comment on above: GFR Calc Estimated GFR (MDRD) Non-Af Amer 76 mL/min >60 [facility] Comment on above: Non- GFR Calc Platelets bldOrdered By: Dr. Shi on 05-07-2022 Platelets (Bld) [#/Vol] 156 10*3/uL 150-450 [facility] Serum or plasma calcium peterson urement (mass/volume)Ordered By: Dr. Shi on 05-07-2022 Calcium [Mass/Vol] 8.8 mg/dL 8.5-10.1 [facility] Serum or plasma creatinine m easurement (mass/volume)Ordered By: Dr. Shi on 05-07-2022 Creatinine [Mass/Vol] 1.04 mg/dL 0.70-1.30 [facility] Comment on above: The validity of the calculated GFR & GFRAA in patients over 70 years has not been determined. Clinical correlation is essential. Serum or plasma urea nitroge n measurement (mass/volume)Ordered By: Dr. Shi on 05-07-2022 Urea nitrogen [Mass/Vol] 11 mg/dL 7-18 [facility] Thin prep Papanicolaou smear with manual screeningOrdered By: Dr. Shi on 05-07-2022 Thin prep Papanicolaou smear with manual screening 3 5-15 [facility] Absolute lymphocyte countOrd ered By: Dr. Alfred on 04-29-2022 Lymphocytes Auto (Unsp spec) [#/Vol] 1.25 10*3/uL 0.83-4.51 [facility] Basophil percentageOrdered B y: Dr. Alfred on 04-29-2022 Basophils/100 WBC (Bld) 0.3 % 0-1 [facility] Chloride [Moles/Vol] 107 mmol/L 98-107 [facility] Eosinophils/100 WBC (Bld) 1.2 % 0-5 [facility] Glucose [Mass/Vol] 147 mg/dL 74-106 [facility] Comment on above: Fasting Glucose resu lt greater than or equal to 126 mg/dL suggests DIABETES MELLITUS per A.D.A. criteria. Neutrophils (Bld) [#/Vol] 5.5 10*3/uL 2.0-7.7 [facility] Neutrophils/100 WBC (Bld) 74.4 % 47-70 [facility] Potassium [Moles/Vol] 3.7 mmol/L 3.5-5.1 [facility] Sodium [Moles/Vol] 141 mmol/L 136-145 [facility] WBC (Bld) [#/Vol] 7.4 10*3/uL 4.4-11.0 [facility] Blood erythrocytes count (nu mber/volume)Ordered By: Dr. Alfred on 04-29-2022 RBC (Bld) [#/Vol] 5.68 10*6/uL 4.6-6.2 [facility] Blood hemoglobin measurement (mass/volume)Ordered By: Dr. Alfred on 04-29-2022 Hemoglobin (Bld) [Mass/Vol] 16.8 g/dL 13.0-16.5 [facility] Blood lymphocytes/100 leukoc ytesOrdered By: Dr. Alfred on 04-29-2022 Lymphocytes/100 WBC (Bld) 16.9 % 19-41 [facility] Blood monocytes/100 leukocyt esOrdered By: Dr. Alfred on 04-29-2022 Monocytes/100 WBC (Bld) 6.9 % 0-10 [facility] Blood platelet mean volumeOr dered By: Dr. Alfred on 04-29-2022 Platelet mean volume (Bld) [Entitic vol] 12.1 fL 6.2-12.0 [facility] Determination of erythrocyte mean corpuscular volume (MCV)Ordered By: Dr. Alfred on 04-29-2022 MCV (RBC) [Entitic vol] 86.3 fL 80-94 [facility] Hematocrit Auto (Bld) [Volum e fraction]Ordered By: Dr. Alfred on 04-29-2022 Hematocrit (Bld) [Volume fraction] 49.0 % 40-54 [facility] Laboratory - Chemistry and C hemistry - challengeOrdered By: Dr. Alfred on 04-29-2022 CO2 [Moles/Vol] 28.0 mmol/L 21.0-32.0 [facility] Magnesium [Mass/Vol] 2.3 mg/dL 1.6-2.6 [facility] Urea nitrogen/Creatinine [Mass ratio] 16.2 mg/mg 10-20 [facility] Laboratory - Hematology and Cell countsOrdered By: Dr. Alfred on 04-29-2022 Erythrocyte distribution width (RBC) [Entitic vol] 42.8 fL 35.1-43.9 [facility] Erythrocyte distribution width (RBC) [Ratio] 13.7 % 11.6-14.6 [facility] Immature granulocytes/100 WBC (Bld) 0.300 % 0.0-0.9 [facility] Comment on above: IG% - Immature Granu locytes (promyelocytes, myelocytes and metamyelocytes) > 1% indicates that a LEFT SHIFT is Present. MCH (RBC) [Entitic mass] 29.6 pg 27.0-32.0 [facility] Nucleated RBC/100 WBC (Bld) [Ratio] 0 % 0-5 [facility] [Mass/Vol]Or dered By: Dr. Alfred on 04-29-2022 MCHC (RBC) [Mass/Vol] 34.3 g/dL 32-36 [facility] No Panel InformationOrdered By: Dr. Alfred on 04-29-2022 Estimated GFR (MDRD) Amer 71 mL/min >60 [facility] Comment on above: GFR Calc Estimated GFR (MDRD) Non-Af Amer 59 mL/min >60 [facility] Comment on above: Non- GFR Calc Thyroid Stimulating Hormone (TSH) 1.24 uIU/mL 0.358-3.74 [facility] Platelets bldOrdered By: Dr. Alfred on 04-29-2022 Platelets (Bld) [#/Vol] 163 10*3/uL 150-450 [facility] Serum or plasma calcium peterson urement (mass/volume)Ordered By: Dr. Alfred on 04-29-2022 Calcium [Mass/Vol] 9.5 mg/dL 8.5-10.1 [facility] Serum or plasma creatinine m easurement (mass/volume)Ordered By: Dr. Alfred on 04-29-2022 Creatinine [Mass/Vol] 1.30 mg/dL 0.70-1.30 [facility] Comment on above: The validity of the calculated GFR & GFRAA in patients over 70 years has not been determined. Clinical correlation is essential. Serum or plasma urea nitroge n measurement (mass/volume)Ordered By: Dr. Alfred on 04-29-2022 Urea nitrogen [Mass/Vol] 21 mg/dL 7-18 [facility] Thin prep Papanicolaou smear with manual screeningOrdered By: Dr. Alfred on 04-29-2022 Thin prep Papanicolaou smear with manual screening 6 5-15 [facility] Basophil percentageOrdered B y: Dr. Ramos on 04-25-2022 Testosterone [Mass/Vol] 367.66 ng/dL [facility] Comment on above: CENTRAL 90% REFERENC E RANGES MALE AGE <50 197.44 - 669.58 ng/dL MALE AGE > or = 50 187.72 - 684.19 ng/dL FEMALE AGE <50 8.38 - 35.01 ng/dL FEMALE AGE > or = 50 <7.00 - 35.92 ng/dL Effective as of 01/12/21 Basophil percentageOrdered B y: Dr. Alfred on 04-20-2022 Bilirubin [Mass/Vol] 1.10 mg/dL 0.20-1.00 [facility] Comment on above: For patients on eltr ombopag therapy, use of Dimension Docena TBIL is not recommended. Cholesterol [Mass/Vol] 73 mg/dL <200 [facility] Comment on above: <200 mg/dL Desirable 200-240 mg/dL Borderline >240 mg/dL High Risk Protein [Mass/Vol] 7.3 g/dL 6.4-8.2 [facility] Triglyceride [Mass/Vol] 139 mg/dL <199 [facility] Comment on above: The drugs N-Acetylcy steine and Metamizole may falsely depress this assay.Serum Triglycerides Reference Interval Normal <150 mg/dL Borderline high 150 - 199 mg/dL High 200 - 499 mg/dL Very High > or = 500 mg/dL Direct bilirubinOrdered By: Dr. Alfred on 04-20-2022 Bilirubin.direct [Mass/Vol] 0.31 mg/dL 0.00-0.30 [facility] LIPID PANEL (OUTSIDE)on Non-HDL Cholesterol [facility] VLDL Cholesterol 28 [facility] Laboratory - Chemistry and C hemistry - challengeOrdered By: Dr. Alfred on 04-20-2022 ALP [Catalytic activity/Vol] 77 U/L 45-117 [facility] ALT [Catalytic activity/Vol] 37 U/L 16-61 [facility] Globulin (S) [Mass/Vol] 3.4 g/dL 2.2-4.2 [facility] No Panel InformationOrdered By: Dr. Alfred on 04-20-2022 Prostate Specific Antigen Screen 2.95 ng/mL 0.00-4.00 [facility] Comment on above: This test was perfor med using the TPSA assay method [facility]. Values obtained with differentassay methods cannot be used interchangably.When changing PSA assays in the course of monitoring apatient, additional sequential testing should be carriedout to confirm baseline values. Serum or plasma albumin peterson urement (mass/volume)Ordered By: Dr. Alfred on 04-20-2022 Albumin [Mass/Vol] 3.9 g/dL 3.2-5.0 [facility] Serum or plasma cholesterol in HDL measurement (mass/volume)Ordered By: Dr. Alfred on 04-20-2022 Cholesterol in HDL [Mass/Vol] 27 mg/dL >40 [facility] Comment on above: The drugs N-Acetylcy steine and Metamizole may falsely depress this assay. Reference Range HDL <40 mg/dL Low HDL Cholesterol HDL >or= 60 mg/dL High HDL Cholesterol Serum or plasma cholesterol in VLDL measurement (mass/volume)Ordered By: Dr. Alfred on 04-20-2022 Cholesterol in VLDL [Mass/Vol] 28 mg/dL 5-40 [facility] Serum or plasma low density lipoprotein (LDL) cholesterol measurement (mass/volume)Ordered By: Dr. Alfred on 04-20-2022 Cholesterol in LDL [Mass/Vol] 18 mg/dL 0-130 [facility] Thin prep Papanicolaou smear with manual screeningOrdered By: Dr. Alfred on 04-20-2022 Thin prep Papanicolaou smear with manual screening 21 U/L 15-37 [facility] Absolute lymphocyte counton 02-12-2022 Lymphocytes Auto (Unsp spec) [#/Vol] 1.10 10*3/uL 0.83-4.51 [facility] Work Phone: Basophil percentageon 2021 Basophils/100 WBC (Bld) 0.2 % 0-1 [facility] Work Phone: Bilirubin [Mass/Vol] 1.00 mg/dL 0.20-1.00 [facility] Work Phone: Comment on above: For patients on eltr ombopag therapy, use of Dimension Docena TBIL is not recommended. Chloride [Moles/Vol] 110 mmol/L 98-107 [facility] Work Phone: Eosinophils/100 WBC (Bld) 2.5 % 0-5 [facility] Work Phone: Glucose [Mass/Vol] 94 mg/dL 74-106 [facility] Work Phone: Neutrophils (Bld) [#/Vol] 3.6 10*3/uL 2.0-7.7 [facility] Work Phone: Neutrophils/100 WBC (Bld) 67.4 % 47-70 [facility] Work Phone: Potassium [Moles/Vol] 4.1 mmol/L 3.5-5.1 [facility] Work Phone: Protein [Mass/Vol] 7.3 g/dL 6.4-8.2 [facility] Work Phone: [phone] Sodium [Moles/Vol] 141 mmol/L 136-145 [facility] Work Phone: WBC (Bld) [#/Vol] 5.3 10*3/uL 4.4-11.0 [facility] Work Phone: Blood erythrocytes count (nu mber/volume)on 02-12-2022 RBC (Bld) [#/Vol] 5.64 10*6/uL 4.6-6.2 [facility]: Blood hemoglobin measurement (mass/volume)on 02-12-2022 Hemoglobin (Bld) [Mass/Vol] 15.8 g/dL 13.0-16.5 [facility] Work Phone: Blood lymphocytes/100 leukoc yteson 02-12-2022 Lymphocytes/100 WBC (Bld) 20.8 % 19-41 [facility] Work Phone: Blood monocytes/100 leukocyt eson 02-12-2022 Monocytes/100 WBC (Bld) 8.9 % 0-10 [facility] Work Phone: Blood platelet mean volumeon 02-12-2022 Platelet mean volume (Bld) [Entitic vol] 11.3 fL 6.2-12.0 [facility] Work Phone: Determination of erythrocyte mean corpuscular volume (MCV)on 02-12-2022 MCV (RBC) [Entitic vol] 86.0 fL 80-94 [facility] Work Phone: Erythrocyte sedimentation ra ankush 02-12-2022 ESR (Bld) [Velocity] 6 mm/h 0-20 [facility] Work Phone: Hematocrit Auto (Bld) [Volum e fraction]on 02-12-2022 Hematocrit (Bld) [Volume fraction] 48.5 % 40-54 [facility] Work Phone: Laboratory - Chemistry and C hemistry - challengeon 02-12-2022 ALP [Catalytic activity/Vol] 74 U/L 45-117 [facility] Work Phone: ALT [Catalytic activity/Vol] 34 U/L 16-61 [facility] Work Phone: CO2 [Moles/Vol] 30.0 mmol/L 21.0-32.0 [facility] Work Phone: Globulin (S) [Mass/Vol] 3.3 g/dL 2.2-4.2 [facility] Work Phone: Urea nitrogen/Creatinine [Mass ratio] 16.0 mg/mg 10-20 [facility] Work Phone: Laboratory - Hematology and Cell countson 02-12-2022 Erythrocyte distribution width (RBC) [Entitic vol] 41.6 fL 35.1-43.9 [facility] Work Phone: Erythrocyte distribution width (RBC) [Ratio] 13.5 % 11.6-14.6 [facility] Work Phone: Immature granulocytes/100 WBC (Bld) 0.200 % 0.0-0.9 [facility] Work Phone: Comment on above: IG% - Immature Granu locytes (promyelocytes, myelocytes and metamyelocytes) > 1% indicates that a LEFT SHIFT is Present. MCH (RBC) [Entitic mass] 28.0 pg 27.0-32.0 [facility] Work Phone: Nucleated RBC/100 WBC (Bld) [Ratio] 0 % 0-5 [facility] Work Phone: MCHC Auto (RBC) [Mass/Vol]on 02-12-2022 MCHC (RBC) [Mass/Vol] 32.6 g/dL 32-36 [facility] Work Phone: No Panel Informationon 02-12 Estimated Creatinine Clearance Calc 88.73 ml/min [facility] Work Phone: Estimated GFR (MDRD) Amer 90 mL/min >60 [facility] Work Phone: Comment on above: GFR Calc Estimated GFR (MDRD) Non-Af Amer 75 mL/min >60 [facility] Work Phone: Comment on above: Non- GFR Calc Platelets bldon 02-12-2022 Platelets (Bld) [#/Vol] 142 10*3/uL 150-450 [facility] Work Phone: Serum or plasma albumin peterson urement (mass/volume)on 02-12-2022 Albumin [Mass/Vol] 4.0 g/dL 3.2-5.0 [facility] Work Phone: Serum or plasma albumin/glob ulin mass ratioon 02-12-2022 Albumin/Globulin [Mass ratio] 1.2 {ratio} 0.9-2.4 [facility] Work Phone: Serum or plasma calcium peterson urement (mass/volume)on 02-12-2022 Calcium [Mass/Vol] 9.1 mg/dL 8.5-10.1 [facility] Work Phone: Serum or plasma creatinine m easurement (mass/volume)on 02-12-2022 Creatinine [Mass/Vol] 1.06 mg/dL 0.70-1.30 [facility] Work Phone: Comment on above: The validity of the calculated GFR & GFRAA in patients over 70 years has not been determined. Clinical correlation is essential. Serum or plasma urea nitroge n measurement (mass/volume)on 02-12-2022 Urea nitrogen [Mass/Vol] 17 mg/dL 7-18 [facility] Work Phone: Thin prep Papanicolaou smear with manual screeningon 02-12-2022 Thin prep Papanicolaou smear with manual screening 20 U/L 15-37 [facility] Work Phone: Thin prep Papanicolaou smear with manual screening 1 5-15 [facility] Work Phone: No Panel Informationon 11-29 D-Dimer Quantitative (PE/DVT) 0.40 FEU/ug/m 0.27-0.49 [facility] Work Phone: Comment on above: NORMAL D-Dimer level (<0.50) indicates no DVT or PE. XR Chest PA and Lateralon IMPRESSION: Left basilar atelectasis or mild infiltrates unchanged. Auto Winder: LEONELB Transcribe Date/Time: Nov 29 2021 1:44P Dictated by : LETTY THOMAS MD This examination was interpreted and the report reviewed and electronically signed by: LETTY THOMSA MD on Nov 29 2021 1:46PM EST [...] Left basilar atelectasis or mild infiltrates unchanged. Auto Winder: OSMANI Transcribe Date/Time: Nov 29 2021 1:44P Dictated by : LETTY THOMAS MD This examination was interpreted and the report reviewed and electronically signed by: LETTY THOMAS MD on Nov 29 2021 1:46PM EST [facility] Radiology Study observation (narrative) [facility] XR Chest PA and LateralOrder ed By: [facility] Provider on 11-29-2021 [facility] Basophil percentageon 2021 Testosterone [Mass/Vol] 128.64 ng/dL [facility] Work Phone: Comment on above: CENTRAL 90% REFERENC E RANGES MALE AGE <50 197.44 - 669.58 ng/dL MALE AGE > or = 50 187.72 - 684.19 ng/dL FEMALE AGE <50 8.38 - 35.01 ng/dL FEMALE AGE > or = 50 <7.00 - 35.92 ng/dL Effective as of 01/12/21 Serum or plasma testosterone free measurement (mass/volume)on 10-20-2021 Testosterone Free [Mass/Vol] 2.0 pg/mL 6.6-18.1 [facility] Work Phone: Comment on above: Performed at: [address] [id number] Director: Teresa Olivia MD, Phone: [phone] No Panel Informationon 09-10 IMPRESSION: 1. Right ankle grossly unremarkable. 2. First MTP joint degenerative arthritis again noted. Bones otherwise intact in the right foot. Auto Winder: OSMANI Transcribe Date/Time: Sep 10 2021 6:58P Dictated by : MYKE OWEN MD This examination was interpreted and the report reviewed and electronically signed by: MYKE OWEN MD on Sep 10 2021 7:00PM [facility] DIVISION OF RADIOLOGY Radiology Study observation (narrative) [facility] No Panel InformationOrdered By: [facility] Provider on 09-10-2021 [facility] XR Ankle - right AP and Late ral and obliqueon 09-10-2021 * * *Final Report* * * DATE OF EXAM: Sep 10 2021 4:32PM STX 5297 - XR ANKLE 3V AP/LAT/OBL RT / PROCEDURE REASON: Pain * * * * Physician Interpretation * * * * HISTORY: chronic right ankle pain (accession [id number]), chronic right foot pain (accession [id number]). Pain . TECHNIQUE: XR ANKLE 3V AP/LAT/OBL [...] bone unchanged. DIV[facility]OLOGY [facility] * * *Final Report* * * DATE OF EXAM: Sep 10 2021 4:32PM STX 5297 - XR ANKLE 3V AP/LAT/OBL RT / PROCEDURE REASON: Pain * * * * Physician Interpretation * * * * HISTORY: chronic right ankle pain (accession [id number]), chronic right foot pain (accession [id number]). Pain . TECHNIQUE: XR ANKLE 3V AP/LAT/OBL [...] Bones otherwise intact in the right foot. Auto Winder: [facility] Transcribe Date/Time: Sep 10 2021 6:58P Dictated by : MYKE OWEN MD This examination was interpreted and the report reviewed and electronically signed by: MYKE OWEN MD on Sep 10 2021 7:00PM [facility] XR Foot - right AP and Later al and obliqueon 09-10-2021 * * *Final Report* * * DATE OF EXAM: Sep 10 2021 4:32PM STX 5337 - XR FOOT 3V AP/LAT/OBL RT / PROCEDURE REASON: Pain * * * * Physician Interpretation * * * * HISTORY: chronic right ankle pain (accession [id number]), chronic right foot pain (accession [id number]). Pain . TECHNIQUE: XR ANKLE 3V AP/LAT/OBL [...] navicular bone unchanged. DIVISION OF RADIOLOGY Provider, [facility]10/[facility]21 * * *Final Report* * * DATE OF EXAM: Sep 10 2021 4:32PM STX 5337 - XR FOOT 3V AP/LAT/OBL RT / PROCEDURE REASON: Pain * * * * Physician Interpretation * * * * HISTORY: chronic right ankle pain (accession [id number]), chronic right foot pain (accession [id number]). Pain . TECHNIQUE: XR ANKLE 3V AP/LAT/OBL [...] Bones otherwise intact in the right foot. Auto Winder: PSCB Transcribe Date/Time: Sep 10 2021 6:58P Dictated by : MYKE OWEN MD This examination was interpreted and the report reviewed and electronically signed by: MYKE OWEN MD on Sep 10 2021 7:00PM [facility] DATE OF SERVICE: SUBJECTIVE: Patient is here with a history of gout and right great toe pain beginning several days after he stopped taking his allopurinol. OBJECTIVE: Right great toe is tender. ASSESSMENT: Gout. PLAN: Prednisone 60 mg daily for up to 5 days. Resume other medications. MD ESEQUIEL Godoy/[id number] SSI File#: [id number] END OF DOCUMENT / CHANGE LOG FOLLOWS Last Edited By Elec. Signed By Abraham Rosa MD #NAUTH Abraham Rosa MD #NAUTH on 09/14/2020 09:32 ET on 09/14/2020 09:32 ET Revision Number - 2 * Kanwal [facility] [place] PATIENT NAME: LAZARO GARZON [address] [facility] MEDICAL REC #: [id number] [place], [place] [facility]IAN Verified/Reviewed by 09/14/20 0932 KELVIN * [facility] PAT[facility] NAME: LAZARO GARZON [address] [facility] MEDICAL REC #: [id number] [place], [place] [facility] PHYSIC[facility] XR Foot - right AP and Later al and obliqueon 04-29-2020 IMPRESSION: No acute findings. Auto Winder: OSMANI Transcribe Date/Time: Apr 29 2020 9:20A Dictated by : NAIDA BARAJAS MD This examination was interpreted and the report reviewed and electronically signed by: NAIDA BARAJAS MD on Apr 29 2020 9:22AM [facility] DIVISION OF RADIOLOGY * * *Final Report* [...] other significant abnormality. DIVISION OF RADIOLOGY Provider, [facility] - 04/29/2020 * * *Final Report* * [...] significant abnormality. IMPRESSION IMPRESSION: No acute findings. Auto Winder: PSCB Transcribe Date/Time: Apr 29 2020 9:20A Dictated by : NAIDA BARAJAS MD This examination was interpreted and the report reviewed and electronically signed by: NAIDA BARAJAS MD on Apr 29 2020 9:22AM [facility] XR Foot - right AP and Later al and obliqueOrdered By: Cc Provider on 04-29-2020 [facility] XR Foot - right AP and Later al and obliqueon 04-28-2020 Radiology Study observation (narrative) [facility] .GFRon 08-28-2019 GFR 75 ml/min/1.73sqm Normal [facility] ([place]) Comment on above: Result Comment: GFR Population [...] Performed By: #### C RE, GFR #### [place] [address] GFR Non- 62 ml/min/1.73sqm Normal [facility] ([place]) Comment on above: Result Comment: GFR Population [...] Performed By: #### C RE, GFR #### [address] [address] CREon 08-28-2019 Creatinine [Mass/Vol] 1.19 mg/dL Normal 0.70-1.30 [facility] ([place]) Comment on above: Performed By: #### C RE, GFR #### [place] [address] CT ENTEROGRAPHY ABD/PELVIS W /CONTRASTon 08-28-2019 CT [...] Date: 08/28/2019 10:39:54 AM Ordering Provider:Fabian Braun [facility] ([place]) EMERGENCY REPORTon 8 EMERGENCY REPORT [facility] EM ERGENCY ROOM REPORT NAME ACCOUNT SEX AGE ADMIT DISCHARGE PT MED. RECORD# NUMBER DATE DATE TYPE DURAN [id number] Sinceer 62 10/30/17 10/30/17 3 LAZARO [id number] ROOM: ER DATE OF : 1955 DICTATING [...] years. 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 PAST MEDICAL HISTORY: TIA, hypertension. PAST SURGICAL [...] did try to get him transferred to [facility]; however, they do no have any beds. We are going to call his toolroom machinist, Dr. Alfred. Dictated By: Jagjit Souza DO 10/30/17 10:48 JOB #: [id number] Transcribed By: am 10/30/17 17:37 Electronically signed by: LOYD Souza D.O. 11/05/17 09:59 Page 2 of 2 LAZARO GARZON Emergency Room Report Normal [facility] APTTon 10-30-2017 aPTT 29.2 s Normal 21.6 - 35.4 [facility] Comment on above: Performed By: #### 2 [id number] ####[facility],[address] [place] [address] CBCon 10-30-2017 Basophils Auto #/vol (Bld) 0.00 x10EE3/UL Normal 0.00 - 0.10 [facility] Comment on above: Performed By: #### 2 [id number] ####[address],[place] [address] Basophils/100 WBC Auto (Bld) 0.5 % Normal 0.0 - 2.0 [facility] Comment on above: Performed By: #### 2 13770 ####[facility],[address] [place] [id number] Blood morphology N/A Normal [facility] Comment on above: Result Comment: {CD] Performed By: #### 2 16898 ####[facility],[address] [place] [address] CBC Normal [facility] Comment on above: Result Comment: CBC- COMPLETE BLOOD COUNT Performed By: #### 2 [id number] ####[facility],[address] [place], [place] [id number] Eosinophils 0.10 x10EE3/UL Normal 0.00 - 0.50 [facility] Comment on above: Performed By: #### 2 32233 ####[facility],[address] [place], [place] [id number] Eosinophils/100 leukocytes 1.2 % Normal 0.0 - 7.0 [facility] Comment on above: Performed By: #### 2 98367 ####[facility],[address] [place], [place] [id number] Erythrocyte distribution width Auto Ratio (RBC) 14.5 % Normal 12.0 - 15.6 [facility] Comment on above: Performed By: #### 2 [id number] ####[facility],[address] [place], [place] [id number] Erythrocytes (RBC) 6.19 x 10EE6/UL High 4.50 - 6.00 [facility] Comment on above: Performed By: #### 2 74325 ####[facility],[address] [place], [place] [id number] Hematocrit (HCT) 50.5 % Normal 40.0 - 52.0 [facility] Comment on above: Performed By: #### 2 09891 ####[facility] [facility] [place] [address] Hemoglobin mass conc (Bld) 17.7 g/dL High 13.0 - 17.5 [facility] Comment on above: Performed By: #### 2 78757 ####[facility],[address] [place] [address] Lymphocytes 1.20 x10EE3/UL Normal 0.80 - 2.80 [facility] Comment on above: Performed By: #### 2 49046 ####[facility],[address] [place] [address] Lymphocytes/100 leukocytes 20.2 % Normal 20.0 - 45.0 [facility] Comment on above: Performed By: #### 2 20736 ####[facility],[address] [place] [address] MANUAL DIFF N/A Normal [facility] Comment on above: Performed By: #### 2 70193 ####[facility],[address] [place] [address] MCH 29 pg Normal 27 - 33 [facility] Comment on above: Performed By: #### 2 41197 ####[facility],[address] [place], [place] [id number] MCHC mass conc (RBC) 35 X10 3 Normal 32 - 36 [facility] Comment on above: Performed By: #### 2 79708 ####[facility],[address] [place], [place] [id number] MCV 82 fL Normal 81 - 98 [facility] Comment on above: Performed By: #### 2 27707 ####[facility],[address] [place] [address] Monocytes 0.50 x10EE3/UL Normal 0.20 - 1.00 [facility] Comment on above: Performed By: #### 2 78523 ####[facility],[address] [place] [address] MONOS % 8.3 % Normal 0.0 - 10.0 [facility] Comment on above: Performed By: #### 2 13611 ####[facility],[address] [place] [address] Neutrophils 4.30 x10EE3/UL Normal 1.50 - 7.10 [facility] Comment on above: Performed By: #### 2 07201 ####[facility],[address] [place] [address] 60[address] Neutrophils/100 WBC Auto (Bld) 69.8 % Normal 46.0 - 76.0 [facility] Comment on above: Performed By: #### 2 01558 ####[facility],[address] [place] [address] 38588 Platelet mean volume (PMV) 9.4 fL Normal 6.4 - 10.5 [facility] Comment on above: Result Comment: AUTO MATED DIFFERENTIAL Performed By: #### 2 62544 ####[facility],[address] [place] [address]41 Platelets 137 x10EE3/UL Low 150 - 450 [facility] Comment on above: Performed By: #### 2 41542 ####[facility],[address] [place] [address]3889 WBC (Leukocytes) 6.2 x 10EE3/UL Normal 4.5 - 10.8 [facility] Comment on above: Performed By: #### 2 03861 ####[facility],[address] [place], [place] [id number] CHEST 1 VIEWon 10-30-2017 CHEST 1 VIEW [place] [address] Patient: LAZARO GARZON Phone#: : 1955 Age: 62 Gender: M Pt. Type: ER Account: [id number] Location: [facility] Ordering: JAGJIT SOUZA Exam Date: 10/30/2017/9:06 Family Phys: Charge Code: [id number] Physician: [place] Order #: [id number] DLP Dose#: PROCEDURE: X-RAY CHEST 1 VIEW [...] Samayoa MD on 10/30/2017 at 9:28 Normal [facility] CMP with eGFRon 10-30-2017 Age 62 years Normal [facility] Comment on above: Performed By: #### 2 85428 ####[place] [address] Albumin 4.4 g/dL Normal 3.4 - 4.8 [facility] Comment on above: Performed By: #### 2 32384 ####[address] [address] Albumin/Globulin Ratio 1.9 {ratio} High 0.9 - 1.6 [facility] Comment on above: Performed By: #### 2 95187 ####[address] [address] ALK PHOS 55 U/L Normal 38 - 126 [facility] Comment on above: Performed By: #### 2 83079 ####[address] [address] ALT/SGPT 19 U/L Normal 10 - 40 [facility] Comment on above: Performed By: #### 2 02323 ####[address] [address] Anion gap 12 mmol/L Normal 10 - 20 [facility] Comment on above: Performed By: #### 2 78887 ####[facility],[address] [place] [address] AST/SGOT 16 U/L Normal 13 - 39 [facility] Comment on above: Performed By: #### 2 09838 ####[facility],[address] [place] [address] B/C RATIO 15 ratio Normal 0 - 30 [facility] Comment on above: Performed By: #### 2 88218 ####[facility],[address] [place] [address] Bilirubin (total) 1.0 mg/dL Normal 0.0 - 1.5 [facility] Comment on above: Performed By: #### 2 13819 ####[facility],[address] [place] [address] Calcium 9.5 mg/dL Normal 8.6 - 10.2 [facility] Comment on above: Performed By: #### 2 46491 ####[facility],[address] [place] [address]10 Chloride 103 mmol/L Normal 98 - 107 [facility] Comment on above: Performed By: #### 2 26961 ####[facility],[address] [place] [address] CO2 26.2 mmol/L Normal 21.0 - 31.0 [facility] Comment on above: Performed By: #### 2 52535 ####[facility],[address] [place] [address] Creatinine 1.1 mg/dL Normal 0.7 - 1.3 [facility] Comment on above: Performed By: #### 2 00385 ####[facility],[address] [place] [address] eGFR (non-black) Normal [facility] Comment on above: Result Comment: COMP REHENSIVE METABOLIC PANEL Performed By: #### 2 60322 ####[facility],[address] [place] [address] eGFR (non-black) mL/min/{1.73_m2} Normal 60 - 999 [facility] Comment on above: Performed By: #### 2 94455 ####[facility],[address] [place], [place] [id number] Result Comment: ACCO RDING TO THE NATIONAL KIDNEY DISEASE EDUCATION PROGRAM(NKDE), A NORMAL eGFRIS A VALUE GREATER THAN OR EQUAL TO 60 ML/MIN/1.73 SQ METERS.CHRONIC KIDNEY DISEASE: <60mL/MIN/1.73 SQ METERSKIDNEY FAILURE: <15mL/MIN/1.73 SQ METERSTHIS TEST SHOULD ONLY BE USED FOR PATIENTS 18 YEARS OF AGE AND OLDER. Globulin 2.3 g/dL Normal 1.5 - 3.8 [facility] Comment on above: Performed By: #### 2 01038 ####[facility],[address] [place] [address] Glucose mass conc 109 mg/dL High 74 - 106 [facility] Comment on above: Performed By: #### 2 04895 ####[place] [id number] Potassium molar conc 3.5 mmol/L Normal 3.5 - 5.1 [facility] Comment on above: Performed By: #### 2 53774 ####[place] [id number] Protein 6.7 g/dL Normal 6.4 - 8.3 [facility] Comment on above: Performed By: #### 2 86625 ####[place] [id number] Sodium 138 mmol/L Normal 136 - 145 [facility] Comment on above: Performed By: #### 2 15086 ####[place] [id number] Urea nitrogen 16 mg/dL Normal 6 - 20 [facility] Comment on above: Performed By: #### 2 61770 ####[facility],[address] [place] [address] D-DIMER, QUANTITATIVEon 10-17 D-DIMER QUANT 187 ng/ml Normal 0 - 230 [facility] Comment on above: Performed By: #### 2 01933 ####[facility],[address] [place] [address]681 D-DIMER, QUANTITATIVE Normal [facility] Comment on above: Result Comment: LIN T D-DIMER Performed By: #### 2 61916 ####[facility],[address] [place], [place] [id number] MAGNESIUMon 10-30-2017 Magnesium 2.0 mg/dL Normal 1.6 - 2.6 [facility] Comment on above: Performed By: #### 2 18870 ####[facility],[address] [place] [address] PROTHROMBIN TIME AND INRon 0 10-30-2017 INR Coag RelTime (Bld) Normal [facility] Comment on above: Result Comment: PROT HROMBIN TIME AND INR Performed By: #### 2 76208 ####[facility],[address] [place] [address] 15592 INR Coag RelTime (PPP) 1.1 {INR} Normal 0.8 - 1.2 [facility] Comment on above: Result Comment: T [...] MECHANICAL HEART VALVES Performed By: #### 2 49243 ####[facility],[address] [place], [place] [address] PT-COUMADIN 12.1 sec Normal [facility] Comment on above: Performed By: #### 2 36255 ####[place] [address] TROPONINon 10-30-2017 Troponin I.cardiac mass conc ng/mL Normal 0.00 - 0.05 [facility] Comment on above: Result Comment: Elev [...] as heterophile antibodies). Performed By: #### 2 44007 ####[place] [address] Troponin I.cardiac mass conc 0.01 ng/mL Normal 0.00 - 0.05 [facility] Comment on above: Result Comment: Elev [...] as heterophile antibodies). Performed By: #### 2 64836 ####[facility],[address] [place], [place] [id number] Lab Report: Lipid Profileon 07-18-2017 Cholesterol 88 mg/dL Invalid Interpretation Code 200 [employer] Work Phone: [phone] HDL Cholesterol 30 mg/dL Low [employer] Work Phone: [phone] LDL Cholesterol 30 mg/dL Invalid Interpretation Code 0-130 [employer] Work Phone: [phone] Triglyceride 138 mg/dL Invalid Interpretation Code [employer] Work Phone: [phone] low density lipoproteins 28 mg/dL Invalid Interpretation Code 5-40 [facility] Phone: [phone] Lab Report: Liver Profileon 07-18-2017 Alanine aminotransferase (ALT) 32 U/L Invalid Interpretation Code 16-61 [facility] Phone: [phone] Albumin 3.4 g/dL Invalid Interpretation Code 3.2-5.0 [employer] Work Phone: [phone] Alkaline phosphatase (ALP) 59 U/L Invalid Interpretation Code 45-117 [facility] Phone: [phone] Aspartate aminotransferase (AST) 27 U/L Invalid Interpretation Code 15-37 [facility] Phone: [phone] Bilirubin (direct) 0.16 mg/dL Invalid Interpretation Code 0.00-0.30 [facility] Phone: [phone] Bilirubin (total) 0.70 mg/dL Invalid Interpretation Code 0.20-1.00 [facility] Phone: [phone] Globulin 3.3 g/dL Invalid Interpretation Code 2.2-4.2 [facility] Phone: [phone] Protein 6.7 g/dL Invalid Interpretation Code 6.4-8.2 [facility] Phone: [phone] Office Visiton 12-14-2016 Documentation of current medications (procedure) Done Invalid Interpretation Code [facility] Phone: [phone] Fall risk assessment No Invalid Interpretation Code [facility] Phone: [phone] Protein mass conc Done [facility] Phone: [phone] Replaced Document: Alexa Zaragoza CG Observationson 08-17-2016 EKG QRS axis -44 deg [facility] Phone: [phone] electrocardiogram interpretation Sinus Rhythm -Left axis -anterior fascicular block. ABNORMAL Invalid Interpretation Code [facility] Phone: [phone] GE use only - for [employer] import when terms are not otherwise specified 395 ms Invalid Interpretation Code [facility] Phone: [phone] Interpretation Sinus Rhythm -Left a xis -anterior fascicular block. ABNORMAL [employer] Work Phone: [phone] P Robinson 53 deg [facility] Work Phone: [phone] P wave axis, electrocardiogram 53 deg Invalid Interpretation Code [facility] Work Phone: [phone] [place] Interval 218 ms [facility] Work Phone: [phone] [place] interval, electrocardiogram 218 ms Invalid Interpretation Code [facility] Work Phone: [phone] Pulse (Heart Rate) 80 /min Invalid Interpretation Code [facility] Work Phone: [phone] QRS axis, electrocardiogram -44 deg Invalid Interpretation Code [facility] Work Phone: [phone] QRS Duration 93 ms [facility] Work Phone: [phone] QRS duration, electrocardiogram 93 ms Invalid Interpretation Code [facility] Work Phone: [phone] QT Interval new path ms [facility] Work Phone: [phone] QT interval, electrocardiogram new path ms Invalid Interpretation Code [facility] Work Phone: [phone] QTc Chou 395 ms [facility] Work Phone: [phone] T Robinson 30 deg [facility] Work Phone: [phone] T wave axis, electrocardiogram 30 deg Invalid Interpretation Code [facility] Work Phone: [phone] Clinical Lists Update: 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 Left ventricular Ejection fraction 65 % Invalid Interpretation Code [facility] Work Phone: [phone] Office Visiton 01-04-2016 Dietary management education, guidance, and counseling (procedure) yes Invalid Interpretation Code [facility] Work Phone: [phone] Tobacco smoking status NHIS Tobacco smoking status NHIS Invalid Interpretation Code [facility] Work Phone: [phone] Tobacco smoking status NHIS Former smoker [employer] Work Phone: [phone] Lab Report: Lipid Profileon 04-18-2015 Cholesterol in HDL mass conc 31 mg/dL Low [employer] Work Phone: [phone] Cholesterol in LDL mass conc 27 mg/dL 0-130 [facility] Work Phone: [phone] Cholesterol mass conc 98 mg/dL [address] [facility] Work Phone: [phone] Lipoprotein.pre-beta mass conc 40 mg/dL 5-40 [facility] Work Phone: [phone] Triglyceride mass conc 200 mg/dL High [facility] Work Phone: [phone] Lab Report: Liver Profileon 04-18-2015 Albumin mass conc 4.1 g/dL 3.4-5.0 [facility] Work Phone: [phone] ALP enzyme act/vol (Bld) 85 U/L 50-136 [facility] Work Phone: [phone] ALT enzyme act/vol 39 U/L 12-78 [facility] Work Phone: [phone] AST enzyme act/vol 23 U/L 15-37 [facility] Work Phone: [phone] Bilirubin mass conc 1.20 mg/dL High 0.20-1.00 [facility] Work Phone: [phone] Bilirubin.direct mass conc 0.25 mg/dL 0.00-0.30 [facility] Work Phone: [phone] Globulin mass conc (S) 3.0 g/dL 2.3-3.5 [facility] Work Phone: [phone] Protein mass conc 7.1 g/dL 6.4-8.2 [facility] Work Phone: [phone]) Lab Report: PSA,Total- Diagn osticon 04-18-2015 prostate specific antigen, total 2.47 ng/mL Invalid Interpretation Code 0.0-4.0 [facility] Work Phone: [phone] Protein mass conc 2.47 ng/mL 0.0-4.0 [facility] Work Phone: [phone]) Lab Report: T4 Total, Thyrox inon 04-18-2015 T4 mass conc 9.6 ug/dL Invalid Interpretation Code 4.5-12.1 [facility] Work Phone: [phone]) Lab Report: Thyroid Stim Hor madeleine (TSH)on 04-18-2015 Thyrotropin Qn 1.26 u[iU]/mL Invalid Interpretation Code 0.358-3.74 [facility] Work Phone: [phone] Lab Report: BNP,B-Type NATRI URETIC PEPTIDEon 01-08-2015 Natriuretic peptide B mass conc (Bld) 17.5 pg/mL Invalid Interpretation Code 0-100 [facility] Work Phone: [phone] Office Visiton 09-22-2014 cardiac risk group C Invalid Interpretation Code [facility] Work Phone: [phone] General cardiovascular disease 10Y risk [#] [place].D'Agostdanny N/A Invalid Interpretation Code [facility] Work Phone: [phone] Clinical Lists Update: 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 admissions 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 03-29-2014 Cholesterol in LDL/Cholesterol in HDL mass ratio 1.41 Invalid Interpretation Code [facility] Work Phone: [phone] Cholesterol.total/Cho lesterol in HDL mass ratio 3.33 {ratio} Invalid Interpretation Code [facility] Work Phone: [phone] Lab Report: BMPon 12-04-2013 Anion gap 6 mmol/L Normal 5-15 [facility] Work Phone: [phone] Anion gap molar conc 6 mmol/L Normal 5-[address] [address] [facility] Work Phone: [phone] Calcium mass conc 9.1 mg/dL Normal 8.5-10.1 [facility] Work Phone: [phone] Chloride molar conc 105 mmol/L Normal 98-107 [facility] Work Phone: [phone] CO2 29.0 mmol/L Normal 21.0-32.0 [facility] Work Phone: [phone] CO2 ppres (BldV) 29.0 mmol/L Normal 21.0-32.0 [facility] Work Phone: [phone] Creatinine mass conc 1.2 mg/dL Normal 0.8-1.[address] [facility] [address] [facility] Work Phone: [phone] eGFR (non-black) 81 mL/min/{1.73_m2} Normal >60 [facility] Work Phone: [phone] GFR/1.73 sq M predicted among non-blacks MDRD vol rate/area (S/P/Bld) 67 mL/min/{1.73_m2} Normal >60 [employer] Work Phone: [phone] GFRAA 81 mL/min Normal >60 [facility] Work Phone: [phone] Glucose 89 mg/dL Normal 70-110 [employer] [facility] Work Phone: [phone] Glucose mass conc 89 mg/dL Normal 70-110 [facility] Work Phone: [phone] Potassium molar conc 4.2 mmol/L Normal 3.5-5.1 [facility] Work Phone: [phone] Sodium molar conc 140 mmol/L Normal 136-145 [facility] Work Phone: [phone] Urea nitrogen mass conc 17 mg/dL Normal 7-18 [facility] Work Phone: [phone] Urea nitrogen/Creatinine mass ratio 14.2 RATIO Normal 10-20 [facility] Work Phone: [phone] Lab Report: CBCon 12-04-2013 Erythrocytes (RBC) 5.61 10*6/uL Normal 4.6-6.2 [facility] Work Phone: [phone] Hematocrit (HCT) 47.4 % Normal 40-54 [facility] Work Phone: [phone] Hematocrit Volume Fraction (Bld) 47.4 % Normal 40-54 [facility] Work Phone: [phone] Hemoglobin mass conc (Bld) 16.7 g/dL High 13.0-16.5 [facility] [employer] [facility] Work Phone: [phone] MCH 29.8 pg Normal 27.0-32.0 [facility] Work Phone: [phone] MCH Entitic mass (RBC) 29.8 pg Normal 27.0-32.0 [facility] Work Phone: [phone] MCHC 35.2 G/GL Normal 32-36 [employer] [facility] Work Phone: [phone] MCHC mass conc (RBC) 35.2 G/GL Normal 32-36 [facility] Work Phone: [phone] MCV 84.5 fL Normal 80-94 [employer] Work Phone: [phone] MCV Entitic volume (RBC) 84.5 fL Normal 80-94 [facility] Work Phone: [phone] Platelet mean volume Entitic volume (Bld) 11.5 fL Normal 6.2-12.0 [facility] Work Phone: [phone] Platelets 123 10*3/mm3 Low 150-450 [facility] Work Phone: [phone] Platelets #/vol (Bld) 123 10*3/mm3 Low 150-450 [facility] Work Phone: [phone] PMV by Gil 11.5 fL Normal 6.2-12.0 [facility] Work Phone: [phone] RBC #/vol (Bld) 5.61 10*6/uL Normal 4.6-6.2 [employer] Work Phone: [phone] WBC #/vol (Bld) 6.4 10*3/uL Normal 4.4-11.0 [facility] Work Phone: [phone] WBC (Leukocytes) 6.4 10*3/uL Normal 4.4-11.0 [facility] [employer] [facility] Work Phone: [phone] Lab Report: PTon 12-04-2013 INR Coag RelTime (PPP) 1.6 {INR} Normal [facility] [employer] [facility] Work Phone: [phone] INR in blood by coagulation 1.6 {INR} Normal [employer] [facility] Work Phone: [phone] prothrombin time, actual/normal, ratio 18.2 SECONDS High 11.9-14.4 [facility] Work Phone: [phone] PTP 18.2 SECONDS High 11.9-14.4 [facility] Work Phone: [phone] Replaced Document: Alexa ROCA Observationson 10-30-2013 Pulse (Heart Rate) 396 ms Invalid Interpretation Code [facility] Work Phone: [phone] Lab Report: Ordered by Dr. Nik alfaro 09-20-2012 Erythrocyte distribution width Ratio (RBC) 13.4 % [employer] [facility] Work Phone: [phone] MCHC 35.5 % Invalid Interpretation Code [facility] Work Phone: [phone] MCHC mass conc (RBC) 35.5 % [facility] Work Phone: [phone] RDW-CA 13.4 % Invalid Interpretation Code [facility] Work Phone: [phone] Lab Report: PTTon 09-03-2012 aPTT Coag time (Bld) 28.8 s Normal 24.1-36.[address] [facility] Work Phone: [phone] Office Visiton 07-18-2012 Alcoholism counseling (procedure) no Invalid Interpretation Code [facility] Work Phone: [phone] Protein mass conc no [facility] Work Phone: [phone] Vital Signs Date Time Vital Sign Value Performing Clinician Darren campoverde 12-31-2024 08:48-0400 Body height 193 cm Yesica Bacon PARK KEEPER.LEASING ASSISTANT Work Phone: [facility] 12-31-2024 08:48-0400 Body mass index (BMI) [Ratio] 39.58 kg/m2 Yesica Mendiolair PARK KEEPER.LEASING ASSISTANT Work Phone: [facility] 12-31-2024 08:48-0400 Body temperature 97.59 [degF] Yesica Meliton PARK KEEPER.LEASING ASSISTANT Work Phone: [facility] 12-31-2024 08:48-0400 Body weight 147.42 kg Yesica Mendiolair PARK KEEPER.LEASING ASSISTANT Work Phone: [facility] 12-31-2024 08:48-0400 Diastolic blood pressure 83 mm[Hg] Yesica Meliton PARK KEEPER.LEASING ASSISTANT Work Phone: [facility] 12-31-2024 08:48-0400 Heart rate 79 /min Yesica Mendiolair PARK KEEPER.LEASING ASSISTANT Work Phone: [facility] 12-31-2024 08:48-0400 SaO2% (BldA) [Mass fraction] 99 % Yesica Mendiolair PARK KEEPER.LEASING ASSISTANT Work Phone: [facility] 12-31-2024 08:48-0400 Systolic blood pressure 141 mm[Hg] Yesica Bacon [place] Work Phone: [facility] 12-24-2024 13:56-0400 Body mass index (BMI) [Ratio] 38.54 kg/m2 Jagjit Cheema MD Work Phone: [facility] 12-24-2024 13:56-0400 Body weight 147.42 kg Jagjit Cheema MD Work Phone: [facility] 12-24-2024 13:56-0400 Diastolic blood pressure 72 mm[Hg] Jagjit Cheema MD Work Phone: [facility] 12-24-2024 13:56-0400 Heart rate 86 /min Jagjit Cheema MD Work Phone: [facility] 12-24-2024 13:56-0400 SaO2% (BldA) [Mass fraction] 97 % Jagjit Cheema MD Work Phone: [facility] 12-24-2024 13:56-0400 Systolic blood pressure 140 mm[Hg] Jagjit Cheema MD Work Phone: [facility] 11-28-2024 10:11-0400 Body height 195.[address] Jagjit Cheema MD Work Phone: [facility] 11-28-2024 10:11-0400 Body mass index (BMI) [Ratio] 39.4 kg/m2 Dr. Jagjit Cheema MD Work Phone: [facility] 11-28-2024 10:11-0400 Body weight 151.[address] Jagjit Cheema MD Work Phone: [facility] 11-28-2024 10:11-0400 Diastolic blood pressure 91 mm[Hg] Dr. Jagjit Cheema MD Work Phone: [facility] 11-28-2024 10:11-0400 Heart rate 69 /min Dr. Jagjit Cheema MD Work Phone: [facility] 11-28-2024 10:11-0400 Respiratory rate 18 /min Dr. Jagjit Cheema MD Work Phone: [phone])174-650831 [place] [address] 11-28-2024 10:11-0400 Systolic blood pressure 167 mm[Hg] Dr. Jagjit Cheema MD Work Phone: 6(766)263-085531 [place] [address] 11-20-2024 14:20-0400 Body temperature 97.9 [degF] Dr. Jagjit Cheema MD Work Phone: 3(547)934-375631 [place] [address] 11-20-2024 14:20-0400 Diastolic blood pressure 88 mm[Hg] Dr. Jagjit Cheema MD Work Phone: 1(092)413-061231 [place] [address] 11-20-2024 14:20-0400 Heart rate 75 /min Dr. Jagjit Cheema MD Work Phone: 6(876)359-772231 [place] [address] 11-20-2024 14:20-0400 Respiratory rate 16 /min Dr. Jagjit Cheema MD Work Phone: 8(047)883-825031 [place] [address] 11-20-2024 14:20-0400 SaO2% (BldA) [Mass fraction] 97 % Dr. Jagjit Cheema MD Work Phone: 7(282)480-024431 [place] [address] 11-20-2024 14:20-0400 Systolic blood pressure 146 mm[Hg] Dr. Jagjit Cheema MD Work Phone: 4(424)641-446931 [place] [address] 11-20-2024 10:26-0400 Body height 195.[address] Jagjit Cheema MD Work Phone: 5(238)470-293231 [place] [address] 11-20-2024 10:26-0400 Body mass index (BMI) [Ratio] 40.1 kg/m2 Dr. Jagjit Cheema MD Work Phone: 9(565)749-893631 [place] [address] 11-20-2024 10:26-0400 Body weight 153.[address] Jagjit Cheema MD Work Phone: 7(774)151-578731 [place] [address] 11-18-2024 11:23-0400 Body temperature 99.19 [degF] Susan Kerr APRN.LEASING ASSISTANT Work Phone: 9(616)119-957864 [place] [address] 11-18-2024 11:23-0400 Diastolic blood pressure 80 mm[Hg] Susan Kerr APRN.LEASING ASSISTANT Work Phone: 5(129)929-503564 [place] [address] 11-18-2024 11:23-0400 Heart rate 72 /min Susan Haagen PARK KEEPER.LEASING ASSISTANT Work Phone: [facility] 11-18-2024 11:23-0400 Respiratory rate 16 /min Susan Kerr PARK KEEPER.LEASING ASSISTANT Work Phone: [facility] 11-18-2024 11:23-0400 SaO2% (BldA) [Mass fraction] 95 % Susan Haagen PARK KEEPER.LEASING ASSISTANT Work Phone: [facility] 11-18-2024 11:23-0400 Systolic blood pressure 158 mm[Hg] Susan Haagen PARK KEEPER.LEASING ASSISTANT Work Phone: [facility] 10-28-2024 13:21-0400 Body temperature 97 [degF] Dr. Jagjit Cheema MD Work Phone: 7(957)554-859553 [place] [address] 10-28-2024 13:21-0400 Diastolic blood pressure 83 mm[Hg] Dr. Jagjit Cheema MD Work Phone: 6(390)[phone] [place] [address] 10-28-2024 13:21-0400 Heart rate 66 /min Dr. Jagjit Cheema MD Work Phone: 9(398)729-416053 [place] [address] 10-28-2024 13:21-0400 Respiratory rate 24 /min Dr. Jagjit Cheema MD Work Phone: [phone])[phone] [place] [address] 10-28-2024 13:21-0400 SaO2% (BldA) [Mass fraction] 97 % Dr. Jagjit Cheema MD Work Phone: 9(451)617-862453 [place] [address] 10-28-2024 13:21-0400 Systolic blood pressure 156 mm[Hg] Dr. Jagjit Cheema MD Work Phone: 3(798)[phone] [place] [address] 10-28-2024 09:36-0400 Body height 195.[address] Jagjit Cheema MD Work Phone: 7(911)[phone] [place] [address] 10-28-2024 09:36-0400 Body mass index (BMI) [Ratio] 40.4 kg/m2 Dr. Jagjit Cheema MD Work Phone: 6(097)[phone] [place] [address] 10-28-2024 09:36-0400 Body weight 154.[address] Jagjit Cheema MD Work Phone: [facility] 10-21-2024 09:24-0400 Diastolic blood pressure 70 mm[Hg] Jagjit Cheema MD Work Phone: [facility] 10-21-2024 09:24-0400 Systolic blood pressure 138 mm[Hg] Jagjit Cheema MD Work Phone: [facility] 10-21-2024 08:41-0400 Body height 195.6 cm Jagjit Cheema MD Work Phone: [facility] 10-21-2024 08:41-0400 Body mass index (BMI) [Ratio] 39.73 kg/m2 Jagjit Cheema MD Work Phone: [facility] 10-21-2024 08:41-0400 Body weight 151.96 kg Jagjit Cheema MD Work Phone: [facility] 10-21-2024 08:41-0400 Heart rate 78 /min Jagjit Cheema MD Work Phone: [facility] 10-21-2024 08:41-0400 SaO2% (BldA) [Mass fraction] 98 % Jagjit Cheema MD Work Phone: [facility] 09-23-2024 09:40-0400 Body mass index (BMI) [Ratio] 39.73 kg/m2 Jagjit Cheema MD Work Phone: [facility] 09-23-2024 09:40-0400 Body weight 151.96 kg Jagjit Cheema MD Work Phone: [facility] 09-23-2024 09:40-0400 Diastolic blood pressure 78 mm[Hg] Jagjit Cheema MD Work Phone: [facility] 09-23-2024 09:40-0400 Heart rate 82 /min Jagjit Cheema MD Work Phone: [facility] 09-23-2024 09:40-0400 SaO2% (BldA) [Mass fraction] 97 % Jagjit Cheema MD Work Phone: [facility] 09-23-2024 09:40-0400 Systolic blood pressure 170 mm[Hg] Jagjit Cheema MD Work Phone: [facility] 09-11-2024 08:25-0400 Body height 195.6 cm Jagjit Cheema MD Work Phone: [facility] 09-11-2024 08:25-0400 Body mass index (BMI) [Ratio] 39.73 kg/m2 Jagjit Cheema MD Work Phone: [facility] 09-11-2024 08:25-0400 Body weight 151.96 kg Jagjit Cheema MD Work Phone: [facility] 09-11-2024 08:25-0400 Diastolic blood pressure 70 mm[Hg] Jagjit Cheema MD Work Phone: [facility] 09-11-2024 08:25-0400 Heart rate 77 /min Jagjit Cheema MD Work Phone: [facility] 09-11-2024 08:25-0400 SaO2% (BldA) [Mass fraction] 99 % Jagjit Cheema MD Work Phone: [facility] 09-11-2024 08:25-0400 Systolic blood pressure 148 mm[Hg] Jagjit Cheema MD Work Phone: [facility] 08-16-2024 10:33-0500 Body mass index (BMI) [Ratio] 39.1 kg/m2 Dr. Jagjit Cheema MD Work Phone: [facility] 08-16-2024 10:33-0500 Body weight 149.[address] Jagjit Cheema MD Work Phone: [facility] 08-16-2024 10:33-0500 Diastolic blood pressure 84 mm[Hg] Dr. Jagjit Cheema MD Work Phone: [facility] 08-16-2024 10:33-0500 Heart rate 72 /min Dr. Jagjit Cheema MD Work Phone: [facility] 08-16-2024 10:33-0500 Respiratory rate 16 /min Dr. Jagjit Cheema MD Work Phone: [facility] 08-16-2024 10:33-0500 Systolic blood pressure 148 mm[Hg] Dr. Jagjit Cheema MD Work Phone: [facility] 07-08-2024 09:34-0500 Diastolic blood pressure 80 mm[Hg] Jagjit Cheema MD Work Phone: [facility] 07-08-2024 09:34-0500 Systolic blood pressure 136 mm[Hg] Jagjit Cheema MD Work Phone: [facility] 07-08-2024 09:06-0500 Body height 195.6 cm Jagjit Cheema MD Work Phone: [facility] 07-08-2024 09:06-0500 Body mass index (BMI) [Ratio] 39.13 kg/m2 Jagjit Cheema MD Work Phone: [facility] 07-08-2024 09:06-0500 Body weight 149.69 kg Jagjit Cheema MD Work Phone: [facility] 07-08-2024 09:06-0500 Heart rate 87 /min Jagjit Cheema MD Work Phone: [facility] 06-24-2024 09:03-0500 Body mass index (BMI) [Ratio] 39.13 kg/m2 Jagjit Cheema MD Work Phone: [facility] 06-24-2024 09:03-0500 Body temperature 97.2 [degF] Jagjit Cheema MD Work Phone: [facility] 06-24-2024 09:03-0500 Body weight 149.69 kg Jagjit Cheema MD Work Phone: [facility] 06-24-2024 09:03-0500 Diastolic blood pressure 72 mm[Hg] Jagjit Cheema MD Work Phone: [facility] 06-24-2024 09:03-0500 Heart rate 88 /min Jagjit Cheema MD Work Phone: [facility] 06-24-2024 09:03-0500 SaO2% (BldA) [Mass fraction] 98 % Jagjit Cheema MD Work Phone: [facility] 06-24-2024 09:03-0500 Systolic blood pressure 140 mm[Hg] Jagjit Cheema MD Work Phone: [facility] 06-17-2024 14:22-0500 Body mass index (BMI) [Ratio] 39.73 kg/m2 Jagjit Cheema MD Work Phone: [facility] 06-17-2024 14:22-0500 Body temperature 100.09 [degF] Jagjit Cheema MD Work Phone: [facility] 06-17-2024 14:22-0500 Body weight 151.96 kg Jagjit Cheema MD Work Phone: [facility] 06-17-2024 14:22-0500 Diastolic blood pressure 92 mm[Hg] Jagjit Cheema MD Work Phone: [facility] 06-17-2024 14:22-0500 Heart rate 79 /min Jagjit Cheema MD Work Phone: [facility] 06-17-2024 14:22-0500 SaO2% (BldA) [Mass fraction] 99 % Jagjit Cheema MD Work Phone: [facility] 06-17-2024 14:22-0500 Systolic blood pressure 152 mm[Hg] Jagjit Cheema MD Work Phone: [facility] 06-13-2024 15:51-0500 Body mass index (BMI) [Ratio] 40.02 kg/m2 Carolann Lucas APRN.LEASING ASSISTANT Work Phone: [facility] 06-13-2024 15:51-0500 Body temperature 97.7 [degF] Carolann Lucas PARK KEEPER.LEASING ASSISTANT Work Phone: [facility] 06-13-2024 15:51-0500 Body weight 153.1 kg Carolann Lucas PARK KEEPER.LEASING ASSISTANT Work Phone: [facility] 06-13-2024 15:51-0500 Diastolic blood pressure 74 mm[Hg] Carolann Lucas PARK KEEPER.LEASING ASSISTANT Work Phone: [facility] 06-13-2024 15:51-0500 Heart rate 90 /min Carolann Lance PARK KEEPER.LEASING ASSISTANT Work Phone: [facility] 06-13-2024 15:51-0500 Respiratory rate 16 /min Carolann Lance PARK KEEPER.LEASING ASSISTANT Work Phone: [facility] 06-13-2024 15:51-0500 SaO2% (BldA) [Mass fraction] 97 % Carolann Lance PARK KEEPER.LEASING ASSISTANT Work Phone: [facility] 06-13-2024 15:51-0500 Systolic blood pressure 136 mm[Hg] Carolann Lance PARK KEEPER.LEASING ASSISTANT Work Phone: [facility] 04-25-2024 13:18-0500 Body mass index (BMI) [Ratio] 39.48 kg/m2 Lisa Podlogar PARK KEEPER.LEASING ASSISTANT Work Phone: [facility] 04-25-2024 13:18-0500 Body weight 151 kg Lisa Podlogar PARK KEEPER.LEASING ASSISTANT Work Phone: [facility] 04-25-2024 13:18-0500 Diastolic blood pressure 78 mm[Hg] Lisa Podlogar PARK KEEPER.LEASING ASSISTANT Work Phone: [facility] 04-25-2024 13:18-0500 Heart rate 78 /min Lisa Podlogar PARK KEEPER.LEASING ASSISTANT Work Phone: [facility] 04-25-2024 13:18-0500 SaO2% (BldA) [Mass fraction] 97 % Lisa Podlogar PARK KEEPER.LEASING ASSISTANT Work Phone: [facility] 04-25-2024 13:18-0500 Systolic blood pressure 140 mm[Hg] Lisa Podlogar PARK KEEPER.LEASING ASSISTANT Work Phone: [facility] 04-10-2024 11:23-0400 Body mass index (BMI) [Ratio] 38.99 kg/m2 Rojas Dominguez MD Work Phone: [facility] 04-10-2024 11:23-0400 Body temperature 97.7 [degF] Rojas Dominguez MD Work Phone: [facility] 04-10-2024 11:23-0400 Body weight 149.14 kg Rojas Dominguez MD Work Phone: [facility] 04-10-2024 11:23-0400 Diastolic blood pressure 72 mm[Hg] Rojas Dominguez MD Work Phone: [facility] 04-10-2024 11:23-0400 Heart rate 73 /min Rojas Dominguez MD Work Phone: [facility] 04-10-2024 11:23-0400 Respiratory rate 18 /min Rojas Dominguez MD Work Phone: [facility] 04-10-2024 11:23-0400 SaO2% (BldA) [Mass fraction] 98 % Rojas Dominguez MD Work Phone: [facility] 04-10-2024 11:23-0400 Systolic blood pressure 130 mm[Hg] Rojas Dominguez MD Work Phone: [facility] 03-13-2024 09:03-0400 Body mass index (BMI) [Ratio] 39.01 kg/m2 Jagjit Cheema MD Work Phone: [facility] 03-13-2024 09:03-0400 Body weight 149.23 kg Jagjit Cheema MD Work Phone: [facility] 03-13-2024 09:03-0400 Diastolic blood pressure 72 mm[Hg] Jagjit Cheema MD Work Phone: [facility] 03-13-2024 09:03-0400 Heart rate 71 /min Jagjit Cheema MD Work Phone: [facility] 03-13-2024 09:03-0400 SaO2% (BldA) [Mass fraction] 98 % Jagjit Cheema MD Work Phone: [facility] 03-13-2024 09:03-0400 Systolic blood pressure 134 mm[Hg] Jagjit Cheema MD Work Phone: [facility] 03-08-2024 09:43-0400 Body mass index (BMI) [Ratio] 38.69 kg/m2 Jagjit Cheema MD Work Phone: [facility] 03-08-2024 09:43-0400 Body temperature 99.1 [degF] Jagjit Cheema MD Work Phone: [facility] 03-08-2024 09:43-0400 Body weight 148 kg Jagjit Cheema MD Work Phone: [facility] 03-08-2024 09:43-0400 Diastolic blood pressure 82 mm[Hg] Jagjit Cheema MD Work Phone: [facility] 03-08-2024 09:43-0400 Heart rate 77 /min Jagjit Cheema MD Work Phone: [facility] 03-08-2024 09:43-0400 SaO2% (BldA) [Mass fraction] 96 % Jagjit Cheema MD Work Phone: [facility] 03-08-2024 09:43-0400 Systolic blood pressure 148 mm[Hg] Jagjit Cheema MD Work Phone: [facility] 12-29-2023 08:00-0400 Body height 195.6 cm Jagjit Cheema MD Work Phone: [facility] 12-29-2023 08:00-0400 Body mass index (BMI) [Ratio] 38.9 kg/m2 Jagjit Cheema MD Work Phone: [facility] 12-29-2023 08:00-0400 Body weight 148.78 kg Jagjit Cheema MD Work Phone: [facility] 12-29-2023 08:00-0400 Diastolic blood pressure 78 mm[Hg] Jagjit Cheema MD Work Phone: [facility] 12-29-2023 08:00-0400 Heart rate 79 /min Jagjit Cheema MD Work Phone: [facility] 12-29-2023 08:00-0400 SaO2% (BldA) [Mass fraction] 97 % Jagjit Cheema MD Work Phone: [facility] 12-29-2023 08:00-0400 Systolic blood pressure 176 mm[Hg] Jagjit Cheema MD Work Phone: [facility] 12-13-2023 09:30-0400 Body temperature 98.71 [degF] Susan Haagen PARK KEEPER.LEASING ASSISTANT Work Phone: [facility] 12-13-2023 09:30-0400 Diastolic blood pressure 86 mm[Hg] Susan Haagen PARK KEEPER.LEASING ASSISTANT Work Phone: [facility] 12-13-2023 09:30-0400 Heart rate 64 /min Susan Hadeloris PARK KEEPER.LEASING ASSISTANT Work Phone: [facility] 12-13-2023 09:30-0400 Respiratory rate 16 /min Susan Kerr PARK KEEPER.LEASING ASSISTANT Work Phone: [facility] 12-13-2023 09:30-0400 SaO2% (BldA) [Mass fraction] 97 % Susan Kerr PARK KEEPER.LEASING ASSISTANT Work Phone: [facility] 12-13-2023 09:30-0400 Systolic blood pressure 140 mm[Hg] Susan Haagen PARK KEEPER.LEASING ASSISTANT Work Phone: [facility] 11-29-2023 14:10-0400 Diastolic blood pressure 84 mm[Hg] Jagjit Cheema MD Work Phone: [facility] 11-29-2023 14:10-0400 Systolic blood pressure 136 mm[Hg] Jagjit Cheema MD Work Phone: [facility] 11-29-2023 13:56-0400 Body mass index (BMI) [Ratio] 38.66 kg/m2 Jagjit Cheema MD Work Phone: [facility] 11-29-2023 13:56-0400 Body weight 147.87 kg Jagjit Cheema MD Work Phone: [facility] 11-29-2023 13:56-0400 Heart rate 78 /min Jagjit Cheema MD Work Phone: [facility] 11-29-2023 13:56-0400 SaO2% (BldA) [Mass fraction] 98 % Jagjit Cheema MD Work Phone: [facility] 10-16-2023 14:28-0400 Body height 195.[address] Jagjit Cheema Work Phone: [facility] 10-16-2023 14:28-0400 Body mass index (BMI) [Ratio] 39.2 kg/m2 Dr. Jagjit Cheema Work Phone: [facility] 10-16-2023 14:28-0400 Body weight 150.[address] Jagjit Cheema Work Phone: [facility] 10-16-2023 14:28-0400 Diastolic blood pressure 71 mm[Hg] Dr. Jagjit Cheema Work Phone: [facility] 10-16-2023 14:28-0400 Heart rate 66 /min Dr. Jagjit Cheema Work Phone: [facility] 10-16-2023 14:28-0400 Respiratory rate 16 /min Dr. Jagjit Cheema Work Phone: [facility] 10-16-2023 14:28-0400 Systolic blood pressure 147 mm[Hg] Dr. Jagjit Cheema Work Phone: [facility] 09-05-2023 16:04-0400 Body height 195.6 cm Jagjit Cheema MD Work Phone: [facility] 09-05-2023 16:04-0400 Body weight 151.05 kg Jagjit Cheema MD Work Phone: [facility] 09-05-2023 16:04-0400 Diastolic blood pressure 68 mm[Hg] Jagjit Cheema MD Work Phone: [facility] 09-05-2023 16:04-0400 Heart rate 72 /min Jagjit Cheema MD Work Phone: [facility] 09-05-2023 16:04-0400 SaO2% (BldA) [Mass fraction] 96 % Jagjit Cheema MD Work Phone: [facility] 09-05-2023 16:04-0400 Systolic blood pressure 138 mm[Hg] Jagjit Cheema MD Work Phone: [facility] 07-05-2023 13:02-0500 Body height 195.[address] Jagjit Cheema Work Phone: [facility] 07-05-2023 13:02-0500 Body mass index (BMI) [Ratio] 40.4 kg/m2 Dr. Jagjit Cheema Work Phone: [facility] 07-05-2023 13:02-0500 Body weight 154.[address] Jagjit Cheema Work Phone: [facility] 07-05-2023 13:02-0500 Diastolic blood pressure 71 mm[Hg] Dr. Jagjit Cheema Work Phone: [facility] 07-05-2023 13:02-0500 Heart rate 70 /min Dr. Jagjit Cheema Work Phone: [facility] 07-05-2023 13:02-0500 Respiratory rate 18 /min Dr. Jagjit Cheema Work Phone: [facility] 07-05-2023 13:02-0500 Systolic blood pressure 145 mm[Hg] Dr. Jagjit Cheema Work Phone: [facility] 01-23-2023 17:22-0400 Diastolic blood pressure 70 mm[Hg] Jagjit Cheema MD Work Phone: [facility] 01-23-2023 17:22-0400 Systolic blood pressure 138 mm[Hg] Jagjit Cheema MD Work Phone: [facility] 01-23-2023 16:52-0400 Body height 195.6 cm Jagjit Cheema MD Work Phone: [facility] 01-23-2023 16:52-0400 Body weight 148.96 kg Jagjit Cheema MD Work Phone: [facility] 01-23-2023 16:52-0400 Heart rate 64 /min Jagjit Cheema MD Work Phone: [facility] 01-23-2023 16:52-0400 SaO2% (BldA) [Mass fraction] 97 % Jagjit Cheema MD Work Phone: [facility] 12-19-2022 15:34-0400 Body height 195.6 cm Jagjit Cheema MD Work Phone: [facility] 12-19-2022 15:34-0400 Body weight 149.41 kg Jagjit Cheema MD Work Phone: [facility] 12-19-2022 15:34-0400 Diastolic blood pressure 68 mm[Hg] Jagjit Cheema MD Work Phone: [facility] 12-19-2022 15:34-0400 Heart rate 64 /min Jagjit Cheema MD Work Phone: [facility] 12-19-2022 15:34-0400 SaO2% (BldA) [Mass fraction] 97 % Jagjit Cheema MD Work Phone: [facility] 12-19-2022 15:34-0400 Systolic blood pressure 138 mm[Hg] Jagjit Cheema MD Work Phone: [facility] 12-16-2022 12:54-0400 Body temperature 98.2 [degF] Dr. Jagjit Cheema Work Phone: [facility] 12-16-2022 12:54-0400 Diastolic blood pressure 68 mm[Hg] Dr. Jagjit Cheema Work Phone: [facility] 12-16-2022 12:54-0400 Heart rate 68 /min Dr. Jagjit Cheema Work Phone: [facility] 12-16-2022 12:54-0400 Respiratory rate 18 /min Dr. Jagjit Cheema Work Phone: [facility] 12-16-2022 12:54-0400 SaO2% (BldA) [Mass fraction] 100 % Dr. Jagjit Cheema Work Phone: [facility] 12-16-2022 12:54-0400 Systolic blood pressure 131 mm[Hg] Dr. Jagjit Cheema Work Phone: 4(775)[phone] [place] [address] 12-16-2022 06:00-0400 Body mass index (BMI) [Ratio] 38.2 kg/m2 Dr. Jagjit Cheema Work Phone: 3(434)[phone] [place] [address] 12-16-2022 06:00-0400 Body weight 146.[address] Jagjit Cheema Work Phone: 4(260)583-602431 [place] [address] 12-15-2022 23:33-0400 Body height 195.[address] Jagjit Cheema Work Phone: 7(201)899-253831 [place] [address] 12-15-2022 23:00-0400 Body temperature 100.3 [degF] Dr. Jagjit Cheema Work Phone: 6(203)508-999731 [place] [address] 12-15-2022 23:00-0400 Diastolic blood pressure 68 mm[Hg] Dr. Jagjit Cheema Work Phone: 0(059)348-981131 [place] [address] 12-15-2022 23:00-0400 Heart rate 89 /min Dr. Jagjit Cheema Work Phone: 6(893)[phone] [place] [address] 12-15-2022 23:00-0400 Respiratory rate 20 /min Dr. Jagjit Cheema Work Phone: 5(930)456-172631 [place] [address] 12-15-2022 23:00-0400 SaO2% (BldA) [Mass fraction] 97 % Dr. Jagjit Cheema Work Phone: 0(474)928-844031 [place] [address] 12-15-2022 23:00-0400 Systolic blood pressure 136 mm[Hg] Dr. Jagjit Cheema Work Phone: 5(342)094-628231 [place] [address] 12-15-2022 18:54-0400 Body height 195.[address] Jagjit Cheema Work Phone: 4(385)014-261031 [place] [address] 12-15-2022 18:54-0400 Body mass index (BMI) [Ratio] 38.8 kg/m2 Dr. Jagjit Cheema Work Phone: 0(356)554-751331 [place] [address] 12-15-2022 18:54-0400 Body weight 148.[address] Jagjit Cheema Work Phone: 1(514)228-069731 [place] [address] 12-14-2022 20:51-0400 Body temperature 98.4 [degF] Dr. Jagjit Cheema Work Phone: [facility] 12-14-2022 20:51-0400 Diastolic blood pressure 70 mm[Hg] Dr. Jagjit Cheema Work Phone: [facility] 12-14-2022 20:51-0400 Heart rate 78 /min Dr. Jagjit Cheema Work Phone: [facility] 12-14-2022 20:51-0400 Respiratory rate 16 /min Dr. Jagjit Cheema Work Phone: [facility] 12-14-2022 20:51-0400 SaO2% (BldA) [Mass fraction] 97 % Dr. Jagjit Cheema Work Phone: [facility] 12-14-2022 20:51-0400 Systolic blood pressure 136 mm[Hg] Dr. Jagjit Cheema Work Phone: [facility] 12-14-2022 16:47-0400 Body mass index (BMI) [Ratio] 38 kg/m2 Dr. Jagjit Cheema Work Phone: [facility] 12-14-2022 16:47-0400 Body weight 145.[address] Jagjit Cheema Work Phone: [facility] 12-14-2022 16:17-0400 Body temperature 100.9 [degF] Jagjit Cheema MD Work Phone: [facility] 12-14-2022 16:17-0400 Body weight 145.69 kg Jagjit Cheema MD Work Phone: [facility] 12-14-2022 16:17-0400 Diastolic blood pressure 60 mm[Hg] Jagjit Cheema MD Work Phone: [facility] 12-14-2022 16:17-0400 Heart rate 80 /min Jagjit Cheema MD Work Phone: [facility] 12-14-2022 16:17-0400 SaO2% (BldA) [Mass fraction] 99 % Jagjit Cheema MD Work Phone: [facility] 12-14-2022 16:17-0400 Systolic blood pressure 130 mm[Hg] Jagjit Cheema MD Work Phone: [facility] 11-07-2022 10:11-0400 Diastolic blood pressure 78 mm[Hg] Dr. Jagjit Cheema Work Phone: [facility] 11-07-2022 10:11-0400 Systolic blood pressure 140 mm[Hg] Dr. Jagjit Cheema Work Phone: [facility] 11-07-2022 09:48-0400 Body mass index (BMI) [Ratio] 38.3 kg/m2 Dr. Jagjit Cheema Work Phone: [facility] 11-07-2022 09:48-0400 Body weight 146.[address] Jagjit Cheema Work Phone: [facility] 11-07-2022 09:48-0400 Heart rate 74 /min Dr. Jagjit Cheema Work Phone: [facility] 11-07-2022 09:48-0400 Respiratory rate 16 /min Dr. Jagjit Cheema Work Phone: [facility] 10-25-2022 14:54-0400 Diastolic blood pressure 66 mm[Hg] Jagjit Cheema MD Work Phone: [facility] 10-25-2022 14:54-0400 Systolic blood pressure 130 mm[Hg] Jagjit Cheema MD Work Phone: [facility] 10-25-2022 14:29-0400 Body height 195.6 cm Jagjit Cheema MD Work Phone: [facility] 10-25-2022 14:29-0400 Body weight 147.42 kg Jagjit Cheema MD Work Phone: [facility] 10-25-2022 14:29-0400 Heart rate 78 /min Jagjit Cheema MD Work Phone: [facility] 10-25-2022 14:29-0400 SaO2% (BldA) [Mass fraction] 98 % Jagjit Cheema MD Work Phone: [facility] 09-22-2022 16:16-0400 Body temperature 98.49 [degF] Jagjit Cheema MD Work Phone: [facility] 09-22-2022 16:16-0400 Body weight 150.14 kg Jagjit Cheema MD Work Phone: [facility] 09-22-2022 16:16-0400 Diastolic blood pressure 62 mm[Hg] Jagjit Cheema MD Work Phone: [facility] 09-22-2022 16:16-0400 Heart rate 72 /min Jagjit Cheema MD Work Phone: [facility] 09-22-2022 16:16-0400 SaO2% (BldA) [Mass fraction] 97 % Jagjit Cheema MD Work Phone: [facility] 09-22-2022 16:16-0400 Systolic blood pressure 146 mm[Hg] Jagjit Cheema MD Work Phone: [facility] 08-09-2022 11:17-0500 Body height 195.[address] Jagjit Cheema Work Phone: [facility] 08-09-2022 11:17-0500 Body weight 149.[address] Jagjit Cheema Work Phone: [facility] 08-08-2022 11:05-0500 Body mass index (BMI) [Ratio] 39.1 kg/m2 Dr. Jagjit Cheema Work Phone: [facility] 08-03-2022 08:26-0500 Body mass index (BMI) [Ratio] 39.1 kg/m2 Dr. Jagjit Cheema Work Phone: [facility] 08-03-2022 08:26-0500 Body weight 149.[address] Jagjit Cheema Work Phone: [facility] 08-03-2022 08:26-0500 Diastolic blood pressure 76 mm[Hg] Dr. Jagjit Cheema Work Phone: [facility] 08-03-2022 08:26-0500 Heart rate 65 /min Dr. Jagjit Cheema Work Phone: 1(074)684-898253 [place] [address] 08-03-2022 08:26-0500 Respiratory rate 18 /min Dr. Jagjit Cheema Work Phone: 3(118)227-606331 [place] [address] 08-03-2022 08:26-0500 SaO2% (BldA) [Mass fraction] 98 % Dr. Jagjit Cheema Work Phone: 2(261)394-057331 [place] [address] 08-03-2022 08:26-0500 Systolic blood pressure 136 mm[Hg] Dr. Jagjit Cheema Work Phone: 0(078)258-029331 [place] [address] 06-16-2022 13:29-0500 Body height 195.[address] Jagjit Cheema Work Phone: 8(610)242-527031 [place] [address] Work Phone: 06-16-2022 13:29-0500 Body mass index (BMI) [Ratio] 38.6 kg/m2 Dr. Jagjit Cheema Work Phone: 6(483)339-128531 [place] [address] 06-16-2022 13:29-0500 Body weight 147.[address] Jagjit Cheema Work Phone: 0(031)966-308231 [place] [address] 06-16-2022 13:29-0500 Diastolic blood pressure 77 mm[Hg] Dr. Jagjit Cheema Work Phone: 8(479)458-200031 [place] [address] 06-16-2022 13:29-0500 Heart rate 67 /min Dr. Jagjit Cheema Work Phone: 1(237)706-502931 [place] [address] 06-16-2022 13:29-0500 Respiratory rate 20 /min Dr. Jagjit Cheema Work Phone: 2(860)301-130831 [place] [address] 06-16-2022 13:29-0500 SaO2% (BldA) [Mass fraction] 100 % Dr. Jagjit Cheema Work Phone: 3(406)227-312031 [place] [address] 06-16-2022 13:29-0500 Systolic blood pressure 147 mm[Hg] Dr. Jagjit Chemea Work Phone: 3(641)080-388931 [place] [address] 05-07-2022 14:37-0500 Diastolic blood pressure 94 mm[Hg] Dr. Jagjit Cheema Work Phone: 8(565)[phone] [place] [address] 05-07-2022 14:37-0500 Heart rate 65 /min Dr. Jagjit Cheema Work Phone: 9(610)[phone] [place] [address] 05-07-2022 14:37-0500 Respiratory rate 16 /min Dr. Jagjit Cheema Work Phone: 8(134)[phone] [place] [address] 05-07-2022 14:37-0500 SaO2% (BldA) [Mass fraction] 97 % Dr. Jagjit Cheema Work Phone: 1(284)[phone] [place] [address] 05-07-2022 14:37-0500 Systolic blood pressure 148 mm[Hg] Dr. Jagjit Cheema Work Phone: 0(187)[phone] [place] [address] 05-07-2022 11:28-0500 Body height 195.[address] Jagjit Cheema Work Phone: 8(178)[phone] [place] [address] Work Phone: 05-07-2022 11:28-0500 Body mass index (BMI) [Ratio] 39.1 kg/m2 Dr. Jagjit Cheema Work Phone: 4(007)[phone] [place] [address] 05-07-2022 11:28-0500 Body temperature 97.8 [degF] Dr. Jagjit Cheema Work Phone: 8(122)[phone] [place] [address] 05-07-2022 11:28-0500 Body weight 149.[address] Jagjit Cheema Work Phone: 8(205)[phone] [place] [address] 04-29-2022 10:06-0500 Body height 195.[address] Jagjit Cheema Work Phone: 8(465)[phone] [place] [address] Work Phone: 04-29-2022 10:06-0500 Body mass index (BMI) [Ratio] 38.2 kg/m2 Dr. Jagjit Cheema Work Phone: 8(105)[phone] [place] [address] 04-29-2022 10:06-0500 Body weight 146.[address] Jagjit Cheema Work Phone: 9(238)[phone] [place] [address] 04-29-2022 10:06-0500 Diastolic blood pressure 66 mm[Hg] Dr. Jagjit Cheema Work Phone: [facility] 04-29-2022 10:06-0500 Heart rate 92 /min Dr. Jagjit Cheema Work Phone: [facility] 04-29-2022 10:06-0500 Respiratory rate 16 /min Dr. Jagjit Cheema Work Phone: [facility] 04-29-2022 10:06-0500 Systolic blood pressure 140 mm[Hg] Dr. Jagjit Cheema Work Phone: [facility] 02-12-2022 14:28-0400 Diastolic blood pressure 77 mm[Hg] Dr. Jagjit Cheema Work Phone: [facility] Work Phone: 02-12-2022 14:28-0400 Heart rate 60 /min Dr. Jagjit Cheema Work Phone: [facility] Work Phone: 02-12-2022 14:28-0400 Respiratory rate 18 /min Dr. Jagjit Cheema Work Phone: [facility] Work Phone: 02-12-2022 14:28-0400 SaO2% (BldA) [Mass fraction] 100 % Dr. Jagjit Cheema Work Phone: [facility] Work Phone: 02-12-2022 14:28-0400 Systolic blood pressure 149 mm[Hg] Dr. Jagjit Cheema Work Phone: [facility] Work Phone: 02-12-2022 11:29-0400 Body height 195.[address] Jagjit Cheema Work Phone: [facility] Work Phone: 02-12-2022 11:29-0400 Body mass index (BMI) [Ratio] 38.5 kg/m2 Dr. Jagjit Cheema Work Phone: [facility] Work Phone: 02-12-2022 11:29-0400 Body temperature 98.2 [degF] Dr. Jagjit Cheema Work Phone: [facility] Work Phone: 02-12-2022 11:29-0400 Body weight 147.[address] Jagjit Cheema Work Phone: [facility] Work Phone: 02-12-2022 10:50-0400 Body temperature 98.2 [degF] Carolann Lance PARK KEEPER.LEASING ASSISTANT Work Phone: [facility] 02-12-2022 10:50-0400 Body weight 147.42 kg Carolann Lance PARK KEEPER.LEASING ASSISTANT Work Phone: [facility] 02-12-2022 10:50-0400 Diastolic blood pressure 80 mm[Hg] Carolann Lance PARK KEEPER.LEASING ASSISTANT Work Phone: [facility] 02-12-2022 10:50-0400 Heart rate 72 /min Carolann Lance PARK KEEPER.LEASING ASSISTANT Work Phone: [facility] 02-12-2022 10:50-0400 Respiratory rate 16 /min Carolann Lance PARK KEEPER.LEASING ASSISTANT Work Phone: [facility] 02-12-2022 10:50-0400 SaO2% (BldA) [Mass fraction] 98 % Carolann Lance PARK KEEPER.LEASING ASSISTANT Work Phone: [facility] 02-12-2022 10:50-0400 Systolic blood pressure 152 mm[Hg] Carolann Lance PARK KEEPER.LEASING ASSISTANT Work Phone: [facility] 11-23-2021 08:56-0400 Body height 195.[address] Jagjit Cheema Work Phone: [facility] Work Phone: 11-23-2021 08:56-0400 Body mass index (BMI) [Ratio] 38.5 kg/m2 Dr. Jajgit Cheema Work Phone: [facility] Work Phone: 11-23-2021 08:56-0400 Body weight 147.[address] Jagjit Cheema Work Phone: [facility] Work Phone: 11-23-2021 08:56-0400 Diastolic blood pressure 75 mm[Hg] Dr. Jagjit Cheema Work Phone: [facility] Work Phone: 11-23-2021 08:56-0400 Heart rate 65 /min Dr. Jagjit Cheema Work Phone: [facility] Work Phone: 11-23-2021 08:56-0400 Respiratory rate 18 /min Dr. Jagjit Cheema Work Phone: [facility] Work Phone: 11-23-2021 08:56-0400 Systolic blood pressure 152 mm[Hg] Dr. Jagjit Cheema Work Phone: [facility] Work Phone: 10-20-2021 08:31-0400 Body mass index (BMI) [Ratio] 38.9 kg/m2 Dr. Jagjit Cheema Work Phone: [facility] Work Phone: 10-20-2021 08:31-0400 Body weight 149.[address] Jagjit Cheema Work Phone: [facility] Work Phone: 10-20-2021 08:31-0400 Diastolic blood pressure 78 mm[Hg] Dr. Jagjit Cheema Work Phone: [facility] Work Phone: 10-20-2021 08:31-0400 Heart rate 68 /min Dr. Jagjit Cheema Work Phone: [facility] Work Phone: 10-20-2021 08:31-0400 Respiratory rate 12 /min Dr. Jagjit Cheema Work Phone: [facility] Work Phone: 10-20-2021 08:31-0400 Systolic blood pressure 142 mm[Hg] Dr. Jagjit Cheema Work Phone: [facility] Work Phone: 10-20-2021 08:31-0400 Body height 195.[address] Jagjit Cheema Work Phone: [facility] Work Phone: 10-20-2021 08:31-0400 Body mass index (BMI) [Ratio] 38.9 kg/m2 Dr. Jagjit Cheema Work Phone: [facility] Work Phone: 10-20-2021 08:31-0400 Body weight 149.[address] Jagjit Cheema Work Phone: [facility] Work Phone: 10-20-2021 08:31-0400 Diastolic blood pressure 78 mm[Hg] Dr. Jagjit Cheema Work Phone: [facility] Work Phone: 10-20-2021 08:31-0400 Heart rate 68 /min Dr. Jagjit Cheema Work Phone: [facility] Work Phone: 10-20-2021 08:31-0400 Respiratory rate 12 /min Dr. Jajgit Cheema Work Phone: [facility] Work Phone: 10-20-2021 08:31-0400 Systolic blood pressure 142 mm[Hg] Dr. Jagjit Cheema Work Phone: [facility] Work Phone: 10-14-2021 12:04-0400 Body temperature 97.7 [degF] Kisha Wen APRN.LEASING ASSISTANT Work Phone: [facility] 10-14-2021 12:04-0400 Body weight 148.87 kg Kisha Wen APRN.LEASING ASSISTANT Work Phone: [facility] 10-14-2021 12:04-0400 Diastolic blood pressure 82 mm[Hg] Kisha Wen APRN.LEASING ASSISTANT Work Phone: [facility] 10-14-2021 12:04-0400 Heart rate 64 /min Kisha Wen APRN.LEASING ASSISTANT Work Phone: [facility] 10-14-2021 12:04-0400 Respiratory rate 20 /min Kisha Wen APRN.LEASING ASSISTANT Work Phone: [facility] 10-14-2021 12:04-0400 SaO2% (BldA) [Mass fraction] 99 % Kisha Wen APRN.LEASING ASSISTANT Work Phone: [facility] 10-14-2021 12:04-0400 Systolic blood pressure 150 mm[Hg] Kisha Wen APRN.LEASING ASSISTANT Work Phone: [facility] 12-14-2016 16:00-0400 BMI (Body Mass Index) [...] 01-20-2025 ambulatory Jagjit Cheema MD Work Phone: [facility] [place] Comment on above: Colonoscopy Start: 01-07-2025 End: 01-07-2025 Admission to same day surgery center Richi Whitney MD Work Phone: Ambulatory Surgery Start: 01-07-2025 End: 01-07-2025 ambulatory Richi Whitney MD Work Phone: Ambulatory Surgery Start: 12-31-2024 End: 12-31-2024 Patient encounter procedure Yesica Bacon PARK KEEPER.LEASING ASSISTANT Work Phone: General Surgery Comment on above: Rectal bleeding Start: 12-31-2024 End: 12-31-2024 ambulatory YESICA BACON Facility:[facility] Start: 12-30-2024 End: 12-30-2024 Refill Jagjit Cheema MD Work Phone: [facility] [place] Comment on above: Refill Request Start: 12-24-2024 End: 12-24-2024 Patient encounter procedure Jagjit Cheema MD Work Phone: [facility] [place] Comment on above: Rectal bleeding (Minnie dionisio Dx); Hyperglycemia; Sleep apnea, unspecified type; 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; Class 2 obesity with body mass index (BMI) of 38.0 to 38.9 in adult, unspecified obesity type, unspecified whether serious comorbidity present; Attention deficit disorder, unspecified type Start: 12-24-2024 End: 12-24-2024 Telephone encounter Jagjit Cheema MD Work Phone: [facility] Comment on above: Pharmacy Call Start: 12-24-2024 End: 12-24-2024 ambulatory [facility] Facility:[facility] Start: 11-28-2024 End: 11-28-2024 Patient encounter procedure Hussein RUIZ -[facility] Work Phone: Start: 11-28-2024 End: 11-28-[address] Jagjit Cheema MD Work Phone: [facility] Work Phone: Start: 11-21-2024 ambulatory [facility] Facility:[facility] Start: 11-21-2024 Non-patient / Non-visit Dr. Lanette Haywood MD -[facility] Start: 11-21-2024 End: 11-21-[address] Jagjit Cheema MD Work Phone: [facility] Work Phone: Start: 11-21-2024 End: 11-21-[address] Karl Vo MD -Cardiovascular Services Work Phone: Start: 11-21-2024 End: 11-21-2024 ambulatory [facility] Start: 11-20-2024 End: 11-20-2024 Emergency department patient visit Dr. Jagjit Cheema MD Work Phone: -Emergency Department Work Phone: Start: 11-18-2024 End: 01-18-2025 Follow-up encounter Susan Kerr APRN.LEASING ASSISTANT Work Phone: [facility] Start: 11-18-2024 End: 11-18-2024 Subsequent hospital visit by physician [facility] Work Phone: Radiology Comment on above: Acute cough [R05.1] Start: 11-18-2024 ambulatory [facility] Facility :[facility] Start: 11-18-2024 End: 11-18-2024 Office outpatient visit 25 minutes Susan Kerr APRN.LEASING ASSISTANT Work Phone: [facility] Comment on above: Bronchitis (Primary Dx); SOB (shortness of breath); Acute cough Start: 11-18-2024 End: 11-18-2024 ambulatory [facility] Facility:[facility] Start: 10-28-2024 End: 10-28-2024 Emergency department patient visit Dr. Jagjit Cheema MD Work Phone: -Emergency Department Work Phone: Start: 10-28-2024 End: 10-28-2024 ambulatory Nurse Intm/Famp Triage [facility] Work Phone: Nurse Phone Triage Comment on above: Rectal Bleeding Start: 10-21-2024 End: 10-21-2024 Patient encounter procedure Jagjit Cheema MD Work Phone: [facility] [place] Comment on above: Attention deficit di sorder, unspecified type (Primary Dx); Anxiety with depression; Thrombocytopenia Start: 10-21-2024 End: 10-21-2024 ambulatory JAGJIT CHEEMA Facility:[facility] Start: 10-18-2024 End: 12-18-2024 Follow-up encounter Jagjit Cheema MD Work Phone: [facility] [place] Start: 10-18-2024 End: 10-18-2024 ambulatory [facility] Facility:[facility] Start: 10-16-2024 End: 10-16-2024 Refill Jagjit Cheema MD Work Phone: [facility] [place] Comment on above: Refill Request Start: 09-27-2024 End: 09-27-2024 Telephone encounter Jagjit Cheema MD Work Phone: Internal Medicine [place] Comment on above: Medication Problem Start: 09-23-2024 End: 09-23-2024 [facility]ulatory [facility] Start: 09-23-2024 End: 09-23-2024 Patient encounter procedure Jagjit Cheema MD Work Phone: [facility] [place] Comment on above: Attention deficit di sorder, unspecified type (Primary Dx); Anxiety with depression; Essential hypertension, benign Start: 09-19-2024 End: 09-19-2024 Telephone encounter Jagjit Cheema MD Work Phone: Pulmonology [facility] Comment on above: Patient Update Start: 09-18-2024 End: 09-18-2024 Follow-up encounter Jagjit Cheema MD Work Phone: Family [facility] Start: 09-17-2024 End: 09-17-2024 ambulatory JAGJIT CHEEMA Facility:[facility] Start: 09-11-2024 End: 09-11-2024 ambulatory JAGJIT CHEEMA Facility:[facility] Start: 09-11-2024 End: 09-11-2024 Patient encounter procedure Jagjit Cheema MD Work Phone: [facility] [place] Comment on above: Coronary artery dise ase involving seneca coronary artery of 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 angina pectoris (Primary Dx); Hyperlipidemia, unspecified hyperlipidemia type; Atrial flutter, unspecified type (HCC); Sleep apnea, unspecified type; Gastric intestinal metaplasia; History of pulmonary embolism; History of asthma; Fatigue, unspecified type Start: 08-16-2024 End: 08-16-2024 Patient encounter procedure [facility] Work Phone: Start: 08-16-2024 End: 08-16-2024 Refill Jagjit Cheema MD Work Phone: [facility] [place] Comment on above: Refill Request Start: 07-12-2024 End: 07-12-2024 Telephone encounter Jagjit Cheema MD Work Phone: [facility] [place] Comment on above: [employer] Start: 07-08-2024 End: 07-08-2024 Subsequent hospital visit by physician Xr [facility] [place] Work Phone: Radiology Comment on above: Bacterial pneumonia [J15.9] Start: 07-08-2024 End: 07-08-2024 ambulatory JAGJIT CHEEMA Facility:[facility] Start: 07-08-2024 End: 07-08-2024 Patient encounter procedure Jagjit Cheema MD Work Phone: [facility] [place] Comment on above: Bacterial pneumonia (Primary Dx); Atrial flutter, unspecified type (HCC); Hyperglycemia; Hypokalemia Start: 07-01-2024 End: 07-01-2024 Refill Jagjit Cheema MD Work Phone: [facility] [place] Comment on above: Refill Request Start: 06-25-2024 End: 06-25-2024 Telephone encounter Jagjit Cheema MD Work Phone: [facility] [place] Comment on above: Results Start: 06-24-2024 End: 06-24-2024 ambulatory [facility] Facility:[facility] Start: 06-24-2024 End: 06-24-2024 Patient encounter procedure Jagjit Cheema MD Work Phone: [facility] [place] Comment on above: Bacterial pneumonia (Primary Dx); Hemoptysis; History of pulmonary embolism; SOB (shortness of breath) Start: 06-17-2024 End: 06-17-2024 Subsequent hospital visit by physician [facility] [place] Work Phone: Radiology Comment on above: Bronchitis [J40] Start: 06-17-2024 End: 06-17-2024 ambulatory [facility] Facility:[facility] Start: 06-17-2024 End: 06-17-2024 Patient encounter procedure Jagjit Cheema MD Work Phone: [facility] [place] Comment on above: Bronchitis (Primary Dx); Sinobronchitis Start: 06-17-2024 End: 06-17-2024 Telephone encounter Jagjit Cheema MD Work Phone: [facility] [place] Comment on above: Patient Question; Or ders Results Start: 06-13-2024 End: 06-13-2024 Patient encounter procedure Carolann Lucas APRN.CNP Work Phone: [facility] Comment on above: Rhinosinusitis (Prim rachel Dx) Start: 06-13-2024 End: 06-13-2024 ambulatory [facility] Facility:[facility] Start: 06-04-2024 End: 06-04-2024 ambulatory [facility] Facility:[facility] Start: 04-26-2024 End: 04-26-2024 Telephone encounter Lisa Javed APRN.LEASING ASSISTANT Work Phone: [facility] [place] Comment on above: Lab add on Start: 04-25-2024 End: 04-25-2024 Subsequent hospital visit by physician Saba [facility] [place] Work Phone: Radiology Comment on above: Acute cough [R05.1] Start: 04-25-2024 End: 04-25-2024 ambulatory Jagjit Cheema MD Work Phone: [facility] [place] Comment on above: Fatigue Start: 04-25-2024 End: 04-25-2024 Patient encounter procedure Lisa Javed PARK KEEPER.LEASING ASSISTANT Work Phone: [facility] [place] Comment on above: Dizziness (Primary D x); Acute cough; Generalized weakness; SOB (shortness of breath) Start: 04-10-2024 End: 04-10-2024 Patient encounter procedure Rojas Dominguez MD Work Phone: [facility] [place] Comment on above: Viral URI with cough (Primary Dx); Uncomplicated asthma, unspecified asthma severity, unspecified whether persistent Start: 04-10-2024 End: 04-10-2024 ambulatory ROJAS DOMINGUEZ Facility:[facility] Start: 03-13-2024 End: 03-13-2024 ambulatory JAGJIT CHEEMA Facility:[facility] Start: 03-13-2024 End: 03-13-2024 Patient encounter procedure Jagjit Cheema MD Work Phone: [facility] [place] Comment on above: LLQ pain (Primary Dx ); RLQ abdominal pain; Diarrhea, unspecified type Start: 03-08-2024 ambulatory JAGJIT CHEEMA Facility :[facility] Start: 03-08-2024 End: 03-08-2024 Subsequent hospital visit by physician [facility] Comment on above: Left lower quadrant abdominal pain [R10.32] Start: 03-08-2024 End: 03-08-2024 Telephone encounter Jagjit Cheema MD Work Phone: [facility] [place] Comment on above: Results Start: 03-08-2024 End: 03-08-2024 ambulatory JAGJIT CHEEMA Facility:[facility] Start: 03-08-2024 End: 03-08-2024 Patient encounter procedure Jagjit Cheema MD Work Phone: [facility] [place] Comment on above: Coronary artery dise ase involving seneca coronary artery of 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 angina pectoris (Primary Dx); Hyperlipidemia, unspecified hyperlipidemia type; Presence of stent in coronary artery; Sleep apnea, unspecified type; Uncomplicated asthma, unspecified asthma severity, unspecified whether persistent; History of pulmonary embolism; History of TIAs; Gastroesophageal reflux disease, unspecified whether esophagitis present; Diarrhea, unspecified type; LLQ pain; Chronic RLQ pain; Left lower quadrant abdominal pain Start: 01-15-2024 End: 01-15-2024 ambulatory Wayland Chris Facility:[facility] Start: 01-09-2024 End: 01-09-2024 Office outpatient visit 10 minutes Beverley Gutierrez PARK KEEPER.LEASING ASSISTANT Work Phone: [facility] [place] Comment on above: COVID-19 (Primary Dx ) Start: 01-09-2024 End: 01-09-2024 ambulatory JAGJIT [facility] Facility:[facility] Start: 12-29-2023 End: 12-29-2023 Patient encounter procedure Jagjit Cheema MD Work Phone: [facility] [place] Comment on above: Bronchitis (Primary Dx); Atrial flutter, unspecified type (HCC); Uncomplicated asthma, unspecified asthma severity, unspecified whether persistent; Fatigue, unspecified type Start: 12-13-2023 Telephone encounter Susan puentes APRN.LEASING ASSISTANT Work Phone: [facility] [place] Comment on above: Orders Start: 12-13-2023 End: 12-13-2023 Office outpatient visit 25 minutes Susan Kerr APRN.LEASING ASSISTANT Work Phone: [facility] [place] Comment on above: Chronic cough (Prima ry Dx); Chest pain on breathing Start: 12-01-2023 Refill Jagjit Cheema MD Work Phone: [facility] [place] Comment on above: Refill Request Start: 11-29-2023 End: 11-29-2023 Patient encounter procedure Jagjit Cheema MD Work Phone: [facility] Comment on above: ADHD (attention defi cit hyperactivity disorder), combined type (Primary Dx); Need for vaccination Start: 10-25-2023 End: 10-25-2023 [facility] Jagjit Cheema MD Work Phone: [facility] Comment on above: ADHD (attention defi cit hyperactivity disorder), combined type (Primary Dx) Start: 10-20-2023 End: 10-20-[address] Jagjit Cheema Work Phone: [facility] Radiology Start: 10-18-2023 End: 10-18-[address] Jagjit Cheema Work Phone: [facility] Work Phone: Start: 10-18-2023 End: 10-18-[address] Jagjit Cheema Work Phone: [facility] Work Phone: Start: 10-16-2023 End: 10-16-[address] 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 Start: 07-19-2023 End: 07-19-2023 ambulatory JAGJIT CHEEMA Facility:[facility] Start: 07-13-2023 End: 07-13-[address] Jagjit Cheema Work Phone: [facility] Work Phone: Start: 07-13-2023 End: 07-13-[address] Jagjit Cheema Work Phone: [facility] Work Phone: Start: 07-05-2023 End: 07-05-2023 Admission to same day surgery center Dr. Jagjit Cheema Work Phone: [facility] Start: 07-05-2023 End: 07-05-[address] Jagjit Cheema Work Phone: [facility] [facility] Work Phone: Start: 06-30-2023 End: 04-23-2024 Telephone encounter Robby Bales MD Work Phone: General Surgery Comment on above: 07/19/2023 UMBILICAL HERNIA REPAIR BEAUTY Start: 06-08-2023 Refill Jagjit Cheema MD Work Phone: [facility] [place] Comment on above: Refill Request Start: 05-09-2023 End: 05-09-2023 ambulatory [facility] Work Phone: Start: 05-09-2023 End: 05-09-2023 Discharged Recurring [facility] Work Phone: Start: 04-27-2023 Registered Recurring [facility] Work Phone: Start: 04-25-2023 End: 04-25-2023 ambulatory [facility] Work Phone: Start: 04-25-2023 End: 04-25-2023 Patient encounter procedure [facility] Work Phone: Start: 04-03-2023 End: 04-03-2023 Subsequent hospital visit by physician Xr [facility] [place] Work Phone: Radiology Comment on above: Pain of left heel [M 79.672] Start: 01-23-2023 End: 01-23-2023 Patient encounter procedure Jagjit Cheema MD Work Phone: [facility] [place] Comment on above: Essential hypertensi on, benign (Primary Dx); Recurrent UTI (urinary tract infection); Adjustment disorder with anxious mood; Fatigue, unspecified type; Atrial flutter, unspecified type (HCC); 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 Start: 01-03-2023 ambulatory Jagjit Cheema MD Work Phone: [facility] [place] Comment on above: Therapist Start: 01-03-2023 Telephone encounter Vee Quintin gutierrez [facility] Work Phone: Psychology Comment on above: bh consult Start: 12-22-2022 Refill Sincere Rosales on PA-C Work Phone: [facility] [place] Comment on above: Refill Request Start: 12-19-2022 End: 12-19-2022 Patient encounter procedure Jagjit Cheema MD Work Phone: [facility] [facility] Comment on above: Urinary tract infect ion without hematuria, site unspecified (Primary Dx); Hypokalemia; Leukocytosis, unspecified type Start: 12-16-2022 Non-patient / Non-visit Dr. Catina Cheema Work Phone: [facility] In[facility] Phys[facility] Work Phone: Start: 12-15-2022 End: 12-16-2022 Evaluation and management of inpatient Dr. Jagjit [facility]ema [facility] Work Phone: Start: 12-15-2022 ambulatory Jagjit Cheema MD Work Phone: [facility] [place] Comment on above: ER F/U Start: 12-14-2022 End: 12-14-2022 Emergency department patient visit Dr. Jagjit Cheema Work Phone: [facility]-Emergency Department Work Phone: Start: 12-14-2022 End: 12-14-2022 Patient encounter procedure Jagjit Cheema MD Work Phone: [facility] Comment on above: Urinary tract infect ion with hematuria, site unspecified (Primary Dx); Fever, unspecified fever cause; Dehydration Start: 11-22-2022 ambulatory Kira Watt Work Phone: General Surgery Comment on above: Insurance Start: 11-07-2022 End: 11-07-[address] Jagjit Cheema Work Phone: [facility] Work Phone: Start: 10-25-2022 End: 10-25-2022 Patient encounter procedure Jagjit Cheema MD Work Phone: [facility] Comment on above: Essential hypertensi on, benign (Primary Dx); History of pulmonary embolism; 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; Atrial flutter, unspecified type (HCC); Adjustment disorder with anxious mood Start: 10-25-2022 Telephone encounter Jagjit Cheema MD Work Phone: [facility] Comment on above: Medication Problem Start: 10-21-[address] Pola Cheema Work Phone: [facility]-Physical Therapy Work Phone: Start: 09-23-2022 Telephone encounter [facility] Comment on above: Consult (Patient Out reach [facility]) Start: 09-22-2022 End: 09-22-2022 Patient encounter procedure Jagjit Cheema MD Work Phone: [facility] Comment on above: Bacterial sinusitis (Primary Dx); Adjustment disorder with anxious mood; Essential hypertension, benign; Other pulmonary embolism without acute cor pulmonale, unspecified chronicity (HCC); Hyperlipidemia, unspecified hyperlipidemia type; 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 Catina Cheema Work Phone: [facility] Start: 08-09-2022 End: 08-09-2022 Admission to same day surgery center Dr. Jagjit Cheema Work Phone: [facility]-Digital Forensics Investigator/Special Procedures Start: 08-09-2022 End: 08-09-[address] Jagjit Cheema Work Phone: [facility] Work Phone: Start: 08-08-2022 Non-patient / Non-visit Dr. Catina Cheema Work Phone: [facility] Start: 08-03-2022 End: 08-03-[address] Jagjit Cheema Work Phone: [facility] Start: 06-22-2022 Refill Jagjit Cheema MD Work Phone: [facility] Comment on above: Refill Request Start: 06-16-2022 End: 06-16-[address] Jagjit Cheema Work Phone: [facility] Work Phone: Start: 06-16-2022 End: 06-16-[address] Jagjit Cheema Work Phone: [facility]-Laboratory Start: 06-16-2022 End: 06-16-[address] Jagjit Cheema Work Phone: [facility] Start: 05-18-2022 Non-patient / Non-visit [facility] Start: 05-18-2022 End: 05-18-[address] Jagjit Cheema Work Phone: [facility] Work Phone: Start: 05-18-2022 End: 05-18-[address] Jagjit Cheema Work Phone: [facility]-Cardiovascul ar Services Start: 05-09-2022 End: 05-09-[address] Jagjit Cheema Work Phone: [facility]-Pulmonary Services/Neurology Start: 05-07-2022 End: 05-07-2022 Emergency department patient visit Dr. Jagjit Cheema Work Phone: [facility]-Emergency Department Start: 04-29-2022 End: 04-29-[address] Jagjit Cheema Work Phone: [facility]-Laboratory Start: 04-29-2022 End: 04-29-[address] Jagjit Cheema Work Phone: [facility] Start: 04-25-2022 End: 04-25-[address] Jagjit Cheema Work Phone: [facility] Work Phone: Start: 04-25-2022 End: 04-25-2022 [facility] Start: 04-21-2022 Chart abstracting Jagjit Becker MD Work Phone: [facility] Start: 04-20-2022 End: 04-20-2022 ambulatory [facility] Work Phone: Start: 04-20-2022 End: 04-20-2022 [facility] Start: 03-12-2022 Refill Jagjit Cheema MD Work Phone: [facility] Comment on above: Refill Request Start: 02-22-2022 Nafisa Rosales on PA-C Work Phone: [facility] Comment on above: Refill Request Start: 02-12-2022 End: 02-12-2022 Emergency department patient visit Dr. Jagjit Cheema Work Phone: [facility]-Emergency Department Start: 02-12-2022 End: 02-12-2022 Patient encounter procedure Carolann Lucas COMFORT.LEASING ASSISTANT Work Phone: [facility] Comment on above: Facial pain (Primary Dx); Right ear pain; Acute right eye pain Start: 12-16-2021 ambulatory Jagjit Cheema MD Work Phone: [facility] Comment on above: Hello Doc Start: 12-07-2021 Telephone encounter Jagjit Cheema MD Work Phone: [facility] Comment on above: ear problems/sinuses Start: 11-29-2021 Telephone encounter Jagjit Cheema MD Work Phone: [facility] Comment on above: Results Patient Update Start: 11-29-2021 End: 11-29-[address] Jagjit Cheema Work Phone: [facility]-Laboratory, Specimen Start: 11-29-2021 End: 11-29-2021 Subsequent hospital visit by physician [facility] Work Phone: Radiology Comment on above: Other pulmonary embo lism without acute cor pulmonale, unspecified chronicity (HCC) [I26.99] Start: 11-28-2021 ambulatory Jagjit Cheema MD Work Phone: [facility] Comment on above: Covid issues Start: 11-23-2021 End: 11-23-[address] Jagjit Cheema Work Phone: [facility] Start: 11-13-2021 ambulatory Jagjit Cheema MD Work Phone: [facility] Comment on above: Prescription ran out Start: 10-20-2021 End: 10-20-[address] Jagjit Cheema Work Phone: [facility]-Laboratory Start: 10-20-2021 End: 10-20-[address] Jagjit Cheema Work Phone: [facility] Start: 10-14-2021 End: 10-14-2021 Patient encounter procedure Kisha Wen APRN.CNP Work Phone: [facility] Comment on above: Feeling light headed (Primary Dx) Start: 09-30-2021 End: 09-30-[address] Jagjit Cheema Work Phone: [facility] Start: 09-10-2021 End: 09-10-2021 Patient encounter procedure Oliva Gutierrez PA-C Work Phone: Orthopaedics Comment on above: Pes planus of both f eet (Primary Dx); Acquired valgus deformity of right ankle; Primary osteoarthritis of right ankle Start: 09-10-2021 End: 09-10-2021 Subsequent hospital visit by physician [facility] Work Phone: Radiology Comment on above: Pain [R52] Start: 09-05-2020 Patient encounter procedure Abraham Rosa MD Work Phone: [facility] Start: 09-05-2020 Progress Note Abraham walter MD Work Phone: [facility] Start: 04-28-2020 End: 04-28-2020 Subsequent hospital visit by physician [facility] Work Phone: Radiology Comment on above: Pain of right heel [ M79.671] Start: 03-19-2020 Patient encounter procedure Eyal Montoya DO Work Phone: [facility] Start: 03-19-2020 Progress Note Eyal Bagley Work Phone: [facility] Start: 10-30-2017 End: 10-30-2017 Emergency department patient visit JAGJIT SOUZA [facility] Procedures Date Procedure Procedure Detail Performing [...] exam ches t 2 views Susan Kerr PARK KEEPER.LEASING ASSISTANT Work Phone: Start: 10-28-2024 Computed tomography of [...] exam ches t 2 views Lisa Javed PARK KEEPER.LEASING ASSISTANT Work Phone: Start: 03-08-2024 Ct abdomen & [...] foot complete minimum 3 views Anabelle Tom PARK KEEPER.LEASING ASSISTANT Work Phone: Start: 12-15-2022 Plain chest X-ray Dr. Chito Cheema Work Phone: Start: 12-15-2022 Nucleic acid [...] Work Phone: Start: 01-24-2019 Colonoscopy Kisha Wen APRN.LEASING ASSISTANT Work Phone: Start: 05-22-2018 Adult depression scr [...] Follow Up Appt 3 months Lorena Cruz CREATIVE ASSISTANT Work Phone: Start: 08-17-2016 End: 08-17-2016 MMM Lorena Cruz CREATIVE ASSISTANT Work Phone: Start: 01-04-2016 End: 01-04-2016 Dietary [...] Work Phone: Start: 03-31-2015 End: 03-31-2015 PFM Dayna Alvarez PA-C Work Phone: Start: 03-31-2015 End: [...] Author Start: 09-17-2029 Lipid panel Lipid Screening [facility] Start: 09-05-2028 Lipid panel Lipid Screening [facility] Start: 12-02-2027 Colonoscopy COLONOSCOPY [facility] Start: 12-02-2027 COLORECTAL CANCER SCREENING COLORECTAL CANCER SCREENING [facility] Start: 12-02-2027 Screening for malignant neoplasm of colon [facility] Start: 09-27-2027 Lipid panel Lipid Screening [facility] Start: 09-27-2027 LIPID SCREEN LIPID SCREEN [facility] Start: 09-18-2027 Diabetes Screening Diabetes Screening [facility] Start: 07-08-2027 Diabetes Screening Diabetes Screening [facility] Start: 06-24-2027 Diabetes Screening Diabetes Screening [facility] Start: 04-25-2027 Diabetes Screening Diabetes Screening [facility] Start: 04-20-2027 LIPID SCREEN LIPID SCREEN [facility] Start: 03-08-2027 Diabetes Screening Diabetes Screening [facility] Start: 12-19-2026 Diabetes Screening Diabetes Screening [facility] Start: 12-12-2026 Diabetes Screening Diabetes Screening [facility] Start: 09-05-2026 Diabetes Screening Diabetes Screening [facility] Start: 02-08-2026 Diabetes Screening Diabetes Screening [facility] Start: 12-29-2025 DIABETES SCREEN DIABETES SCREEN [facility] Start: 12-24-2025 Annual PCP Team Chronic Disease Visit Annual PCP Team Chronic Disease Visit [facility] Start: 12-19-2025 DIABETES SCREEN DIABETES SCREEN [facility] Start: 11-18-2025 Annual PCP Team Chronic Disease Visit Annual PCP Team Chronic Disease Visit [facility] Start: 10-22-2025 PROSTATE CANCER SCREENING DISCUSSION PROSTATE CANCER SCREENING DISCUSSION [facility] Start: 10-22-2025 Prostate specific antigen measurement Prostate Cancer Screening Discussion [facility] Start: 10-21-2025 Annual PCP Team Chronic Disease Visit Annual PCP Team Chronic Disease Visit [facility] Start: 09-26-2025 DIABETES SCREEN DIABETES SCREEN [facility] Start: 09-23-2025 Annual PCP Team Chronic Disease Visit Annual PCP Team Chronic Disease Visit [facility] Start: 09-17-2025 Hepatitis B surface antibody level LDL Cholesterol [facility] Start: 09-11-2025 Annual PCP Team Chronic Disease Visit Annual PCP Team Chronic Disease Visit [facility] Start: 09-11-2025 RSV Vaccine (1 - Risk 60-74 years 1-dose series) RSV Vaccine (1 - Risk 60-74 years 1-dose series) [facility] Comment on above: Postponed from 2017 (Declined at t his time) Start: 07-08-2025 Annual PCP Team Chronic Disease Visit Annual PCP Team Chronic Disease Visit [facility] Start: 06-24-2025 Annual PCP Team Chronic Disease Visit Annual PCP Team Chronic Disease Visit [facility] Start: 06-17-2025 Annual PCP Team Chronic Disease Visit Annual PCP Team Chronic Disease Visit [facility] Start: 04-25-2025 Annual PCP Team Chronic Disease Visit Annual PCP Team Chronic Disease Visit [facility] Start: 04-10-2025 Annual PCP Team Chronic Disease Visit Annual PCP Team Chronic Disease Visit [facility] Start: 03-28-2025 End: 03-28-2025 Patient encounter procedure 03/28/2025 8:00 AM EDT Office Visit Family [facility] [address] [place] [id number] Jagjit Cheema MD [address] [facility] [place] [place] [id number] Medicare Wellness [facility] [place] Comment on above: Medicare Wellness Start: 03-27-2025 End: 03-27-2025 Patient encounter procedure 03/27/2025 8:00 AM EDT Appointment [facility] [address] [place] [address] Jaimie Bennett MD [address] [place] [id number] Rectal bleeding [K62.5] [facility] Comment on above: Rectal bleeding [K62.5] Start: 03-13-2025 Annual PCP Team Chronic Disease Visit Annual PCP Team Chronic Disease Visit [facility] Start: 03-10-2025 End: 03-10-2025 Patient encounter procedure 03/10/2025 9:00 AM EDT Office Visit Family Breonna [facility] [address] [place] [address] Jagjit Cheema MD [address] [facility] [place] [place] [id number] 8 week follow up [facility] Comment on above: 8 week follow up Start: 03-08-2025 Annual PCP Team Chronic Disease Visit Annual PCP Team Chronic Disease Visit [facility] Start: 03-08-2025 Covid-19 Vaccine () Covid-19 Vaccine () [facility] Comment on above: Postponed from 02/18/2024 (Declined at t his time) Start: 03-08-2025 Covid-19 Vaccine () Covid-19 Vaccine () [facility] Comment on above: Postponed from 02/18/2024 (Declined at t his time) Start: 02-17-2025 Influenza vaccination [facility] Start: 01-14-2025 End: 01-14-2025 Patient encounter procedure 01/14/2025 1:45 PM EDT Appointment Ambulatory Surgery [address] [place] [address] Richi Whitney MD [address] [place] [address] Rectal bleeding [K62.5] Ambulatory Surgery Comment on above: Rectal bleeding [K62.5] Start: 01-02-2025 End: 01-02-2025 Anesthesia consultation 01/02/2025 11:59 PM EDT Anesthesia Event Ambulatory Surgery [address] [place] [address] Kell Sanon, PARK KEEPER.MONOGRAM OPERATOR [address] [place] [address] Ambulatory Surgery Start: 12-31-2024 End: 12-31-2024 Patient encounter procedure General Surgery Comment on above: Rectal bleeding [K62.5]-Colonoscopy CONSULT: Rectal blee ding-Colonoscopy. Last 12/01/22 ([address] Deni watkins [facility] Start: 12-28-2024 Annual PCP Team Chronic Disease Visit Annual PCP Team Chronic Disease Visit [facility] Start: 12-28-2024 Anxiety Screening Anxiety Screening [facility] Start: 12-28-2024 Covid-19 Vaccine ( season) Covid-19 Vaccine ( season) [facility] Comment on above: Postponed from 11/24/2023 (Declined at t his time) Start: 12-28-2024 Depression Screening Depression Screening [facility] Start: 12-24-2024 End: 12-24-2024 Patient encounter procedure 12/24/2024 2:00 PM EDT Office Visit Family Medicine [facility] [address] [place] [address] Jagjit Cheema MD [address] [address] 8 week follow up [facility] Comment on above: 8 week follow up Start: 12-22-2024 LIPID SCREEN LIPID SCREEN [facility] Start: 12-16-2024 Influenza [facility] Comment on above: Postponed from 02/18/2024 (Declined at t his time) Start: 12-12-2024 Annual PCP Team Chronic Disease Visit Annual PCP Team Chronic Disease Visit [facility] Start: 11-28-2024 Annual PCP Team Chronic Disease Visit Annual PCP Team Chronic Disease Visit [facility] Start: 11-28-2024 Patient referral [facility] Work Phone: Start: 11-28-2024 Shingrix Vaccine (1 of 2) Shingrix Vaccine (1 of 2) [facility] Comment on above: Postponed from 09/22/2007 (Declined at t his time) Start: 11-28-2024 Urine microalbumin profile DTaP,Tdap,Td Vaccine (1 - Tdap) [facility] Comment on above: Postponed from 1976 (Declined at t his time) Start: 11-20-2024 [facility] Start: 11-20-2024 End: 11-20-2024 [facility] Start: 10-28-2024 [facility] Start: 10-24-2024 Annual PCP Team Chronic Disease Visit Annual PCP Team Chronic Disease Visit [facility] Start: 10-21-2024 End: 10-21-2024 Patient encounter procedure 10/21/2024 9:00 AM EDT Office Visit Family [facility] [address] [place] [address] Jagjit Cheema MD [address] [place] [id number] 1 mo follow up Family [facility] Comment on above: 1 mo follow up Start: 10-18-2024 End: 01-17-2025 Platelets [#/volume] in Blood PLATELET COUNT Lab Routine Thrombocytopenia Expected: 10/18/2024, Expires: 01/17/2025 [facility] Work Phone: Comment on above: Expected: 10/18/2024, Expires: Start: 10-18-2024 End: 10-18-2024 ambulatory 10/18/2024 7:30 AM EDT Results Only [facility] [address] [place] [address] [facility] Start: 10-14-2024 DIABETES SCREEN DIABETES SCREEN [facility] Start: 10-14-2024 End: 10-14-2024 Patient encounter procedure 10/14/2024 7:40 AM EDT Office Visit [facility] [place] [address] [place] [address] Susan Kerr APRN.LEASING ASSISTANT [address] [place] [address] 1 month BP check [facility]onna [place] Comment on above: 1 month BP check Start: 09-23-2024 End: 09-23-2024 Patient encounter procedure 09/23/2024 9:40 AM EDT Office Visit [facility] [place] [address] [place] [address] Jagjit Cheema MD [address] [place] [id number] Switch meds. See TE 09/19/24. Family [facility] Comment on above: Switch meds. See TE 09/19/24. Start: 09-11-2024 End: 12-11-2024 CBC W Auto Differential panel - Blood COMPLETE BLOOD COUNT AND DIFFERENTIAL Lab Routine Fatigue, unspecified type Expected: 09/11/2024, Expires: 12/11/2024 [facility] Comment on above: Expected: 09/11/2024, Expires: Start: 09-11-2024 End: 12-11-2024 Comprehensive metabolic 2000 panel - Serum or Plasma COMPREHENSIVE METABOLIC PANEL Lab Routine Fatigue, unspecified type Expected: 09/11/2024, Expires: 12/11/2024 [facility] Comment on above: Expected: 09/11/2024, Expires: Start: 09-11-2024 End: 12-11-2024 Erythrocyte sedimentation rate SEDIMENTATION RATE, WESTERGREN Lab Routine Fatigue, unspecified type Expected: 09/11/2024, Expires: 12/11/2024 [facility] Comment on above: Expected: 09/11/2024, Expires: Start: 09-11-2024 End: 12-11-2024 Lipid 1996 panel - Serum or Plasma LIPID PANEL, FASTING Lab Routine Hyperlipidemia, unspecified hyperlipidemia type Expected: 09/11/2024, Expires: 12/11/2024 [facility] Comment on above: Expected: 09/11/2024, Expires: Start: 09-11-2024 End: 12-11-2024 T4/FTI/T4U T4/FTI/T4U Lab Routine Fatigue, unspecified type Expected: 09/11/2024, Expires: 12/11/2024 [facility] Comment on above: Expected: 09/11/2024, Expires: Start: 09-11-2024 End: 12-11-2024 Thyrotropin [Units/volume] in Serum or Plasma THYROID STIMULATING HORMONE Lab Routine Fatigue, unspecified type Expected: 09/11/2024, Expires: 12/11/2024 [facility] Work Phone: Comment on above: Expected: 09/11/2024, Expires: Start: 09-11-2024 End: 09-11-2024 Patient encounter procedure [facility] Comment on above: 6 month follow up 6 month follow up/re view for c-pap supplies Start: 03-20-2025 Hepatitis B surface antibody level LDL Cholesterol [facility] Start: 09-04-2024 Annual PCP Team Chronic Disease Visit Annual PCP Team Chronic Disease Visit [facility] Start: 07-26-2024 Annual PCP Team Chronic Disease Visit Annual PCP Team Chronic Disease Visit [facility] Start: 07-26-2024 RSV Vaccine (1 - 1-dose 60+ series) RSV Vaccine (1 - 1-dose 60+ series) [facility] Comment on above: Postponed from 2017 (Declined at t his time) Start: 07-26-2024 RSV Vaccine (1 - Risk 60-74 years 1-dose series) RSV Vaccine (1 - Risk 60-74 years 1-dose series) [facility] Comment on above: Postponed from 2017 (Declined at t his time) Start: 07-09-2024 End: 10-08-2024 Hemoglobin A1c in Blood HEMOGLOBIN A1C Lab Routine Hyperglycemia Hypokalemia Expected: 07/09/2024, Expires: 10/08/2024 [facility] Comment on above: Expected: 07/09/2024, Expires: Start: 07-09-2024 End: 10-08-2024 Potassium [Moles/volume] in Serum or Plasma POTASSIUM Lab Routine Hyperglycemia Hypokalemia Expected: 07/09/2024, Expires: 10/08/2024 [facility] Work Phone: Comment on above: Expected: 07/09/2024, Expires: Start: 07-08-2024 End: 07-08-2024 Patient encounter procedure 07/08/2024 9:00 AM EST Office Visit Family [facility] [address] [place] [address] Jagjit Cheema MD [address] [place] [id number] pneumonia follow up [facility] [place] Comment on above: pneumonia follow up Start: 06-24-2024 End: 09-23-2024 Basic metabolic 2000 panel - Serum or Plasma [facility] Comment on above: Expected: 06/24/2024, Expires: Start: 06-24-2024 End: 09-23-2024 CBC W Auto Differential panel - Blood [facility] Comment on above: Expected: 06/24/2024, Expires: Start: 06-24-2024 End: 06-24-2024 Patient encounter procedure 06/24/2024 9:00 AM EST Office Visit Family Medicine [place] [address] [place] [id number] Jagjit Cheema MD [address] [place] [id number] recheck pneumonia [facility] Comment on above: recheck pneumonia Start: 06-19-2024 Advance Directive Discussion Advance Directive Discussion [facility] Start: 06-18-2024 Advance Directive Discussion Advance Directive Discussion [facility] Comment on above: Postponed from 06/19/2023 (Declined at t his time) Start: 06-04-2024 DIABETES SCREEN DIABETES SCREEN [facility] Start: 04-26-2024 End: 07-26-2024 Hemoglobin A1c in Blood [facility] Work Phone: Comment on above: Expected: 04/26/2024, Expires: Start: 04-25-2024 End: 07-25-2024 Comprehensive metabolic 2000 panel - Serum or Plasma [facility] Work Phone: Comment on above: Expected: 04/25/2024, Expires: Start: 04-03-2024 BP Controlled (<130/80) BP Controlled (<130/80) [facility] Start: 03-13-2024 End: 03-13-2024 Patient encounter procedure 03/13/2024 9:00 AM EDT Office Visit Family Breonna Styles [address] [place] [id number] Jagjit Cheema MD [address] [place], [place] [id number] follow up Family Breonna Styles Comment on above: follow up Start: 03-08-2024 Subsequent hospital visit by physician 03/08/2024 2:56 PM EDT Hospital Encounter [facility] [address] [place] [address] Left lower quadrant abdominal pain [R10.32] [facility] Comment on above: Left lower quadrant abdominal pain [R10. 32] Start: 03-08-2024 End: 06-07-2024 Bacteria identified in Urine by Culture URINE CULTURE Microbiology Routine Chronic RLQ pain Left lower quadrant abdominal pain Expected: 03/08/2024, Expires: 06/07/2024 [facility] Comment on above: Expected: 03/08/2024, Expires: Start: 03-08-2024 End: 06-07-2024 Comprehensive metabolic 2000 panel - Serum or Plasma [facility] Work Phone: Comment on above: Expected: 03/08/2024, Expires: Start: 03-08-2024 End: 06-07-2024 Urinalysis complete panel - Urine URINALYSIS, WITH MICROSCOPIC Lab Routine Chronic RLQ pain Left lower quadrant abdominal pain Expected: 03/08/2024, Expires: 06/07/2024 [facility] Comment on above: Expected: 03/08/2024, Expires: Start: 03-08-2024 End: 03-08-2024 Patient encounter procedure 03/08/2024 9:40 AM EDT Office Visit Family Breonna Styles [address] [place] [address] Jagjit Cheema MD [address] [place], [place] [id number] 6 month follow up [facility] Breonna Styles Comment on above: 6 month follow up Start: 02-18-2024 Covid-19 Vaccine ( season) Covid-19 Vaccine () [facility] Start: 02-18-2024 Influenza vaccination Influenza Vaccine (#1) [facility] Start: 01-26-2024 End: 01-26-2024 Patient encounter procedure 01/26/2024 8:00 AM EDT Office Visit [facility] Breonna Styles [address] [facility] [place], [place] [id number] Susan Kerr, COMFORT.LEASING ASSISTANT [address] [place] [address] 4 week follow up bronchitis/fatigue. possibly adjusting strattera depending. [facility] Comment on above: 4 week follow up bronchitis/fatigue. pos sibly adjusting strattera depending. Start: 01-24-2024 ANNUAL PCP TEAM CHRONIC DISEASE VISIT ANNUAL PCP TEAM CHRONIC DISEASE VISIT [facility] Start: 12-22-2023 End: 12-22-2023 Patient encounter procedure 12/22/2023 9:40 AM EDT Office Visit Family Breonna Styles [address] [place] [address] Jagjit Cheema MD [address] [place] [address] ADD Medication advice Family Breonna Styles Comment on above: ADD Medication advice Start: 12-20-2023 ANNUAL PCP TEAM CHRONIC DISEASE VISIT ANNUAL PCP TEAM CHRONIC DISEASE VISIT [facility] Start: 12-20-2023 End: 12-20-2023 ambulatory 12/20/2023 8:00 AM EDT Results Only [facility] [address] [place] [address] [place] [facility] Start: 12-15-2023 ANNUAL PCP TEAM CHRONIC DISEASE VISIT ANNUAL PCP TEAM CHRONIC DISEASE VISIT [facility] Start: 12-13-2023 End: 03-13-2024 Basic metabolic 2000 panel - Serum or Plasma BASIC METABOLIC PANEL Lab Routine Hypokalemia Expected: 12/13/2023, Expires: 03/13/2024 [facility] Comment on above: Expected: 12/13/2023, Expires: Start: 11-24-2023 Covid-19 Vaccine () Covid-19 Vaccine () [facility] Start: 10-26-2023 ANNUAL PCP TEAM CHRONIC DISEASE VISIT ANNUAL PCP TEAM CHRONIC DISEASE VISIT [facility] Start: 09-27-2023 Hepatitis B surface antibody level LDL CHOLESTEROL [facility] Start: 09-23-2023 ANNUAL PCP TEAM CHRONIC DISEASE VISIT ANNUAL PCP TEAM CHRONIC DISEASE VISIT [facility] Start: 09-23-2023 COVID-19 VACCINE (4 - Booster for Pfizer series) COVID-19 VACCINE (4 - Booster for Pfizer series) [facility] Comment on above: Postponed from 06/28/2021 (Declined at t his time) Start: 09-23-2023 COVID-19 VACCINE (4 - Pfizer series) COVID-19 VACCINE (4 - Pfizer series) [facility] Comment on above: Postponed from 06/28/2021 (Declined at t his time) Start: 09-23-2023 SHINGRIX VACCINE (1 of 2) SHINGRIX VACCINE (1 of 2) [facility] Comment on above: Postponed from 09/22/2007 (Declined at t his time) Start: 09-23-2023 Urine microalbumin profile [facility] Comment on above: Postponed from 1976 (Declined at t his time) Start: 09-22-2023 Pneumococcal Vaccine: 65+ (2 of 2 - PCV) Pneumococcal Vaccine: 65+ (2 of 2 - PCV) [facility] Comment on above: Postponed from 04/19/2013 (Postponed To Appropriate Date) Postponed from 09/21 (Postponed To Appropriate Date) Start: 09-22-2023 PNEUMOCOCCAL: 65+ (2 - PCV) PNEUMOCOCCAL: 65+ (2 - PCV) [facility] Comment on above: Postponed from 04/19/2013 (Postponed To Appropriate Date) Start: 09-07-2023 End: 12-07-2023 Hemoglobin A1c in Blood HGB A1C Lab Routine Hyperglycemia Expected: 09/07/2023, Expires: 12/07/2023 [facility] Work Phone: Comment on above: Expected: 09/07/2023, Expires: 4 Start: 09-05-2023 End: 12-05-2023 CBC W Auto Differential panel - Blood CBC + DIFF Lab Routine Fatigue, unspecified type Expected: 09/05/2023, Expires: 12/05/2023 [facility] Work Phone: Comment on above: Expected: 09/05/2023, Expires: 4 Start: 09-05-2023 End: 12-05-2023 Comprehensive metabolic 2000 panel - Serum or Plasma COMP METABOLIC PANEL Lab Routine Fatigue, unspecified type Expected: 09/05/2023, Expires: 12/05/2023 [facility] Work Phone: Comment on above: Expected: 09/05/2023, Expires: 4 Start: 09-05-2023 End: 12-05-2023 Lipid 1996 panel - Serum or Plasma LIPID PANEL BASIC Lab Routine Hyperlipidemia, unspecified hyperlipidemia type Expected: 09/05/2023, Expires: 12/05/2023 [facility] Work Phone: Comment on above: Expected: 09/05/2023, Expires: 4 Start: 09-05-2023 End: 12-05-2023 Testosterone [Mass/volume] in Serum or Plasma TESTOSTERONE TOTAL Lab Routine Testosterone deficiency Fatigue, unspecified type Expected: 09/05/2023, Expires: 12/05/2023 [facility] Work Phone: Comment on above: Expected: 09/05/2023, Expires: 4 Start: 09-05-2023 End: 12-05-2023 Thyrotropin [Units/volume] in Serum or Plasma TSH BLD Lab Routine Acute constipation Expected: 09/05/2023, Expires: 12/05/2023 [facility] Work Phone: Comment on above: Expected: 09/05/2023, Expires: 4 Start: 06-19-2023 Behavioral Health Screening Behavioral Health Screening [facility] Start: 04-20-2023 Hepatitis B surface antibody level LDL CHOLESTEROL [facility] Start: 02-17-2023 Covid-19 Vaccine () Covid-19 Vaccine () [facility] Start: 02-17-2023 Influenza vaccination [facility] Start: 01-23-2023 End: 03-25-2023 ALBUMIN/CREAT RATIO RND UR ALBUMIN/CREAT RATIO RND UR Lab Routine Recurrent UTI (urinary tract infection) Expected: 01/23/2023, Expires: 03/25/2023 [facility] Work Phone: Comment on above: Expected: 01/23/2023, Expires: 3 Start: 01-23-2023 End: 03-25-2023 Basic metabolic 2000 panel - Serum or Plasma BASIC METABOLIC PNL Lab Routine Essential hypertension, benign Expected: 01/23/2023, Expires: 03/25/2023 [facility] Work Phone: Comment on above: Expected: 01/23/2023, Expires: Start: 01-23-2023 End: 03-25-2023 Thyrotropin [Units/volume] in Serum or Plasma TSH BLD Lab Routine Fatigue, unspecified type Expected: 01/23/2023, Expires: 03/25/2023 [facility] Work Phone: Comment on above: Expected: 01/23/2023, Expires: Start: 01-23-2023 End: 03-25-2023 Urinalysis complete panel - Urine URINALYSIS, WITH MICROSCOPIC Lab Routine Recurrent UTI (urinary tract infection) Expected: 01/23/2023, Expires: 03/25/2023 [facility] Work Phone: Comment on above: Expected: 01/23/2023, Expires: Start: 12-19-2022 End: 02-18-2023 Basic metabolic 2000 panel - Serum or Plasma [facility] Work Phone: Comment on above: Expected: 12/19/2022, Expires: Start: 12-16-2022 Patient discharge [facility] Start: 12-15-2022 Following clinical pathway protocol [facility] Start: 12-15-2022 Assessment of risk of venous thromboembolism [facility] Start: 12-15-2022 Continuous positive airway pressure ventilation treatment [facility] Start: 12-15-2022 Fall prevention [facility] Start: 12-15-2022 Incentive spirometry [facility] Start: 12-15-2022 Inhalation therapy procedure [facility] Start: 12-15-2022 Insertion of catheter into peripheral vein [facility] Start: 12-15-2022 Introduction of urinary catheter [facility] Start: 12-15-2022 Measuring intake and output [facility] Start: 12-15-2022 Oxygen therapy [facility] Start: 12-15-2022 Providing care according to standard [facility] Start: 12-15-2022 Provision of activity privileges [facility] Start: 12-15-2022 Referral to service [facility] Start: 12-15-2022 [facility] Start: 12-15-2022 Verification routine [facility] Start: 12-15-2022 Admission procedure [facility] Start: 12-15-2022 Respiratory Panel (PCR) Respiratory Panel (PCR) [facility] Start: 12-15-2022 Consultation [facility] Start: 12-15-2022 Patient referral to dietitian [facility] Start: 12-14-2022 End: 12-14-2022 Blood culture [facility] Start: 12-14-2022 End: 12-14-2022 [facility] Start: 12-14-2022 Bacteria identified in Blood by Culture Blood Culture [facility] Start: 12-14-2022 Urine culture Urine Culture [facility] Start: 11-29-2022 ANNUAL PCP TEAM CHRONIC DISEASE VISIT ANNUAL PCP TEAM CHRONIC DISEASE VISIT [facility] Start: 09-22-2022 End: 11-22-2022 25-hydroxyvitamin D3 [Mass/volume] in Serum or Plasma VITAMIN D 25 HYDROXY Lab Routine Hyperlipidemia, unspecified hyperlipidemia type 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 Myalgia Disorder of bone, unspecified Expected: 09/22/2022, Expires: 11/22/2022 [facility] Work Phone: Comment on above: Expected: 09/22/2022, Expires: 3 Start: 09-22-2022 End: 11-22-2022 C reactive protein [Mass/volume] in Serum or Plasma C-REACTIVE PROTEIN (CRP) Lab Routine Myalgia Expected: 09/22/2022, Expires: 11/22/2022 [facility] Work Phone: Comment on above: Expected: 09/22/2022, Expires: 3 Start: 09-22-2022 End: 11-22-2022 CBC W Auto Differential panel - Blood CBC + DIFF Lab Routine Essential hypertension, benign Expected: 09/22/2022, Expires: 11/22/2022 [facility] Work Phone: Comment on above: Expected: 09/22/2022, Expires: 3 Start: 09-22-2022 End: 11-22-2022 Comprehensive metabolic 2000 panel - Serum or Plasma COMP METABOLIC PANEL Lab Routine Essential hypertension, benign Expected: 09/22/2022, Expires: 11/22/2022 [facility] Work Phone: Comment on above: Expected: 09/22/2022, Expires: 3 Start: 09-22-2022 End: 11-22-2022 Creatine kinase [Enzymatic activity/volume] in Serum or Plasma CK CREATINE KINASE Lab Routine Essential hypertension, benign Expected: 09/22/2022, Expires: 11/22/2022 [facility] Work Phone: Comment on above: Expected: 09/22/2022, Expires: 3 Start: 09-22-2022 End: 11-22-2022 Erythrocyte sedimentation rate SED RATE WESTERGREN Lab Routine Myalgia Expected: 09/22/2022, Expires: 11/22/2022 [facility] Work Phone: Comment on above: Expected: 09/22/2022, Expires: 3 Start: 09-22-2022 End: 11-22-2022 Lipid 1996 panel - Serum or Plasma LIPID PANEL BASIC Lab Routine Hyperlipidemia, unspecified hyperlipidemia type Expected: 09/22/2022, Expires: 11/22/2022 [facility] Work Phone: Comment on above: Expected: 09/22/2022, Expires: 3 Start: 2022 Pneumococcal Vaccine: 65+ (2 of 2 - PCV) Pneumococcal Vaccine: 65+ (2 of 2 - PCV) [facility] Start: 07-26-2022 ANNUAL PCP TEAM CHRONIC DISEASE VISIT ANNUAL PCP TEAM CHRONIC DISEASE VISIT [facility] Start: 06-19-2022 DEPRESSION ASSESSMENT DEPRESSION ASSESSMENT [facility] Start: 05-07-2022 [facility] Start: 04-19-2022 Medicare Annual Wellness Visit Medicare Annual Wellness Visit [facility] Start: 02-17-2022 Influenza vaccination [facility] Start: 01-28-2022 Colonoscopy COLONOSCOPY [facility] Start: 01-28-2022 COLORECTAL CANCER SCREENING COLORECTAL CANCER SCREENING [facility] Start: 01-24-2022 Colonoscopy COLONOSCOPY [facility] Start: 01-24-2022 COLORECTAL CANCER SCREENING COLORECTAL CANCER SCREENING [facility] Start: 10-14-2021 End: 12-14-2021 CBC panel - Blood by Automated count [facility] Work Phone: Comment on above: Expected: 10/14/2021, Expires: 2 Start: 10-14-2021 End: 12-14-2021 Comprehensive metabolic 2000 panel - Serum or Plasma [facility] Work Phone: Comment on above: Expected: 10/14/2021, Expires: 2 Start: 10-14-2021 End: 12-14-2021 Thyrotropin [Units/volume] in Serum or Plasma [facility] Work Phone: Comment on above: Expected: 10/14/2021, Expires: 2 Start: 10-14-2021 End: 12-14-2021 VITAMIN D 25 HYDROXY [facility] Work Phone: Comment on above: Expected: 10/14/2021, Expires: 2 Start: 08-31-2021 COVID-19 VACCINE (4 - Booster for Pfizer series) COVID-19 VACCINE (4 - Booster for Pfizer series) [facility] Start: 06-28-2021 COVID-19 VACCINE (4 - Booster for Pfizer series) COVID-19 VACCINE (4 - Booster for Pfizer series) [facility] Start: 06-19-2021 DEPRESSION ASSESSMENT DEPRESSION ASSESSMENT [facility] Start: 02-17-2021 Influenza vaccination INFLUENZA (#1) [facility] Start: 12-22-2020 Hepatitis B surface antibody level LDL CHOLESTEROL [facility] Start: 10-26-2019 FECAL OCCULT BLOOD FECAL OCCULT BLOOD [facility] Start: 10-26-2019 Screening for malignant neoplasm of colon Fecal Occult Blood [facility] Start: 05-22-2019 Adult depression screening assessment DEPRESSION SCREENING [facility] Start: 2017 RSV Vaccine (1 - 1-dose 60+ series) RSV Vaccine (1 - 1-dose 60+ series) [facility] Start: 2017 RSV Vaccine (1 - Risk 60-74 years 1-dose series) RSV Vaccine (1 - Risk 60-74 years 1-dose series) [facility] Start: 06-13-2017 End: 06-13-2017 Appointment Appointment [facility] Work Phone: Start: 12-16-2016 End: 06-01-2017 *Hepatic Function Panel *Hepatic Function Panel [facility] Work Phone: Start: 12-16-2016 End: 06-01-2017 Lipid panel [AGGREGATE] *Lipid Profile CC PCP [facility] Work Phone: Start: 12-14-2016 End: 12-14-2016 Follow Up Appt 6 months Follow Up Appt 6 months [facility] Work Phone: Start: 12-14-2016 End: 06-01-2017 Follow Up Appt Other Follow Up Appt Other [facility] Work Phone: Start: 12-14-2016 End: 12-14-2016 MMM MMM [facility] Work Phone: Start: 08-17-2016 End: 08-17-2016 Follow Up Appt 3 months Follow Up Appt 3 months [facility] Work Phone: Start: 08-17-2016 End: 08-17-2016 MMM MMM [facility] Work Phone: Start: 01-04-2016 End: 01-04-2016 Ct thorax w/dye CT Chest with Contrast [facility] Work Phone: Start: 01-04-2016 End: 01-04-2016 Echocardiography Echocardiogram (complete) [facility] Work Phone: Start: 01-04-2016 End: 01-04-2016 Electrocardiogram, complete EKG (In office) [facility] Work Phone: Start: 01-04-2016 End: 01-04-2016 Follow Up Appt Other Follow Up Appt Other [facility] Work Phone: Start: 01-04-2016 End: 01-04-2016 Nuclear stress test -exercise Nuclear stress test -exercise [facility] Work Phone: Start: 10-19-2015 End: 11-22-2016 *Hepatic Function Panel *Hepatic Function Panel [facility] Work Phone: Start: 10-19-2015 End: 11-22-2016 Lipid panel [AGGREGATE] *Lipid Profile CC PCP [facility] Work Phone: Start: 04-24-2015 End: 04-20-2015 *Hepatic Function Panel *Hepatic Function Panel [facility] Work Phone: Start: 04-24-2015 End: 04-20-2015 Lipid panel [AGGREGATE] *Lipid Profile CC PCP [facility] Work Phone: Start: 03-31-2015 End: 04-20-2015 *Hepatic Function Panel *Hepatic Function Panel [facility] Work Phone: Start: 03-31-2015 End: 03-31-2015 Follow Up Appt 6 months Follow Up Appt 6 months [facility] Work Phone: Start: 03-31-2015 End: 04-20-2015 Lipid panel [AGGREGATE] *Lipid Profile CC PCP [facility] Work Phone: Start: 03-31-2015 End: 03-31-2015 PFM PFM [facility] Work Phone: Start: 03-31-2015 End: 04-20-2015 Thyroid stimulating hormone (TSH) *TSH [facility] Work Phone: Start: 03-31-2015 End: 04-20-2015 Thyroxine (T4) *T4 (Total) [facility] Work Phone: Start: 01-08-2015 End: 01-09-2015 BNP *Brain Natriuretic Peptide BNP [facility] Work Phone: Start: 01-08-2015 End: 03-25-2015 Follow Up Appt Other Follow Up Appt Other [facility] Work Phone: Start: 09-29-2014 End: 10-22-2014 *Hepatic Function Panel *Hepatic Function Panel [facility] Work Phone: Start: 09-29-2014 End: 10-22-2014 Lipid panel [AGGREGATE] *Lipid Profile CC PCP [facility] Work Phone: Start: 09-22-2014 End: 09-22-2014 Follow Up Appt 6 months Follow Up Appt 6 months [facility] Work Phone: Start: 09-22-2014 End: 09-22-2014 Follow Up BP Check Follow Up BP Check [facility] Work Phone: Start: 09-22-2014 End: 09-22-2014 MMM MMM [facility] Work Phone: Start: 03-24-2014 End: 03-24-2014 Follow Up Appt 6 months Follow Up Appt 6 months [facility] Work Phone: Start: 03-24-2014 End: 03-24-2014 Follow Up Appt Other Follow Up Appt Other [facility] Work Phone: Start: 03-24-2014 End: 03-24-2014 PFM PFM [facility] Work Phone: Start: 03-19-2014 End: 03-31-2014 *Hepatic Function Panel *Hepatic Function Panel [facility] Work Phone: Start: 03-19-2014 End: 03-31-2014 Lipid panel [AGGREGATE] *Lipid Profile CC PCP [facility] Work Phone: Start: 12-04-2013 End: 12-04-2013 *BMP *BMP [facility] Work Phone: Start: 12-04-2013 End: 12-04-2013 CBC W Auto Differential panel - Blood *CBC without Diff [facility] Work Phone: Start: 12-04-2013 End: 03-25-2015 Chest x-ray X-Ray, Chest, PA & Lateral [employer] [facility] Work Phone: Start: 12-04-2013 End: 12-04-2013 Coagulation factor induced.INR assay in platelet poor plasma *PT/INR [facility] Phone: Start: 12-04-2013 End: 03-12-2014 Electrocardiogram, complete EKG (In office) [employer] [facility] Work Phone: Start: 12-04-2013 End: 12-04-2013 Left Heart Cath Left Heart Cath [employer] [facility] Work Phone: Start: 12-02-2013 End: 12-05-2013 Stress Echocardiogram (treadmill) Stress Echocardiogram (treadmill) [facility] Phone: Start: 10-30-2013 End: 01-08-2015 Follow Up Appt Other Follow Up Appt Other [facility] [employer] Work Phone: Start: 09-04-2013 End: 09-16-2013 *Hepatic Function Panel *Hepatic Function Panel [facility] Work Phone: Start: 09-04-2013 End: 09-04-2013 Follow Up Appt 6 months Follow Up Appt 6 months [facility] Work Phone: Start: 09-04-2013 End: 01-08-2015 Follow Up Appt Other Follow Up Appt Other [employer] Work Phone: Start: 09-04-2013 End: 09-16-2013 Lipid panel [AGGREGATE] *Lipid Profile CC PCP [employer] [facility] Work Phone: Start: 09-04-2013 End: 09-04-2013 MMM MMM [employer] [facility] Work Phone: Start: 06-17-2013 End: 09-16-2013 *Hepatic Function Panel *Hepatic Function Panel [facility] Phone: Start: 06-17-2013 End: 09-16-2013 Lipid panel [AGGREGATE] *Lipid Profile CC PCP [employer] [facility] Work Phone: Start: 04-19-2013 PNEUMOCOCCAL (2 - PCV) PNEUMOCOCCAL (2 - PCV) [facility] Start: 01-30-2013 End: 01-30-2013 Arterial exam Arterial exam [facility] Work Phone: Start: 01-30-2013 End: 01-30-2013 Follow Up Appt 6 months Follow Up Appt 6 months [employer] Work Phone: Start: 01-30-2013 End: 01-30-2013 PFM PFM [facility] Work Phone: Start: 01-30-2013 End: 01-30-2013 Pulmonary Fuction Test - complete Pulmonary Fuction Test - complete [facility] Work Phone: Start: 12-17-2012 End: 12-17-2012 *BMP *BMP [facility] Work Phone: Start: 12-17-2012 End: 12-02-2013 CBC W Auto Differential panel - Blood *CBC without Diff [facility] Work Phone: Start: 12-17-2012 End: 12-02-2013 Chest x-ray X-Ray, Chest, PA & Lateral [facility] Work Phone: Start: 12-17-2012 End: 12-02-2013 Coagulation factor induced.INR assay in platelet poor plasma [facility] Work Phone: Start: 12-17-2012 End: 12-17-2012 Electrocardiogram, complete EKG (In office) [facility] Work Phone: Start: 12-17-2012 End: 12-02-2013 Follow Up Appt Other Follow Up Appt Other [facility] Work Phone: Start: 12-17-2012 End: 12-02-2013 Left Heart Cath Left Heart Cath [facility] Work Phone: Start: 12-17-2012 End: 12-02-2013 PFM PFM [facility] Work Phone: Start: 2012 End: 12-17-2012 *Hepatic Function Panel *Hepatic Function Panel [facility] Work Phone: Start: 2012 End: 2012 Cardiac Rehab Cardiac Rehab [facility] Work Phone: Start: 2012 End: 10-23-2012 Electrocardiogram, complete EKG (In office) [facility] Work Phone: Start: 2012 End: 2012 Follow Up Appt Other Follow Up Appt Other [facility] Work Phone: Start: 2012 End: 12-17-2012 Lipid panel [AGGREGATE] *Lipid Profile [employer] Work Phone: Start: 09-03-2012 End: 09-04-2012 *BMP *BMP [facility] Work Phone: Start: 09-03-2012 End: 09-03-2012 aPTT *PTT-Partial Thromboplastin Time [facility] Work Phone: Start: 09-03-2012 End: 09-03-2012 aPTT Coag time (PPP) *PTT-Partial Thromboplastin Time [facility] Work Phone: Start: 09-03-2012 End: 09-04-2012 CBC W Auto Differential panel - Blood *CBC without Diff [facility] Work Phone: Start: 09-03-2012 End: 09-04-2012 Chest x-ray X-Ray, Chest, PA & Lateral [facility] Work Phone: Start: 09-03-2012 End: 09-03-2012 Coagulation factor induced.INR assay in platelet poor plasma *PT/INR [facility] Work Phone: Start: 09-03-2012 End: 09-04-2012 Electrocardiogram, complete EKG (In office) [facility] Work Phone: Start: 09-03-2012 End: 2012 Follow Up Appt Other Follow Up Appt Other [facility] Work Phone: Start: 09-03-2012 End: 09-04-2012 Left Heart Cath Left Heart Cath [facility] Work Phone: Start: 09-03-2012 End: 2012 MMM MMM [facility] Work Phone: Start: 08-21-2012 End: 2012 *BMP *BMP [facility] Work Phone: Start: 08-21-2012 End: 2012 aPTT *PTT-Partial Thromboplastin Time [facility] Work Phone: Start: 08-21-2012 End: 2012 aPTT Coag time (PPP) *PTT-Partial Thromboplastin Time [facility] Work Phone: Start: 08-21-2012 End: 2012 CBC W Auto Differential panel - Blood *CBC without Diff [facility] Work Phone: Start: 08-21-2012 End: 2012 Chest x-ray X-Ray, Chest, PA & Lateral [facility] Work Phone: Start: 08-21-2012 End: 2012 Coagulation factor induced.INR assay in platelet poor plasma *PT/INR [facility] Work Phone: Start: 08-21-2012 End: 2012 Electrocardiogram, complete EKG (In office) [facility] Work Phone: Start: 08-21-2012 End: 08-21-2012 Left Heart Cath Left Heart Cath [facility] Work Phone: Start: 07-18-2012 End: 07-18-2012 Echocardiography Echocardiogram (complete) [facility] Work Phone: Start: 07-18-2012 End: 07-18-2012 Electrocardiogram, complete EKG (In office) [facility] Work Phone: Start: 07-18-2012 End: 07-18-2012 Follow Up Appt 6 months Follow Up Appt 6 months [facility] Work Phone: Start: 07-18-2012 End: 07-18-2012 Nuclear stress test -exercise Nuclear stress test -exercise [facility] Work Phone: Start: 07-18-2012 End: 07-18-2012 PFM PFM [facility] Work Phone: Start: 09-22-2007 SHINGRIX VACCINE (1 of 2) SHINGRIX VACCINE (1 of 2) [facility] Start: 2002 COLOGUARD (FIT-DNA) COLOGUARD (FIT-DNA) [facility] Start: [address] COLONOGRAPHY [facility] Start: 2002 Screening for malignant neoplasm of colon [facility] Start: 2002 SIGMOIDOSCOPY SIGMOIDOSCOPY [facility] Start: 1976 Urine microalbumin profile [facility] Start: 09-22-1975 BP CONTROLLED (<130/80) BP CONTROLLED (<130/80) [facility] Start: 09-22-1975 HIV SCREENING HIV SCREENING [facility] 24 Hour ECG [facility] Work Phone: Acetaminophen [Mass/volume] in Unspecified specimen [facility] Ambulatory ECG [facility] Clostridioides diffi cile toxin genes [Presence] in Stool by ASHLEY with probe detection C. DIFFICILE PCR Lab Routine Diarrhea, unspecified type LLQ pain Chronic RLQ pain Ordered: 03/08/2024 [facility] Comment on above: Ordered: 03/08/2024 End: 04-07-2025 CT Abdomen and Pelvis W contrast IV [facility] Comment on above: 1 Occurrences starting 03/08/2024 until 04/07/2025 End: 01-11-2025 CTA Chest vessels WO and W contrast IV CTA CHEST (NONGATED) WO/W IVCON Radiology STAT Chest pain on breathing 1 Occurrences starting 12/13/2023 until 01/11/2025 [facility] Work Phone: Comment on above: 1 Occurrences starting 12/13/2023 until 01/11/2025 End: 01-11-2025 CTA Pulmonary arteries for pulmonary embolus W contrast IV CT CHEST W IVCON PE Radiology STAT Chest pain on breathing 1 Occurrences starting 12/13/2023 until 01/11/2025 [facility] Work Phone: Comment on above: 1 Occurrences starting 12/13/2023 until 01/11/2025 ENTERIC BACTERIAL PA AUBREE BY PCR ENTERIC BACTERIAL PANEL BY PCR Lab Routine Diarrhea, unspecified type Ordered: 03/08/2024 [facility] Comment on above: Ordered: 03/08/2024 FECAL LACTOFERRIN/LEUKOCYTES FECAL LACTOFERRIN/LEUKOCYTES Lab Routine Diarrhea, unspecified type Ordered: 03/08/2024 [facility] Comment on above: Ordered: 03/08/2024 End: 12-31-2025 Flexible sigmoidoscopy study COLONOSCOPY DIAGNOSTIC Endoscopy Routine Rectal bleeding 1 Occurrences starting 12/31/2024 until 12/31/2025 [facility] Work Phone: Comment on above: 1 Occurrences starting 12/31/2024 until 12/31/2025 Giardia lamblia+Cryptosporidium sp Ag [Presence] in Stool by Immunoassay CRYPTOSPORIDIUM AND GIARDIA ANTIGENS BY EIA Microbiology Routine Diarrhea, unspecified type Ordered: 03/08/2024 [facility] Comment on above: Ordered: 03/08/2024 Magnesium [Mass/volu me] in Serum or Plasma [facility] Heart Views W str ess and W radionuclide IV [facility] Work Phone: NM Heart Views W str ess and W radionuclide IV [facility] Patient Education [facility] Work Phone: Patient referral [facility] Work Phone: Respiratory pathogen s DNA and RNA panel - Respiratory specimen by ASHLEY with probe detection [facility] Work Phone: [facility] End: 07-24-2025 XR Chest PA and Lateral XR CHEST 2V FRONTAL/LAT Radiology Routine Bacterial pneumonia 1 Occurrences starting 06/24/2024 until 07/24/2025 [facility] Work Phone: Comment on above: 1 Occurrences starting 06/24/2024 until 07/24/2025 [facility] Immunizations Immunization Date Immunization Notes Care Provider Mookie morrison 11-29-2023 pneumococcal Conjuga te, unspecified formulation Jagjit Cheema MD Work Phone: [facility] Work Phone: 11-29-2023 pneumococcal conjuga te (PCV20) vaccine, 20 valent (PREVNAR 20) Jagjit Cheema MD Work Phone: [facility] 07-26-2023 COVID-19 vaccine, ag e 12+ yr, season (PFIZER-ZaarlyNTTangled) Jagjit Cheema MD Work Phone: [facility] 07-26-2023 influenza (HD-IIV4) vaccine, age 65+ yr, high dose, quadrivalent, PF (FLUZONE HIGH-DOSE) Jagjit Cheema MD Work Phone: [facility] 07-26-2023 influenza virus vacc ine, unspecified formulation Jagjit Cheema MD Work Phone: [facility] 05-03-2021 Covid (Pfizer) Dr. Jagjit marcum Work Phone: [facility] 09-14-2020 Covid (Pfizer) Dr. Jagjit marcum Work Phone: [facility] 08-24-2020 Covid (Pfizer) Dr. Jagjit marcum Work Phone: [facility] 07-11-2019 influenza, injectabl e, quadrivalent, preservative free [facility] 07-11-2019 influenza, seasonal, injectable Dr. Jagjit Cheema Work Phone: [facility] 07-11-2019 influenza, seasonal, injectable, preservative free Oliva Gutierrez PA-C Work Phone: [facility] 07-11-2019 influenza virus vacc ine, unspecified formulation Jagjit Cheema MD Work Phone: [facility] 05-01-2015 influenza, injectabl e, quadrivalent, preservative free [facility] 05-01-2015 influenza, seasonal, injectable Dr. Jagjit Cheema Work Phone: [facility] 05-01-2015 influenza, seasonal, injectable, preservative free Oliva SMITHC Work Phone: [facility] 04-29-2015 influenza, seasonal, injectable Oliva Mykeblanc PA-C Work Phone: [facility] 05-20-2013 influenza virus vacc ine, unspecified formulation Oliva Jeanblanc PA-C Work Phone: [facility] 04-19-[address] Jagjit Cheema Work Phone: [facility] 04-19-2013 influenza, seasonal, injectable, preservative free Oliva Mattanblanc PA-C Work Phone: [facility] 04-19-2012 pneumococcal polysaccharide vaccine, 23 valent Oliva Jeanblanc PA-C Work Phone: [facility] 04-19-[address] Apollo bill [place] Work Phone: [facility] Work Phone: 04-19-2012 pneumococcal vaccine , unspecified formulation [facility] 03-18-2011 influenza virus vacc ine, unspecified formulation Olvia Jeanblanc PA-C Work Phone: [facility] Work Phone: 03-18-2011 pneumococcal polysaccharide vaccine, 23 valent Oliva Jeanblanc PA-C Work Phone: [facility] Work Phone: Payers Date Payer Category Payer Self-pay [id number] 2022 [facility] DICARE SUPPLEMENT [id number] 2022 Unknown ANTHEM ANTHEM ME DICARE SUPPLEMENT [id number] 2022-Present [phone] [place] [address] Indemnity [id number] 2022 Unknown [id number] 2022 Medicare [id number] 2022 Medicare [id number] 2019 Private Health Insurance [employer] Emma KOKI PPO [id number] 2019-Present [phone] [address] [place] [address] PPO [id number] 2019 Private Health Insurance [id number] 2013 Private Health Insurance [id number] Unknown [id number] Unknown [id number] Unknown [id number] Unknown [id number] Unknown [id number] Unknown [id number] Unknown [id number] Unknown [id number] Social History Date Type Detail Facility Start: 02-12-2022 End: 03-08-2024 Tobacco smoking status NHIS Ex-smoker [facility] Work Phone: Start: 02-08-1982 End: 02-08-1987 History of tobacco use Current smoker [facility] Start: 02-08-1982 End: 02-08-1987 History of tobacco use Cigarette Smoker [facility] End: 12-03-2017 History of tobacco use Chews Tobacco [facility] Start: 09-04-2021 End: 12-31-2024 Alcohol intake Current drinker of alcohol (finding) [facility] Start: 05-24-2020 End: 09-04-2021 Alcohol intake [facility] Start: 05-04-2016 History SDOH Alcohol Comment rare [facility] Start: 09-06-2013 End: 02-12-2022 Tobacco Comment patient smoked for a few months in 2006 [facility] Start: 1955 Sex Assigned At Not on file [facility] Start: 03-29-2020 End: 12-11-2021 Exposure to SARS-CoV-2 (event) Not sure [facility] Start: 10-20-2021 End: 07-05-2023 Tobacco smoking status IDIS Unknown if ever smoked [facility] Start: 02-29-2020 Occasional [facility] Start: 02-28-2020 None [facility] Start: 02-29-2020 Spouse/ Significant Other [facility] Start: 02-29-2020 Non-smoker [facility] Start: 1955 Sex Assigned At Male [facility] Start: 11-29-2021 History SDOH Alcohol Frequency 98 [facility] Start: 11-29-2021 History SDOH Physical Activity DPW 0 [facility] Start: 11-29-2021 History SDOH Housing Unable to Pay 3 [facility] Start: 04-30-2019 End: 02-12-2022 Tobacco use and exposure User of smokeless tobacco [facility] Work Phone: Start: 12-15-2022 End: 03-08-2024 Tobacco use and exposure Former smokeless tobacco user [facility] Start: 12-19-2022 End: 11-18-2024 Alcohol intake Ex-drinker (finding) [facility] Start: 12-15-2022 Tobacco Comment patient smoked for a few months in 2006Quit chew June 2022 [facility] Start: 05-24-2020 End: 11-29-2021 Social connection and isolation panel [facility] In a typical week, h ow many times do you talk on the telephone with family, friends, or neighbors? Patient refused [facility] Are you now , , , , never or living with a partner? Refused [facility] (I/We) worried wheth er (my/our) food would run out before (I/we) got money to buy more. DK or Refused [facility] Do you belong to any clubs or organizations such as christian groups, unions, [employer] or athletic groups, or school groups? Yes [facility] Are you now , , , , never or living with a partner? [facility] How often to you hav e a drink containing alcohol? Monthly or less [facility] How many standard dr inks containing alcohol do you have on a typical day? 1 or 2 [facility] How often do you hav e 6 or more drinks on 1 occasion? Never [facility] Do you feel stress - tense, restless, nervous, or anxious, or unable to sleep at night because your mind is troubled all the time - these days [OSQ] Very much [facility] (I/We) worried wheth er (my/our) food would run out before (I/we) got money to buy more. Never true [facility] Start: 12-31-2024 Alcohol Comment occ [facility] Medical Equipment Procedure Code Equipment Code Equipment Original Text Equipment Identifier Dates Pros Penl Ams 70 0 Acc Kt - [id number] Start: 01-29-2015 Pros Penl Ams 70 0ms 18cm - [id number] Start: 01-29-2015 Pros Penl 700cx 3cm Rear Tip - [id number] Start: 01-29-2015 Pros Penl Ams 70 0ms Resvr 65ml - [id number] Start: 01-29-2015 PENILE IMPLANT FDA Start: [...] 6cm Small Collagen Surgical Patch [facility] - [id number] Start: 07-19-2023 PENILE IMPLANT FDA Start: Inject 1 Each intramuscularly one time a week. Uses 4 syringes per month with testosterone injections [id number] Start: 06-11-2019 End: 06-10-2020 PENILE IMPLANT FDA Start: PENILE IMPLANT FDA Start: PENILE IMPLANT FDA Start: PENILE IMPLANT FDA Start: Goals Date Patient Goal Desired Activity /State Functional Status Date Assessment Result Facility 12-16-2022 Functional status Ambulates;Up a d melony;Bathroom Privilege [facility] Work Phone: 01-30-2015 Are you deaf, or do you have serious difficulty hearing No 01/30/2015 8:32 AM Jany NewRn) (Hist), RN No [facility] 01-30-2015 Are you blind, or do you have serious difficulty seeing, even when wearing glasses No 01/30/2015 8:32 AM Jany New) (Hist), RN No [facility] 01-30-2015 Do you have serious difficulty walking or climbing stairs No 01/30/2015 8:32 AM Jany NewRn) (Hist), RN No [facility] 01-30-2015 Do you have difficul ty dressing or bathing No 01/30/2015 8:32 AM Jany NewRn) (Hist), RN No [facility] 01-30-2015 Because of a physica l, mental, or emotional condition, do you have difficulty doing errands alone such as visiting a physician's office or shopping No 01/30/2015 8:32 AM Jany NewRn) (Hist), RN No [facility] Mental Status Date Assessment Result Facility 12-16-2022 Cognitive function Appropriate;Cooperativ e [facility] Work Phone: 12-15-2022 Cognitive function Level Of Cons ciousness Awake;Alert;Appropriate;Fol lows Commands [facility] Work Phone: 12-14-2022 Cognitive function Level Of Cons ciousness Awake;Alert;Appropriate;Fol lows Commands [facility] Work Phone: 05-07-2022 Cognitive function Level Of Cons ciousness Awake;Alert;Appropriate;Fol lows Commands [facility] Work Phone: 02-12-2022 Cognitive function Level Of Cons ciousness Awake;Alert;Appropriate;Fol lows Commands [facility] Work Phone: 01-30-2015 Because of a physica l, mental, or emotional condition, do you have serious difficulty concentrating, remembering, or making decisions No 01/30/2015 8:32 AM Jany NewRn) (Hist), RN No [facility] Clinical Notes 02-08-2007 to 01-20-2025 Telephone Encounter - Isabel Cottrell MA - 01/20/2025 10:37 AM EDTTelephone Encounter - Isabel Cottrell MA - 01/20/2025 10:37 AM Yesica Patino APRN.LEASING ASSISTANT - 12/31/2024 8:30 AM EDTPatient Instructions Note Date & Type Note Facility 01-20-2025 Telephone encounter Note See other TE [facility] 01-20-2025 Miscellaneous Notes See other TE documented in this encounter [facility] 12-31-2024 History of Presen t illness Narrative HISTORY AND PHYSICAL Lazaro Garzon : 1955 REFERRING PHYSICIAN: Jagjit Cheema [address] [facility] [address] CHIEF COMPLAINT: Patient presents with: New Patient: Colonoscopy consult - rectal bleeding HPI: Laazro is a 69 year old male referred [...] disease. >10 years ago Lazaro follows with [facility] for PAF s/p cardioversion (2022) and CAD. Last OV 12/11. Last stress test 12/11 negative for ischemia, EF: 65%. He denies CP, SOB, dizziness, palpitations, syncope, edema, recent hospitalizations Lazaro has sleep apnea c/w CPAP. Lazaro has undergone prior endoscopy. Last EGD & colonoscopy was 11/[address] Bennett at [place]. Sedation: MAC Impression: Medium-sized hiatal hernia, irregular [...] serious comorbidity present 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 Diaphragmatic hernia without [...] Right 1988 LAPS SURG CHOLECYSTECTOMY W/CHOLANGIOGRAPHY 2004 [facility] - Dr. Bales NASAL ENDOS,DIAG,UNI/ BILATERAL 12/01/2024 OPEN REPAIR OF ROTATOR CUFF ACUTE Rotator cuff repair PERCUTANEOUS CORONARY INTERVENTION 2006 stent to LAD REPAIR EPIGASTRIC HERNIA,REDUC 07/19/2023 umbilical TONSILLECTOMY PRIMARY/SECONDARY <AGE 12 Tonsillectomy FAMILY HISTORY Problem Relation Age of Onset Hypertension Mother Heart Mother Stroke Mother Allergies Mother Breast Cancer Mother Heart Father of [place] Allergies Father Allergies Sister Allergies Brother Prostate [...] edited and updated as necessary. Yesica Bacon APRN.LEASING ASSISTANT documented in this encounter [facility] 12-31-2024 Note HNO ID: [id number] Author: YESICA BACON APRN.CNP Service: ? Author Type: Nurse Practitioner Type: Progress Notes Filed: 12/31/2024 09:02 Note Text: HISTORY AND PHYSICAL Lazaro Garzon : 1955 REFERRING PHYSICIAN: Jagjit Cheema [address] [facility] [address] CHIEF COMPLAINT: Patient presents with: New Patient: [...] disease. >10 years ago Lazaro follows with [facility] for PAF s/p cardioversion (2022) and CAD. Last OV 12/11. Last stress test 12/11 negative for ischemia, EF: 65%. He denies CP, SOB, dizziness, palpitations, syncope, edema, recent hospitalizations Lazaro has sleep apnea c/w CPAP. Lazaro has undergone prior endoscopy. Last EGD AND colonoscopy was 11/[address] Bennett at [place]. Sedation: MAC Impression: Medium-sized hiatal hernia, irregular [...] serious comorbidity present 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 Diaphragmatic hernia without [...] years COLONOSCOPY 11/17 (more content not included)... [facility] 12-30-2024 Telephone encounter Note Prescription [...] Zarate LPN December 30, 2024 3:42 PM [facility] 07-14-2025 Miscellaneous Notes Prescription Refill Information [...] 2024 3:42 PM documented in this encounter [facility] 12-24-2024 Note HNO ID: [id number] Author: JAGJIT CHEEMA MD Service: ? Author [...] colonoscopy on 12/01/[address] Bennett at [place] revealed diverticuli and poor bowel preparation; recommended [...] Right 1988 LAPS SURG CHOLECYSTECTOMY W/CHOLANGIOGRAPHY 2004 [facility] - D (more content not included)... [facility] 12-24-2024 History of Presen t [...] colonoscopy on 12/01/[address] Bennett at [place] revealed diverticuli and poor bowel preparation; recommended [...] Right 1988 LAPS SURG CHOLECYSTECTOMY W/CHOLANGIOGRAPHY 2004 [facility] - Dr. 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 EPIGASTRIC HERNIA,REDUC 07/19/2023 umbilical TONSILLECTOMY PRIMARY/SECONDARY <AGE 12 Tonsillectomy FAMILY HISTORY Problem Relation Age of Onset Hypertension Mother Heart Mother Stroke Mother Allergies Mother Breast Cancer Mother Heart Father of [place] Allergies Father Asthma Daughter Allergies Sister Allergies [...] colonoscopy on 12/01/[address] Bennett at [place] revealed poor bowel preparation and multiple diverticuli; [...] weight loss. 4. 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 (I25.10) - Recent [...] patient) Jagjit Cheema MD Recording using ambient [employer] software for draft documentation of the visit was discussed with the patient/authorized senior account representative; all questions welcomed and answered. Patient/authorized senior account representative agreed to proceed documented in this encounter [facility] 12-24-2024 Telephone encounter Note Telma Pharmacist calling regarding Wegovy script received today. Pharmacist states order is for 0.25 mg but script directions state to give 0.5 mg. Pharmacist asking if provider could send script for the 0.5 mg? Ni Hewitt RN [facility] 12-24-2024 Miscellaneous Notes Telma Pharmacist calling regarding Wegovy script received today. Pharmacist states order is for 0.25 mg but script directions state to give 0.5 mg. Pharmacist asking if provider could send script for the 0.5 mg? Ni Hewitt RN documented in this encounter [facility] 12-24-2024 Instructions Jagjit Cheema MD - [...] Weigh yourself and send an update via Phoneplus or call toward the end of the month with your weight change and how you re feeling on the medication. - Schedule a repeat colonoscopy with the general surgery team (Dr. Bales or his partner Dr. Bennett at [place]) as soon as possible, since your last [...] further care steps. documented in this encounter [facility] 11-20-2024 Discharge summary Note Date/Time November 20, 2024 1:37pm [facility] Medical Records Department [address] [place] [address] Emergency Department Summary 11/20/24 MR#: [id number] Acct: [id number] Name: LAZARO GARZON Rep #:[id number] : 1955 69 From: Jose Alberto Contreras [...] or orthopnea. 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 [facility] Medical History History of cardioversion First [...] disease) Essential hypertension Atherosclerotic heart disease of seneca coronary artery without angina pectoris Confusion Unstable [...] was able to walk to and from [facility] without any significant difficulty here in the [...] 82.7 H Lymph % (Auto) 11.7 L [place] % (Auto) 4.4 Eos % (Auto) 0.2 [...] evidence of acute cardiopulmonary pathology. Reading Location: [id number] Rhythm Strip Rhythm Strip: Sinus Rhythm Rate: [...] KAYLEE for stress appointment time) Print Language: Jamaican Disposition Disposition: Home, Self Care What to do if you have Problems For any increased pain, shortness of breath, bleeding, nausea or vomiting, chestpain, or any unexpected problems, contact your Primary Care Provider. Call [facility] ([phone]) or report to the closest Emergency Room. Call 911 if necessary. 11/20/24 1337 <Electronically signed by Jose Alberto Contreras MD> Cosigner Signature (if applicable): CC: Dr. Jagjit Cheema MD ~ Signed [facility] Work Phone: 1(770) 912-624706-04-2025 Discharge summary [facility] Medical Records Department [address] [place] [address] Emergency Department Summary 11/20/24 MR#: [id number] Acct: [id number] Name: LAZARO GARZON Rep #:[id number] : 1955 69 From: Jose Alberto Contreras [...] or orthopnea. 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 [facility] Medical History History of cardioversion First [...] disease) Essential hypertension Atherosclerotic heart disease of seneca coronary artery without angina pectoris Confusion Unstable [...] was able to walk to and from [facility] without any significant difficulty here in the [...] 82.7 H Lymph % (Auto) 11.7 L [place] % (Auto) 4.4 Eos % (Auto) 0.2 [...] evidence of acute cardiopulmonary pathology. Reading Location: [facility] Rhythm Strip Rhythm Strip: Sinus Rhythm Rate: [...] KAYLEE for stress appointment time) Print Language: Jamaican Disposition Disposition: Home, Self Care What to do if you have Problems For any increased pain, shortness of breath, bleeding, nausea or vomiting, chestpain, or any unexpected problems, contact your Primary Care Provider. Call [facility] ([phone]) or report tothe closest Emergency Room. Call 911 if necessary. 11/20/24 1337 Cosigner Signature (if applicable): CC: Dr. Jagjit Cheema MD ~ Signed [facility]06-04-2025 Radiology Diagnostic study note [facility] Imaging Services [address] [place] [address] Chest PA and Lateral MR#: [id number] Acct: [id number] Name: LAZARO GARZON Rep #: [id number] : 1955 M 69 From: Yahir Noel MD PCP: Dr. Jagjit Cheema MD Status: REG E R Study:Chest PA and Lateral Date of Exam: 11/20/24 Exam# [id number] Ordering Dr: Evan Contreras MD PROCEDURE: CHEST [...] evidence of acute cardiopulmonary pathology. Reading Location: [facility] CC: Dr. Jose Alberto Contreras MD; Dr. Jagjit Cheema MD ~ Auto Winder: Signed [facility] Work Phone: 1(407) 925-707406-02-2025 History of Present illness Narrative* Faustino Pineda, [...] PATIENT PRESENTS WITH AN IMPLANTABLE OR ATTACHED MOBILE DEVICE ENGINEER: No RADIOLOGY DEPARTMENT: General X-ray: Exam(s) Completed: Chest X-Ray PERIPHERAL IV DATA: Not applicable SIGNED BY: RT Mariann(Filippo) November 18, 2024 12:57 PM documented in this encounterGood Samaritan Hospital06-02-2025 NoteHNO ID: [id number] Author: FAUSTINO PINEDA RT(R) Service: ? Author Type: Bartender Server Type: Progress Notes Filed: 11/18/2024 13:05 Note [...] PATIENT PRESENTS WITH AN IMPLANTABLE OR ATTACHED MOBILE DEVICE ENGINEER: No RADIOLOGY DEPARTMENT: General X-ray: Exam(s) Completed: Chest X-Ray PERIPHERAL IV DATA: Not applicable SIGNED BY: WILBER Waite) November 18, 2024 12:57 [facility]06-02-2025 NoteHNO ID: [id number] Author: SUSAN KERR APRN.LEASING ASSISTANT Service: ? Author Type: Nurse Practitioner Type: [...] Right 1988 LAPS SURG CHOLECYSTECTOMY W/CHOLANGIOGRAPHY 2004 [facility] - Dr. Bales OPEN REPAIR OF ROTATOR [...] Mother Breast Cancer Mother Heart Father of [place] Allergies Father Asthma Daughter Allergies Sister Allergies Brother Allergies Daughter Social History Tobacco Use Smoking status: Former Current packs/day: 0.00 Average packs/day: 2.0 packs/day for 5.0 years (10.0 ttl pk-yrs) Types: Cigarettes Start date: 02/08/1982 Quit date: 02/08/[address] [facility] (more content not included)...[facility]06-02-2025 History of Present illness Narrative* Susan Kerr APRN.[facility] - 11/18/2024 12:29 PM EDT This [...] Right 1988 LAPS SURG CHOLECYSTECTOMY W/CHOLANGIOGRAPHY 2004 [facility] - Dr. Bales OPEN REPAIR OF ROTATOR [...] Mother Breast Cancer Mother Heart Father of [place] Allergies Father Asthma Daughter Allergies Sister Allergies [...] worsening/no improvement. Susan Kerr APRN.CNP Recording using [employer] software for draft documentation of the visit was discussed with the patient/authorized senior account representative; all questions welcomed and answered. Patient/authorized senior account representative agreed to proceed documented in this encounterGood Samaritan Hospital06-02-2025 Instructions* Patient Instructions* Susan Kerr APRN.CNP - 11/18/2024 11:55 AM EDT - Get the chest xray. - Begin doxycycline: take one dose twice daily for 10 days. - Begin prednisone: take one tablet once a day for 5 days. - Continue using your albuterol inhaler and Claritin as you have been. Let us know if no improvement/worsening. documented in this encounterGood Samaritan Hospital05-12-2025 Radiology Diagnostic study note [facility] Imaging Services [facility] [place], [place] [id number] Abdomen/Pelvis W IV Cont ONLY MR#: [id number] Acct: [id number] Name: LAZARO GARZON Rep #: [id number] : 1955 M 69 From: Yannick Russ MD PCP: Dr. Jagjit Cheema MD Status: REG E R Study:Abdomen/Pelvis W IV Cont ONLY Date of E xam: 10/28/24 Exam# [id number] Ordering Dr: Duncan Mclaughlin DO PROCEDURE: ABDOMEN/PELVIS [...] lower chance of developing HCC. Reading Location: [id number] CC: Dr. Robby Mclaughlin DO; Dr. Jagjit Cheema MD ~ Auto Winder: Signed [facility]05-12-2025 Telephone encounter Note* Telephone Encounter - Jagjit Cheema MD - 10/28/2024 8:57 AM EDT agree [facility]05-12-2025 Miscellaneous Notes* Telephone Encounter - Jagjit [...] get a friend to take him to [facility] ER. * Telephone Encounter - Ni Hewitt RN - 10/28/2024 8:14 AM EDT Attempted to call patient for further triage regarding MC message received today. No answer. VM left for pt to call PCP office back as soon as possible. Ni Hewitt RN documented in this encounterGood Samaritan Hospital05-12-2025 Telephone encounter Note * Telephone Encounter [...] get a friend to take him to [facility] ER. [facility]05-12-2025 Telephone encounter Note* Telephone Encounter - Ni Hewitt RN - 10/28/2024 8:14 AM EDT Attempted to call patient for further triage regarding MC message received today. No answer. VM left for pt to call PCP office back as soon as possible. Ni Hewitt RN [facility]05-05-2025 NoteHNO ID: [id number] Author: JAGJIT CHEEMA MD Service: ? Author [...] Lymph 1.00 - 4.00 k/uL 0.91 (L) [place]% % 9.0 Abs [place] <0.87 k/uL 0.40 Eosin% % 1.4 Abs [...] in 3 yea (more content not included)... [facility]05-05-2025 History of Present illness Narrative* [...] Lymph 1.00 - 4.00 k/uL 0.91 (L) [place]% % 9.0 Abs [place] <0.87 k/uL 0.40 Eosin% % 1.4 Abs [...] Right 1988 LAPS SURG CHOLECYSTECTOMY W/CHOLANGIOGRAPHY 2004 [facility] - Dr. 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 EPIGASTRIC HERNIA,REDUC 07/19/2023 umbilical TONSILLECTOMY PRIMARY/SECONDARY <AGE 12 Tonsillectomy FAMILY HISTORY Problem Relation Age of Onset Hypertension Mother Heart Mother Stroke Mother Allergies Mother Breast Cancer Mother Heart Father of [place] Allergies Father Asthma Daughter Allergies Sister Allergies [...] low. Jagjit Cheema MD documented in this encounterGood Samaritan Hospital04-30-2025 Telephone encounter Note * Telephone Encounter [...] Zarate LPN October 16, 2024 2:11 PM [facility]04-30-2025 Miscellaneous Notes* Telephone Encounter - Reynaldo [...] 16, 2024 2:11 PM documented in this encounterGood Samaritan Hospital04-11-2025 Telephone encounter Note * Telephone Encounter - Jagjit Cheema MD - 09/27/2024 9:44 AM EDT Rx sent [facility]04-11-2025 Miscellaneous Notes* Telephone Encounter - Jagjit [...] Please review if correct. documented in this encounterGood Samaritan Hospital04-11-2025 Telephone encounter Note * Telephone Encounter [...] pend both rx. Please review if correct. [facility]04-07-2025 NoteHNO ID: [id number] Author: JAGJIT CHEEMA MD Service: ? Author [...] Right 1988 LAPS SURG CHOLECYSTECTOMY W/CHOLANGIOGRAPHY 2004 [facility] - Dr. 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 EPIGASTRIC HERNIA,REDUC 07/19/2023 umbilical TONSILLECTOMY PRIMARY/SECONDARY Tonsillectomy FAMILY HISTORY Problem Relation Age of Onset Hypertension Mother Heart Mother Stroke Mother Allergies Mother Breast Cancer Mother Heart Father of [place] Allergies Father Asthma Daughter Allergies Sister Allergies [...] history today. REVIEW OF (more content not included)...[facility]04-07-2025 History of Present illness Narrative* [...] Right 1988 LAPS SURG CHOLECYSTECTOMY W/CHOLANGIOGRAPHY 2004 [facility] - Dr. 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 EPIGASTRIC HERNIA,REDUC 07/19/2023 umbilical TONSILLECTOMY PRIMARY/SECONDARY <AGE 12 Tonsillectomy FAMILY HISTORY Problem Relation Age of Onset Hypertension Mother Heart Mother Stroke Mother Allergies Mother Breast Cancer Mother Heart Father of [place] Allergies Father Asthma Daughter Allergies Sister Allergies [...] one month or prn documented in this encounterGood Samaritan Hospital04-03-2025 Telephone encounter Note * Telephone Encounter - Kira Hassan RN - 09/19/2024 10:27 AM EDT Pt called and is notified of providers message. Pt voices understanding and would like to have an appointment and discuss with Dr Cheema. Pt scheduled 09/23/[address] Cheema. Kira Hassan RN [facility]04-03-2025 Miscellaneous Notes* Telephone Encounter - Kira [...] 09/18/2024 12:29 PM EDT documented in this encounterGood Samaritan Hospital04-03-2025 Telephone encounter Note * Telephone Encounter [...] Cheema MD on 09/18/2024 12:29 PM EDT [facility]03-26-2025 NoteHNO ID: [id number] Author: JAGJIT CHEEMA MD Service: ? Author [...] checked by Dr Ramos, urology. Still seeing [facility]. MEDICATIONS: Current Outpatient Medications Medication [...] Right 1987 LAPS SURG CHOLECYSTECTOMY W/CHOLANGIOGRAPHY 2004 [facility] - Dr. 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 EPIGASTRIC HERNIA,REDUC 07/19/2023 umbilical TONSILLECTOMY PRIMARY/SECONDARY Tonsillectomy FAMILY HISTORY (more content not included)...[facility] 09-11-2024 History of Present illness [...] occasional cough. Declines work up. Discussed [facility] if worsens. Just had testosterone checked by Dr Ramos, urology. Still seeing [facility]. MEDICATIONS: Current Outpatient Medications Medication [...] Right 1988 LAPS SURG CHOLECYSTECTOMY W/CHOLANGIOGRAPHY 2004 [facility] - Dr. 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 EPIGASTRIC HERNIA,REDUC 07/19/2023 umbilical TONSILLECTOMY PRIMARY/SECONDARY <AGE 12 Tonsillectomy FAMILY HISTORY Problem Relation Age of Onset Hypertension Mother Heart Mother Stroke Mother Allergies Mother Breast Cancer Mother Heart Father of [place] Allergies Father Asthma Daughter Allergies Sister Allergies [...] refill. ASSESSMENT/PLAN: 1. 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- ICD9: 414.01, ICD10: I25.10 (primary diagnosis) - stable. Follow with [facility]. 2. Hyperlipidemia, unspecified hyperlipidemia type [...] rto in six months. documented in this encounterGood Samaritan Hospital02-28-2025 Evaluation note* Diagnosis Onset Date Resolution Status Admit Date Atherosclerotic heart diseas e of seneca coronary artery without angina pectoris chronic August 16 10:25am Atrial flutter chronic July 212024 10:25am Essential hypertension chronic 2024 10:25am Pure hypercholesterolemia chronic August 16, 2024 10:25am [facility] Work Phone: 1(720) 261-996102-28-2025 Evaluation note* Diagnosis Onset Date Resolution Status Admit Date Atherosclerotic heart diseas e of seneca coronary artery without angina pectoris chronic August 16 10:25am Atrial flutter chronic July 212024 10:25am Essential hypertension chronic 2024 10:25am Pure hypercholesterolemia chronic August 16, 2024 10:25am Atherosclerotic heart diseas e of seneca coronary artery without angina pectoris chronic November 28, 2024 9:57am Atrial flutter chronic November 28, 2024 9:57am Essential hypertension chronic Ju 2024 9:57am Obesity chronic November 28 9:57am DEENA (obstructive sleep apnea) chroni c November 28, 2024 9:57am Pure hypercholesterolemia chronic November 28, 2024 9:57am [facility] [email or web address] Work Phone: 1(176) 859-450002-28-2025 Telephone encounter Note* Telephone Encounter - Giselle [...] LUISA Martin August 16, 2024 10:16 AM [facility]02-28-2025 Miscellaneous Notes* Telephone Encounter - Giselle [...] 16, 2024 10:16 AM documented in this encounterGood Samaritan Hospital01-24-2025 Miscellaneous Notes* Telephone Encounter - Sandy Velez LPN - 07/12/2024 11:35 AM EST Ratna with [employer] called for the last couple office visits to be faxed to them. Identified pt with name and date of . . Ratna looking for mention of c-pap. I did not see anything,. Ratna will look over. Done. Sandy Velez LPN documented in this encounterGood Samaritan Hospital01-24-2025 Telephone encounter Note * Telephone Encounter - Sandy Velez LPN - 07/12/2024 11:35 AM EST Ratna with [employer] called for the last couple office visits to be faxed to them. Identified pt with name and date of . . Ratna looking for mention of c-pap. I did not see anything,. Ratna will look over. Done. Sandy Velez LPN [facility]01-20-2025 History of Present illness Narrative* Faustino [...] PATIENT PRESENTS WITH AN IMPLANTABLE OR ATTACHED MOBILE DEVICE ENGINEER: No RADIOLOGY DEPARTMENT: General X-ray: Exam(s) Completed: Chest X-Ray PERIPHERAL IV DATA: Not applicable SIGNED BY: RT Mariann(R) July 08, 2024 10:04 AM documented in this encounterGood Samaritan Hospital01-20-2025 NoteHNO ID: [id number] Author: FAUSTINO PINEDA RT(Filippo) Service: ? Author Type: Bartender Server Type: Progress Notes Filed: 07/08/2024 10:11 Note [...] PATIENT PRESENTS WITH AN IMPLANTABLE OR ATTACHED MOBILE DEVICE ENGINEER: No RADIOLOGY DEPARTMENT: General X-ray: Exam(s) Completed: Chest X-Ray PERIPHERAL IV DATA: Not applicable SIGNED BY: RT Mariann(R) July 08, 2024 10:04 [facility]01-20-2025 NoteHNO ID: [id number] Author: JAGJIT CHEEMA MD Service: ? Author [...] Abs Lymph 1.00 - 4.00 k/uL 1.20 [place]% % 8.1 Abs [place] <0.87 k/uL 0.60 Eosin% % 0.9 Abs [...] Right 1987 LAPS SURG CHOLECYSTECTOMY W/CHOLANGIOGRAPHY 2004 [facility] - Dr. 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 EPIGASTRIC HERNIA,REDUC 07/19/2023 umbilical TONSILLECTOMY PRIMARY/SECONDARY Tonsillectomy FAMILY HISTORY Problem Relation Age of Onset Hypertension Mother Heart Mother Stroke Mother Allergies Mother Breast Cancer Mother Heart Father of [place] Allergies Father Asthma Daughter Allergies Sister Allergies [...] and recommended the followin (more content not included)...[facility]01-20-2025 History of Present illness Narrative* [...] Abs Lymph 1.00 - 4.00 k/uL 1.20 [place]% % 8.1 Abs [place] <0.87 k/uL 0.60 Eosin% % 0.9 Abs [...] Right 1988 LAPS SURG CHOLECYSTECTOMY W/CHOLANGIOGRAPHY 2004 [facility] Gina Bales OPEN REPAIR OF ROTATOR CUFF ACUTE Rotator cuff repair PERCUTANEOUS CORONARY INTERVENTION 2007 stent to LAD REPAIR EPIGASTRIC HERNIA,REDUC 07/19/2023 umbilical TONSILLECTOMY PRIMARY/SECONDARY <AGE 12 Tonsillectomy FAMILY HISTORY Problem Relation Age of Onset Hypertension Mother Heart Mother Stroke Mother Allergies Mother Breast Cancer Mother Heart Father of [place] Allergies Father Asthma Daughter Allergies Sister Allergies [...] above. Jagjit Cheema MD documented in this encounterGood Samaritan Hospital01-13-2025 Telephone encounter Note * Telephone Encounter [...] Cope LPN July 01, 2024 12:28 PM [facility]01-13-2025 Miscellaneous Notes* Telephone Encounter - Fouzia [...] 01, 2024 12:28 PM documented in this encounterGood Samaritan Hospital01-07-2025 Telephone encounter Note * Telephone Encounter - Sincere Pickard RN - 06/25/2024 2:47 PM EST Phoned pt and given provider's message below with verbalized understanding. Pt agreeable. [facility]01-07-2025 Miscellaneous Notes* Telephone Encounter - Sincere [...] labs in two weeks. documented in this encounterGood Samaritan Hospital01-07-2025 Telephone encounter Note * Telephone Encounter - Jagjit Cheema MD - 06/25/2024 12:37 PM EST If not taking a water pill should not necessarily require constant potassium. Can come from things like diarrhea or vomiting as well. Lets recheck and see what the numbers show [facility]01-07-2025 Telephone encounter Note* Telephone Encounter - Jerilyn Henry MA - 06/25/2024 9:52 AM EST Patient informed. He has been taking his potassium faithfully. Has not missed doses. Knows that his numbers have beentrending low. He is wondering if he should increase the potassium? Advised him to repeat labs in two weeks. He verbalized understanding. Jerilyn Henry MA [facility]01-07-2025 Telephone encounter Note* Telephone Encounter - Jagjit Cheema MD - 06/25/2024 8:59 AM EST His labs are overall ok other than potassium is slightly low. Make sure taking his potassium. His sugar is up although that could be residual from his prednisone. Let me know about the potassium . Either way I would recheck labs in two weeks. [facility]01-06-2025 NoteHNO ID: [id number] Author: JAGJIT CHEEMA MD Service: ? Author [...] Right 1988 LAPS SURG CHOLECYSTECTOMY W/CHOLANGIOGRAPHY 2004 [facility] - Dr. 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 EPIGASTRIC HERNIA,REDUC 07/19/2023 umbilical TONSILLECTOMY PRIMARY/SECONDARY Tonsillectomy FAMILY HISTORY Problem Relation Age of Onset Hypertension Mother Heart Mother Stroke Mother Allergies Mother Breast Cancer Mother Heart Father of [place] Allergies Father Asthma Daughter Allergies Sister Allergies [...] social history today. REVI (more content not included)...[facility]01-06-2025 History of Present illness Narrative* [...] Right 1988 LAPS SURG CHOLECYSTECTOMY W/CHOLANGIOGRAPHY 2004 [facility] - Dr. 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 EPIGASTRIC HERNIA,REDUC 07/19/2023 umbilical TONSILLECTOMY PRIMARY/SECONDARY <AGE 12 Tonsillectomy FAMILY HISTORY Problem Relation Age of Onset Hypertension Mother Heart Mother Stroke Mother Allergies Mother Breast Cancer Mother Heart Father of [place] Allergies Father Asthma Daughter Allergies Sister Allergies [...] two weeks or prn documented in this encounterGood Samaritan Hospital12-30-2024 Telephone encounter Note * Telephone Encounter - Brandie Lange LPN - 06/17/2024 4:01 PM EST Patient notified. [facility]12-30-2024 Miscellaneous Notes* Telephone Encounter - Brandie [...] if worsen at all. documented in this encounterGood Samaritan Hospital12-30-2024 Telephone encounter Note * Telephone Encounter - Jagjit Cheema MD - 06/17/2024 3:43 PM EST ?? Shows small pneumonia on left. Doxycycline should cover. Follow up with one of us next week. Use albuterol and prednisone Can add amoxil to be on the safe side to his doxy. Take both. Call if worsen at all. [facility]12-30-20[facility] History of Present illness Narrative* Faustino [...] PATIENT PRESENTS WITH AN IMPLANTABLE OR ATTACHED MOBILE DEVICE ENGINEER: No RADIOLOGY DEPARTMENT: General X-ray: Exam(s) Completed: Chest X-Ray PERIPHERAL IV DATA: Not applicable SIGNED BY: RT Mariann(Filippo) June 17, 2024 3:08 PM documented in this encounterGood Samaritan Hospital12-30-2024 NoteHNO ID: [id number] Author: FAUSTINO PINEDA RT(R) Service: ? Author Type: Bartender Server Type: Progress Notes Filed: 06/17/2024 15:14 Note [...] PATIENT PRESENTS WITH AN IMPLANTABLE OR ATTACHED MOBILE DEVICE ENGINEER: No RADIOLOGY DEPARTMENT: General X-ray: Exam(s) Completed: Chest X-Ray PERIPHERAL IV DATA: Not applicable SIGNED BY: RT Mariann(R) June 17, 2024 3:08 [facility]12-30-2024 NoteHNO ID: [id number] Author: JAGJIT CHEEMA MD Service: ? Author [...] Right 1988 LAPS SURG CHOLECYSTECTOMY W/CHOLANGIOGRAPHY 2004 [facility] - Dr. 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 EPIGASTRIC HERNIA,REDUC 07/19/2023 umbilical TONSILLECTOMY PRIMARY/SECONDARY Tonsillectomy FAMILY HISTORY Problem Relation Age of Onset Hypertension Mother Heart Mother Stroke Mother Allergies Mother Breast Cancer Mother Heart Father of [place] Allergies Father Asthma Daughter Allergies Sister Allergies Brother Allergies Daughter Social History Tobacco Use Smoking status: Former Current packs/day: 0.00 Average packs/day: 2.0 packs/day for 5.0 years (10.0 ttl pk-yrs) Types: Cigarettes Start date: 02/08/1982 Quit date: 02/08/1987 Years since quittin.3 Smokeless tobacco: Former Types: Chew Quit date: 12/03/2017 Tobacco comments: patient smoked for (more content not included)...[facility] 06-17-2024 History of Present illness [...] Right 1988 LAPS SURG CHOLECYSTECTOMY W/CHOLANGIOGRAPHY 2004 [facility] - Dr. 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 EPIGASTRIC HERNIA,REDUC 07/19/2023 umbilical TONSILLECTOMY PRIMARY/SECONDARY <AGE 12 Tonsillectomy FAMILY HISTORY Problem Relation Age of Onset Hypertension Mother Heart Mother Stroke Mother Allergies Mother Breast Cancer Mother Heart Father of [place] Allergies Father Asthma Daughter Allergies Sister Allergies [...] plan. Jagjit Cheema MD documented in this encounterGood Samaritan Hospital12-30-2024 Telephone encounter Note * Telephone Encounter - Brandie Lange LPN - 06/17/2024 11:51 AM EST Scheduled. [facility]12-30-2024 Miscellaneous Notes* Telephone Encounter - Brandie [...] 17, 2024 10:42 AM documented in this encounterGood Samaritan Hospital12-30-2024 Telephone encounter Note * Telephone Encounter - Jagjit Cheema MD - 06/17/2024 11:27 AM EST Needs to see one of us if that bad [facility]12-30-2024 Telephone encounter Note* Telephone Encounter - Brandie Lange LPN - 06/17/2024 11:04 AM EST He was seen in 06/13 and treated with Doxy. [facility]12-30-2024 Telephone encounter Note* Telephone Encounter - Radha Lawson - 06/17/2024 10:41 AM EST Patient calling in to request an order for an xray of his chest. He feels his cold going into his chest and has concerns of pneumonia. Please review and advise patient, okay to leave detailed message. Radha Lawson June 17, 2024 10:42 AM [facility]12-26-2024 NoteHNO ID: [id number] Author: CAROLANN LUCAS APRN.LEASING ASSISTANT Service: ? Author Type: Nurse Practitioner Type: Progress Notes Filed: 06/13/2024 16:18 Note Text: Subjective The history is provided by the patient. No parts consultant was used. JOHNATHON Garzon is a 68 [...] have confirmed and edited as necessary, the [facility] Review of Systems Constitutional: Negative for [...] detail warranting prompt ER evaluation. Carolann Lucas APRN.[facility]12-26-2024 History of Present illness Narrative* Carolann Lucas APRN.LEASING ASSISTANT - 06/13/2024 4:02 PM EST Subjective The history is provided by the patient. No parts consultant was used. JOHNATHON Garzon is a 68 [...] have confirmed and edited as necessary, the [facility] Review of Systems Constitutional: Negative for [...] indetail warranting prompt ER evaluation. Carolann Lucas APRN.LEASING ASSISTANT documented in this encounterGood Samaritan Hospital11-08-2024 Telephone encounter Note * Telephone Encounter - Sincere Pickard RN - 04/26/2024 12:39 PM EST Spoke with Amanda at [facility] Main lab, who states they will be able to add the hgba1c with the blood collected yesterday. [facility]11-08-2024 Miscellaneous Notes* Telephone Encounter - Sincere Pickard RN - 04/26/2024 12:39 PM EST Spoke with Amanda at [facility] Main lab, who states they will be able to add the hgba1c with the blood collected yesterday. * Telephone Encounter - Lisa Javed APRN.CNP - 04/26/2024 10:21 AM EST Please see if lab can add on A1c. His blood sugar was elevated- if not he will need to come back in. Lisa Javed APRN.ROSITA documented in this encounterGood Samaritan Hospital11-08-2024 Telephone encounter Note * Telephone Encounter - Lisa Javed APRN.CNP - 04/26/2024 10:21 AM EST Please see if lab can add on A1c. His blood sugar was elevated- if not he will need to come back in. Lisa Javed APRN.CNP [facility]11-07-2024 History of Present illness Narrative* Terell [...] PATIENT PRESENTS WITH AN IMPLANTABLE OR ATTACHED MOBILE DEVICE ENGINEER: No RADIOLOGY DEPARTMENT: General X-ray: Exam(s) Completed: Chest X-Ray PERIPHERAL IV DATA: Not applicable SIGNED BY: RT Buster(Filippo) April 25, 2024 2:05 PM documented in this encounterGood Samaritan Hospital11-07-2024 NoteHNO ID: [id number] Author: TERELL CUETO RT(R) Service: Radiology Author [...] PATIENT PRESENTS WITH AN IMPLANTABLE OR ATTACHED MOBILE DEVICE ENGINEER: No RADIOLOGY DEPARTMENT: General X-ray: Exam(s) Completed: Chest X-Ray PERIPHERAL IV DATA: Not applicable SIGNED BY: RT Buster(Filippo) April 25, 2024 2:05 [facility]11-07-2024 NoteHNO ID: [id number] Author: LISA JAVED APRN.LEASING ASSISTANT Service: ? Author Type: Nurse Practitioner Type: Progress Notes Filed: 04/25/2024 14:07 Note Text: 04/25/2024 Patient presents with: Dizziness: X 1 week SUBJECTIVE: This is a 68 year old that is here today for Above Complaints. For the last week has had dizziness. Described as wearing bifocals and trying to walk down the stairs. [place] like he was spinning around this morning. [...] Normal gait SKIN Sk (more content not included)...[facility]11-07-2024 History of Present illness Narrative* Lisa Javed APRN.ROSITA - 04/25/2024 1:21 PM EST 04/25/2024 Patient presents with: Dizziness: X 1 week SUBJECTIVE: This is a 68 year old that is here today for Above Complaints. For the last week has had dizziness. Described as wearing bifocals and trying to walk down the stairs. [place] like he was spinning around this morning. [...] suspicious rashes or lesions to exposed skin [place]: Horizontal, torsional and up beating nystagmus elicited [...] ER with red flag symptoms Lisa Javed APRN.LEASING ASSISTANT Prescription instructions reviewed with patient as applicable. [...] Level: 4 - Moderate documented in this encounterGood Samaritan Hospital11-07-2024 Telephone encounter Note * Telephone Encounter [...] has NOT been evaluated by doctor (or CREATIVE ASSISTANT/PA) for this (Exception: Dizziness caused by heat [...] in sweat; fatigue Protocols used: Dizziness - Wzigmgkohquexyd-GWIIT-II [facility]11-07-2024 Miscellaneous Notes* Telephone Encounter - Allison [...] has NOT been evaluated by doctor (or CREATIVE ASSISTANT/PA) for this (Exception: Dizziness caused by heat [...] in sweat; fatigue Protocols used: Dizziness - Dfxjmtooareaxcz-TQCCM-KS documented in this encounterGood Samaritan Hospital10-23-2024 History of Present illness Narrative* Rojas [...] Right 1988 LAPS SURG CHOLECYSTECTOMY W/CHOLANGIOGRAPHY 2004 [facility] - Dr. 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 EPIGASTRIC HERNIA,REDUC 07/19/2023 umbilical TONSILLECTOMY PRIMARY/SECONDARY <AGE 12 Tonsillectomy Family History FAMILY HISTORY Problem Relation Age of Onset Hypertension Mother Heart Mother Stroke Mother Allergies Mother Breast Cancer Mother Heart Father of [place] Allergies Father Asthma Daughter Allergies Sister Allergies [...] TABLET Rojas Dominguez MD documented in this encounterGood Samaritan Hospital10-23-2024 NoteHNO ID: [id number] Author: ROJAS DOMINGUEZ MD Service: ? Author [...] Right 1988 LAPS SURG CHOLECYSTECTOMY W/CHOLANGIOGRAPHY 2004 [facility] - Dr. 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 EPIGASTRIC HERNIA,REDUC 07/19/2023 umbilical TONSILLECTOMY PRIMARY/SECONDARY Tonsillectomy Family History FAMILY HISTORY Problem Relation Age of Onset Hypertension Mother Heart Mother Stroke Mother Allergies Mother Breast Cancer Mother Heart Father of [place] Allergies Father Asthma Daughter Allergies Sister Allergies [...] y/o Review of Symp (more content not included)...[facility] 03-13-2024 NoteHNO ID: [id number] Author: JAGJIT CHEEMA MD Service: ? Author [...] Lymph 1.00 - 4.00 k/uL 0.82 (L) [place]% % 7.5 Abs [place] <0.87 k/uL 0.31 Eosin% % 1.4 Abs [...] 07/20/2016 MAC COLONOSCOPY 01/25/20 (more content not included)...[facility] 03-13-2024 History of Present illness [...] Lymph 1.00 - 4.00 k/uL 0.82 (L) [place]% % 7.5 Abs [place] <0.87 k/uL 0.31 Eosin% % 1.4 Abs [...] Right 1988 LAPS SURG CHOLECYSTECTOMY W/CHOLANGIOGRAPHY 2004 [facility] - Dr. 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 EPIGASTRIC HERNIA,REDUC 07/19/2023 umbilical TONSILLECTOMY PRIMARY/SECONDARY <AGE 12 Tonsillectomy FAMILY HISTORY Problem Relation Age of Onset Hypertension Mother Heart Mother Stroke Mother Allergies Mother Breast Cancer Mother Heart Father of [place] Allergies Father Asthma Daughter Allergies Sister Allergies [...] stable. Jagjit Cheema MD documented in this encounterGood Samaritan Hospital09-20-2024 Telephone encounter Note * Telephone Encounter - Asuncion Robertson LPN - 03/08/2024 4:41 PM EDT Phoned patient and went over results, notes from Dr Cheema with understanding. Patient will take 2 tablets of potassium with supper tonight and keep his appt on Monday. [facility]09-20-2024 Miscellaneous Notes* Telephone Encounter - Asuncion [...] No signs of diverticulitis. documented in this encounterGood Samaritan Hospital09-20-2024 Telephone encounter Note * Telephone Encounter - Jagjit Cheema MD - 03/08/2024 4:[address] was ok. Potassium was slightly low. I have him taking potassium. Can take an extra dose today, keep follow up next week. No signs of diverticulitis. [facility]09-20-[facility] History of Present illness Narrative* Fanny [...] PATIENT PRESENTS WITH AN IMPLANTABLE OR ATTACHED MOBILE DEVICE ENGINEER: No ALLERGIES: Reviewed and unchanged CONTRAST ALLERGY: [...] 2024 TIME: 4:02 PM documented in this encounterGood Samaritan Hospital09-20-2024 NoteHNO ID: [id number] Author: FANNY SINGH RT(R) Service: Radiology Author [...] PATIENT PRESENTS WITH AN IMPLANTABLE OR ATTACHED MOBILE DEVICE ENGINEER: No ALLERGIES: Reviewed and unchanged CONTRAST ALLERGY: [...] March 08, 2024 TIME: 4:02 [facility]09-20-2024 NoteHNO ID: [id number] Author: JAGJIT CHEEMA MD Service: ? Author [...] his focus and finish sentences Still seeing [facility]. Still on adrogen therapy per [...] Right 1988 LAPS SURG CHOLECYSTECTOMY W/CHOLANGIOGRAPHY 2004 [facility] - Dr. Bales OPEN REPAIR OF ROTATOR CUFF ACUTE Rotator cuff repair PERCUTANEOUS CORONARY INTERVENTION 2007 stent to LAD REPAIR EPIGASTRIC HERNIA,REDUC 07/19/2023 umbilical TONSILLECTOMY PRIMARY/SECONDARY Tonsillectomy FAMILY HISTORY Problem Relation Age of Onset Hypertension Mother Heart Mother Stroke Mother Allergies Mother Breast Cancer Mother Heart Father of [place] Allergies Father Asthma Daughter Allergies Sister Allergies Brother Allergies Daughter Social History Tobacco Use Smoking status: Former Current packs/day: 0.00 Average packs/day: 2.0 packs/day for 5.0 years (10.0 ttl pk-yrs) Types: Cigarettes Start date: 02/08/1982 Quit date: 02/08/1987 Years since quittin.1 Smokeless tobacco: Former Types: Chew Quit date: 12/03/2017 (more content not included)...[facility] 03-08-2024 History of Present illness [...] Right 1988 LAPS SURG CHOLECYSTECTOMY W/CHOLANGIOGRAPHY 2004 [facility] - Dr. 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 EPIGASTRIC HERNIA,REDUC 07/19/2023 umbilical TONSILLECTOMY PRIMARY/SECONDARY <AGE 12 Tonsillectomy FAMILY HISTORY Problem Relation Age of Onset Hypertension Mother Heart Mother Stroke Mother Allergies Mother Breast Cancer Mother Heart Father of [place] Allergies Father Asthma Daughter Allergies Sister Allergies [...] tenderness ASSESSMENT/PLAN: 1. 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 2. Hyperlipidemia, unspecified hyperlipidemia type [...] RTO early next weeks. documented in this encounterGood Samaritan Hospital07-23-2024 Instructions* Patient Instructions* Beverley Gutierrez APRN.CNP - 01/09/2024 3:52 PM EDT 1) Paxlovid ordered 2) Hold atorvastatin while on medication 3) Rest & plenty of fluids 4) See Susan 01/26/24 documented in this encounterGood Samaritan Hospital07-23-2024 NoteHNO ID: [id number] Author: BEVERLEY GUTIERREZ APRN.CNP Service: ? Author Type: Clinical Nurse Specialist Type: Progress Notes Filed: 01/09/2024 15:53 Note Text: This Team Access Model visit is a phone encounter. It required patient-provider interaction for the medical decision making as documented below. Chief Reason For Appointment No chief complaint on file. [facility]-pfl and people from was sick. Lazaro Garzon [...] - 12/25/2013 Comment: 02/29/20 admit ED to [facility] chest pain,HUGGINS . EKG no changes. Stopped [...] Right 1988 LAPS SURG CHOLECYSTECTOMY W/CHOLANGIOGRAPHY 2004 [facility] - Dr. Bales OPEN REPAIR OF ROTATOR [...] No current facility-administered medicat (more content not included)...[facility]07-23-2024 History of Present illness Narrative* Beverley Gutierrez APRN.ROSITA - 01/09/2024 3:40 PM EDT This Team Access Model visit is a phone encounter. It required patient-provider interaction for themedical decision making as documented below. Chief Reason For Appointment No chief complaint on file. [facility]sqan-by-keh and people from was sick. Lazaro Garzon [...] - 12/25/2013 Comment: 02/29/20 admit ED to [facility] chest pain,HUGGINS . EKG no changes. Stopped [...] Right 1988 LAPS SURG CHOLECYSTECTOMY W/CHOLANGIOGRAPHY 2004 [facility] - Dr. Bales OPEN REPAIR OF ROTATOR [...] after confirming email address documented in this encounterGood Samaritan Hospital07-12-2024 History of Present illness Narrative* Jagjit [...] Right 1988 LAPS SURG CHOLECYSTECTOMY W/CHOLANGIOGRAPHY 2004 [facility] - Dr. 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 EPIGASTRIC HERNIA,REDUC 07/19/2023 umbilical TONSILLECTOMY PRIMARY/SECONDARY <AGE 12 Tonsillectomy FAMILY HISTORY Problem Relation Age of Onset Hypertension Mother Heart Mother Stroke Mother Allergies Mother Breast Cancer Mother Heart Father of [place] Allergies Father Asthma Daughter Allergies Sister Allergies [...] RTO in one month documented in this encounterGood Samaritan Hospital06-26-2024 Telephone encounter Note * Telephone Encounter - Sara Maria LPN - 12/13/2023 4:08 PM EDT Pt notified of results & all instructions, pt voiced understanding. Sara Maria LPN [facility]06-26-[facility]24 Miscellaneous Notes* Telephone Encounter - Sara [...] - 12/13/2023 12:29 PM EDT Dyana with [facility] hospital calls to request order be changed to CT A Chest with and without contrast. Couldn't find that order to pend. Requests order be faxed back to [phone]. Brenda Louis RN * Telephone Encounter - Reynaldo Zarate LPN - 12/13/2023 11:26 AM EDT Phoned [facility], order faxed. Pt can be scanned as soon as possible. Reynaldo Zarate LPN * Telephone Encounter - Susan Kerr APRN.ROSITA - 12/13/2023 11:01 AM EDT Pt schedule for stat CT at [place] at 3:00. Can we see if [facility] has anything sooner? Susan Kerr APRN.ROSITA documented in this encounterGood Samaritan Hospital06-26-2024 Telephone encounter Note * Telephone Encounter [...] to the ER with any severe symptoms. [facility]06-26-2024 Telephone encounter Note* Telephone Encounter - Reynaldo Zarate LPN - 12/13/2023 1:09 PM EDT Order faxed. Will leave encounter open until results recieved. Reynaldo Zarate LPN [facility]06-26-2024 Telephone encounter Note* Telephone Encounter - Susan Kerr APRN.CNP - 12/13/2023 12:45 PM EDT Order placed. Please fax, as requested. [facility]-26-[facility] Telephone encounter Note* Telephone Encounter - Brenda Louis RN - 12/13/2023 12:29 PM EDT Dyana with [facility] hospital calls to request order be changed to CT A Chest with and without contrast. Couldn't find that order to pend. Requests order be faxed back to [phone]. Brenda Louis RN [facility]06-26-2024 Telephone encounter Note* Telephone Encounter - Reynaldo Zarate LPN - 12/13/2023 11:26 AM EDT Phoned [facility], order faxed. Pt can be scanned as soon as possible. Reynaldo Zarate LPN [facility]06-26-[facility]24 Telephone encounter Note* Telephone Encounter - Susan Kerr APRN.CNP - 12/13/2023 11:01 AM EDT Pt schedule for stat CT at [place] at 3:00. Can we see if [facility] has anything sooner? Susan Kerr APRN.ROSITA [facility]06-26-[facility]24 Instructions* Patient Instructions* Susan Kerr APRN.CNP - 12/13/2023 10:08 AM EDT Get stat CT documented in this encounterGood Samaritan Hospital06-26-2024 History of Present illness Narrative* Susan [...] and changing CPAP tubing driving up to [place], really hot, 'everything went black', pt lowered [...] X 2. Hx of pneumonia. Traveled to [place] a couple of weeks ago. No fevers/chills Body aches Dizziness Nausea and vomiting last week but nothing now Constipation, abdomen tenderness Wears CPAP at night Recent travel to [place] a few weeks ago Recently had pneumonia [...] Right 1988 LAPS SURG CHOLECYSTECTOMY W/CHOLANGIOGRAPHY 2004 [facility] - Dr. Bales OPEN REPAIR OF ROTATOR [...] Mother Breast Cancer Mother Heart Father of [place] Allergies Father Asthma Daughter Allergies Sister Allergies [...] agrees with the plan. documented in this encounterGood Samaritan Hospital06-14-2024 Telephone encounter Note * Telephone Encounter - Dionisio Chavez LPN - 12/01/2023 11:49 AM EDT Patient Transbi[employer]hart message requesting the following refill Refill(s) Requested: Requested Prescriptions Pending Prescriptions Disp Refills potassium chloride (K-TAB) 10 mEq tablet 180 tablet 1 Sig: Take 2 tablets by mouth once daily. ALLERGIES Allergen Reactions Sulfa (Sulfonamide * Rash (home) [phone] (cell) Last Office Visit Date: 11/29/2023 Last Distance Health Visit: 10/25/2023 Future Appointment: 12/22/2023 The patients preferred pharmacy has been captured for this encounter? yes Request is for script(s) to be escript to pharmacy. Dionisio Chavez LPN [facility]06-14-2024 Miscellaneous Notes* Telephone Encounter - Dionisio Chavez LPN - 12/01/2023 11:49 AM EDT Patient [employer] message requesting the following refill Refill(s) Requested: Requested Prescriptions Pending Prescriptions Disp Refills potassium chloride (K-TAB) 10 mEq tablet 180 tablet 1 Sig: Take 2 tablets by mouth once daily. ALLERGIES Allergen Reactions Sulfa (Sulfonamide * Rash (home) [phone] (cell) Last Office Visit Date: 11/29/2023 Last [facility] Visit: 10/25/2023 Future Appointment: 12/22/2023 The patients preferred pharmacy has been captured for this encounter? yes Request is for script(s) to be escript to pharmacy. Dionisio Chavez LPN documented in this encounterGood Samaritan Hospital06-12-2024 History of Present illness Narrative* Jagjit [...] Right 1988 LAPS SURG CHOLECYSTECTOMY W/CHOLANGIOGRAPHY 2004 [facility] - Dr. 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 EPIGASTRIC HERNIA,REDUC 07/19/2023 umbilical TONSILLECTOMY PRIMARY/SECONDARY <AGE 12 Tonsillectomy FAMILY HISTORY Problem Relation Age of Onset Hypertension Mother Heart Mother Stroke Mother Allergies Mother Breast Cancer Mother Heart Father of [place] Allergies Father Asthma Daughter Allergies Sister Allergies [...] 20) Jagjit Cheema MD documented in this encounterGood Samaritan Hospital05-08-2024 History of Present illness Narrative* Jagjit [...] visit. Either the patient or their legal senior account representative has been informed of the risks [...] Right 1988 LAPS SURG CHOLECYSTECTOMY W/CHOLANGIOGRAPHY 2004 [facility] - Dr. 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 EPIGASTRIC HERNIA,REDUC 07/19/2023 umbilical TONSILLECTOMY PRIMARY/SECONDARY <AGE 12 Tonsillectomy FAMILY HISTORY Problem Relation Age of Onset Hypertension Mother Heart Mother Stroke Mother Allergies Mother Breast Cancer Mother Heart Father of [place] Allergies Father Asthma Daughter Allergies Sister Allergies [...] with more than 50% of the total vpns-gf-fvmd time of the visit in counseling / coordination of care. documented in this encounterGood Samaritan Hospital03-21-2024 Miscellaneous Notes* Telephone Encounter - Jagjit Cheema MD - 09/07/2023 7:57 AM EDT Labs are stable other than sugar being up. Recheck A1c. documented in this encounterGood Samaritan Hospital03-19-2024 History of Present illness Narrative* Jagjit [...] Right 1988 LAPS SURG CHOLECYSTECTOMY W/CHOLANGIOGRAPHY 2004 [facility] - Dr. 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 EPIGASTRIC HERNIA,REDUC 07/19/2023 umbilical TONSILLECTOMY PRIMARY/SECONDARY <AGE 12 Tonsillectomy FAMILY HISTORY Problem Relation Age of Onset Hypertension Mother Heart Mother Stroke Mother Allergies Mother Breast Cancer Mother Heart Father of [place] Allergies Father Asthma Daughter Allergies Sister Allergies [...] TESTOSTERONE TOTAL 3. 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 Beverley Cruz LPN. documented in this encounterGood Samaritan Hospital02-07-2024 History of Past illness Narrative* Problem [...] of this encounter (statuses as of 09/05/2023) [facility] History of Past illness Narrative* Problem [...] of this encounter (statuses as of 09/06/2023) [facility] History of Past illness Narrative* Problem [...] of this encounter (statuses as of 09/07/2023) [facility]01-31-2024 NoteHNO ID: [id number] Author: MISTY JACKSON APRN.MONOGRAM OPERATOR Service: Anesthesiology Author Type: Nurse Video Clerk Type: Anesthesia Procedure Notes Filed: 07/19/2023 09:22 Note Text: ANESTHESIOLOGY PROCEDURE NOTE Airway General Information Procedure Start Time/Medication Administration: 07/19/2023 9:07 AM Patient location during procedure: OR Timeout Performed Pre-procedure: timeout performed Consent Obtained: Yes 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 MONOGRAM OPERATOR: Misty Jackson APRN.MONOGRAM OPERATOR Performed by: MONOGRAM OPERATOR Indications and Patient Condition Indications for airway [...] and doubled bath blanket SIGNATURE: Misty Jackson APRN.MONOGRAM OPERATOR PATIENT NAME: Lazaro Garzon DATE: July 19, 2023 TIME: 9:21 AM CSN: [id number] Telephone encounter Note* Telephone Encounter - Omaira Gallegos - 06/30/2023 11:00 AM EST 07/19/2023 UMBILICAL HERNIA REPAIR FORD [facility]01-12-2024 Miscellaneous Notes* Telephone Encounter - Omaira Gallegos - 06/30/2023 11:00 AM EST 07/19/2023 UMBILICAL HERNIA REPAIR FORD documented in this encounterGood Samaritan Hospital12-21-2023 Miscellaneous Notes* Telephone Encounter - Beverley [...] you. Beverley Cruz LPN. documented in this encounterGood Samaritan Hospital12-04-2023 Discharge summary Author Vivian Mcintyre [facility] May 22, 2023 1:02pm Note Date/Time May 22, 2023 1 :02pm [facility] Physical Therapy [facility] [address] [place] [address] / REHABILITATION SERVICES DISCHARGE SUMMARY MR#: [id number] Acct: [id number] Name: LAZARO GARZON Rep #: [id number] : 1955 67 From: Vivian Mcintyre PT, Cert. MDT Referring Dr.: OUT OF [facility] DOCTOR Status: REG RCR Insurance: MEDICARE PART A B [facility] Discharge Summary D/C summary: It has been [...] please feel free to call me at [phone]. Thank you for the referral of thispatient. Sincerely, Vivian Mcintyre, PT, Cert MDT Balance/Gait/Functional tests Balance/Special Test Scores Lower Extremity Functional Score: 76 <Electronically signed by Vivian Mcintyre PT Cert. MDT> 05/22/23 1302 CC: Dr. Jagjit Cheema MD; ARVIND TELLEZ ~ SIVAN Signed [facility] Work Phone: 1(541) 997-467110-16-2023 History of Present illness Narrative* Shannon Vázquez, [...] 03, 2023 10:58 AM documented in this encounterGood Samaritan Hospital08-07-2023 History of Present illness Narrative* Jagjit [...] Right 1988 LAPS SURG CHOLECYSTECTOMY W/CHOLANGIOGRAPHY 2004 [facility] - Dr. Bales OPEN REPAIR OF ROTATOR CUFF ACUTE Rotator cuff repair PERCUTANEOUS CORONARY INTERVENTION 2006 stent to LAD TONSILLECTOMY PRIMARY/SECONDARY <AGE 12 Tonsillectomy FAMILY HISTORY Problem Relation Age of Onset Hypertension Mother Heart Mother Stroke Mother Allergies Mother Breast Cancer Mother Heart Father of [place] Allergies Father Asthma Daughter Allergies Sister Allergies [...] MG TABLET 6. 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 Jagjit Cheema MD documented in this encounterGood Samaritan Hospital07-18-2023 Miscellaneous Notes* Telephone Encounter - Vee Weinberg LPCC - 01/03/2023 2:36 PM EDT Behavioral Health Social Work Progress Note Patient identified for [facility] from: PCP Reason for referral: Resources Behavioral Health Resources: Psychology - talk therapy [facility] encounter type: Telephone Encounter Attempts to Outreach: 1 attempt Referral made: Psychology - Internal, Psychology - External Psychology-Internal referral type: Therapy Psychology-External referral type: Therapy Patient Discharged?: No Phone call placed today that went to Personaling. Left my contact information and brief nature of call. Initial outreach also completed via Phoneplus sending list of in network providers with insurance. AARON Zuñiga-S January 03, 2023 documented in this encounterGood Samaritan Hospital07-06-2023 Miscellaneous Notes* Telephone Encounter - Beverley [...] you. Beverley Cruz LPN documented in this encounterGood Samaritan Hospital07-03-2023 History of Present illness Narrative* Jagjit [...] showed mild hypokalemia and leukocytosis. Went back [facility] on 12/15/22 with a 104 temp. Admitted. [...] Right 1988 LAPS SURG CHOLECYSTECTOMY W/CHOLANGIOGRAPHY 2004 [facility] - Dr. Bales OPEN REPAIR OF ROTATOR CUFF ACUTE Rotator cuff repair PERCUTANEOUS CORONARY INTERVENTION 2007 stent to LAD TONSILLECTOMY PRIMARY/SECONDARY <AGE 12 Tonsillectomy FAMILY HISTORY Problem Relation Age of Onset Hypertension Mother Heart Mother Stroke Mother Allergies Mother Breast Cancer Mother Heart Father of [place] Allergies Father Asthma Daughter Allergies Sister Allergies [...] DIFF Jagjit Cheema MD documented in this encounterGood Samaritan Hospital06-30-2023 Discharge summary Author Nahum Dias [facility] December 16, 2022 1:25am Note Date/Time December 15, 2022 7:31 pm [facility] Medical Records Department [address] [place] [address] Emergency Department Summary 12/15/22 MR#: [id number] Acct: [id number] Name: LAZARO GARZON Rep #:[id number] : 1955 67 From: Nahum Bagley PCP: Dr. Jagjit Cheema MD Status:ADM I N Location: [place] [address]-1 HPI History of Present Illness Chief Complaint: [...] when he takes deep breaths. [facility] Medical History Abnormal myocardial perfusion study Abnormal stress test Acute pyelonephritis Atherosclerotic heart disease of seneca coronary artery without angina pectoris BPH (benign prostatic hyperplasia) Claudication Confusion Dyspnea on exertion Essential hypertension Fibromyalgia GERD (gastroesophageal reflux disease) H/O percutaneous transluminal coronary angioplasty History of shingles HTN (hypertension) Obesity DEENA (obstructive sleep apnea) Prostate enlargement Pulmonary embolism Pure hypercholesterolemia Rectal bleeding Testosterone deficiency TIA (transient ischemic attack) Unstable angina UTI (urinary tract infection) Home Medications multivitamin,kc-gqly-ucbsfzem 27 mg-0.4 mg tablet 1 tab PO [...] 90.2 H Lymph % (Auto) 4.4 L [place] % (Auto) 4.0 Eos % (Auto) 0.7 [...] 81 mg PO DAILY Qty: 90 0RF multivitamin,ps-wvzc-vdrhjzko 1 TABLET tablet 1 tab PO DAILY [...] Provider] - Disposition Disposition: Acute Care Hospital [facility] What to do if you have Problems For any increased pain, shortness of breath, bleeding, nausea or vomiting, chestpain, or any unexpected problems, contact your Primary Care Provider. Call [facility] ([phone]) or report to the closest Emergency Room. Call 911 if necessary. 12/16/22 0125 <Electronically signed by Nahum Dias DO> Cosigner Signature (if applicable): CC: Dr. Jagjit Cheema MD ~ Signed [facility] Work Phone: 1(591) 609-880706-30-2023 Progress note Author [facility] December 16, 2022 12:19am Note Date/Time December 16, 2022 12:2 0am [facility] Medical Records Department [address] [place] [address] Progress Note - Hospitalist 12/16/2218 MR#: [id number] Acct: [id number] Name: LAZARO GARZON Rep #:[id number] : 1955 67 From: Lucy Partida MD PCP: Dr. Jagjit Cheema MD Status:ADM I N Location: [place] [address] Hospitalist Note Patient noted willingness to restart eliquis regimen. Reports to staff occasionally having intermittent palpitations. 12/16/2218 <Electronically signed by Lucy Partida MD> Cosigner Signature (if applicable): CC: ~ Signed [facility] Work Phone: 1(827) 231-154306-30-2023 History and physical note Author [facility] December 15, 2022 10:52pm Note Date/Time December 15, 2022 10:1 1pm [facility] Medical Records Department [address] [place] [address] H&P Exam - Hospitalist 12/15/222209 MR#: [id number] Acct: [id number] Name: LAZARO GARZON Rep #:[id number] : 1955 67 From: Lucy Partida MD PCP: Dr. Jagjit Cheema MD Status:ADM I N Location: [place] [address] HPI - General General Date of Admission: 12/15/22 Date of Service: 12/15/22 Chief Complaint: Recent UTI Dx, ongoing fevers, chills. HPI Narrative The patient is a 67 y/o M w/ PMHx: Hx DVT/PE, PAF/Flutter, Chronic thrombocytopenia, DEENA on CPAP q HS, Former tobacco use, CAD s/p PCI, HTN, HLD, GERD, Fibromyalgia, BPH, Hx TIA, Obesity who presents to the [facility] ED on 12/15/22 with history of intial [...] IV x1, Zofran 4 mg IV x1. [facility] Abnormal myocardial perfusion study Abnormal stress test Acute pyelonephritis Atherosclerotic heart disease of seneca coronary artery without angina pectoris BPH (benign prostatic hyperplasia) Claudication Confusion Dyspnea on exertion Essential hypertension Fibromyalgia GERD (gastroesophageal reflux disease) H/O percutaneous transluminal coronary angioplasty History of shingles HTN (hypertension) Obesity DEENA (obstructive sleep apnea) Prostate enlargement Pulmonary embolism Pure hypercholesterolemia Rectal bleeding Testosterone deficiency TIA (transient ischemic attack) Unstable angina UTI (urinary tract infection) Home Medications multivitamin,fe-jiov-ufneptns 27 mg-0.4 mg tablet 1 tab PO [...] 90.2 H, Lymph % (Auto) 4.4 L, [place] % (Auto) 4.0, Eos % (Auto) 0.7, [...] Hx TIA, Obesity who presents to the [facility] ED on 12/15/22 with history of intial [...] 08/2012, most recent repeat catheterization 2018 demonstrating seneca multivessel coronary disease and a patent LAD [...] 75 minutes. Charges/Coding Visit Charges Inpatient E&M: 30366 Init Hosp L3 12/15/22 2252 <Electronically signed by Lucy Partida MD> Cosigner Signature (if applicable): CC: Dr. Lucy Partida MD; Dr. Jagjit Cheema MD~ Signed [facility] Work Phone: 1([phone]) 472-591806-29-2023 Miscellaneous Notes* Telephone Encounter - Tamra Chau RN - 12/15/2022 6:34 PM EDT Patient's son calling to say his father was seen @ [facility] ER yesterday afternoon and diagnosed with prostatitis. He was prescribed antibiotics. This afternoon patient developed fever with shaking chills. Patient took Acetaminophen for fever at 1730 PM without effect. Temp is now increasing to 104 Disposition: ED now. Patient's son is agreeable and will transport his father to [facility]. Tamra Chau RN Reason for Disposition Fever > 103 F (39.4 C) Urine infection (MALE; cystitis, pyelonephritis, prostatitis, epididymitis, orchitis, urethritis) diagnosed recently Answer Assessment - Initial Assessment Questions 1. ANTIBIOTIC: Antibiotic prescribed 12/14 @ [facility] ER 2. DURATION: Started yesterday 3. MAIN SYMPTOM: shaking chills and fever 4. FEVER: fever started this afternoon and is increasing. T-104 one hour after taking Acetaminophen 5. OTHER SYMPTOMS: Do you have any other symptoms? (e.g., flank pain, penile discharge, scrotal pain, blood in urine) Protocols used: Recent Medical Visit for Illness Follow-up Nyca-GGRUM-PY, Urinary Tract Infection on Antibiotic Follow-up Call - [id number]-CFGYZ-GW documented in this encounterGood Samaritan Hospital06-28-2023 History of Present illness Narrative* Jagjit [...] Right 1988 LAPS SURG CHOLECYSTECTOMY W/CHOLANGIOGRAPHY 2004 [facility] - Dr. Bales OPEN REPAIR OF ROTATOR CUFF ACUTE Rotator cuff repair PERCUTANEOUS CORONARY INTERVENTION 2006 stent to LAD TONSILLECTOMY PRIMARY/SECONDARY <AGE 12 Tonsillectomy FAMILY HISTORY Problem Relation Age of Onset Hypertension Mother Heart Mother Stroke Mother Allergies Mother Breast Cancer Mother Heart Father of [place] Allergies Father Asthma Daughter Allergies Sister Allergies [...] E86.0 Jagjit Cheema MD documented in this encounterGood Samaritan Hospital05-09-2023 Miscellaneous Notes* Telephone Encounter - Allison Tavares RN - 10/25/2022 3:32 PM EDT Juliane from [facility] calls and is asking for [...] advise, Allison Tavares RN documented in this encounterGood Samaritan Hospital05-09-2023 History of Present illness Narrative* Jagjit [...] decreased ambition. 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 Not sure he can afford counseling right now. No suicidal ideation. 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 Labs were all stable. Component Latest [...] Abs Lymph 1.00 - 4.00 k/uL 1.14 [place]% % 8.6 Abs [place] <0.87 k/uL 0.42 Eosin% % 1.6 Abs [...] Right 1987 LAPS SURG CHOLECYSTECTOMY W/CHOLANGIOGRAPHY 2004 [facility] - Dr. Bales OPEN REPAIR OF ROTATOR CUFF ACUTE Rotator cuff repair PERCUTANEOUS CORONARY INTERVENTION 2006 stent to LAD TONSILLECTOMY PRIMARY/SECONDARY <AGE 12 Tonsillectomy FAMILY HISTORY Problem Relation Age of Onset Hypertension Mother Heart Mother Stroke Mother Allergies Mother Breast Cancer Mother Heart Father of [place] Allergies Father Asthma Daughter Allergies Sister Allergies [...] - stable. 3. 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 4. Atrial flutter, unspecified type (HCC) - ICD9: 427.32, ICD10: I48.92 - stable. 5. Adjustment disorder with anxious mood - ICD9: 309.24, ICD10: F43.22 - increase meds. Call if any issues. - SERTRALINE 50 MG TABLET Jagjit Cheema RTO in two months and prn. documented in this encounterGood Samaritan Hospital04-07-2023 Miscellaneous Notes* Telephone Encounter - ZENAIDA Franco - 09/23/2022 1:14 PM EDT BEHAVIORAL HEALTH SOCIAL WORK CONSULT NOTE Service Date: September 23, 2022 Patient was identified by name and Patient: Lazaro Garzon [address] [place] [address] (home) [phone] (cell) PCP: Jagjit Cheema MD [address] [place] [address] Patient identified for [facility] from: PCP Reason for referral: Resources Behavioral Health Resources: Psychology - talk therapy [facility] encounter type: Telephone Encounter Assessment: Referral made to engage patient experiencing an Adjustment Disorder and to provide therapy resources. [facility] reviewed patient's chart and insurance to identify resources. Patient stated they are experiencing stress. Patient denies suicidal or homicidal ideation. Patient identified he does not want toengage in therapy at this time. [facility] provided his contact information to patient if [...] 15 minutes ZENAIDA Franco-S documented in this encounterGood Samaritan Hospital04-06-2023 History of Present illness Narrative* Jagjit [...] down. No suicidal ideation. Not sleeping frequently. 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 Not current lung issues. [...] Right 1988 LAPS SURG CHOLECYSTECTOMY W/CHOLANGIOGRAPHY 2004 [facility] - Dr. Bales OPEN REPAIR OF ROTATOR CUFF ACUTE Rotator cuff repair PERCUTANEOUS CORONARY INTERVENTION 2006 stent to LAD TONSILLECTOMY PRIMARY/SECONDARY <AGE 12 Tonsillectomy FAMILY HISTORY Problem Relation Age of Onset Hypertension Mother Heart Mother Stroke Mother Allergies Mother Breast Cancer Mother Heart Father of [place] Allergies Father Asthma Daughter Allergies Sister Allergies [...] 25 HYDROXY 6. 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- ICD9: 414.01, ICD10: [...] HYDROXY Jagjit Cheema MD documented in this encounterGood Samaritan Hospital03-21-2023 Miscellaneous Notes* Telephone Encounter - Beverley Cruz LPN - 09/06/2022 12:12 PM EDT Please see Z Plane message. * Telephone Encounter - Beverley Cruz [...] Medication has not been refilled since 08/13/2020, [employer]ane message sent for reason why. Please advise. Thank you. Beverley Cruz LPN documented in this encounterGood Samaritan Hospital02-21-2023 Procedure [facility]02-21-2023 History and physical note Author Dr. Alfred [facility] August 09, 2022 11:07am Note Date/Time August 08, 2022 8:23am [facility] Medical Records Department [address] [place] [address] History & Physical Exam 08/08/22 0821 MR#: [id number] Acct: [id number] Name: LAZARO GARZON Rep #:[id number] : 1955 66 From: Willis Alfred MD PCP: Dr. Jagjit Cheema MD Status:REG S DC Location: [facility] History and Physical Date of Admission: 08/09/22 [facility] [address] [place] [address] OFFICE VISIT Date of Service:? 08/03/22 MR#: [id number] Acct: [id number] Name:LAZARO GUTIERREZ Rep #: [id number] : 1955 ? Provider: ?SARA Gooden Age/Sex:? 66/M Location: [facility] Status: Signed HPI HPI History of [...] (%) 98 ? Intake Visit Reasons:?UPDATE H&P Automobile Damage Appraiser Required: No Is patient in pain?: No Allergies Sulfa (Sulfonamide Antibiotics) Allergy (Verified 08/03/22 08:43) Unknown Medications multivitamin,si-anwf-krshjkvt 27 mg-0.4 mg tablet 1 tab PO [...] test Acute pyelonephritis Atherosclerotic heart disease of seneca coronary artery without angina pectoris BPH (benign [...] function LVEF: by LV gram 60 % [place] Multivessel CAD (LAD: Proximal Stent: Patent) RECOMMENDATIONS [...] most recent cardiac catheterization from 2018 demonstrated seneca multivessel CAD, and a patent stent in [...] I25.1 0 - Atherosclerotic heart disease of seneca coronary artery without angina pectoris, I48.92 - [...] cardioversion on 08/09/2022 ? ? 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 Jagjit Cheema MD~ Signed [facility] Work Phone: 1(403) 381-161301-04-2023 Miscellaneous Notes* Telephone Encounter - Fouzia Cope LPN - 06/22/2022 11:06 AM EST Patient phones requesting refills as follows: Requested Prescriptions Pending Prescriptions Disp Refills potassium chloride (K-TAB) 10 mEq tablet 180 tablet 1 Sig: Take 2 tablets by mouth once daily. CRUZITO-11/29/21 Labs-04/29/22 NOV-none med filled 11/16/21 Please review and advise. Fouzia Cope LPN documented in this encounterGood Samaritan Hospital09-24-2022 Miscellaneous Notes* Telephone Encounter - Grace Darden Ma - 03/12/2022 9:20 AM EDT Last office visit: 11/29/21 F/u scheduled: none Grace Darden Ma documented in this encounterGood Samaritan Hospital09-06-2022 Miscellaneous Notes* Telephone Encounter - Grace Darden Ma - 02/22/2022 2:22 PM EDT Last office visit: 11/29/21 F/u scheduled: none Grace Darden Ma documented in this encounterGood Samaritan Hospital09-06-2022 Miscellaneous Notes* Telephone Encounter - Grace Darden Ma - 02/22/2022 1:56 PM EDT Last office visit: 11/29/21 F/u scheduled: none Grace Darden Ma documented in this encounterGood Samaritan Hospital08-27-2022 History of Present illness Narrative* Carolann Lucas APRN.ROSITA - 02/12/2022 11:04 AM EDT Subjective The history is provided by the patient. No parts consultant was used. JOHNATHON Garzon is a 66 [...] have confirmed and edited as necessary, the [facility] Review of Systems Constitutional: Negative for [...] evaluation. Carolann Lucas APRN.ROSITA documented in this encounterGood Samaritan Hospital06-21-2022 Miscellaneous Notes* Telephone Encounter - Sandy Velez LPN - 12/07/2021 10:20 AM EDT Pt called and states he had COVID then started with Shingles. He is taking medication for shingles and now he is having problems with his sinuses and starting to have problems with his ears. Pt instructed would need to be seen and evaluated. Pt states he is in [place] and will go to a stat care there. Sandy Velez LPN documented in this encounterGood Samaritan Hospital06-13-2022 Miscellaneous Notes* Telephone Encounter - Kira [...] Please call if/when sent. documented in this encounterGood Samaritan Hospital06-13-2022 Miscellaneous Notes* Telephone Encounter - Asuncion [...] any issues or worsening. documented in this encounterGood Samaritan Hospital06-13-2022 History of Present illness Narrative* Shannon [...] 29, 2021 1:05 PM documented in this encounterGood Samaritan Hospital04-28-2022 History of Present illness Narrative* Lyssa [...] history is provided by the patient. No parts consultant was used. Hypertension Review of Systems Constitutional: [...] Right 1988 LAPS SURG CHOLECYSTECTOMY W/CHOLANGIOGRAPHY 2004 [facility] - Dr. Bales OPEN REPAIR OF ROTATOR [...] Mother Breast Cancer Mother Heart Father of [place] Allergies Father Asthma Daughter Allergies Sister Allergies [...] plan. Kisha Wen APRN.ROSITA documented in this encounterGood Samaritan Hospital03-25-2022 Instructions* Patient Instructions* Oliva Gutierrez PA-C [...] 10 to 15 minutes. documented in this encounterGood Samaritan Hospital03-25-2022 History of Present illness Narrative* Oliva [...] Right 1988 LAPS SURG CHOLECYSTECTOMY W/CHOLANGIOGRAPHY 2004 [facility] - Dr. Bales OPEN REPAIR OF ROTATOR CUFF ACUTE Rotator cuff repair PERCUTANEOUS CORONARY INTERVENTION 2006 stent to LAD TONSILLECTOMY PRIMARY/SECONDARY <AGE 12 Tonsillectomy FAMILY HISTORY Problem Relation Age of Onset Hypertension Mother Heart Mother Stroke Mother Allergies Mother Breast Cancer Mother Heart Father of [place] Allergies Father Asthma Daughter Allergies Sister Allergies [...] results and radiologist's interpretation, available in the [facility] health record. Images were reviewed with the [...] Level: 3 - Low documented in this encounterGood Samaritan Hospital03-25-2022 History of Present illness Narrative* Ema [...] 10, 2021 4:32 PM documented in this encounterGood Samaritan Hospital03-20-2021 History of Present illness Narrative* Abraham [...] 5 days. Resume other medications. MD ESEQUIEL Godoy/[id number] SSI File#: [id number] END OF DOCUMENT / CHANGE LOG FOLLOWS Last Edited By Elec. Signed By Abraham Rosa MD #LANETTEUTH Abraham Rosa MD #LANETTEUTH on 09/14/2020 09:32 ET on 09/14/2020 09:32 ET Revision Number - 2 ^^^ Verified/Reviewed by 09/14/20 KEL[facility] PATIENT NAME: LAZARO GARZON MEDICAL REC #: [id number] [place], [place] ADMIT DATE[facility] PHYSICIAN documented in this encounterGood Samaritan Hospital11-10-2020 History of Present illness Narrative* Ashwin Hernandez)Kd - 04/28/2020 4:00 PM EST documented in this encounterGood Samaritan Hospital10-01-2020 History of Present illness Narrative* Eyal [...] symptoms do not resolve. Eyal Montoya DO /[id number] SSI File#: [id number] END OF DOCUMENT / CHANGE LOG FOLLOWS Last Edited By Elec. Signed By Eyal Montoya DO #LAURENGA Eyal Montoya DO #CLAGA on 03/23/2020 08:06 ET on 03/23/2020 08:06 ET Revision Number - 2 ^^^ Verified/Reviewed by 03/23/20 Jose G06 DARRIAN [place] [facility] PATIENT NAME: LAZARO GARZON Domenic Matias MEDICAL REC #: [id number] [place], [place] ADMIT DATE: [facility] REPORT STATCARE PHYSICIAN documented in this encounterGood Samaritan Hospital04-25-2014 History of Past illness Narrative* Problem Noted Date Resolved Date Pulmonary embolism 10/11/2013 10/25/2022 Shortness of breath 02/08/2007 07/13/2018 Palpitations 09/30/2005 07/13/2018 documented as of this encounter (statuses as of 10/26/2022) [facility] of Past illness Narrative* Problem Noted Date Resolved Date Pulmonary embolism 10/11/2013 10/25/2022 Shortness of breath 02/08/2007 07/13/2018 Palpitations 09/30/2005 07/13/2018 documented as of this encounter (statuses as of 10/26/2022) [facility] of Past illness Narrative* Problem Noted Date Resolved Date Pulmonary embolism 10/11/2013 10/25/2022 Shortness of breath 02/08/2007 07/13/2018 Palpitations 09/30/2005 07/13/2018 documented as of this encounter (statuses as of 11/23/2022) [facility] of Past illness Narrative* Problem Noted Date Resolved Date Pulmonary embolism 10/11/2013 10/25/2022 Shortness of breath 02/08/2007 07/13/2018 Palpitations 09/30/2005 07/13/2018 documented as of this encounter (statuses as of 12/15/2022) [address]25[address]2014 History of Past illness Narrative* Problem Noted Date Resolved Date Pulmonary embolism 10/11/2013 10/25/2022 Shortness of breath 02/08/2007 07/13/2018 Palpitations 09/30/2005 07/13/2018 documented as of this encounter (statuses as of 12/20/2022) [address]25[address]2014 History of Past illness Narrative* Problem Noted Date Resolved Date Pulmonary embolism 10/11/2013 10/25/2022 Shortness of breath 02/08/2007 07/13/2018 Palpitations 09/30/2005 07/13/2018 documented as of this encounter (statuses as of 12/20/2022) [address]25-2014 History of Past illness Narrative* Problem Noted Date Resolved Date Pulmonary embolism 10/11/2013 10/25/2022 Shortness of breath 02/08/2007 07/13/2018 Palpitations 09/30/2005 07/13/2018 documented as of this encounter (statuses as of 12/22/2022) [place] [address]-25-2014 History of Past illness Narrative* Problem Noted Date Diagnosed Date Resolved Date Pulmonary embolism 10/11/2013 3 Shortness of breath 02/08/2007 07/13/19 19 Palpitations 09/30/2005 07/13/2018 documented as of this encounter (statuses as of 01/03/2023) [address]25-2014 History of Past illness Narrative* Problem Noted Date Diagnosed Date Resolved Date Pulmonary embolism 10/11/2013 3 Shortness of breath 02/08/2007 07/13/19 19 Palpitations 09/30/2005 07/13/2018 documented as of this encounter (statuses as of 01/04/2023) [address]25-2014 History of Past illness Narrative* Problem Noted Date Diagnosed Date Resolved Date Pulmonary embolism 10/11/2013 3 Shortness of breath 02/08/2007 07/13/19 19 Palpitations 09/30/2005 07/13/2018 documented as of this encounter (statuses as of 01/24/2023) [address]25-2014 History of Past illness Narrative* Problem Noted Date Diagnosed Date Resolved Date Pulmonary embolism 10/11/2013 Shortness of breath 02/08/2007 07/13/19 19 Palpitations 09/30/2005 07/13/2018 documented as of this encounter (statuses as of 06/09/2023) [address]23-2007 History of Past illness Narrative* Problem Noted Date Resolved Date Shortness of breath 02/08/2007 07/13/2018 Palpitations 09/30/2005 07/13/2018 documented as of this encounter (statuses as of 09/10/2021) [address]23-2007 History of Past illness Narrative* Problem Noted Date Resolved Date Shortness of breath 02/08/2007 07/13/2018 Palpitations 09/30/2005 07/13/2018 documented as of this encounter (statuses as of 10/14/2021) [address]23-2007 History of Past illness Narrative* Problem Noted Date Resolved Date Shortness of breath 02/08/2007 07/13/2018 Palpitations 09/30/2005 07/13/2018 documented as of this encounter (statuses as of 11/16/2021) [address]23-2007 History of Past illness Narrative* Problem Noted Date Resolved Date Shortness of breath 02/08/2007 07/13/2018 Palpitations 09/30/2005 07/13/2018 documented as of this encounter (statuses as of 11/22/2021) [address]23-2007 History of Past illness Narrative* Problem Noted Date Resolved Date Shortness of breath 02/08/2007 07/13/2018 Palpitations 09/30/2005 07/13/2018 documented as of this encounter (statuses as of 11/23/2021) [address]23-2007 History of Past illness Narrative* Problem Noted Date Resolved Date Shortness of breath 02/08/2007 07/13/2018 Palpitations 09/30/2005 07/13/2018 documented as of this encounter (statuses as of 11/29/2021) [address]23-2007 History of Past illness Narrative* Problem Noted Date Resolved Date Shortness of breath 02/08/2007 07/13/2018 Palpitations 09/30/2005 07/13/2018 documented as of this encounter (statuses as of 11/29/2021) [address]23-2007 History of Past illness Narrative* Problem Noted Date Resolved Date Shortness of breath 02/08/2007 07/13/2018 Palpitations 09/30/2005 07/13/2018 documented as of this encounter (statuses as of 12/14/2021) [address]23[address]2007 History of Past illness Narrative* Problem Noted Date Resolved Date Shortness of breath 02/08/2007 07/13/2018 Palpitations 09/30/2005 07/13/2018 documented as of this encounter (statuses as of 12/16/2021) [address]23[address]2007 History of Past illness Narrative* Problem Noted Date Resolved Date Shortness of breath 02/08/2007 07/13/2018 Palpitations 09/30/2005 07/13/2018 documented as of this encounter (statuses as of 02/12/2022) [address]23-2007 History of Past illness Narrative* Problem Noted Date Resolved Date Shortness of breath 02/08/2007 07/13/2018 Palpitations 09/30/2005 07/13/2018 documented as of this encounter (statuses as of 02/22/2022) [address]23-2007 History of Past illness Narrative* Problem Noted Date Resolved Date Shortness of breath 02/08/2007 07/13/2018 Palpitations 09/30/2005 07/13/2018 documented as of this encounter (statuses as of 02/22/2022) [address]23-2007 History of Past illness Narrative* Problem Noted Date Resolved Date Shortness of breath 02/08/2007 07/13/2018 Palpitations 09/30/2005 07/13/2018 documented as of this encounter (statuses as of 03/12/2022) [address]23[address]2007 History of Past illness Narrative* Problem Noted Date Resolved Date Shortness of breath 02/08/2007 07/13/2018 Palpitations 09/30/2005 07/13/2018 documented as of this encounter (statuses as of 04/21/2022) [address]23[address]2007 History of Past illness Narrative* Problem Noted Date Resolved Date Shortness of breath 02/08/2007 07/13/2018 Palpitations 09/30/2005 07/13/2018 documented as of this encounter (statuses as of 06/24/2022) [address]23[address]2007 History of Past illness Narrative* Problem Noted Date Resolved Date Shortness of breath 02/08/2007 07/13/2018 Palpitations 09/30/2005 07/13/2018 documented as of this encounter (statuses as of 09/06/2022) [facility]* Problem Noted Date Resolved Date Shortness of breath 02/08/2007 07/13/2018 Palpitations 09/30/2005 07/13/2018 documented as of this encounter (statuses as of 09/23/2022) [facility] Narrative* Problem Noted Date Resolved Date Shortness of breath 02/08/2007 07/13/2018 Palpitations 09/30/2005 07/13/2018 documented as of this encounter (statuses as of 09/23/2022) [facility] HospitalDischarge summary Author Librado Bah [facility] December 16, 2022 11:12am Note Date/Time December 16, 2022 11:0 7am [facility] Medical Records Department [address] [place] [address] Instructions for Home/Discharge Instructions 12/16/22 1106 MR#: [id number] Acct: [id number] Name: LAZARO GARZON Rep #:[id number] : 1955 67 From: Librado Bah DO [...] 81 mg PO DAILY Qty: 90 0RF multivitamin,ag-adty-poyqknxu 1 TABLET tablet 1 tab PO DAILY [...] MD; Dr. Jagjit Cheema MD ~ Signed [facility] Work Phone: Discharge summary Author Librado Bah [facility] December 16, 2022 11:32am Note Date/Time December 16, 2022 11:3 2am [facility] Medical Records Department [address] [place] [id number] Discharge Summary 12/16/22 1126 MR#: [id number] Acct: [id number] Name: LAZARO GARZON Rep #:[id number] : 1955 67 From: Librado Bah DO PCP: Dr. Jagjit Cheema MD Status:ADM I N Location: [place] [id number] Providers Date of Admission: 12/15/22 Date of [...] #6 BPH Medications at Discharge Home Medications multivitamin,rd-dida-fchpeptp 27 mg-0.4 mg tablet 1 tab PO [...] was seen in the emergency room at [facility] with complaints of elevated temperature at [...] potassium of 3.3. Patient was admitted to [place] [address] for acute cystitis, ESBL organism was suspected [...] 90.2 H, Lymph % (Auto) 4.4 L, [place] % (Auto) 4.0, Eos % (Auto) 0.7, [...] 82.1 H, Lymph % (Auto) 5.9 L, [place] % (Auto) 11.1 H, Eos % (Auto) [...] 81 mg PO DAILY Qty: 90 0RF multivitamin,sg-hihc-gcvsgvwj 1 TABLET tablet 1 tab PO DAILY [...] Self Care Charges/Coding Visit Charges Inpatient E&M: 31531 Disch Hosp 12/16/22 1132 <Electronically signed by Librado Bah DO> Cosigner Signature (if applicable): CC: Dr. Librado Bah DO; Dr. Jagjit Cheema MD~ Signed [facility] Work Phone: Evaluation note* Diagnosis Pes planus of both feet- Primary Acquired valgus deformity of right ankle Primary osteoarthritis of right [facility] Diagnosis Feeling light headed- Primary Dizziness and giddiness [facility] Diagnosis Onset Date Resolution Status Fatigue acute Atherosclerotic heart diseas e of [place] coronary artery without angina pectoris chronic Essential hypertension chron ic Presence of stent in coronary artery 2012 chronic Pure hypercholesterolemia ch ronic Testosterone deficiency vamp strap ironer kellie [facility] Work Phone: Evaluation note* Diagnosis Hypokalemia Hypopotassemia [facility] Onset Date Resolution Status Fatigue acute Atherosclerotic heart diseas e of [place] coronary artery without angina pectoris chronic Essential hypertension chron ic Presence of stent in coronary artery 2012 chronic Pure hypercholesterolemia ch ronic Testosterone deficiency vamp strap ironer kellie Fatigue acute Atherosclerotic heart diseas e of [place] coronary artery without angina pectoris chronic Essential hypertension chron ic Presence of stent in coronary artery 2012 chronic Pure hypercholesterolemia ch ronic Testosterone deficiency vamp strap ironer kellie [facility] Work Phone: Evaluation note* Diagnosis Facial pain- Primary Headache Right ear pain Otalgia, unspecified Acute right eye pain Pain in or around eye [facility] [place] [facility] Diagnosis GERD with esophagitis [facility] [place] noteNo assessment information availableW[facility] Work Phone: Evaluation note* Diagnosis Onset Date Resolution Status Atrial flutter acute Dyspnea acute Atherosclerotic heart diseas e of [place] coronary artery without angina pectoris chronic Essential hypertension chron ic Presence of stent in coronary artery 2012 chronic Pure hypercholesterolemia [facility] Work Phone: Evaluation note* Diagnosis Hypokalemia Hypopotassemia [facility] Diagnosis Onset Date Resolution Status Atrial flutter acute Dyspnea acute Atherosclerotic heart diseas e of [place] coronary artery without angina pectoris chronic Essential hypertension chron ic Presence of stent in coronary artery 2012 chronic Pure hypercholesterolemia ch ronic Atrial flutter acute Dyspnea acute Atherosclerotic heart diseas e of [place] coronary artery without angina pectoris chronic Essential hypertension chron ic Presence of stent in coronary artery 2012 chronic Pure hypercholesterolemia [facility] Work Phone: Evaluation note* Diagnosis Onset Date Resolution Status Atrial flutter acute Dyspnea acute Atherosclerotic heart diseas [place] of [place] coronary artery without angina pectoris chronic Essential hypertension chron ic Presence of stent in coronary artery 2012 chronic Pure hypercholesterolemia ch ronic Atrial flutter acute Dyspnea acute Atherosclerotic heart diseas e of [place] coronary artery without angina pectoris chronic Essential hypertension chron ic Presence of stent in coronary artery 2012 chronic Pure hypercholesterolemia ch ronic Atrial flutter acute Dyspnea acute Essential hypertension chron ic Presence of stent in coronary artery 2012 chronic Pure hypercholesterolemia [facility] Work Phone: Evaluation note* Diagnosis Bacterial sinusitis- Primary Unspecified sinusitis (chronic) Adjustment disorder with anxious mood Adjustment disorder with anxiety Essential hypertension, benign Other pulmonary embolism without acute cor pulmonale, unspecified chronicity (HCC) Hyperlipidemia, unspecified hyperlipidemia type 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 Sleep apnea, unspecified type Uncomplicated asthma, unspecified asthma severity, unspecified whether persistent Atrial flutter, unspecified type (HCC) Myalgia Mylagia and myositis, unspecified Disorder of bone, unspecified [facility] [place] [facility]* Diagnosis Essential hypertension, benign- Primary History of pulmonary embolism Personal history of pulmonary embolism 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 Atrial flutter, unspecified type (HCC) Adjustment disorder with anxious mood Adjustment disorder with anxiety [facility] Diagnosis Adjustment disorder with anxious mood Adjustment disorder with anxiety [facility] [place] [facility]* Diagnosis Urinary tract infection with hematuria, site unspecified- Primary Fever, unspecified fever cause Dehydration [facility] [place] [facility]* Diagnosis Onset Date Resolution Status Atrial flutter acute Essential hypertension chron ic Presence of stent in coronary artery 2013 chronic Pure hypercholesterolemia ch ronic Complicated urinary tract infection acute Failure of outpatient treatment acute Thrombocytopenia acute [facility] Work Phone: Evaluation note* Diagnosis Urinary tract infection without hematuria, site unspecified- Primary Hypokalemia Hypopotassemia Leukocytosis, unspecified type [facility] [place] [facility]* Diagnosis Hypokalemia Hypopotassemia [facility] [place] [facility]* Diagnosis Anxiety with depression- Primary [facility] [place] [facility]* Diagnosis Essential hypertension, benign- Primary Recurrent UTI (urinary tract infection) Urinary tract infection, site not specified Adjustment disorder with anxious mood Adjustment disorder with anxiety Fatigue, unspecified type Atrial flutter, unspecified type (HCC) 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 [facility] Diagnosis Hypokalemia Hypopotassemia [facility] [place] [facility]* Diagnosis Onset Date Resolution Status Coronary artery disease vamp strap ironer kellie Dyslipidemia chronic Essential hypertension chron ic First degree heart block chr onic Morbid obesity with BMI of 40.0-44.9, adult chronic DENEA (obstructive sleep apnea) chronic Paroxysmal atrial flutter ch ronic Thrombocytopenia chronic Preoperative cardiovascular examination noneactive [facility] Work Phone: Evaluation note* Diagnosis GERD with esophagitis [facility] Diagnosis Bacterial sinusitis- Primary Unspecified sinusitis (chronic) Testosterone deficiency Other testicular hypofunction 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 Atrial flutter, unspecified [...] constipation Unspecified constipation [facility] [place] [facility]* Diagnosis Hyperglycemia- Primary Other abnormal glucose [facility] [place] [facility]* Diagnosis Onset Date Resolution Status Coronary artery disease vamp strap ironer kellie Dyslipidemia chronic Essential hypertension chron ic First degree heart block chr onic Morbid obesity with BMI of 40.0-44.9, adult chronic DEENA (obstructive sleep apnea) chronic Paroxysmal atrial flutter ch ronic Thrombocytopenia chronic Preoperative cardiovascular examination noneactive Pre-syncope acute Coronary artery disease vamp strap ironer kellie Dyslipidemia chronic Essential hypertension chron ic First degree heart block chr onic Morbid obesity with BMI of 40.0-44.9, adult chronic DEENA (obstructive sleep apnea) chronic Paroxysmal atrial flutter ch ronic Thrombocytopenia chronic [facility] Work Phone: Evaluation note* Diagnosis ADHD (attention deficit hyperactivity disorder), combined type- Primary Attention deficit disorder with hyperactivity [facility] Diagnosis ADHD (attention deficit hyperactivity disorder), combined type- Primary Attention deficit disorder with hyperactivity Need for vaccination Need for prophylactic vaccination and inoculation against unspecified single disease [facility] [place] [facility]* Diagnosis Hypokalemia Hypopotassemia [facility] [place] [facility]* Diagnosis Chest pain on breathing- Primary Painful respiration Sinobronchitis Unspecified sinusitis (chronic) Hypokalemia Hypopotassemia [facility] [place] [facility]* Diagnosis Chronic cough- Primary Cough Chest pain on breathing Painful respiration documented in this encounter [facility] note* Diagnosis Bronchitis- Primary Bronchitis, not specified as acute or chronic Atrial flutter, unspecified type (HCC) Uncomplicated asthma, unspecified asthma severity, unspecified whether persistent Fatigue, unspecified type documented in this encounter [facility] note* Diagnosis COVID-19- Primary documented in this encounter [facility] note* Diagnosis Pain of left heel Pain in limb Pre-operative examination- Primary Preoperative examination, unspecified Adrenal nodule (HCC) Unspecified disorder of adrenal glands Uncomplicated asthma, unspecified asthma severity, unspecified whether persistent Atrial flutter, unspecified type (HCC) 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 Gastroesophageal reflux disease, [...] deficits Other polyneuropathy documented in this encounter [facility] note* Diagnosis Pre-operative examination- Primary Preoperative examination, unspecified Adrenal nodule (HCC) Unspecified disorder of adrenal glands Uncomplicated asthma, unspecified asthma severity, unspecified whether persistent Atrial flutter, unspecified type (HCC) 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 Gastroesophageal reflux disease, [...] deficits Other polyneuropathy 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- Primary Hyperlipidemia, unspecified [...] quadrant abdominal pain [facility] [place] [facility]* Diagnosis Pre-operative examination- Primary Preoperative examination, unspecified Adrenal nodule (HCC) Unspecified disorder of adrenal glands Uncomplicated asthma, unspecified asthma severity, unspecified whether persistent Atrial flutter, unspecified type (HCC) 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 Gastroesophageal reflux disease, [...] quadrant abdominal pain [facility] [place] [facility]* Diagnosis Pre-operative examination- Primary Preoperative examination, unspecified Adrenal nodule (HCC) Unspecified disorder of adrenal glands Uncomplicated asthma, unspecified asthma severity, unspecified whether persistent Atrial flutter, unspecified type (HCC) 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 Gastroesophageal reflux disease, [...] Diarrhea, unspecified type [facility] [place] [facility]* Diagnosis Pain Generalized pain Pre-operative examination- Primary Preoperative examination, unspecified Adrenal nodule (HCC) Unspecified disorder of adrenal glands Uncomplicated asthma, unspecified asthma severity, unspecified whether persistent Atrial flutter, unspecified type (HCC) 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 Gastroesophageal reflux disease, [...] deficits Other polyneuropathy [facility] [place] [facility]* Diagnosis Other pulmonary embolism without acute cor pulmonale, unspecified chronicity (HCC) Chest pain, unspecified type Pre-operative examination- Primary Preoperative examination, unspecified Adrenal nodule (HCC) Unspecified disorder of adrenal glands Uncomplicated asthma, unspecified asthma severity, unspecified whether persistent Atrial flutter, unspecified type (HCC) 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 Gastroesophageal reflux disease, [...] deficits Other polyneuropathy [facility] [place] [facility]* Diagnosis Pain of right heel Pain in limb Pre-operative examination- Primary Preoperative examination, unspecified Adrenal nodule (HCC) Unspecified disorder of adrenal glands Uncomplicated asthma, unspecified asthma severity, unspecified whether persistent Atrial flutter, unspecified type (HCC) 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 Gastroesophageal reflux disease, [...] deficits Other polyneuropathy [facility] [place] [facility]* Diagnosis Pre-operative examination- Primary Preoperative examination, unspecified Adrenal nodule (HCC) Unspecified disorder of adrenal glands Uncomplicated asthma, unspecified asthma severity, unspecified whether persistent Atrial flutter, unspecified type (HCC) 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 Gastroesophageal reflux disease, [...] unspecified whether persistent [facility] [place] [facility]* Diagnosis Pre-operative examination- Primary Preoperative examination, unspecified Adrenal nodule (HCC) Unspecified disorder of adrenal glands Uncomplicated asthma, unspecified asthma severity, unspecified whether persistent Atrial flutter, unspecified type (HCC) 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 Gastroesophageal reflux disease, [...] Shortness of breath [facility] [place] [facility]* Diagnosis Pre-operative examination- Primary Preoperative examination, unspecified Adrenal nodule (HCC) Unspecified disorder of adrenal glands Uncomplicated asthma, unspecified asthma severity, unspecified whether persistent Atrial flutter, unspecified type (HCC) 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 Gastroesophageal reflux disease, [...] Shortness of breath [facility] [place] [facility] Diagnosis Pre-operative examination- Primary Preoperative examination, unspecified Adrenal nodule (HCC) Unspecified disorder of adrenal glands Uncomplicated asthma, unspecified asthma severity, unspecified whether persistent Atrial flutter, unspecified type (HCC) 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 Gastroesophageal reflux disease, [...] Other abnormal glucose [facility] [place] [facility] Diagnosis Pre-operative examination- Primary Preoperative examination, unspecified Adrenal nodule (HCC) Unspecified disorder of adrenal glands Uncomplicated asthma, unspecified asthma severity, unspecified whether persistent Atrial flutter, unspecified type (HCC) 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 Gastroesophageal reflux disease, [...] Unspecified sinusitis (chronic) documented [facility] [place] [facility]* Diagnosis Pre-operative examination- Primary Preoperative examination, unspecified Adrenal nodule (HCC) Unspecified disorder of adrenal glands Uncomplicated asthma, unspecified asthma severity, unspecified whether persistent Atrial flutter, unspecified type (HCC) 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 Gastroesophageal reflux disease, [...] acute or chronic [facility] [place] [facility] Diagnosis Pre-operative examination- Primary Preoperative examination, unspecified Adrenal nodule (HCC) Unspecified disorder of adrenal glands Uncomplicated asthma, unspecified asthma severity, unspecified whether persistent Atrial flutter, unspecified type (HCC) 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 Gastroesophageal reflux disease, [...] acute or chronic [facility] [place] [facility] Diagnosis Pre-operative examination- Primary Preoperative examination, unspecified Adrenal nodule (HCC) Unspecified disorder of adrenal glands Uncomplicated asthma, unspecified asthma severity, unspecified whether persistent Atrial flutter, unspecified type (HCC) 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 Gastroesophageal reflux disease, [...] Shortness of breath [facility] [place] [facility] Diagnosis Pre-operative examination- Primary Preoperative examination, unspecified Adrenal nodule (HCC) Unspecified disorder of adrenal glands Uncomplicated asthma, unspecified asthma severity, unspecified whether persistent Atrial flutter, unspecified type (HCC) 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 Gastroesophageal reflux disease, [...] glucose Hypokalemia Hypopotassemia [facility] [place] [facility]* Diagnosis Pre-operative examination- Primary Preoperative examination, unspecified Adrenal nodule (HCC) Unspecified disorder of adrenal glands Uncomplicated asthma, unspecified asthma severity, unspecified whether persistent Atrial flutter, unspecified type (HCC) 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 Gastroesophageal reflux disease, [...] polyneuropathy Hypokalemia Hypopotassemia documented [facility] [place] [facility]* Diagnosis Pre-operative examination- Primary Preoperative examination, unspecified Adrenal nodule (HCC) Unspecified disorder of adrenal glands Uncomplicated asthma, unspecified asthma severity, unspecified whether persistent Atrial flutter, unspecified type (HCC) 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 Gastroesophageal reflux disease, [...] glucose Hypokalemia Hypopotassemia documented [facility] [place] [facility]* Diagnosis Pre-operative examination- Primary Preoperative examination, unspecified Adrenal nodule (HCC) Unspecified disorder of adrenal glands Uncomplicated asthma, unspecified asthma severity, unspecified whether persistent Atrial flutter, unspecified type (HCC) 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 Gastroesophageal reflux disease, [...] Bacterial pneumonia, unspecified [facility] [place] [facility] Diagnosis Pre-operative examination- Primary Preoperative examination, unspecified Adrenal nodule (HCC) Unspecified disorder of adrenal glands Uncomplicated asthma, unspecified asthma severity, unspecified whether persistent Atrial flutter, unspecified type (HCC) 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 Gastroesophageal reflux disease, [...] Essential hypertension, benign [facility] [place] [facility]* Diagnosis Pre-operative examination- Primary Preoperative examination, unspecified Adrenal nodule (HCC) Unspecified disorder of adrenal glands Uncomplicated asthma, unspecified asthma severity, unspecified whether persistent Atrial flutter, unspecified type (HCC) 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 Gastroesophageal reflux disease, [...] deficits Other polyneuropathy 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- Primary Hyperlipidemia, unspecified hyperlipidemia type Atrial flutter, unspecified type (HCC) Sleep apnea, unspecified type Gastric intestinal metaplasia History of pulmonary embolism Personal history of pulmonary embolism History of asthma Personal history of other diseases of respiratory system Fatigue, unspecified type [facility] [place] [facility]* Diagnosis Pre-operative examination- Primary Preoperative examination, unspecified Adrenal nodule (HCC) Unspecified disorder of adrenal glands Uncomplicated asthma, unspecified asthma severity, unspecified whether persistent (HCC) Atrial flutter, unspecified type (HCC) 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 Gastroesophageal reflux disease, [...] Primary Thrombocytopenia, unspecified [facility] [place] [facility] Diagnosis Pre-operative examination- Primary Preoperative examination, unspecified Adrenal nodule (HCC) Unspecified disorder of adrenal glands Uncomplicated asthma, unspecified asthma severity, unspecified whether persistent (HCC) Atrial flutter, unspecified type (HCC) 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 Gastroesophageal reflux disease, [...] Essential hypertension, benign [facility] [place] [facility] Diagnosis Pre-operative examination- Primary Preoperative examination, unspecified Adrenal nodule (HCC) Unspecified disorder of adrenal glands Uncomplicated asthma, unspecified asthma severity, unspecified whether persistent (HCC) Atrial flutter, unspecified type (HCC) 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 Gastroesophageal reflux disease, [...] Anxiety with depression [facility] [place] [facility] Diagnosis Pre-operative examination- Primary Preoperative examination, unspecified Adrenal nodule (HCC) Unspecified disorder of adrenal glands Uncomplicated asthma, unspecified asthma severity, unspecified whether persistent (HCC) Atrial flutter, unspecified type (HCC) 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 Gastroesophageal reflux disease, [...] GERD with esophagitis [facility] [place] [facility] Diagnosis Pre-operative examination- Primary Preoperative examination, unspecified Adrenal nodule (HCC) Unspecified disorder of adrenal glands Uncomplicated asthma, unspecified asthma severity, unspecified whether persistent (HCC) Atrial flutter, unspecified type (HCC) 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 Gastroesophageal reflux disease, [...] Thrombocytopenia Thrombocytopenia, unspecified documented in this encounter [facility] note* Diagnosis Pre-operative examination- Primary Preoperative examination, unspecified Adrenal nodule (HCC) Unspecified disorder of adrenal glands Uncomplicated asthma, unspecified asthma severity, unspecified whether persistent (HCC) Atrial flutter, unspecified type (HCC) 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 Gastroesophageal reflux disease, [...] breath Acute cough [facility] [place] [facility] Diagnosis Pre-operative examination- Primary Preoperative examination, unspecified Adrenal nodule (HCC) Unspecified disorder of adrenal glands Uncomplicated asthma, unspecified asthma severity, unspecified whether persistent (HCC) Atrial flutter, unspecified type (HCC) 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 Gastroesophageal reflux disease, [...] apnea, unspecified type 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 Class 2 obesity with body mass index (BMI) of 38.0 to 38.9 in adult, unspecified obesity type, unspecified whether serious comorbidity present Attention deficit disorder, unspecified type documented in this encounter [facility] note* Diagnosis Pre-operative examination- Primary Preoperative examination, unspecified Adrenal nodule (HCC) Unspecified disorder of adrenal glands Uncomplicated asthma, unspecified asthma severity, unspecified whether persistent (HCC) Atrial flutter, unspecified type (HCC) 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 Gastroesophageal reflux disease, [...] polyneuropathy Hypokalemia Hypopotassemia documented in this encounter [facility] note* Diagnosis Pre-operative examination- Primary Preoperative examination, unspecified Adrenal nodule (HCC) Unspecified disorder of adrenal glands Uncomplicated asthma, unspecified asthma severity, unspecified whether persistent (HCC) Atrial flutter, unspecified type (HCC) 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 Gastroesophageal reflux disease, [...] rectum and anus documented in [facility] Author Lucy Partida [facility] December 15, 2022 10:52pm Note Date/Time December 15, 2022 10:[address] [place] [address] Medical Records Department [address] [place] [id number] H&P Exam - Hospitalist 12/15/22 2210 MR#: [id number] Acct: [id number] Name: LAZARO GARZON Rep #:[id number] : 1955 67 From: Lucy Partida MD PCP: Dr. Jagjit Cheema MD Status:ADM I N Location: [place] [address] HPI - General General Date of Admission: 12/15/22 Date of Service: 12/15/22 Chief Complaint: Recent UTI Dx, ongoing fevers, chills. HPI Narrative The patient is a 67 y/o M w/ PMHx: Hx DVT/PE, PAF/Flutter, Chronic thrombocytopenia, DEENA on CPAP q HS, Former tobacco use, CAD s/p PCI, HTN, HLD, GERD, Fibromyalgia, BPH, Hx TIA, Obesity who presents to the [facility] ED on 12/15/22 with history of intial [...] IV x1, Zofran 4 mg IV x1. [facility] Medical History Abnormal myocardial perfusion study Abnormal stress test Acute pyelonephritis Atherosclerotic heart disease of seneca coronary artery without angina pectoris BPH (benign prostatic hyperplasia) Claudication Confusion Dyspnea on exertion Essential hypertension Fibromyalgia GERD (gastroesophageal reflux disease) H/O percutaneous transluminal coronary angioplasty History of shingles HTN (hypertension) Obesity DEENA (obstructive sleep apnea) Prostate enlargement Pulmonary embolism Pure hypercholesterolemia Rectal bleeding Testosterone deficiency TIA (transient ischemic attack) Unstable angina UTI (urinary tract infection) Home Medications multivitamin,[id number] 27 mg-0.4 mg tablet 1 tab PO [...] 90.2 H, Lymph % (Auto) 4.4 L, [place] % (Auto) 4.0, Eos % (Auto) 0.7, [...] Hx TIA, Obesity who presents to the [facility] ED on 12/15/22 with history of intial [...] 08/2012, most recent repeat catheterization 2017 demonstrating seneca multivessel coronary disease and a patent LAD [...] 75 minutes. Charges/Coding Visit Charges Inpatient E&M: 65625 Init Hosp L3 12/15/22 2252 <Electronically signed by Lucy Partida MD> Cosigner Signature (if applicable): CC: Dr. Lucy Partida MD; Dr. Jagjit Cheema MD~ Signed [facility] Work Phone: Hospital Discharge instructionsAmbulatory Orders* Nutrition Referral Location: None Selected [facility] Work Phone: Reason for referral (narrative)* Diagnostic Procedure Only (Urgent) - Closed Specialty Diagnoses / Procedures Referred By Contac t Referred To Contact XR IMAGING Diagnoses Pain of left heel Procedures XR FOOT GENERAL 3V AP/LAT/OBL LEFT RADEX FOOT COMPLETE MINIMUM 3 VIEWS Anabelle Tom APRN.LEASING ASSISTANT [address] [place] [address] [place] [address] Referral ID Status Reason Start Date Expiration Date V isits Requested Visits Authorized [id number] Closed Auto-Generated Referral Patient Cleared - INN Insurance Found 04/03/2023 05/02/2024 [address] [facility] for referral (narrative)* Diagnostic Procedure Only (Routine) - Closed Specialty Diagnoses / Procedures Referred By Contac t Referred To Contact XR IMAGING Diagnoses Pain Procedures XR FOOT GENERAL 3V AP/LAT/OBL RIGHT RADEX FOOT COMPLETE MINIMUM 3 VIEWS Oliva Gutierrez PA-C [address] [place] [address] [place] [address] Referral ID Status Reason Start Date Expiration Date V isits Requested Visits Authorized [id number] Closed Auto-Generate d Referral 09/08/2021 10/08/2022 1 1 * Diagnostic Procedure Only (Routine) - Closed Specialty Diagnoses / Procedures Referred By Contac t Referred To Contact XR IMAGING Diagnoses Pain Procedures XR ANKLE GENERAL 3V AP/LAT/OBL RIGHT RADEX ANKLE COMPLETE MINIMUM 3 VIEWS Oliva Gutierrez PA-C [address] [place] [address] [place] [address] Referral ID Status Reason Start Date Expiration Date V isits Requested Visits Authorized [id number] Closed Auto-Generate d Referral 09/08/2021 10/08/2022 [address] [facility] for referral (narrative)No reason for referral information availableWGrand [facility] Work Phone: Resujk for visit Narrative* Diagnostic Procedure Only (Urgent) - Closed Specialty Diagnoses / Procedures Referred By Contac t Referred To Contact XR IMAGING Diagnoses Pain of left heel Procedures XR FOOT GENERAL 3V AP/LAT/OBL LEFT RADEX FOOT COMPLETE MINIMUM 3 VIEWS Anabelle Tom APRN.CNP [address] [place] [address] [place] [address] Referral ID Status Reason Start Date Expiration Date V isits Requested Visits Authorized [id number] Closed Auto-Generated Referral Patient Cleared - INN Insurance Found 04/03/2023 05/02/2024 1 1 [facility] Summary Purpose Family History Relationship Condition Age at Onset Recorded Date/T shukri mother Coronary artery disease Unknown Hypertension Unknown History of coronary artery bypass surgery Unknown father Hypertension Unknown Myocardial infarction Unknown grandfather Myocardial infarction Unknown grandmother Malignant neoplasm Unknown grandfather Coronary artery disease Unknown Advance Directives Documents on File Type Date Recorded Patient Mailmaster Expl anation Advance Directive(s) 07/20/2016 7:44 AM Advance Directive(s) 05/10/2016 5:01 PM Advance Directive(s) 06/05/2012 1:03 PM Advance Directive Response Recorded Date/ Time Advance Directives No April 5:24pm Living Will Yes February 29, 2020 1:43am Power of Tubing Mill Setter Yes February 1:43am Documents on File Type Date Recorded Patient Mailmaster Expl anation Advance Directive(s) 06/05/2012 1:03 PM Advance Directive Response Recorded Date/ Time Name of Medical Power of Tubing Mill Setter JACQUES MENDEZ R, February 12, 2022 11:34am Advance Directives No April 5:24pm Living Will Yes February 12 11:34am Power of Tubing Mill Setter Yes February 12 11:34am Advance Directive Response Recorded Date/ Time Name of Medical Power of Tubing Mill Setter JACQUES MENDEZ R, February 12, 2022 10:34am Advance Directives No April 4:24pm Living Will Yes February 12 10:34am Power of Tubing Mill Setter Yes February 12 10:34am Advance Directive Response Recorded Date/ Time Name of Medical Power of Tubing Mill Setter JACQUES MENDEZ R, February 12, 2022 10:34am Name of Medical Power of Tubing Mill Setter Karin Garzon May 07, 2022 11:33am Advance Directives No April 4:24pm Living Will Yes May 07 11:33am Power of Tubing Mill Setter Yes May 07, 2022 11:33am Advance Directive Response Recorded Date/ Time Name of Medical Power of Tubing Mill Setter Karin Garzon May 07, 2022 11:33am Advance Directives No April 4:24pm Living Will Yes May 07, 11:33am Power of Tubing Mill Setter Yes May 07, 2022 11:33am Advance Directive Response Recorded Date/ Time Advance Directives No April 5:24pm Living Will No December 15, 2022 7:07pm Power of Tubing Mill Setter No December 15 7:07pm Advance Directive Response Recorded Date/ Time Advance Directives No April 5:24pm Living Will No December 15, 2022 11:33pm Power of Tubing Mill Setter No December 15 11:33pm Advance Directive Response Recorded Date/ Time Advance Directives No April 4:24pm Living Will No December 15, 2022 10:33pm Power of Tubing Mill Setter No December 15 10:33pm Documents on File Type Date Recorded Patient Mailmaster Expl anation Advance Directive(s) 06/05/2012 1:03 PM Advance Directive Response Recorded Date/ Time Living Will No December 15, 2022 11:33pm Do you have a Healthcare Power of Tubing Mill Setter? No December 15, 2022 11:33pm Do you have a Healthcare Power of Tubing Mill Setter? Yes October 28, 2024 10:55am Advance Directives No January 14 10:22am Advance Directive Response Recorded Date/ Time Living Will No December 15, 2022 11:33pm Do you have a Healthcare Power of Tubing Mill Setter? No December 15, 2022 11:33pm Do you have a Healthcare Power of Tubing Mill Setter? Yes October 28, 2024 10:55am Do you have a Healthcare Power of Tubing Mill Setter? Yes November 20, 2024 10:51am Name of Medical Power of Tubing Mill Setter Lucila Dey November 20, 2024 10:51am Advance Directives No January 14 10:22am Chief Complaint and Reason for Visit Chief Complaint Admit Date 6 M FU August 16, 2024 10:25am GI Bleed October 28, 2024 9:35a m sob November 20, 2024 10:25 am Reason for Visit Admit Date Atherosclerotic heart diseas e of seneca coronary artery without angina pectoris August 16, 2024 10:25am Atrial flutter August 16, 2024 10:25am Essential hypertension August 16 10:25am Pure hypercholesterolemia August 16, 2024 10:25am Chief Complaint Cervical spine 6 M FU Reason for Visit Fatigue Atherosclerotic heart disease of seneca coronary artery without angina pectoris Essential hypertension Presence of stent in coronary artery Pure hypercholesterolemia Testosterone deficiency Chief Complaint Cervical spine 6 M FU 6 wk FU Reason for Visit Fatigue Atherosclerotic heart disease of seneca coronary artery without angina pectoris Essential hypertension Presence of stent in coronary artery Pure hypercholesterolemia Testosterone deficiency Fatigue Atherosclerotic heart disease of seneca coronary artery without angina pectoris Essential hypertension Presence of stent in coronary artery Pure hypercholesterolemia Testosterone deficiency Chief Complaint 6 M FU 6 wk FU HEAD Reason for Visit Fatigue Atherosclerotic heart disease of seneca coronary artery without angina pectoris Essential hypertension Presence of stent in coronary artery Pure hypercholesterolemia Testosterone deficiency Fatigue Atherosclerotic heart disease of seneca coronary artery without angina pectoris Essential hypertension Presence of stent in coronary artery Pure hypercholesterolemia Testosterone deficiency Chief Complaint HEAD TWO ORDERING LAURENT/INT LABS AND ORDER PSA Chief Complaint HEAD TWO ORDERING LAURENT/INT LABS AND ORDER PSA 6 M FU Reason for Visit Atrial flutter Dyspnea Atherosclerotic heart disease of seneca coronary artery without angina pectoris Essential hypertension Presence of stent in coronary artery Pure hypercholesterolemia Chief Complaint HEAD TWO ORDERING DEYSIINT LABS AND ORDER PSA 6 M FU Chest pain Reason for Visit Atrial flutter Dyspnea Atherosclerotic heart disease of seneca coronary artery without angina pectoris Essential hypertension Presence of stent in coronary artery Pure hypercholesterolemia Chief Complaint HEAD TWO ORDERING LAURENT/INT LABS AND ORDER PSA 6 M FU Chest pain DYSPNEA AFIB; CAD Reason for Visit Atrial flutter Dyspnea Atherosclerotic heart disease of seneca coronary artery without angina pectoris Essential hypertension Presence of stent in coronary artery Pure hypercholesterolemia Chief Complaint TWO ORDERING LAURENT/IN T LABS AND ORDER PSA 6 M FU Chest pain DYSPNEA AFIB; CAD 1 M FU E ORDER Reason for Visit Atrial flutter Dyspnea Atherosclerotic heart disease of seneca coronary artery without angina pectoris Essential hypertension Presence of stent in coronary artery Pure hypercholesterolemia Atrial flutter Dyspnea Atherosclerotic heart disease of seneca coronary artery without angina pectoris Essential hypertension Presence of stent in coronary artery Pure hypercholesterolemia Chief Complaint TWO ORDERING DEYSIIN T LABS AND ORDER PSA 6 M FU Chest pain DYSPNEA AFIB; CAD 1 M FU E ORDER UPDATE H&P Atrial fibrillation AFIB Atrial fibrillation Atrial fibrillation Reason for Visit Atrial flutter Dyspnea Atherosclerotic heart disease of seneca coronary artery without angina pectoris Essential hypertension Presence of stent in coronary artery Pure hypercholesterolemia Atrial flutter Dyspnea Atherosclerotic heart disease of seneca coronary artery without angina pectoris Essential hypertension [...] Admit Date Atherosclerotic heart diseas e of seneca coronary artery without angina pectoris August 16, 2024 10:25am Atrial flutter August 16, 2024 10:25am Essential hypertension August 16 10:25am Pure hypercholesterolemia August 16, 2024 10:25am Atherosclerotic heart diseas e of seneca coronary artery without angina pectoris November 28, [...] IVCON CT ANGIOGRAPHY CHEST W/CONTRAST/NONCONTRAST Susan Kerr, PARK KEEPER.LEASING ASSISTANT [address] [place] [address] [place] [address] Referral ID Status Reason Start Date Expiration Date Visits Requested Visits Authorized [id number] Pending Review Auto-Generat ed Referral 12/13/2023 01/11/2025 1 1 Specialty Diagnoses / Procedures Referred By Contac t Referred To Contact CT IMAGING Diagnoses Chest pain on breathing Procedures CT CHEST W IVCON PE DIAGNOSTIC COMPUTED TOMOGRAPHY THORAX W/CONTRAST Susan Kerr, PARK KEEPER.LEASING ASSISTANT [address] [place] [address] [place] [address] Referral ID Status Reason Start Date Expiration Date Visits Requested Visits Authorized [id number] Authorized Financial Clearance Not Required 12/13/2023 01/11/2025 1 1 Specialty Diagnoses / Procedures Referred By Contac t Referred To Contact CT IMAGING Diagnoses Left lower quadrant abdominal pain Procedures CT ABD/PEL W IVCON CT ABD & PELVIS W/CONTRAST Jagjit Cheema MD [address] [place] [address] [place] [address] Referral ID Status Reason Start Date Expiration Date V isits Requested Visits Authorized [id number] Closed Financial Clearance Not Required 03/08/2024 04/07/2025 2 2 Specialty Diagnoses / Procedures Referred By Contac t Referred To Contact CT IMAGING Diagnoses Diarrhea, unspecified type Left lower quadrant abdominal pain Procedures CT ABD/PEL W IVCON CT ABD & PELVIS W/CONTRAST Jagjit Cheema MD [address] [place] [address] [place] [address] Referral ID Status Reason Start Date Expiration Date Visits Requested Visits Authorized [id number] New Request Auto-Generat ed Referral 03/08/2024 04/07/2025 1 1 Additional Source Comments (unrecognized sect ion and content) No Status Records FoundNo Status Records FoundNo Status Records FoundNo Status Records FoundNo Status Records FoundNo Status Records FoundNo Status Records Found INFORMATION SOURCE (unrecogn ized section and content) DATE CREATED AUTHOR 12/05/2017 [facility] DATE CREATED AUTHOR AUTHOR'S ORGANIZ ATION 08/29/2019 [facility] ([place]) DATE CREATED AUTHOR AUTHOR'S ORGANIZ ATION 08/07/2021 [facility] DATE CREATED AUTHOR AUTHOR'S ORGANIZ ATION 07/20/2023 [facility] DATE CREATED AUTHOR AUTHOR'S ORGANIZ ATION 03/11/2024 [facility] DATE CREATED AUTHOR AUTHOR'S ORGANIZ ATION 01/03/2025 [facility] DATE CREATED AUTHOR AUTHOR'S ORGANIZ ATION 01/09/2025 [facility] Source Comments (unrecognize d section and content) In the event this informatio n is protected by the Federal Confidentiality of Alcohol and Drug Abuse Patient Records regulations: The Federal rules restrict any use of the information to criminally investigate or prosecute any alcohol or drug abuse patient.[facility] the event this information is protected by the Federal Confidentiality of Alcohol and Drug Abuse Patient Records regulations: The Federal rules restrict any use of the information to criminally investigate or prosecute any alcohol or drug abuse patient.[facility] Hospital[facility] the event this information is protected by the Federal Confidentiality of Alcohol and Drug Abuse Patient Records regulations: The Federal rules restrict any use of the information to criminally investigate or prosecute any alcohol or drug abuse patient.[facility] HospitalIn the event this information is protected by the Federal Confidentiality of Alcohol and Drug Abuse Patient Records regulations: The Federal rules restrict any use of the information to criminally investigate or prosecute any alcohol or drug abuse patient.[facility] HospitalIn the event this information is protected by the Federal Confidentiality of Alcohol and Drug Abuse Patient Records regulations: The Federal rules restrict any use of the information to criminally investigate or prosecute any alcohol or drug abuse patient.[facility] Hospital[facility] the event this information is protected by the Federal Confidentiality of Alcohol and Drug Abuse Patient Records regulations: The Federal rules restrict any use of the information to criminally investigate or prosecute any alcohol or drug abuse patient.[facility] HospitalIn the event this information is protected by the Federal Confidentiality of Alcohol and Drug Abuse Patient Records regulations: The Federal rules restrict any use of the information to criminally investigate or prosecute any alcohol or drug abuse patient.[facility] HospitalIn the event this information is protected by the Federal Confidentiality of Alcohol and Drug Abuse Patient Records regulations: The Federal rules restrict any use of the information to criminally investigate or prosecute any alcohol or drug abuse patient.[facility] HospitalIn the event this information is protected by the Federal Confidentiality of Alcohol and Drug Abuse Patient Records regulations: The Federal rules restrict any use of the information to criminally investigate or prosecute any alcohol or drug abuse patient.[facility] HospitalIn the event this information is protected by the Federal Confidentiality of Alcohol and Drug Abuse Patient Records regulations: The Federal rules restrict any use of the information to criminally investigate or prosecute any alcohol or drug abuse patient.[facility] HospitalIn the event this information is protected by the Federal Confidentiality of Alcohol and Drug Abuse Patient Records regulations: The Federal rules restrict any use of the information to criminally investigate or prosecute any alcohol or drug abuse patient.[facility] HospitalIn the event this information is protected by the Federal Confidentiality of Alcohol and Drug Abuse Patient Records regulations: The Federal rules restrict any use of the information to criminally investigate or prosecute any alcohol or drug abuse patient.[facility] HospitalIn the event this information is protected by the Federal Confidentiality of Alcohol and Drug Abuse Patient Records regulations: The Federal rules restrict any use of the information to criminally investigate or prosecute any alcohol or drug abuse patient.[facility] HospitalIn the event this information is protected by the Federal Confidentiality of Alcohol and Drug Abuse Patient Records regulations: The Federal rules restrict any use of the information to criminally investigate or prosecute any alcohol or drug abuse patient.[facility] HospitalIn the event this information is protected by the Federal Confidentiality of Alcohol and Drug Abuse Patient Records regulations: The Federal rules restrict any use of the information to criminally investigate or prosecute any alcohol or drug abuse patient.[facility] HospitalIn the event this information is protected by the Federal Confidentiality of Alcohol and Drug Abuse Patient Records regulations: The Federal rules restrict any use of the information to criminally investigate or prosecute any alcohol or drug abuse patient.[facility] HospitalIn the event this information is protected by the Federal Confidentiality of Alcohol and Drug Abuse Patient Records regulations: The Federal rules restrict any use of the information to criminally investigate or prosecute any alcohol or drug abuse patient.[facility] HospitalIn the event this information is protected by the Federal Confidentiality of Alcohol and Drug Abuse Patient Records regulations: The Federal rules restrict any use of the information to criminally investigate or prosecute any alcohol or drug abuse patient.[facility] HospitalIn the event this information is protected by the Federal Confidentiality of Alcohol and Drug Abuse Patient Records regulations: The Federal rules restrict any use of the information to criminally investigate or prosecute any alcohol or drug abuse patient.[facility] HospitalIn the event this information is protected by the Federal Confidentiality of Alcohol and Drug Abuse Patient Records regulations: The Federal rules restrict any use of the information to criminally investigate or prosecute any alcohol or drug abuse patient.[facility] HospitalIn the event this information is protected by the Federal Confidentiality of Alcohol and Drug Abuse Patient Records regulations: The Federal rules restrict any use of the information to criminally investigate or prosecute any alcohol or drug abuse patient.[facility] HospitalIn the event this information is protected by the Federal Confidentiality of Alcohol and Drug Abuse Patient Records regulations: The Federal rules restrict any use of the information to criminally investigate or prosecute any alcohol or drug abuse patient.[facility] HospitalIn the event this information is protected by the Federal Confidentiality of Alcohol and Drug Abuse Patient Records regulations: The Federal rules restrict any use of the information to criminally investigate or prosecute any alcohol or drug abuse patient.[facility] HospitalIn the event this information is protected by the Federal Confidentiality of Alcohol and Drug Abuse Patient Records regulations: The Federal rules restrict any use of the information to criminally investigate or prosecute any alcohol or drug abuse patient.[facility] HospitalIn the event this information is protected by the Federal Confidentiality of Alcohol and Drug Abuse Patient Records regulations: The Federal rules restrict any use of the information to criminally investigate or prosecute any alcohol or drug abuse patient.[facility] HospitalIn the event this information is protected by the Federal Confidentiality of Alcohol and Drug Abuse Patient Records regulations: The Federal rules restrict any use of the information to criminally investigate or prosecute any alcohol or drug abuse patient.[facility] HospitalIn the event this information is protected by the Federal Confidentiality of Alcohol and Drug Abuse Patient Records regulations: The Federal rules restrict any use of the information to criminally investigate or prosecute any alcohol or drug abuse patient.[facility] HospitalIn the event this information is protected by the Federal Confidentiality of Alcohol and Drug Abuse Patient Records regulations: The Federal rules restrict any use of the information to criminally investigate or prosecute any alcohol or drug abuse patient.[facility] HospitalIn the event this information is protected by the Federal Confidentiality of Alcohol and Drug Abuse Patient Records regulations: The Federal rules restrict any use of the information to criminally investigate or prosecute any alcohol or drug abuse patient.[facility] HospitalIn the event this information is protected by the Federal Confidentiality of Alcohol and Drug Abuse Patient Records regulations: The Federal rules restrict any use of the information to criminally investigate or prosecute any alcohol or drug abuse patient.[facility] HospitalIn the event this information is protected by the Federal Confidentiality of Alcohol and Drug Abuse Patient Records regulations: The Federal rules restrict any use of the information to criminally investigate or prosecute any alcohol or drug abuse patient.[facility] HospitalIn the event this information is protected by the Federal Confidentiality of Alcohol and Drug Abuse Patient Records regulations: The Federal rules restrict any use of the information to criminally investigate or prosecute any alcohol or drug abuse patient.[facility] HospitalIn the event this information is protected by the Federal Confidentiality of Alcohol and Drug Abuse Patient Records regulations: The Federal rules restrict any use of the information to criminally investigate or prosecute any alcohol or drug abuse patient.[facility] HospitalIn the event this information is protected by the Federal Confidentiality of Alcohol and Drug Abuse Patient Records regulations: The Federal rules restrict any use of the information to criminally investigate or prosecute any alcohol or drug abuse patient.[facility] HospitalIn the event this information is protected by the Federal Confidentiality of Alcohol and Drug Abuse Patient Records regulations: The Federal rules restrict any use of the information to criminally investigate or prosecute any alcohol or drug abuse patient.[facility] HospitalIn the event this information is protected by the Federal Confidentiality of Alcohol and Drug Abuse Patient Records regulations: The Federal rules restrict any use of the information to criminally investigate or prosecute any alcohol or drug abuse patient.[facility] HospitalIn the event this information is protected by the Federal Confidentiality of Alcohol and Drug Abuse Patient Records regulations: The Federal rules restrict any use of the information to criminally investigate or prosecute any alcohol or drug abuse patient.[facility] HospitalIn the event this information is protected by the Federal Confidentiality of Alcohol and Drug Abuse Patient Records regulations: The Federal rules restrict any use of the information to criminally investigate or prosecute any alcohol or drug abuse patient.[facility] HospitalIn the event this information is protected by the Federal Confidentiality of Alcohol and Drug Abuse Patient Records regulations: The Federal rules restrict any use of the information to criminally investigate or prosecute any alcohol or drug abuse patient.[facility] HospitalIn the event this information is protected by the Federal Confidentiality of Alcohol and Drug Abuse Patient Records regulations: The Federal rules restrict any use of the information to criminally investigate or prosecute any alcohol or drug abuse patient.[facility] HospitalIn the event this information is protected by the Federal Confidentiality of Alcohol and Drug Abuse Patient Records regulations: The Federal rules restrict any use of the information to criminally investigate or prosecute any alcohol or drug abuse patient.[facility] HospitalIn the event this information is protected by the Federal Confidentiality of Alcohol and Drug Abuse Patient Records regulations: The Federal rules restrict any use of the information to criminally investigate or prosecute any alcohol or drug abuse patient.[facility] HospitalIn the event this information is protected by the Federal Confidentiality of Alcohol and Drug Abuse Patient Records regulations: The Federal rules restrict any use of the information to criminally investigate or prosecute any alcohol or drug abuse patient.[facility] HospitalIn the event this information is protected by the Federal Confidentiality of Alcohol and Drug Abuse Patient Records regulations: The Federal rules restrict any use of the information to criminally investigate or prosecute any alcohol or drug abuse patient.[facility] HospitalIn the event this information is protected by the Federal Confidentiality of Alcohol and Drug Abuse Patient Records regulations: The Federal rules restrict any use of the information to criminally investigate or prosecute any alcohol or drug abuse patient.[facility] HospitalIn the event this information is protected by the Federal Confidentiality of Alcohol and Drug Abuse Patient Records regulations: The Federal rules restrict any use of the information to criminally investigate or prosecute any alcohol or drug abuse patient.[facility] HospitalIn the event this information is protected by the Federal Confidentiality of Alcohol and Drug Abuse Patient Records regulations: The Federal rules restrict any use of the information to criminally investigate or prosecute any alcohol or drug abuse patient.[facility] HospitalIn the event this information is protected by the Federal Confidentiality of Alcohol and Drug Abuse Patient Records regulations: The Federal rules restrict any use of the information to criminally investigate or prosecute any alcohol or drug abuse patient.[facility] HospitalIn the event this information is protected by the Federal Confidentiality of Alcohol and Drug Abuse Patient Records regulations: The Federal rules restrict any use of the information to criminally investigate or prosecute any alcohol or drug abuse patient.[facility] HospitalIn the event this information is protected by the Federal Confidentiality of Alcohol and Drug Abuse Patient Records regulations: The Federal rules restrict any use of the information to criminally investigate or prosecute any alcohol or drug abuse patient.[facility] HospitalIn the event this information is protected by the Federal Confidentiality of Alcohol and Drug Abuse Patient Records regulations: The Federal rules restrict any use of the information to criminally investigate or prosecute any alcohol or drug abuse patient.[facility] HospitalIn the event this information is protected by the Federal Confidentiality of Alcohol and Drug Abuse Patient Records regulations: The Federal rules restrict any use of the information to criminally investigate or prosecute any alcohol or drug abuse patient.[facility] HospitalIn the event this information is protected by the Federal Confidentiality of Alcohol and Drug Abuse Patient Records regulations: The Federal rules restrict any use of the information to criminally investigate or prosecute any alcohol or drug abuse patient.[facility] HospitalIn the event this information is protected by the Federal Confidentiality of Alcohol and Drug Abuse Patient Records regulations: The Federal rules restrict any use of the information to criminally investigate or prosecute any alcohol or drug abuse patient.[facility] HospitalIn the event this information is protected by the Federal Confidentiality of Alcohol and Drug Abuse Patient Records regulations: The Federal rules restrict any use of the information to criminally investigate or prosecute any alcohol or drug abuse patient.[facility] HospitalIn the event this information is protected by the Federal Confidentiality of Alcohol and Drug Abuse Patient Records regulations: The Federal rules restrict any use of the information to criminally investigate or prosecute any alcohol or drug abuse patient.[facility] HospitalIn the event this information is protected by the Federal Confidentiality of Alcohol and Drug Abuse Patient Records regulations: The Federal rules restrict any use of the information to criminally investigate or prosecute any alcohol or drug abuse patient.[facility] HospitalIn the event this information is protected by the Federal Confidentiality of Alcohol and Drug Abuse Patient Records regulations: The Federal rules restrict any use of the information to criminally investigate or prosecute any alcohol or drug abuse patient.[facility] HospitalIn the event this information is protected by the Federal Confidentiality of Alcohol and Drug Abuse Patient Records regulations: The Federal rules restrict any use of the information to criminally investigate or prosecute any alcohol or drug abuse patient.[facility] HospitalIn the event this information is protected by the Federal Confidentiality of Alcohol and Drug Abuse Patient Records regulations: The Federal rules restrict any use of the information to criminally investigate or prosecute any alcohol or drug abuse patient.[facility] HospitalIn the event this information is protected by the Federal Confidentiality of Alcohol and Drug Abuse Patient Records regulations: The Federal rules restrict any use of the information to criminally investigate or prosecute any alcohol or drug abuse patient.[facility] HospitalIn the event this information is protected by the Federal Confidentiality of Alcohol and Drug Abuse Patient Records regulations: The Federal rules restrict any use of the information to criminally investigate or prosecute any alcohol or drug abuse patient.[facility] HospitalIn the event this information is protected by the Federal Confidentiality of Alcohol and Drug Abuse Patient Records regulations: The Federal rules restrict any use of the information to criminally investigate or prosecute any alcohol or drug abuse patient.[facility] HospitalIn the event this information is protected by the Federal Confidentiality of Alcohol and Drug Abuse Patient Records regulations: The Federal rules restrict any use of the information to criminally investigate or prosecute any alcohol or drug abuse patient.[facility] HospitalIn the event this information is protected by the Federal Confidentiality of Alcohol and Drug Abuse Patient Records regulations: The Federal rules restrict any use of the information to criminally investigate or prosecute any alcohol or drug abuse patient.[facility] HospitalIn the event this information is protected by the Federal Confidentiality of Alcohol and Drug Abuse Patient Records regulations: The Federal rules restrict any use of the information to criminally investigate or prosecute any alcohol or drug abuse patient.[facility] HospitalIn the event this information is protected by the Federal Confidentiality of Alcohol and Drug Abuse Patient Records regulations: The Federal rules restrict any use of the information to criminally investigate or prosecute any alcohol or drug abuse patient.[facility] HospitalIn the event this information is protected by the Federal Confidentiality of Alcohol and Drug Abuse Patient Records regulations: The Federal rules restrict any use of the information to criminally investigate or prosecute any alcohol or drug abuse patient.[facility] HospitalIn the event this information is protected by the Federal Confidentiality of Alcohol and Drug Abuse Patient Records regulations: The Federal rules restrict any use of the information to criminally investigate or prosecute any alcohol or drug abuse patient.[facility] HospitalIn the event this information is protected by the Federal Confidentiality of Alcohol and Drug Abuse Patient Records regulations: The Federal rules restrict any use of the information to criminally investigate or prosecute any alcohol or drug abuse patient.[facility] HospitalIn the event this information is protected by the Federal Confidentiality of Alcohol and Drug Abuse Patient Records regulations: The Federal rules restrict any use of the information to criminally investigate or prosecute any alcohol or drug abuse patient.[facility] HospitalIn the event this information is protected by the Federal Confidentiality of Alcohol and Drug Abuse Patient Records regulations: The Federal rules restrict any use of the information to criminally investigate or prosecute any alcohol or drug abuse patient.[facility] HospitalIn the event this information is protected by the Federal Confidentiality of Alcohol and Drug Abuse Patient Records regulations: The Federal rules restrict any use of the information to criminally investigate or prosecute any alcohol or drug abuse patient.[facility] HospitalIn the event this information is protected by the Federal Confidentiality of Alcohol and Drug Abuse Patient Records regulations: The Federal rules restrict any use of the information to criminally investigate or prosecute any alcohol or drug abuse patient.[facility] HospitalIn the event this information is protected by the Federal Confidentiality of Alcohol and Drug Abuse Patient Records regulations: The Federal rules restrict any use of the information to criminally investigate or prosecute any alcohol or drug abuse patient.[facility] HospitalIn the event this information is protected by the Federal Confidentiality of Alcohol and Drug Abuse Patient Records regulations: The Federal rules restrict any use of the information to criminally investigate or prosecute any alcohol or drug abuse patient.[facility] HospitalIn the event this information is protected by the Federal Confidentiality of Alcohol and Drug Abuse Patient Records regulations: The Federal rules restrict any use of the information to criminally investigate or prosecute any alcohol or drug abuse patient.[facility] HospitalIn the event this information is protected by the Federal Confidentiality of Alcohol and Drug Abuse Patient Records regulations: The Federal rules restrict any use of the information to criminally investigate or prosecute any alcohol or drug abuse patient.[facility] HospitalIn the event this information is protected by the Federal Confidentiality of Alcohol and Drug Abuse Patient Records regulations: The Federal rules restrict any use of the information to criminally investigate or prosecute any alcohol or drug abuse patient.[facility] HospitalIn the event this information is protected by the Federal Confidentiality of Alcohol and Drug Abuse Patient Records regulations: The Federal rules restrict any use of the information to criminally investigate or prosecute any alcohol or drug abuse patient.[facility] HospitalIn the event this information is protected by the Federal Confidentiality of Alcohol and Drug Abuse Patient Records regulations: The Federal rules restrict any use of the information to criminally investigate or prosecute any alcohol or drug abuse patient.[facility] HospitalIn the event this information is protected by the Federal Confidentiality of Alcohol and Drug Abuse Patient Records regulations: The Federal rules restrict any use of the information to criminally investigate or prosecute any alcohol or drug abuse patient.[facility] HospitalIn the event this information is protected by the Federal Confidentiality of Alcohol and Drug Abuse Patient Records regulations: The Federal rules restrict any use of the information to criminally investigate or prosecute any alcohol or drug abuse patient.[facility] HospitalIn the event this information is protected by the Federal Confidentiality of Alcohol and Drug Abuse Patient Records regulations: The Federal rules restrict any use of the information to criminally investigate or prosecute any alcohol or drug abuse patient.[facility] HospitalIn the event this information is protected by the Federal Confidentiality of Alcohol and Drug Abuse Patient Records regulations: The Federal rules restrict any use of the information to criminally investigate or prosecute any alcohol or drug abuse patient.[facility] Reason for Visit (unrecogniz ed section [...] & PELVIS W/CONTRAST Jagjit Cheema MD [address] [place] [address] [place] [address] Referral ID Status Reason Start Date Expiration Date V isits Requested Visits Authorized [id number] Closed Financial Clearance Not Required 03/08/2024 04/07/2025 2 2 Reason Comments Radio Gen RMP Specialty Diagnoses / Procedures Referred By Contac t Referred To Contact XR IMAGING Diagnoses Pain Procedures XR FOOT GENERAL 3V AP/LAT/OBL RIGHT RADEX FOOT COMPLETE MINIMUM 3 VIEWS Oliva Gutierrez PA-C [address] [place] [address] [place] [address] Referral ID Status Reason Start Date Expiration Date V isits Requested Visits Authorized [id number] Closed Auto-Generate d Referral 09/08/2021 10/08/2022 1 [...] MDM 60 MINUTES Jagjit Cheema MD [address] [facility] [place] [address] Phone: tel: fax: Referral ID Status Reason Start Date Expiration Date V isits Requested Visits Authorized [id number] Closed PCP Requested Referral 12/24/2024 12/24/2025 1 1 Care Teams (unrecognized sec tion and content) Work Order Sorting Clerk Relationship Specialty Start Date End Date Jagjit Cheema MD [address] [place] [address] PCP - General Family Practice 04/13/12 Work Order Sorting Clerk Relationship Specialty Start Date End Date Jagjit Cheema MD [address] [place] [id number] PCP - General Family Practice 04/13/12 Work Order Sorting Clerk Relationship Specialty [place] [address] [place] [address] [place] [address] PCP - General Family Practice 04/13/12 Work Order Sorting Clerk Relationship Specialty Start Date End Date Jagjit Cheema MD [address] [place] [address] [place] [address] PCP - General Family Practice 04/13/12 Work Order Sorting Clerk Relationship Specialty Start Date End Date Jagjit Cheema MD [address] [place] [address], [place] [address] PCP - General Family Practice 04/13/12 Work Order Sorting Clerk Relationship Specialty Start Date End Date Jagjit Cheema MD [address] [facility] [place] [address] PCP - General Family Practice 04/13/12 Work Order Sorting Clerk Relationship Specialty Start Date End Date Jagjit Cheema MD [address] [facility] [place] [address] PCP - General Family Practice 04/13/12 Work Order Sorting Clerk Relationship Specialty Start Date End Date Jagjit Cheema MD [address] [facility] [place] [address] PCP - General Family Practice 04/13/12 Work Order Sorting Clerk Relationship Specialty Start Date End Date Jagjit Cheema MD [address] [facility] [place] [address] PCP - General Family Practice 04/13/12 Work Order Sorting Clerk Relationship Specialty Start Date End Date Jagjit Cheema MD [address] [facility] [place] [address] PCP - General Family Practice 04/13/12 Work Order Sorting Clerk Relationship Specialty Start Date End Date Jagjit Cheema MD [address] [facility] [place] [address] PCP - General Family Practice 04/13/12 Work Order Sorting Clerk Relationship Specialty Start Date End Date Jagjit Cheema MD [address] [facility] [place] [address] PCP - General Family Medicine 04/13/12 Work Order Sorting Clerk Relationship Specialty Start Date End Date Jagjit Cheema MD [address] [facility] [place] [address] PCP - General Family Medicine 04/13/12 Team [...] Provider, Referring Provider Active Hussein Gramajo NP, CREATIVE ASSISTANT-C Attending Provider Active Team Status: Active Member Role Status Dates Dr. Jagjit Cheema MD Primary Care Provider Active Dr. Willis Alfred MD Attending Provider Active Team Status: Inactive Member Role Status Dates Dr. Jagjit Cheema MD Primary Care Provider, Referring Provider Active Aparna Gooden CREATIVE ASSISTANT, CREATIVE ASSISTANT-C Attending Provider Active Team Status: Active Member [...] MD Attending Provider, Emergency Provid er Active Work Order Sorting Clerk Relationship Specialty Start Date End Date Jagjit Cheema MD [address] [place], [place] [id number] PCP - General Family Medicine 04/13/12 Work Order Sorting Clerk Relationship Specialty Start Date End Date Jagjit Cheema MD [address] [place], [place] [id number] PCP - General Family Medicine 04/13/12 Work Order Sorting Clerk Relationship Specialty Start Date End Date Jagjit Cheema MD [address] [facility] [place] [address] PCP - General Family Medicine 04/13/12 Work Order Sorting Clerk Relationship Specialty Start Date End Date Jagjit Cheema MD [address] [facility] [place] [address] PCP - General Family Medicine 04/13/12 Work Order Sorting Clerk Relationship Specialty Start Date End Date Jagjit Cheema MD [address] [facility] [place] [address] PCP - General Family Medicine 04/13/12 Work Order Sorting Clerk Relationship Specialty Start Date End Date Jagjit Cheema MD [address] [facility] [place] [address] PCP - General Family Medicine 04/13/12 Work Order Sorting Clerk Relationship Specialty Start Date End Date Jagjit Cheema MD [address] [facility] [place] [address] PCP - General Family Medicine 04/13/12 Team [...] Dr. Librado Bah DO Attending Provider Active Work Order Sorting Clerk Relationship Specialty Start Date End Date Jagjit Cheema MD [address] [place] [address] PCP - General Family Medicine 04/13/12 Work Order Sorting Clerk Relationship Specialty Start Date End Date Jagjit Cheema MD [address] [place], [place] [id number] PCP - General Family Medicine 04/13/12 Work Order Sorting Clerk Relationship Specialty Start Date End Date Jagjit Cheema MD [address] [place] [address] PCP - General Family Medicine 04/13/12 Work Order Sorting Clerk Relationship Specialty Start Date End Date Jagjit Cheema MD [address] [place] [address] PCP - General Family Medicine 04/13/12 Work Order Sorting Clerk Relationship Specialty Start Date End Date Jagjit Cheema MD [address] [place], [place] [id number] PCP - General Family Medicine 04/13/12 Team Status: Active Member Role Status Dates Dr. Jagjit Cheema MD Primary Care Provider Active GEOFF SAMUELS Attending Provider Active Team Status: Inactive Member Role Status Dates Dr. Jagjit Cheema MD Primary Care Provider Active GEOFF SAMUELS Attending Provider Active Work Order Sorting Clerk Relationship Specialty Start Date End Date Jagjit Cheema MD [address] [place], [place] [id number] PCP - General Family Medicine 04/13/12 Team Status: Inactive Member Role Status Dates Dr. Jagjit Cheema MD Primary Care Provider, Referring Provider Active Aparna Gooden NP, CREATIVE ASSISTANT-C Active Dr. Flores Glover MD Attending Provider Active Team Status: Inactive Member Role Status Dates Dr. Jagjit Cheema MD Primary Care Provider Active TRAV MCGEE NP-C Attending Provider, Referring Pro vider Active Dr. Flores Glover MD Other Provider Active Work Order Sorting Clerk Relationship Specialty Start Date End Date Jagjit Cheema MD [address] [place] [address] PCP - General Family Medicine 04/13/12 Work Order Sorting Clerk Relationship Specialty Start Date End Date Jagjit Cheema MD [address] [place] [address] PCP - General Family Medicine 04/13/12 Work Order Sorting Clerk Relationship Specialty Start Date End Date Jagjit Cheema MD [address] [place] [address] PCP - General Family Medicine 04/13/12 Team Status: Inactive Member Role Status Dates Dr. Jagjit Cheema MD Primary Care Provider, Referring Provider Active Dr. Flores Glover MD Attending Provider Active Team Status: Inactive Member Role Status Dates Dr. Jagjit Cheema MD Primary Care Provider Active Dr. Sergo Preez MD Attending Provider Active Team Status: Inactive Member Role Status Dates Dr. Jagjit Cheema MD Primary Care Provider Active Dr. Flores Glover MD Attending Provider, Referring Pr ovider Active Work Order Sorting Clerk Relationship Specialty Start Date End Date Jagjit Cheema MD [address] [place] [address] PCP - General Family Medicine 04/13/12 Work Order Sorting Clerk Relationship Specialty Start Date End Date Jagjit Cheema MD [address] [place], [place] [address] PCP - General Family Medicine 04/13/12 Work Order Sorting Clerk Relationship Specialty Start Date End Date Jagjit Cheema MD [address] [place], [place] [address]171 PCP - General Family Medicine 04/13/12 Work Order Sorting Clerk Relationship Specialty Start Date End Date Jagjit Cheema MD [address] [place] [address] PCP - General Family Medicine 04/13/12 Work Order Sorting Clerk Relationship Specialty Start Date End Date Jagjit Cheema MD [address] [place], [place] [address]851 PCP - General Family Medicine 04/13/12 Work Order Sorting Clerk Relationship Specialty Start Date End Date Jagjit Cheema MD [address] [place] [address] PCP - General Family Medicine 04/13/12 Work Order Sorting Clerk Relationship Specialty Start Date End Date Jagjit Cheema MD [address] [place] [address] PCP - General Family Medicine 04/13/12 Work Order Sorting Clerk Relationship Specialty Start Date End Date Jagjit Cheema MD [address] [place] [address] PCP - General Family Medicine 04/13/12 Work Order Sorting Clerk Relationship Specialty Start Date End Date Jagjit Cheema MD [address] [place] [address] PCP - General Family Medicine 04/13/12 Work Order Sorting Clerk Relationship Specialty Start Date End Date Jagjit Cheema MD [address] [place], [place] [address] PCP - General Family Medicine 04/13/12 Work Order Sorting Clerk Relationship Specialty Start Date End Date Jagjit Cheema MD [address] [place], [place] [address]341 PCP - General Family Medicine 04/13/12 Work Order Sorting Clerk Relationship Specialty Start Date End Date Jagjit Cheema MD [address] [place], [place] [address]35[address] PCP - General Family Medicine 04/13/12 Work Order Sorting Clerk Relationship Specialty Start Date End Date Jagjit Cheema MD [address] [place] [address] PCP - General Family Medicine 04/13/12 Work Order Sorting Clerk Relationship Specialty Start Date End Date Jagjit Cheema MD [address] [place] [address] PCP - General Family Medicine 04/13/12 Work Order Sorting Clerk Relationship Specialty Start Date End Date Jagjit Cheema MD [address] [place] [address] PCP - General Family Medicine 04/13/12 Work Order Sorting Clerk Relationship Specialty Start Date End Date Jagjit Cheema MD [address] [place] [address] PCP - General Family Medicine 04/13/12 Work Order Sorting Clerk Relationship Specialty Start Date End Date Jagjit Cheema MD [address] [place] [address] PCP - General Family Medicine 04/13/12 Work Order Sorting Clerk Relationship Specialty Start Date End Date Jagjit Cheema MD [address] [place], [place] [address]37801 PCP - General Family Medicine 04/13/12 Susan Kerr APRN.LEASING ASSISTANT [address] [place] [address] Pipe [facility]ender [facility] 05/27/24 Beverley Gutierrez APRN.LEASING ASSISTANT [address] [place] [address] Pipe Bender [facility] 05/27/24 Work Order Sorting Clerk Relationship Specialty Start Date End Date Jagjit Cheema MD [address] [place] [address] PCP - General Family Medicine 04/13/12 Susan Kerr APRN.LEASING ASSISTANT [address] [facility] [place] [address] [facility] Work Order Sorting Clerk Relationship Specialty Start Date End Date Jagjit Cheema MD [address] [place] [address] PCP - General Family Medicine 04/13/12 Susan Kerr APRN.LEASING ASSISTANT [address] [facility] [place] [address] [facility] 05/27/24 Work Order Sorting Clerk Relationship Specialty Start Date End Date Jagjit Cheema MD [address] [place] [address] PCP - General Family Medicine 04/13/12 Susan Kerr APRN.LEASING ASSISTANT [address] [facility] [place] [address] [facility] 05/27/24 Work Order Sorting Clerk Relationship Specialty Start Date End Date Jagjit Cheema MD [address] [facility] [address] PCP - General Family Medicine 04/13/12 Susan Kerr APRN.LEASING ASSISTANT [address] [facility] [place] [address] Pipe [employer]ender [facility] 05/27/24 Beverley Gutierrez PARK KEEPER.LEASING ASSISTANT [address] [facility] [place] [address] [facility] 05/27/24 Work Order Sorting Clerk Relationship Specialty Start Date End Date Jagjit Cheema MD [address] [place] [address] PCP - General Family Medicine 04/13/12 Susan Kerr APRN.LEASING ASSISTANT [address] [place] [address] [facility] 05/27/24 Beverley Gutierrez PARK KEEPER.LEASING ASSISTANT [address] [place] [address] [facility] 05/27/24 Work Order Sorting Clerk Relationship Specialty Start Date End Date Jagjit Cheema MD [address] [place] [address] PCP - General Family Medicine 04/13/12 Susan Kerr PARK KEEPER.LEASING ASSISTANT [address] [facility] [place] [address] [facility] 05/27/24 Beverley Gutierrez PARK KEEPER.LEASING ASSISTANT [address] [facility] [place] [address] [facility] 05/27/24 Work Order Sorting Clerk Relationship Specialty Start Date End Date Jagjit Cheema MD [address] [place] [address] PCP - General Family Medicine 04/13/12 Susan Kerr APRN.LEASING ASSISTANT [address] [place] [address] [facility] 05/27/24 Beverley Gutierrez APRN.LEASING ASSISTANT [address] [place] [address] Pipe Bender [facility] Medicine 05/27/24 Work Order Sorting Clerk Relationship Specialty Start Date End Date Jagjit Cheema MD [address] [place] [address] PCP - General Family Medicine 04/13/12 Susan Kerr PARK KEEPER.LEASING ASSISTANT [address] [facility] [place] [address] [facility] 05/27/24 Beverley Gutierrez PARK KEEPER.LEASING ASSISTANT [address] [place] [address] [facility] 05/27/24 Work Order Sorting Clerk Relationship Specialty Start Date End Date Jagjit Cheema MD [address] [place] [address] PCP - General Family Medicine 04/13/12 Susan Kerr APRN.LEASING ASSISTANT [address] [facility] [place] [address] [facility] 05/27/24 Beverley Gutierrez PARK KEEPER.LEASING ASSISTANT [address] [place] [address] Pipe Bender [facility] 05/27/24 Work Order Sorting Clerk Relationship Specialty Start Date End Date Jagjit Cheema MD [address] [place] [address] PCP - General Family Medicine 04/13/12 Susan Kerr, PARK KEEPER.LEASING ASSISTANT [address] [place] [address] [facility] 05/27/24 Beverley Gutierrez PARK KEEPER.LEASING ASSISTANT [address] [place] [address] [facility] 05/27/[facility] Work Order Sorting Clerk Relationship Specialty Start Date End Date Jagjit Cheema MD [address] [place] [address] PCP - General Family Medicine 04/13/12 Susan Kerr, PARK KEEPER.LEASING ASSISTANT [address] [place] [address] [facility] 05/27/24 Beverley Gutierrez PARK KEEPER.LEASING ASSISTANT [address] [place] [address] [facility] 05/27/24 Work Order Sorting Clerk Relationship Specialty Start Date End Date Jagjit Cheema MD [address] [place] [address] PCP - General Family Medicine 04/13/12 uSsan Kerr, PARK KEEPER.LEASING ASSISTANT [address] [place] [address] Pipe Bender [facility] 05/27/24 Beverley Gutierrez PARK KEEPER.LEASING ASSISTANT [address] [place], [place] [address]48131 [phone] [facility] 05/27/24 Work Order Sorting Clerk Relationship Specialty Start Date End Date Jagjit Cheema MD [address] [place], [place] [address]77[address] PCP - General Family Medicine 04/13/12 Susan Kerr, PARK KEEPER.LEASING ASSISTANT [address] [place], [place] 359136 [phone] [facility] 05/27/24 Beverley Gutierrez PARK KEEPER.LEASING ASSISTANT [address] [place] [address] [facility] 05/27/24 Work Order Sorting Clerk Relationship Specialty Start Date End Date Jagjit Cheema MD [address] [place], [place] [address] PCP - General Family Medicine 04/13/12 Susan Kerr, PARK KEEPER.LEASING ASSISTANT [address] [place] [address] [facility] 05/27/24 Beverley Gutierrez PARK KEEPER.LEASING ASSISTANT [address] [place], [place] 667842 [phone] [facility] 05/27/24 Team Status: Active Member Role Status Dates Dr. Jagjit Cheema MD Primary Care Provider Active Team Status: Inactive Member Role Status Dates Dr. Jagjit Cheema MD Primary Care Provider Active Start: August 16, 2024 End: August 16, 2024 Dr. Jagjit Cheema MD Referring Provider Active Start: August 16, 2024 End: August 16, 2024 Hussein Gramajo CREATIVE ASSISTANT, CREATIVE ASSISTANT-C Attending Provider Active S tart: August 16, 2024 End: August 16, 2024 Team Status: Inactive Member Role Status Dates Dr. Jagjit Cheema MD Primary Care Provider Active Start: October 28, 2024 End: October 28, 2024 Dr. Robby Mclaughlin DO Emergency Provider Active Start: October 28, 2024 End: October 28, 2024 Work Order Sorting Clerk Relationship Specialty Start Date End Date Jagjit Cheema MD [address] [place] [address] PCP - General Family Medicine 04/13/12 Susan Kerr APRN.LEASING ASSISTANT [address] [facility] [place] [address] [facility] 05/27/24 Beverley Gutierrez PARK KEEPER.LEASING ASSISTANT [address] [place] [address] [facility] 05/27/24 Work Order Sorting Clerk Relationship Specialty Start Date End Date Jagjit Cheema MD [address] [place] [address] PCP - General Family Medicine 04/13/12 Susan Kerr APRN.LEASING ASSISTANT [address] [facility] [place] [address] [facility] 05/27/24 Beverley Gutierrez APRN.LEASING ASSISTANT [address] [place] [address] [facility] 05/27/24 Team Status: [...] 2024 End: November 28, 2024 Hussein Gramajo CREATIVE ASSISTANT, CREATIVE ASSISTANT-C Attending Provider Active S tart: November 28, [...] November 21, 2024 End: November 21, 2024 Work Order Sorting Clerk Relationship Specialty Start Date End Date Jagjit Cheema MD [address] [place] [address] PCP - General Family Medicine 04/13/12 Susan Kerr APRN.LEASING ASSISTANT [address] [facility] [place] [address] [facility] 05/27/24 Beverley Gutierrez APRN.LEASING ASSISTANT [address] [facility] [place] [address] [facility] 05/27/24 Work Order Sorting Clerk Relationship Specialty Start Date End Date Jagjit Cheema MD [address] [place] [address] PCP - General Family Medicine 04/13/12 Susan Kerr APRN.LEASING ASSISTANT [address] [facility] [place] [address] [facility] 05/27/24 Beverley Gutierrez PARK KEEPER.LEASING ASSISTANT [address] [place] [address] [facility] 05/27/24 Work Order Sorting Clerk Relationship Specialty Start Date End Date Jagjit Cheema MD [address] [facility] [place] [address] PCP - General Family Medicine 04/13/12 Susan Kerr APRN.LEASING ASSISTANT [address] [facility] [place] [address] [facility] 05/27/24 Beverley Gutierrez APRN.LEASING ASSISTANT [address] [facility] [place] [address] [facility] 05/27/24 Work Order Sorting Clerk Relationship Specialty Start Date End Date Jagjit Cheema MD [address] [place] [address] PCP - General Family Medicine 04/13/12 Susan Kerr APRN.LEASING ASSISTANT [address] [facility] [place] [address] [facility] 05/27/24 Beverley Gutierrez APRN.LEASING ASSISTANT [address] [facility] [place] [address] [facility] 05/27/24 Work Order Sorting Clerk Relationship Specialty Start Date End Date Jagjit Cheema MD [address] [facility] [place] [address] PCP - General Family Medicine 04/13/12 Susan Kerr APRN.LEASING ASSISTANT [address] [facility] [place] [address] [facility] 05/27/24 Beverley Gutierrez APRN.LEASING ASSISTANT [address] [facility] [place] [address] [facility] 05/27/24 Work Order Sorting Clerk Relationship Specialty Start Date End Date Jagjit Cheema MD [address] [facility] [place] [address] PCP - General Family Medicine 04/13/12 Susan Kerr APRN.LEASING ASSISTANT [address] [facility] [place] [address] [facility] 05/27/24 Beverley Gutierrez [facility]N.[facility] [address] [place] [address] [facility] 05/27/24 Goals (unrecognized section and content) [...] BE BASED ON THE PRIMARY CLINICAL RECORDS. [facility] [employer] [facility]. provides no warranty or guarantee of the accuracy or completeness of information in this document.
--- OUTSIDE RECORDS SUMMARY | 2025-01-30 23:42 | XMS RPT_ITS | CCD ---
Author Organization [facility] Care Team Providers Care Disability Case Manager Name Role Phone Aurora ZIMMERMAN, Sara Carter Unavailable Unavailable JAGJIT SOUZA Unavailable Unavailable ALYSAJAGJIT GUY Unavailable Unavailable JAGJIT SOUZA Unavailable Unavailable Erlin Mohr Unavailable Unavailable Hernán ZIMMERMAN, Dyana Nelson Unavailable [phone] Jagjit Cheema MD Primary Care Provider 1([facility])[phone] Dr. Jagjit Cheema Primary Care Provider 1([facility])[phone] Dr. Sergo Perez Attending Provider 1([facility])-[phone] Prebish TECHNOLOGY DIRECTOR, TECHNOLOGY DIRECTOR-C Isabel Referring Provider Dr. Jagjit Cheema Referring Provider 1([facility])[phone] Avila FISHER NP-Harper Galvin Attending Provider Jagjit Cheema MD Primary Care Provider Dr. Jagjit Cheema Primary Care Provider Jagjit Cheema MD Primary Care Provider 1([facility])[phone] Dr. Jagjit Cheema Primary Care Provider Dr. Jagjit Cheema Referring Provider 1([facility])[phone] Willis Alfred Attending Provider Jagjit Cheema MD Primary Care Provider 1([facility])[phone] SARA Gramajo NP Attending Provider Giacomo FISHER, NATALIA-Harper Braun Attending Provider Dr. Willis Alfred Referring Provider Dr. Willis Alfred Other Provider 1([facility])[phone] Shaji Wyatt Attending Provider [...] DENI, JAGJIT Sanders Primary Care Unavailable Haagen REMOTE BROADCAST TECHNICIAN.CANDLE MOLDER, Susan Unavailable Suppan REMOTE BROADCAST TECHNICIAN.CANDLE MOLDER, Beverley A Unavailable Suppan REMOTE BROADCAST TECHNICIAN.CANDLE MOLDER, Beverley A Unavailable Suppan REMOTE BROADCAST TECHNICIAN.CANDLE MOLDER, Beverley A Unavailable [phone] Dr. Jagjit Cheema MD Primary Care Provider Dr. Jagjit Cheema MD Referring Provider Hussein Christina Attending Provider Dr. Robby Mclaughlin DO Emergency Provider Dr. Robby Mclaughlin DO Attending Provider Dr. Jose Alberto Contreras MD Emergency Provider Diane CONTI, Dr. Abrams Attending Provider Gilda CONIT, Dr. Barajas Attending Provider Gilda CONTI, Dr. Barajas Referring Provider Gilda CONTI, Dr. Barajas Other Provider [phone] Yobany CONTI, Dr. Walker Attending Provider DENI, [...] Attending Unavailable SELF Referring Unavailable DENI, JAGJIT Sandres Primary Care Unavailable DENI, JAGJIT Sanders Attending Unavailable JAGJIT CHEEMA Primary Care Unavailable Jose Alberto Contreras Attending Unavailable Marland, Jagjit Primary Care Unavailable Robby Mclaughlin Attending Unavailable Deni, Jagjit Primary Care Unavailable Roof NATALIA, Hussein Galvin Attending Unavailable MarlandJagjit bagley Referring Unavailable Marland, Jagjit Primary Care Unavailable Marland, Jagjit Primary Care Unavailable Karl Vo Consulting Unavailable Karl Vo Referring Unavailable Denise Haywood Attending Unavailcuba e Jagjit Cheema Referring Unavailable Roof NATALIA, Hussein Galvin Attending Unavailable Marland, Jagjit Primary Care Unavailable Sergo Perez Attending Unavailable Marland, Jagjit Primary Care Unavailable Marland, Jagjit Primary Care Unavailable Karl Vo Attending Unavailable Karl Vo Referring Unavailable Mayelin Rodriguez Attending Unavailable Mayelin Rodriguez Referring Unavailable MarlandJagjit Primary Care Unavailable Allergies Allergy Classification Reported Allergen(s) Allergy Type Date of Onset Reaction(s) Facility Sulfonamides (antibiotic) (3 sources) Sulfonamides (Antibiotic) Drug Allergy 5 [facility] Work Phone: (3 sources) Sulfonamides (Antibiotic) drug allergy 3 [facility] Work Phone: (1 source) Sulfonamides (Antibiotic) Drug allergy (disorder) [facility] Repository (20 sources) Sulfonamides (Antibiotic); Translations: [SULFA (SULFONAMIDE ANTIBIOTICS)] Drug Allergy 5 [facility] Work Phone: (17 sources) Sulfonamides (Antibiotic) Allergy to substance 2 Unknown [facility] (1 source) Sulfonamides (Antibiotic) Drug allergy (disorder) 5 [facility] Repository Medications Current Medications Medication Drug Class(es) [...] days. Take at first signs of outbreak. [id number] 200 actuat albuterol 0.09 mg/actuat metered dose [...] TABS One tablet by mouth daily ASPIRIN [id number] Rubina Barger RN Start: 07-18-2012 take 1 tablet by dewayne th once daily ASPIRIN 81 MG TABS One tablet by mouth daily ASPIRIN 99500222958 Rubina Barger RN Comment on above: Take [...] 3:09pm Start: 07-10-2012 take 1 tablet by [facility] once daily NEXIUM 40 MG CPDR One tablet by mouth daily ESOMEPRAZOLE MAGNESIUM 77543256812 Dionisio Herrera RN Comment on above: Take 1 capsule by mo [facility] twice daily before meals. Take 1 capsule by mo [facility] two times a day before meals. [...] 1 tablet by dewayne th once daily Multivitamin,Vp-Ebsd-Bllxujam Active 1 T ABLET PO DAILY December 09, 2013 11:00pm Start: 12-10-2013 take 1 tablet by dewayne th once daily Multivitamin,Pq-Eccf-Swcdjpsd Active 1 T ABLET PO DAILY December [...] 0 01/09/2024 01/14/2024 Active polyethylene glycol 3350 225271 mg / potassium chloride 2970 mg / sodium bicarbonate 6740 mg / sodium chloride 5860 mg / sodium sulfate 64012 mg powder for oral solution (1 source) [...] by mouth daily POTASSIUM CHLORIDE DEB CR 72233588137 Willis Alfred MD Start: 01-30-2013 take 1 tablet by dewayne th once daily KLOR-CON M20 20 MEQ CR-TABS One tablet by mouth daily POTASSIUM CHLORIDE DEB CR 91493805322 Willis Alfred MD Comment on above: Take 2 tablets by mo [facility] once daily. predniSONE 20 mg oral tablet [...] 100 mg every 1 weeks TESTOSTERONE CYPIONATE 54177369273 Dyana Alvarez PA-C Start: 09-04-2013 TESTOSTERONE C YPIONATE 100 MG/ML SOLN 150 mg every 2 weeks TESTOSTERONE CYPIONATE 86631232278 Willis Alfred MD Comment on above: APPLY [...] One tablet by mouth daily ATORVASTATIN CALCIUM 49366096159 Willis Alfred MD Comment on above: Take [...] th once daily WELLBUTRIN SR 150 MG [id number] One tablet by mouth daily BUPROPION HCL 36272565777 Dyana Alvarez PA-C Start: 01-08-2015 take 1 tablet by dewayne th once daily WELLBUTRIN SR 150 MG [id number] One tablet by mouth daily BUPROPION HCL 25270416320 Dyana Alvarez PA-C Comment on above: Take [...] Start: 05-01-2018 take 1 capsule by mo [facility] once daily Cholecalciferol, Vitamin D3, (VITAMIN D) 1,000 unit cap Indications: Vitamin D deficiency Take 1 capsule by mouth once daily. 90 capsule 3 05/01/2018 Active Comment on above: Take 1 capsule by mo [facility] once daily. ciprofloxacin 500 mg oral tablet [...] One tablet by mouth daily CITALOPRAM HYDROBROMIDE 86131145660 Willis Alfred MD colchicine 0.6 mg oral tablet (6 sources) Start: 12-11-2021 take 2 tablets by mouth every hour colchicine 0.6 mg tablet Take 2 tablets by mouth, wait one hour and take the third tablet. 3 tablet 0 12/11/2021 Active Comment on above: Take 2 tablets by mo [facility], wait one hour and take the [...] Discontinued Start: 10-04-2024 take 1 tablet by [facility] once daily desvenlafaxine ER (PRISTIQ) 50 mg [...] CAPS One tablet by mouth daily DUTASTERIDE 56257952362 Dyana Alvarez PA-C enteric contrast (will be [...] by mouth daily OMEGA-3 FATTY ACIDS CAPS 37867201213 Willis Alfred MD Start: 07-18-2012 take 1 tablet by dewayne th once daily FISH OIL CAPS One tablet by mouth daily OMEGA-3 FATTY ACIDS CAPS 28856161094 Willis Alfred MD gabapentin 300 mg oral [...] / neomycin 3.5 mg/ml / polymyxin b 99071 unt/ml otic solution (17 sources) Aminoglycoside Antibacterial, Polymyxin-class Antibacterial, Corticosteroid Start: 02-12-2022 End: 04-29-2022 Neomycin-Polymyxi n-Hc 3.5-10,000-1 mg/mL-unit/mL-% solution Discontinued 4 NMA RIGHT EAR EVERY 6 HOURS February 12, 2022 12:00am April 29, 2022 11:07am Start: 02-12-2022 End: 04-29-2022 Uvyxmiuz-Kgzsotubi-Df Discon tinued 4 DRP RIGHT EAR EVERY [...] One tablet by mouth daily (STOP) LISINOPRIL [id number] Dyana Alvarez PA-C Start: 07-10-2012 End: 07-18-2012 take 1 tablet by mouth once daily LISINOPRIL 10 MG TABS One tablet by mouth daily LISINOPRIL 19835400357 Dionisio Herrera RN meclizine hydrochloride 25 mg [...] One tablet by mouth daily MONTELUKAST SODIUM 52071365851 Dionisio Herrera RN MULTIPLE VITAMINS-MINERALS (1 source) Start: take 1 tablet by mouth once daily CENTRUM SILVER TABS One tablet by mouth daily MULTIPLE VITAMINS-MINERALS 24346296226 Willis Alfred MD MULTIPLE VITAMINS-MINERALS (2 sources) Start: take 1 tablet by mouth once daily CENTRUM SILVER TABS One tablet by mouth daily MULTIPLE VITAMINS-MINERALS 94393771884 Willis Alfred MD Multivitamin,Tx-Iron- Minerals 1 TABLET [...] 5 min up to 3 X NITROGLYCERIN 78243351370 Willis Alfred MD nystatin 811660 unt/ml oral suspension (19 sources) Polyene Antifungal Start: 019 End: 019 take 540268 [IU] by mouth every six hours Nystatin 500,000 UNIT/5 ML Udc Discontinued 474723 U PO EVERY 6 HOURS 1 July 28, 2018 1:00am August 03, 2018 1:00am August 04, 2018 1:12am OMEGA-3 FATTY ACIDS CPDR (1 source) Start: 015 take 1 tablet by mouth once daily OMEGA 3 CPDR One tablet by mouth daily OMEGA-3 FATTY ACIDS CPDR 95021956330 Dyana Alvarez PA-C OMEGA-3 FATTY ACIDS CPDR (2 sources) Start: take 1 tablet by mouth once daily OMEGA 3 CPDR One tablet by mouth daily OMEGA-3 FATTY ACIDS CPDR 94341746899 Dyana Alvarez PA-C 24 hr oxybutynin chloride [...] by mouth twice daily RANEXA 500 MG [id number] One tablet by mouth twice daily RANOLAZINE 57311890681 Rubina Barger RN Start: 12-27-2012 take 1 tablet by dewayne th twice daily RANEXA 500 MG [id number]-TKG One tablet by mouth twice daily RANOLAZINE 30751507444 Rubina Barger RN Start: 12-27-2012 End: 12-28-2012 take 1 tablet by mouth twice daily RANEXA 500 MG [id number]-SCR One tablet by mouth twice daily RANOLAZINE 49083812311 Rubina Brager RN rivaroxaban 20 mg oral tablet (20 [...] TABS One tablet by mouth daily RIVAROXABAN 57372529780 Rubina Barger RN sertraline 50 mg oral [...] unspecified type , 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 , Class 2 [...] unspecified type , 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 , Class 2 [...] unspecified type , 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 , Class 2 [...] (2 sources) Long-term drug therapy; Translations: [Other terminal superintendent (current) drug therapy] Onset: 3 12-17-2012 Unclassified (3 sources) Call KAYLEE for stress appointment time Unclassified (2 sources) G47.33 - Obstructive sleep apnea (adult) (pediatric),E66.09 - Other obesity due to excess calories,Z68.39 - Body mass index [BMI] 39.0-39.9, adult,I25.10 - Atherosclerotic heart disease of flandreau coronary artery without angina pectoris Unclassified (1 [...] 07-10-2012 Episodic Other aftercare (1 source) Other fdc (current) drug therapy; Translations: [Other fdc (current) drug therapy] Onset: 12-17-2012 12-17-2012 Episodic Other aftercare (7 sources) Patient encounter status; Translations: [terminal press 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] Onset: 12-17-2012 Resolved: 07-26-2023 07-26-2023 Episodic Other aftercare (20 sources) Long-term current use of insulin; Translations: [terminal press 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] Onset: 12-17-2012 [...] Test Name Value Interpretation Reference Range Facility [facility] 12-31-2024 CNOV Office Visit (GENSWS ) LAZARO GARZON ([id number]) 1955 M Date Time Provider Department 12/31/24 8:30 AM YESICA BACON GENLUDY During your visit today, we recorded the following information about you: Temperature Pulse Blood pressure Weight 97.6 degrees 79/minute 141/83 147.4 kg Height 1.93 m Yesica Bacon APRN.CNP 12/31/2024 9:02 AM Signed HISTORY AND PHYSICAL Lazaro Garzon : 1955 REFERRING PHYSICIAN: Jagjit Cheema [address] [facility] [address] CHIEF COMPLAINT: Patient presents with: New Patient: [...] disease. >10 years ago Lazaro follows with [facility] for PAF s/p cardioversion (2022) and CAD. Last OV 12/11. Last stress test 12/11 negative for ischemia, EF: 65%. He denies CP, SOB, dizziness, palpitations, syncope, edema, recent hospitalizations Lazaro has sleep apnea c/w CPAP. Lazaro has undergone prior endoscopy. Last EGD AND colonoscopy was 11/[address] Bennett at [place]. Sedation: MAC Impression: Medium-sized hiatal hernia, irregular [...] serious comorbidity present 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 Diaphragmatic hernia without [...] treatment per (more content not included)... Normal [facility] CBC W Auto Differential pane l (Bld)on 12-24-2024 Basophils (Bld) [#/Vol] [facility] Basophils/100 WBC (Bld) 0.3 % [facility] Differential cell count method Nom (Bld) Auto [facility] Eosinophils (Bld) [#/Vol] 0.03 10*3/uL [facility] Eosinophils/100 WBC (Bld) 0.5 % [facility] Erythrocyte distribution width (RBC) [Ratio] 12.9 % 11.5 - 15.0 % [facility] Hematocrit (Bld) [Volume fraction] 45.9 % 39.0 - 51.0 % [facility] Hemoglobin (Bld) [Mass/Vol] 15.6 g/dL 13.0 - 17.0 g/dL [facility] Immature granulocytes (Bld) [#/Vol] [facility] Immature granulocytes/100 WBC (Bld) 0.2 % [facility] Interpretation and review of laboratory results Abnormal [facility] Lymphocytes (Bld) [#/Vol] 0.95 10*3/uL Low [facility] Lymphocytes/100 WBC (Bld) 16.1 % [facility] MCH (RBC) [Entitic mass] 29.4 pg 26.0 - 34.0 pg [facility] MCHC (RBC) [Mass/Vol] 34 g/dL 30.5 - 36.0 g/dL [facility] MCV (RBC) [Entitic vol] 86.6 fL 80.0 - 100.0 fL [facility] Monocytes (Bld) [#/Vol] 0.4 10*3/uL [facility] Monocytes/100 WBC (Bld) 6.8 % [facility] Neutrophils (Bld) [#/Vol] 4.49 10*3/uL [facility] Neutrophils/100 WBC (Bld) 76.1 % [facility] Nucleated RBC (Bld) [#/Vol] [facility] Nucleated RBC/100 WBC (Bld) [Ratio] 0 % /100 WBC [facility] Platelet mean volume (Bld) [Entitic vol] 12.1 fL 9.0 - 12.7 fL [facility] Platelets (Bld) [#/Vol] 177 10*3/uL [facility] RBC (Bld) [#/Vol] 5.3 10*6/uL 4.20 - 6.00 m/uL [facility] WBC (Bld) [#/Vol] 5.9 10*3/uL [facility] Basophils (Bld) [#/Vol] 10*3/uL Normal <0.11 [facility] Comment on above: Order Comment: Speci men Type: BLOOD SPECIMENOrdering Facility: [facility] Address: [address] [place] [address] Performed By: #### 5 7021-8 ####[place] [facility] [id number] [facility] [address], [place] [address] [place] Basophils/100 WBC (Bld) 0.3 % Normal [facility] Comment on above: Order Comment: Speci men Type: BLOOD SPECIMENOrdering Facility: [facility] Address: [address] [place] [address] Performed By: #### 5 7021-8 ####[place] [facility] [id number] [facility] [address], [place] [address] [place] Differential cell count method Nom (Bld) Auto Normal [facility] Comment on above: Order Comment: Speci men Type: BLOOD SPECIMENOrdering Facility: [facility] Address: [address] [place] [address] Performed By: #### 5 7021-8 ####[place] [facility] [id number] [facility] [place] [place] [address] [place] Eosinophils (Bld) [#/Vol] 0.03 10*3/uL Normal <0.46 [facility] Comment on above: Order Comment: Speci men Type: BLOOD SPECIMENOrdering Facility: [facility] Address: [address] [place] [address] Performed By: #### 5 7021-8 ####[place] [facility] [id number] [facility] [place] [id number] [place] Eosinophils/100 WBC (Bld) 0.5 % Normal [facility] Comment on above: Order Comment: Speci men Type: BLOOD SPECIMENOrdering Facility: [facility] Address: [address] [place] [address] Performed By: #### 5 7021-8 ####[place] [facility] [id number] [place] [address] [place] Erythrocyte distribution width (RBC) [Ratio] 12.9 % Normal 11.5-15.0 [facility] Comment on above: Order Comment: Speci men Type: BLOOD SPECIMENOrdering Facility: [facility] Address: [address] [place] [address] Performed By: #### 5 7021-8 ####[place] [facility] [id number] [place] [address] [place] Hematocrit (Bld) [Volume fraction] 45.9 % Normal 39.0-51.0 [facility] Comment on above: Order Comment: Speci men Type: BLOOD SPECIMENOrdering Facility: [facility] Address: [address] [place] [address] Performed By: #### 5 7021-8 ####[place] [facility] [id number] [place] [address] [place] Hemoglobin (Bld) [Mass/Vol] 15.6 g/dL Normal 13.0-17.0 [facility] Comment on above: Order Comment: Speci men Type: BLOOD SPECIMENOrdering Facility: [facility] Address: [address] [place] [address] Performed By: #### 5 7021-8 ####[place] [facility] [id number] [place] [address] [place] Immature granulocytes (Bld) [#/Vol] 10*3/uL Normal <0.10 [facility] Comment on above: Order Comment: Speci men Type: BLOOD SPECIMENOrdering Facility: [facility] Address: [address] [place] [address] Performed By: #### 5 7021-8 ####[place] [facility] [id number] [place] [address] [place] Immature granulocytes/100 WBC (Bld) 0.2 % Normal [facility] Comment on above: Order Comment: Speci men Type: BLOOD SPECIMENOrdering Facility: [facility] Address: [address] [place] [address] Performed By: #### 5 7021-8 ####[place] [facility] [id number] [place] [address] [place] Lymphocytes (Bld) [#/Vol] 0.95 10*3/uL Low 1.00-4.00 [facility] Comment on above: Order Comment: Speci men Type: BLOOD SPECIMENOrdering Facility: [facility] Address: [address] [place] [address] Performed By: #### 5 7021-8 ####[place] [facility] [id number] [place] [address] [place] Lymphocytes/100 WBC (Bld) 16.1 % Normal [facility] Comment on above: Order Comment: Speci men Type: BLOOD SPECIMENOrdering Facility: [facility] Address: [address] [place] [address] Performed By: #### 5 7021-8 ####[place] [facility] [id number] [place] [address] [place] MCH (RBC) [Entitic mass] 29.4 pg Normal 26.0-34.0 [facility] Comment on above: Order Comment: Speci men Type: BLOOD SPECIMENOrdering Facility: [facility] Address: [address] [place] [address] Performed By: #### 5 7021-8 ####[place] [facility] [id number] [place] [id number] [place] MCHC (RBC) [Mass/Vol] 34.0 g/dL Normal 30.5-36.0 [facility] Comment on above: Order Comment: Speci men Type: BLOOD SPECIMENOrdering Facility: [facility] Address: [address] [place] [address] Performed By: #### 5 7021-8 ####[place] [facility] [id number] [address] [address] [place] MCV (RBC) [Entitic vol] 86.6 fL Normal 80.0-100.0 [facility] Comment on above: Order Comment: Speci men Type: BLOOD SPECIMENOrdering Facility: [facility] Address: [address] [place] [address] Performed By: #### 5 7021-8 ####[place] [facility] [id number] [place] [address] [place] Monocytes (Bld) [#/Vol] 0.40 10*3/uL Normal <0.87 [facility] Comment on above: Order Comment: Speci men Type: BLOOD SPECIMENOrdering Facility: [facility] Address: [address] [place] [address] Performed By: #### 5 7021-8 ####[place] [facility] [id number] [place] [address] [place] Monocytes/100 WBC (Bld) 6.8 % Normal [facility] Comment on above: Order Comment: Speci men Type: BLOOD SPECIMENOrdering Facility: [facility] Address: [address] [place] [address] Performed By: #### 5 7021-8 ####[place] [facility] [id number] [address] [address] [place] Neutrophils (Bld) [#/Vol] 4.49 10*3/uL Normal 1.45-7.50 [facility] Comment on above: Order Comment: Speci men Type: BLOOD SPECIMENOrdering Facility: [facility] Address: [address] [place] [address] Performed By: #### 5 7021-8 ####[place] [facility] [id number] [place] [address] [place] Neutrophils/100 WBC (Bld) 76.1 % Normal [facility] Comment on above: Order Comment: Speci men Type: BLOOD SPECIMENOrdering Facility: [facility] Address: [address] [place] [address] Performed By: #### 5 7021-8 ####[place] [facility] [id number] [place] [address] [place] Nucleated RBC (Bld) [#/Vol] 10*3/uL Normal <0.01 [facility] Comment on above: Order Comment: Speci men Type: BLOOD SPECIMENOrdering Facility: [facility] Address: [address] [place] [address] Performed By: #### 5 7021-8 ####[place] [facility] [id number] [place] [address] [place] Nucleated RBC/100 WBC (Bld) [Ratio] 0.0 /100 WBC Normal [facility] Comment on above: Order Comment: Speci men Type: BLOOD SPECIMENOrdering Facility: [facility] Address: [address] [place] [address] Performed By: #### 5 7021-8 ####[place] [facility] [id number] [place] [address] [place] Platelet mean volume (Bld) [Entitic vol] 12.1 fL Normal 9.0-12.7 [facility] Comment on above: Order Comment: Speci men Type: BLOOD SPECIMENOrdering Facility: [facility] Address: [address] [place] [address] Performed By: #### 5 7021-8 ####[place] [facility] [id number] [place] [id number] [place] Platelets (Bld) [#/Vol] 177 10*3/uL Normal 150-400 [facility] Comment on above: Order Comment: Speci men Type: BLOOD SPECIMENOrdering Facility: [facility] Address: [address] [place] [address] Performed By: #### 5 7021-8 ####[place] [facility] [id number] [place] [address] [place] RBC (Bld) [#/Vol] 5.30 10*6/uL Normal 4.20-6.00 [facility] Comment on above: Order Comment: Speci men Type: BLOOD SPECIMENOrdering Facility: [facility] Address: [address] [place] [address] Performed By: #### 5 7021-8 ####[place] [facility] [id number] [place] [address] [place] WBC (Bld) [#/Vol] 5.90 10*3/uL Normal 3.70-11.00 [facility] Comment on above: Order Comment: Speci men Type: BLOOD SPECIMENOrdering Facility: [facility] [facility] Address: [address] [place] [address] Performed By: #### 5 7021-8 ####[facility] [id number] [place] [id number] [place] CNOVon 12-24-2024 CNOV Office Visit (FAMPWS ) LAZARO GARZON ([id number]) 1955 M Date Time Provider Department 12/24/24 [...] Weigh yourself and send an update via [facility] or call toward the end of the month with your weight change and how you?re feeling on the medication. - Schedule a repeat colonoscopy with the general surgery team (Dr. Bales or his partner Dr. Bennett at [facility]) as soon as possible, since your last [...] colonoscopy on 12/01/[address] Bennett at [facility] revealed diverticuli and poor bowel preparation; recommended [...] (HCC) unchanged (more content not included)... Normal [facility] LAZARO GARZON ([id number]) 1955 M Date Time Provider Department 12/24/24 JAGJIT CHEEMA [facility] During your visit today, we recorded the following information about you: Ni Hewitt RN 12/24/2024 3:13 PM Signed [facility] calling regarding Wegovy script received today. [...] 07/26/2023 Diagnosed: 07/26/2023 No response to treatment [[id number]] 07/26/2023 07/26/2023 (more content not included)... Normal [facility] Cardiology Visit Reporton Cardiology Visit Report [facility] 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 Normal [facility] Cardiovascular stress test r eportOrdered By: Denise Haywood on 11-21-2024 Study report [facility] Cardiovascular Services [address] [place] [address] MR#: [id number] Acct: [id number] Name: LAZARO GARZON Rep #: [id number] : 1955 69 From: Denise webber MD [...] is 65%. This note was generated with Cards Off software. It may contain incorrectwords, spelling, and punctuation that were not noted in checking the note beforesigning. 11/21/24 1421 Date _ Denise Haywood MD CC: Dr. Karl Vo MD; Dr. 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 This note was generated with DonorPathation software. It may contain incorrect words, spelling, and punctuation that were not noted in checking the note before signing. 11/21/24 1421 Date Denise Haywood MD CC: Dr. Karl Vo MD; Dr. Jagjit Cheema MD Date Dictated: 11/21/24 1414 Date Transcribed: 11/21/241413 Batting Machine Operator Insulation: NN Signed Normal [facility] 12 Lead EKGon 11-20-2024 12 Lead EKG [facility] Cardiovascular Services [address] [place] [address] 12 Lead EKG 11/20/24 1035 MR#: [id number] Acct: [id number] Name: LAZARO GAROZN Rep #: [id number] : 1955 69 From: Denise Haywood MD [...] ECG Confirmed by YOBANY CONTI, JEN ([id number]), editorial assistant KIRA HECK ([id number]) on 11/25/2024 7:10:49 AM Referred By: BB/UG Confirmed By: JEN HAYWOOD MD 11/25/24709 Date Denise Haywood MD CC: Dr. Jose Alberto Contreras MD; Dr. Jagjit Cheema MD Signed Normal [facility] Absolute lymphocyte countOrd ered By: Jose Alberto Contreras on 11-20-2024 Lymphocytes Auto (Unsp spec) [#/Vol] 0.75 10*3/uL Low 0.83-4.51 [facility] Absolute neutrophil countOrd ered By: Jose Alberto Contreras on 11-20-2024 Neutrophils (Bld) [#/Vol] 5.3 10*3/uL 2.0-7.7 [facility] Anion gap in Serum or Plasma Ordered By: Jose Alberto Contreras on 11-20-2024 Anion gap [Moles/Vol] 12 mmol/L 5-15 [facility] Automated lymphocyte count a s percentage of total leukocytesOrdered By: Jose Alberto Contreras on 11-20-2024 Lymphocytes/100 WBC Auto (Unsp spec) 11.7 % Low 19-41 [facility] BUN/creatinine ratioOrdered By: Jose Alberto Contreras on 11-20-2024 Urea nitrogen/Creatinine [Mass ratio] 18.9 mg/mg 10- [facility] Basic Metabolic Profile (BMP )on 11-20-2024 BUN/CRE 18.9 RATIO Normal - [facility] Comment on above: Performed By: #### L 100.0100, L500.2500 #### [facility] Laboratory [address] [place], [address] Calcium [Mass/Vol] 9.2 mg/dL Normal 7.6-11.0 [facility] Comment on above: Performed By: #### L 100.0100, L500.2500 #### [facility] [address] [place], [address] Chloride [Moles/Vol] 106 mmol/L Normal 98-108 [facility] Comment on above: Performed By: #### L 100.0100, L500.2500 #### [facility] [address] [place], [address] CO2 [Moles/Vol] 21.6 mmol/L Normal 21.0-32.0 [facility] Comment on above: Performed By: #### L 100.0100, L500.2500 #### [facility] [address] [place], [address] Creatinine [Mass/Vol] 1.22 mg/dL High 0.70-1.20 [facility] Comment on above: Performed By: #### L 100.0100, L500.2500 #### [facility] [address] [place], [address] ECRCL 95.39 ml/min Normal 50-250 [facility] Comment on above: Performed By: #### L 100.0100, L500.2500 #### [facility] [address] [place], [address] GAP 12 Normal 5-15 [facility] Comment on above: Performed By: #### L 100.0100, L500.2500 #### [facility] [address] [place], [address] GFR/1.73 sq M.predicted among non-blacks MDRD (S/P/Bld) [Vol rate/Area] 65 mL/min/{1.73_m2} Normal >60 [facility] Comment on above: Result Comment: mL/m in/1.73m2 CKD-EPI Creatinine Equation (2020) Performed By: #### L 100.0100, L500.2500 #### [facility] Laboratory [address] [place], [address] Glucose [Mass/Vol] 156 mg/dL High 70-99 [facility] Comment on above: Performed By: #### L 100.0100, L500.2500 #### [facility] [address] [place], [address] Potassium [Moles/Vol] 3.8 mmol/L Normal 3.3-5.1 [facility] Comment on above: Performed By: #### L 100.0100, L500.2500 #### [facility] [address] [place], [address] Sodium [Moles/Vol] 140 mmol/L Normal 133-145 [facility] Comment on above: Performed By: #### L 100.0100, L500.2500 #### [facility] [address] [place], [address] Urea nitrogen [Mass/Vol] 23 mg/dL High 4-19 [facility] Comment on above: Performed By: #### L 100.0100, L500.2500 #### [facility] [address] [place], [address] Basophil percentageOrdered B y: Jose Alberto Contreras on 11-20-2024 Basophils/100 WBC (Bld) 0.5 % 0-1 [facility] CBC W/Diff, Automatedon -0 Absolute Lymph 0.75 X10 3/uL Low 0.83-4.51 [facility] Comment on above: Performed By: #### L 100.0100, L500.2500 #### [facility] [address] [place], [address] Absolute Neut 5.3 X10 3/uL Normal 2.0-7.7 [facility] Comment on above: Performed By: #### L 100.0100, L500.2500 #### [facility] [address] [place], [address] Basophils/100 WBC (Bld) 0.5 % Normal 0-1 [facility] Comment on above: Performed By: #### L 100.0100, L500.2500 #### [facility] [address] [place], [address] Eosinophils/100 WBC (Bld) 0.2 % Normal 0-5 [facility] Comment on above: Performed By: #### L 100.0100, L500.2500 #### [facility] [address] [place], [address] Erythrocyte distribution width (RBC) [Ratio] 14.4 % Normal 11.6-14.6 [facility] Comment on above: Performed By: #### L 100.0100, L500.2500 #### [facility] [address] [place], [address] Hematocrit (Bld) [Volume fraction] 44.4 % Normal 40-54 [facility] Comment on above: Performed By: #### L 100.0100, L500.2500 #### [facility] [address] [place], [address] Hemoglobin (Bld) [Mass/Vol] 15.4 g/dL Normal 13.0-16.5 [facility] Comment on above: Performed By: #### L 100.0100, L500.2500 #### [facility] [address] [place], [address] IG% 0.500 Normal 0.0-0.9 [facility] Comment on above: Result Comment: IG% - Immature Granulocytes (promyelocytes, myelocytes and metamyelocytes) > 1% indicates that a LEFT SHIFT is Present. Performed By: #### L 100.0100, L500.2500 #### [facility] [address] [place], [address] Lymphocytes/100 WBC (Bld) 11.7 % Low 19-41 [facility] Comment on above: Performed By: #### L 100.0100, L500.2500 #### [facility] [address] [place], [address] MCH (RBC) [Entitic mass] 29.7 pg Normal 27.0-32.0 [facility] Comment on above: Performed By: #### L 100.0100, L500.2500 #### [facility] [address] [place], [address] MCHC (RBC) [Mass/Vol] 34.7 g/dL Normal 32-36 [facility] Comment on above: Performed By: #### L 100.0100, L500.2500 #### [facility] [address] [place], [address] MCV (RBC) [Entitic vol] 85.5 fL Normal 80-94 [facility] Comment on above: Performed By: #### L 100.0100, L500.2500 #### [facility] [address] [place], [address] Monocytes/100 WBC (Bld) 4.4 % Normal 0-10 [facility] Comment on above: Performed By: #### L 100.0100, L500.2500 #### [facility] [address] [place], [address] Neutrophils/100 WBC (Bld) 82.7 % High 47-70 [facility] Comment on above: Performed By: #### L 100.0100, L500.2500 #### [facility] [address] [place], [address] Nucleated RBC (Bld) [#/Vol] 0 10*3/uL Normal 0-5 [facility] Comment on above: Performed By: #### L 100.0100, L500.2500 #### [facility] [address] [place], [address] Platelet mean volume (Bld) [Entitic vol] 11.2 fL Normal 6.2-12.0 [facility] Comment on above: Performed By: #### L 100.0100, L500.2500 #### [facility] [address] [place], [address] Platelets (Bld) [#/Vol] 160 10*3/uL Normal 150-450 [facility] Comment on above: Performed By: #### L 100.0100, L500.2500 #### [facility] [address] [place], [address] RBC (Bld) [#/Vol] 5.19 10*6/uL Normal 4.6-6.2 [facility] Comment on above: Performed By: #### L 100.0100, L500.2500 #### [facility] [address] [place], [address] RDW SD 45.0 fl High 35.1-43.9 [facility] Comment on above: Performed By: #### L 100.0100, L500.2500 #### [facility] [address] [place], [address] WBC (Bld) [#/Vol] 6.4 10*3/uL Normal 4.4-11.0 [facility] Comment on above: Performed By: #### L 100.0100, L500.2500 #### [facility] [address] [place], [address] Carbon dioxide, total [Moles /volume] in Central venous bloodOrdered By: Jose Alberto Contreras on 11-20-2024 CO2 [Moles/Vol] 21.6 mmol/L 21.0-32.0 [facility] Chest PA and Lateralon 11-20 Chest PA and Lateral [facility] Imaging Services [address] [place] [address] Chest PA and Lateral MR#: [id number] Acct: [id number] Name: LAZARO GARZON Rep #: [id number] : 1955 M 69 From: Noe Noel MD PCP: Dr. Jagjit Cheema MD Status: REG ER Study: Chest PA and Lateral Date of Exam: 11/20/24 Exam# [id number] Ordering Dr: Jose Alberto Contreras MD PROCEDURE: [...] evidence of acute cardiopulmonary pathology. Reading Location: [facility] CC: Dr. Jose Alberto Contreras MD; Dr. Jagjit Cheema MD Batting Machine Operator Insulation: Signed Normal [facility] Chloride assayOrdered By: Nola Contreras on 11-20-2024 Chloride [Moles/Vol] 106 mmol/L 98-108 [facility] D-Dimer Quantitative (DVT/PE )on 11-20-2024 D-DIMER QUANT 0.30 FEU/ug/m Normal 0.27-0.49 [facility] Comment on above: Result Comment: NORM AL D-Dimer level (<0.50) indicates no DVT or PE. Performed By: #### L 300.8000 #### [facility] Laboratory [address] [place], [address] Emergency Department Summary on 11-20-2024 Emergency Department Summary [facility] Medical Records Department [address] [place] [address] Emergency Department Summary 11/20/24 MR#: [id number] Acct: [id number] Name: LAZARO GARZON Rep #: [id number] : 1955 69 From: Jose Alberto Contreras [...] or orthopnea. This morning, he called his csr office to make an appointment about this [...] that he has been having a little. [facility] Medical History History of cardioversion [...] disease) Essential hypertension Atherosclerotic heart disease of [place] coronary artery without angina pectoris Confusion Unstable [...] Social H (more content not included)... Normal [facility] Eosinophil percentageOrdered By: Jose Alberto Contreras on 11-20-2024 Eosinophils/100 WBC (Bld) 0.2 % 0-5 [facility] Erythrocyte distribution wid th ratioOrdered By: Jose Alberto Contreras on 11-20-2024 Erythrocyte distribution width (RBC) [Ratio] 14.4 % 11.6-14.6 [facility] Erythrocyte distribution wid th standard deviationOrdered By: Jose Alberto Contreras on 11-20-2024 Erythrocyte distribution width (RBC) [Ratio] 45.0 fl High 35.1-43.9 [facility] Glomerular filtration rate ( GFR) estimation/1.73 sq m using serum, plasma, or whole bOrdered By: Jose Alberto Contreras on 11-20-2024 GFR/1.73 sq M.predicted among non-blacks MDRD (S/P/Bld) [Vol rate/Area] 65 mL/min/{1.73_m2} >60 [facility] Comment on above: mL/min/1.73m2 CKD-EP I Creatinine Equation (2020) Hematocrit Auto (Bld) [Volum e fraction]Ordered By: Jose Alberto Contreras on 11-20-2024 Hematocrit (Bld) [Volume fraction] 44.4 % 40-54 [facility] Hemoglobin measurementOrdere d By: Jose Alberto Contreras on 11-20-2024 Hemoglobin (Bld) [Mass/Vol] 15.4 g/dL 13.0-16.5 [facility] Immature granulocytes/100 WB C Auto (Bld)Ordered By: Jose Alberto Contreras on 11-20-2024 Immature granulocytes/100 WBC (Bld) 0.500 % 0.0-0.9 [facility] Comment on above: IG% - Immature Granu locytes (promyelocytes, myelocytes and metamyelocytes) > 1% indicates that a LEFT SHIFT is Present. L499.0042on 11-20-2024 Trop T High Sen 20 ng/L Normal <=22 [facility] Comment on above: Performed By: #### L 100.0100, L500.2500 #### [facility] Laboratory [address] [place], [address] L499.0043on 11-20-2024 Trop T High Sen Normal <=22 [facility] Comment on above: Result Comment: Canc elled via OM: Order cancelled - Patient discharged Performed By: #### L 499.0043 #### [facility] Laboratory [address] [place], [address] L501.4021on 11-20-2024 Trop T High Sen 25 ng/L High <=22 [facility] Comment on above: Performed By: #### L 100.0100, L500.2500 #### [facility] [address] [place], [address] L503.7505on 11-20-2024 Natriuretic peptide B (Bld) [Mass/Vol] 143 pg/mL Normal <=900 [facility] Comment on above: Result Comment: Hear t Failure Unlikely: < 300 pg/mL Heart Failure Likely < 50 Years: > 450 pg/mL 50-75 Years: > 900 pg/mL >75 Years: > 1800 pg/mL Performed By: #### L 100.0100, L500.2500 #### [facility] [address] [place], [address] MCV (mean corpuscular volume ) determinationOrdered By: Jose Alberto Contreras on 11-20-2024 MCV (RBC) [Entitic vol] 85.5 fL 80-94 [facility] Mean corpuscular hemoglobin (MCH) determinationOrdered By: Jose Alberto Contreras on 11-20-2024 MCH (RBC) [Entitic mass] 29.7 pg 27.0-32.0 [facility] Mean corpuscular hemoglobin concentration (MCHC) determinationOrdered By: Jose Alberto Contreras on 11-20-2024 MCHC (RBC) [Mass/Vol] 34.7 g/dL 32-36 [facility] Mean platelet volume determi nationOrdered By: Jose Alberto Contreras on 11-20-2024 Platelet mean volume (Bld) [Entitic vol] 11.2 fL 6.2-12.0 [facility] Monocyte percentageOrdered B y: Jose Alberto Contreras on 11-20-2024 Monocytes/100 WBC (Bld) 4.4 % 0-10 [facility] Natriuretic peptide.B prohor madeleine N-Terminal [Mass/volume] in Serum or PlasmaOrdered By: Jose Alberto Contreras on 11-20-2024 Natriuretic peptide.B prohormone N-Terminal [Mass/Vol] 143 pg/mL <900 [facility] Comment on above: Heart Failure Unlike ly: < 300 pg/mLHeart Failure Likely< 50 Years: > 450 pg/mL50-75 Years: > 900 pg/mL>75 Years: > 1800 pg/mL Neutrophil percentageOrdered By: Jose Alberto Contreras on 11-20-2024 Neutrophils/100 WBC (Bld) 82.7 % High 47-70 [facility] Nucleated red blood cell per centageOrdered By: Jose Alberto Contreras on 11-20-2024 Nucleated RBC/100 WBC (Bld) [Ratio] 0 % 0-5 [facility] Platelet countOrdered By: Nola Contreras on 11-20-2024 Platelets (Bld) [#/Vol] 160 10*3/uL 150-450 [facility] Potassium measurement (mass/ volume)Ordered By: Jose Alberto Contreras on 11-20-2024 Potassium (Unsp spec) [Mass/Vol] 3.8 mmol/L 3.3-5.1 [facility] RBC Auto (Bld) [#/Vol]Ordere d By: Jose Alberto Contreras on 11-20-2024 RBC (Bld) [#/Vol] 5.19 10*6/uL 4.6-6.2 [facility] Serum creatinine measurement (mass/volume)Ordered By: Jose Alberto Contreras on 11-20-2024 Creatinine [Mass/Vol] 1.22 mg/dL High 0.70-1.20 [facility] Serum glucose measurement (m ass/volume)Ordered By: Jose Alberto Contreras on 11-20-2024 Glucose [Mass/Vol] 156 mg/dL High 70-99 [facility] Serum or plasma calcium peterson urement (mass/volume)Ordered By: Jose Alberto Contreras on 11-20-2024 Calcium [Mass/Vol] 9.2 mg/dL 7.6-11.0 [facility] Serum or plasma urea nitroge n measurement (mass/volume)Ordered By: Jose Alberto Contreras on 11-20-2024 Urea nitrogen [Mass/Vol] 23 mg/dL High 4-19 [facility] Sodium levelOrdered By: Miki Contreras on 11-20-2024 Sodium [Moles/Vol] 140 mmol/L 133-145 [facility] Troponin T.cardiac [Mass/vol ume] in Serum or Plasma by High sensitivity methodOrdered By: Jose Alberto Contreras on 11-20-2024 Troponin T.cardiac High sensitivity method [Mass/Vol] 20 ng/L <22 [facility] Troponin T.cardiac High sensitivity method [Mass/Vol] 25 ng/L High <22 [facility] White blood cell (WBC) count Ordered By: Jose Alberto Contreras on 11-20-2024 WBC (Bld) [#/Vol] 6.4 10*3/uL 4.4-11.0 [facility] CNOVon 11-18-2024 CNOV Office Visit (PERICO ) LAZARO GARZON ([id number]) 1955 M Date Time Provider Department 11/18/24 11:20 AM [facility] During your visit today, we recorded the [...] Date ADENOIDECTOMY PRIMARY Adenoidectomy COLONOSCOPY N/A 07/20/2016 [facility]COPY 01/24/2019 adenomatous colon polyps, repeat in 3 years COLONOSCOPY FLX DX W/COLLJ SPEC WHEN PFRMD 2004 Colonoscopy COLONOSCOPY FLX DX W/COLLJ SPEC WHEN PFRMD 03/07/2011 wnl EGD N/A 07/20/2016 [facility] EGD 01/24/2019 gastritis and gastric polyps ESOPHAGOGASTRODUODENOSCOPY TRANSORAL DIAGNOSTIC 05/24/2011 EGD F TRIAL SPINAL CORD STIMULATOR HEMORRHOIDECTOMY XTRNL 2/> COLUMN/GROUP 04/30/2015 KNEE SURGERY HX Right 1988 LAPS SURG CHOLECYSTECTOMY W/CHOLANGIOGRAPHY 2004 [facility] - Dr. Bales OPEN REPAIR OF ROTATOR [...] TAB T (more content not included)... Normal [facility] XR CHEST 2V FRONTAL/LATon XR CHEST 2V [...] the spine. IMPRESSION: No acute radiographic abnormality. Batting Machine Operator Insulation: OSMANI Transcribe Date/Time: Nov 18 2024 1:08P Dictated by : LETTY THOMAS MD This examination was interpreted and the report reviewed and electronically signed by: LETTY THOMAS MD on Nov 18 2024 1:09PM EST [id number] Normal [facility] XR Chest PA and Lateralon IMPRESSION: No acute radiographic abnormality. Batting Machine Operator Insulation: OSMANI Transcribe Date/Time: Nov 18 2024 1:08P [...] spine. IMPRESSION IMPRESSION: No acute radiographic abnormality. Batting Machine Operator Insulation: PSCB Transcribe Date/Time: Nov 18 2024 1:08P Dictated by : LETTY THOMAS MD This examination was interpreted and the report reviewed and electronically signed by: LETTY THOMAS MD on Nov 18 2024 1:09PM EST [facility] Radiology Study observation (narrative) [facility] XR Chest PA and LateralOrder ed By: [facility] Provider on 11-18-2024 [facility] Abdomen/Pelvis W IV Cont ONL Yon 10-28-2024 Abdomen/Pelvis W IV Cont ONLY [facility] Imaging Services [address] [place] [address] Abdomen/Pelvis W IV Cont ONLY MR#: [id number] Acct: [id number] Name: LAZARO GARZON Rep #: [id number] : 1955 M 69 From: Paul perdomo MD PCP: Dr. Jagjit Cheema MD Status: REG ER Study: Abdomen/Pelvis W IV Cont ONLY Date of Exam: Exam# [id number] Ordering Dr: Robby Mclaughlin DO PROCEDURE: ABDOMEN/PELVIS [...] lower chance of developing HCC. Reading Location: [id number] CC: Dr. Robby Mclaughlin DO; Dr. Jagjit Cheema MD Batting Machine Operator Insulation: Signed Normal [facility] Absolute lymphocyte countOrd ered By: Robby Mclaughlin on 10-28-2024 Lymphocytes Auto (Unsp spec) [#/Vol] 0.92 10*3/uL 0.83-4.51 [facility] Absolute neutrophil countOrd ered By: Robby Mclaughlin on 10-28-2024 Neutrophils (Bld) [#/Vol] 2.8 10*3/uL 2.0-7.7 [facility] Anion gap in Serum or Plasma Ordered By: Robby Mclaughlin on 10-28-2024 Anion gap [Moles/Vol] 9 mmol/L 5- [facility] Automated lymphocyte count a s percentage of total leukocytesOrdered By: Robby Mclaughlin on 10-28-2024 Lymphocytes/100 WBC Auto (Unsp spec) 22.3 % [facility] BUN/creatinine ratioOrdered By: Robby Mclaughlin on 10-28-2024 Urea nitrogen/Creatinine [Mass ratio] 15.9 mg/mg 04-07 [facility] Basic Metabolic Profile (BMP )on 10-28-2024 BUN/CRE 15.9 RATIO Normal 04-07 [facility] Comment on above: Performed By: #### L 500.2500, L500.3400, L100.0100, L501.2450 #### [facility] Laboratory [address] [place], [address] Calcium [Mass/Vol] 8.4 mg/dL Normal 7.6-11.0 [facility] Comment on above: Performed By: #### L 500.2500, L500.3400, L100.0100, L501.2450 #### [facility] [address] [place], [address] Chloride [Moles/Vol] 108 mmol/L Normal 98-108 [facility] Comment on above: Performed By: #### L 500.2500, L500.3400, L100.0100, L501.2450 #### [facility] [address] [place], [address] CO2 [Moles/Vol] 24.2 mmol/L Normal 21.0-32.0 [facility] Comment on above: Performed By: #### L 500.2500, L500.3400, L100.0100, L501.2450 #### [facility] [address] [place], [address] Creatinine [Mass/Vol] 0.93 mg/dL Normal 0.70-1.20 [facility] Comment on above: Performed By: #### L 500.2500, L500.3400, L100.0100, L501.2450 #### [facility] [address] [place], [address] ECRCL 125.79 ml/min Normal 50-250 [facility] Comment on above: Performed By: #### L 500.2500, L500.3400, L100.0100, L501.2450 #### [facility] [address] [place], [address] GAP 9 Normal 5-15 [facility] Comment on above: Performed By: #### L 500.2500, L500.3400, L100.0100, L501.2450 #### [facility] [address] [place], [address] GFR/1.73 sq M.predicted among non-blacks MDRD (S/P/Bld) [Vol rate/Area] 90 mL/min/{1.73_m2} Normal >60 [facility] Comment on above: Result Comment: mL/m in/1.73m2 CKD-EPI Creatinine Equation (2020) Performed By: #### L 500.2500, L500.3400, L100.0100, L501.2450 #### [facility] [address] [place], [address] Glucose [Mass/Vol] 119 mg/dL High 70-99 [facility] Comment on above: Performed By: #### L 500.2500, L500.3400, L100.0100, L501.2450 #### [facility] [address] [place], [address] Potassium [Moles/Vol] 3.7 mmol/L Normal 3.3-5.1 [facility] Comment on above: Performed By: #### L 500.2500, L500.3400, L100.0100, L501.2450 #### [facility] [address] [place], [address] Sodium [Moles/Vol] 141 mmol/L Normal 133-145 [facility] Comment on above: Performed By: #### L 500.2500, L500.3400, L100.0100, L501.2450 #### [facility] [address] [place], [address] Urea nitrogen [Mass/Vol] 15 mg/dL Normal 4-19 [facility] Comment on above: Performed By: #### L 500.2500, L500.3400, L100.0100, L501.2450 #### [facility] [address] [place], [place], [id number] (131) Basophil percentageOrdered B y: Robby Mclaughlin on 10-28-2024 Basophils/100 WBC (Bld) 0.5 % 0-1 [facility] Bilirubin Test strip Ql (U)O rdered By: Robby Mclaughlin on 10-28-2024 Bilirubin Ql (U) Negative Negative [facility] Bilirubin directOrdered By: Robby Mclaughlin on 10-28-2024 Bilirubin.direct [Mass/Vol] 0.25 mg/dL 0.00-0.30 [facility] Bilirubin, totalOrdered By: Robby Mclaughlin on 10-28-2024 Bilirubin [Mass/Vol] 0.62 mg/dL 0.00-1.30 [facility] CBC W/Diff, Automatedon 10-17 Absolute Lymph 0.92 X10 3/uL Normal 0.83-4.51 [facility] Comment on above: Performed By: #### L 500.2500, L500.3400, L100.0100, L501.2450 #### [facility] [address] [place], [address] Absolute Neut 2.8 X10 3/uL Normal 2.0-7.7 [facility] Comment on above: Performed By: #### L 500.2500, L500.3400, L100.0100, L501.2450 #### [facility] [address] [place], [address] Basophils/100 WBC (Bld) 0.5 % Normal 0-1 [facility] Comment on above: Performed By: #### L 500.2500, L500.3400, L100.0100, L501.2450 #### [facility] [address] [place], [address] Eosinophils/100 WBC (Bld) 1.2 % Normal 0-5 [facility] Comment on above: Performed By: #### L 500.2500, L500.3400, L100.0100, L501.2450 #### [facility] [address] [place], [address] Erythrocyte distribution width (RBC) [Ratio] 14.2 % Normal 11.6-14.6 [facility] Comment on above: Performed By: #### L 500.2500, L500.3400, L100.0100, L501.2450 #### [facility] [address] [place], [address] Hematocrit (Bld) [Volume fraction] 40.7 % Normal 40-54 [facility] Comment on above: Performed By: #### L 500.2500, L500.3400, L100.0100, L501.2450 #### [facility] [address] [place], [address] Hemoglobin (Bld) [Mass/Vol] 14.1 g/dL Normal 13.0-16.5 [facility] Comment on above: Performed By: #### L 500.2500, L500.3400, L100.0100, L501.2450 #### [facility] [address] [place], [address] IG% 0.200 Normal 0.0-0.9 [facility] Comment on above: Result Comment: IG% - Immature Granulocytes (promyelocytes, myelocytes and metamyelocytes) > 1% indicates that a LEFT SHIFT is Present. Performed By: #### L 500.2500, L500.3400, L100.0100, L501.2450 #### [facility] [address] [place], [address] Lymphocytes/100 WBC (Bld) 22.3 % Normal 19-41 [facility] Comment on above: Performed By: #### L 500.2500, L500.3400, L100.0100, L501.2450 #### [facility] [address] [place], [address] MCH (RBC) [Entitic mass] 29.7 pg Normal 27.0-32.0 [facility] Comment on above: Performed By: #### L 500.2500, L500.3400, L100.0100, L501.2450 #### [facility] [address] [place], [address] MCHC (RBC) [Mass/Vol] 34.6 g/dL Normal 32-36 [facility] Comment on above: Performed By: #### L 500.2500, L500.3400, L100.0100, L501.2450 #### [facility] [address] [place], [address] MCV (RBC) [Entitic vol] 85.7 fL Normal 80-94 [facility] Comment on above: Performed By: #### L 500.2500, L500.3400, L100.0100, L501.2450 #### [facility] [address] [place], [address] Monocytes/100 WBC (Bld) 8.3 % Normal 0-10 [facility] Comment on above: Performed By: #### L 500.2500, L500.3400, L100.0100, L501.2450 #### [facility] [address] [place], [address] Neutrophils/100 WBC (Bld) 67.5 % Normal 47-70 [facility] Comment on above: Performed By: #### L 500.2500, L500.3400, L100.0100, L501.2450 #### [facility] [address] [place], [address] Nucleated RBC (Bld) [#/Vol] 0 10*3/uL Normal 0-5 [facility] Comment on above: Performed By: #### L 500.2500, L500.3400, L100.0100, L501.2450 #### [facility] [address] [place], [address] Platelet mean volume (Bld) [Entitic vol] 10.7 fL Normal 6.2-12.0 [facility] Comment on above: Performed By: #### L 500.2500, L500.3400, L100.0100, L501.2450 #### [facility] [address] [place], [address] Platelets (Bld) [#/Vol] 147 10*3/uL Low 150-450 [facility] Comment on above: Performed By: #### L 500.2500, L500.3400, L100.0100, L501.2450 #### [facility] [address] [place], [address] RBC (Bld) [#/Vol] 4.75 10*6/uL Normal 4.6-6.2 [facility] Comment on above: Performed By: #### L 500.2500, L500.3400, L100.0100, L501.2450 #### [facility] [address] [place], [address] RDW SD 43.7 fl Normal 35.1-43.9 [facility] Comment on above: Performed By: #### L 500.2500, L500.3400, L100.0100, L501.2450 #### [facility] [address] [place], [address] WBC (Bld) [#/Vol] 4.1 10*3/uL Low 4.4-11.0 [facility] Comment on above: Performed By: #### L 500.2500, L500.3400, L100.0100, L501.2450 #### [facility] [address] [place], [address] Carbon dioxide, total [Moles /volume] in Central venous bloodOrdered By: Robby Mclaughlin on 10-28-2024 CO2 [Moles/Vol] 24.2 mmol/L 21.0-32.0 [facility] Chloride assayOrdered By: Babak Mclaughlin on 10-28-2024 Chloride [Moles/Vol] 108 mmol/L 98-108 [facility] Emergency Department Summary on 10-28-2024 Emergency Department Summary [facility] Medical Records Department [address] [place] [address] Emergency Department Summary 10/28/24 MR#: [id number] Acct: [id number] Name: LAZARO GARZON Rep #: [id number] : 1955 69 From: Robby Mclaughlin DO [...] had a colonoscopy in the past at [facility]. He states he has a history of diverticulosis. He is not currently on blood thinners does take baby aspirin. [facility] Medical History History of cardioversion [...] disease) Essential hypertension Atherosclerotic heart disease of [place] coronary artery without angina pectoris Confusion Unstable [...] caffeine: Yes (more content not included)... Normal [facility] Eosinophil percentageOrdered By: Robby Mclaughlin on 10-28-2024 Eosinophils/100 WBC (Bld) 1.2 % 0-5 [facility] Erythrocyte distribution wid th ratioOrdered By: Robby Mclaughlin on 10-28-2024 Erythrocyte distribution width (RBC) [Ratio] 14.2 % 11.6-14.6 [facility] Erythrocyte distribution wid th standard deviationOrdered By: Robby Mclaughlin on 10-28-2024 Erythrocyte distribution width (RBC) [Ratio] 43.7 fl 35.1-43.9 [facility] Glomerular filtration rate ( GFR) estimation/1.73 sq m using serum, plasma, or whole bOrdered By: Robby Mclaughlin on 10-28-2024 GFR/1.73 sq M.predicted among non-blacks MDRD (S/P/Bld) [Vol rate/Area] 90 mL/min/{1.73_m2} >60 [facility] Comment on above: mL/min/1.73m2 CKD-EP I Creatinine Equation (2020) Hematocrit Auto (Bld) [Volum e fraction]Ordered By: Robby Mclaughlin on 10-28-2024 Hematocrit (Bld) [Volume fraction] 40.7 % 40-54 [facility] Hemoglobin measurementOrdere d By: Robby Mclaughlin on 10-28-2024 Hemoglobin (Bld) [Mass/Vol] 14.1 g/dL 13.0-16.5 [facility] Immature granulocytes/100 WB C Auto (Bld)Ordered By: Robby Mclaughlin on 10-28-2024 Immature granulocytes/100 WBC (Bld) 0.200 % 0.0-0.9 [facility] Comment on above: IG% - Immature Granu locytes (promyelocytes, myelocytes and metamyelocytes) > 1% indicates that a LEFT SHIFT is Present. Ketones Test strip Ql (U)Ord ered By: Robby Mclaughlin on 10-28-2024 Ketones Ql (U) Negative Negative [facility] - Chemistry and C hemistry - challengeOrdered By: Robby Mclaughlin on 10-28-2024 AST [Catalytic activity/Vol] 30 U/L <38 [facility] Lipaseon 10-28-2024 Lipase [Catalytic activity/Vol] 33 U/L Normal 13-75 [facility] Comment on above: Result Comment: Plea note: LIPASE revised reference range effective 22. New Lipase methodology. Expected to produce lower values than the previous assay method. NEW Reference Range: 13 - 75 U/L Performed By: #### L 100.0100, L500.2500 #### [facility] [place], [address] Lipase measurementOrdered By : Robby Mclaughlin on 10-28-2024 Lipase [Catalytic activity/Vol] 33 U/L 13-75 [facility] Comment on above: Please note:LIPASE r evised reference range effective 22. New Lipase methodology. Expected to produce lower values than the previous assay method. NEW Reference Range: 13 - 75 U/L Liver Profileon 10-28-2024 Albumin [Mass/Vol] 4.1 g/dL Normal 3.4-4.8 [facility] Comment on above: Performed By: #### L 500.2500, L500.3400, L100.0100, L501.2450 #### [facility] [address] [place], [address] ALK PHOS 67 U/L Normal 40-129 [facility] Comment on above: Performed By: #### L 500.2500, L500.3400, L100.0100, L501.2450 #### [facility] [address] [place], [address] ALT [Catalytic activity/Vol] 36 U/L Normal <=46 [facility] Comment on above: Performed By: #### L 500.2500, L500.3400, L100.0100, L501.2450 #### [facility] [address] [place], [address] AST [Catalytic activity/Vol] 30 U/L Normal <=37 [facility] Comment on above: Performed By: #### L 500.2500, L500.3400, L100.0100, L501.2450 #### [facility] [address] [place], [address] Bilirubin [Mass/Vol] 0.62 mg/dL Normal 0.00-1.30 [facility] Comment on above: Performed By: #### L 500.2500, L500.3400, L100.0100, L501.2450 #### [facility] [address] [place], [address] Bilirubin.direct [Mass/Vol] 0.25 mg/dL Normal 0.00-0.30 [facility] Comment on above: Performed By: #### L 500.2500, L500.3400, L100.0100, L501.2450 #### [facility] [address] [place], [address] Globulin (S) [Mass/Vol] 2.5 g/dL Normal 2.2-4.2 [facility] Comment on above: Performed By: #### L 500.2500, L500.3400, L100.0100, L501.2450 #### [facility] [address] [place], [address] T PROT 6.6 g/dL Normal 5.9-8.4 [facility] Comment on above: Performed By: #### L 500.2500, L500.3400, L100.0100, L501.2450 #### [facility] [address] [place], [address] MCV (mean corpuscular volume ) determinationOrdered By: Robby Mclaughlin on 10-28-2024 MCV (RBC) [Entitic vol] 85.7 fL 80-94 [facility] Mean corpuscular hemoglobin (MCH) determinationOrdered By: Robby Mclaughlin on 10-28-2024 MCH (RBC) [Entitic mass] 29.7 pg 27.0-32.0 [facility] Mean corpuscular hemoglobin concentration (MCHC) determinationOrdered By: Robby Mclaughlin on 10-28-2024 MCHC (RBC) [Mass/Vol] 34.6 g/dL 32-36 [facility] Mean platelet volume determi nationOrdered By: Robby Mclaughlin on 10-28-2024 Platelet mean volume (Bld) [Entitic vol] 10.7 fL 6.2-12.0 [facility] Microscopic analysis of urin e for red blood cells (RBC)Ordered By: Robby Mclaughlin on 10-28-2024 Microscopic analysis of urine for red blood cells (RBC) 0 SEEN /hpf 0-5 [facility] Monocyte percentageOrdered B y: Robby Mclaughlin on 10-28-2024 Monocytes/100 WBC (Bld) 8.3 % 0-10 [facility] Mucus LM Ql (Urine sed)Order ed By: Robby Mclaughlin on 10-28-2024 Mucus Ql (Urine sed) 0 SEEN /hpf [facility] Neutrophil percentageOrdered By: Robby Mclaughlin on 10-28-2024 Neutrophils/100 WBC (Bld) 67.5 % 47-70 [facility] Nitrite Test strip Ql (U)Ord ered By: Robby Mclaughlin on 10-28-2024 Nitrite Ql (U) Negative Negative [facility] Nucleated red blood cell per centageOrdered By: Robby Mclaughlin on 10-28-2024 Nucleated RBC/100 WBC (Bld) [Ratio] 0 % 0-5 [facility] Platelet countOrdered By: Babak Mclaughlin on 10-28-2024 Platelets (Bld) [#/Vol] 147 10*3/uL Low 150-450 [facility] Potassium measurement (mass/ volume)Ordered By: Robby Mclaughlin on 10-28-2024 Potassium (Unsp spec) [Mass/Vol] 3.7 mmol/L 3.3-5.1 [facility] Protein Test strip Ql (U)Ord ered By: Robby Mclaughlin on 10-28-2024 Protein Ql (U) 15 mg/dl High Negative [facility] RBC Auto (Bld) [#/Vol]Ordere d By: Robby Mclaughlin on 10-28-2024 RBC (Bld) [#/Vol] 4.75 10*6/uL 4.6-6.2 [facility] Serum creatinine measurement (mass/volume)Ordered By: Robby Mclaughlin on 10-28-2024 Creatinine [Mass/Vol] 0.93 mg/dL 0.70-1.20 [facility] Serum globulin measurementOr dered By: Robby Mclaughlin on 10-28-2024 Globulin (S) [Mass/Vol] 2.5 g/dL 2.2-4.2 [facility] Serum glucose measurement (m ass/volume)Ordered By: Robby Mclaughlin on 10-28-2024 Glucose [Mass/Vol] 119 mg/dL High 70-99 [facility] Serum or plasma alanine fuchs otransferase (ALT) measurementOrdered By: Robby Mclaughlin on 10-28-2024 ALT [Catalytic activity/Vol] 36 U/L <47 [facility] Serum or plasma albumin peterson urement (mass/volume)Ordered By: Robby Mclaughlin on 10-28-2024 Albumin [Mass/Vol] 4.1 g/dL 3.4-4.8 [facility] Serum or plasma alkaline miki sphatase measurementOrdered By: Robby Mclaughlin on 10-28-2024 ALP [Catalytic activity/Vol] 67 U/L 40-129 [facility] Serum or plasma calcium peterson urement (mass/volume)Ordered By: Robby Mclaughlin on 10-28-2024 Calcium [Mass/Vol] 8.4 mg/dL 7.6-11.0 [facility] Serum or plasma urea nitroge n measurement (mass/volume)Ordered By: Robby Mclaughlin on 10-28-2024 Urea nitrogen [Mass/Vol] 15 mg/dL 4-19 [facility] Sodium levelOrdered By: Gerald Mclaughlin on 10-28-2024 Sodium [Moles/Vol] 141 mmol/L 133-145 [facility] Squamous epithelial cells de tection in urine sediment by light microscopyOrdered By: Robby Mclaughlin on 10-28-2024 Epithelial cells.squamous LM Ql (Urine sed) 0-5 SEEN /hpf 0-5 [facility] Total proteinOrdered By: Ramsey Mclaughlin on 10-28-2024 Protein [Mass/Vol] 6.6 g/dL 5.9-8.4 [facility] Urinalysis, Completeon 10-28 EPI,SQUAMOUS 0-5 SEEN Normal 0-5 [facility] Comment on above: Order Comment: LUCILLE CTOR TO SPECIFY Performed By: #### L 400.0001 #### [facility] [address] [place], [place], [address] BACTERIA 0 SEEN Normal None Seen [facility] Comment on above: Order Comment: LUCILLE CTOR TO SPECIFY Performed By: #### L 400.0001 #### [facility] [address] [place], [address] Mucus Ql (Urine sed) 0 SEEN Normal [facility] Comment on above: Order Comment: LUCILLE CTOR TO SPECIFY Performed By: #### L 400.0001 #### [facility] [address] [place], [address] RBC 0 SEEN Normal 0-5 [facility] Comment on above: Order Comment: LUCILLE CTOR TO SPECIFY Performed By: #### L 400.0001 #### [facility] [address] [place], [address] WBC 0 SEEN Normal 0-5 [facility] Comment on above: Order Comment: LUCILLE CTOR TO SPECIFY Performed By: #### L 400.0001 #### [facility] [address] [place], [place], [address] Urine clarityOrdered By: Ramsey Mclaughlin on 10-28-2024 Clarity (U) Clear Clear [facility] Urine color determinationOrd ered By: Robby Mclaughlin on 10-28-2024 Color (U) Yellow Yellow [facility] Urine glucose detectionOrder ed By: Robby Mclaughlin on 10-28-2024 Glucose Ql (U) Normal mg/dl Normal [facility] Urine leukocyte esterase det ection by dipstickOrdered By: Robby Mclaughlin on 10-28-2024 Leukocyte esterase Test strip Ql (U) Negative Negative [facility] Urine pHOrdered By: Robby woodard on 10-28-2024 pH (U) 7.0 [pH] 5.0 - 8.0 [facility] Urine sediment bacteria coun t by microscopy (number/high power field)Ordered By: Robby Mclaughlin on 10-28-2024 Bacteria LM.HPF (Urine sed) [#/Area] 0 /[HPF] None Seen [facility] Urine specific gravity measu rementOrdered By: Robby Mclaughlin on 10-28-2024 Specific gravity (U) [Rel density] 1.010 1.002-1.03 0 [facility] Urine urobilinogen measureme ntOrdered By: Robby Mclaughlin on 10-28-2024 Urobilinogen Ql (U) Normal mg/dl Normal [facility] White blood cell (WBC) count Ordered By: Robby Mclaughlin on 10-28-2024 WBC (Bld) [#/Vol] 4.1 10*3/uL Low 4.4-11.0 [facility] White blood cell countOrdere d By: Robby Mclaughlin on 10-28-2024 White blood cell count 0 SEEN /hpf 0-5 [facility] CNOVon 10-21-2024 CN Office Visit ([facility] ) LAZARO GARZON ([id number]) 1955 M Date Time Provider Department 10/21/24 9:00 AM JAGJIT [facility] During your visit today, we recorded the [...] was copied and pasted, without alteration from rustov: Asked him to come back because he [...] Lymph 1.00 - 4.00 k/uL 0.91 (L) [place]% % 9.0 Abs [place] <0.87 k/uL 0.40 Eosin% % 1.4 Abs [...] Pulmonary embolis (more content not included)... Normal [facility] Platelets Auto (Bld) [#/Vol] on 10-18-2024 Platelets (Bld) [#/Vol] 136 10*3/uL Low 150-400 [facility] Comment on above: Order Comment: Speci men Type: BLOOD SPECIMENOrdering Facility: [facility] Address: [address] [place] [address] Performed By: #### 7 77-3 ####[facility] [id number] [address] Wade 09-27-2024 CNPN Telephone (INTMWS) LAZARO GARZON ([id number]) 1955 M Date Time Provider Department 09/27/24 [...] Date Reviewed: 09/23/2024 Reviewed by: Runkle, Brandie, APPLIED BEHAVIOR SCIENCE SPECIALIST - Fully Assessed Reason for Visit: Medication [...] of i (more content not included)... Normal [facility] CNOVon 09-23-2024 CNOV Office Visit (FAMPWS ) LAZARO GARZON ([id number]) 1955 M Date Time Provider Department 09/23/24 [...] Right 1988 LAPS SURG CHOLECYSTECTOMY W/CHOLANGIOGRAPHY 2004 [facility] - Dr. 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 EPIGASTRIC HERNIA,REDUC 07/19/2023 umbilical TONSILLECTOMY PRIMARY/SECONDARY Tonsillectomy FAMILY HISTORY Problem Relation Age of Onset Hypertension Mother Heart Mother Stroke Mother Allergies Mother Breast Cancer Mother Heart Father of [place] Allergies Father Asthma Daughter Allergies Sister Allergies [...] Used Substan (more content not included)... Normal [facility] Wade 09-19-2024 ILYA Telephone (PUMBHT) DURANLAZARO Trujillo ([id number]) 1955 M Date Time Provider Department 09/19/24 [...] [R53.83] 10/30/2013 (more content not included)... Normal [facility] CBC W Auto Differential pane l (Bld)on 09-17-2024 Basophils (Bld) [#/Vol] 0.03 10*3/uL Normal <0.11 [facility] Comment on above: Order Comment: Speci men Type: BLOOD SPECIMENOrdering Facility: [facility] Address: [address] [place] [address] Performed By: #### 5 7021-8, 4536-7 ####[facility] [id number] [place] [address] [place] Basophils/100 WBC (Bld) 0.7 % Normal [facility] Comment on above: Order Comment: Speci men Type: BLOOD SPECIMENOrdering Facility: [facility] Address: [address] [place] [address] Performed By: #### 5 7021-8, 4536-7 ####[facility] [id number] [place] [address] [place] Differential cell count method Nom (Bld) Auto Normal [facility] Comment on above: Order Comment: Speci men Type: BLOOD SPECIMENOrdering Facility: [facility] Address: [address] [place] [address] Performed By: #### 5 7021-8, 4536-7 ####[facility] [id number] [place] [address] [place] Eosinophils (Bld) [#/Vol] 0.06 10*3/uL Normal <0.46 [facility] Comment on above: Order Comment: Speci men Type: BLOOD SPECIMENOrdering Facility: [facility] Address: [address] [place] [address] Performed By: #### 5 7021-8, 7-7 ####[facility] [id number] [place] [address] [place] MARCUS Eosinophils/100 WBC (Bld) 1.4 % Normal [facility] Comment on above: Order Comment: Speci men Type: BLOOD SPECIMENOrdering Facility: [facility] Address: [address] [place] [address] Performed By: #### 5 7021-8, 7-7 ####[facility] [facility] [id number] [place] [address] [place] Erythrocyte distribution width (RBC) [Ratio] 13.4 % Normal 11.5-15.0 [facility] Comment on above: Order Comment: Speci men Type: BLOOD SPECIMENOrdering Facility: [facility] Address: [address] [place] [address] Performed By: #### 5 7021-8, 4537-7 ####[facility] [id number] [place] [address] [place] Hematocrit (Bld) [Volume fraction] 46.8 % Normal 39.0-51.0 [facility] Comment on above: Order Comment: Speci men Type: BLOOD SPECIMENOrdering Facility: [facility] Address: [address] [place] [address] Performed By: #### 5 7021-8, 4536-7 ####[facility] [facility] [id number] [place] [address] [place] Hemoglobin (Bld) [Mass/Vol] 15.6 g/dL Normal 13.0-17.0 [facility] Comment on above: Order Comment: Speci men Type: BLOOD SPECIMENOrdering Facility: [facility] Address: [address] [place] [address] Performed By: #### 5 7021-8, 7-7 ####[facility] [facility] [id number] [facility] [place] [address] [place] Immature granulocytes (Bld) [#/Vol] 10*3/uL Normal <0.10 [facility] Comment on above: Order Comment: Speci men Type: BLOOD SPECIMENOrdering Facility: [facility] Address: [address] [place] [address] Performed By: #### 5 7021-8, 4536-7 ####[facility] [id number] [place] [address] [place] Immature granulocytes/100 WBC (Bld) 0.2 % Normal [facility] Comment on above: Order Comment: Speci men Type: BLOOD SPECIMENOrdering Facility: [facility] Address: [address] [place] [address] Performed By: #### 5 7021-8, 7 ####[facility] [id number] [place] [address] [place] Lymphocytes (Bld) [#/Vol] 0.91 10*3/uL Low 1.00-4.00 [facility] Comment on above: Order Comment: Speci men Type: BLOOD SPECIMENOrdering Facility: [facility] Address: [address] [place] [address] Performed By: #### 5 7021-8, 7 ####[facility] [id number] [place] [address] [place] Lymphocytes/100 WBC (Bld) 20.5 % Normal [facility] Comment on above: Order Comment: Speci men Type: BLOOD SPECIMENOrdering Facility: [facility] Address: [address] [place] [address] Performed By: #### 5 7021-8, 4536-7 ####[facility] [id number] [place] [address] [place] MCH (RBC) [Entitic mass] 28.6 pg Normal 26.0-34.0 [facility] Comment on above: Order Comment: Speci men Type: BLOOD SPECIMENOrdering Facility: [facility] Address: [address] [place] [address] Performed By: #### 5 7021-8, 4536-7 ####[facility] [id number] [place] [address] [place] MCHC (RBC) [Mass/Vol] 33.3 g/dL Normal 30.5-36.0 [facility] Comment on above: Order Comment: Speci men Type: BLOOD SPECIMENOrdering Facility: [facility] Address: [address] [place] [address] Performed By: #### 5 7021-8, 4536-7 ####[facility] [facility] [id number] [place] [address] [place] MCV (RBC) [Entitic vol] 85.7 fL Normal 80.0-100.0 [facility] Comment on above: Order Comment: Speci men Type: BLOOD SPECIMENOrdering Facility: [facility] Address: [address] [place] [address] Performed By: #### 5 7021-8, 7 ####[facility] [id number] [place] [address] [place] Monocytes (Bld) [#/Vol] 0.40 10*3/uL Normal <0.87 [facility] Comment on above: Order Comment: Speci men Type: BLOOD SPECIMENOrdering Facility: [facility] Address: [address] [place] [address] Performed By: #### 5 7021-8, 7 ####[facility] [id number] [place] [address] [place] Monocytes/100 WBC (Bld) 9.0 % Normal [facility] Comment on above: Order Comment: Speci men Type: BLOOD SPECIMENOrdering Facility: [facility] Address: [address] [place] [address] Performed By: #### 5 7021-8, 4536-7 ####[facility] [id number] [place] [address] [place] Neutrophils (Bld) [#/Vol] 3.02 10*3/uL Normal 1.45-7.50 [facility] Comment on above: Order Comment: Speci men Type: BLOOD SPECIMENOrdering Facility: [facility] Address: [address] [place] [address] Performed By: #### 5 7021-8, 4537-7 ####[facility] [id number] [place] [address] [place] Neutrophils/100 WBC (Bld) 68.2 % Normal [facility] Comment on above: Order Comment: Speci men Type: BLOOD SPECIMENOrdering Facility: [facility] Address: [address] [place] [address] Performed By: #### 5 7021-8, 4537-7 ####[facility] [id number] [place] [address] [place] Nucleated RBC (Bld) [#/Vol] 10*3/uL Normal <0.01 [facility] Comment on above: Order Comment: Speci men Type: BLOOD SPECIMENOrdering Facility: [facility] Address: [address] [place] [address] Performed By: #### 5 7021-8, 4537-7 ####[facility] [facility] [id number] [place] [address] [place] Nucleated RBC/100 WBC (Bld) [Ratio] 0.0 /100 WBC Normal [facility] Comment on above: Order Comment: Speci men Type: BLOOD SPECIMENOrdering Facility: [facility] Address: [address] [place] [address] Performed By: #### 5 7021-8, 4537-7 ####[facility] [id number] [place] [address] [place] Platelet mean volume (Bld) [Entitic vol] 11.7 fL Normal 9.0-12.7 [facility] Comment on above: Order Comment: Speci men Type: BLOOD SPECIMENOrdering Facility: [facility] Address: [address] [place] [address] Performed By: #### 5 7021-8, 4537-7 ####[facility] [id number] [place] [address] [place] Platelets (Bld) [#/Vol] 143 10*3/uL Low 150-400 [facility] Comment on above: Order Comment: Speci men Type: BLOOD SPECIMENOrdering Facility: [facility] Address: [address] [place] [address] Performed By: #### 5 7021-8, 4537-7 ####[facility] [id number] [place] [address] [place] RBC (Bld) [#/Vol] 5.46 10*6/uL Normal 4.20-6.00 [facility] Comment on above: Order Comment: Speci men Type: BLOOD SPECIMENOrdering Facility: [facility] Address: [address] [place] [address] Performed By: #### 5 7021-8, 4537-7 ####[facility] [facility] [id number] [place] [address] [place] WBC (Bld) [#/Vol] 4.43 10*3/uL Normal 3.70-11.00 [facility] Comment on above: Order Comment: Speci men Type: BLOOD SPECIMENOrdering Facility: [facility] Address: [address] [place] [address] Performed By: #### 5 7021-8, 4537-7 ####[facility] [facility] [id number] [facility] [address] [place] [address] [place] Comprehensive metabolic 2000 panelon 09-17-2024 Albumin [Mass/Vol] 4.4 g/dL Normal 3.9-4.9 [facility] Comment on above: Order Comment: Speci men Type: BLOOD SPECIMENOrdering Facility: [facility] Address: [address] [place] [address] Performed By: #### 2 4323-8, T4FTI, 04827-6 ####[facility] [id number] [place] [address] [place] ALP [Catalytic activity/Vol] 71 U/L Normal 38-113 [facility] Comment on above: Order Comment: Speci men Type: BLOOD SPECIMENOrdering Facility: [facility] Address: [address] [place] [address] Performed By: #### 2 4323-8, T4FTI, 83719-0 ####[facility] [id number] [place] [address] [place] ALT [Catalytic activity/Vol] 31 U/L Normal 10-54 [facility] Comment on above: Order Comment: Speci men Type: BLOOD SPECIMENOrdering Facility: [facility] Address: [address] [place] [address] Performed By: #### 2 4323-8, T4FTI, 04140-0 ####[facility] [id number] [place] [id number] [place] Anion gap [Moles/Vol] 13 mmol/L Normal 8-15 [facility] Comment on above: Order Comment: Speci men Type: BLOOD SPECIMENOrdering Facility: [facility] Address: [address] [place] [address] Performed By: #### 2 4323-8, T4FTI, 27673-6 ####[facility] [id number] [place] [id number] [place] AST [Catalytic activity/Vol] 25 U/L Normal 14-40 [facility] Comment on above: Order Comment: Speci men Type: BLOOD SPECIMENOrdering Facility: [facility] Address: [address] [place] [address] Performed By: #### 2 4323-8, T4FTI, 20636-6 ####[facility] [id number] [place] [address] [place] Bilirubin [Mass/Vol] 1.0 mg/dL Normal 0.2-1.3 [facility] Comment on above: Order Comment: Speci men Type: BLOOD SPECIMENOrdering Facility: [facility] Address: [address] [place] [address] Performed By: #### 2 4323-8, T4FTI, 99196-2 ####[facility] [id number] [place] [address] [place] Calcium [Mass/Vol] 9.7 mg/dL Normal 8.5-10.2 [facility] Comment on above: Order Comment: Speci men Type: BLOOD SPECIMENOrdering Facility: [facility] Address: [address] [place] [address] Performed By: #### 2 4323-8, T4FTI, 46790-9 ####[facility] [id number] [place] [address] [place] Chloride [Moles/Vol] 104 mmol/L Normal 98-107 [facility] Comment on above: Order Comment: Speci men Type: BLOOD SPECIMENOrdering Facility: [facility] Address: [address] [place] [address] Performed By: #### 2 4323-8, T4FTI, 15210-5 ####[facility] [id number] [place] [id number] [place] CO2 [Moles/Vol] 24 mmol/L Normal 22-30 [facility] Comment on above: Order Comment: Speci men Type: BLOOD SPECIMENOrdering Facility: [facility] Address: [address] [place], [place] [address] Performed By: #### 2 4323-8, T4, ####[facility] [id number] [place] [id number] [place] Creatinine [Mass/Vol] 1.00 mg/dL Normal 0.73-1.22 [facility] Comment on above: Order Comment: Dunia peters Type: BLOOD SPECIMENOrdering Facility: [facility] Address: [address] [place] [address] Performed By: #### 2 4323-8, T4, 03214-7 ####[facility] [facility] [id number] [place] [address] [place] Creatinine and Glomerular filtration rate.predicted panel (S/P/Bld) 83 mL/min/1.73m??? Normal >=60 [facility] Comment on above: Order Comment: Dunia peters Type: BLOOD SPECIMENOrdering Facility: [facility] Address: [address] [place] [address] Result Comment: Jayshree mated Glomerular Filtration Rate [...] GFR. Performed By: #### 2 4323-8, T4, ####[facility] [id number] [address] [address] [place] Glucose [Mass/Vol] 117 mg/dL High 74-99 [facility] Comment on above: Order Comment: Dunia peters Type: BLOOD SPECIMENOrdering Facility: [facility] Address: [address] [place] [address] Result Comment: The [place] Diabetes Association (ADA) provides guidance for cutoff [...] Standards of Medical Care in Diabetes 2016, [place] [employer]. Diabetes Care. 2016.39(Suppl 1). Performed By: #### 2 432-8, T4FTI, 22534-4 ####[facility] [id number] [place] [address] [place] Potassium [Moles/Vol] 4.1 mmol/L Normal 3.7-5.1 [facility] Comment on above: Order Comment: Speci men Type: BLOOD SPECIMENOrdering Facility: [facility] Address: [address] [place] [address] Performed By: #### 2 4328, T4FT, ####[facility] [id number] [place] [address] [place] Protein [Mass/Vol] 7.4 g/dL Normal 6.3-8.0 [facility] Comment on above: Order Comment: Speci men Type: BLOOD SPECIMENOrdering Facility: [facility] Address: [address] [place] [address] Performed By: #### 2 432-8, T4FT, ####[facility] [facility] [id number] [place] [id number] [place] Sodium [Moles/Vol] 141 mmol/L Normal 136-144 [facility] Comment on above: Order Comment: Speci men Type: BLOOD SPECIMENOrdering Facility: [facility] Address: [address] [place] [address] Performed By: #### 2 4323-8, T4FTI, 38817-7 ####[facility] [id number] [place] [address] [place] Urea nitrogen [Mass/Vol] 12 mg/dL Normal 9-24 [facility] Comment on above: Order Comment: Speci men Type: BLOOD SPECIMENOrdering Facility: [facility] Address: [address] [place] [address] Performed By: #### 2 4323-8, T4FTI, 78678-8 ####[facility] [facility] [id number] [place] [address] [place] ESR Westergren method (Bld) [Velocity]on 09-17-2024 ESR (Bld) [Velocity] 16 mm/h High 0-15 [facility] Comment on above: Order Comment: Speci men Type: BLOOD SPECIMENOrdering Facility: [facility] Address: [address] [place] [address] Performed By: #### 5 7021-8, 4537-7 ####[facility] [facility] [id number] [place] [address] [place] Lipid 1996 panelon 5 Cholesterol [Mass/Vol] 134 mg/dL Normal <200 [facility] Comment on above: Order Comment: Speci men Type: BLOOD SPECIMENOrdering Facility: [facility] Address: [address] [place] [address] Result Comment: <200 mg/dL, Desirable 200-239 mg/dL, Borderline high >239 mg/dL, High Performed By: #### 2 4323-8, T4FTI, 48145-4 ####[facility] [facility] [id number] [place] [address] [place] Cholesterol in HDL [Mass/Vol] 30 mg/dL Low >39 [facility] Comment on above: Order Comment: Speci men Type: BLOOD SPECIMENOrdering Facility: [facility] Address: [address] [place] [address] Result Comment: 40-5 9 mg/dL, Acceptable >59 mg/dL, High: Negative risk factor for coronary heart disease <40 mg/dL, Low: Positive risk factor for coronary heart disease Performed By: #### 2 4323-8, T4FT, ####[facility] [id number] [address] [address] [place] Cholesterol in LDL [Mass/Vol] 46 mg/dL Normal <100 [facility] Comment on above: Order Comment: Speci men Type: BLOOD SPECIMENOrdering Facility: [facility] Address: [address] [place] [address] Result Comment: <100 mg/dL, Optimal 100-129 mg/dL, Near optimal/above optimal 130-159 mg/dL, Borderline high 160-189 mg/dL, High >189 mg/dL, Very high Secondary prevention optimal LDL Cholesterol levels are recommended to be < 70 mg/dL Performed By: #### 2 4323-8, T4, ####[facility] [id number] [address] [place] Cholesterol in LDL/Cholesterol in HDL [Mass ratio] 1.53 {ratio} Normal <2.54 [facility] Comment on above: Order Comment: Paragi men Type: BLOOD SPECIMENOrdering Facility: [facility] Address: [address] [place] [address] Result Comment: Refe rence: 1. National Cholesterol Education Program ATP III Guideline At-A-Glance Quick Desk Reference: National Heart, Lung, and Blood [place]. National Institutes of Health. 2001: NIH Publication No. 01-3305. 2. An International Atherosclerosis Society position paper: global recommendations for the management of dyslipidemia: executive summary, Atherosclerosis. 2014: 232(2):410-413. Performed By: #### 2 4323-8, T4FTI, ####[facility] [id number] [address] [place] Cholesterol in VLDL [Mass/Vol] 58 mg/dL High <30 [facility] Comment on above: Order Comment: Speci men Type: BLOOD SPECIMENOrdering Facility: [facility] Address: [address] [place], [place] [address] Performed By: #### 2 432-8, T4FT, ####[facility] [id number] [address] [place] [address] [place] Cholesterol non HDL [Mass/Vol] 104 mg/dL Normal <130 [facility] Comment on above: Order Comment: Speci men Type: BLOOD SPECIMENOrdering Facility: [facility] Address: [address] [place] [address] Result Comment: <130 mg/dL, Optimal 130-159 mg/dL, Near optimal/above optimal 160-189 mg/dL, Borderline high 190-219 mg/dL, High >219 mg/dL, Very high Secondary prevention optimal non HDL Cholesterol levels are recommended to be <100 mg/dL Performed By: #### 2 4328, T4, ####[facility] [id number] [address] [address] [place] Cholesterol.total/Cho lesterol in HDL [Mass ratio] 4.47 {ratio} Normal <5.10 [facility] Comment on above: Order Comment: Speci men Type: BLOOD SPECIMENOrdering Facility: [facility] Address: [address] [place] [address] Performed By: #### 2 4323-8, T4, ####[facility] [id number] [address] [place] [address] [place] FASTING TIME 12 hrs Normal [facility] Comment on above: Order Comment: Speci men Type: BLOOD SPECIMENOrdering Facility: [facility] Address: [address] [place] [address] Performed By: #### 2 4323-8, T4, ####[facility] [id number] [address] [place] [address] [place] Triglyceride [Mass/Vol] 292 mg/dL High <150 [facility] Comment on above: Order Comment: Speci men Type: BLOOD SPECIMENOrdering Facility: [facility] Address: [address] [place] [address] Result Comment: <150 mg/dL, Normal 150-199 mg/dL, Borderline high 200-499 mg/dL, High >499 mg/dL, Very high Performed By: #### 2 4323-8, T4FTI, 59165-2 ####[facility] [id number] [place] [address] [place] T4/FTI/T4Uon 09-17-2024 FTI 6.0 ug/dL Normal 5.3-10.8 [facility] Comment on above: Order Comment: Speci men Type: BLOOD SPECIMENOrdering Facility: [facility] Address: [address] [place] [address] Performed By: #### 2 432-8, T4FTI, 73293-8 ####[facility] [id number] [place] [address] [place] T4 [Mass/Vol] 6.8 ug/dL Normal 5.5-10.2 [facility] Comment on above: Order Comment: Speci men Type: BLOOD SPECIMENOrdering Facility: [facility] Address: [address] [place] [address] Performed By: #### 2 4323-8, T4FTI, 10100-4 ####[facility] [facility] [id number] [place] [address] [place] T4 uptake [Mass/Vol] 1.13 Normal 0.91-1.19 [facility] Comment on above: Order Comment: Speci men Type: BLOOD SPECIMENOrdering Facility: [facility] Address: [address] [place] [address] Performed By: #### 2 4323-8, T4FTI, 03740-4 ####[facility] [facility] [id number] [place] [id number] [place] TSH SerPl-aCncon 09-17-2024 TSH Qn 2.780 m[IU]/L Normal 0.270-4.20 0 [facility] Comment on above: Order Comment: Speci men Type: BLOOD SPECIMENOrdering Facility: [facility] Address: [address] [place] [address] Performed By: #### 3 016-3 ####[facility] [id number] [place] [id number] [place] CNOVon 09-11-2024 CNOV Office Visit (FAMPWS ) LAZARO GARZON ([id number]) 1955 M Date Time Provider Department 09/11/24 [...] checked by Dr Ramos, urology. Still seeing [facility]. MEDICATIONS: Current Outpatient Medications Medication [...] CHOLECYSTECTOMY W/CHOLANGIOG (more content not included)... Normal [facility] Cardiology Visit Reporton Cardiology Visit Report [facility] 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 [facility] 07-12-2024 [facility] Telephone (FAMPWS) DURANLAZARO MCFARLANE ([id number]) 1955 M Date Time Provider Department 07/12/24 [...] 07/26/2023 Diagnosed: 07/26/2023 No response to treatment [[id number]] 07/26/2023 07/26/2023 Diagnosed: 07/26/2023 Otitis externa [H60.90] 07/26/2023 07/26/2023 Diagnosed: 07/26/2023 Postprocedural state [Z98.890] 07/26/2023 07/26/2023 Diagnosed: 07/26/2023 Presence of stent in coronary artery [Z95.5] 07/26/2023 Diagnosed: 07/26/2023 Status post coronary seymour (more content not included)... Normal [facility] CNOVon 07-08-2024 CNOV Office Visit (FAMPWS ) LAZARO GARZON ([id number]) 1955 Date Time Provider Department 07/08/24 9:00 [...] Abs Lymph 1.00 - 4.00 k/uL 1.20 [place]% % 8.1 Abs [place] <0.87 k/uL 0.60 [place]% % 0.9 Abs [...] Right 1988 LAPS SURG CHOLECYSTECTOMY W/CHOLANGIOGRAPHY 2004 [facility] - Dr. Bales OPEN REPAIR OF ROTATOR CUFF ACUTE Rotator cuff repair PERCUTANEOUS CORONARY INTERVENTION 2007 stent to LAD REPAIR EPIGASTRIC HERNIA,REDUC 07/19/2023 umbilical TONSILLECTOMY PRIMARY/SECONDARY Tonsillectomy FAMILY HISTORY Problem Relation Age of Onset Hypertension Mother Heart Mother Stroke Mother Allergies Mother Breast Cancer Mother Heart Father of [place] Allergies Father Asthma Daughter Allergies Sister Allergies [...] current m (more content not included)... Normal [facility] HbA1c (Bld)on 07-08-2024 Average glucose Estimated from glycated hemoglobin (Bld) [Mass/Vol] 103 mg/dL Normal [facility] Comment on above: Order Comment: Dunia peters Type: BLOOD SPECIMENOrdering Facility: [facility] Address: [address] [place] [address] Result Comment: eAG: (Estimated average glucose) is a calculated value from HgbA1c and is enrollment representative of the average blood glucose level in the last 2-3 month period. Performed By: #### 5 5454-3 ####[facility] [facility] [id number] [place] [address] [place] HbA1c (Bld) [Mass fraction] 5.2 % Normal 4.3-5.6 [facility] Comment on above: Order Comment: Dunia peters Type: BLOOD SPECIMENOrdering Facility: [facility] Address: [address] [place] [address] Result Comment: Amer ican Diabetes Association guidelines indicate that patients with HgbA1c in the range 5.7-6.4% are at increased risk for development of diabetes, and intervention by lifestyle modification may be beneficial. HgbA1c greater or equal to 6.5% is considered diagnostic of diabetes. Performed By: #### 5 5454-3 ####[facility] [facility] [id number] [place] [address] [place] POTASSIUMon 07-08-2024 Potassium [Moles/Vol] 4.1 mmol/L Normal 3.7-5.1 [facility] Comment on above: Order Comment: Dunia peters Type: BLOOD SPECIMENOrdering Facility: [facility] Address: [address] [place] [address] Performed By: #### K 1 ####[facility] [facility] [id number] [place] [address] [place] XR CHEST 2V [...] hazy opacities in the left lower lung. Batting Machine Operator Insulation: [facility] Transcribe Date/Time: Jul 08 2024 11:41A Dictated by : LETTY THOMAS MD This examination was interpreted and the report reviewed and electronically signed by: LETTY THOMAS MD on Jul 08 2024 11:43AM EST [id number] Normal [facility] XR Chest PA and Lateralon IMPRESSION: Interval resolution/near total resolution of small hazy opacities in the left lower lung. Batting Machine Operator Insulation: [facility] Transcribe Date/Time: Jul 08 2024 [...] hazy opacities in the left lower lung. Batting Machine Operator Insulation: [facility] Transcribe Date/Time: Jul 08 2024 11:41A Dictated by : LETTY THOMAS MD This examination was interpreted and the report reviewed and electronically signed by: LETTY THOMAS MD on Jul 08 2024 11:43AM EST [facility] Radiology Study observation (narrative) [facility] XR Chest PA and LateralOrder ed By: Cc Provider on 07-08-2024 [facility] LAZARO GARZON ([id number]) 1955 M Date Time Provider Department 06/25/24 JAJGIT CHEEMA During your visit today, we recorded [...] Visit Diagnosis:Hypokalemia [E87.6] Order(s):POTASSIUM [SQK1] Order #: [id number] FUTURE HEMOGLOBIN A1C [RGOAQ8X] Order #: [id number] FUTURE Prescriptions as of 06/25/2024 - doxycycline [...] Abnormal card (more content not included)... Normal [facility] Basic metabolic 2000 panelon 06-24-2024 Anion gap [Moles/Vol] 13 mmol/L Normal 8-15 [facility] Comment on above: Order Comment: Speci men Type: BLOOD SPECIMENOrdering Facility: [facility] Address: [address] [place] [address] Performed By: #### 2 4321-2 ####[facility] [facility] [id number] [facility] [id number] [address] [place] Calcium [Mass/Vol] 9.6 mg/dL Normal 8.5-10.2 [facility] Comment on above: Order Comment: Speci men Type: BLOOD SPECIMENOrdering Facility: [facility] Address: [address] [place] [address] Performed By: #### 2 4321-2 ####[place] [facility] [id number] [place] [address] [place] Chloride [Moles/Vol] 100 mmol/L Normal 98-107 [facility] Comment on above: Order Comment: Speci men Type: BLOOD SPECIMENOrdering Facility: [facility] Address: [address] [place] [address] Performed By: #### 2 4321-2 ####[facility] [facility] [id number] [place] [address] [place] CO2 [Moles/Vol] 25 mmol/L Normal 22-30 [facility] Comment on above: Order Comment: Speci men Type: BLOOD SPECIMENOrdering Facility: [facility] Address: [address] [place] [address] Performed By: #### 2 4321-2 ####[facility] [facility] [id number] [place] [address] [place] Creatinine [Mass/Vol] 1.11 mg/dL Normal 0.73-1.22 [facility] Comment on above: Order Comment: Speci men Type: BLOOD SPECIMENOrdering Facility: [facility] Address: [address] [place] [address] Performed By: #### 2 4321-2 ####[facility] [facility] [id number] [place] [address] [place] Creatinine and Glomerular filtration rate.predicted panel (S/P/Bld) 73 mL/min/1.73m??? Normal >=60 [facility] Comment on above: Order Comment: Speci men Type: BLOOD SPECIMENOrdering Facility: [facility] Address: [address] [place] [address] Result Comment: Jayshree mated Glomerular Filtration Rate [...] actual GFR. Performed By: #### 2 4321-2 ####[facility] [facility] [id number] [place] [address] [place] Glucose [Mass/Vol] 167 mg/dL High 74-99 [facility] Comment on above: Order Comment: Dunia peters Type: BLOOD SPECIMENOrdering Facility: [facility] Address: [address] [place] [address] Result Comment: The [place] Diabetes Association (ADA) provides guidance for cutoff [...] Standards of Medical Care in Diabetes 2016, [place] Diabetes Association. Diabetes Care. 2016.39(Suppl 1). Performed By: #### 2 4321-2 ####[facility] [facility] [id number] [place] [address] [place] Potassium [Moles/Vol] 3.6 mmol/L Low 3.7-5.1 [facility] Comment on above: Order Comment: Dunia peters Type: BLOOD SPECIMENOrdering Facility: [facility] Address: [address] [place] [address] Performed By: #### 2 4321-2 ####[facility] [facility] [id number] [place] [address] [place] Sodium [Moles/Vol] 138 mmol/L Normal 136-144 [facility] Comment on above: Order Comment: Speci men Type: BLOOD SPECIMENOrdering Facility: [facility] Address: [address] [place] [address] Performed By: #### 2 4321-2 ####[facility] [facility] [id number] [place] [address] [place] Urea nitrogen [Mass/Vol] 17 mg/dL Normal 9-24 [facility] Comment on above: Order Comment: Speci men Type: BLOOD SPECIMENOrdering Facility: [facility] Address: [address] [place] [address] Performed By: #### 2 4321-2 ####[facility] [id number] [place] [address] [place] CBC W Auto Differential pane l (Bld)on 06-24-2024 Basophils (Bld) [#/Vol] 0.04 10*3/uL Normal <0.11 [facility] Comment on above: Order Comment: Speci men Type: BLOOD SPECIMENOrdering Facility: [facility] Address: [address] [place] [address] Performed By: #### 5 7021-8 ####[facility] [facility] [id number] [place] [address] [place] Basophils/100 WBC (Bld) 0.5 % Normal [facility] Comment on above: Order Comment: Speci men Type: BLOOD SPECIMENOrdering Facility: [facility] Address: [address] [place] [address] Performed By: #### 5 7021-8 ####[facility] [id number] [place] [address] [place] Differential cell count method Nom (Bld) Auto Normal [facility] Comment on above: Order Comment: Speci men Type: BLOOD SPECIMENOrdering Facility: [facility] Address: [address] [place] [address] Performed By: #### 5 7021-8 ####[facility] [id number] [place] [address] [place] Eosinophils (Bld) [#/Vol] 0.07 10*3/uL Normal <0.46 [facility] Comment on above: Order Comment: Speci men Type: BLOOD SPECIMENOrdering Facility: [facility] Address: [address] [place] [address] Performed By: #### 5 7021-8 ####[facility] [id number] [place] [address] [place] Eosinophils/100 WBC (Bld) 0.9 % Normal [facility] Comment on above: Order Comment: Speci men Type: BLOOD SPECIMENOrdering Facility: [facility] Address: [address] [place] [address] Performed By: #### 5 7021-8 ####[facility] [id number] [place] [address] [place] Erythrocyte distribution width (RBC) [Ratio] 13.3 % Normal 11.5-15.0 [facility] Comment on above: Order Comment: Speci men Type: BLOOD SPECIMENOrdering Facility: [facility] Address: [address] [place] [address] Performed By: #### 5 7021-8 ####[facility] [id number] [place] [address] [place] Hematocrit (Bld) [Volume fraction] 49.5 % Normal 39.0-51.0 [facility] Comment on above: Order Comment: Speci men Type: BLOOD SPECIMENOrdering Facility: [facility] Address: [address] [place] [address] Performed By: #### 5 7021-8 ####[facility] [id number] [place] [address] [place] Hemoglobin (Bld) [Mass/Vol] 16.4 g/dL Normal 13.0-17.0 [facility] Comment on above: Order Comment: Speci men Type: BLOOD SPECIMENOrdering Facility: [facility] Address: [address] [place] [address] Performed By: #### 5 7021-8 ####[facility] [id number] [place] [address] [place] Immature granulocytes (Bld) [#/Vol] 0.03 10*3/uL Normal <0.10 [facility] Comment on above: Order Comment: Speci men Type: BLOOD SPECIMENOrdering Facility: [facility] Address: [address] [place] [address] Performed By: #### 5 7021-8 ####[facility] [id number] [place] [address] [place] Immature granulocytes/100 WBC (Bld) 0.4 % Normal [facility] Comment on above: Order Comment: Speci men Type: BLOOD SPECIMENOrdering Facility: [facility] Address: [address] [place] [address] Performed By: #### 5 7021-8 ####[facility] [id number] [place] [address] [place] Lymphocytes (Bld) [#/Vol] 1.20 10*3/uL Normal 1.00-4.00 [facility] Comment on above: Order Comment: Speci men Type: BLOOD SPECIMENOrdering Facility: [facility] Address: [address] [place] [address] Performed By: #### 5 7021-8 ####[facility] [id number] [place] [address] [place] Lymphocytes/100 WBC (Bld) 16.3 % Normal [facility] Comment on above: Order Comment: Speci men Type: BLOOD SPECIMENOrdering Facility: [facility] Address: [address] [place] [address] Performed By: #### 5 7021-8 ####[facility] [facility] [id number] [place] [address] [place] MCH (RBC) [Entitic mass] 28.7 pg Normal 26.0-34.0 [facility] Comment on above: Order Comment: Speci men Type: BLOOD SPECIMENOrdering Facility: [facility] Address: [address] [place] [address] Performed By: #### 5 7021-8 ####[facility] [id number] [place] [address] [place] MCHC (RBC) [Mass/Vol] 33.1 g/dL Normal 30.5-36.0 [facility] Comment on above: Order Comment: Speci men Type: BLOOD SPECIMENOrdering Facility: [facility] Address: [address] [place] [address] Performed By: #### 5 7021-8 ####[facility] [id number] [place] [address] [place] MCV (RBC) [Entitic vol] 86.7 fL Normal 80.0-100.0 [facility] Comment on above: Order Comment: Speci men Type: BLOOD SPECIMENOrdering Facility: [facility] Address: [address] [place] [address] Performed By: #### 5 7021-8 ####[place] [facility] [id number] [place] [address] [place] Monocytes (Bld) [#/Vol] 0.60 10*3/uL Normal <0.87 [facility] Comment on above: Order Comment: Speci men Type: BLOOD SPECIMENOrdering Facility: [facility] Address: [address] [place] [address] Performed By: #### 5 7021-8 ####[facility] [id number] [place] [address] [place] Monocytes/100 WBC (Bld) 8.1 % Normal [facility] Comment on above: Order Comment: Speci men Type: BLOOD SPECIMENOrdering Facility: [facility] Address: [address] [place] [address] Performed By: #### 5 7021-8 ####[facility] [id number] [place] [address] [place] Neutrophils (Bld) [#/Vol] 5.44 10*3/uL Normal 1.45-7.50 [facility] Comment on above: Order Comment: Speci men Type: BLOOD SPECIMENOrdering Facility: [facility] Address: [address] [place] [address] Performed By: #### 5 7021-8 ####[facility] [id number] [place] [address] [place] Neutrophils/100 WBC (Bld) 73.8 % Normal [facility] Comment on above: Order Comment: Speci men Type: BLOOD SPECIMENOrdering Facility: [facility] Address: [address] [place] [address] Performed By: #### 5 7021-8 ####[facility] [id number] [place] [address] [place] Nucleated RBC (Bld) [#/Vol] 10*3/uL Normal <0.01 [facility] Comment on above: Order Comment: Speci men Type: BLOOD SPECIMENOrdering Facility: [facility] Address: [address] [place] [address] Performed By: #### 5 7021-8 ####[facility] [id number] [place] [address] [place] Nucleated RBC/100 WBC (Bld) [Ratio] 0.0 /100 WBC Normal [facility] Comment on above: Order Comment: Speci men Type: BLOOD SPECIMENOrdering Facility: [facility] Address: [address] [place] [address] Performed By: #### 5 7021-8 ####[facility] [id number] [place] [address] [place] Platelet mean volume (Bld) [Entitic vol] 11.4 fL Normal 9.0-12.7 [facility] Comment on above: Order Comment: Speci men Type: BLOOD SPECIMENOrdering Facility: [facility] Address: [address] [place] [address] Performed By: #### 5 7021-8 ####[facility] [facility] [id number] [place] [address] [place] Platelets (Bld) [#/Vol] 242 10*3/uL Normal 150-400 [facility] Comment on above: Order Comment: Speci men Type: BLOOD SPECIMENOrdering Facility: [facility] Address: [address] [place] [address] Performed By: #### 5 7021-8 ####[facility] [id number] [place] [address] [place] RBC (Bld) [#/Vol] 5.71 10*6/uL Normal 4.20-6.00 [facility] Comment on above: Order Comment: Speci men Type: BLOOD SPECIMENOrdering Facility: [facility] Address: [address] [place] [address] Performed By: #### 5 7021-8 ####[facility] [facility] [id number] [place] [address] [place] WBC (Bld) [#/Vol] 7.38 10*3/uL Normal 3.70-11.00 [facility] Comment on above: Order Comment: Speci men Type: BLOOD SPECIMENOrdering Facility: [facility] Address: [address] [place] [address] Performed By: #### 5 7021-8 ####[place] [facility] [id number] [place] [address] [place] CNOVon 06-24-2024 CNOV Office Visit (FAMPWS ) DURANLAZARO Trujillo ([id number]) 1955 M Date Time Provider Department 06/24/24 9:00 AM [facility] During your visit today, we recorded the [...] Right 1988 LAPS SURG CHOLECYSTECTOMY W/CHOLANGIOGRAPHY 2004 [facility] - Dr. 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 EPIGASTRIC HERNIA,REDUC 07/19/2023 umbilical TONSILLECTOMY PRIMARY/SECONDARY Tonsillectomy FAMILY HISTORY Problem Relation Age of Onset Hypertension Mother Heart Mother Stroke Mother Allergies Mother Breast Cancer Mother Heart Father of [place] Allergies Father Asthma Daughter Allergies Sister Allergies [...] Use Vap (more content not included)... Normal [facility] D dimer FEU PPP-mCncon 06-24 Fibrin D-dimer FEU (PPP) [Mass/Vol] 290 ng/mL FEU Normal <500 [facility] Comment on above: Order Comment: Speci men Type: BLOOD SPECIMENOrdering Facility: [facility] Address: [address] [place] [address] Performed By: #### 4 8065-7 ####[facility] LABCLIA [id number] [place] [address] [place] [facility] D-DIMERon 06-24-2024 Fibrin D-dimer FEU (PPP) [Mass/Vol] 290 NINF [facility] Fibrin D-dimer FEU (PPP) [Ma ss/Vol]on 06-24-2024 D Dimer Age-related Cutoff 660 ng/mL FEU [facility] 500 ng/mL FEU is the D Dimer [...] et al. Fanny Int Med 2016 165:253. [facility] D DIMER AGE-RELATED CUTOFF 660 ng/mL FEU Normal [facility] Comment on above: Order Comment: Speci men Type: BLOOD SPECIMENOrdering Facility: [facility] Address: [address] [place] [address] Performed By: #### 4 8065-7 ####[place] [facility] [id number] [place] [address] [facility] CNOVon 06-17-2024 CNOV Office Visit (FAMPWS ) LAZARO GARZON ([id number]) 1955 M Date Time Provider Department 06/17/24 [...] Right 1988 LAPS SURG CHOLECYSTECTOMY W/CHOLANGIOGRAPHY 2004 [facility] - Dr. 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 EPIGASTRIC HERNIA,REDUC 07/19/2023 umbilical TONSILLECTOMY PRIMARY/SECONDARY Tonsillectomy FAMILY HISTORY Problem Relation Age of Onset Hypertension Mother Heart Mother Stroke Mother Allergies Mother Breast Cancer Mother Heart Father of [place] Allergies Father Asthma Daughter Allergies Sister Allergies Brother Allergies Daughter Social History Tobacco Use Smoking status: Former Current p (more content not included)... Normal [facility] Wade 06-17-2024 [facility] Telephone (FAMPWS) DURANLAZARO ([id number]) 1955 M Date Time Provider Department 06/17/24 [...] Diagnosed: 02 (more content not included)... Normal [facility] Telephone ([facility]) DURANLAZARO MCFARLANE ([id number]) 1955 M Date Time Provider Department 06/17/24 JAGJIT CHEEMA [facility] During your visit today, we recorded the [...] Fully Assessed Reason for Visit: Patient Question [7955] Orders [681] Prescriptions as of 06/17/2024 - [...] 07/26/2023 Diagno (more content not included)... Normal [facility] XR CHEST 2V FRONTAL/LATon XR CHEST 2V [...] the left lower lung. Consider short-term follow-up. Batting Machine Operator Insulation: [facility] Transcribe Date/Time: Jun 17 2024 3:25P Dictated by : LETTY THOMAS MD This examination was interpreted and the report reviewed and electronically signed by: LETTY THOMAS MD on Jun 17 2024 3:29PM EST [id number] Normal [facility] XR Chest PA and Lateralon IMPRESSION: Small hazy opacities overlying the left lower lung. Consider short-term follow-up. Batting Machine Operator Insulation: [facility] Transcribe Date/Time: Jun 17 2024 3:25P Dictated by : LETTY THOMAS MD This examination was interpreted and the report reviewed and electronically signed by: LETTY THOMAS MD on Jun 17 2024 3:29PM [facility] DIVISION OF RADIOLOGY * * *Final [...] soft tissues: Unremarkable. DIVISION OF RADIOLOGY Provider, [facility] - 06/17/2024 * * *Final Report* [...] the left lower lung. Consider short-term follow-up. Batting Machine Operator Insulation: [facility] Transcribe Date/Time: Jun 17 2024 3:25P Dictated by : LETTY THOMAS MD This examination was interpreted and the report reviewed and electronically signed by: LETTY THOMAS MD on Jun 17 2024 3:29PM [facility] Radiology Study observation (narrative) [facility] XR Chest PA and LateralOrder ed By: Ccf Provider on 06-17-2024 [facility] CNOVon 06-13-2024 CNOV Office Visit (UCWSTR ) LAZARO GARZON ([id number]) 1955 M Date Time Provider Department 06/13/24 4:30 PM CAROLANN LUCAS [facility] During your visit today, we recorded the following information about you: Temperature Pulse Respiration Blood pressure 97.7 degrees 90/minute 16/minute 136/74 Weight 153.1 kg Carolann Lucas APRN.CANDLE MOLDER 06/13/2024 4:18 PM Signed Subjective The history is provided by the patient. No high school foreign language teacher was used. HPI Lazaro Garzon is a [...] have confirmed and edited as necessary, the [facility] Review of Systems Constitutional: Negative [...] detail warranting prompt ER evaluation. Carolann Lucas APRN.CANDLE MOLDER Allergies As of Date: 06/13/2024 Noted Allergy [...] 100 m (more content not included)... Normal [facility] Testosterone, Serum Totalon 06-06-2024 Testosterone [Mass/Vol] 385.78 ng/dL Normal [facility] Comment on above: Result Comment: CENT RAL 90% REFERENCE RANGES MALE AGE <50 197.44 - 669.58 ng/dL MALE AGE > or = 50 187.72 - 684.19 ng/dL FEMALE AGE <50 8.38 - 35.01 ng/dL FEMALE AGE > or = 50 <7.00 - 35.92 ng/dL Effective as of 01/12/21 Performed By: #### L 501.9910, L509.3000 #### [facility] [address] [place], [address] PSA,Total - Annual Screenon 06-04-2024 PSA,TOT SCREEN 3.40 ng/mL Normal 0.00-4.00 [facility] Comment on above: Result Comment: This test was performed using the TPSA assay method for the [employer] chemistry system. Values obtained with different assay methods cannot be used interchangably. When changing PSA assays in the course of monitoring a patient, additional sequential testing should be carried out to confirm baseline values. Performed By: #### L 501.9910, L509.3000 #### [facility] [address] [place], [address] Wade 04-26-2024 [facility] Telephone (PERICO) DURANLAZARO Trujillo ([id number]) 1955 M Date Time Provider Department 04/26/24 LISA JAVED During your visit today, we recorded the following information about you: Lisa Javed APRN.CNP 04/26/2024 10:22 AM Signed Please see if lab can add on A1c. His blood sugar was elevated- if not he will need to come back in. Lisa Javed APRN.Sincere Car RN 04/26/2024 12:40 PM Signed Spoke with Amanda at [facility] Main lab, who states they will be able to add the hgba1c with the blood collected yesterday. Allergies As of Date: 04/26/2024 Noted Allergy Reaction SULFA (SULFONAMIDE ANTIBIOTICS) 03/10/2005 2 - Rash Date Reviewed: 04/25/2024 Reviewed by: Annel Tomlinson MA - Fully Assessed Reason for Visit: Lab add on [Other] Primary Visit Diagnosis:Elevated blood sugar [R73.9] Order(s):HEMOGLOBIN A1C [FQCJC2G] Order #: [id number] FUTURE Prescriptions as of 04/26/2024 - meclizine [...] 07/26/2023 Diagnosed: 07/26/2023 No response to treatment [[id number]] 07/26/2023 07/26/2023 Diagnosed: 07/26/2023 Otitis externa [H60.90] 07/26/2023 07/26/2023 Diagnosed: 07/26/2023 Postprocedural state [Z98.890] 07/26/2023 07/26/2023 Diagnosed: 07/26/2023 Presence of stent in coronary artery [Z95.5] 07/26 (more content not included)... Normal [facility] Bacteria Ur Culton Bacteria identified Cx Nom (U) ORGANISM ID: 1 <10,000 CFU/ml Normal urogenital richard Normal [facility] Comment on above: Performed By: #### 6 30-4 ####[facility] [id number] [place] [address] [place] CBC W Auto Differential pane l (Bld)on 04-25-2024 Basophils (Bld) [#/Vol] 0.03 10*3/uL [facility] Basophils/100 WBC (Bld) 0.5 % [facility] Differential cell count method Nom (Bld) Auto [facility] Eosinophils (Bld) [#/Vol] 0.08 10*3/uL [facility] Eosinophils/100 WBC (Bld) 1.3 % [facility] Erythrocyte distribution width (RBC) [Ratio] 13.0 % 11.5 - 15.0 % [facility] Hematocrit (Bld) [Volume fraction] 45.8 % 39.0 - 51.0 % [facility] Hemoglobin (Bld) [Mass/Vol] 15.3 g/dL 13.0 - 17.0 g/dL [facility] Immature granulocytes (Bld) [#/Vol] [facility] Immature granulocytes/100 WBC (Bld) 0.3 % [facility] Interpretation and review of laboratory results Abnormal [facility] Lymphocytes (Bld) [#/Vol] 0.90 10*3/uL Low [facility] Lymphocytes/100 WBC (Bld) 14.8 % [facility] MCH (RBC) [Entitic mass] 29.2 pg 26.0 - 34.0 pg [facility] MCHC (RBC) [Mass/Vol] 33.4 g/dL 30.5 - 36.0 g/dL [facility] MCV (RBC) [Entitic vol] 87.4 fL 80.0 - 100.0 fL [facility] Monocytes (Bld) [#/Vol] 0.53 10*3/uL NINF [facility] Monocytes/100 WBC (Bld) 8.7 % [facility] Neutrophils (Bld) [#/Vol] 4.54 10*3/uL [facility] Neutrophils/100 WBC (Bld) 74.4 % [facility] Nucleated RBC (Bld) [#/Vol] NINF [facility] Nucleated RBC/100 WBC (Bld) [Ratio] 0.0 % /100 WBC [facility] Platelet mean volume (Bld) [Entitic vol] 11.4 fL 9.0 - 12.7 fL [facility] Platelets (Bld) [#/Vol] 169 10*3/uL [facility] RBC (Bld) [#/Vol] 5.24 10*6/uL 4.20 - 6.00 m/uL [facility] WBC (Bld) [#/Vol] 6.10 10*3/uL [facility] Basophils (Bld) [#/Vol] 0.03 10*3/uL Normal <0.11 [facility] Comment on above: Order Comment: Speci men Type: BLOOD SPECIMENOrdering Facility: [facility] Address: [address] [place] [address] Performed By: #### 5 7021-8, 81848-6 ####[facility] [id number] [address] [place] Basophils/100 WBC (Bld) 0.5 % Normal [facility] Comment on above: Order Comment: Speci men Type: BLOOD SPECIMENOrdering Facility: [facility] Address: [address] [place], [place] [address] Performed By: #### 5 7021-8, 80977-9 ####[facility] [id number] [place] [address] [place] Differential cell count method Nom (Bld) Auto Normal [facility] Comment on above: Order Comment: Speci men Type: BLOOD SPECIMENOrdering Facility: [facility] Address: [address] [place] [address] Performed By: #### 5 7021-8, 14064-9 ####[facility] [id number] [place] [address] [place] Eosinophils (Bld) [#/Vol] 0.08 10*3/uL Normal <0.46 [facility] Comment on above: Order Comment: Speci men Type: BLOOD SPECIMENOrdering Facility: [facility] Address: [address] [place] [address] Performed By: #### 5 7021-8, 25285-2 ####[facility] [id number] [place] [address] [place] Eosinophils/100 WBC (Bld) 1.3 % Normal [facility] Comment on above: Order Comment: Speci men Type: BLOOD SPECIMENOrdering Facility: [facility] Address: [address] [place] [address] Performed By: #### 5 7021-8, 14738-2 ####[facility] [id number] [place] [address] [place] Erythrocyte distribution width (RBC) [Ratio] 13.0 % Normal 11.5-15.0 [facility] Comment on above: Order Comment: Speci men Type: BLOOD SPECIMENOrdering Facility: [facility] Address: [address] [place] [address] Performed By: #### 5 7021-8, 83195-7 ####[facility] [id number] [place] [address] [place] Hematocrit (Bld) [Volume fraction] 45.8 % Normal 39.0-51.0 [facility] Comment on above: Order Comment: Speci men Type: BLOOD SPECIMENOrdering Facility: [facility] Address: [address] [place] [address] Performed By: #### 5 7021-8, 05202-5 ####[facility] [id number] [place] [address] [place] Hemoglobin (Bld) [Mass/Vol] 15.3 g/dL Normal 13.0-17.0 [facility] Comment on above: Order Comment: Speci men Type: BLOOD SPECIMENOrdering Facility: [facility] Address: [address] [place] [address] Performed By: #### 5 7021-8, 22441-6 ####[facility] [facility] [id number] [place] [address] [place] Immature granulocytes (Bld) [#/Vol] 10*3/uL Normal <0.10 [facility] Comment on above: Order Comment: Speci men Type: BLOOD SPECIMENOrdering Facility: [facility] Address: [address] [place] [address] Performed By: #### 5 7021-8, 38305-1 ####[facility] [id number] [place] [address] [place] Immature granulocytes/100 WBC (Bld) 0.3 % Normal [facility] Comment on above: Order Comment: Speci men Type: BLOOD SPECIMENOrdering Facility: [facility] Address: [address] [place] [address] Performed By: #### 5 7021-8, 20847-4 ####[facility] [id number] [place] [address] [place] Lymphocytes (Bld) [#/Vol] 0.90 10*3/uL Low 1.00-4.00 [facility] Comment on above: Order Comment: Speci men Type: BLOOD SPECIMENOrdering Facility: [facility] Address: [address] [place] [address] Performed By: #### 5 7021-8, 85117-1 ####[facility] [id number] [place] [address] [place] Lymphocytes/100 WBC (Bld) 14.8 % Normal [facility] Comment on above: Order Comment: Speci men Type: BLOOD SPECIMENOrdering Facility: [facility] Address: [address] [place] [address] Performed By: #### 5 7021-8, 91843-4 ####[facility] [id number] [place] [address] [place] MCH (RBC) [Entitic mass] 29.2 pg Normal 26.0-34.0 [facility] Comment on above: Order Comment: Speci men Type: BLOOD SPECIMENOrdering Facility: [facility] Address: [address] [place] [address] Performed By: #### 5 7021-8, 57320-4 ####[facility] [id number] [place] [address] [place] MCHC (RBC) [Mass/Vol] 33.4 g/dL Normal 30.5-36.0 [facility] Comment on above: Order Comment: Speci men Type: BLOOD SPECIMENOrdering Facility: [facility] Address: [address] [place] [address] Performed By: #### 5 7021-8, 09942-7 ####[facility] [id number] [place] [address] [place] MCV (RBC) [Entitic vol] 87.4 fL Normal 80.0-100.0 [facility] Comment on above: Order Comment: Speci men Type: BLOOD SPECIMENOrdering Facility: [facility] Address: [address] [place] [address] Performed By: #### 5 7021-8, 02690-4 ####[facility] [id number] [place] [address] [place] Monocytes (Bld) [#/Vol] 0.53 10*3/uL Normal <0.87 [facility] Comment on above: Order Comment: Speci men Type: BLOOD SPECIMENOrdering Facility: [facility] Address: [address] [place] [address] Performed By: #### 5 7021-8, 81105-4 ####[facility] [id number] [place] [address] [place] Monocytes/100 WBC (Bld) 8.7 % Normal [facility] Comment on above: Order Comment: Speci men Type: BLOOD SPECIMENOrdering Facility: [facility] Address: [address] [place] [address] Performed By: #### 5 7021-8, 65750-6 ####[facility] [id number] [place] [address] [place] Neutrophils (Bld) [#/Vol] 4.54 10*3/uL Normal 1.45-7.50 [facility] Comment on above: Order Comment: Speci men Type: BLOOD SPECIMENOrdering Facility: [facility] Address: [address] [place] [address] Performed By: #### 5 7021-8, 69226-1 ####[facility] [id number] [place] [address] [place] Neutrophils/100 WBC (Bld) 74.4 % Normal [facility] Comment on above: Order Comment: Speci men Type: BLOOD SPECIMENOrdering Facility: [facility] Address: [address] [place] [address] Performed By: #### 5 7021-8, 90115-2 ####[facility] [id number] [place] [address] [place] Nucleated RBC (Bld) [#/Vol] 10*3/uL Normal <0.01 [facility] Comment on above: Order Comment: Speci men Type: BLOOD SPECIMENOrdering Facility: [facility] Address: [address] [place] [address] Performed By: #### 5 7021-8, 98025-5 ####[facility] [id number] [place] [address] [place] Nucleated RBC/100 WBC (Bld) [Ratio] 0.0 /100 WBC Normal [facility] Comment on above: Order Comment: Speci men Type: BLOOD SPECIMENOrdering Facility: [facility] Address: [address] [place] [address] Performed By: #### 5 7021-8, 18233-4 ####[facility] [id number] [place] [address] [place] Platelet mean volume (Bld) [Entitic vol] 11.4 fL Normal 9.0-12.7 [facility] Comment on above: Order Comment: Speci men Type: BLOOD SPECIMENOrdering Facility: [facility] Address: [address] [place] [address] Performed By: #### 5 7021-8, 42189-2 ####[facility] [id number] [place] [id number] [place] Platelets (Bld) [#/Vol] 169 10*3/uL Normal 150-400 [facility] Comment on above: Order Comment: Speci men Type: BLOOD SPECIMENOrdering Facility: [facility] Address: [address] [place] [address] Performed By: #### 5 7021-8, 03384-5 ####[facility] [id number] [place] [id number] [place] RBC (Bld) [#/Vol] 5.24 10*6/uL Normal 4.20-6.00 [facility] Comment on above: Order Comment: Speci men Type: BLOOD SPECIMENOrdering Facility: [facility] Address: [address] [place] [address] Performed By: #### 5 7021-8, 07386-2 ####[facility] [facility] [id number] [place] [id number] [place] WBC (Bld) [#/Vol] 6.10 10*3/uL Normal 3.70-11.00 [facility] Comment on above: Order Comment: Speci men Type: BLOOD SPECIMENOrdering Facility: [facility] Address: [address] [place] [address] Performed By: #### 5 7021-8, 92442-0 ####[facility] [id number] [place] [address] [place] BALTAZAROVclarissa 04-25-2024 CNOV Office Visit (PERICO ) LAZARO GARZON ([id number]) 1955 M Date Time Provider Department 04/25/24 [...] and trying to walk down the stairs. Marana like he was spinning around this morning. [...] speech normal (more content not included)... Normal [facility] Comprehensive metabolic 2000 panelon 04-25-2024 Albumin [Mass/Vol] 4.4 g/dL Normal 3.9-4.9 [facility] Comment on above: Order Comment: Speci men Type: BLOOD SPECIMENOrdering Facility: [facility] Address: [address] [place] [address] Performed By: #### 2 4323-8 ####[facility] [facility] [id number] [facility] [place] [address] [place] ALP [Catalytic activity/Vol] 72 U/L Normal 38-113 [facility] Comment on above: Order Comment: Speci men Type: BLOOD SPECIMENOrdering Facility: [facility] Address: [address] [place] [address] Performed By: #### 2 4323-8 ####[facility] [id number] [place] [address] [place] ALT [Catalytic activity/Vol] 39 U/L Normal 10-54 [facility] Comment on above: Order Comment: Speci men Type: BLOOD SPECIMENOrdering Facility: [facility] Address: [address] [place] [address] Performed By: #### 2 4323-8 ####[facility] [id number] [facility] [place] [place] [address] [place] Anion gap [Moles/Vol] 11 mmol/L Normal 8-15 [facility] Comment on above: Order Comment: Speci men Type: BLOOD SPECIMENOrdering Facility: [facility] Address: [address] [place] [address] Performed By: #### 2 4323-8 ####[facility] [id number] [place] [address] [place] AST [Catalytic activity/Vol] 24 U/L Normal 14-40 [facility] Comment on above: Order Comment: Speci men Type: BLOOD SPECIMENOrdering Facility: [facility] Address: [address] [place] [address] Performed By: #### 2 4323-8 ####[facility] [id number] [place] [address] [place] Bilirubin [Mass/Vol] 0.7 mg/dL Normal 0.2-1.3 [facility] Comment on above: Order Comment: Speci men Type: BLOOD SPECIMENOrdering Facility: [facility] Address: [address] [place] [address] Performed By: #### 2 4323-8 ####[facility] [id number] [place] [address] [place] Calcium [Mass/Vol] 9.2 mg/dL Normal 8.5-10.2 [facility] Comment on above: Order Comment: Speci men Type: BLOOD SPECIMENOrdering Facility: [facility] Address: [address] [place] [address] Performed By: #### 2 4323-8 ####[facility] [id number] [place] [address] [place] Chloride [Moles/Vol] 101 mmol/L Normal 98-107 [facility] Comment on above: Order Comment: Speci men Type: BLOOD SPECIMENOrdering Facility: [facility] Address: [address] [place] [address] Performed By: #### 2 4323-8 ####[facility] [id number] [place] [address] [place] CO2 [Moles/Vol] 27 mmol/L Normal 22-30 [facility] Comment on above: Order Comment: Speci men Type: BLOOD SPECIMENOrdering Facility: [facility] Address: [address] [place] [address] Performed By: #### 2 4323-8 ####[facility] [id number] [place] [address] [place] Creatinine [Mass/Vol] 0.97 mg/dL Normal 0.73-1.22 [facility] Comment on above: Order Comment: Dunia peters Type: BLOOD SPECIMENOrdering Facility: [facility] Address: [address] [place] [address] Performed By: #### 2 4323-8 ####[facility] [facility] [id number] [place] [address] [place] Creatinine and Glomerular filtration rate.predicted panel (S/P/Bld) 86 mL/min/1.73m??? Normal >=60 [facility] Comment on above: Order Comment: Dunia peters Type: BLOOD SPECIMENOrdering Facility: [facility] Address: [address] [place] [address] Result Comment: Jayshree mated Glomerular Filtration Rate [...] actual GFR. Performed By: #### 2 4323-8 ####[facility] [id number] [place] [address] [place] Glucose [Mass/Vol] 173 mg/dL High 74-99 [facility] Comment on above: Order Comment: Dunia peters Type: BLOOD SPECIMENOrdering Facility: [facility] Address: [address] [place] [address] Result Comment: The [place] Diabetes Association (ADA) provides guidance for cutoff [...] Standards of Medical Care in Diabetes 2016, [place] [employer]. Diabetes Care. 2016.39(Suppl 1). Performed By: #### 2 4323-8 ####[facility] [id number] [address] [address] [place] Potassium [Moles/Vol] 4.1 mmol/L Normal 3.7-5.1 [facility] Comment on above: Order Comment: Speci men Type: BLOOD SPECIMENOrdering Facility: [facility] Address: [address] [place] [address] Performed By: #### 2 4323-8 ####[facility] [id number] [place] [address] [place] Protein [Mass/Vol] 7.3 g/dL Normal 6.3-8.0 [facility] Comment on above: Order Comment: Speci men Type: BLOOD SPECIMENOrdering Facility: [facility] Address: [address] [place] [address] Performed By: #### 2 4323-8 ####[facility] [id number] [place] [address] [place] Sodium [Moles/Vol] 139 mmol/L Normal 136-144 [facility] Comment on above: Order Comment: Speci men Type: BLOOD SPECIMENOrdering Facility: [facility] Address: [address] [place] [address] Performed By: #### 2 4323-8 ####[facility] [id number] [place] [id number] [place] Urea nitrogen [Mass/Vol] 15 mg/dL Normal 9-24 [facility] Comment on above: Order Comment: Speci men Type: BLOOD SPECIMENOrdering Facility: [facility] Address: [address] [place], [place] [address] Performed By: #### 2 4323-8 ####[facility] [id number] [address] [place] HbA1c (Bld)on 04-25-2024 Average glucose Estimated from glycated hemoglobin (Bld) [Mass/Vol] 105 mg/dL Normal [facility] Comment on above: Order Comment: Dunia peters Type: BLOOD SPECIMENOrdering Facility: [facility] Address: [address] [place] [address] Result Comment: eAG: (Estimated average glucose) is a calculated value from HgbA1c and is enrollment representative of the average blood glucose level in the last 2-3 month period. Performed By: #### 5 7021-8, 93355-0 ####[facility] [id number] [place] [address] [place] HbA1c (Bld) [Mass fraction] 5.3 % Normal 4.3-5.6 [facility] Comment on above: Order Comment: Paragi men Type: BLOOD SPECIMENOrdering Facility: [facility] Address: [address] [place] [address] Result Comment: [place] Diabetes Association guidelines indicate that patients with HgbA1c in the range 5.7-6.4% are at increased risk for development of diabetes, and intervention by lifestyle modification may be beneficial. HgbA1c greater or equal to 6.5% is considered diagnostic of diabetes. Performed By: #### 5 7021-8, 81453-8 ####[facility] [id number] [place] [address] [place] Urinalysis complete panel (U )on 04-25-2024 Bacteria LM.HPF (Urine sed) [#/Area] Negative Normal Negative [facility] Comment on above: Order Comment: Speci men Type: URINE SPECIMENOrdering Facility: [facility] Address: [address] [place] [address] Performed By: #### 2 4356-8 ####[facility] [id number] [place] [address] [place] Bilirubin Ql (U) Negative Normal Negative [facility] Comment on above: Order Comment: Speci men Type: URINE SPECIMENOrdering Facility: [facility] Address: [address] [place] [address] Performed By: #### 2 4356-8 ####[facility] [id number] [place] [address] [place] Clarity (Unsp spec) Clear Normal Clear [facility] Comment on above: Order Comment: Speci men Type: URINE SPECIMENOrdering Facility: [facility] Address: [address] [place] [address] Performed By: #### 2 4356-8 ####[facility] [id number] [place] [address] [place] Color (U) Yellow Normal Yellow [facility] Comment on above: Order Comment: Speci men Type: URINE SPECIMENOrdering Facility: [facility] Address: [address] [place] [address] Performed By: #### 2 4356-8 ####[facility] [id number] [place] [address] [place] Epithelial cells LM.HPF (Urine sed) [#/Area] None Seen Normal [facility] Comment on above: Order Comment: Speci men Type: URINE SPECIMENOrdering Facility: [facility] Address: [address] [place] [address] Performed By: #### 2 4356-8 ####[facility] [id number] [place] [address] [place] Glucose Test strip (U) [Mass/Vol] Trace Abnormal Negative [facility] Comment on above: Order Comment: Speci men Type: URINE SPECIMENOrdering Facility: [facility] Address: [address] [place] [address] Performed By: #### 2 4356-8 ####[facility] [id number] [place] [address] [place] Hemoglobin Ql (U) Negative Normal Negative [facility] Comment on above: Order Comment: Speci men Type: URINE SPECIMENOrdering Facility: [facility] Address: [address] [place] [address] Performed By: #### 2 4356-8 ####[facility] [id number] [place] [address] [place] Hyaline casts (Urine sed) [#/Area] 0 /[LPF] Normal 0 /LPF [facility] Comment on above: Order Comment: Speci men Type: URINE SPECIMENOrdering Facility: [facility] Address: [address] [place] [address] Performed By: #### 2 4356-8 ####[facility] [id number] [place] [address] [place] Ketones Ql (U) Negative Normal Negative [facility] Comment on above: Order Comment: Speci men Type: URINE SPECIMENOrdering Facility: [facility] Address: [address] [place] [address] Performed By: #### 2 4356-8 ####[facility] [id number] [place] [address] [place] Leukocyte esterase Test strip Ql (U) Negative Normal Negative [facility] Comment on above: Order Comment: Speci men Type: URINE SPECIMENOrdering Facility: [facility] Address: [address] [place] [address] Performed By: #### 2 4356-8 ####[facility] [id number] [place] [address] [place] Nitrite Ql (U) Negative Normal Negative [facility] Comment on above: Order Comment: Speci men Type: URINE SPECIMENOrdering Facility: [facility] Address: [address] [place] [address] Performed By: #### 2 4356-8 ####[facility] [id number] [place] [address] [place] pH (U) 7.5 [pH] Normal <8.5 [facility] Comment on above: Order Comment: Speci men Type: URINE SPECIMENOrdering Facility: [facility] Address: [address] [place] [address] Performed By: #### 2 4356-8 ####[facility] [facility] [id number] [place] [address] [place] Protein (U) [Mass/Vol] Negative Normal Negative [facility] Comment on above: Order Comment: Speci men Type: URINE SPECIMENOrdering Facility: [facility] Address: [address] [place] [address] Performed By: #### 2 4356-8 ####[facility] [id number] [place] [address] [place] RBC LM.HPF (Urine sed) [#/Area] 0-2 /HPF Normal 0-2 /HPF [facility] Comment on above: Order Comment: Speci men Type: URINE SPECIMENOrdering Facility: [facility] Address: [address] [place] [address] Performed By: #### 2 4356-8 ####[facility] [id number] [place] [address] [place] Specific gravity (U) [Rel density] 1.021 Normal 1.005-1.03 0 [facility] Comment on above: Order Comment: Speci men Type: URINE SPECIMENOrdering Facility: [facility] Address: [address] [place] [address] Performed By: #### 2 4356-8 ####[facility] [id number] [place] [address] [place] Urobilinogen Ql (U) 0.2 EU/dL Normal 0.2-1.0 EU/dL [facility] Comment on above: Order Comment: Speci men Type: URINE SPECIMENOrdering Facility: [facility] Address: [address] [place] [address] Performed By: #### 2 4356-8 ####[facility] [id number] [place] [address] [place] WBC LM.HPF (Urine sed) [#/Area] 0-5 /HPF Normal 0-5 /HPF [facility] Comment on above: Order Comment: Speci men Type: URINE SPECIMENOrdering Facility: [facility] Address: [address] [place] [address] Performed By: #### 2 4356-8 ####[facility] [id number] [place] [address] [place] XR CHEST 2V [...] thoracic spine. IMPRESSION: No acute radiographic abnormality. Batting Machine Operator Insulation: PSCB Transcribe Date/Time: Apr 25 2024 2:18P Dictated by : ASHLEY MONTANO MD This examination was interpreted and the report reviewed and electronically signed by: ASHLEY MONTANO MD on Apr 25 2024 2:19PM EST [id number] Normal [facility] XR Chest PA and Lateralon IMPRESSION: No acute radiographic abnormality. Batting Machine Operator Insulation: OSMANI Transcribe Date/Time: Apr 25 2024 2:18P Dictated by : ASHLEY MONTANO MD This examination was interpreted and the report reviewed and electronically signed by: ASHLEY MONTANO MD on Apr 25 2024 2:19PM [facility] DIVISION OF RADIOLOGY * * *Final [...] the thoracic spine. DIVISION OF RADIOLOGY Provider, [facility] - 04/25/2024 * * *Final Report* [...] spine. IMPRESSION IMPRESSION: No acute radiographic abnormality. Batting Machine Operator Insulation: OSMANI Transcribe Date/Time: Apr 25 2024 2:18P Dictated by : ASHLEY MONTANO MD This examination was interpreted and the report reviewed and electronically signed by: ASHLEY MONTANO MD on Apr 25 2024 2:19PM EST [facility] Radiology Study observation (narrative) [facility] XR Chest PA and LateralOrder ed By: Ccf Provider on 04-25-2024 [facility] CNOVon 04-10-2024 CNOV Office Visit (FAMPWS ) LAZARO GARZON ([id number]) 1955 M Date Time Provider Department 04/10/24 [...] Right 1988 LAPS SURG CHOLECYSTECTOMY W/CHOLANGIOGRAPHY 2004 [facility] - Dr. 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 EPIGASTRIC HERNIA,REDUC 07/19/2023 umbilical TONSILLECTOMY PRIMARY/SECONDARY Tonsillectomy Family History FAMILY HISTORY Problem Relation Age of Onset Hypertension Mother Heart Mother Stroke Mother Allergies Mother Breast Cancer Mother Heart Father of [place] Allergies Father Asthma Daughter Allergies Sister Allergies [...] Smokeless tob (more content not included)... [facility] LAZARO GARZON ([id number]) 1955 M Date Time Provider Department 03/13/24 [...] Lymph 1.00 - 4.00 k/uL 0.82 (L) [place]% % 7.5 Abs [place] <0.87 k/uL 0.31 Eosin% % 1.4 Abs [...] colonic polyp (more content not included)... Normal [facility] CBC W Auto Differential pane l (Bld)on 03-08-2024 Basophils (Bld) [#/Vol] [facility] Basophils/100 WBC (Bld) 0.2 % [facility] Differential cell count method Nom (Bld) Auto [facility] Eosinophils (Bld) [#/Vol] 0.06 10*3/uL [facility] Eosinophils/100 WBC (Bld) 1.4 % [facility] Erythrocyte distribution width (RBC) [Ratio] 13.4 % 11.5 - 15.0 % [facility] Hematocrit (Bld) [Volume fraction] 43.8 % 39.0 - 51.0 % [facility] Hemoglobin (Bld) [Mass/Vol] 14.7 g/dL 13.0 - 17.0 g/dL [facility] Immature granulocytes (Bld) [#/Vol] [facility] Immature granulocytes/100 WBC (Bld) 0.2 % [facility] Interpretation and review of laboratory results Abnormal [facility] Lymphocytes (Bld) [#/Vol] 0.82 10*3/uL Low [facility] Lymphocytes/100 WBC (Bld) 19.8 % [facility] MCH (RBC) [Entitic mass] 29.3 pg 26.0 - 34.0 pg [facility] MCHC (RBC) [Mass/Vol] 33.6 g/dL 30.5 - 36.0 g/dL [facility] MCV (RBC) [Entitic vol] 87.4 fL 80.0 - 100.0 fL [facility] Monocytes (Bld) [#/Vol] 0.31 10*3/uL [facility] Monocytes/100 WBC (Bld) 7.5 % [facility] Neutrophils (Bld) [#/Vol] 2.94 10*3/uL [facility] Neutrophils/100 WBC (Bld) 70.9 % [facility] Nucleated RBC (Bld) [#/Vol] NINF [facility] Nucleated RBC/100 WBC (Bld) [Ratio] 0.0 % /100 WBC [facility] Platelet mean volume (Bld) [Entitic vol] 11.7 fL 9.0 - 12.7 fL [facility] Platelets (Bld) [#/Vol] 154 10*3/uL [facility] RBC (Bld) [#/Vol] 5.01 10*6/uL 4.20 - 6.00 m/uL [facility] WBC (Bld) [#/Vol] 4.15 10*3/uL [facility] Basophils (Bld) [#/Vol] 10*3/uL Normal <0.11 [facility] Comment on above: Order Comment: Speci men Type: BLOOD SPECIMENOrdering Facility: [facility] Address: [address] [place] [address] Performed By: #### 5 7021-8 ####[facility] [id number] [place] [address] [place] Basophils/100 WBC (Bld) 0.2 % Normal [facility] Comment on above: Order Comment: Speci men Type: BLOOD SPECIMENOrdering Facility: [facility] Address: [address] [place] [address] Performed By: #### 5 7021-8 ####[facility] [id number] [place] [address] [place] Differential cell count method Nom (Bld) Auto Normal [facility] Comment on above: Order Comment: Speci men Type: BLOOD SPECIMENOrdering Facility: [facility] Address: [address] [place] [address] Performed By: #### 5 7021-8 ####[facility] [id number] [place] [address] [place] Eosinophils (Bld) [#/Vol] 0.06 10*3/uL Normal <0.46 [facility] Comment on above: Order Comment: Speci men Type: BLOOD SPECIMENOrdering Facility: [facility] Address: [address] [place] [address] Performed By: #### 5 7021-8 ####[facility] [id number] [place] [address] [place] Eosinophils/100 WBC (Bld) 1.4 % Normal [facility] Comment on above: Order Comment: Speci men Type: BLOOD SPECIMENOrdering Facility: [facility] Address: [address] [place] [address] Performed By: #### 5 7021-8 ####[facility] [id number] [place] [address] [place] Erythrocyte distribution width (RBC) [Ratio] 13.4 % Normal 11.5-15.0 [facility] Comment on above: Order Comment: Speci men Type: BLOOD SPECIMENOrdering Facility: [facility] Address: [address] [place] [address] Performed By: #### 5 7021-8 ####[facility] [id number] [place] [address] [place] Hematocrit (Bld) [Volume fraction] 43.8 % Normal 39.0-51.0 [facility] Comment on above: Order Comment: Speci men Type: BLOOD SPECIMENOrdering Facility: [facility] Address: [address] [place] [address] Performed By: #### 5 7021-8 ####[facility] [id number] [place] [address] [place] Hemoglobin (Bld) [Mass/Vol] 14.7 g/dL Normal 13.0-17.0 [facility] Comment on above: Order Comment: Speci men Type: BLOOD SPECIMENOrdering Facility: [facility] Address: [address] [place] [address] Performed By: #### 5 7021-8 ####[facility] [id number] [place] [address] [place] Immature granulocytes (Bld) [#/Vol] 10*3/uL Normal <0.10 [facility] Comment on above: Order Comment: Speci men Type: BLOOD SPECIMENOrdering Facility: [facility] Address: [address] [place] [address] Performed By: #### 5 7021-8 ####[facility] [id number] [place] [address] [place] Immature granulocytes/100 WBC (Bld) 0.2 % Normal [facility] Comment on above: Order Comment: Speci men Type: BLOOD SPECIMENOrdering Facility: [facility] Address: [address] [place] [address] Performed By: #### 5 7021-8 ####[facility] [id number] [place] [address] [place] Lymphocytes (Bld) [#/Vol] 0.82 10*3/uL Low 1.00-4.00 [facility] Comment on above: Order Comment: Speci men Type: BLOOD SPECIMENOrdering Facility: [facility] Address: [address] [place] [address] Performed By: #### 5 7021-8 ####[facility] [id number] [place] [address] [place] Lymphocytes/100 WBC (Bld) 19.8 % Normal [facility] Comment on above: Order Comment: Speci men Type: BLOOD SPECIMENOrdering Facility: [facility] Address: [address] [place] [address] Performed By: #### 5 7021-8 ####[facility] [id number] [place] [address] [place] MCH (RBC) [Entitic mass] 29.3 pg Normal 26.0-34.0 [facility] Comment on above: Order Comment: Speci men Type: BLOOD SPECIMENOrdering Facility: [facility] Address: [address] [place] [address] Performed By: #### 5 7021-8 ####[facility] [id number] [place] [address] [place] MCHC (RBC) [Mass/Vol] 33.6 g/dL Normal 30.5-36.0 [facility] Comment on above: Order Comment: Speci men Type: BLOOD SPECIMENOrdering Facility: [facility] Address: [address] [place] [address] Performed By: #### 5 7021-8 ####[facility] [id number] [place] [address] [place] MCV (RBC) [Entitic vol] 87.4 fL Normal 80.0-100.0 [facility] Comment on above: Order Comment: Speci men Type: BLOOD SPECIMENOrdering Facility: [facility] Address: [address] [place] [address] Performed By: #### 5 7021-8 ####[facility] [id number] [place] [address] [place] Monocytes (Bld) [#/Vol] 0.31 10*3/uL Normal <0.87 [facility] Comment on above: Order Comment: Speci men Type: BLOOD SPECIMENOrdering Facility: [facility] Address: [address] [place] [address] Performed By: #### 5 7021-8 ####[facility] [id number] [place] [address] [place] Monocytes/100 WBC (Bld) 7.5 % Normal [facility] Comment on above: Order Comment: Speci men Type: BLOOD SPECIMENOrdering Facility: [facility] Address: [address] [place] [address] Performed By: #### 5 7021-8 ####[facility] [id number] [place] [address] [place] Neutrophils (Bld) [#/Vol] 2.94 10*3/uL Normal 1.45-7.50 [facility] Comment on above: Order Comment: Speci men Type: BLOOD SPECIMENOrdering Facility: [facility] Address: [address] [place] [address] Performed By: #### 5 7021-8 ####[facility] [id number] [place] [address] [place] Neutrophils/100 WBC (Bld) 70.9 % Normal [facility] Comment on above: Order Comment: Speci men Type: BLOOD SPECIMENOrdering Facility: [facility] Address: [address] [place] [address] Performed By: #### 5 7021-8 ####[facility] [id number] [place] [address] [place] Nucleated RBC (Bld) [#/Vol] 10*3/uL Normal <0.01 [facility] Comment on above: Order Comment: Speci men Type: BLOOD SPECIMENOrdering Facility: [facility] Address: [address] [place] [address] Performed By: #### 5 7021-8 ####[facility] [id number] [place] [address] [place] Nucleated RBC/100 WBC (Bld) [Ratio] 0.0 /100 WBC Normal [facility] Comment on above: Order Comment: Speci men Type: BLOOD SPECIMENOrdering Facility: [facility] Address: [address] [place] [address] Performed By: #### 5 7021-8 ####[facility] [id number] [place] [address] [place] Platelet mean volume (Bld) [Entitic vol] 11.7 fL Normal 9.0-12.7 [facility] Comment on above: Order Comment: Speci men Type: BLOOD SPECIMENOrdering Facility: [facility] Address: [address] [place] [address] Performed By: #### 5 7021-8 ####[facility] [id number] [place] [address] [place] Platelets (Bld) [#/Vol] 154 10*3/uL Normal 150-400 [facility] Comment on above: Order Comment: Speci men Type: BLOOD SPECIMENOrdering Facility: [facility] Address: [address] [place] [address] Performed By: #### 5 7021-8 ####[facility] [id number] [place] [address] [place] RBC (Bld) [#/Vol] 5.01 10*6/uL Normal 4.20-6.00 [facility] Comment on above: Order Comment: Speci men Type: BLOOD SPECIMENOrdering Facility: [facility] Address: [address] [place] [address] Performed By: #### 5 7021-8 ####[facility] [id number] [place] [address] [place] WBC (Bld) [#/Vol] 4.15 10*3/uL Normal 3.70-11.00 [facility] Comment on above: Order Comment: Speci men Type: BLOOD SPECIMENOrdering Facility: [facility] Address: [address] [place] [address] Performed By: #### 5 7021-8 ####[facility] [id number] [place] [address] [place] CNOVon 03-08-2024 CNOV Office Visit (FAMPWS ) LAZARO GARZON ([id number]) 1955 M Date Time Provider Department 03/08/24 [...] Right 1988 LAPS SURG CHOLECYSTECTOMY W/CHOLANGIOGRAPHY 2004 [facility] - Dr. Bales OPEN REPAIR OF ROTATOR CUFF ACUTE Rotator cuff repair PERCUTANEOUS CORONARY INTERVENTION 2007 stent to LAD REPAIR EPIGASTRIC HERNIA,REDUC 07/19/2023 umbilical TONSILLECTOMY PRIMARY/SECONDARY Tonsillectomy FAMILY HISTORY Problem Relation Age of Onset Hypertension Mother Heart Mother Stroke Mother Allergies Mother Breast Cancer Mother Heart Father of [place] Allergies Father Asthma Daughter Allergies Sister Allergies Brother Allergies Daughter Social History Tobacco Us (more content not included)... Normal [facility] CNPNon 03-08-2024 CNPN Telephone (FAMPWS) LAZARO GARZON ([id number]) 1955 Date Time Provider Department 03/08/24 JAGJIT CHEEMA [facility] During your visit today, we recorded the [...] Diagnosed: 02 (more content not included)... Normal [facility] CT ABD/PEL W IVCONon 024 CT ABD/PEL W IVCON * * *Final Report* * * DATE OF EXAM: Mar 08 2024 4:00PM [facility] 0530 - CT ABD/PEL W IVCON / [...] from 2019. No new lesions or hepatomegaly Batting Machine Operator Insulation: [facility] Transcribe Date/Time: Mar 08 2024 4:06P Dictated by : KHANH GERARD MD This examination was interpreted and the report reviewed and electronically signed by: KHANH GERARD MD on Mar 08 2024 4:12PM EST [id number] Normal [facility] CT Abdomen and Pelvis W cont [...] from 2019. No new lesions or hepatomegaly Batting Machine Operator Insulation: [facility] Transcribe Date/Time: Mar 08 2024 4:06P Dictated by : KHANH GERARD MD This examination was interpreted and the report reviewed and electronically signed by: KHANH GERARD MD on Mar 08 2024 4:12PM EST [facility] * * *Final Report* * * DATE OF EXAM: Mar 08 2024 4:00PM [facility] 0530 - CT ABD/PEL W IVCON / [...] lower lumbar posterior decompression Lower thorax: [facility] * * *Final Report* * * DATE OF EXAM: Mar 08 2024 4:00PM [facility] 0530 - CT ABD/PEL W IVCON / [...] from 2019. No new lesions or hepatomegaly Batting Machine Operator Insulation: [facility] Transcribe Date/Time: Mar 08 2024 4:06P Dictated by : KHANH GERARD MD This examination was interpreted and the report reviewed and electronically signed by: KHANH GERARD MD on Mar 08 2024 4:12PM EST [facility] Radiology Study observation (narrative) [facility] CT Abdomen and Pelvis W cont rast IVOrdered By: Ccf Provider on 03-08-2024 [facility] Comprehensive metabolic 2000 panelon 03-08-2024 Albumin [Mass/Vol] 4.4 g/dL Normal 3.9-4.9 [facility] Comment on above: Order Comment: Speci men Type: BLOOD SPECIMENOrdering Facility: [facility] Address: [address] [place] [address] Performed By: #### 2 4323-8 ####[facility] [id number] [place] [address] [place] ALP [Catalytic activity/Vol] 78 U/L Normal 38-113 [facility] Comment on above: Order Comment: Speci men Type: BLOOD SPECIMENOrdering Facility: [facility] Address: [address] [place] [address] Performed By: #### 2 4323-8 ####[facility] [id number] [place] [address] [place] ALT [Catalytic activity/Vol] 31 U/L Normal 10-54 [facility] Comment on above: Order Comment: Speci men Type: BLOOD SPECIMENOrdering Facility: [facility] Address: [address] [place] [address] Performed By: #### 2 4323-8 ####[facility] [id number] [place] [id number] [place] Anion gap [Moles/Vol] 9 mmol/L Normal 8-15 [facility] Comment on above: Order Comment: Speci men Type: BLOOD SPECIMENOrdering Facility: [facility] Address: [address] [place] [address] Performed By: #### 2 4323-8 ####[facility] [id number] [place] [address] [place] AST [Catalytic activity/Vol] 23 U/L Normal 14-40 [facility] Comment on above: Order Comment: Speci men Type: BLOOD SPECIMENOrdering Facility: [facility] Address: [address] [place] [address] Performed By: #### 2 4323-8 ####[facility] [id number] [place] [address] [place] Bilirubin [Mass/Vol] 0.8 mg/dL Normal 0.2-1.3 [facility] Comment on above: Order Comment: Speci men Type: BLOOD SPECIMENOrdering Facility: [facility] Address: [address] [place] [address] Performed By: #### 2 4323-8 ####[facility] [id number] [place] [address] [place] Calcium [Mass/Vol] 9.3 mg/dL Normal 8.5-10.2 [facility] Comment on above: Order Comment: Speci men Type: BLOOD SPECIMENOrdering Facility: [facility] Address: [address] [place] [address] Performed By: #### 2 4323-8 ####[facility] [id number] [place] [address] [place] Chloride [Moles/Vol] 105 mmol/L Normal 98-107 [facility] Comment on above: Order Comment: Speci men Type: BLOOD SPECIMENOrdering Facility: [facility] Address: [address] [place] [address] Performed By: #### 2 4323-8 ####[facility] [id number] [place] [address] [place] CO2 [Moles/Vol] 26 mmol/L Normal 22-30 [facility] Comment on above: Order Comment: Speci men Type: BLOOD SPECIMENOrdering Facility: [facility] Address: [address] [place] [address] Performed By: #### 2 4323-8 ####[facility] [id number] [place] [address] [place] Creatinine [Mass/Vol] 0.97 mg/dL Normal 0.73-1.22 [facility] Comment on above: Order Comment: Speci men Type: BLOOD SPECIMENOrdering Facility: [facility] Address: [address] [place] [address] Performed By: #### 2 4323-8 ####[facility] [id number] [place] [address] [place] Creatinine and Glomerular filtration rate.predicted panel (S/P/Bld) 86 mL/min/1.73m??? Normal >=60 [facility] Comment on above: Order Comment: Speci men Type: BLOOD SPECIMENOrdering Facility: [facility] Address: [address] [place] [address] Result Comment: Jayshree mated Glomerular Filtration Rate [...] actual GFR. Performed By: #### 2 4323-8 ####[facility] [id number] [place] [address] [place] Glucose [Mass/Vol] 201 mg/dL High 74-99 [facility] Comment on above: Order Comment: Speci men Type: BLOOD SPECIMENOrdering Facility: [facility] Address: [address] [place] [address] Result Comment: The [place] [employer] (ADA) provides guidance for cutoff [...] Standards of Medical Care in Diabetes 2016, [place] [employer]. Diabetes Care. 2016.39(Suppl 1). Performed By: #### 2 4323-8 ####[facility] [id number] [place] [id number] [place] Potassium [Moles/Vol] 3.5 mmol/L Low 3.7-5.1 [facility] Comment on above: Order Comment: Speci men Type: BLOOD SPECIMENOrdering Facility: [facility] Address: [address] [place] [address] Performed By: #### 2 4323-8 ####[facility] [id number] [address] [address] [place] Protein [Mass/Vol] 7.3 g/dL Normal 6.3-8.0 [facility] Comment on above: Order Comment: Speci men Type: BLOOD SPECIMENOrdering Facility: [facility] Address: [address] [place] [address] Performed By: #### 2 4323-8 ####[facility] [id number] [place] [id number] [place] Sodium [Moles/Vol] 140 mmol/L Normal 136-144 [facility] Comment on above: Order Comment: Speci men Type: BLOOD SPECIMENOrdering Facility: [facility] Address: [address] [place] [address] Performed By: #### 2 4323-8 ####[facility] [id number] [place] [address] [place] Urea nitrogen [Mass/Vol] 14 mg/dL Normal 9-24 [facility] Comment on above: Order Comment: Speci men Type: BLOOD SPECIMENOrdering Facility: [facility] [facility] Address: [address] [place] [address] Performed By: #### 2 [id number] ####[facility] [id number] [place] [address] [place] Thoracic Spine 3 Viewson Thoracic Spine 3 Views [facility] Radiology [address] [place] [address] Thoracic Spine 3 Views MR#: [id number] Acct: [id number] Name: LAZARO GARZON Rep #: [id number] : 1955 M 68 From: Carrillo Quijano MD PCP: Dr. Jagjit Cheema MD Status: DEP AMB Study: Thoracic Spine 3 Views Date of Exam: 01/15/24 Exam# [id number] Ordering Dr: Asuncion Bardales :[id number] INDICATION: PAIN EXAMINATION/TECHNIQUE: X-RAY - XR Spine [...] CC: Asuncion Bardales; Dr. Jagjit Cheema MD Batting Machine Operator Insulation: Signed Normal [facility] CBC W Auto Differential pane l (Bld)on 12-13-2023 Basophils (Bld) [#/Vol] 0.04 10*3/uL [facility] Basophils/100 WBC (Bld) 0.6 % [facility] Differential cell count method Nom (Bld) Auto [facility] Eosinophils (Bld) [#/Vol] 0.08 10*3/uL [facility] Eosinophils/100 WBC (Bld) 1.1 % [facility] Erythrocyte distribution width (RBC) [Ratio] 13.1 % 11.5 - 15.0 % [facility] Hematocrit (Bld) [Volume fraction] 47.9 % 39.0 - 51.0 % [facility] Hemoglobin (Bld) [Mass/Vol] 16.7 g/dL 13.0 - 17.0 g/dL [facility] Immature granulocytes (Bld) [#/Vol] [facility] Immature granulocytes/100 WBC (Bld) 0.3 % [facility] Lymphocytes (Bld) [#/Vol] 1.21 10*3/uL [facility] Lymphocytes/100 WBC (Bld) 16.8 % [facility] MCH (RBC) [Entitic mass] 29.6 pg 26.0 - 34.0 pg [facility] MCHC (RBC) [Mass/Vol] 34.9 g/dL 30.5 - 36.0 g/dL [facility] MCV (RBC) [Entitic vol] 84.9 fL 80.0 - 100.0 fL [facility] Monocytes (Bld) [#/Vol] 0.71 10*3/uL NINF [facility] Monocytes/100 WBC (Bld) 9.8 % [facility] Neutrophils (Bld) [#/Vol] 5.15 10*3/uL [facility] Neutrophils/100 WBC (Bld) 71.4 % [facility] Nucleated RBC (Bld) [#/Vol] NINF [facility] Nucleated RBC/100 WBC (Bld) [Ratio] 0.0 % /100 WBC [facility] Platelet mean volume (Bld) [Entitic vol] 11.2 fL 9.0 - 12.7 fL [facility] Platelets (Bld) [#/Vol] 168 10*3/uL [facility] RBC (Bld) [#/Vol] 5.64 10*6/uL 4.20 - 6.00 m/uL [facility] WBC (Bld) [#/Vol] 7.21 10*3/uL [facility] Comprehensive metabolic 2000 panelOrdered By: Elizabeth Malone on 12-13-2023 Albumin [Mass/Vol] 4.7 g/dL 3.9 - 4.9 g/dL [facility] ALP [Catalytic activity/Vol] 90 U/L 38 - 113 U/L [facility] ALT [Catalytic activity/Vol] 31 U/L 10 - 54 U/L [facility] Anion gap [Moles/Vol] 12 mmol/L 8 - 15 mmol/L [facility] AST [Catalytic activity/Vol] 21 U/L 14 - 40 U/L [facility] Bilirubin [Mass/Vol] 0.8 mg/dL 0.2 - 1 .3 mg/dL [facility] Calcium [Mass/Vol] 9.3 mg/dL 8.5 - 10. 2 mg/dL [facility] Chloride [Moles/Vol] 105 mmol/L 98 - 10 7 mmol/L [facility] CO2 [Moles/Vol] 23 mmol/L 22 - 30 mmol/L [facility] Creatinine [Mass/Vol] 0.88 mg/dL 0.73 - 1.22 mg/dL [facility] GFR/1.73 sq M.predicted among non-blacks MDRD (S/P/Bld) [Vol rate/Area] 95 mL/min/{1.73_m2} - PINF [facility] Comment on above: Estimated Glomerular Filtration Rate [...] [Mass/Vol] 79 mg/dL 74 - 99 mg/dL [facility] Comment on above: The [place] Diab[employer] Association (ADA) provides guidance for [...] Standards of Medical Care in Diabetes 2016, [place] [employer]. Diabetes Care. 2016.39(Suppl 1). Interpretation and review of laboratory results Abnormal [facility] Potassium [Moles/Vol] 3.5 mmol/L Low 3.7 - 5.1 mmol/L [facility] Protein [Mass/Vol] 7.9 g/dL 6.3 - 8.0 g/dL [facility] Sodium [Moles/Vol] 140 mmol/L 136 - 144 mmol/L [facility] Urea nitrogen [Mass/Vol] 18 mg/dL 9 - 24 mg/dL [facility] Basophil percentageOrdered B y: Flores Glover on 10-18-2023 Bilirubin [Mass/Vol] 1.00 mg/dL 0.20-1.00 [facility] Comment on above: For patients on eltr ombopag therapy, use of Dimension [place] TBIL is not recommended. Chloride [Moles/Vol] 110 mmol/L 98-107 [facility] Cholesterol [Mass/Vol] 75 mg/dL <200 [facility] Comment on above: <200 mg/dL Desirable 200-240 mg/dL Borderline >240 mg/dL High Risk Glucose [Mass/Vol] 119 mg/dL 74-106 [facility] Comment on above: Fasting Glucose resu lt from 100 to 125 mg/dL suggests IMPAIRED HOMEOSTASIS per A.D.A. criteria. Hemoglobin (Bld) [Mass/Vol] 15.3 g/dL 13.0-16.5 [facility] Potassium [Moles/Vol] 3.6 mmol/L 3.5-5.1 [facility] Protein [Mass/Vol] 7.2 g/dL 6.4-8.2 [facility] Sodium [Moles/Vol] 141 mmol/L 136-145 [facility] Triglyceride [Mass/Vol] 147 mg/dL <199 [facility] Comment on above: The drugs N-Acetylcy steine and Metamizole may falsely depress this assay.Serum Triglycerides Reference Interval Normal <150 mg/dL Borderline high 150 - 199 mg/dL High 200 - 499 mg/dL Very High > or = 500 mg/dL WBC (Bld) [#/Vol] 4.6 10*3/uL 4.4-11.0 [facility] Determination of erythrocyte mean corpuscular volume (MCV)Ordered By: Flores Glover on 10-18-2023 MCV (RBC) [Entitic vol] 86.7 fL 80-94 [facility] Erythrocyte distribution wid th ratioOrdered By: Flores Glover on 10-18-2023 Erythrocyte distribution width (RBC) [Ratio] 14.0 % 11.6-14.6 [facility] Erythrocyte distribution wid th standard deviationOrdered By: Flores Glover on 10-18-2023 Erythrocyte distribution width (RBC) [Entitic vol] 44.5 fL 35.1-43.9 [facility] Hematocrit Auto (Bld) [Volum e fraction]Ordered By: Flores Glover on 10-18-2023 Hematocrit (Bld) [Volume fraction] 44.4 % 40-54 [facility] Laboratory - Chemistry and C hemistry - challengeOrdered By: Flores Glover on 10-18-2023 Albumin/Globulin [Mass ratio] 1.2 {ratio} 0.9-2.4 [facility] ALP [Catalytic activity/Vol] 78 U/L 45-117 [facility] ALT [Catalytic activity/Vol] 33 U/L 16-61 [facility] Cholesterol in HDL [Mass/Vol] 28 mg/dL >40 [facility] Comment on above: The drugs N-Acetylcy steine and Metamizole may falsely depress this assay. Reference Range HDL <40 mg/dL Low HDL Cholesterol HDL >or= 60 mg/dL High HDL Cholesterol Cholesterol in LDL [Mass/Vol] 18 mg/dL 0-130 [facility] CO2 [Moles/Vol] 26.0 mmol/L 21.0-32.0 [facility] Globulin (S) [Mass/Vol] 3.2 g/dL 2.2-4.2 [facility] Magnesium [Mass/Vol] 1.9 mg/dL 1.6-2.6 [facility] Urea nitrogen/Creatinine [Mass ratio] 15.8 mg/mg 10-20 [facility] Laboratory - Hematology and Cell countsOrdered By: Flores Glover on 10-18-2023 MCH (RBC) [Entitic mass] 29.9 pg 27.0-32.0 [facility] MCHC (RBC) [Mass/Vol] 34.5 g/dL 32-36 [facility] Platelet mean volume (Bld) [Entitic vol] 11.6 fL 6.2-12.0 [facility] Platelets (Bld) [#/Vol] 130 10*3/uL 150-450 [facility] No Panel InformationOrdered By: Flores Glover on 10-18-2023 Estimated GFR (MDRD) Amer 102 mL/min >60 [facility] Comment on above: GFR Calc Estimated GFR (MDRD) Non-Af Amer 84 mL/min >60 [facility] Comment on above: Non- GFR Calc VLDL Cholesterol 29 mg/dL 5-40 [facility] RBC Auto (Bld) [#/Vol]Ordere d By: Flores Glover on 10-18-2023 RBC (Bld) [#/Vol] 5.12 10*6/uL 4.6-6.2 [facility] Serum or plasma calcium peterson urement (mass/volume)Ordered By: Flores Glover on 10-18-2023 Calcium [Mass/Vol] 8.7 mg/dL 8.5-10.1 [facility] Serum or plasma creatinine m easurement (mass/volume)Ordered By: Flores Glover on 10-18-2023 Creatinine [Mass/Vol] 0.95 mg/dL 0.70-1.30 [facility] Comment on above: The validity of the calculated GFR & GFRAA in patients over 70 years has not been determined. Clinical correlation is essential. Serum or plasma urea nitroge n measurement (mass/volume)Ordered By: Floresduncan Glover on 10-18-2023 Urea nitrogen [Mass/Vol] 15 mg/dL 7-18 [facility] Thin prep Papanicolaou smear with manual screeningOrdered By: Flores Adalberto on 10-18-2023 Thin prep Papanicolaou smear with manual screening 4.0 g/dL 3.2-5.0 [facility] Thin prep Papanicolaou smear with manual screening 19 U/L 15-37 [facility] Thin prep Papanicolaou smear with manual screening 5 5-15 [facility] ANES POSTPROC EVALon 024 ANES POSTPROC EVAL HNO ID: [id number] Author: VEE LOVING MD Service: Anesthesiology Author Type: Anesthesiologist Type: Anesthesia Postprocedure Evaluation Filed: 07/19/2023 10:38 Note Text: POST ANESTHESIA EVALUATION NOTE : 1955 Procedure Summary Date: 07/19/23 Room / Location: [place] [address] / [place] OR Anesthesia Start: 900 Anesthesia Stop: 100 [...] July 19, 2023 TIME: 10:38 AM CSN: [id number] [facility] ANES PRE-OPon 07-19-2023 ANES PRE-OP HNO ID: [id number] Author: VEE LOVING MD Service: Anesthesiology Author Type: Anesthesiologist Type: Anesthesia Preprocedure Evaluation Filed: 07/19/2023 08:12 Note Text: ANESTHESIOLOGY DAY OF SURGERY NOTE : 1955 Procedure Information Date/Time: 07/19/23855 Procedure: HERNIORRHAPHY UMBILICAL REDUCIBLE 3cm-10cm (Abdomen) Location: [place] OR / [place] OR Surgeons: Robby Bales MD Estimated body [...] and consent discussed: yes. Patient / Responsible Alliance Party agrees to proceed: yes Patient / [...] July 19, 2023 TIME: 8:11 AM CSN: [id number] Normal [facility] HISTORY PHYSICALon HISTORY PHYSICAL HNO ID: [id number] Author: ROBBY BALES MD Service: General Surgery [...] Right 1988 LAPS SURG CHOLECYSTECTOMY W/CHOLANGIOGRAPHY 2004 [facility] - Dr. Bales OPEN REPAIR OF ROTATOR [...] Mother Breast Cancer Mother Heart Father of [place] Allergies Father Asthma Daughter Allergies Sister Allergies Brother Allergies Daughter REVIEW OF SYMPTOMS: The review of systems data was entered by the nurse and reviewed by me Nursing Notes: (more content not included)... [facility] OPERATIVE NOon 07-19-2023 OPERATIVE NO HNO ID: [id number] Author: ROBBY BALES MD Service: General Surgery Author Type: Physician Type: Operative Report Filed: 07/19/2023 10:07 Note Text: OPERATIVE/PROCEDURE REPORT LOG ID: [id number] SURGERY/PROCEDURE DATE: 07/19/2023 INCISION/PROCEDURE START TIME: 9:18 AM INCISION CLOSE/PROCEDURE END TIME: 9:55 AM SURGEON(S)/PROCEDURALIST(S) AND SALES AND MARKETING ADMINISTRATOR(S): Surgeon(s) and Role: * Robby Bales MD - Primary Physician Migrant Leader: Anna Mccoy PA-C SURGERY/PROCEDURE(S): Umbilical hernia repair [...] procedure well. Anna Mccoy PA-C was my blood donor unit assistant. She assisted with retraction, visualization and performed skin closure. No additional surgeons or qualified residents were available. PRE-OP/PRE-PROCEDURE DIAGNOSIS: Umbilical hernia POST-OP/POST-PROCEDURE DIAGNOSIS: Same as Preop ESTIMATED BLOOD LOSS: < 25 mls SPECIMENS: None IMPLANTABLE DEVICES: Implant Name Type Inv. Item Serial No. Broke Beater Lot No. LRB No. Used Action MESH PARIETEX 6.6CM SMALL COLLAGEN SURGICAL PATCH SELF CENTER COMPOSITE - [id number] Mesh MESH PARIETEX 6.6CM SMALL COLLAGEN SURGICAL PATCH SELF CENTER COMPOSITE [employer] [id number] N/A 1 Implanted DRAINS: None COMPLICATIONS: None CLOSURE TECHNIQUE: Primary PARTICIPATION IN SURGERY/PROCEDURE: I/primary surgeon/proceduralist performed the procedure with assistance. SIGNATURE: Robby Bales III, MD PATIENT NAME: Lazaro Garzon DATE: July 19, 2023 TIME: 9:48 AM [facility] Absolute lymphocyte countOrd ered By: Flores Adalberto on 07-13-2023 Lymphocytes Auto (Unsp spec) [#/Vol] 0.84 10*3/uL 0.83-4.51 [facility] Automated lymphocyte count a s percentage of total leukocytesOrdered By: [facility] 07-[facility]-2023 Lymphocytes/100 WBC Auto (Unsp spec) 23.8 % 19-41 [facility] Basophil percentageOrdered B y: [facility] on 07-13-2023 Basophils/100 WBC (Bld) 0.6 % 0-1 [facility] Eosinophils/100 WBC (Bld) 1.7 % 0-5 [facility] Hemoglobin (Bld) [Mass/Vol] 15.5 g/dL 13.0-16.5 [facility] Monocytes/100 WBC (Bld) 11.0 % 0-10 [facility] Neutrophils (Bld) [#/Vol] 2.2 10*3/uL 2.0-7.7 [facility] Neutrophils/100 WBC (Bld) 62.9 % 47-70 [facility] WBC (Bld) [#/Vol] 3.5 10*3/uL 4.4-11.0 [facility] Bilirubin [Mass/Vol] 1.10 mg/dL 0.20-1.00 [facility] Comment on above: For patients on eltr ombopag therapy, use of Dimension [place] TBIL is not recommended. Chloride [Moles/Vol] 108 mmol/L 98-107 [facility] Cholesterol [Mass/Vol] 77 mg/dL <200 [facility] Comment on above: <200 mg/dL Desirable 200-240 mg/dL Borderline >240 mg/dL High Risk Glucose [Mass/Vol] 116 mg/dL 74-106 [facility] Comment on above: Fasting Glucose resu lt from 100 to 125 mg/dL suggests IMPAIRED HOMEOSTASIS per A.D.A. criteria. Potassium [Moles/Vol] 4.0 mmol/L 3.5-5.1 [facility] Protein [Mass/Vol] 7.9 g/dL 6.4-8.2 [facility] Sodium [Moles/Vol] 137 mmol/L 136-145 [facility] Triglyceride [Mass/Vol] 90 mg/dL <199 [facility] Comment on above: The drugs N-Acetylcy steine and Metamizole may falsely depress this assay.Serum Triglycerides Reference Interval Normal <150 mg/dL Borderline high 150 - 199 mg/dL High 200 - 499 mg/dL Very High > or = 500 mg/dL Determination of erythrocyte mean corpuscular volume (MCV)Ordered By: Flores Glover on 07-13-2023 MCV (RBC) [Entitic vol] 86.6 fL 80-94 [facility] Direct bilirubinOrdered By: Flores Glover on 07-13-2023 Bilirubin.direct [Mass/Vol] 0.33 mg/dL 0.00-0.30 [facility] Erythrocyte distribution wid th ratioOrdered By: Flores Glover on 07-13-2023 Erythrocyte distribution width (RBC) [Ratio] 13.0 % 11.6-14.6 [facility] Erythrocyte distribution wid th standard deviationOrdered By: Flores Glover on 07-13-2023 Erythrocyte distribution width (RBC) [Entitic vol] 40.1 fL 35.1-43.9 [facility] Hematocrit Auto (Bld) [Volum e fraction]Ordered By: Flores Glover on 07-13-2023 Hematocrit (Bld) [Volume fraction] 46.0 % 40-54 [facility] High density lipoprotein (HD L) measurementOrdered By: Flores Glover on 07-13-2023 Cholesterol in HDL (Body fld) [Mass/Vol] 30 mg/dL >40 [facility] Comment on above: The drugs N-Acetylcy steine and Metamizole may falsely depress this assay. Reference Range HDL <40 mg/dL Low HDL Cholesterol HDL >or= 60 mg/dL High HDL Cholesterol Immature granulocytes/100 WB C Auto (Bld)Ordered By: Flores Glover on 07-13-2023 Immature granulocytes/100 WBC (Bld) 0.000 % 0.0-0.9 [facility] Comment on above: IG% - Immature Granu locytes (promyelocytes, myelocytes and metamyelocytes) > 1% indicates that a LEFT SHIFT is Present. Laboratory - Chemistry and C hemistry - challengeOrdered By: Flores Glover on 07-13-2023 Albumin/Globulin [Mass ratio] 1.2 {ratio} 0.9-2.4 [facility] ALP [Catalytic activity/Vol] 76 U/L 45-117 [facility] ALT [Catalytic activity/Vol] 59 U/L 16-61 [facility] CO2 [Moles/Vol] 28.0 mmol/L 21.0-32.0 [facility] Globulin (S) [Mass/Vol] 3.6 g/dL 2.2-4.2 [facility] Urea nitrogen/Creatinine [Mass ratio] 15.3 mg/mg 10-20 [facility] Laboratory - Hematology and Cell countsOrdered By: Flores Glover on 07-13-2023 MCH (RBC) [Entitic mass] 29.2 pg 27.0-32.0 [facility] MCHC (RBC) [Mass/Vol] 33.7 g/dL 32-36 [facility] Nucleated RBC/100 WBC (Bld) [Ratio] 0 % 0-5 [facility] Platelets (Bld) [#/Vol] 164 10*3/uL 150-450 [facility] Low density lipoprotein (LDL ) cholesterol measurementOrdered By: Flores Glover on 07-13-2023 Cholesterol in LDL (Body fld) [Moles/Vol] 29 mg/dL 0-130 [facility] No Panel InformationOrdered By: Flores Glover on 07-13-2023 Estimated GFR (MDRD) Amer 80 mL/min >60 [facility] Comment on above: GFR Calc Estimated GFR (MDRD) Non-Af Amer 66 mL/min >60 [facility] Comment on above: Non- GFR Calc Platelet mean volume Stephen-Ec ker (Bld) [Entitic vol]Ordered By: Flores Glover on 07-13-2023 Platelet mean volume (Bld) [Entitic vol] 10.8 fL 6.2-12.0 [facility] RBC Auto (Bld) [#/Vol]Ordere d By: Flores Glover on 07-13-2023 RBC (Bld) [#/Vol] 5.31 10*6/uL 4.6-6.2 [facility] Serum or plasma calcium peterson urement (mass/volume)Ordered By: Flores Glover on 07-13-2023 Calcium [Mass/Vol] 9.5 mg/dL 8.5-10.1 [facility] Serum or plasma creatinine m easurement (mass/volume)Ordered By: Flores Glover on 07-13-2023 Creatinine [Mass/Vol] 1.18 mg/dL 0.70-1.30 [facility] Comment on above: The validity of the calculated GFR & GFRAA in patients over 70 years has not been determined. Clinical correlation is essential. Serum or plasma urea nitroge n measurement (mass/volume)Ordered By: Flores Glover on 07-13-2023 Urea nitrogen [Mass/Vol] 18 mg/dL 7-18 [facility] Thin prep Papanicolaou smear with manual screeningOrdered By: Flores Glover on 07-13-2023 Thin prep Papanicolaou smear with manual screening 4.3 g/dL 3.2-5.0 [facility] Thin prep Papanicolaou smear with manual screening 32 U/L 15-37 [facility] Thin prep Papanicolaou smear with manual screening 1 5-15 [facility] Very low density lipoprotein (VLDL) cholesterol measurementOrdered By: Flores Glover on 07-13-2023 Cholesterol in VLDL Calc [Moles/Vol] 18 mg/dL 5-40 [facility] Basophil percentageOrdered B y: Gamal Ramos on 04-25-2023 Testosterone [Mass/Vol] 366.38 ng/dL [facility] Comment on above: CENTRAL 90% REFERENC E RANGES MALE AGE <50 197.44 - 669.58 ng/dL MALE AGE > or = 50 187.72 - 684.19 ng/dL FEMALE AGE <50 8.38 - 35.01 ng/dL FEMALE AGE > or = 50 <7.00 - 35.92 ng/dL Effective as of 01/12/21 No Panel InformationOrdered By: Gamal Ramos on 04-25-2023 Prostate Specific Antigen Screen 3.94 ng/mL 0.00-4.00 [facility] Comment on above: This test was perfor med using the TPSA assay method for the[employer] chemistry system. Values obtained with differentassay methods cannot be used interchangably.When changing PSA assays in the course of monitoring apatient, additional sequential testing should be carriedout to confirm baseline values. XR Foot - left AP and Latera l and obliqueon 04-03-2023 IMPRESSION: No radiographic evidence of acute osseous injury Batting Machine Operator Insulation: OSMANI Transcribe Date/Time: Apr 03 2023 11:18A Dictated by : JERE DUNHAM MD This examination was interpreted and the report reviewed and electronically signed by: JERE DUNHAM MD on Apr 03 2023 11:19AM [facility] DIVISION OF RADIOLOGY * * *Final [...] the interphalangeal joints. DIVISION OF RADIOLOGY Provider, [facility] - 04/03/2023 * * *Final Report* [...] No radiographic evidence of acute osseous injury Batting Machine Operator Insulation: PSC Transcribe Date/Time: Apr 03 2023 11:18A Dictated by : JERE DUNHAM MD This examination was interpreted and the report reviewed and electronically signed by: JERE DUNHAM MD on Apr 03 2023 11:19AM EST [facility] Radiology Study observation (narrative) [facility] XR Foot - left AP and Latera l and obliqueOrdered By: [facility] Provider on 04-03-2023 [facility] CBC W Auto Differential pane l (Bld)on 12-20-2022 Basophils (Bld) [#/Vol] 0.03 10*3/uL <0.11 k/uL [facility] Basophils/100 WBC (Bld) 0.6 % [facility] Differential cell count method Nom (Bld) Auto [facility] Eosinophils (Bld) [#/Vol] 0.10 10*3/uL <0.46 k/uL [facility] Eosinophils/100 WBC (Bld) 1.9 % [facility] Erythrocyte distribution width (RBC) [Ratio] 13.0 % 11.5 - 15.0 % [facility] Hematocrit (Bld) [Volume fraction] 40.3 % 39.0 - 51.0 % [facility] Hemoglobin (Bld) [Mass/Vol] 13.4 g/dL 13.0 - 17.0 g/dL [facility] Immature granulocytes (Bld) [#/Vol] <0.10 k/uL [facility] Immature granulocytes/100 WBC (Bld) 0.4 % [facility] Lymphocytes (Bld) [#/Vol] 1.01 10*3/uL 1.00 - 4.00 k/uL [facility] Lymphocytes/100 WBC (Bld) 19.6 % [facility] MCH (RBC) [Entitic mass] 29.6 pg 26.0 - 34.0 pg [facility] MCHC (RBC) [Mass/Vol] 33.3 g/dL 30.5 - 36.0 g/dL [facility] MCV (RBC) [Entitic vol] 89.2 fL 80.0 - 100.0 fL [facility] Monocytes (Bld) [#/Vol] 0.45 10*3/uL <0.87 k/uL [facility] Monocytes/100 WBC (Bld) 8.8 % [facility] Neutrophils (Bld) [#/Vol] 3.53 10*3/uL 1.45 - 7.50 k/uL [facility] Neutrophils/100 WBC (Bld) 68.7 % [facility] Nucleated RBC (Bld) [#/Vol] <0.01 k/uL [facility] Nucleated RBC/100 WBC (Bld) [Ratio] 0.0 /100 WBC [facility] Platelet mean volume (Bld) [Entitic vol] 12.2 fL 9.0 - 12.7 fL [facility] Platelets (Bld) [#/Vol] 156 10*3/uL 150 - 400 k/uL [facility] RBC (Bld) [#/Vol] 4.52 10*6/uL 4.20 - 6.00 m/uL [facility] WBC (Bld) [#/Vol] 5.14 10*3/uL 3.70 - 11.00 k/uL [facility] Absolute lymphocyte countOrd ered By: Lucy Partida on 12-16-2022 Lymphocytes Auto (Unsp spec) [#/Vol] 0.25 10*3/uL 0.83-4.51 [facility] Acetaminophen level (mass/vo lume)Ordered By: Lucy Helga on 12-16-2022 Acetaminophen (Unsp spec) [Mass/Vol] 2.3 ug/mL 10.0-30.0 [facility] Basophil percentageOrdered B y: Lucy Partida on 12-16-2022 Basophils/100 WBC (Bld) 0.2 % 0-1 [facility] Bilirubin [Mass/Vol] 1.20 mg/dL 0.20-1.00 [facility] Comment on above: For patients on eltr ombopag therapy, use of Dimension [place] TBIL is not recommended. Chloride [Moles/Vol] 108 mmol/L 98-107 [facility] Eosinophils/100 WBC (Bld) 0.2 % 0-5 [facility] Glucose [Mass/Vol] 130 mg/dL 74-106 [facility] Comment on above: Fasting Glucose resu lt greater than or equal to 126 mg/dL suggests DIABETES MELLITUS per A.D.A. criteria. Neutrophils (Bld) [#/Vol] 3.5 10*3/uL 2.0-7.7 [facility] Neutrophils/100 WBC (Bld) 82.1 % 47-70 [facility] Potassium [Moles/Vol] 3.3 mmol/L 3.5-5.1 [facility] Protein [Mass/Vol] 6.1 g/dL 6.4-8.2 [facility] Sodium [Moles/Vol] 137 mmol/L 136-145 [facility] WBC (Bld) [#/Vol] 4.2 10*3/uL 4.4-11.0 [facility] Blood erythrocytes count (nu mber/volume)Ordered By: Lucy Partida on 12-16-2022 RBC (Bld) [#/Vol] 4.29 10*6/uL 4.6-6.2 [facility] Blood hemoglobin measurement (mass/volume)Ordered By: Lucy Partida on 12-16-2022 Hemoglobin (Bld) [Mass/Vol] 13.1 g/dL 13.0-16.5 [facility] Blood lymphocytes/100 leukoc ytesOrdered By: Lucy Partida on 12-16-2022 Lymphocytes/100 WBC (Bld) 5.9 % 19-41 [facility] Blood manual differential co mment interpretation (narrative result)Ordered By: Lucy Partida on 12-16-2022 Manual differential comment Ildefonso (Bld) [Interp] SCANNED [facility] Comment on above: LYMPHOPENIA Blood monocytes/100 leukocyt esOrdered By: Lucy Partida on 12-16-2022 Monocytes/100 WBC (Bld) 11.1 % 0-10 [facility] Blood platelet adequacy dete ction by light microscopyOrdered By: Lucy Partida on 12-16-2022 Platelets LM Ql (Bld) SLT DEC ADEQ [facility] Blood platelet mean volumeOr dered By: Lucy Partida on 12-16-2022 Platelet mean volume (Bld) [Entitic vol] 11.5 fL 6.2-12.0 [facility] Determination of erythrocyte mean corpuscular volume (MCV)Ordered By: Lucy Partida on 12-16-2022 MCV (RBC) [Entitic vol] 88.3 fL 80-94 [facility] Hematocrit Auto (Bld) [Volum e fraction]Ordered By: Lucy Partida on 12-16-2022 Hematocrit (Bld) [Volume fraction] 37.9 % 40-54 [facility] Laboratory - Chemistry and C hemistry - challengeOrdered By: Lucy Partida on 12-16-2022 ALP [Catalytic activity/Vol] 59 U/L 45-117 [facility] ALT [Catalytic activity/Vol] 41 U/L 16-61 [facility] CO2 [Moles/Vol] 22.0 mmol/L 21.0-32.0 [facility] Globulin (S) [Mass/Vol] 3.3 g/dL 2.2-4.2 [facility] Urea nitrogen/Creatinine [Mass ratio] 12.7 mg/mg 10-20 [facility] Laboratory - Hematology and Cell countsOrdered By: Lucy Partida on 12-16-2022 Erythrocyte distribution width (RBC) [Entitic vol] 42.5 fL 35.1-43.9 [facility] Erythrocyte distribution width (RBC) [Ratio] 13.2 % 11.6-14.6 [facility] Immature granulocytes/100 WBC (Bld) 0.500 % 0.0-0.9 [facility] Comment on above: IG% - Immature Granu locytes (promyelocytes, myelocytes and metamyelocytes) > 1% indicates that a LEFT SHIFT is Present. MCH (RBC) [Entitic mass] 30.5 pg 27.0-32.0 [facility] Nucleated RBC/100 WBC (Bld) [Ratio] 0 % 0-5 [facility] MCHC Auto (RBC) [Mass/Vol]Or dered By: Lucy Partida on 12-16-2022 MCHC (RBC) [Mass/Vol] 34.6 g/dL 32-36 [facility] No Panel InformationOrdered By: Lucy Partida on 12-16-2022 Estimated Creatinine Clearance Calc 84.38 ml/min [facility] Estimated GFR (MDRD) Amer 86 mL/min >60 [facility] Comment on above: GFR Calc Estimated GFR (MDRD) Non-Af Amer 71 mL/min >60 [facility] Comment on above: Non- GFR Calc Platelets bldOrdered By: Michael Partida on 12-16-2022 Platelets (Bld) [#/Vol] 92 10*3/uL 150-450 [facility] Review by pathologistOrdered By: Lucy Partida on 12-16-2022 Pathologist review Ildefonso (Unsp spec) [Interp] Reviewed [facility] Comment on above: Previous reported re sult: October [place] Edited by: RGOCHRISTIANO on 12/16/22:1022Mild Thrombocytopenia.Clinical correlation necessary.Jameson Oden M.D. 12/16/22 AMENDED REPORT 12/16/22 1022 PATH REV previously reported as: October [place] Serum or plasma albumin peterson urement (mass/volume)Ordered By: Lucy Patrida on 12-16-2022 Albumin [Mass/Vol] 2.8 g/dL 3.2-5.0 [facility] Serum or plasma albumin/glob ulin mass ratioOrdered By: Lucy Partida on 12-16-2022 Albumin/Globulin [Mass ratio] 0.8 {ratio} 0.9-2.4 [facility] Serum or plasma calcium peterson urement (mass/volume)Ordered By: Lucy Partida on 12-16-2022 Calcium [Mass/Vol] 7.8 mg/dL 8.5-10.1 [facility] Serum or plasma creatinine m easurement (mass/volume)Ordered By: Lucy Partida on 12-16-2022 Creatinine [Mass/Vol] 1.10 mg/dL 0.70-1.30 [facility] Comment on above: The validity of the calculated GFR & GFRAA in patients over 70 years has not been determined. Clinical correlation is essential. Serum or plasma urea nitroge n measurement (mass/volume)Ordered By: Lucy Partida on 12-16-2022 Urea nitrogen [Mass/Vol] 14 mg/dL 7-18 [facility] Thin prep Papanicolaou smear with manual screeningOrdered By: Lucy Partida on 12-16-2022 Thin prep Papanicolaou smear with manual screening 34 U/L 15-37 [facility] Thin prep Papanicolaou smear with manual screening 7 5-15 [facility] Absolute lymphocyte countOrd ered By: Nahum Dias on 12-15-2022 Lymphocytes Auto (Unsp spec) [#/Vol] 0.19 10*3/uL 0.83-4.51 [facility] Basophil percentageOrdered B y: Nahum Dias on 12-15-2022 Basophils/100 WBC (Bld) 0.2 % 0-1 [facility] Bilirubin [Mass/Vol] 1.40 mg/dL 0.20-1.00 [facility] Comment on above: For patients on eltr ombopag therapy, use of Dimension [place] TBIL is not recommended. Chloride [Moles/Vol] 105 mmol/L 98-107 [facility] Eosinophils/100 WBC (Bld) 0.7 % 0-5 [facility] Glucose [Mass/Vol] 131 mg/dL 74-106 [facility] Comment on above: Fasting Glucose resu lt greater than or equal to 126 mg/dL suggests DIABETES MELLITUS per A.D.A. criteria. Lactate [Moles/Vol] 1.7 mmol/L 0.4-2.0 [facility] Neutrophils (Bld) [#/Vol] 3.9 10*3/uL 2.0-7.7 [facility] Neutrophils/100 WBC (Bld) 90.2 % 47-70 [facility] Potassium [Moles/Vol] 3.3 mmol/L 3.5-5.1 [facility] Protein [Mass/Vol] 7.4 g/dL 6.4-8.2 [facility] Sodium [Moles/Vol] 135 mmol/L 136-145 [facility] WBC (Bld) [#/Vol] 4.3 10*3/uL 4.4-11.0 [facility] Blood erythrocytes count (nu mber/volume)Ordered By: Nahum Dias on 12-15-2022 RBC (Bld) [#/Vol] 4.61 10*6/uL 4.6-6.2 [facility] Blood hemoglobin measurement (mass/volume)Ordered By: Nahum Dias on 12-15-2022 Hemoglobin (Bld) [Mass/Vol] 14.4 g/dL 13.0-16.5 [facility] Blood lymphocytes/100 leukoc ytesOrdered By: Nahum Dias on 12-15-2022 Lymphocytes/100 WBC (Bld) 4.4 % 19-41 [facility] Blood manual differential co mment interpretation (narrative result)Ordered By: Nahum Dias on 12-15-2022 Manual differential comment Ildefonso (Bld) [Interp] SCANNED [facility] Comment on above: LYMPHOPENIA NOTEDTHR OMBOCYTOPENIA NOTED Blood monocytes/100 leukocyt esOrdered By: Nahum Dias on 12-15-2022 Monocytes/100 WBC (Bld) 4.0 % 0-10 [facility] Blood platelet mean volumeOr dered By: Nahum Dias on 12-15-2022 Platelet mean volume (Bld) [Entitic vol] 11.6 fL 6.2-12.0 [facility] Determination of erythrocyte mean corpuscular volume (MCV)Ordered By: Nahum Dias on 12-15-2022 MCV (RBC) [Entitic vol] 89.2 fL 80-94 [facility] Hematocrit Auto (Bld) [Volum e fraction]Ordered By: Nahum Dias on 12-15-2022 Hematocrit (Bld) [Volume fraction] 41.1 % 40-54 [facility] INR in Blood by Coagulation assayOrdered By: Nahum Dias on 12-15-2022 INR Coag (Bld) [Relative time] 1.2 {INR} [facility] Laboratory - Chemistry and C hemistry - challengeOrdered By: Nahum Dias on 12-15-2022 ALP [Catalytic activity/Vol] 77 U/L 45-117 [facility] ALT [Catalytic activity/Vol] 47 U/L 16-61 [facility] CO2 [Moles/Vol] 21.0 mmol/L 21.0-32.0 [facility] Globulin (S) [Mass/Vol] 3.9 g/dL 2.2-4.2 [facility] Urea nitrogen/Creatinine [Mass ratio] 12.5 mg/mg 10-20 [facility] Laboratory - Chemistry and C hemistry - challengeOrdered By: Lucy Partida on 12-15-2022 Magnesium [Mass/Vol] 1.8 mg/dL 1.6-2.6 [facility] Laboratory - CoagulationOrde red By: Nahum Dias on 12-15-2022 aPTT Coag (Bld) [Time] 32.2 s 24.1-36.2 [facility] PT Coag (PPP) [Time] 14.9 s 11.7-14.9 [facility] Laboratory - Hematology and Cell countsOrdered By: Nahum Dias on 12-15-2022 Erythrocyte distribution width (RBC) [Entitic vol] 43.3 fL 35.1-43.9 [facility] Erythrocyte distribution width (RBC) [Ratio] 13.2 % 11.6-14.6 [facility] Immature granulocytes/100 WBC (Bld) 0.500 % 0.0-0.9 [facility] Comment on above: IG% - Immature Granu locytes (promyelocytes, myelocytes and metamyelocytes) > 1% indicates that a LEFT SHIFT is Present. MCH (RBC) [Entitic mass] 31.2 pg 27.0-32.0 [facility] Nucleated RBC/100 WBC (Bld) [Ratio] 0 % 0-5 [facility] MCHC Auto (RBC) [Mass/Vol]Or dered By: Nahum Dias on 12-15-2022 MCHC (RBC) [Mass/Vol] 35.0 g/dL 32-36 [facility] No Panel InformationOrdered By: Nahum Dias on 12-15-2022 Estimated Creatinine Clearance Calc 68.24 ml/min [facility] Estimated GFR (MDRD) Amer 68 mL/min >60 [facility] Comment on above: GFR Calc Estimated GFR (MDRD) Non-Af Amer 56 mL/min >60 [facility] Comment on above: Non- GFR Calc Platelets bldOrdered By: Olivia Dias on 12-15-2022 Platelets (Bld) [#/Vol] 87 10*3/uL 150-450 [facility] Respiratory pathogens detect ion panel by molecular detection methodOrdered By: Lucy Partida on 12-15-2022 Respiratory pathogens DNA and RNA panel ASHLEY+probe (Resp) [facility] Serum or plasma albumin peterson urement (mass/volume)Ordered By: Nahum Dias on 12-15-2022 Albumin [Mass/Vol] 3.5 g/dL 3.2-5.0 [facility] Serum or plasma albumin/glob ulin mass ratioOrdered By: Nahum Dias on 12-15-2022 Albumin/Globulin [Mass ratio] 0.9 {ratio} 0.9-2.4 [facility] Serum or plasma calcium peterson urement (mass/volume)Ordered By: Nahum Dias on 12-15-2022 Calcium [Mass/Vol] 8.6 mg/dL 8.5-10.1 [facility] Serum or plasma creatinine m easurement (mass/volume)Ordered By: Nahum Dias on 12-15-2022 Creatinine [Mass/Vol] 1.36 mg/dL 0.70-1.30 [facility] Comment on above: The validity of the calculated GFR & GFRAA in patients over 70 years has not been determined. Clinical correlation is essential. Serum or plasma urea nitroge n measurement (mass/volume)Ordered By: Nahum Dias on 12-15-2022 Urea nitrogen [Mass/Vol] 17 mg/dL 7-18 [facility] Thin prep Papanicolaou smear with manual screeningOrdered By: Nahum Dias on 12-15-2022 Thin prep Papanicolaou smear with manual screening 36 U/L 15-37 [facility] Thin prep Papanicolaou smear with manual screening 9 5-15 [facility] Absolute lymphocyte countOrd ered By: Vee Horton on 12-14-2022 Lymphocytes Auto (Unsp spec) [#/Vol] 1.07 10*3/uL 0.83-4.51 [facility] Basophil percentageOrdered B y: Vee Horton on 12-14-2022 Basophil percentage >100 SEEN /hpf 0-5 [facility] Lactate [Moles/Vol] 1.4 mmol/L 0.4-2.0 [facility] Basophils/100 WBC (Bld) 0.2 % 0-1 [facility] Bilirubin [Mass/Vol] 2.30 mg/dL 0.20-1.00 [facility] Comment on above: For patients on eltr ombopag therapy, use of Dimension [place] TBIL is not recommended. Chloride [Moles/Vol] 105 mmol/L 98-107 [facility] Eosinophils/100 WBC (Bld) 0.1 % 0-5 [facility] Glucose [Mass/Vol] 100 mg/dL 74-106 [facility] Comment on above: Fasting Glucose resu lt from 100 to 125 mg/dL suggests IMPAIRED HOMEOSTASIS per A.D.A. criteria. Neutrophils (Bld) [#/Vol] 13.5 10*3/uL 2.0-7.7 [facility] Neutrophils/100 WBC (Bld) 85.4 % 47-70 [facility] Potassium [Moles/Vol] 3.0 mmol/L 3.5-5.1 [facility] Protein [Mass/Vol] 7.1 g/dL 6.4-8.2 [facility] Sodium [Moles/Vol] 138 mmol/L 136-145 [facility] WBC (Bld) [#/Vol] 15.8 10*3/uL 4.4-11.0 [facility] Bilirubin Test strip Ql (U)O rdered By: Vee Horton on 12-14-2022 Bilirubin Ql (U) 3 mg/dL Negative [facility] Comment on above: COLOR OF URINE MAY A FFECT DIPSTICK RESULTS. Blood erythrocytes count (nu mber/volume)Ordered By: Vee Horton on 12-14-2022 RBC (Bld) [#/Vol] 5.18 10*6/uL 4.6-6.2 [facility] Blood hemoglobin measurement (mass/volume)Ordered By: Vee Horton on 12-14-2022 Hemoglobin (Bld) [Mass/Vol] 15.7 g/dL 13.0-16.5 [facility] Blood lymphocytes/100 leukoc ytesOrdered By: Vee Horton on 12-14-2022 Lymphocytes/100 WBC (Bld) 6.8 % 19-41 [facility] Blood monocytes/100 leukocyt esOrdered By: Vee Horton on 12-14-2022 Monocytes/100 WBC (Bld) 6.9 % 0-10 [facility] Blood platelet mean volumeOr dered By: Vee Horton on 12-14-2022 Platelet mean volume (Bld) [Entitic vol] 11.9 fL 6.2-12.0 [facility] Culture, urineOrdered By: Matt Horton on 12-14-2022 Bacteria identified Cx Nom (U) Escherichia coli [facility] Determination of erythrocyte mean corpuscular volume (MCV)Ordered By: Vee Horton on 12-14-2022 MCV (RBC) [Entitic vol] 90.2 fL 80-94 [facility] Hematocrit Auto (Bld) [Volum e fraction]Ordered By: Vee Horton on 12-14-2022 Hematocrit (Bld) [Volume fraction] 46.7 % 40-54 [facility] INR in Blood by Coagulation assayOrdered By: Vee Horton on 12-14-2022 INR Coag (Bld) [Relative time] 1.1 {INR} [facility] Ketones Test strip Ql (U)Ord ered By: Vee Horton on 12-14-2022 Ketones Ql (U) 15 mg/dl Negative [facility] Laboratory - Chemistry and C hemistry - challengeOrdered By: Vee Horton on 12-14-2022 ALP [Catalytic activity/Vol] 79 U/L 45-117 [facility] ALT [Catalytic activity/Vol] 25 U/L 16-61 [facility] CO2 [Moles/Vol] 28.0 mmol/L 21.0-32.0 [facility] Globulin (S) [Mass/Vol] 3.6 g/dL 2.2-4.2 [facility] Urea nitrogen/Creatinine [Mass ratio] 11.1 mg/mg 10-20 [facility] Laboratory - CoagulationOrde red By: Vee Horton on 12-14-2022 aPTT Coag (Bld) [Time] 34.2 s 24.1-36.2 [facility] PT Coag (PPP) [Time] 14.5 s 11.7-14.9 [facility] Laboratory - Hematology and Cell countsOrdered By: Vee Horton on 12-14-2022 Erythrocyte distribution width (RBC) [Entitic vol] 43.7 fL 35.1-43.9 [facility] Erythrocyte distribution width (RBC) [Ratio] 13.3 % 11.6-14.6 [facility] Immature granulocytes/100 WBC (Bld) 0.600 % 0.0-0.9 [facility] Comment on above: IG% - Immature Granu locytes (promyelocytes, myelocytes and metamyelocytes) > 1% indicates that a LEFT SHIFT is Present. MCH (RBC) [Entitic mass] 30.3 pg 27.0-32.0 [facility] Nucleated RBC/100 WBC (Bld) [Ratio] 0 % 0-5 [facility] MCHC Auto (RBC) [Mass/Vol]Or dered By: Vee Horton on 12-14-2022 MCHC (RBC) [Mass/Vol] 33.6 g/dL 32-36 [facility] Mucus LM Ql (Urine sed)Order ed By: Vee Horton on 12-14-2022 Mucus Ql (Urine sed) 0 SEEN /hpf [facility] Nitrite Test strip Ql (U)Ord ered By: Vee Horton on 12-14-2022 Nitrite Ql (U) Positive Negative [facility] No Panel InformationOrdered By: Vee Horton on 12-14-2022 Urine Transitional Epithelial Cells 0-5 SEEN /hpf 0-5 [facility] Estimated Creatinine Clearance Calc 68.75 ml/min [facility] Estimated GFR (MDRD) Amer 68 mL/min >60 [facility] Comment on above: GFR Calc Estimated GFR (MDRD) Non-Af Amer 56 mL/min >60 [facility] Comment on above: Non- GFR Calc Platelets bldOrdered By: Funmi Horton on 12-14-2022 Platelets (Bld) [#/Vol] 138 10*3/uL 150-450 [facility] Protein Test strip Ql (U)Ord ered By: Vee Horton on 12-14-2022 Protein Ql (U) 100 mg/dl Negative [facility] Serum or plasma albumin peterson urement (mass/volume)Ordered By: Vee Horton on 12-14-2022 Albumin [Mass/Vol] 3.5 g/dL 3.2-5.0 [facility] Serum or plasma albumin/glob ulin mass ratioOrdered By: Vee Horton on 12-14-2022 Albumin/Globulin [Mass ratio] 1.0 {ratio} 0.9-2.4 [facility] Serum or plasma calcium peterson urement (mass/volume)Ordered By: Vee Horton on 12-14-2022 Calcium [Mass/Vol] 8.8 mg/dL 8.5-10.1 [facility] Serum or plasma creatinine m easurement (mass/volume)Ordered By: Vee Horton on 12-14-2022 Creatinine [Mass/Vol] 1.35 mg/dL 0.70-1.30 [facility] Comment on above: The validity of the calculated GFR & GFRAA in patients over 70 years has not been determined. Clinical correlation is essential. Serum or plasma urea nitroge n measurement (mass/volume)Ordered By: Vee Horton on 12-14-2022 Urea nitrogen [Mass/Vol] 15 mg/dL 7-18 [facility] Squamous epithelial cells de tection in urine sediment by light microscopyOrdered By: Vee Horton on 12-14-2022 Epithelial cells.squamous LM Ql (Urine sed) 0-5 SEEN /hpf 0-5 [facility] Thin prep Papanicolaou smear with manual screeningOrdered By: Vee Horton on 12-14-2022 Thin prep Papanicolaou smear with manual screening 10 U/L 15-37 [facility] Thin prep Papanicolaou smear with manual screening 5 5-15 [facility] UA DIP, URINE (POC)on 2022 BILIRUBIN UA (POCT) Small Abnormal Negative [facility] CLARITY UA (POCT) Cloudy [facility] COLOR UA (POCT) Kath [facility] GLUCOSE UA (POCT) Negative Negative mg/dL [facility] HEMOGLOBIN/BLOOD UA (POCT) Large Abnormal Negative [facility] KETONE UA (POCT) Trace Negative mg/dL [facility] LEUKOCYTES UA (POCT) Small Abnormal Negative [facility] NITRITE UA (POCT) Positive Abnormal Negative [facility] PH UA (POCT) 5.5 4.5 - 8.0 [facility] Protein Ql (U) >=300 Abnormal Negative mg/dL [facility] SPECIFIC GRAVITY UA (POCT) >=1.030 1.005 - 1.030 [facility] UROBILINOGEN UA (POCT) 1.0 E.U./dL Normal E.U./dL [facility] Urine blood detectionOrdered By: Vee Horton on 12-14-2022 RBC Ql (U) 250 /ul Negative [facility] RBC Ql (U) 50-100 SEEN /hpf 0-5 [facility] Urine clarityOrdered By: Funmi Horton on 12-14-2022 Clarity (U) Cloudy Clear [facility] Urine color determinationOrd ered By: Vee Horton on 12-14-2022 Color (U) Kath Yellow [facility] Urine glucose detectionOrder ed By: Vee Horton on 12-14-2022 Glucose Ql (U) Normal mg/dl Normal [facility] Urine leukocyte esterase det ection by dipstickOrdered By: Vee Horton on 12-14-2022 Leukocyte esterase Test strip Ql (U) 500 /ul Negative [facility] Urine pHOrdered By: Vee Horton on 12-14-2022 pH (U) 6.0 [pH] 5.0 - 8.0 [facility] Urine sediment bacteria coun t by microscopy (number/high power field)Ordered By: Vee Horton on 12-14-2022 Bacteria LM.HPF (Urine sed) [#/Area] 1 /[HPF] None Seen [facility] Urine specific gravity measu rementOrdered By: Vee Horton on 12-14-2022 Specific gravity (U) [Rel density] 1.020 1.002-1.03 0 [facility] Urobilinogen Auto test strip Ql (U)Ordered By: Vee Horton on 12-14-2022 Urobilinogen Ql (U) 4 mg/dl Normal [facility] Basophil percentageOrdered B y: Aparna Gooden on 08-08-2022 Chloride [Moles/Vol] 105 mmol/L 98-107 [facility] Glucose [Mass/Vol] 131 mg/dL 74-106 [facility] Comment on above: Fasting Glucose resu lt greater than or equal to 126 mg/dL suggests DIABETES MELLITUS per A.D.A. criteria. Potassium [Moles/Vol] 3.9 mmol/L 3.5-5.1 [facility] Sodium [Moles/Vol] 140 mmol/L 136-145 [facility] Laboratory - Chemistry and C hemistry - challengeOrdered By: Aparna Gooden on 08-08-2022 CO2 [Moles/Vol] 31.0 mmol/L 21.0-32.0 [facility] Urea nitrogen/Creatinine [Mass ratio] 13.3 mg/mg 10- [facility] No Panel InformationOrdered By: Aparna Gooden on 08-08-2022 Estimated Creatinine Clearance Calc 78.38 ml/min [facility] Estimated GFR (MDRD) Amer 78 mL/min >60 [facility] Comment on above: GFR Calc Estimated GFR (MDRD) Non-Af Amer 65 mL/min >60 [facility] Comment on above: Non- GFR Calc Serum or plasma calcium peterson urement (mass/volume)Ordered By: Aparna Gooden on 08-08-2022 Calcium [Mass/Vol] 9.4 mg/dL 8.5-10.1 [facility] Serum or plasma creatinine m easurement (mass/volume)Ordered By: Aparna Gooden on 08-08-2022 Creatinine [Mass/Vol] 1.20 mg/dL 0.70-1.30 [facility] Comment on above: The validity of the calculated GFR & GFRAA in patients over 70 years has not been determined. Clinical correlation is essential. Serum or plasma urea nitroge n measurement (mass/volume)Ordered By: Aparna Gooden on 08-08-2022 Urea nitrogen [Mass/Vol] 16 mg/dL 7-18 [facility] Thin prep Papanicolaou smear with manual screeningOrdered By: Aparna Gooden on 08-08-2022 Thin prep Papanicolaou smear with manual screening 4 5-15 [facility] Basophil percentageOrdered B y: Dr. Alfred on 06-16-2022 Chloride [Moles/Vol] 109 mmol/L 98-107 [facility] Glucose [Mass/Vol] 103 mg/dL 74-106 [facility] Comment on above: Fasting Glucose resu lt from 100 to 125 mg/dL suggests IMPAIRED HOMEOSTASIS per A.D.A. criteria. Potassium [Moles/Vol] 3.9 mmol/L 3.5-5.1 [facility] Comment on above: Slight Hemolysis, Re sult may be falsely increased. Sodium [Moles/Vol] 142 mmol/L 136-145 [facility] Laboratory - Chemistry and C hemistry - challengeOrdered By: Dr. Alfred on 06-16-2022 CO2 [Moles/Vol] 30.0 mmol/L 21.0-32.0 [facility] Urea nitrogen/Creatinine [Mass ratio] 15.0 mg/mg 10- [facility] No Panel InformationOrdered By: Dr. Alfred on 06-16-2022 Estimated GFR (MDRD) Amer 97 mL/min >60 [facility] Comment on above: GFR Calc Estimated GFR (MDRD) Non-Af Amer 80 mL/min >60 [facility] Comment on above: Non- GFR Calc Serum or plasma calcium peterson urement (mass/volume)Ordered By: Dr. Alfred on 06-16-2022 Calcium [Mass/Vol] 8.9 mg/dL 8.5-10.1 [facility] Serum or plasma creatinine m easurement (mass/volume)Ordered By: Dr. Alfred on 06-16-2022 Creatinine [Mass/Vol] 1.00 mg/dL 0.70-1.30 [facility] Comment on above: The validity of the calculated GFR & GFRAA in patients over 70 years has not been determined. Clinical correlation is essential. Serum or plasma urea nitroge n measurement (mass/volume)Ordered By: Dr. Alfred on 06-16-2022 Urea nitrogen [Mass/Vol] 15 mg/dL 7-18 [facility] Thin prep Papanicolaou smear with manual screeningOrdered By: Dr. Alfred on 06-16-2022 Thin prep Papanicolaou smear with manual screening 3 5-15 [facility] Absolute lymphocyte countOrd ered By: Dr. Shi on 05-07-2022 Lymphocytes Auto (Unsp spec) [#/Vol] 1.31 10*3/uL 0.83-4.51 [facility] Basophil percentageOrdered B y: Dr. Shi on 05-07-2022 Basophils/100 WBC (Bld) 0.3 % 0-1 [facility] Chloride [Moles/Vol] 109 mmol/L 98-107 [facility] Eosinophils/100 WBC (Bld) 1.6 % 0-5 [facility] Glucose [Mass/Vol] 101 mg/dL 74-106 [facility] Comment on above: Fasting Glucose resu lt from 100 to 125 mg/dL suggests IMPAIRED HOMEOSTASIS per A.D.A. criteria. Neutrophils (Bld) [#/Vol] 3.9 10*3/uL 2.0-7.7 [facility] Neutrophils/100 WBC (Bld) 66.6 % 47-70 [facility] Potassium [Moles/Vol] 3.7 mmol/L 3.5-5.1 [facility] Sodium [Moles/Vol] 141 mmol/L 136-145 [facility] WBC (Bld) [#/Vol] 5.8 10*3/uL 4.4-11.0 [facility] Blood erythrocytes count (nu mber/volume)Ordered By: Dr. Shi on 05-07-2022 RBC (Bld) [#/Vol] 5.62 10*6/uL 4.6-6.2 [facility] Blood hemoglobin measurement (mass/volume)Ordered By: Dr. Shi on 05-07-2022 Hemoglobin (Bld) [Mass/Vol] 16.1 g/dL 13.0-16.5 [facility] Blood lymphocytes/100 leukoc ytesOrdered By: Dr. Shi on 05-07-2022 Lymphocytes/100 WBC (Bld) 22.6 % 19-41 [facility] Blood monocytes/100 leukocyt esOrdered By: Dr. Shi on 05-07-2022 Monocytes/100 WBC (Bld) 8.6 % 0-10 [facility] Blood platelet mean volumeOr dered By: Dr. Shi on 05-07-2022 Platelet mean volume (Bld) [Entitic vol] 11.5 fL 6.2-12.0 [facility] Determination of erythrocyte mean corpuscular volume (MCV)Ordered By: Dr. Shi on 05-07-2022 MCV (RBC) [Entitic vol] 85.4 fL 80-94 [facility] Hematocrit Auto (Bld) [Volum e fraction]Ordered By: Dr. Shi on 05-07-2022 Hematocrit (Bld) [Volume fraction] 48.0 % 40-54 [facility] Laboratory - Chemistry and C hemistry - challengeOrdered By: Dr. Shi on 05-07-2022 CO2 [Moles/Vol] 29.0 mmol/L 21.0-32.0 [facility] Urea nitrogen/Creatinine [Mass ratio] 10.6 mg/mg 10-20 [facility] Laboratory - Hematology and Cell countsOrdered By: Dr. Shi on 05-07-2022 Erythrocyte distribution width (RBC) [Entitic vol] 42.3 fL 35.1-43.9 [facility] Erythrocyte distribution width (RBC) [Ratio] 13.8 % 11.6-14.6 [facility] Immature granulocytes/100 WBC (Bld) 0.300 % 0.0-0.9 [facility] Comment on above: IG% - Immature Granu locytes (promyelocytes, myelocytes and metamyelocytes) > 1% indicates that a LEFT SHIFT is Present. MCH (RBC) [Entitic mass] 28.6 pg 27.0-32.0 [facility] Nucleated RBC/100 WBC (Bld) [Ratio] 0 % 0-5 [facility] MCHC Auto (RBC) [Mass/Vol]Or dered By: Dr. Shi on 05-07-2022 MCHC (RBC) [Mass/Vol] 33.5 g/dL 32-36 [facility] No Panel InformationOrdered By: Dr. Shi on 05-07-2022 Troponin I High Sensitivity 13 pg/mL 3.0-78.0 [facility] Comment on above: Please Note: New Crissy t Units and Gender Specific Reference Ranges. For more information see Policy Stat Procedure [place] High Sensitivity Troponin (TNIH) and attachments. Estimated Creatinine Clearance Calc 90.43 ml/min [facility] Estimated GFR (MDRD) Amer 92 mL/min >60 [facility] Comment on above: GFR Calc Estimated GFR (MDRD) Non-Af Amer 76 mL/min >60 [facility] Comment on above: Non- GFR Calc Platelets bldOrdered By: Dr. Shi on 05-07-2022 Platelets (Bld) [#/Vol] 156 10*3/uL 150-450 [facility] Serum or plasma calcium peterson urement (mass/volume)Ordered By: Dr. Shi on 05-07-2022 Calcium [Mass/Vol] 8.8 mg/dL 8.5-10.1 [facility] Serum or plasma creatinine m easurement (mass/volume)Ordered By: Dr. Shi on 05-07-2022 Creatinine [Mass/Vol] 1.04 mg/dL 0.70-1.30 [facility] Comment on above: The validity of the calculated GFR & GFRAA in patients over 70 years has not been determined. Clinical correlation is essential. Serum or plasma urea nitroge n measurement (mass/volume)Ordered By: Dr. Shi on 05-07-2022 Urea nitrogen [Mass/Vol] 11 mg/dL 7-18 [facility] Thin prep Papanicolaou smear with manual screeningOrdered By: Dr. Shi on 05-07-2022 Thin prep Papanicolaou smear with manual screening 3 5-15 [facility] Absolute lymphocyte countOrd ered By: Dr. Alfred on 04-29-2022 Lymphocytes Auto (Unsp spec) [#/Vol] 1.25 10*3/uL 0.83-4.51 [facility] Basophil percentageOrdered B y: Dr. Alfred on 04-29-2022 Basophils/100 WBC (Bld) 0.3 % 0-1 [facility] Chloride [Moles/Vol] 107 mmol/L 98-107 [facility] Eosinophils/100 WBC (Bld) 1.2 % 0-5 [facility] Glucose [Mass/Vol] 147 mg/dL 74-106 [facility] Comment on above: Fasting Glucose resu lt greater than or equal to 126 mg/dL suggests DIABETES MELLITUS per A.D.A. criteria. Neutrophils (Bld) [#/Vol] 5.5 10*3/uL 2.0-7.7 [facility] Neutrophils/100 WBC (Bld) 74.4 % 47-70 [facility] Potassium [Moles/Vol] 3.7 mmol/L 3.5-5.1 [facility] Sodium [Moles/Vol] 141 mmol/L 136-145 [facility] WBC (Bld) [#/Vol] 7.4 10*3/uL 4.4-11.0 [facility] Blood erythrocytes count (nu mber/volume)Ordered By: Dr. Alfred on 04-29-2022 RBC (Bld) [#/Vol] 5.68 10*6/uL 4.6-6.2 [facility] Blood hemoglobin measurement (mass/volume)Ordered By: Dr. Alfred on 04-29-2022 Hemoglobin (Bld) [Mass/Vol] 16.8 g/dL 13.0-16.5 [facility] Blood lymphocytes/100 leukoc ytesOrdered By: Dr. Alfred on 04-29-2022 Lymphocytes/100 WBC (Bld) 16.9 % 19-41 [facility] Blood monocytes/100 leukocyt esOrdered By: Dr. Alfred on 04-29-2022 Monocytes/100 WBC (Bld) 6.9 % 0-10 [facility] Blood platelet mean volumeOr dered By: Dr. Alfred on 04-29-2022 Platelet mean volume (Bld) [Entitic vol] 12.1 fL 6.2-12.0 [facility] Determination of erythrocyte mean corpuscular volume (MCV)Ordered By: Dr. Alfred on 04-29-2022 MCV (RBC) [Entitic vol] 86.3 fL 80-94 [facility] Hematocrit Auto (Bld) [Volum e fraction]Ordered By: Dr. Alfred on 04-29-2022 Hematocrit (Bld) [Volume fraction] 49.0 % 40-54 [facility] Laboratory - Chemistry and C hemistry - challengeOrdered By: Dr. Alfred on 04-29-2022 CO2 [Moles/Vol] 28.0 mmol/L 21.0-32.0 [facility] Magnesium [Mass/Vol] 2.3 mg/dL 1.6-2.6 [facility] Urea nitrogen/Creatinine [Mass ratio] 16.2 mg/mg 10-20 [facility] Laboratory - Hematology and Cell countsOrdered By: Dr. Alfred on 04-29-2022 Erythrocyte distribution width (RBC) [Entitic vol] 42.8 fL 35.1-43.9 [facility] Erythrocyte distribution width (RBC) [Ratio] 13.7 % 11.6-14.6 [facility] Immature granulocytes/100 WBC (Bld) 0.300 % 0.0-0.9 [facility] Comment on above: IG% - Immature Granu locytes (promyelocytes, myelocytes and metamyelocytes) > 1% indicates that a LEFT SHIFT is Present. MCH (RBC) [Entitic mass] 29.6 pg 27.0-32.0 [facility] Nucleated RBC/100 WBC (Bld) [Ratio] 0 % 0-5 [facility] ([facility]) [Mass/Vol]Or dered By: Dr. Alfred on 04-29-2022 MCHC (RBC) [Mass/Vol] 34.3 g/dL 32-36 [facility] No Panel InformationOrdered By: Dr. Alfred on 04-29-2022 Estimated GFR (MDRD) Amer 71 mL/min >60 [facility] Comment on above: GFR Calc Estimated GFR (MDRD) Non-Af Amer 59 mL/min >60 [facility] Comment on above: Non- GFR Calc Thyroid Stimulating Hormone (TSH) 1.24 uIU/mL 0.358-3.74 [facility] Platelets bldOrdered By: Dr. Alfred on 04-29-2022 Platelets (Bld) [#/Vol] 163 10*3/uL 150-450 [facility] Serum or plasma calcium peterson urement (mass/volume)Ordered By: Dr. Alfred on 04-29-2022 Calcium [Mass/Vol] 9.5 mg/dL 8.5-10.1 [facility] Serum or plasma creatinine m easurement (mass/volume)Ordered By: Dr. Alfred on 04-29-2022 Creatinine [Mass/Vol] 1.30 mg/dL 0.70-1.30 [facility] Comment on above: The validity of the calculated GFR & GFRAA in patients over 70 years has not been determined. Clinical correlation is essential. Serum or plasma urea nitroge n measurement (mass/volume)Ordered By: Dr. Alfred on 04-29-2022 Urea nitrogen [Mass/Vol] 21 mg/dL 7-18 [facility] Thin prep Papanicolaou smear with manual screeningOrdered By: Dr. Alfred on 04-29-2022 Thin prep Papanicolaou smear with manual screening 6 5-15 [facility] Basophil percentageOrdered B y: Dr. Ramos on 04-25-2022 Testosterone [Mass/Vol] 367.66 ng/dL [facility] Comment on above: CENTRAL 90% REFERENC E RANGES MALE AGE <50 197.44 - 669.58 ng/dL MALE AGE > or = 50 187.72 - 684.19 ng/dL FEMALE AGE <50 8.38 - 35.01 ng/dL FEMALE AGE > or = 50 <7.00 - 35.92 ng/dL Effective as of 01/12/21 Basophil percentageOrdered B y: Dr. Alfred on 04-20-2022 Bilirubin [Mass/Vol] 1.10 mg/dL 0.20-1.00 [facility] Comment on above: For patients on eltr ombopag therapy, use of Dimension [place] TBIL is not recommended. Cholesterol [Mass/Vol] 73 mg/dL <200 [facility] Comment on above: <200 mg/dL Desirable 200-240 mg/dL Borderline >240 mg/dL High Risk Protein [Mass/Vol] 7.3 g/dL 6.4-8.2 [facility] Triglyceride [Mass/Vol] 139 mg/dL <199 [facility] Comment on above: The drugs N-Acetylcy steine and Metamizole may falsely depress this assay.Serum Triglycerides Reference Interval Normal <150 mg/dL Borderline high 150 - 199 mg/dL High 200 - 499 mg/dL Very High > or = 500 mg/dL Direct bilirubinOrdered By: Dr. Alrfed on 04-20-2022 Bilirubin.direct [Mass/Vol] 0.31 mg/dL 0.00-0.30 [facility] LIPID PANEL (OUTSIDE)on Non-HDL Cholesterol [facility] VLDL Cholesterol [facility] Laboratory - Chemistry and C hemistry - challengeOrdered By: Dr. Alfred on 04-20-2022 ALP [Catalytic activity/Vol] 77 U/L 45-117 [facility] ALT [Catalytic activity/Vol] 37 U/L 16-61 [facility] Globulin (S) [Mass/Vol] 3.4 g/dL 2.2-4.2 [facility] No Panel InformationOrdered By: Dr. Alfred on 04-20-2022 Prostate Specific Antigen Screen 2.95 ng/mL 0.00-4.00 [facility] Comment on above: This test was perfor [...] on 04-20-2022 Albumin [Mass/Vol] 3.9 g/dL 3.2-5.0 [facility] Serum or plasma cholesterol in HDL measurement (mass/volume)Ordered By: Dr. Alfred on 04-20-2022 Cholesterol in HDL [Mass/Vol] 27 mg/dL >40 [facility] Comment on above: The drugs N-Acetylcy steine and Metamizole may falsely depress this assay. Reference Range HDL <40 mg/dL Low HDL Cholesterol HDL >or= 60 mg/dL High HDL Cholesterol Serum or plasma cholesterol in VLDL measurement (mass/volume)Ordered By: Dr. Alfred on 04-20-2022 Cholesterol in VLDL [Mass/Vol] 28 mg/dL 5-40 [facility] Serum or plasma low density lipoprotein (LDL) cholesterol measurement (mass/volume)Ordered By: Dr. Alfred on 04-20-2022 Cholesterol in LDL [Mass/Vol] 18 mg/dL 0-130 [facility] Thin prep Papanicolaou smear with manual screeningOrdered By: Dr. Alfred on 04-20-2022 Thin prep Papanicolaou smear with manual screening 21 U/L 15-37 [facility] Absolute lymphocyte counton 02-12-2022 Lymphocytes Auto (Unsp spec) [#/Vol] 1.10 10*3/uL 0.83-4.51 [facility] Work Phone: Basophil percentageon 2021 Basophils/100 WBC (Bld) 0.2 % 0-1 [facility] Work Phone: Bilirubin [Mass/Vol] 1.00 mg/dL 0.20-1.00 [facility] Work Phone: [phone] Comment on above: For patients on eltr ombopag therapy, use of Dimension [place] TBIL is not recommended. Chloride [Moles/Vol] 110 mmol/L 98-107 [facility] Work Phone: Eosinophils/100 WBC (Bld) 2.5 % 0-5 [facility] Work Phone: Glucose [Mass/Vol] 94 mg/dL 74-106 [facility] Work Phone: Neutrophils (Bld) [#/Vol] 3.6 10*3/uL 2.0-7.7 [facility] Work Phone: Neutrophils/100 WBC (Bld) 67.4 % 47-70 [facility] Work Phone: Potassium [Moles/Vol] 4.1 mmol/L 3.5-5.1 [facility] Work Phone: Protein [Mass/Vol] 7.3 g/dL 6.4-8.2 [facility] Work Phone: [phone] Sodium [Moles/Vol] 141 mmol/L 136-145 [facility] Work Phone: WBC (Bld) [#/Vol] 5.3 10*3/uL 4.4-11.0 [facility] Work Phone: Blood erythrocytes count (nu mber/volume)on 02-12-2022 RBC (Bld) [#/Vol] 5.64 10*6/uL 4.6-6.2 [facility]: Blood hemoglobin measurement (mass/volume)on 02-12-2022 Hemoglobin (Bld) [Mass/Vol] 15.8 g/dL 13.0-16.5 [facility] Work Phone: Blood lymphocytes/100 leukoc yteson 02-12-2022 Lymphocytes/100 WBC (Bld) 20.8 % 19-41 [facility] Work Phone: Blood monocytes/100 leukocyt eson 02-12-2022 Monocytes/100 WBC (Bld) 8.9 % 0-10 [facility] Work Phone: Blood platelet mean volumeon 02-12-2022 Platelet mean volume (Bld) [Entitic vol] 11.3 fL 6.2-12.0 [facility] Work Phone: Determination of erythrocyte mean corpuscular volume (MCV)on 02-12-2022 MCV (RBC) [Entitic vol] 86.0 fL 80-94 [facility] Work Phone: Erythrocyte sedimentation ra ankush 02-12-2022 ESR (Bld) [Velocity] 6 mm/h 0-20 [facility] Work Phone: Hematocrit Auto (Bld) [Volum e fraction]on 02-12-2022 Hematocrit (Bld) [Volume fraction] 48.5 % 40-54 [facility] Work Phone: Laboratory - Chemistry and C hemistry - challengeon 02-12-2022 ALP [Catalytic activity/Vol] 74 U/L 45-117 [facility] Work Phone: ALT [Catalytic activity/Vol] 34 U/L 16-61 [facility] Work Phone: CO2 [Moles/Vol] 30.0 mmol/L 21.0-32.0 [facility] Work Phone: Globulin (S) [Mass/Vol] 3.3 g/dL 2.2-4.2 [facility] Work Phone: Urea nitrogen/Creatinine [Mass ratio] 16.0 mg/mg 10-20 [facility] Work Phone: Laboratory - Hematology and Cell countson 02-12-2022 Erythrocyte distribution width (RBC) [Entitic vol] 41.6 fL 35.1-43.9 [facility] Work Phone: Erythrocyte distribution width (RBC) [Ratio] 13.5 % 11.6-14.6 [facility] Work Phone: Immature granulocytes/100 WBC (Bld) 0.200 % 0.0-0.9 [facility] Work Phone: Comment on above: IG% - Immature Granu locytes (promyelocytes, myelocytes and metamyelocytes) > 1% indicates that a LEFT SHIFT is Present. MCH (RBC) [Entitic mass] 28.0 pg 27.0-32.0 [facility] Work Phone: Nucleated RBC/100 WBC (Bld) [Ratio] 0 % 0-5 [facility] Work Phone: MCHC Auto (RBC) [Mass/Vol]on 02-12-2022 MCHC (RBC) [Mass/Vol] 32.6 g/dL 32-36 [facility] Work Phone: No Panel Informationon 02-12 Estimated Creatinine Clearance Calc 88.73 ml/min [facility] Work Phone: Estimated GFR (MDRD) Amer 90 mL/min >60 [facility] Work Phone: Comment on above: GFR Calc Estimated GFR (MDRD) Non-Af Amer 75 mL/min >60 [facility] Work Phone: Comment on above: Non- GFR Calc Platelets bldon 02-12-2022 Platelets (Bld) [#/Vol] 142 10*3/uL 150-450 [facility] Work Phone: Serum or plasma albumin peterson urement (mass/volume)on 02-12-2022 Albumin [Mass/Vol] 4.0 g/dL 3.2-5.0 [facility] Work Phone: Serum or plasma albumin/glob ulin mass ratioon 02-12-2022 Albumin/Globulin [Mass ratio] 1.2 {ratio} 0.9-2.4 [facility] Work Phone: Serum or plasma calcium peterson urement (mass/volume)on 02-12-2022 Calcium [Mass/Vol] 9.1 mg/dL 8.5-10.1 [facility] Work Phone: Serum or plasma creatinine m easurement (mass/volume)on 02-12-2022 Creatinine [Mass/Vol] 1.06 mg/dL 0.70-1.30 [facility] Work Phone: Comment on above: The validity of the calculated GFR & GFRAA in patients over 70 years has not been determined. Clinical correlation is essential. Serum or plasma urea nitroge n measurement (mass/volume)on 02-12-2022 Urea nitrogen [Mass/Vol] 17 mg/dL 7-18 [facility] Work Phone: Thin prep Papanicolaou smear with manual screeningon 02-12-2022 Thin prep Papanicolaou smear with manual screening 20 U/L 15-37 [facility] Work Phone: Thin prep Papanicolaou smear with manual screening 1 5-15 [facility] Work Phone: No Panel Informationon 11-29 D-Dimer Quantitative (PE/DVT) 0.40 FEU/ug/m 0.27-0.49 [facility] Work Phone: Comment on above: NORMAL D-Dimer level (<0.50) indicates no DVT or PE. XR Chest PA and Lateralon IMPRESSION: Left basilar atelectasis or mild infiltrates unchanged. Batting Machine Operator Insulation: LEONELB Transcribe Date/Time: Nov 29 2021 1:44P [...] Left basilar atelectasis or mild infiltrates unchanged. Batting Machine Operator Insulation: OSMANI Transcribe Date/Time: Nov 29 2021 1:44P Dictated by : LETTY THOMAS MD This examination was interpreted and the report reviewed and electronically signed by: LETTY THOMAS MD on Nov 29 2021 1:46PM EST [facility] Radiology Study observation (narrative) [facility] XR Chest PA and LateralOrder ed By: [facility] Provider on 11-29-2021 [facility] Basophil percentageon 2021 Testosterone [Mass/Vol] 128.64 ng/dL [facility] Work Phone: Comment on above: CENTRAL 90% REFERENC E RANGES MALE AGE <50 197.44 - 669.58 ng/dL MALE AGE > or = 50 187.72 - 684.19 ng/dL FEMALE AGE <50 8.38 - 35.01 ng/dL FEMALE AGE > or = 50 <7.00 - 35.92 ng/dL Effective as of 01/12/21 Serum or plasma testosterone free measurement (mass/volume)on 10-20-2021 Testosterone Free [Mass/Vol] 2.0 pg/mL 6.6-18.1 [facility] Work Phone: Comment on above: Performed at: [address] [id number] Director: Teresa Olivia MD, Phone: [phone] No Panel Informationon 09-10 IMPRESSION: 1. Right ankle grossly unremarkable. 2. First MTP joint degenerative arthritis again noted. Bones otherwise intact in the right foot. Batting Machine Operator Insulation: OSMANI Transcribe Date/Time: Sep 10 2021 6:58P Dictated by : MYKE OWEN MD This examination was interpreted and the report reviewed and electronically signed by: MYKE OWEN MD on Sep 10 2021 7:00PM [facility] DIVISION OF RADIOLOGY Radiology Study observation (narrative) [facility] No Panel InformationOrdered By: [facility] Provider on 09-10-2021 [facility] XR Ankle - right AP and Late ral and obliqueon 09-10-2021 * * *Final Report* * * DATE OF EXAM: Sep 10 2021 4:32PM STX 5297 - XR ANKLE 3V AP/LAT/OBL RT / PROCEDURE REASON: Pain * * * * Physician Interpretation * * * * HISTORY: chronic right ankle pain (accession [id number]), chronic right foot pain (accession [id number]). Pain . TECHNIQUE: XR ANKLE 3V AP/LAT/OBL [...] bone unchanged. DIVISION OF [facility]IOLOGY [facility] * * *Final Report* * * DATE OF EXAM: Sep 10 2021 4:32PM STX 5297 - XR ANKLE 3V AP/LAT/OBL RT / PROCEDURE REASON: Pain * * * * Physician Interpretation * * * * HISTORY: chronic right ankle pain (accession [id number]), chronic right foot pain (accession [id number]). Pain . TECHNIQUE: XR ANKLE 3V AP/LAT/OBL [...] Bones otherwise intact in the right foot. Batting Machine Operator Insulation: [facility] Transcribe Date/Time: Sep 10 2021 6:58P Dictated by : MYKE OWEN MD This examination was interpreted and the report reviewed and electronically signed by: MYKE OWEN MD on Sep 10 2021 7:00PM [facility] XR Foot - right AP and Later al and obliqueon 09-10-2021 * * *Final Report* * * DATE OF EXAM: Sep 10 2021 4:32PM STX 5337 - XR FOOT 3V AP/LAT/OBL RT / PROCEDURE REASON: Pain * * * * Physician Interpretation * * * * HISTORY: chronic right ankle pain (accession [id number]), chronic right foot pain (accession [id number]). Pain . TECHNIQUE: XR ANKLE 3V AP/LAT/OBL [...] navicular bone unchanged. DIVISION [facility] RADIOLOGY [facility] * * *Final Report* * * DATE OF EXAM: Sep 10 2021 4:32PM STX 5337 - XR FOOT 3V AP/LAT/OBL RT / PROCEDURE REASON: Pain * * * * Physician Interpretation * * * * HISTORY: chronic right ankle pain (accession [id number]), chronic right foot pain (accession [id number]). Pain . TECHNIQUE: XR ANKLE 3V AP/LAT/OBL [...] Bones otherwise intact in the right foot. Batting Machine Operator Insulation: PSCB Transcribe Date/Time: Sep 10 2021 6:58P Dictated by : MYKE OWEN MD This examination was interpreted and the report reviewed and electronically signed by: MYKE OWEN MD on Sep 10 2021 7:00PM [facility] [place] [facility] DATE OF SERVICE: SUBJECTIVE: Patient is here with a history of gout and right great toe pain beginning several days after he stopped taking his allopurinol. OBJECTIVE: Right great toe is tender. ASSESSMENT: Gout. PLAN: Prednisone 60 mg daily for up to 5 days. Resume other medications. MD ESEQUIEL Godoy/[id number] SSI File#: [id number] END OF DOCUMENT / CHANGE LOG FOLLOWS Last Edited By Elec. Signed By Abraham Rosa MD #NAUTH Abraham Rosa MD #NAUTH on 09/14/2020 09:32 ET on 09/14/2020 09:32 ET Revision Number - 2 * [facility] PATIENT NAME: LAZARO GARZON [address] [facility] MEDICAL REC #: [id number] [place], [place] [facility]ICIAN Verified/Reviewed by 09/14/20 0932 KELVIN * [facility] PATIENT NAME: LAZARO GARZON [address] [facility] MEDICAL REC #: [id number] [place], [place] ADMIT DATE: [facility] PHYSICIAN [facility] XR Foot - right AP and Later al and obliqueon 04-29-2020 IMPRESSION: No acute findings. Batting Machine Operator Insulation: OSMANI Transcribe Date/Time: Apr 29 2020 9:20A Dictated by : NAIDA BARAJAS MD This examination was interpreted and the report reviewed and electronically signed by: NAIDA BARAJAS MD on Apr 29 2020 9:22AM [facility] DIVISION OF RADIOLOGY * * *Final [...] other significant abnormality. DIVISION OF RADIOLOGY Provider, [facility] - 04/29/2020 * * *Final Report* [...] significant abnormality. IMPRESSION IMPRESSION: No acute findings. Batting Machine Operator Insulation: PSCB Transcribe Date/Time: Apr 29 2020 9:20A Dictated by : NAIDA BARAJAS MD This examination was interpreted and the report reviewed and electronically signed by: NAIDA BARAJAS MD on Apr 29 2020 9:22AM [facility] XR Foot - right AP and Later al and obliqueOrdered By: Cc Provider on 04-29-2020 [facility] XR Foot - right AP and Later al and obliqueon 04-28-2020 Radiology Study observation (narrative) [facility] .GFRon 08-28-2019 GFR 75 ml/min/1.73sqm Normal [facility] ([place]) Comment on above: Result Comment: GFR Population [...] Performed By: #### C RE, GFR #### [place] [address] GFR Non- 62 ml/min/1.73sqm Normal [facility] ([place]) Comment on above: Result Comment: GFR Population [...] Performed By: #### C RE, GFR #### [address] [address] CREon 08-28-2019 Creatinine [Mass/Vol] 1.19 mg/dL Normal 0.70-1.30 [facility] ([place]) Comment on above: Performed By: #### C RE, GFR #### [place] [address] CT ENTEROGRAPHY ABD/PELVIS W /CONTRASTon 08-28-2019 CT [...] Date: 08/28/2019 10:39:54 AM Ordering Provider:Fabian Braun [facility] ([place]) EMERGENCY REPORTon 8 EMERGENCY REPORT [facility] EM ERGENCY ROOM REPORT NAME ACCOUNT SEX AGE ADMIT DISCHARGE PT MED. RECORD# NUMBER DATE DATE TYPE DURAN [id number] Sincere 62 10/30/17 10/30/17 3 LAZARO [id number] ROOM: ER DATE OF : 1955 DICTATING [...] years. He has Dr. Alfred for a csr. PAST MEDICAL HISTORY: TIA, hypertension. PAST SURGICAL [...] did try to get him transferred to [facility]; however, they do no have any beds. We are going to call his csr, Dr. Alfred. Dictated By: Jagjit Souza DO 10/30/17 10:48 JOB #: [id number] Transcribed By: am 10/30/17 17:37 Electronically signed by: LOYD Souza D.O. 11/05/17 09:59 Page 2 of 2 LAZARO GARZON Emergency Room Report Normal [facility] APTTon 10-30-2017 aPTT 29.2 s Normal 21.6 - 35.4 [facility] Comment on above: Performed By: #### 2 99332 ####[facility],[address] [place] [address] CBCon 10-30-2017 Basophils Auto #/vol (Bld) 0.00 x10EE3/UL Normal 0.00 - 0.10 [facility] Comment on above: Performed By: #### 2 20054 ####[address],[place] [address] Basophils/100 WBC Auto (Bld) 0.5 % Normal 0.0 - 2.0 [facility] Comment on above: Performed By: #### 2 18573 ####[facility],[address] [place] [address]01 Blood morphology N/A Normal [facility] Comment on above: Result Comment: {CD] Performed By: #### 2 73941 ####[facility],[address] [place] [address] CBC Normal [facility] Comment on above: Result Comment: CBC- COMPLETE BLOOD COUNT Performed By: #### 2 44022 ####[facility],[address] [place], [place] [id number] Eosinophils 0.10 x10EE3/UL Normal 0.00 - 0.50 [facility] Comment on above: Performed By: #### 2 06451 ####[facility],[address] [place], [place] [id number] Eosinophils/100 leukocytes 1.2 % Normal 0.0 - 7.0 [facility] Comment on above: Performed By: #### 2 84144 ####[facility],[address] [place], [place] [id number] Erythrocyte distribution width Auto Ratio (RBC) 14.5 % Normal 12.0 - 15.6 [facility] Comment on above: Performed By: #### 2 27681 ####[facility],[address] [place], [place] [id number] Erythrocytes (RBC) 6.19 x 10EE6/UL High 4.50 - 6.00 [facility] Comment on above: Performed By: #### 2 37440 ####[facility],[address] [place], [place] [address] Hematocrit (HCT) 50.5 % Normal 40.0 - 52.0 [facility] Comment on above: Performed By: #### 2 74927 ####[facility],[address] [place] [address] Hemoglobin mass conc (Bld) 17.7 g/dL High 13.0 - 17.5 [facility] Comment on above: Performed By: #### 2 89605 ####[facility],[address] [place] [address] Lymphocytes 1.20 x10EE3/UL Normal 0.80 - 2.80 [facility] Comment on above: Performed By: #### 2 85310 ####[facility],[address] [place] [address] Lymphocytes/100 leukocytes 20.2 % Normal 20.0 - 45.0 [facility] Comment on above: Performed By: #### 2 99054 ####[facility],[address] [place] [address] MANUAL DIFF N/A Normal [facility] Comment on above: Performed By: #### 2 67631 ####[facility],[address] [place] [address] MCH 29 pg Normal 27 - 33 [facility] Comment on above: Performed By: #### 2 72952 ####[facility],[address] [place], [place] [id number] MCHC mass conc (RBC) 35 X10 3 Normal 32 - 36 [facility] Comment on above: Performed By: #### 2 26466 ####[facility],[address] [place], [place] [id number] MCV 82 fL Normal 81 - 98 [facility] Comment on above: Performed By: #### 2 31919 ####[facility],[address] [place] [address] Monocytes 0.50 x10EE3/UL Normal 0.20 - 1.00 [facility] Comment on above: Performed By: #### 2 76938 ####[facility],[address] [place] [address] MONOS % 8.3 % Normal 0.0 - 10.0 [facility] Comment on above: Performed By: #### 2 82421 ####[facility],[address] [place] [address] Neutrophils 4.30 x10EE3/UL Normal 1.50 - 7.10 [facility] Comment on above: Performed By: #### 2 87918 ####[facility],[address] [place] [address] Neutrophils/100 WBC Auto (Bld) 69.8 % Normal 46.0 - 76.0 [facility] Comment on above: Performed By: #### 2 73336 ####[facility],[address] [place] [address]36 Platelet mean volume (PMV) 9.4 fL Normal 6.4 - 10.5 [facility] Comment on above: Result Comment: AUTO MATED DIFFERENTIAL Performed By: #### 2 35338 ####[facility],[address] [place] [address] Platelets 137 x10EE3/UL Low 150 - 450 [facility] Comment on above: Performed By: #### 2 84234 ####[facility],[address] [place] [address]18 WBC (Leukocytes) 6.2 x 10EE3/UL Normal 4.5 - 10.8 [facility] Comment on above: Performed By: #### 2 18366 ####[facility],[address] [place], [place] [id number] CHEST 1 VIEWon 10-30-2017 CHEST 1 VIEW [place] [address] Patient: LAZARO GARZON Phone#: : 1955 Age: 62 Gender: M Pt. Type: ER Account: [id number] Location: [facility] Ordering: JAGJIT SOUZA Exam Date: 10/30/2017/9:06 Family Phys: Charge Code: [id number] Physician: Walsh Order #: [id number] DLP Dose#: PROCEDURE: X-RAY CHEST 1 VIEW [...] Samayoa MD on 10/30/2017 at 9:28 Normal [facility] CMP with eGFRon 10-30-2017 Age 62 years Normal [facility] Comment on above: Performed By: #### 2 15019 ####[place] [address] Albumin 4.4 g/dL Normal 3.4 - 4.8 [facility] Comment on above: Performed By: #### 2 65625 ####[address] [address] Albumin/Globulin Ratio 1.9 {ratio} High 0.9 - 1.6 [facility] Comment on above: Performed By: #### 2 51851 ####[address] [address] ALK PHOS 55 U/L Normal 38 - 126 [facility] Comment on above: Performed By: #### 2 83411 ####[address] [address] ALT/SGPT 19 U/L Normal 10 - 40 [facility] Comment on above: Performed By: #### 2 74585 ####[address] [address] Anion gap 12 mmol/L Normal 10 - 20 [facility] Comment on above: Performed By: #### 2 30730 ####[facility],[address] [place] [address] AST/SGOT 16 U/L Normal 13 - 39 [facility] Comment on above: Performed By: #### 2 67767 ####[facility],[address] [place] [address] B/C RATIO 15 ratio Normal 0 - 30 [facility] Comment on above: Performed By: #### 2 49849 ####[facility],[address] [place] [address] Bilirubin (total) 1.0 mg/dL Normal 0.0 - 1.5 [facility] Comment on above: Performed By: #### 2 38026 ####[facility],[address] [place] [address] Calcium 9.5 mg/dL Normal 8.6 - 10.2 [facility] Comment on above: Performed By: #### 2 83362 ####[facility],[address] [place] [address] Chloride 103 mmol/L Normal 98 - 107 [facility] Comment on above: Performed By: #### 2 27913 ####[facility],[address] [place] [address] CO2 26.2 mmol/L Normal 21.0 - 31.0 [facility] Comment on above: Performed By: #### 2 68936 ####[facility],[address] [place] [address] Creatinine 1.1 mg/dL Normal 0.7 - 1.3 [facility] Comment on above: Performed By: #### 2 99104 ####[facility],[address] [place] [address] eGFR (non-black) Normal [facility] Comment on above: Result Comment: COMP REHENSIVE METABOLIC PANEL Performed By: #### 2 95307 ####[facility],[address] [place] [address] eGFR (non-black) mL/min/{1.73_m2} Normal 60 - 999 [facility] Comment on above: Performed By: #### 2 13451 ####[facility],[address] [place], [place] [address] Result Comment: ACCO RDING TO THE NATIONAL KIDNEY DISEASE EDUCATION PROGRAM(NKDE), A NORMAL eGFRIS A VALUE GREATER THAN OR EQUAL TO 60 ML/MIN/1.73 SQ METERS.CHRONIC KIDNEY DISEASE: <60mL/MIN/1.73 SQ METERSKIDNEY FAILURE: <15mL/MIN/1.73 SQ METERSTHIS TEST SHOULD ONLY BE USED FOR PATIENTS 18 YEARS OF AGE AND OLDER. Globulin 2.3 g/dL Normal 1.5 - 3.8 [facility] Comment on above: Performed By: #### 2 93318 ####[facility],[address] [place] [address] Glucose mass conc 109 mg/dL High 74 - 106 [facility] Comment on above: Performed By: #### 2 35699 ####[place] [id number] Potassium molar conc 3.5 mmol/L Normal 3.5 - 5.1 [facility] Comment on above: Performed By: #### 2 19794 ####[place] [id number] Protein 6.7 g/dL Normal 6.4 - 8.3 [facility] Comment on above: Performed By: #### 2 74675 ####[place] [id number] Sodium 138 mmol/L Normal 136 - 145 [facility] Comment on above: Performed By: #### 2 55162 ####[place] [id number] Urea nitrogen 16 mg/dL Normal 6 - 20 [facility] Comment on above: Performed By: #### 2 56311 ####[facility],[address] [place] [address] D-DIMER, QUANTITATIVEon 10-17 D-DIMER QUANT 187 ng/ml Normal 0 - 230 [facility] Comment on above: Performed By: #### 2 19776 ####[facility],[address] [place] [address] D-DIMER, QUANTITATIVE Normal [facility] Comment on above: Result Comment: LIN T D-DIMER Performed By: #### 2 47752 ####[facility],[address] [place], [place] [address] MAGNESIUMon 10-30-2017 Magnesium 2.0 mg/dL Normal 1.6 - 2.6 [facility] Comment on above: Performed By: #### 2 58380 ####[facility],[address] [place] [address] PROTHROMBIN TIME AND INRon 0 10-30-2017 INR Coag RelTime (Bld) Normal [facility] Comment on above: Result Comment: PROT HROMBIN TIME AND INR Performed By: #### 2 35580 ####[facility],[address] [place] [address] INR Coag RelTime (PPP) 1.1 {INR} Normal 0.8 - 1.2 [facility] Comment on above: Result Comment: T [...] MECHANICAL HEART VALVES Performed By: #### 2 17015 ####[facility],[address] [place], [place] [id number] PT-COUMADIN 12.1 sec Normal [facility] Comment on above: Performed By: #### 2 85629 ####[place] [address] TROPONINon 10-30-2017 Troponin I.cardiac mass conc ng/mL Normal 0.00 - 0.05 [facility] Comment on above: Result Comment: Elev [...] as heterophile antibodies). Performed By: #### 2 00055 ####[place] [address] Troponin I.cardiac mass conc 0.01 ng/mL Normal 0.00 - 0.05 [facility] Comment on above: Result Comment: Elev [...] as heterophile antibodies). Performed By: #### 2 44120 ####[facility],[address] [place], [place] [address] Lab Report: Lipid Profileon 07-18-2017 Cholesterol 88 mg/dL Invalid Interpretation Code 200 [employer] Work Phone: [phone] HDL Cholesterol 30 mg/dL Low [employer] Work Phone: [phone] LDL Cholesterol 30 mg/dL Invalid Interpretation Code 0-130 [employer] Work Phone: [phone] Triglyceride 138 mg/dL Invalid Interpretation Code [employer] Work Phone: [phone] low density lipoproteins 28 mg/dL Invalid Interpretation Code 5-40 [employer] Phone: [phone] Lab Report: Liver Profileon 07-18-2017 Alanine aminotransferase (ALT) 32 U/L Invalid Interpretation Code 16-61 [facility] [employer] Phone: [phone] Albumin 3.4 g/dL Invalid Interpretation Code 3.2-5.0 [employer] Work Phone: [phone] Alkaline phosphatase (ALP) 59 U/L Invalid Interpretation Code 45-117 [facility] Phone: [phone] Aspartate aminotransferase (AST) 27 U/L Invalid Interpretation Code 15-37 [facility] [employer] Phone: [phone] Bilirubin (direct) 0.16 mg/dL Invalid Interpretation Code 0.00-0.30 [facility] Phone: [phone] Bilirubin (total) 0.70 mg/dL Invalid Interpretation Code 0.20-1.00 [facility] Phone: [phone] Globulin 3.3 g/dL Invalid Interpretation Code 2.2-4.2 [facility] Phone: [phone] Protein 6.7 g/dL Invalid Interpretation Code 6.4-8.2 [facility] Phone: [phone] Office Visiton 12-14-2016 Documentation of current medications (procedure) Done Invalid Interpretation Code [facility] Phone: [phone] Fall risk assessment No Invalid Interpretation Code [facility] Phone: [phone] Protein mass conc Done [facility] Phone: [phone] Replaced Document: Alexa Zaragoza CG Observationson 08-17-2016 EKG QRS axis -44 deg [facility] [employer] Phone: [phone] electrocardiogram interpretation Sinus Rhythm -Left axis -anterior fascicular block. ABNORMAL Invalid Interpretation Code [facility] Phone: [phone] GE use only - for [employer] import when terms are not otherwise specified 395 ms Invalid Interpretation Code [facility] Phone: [phone] Interpretation Sinus Rhythm -Left a xis -anterior fascicular block. ABNORMAL [employer] Work Phone: [phone] P [place] 53 deg [facility] Work Phone: [phone] P wave axis, electrocardiogram 53 deg Invalid Interpretation Code [facility] Work Phone: [phone] ND Interval 218 ms [facility] Work Phone: [phone] ND interval, electrocardiogram 218 ms Invalid Interpretation Code [facility] Work Phone: [phone] Pulse (Heart Rate) 80 /min Invalid Interpretation Code [facility] Work Phone: [phone] QRS axis, electrocardiogram -44 deg Invalid Interpretation Code [facility] Work Phone: [phone] QRS Duration 93 ms [facility] Work Phone: [phone] QRS duration, electrocardiogram 93 ms Invalid Interpretation Code [facility] Work Phone: [phone] QT Interval new path ms [facility] Work Phone: [phone] QT interval, electrocardiogram new path ms Invalid Interpretation Code [facility] Work Phone: [phone] QTc Chou 395 ms [facility] Work Phone: [phone] T [place] 30 deg [facility] Work Phone: [phone] T wave axis, electrocardiogram 30 deg Invalid Interpretation Code [facility] Work Phone: [phone] Clinical Lists Update: Prelo associate sales representative 01-14-2016 Left ventricular Ejection fraction 65 % Invalid Interpretation Code [facility] Work Phone: [phone] Office Visiton 01-04-2016 Dietary management education, guidance, and counseling (procedure) yes Invalid Interpretation Code [facility] Work Phone: [phone] Tobacco smoking status NHIS Tobacco smoking status NHIS Invalid Interpretation Code [facility] Work Phone: [phone] Tobacco smoking status NHIS Former smoker [employer] Work Phone: [phone] Lab Report: Lipid Profileon 04-18-2015 Cholesterol in HDL mass conc 31 mg/dL Low [employer] Work Phone: [phone] Cholesterol in LDL mass conc 27 mg/dL 0-130 [facility] Work Phone: [phone] Cholesterol mass conc 98 mg/dL [address] [facility] Work Phone: [phone] Lipoprotein.pre-beta mass conc 40 mg/dL 5-40 [facility] Work Phone: [phone] Triglyceride mass conc 200 mg/dL High [facility] Work Phone: [phone] Lab Report: Liver Profileon 04-18-2015 Albumin mass conc 4.1 g/dL 3.4-5.0 [facility] Work Phone: [phone] ALP enzyme act/vol (Bld) 85 U/L 50-136 [facility] Work Phone: [phone] ALT enzyme act/vol 39 U/L 12-78 [facility] Work Phone: [phone] AST enzyme act/vol 23 U/L 15-37 [facility] Work Phone: [phone] Bilirubin mass conc 1.20 mg/dL High 0.20-1.00 [facility] Work Phone: [phone] Bilirubin.direct mass conc 0.25 mg/dL 0.00-0.30 [facility] Work Phone: [phone] Globulin mass conc (S) 3.0 g/dL 2.3-3.5 [facility] Work Phone: [phone] Protein mass conc 7.1 g/dL 6.4-8.2 [facility] Work Phone: [phone]) Lab Report: PSA,Total- Diagn osticon 04-18-2015 prostate specific antigen, total 2.47 ng/mL Invalid Interpretation Code 0.0-4.0 [facility] Work Phone: [phone] Protein mass conc 2.47 ng/mL 0.0-4.0 [facility] Work Phone: [phone]) Lab Report: T4 Total, Thyrox inon 04-18-2015 T4 mass conc 9.6 ug/dL Invalid Interpretation Code 4.5-12.1 [facility] Work Phone: [phone]) Lab Report: Thyroid Stim Hor madeleine (TSH)on 04-18-2015 Thyrotropin Qn 1.26 u[iU]/mL Invalid Interpretation Code 0.358-3.74 [facility] Work Phone: [phone] Lab Report: BNP,B-Type NATRI URETIC PEPTIDEon 01-08-2015 Natriuretic peptide B mass conc (Bld) 17.5 pg/mL Invalid Interpretation Code 0-100 [facility] Work Phone: [phone] Office Visiton 09-22-2014 cardiac risk group C Invalid Interpretation Code [facility] Work Phone: [phone] General cardiovascular disease 10Y risk [#] [place].D'Agostdanny N/A Invalid Interpretation Code [facility] Work Phone: [phone] Clinical Lists Update: Prelo associate sales representative 03-29-2014 Cholesterol in LDL/Cholesterol in HDL mass ratio 1.41 Invalid Interpretation Code [facility] Work Phone: [phone] Cholesterol.total/Cho lesterol in HDL mass ratio 3.33 {ratio} Invalid Interpretation Code [facility] Work Phone: [phone] Lab Report: BMPon 12-04-2013 Anion gap 6 mmol/L Normal 5-15 [facility] Work Phone: [phone] Anion gap molar conc 6 mmol/L Normal 5-[address] [facility] Work Phone: [phone] Calcium mass conc 9.1 mg/dL Normal 8.5-10.1 [facility] Work Phone: [phone] Chloride molar conc 105 mmol/L Normal 98-107 [facility] Work Phone: [phone] CO2 29.0 mmol/L Normal 21.0-32.0 [facility] Work Phone: [phone] CO2 ppres (BldV) 29.0 mmol/L Normal 21.0-32.0 [facility] Work Phone: [phone] Creatinine mass conc 1.2 mg/dL Normal 0.8-1.[address] [facility] [address] [facility] Work Phone: [phone] eGFR (non-black) 81 mL/min/{1.73_m2} Normal >60 [facility] Work Phone: [phone] GFR/1.73 sq M predicted among non-blacks MDRD vol rate/area (S/P/Bld) 67 mL/min/{1.73_m2} Normal >60 [employer] Work Phone: [phone] GFRAA 81 mL/min Normal >60 [employer] Work Phone: [phone] Glucose 89 mg/dL Normal 70-110 [employer] Work Phone: [phone] Glucose mass conc 89 mg/dL Normal 70-110 [employer] Work Phone: [phone] Potassium molar conc 4.2 mmol/L Normal 3.5-5.1 [employer] Work Phone: [phone] Sodium molar conc 140 mmol/L Normal 136-145 [employer] Work Phone: [phone] Urea nitrogen mass conc 17 mg/dL Normal 7-18 [employer] Work Phone: [phone] Urea nitrogen/Creatinine mass ratio 14.2 RATIO Normal 10-20 [employer] Work Phone: [phone] Lab Report: CBCon 12-04-2013 Erythrocytes (RBC) 5.61 10*6/uL Normal 4.6-6.2 [employer] Work Phone: [phone] Hematocrit (HCT) 47.4 % Normal 40-54 [employer] Work Phone: [phone] Hematocrit Volume Fraction (Bld) 47.4 % Normal 40-54 [facility] Work Phone: [phone] Hemoglobin mass conc (Bld) 16.7 g/dL High 13.0-16.5 [employer] Work Phone: [phone] MCH 29.8 pg Normal 27.0-32.0 [employer] Work Phone: [phone] MCH Entitic mass (RBC) 29.8 pg Normal 27.0-32.0 [employer] Work Phone: [phone] MCHC 35.2 G/GL Normal 32-36 [employer] Work Phone: [phone] MCHC mass conc (RBC) 35.2 G/GL Normal 32-36 [employer] Work Phone: [phone] MCV 84.5 fL Normal 80-94 [employer] Work Phone: [phone] MCV Entitic volume (RBC) 84.5 fL Normal 80-94 [facility] Work Phone: [phone] Platelet mean volume Entitic volume (Bld) 11.5 fL Normal 6.2-12.0 [facility] Work Phone: [phone] Platelets 123 10*3/mm3 Low 150-450 [facility] Work Phone: [phone] Platelets #/vol (Bld) 123 10*3/mm3 Low 150-450 [facility] Work Phone: [phone] PMV by Gil 11.5 fL Normal 6.2-12.0 [facility] Work Phone: [phone] RBC #/vol (Bld) 5.61 10*6/uL Normal 4.6-6.2 [employer] Work Phone: [phone] WBC #/vol (Bld) 6.4 10*3/uL Normal 4.4-11.0 [facility] Work Phone: [phone] WBC (Leukocytes) 6.4 10*3/uL Normal 4.4-11.0 [employer] Work Phone: [phone] Lab Report: PTon 12-04-2013 INR Coag RelTime (PPP) 1.6 {INR} Normal [employer] Work Phone: [phone] INR in blood by coagulation 1.6 {INR} Normal [employer] Work Phone: [phone] prothrombin time, actual/normal, ratio 18.2 SECONDS High 11.9-14.4 [employer] Work Phone: [phone] PTP 18.2 SECONDS High 11.9-14.4 [employer] Work Phone: [phone] Replaced Document: Alexa ROCA Observationson 10-30-2013 Pulse (Heart Rate) 396 ms Invalid Interpretation Code [employer] Work Phone: [phone] Lab Report: Ordered by Dr. Nik alfaro 09-20-2012 Erythrocyte distribution width Ratio (RBC) 13.4 % [employer] Work Phone: [phone] MCHC 35.5 % Invalid Interpretation Code [facility] Work Phone: [phone] MCHC mass conc (RBC) 35.5 % [facility] Work Phone: [phone] RDW-CA 13.4 % Invalid Interpretation Code [facility] Work Phone: [phone] Lab Report: PTTon 09-03-2012 aPTT Coag time (Bld) 28.8 s Normal 24.1-36.[address] [facility] [address] [facility] Work Phone: [phone] Office Visiton 07-18-2012 Alcoholism counseling (procedure) no Invalid Interpretation Code [facility] Work Phone: [phone] Protein mass conc no [facility] Work Phone: [phone] Vital Signs Date Time Vital Sign Value Performing Clinician Darren campoverde 12-31-2024 08:48-0400 Body height 193 cm Yesica Bacon REMOTE BROADCAST TECHNICIAN.CANDLE MOLDER Work Phone: [facility] 12-31-2024 08:48-0400 Body mass index (BMI) [Ratio] 39.58 kg/m2 Yesica Mendiolair REMOTE BROADCAST TECHNICIAN.CANDLE MOLDER Work Phone: [facility] 12-31-2024 08:48-0400 Body temperature 97.59 [degF] Yesica Meliton REMOTE BROADCAST TECHNICIAN.CANDLE MOLDER Work Phone: [facility] 12-31-2024 08:48-0400 Body weight 147.42 kg Yesica Mendiolair REMOTE BROADCAST TECHNICIAN.CANDLE MOLDER Work Phone: [facility] 12-31-2024 08:48-0400 Diastolic blood pressure 83 mm[Hg] Yesica Meliton REMOTE BROADCAST TECHNICIAN.CANDLE MOLDER Work Phone: [facility] 12-31-2024 08:48-0400 Heart rate 79 /min Yesica Mendiolair REMOTE BROADCAST TECHNICIAN.CANDLE MOLDER Work Phone: [facility] 12-31-2024 08:48-0400 SaO2% (BldA) [Mass fraction] 99 % Yesica Mendiolair REMOTE BROADCAST TECHNICIAN.CANDLE MOLDER Work Phone: [facility] 12-31-2024 08:48-0400 Systolic blood pressure 141 mm[Hg] Yesica Bacon [place] Work Phone: [facility] 12-24-2024 13:56-0400 Body mass index (BMI) [Ratio] 38.54 kg/m2 Jagjit Cheema MD Work Phone: [facility] 12-24-2024 13:56-0400 Body weight 147.42 kg Jagjit Cheema MD Work Phone: [facility] 12-24-2024 13:56-0400 Diastolic blood pressure 72 mm[Hg] Jagjit Cheema MD Work Phone: [facility] 12-24-2024 13:56-0400 Heart rate 86 /min Jagjit Cheema MD Work Phone: [facility] 12-24-2024 13:56-0400 SaO2% (BldA) [Mass fraction] 97 % Jagjit Cheema MD Work Phone: [facility] 12-24-2024 13:56-0400 Systolic blood pressure 140 mm[Hg] Jagjit Cheema MD Work Phone: [facility] 11-28-2024 10:11-0400 Body height 195.[address] Jagjit Cheema MD Work Phone: [facility] 11-28-2024 10:11-0400 Body mass index (BMI) [Ratio] 39.4 kg/m2 Dr. Jagjit Cheema MD Work Phone: [facility] 11-28-2024 10:11-0400 Body weight 151.[address] Jagjit Cheema MD Work Phone: [facility] 11-28-2024 10:11-0400 Diastolic blood pressure 91 mm[Hg] Dr. Jagjit Cheema MD Work Phone: [facility] 11-28-2024 10:11-0400 Heart rate 69 /min Dr. Jagjit Cheema MD Work Phone: [facility] 11-28-2024 10:11-0400 Respiratory rate 18 /min Dr. Jagjit Cheema MD Work Phone: [phone] [place] [address] 11-28-2024 10:11-0400 Systolic blood pressure 167 mm[Hg] Dr. Jagjit Cheema MD Work Phone: [phone] [place] [address] 11-20-2024 14:20-0400 Body temperature 97.9 [degF] Dr. Jagjit Cheema MD Work Phone: [phone] [place] [address] 11-20-2024 14:20-0400 Diastolic blood pressure 88 mm[Hg] Dr. Jagjit Cheema MD Work Phone: [phone] [place] [address] 11-20-2024 14:20-0400 Heart rate 75 /min Dr. Jagjit Cheema MD Work Phone: 9(310)112-140929 [place] [address] 11-20-2024 14:20-0400 Respiratory rate 16 /min Dr. Jagjit Cheema MD Work Phone: 9(572)850-625529 [place] [address] 11-20-2024 14:20-0400 SaO2% (BldA) [Mass fraction] 97 % Dr. Jagjit Cheema MD Work Phone: 7(826)655-109229 [place] [address] 11-20-2024 14:20-0400 Systolic blood pressure 146 mm[Hg] Dr. Jagjit Cheema MD Work Phone: 1(866)679-774429 [place] [address] 11-20-2024 10:26-0400 Body height 195.[address] Jagjit Cheema MD Work Phone: 3(268)886-192729 [place] [address] 11-20-2024 10:26-0400 Body mass index (BMI) [Ratio] 40.1 kg/m2 Dr. Jagjit Cheema MD Work Phone: 6(334)084-367729 [place] [address] 11-20-2024 10:26-0400 Body weight 153.[address] Jagjit Cheema MD Work Phone: 9(530)320-791229 [place] [address] 11-18-2024 11:23-0400 Body temperature 99.19 [degF] Susan Kerr APRN.CANDLE MOLDER Work Phone: 6(658)807-463770 [place] [address] 11-18-2024 11:23-0400 Diastolic blood pressure 80 mm[Hg] Susan Kerr APRN.CANDLE MOLDER Work Phone: 0(959)082-405370 [place] [address] 11-18-2024 11:23-0400 Heart rate 72 /min Susan Haagen REMOTE BROADCAST TECHNICIAN.CANDLE MOLDER Work Phone: [facility] 11-18-2024 11:23-0400 Respiratory rate 16 /min Susan Kerr REMOTE BROADCAST TECHNICIAN.CANDLE MOLDER Work Phone: [facility] 11-18-2024 11:23-0400 SaO2% (BldA) [Mass fraction] 95 % Susan Haagen REMOTE BROADCAST TECHNICIAN.CANDLE MOLDER Work Phone: [facility] 11-18-2024 11:23-0400 Systolic blood pressure 158 mm[Hg] Susan Haagen REMOTE BROADCAST TECHNICIAN.CANDLE MOLDER Work Phone: [facility] 10-28-2024 13:21-0400 Body temperature 97 [degF] Dr. Jagjit Cheema MD Work Phone: 4(298)317-781593 [place] [address] 10-28-2024 13:21-0400 Diastolic blood pressure 83 mm[Hg] Dr. Jagjit Cheema MD Work Phone: 0(190)756-526793 [place] [address] 10-28-2024 13:21-0400 Heart rate 66 /min Dr. Jagjit Cheema MD Work Phone: 5(255)336-691093 [place] [address] 10-28-2024 13:21-0400 Respiratory rate 24 /min Dr. Jagjit Cheema MD Work Phone: 7(515)897-959393 [place] [address] 10-28-2024 13:21-0400 SaO2% (BldA) [Mass fraction] 97 % Dr. Jagjit Cheema MD Work Phone: 5(329)693-149593 [place] [address] 10-28-2024 13:21-0400 Systolic blood pressure 156 mm[Hg] Dr. Jagjit Cheema MD Work Phone: 9(644)375-304993 [place] [address] 10-28-2024 09:36-0400 Body height 195.[address] Jagjit Cheema MD Work Phone: 8(791)007-227793 [place] [address] 10-28-2024 09:36-0400 Body mass index (BMI) [Ratio] 40.4 kg/m2 Dr. Jagjit Cheema MD Work Phone: 8(483)448-675893 [place] [address] 10-28-2024 09:36-0400 Body weight 154.[address] Jagjit Cheema MD Work Phone: [facility] 10-21-2024 09:24-0400 Diastolic blood pressure 70 mm[Hg] Jagjit Cheema MD Work Phone: [facility] 10-21-2024 09:24-0400 Systolic blood pressure 138 mm[Hg] Jagjit Cheema MD Work Phone: [facility] 10-21-2024 08:41-0400 Body height 195.6 cm Jagjit Cheema MD Work Phone: [facility] 10-21-2024 08:41-0400 Body mass index (BMI) [Ratio] 39.73 kg/m2 Jagjit Cheema MD Work Phone: [facility] 10-21-2024 08:41-0400 Body weight 151.96 kg Jagjit Cheema MD Work Phone: [facility] 10-21-2024 08:41-0400 Heart rate 78 /min Jagjit Cheema MD Work Phone: [facility] 10-21-2024 08:41-0400 SaO2% (BldA) [Mass fraction] 98 % Jagjit Cheema MD Work Phone: [facility] 09-23-2024 09:40-0400 Body mass index (BMI) [Ratio] 39.73 kg/m2 Jagjit Cheema MD Work Phone: [facility] 09-23-2024 09:40-0400 Body weight 151.96 kg Jagjit Cheema MD Work Phone: [facility] 09-23-2024 09:40-0400 Diastolic blood pressure 78 mm[Hg] Jagjit Cheema MD Work Phone: [facility] 09-23-2024 09:40-0400 Heart rate 82 /min Jagjit Cheema MD Work Phone: [facility] 09-23-2024 09:40-0400 SaO2% (BldA) [Mass fraction] 97 % Jagjit Cheema MD Work Phone: [facility] 09-23-2024 09:40-0400 Systolic blood pressure 170 mm[Hg] Jagjit Cheema MD Work Phone: [facility] 09-11-2024 08:25-0400 Body height 195.6 cm Jagjit Cheema MD Work Phone: [facility] 09-11-2024 08:25-0400 Body mass index (BMI) [Ratio] 39.73 kg/m2 Jagjit Cheema MD Work Phone: [facility] 09-11-2024 08:25-0400 Body weight 151.96 kg Jagjit Cheema MD Work Phone: [facility] 09-11-2024 08:25-0400 Diastolic blood pressure 70 mm[Hg] Jagjit Cheema MD Work Phone: [facility] 09-11-2024 08:25-0400 Heart rate 77 /min Jagjit Cheema MD Work Phone: [facility] 09-11-2024 08:25-0400 SaO2% (BldA) [Mass fraction] 99 % Jagjit Cheema MD Work Phone: [facility] 09-11-2024 08:25-0400 Systolic blood pressure 148 mm[Hg] Jagjit Cheema MD Work Phone: [facility] 08-16-2024 10:33-0500 Body mass index (BMI) [Ratio] 39.1 kg/m2 Dr. Jagjit Cheema MD Work Phone: [facility] 08-16-2024 10:33-0500 Body weight 149.[address] Jagjit Cheema MD Work Phone: [facility] 08-16-2024 10:33-0500 Diastolic blood pressure 84 mm[Hg] Dr. Jagjit Cheema MD Work Phone: [facility] 08-16-2024 10:33-0500 Heart rate 72 /min Dr. Jagjit Cheema MD Work Phone: [facility] 08-16-2024 10:33-0500 Respiratory rate 16 /min Dr. Jagjit Cheema MD Work Phone: [facility] 08-16-2024 10:33-0500 Systolic blood pressure 148 mm[Hg] Dr. Jagjit Cheema MD Work Phone: [facility] 07-08-2024 09:34-0500 Diastolic blood pressure 80 mm[Hg] Jagjit Cheema MD Work Phone: [facility] 07-08-2024 09:34-0500 Systolic blood pressure 136 mm[Hg] Jagjit Cheema MD Work Phone: [facility] 07-08-2024 09:06-0500 Body height 195.6 cm Jagjit Cheema MD Work Phone: [facility] 07-08-2024 09:06-0500 Body mass index (BMI) [Ratio] 39.13 kg/m2 Jagjit Cheema MD Work Phone: [facility] 07-08-2024 09:06-0500 Body weight 149.69 kg Jagjit Cheema MD Work Phone: [facility] 07-08-2024 09:06-0500 Heart rate 87 /min Jagjit Cheema MD Work Phone: [facility] 06-24-2024 09:03-0500 Body mass index (BMI) [Ratio] 39.13 kg/m2 Jagjit Cheema MD Work Phone: [facility] 06-24-2024 09:03-0500 Body temperature 97.2 [degF] Jagjit Cheema MD Work Phone: [facility] 06-24-2024 09:03-0500 Body weight 149.69 kg Jagjit Cheema MD Work Phone: [facility] 06-24-2024 09:03-0500 Diastolic blood pressure 72 mm[Hg] Jagjit Cheema MD Work Phone: [facility] 06-24-2024 09:03-0500 Heart rate 88 /min Jagjit Cheema MD Work Phone: [facility] 06-24-2024 09:03-0500 SaO2% (BldA) [Mass fraction] 98 % Jagjit Cheema MD Work Phone: [facility] 06-24-2024 09:03-0500 Systolic blood pressure 140 mm[Hg] Jagjit Cheema MD Work Phone: [facility] 06-17-2024 14:22-0500 Body mass index (BMI) [Ratio] 39.73 kg/m2 Jagjit Cheema MD Work Phone: [facility] 06-17-2024 14:22-0500 Body temperature 100.09 [degF] Jagjit Cheema MD Work Phone: [facility] 06-17-2024 14:22-0500 Body weight 151.96 kg Jagjit Cheema MD Work Phone: [facility] 06-17-2024 14:22-0500 Diastolic blood pressure 92 mm[Hg] Jagjit Cheema MD Work Phone: [facility] 06-17-2024 14:22-0500 Heart rate 79 /min Jagjit Cheema MD Work Phone: [facility] 06-17-2024 14:22-0500 SaO2% (BldA) [Mass fraction] 99 % Jagjit Cheema MD Work Phone: [facility] 06-17-2024 14:22-0500 Systolic blood pressure 152 mm[Hg] Jagjit Cheema MD Work Phone: [facility] 06-13-2024 15:51-0500 Body mass index (BMI) [Ratio] 40.02 kg/m2 Carolann Lucas APRN.CANDLE MOLDER Work Phone: [facility] 06-13-2024 15:51-0500 Body temperature 97.7 [degF] Carolann Lucas REMOTE BROADCAST TECHNICIAN.CANDLE MOLDER Work Phone: [facility] 06-13-2024 15:51-0500 Body weight 153.1 kg Carolann Lucas REMOTE BROADCAST TECHNICIAN.CANDLE MOLDER Work Phone: [facility] 06-13-2024 15:51-0500 Diastolic blood pressure 74 mm[Hg] Carolann Lucas REMOTE BROADCAST TECHNICIAN.CANDLE MOLDER Work Phone: [facility] 06-13-2024 15:51-0500 Heart rate 90 /min Carolann Lance REMOTE BROADCAST TECHNICIAN.CANDLE MOLDER Work Phone: [facility] 06-13-2024 15:51-0500 Respiratory rate 16 /min Carolann Lance REMOTE BROADCAST TECHNICIAN.CANDLE MOLDER Work Phone: [facility] 06-13-2024 15:51-0500 SaO2% (BldA) [Mass fraction] 97 % Carolann Lance REMOTE BROADCAST TECHNICIAN.CANDLE MOLDER Work Phone: [facility] 06-13-2024 15:51-0500 Systolic blood pressure 136 mm[Hg] Carolann Lance REMOTE BROADCAST TECHNICIAN.CANDLE MOLDER Work Phone: [facility] 04-25-2024 13:18-0500 Body mass index (BMI) [Ratio] 39.48 kg/m2 Lisa Podlogar REMOTE BROADCAST TECHNICIAN.CANDLE MOLDER Work Phone: [facility] 04-25-2024 13:18-0500 Body weight 151 kg Lisa Podlogar REMOTE BROADCAST TECHNICIAN.CANDLE MOLDER Work Phone: [facility] 04-25-2024 13:18-0500 Diastolic blood pressure 78 mm[Hg] Lisa Podlogar REMOTE BROADCAST TECHNICIAN.CANDLE MOLDER Work Phone: [facility] 04-25-2024 13:18-0500 Heart rate 78 /min Lisa Podlogar REMOTE BROADCAST TECHNICIAN.CANDLE MOLDER Work Phone: [facility] 04-25-2024 13:18-0500 SaO2% (BldA) [Mass fraction] 97 % Lisa Podlogar REMOTE BROADCAST TECHNICIAN.CANDLE MOLDER Work Phone: [facility] 04-25-2024 13:18-0500 Systolic blood pressure 140 mm[Hg] Lisa Podlogar REMOTE BROADCAST TECHNICIAN.CANDLE MOLDER Work Phone: [facility] 04-10-2024 11:23-0400 Body mass index (BMI) [Ratio] 38.99 kg/m2 Rojas Dominguez MD Work Phone: [facility] 04-10-2024 11:23-0400 Body temperature 97.7 [degF] Rojas Dominguez MD Work Phone: [facility] 04-10-2024 11:23-0400 Body weight 149.14 kg Rojas Dominguez MD Work Phone: [facility] 04-10-2024 11:23-0400 Diastolic blood pressure 72 mm[Hg] Rojas Dominguez MD Work Phone: [facility] 04-10-2024 11:23-0400 Heart rate 73 /min Rojas Dominguez MD Work Phone: [facility] 04-10-2024 11:23-0400 Respiratory rate 18 /min Rojas Dominguez MD Work Phone: [facility] 04-10-2024 11:23-0400 SaO2% (BldA) [Mass fraction] 98 % Rojas Dominguez MD Work Phone: [facility] 04-10-2024 11:23-0400 Systolic blood pressure 130 mm[Hg] Rojas Dominguez MD Work Phone: [facility] 03-13-2024 09:03-0400 Body mass index (BMI) [Ratio] 39.01 kg/m2 Jagjit Cheema MD Work Phone: [facility] 03-13-2024 09:03-0400 Body weight 149.23 kg Jagjit Cheema MD Work Phone: [facility] 03-13-2024 09:03-0400 Diastolic blood pressure 72 mm[Hg] Jagjit Cheema MD Work Phone: [facility] 03-13-2024 09:03-0400 Heart rate 71 /min Jagjit Cheema MD Work Phone: [facility] 03-13-2024 09:03-0400 SaO2% (BldA) [Mass fraction] 98 % Jagjit Cheema MD Work Phone: [facility] 03-13-2024 09:03-0400 Systolic blood pressure 134 mm[Hg] Jagjit Cheema MD Work Phone: [facility] 03-08-2024 09:43-0400 Body mass index (BMI) [Ratio] 38.69 kg/m2 Jagjit Cheema MD Work Phone: [facility] 03-08-2024 09:43-0400 Body temperature 99.1 [degF] Jagjit Cheema MD Work Phone: [facility] 03-08-2024 09:43-0400 Body weight 148 kg Jagjit Cheema MD Work Phone: [facility] 03-08-2024 09:43-0400 Diastolic blood pressure 82 mm[Hg] Jagjit Cheema MD Work Phone: [facility] 03-08-2024 09:43-0400 Heart rate 77 /min Jagjit Cheema MD Work Phone: [facility] 03-08-2024 09:43-0400 SaO2% (BldA) [Mass fraction] 96 % Jagjit Cheema MD Work Phone: [facility] 03-08-2024 09:43-0400 Systolic blood pressure 148 mm[Hg] Jagjit Cheema MD Work Phone: [facility] 12-29-2023 08:00-0400 Body height 195.6 cm Jagjit Cheema MD Work Phone: [facility] 12-29-2023 08:00-0400 Body mass index (BMI) [Ratio] 38.9 kg/m2 Jagjit Cheema MD Work Phone: [facility] 12-29-2023 08:00-0400 Body weight 148.78 kg Jagjit Cheema MD Work Phone: [facility] 12-29-2023 08:00-0400 Diastolic blood pressure 78 mm[Hg] Jagjit Cheema MD Work Phone: [facility] 12-29-2023 08:00-0400 Heart rate 79 /min Jagjit Cheema MD Work Phone: [facility] 12-29-2023 08:00-0400 SaO2% (BldA) [Mass fraction] 97 % Jagjit Cheema MD Work Phone: [facility] 12-29-2023 08:00-0400 Systolic blood pressure 176 mm[Hg] Jagjit Cheema MD Work Phone: [facility] 12-13-2023 09:30-0400 Body temperature 98.71 [degF] Susan Haagen REMOTE BROADCAST TECHNICIAN.CANDLE MOLDER Work Phone: [facility] 12-13-2023 09:30-0400 Diastolic blood pressure 86 mm[Hg] Susan Haagen REMOTE BROADCAST TECHNICIAN.CANDLE MOLDER Work Phone: [facility] 12-13-2023 09:30-0400 Heart rate 64 /min Susan Hadeloris REMOTE BROADCAST TECHNICIAN.CANDLE MOLDER Work Phone: [facility] 12-13-2023 09:30-0400 Respiratory rate 16 /min Susan Kerr REMOTE BROADCAST TECHNICIAN.CANDLE MOLDER Work Phone: [facility] 12-13-2023 09:30-0400 SaO2% (BldA) [Mass fraction] 97 % Susan Kerr REMOTE BROADCAST TECHNICIAN.CANDLE MOLDER Work Phone: [facility] 12-13-2023 09:30-0400 Systolic blood pressure 140 mm[Hg] Susan Haagen REMOTE BROADCAST TECHNICIAN.CANDLE MOLDER Work Phone: [facility] 11-29-2023 14:10-0400 Diastolic blood pressure 84 mm[Hg] Jagjit Cheema MD Work Phone: [facility] 11-29-2023 14:10-0400 Systolic blood pressure 136 mm[Hg] Jagjit Cheema MD Work Phone: [facility] 11-29-2023 13:56-0400 Body mass index (BMI) [Ratio] 38.66 kg/m2 Jagjit Cheema MD Work Phone: [facility] 11-29-2023 13:56-0400 Body weight 147.87 kg Jagjit Cheema MD Work Phone: [facility] 11-29-2023 13:56-0400 Heart rate 78 /min Jagjit Cheema MD Work Phone: [facility] 11-29-2023 13:56-0400 SaO2% (BldA) [Mass fraction] 98 % Jagjit Cheema MD Work Phone: [facility] 10-16-2023 14:28-0400 Body height 195.[address] Jagjit Cheema Work Phone: [facility] 10-16-2023 14:28-0400 Body mass index (BMI) [Ratio] 39.2 kg/m2 Dr. Jagjit Cheema Work Phone: [facility] 10-16-2023 14:28-0400 Body weight 150.[address] Jagjit Cheema Work Phone: [facility] 10-16-2023 14:28-0400 Diastolic blood pressure 71 mm[Hg] Dr. Jagjit Cheema Work Phone: [facility] 10-16-2023 14:28-0400 Heart rate 66 /min Dr. Jagjit Cheema Work Phone: [facility] 10-16-2023 14:28-0400 Respiratory rate 16 /min Dr. Jagjit Cheema Work Phone: [facility] 10-16-2023 14:28-0400 Systolic blood pressure 147 mm[Hg] Dr. Jagjit Cheema Work Phone: [facility] 09-05-2023 16:04-0400 Body height 195.6 cm Jagjit Cheema MD Work Phone: [facility] 09-05-2023 16:04-0400 Body weight 151.05 kg Jagjit Cheema MD Work Phone: [facility] 09-05-2023 16:04-0400 Diastolic blood pressure 68 mm[Hg] Jagjit Cheema MD Work Phone: [facility] 09-05-2023 16:04-0400 Heart rate 72 /min Jagjit Cheema MD Work Phone: [facility] 09-05-2023 16:04-0400 SaO2% (BldA) [Mass fraction] 96 % Jagjit Cheema MD Work Phone: [facility] 09-05-2023 16:04-0400 Systolic blood pressure 138 mm[Hg] Jagjit Cheema MD Work Phone: [facility] 07-05-2023 13:02-0500 Body height 195.[address] Jagjit Cheema Work Phone: [facility] 07-05-2023 13:02-0500 Body mass index (BMI) [Ratio] 40.4 kg/m2 Dr. Jagjit Cheema Work Phone: [facility] 07-05-2023 13:02-0500 Body weight 154.[address] Jagjit Cheema Work Phone: [facility] 07-05-2023 13:02-0500 Diastolic blood pressure 71 mm[Hg] Dr. Jagjit Cheema Work Phone: [facility] 07-05-2023 13:02-0500 Heart rate 70 /min Dr. Jagjit Cheema Work Phone: [facility] 07-05-2023 13:02-0500 Respiratory rate 18 /min Dr. Jagjit Cheema Work Phone: [facility] 07-05-2023 13:02-0500 Systolic blood pressure 145 mm[Hg] Dr. Jagjit Cheema Work Phone: [facility] 01-23-2023 17:22-0400 Diastolic blood pressure 70 mm[Hg] Jagjit Cheema MD Work Phone: [facility] 01-23-2023 17:22-0400 Systolic blood pressure 138 mm[Hg] Jagjit Cheema MD Work Phone: [facility] 01-23-2023 16:52-0400 Body height 195.6 cm Jagjit Cheema MD Work Phone: [facility] 01-23-2023 16:52-0400 Body weight 148.96 kg Jagjit Cheema MD Work Phone: [facility] 01-23-2023 16:52-0400 Heart rate 64 /min Jagjit Cheema MD Work Phone: [facility] 01-23-2023 16:52-0400 SaO2% (BldA) [Mass fraction] 97 % Jagjit Cheema MD Work Phone: [facility] 12-19-2022 15:34-0400 Body height 195.6 cm Jagjit Cheema MD Work Phone: [facility] 12-19-2022 15:34-0400 Body weight 149.41 kg Jagjit Cheema MD Work Phone: [facility] 12-19-2022 15:34-0400 Diastolic blood pressure 68 mm[Hg] Jagjit Cheema MD Work Phone: [facility] 12-19-2022 15:34-0400 Heart rate 64 /min Jagjit Cheema MD Work Phone: [facility] 12-19-2022 15:34-0400 SaO2% (BldA) [Mass fraction] 97 % Jagjit Cheema MD Work Phone: [facility] 12-19-2022 15:34-0400 Systolic blood pressure 138 mm[Hg] Jagjit Cheema MD Work Phone: [facility] 12-16-2022 12:54-0400 Body temperature 98.2 [degF] Dr. Jagjit Cheema Work Phone: [facility] 12-16-2022 12:54-0400 Diastolic blood pressure 68 mm[Hg] Dr. Jagjit Cheema Work Phone: [facility] 12-16-2022 12:54-0400 Heart rate 68 /min Dr. Jagjit Cheema Work Phone: [facility] 12-16-2022 12:54-0400 Respiratory rate 18 /min Dr. Jagjit Cheema Work Phone: [facility] 12-16-2022 12:54-0400 SaO2% (BldA) [Mass fraction] 100 % Dr. Jagjit Cheema Work Phone: [facility] 12-16-2022 12:54-0400 Systolic blood pressure 131 mm[Hg] Dr. Jagjit Cheema Work Phone: 6(168)506-645693 [place] [address] 12-16-2022 06:00-0400 Body mass index (BMI) [Ratio] 38.2 kg/m2 Dr. Jagjit Cheema Work Phone: 0(590)494-076193 [place] [address] 12-16-2022 06:00-0400 Body weight 146.[address] Jagjit Cheema Work Phone: 4(948)401-630829 [place] [address] 12-15-2022 23:33-0400 Body height 195.[address] Jagjit Cheema Work Phone: 2(465)187-844829 [place] [address] 12-15-2022 23:00-0400 Body temperature 100.3 [degF] Dr. Jagjit Cheema Work Phone: 5(897)377-393429 [place] [address] 12-15-2022 23:00-0400 Diastolic blood pressure 68 mm[Hg] Dr. Jagjit Cheema Work Phone: 8(835)072-025629 [place] [address] 12-15-2022 23:00-0400 Heart rate 89 /min Dr. Jagjit Cheema Work Phone: 5(536)927-293393 [place] [address] 12-15-2022 23:00-0400 Respiratory rate 20 /min Dr. Jagjit Cheema Work Phone: 1(812)414-971529 [place] [address] 12-15-2022 23:00-0400 SaO2% (BldA) [Mass fraction] 97 % Dr. Jagjit Cheema Work Phone: 4(864)201-997529 [place] [address] 12-15-2022 23:00-0400 Systolic blood pressure 136 mm[Hg] Dr. Jagjit Cheema Work Phone: 1(938)364-222729 [place] [address] 12-15-2022 18:54-0400 Body height 195.[address] Jagjit Cheema Work Phone: 0(165)735-766929 [place] [address] 12-15-2022 18:54-0400 Body mass index (BMI) [Ratio] 38.8 kg/m2 Dr. Jagjit Cheema Work Phone: 0(686)042-978629 [place] [address] 12-15-2022 18:54-0400 Body weight 148.[address] Jagjit Cheema Work Phone: 4(870)529-105729 [place] [address] 12-14-2022 20:51-0400 Body temperature 98.4 [degF] Dr. Jagjit Cheema Work Phone: [facility] 12-14-2022 20:51-0400 Diastolic blood pressure 70 mm[Hg] Dr. Jagjit Cheema Work Phone: [facility] 12-14-2022 20:51-0400 Heart rate 78 /min Dr. Jagjit Cheema Work Phone: [facility] 12-14-2022 20:51-0400 Respiratory rate 16 /min Dr. Jagjit Cheema Work Phone: [facility] 12-14-2022 20:51-0400 SaO2% (BldA) [Mass fraction] 97 % Dr. Jagjit Cheema Work Phone: [facility] 12-14-2022 20:51-0400 Systolic blood pressure 136 mm[Hg] Dr. Jagjit Cheema Work Phone: [facility] 12-14-2022 16:47-0400 Body mass index (BMI) [Ratio] 38 kg/m2 Dr. Jagjit Cheema Work Phone: [facility] 12-14-2022 16:47-0400 Body weight 145.[address] Jagjit Cheema Work Phone: [facility] 12-14-2022 16:17-0400 Body temperature 100.9 [degF] Jagjit Cheema MD Work Phone: [facility] 12-14-2022 16:17-0400 Body weight 145.69 kg Jagjit Cheema MD Work Phone: [facility] 12-14-2022 16:17-0400 Diastolic blood pressure 60 mm[Hg] Jagjit Cheema MD Work Phone: [facility] 12-14-2022 16:17-0400 Heart rate 80 /min Jagjit Cheema MD Work Phone: [facility] 12-14-2022 16:17-0400 SaO2% (BldA) [Mass fraction] 99 % Jagjit Cheema MD Work Phone: [facility] 12-14-2022 16:17-0400 Systolic blood pressure 130 mm[Hg] Jagjit Cheema MD Work Phone: [facility] 11-07-2022 10:11-0400 Diastolic blood pressure 78 mm[Hg] Dr. Jagjit Cheema Work Phone: [facility] 11-07-2022 10:11-0400 Systolic blood pressure 140 mm[Hg] Dr. Jagjit Cheema Work Phone: [facility] 11-07-2022 09:48-0400 Body mass index (BMI) [Ratio] 38.3 kg/m2 Dr. Jagjit Cheema Work Phone: [facility] 11-07-2022 09:48-0400 Body weight 146.[address] Jagjit Cheema Work Phone: [facility] 11-07-2022 09:48-0400 Heart rate 74 /min Dr. Jagjit Cheema Work Phone: [facility] 11-07-2022 09:48-0400 Respiratory rate 16 /min Dr. Jagjit Cheema Work Phone: [facility] 10-25-2022 14:54-0400 Diastolic blood pressure 66 mm[Hg] Jagjit Cheema MD Work Phone: [facility] 10-25-2022 14:54-0400 Systolic blood pressure 130 mm[Hg] Jagjit Cheema MD Work Phone: [facility] 10-25-2022 14:29-0400 Body height 195.6 cm Jagjit Cheema MD Work Phone: [facility] 10-25-2022 14:29-0400 Body weight 147.42 kg Jagjit Cheema MD Work Phone: [facility] 10-25-2022 14:29-0400 Heart rate 78 /min Jagjit Cheema MD Work Phone: [facility] 10-25-2022 14:29-0400 SaO2% (BldA) [Mass fraction] 98 % Jagjit Cheema MD Work Phone: [facility] 09-22-2022 16:16-0400 Body temperature 98.49 [degF] Jagjit Cheema MD Work Phone: [facility] 09-22-2022 16:16-0400 Body weight 150.14 kg Jagjit Cheema MD Work Phone: [facility] 09-22-2022 16:16-0400 Diastolic blood pressure 62 mm[Hg] Jagjit Cheema MD Work Phone: [facility] 09-22-2022 16:16-0400 Heart rate 72 /min Jagjit Cheema MD Work Phone: [facility] 09-22-2022 16:16-0400 SaO2% (BldA) [Mass fraction] 97 % Jagjit Cheema MD Work Phone: [facility] 09-22-2022 16:16-0400 Systolic blood pressure 146 mm[Hg] Jagjit Cheema MD Work Phone: [facility] 08-09-2022 11:17-0500 Body height 195.[address] Jagjit Cheema Work Phone: [facility] 08-09-2022 11:17-0500 Body weight 149.[address] Jagjit Cheema Work Phone: [facility] 08-08-2022 11:05-0500 Body mass index (BMI) [Ratio] 39.1 kg/m2 Dr. Jagjit Cheema Work Phone: [facility] 08-03-2022 08:26-0500 Body mass index (BMI) [Ratio] 39.1 kg/m2 Dr. Jagjit Cheema Work Phone: [facility] 08-03-2022 08:26-0500 Body weight 149.[address] Jagjit Cheema Work Phone: [facility] 08-03-2022 08:26-0500 Diastolic blood pressure 76 mm[Hg] Dr. Jagjit Cheema Work Phone: [facility] 08-03-2022 08:26-0500 Heart rate 65 /min Dr. Jagjit Cheema Work Phone: 0(204)054-103493 [place] [address] 08-03-2022 08:26-0500 Respiratory rate 18 /min Dr. Jagjit Cheema Work Phone: 1(711)991-637829 [place] [address] 08-03-2022 08:26-0500 SaO2% (BldA) [Mass fraction] 98 % Dr. Jagjit Cheema Work Phone: 5(853)771-451229 [place] [address] 08-03-2022 08:26-0500 Systolic blood pressure 136 mm[Hg] Dr. Jagjit Cheema Work Phone: 9(934)220-631229 [place] [address] 06-16-2022 13:29-0500 Body height 195.[address] Jagjit Cheema Work Phone: 4(007)138-631829 [place] [address] Work Phone: 06-16-2022 13:29-0500 Body mass index (BMI) [Ratio] 38.6 kg/m2 Dr. Jagjit Cheema Work Phone: 1(054)617-534129 [place] [address] 06-16-2022 13:29-0500 Body weight 147.[address] Jagjit Cheema Work Phone: 5(660)897-343329 [place] [address] 06-16-2022 13:29-0500 Diastolic blood pressure 77 mm[Hg] Dr. Jagjit Cheema Work Phone: 9(451)837-084229 [place] [address] 06-16-2022 13:29-0500 Heart rate 67 /min Dr. Jagjit Cheema Work Phone: 2(590)347-437729 [place] [address] 06-16-2022 13:29-0500 Respiratory rate 20 /min Dr. Jagjit Cheema Work Phone: 3(163)565-469729 [place] [address] 06-16-2022 13:29-0500 SaO2% (BldA) [Mass fraction] 100 % Dr. Jagjit Cheema Work Phone: 7(958)818-464029 [place] [address] 06-16-2022 13:29-0500 Systolic blood pressure 147 mm[Hg] Dr. Jagjit Cheema Work Phone: 6(466)638-188729 [place] [address] 05-07-2022 14:37-0500 Diastolic blood pressure 94 mm[Hg] Dr. Jagjit Cheema Work Phone: 4(324)808-074493 [place] [address] 05-07-2022 14:37-0500 Heart rate 65 /min Dr. Jagjit Cheema Work Phone: 0(193)717-711029 [place] [address] 05-07-2022 14:37-0500 Respiratory rate 16 /min Dr. Jagjit Cheema Work Phone: 4(731)924-610529 [place] [address] 05-07-2022 14:37-0500 SaO2% (BldA) [Mass fraction] 97 % Dr. Jagjit Cheema Work Phone: 1(970)438-868229 [place] [address] 05-07-2022 14:37-0500 Systolic blood pressure 148 mm[Hg] Dr. Jagjit Cheema Work Phone: 8(926)795-238129 [place] [address] 05-07-2022 11:28-0500 Body height 195.[address] Jagjit Cheema Work Phone: 6(165)495-335429 [place] [address] Work Phone: 05-07-2022 11:28-0500 Body mass index (BMI) [Ratio] 39.1 kg/m2 Dr. Jagjit Cheema Work Phone: 3(445)302-123629 [place] [address] 05-07-2022 11:28-0500 Body temperature 97.8 [degF] Dr. Jagjit Cheema Work Phone: 4(088)060-846329 [place] [address] 05-07-2022 11:28-0500 Body weight 149.[address] Jagjit Cheema Work Phone: 4(968)265-274529 [place] [address] 04-29-2022 10:06-0500 Body height 195.[address] Jagjit Cheema Work Phone: 4(141)442-424829 [place] [address] Work Phone: 04-29-2022 10:06-0500 Body mass index (BMI) [Ratio] 38.2 kg/m2 Dr. Jagjit Cheema Work Phone: 2(269)608-471829 [place] [address] 04-29-2022 10:06-0500 Body weight 146.[address] Jagjit Cheema Work Phone: 9(560)782-844729 [place] [address] 04-29-2022 10:06-0500 Diastolic blood pressure 66 mm[Hg] Dr. Jagjit Cheema Work Phone: [facility] 04-29-2022 10:06-0500 Heart rate 92 /min Dr. Jagjit Cheema Work Phone: [facility] 04-29-2022 10:06-0500 Respiratory rate 16 /min Dr. Jagjit Cheema Work Phone: [facility] 04-29-2022 10:06-0500 Systolic blood pressure 140 mm[Hg] Dr. Jagjit Cheema Work Phone: [facility] 02-12-2022 14:28-0400 Diastolic blood pressure 77 mm[Hg] Dr. Jagjit Cheema Work Phone: [facility] Work Phone: 02-12-2022 14:28-0400 Heart rate 60 /min Dr. Jagjit Cheema Work Phone: [facility] Work Phone: 02-12-2022 14:28-0400 Respiratory rate 18 /min Dr. Jagjit Cheema Work Phone: [facility] Work Phone: 02-12-2022 14:28-0400 SaO2% (BldA) [Mass fraction] 100 % Dr. Jagjit Cheema Work Phone: [facility] Work Phone: 02-12-2022 14:28-0400 Systolic blood pressure 149 mm[Hg] Dr. Jagjit Cheema Work Phone: [facility] Work Phone: 02-12-2022 11:29-0400 Body height 195.[address] Jagjit Cheema Work Phone: [facility] Work Phone: 02-12-2022 11:29-0400 Body mass index (BMI) [Ratio] 38.5 kg/m2 Dr. Jagjit Cheema Work Phone: [facility] Work Phone: 02-12-2022 11:29-0400 Body temperature 98.2 [degF] Dr. Jagjit Cheema Work Phone: [facility] Work Phone: 02-12-2022 11:29-0400 Body weight 147.[address] Jagjit Cheema Work Phone: [facility] Work Phone: 02-12-2022 10:50-0400 Body temperature 98.2 [degF] Carolann Lance REMOTE BROADCAST TECHNICIAN.CANDLE MOLDER Work Phone: [facility] 02-12-2022 10:50-0400 Body weight 147.42 kg Carolann Lance REMOTE BROADCAST TECHNICIAN.CANDLE MOLDER Work Phone: [facility] 02-12-2022 10:50-0400 Diastolic blood pressure 80 mm[Hg] Carolann Lance REMOTE BROADCAST TECHNICIAN.CANDLE MOLDER Work Phone: [facility] 02-12-2022 10:50-0400 Heart rate 72 /min Carolann Lance REMOTE BROADCAST TECHNICIAN.CANDLE MOLDER Work Phone: [facility] 02-12-2022 10:50-0400 Respiratory rate 16 /min Carolann Lance REMOTE BROADCAST TECHNICIAN.CANDLE MOLDER Work Phone: [facility] 02-12-2022 10:50-0400 SaO2% (BldA) [Mass fraction] 98 % Carolann Lance REMOTE BROADCAST TECHNICIAN.CANDLE MOLDER Work Phone: [facility] 02-12-2022 10:50-0400 Systolic blood pressure 152 mm[Hg] Carolann Lance REMOTE BROADCAST TECHNICIAN.CANDLE MOLDER Work Phone: [facility] 11-23-2021 08:56-0400 Body height 195.[address] Jagjit Cheema Work Phone: [facility] Work Phone: 11-23-2021 08:56-0400 Body mass index (BMI) [Ratio] 38.5 kg/m2 Dr. Jagjit Cheema Work Phone: [facility] Work Phone: 11-23-2021 08:56-0400 Body weight 147.[address] Jagjit Cheema Work Phone: [facility] Work Phone: 11-23-2021 08:56-0400 Diastolic blood pressure 75 mm[Hg] Dr. Jagjit Cheema Work Phone: [facility] Work Phone: 11-23-2021 08:56-0400 Heart rate 65 /min Dr. Jagjit Cheema Work Phone: [facility] Work Phone: 11-23-2021 08:56-0400 Respiratory rate 18 /min Dr. Jagjit Cheema Work Phone: [facility] Work Phone: 11-23-2021 08:56-0400 Systolic blood pressure 152 mm[Hg] Dr. Jagjit Cheema Work Phone: [facility] Work Phone: 10-20-2021 08:31-0400 Body mass index (BMI) [Ratio] 38.9 kg/m2 Dr. Jagjit Cheema Work Phone: [facility] Work Phone: 10-20-2021 08:31-0400 Body weight 149.[address] Jagjit Cheema Work Phone: [facility] Work Phone: 10-20-2021 08:31-0400 Diastolic blood pressure 78 mm[Hg] Dr. Jagjit Cheema Work Phone: [facility] Work Phone: 10-20-2021 08:31-0400 Heart rate 68 /min Dr. Jagjit Cheema Work Phone: [facility] Work Phone: 10-20-2021 08:31-0400 Respiratory rate 12 /min Dr. Jagjit Cheema Work Phone: [facility] Work Phone: 10-20-2021 08:31-0400 Systolic blood pressure 142 mm[Hg] Dr. Jagjit Cheema Work Phone: [facility] Work Phone: 10-20-2021 08:31-0400 Body height 195.[address] Jagjit Cheema Work Phone: [facility] Work Phone: 10-20-2021 08:31-0400 Body mass index (BMI) [Ratio] 38.9 kg/m2 Dr. Jagjit Cheema Work Phone: [facility] Work Phone: 10-20-2021 08:31-0400 Body weight 149.[address] Jagjit Cheema Work Phone: [facility] Work Phone: 10-20-2021 08:31-0400 Diastolic blood pressure 78 mm[Hg] Dr. Jagjit Cheema Work Phone: [facility] Work Phone: 10-20-2021 08:31-0400 Heart rate 68 /min Dr. Jagjit Cheema Work Phone: [facility] Work Phone: 10-20-2021 08:31-0400 Respiratory rate 12 /min Dr. Jagjit Cheema Work Phone: [facility] Work Phone: 10-20-2021 08:31-0400 Systolic blood pressure 142 mm[Hg] Dr. Jagjit Cheema Work Phone: [facility] Work Phone: 10-14-2021 12:04-0400 Body temperature 97.7 [degF] Kisha Wen APRN.CANDLE MOLDER Work Phone: [facility] 10-14-2021 12:04-0400 Body weight 148.87 kg Kisha Wen APRN.CANDLE MOLDER Work Phone: [facility] 10-14-2021 12:04-0400 Diastolic blood pressure 82 mm[Hg] Kisha Wen APRN.CANDLE MOLDER Work Phone: [facility] 10-14-2021 12:04-0400 Heart rate 64 /min Kisha Wen APRN.CANDLE MOLDER Work Phone: [facility] 10-14-2021 12:04-0400 Respiratory rate 20 /min Kisha Wen APRN.CANDLE MOLDER Work Phone: [facility] 10-14-2021 12:04-0400 SaO2% (BldA) [Mass fraction] 99 % Kisha Wen APRN.CANDLE MOLDER Work Phone: [facility] 10-14-2021 12:04-0400 Systolic blood pressure 150 mm[Hg] Kisha Wen APRN.CANDLE MOLDER Work Phone: [facility] 12-14-2016 16:00-0400 BMI (Body Mass Index) 37.68 [...] ambulatory Jagjit Cheema MD Work Phone: [facility] [place] Comment on above: Colonoscopy Start: 01-07-2025 End: 01-07-2025 Admission to same day surgery center Richi Whitney MD Work Phone: Ambulatory Surgery Start: 01-07-2025 End: 01-07-2025 ambulatory Richi Whitney MD Work Phone: Ambulatory Surgery Start: 12-31-2024 End: 12-31-2024 Patient encounter procedure Yesica Bacon REMOTE BROADCAST TECHNICIAN.CANDLE MOLDER Work Phone: General Surgery Comment on above: Rectal bleeding Start: 12-31-2024 End: 12-31-2024 ambulatory YESICA BACON Facility:[facility] Start: 12-30-2024 End: 12-30-2024 Refill Jagjit Cheema MD Work Phone: [facility] [place] Comment on above: Refill Request Start: 12-24-2024 End: 12-24-2024 Patient encounter procedure Jagjit Cheema MD Work Phone: [facility] [place] Comment on above: Rectal bleeding (Minnie dionisio Dx); Hyperglycemia; Sleep apnea, unspecified type; 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; Class 2 obesity with body mass index (BMI) of 38.0 to 38.9 in adult, unspecified obesity type, unspecified whether serious comorbidity present; Attention deficit disorder, unspecified type Start: 12-24-2024 End: 12-24-2024 Telephone encounter Jagjit Cheema MD Work Phone: [facility] Comment on above: Pharmacy Call Start: 12-24-2024 End: 12-24-2024 ambulatory [facility] Facility:[facility] Start: 11-28-2024 End: 11-28-2024 Patient encounter procedure Hussein RUIZ -[facility] Work Phone: Start: 11-28-2024 End: 11-28-[address] Jagjit Cheema MD Work Phone: [facility] Work Phone: Start: 11-21-2024 ambulatory [facility] Facility:[facility] Start: 11-21-2024 Non-patient / Non-visit Dr. Lanette Haywood MD -[facility] Start: 11-21-2024 End: 11-21-[address] Jagjit Cheema MD Work Phone: [facility] Work Phone: Start: 11-21-2024 End: 11-21-[address] Karl Vo MD -Cardiovascular Services Work Phone: Start: 11-21-2024 End: 11-21-2024 ambulatory [facility] Start: 11-20-2024 End: 11-20-2024 Emergency department patient visit Dr. Jagjit Cheema MD Work Phone: -Emergency Department Work Phone: Start: 11-18-2024 End: 01-18-2025 Follow-up encounter Susan Kerr APRN.CANDLE MOLDER Work Phone: [facility] Start: 11-18-2024 End: 11-18-2024 Subsequent hospital visit by physician [facility] Work Phone: Radiology Comment on above: Acute cough [R05.1] Start: 11-18-2024 ambulatory [facility] Facility :[facility] Start: 11-18-2024 End: 11-18-2024 Office outpatient visit 25 minutes Susan Kerr APRN.CANDLE MOLDER Work Phone: [facility] Comment on above: Bronchitis (Primary Dx); SOB (shortness of breath); Acute cough Start: 11-18-2024 End: 11-18-2024 ambulatory [facility] Facility:[facility] Start: 10-28-2024 End: 10-28-2024 Emergency department patient visit Dr. Jagjit Cheema MD Work Phone: -Emergency Department Work Phone: Start: 10-28-2024 End: 10-28-2024 ambulatory Nurse Intm/Famp Triage [facility] Work Phone: Nurse Phone Triage Comment on above: Rectal Bleeding Start: 10-21-2024 End: 10-21-2024 Patient encounter procedure Jagjit Cheema MD Work Phone: [facility] [place] Comment on above: Attention deficit di sorder, unspecified type (Primary Dx); Anxiety with depression; Thrombocytopenia Start: 10-21-2024 End: 10-21-2024 ambulatory JAGJIT CHEEMA Facility:[facility] Start: 10-18-2024 End: 12-18-2024 Follow-up encounter Jagjit Cheema MD Work Phone: [facility] [place] Start: 10-18-2024 End: 10-18-2024 ambulatory [facility] Facility:[facility] Start: 10-16-2024 End: 10-16-2024 Refill Jagjit Cheema MD Work Phone: [facility] [place] Comment on above: Refill Request Start: 09-27-2024 End: 09-27-2024 Telephone encounter Jagjit Cheema MD Work Phone: [facility] [place] Comment on above: Medication Problem Start: 09-23-2024 End: 09-23-2024 ambulatory [facility] Facility:[facility] Start: 09-23-2024 End: 09-23-2024 Patient encounter procedure Jagjit Cheema MD Work Phone: [facility] [place] Comment on above: Attention deficit di sorder, unspecified type (Primary Dx); Anxiety with depression; Essential hypertension, benign Start: 09-19-2024 End: 09-19-2024 Telephone encounter Jagjit Cheema MD Work Phone: Pulmonology [facility] Comment on above: Patient Update Start: 09-18-2024 End: 09-18-2024 Follow-up encounter Jagjit Cheema MD Work Phone: Family [facility] Start: 09-17-2024 End: 09-17-2024 ambulatory JAGJIT CHEEMA Facility:[facility] Start: 09-11-2024 End: 09-11-2024 ambulatory JAGJIT CHEEMA Facility:[facility] Start: 09-11-2024 End: 09-11-2024 Patient encounter procedure Jagjit Cheema MD Work Phone: [facility] [place] Comment on above: Coronary artery dise ase involving 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 (Primary Dx); Hyperlipidemia, unspecified hyperlipidemia type; Atrial flutter, unspecified type (HCC); Sleep apnea, unspecified type; Gastric intestinal metaplasia; History of pulmonary embolism; History of asthma; Fatigue, unspecified type Start: 08-16-2024 End: 08-16-2024 Patient encounter procedure [facility] Work Phone: Start: 08-16-2024 End: 08-16-2024 Refill Jagjit Cheema MD Work Phone: [facility] [place] Comment on above: Refill Request Start: 07-12-2024 End: 07-12-2024 Telephone encounter Jagjit Cheema MD Work Phone: [facility] [place] Comment on above: [employer] Start: 07-08-2024 End: 07-08-2024 Subsequent hospital visit by physician Xr [facility] [place] Work Phone: Radiology Comment on above: Bacterial pneumonia [J15.9] Start: 07-08-2024 End: 07-08-2024 ambulatory JAGJIT CHEEMA Facility:[facility] Start: 07-08-2024 End: 07-08-2024 Patient encounter procedure Jagjit Cheema MD Work Phone: [facility] [place] Comment on above: Bacterial pneumonia (Primary Dx); Atrial flutter, unspecified type (HCC); Hyperglycemia; Hypokalemia Start: 07-01-2024 End: 07-01-2024 Refill Jagjit Cheema MD Work Phone: [facility] [place] Comment on above: Refill Request Start: 06-25-2024 End: 06-25-2024 Telephone encounter Jagjit Cheema MD Work Phone: [facility] [place] Comment on above: Results Start: 06-24-2024 End: 06-24-2024 ambulatory JAGJIT [facility] Facility:[facility] Start: 06-24-2024 End: 06-24-2024 Patient encounter procedure Jagjit Cheema MD Work Phone: [facility] [place] Comment on above: Bacterial pneumonia (Primary Dx); Hemoptysis; History of pulmonary embolism; SOB (shortness of breath) Start: 06-17-2024 End: 06-17-2024 Subsequent hospital visit by physician [facility] [place] Work Phone: Radiology Comment on above: Bronchitis [J40] Start: 06-17-2024 End: 06-17-2024 ambulatory J[facility]IT [facility] Facility:[facility] Start: 06-17-2024 End: 06-17-2024 Patient encounter procedure Jagjit Cheema MD Work Phone: [facility] [place] Comment on above: Bronchitis (Primary Dx); Sinobronchitis Start: 06-17-2024 End: 06-17-2024 Telephone encounter Jagjit Cheema MD Work Phone: [facility] [place] Comment on above: Patient Question; Or ders Results Start: 06-13-2024 End: 06-13-2024 Patient encounter procedure Carolann Lucas APRN.CNP Work Phone: [facility] Comment on above: Rhinosinusitis (Prim rachel Dx) Start: 06-13-2024 End: 06-13-2024 ambulatory [facility] Facility:[facility] Start: 06-04-2024 End: 06-04-2024 ambulatory [facility] Facility:[facility] Start: 04-26-2024 End: 04-26-2024 Telephone encounter Lisa Javed APRN.CANDLE MOLDER Work Phone: [facility] [place] Comment on above: Lab add on Start: 04-25-2024 End: 04-25-2024 Subsequent hospital visit by physician Saba [facility] [place] Work Phone: Radiology Comment on above: Acute cough [R05.1] Start: 04-25-2024 End: 04-25-2024 ambulatory Jagjit Cheema MD Work Phone: [facility] [place] Comment on above: Fatigue Start: 04-25-2024 End: 04-25-2024 Patient encounter procedure Lisa Javed REMOTE BROADCAST TECHNICIAN.CANDLE MOLDER Work Phone: [facility] [place] Comment on above: Dizziness (Primary D x); Acute cough; Generalized weakness; SOB (shortness of breath) Start: 04-10-2024 End: 04-10-2024 Patient encounter procedure Rojas Dominguez MD Work Phone: [facility] [place] Comment on above: Viral URI with cough (Primary Dx); Uncomplicated asthma, unspecified asthma severity, unspecified whether persistent Start: 04-10-2024 End: 04-10-2024 ambulatory ROJAS DOMINGUEZ Facility:[facility] Start: 03-13-2024 End: 03-13-2024 ambulatory JAGJIT CHEEMA Facility:[facility] Start: 03-13-2024 End: 03-13-2024 Patient encounter procedure Jagjit Cheema MD Work Phone: [facility] [place] Comment on above: LLQ pain (Primary Dx ); RLQ abdominal pain; Diarrhea, unspecified type Start: 03-08-2024 ambulatory JAGJIT CHEEMA Facility :[facility] Start: 03-08-2024 End: 03-08-2024 Subsequent hospital visit by physician [facility] Comment on above: Left lower quadrant abdominal pain [R10.32] Start: 03-08-2024 End: 03-08-2024 Telephone encounter Jagjit Cheema MD Work Phone: [facility] [place] Comment on above: Results Start: 03-08-2024 End: 03-08-2024 ambulatory JAGJIT CHEEMA Facility:[facility] Start: 03-08-2024 End: 03-08-2024 Patient encounter procedure Jagjit Cheema MD Work Phone: [facility] [place] Comment on above: Coronary artery dise ase involving 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 (Primary Dx); Hyperlipidemia, unspecified hyperlipidemia type; Presence of stent in coronary artery; Sleep apnea, unspecified type; Uncomplicated asthma, unspecified asthma severity, unspecified whether persistent; History of pulmonary embolism; History of TIAs; Gastroesophageal reflux disease, unspecified whether esophagitis present; Diarrhea, unspecified type; LLQ pain; Chronic RLQ pain; Left lower quadrant abdominal pain Start: 01-15-2024 End: 01-15-2024 ambulatory Arnold Chris Facility:[facility] Start: 01-09-2024 End: 01-09-2024 Office outpatient visit 10 minutes Beverley Gutierrez REMOTE BROADCAST TECHNICIAN.CANDLE MOLDER Work Phone: [facility] [place] Comment on above: COVID-19 (Primary Dx ) Start: 01-09-2024 End: 01-09-2024 ambulatory JAGJIT Sanders [facility] Facility:[facility] Start: 12-29-2023 End: 12-29-2023 Patient encounter procedure Jagjit Cheema MD Work Phone: [facility] [place] Comment on above: Bronchitis (Primary Dx); Atrial flutter, unspecified type (HCC); Uncomplicated asthma, unspecified asthma severity, unspecified whether persistent; Fatigue, unspecified type Start: 12-13-2023 Telephone encounter Susan puentes APRN.CANDLE MOLDER Work Phone: [facility] [place] Comment on above: Orders Start: 12-13-2023 End: 12-13-2023 Office outpatient visit 25 minutes Susan Kerr APRN.CANDLE MOLDER Work Phone: [facility] [place] Comment on above: Chronic cough (Prima ry Dx); Chest pain on breathing Start: 12-01-2023 Refill Jagjit Cheema MD Work Phone: [facility] [place] Comment on above: Refill Request Start: 11-29-2023 End: 11-29-2023 Patient encounter procedure Jagjit Cheema MD Work Phone: [facility] Comment on above: ADHD (attention defi cit hyperactivity disorder), combined type (Primary Dx); Need for vaccination Start: 10-25-2023 End: 10-25-2023 [facility] Jagjit Cheema MD Work Phone: [facility] Comment on above: ADHD (attention defi cit hyperactivity disorder), combined type (Primary Dx) Start: 10-20-2023 End: 10-20-[address] Jagjit Cheema Work Phone: [facility] Radiology Start: 10-18-2023 End: 10-18-[address] Jagjit Cheema Work Phone: [facility] Work Phone: Start: 10-18-2023 End: 10-18-[address] Jagjit Cheema Work Phone: [facility] Work Phone: Start: 10-16-2023 End: 10-16-[address] 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 Start: 07-19-2023 End: 07-19-2023 ambulatory JAGJIT CHEEMA Facility:[facility] Start: 07-13-2023 End: 07-13-[address] Jagjit Cheema Work Phone: [facility] Work Phone: Start: 07-13-2023 End: 07-13-[address] Jagjit Cheema Work Phone: [facility]Laboratory Work Phone: Start: 07-05-2023 End: 07-05-2023 Admission to same day surgery center Dr. Jagjit Cheema Work Phone: [facility] Start: 07-05-2023 End: 07-05-[address] Jagjit Cheema Work Phone: [facility] Work Phone: Start: 06-30-2023 End: 04-23-2024 Telephone encounter Robby Bales MD Work Phone: General Surgery Comment on above: 07/19/2023 UMBILICAL HERNIA REPAIR [place] Start: 06-08-2023 Refill Jagjit Cheema MD Work Phone: [facility] [place] Comment on above: Refill Request Start: 05-09-2023 End: 05-09-2023 ambulatory [facility] Work Phone: Start: 05-09-2023 End: 05-09-2023 Discharged Recurring [facility]-Physical Therapy Work Phone: Start: 04-27-2023 Registered Recurring [facility] Work Phone: Start: 04-25-2023 End: 04-25-2023 ambulatory [facility] Work Phone: Start: 04-25-2023 End: 04-25-2023 Patient encounter procedure [facility] Work Phone: Start: 04-03-2023 End: 04-03-2023 Subsequent hospital visit by physician Xr [facility] [place] Work Phone: Radiology Comment on above: Pain of left heel [M 79.672] Start: 01-23-2023 End: 01-23-2023 Patient encounter procedure Jagjit Cheema MD Work Phone: [facility] [place] Comment on above: Essential hypertensi on, benign (Primary Dx); Recurrent UTI (urinary tract infection); Adjustment disorder with anxious mood; Fatigue, unspecified type; Atrial flutter, unspecified type (HCC); 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 Start: 01-03-2023 ambulatory Jagjit Cheema MD Work Phone: [facility] [place] Comment on above: Therapist Start: 01-03-2023 Telephone encounter Vee Quintin gutierrez [facility] Work Phone: Psychology Comment on above: bh consult Start: 12-22-2022 Refill Sincere Rosales on PA-C Work Phone: Family [facility] [place] Comment on above: Refill Request Start: 12-19-2022 End: 12-19-2022 Patient encounter procedure [facility] Comment on above: Urinary tract infect ion without hematuria, site unspecified (Primary Dx); Hypokalemia; Leukocytosis, unspecified type Start: 12-16-2022 Non-patient / Non-visit Dr. Catina Cheema Work Phone: [facility] Work Phone: Start: 12-15-2022 End: 12-16-2022 Evaluation and management of inpatient Dr. Jagjit Cheema [facility] Work Phone: Start: 12-15-2022 ambulatory Jagjit Cheema MD Work Phone: [facility] [place] Comment on above: ER F/U Start: 12-14-2022 End: 12-14-2022 Emergency department patient visit Dr. Jagjit Cheema Work Phone: [facility]Emergency Department Work Phone: Start: 12-14-2022 End: 12-14-2022 Patient encounter procedure Jagjit Cheema MD Work Phone: [facility] Comment on above: Urinary tract infect ion with hematuria, site unspecified (Primary Dx); Fever, unspecified fever cause; Dehydration Start: 11-22-2022 ambulatory Kira Watt Work Phone: General Surgery Comment on above: Insurance Start: 11-07-2022 End: 11-07-[address] Jagjit Cheema Work Phone: [facility] Work Phone: Start: 10-25-2022 End: 10-25-2022 Patient encounter procedure Jagjit Cheema MD Work Phone: [facility] Comment on above: Essential hypertensi on, benign (Primary Dx); History of pulmonary embolism; 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; Atrial flutter, unspecified type (HCC); Adjustment disorder with anxious mood Start: 10-25-2022 Telephone encounter Jagjit Cheema MD Work Phone: [facility] Comment on above: Medication Problem Start: 10-21-[address] Pola Cheema Work Phone: [facility]Physical Therapy Work Phone: Start: 09-23-2022 Telephone encounter [facility] Comment on above: Consult (Patient Out reach [facility]) Start: 09-22-2022 End: 09-22-2022 Patient encounter procedure Jagjit Cheema MD Work Phone: [facility] Comment on above: Bacterial sinusitis (Primary Dx); Adjustment disorder with anxious mood; Essential hypertension, benign; Other pulmonary embolism without acute cor pulmonale, unspecified chronicity (HCC); Hyperlipidemia, unspecified hyperlipidemia type; 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 Catina Cheema Work Phone: [facility] Start: 08-09-2022 End: 08-09-2022 Admission to same day surgery center Dr. Jagjit Cheema Work Phone: [facility]-Center Customer Service Associate/Special Procedures Start: 08-09-2022 End: 08-09-[address] Jagjit Cheema Work Phone: [facility] Work Phone: Start: 08-08-2022 Non-patient / Non-visit Dr. Catina Cheema Work Phone: [facility] Start: 08-03-2022 End: 08-03-[address] Jagjit Cheema Work Phone: [facility] Start: 06-22-2022 Refill Jagjit Cheema MD Work Phone: [facility] Comment on above: Refill Request Start: 06-16-2022 End: 06-16-[address] Jagjit Cheema Work Phone: [facility] Work Phone: Start: 06-16-2022 End: 06-16-[address] Jagjit Cheema Work Phone: [facility]Laboratory Start: 06-16-2022 End: 06-16-[address] Jagjit Cheema Work Phone: [facility] Start: 05-18-2022 Non-patient / Non-visit Dr. Cat[facility] Start: 05-18-2022 End: 05-18-[address] Jagjit Cheema Work Phone: [facility] Work Phone: Start: 05-18-2022 End: 05-18-[address] Jagjit Cheema Work Phone: [facility]-Cardiovascul ar Services Start: 05-09-2022 End: 05-09-[address] Jagjit Cheema Work Phone: [facility]-Pulmonary Services/Neurology Start: 05-07-2022 End: 05-07-2022 Emergency department patient visit Dr. Jagjit Cheema Work Phone: [facility]-Emergency Department Start: 04-29-2022 End: 04-29-[address] Jagjit Cheema Work Phone: [facility]Laboratory Start: 04-29-2022 End: 04-29-[address] Jagjit Cheema Work Phone: [facility] Start: 04-25-2022 End: 04-25-[address] Jagjit Cheema Work Phone: [facility] Work Phone: Start: 04-25-2022 End: 04-25-2022 [facility] Start: 04-21-2022 Chart abstracting Jagjit Becker MD Work Phone: [facility] Start: 04-20-2022 End: 04-20-2022 ambulatory [facility] Work Phone: Start: 04-20-2022 End: 04-20-2022 [facility] Start: 03-12-2022 Refill Jagjit Cheema MD Work Phone: [facility] Comment on above: Refill Request Start: 02-22-2022 Nafisa Rosales on PA-C Work Phone: [facility] Comment on above: Refill Request Start: 02-12-2022 End: 02-12-2022 Emergency department patient visit Dr. Jagjit Cheema Work Phone: [facility]-Emergency Department Start: 02-12-2022 End: 02-12-2022 Patient encounter procedure Carolann Lucas COMFORT.CANDLE MOLDER Work Phone: [facility] Comment on above: Facial pain (Primary Dx); Right ear pain; Acute right eye pain Start: 12-16-2021 ambulatory Jagjit Cheema MD Work Phone: [facility] Comment on above: Hello Doc Start: 12-07-2021 Telephone encounter Jagjit Cheema MD Work Phone: [facility] Comment on above: ear problems/sinuses Start: 11-29-2021 Telephone encounter Jagjit Cheema MD Work Phone: [facility] Comment on above: Results Patient Update Start: 11-29-2021 End: 11-29-[address] Jagjit Cheema Work Phone: [facility]-Laboratory, Specimen Start: 11-29-2021 End: 11-29-2021 Subsequent hospital visit by physician Xr [facility] Work Phone: Radiology Comment on above: Other pulmonary embo lism without acute cor pulmonale, unspecified chronicity (HCC) [I26.99] Start: 11-28-2021 ambulatory Jagjit Cheema MD Work Phone: [facility] Comment on above: Covid issues Start: 11-23-2021 End: 11-23-[address] Jagjit Cheema Work Phone: [facility] Start: 11-13-2021 ambulatory Jagjit Cheema MD Work Phone: [facility] Comment on above: Prescription ran out Start: 10-20-2021 End: 10-20-[address] Jagjit Cheema Work Phone: [facility] Start: 10-20-2021 End: 10-20-[address] Jagjit Cheema Work Phone: [facility] Start: 10-14-2021 End: 10-14-2021 Patient encounter procedure Kisha Wen APRN.CNP Work Phone: [facility] Comment on above: Feeling light headed (Primary Dx) Start: 09-30-2021 End: 09-30-[address] Jagjit Cheema Work Phone: [facility] Radiology Start: 09-10-2021 End: 09-10-2021 Patient encounter procedure Oliva Gutierrez PA-C Work Phone: Orthopaedics Comment on above: Pes planus of both f eet (Primary Dx); Acquired valgus deformity of right ankle; Primary osteoarthritis of right ankle Start: 09-10-2021 End: 09-10-2021 Subsequent hospital visit by physician Xr [facility] Work Phone: Radiology Comment on above: Pain [R52] Start: 09-05-2020 Patient encounter procedure Abraham Rosa MD Work Phone: [facility] Start: 09-05-2020 Progress Note Abraham walter MD Work Phone: [facility] Start: 04-28-2020 End: 04-28-2020 Subsequent hospital visit by physician Xr [facility] Work Phone: Radiology Comment on above: Pain of right heel [ M79.671] Start: 03-19-2020 Patient encounter procedure Eyal Montoya DO Work Phone: [facility] Start: 03-19-2020 Progress Note Eyal Bagley Work Phone: [facility] Start: 10-30-2017 End: 10-30-2017 Emergency department patient visit JAGJIT SOUZA [facility] Procedures Date Procedure Procedure Detail Performing [...] exam ches t 2 views Susan Kerr REMOTE BROADCAST TECHNICIAN.CANDLE MOLDER Work Phone: Start: 10-28-2024 Computed tomography of [...] exam ches t 2 views Lisa Javed REMOTE BROADCAST TECHNICIAN.CANDLE MOLDER Work Phone: Start: 03-08-2024 Ct abdomen & pelvis w/contrast material Jagjit Cheema MD Work Phone: Start: 12-29-2023 Adult depression scr eening assessment Xr [place] Work Phone: Start: 10-20-2023 Plain x-ray of pelvi s and lower extremity Dr. Jagjit Cheema Work Phone: Start: 09-06-2023 Lipid 1996 panel - S pierre or Plasma Jagjit Cheeam MD Work Phone: Start: 07-26-2023 End: 07-26-2023 History of percutaneous transluminal coronary angioplasty Status post coronary artery balloon dilation Jagjit Cheema MD Work Phone: Start: 04-03-2023 Radex foot complete minimum 3 views Anabelle Tom REMOTE BROADCAST TECHNICIAN.CANDLE MOLDER Work Phone: Start: 12-15-2022 Plain chest X-ray [...] Work Phone: Start: 01-24-2019 Colonoscopy Kisha Wen APRN.CANDLE MOLDER Work Phone: Start: 05-22-2018 Adult depression scr [...] Follow Up Appt 3 months Lorena Cruz TECHNOLOGY DIRECTOR Work Phone: Start: 08-17-2016 End: 08-17-2016 MMM Lorena Cruz TECHNOLOGY DIRECTOR Work Phone: Start: 01-04-2016 End: 01-04-2016 Dietary [...] 03-31-2015 End: 04-20-2015 Lipid panel [AGGREGATE] Dyana Alvaerz PA-C Work Phone: Start: 03-31-2015 End: 03-31-2015 [...] Alfred MD Start: 08-21-2012 End: 2012 aPTT Wlilis Alfred MD Start: 08-21-2012 End: 2012 CBC [...] Author Start: 09-17-2029 Lipid panel Lipid Screening [facility] Start: 09-05-2028 Lipid panel Lipid Screening [facility] Start: 12-02-2027 Colonoscopy COLONOSCOPY [facility] Start: 12-02-2027 COLORECTAL CANCER SCREENING COLORECTAL CANCER SCREENING [facility] Start: 12-02-2027 Screening for malignant neoplasm of colon [facility] Start: 09-27-2027 Lipid panel Lipid Screening [facility] Start: 09-27-2027 LIPID SCREEN LIPID SCREEN [facility] Start: 09-18-2027 Diabetes Screening Diabetes Screening [facility] Start: 07-08-2027 Diabetes Screening Diabetes Screening [facility] Start: 06-24-2027 Diabetes Screening Diabetes Screening [facility] Start: 04-25-2027 Diabetes Screening Diabetes Screening [facility] Start: 04-20-2027 LIPID SCREEN LIPID SCREEN [facility] Start: 03-08-2027 Diabetes Screening Diabetes Screening [facility] Start: 12-19-2026 Diabetes Screening Diabetes Screening [facility] Start: 12-12-2026 Diabetes Screening Diabetes Screening [facility] Start: 09-05-2026 Diabetes Screening Diabetes Screening [facility] Start: 02-08-2026 Diabetes Screening Diabetes Screening [facility] Start: 12-29-2025 DIABETES SCREEN DIABETES SCREEN [facility] Start: 12-24-2025 Annual PCP Team Chronic Disease Visit Annual PCP Team Chronic Disease Visit [facility] Start: 12-19-2025 DIABETES SCREEN DIABETES SCREEN [facility] Start: 11-18-2025 Annual PCP Team Chronic Disease Visit Annual PCP Team Chronic Disease Visit [facility] Start: 10-22-2025 PROSTATE CANCER SCREENING DISCUSSION PROSTATE CANCER SCREENING DISCUSSION [facility] Start: 10-22-2025 Prostate specific antigen measurement Prostate Cancer Screening Discussion [facility] Start: 10-21-2025 Annual PCP Team Chronic Disease Visit Annual PCP Team Chronic Disease Visit [facility] Start: 09-26-2025 DIABETES SCREEN DIABETES SCREEN [facility] Start: 09-23-2025 Annual PCP Team Chronic Disease Visit Annual PCP Team Chronic Disease Visit [facility] Start: 09-17-2025 Hepatitis B surface antibody level LDL Cholesterol [facility] Start: 09-11-2025 Annual PCP Team Chronic Disease Visit Annual PCP Team Chronic Disease Visit [facility] Start: 09-11-2025 RSV Vaccine (1 - Risk 60-74 years 1-dose series) RSV Vaccine (1 - Risk 60-74 years 1-dose series) [facility] Comment on above: Postponed from 2017 (Declined at t his time) Start: 07-08-2025 Annual PCP Team Chronic Disease Visit Annual PCP Team Chronic Disease Visit [facility] Start: 06-24-2025 Annual PCP Team Chronic Disease Visit Annual PCP Team Chronic Disease Visit [facility] Start: 06-17-2025 Annual PCP Team Chronic Disease Visit Annual PCP Team Chronic Disease Visit [facility] Start: 04-25-2025 Annual PCP Team Chronic Disease Visit Annual PCP Team Chronic Disease Visit [facility] Start: 04-10-2025 Annual PCP Team Chronic Disease Visit Annual PCP Team Chronic Disease Visit [facility] Start: 03-28-2025 End: 03-28-2025 Patient encounter procedure 03/28/2025 8:00 AM EDT Office Visit Family [facility] [address] [place] [id number] Jagjit Cheema MD [address] [facility] [place], [place] [id number] Medicare Wellness [facility] [place] Comment on above: Medicare Wellness Start: 03-27-2025 End: 03-27-2025 Patient encounter procedure 03/27/2025 8:00 AM EDT Appointment [facility] SURGERY [address] [place] [address] Jaimie Bennett MD [address] [id number] Rectal bleeding [K62.5] [facility] Comment on above: Rectal bleeding [K62.5] Start: 03-13-2025 Annual PCP Team Chronic Disease Visit Annual PCP Team Chronic Disease Visit [facility] Start: 03-10-2025 End: 03-10-2025 Patient encounter procedure 03/10/2025 9:00 AM EDT Office Visit Family [facility] [place] [address] [place] [address] Jagjit Cheema MD [address] [facility] [place] [id number] 8 week follow up [facility] Comment on above: 8 week follow up Start: 03-08-2025 Annual PCP Team Chronic Disease Visit Annual PCP Team Chronic Disease Visit [facility] Start: 03-08-2025 Covid-19 Vaccine () Covid-19 Vaccine () [facility] Comment on above: Postponed from 02/18/2024 (Declined at t his time) Start: 03-08-2025 Covid-19 Vaccine () Covid-19 Vaccine () [facility] Comment on above: Postponed from 02/18/2024 (Declined at t his time) Start: 02-17-2025 Influenza vaccination [facility] Start: 01-14-2025 End: 01-14-2025 Patient encounter procedure 01/14/2025 1:45 PM EDT Appointment Ambulatory Surgery [address] [place] [address] Richi Whitney MD [address] [place] [address] Rectal bleeding [K62.5] Ambulatory Surgery Comment on above: Rectal bleeding [K62.5] Start: 01-02-2025 End: 01-02-2025 Anesthesia consultation 01/02/2025 11:59 PM EDT Anesthesia Event Ambulatory Surgery [address] [place] [address] Kell Sanon, REMOTE BROADCAST TECHNICIAN.LOSS CONTROL TECHNICIAN [address] [place] [address] Ambulatory Surgery Start: 12-31-2024 End: 12-31-2024 Patient encounter procedure General Surgery Comment on above: Rectal bleeding [K62.5]-Colonoscopy CONSULT: Rectal blee ding-Colonoscopy. Last 12/01/22 ([address] Deni watkins [facility] Start: 12-28-2024 Annual PCP Team Chronic Disease Visit Annual PCP Team Chronic Disease Visit [facility] Start: 12-28-2024 Anxiety Screening Anxiety Screening [facility] Start: 12-28-2024 Covid-19 Vaccine ( season) Covid-19 Vaccine ( season) [facility] Comment on above: Postponed from 11/24/2023 (Declined at t his time) Start: 12-28-2024 Depression Screening Depression Screening [facility] Start: 12-24-2024 End: 12-24-2024 Patient encounter procedure 12/24/2024 2:00 PM EDT Office Visit [facility] [address] [place] [address] Jagjit Cheema MD [address] [place] [place] [address] 8 week follow up [facility] Comment on above: 8 week follow up Start: 12-22-2024 LIPID SCREEN LIPID SCREEN [facility] Start: 12-16-2024 Influenza vaccination [facility] (#[facility] Comment on above: Postponed from 02/18/2024 (Declined at t his time) Start: 12-12-2024 Annual PCP Team Chronic Disease Visit Annual PCP Team Chronic Disease Visit [facility] Start: 11-28-2024 Annual PCP Team Chronic Disease Visit Annual PCP Team Chronic Disease Visit [facility] Start: 11-28-2024 Patient referral [facility] Work Phone: Start: 11-28-2024 Shingrix Vaccine (1 of 2) Shingrix Vaccine (1 of 2) [facility] Comment on above: Postponed from 09/22/2007 (Declined at t his time) Start: 11-28-2024 Urine microalbumin profile DTaP,Tdap,Td Vaccine (1 - Tdap) [facility] Comment on above: Postponed from 1976 (Declined at t his time) Start: 11-20-2024 [facility] Start: 11-20-2024 End: 11-20-2024 [facility] Start: 10-28-2024 [facility] Start: 10-24-2024 Annual PCP Team Chronic Disease Visit Annual PCP Team Chronic Disease Visit [facility] Start: 10-21-2024 End: 10-21-2024 Patient encounter procedure 10/21/2024 9:00 AM EDT Office Visit Family [facility] [place] [address] [place] [address] Jagjit Cheema MD [address] [place] [id number] 1 mo follow up Family [facility] Comment on above: 1 mo follow up Start: 10-18-2024 End: 01-17-2025 Platelets [#/volume] in Blood PLATELET COUNT Lab Routine Thrombocytopenia Expected: 10/18/2024, Expires: 01/17/2025 [facility] Work Phone: Comment on above: Expected: 10/18/2024, Expires: Start: 10-18-2024 End: 10-18-2024 ambulatory 10/18/2024 7:30 AM EDT Results Only [facility] [address] [place] [address] [facility] Start: 10-14-2024 DIABETES SCREEN DIABETES SCREEN [facility] Start: 10-14-2024 End: 10-14-2024 Patient encounter procedure 10/14/2024 7:40 AM EDT Office Visit [facility] [place] [address] [place] [address] Susan Kerr APRN.CANDLE MOLDER [address] [place] [address] 1 month BP check [facility] [place] Comment on above: 1 month BP check Start: 09-23-2024 End: 09-23-2024 Patient encounter procedure 09/23/2024 9:40 AM EDT Office Visit [facility] [place] [address] [place] [address] Jagjit Cheema MD [address] [place] [id number] Switch meds. See TE 09/19/24. Family [facility] Comment on above: Switch meds. See TE 09/19/24. Start: 09-11-2024 End: 12-11-2024 CBC W Auto Differential panel - Blood COMPLETE BLOOD COUNT AND DIFFERENTIAL Lab Routine Fatigue, unspecified type Expected: 09/11/2024, Expires: 12/11/2024 [facility] Comment on above: Expected: 09/11/2024, Expires: Start: 09-11-2024 End: 12-11-2024 Comprehensive metabolic 2000 panel - Serum or Plasma COMPREHENSIVE METABOLIC PANEL Lab Routine Fatigue, unspecified type Expected: 09/11/2024, Expires: 12/11/2024 [facility] Comment on above: Expected: 09/11/2024, Expires: Start: 09-11-2024 End: 12-11-2024 Erythrocyte sedimentation rate SEDIMENTATION RATE, WESTERGREN Lab Routine Fatigue, unspecified type Expected: 09/11/2024, Expires: 12/11/2024 [facility] Comment on above: Expected: 09/11/2024, Expires: Start: 09-11-2024 End: 12-11-2024 Lipid 1996 panel - Serum or Plasma LIPID PANEL, FASTING Lab Routine Hyperlipidemia, unspecified hyperlipidemia type Expected: 09/11/2024, Expires: 12/11/2024 [facility] [facility] Comment on above: Expected: 09/11/2024, Expires: Start: 09-11-2024 End: 12-11-2024 T4/FTI/T4U T4/FTI/T4U Lab Routine Fatigue, unspecified type Expected: 09/11/2024, Expires: 12/11/2024 [facility] Comment on above: Expected: 09/11/2024, Expires: Start: 09-11-2024 End: 12-11-2024 Thyrotropin [Units/volume] in Serum or Plasma THYROID STIMULATING HORMONE Lab Routine Fatigue, unspecified type Expected: 09/11/2024, Expires: 12/11/2024 [facility] Work Phone: Comment on above: Expected: 09/11/2024, Expires: Start: 09-11-2024 End: 09-11-2024 Patient encounter procedure [facility] Comment on above: 6 month follow up 6 month follow up/re view for c-pap supplies Start: 03-20-2025 Hepatitis B surface antibody level LDL Cholesterol [facility] Start: 09-04-2024 Annual PCP Team Chronic Disease Visit Annual PCP Team Chronic Disease Visit [facility] Start: 07-26-2024 Annual PCP Team Chronic Disease Visit Annual PCP Team Chronic Disease Visit [facility] Start: 07-26-2024 RSV Vaccine (1 - 1-dose 60+ series) RSV Vaccine (1 - 1-dose 60+ series) [facility] Comment on above: Postponed from 2017 (Declined at t his time) Start: 07-26-2024 RSV Vaccine (1 - Risk 60-74 years 1-dose series) RSV Vaccine (1 - Risk 60-74 years 1-dose series) [facility] Comment on above: Postponed from 2017 (Declined at t his time) Start: 07-09-2024 End: 10-08-2024 Hemoglobin A1c in Blood HEMOGLOBIN A1C Lab Routine Hyperglycemia Hypokalemia Expected: 07/09/2024, Expires: 10/08/2024 [facility] Comment on above: Expected: 07/09/2024, Expires: Start: 07-09-2024 End: 10-08-2024 Potassium [Moles/volume] in Serum or Plasma POTASSIUM Lab Routine Hyperglycemia Hypokalemia Expected: 07/09/2024, Expires: 10/08/2024 [facility] Work Phone: Comment on above: Expected: 07/09/2024, Expires: Start: 07-08-2024 End: 07-08-2024 Patient encounter procedure 07/08/2024 9:00 AM EST Office Visit Family [facility] [address] [place] [address] Jagjit Cheema MD [address] [place] [id number] pneumonia follow up [facility] Comment on above: pneumonia follow up Start: 06-24-2024 End: 09-23-2024 Basic metabolic 2000 panel - Serum or Plasma [facility] Comment on above: Expected: 06/24/2024, Expires: Start: 06-24-2024 End: 09-23-2024 CBC W Auto Differential panel - Blood [facility] Comment on above: Expected: 06/24/2024, Expires: Start: 06-24-2024 End: 06-24-2024 Patient encounter procedure 06/24/2024 9:00 AM EST Office Visit [facility] [address] [place] [id number] Jagjit Cheema MD [address] [place] [id number] recheck pneumonia [facility] Comment on above: recheck pneumonia Start: 06-19-2024 Advance Directive Discussion Advance Directive Discussion [facility] Start: 06-18-2024 Advance Directive Discussion Advance Directive Discussion [facility] Comment on above: Postponed from 06/19/2023 (Declined at t his time) Start: 06-04-2024 DIABETES SCREEN DIABETES SCREEN [facility] Start: 04-26-2024 End: 07-26-2024 Hemoglobin A1c in Blood [facility] Work Phone: Comment on above: Expected: 04/26/2024, Expires: Start: 04-25-2024 End: 07-25-2024 Comprehensive metabolic 2000 panel - Serum or Plasma [facility] Work Phone: Comment on above: Expected: 04/25/2024, Expires: Start: 04-03-2024 BP Controlled (<130/80) BP Controlled (<130/80) [facility] Start: 03-13-2024 End: 03-13-2024 Patient encounter procedure 03/13/2024 9:00 AM EDT Office Visit Family [facility] [address] [place] [id number] Jagjit Cheema MD [address] [place], [place] [phone] follow up Family [facility] Comment on above: follow up Start: 03-08-2024 Subsequent hospital visit by physician 03/08/2024 2:56 PM EDT Hospital Encounter [facility] [address] [place] [address] Left lower quadrant abdominal pain [R10.32] [facility] Comment on above: Left lower quadrant abdominal pain [R10. 32] Start: 03-08-2024 End: 06-07-2024 Bacteria identified in Urine by Culture URINE CULTURE Microbiology Routine Chronic RLQ pain Left lower quadrant abdominal pain Expected: 03/08/2024, Expires: 06/07/2024 [facility] Comment on above: Expected: 03/08/2024, Expires: Start: 03-08-2024 End: 06-07-2024 Comprehensive metabolic 2000 panel - Serum or Plasma [facility] Work Phone: Comment on above: Expected: 03/08/2024, Expires: Start: 03-08-2024 End: 06-07-2024 Urinalysis complete panel - Urine URINALYSIS, WITH MICROSCOPIC Lab Routine Chronic RLQ pain Left lower quadrant abdominal pain Expected: 03/08/2024, Expires: 06/07/2024 [facility] Comment on above: Expected: 03/08/2024, Expires: Start: 03-08-2024 End: 03-08-2024 Patient encounter procedure 03/08/2024 9:40 AM EDT Office Visit Family [facility] [address] [place] [address] Jagjit Cheema MD [address] [place], [place] [id number] 6 month follow up [facility] Comment on above: 6 month follow up Start: 02-18-2024 Covid-19 Vaccine ( season) Covid-19 Vaccine () [facility] Start: 02-18-2024 Influenza vaccination Influenza Vaccine (#1) [facility] Start: 01-26-2024 End: 01-26-2024 Patient encounter procedure 01/26/2024 8:00 AM EDT Office Visit [facility] [address] [facility] [place], [place] [address] Susan Kerr, [employer] [address] [place] [address] 4 week follow up bronchitis/fatigue. possibly adjusting strattera depending. [facility] Comment on above: 4 week follow up bronchitis/fatigue. pos sibly adjusting strattera depending. Start: 01-24-2024 ANNUAL PCP TEAM CHRONIC DISEASE VISIT ANNUAL PCP TEAM CHRONIC DISEASE VISIT [facility] Start: 12-22-2023 End: 12-22-2023 Patient encounter procedure 12/22/2023 9:40 AM EDT Office Visit Family [facility] [address] [place] [address] Jagjit Cheema MD [address] [place] [address] ADD Medication advice Family [facility] Comment on above: ADD Medication advice Start: 12-20-2023 ANNUAL PCP TEAM CHRONIC DISEASE VISIT ANNUAL PCP TEAM CHRONIC DISEASE VISIT [facility] Start: 12-20-2023 End: 12-20-2023 ambulatory 12/20/2023 8:00 AM EDT Results Only [facility] [address] [place] [address] [facility] Start: 12-15-2023 ANNUAL PCP TEAM CHRONIC DISEASE VISIT ANNUAL PCP TEAM CHRONIC DISEASE VISIT [facility] Start: 12-13-2023 End: 03-13-2024 Basic metabolic 2000 panel - Serum or Plasma BASIC METABOLIC PANEL Lab Routine Hypokalemia Expected: 12/13/2023, Expires: 03/13/2024 [facility] Comment on above: Expected: 12/13/2023, Expires: Start: 11-24-2023 Covid-19 Vaccine () Covid-19 Vaccine () [facility] Start: 10-26-2023 ANNUAL PCP TEAM CHRONIC DISEASE VISIT ANNUAL PCP TEAM CHRONIC DISEASE VISIT [facility] Start: 09-27-2023 Hepatitis B surface antibody level LDL CHOLESTEROL [facility] Start: 09-23-2023 ANNUAL PCP TEAM CHRONIC DISEASE VISIT ANNUAL PCP TEAM CHRONIC DISEASE VISIT [facility] Start: 09-23-2023 COVID-19 VACCINE (4 - Booster for Pfizer series) COVID-19 VACCINE (4 - Booster for Pfizer series) [facility] Comment on above: Postponed from 06/28/2021 (Declined at t his time) Start: 09-23-2023 COVID-19 VACCINE (4 - Pfizer series) COVID-19 VACCINE (4 - Pfizer series) [facility] Comment on above: Postponed from 06/28/2021 (Declined at t his time) Start: 09-23-2023 SHINGRIX VACCINE (1 of 2) SHINGRIX VACCINE (1 of 2) [facility] Comment on above: Postponed from 09/22/2007 (Declined at t his time) Start: 09-23-2023 Urine microalbumin profile [facility] Comment on above: Postponed from 1976 (Declined at t his time) Start: 09-22-2023 Pneumococcal Vaccine: 65+ (2 of 2 - PCV) Pneumococcal Vaccine: 65+ (2 of 2 - PCV) [facility] Comment on above: Postponed from 04/19/2013 (Postponed To Appropriate Date) Postponed from 09/21 (Postponed To Appropriate Date) Start: 09-22-2023 PNEUMOCOCCAL: 65+ (2 - PCV) PNEUMOCOCCAL: 65+ (2 - PCV) [facility] Comment on above: Postponed from 04/19/2013 (Postponed To Appropriate Date) Start: 09-07-2023 End: 12-07-2023 Hemoglobin A1c in Blood HGB A1C Lab Routine Hyperglycemia Expected: 09/07/2023, Expires: 12/07/2023 [facility] Work Phone: Comment on above: Expected: 09/07/2023, Expires: 4 Start: 09-05-2023 End: 12-05-2023 CBC W Auto Differential panel - Blood CBC + DIFF Lab Routine Fatigue, unspecified type Expected: 09/05/2023, Expires: 12/05/2023 [facility] Work Phone: Comment on above: Expected: 09/05/2023, Expires: 4 Start: 09-05-2023 End: 12-05-2023 Comprehensive metabolic 2000 panel - Serum or Plasma COMP METABOLIC PANEL Lab Routine Fatigue, unspecified type Expected: 09/05/2023, Expires: 12/05/2023 [facility] Work Phone: Comment on above: Expected: 09/05/2023, Expires: 4 Start: 09-05-2023 End: 12-05-2023 Lipid 1996 panel - Serum or Plasma LIPID PANEL BASIC Lab Routine Hyperlipidemia, unspecified hyperlipidemia type Expected: 09/05/2023, Expires: 12/05/2023 [facility] Work Phone: Comment on above: Expected: 09/05/2023, Expires: 4 Start: 09-05-2023 End: 12-05-2023 Testosterone [Mass/volume] in Serum or Plasma TESTOSTERONE TOTAL Lab Routine Testosterone deficiency Fatigue, unspecified type Expected: 09/05/2023, Expires: 12/05/2023 [facility] Work Phone: Comment on above: Expected: 09/05/2023, Expires: 4 Start: 09-05-2023 End: 12-05-2023 Thyrotropin [Units/volume] in Serum or Plasma TSH BLD Lab Routine Acute constipation Expected: 09/05/2023, Expires: 12/05/2023 [facility] Work Phone: Comment on above: Expected: 09/05/2023, Expires: 4 Start: 06-19-2023 Behavioral Health Screening Behavioral Health Screening [facility] Start: 04-20-2023 Hepatitis B surface antibody level LDL CHOLESTEROL [facility] Start: 02-17-2023 Covid-19 Vaccine () Covid-19 Vaccine () [facility] Start: 02-17-2023 Influenza vaccination [facility] Start: 01-23-2023 End: 03-25-2023 ALBUMIN/CREAT RATIO RND UR ALBUMIN/CREAT RATIO RND UR Lab Routine Recurrent UTI (urinary tract infection) Expected: 01/23/2023, Expires: 03/25/2023 [facility] Work Phone: Comment on above: Expected: 01/23/2023, Expires: 3 Start: 01-23-2023 End: 03-25-2023 Basic metabolic 2000 panel - Serum or Plasma BASIC METABOLIC PNL Lab Routine Essential hypertension, benign Expected: 01/23/2023, Expires: 03/25/2023 [facility] Work Phone: Comment on above: Expected: 01/23/2023, Expires: Start: 01-23-2023 End: 03-25-2023 Thyrotropin [Units/volume] in Serum or Plasma TSH BLD Lab Routine Fatigue, unspecified type Expected: 01/23/2023, Expires: 03/25/2023 [facility] Work Phone: Comment on above: Expected: 01/23/2023, Expires: Start: 01-23-2023 End: 03-25-2023 Urinalysis complete panel - Urine URINALYSIS, WITH MICROSCOPIC Lab Routine Recurrent UTI (urinary tract infection) Expected: 01/23/2023, Expires: 03/25/2023 [facility] Work Phone: Comment on above: Expected: 01/23/2023, Expires: Start: 12-19-2022 End: 02-18-2023 Basic metabolic 2000 panel - Serum or Plasma [facility] Work Phone: Comment on above: Expected: 12/19/2022, Expires: Start: 12-16-2022 Patient discharge [facility] Start: 12-15-2022 Following clinical pathway protocol [facility] Start: 12-15-2022 Assessment of risk of venous thromboembolism [facility] Start: 12-15-2022 Continuous positive airway pressure ventilation treatment [facility] Start: 12-15-2022 Fall prevention [facility] Start: 12-15-2022 Incentive spirometry [facility] Start: 12-15-2022 Inhalation therapy procedure [facility] Start: 12-15-2022 Insertion of catheter into peripheral vein [facility] Start: 12-15-2022 Introduction of urinary catheter [facility] Start: 12-15-2022 Measuring intake and output [facility] Start: 12-15-2022 Oxygen therapy [facility] Start: 12-15-2022 Providing care according to standard [facility] Start: 12-15-2022 Provision of activity privileges [facility] Start: 12-15-2022 Referral to service [facility] Start: 12-15-2022 [facility] Start: 12-15-2022 Verification routine [facility] Start: 12-15-2022 Admission procedure [facility] Start: 12-15-2022 Respiratory Panel (PCR) Respiratory Panel (PCR) [facility] Start: 12-15-2022 Consultation [facility] Start: 12-15-2022 Patient referral to dietitian [facility] Start: 12-14-2022 End: 12-14-2022 Blood culture [facility] Start: 12-14-2022 End: 12-14-2022 [facility] Start: 12-14-2022 Bacteria identified in Blood by Culture Blood Culture [facility] Start: 12-14-2022 Urine culture Urine Culture [facility] Start: 11-29-2022 ANNUAL PCP TEAM CHRONIC DISEASE VISIT ANNUAL PCP TEAM CHRONIC DISEASE VISIT [facility] Start: 09-22-2022 End: 11-22-2022 25-hydroxyvitamin D3 [Mass/volume] in Serum or Plasma VITAMIN D 25 HYDROXY Lab Routine Hyperlipidemia, unspecified hyperlipidemia type 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 Myalgia Disorder of bone, unspecified Expected: 09/22/2022, Expires: 11/22/2022 [facility] Work Phone: Comment on above: Expected: 09/22/2022, Expires: 3 Start: 09-22-2022 End: 11-22-2022 C reactive protein [Mass/volume] in Serum or Plasma C-REACTIVE PROTEIN (CRP) Lab Routine Myalgia Expected: 09/22/2022, Expires: 11/22/2022 [facility] Work Phone: Comment on above: Expected: 09/22/2022, Expires: 3 Start: 09-22-2022 End: 11-22-2022 CBC W Auto Differential panel - Blood CBC + DIFF Lab Routine Essential hypertension, benign Expected: 09/22/2022, Expires: 11/22/2022 [facility] Work Phone: Comment on above: Expected: 09/22/2022, Expires: 3 Start: 09-22-2022 End: 11-22-2022 Comprehensive metabolic 2000 panel - Serum or Plasma COMP METABOLIC PANEL Lab Routine Essential hypertension, benign Expected: 09/22/2022, Expires: 11/22/2022 [facility] Work Phone: Comment on above: Expected: 09/22/2022, Expires: 3 Start: 09-22-2022 End: 11-22-2022 Creatine kinase [Enzymatic activity/volume] in Serum or Plasma CK CREATINE KINASE Lab Routine Essential hypertension, benign Expected: 09/22/2022, Expires: 11/22/2022 [facility] Work Phone: Comment on above: Expected: 09/22/2022, Expires: 3 Start: 09-22-2022 End: 11-22-2022 Erythrocyte sedimentation rate SED RATE WESTERGREN Lab Routine Myalgia Expected: 09/22/2022, Expires: 11/22/2022 [facility] Work Phone: Comment on above: Expected: 09/22/2022, Expires: 3 Start: 09-22-2022 End: 11-22-2022 Lipid 1996 panel - Serum or Plasma LIPID PANEL BASIC Lab Routine Hyperlipidemia, unspecified hyperlipidemia type Expected: 09/22/2022, Expires: 11/22/2022 [facility] Work Phone: Comment on above: Expected: 09/22/2022, Expires: 3 Start: 2022 Pneumococcal Vaccine: 65+ (2 of 2 - PCV) Pneumococcal Vaccine: 65+ (2 of 2 - PCV) [facility] Start: 07-26-2022 ANNUAL PCP TEAM CHRONIC DISEASE VISIT ANNUAL PCP TEAM CHRONIC DISEASE VISIT [facility] Start: 06-19-2022 DEPRESSION ASSESSMENT DEPRESSION ASSESSMENT [facility] Start: 05-07-2022 [facility] Start: 04-19-2022 Medicare Annual Wellness Visit Medicare Annual Wellness Visit [facility] Start: 02-17-2022 Influenza vaccination [facility] Start: 01-28-2022 Colonoscopy COLONOSCOPY [facility] Start: 01-28-2022 COLORECTAL CANCER SCREENING COLORECTAL CANCER SCREENING [facility] Start: 01-24-2022 Colonoscopy COLONOSCOPY [facility] Start: 01-24-2022 COLORECTAL CANCER SCREENING COLORECTAL CANCER SCREENING [facility] Start: 10-14-2021 End: 12-14-2021 CBC panel - Blood by Automated count [facility] Work Phone: Comment on above: Expected: 10/14/2021, Expires: 2 Start: 10-14-2021 End: 12-14-2021 Comprehensive metabolic 2000 panel - Serum or Plasma [facility] Work Phone: Comment on above: Expected: 10/14/2021, Expires: 2 Start: 10-14-2021 End: 12-14-2021 Thyrotropin [Units/volume] in Serum or Plasma [facility] Work Phone: Comment on above: Expected: 10/14/2021, Expires: 2 Start: 10-14-2021 End: 12-14-2021 VITAMIN D 25 HYDROXY [facility] Work Phone: Comment on above: Expected: 10/14/2021, Expires: 2 Start: 08-31-2021 COVID-19 VACCINE (4 - Booster for Pfizer series) COVID-19 VACCINE (4 - Booster for Pfizer series) [facility] Start: 06-28-2021 COVID-19 VACCINE (4 - Booster for Pfizer series) COVID-19 VACCINE (4 - Booster for Pfizer series) [facility] Start: 06-19-2021 DEPRESSION ASSESSMENT DEPRESSION ASSESSMENT [facility] Start: 02-17-2021 Influenza vaccination INFLUENZA (#1) [facility] Start: 12-22-2020 Hepatitis B surface antibody level LDL CHOLESTEROL [facility] Start: 10-26-2019 FECAL OCCULT BLOOD FECAL OCCULT BLOOD [facility] Start: 10-26-2019 Screening for malignant neoplasm of colon Fecal Occult Blood [facility] Start: 05-22-2019 Adult depression screening assessment DEPRESSION SCREENING [facility] Start: 2017 RSV Vaccine (1 - 1-dose 60+ series) RSV Vaccine (1 - 1-dose 60+ series) [facility] Start: 2017 RSV Vaccine (1 - Risk 60-74 years 1-dose series) RSV Vaccine (1 - Risk 60-74 years 1-dose series) [facility] Start: 06-13-2017 End: 06-13-2017 Appointment Appointment [facility] Work Phone: Start: 12-16-2016 End: 06-01-2017 *Hepatic Function Panel *Hepatic Function Panel [facility] Work Phone: Start: 12-16-2016 End: 06-01-2017 Lipid panel [AGGREGATE] *Lipid Profile CC PCP [facility] Work Phone: Start: 12-14-2016 End: 12-14-2016 Follow Up Appt 6 months Follow Up Appt 6 months [facility] Work Phone: Start: 12-14-2016 End: 06-01-2017 Follow Up Appt Other Follow Up Appt Other [facility] Work Phone: Start: 12-14-2016 End: 12-14-2016 MMM MMM [facility] Work Phone: Start: 08-17-2016 End: 08-17-2016 Follow Up Appt 3 months Follow Up Appt 3 months [facility] Work Phone: Start: 08-17-2016 End: 08-17-2016 MMM MMM [facility] Work Phone: Start: 01-04-2016 End: 01-04-2016 Ct thorax w/dye CT Chest with Contrast [facility] Work Phone: Start: 01-04-2016 End: 01-04-2016 Echocardiography Echocardiogram (complete) [facility] Work Phone: Start: 01-04-2016 End: 01-04-2016 Electrocardiogram, complete EKG (In office) [facility] Work Phone: Start: 01-04-2016 End: 01-04-2016 Follow Up Appt Other Follow Up Appt Other [facility] Work Phone: Start: 01-04-2016 End: 01-04-2016 Nuclear stress test -exercise Nuclear stress test -exercise [facility] Work Phone: Start: 10-19-2015 End: 11-22-2016 *Hepatic Function Panel *Hepatic Function Panel [facility] Work Phone: Start: 10-19-2015 End: 11-22-2016 Lipid panel [AGGREGATE] *Lipid Profile CC PCP [facility] Work Phone: Start: 04-24-2015 End: 04-20-2015 *Hepatic Function Panel *Hepatic Function Panel [facility] Work Phone: Start: 04-24-2015 End: 04-20-2015 Lipid panel [AGGREGATE] *Lipid Profile CC PCP [facility] Work Phone: Start: 03-31-2015 End: 04-20-2015 *Hepatic Function Panel *Hepatic Function Panel [facility] Work Phone: Start: 03-31-2015 End: 03-31-2015 Follow Up Appt 6 months Follow Up Appt 6 months [facility] Work Phone: Start: 03-31-2015 End: 04-20-2015 Lipid panel [AGGREGATE] *Lipid Profile CC PCP [facility] Work Phone: Start: 03-31-2015 End: 03-31-2015 PFM PFM [facility] Work Phone: Start: 03-31-2015 End: 04-20-2015 Thyroid stimulating hormone (TSH) *TSH [facility] Work Phone: Start: 03-31-2015 End: [...] Lipid panel [AGGREGATE] *Lipid Profile CC PCP [facility] Work Phone: Start: 09-22-2014 End: 09-22-2014 Follow Up Appt 6 months Follow Up Appt 6 months [facility] Work Phone: Start: 09-22-2014 End: 09-22-2014 Follow Up BP Check Follow Up BP Check [facility] Work Phone: Start: 09-22-2014 End: 09-22-2014 MMM MMM [facility] Work Phone: Start: 03-24-2014 End: 03-24-2014 Follow Up Appt 6 months Follow Up Appt 6 months [facility] Work Phone: Start: 03-24-2014 End: 03-24-2014 Follow Up Appt Other Follow Up Appt Other [facility] Work Phone: Start: 03-24-2014 End: 03-24-2014 PFM PFM [facility] Work Phone: Start: 03-19-2014 End: 03-31-2014 *Hepatic Function Panel *Hepatic Function Panel [facility] Work Phone: Start: 03-19-2014 End: 03-31-2014 Lipid panel [AGGREGATE] *Lipid Profile CC PCP [facility] Work Phone: Start: 12-04-2013 End: 12-04-2013 *BMP *BMP [facility] Work Phone: Start: 12-04-2013 End: 12-04-2013 CBC W Auto Differential panel - Blood *CBC without Diff [facility] Work Phone: Start: 12-04-2013 End: 03-25-2015 Chest x-ray X-Ray, Chest, PA & Lateral [employer] Work Phone: Start: 12-04-2013 End: 12-04-2013 Coagulation factor induced.INR assay in platelet poor plasma *PT/INR [facility] [employer] Phone: Start: 12-04-2013 End: 03-12-2014 Electrocardiogram, complete EKG (In office) [facility] Work Phone: Start: 12-04-2013 End: 12-04-2013 Left Heart Cath Left Heart Cath [facility] Work Phone: Start: 12-02-2013 End: 12-05-2013 Stress Echocardiogram (treadmill) Stress Echocardiogram (treadmill) [facility] Phone: Start: 10-30-2013 End: 01-08-2015 Follow Up Appt Other Follow Up Appt Other [facility] Work Phone: Start: 09-04-2013 End: 09-16-2013 *Hepatic Function Panel *Hepatic Function Panel [employer] Work Phone: Start: 09-04-2013 End: 09-04-2013 Follow Up Appt 6 months Follow Up Appt 6 months [employer] Work Phone: Start: 09-04-2013 End: 01-08-2015 Follow Up Appt Other Follow Up Appt Other [facility] [employer] Work Phone: Start: 09-04-2013 End: 09-16-2013 Lipid panel [AGGREGATE] *Lipid Profile CC PCP [facility] Work Phone: Start: 09-04-2013 End: 09-04-2013 MMM MMM [facility] Work Phone: Start: 06-17-2013 End: 09-16-2013 *Hepatic Function Panel *Hepatic Function Panel [employer] Phone: Start: 06-17-2013 End: 09-16-2013 Lipid panel [AGGREGATE] *Lipid Profile CC PCP [facility] Work Phone: Start: 04-19-2013 PNEUMOCOCCAL (2 - PCV) PNEUMOCOCCAL (2 - PCV) [facility] Start: 01-30-2013 End: 01-30-2013 Arterial exam Arterial exam [facility] Work Phone: Start: 01-30-2013 End: 01-30-2013 Follow Up Appt 6 months Follow Up Appt 6 months [facility] Work Phone: Start: 01-30-2013 End: 01-30-2013 PFM PFM [facility] Work Phone: Start: 01-30-2013 End: 01-30-2013 Pulmonary Fuction Test - complete Pulmonary Fuction Test - complete [facility] Work Phone: Start: 12-17-2012 End: 12-17-2012 *BMP *BMP [facility] Work Phone: Start: 12-17-2012 End: 12-02-2013 CBC W Auto Differential panel - Blood *CBC without Diff [facility] Work Phone: Start: 12-17-2012 End: 12-02-2013 Chest x-ray X-Ray, Chest, PA & Lateral [facility] Work Phone: Start: 12-17-2012 End: 12-02-2013 Coagulation factor induced.INR assay in platelet poor plasma [facility] Work Phone: Start: 12-17-2012 End: 12-17-2012 Electrocardiogram, complete EKG (In office) [facility] Work Phone: Start: 12-17-2012 End: 12-02-2013 Follow Up Appt Other Follow Up Appt Other [facility] Work Phone: Start: 12-17-2012 End: 12-02-2013 Left Heart Cath Left Heart Cath [facility] Work Phone: Start: 12-17-2012 End: 12-02-2013 PFM PFM [facility] Work Phone: Start: 2012 End: 12-17-2012 *Hepatic Function Panel *Hepatic Function Panel [facility] Work Phone: Start: 2012 End: 2012 Cardiac Rehab Cardiac Rehab [facility] Work Phone: Start: 2012 End: 10-23-2012 Electrocardiogram, complete EKG (In office) [facility] Work Phone: Start: 2012 End: 2012 Follow Up Appt Other Follow Up Appt Other [facility] Work Phone: Start: 2012 End: 12-17-2012 Lipid panel [AGGREGATE] *Lipid Profile [facility] Work Phone: Start: 09-03-2012 End: 09-04-2012 *BMP *BMP [facility] Work Phone: Start: 09-03-2012 End: 09-03-2012 aPTT *PTT-Partial Thromboplastin Time [facility] Work Phone: Start: 09-03-2012 End: 09-03-2012 aPTT Coag time (PPP) *PTT-Partial Thromboplastin Time [facility] Work Phone: Start: 09-03-2012 End: 09-04-2012 CBC W Auto Differential panel - Blood *CBC without Diff [facility] Work Phone: Start: 09-03-2012 End: 09-04-2012 Chest x-ray X-Ray, Chest, PA & Lateral [facility] Work Phone: Start: 09-03-2012 End: 09-03-2012 Coagulation factor induced.INR assay in platelet poor plasma *PT/INR [facility] Work Phone: Start: 09-03-2012 End: 09-04-2012 Electrocardiogram, complete EKG (In office) [facility] Work Phone: Start: 09-03-2012 End: 2012 Follow Up Appt Other Follow Up Appt Other [facility] Work Phone: Start: 09-03-2012 End: 09-04-2012 Left Heart Cath Left Heart Cath [facility] Work Phone: Start: 09-03-2012 End: 2012 MMM MMM [facility] Work Phone: Start: 08-21-2012 End: 2012 *BMP *BMP [facility] Work Phone: Start: 08-21-2012 End: 2012 aPTT *PTT-Partial Thromboplastin Time [facility] Work Phone: Start: 08-21-2012 End: 2012 aPTT Coag time (PPP) *PTT-Partial Thromboplastin Time [facility] Work Phone: Start: 08-21-2012 End: 2012 CBC W Auto Differential panel - Blood *CBC without Diff [facility] Work Phone: Start: 08-21-2012 End: 2012 Chest x-ray X-Ray, Chest, PA & Lateral [facility] Work Phone: Start: 08-21-2012 End: 2012 Coagulation factor induced.INR assay in platelet poor plasma *PT/INR [facility] Work Phone: Start: 08-21-2012 End: 2012 Electrocardiogram, complete EKG (In office) [facility] Work Phone: Start: 08-21-2012 End: 08-21-2012 Left Heart Cath Left Heart Cath [facility] Work Phone: Start: 07-18-2012 End: 07-18-2012 Echocardiography Echocardiogram (complete) [facility] Work Phone: Start: 07-18-2012 End: 07-18-2012 Electrocardiogram, complete EKG (In office) [facility] Work Phone: Start: 07-18-2012 End: 07-18-2012 Follow Up Appt 6 months Follow Up Appt 6 months [facility] Work Phone: Start: 07-18-2012 End: 07-18-2012 Nuclear stress test -exercise Nuclear stress test -exercise [facility] Work Phone: Start: 07-18-2012 End: 07-18-2012 PFM PFM [facility] Work Phone: Start: 09-22-2007 SHINGRIX VACCINE (1 of 2) SHINGRIX VACCINE (1 of 2) [facility] Start: 2002 COLOGUARD (FIT-DNA) COLOGUARD (FIT-DNA) [facility] Start: [address] COLONOGRAPHY [facility] Start: 2002 Screening for malignant neoplasm of colon [facility] Start: 2002 SIGMOIDOSCOPY SIGMOIDOSCOPY [facility] Start: 1976 Urine microalbumin profile [facility] Start: 09-22-1975 BP CONTROLLED (<130/80) BP CONTROLLED (<130/80) [facility] Start: 09-22-1975 HIV SCREENING HIV SCREENING [facility] 24 Hour ECG [facility] Work Phone: Acetaminophen [Mass/volume] in Unspecified specimen [facility] Ambulatory ECG [facility] Clostridioides diffi cile toxin genes [Presence] in Stool by ASHLEY with probe detection C. DIFFICILE PCR Lab Routine Diarrhea, unspecified type LLQ pain Chronic RLQ pain Ordered: 03/08/2024 [facility] Comment on above: Ordered: 03/08/2024 End: 04-07-2025 CT Abdomen and Pelvis W contrast IV [facility] Comment on above: 1 Occurrences starting 03/08/2024 until 04/07/2025 End: 01-11-2025 CTA Chest vessels WO and W contrast IV CTA CHEST (NONGATED) WO/W IVCON Radiology STAT Chest pain on breathing 1 Occurrences starting 12/13/2023 until 01/11/2025 [facility] Work Phone: Comment on above: 1 Occurrences starting 12/13/2023 until 01/11/2025 End: 01-11-2025 CTA Pulmonary arteries for pulmonary embolus W contrast IV CT CHEST W IVCON PE Radiology STAT Chest pain on breathing 1 Occurrences starting 12/13/2023 until 01/11/2025 [facility] Work Phone: Comment on above: 1 Occurrences starting 12/13/2023 until 01/11/2025 ENTERIC BACTERIAL PA AUBREE BY PCR ENTERIC BACTERIAL PANEL BY PCR Lab Routine Diarrhea, unspecified type Ordered: 03/08/2024 [facility] Comment on above: Ordered: 03/08/2024 FECAL LACTOFERRIN/LEUKOCYTES FECAL LACTOFERRIN/LEUKOCYTES Lab Routine Diarrhea, unspecified type Ordered: 03/08/2024 [facility] Comment on above: Ordered: 03/08/2024 End: 12-31-2025 Flexible sigmoidoscopy study COLONOSCOPY DIAGNOSTIC Endoscopy Routine Rectal bleeding 1 Occurrences starting 12/31/2024 until 12/31/2025 [facility] Work Phone: Comment on above: 1 Occurrences starting 12/31/2024 until 12/31/2025 Giardia lamblia+Cryptosporidium sp Ag [Presence] in Stool by Immunoassay CRYPTOSPORIDIUM AND GIARDIA ANTIGENS BY EIA Microbiology Routine Diarrhea, unspecified type Ordered: 03/08/2024 [facility] Comment on above: Ordered: 03/08/2024 Magnesium [Mass/volu me] in Serum or Plasma [facility] Heart Views W str ess and W radionuclide IV [facility] Work Phone: NM Heart Views W str ess and W radionuclide IV [facility] Patient Education [facility] Work Phone: Patient referral [facility] Work Phone: Respiratory pathogen s DNA and RNA panel - Respiratory specimen by ASHLEY with probe detection [facility] Work Phone: [facility] End: 07-24-2025 XR Chest PA and Lateral XR CHEST 2V FRONTAL/LAT Radiology Routine Bacterial pneumonia 1 Occurrences starting 06/24/2024 until 07/24/2025 [facility] Work Phone: Comment on above: 1 Occurrences starting 06/24/2024 until 07/24/2025 [facility] Immunizations Immunization Date Immunization Notes Care Provider Mookie morrison 11-29-2023 pneumococcal Conjuga te, unspecified formulation Jagjit Cheema MD Work Phone: [facility] Work Phone: 11-29-2023 pneumococcal conjuga te (PCV20) vaccine, 20 valent (PREVNAR 20) Jagjit Cheema MD Work Phone: [facility] 07-26-2023 COVID-19 vaccine, ag e 12+ yr, season (PFIZER-PlatypiNTImaginatik) Jagjit Cheema MD Work Phone: [facility] 07-26-2023 influenza (HD-IIV4) vaccine, age 65+ yr, high dose, quadrivalent, PF (FLUZONE HIGH-DOSE) Jagjit Cheema MD Work Phone: [facility] 07-26-2023 influenza virus vacc ine, unspecified formulation Jagjit Cheema MD Work Phone: [facility] 05-03-2021 Covid (Pfizer) Dr. Jagjit marcum Work Phone: [facility] 09-14-2020 Covid (Pfizer) Dr. Jagjit marcum Work Phone: [facility] 08-24-2020 Covid (Pfizer) Dr. Jagjit marcum Work Phone: [facility] 07-11-2019 influenza, injectabl e, quadrivalent, preservative free [facility] 07-11-2019 influenza, seasonal, injectable Dr. Jagjit Cheema Work Phone: [facility] 07-11-2019 influenza, seasonal, injectable, preservative free Oliva Gutierrez PA-C Work Phone: [facility] 07-11-2019 influenza virus vacc ine, unspecified formulation Jagjit Cheema MD Work Phone: [facility] 05-01-2015 influenza, injectabl e, quadrivalent, preservative free [facility] 05-01-2015 influenza, seasonal, injectable Dr. Jagjit Cheema Work Phone: [facility] 05-01-2015 influenza, seasonal, injectable, preservative free Oliva SMITHC Work Phone: [facility] 04-29-2015 influenza, seasonal, injectable Oliva Mykeblanc PA-C Work Phone: [facility] 05-20-2013 influenza virus vacc ine, unspecified formulation Oliva Jeanblanc PA-C Work Phone: [facility] 04-19-[address] Jagjit Cheema Work Phone: [facility] 04-19-2013 influenza, seasonal, injectable, preservative free Oliva Mattanblanc PA-C Work Phone: [facility] 04-19-2012 pneumococcal polysaccharide vaccine, 23 valent Oliva Jeanblanc PA-C Work Phone: [facility] 04-19-[address] Apollo bill Marland Work Phone: [facility] Work Phone: 04-19-2012 pneumococcal vaccine , unspecified formulation [facility] 03-18-2011 influenza virus vacc ine, unspecified formulation Oliva Jeanblanc PA-C Work Phone: [facility] Work Phone: 03-18-2011 pneumococcal polysaccharide vaccine, 23 valent Oliva Jeanblanc PA-C Work Phone: [facility] Work Phone: Payers Date Payer Category Payer Self-pay [id number] 2022 [facility] SUPPLE[facility] [id number] 2022 Unknown ANTHEM ANTHEM ME DICARE SUPPLEMENT [id number] 2022-Present [phone] [address] [place] [address] Indemnity [id number] 2022 Unknown [id number] 2022 Medicare [id number] 2022 Medicare [id number] 2019 Private Health Insurance [employer] Emma KOKI PPO [id number] 2019-Present [phone] [address] [place] [address] PPO [id number] 2019 Private Health Insurance [id number] 2013 Private Health Insurance [id number] Unknown [id number] Unknown [id number] Unknown [id number] Unknown [id number] Unknown [id number] Unknown [id number] Unknown [id number] Unknown [id number] Social History Date Type Detail Facility Start: 02-12-2022 End: 03-08-2024 Tobacco smoking status NHIS Ex-smoker [facility] Work Phone: Start: 02-08-1982 End: 02-08-1987 History of tobacco use Current smoker [facility] Start: 02-08-1982 End: 02-08-1987 History of tobacco use Cigarette Smoker [facility] End: 12-03-2017 History of tobacco use Chews Tobacco [facility] Start: 09-04-2021 End: 12-31-2024 Alcohol intake Current drinker of alcohol (finding) [facility] Start: 05-24-2020 End: 09-04-2021 Alcohol intake [facility] Start: 05-04-2016 History SDOH Alcohol Comment rare [facility] Start: 09-06-2013 End: 02-12-2022 Tobacco Comment patient smoked for a few months in 2006 [facility] Start: 1955 Sex Assigned At Not on file [facility] Start: 03-29-2020 End: 12-11-2021 Exposure to SARS-CoV-2 (event) Not sure [facility] Start: 10-20-2021 End: 07-05-2023 Tobacco smoking status NMIS Unknown if ever smoked [facility] Start: 02-29-2020 Occasional [facility] Start: 02-28-2020 None [facility] Start: 02-29-2020 Spouse/ Significant Other [facility] Start: 02-29-2020 Non-smoker [facility] Start: 1955 Sex Assigned At Male [facility] Start: 11-29-2021 History SDOH Alcohol Frequency 98 [facility] Start: 11-29-2021 History SDOH Physical Activity DPW 0 [facility] Start: 11-29-2021 History SDOH Housing Unable to Pay 3 [facility] Start: 04-30-2019 End: 02-12-2022 Tobacco use and exposure User of smokeless tobacco [facility] Work Phone: Start: 12-15-2022 End: 03-08-2024 Tobacco use and exposure Former smokeless tobacco user [facility] Start: 12-19-2022 End: 11-18-2024 Alcohol intake Ex-drinker (finding) [facility] Start: 12-15-2022 Tobacco Comment patient smoked for a few months in 2006Quit chew June 2022 [facility] Start: 05-24-2020 End: 11-29-2021 Social connection and isolation panel [facility] In a typical week, h ow many times do you talk on the telephone with family, friends, or neighbors? Patient refused [facility] Are you now , , , , never or living with a partner? Refused [facility] (I/We) worried wheth er (my/our) food would run out before (I/we) got money to buy more. DK or Refused [facility] Do you belong to any clubs or organizations such as spiritism groups, unions, fraScalIT or athletic groups, or school groups? Yes [facility] Are you now , , , , never or living with a partner? [facility] How often to you hav e a drink containing alcohol? Monthly or less [facility] How many standard dr inks containing alcohol do you have on a typical day? 1 or 2 [facility] How often do you hav e 6 or more drinks on 1 occasion? Never [facility] Do you feel stress - tense, restless, nervous, or anxious, or unable to sleep at night because your mind is troubled all the time - these days [OSQ] Very much [facility] (I/We) worried wheth er (my/our) food would run out before (I/we) got money to buy more. Never true [facility] Start: 12-31-2024 Alcohol Comment occ [facility] Medical Equipment Procedure Code Equipment Code Equipment Original Text Equipment Identifier Dates Pros Penl Ams 70 0 Acc Kt - [id number] Start: 01-29-2015 Pros Penl Ams 70 0ms 18cm - [id number] Start: 01-29-2015 Pros Penl 700cx 3cm Rear Tip - [id number] Start: 01-29-2015 Pros Penl Ams 70 0ms Resvr 65ml - [id number] Start: 01-29-2015 PENILE IMPLANT FDA Start: [...] 6cm Small Collagen Surgical Patch [facility] - [id number] Start: 07-19-2023 PENILE IMPLANT FDA Start: Inject 1 Each intramuscularly one time a week. Uses 4 syringes per month with testosterone injections [id number] Start: 06-11-2019 End: 06-10-2020 PENILE IMPLANT FDA Start: PENILE IMPLANT FDA Start: PENILE IMPLANT FDA Start: PENILE IMPLANT FDA Start: Goals Date Patient Goal Desired Activity /State Functional Status Date Assessment Result Facility 12-16-2022 Functional status Ambulates;Up a d melony;Bathroom Privilege [facility] Work Phone: 01-30-2015 Are you deaf, or do you have serious difficulty hearing No 01/30/2015 8:32 AM Jany NewRn) (Hist), RN No [facility] 01-30-2015 Are you blind, or do you have serious difficulty seeing, even when wearing glasses No 01/30/2015 8:32 AM Jany New) (Hist), RN No [facility] 01-30-2015 Do you have serious difficulty walking or climbing stairs No 01/30/2015 8:32 AM Jany NewRn) (Hist), RN No [facility] 01-30-2015 Do you have difficul ty dressing or bathing No 01/30/2015 8:32 AM Jany NewRn) (Hist), RN No [facility] 01-30-2015 Because of a physica l, mental, or emotional condition, do you have difficulty doing errands alone such as visiting a physician's office or shopping No 01/30/2015 8:32 AM Jany NewRn) (Hist), RN No [facility] Mental Status Date Assessment Result Facility 12-16-2022 Cognitive function Appropriate;Cooperativ e [facility] Work Phone: 12-15-2022 Cognitive function Level Of Cons ciousness Awake;Alert;Appropriate;Fol lows Commands [facility] Work Phone: 12-14-2022 Cognitive function Level Of Cons ciousness Awake;Alert;Appropriate;Fol lows Commands [facility] Work Phone: 05-07-2022 Cognitive function Level Of Cons ciousness Awake;Alert;Appropriate;Fol lows Commands [facility] Work Phone: 02-12-2022 Cognitive function Level Of Cons ciousness Awake;Alert;Appropriate;Fol lows Commands [facility] Work Phone: 01-30-2015 Because of a physica l, mental, or emotional condition, do you have serious difficulty concentrating, remembering, or making decisions No 01/30/2015 8:32 AM Jany NewRn) (Hist), RN No [facility] Clinical Notes 02-08-2007 to 01-20-2025 Telephone Encounter - Isabel Cottrell MA - 01/20/2025 10:37 AM EDTTelephone Encounter - Isabel Cottrell MA - 01/20/2025 10:37 AM Yesica Patino APRN.CANDLE MOLDER - 12/31/2024 8:30 AM EDTPatient Instructions Note Date & Type Note Facility 01-20-2025 Telephone encounter Note See other TE [facility] 01-20-2025 Miscellaneous Notes See other TE documented in this encounter [facility] 12-31-2024 History of Presen t illness Narrative HISTORY AND PHYSICAL Lazaro Garzon : 1955 REFERRING PHYSICIAN: Jagjit Cheema [address] [facility] [address] CHIEF COMPLAINT: Patient presents with: New Patient: [...] disease. >10 years ago Lazaro follows with [facility] for PAF s/p cardioversion (2022) and CAD. Last OV 12/11. Last stress test 12/11 negative for ischemia, EF: 65%. He denies CP, SOB, dizziness, palpitations, syncope, edema, recent hospitalizations Lazaro has sleep apnea c/w CPAP. Lazaro has undergone prior endoscopy. Last EGD & colonoscopy was 11/[address] Bennett at [place]. Sedation: MAC Impression: Medium-sized hiatal hernia, irregular [...] serious comorbidity present 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 Diaphragmatic hernia without [...] Right 1988 LAPS SURG CHOLECYSTECTOMY W/CHOLANGIOGRAPHY 2004 [facility] - Dr. Bales NASAL ENDOS,DIAG,UNI/ BILATERAL 12/01/2024 OPEN REPAIR OF ROTATOR CUFF ACUTE Rotator cuff repair PERCUTANEOUS CORONARY INTERVENTION 2006 stent to LAD REPAIR EPIGASTRIC HERNIA,REDUC 07/19/2023 umbilical TONSILLECTOMY PRIMARY/SECONDARY <AGE 12 Tonsillectomy FAMILY HISTORY Problem Relation Age of Onset Hypertension Mother Heart Mother Stroke Mother Allergies Mother Breast Cancer Mother Heart Father of [place] Allergies Father Allergies Sister Allergies Brother Prostate [...] edited and updated as necessary. Yesica Bacon APRN.CANDLE MOLDER documented in this encounter [facility] 12-31-2024 Note HNO ID: [id number] Author: YESICA BACON APRN.CNP Service: ? Author Type: Nurse Practitioner Type: Progress Notes Filed: 12/31/2024 09:02 Note Text: HISTORY AND PHYSICAL Lazaro Garzon : 1955 REFERRING PHYSICIAN: Jagjit Cheema [address] [facility] [address] CHIEF COMPLAINT: Patient presents with: New Patient: [...] disease. >10 years ago Lazaro follows with [facility] for PAF s/p cardioversion (2022) and CAD. Last OV 12/11. Last stress test 12/11 negative for ischemia, EF: 65%. He denies CP, SOB, dizziness, palpitations, syncope, edema, recent hospitalizations Lazaro has sleep apnea c/w CPAP. Lazaro has undergone prior endoscopy. Last EGD AND colonoscopy was 11/[address] Bennett at [place]. Sedation: MAC Impression: Medium-sized hiatal hernia, irregular [...] serious comorbidity present 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 Diaphragmatic hernia without [...] years COLONOSCOPY 11/17 (more content not included)... [facility] 12-30-2024 Telephone encounter Note Prescription Refill Information [...] Zarate LPN December 30, 2024 3:42 PM [facility] 07-14-2025 Miscellaneous Notes Prescription Refill Information The [...] 2024 3:42 PM documented in this encounter [facility] 12-24-2024 Note HNO ID: [id number] Author: JAGJIT CHEEMA MD Service: ? Author [...] colonoscopy on 12/01/[address] Bennett at [place] revealed diverticuli and poor bowel preparation; recommended [...] Right 1988 LAPS SURG CHOLECYSTECTOMY W/CHOLANGIOGRAPHY 2004 [facility] - D (more content not included)... [facility] 12-24-2024 History of Presen t illness Narrative [...] colonoscopy on 12/01/[address] Bennett at [place] revealed diverticuli and poor bowel preparation; recommended [...] Right 1988 LAPS SURG CHOLECYSTECTOMY W/CHOLANGIOGRAPHY 2004 [facility] - Dr. 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 EPIGASTRIC HERNIA,REDUC 07/19/2023 umbilical TONSILLECTOMY PRIMARY/SECONDARY <AGE 12 Tonsillectomy FAMILY HISTORY Problem Relation Age of Onset Hypertension Mother Heart Mother Stroke Mother Allergies Mother Breast Cancer Mother Heart Father of [place] Allergies Father Asthma Daughter Allergies Sister Allergies [...] colonoscopy on 12/01/[address] Bennett at [place] revealed poor bowel preparation and multiple diverticuli; [...] weight loss. 4. 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 (I25.10) - Recent [...] patient) Jagjit Cheema MD Recording using ambient [employer] software for draft documentation of the visit was discussed with the patient/authorized enrollment representative; all questions welcomed and answered. Patient/authorized enrollment representative agreed to proceed documented in this encounter [facility] 12-24-2024 Telephone encounter Note [facility] Pharmacist calling regarding Wegovy script received today. Pharmacist states order is for 0.25 mg but script directions state to give 0.5 mg. Pharmacist asking if provider could send script for the 0.5 mg? Ni Hewitt RN [facility] 12-24-2024 Miscellaneous Notes [facility] Pharmacist calling regarding Wegovy script received today. Pharmacist states order is for 0.25 mg but script directions state to give 0.5 mg. Pharmacist asking if provider could send script for the 0.5 mg? Ni Hewitt RN documented in this encounter [facility] 12-24-2024 Instructions Jagjit Cheema MD - 12/24/2024 [...] Weigh yourself and send an update via [facility] or call toward the end of the month with your weight change and how you re feeling on the medication. - Schedule a repeat colonoscopy with the general surgery team (Dr. Bales or his partner Dr. Bennett at [place]) as soon as possible, since your last [...] further care steps. documented in this encounter [facility] 11-20-2024 Discharge summary Note Date/Time November 20, 2024 1:37pm [facility] Medical Records Department [address] [place] [address] Emergency Department Summary 11/20/24 MR#: [id number] Acct: [id number] Name: LAZARO GARZON Rep #:[id number] : 1955 69 From: Jose Alberto Contreras [...] or orthopnea. This morning, he called his csr office to make an appointment about this [...] that he has been having a little. [facility] Medical History History of cardioversion [...] disease) Essential hypertension Atherosclerotic heart disease of [place] coronary artery without angina pectoris Confusion Unstable [...] was able to walk to and from [facility] without any significant difficulty here in the [...] 82.7 H Lymph % (Auto) 11.7 L [place] % (Auto) 4.4 Eos % (Auto) 0.2 [...] evidence of acute cardiopulmonary pathology. Reading Location: [id number] Rhythm Strip Rhythm Strip: Sinus Rhythm Rate: [...] KAYLEE for stress appointment time) Print Language: Singaporean Disposition Disposition: Home, Self Care What to do if you have Problems For any increased pain, shortness of breath, bleeding, nausea or vomiting, chestpain, or any unexpected problems, contact your Primary Care Provider. Call [facility] ([phone]) or report to the closest Emergency Room. Call 911 if necessary. 11/20/24 1337 <Electronically signed by Jose Alberto Contreras MD> Cosigner Signature (if applicable): CC: Dr. Jagjit Cheema MD ~ Signed [facility] Work Phone: 1(832) 389-536806-04-2025 Discharge summary [facility] Medical Records Department [address] [place] [address] Emergency Department Summary 11/20/24 MR#: [id number] Acct: [id number] Name: LAZARO GARZON Rep #:[id number] : 1955 69 From: Jose Alberto Contreras [...] or orthopnea. This morning, he called his csr office to make an appointment about this [...] that he has been having a little. [facility] Medical History History of cardioversion [...] disease) Essential hypertension Atherosclerotic heart disease of [place] coronary artery without angina pectoris Confusion Unstable [...] was able to walk to and from [facility] without any significant difficulty here in the [...] 82.7 H Lymph % (Auto) 11.7 L [place] % (Auto) 4.4 Eos % (Auto) 0.2 [...] evidence of acute cardiopulmonary pathology. Reading Location: [facility] Rhythm Strip Rhythm Strip: Sinus Rhythm [...] KAYLEE for stress appointment time) Print Language: Singaporean Disposition Disposition: Home, Self Care What to do if you have Problems For any increased pain, shortness of breath, bleeding, nausea or vomiting, chestpain, or any unexpected problems, contact your Primary Care Provider. Call [facility] ([phone]) or report tothe closest Emergency Room. Call 911 if necessary. 11/20/24 1337 Cosigner Signature (if applicable): CC: Dr. Jagjit Cheema MD ~ Signed [facility]06-04-2025 Radiology Diagnostic study note [facility] Imaging Services [address] [place] [address] Chest PA and Lateral MR#: [id number] Acct: [id number] Name: LAZARO GARZON Rep #: [id number] : 1955 M 69 From: Yahir Noel MD PCP: Dr. Jagjit Cheema MD Status: REG E R Study:Chest PA and Lateral Date of Exam: 11/20/24 Exam# [id number] Ordering Dr: Evan Contreras MD PROCEDURE: CHEST [...] evidence of acute cardiopulmonary pathology. Reading Location: [facility] CC: Dr. Jose Alberto Contreras MD; Dr. Jagjit Cheema MD ~ Batting Machine Operator Insulation: Signed [facility] Work Phone: 1(506) 328-243006-02-2025 History of Present illness Narrative* Faustino Pineda, [...] PATIENT PRESENTS WITH AN IMPLANTABLE OR ATTACHED ETIOLOGIST: No RADIOLOGY DEPARTMENT: General X-ray: Exam(s) Completed: Chest X-Ray PERIPHERAL IV DATA: Not applicable SIGNED BY: RT Mariann(Filippo) November 18, 2024 12:57 PM documented in this encounterSouthwest [facility]06-02-2025 NoteHNO ID: [id number] Author: FAUSTINO PINEDA RT(R) Service: ? Author Type: Dental Office Manager Type: Progress Notes Filed: 11/18/2024 13:05 Note [...] PATIENT PRESENTS WITH AN IMPLANTABLE OR ATTACHED ETIOLOGIST: No RADIOLOGY DEPARTMENT: General X-ray: Exam(s) Completed: Chest X-Ray PERIPHERAL IV DATA: Not applicable SIGNED BY: WILBER Waite) November 18, 2024 12:57 [facility]06-02-2025 NoteHNO ID: [id number] Author: SUSAN KERR APRN.CANDLE MOLDER Service: ? Author Type: Nurse Practitioner Type: [...] Right 1988 LAPS SURG CHOLECYSTECTOMY W/CHOLANGIOGRAPHY 2004 [facility] - Dr. Bales OPEN REPAIR OF ROTATOR [...] Mother Breast Cancer Mother Heart Father of [place] Allergies Father Asthma Daughter Allergies Sister Allergies Brother Allergies Daughter Social History Tobacco Use Smoking status: Former Current packs/day: 0.00 Average packs/day: 2.0 packs/day for 5.0 years (10.0 ttl pk-yrs) Types: Cigarettes Start date: 02/08/1982 Quit date: 02/08/1987 Years [facility] (more content not included)...[facility]06-02-2025 History of Present illness Narrative* Susan Kerr APRN.[facility] - 11/18/2024 12:29 PM EDT This [...] Right 1988 LAPS SURG CHOLECYSTECTOMY W/CHOLANGIOGRAPHY 2004 [facility] - Dr. Bales OPEN REPAIR OF ROTATOR [...] Mother Breast Cancer Mother Heart Father of [place] Allergies Father Asthma Daughter Allergies Sister Allergies [...] worsening/no improvement. Susan Kerr APRN.CNP Recording using Higgle software for draft documentation of the visit was discussed with the patient/authorized enrollment representative; all questions welcomed and answered. Patient/authorized enrollment representative agreed to proceed documented in this encounterSouthwest [facility]06-02-2025 Instructions* Patient Instructions* Susan Kerr APRN.CNP - 11/18/2024 11:55 AM EDT - Get the chest xray. - Begin doxycycline: take one dose twice daily for 10 days. - Begin prednisone: take one tablet once a day for 5 days. - Continue using your albuterol inhaler and Claritin as you have been. Let us know if no improvement/worsening. documented in this encounterSouthwest [facility] Center05-12-2025 Radiology Diagnostic study note [facility] Imaging Services [facility] [address] [place], [place] [id number] Abdomen/Pelvis W IV Cont ONLY MR#: [id number] Acct: [id number] Name: LAZARO GARZON Rep #: [id number] : 1955 M 69 From: Yannick Russ MD PCP: Dr. Jagjit Cheema MD Status: REG E R Study:Abdomen/Pelvis W IV Cont ONLY Date of E xam: 10/28/24 Exam# [id number] Ordering Dr: Duncan Mclaughlin DO PROCEDURE: ABDOMEN/PELVIS [...] lower chance of developing HCC. Reading Location: [id number] CC: Dr. Robby Mclaughlin DO; Dr. Jagjit Cheema MD ~ Batting Machine Operator Insulation: Signed [facility]05-12-2025 Telephone encounter Note* Telephone Encounter - Jagjit Cheema MD - 10/28/2024 8:57 AM EDT agree [facility]05-12[facility]25 Miscellaneous Notes* Telephone Encounter - Jagjit Cheema [...] get a friend to take him to [facility] ER. * Telephone Encounter - Ni Hewitt RN - 10/28/2024 8:14 AM EDT Attempted to call patient for further triage regarding MC message received today. No answer. VM left for pt to call PCP office back as soon as possible. Ni Hewitt RN documented in this encounterSouthwest [facility] Center05-12-2025 Telephone encounter Note * Telephone Encounter - [...] get a friend to take him to [facility] ER. [facility]05-12-2025 Telephone encounter Note* Telephone Encounter - Ni Hewitt RN - 10/28/2024 8:14 AM EDT Attempted to call patient for further triage regarding MC message received today. No answer. VM left for pt to call PCP office back as soon as possible. Ni Hewitt RN [facility]05-05-2025 NoteHNO ID: [id number] Author: JAGJIT CHEEMA MD Service: ? Author [...] Lymph 1.00 - 4.00 k/uL 0.91 (L) [place]% % 9.0 Abs [place] <0.87 k/uL 0.40 Eosin% % 1.4 Abs [...] in 3 yea (more content not included)... [facility]05-05-2025 History of Present illness Narrative* Jagjit Cheema [...] Lymph 1.00 - 4.00 k/uL 0.91 (L) [place]% % 9.0 Abs [place] <0.87 k/uL 0.40 Eosin% % 1.4 Abs [...] Right 1988 LAPS SURG CHOLECYSTECTOMY W/CHOLANGIOGRAPHY 2004 [facility] - Dr. 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 EPIGASTRIC HERNIA,REDUC 07/19/2023 umbilical TONSILLECTOMY PRIMARY/SECONDARY <AGE 12 Tonsillectomy FAMILY HISTORY Problem Relation Age of Onset Hypertension Mother Heart Mother Stroke Mother Allergies Mother Breast Cancer Mother Heart Father of [place] Allergies Father Asthma Daughter Allergies Sister Allergies [...] low. Jagjit Cheema MD documented in this encounterSouthwest [facility] Center04-30-2025 Telephone encounter Note * Telephone Encounter - [...] Zarate LPN October 16, 2024 2:11 PM [facility]04-30-2025 Miscellaneous Notes* Telephone Encounter - Reynaldo Zarate [...] 16, 2024 2:11 PM documented in this encounterSouthwest [facility] Center04-11-2025 Telephone encounter Note * Telephone Encounter - Jagjit Cheema MD - 09/27/2024 9:44 AM EDT Rx sent [facility]04-11-2025 Miscellaneous Notes* Telephone Encounter - Jagjit Cheema [...] Please review if correct. documented in this encounterSouthwest General Health Center04-11-2025 Telephone encounter Note * Telephone Encounter - [...] pend both rx. Please review if correct. [facility]04-07-2025 NoteHNO ID: [id number] Author: JAGJIT CHEEMA MD Service: ? Author [...] Right 1988 LAPS SURG CHOLECYSTECTOMY W/CHOLANGIOGRAPHY 2004 [facility] - Dr. 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 EPIGASTRIC HERNIA,REDUC 07/19/2023 umbilical TONSILLECTOMY PRIMARY/SECONDARY Tonsillectomy FAMILY HISTORY Problem Relation Age of Onset Hypertension Mother Heart Mother Stroke Mother Allergies Mother Breast Cancer Mother Heart Father of [place] Allergies Father Asthma Daughter Allergies Sister Allergies [...] history today. REVIEW OF (more content not included)...[facility]04-07-2025 History of Present illness Narrative* Jagjit Cheema [...] Right 1988 LAPS SURG CHOLECYSTECTOMY W/CHOLANGIOGRAPHY 2004 [facility] - Dr. 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 EPIGASTRIC HERNIA,REDUC 07/19/2023 umbilical TONSILLECTOMY PRIMARY/SECONDARY <AGE 12 Tonsillectomy FAMILY HISTORY Problem Relation Age of Onset Hypertension Mother Heart Mother Stroke Mother Allergies Mother Breast Cancer Mother Heart Father of [place] Allergies Father Asthma Daughter Allergies Sister Allergies [...] one month or prn documented in this encounterSouthwest [facility] Center04-03-2025 Telephone encounter Note * Telephone Encounter - Kira Hassan RN - 09/19/2024 10:27 AM EDT Pt called and is notified of providers message. Pt voices understanding and would like to have an appointment and discuss with Dr Cheema. Pt scheduled 09/23/[address] Cheema. Kira Hassan RN [facility]04-03-2025 Miscellaneous Notes* Telephone Encounter - Kira Hassan [...] 09/18/2024 12:29 PM EDT documented in this encounterSouthwest General Health Center04-03-2025 Telephone encounter Note * Telephone Encounter - [...] Cheema MD on 09/18/2024 12:29 PM EDT [facility]03-[facility]2025 NoteHNO ID: [id number] Author: JAGJIT CHEEMA MD Service: ? Author [...] checked by Dr Ramos, urology. Still seeing [facility]. MEDICATIONS: Current Outpatient Medications Medication [...] Right 1987 LAPS SURG CHOLECYSTECTOMY W/CHOLANGIOGRAPHY 2004 [facility] - Dr. 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 EPIGASTRIC HERNIA,REDUC 07/19/2023 umbilical TONSILLECTOMY PRIMARY/SECONDARY Tonsillectomy FAMILY HISTORY (more content not included)...[facility] 09-11-2024 History of Present illness Narrative* Jagjit [...] occasional cough. Declines work up. Discussed [facility] if worsens. Just had testosterone checked by Dr Ramos, urology. Still seeing [facility]. MEDICATIONS: Current Outpatient Medications Medication [...] Right 1988 LAPS SURG CHOLECYSTECTOMY W/CHOLANGIOGRAPHY 2004 [facility] - Dr. 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 EPIGASTRIC HERNIA,REDUC 07/19/2023 umbilical TONSILLECTOMY PRIMARY/SECONDARY <AGE 12 Tonsillectomy FAMILY HISTORY Problem Relation Age of Onset Hypertension Mother Heart Mother Stroke Mother Allergies Mother Breast Cancer Mother Heart Father of [place] Allergies Father Asthma Daughter Allergies Sister Allergies [...] refill. ASSESSMENT/PLAN: 1. 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- ICD9: 414.01, ICD10: I25.10 (primary diagnosis) - stable. Follow with [facility]. 2. Hyperlipidemia, unspecified hyperlipidemia type [...] rto in six months. documented in this encounterSouthwest General Health Center02-28-2025 Evaluation note* Diagnosis Onset Date Resolution Status Admit Date Atherosclerotic heart diseas e of fl[place]re[place] coronary artery without angina pectoris chronic August 16 10:25am Atrial flutter chronic July 212024 10:25am Essential hypertension chronic 2024 10:25am Pure hypercholesterolemia chronic August 16, 2024 10:25am [facility] Work Phone: 1(610) 319-936002-28-2025 Evaluation note* Diagnosis Onset Date Resolution Status Admit Date Atherosclerotic heart diseas e of [place] coronary artery without angina pectoris chronic August 16 10:25am Atrial flutter chronic July 212024 10:25am Essential hypertension chronic 2024 10:25am Pure hypercholesterolemia chronic August 16, 2024 10:25am Atherosclerotic heart diseas e of [place] coronary artery without angina pectoris chronic November 28, 2024 9:57am Atrial flutter chronic November 28, 2024 9:57am Essential hypertension chronic Ju 2024 9:57am Obesity chronic November 28 9:57am DEENA (obstructive sleep apnea) chroni c November 28, 2024 9:57am Pure hypercholesterolemia chronic November 28, 2024 9:57am [facility] [employer] Work Phone: 1(162) 278-119002-28-2025 Telephone encounter Note* Telephone Encounter - Giselle [...] LUISA Martin August 16, 2024 10:16 AM [facility]02-28-2025 Miscellaneous Notes* Telephone Encounter - Giselle Green [...] 16, 2024 10:16 AM documented in this encounterSouthwest General Health Center01-24-2025 Miscellaneous Notes* Telephone Encounter - Sandy Velez LPN - 07/12/2024 11:35 AM EST Ratna with [facility] called for the last couple office visits to be faxed to them. Identified pt with name and date of . . Ratna looking for mention of c-pap. I did not see anything,. Ratna will look over. Done. Sandy Velez LPN documented in this encounterSouthwest General Health Center01-24-2025 Telephone encounter Note * Telephone Encounter - Sandy Velez LPN - 07/12/2024 11:35 AM EST Ratna with [facility] called for the last couple office visits to be faxed to them. Identified pt with name and date of . . Ratna looking for mention of c-pap. I did not see anything,. Ratna will look over. Done. Sandy Velez LPN [facility]01-20-2025 History of Present illness Narrative* Faustino Pineda [...] PATIENT PRESENTS WITH AN IMPLANTABLE OR ATTACHED ETIOLOGIST: No RADIOLOGY DEPARTMENT: General X-ray: Exam(s) Completed: Chest X-Ray PERIPHERAL IV DATA: Not applicable SIGNED BY: RT Mariann(R) July 08, 2024 10:04 AM documented in this encounterSouthwest General Health Center01-20-2025 NoteHNO ID: [id number] Author: FAUSTINO PINEDA RT(Filippo) Service: ? Author Type: Dental Office Manager Type: Progress Notes Filed: 07/08/2024 10:11 Note [...] PATIENT PRESENTS WITH AN IMPLANTABLE OR ATTACHED ETIOLOGIST: No RADIOLOGY DEPARTMENT: General X-ray: Exam(s) Completed: Chest X-Ray PERIPHERAL IV DATA: Not applicable SIGNED BY: RT Mariann(R) July 08, 2024 10:04 [facility]01-20-2025 NoteHNO ID: [id number] Author: JAGJIT CHEEMA MD Service: ? Author [...] Abs Lymph 1.00 - 4.00 k/uL 1.20 [place]% % 8.1 Abs [place] <0.87 k/uL 0.60 Eosin% % 0.9 Abs [...] Right 1987 LAPS SURG CHOLECYSTECTOMY W/CHOLANGIOGRAPHY 2004 [facility] - Dr. 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 EPIGASTRIC HERNIA,REDUC 07/19/2023 umbilical TONSILLECTOMY PRIMARY/SECONDARY Tonsillectomy FAMILY HISTORY Problem Relation Age of Onset Hypertension Mother Heart Mother Stroke Mother Allergies Mother Breast Cancer Mother Heart Father of [place] Allergies Father Asthma Daughter Allergies Sister Allergies [...] and recommended the followin (more content not included)...[facility]01-20-2025 History of Present illness Narrative* Jagjit Cheema [...] Abs Lymph 1.00 - 4.00 k/uL 1.20 [place]% % 8.1 Abs [place] <0.87 k/uL 0.60 Eosin% % 0.9 Abs [...] Right 1988 LAPS SURG CHOLECYSTECTOMY W/CHOLANGIOGRAPHY 2004 [facility] Gina Bales OPEN REPAIR OF ROTATOR CUFF ACUTE Rotator cuff repair PERCUTANEOUS CORONARY INTERVENTION 2007 stent to LAD REPAIR EPIGASTRIC HERNIA,REDUC 07/19/2023 umbilical TONSILLECTOMY PRIMARY/SECONDARY <AGE 12 Tonsillectomy FAMILY HISTORY Problem Relation Age of Onset Hypertension Mother Heart Mother Stroke Mother Allergies Mother Breast Cancer Mother Heart Father of [place] Allergies Father Asthma Daughter Allergies Sister Allergies [...] above. Jagjit Cheema MD documented in this encounterSouthwest General Health Center01-13-2025 Telephone encounter Note * Telephone Encounter - [...] Cope LPN July 01, 2024 12:28 PM [facility]01-13-2025 Miscellaneous Notes* Telephone Encounter - Fouzia Cope [...] 01, 2024 12:28 PM documented in this encounterSouthwest General Health Center01-07-2025 Telephone encounter Note * Telephone Encounter - Sincere Pickard RN - 06/25/2024 2:47 PM EST Phoned pt and given provider's message below with verbalized understanding. Pt agreeable. [facility]01-07-20[facility] Miscellaneous Notes* Telephone Encounter - Sincere Pickard [...] labs in two weeks. documented in this encounterSouthwest General Health Center01-07-2025 Telephone encounter Note * Telephone Encounter - Jagjit Cheema MD - 06/25/2024 12:37 PM EST If not taking a water pill should not necessarily require constant potassium. Can come from things like diarrhea or vomiting as well. Lets recheck and see what the numbers show [facility]01-[facility] Telephone encounter Note* Telephone Encounter - Jerilyn Henry MA - 06/25/2024 9:52 AM EST Patient informed. He has been taking his potassium faithfully. Has not missed doses. Knows that his numbers have beentrending low. He is wondering if he should increase the potassium? Advised him to repeat labs in two weeks. He verbalized understanding. Jerilyn Henry MA [facility]01-07-2025 Telephone encounter Note* Telephone Encounter - Jagjit Cheema MD - 06/25/2024 8:59 AM EST His labs are overall ok other than potassium is slightly low. Make sure taking his potassium. His sugar is up although that could be residual from his prednisone. Let me know about the potassium . Either way I would recheck labs in two weeks. [facility]01-06-2025 NoteHNO ID: [id number] Author: JAGJIT CHEEMA MD Service: ? Author [...] Right 1988 LAPS SURG CHOLECYSTECTOMY W/CHOLANGIOGRAPHY 2004 [facility] - Dr. 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 EPIGASTRIC HERNIA,REDUC 07/19/2023 umbilical TONSILLECTOMY PRIMARY/SECONDARY Tonsillectomy FAMILY HISTORY Problem Relation Age of Onset Hypertension Mother Heart Mother Stroke Mother Allergies Mother Breast Cancer Mother Heart Father of [place] Allergies Father Asthma Daughter Allergies Sister Allergies [...] social history today. REVI (more content not included)...[facility]01-06-2025 History of Present illness Narrative* Jagjit Cheema [...] Right 1988 LAPS SURG CHOLECYSTECTOMY W/CHOLANGIOGRAPHY 2004 [facility] - Dr. 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 EPIGASTRIC HERNIA,REDUC 07/19/2023 umbilical TONSILLECTOMY PRIMARY/SECONDARY <AGE 12 Tonsillectomy FAMILY HISTORY Problem Relation Age of Onset Hypertension Mother Heart Mother Stroke Mother Allergies Mother Breast Cancer Mother Heart Father of [place] Allergies Father Asthma Daughter Allergies Sister Allergies [...] two weeks or prn documented in this encounterSouthwest General Health Center12-30-2024 Telephone encounter Note * Telephone Encounter - Brandie Lange LPN - 06/17/2024 4:01 PM EST Patient notified. [facility] Miscellaneous Notes* Telephone Encounter - Brandie Lange [...] if worsen at all. documented in this encounterSouthwest General Health Center12-30-2024 Telephone encounter Note * Telephone Encounter - Jagjit Cheema MD - 06/17/2024 3:43 PM EST ?? Shows small pneumonia on left. Doxycycline should cover. Follow up with one of us next week. Use albuterol and prednisone Can add amoxil to be on the safe side to his doxy. Take both. Call if worsen at all. [facility] History of Present illness Narrative* Faustino Pineda [...] PATIENT PRESENTS WITH AN IMPLANTABLE OR ATTACHED ETIOLOGIST: No RADIOLOGY DEPARTMENT: General X-ray: Exam(s) Completed: Chest X-Ray PERIPHERAL IV DATA: Not applicable SIGNED BY: RT Mariann(Filippo) June 17, 2024 3:08 PM documented in this encounterSouthwest General Health Center12-30-2024 NoteHNO ID: [id number] Author: FAUSTINO PINEDA RT(R) Service: ? Author Type: Dental Office Manager Type: Progress Notes Filed: 06/17/2024 15:14 Note [...] PATIENT PRESENTS WITH AN IMPLANTABLE OR ATTACHED ETIOLOGIST: No RADIOLOGY DEPARTMENT: General X-ray: Exam(s) Completed: Chest X-Ray PERIPHERAL IV DATA: Not applicable SIGNED BY: RT Mariann(R) June 17, 2024 3:08 [facility]12-30-2024 NoteHNO ID: [id number] Author: JAGJIT CHEEMA MD Service: ? Author [...] Right 1988 LAPS SURG CHOLECYSTECTOMY W/CHOLANGIOGRAPHY 2004 [facility] - Dr. 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 EPIGASTRIC HERNIA,REDUC 07/19/2023 umbilical TONSILLECTOMY PRIMARY/SECONDARY Tonsillectomy FAMILY HISTORY Problem Relation Age of Onset Hypertension Mother Heart Mother Stroke Mother Allergies Mother Breast Cancer Mother Heart Father of [place] Allergies Father Asthma Daughter Allergies Sister Allergies Brother Allergies Daughter Social History Tobacco Use Smoking status: Former Current packs/day: 0.00 Average packs/day: 2.0 packs/day for 5.0 years (10.0 ttl pk-yrs) Types: Cigarettes Start date: 02/08/1982 Quit date: 02/08/1987 Years since quittin.3 Smokeless tobacco: Former Types: Chew Quit date: 12/03/2017 Tobacco comments: patient smoked for (more content not included)...[facility] 06-17-2024 History of Present illness Narrative* Jagjit [...] Right 1988 LAPS SURG CHOLECYSTECTOMY W/CHOLANGIOGRAPHY 2004 [facility] - Dr. 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 EPIGASTRIC HERNIA,REDUC 07/19/2023 umbilical TONSILLECTOMY PRIMARY/SECONDARY <AGE 12 Tonsillectomy FAMILY HISTORY Problem Relation Age of Onset Hypertension Mother Heart Mother Stroke Mother Allergies Mother Breast Cancer Mother Heart Father of [place] Allergies Father Asthma Daughter Allergies Sister Allergies [...] plan. Jagjit Cheema MD documented in this encounterSouth[facility]12-30-2024 Telephone encounter Note * Telephone Encounter - Brandie Lange LPN - 06/17/2024 11:51 AM EST Scheduled. [facility]12-30-2024 Miscellaneous Notes* Telephone Encounter - Brandie Lange [...] 17, 2024 10:42 AM documented in this encounterSouthwest [facility] Center12-30-2024 Telephone encounter Note * Telephone Encounter - Jagjit Cheema MD - 06/17/2024 11:27 AM EST Needs to see one of us if that bad [facility]12-30-2024 Telephone encounter Note* Telephone Encounter - Brandie Lange LPN - 06/17/2024 11:04 AM EST He was seen in 06/13 and treated with Doxy. [facility]12-30-2024 Telephone encounter Note* Telephone Encounter - Radha Lawson - 06/17/2024 10:41 AM EST Patient calling in to request an order for an xray of his chest. He feels his cold going into his chest and has concerns of pneumonia. Please review and advise patient, okay to leave detailed message. Radha Lawson June 17, 2024 10:42 AM [facility]12-26-2024 NoteHNO ID: [id number] Author: CAROLANN LUCAS APRN.CANDLE MOLDER Service: ? Author Type: Nurse Practitioner Type: Progress Notes Filed: 06/13/2024 16:18 Note Text: Subjective The history is provided by the patient. No high school foreign language teacher was used. JOHNATHON Garzon is a 68 [...] have confirmed and edited as necessary, the [facility] Review of Systems Constitutional: Negative [...] detail warranting prompt ER evaluation. Carolann Lucas APRN.[facility]12-26-2024 History of Present illness Narrative* Carolann Lucas APRN.CANDLE MOLDER - 06/13/2024 4:02 PM EST Subjective The history is provided by the patient. No high school foreign language teacher was used. JOHNATHON Garzon is a 68 [...] have confirmed and edited as necessary, the [facility] Review of Systems Constitutional: Negative [...] indetail warranting prompt ER evaluation. Carolann Lucas APRN.CANDLE MOLDER documented in this encounterSouthwest [facility] Center11-08-2024 Telephone encounter Note * Telephone Encounter - Sincere Pickard RN - 04/26/2024 12:39 PM EST Spoke with Amanda at [facility] Main lab, who states they will be able to add the hgba1c with the blood collected yesterday. [facility]11-08-2024 Miscellaneous Notes* Telephone Encounter - Sincere Pickard RN - 04/26/2024 12:39 PM EST Spoke with Amanda at [facility] Main lab, who states they will be able to add the hgba1c with the blood collected yesterday. * Telephone Encounter - Lisa Javed APRN.CNP - 04/26/2024 10:21 AM EST Please see if lab can add on A1c. His blood sugar was elevated- if not he will need to come back in. Lisa Javed APRN.ROSITA documented in this encounterSouthwest General Health Center11-08-2024 Telephone encounter Note * Telephone Encounter - Lisa Javed APRN.CNP - 04/26/2024 10:21 AM EST Please see if lab can add on A1c. His blood sugar was elevated- if not he will need to come back in. Lisa Javed APRN.CNP [facility]11-07-[facility]24 History of Present illness Narrative* Terell Cueto [...] PATIENT PRESENTS WITH AN IMPLANTABLE OR ATTACHED ETIOLOGIST: No RADIOLOGY DEPARTMENT: General X-ray: Exam(s) Completed: Chest X-Ray PERIPHERAL IV DATA: Not applicable SIGNED BY: RT Buster(Filippo) April 25, 2024 2:05 PM documented in this encounterSouthwest General Health Center11-07-2024 NoteHNO ID: [id number] Author: TERELL CUETO RT(R) Service: Radiology Author [...] PATIENT PRESENTS WITH AN IMPLANTABLE OR ATTACHED ETIOLOGIST: No RADIOLOGY DEPARTMENT: General X-ray: Exam(s) Completed: Chest X-Ray PERIPHERAL IV DATA: Not applicable SIGNED BY: RT Buster(Filippo) April 25, 2024 2:05 [facility]11-07-2024 NoteHNO ID: [id number] Author: LISA JAVED APRN.CANDLE MOLDER Service: ? Author Type: Nurse Practitioner Type: Progress Notes Filed: 04/25/2024 14:07 Note Text: 04/25/2024 Patient presents with: Dizziness: X 1 week SUBJECTIVE: This is a 68 year old that is here today for Above Complaints. For the last week has had dizziness. Described as wearing bifocals and trying to walk down the stairs. Marana like he was spinning around this morning. [...] Normal gait SKIN Sk (more content not included)...[facility]11-07-2024 History of Present illness Narrative* Lisa Javed APRN.ROSITA - 04/25/2024 1:21 PM EST 04/25/2024 Patient presents with: Dizziness: X 1 week SUBJECTIVE: This is a 68 year old that is here today for Above Complaints. For the last week has had dizziness. Described as wearing bifocals and trying to walk down the stairs. Marana like he was spinning around this morning. [...] suspicious rashes or lesions to exposed skin [place]: Horizontal, torsional and up beating nystagmus elicited [...] ER with red flag symptoms Lisa Javed APRN.CANDLE MOLDER Prescription instructions reviewed with patient as applicable. [...] Level: 4 - Moderate documented in this encounterSouthwest General Health Center11-07-2024 Telephone encounter Note * Telephone Encounter - [...] has NOT been evaluated by doctor (or TECHNOLOGY DIRECTOR/PA) for this (Exception: Dizziness caused by heat [...] in sweat; fatigue Protocols used: Dizziness - Jqkosotcxybltil-HLPRU-IU [facility]11-07-2024 Miscellaneous Notes* Telephone Encounter - Allison Tavares [...] has NOT been evaluated by doctor (or TECHNOLOGY DIRECTOR/PA) for this (Exception: Dizziness caused by heat [...] in sweat; fatigue Protocols used: Dizziness - Jsxuwetulgcsprp-VSHAD-IA documented in this encounterSouthwest General Health Center10-23-2024 History of Present illness Narrative* Rojas Dominguez [...] Right 1988 LAPS SURG CHOLECYSTECTOMY W/CHOLANGIOGRAPHY 2004 [facility] - Dr. 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 EPIGASTRIC HERNIA,REDUC 07/19/2023 umbilical TONSILLECTOMY PRIMARY/SECONDARY <AGE 12 Tonsillectomy Family History FAMILY HISTORY Problem Relation Age of Onset Hypertension Mother Heart Mother Stroke Mother Allergies Mother Breast Cancer Mother Heart Father of [place] Allergies Father Asthma Daughter Allergies Sister Allergies [...] TABLET Rojas Dominguez MD documented in this encounterSouthwest General Health Center10-23-2024 NoteHNO ID: [id number] Author: ROJAS DOMINGUEZ MD Service: ? Author [...] Right 1988 LAPS SURG CHOLECYSTECTOMY W/CHOLANGIOGRAPHY 2004 [facility] - Dr. 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 EPIGASTRIC HERNIA,REDUC 07/19/2023 umbilical TONSILLECTOMY PRIMARY/SECONDARY Tonsillectomy Family History FAMILY HISTORY Problem Relation Age of Onset Hypertension Mother Heart Mother Stroke Mother Allergies Mother Breast Cancer Mother Heart Father [place] Allergies Father Asthma Daughter Allergies Sister Allergies [...] y/o Review of Symp (more content not included)...[facility] 03-13-2024 NoteHNO ID: [id number] Author: JAGJIT CHEEMA MD Service: ? Author [...] Lymph 1.00 - 4.00 k/uL 0.82 (L) [place]% % 7.5 Abs [place] <0.87 k/uL 0.31 E[place]% % 1.4 Abs [...] 07/20/2016 MAC COLONOSCOPY 01/25/20 (more content not included)...[facility] 03-13-2024 History of Present illness Narrative* Jagjit [...] Lymph 1.00 - 4.00 k/uL 0.82 (L) [place]% % 7.5 Abs [place] <0.87 k/uL 0.31 Eosin% % 1.4 Abs [...] Right 1988 LAPS SURG CHOLECYSTECTOMY W/CHOLANGIOGRAPHY 2004 [facility] - Dr. 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 EPIGASTRIC HERNIA,REDUC 07/19/2023 umbilical TONSILLECTOMY PRIMARY/SECONDARY <AGE 12 Tonsillectomy FAMILY HISTORY Problem Relation Age of Onset Hypertension Mother Heart Mother Stroke Mother Allergies Mother Breast Cancer Mother Heart Father of [place] Allergies Father Asthma Daughter Allergies Sister Allergies [...] stable. Jagjit Cheema MD documented in this encounterSouthwest General Health Center09-20-2024 Telephone encounter Note * Telephone Encounter - Asuncion Robertson LPN - 03/08/2024 4:41 PM EDT Phoned patient and went over results, notes from Dr Cheema with understanding. Patient will take 2 tablets of potassium with supper tonight and keep his appt on Monday. [facility]09-[facility] Miscellaneous Notes* Telephone Encounter - Asuncion Robertson [...] No signs of diverticulitis. documented in this encounterSouthwest General Health Center09-20-2024 Telephone encounter Note * Telephone Encounter - Jagjit Cheema MD - 03/08/2024 4:[address] was ok. Potassium was slightly low. I have him taking potassium. Can take an extra dose today, keep follow up next week. No signs of diverticulitis. [facility]09-[facility] History of Present illness Narrative* Fanny Singh, [...] PATIENT PRESENTS WITH AN IMPLANTABLE OR ATTACHED ETIOLOGIST: No ALLERGIES: Reviewed and unchanged CONTRAST ALLERGY: [...] 2024 TIME: 4:02 PM documented in this encounterSouthwest General Health Center09-20-2024 NoteHNO ID: [id number] Author: FANNY SINGH RT(R) Service: Radiology Author [...] PATIENT PRESENTS WITH AN IMPLANTABLE OR ATTACHED ETIOLOGIST: No ALLERGIES: Reviewed and unchanged CONTRAST ALLERGY: [...] Garzon DATE: March 08, 2024 TIME: 4:02 [facility]09-20-2024 NoteHNO ID: [id number] Author: JAGJIT CHEEMA MD Service: ? Author [...] his focus and finish sentences Still seeing [facility]. Still on adrogen therapy per [...] Right 1988 LAPS SURG CHOLECYSTECTOMY W/CHOLANGIOGRAPHY 2004 [facility] - Dr. Bales OPEN REPAIR OF ROTATOR CUFF ACUTE Rotator cuff repair PERCUTANEOUS CORONARY INTERVENTION 2007 stent to LAD REPAIR EPIGASTRIC HERNIA,REDUC 07/19/2023 umbilical TONSILLECTOMY PRIMARY/SECONDARY Tonsillectomy FAMILY HISTORY Problem Relation Age of Onset Hypertension Mother Heart Mother Stroke Mother Allergies Mother Breast Cancer Mother Heart Father of [place] Allergies Father Asthma Daughter Allergies Sister Allergies Brother Allergies Daughter Social History Tobacco Use Smoking status: Former Current packs/day: 0.00 Average packs/day: 2.0 packs/day for 5.0 years (10.0 ttl pk-yrs) Types: Cigarettes Start date: 02/08/1982 Quit date: 02/08/1987 Years since quittin.1 Smokeless tobacco: Former Types: Chew Quit date: 12/03/2017 (more content not included)...[facility] 03-08-2024 History of Present illness Narrative* Jagjit [...] Right 1988 LAPS SURG CHOLECYSTECTOMY W/CHOLANGIOGRAPHY 2004 [facility] - Dr. 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 EPIGASTRIC HERNIA,REDUC 07/19/2023 umbilical TONSILLECTOMY PRIMARY/SECONDARY <AGE 14 Tonsillectomy FAMILY HISTORY Problem Relation Age of Onset Hypertension Mother Heart Mother Stroke Mother Allergies Mother Breast Cancer Mother Heart Father [place] Allergies Father Asthma Daughter Allergies Sister Allergies [...] tenderness ASSESSMENT/PLAN: 1. 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 2. Hyperlipidemia, unspecified hyperlipidemia type [...] RTO early next weeks. documented in this encounterSouthwest General Health Center07-23-2024 Instructions* Patient Instructions* Beverley Gutierrez APRN.CNP - 01/09/2024 3:52 PM EDT 1) Paxlovid ordered 2) Hold atorvastatin while on medication 3) Rest & plenty of fluids 4) See Susan 01/26/24 documented in this encounterSouthwest General Health Center07-23-2024 NoteHNO ID: [id number] Author: BEVERLEY GUTIERREZ APRN.CNP Service: ? Author Type: Clinical Nurse Specialist Type: Progress Notes Filed: 01/09/2024 15:53 Note Text: This Team Access Model visit is a phone encounter. It required patient-provider interaction for the medical decision making as documented below. Chief Reason For Appointment No chief complaint on file. Ecbxjm-pb-gzb and people from was sick. Lazaro Garzon [...] - 12/25/2013 Comment: 02/29/20 admit ED to [facility] chest pain,HUGGINS . EKG no changes. Stopped [...] Right 1988 LAPS SURG CHOLECYSTECTOMY W/CHOLANGIOGRAPHY 2004 [facility] - Dr. Bales OPEN REPAIR OF ROTATOR [...] No current facility-administered medicat (more content not included)...[facility]07-23-2024 History of Present illness Narrative* Beverley Gutierrez APRN.ROSITA - 01/09/2024 3:40 PM EDT This Team Access Model visit is a phone encounter. It required patient-provider interaction for themedical decision making as documented below. Chief Reason For Appointment No chief complaint on file. Elwnkh-fh-icm and people from was sick. Lazaro Garzon [...] - 12/25/2013 Comment: 02/29/20 admit ED to [facility] chest pain,HUGGINS . EKG no changes. Stopped [...] Right 1988 LAPS SURG CHOLECYSTECTOMY W/CHOLANGIOGRAPHY 2004 [facility] - Dr. Bales OPEN REPAIR OF ROTATOR [...] after confirming email address documented in this encounterSouthwest General Health Center07-12-2024 History of Present illness Narrative* Jagjit Cheema [...] Right 1988 LAPS SURG CHOLECYSTECTOMY W/CHOLANGIOGRAPHY 2004 [facility] - Dr. 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 EPIGASTRIC HERNIA,REDUC 07/19/2023 umbilical TONSILLECTOMY PRIMARY/SECONDARY <AGE 12 Tonsillectomy FAMILY HISTORY Problem Relation Age of Onset Hypertension Mother Heart Mother Stroke Mother Allergies Mother Breast Cancer Mother Heart Father of [place] Allergies Father Asthma Daughter Allergies Sister Allergies [...] RTO in one month documented in this encounterSouthwest General Health Center06-26-2024 Telephone encounter Note * Telephone Encounter - Sara Maria LPN - 12/13/2023 4:08 PM EDT Pt notified of results & all instructions, pt voiced understanding. Sara Maria LPN [facility]06-26-2024 Miscellaneous Notes* Telephone Encounter - Sara Maria [...] - 12/13/2023 12:29 PM EDT Dyana with [facility] hospital calls to request order be changed to CT A Chest with and without contrast. Couldn't find that order to pend. Requests order be faxed back to [phone]. Brenda Louis RN * Telephone Encounter - Reynaldo Zarate LPN - 12/13/2023 11:26 AM EDT Phoned [facility], order faxed. Pt can be scanned as soon as possible. Reynaldo Zarate LPN * Telephone Encounter - Susan Kerr APRN.ROSITA - 12/13/2023 11:01 AM EDT Pt schedule for stat CT at [place] at 3:00. Can we see if [facility] has anything sooner? Susan Kerr APRN.ROSITA documented in this encounterSouthwest General Health Center06-26-2024 Telephone encounter Note * Telephone Encounter - [...] to the ER with any severe symptoms. [facility]06-[facility] Telephone encounter Note* Telephone Encounter - Reynaldo Zarate LPN - 12/13/2023 1:09 PM EDT Order faxed. Will leave encounter open until results recieved. Reynaldo Zarate LPN [facility]06-26-2024 Telephone encounter Note* Telephone Encounter - Susan Kerr APRN.CNP - 12/13/2023 12:45 PM EDT Order placed. Please fax, as requested. [facility]06-[facility] Telephone encounter Note* Telephone Encounter - Brenda Louis RN - 12/13/2023 12:29 PM EDT Dyana with [facility] hospital calls to request order be changed to CT A Chest with and without contrast. Couldn't find that order to pend. Requests order be faxed back to [phone]. Brenda Louis RN [facility]06-26-20[facility] Telephone encounter Note* Telephone Encounter - Reynaldo Zarate LPN - 12/13/2023 11:26 AM EDT Phoned [facility], order faxed. Pt can be scanned as soon as possible. Reynaldo Zarate LPN [facility]06-26-20[facility] Telephone encounter Note* Telephone Encounter - Susan Kerr APRN.CNP - 12/13/2023 11:01 AM EDT Pt schedule for stat CT at [place] at 3:00. Can we see if [facility] has anything sooner? Susan Kerr APRN.ROSITA [facility]06-26-2024 Instructions* Patient Instructions* Susan Kerr APRN.CNP - 12/13/2023 10:08 AM EDT Get stat CT documented in this encounterSouthwest General Health Center06-26-2024 History of Present illness Narrative* Susan Kerr [...] and changing CPAP tubing driving up to [place], really hot, 'everything went black', pt lowered [...] X 2. Hx of pneumonia. Traveled to [place] a couple of weeks ago. No fevers/chills Body aches Dizziness Nausea and vomiting last week but nothing now Constipation, abdomen tenderness Wears CPAP at night Recent travel to [place] a few weeks ago Recently had pneumonia [...] Right 1988 LAPS SURG CHOLECYSTECTOMY W/CHOLANGIOGRAPHY 2004 [facility] - Dr. Bales OPEN REPAIR OF ROTATOR [...] Mother Breast Cancer Mother Heart Father of [place] Allergies Father Asthma Daughter Allergies Sister Allergies [...] agrees with the plan. documented in this encounterSouthwest General Health Center06-14-2024 Telephone encounter Note * Telephone Encounter - Dionisio Chavez LPN - 12/01/2023 11:49 AM EDT Patient Produce Runhart message requesting the following refill Refill(s) Requested: Requested Prescriptions Pending Prescriptions Disp Refills potassium chloride (K-TAB) 10 mEq tablet 180 tablet 1 Sig: Take 2 tablets by mouth once daily. ALLERGIES Allergen Reactions Sulfa (Sulfonamide * Rash (home) [phone] (cell) Last Office Visit Date: 11/29/2023 Last Distance Health Visit: 10/25/2023 Future Appointment: 12/22/2023 The patients preferred pharmacy has been captured for this encounter? yes Request is for script(s) to be escript to pharmacy. Dionisio Chavez LPN [facility]06-14-2024 Miscellaneous Notes* Telephone Encounter - Dionisio Chavez LPN - 12/01/2023 11:49 AM EDT Patient Produce Runhart message requesting the following refill Refill(s) Requested: Requested Prescriptions Pending Prescriptions Disp Refills potassium chloride (K-TAB) 10 mEq tablet 180 tablet 1 Sig: Take 2 tablets by mouth once daily. ALLERGIES Allergen Reactions Sulfa (Sulfonamide * Rash (home) [phone] (cell) Last Office Visit Date: 11/29/2023 Last [facility] Visit: 10/25/2023 Future Appointment: 12/22/2023 The patients preferred pharmacy has been captured for this encounter? yes Request is for script(s) to be escript to pharmacy. Dionisio Chavez LPN documented in this encounterSouthwest General Health Center06-12-2024 History of Present illness Narrative* Jagjit Cheema [...] Right 1988 LAPS SURG CHOLECYSTECTOMY W/CHOLANGIOGRAPHY 2004 [facility] - Dr. 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 EPIGASTRIC HERNIA,REDUC 07/19/2023 umbilical TONSILLECTOMY PRIMARY/SECONDARY <AGE 12 Tonsillectomy FAMILY HISTORY Problem Relation Age of Onset Hypertension Mother Heart Mother Stroke Mother Allergies Mother Breast Cancer Mother Heart Father of [place] Allergies Father Asthma Daughter Allergies Sister Allergies [...] 20) Jagjit Cheema MD documented in this encounterSouthwest General Health Center05-08-2024 History of Present illness Narrative* Jagjit Cheema [...] visit. Either the patient or their legal enrollment representative has been informed of the risks [...] Right 1988 LAPS SURG CHOLECYSTECTOMY W/CHOLANGIOGRAPHY 2004 [facility] - Dr. 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 EPIGASTRIC HERNIA,REDUC 07/19/2023 umbilical TONSILLECTOMY PRIMARY/SECONDARY <AGE 12 Tonsillectomy FAMILY HISTORY Problem Relation Age of Onset Hypertension Mother Heart Mother Stroke Mother Allergies Mother Breast Cancer Mother Heart Father of [place] Allergies Father Asthma Daughter Allergies Sister Allergies [...] with more than 50% of the total pyya-cb-wbtf time of the visit in counseling / coordination of care. documented in this encounterSouthwest General Health Center03-21-2024 Miscellaneous Notes* Telephone Encounter - Jagjit Cheema MD - 09/07/2023 7:57 AM EDT Labs are stable other than sugar being up. Recheck A1c. documented in this encounterSouthwest General Health Center03-19-2024 History of Present illness Narrative* Jagjit Cheema [...] Right 1988 LAPS SURG CHOLECYSTECTOMY W/CHOLANGIOGRAPHY 2004 [facility] - Dr. 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 EPIGASTRIC HERNIA,REDUC 07/19/2023 umbilical TONSILLECTOMY PRIMARY/SECONDARY <AGE 12 Tonsillectomy FAMILY HISTORY Problem Relation Age of Onset Hypertension Mother Heart Mother Stroke Mother Allergies Mother Breast Cancer Mother Heart Father of [place] Allergies Father Asthma Daughter Allergies Sister Allergies [...] TESTOSTERONE TOTAL 3. 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- ICD9: 414.01, ICD10: [...] BLD Jagjit Cheema MD documented in this encounterSouthwest General Health Center03-18-2024 Miscellaneous Notes* Telephone Encounter - Beverley Cruz [...] you. Beverley Cruz LPN. documented in this encounterSouthwest General Health Center02-07-2024 History of Past illness Narrative* Problem Noted [...] of this encounter (statuses as of 09/05/2023) [facility] History of Past illness Narrative* Problem Noted [...] of this encounter (statuses as of 09/06/2023) [facility] History of Past illness Narrative* Problem Noted [...] of this encounter (statuses as of 09/07/2023) [facility]01-[facility]24 NoteHNO ID: [id number] Author: MISTY JACKSON APRN.LOSS CONTROL TECHNICIAN Service: Anesthesiology Author Type: Nurse Strapping Machine Operator Type: Anesthesia Procedure Notes Filed: 07/19/2023 09:22 Note Text: ANESTHESIOLOGY PROCEDURE NOTE Airway General Information Procedure Start Time/Medication Administration: 07/19/2023 9:07 AM Patient location during procedure: OR Timeout Performed Pre-procedure: timeout performed Consent Obtained: Yes 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 Staffing LOSS CONTROL TECHNICIAN: Misty Jackson APRN.LOSS CONTROL TECHNICIAN Performed by: LOSS CONTROL TECHNICIAN Indications and Patient Condition Indications for [...] and doubled bath blanket SIGNATURE: Misty Jackson APRN.LOSS CONTROL TECHNICIAN PATIENT NAME: Lazaro Garzon DATE: July 19, 2023 TIME: 9:21 AM CSN: [id number] Telephone encounter Note* Telephone Encounter - Omaira Gallegos - 06/30/2023 11:00 AM EST 07/19/2023 UMBILICAL HERNIA REPAIR FORD [facility]01-12-2024 Miscellaneous Notes* Telephone Encounter - Omaira Gallegos - 06/30/2023 11:00 AM EST 07/19/2023 UMBILICAL HERNIA REPAIR FORD documented in this encounterSouthwest General Health Center12-21-2023 Miscellaneous Notes* Telephone Encounter - Beverley Cruz [...] you. Beverley Cruz LPN. documented in this encounterSouthwest General Health Center12-04-2023 Discharge summary Author Vivian Mcintyre [facility] May 22, 2023 1:02pm Note Date/Time May 22, 2023 1 :02pm [facility] Physical Therapy [facility] [address] [place] [address] / REHABILITATION SERVICES DISCHARGE SUMMARY MR#: [id number] Acct: [id number] Name: LAZARO GARZON Rep #: [id number] : 1955 67 From: Vivian Mcintyre PT, Cert. MDT Referring Dr.: [facility] Status: REG RCR Insurance: MEDICARE PART A B [facility] Discharge Summary D/C summary: It has been [...] please feel free to call me at [phone]. Thank you for the referral of thispatient. Sincerely, Vivian Mcintyre, PT, Cert MDT Balance/Gait/Functional tests Balance/Special Test Scores Lower Extremity Functional Score: 76 <Electronically signed by Vivian Mcintyre PT Cert. MDT> 05/22/23 1302 CC: Dr. Jagjit Cheema MD; ARVIND TELLEZ ~ SIVAN Signed [facility] Work Phone: 1(645) 335-128210-16-2023 History of Present illness Narrative* Shannon Vázquez, [...] 03, 2023 10:58 AM documented in this encounterSouthwest General Health Center08-07-2023 History of Present illness Narrative* Jagjit Cheema [...] Right 1988 LAPS SURG CHOLECYSTECTOMY W/CHOLANGIOGRAPHY 2004 [facility] - Dr. Bales OPEN REPAIR OF ROTATOR CUFF ACUTE Rotator cuff repair PERCUTANEOUS CORONARY INTERVENTION 2006 stent to LAD TONSILLECTOMY PRIMARY/SECONDARY <AGE 12 Tonsillectomy FAMILY HISTORY Problem Relation Age of Onset Hypertension Mother Heart Mother Stroke Mother Allergies Mother Breast Cancer Mother Heart Father of [place] Allergies Father Asthma Daughter Allergies Sister Allergies [...] MG TABLET 6. 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- ICD9: 414.01, ICD10: I25.10 - stable. Jagjit Cheema MD documented in this encounterSouthwest General Health Center07-18-2023 Miscellaneous Notes* Telephone Encounter - Vee Weinberg LPCC - 01/03/2023 2:36 PM EDT Behavioral Health Social Work Progress Note Patient identified for [facility] from: PCP Reason for referral: Resources Behavioral Health Resources: Psychology - talk therapy [facility] encounter type: Telephone Encounter Attempts to Outreach: 1 attempt Referral made: Psychology - Internal, Psychology - External Psychology-Internal referral type: Therapy Psychology-External referral type: Therapy Patient Discharged?: No Phone call placed today that went to [employer]. Left my contact information and brief nature of call. Initial outreach also completed via [facility] sending list of in network providers with insurance. AARON Zuñiga-S January 03, 2023 documented in this encounterSouthwest General Health Center07-06-2023 Miscellaneous Notes* Telephone Encounter - Beverley Cruz [...] you. Beverley Cruz LPN documented in this encounterSouthwest General Health Center07-03-2023 History of Present illness Narrative* Jagjit Cheema [...] showed mild hypokalemia and leukocytosis. Went back [facility] on 12/15/22 with a 104 temp. Admitted. [...] Right 1988 LAPS SURG CHOLECYSTECTOMY W/CHOLANGIOGRAPHY 2004 [facility] - Dr. Bales OPEN REPAIR OF ROTATOR CUFF ACUTE Rotator cuff repair PERCUTANEOUS CORONARY INTERVENTION 2007 stent to LAD TONSILLECTOMY PRIMARY/SECONDARY <AGE 12 Tonsillectomy FAMILY HISTORY Problem Relation Age of Onset Hypertension Mother Heart Mother Stroke Mother Allergies Mother Breast Cancer Mother Heart Father of [place] Allergies Father Asthma Daughter Allergies Sister Allergies [...] DIFF Jagjit Cheema MD documented in this encounterSouthwest General Health Center06-30-2023 Discharge summary Author Nahum Dias [facility] December 16, 2022 1:25am Note Date/Time December 15, 2022 7:31 pm [facility] Medical Records Department [address] [place] [address] Emergency Department Summary 12/15/22 MR#: [id number] Acct: [id number] Name: LAZARO GARZON Rep #:[id number] : 1955 67 From: Nahum Bagley PCP: Dr. Jagjit Cheema MD Status:ADM I N Location: [place] [address]-1 HPI History of Present Illness Chief Complaint: [...] his chest when he takes deep breaths. [facility] Medical History Abnormal myocardial perfusion study Abnormal stress test Acute pyelonephritis Atherosclerotic heart disease of flandreau coronary artery without angina pectoris BPH (benign prostatic hyperplasia) Claudication Confusion Dyspnea on exertion Essential hypertension Fibromyalgia GERD (gastroesophageal reflux disease) H/O percutaneous transluminal coronary angioplasty History of shingles HTN (hypertension) Obesity DEENA (obstructive sleep apnea) Prostate enlargement Pulmonary embolism Pure hypercholesterolemia Rectal bleeding Testosterone deficiency TIA (transient ischemic attack) Unstable angina UTI (urinary tract infection) Home Medications multivitamin,qp-owhu-cklyjwnw 27 mg-0.4 mg tablet 1 tab PO [...] 90.2 H Lymph % (Auto) 4.4 L [place] % (Auto) 4.0 Eos % (Auto) 0.7 [...] 81 mg PO DAILY Qty: 90 0RF multivitamin,uc-eqhm-rdekrxsv 1 TABLET tablet 1 tab PO DAILY [...] Provider] - Disposition Disposition: Acute Care Hospital [facility] What to do if you have Problems For any increased pain, shortness of breath, bleeding, nausea or vomiting, chestpain, or any unexpected problems, contact your Primary Care Provider. Call [facility] ([phone]) or report to the closest Emergency Room. Call 911 if necessary. 12/16/22 0125 <Electronically signed by Nahum Dias DO> Cosigner Signature (if applicable): CC: Dr. Jagjit Cheema MD ~ Signed [facility] Work Phone: 1(328) 222-467606-30-2023 Progress note Author [facility] December 16, 2022 12:19am Note Date/Time December 16, 2022 12:2 0am [facility] Medical Records Department [address] [place] [address] Progress Note - Hospitalist 12/16/2218 MR#: [id number] Acct: [id number] Name: LAZARO GARZON Rep #:[id number] : 1955 67 From: Lucy Partida MD PCP: Dr. Jagjit Cheema MD Status:ADM I N Location: [place] [address] Hospitalist Note Patient noted willingness to restart eliquis regimen. Reports to staff occasionally having intermittent palpitations. 12/16/2218 <Electronically signed by Lucy Partida MD> Cosigner Signature (if applicable): CC: ~ Signed [facility] Work Phone: 1(659) 509-822706-30-2023 History and physical note Author [facility] December 15, 2022 10:52pm Note Date/Time December 15, 2022 10:1 1pm [facility] Medical Records Department [address] [place] [address] H&P Exam - Hospitalist 12/15/222209 MR#: [id number] Acct: [id number] Name: LAZARO GARZON Rep #:[id number] : 1955 67 From: Lucy Partida MD PCP: Dr. Jagjit Cheema MD Status:ADM I N Location: [place] [address] HPI - General General Date of Admission: 12/15/22 Date of Service: 12/15/22 Chief Complaint: Recent UTI Dx, ongoing fevers, chills. HPI Narrative The patient is a 67 y/o M w/ PMHx: Hx DVT/PE, PAF/Flutter, Chronic thrombocytopenia, DEENA on CPAP q HS, Former tobacco use, CAD s/p PCI, HTN, HLD, GERD, Fibromyalgia, BPH, Hx TIA, Obesity who presents to the [facility] ED on 12/15/22 with history of intial [...] IV x1, Zofran 4 mg IV x1. [facility] History Abnormal myocardial perfusion study Abnormal stress test Acute pyelonephritis Atherosclerotic heart disease of flandreau coronary artery without angina pectoris BPH (benign prostatic hyperplasia) Claudication Confusion Dyspnea on exertion Essential hypertension Fibromyalgia GERD (gastroesophageal reflux disease) H/O percutaneous transluminal coronary angioplasty History of shingles HTN (hypertension) Obesity DEENA (obstructive sleep apnea) Prostate enlargement Pulmonary embolism Pure hypercholesterolemia Rectal bleeding Testosterone deficiency TIA (transient ischemic attack) Unstable angina UTI (urinary tract infection) Home Medications multivitamin,ma-qbjf-ylbsphhn 27 mg-0.4 mg tablet 1 tab PO [...] 90.2 H, Lymph % (Auto) 4.4 L, [place] % (Auto) 4.0, Eos % (Auto) 0.7, [...] Hx TIA, Obesity who presents to the [facility] ED on 12/15/22 with history of intial [...] 08/2012, most recent repeat catheterization 2018 demonstrating flandreau multivessel coronary disease and a patent LAD [...] 75 minutes. Charges/Coding Visit Charges Inpatient E&M: 58423 Init Hosp L3 12/15/22 2252 <Electronically signed by Lucy Partida MD> Cosigner Signature (if applicable): CC: Dr. Lucy Partida MD; Dr. Jagjit Cheema MD~ Signed [facility] Work Phone: 1(128) 818-337706-29-2023 Miscellaneous Notes* Telephone Encounter - Tamra Chau RN - 12/15/2022 6:34 PM EDT Patient's son calling to say his father was seen @ [facility] ER yesterday afternoon and diagnosed with prostatitis. He was prescribed antibiotics. This afternoon patient developed fever with shaking chills. Patient took Acetaminophen for fever at 1730 PM without effect. Temp is now increasing to 104 Disposition: ED now. Patient's son is agreeable and will transport his father to [facility]. Tamra Chau RN Reason for Disposition Fever > 103 F (39.4 C) Urine infection (MALE; cystitis, pyelonephritis, prostatitis, epididymitis, orchitis, urethritis) diagnosed recently Answer Assessment - Initial Assessment Questions 1. ANTIBIOTIC: Antibiotic prescribed 12/14 @ [facility] ER 2. DURATION: Started yesterday 3. MAIN SYMPTOM: shaking chills and fever 4. FEVER: fever started this afternoon and is increasing. T-104 one hour after taking Acetaminophen 5. OTHER SYMPTOMS: Do you have any other symptoms? (e.g., flank pain, penile discharge, scrotal pain, blood in urine) Protocols used: Recent Medical Visit for Illness Follow-up [id number]-[id number]-AM, Urinary Tract Infection on Antibiotic Follow-up Call - Nstf-XBAHE-JC documented in this encounterSouthwest General Health Center06-28-2023 History of Present illness Narrative* Jagjit Cheema [...] Right 1988 LAPS SURG CHOLECYSTECTOMY W/CHOLANGIOGRAPHY 2004 [facility] - Dr. Bales OPEN REPAIR OF ROTATOR CUFF ACUTE Rotator cuff repair PERCUTANEOUS CORONARY INTERVENTION 2006 stent to LAD TONSILLECTOMY PRIMARY/SECONDARY <AGE 12 Tonsillectomy FAMILY HISTORY Problem Relation Age of Onset Hypertension Mother Heart Mother Stroke Mother Allergies Mother Breast Cancer Mother Heart Father of [place] Allergies Father Asthma Daughter Allergies Sister Allergies [...] E86.0 Jagjit Cheema MD documented in this encounterSouthwest General Health Center05-09-2023 Miscellaneous Notes* Telephone Encounter - Allison Tavares RN - 10/25/2022 3:32 PM EDT Juliane from [facility] calls and is asking [...] advise, Allison Tavares RN documented in this encounterSouthwest General Health Center05-09-2023 History of Present illness Narrative* Jagjit Cheema [...] decreased ambition. 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 Not sure he can afford counseling right now. No suicidal ideation. 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 Labs were all stable. Component Latest [...] Abs Lymph 1.00 - 4.00 k/uL 1.14 [place]% % 8.6 Abs [place] <0.87 k/uL 0.42 Eosin% % 1.6 Abs [...] Right 1987 LAPS SURG CHOLECYSTECTOMY W/CHOLANGIOGRAPHY 2004 [facility] - Dr. Bales OPEN REPAIR OF ROTATOR CUFF ACUTE Rotator cuff repair PERCUTANEOUS CORONARY INTERVENTION 2006 stent to LAD TONSILLECTOMY PRIMARY/SECONDARY <AGE 12 Tonsillectomy FAMILY HISTORY Problem Relation Age of Onset Hypertension Mother Heart Mother Stroke Mother Allergies Mother Breast Cancer Mother Heart Father of [place] Allergies Father Asthma Daughter Allergies Sister Allergies [...] - stable. 3. 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- ICD9: 414.01, ICD10: I25.10 - call if any issues. 4. Atrial flutter, unspecified type (HCC) - ICD9: 427.32, ICD10: I48.92 - stable. 5. Adjustment disorder with anxious mood - ICD9: 309.24, ICD10: F43.22 - increase meds. Call if any issues. - SERTRALINE 50 MG TABLET Jagjit Cheema RTO in two months and prn. documented in this encounterSouthwest General Health Center04-07-2023 Miscellaneous Notes* Telephone Encounter - ZENAIDA Franco - 09/23/2022 1:14 PM EDT BEHAVIORAL HEALTH SOCIAL WORK CONSULT NOTE Service Date: September 23, 2022 Patient was identified by name and Patient: Lazaro Garzon [address] [place] [id number] (home) [phone] (cell) PCP: Jagjit Cheema MD [address] [place] [address] Patient identified for [facility] from: PCP Reason for referral: Resources Behavioral Health Resources: Psychology - talk therapy [facility] encounter type: Telephone Encounter Assessment: Referral made to engage patient experiencing an Adjustment Disorder and to provide therapy resources. [facility] reviewed patient's chart and insurance to identify resources. Patient stated they are experiencing stress. Patient denies suicidal or homicidal ideation. Patient identified he does not want toengage in therapy at this time. [facility] provided his contact information to patient if [...] 15 minutes ZENAIDA Franco-S documented in this encounterSouthwest General Health Center04-06-2023 History of Present illness Narrative* Jagjit Cheema [...] down. No suicidal ideation. Not sleeping frequently. 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 Not current lung issues. [...] Right 1988 LAPS SURG CHOLECYSTECTOMY W/CHOLANGIOGRAPHY 2004 [facility] - Dr. Bales OPEN REPAIR OF ROTATOR CUFF ACUTE Rotator cuff repair PERCUTANEOUS CORONARY INTERVENTION 2006 stent to LAD TONSILLECTOMY PRIMARY/SECONDARY <AGE 12 Tonsillectomy FAMILY HISTORY Problem Relation Age of Onset Hypertension Mother Heart Mother Stroke Mother Allergies Mother Breast Cancer Mother Heart Father of [place] Allergies Father Asthma Daughter Allergies Sister Allergies [...] 25 HYDROXY 6. 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- ICD9: 414.01, ICD10: [...] HYDROXY Jagjit Cheema MD documented in this encounterSouthwest General Health Center03-21-2023 Miscellaneous Notes* Telephone Encounter - Beverley Cruz LPN - 09/06/2022 12:12 PM EDT Please see BooknGo message. * Telephone Encounter - Beverley Cruz [...] Medication has not been refilled since 08/13/2020, Bookn[employer] message sent for reason why. Please advise. Thank you. Beverley Cruz LPN documented in this encounterSouthwest General Health Center02-21-2023 Procedure [facility]02-21-2023 History and physical note Author Dr. Alfred [facility] August 09, 2022 11:07am Note Date/Time August 08, 2022 8:23am [facility] Medical Records Department [address] [place] [address] History & Physical Exam 08/08/22 0821 MR#: [id number] Acct: [id number] Name: LAZARO GARZON Rep #:[id number] : 1955 66 From: Willis Alfred MD PCP: Dr. Jagjit Cheema MD Status:REG S DC Location: [facility] History and Physical Date of Admission: 08/09/22 [facility] [address] [place] [address] OFFICE VISIT Date of Service:? 08/03/22 MR#: [id number] Acct: [id number] Name:LAZARO GUTIERREZ Rep #: [id number] : 1955 ? Provider: ?SARA Gooden Age/Sex:? 66/M Location: [facility] Status: Signed HPI HPI History of [...] 98 ? 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 Is patient in pain?: No Allergies Sulfa (Sulfonamide Antibiotics) Allergy (Verified 08/03/22 08:43) Unknown Medications multivitamin,ey-pbxp-xmxxjkcj 27 mg-0.4 mg tablet 1 tab PO [...] test Acute pyelonephritis Atherosclerotic heart disease of flandreau coronary artery without angina pectoris BPH (benign [...] function LVEF: by LV gram 60 % [place] Multivessel CAD (LAD: Proximal Stent: Patent) RECOMMENDATIONS [...] most recent cardiac catheterization from 2018 demonstrated flandreau multivessel CAD, and a patent stent in [...] I25.1 0 - Atherosclerotic heart disease of flandreau coronary artery without angina pectoris, I48.92 - [...] cardioversion on 08/09/2022 ? ? 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 Jagjit Cheema MD~ Signed [facility] Work Phone: 1(312) 241-566701-04-2023 Miscellaneous Notes* Telephone Encounter - Fouzia Cope LPN - 06/22/2022 11:06 AM EST Patient phones requesting refills as follows: Requested Prescriptions Pending Prescriptions Disp Refills potassium chloride (K-TAB) 10 mEq tablet 180 tablet 1 Sig: Take 2 tablets by mouth once daily. CRUZITO-11/29/21 Labs-04/29/22 NOV-none med filled 11/16/21 Please review and advise. Fouzia Cope LPN documented in this encounterSouthwest General Health Center09-24-2022 Miscellaneous Notes* Telephone Encounter - Grace Darden Ma - 03/12/2022 9:20 AM EDT Last office visit: 11/29/21 F/u scheduled: none Grace Darden Ma documented in this encounterSouthwest General Health Center09-06-2022 Miscellaneous Notes* Telephone Encounter - Grace Darden Ma - 02/22/2022 2:22 PM EDT Last office visit: 11/29/21 F/u scheduled: none Grace Darden Ma documented in this encounterSouthwest General Health Center09-06-2022 Miscellaneous Notes* Telephone Encounter - Grace Darden Ma - 02/22/2022 1:56 PM EDT Last office visit: 11/29/21 F/u scheduled: none Grace Darden Ma documented in this encounterSouthwest General Health Center08-27-2022 History of Present illness Narrative* Carolann Lucas APRN.ROSITA - 02/12/2022 11:04 AM EDT Subjective The history is provided by the patient. No high school foreign language teacher was used. JOHNATHON Garzon is a 66 [...] have confirmed and edited as necessary, the [facility] Review of Systems Constitutional: Negative [...] evaluation. Carolann Lucas APRN.ROSITA documented in this encounterSouthwest General Health Center06-21-2022 Miscellaneous Notes* Telephone Encounter - Sandy Velez LPN - 12/07/2021 10:20 AM EDT Pt called and states he had COVID then started with Shingles. He is taking medication for shingles and now he is having problems with his sinuses and starting to have problems with his ears. Pt instructed would need to be seen and evaluated. Pt states he is in [place] and will go to a stat care there. Sandy Velez LPN documented in this encounterSouthwest General Health Center06-13-2022 Miscellaneous Notes* Telephone Encounter - Kira Hassan [...] Please call if/when sent. documented in this encounterSouthwest General Health Center06-13-2022 Miscellaneous Notes* Telephone Encounter - Asuncion Robertson [...] any issues or worsening. documented in this encounterSouthwest General Health Center06-13-2022 History of Present illness Narrative* Shannon Vázquez, [...] 29, 2021 1:05 PM documented in this encounterSouthwest General Health Center04-28-2022 History of Present illness Narrative* Lyssa Velez [...] history is provided by the patient. No high school foreign language teacher was used. Hypertension Review of Systems Constitutional: [...] Right 1988 LAPS SURG CHOLECYSTECTOMY W/CHOLANGIOGRAPHY 2004 [facility] - Dr. Bales OPEN REPAIR OF ROTATOR [...] Mother Breast Cancer Mother Heart Father of [place] Allergies Father Asthma Daughter Allergies Sister Allergies [...] okay with this care plan. Kisha Wen APRN.RSOITA documented in this encounterSouthwest General Health Center03-25-2022 Instructions* Patient Instructions* Oliva Gutierrez PA-C - [...] 10 to 15 minutes. documented in this encounterSouthwest General Health Center03-25-2022 History of Present illness Narrative* Oliva Gutierrez [...] Right 1988 LAPS SURG CHOLECYSTECTOMY W/CHOLANGIOGRAPHY 2004 [facility] - Dr. Bales OPEN REPAIR OF ROTATOR CUFF ACUTE Rotator cuff repair PERCUTANEOUS CORONARY INTERVENTION 2006 stent to LAD TONSILLECTOMY PRIMARY/SECONDARY <AGE 12 Tonsillectomy FAMILY HISTORY Problem Relation Age of Onset Hypertension Mother Heart Mother Stroke Mother Allergies Mother Breast Cancer Mother Heart Father of [place] Allergies Father Asthma Daughter Allergies Sister Allergies [...] Level: 3 - Low documented in this encounterSouthwest General Health Center03-25-2022 History of Present illness Narrative* Ema Tavares [...] 10, 2021 4:32 PM documented in this encounterSouthwest General Health Center03-20-2021 History of Present illness Narrative* Abraham Rosa MD - 09/05/2020 11:45 AM EDT DATE OF SERVICE: 09/05/2020 SUBJECTIVE: Patient is here with a history of gout and right great toe pain beginning several days after he stopped taking his allopurinol. OBJECTIVE: Right great toe is tender. ASSESSMENT: Gout. PLAN: Prednisone 60 mg daily for up to 5 days. Resume other medications. MD ESEQUIEL Godoy/[id number] SSI File#: [id number] END OF DOCUMENT / CHANGE LOG FOLLOWS Last Edited By Elec. Signed By Abraham Rosa MD #LANETTEUTH Abraham Rosa MD #LANETTEUTH on 09/14/2020 09:32 ET on 09/14/2020 09:32 ET Revision Number - 2 ^^^ Verified/Reviewed by 09/14/20 KELVIN [facility] PATIENT NAME: LAZARO GARZON MEDICAL REC #: [id number] [place], [place] ADMIT DATE[facility] [place] [facility] PHYS[facility] documented in this encounterSouthwest General Health Center11-10-2020 History of Present illness Narrative* Ashwin Hernandez)Kd - 04/28/2020 4:00 PM EST documented in this encounterSouthwest General Health Center10-01-2020 History of Present illness Narrative* Eyal Motnoya DO - 03/19/2020 4:48 PM EDT DATE [...] symptoms do not resolve. Eyal Montoya DO /[id number] SSI File#: [id number] END OF DOCUMENT / CHANGE LOG FOLLOWS Last Edited By Elec. Signed By Eyal Montoya DO #LAURENGA Eyal Montoya DO #CLAGA on 03/23/2020 08:06 ET on 03/23/2020 08:06 ET Revision Number - 2 ^^^ Verified/Reviewed by 03/23/20 Jose G06 DARRIAN [place] [facility] PATIENT NAME: LAZARO GARZON Domenic Matias MEDICAL REC #: [id number] [place], [place] ADMIT DATE: [facility] REPORT STATCARE PHYSICIAN documented in this encounterSouthwest General Health Center04-25-2014 History of Past illness Narrative* Problem Noted Date Resolved Date Pulmonary embolism 10/11/2013 10/25/2022 Shortness of breath 02/08/2007 07/13/2018 Palpitations 09/30/2005 07/13/2018 documented as of this encounter (statuses as of 10/26/2022) [facility]25-2014 History of Past illness Narrative* Problem Noted Date Resolved Date Pulmonary embolism 10/11/2013 10/25/2022 Shortness of breath 02/08/2007 07/13/2018 Palpitations 09/30/2005 07/13/2018 documented as of this encounter (statuses as of 10/26/2022) [facility]2014 History of Past illness Narrative* Problem Noted Date Resolved Date Pulmonary embolism 10/11/2013 10/25/2022 Shortness of breath 02/08/2007 07/13/2018 Palpitations 09/30/2005 07/13/2018 documented as of this encounter (statuses as of 11/23/2022) [facility] History of Past illness Narrative* Problem Noted Date Resolved Date Pulmonary embolism 10/11/2013 10/25/2022 Shortness of breath 02/08/2007 07/13/2018 Palpitations 09/30/2005 07/13/2018 documented as of this encounter (statuses as of 12/15/2022) [address]25[address]2014 History of Past illness Narrative* Problem Noted Date Resolved Date Pulmonary embolism 10/11/2013 10/25/2022 Shortness of breath 02/08/2007 07/13/2018 Palpitations 09/30/2005 07/13/2018 documented as of this encounter (statuses as of 12/20/2022) [address]25[address]2014 History of Past illness Narrative* Problem Noted Date Resolved Date Pulmonary embolism 10/11/2013 10/25/2022 Shortness of breath 02/08/2007 07/13/2018 Palpitations 09/30/2005 07/13/2018 documented as of this encounter (statuses as of 12/20/2022) [address]25[address]2014 History of Past illness Narrative* Problem Noted Date Resolved Date Pulmonary embolism 10/11/2013 10/25/2022 Shortness of breath 02/08/2007 07/13/2018 Palpitations 09/30/2005 07/13/2018 documented as of this encounter (statuses as of 12/22/2022) [place] [address]-25-2014 History of Past illness Narrative* Problem Noted Date Diagnosed Date Resolved Date Pulmonary embolism 10/11/2013 3 Shortness of breath 02/08/2007 07/13/19 19 Palpitations 09/30/2005 07/13/2018 documented as of this encounter (statuses as of 01/03/2023) [address]25[address]2014 History of Past illness Narrative* Problem Noted Date Diagnosed Date Resolved Date Pulmonary embolism 10/11/2013 3 Shortness of breath 02/08/2007 07/13/19 19 Palpitations 09/30/2005 07/13/2018 documented as of this encounter (statuses as of 01/04/2023) [address]25-2014 History of Past illness Narrative* Problem Noted Date Diagnosed Date Resolved Date Pulmonary embolism 10/11/2013 3 Shortness of breath 02/08/2007 07/13/19 19 Palpitations 09/30/2005 07/13/2018 documented as of this encounter (statuses as of 01/24/2023) [address]25-2014 History of Past illness Narrative* Problem Noted Date Diagnosed Date Resolved Date Pulmonary embolism 10/11/2013 Shortness of breath 02/08/2007 07/13/19 19 Palpitations 09/30/2005 07/13/2018 documented as of this encounter (statuses as of 06/09/2023) [address]23-2007 History of Past illness Narrative* Problem Noted Date Resolved Date Shortness of breath 02/08/2007 07/13/2018 Palpitations 09/30/2005 07/13/2018 documented as of this encounter (statuses as of 09/10/2021) [address]23-2007 History of Past illness Narrative* Problem Noted Date Resolved Date Shortness of breath 02/08/2007 07/13/2018 Palpitations 09/30/2005 07/13/2018 documented as of this encounter (statuses as of 10/14/2021) [address]23-2007 History of Past illness Narrative* Problem Noted Date Resolved Date Shortness of breath 02/08/2007 07/13/2018 Palpitations 09/30/2005 07/13/2018 documented as of this encounter (statuses as of 11/16/2021) [address]23-2007 History of Past illness Narrative* Problem Noted Date Resolved Date Shortness of breath 02/08/2007 07/13/2018 Palpitations 09/30/2005 07/13/2018 documented as of this encounter (statuses as of 11/22/2021) [address]23-2007 History of Past illness Narrative* Problem Noted Date Resolved Date Shortness of breath 02/08/2007 07/13/2018 Palpitations 09/30/2005 07/13/2018 documented as of this encounter (statuses as of 11/23/2021) [address]23-2007 History of Past illness Narrative* Problem Noted Date Resolved Date Shortness of breath 02/08/2007 07/13/2018 Palpitations 09/30/2005 07/13/2018 documented as of this encounter (statuses as of 11/29/2021) [address]23-2007 History of Past illness Narrative* Problem Noted Date Resolved Date Shortness of breath 02/08/2007 07/13/2018 Palpitations 09/30/2005 07/13/2018 documented as of this encounter (statuses as of 11/29/2021) [address]23[address]2007 History of Past illness Narrative* Problem Noted Date Resolved Date Shortness of breath 02/08/2007 07/13/2018 Palpitations 09/30/2005 07/13/2018 documented as of this encounter (statuses as of 12/14/2021) [address]23[address]2007 History of Past illness Narrative* Problem Noted Date Resolved Date Shortness of breath 02/08/2007 07/13/2018 Palpitations 09/30/2005 07/13/2018 documented as of this encounter (statuses as of 12/16/2021) [address]23[address]2007 History of Past illness Narrative* Problem Noted Date Resolved Date Shortness of breath 02/08/2007 07/13/2018 Palpitations 09/30/2005 07/13/2018 documented as of this encounter (statuses as of 02/12/2022) [address]23[address]2007 History of Past illness Narrative* Problem Noted Date Resolved Date Shortness of breath 02/08/2007 07/13/2018 Palpitations 09/30/2005 07/13/2018 documented as of this encounter (statuses as of 02/22/2022) [address]23[address]2007 History of Past illness Narrative* Problem Noted Date Resolved Date Shortness of breath 02/08/2007 07/13/2018 Palpitations 09/30/2005 07/13/2018 documented as of this encounter (statuses as of 02/22/2022) [address]23[address]2007 History of Past illness Narrative* Problem Noted Date Resolved Date Shortness of breath 02/08/2007 07/13/2018 Palpitations 09/30/2005 07/13/2018 documented as of this encounter (statuses as of 03/12/2022) [address]23[address]2007 History of Past illness Narrative* Problem Noted Date Resolved Date Shortness of breath 02/08/2007 07/13/2018 Palpitations 09/30/2005 07/13/2018 documented as of this encounter (statuses as of 04/21/2022) [address]23[address]2007 History of Past illness Narrative* Problem Noted Date Resolved Date Shortness of breath 02/08/2007 07/13/2018 Palpitations 09/30/2005 07/13/2018 documented as of this encounter (statuses as of 06/24/2022) [address]23[address]2007 History of Past illness Narrative* Problem Noted Date Resolved Date Shortness of breath 02/08/2007 07/13/2018 Palpitations 09/30/2005 07/13/2018 documented as of this encounter (statuses as of 09/06/2022) [facility]08-23-2007 History of Past illness Narrative* Problem Noted Date Resolved Date Shortness of breath 02/08/2007 07/13/2018 Palpitations 09/30/2005 07/13/2018 documented as of this encounter (statuses as of 09/23/2022) [facility]2007 History of Past illness Narrative* Problem Noted Date Resolved Date Shortness of breath 02/08/2007 07/13/2018 Palpitations 09/30/2005 07/13/2018 documented as of this encounter (statuses as of 09/23/2022) [facility] Librado [facility] December 16, 2022 11:12am Note Date/Time December 16, 2022 11:0 7am [facility] Medical Records Department [address] [place] [id number] Instructions for Home/Discharge Instructions 12/16/22 1106 MR#: [id number] Acct: [id number] Name: LAZARO GARZON Rep #:[id number] : 1955 67 From: Librado Bah DO [...] 81 mg PO DAILY Qty: 90 0RF multivitamin,[id number]-[id number]-efrqhwog 1 TABLET tablet 1 tab PO DAILY [...] MD; Dr. Jagjit Cheema MD ~ Signed [facility] Work Phone: Discharge summary Author Librado Bah [facility] December 16, 2022 11:32am Note Date/Time December 16, 2022 11:3 2am [facility] Medical Records Department [address] [place] [address] Discharge Summary 12/16/22 1126 MR#: [id number] Acct: [id number] Name: LAZARO GARZON Rep #:[id number] : 1955 67 From: Librado Bah DO PCP: Dr. Jagjit Cheema MD Status:ADM I N Location: CT3 [id number] Providers Date of Admission: 12/15/22 Date of [...] #6 BPH Medications at Discharge Home Medications multivitamin,[id number]-qgzi-ajfskhpq 27 mg-0.4 mg tablet 1 tab PO [...] was seen in the emergency room at [facility] with complaints of elevated temperature at home, [...] potassium of 3.3. Patient was admitted to [place] [address] for acute cystitis, ESBL organism was suspected [...] 90.2 H, Lymph % (Auto) 4.4 L, [place] % (Auto) 4.0, Eos % (Auto) 0.7, [...] 82.1 H, Lymph % (Auto) 5.9 L, [place] % (Auto) 11.1 H, Eos % (Auto) [...] 81 mg PO DAILY Qty: 90 0RF multivitamin,oq-higg-whbaeyaz 1 TABLET tablet 1 tab PO DAILY [...] Self Care Charges/Coding Visit Charges Inpatient E&M: 78868 Disch Hosp 12/16/22 1132 <Electronically signed by Librado Bah DO> Cosigner Signature (if applicable): CC: Dr. Librado Bah DO; Dr. Jagjit Cheema MD~ Signed [facility] Work Phone: Evaluation note* Diagnosis Pes planus of both feet- Primary Acquired valgus deformity of right ankle Primary osteoarthritis of right ankle [facility] Diagnosis Feeling light headed- Primary Dizziness and giddiness [facility] Diagnosis Onset Date Resolution Status Fatigue acute Atherosclerotic heart diseas e of [place] coronary artery without angina pectoris chronic Essential hypertension chron ic Presence of stent in coronary artery 2012 chronic Pure hypercholesterolemia ch ronic Testosterone deficiency grants analyst kellie [facility] Work Phone: Evaluation note* Diagnosis Hypokalemia Hypopotassemia [facility] Onset Date Resolution Status Fatigue acute Atherosclerotic heart diseas e of [place] coronary artery without angina pectoris chronic Essential hypertension chron ic Presence of stent in coronary artery 2012 chronic Pure hypercholesterolemia ch ronic Testosterone deficiency grants analyst kellie Fatigue acute Atherosclerotic heart diseas e of [place] coronary artery without angina pectoris chronic Essential hypertension chron ic Presence of stent in coronary artery 2012 chronic Pure hypercholesterolemia ch ronic Testosterone deficiency grants analyst kellie [facility] Work Phone: Evaluation note* Diagnosis Facial pain- Primary Headache Right ear pain Otalgia, unspecified Acute right eye pain Pain in or around eye [facility] Diagnosis GERD with esophagitis [facility] noteNo assessment information availableWProMedica [facility] Work Phone: Evaluation note* Diagnosis Onset Date Resolution Status Atrial flutter acute Dyspnea acute Atherosclerotic heart diseas e of [place] coronary artery without angina pectoris chronic Essential hypertension chron ic Presence of stent in coronary artery 2012 chronic Pure hypercholesterolemia [facility] Work Phone: Evaluation note* Diagnosis Hypokalemia Hypopotassemia [facility] Diagnosis Onset Date Resolution Status Atrial flutter acute Dyspnea acute Atherosclerotic heart diseas e of [place] coronary artery without angina pectoris chronic Essential hypertension chron ic Presence of stent in coronary artery 2012 chronic Pure hypercholesterolemia ch ronic Atrial flutter acute Dyspnea acute Atherosclerotic heart diseas e of [place] coronary artery without angina pectoris chronic Essential hypertension chron ic Presence of stent in coronary artery 2012 chronic Pure hypercholesterolemia [facility] Work Phone: Evaluation note* Diagnosis Onset Date Resolution Status Atrial flutter acute Dyspnea acute Atherosclerotic heart diseas e of [place] coronary artery without angina pectoris chronic Essential hypertension chron ic Presence of stent in coronary artery 2012 chronic Pure hypercholesterolemia ch ronic Atrial flutter acute Dyspnea acute Atherosclerotic heart diseas e of [place] coronary artery without angina pectoris chronic Essential hypertension chron ic Presence of stent in coronary artery 2012 chronic Pure hypercholesterolemia ch ronic Atrial flutter acute Dyspnea acute Essential hypertension chron ic Presence of stent in coronary artery 2012 chronic Pure hypercholesterolemia [facility] Work Phone: Evaluation note* Diagnosis Bacterial sinusitis- Primary Unspecified sinusitis (chronic) Adjustment disorder with anxious mood Adjustment disorder with anxiety Essential hypertension, benign Other pulmonary embolism without acute cor pulmonale, unspecified chronicity (HCC) Hyperlipidemia, unspecified hyperlipidemia type 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 Sleep apnea, unspecified type Uncomplicated asthma, unspecified asthma severity, unspecified whether persistent Atrial flutter, unspecified type (HCC) Myalgia Mylagia and myositis, unspecified Disorder of bone, unspecified [facility]* Diagnosis Essential hypertension, benign- Primary History of pulmonary embolism Personal history of pulmonary embolism 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 Atrial flutter, unspecified type (HCC) Adjustment disorder with anxious mood Adjustment disorder with anxiety [facility] Diagnosis Adjustment disorder with anxious mood Adjustment disorder with anxiety [facility]* Diagnosis Urinary tract infection with hematuria, site unspecified- Primary Fever, unspecified fever cause Dehydration [facility]* Diagnosis Onset Date Resolution Status Atrial flutter acute Essential hypertension chron ic Presence of stent in coronary artery 2013 chronic Pure hypercholesterolemia ch ronic Complicated urinary tract infection acute Failure of outpatient treatment acute Thrombocytopenia acute [facility] Work Phone: Evaluation note* Diagnosis Urinary tract infection without hematuria, site unspecified- Primary Hypokalemia Hypopotassemia Leukocytosis, unspecified type [facility]* Diagnosis Hypokalemia Hypopotassemia [facility]* Diagnosis Anxiety with depression- Primary [facility]* Diagnosis Essential hypertension, benign- Primary Recurrent UTI (urinary tract infection) Urinary tract infection, site not specified Adjustment disorder with anxious mood Adjustment disorder with anxiety Fatigue, unspecified type Atrial flutter, unspecified type (HCC) 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 [facility]* Diagnosis Hypokalemia Hypopotassemia [facility]* Diagnosis Onset Date Resolution Status Coronary artery disease grants analyst kellie Dyslipidemia chronic Essential hypertension chron ic First degree heart block chr onic Morbid obesity with BMI of 40.0-44.9, adult chronic DEENA (obstructive sleep apnea) chronic Paroxysmal atrial flutter ch ronic Thrombocytopenia chronic Preoperative cardiovascular examination noneactive [facility] Work Phone: Evaluation note* Diagnosis GERD with esophagitis [facility] Diagnosis Bacterial sinusitis- Primary Unspecified sinusitis (chronic) Testosterone deficiency Other testicular hypofunction 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 Atrial flutter, unspecified [...] constipation Unspecified constipation [facility]* Diagnosis Hyperglycemia- Primary Other abnormal glucose [facility]* Diagnosis Onset Date Resolution Status Coronary artery disease grants analyst kellie Dyslipidemia chronic Essential hypertension chron ic First degree heart block chr onic Morbid obesity with BMI of 40.0-44.9, adult chronic DEENA (obstructive sleep apnea) chronic Paroxysmal atrial flutter ch ronic Thrombocytopenia chronic Preoperative cardiovascular examination noneactive Pre-syncope acute Coronary artery disease grants analyst kellie Dyslipidemia chronic Essential hypertension chron ic First degree heart block chr onic Morbid obesity with BMI of 40.0-44.9, adult chronic DEENA (obstructive sleep apnea) chronic Paroxysmal atrial flutter ch ronic Thrombocytopenia chronic [facility] Work Phone: Evaluation note* Diagnosis ADHD (attention deficit hyperactivity disorder), combined type- Primary Attention deficit disorder with hyperactivity [facility] Diagnosis ADHD (attention deficit hyperactivity disorder), combined type- Primary Attention deficit disorder with hyperactivity Need for vaccination Need for prophylactic vaccination and inoculation against unspecified single disease [facility]* Diagnosis Hypokalemia Hypopotassemia [facility]* Diagnosis Chest pain on breathing- Primary Painful respiration Sinobronchitis Unspecified sinusitis (chronic) Hypokalemia Hypopotassemia [facility]* Diagnosis Chronic cough- Primary Cough Chest pain on breathing Painful respiration documented in this encounter [facility] note* Diagnosis Bronchitis- Primary Bronchitis, not specified as acute or chronic Atrial flutter, unspecified type (HCC) Uncomplicated asthma, unspecified asthma severity, unspecified whether persistent Fatigue, unspecified type documented in this encounter [facility] note* Diagnosis COVID-19- Primary documented in this encounter [facility] note* Diagnosis Pain of left heel Pain in limb Pre-operative examination- Primary Preoperative examination, unspecified Adrenal nodule (HCC) Unspecified disorder of adrenal glands Uncomplicated asthma, unspecified asthma severity, unspecified whether persistent Atrial flutter, unspecified type (HCC) 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 Gastroesophageal reflux disease, [...] deficits Other polyneuropathy documented in this encounter [facility] note* Diagnosis Pre-operative examination- Primary Preoperative examination, unspecified Adrenal nodule (HCC) Unspecified disorder of adrenal glands Uncomplicated asthma, unspecified asthma severity, unspecified whether persistent Atrial flutter, unspecified type (HCC) 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 Gastroesophageal reflux disease, [...] deficits Other polyneuropathy 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- Primary Hyperlipidemia, unspecified [...] quadrant abdominal pain [facility]* Diagnosis Pre-operative examination- Primary Preoperative examination, unspecified Adrenal nodule (HCC) Unspecified disorder of adrenal glands Uncomplicated asthma, unspecified asthma severity, unspecified whether persistent Atrial flutter, unspecified type (HCC) 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 Gastroesophageal reflux disease, [...] quadrant abdominal pain [facility] Diagnosis Pre-operative examination- Primary Preoperative examination, unspecified Adrenal nodule (HCC) Unspecified disorder of adrenal glands Uncomplicated asthma, unspecified asthma severity, unspecified whether persistent Atrial flutter, unspecified type (HCC) 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 Gastroesophageal reflux disease, [...] Diarrhea, unspecified type [facility]* Diagnosis Pain Generalized pain Pre-operative examination- Primary Preoperative examination, unspecified Adrenal nodule (HCC) Unspecified disorder of adrenal glands Uncomplicated asthma, unspecified asthma severity, unspecified whether persistent Atrial flutter, unspecified type (HCC) 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 Gastroesophageal reflux disease, [...] deficits Other polyneuropathy [facility]* Diagnosis Other pulmonary embolism without acute cor pulmonale, unspecified chronicity (HCC) Chest pain, unspecified type Pre-operative examination- Primary Preoperative examination, unspecified Adrenal nodule (HCC) Unspecified disorder of adrenal glands Uncomplicated asthma, unspecified asthma severity, unspecified whether persistent Atrial flutter, unspecified type (HCC) 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 Gastroesophageal reflux disease, [...] deficits Other polyneuropathy [facility] Diagnosis Pain of right heel Pain in limb Pre-operative examination- Primary Preoperative examination, unspecified Adrenal nodule (HCC) Unspecified disorder of adrenal glands Uncomplicated asthma, unspecified asthma severity, unspecified whether persistent Atrial flutter, unspecified type (HCC) 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 Gastroesophageal reflux disease, [...] deficits Other polyneuropathy [facility] Diagnosis Pre-operative examination- Primary Preoperative examination, unspecified Adrenal nodule (HCC) Unspecified disorder of adrenal glands Uncomplicated asthma, unspecified asthma severity, unspecified whether persistent Atrial flutter, unspecified type (HCC) 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 Gastroesophageal reflux disease, [...] unspecified whether persistent [facility] Diagnosis Pre-operative examination- Primary Preoperative examination, unspecified Adrenal nodule (HCC) Unspecified disorder of adrenal glands Uncomplicated asthma, unspecified asthma severity, unspecified whether persistent Atrial flutter, unspecified type (HCC) 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 Gastroesophageal reflux disease, [...] Shortness of breath [facility] Diagnosis Pre-operative examination- Primary Preoperative examination, unspecified Adrenal nodule (HCC) Unspecified disorder of adrenal glands Uncomplicated asthma, unspecified asthma severity, unspecified whether persistent Atrial flutter, unspecified type (HCC) 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 Gastroesophageal reflux disease, [...] Shortness of breath [facility] Diagnosis Pre-operative examination- Primary Preoperative examination, unspecified Adrenal nodule (HCC) Unspecified disorder of adrenal glands Uncomplicated asthma, unspecified asthma severity, unspecified whether persistent Atrial flutter, unspecified type (HCC) 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 Gastroesophageal reflux disease, [...] Other abnormal glucose [facility] Diagnosis Pre-operative examination- Primary Preoperative examination, unspecified Adrenal nodule (HCC) Unspecified disorder of adrenal glands Uncomplicated asthma, unspecified asthma severity, unspecified whether persistent Atrial flutter, unspecified type (HCC) 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 Gastroesophageal reflux disease, [...] Unspecified sinusitis (chronic) [facility] Diagnosis Pre-operative examination- Primary Preoperative examination, unspecified Adrenal nodule (HCC) Unspecified disorder of adrenal glands Uncomplicated asthma, unspecified asthma severity, unspecified whether persistent Atrial flutter, unspecified type (HCC) 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 Gastroesophageal reflux disease, [...] acute or chronic [facility] Diagnosis Pre-operative examination- Primary Preoperative examination, unspecified Adrenal nodule (HCC) Unspecified disorder of adrenal glands Uncomplicated asthma, unspecified asthma severity, unspecified whether persistent Atrial flutter, unspecified type (HCC) 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 Gastroesophageal reflux disease, [...] acute or chronic [facility] Diagnosis Pre-operative examination- Primary Preoperative examination, unspecified Adrenal nodule (HCC) Unspecified disorder of adrenal glands Uncomplicated asthma, unspecified asthma severity, unspecified whether persistent Atrial flutter, unspecified type (HCC) 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 Gastroesophageal reflux disease, [...] Shortness of breath [facility] Diagnosis Pre-operative examination- Primary Preoperative examination, unspecified Adrenal nodule (HCC) Unspecified disorder of adrenal glands Uncomplicated asthma, unspecified asthma severity, unspecified whether persistent Atrial flutter, unspecified type (HCC) 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 Gastroesophageal reflux disease, [...] glucose Hypokalemia Hypopotassemia [facility] Diagnosis Pre-operative examination- Primary Preoperative examination, unspecified Adrenal nodule (HCC) Unspecified disorder of adrenal glands Uncomplicated asthma, unspecified asthma severity, unspecified whether persistent Atrial flutter, unspecified type (HCC) 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 Gastroesophageal reflux disease, [...] polyneuropathy Hypokalemia Hypopotassemia [facility] Diagnosis Pre-operative examination- Primary Preoperative examination, unspecified Adrenal nodule (HCC) Unspecified disorder of adrenal glands Uncomplicated asthma, unspecified asthma severity, unspecified whether persistent Atrial flutter, unspecified type (HCC) 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 Gastroesophageal reflux disease, [...] glucose Hypokalemia Hypopotassemia [facility] Diagnosis Pre-operative examination- Primary Preoperative examination, unspecified Adrenal nodule (HCC) Unspecified disorder of adrenal glands Uncomplicated asthma, unspecified asthma severity, unspecified whether persistent Atrial flutter, unspecified type (HCC) 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 Gastroesophageal reflux disease, [...] Bacterial pneumonia, unspecified [facility] Diagnosis Pre-operative examination- Primary Preoperative examination, unspecified Adrenal nodule (HCC) Unspecified disorder of adrenal glands Uncomplicated asthma, unspecified asthma severity, unspecified whether persistent Atrial flutter, unspecified type (HCC) 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 Gastroesophageal reflux disease, [...] Essential hypertension, benign [facility] Diagnosis Pre-operative examination- Primary Preoperative examination, unspecified Adrenal nodule (HCC) Unspecified disorder of adrenal glands Uncomplicated asthma, unspecified asthma severity, unspecified whether persistent Atrial flutter, unspecified type (HCC) 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 Gastroesophageal reflux disease, [...] deficits Other polyneuropathy 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- Primary Hyperlipidemia, unspecified hyperlipidemia type Atrial flutter, unspecified type (HCC) Sleep apnea, unspecified type Gastric intestinal metaplasia History of pulmonary embolism Personal history of pulmonary embolism History of asthma Personal history of other diseases of respiratory system Fatigue, unspecified type [facility] Diagnosis Pre-operative examination- Primary Preoperative examination, unspecified Adrenal nodule (HCC) Unspecified disorder of adrenal glands Uncomplicated asthma, unspecified asthma severity, unspecified whether persistent (HCC) Atrial flutter, unspecified type (HCC) 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 Gastroesophageal reflux disease, [...] Primary Thrombocytopenia, unspecified [facility] Diagnosis Pre-operative examination- Primary Preoperative examination, unspecified Adrenal nodule (HCC) Unspecified disorder of adrenal glands Uncomplicated asthma, unspecified asthma severity, unspecified whether persistent (HCC) Atrial flutter, unspecified type (HCC) 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 Gastroesophageal reflux disease, [...] Essential hypertension, benign [facility] Diagnosis Pre-operative examination- Primary Preoperative examination, unspecified Adrenal nodule (HCC) Unspecified disorder of adrenal glands Uncomplicated asthma, unspecified asthma severity, unspecified whether persistent (HCC) Atrial flutter, unspecified type (HCC) 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 Gastroesophageal reflux disease, [...] Anxiety with depression [facility] Diagnosis Pre-operative examination- Primary Preoperative examination, unspecified Adrenal nodule (HCC) Unspecified disorder of adrenal glands Uncomplicated asthma, unspecified asthma severity, unspecified whether persistent (HCC) Atrial flutter, unspecified type (HCC) 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 Gastroesophageal reflux disease, [...] GERD with esophagitis [facility] Diagnosis Pre-operative examination- Primary Preoperative examination, unspecified Adrenal nodule (HCC) Unspecified disorder of adrenal glands Uncomplicated asthma, unspecified asthma severity, unspecified whether persistent (HCC) Atrial flutter, unspecified type (HCC) 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 Gastroesophageal reflux disease, [...] Thrombocytopenia Thrombocytopenia, unspecified documented in this encounter [facility] note* Diagnosis Pre-operative examination- Primary Preoperative examination, unspecified Adrenal nodule (HCC) Unspecified disorder of adrenal glands Uncomplicated asthma, unspecified asthma severity, unspecified whether persistent (HCC) Atrial flutter, unspecified type (HCC) 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 Gastroesophageal reflux disease, [...] breath Acute cough [facility] Diagnosis Pre-operative examination- Primary Preoperative examination, unspecified Adrenal nodule (HCC) Unspecified disorder of adrenal glands Uncomplicated asthma, unspecified asthma severity, unspecified whether persistent (HCC) Atrial flutter, unspecified type (HCC) 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 Gastroesophageal reflux disease, [...] apnea, unspecified type 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 Class 2 obesity with body mass index (BMI) of 38.0 to 38.9 in adult, unspecified obesity type, unspecified whether serious comorbidity present Attention deficit disorder, unspecified type documented in this encounter [facility] note* Diagnosis Pre-operative examination- Primary Preoperative examination, unspecified Adrenal nodule (HCC) Unspecified disorder of adrenal glands Uncomplicated asthma, unspecified asthma severity, unspecified whether persistent (HCC) Atrial flutter, unspecified type (HCC) 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 Gastroesophageal reflux disease, [...] polyneuropathy Hypokalemia Hypopotassemia documented in this encounter [facility] note* Diagnosis Pre-operative examination- Primary Preoperative examination, unspecified Adrenal nodule (HCC) Unspecified disorder of adrenal glands Uncomplicated asthma, unspecified asthma severity, unspecified whether persistent (HCC) Atrial flutter, unspecified type (HCC) 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 Gastroesophageal reflux disease, [...] rectum and anus [facility] Author Lucy Partida [facility] December 15, 2022 10:52pm Note Date/Time December 15, 2022 10:[address] [place] [address] Medical Records Department [address] [place] [id number] H&P Exam - Hospitalist 12/15/22 2210 MR#: [id number] Acct: [id number] Name: LAZARO GARZON Rep #:[id number] : 1955 67 From: Lucy Partida MD PCP: Dr. Jagjit Cheema MD Status:ADM I N Location: [place] [address] HPI - General General Date of Admission: 12/15/22 Date of Service: 12/15/22 Chief Complaint: Recent UTI Dx, ongoing fevers, chills. HPI Narrative The patient is a 67 y/o M w/ PMHx: Hx DVT/PE, PAF/Flutter, Chronic thrombocytopenia, DEENA on CPAP q HS, Former tobacco use, CAD s/p PCI, HTN, HLD, GERD, Fibromyalgia, BPH, Hx TIA, Obesity who presents to the [facility] ED on 12/15/22 with history of intial [...] IV x1, Zofran 4 mg IV x1. [facility] Medical History Abnormal myocardial perfusion study Abnormal stress test Acute pyelonephritis Atherosclerotic heart disease of flandreau coronary artery without angina pectoris BPH (benign prostatic hyperplasia) Claudication Confusion Dyspnea on exertion Essential hypertension Fibromyalgia GERD (gastroesophageal reflux disease) H/O percutaneous transluminal coronary angioplasty History of shingles HTN (hypertension) Obesity DEENA (obstructive sleep apnea) Prostate enlargement Pulmonary embolism Pure hypercholesterolemia Rectal bleeding Testosterone deficiency TIA (transient ischemic attack) Unstable angina UTI (urinary tract infection) Home Medications multivitamin,zl-roaj-oilgreop 27 mg-0.4 mg tablet 1 tab PO [...] 90.2 H, Lymph % (Auto) 4.4 L, [place] % (Auto) 4.0, Eos % (Auto) 0.7, [...] Hx TIA, Obesity who presents to the [facility] ED on 12/15/22 with history of intial [...] 08/2012, most recent repeat catheterization 2017 demonstrating flandreau multivessel coronary disease and a patent LAD [...] 75 minutes. Charges/Coding Visit Charges Inpatient E&M: 26784 Init Hosp L3 12/15/22 2252 <Electronically signed by Lucy Partida MD> Cosigner Signature (if applicable): CC: Dr. Lucy Partida MD; Dr. Jagjit Cheema MD~ Signed [facility] Work Phone: Hospital Discharge instructionsAmbulatory Orders* Nutrition Referral Location: None Selected [facility] Work Phone: Reason for referral (narrative)* Diagnostic Procedure Only (Urgent) - Closed Specialty Diagnoses / Procedures Referred By Contac t Referred To Contact XR IMAGING Diagnoses Pain of left heel Procedures XR FOOT GENERAL 3V AP/LAT/OBL LEFT RADEX FOOT COMPLETE MINIMUM 3 VIEWS Anabelle Tom APRN.CANDLE MOLDER [address] [place] [address] [place] [address] Referral ID Status Reason Start Date Expiration Date V isits Requested Visits Authorized [id number] Closed Auto-Generated Referral Patient Cleared - INN Insurance Found 04/03/2023 05/02/2024 1 1 [facility] for referral (narrative)* Diagnostic Procedure Only (Routine) - Closed Specialty Diagnoses / Procedures Referred By Contac t Referred To Contact XR IMAGING Diagnoses Pain Procedures XR FOOT GENERAL 3V AP/LAT/OBL RIGHT RADEX FOOT COMPLETE MINIMUM 3 VIEWS Oliva Gutierrez PA-C [address] [place] [address] [place] [address] Referral ID Status Reason Start Date Expiration Date V isits Requested Visits Authorized [id number] Closed Auto-Generate d Referral 09/08/2021 10/08/2022 1 1 * Diagnostic Procedure Only (Routine) - Closed Specialty Diagnoses / Procedures Referred By Contac t Referred To Contact XR IMAGING Diagnoses Pain Procedures XR ANKLE GENERAL 3V AP/LAT/OBL RIGHT RADEX ANKLE COMPLETE MINIMUM 3 VIEWS Oliva Gutierrez PA-C [address] [place] [address] [place] [address] Referral ID Status Reason Start Date Expiration Date V isits Requested Visits Authorized [id number] Closed Auto-Generate d Referral 09/08/2021 10/08/2022 1 1 [facility] for referral (narrative)No reason for referral [facility] Work Phone: [facility] for visit Narrative* Diagnostic Procedure Only (Urgent) - Closed Specialty Diagnoses / Procedures Referred By Contac t Referred To Contact XR IMAGING Diagnoses Pain of left heel Procedures XR FOOT GENERAL 3V AP/LAT/OBL LEFT RADEX FOOT COMPLETE MINIMUM 3 VIEWS Anabelle Tom APRN.CNP [address] [place] [address] [place] [address] Referral ID Status Reason Start Date Expiration Date V isits Requested Visits Authorized [id number] Closed Auto-Generated Referral Patient Cleared - INN Insurance Found 04/03/2023 05/02/2024 1 1 [facility] Summary Purpose Family History Relationship Condition Age at Onset Recorded Date/T shukri mother Coronary artery disease Unknown Hypertension Unknown History of coronary artery bypass surgery Unknown father Hypertension Unknown Myocardial infarction Unknown grandfather Myocardial infarction Unknown grandmother Malignant neoplasm Unknown grandfather Coronary artery disease Unknown Advance Directives Documents on File Type Date Recorded Patient Rn Anesthetist Expl anation Advance Directive(s) 07/20/2016 7:44 AM Advance Directive(s) 05/10/2016 5:01 PM Advance Directive(s) 06/05/2012 1:03 PM Advance Directive Response Recorded Date/ Time Advance Directives No April 5:24pm Living Will Yes February 29, 2020 1:43am Power of Cellular Equipment Installer Yes February 1:43am Documents on File Type Date Recorded Patient Rn Anesthetist Expl anation Advance Directive(s) 06/05/2012 1:03 PM Advance Directive Response Recorded Date/ Time Name of Medical Power of Cellular Equipment Installer JACQUES MENDEZ R, February 12, 2022 11:34am Advance Directives No April 5:24pm Living Will Yes February 12 11:34am Power of Cellular Equipment Installer Yes February 12 11:34am Advance Directive Response Recorded Date/ Time Name of Medical Power of Cellular Equipment Installer JACQUES MENDEZ R, February 12, 2022 10:34am Advance Directives No April 4:24pm Living Will Yes February 12 10:34am Power of Cellular Equipment Installer Yes February 12 10:34am Advance Directive Response Recorded Date/ Time Name of Medical Power of Cellular Equipment Installer JACQUES MENDEZ R, February 12, 2022 10:34am Name of Medical Power of Cellular Equipment Installer Karin Garzon May 07, 2022 11:33am Advance Directives No April 4:24pm Living Will Yes May 07 11:33am Power of Cellular Equipment Installer Yes May 07, 2022 11:33am Advance Directive Response Recorded Date/ Time Name of Medical Power of Cellular Equipment Installer Karin Garzon May 07, 2022 11:33am Advance Directives No April 4:24pm Living Will Yes May 07, 11:33am Power of Cellular Equipment Installer Yes May 07, 2022 11:33am Advance Directive Response Recorded Date/ Time Advance Directives No April 5:24pm Living Will No December 15, 2022 7:07pm Power of Cellular Equipment Installer No December 15 7:07pm Advance Directive Response Recorded Date/ Time Advance Directives No April 5:24pm Living Will No December 15, 2022 11:33pm Power of Cellular Equipment Installer No December 15 11:33pm Advance Directive Response Recorded Date/ Time Advance Directives No April 4:24pm Living Will No December 15, 2022 10:33pm Power of Cellular Equipment Installer No December 15 10:33pm Documents on File Type Date Recorded Patient Rn Anesthetist Expl anation Advance Directive(s) 06/05/2012 1:03 PM Advance Directive Response Recorded Date/ Time Living Will No December 15, 2022 11:33pm Do you have a Healthcare Power of Cellular Equipment Installer? No December 15, 2022 11:33pm Do you have a Healthcare Power of Cellular Equipment Installer? Yes October 28, 2024 10:55am Advance Directives No January 14 10:22am Advance Directive Response Recorded Date/ Time Living Will No December 15, 2022 11:33pm Do you have a Healthcare Power of Cellular Equipment Installer? No December 15, 2022 11:33pm Do you have a Healthcare Power of Cellular Equipment Installer? Yes October 28, 2024 10:55am Do you have a Healthcare Power of Cellular Equipment Installer? Yes November 20, 2024 10:51am Name of Medical Power of Cellular Equipment Installer Lucila Dey November 20, 2024 10:51am Advance Directives No January 14 10:22am Chief Complaint and Reason for Visit Chief Complaint Admit Date 6 M FU August 16, 2024 10:25am GI Bleed October 28, 2024 9:35a m sob November 20, 2024 10:25 am Reason for Visit Admit Date Atherosclerotic heart diseas e of flandreau coronary artery without angina pectoris August 16, 2024 10:25am Atrial flutter August 16, 2024 10:25am Essential hypertension August 16 10:25am Pure hypercholesterolemia August 16, 2024 10:25am Chief Complaint Cervical spine 6 M FU Reason for Visit Fatigue Atherosclerotic heart disease of flandreau coronary artery without angina pectoris Essential hypertension Presence of stent in coronary artery Pure hypercholesterolemia Testosterone deficiency Chief Complaint Cervical spine 6 M FU 6 wk FU Reason for Visit Fatigue Atherosclerotic heart disease of flandreau coronary artery without angina pectoris Essential hypertension Presence of stent in coronary artery Pure hypercholesterolemia Testosterone deficiency Fatigue Atherosclerotic heart disease of fl[place] coronary artery without angina pectoris Essential hypertension Presence of stent in coronary artery Pure hypercholesterolemia Testosterone deficiency Chief Complaint 6 M FU 6 wk FU HEAD Reason for Visit Fatigue Atherosclerotic heart disease of fl[place]re[place] coronary artery without angina pectoris Essential hypertension Presence of stent in coronary artery Pure hypercholesterolemia Testosterone deficiency Fatigue Atherosclerotic heart disease of flandreau coronary artery without angina pectoris Essential hypertension Presence of stent in coronary artery Pure hypercholesterolemia Testosterone deficiency Chief Complaint HEAD TWO ORDERING LAURENT/INT LABS AND ORDER PSA Chief Complaint HEAD TWO ORDERING LAURENT/INT LABS AND ORDER PSA 6 M FU Reason for Visit Atrial flutter Dyspnea Atherosclerotic heart disease of flandre[place] coronary artery without angina pectoris Essential hypertension Presence of stent in coronary artery Pure hypercholesterolemia Chief Complaint HEAD TWO ORDERING DEYSIINT LABS AND ORDER PSA 6 M FU Chest pain Reason for Visit Atrial flutter Dyspnea Atherosclerotic heart disease of fl[place] coronary artery without angina pectoris Essential hypertension Presence of stent in coronary artery Pure hypercholesterolemia Chief Complaint HEAD TWO ORDERING LAURENT/INT LABS AND ORDER PSA 6 M FU Chest pain DYSPNEA AFIB; CAD Reason for Visit Atrial flutter Dyspnea Atherosclerotic heart disease of flandreau coronary artery without angina pectoris Essential hypertension Presence of stent in coronary artery Pure hypercholesterolemia Chief Complaint TWO ORDERING LAURENT/IN T LABS AND ORDER PSA 6 M FU Chest pain DYSPNEA AFIB; CAD 1 M FU E ORDER Reason for Visit Atrial flutter Dyspnea Atherosclerotic heart disease of fl[place]re[place] coronary artery without angina pectoris Essential hypertension Presence of stent in coronary artery Pure hypercholesterolemia Atrial flutter Dyspnea Atherosclerotic heart disease of fl[place] coronary artery without angina pectoris Essential hypertension Presence of stent in coronary artery Pure hypercholesterolemia Chief Complaint TWO ORDERING DEYSIIN T LABS AND ORDER PSA 6 M FU Chest pain DYSPNEA AFIB; CAD 1 M FU E ORDER UPDATE H&P Atrial fibrillation AFIB Atrial fibrillation Atrial fibrillation Reason for Visit Atrial flutter Dyspnea Atherosclerotic heart disease of fl[place]re[place] coronary artery without angina pectoris Essential hypertension Presence of stent in coronary artery Pure hypercholesterolemia Atrial flutter Dyspnea Atherosclerotic heart disease of fl[place] coronary artery without angina pectoris Essential hypertension [...] Admit Date Atherosclerotic heart diseas e of flandreau coronary artery without angina pectoris August 16, 2024 10:25am Atrial flutter August 16, 2024 10:25am Essential hypertension August 16 10:25am Pure hypercholesterolemia August 16, 2024 10:25am Atherosclerotic heart diseas e of flandreau coronary artery without angina pectoris November 28, [...] IVCON CT ANGIOGRAPHY CHEST W/CONTRAST/NONCONTRAST Susan Kerr, REMOTE BROADCAST TECHNICIAN.CANDLE MOLDER [address] [place] [address] [place] [address] Referral ID Status Reason Start Date Expiration Date Visits Requested Visits Authorized [id number] Pending Review Auto-Generat ed Referral 12/13/2023 01/11/2025 1 1 Specialty Diagnoses / Procedures Referred By Contac t Referred To Contact CT IMAGING Diagnoses Chest pain on breathing Procedures CT CHEST W IVCON PE DIAGNOSTIC COMPUTED TOMOGRAPHY THORAX W/CONTRAST Susan Kerr, REMOTE 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 TECHNICIAN.CANDLE MOLDER [address] [place] [address] [place] [address] Referral ID Status Reason Start Date Expiration Date Visits Requested Visits Authorized [id number] Authorized Financial Clearance Not Required 12/13/2023 01/11/2025 1 1 Specialty Diagnoses / Procedures Referred By Contac t Referred To Contact CT IMAGING Diagnoses Left lower quadrant abdominal pain Procedures CT ABD/PEL W IVCON CT ABD & PELVIS W/CONTRAST Jagjit Cheema MD [address] [place] [address] [place] [address] Referral ID Status Reason Start Date Expiration Date V isits Requested Visits Authorized [id number] Closed Financial Clearance Not Required 03/08/2024 04/07/2025 2 2 Specialty Diagnoses / Procedures Referred By Contac t Referred To Contact CT IMAGING Diagnoses Diarrhea, unspecified type Left lower quadrant abdominal pain Procedures CT ABD/PEL W IVCON CT ABD & PELVIS W/CONTRAST Jagjit Cheema MD [address] [place] [address] [place] [address] Referral ID Status Reason Start Date Expiration Date Visits Requested Visits Authorized [id number] New Request Auto-Generat ed Referral 03/08/2024 04/07/2025 1 1 Additional Source Comments (unrecognized sect ion and content) No Status Records FoundNo Status Records FoundNo Status Records FoundNo Status Records FoundNo Status Records FoundNo Status Records FoundNo Status Records Found INFORMATION SOURCE (unrecogn ized section and content) DATE CREATED AUTHOR 12/05/2017 [facility] DATE CREATED AUTHOR AUTHOR'S ORGANIZ ATION 08/29/2019 [facility] ([place] DATE CREATED AUTHOR AUTHOR'S ORGANIZ ATION 08/07/2021 [facility] DATE CREATED AUTHOR AUTHOR'S ORGANIZ ATION 07/20/2023 [facility] DATE CREATED AUTHOR AUTHOR'S ORGANIZ ATION 03/11/2024 [facility] DATE CREATED AUTHOR AUTHOR'S ORGANIZ ATION 01/03/2025 [facility] DATE CREATED AUTHOR AUTHOR'S ORGANIZ ATION 01/09/2025 [facility] Source Comments (unrecognize d section and content) In the event this informatio n is protected by the Federal Confidentiality of Alcohol and Drug Abuse Patient Records regulations: The Federal rules restrict any use of the information to criminally investigate or prosecute any alcohol or drug abuse patient.[facility] the event this information is protected by the Federal Confidentiality of Alcohol and Drug Abuse Patient Records regulations: The Federal rules restrict any use of the information to criminally investigate or prosecute any alcohol or drug abuse patient.[facility] CenterIn the event this information is protected by the Federal Confidentiality of Alcohol and Drug Abuse Patient Records regulations: The Federal rules restrict any use of the information to criminally investigate or prosecute any alcohol or drug abuse patient.[facility] CenterIn the event this information is protected by the Federal Confidentiality of Alcohol and Drug Abuse Patient Records regulations: The Federal rules restrict any use of the information to criminally investigate or prosecute any alcohol or drug abuse patient.[facility] CenterIn the event this information is protected by the Federal Confidentiality of Alcohol and Drug Abuse Patient Records regulations: The Federal rules restrict any use of the information to criminally investigate or prosecute any alcohol or drug abuse patient.[facility] CenterIn the event this information is protected by the Federal Confidentiality of Alcohol and Drug Abuse Patient Records regulations: The Federal rules restrict any use of the information to criminally investigate or prosecute any alcohol or drug abuse patient.[facility] CenterIn the event this information is protected by the Federal Confidentiality of Alcohol and Drug Abuse Patient Records regulations: The Federal rules restrict any use of the information to criminally investigate or prosecute any alcohol or drug abuse patient.[facility] CenterIn the event this information is protected by the Federal Confidentiality of Alcohol and Drug Abuse Patient Records regulations: The Federal rules restrict any use of the information to criminally investigate or prosecute any alcohol or drug abuse patient.[facility] CenterIn the event this information is protected by the Federal Confidentiality of Alcohol and Drug Abuse Patient Records regulations: The Federal rules restrict any use of the information to criminally investigate or prosecute any alcohol or drug abuse patient.[facility] CenterIn the event this information is protected by the Federal Confidentiality of Alcohol and Drug Abuse Patient Records regulations: The Federal rules restrict any use of the information to criminally investigate or prosecute any alcohol or drug abuse patient.[facility] CenterIn the event this information is protected by the Federal Confidentiality of Alcohol and Drug Abuse Patient Records regulations: The Federal rules restrict any use of the information to criminally investigate or prosecute any alcohol or drug abuse patient.[facility] CenterIn the event this information is protected by the Federal Confidentiality of Alcohol and Drug Abuse Patient Records regulations: The Federal rules restrict any use of the information to criminally investigate or prosecute any alcohol or drug abuse patient.[facility] CenterIn the event this information is protected by the Federal Confidentiality of Alcohol and Drug Abuse Patient Records regulations: The Federal rules restrict any use of the information to criminally investigate or prosecute any alcohol or drug abuse patient.[facility] CenterIn the event this information is protected by the Federal Confidentiality of Alcohol and Drug Abuse Patient Records regulations: The Federal rules restrict any use of the information to criminally investigate or prosecute any alcohol or drug abuse patient.[facility] CenterIn the event this information is protected by the Federal Confidentiality of Alcohol and Drug Abuse Patient Records regulations: The Federal rules restrict any use of the information to criminally investigate or prosecute any alcohol or drug abuse patient.[facility] CenterIn the event this information is protected by the Federal Confidentiality of Alcohol and Drug Abuse Patient Records regulations: The Federal rules restrict any use of the information to criminally investigate or prosecute any alcohol or drug abuse patient.[facility] CenterIn the event this information is protected by the Federal Confidentiality of Alcohol and Drug Abuse Patient Records regulations: The Federal rules restrict any use of the information to criminally investigate or prosecute any alcohol or drug abuse patient.[facility] CenterIn the event this information is protected by the Federal Confidentiality of Alcohol and Drug Abuse Patient Records regulations: The Federal rules restrict any use of the information to criminally investigate or prosecute any alcohol or drug abuse patient.[facility] CenterIn the event this information is protected by the Federal Confidentiality of Alcohol and Drug Abuse Patient Records regulations: The Federal rules restrict any use of the information to criminally investigate or prosecute any alcohol or drug abuse patient.[facility] CenterIn the event this information is protected by the Federal Confidentiality of Alcohol and Drug Abuse Patient Records regulations: The Federal rules restrict any use of the information to criminally investigate or prosecute any alcohol or drug abuse patient.[facility] CenterIn the event this information is protected by the Federal Confidentiality of Alcohol and Drug Abuse Patient Records regulations: The Federal rules restrict any use of the information to criminally investigate or prosecute any alcohol or drug abuse patient.[facility] CenterIn the event this information is protected by the Federal Confidentiality of Alcohol and Drug Abuse Patient Records regulations: The Federal rules restrict any use of the information to criminally investigate or prosecute any alcohol or drug abuse patient.[facility] CenterIn the event this information is protected by the Federal Confidentiality of Alcohol and Drug Abuse Patient Records regulations: The Federal rules restrict any use of the information to criminally investigate or prosecute any alcohol or drug abuse patient.[facility] CenterIn the event this information is protected by the Federal Confidentiality of Alcohol and Drug Abuse Patient Records regulations: The Federal rules restrict any use of the information to criminally investigate or prosecute any alcohol or drug abuse patient.[facility] CenterIn the event this information is protected by the Federal Confidentiality of Alcohol and Drug Abuse Patient Records regulations: The Federal rules restrict any use of the information to criminally investigate or prosecute any alcohol or drug abuse patient.[facility] CenterIn the event this information is protected by the Federal Confidentiality of Alcohol and Drug Abuse Patient Records regulations: The Federal rules restrict any use of the information to criminally investigate or prosecute any alcohol or drug abuse patient.[facility] CenterIn the event this information is protected by the Federal Confidentiality of Alcohol and Drug Abuse Patient Records regulations: The Federal rules restrict any use of the information to criminally investigate or prosecute any alcohol or drug abuse patient.[facility] CenterIn the event this information is protected by the Federal Confidentiality of Alcohol and Drug Abuse Patient Records regulations: The Federal rules restrict any use of the information to criminally investigate or prosecute any alcohol or drug abuse patient.[facility] CenterIn the event this information is protected by the Federal Confidentiality of Alcohol and Drug Abuse Patient Records regulations: The Federal rules restrict any use of the information to criminally investigate or prosecute any alcohol or drug abuse patient.[facility] CenterIn the event this information is protected by the Federal Confidentiality of Alcohol and Drug Abuse Patient Records regulations: The Federal rules restrict any use of the information to criminally investigate or prosecute any alcohol or drug abuse patient.[facility] CenterIn the event this information is protected by the Federal Confidentiality of Alcohol and Drug Abuse Patient Records regulations: The Federal rules restrict any use of the information to criminally investigate or prosecute any alcohol or drug abuse patient.[facility] CenterIn the event this information is protected by the Federal Confidentiality of Alcohol and Drug Abuse Patient Records regulations: The Federal rules restrict any use of the information to criminally investigate or prosecute any alcohol or drug abuse patient.[facility] CenterIn the event this information is protected by the Federal Confidentiality of Alcohol and Drug Abuse Patient Records regulations: The Federal rules restrict any use of the information to criminally investigate or prosecute any alcohol or drug abuse patient.[facility] CenterIn the event this information is protected by the Federal Confidentiality of Alcohol and Drug Abuse Patient Records regulations: The Federal rules restrict any use of the information to criminally investigate or prosecute any alcohol or drug abuse patient.[facility] CenterIn the event this information is protected by the Federal Confidentiality of Alcohol and Drug Abuse Patient Records regulations: The Federal rules restrict any use of the information to criminally investigate or prosecute any alcohol or drug abuse patient.[facility] CenterIn the event this information is protected by the Federal Confidentiality of Alcohol and Drug Abuse Patient Records regulations: The Federal rules restrict any use of the information to criminally investigate or prosecute any alcohol or drug abuse patient.[facility] CenterIn the event this information is protected by the Federal Confidentiality of Alcohol and Drug Abuse Patient Records regulations: The Federal rules restrict any use of the information to criminally investigate or prosecute any alcohol or drug abuse patient.[facility]In the event this information is protected by the Federal Confidentiality of Alcohol and Drug Abuse Patient Records regulations: The Federal rules restrict any use of the information to criminally investigate or prosecute any alcohol or drug abuse patient.[facility] CenterIn the event this information is protected by the Federal Confidentiality of Alcohol and Drug Abuse Patient Records regulations: The Federal rules restrict any use of the information to criminally investigate or prosecute any alcohol or drug abuse patient.[facility] CenterIn the event this information is protected by the Federal Confidentiality of Alcohol and Drug Abuse Patient Records regulations: The Federal rules restrict any use of the information to criminally investigate or prosecute any alcohol or drug abuse patient.[facility]In the event this information is protected by the Federal Confidentiality of Alcohol and Drug Abuse Patient Records regulations: The Federal rules restrict any use of the information to criminally investigate or prosecute any alcohol or drug abuse patient.[facility]In the event this information is protected by the Federal Confidentiality of Alcohol and Drug Abuse Patient Records regulations: The Federal rules restrict any use of the information to criminally investigate or prosecute any alcohol or drug abuse patient.[facility]In the event this information is protected by the Federal Confidentiality of Alcohol and Drug Abuse Patient Records regulations: The Federal rules restrict any use of the information to criminally investigate or prosecute any alcohol or drug abuse patient.[facility] CenterIn the event this information is protected by the Federal Confidentiality of Alcohol and Drug Abuse Patient Records regulations: The Federal rules restrict any use of the information to criminally investigate or prosecute any alcohol or drug abuse patient.[facility]In the event this information is protected by the Federal Confidentiality of Alcohol and Drug Abuse Patient Records regulations: The Federal rules restrict any use of the information to criminally investigate or prosecute any alcohol or drug abuse patient.[facility]In the event this information is protected by the Federal Confidentiality of Alcohol and Drug Abuse Patient Records regulations: The Federal rules restrict any use of the information to criminally investigate or prosecute any alcohol or drug abuse patient.[facility]In the event this information is protected by the Federal Confidentiality of Alcohol and Drug Abuse Patient Records regulations: The Federal rules restrict any use of the information to criminally investigate or prosecute any alcohol or drug abuse patient.[facility]In the event this information is protected by the Federal Confidentiality of Alcohol and Drug Abuse Patient Records regulations: The Federal rules restrict any use of the information to criminally investigate or prosecute any alcohol or drug abuse patient.[facility] CenterIn the event this information is protected by the Federal Confidentiality of Alcohol and Drug Abuse Patient Records regulations: The Federal rules restrict any use of the information to criminally investigate or prosecute any alcohol or drug abuse patient.[facility]In the event this information is protected by the Federal Confidentiality of Alcohol and Drug Abuse Patient Records regulations: The Federal rules restrict any use of the information to criminally investigate or prosecute any alcohol or drug abuse patient.[facility]In the event this information is protected by the Federal Confidentiality of Alcohol and Drug Abuse Patient Records regulations: The Federal rules restrict any use of the information to criminally investigate or prosecute any alcohol or drug abuse patient.[facility]In the event this information is protected by the Federal Confidentiality of Alcohol and Drug Abuse Patient Records regulations: The Federal rules restrict any use of the information to criminally investigate or prosecute any alcohol or drug abuse patient.[facility]In the event this information is protected by the Federal Confidentiality of Alcohol and Drug Abuse Patient Records regulations: The Federal rules restrict any use of the information to criminally investigate or prosecute any alcohol or drug abuse patient.[facility]In the event this information is protected by the Federal Confidentiality of Alcohol and Drug Abuse Patient Records regulations: The Federal rules restrict any use of the information to criminally investigate or prosecute any alcohol or drug abuse patient.[facility]In the event this information is protected by the Federal Confidentiality of Alcohol and Drug Abuse Patient Records regulations: The Federal rules restrict any use of the information to criminally investigate or prosecute any alcohol or drug abuse patient.[facility]In the event this information is protected by the Federal Confidentiality of Alcohol and Drug Abuse Patient Records regulations: The Federal rules restrict any use of the information to criminally investigate or prosecute any alcohol or drug abuse patient.[facility]In the event this information is protected by the Federal Confidentiality of Alcohol and Drug Abuse Patient Records regulations: The Federal rules restrict any use of the information to criminally investigate or prosecute any alcohol or drug abuse patient.[facility]In the event this information is protected by the Federal Confidentiality of Alcohol and Drug Abuse Patient Records regulations: The Federal rules restrict any use of the information to criminally investigate or prosecute any alcohol or drug abuse patient.[facility]In the event this information is protected by the Federal Confidentiality of Alcohol and Drug Abuse Patient Records regulations: The Federal rules restrict any use of the information to criminally investigate or prosecute any alcohol or drug abuse patient.[facility]In the event this information is protected by the Federal Confidentiality of Alcohol and Drug Abuse Patient Records regulations: The Federal rules restrict any use of the information to criminally investigate or prosecute any alcohol or drug abuse patient.[facility]In the event this information is protected by the Federal Confidentiality of Alcohol and Drug Abuse Patient Records regulations: The Federal rules restrict any use of the information to criminally investigate or prosecute any alcohol or drug abuse patient.[facility]In the event this information is protected by the Federal Confidentiality of Alcohol and Drug Abuse Patient Records regulations: The Federal rules restrict any use of the information to criminally investigate or prosecute any alcohol or drug abuse patient.[facility]In the event this information is protected by the Federal Confidentiality of Alcohol and Drug Abuse Patient Records regulations: The Federal rules restrict any use of the information to criminally investigate or prosecute any alcohol or drug abuse patient.[facility]In the event this information is protected by the Federal Confidentiality of Alcohol and Drug Abuse Patient Records regulations: The Federal rules restrict any use of the information to criminally investigate or prosecute any alcohol or drug abuse patient.[facility]In the event this information is protected by the Federal Confidentiality of Alcohol and Drug Abuse Patient Records regulations: The Federal rules restrict any use of the information to criminally investigate or prosecute any alcohol or drug abuse patient.[facility]In the event this information is protected by the Federal Confidentiality of Alcohol and Drug Abuse Patient Records regulations: The Federal rules restrict any use of the information to criminally investigate or prosecute any alcohol or drug abuse patient.[facility]In the event this information is protected by the Federal Confidentiality of Alcohol and Drug Abuse Patient Records regulations: The Federal rules restrict any use of the information to criminally investigate or prosecute any alcohol or drug abuse patient.[facility]In the event this information is protected by the Federal Confidentiality of Alcohol and Drug Abuse Patient Records regulations: The Federal rules restrict any use of the information to criminally investigate or prosecute any alcohol or drug abuse patient.[facility]In the event this information is protected by the Federal Confidentiality of Alcohol and Drug Abuse Patient Records regulations: The Federal rules restrict any use of the information to criminally investigate or prosecute any alcohol or drug abuse patient.[facility]In the event this information is protected by the Federal Confidentiality of Alcohol and Drug Abuse Patient Records regulations: The Federal rules restrict any use of the information to criminally investigate or prosecute any alcohol or drug abuse patient.[facility]In the event this information is protected by the Federal Confidentiality of Alcohol and Drug Abuse Patient Records regulations: The Federal rules restrict any use of the information to criminally investigate or prosecute any alcohol or drug abuse patient.[facility]In the event this information is protected by the Federal Confidentiality of Alcohol and Drug Abuse Patient Records regulations: The Federal rules restrict any use of the information to criminally investigate or prosecute any alcohol or drug abuse patient.[facility]In the event this information is protected by the Federal Confidentiality of Alcohol and Drug Abuse Patient Records regulations: The Federal rules restrict any use of the information to criminally investigate or prosecute any alcohol or drug abuse patient.[facility]In the event this information is protected by the Federal Confidentiality of Alcohol and Drug Abuse Patient Records regulations: The Federal rules restrict any use of the information to criminally investigate or prosecute any alcohol or drug abuse patient.[facility]In the event this information is protected by the Federal Confidentiality of Alcohol and Drug Abuse Patient Records regulations: The Federal rules restrict any use of the information to criminally investigate or prosecute any alcohol or drug abuse patient.[facility]In the event this information is protected by the Federal Confidentiality of Alcohol and Drug Abuse Patient Records regulations: The Federal rules restrict any use of the information to criminally investigate or prosecute any alcohol or drug abuse patient.[facility]In the event this information is protected by the Federal Confidentiality of Alcohol and Drug Abuse Patient Records regulations: The Federal rules restrict any use of the information to criminally investigate or prosecute any alcohol or drug abuse patient.[facility]In the event this information is protected by the Federal Confidentiality of Alcohol and Drug Abuse Patient Records regulations: The Federal rules restrict any use of the information to criminally investigate or prosecute any alcohol or drug abuse patient.[facility]In the event this information is protected by the Federal Confidentiality of Alcohol and Drug Abuse Patient Records regulations: The Federal rules restrict any use of the information to criminally investigate or prosecute any alcohol or drug abuse patient.[facility]In the event this information is protected by the Federal Confidentiality of Alcohol and Drug Abuse Patient Records regulations: The Federal rules restrict any use of the information to criminally investigate or prosecute any alcohol or drug abuse patient.[facility]In the event this information is protected by the Federal Confidentiality of Alcohol and Drug Abuse Patient Records regulations: The Federal rules restrict any use of the information to criminally investigate or prosecute any alcohol or drug abuse patient.[facility]In the event this information is protected by the Federal Confidentiality of Alcohol and Drug Abuse Patient Records regulations: The Federal rules restrict any use of the information to criminally investigate or prosecute any alcohol or drug abuse patient.[facility]In the event this information is protected by the Federal Confidentiality of Alcohol and Drug Abuse Patient Records regulations: The Federal rules restrict any use of the information to criminally investigate or prosecute any alcohol or drug abuse patient.[facility]In the event this information is protected by the Federal Confidentiality of Alcohol and Drug Abuse Patient Records regulations: The Federal rules restrict any use of the information to criminally investigate or prosecute any alcohol or drug abuse patient.[facility] CenterIn the event this information is protected by the Federal Confidentiality of Alcohol and Drug Abuse Patient Records regulations: The Federal rules restrict any use of the information to criminally investigate or prosecute any alcohol or drug abuse patient.[facility] Reason for Visit (unrecogniz ed section and [...] & PELVIS W/CONTRAST Jagjit Cheema MD [address] [place] [address] [address] [place] [address] Referral ID Status Reason Start Date Expiration Date V isits Requested Visits Authorized [id number] Closed Financial Clearance Not Required 03/08/2024 04/07/2025 2 2 Reason Comments Radio Gen RMP Specialty Diagnoses / Procedures Referred By Contac t Referred To Contact XR IMAGING Diagnoses Pain Procedures XR FOOT GENERAL 3V AP/LAT/OBL RIGHT RADEX FOOT COMPLETE MINIMUM 3 VIEWS Oliva Gutierrez PA-C [address] [place] [address] [place] [id number] Referral ID Status Reason Start Date Expiration Date V isits Requested Visits Authorized [id number] Closed Auto-Generate d Referral 09/08/2021 10/08/2022 1 [...] MDM 60 MINUTES Jagjit Cheema MD [address] [place] [address] Phone: tel: fax: Referral ID Status Reason Start Date Expiration Date V isits Requested Visits Authorized [id number] Closed PCP Requested Referral 12/24/2024 12/24/2025 1 1 Care Teams (unrecognized sec tion and content) Disability Case Manager Relationship Specialty Start Date End Date Jagjit Cheema MD [address] [place] [address] PCP - General Family Practice 04/13/12 Disability Case Manager Relationship Specialty Start Date End Date Jagjit Cheema MD [address] [place] [address] PCP - General Family Practice 04/13/12 Disability Case Manager Relationship Specialty [place] [address] [place] [address] [place] [address] PCP - General Family Practice 04/13/12 Disability Case Manager Relationship Specialty Start Date End Date Jagjit Cheema MD [address] [place] [address] [place] [address] PCP - General Family Practice 04/13/12 Disability Case Manager Relationship Specialty Start Date End Date Jagjit Cheema MD [address] [place] [address], [place] [address] PCP - General Family Practice 04/13/12 Disability Case Manager Relationship Specialty Start Date End Date Jagjit Cheema MD [address] [place] [address] PCP - General Family Practice 04/13/12 Disability Case Manager Relationship Specialty Start Date End Date Jagjit Cheema MD [address] [place] [address] PCP - General Family Practice 04/13/12 Disability Case Manager Relationship Specialty Start Date End Date Jagjit Cheema MD [address] [place] [address] PCP - General Family Practice 04/13/12 Disability Case Manager Relationship Specialty Start Date End Date Jagjit Cheema MD [address] [place] [address] PCP - General Family Practice 04/13/12 Disability Case Manager Relationship Specialty Start Date End Date Jagjit Cheema MD [address] [place] [address] PCP - General Family Practice 04/13/12 Disability Case Manager Relationship Specialty Start Date End Date Jagjit Cheema MD [address] [place] [address] PCP - General Family Practice 04/13/12 Disability Case Manager Relationship Specialty Start Date End Date Jagjit Cheema MD [address] [place] [address] PCP - General Family Medicine 04/13/12 Disability Case Manager Relationship Specialty Start Date End Date Jagjit Cheema MD [address] [place] [address] PCP - General Family Medicine 04/13/12 Team [...] Provider, Referring Provider Active Hussein Gramajo NP, TECHNOLOGY DIRECTOR-C Attending Provider Active Team Status: Active Member Role Status Dates Dr. Jagjit Cheema MD Primary Care Provider Active Dr. [place] Alfred MD Attending Provider Active Team Status: Inactive Member Role Status Dates Dr. Jagjit Cheema MD Primary Care Provider, Referring Provider Active Aparna Gooden TECHNOLOGY DIRECTOR, TECHNOLOGY DIRECTOR-C Attending Provider Active Team Status: Active Member [...] MD Attending Provider, Emergency Provid er Active Disability Case Manager Relationship Specialty Start Date End Date Jagjit Cheema MD [address] [place], [place] [address] PCP - General Family Medicine 04/13/12 Disability Case Manager Relationship Specialty Start Date End Date Jagjit Cheema MD [address] [place], [place] [id number] PCP - General Family Medicine 04/13/12 Disability Case Manager Relationship Specialty Start Date End Date Jagjit Cheema MD [address] [place] [address] PCP - General Family Medicine 04/13/12 Disability Case Manager Relationship Specialty Start Date End Date Jagjit Cheema MD [address] [place] [address] PCP - General Family Medicine 04/13/12 Disability Case Manager Relationship Specialty Start Date End Date Jagjit Cheema MD [address] [place] [address] PCP - General Family Medicine 04/13/12 Disability Case Manager Relationship Specialty Start Date End Date Jagjit Cheema MD [address] [place] [address] PCP - General Family Medicine 04/13/12 Disability Case Manager Relationship Specialty Start Date End Date Jagjit Cheema MD [address] [place] [address] PCP - General Family Medicine 04/13/12 Team [...] Dr. Librado Bah DO Attending Provider Active Disability Case Manager Relationship Specialty Start Date End Date Jagjit Cheema MD [address] [place] [address] PCP - General Family Medicine 04/13/12 Disability Case Manager Relationship Specialty Start Date End Date Jagjit Cheema MD [address] [place], [place] [address]86311 PCP - General Family Medicine 04/13/12 Disability Case Manager Relationship Specialty Start Date End Date Jagjit Cheema MD [address] [place] [address] PCP - General Family Medicine 04/13/12 Disability Case Manager Relationship Specialty Start Date End Date Jagjit Cheema MD [address] [place] [address] PCP - General Family Medicine 04/13/12 Disability Case Manager Relationship Specialty Start Date End Date Jagjit Cheema MD [address] [place], [place] [address] PCP - General Family Medicine 04/13/12 Team Status: Active Member Role Status Dates Dr. Jagjit Cheema MD Primary Care Provider Active GEOFF SAMUELS Attending Provider Active Team Status: Inactive Member Role Status Dates Dr. Jagjit Cheema MD Primary Care Provider Active GEOFF SAMUELS Attending Provider Active Disability Case Manager Relationship Specialty Start Date End Date Jagjit Cheema MD [address] [place], [place] [address] PCP - General Family Medicine 04/13/12 Team Status: Inactive Member Role Status Dates Dr. Jagjit Cheema MD Primary Care Provider, Referring Provider Active Aparna Gooden NP, TECHNOLOGY DIRECTOR-C Active Dr. Flores Glover MD Attending Provider Active Team Status: Inactive Member Role Status Dates Dr. Jagjit Cheema MD Primary Care Provider Active TRAV MCGEE NP-C Attending Provider, Referring Pro vider Active Dr. Flores Glover MD Other Provider Active Disability Case Manager Relationship Specialty Start Date End Date Jagjit Cheema MD [address] [place] [address] PCP - General Family Medicine 04/13/12 Disability Case Manager Relationship Specialty Start Date End Date Jagjit Cheema MD [address] [place] [address] PCP - General Family Medicine 04/13/12 Disability Case Manager Relationship Specialty Start Date End Date Jagjit Cheema MD [address] [place] [address] PCP - General Family Medicine 04/13/12 Team [...] MD Attending Provider, Referring Pr ovider Active Disability Case Manager Relationship Specialty Start Date End Date Jagjit Cheema MD [address] [place] [address] PCP - General Family Medicine 04/13/12 Disability Case Manager Relationship Specialty Start Date End Date Jagjit Cheema MD [address] [place], [place] 8[address]31 PCP - General Family Medicine 04/13/12 Disability Case Manager Relationship Specialty Start Date End Date Jagjit Cheema MD [address] [place], [place] [address]111 PCP - General Family Medicine 04/13/12 Disability Case Manager Relationship Specialty Start Date End Date Jagjit Cheema MD [address] [place] [address] PCP - General Family Medicine 04/13/12 Disability Case Manager Relationship Specialty Start Date End Date Jagjit Cheema MD [address] [place], [place] [address] PCP - General Family Medicine 04/13/12 Disability Case Manager Relationship Specialty Start Date End Date Jagjit Cheema MD [address] [place] [address] PCP - General Family Medicine 04/13/12 Disability Case Manager Relationship Specialty Start Date End Date Jagjit Cheema MD [address] [place] [address] PCP - General Family Medicine 04/13/12 Disability Case Manager Relationship Specialty Start Date End Date Jagjit Cheema MD [address] [place] [address] PCP - General Family Medicine 04/13/12 Disability Case Manager Relationship Specialty Start Date End Date Jagjit Cheema MD [address] [place] [address] PCP - General Family Medicine 04/13/12 Disability Case Manager Relationship Specialty Start Date End Date Jagjit Cheema MD [address] [place], [place] [address]331 PCP - General Family Medicine 04/13/12 Disability Case Manager Relationship Specialty Start Date End Date Jagjit Cheema MD [address] [place], [place] 601741 PCP - General Family Medicine 04/13/12 Disability Case Manager Relationship Specialty Start Date End Date Jagjit Cheema MD [address] [place], [place] [address]8061 PCP - General Family Medicine 04/13/12 Disability Case Manager Relationship Specialty Start Date End Date Jagjit Cheema MD [address] [place] [address] PCP - General Family Medicine 04/13/12 Disability Case Manager Relationship Specialty Start Date End Date Jagjit Cheema MD [address] [place] [address] PCP - General Family Medicine 04/13/12 Disability Case Manager Relationship Specialty Start Date End Date Jagjit Cheema MD [address] [place] [address] PCP - General Family Medicine 04/13/12 Disability Case Manager Relationship Specialty Start Date End Date Jagjit Cheema MD [address] [place] [address] PCP - General Family Medicine 04/13/12 Disability Case Manager Relationship Specialty Start Date End Date Jagjit Cheema MD [address] [place] [address] PCP - General Family Medicine 04/13/12 Disability Case Manager Relationship Specialty Start Date End Date Jagjit Cheema MD [address] [place], [place] [address]781 PCP - General Family Medicine 04/13/12 Susan Kerr APRN.CANDLE MOLDER [address] [place] [address] Chief Communications Officer Family [facility] 05/27/24 Beverley Gutierrez APRN.CANDLE MOLDER [address] [facility] [place] [address] Chief Communications Officer [facility] 05/27/24 Disability Case Manager Relationship Specialty Start Date End Date Jagjit Cheema MD [address] [facility] [place] [address] PCP - General Family Medicine 04/13/12 Susan Kerr APRN.CANDLE MOLDER [address] [facility] [address] [facility] 05/27/24 Disability Case Manager Relationship Specialty Start Date End Date Jagjit Cheema MD [address] [facility] [place] [address] PCP - General Family Medicine 04/13/12 Susan Kerr APRN.CANDLE MOLDER [address] [place] [address] [facility] 05/27/24 Disability Case Manager Relationship Specialty Start Date End Date Jagjit Cheema MD [address] [facility] [place] [address] PCP - General Family Medicine 04/13/12 Susan Kerr APRN.CANDLE MOLDER [address] [place] [address] [facility] 05/27/24 Disability Case Manager Relationship Specialty Start Date End Date Jagjit Cheema MD [address] [facility] [place] [address] PCP - General Family Medicine 04/13/12 Susan Kerr APRN.CANDLE MOLDER [address] [facility] [place] [address] Chief Communications Officer Family [facility] 05/27/24 Beverley Gutierrez REMOTE BROADCAST TECHNICIAN.CANDLE MOLDER [address] [place] [address] [facility] 05/27/24 Disability Case Manager Relationship Specialty Start Date End Date Jagjit Cheema MD [address] [place] [address] PCP - General Family Medicine 04/13/12 Susan Kerr APRN.CANDLE MOLDER [address] [place] [address] [facility] 05/27/24 Beverley Gutierrez REMOTE BROADCAST TECHNICIAN.CANDLE MOLDER [address] [place] [address] [facility] 05/27/24 Disability Case Manager Relationship Specialty Start Date End Date Jagjit Cheema MD [address] [place] [address] PCP - General Family Medicine 04/13/12 Susan Kerr REMOTE BROADCAST TECHNICIAN.CANDLE MOLDER [address] [facility] [place] [address] [facility] 05/27/24 Beverley Gutierrez REMOTE BROADCAST TECHNICIAN.CANDLE MOLDER [address] [place] [address] [facility] 05/27/24 Disability Case Manager Relationship Specialty Start Date End Date Jagjit Cheema MD [address] [facility] [address] PCP - General Family Medicine 04/13/12 Susan Kerr APRN.CANDLE MOLDER [address] [place] [address] Chief Communications Officer Family Medicine 05/27/24 Beverley Gutierrez APRN.CANDLE MOLDER [address] [facility] [address] Chief Communications Officer [facility] 05/27/24 Disability Case Manager Relationship Specialty Start Date End Date Jagjit Cheema MD [address] [facility] [address] PCP - General Family Medicine 04/13/12 Susan Kerr REMOTE BROADCAST TECHNICIAN.CANDLE MOLDER [address] [place] [address] Chief Communications Officer Family Medicine 05/27/24 Beverley Gutierrez REMOTE BROADCAST TECHNICIAN.CANDLE MOLDER [address] [place] [address] Chief Communications Officer Family Medicine 05/27/24 Disability Case Manager Relationship Specialty Start Date End Date Jagjit Cheema MD [address] [facility] [place] [address] PCP - General Family Medicine 04/13/12 Susan Kerr APRN.CANDLE MOLDER [address] [place] [address] Chief Communications Officer Family Medicine 05/27/24 Beverley Gutierrez REMOTE BROADCAST TECHNICIAN.CANDLE MOLDER [address] [place] [address] Chief Communications Officer [facility] 05/27/24 Disability Case Manager Relationship Specialty Start Date End Date Jagjit Cheema MD [address] [facility] [place] [address] PCP - General Family Medicine 04/13/12 Susan Kerr, REMOTE BROADCAST TECHNICIAN.CANDLE MOLDER [address] [place] [address] Chief Communications Officer Family Medicine 05/27/24 Beverley Gutierrez REMOTE BROADCAST TECHNICIAN.CANDLE MOLDER [address] [place] [address] [facility] 05/27/24 Disability Case Manager Relationship Specialty Start Date End Date Jagjit Cheema MD [address] [place] [address] PCP - General Family Medicine 04/13/12 Susan Kerr, REMOTE BROADCAST TECHNICIAN.CANDLE MOLDER [address] [place] [address] Chief Communications Officer Family Medicine 05/27/24 Beverley Gutierrez REMOTE BROADCAST TECHNICIAN.CANDLE MOLDER [address] [place] [address] [facility] 05/27/24 Disability Case Manager Relationship Specialty Start Date End Date Jagjit Cheema MD [address] [place] [address] PCP - General Family Medicine 04/13/12 Susan Kerr, REMOTE BROADCAST TECHNICIAN.CANDLE MOLDER [address] [place] [address] Chief Communications Officer [facility] 05/27/24 Beverley Gutierrez REMOTE BROADCAST TECHNICIAN.CANDLE MOLDER [address] [place], [place] 996728 [phone] [facility] 05/27/24 Disability Case Manager Relationship Specialty Start Date End Date Jagjit Cheema MD [address] [place], [place] 1804[address] PCP - General Family Medicine 04/13/12 Susan Kerr, REMOTE BROADCAST TECHNICIAN.CANDLE MOLDER [address] [place], [place] 652871 [phone] [facility] 05/27/24 Beverley Gutierrez REMOTE BROADCAST TECHNICIAN.CANDLE MOLDER [address] [place] [address] [facility] 05/27/24 Disability Case Manager Relationship Specialty Start Date End Date Jagjit Cheema MD [address] [place], [place] 264841 PCP - General Family Medicine 04/13/12 Susan Kerr, REMOTE BROADCAST TECHNICIAN.CANDLE MOLDER [address] [place] [address] [facility] 05/27/24 Beverley Gutierrez REMOTE BROADCAST TECHNICIAN.CANDLE MOLDER [address] [place], [place] 341734 [phone] [facility] 05/27/24 Team Status: Active Member Role Status Dates Dr. Jagjit Cheema MD Primary Care Provider Active Team Status: Inactive Member Role Status Dates Dr. Jagjit Cheema MD Primary Care Provider Active Start: August 16, 2024 End: August 16, 2024 Dr. Jagjit Cheema MD Referring Provider Active Start: August 16, 2024 End: August 16, 2024 Hussein Gramajo TECHNOLOGY DIRECTOR, TECHNOLOGY DIRECTOR-C Attending Provider Active S tart: August 16, 2024 End: August 16, 2024 Team Status: Inactive Member Role Status Dates Dr. Jagjit Cheema MD Primary Care Provider Active Start: October 28, 2024 End: October 28, 2024 Dr. Robby Mclaughlin DO Emergency Provider Active Start: October 28, 2024 End: October 28, 2024 Disability Case Manager Relationship Specialty Start Date End Date Jagjit Cheema MD [address] [facility] [place] [address] PCP - General Family Medicine 04/13/12 Susan Kerr APRN.CANDLE MOLDER [address] [place] [address] [facility] 05/27/24 Beverley Gutierrez REMOTE BROADCAST TECHNICIAN.CANDLE MOLDER [address] [facility] [address] [facility] 05/27/24 Disability Case Manager Relationship Specialty Start Date End Date Jagjit Cheema MD [address] [facility] [address] PCP - General Family Medicine 04/13/12 Susan Kerr APRN.CANDLE MOLDER [address] [place] [address] [facility] 05/27/24 Beverley Gutierrez APRN.CANDLE MOLDER [address] [facility] [place] [address] [facility] Communications [facility] 05/27/24 Team Status: Inactive [...] 2024 End: November 28, 2024 Hussein Gramajo TECHNOLOGY DIRECTOR, TECHNOLOGY DIRECTOR-C Attending Provider Active S tart: November 28, [...] November 21, 2024 End: November 21, 2024 Disability Case Manager Relationship Specialty Start Date End Date Jagjit Cheema MD [address] [facility] [address] PCP - General Family Medicine 04/13/12 Susan Kerr APRN.CANDLE MOLDER [address] [place] [address] Chief Communications Officer Family Medicine 05/27/24 Beverley Gutierrez APRN.CANDLE MOLDER [address] [facility] [place] [address] [facility] Communications [facility] 05/27/24 Disability Case Manager Relationship Specialty Start Date End Date Jagjit Cheema MD [address] [facility] [address] PCP - General Family Medicine 04/13/12 Susan Kerr APRN.CANDLE MOLDER [address] [place] [address] Chief Communications Officer Family Medicine 05/27/24 Beverley Gutierrez REMOTE BROADCAST TECHNICIAN.CANDLE MOLDER [address] [facility] [address] Chief Communications Officer Family Medicine 05/27/24 Disability Case Manager Relationship Specialty Start Date End Date Jagjit Cheema MD [address] [facility] [place] [address] PCP - General Family Medicine 04/13/12 Susan Kerr APRN.CANDLE MOLDER [address] [place] [address] Chief Communications Officer Family Medicine 05/27/24 Beverley Gutierrez APRN.CANDLE MOLDER [address] [place] [address] [facility] 05/27/24 Disability Case Manager Relationship Specialty Start Date End Date Jagjit Cheema MD [address] [facility] [place] [address] PCP - General Family Medicine 04/13/12 Susan Kerr APRN.CANDLE MOLDER [address] [facility] [place] [address] Chief Communications Officer Family Medicine 05/27/24 Beverley Gutierrez APRN.CANDLE MOLDER [address] [place] [address] [facility] Communications [facility] 05/27/24 Disability Case Manager Relationship Specialty Start Date End Date Jagjit Cheema MD [address] [place] [address] PCP - General Family Medicine 04/13/12 Susan Kerr APRN.CANDLE MOLDER [address] [facility] [place] [address] Chief Communications Officer Family Medicine 05/27/24 Beverley Gutierrez APRN.CANDLE MOLDER [address] [place] [address] [facility] Communications [facility] 05/27/24 Disability Case Manager Relationship Specialty Start Date End Date Jagjit Cheema MD [address] [place] [address] PCP - General Family Medicine 04/13/12 Susan Kerr APRN.CANDLE MOLDER [address] [facility] [place] [address] [facility] 05/27/24 Beverley Gutierrez APRN.[facility] [address] [facility] [place] [address] [facility] 05/27/24 Goals (unrecognized section and content) Goals [...] BE BASED ON THE PRIMARY CLINICAL RECORDS. [facility] [employer] [facility]. provides no warranty or guarantee of the accuracy or completeness of information in this document.
[2025-01-31] VITALS (12 sets, daily range): BP systolic 140–168; BP diastolic 60–113; PULSE 58–72; RESP 16–18; TEMP 35.9–37; O2SAT 94–98; BMI 38.4
[2025-01-31] MEDS: 0.9% Saline Lock 10 ML Syringe IV (00:02)
[2025-01-31] MEDS: 0.9% Normal Saline (1000mL) 1,000 ML 100 ML IV (00:02)
[2025-01-31 07:44] LABS: Hematocrit 39.7 % (40-54); Hemoglobin 13.9 g/dL (13.0-16.5); Immature Granulocytes Count 0.010 X10^3/uL (0.0-0.0); Mean Corp Hgb Conc 35.0 g/dL (32-36); Mean Corpuscular Volume 83.1 fL (80-94); Mean Platelet Vol. 11.1 fl (6.2-12.0); NRBC Flagged by Analyzer 0 % (0-5); Platelet Count 141 K/mm3 (150-450); RBC Distribution Width CV 12.8 % (11.6-14.6); RBC Distribution Width SD 38.5 fl (35.1-43.9); Red Blood Count 4.78 M/mm3 (4.6-6.2); White Blood Count 4.0 K/mm3 (4.4-11.0)
[2025-01-31 08:06] LABS: Alcohol, Blood (Medical)-Serum < 10.1 mg/dL (<=10.0)
--- NOTE | 2025-01-31 08:07 | PCM.CONS.C ---
Assessment & Plan Assessment/Plan (1) AV block, 3rd degree: PLAN: Patient presents and is noted to have intermittent high-grade AV block. My suspicion is that the patient has underlying sick sinus syndrome due to the first-degree AV block noted before as well as the left anterior fascicular block. With his symptoms I would recommend that we proceed with a permanent pacemaker implantation. Risk benefits alternatives have been explained to him he understands and agrees to proceed. (2) Syncope: QUALIFIERS: Syncope type: unspecified Qualified Code(s): R55 - Syncope and collapse PLAN: He presents with recurrent syncope which I suspect is secondary to the high-grade intermittent AV block. (3) Paroxysmal atrial flutter: PLAN: Patient has had a previous history of paroxysmal atrial flutter and fibrillation does not appear that he has had any recent episodes Holter monitor previously did not demonstrate any episodes of atrial fibrillation flutter and has not been on any rate limiting medications. At this time I do not think he needs to be anticoagulated. (4) Fatigue: PLAN: He does have a history of fatigue but he also has sleep apnea and with his recent tick bite it raises the question as to whether this may be related to Lyme disease. I am concerned about his recurrent syncope and his previous history and so we will obtain Lyme titers acutely but I do not think that this completely explains his fatigue. My suspicion is that it may be related to intermittent heart block and his first-degree AV block. (5) Coronary artery disease: PLAN: He does have a history of coronary artery disease status post angioplasty and stenting of the left anterior descending artery. Recent stress test did not demonstrate any evidence of ischemia. No ischemic workup will be pursued during this visit. HPI Consult Data Date of Consult: 01/31/25 HPI Narrative HPI Narrative: JERO GARZON, is a 69 M who presents to the emergency room with complaints of presyncope and fatigue which have been going on for the last 2 to 3 weeks or so. He does have a history of previous paroxysmal atrial fibrillation status post cardioversion in 2022 and coronary artery disease status post remote stenting of his left anterior descending artery. His last cardiac catheterization was in 2017 and at that time demonstrated a patent stent in the left anterior descending artery. He says that he has been otherwise well and has have a history of hypertension obstructive sleep apnea being treated with his CPAP device. He had presented to the emergency room in November with chest discomfort his cardiac enzymes were negative and he underwent a myocardial perfusion stress test which was noted to be normal. He also had an echocardiogram which demonstrated an ejection fraction of 65%. Natruretic peptide level was normal at that time. He thinks that he may have been bitten by a tick about a week ago. His previous EKG had demonstrated sinus rhythm with a first-degree AV block and he does have a previous history of paroxysmal atrial fibrillation. He has had at least 1 syncopal episode but no head injury. He was admitted to the telemetry care unit and had episodes of high-grade AV block. Cardiology was called for further evaluation and management. His EKG did demonstrates sinus rhythm with a first-degree AV block and then periods of complete AV block with P waves and no conduction. He has had no definitive fever but he has had fatigue no necessarily myalgias. His white count has been normal. He has never been checked for Lyme disease though he thinks he may have had a tick bite he did not see any bull's-eye phenomenon. He has not been on any anticoagulation or negative rate chronotropic agents. [facility] Medical History Prostate infection History of cardioversion First degree heart block Dyslipidemia Morbid obesity with BMI of 40.0-44.9, adult Paroxysmal atrial flutter Coronary artery disease Thrombocytopenia Failure of outpatient treatment Complicated urinary tract infection Dyspnea Atrial flutter History of shingles Fatigue History of pulmonary embolism Former tobacco use History of TIA (transient ischemic attack) Chest pain Rectal bleeding Pure hypercholesterolemia Acute pyelonephritis Prostate enlargement UTI (urinary tract infection) Dyspnea on exertion Claudication Fibromyalgia BPH (benign prostatic hyperplasia) GERD (gastroesophageal reflux disease) Essential hypertension Atherosclerotic heart disease of [place] coronary artery without angina pectoris Confusion Unstable angina HTN (hypertension) Abnormal myocardial perfusion study H/O percutaneous transluminal coronary angioplasty Abnormal stress test DEENA (obstructive sleep apnea) Pulmonary embolism Obesity Testosterone deficiency Home Medications ?Medication ?Instructions ?Recorded ?Last Taken ?Type albuterol sulfate 90 mcg/actuation 1 - 2 puff inhalation Q6H PRN 07/08/19 02/08/20 History aerosol inhaler Asthma testosterone 4 pump transdermal DAILY low 11/23/21 01/30/25 History testosterone tamsulosin 0.4 mg capsule 0.4 mg PO DAILY prostate 04/29/22 01/30/25 History amlodipine 5 mg tablet 10 mg (2 x 5 mg) PO DAILY htn #90 04/08/24 01/30/25 Rx tabs esomeprazole magnesium 40 mg 40 mg PO BID 10/28/24 01/30/25 History capsule,delayed release finasteride 5 mg tablet 5 mg PO DAILY 10/28/24 01/30/25 History losartan 100 mg tablet 100 mg PO DAILY 10/28/24 01/30/25 History multivitamin (Daily Multi-Vitamin 1 tab PO DAILY 10/28/24 01/30/25 History tablet) oxycodone-acetaminophen 5 mg-325 1 tab PO DAILY PRN pain 10/28/24 Unknown History mg tablet potassium chloride 10 mEq 20 meq PO DAILY 10/28/24 01/30/25 History tablet,extended release atomoxetine 40 mg capsule 100 mg PO DAILY 11/28/24 01/30/25 History semaglutide (weight loss) 0.25 0.25 mg (0.5 mL) subcut QWEEK #2 mL 12/02/24 01/26/25 Rx mg/0.5 mL subcutaneous pen injector (Wegovy) Allergy/AdvReac Type Severity Reaction Status Date / Time Sulfa (Sulfonamide Allergy Unknown Verified 01/30/25 15:46 Antibiotics) Family History Mother CAD (coronary artery disease) Hypertension Hx of CABG Father Hypertension Myocardial infarction Grandfather Myocardial infarction paternal Grandmother Cancer pancreatic CA Grandfather CAD (coronary artery disease) Surgical History Spinal cord stimulator status (~05/2021) History of back surgery History of transurethral resection of prostate History of arthroscopy of right knee History of laparoscopic cholecystectomy Presence of coronary angioplasty implant and graft (~08/2012) Presence of stent in coronary artery (~08/2012) History of left heart catheterization (LHC) History of PTCA (~08/2012) History of tonsillectomy and adenoidectomy History of repair of rotator cuff Social History Smoking Status: Former smoker quit date: 06/19/94 pack-years: 42 how long ago did patient quit smokin second hand exposure: No alcohol intake: current alcohol intake frequency: holidays/special occasions only Alcohol type: beer substance use type: does not use caffeine: Yes Type: carbonated beverages, coffee and tea what type of physical activity do you participate in: none ROS Constitutional Constitutional: Reports malaise and weakness; Denies fever(s) or weight loss Eyes Eyes: Reports systems reviewed and no addt'l complaints, except as documented ENT HEENT: Reports systems reviewed and no addt'l complaints, except as documented Cardiovascular Cardiovascular: Reports palpitations; Denies chest pain at rest, chest pain with activity, dyspnea at rest, dyspnea on exertion, edema or paroxysmal nocturnal dyspnea Respiratory/Chest Respiratory/Chest: Reports shortness of breath with exertion; Denies dyspnea on exertion, productive cough or shortness of breath at rest Gastrointestinal Gastrointestinal: Denies change in bowel habits, nausea, vomiting or weight changes Genitourinary Genitourinary: Denies difficulty urinating Musculoskeletal Musculoskeletal: Denies joint stiffness or muscle weakness Integumentary Integumentary: Denies lesions Neurologic Neurologic: Reports dizziness and syncope Psychiatric Psychiatric: Denies anxiety Endocrine Endocrinology: Denies excessive sweating or fatigue Hematologic/Lymphatic Hematologic/Lymphatic: Denies anemia Allergic/Immunologic Allergic/Immunologic: Denies seasonal rhinorrhea Physical Exam Const alert, oriented x3 and no apparent distress General Appearance: cooperative HEENT hearing grossly normal bilaterally Head and Scalp: atraumatic Eyes EOMs intact bilaterally Neck General: normal visual inspection Chest inspection of chest normal and palpation of chest normal Resp normal respiratory effort Auscultation: clear to auscultation bilaterally Cardio regular rate, regular rhythm, S1 normal heart sound and S2 normal heart sound Jugular Venous Distention: JVD GI normal to inspection, nondistended, normoactive bowel sounds Extremity normal capillary refill and no pedal edema Peripheral Pulses: Yes pulses 2+ throughout and femoral pulses present Skin no rashes or lesions noted Neuro oriented x3 and CN's II-XII intact bilaterally Psych Appearance: grossly normal and appropriate Risk Stratification Risk Stratification Applicable: No Objective Data Vital Signs: Vital Signs Temp Pulse Resp BP Pulse Ox O2 Del Method 96.6 F L 69 16 150/60 H 98 CPAP 01/31/25 05:10 01/31/25 05:10 01/31/25 05:10 01/31/25 05:10 01/31/25 05:10 01/31/25 05:10 Oxygen Delivery Method CPAP Weight: 315 lb 11.231 oz Body Mass Index (BMI) 38.4 Intake & Output: Intake and Output for Last 24 Hours 01/29/25 01/30/25 01/31/25 23:59 23:59 23:59 Intake Total 1000 / 1000 100 / 100 Balance 1000 / 1000 100 / 100 Lab / Micro Data 01/31/25 07:05 01/30/25 16:04 Labs: Laboratory Results - last 24 hr 01/30/25 16:04: WBC 8.0, RBC 5.61, Hgb 16.6 H, Hct 46.8, MCV 83.4, MCH 29.6, MCHC 35.5, RDW Std Deviation 38.2, RDW Coeff of Lito 12.6, Plt Count 193, MPV 11.2, Immature Gran % (Auto) 0.100, Neut % (Auto) 78.9 H, Lymph % (Auto) 13.8 L, [place] % (Auto) 6.5, Eos % (Auto) 0.4, Baso % (Auto) 0.3, Absolute Neuts (auto) 6.3, Absolute Lymphs (auto) 1.10, Nucleated RBC % 0, Sodium 141, Potassium 3.7, Chloride 104, Carbon Dioxide 22.1, Anion Gap 15, BUN 14, Creatinine 1.37 H, Est GFR (MDRD) Non-Af 57 L, BUN/Creatinine Ratio 10.3, Glucose 143 H, Calcium 9.5, Troponin T High Sens 31 H D 01/30/25 17:39: Lactic Acid 1.7, Magnesium 1.9, Total Bilirubin 0.91, Direct Bilirubin 0.38 H, AST 23, ALT 31, Alkaline Phosphatase 62, Total Protein 7.2, Albumin 4.3, Globulin 2.9, Lipase 24 01/30/25 18:01: Troponin T Hi Sens 2 Hr 29 H, Urine Color Yellow, Urine Clarity Clear, Urine pH 7.0, Ur Specific Ursa 1.005, Urine Protein 15 H, Urine Glucose (UA) Normal, Urine Ketones Negative, Urine Occult Blood Negative, Urine Nitrite Negative, Urine Bilirubin Negative, Urine Urobilinogen Normal, Ur Leukocyte Esterase Negative, Urine RBC 0 SEEN, Urine WBC 0 SEEN, Ur Squamous Epith Cells 0 SEEN, Urine Bacteria 0 SEEN, Urine Mucus 0 SEEN 01/30/25 20:05: Troponin T Hi Sens 4Hr 30 H 01/31/25 07:05: WBC 4.0 L, RBC 4.78, Hgb 13.9, Hct 39.7 L, MCV 83.1, MCH 29.1, MCHC 35.0, RDW Std Deviation 38.5, RDW Coeff of Lito 12.8, Plt Count 141 L, MPV 11.1, Immature Gran % (Auto) 0.300, Neut % (Auto) 64.2, Lymph % (Auto) 23.3, [place] % (Auto) 10.4 H, Eos % (Auto) 1.3, Baso % (Auto) 0.5, Absolute Neuts (auto) 2.5, Absolute Lymphs (auto) 0.92, Nucleated RBC % 0, Ethyl Alcohol < 10.1 Cardiology Labs/Tests 01/30/25 16:04: WBC 8.0, RBC 5.61, Hgb 16.6 H, Hct 46.8, MCV 83.4, MCH 29.6, MCHC 35.5, Plt Count 193, MPV 11.2, Immature Gran % (Auto) 0.100, Neut % (Auto) 78.9 H, Lymph % (Auto) 13.8 L, [place] % (Auto) 6.5, Eos % (Auto) 0.4, Baso % (Auto) 0.3, Absolute Neuts (auto) 6.3, Nucleated RBC % 0, Sodium 141, Potassium 3.7, Chloride 104, Carbon Dioxide 22.1, Anion Gap 15, BUN 14, Creatinine 1.37 H, Est GFR (MDRD) Non-Af 57 L, BUN/Creatinine Ratio 10.3, Glucose 143 H, Calcium 9.5 01/30/25 17:39: Lactic Acid 1.7, Magnesium 1.9, Total Bilirubin 0.91, Direct Bilirubin 0.38 H 01/30/25 18:01: Urine Color Yellow, Urine Clarity Clear, Urine pH 7.0, Ur Specific Urs[place] 1.005, Urine Protein 15 H, Urine Glucose (UA) Normal, Urine Ketones Negative, Urine Occult Blood Negative, Urine Nitrite Negative, Urine Bilirubin Negative, Urine Urobilinogen Normal, Ur Leukocyte Esterase Negative, Urine RBC 0 SEEN, Urine WBC 0 SEEN 01/31/25 07:05: WBC 4.0 L, RBC 4.78, Hgb 13.9, Hct 39.7 L, MCV 83.1, MCH 29.1, MCHC 35.0, Plt Count 141 L, MPV 11.1, Immature Gran % (Auto) 0.300, Neut % (Auto) 64.2, Lymph % (Auto) 23.3, [place] % (Auto) 10.4 H, Eos % (Auto) 1.3, Baso % (Auto) 0.5, Absolute Neuts (auto) 2.5, Nucleated RBC % 0 Rhythm: EKG: ECHO: Stress Test: Cardiac Cath: PCI: CT Surgery: Holter monitor: EPS: PPM: CXR: Chest CT Scan: Radiography Diagnostic Testing: Radiology Impression Chest X-Ray 01/30/25 16:45 IMPRESSION: No acute cardiopulmonary disease. Reading Location: [facility] Abdomen/Pelvis CT 01/30/25 16:59 IMPRESSION: No acute abnormalities of the abdomen or pelvis. Diverticulosis. Dense colonic stool which may suggest constipation. Chronic and ancillary findings as above. Reading Location: [facility] Brain CT 01/30/25 16:59 IMPRESSION: No acute intracranial abnormality. Reading Location: [facility] Head/Neck CTA 01/30/25 16:59 IMPRESSION: Normal CTA of the head and neck. Reading Location: [facility]
[2025-01-31 08:21] LABS: Vitamin B12 877 pg/mL (180-914)
[2025-01-31 08:29] LABS: FOLATES,SERUM (FOLIC ACID) 12.90 ng/mL (4.60-34.80)
[2025-01-31 08:42] LABS: D-Dimer Quantitative (DVT/PE) 0.27 FEU/ug/m (0.27-0.49)
[2025-01-31 09:00] LABS: AST(SGOT) 19 U/L (<=37); Alanine Aminotransfer ALT/SGPT 28 U/L (<=46); Albumin, Serum 3.8 g/dL (3.4-4.8); Alkaline Phosphatase 57 U/L (40-129); Anion Gap 11 (5-15); BUN 14 mg/dL (4-19); BUN/Creat Ratio 14.8 RATIO (10-20); Calcium,Total 8.8 mg/dL (7.6-11.0); Carbon Dioxide 21.9 mmol/L (21.0-32.0); Chloride 107 mmol/L (98-108); Estimated Creatinine Clearance 115.50 ml/min (50-250); Globulin 2.1 g/dL (2.2-4.2); Glucose 108 mg/dL (70-99); Potassium 3.7 mmol/L (3.3-5.1)
[2025-01-31] MEDS: 0.9% Normal Saline (1000mL) 1,000 ML 15 ML IV (09:07)
--- NOTE | 2025-01-31 11:01 | PCM.PN.HOSP ---
Reason for Visit Chief Complaint: Chest Pain and Near Syncope. Subjective Subjective Saw patient at bedside this morning, present. Patient was sitting back comfortably in bed, conversing normally, in no acute distress. Reported mild fatigue this morning but does feel proved from yesterday. Denies any chest pain. Patient did have an episode of 14 beats of V. tach noted this morning, was asymptomatic. No other acute concerns at this time. Objective Data Objective Data Vital Signs: Vital Signs Temp Pulse Resp BP Pulse Ox O2 Del Method 98.1 F 63 16 150/70 H 98 Room Air 01/31/25 08:20 01/31/25 08:20 01/31/25 08:20 01/31/25 08:20 01/31/25 08:20 01/31/25 08:20 Oxygen Delivery Method Room Air Weight: 143.2 kg Body Mass Index (BMI) 38.4 Intake & Output: Intake and Output for Last 24 Hours 01/29/25 01/30/25 01/31/25 23:59 23:59 23:59 Intake Total 1000 / 1000 1100 / 1100 Balance 1000 / 1000 1100 / 1100 Lab / Micro Data 01/31/25 07:05 01/31/25 07:05 Labs: Laboratory Results - last 24 hr 01/30/25 16:04: WBC 8.0, RBC 5.61, Hgb 16.6 H, Hct 46.8, MCV 83.4, MCH 29.6, MCHC 35.5, RDW Std Deviation 38.2, RDW Coeff of Lito 12.6, Plt Count 193, MPV 11.2, Immature Gran % (Auto) 0.100, Neut % (Auto) 78.9 H, Lymph % (Auto) 13.8 L, Pope % (Auto) 6.5, Eos % (Auto) 0.4, Baso % (Auto) 0.3, Absolute Neuts (auto) 6.3, Absolute Lymphs (auto) 1.10, Nucleated RBC % 0, Sodium 141, Potassium 3.7, Chloride 104, Carbon Dioxide 22.1, Anion Gap 15, BUN 14, Creatinine 1.37 H, Est GFR (MDRD) Non-Af 57 L, BUN/Creatinine Ratio 10.3, Glucose 143 H, Calcium 9.5, Troponin T High Sens 31 H D 01/30/25 17:39: Lactic Acid 1.7, Magnesium 1.9, Total Bilirubin 0.91, Direct Bilirubin 0.38 H, AST 23, ALT 31, Alkaline Phosphatase 62, Total Protein 7.2, Albumin 4.3, Globulin 2.9, Lipase 24 01/30/25 18:01: Troponin T Hi Sens 2 Hr 29 H, Urine Color Yellow, Urine Clarity Clear, Urine pH 7.0, Ur Specific Rodman 1.005, Urine Protein 15 H, Urine Glucose (UA) Normal, Urine Ketones Negative, Urine Occult Blood Negative, Urine Nitrite Negative, Urine Bilirubin Negative, Urine Urobilinogen Normal, Ur Leukocyte Esterase Negative, Urine RBC 0 SEEN, Urine WBC 0 SEEN, Ur Squamous Epith Cells 0 SEEN, Urine Bacteria 0 SEEN, Urine Mucus 0 SEEN 01/30/25 20:05: Troponin T Hi Sens 4Hr 30 H 01/31/25 07:05: WBC 4.0 L, RBC 4.78, Hgb 13.9, Hct 39.7 L, MCV 83.1, MCH 29.1, MCHC 35.0, RDW Std Deviation 38.5, RDW Coeff of Lito 12.8, Plt Count 141 L, MPV 11.1, Immature Gran % (Auto) 0.300, Neut % (Auto) 64.2, Lymph % (Auto) 23.3, Pope % (Auto) 10.4 H, Eos % (Auto) 1.3, Baso % (Auto) 0.5, Absolute Neuts (auto) 2.5, Absolute Lymphs (auto) 0.92, Nucleated RBC % 0, D-Dimer Quant (PE/DVT) 0.27, Sodium 140, Potassium 3.7, Chloride 107, Carbon Dioxide 21.9, Anion Gap 11, BUN 14, Creatinine 0.96, Estim Creat Clear Calc 115.50, Est GFR (MDRD) Non-Af 87, BUN/Creatinine Ratio 14.8, Glucose 108 H, Hemoglobin A1c 5.4, Calcium 8.8, Phosphorus 3.7, Total Bilirubin 0.54, AST 19, ALT 28, Alkaline Phosphatase 57, Total Protein 5.9, Albumin 3.8, Globulin 2.1 L, Albumin/Globulin Ratio 1.8, Vitamin B12 877, Serum Folate 12.90, TSH 1.800, Ethyl Alcohol < 10.1 Radiography Diagnostic Testing: Radiology Impression Chest X-Ray 01/30/25 16:45 IMPRESSION: No acute cardiopulmonary disease. Reading Location: [facility] Abdomen/Pelvis CT 01/30/25 16:59 IMPRESSION: No acute abnormalities of the abdomen or pelvis. Diverticulosis. Dense colonic stool which may suggest constipation. Chronic and ancillary findings as above. Reading Location: [facility] Brain CT 01/30/25 16:59 IMPRESSION: No acute intracranial abnormality. Reading Location: [facility] Head/Neck CTA 01/30/25 16:59 IMPRESSION: Normal CTA of the head and neck. Reading Location: [facility] Physical Exam Const alert, oriented x3 and no apparent distress Constitutional Narrative: Pleasant upper middle-aged male, class II obesity, mildly fatigued appearing but otherwise sitting back comfortably in bed, conversing normally, in no acute distress. General Appearance: cooperative and comfortable HEENT normocephalic, head/scalp atraumatic, hearing grossly normal bilaterally, nasal mucous membranes and turbinates normal and moist oral mucous membranes Eyes PERRL, EOMs intact bilaterally and conjunctivae normal Neck full ROM Chest inspection of chest normal Resp normal respiratory effort, normal air movement, no use of accessory muscles and clear to auscultation bilaterally Cardio regular rate, regular rhythm, no murmurs and peripheral pulses 2+ throughout GI normal to inspection, nondistended, normoactive bowel sounds, soft to palpation, non-tender and non-distended Back/Spine normal ROM Extremity normal to inspection, full ROM and no pedal edema Skin no rashes or lesions noted Psych mental status grossly normal Assessment & Plan Assessment/Plan (1) AV block, 3rd degree: PLAN: Plan Patient is a 69-year-old male who presented to [facility] ED on 01/30/2025 with chest pain and presyncopal episodes. 1. Third-degree AV block with presyncopal symptoms ? Cardiology following. Noted to have third-degree AV block on EKG on admit. Cardiology suspected underlying sick sinus syndrome due to known first-degree AV block along with left anterior fascicular block. S/p permanent pacemaker placement on afternoon of 01/31. Tolerated procedure well, no intraoperative complications noted. Continue cardiac monitoring. Further management per cardiology. 2. Episode of V. tach; history of CAD with stenting, hypertension, hyperlipidemia, paroxysmal atrial flutter ? Cardiology following as above. Patient noted to have episode of 14 beat run of V. tach on morning of 01/31, was asymptomatic. Given this and history of CAD with stenting, had left heart cath done prior to pacemaker placement that showed dominant RCA with only moderate disease and patent LAD stent noted. Echo post cath showed EF 60%, moderate concentric LV hypertrophy, moderately enlarged LA, no other concerning findings. Continue cardiac monitoring as above. Okay to continue home amlodipine and losartan. Follows with cardiology in the office and per recent office note, he is not on atorvastatin as his LDL was less than 70 recently; cardiology encouraged that he continue the statin but he self discontinued it. Was previously on Eliquis for paroxysmal A-fib but had cardioversion done in 2022 and has had no recurrence of A-fib since then so due to cost he discontinued Eliquis. Will start baby aspirin at this time. Continue cardiac monitoring as above. 3. Fatigue ? Suspect this is primarily due to third-degree heart block as above. However, patient did endorse recent tick bite about 1 to 2 weeks ago and with heart issues as above, there is some concern for Lyme disease. Lyme antibody ordered but will take several days to return. Will hold off on doxycycline at this time. 4. Recent diagnosis of prostatitis, history of BPH with obstructive symptoms and remote history of prostatitis ? Follows with Dr. Ramos. Had episode of prostatitis about 6 to 7 years ago that led to sepsis. No recurrence since then until recently when he began to have urinary pain and discomfort. Started on p.o. ciprofloxacin 4 days prior to admission; will continue during this hospitalization. Continue home Flomax and finasteride. Chronic medical conditions: ? Class II obesity with DEENA: BMI 38 on admit. Complicates hospital course and care. Continue home PAP therapy at night. ? GERD: Continue home PPI. ? Asthma: Continue home albuterol inhaler as needed. ? History of low back pain with spinal cord stimulator placement ? Former tobacco use: Encouraged continued cessation. ? Testosterone deficiency: Holding home testosterone therapy while inpatient. DVT prophylaxis: Lovenox CODE STATUS: Full code, verified Expected disposition: Home, 1 to 2 days Total clinical time spent by myself addressing the patient's medical issues, reviewing all the data, and collaborating with patient's care team: 35 minutes. Charges/Coding Visit Charges Inpatient E&M: 44610 Subs Hosp L2
--- NOTE | 2025-01-31 11:42 | CL.D_ITS ---
Patient Name: JERO GARZON Study Date: 01/31/2025 Performing: Sergo Perez MD Ht: 76 inches 193.04 cm : 1955 Wt: 315.7 lbs 143.2 kg Age: 69 Gender: male BSA: 2.69 PROCEDURE(S) PERFORMED DC01-([id number])LHC/COR/LV CLINICAL PROFILE AND INDICATIONS Indications: Cardiac Arrythmia Heart Failure: None Stress/Imaging Date: 12/01/24Stress Test with SPECT MPI: Negative CAD Presentations: Symptom unlikely to be ischemic. CONCLUSIONS Dominant vessel right coronary artery with moderate disease and previously placed into the left anterior descending artery which is noted to be patent. RECOMMENDATIONS Medical therapy DESCRIPTION OF PROCEDURE The patient arrived to the procedure lab. The risks and benefits of the procedure as well as a full description of our services here and current unavailability of surgical backup were fully explained to the patient and/or their significant other prior to the catheterization. The Timeout was completed, verifying the correct patient and procedure. The patient's procedural site was prepped and draped in the usual fashion. Local anesthetic was given subcutaneously to right radial region with Lidocaine 2%. Using a modified Seldinger technique, arterial access was obtained via the right radial artery, a 6Fr sheath was inserted. Right Coronary Artery selective angiography was then performed in multiple views using a 5 Fr. 4.0 Clyde catheter. Left Coronary Artery selective angiography was performed in multiple views using a 5 Fr. 4.0 Clyde catheter.The arterial sheath was pulled and a TR Band was applied for hemostasis CORONARY ANGIOGRAPHY DOMINANCE: Right Dominant LEFT HEART ASSESSMENT Left Ventricular Ejection Fraction: by Echo 60 % Normal Left Ventricular systolic function LEFT MAIN: Angiographically normal LEFT ANTERIOR DESCENDING ARTERY: Previously placed stent in the left anterior descending artery is noted to be patent. There is a jailed diagonal vessel with ostial 70 to 80% stenosis CIRCUMFLEX ARTERY: Nondominant vessel with moderate 50% proximal stenosis and distal mild diffuse disease RIGHT CORONARY ARTERY: Dominant right coronary artery with moderate 60% stenosis and mild diffuse disease noted. COMPLICATIONS PROCEDURE MEDICATIONS Versed 1 mg IV Fentanyl 50 mcg IV Fentanyl 50 mcg IV Aspirin (325mg) 1 Tabs PO @ 01/31/2025 10:53:55 Heparin given IA 01/31/2025 11:10:51 SUMMARY OF HEMODYNAMIC DATA Time AIR REST ECG 10:56:31 AO 126/74 (96) SA 11:16:55 Signed By Sergo Perez MD On 01/31/2025 11:42:20 Sergo Perez MD
--- NOTE | 2025-01-31 14:04 | CL.IE_ITS ---
Patient: JERO GARZON Study Date: 01/31/2025 Performing: Sergo Perez MD : 1955 Age: 69 Gender: male PROCEDURES PERFORMED DC02-([id number])LHC/COR LP04-([id number])INITIAL PACER INSERT+DUAL LEADS INDICATIONS Other second degree AV block. 2:1 heart block PROCEDURE DETAILS The patient was brought to the Catheterization Lab in the postabsorptive nonsedated state. Informed consent was obtained prior to the procedure. Local anesthetic was given subcutaneously to the left upper chest area with Lidocaine 2%. Incision was made to the left upper chest. Access was achieved and a guidewire was advanced into the left subclavian vein. PPM ventricular lead was inserted / positioned to right ventricular apex. PPM ventricular lead testing performed. PPM ventricular lead testing performed. PPM atrial lead was inserted / positioned to the right atrial appendage. PPM atrial lead testing performed. The Atrial lead sutured in place with 2-0 Silk. The Ventricular PM lead sutured in place with 2-0 Silk. Device pocket was irrigated with antibiotic, Ancef 1gm. PPM generator was attached to the lead(s) and inserted into the pocket. PPM generator was then interrogated by the sas programmer remote. Subcutaneous closure was completed with 3-0 Vicryl. Skin closure was completed with 4-0 Vicryl. The patient tolerated the procedure well. Estimated Blood Loss: 25 ml's IMPLANTED / EX-PLANTED DEVICES IMPLANTED DEVICE(S): PPM Ventricular lead - Call Centre Supervisor: [employer], Model # [id number] , Serial # [id number] PPM Atrial lead - Call Centre Supervisor: [employer], Model # [id number] , Serial # [id number] PPM Generator - Call Centre Supervisor: [employer], Model # [id number] , Serial # [id number] DEVICE PARAMETERS ATRIAL LEAD PARAMETERS: P wave- 5 (mV) threshold- 0.5 (V) impedence- 430 (OHMS) VENTRICULAR LEAD PARAMETERS: R wave- 6.5 (mV) threshold- 0.5 (V) impedence- 560 (OHMS) DEVICE PARAMETERS: Mode- DDDR Lower rate- 60 Upper rate- 130 CONCLUSIONS / RECOMMENDATIONS Device Conclusions: Successful implantation of a dual chamber pacemaker Device Recommendations: Follow up with Primary Care Physician PROCEDURE MEDICATIONS Versed 1 mg IV Fentanyl 50 mcg IV Fentanyl 50 mcg IV Versed 1 mg IV Versed 1 mg IV Fentanyl 25 mcg IV Versed 1 mg IV Fentanyl 25 mcg IV Fentanyl 25 mcg IV Fentanyl 50 mcg IV Versed 1 mg IV Antibiotic given in appropriate timeframe. Aspirin (325mg) 1 Tabs PO 01/31/2025 10:53:55 Ancef 2 Gm IV @ 01/31/2025 11:50:18 Heparin given IA 01/31/2025 11:10:51 Signed By Sergo Perez MD On 01/31/2025 14:03:40 Sergo Perez MD
--- NOTE | 2025-01-31 14:43 | CASEMGMT ---
Addendum entered by Karolina Donahue 01/31/25 14:59: Strata: 2 Original Note: RN?CM?LEGAL TRANSCRIPTIONIST?CM?to room to meet with patient for initial transition planning/care coordination?assessment.?RN?CM?introduced self and role at [facility].? Pt voices understanding and consents to?assessment?at this time.? Pt resting in bed in no distress at this time.? Ex- @ bedside & pt states they are now back together. Pt is A/O at this time and answers all questions appropriately.?? Care providers, pharmacy, and demographics verified/updated at this time. PCP: Dr Myers Specialists: [facility]/cardiology Preferred [facility]acy: [facility] Insurance: Erendira RAYMOND Prescription Benefit:?Yes, [employer] LNOK: 2 adult children: SonEdwin. Daughter, Lucila. Living Arrangements: Lives alone in one-story home w/one step to enter. Independent w/ADL's and IADL's and manages his own medications. Transportation:?Pt states drives self and states no transportation concerns at this time.? DME: ?States has the following DME:?CPAP from [facility]. ?Pt states no need for further DME at this time.? HHC/SNF: No hx. Denies needs and no needs identified. Pt wishes to return home and states has no concerns with going home at time of discharge. PLAN:??[facility] CLANCYN?RN?CM
[2025-01-31] MEDS: Potassium Chloride Oral Tablet 20 MEQ PO (14:53)
[2025-02-01] VITALS (7 sets, daily range): BP systolic 153–172; BP diastolic 69–85; PULSE 64–72; RESP 18; TEMP 36.4; O2SAT 96–99; BMI 38.4
[2025-02-01] MEDS: 0.9% Saline Lock 10 ML Syringe IV (05:01)
--- NOTE | 2025-02-01 05:27 | RAD_ITS ---
PROCEDURE: CHEST 3 VIEW 02/01/2025 REASON FOR EXAM: POST PERMANENT ICD/PACEMAKER TECHNIQUE: CHEST 3 VIEW COMPARISON: 01/30/2025. FINDINGS: AICD is in good position. Interval appearance of mild bilateral basilar atelectatic pulmonary changes. Limited evaluation of the right lung base is limited secondary to superimposed patient's left upper extremity. There is no demonstrated pleural abnormality. Normal heart and pericardium. Normal mediastinum and whit. Normal visualized pulmonary arteries. Normal visualized aortic arch and descending thoracic aorta. Normal visualized thoracic spine. Normal visualized ribs, clavicles, and shoulders. There is no demonstrated abnormality of the visualized soft tissue structures of the upper abdomen. RAD/Chest 3 View IMPRESSION: Interval appearance of mild bilateral basilar atelectatic pulmonary changes. Reading [facility]
[2025-02-01 07:37] LABS: Hematocrit 42.7 % (40-54); Hemoglobin 14.9 g/dL (13.0-16.5); Mean Corp Hgb Conc 34.9 g/dL (32-36); Mean Corpuscular Volume 83.6 fL (80-94); Mean Platelet Vol. 11.2 fl (6.2-12.0); Platelet Count 145 K/mm3 (150-450); RBC Distribution Width CV 12.9 % (11.6-14.6); RBC Distribution Width SD 38.8 fl (35.1-43.9); Red Blood Count 5.11 M/mm3 (4.6-6.2); White Blood Count 5.8 K/mm3 (4.4-11.0)
[2025-02-01 08:04] LABS: Anion Gap 13 (5-15); BUN 11 mg/dL (4-19); BUN/Creat Ratio 13.2 RATIO (10-20); Calcium,Total 8.9 mg/dL (7.6-11.0); Carbon Dioxide 20.5 mmol/L (21.0-32.0); Chloride 104 mmol/L (98-108); Estimated Creatinine Clearance 127.45 ml/min (50-250); Glucose 109 mg/dL (70-99); Potassium 3.5 mmol/L (3.3-5.1)
--- NOTE | 2025-02-01 09:46 | DCINST_ITS ---
Discharge Instructions DC O2, CPAP, BIPAP needs Home O2 Discharge instructions: No Dressing / Incision Discharge Activity: May Not Drive May shower in (days): 2 Additional Activity Instructions:: May shower or bathe on [day 3]. Do not scrub the incision or soak in the tub. Just wash with soap and let the water run over the incision. Gently pat dry with towel. Medications: Take your pain medication as directed. Refer to your discharge instruction sheet for a list of medications you are to take. Dressing / Incision Call your doctor if your incision/area has: Continuous Slow Oozing, Sudden Increased Bleeding, Increased Pain/ Swelling, Increased Redness, Foul Smelling Discharge and Swelling at the incision site Call your doctor if you observe: Fever of 101 or Higher, Shortness of breath, Dizziness, Fainting spells, Swelling in the ankles, Chest pain, Prolonged hiccupping and Increased palpitations (irregular heartbeat) Suture Line Care: Avoid Pulling/Pushing and Avoid Pinching/Bending Remove Dressing in: do not remove dressing Additional Dressing/Incision Instructions:: When dressing is removed, wash and dry incision. Keep covered with a light bandage if it is rubbing against your clothing. Do not cover the incision with an airtight bandage. Change the bandage daily. Do not remove steri strips. The strips will fall off on their own. Follow Up Care Please Follow Up With: Sergo Perez MD When: Pacer follow-up on February 12. The pacemaker clinic will call you for the exact time. Test Results: Test results from this visit will be discussed in further detail at your follow- up appointment, if applicable. Discharge Plan Admission Admit Date/Time: 01/31/25 14:42 Attending Provider: Librado Bah Primary Care Provider: Jagjit Myers Consulting Providers: Edwin Ellington; Elle Lazcano; Renard Lopez; Roberto Muro; Flores Glover; Ashwin Pulido; Tato Rincon; Sergo Perez; Lalo Joel; Kimberley Snyder; Karl Vo; Denise Haywood; Adam Crow; Makeda,Josep; Timoteo Alcantar; Hussein Gramajo NP; Dyana Alvarez; Willem Dsouza; Lalo Jacobs; Davy Lanier Discharge Orders/Prescriptions Prescriptions: No Action tamsulosin 0.4 mg capsule 0.4 mg PO DAILY testosterone 20.25 mg/1.25 gram (1.62 %) gel in metered-dose pump 4 pump transdermal DAILY Patient Comments: APPLY 4 PUMPS DAILY albuterol sulfate 1 INHALER inhaler 1 - 2 puff INHALATION Q6H PRN (Reason: Asthma) esomeprazole magnesium 40 mg capsule,delayed release(DR/EC) 40 mg PO BID Patient Comments: PT ONLY TAKES ONCE A DAY losartan 100 mg tablet 100 mg PO DAILY potassium chloride 10 mEq tablet extended release 20 meq PO DAILY finasteride 5 mg tablet 5 mg PO DAILY multivitamin [Daily Multi-Vitamin] Tablet 1 tab PO DAILY oxycodone-acetaminophen 5-325 mg tablet 1 tab PO DAILY PRN (Reason: pain) atomoxetine 40 mg capsule 100 mg PO DAILY ciprofloxacin HCl 500 mg tablet 500 mg PO BID amlodipine 5 mg tablet 10 mg PO DAILY Qty: 90 3RF Wegovy 0.25 mg/0.5 mL pen injector 0.25 mg subcut QWEEK Qty: 2 0RF Rx Instructions: administer weeks 1 through 4 of therapy Referrals / Follow Up: Jagjit Myers MD [Primary Care Provider] -
[2025-02-01] MEDS: Potassium Chloride Oral Tablet 20 MEQ PO (09:49)
--- NOTE | 2025-02-01 13:48 | DCINST_ITS ---
Discharge Instructions DC O2, CPAP, BIPAP needs Home O2 Discharge instructions: No Dressing / Incision Discharge Activity: Return to Normal Activity May shower in (days): 2 Weight Bearing Status: Full weight bearing Additional Activity Instructions:: May shower or bathe on [day 3]. Do not scrub the incision or soak in the tub. Just wash with soap and let the water run over the incision. Gently pat dry with towel. Medications: Take your pain medication as directed. Refer to your discharge instruction sheet for a list of medications you are to take. Dressing / Incision Call your doctor if your incision/area has: Continuous Slow Oozing, Sudden Increased Bleeding, Increased Pain/ Swelling, Increased Redness, Foul Smelling Discharge and Swelling at the incision site Call your doctor if you observe: Fever of 101 or Higher, Shortness of breath, Dizziness, Fainting spells, Swelling in the ankles, Chest pain, Prolonged hiccupping and Increased palpitations (irregular heartbeat) Suture Line Care: Avoid Pulling/Pushing and Avoid Pinching/Bending Additional Dressing/Incision Instructions:: When dressing is removed, wash and dry incision. Keep covered with a light bandage if it is rubbing against your clothing. Do not cover the incision with an airtight bandage. Change the bandage daily. Do not remove steri strips. The strips will fall off on their own. Follow Up Care Please Follow Up With: Sergo Perez MD Test Results: Test results from this visit will be discussed in further detail at your follow- up appointment, if applicable. Discharge Plan Admission Admit Date/Time: 01/31/25 14:42 Primary Reason for Your Visit: Third-degree AV block Attending Provider: Librado Bah Primary Care Provider: Jagjit Myers Consulting Providers: Edwin Ellington; Elle Lazcano; Renard Lopez; Roberto Muro; Flores Glover; Ashwin Pulido; Tato Rincon; Sergo Perez; Lalo Joel; Kimberley Snyder; Karl Vo; Denise Haywood; Adam Crow; Josep Ashford; Timoteo Alcantar; Hussein Gramajo NP; Dyana Alvarez; Willem Dsouza; Lalo Jacobs; Davy Lanier Discharge Orders/Prescriptions Prescriptions: Continued tamsulosin 0.4 mg capsule 0.4 mg PO DAILY testosterone 20.25 mg/1.25 gram (1.62 %) gel in metered-dose pump 4 pump transdermal DAILY Patient Comments: APPLY 4 PUMPS DAILY albuterol sulfate 1 INHALER inhaler 1 - 2 puff INHALATION Q6H PRN (Reason: Asthma) esomeprazole magnesium 40 mg capsule,delayed release(DR/EC) 40 mg PO BID Patient Comments: PT ONLY TAKES ONCE A DAY losartan 100 mg tablet 100 mg PO DAILY potassium chloride 10 mEq tablet extended release 20 meq PO DAILY finasteride 5 mg tablet 5 mg PO DAILY multivitamin [Daily Multi-Vitamin] Tablet 1 tab PO DAILY oxycodone-acetaminophen 5-325 mg tablet 1 tab PO DAILY PRN (Reason: pain) atomoxetine 40 mg capsule 100 mg PO DAILY ciprofloxacin HCl 500 mg tablet 500 mg PO BID amlodipine 5 mg tablet 10 mg PO DAILY Qty: 90 3RF Wegovy 0.25 mg/0.5 mL pen injector 0.25 mg subcut QWEEK Qty: 2 0RF Rx Instructions: administer weeks 1 through 4 of therapy Referrals / Follow Up: Sergo Perez MD [Med Staff - Active Staff] - See Referral Note (As scheduled) Jagjit Myers MD [Primary Care Provider] - Disposition Disposition (needs filled in before D/C Order can be placed): Home, Self Care
--- NOTE | 2025-02-01 13:55 | PCM.DC.SUM ---
Providers Date of Admission: 01/31/25 Date of Discharge: 02/01/25 Primary Care Physician: Dr. Jagjit Myers MD Consultations 01/30/25 23:38 Consult: Cardiology Routine Consulting Provider: Stephani Stevens Reason for Consult: Chest pain and syncope; with recent negative stress test EMERGENT Consult: No MD Notified: Yes Date Notified: 01/31/25 Time Notified: 06:50 Method of Notification: Text Method of Consult:: In-Person Reason For Visit: CHEST PAIN AND SYNCOPE/PRESYNCOPE Diagnosis Discharge Diagnosis (1) AV block, 3rd degree: Status: Acute Code(s): I44.2 - Atrioventricular block, complete Plan 1. Second-degree AV block with 2-1 heart block #2 noncardiac chest pain #3 presyncope secondary to high-grade heart block #4 syncope secondary to high-grade heart block #5 nonocclusive coronary disease Medications at Discharge Home Medications albuterol sulfate 90 mcg/actuation aerosol inhaler 1 - 2 puff inhalation Q6H PRN Asthma 07/08/19 testosterone 4 pump transdermal DAILY low testosterone 11/23/21 tamsulosin 0.4 mg capsule 0.4 mg PO DAILY prostate 04/29/22 amlodipine 5 mg tablet 10 mg (2 x 5 mg) PO DAILY htn #90 tabs 04/08/24 esomeprazole magnesium 40 mg capsule,delayed release 40 mg PO BID reflux 10/28/24 finasteride 5 mg tablet 5 mg PO DAILY prostate 10/28/24 losartan 100 mg tablet 100 mg PO DAILY blood pressure 10/28/24 multivitamin (Daily Multi-Vitamin tablet) 1 tab PO DAILY vitamin 10/28/24 oxycodone-acetaminophen 5 mg-325 mg tablet 1 tab PO DAILY PRN pain 10/28/24 potassium chloride 10 mEq tablet,extended release 20 meq PO DAILY supplement 10/28/24 atomoxetine 40 mg capsule 100 mg PO DAILY ADD 11/28/24 semaglutide (weight loss) 0.25 mg/0.5 mL subcutaneous pen injector (Wegovy) 0.25 mg (0.5 mL) subcut QWEEK weight loss #2 mL 12/02/24 ciprofloxacin HCl 500 mg tablet 500 mg PO BID infection 01/31/25 Hospital Course Operations None Procedures Cardiac catheterization and - (Cardiac pacemaker insertion) Summary of Care Provided Minutes Spent on Discharge: 31 Hospital Course: This 69-year-old white male was seen in the emergency room at [facility] with complaints of chest pain and near syncope at home. Patient also stated that he had a syncopal episode a week prior. Patient had a stress test in November of this year which was unremarkable. Workup in the emergency room showed normal troponin, there was no acute injury pattern on the patient's EKG and his chest x-ray was unremarkable except for mild bilateral basilar atelectatic changes. Patient was admitted to PCU, echocardiogram was performed which showed a normal EF, patient had periods of complete AV block with P waves and no conduction, he was seen in consultation by cardiology and underwent a cardiac catheterization and pacemaker implantation. Cardiac catheterization showed nonocclusive coronary disease there were no complications from his procedures, on 02/01/2025, patient was seen and examined: On examination he appeared in good health and spirits. Vital signs as documented. Skin warm and dry and without overt rashes. Neck without JVD, neck was supple, trachea midline, thyroid was normal. Lungs clear bilaterally, normal air movement was noted. Heart exam notable for regular rhythm, normal sounds and absence of murmurs, rubs or gallops. Abdomen unremarkable and without evidence of organomegaly, masses, or abdominal aortic enlargement. Bowel sounds are present, abdomen is not distended. Extremities nonedematous, no cyanosis was noted, no clubbing was noted. Neuro: Cranial nerves II through XII are grossly intact, no focal motor deficits were noted, sensation to light touch and pinprick intact, motor exam 5/5 throughout. Psych: Patient is alert and oriented x3, he does not appear anxious or depressed, he does not appear agitated. Patient was discharged home in stable condition on 02/01/2025 Weight / BMI Weight Weight: 143.2 kg Body Mass Index (BMI) 38.4 ABG / Lab / Microbiology Data 02/01/25 06:47 02/01/25 06:47 Laboratory: Laboratory Results - last 24 hr 02/01/25 06:47: WBC 5.8, RBC 5.11, Hgb 14.9, Hct 42.7, MCV 83.6, MCH 29.2, MCHC 34.9, RDW Std Deviation 38.8, RDW Coeff of Lito 12.9, Plt Count 145 L, MPV 11.2, Sodium 138, Potassium 3.5, Chloride 104, Carbon Dioxide 20.5 L, Anion Gap 13, BUN 11, Creatinine 0.87, Estim Creat Clear Calc 127.45, Est GFR (MDRD) Non-Af 95, BUN/Creatinine Ratio 13.2, Glucose 109 H, Calcium 8.9, Phosphorus 3.0 Radiography Diagnostic Testing: Radiology Impression Chest X-Ray 02/01/25 05:27 IMPRESSION: Interval appearance of mild bilateral basilar atelectatic pulmonary changes. Reading Location: [id number] D/C Instructions May shower in (days): 2 Weight Bearing Status: Full weight bearing Additional Activity Instructions: May shower or bathe on [day 3]. Do not scrub the incision or soak in the tub. Just wash with soap and let the water run over the incision. Gently pat dry with towel. Medications: Take your pain medication as directed. Refer to your discharge instruction sheet for a list of medications you are to take. Call your doctor if your incision/area has: Continuous Slow Oozing, Sudden Increased Bleeding, Increased Pain/ Swelling, Increased Redness, Foul Smelling Discharge and Swelling at the incision site Call your doctor if you observe: Fever of 101 or Higher, Shortness of breath, Dizziness, Fainting spells, Swelling in the ankles, Chest pain, Prolonged hiccupping and Increased palpitations (irregular heartbeat) Suture Line Care: Avoid Pulling/Pushing and Avoid Pinching/Bending Additional Dressing/Incision Instructions: When dressing is removed, wash and dry incision. Keep covered with a light bandage if it is rubbing against your clothing. Do not cover the incision with an airtight bandage. Change the bandage daily. Do not remove steri strips. The strips will fall off on their own. DC O2, CPAP, BIPAP Needs Home O2 Discharge instructions: No Please Follow Up With: Sergo Perez MD When: Pacer follow-up on February 12. The pacemaker clinic will call you for the exact time. Meaningful Use Info Meaningful Use Meaningful Use Diagnoses (Choose all that apply): None applicable Discharge Plan Admission Admit Date/Time: 01/31/25 14:42 Primary Reason for Your Visit: Third-degree AV block Attending Provider: Librado Bah Primary Care Provider: Jagjit Myers Consulting Providers: Edwin Ellington; Elle Lazcano; Renard Lopez; Roberto Muro; Flores Glover; Ashwin Pulido; Tato Rincon; Sergo Perez; Lalo Joel; Kimberley Snyder; Karl Vo; Denise Haywood; Adam Crow; Josep Ashford; Timoteo Alcantar; Hussein Gramajo NP; Dyana Alvarez; Willem Dsouza; Lalo Jacobs; Davy Lanier Discharge Orders/Prescriptions Prescriptions: Continued tamsulosin 0.4 mg capsule 0.4 mg PO DAILY testosterone 20.25 mg/1.25 gram (1.62 %) gel in metered-dose pump 4 pump transdermal DAILY Patient Comments: APPLY 4 PUMPS DAILY albuterol sulfate 1 INHALER inhaler 1 - 2 puff INHALATION Q6H PRN (Reason: Asthma) esomeprazole magnesium 40 mg capsule,delayed release(DR/EC) 40 mg PO BID Patient Comments: PT ONLY TAKES ONCE A DAY losartan 100 mg tablet 100 mg PO DAILY potassium chloride 10 mEq tablet extended release 20 meq PO DAILY finasteride 5 mg tablet 5 mg PO DAILY multivitamin [Daily Multi-Vitamin] Tablet 1 tab PO DAILY oxycodone-acetaminophen 5-325 mg tablet 1 tab PO DAILY PRN (Reason: pain) atomoxetine 40 mg capsule 100 mg PO DAILY ciprofloxacin HCl 500 mg tablet 500 mg PO BID amlodipine 5 mg tablet 10 mg PO DAILY Qty: 90 3RF Wegovy 0.25 mg/0.5 mL pen injector 0.25 mg subcut QWEEK Qty: 2 0RF Rx Instructions: administer weeks 1 through 4 of therapy Referrals / Follow Up: Sergo Perez MD [Med Staff - Active Staff] - See Referral Note (As scheduled) Jagjit Myers MD [Primary Care Provider] - Disposition Disposition (needs filled in before D/C Order can be placed): Home, Self Care Charges/Coding Visit Charges Inpatient E&M: 36382 Disch Hosp >30min
== END 2025-02-01 14:29 | disposition home or self-care (01) | DRG 244 ==
LOC: ED 22:32 → PCU 23:36
PROVIDERS: Hospitalist; Internal Medicine Cardiovascular Disease; Admitting Provider Internal Medicine; Emergency Provider Student in an Organized Health Care Education/Training Program; PCP Family Medicine; Visit Provider Internal Medicine
DX: I44.2 Atrioventricular block, complete (principal); E29.1 Testicular hypofunction; I34.0 Nonrheumatic mitral (valve) insufficiency; I10 Essential (primary) hypertension; J45.909 Unspecified asthma, uncomplicated; E66.812 Obesity, class 2; I25.10 Atherosclerotic heart disease of native coronary artery without angina pectoris; I48.92 Unspecified atrial flutter; I49.5 Sick sinus syndrome; I48.0 Paroxysmal atrial fibrillation; G47.33 Obstructive sleep apnea (adult) (pediatric); E78.00 Pure hypercholesterolemia, unspecified; M19.90 Unspecified osteoarthritis, unspecified site; K21.9 Gastro-esophageal reflux disease without esophagitis; I44.4 Left anterior fascicular block; Z82.49 Family history of ischemic heart disease and other diseases of the circulatory system; Z95.5 Presence of coronary angioplasty implant and graft; Z87.891 Personal history of nicotine dependence; Z68.38 Body mass index [BMI] 38.0-38.9, adult; R79.89 Other specified abnormal findings of blood chemistry; Z79.899 Other long term (current) drug therapy; Z86.711 Personal history of pulmonary embolism; F90.9 Attention-deficit hyperactivity disorder, unspecified type; Z86.73 Personal history of transient ischemic attack (TIA), and 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 residual deficits; R07.89 Other chest pain; Z99.89 Dependence on other enabling machines and devices
CPT/HCPCS: 33208; 36415; 70450; 70496; 70498; 71045; 71047; 74177; 80048; 80053; 80076; 81001; 82077; 82607; 82746; 83036; 83605; 83690; 83735; 84100; 84443; 84484; 85025; 85027; 85379; 86617; 93005; 93306; 93454; 93880; 94660; 97161; 99152; 99153; 99285; Q9957; Q9967; A4216; C1769; C1894

== ENCOUNTER 2025-02-19 14:14 | Inpatient (IN) | payer MEDICARE, BC, SELFPAY ==
[2025-02-19] VITALS (11 sets, daily range): BP systolic 125–166; BP diastolic 72–100; PULSE 64–104; RESP 13–18; TEMP 36.3–36.7; O2SAT 94–100; BMI 38.1; BMI 37.7
--- NOTE | 2025-02-19 14:19 | EKG12_ITS ---
Test Reason : CP Blood Pressure : */* mmHG Vent. Rate : 76 BPM Atrial Rate : 76 BPM P-R Int : 168 ms QRS Dur : 170 ms QT Int : 456 ms P-R-T Axes : 76 -84 86 degrees QTcB Int : 513 ms Atrial-sensed ventricular-paced rhythm Abnormal ECG Confirmed by SOUTH CONTI, JEN ([id number]), editor greeting card CHARLES CHÁVEZ ([id number]) on 02/21/2025 9:37:21 AM Referred By: Confirmed By: JEN DIA MD
--- NOTE | 2025-02-19 14:38 | RAD_ITS ---
PROCEDURE: CHEST PA AND LATERAL 02/19/2025 REASON FOR EXAM: CHEST PAIN TECHNIQUE: Procedure Code: RADCXR Modality: DX Procedure: CHEST PA AND LATERAL COMPARISON: February 01, 2025 FINDINGS: Hardware: EKG leads. Lower thoracic spine neurostimulator. Heart: Normal Mediastinum: Normal Lungs: Clear. No pneumothorax or pleural effusion. Bones: Degenerative changes are identified within the thoracic spine. RAD/Chest PA and Lateral IMPRESSION: No acute abnormality Reading Location: [id number]
[2025-02-19 14:57] LABS: Hematocrit 43.3 % (40-54); Hemoglobin 15.4 g/dL (13.0-16.5); Immature Granulocytes Count 0.010 X10^3/uL (0.0-0.0); Mean Corp Hgb Conc 35.6 g/dL (32-36); Mean Corpuscular Volume 82.5 fL (80-94); Mean Platelet Vol. 11.1 fl (6.2-12.0); NRBC Flagged by Analyzer 0 % (0-5); Platelet Count 168 K/mm3 (150-450); RBC Distribution Width CV 12.8 % (11.6-14.6); RBC Distribution Width SD 38.6 fl (35.1-43.9); Red Blood Count 5.25 M/mm3 (4.6-6.2); White Blood Count 6.1 K/mm3 (4.4-11.0)
[2025-02-19 15:33] LABS: Anion Gap 12 (5-15); BUN 13 mg/dL (4-19); BUN/Creat Ratio 13.3 RATIO (10-20); Calcium,Total 9.2 mg/dL (7.6-11.0); Carbon Dioxide 23.2 mmol/L (21.0-32.0); Chloride 103 mmol/L (98-108); Estimated Creatinine Clearance 119.34 ml/min (50-250); Glucose 131 mg/dL (70-99); Magnesium 2.3 mg/dL (1.5-2.2); Potassium 3.7 mmol/L (3.3-5.1); Troponin T High Sensitivity 23 ng/L (<=22)
--- NOTE | 2025-02-19 15:42 | PCM.CONS.C ---
Assessment & Plan Assessment/Plan (1) V tach: PLAN: Patient's pacer interrogation correlated with his heart rate of 170 on his iWatch Monday when he had his near syncopal spell. The patient interrogation shows that he was V sensed at 175 to 180 bpm consistent with ventricular tachycardia. This lasted approximately 30 minutes which correlates with the patient's symptoms and the timing that he expressed in the interview. The patient's LV function is known to be normal on echocardiogram and heart catheterization done January 31. He had mild coronary disease with a small diagonal branch was jailed with the previously widely patent stent in the proximal LAD. There was no other clinically significant atherosclerotic disease documented in the right coronary artery or circumflex. The patient's electrolytes are within normal ranges on his exam today. The patient has not been on any unusual supplements to his knowledge. He has noted that these symptoms started when he started Wegovy. However he had documented third-degree AV block with resting first-degree AV block and left anterior fascicular block which correlated with symptoms on a monitor. He subsequent underwent permanent pacemaker implantation January 31, 2025. I have reached out to electrophysiology for their opinion concerning most appropriate treatment options in this given situation. I did not see any reversible causes of his VT. He does have a history of obstructive sleep apnea but that is not new he is on no other new medical therapy. (2) Presence of cardiac pacemaker: PLAN: Patient is DDD pacemaker was placed January 31, 2025. He had normal pacer function on the check February 01, 2025. And his device detected the ventricular rate of 175 - 180 bpm at the time he was near syncopal February 15, 2025. (3) Essential hypertension: PLAN: Patient's blood pressure has been well-controlled on his current medical therapy. PLAN: Plan 1. Would recommend holding Wegovy he was due to have his shot today. 2. Recommend monitoring the patient for 48 to 72 hours on telemetry. 3. Will obtain input from the internet cafe manager to determine further treatment options. HPI Consult Data Date of Consult: 02/19/25 HPI Narrative Reason for Consultation: VT with near syncope. HPI Narrative: JERO GARZON, is a 69 M who presents to the emergency department after being sent in from the [facility] offices where device check revealed that with his near syncopal spell on February 15 at a football game he was in ventricular tachycardia which was sustained at 175 - 180 bpm. The patient reports that his iWatch captured his heart rate at 168. It lasted for 30 to 45 minutes. He was able to lay himself down on the ground he rested for a while and then got back to his truck. He and his then went home and by the time he got back home his heart rate was down in the 70 bpm range and his blood pressure was 130 systolic on his device. Patient had complete heart block documented on a event monitor with symptoms of near syncope and dizziness. He underwent permanent pacemaker implantation with a DDD device January 31, 2025. His echocardiogram showed moderate left atrial enlargement with normal LV systolic function EF of 60% and no significant valvular heart disease. The patient underwent diagnostic left heart catheterization January 31, 2025 as well. That cath revealed the previously stented LAD was widely patent there was a jailed diagonal vessel with an ostial 70 to 80% stenosis. The circumflex was nondominant with 50% moderate stenosis and mild diffuse distal disease the right coronary was dominant with a moderate 60% stenosis and mild diffuse distal disease. This was treated medically. The patient denies any anginal type symptoms. The patient does have a history of paroxysmal atrial fibrillation was cardioverted in 2022. Patient had the original atrial fibs/flutter identified by his iWatch. He has had no recurrence since that 1 episode in early 2022. His Eliquis was discontinued in December 2023 after 18 months of continuous sinus rhythm. Current pacer interrogation does not show any evidence of atrial fibrillation. Patient's pulmonary lab work shows normal renal function normal electrolytes and magnesium slightly elevated. Patient's troponin was in the 20s and it has been this way in the past when he has been in the emergency department. This does not represent a significant increase. ECG shows an AV paced rhythm primarily atrially sensed and ventricular paced. The patient temporally correlates his symptoms starting with when he started Wegovy about 2 months ago. I cannot find anything that suggested Wegovy would be causing ventricular tachycardia outside of electrolyte abnormalities which we are not measuring any significant electrolyte abnormalities. [facility] Medical History Presence of cardiac pacemaker AV block, 3rd degree Obesity (BMI 30-39.9) Syncope Chest pain Pre-syncope Prostate infection History of cardioversion First degree heart block Dyslipidemia Morbid obesity with BMI of 40.0-44.9, adult Paroxysmal atrial flutter Coronary artery disease Thrombocytopenia Failure of outpatient treatment Complicated urinary tract infection Dyspnea Atrial flutter History of shingles Fatigue History of pulmonary embolism Former tobacco use History of TIA (transient ischemic attack) Chest pain Rectal bleeding Pure hypercholesterolemia Acute pyelonephritis Prostate enlargement UTI (urinary tract infection) Dyspnea on exertion Claudication Fibromyalgia BPH (benign prostatic hyperplasia) GERD (gastroesophageal reflux disease) Essential hypertension Atherosclerotic heart disease of [place] coronary artery without angina pectoris Confusion Unstable angina HTN (hypertension) Abnormal myocardial perfusion study H/O percutaneous transluminal coronary angioplasty Abnormal stress test DEENA (obstructive sleep apnea) Pulmonary embolism Obesity Testosterone deficiency Home Medications ?Medication ?Instructions ?Recorded ?Last Taken ?Type albuterol sulfate 90 mcg/actuation 1 - 2 puff inhalation Q6H PRN 07/08/19 02/08/20 History aerosol inhaler Asthma testosterone 4 pump transdermal DAILY low 11/23/21 01/30/25 History testosterone tamsulosin 0.4 mg capsule 0.4 mg PO DAILY prostate 04/29/22 01/30/25 History amlodipine 5 mg tablet 10 mg (2 x 5 mg) PO DAILY htn #90 04/08/24 01/30/25 Rx tabs esomeprazole magnesium 40 mg 40 mg PO BID reflux 10/28/24 01/30/25 History capsule,delayed release finasteride 5 mg tablet 5 mg PO DAILY prostate 10/28/24 01/30/25 History losartan 100 mg tablet 100 mg PO DAILY blood pressure 10/28/24 01/30/25 History multivitamin (Daily Multi-Vitamin 1 tab PO DAILY vitamin 10/28/24 01/30/25 History tablet) oxycodone-acetaminophen 5 mg-325 1 tab PO DAILY PRN pain 10/28/24 Unknown History mg tablet potassium chloride 10 mEq 20 meq PO DAILY supplement 10/28/24 01/30/25 History tablet,extended release atomoxetine 40 mg capsule 100 mg PO DAILY ADD 11/28/24 01/30/25 History semaglutide (weight loss) 0.25 0.25 mg (0.5 mL) subcut QWEEK 12/02/24 01/26/25 Rx mg/0.5 mL subcutaneous pen weight loss #2 mL injector (Joel) ciprofloxacin HCl 500 mg tablet 500 mg PO BID infection 01/31/25 Unknown History Allergy/AdvReac Type Severity Reaction Status Date / Time Sulfa (Sulfonamide Allergy Unknown Verified 01/30/25 15:46 Antibiotics) Family History Mother CAD (coronary artery disease) Hypertension Hx of CABG Father Hypertension Myocardial infarction Grandfather Myocardial infarction paternal Grandmother Cancer pancreatic CA Grandfather CAD (coronary artery disease) Surgical History Spinal cord stimulator status (~05/2021) History of back surgery History of transurethral resection of prostate History of arthroscopy of right knee History of laparoscopic cholecystectomy Presence of coronary angioplasty implant and graft (~08/2012) Presence of stent in coronary artery (~08/2012) History of left heart catheterization (LHC) History of PTCA (~08/2012) History of tonsillectomy and adenoidectomy History of repair of rotator cuff Social History Smoking Status: Former smoker quit date: 06/19/94 pack-years: 42 how long ago did patient quit smokin second hand exposure: No alcohol intake: current alcohol intake frequency: holidays/special occasions only Alcohol type: beer substance use type: does not use caffeine: Yes Type: carbonated beverages, coffee and tea what type of physical activity do you participate in: none ROS Constitutional Constitutional: Reports as per HPI Eyes Eyes: Reports systems reviewed and no addt'l complaints, except as documented ENT HEENT: Reports systems reviewed and no addt'l complaints, except as documented Cardiovascular Cardiovascular: Reports as per HPI Respiratory/Chest Respiratory/Chest: Reports as per HPI Gastrointestinal Gastrointestinal: Reports systems reviewed and no addt'l complaints, except as documented Genitourinary Genitourinary: Reports as per HPI Musculoskeletal Musculoskeletal: Reports systems reviewed and no addt'l complaints, except as documented Integumentary Integumentary: Reports systems reviewed and no addt'l complaints, except as documented Neurologic Neurologic: Reports as per HPI Psychiatric Psychiatric: Reports systems reviewed and no addt'l complaints, except as documented Endocrine Endocrinology: Reports systems reviewed and no addt'l complaints, except as documented Hematologic/Lymphatic Hematologic/Lymphatic: Reports systems reviewed and no addt'l complaints, except as documented Allergic/Immunologic Allergic/Immunologic: Reports systems reviewed and no addt'l complaints, except as documented Physical Exam Const alert and oriented x3 HEENT normocephalic Eyes EOMs intact bilaterally Neck no JVD and no carotid bruits Chest inspection of chest normal Chest Narrative: Pacer pocket incision is well-healed. Chest: left pectoral incision Resp normal respiratory effort and clear to auscultation bilaterally Cardio Rate: regular rate Rhythm: regular rhythm Heart Sounds: S1 normal and S2 normal; Negative for click, gallop or murmur GI soft to palpation Extremity no pedal edema Neuro Neuro Narrative: Alert and oriented x 3 Psych mental status grossly normal Charges/Coding Visit Charges Inpatient E&M: 91319 Init Hosp L3 Objective Data Vital Signs: Vital Signs Temp Pulse Resp BP Pulse Ox O2 Del Method 97.9 F 67 13 138/73 H 97 Room Air 02/19/25 14:15 02/19/25 15:30 02/19/25 15:30 02/19/25 15:30 02/19/25 15:30 02/19/25 14:15 Oxygen Delivery Method Room Air Weight: 321 lb 10.471 oz Body Mass Index (BMI) 38.1 Lab / Micro Data Attestation: I reviewed the patient's lab results. 02/19/25 14:17 02/19/25 14:17 Labs: Laboratory Results - last 24 hr 02/19/25 14:17: WBC 6.1, RBC 5.25, Hgb 15.4, Hct 43.3, MCV 82.5, MCH 29.3, MCHC 35.6, RDW Std Deviation 38.6, RDW Coeff of Lito 12.8, Plt Count 168, MPV 11.1, Immature Gran % (Auto) 0.200, Neut % (Auto) 74.0 H, Lymph % (Auto) 14.8 L, [place] % (Auto) 9.6, Eos % (Auto) 1.2, Baso % (Auto) 0.2, Absolute Neuts (auto) 4.5, Absolute Lymphs (auto) 0.90, Nucleated RBC % 0, Sodium 138, Potassium 3.7, Chloride 103, Carbon Dioxide 23.2, Anion Gap 12, BUN 13, Creatinine 0.95, Estim Creat Clear Calc 119.34, Est GFR (MDRD) Non-Af 87, BUN/Creatinine Ratio 13.3, Glucose 131 H, Calcium 9.2, Magnesium 2.3 H, Troponin T High Sens 23 H D, TSH 1.110 Rhythm Strip Rhythm Strip: Pacer pacing V tracking sinus rate Rate: 66 Cardiology Labs/Tests 02/19/25 14:17: WBC 6.1, RBC 5.25, Hgb 15.4, Hct 43.3, MCV 82.5, MCH 29.3, MCHC 35.6, Plt Count 168, MPV 11.1, Immature Gran % (Auto) 0.200, Neut % (Auto) 74.0 H, Lymph % (Auto) 14.8 L, [place] % (Auto) 9.6, Eos % (Auto) 1.2, Baso % (Auto) 0.2, Absolute Neuts (auto) 4.5, Nucleated RBC % 0, Sodium 138, Potassium 3.7, Chloride 103, Carbon Dioxide 23.2, Anion Gap 12, BUN 13, Creatinine 0.95, Est GFR (MDRD) Non-Af 87, BUN/Creatinine Ratio 13.3, Glucose 131 H, Calcium 9.2, Magnesium 2.3 H Rhythm: EKG: ECHO: Stress Test: Cardiac Cath: PCI: CT Surgery: Holter monitor: EPS: PPM: CXR: Chest CT Scan: Radiography Diagnostic Testing: Radiology Impression Chest X-Ray 02/19/25 14:38 IMPRESSION: No acute abnormality Reading Location: [facility] MELISSA Risk Score for UA/STEMI Assesmment (YES = 1) Risk Stratification Applicable: Yes Age > or = 65: Yes > or = 3 CAD risk factors (HTN, Hypercholesterolemia, Diabetes, family hx, current smoker): No Known CAD (Stenosis > or = 50%): Yes ASA used in past 7 days: No Severe angina (> or = 2 episodes in 24 hrs): No EKG ST change > or = 0.5mm: No Positive cardiac markers: Yes Score MELISSA Risk Score of mortality/ recurrent ischemic event over the next 14 days: 3 = 13.2% Intermediate Risk
--- NOTE | 2025-02-19 16:14 | EDS_ITS ---
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 Patient has a past medical history of third-degree heart block with recent pacemaker placement on 01/31/25. States that since then he has continued to be fatigued. He intermittently has episodes of shoulder blade pain and a feeling of a bubble in his chest. Denies chest tightness or pain. Denies SOB. Denies abdominal pain, nausea, vomiting. His called the cardiologists office today who told him to come to the ED to be evaluated due to episodes of V tach on the review of his pacemaker. No chest pain, SOB or palpitations at time of my evaluation. [facility] Medical History Presence of cardiac pacemaker AV block, 3rd degree Obesity (BMI 30-39.9) Syncope Chest pain Pre-syncope Prostate infection History of cardioversion First degree heart block Dyslipidemia Morbid obesity with BMI of 40.0-44.9, adult Paroxysmal atrial flutter Coronary artery disease Thrombocytopenia Failure of outpatient treatment Complicated urinary tract infection Dyspnea Atrial flutter History of shingles Fatigue History of pulmonary embolism Former tobacco use History of TIA (transient ischemic attack) Chest pain Rectal bleeding Pure hypercholesterolemia Acute pyelonephritis Prostate enlargement UTI (urinary tract infection) Dyspnea on exertion Claudication Fibromyalgia BPH (benign prostatic hyperplasia) GERD (gastroesophageal reflux disease) Essential hypertension Atherosclerotic heart disease of [place] coronary artery without angina pectoris Confusion Unstable angina HTN (hypertension) Abnormal myocardial perfusion study H/O percutaneous transluminal coronary angioplasty Abnormal stress test DEENA (obstructive sleep apnea) Pulmonary embolism Obesity Testosterone deficiency Home Medications ?Medication ?Instructions ?Recorded ?Last Taken ?Type albuterol sulfate 90 mcg/actuation 1 - 2 puff inhalati on Q6H PRN 07/08/19 02/08/20 History aerosol inhaler Asthma testosterone 4 pump transdermal DAILY low 11/23/21 01/30/25 History testosterone tamsulosin 0.4 mg capsule 0.4 mg PO DAILY prostate 05/1001/30/25 History amlodipine 5 mg tablet 10 mg (2 x 5 mg) PO DAILY ht n #90 04/08/24 01/30/25 Rx tabs esomeprazole magnesium 40 mg 40 mg PO BID reflux 10/2801/30/25 History capsule,delayed release finasteride 5 mg tablet 5 mg PO DAILY prostate 10/2801/30/25 History losartan 100 mg tablet 100 mg PO DAILY blood pressu re 10/28/24 01/30/25 History multivitamin (Daily Multi-Vitamin 1 tab PO DAILY vitam in 10/28/24 01/30/25 History tablet) oxycodone-acetaminophen 5 mg-325 1 tab PO DAILY PRN pa in 10/28/24 Unknown History mg tablet potassium chloride 10 mEq 20 meq PO DAILY supplement 0 10/28/24 01/30/25 History tablet,extended release atomoxetine 40 mg capsule 100 mg PO DAILY ADD 11/28/24 01/30/25 History semaglutide (weight loss) 0.25 0.25 mg (0.5 mL) subcut QWEEK 12/02/24 01/26/25 Rx mg/0.5 mL subcutaneous pen weight loss #2 mL injector ([employer]) ciprofloxacin HCl 500 mg tablet 500 mg PO BID infectio n 01/31/25 Unknown History Allergy/AdvReac Type Severity Reaction Status Date / Time Sulfa (Sulfonamide Allergy Unknown Verified 01/30/25 15:46 Antibiotics) Family History Mother CAD (coronary artery disease) Hypertension Hx of CABG Father Hypertension Myocardial infarction Grandfather Myocardial infarction paternal Grandmother Cancer pancreatic CA Grandfather CAD (coronary artery disease) Surgical History Spinal cord stimulator status (~05/2021) History of back surgery History of transurethral resection of prostate History of arthroscopy of right knee History of laparoscopic cholecystectomy Presence of coronary angioplasty implant and graft (~08/2012) Presence of stent in coronary artery (~08/2012) History of left heart catheterization (LHC) History of PTCA (~08/2012) History of tonsillectomy and adenoidectomy History of repair of rotator cuff Social History Smoking Status: Former smoker quit date: 06/19/94 pack-years: 42 how long ago did patient quit smokin second hand exposure: No alcohol intake: current alcohol intake frequency: holidays/special occasions only Alcohol type: beer substance use type: does not use caffeine: Yes Type: carbonated beverages, coffee and tea what type of physical activity do you participate in: none ROS ROS ED ROS Narrative See HPI EXAM Physical Exam Narrative Exam Narrative: Vital signs: Reviewed General: Alert and oriented. No acute distress HEENT: Head is normocephalic and atraumatic, sinuses nontender, pupils equal round and reactive. Nares are patent. Oropharynx and throat exams normal. Neck: Supple without lymphadenopathy nontender Cardiovascular: Regular rate and rhythm, no murmurs. No rubs or gallops. Normal S1 and S2. Pacemaker in the left upper chest wall. No erythema, warmth or fluctuance around the site. Respiratory: Clear to auscultation bilaterally. No wheezes, rales, rhonchi Abdominal: Soft and nontender. Normal bowel sounds. No guarding or rebound. Nonsurgical abdomen Extremities: No tenderness. No bruising. Normal range of motion. Normal sensation. Skin: No rash or redness. Neurological: Cranial nerves II through XII are grossly intact. Normal strength and sensation. Normal cerebellar function The rest of the physical exam is unremarkable Const Vital Signs: 02/19/25 14:15 02/19/25 14:15 02/19/25 14:24 Temperature 97.9 F 97.9 F Temperature Source Oral Oral Pulse Rate 75 76 Respiratory Rate 13 17 Respiratory Effort Normal Non-Labored Respiratory Pattern Normal Blood Pressure 148/76 H 148/76 H Blood Pressure Mean 100 100 Pulse Ox 100 100 Oxygen Delivery Method Room Air Room Air 02/19/25 15:00 02/19/25 15:00 02/19/25 15:01 Temperature Temperature Source Pulse Rate 66 Respiratory Rate 14 Respiratory Effort Respiratory Pattern Blood Pressure 130/72 H 130/72 H Blood Pressure Mean 89 89 Pulse Ox 99 Oxygen Delivery Method 02/19/25 15:15 02/19/25 15:30 02/19/25 16:00 Temperature Temperature Source Pulse Rate 66 67 64 Respiratory Rate 13 13 17 Respiratory Effort Respiratory Pattern Blood Pressure 125/76 H 138/73 H 133/72 H Blood Pressure Mean 91 92 92 Pulse Ox 94 97 97 Oxygen Delivery Method Room Air 02/19/25 16:04 Temperature 98.0 F Temperature Source Pulse Rate 65 Respiratory Rate 15 Respiratory Effort Respiratory Pattern Blood Pressure 132/72 H Blood Pressure Mean 92 Pulse Ox 98 Oxygen Delivery Method MDM MDM MDM Narrative Medical decision making narrative: Patient is a 69-year-old male presenting to the emergency department due to abnormal findings on his pacemaker on cardiology review. Patient was seen and examined. Vitals are stable. Patient resting in bed comfortably in no acute distress. EKG here shows atrial sensed ventricular paced rhythm. Negative Sgarbossa criteria. CBC with no leukocytosis and a normal hemoglobin. BMP with mild hyponatremia of 131 otherwise no significant abnormalities. TSH and magnesium are within normal limits. Initial troponin of 23. On chart review, troponins on recent visit 01/30 around 29-31. Will continue to trend. Expect the small increase in troponin from normal to be from his v tach episodes. Chest x-ray reviewed by myself. No opacities, pneumothorax, widened mediastinum. Radiology read with no acute abnormalities. No episodes while here. Pacemaker interrogated here. Melter Clerk, Dr. Vo consulted for recommendations. He evaluated the patient. Recommended admission for telemetry and he will speak with EP about recommendations for medications amio vs solatol. Discussed workup here with patient and . Discussed recommendation for admission. He is agreeable. Patient admitted to Dr. Treviño for further management. Clinical impression V. tach Fatigue History & Record Review Discussion w/independent historian: Patient and Significant other Lab Data Attestation: I reviewed the patient's lab results. Labs: Laboratory Results - last 24 hr 02/19/25 14:17 WBC 6.1 RBC 5.25 Hgb 15.4 Hct 43.3 MCV 82.5 MCH 29.3 MCHC 35.6 RDW Std Deviation 38.6 RDW Coeff of Lito 12.8 Plt Count 168 MPV 11.1 Immature Gran % (Auto) 0.200 Neut % (Auto) 74.0 H Lymph % (Auto) 14.8 L [place] % (Auto) 9.6 Eos % (Auto) 1.2 Baso % (Auto) 0.2 Absolute Neuts (auto) 4.5 Absolute Lymphs (auto) 0.90 Nucleated RBC % 0 Sodium 138 Potassium 3.7 Chloride 103 Carbon Dioxide 23.2 Anion Gap 12 BUN 13 Creatinine 0.95 Estim Creat Clear Calc 119.34 Est GFR (MDRD) Non-Af 87 BUN/Creatinine Ratio 13.3 Glucose 131 H Calcium 9.2 Magnesium 2.3 H Troponin T High Sens 23 H D TSH 1.110 Radiography Chest X-Ray - ED: 2 View, Read by ED Physician, Normal, No Acute Disease and No Infiltrates Diagnostic Testing: Clinical Impression(s) from Imaging Studies Chest X-Ray 02/19/25 14:38 IMPRESSION: No acute abnormality Reading Location: [facility] Discharge Plan Triage Chief Complaint: Chest Pain ED Provider: Chapis Polo Dx/Rx/DC Orders Clinical Impression: V tach, Fatigue Prescriptions: No Action tamsulosin 0.4 mg capsule 0.4 mg PO DAILY testosterone 20.25 mg/1.25 gram (1.62 %) gel in metered-dose pump 4 pump transdermal DAILY Patient Comments: APPLY 4 PUMPS DAILY albuterol sulfate 1 INHALER inhaler 1 - 2 puff INHALATION Q6H PRN (Reason: Asthma) esomeprazole magnesium 40 mg capsule,delayed release(DR/EC) 40 mg PO BID Patient Comments: PT ONLY TAKES ONCE A DAY losartan 100 mg tablet 100 mg PO DAILY potassium chloride 10 mEq tablet extended release 20 meq PO DAILY finasteride 5 mg tablet 5 mg PO DAILY multivitamin [Daily Multi-Vitamin] Tablet 1 tab PO DAILY oxycodone-acetaminophen 5-325 mg tablet 1 tab PO DAILY PRN (Reason: pain) atomoxetine 40 mg capsule 100 mg PO DAILY ciprofloxacin HCl 500 mg tablet 500 mg PO BID amlodipine 5 mg tablet 10 mg PO DAILY Qty: 90 3RF Wegovy 0.25 mg/0.5 mL pen injector 0.25 mg subcut QWEEK Qty: 2 0RF Rx Instructions: administer weeks 1 through 4 of therapy Primary Care Provider: Jagjit Myers Referrals: Jagjit Myers MD [Primary Care Provider] - Print Language: Swedish
--- NOTE | 2025-02-19 16:18 | PCM.HP.STD ---
HPI - General General Date of Admission: 02/19/25 Date of Service: 02/19/25 Chief Complaint: Episodes of racing heart and shortness of breath HPI Narrative JERO GARZON, is a 69-year-old male with history of coronary artery disease with stenting, , DEENA, ADHD, hypertension, GERD, BPH, low testosterone, complete heart block 2 weeks ago status post permanent pacemaker who presented to [facility] ED 02/19/2025 at the urging of the cardiology office due to runs of V. tach. In the ED temp 97.9, heart rate 75 and blood pressure 148/76, respiratory rate 17 and patient saturating 100% on room air. CBC with normal white count and hemoglobin, BMP only notable for glucose of 131, chest x-ray no acute process, mag 2.3, normal TSH and troponin of 23. Cardiology evaluated patient in the ED. Reportedly patient had a syncopal spell Monday, February 15 at a football game and was in V. tach that was sustained at 175 to 180 bpm which lasted for 30 to 40 minutes. Was able to rest on the ground and after a while he is able to get back up and go to his truck. He was advised yesterday that patient come to the ED but he did not want to, he was called again today and ultimately presented to the ED. Cardiology recommended admission. Hospitalist contacted for admission. Patient evaluated with family member at bedside, he reports history as above, initially did endorse a blackout episode but later said he does not think he completely lost consciousness, does get episodes like this intermittently and would get these even before he had a pacemaker, notes he can tell when it is coming on and will be able to sit down and lay down until resolution, sometimes this lasts for minutes sometimes last for a long time like a 30 to 40 minutes on Monday. Often the episodes are brought on by exertion or stress. Notes in the past couple days he did have some pain between his shoulder blades but is not having any at present, notes that during these episodes as above he will also get short of breath and have a dry cough and nausea. Also feels very fatigued just in general. He will feel like he has a bubble in his chest and tingling in his hands. Presently having none of the symptoms. Does report he gets some constipation now that he is on Wegovy but denies any other new or acute complaints. [facility] Medical History Presence of cardiac pacemaker AV block, 3rd degree Obesity (BMI 30-39.9) Syncope Chest pain Pre-syncope Prostate infection History of cardioversion First degree heart block Dyslipidemia Morbid obesity with BMI of 40.0-44.9, adult Paroxysmal atrial flutter Coronary artery disease Thrombocytopenia Failure of outpatient treatment Complicated urinary tract infection Dyspnea Atrial flutter History of shingles Fatigue History of pulmonary embolism Former tobacco use History of TIA (transient ischemic attack) Chest pain Rectal bleeding Pure hypercholesterolemia Acute pyelonephritis Prostate enlargement UTI (urinary tract infection) Dyspnea on exertion Claudication Fibromyalgia BPH (benign prostatic hyperplasia) GERD (gastroesophageal reflux disease) Essential hypertension Atherosclerotic heart disease of [place] coronary artery without angina pectoris Confusion Unstable angina HTN (hypertension) Abnormal myocardial perfusion study H/O percutaneous transluminal coronary angioplasty Abnormal stress test DEENA (obstructive sleep apnea) Pulmonary embolism Obesity Testosterone deficiency Home Medications ?Medication ?Instructions ?Recorded ?Last Taken ?Type albuterol sulfate 90 mcg/actuation 1 - 2 puff inhalation Q6H PRN 07/08/19 02/08/20 History aerosol inhaler Asthma testosterone 4 pump transdermal DAILY low 11/23/21 01/30/25 History testosterone tamsulosin 0.4 mg capsule 0.4 mg PO DAILY prostate 04/29/22 01/30/25 History amlodipine 5 mg tablet 10 mg (2 x 5 mg) PO DAILY htn #90 04/08/24 01/30/25 Rx tabs esomeprazole magnesium 40 mg 40 mg PO BID reflux 10/28/24 01/30/25 History capsule,delayed release finasteride 5 mg tablet 5 mg PO DAILY prostate 10/28/24 01/30/25 History losartan 100 mg tablet 100 mg PO DAILY blood pressure 10/28/24 01/30/25 History multivitamin (Daily Multi-Vitamin 1 tab PO DAILY vitamin 10/28/24 01/30/25 History tablet) oxycodone-acetaminophen 5 mg-325 1 tab PO DAILY PRN pain 10/28/24 Unknown History mg tablet potassium chloride 10 mEq 20 meq PO DAILY supplement 10/28/24 01/30/25 History tablet,extended release atomoxetine 40 mg capsule 100 mg PO DAILY ADD 11/28/24 01/30/25 History semaglutide (weight loss) 0.25 0.25 mg (0.5 mL) subcut QWEEK 12/02/24 01/26/25 Rx mg/0.5 mL subcutaneous pen weight loss #2 mL injector (Joel) ciprofloxacin HCl 500 mg tablet 500 mg PO BID infection 01/31/25 Unknown History Allergy/AdvReac Type Severity Reaction Status Date / Time Sulfa (Sulfonamide Allergy Unknown Verified 01/30/25 15:46 Antibiotics) Family History Mother CAD (coronary artery disease) Hypertension Hx of CABG Father Hypertension Myocardial infarction Grandfather Myocardial infarction paternal Grandmother Cancer pancreatic CA Grandfather CAD (coronary artery disease) Surgical History Spinal cord stimulator status (~05/2021) History of back surgery History of transurethral resection of prostate History of arthroscopy of right knee History of laparoscopic cholecystectomy Presence of coronary angioplasty implant and graft (~08/2012) Presence of stent in coronary artery (~08/2012) History of left heart catheterization (LHC) History of PTCA (~08/2012) History of tonsillectomy and adenoidectomy History of repair of rotator cuff Social History Smoking Status: Former smoker quit date: 06/19/94 pack-years: 42 how long ago did patient quit smokin second hand exposure: No alcohol intake: current alcohol intake frequency: holidays/special occasions only Alcohol type: beer substance use type: does not use caffeine: Yes Type: carbonated beverages, coffee and tea what type of physical activity do you participate in: none ROS ROS Narrative General: Denies fever/chills HENT: Does get a headache during the episodes, denies stuffy nose, denies sore throat EYES: Denies changes in vision Resp: Short of breath and cough during the episodes, nonproductive cough Cardiac: Denies any chest pain but sometimes will get pain between his shoulder blades GI: Denies abdominal pain, struggled with some constipation, nausea during the episodes : Denies changes in urination Extremity: Denies swelling MSK: Feels somewhat generally weak and fatigued Neuro: Denies any numbness/tingling at present but during the episodes will get some tingling in his hands Heme: Denies any bleeding or bruising Skin: Denies rashes Psychiatric: No complaints voiced Vital Signs Vital Signs Vital Signs: 02/19/25 14:15 02/19/25 14:15 02/19/25 14:24 Temperature 97.9 F 97.9 F Temperature Source Oral Oral Pulse Rate 75 76 Respiratory Rate 13 17 Respiratory Effort Normal Non-Labored Respiratory Pattern Normal Blood Pressure 148/76 H 148/76 H Blood Pressure Mean 100 100 Pulse Ox 100 100 Oxygen Delivery Method Room Air Room Air 02/19/25 15:00 02/19/25 15:00 02/19/25 15:01 Temperature Temperature Source Pulse Rate 66 Respiratory Rate 14 Respiratory Effort Respiratory Pattern Blood Pressure 130/72 H 130/72 H Blood Pressure Mean 89 89 Pulse Ox 99 Oxygen Delivery Method 02/19/25 15:15 02/19/25 15:30 02/19/25 16:00 Temperature Temperature Source Pulse Rate 66 67 64 Respiratory Rate 13 13 17 Respiratory Effort Respiratory Pattern Blood Pressure 125/76 H 138/73 H 133/72 H Blood Pressure Mean 91 92 92 Pulse Ox 94 97 97 Oxygen Delivery Method Room Air 02/19/25 16:04 Temperature 98.0 F Temperature Source Pulse Rate 65 Respiratory Rate 15 Respiratory Effort Respiratory Pattern Blood Pressure 132/72 H Blood Pressure Mean 92 Pulse Ox 98 Oxygen Delivery Method Weight Weight: 145.9 kg Body Mass Index (BMI) 38.1 Physical Exam Narrative General: Alert, oriented, no apparent distress HEENT: Atraumatic, normocephalic Eyes: Anicteric, normal conjunctiva, extraocular movements grossly intact Neck: Supple Respiratory: Clear to auscultation bilaterally, normal respiratory effort Cardiovascular: Regular rate and rhythm GI: Soft, nontender, nondistended Extremities: No significant pitting edema Musculoskeletal: Moving all extremities Neuro: No overt focal neurological deficits Skin: No rashes appreciated Psych: Cooperative Results Lab / Micro Data 02/19/25 14:17 02/19/25 14:17 Labs: Laboratory Results - last 24 hr 02/19/25 14:17: WBC 6.1, RBC 5.25, Hgb 15.4, Hct 43.3, MCV 82.5, MCH 29.3, MCHC 35.6, RDW Std Deviation 38.6, RDW Coeff of Lito 12.8, Plt Count 168, MPV 11.1, Immature Gran % (Auto) 0.200, Neut % (Auto) 74.0 H, Lymph % (Auto) 14.8 L, [place] % (Auto) 9.6, Eos % (Auto) 1.2, Baso % (Auto) 0.2, Absolute Neuts (auto) 4.5, Absolute Lymphs (auto) 0.90, Nucleated RBC % 0, Sodium 138, Potassium 3.7, Chloride 103, Carbon Dioxide 23.2, Anion Gap 12, BUN 13, Creatinine 0.95, Estim Creat Clear Calc 119.34, Est GFR (MDRD) Non-Af 87, BUN/Creatinine Ratio 13.3, Glucose 131 H, Calcium 9.2, Magnesium 2.3 H, Troponin T High Sens 23 H D, TSH 1.110 Rhythm Strip Rhythm Strip: Pacer pacing V tracking sinus rate Rate: 66 Imaging Radiology Impression Chest X-Ray 02/19/25 14:38 IMPRESSION: No acute abnormality Reading Location: [id number] Assessment & Plan Assessment/Plan (1) V tach: PLAN: Plan # Episodes of ventricular tachycardia -With rates 170s to 180s with ?syncopal episode (initially sounded as though he passed out but later said he did not, was symptomatic though) -Cardiology evaluated in the ED and recommended admission on telemetry and that they will reach out to EP for further treatment recommendations -Magnesium not low, potassium 3.7, TSH within normal limits -Patient to be monitored on telemetry -Cardioogy c/s -Recent echo showed mildly dilated aortic root, EF of 60% with moderate concentric LVH and no significant valvular abnormalities - Heart cath 01/31/2025 revealed the previously stented LAD was widely patent there was a jailed diagonal vessel with an ostial 70 to 80% stenosis. The circumflex was nondominant with 50% moderate stenosis and mild diffuse distal disease the right coronary was dominant with a moderate 60% stenosis and mild diffuse distal disease which was treated medically - Hold Wegovy as recommended by cardiology #Hx of CAD -w/ previous stenting -Continue home medications -Recent heart cath as above #DEENA -Continue home NIPPV - Patient reports compliance #Hypertension - Continue home medications #GERD -Continue PPI #Chronic BPH with obstruction -Continue home medications # History of ADHD -Will temporarily hold home atomoxetine given concerns for arrhythmia, may need to consider alternate agents on an outpatient basis given the presenting complaint #DVT ppx: SCDs Kathleen Treviño MD Charges/Coding Visit Charges Inpatient E&M: 74867 Init Hosp L2
[2025-02-19 16:39] LABS: Troponin T High Sens 2 HR 22 ng/L (<=22)
--- NOTE | 2025-02-19 16:50 | CASEMGMT ---
Social Work Patients last face to face assessment was completed less than 30 days ago. Patient verified there has been no changes. Patient plans to DC home when medically ready. Ginger Villalta MSW, MECHANICAL ARTIST
--- NOTE | 2025-02-19 17:52 | ECHOL_ITS ---
Reason For Study Reason For Study: ARRHYTHMIA Procedure This was a 2D Doppler, Color Flow transthoracic echocardiogram. Exam performed portable in patient room. Left Ventricle Normal LV size. The estimated ejection fraction is 60 %. Unable to assess diastolic dysfunction. No regional wall motion abnormalities noted. Right Ventricle Normal RV size. There is a pacemaker lead in the right ventricle. Normal systolic function. Atria The left atrium is mildly enlarged. Normal right atrium. ICD or pacer leads identified within the right atrium. No doppler evidence for ASD. Mitral Valve There is no mitral valve stenosis. No mitral valve insufficiency. Tricuspid Valve There is no tricuspid stenosis. Trivial tricuspid valve insufficiency. Unable to estimate RV systolic pressure due to insufficient tricuspid regurgitant envelope. Aortic Valve Trisinus/trileaflet aortic valve. There is no aortic stenosis. No aortic valve insufficiency. Pulmonic Valve There is no pulmonic valvular stenosis. No pulmonic valve insufficiency. Great Vessels Normal sized aortic root. Pericardium/Pleural No pericardial effusion. MMode/2D Measurements & Calculations LVIDd: 5.5 cm IVSd: 1.5 cm Ao root diam: 3.7 cm LVIDs: 3.9 cm LVPWd: 1.3 cm RVDd: 3.2 cm FS: 29.2 % asc Aorta Diam: 4.1 cm LAV(MOD-bp): 94.8 ml LVAd ap4: 33.0 cm2 LAV(MOD-bp) Indexed: 34.9 ml/m2 LVLd ap4: 8.5 cm LAV(MOD-sp2): 97.0 ml EDV(MOD-sp4): 108.1 ml LAV(MOD-sp4): 88.8 ml EDV(sp4-el): 109.1 ml LVAs ap4: 18.2 cm2 LVLs ap4: 8.1 cm ESV(MOD-sp4): 35.7 ml ESV(sp4-el): 34.7 ml EF(MOD-sp4): 67.0 % EF(sp4-el): 68.2 % LVAd ap2: 33.2 cm2 SV(MOD-sp4): 72.4 ml SV(MOD-sp2): 69.3 ml LVLd ap2: 8.8 cm SI(MOD-sp4): 26.7 ml/m2 SI(MOD-sp2): 25.6 ml/m2 EDV(MOD-sp2): 109.4 ml EDV(sp2-el): 106.4 ml LVAs ap2: 18.6 cm2 LVLs ap2: 7.7 cm ESV(MOD-sp2): 40.1 ml ESV(sp2-el): 38.3 ml EF(MOD-sp2): 63.4 % SV(sp4-el): 74.3 ml LA dimension(2D): 5.2 cm LA A4 area: 26.3 cm2 RA A4 area: 19.7 cm2 ECHO/Echo, Limited Study Interpretation Summary The estimated ejection fraction is 60 %. The left atrium is mildly enlarged. Ordering Physician: Kathleen Treviño Referring Physician: Jagjit Myers Performed By: Imelda Lopez, LESLYE, RVT
[2025-02-19 19:45] LABS: Troponin T High Sens 4 HR 27 ng/L (<=22)
[2025-02-19] MEDS: Metoprolol(XL)Succ 50 MG Tablet PO (20:13)
[2025-02-19] MEDS: Senna/Docusate Sodium 1 Tablet 2 TABLET PO (20:13)
--- NOTE | 2025-02-19 21:50 | SLEEP ---
Patient set up with PAP machine for the night per home settings. CPAP of 10 with size large nasal pillows no O2 bleed.
--- OUTSIDE RECORDS SUMMARY | 2025-02-20 00:17 | XMS RPT_ITS | CCD ---
Author Organization [facility] Care Team Providers Care Last Waxer Name Role Phone Aurora ZIMMERMAN, Sara Carter Unavailable Unavailable ALYSACHLOE GUY Unavailable Unavailable ALYSACHLOE MCFARLANE Unavailable Unavailable ALYSACHLOE MCFARLANE Unavailable Unavailable Erlin Mohr Unavailable Unavailable Hernán RN, Dyana Nelson Unavailable Chloe Cheema MD Primary Care Provider Dr. Chloe Cheema Primary Care Provider Dr. Sergo Perez Attending Provider [phone] Prebish EPITAXIAL REACTOR OPERATOR, EPITAXIAL REACTOR OPERATOR-C Isabel Referring Provider Dr. Chloe Cheema Referring Provider Avila FISHER, EPITAXIAL REACTOR OPERATOR-Harper Galvin Attending Provider Chloe Cheeam MD Primary Care Provider Dr. Chloe Cheema Primary Care Provider Chloe Cheema MD Primary Care Provider Dr. Chloe Cheema Primary Care Provider Dr. Chloe Cheema Referring Provider Dr. Willis Alfred Attending Provider Chloe Cheema MD Primary Care Provider Avila EPITAXIAL REACTOR OPERATOR, EPITAXIAL REACTOR OPERATORShukri Galvin Attending Provider SARA Gooden NP Attending Provider Dr. Willis Alfred Referring Provider Dr. Willis Alfred Other Provider Dr. Shaji Wyatt Attending Provider Dr. Chloe Cheema Primary Care Provider Deni, Dr. Danielson Referring Provider Giacomo EPITAXIAL REACTOR OPERATOR, EPITAXIAL REACTOR OPERATORShukri Braun Attending Provider Dr. Nahum Dias Emergency Provider Dr. Lucy Partida Admit Provider Dr. Lucy Partida Attending Provider Dr. Lucy Partida Other Provider Deni, Dr. Danielson Primary Care Provider Deni, Dr. Danielson Referring Provider Adalberto, Dr. Tanner Attending Provider CHLOE CHEEMA Primary Care Unavailable WENDY BALES Attending Unavailable WENDY BALES Admitting Unavailable Deni, Dr. Danielson Primary Care Provider Deni, Dr. Danielson Referring Provider Adalberto, Dr. Tanner Attending Provider Dr. Sergo Perez Attending Provider Chloe Cheema MD Primary Care Provider CHLOE CHEEMA Referring Unavailable DEIN, CHLOE Sanders Primary Care Unavailable CHLOE CHEEMA Referring Unavailable DENI, CHLOE Sanders Primary Care Unavailable Bjagen AIRPLANE FLIGHT ATTENDANT.CENTER MEDICAL DIRECTOR, Susan Unavailable Suppan AIRPLANE FLIGHT ATTENDANT.CENTER MEDICAL DIRECTOR, Beverley A Unavailable Suppan AIRPLANE FLIGHT ATTENDANT.CENTER MEDICAL DIRECTOR, Beverley A Unavailable Suppan AIRPLANE FLIGHT ATTENDANT.CENTER MEDICAL DIRECTOR, Beverley A Unavailable [phone] Dr. Chloe Cheema MD Primary Care Provider Dr. Chloe Cheema MD Referring Provider Hussein Christina Attending Provider Dr. Wendy Mclaughlin DO Emergency Provider [phone] Wendy Mclaughlin DO Attending Provider Dr. Jose Alberto Contreras MD Emergency Provider Dr. Jose Alberto Contreras MD Attending Provider Gilda CONTI, Dr. Barajas Attending Provider Gilda CONTI, Dr. Barajas Referring Provider Gilda CONTI, Dr. Barajas Other Provider [phone] Yobany CONTI, Dr. Walker Attending Provider Deni CONTI, Dr. Danielson Primary Care Provider Deni CONTI, Dr. Danielson Referring Provider Avila EPITAXIAL REACTOR OPERATOR-C, Hussein Galvin Attending Provider Melani CONTI, Dr. Nation Emergency Provider Unavailab le de Harlan DO, Dr. May Admit Provider Unavail able de Harlan DO, Dr. May Attending Provider Unav ailable Melani CONTI, Dr. Nation Emergency Provider Unavailab le de Harlan DO, Dr. May Admit Provider Unavail able de Harlan DO, Dr. May Other Provider Unavail able Chandana CONTI, Dr. Pineda Other Provider Unavailable Jaleesa CONTI, Dr. Almeida Other Provider Unavailable Jessica CONTI, Dr. Glynn Other Provider Unavailable Jina CONTI, Dr. Mejia Other Provider Adalberto CONTI, Dr. Tanner Other Provider Ashok CONTI, Dr. Christopher Other Provider Mckenzie CONTI, Dr. Godwin Other Provider Unavailable Chris CONTI, Dr. Trotter Attending Provider [phone] Chris CONTI, Dr. Trotter Other Provider Wisam OAKES, Dr. Ashley Sanders Other Provider Lillian CONTI, Dr. Chu Other Provider Yobany CONTI, Dr. Walker Other Provider Tristin CONTI, Dr. Medina Other Provider Unavailable Makeda CONTI, Dr. Car Other Provider Katharine CONTI, Dr. Mahmood Other Provider [phone] Avila EPITAXIAL REACTOR OPERATOR-C, Hussein Galvin Other Provider Dyana Triplett Other Provider Willem Randall Other Provider Dr. Davy Lanier DO Other Provider Olvin OAKES, Dr. Pavon Attending Provider Kayce ZIMMERMAN, Ratna Unavailable Dr. Librado Bah DO Other Provider Jodi Soto Attending Provider Unavailable Denise Haywood Attending UnavailKarl Smith Consulting Unavailable [facility] Primary Care Unavailable Karl Vo Referring Unavailable TrinidadMayelin Referring Unavailable [facility] Primary Care Unavailable Mayelin Rodriguez Attending Unavailable Karl Vo Referring Unavailable Karl Vo Attending Unavailable [facility] Primary Care Unavailable [facility] Unavailable Wendy Mclaughlin Attending Unavailable [facility] Unavailable Jose Alberto Contreras Attending Unavailable Ashley Jacobs Admitting Unavailable Teagano, Ahmed Consulting Unavailable Librado Bah Attending Unavailable [facility] Unavailable Jabri, Ahmad Consulting Unavailable Karim, Adham Consulting Unavailable Mostafa, Roberto Consulting Unavailable Adalberto, Flores Consulting Unavailable Ashok, Ashwin Consulting Unavailable Mckenzie, Tato Consulting Unavailable Chris, Sergo Consulting Unavailable Ashley Joel Consulting Unavailable Adelinaal, Gonzalezouk Consulting Unavailable Karl Vo Consulting Unavailable Alphonso Haywoodapradee Consulting Unavailcuba swanson Azouz, Samer Consulting Unavailable Satti, Josep Consulting Unavailable Bath, Timoteo Consulting Unavailable Avila EPITAXIAL REACTOR OPERATOR, Hussein Galvin Consulting Unavailable Dyana Triplett Consulting Unavail able Willem Dsouza Consulting Unavailable Ashley Jacobs Consulting Unavailable Davy Lanier Consulting Unavailable Davy Lanier Attending Unavailable Ashley Jacobs Admitting Unavailable Amro, Ahmed Consulting Unavailable [facility] Primary Care Unavailable Jabri, Ahmad Consulting Unavailable Karim, Adham Consulting Unavailable Mostafa, Roberto Consulting Unavailable Adalberto, Flores Consulting Unavailable Pulido, Ashwin Consulting Unavailable Mckenzie, Tato Consulting Unavailable Chris, Sergo Consulting Unavailable Ashley Joel Consulting Unavailable Belal, Farouk Consulting Unavailable Karl Vo Consulting Unavailable Nagajothi, Nagapradee Consulting Unavailabl e Azouz, Samer Consulting Unavailable Sathumberto, Josep Consulting Unavailable Jennifer Alcantaratore Consulting Unavailable Avila EPITAXIAL REACTOR OPERATOR, Hussein Galvin Consulting Unavailable Antonio GASCA, Dyana Post Consulting Unavail able Willem Dsouza Consulting Unavailable Ashley Jacobs Consulting Unavailable Davy Lanier Consulting Unavailable Ashley Jacobs Attending Unavailable Olvin, Librado Attending Unavailable Librado Bah Consulting Unavailable Ashley Jacobs Admitting Unavailable Edwin Ellnigton Consulting Unavailable Sergo Perez Attending Unavailable Deni, Chloe Primary Care Unavailable Elle Lazcano Consulting Unavailable Renard Lopez Consulting Unavailable Roberto Muro Consulting Unavailable Flores Glover Consulting Unavailable Ashwin Pulido Consulting Unavailable Tato Rincon Consulting Unavailable Sergo Perez Consulting Unavailable Ashley Joel Consulting Unavailable Kimberley Snyder Consulting Unavailable Karl Vo Consulting Unavailable Alphonsoashawanda, Alphonsoapradee Consulting Unavailabl e Jazmineuz, Butchr Consulting Unavailable Makeda, Josep Consulting Unavailable Jennifer Alcantaratore Consulting Unavailable Roof EPITAXIAL REACTOR OPERATOR, Hussein Galvin Consulting Unavailable Antonio GASCA, Dyana Post Consulting Unavail able Willem Dsouza Consulting Unavailable Ashley Jacobs Consulting Unavailable Davy Lanier Consulting Unavailable Avila EPITAXIAL REACTOR OPERATOR, Hussein Galvin Attending Unavailable Deni, Chloe Primary Care Unavailable [facility], Chloe Referring Unavailable Jodi Soto Attending Unavailable [facility], Chloe Primary Care Unavailable [facility], Chloe Referring Unavailable Roof EPITAXIAL REACTOR OPERATOR, Hussein Galvin Attending Unavailable Deni, Chloe Primary Care Unavailable Deni, Chloe Referring Unavailable DENI, CHLOE Sanders Primary Care Unavailable DENI, CHLOE Sanders Referring Unavailable DENI, CHLOE Sanders Attending Unavailable DENI, CHLOE Sanders Primary Care Unavailable DENI, CHLOE Sanders Primary Care Unavailable DENI, CHLOE Sanders Attending Unavailable DENI, CHLOE Sanders Primary Care Unavailable DENI, CHLOE Sanders Attending Unavailable DENI, CHLOE Sanders Referring Unavailable DENI, CHLOE Sanders Primary Care Unavailable DENI, CHLOE Sanders Attending Unavailable DENI, CHLOE Sanders Primary Care Unavailable DENI, CHLOE Sanders Primary Care Unavailable DENI, CHLOE Sanders Referring Unavailable DENI, CHLOE Sanders Referring Unavailable DENI, CHLOE Sanders Primary Care Unavailable DENI, CHLOE Sanders Attending Unavailable DENI, CHLOE Sanders Primary Care Unavailable DENI, CHLOE Sanders Referring Unavailable DENI, CHLOE Sanders Primary Care Unavailable DENI, CHLOE Sanders Attending Unavailable DENI, CHLOE Sanders Primary Care Unavailable SUSAN KERR Referring Unavailable DENI, CHLOE Sanders Primary Care Unavailable YESICA BACON Attending Unavailable DENI, CHLOE Sanders Referring Unavailable DENI, CHLOE Sanders Primary Care Unavailable DENI, CHLOE Sanders Referring Unavailable DENI, CHLOE Sanders Primary Care Unavailable PODLOGAR, LISA Referring Unavailable DENI, CHLOE Sanders Primary Care Unavailable PODLOGAR, LISA Referring Unavailable DENI, CHLOE Sanders Primary Care Unavailable PODLOGAR, LISA Attending Unavailable DENI, CHLOE Sanders Primary Care Unavailable DENI, CHLOE Sanders Referring Unavailable DENI, CHLOE Sanders Primary Care Unavailable HAAGEN, SUSAN Referring Unavailable DENI, CHLOE Sanders Primary Care Unavailable HADELORIS, SUSAN Attending Unavailable DENI, CHLOE Sanders Primary Care Unavailable SELF Referring Unavailable DENI, CHLOE Sanders Attending Unavailable DENI, CHLOE Sanders Primary Care Unavailable ROJAS DOMINGUEZ Attending Unavailab le DENI, CHLOE Sanders Primary Care Unavailable DENI, CHLOE Sanders Attending Unavailable DENI, CHLOE Sanders Primary Care Unavailable DENI, CHLOE Sanders Referring Unavailable DENI, CHLOE Sanders Primary Care Unavailable DENI, CHLOE Sanders Primary Care Unavailable DENI, CHLOE Sanders Attending Unavailable DENI, CHLOE Sanders Primary Care Unavailable DENI, CHLOE Sanders Referring Unavailable DENI, CHLOE Sanders Referring Unavailable DENI, CHLOE Sanders Primary Care Unavailable DENI, CHLOE Sanders Primary Care Unavailable DENI, CHLOE Sanders Attending Unavailable DENI, CHLOE Sanders Primary Care Unavailable Gary CONTI, Dr. Hari Carter Attending Provider [phone]. Ashley Jacobs DO Referring Provider Unav conor Treviño MD, Dr. Wang Admit Provider [phone] [place] CONTI, Dr. Wang Attending Provider [phone] Allergies Allergy Classification Reported Allergen(s) Allergy Type Date of Onset Reaction(s) Facility Sulfonamides (antibiotic) (3 sources) Sulfonamides (Antibiotic) Drug Allergy 5 [facility] Work Phone: (3 sources) Sulfonamides (Antibiotic) drug allergy 3 [facility] Work Phone: (1 source) Sulfonamides (Antibiotic) Drug allergy (disorder) [facility] (20 sources) Sulfonamides (Antibiotic); Translations: [SULFA (SULFONAMIDE ANTIBIOTICS)] Drug Allergy 5 [facility] Work Phone: (20 sources) Sulfonamides (Antibiotic) Allergy to substance 2 Unknown [facility] (1 source) Sulfonamides (Antibiotic) Drug allergy (disorder) 5 [facility] Medications Current Medications Medication Drug Class(es) [...] Comment on above: Take 1 tablet by [facility] five times daily for 7 days. Take at first signs of outbreak. [id number] 200 actuat albuterol 0.09 mg/actuat metered dose inhaler (20 sources) beta2-Adrenergic Agonist Start: 04-28-20 End: 06-17-20 24 take 2 puff(s) by inhalation every four [...] Dihydropyridine Calcium Channel Jacob Start: 4 End: take 2 tablets by mouth once daily Amlodipine 5 mg tablet Active 10 mg PO DAILY 90 April 08, 2024 10:39am htn Start: 10-16-2023 take 10 mg by mouth once daily Amlodipine Active 10 MG PO DAILY October 16, 2023 2:30pm Start: 11-27-2018 End: 10-16-2023 take 1 tablet by mouth once daily Amlodipine 5 mg tablet Discontinued 5 mg PO DAILY April 07, 2023 4:42pm October 16, 2023 2:32pm htn Start: 01-08-2013 End: 11-27-2018 take 1 tablet by mouth once daily Amlodipine 10 mg tablet Discontinued 10 mg PO daily June 09, 2017 1:00am November 27, 2018 3:08pm BP Start: 07-18-2012 End: 06-09-2017 take 1 tablet by mouth once daily Amlodipine 5 MG tablet Discontinued 5 mg PO DAILY October 03, 2013 12:00am June 09, 2017 8:42pm Comment on above: Take 1 tablet by [facility] once daily. amoxicillin 875 mg oral tablet (7 sources) Penicillin-class Antibacterial Start: 4 End: take 1 tablet by mouth twice [...] on above: Take 1 tablet by dewayne two times a day for 10 days. atomoxetine 100 mg oral capsule (20 sources) Norepinephrine Reuptake Inhibitor Start: 12-25-19 End: 12-25-19 take 1 capsule by mouth once daily atomoxetine (STRATTERA) 100 mg capsule Indications: Attention deficit disorder, unspecified type Take 1 capsule by mouth once daily. 90 capsule 3 12/24/2024 12/24/2025 Active Start: 09-23-2024 End: 04-19-2025 take 1 capsule by mouth once daily Atomoxetine 40 mg capsule Discontinued 40 mg PO DAILY October 28, 2024 12:00am November 28, 2024 10:17am Start: 11-29-2023 End: 11-28-2024 take 1 capsule [...] day 60 capsule 11 10/25/2023 11/29/2023 Discontinued ciprofloxacin 500 mg oral tablet (20 sources) Quinolone Antimicrobial Start: 01-31-2025 take 1 tablet by mouth twice daily Ciprofloxacin Hcl 500 mg tablet Active 500 mg PO TWICE A DAY January 31, 2025 12:00am infection Start: 12-14-2022 End: 01-23-2023 ciprofloxacin HCl (CIPRO) 50 0 mg tablet Start: 04-29-2022 End: 08-03-2022 take 1 tablet by mouth twice daily Ciprofloxacin Hcl 250 mg tablet Discontinued 250 mg PO TWICE A DAY April 29, 2022 1:00am August 03, 2022 9:43am x7 days Start: 07-10-2019 End: 12-05-2019 take 1 tablet by mouth twice daily Ciprofloxacin Hcl 500 MG tablet Discontinued 500 mg PO TWICE A DAY 14 0 July 10, 2019 1:00am December 05, 2019 3:35pm Start: 03-16-2019 End: 06-07-2019 take 1 tablet by mouth twice daily Ciprofloxacin Hcl 500 MG tablet Discontinued 500 mg PO TWICE A DAY 60 0 March 16, 2019 12:00am June 07, 2019 4:24pm CPAP (20 sources) Start: 10-30-2019 CPAP Indicatio ns: DEENA (obstructive sleep apnea) Requires replacement machine at same settings. 1 Device 10/30/2019 Active Start: 10-30-2019 CPAP Indicatio ns: DENEA (obstructive sleep apnea) Requires replacement machine at [...] capsule (20 sources) Proton Pump Inhibitor Start: take 1 capsule by mouth twice daily Esomeprazole Magnesium 40 mg capsule,delayed release(DR/EC) Active 40 mg PO TWICE A DAY October 28, 2024 12:00am reflux Start: 09-06-2022 End: 10-16-2024 take 1 capsule by mouth twice daily [...] 01, 2020 3:53pm October 28, 2024 10:29am acid reflux Start: 10-01-2020 End: 10-01-2020 take 1 capsule [...] 07, 2019 1:00am December 05, 2019 3:35pm reflux Start: 07-10-2012 End: 11-27-2018 take 1 capsule by mouth once daily Esomeprazole Magnesium 40 MG capsule Discontinued 40 mg PO DAILY October 03, 2013 12:00am November 27, 2018 3:09pm Reflux Start: 07-10-2012 take 1 tablet by dewayne th once daily NEXIUM 40 MG CPDR One tablet by mouth daily ESOMEPRAZOLE MAGNESIUM [id number] Dionisio Herrera RN Comment on above: Take 1 capsule by [facility] twice daily before meals. Take 1 capsule by [facility] two times a day before meals. finasteride 5 mg oral tablet (20 sources) 5-alpha Reductase Inhibitor Start: 09-15-2024 take 1 tablet by mouth once daily Finasteride 5 mg tablet Active 5 mg PO DAILY October 28, 2024 12:00am prostate Start: 07-27-2018 End: 08-12-2020 take 1 tablet by mouth once daily Finasteride 5 MG tablet Discontinued 5 mg PO DAILY 30 July 27, 2018 1:00am November 27, 2018 3:10pm losartan potassium 100 mg oral tablet (20 sources) Angiotensin 2 Receptor Ajcob Start: 09-23-2024 End: 09-23-2025 take 1 tablet by mouth once daily Losartan 100 mg tablet Active 100 mg PO DAILY October 28, 2024 12:00am blood pressure Start: 07-05-2023 End: 08-16-2025 take 1 tablet by mouth once daily Losartan 50 mg tablet Discontinued 50 mg PO DAILY 90 3 July 05, 2023 1:00am October 28, 2024 10:30am Start: 10-31-2017 End: 07-26-2023 take 1 tablet by mouth once daily Losartan 25 mg tablet Discontinued 25 mg PO DAILY 90 3 April 07, 2023 4:43pm July 05, 2023 2:34pm Comment on above: Take 1 tablet by [facility] once daily. Multivitamin (Daily Multi-Vitamin) tablet (8 sources) Start: 10-28-2024 Multivitamin (Daily Multi-Vitamin) tablet Active 1 {tbl} PO DAILY October 28, 2024 12:00am vitamin Start: 10-28-2024 Multivitamin ( Daily Multi-Vitamin) tablet Active 1 {tbl} PO DAILY October 28, 2024 12:00am MULTIVITAMIN TAB (20 sources) Start: 09-26-2007 take 1 tablet by mouth once daily MULTIVITAMIN TAB Take 1 tablet by mouth once daily. 0 09/26/2007 Active Start: 09-26-2007 take 1 tablet by [facility] once daily MULTIVITAMIN TAB Take one(1) tablet daily BY MOUTH. 0 09/26/2007 Active Comment on above: Take one(1) tablet d aily BY MOUTH. Multivitamin,Tx-Iro n-Minerals (15 sources) Start: 12-10-2013 take 1 tablet by mouth once daily Multivitamin,Tx-Ir on-Minerals Active 1 TABLET PO DAILY December 10, 2013 8:26am Start: 12-10-2013 take 1 tablet by dewayne th once daily Multivitamin,Mw-Qoqj-Aqkymebh Active 1 T ABLET PO DAILY December 09, 2013 11:00pm Start: 12-10-2013 take 1 tablet by dewayne th once daily Multivitamin,Cp-Vekd-Seepzhdl Active 1 T ABLET PO DAILY December [...] 0 01/09/2024 01/14/2024 Active polyethylene glycol 3350 350259 mg / potassium chloride 2970 mg / sodium bicarbonate 6740 mg / sodium chloride 5860 mg / sodium sulfate 66727 mg powder for oral solution (1 source) Osmotic Laxative Start: 12-31-2024 End: 12-31-2024 peg 3350-Electrolytes (GOLYTELY) 236-22.74-6.74 -5.86 gram suspension Indications: Rectal bleeding Take 4,000 mL by mouth one time only for 1 dose. Refer to printed prep instructions from your provider. 4000 mL 12/31/2024 12/31/2024 Active predniSONE 20 mg oral tablet (20 sources) [...] 08, 2019 1:00am December 05, 2019 3:36pm bronchitis STARTED TAPER 07/04/19 Please contact the information source for Taper Schedule details. Start: 07-08-2019 End: 12-05-2019 Prednisone Discontinued 0 MG PO DAILY July 08, 2019 12:00am December 05, 2019 2:36pm STARTED TAPER 07/04/19 Start: 07-08-2019 End: 12-05-2019 Prednisone Discontinued 0 MG PO DAILY July 08, 2019 1:00am December 05, 2019 3:36pm STARTED TAPER 07/04/19 Comment on above: Take 2 tablets by mo [facility] once daily for 5 days. Take 4 tabs daily fo r 3 days, then 2 tabs daily for 3 days, then 1 tab daily for 3 days with food. Semaglutide (Weight Loss) (4 sources) Start: 12-02-2024 Semaglutide (Weight Loss) (Wegovy) 0.25 mg/0.5 mL pen injector Active 0.25 mg SC EVERY WEEK 2 0 December 02, 2024 12:00am Presence of stent in coronary artery Atherosclerosis of [place] coronary artery without angina pectoris Obstructive sleep apnea syndrome Presence of coronary angioplasty implant and graft Atherosclerotic heart disease of [place] coronary artery without angina pectoris Obstructive sleep apnea (adult) (pediatric) weight loss administer weeks 1 through 4 of therapy Start: 12-02-2024 Semaglutide (W eight Loss) (Wegovy) 0.25 mg/0.5 mL pen injector Active 0.25 mg SC EVERY WEEK 2 0 December 02, 2024 12:00am Presence of stent in coronary artery Atherosclerosis of [place] coronary artery without angina pectoris Obstructive sleep apnea syndrome Presence of coronary angioplasty implant and graft Atherosclerotic heart disease of [place] coronary artery without angina pectoris Obstructive sleep apnea (adult) (pediatric) administer weeks 1 through 4 of therapy semaglutide, weight loss, (WEGOVY) 0.5 mg/0.5 mL pen injector (5 sources) Start: 01-01-2025 End: 01-29-2025 inject 0.5 mg by subcutaneous injection every week semaglutide, weight loss, (WEGOVY) 0.5 mg/0.5 mL pen injector Inject 0.5 mg subcutaneously one time a week for 28 days. Patient should start on January 01, 2025. 2 mL 01/01/2025 01/29/2025 Active semaglutide, weight loss, (WEGOVY) 1 mg/0.5 mL pen injector (5 sources) Start: 01-22-2025 End: 04-16-2025 inject 1 mg by subcutaneous injection every week semaglutide, weight loss, (WEGOVY) 1 mg/0.5 mL pen injector Inject 1 mg subcutaneously one time a week. 2 mL 2 01/22/2025 04/16/2025 Active tamsulosin hydrochloride 0.4 mg oral capsule (20 sources) alpha-Adrener gic Jacob Start: 04-29-2022 take 1 capsule by mouth once daily Tamsulosin 0.4 mg capsule Active 0.4 mg PO DAILY April 29, 2022 1:00am prostate Start: 10-23-2018 End: 07-26-2021 take 2 capsules by mouth once daily at bedtime tamsulosin ER (FLOMAX) 0.4 mg cap Take 2 capsules by mouth daily at bedtime. 10/23/2018 07/26/2021 Discontinued (Discontinued by another Health Care Provider) Start: 07-27-2018 End: 07-10-2019 take 1 capsule by mouth once daily Tamsulosin 0.4 MG capsule Discontinued 0.4 mg PO DAILY 30 5 July 27, 2018 1:00am July 10, 2019 1:21pm 60 actuat testosterone 20.25 mg/actuat topical gel (20 sources) Androgen Start: 11-23-2021 Testosterone 2 0.25 mg/1.25 gram (1.62 %) gel in metered-dose pump Active 4 NMA TD DAILY November 23, 2021 12:00am low testosterone Start: 11-23-2021 testosterone ( ANDROGEL PUMP) 20.25 mg/1.25 gram (1.62 %) transdermal gel APPLY 4 PUMPS TOPICALLY DAILY. 09/22/2022 Active Start: 11-27-2018 End: 11-23-2021 inject 100 mg [...] 100 mg every 1 weeks TESTOSTERONE CYPIONATE [id number] Dyana Alvarez PA-C Start: 09-04-2013 TESTOSTERONE C YPIONATE 100 MG/ML SOLN 150 mg every 2 weeks TESTOSTERONE CYPIONATE [id number] Willis Alfred MD Comment on above: APPLY 4 PUMPS TOPICA LLY DAILY. Completed/Discontinued Medications Medication Drug Class(es) Dates Sig (Normalized) Sig (Original) acetaminophen 325 mg oral tablet (20 sources) Start: 07-25-2018 End: 11-27-2018 Acetaminophen 325 MG tablet Discontinued 1000 mg PO Q8H as needed for fever > 100.4 or pain 0 July 25, 2018 1:00am November 27, 2018 [...] 20, 2021 12:00am August 16, 2024 11:34am gout Start: 07-23-2018 End: 11-23-2021 take 1 tablet by mouth once daily Allopurinol 100 MG tablet Discontinued 100 mg PO DAILY July 23, 2018 1:00am November 23, 2021 9:00am Comment on above: Take 1 tablet by dewayne once daily. For gout. apixaban 5 mg oral tablet (20 sources) Factor Xa Inhibitor Start: 01-23-2023 End: 12-29-2023 take 1 tablet by mouth twice daily Apixaban (Eliquis) 5 mg tablet Discontinued 5 mg PO TWICE A DAY 60 January 30, 2023 4:29pm December 07, 2023 4:33pm afib Start: 12-15-2022 End: 01-30-2023 take 1 mg by mouth every twelve hours Apixaban (Eliquis) 5 mg tablet Discontinued mg PO Q12H December 15, 2022 12:00am January 30, 2023 4:30pm afib Start: 04-29-2022 End: 11-07-2022 take 1 tablet by mouth twice daily Apixaban 5 mg tablet Discontinued 5 mg PO TWICE A DAY 180 September 07, 2022 11:41am November 07, 2022 11:18am Comment on above: Take 1 tablet by dewayne th twice daily. aspirin 81 mg delayed release oral tablet (20 sources) Platelet Aggregation Inhibitor, Nonsteroidal Anti-inflammatory Drug Start: 07-05-2023 End: 01-30-2025 take 1 tablet by mouth once daily Aspirin 81 mg tablet,delayed release (DR/EC) Discontinued 81 mg PO DAILY July 05, 2023 1:00am January 30, 2025 7:53pm Start: 11-07-2022 End: 07-05-2023 Aspirin 325 mg tablet,delaye d release (DR/EC) Discontinued 81 mg PO DAILY 90 November 07, 2022 11:18am July 05, 2023 2:04pm Start: 11-07-2022 End: 07-05-2023 take 81 mg by mouth once daily Aspirin Discontinued 81 MG PO DAILY November 07, 2022 11:18am July 05, 2023 2:04pm Start: 11-02-2012 End: 11-07-2022 take 1 tablet by mouth once daily Aspirin (Adult Aspirin Regimen) 81 mg tablet,delayed release (DR/EC) Discontinued 81 mg PO DAILY 30 April 12, 2021 12:00am November 07, 2022 11:19am Start: 09-18-2012 take 1 tablet by dewayne th once daily ASPIRIN 325 MG TABS One tablet by mouth daily ASPIRIN [id number] Rubina Barger RN Start: 07-18-2012 take 1 tablet by dewayne th once daily ASPIRIN 81 MG TABS One tablet by mouth daily ASPIRIN [id number] Rubina Barger RN Comment on above: Take 81 mg by mouth once daily. atorvastatin 20 mg oral tablet (20 sources) HMG-CoA Reductase Inhibitor Start: End: take 10 mg by mouth at bedtime Atorvastatin 20 mg tablet Discontinued 10 mg PO AT BEDTIME 90 October 19, 2023 4:27pm August 16, 2024 12:01pm Start: 10-19-2023 take 10 mg by mouth at bedtime Atorvastatin Active 10 MG PO AT BEDTIME October 19, 2023 4:27pm Start: 07-10-2019 End: 10-21-2024 take 1 tablet by mouth at bedtime Atorvastatin 20 mg tablet Discontinued 20 mg PO AT BEDTIME 90 April 07, 2023 4:42pm October 19, 2023 4:27pm Start: 08-17-2016 End: 06-09-2017 take 1 tablet by mouth once daily Atorvastatin 10 MG tablet Discontinued 10 mg PO DAILY August 17, 2016 1:00am June 09, 2017 8:43pm Start: 09-18-2012 take 1 tablet by dewayne th once daily ATORVASTATIN CALCIUM 20 MG TABS One tablet by mouth daily ATORVASTATIN CALCIUM [id number] Willis Alfred MD Comment on above: Take 1 tablet by dewayne th daily at bedtime. For cholesterol. benzonatate 100 mg oral capsule (17 sources) Non-narcotic Antitussive Start: 06-13-20 End: 09-24-19 25 take 2 capsules by mouth every eight [...] th once daily WELLBUTRIN SR 150 MG [id number] One tablet by mouth daily BUPROPION HCL [id number] Dyana Alvarez PA-C Start: 01-08-2015 take 1 tablet by dewayne th once daily WELLBUTRIN SR 150 MG [id number] One tablet by mouth daily BUPROPION HCL [id number] Dyana Alvarez PA-C Comment on above: Take 1 tablet by dewayne th once daily. celecoxib 200 mg oral capsule (20 sources) Nonsteroidal Anti-inflammatory Drug Start: End: take 1 capsule by mouth once daily Celecoxib (Celebrex) 200 mg capsule Discontinued 200 mg PO DAILY October 01, 2020 12:00am October 20, 2021 8:33am cholecalciferol 0.025 mg oral tablet (20 sources) Vitamin D Start: 023 End: take 1 tablet by mouth once daily Cholecalciferol (Vitamin D3) (Vitamin D3) 25 mcg (1,000 unit) tablet Discontinued 1000 U PO DAILY December 15, 2022 12:00am August 16, 2024 11:35am general health Start: 05-01-2018 End: 02-18-2025 take 1 capsule by mouth once daily Cholecalciferol, Vitamin D3, (VITAMIN D) 25 mcg (1,000 unit) cap Indications: Vitamin D deficiency Take 1 capsule by mouth once daily. 90 capsule 3 02/18/2025 Active Comment on above: Take 1 capsule by [facility] once daily. citalopram 10 mg oral tablet (3 sources) Serotonin Reuptake Inhibitor Start: 014 take 1 tablet by mouth once daily CITALOPRAM HYDROBROMIDE 10 MG TABS One tablet by mouth daily CITALOPRAM HYDROBROMIDE [id number] Willis Alfred MD colchicine 0.6 mg oral tablet (6 sources) Start: 022 take 2 tablets by mouth every hour colchicine 0.6 mg tablet Take 2 tablets by mouth, wait one hour and take the third tablet. 3 tablet 0 12/11/2021 Active Comment on above: Take 2 tablets by [facility], wait one hour and take the third tablet. 24 hr desvenlafaxine succinate 25 mg extended release oral tablet (11 sources) Serotonin and Norepinephrine Reuptake Inhibitor Start: End: take 1 tablet by mouth once daily desvenlafaxine ER (PRISTIQ) 50 mg 24 hr tablet Take 1 tablet by mouth once daily. Patient should start on October 04, 2024. 30 tablet 5 10/04/2024 10/21/2024 Discontinued Start: 10-04-2024 take 1 tablet by [facility] once daily desvenlafaxine ER (PRISTIQ) 50 [...] 05, 2019 3:33pm October 01, 2020 3:52pm fibromyalgia Start: 12-05-2019 End: 10-01-2020 take 40 mg by mouth once daily Duloxetine Discontinued 40 MG PO DAILY December 05, 2019 3:33pm October 01, 2020 3:52pm Start: 06-07-2019 End: 12-05-2019 take 2 capsules by mouth once daily Duloxetine 30 mg capsule,delayed release(DR/EC) Discontinued 60 mg PO DAILY June 07, 2019 4:24pm December 05, 2019 3:36pm fibromyalgia Start: 06-07-2019 End: 12-05-2019 take 60 mg by mouth once daily Duloxetine Discontinued 60 MG PO DAILY June 07, 2019 4:24pm December 05, 2019 3:36pm Start: 10-30-2017 End: 06-07-2019 take 1 capsule by mouth once daily Duloxetine 30 MG capsule Discontinued 30 mg PO DAILY October 30, 2017 12:00am June 07, 2019 4:27pm fibromyalgia dutasteride 0.5 mg oral capsule (6 sources) 5-alpha Reductase Inhibitor Start: 07-18-2012 End: 01-08-2015 take 1 tablet by mouth once daily AVODART 0.5 MG CAPS One tablet by mouth daily DUTASTERIDE [id number] Dyana Alvarez PA-C enteric contrast (will be [...] 03/08/2024 03/08/2024 Discontinued ertapenem 1000 mg injection (20 sources) Penem Antibacterial Start: 07-25-2018 End: 07-28-2018 Ertapenem 1 GM/10 ML Vial Discontinued 1 g IV EVERY 24 HOURS 0 July 25, 2018 1:00am July 28, 2018 11:33am Fish Oils (6 sources) Start: 07-18-2012 End: 01-30-2013 take 1 tablet by mouth once daily FISH OIL CAPS One tablet by mouth daily OMEGA-3 FATTY ACIDS CAPS [id number] Willis Alfred MD Start: 07-18-2012 take 1 tablet by dewayne th once daily FISH OIL CAPS One tablet by mouth daily OMEGA-3 FATTY ACIDS CAPS [id number] Willis Alfred MD gabapentin 300 mg oral [...] 30, 2017 12:00am November 27, 2018 3:11pm neuropathy glucosamine 1000 mg oral tablet (6 sources) Start: 07-18-2012 End: 12-17-2012 take 1 tablet by mouth once daily GLUCOSAMINE HCL TABS One tablet by mouth daily GLUCOSAMINE HCL TABS Willis Alfred MD hydrocortisone 10 mg/ml / neomycin 3.5 mg/ml / polymyxin b 79560 unt/ml otic solution (20 sources) Aminoglycoside Antibacterial, Polymyxin-class Antibacterial, Corticosteroid Start: 02-12-2022 End: 04-29-2022 Neomycin-Polymyxi n-Hc 3.5-10,000-1 mg/mL-unit/mL-% solution Discontinued 4 NMA RIGHT EAR EVERY 6 HOURS 10 February 12, 2022 12:00am April 29, 2022 11:07am Start: 02-12-2022 End: 04-29-2022 Qiifgqbf-Cvgleiuiv-Rs Discon tinued 4 DRP RIGHT EAR EVERY 6 HOURS February 12, 2022 12:00am April 29, 2022 11:07am ibuprofen 600 mg oral tablet (20 sources) Nonsteroidal Anti-inflammatory Drug Start: 07-10-2019 End: 10-01-2020 take 1 tablet by mouth every six hours as needed for pain Ibuprofen 600 MG tablet Discontinued 600 mg PO EVERY 6 HOURS NEEDED as needed for Pain Score 1-/10 20 0 July 10, 2019 1:19pm October 01, 2020 3:52pm Benign neoplasm of prostate iv contrast (will be provided with radiology [...] One tablet by mouth daily (STOP) LISINOPRIL [id number] Dyana Alvarez PA-C Start: 07-10-2012 End: 07-18-2012 take 1 tablet by mouth once daily LISINOPRIL 10 MG TABS One tablet by mouth daily LISINOPRIL [id number] Dionisio Herrera RN meclizine hydrochloride 25 mg [...] 17, 2016 1:00am July 28, 2018 11:32am Fibromyalgia Comment on above: Take 1 tablet by [...] oral tablet (20 sources) beta-Adrenergic Jacob Start: 8 End: 9 take 1 tablet by mouth twice daily Metoprolol Tartrate 25 mg tablet Discontinued 25 mg PO TWICE A DAY 180 3 May 30, 2018 4:30pm November 27, 2018 3:11pm montelukast 10 mg oral tablet (6 sources) Leukotriene Receptor Antagonist Start: 3 End: 3 take 1 tablet by mouth once daily SINGULAIR 10 MG TABS One tablet by mouth daily MONTELUKAST SODIUM [id number] Dionisio Herrera RN MULTIPLE VITAMINS-MINERALS (1 source) Start: 3 take 1 tablet by mouth once daily CENTRUM SILVER TABS One tablet by mouth daily MULTIPLE VITAMINS-MINERALS [id number] Willis Alfred MD MULTIPLE VITAMINS-MINERALS (2 sources) Start: 3 take 1 tablet by mouth once daily CENTRUM SILVER TABS One tablet by mouth daily MULTIPLE VITAMINS-MINERALS [id number] Willis Alfred MD Multivitamin,Tx-Iron -Minerals 1 TABLET tablet (8 sources) Start: 4 End: 5 take 1 tablet by mouth once daily Multivitamin,Tx-Iron -Minerals 1 TABLET tablet Discontinued 1 {tbl} PO DAILY December 10, 2013 12:00am October 28, 2024 10:35am supplement Start: 12-10-2013 End: 10-28-2024 take 1 tablet by mouth once daily Multivitamin,Ik-Yuil-Cnuxbptb 1 TABLET t ablet Discontinued 1 {tbl} PO DAILY December 10, 2013 12:00am October 28, 2024 10:35am nitrofurantoin, macrocrystals 25 mg / nitrofurantoin, monohydrate 75 mg oral capsule (20 sources) Nitrofuran Antibacterial Start: 12-14-2022 End: 01-23-2023 take 1 capsule by mouth twice daily at mealtime Nitrofurantoin Monohyd/M-Cryst (Macrobid) 100 mg capsule Discontinued 100 mg PO TWICE A DAY 14 7 0 December 14, 2022 12:00am December 16, 2022 11:07am must administer with a meal/food Comment on above: Take 100 mg by mouth twice daily. For seven days for UTI nitroglycerin 0.4 mg sublingual tablet (6 sources) Nitrate Vasodilator Start: 09-18-2012 NITROSTAT 0.4 MG SUBL 1 tablet under tongue every 5 min up to 3 X NITROGLYCERIN [id number] Willis Alfred MD nystatin 942163 unt/ml oral suspension (20 sources) Polyene Antifungal Start: 07-28-2018 End: 08-04-2018 take 144109 [IU] by mouth every six hours Nystatin 500,000 UNIT/5 ML Udc Discontinued [id number] U PO EVERY 6 HOURS 1 7 0 July 28, 2018 1:00am August 03, 2018 1:00am August 04, 2018 1:12am OMEGA-3 FATTY ACIDS CPDR (1 source) Start: 03-31-2015 take 1 tablet by mouth once daily OMEGA 3 CPDR One tablet by mouth daily OMEGA-3 FATTY ACIDS CPDR [id number] Dyana Alvarez PA-C OMEGA-3 FATTY ACIDS CPDR (2 sources) Start: 03-31-2015 take 1 tablet by mouth once daily OMEGA 3 CPDR One tablet by mouth daily OMEGA-3 FATTY ACIDS CPDR [id number] Dyana Alvarez PA-C 24 hr oxybutynin chloride 5 mg extended release oral tablet (8 sources) Cholinergic Muscarinic Antagonist Start: 10-17-2018 End: 11-29-2021 take 1 tablet by mouth once daily oxybutynin XL (DITROPAN XL) 5 mg 24 hr tablet Take 1 tablet by mouth once daily. 5 10/17/2018 11/29/2021 Discontinued Comment on above: Take 1 tablet by dewayne th once daily. pantoprazole 40 mg delayed release oral tablet (20 sources) Proton Pump Inhibitor Start: 11-27-2018 End: 06-07-2019 take 1 tablet by mouth once daily Pantoprazole 40 mg tablet,delayed release (DR/EC) Discontinued 40 mg PO DAILY 90 90 0 November 27, 2018 12:00am June 07, 2019 4:25pm potassium chloride 20 meq extended release oral tablet (20 sources) Start: 12-14-2022 End: 10-28-2024 take 2 tablets by mouth once daily Potassium Chloride 20 mEq tablet extended release Discontinued 40 meq PO DAILY 8 0 December 14, 2022 12:00am October 28, 2024 10:33am Start: 12-14-2022 take 40 mEq by mouth once darlene y Potassium Chloride Active 40 MEQ PO DAILY 8 December 14, 2022 12:00am Start: 11-23-2021 take 20 mEq by mouth once darlene y Potassium Chloride Active 20 MEQ PO DAILY November 23, 2021 12:00am Start: 11-16-2021 End: 12-30-2024 take 2 tablets by mouth once daily Potassium Chloride 10 mEq tablet extended release Discontinued 20 meq PO DAILY November 23, 2021 12:00am August 16, 2024 11:35am hypokalemia Start: 08-27-2021 End: 11-13-2021 take 2 tablets [...] 10, 2019 1:00am November 23, 2021 9:01am SUPPLEMENT Start: 10-03-2013 End: 11-27-2018 take 4 tablets by mouth once daily Potassium Chloride 10 MEQ tablet extended release Discontinued 40 meq PO DAILY October 03, 2013 12:00am November 27, 2018 3:14pm Supplement Start: 10-03-2013 End: 11-27-2018 take 40 mEq by mouth once daily Potassium Chloride Dis continued 40 MEQ PO DAILY October 03, 2013 12:00am November 27, 2018 3:14pm Start: 01-30-2013 take 1 tablet by dewayne once daily KLOR-CON M20 20 MEQ CR-TABS One tablet by mouth daily POTASSIUM CHLORIDE DEB CR [id number] Willis Alfred MD Start: 01-30-2013 take 1 tablet by dewayne once daily KLOR-CON M20 20 MEQ CR-TABS One tablet by mouth daily POTASSIUM CHLORIDE DEB CR [id number] Willis Alfred MD Comment on above: Take 2 tablets by mo [facility] once daily. prasugrel 10 mg oral tablet (20 sources) [id number] Platelet Inhibitor Start: 09-18-2012 End: 10-30-2013 take 1 tablet by mouth once daily Prasugrel Hcl 10 MG tablet Discontinued 10 mg PO DAILY October 03, 2013 12:00am October 04, 2013 10:17am RANOLAZINE (6 sources) Anti-anginal Start: 12-27-2012 End: 12-28-2012 take 1 tablet by mouth twice daily RANEXA 500 MG [id number] One tablet by mouth twice daily RANOLAZINE [id number] Rubina Barger RN Start: 12-27-2012 take 1 tablet by dewayne th twice daily RANEXA 500 MG [id number] One tablet by mouth twice daily RANOLAZINE [id number] Rubina Barger RN Start: 12-27-2012 End: 12-28-2012 take 1 tablet by mouth twice daily RANEXA 500 MG [id number] One tablet by mouth twice daily RANOLAZINE [id number] Rubina Barger RN rivaroxaban 20 mg oral tablet (20 sources) Factor Xa Inhibitor Start: 06-07-2019 End: 12-05-2019 take 1 tablet by mouth once daily Rivaroxaban 20 MG tablet Discontinued 20 mg PO DAILY July 10, 2019 1:00am December 05, 2019 3:52pm HX BLOOD CLOTS Start: 03-16-2019 End: 06-07-2019 take 1 tablet by mouth once daily Rivaroxaban 15 MG tablet Discontinued 15 mg PO DAILY March 16, 2019 12:00am June 07, 2019 4:26pm Start: 09-10-2018 End: 11-27-2018 take 1 tablet by mouth twice daily Rivaroxaban 15 MG tablet Discontinued 15 mg PO TWICE A DAY 41 0 September 10, 2018 12:00am November 27, 2018 3:12pm Start: 10-30-2013 End: 12-11-2013 take 1 tablet by mouth once daily XARELTO 20 MG TABS One tablet by mouth daily RIVAROXABAN [id number] Rubina Barger RN sertraline 50 mg oral [...] 15, 2022 12:00am October 16, 2023 2:32pm depression Start: 12-15-2022 End: 10-16-2023 take 25 mg [...] 1 tablet by dewayne th once daily. Tirzepatide (Weight Loss) (6 sources) Start: 11-28-2024 End: 12-02-2024 Tirzepatide (Weight Loss) (Zepbound) 2.5 mg/0.5 mL pen injector Discontinued 2.5 mg SC EVERY WEEK 2 0 November 28, 2024 12:00am December 02, 2024 4:47pm for 4 weeks Start: 11-28-2024 Tirzepatide (W eight Loss) (Zepbound) 2.5 mg/0.5 mL pen injector Active 2.5 mg SC EVERY WEEK 2 November 28, 2024 12:00am for 4 weeks tiZANidine 4 mg oral tablet (15 sources) Central alpha-2 Adrenergic Agonist Start: 08-28-2024 End: 12-31-2024 tiZANidine (ZANAFLEX) 4 mg tablet Take 4 mg by mouth. 08/28/2024 12/31/2024 Discontinued valACYclovir 1000 mg oral tablet (20 sources) Herpesvirus Nucleoside Analog DNA Polymerase Inhibitor, Herpes Simplex Virus Nucleoside Analog DNA Polymerase Inhibitor, Herpes Zoster Virus Nucleoside Analog DNA Polymerase Inhibitor Start: 04-12-2021 End: 04-19-2021 Valacyclovir 1 gram tablet Discontinued 1000 mg PO Q8H 7 April 12, 2021 12:00am April 18, 2021 12:00am [...] unspecified type , Coronary artery disease involving [place] coronary artery of [place] heart without angina pectoris , Class 2 [...] unspecified type , Coronary artery disease involving [place] coronary artery of [place] heart without angina pectoris , Class 2 [...] unspecified type , Coronary artery disease involving [place] coronary artery of [place] heart without angina pectoris , Class 2 [...] Translations: [Unspecified atrial flutter] Onset: 3 Chronic Chronic obstructive pulmonary disease and bronchiectasis (5 sources) Bronchitis; Translations: [Bronchitis, not specified as acute or chronic] Onset: 5 12-29-2023 Episodic Coagulation and hemorrhagic disorders (20 sources) Thrombocytopenic disorder; Translations: [Thrombocytopenia, unspecified] Onset: 4 Resolved: 4 12-15-2022 Chronic Conditions associated with dizziness or vertigo (5 sources) Dizziness; Translations: [Lightheadedness] Onset: 7 08-17-2016 Episodic Conduction disorders (20 sources) First degree atrioventricular block; Translations: [Atrioventricular block, first degree] Onset: 4 07-05-2023 Chronic Comment on above: Maciel DPPM implante d [facility] on 01/31/25 Coronary atherosclerosis and other heart disease (20 sources) Coronary arteriosclerosis; Translations: [Angina pectoris] Onset: 3 Resolved: 5 07-10-2012 Chronic Comment on above: PTCA/stent to LAD Coronary atherosclerosis and other heart disease (4 sources) Coronary atherosclerosis and other heart disease Diabetes mellitus without complication (6 sources) Hyperglycemia; [...] disease without esophagitis] Onset: 1 06-18-2011 Chronic Essential hypertension (20 sources) Hypertensive disorder; Translations: [Essential (primary) hypertension] Onset: 2 Resolved: 4 07-10-2012 Chronic Fever of unknown origin (20 sources) Fever; Translations: [Fever, unspecified] Onset: 4 Resolved: 4 06-06-2019 Episodic Fluid and electrolyte disorders (20 sources) Hypokalemia; Translations: [Hypokalemia] Onset: 8 09-13-2017 Episodic Gastrointestinal hemorrhage (14 sources) Acute lower gastrointestinal hemorrhage; Translations: [Gastrointestinal hemorrhage, unspecified] Onset: 5 10-28-2024 Episodic Headache; including migraine (20 sources) Pain in face; Translations: [Facial pain] Onset: 4 Resolved: Episodic Hyperplasia of prostate (20 sources) Benign prostatic hyperplasia; Translations: [Benign prostatic hyperplasia without lower urinary tract symptoms] Onset: 4 02-29-2020 Chronic Immunizations and screening for infectious disease (1 source) Vaccination needed; Translations: [Encounter for immunization] 11-29-2023 Episodic Inflammatory conditions of male genital organs (20 sources) Acute prostatitis; Translations: [Acute prostatitis] Onset: 4 Resolved: 4 03-17-2019 Episodic Malaise and fatigue (20 sources) Fatigue; Translations: [Other fatigue] Onset: 4 Resolved: 4 10-30-2013 Episodic Nonspecific chest pain (20 sources) Chest pain, unspecified; Translations: [Chest pain] Onset: 3 Resolved: 4 07-10-2012 Episodic Nutritional deficiencies (1 source) Vitamin D deficiency; Translations: [Vitamin D deficiency, unspecified] 02-18-2025 Chronic Osteoarthritis (1 source) Primary osteoarthritis of ankle; Translations: [Primary osteoarthritis, right ankle and foot] Chronic Other bone disease and musculoskeletal deformities (1 source) Disorder of bone; Translations: [Disorder of bone, unspecified] Episodic Other circulatory disease (20 sources) History of transient ischemic attack; Translations: [Personal history of transient ischemic attack (TIA), and 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 residual deficits] Onset: 4 02-29-2020 Episodic Other connective tissue disease (1 source) [...] Translations: [Unspecified otitis externa, right ear] Onset: 4 Resolved: 4 02-20-2022 Chronic Other ear and sense organ disorders (1 source) Otalgia, right ear; Translations: [Otalgia, unspecified] Episodic Other endocrine disorders (20 sources) Adrenal mass; Translations: [Other specified disorders of adrenal gland] Onset: 6 06-15-2021 Chronic Other endocrine disorders (1 source) Testicular hypofunction; Translations: [Testicular hypofunction] Onset: 5 Chronic Other endocrine disorders (20 sources) Hypotestosteronism; Translations: [Endocrine disorder, unspecified] Onset: 4 06-06-2019 Episodic Other endocrine disorders (5 sources) Endocrine disorder, unspecified; Translations: [Unspecified endocrine disorder] Episodic Other eye disorders (1 source) Pain in eye; Translations: [Ocular pain, right eye] Episodic Other gastrointestinal disorders (1 source) Acute constipation; Translations: [Constipation, unspecified] 09-05-2023 Episodic Other gastrointestinal disorders (2 sources) Diarrhea; Translations: [Diarrhea, unspecified] 03-08-2024 Episodic Other lower respiratory disease (20 sources) Dyspnea; Translations: [Dyspnea, unspecified] Onset: 7 Resolved: 9 07-18-2012 Episodic Other lower respiratory disease (20 [...] cough] 12-13-2023 Episodic Other lower respiratory disease (4 sources) Cough; Translations: [Acute cough] 04-25-2024 Episodic Other lower respiratory disease (1 source) Hemoptysis; Translations: [Hemoptysis] 06-24-2024 Episodic Other lower respiratory disease (1 source) Shortness of breath; Translations: [SOB (shortness of breath)] Onset: 5 Episodic Other male genital disorders (20 sources) [...] (severe) obesity due to excess calories] Onset: 4 Resolved: 4 07-05-2023 Chronic Other nutritional; endocrine; and metabolic disorders (4 sources) Morbid (severe) obesity due to excess calories; Translations: [Morbid obesity] Onset: 5 07-05-2023 Chronic Other nutritional; endocrine; and metabolic disorders (6 sources) Body mass index 30+ - obesity; Translations: [Obesity, unspecified] 01-31-2025 Chronic Other nutritional; endocrine; and metabolic disorders (1 source) Obesity, unspecified; Translations: [Obesity, unspecified] Onset: 5 Chronic Other nutritional; endocrine; and metabolic disorders (1 source) Other obesity due to excess calories; Translations: [Other obesity due to excess calories] Onset: 5 Chronic Other nutritional; endocrine; and metabolic disorders (2 sources) Body mass index (BMI) 39.0-39.9, adult; Translations: [Body mass index [BMI] 39.0-39.9, adult] Onset: 5 Chronic Other nutritional; endocrine; and metabolic disorders (4 sources) Severe obesity; Translations: [Class 2 severe obesity due to excess calories with serious comorbidity and body mass index (BMI) of 39.0 to 39.9 in adult (HCC)] Onset: 5 02-14-2025 Chronic Other nutritional; endocrine; and metabolic disorders (1 source) Body mass index (BMI) 38.0-38.9, adult; Translations: [Class 2 obesity with body mass index (BMI) of 38.0 to 38.9 in adult, unspecified obesity type, unspecified whether serious comorbidity present] Onset: 5 Chronic Other screening for suspected conditions (not mental disorders or infectious disease) (20 sources) Cardiovascular stress test abnormal; Translations: [Abnormal result of cardiovascular function study, unspecified] Onset: 3 Resolved: 4 08-21-2012 Episodic Other screening for suspected conditions (not mental disorders or infectious disease) (20 sources) Abnormal result of cardiovascular function study, unspecified; Translations: [Decreased testosterone level ] Onset: 4 Resolved: 4 12-04-2013 Episodic Other upper respiratory infections (5 sources) Bacterial sinusitis; Translations: [Chronic sinusitis, unspecified] Chronic Peripheral and visceral atherosclerosis (20 sources) Intermittent claudication; Translations: [Peripheral vascular disease, unspecified] Onset: 3 Resolved: 5 01-08-2015 Chronic Pulmonary heart disease (20 sources) Pulmonary embolism; Translations: [Other pulmonary embolism without acute cor pulmonale] Onset: 4 Resolved: 3 01-21-2019 Episodic Comment on above: History of provoked embolism with hx PICC and travel per report. Residual codes; unclassified (20 sources) Obstructive sleep apnea syndrome; Translations: [Obstructive sleep apnea (adult) (pediatric)] Onset: 5 01-08-2015 Chronic Residual codes; unclassified (20 sources) Sleep apnea; Translations: [Sleep apnea, unspecified] Onset: 4 12-25-2013 Chronic Residual codes; unclassified (20 sources) Postprocedural state finding; Translations: [Presence of other specified functional implants] Onset: 1 10-20-2021 Chronic Residual codes; unclassified (4 sources) Obstructive sleep apnea (adult) (pediatric); Translations: [Obstructive sleep apnea (adult)(pediatric)] Onset: 5 07-05-2023 Chronic Residual codes; unclassified (1 source) Sleep apnea, unspecified; Translations: [Sleep apnea, unspecified type] Onset: 4 Chronic Residual codes; unclassified (16 sources) Other specified health status; Translations: [Failure of outpatient treatment] 12-15-2022 Episodic Residual codes; unclassified (1 source) Pain; Translations: [Pain, unspecified] 09-10-2021 Episodic Screening and history of mental health and substance abuse codes (20 sources) Ex-tobacco user; Translations: [Personal history of nicotine dependence] Onset: 4 02-29-2020 Episodic Substance-related disorders (1 source) Nicotine dependence, chewing tobacco, uncomplicated; Translations: [Nicotine dependence, chewing tobacco, uncomplicated] Onset: 8 Chronic Syncope (20 sources) Near syncope; Translations: [Syncope and collapse] Onset: 5 10-16-2023 Episodic Unclassified (2 sources) Long-term drug therapy; Translations: [Other intermediate (current) drug therapy] Onset: 3 12-17-2012 Unclassified (7 sources) Call KAYLEE for stress appointment time Unclassified (6 sources) G47.33 - Obstructive sleep apnea (adult) (pediatric),E66.09 - Other obesity due to excess calories,Z68.39 - Body mass index [BMI] 39.0-39.9, adult,I25.10 - Atherosclerotic heart disease of [place] coronary artery without angina pectoris Unclassified (3 sources) As scheduled Unclassified (1 source) Class 2 severe obesity due to excess calories with serious comorbidity and body mass index (BMI) of 39.0 to 39.9 in adult (HCC); Translations: [Class 2 severe obesity due to excess calories with serious comorbidity and body mass index (BMI) of 39.0 to 39.9 in adult (HCC)] Onset: 5 Unclassified (1 source) Acute cough; Translations: [Acute cough] Onset: 5 Unclassified (1 source) Class 2 obesity with body mass index (BMI) of 38.0 to 38.9 in adult, unspecified obesity type, unspecified whether serious comorbidity present; Translations: [Class 2 obesity with body mass index (BMI) of 38.0 to 38.9 in adult, unspecified obesity type, unspecified whether serious comorbidity present] Onset: 5 Urinary tract infections (20 sources) Urinary tract infectious disease; Translations: [Urinary tract infection, site not specified] Onset: 3 Episodic Past or Other Problems Problem Classification Problem [...] [Palpitations] Onset: 09-30-2005 Resolved: 07-13-2018 07-13-2018 Episodic Coronary atherosclerosis and other heart disease (20 sources) Coronary angioplasty status; Translations: [Presence of coronary angioplasty implant and graft] Onset: 06-19-2012 09-18-2012 Episodic Comment on above: PTCA/stent to LAD Miscellaneous mental health disorders (20 sources) Confusional state; 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] Onset: 07-26-2023 Resolved: 07-26-2023 07-26-2023 Chronic Other aftercare (1 source) Other intermediate (current) drug therapy; Translations: [Other intermediate teacher (current) drug therapy] Onset: 12-17-2012 12-17-2012 Episodic Other aftercare (7 sources) Patient encounter status; Translations: [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 term care administrator (current) use of insulin] Onset: 12-17-2012 Resolved: 07-26-2023 07-26-2023 Episodic Other aftercare (20 sources) Long-term current use of insulin; Translations: [long term care administrator (current) use of insulin] Onset: 12-17-2012 Resolved: 07-26-2023 07-26-2023 Episodic Other and unspecified benign neoplasm (20 sources) History of polyp of colon; Translations: [Personal history of colonic polyps] Onset: 12-01-2022 12-01-2022 Episodic Other disorders of stomach and duodenum (20 sources) Intestinal metaplasia of gastric mucosa; Translations: [Gastric intestinal metaplasia] Onset: 12-01-2022 12-01-2022 Episodic Other gastrointestinal disorders (1 source) Diarrhea, [...] Hemoptysis; Translations: [Hemoptysis] Onset: 06-24-2024 Episodic Other male genital disorders [...] Onset: 07-05-2023 Resolved: 07-26-2023 07-26-2023 Chronic Other skin disorders (20 sources) Hyperhidrosis; Translations: [Generalized hyperhidrosis] Onset: 12-25-2013 12-25-2013 Episodic Other upper respiratory infections (2 sources) Viral upper respiratory tract infection; Translations: [Acute upper respiratory infection, unspecified] Onset: 04-10-2024 04-10-2024 Episodic Pneumonia (except that caused by tuberculosis or sexually transmitted disease) (4 sources) Bacterial pneumonia; Translations: [Unspecified bacterial pneumonia] Onset: 07-08-2024 06-24-2024 Episodic Residual codes; unclassified (5 sources) Family [...] states] Onset: 07-26-2023 Resolved: 07-26-2023 07-26-2023 Episodic Spondylosis; intervertebral disc disorders; other back problems (20 sources) Spinal stenosis of lumbar region; Translations: [Spinal stenosis, lumbar region with neurogenic claudication] Onset: 06-22-2020 06-22-2020 Episodic Unclassified (20 sources) No response to treatment; Translations: [No response to treatment] Onset: 07-26-2023 Resolved: 07-26-2023 07-26-2023 Viral infection (20 sources) Disease caused by 2019-nCoV; Translations: [COVID-19] Onset: 01-09-2024 Resolved: 03-08-2024 01-09-2024 Episodic Results Test Name Value Interpretation Reference Range Facility Absolute lymphocyte countOrd ered By: Chapis Polo on 02-19-2025 Lymphocytes Auto (Unsp spec) [#/Vol] 0.90 10*3/uL 0.83-4.51 [facility] Absolute neutrophil countOrd ered By: Chapis Polo on 02-19-2025 Neutrophils (Bld) [#/Vol] 4.5 10*3/uL 2.0-7.7 [facility] Anion gap in Serum or Plasma Ordered By: Chapis Polo on 02-19-2025 Anion gap [Moles/Vol] 12 mmol/L 5-15 [facility] Automated lymphocyte count a s percentage of total leukocytesOrdered By: Chapis Polo on 02-19-2025 Lymphocytes/100 WBC Auto (Unsp spec) 14.8 % Low 19-41 [facility] BUN/creatinine ratioOrdered By: Chapis Polo on 02-19-2025 Urea nitrogen/Creatinine [Mass ratio] 13.3 mg/mg 10-20 [facility] Basophil percentageOrdered B y: Chapis Polo on 02-19-2025 Basophils/100 WBC (Bld) 0.2 % 0-1 [facility] Carbon dioxide, total [Moles /volume] in Central venous bloodOrdered By: Chapis Polo on 02-19-2025 CO2 [Moles/Vol] 23.2 mmol/L 21.0-32.0 [facility] Chloride assayOrdered By: Irina Polo on 02-19-2025 Chloride [Moles/Vol] 103 mmol/L 98-108 [facility] Eosinophil percentageOrdered By: Chapis Polo on 02-19-2025 Eosinophils/100 WBC (Bld) 1.2 % 0-5 [facility] Erythrocyte distribution wid th ratioOrdered By: Chapis Polo on 02-19-2025 Erythrocyte distribution width (RBC) [Ratio] 12.8 % 11.6-14.6 [facility] Erythrocyte distribution wid th standard deviationOrdered By: Chapis Polo on 02-19-2025 Erythrocyte distribution width (RBC) [Ratio] 38.6 fl 35.1-43.9 [facility] Glomerular filtration rate ( GFR) estimation/1.73 sq m using serum, plasma, or whole bOrdered By: Chapis Polo on 02-19-2025 GFR/1.73 sq M.predicted among non-blacks MDRD (S/P/Bld) [Vol rate/Area] 87 mL/min/{1.73_m2} >60 [facility] Comment on above: mL/min/1.73m2 CKD-EP I Creatinine Equation (2020) Hematocrit Auto (Bld) [Volum e fraction]Ordered By: Chapis Polo on 02-19-2025 Hematocrit (Bld) [Volume fraction] 43.3 % 40-54 [facility] Hemoglobin measurementOrdere d By: Chapis Polo on 02-19-2025 Hemoglobin (Bld) [Mass/Vol] 15.4 g/dL 13.0-16.5 [facility] Immature granulocytes/100 WB C Auto (Bld)Ordered By: Chapis Polo on 02-19-2025 Immature granulocytes/100 WBC (Bld) 0.200 % 0.0-0.9 [facility] Comment on above: IG% - Immature Granu locytes (promyelocytes, myelocytes and metamyelocytes) > 1% indicates that a LEFT SHIFT is Present. MCV (mean corpuscular volume ) determinationOrdered By: Chapis Polo on 02-19-2025 MCV (RBC) [Entitic vol] 82.5 fL 80-94 [facility] Magnesium measurement (mass/ volume)Ordered By: Chapis Polo on 02-19-2025 Magnesium (Unsp spec) [Mass/Vol] 2.3 mg/dL High 1.5-2.2 [facility] Mean corpuscular hemoglobin (MCH) determinationOrdered By: Chapis Polo on 02-19-2025 MCH (RBC) [Entitic mass] 29.3 pg 27.0-32.0 [facility] Mean corpuscular hemoglobin concentration (MCHC) determinationOrdered By: Chapis Polo on 02-19-2025 MCHC (RBC) [Mass/Vol] 35.6 g/dL 32-36 [facility] Mean platelet volume determi nationOrdered By: Chapis Polo on 02-19-2025 Platelet mean volume (Bld) [Entitic vol] 11.1 fL 6.2-12.0 [facility] Monocyte percentageOrdered B y: Chapis Polo on 02-19-2025 Monocytes/100 WBC (Bld) 9.6 % 0-10 [facility] Neutrophil percentageOrdered By: Chapis Polo on 02-19-2025 Neutrophils/100 WBC (Bld) 74.0 % High 47-70 [facility] Nucleated red blood cell per centageOrdered By: Chapis Polo on 02-19-2025 Nucleated RBC/100 WBC (Bld) [Ratio] 0 % 0-5 [facility] Platelet countOrdered By: Irina Polo on 02-19-2025 Platelets (Bld) [#/Vol] 168 10*3/uL 150-450 [facility] Potassium measurement (mass/ volume)Ordered By: Chapis Polo on 02-19-2025 Potassium (Unsp spec) [Mass/Vol] 3.7 mmol/L 3.3-5.1 [facility] RBC Auto (Bld) [#/Vol]Ordere d By: Chapis Polo on 02-19-2025 RBC (Bld) [#/Vol] 5.25 10*6/uL 4.6-6.2 [facility] Serum creatinine measurement (mass/volume)Ordered By: Chapis Polo on 02-19-2025 Creatinine [Mass/Vol] 0.95 mg/dL 0.70-1.20 [facility] Serum glucose measurement (m ass/volume)Ordered By: Chapis Polo on 02-19-2025 Glucose [Mass/Vol] 131 mg/dL High 70-99 [facility] Serum or plasma calcium peterson urement (mass/volume)Ordered By: Chapis Polo on 02-19-2025 Calcium [Mass/Vol] 9.2 mg/dL 7.6-11.0 [facility] Serum or plasma urea nitroge n measurement (mass/volume)Ordered By: Chapis Polo on 02-19-2025 Urea nitrogen [Mass/Vol] 13 mg/dL 4-19 [facility] Sodium levelOrdered By: Nahum Polo on 02-19-2025 Sodium [Moles/Vol] 138 mmol/L 133-145 [facility] TSH DL <= 0.005 mIU/L QnOrde red By: Chapis Polo on 02-19-2025 TSH Qn 1.110 uIU/mL 0.300-4.20 0 [facility] Troponin T.cardiac [Mass/vol ume] in Serum or Plasma by High sensitivity methodOrdered By: Chapis Polo on 02-19-2025 Troponin T.cardiac High sensitivity method [Mass/Vol] 22 ng/L <22 [facility] Troponin T.cardiac High sensitivity method [Mass/Vol] 23 ng/L High <22 [facility] Comment on above: Delta: 31 on 5-1604 White blood cell (WBC) count Ordered By: Chapis Polo on 02-19-2025 WBC (Bld) [#/Vol] 6.1 10*3/uL 4.4-11.0 [facility] Basic metabolic 2000 panelon 02-14-2025 Anion gap [Moles/Vol] 13 mmol/L Normal 8-15 [facility] Comment on above: Order Comment: Speci men Type: BLOOD SPECIMENOrdering Facility: [facility] Address: [address] [place] [address] Performed By: #### 3 3762-6, 3016-3, 89064-6 ####[facility] LABCLIA [id number] [address] [address] [place] Calcium [Mass/Vol] 9.2 mg/dL Normal 8.5-10.2 [facility] Comment on above: Order Comment: Speci men Type: BLOOD SPECIMENOrdering Facility: [facility] Address: [address] [place] [address] Performed By: #### 3 3762-6, 3016-3, 36112-5 ####[facility] LABCLIA [id number] [place] [address] [place] Chloride [Moles/Vol] 103 mmol/L Normal 98-107 [facility] Comment on above: Order Comment: Speci men Type: BLOOD SPECIMENOrdering Facility: [facility] Address: [address] [place], [place] [address] Performed By: #### 3 3762-6, 3016-3, 30183-5 ####[facility] LABCLIA [id number] [address] [address] [place] CO2 [Moles/Vol] 24 mmol/L Normal 22-30 [facility] Comment on above: Order Comment: Speci men Type: BLOOD SPECIMENOrdering Facility: [facility] Address: [address] [place], [place] [address] Performed By: #### 3 3762-6, 3016-3, 90112-1 ####[facility] LABCLIA [id number] [address] [address] [place] Creatinine [Mass/Vol] 0.93 mg/dL Normal 0.73-1.22 [facility] Comment on above: Order Comment: Dunia peters Type: BLOOD SPECIMENOrdering Facility: [facility] Address: [address] [place] [id number] Performed By: #### 3 3762-6, 3016-3, 81724-6 ####[facility] [id number] [address] [address] [place] eGFRcr SerPlBld CKD-EPI 2020 90 mL/min/1.73m??? Normal >=60 [facility] Comment on above: Order Comment: Dunia peters Type: BLOOD SPECIMENOrdering Facility: [facility] Address: [address] [place] [address] Result Comment: Jaysrhee mated Glomerular Filtration Rate (eGFR) is calculated using the 2020 CKD-EPI creatinine equation. This equation utilizes serum creatinine, sex, and age as parameters. The creatinine assay has traceable calibration to isotope dilution-mass spectrometry. Refer to KDIGO guidelines for clinical interpretation. In patients with unstable renal function, e.g. those with acute kidney injury, the eGFR may not accurately reflect actual GFR. Performed By: #### 3 3762-6, 3016-3, 63366-1 ####[facility] [id number] [address] [address] [place] Glucose [Mass/Vol] 121 mg/dL High 74-99 [facility] Comment on above: Order Comment: Dunia fran Type: BLOOD SPECIMENOrdering Facility: [facility] Address: [address] [place] [address] Result Comment: The [place] [employer] (ADA) provides guidance for cutoff values for fasting glucose and random glucose. The ADA defines fasting as no caloric intake for at least 8 hours. Fasting plasma glucose results between 100 to 125 mg/dL indicate increased risk for diabetes (prediabetes).Fasting plasma glucose results greater than or equal to 126 mg/dL meet the criteria for diagnosis of diabetes. In the absence of unequivocal hyperglycemia, results should be confirmed by repeat testing. In a patient with classic symptoms of hyperglycemia or hyperglycemic crisis, random plasma glucose results greater than or equal to 200 mg/dL meet the criteria for diagnosis of diabetes.Reference: Standards of Medical Care in Diabetes 2016, [place] [employer]. Diabetes Care. 2016.39(Suppl 1). Performed By: #### 3 3762-6, 3016-3, 25073-6 ####[facility] LABCLIA [id number] [place] [address] [place] Potassium [Moles/Vol] 4.0 mmol/L Normal 3.7-5.1 [facility] Comment on above: Order Comment: Paragi men Type: BLOOD SPECIMENOrdering Facility: [facility] Address: [address] [place] [address] Performed By: #### 3 3762-6, 6-3, 04119-3 ####[facility] LABCLIA [id number] [place] [address] [place] Sodium [Moles/Vol] 140 mmol/L Normal 136-144 [facility] Comment on above: Order Comment: Paragi fran Type: BLOOD SPECIMENOrdering Facility: [facility] Address: [address] [place] [address] Performed By: #### 3 3762-6, 3016-3, 10007-0 ####[facility] LABCLIA [id number] [place] [address] [place] Urea nitrogen [Mass/Vol] 13 mg/dL Normal 9-24 [facility] Comment on above: Order Comment: Speci men Type: BLOOD SPECIMENOrdering Facility: [facility] Address: [address] [place] [address] Performed By: #### 3 3762-6, 3016-3, 09274-8 ####[facility] LABCLIA [id number] [address] [address] [place] CBC W Auto Differential pane l (Bld)on 02-14-2025 Basophils (Bld) [#/Vol] 0.04 10*3/uL Normal <0.11 [facility] Comment on above: Order Comment: Speci men Type: BLOOD SPECIMENOrdering Facility: [facility] Address: [address] [place] [address] Performed By: #### 5 7021-8 ####[facility] LABCLIA [id number] [facility] [place] [address] [place] Basophils/100 WBC (Bld) 0.7 % Normal [facility] Comment on above: Order Comment: Speci men Type: BLOOD SPECIMENOrdering Facility: [facility] Address: [address] [place] [address] Performed By: #### 5 7021-8 ####[facility] LABCLIA [id number] [address], [place] [address] [place] Differential cell count method Nom (Bld) Auto Normal [facility] Comment on above: Order Comment: Speci men Type: BLOOD SPECIMENOrdering Facility: [facility] Address: [address] [place] [address] Performed By: #### 5 7021-8 ####[facility] LABCLIA [id number] [facility] [place] [address] [place] Eosinophils (Bld) [#/Vol] 0.10 10*3/uL Normal <0.46 [facility] Comment on above: Order Comment: Speci men Type: BLOOD SPECIMENOrdering Facility: [facility] Address: [address] [place] [address] Performed By: #### 5 7021-8 ####[facility] LABCLIA [id number] [place] [address] [place] Eosinophils/100 WBC (Bld) 1.7 % Normal [facility] Comment on above: Order Comment: Speci men Type: BLOOD SPECIMENOrdering Facility: [facility] Address: [address] [place] [address] Performed By: #### 5 7021-8 ####[facility] LABCLIA [id number] [address], [place] [address] [place] Erythrocyte distribution width (RBC) [Ratio] 12.9 % Normal 11.5-15.0 [facility] Comment on above: Order Comment: Speci men Type: BLOOD SPECIMENOrdering Facility: [facility] Address: [address] [place] [address] Performed By: #### 5 7021-8 ####[facility] LABCLIA [id number] [address], [place] [address] [place] Hematocrit (Bld) [Volume fraction] 43.7 % Normal 39.0-51.0 [facility] Comment on above: Order Comment: Speci men Type: BLOOD SPECIMENOrdering Facility: [facility] Address: [address] [place] [address] Performed By: #### 5 7021-8 ####[facility] LABIA [id number] [address], [place] [address] [place] Hemoglobin (Bld) [Mass/Vol] 15.2 g/dL Normal 13.0-17.0 [facility] Comment on above: Order Comment: Speci men Type: BLOOD SPECIMENOrdering Facility: [facility] Address: [address] [place] [address] Performed By: #### 5 7021-8 ####[facility] LABCLIA [id number] [address], [place] [address] [place] Immature granulocytes (Bld) [#/Vol] 10*3/uL Normal <0.10 [facility] Comment on above: Order Comment: Speci men Type: BLOOD SPECIMENOrdering Facility: [facility] Address: [address] [place] [address] Performed By: #### 5 7021-8 ####[facility] LABIA [id number] [address], [place] [address] [place] Immature granulocytes/100 WBC (Bld) 0.2 % Normal [facility] Comment on above: Order Comment: Speci men Type: BLOOD SPECIMENOrdering Facility: [facility] Address: [address] [place] [address] Performed By: #### 5 7021-8 ####[facility] LABCLIA [id number] [place] [address] [place] Lymphocytes (Bld) [#/Vol] 1.00 10*3/uL Normal 1.00-4.00 [facility] Comment on above: Order Comment: Speci men Type: BLOOD SPECIMENOrdering Facility: [facility] Address: [address] [place] [address] Performed By: #### 5 7021-8 ####[facility] LABCLIA [id number] [address] [place] Lymphocytes/100 WBC (Bld) 16.8 % Normal [facility] Comment on above: Order Comment: Speci men Type: BLOOD SPECIMENOrdering Facility: [facility] Address: [address] [place] [address] Performed By: #### 5 7021-8 ####[facility] LABCLIA [id number] [place] [address] [place] MCH (RBC) [Entitic mass] 29.4 pg Normal 26.0-34.0 [facility] Comment on above: Order Comment: Speci men Type: BLOOD SPECIMENOrdering Facility: [facility] Address: [address] [place] [address] Performed By: #### 5 7021-8 ####[facility] LABCLIA [id number] [place] [address] [place] MCHC (RBC) [Mass/Vol] 34.8 g/dL Normal 30.5-36.0 [facility] Comment on above: Order Comment: Speci men Type: BLOOD SPECIMENOrdering Facility: [facility] Address: [address] [place] [address] Performed By: #### 5 7021-8 ####[facility] LABCLIA [id number] [place] [address] [place] MCV (RBC) [Entitic vol] 84.5 fL Normal 80.0-100.0 [facility] Comment on above: Order Comment: Speci men Type: BLOOD SPECIMENOrdering Facility: [facility] Address: [address] [place] [address] Performed By: #### 5 7021-8 ####[facility] LABCLIA [id number] [address], [place] [address] [place] Monocytes (Bld) [#/Vol] 0.52 10*3/uL Normal <0.87 [facility] Comment on above: Order Comment: Speci men Type: BLOOD SPECIMENOrdering Facility: [facility] Address: [address] [place] [address] Performed By: #### 5 7021-8 ####[facility] LABIA [id number] [place] [address] [place] Monocytes/100 WBC (Bld) 8.7 % Normal [facility] Comment on above: Order Comment: Speci men Type: BLOOD SPECIMENOrdering Facility: [facility] Address: [address] [place] [address] Performed By: #### 5 7021-8 ####[facility] LABCLIA [id number] [place] [address] [place] Neutrophils (Bld) [#/Vol] 4.28 10*3/uL Normal 1.45-7.50 [facility] Comment on above: Order Comment: Speci men Type: BLOOD SPECIMENOrdering Facility: [facility] Address: [address] [place] [address] Performed By: #### 5 7021-8 ####[facility] LABCLIA [id number] [place] [address] [place] Neutrophils/100 WBC (Bld) 71.9 % Normal [facility] Comment on above: Order Comment: Speci men Type: BLOOD SPECIMENOrdering Facility: [facility] Address: [address] [place] [address] Performed By: #### 5 7021-8 ####[facility] LABCLIA [id number] [address], [place] [address] [place] Nucleated RBC (Bld) [#/Vol] 10*3/uL Normal <0.01 [facility] Comment on above: Order Comment: Speci men Type: BLOOD SPECIMENOrdering Facility: [facility] Address: [address] [place] [address] Performed By: #### 5 7021-8 ####[facility] LABCLIA [id number] [address], [place] [address] [place] Nucleated RBC/100 WBC (Bld) [Ratio] 0.0 /100 WBC Normal [facility] Comment on above: Order Comment: Speci men Type: BLOOD SPECIMENOrdering Facility: [facility] Address: [address] [place] [address] Performed By: #### 5 7021-8 ####[facility] LABCLIA [id number] [address], [facility] [place] Platelet mean volume (Bld) [Entitic vol] 11.8 fL Normal 9.0-12.7 [facility] Comment on above: Order Comment: Speci men Type: BLOOD SPECIMENOrdering Facility: [facility] Address: [address] [place] [address] Performed By: #### 5 7021-8 ####[facility] LABCLIA [id number] [address], [facility] [place] Platelets (Bld) [#/Vol] 183 10*3/uL Normal 150-400 [facility] Comment on above: Order Comment: Speci men Type: BLOOD SPECIMENOrdering Facility: [facility] Address: [address] [place] [address] Performed By: #### 5 7021-8 ####[facility] LABCLIA [id number] [place] [address] [place] RBC (Bld) [#/Vol] 5.17 10*6/uL Normal 4.20-6.00 [facility] Comment on above: Order Comment: Speci men Type: BLOOD SPECIMENOrdering Facility: [facility] Address: [address] [place] [address] Performed By: #### 5 7021-8 ####[facility] LABIA [id number] [place] [address] [place] WBC (Bld) [#/Vol] 5.95 10*3/uL Normal 3.70-11.00 [facility] Comment on above: Order Comment: Speci men Type: BLOOD SPECIMENOrdering Facility: [facility] Address: [address] [place] [address] Performed By: #### 5 7021-8 ####[facility] LABIA [id number] [place] [address] [place] CNOVon 02-14-2025 CNOV Normal [facility] D dimer FEU PPP-mCncon 02-14 Fibrin D-dimer FEU (PPP) [Mass/Vol] 430 ng/mL FEU Normal <500 [facility] Comment on above: Order Comment: Speci men Type: BLOOD SPECIMENOrdering Facility: [facility] Address: [address] [place] [address] Performed By: #### 4 8065-7 ####[facility] LABCLIA [id number] [place] [address] [place] D-DIMERon 02-14-2025 Fibrin D-dimer FEU (PPP) [Mass/Vol] 430 NINF [facility] Fibrin D-dimer FEU (PPP) [Ma ss/Vol]on 02-14-2025 D Dimer Age-related Cutoff 670 ng/mL FEU [facility] 500 ng/mL FEU is the D Dimer [...] 311:1117 and Andreas Fisher N, et al. Vandana Int Med 2016 165:253. [facility] D DIMER AGE-RELATED CUTOFF 670 ng/mL FEU Normal [facility] Comment on above: Order Comment: Dunia peters Type: BLOOD SPECIMENOrdering Facility: [facility] Address: [address] [place] [address] Performed By: #### 4 8065-7 ####[facility] LABCLIA [id number] [place], [place] [id number] [place] [address] STATES [place] [facility] NT-proBNP [facility]-ncon 02-14 Natriuretic peptide.B prohormone N-Terminal [Mass/Vol] 49 pg/mL Normal <125 [facility] Comment on above: Order Comment: Dunia peters Type: BLOOD SPECIMENOrdering Facility: [facility] Address: [address] [place] [address] Performed By: #### 3 3762-6, 3016-3, 43464-4 ####[facility] LABCLIA [id number] [address] [place] TSH SerPl-aCncon 02-14-2025 TSH Qn 2.020 m[IU]/L Normal 0.270-4.20 0 [facility] Comment on above: Order Comment: Speci men Type: BLOOD SPECIMENOrdering Facility: [facility] Address: [address] [place] [address] [place] [address] Performed By: #### 3 3762-6, 3016-3, 35240-2 ####[facility] LABCLIA [id number] [place] [address] [place] XR CHEST 2V FRONTAL/LATon XR CHEST 2V FRONTAL/LAT Normal [facility] XR Chest PA and Lateralon Radiology Study observation (narrative) [facility] IMPRESSION: No acute radiographic abnormality. Coding Spec: OSMANI Transcribe Date/Time: Feb 14 2025 12:18P Dictated by : JUAN JOSE BROWN MD This examination was interpreted and the report reviewed and electronically signed by: JUAN JOSE BROWN MD on Feb 14 2025 12:20PM [facility] DIVISION OF RADIOLOGY * * *Final Report* * * DATE OF EXAM: Feb 14 2025 12:16PM WOX [id number] - XR CHEST 2V FRONTAL/LAT / PROCEDURE REASON: multiple diagnoses * * * * Physician Interpretation * * * * EXAMINATION: CHEST RADIOGRAPH (2 VIEW FRONTAL & LATERAL) CLINICAL HISTORY: SOB (shortness of breath) Chest discomfort MQ: XC2_6 EXAM DATE/TIME: 02/14/2025 12:16 PM COMPARISON: 11/18/2024 RESULT: Lines, tubes, and devices: Pacemaker leads entering from the left subclavian region, one superimposing the right atrium, the other superimposing the base of the heart to the left midline. Lungs and pleura: No consolidation. No lung mass. No pleural effusion. No pneumothorax. Pulmonary vascularity normal.. Cardiomediastinal silhouette: Stable cardiac size. Bones and soft tissues: Stimulator noted superimposing the lower thoracic spine DIVISION OF RADIOLOGY Provider, Tavo Rocha - 02/14/2025 * * *Final Report* * * DATE OF EXAM: Feb 14 2025 12:16PM WOX [id number] - XR CHEST 2V FRONTAL/LAT / PROCEDURE REASON: multiple diagnoses * * * * Physician Interpretation * * * * EXAMINATION: CHEST RADIOGRAPH (2 VIEW FRONTAL & LATERAL) CLINICAL HISTORY: SOB (shortness of breath) Chest discomfort MQ: XC2_6 EXAM DATE/TIME: 02/14/2025 12:16 PM COMPARISON: 11/18/2024 RESULT: Lines, tubes, and devices: Pacemaker leads entering from the left subclavian region, one superimposing the right atrium, the other superimposing the base of the heart to the left midline. Lungs and pleura: No consolidation. No lung mass. No pleural effusion. No pneumothorax. Pulmonary vascularity normal.. Cardiomediastinal silhouette: Stable cardiac size. Bones and soft tissues: Stimulator noted superimposing the lower thoracic spine IMPRESSION IMPRESSION: No acute radiographic abnormality. Coding Spec: OSMANI Transcribe Date/Time: Feb 14 2025 12:18P Dictated by : JUAN JOSE BROWN MD This examination was interpreted and the report reviewed and electronically signed by: JUAN JOSE BROWN MD on Feb 14 2025 12:20PM EST [facility] XR Chest PA and LateralOrder ed By: Ccf Provider on 02-14-2025 [facility] Pacemaker Checkon 02-12-2025 Pacemaker Check [facility] [address] [place] [address]. [address] [place], [place] [address] Pacemaker Check Date of Service: 02/12/25 1634 MR#: [id number] Acct: [id number] Name: DURANJERO JUANA Rep #: [id number] : 1955 From: Jodi Soto Age/Sex: 69/M [place] [facility]: Signed Billing Codes PM Device Codes: 40653 PM Dev Prog Eval, Dual Assessment and Plan Assessment and Plan (1) Presence of cardiac pacemaker: Status: Chronic Comment: Maciel DPPM implanted [facility] on 01/31/25 (2) AV block, 3rd degree: Status: Chronic 02/12/25 1638 Date Jodi Cota Signature: Date (if applicable) CC: Normal [facility] Lyme Antibodies,W [place] Lyme Additional Comment Normal . [facility] Comment on above: Result Comment: Per CDC criteria, the Lyme IgG Immunoblot is interpreted as positive if IgG-class antibodies are detected to 5 or more B. burgdorferi proteins, and the Lyme IgM Immunoblot is interpreted as positive if IgM-class antibodies are detected to 2 or more B. burgdorferi proteins. Immunoblot patterns not meeting these criteria should not be interpreted as positive. Epitopes from certain B. burgdorferi proteins (e.g., p41) are conserved across other bacteria, which may lead to the detection of IgM-and/or IgG class antibodies on the Lyme disease immunoblots in patients without Lyme disease. Immunoblot should only be ordered on specimens that are positive or equivocal by an FDA-licensed Lyme disease antibody screening test (e.g., EIA). Results of the Lyme IgM immunoblot should not be considered in patients with 30 or more days of symptoms. Performed at: [address] [id number] [employer] Rep: Teresa Olivia MD, Phone: [phone] Performed By: #### L 7000.5800 ####[facility] [address] [place], [address] LYME IgG INTERP Negative Normal Negative [facility] Comment on above: Performed By: #### L 7000.5800 ####[facility] [address] [place], [address] LYME IgM INTERP Negative Normal Negative [facility] Comment on above: Result Comment: Godwin marquez Note: Lyme immunoblot alone is not recommended for the diagnosis of Lyme disease. Current guidelines recommend the use of a two-tiered approach to Lyme serology testing to improve the sensitivity and specificity of testing. [facility] offers test code 213954 Lyme Disease Serology with Reflex to aid in the diagnosis of Lyme Disease. Performed By: #### L 700 ####[facility] [address] [place], [address] P18 Ab Absent Normal . [facility] Comment on above: Performed By: #### L 6999.5799 ####[facility] [address] [place], [address] P23 Ab Absent Normal . [facility] Comment on above: Performed By: #### L 6999.5799 ####[facility] [address] [place], [address] P28 Ab Absent Normal . [facility] Comment on above: Performed By: #### L ####[facility] [address] [place], [address] P30 Ab Absent Normal . [facility] Comment on above: Performed By: #### L 6999.5799 ####[facility] [address] [place], [address] P39 Ab Absent Normal . [facility] Comment on above: Performed By: #### L ####[facility] [address] [place], [address] P41 Ab Absent Normal . [facility] Comment on above: Performed By: #### L ####[facility] [address] [place], [address] P45 Ab Absent Normal . [facility] Comment on above: Performed By: #### L ####[facility] [address] [place], [address] P58 Ab Absent Normal . [facility] Comment on above: Performed By: #### L 6999.5799 ####[facility] [address] [place], [address] P66 Ab Absent Normal . [facility] Comment on above: Performed By: #### L 7000.5800 ####[facility] [address] [place], [address] P93 Ab Absent Normal . [facility] Comment on above: Performed By: #### L 7000.5800 ####[facility] [address] [place], [address] CNPTOUTREACHon 02-03-2025 CNPTOUTREACH Normal [facility] Anion gap in Serum or Plasma Ordered By: Davy Lanier on 02-01-2025 Anion gap [Moles/Vol] 13 mmol/L 10-31 [facility] BUN/creatinine ratioOrdered By: Davy Lanier on 02-01-2025 Urea nitrogen/Creatinine [Mass ratio] 13.2 mg/mg 04-07 [facility] Basic Metabolic Profile (BMP )on 02-01-2025 BUN/CRE 13.2 RATIO Normal 04-07 [facility] Comment on above: Performed By: #### L 100.0100, L500.2500 #### [facility] [address] [place], [address] Calcium [Mass/Vol] 8.9 mg/dL Normal 7.6-11.0 [facility] Comment on above: Performed By: #### L 100.0100, L500.2500 #### [facility] [address] [place], [address] Chloride [Moles/Vol] 104 mmol/L Normal 98-108 [facility] Comment on above: Performed By: #### L 100.0100, L500.2500 #### [facility] [address] [place], [address] CO2 [Moles/Vol] 20.5 mmol/L Low 21.0-32.0 [facility] Comment on above: Performed By: #### L 100.0100, L500.2500 #### [facility] [address] [place], [address] Creatinine [Mass/Vol] 0.87 mg/dL Normal 0.70-1.20 [facility] Comment on above: Performed By: #### L 100.0100, L500.2500 #### [facility] [address] [place], [address] ECRCL 127.45 ml/min Normal 50-250 [facility] Comment on above: Performed By: #### L 100.0100, L500.2500 #### [facility] [address] [place], [address] GAP 13 Normal 5-15 [facility] Comment on above: Performed By: #### L 100.0100, L500.2500 #### [facility] [address] [place], [address] GFR/1.73 sq M.predicted among non-blacks MDRD (S/P/Bld) [Vol rate/Area] 95 mL/min/{1.73_m2} Normal >60 [facility] Comment on above: Result Comment: mL/m in/1.73m2 CKD-EPI Creatinine Equation (2020) Performed By: #### L 100.0100, L500.2500 #### [facility] [address] [place], [address] Glucose [Mass/Vol] 109 mg/dL High 70-99 [facility] Comment on above: Performed By: #### L 100.0100, L500.2500 #### [facility] [address] [place], [address] Potassium [Moles/Vol] 3.5 mmol/L Normal 3.3-5.1 [facility] Comment on above: Result Comment: Hemo lysis present, Results??could be affected. ?? Performed By: #### L 100.0100, L500.2500 #### [facility] [address] [place], [address] Sodium [Moles/Vol] 138 mmol/L Normal 133-145 [facility] Comment on above: Performed By: #### L 100.0100, L500.2500 #### [facility] [address] [place], [address] Urea nitrogen [Mass/Vol] 11 mg/dL Normal 4-19 [facility] Comment on above: Performed By: #### L 100.0100, L500.2500 #### [facility] [address] [place], [address] CBC-Complete Blood Cnt No ffon 02-01-2025 Erythrocyte distribution width (RBC) [Ratio] 12.9 % Normal 11.6-14.6 [facility] Comment on above: Performed By: #### L 499.0042 #### [facility] [address] [place], [address] Hematocrit (Bld) [Volume fraction] 42.7 % Normal 40-54 [facility] Comment on above: Performed By: #### L 499.0042 #### [facility] [address] [place], [address] Hemoglobin (Bld) [Mass/Vol] 14.9 g/dL Normal 13.0-16.5 [facility] Comment on above: Performed By: #### L 499.0042 #### [facility] [address] [place], [address] MCH (RBC) [Entitic mass] 29.2 pg Normal 27.0-32.0 [facility] Comment on above: Performed By: #### L 499.0042 #### [facility] [address] [place], [address] MCHC (RBC) [Mass/Vol] 34.9 g/dL Normal 32-36 [facility] Comment on above: Performed By: #### L 499.0042 #### [facility] [address] [place], [address] MCV (RBC) [Entitic vol] 83.6 fL Normal 80-94 [facility] Comment on above: Performed By: #### L 499.0042 #### [facility] [address] [place], [address] Platelet mean volume (Bld) [Entitic vol] 11.2 fL Normal 6.2-12.0 [facility] Comment on above: Performed By: #### L 499.0042 #### [facility] [address] [place], [address] Platelets (Bld) [#/Vol] 145 10*3/uL Low 150-450 [facility] Comment on above: Performed By: #### L 499.0042 #### [facility] [address] [place], [address] RBC (Bld) [#/Vol] 5.11 10*6/uL Normal 4.6-6.2 [facility] Comment on above: Performed By: #### L 499.0042 #### [facility] [address] [place], [address] RDW SD 38.8 fl Normal 35.1-43.9 [facility] Comment on above: Performed By: #### L 499.0042 #### [facility] [address] [place], [address] WBC (Bld) [#/Vol] 5.8 10*3/uL Normal 4.4-11.0 [facility] Comment on above: Performed By: #### L 499.0042 #### [facility] [address] [place], [address] Carbon dioxide, total [Moles /volume] in Central venous bloodOrdered By: Davy Lanier on 02-01-2025 CO2 [Moles/Vol] 20.5 mmol/L Low 21.0-32.0 [facility] Chest 3 Viewon 02-01-2025 Chest 3 View [facility] Imaging Services [address] [facility] [place], [place] [id number] Chest 3 View MR#: [id number] Acct: [id number] Name: JERO GARZON Rep #: [id number] : 1955 M 69 From: Savannah kamara MD PCP: Dr. Chloe Cheema MD Status: ADM IN Study: Chest 3 View Date of Exam: 02/01/25 Exam# [id number] Ordering Dr: Sergo Perez MD PROCEDURE: CHEST 3 VIEW 02/01/2025 REASON FOR EXAM: POST PERMANENT ICD/PACEMAKER TECHNIQUE: CHEST 3 VIEW COMPARISON: 01/30/2025. FINDINGS: AICD is in good position. Interval appearance of mild bilateral basilar atelectatic pulmonary changes. Limited evaluation of the right lung base is limited secondary to superimposed patient's left upper extremity. There is no demonstrated pleural abnormality. Normal heart and pericardium. Normal mediastinum and whit. Normal visualized pulmonary arteries. Normal visualized aortic arch and descending thoracic aorta. Normal visualized thoracic spine. Normal visualized ribs, clavicles, and shoulders. There is no demonstrated abnormality of the visualized soft tissue structures of the upper abdomen. RAD/Chest 3 View IMPRESSION: Interval appearance of mild bilateral basilar atelectatic pulmonary changes. Reading Location: [place] [address] CC: Dr. Sergo Perez MD; Dr. Chloe Cheema MD Coding Spec: Signed Normal [facility] Chloride assayOrdered By: Tonny Lanier on 02-01-2025 Chloride [Moles/Vol] 104 mmol/L 98-108 [facility] Discharge Instructionon 01-17 Discharge Instruction [facility] Medical Records Department [address] [place] [address] Instructions for Home/Discharge Instructions 02/01/25 1348 MR#: [id number] Acct: [id number] Name: JERO GARZON Rep #: [id number] : 1955 69 From: Librado Bah DO PCP: Dr. Chloe Cheema MD Status:ADM IN Discharge Instructions DC O2, CPAP, BIPAP needs Home O2 Discharge instructions: No Dressing / Incision Discharge Activity: Return to Normal Activity May shower in (days): 2 Weight Bearing Status: Full weight bearing Additional Activity Instructions:: May shower or bathe on [day 3]. Do not scrub the incision or soak in the tub. Just wash with soap and let the water run over the incision. Gently pat dry with towel. Medications: Take your pain medication as directed. Refer to your discharge instruction sheet for a list of medications you are to take. Dressing / Incision Call your doctor if your incision/area has: Continuous Slow Oozing, Sudden Increased Bleeding, Increased Pain/ Swelling, Increased Redness, Foul Smelling Discharge and Swelling at the incision site Call your doctor if you observe: Fever of 101 or Higher, Shortness of breath, Dizziness, Fainting spells, Swelling in the ankles, Chest pain, Prolonged hiccupping and Increased palpitations (irregular heartbeat) Suture Line Care: Avoid Pulling/Pushing and Avoid Pinching/Bending Additional Dressing/Incision Instructions:: When dressing is removed, wash and dry incision. Keep covered with a light bandage if it is rubbing against your clothing. Do not cover the incision with an airtight bandage. Change the bandage daily. Do not remove steri strips. The strips will fall off on their own. Follow Up Care Please Follow Up With: Sergo Perez MD Test Results: Test results from this visit will be discussed in further detail at your follow-up appointment, if applicable. Discharge Plan Admission Admit Date/Time: 01/31/25 14:42 Primary Reason for Your Visit: Third-degree AV block Attending Provider: Librado Bah Primary Care Provider: Chloe Cheema Consulting Providers: Edwin Ellington; Elle Lazcano; Renard Lopez; Roberto Muro; Flores Glover; Ashwin Pulido; Tato Rincon; Sergo Perez; Ashley Joel; Kimberley Snyder; Karl Vo; Denise Haywood; Adam Crow; Josep Ashford; Timoteo Alcantar; Hussein Gramajo EPITAXIAL REACTOR OPERATOR; Dyana Alvarez; Willem Dsouza; Ashley Jacobs; Davy Lanier Discharge Orders/Prescriptions Prescriptions: Continued tamsulosin 0.4 mg capsule 0.4 mg PO DAILY testosterone 20.25 mg/1.25 gram (1.62 %) gel in metered-dose pump 4 pump transdermal DAILY Patient Comments: APPLY 4 PUMPS DAILY albuterol sulfate 1 INHALER inhaler 1 - 2 puff INHALATION Q6H PRN (Reason: Asthma) esomeprazole magnesium 40 mg capsule,delayed release(DR/EC) 40 mg PO BID Patient Comments: PT ONLY TAKES ONCE A DAY losartan 100 mg tablet 100 mg PO DAILY potassium chloride 10 mEq tablet extended release 20 meq PO DAILY finasteride 5 mg tablet 5 mg PO DAILY multivitamin [Daily Multi-Vitamin] Tablet 1 tab PO DAILY oxycodone-acetaminophen 5-325 mg tablet 1 tab PO DAILY PRN (Reason: pain) atomoxetine 40 mg capsule 100 mg PO DAILY ciprofloxacin HCl 500 mg tablet 500 mg PO BID amlodipine 5 mg tablet 10 mg PO DAILY Qty: 90 3RF Wegovy 0.25 mg/0.5 mL pen injector 0.25 mg subcut QWEEK Qty: 2 0RF Rx Instructions: administer weeks 1 through 4 of therapy Referrals / Follow Up: Sergo Perez MD [Med Staff - Active Staff] - See Referral Note (As scheduled) Chloe Cheema MD [Primary Care Provider] - Disposition Disposition (needs filled in before D/C Order can be placed): Home, Self Care 02/01/25 3065 Librado Bah DO CC: EPITAXIAL REACTOR OPERATOR-C Hussein Gramajo; Dr. Renard Lopez MD; Dr. Elle Lazcano MD; Dr. Edwin Ellington MD; Dr. Davy Lanier DO; Dr. Flores Glover MD; Dr. Roberto Muro MD; Dr. Ashwin Pulido MD; Dr. Tato Rincon MD; Dr. Sergo Perez MD; Dr. Ashley Joel DO; Dr. Ashley Jacobs DO; Dr. Kimberley Snyder MD; Dr. Karl Vo MD; Dr. Denise Haywood MD; Dr. Timoteo Alcantar MD; Dr. Adam Crow MD; Dr. Josep Ashford MD; Dr. Chloe Cheema MD; ELO Wall; ELO Cervantes Signed Normal [facility] Discharge Instruction [facility] Medical Records Department [address] [place] [address] Instructions for Home/Discharge Instructions 02/01/25 0946 MR#: [id number] Acct: [id number] Name: JERO GARZON Rep #: [id number] : 1955 69 From: Sergo Perez MD PCP: Dr. Chloe Cheema MD Status:ADM IN Discharge Instructions DC O2, CPAP, BIPAP needs Home O2 Discharge instructions: No Dressing / Incision Discharge Activity: May Not Drive May shower in (days): 2 Additional Activity Instructions:: May shower or bathe on [day 3]. Do not scrub the incision or soak in the tub. Just wash with soap and let the water run over the incision. Gently pat dry with towel. Medications: Take your pain medication as directed. Refer to your discharge instruction sheet for a list of medications you are to take. Dressing / Incision Call your doctor if your incision/area has: Continuous Slow Oozing, Sudden Increased Bleeding, Increased Pain/ Swelling, Increased Redness, Foul Smelling Discharge and Swelling at the incision site Call your doctor if you observe: Fever of 101 or Higher, Shortness of breath, Dizziness, Fainting spells, Swelling in the ankles, Chest pain, Prolonged hiccupping and Increased palpitations (irregular heartbeat) Suture Line Care: Avoid Pulling/Pushing and Avoid Pinching/Bending Remove Dressing in: do not remove dressing Additional Dressing/Incision Instructions:: When dressing is removed, wash and dry incision. Keep covered with a light bandage if it is rubbing against your clothing. Do not cover the incision with an airtight bandage. Change the bandage daily. Do not remove steri strips. The strips will fall off on their own. Follow Up Care Please Follow Up With: Sergo Perez MD When: Pacer follow-up on February 12. The pacemaker clinic will call you for the exact time. Test Results: Test results from this visit will be discussed in further detail at your follow-up appointment, if applicable. Discharge Plan Admission Admit Date/Time: 01/31/25 14:42 Attending Provider: Libardo Bah Primary Care Provider: Chloe Cheema Consulting Providers: Edwin Ellington; Elle Lazcano; Renard Lopez; Roberto Muro; Flores Glover; Ashwin Pulido; Tato Rincon; Sergo Perez; Ashley Joel; Kimberley Snyder; Karl Vo; Denise Haywood; Adam Crow; Josep Ashford; Timoteo Alcantar; Hussein Gramajo NP; Dyana Alvarez; Willem sDouza; Ashley Jacobs; Davy Lanier Discharge Orders/Prescriptions Prescriptions: No Action tamsulosin 0.4 mg capsule 0.4 mg PO DAILY testosterone 20.25 mg/1.25 gram (1.62 %) gel in metered-dose pump 4 pump transdermal DAILY Patient Comments: APPLY 4 PUMPS DAILY albuterol sulfate 1 INHALER inhaler 1 - 2 puff INHALATION Q6H PRN (Reason: Asthma) esomeprazole magnesium 40 mg capsule,delayed release(DR/EC) 40 mg PO BID Patient Comments: PT ONLY TAKES ONCE A DAY losartan 100 mg tablet 100 mg PO DAILY potassium chloride 10 mEq tablet extended release 20 meq PO DAILY finasteride 5 mg tablet 5 mg PO DAILY multivitamin [Daily Multi-Vitamin] Tablet 1 tab PO DAILY oxycodone-acetaminophen 5-325 mg tablet 1 tab PO DAILY PRN (Reason: pain) atomoxetine 40 mg capsule 100 mg PO DAILY ciprofloxacin HCl 500 mg tablet 500 mg PO BID amlodipine 5 mg tablet 10 mg PO DAILY Qty: 90 3RF Wegovy 0.25 mg/0.5 mL pen injector 0.25 mg subcut QWEEK Qty: 2 0RF Rx Instructions: administer weeks 1 through 4 of therapy Referrals / Follow Up: Chloe Cheema MD [Primary Care Provider] - 02/01/25 0994 Sergo Perez MD CC: EPITAXIAL REACTOR OPERATOR-Harper Gramajo; Dr. Renard Lopez MD; Dr. Elle Lazcano MD; Dr. Edwin Ellington MD; Dr. Davy Lanier DO; Dr. Flores Glover MD; Dr. Roberto Muro MD; Dr. Ashwin Pulido MD; Dr. Tato Rincon MD; Dr. Sergo Perez MD; Dr. Ashley Joel DO; Dr. Ashley Jacobs DO; Dr. Kimberley Snyder MD; Dr. Karl Vo MD; Dr. Denise Haywood MD; Dr. Timoteo Alcantar MD; Dr. Adam Crow MD; Dr. Josep Ashford MD; Dr. Chloe Cheema MD; ELO Wall; ELO Cervantes Signed Normal [facility] Erythrocyte distribution wid th ratioOrdered By: Davy Lanier on 02-01-2025 Erythrocyte distribution width (RBC) [Ratio] 12.9 % 11.6-14.6 [facility] Erythrocyte distribution wid th standard deviationOrdered By: Davy Lanier on 02-01-2025 Erythrocyte distribution width (RBC) [Ratio] 38.8 fl 35.1-43.9 [facility] Glomerular filtration rate ( GFR) estimation/1.73 sq m using serum, plasma, or whole bOrdered By: Davy Lanier on 02-01-2025 GFR/1.73 sq M.predicted among non-blacks MDRD (S/P/Bld) [Vol rate/Area] 95 mL/min/{1.73_m2} >60 [facility] Comment on above: mL/min/1.73m2 CKD-EP I Creatinine Equation (2020) Hematocrit Auto (Bld) [Volum e fraction]Ordered By: Davy Lanier on 02-01-2025 Hematocrit (Bld) [Volume fraction] 42.7 % 40-54 [facility] Hemoglobin measurementOrdere d By: Davy Lanier on 02-01-2025 Hemoglobin (Bld) [Mass/Vol] 14.9 g/dL 13.0-16.5 [facility] MCV (mean corpuscular volume ) determinationOrdered By: Davy Lanier 02-01-2025 MCV (RBC) [Entitic vol] 83.6 fL 80-94 [facility] Mean corpuscular hemoglobin (MCH) determinationOrdered By: Davy Lanier on 02-01-2025 MCH (RBC) [Entitic mass] 29.2 pg 27.0-32.0 [facility] Mean corpuscular hemoglobin concentration (MCHC) determinationOrdered By: Davy Lanier on 02-01-2025 MCHC (RBC) [Mass/Vol] 34.9 g/dL 32-36 [facility] Mean platelet volume determi nationOrdered By: Davy Lanier on 02-01-2025 Platelet mean volume (Bld) [Entitic vol] 11.2 fL 6.2-12.0 [facility] Phosphoruson 02-01-2025 Phosphate [Mass/Vol] 3.0 mg/dL Normal 2.7-4.5 [facility] Comment on above: Performed By: #### L 100.0100, L500.2500 #### [facility] [address] [place] [address], [id number] Platelet countOrdered By: Tonny Lanier on 02-01-2025 Platelets (Bld) [#/Vol] 145 10*3/uL Low 150-450 [facility] Potassium measurement (mass/ volume)Ordered By: Davy Lanier on 02-01-2025 Potassium (Unsp spec) [Mass/Vol] 3.5 mmol/L 3.3-5.1 [facility] Comment on above: Hemolysis present, R esults could be affected. RBC Auto (Bld) [#/Vol]Ordere d By: Davy Lanier on 02-01-2025 RBC (Bld) [#/Vol] 5.11 10*6/uL 4.6-6.2 [facility] Serum creatinine measurement (mass/volume)Ordered By: Davy Lanier on 02-01-2025 Creatinine [Mass/Vol] 0.87 mg/dL 0.70-1.20 [facility] Serum glucose measurement (m ass/volume)Ordered By: Davy Lanier on 02-01-2025 Glucose [Mass/Vol] 109 mg/dL High 70-99 [facility] Serum or plasma calcium peterson urement (mass/volume)Ordered By: Davy Lanier on 02-01-2025 Calcium [Mass/Vol] 8.9 mg/dL 7.6-11.0 [facility] Serum or plasma urea nitroge n measurement (mass/volume)Ordered By: Davy Lanier on 02-01-2025 Urea nitrogen [Mass/Vol] 11 mg/dL 4-19 [facility] Sodium levelOrdered By: Stew shahid Yolande on 02-01-2025 Sodium [Moles/Vol] 138 mmol/L 133-145 [facility] White blood cell (WBC) count Ordered By: Davy Lanier on 02-01-2025 WBC (Bld) [#/Vol] 5.8 10*3/uL 4.4-11.0 [facility] Absolute lymphocyte countOrd ered By: Ashley Claros on 01-31-2025 Lymphocytes Auto (Unsp spec) [#/Vol] 0.92 10*3/uL 0.83-4.51 [facility] Absolute neutrophil countOrd ered By: Ashley Claros on 01-31-2025 Neutrophils (Bld) [#/Vol] 2.5 10*3/uL 2.0-7.7 [facility] Alcohol, Blood (Medical)-Ser umon 01-31-2025 SERUM ETOH < 10.1 Normal <=10.0 [facility] Comment on above: Result Comment: This test is for medical purposes only. The legal definition of intoxication varies according to local law. Performed By: #### L 100.0100, L500.2500 #### [facility] [address] [place] [address], [phone] Automated lymphocyte count a s percentage of total leukocytesOrdered By: Ashley Claros on 01-31-2025 Lymphocytes/100 WBC Auto (Unsp spec) 23.3 % 19-41 [facility] Basophil percentageOrdered B y: Ashley Claros on 01-31-2025 Basophils/100 WBC (Bld) 0.5 % 0-1 [facility] Bilirubin, totalOrdered By: Ashley Claros on 01-31-2025 Bilirubin [Mass/Vol] 0.54 mg/dL 0.00-1.30 [facility] Comment on above: Performed By: #### L 100.0100, L500.2500 #### [facility] [address] [place], [address] CBC W/Diff, Automatedon 08-1 5-2024 Absolute Lymph 0.92 X10 3/uL Normal 0.83-4.51 [facility] Comment on above: Performed By: #### L 499.0042 #### [facility] [address] [place], [address] Absolute Neut 2.5 X10 3/uL Normal 2.0-7.7 [facility] Comment on above: Performed By: #### L 499.0042 #### [facility] [address] [place], [address] Basophils/100 WBC (Bld) 0.5 % Normal 0-1 [facility] Comment on above: Performed By: #### L 499.0042 #### [facility] [address] [place], [address] Eosinophils/100 WBC (Bld) 1.3 % Normal 0-5 [facility] Comment on above: Performed By: #### L 499.0042 #### [facility] [address] [place], [address] Erythrocyte distribution width (RBC) [Ratio] 12.8 % Normal 11.6-14.6 [facility] Comment on above: Performed By: #### L 499.0042 #### [facility] [address] [place], [address] Hematocrit (Bld) [Volume fraction] 39.7 % Low 40-54 [facility] Comment on above: Performed By: #### L 499.0042 #### [facility] [address] [place], [address] Hemoglobin (Bld) [Mass/Vol] 13.9 g/dL Normal 13.0-16.5 [facility] Comment on above: Performed By: #### L 499.0042 #### [facility] [address] [place], [address] IG% 0.300 Normal 0.0-0.9 [facility] Comment on above: Result Comment: IG% - Immature Granulocytes (promyelocytes, myelocytes and metamyelocytes) > 1% indicates that a LEFT SHIFT is Present. Performed By: #### L 499.0042 #### [facility] [address] [place], [address] Lymphocytes/100 WBC (Bld) 23.3 % Normal 19-41 [facility] Comment on above: Performed By: #### L 499.0042 #### [facility] [address] [place], [address] MCH (RBC) [Entitic mass] 29.1 pg Normal 27.0-32.0 [facility] Comment on above: Performed By: #### L 499.0042 #### [facility] [address] [place], [address] MCHC (RBC) [Mass/Vol] 35.0 g/dL Normal 32-36 [facility] Comment on above: Performed By: #### L 499.0042 #### [facility] [address] [place], [address] MCV (RBC) [Entitic vol] 83.1 fL Normal 80-94 [facility] Comment on above: Performed By: #### L 499.0042 #### [facility] [address] [place], [address] Monocytes/100 WBC (Bld) 10.4 % High 0-10 [facility] Comment on above: Performed By: #### L 499.0042 #### [facility] [address] [place], [address] Neutrophils/100 WBC (Bld) 64.2 % Normal 47-70 [facility] Comment on above: Performed By: #### L 499.0042 #### [facility] [address] [place], [address] Nucleated RBC (Bld) [#/Vol] 0 10*3/uL Normal 0-5 [facility] Comment on above: Performed By: #### L 499.0042 #### [facility] [address] [place], [address] Platelet mean volume (Bld) [Entitic vol] 11.1 fL Normal 6.2-12.0 [facility] Comment on above: Performed By: #### L 499.0042 #### [facility] [address] [place], [address] Platelets (Bld) [#/Vol] 141 10*3/uL Low 150-450 [facility] Comment on above: Performed By: #### L 499.0042 #### [facility] [address] [place], [address] RBC (Bld) [#/Vol] 4.78 10*6/uL Normal 4.6-6.2 [facility] Comment on above: Performed By: #### L 499.0042 #### [facility] [address] [place], [address] RDW SD 38.5 fl Normal 35.1-43.9 [facility] Comment on above: Performed By: #### L 499.0042 #### [facility] [address] [place], [address] WBC (Bld) [#/Vol] 4.0 10*3/uL Low 4.4-11.0 [facility] Comment on above: Performed By: #### L 499.0042 #### [facility] [address] [place], [address] Cardiac Cath Diagn[employer]icon Cardiac Cath Diagnostic [facility] Imaging Services [address] [place] [address] Cardiac Cath Diagnostic MR#: [id number] Acct: [id number] Name: JERO GARZON Rep #: [id number] : 1955 69 From: Sergo Perez MD PCP: Dr. Chloe Cehema MD Status:ADM FRANNY Patient Name: JERO GARZON Study Date: 01/31/2025 Performing: Sergo Perez MD Ht: 76 inches 193.04 cm : 1955 Wt: 315.7 lbs 143.2 kg Age: 69 Gender: male BSA: 2.69 PROCEDURE(S) PERFORMED DC01-(00065)LHC/COR/LV CLINICAL PROFILE AND INDICATIONS Indications: Cardiac Arrythmia Heart Failure: None Stress/Imaging Date: 12/01/24Stress Test with SPECT MPI: Negative CAD Presentations: Symptom unlikely to be ischemic. CONCLUSIONS Dominant vessel right coronary artery with moderate disease and previously placed into the left anterior descending artery which is noted to be patent. RECOMMENDATIONS Medical therapy DESCRIPTION OF PROCEDURE The patient arrived to the procedure lab. The risks and benefits of the procedure as well as a full description of our services here and current unavailability of surgical backup were fully explained to the patient and/or their significant other prior to the catheterization. The Timeout was completed, verifying the correct patient and procedure. The patient's procedural site was prepped and draped in the usual fashion. Local anesthetic was given subcutaneously to right radial region with Lidocaine 2%. Using a modified Seldinger technique, arterial access was obtained via the right radial artery, a 6Fr sheath was inserted. Right Coronary Artery selective angiography was then performed in multiple views using a 5 Fr. 4.0 [place] catheter. Left Coronary Artery selective angiography was performed in multiple views using a 5 Fr. 4.0 [place] catheter.The arterial sheath was pulled and a TR Band was applied for hemostasis CORONARY ANGIOGRAPHY DOMINANCE: Right Dominant LEFT HEART ASSESSMENT Left Ventricular Ejection Fraction: by Echo 60 % Normal Left Ventricular systolic function LEFT MAIN: Angiographically normal LEFT ANTERIOR DESCENDING ARTERY: Previously placed stent in the left anterior descending artery is noted to be patent. There is a jailed diagonal vessel with ostial 70 to 80% stenosis CIRCUMFLEX ARTERY: Nondominant vessel with moderate 50% proximal stenosis and distal mild diffuse disease RIGHT CORONARY ARTERY: Dominant right coronary artery with moderate 60% stenosis and mild diffuse disease noted. COMPLICATIONS PROCEDURE MEDICATIONS Versed 1 mg IV Fentanyl 50 mcg IV Fentanyl 50 mcg IV Aspirin (325mg) 1 Tabs PO @ 01/31/2025 10:53:55 Heparin given IA 01/31/2025 11:10:51 SUMMARY OF HEMODYNAMIC DATA Time AIR REST ECG 10:56:31 AO 126/74 (96) SA 11:16:55 Signed By Sergo Perez MD On 01/31/2025 11:42:20 Sergo Perez MD 01/31/25 1142 Date Sergo Barronigner Signature: Date (if indicated) CC: Dr. Davy Lanier DO; Dr. Sergo Perez MD; Dr. Chloe Cheema MD Date Dictated: 01/31/25 1110 Date Transcribed: 01/31/25 1142 Coding Spec: CO Signed Normal [facility] Cardiac catheterization repo rtOrdered By: Sergo Perez on 01-31-2025 Cardiac catheterization study [facility] Imaging Services [address] [place] [address] Cardiac Cath Diagnostic MR#: [id number] Acct: [id number] Name: DURANJERO Rep #:[id number] : 1955 69 From: Sergo Perez MD PCP: Dr. Chloe Cheema MD Status:ADM I NO Patient Name: JERO GARZON Study Date: 01/31/2025 Performing: Sergo Perez MD Ht: 76 inches 193.04 cm : 1955 Wt: 315.7 lbs 143.2 kg Age: 69 Gender: male BSA: 2.69 PROCEDURE(S) PERFORMED DC01-(64022)LHC/COR/LV CLINICAL PROFILE AND INDICATIONS Indications: Cardiac Arrythmia Heart Failure: None Stress/Imaging Date: 12/01/24Stress Test with SPECT MPI: Negative CAD Presentations: Symptom unlikely to be ischemic. CONCLUSIONS Dominant vessel right coronary artery with moderate disease and previously placed into the left anterior descending artery which is noted to be patent. RECOMMENDATIONS Medical therapy DESCRIPTION OF PROCEDURE The patient arrived to the procedure lab. The risks and benefits of the procedure as well as a full description of our services here and current unavailability of surgical backup were fully explained to the patient and/or their significant other prior to the catheterization. The Timeout was completed, verifying the correct patient and procedure. The patient's procedural site was prepped and draped in the usual fashion. Local anesthetic was given subcutaneously to right radial region with Lidocaine 2%. Using a modified Seldinger technique, arterial access was obtained via the right radial artery, a 6Fr sheath was inserted. Right Coronary Artery selective angiography was then performed in multiple views using a 5 Fr. 4.0 [place] catheter. Left Coronary Artery selective angiography was performed in multiple views using a 5 Fr. 4.0 [place] catheter.The arterial sheath was pulled and a TR Band was applied for hemostasis CORONARY ANGIOGRAPHY DOMINANCE: Right Dominant LEFT HEART ASSESSMENT Left Ventricular Ejection Fraction: by Echo 60 % Normal Left Ventricular systolic function LEFT MAIN: Angiographically normal LEFT ANTERIOR DESCENDING ARTERY: Previously placed stent in the left anterior descending artery is noted to be patent. There is a jailed diagonal vessel with ostial 70 to 80% stenosis CIRCUMFLEX ARTERY: Nondominant vessel with moderate 50% proximal stenosis and distal mild diffuse disease RIGHT CORONARY ARTERY: Dominant right coronary artery with moderate 60% stenosis and mild diffuse disease noted. COMPLICATIONS PROCEDURE MEDICATIONS Versed 1 mg IV Fentanyl 50 mcg IV Fentanyl 50 mcg IV Aspirin (325mg) 1 Tabs PO @ 01/31/2025 10:53:55 Heparin given IA 01/31/2025 11:10:51 SUMMARY OF HEMODYNAMIC DATA Time AIR REST ECG 10:56:31 AO 126/74 (96) SA 11:16:55 Signed By Sergo Perez MD On 01/31/2025 11:42:20 Sergo Perez MD 01/31/25 1142 Date _ Sergo Perez MD Cosigner Signature: Date (if indicated) CC: Dr. Davy Lanier DO; Dr. Sergo Perez MD; Dr. Chloe Cheema MD ~ Date Dictated: 01/31/25 1110 Date Transcribed: 01/31/25 1142 Coding Spec: CO Signed [facility] Work Phone: Comprehensive Metabolic Prof richelle 01-31-2025 ALK PHOS 57 U/L Normal 40-129 [facility] Comment on above: Performed By: #### L 100.0100, L500.2500 #### [facility] [address] [place], [address] BUN/CRE 14.8 RATIO Normal 10-20 [facility] Comment on above: Performed By: #### L 100.0100, L500.2500 #### [facility] [address] [place], [address] Calcium [Mass/Vol] 8.8 mg/dL Normal 7.6-11.0 [facility] Comment on above: Performed By: #### L 100.0100, L500.2500 #### [facility] [address] [place], [address] Chloride [Moles/Vol] 107 mmol/L Normal 98-108 [facility] Comment on above: Performed By: #### L 100.0100, L500.2500 #### [facility] [address] [place], [address] CO2 [Moles/Vol] 21.9 mmol/L Normal 21.0-32.0 [facility] Comment on above: Performed By: #### L 100.0100, L500.2500 #### [facility] [address] [place], [address] Creatinine [Mass/Vol] 0.96 mg/dL Normal 0.70-1.20 [facility] Comment on above: Performed By: #### L 100.0100, L500.2500 #### [facility] [address] [place], [address] ECRCL 115.50 ml/min Normal 50-250 [facility] Comment on above: Performed By: #### L 100.0100, L500.2500 #### [facility] [address] [place], [address] GAP 11 Normal 5-15 [facility] Comment on above: Performed By: #### L 100.0100, L500.2500 #### [facility] [address] [place], [address] GFR/1.73 sq M.predicted among non-blacks MDRD (S/P/Bld) [Vol rate/Area] 87 mL/min/{1.73_m2} Normal >60 [facility] Comment on above: Result Comment: mL/m in/1.73m2 CKD-EPI Creatinine Equation (2020) Performed By: #### L 100.0100, L500.2500 #### [facility] [address] [place], [address] Glucose [Mass/Vol] 108 mg/dL High 70-99 [facility] Comment on above: Performed By: #### L 100.0100, L500.2500 #### [facility] [address] [place], [address] Potassium [Moles/Vol] 3.7 mmol/L Normal 3.3-5.1 [facility] Comment on above: Performed By: #### L 100.0100, L500.2500 #### [facility] [address] [place], [address] Sodium [Moles/Vol] 140 mmol/L Normal 133-145 [facility] Comment on above: Performed By: #### L 100.0100, L500.2500 #### [facility] [address] [place], [address] T PROT 5.9 g/dL Normal 5.9-8.4 [facility] Comment on above: Performed By: #### L 100.0100, L500.2500 #### [facility] [address] [place], [address] Urea nitrogen [Mass/Vol] 14 mg/dL Normal 4-19 [facility] Comment on above: Performed By: #### L 100.0100, L500.2500 #### [facility] [address] [place], [address] Comprehensive Metabolic Prof ilOrdered By: Ashley Claros on 01-31-2025 AST [Catalytic activity/Vol] 19 U/L <38 [facility] Comment on above: Performed By: #### L 100.0100, L500.2500 #### [facility] [address] [place], [address] Consultation - Cardiologyon 01-31-2025 Consultation - Cardiology [facility] Medical Records Department [address] [place] [address] Consultation - Cardiology 01/31/25 0807 MR#: [id number] Acct: [id number] Name: JERO GARZON Rep #: [id number] : 1955 69 From: Sergo Perez MD PCP: Dr. Chloe Cheema MD Status:ADM FRANNY Location: [address] Assessment Plan Assessment/Plan (1) AV block, 3rd degree: PLAN: Patient presents and is noted to have intermittent high-grade AV block. My suspicion is that the patient has underlying sick sinus syndrome due to the first-degree AV block noted before as well as the left anterior fascicular block. With his symptoms I would recommend that we proceed with a permanent pacemaker implantation. Risk benefits alternatives have been explained to him he understands and agrees to proceed. (2) Syncope: QUALIFIERS: Syncope type: unspecified Qualified Code(s): R55 - Syncope and collapse PLAN: He presents with recurrent syncope which I suspect is secondary to the high-grade intermittent AV block. (3) Paroxysmal atrial flutter: PLAN: Patient has had a previous history of paroxysmal atrial flutter and fibrillation does not appear that he has had any recent episodes Holter monitor previously did not demonstrate any episodes of atrial fibrillation flutter and has not been on any rate limiting medications. At this time I do not think he needs to be anticoagulated. (4) Fatigue: PLAN: He does have a history of fatigue but he also has sleep apnea and with his recent tick bite it raises the question as to whether this may be related to Lyme disease. I am concerned about his recurrent syncope and his previous history and so we will obtain Lyme titers acutely but I do not think that this completely explains his fatigue. My suspicion is that it may be related to intermittent heart block and his first-degree AV block. (5) Coronary artery disease: PLAN: He does have a history of coronary artery disease status post angioplasty and stenting of the left anterior descending artery. Recent stress test did not demonstrate any evidence of ischemia. No ischemic workup will be pursued during this visit. HPI Consult Data Date of Consult: 01/31/25 HPI Narrative HPI Narrative: JERO GARZON, is a 69 M who presents to the emergency room with complaints of presyncope and fatigue which have been going on for the last 2 to 3 weeks or so. He does have a history of previous paroxysmal atrial fibrillation status post cardioversion in 2022 and coronary artery disease status post remote stenting of his left anterior descending artery. His last cardiac catheterization was in 2018 and at that time demonstrated a patent stent in the left anterior descending artery. He says that he has been otherwise well and has have a history of hypertension obstructive sleep apnea being treated with his CPAP device. He had presented to the emergency room in November with chest discomfort his cardiac enzymes were negative and he underwent a myocardial perfusion stress test which was noted to be normal. He also had an echocardiogram which demonstrated an ejection fraction of 65%. Natruretic peptide level was normal at that time. He thinks that he may have been bitten by a tick about a week ago. His previous EKG had demonstrated sinus rhythm with a first-degree AV block and he does have a previous history of paroxysmal atrial fibrillation. He has had at least 1 syncopal episode but no head injury. He was admitted to the telemetry care unit and had episodes of high-grade AV block. Cardiology was called for further evaluation and management. His EKG did demonstrates sinus rhythm with a first-degree AV block and then periods of complete AV block with P waves and no conduction. He has had no definitive fever but he has had fatigue no necessarily myalgias. His white count has been normal. He has never been checked for Lyme disease though he thinks he may have had a tick bite he did not see any bull's-eye phenomenon. He has not been on any anticoagulation or negative rate chronotropic agents. [facility] Medical History Prostate infection History of cardioversion First degree heart block [...] disease) Essential hypertension Atherosclerotic heart disease of [place] (more content not included)... Normal [facility] D-Dimer Quantitative (DVT/PE )on 01-31-2025 D-DIMER QUANT 0.27 FEU/ug/m Normal 0.27-0.49 [facility] Comment on above: Result Comment: NORM AL D-Dimer level (<0.50) indicates no DVT or PE. Performed By: #### L 499.0042 #### [facility] [address] [place], [address] Echocardiogram study reportO rdered By: Sergo Perez on 01-31-2025 Study report [facility] Services [address] [place] [address] Echo Complete 01/31/25 0806 MR#: [id number] Acct: [id number] Name: JERO GARZON Rep #:[id number] : 1955 69 From: Sergo Song Attending Dr: Dr. Davy Lanier, DO Status: ADM FRANNY Ordering Dr: Ashley Jacobs DO Date: 01/30/25 Location: [facility] Sex: M C Admitted: 01/30/25 Reason For Study Reason For Study: SYNCOPE/NEAR SYNCOPE Procedure This was a 2D Doppler, Color Flow transthoracic echocardiogram. The study was technically difficult. Exam performed portable in patient room. Left Ventricle Normal LV size. Moderate concentric left ventricular hypertrophy. Left ventricular systolic function is normal. The left ventricular ejection fraction is 60 %. No regional wall motion abnormalities noted. Right Ventricle Normal RV size. Normal systolic function. Atria The left atrium is moderately enlarged. Normal right atrium. Mitral Valve Normal mitral valve. Tricuspid Valve Normal tricuspid valve. Aortic Valve Trisinus/trileaflet aortic valve. Pulmonic Valve Normal pulmonic valve. Great Vessels Mildly dilated aortic root. The pulmonary artery is normal size. Inferior vena cava collapse with respiration. Pericardium/Pleural No pericardial effusion. MMode/2D Measurements & Calculations LVIDd: 5.5 cm IVSd: 1.5 cm Ao root diam: 4.1 cm LVIDs: 3.4 cm LVPWd: 1.3 cm RVDd: 4.3 cm FS: 37.8 % LAV(MOD-bp): 118.6 ml LVAd ap4: 34.6 cm2 LVAd ap2: 31.8 cm2 LAV(MOD-bp) Indexed: 43.7 ml/m2 LVLd ap4: 8.5 cm LVLd ap2: 9.1 cm LAV(MOD-sp2): 115.8 ml EDV(MOD-sp4): 115.5 ml EDV(MOD-sp2): 95.1 ml LAV(MOD-sp4): 115.1 ml EDV(sp4-el): 119.5 ml EDV(sp2-el): 94.3 ml LVAs ap4: 20.9 cm2 LVAs ap2: 18.4 cm2 LVLs ap4: 7.1 cm LVLs ap2: 7.6 cm ESV(MOD-sp4): 51.0 ml ESV(MOD-sp2): 38.9 ml ESV(sp4-el): 51.9 ml ESV(sp2-el): 37.7 ml EF(MOD-sp4): 55.9 % EF(MOD-sp2): 59.1 % EF(sp4-el): 56.6 % SV(MOD-sp4): 64.5 ml SV(MOD-sp2): 56.2 ml SV(sp4-el): 67.7 ml SI(MOD-sp4): 23.8 ml/m2 SI(MOD-sp2): 20.7 ml/m2 LA A4 area: 28.9 cm2 LA dimension(2D): 5.9 cm TAPSE: 3.0 cm Time Measurements MV dec time: 0.19 sec Doppler Measurements & Calculations MV E max yasmeen: 82.5 cm/sec Lat Peak E' Yasmeen: 12.2 cm/sec Med Peak E' Yasmeen: 7.6 cm/sec MV A max yasmeen: 67.3 cm/sec E/E' lat: 6.8 E/E' med: 10.8 MV E/A: 1.2 Ao V2 max: 94.5 cm/sec LV V1 max: 87.4 cm/sec PA V2 max: 111.4 cm/sec Ao max P.6 mmHg LV V1 max P.1 mmHg PA V2 mean: 76.4 cm/sec Ao V2 mean: 66.9 cm/sec LV V1 mean P.8 mmHg Ao mean P.0 mmHg LV V1 mean: 63.5 cm/sec Ao V2 VTI: 21.5 cm LV V1 VTI: 19.6 cm AV (velocity ratio): 0.91 ECHO/Echo Complete Interpretation Summary Normal LV size. Left ventricular systolic function is normal. Moderate concentric left ventricular hypertrophy. Mildly dilated aortic root. The left ventricular ejection fraction is 60 %. Ordering Physician: Ashley Jacobs Referring Physician: Chloe Cheema Performed By: Imelda Lopez RDCS, RVT 01/31/25 1208 Date _ Sergo Perez MD CC: Dr. Davy Lanier, DO; Dr. Ashley Jacobs, DO; Dr. Chloe Cheema MD~ Date Dictated: 01/31/25805 Date Transcribed: 01/31/25 1208 Coding Spec: Signed [facility] Work Phone: [phone] Eosinophil percentageOrdered By: Ashley Claros on 01-31-2025 Eosinophils/100 WBC (Bld) 1.3 % 0-5 [facility] Folate [Mass/volume] in Seru m or PlasmaOrdered By: Ashley Claros on 01-31-2025 Folate [Mass/Vol] 12.90 ng/mL 4.60-34.80 [facility] Comment on above: Hemolysis, Results w ill be affected, Requires Recollection. Folates,Serum (Folic Acid)on 01-31-2025 FOLATES,SERUM 12.90 ng/mL Normal 4.60-34.80 [facility] Comment on above: Result Comment: Hemo lysis, Results will be affected, Requires Recollection. Performed By: #### L 499.0042 #### [facility] [address] [place], [place], [id number] Hemoglobin A1con 01-31-2025 HbA1c (Bld) [Mass fraction] 5.4 % Normal <=5.6 [facility] Comment on above: Result Comment: Norm al < 5.7 % Prediabetic 5.7 - 6.4 % Diabetic >or= 6.5 % Please note range changes. Performed By: #### L 100.0100, L500.2500 #### [facility] [address] [place], [address] Hemoglobin A1c percentageOrd ered By: Ashley Claros on 01-31-2025 HbA1c (Bld) [Mass fraction] 5.4 % <5.7 [facility] Comment on above: Normal < 5.7 % Predi abetic 5.7 - 6.4 % Diabetic >or= 6.5 % Please note range changes. Immature granulocytes/100 WB C Auto (Bld)Ordered By: Ashley Gabrielenzo on 01-31-2025 Immature granulocytes/100 WBC (Bld) 0.300 % 0.0-0.9 [facility] Comment on above: IG% - Immature Granu locytes (promyelocytes, myelocytes and metamyelocytes) > 1% indicates that a LEFT SHIFT is Present. Monocyte percentageOrdered B y: Ashley Claros on 01-31-2025 Monocytes/100 WBC (Bld) 10.4 % High 0-10 [facility] Neutrophil percentageOrdered By: Ashley Claros on 01-31-2025 Neutrophils/100 WBC (Bld) 64.2 % 47-70 [facility] No Panel InformationOrdered By: Adam Crow on 01-31-2025 Lyme Disease IgG Ab 30 kDa Band Absent . [facility] Lyme Disease IgG Ab 93 kDa Band Absent . [facility] Lyme Disease IgG West Blot Interp Negative Negative [facility] Lyme Disease IgM Ab (Western Blot) Negative Negative [facility] Comment on above: Please Note: Lyme im munoblot alone is not recommended forthe diagnosis of Lyme disease. Current guidelines recommendthe use of a two-tiered approach to Lyme serology testingto improve the sensitivity and specificity of testing.[facility] offers test code 254873 Lyme Disease Serology withReflex to aid in the diagnosis of Lyme Disease. Lyme Disease Western Blot Comments Comment . [facility] Comment on above: Per CDC criteria, th e Lyme IgG Immunoblot is interpreted aspositive if IgG-class antibodies are detected to 5 or moreB. burgdorferi proteins, and the Lyme IgM Immunoblot isinterpreted as positive if IgM-class antibodies aredetected to 2 or more B. burgdorferi proteins. Immunoblotpatterns not meeting these criteria should not beinterpreted as positive. Epitopes from certain B.burgdorferi proteins (e.g., p41) are conserved across otherbacteria, which may lead to the detection of IgM-and/or IgGclass antibodies on the Lyme disease immunoblots inpatients without Lyme disease. Immunoblot should only beordered on specimens that are positive or equivocal by anFDA-licensed Lyme disease antibody screening test (e.g.,EIA). Results of the Lyme IgM immunoblot should not beconsidered in patients with 30 or more days of symptoms.Performed at: [address] [id number] Director: Teresa Olivia MD, Phone: [phone] Nucleated red blood cell per centageOrdered By: Ashley Claros on 01-31-2025 Nucleated RBC/100 WBC (Bld) [Ratio] 0 % 0-5 [facility] Pacemaker reportOrdered By: Sergo Perez on 01-31-2025 Study report [facility] Imaging Services [address] [place] [address] TXT:Device Implant / Explant MR#: [id number] Acct: [id number] Name: DURANJERO ARIAS Rep #:[id number] : 1955 69 From: Sergo Perez MD PCP: Dr. Chloe Cheema MD Status:ADM I NO Patient: JERO GARZON JOSELUIS Study Date: 01/31/2025 Performing: Sergo Perez MD : 1955 Age: 69 Gender: male PROCEDURES PERFORMED DC02-(54414)C/COR LP04-(50981)INITIAL PACER INSERT+DUAL LEADS INDICATIONS Other second degree AV block. 2:1 heart block PROCEDURE DETAILS The patient was brought to the Catheterization Lab in the postabsorptive nonsedated state. Informed consent was obtained prior to the procedure. Local anesthetic was given subcutaneously to the left upper chest area with Lidocaine 2%. Incision was made to the left upper chest. Access was achieved and a guidewire was advanced into the left subclavian vein. PPM ventricular lead was inserted / positioned to right ventricular apex. PPM ventricular lead testing performed. PPM ventricular lead testing performed. PPM atrial lead was inserted / positioned to the right atrial appendage. PPM atrial lead testing performed. The Atrial lead sutured in place with 2-0 Silk. The Ventricular PM lead sutured in place with 2-0 Silk. Device pocket was irrigated with antibiotic, Ancef 1gm. PPM generator was attached to the lead(s) and inserted into the pocket. PPM generator was then interrogated by the programmer analyst consultant. Subcutaneous closure was completed with 3-0 Vicryl. Skin closure was completed with 4-0 Vicryl. The patient tolerated the procedure well. Estimated Blood Loss: 25 ml's IMPLANTED / EX-PLANTED DEVICES IMPLANTED DEVICE(S): PPM Ventricular lead - Putty Mixer: [employer], Model # 2088TC , Serial # [id number] PPM Atrial lead - Putty Mixer: [employer], Model # 2088TC , Serial # [id number] PPM Generator - Putty Mixer: [employer], Model # [id number] , Serial # [id number] DEVICE PARAMETERS ATRIAL LEAD PARAMETERS: P wave- 5 (mV) threshold- 0.5 (V) impedence- 430 (OHMS) VENTRICULAR LEAD PARAMETERS: R wave- 6.5 (mV) threshold- 0.5 (V) impedence- 560 (OHMS) DEVICE PARAMETERS: Mode- DDDR Lower rate- 60 Upper rate- 130 CONCLUSIONS / RECOMMENDATIONS Device Conclusions: Successful implantation of a dual chamber pacemaker Device Recommendations: Follow up with Primary Care Physician PROCEDURE MEDICATIONS Versed 1 mg IV Fentanyl 50 mcg IV Fentanyl 50 mcg IV Versed 1 mg IV Versed 1 mg IV Fentanyl 25 mcg IV Versed 1 mg IV Fentanyl 25 mcg IV Fentanyl 25 mcg IV Fentanyl 50 mcg IV Versed 1 mg IV Antibiotic given in appropriate timeframe. Aspirin (325mg) 1 Tabs PO 01/31/2025 10:53:55 Ancef 2 Gm IV @ 01/31/2025 11:50:18 Heparin given IA 01/31/2025 11:10:51 Signed By Sergo Perez MD On 01/31/2025 14:03:40 Sergo Perez MD 01/31/25 1404 Date _ Sergo Perez MD Cosigner Signature: Date (if indicated) CC: Dr. Davy Lanier DO; Dr. Sergo Perez MD; Dr. Chloe Cheema MD ~ Date Dictated: 01/31/25 1110 Date Transcribed: 01/31/25 1403 Coding Spec: CO Signed [facility] Work Phone: Phosphoruson 01-31-2025 Phosphate [Mass/Vol] 3.7 mg/dL Normal 2.7-4.5 [facility] Comment on above: Performed By: #### L 100.0100, L500.2500 #### [facility] [address] [place], [address] Serum globulin measurementOr dered By: Ashley Claros on 01-31-2025 Globulin (S) [Mass/Vol] 2.1 g/dL Low 2.2-4.2 [facility] Comment on above: Performed By: #### L 100.0100, L500.2500 #### [facility] [address] [place], [address] Serum or plasma alanine fuchs otransferase (ALT) measurementOrdered By: Ashley Claros on 01-31-2025 ALT [Catalytic activity/Vol] 28 U/L <47 [facility] Comment on above: Performed By: #### L 100.0100, L500.2500 #### [facility] [address] [place], [address] Serum or plasma albumin peterson urement (mass/volume)Ordered By: Ashley Claros on 01-31-2025 Albumin [Mass/Vol] 3.8 g/dL 3.4-4.8 [facility] Comment on above: Performed By: #### L 100.0100, L500.2500 #### [facility] [address] [place], [address] Serum or plasma albumin/glob ulin mass ratioOrdered By: Ashley Claros on 01-31-2025 Albumin/Globulin [Mass ratio] 1.8 {ratio} 0.9-2.4 [facility] Comment on above: Performed By: #### L 100.0100, L500.2500 #### [facility] [address] [place], [address] Serum or plasma alkaline miki sphatase measurementOrdered By: Ashley Claros on 01-31-2025 ALP [Catalytic activity/Vol] 57 U/L 40-129 [facility] Serum or plasma ethanol peterson urement (mass/volume)Ordered By: Ashley Claros on 01-31-2025 Ethanol [Mass/Vol] mg/dL <10.1 [facility] Comment on above: This test is for med ical purposes only. The legal definition of intoxication varies according to local law. TSH DL <= 0.005 mIU/L QnOrde red By: Ashley Claros on 01-31-2025 TSH Qn 1.800 uIU/mL 0.300-4.20 0 [facility] TXT:Device Implant / Explant on 01-31-2025 TXT:Device Implant / Explant [facility] Imaging Services [address] [place] [address] TXT:Device Implant / Explant MR#: [id number] Acct: [id number] Name: JERO GARZON Rep #: [id number] : 1955 69 From: Sergo Perez MD PCP: Dr. Chloe Cheema MD Status:ADM FRANNY Patient: JERO GARZON Study Date: 01/31/2025 Performing: Sergo Perez MD : 1955 Age: 69 Gender: male PROCEDURES PERFORMED DC02-(57628)LHC/COR LP04-(15139)INITIAL PACER INSERT+DUAL LEADS INDICATIONS Other second degree AV block. 2:1 heart block PROCEDURE DETAILS The patient was brought to the Catheterization Lab in the postabsorptive nonsedated state. Informed consent was obtained prior to the procedure. Local anesthetic was given subcutaneously to the left upper chest area with Lidocaine 2%. Incision was made to the left upper chest. Access was achieved and a guidewire was advanced into the left subclavian vein. PPM ventricular lead was inserted / positioned to right ventricular apex. PPM ventricular lead testing performed. PPM ventricular lead testing performed. PPM atrial lead was inserted / positioned to the right atrial appendage. PPM atrial lead testing performed. The Atrial lead sutured in place with 2-0 Silk. The Ventricular PM lead sutured in place with 2-0 Silk. Device pocket was irrigated with antibiotic, Ancef 1gm. PPM generator was attached to the lead(s) and inserted into the pocket. PPM generator was then interrogated by the programmer analyst consultant. Subcutaneous closure was completed with 3-0 Vicryl. Skin closure was completed with 4-0 Vicryl. The patient tolerated the procedure well. Estimated Blood Loss: 25 ml's IMPLANTED / EX-PLANTED DEVICES IMPLANTED DEVICE(S): PPM Ventricular lead - Putty Mixer: [employer], Model # 2088TC , Serial # [id number] PPM Atrial lead - Putty Mixer: [employer], Model # 2088TC , Serial # [id number] PPM Generator - Putty Mixer: [employer], Model # [id number] , Serial # [id number] DEVICE PARAMETERS ATRIAL LEAD PARAMETERS: P wave- 5 (mV) threshold- 0.5 (V) impedence- 430 (OHMS) VENTRICULAR LEAD PARAMETERS: R wave- 6.5 (mV) threshold- 0.5 (V) impedence- 560 (OHMS) DEVICE PARAMETERS: Mode- DDDR Lower rate- 60 Upper rate- 130 CONCLUSIONS / RECOMMENDATIONS Device Conclusions: Successful implantation of a dual chamber pacemaker Device Recommendations: Follow up with Primary Care Physician PROCEDURE MEDICATIONS Versed 1 mg IV Fentanyl 50 mcg IV Fentanyl 50 mcg IV Versed 1 mg IV Versed 1 mg IV Fentanyl 25 mcg IV Versed 1 mg IV Fentanyl 25 mcg IV Fentanyl 25 mcg IV Fentanyl 50 mcg IV Versed 1 mg IV Antibiotic given in appropriate timeframe. Aspirin (325mg) 1 Tabs PO 01/31/2025 10:53:55 Ancef 2 Gm IV @ 01/31/2025 11:50:18 Heparin given IA 01/31/2025 11:10:51 Signed By Sergo Perez MD On 01/31/2025 14:03:40 Sergo Perez MD 01/31/25 1404 Date Sergo Perez MD Cosigner Signature: Date (if indicated) CC: Dr. Davy Lanier DO; Dr. Sergo Perez MD; Dr. Chloe Cheema MD Date Dictated: 01/31/25 1110 Date Transcribed: 01/31/25 140 Coding Spec: CO Signed Normal [facility] Thyroid Stim Hormone (TSH)on 01-31-2025 TSH 1.800 uIU/mL Normal 0.300-4.20 0 [facility] Comment on above: Performed By: #### L 100.0100, L500.2500 #### [facility] [address] [place], [place], [id number] Total proteinOrdered By: Samir Claros on 01-31-2025 Protein [Mass/Vol] 5.9 g/dL 5.9-8.4 [facility] Urine Drug Screen (VISTA)on 01-31-2025 AMPHETAMINES Normal <1000 ng/mL [facility] Comment on above: Result Comment: PT D ISCHARGED Performed By: #### L 100.0100, L500.2500 #### [facility] [address] [place], [place], [id number] BARBITIURATES Normal < 200 ng/mL [facility] Comment on above: Result Comment: PT D ISCHARGED Performed By: #### L 100.0100, L500.2500 #### [facility] [address] [place], [place], [id number] BENZODIAZIPINE Normal < 200 ng/mL [facility] Comment on above: Result Comment: PT D ISCHARGED Performed By: #### L 100.0100, L500.2500 #### [facility] [address] [place], [address] BUP Ur Drug Scr Normal < 200 ng/mL [facility] Comment on above: Result Comment: PT D ISCHARGED Performed By: #### L 100.0100, L500.2500 #### [facility] [address] [place] [address] COCAINE Normal < 300 ng/mL [facility] Comment on above: Result Comment: PT D ISCHARGED Performed By: #### L 100.0100, L500.2500 #### [facility] [address] [place] [address] Fentanyl Normal [facility] Comment on above: Result Comment: PT D ISCHARGED Performed By: #### L 100.0100, L500.2500 #### [facility] [address] [place] [address] METHADONE Normal < 300 ng/mL [facility] Comment on above: Result Comment: PT D ISCHARGED Performed By: #### L 100.0100, L500.2500 #### [facility] [address] [place] [address] OPIATES Normal < 300 ng/mL [facility] Comment on above: Result Comment: PT D ISCHARGED Performed By: #### L 100.0100, L500.2500 #### [facility] [address] [place] [address] OXYCODONE Normal < 100 ng/mL [facility] Comment on above: Result Comment: PT D ISCHARGED Performed By: #### L 100.0100, L500.2500 #### [facility] [address] [place] [id number] PCP Normal < 25 ng/mL [facility] Comment on above: Result Comment: PT D ISCHARGED Performed By: #### L 100.0100, L500.2500 #### [facility] [address] [place], [address] THC Normal < 50 ng/mL [facility] Comment on above: Result Comment: PT D ISCHARGED Performed By: #### L 100.0100, L500.2500 #### [facility] [address] [place], [address] Vitamin B12on 01-31-2025 Cobalamin (Vitamin B12) [Mass/Vol] 877 pg/mL Normal 180-914 [facility] Comment on above: Performed By: #### L 100.0100, L500.2500 #### [facility] [address] [place], [address] Vitamin B12 ser/plasOrdered By: Ashley Claros on 01-31-2025 Cobalamin (Vitamin B12) [Mass/Vol] 877 pg/mL 180-914 [facility] Abdomen/Pelvis W IV Cont ONL Yon 01-30-2025 Abdomen/Pelvis W IV Cont ONLY [facility] Imaging Services [address] [place] [address] Abdomen/Pelvis W IV Cont ONLY MR#: [id number] Acct: [id number] Name: JERO GARZON Rep #: [id number] : 1955 M 69 From: Carrillo Olsen MD PCP: Dr. Chloe Cheema MD Status: [facility] Study: Abdomen/Pelvis W IV Cont ONLY Date of Exam: Exam# [id number] Ordering Dr: Chapis Polo MD PROCEDURE: ABDOMEN/PELVIS W IV CONT ONLY 01/30/2025 REASON FOR EXAM: ABDOMINAL PAIN TECHNIQUE: ABDOMEN/PELVIS W IV CONT ONLY Coronal and Sagittal reconstruction series were provided. One or more dose reduction techniques were used (e.g., Automated exposure control, adjustment of the mA and/or kV according to patient size, use of iterative reconstruction technique. RADIATION DOSE SUMMARY: CTDlvol: 24 mGy DLP: 3391 mGycm COMPARISON: 10/28/2024. FINDINGS: The lung bases are clear. Coronary artery calcifications. The peripheral soft tissues are unremarkable. Mild atherosclerosis of a normal caliber abdominal aorta. No suspicious lymphadenopathy. Small hepatic cyst. The liver is normal airway is unremarkable. Surgically absent gallbladder. The pancreas and spleen are unremarkable. Stable left adrenal 1.6 cm nodule. Right kidney simple cyst. Symmetric enhancement of bilateral kidneys. No hydroureteronephrosis. The urinary bladder is unremarkable. Penile implant with pump is present. Normal caliber large and small bowel. Diverticulosis. Dense colonic stool. No surrounding inflammatory changes. CT/Abdomen/Pelvis W IV Cont ONLY IMPRESSION: No acute abnormalities of the abdomen or pelvis. Diverticulosis. Dense colonic stool which may suggest constipation. Chronic and ancillary findings as above. Reading Location: [facility] CC: Dr. Chapis Polo MD; Dr. Chloe Cheema MD Coding Spec: Signed Normal [facility] Absolute lymphocyte countOrd ered By: ED PROVIDER on 01-30-2025 Lymphocytes Auto (Unsp spec) [#/Vol] 1.10 10*3/uL 0.83-4.51 [facility] Absolute neutrophil countOrd ered By: ED PROVIDER on 01-30-2025 Neutrophils (Bld) [#/Vol] 6.3 10*3/uL 2.0-7.7 [facility] Anion gap in Serum or Plasma Ordered By: Chapis Polo on 01-30-2025 Anion gap [Moles/Vol] 15 mmol/L 5-15 [facility] Automated lymphocyte count a s percentage of total leukocytesOrdered By: ED PROVIDER on 01-30-2025 Lymphocytes/100 WBC Auto (Unsp spec) 13.8 % Low 19-41 [facility] BUN/creatinine ratioOrdered By: Chapis Polo on 01-30-2025 Urea nitrogen/Creatinine [Mass ratio] 10.3 mg/mg - [facility] Basic Metabolic Profile (BMP )on 01-30-2025 BUN/CRE 10.3 RATIO Normal 04-07 [facility] Comment on above: Performed By: #### L 100.0100, L500.2500 #### [facility] [place], [address] Calcium [Mass/Vol] 9.5 mg/dL Normal 7.6-11.0 [facility] Comment on above: Performed By: #### L 100.0100, L500.2500 #### [facility] [address] [place], [address] Chloride [Moles/Vol] 104 mmol/L Normal 98-108 [facility] Comment on above: Performed By: #### L 100.0100, L500.2500 #### [facility] [address] [place], [address] CO2 [Moles/Vol] 22.1 mmol/L Normal 21.0-32.0 [facility] Comment on above: Performed By: #### L 100.0100, L500.2500 #### [facility] [address] [place], [address] Creatinine [Mass/Vol] 1.37 mg/dL High 0.70-1.20 [facility] Comment on above: Performed By: #### L 100.0100, L500.2500 #### [facility] [address] [place], [address] GAP 15 Normal 5-15 [facility] Comment on above: Performed By: #### L 100.0100, L500.2500 #### [facility] [address] [place], [address] GFR/1.73 sq M.predicted among non-blacks MDRD (S/P/Bld) [Vol rate/Area] 57 mL/min/{1.73_m2} Low >60 [facility] Comment on above: Result Comment: mL/m in/1.73m2 CKD-EPI Creatinine Equation (2020) Performed By: #### L 100.0100, L500.2500 #### [facility] [address] [place], [address] Glucose [Mass/Vol] 143 mg/dL High 70-99 [facility] Comment on above: Performed By: #### L 100.0100, L500.2500 #### [facility] [address] [place], [address] Potassium [Moles/Vol] 3.7 mmol/L Normal 3.3-5.1 [facility] Comment on above: Performed By: #### L 100.0100, L500.2500 #### [facility] [address] [place], [address] Sodium [Moles/Vol] 141 mmol/L Normal 133-145 [facility] Comment on above: Performed By: #### L 100.0100, L500.2500 #### [facility] [address] [place], [address] Urea nitrogen [Mass/Vol] 14 mg/dL Normal 4-19 [facility] Comment on above: Performed By: #### L 100.0100, L500.2500 #### [facility] [address] [place], [address] Basophil percentageOrdered B y: ED PROVIDER on 01-30-2025 Basophils/100 WBC (Bld) 0.3 % 0-1 [facility] Bilirubin Test strip Ql (U)O rdered By: Chapis Polo on 01-30-2025 Bilirubin Ql (U) Negative Negative [facility] Bilirubin directOrdered By: Chapis Polo on 01-30-2025 Bilirubin.direct [Mass/Vol] 0.38 mg/dL High 0.00-0.30 [facility] Bilirubin, totalOrdered By: Chapis Polo on 01-30-2025 Bilirubin [Mass/Vol] 0.91 mg/dL 0.00-1.30 [facility] Brain/Head without Contrasto n 01-30-2025 Brain/Head without Contrast [facility] Imaging Services [address] [place] [address] Brain/Head without Contrast MR#: [id number] Acct: [id number] Name: JERO GARZON Rep #: [id number] : 1955 M 69 From: Carrillo Olsen MD PCP: Dr. Chloe Cheeam MD Status: REG ER Study: Brain/Head without Contrast Date of Exam: 01/17 10/11 Exam# [id number] Ordering Dr: Chapis Polo MD PROCEDURE: BRAIN/HEAD WITHOUT CONTRAST 01/30/2025 REASON FOR EXAM: SYNCOPAL EPISODES TECHNIQUE: BRAIN/HEAD WITHOUT CONTRAST Coronal and Sagittal reconstruction series were provided. One or more dose reduction techniques were used (e.g., Automated exposure control, adjustment of the mA and/or kV according to patient size, use of iterative reconstruction technique. RADIATION DOSE SUMMARY: CTDlvol: 24 mGy DLP: 260 mGycm COMPARISON: 02/12/2022. FINDINGS: Mild global parenchymal atrophy. Periventricular white matter hypodensity likely representing mild chronic microvascular ischemia. No evidence of acute hemorrhage or infarction. No extra-axial blood or fluid collections. Right maxillary sinus retention cyst. The mastoid air cells are clear. Calvarial vault and skull base are intact. CT/Brain/Head without Contrast IMPRESSION: No acute intracranial abnormality. Reading Location: [facility] CC: Dr. Chapis Polo MD; Dr. Chloe Cheema MD Coding Spec: Signed Normal [facility] CBC W/Diff, Automatedon 01-17 Absolute Lymph 1.10 X10 3/uL Normal 0.83-4.51 [facility] Comment on above: Performed By: #### L 100.0100, L500.2500 #### [facility] [address] [place], [address] Absolute Neut 6.3 X10 3/uL Normal 2.0-7.7 [facility] Comment on above: Performed By: #### L 100.0100, L500.2500 #### [facility] [address] [place], [address] Basophils/100 WBC (Bld) 0.3 % Normal 0-1 [facility] Comment on above: Performed By: #### L 100.0100, L500.2500 #### [facility] [address] [place], [address] Eosinophils/100 WBC (Bld) 0.4 % Normal 0-5 [facility] Comment on above: Performed By: #### L 100.0100, L500.2500 #### [facility] [address] [place], [address] Erythrocyte distribution width (RBC) [Ratio] 12.6 % Normal 11.6-14.6 [facility] Comment on above: Performed By: #### L 100.0100, L500.2500 #### [facility] [address] [place], [address] Hematocrit (Bld) [Volume fraction] 46.8 % Normal 40-54 [facility] Comment on above: Performed By: #### L 100.0100, L500.2500 #### [facility] [address] [place], [address] Hemoglobin (Bld) [Mass/Vol] 16.6 g/dL High 13.0-16.5 [facility] Comment on above: Performed By: #### L 100.0100, L500.2500 #### [facility] [address] [place], [address] IG% 0.100 Normal 0.0-0.9 [facility] Comment on above: Result Comment: IG% - Immature Granulocytes (promyelocytes, myelocytes and metamyelocytes) > 1% indicates that a LEFT SHIFT is Present. Performed By: #### L 100.0100, L500.2500 #### [facility] [address] [place], [address] Lymphocytes/100 WBC (Bld) 13.8 % Low 19-41 [facility] Comment on above: Performed By: #### L 100.0100, L500.2500 #### [facility] [address] [place], [address] MCH (RBC) [Entitic mass] 29.6 pg Normal 27.0-32.0 [facility] Comment on above: Performed By: #### L 100.0100, L500.2500 #### [facility] [address] [place], [address] MCHC (RBC) [Mass/Vol] 35.5 g/dL Normal 32-36 [facility] Comment on above: Performed By: #### L 100.0100, L500.2500 #### [facility] [address] [place], [address] MCV (RBC) [Entitic vol] 83.4 fL Normal 80-94 [facility] Comment on above: Performed By: #### L 100.0100, L500.2500 #### [facility] [address] [place], [address] Monocytes/100 WBC (Bld) 6.5 % Normal 0-10 [facility] Comment on above: Performed By: #### L 100.0100, L500.2500 #### [facility] [address] [place], [address] Neutrophils/100 WBC (Bld) 78.9 % High 47-70 [facility] Comment on above: Performed By: #### L 100.0100, L500.2500 #### [facility] [address] [place], [address] Nucleated RBC (Bld) [#/Vol] 0 10*3/uL Normal 0-5 [facility] Comment on above: Performed By: #### L 100.0100, L500.2500 #### [facility] [address] [place], [address] Platelet mean volume (Bld) [Entitic vol] 11.2 fL Normal 6.2-12.0 [facility] Comment on above: Performed By: #### L 100.0100, L500.2500 #### [facility] [address] [place], [address] Platelets (Bld) [#/Vol] 193 10*3/uL Normal 150-450 [facility] Comment on above: Performed By: #### L 100.0100, L500.2500 #### [facility] [address] [place], [address] RBC (Bld) [#/Vol] 5.61 10*6/uL Normal 4.6-6.2 [facility] Comment on above: Performed By: #### L 100.0100, L500.2500 #### [facility] [address] [place], [address] RDW SD 38.2 fl Normal 35.1-43.9 [facility] Comment on above: Performed By: #### L 100.0100, L500.2500 #### [facility] [address] [place], [address] WBC (Bld) [#/Vol] 8.0 10*3/uL Normal 4.4-11.0 [facility] Comment on above: Performed By: #### L 100.0100, L500.2500 #### [facility] [address] [place], [address] CTA Head AND Neck W/ Contras ton 01-30-2025 CTA Head AND Neck W/ Contrast [facility] Imaging Services [address] [place] [address] CTA Head AND Neck W/ Contrast MR#: [id number] Acct: [id number] Name: JERO GARZON Rep #: [id number] : 1955 M 69 From: Pranav Stoner MD PCP: Dr. Chloe Cheema MD Status: [facility] ER Study: CTA Head AND Neck W/ Contrast Date of Exam: Exam# [id number] Ordering Dr: Chapis Polo MD PROCEDURE: CTA HEAD AND NECK W/ CONTRAST 01/30/2025 REASON FOR EXAM: DIZZINES, SYNCOPAL EPISODES TECHNIQUE: CTA HEAD AND NECK W/ CONTRAST Multiplanar Sagittal and Coronal images were obtained. 3D and MIP post processing was performed. CONTRAST: Isovue 370 VOLUME: 100 mL One or more dose reduction techniques were used (e.g., Automated exposure control, adjustment of the mA and/or kV according to patient size, use of iterative reconstruction technique). RADIATION DOSE SUMMARY: DLP: 3391.85 mGycm COMPARISON: Noncontrast CT head same day 01/30/2025. FINDINGS: CTA HEAD: Patent intracranial arterial vasculature. No large vessel occlusion, flow-limiting stenosis, saccular aneurysm, or vascular malformation identified. CTA NECK: Conventional aortic arch branching. Bilateral cervical carotid and vertebral arteries are widely patent and normal in course and caliber. No aneurysm or dissection. Relatively hypoplastic distal V4 segment of the right vertebral artery compared to the dominant left side. NON-ANGIOGRAPHIC FINDINGS: Mild multilevel degenerative changes of the cervical spine. 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 Mild polypoid mucosal thickening in the right maxillary sinus. CT/CTA Head AND Neck W/ Contrast IMPRESSION: Normal CTA of the head and neck. Reading Location: [facility] CC: Dr. Chapis Polo MD; Dr. Chloe Cheema MD Coding Spec: Signed Normal [facility] Carbon dioxide, total [Moles /volume] in Central venous bloodOrdered By: Chapis Polo on 01-30-2025 CO2 [Moles/Vol] 22.1 mmol/L 21.0-32.0 [facility] Carotid Duplex Ultrasoundon 01-30-2025 Carotid Duplex Ultrasound [facility] Cardi[facility] Services [address] [place] [address] Carotid Duplex Ultrasound 01/31/25 1450 MR#: [id number] Acct: [id number] Name: JERO GARZON Rep #: [id number] : 1955 69 From: Hari Vega MD Attending Dr: Dr. Librado Bah DO Status: D IS IN Ordering Dr: Ashley Jacobs DO Date: 01/30/25 Location: [facility] Sex: M C Admitted: 01/31/25 Reason For Study Reason For Study: Evaluate for stenosis Rt. Velocities/BP Lt. Velocities/BP Prox CCA 86.3/11.6 cm/sec. Prox CCA 117/11.4 cm/sec. Mid CCA 68.3/7.8 cm/sec. Mid CCA 81.4/10.2 cm/sec. Dist CCA 62.6/9.7 cm/sec. Dist CCA 80.2/9 cm/sec. Prox ICA 33.3/7.8 cm/sec. Prox ICA 49.5/11.4 cm/sec. Mid ICA 64.5/15.7 cm/sec. Mid ICA 70.4/15.1 cm/sec. Dist ICA 79.1/17.5 cm/sec. Dist ICA 60.5/15.1 cm/sec. Rt. ICA/CCA = 1.16. Lt. ICA/CCA = 0.86. Prox ECA 84.4/4.1 cm/sec. Prox ECA 96.1/5.3 cm/sec. Rt. Vert. 47.5/8.8 cm/sec. Lt. Vert. 64.2/16.3 cm/sec. Right Extracranial There is intimal thickening but no significant atherosclerotic plaque noted in the right common carotid artery. There is intimal thickening but no significant atherosclerotic plaque noted in the right internal carotid artery. There is homogeneous, smooth atherosclerotic plaque noted in the right external carotid artery. Antegrade flow is noted in the right vertebral artery. Left Extracranial There is intimal thickening but no significant atherosclerotic plaque noted in the left common carotid artery. There is homogeneous, smooth atherosclerotic plaque noted in the left internal carotid artery. There is intimal thickening but no significant atherosclerotic plaque noted in the left external carotid artery. Antegrade flow is noted in the left vertebral artery. Procedure This is a Carotid Duplex examination using B-mode, color flow and specral Doppler. Carotid Duplex 30618. Exam performed portable in patient room. VL/Carotid Duplex Ultrasound Interpretation Summary No significant atherosclerotic plaque or stenosis noted in the right internal carotid artery. Mild (<50%) stenosis left extracranial internal carotid. Flow within the vertebral arteries is antegrade bilaterally. Ordering Physician: Ashley Jacobs Referring Physician: Chloe Cheema Performed By: Angela Og RVT 02/02/252119 Date Hari Vega MD CC: Dr. Ashley Jacobs DO; Dr. Librado Bah DO; Dr. Chloe Cheema MD Date Dictated: 01/31/251449 Date Transcribed: 02/02/252119 Coding Spec: Signed Normal [facility] Chest 1 View (Portable)on Chest 1 View (Portable) [facility] Imaging Services [address] [place] [address] Chest 1 View (Portable) MR#: [id number] Acct: [id number] Name: JERO GARZON Rep #: [id number] : 1955 69 From: Pranav Stoner MD PCP: Dr. Chloe Cheema MD Status: [facility] Study: Chest 1 View (Portable) Date of Exam: 01/30/25 Exam# [id number] Ordering Dr: Chapis Polo MD PROCEDURE: CHEST 1 VIEW (PORTABLE) 01/30/2025 REASON FOR EXAM: CHEST PAIN TECHNIQUE: Frontal view of the chest. COMPARISON: 11/20/2024 FINDINGS: Lungs/Pleura: Clear. No pneumothorax or sizable pleural effusion. Heart/Mediastinum: Within normal limits. Bones/Soft tissues: Mild degenerative changes of the visualized spine. Spinal cord stimulator device lead projects over the lower thoracic spinal canal. RAD/Chest 1 View (Portable) IMPRESSION: No acute cardiopulmonary disease. Reading Location: [facility] CC: Dr. Chapis Polo MD; Dr. Chloe Cheema MD Coding Spec: Signed Normal [facility] Chloride assayOrdered By: Irina Polo on 01-30-2025 Chloride [Moles/Vol] 104 mmol/L 98-108 [facility] Echo Completeon 01-30-2025 Echo Complete [facility] Cardiovascular Services [address] [place] [address] Echo Complete 01/31/25 0806 MR#: [id number] Acct: [id number] Name: JERO GARZON Rep #: [id number] : 1955 69 From: Sergo Perez MD Attending Dr: Dr. Davy Lanier DO Status : ADM FRANNY Ordering Dr: Ashley Jacobs DO Date: 01/30/25 Location: [facility] Sex: M C Admitted: 01/30/25 Reason For Study Reason For Study: SYNCOPE/NEAR SYNCOPE Procedure This was a 2D Doppler, Color Flow transthoracic echocardiogram. The study was technically difficult. Exam performed portable in patient room. Left Ventricle Normal LV size. Moderate concentric left ventricular hypertrophy. Left ventricular systolic function is normal. The left ventricular ejection fraction is 60 %. No regional wall motion abnormalities noted. Right Ventricle Normal RV size. Normal systolic function. Atria The left atrium is moderately enlarged. Normal right atrium. Mitral Valve Normal mitral valve. Tricuspid Valve Normal tricuspid valve. Aortic Valve Trisinus/trileaflet aortic valve. Pulmonic Valve Normal pulmonic valve. Great Vessels Mildly dilated aortic root. The pulmonary artery is normal size. Inferior vena cava collapse with respiration. Pericardium/Pleural No pericardial effusion. MMode/2D Measurements Calculations LVIDd: 5.5 cm IVSd: 1.5 cm Ao root diam: 4.1 cm LVIDs: 3.4 cm LVPWd: 1.3 cm RVDd: 4.3 cm FS: 37.8 % LAV(MOD-bp): 118.6 ml LVAd ap4: 34.6 cm2 LVAd ap2: 31.8 cm2 LAV(MOD-bp) Indexed: 43.7 ml/m2 LVLd ap4: 8.5 cm LVLd ap2: 9.1 cm LAV(MOD-sp2): 115.8 ml EDV(MOD-sp4): 115.5 ml EDV(MOD-sp2): 95.1 ml LAV(MOD-sp4): 115.1 ml EDV(sp4-el): 119.5 ml EDV(sp2-el): 94.3 ml LVAs ap4: 20.9 cm2 LVAs ap2: 18.4 cm2 LVLs ap4: 7.1 cm LVLs ap2: 7.6 cm ESV(MOD-sp4): 51.0 ml ESV(MOD-sp2): 38.9 ml ESV(sp4-el): 51.9 ml ESV(sp2-el): 37.7 ml EF(MOD-sp4): 55.9 % EF(MOD-sp2): 59.1 % EF(sp4-el): 56.6 % SV(MOD-sp4): 64.5 ml SV(MOD-sp2): 56.2 ml SV(sp4-el): 67.7 ml SI(MOD-sp4): 23.8 ml/m2 SI(MOD-sp2): 20.7 ml/m2 LA A4 area: 28.9 cm2 LA dimension(2D): 5.9 cm TAPSE: 3.0 cm Time Measurements MV dec time: 0.19 sec Doppler Measurements Calculations MV E max yasmeen: 82.5 cm/sec Lat Peak E' Yasmeen: 12.2 cm/sec Med Peak E' Yasmeen: 7.6 cm/sec MV A max yasmeen: 67.3 cm/sec E/E' lat: 6.8 E/E' med: 10.8 MV E/A: 1.2 Ao V2 max: 94.5 cm/sec LV V1 max: 87.4 cm/sec PA V2 max: 111.4 cm/sec Ao max P.6 mmHg LV V1 max P.1 mmHg PA V2 mean: 76.4 cm/sec Ao V2 mean: 66.9 cm/sec LV V1 mean P.8 mmHg Ao mean P.0 mmHg LV V1 mean: 63.5 cm/sec Ao V2 VTI: 21.5 cm LV V1 VTI: 19.6 cm AV (velocity ratio): 0.91 ECHO/Echo Complete Interpretation Summary Normal LV size. Left ventricular systolic function is normal. Moderate concentric left ventricular hypertrophy. Mildly dilated aortic root. The left ventricular ejection fraction is 60 %. Ordering Physician: Ashley Jacobs Referring Physician: Chloe Cheema Performed By: Imelda Lopez, RDCS, RVT 01/31/25 1208 Date Sergo Perez MD CC: Dr. Davy Lanier DO; Dr. Ashley Jacobs DO; Dr. Chloe Cheema MD Date Dictated: 01/31/25805 Date Transcribed: 01/31/251207 Coding Spec: Signed Normal [facility] Emergency Department Summary on 01-30-2025 Emergency Department Summary [facility] Medical Records Department [address] [place] [address] Emergency Department Summary 01/30/25 MR#: [id number] Acct: [id number] Name: JERO GARZON Rep #: [id number] : 1955 69 From: Chapis Polo MD PCP: Dr. Chloe Cheema MD Status:[facility] ER Location: ED HPI History of Present Illness Chief Complaint: Chest Pain Narrative Narrative: Patient is a 69-year-old male presenting to the emergency department for multiple complaints including chest pain and presyncopal episodes. Patient has extensive past medical history as below. Patient states that over the past week he has felt very fatigued. Patient states that he has been trying to work in the garage and anytime he exerts himself he develops black spots in his vision and feels like he is going to pass out. States he is only passed out once. Denies any head injury from this event. He reports midsternal pressure-like chest pain that radiates to the right chest wall. Endorses some intermittent shortness of breath as well. Endorses lower abdominal bloating. Endorses nausea with no vomiting. Denies any diarrhea, dysuria or hematuria. [facility] Medical History Prostate infection History of cardioversion First degree heart block [...] disease) Essential hypertension Atherosclerotic heart disease of [place] coronary artery without angina pectoris Confusion Unstable angina HTN (hypertension) Abnormal myocardial perfusion study H/O percutaneous transluminal coronary angioplasty Abnormal stress test DEENA (obstructive sleep apnea) Pulmonary embolism Obesity Testosterone deficiency Home Medications ???Medication ???Instructions ???Recorded ???Last Taken ???Type albuterol sulfate 90 mcg/actuation 1 - 2 puff inhalation Q6H PRN 02/08/20 History aerosol inhaler Asthma testosterone 4 pump transdermal DAILY low 11/2301/30/25 History testosterone tamsulosin 0.4 mg capsule 0.4 mg PO DAILY prostate 04/29/22 01/30/25 History amlodipine 5 mg tablet 10 mg (2 x 5 mg) PO DAILY htn #90 04/08/24 01/30/25 Rx tabs esomeprazole magnesium 40 mg 40 mg PO BID 10/28/24 01/30/25 His tory capsule,delayed release finasteride 5 mg tablet 5 mg PO DAILY 10/28/24 01/30/25 Hi story losartan 100 mg tablet 100 mg PO DAILY 10/28/24 01/30/25 History multivitamin (Daily Multi-Vitamin 1 tab PO DAILY 10/28/24 01/30/25 History tablet) oxycodone-acetaminophen 5 mg-325 1 tab PO DAILY PRN pain 10/28/24 U nknown History mg tablet potassium chloride 10 mEq 20 meq PO DAILY 10/28/24 01/30/25 History tablet,extended release atomoxetine 40 mg capsule 100 mg PO DAILY 11/28/24 01/30/25 History semaglutide (weight loss) 0.25 0.25 mg (0.5 mL) subcut QWEEK #2 m L 12/02/24 01/26/25 Rx mg/0.5 mL subcutaneous pen injector (Wegovy) Allergy/AdvReac Type Severity Reaction Status Date / Time Sulfa (Sulfonamide Allergy Unknown Verified 01/30/25 15:46 Antibiotics) Family History Mother CAD (coronary artery [...] use type: does not use caffeine: Yes Type (more content not included)... Normal [facility] Eosinophil percentageOrdered By: ED PROVIDER on 01-30-2025 Eosinophils/100 WBC (Bld) 0.4 % 0-5 [facility] Erythrocyte distribution wid th ratioOrdered By: ED PROVIDER on 01-30-2025 Erythrocyte distribution width (RBC) [Ratio] 12.6 % 11.6-14.6 [facility] Erythrocyte distribution wid th standard deviationOrdered By: ED PROVIDER on 01-30-2025 Erythrocyte distribution width (RBC) [Ratio] 38.2 fl 35.1-43.9 [facility] Glomerular filtration rate ( GFR) estimation/1.73 sq m using serum, plasma, or whole bOrdered By: Chapis Polo on 01-30-2025 GFR/1.73 sq M.predicted among non-blacks MDRD (S/P/Bld) [Vol rate/Area] 57 mL/min/{1.73_m2} Low >60 [facility] Comment on above: mL/min/1.73m2 CKD-EP I Creatinine Equation (2020) H AND P Exam - [facility] 01-30-2025 H&P Exam - Hospitalist [facility] Medical Records Department [address] [place] [address] H P Exam - Hospitalist 01/30/252216 MR#: [id number] Acct: [id number] Name: JERO GARZON Rep #: [id number] : 1955 69 From: Ashley Jacobs DO PCP: Dr. Chloe Cheema MD Status:ADM IN Location: [place] [address]-1 HPI - General General Date of Admission: 01/30/25 Date of Service: 01/30/25 Chief Complaint: Chest Pain and Near Syncope. HPI Narrative JERO GARZON, is a 69 M with a past medical history of essential hypertension; on amlodipine and losartan, former tobacco abuse (quit 1994), obesity (class II); with BMI of 38.6 this admission on semaglutide, DEENA; on CPAP, CAD; s/p LAD stent (2012), history of paroxysmal atrial fibrillation; currently not on anticoagulation, history of PE, history of TIA, ADHD; on atomoxetine, testosterone deficiency; on HRT, BPH; on finasteride plus tamsulosin, GERD; on esomeprazole twice daily, OA and history of recent chest pain workup; other negative stress test done here by [facility] in November 21, 2024 that revealed LVEF of 65% who presents to [facility] ER complaining of chest pain and near syncope. Mr. Garzon reports his symptoms began approximately 1 week prior to admission with progressively worsening fatigue and patient stating he is having black spots in his vision when he exerts himself and feels like he is going to pass out, but he is only completely passed out once. He denies associated head injury, loss of consciousness or other significant trauma related to his syncopal event. He also admits to chest pain that he reports is midsternal, pressure-like and radiating to the Right chest wall complicated by intermittent shortness of breath that is made worse with exertion - which is nearly identical to that it was physical and general symptom that heralded his previous LAD stent placement. He also admits to intermittent lower abdominal bloating and nausea but no vomiting, diarrhea, constipation fever, chills, dysuria, hematuria, headache or rash. In the ER he was noted to have a very mildly elevated initial troponin T of 31 ng/L followed by a second declining troponin T of 29 ng/L with CT scan of the abdomen/pelvis with IV contrast done in the ER that revealed no acute abnormalities of the abdomen and pelvis with diverticulosis and dense colonic stool which may suggest constipation in addition to penile implant with pump he also underwent CT brain without contrast that revealed no acute intracranial abnormality in addition to CTA of the head and neck with IV contrast that was essentially unremarkable with otherwise unremarkable laboratory studies and vital signs. He was then admitted to the PCU under observation status for ongoing care for stay that is expected to be less than [address] [facility] Medical History Prostate infection History of cardioversion First degree heart block [...] disease) Essential hypertension Atherosclerotic heart disease of [place] coronary artery without angina pectoris Confusion Unstable angina HTN (hypertension) Abnormal myocardial perfusion study H/O percutaneous transluminal coronary angioplasty Abnormal stress test DEENA (obstructive sleep apnea) Pulmonary embolism Obesity Testosterone deficiency Home Medications ???Medication ???Instructions ???Recorded ???Last Taken ???Type albuterol sulfate 90 mcg/actuation 1 - 2 puff inhalation Q6H PRN 02/08/20 History aerosol inhaler Asthma testosterone 4 pump transdermal DAILY low 11/2301/30/25 History testosterone tamsulosin 0.4 mg capsule 0.4 mg PO DAILY prostate 04/29/22 01/30/25 History amlodipine 5 mg tablet 10 mg (2 x 5 mg) PO DAILY htn #90 04/08/24 01/30/25 Rx tabs esomeprazole magnesium 40 mg 40 mg PO BID 10/28/24 01/30/25 His tory capsule,delayed release finasteride 5 mg tablet 5 mg PO DAILY 10/28/24 01/30/25 Hi story losartan 100 mg tablet 100 mg PO DAILY 10/28/24 01/30/25 History multivitamin (Daily Multi-Vitamin 1 tab PO DAILY 10/28/24 01/30/25 History tablet) oxycodone-acetaminophen 5 mg-325 1 tab PO DAILY PRN pain 10/28/24 U nknown History mg tablet potassium (more content not included)... Normal [facility] Hematocrit Auto (Bld) [Volum e fraction]Ordered By: ED PROVIDER on 01-30-2025 Hematocrit (Bld) [Volume fraction] 46.8 % 40-54 [facility] Hemoglobin measurementOrdere d By: ED PROVIDER on 01-30-2025 Hemoglobin (Bld) [Mass/Vol] 16.6 g/dL High 13.0-16.5 [facility] Immature granulocytes/100 WB C Auto (Bld)Ordered By: ED PROVIDER on 01-30-2025 Immature granulocytes/100 WBC (Bld) 0.100 % 0.0-0.9 [facility] Comment on above: IG% - Immature Granu locytes (promyelocytes, myelocytes and metamyelocytes) > 1% indicates that a LEFT SHIFT is Present. Ketones Test strip Ql (U)Ord ered By: Chapis Polo on 01-30-2025 Ketones Ql (U) Negative Negative [facility] L501.4021on 01-30-2025 Trop T High Sen 31 ng/L High <=22 [facility] Comment on above: Performed By: #### L 100.0100, L500.2500 #### [facility] [address] [place], [address] Laboratory - Chemistry and C hemistry - challengeOrdered By: Chapis Polo on 01-30-2025 AST [Catalytic activity/Vol] 23 U/L <38 [facility] Lactic Acidon 01-30-2025 Lactate [Moles/Vol] 1.7 mmol/L Normal 0.0-2.0 [facility] Comment on above: Order Comment: Y Performed By: #### L 503.6005 ####[facility] [address] [place], [address] Lactic acid measurementOrder ed By: Chapis Polo on 01-30-2025 Lactate [Moles/Vol] 1.7 mmol/L 0.0-2.0 [facility] Lipaseon 01-30-2025 Lipase [Catalytic activity/Vol] 24 U/L Normal 13-75 [facility] Comment on above: Result Comment: Godwin marquez note: LIPASE revised reference range effective 22. New Lipase methodology. Expected to produce lower values than the previous assay method. NEW Reference Range: 13 - 75 U/L Performed By: #### L 100.0100, L500.2500 #### [facility] [address] [place], [address] Lipase measurementOrdered By : Chapis Polo on 01-30-2025 Lipase [Catalytic activity/Vol] 24 U/L 13-75 [facility] Comment on above: Please note:LIPASE r evised reference range effective 22. New Lipase methodology. Expected to produce lower values than the previous assay method. NEW Reference Range: 13 - 75 U/L Liver Profileon 01-30-2025 Albumin [Mass/Vol] 4.3 g/dL Normal 3.4-4.8 [facility] Comment on above: Performed By: #### L 100.0100, L500.2500 #### [facility] [address] [place], [address] ALK PHOS 62 U/L Normal 40-129 [facility] Comment on above: Performed By: #### L 100.0100, L500.2500 #### [facility] [address] [place], [address] ALT [Catalytic activity/Vol] 31 U/L Normal <=46 [facility] Comment on above: Performed By: #### L 100.0100, L500.2500 #### [facility] [address] [place], [address] AST [Catalytic activity/Vol] 23 U/L Normal <=37 [facility] Comment on above: Performed By: #### L 100.0100, L500.2500 #### [facility] [address] [place], [address] Bilirubin [Mass/Vol] 0.91 mg/dL Normal 0.00-1.30 [facility] Comment on above: Performed By: #### L 100.0100, L500.2500 #### [facility] [address] [place], [address] Bilirubin.direct [Mass/Vol] 0.38 mg/dL High 0.00-0.30 [facility] Comment on above: Performed By: #### L 100.0100, L500.2500 #### [facility] [address] [place], [address] Globulin (S) [Mass/Vol] 2.9 g/dL Normal 2.2-4.2 [facility] Comment on above: Performed By: #### L 100.0100, L500.2500 #### [facility] [address] [place], [address] T PROT 7.2 g/dL Normal 5.9-8.4 [facility] Comment on above: Performed By: #### L 100.0100, L500.2500 #### [facility] [address] [place], [address] MCV (mean corpuscular volume ) determinationOrdered By: ED PROVIDER on 01-30-2025 MCV (RBC) [Entitic vol] 83.4 fL 80-94 [facility] Magnesiumon 01-30-2025 Magnesium [Mass/Vol] 1.9 mg/dL Normal 1.5-2.2 [facility] Comment on above: Performed By: #### L 100.0100, L500.2500 #### [facility] [place], [address] Magnesium measurement (mass/ volume)Ordered By: Chapis Polo on 01-30-2025 Magnesium (Unsp spec) [Mass/Vol] 1.9 mg/dL 1.5-2.2 [facility] Mean corpuscular hemoglobin (MCH) determinationOrdered By: ED PROVIDER on 01-30-2025 MCH (RBC) [Entitic mass] 29.6 pg 27.0-32.0 [facility] Mean corpuscular hemoglobin concentration (MCHC) determinationOrdered By: ED PROVIDER on 01-30-2025 MCHC (RBC) [Mass/Vol] 35.5 g/dL 32-36 [facility] Mean platelet volume determi nationOrdered By: ED PROVIDER on 01-30-2025 Platelet mean volume (Bld) [Entitic vol] 11.2 fL 6.2-12.0 [facility] Microscopic analysis of urin e for red blood cells (RBC)Ordered By: Chapis Polo on 01-30-2025 Microscopic analysis of urine for red blood cells (RBC) 0 SEEN /hpf 0-5 [facility] Monocyte percentageOrdered B y: ED PROVIDER on 01-30-2025 Monocytes/100 WBC (Bld) 6.5 % 0-10 [facility] Mucus LM Ql (Urine sed)Order ed By: Chapis Polo on 01-30-2025 Mucus Ql (Urine sed) 0 SEEN /hpf [facility] Neutrophil percentageOrdered By: ED PROVIDER on 01-30-2025 Neutrophils/100 WBC (Bld) 78.9 % High 47-70 [facility] Nitrite Test strip Ql (U)Ord ered By: Chapis Polo on 01-30-2025 Nitrite Ql (U) Negative Negative [facility] Nucleated red blood cell per centageOrdered By: ED PROVIDER on 01-30-2025 Nucleated RBC/100 WBC (Bld) [Ratio] 0 % 0-5 [facility] Platelet countOrdered By: ED PROVIDER on 01-30-2025 Platelets (Bld) [#/Vol] 193 10*3/uL 150-450 [facility] Potassium measurement (mass/ volume)Ordered By: Chapis Polo on 01-30-2025 Potassium (Unsp spec) [Mass/Vol] 3.7 mmol/L 3.3-5.1 [facility] Protein Test strip Ql (U)Ord ered By: Chapis Polo on 01-30-2025 Protein Ql (U) 15 mg/dl High Negative [facility] RBC Auto (Bld) [#/Vol]Ordere d By: ED PROVIDER on 01-30-2025 RBC (Bld) [#/Vol] 5.61 10*6/uL 4.6-6.2 [facility] Serum creatinine measurement (mass/volume)Ordered By: Chapis Polo on 01-30-2025 Creatinine [Mass/Vol] 1.37 mg/dL High 0.70-1.20 [facility] Serum globulin measurementOr dered By: Chapis Polo on 01-30-2025 Globulin (S) [Mass/Vol] 2.9 g/dL 2.2-4.2 [facility] Serum glucose measurement (m ass/volume)Ordered By: Chapis Polo on 01-30-2025 Glucose [Mass/Vol] 143 mg/dL High 70-99 [facility] Serum or plasma alanine fuchs otransferase (ALT) measurementOrdered By: Chapis Polo on 01-30-2025 ALT [Catalytic activity/Vol] 31 U/L <47 [facility] Serum or plasma albumin peterson urement (mass/volume)Ordered By: Chapis Polo on 01-30-2025 Albumin [Mass/Vol] 4.3 g/dL 3.4-4.8 [facility] Serum or plasma alkaline miki sphatase measurementOrdered By: Chapis Polo on 01-30-2025 ALP [Catalytic activity/Vol] 62 U/L 40-129 [facility] Serum or plasma calcium peterson urement (mass/volume)Ordered By: Chapis Polo on 01-30-2025 Calcium [Mass/Vol] 9.5 mg/dL 7.6-11.0 [facility] Serum or plasma urea nitroge n measurement (mass/volume)Ordered By: Chapis Polo on 01-30-2025 Urea nitrogen [Mass/Vol] 14 mg/dL 4-19 [facility] Sodium levelOrdered By: Nahum Polo on 01-30-2025 Sodium [Moles/Vol] 141 mmol/L 133-145 [facility] Squamous epithelial cells de tection in urine sediment by light microscopyOrdered By: Chapis Polo on 01-30-2025 Epithelial cells.squamous LM Ql (Urine sed) 0 SEEN /hpf 0-5 [facility] Total proteinOrdered By: Olivia Polo on 01-30-2025 Protein [Mass/Vol] 7.2 g/dL 5.9-8.4 [facility] Troponin T HS 2 HRon 025 Trop T High Sen 29 ng/L High <=22 [facility] Comment on above: Performed By: #### L 100.0100, L500.2500 #### [facility] [address] [place], [place], [address] Troponin T HS 4 HRon 025 Trop T High Sen 30 ng/L High <=22 [facility] Comment on above: Performed By: #### L 499.0043 ####[facility] [address] [place], [place], [address] Troponin T.cardiac [Mass/vol ume] in Serum or Plasma by High sensitivity methodOrdered By: Chapis Polo on 01-30-2025 Troponin T.cardiac High sensitivity method [Mass/Vol] 30 ng/L High <22 [facility] Troponin T.cardiac High sensitivity method [Mass/Vol] 29 ng/L High <22 [facility] Troponin T.cardiac High sensitivity method [Mass/Vol] 31 ng/L High <22 [facility] Comment on above: Delta: 25 on 5-1055 Urinalysis, Completeon 01-30 BACTERIA 0 SEEN Normal None Seen [facility] Comment on above: Order Comment: CLEAN CATCH Performed By: #### L 499.0042 #### [facility] [address] [place], [place], [address] EPI,SQUAMOUS 0 SEEN Normal 0-5 [facility] Comment on above: Order Comment: CLEAN CATCH Performed By: #### L 499.0042 #### [facility] [address] [place], [place], [address] Mucus Ql (Urine sed) 0 SEEN Normal [facility] Comment on above: Order Comment: CLEAN CATCH Performed By: #### L 499.0042 #### [facility] [address] [facility] [address] RBC 0 SEEN Normal 0-5 [facility] Comment on above: Order Comment: CLEAN CATCH Performed By: #### L 499.0042 #### [facility] [address] [place], [address] WBC 0 SEEN Normal 0-5 [facility] Comment on above: Order Comment: CLEAN CATCH Performed By: #### L 499.0042 #### [facility] [address] [place], [place], [address] Urine clarityOrdered By: Olivia Polo on 01-30-2025 Clarity (U) Clear Clear [facility] Urine color determinationOrd ered By: Chapis Polo on 01-30-2025 Color (U) Yellow Yellow [facility] Urine glucose detectionOrder ed By: Chapis Polo on 01-30-2025 Glucose Ql (U) Normal mg/dl Normal [facility] Urine leukocyte esterase det ection by dipstickOrdered By: Chapis Polo on 01-30-2025 Leukocyte esterase Test strip Ql (U) Negative Negative [facility] Urine pHOrdered By: Chapis farris on 01-30-2025 pH (U) 7.0 [pH] 5.0 - 8.0 [facility] Urine sediment bacteria coun t by microscopy (number/high power field)Ordered By: Chapis Polo on 01-30-2025 Bacteria LM.HPF (Urine sed) [#/Area] 0 /[HPF] None Seen [facility] Urine specific gravity measu rementOrdered By: Chapis Polo on 01-30-2025 Specific gravity (U) [Rel density] 1.005 1.002-1.03 0 [facility] Urine urobilinogen measureme ntOrdered By: Chapis Polo on 01-30-2025 Urobilinogen Ql (U) Normal mg/dl Normal [facility] White blood cell (WBC) count Ordered By: ED PROVIDER on 01-30-2025 WBC (Bld) [#/Vol] 8.0 10*3/uL 4.4-11.0 [facility] White blood cell countOrdere d By: Chapis Polo on 01-30-2025 White blood cell count 0 SEEN /hpf 0-5 [facility] CNOVon 12-31-2024 CNOV Normal [facility] CBC W Auto Differential pane l (Bld)on 12-24-2024 Basophils (Bld) [#/Vol] [facility] Basophils/100 WBC (Bld) 0.3 % [facility] Differential cell count method Nom (Bld) Auto [facility] Eosinophils (Bld) [#/Vol] 0.03 10*3/uL [facility] Eosinophils/100 WBC (Bld) 0.5 % [facility] Erythrocyte distribution width (RBC) [Ratio] 12.9 % 11.5 - 15.0 % [facility] Hematocrit (Bld) [Volume fraction] 45.9 % 39.0 - 51.0 % [facility] Hemoglobin (Bld) [Mass/Vol] 15.6 g/dL 13.0 - 17.0 g/dL [facility] Immature granulocytes (Bld) [#/Vol] [facility] Immature granulocytes/100 WBC (Bld) 0.2 % [facility] Interpretation and review of laboratory results Abnormal [facility] Lymphocytes (Bld) [#/Vol] 0.95 10*3/uL Low [facility] Lymphocytes/100 WBC (Bld) 16.1 % [facility] MCH (RBC) [Entitic mass] 29.4 pg 26.0 - 34.0 pg [facility] MCHC (RBC) [Mass/Vol] 34 g/dL 30.5 - 36.0 g/dL [facility] MCV (RBC) [Entitic vol] 86.6 fL 80.0 - 100.0 fL [facility] Monocytes (Bld) [#/Vol] 0.4 10*3/uL [facility] Monocytes/100 WBC (Bld) 6.8 % [facility] Neutrophils (Bld) [#/Vol] 4.49 10*3/uL [facility] Neutrophils/100 WBC (Bld) 76.1 % [facility] Nucleated RBC (Bld) [#/Vol] NINF [facility] Nucleated RBC/100 WBC (Bld) [Ratio] 0 % /100 WBC [facility] Platelet mean volume (Bld) [Entitic vol] 12.1 fL 9.0 - 12.7 fL [facility] Platelets (Bld) [#/Vol] 177 10*3/uL [facility] RBC (Bld) [#/Vol] 5.3 10*6/uL 4.20 - 6.00 m/uL [facility] WBC (Bld) [#/Vol] 5.9 10*3/uL [facility] Basophils (Bld) [#/Vol] 10*3/uL Normal <0.11 [facility] Comment on above: Order Comment: Speci men Type: BLOOD SPECIMENOrdering Facility: [facility] Address: [address] [place] [address] Performed By: #### 5 7021-8 ####[facility] LABIA [id number] [place] [address] [place] Basophils/100 WBC (Bld) 0.3 % Normal [facility] Comment on above: Order Comment: Speci men Type: BLOOD SPECIMENOrdering Facility: [facility] Address: [address] [place] [address] Performed By: #### 5 7021-8 ####[facility] LABCLIA [id number] [place] [address] [place] Differential cell count method Nom (Bld) Auto Normal [facility] Comment on above: Order Comment: Speci men Type: BLOOD SPECIMENOrdering Facility: [facility] Address: [address] [place] [address] Performed By: #### 5 7021-8 ####[facility] LABCLIA [id number] [place] [address] [place] Eosinophils (Bld) [#/Vol] 0.03 10*3/uL Normal <0.46 [facility] Comment on above: Order Comment: Speci men Type: BLOOD SPECIMENOrdering Facility: [facility] Address: [address] [place] [address] Performed By: #### 5 7021-8 ####[facility] LABCLIA [id number] [facility] [place] [address] [place] Eosinophils/100 WBC (Bld) 0.5 % Normal [facility] Comment on above: Order Comment: Speci men Type: BLOOD SPECIMENOrdering Facility: [facility] Address: [address] [place] [address] Performed By: #### 5 7021-8 ####[facility] LABCLIA [id number] [facility] [address], [place] [address] [place] Erythrocyte distribution width (RBC) [Ratio] 12.9 % Normal 11.5-15.0 [facility] Comment on above: Order Comment: Speci men Type: BLOOD SPECIMENOrdering Facility: [facility] Address: [address] [place] [address] Performed By: #### 5 7021-8 ####[facility] LABCLIA [id number] [address] [place] Hematocrit (Bld) [Volume fraction] 45.9 % Normal 39.0-51.0 [facility] Comment on above: Order Comment: Speci men Type: BLOOD SPECIMENOrdering Facility: [facility] Address: [address] [place] [address] Performed By: #### 5 7021-8 ####[facility] LABCLIA [id number] [facility] [place] [id number] [place] Hemoglobin (Bld) [Mass/Vol] 15.6 g/dL Normal 13.0-17.0 [facility] Comment on above: Order Comment: Speci men Type: BLOOD SPECIMENOrdering Facility: [facility] Address: [address] [place] [address] Performed By: #### 5 7021-8 ####[facility] LABCLIA [id number] [place] [address] [place] Immature granulocytes (Bld) [#/Vol] 10*3/uL Normal <0.10 [facility] Comment on above: Order Comment: Speci men Type: BLOOD SPECIMENOrdering Facility: [facility] Address: [address] [place] [address] Performed By: #### 5 7021-8 ####[facility] LABCLIA [id number] [address], [place] [address] [place] Immature granulocytes/100 WBC (Bld) 0.2 % Normal [facility] Comment on above: Order Comment: Speci men Type: BLOOD SPECIMENOrdering Facility: [facility] Address: [address] [place] [address] Performed By: #### 5 7021-8 ####[facility] LABCLIA [id number] [place] [address] [place] Lymphocytes (Bld) [#/Vol] 0.95 10*3/uL Low 1.00-4.00 [facility] Comment on above: Order Comment: Speci men Type: BLOOD SPECIMENOrdering Facility: [facility] Address: [address] [place] [address] Performed By: #### 5 7021-8 ####[facility] LABCLIA [id number] [place] [address] [place] Lymphocytes/100 WBC (Bld) 16.1 % Normal [facility] Comment on above: Order Comment: Speci men Type: BLOOD SPECIMENOrdering Facility: [facility] Address: [address] [place] [address] Performed By: #### 5 7021-8 ####[facility] LABCLIA [id number] [place] [address] [place] MCH (RBC) [Entitic mass] 29.4 pg Normal 26.0-34.0 [facility] Comment on above: Order Comment: Speci men Type: BLOOD SPECIMENOrdering Facility: [facility] Address: [address] [place] [address] Performed By: #### 5 7021-8 ####[facility] LABCLIA [id number] [place] [address] [place] MCHC (RBC) [Mass/Vol] 34.0 g/dL Normal 30.5-36.0 [facility] Comment on above: Order Comment: Speci men Type: BLOOD SPECIMENOrdering Facility: [facility] Address: [address] [place] [address] Performed By: #### 5 7021-8 ####[facility] LABCLIA [id number] [place] [address] [place] MCV (RBC) [Entitic vol] 86.6 fL Normal 80.0-100.0 [facility] Comment on above: Order Comment: Speci men Type: BLOOD SPECIMENOrdering Facility: [facility] Address: [address] [place] [address] Performed By: #### 5 7021-8 ####[facility] LABIA [id number] [place] [address] [place] Monocytes (Bld) [#/Vol] 0.40 10*3/uL Normal <0.87 [facility] Comment on above: Order Comment: Speci men Type: BLOOD SPECIMENOrdering Facility: [facility] Address: [address] [place] [address] Performed By: #### 5 7021-8 ####[facility] LABCLIA [id number] [address] [place] Monocytes/100 WBC (Bld) 6.8 % Normal [facility] Comment on above: Order Comment: Speci men Type: BLOOD SPECIMENOrdering Facility: [facility] Address: [address] [place] [address] Performed By: #### 5 7021-8 ####[facility] LABCLIA [id number] [place] [address] [place] Neutrophils (Bld) [#/Vol] 4.49 10*3/uL Normal 1.45-7.50 [facility] Comment on above: Order Comment: Speci men Type: BLOOD SPECIMENOrdering Facility: [facility] Address: [address] [place] [address] Performed By: #### 5 7021-8 ####[facility] LABCLIA [id number] [place] [address] [place] Neutrophils/100 WBC (Bld) 76.1 % Normal [facility] Comment on above: Order Comment: Speci men Type: BLOOD SPECIMENOrdering Facility: [facility] Address: [address] [place] [address] Performed By: #### 5 7021-8 ####[facility] LABCLIA [id number] [place] [address] [place] Nucleated RBC (Bld) [#/Vol] 10*3/uL Normal <0.01 [facility] Comment on above: Order Comment: Speci men Type: BLOOD SPECIMENOrdering Facility: [facility] Address: [address] [place] [address] Performed By: #### 5 7021-8 ####[facility] LABCLIA [id number] [place] [address] [place] Nucleated RBC/100 WBC (Bld) [Ratio] 0.0 /100 WBC Normal [facility] Comment on above: Order Comment: Speci men Type: BLOOD SPECIMENOrdering Facility: [facility] Address: [address] [place] [address] Performed By: #### 5 7021-8 ####[facility] LABCLIA [id number] [address] [address] [place] Platelet mean volume (Bld) [Entitic vol] 12.1 fL Normal 9.0-12.7 [facility] Comment on above: Order Comment: Speci men Type: BLOOD SPECIMENOrdering Facility: [facility] Address: [address] [place] [address] Performed By: #### 5 7021-8 ####[facility] LABCLIA [id number] [address], [facility] [place] Platelets (Bld) [#/Vol] 177 10*3/uL Normal 150-400 [facility] Comment on above: Order Comment: Speci men Type: BLOOD SPECIMENOrdering Facility: [facility] Address: [address] [place] [address] Performed By: #### 5 7021-8 ####[facility] LABCLIA [id number] [place] [id number] [place] RBC (Bld) [#/Vol] 5.30 10*6/uL Normal 4.20-6.00 [facility] Comment on above: Order Comment: Speci men Type: BLOOD SPECIMENOrdering Facility: [facility] Address: [address] [place] [address] Performed By: #### 5 7021-8 ####[facility] LABIA [id number] [address], [facility] [place] WBC (Bld) [#/Vol] 5.90 10*3/uL Normal 3.70-11.00 [facility] Comment on above: Order Comment: Speci men Type: BLOOD SPECIMENOrdering Facility: [facility] Address: [address] [place] [address] Performed By: #### 5 7021-8 ####[facility] LABCLIA [id number] [address] [place] [address] [place] CNOVon 12-24-2024 CNOV Normal [facility] CNPNon 12-24-2024 CNPN Normal [facility] Cardiology Visit Reporton Cardiology Visit Report [facility] 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 Normal [facility] Cardiovascular stress test r eportOrdered By: Denise Haywood on 11-21-2024 Study report [facility] [address] [place] [address] MR#: [id number] Acct: [id number] Name: JERO GARZON Rep #: [id number] : 1955 69 From: Denise webber MD Primary Care: Dr. Chloe Cheema MD Status : REG CLI Referring [...] is 65%. This note was generated with virtual tweens ltdation software. It may contain incorrectwords, spelling, and punctuation that were not noted in checking the note beforesigning. 11/21/24 1421 Date _ Denise Haywood MD CC: Dr. Karl Vo MD; Dr. Chloe Cheema MD ~ Date Dictated: 11/21/24 1414 Date Transcribed: 11/21/24 141 Coding Spec: NN Signed [facility] Work Phone: Stress Reporton 11-21-2024 Stress Report [facility] [address] [place] [address] MR#: [id number] Acct: [id number] Name: DURANJERO ARIAS Rep #: [id number] : 1955 69 From: Denise Haywood MD Primary Care: Dr. Chloe Cheema MD Status: REG CLI Referring Dr: [...] is 65%. This note was generated with virtual tweens ltdation software. It may contain incorrect words, spelling, and punctuation that were not noted in checking the note before signing. 11/21/24 1421 Date Denise Haywood MD CC: Dr. Karl Vo MD; Dr. Chloe Cheema MD Date Dictated: 11/21/241413 Date Transcribed: 11/21/241413 Coding Spec: GLENYS Signed [facility] 12 Lead EKGon 11-20-2024 12 Lead EKG [facility] [address] [place] [address] 12 Lead EKG 11/20/24 1035 MR#: [id number] Acct: [id number] Name: JERO GARZON Rep #: [id number] : 1955 69 From: Denise Haywood MD [...] Abnormal ECG Confirmed by YOBANY CONTI, JEN ([id number]), editor in chief LATISHA HECK ([id number]) on 11/25/2024 7:10:49 AM Referred By: BB/UG Confirmed By: JEN HAYWOOD MD 11/25/24 0710 Date Denise Haywood MD CC: Dr. Jose Alberto Contreras MD; Dr. Chloe Cheema MD Signed [facility] Absolute lymphocyte countOrd ered By: Jose Alberto Contreras on 11-20-2024 Lymphocytes Auto (Unsp spec) [#/Vol] 0.75 10*3/uL Low 0.83-4.51 [facility] Absolute neutrophil countOrd ered By: Jose Alberto Contreras on 11-20-2024 Neutrophils (Bld) [#/Vol] 5.3 10*3/uL 2.0-7.7 [facility] Anion gap in Serum or Plasma Ordered By: Jose Alberto Contreras on 11-20-2024 Anion gap [Moles/Vol] 12 mmol/L 5-15 [facility] Automated lymphocyte count a s percentage of total leukocytesOrdered By: Jose Alberto Contreras on 11-20-2024 Lymphocytes/100 WBC Auto (Unsp spec) 11.7 % Low 19-41 [facility] BUN/creatinine ratioOrdered By: Jose Alberto Contreras on 11-20-2024 Urea nitrogen/Creatinine [Mass ratio] 18.9 mg/mg 10- [facility] Basic Metabolic Profile (BMP )on 11-20-2024 BUN/CRE 18.9 RATIO Normal - [facility] Comment on above: Performed By: #### L 100.0100, L500.2500 #### [facility] [address] [place], [address] Calcium [Mass/Vol] 9.2 mg/dL Normal 7.6-11.0 [facility] Comment on above: Performed By: #### L 100.0100, L500.2500 #### [facility] [address] [place], [address] Chloride [Moles/Vol] 106 mmol/L Normal 98-108 [facility] Comment on above: Performed By: #### L 100.0100, L500.2500 #### [facility] [address] [place], [address] CO2 [Moles/Vol] 21.6 mmol/L Normal 21.0-32.0 [facility] Comment on above: Performed By: #### L 100.0100, L500.2500 #### [facility] [address] [place], [address] Creatinine [Mass/Vol] 1.22 mg/dL High 0.70-1.20 [facility] Comment on above: Performed By: #### L 100.0100, L500.2500 #### [facility] [address] [place], [address] ECRCL 95.39 ml/min Normal 50-250 [facility] Comment on above: Performed By: #### L 100.0100, L500.2500 #### [facility] [address] [place], [address] GAP 12 Normal 5-15 [facility] Comment on above: Performed By: #### L 100.0100, L500.2500 #### [facility] [address] [place], [address] GFR/1.73 sq M.predicted among non-blacks MDRD (S/P/Bld) [Vol rate/Area] 65 mL/min/{1.73_m2} Normal >60 [facility] Comment on above: Result Comment: mL/m in/1.73m2 CKD-EPI Creatinine Equation (2020) Performed By: #### L 100.0100, L500.2500 #### [facility] [address] [place], [address] Glucose [Mass/Vol] 156 mg/dL High 70-99 [facility] Comment on above: Performed By: #### L 100.0100, L500.2500 #### [facility] [address] [place], [address] Potassium [Moles/Vol] 3.8 mmol/L Normal 3.3-5.1 [facility] Comment on above: Performed By: #### L 100.0100, L500.2500 #### [facility] [address] [place], [address] Sodium [Moles/Vol] 140 mmol/L Normal 133-145 [facility] Comment on above: Performed By: #### L 100.0100, L500.2500 #### [facility] [address] [place], [address] Urea nitrogen [Mass/Vol] 23 mg/dL High 4-19 [facility] Comment on above: Performed By: #### L 100.0100, L500.2500 #### [facility] [address] [place], [address] Basophil percentageOrdered B y: Jose Alberto Contreras on 11-20-2024 Basophils/100 WBC (Bld) 0.5 % 0-1 [facility] CBC W/Diff, Automatedon Absolute Lymph 0.75 X10 3/uL Low 0.83-4.51 [facility] Comment on above: Performed By: #### L 100.0100, L500.2500 #### [facility] [address] [place], [address] Absolute Neut 5.3 X10 3/uL Normal 2.0-7.7 [facility] Comment on above: Performed By: #### L 100.0100, L500.2500 #### [facility] [address] [place], [address] Basophils/100 WBC (Bld) 0.5 % Normal 0-1 [facility] Comment on above: Performed By: #### L 100.0100, L500.2500 #### [facility] [address] [place], [address] Eosinophils/100 WBC (Bld) 0.2 % Normal 0-5 [facility] Comment on above: Performed By: #### L 100.0100, L500.2500 #### [facility] [address] [place], [address] Erythrocyte distribution width (RBC) [Ratio] 14.4 % Normal 11.6-14.6 [facility] Comment on above: Performed By: #### L 100.0100, L500.2500 #### [facility] [address] [place], [address] Hematocrit (Bld) [Volume fraction] 44.4 % Normal 40-54 [facility] Comment on above: Performed By: #### L 100.0100, L500.2500 #### [facility] [address] [place], [address] Hemoglobin (Bld) [Mass/Vol] 15.4 g/dL Normal 13.0-16.5 [facility] Comment on above: Performed By: #### L 100.0100, L500.2500 #### [facility] [address] [place], [address] IG% 0.500 Normal 0.0-0.9 [facility] Comment on above: Result Comment: IG% - Immature Granulocytes (promyelocytes, myelocytes and metamyelocytes) > 1% indicates that a LEFT SHIFT is Present. Performed By: #### L 100.0100, L500.2500 #### [facility] [address] [place], [address] Lymphocytes/100 WBC (Bld) 11.7 % Low 19-41 [facility] Comment on above: Performed By: #### L 100.0100, L500.2500 #### [facility] [address] [place], [address] MCH (RBC) [Entitic mass] 29.7 pg Normal 27.0-32.0 [facility] Comment on above: Performed By: #### L 100.0100, L500.2500 #### [facility] [address] [place], [address] MCHC (RBC) [Mass/Vol] 34.7 g/dL Normal 32-36 [facility] Comment on above: Performed By: #### L 100.0100, L500.2500 #### [facility] [address] [place], [address] MCV (RBC) [Entitic vol] 85.5 fL Normal 80-94 [facility] Comment on above: Performed By: #### L 100.0100, L500.2500 #### [facility] [address] [place], [address] Monocytes/100 WBC (Bld) 4.4 % Normal 0-10 [facility] Comment on above: Performed By: #### L 100.0100, L500.2500 #### [facility] [address] [place], [address] Neutrophils/100 WBC (Bld) 82.7 % High 47-70 [facility] Comment on above: Performed By: #### L 100.0100, L500.2500 #### [facility] [address] [place], [address] Nucleated RBC (Bld) [#/Vol] 0 10*3/uL Normal 0-5 [facility] Comment on above: Performed By: #### L 100.0100, L500.2500 #### [facility] [address] [place], [address] Platelet mean volume (Bld) [Entitic vol] 11.2 fL Normal 6.2-12.0 [facility] Comment on above: Performed By: #### L 100.0100, L500.2500 #### [facility] [address] [place], [address] Platelets (Bld) [#/Vol] 160 10*3/uL Normal 150-450 [facility] Comment on above: Performed By: #### L 100.0100, L500.2500 #### [facility] [address] [place], [address] RBC (Bld) [#/Vol] 5.19 10*6/uL Normal 4.6-6.2 [facility] Comment on above: Performed By: #### L 100.0100, L500.2500 #### [facility] [address] [place], [address] RDW SD 45.0 fl High 35.1-43.9 [facility] Comment on above: Performed By: #### L 100.0100, L500.2500 #### [facility] [address] [place], [address] WBC (Bld) [#/Vol] 6.4 10*3/uL Normal 4.4-11.0 [facility] Comment on above: Performed By: #### L 100.0100, L500.2500 #### [facility] [address] [place], [address] Carbon dioxide, total [Moles /volume] in Central venous bloodOrdered By: Jose Alberto Contreras on 11-20-2024 CO2 [Moles/Vol] 21.6 mmol/L 21.0-32.0 [facility] Chest PA and Lateralon 11-20 Chest PA and Lateral [facility] Imaging Services [address] [place] [address] Chest PA and Lateral MR#: [id number] Acct: [id number] Name: JERO GARZON Rep #: [id number] : 1955 M 69 From: Noe Noel MD PCP: Dr. Chloe Cheema MD Status: [facility] Study: Chest PA and Lateral Date of Exam: 11/20/24 Exam# [id number] Ordering Dr: Jose Alberto Contreras MD PROCEDURE: [...] evidence of acute cardiopulmonary pathology. Reading Location: [id number] CC: Dr. Jose Alberto Contreras MD; Dr. Chloe Cheema MD Coding Spec: Signed Normal [facility] Chloride assayOrdered By: Nola Contreras on 11-20-2024 Chloride [Moles/Vol] 106 mmol/L 98-108 [facility] D-Dimer Quantitative (DVT/PE )on 11-20-2024 D-DIMER QUANT 0.30 FEU/ug/m Normal 0.27-0.49 [facility] Comment on above: Result Comment: NORM AL D-Dimer level (<0.50) indicates no DVT or PE. Performed By: #### L 100.0100, L500.2500 #### [facility] [address] [facility] [place], [address] Emergency Department Summary on 11-20-2024 Emergency Department Summary [facility] Medical Records Department [address] [place] [address] Emergency Department Summary 11/20/24 MR#: [id number] Acct: [id number] Name: JERO GARZON Rep #: [id number] : 1955 69 From: Jose Alberto Contreras MD PCP: Dr. Chloe Cheema MD Status:REG ER Location: ED HPI [...] or orthopnea. 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 [facility] Medical History History of cardioversion First degree [...] disease) Essential hypertension Atherosclerotic heart disease of [place] coronary artery without angina pectoris Confusion Unstable [...] Social H (more content not included)... Normal [facility] Eosinophil percentageOrdered By: Jose Alberto Contreras on 11-20-2024 Eosinophils/100 WBC (Bld) 0.2 % 0-5 [facility] Erythrocyte distribution wid th ratioOrdered By: Jose Alberto Contreras on 11-20-2024 Erythrocyte distribution width (RBC) [Ratio] 14.4 % 11.6-14.6 [facility] Erythrocyte distribution wid th standard deviationOrdered By: Jose Alberto Contreras on 11-20-2024 Erythrocyte distribution width (RBC) [Ratio] 45.0 fl High 35.1-43.9 [facility] Glomerular filtration rate ( GFR) estimation/1.73 sq m using serum, plasma, or whole bOrdered By: Jose Alberto Contreras on 11-20-2024 GFR/1.73 sq M.predicted among non-blacks MDRD (S/P/Bld) [Vol rate/Area] 65 mL/min/{1.73_m2} >60 [facility] Comment on above: mL/min/1.73m2 CKD-EP I Creatinine Equation (2020) Hematocrit Auto (Bld) [Volum e fraction]Ordered By: Jose Alberto Contreras on 11-20-2024 Hematocrit (Bld) [Volume fraction] 44.4 % 40-54 [facility] Hemoglobin measurementOrdere d By: Jose Alberto Contreras on 11-20-2024 Hemoglobin (Bld) [Mass/Vol] 15.4 g/dL 13.0-16.5 [facility] Immature granulocytes/100 WB C Auto (Bld)Ordered By: Jose Alberto Contreras on 11-20-2024 Immature granulocytes/100 WBC (Bld) 0.500 % 0.0-0.9 [facility] Comment on above: IG% - Immature Granu locytes (promyelocytes, myelocytes and metamyelocytes) > 1% indicates that a LEFT SHIFT is Present. L499.0042on 11-20-2024 Trop T High Sen 20 ng/L Normal <=22 [facility] Comment on above: Performed By: #### L 499.0042 #### [facility] [address] [place], [address] L499.0043on 11-20-2024 Trop T High Sen Normal <=22 [facility] Comment on above: Result Comment: Canc elled via OM: Order cancelled - Patient discharged Performed By: #### L 499.0043 ####[facility] [address] [place], [address] L501.4021on 11-20-2024 Trop T High Sen 25 ng/L High <=22 [facility] Comment on above: Performed By: #### L 501.4021, L503.7505 ####[facility] [address] [place], [address] L503.7505on 11-20-2024 Natriuretic peptide B (Bld) [Mass/Vol] 143 pg/mL Normal <=900 [facility] Comment on above: Result Comment: Hear t Failure Unlikely: < 300 pg/mL Heart Failure Likely < 50 Years: > 450 pg/mL 50-75 Years: > 900 pg/mL >75 Years: > 1800 pg/mL Performed By: #### L 501.4021, L503.7505 ####[facility] [address] [place], [address] MCV (mean corpuscular volume ) determinationOrdered By: Jose Alberto Contreras on 11-20-2024 MCV (RBC) [Entitic vol] 85.5 fL 80-94 [facility] Mean corpuscular hemoglobin (MCH) determinationOrdered By: Jose Alberto Contreras on 11-20-2024 MCH (RBC) [Entitic mass] 29.7 pg 27.0-32.0 [facility] Mean corpuscular hemoglobin concentration (MCHC) determinationOrdered By: Jose Alberto Contreras on 11-20-2024 MCHC (RBC) [Mass/Vol] 34.7 g/dL 32-36 [facility] Mean platelet volume determi nationOrdered By: Jose Alberto Contreras on 11-20-2024 Platelet mean volume (Bld) [Entitic vol] 11.2 fL 6.2-12.0 [facility] Monocyte percentageOrdered B y: Jose Alberto Contreras on 11-20-2024 Monocytes/100 WBC (Bld) 4.4 % 0-10 [facility] Natriuretic peptide.B prohor madeleine N-Terminal [Mass/volume] in Serum or PlasmaOrdered By: Jose Alberto Contreras on 11-20-2024 Natriuretic peptide.B prohormone N-Terminal [Mass/Vol] 143 pg/mL <900 [facility] Comment on above: Heart Failure Unlike ly: < 300 pg/mLHeart Failure Likely< 50 Years: > 450 pg/mL50-75 Years: > 900 pg/mL>75 Years: > 1800 pg/mL Neutrophil percentageOrdered By: Jose Alberto Contreras on 11-20-2024 Neutrophils/100 WBC (Bld) 82.7 % High 47-70 [facility] Nucleated red blood cell per centageOrdered By: Jose Alberto Contreras on 11-20-2024 Nucleated RBC/100 WBC (Bld) [Ratio] 0 % 0-5 [facility] Platelet countOrdered By: Nola Contreras on 11-20-2024 Platelets (Bld) [#/Vol] 160 10*3/uL 150-450 [facility] Potassium measurement (mass/ volume)Ordered By: Jose Alberto Contreras on 11-20-2024 Potassium (Unsp spec) [Mass/Vol] 3.8 mmol/L 3.3-5.1 [facility] RBC Auto (Bld) [#/Vol]Ordere d By: Jose Alberto Contreras on 11-20-2024 RBC (Bld) [#/Vol] 5.19 10*6/uL 4.6-6.2 [facility] Serum creatinine measurement (mass/volume)Ordered By: Jose Alberto Contreras on 11-20-2024 Creatinine [Mass/Vol] 1.22 mg/dL High 0.70-1.20 [facility] Serum glucose measurement (m ass/volume)Ordered By: Jose Alberto Contreras on 11-20-2024 Glucose [Mass/Vol] 156 mg/dL High 70-99 [facility] Serum or plasma calcium peterson urement (mass/volume)Ordered By: Jose Alberto Contreras on 11-20-2024 Calcium [Mass/Vol] 9.2 mg/dL 7.6-11.0 [facility] Serum or plasma urea nitroge n measurement (mass/volume)Ordered By: Jose Alberto Contreras on 11-20-2024 Urea nitrogen [Mass/Vol] 23 mg/dL High 4-19 [facility] Sodium levelOrdered By: Miki Contreras on 11-20-2024 Sodium [Moles/Vol] 140 mmol/L 133-145 [facility] Troponin T.cardiac [Mass/vol ume] in Serum or Plasma by High sensitivity methodOrdered By: Jose Alberto Contreras on 11-20-2024 Troponin T.cardiac High sensitivity method [Mass/Vol] 20 ng/L <22 [facility] Troponin T.cardiac High sensitivity method [Mass/Vol] 25 ng/L High <22 [facility] White blood cell (WBC) count Ordered By: Jose Alberto Contreras on 11-20-2024 WBC (Bld) [#/Vol] 6.4 10*3/uL 4.4-11.0 [facility] CNOVon 11-18-2024 CNOV Normal [facility] XR CHEST 2V FRONTAL/LATon XR CHEST 2V FRONTAL/LAT Normal [facility] XR Chest PA and Lateralon IMPRESSION: No acute radiographic abnormality. Coding Spec: OSMANI Transcribe Date/Time: Nov 18 2024 1:08P Dictated by : LETTY THOMAS MD This examination was interpreted and the report reviewed and electronically signed by: LETTY THOMAS MD on Nov 18 2024 1:09PM [facility] DIVISION OF RADIOLOGY * * *Final [...] in the spine. DIVISION OF RADIOLOGY Provider, [facility] [place] - 11/18/2024 * * *Final Report* * [...] spine. IMPRESSION IMPRESSION: No acute radiographic abnormality. Coding Spec: OSMANI Transcribe Date/Time: Nov 18 2024 1:08P Dictated by : ELTTY THOMAS MD This examination was interpreted and the report reviewed and electronically signed by: LETTY THOMAS MD on Nov 18 2024 1:09PM EST [facility] Radiology Study observation (narrative) [facility] XR Chest PA and LateralOrder ed By: [facility] Provider on 11-18-2024 [facility] Abdomen/Pelvis W IV Cont ONL Yon 10-28-2024 Abdomen/Pelvis W IV Cont ONLY [facility] Imaging Services [address] [place] [address] Abdomen/Pelvis W IV Cont ONLY MR#: [id number] Acct: [id number] Name: JERO GARZON Rep #: [id number] : 1955 M 69 From: Paul perdomo MD PCP: Dr. Chloe Cheema MD Status: REG ER Study: Abdomen/Pelvis W IV Cont ONLY Date of Exam: Exam# [id number] Ordering Dr: Wendy Mclaughlin DO PROCEDURE: ABDOMEN/PELVIS W IV CONT [...] lower chance of developing HCC. Reading Location: [id number] CC: Dr. Wendy Mclaughlin DO; Dr. Chloe Cheema MD Coding Spec: Signed Normal [facility] Absolute lymphocyte countOrd ered By: Wendy Mclaughlin on 10-28-2024 Lymphocytes Auto (Unsp spec) [#/Vol] 0.92 10*3/uL 0.83-4.51 [facility] Absolute neutrophil countOrd ered By: Wendy Mclaughlin on 10-28-2024 Neutrophils (Bld) [#/Vol] 2.8 10*3/uL 2.0-7.7 [facility] Anion gap in Serum or Plasma Ordered By: Wendy Mclaughlin on 10-28-2024 Anion gap [Moles/Vol] 9 mmol/L - [facility] Automated lymphocyte count a s percentage of total leukocytesOrdered By: Wendy Mclaughlin on 10-28-2024 Lymphocytes/100 WBC Auto (Unsp spec) 22.3 % - [facility] BUN/creatinine ratioOrdered By: Wendy Mclaughlin on 10-28-2024 Urea nitrogen/Creatinine [Mass ratio] 15.9 mg/mg - [facility] Basic Metabolic Profile (BMP )on 10-28-2024 BUN/CRE 15.9 RATIO Normal 04-07 [facility] Comment on above: Performed By: #### L 500.3400, L100.0100, L501.2450, L500.2500 #### [facility] [address] [place], [address] Calcium [Mass/Vol] 8.4 mg/dL Normal 7.6-11.0 [facility] Comment on above: Performed By: #### L 500.3400, L100.0100, L501.2450, L500.2500 #### [facility] [address] [place], [address] Chloride [Moles/Vol] 108 mmol/L Normal 98-108 [facility] Comment on above: Performed By: #### L 500.3400, L100.0100, L501.2450, L500.2500 #### [facility] [address] [place], [address] CO2 [Moles/Vol] 24.2 mmol/L Normal 21.0-32.0 [facility] Comment on above: Performed By: #### L 500.3400, L100.0100, L501.2450, L500.2500 #### [facility] [address] [place], [address] Creatinine [Mass/Vol] 0.93 mg/dL Normal 0.70-1.20 [facility] Comment on above: Performed By: #### L 500.3400, L100.0100, L501.2450, L500.2500 #### [facility] [address] [place], [address] ECRCL 125.79 ml/min Normal 50-250 [facility] Comment on above: Performed By: #### L 500.3400, L100.0100, L501.2450, L500.2500 #### [facility] [address] [place], [address] GAP 9 Normal 5-15 [facility] Comment on above: Performed By: #### L 500.3400, L100.0100, L501.2450, L500.2500 #### [facility] [address] [place], [address] GFR/1.73 sq M.predicted among non-blacks MDRD (S/P/Bld) [Vol rate/Area] 90 mL/min/{1.73_m2} Normal >60 [facility] Comment on above: Result Comment: mL/m in/1.73m2 CKD-EPI Creatinine Equation (2020) Performed By: #### L 500.3400, L100.0100, L501.2450, L500.2500 #### [facility] [address] [place], [address] Glucose [Mass/Vol] 119 mg/dL High 70-99 [facility] Comment on above: Performed By: #### L 500.3400, L100.0100, L501.2450, L500.2500 #### [facility] [address] [place], [address] Potassium [Moles/Vol] 3.7 mmol/L Normal 3.3-5.1 [facility] Comment on above: Performed By: #### L 500.3400, L100.0100, L501.2450, L500.2500 #### [facility] [address] [place], [address] Sodium [Moles/Vol] 141 mmol/L Normal 133-145 [facility] Comment on above: Performed By: #### L 500.3400, L100.0100, L501.2450, L500.2500 #### [facility] [address] [place], [address] Urea nitrogen [Mass/Vol] 15 mg/dL Normal 4-19 [facility] Comment on above: Performed By: #### L 500.3400, L100.0100, L501.2450, L500.2500 #### [facility] [address] [place], [address] Basophil percentageOrdered B y: Wendy Arnoldo on 10-28-2024 Basophils/100 WBC (Bld) 0.5 % 0-1 [facility] Bilirubin Test strip Ql (U)O rdered By: Wendy Hillehne on 10-28-2024 Bilirubin Ql (U) Negative Negative [facility] Bilirubin directOrdered By: Wendy Mclaughlin on 10-28-2024 Bilirubin.direct [Mass/Vol] 0.25 mg/dL 0.00-0.30 [facility] Bilirubin, totalOrdered By: Wendy Mclaughlin on 10-28-2024 Bilirubin [Mass/Vol] 0.62 mg/dL 0.00-1.30 [facility] CBC W/Diff, Automatedon 10-17 Absolute Lymph 0.92 X10 3/uL Normal 0.83-4.51 [facility] Comment on above: Performed By: #### L 500.3400, L100.0100, L501.2450, L500.2500 #### [facility] [address] [place], [address] Absolute Neut 2.8 X10 3/uL Normal 2.0-7.7 [facility] Comment on above: Performed By: #### L 500.3400, L100.0100, L501.2450, L500.2500 #### [facility] [address] [place], [address] Basophils/100 WBC (Bld) 0.5 % Normal 0-1 [facility] Comment on above: Performed By: #### L 500.3400, L100.0100, L501.2450, L500.2500 #### [facility] [address] [place], [address] Eosinophils/100 WBC (Bld) 1.2 % Normal 0-5 [facility] Comment on above: Performed By: #### L 500.3400, L100.0100, L501.2450, L500.2500 #### [facility] [address] [place], [address] Erythrocyte distribution width (RBC) [Ratio] 14.2 % Normal 11.6-14.6 [facility] Comment on above: Performed By: #### L 500.3400, L100.0100, L501.2450, L500.2500 #### [facility] [address] [place], [address] Hematocrit (Bld) [Volume fraction] 40.7 % Normal 40-54 [facility] Comment on above: Performed By: #### L 500.3400, L100.0100, L501.2450, L500.2500 #### [facility] [address] [place], [address] Hemoglobin (Bld) [Mass/Vol] 14.1 g/dL Normal 13.0-16.5 [facility] Comment on above: Performed By: #### L 500.3400, L100.0100, L501.2450, L500.2500 #### [facility] [address] [place], [address] IG% 0.200 Normal 0.0-0.9 [facility] Comment on above: Result Comment: IG% - Immature Granulocytes (promyelocytes, myelocytes and metamyelocytes) > 1% indicates that a LEFT SHIFT is Present. Performed By: #### L 500.3400, L100.0100, L501.2450, L500.2500 #### [facility] [address] [place], [address] Lymphocytes/100 WBC (Bld) 22.3 % Normal 19-41 [facility] Comment on above: Performed By: #### L 500.3400, L100.0100, L501.2450, L500.2500 #### [facility] [address] [place], [address] MCH (RBC) [Entitic mass] 29.7 pg Normal 27.0-32.0 [facility] Comment on above: Performed By: #### L 500.3400, L100.0100, L501.2450, L500.2500 #### [facility] [address] [place], [address] MCHC (RBC) [Mass/Vol] 34.6 g/dL Normal 32-36 [facility] Comment on above: Performed By: #### L 500.3400, L100.0100, L501.2450, L500.2500 #### [facility] [address] [place], [address] MCV (RBC) [Entitic vol] 85.7 fL Normal 80-94 [facility] Comment on above: Performed By: #### L 500.3400, L100.0100, L501.2450, L500.2500 #### [facility] [address] [place], [address] Monocytes/100 WBC (Bld) 8.3 % Normal 0-10 [facility] Comment on above: Performed By: #### L 500.3400, L100.0100, L501.2450, L500.2500 #### [facility] [address] [place], [address] Neutrophils/100 WBC (Bld) 67.5 % Normal 47-70 [facility] Comment on above: Performed By: #### L 500.3400, L100.0100, L501.2450, L500.2500 #### [facility] [address] [place], [address] Nucleated RBC (Bld) [#/Vol] 0 10*3/uL Normal 0-5 [facility] Comment on above: Performed By: #### L 500.3400, L100.0100, L501.2450, L500.2500 #### [facility] [address] [place], [address] Platelet mean volume (Bld) [Entitic vol] 10.7 fL Normal 6.2-12.0 [facility] Comment on above: Performed By: #### L 500.3400, L100.0100, L501.2450, L500.2500 #### [facility] [address] [place], [address] Platelets (Bld) [#/Vol] 147 10*3/uL Low 150-450 [facility] Comment on above: Performed By: #### L 500.3400, L100.0100, L501.2450, L500.2500 #### [facility] [address] [place], [address] RBC (Bld) [#/Vol] 4.75 10*6/uL Normal 4.6-6.2 [facility] Comment on above: Performed By: #### L 500.3400, L100.0100, L501.2450, L500.2500 #### [facility] [address] [place], [address] RDW SD 43.7 fl Normal 35.1-43.9 [facility] Comment on above: Performed By: #### L 500.3400, L100.0100, L501.2450, L500.2500 #### [facility] [address] [place], [address] WBC (Bld) [#/Vol] 4.1 10*3/uL Low 4.4-11.0 [facility] Comment on above: Performed By: #### L 500.3400, L100.0100, L501.2450, L500.2500 #### [facility] [address] [place], [address] Carbon dioxide, total [Moles /volume] in Central venous bloodOrdered By: Wendy Mclaughlin on 10-28-2024 CO2 [Moles/Vol] 24.2 mmol/L 21.0-32.0 [facility] Chloride assayOrdered By: Babak Mclaughlin on 10-28-2024 Chloride [Moles/Vol] 108 mmol/L 98-108 [facility] Summary on 10-28-2024 Emergency Department Summary [facility] Medical Records Department [address] [place] [address] Emergency Department Summary 10/28/24 MR#: [id number] Acct: [id number] Name: JERO GARZON Rep #: [id number] : 1955 69 From: Wendy Mclaughlin DO PCP: Dr. Chloe Cheema MD Status:DEP ER Location: ED HPI [...] had a colonoscopy in the past at [facility]. He states he has a history of diverticulosis. He is not currently on blood thinners does take baby aspirin. [facility] Medical History History of cardioversion First degree [...] disease) Essential hypertension Atherosclerotic heart disease of [place] coronary artery without angina pectoris Confusion Unstable [...] caffeine: Yes (more content not included)... Normal [facility] Eosinophil percentageOrdered By: Wendy Mclaughlin on 10-28-2024 Eosinophils/100 WBC (Bld) 1.2 % 0-5 [facility] Erythrocyte distribution wid th ratioOrdered By: Wendy Mclaughlin on 10-28-2024 Erythrocyte distribution width (RBC) [Ratio] 14.2 % 11.6-14.6 [facility] Erythrocyte distribution wid th standard deviationOrdered By: Wendy Mclaughlin on 10-28-2024 Erythrocyte distribution width (RBC) [Ratio] 43.7 fl 35.1-43.9 [facility] Glomerular filtration rate ( GFR) estimation/1.73 sq m using serum, plasma, or whole bOrdered By: Wendy Mclaughlin on 10-28-2024 GFR/1.73 sq M.predicted among non-blacks MDRD (S/P/Bld) [Vol rate/Area] 90 mL/min/{1.73_m2} >60 [facility] Comment on above: mL/min/1.73m2 CKD-EP I Creatinine Equation (2020) Hematocrit Auto (Bld) [Volum e fraction]Ordered By: Wendy Mclaughlin on 10-28-2024 Hematocrit (Bld) [Volume fraction] 40.7 % 40-54 [facility] Hemoglobin measurementOrdere d By: Wendy Mclaughlin on 10-28-2024 Hemoglobin (Bld) [Mass/Vol] 14.1 g/dL 13.0-16.5 [facility] Immature granulocytes/100 WB C Auto (Bld)Ordered By: Wendy Mclaughlin on 10-28-2024 Immature granulocytes/100 WBC (Bld) 0.200 % 0.0-0.9 [facility] Comment on above: IG% - Immature Granu locytes (promyelocytes, myelocytes and metamyelocytes) > 1% indicates that a LEFT SHIFT is Present. Ketones Test strip Ql (U)Ord ered By: Wendy Mclaughlin on 10-28-2024 Ketones Ql (U) Negative Negative [facility] - Chemistry and C hemistry - challengeOrdered By: Wendy Mclaughlin on 10-28-2024 AST [Catalytic activity/Vol] 30 U/L <38 [facility] Lipaseon 10-28-2024 Lipase [Catalytic activity/Vol] 33 U/L Normal 13-75 [facility] Comment on above: Result Comment: Godwin marquez note: LIPASE revised reference range effective 22. New Lipase methodology. Expected to produce lower values than the previous assay method. NEW Reference Range: 13 - 75 U/L Performed By: #### L 500.3400, L100.0100, L501.2450, L500.2500 #### [facility] [address] [facility] [place], [address] Lipase measurementOrdered By : Wendy Mclaughlin on 10-28-2024 Lipase [Catalytic activity/Vol] 33 U/L 13-75 [facility] Comment on above: Please note:LIPASE r evised reference range effective 22. New Lipase methodology. Expected to produce lower values than the previous assay method. NEW Reference Range: 13 - 75 U/L Liver Profileon 10-28-2024 Albumin [Mass/Vol] 4.1 g/dL Normal 3.4-4.8 [facility] Comment on above: Performed By: #### L 500.3400, L100.0100, L501.2450, L500.2500 #### [facility] [address] [place], [address] ALK PHOS 67 U/L Normal 40-129 [facility] Comment on above: Performed By: #### L 500.3400, L100.0100, L501.2450, L500.2500 #### [facility] [address] [place], [address] ALT [Catalytic activity/Vol] 36 U/L Normal <=46 [facility] Comment on above: Performed By: #### L 500.3400, L100.0100, L501.2450, L500.2500 #### [facility] [address] [place], [address] AST [Catalytic activity/Vol] 30 U/L Normal <=37 [facility] Comment on above: Performed By: #### L 500.3400, L100.0100, L501.2450, L500.2500 #### [facility] [address] [place], [address] Bilirubin [Mass/Vol] 0.62 mg/dL Normal 0.00-1.30 [facility] Comment on above: Performed By: #### L 500.3400, L100.0100, L501.2450, L500.2500 #### [facility] [address] [place], [address] Bilirubin.direct [Mass/Vol] 0.25 mg/dL Normal 0.00-0.30 [facility] Comment on above: Performed By: #### L 500.3400, L100.0100, L501.2450, L500.2500 #### [facility] [address] [place], [address] Globulin (S) [Mass/Vol] 2.5 g/dL Normal 2.2-4.2 [facility] Comment on above: Performed By: #### L 500.3400, L100.0100, L501.2450, L500.2500 #### [facility] [address] [place], [address] T PROT 6.6 g/dL Normal 5.9-8.4 [facility] Comment on above: Performed By: #### L 500.3400, L100.0100, L501.0130, L500.4454 #### [facility] [address] [place], [address] MCV (mean corpuscular volume ) determinationOrdered By: Wendy Mclaughlin on 10-28-2024 MCV (RBC) [Entitic vol] 85.7 fL 80-94 [facility] Mean corpuscular hemoglobin (MCH) determinationOrdered By: Wendy Mclaughlin on 10-28-2024 MCH (RBC) [Entitic mass] 29.7 pg 27.0-32.0 [facility] Mean corpuscular hemoglobin concentration (MCHC) determinationOrdered By: Wendy Mclaughlin on 10-28-2024 MCHC (RBC) [Mass/Vol] 34.6 g/dL 32-36 [facility] Mean platelet volume determi nationOrdered By: Wendy Mclaughlin on 10-28-2024 Platelet mean volume (Bld) [Entitic vol] 10.7 fL 6.2-12.0 [facility] Microscopic analysis of urin e for red blood cells (RBC)Ordered By: Wendy Mclaughlin on 10-28-2024 Microscopic analysis of urine for red blood cells (RBC) 0 SEEN /hpf 0-5 [facility] Monocyte percentageOrdered B y: Wendy Mclaughlin on 10-28-2024 Monocytes/100 WBC (Bld) 8.3 % 0-10 [facility] Mucus LM Ql (Urine sed)Order ed By: Wendy Mclaughlin on 10-28-2024 Mucus Ql (Urine sed) 0 SEEN /hpf [facility] Neutrophil percentageOrdered By: Wendy Mclaughlin on 10-28-2024 Neutrophils/100 WBC (Bld) 67.5 % 47-70 [facility] Nitrite Test strip Ql (U)Ord ered By: Wendy Mclaughlin on 10-28-2024 Nitrite Ql (U) Negative Negative [facility] Nucleated red blood cell per centageOrdered By: Wendy Mclaughlin on 10-28-2024 Nucleated RBC/100 WBC (Bld) [Ratio] 0 % 0-5 [facility] Platelet countOrdered By: Babak Mclaughlin on 10-28-2024 Platelets (Bld) [#/Vol] 147 10*3/uL Low 150-450 [facility] Potassium measurement (mass/ volume)Ordered By: Wendy Mclaughlin on 10-28-2024 Potassium (Unsp spec) [Mass/Vol] 3.7 mmol/L 3.3-5.1 [facility] Protein Test strip Ql (U)Ord ered By: Wendy Mclaughlin on 10-28-2024 Protein Ql (U) 15 mg/dl High Negative [facility] RBC Auto (Bld) [#/Vol]Ordere d By: Wendy Mclaughlin on 10-28-2024 RBC (Bld) [#/Vol] 4.75 10*6/uL 4.6-6.2 [facility] Serum creatinine measurement (mass/volume)Ordered By: Wendy Mclaughlin on 10-28-2024 Creatinine [Mass/Vol] 0.93 mg/dL 0.70-1.20 [facility] Serum globulin measurementOr dered By: Wendy Mclaughlin on 10-28-2024 Globulin (S) [Mass/Vol] 2.5 g/dL 2.2-4.2 [facility] Serum glucose measurement (m ass/volume)Ordered By: Wendy Mclaughlin on 10-28-2024 Glucose [Mass/Vol] 119 mg/dL High 70-99 [facility] Serum or plasma alanine fuchs otransferase (ALT) measurementOrdered By: Wendy Mclaughlin on 10-28-2024 ALT [Catalytic activity/Vol] 36 U/L <47 [facility] Serum or plasma albumin peterson urement (mass/volume)Ordered By: Wendy Mclaughlin on 10-28-2024 Albumin [Mass/Vol] 4.1 g/dL 3.4-4.8 [facility] Serum or plasma alkaline miki sphatase measurementOrdered By: Wendy Mclaughlin on 10-28-2024 ALP [Catalytic activity/Vol] 67 U/L 40-129 [facility] Serum or plasma calcium peterson urement (mass/volume)Ordered By: Wendy Mclaughlin on 10-28-2024 Calcium [Mass/Vol] 8.4 mg/dL 7.6-11.0 [facility] Serum or plasma urea nitroge n measurement (mass/volume)Ordered By: Wendy Mclaughlin on 10-28-2024 Urea nitrogen [Mass/Vol] 15 mg/dL 4-19 [facility] Sodium levelOrdered By: Gerald Mclaughlin on 10-28-2024 Sodium [Moles/Vol] 141 mmol/L 133-145 [facility] Squamous epithelial cells de tection in urine sediment by light microscopyOrdered By: Wendy Mclaughlin on 10-28-2024 Epithelial cells.squamous LM Ql (Urine sed) 0-5 SEEN /hpf 0-5 [facility] Total proteinOrdered By: Ramsey Mclaughlin on 10-28-2024 Protein [Mass/Vol] 6.6 g/dL 5.9-8.4 [facility] Urinalysis, Completeon 10-28 EPI,SQUAMOUS 0-5 SEEN Normal 0-5 [facility] Comment on above: Order Comment: LUCILLE CTOR TO SPECIFY Performed By: #### L 400.0001 ####[facility] [address] [place], [address] BACTERIA 0 SEEN Normal None Seen [facility] Comment on above: Order Comment: LUCILLE CTOR TO SPECIFY Performed By: #### L 400.0001 ####[facility] [address] [place], [address] Mucus Ql (Urine sed) 0 SEEN Normal [facility] Comment on above: Order Comment: LUCILLE CTOR TO SPECIFY Performed By: #### L 400.0001 ####[facility] [address] [place], [address] RBC 0 SEEN Normal 0-5 [facility] Comment on above: Order Comment: LUCILLE CTOR TO SPECIFY Performed By: #### L 400.0001 ####[facility] [address] [place], [address] WBC 0 SEEN Normal 0-5 [facility] Comment on above: Order Comment: LUCILLE CTOR TO SPECIFY Performed By: #### L 400.0001 ####[facility] [address] [place], [address] Urine clarityOrdered By: Ramsey Mclaughlin on 10-28-2024 Clarity (U) Clear Clear [facility] Urine color determinationOrd ered By: Wendy Mclaughlin on 10-28-2024 Color (U) Yellow Yellow [facility] Urine glucose detectionOrder ed By: Wendy Mclaughlin on 10-28-2024 Glucose Ql (U) Normal mg/dl Normal [facility] Urine leukocyte esterase det ection by dipstickOrdered By: Wendy Mclaughlin on 10-28-2024 Leukocyte esterase Test strip Ql (U) Negative Negative [facility] Urine pHOrdered By: Wendy woodard on 10-28-2024 pH (U) 7.0 [pH] 5.0 - 8.0 [facility] Urine sediment bacteria coun t by microscopy (number/high power field)Ordered By: Wendy Mclaughlni on 10-28-2024 Bacteria LM.HPF (Urine sed) [#/Area] 0 /[HPF] None Seen [facility] Urine specific gravity measu rementOrdered By: Wendy Mclaughlin on 10-28-2024 Specific gravity (U) [Rel density] 1.010 1.002-1.03 0 [facility] Urine urobilinogen measureme ntOrdered By: Wendy Mclaughlin on 10-28-2024 Urobilinogen Ql (U) Normal mg/dl Normal [facility] White blood cell (WBC) count Ordered By: Wendy Mclaughlin on 10-28-2024 WBC (Bld) [#/Vol] 4.1 10*3/uL Low 4.4-11.0 [facility] White blood cell countOrdere d By: Wendy Mclaughlin on 10-28-2024 White blood cell count 0 SEEN /hpf 0-5 [facility] CNOVon 10-21-2024 CNOV Normal [facility] Platelets Auto (Bld) [#/Vol] on 10-18-2024 Platelets (Bld) [#/Vol] 136 10*3/uL Low 150-400 [facility] Comment on above: Order Comment: Speci men Type: BLOOD SPECIMENOrdering Facility: [facility] Address: [address] [place] [address] Performed By: #### 7 77-3 ####[facility] LABCLIA [id number] [place] [address] [place] CNPNon 09-27-2024 CNPN Normal [facility] CNOVon 09-23-2024 CNOV Normal [facility] CNPNon 09-19-2024 CNPN Normal [facility] CBC W Auto Differential pane l (Bld)on 09-17-2024 Basophils (Bld) [#/Vol] 0.03 10*3/uL Normal <0.11 [facility] Comment on above: Order Comment: Speci men Type: BLOOD SPECIMENOrdering Facility: [facility] Address: [address] [place] [address] Performed By: #### 5 7021-8, 4537-7 ####[facility] LABCLIA [id number] [place] [address] [place] Basophils/100 WBC (Bld) 0.7 % Normal [facility] Comment on above: Order Comment: Speci men Type: BLOOD SPECIMENOrdering Facility: [facility] Address: [address] [place] [address] Performed By: #### 5 7021-8, 7-7 ####[facility] LABCLIA [id number] [place] [address] [place] Differential cell count method Nom (Bld) Auto Normal [facility] Comment on above: Order Comment: Speci men Type: BLOOD SPECIMENOrdering Facility: [facility] Address: [address] [place] [address] Performed By: #### 5 7021-8, 4537-7 ####[facility] LABCLIA [id number] [place] [address] [place] Eosinophils (Bld) [#/Vol] 0.06 10*3/uL Normal <0.46 [facility] Comment on above: Order Comment: Speci men Type: BLOOD SPECIMENOrdering Facility: [facility] Address: [address] [place] [address] Performed By: #### 5 7021-8, 7 ####[facility] LABCLIA [id number] [facility] [place] [address] [place] Eosinophils/100 WBC (Bld) 1.4 % Normal [facility] Comment on above: Order Comment: Speci men Type: BLOOD SPECIMENOrdering Facility: [facility] Address: [address] [place] [address] Performed By: #### 5 7021-8, 7 ####[facility] LABCLIA [id number] [place] [address] [place] Erythrocyte distribution width (RBC) [Ratio] 13.4 % Normal 11.5-15.0 [facility] Comment on above: Order Comment: Speci men Type: BLOOD SPECIMENOrdering Facility: [facility] Address: [address] [place] [address] Performed By: #### 5 7021-8, 7 ####[facility] LABCLIA [id number] [place] [address] [place] Hematocrit (Bld) [Volume fraction] 46.8 % Normal 39.0-51.0 [facility] Comment on above: Order Comment: Speci men Type: BLOOD SPECIMENOrdering Facility: [facility] Address: [address] [place] [address] Performed By: #### 5 7021-8, 4536-7 ####[facility] LABCLIA [id number] [place] [id number] [place] Hemoglobin (Bld) [Mass/Vol] 15.6 g/dL Normal 13.0-17.0 [facility] Comment on above: Order Comment: Speci men Type: BLOOD SPECIMENOrdering Facility: [facility] Address: [address] [place] [address] Performed By: #### 5 7021-8, 4536-7 ####[facility] LABCLIA [id number] [place] [address] [place] Immature granulocytes (Bld) [#/Vol] 10*3/uL Normal <0.10 [facility] Comment on above: Order Comment: Speci men Type: BLOOD SPECIMENOrdering Facility: [facility] Address: [address] [place] [address] Performed By: #### 5 7021-8, 4536-7 ####[facility] LABCLIA [id number] [place] [address] [place] Immature granulocytes/100 WBC (Bld) 0.2 % Normal [facility] Comment on above: Order Comment: Speci men Type: BLOOD SPECIMENOrdering Facility: [facility] Address: [address] [place] [address] Performed By: #### 5 7021-8, 4536-7 ####[facility] LABIA [id number] [place] [address] [place] Lymphocytes (Bld) [#/Vol] 0.91 10*3/uL Low 1.00-4.00 [facility] Comment on above: Order Comment: Speci men Type: BLOOD SPECIMENOrdering Facility: [facility] Address: [address] [place] [address] Performed By: #### 5 7021-8, 4536-7 ####[facility] LABCLIA [id number] [place] [address] [place] Lymphocytes/100 WBC (Bld) 20.5 % Normal [facility] Comment on above: Order Comment: Speci men Type: BLOOD SPECIMENOrdering Facility: [facility] Address: [address] [place] [address] Performed By: #### 5 7021-8, 7 ####[facility] LABIA [id number] [place] [id number] [place] MCH (RBC) [Entitic mass] 28.6 pg Normal 26.0-34.0 [facility] Comment on above: Order Comment: Speci men Type: BLOOD SPECIMENOrdering Facility: [facility] Address: [address] [place] [address] Performed By: #### 5 7021-8, 7 ####[facility] LABIA [id number] [place] [address] [place] MCHC (RBC) [Mass/Vol] 33.3 g/dL Normal 30.5-36.0 [facility] Comment on above: Order Comment: Speci men Type: BLOOD SPECIMENOrdering Facility: [facility] Address: [address] [place] [address] Performed By: #### 5 7021-8, 7 ####[facility] LABIA [id number] [place] [address] [place] MCV (RBC) [Entitic vol] 85.7 fL Normal 80.0-100.0 [facility] Comment on above: Order Comment: Speci men Type: BLOOD SPECIMENOrdering Facility: [facility] Address: [address] [place] [address] Performed By: #### 5 7021-8, 7 ####[facility] LABIA [id number] [place] [id number] [place] Monocytes (Bld) [#/Vol] 0.40 10*3/uL Normal <0.87 [facility] Comment on above: Order Comment: Speci men Type: BLOOD SPECIMENOrdering Facility: [facility] Address: [address] [place] [address] Performed By: #### 5 7021-8, 4536-7 ####[facility] LABIA [id number] [place] [address] [place] Monocytes/100 WBC (Bld) 9.0 % Normal [facility] Comment on above: Order Comment: Speci men Type: BLOOD SPECIMENOrdering Facility: [facility] Address: [address] [place] [address] Performed By: #### 5 7021-8, 4537-7 ####[facility] LABCLIA [id number] [place] [address] [place] Neutrophils (Bld) [#/Vol] 3.02 10*3/uL Normal 1.45-7.50 [facility] Comment on above: Order Comment: Speci men Type: BLOOD SPECIMENOrdering Facility: [facility] Address: [address] [place] [address] Performed By: #### 5 7021-8, 4537-7 ####[facility] LABCLIA [id number] [place] [address] [place] Neutrophils/100 WBC (Bld) 68.2 % Normal [facility] Comment on above: Order Comment: Speci men Type: BLOOD SPECIMENOrdering Facility: [facility] Address: [address] [place] [address] Performed By: #### 5 7021-8, 4536-7 ####[facility] LABCLIA [id number] [place] [address] [place] Nucleated RBC (Bld) [#/Vol] 10*3/uL Normal <0.01 [facility] Comment on above: Order Comment: Speci men Type: BLOOD SPECIMENOrdering Facility: [facility] Address: [address] [place] [address] Performed By: #### 5 7021-8, 7-7 ####[facility] LABCLIA [id number] [place] [address] [place] Nucleated RBC/100 WBC (Bld) [Ratio] 0.0 /100 WBC Normal [facility] Comment on above: Order Comment: Speci men Type: BLOOD SPECIMENOrdering Facility: [facility] Address: [address] [place] [address] Performed By: #### 5 7021-8, 4536-7 ####[facility] LABCLIA [id number] [place] [address] [place] Platelet mean volume (Bld) [Entitic vol] 11.7 fL Normal 9.0-12.7 [facility] Comment on above: Order Comment: Speci men Type: BLOOD SPECIMENOrdering Facility: [facility] Address: [address] [place] [address] Performed By: #### 5 7021-8, 4536-7 ####[facility] LABCLIA [id number] [place] [address] [place] Platelets (Bld) [#/Vol] 143 10*3/uL Low 150-400 [facility] Comment on above: Order Comment: Speci men Type: BLOOD SPECIMENOrdering Facility: [facility] Address: [address] [place] [address] Performed By: #### 5 7021-8, 4536-7 ####[facility] LABIA [id number] [place] [address] [place] RBC (Bld) [#/Vol] 5.46 10*6/uL Normal 4.20-6.00 [facility] Comment on above: Order Comment: Speci men Type: BLOOD SPECIMENOrdering Facility: [facility] Address: [address] [place] [address] Performed By: #### 5 7021-8, 4536-7 ####[facility] LABCLIA [id number] [place] [address] [place] WBC (Bld) [#/Vol] 4.43 10*3/uL Normal 3.70-11.00 [facility] Comment on above: Order Comment: Speci men Type: BLOOD SPECIMENOrdering Facility: [facility] Address: [address] [id number] Performed By: #### 5 7021-8, 4537-7 ####[facility] LABCLIA [id number] [address] [address] [place] Comprehensive metabolic 2000 panelon 09-17-2024 Albumin [Mass/Vol] 4.4 g/dL Normal 3.9-4.9 [facility] Comment on above: Order Comment: Speci men Type: BLOOD SPECIMENOrdering Facility: [facility] Address: [address] [place] [address] Performed By: #### 2 4323-8, 47244-2, T4FTI ####[facility] LABCLIA [id number] [place] [address] [place] ALP [Catalytic activity/Vol] 71 U/L Normal 38-113 [facility] Comment on above: Order Comment: Speci men Type: BLOOD SPECIMENOrdering Facility: [facility] Address: [address] [place], [place] [address] Performed By: #### 2 4323-8, 75692-9, T4FTI ####[facility] LABIA [id number] [place] [address] [place] ALT [Catalytic activity/Vol] 31 U/L Normal 10-54 [facility] Comment on above: Order Comment: Speci men Type: BLOOD SPECIMENOrdering Facility: [facility] Address: [address] [id number] Performed By: #### 2 4323-8, 99651-9, T4FTI ####[facility] LABIA [id number] [place] [address] [place] Anion gap [Moles/Vol] 13 mmol/L Normal 8-15 [facility] Comment on above: Order Comment: Speci men Type: BLOOD SPECIMENOrdering Facility: [facility] Address: [address] [place] [address] [place] [address] Performed By: #### 2 4323-8, 20912-5, T4FTI ####[facility] LABIA [id number] [address] [address] [place] AST [Catalytic activity/Vol] 25 U/L Normal 14-40 [facility] Comment on above: Order Comment: Speci men Type: BLOOD SPECIMENOrdering Facility: [facility] Address: [address] [place] [address] Performed By: #### 2 4323-8, 63175-2, T4FTI ####[facility] LABIA [id number] [place] [address] [place] Bilirubin [Mass/Vol] 1.0 mg/dL Normal 0.2-1.3 [facility] Comment on above: Order Comment: Speci men Type: BLOOD SPECIMENOrdering Facility: [facility] Address: [address] [place] [address] Performed By: #### 2 4323-8, 91908-8, T4FTI ####[facility] [id number] [place] [address] [place] Calcium [Mass/Vol] 9.7 mg/dL Normal 8.5-10.2 [facility] Comment on above: Order Comment: Speci men Type: BLOOD SPECIMENOrdering Facility: [facility] Address: [address] [place], [place] [address] Performed By: #### 2 4323-8, 11125-0, T4FTI ####[facility] LABIA [id number] [place] [address] [place] Chloride [Moles/Vol] 104 mmol/L Normal 98-107 [facility] Comment on above: Order Comment: Speci men Type: BLOOD SPECIMENOrdering Facility: [facility] Address: [address] [place], [place] [address] Performed By: #### 2 4323-8, , T4FTI ####[facility] LABIA [id number] [address] [address] [place] CO2 [Moles/Vol] 24 mmol/L Normal 22-30 [facility] Comment on above: Order Comment: Speci men Type: BLOOD SPECIMENOrdering Facility: [facility] Address: [address] [place] [address] Performed By: #### 2 432-8, 23641-7, T4FTI ####[facility] LABIA [id number] [address] [address] [place] Creatinine [Mass/Vol] 1.00 mg/dL Normal 0.73-1.22 [facility] Comment on above: Order Comment: Speci men Type: BLOOD SPECIMENOrdering Facility: [facility] Address: [address] [place] [address] Performed By: #### 2 432-8, 89619-0, T4FTI ####[facility] LABIA [id number] [address] [address] [place] Creatinine and Glomerular filtration rate.predicted panel (S/P/Bld) 83 mL/min/1.73m??? Normal >=60 [facility] Comment on above: Order Comment: Speci men Type: BLOOD SPECIMENOrdering Facility: [facility] Address: [address] [place] [address] Result Comment: Jayshree mated Glomerular Filtration Rate [...] actual GFR. Performed By: #### 2 4323-8, 37023-1, T4FTI ####[facility] LABIA [id number] [address] [address] [place] Glucose [Mass/Vol] 117 mg/dL High 74-99 [facility] Comment on above: Order Comment: Speci men Type: BLOOD SPECIMENOrdering Facility: [facility] Address: [address] [place] [address] Result Comment: The [place] Diabetes Association (ADA) provides guidance for cutoff values for fasting glucose and random glucose. The ADA defines fasting as no caloric intake for at least 8 hours. Fasting plasma glucose results between 100 to 125 mg/dL indicate increased risk for diabetes (prediabetes).Fasting plasma glucose results greater than or equal to 126 mg/dL meet the criteria for diagnosis of diabetes. In the absence of unequivocal hyperglycemia, results should be confirmed by repeat testing. In a patient with classic symptoms of hyperglycemia or hyperglycemic crisis, random plasma glucose results greater than or equal to 200 mg/dL meet the criteria for diagnosis of diabetes.Reference: Standards of Medical Care in Diabetes 2016, [place] Diabetes Association. Diabetes Care. 2016.39(Suppl 1). Performed By: #### 2 4323-8, 62627-4, T4FTI ####[facility] LABCLIA [id number] [place] [address] [place] Potassium [Moles/Vol] 4.1 mmol/L Normal 3.7-5.1 [facility] Comment on above: Order Comment: Speci men Type: BLOOD SPECIMENOrdering Facility: [facility] Address: [address] [place] [address] Performed By: #### 2 4323-8, 65281-1, T4FTI ####[facility] LABCLIA [id number] [place] [address] [place] Protein [Mass/Vol] 7.4 g/dL Normal 6.3-8.0 [facility] Comment on above: Order Comment: Speci men Type: BLOOD SPECIMENOrdering Facility: [facility] Address: [address] [place] [address] Performed By: #### 2 4323-8, 61242-1, T4FTI ####[facility] LABCLIA [id number] [place] [address] [place] Sodium [Moles/Vol] 141 mmol/L Normal 136-144 [facility] Comment on above: Order Comment: Speci men Type: BLOOD SPECIMENOrdering Facility: [facility] Address: [address] [place] [address] Performed By: #### 2 4323-8, 14263-9, T4FTI ####[facility] LABCLIA [id number] [place] [address] [place] Urea nitrogen [Mass/Vol] 12 mg/dL Normal 9-24 [facility] Comment on above: Order Comment: Speci men Type: BLOOD SPECIMENOrdering Facility: [facility] Address: [address] [place] [address] Performed By: #### 2 4323-8, 65996-3, T4FTI ####[facility] LABCLIA [id number] [place] [address] [place] ESR Westergren method (Bld) [Velocity]on 09-17-2024 ESR (Bld) [Velocity] 16 mm/h High 0-15 [facility] Comment on above: Order Comment: Speci men Type: BLOOD SPECIMENOrdering Facility: [facility] Address: [address] [place] [address] Performed By: #### 5 7021-8, 4537-7 ####[facility] LABCLIA [id number] [place] [address] [place] Lipid 1996 panelon 5 Cholesterol [Mass/Vol] 134 mg/dL Normal <200 [facility] Comment on above: Order Comment: Speci men Type: BLOOD SPECIMENOrdering Facility: [facility] Address: [address] [place] [address] Result Comment: <200 mg/dL, Desirable 200-239 mg/dL, Borderline high>239 mg/dL, High Performed By: #### 2 4323-8, 70398-3, T4FTI ####[facility] LABCLIA [id number] [address] [place] Cholesterol in HDL [Mass/Vol] 30 mg/dL Low >39 [facility] Comment on above: Order Comment: Dunia peters Type: BLOOD SPECIMENOrdering Facility: [facility] Address: [address] [place] [address] Result Comment: 40-5 9 mg/dL, Acceptable>59 mg/dL, High: Negative risk factor for coronary heart disease<40 mg/dL, Low: Positive risk factor for coronary heart disease Performed By: #### 2 4323-8, 53305-5, T4FTI ####[facility] LABCLIA [id number] [address] Cholesterol in LDL [Mass/Vol] 46 mg/dL Normal <100 [facility] Comment on above: Order Comment: Dunia fran Type: BLOOD SPECIMENOrdering Facility: [facility] Address: [address] [place] [address] Result Comment: <100 mg/dL, Optimal 100-129 mg/dL, Near optimal/above optimal 130-159 mg/dL, Borderline high 160-189 mg/dL, High>189 mg/dL, Very highSecondary prevention optimal LDL Cholesterol levels are recommended to be < 70 mg/dL Performed By: #### 2 4323-8, 56665-0, T4FTI ####[facility] LABIA [id number] [address] [facility] Cholesterol in LDL/Cholesterol in HDL [Mass ratio] 1.53 {ratio} Normal <2.54 [facility] Comment on above: Order Comment: Speci men Type: BLOOD SPECIMENOrdering Facility: [facility] Address: [address] [place] [address] Result Comment: Pop patel:1. National Cholesterol Education Program ATP III Guideline At-A-Glance Quick Desk Reference: National Heart, Lung, and Blood [place]. National Institutes of Health. 2001: NIH Publication No. 01-3305.2. An International Atherosclerosis Society position paper: global recommendations for the management of dyslipidemia: executive summary, Atherosclerosis. 2014: 232(2):410-413. Performed By: #### 2 4323-8, 90613-2, T4FTI ####[facility] LABCLIA [id number] [address] [place] [address] [place] Cholesterol in VLDL [Mass/Vol] 58 mg/dL High <30 [facility] Comment on above: Order Comment: Speci men Type: BLOOD SPECIMENOrdering Facility: [facility] Address: [address] [place] [address] Performed By: #### 2 4323-8, 03776-1, T4FTI ####[facility] LABCLIA [id number] [address], [facility] [place] Cholesterol non HDL [Mass/Vol] 104 mg/dL Normal <130 [facility] Comment on above: Order Comment: Speci men Type: BLOOD SPECIMENOrdering Facility: [facility] Address: [address] [place] [address] Result Comment: <130 mg/dL, Optimal 130-159 mg/dL, Near optimal/above optimal 160-189 mg/dL, Borderline high 190-219 mg/dL, High>219 mg/dL, Very highSecondary prevention optimal non HDL Cholesterol levels are recommended to be <100 mg/dL Performed By: #### 2 4323-8, 91502-1, T4FTI ####[facility] LABCLIA [id number] [address] [place] [address] [place] Cholesterol.total/Cho lesterol in HDL [Mass ratio] 4.47 {ratio} Normal <5.10 [facility] Comment on above: Order Comment: Speci men Type: BLOOD SPECIMENOrdering Facility: [facility] Address: [address] [place] [address] Performed By: #### 2 4323-8, 15496-8, T4FTI ####[facility] LABCLIA [id number] [address] [place] [address] [place] FASTING TIME 12 hrs Normal [facility] Comment on above: Order Comment: Speci men Type: BLOOD SPECIMENOrdering Facility: [facility] Address: [address] [place] [address] Performed By: #### 2 4323-8, 71484-5, T4FTI ####[facility] LABCLIA [id number] [place] [address] [place] Triglyceride [Mass/Vol] 292 mg/dL High <150 [facility] Comment on above: Order Comment: Speci men Type: BLOOD SPECIMENOrdering Facility: [facility] Address: [address] [place] [address] Result Comment: <150 mg/dL, Normal 150-199 mg/dL, Borderline high 200-499 mg/dL, High>499 mg/dL, Very high Performed By: #### 2 4323-8, 18676-1, T4FTI ####[facility] LABCLIA [id number] [place] [address] [place] T4/FTI/T4Uon 09-17-2024 FTI 6.0 ug/dL Normal 5.3-10.8 [facility] Comment on above: Order Comment: Speci men Type: BLOOD SPECIMENOrdering Facility: [facility] Address: [address] [place] [address] Performed By: #### 2 4323-8, 33595-2, T4FTI ####[facility] LABCLIA [id number] [place] [address] [place] T4 [Mass/Vol] 6.8 ug/dL Normal 5.5-10.2 [facility] Comment on above: Order Comment: Speci men Type: BLOOD SPECIMENOrdering Facility: [facility] Address: [address] [place] [address] Performed By: #### 2 4323-8, 15627-2, T4FTI ####[facility] LABCLIA [id number] [place] [address] [place] T4 uptake [Mass/Vol] 1.13 Normal 0.91-1.19 [facility] Comment on above: Order Comment: Speci men Type: BLOOD SPECIMENOrdering Facility: [facility] Address: [address] [place] [address] Performed By: #### 2 4323-8, 62243-4, T4FTI ####[facility] LABCLIA [id number] [place] [address] [place] TSH SerPl-aCncon 09-17-2024 TSH Qn 2.780 m[IU]/L Normal 0.270-4.20 0 [facility] Comment on above: Order Comment: Speccésar peters Type: BLOOD SPECIMENOrdering Facility: [facility] Address: [address] [place] [address] Performed By: #### 3 016-3 ####[facility] LABCLIA [id number] [place] [address] [place] CNOVon 09-11-2024 CNOV Normal [facility] Cardiology Visit Reporton Cardiology Visit Report [facility] 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.] date: 06/19/ (more content not included)... Normal [facility] CNPNon 07-12-2024 CNPN Normal [facility] CNOVon 07-08-2024 CNOV Normal [facility] HbA1c (Bld)on 07-08-2024 Average glucose Estimated from glycated hemoglobin (Bld) [Mass/Vol] 103 mg/dL Normal [facility] Comment on above: Order Comment: Speci men Type: BLOOD SPECIMENOrdering Facility: [facility] Address: [address] [id number] Result Comment: eAG: (Estimated average glucose) is a calculated value from HgbA1c and is service center representative of the average blood glucose level in the last 2-3 month period. Performed By: #### 5 5454-3 ####[facility] LABIA [id number] [place] [id number] [place] HbA1c (Bld) [Mass fraction] 5.2 % Normal 4.3-5.6 [facility] Comment on above: Order Comment: Speci men Type: BLOOD SPECIMENOrdering Facility: [facility] Address: [address] [place] [address] Result Comment: Amer [place] Diabetes Association guidelines indicate that patients with HgbA1c in the range 5.7-6.4% are at increased risk for development of diabetes, and intervention by lifestyle modification may be beneficial. HgbA1c greater or equal to 6.5% is considered diagnostic of diabetes. Performed By: #### 5 5454-3 ####[facility] [id number] [place] [id number] [place] POTASSIUMon 07-08-2024 Potassium [Moles/Vol] 4.1 mmol/L Normal 3.7-5.1 [facility] Comment on above: Order Comment: Paragi men Type: BLOOD SPECIMENOrdering Facility: [facility] Address: [address] [place] [address] Performed By: #### K 1 ####[facility] [id number] [place] [id number] [place] XR CHEST 2V FRONTAL/LATon XR CHEST 2V FRONTAL/LAT Normal [facility] XR Chest PA and Lateralon IMPRESSION: Interval resolution/near total resolution of small hazy opacities in the left lower lung. Coding Spec: OSMANI Transcribe Date/Time: Jul 08 2024 11:41A Dictated by : LETTY THOMAS MD This examination was interpreted and the report reviewed and electronically signed by: LETTY THOMAS MD on Jul 08 2024 11:43AM [facility] DIVISION OF RADIOLOGY * * *Final [...] in the spine. DIVISION OF RADIOLOGY Provider, [facility] - 07/08/2024 * * *Final Report* * [...] hazy opacities in the left lower lung. Coding Spec: OSMANI Transcribe Date/Time: Jul 08 2024 11:41A Dictated by : LETTY THOMAS MD This examination was interpreted and the report reviewed and electronically signed by: LETTY THOMAS MD on Jul 08 2024 11:43AM EST [facility] Radiology Study observation (narrative) [facility] XR Chest PA and LateralOrder ed By: Ccf Provider on 07-08-2024 [facility] CNPNon 06-25-2024 CNPN Normal [facility] Basic metabolic 2000 panelon 06-24-2024 Anion gap [Moles/Vol] 13 mmol/L Normal 8-15 [facility] Comment on above: Order Comment: Speci men Type: BLOOD SPECIMENOrdering Facility: [facility] Address: [address] [place] [address] Performed By: #### 2 4321-2 ####[facility] LABCLIA [id number] [place] [address] [place] Calcium [Mass/Vol] 9.6 mg/dL Normal 8.5-10.2 [facility] Comment on above: Order Comment: Speci men Type: BLOOD SPECIMENOrdering Facility: [facility] Address: [address] [place] [address] Performed By: #### 2 4321-2 ####[facility] LABCLIA [id number] [place] [address] [place] Chloride [Moles/Vol] 100 mmol/L Normal 98-107 [facility] Comment on above: Order Comment: Speci men Type: BLOOD SPECIMENOrdering Facility: [facility] Address: [address] [place] [address] Performed By: #### 2 4321-2 ####[facility] LABCLIA [id number] [place] [id number] [place] CO2 [Moles/Vol] 25 mmol/L Normal 22-30 [facility] Comment on above: Order Comment: Speci men Type: BLOOD SPECIMENOrdering Facility: [facility] Address: [address] [place] [address] Performed By: #### 2 4321-2 ####[facility] LABCLIA [id number] [place] [address] [place] Creatinine [Mass/Vol] 1.11 mg/dL Normal 0.73-1.22 [facility] Comment on above: Order Comment: Dunia peters Type: BLOOD SPECIMENOrdering Facility: [facility] Address: [address] [place] [address] Performed By: #### 2 4321-2 ####[facility] LABCLIA [id number] [place] [address] [place] Creatinine and Glomerular filtration rate.predicted panel (S/P/Bld) 73 mL/min/1.73m??? Normal >=60 [facility] Comment on above: Order Comment: Dunia peters Type: BLOOD SPECIMENOrdering Facility: [facility] Address: [address] [place] [address] Result Comment: Ajyshree mated Glomerular Filtration Rate (eGFR) is calculated [...] actual GFR. Performed By: #### 2 4321-2 ####[facility] LABCLIA [id number] [place] [address] [place] Glucose [Mass/Vol] 167 mg/dL High 74-99 [facility] Comment on above: Order Comment: Dunia peters Type: BLOOD SPECIMENOrdering Facility: [facility] Address: [address] [place] [address] Result Comment: The [place] Diabetes Association (ADA) provides guidance for cutoff values for fasting glucose and random glucose. The ADA defines fasting as no caloric intake for at least 8 hours. Fasting plasma glucose results between 100 to 125 mg/dL indicate increased risk for diabetes (prediabetes).Fasting plasma glucose results greater than or equal to 126 mg/dL meet the criteria for diagnosis of diabetes. In the absence of unequivocal hyperglycemia, results should be confirmed by repeat testing. In a patient with classic symptoms of hyperglycemia or hyperglycemic crisis, random plasma glucose results greater than or equal to 200 mg/dL meet the criteria for diagnosis of diabetes.Reference: Standards of Medical Care in Diabetes 2016, [place] Diabetes Association. Diabetes Care. 2016.39(Suppl 1). Performed By: #### 2 4321-2 ####[facility] LABCLIA [id number] [place] [address] [place] Potassium [Moles/Vol] 3.6 mmol/L Low 3.7-5.1 [facility] Comment on above: Order Comment: Speci men Type: BLOOD SPECIMENOrdering Facility: [facility] Address: [address] [place] [address] Performed By: #### 2 4321-2 ####[facility] LABIA [id number] [place] [address] [place] Sodium [Moles/Vol] 138 mmol/L Normal 136-144 [facility] Comment on above: Order Comment: Speci men Type: BLOOD SPECIMENOrdering Facility: [facility] Address: [address] [place] [address] Performed By: #### 2 4321-2 ####[facility] LABIA [id number] [place] [address] [place] Urea nitrogen [Mass/Vol] 17 mg/dL Normal 9-24 [facility] Comment on above: Order Comment: Speci men Type: BLOOD SPECIMENOrdering Facility: [facility] Address: [address] [place] [address] Performed By: #### 2 4321-2 ####[facility] LABIA [id number] [place] [id number] [place] CBC W Auto Differential pane l (Bld)on 06-24-2024 Basophils (Bld) [#/Vol] 0.04 10*3/uL Normal <0.11 [facility] Comment on above: Order Comment: Speci men Type: BLOOD SPECIMENOrdering Facility: [facility] Address: [address] [place] [address] Performed By: #### 5 7021-8 ####[facility] LABCLIA [id number] [place] [address] [place] Basophils/100 WBC (Bld) 0.5 % Normal [facility] Comment on above: Order Comment: Speci men Type: BLOOD SPECIMENOrdering Facility: [facility] Address: [address] [place] [address] Performed By: #### 5 7021-8 ####[facility] LABCLIA [id number] [place] [address] [place] Differential cell count method Nom (Bld) Auto Normal [facility] Comment on above: Order Comment: Speci men Type: BLOOD SPECIMENOrdering Facility: [facility] Address: [address] [place] [address] Performed By: #### 5 7021-8 ####[facility] LABCLIA [id number] [place] [address] [place] Eosinophils (Bld) [#/Vol] 0.07 10*3/uL Normal <0.46 [facility] Comment on above: Order Comment: Speci men Type: BLOOD SPECIMENOrdering Facility: [facility] Address: [address] [place] [address] Performed By: #### 5 7021-8 ####[facility] LABCLIA [id number] [place] [address] [place] Eosinophils/100 WBC (Bld) 0.9 % Normal [facility] Comment on above: Order Comment: Speci men Type: BLOOD SPECIMENOrdering Facility: [facility] Address: [address] [place] [address] Performed By: #### 5 7021-8 ####[facility] LABCLIA [id number] [place] [address] [place] Erythrocyte distribution width (RBC) [Ratio] 13.3 % Normal 11.5-15.0 [facility] Comment on above: Order Comment: Speci men Type: BLOOD SPECIMENOrdering Facility: [facility] Address: [address] [place] [address] Performed By: #### 5 7021-8 ####[facility] LABIA [id number] [place] [address] [place] Hematocrit (Bld) [Volume fraction] 49.5 % Normal 39.0-51.0 [facility] Comment on above: Order Comment: Speci men Type: BLOOD SPECIMENOrdering Facility: [facility] Address: [address] [place] [address] Performed By: #### 5 7021-8 ####[facility] LABIA [id number] [place] [address] [place] Hemoglobin (Bld) [Mass/Vol] 16.4 g/dL Normal 13.0-17.0 [facility] Comment on above: Order Comment: Speci men Type: BLOOD SPECIMENOrdering Facility: [facility] Address: [address] [place] [address] Performed By: #### 5 7021-8 ####[facility] LABIA [id number] [place] [address] [place] Immature granulocytes (Bld) [#/Vol] 0.03 10*3/uL Normal <0.10 [facility] Comment on above: Order Comment: Speci men Type: BLOOD SPECIMENOrdering Facility: [facility] Address: [address] [place] [address] Performed By: #### 5 7021-8 ####[facility] LABIA [id number] [place] [address] [place] Immature granulocytes/100 WBC (Bld) 0.4 % Normal [facility] Comment on above: Order Comment: Speci men Type: BLOOD SPECIMENOrdering Facility: [facility] Address: [address] [place] [address] Performed By: #### 5 7021-8 ####[facility] LABCLIA [id number] [place] [address] [place] Lymphocytes (Bld) [#/Vol] 1.20 10*3/uL Normal 1.00-4.00 [facility] Comment on above: Order Comment: Speci men Type: BLOOD SPECIMENOrdering Facility: [facility] Address: [address] [place] [address] Performed By: #### 5 7021-8 ####[facility] LABCLIA [id number] [place] [address] [place] Lymphocytes/100 WBC (Bld) 16.3 % Normal [facility] Comment on above: Order Comment: Speci men Type: BLOOD SPECIMENOrdering Facility: [facility] Address: [address] [place] [address] Performed By: #### 5 7021-8 ####[facility] LABIA [id number] [place] [address] [place] MCH (RBC) [Entitic mass] 28.7 pg Normal 26.0-34.0 [facility] Comment on above: Order Comment: Speci men Type: BLOOD SPECIMENOrdering Facility: [facility] Address: [address] [place] [address] Performed By: #### 5 7021-8 ####[facility] LABIA [id number] [place] [address] [place] MCHC (RBC) [Mass/Vol] 33.1 g/dL Normal 30.5-36.0 [facility] Comment on above: Order Comment: Speci men Type: BLOOD SPECIMENOrdering Facility: [facility] Address: [address] [place] [address] Performed By: #### 5 7021-8 ####[facility] LABCLIA [id number] [place] [address] [place] MCV (RBC) [Entitic vol] 86.7 fL Normal 80.0-100.0 [facility] Comment on above: Order Comment: Speci men Type: BLOOD SPECIMENOrdering Facility: [facility] Address: [address] [place] [address] Performed By: #### 5 7021-8 ####[facility] LABCLIA [id number] [place] [address] [place] Monocytes (Bld) [#/Vol] 0.60 10*3/uL Normal <0.87 [facility] Comment on above: Order Comment: Speci men Type: BLOOD SPECIMENOrdering Facility: [facility] Address: [address] [place] [address] Performed By: #### 5 7021-8 ####[facility] LABCLIA [id number] [place] [address] [place] Monocytes/100 WBC (Bld) 8.1 % Normal [facility] Comment on above: Order Comment: Speci men Type: BLOOD SPECIMENOrdering Facility: [facility] Address: [address] [place] [address] Performed By: #### 5 7021-8 ####[facility] LABCLIA [id number] [place] [address] [place] Neutrophils (Bld) [#/Vol] 5.44 10*3/uL Normal 1.45-7.50 [facility] Comment on above: Order Comment: Speci men Type: BLOOD SPECIMENOrdering Facility: [facility] Address: [address] [place] [address] Performed By: #### 5 7021-8 ####[facility] LABCLIA [id number] [place] [address] [place] Neutrophils/100 WBC (Bld) 73.8 % Normal [facility] Comment on above: Order Comment: Speci men Type: BLOOD SPECIMENOrdering Facility: [facility] Address: [address] [place] [address] Performed By: #### 5 7021-8 ####[facility] LABCLIA [id number] [place] [address] [place] Nucleated RBC (Bld) [#/Vol] 10*3/uL Normal <0.01 [facility] Comment on above: Order Comment: Speci men Type: BLOOD SPECIMENOrdering Facility: [facility] Address: [address] [place] [address] Performed By: #### 5 7021-8 ####[facility] LABCLIA [id number] [place] [address] [place] Nucleated RBC/100 WBC (Bld) [Ratio] 0.0 /100 WBC Normal [facility] Comment on above: Order Comment: Speci men Type: BLOOD SPECIMENOrdering Facility: [facility] Address: [address] [place] [address] Performed By: #### 5 7021-8 ####[facility] LABIA [id number] [place] [address] [place] Platelet mean volume (Bld) [Entitic vol] 11.4 fL Normal 9.0-12.7 [facility] Comment on above: Order Comment: Speci men Type: BLOOD SPECIMENOrdering Facility: [facility] Address: [address] [place] [address] Performed By: #### 5 7021-8 ####[facility] LABIA [id number] [place] [address] [place] Platelets (Bld) [#/Vol] 242 10*3/uL Normal 150-400 [facility] Comment on above: Order Comment: Speci men Type: BLOOD SPECIMENOrdering Facility: [facility] Address: [address] [place] [address] Performed By: #### 5 7021-8 ####[facility] LABCLIA [id number] [address] [address] [id number] [address] [place] RBC (Bld) [#/Vol] 5.71 10*6/uL Normal 4.20-6.00 [facility] Comment on above: Order Comment: Speci men Type: BLOOD SPECIMENOrdering Facility: [facility] Address: [address] [place] [address] Performed By: #### 5 7021-8 ####[facility] LABCLIA [id number] [place] [address] [place] WBC (Bld) [#/Vol] 7.38 10*3/uL Normal 3.70-11.00 [facility] Comment on above: Order Comment: Speci men Type: BLOOD SPECIMENOrdering Facility: [facility] Address: [address] [place] [address] Performed By: #### 5 7021-8 ####[facility] LABCLIA [id number] [place] [address] [place] CNOVon 06-24-2024 CNOV Normal [facility] D dimer FEU PPP-mCncon 06-24 Fibrin D-dimer FEU (PPP) [Mass/Vol] 290 ng/mL FEU Normal <500 [facility] Comment on above: Order Comment: Speci men Type: BLOOD SPECIMENOrdering Facility: [facility] Address: [address] [place] [address] Performed By: #### 4 8065-7 ####[facility] LABCLIA [id number] [place] [address] [place] D-DIMERon 06-24-2024 Fibrin D-dimer FEU (PPP) [Mass/Vol] 290 NINF [facility] Fibrin D-dimer FEU (PPP) [Ma ss/Vol]on 06-24-2024 D Dimer Age-related Cutoff 660 ng/mL FEU [facility] 500 ng/mL FEU is the D Dimer [...] et al. DAMON 2014 311:1117 and Van Natalia N, et al. Vandana Int Med 2016 165:253. [facility] D DIMER AGE-RELATED CUTOFF 660 ng/mL FEU Normal [facility] Comment on above: Order Comment: Speci men Type: BLOOD SPECIMENOrdering Facility: [facility] Address: [address] [place] [address] Performed By: #### 4 8065-7 ####[facility] LABCLIA [id number] [place] [address] [place] CNOVon 06-17-2024 CNOV Normal [facility] CNPNon 06-17-2024 CNPN Normal [facility] XR CHEST 2V FRONTAL/LATon XR CHEST 2V FRONTAL/LAT Normal [facility] XR Chest PA and Lateralon IMPRESSION: Small hazy opacities overlying the left lower lung. Consider short-term follow-up. Coding Spec: PSCB Transcribe Date/Time: Jun 17 2024 3:25P Dictated by : LETTY THOMAS MD This examination was interpreted and the report reviewed and electronically signed by: LETTY THOMAS MD on Jun 17 2024 3:29PM [facility] DIVISION OF RADIOLOGY * * *Final [...] soft tissues: Unremarkable. DIVISION OF RADIOLOGY Provider, [facility] - 06/17/2024 * * *Final Report* [...] the left lower lung. Consider short-term follow-up. Coding Spec: OSMANI Transcribe Date/Time: Jun 17 2024 3:25P Dictated by : LETTY THOMAS MD This examination was interpreted and the report reviewed and electronically signed by: LETTY THOMAS MD on Jun 17 2024 3:29PM EST [facility] Radiology Study observation (narrative) [facility] XR Chest PA and LateralOrder ed By: Ccf Provider on 06-17-2024 [facility] CNOVon 06-13-2024 CNOV Normal [facility] Testosterone, Serum Totalon 06-06-2024 Testosterone [Mass/Vol] 385.78 ng/dL Normal [facility] Comment on above: Result Comment: CENT RAL 90% REFERENCE RANGES MALE AGE <50 197.44 - 669.58 ng/dL MALE AGE > or = 50 187.72 - 684.19 ng/dL FEMALE AGE <50 8.38 - 35.01 ng/dL FEMALE AGE > or = 50 <7.00 - 35.92 ng/dL Effective as of 01/12/21 Performed By: #### L 499.0042 #### [facility] [address] [place], [address] PSA,Total - Annual Screenon 06-04-2024 PSA,TOT SCREEN 3.40 ng/mL Normal 0.00-4.00 [facility] Comment on above: Result Comment: This test was performed using the TPSA assay method for the [employer] chemistry system. Values obtained with different assay methods cannot be used interchangably. When changing PSA assays in the course of monitoring a patient, additional sequential testing should be carried out to confirm baseline values. Performed By: #### L 499.0042 #### [facility] [address] [place], [place], [address] CNPNon 04-26-2024 CNPN Normal [facility] Bacteria Ur Culton Bacteria identified Cx Nom (U) ORGANISM ID: 1 <10,000 CFU/ml Normal urogenital richard Normal [facility] Comment on above: Performed By: #### 6 30-4 ####[facility] LABCLIA [id number] [place] [address] [place] CBC W Auto Differential pane l (Bld)on 04-25-2024 Basophils (Bld) [#/Vol] 0.03 10*3/uL [facility] Basophils/100 WBC (Bld) 0.5 % [facility] Differential cell count method Nom (Bld) Auto [facility] Eosinophils (Bld) [#/Vol] 0.08 10*3/uL [facility] Eosinophils/100 WBC (Bld) 1.3 % [facility] Erythrocyte distribution width (RBC) [Ratio] 13.0 % 11.5 - 15.0 % [facility] Hematocrit (Bld) [Volume fraction] 45.8 % 39.0 - 51.0 % [facility] Hemoglobin (Bld) [Mass/Vol] 15.3 g/dL 13.0 - 17.0 g/dL [facility] Immature granulocytes (Bld) [#/Vol] NINF [facility] Immature granulocytes/100 WBC (Bld) 0.3 % [facility] Interpretation and review of laboratory results Abnormal [facility] Lymphocytes (Bld) [#/Vol] 0.90 10*3/uL Low [facility] Lymphocytes/100 WBC (Bld) 14.8 % [facility] MCH (RBC) [Entitic mass] 29.2 pg 26.0 - 34.0 pg [facility] MCHC (RBC) [Mass/Vol] 33.4 g/dL 30.5 - 36.0 g/dL [facility] MCV (RBC) [Entitic vol] 87.4 fL 80.0 - 100.0 fL [facility] Monocytes (Bld) [#/Vol] 0.53 10*3/uL [facility] Monocytes/100 WBC (Bld) 8.7 % [facility] Neutrophils (Bld) [#/Vol] 4.54 10*3/uL [facility] Neutrophils/100 WBC (Bld) 74.4 % [facility] Nucleated RBC (Bld) [#/Vol] NINF [facility] Nucleated RBC/100 WBC (Bld) [Ratio] 0.0 % /100 WBC [facility] Platelet mean volume (Bld) [Entitic vol] 11.4 fL 9.0 - 12.7 fL [facility] Platelets (Bld) [#/Vol] 169 10*3/uL [facility] RBC (Bld) [#/Vol] 5.24 10*6/uL 4.20 - 6.00 m/uL [facility] WBC (Bld) [#/Vol] 6.10 10*3/uL [facility] Basophils (Bld) [#/Vol] 0.03 10*3/uL Normal <0.11 [facility] Comment on above: Order Comment: Speci men Type: BLOOD SPECIMENOrdering Facility: [facility] Address: [address] [place], [place] [address] Performed By: #### 5 7021-8, 43736-7 ####[facility] LABCLIA [id number] [place] [address] [place] Basophils/100 WBC (Bld) 0.5 % Normal [facility] Comment on above: Order Comment: Speci men Type: BLOOD SPECIMENOrdering Facility: [facility] Address: [address] [place] [address] Performed By: #### 5 7021-8, 63260-9 ####[facility] LABCLIA [id number] [place] [address] [place] Differential cell count method Nom (Bld) Auto Normal [facility] Comment on above: Order Comment: Speci men Type: BLOOD SPECIMENOrdering Facility: [facility] Address: [address] [place] [address] Performed By: #### 5 7021-8, 05938-2 ####[facility] LABCLIA [id number] [place] [address] [place] Eosinophils (Bld) [#/Vol] 0.08 10*3/uL Normal <0.46 [facility] Comment on above: Order Comment: Speci men Type: BLOOD SPECIMENOrdering Facility: [facility] Address: [address] [place] [address] Performed By: #### 5 7021-8, 83889-3 ####[facility] LABCLIA [id number] [place] [address] [place] Eosinophils/100 WBC (Bld) 1.3 % Normal [facility] Comment on above: Order Comment: Speci men Type: BLOOD SPECIMENOrdering Facility: [facility] Address: [address] [place] [address] Performed By: #### 5 7021-8, 92340-3 ####[facility] LABCLIA [id number] [place] [address] [place] Erythrocyte distribution width (RBC) [Ratio] 13.0 % Normal 11.5-15.0 [facility] Comment on above: Order Comment: Speci men Type: BLOOD SPECIMENOrdering Facility: [facility] Address: [address] [place] [address] Performed By: #### 5 7021-8, 78942-6 ####[facility] LABCLIA [id number] [place] [address] [place] Hematocrit (Bld) [Volume fraction] 45.8 % Normal 39.0-51.0 [facility] Comment on above: Order Comment: Speci men Type: BLOOD SPECIMENOrdering Facility: [facility] Address: [address] [place] [address] Performed By: #### 5 7021-8, 50139-2 ####[facility] LABCLIA [id number] [place] [address] [place] Hemoglobin (Bld) [Mass/Vol] 15.3 g/dL Normal 13.0-17.0 [facility] Comment on above: Order Comment: Speci men Type: BLOOD SPECIMENOrdering Facility: [facility] Address: [address] [place] [address] Performed By: #### 5 7021-8, 71269-0 ####[facility] LABIA [id number] [place] [address] [place] Immature granulocytes (Bld) [#/Vol] 10*3/uL Normal <0.10 [facility] Comment on above: Order Comment: Speci men Type: BLOOD SPECIMENOrdering Facility: [facility] Address: [address] [place] [address] Performed By: #### 5 7021-8, 27534-2 ####[facility] LABCLIA [id number] [place] [address] [place] Immature granulocytes/100 WBC (Bld) 0.3 % Normal [facility] Comment on above: Order Comment: Speci men Type: BLOOD SPECIMENOrdering Facility: [facility] Address: [address] [place] [address] Performed By: #### 5 7021-8, 04533-5 ####[facility] LABCLIA [id number] [place] [address] [place] Lymphocytes (Bld) [#/Vol] 0.90 10*3/uL Low 1.00-4.00 [facility] Comment on above: Order Comment: Speci men Type: BLOOD SPECIMENOrdering Facility: [facility] Address: [address] [place] [address] Performed By: #### 5 7021-8, 15114-0 ####[facility] LABIA [id number] [place] [address] [place] Lymphocytes/100 WBC (Bld) 14.8 % Normal [facility] Comment on above: Order Comment: Speci men Type: BLOOD SPECIMENOrdering Facility: [facility] Address: [address] [place] [address] Performed By: #### 5 7021-8, 71107-7 ####[facility] LABIA [id number] [place] [address] [place] MCH (RBC) [Entitic mass] 29.2 pg Normal 26.0-34.0 [facility] Comment on above: Order Comment: Speci men Type: BLOOD SPECIMENOrdering Facility: [facility] Address: [address] [place] [address] Performed By: #### 5 7021-8, 17547-5 ####[facility] LABCLIA [id number] [place] [address] [place] MCHC (RBC) [Mass/Vol] 33.4 g/dL Normal 30.5-36.0 [facility] Comment on above: Order Comment: Speci men Type: BLOOD SPECIMENOrdering Facility: [facility] Address: [address] [place] [address] Performed By: #### 5 7021-8, 03240-3 ####[facility] LABCLIA [id number] [place] [id number] [place] MCV (RBC) [Entitic vol] 87.4 fL Normal 80.0-100.0 [facility] Comment on above: Order Comment: Speci men Type: BLOOD SPECIMENOrdering Facility: [facility] Address: [address] [place] [address] Performed By: #### 5 7021-8, 95317-5 ####[facility] LABCLIA [id number] [place] [address] [place] Monocytes (Bld) [#/Vol] 0.53 10*3/uL Normal <0.87 [facility] Comment on above: Order Comment: Speci men Type: BLOOD SPECIMENOrdering Facility: [facility] Address: [address] [place] [address] Performed By: #### 5 7021-8, 24706-6 ####[facility] LABIA [id number] [place] [address] [place] Monocytes/100 WBC (Bld) 8.7 % Normal [facility] Comment on above: Order Comment: Speci men Type: BLOOD SPECIMENOrdering Facility: [facility] Address: [address] [place] [address] Performed By: #### 5 7021-8, 06925-7 ####[facility] LABCLIA [id number] [place] [id number] [place] Neutrophils (Bld) [#/Vol] 4.54 10*3/uL Normal 1.45-7.50 [facility] Comment on above: Order Comment: Speci men Type: BLOOD SPECIMENOrdering Facility: [facility] Address: [address] [place] [address] Performed By: #### 5 7021-8, 22465-1 ####[facility] LABCLIA [id number] [place] [address] [place] Neutrophils/100 WBC (Bld) 74.4 % Normal [facility] Comment on above: Order Comment: Speci men Type: BLOOD SPECIMENOrdering Facility: [facility] Address: [address] [place] [address] Performed By: #### 5 7021-8, 64734-0 ####[facility] LABCLIA [id number] [place] [address] [place] Nucleated RBC (Bld) [#/Vol] 10*3/uL Normal <0.01 [facility] Comment on above: Order Comment: Speci men Type: BLOOD SPECIMENOrdering Facility: [facility] Address: [address] [place] [address] Performed By: #### 5 7021-8, 49418-4 ####[facility] LABCLIA [id number] [place] [address] [place] Nucleated RBC/100 WBC (Bld) [Ratio] 0.0 /100 WBC Normal [facility] Comment on above: Order Comment: Speci men Type: BLOOD SPECIMENOrdering Facility: [facility] Address: [address] [place] [address] Performed By: #### 5 7021-8, 08859-6 ####[facility] LABCLIA [id number] [place] [address] [place] Platelet mean volume (Bld) [Entitic vol] 11.4 fL Normal 9.0-12.7 [facility] Comment on above: Order Comment: Speci men Type: BLOOD SPECIMENOrdering Facility: [facility] Address: [address] [place] [address] Performed By: #### 5 7021-8, 46155-9 ####[facility] LABCLIA [id number] [place] [address] [place] Platelets (Bld) [#/Vol] 169 10*3/uL Normal 150-400 [facility] Comment on above: Order Comment: Speci men Type: BLOOD SPECIMENOrdering Facility: [facility] Address: [address] [place] [address] Performed By: #### 5 7021-8, 94888-0 ####[facility] LABCLIA [id number] [place] [address] [place] RBC (Bld) [#/Vol] 5.24 10*6/uL Normal 4.20-6.00 [facility] Comment on above: Order Comment: Speci men Type: BLOOD SPECIMENOrdering Facility: [facility] Address: [address] [place] [address] Performed By: #### 5 7021-8, 56653-7 ####[facility] LABCLIA [id number] [place] [address] [place] WBC (Bld) [#/Vol] 6.10 10*3/uL Normal 3.70-11.00 [facility] Comment on above: Order Comment: Speci men Type: BLOOD SPECIMENOrdering Facility: [facility] Address: [address] [place] [address] Performed By: #### 5 7021-8, 23464-5 ####[facility] LABCLIA [id number] [place] [address] [place] CNOVon 04-25-2024 CNOV Normal [facility] Comprehensive metabolic 2000 panelon 04-25-2024 Albumin [Mass/Vol] 4.4 g/dL Normal 3.9-4.9 [facility] Comment on above: Order Comment: Speci men Type: BLOOD SPECIMENOrdering Facility: [facility] Address: [address] [place] [address] Performed By: #### 2 4323-8 ####[facility] LABCLIA [id number] [place] [address] [place] ALP [Catalytic activity/Vol] 72 U/L Normal 38-113 [facility] Comment on above: Order Comment: Speci men Type: BLOOD SPECIMENOrdering Facility: [facility] Address: [address] [id number] Performed By: #### 2 4323-8 ####[facility] LABCLIA [id number] [place] [id number] [place] ALT [Catalytic activity/Vol] 39 U/L Normal 10-54 [facility] Comment on above: Order Comment: Speci men Type: BLOOD SPECIMENOrdering Facility: [facility] Address: [address] [place] [address] Performed By: #### 2 4323-8 ####[facility] LABCLIA [id number] [place] [address] [place] Anion gap [Moles/Vol] 11 mmol/L Normal 8-15 [facility] Comment on above: Order Comment: Speci men Type: BLOOD SPECIMENOrdering Facility: [facility] Address: [address] [place] [address] Performed By: #### 2 4323-8 ####[facility] LABCLIA [id number] [place] [address] [place] AST [Catalytic activity/Vol] 24 U/L Normal 14-40 [facility] Comment on above: Order Comment: Speci men Type: BLOOD SPECIMENOrdering Facility: [facility] Address: [address] [place] [address] Performed By: #### 2 4323-8 ####[facility] LABCLIA [id number] [place] [address] [place] Bilirubin [Mass/Vol] 0.7 mg/dL Normal 0.2-1.3 [facility] Comment on above: Order Comment: Speci men Type: BLOOD SPECIMENOrdering Facility: [facility] Address: [address] [place] [address] Performed By: #### 2 4323-8 ####[facility] LABCLIA [id number] [facility] [address] [address] [place] Calcium [Mass/Vol] 9.2 mg/dL Normal 8.5-10.2 [facility] Comment on above: Order Comment: Speci men Type: BLOOD SPECIMENOrdering Facility: [facility] Address: [address] [place] [address] Performed By: #### 2 4323-8 ####[facility] LABCLIA [id number] [facility] [address] [place] Chloride [Moles/Vol] 101 mmol/L Normal 98-107 [facility] Comment on above: Order Comment: Speci men Type: BLOOD SPECIMENOrdering Facility: [facility] Address: [address] [place] [address] Performed By: #### 2 4323-8 ####[facility] LABCLIA [id number] [place] [address] [place] CO2 [Moles/Vol] 27 mmol/L Normal 22-30 [facility] Comment on above: Order Comment: Speci men Type: BLOOD SPECIMENOrdering Facility: [facility] Address: [address] [place] [address] Performed By: #### 2 4323-8 ####[facility] LABCLIA [id number] [place] [address] [place] Creatinine [Mass/Vol] 0.97 mg/dL Normal 0.73-1.22 [facility] Comment on above: Order Comment: Speci men Type: BLOOD SPECIMENOrdering Facility: [facility] Address: [address] [place] [address] Performed By: #### 2 4323-8 ####[facility] LABCLIA [id number] [place] [address] [place] Creatinine and Glomerular filtration rate.predicted panel (S/P/Bld) 86 mL/min/1.73m??? Normal >=60 [facility] Comment on above: Order Comment: Dunia peters Type: BLOOD SPECIMENOrdering Facility: [facility] Address: [address] [place] [address] Result Comment: Jayshree mated Glomerular Filtration Rate [...] actual GFR. Performed By: #### 2 4323-8 ####[facility] LABIA [id number] [place] [address] [place] Glucose [Mass/Vol] 173 mg/dL High 74-99 [facility] Comment on above: Order Comment: Dunia peters Type: BLOOD SPECIMENOrdering Facility: [facility] Address: [address] [place] [address] Result Comment: The [place] Diabetes Association (ADA) provides guidance for cutoff values for fasting glucose and random glucose. The ADA defines fasting as no caloric intake for at least 8 hours. Fasting plasma glucose results between 100 to 125 mg/dL indicate increased risk for diabetes (prediabetes).Fasting plasma glucose results greater than or equal to 126 mg/dL meet the criteria for diagnosis of diabetes. In the absence of unequivocal hyperglycemia, results should be confirmed by repeat testing. In a patient with classic symptoms of hyperglycemia or hyperglycemic crisis, random plasma glucose results greater than or equal to 200 mg/dL meet the criteria for diagnosis of diabetes.Reference: Standards of Medical Care in Diabetes 2016, [place] [employer] Association. Diabetes Care. 2016.39(Suppl 1). Performed By: #### 2 4323-8 ####[facility] LABIA [id number] [place] [address] [place] Potassium [Moles/Vol] 4.1 mmol/L Normal 3.7-5.1 [facility] Comment on above: Order Comment: Dunia peters Type: BLOOD SPECIMENOrdering Facility: [facility] Address: [address] [place] [address] Performed By: #### 2 4323-8 ####[facility] LABCLIA [id number] [place] [address] [place] Protein [Mass/Vol] 7.3 g/dL Normal 6.3-8.0 [facility] Comment on above: Order Comment: Speci men Type: BLOOD SPECIMENOrdering Facility: [facility] Address: [address] [place] [address] Performed By: #### 2 4323-8 ####[facility] LABCLIA [id number] [place] [address] [place] Sodium [Moles/Vol] 139 mmol/L Normal 136-144 [facility] Comment on above: Order Comment: Speci men Type: BLOOD SPECIMENOrdering Facility: [facility] Address: [address] [place] [address] Performed By: #### 2 4323-8 ####[facility] LABCLIA [id number] [place] [address] [place] Urea nitrogen [Mass/Vol] 15 mg/dL Normal 9-24 [facility] Comment on above: Order Comment: Speci men Type: BLOOD SPECIMENOrdering Facility: [facility] Address: [address] [place] [address] Performed By: #### 2 4323-8 ####[facility] LABCLIA [id number] [place] [address] [place] HbA1c (Bld)on 04-25-2024 Average glucose Estimated from glycated hemoglobin (Bld) [Mass/Vol] 105 mg/dL Normal [facility] Comment on above: Order Comment: Speci men Type: BLOOD SPECIMENOrdering Facility: [facility] Address: [address] [place] [address] Result Comment: eAG: (Estimated average glucose) is a calculated value from HgbA1c and is service center representative of the average blood glucose level in the last 2-3 month period. Performed By: #### 5 7021-8, 82287-1 ####[facility] LABCLIA [id number] [place] [address] [place] HbA1c (Bld) [Mass fraction] 5.3 % Normal 4.3-5.6 [facility] Comment on above: Order Comment: Speci men Type: BLOOD SPECIMENOrdering Facility: [facility] Address: [address] [place] [address] Result Comment: [place] Diabetes Association guidelines indicate that patients with HgbA1c in the range 5.7-6.4% are at increased risk for development of diabetes, and intervention by lifestyle modification may be beneficial. HgbA1c greater or equal to 6.5% is considered diagnostic of diabetes. Performed By: #### 5 7021-8, 78055-2 ####[facility] LABIA [id number] [place] [address] [place] Urinalysis complete panel (U )on 04-25-2024 Bacteria LM.HPF (Urine sed) [#/Area] Negative Normal Negative [facility] Comment on above: Order Comment: Speci men Type: URINE SPECIMENOrdering Facility: [facility] Address: [address] [place] [address] Performed By: #### 2 4356-8 ####[facility] LABIA [id number] [place] [address] [place] Bilirubin Ql (U) Negative Normal Negative [facility] Comment on above: Order Comment: Speci men Type: URINE SPECIMENOrdering Facility: [facility] Address: [address] [place] [address] Performed By: #### 2 4356-8 ####[facility] LABIA [id number] [place] [address] [place] Clarity (Unsp spec) Clear Normal Clear [facility] Comment on above: Order Comment: Speci men Type: URINE SPECIMENOrdering Facility: [facility] Address: [address] [place] [address] Performed By: #### 2 4356-8 ####[facility] LABCLIA [id number] [place] [address] [place] [facility] Color (U) Yellow Normal Yellow [facility] Comment on above: Order Comment: Speci men Type: URINE SPECIMENOrdering Facility: [facility] Address: [address] [place] [address] Performed By: #### 2 4356-8 ####[facility] LABCLIA [id number] [place] [address] [place] Epithelial cells LM.HPF (Urine sed) [#/Area] None Seen Normal [facility] Comment on above: Order Comment: Speci men Type: URINE SPECIMENOrdering Facility: [facility] Address: [address] [place] [address] Performed By: #### 2 4356-8 ####[facility] LABCLIA [id number] [place] [address] [place] Glucose Test strip (U) [Mass/Vol] Trace Abnormal Negative [facility] Comment on above: Order Comment: Speci men Type: URINE SPECIMENOrdering Facility: [facility] Address: [address] [place] [address] Performed By: #### 2 4356-8 ####[facility] LABCLIA [id number] [place] [address] [place] Hemoglobin Ql (U) Negative Normal Negative [facility] Comment on above: Order Comment: Speci men Type: URINE SPECIMENOrdering Facility: [facility] Address: [address] [place] [address] Performed By: #### 2 4356-8 ####[facility] LABCLIA [id number] [place] [address] [place] Hyaline casts (Urine sed) [#/Area] 0 /[LPF] Normal 0 /LPF [facility] Comment on above: Order Comment: Speci men Type: URINE SPECIMENOrdering Facility: [facility] Address: [address] [place] [address] Performed By: #### 2 4356-8 ####[facility] LABCLIA [id number] [place] [address] [place] Ketones Ql (U) Negative Normal Negative [facility] Comment on above: Order Comment: Speci men Type: URINE SPECIMENOrdering Facility: [facility] Address: [address] [place] [address] Performed By: #### 2 4356-8 ####[facility] LABCLIA [id number] [place] [address] [place] Leukocyte esterase Test strip Ql (U) Negative Normal Negative [facility] Comment on above: Order Comment: Speci men Type: URINE SPECIMENOrdering Facility: [facility] Address: [address] [place] [address] Performed By: #### 2 4356-8 ####[facility] LABCLIA [id number] [place] [address] [place] Nitrite Ql (U) Negative Normal Negative [facility] Comment on above: Order Comment: Speci men Type: URINE SPECIMENOrdering Facility: [facility] Address: [address] [place] [address] Performed By: #### 2 4356-8 ####[facility] LABCLIA [id number] [place] [address] [place] pH (U) 7.5 [pH] Normal <8.5 [facility] Comment on above: Order Comment: Speci men Type: URINE SPECIMENOrdering Facility: [facility] Address: [address] [place] [address] Performed By: #### 2 4356-8 ####[facility] LABCLIA [id number] [place] [address] [place] Protein (U) [Mass/Vol] Negative Normal Negative [facility] Comment on above: Order Comment: Speci men Type: URINE SPECIMENOrdering Facility: [facility] Address: [address] [place] [address] Performed By: #### 2 4356-8 ####[facility] LABIA [id number] [place] [address] [place] RBC LM.HPF (Urine sed) [#/Area] 0-2 /HPF Normal 0-2 /HPF [facility] Comment on above: Order Comment: Speci men Type: URINE SPECIMENOrdering Facility: [facility] Address: [address] [place] [address] Performed By: #### 2 4356-8 ####[facility] LABIA [id number] [place] [address] [place] Specific gravity (U) [Rel density] 1.021 Normal 1.005-1.03 0 [facility] Comment on above: Order Comment: Speci men Type: URINE SPECIMENOrdering Facility: [facility] Address: [address] [place] [address] Performed By: #### 2 4356-8 ####[facility] LABIA [id number] [place] [address] [place] Urobilinogen Ql (U) 0.2 EU/dL Normal 0.2-1.0 EU/dL [facility] Comment on above: Order Comment: Speci men Type: URINE SPECIMENOrdering Facility: [facility] Address: [address] [place] [address] Performed By: #### 2 4356-8 ####[facility] LABIA [id number] [place] [address] [place] WBC LM.HPF (Urine sed) [#/Area] 0-5 /HPF Normal 0-5 /HPF [facility] Comment on above: Order Comment: Speci men Type: URINE SPECIMENOrdering Facility: [facility] Address: [address] [id number] Performed By: #### 2 4356-8 ####[facility] LABCLIA [id number] [id number] [address] [place] XR CHEST 2V FRONTAL/LATon XR CHEST 2V FRONTAL/LAT Normal [facility] XR Chest PA and Lateralon IMPRESSION: No acute radiographic abnormality. Coding Spec: PSCB Transcribe Date/Time: Apr 25 2024 2:18P Dictated by : ASHLEY MONTANO MD This examination was interpreted and the report reviewed and electronically signed by: ASHLEY MONTANO MD on Apr 25 2024 2:19PM [facility] DIVISION OF RADIOLOGY * * *Final [...] the thoracic spine. DIVISION OF RADIOLOGY Provider, [facility] - 04/25/2024 * * *Final Report* [...] spine. IMPRESSION IMPRESSION: No acute radiographic abnormality. Coding Spec: PSCB Transcribe Date/Time: Apr 25 2024 2:18P Dictated by : ASHLEY MONTANO MD This examination was interpreted and the report reviewed and electronically signed by: ASHLEY MONTANO MD on Apr 25 2024 2:19PM EST [facility] Radiology Study observation (narrative) [facility] XR Chest PA and LateralOrder ed By: Ccf Provider on 04-25-2024 [facility] CNOVon 04-10-2024 CNOV Normal [facility] CNOVon 03-13-2024 CNOV Normal [facility] CBC W Auto Differential pane l (Bld)on 03-08-2024 Basophils (Bld) [#/Vol] [facility] Basophils/100 WBC (Bld) 0.2 % [facility] Differential cell count method Nom (Bld) Auto [facility] Eosinophils (Bld) [#/Vol] 0.06 10*3/uL [facility] Eosinophils/100 WBC (Bld) 1.4 % [facility] Erythrocyte distribution width (RBC) [Ratio] 13.4 % 11.5 - 15.0 % [facility] Hematocrit (Bld) [Volume fraction] 43.8 % 39.0 - 51.0 % [facility] Hemoglobin (Bld) [Mass/Vol] 14.7 g/dL 13.0 - 17.0 g/dL [facility] Immature granulocytes (Bld) [#/Vol] [facility] Immature granulocytes/100 WBC (Bld) 0.2 % [facility] Interpretation and review of laboratory results Abnormal [facility] Lymphocytes (Bld) [#/Vol] 0.82 10*3/uL Low [facility] Lymphocytes/100 WBC (Bld) 19.8 % [facility] MCH (RBC) [Entitic mass] 29.3 pg 26.0 - 34.0 pg [facility] MCHC (RBC) [Mass/Vol] 33.6 g/dL 30.5 - 36.0 g/dL [facility] MCV (RBC) [Entitic vol] 87.4 fL 80.0 - 100.0 fL [facility] Monocytes (Bld) [#/Vol] 0.31 10*3/uL [facility] Monocytes/100 WBC (Bld) 7.5 % [facility] Neutrophils (Bld) [#/Vol] 2.94 10*3/uL [facility] Neutrophils/100 WBC (Bld) 70.9 % [facility] Nucleated RBC (Bld) [#/Vol] NINF [facility] Nucleated RBC/100 WBC (Bld) [Ratio] 0.0 % /100 WBC [facility] Platelet mean volume (Bld) [Entitic vol] 11.7 fL 9.0 - 12.7 fL [facility] Platelets (Bld) [#/Vol] 154 10*3/uL [facility] RBC (Bld) [#/Vol] 5.01 10*6/uL 4.20 - 6.00 m/uL [facility] WBC (Bld) [#/Vol] 4.15 10*3/uL [facility] Basophils (Bld) [#/Vol] 10*3/uL Normal <0.11 [facility] Comment on above: Order Comment: Speci men Type: BLOOD SPECIMENOrdering Facility: [facility] Address: [address] [place] [address] Performed By: #### 5 7021-8 ####[facility] LABCLIA [id number] [place] [address] [place] Basophils/100 WBC (Bld) 0.2 % Normal [facility] Comment on above: Order Comment: Speci men Type: BLOOD SPECIMENOrdering Facility: [facility] Address: [address] [place] [address] Performed By: #### 5 7021-8 ####[facility] LABCLIA [id number] [place] [address] [place] Differential cell count method Nom (Bld) Auto Normal [facility] Comment on above: Order Comment: Speci men Type: BLOOD SPECIMENOrdering Facility: [facility] Address: [address] [place] [address] Performed By: #### 5 7021-8 ####[facility] LABCLIA [id number] [place] [address] [place] Eosinophils (Bld) [#/Vol] 0.06 10*3/uL Normal <0.46 [facility] Comment on above: Order Comment: Speci men Type: BLOOD SPECIMENOrdering Facility: [facility] Address: [address] [place] [address] Performed By: #### 5 7021-8 ####[facility] LABCLIA [id number] [place] [address] [place] Eosinophils/100 WBC (Bld) 1.4 % Normal [facility] Comment on above: Order Comment: Speci men Type: BLOOD SPECIMENOrdering Facility: [facility] Address: [address] [place] [address] Performed By: #### 5 7021-8 ####[facility] LABCLIA [id number] [place] [address] [place] Erythrocyte distribution width (RBC) [Ratio] 13.4 % Normal 11.5-15.0 [facility] Comment on above: Order Comment: Speci men Type: BLOOD SPECIMENOrdering Facility: [facility] Address: [address] [place] [address] Performed By: #### 5 7021-8 ####[facility] LABCLIA [id number] [place] [address] [place] Hematocrit (Bld) [Volume fraction] 43.8 % Normal 39.0-51.0 [facility] Comment on above: Order Comment: Speci men Type: BLOOD SPECIMENOrdering Facility: [facility] Address: [address] [place] [address] Performed By: #### 5 7021-8 ####[facility] LABCLIA [id number] [place] [address] [place] Hemoglobin (Bld) [Mass/Vol] 14.7 g/dL Normal 13.0-17.0 [facility] Comment on above: Order Comment: Speci men Type: BLOOD SPECIMENOrdering Facility: [facility] Address: [address] [place] [address] Performed By: #### 5 7021-8 ####[facility] LABCLIA [id number] [place] [address] [place] Immature granulocytes (Bld) [#/Vol] 10*3/uL Normal <0.10 [facility] Comment on above: Order Comment: Speci men Type: BLOOD SPECIMENOrdering Facility: [facility] Address: [address] [place] [address] Performed By: #### 5 7021-8 ####[facility] LABCLIA [id number] [place] [address] [place] Immature granulocytes/100 WBC (Bld) 0.2 % Normal [facility] Comment on above: Order Comment: Speci men Type: BLOOD SPECIMENOrdering Facility: [facility] Address: [address] [place] [address] Performed By: #### 5 7021-8 ####[facility] LABIA [id number] [place] [address] [place] Lymphocytes (Bld) [#/Vol] 0.82 10*3/uL Low 1.00-4.00 [facility] Comment on above: Order Comment: Speci men Type: BLOOD SPECIMENOrdering Facility: [facility] Address: [address] [place] [address] Performed By: #### 5 7021-8 ####[facility] LABCLIA [id number] [place] [address] [place] Lymphocytes/100 WBC (Bld) 19.8 % Normal [facility] Comment on above: Order Comment: Speci men Type: BLOOD SPECIMENOrdering Facility: [facility] Address: [address] [place] [address] Performed By: #### 5 7021-8 ####[facility] [id number] [place] [address] [place] MCH (RBC) [Entitic mass] 29.3 pg Normal 26.0-34.0 [facility] Comment on above: Order Comment: Speci men Type: BLOOD SPECIMENOrdering Facility: [facility] Address: [address] [place] [address] Performed By: #### 5 7021-8 ####[facility] [id number] [place] [address] [place] MCHC (RBC) [Mass/Vol] 33.6 g/dL Normal 30.5-36.0 [facility] Comment on above: Order Comment: Speci men Type: BLOOD SPECIMENOrdering Facility: [facility] Address: [address] [place] [address] Performed By: #### 5 7021-8 ####[facility] [id number] [place] [address] [place] MCV (RBC) [Entitic vol] 87.4 fL Normal 80.0-100.0 [facility] Comment on above: Order Comment: Speci men Type: BLOOD SPECIMENOrdering Facility: [facility] Address: [address] [place] [address] Performed By: #### 5 7021-8 ####[facility] [id number] [place] [address] [place] Monocytes (Bld) [#/Vol] 0.31 10*3/uL Normal <0.87 [facility] Comment on above: Order Comment: Speci men Type: BLOOD SPECIMENOrdering Facility: [facility] Address: [address] [place] [address] Performed By: #### 5 7021-8 ####[facility] LABCLIA [id number] [address] [address] [place] Monocytes/100 WBC (Bld) 7.5 % Normal [facility] Comment on above: Order Comment: Speci men Type: BLOOD SPECIMENOrdering Facility: [facility] Address: [address] [place] [address] Performed By: #### 5 7021-8 ####[facility] LABCLIA [id number] [place] [address] [place] Neutrophils (Bld) [#/Vol] 2.94 10*3/uL Normal 1.45-7.50 [facility] Comment on above: Order Comment: Speci men Type: BLOOD SPECIMENOrdering Facility: [facility] Address: [address] [place] [address] Performed By: #### 5 7021-8 ####[facility] LABCLIA [id number] [place] [address] [place] Neutrophils/100 WBC (Bld) 70.9 % Normal [facility] Comment on above: Order Comment: Speci men Type: BLOOD SPECIMENOrdering Facility: [facility] Address: [address] [place] [address] Performed By: #### 5 7021-8 ####[facility] LABCLIA [id number] [place] [address] [place] Nucleated RBC (Bld) [#/Vol] 10*3/uL Normal <0.01 [facility] Comment on above: Order Comment: Speci men Type: BLOOD SPECIMENOrdering Facility: [facility] Address: [address] [place] [address] Performed By: #### 5 7021-8 ####[facility] LABCLIA [id number] [address] [address] [place] Nucleated RBC/100 WBC (Bld) [Ratio] 0.0 /100 WBC Normal [facility] Comment on above: Order Comment: Speci men Type: BLOOD SPECIMENOrdering Facility: [facility] Address: [address] [place] [address] Performed By: #### 5 7021-8 ####[facility] LABIA [id number] [place] [address] [place] Platelet mean volume (Bld) [Entitic vol] 11.7 fL Normal 9.0-12.7 [facility] Comment on above: Order Comment: Speci men Type: BLOOD SPECIMENOrdering Facility: [facility] Address: [address] [place] [address] Performed By: #### 5 7021-8 ####[facility] LABIA [id number] [place] [address] [place] Platelets (Bld) [#/Vol] 154 10*3/uL Normal 150-400 [facility] Comment on above: Order Comment: Speci men Type: BLOOD SPECIMENOrdering Facility: [facility] Address: [address] [place] [address] Performed By: #### 5 7021-8 ####[facility] LABIA [id number] [place] [address] [place] RBC (Bld) [#/Vol] 5.01 10*6/uL Normal 4.20-6.00 [facility] Comment on above: Order Comment: Speci men Type: BLOOD SPECIMENOrdering Facility: [facility] Address: [address] [place] [address] Performed By: #### 5 7021-8 ####[facility] LABIA [id number] [place] [address] [place] WBC (Bld) [#/Vol] 4.15 10*3/uL Normal 3.70-11.00 [facility] Comment on above: Order Comment: Speci men Type: BLOOD SPECIMENOrdering Facility: [facility] Address: [address] [place] [address] Performed By: #### 5 7021-8 ####[facility] LABCLIA [id number] [facility] CENTERAung [address] [id number], [place] [address] [place] CNOVon 03-08-2024 CNOV Normal [facility] CNPNon 03-08-2024 CNPN Normal [facility] CT ABD/PEL W IVCONon 024 CT ABD/PEL W IVCON * * *Final Report* * * DATE OF EXAM: Mar 08 2024 4:00PM [facility] 0530 - CT ABD/PEL W [...] from 2019. No new lesions or hepatomegaly Coding Spec: [facility] Transcribe Date/Time: Mar 08 2024 4:06P Dictated by : KHANH GERARD MD This examination was interpreted and the report reviewed and electronically signed by: KHANH GERARD MD on Mar 08 2024 4:12PM EST [id number] Normal [facility] CT Abdomen and Pelvis W cont [...] from 2019. No new lesions or hepatomegaly Coding Spec: [facility] Transcribe Date/Time: Mar 08 2024 4:06P Dictated by : KHANH GERARD MD This examination was interpreted and the report reviewed and electronically signed by: KHANH GERARD MD on Mar 08 2024 4:12PM EST [facility] * * *Final Report* * * DATE OF EXAM: Mar 08 2024 4:00PM [facility] 0530 - CT ABD/PEL W [...] lower lumbar posterior decompression Lower thorax: Clear [facility] [place] - 03/08/2024 * * *Final Report* * * DATE OF EXAM: Mar 08 2024 4:00PM [facility] 0530 - CT ABD/PEL W [...] from 2019. No new lesions or hepatomegaly Coding Spec: [facility] Transcribe Date/Time: Mar 08 2024 4:06P Dictated by : KHANH GERARD MD This examination was interpreted and the report reviewed and electronically signed by: KHANH GERARD MD on Mar 08 2024 4:12PM EST [facility] Radiology Study observation (narrative) [facility] CT Abdomen and Pelvis W cont rast IVOrdered By: Ccf Provider on 03-08-2024 [facility] Comprehensive metabolic 2000 panelon 03-08-2024 Albumin [Mass/Vol] 4.4 g/dL Normal 3.9-4.9 [facility] Comment on above: Order Comment: Speci men Type: BLOOD SPECIMENOrdering Facility: [facility] Address: [address] [place] [address] Performed By: #### 2 4323-8 ####[facility] LABCLIA [id number] [place] [address] [place] ALP [Catalytic activity/Vol] 78 U/L Normal 38-113 [facility] Comment on above: Order Comment: Speci men Type: BLOOD SPECIMENOrdering Facility: [facility] Address: [address] [place] [address] Performed By: #### 2 4323-8 ####[facility] LABCLIA [id number] [place] [address] [place] ALT [Catalytic activity/Vol] 31 U/L Normal 10-54 [facility] Comment on above: Order Comment: Speci men Type: BLOOD SPECIMENOrdering Facility: [facility] Address: [address] [place] [address] Performed By: #### 2 4323-8 ####[facility] LABCLIA [id number] [place] [address] [place] Anion gap [Moles/Vol] 9 mmol/L Normal 8-15 [facility] Comment on above: Order Comment: Speci men Type: BLOOD SPECIMENOrdering Facility: [facility] Address: [address] [place] [address] Performed By: #### 2 4323-8 ####[facility] LABCLIA [id number] [place] [address] [place] AST [Catalytic activity/Vol] 23 U/L Normal 14-40 [facility] Comment on above: Order Comment: Speci men Type: BLOOD SPECIMENOrdering Facility: [facility] Address: [address] [place] [address] Performed By: #### 2 4323-8 ####[facility] LABCLIA [id number] [place] [address] [place] Bilirubin [Mass/Vol] 0.8 mg/dL Normal 0.2-1.3 [facility] Comment on above: Order Comment: Speci men Type: BLOOD SPECIMENOrdering Facility: [facility] Address: [address] [place] [address] Performed By: #### 2 4323-8 ####[facility] LABCLIA [id number] [place] [address] [place] Calcium [Mass/Vol] 9.3 mg/dL Normal 8.5-10.2 [facility] Comment on above: Order Comment: Speci men Type: BLOOD SPECIMENOrdering Facility: [facility] Address: [address] [place] [address] Performed By: #### 2 4323-8 ####[facility] LABCLIA [id number] [place] [id number] [place] Chloride [Moles/Vol] 105 mmol/L Normal 98-107 [facility] Comment on above: Order Comment: Speci men Type: BLOOD SPECIMENOrdering Facility: [facility] Address: [address] [place] [address] Performed By: #### 2 4323-8 ####[facility] LABCLIA [id number] [place] [id number] [place] CO2 [Moles/Vol] 26 mmol/L Normal 22-30 [facility] Comment on above: Order Comment: Speci men Type: BLOOD SPECIMENOrdering Facility: [facility] Address: [address] [place] [address] Performed By: #### 2 4323-8 ####[facility] LABCLIA [id number] [address] STATES OF [facility] Creatinine [Mass/Vol] 0.97 mg/dL Normal 0.73-1.22 [facility] Comment on above: Order Comment: Speci men Type: BLOOD SPECIMENOrdering Facility: [facility] Address: [address] [place] [address] Performed By: #### 2 4323-8 ####[facility] LABCLIA [id number] [address] OF [facility] Creatinine and Glomerular filtration rate.predicted panel (S/P/Bld) 86 mL/min/1.73m??? Normal >=60 [facility] Comment on above: Order Comment: Speci men Type: BLOOD SPECIMENOrdering Facility: [facility] Address: [address] [place] [address] Result Comment: Jayshree mated Glomerular Filtration Rate [...] actual GFR. Performed By: #### 2 4323-8 ####[facility] LABCLIA [id number] [place] [address] [place] Glucose [Mass/Vol] 201 mg/dL High 74-99 [facility] Comment on above: Order Comment: Speci men Type: BLOOD SPECIMENOrdering Facility: [facility] Address: [address] [place] [address] Result Comment: The [place] Diabetes Association (ADA) provides guidance for cutoff values for fasting glucose and random glucose. The ADA defines fasting as no caloric intake for at least 8 hours. Fasting plasma glucose results between 100 to 125 mg/dL indicate increased risk for diabetes (prediabetes).Fasting plasma glucose results greater than or equal to 126 mg/dL meet the criteria for diagnosis of diabetes. In the absence of unequivocal hyperglycemia, results should be confirmed by repeat testing. In a patient with classic symptoms of hyperglycemia or hyperglycemic crisis, random plasma glucose results greater than or equal to 200 mg/dL meet the criteria for diagnosis of diabetes.Reference: Standards of Medical Care in Diabetes 2016, [place] [employer]. Diabetes Care. 2016.39(Suppl 1). Performed By: #### 2 4323-8 ####[facility] LABCLIA [id number] [place] [address] [place] Potassium [Moles/Vol] 3.5 mmol/L Low 3.7-5.1 [facility] Comment on above: Order Comment: Speci men Type: BLOOD SPECIMENOrdering Facility: [facility] Address: [address] [place] [address] Performed By: #### 2 4323-8 ####[facility] LABIA [id number] [place] [address] [place] Protein [Mass/Vol] 7.3 g/dL Normal 6.3-8.0 [facility] Comment on above: Order Comment: Speci men Type: BLOOD SPECIMENOrdering Facility: [facility] Address: [address] [place] [address] Performed By: #### 2 4323-8 ####[facility] LABCLIA [id number] [place] [address] [place] Sodium [Moles/Vol] 140 mmol/L Normal 136-144 [facility] Comment on above: Order Comment: Speci men Type: BLOOD SPECIMENOrdering Facility: [facility] Address: [address] [place] [address] Performed By: #### 2 4323-8 ####[facility] LABCLIA [id number] [place] [address] [place] Urea nitrogen [Mass/Vol] 14 mg/dL Normal 9-24 [facility] Comment on above: Order Comment: Speci men Type: BLOOD SPECIMENOrdering Facility: [facility] Address: [address] [place] [address] Performed By: #### 2 4323-8 ####[facility] LABCLIA [id number] [place] [address] [place] CBC W Auto Differential pane l (Bld)on 12-13-2023 Basophils (Bld) [#/Vol] 0.04 10*3/uL [facility] Basophils/100 WBC (Bld) 0.6 % [facility] Differential cell count method Nom (Bld) Auto [facility] Eosinophils (Bld) [#/Vol] 0.08 10*3/uL [facility] Eosinophils/100 WBC (Bld) 1.1 % [facility] Erythrocyte distribution width (RBC) [Ratio] 13.1 % 11.5 - 15.0 % [facility] Hematocrit (Bld) [Volume fraction] 47.9 % 39.0 - 51.0 % [facility] Hemoglobin (Bld) [Mass/Vol] 16.7 g/dL 13.0 - 17.0 g/dL [facility] Immature granulocytes (Bld) [#/Vol] NINF [facility] Immature granulocytes/100 WBC (Bld) 0.3 % [facility] Lymphocytes (Bld) [#/Vol] 1.21 10*3/uL [facility] Lymphocytes/100 WBC (Bld) 16.8 % [facility] MCH (RBC) [Entitic mass] 29.6 pg 26.0 - 34.0 pg [facility] MCHC (RBC) [Mass/Vol] 34.9 g/dL 30.5 - 36.0 g/dL [facility] MCV (RBC) [Entitic vol] 84.9 fL 80.0 - 100.0 fL [facility] Monocytes (Bld) [#/Vol] 0.71 10*3/uL NINF [facility] Monocytes/100 WBC (Bld) 9.8 % [facility] Neutrophils (Bld) [#/Vol] 5.15 10*3/uL [facility] Neutrophils/100 WBC (Bld) 71.4 % [facility] Nucleated RBC (Bld) [#/Vol] NINF [facility] Nucleated RBC/100 WBC (Bld) [Ratio] 0.0 % /100 WBC [facility] Platelet mean volume (Bld) [Entitic vol] 11.2 fL 9.0 - 12.7 fL [facility] Platelets (Bld) [#/Vol] 168 10*3/uL [facility] RBC (Bld) [#/Vol] 5.64 10*6/uL 4.20 - 6.00 m/uL [facility] WBC (Bld) [#/Vol] 7.21 10*3/uL [facility] Comprehensive metabolic 2000 panelOrdered By: Elizabeth Malone on 12-13-2023 Albumin [Mass/Vol] 4.7 g/dL 3.9 - 4.9 g/dL [facility] ALP [Catalytic activity/Vol] 90 U/L 38 - 113 U/L [facility] ALT [Catalytic activity/Vol] 31 U/L 10 - 54 U/L [facility] Anion gap [Moles/Vol] 12 mmol/L 8 - 15 mmol/L [facility] AST [Catalytic activity/Vol] 21 U/L 14 - 40 U/L [facility] Bilirubin [Mass/Vol] 0.8 mg/dL 0.2 - 1 .3 mg/dL [facility] Calcium [Mass/Vol] 9.3 mg/dL 8.5 - 10. 2 mg/dL [facility] Chloride [Moles/Vol] 105 mmol/L 98 - 10 7 mmol/L [facility] CO2 [Moles/Vol] 23 mmol/L 22 - 30 mmol/L [facility] Creatinine [Mass/Vol] 0.88 mg/dL 0.73 - 1.22 mg/dL [facility] GFR/1.73 sq M.predicted among non-blacks MDRD (S/P/Bld) [Vol rate/Area] 95 mL/min/{1.73_m2} - PINF [facility] Comment on above: Estimated Glomerular Filtration Rate [...] [Mass/Vol] 79 mg/dL 74 - 99 mg/dL [facility] Comment on above: The [place] Diabete s Association (ADA) provides guidance for [...] Standards of Medical Care in Diabetes 2016, [place] [employer]. Diabetes Care. 2016.39(Suppl 1). Interpretation and review of laboratory results Abnormal [facility] Potassium [Moles/Vol] 3.5 mmol/L Low 3.7 - 5.1 mmol/L [facility] Protein [Mass/Vol] 7.9 g/dL 6.3 - 8.0 g/dL [facility] Sodium [Moles/Vol] 140 mmol/L 136 - 144 mmol/L [facility] Urea nitrogen [Mass/Vol] 18 mg/dL 9 - 24 mg/dL [facility] Basophil percentageOrdered B y: Flores Glover on 10-18-2023 Bilirubin [Mass/Vol] 1.00 mg/dL 0.20-1.00 [facility] Comment on above: For patients on eltr ombopag therapy, use of Dimension [place] TBIL is not recommended. Chloride [Moles/Vol] 110 mmol/L 98-107 [facility] Cholesterol [Mass/Vol] 75 mg/dL <200 [facility] Comment on above: <200 mg/dL Desirable 200-240 mg/dL Borderline >240 mg/dL High Risk Glucose [Mass/Vol] 119 mg/dL 74-106 [facility] Comment on above: Fasting Glucose resu lt from 100 to 125 mg/dL suggests IMPAIRED HOMEOSTASIS per A.D.A. criteria. Hemoglobin (Bld) [Mass/Vol] 15.3 g/dL 13.0-16.5 [facility] Potassium [Moles/Vol] 3.6 mmol/L 3.5-5.1 [facility] Protein [Mass/Vol] 7.2 g/dL 6.4-8.2 [facility] Sodium [Moles/Vol] 141 mmol/L 136-145 [facility] Triglyceride [Mass/Vol] 147 mg/dL <199 [facility] Comment on above: The drugs N-Acetylcy steine and Metamizole may falsely depress this assay.Serum Triglycerides Reference Interval Normal <150 mg/dL Borderline high 150 - 199 mg/dL High 200 - 499 mg/dL Very High > or = 500 mg/dL WBC (Bld) [#/Vol] 4.6 10*3/uL 4.4-11.0 [facility] Determination of erythrocyte mean corpuscular volume (MCV)Ordered By: Flores Glover on 10-18-2023 MCV (RBC) [Entitic vol] 86.7 fL 80-94 [facility] Erythrocyte distribution wid th ratioOrdered By: Flores Glover on 10-18-2023 Erythrocyte distribution width (RBC) [Ratio] 14.0 % 11.6-14.6 [facility] Erythrocyte distribution wid th standard deviationOrdered By: Flores Glover on 10-18-2023 Erythrocyte distribution width (RBC) [Entitic vol] 44.5 fL 35.1-43.9 [facility] Hematocrit Auto (Bld) [Volum e fraction]Ordered By: Flores Glover on 10-18-2023 Hematocrit (Bld) [Volume fraction] 44.4 % 40-54 [facility] - Chemistry and C hemistry - challengeOrdered By: Flores Glover on 10-18-2023 Albumin/Globulin [Mass ratio] 1.2 {ratio} 0.9-2.4 [facility] ALP [Catalytic activity/Vol] 78 U/L 45-117 [facility] ALT [Catalytic activity/Vol] 33 U/L 16-61 [facility] Cholesterol in HDL [Mass/Vol] 28 mg/dL >40 [facility] Comment on above: The drugs N-Acetylcy steine and Metamizole may falsely depress this assay. Reference Range HDL <40 mg/dL Low HDL Cholesterol HDL >or= 60 mg/dL High HDL Cholesterol Cholesterol in LDL [Mass/Vol] 18 mg/dL 0-130 [facility] CO2 [Moles/Vol] 26.0 mmol/L 21.0-32.0 [facility] Globulin (S) [Mass/Vol] 3.2 g/dL 2.2-4.2 [facility] Magnesium [Mass/Vol] 1.9 mg/dL 1.6-2.6 [facility] Urea nitrogen/Creatinine [Mass ratio] 15.8 mg/mg 10-20 [facility] - Hematology and Cell countsOrdered By: Flores Glover on 10-18-2023 MCH (RBC) [Entitic mass] 29.9 pg 27.0-32.0 [facility] MCHC (RBC) [Mass/Vol] 34.5 g/dL 32-36 [facility] Platelet mean volume (Bld) [Entitic vol] 11.6 fL 6.2-12.0 [facility] Platelets (Bld) [#/Vol] 130 10*3/uL 150-450 [facility] No Panel InformationOrdered By: Flores Glover on 10-18-2023 Estimated GFR (MDRD) Amer 102 mL/min >60 [facility] Comment on above: GFR Calc Estimated GFR (MDRD) Non-Af Amer 84 mL/min >60 [facility] Comment on above: Non- GFR Calc VLDL Cholesterol 29 mg/dL 5-40 [facility] RBC Auto (Bld) [#/Vol]Ordere d By: Flores Glover on 10-18-2023 RBC (Bld) [#/Vol] 5.12 10*6/uL 4.6-6.2 [facility] Serum or plasma calcium peterson urement (mass/volume)Ordered By: Flores Glover on 10-18-2023 Calcium [Mass/Vol] 8.7 mg/dL 8.5-10.1 [facility] Serum or plasma creatinine m easurement (mass/volume)Ordered By: Flores Glover on 10-18-2023 Creatinine [Mass/Vol] 0.95 mg/dL 0.70-1.30 [facility] Comment on above: The validity of the calculated GFR & GFRAA in patients over 70 years has not been determined. Clinical correlation is essential. Serum or plasma urea nitroge n measurement (mass/volume)Ordered By: Floresaung Glover on 10-18-2023 Urea nitrogen [Mass/Vol] 15 mg/dL 7-18 [facility] Thin prep Papanicolaou smear with manual screeningOrdered By: Flores Adalberto on 10-18-2023 Thin prep Papanicolaou smear with manual screening 4.0 g/dL 3.2-5.0 [facility] Thin prep Papanicolaou smear with manual screening 19 U/L 15-37 [facility] Thin prep Papanicolaou smear with manual screening 5 5-15 [facility] ANES POSTPROC EVALon 024 ANES POSTPROC EVAL HNO ID: [id number] Author: VEE LOVING MD Service: Anesthesiology Author Type: Anesthesiologist Type: Anesthesia Postprocedure Evaluation Filed: 07/19/2023 10:38 Note Text: POST ANESTHESIA EVALUATION NOTE : 1955 Procedure Summary Date: 07/19/23 [place] An[place]hesia Start: 900 Anesthesia Stop: 100 Procedure: HERNIORRHAPHY UMBILICAL REDUCIBLE 3cm-10cm (Abdomen) Diagnosis: Umbilical hernia without obstruction or gangrene (Umbilical hernia without obstruction or gangrene [K42.9]) Surgeons: Wendy Bales MD Responsible Provider: Vee Loving MD [...] Documentation SIGNATURE: Vee Loving MD PATIENT NAME: Jero Garzon DATE: July 19, 2023 TIME: 10:38 AM CSN: [id number] [facility] ANES PRE-OPon 07-19-2023 ANES PRE-OP HNO ID: [id number] Author: VEE LOVING MD Service: Anesthesiology Author Type: Anesthesiologist Type: Anesthesia Preprocedure Evaluation Filed: 07/19/2023 08:12 Note Text: ANESTHESIOLOGY DAY OF SURGERY NOTE : 1955 Procedure Information Date/Time: 07/19/2356 Procedure: HERNIORRHAPHY UMBILICAL REDUCIBLE 3cm-10cm (Abdomen) [place] Surgeons: Wendy Bales MD Estimated body mass index is [...] and consent discussed: yes. Patient / Responsible Libertarian agrees to proceed: yes Patient / Surrogate [...] Surgery/Procedure. SIGNATURE: Vee Loving MD PATIENT NAME: Jero Garzon DATE: July 19, 2023 TIME: 8:11 AM CSN: [id number] [facility] HISTORY PHYSICALon HISTORY PHYSICAL HNO ID: [id number] Author: WENDY BALES MD Service: General Surgery Author Type: Physician Type: H&P Filed: 07/19/2023 08:31 Note Text: HISTORY AND PHYSICAL Jero Garzon 1955 REFERRING PHYSICIAN: Chloe Cheema MD CHIEF COMPLAINT: Consult (Umbilical hernia.) HPI: Jero is a 67 year old male with [...] who felt the patient has a hernia. Jero was referred for evaluation and treatment. The patient is being seen by me today at the request of Dr. Chloe Cheema MD for my opinion and advice [...] Right 1988 LAPS SURG CHOLECYSTECTOMY W/CHOLANGIOGRAPHY 2004 [facility] - Dr. Bales OPEN REPAIR OF [...] Mother Breast Cancer Mother Heart Father of [place] Allergies Father Asthma Daughter Allergies Sister Allergies Brother Allergies Daughter REVIEW OF SYMPTOMS: The review of systems data was entered by the nurse and reviewed by me Nursing Notes: (more content not included)... [facility] OPERATIVE NOon 07-19-2023 OPERATIVE NO HNO ID: [id number] Author: WENDY BALES MD Service: General Surgery Author Type: Physician Type: Operative Report Filed: 07/19/2023 10:07 Note Text: OPERATIVE/PROCEDURE REPORT LOG ID: [id number] SURGERY/PROCEDURE DATE: 07/19/2023 INCISION/PROCEDURE START TIME: 9:18 AM INCISION CLOSE/PROCEDURE END TIME: 9:55 AM SURGEON(S)/PROCEDURALIST(S) AND SENIOR LINUX ADMINISTRATOR(S): Surgeon(s) and Role: * Wendy Bales MD - Primary Physician Scagliola Mechanic: Anna Mccoy PA-C SURGERY/PROCEDURE(S): Umbilical hernia repair [...] procedure well. Anna Mccoy PA-C was my assistant director of security. She assisted with retraction, visualization and performed skin closure. No additional surgeons or qualified residents were available. PRE-OP/PRE-PROCEDURE DIAGNOSIS: Umbilical hernia POST-OP/POST-PROCEDURE DIAGNOSIS: Same as Preop ESTIMATED BLOOD LOSS: < 25 mls SPECIMENS: None IMPLANTABLE DEVICES: Implant Name Type Inv. Item Serial No. Putty Mixer Lot No. LRB No. Used Action MESH PARIETEX 6.6CM [employer] SELF CENTER COMPOSITE - [id number] Mesh MESH PARIETEX 6.6CM SMALL COLLAG[employer]GICAL P[employer] SELF CENTER COMPOSITE [employer] [id number] N/A 1 Implanted DRAINS: None COMPLICATIONS: None CLOSURE TECHNIQUE: Primary PARTICIPATION IN SURGERY/PROCEDURE: I/primary surgeon/proceduralist performed the procedure with assistance. SIGNATURE: Wendy Bales III, MD PATIENT NAME: Jero Garzon DATE: July 19, 2023 TIME: 9:48 AM [facility] Absolute lymphocyte countOrd ered By: [facility] on 07-13-2023 Lymphocytes Auto (Unsp spec) [#/Vol] 0.84 10*3/uL 0.83-4.51 [facility] Automated lymphocyte count a s percentage of total leukocytesOrdered By: [facility]23 Lymphocytes/100 WBC Auto (Unsp spec) 23.8 % 19-41 [facility] Basophil percentageOrdered B y: [facility] on 07-13-2023 Basophils/100 WBC (Bld) 0.6 % 0-1 [facility] Eosinophils/100 WBC (Bld) 1.7 % 0-5 [facility] Hemoglobin (Bld) [Mass/Vol] 15.5 g/dL 13.0-16.5 [facility] Monocytes/100 WBC (Bld) 11.0 % 0-10 [facility] Neutrophils (Bld) [#/Vol] 2.2 10*3/uL 2.0-7.7 [facility] Neutrophils/100 WBC (Bld) 62.9 % 47-70 [facility] WBC (Bld) [#/Vol] 3.5 10*3/uL 4.4-11.0 [facility] Bilirubin [Mass/Vol] 1.10 mg/dL 0.20-1.00 [facility] Comment on above: For patients on eltr ombopag therapy, use of Dimension [place]mer TBIL is not recommended. Chloride [Moles/Vol] 108 mmol/L 98-107 [facility] Cholesterol [Mass/Vol] 77 mg/dL <200 [facility] Comment on above: <200 mg/dL Desirable 200-240 mg/dL Borderline >240 mg/dL High Risk Glucose [Mass/Vol] 116 mg/dL 74-106 [facility] Comment on above: Fasting Glucose resu lt from 100 to 125 mg/dL suggests IMPAIRED HOMEOSTASIS per A.D.A. criteria. Potassium [Moles/Vol] 4.0 mmol/L 3.5-5.1 [facility] Protein [Mass/Vol] 7.9 g/dL 6.4-8.2 [facility] Sodium [Moles/Vol] 137 mmol/L 136-145 [facility] Triglyceride [Mass/Vol] 90 mg/dL <199 [facility] Comment on above: The drugs N-Acetylcy steine and Metamizole may falsely depress this assay.Serum Triglycerides Reference Interval Normal <150 mg/dL Borderline high 150 - 199 mg/dL High 200 - 499 mg/dL Very High > or = 500 mg/dL Determination of erythrocyte mean corpuscular volume (MCV)Ordered By: Flores Glover on 07-13-2023 MCV (RBC) [Entitic vol] 86.6 fL 80-94 [facility] Direct bilirubinOrdered By: Flores Glover on 07-13-2023 Bilirubin.direct [Mass/Vol] 0.33 mg/dL 0.00-0.30 [facility] Erythrocyte distribution wid th ratioOrdered By: Flores Glover on 07-13-2023 Erythrocyte distribution width (RBC) [Ratio] 13.0 % 11.6-14.6 [facility] Erythrocyte distribution wid th standard deviationOrdered By: Floresaung Glover on 07-13-2023 Erythrocyte distribution width (RBC) [Entitic vol] 40.1 fL 35.1-43.9 [facility] Hematocrit Auto (Bld) [Volum e fraction]Ordered By: Flores Glover on 07-13-2023 Hematocrit (Bld) [Volume fraction] 46.0 % 40-54 [facility] High density lipoprotein (HD L) measurementOrdered By: Flores Glover on 07-13-2023 Cholesterol in HDL (Body fld) [Mass/Vol] 30 mg/dL >40 [facility] Comment on above: The drugs N-Acetylcy steine and Metamizole may falsely depress this assay. Reference Range HDL <40 mg/dL Low HDL Cholesterol HDL >or= 60 mg/dL High HDL Cholesterol Immature granulocytes/100 WB C Auto (Bld)Ordered By: Flores Glover on 07-13-2023 Immature granulocytes/100 WBC (Bld) 0.000 % 0.0-0.9 [facility] Comment on above: IG% - Immature Granu locytes (promyelocytes, myelocytes and metamyelocytes) > 1% indicates that a LEFT SHIFT is Present. Laboratory - Chemistry and C hemistry - challengeOrdered By: Flores Glover on 07-13-2023 Albumin/Globulin [Mass ratio] 1.2 {ratio} 0.9-2.4 [facility] ALP [Catalytic activity/Vol] 76 U/L 45-117 [facility] ALT [Catalytic activity/Vol] 59 U/L 16-61 [facility] CO2 [Moles/Vol] 28.0 mmol/L 21.0-32.0 [facility] Globulin (S) [Mass/Vol] 3.6 g/dL 2.2-4.2 [facility] Urea nitrogen/Creatinine [Mass ratio] 15.3 mg/mg 10-20 [facility] Laboratory - Hematology and Cell countsOrdered By: Flores Glover on 07-13-2023 MCH (RBC) [Entitic mass] 29.2 pg 27.0-32.0 [facility] MCHC (RBC) [Mass/Vol] 33.7 g/dL 32-36 [facility] Nucleated RBC/100 WBC (Bld) [Ratio] 0 % 0-5 [facility] Platelets (Bld) [#/Vol] 164 10*3/uL 150-450 [facility] Low density lipoprotein (LDL ) cholesterol measurementOrdered By: Flores Glover on 07-13-2023 Cholesterol in LDL (Body fld) [Moles/Vol] 29 mg/dL 0-130 [facility] No Panel InformationOrdered By: Flores Glover on 07-13-2023 Estimated GFR (MDRD) Amer 80 mL/min >60 [facility] Comment on above: GFR Calc Estimated GFR (MDRD) Non-Af Amer 66 mL/min >60 [facility] Comment on above: Non- GFR Calc Platelet mean volume Stephen-Ec ker (Bld) [Entitic vol]Ordered By: Flores Glover on 07-13-2023 Platelet mean volume (Bld) [Entitic vol] 10.8 fL 6.2-12.0 [facility] RBC Auto (Bld) [#/Vol]Ordere d By: Flores Glover on 07-13-2023 RBC (Bld) [#/Vol] 5.31 10*6/uL 4.6-6.2 [facility] Serum or plasma calcium peterson urement (mass/volume)Ordered By: Florse Glover on 07-13-2023 Calcium [Mass/Vol] 9.5 mg/dL 8.5-10.1 [facility] Serum or plasma creatinine m easurement (mass/volume)Ordered By: Flores Glover on 07-13-2023 Creatinine [Mass/Vol] 1.18 mg/dL 0.70-1.30 [facility] Comment on above: The validity of the calculated GFR & GFRAA in patients over 70 years has not been determined. Clinical correlation is essential. Serum or plasma urea nitroge n measurement (mass/volume)Ordered By: Flores Glover on 07-13-2023 Urea nitrogen [Mass/Vol] 18 mg/dL 7-18 [facility] Thin prep Papanicolaou smear with manual screeningOrdered By: Flores Glover on 07-13-2023 Thin prep Papanicolaou smear with manual screening 4.3 g/dL 3.2-5.0 [facility] Thin prep Papanicolaou smear with manual screening 32 U/L 15-37 [facility] Thin prep Papanicolaou smear with manual screening 1 5-15 [facility] Very low density lipoprotein (VLDL) cholesterol measurementOrdered By: Flores Glover on 07-13-2023 Cholesterol in VLDL Calc [Moles/Vol] 18 mg/dL 5-40 [facility] Basophil percentageOrdered B y: Gamal Ramso on 04-25-2023 Testosterone [Mass/Vol] 366.38 ng/dL [facility] Comment on above: CENTRAL 90% REFERENC E RANGES MALE AGE <50 197.44 - 669.58 ng/dL MALE AGE > or = 50 187.72 - 684.19 ng/dL FEMALE AGE <50 8.38 - 35.01 ng/dL FEMALE AGE > or = 50 <7.00 - 35.92 ng/dL Effective as of 01/12/21 No Panel InformationOrdered By: Gamal Ramos on 04-25-2023 Prostate Specific Antigen Screen 3.94 ng/mL 0.00-4.00 [facility] Comment on above: This test was perfor med using the TPSA assay method for the[employer] chemistry system. Values obtained with differentassay methods cannot be used interchangably.When changing PSA assays in the course of monitoring apatient, additional sequential testing should be carriedout to confirm baseline values. XR Foot - left AP and Latera l and obliqueon 04-03-2023 IMPRESSION: No radiographic evidence of acute osseous injury Coding Spec: OSMANI Transcribe Date/Time: Apr 03 2023 11:18A Dictated by : JERE DUNHAM MD This examination was interpreted and the report reviewed and electronically signed by: JERE DUNHAM MD on Apr 03 2023 11:19AM [facility] DIVISION OF RADIOLOGY * * *Final [...] the interphalangeal joints. DIVISION OF RADIOLOGY [facility]23 * * *Final Report* * [...] No radiographic evidence of acute osseous injury Coding Spec: OSMANI Transcribe Date/Time: Apr 03 2023 11:18A Dictated by : JERE DUNHAM MD This examination was interpreted and the report reviewed and electronically signed by: JERE DUNHAM MD on Apr 03 2023 11:19AM EST [facility] Radiology Study observation (narrative) [facility] XR Foot - left AP and Latera l and obliqueOrdered By: [facility] Provider on 04-03-2023 [facility] CBC W Auto Differential pane l (Bld)on 12-20-2022 Basophils (Bld) [#/Vol] 0.03 10*3/uL <0.11 k/uL [facility] Basophils/100 WBC (Bld) 0.6 % [facility] Differential cell count method Nom (Bld) Auto [facility] Eosinophils (Bld) [#/Vol] 0.10 10*3/uL <0.46 k/uL [facility] Eosinophils/100 WBC (Bld) 1.9 % [facility] Erythrocyte distribution width (RBC) [Ratio] 13.0 % 11.5 - 15.0 % [facility] Hematocrit (Bld) [Volume fraction] 40.3 % 39.0 - 51.0 % [facility] Hemoglobin (Bld) [Mass/Vol] 13.4 g/dL 13.0 - 17.0 g/dL [facility] Immature granulocytes (Bld) [#/Vol] <0.10 k/uL [facility] Immature granulocytes/100 WBC (Bld) 0.4 % [facility] Lymphocytes (Bld) [#/Vol] 1.01 10*3/uL 1.00 - 4.00 k/uL [facility] Lymphocytes/100 WBC (Bld) 19.6 % [facility] MCH (RBC) [Entitic mass] 29.6 pg 26.0 - 34.0 pg [facility] MCHC (RBC) [Mass/Vol] 33.3 g/dL 30.5 - 36.0 g/dL [facility] MCV (RBC) [Entitic vol] 89.2 fL 80.0 - 100.0 fL [facility] Monocytes (Bld) [#/Vol] 0.45 10*3/uL <0.87 k/uL [facility] Monocytes/100 WBC (Bld) 8.8 % [facility] Neutrophils (Bld) [#/Vol] 3.53 10*3/uL 1.45 - 7.50 k/uL [facility] Neutrophils/100 WBC (Bld) 68.7 % [facility] Nucleated RBC (Bld) [#/Vol] <0.01 k/uL [facility] Nucleated RBC/100 WBC (Bld) [Ratio] 0.0 /100 WBC [facility] Platelet mean volume (Bld) [Entitic vol] 12.2 fL 9.0 - 12.7 fL [facility] Platelets (Bld) [#/Vol] 156 10*3/uL 150 - 400 k/uL [facility] RBC (Bld) [#/Vol] 4.52 10*6/uL 4.20 - 6.00 m/uL [facility] WBC (Bld) [#/Vol] 5.14 10*3/uL 3.70 - 11.00 k/uL [facility] Absolute lymphocyte countOrd ered By: Lucy Partida on 12-16-2022 Lymphocytes Auto (Unsp spec) [#/Vol] 0.25 10*3/uL 0.83-4.51 [facility] Acetaminophen level (mass/vo lume)Ordered By: Lucy White on 12-16-2022 Acetaminophen (Unsp spec) [Mass/Vol] 2.3 ug/mL 10.0-30.0 [facility] Basophil percentageOrdered B y: Lucy White on 12-16-2022 Basophils/100 WBC (Bld) 0.2 % 0-1 [facility] Bilirubin [Mass/Vol] 1.20 mg/dL 0.20-1.00 [facility] Comment on above: For patients on eltr ombopag therapy, use of Dimension [place] TBIL is not recommended. Chloride [Moles/Vol] 108 mmol/L 98-107 [facility] Eosinophils/100 WBC (Bld) 0.2 % 0-5 [facility] Glucose [Mass/Vol] 130 mg/dL 74-106 [facility] Comment on above: Fasting Glucose resu lt greater than or equal to 126 mg/dL suggests DIABETES MELLITUS per A.D.A. criteria. Neutrophils (Bld) [#/Vol] 3.5 10*3/uL 2.0-7.7 [facility] Neutrophils/100 WBC (Bld) 82.1 % 47-70 [facility] Potassium [Moles/Vol] 3.3 mmol/L 3.5-5.1 [facility] Protein [Mass/Vol] 6.1 g/dL 6.4-8.2 [facility] Sodium [Moles/Vol] 137 mmol/L 136-145 [facility] WBC (Bld) [#/Vol] 4.2 10*3/uL 4.4-11.0 [facility] Blood erythrocytes count (nu mber/volume)Ordered By: Lucy Partida on 12-16-2022 RBC (Bld) [#/Vol] 4.29 10*6/uL 4.6-6.2 [facility] Blood hemoglobin measurement (mass/volume)Ordered By: Lucy Partida on 12-16-2022 Hemoglobin (Bld) [Mass/Vol] 13.1 g/dL 13.0-16.5 [facility] Blood lymphocytes/100 leukoc ytesOrdered By: Lucy Partida on 12-16-2022 Lymphocytes/100 WBC (Bld) 5.9 % 19-41 [facility] Blood manual differential co mment interpretation (narrative result)Ordered By: Lucy Partida on 12-16-2022 Manual differential comment Ildefonso (Bld) [Interp] SCANNED [facility] Comment on above: LYMPHOPENIA Blood monocytes/100 leukocyt esOrdered By: Lucy Partida on 12-16-2022 Monocytes/100 WBC (Bld) 11.1 % 0-10 [facility] Blood platelet adequacy dete ction by light microscopyOrdered By: Lucy Partida on 12-16-2022 Platelets LM Ql (Bld) SLT DEC ADEQ [facility] Blood platelet mean volumeOr dered By: Lucy Partida on 12-16-2022 Platelet mean volume (Bld) [Entitic vol] 11.5 fL 6.2-12.0 [facility] Determination of erythrocyte mean corpuscular volume (MCV)Ordered By: Lucy Partida on 12-16-2022 MCV (RBC) [Entitic vol] 88.3 fL 80-94 [facility] Hematocrit Auto (Bld) [Volum e fraction]Ordered By: Lucy Partida on 12-16-2022 Hematocrit (Bld) [Volume fraction] 37.9 % 40-54 [facility] Laboratory - Chemistry and C hemistry - challengeOrdered By: Lucy Partida on 12-16-2022 ALP [Catalytic activity/Vol] 59 U/L 45-117 [facility] ALT [Catalytic activity/Vol] 41 U/L 16-61 [facility] CO2 [Moles/Vol] 22.0 mmol/L 21.0-32.0 [facility] Globulin (S) [Mass/Vol] 3.3 g/dL 2.2-4.2 [facility] Urea nitrogen/Creatinine [Mass ratio] 12.7 mg/mg 10-20 [facility] Laboratory - Hematology and Cell countsOrdered By: Lucy Partida on 12-16-2022 Erythrocyte distribution width (RBC) [Entitic vol] 42.5 fL 35.1-43.9 [facility] Erythrocyte distribution width (RBC) [Ratio] 13.2 % 11.6-14.6 [facility] Immature granulocytes/100 WBC (Bld) 0.500 % 0.0-0.9 [facility] Comment on above: IG% - Immature Granu locytes (promyelocytes, myelocytes and metamyelocytes) > 1% indicates that a LEFT SHIFT is Present. MCH (RBC) [Entitic mass] 30.5 pg 27.0-32.0 [facility] Nucleated RBC/100 WBC (Bld) [Ratio] 0 % 0-5 [facility] MCHC Auto (RBC) [Mass/Vol]Or dered By: Lucy Partida on 12-16-2022 MCHC (RBC) [Mass/Vol] 34.6 g/dL 32-36 [facility] No Panel InformationOrdered By: Lucy Partida on 12-16-2022 Estimated Creatinine Clearance Calc 84.38 ml/min [facility] Estimated GFR (MDRD) Amer 86 mL/min >60 [facility] Comment on above: GFR Calc Estimated GFR (MDRD) Non-Af Amer 71 mL/min >60 [facility] Comment on above: Non- GFR Calc Platelets bldOrdered By: Michael Partida on 12-16-2022 Platelets (Bld) [#/Vol] 92 10*3/uL 150-450 [facility] Review by pathologistOrdered By: Lucy Partida on 12-16-2022 Pathologist review Ildefonso (Unsp spec) [Interp] Reviewed [facility] Comment on above: Previous reported re sult: Belia rhoades Edited by: RGOCHRISTIANO on 12/16/22:1022Mild Thrombocytopenia.Clinical correlation necessary.Jameson Oden M.D. 12/16/22 AMENDED REPORT 12/16/22 1022 PATH REV previously reported as: Belia rhoades Serum or plasma albumin peterson urement (mass/volume)Ordered By: Lucy Partida on 12-16-2022 Albumin [Mass/Vol] 2.8 g/dL 3.2-5.0 [facility] Serum or plasma albumin/glob ulin mass ratioOrdered By: Lucy Partida on 12-16-2022 Albumin/Globulin [Mass ratio] 0.8 {ratio} 0.9-2.4 [facility] Serum or plasma calcium peterson urement (mass/volume)Ordered By: Lucy Partida on 12-16-2022 Calcium [Mass/Vol] 7.8 mg/dL 8.5-10.1 [facility] Serum or plasma creatinine m easurement (mass/volume)Ordered By: Lucy Partida on 12-16-2022 Creatinine [Mass/Vol] 1.10 mg/dL 0.70-1.30 [facility] Comment on above: The validity of the calculated GFR & GFRAA in patients over 70 years has not been determined. Clinical correlation is essential. Serum or plasma urea nitroge n measurement (mass/volume)Ordered By: Lucy Partida on 12-16-2022 Urea nitrogen [Mass/Vol] 14 mg/dL 7-18 [facility] Thin prep Papanicolaou smear with manual screeningOrdered By: Lucy Partida on 12-16-2022 Thin prep Papanicolaou smear with manual screening 34 U/L 15-37 [facility] Thin prep Papanicolaou smear with manual screening 7 5-15 [facility] Absolute lymphocyte countOrd ered By: Nahum Dias on 12-15-2022 Lymphocytes Auto (Unsp spec) [#/Vol] 0.19 10*3/uL 0.83-4.51 [facility] Basophil percentageOrdered B y: Nahum Dias on 12-15-2022 Basophils/100 WBC (Bld) 0.2 % 0-1 [facility] Bilirubin [Mass/Vol] 1.40 mg/dL 0.20-1.00 [facility] Comment on above: For patients on eltr ombopag therapy, use of Dimension [place] TBIL is not recommended. Chloride [Moles/Vol] 105 mmol/L 98-107 [facility] Eosinophils/100 WBC (Bld) 0.7 % 0-5 [facility] Glucose [Mass/Vol] 131 mg/dL 74-106 [facility] Comment on above: Fasting Glucose resu lt greater than or equal to 126 mg/dL suggests DIABETES MELLITUS per A.D.A. criteria. Lactate [Moles/Vol] 1.7 mmol/L 0.4-2.0 [facility] Neutrophils (Bld) [#/Vol] 3.9 10*3/uL 2.0-7.7 [facility] Neutrophils/100 WBC (Bld) 90.2 % 47-70 [facility] Potassium [Moles/Vol] 3.3 mmol/L 3.5-5.1 [facility] Protein [Mass/Vol] 7.4 g/dL 6.4-8.2 [facility] Sodium [Moles/Vol] 135 mmol/L 136-145 [facility] WBC (Bld) [#/Vol] 4.3 10*3/uL 4.4-11.0 [facility] Blood erythrocytes count (nu mber/volume)Ordered By: Nahum Dias on 12-15-2022 RBC (Bld) [#/Vol] 4.61 10*6/uL 4.6-6.2 [facility] Blood hemoglobin measurement (mass/volume)Ordered By: Nahum Dias on 12-15-2022 Hemoglobin (Bld) [Mass/Vol] 14.4 g/dL 13.0-16.5 [facility] Blood lymphocytes/100 leukoc ytesOrdered By: Nahum Dias on 12-15-2022 Lymphocytes/100 WBC (Bld) 4.4 % 19-41 [facility] Blood manual differential co mment interpretation (narrative result)Ordered By: Nahum Dias on 12-15-2022 Manual differential comment Ildefonso (Bld) [Interp] SCANNED [facility] Comment on above: LYMPHOPENIA NOTEDTHR OMBOCYTOPENIA NOTED Blood monocytes/100 leukocyt esOrdered By: Nahum Dias on 12-15-2022 Monocytes/100 WBC (Bld) 4.0 % 0-10 [facility] Blood platelet mean volumeOr dered By: Nahum Dias on 12-15-2022 Platelet mean volume (Bld) [Entitic vol] 11.6 fL 6.2-12.0 [facility] Determination of erythrocyte mean corpuscular volume (MCV)Ordered By: Nahum Dias on 12-15-2022 MCV (RBC) [Entitic vol] 89.2 fL 80-94 [facility] Hematocrit Auto (Bld) [Volum e fraction]Ordered By: Nahum Dias on 12-15-2022 Hematocrit (Bld) [Volume fraction] 41.1 % 40-54 [facility] INR in Blood by Coagulation assayOrdered By: Nahum Dias on 12-15-2022 INR Coag (Bld) [Relative time] 1.2 {INR} [facility] Laboratory - Chemistry and C hemistry - challengeOrdered By: Nahum Dias on 12-15-2022 ALP [Catalytic activity/Vol] 77 U/L 45-117 [facility] ALT [Catalytic activity/Vol] 47 U/L 16-61 [facility] CO2 [Moles/Vol] 21.0 mmol/L 21.0-32.0 [facility] Globulin (S) [Mass/Vol] 3.9 g/dL 2.2-4.2 [facility] Urea nitrogen/Creatinine [Mass ratio] 12.5 mg/mg 10-20 [facility] Laboratory - Chemistry and C hemistry - challengeOrdered By: Lucy Partida on 12-15-2022 Magnesium [Mass/Vol] 1.8 mg/dL 1.6-2.6 [facility] Laboratory - CoagulationOrde red By: Nahum Dias on 12-15-2022 aPTT Coag (Bld) [Time] 32.2 s 24.1-36.2 [facility] PT Coag (PPP) [Time] 14.9 s 11.7-14.9 [facility] - Hematology and Cell countsOrdered By: Nahum Dias on 12-15-2022 Erythrocyte distribution width (RBC) [Entitic vol] 43.3 fL 35.1-43.9 [facility] Erythrocyte distribution width (RBC) [Ratio] 13.2 % 11.6-14.6 [facility] Immature granulocytes/100 WBC (Bld) 0.500 % 0.0-0.9 [facility] Comment on above: IG% - Immature Granu locytes (promyelocytes, myelocytes and metamyelocytes) > 1% indicates that a LEFT SHIFT is Present. MCH (RBC) [Entitic mass] 31.2 pg 27.0-32.0 [facility] Nucleated RBC/100 WBC (Bld) [Ratio] 0 % 0-5 [facility] MCHC Auto (RBC) [Mass/Vol]Or dered By: Nahum Dias on 12-15-2022 MCHC (RBC) [Mass/Vol] 35.0 g/dL 32-36 [facility] No Panel InformationOrdered By: Nahum Dias on 12-15-2022 Estimated Creatinine Clearance Calc 68.24 ml/min [facility] Estimated GFR (MDRD) Amer 68 mL/min >60 [facility] Comment on above: GFR Calc Estimated GFR (MDRD) Non-Af Amer 56 mL/min >60 [facility] Comment on above: Non- GFR Calc Platelets bldOrdered By: Olivia Dias on 12-15-2022 Platelets (Bld) [#/Vol] 87 10*3/uL 150-450 [facility] Respiratory pathogens detect ion panel by molecular detection methodOrdered By: Lucy Partida on 12-15-2022 Respiratory pathogens DNA and RNA panel ASHLEY+probe (Resp) [facility] Serum or plasma albumin peterson urement (mass/volume)Ordered By: Nahum Dias on 12-15-2022 Albumin [Mass/Vol] 3.5 g/dL 3.2-5.0 [facility] Serum or plasma albumin/glob ulin mass ratioOrdered By: Nahum Dias on 12-15-2022 Albumin/Globulin [Mass ratio] 0.9 {ratio} 0.9-2.4 [facility] Serum or plasma calcium peterson urement (mass/volume)Ordered By: Nahum Dias on 12-15-2022 Calcium [Mass/Vol] 8.6 mg/dL 8.5-10.1 [facility] Serum or plasma creatinine m easurement (mass/volume)Ordered By: Nahum Dias on 12-15-2022 Creatinine [Mass/Vol] 1.36 mg/dL 0.70-1.30 [facility] Comment on above: The validity of the calculated GFR & GFRAA in patients over 70 years has not been determined. Clinical correlation is essential. Serum or plasma urea nitroge n measurement (mass/volume)Ordered By: Nahum Dias on 12-15-2022 Urea nitrogen [Mass/Vol] 17 mg/dL 7-18 [facility] Thin prep Papanicolaou smear with manual screeningOrdered By: Nahum Dias on 12-15-2022 Thin prep Papanicolaou smear with manual screening 36 U/L 15-37 [facility] Thin prep Papanicolaou smear with manual screening 9 5-15 [facility] Absolute lymphocyte countOrd ered By: Vee Horton on 12-14-2022 Lymphocytes Auto (Unsp spec) [#/Vol] 1.07 10*3/uL 0.83-4.51 [facility] Basophil percentageOrdered B y: Vee Horton on 12-14-2022 Basophil percentage >100 SEEN /hpf 0-5 [facility] Lactate [Moles/Vol] 1.4 mmol/L 0.4-2.0 [facility] Basophils/100 WBC (Bld) 0.2 % 0-1 [facility] Bilirubin [Mass/Vol] 2.30 mg/dL 0.20-1.00 [facility] Comment on above: For patients on eltr ombopag therapy, use of Dimension [place] TBIL is not recommended. Chloride [Moles/Vol] 105 mmol/L 98-107 [facility] Eosinophils/100 WBC (Bld) 0.1 % 0-5 [facility] Glucose [Mass/Vol] 100 mg/dL 74-106 [facility] Comment on above: Fasting Glucose resu lt from 100 to 125 mg/dL suggests IMPAIRED HOMEOSTASIS per A.D.A. criteria. Neutrophils (Bld) [#/Vol] 13.5 10*3/uL 2.0-7.7 [facility] Neutrophils/100 WBC (Bld) 85.4 % 47-70 [facility] Potassium [Moles/Vol] 3.0 mmol/L 3.5-5.1 [facility] Protein [Mass/Vol] 7.1 g/dL 6.4-8.2 [facility] Sodium [Moles/Vol] 138 mmol/L 136-145 [facility] WBC (Bld) [#/Vol] 15.8 10*3/uL 4.4-11.0 [facility] [place] Bilirubin Test strip Ql (U)O rdered By: Vee Horton on 12-14-2022 Bilirubin Ql (U) 3 mg/dL Negative [facility] Comment on above: COLOR OF URINE MAY A FFECT DIPSTICK RESULTS. Blood erythrocytes count (nu mber/volume)Ordered By: Vee Horton on 12-14-2022 RBC (Bld) [#/Vol] 5.18 10*6/uL 4.6-6.2 [facility] [place] Blood hemoglobin measurement (mass/volume)Ordered By: Vee Horton on 12-14-2022 Hemoglobin (Bld) [Mass/Vol] 15.7 g/dL 13.0-16.5 [facility] Blood lymphocytes/100 leukoc ytesOrdered By: Vee Horton on 12-14-2022 Lymphocytes/100 WBC (Bld) 6.8 % 19-41 [facility] Blood monocytes/100 leukocyt esOrdered By: Vee Horton on 12-14-2022 Monocytes/100 WBC (Bld) 6.9 % 0-10 [facility] Blood platelet mean volumeOr dered By: Vee Horton on 12-14-2022 Platelet mean volume (Bld) [Entitic vol] 11.9 fL 6.2-12.0 [facility] Culture, urineOrdered By: Matt Horton on 12-14-2022 Bacteria identified Cx Nom (U) Escherichia coli [facility] Determination of erythrocyte mean corpuscular volume (MCV)Ordered By: Vee Horton on 12-14-2022 MCV (RBC) [Entitic vol] 90.2 fL 80-94 [facility] Hematocrit Auto (Bld) [Volum e fraction]Ordered By: Vee Horton on 12-14-2022 Hematocrit (Bld) [Volume fraction] 46.7 % 40-54 [facility] INR in Blood by Coagulation assayOrdered By: Vee Horton on 12-14-2022 INR Coag (Bld) [Relative time] 1.1 {INR} [facility] Ketones Test strip Ql (U)Ord ered By: Vee Horton on 12-14-2022 Ketones Ql (U) 15 mg/dl Negative [facility] Laboratory - Chemistry and C hemistry - challengeOrdered By: Vee Horton on 12-14-2022 ALP [Catalytic activity/Vol] 79 U/L 45-117 [facility] ALT [Catalytic activity/Vol] 25 U/L 16-61 [facility] CO2 [Moles/Vol] 28.0 mmol/L 21.0-32.0 [facility] Globulin (S) [Mass/Vol] 3.6 g/dL 2.2-4.2 [facility] Urea nitrogen/Creatinine [Mass ratio] 11.1 mg/mg 10-20 [facility] Laboratory - CoagulationOrde red By: Vee Horton on 12-14-2022 aPTT Coag (Bld) [Time] 34.2 s 24.1-36.2 [facility] PT Coag (PPP) [Time] 14.5 s 11.7-14.9 [facility] - Hematology and Cell countsOrdered By: Vee Horton on 12-14-2022 Erythrocyte distribution width (RBC) [Entitic vol] 43.7 fL 35.1-43.9 [facility] Erythrocyte distribution width (RBC) [Ratio] 13.3 % 11.6-14.6 [facility] Immature granulocytes/100 WBC (Bld) 0.600 % 0.0-0.9 [facility] Comment on above: IG% - Immature Granu locytes (promyelocytes, myelocytes and metamyelocytes) > 1% indicates that a LEFT SHIFT is Present. MCH (RBC) [Entitic mass] 30.3 pg 27.0-32.0 [facility] Nucleated RBC/100 WBC (Bld) [Ratio] 0 % 0-5 [facility] MCHC Auto (RBC) [Mass/Vol]Or dered By: Vee Horton on 12-14-2022 MCHC (RBC) [Mass/Vol] 33.6 g/dL 32-36 [facility] Mucus LM Ql (Urine sed)Order ed By: Vee Horton on 12-14-2022 Mucus Ql (Urine sed) 0 SEEN /hpf [facility] Nitrite Test strip Ql (U)Ord ered By: Vee Horton on 12-14-2022 Nitrite Ql (U) Positive Negative [facility] No Panel InformationOrdered By: Vee Horton on 12-14-2022 Urine Transitional Epithelial Cells 0-5 SEEN /hpf 0-5 [facility] Estimated Creatinine Clearance Calc 68.75 ml/min [facility] Estimated GFR (MDRD) Amer 68 mL/min >60 [facility] Comment on above: GFR Calc Estimated GFR (MDRD) Non-Af Amer 56 mL/min >60 [facility] Comment on above: Non- GFR Calc Platelets bldOrdered By: Funmi Horton on 12-14-2022 Platelets (Bld) [#/Vol] 138 10*3/uL 150-450 [facility] Protein Test strip Ql (U)Ord ered By: Vee Horton on 12-14-2022 Protein Ql (U) 100 mg/dl Negative [facility] Serum or plasma albumin peterson urement (mass/volume)Ordered By: Vee Horton on 12-14-2022 Albumin [Mass/Vol] 3.5 g/dL 3.2-5.0 [facility] Serum or plasma albumin/glob ulin mass ratioOrdered By: Vee Horton on 12-14-2022 Albumin/Globulin [Mass ratio] 1.0 {ratio} 0.9-2.4 [facility] Serum or plasma calcium peterson urement (mass/volume)Ordered By: Vee Horton on 12-14-2022 Calcium [Mass/Vol] 8.8 mg/dL 8.5-10.1 [facility] Serum or plasma creatinine m easurement (mass/volume)Ordered By: Vee Horton on 12-14-2022 Creatinine [Mass/Vol] 1.35 mg/dL 0.70-1.30 [facility] Comment on above: The validity of the calculated GFR & GFRAA in patients over 70 years has not been determined. Clinical correlation is essential. Serum or plasma urea nitroge n measurement (mass/volume)Ordered By: Vee Horton on 12-14-2022 Urea nitrogen [Mass/Vol] 15 mg/dL 7-18 [facility] Squamous epithelial cells de tection in urine sediment by light microscopyOrdered By: Vee Horton on 12-14-2022 Epithelial cells.squamous LM Ql (Urine sed) 0-5 SEEN /hpf 0-5 [facility] Thin prep Papanicolaou smear with manual screeningOrdered By: Vee Horton on 12-14-2022 Thin prep Papanicolaou smear with manual screening 10 U/L 15-37 [facility] Thin prep Papanicolaou smear with manual screening 5 5-15 [facility] UA DIP, URINE (POC)on 2022 BILIRUBIN UA (POCT) Small Abnormal Negative [facility] [place] CLARITY UA (POCT) Cloudy [facility] COLOR UA (POCT) Kath [facility] GLUCOSE UA (POCT) Negative Negative mg/dL [facility] HEMOGLOBIN/BLOOD UA (POCT) Large Abnormal Negative [facility] KETONE UA (POCT) Trace Negative mg/dL [facility] LEUKOCYTES UA (POCT) Small Abnormal Negative [facility] NITRITE UA (POCT) Positive Abnormal Negative [facility] PH UA (POCT) 5.5 4.5 - 8.0 [facility] Protein Ql (U) >=300 Abnormal Negative mg/dL [facility] SPECIFIC GRAVITY UA (POCT) >=1.030 1.005 - 1.030 [facility] UROBILINOGEN UA (POCT) 1.0 E.U./dL Normal E.U./dL [facility] Urine blood detectionOrdered By: Vee Horton on 12-14-2022 RBC Ql (U) 250 /ul Negative [facility] RBC Ql (U) 50-100 SEEN /hpf 0-5 [facility] Urine clarityOrdered By: Funmi Horton on 12-14-2022 Clarity (U) Cloudy Clear [facility] Urine color determinationOrd ered By: Vee Horton on 12-14-2022 Color (U) Kath Yellow [facility] Urine glucose detectionOrder ed By: Vee Horton on 12-14-2022 Glucose Ql (U) Normal mg/dl Normal [facility] Urine leukocyte esterase det ection by dipstickOrdered By: Vee Horton on 12-14-2022 Leukocyte esterase Test strip Ql (U) 500 /ul Negative [facility] Urine pHOrdered By: Vee Horton on 12-14-2022 pH (U) 6.0 [pH] 5.0 - 8.0 [facility] Urine sediment bacteria coun t by microscopy (number/high power field)Ordered By: Vee Horton on 12-14-2022 Bacteria LM.HPF (Urine sed) [#/Area] 1 /[HPF] None Seen [facility] Urine specific gravity measu rementOrdered By: Vee Horton on 12-14-2022 Specific gravity (U) [Rel density] 1.020 1.002-1.03 0 [facility] Urobilinogen Auto test strip Ql (U)Ordered By: Vee Horton on 12-14-2022 Urobilinogen Ql (U) 4 mg/dl Normal [facility] Basophil percentageOrdered B y: Aparna Gooden on 08-08-2022 Chloride [Moles/Vol] 105 mmol/L 98-107 [facility] Glucose [Mass/Vol] 131 mg/dL 74-106 [facility] Comment on above: Fasting Glucose resu lt greater than or equal to 126 mg/dL suggests DIABETES MELLITUS per A.D.A. criteria. Potassium [Moles/Vol] 3.9 mmol/L 3.5-5.1 [facility] Sodium [Moles/Vol] 140 mmol/L 136-145 [facility] Laboratory - Chemistry and C hemistry - challengeOrdered By: Aparna Gooden on 08-08-2022 CO2 [Moles/Vol] 31.0 mmol/L 21.0-32.0 [facility] Urea nitrogen/Creatinine [Mass ratio] 13.3 mg/mg - [facility] No Panel InformationOrdered By: Aparna Gooden on 02-20-2023 Estimated Creatinine Clearance Calc 78.38 ml/min [facility] Estimated GFR (MDRD) Amer 78 mL/min >60 [facility] Comment on above: GFR Calc Estimated GFR (MDRD) Non-Af Amer 65 mL/min >60 [facility] Comment on above: Non- GFR Calc Serum or plasma calcium peterson urement (mass/volume)Ordered By: Aparna Gooden on 08-08-2022 Calcium [Mass/Vol] 9.4 mg/dL 8.5-10.1 [facility] Serum or plasma creatinine m easurement (mass/volume)Ordered By: Aparna Gooden on 08-08-2022 Creatinine [Mass/Vol] 1.20 mg/dL 0.70-1.30 [facility] Comment on above: The validity of the calculated GFR & GFRAA in patients over 70 years has not been determined. Clinical correlation is essential. Serum or plasma urea nitroge n measurement (mass/volume)Ordered By: Aparna Gooden on 08-08-2022 Urea nitrogen [Mass/Vol] 16 mg/dL 7-18 [facility] Thin prep Papanicolaou smear with manual screeningOrdered By: Aparna Gooden on 08-08-2022 Thin prep Papanicolaou smear with manual screening 4 5-15 [facility] Basophil percentageOrdered B y: Dr. Alfred on 06-16-2022 Chloride [Moles/Vol] 109 mmol/L 98-107 [facility] Glucose [Mass/Vol] 103 mg/dL 74-106 [facility] Comment on above: Fasting Glucose resu lt from 100 to 125 mg/dL suggests IMPAIRED HOMEOSTASIS per A.D.A. criteria. Potassium [Moles/Vol] 3.9 mmol/L 3.5-5.1 [facility] Comment on above: Slight Hemolysis, Re sult may be falsely increased. Sodium [Moles/Vol] 142 mmol/L 136-145 [facility] Laboratory - Chemistry and C hemistry - challengeOrdered By: Dr. Alfred on 06-16-2022 CO2 [Moles/Vol] 30.0 mmol/L 21.0-32.0 [facility] Urea nitrogen/Creatinine [Mass ratio] 15.0 mg/mg 10- [facility] No Panel InformationOrdered By: Dr. Alfred on 06-16-2022 Estimated GFR (MDRD) Amer 97 mL/min >60 [facility] Comment on above: GFR Calc Estimated GFR (MDRD) Non-Af Amer 80 mL/min >60 [facility] Comment on above: Non- GFR Calc Serum or plasma calcium peterson urement (mass/volume)Ordered By: Dr. Alfred on 06-16-2022 Calcium [Mass/Vol] 8.9 mg/dL 8.5-10.1 [facility] Serum or plasma creatinine m easurement (mass/volume)Ordered By: Dr. Alfred on 06-16-2022 Creatinine [Mass/Vol] 1.00 mg/dL 0.70-1.30 [facility] Comment on above: The validity of the calculated GFR & GFRAA in patients over 70 years has not been determined. Clinical correlation is essential. Serum or plasma urea nitroge n measurement (mass/volume)Ordered By: Dr. Alfred on 06-16-2022 Urea nitrogen [Mass/Vol] 15 mg/dL 7-18 [facility] Thin prep Papanicolaou smear with manual screeningOrdered By: Dr. Alfred on 06-16-2022 Thin prep Papanicolaou smear with manual screening 3 5-15 [facility] Absolute lymphocyte countOrd ered By: Dr. Shi on 05-07-2022 Lymphocytes Auto (Unsp spec) [#/Vol] 1.31 10*3/uL 0.83-4.51 [facility] Basophil percentageOrdered B y: Dr. Shi on 05-07-2022 Basophils/100 WBC (Bld) 0.3 % 0-1 [facility] Chloride [Moles/Vol] 109 mmol/L 98-107 [facility] Eosinophils/100 WBC (Bld) 1.6 % 0-5 [facility] Glucose [Mass/Vol] 101 mg/dL 74-106 [facility] Comment on above: Fasting Glucose resu lt from 100 to 125 mg/dL suggests IMPAIRED HOMEOSTASIS per A.D.A. criteria. Neutrophils (Bld) [#/Vol] 3.9 10*3/uL 2.0-7.7 [facility] Neutrophils/100 WBC (Bld) 66.6 % 47-70 [facility] Potassium [Moles/Vol] 3.7 mmol/L 3.5-5.1 [facility] Sodium [Moles/Vol] 141 mmol/L 136-145 [facility] WBC (Bld) [#/Vol] 5.8 10*3/uL 4.4-11.0 [facility] Blood erythrocytes count (nu mber/volume)Ordered By: Dr. Shi on 05-07-2022 RBC (Bld) [#/Vol] 5.62 10*6/uL 4.6-6.2 [facility] Blood hemoglobin measurement (mass/volume)Ordered By: Dr. Shi on 05-07-2022 Hemoglobin (Bld) [Mass/Vol] 16.1 g/dL 13.0-16.5 [facility] Blood lymphocytes/100 leukoc ytesOrdered By: Dr. Shi on 05-07-2022 Lymphocytes/100 WBC (Bld) 22.6 % 19-41 [facility] Blood monocytes/100 leukocyt esOrdered By: Dr. Shi on 05-07-2022 Monocytes/100 WBC (Bld) 8.6 % 0-10 [facility] Blood platelet mean volumeOr dered By: Dr. Shi on 05-07-2022 Platelet mean volume (Bld) [Entitic vol] 11.5 fL 6.2-12.0 [facility] Determination of erythrocyte mean corpuscular volume (MCV)Ordered By: Dr. Shi on 05-07-2022 MCV (RBC) [Entitic vol] 85.4 fL 80-94 [facility] Hematocrit Auto (Bld) [Volum e fraction]Ordered By: Dr. Shi on 05-07-2022 Hematocrit (Bld) [Volume fraction] 48.0 % 40-54 [facility] Laboratory - Chemistry and C hemistry - challengeOrdered By: Dr. Shi on 05-07-2022 CO2 [Moles/Vol] 29.0 mmol/L 21.0-32.0 [facility] Urea nitrogen/Creatinine [Mass ratio] 10.6 mg/mg 10-20 [facility] Laboratory - Hematology and Cell countsOrdered By: Dr. Shi on 05-07-2022 Erythrocyte distribution width (RBC) [Entitic vol] 42.3 fL 35.1-43.9 [facility] Erythrocyte distribution width (RBC) [Ratio] 13.8 % 11.6-14.6 [facility] Immature granulocytes/100 WBC (Bld) 0.300 % 0.0-0.9 [facility] Comment on above: IG% - Immature Granu locytes (promyelocytes, myelocytes and metamyelocytes) > 1% indicates that a LEFT SHIFT is Present. MCH (RBC) [Entitic mass] 28.6 pg 27.0-32.0 [facility] Nucleated RBC/100 WBC (Bld) [Ratio] 0 % 0-5 [facility] MCHC Auto (RBC) [Mass/Vol]Or dered By: Dr. Shi on 05-07-2022 MCHC (RBC) [Mass/Vol] 33.5 g/dL 32-36 [facility] No Panel InformationOrdered By: Dr. Shi on 05-07-2022 Troponin I High Sensitivity 13 pg/mL 3.0-78.0 [facility] Comment on above: Please Note: New Crissy t Units and Gender Specific Reference Ranges. For more information see Policy Stat Procedure [place] High Sensitivity Troponin (TNIH) and attachments. Estimated Creatinine Clearance Calc 90.43 ml/min [facility] Estimated GFR (MDRD) Amer 92 mL/min >60 [facility] Comment on above: GFR Calc Estimated GFR (MDRD) Non-Af Amer 76 mL/min >60 [facility] Comment on above: Non- GFR Calc Platelets bldOrdered By: Dr. Shi on 05-07-2022 Platelets (Bld) [#/Vol] 156 10*3/uL 150-450 [facility] Serum or plasma calcium peterson urement (mass/volume)Ordered By: Dr. Shi on 05-07-2022 Calcium [Mass/Vol] 8.8 mg/dL 8.5-10.1 [facility] Serum or plasma creatinine m easurement (mass/volume)Ordered By: Dr. Shi on 05-07-2022 Creatinine [Mass/Vol] 1.04 mg/dL 0.70-1.30 [facility] Comment on above: The validity of the calculated GFR & GFRAA in patients over 70 years has not been determined. Clinical correlation is essential. Serum or plasma urea nitroge n measurement (mass/volume)Ordered By: Dr. Shi on 05-07-2022 Urea nitrogen [Mass/Vol] 11 mg/dL 7-18 [facility] Thin prep Papanicolaou smear with manual screeningOrdered By: Dr. Shi on 05-07-2022 Thin prep Papanicolaou smear with manual screening 3 5-15 [facility] Absolute lymphocyte countOrd ered By: Dr. Alfred on 04-29-2022 Lymphocytes Auto (Unsp spec) [#/Vol] 1.25 10*3/uL 0.83-4.51 [facility] Basophil percentageOrdered B y: Dr. Alfred on 04-29-2022 Basophils/100 WBC (Bld) 0.3 % 0-1 [facility] Chloride [Moles/Vol] 107 mmol/L 98-107 [facility] Eosinophils/100 WBC (Bld) 1.2 % 0-5 [facility] Glucose [Mass/Vol] 147 mg/dL 74-106 [facility] Comment on above: Fasting Glucose resu lt greater than or equal to 126 mg/dL suggests DIABETES MELLITUS per A.D.A. criteria. Neutrophils (Bld) [#/Vol] 5.5 10*3/uL 2.0-7.7 [facility] Neutrophils/100 WBC (Bld) 74.4 % 47-70 [facility] Potassium [Moles/Vol] 3.7 mmol/L 3.5-5.1 [facility] Sodium [Moles/Vol] 141 mmol/L 136-145 [facility] WBC (Bld) [#/Vol] 7.4 10*3/uL 4.4-11.0 [facility] Blood erythrocytes count (nu mber/volume)Ordered By: Dr. Alfred on 04-29-2022 RBC (Bld) [#/Vol] 5.68 10*6/uL 4.6-6.2 [facility] Blood hemoglobin measurement (mass/volume)Ordered By: Dr. Alfred on 04-29-2022 Hemoglobin (Bld) [Mass/Vol] 16.8 g/dL 13.0-16.5 [facility] Blood lymphocytes/100 leukoc ytesOrdered By: Dr. Alfred on 04-29-2022 Lymphocytes/100 WBC (Bld) 16.9 % 19-41 [facility] Blood monocytes/100 leukocyt esOrdered By: Dr. Alfred on 04-29-2022 Monocytes/100 WBC (Bld) 6.9 % 0-10 [facility] Blood platelet mean volumeOr dered By: Dr. Alfred on 04-29-2022 Platelet mean volume (Bld) [Entitic vol] 12.1 fL 6.2-12.0 [facility] Determination of erythrocyte mean corpuscular volume (MCV)Ordered By: Dr. Alfred on 04-29-2022 MCV (RBC) [Entitic vol] 86.3 fL 80-94 [facility] Hematocrit Auto (Bld) [Volum e fraction]Ordered By: Dr. Alfred on 04-29-2022 Hematocrit (Bld) [Volume fraction] 49.0 % 40-54 [facility] Laboratory - Chemistry and C hemistry - challengeOrdered By: Dr. Alfred on 04-29-2022 CO2 [Moles/Vol] 28.0 mmol/L 21.0-32.0 [facility] Magnesium [Mass/Vol] 2.3 mg/dL 1.6-2.6 [facility] Urea nitrogen/Creatinine [Mass ratio] 16.2 mg/mg 10-20 [facility] Laboratory - Hematology and Cell countsOrdered By: Dr. Alfred on 04-29-2022 Erythrocyte distribution width (RBC) [Entitic vol] 42.8 fL 35.1-43.9 [facility] Erythrocyte distribution width (RBC) [Ratio] 13.7 % 11.6-14.6 [facility] Immature granulocytes/100 WBC (Bld) 0.300 % 0.0-0.9 [facility] Comment on above: IG% - Immature Granu locytes (promyelocytes, myelocytes and metamyelocytes) > 1% indicates that a LEFT SHIFT is Present. MCH (RBC) [Entitic mass] 29.6 pg 27.0-32.0 [facility] Nucleated RBC/100 [facility] (Bld) [[facility] 0 [facility] [Mass/Vol]Or dered By: Dr. Alfred on 04-29-2022 MCHC (RBC) [Mass/Vol] 34.3 g/dL 32-36 [facility] No Panel InformationOrdered By: Dr. Alfred on 04-29-2022 Estimated GFR (MDRD) Amer 71 mL/min >60 [facility] Comment on above: GFR Calc Estimated GFR (MDRD) Non-Af Amer 59 mL/min >60 [facility] Comment on above: Non- GFR Calc Thyroid Stimulating Hormone (TSH) 1.24 uIU/mL 0.358-3.74 [facility] Platelets bldOrdered By: Dr. Alfred on 04-29-2022 Platelets (Bld) [#/Vol] 163 10*3/uL 150-450 [facility] Serum or plasma calcium peterson urement (mass/volume)Ordered By: Dr. Alfred on 04-29-2022 Calcium [Mass/Vol] 9.5 mg/dL 8.5-10.1 [facility] Serum or plasma creatinine m easurement (mass/volume)Ordered By: Dr. Alfred on 04-29-2022 Creatinine [Mass/Vol] 1.30 mg/dL 0.70-1.30 [facility] Comment on above: The validity of the calculated GFR & GFRAA in patients over 70 years has not been determined. Clinical correlation is essential. Serum or plasma urea nitroge n measurement (mass/volume)Ordered By: Dr. Alfred on 04-29-2022 Urea nitrogen [Mass/Vol] 21 mg/dL 7-18 [facility] Thin prep Papanicolaou smear with manual screeningOrdered By: Dr. Alfred on 04-29-2022 Thin prep Papanicolaou smear with manual screening 6 5-15 [facility] Basophil percentageOrdered B y: Dr. Ramos on 04-25-2022 Testosterone [Mass/Vol] 367.66 ng/dL [facility] Comment on above: CENTRAL 90% REFERENC E RANGES MALE AGE <50 197.44 - 669.58 ng/dL MALE AGE > or = 50 187.72 - 684.19 ng/dL FEMALE AGE <50 8.38 - 35.01 ng/dL FEMALE AGE > or = 50 <7.00 - 35.92 ng/dL Effective as of 01/12/21 Basophil percentageOrdered B y: Dr. Alfred on 04-20-2022 Bilirubin [Mass/Vol] 1.10 mg/dL 0.20-1.00 [facility] Comment on above: For patients on eltr ombopag therapy, use of Dimension [place] TBIL is not recommended. Cholesterol [Mass/Vol] 73 mg/dL <200 [facility] Comment on above: <200 mg/dL Desirable 200-240 mg/dL Borderline >240 mg/dL High Risk Protein [Mass/Vol] 7.3 g/dL 6.4-8.2 [facility] Triglyceride [Mass/Vol] 139 mg/dL <199 [facility] Comment on above: The drugs N-Acetylcy steine and Metamizole may falsely depress this assay.Serum Triglycerides Reference Interval Normal <150 mg/dL Borderline high 150 - 199 mg/dL High 200 - 499 mg/dL Very High > or = 500 mg/dL Direct bilirubinOrdered By: Dr. Alfred on 04-20-2022 Bilirubin.direct [Mass/Vol] 0.31 mg/dL 0.00-0.30 [facility] LIPID PANEL (OUTSIDE)on Non-HDL Cholesterol [facility] [place] VLDL Cholesterol 28 [facility] Laboratory - Chemistry and C hemistry - challengeOrdered By: Dr. Alfred on 04-20-2022 ALP [Catalytic activity/Vol] 77 U/L 45-117 [facility] ALT [Catalytic activity/Vol] 37 U/L 16-61 [facility] Globulin (S) [Mass/Vol] 3.4 g/dL 2.2-4.2 [facility] No Panel InformationOrdered By: Dr. Alfred on 04-20-2022 Prostate Specific Antigen Screen 2.95 ng/mL 0.00-4.00 [facility] Comment on above: This test was perfor med using the TPSA assay method for the[facility] Hospital[facility]entabilities chemistry system. Values obtained with differentassay methods cannot be used interchangably.When changing PSA assays in the course of monitoring apatient, additional sequential testing should be carriedout to confirm baseline values. Serum or plasma albumin peterson urement (mass/volume)Ordered By: Dr. Alfred on 04-20-2022 Albumin [Mass/Vol] 3.9 g/dL 3.2-5.0 [facility] Serum or plasma cholesterol in HDL measurement (mass/volume)Ordered By: Dr. Alfred on 04-20-2022 Cholesterol in HDL [Mass/Vol] 27 mg/dL >40 [facility] Comment on above: The drugs N-Acetylcy steine and Metamizole may falsely depress this assay. Reference Range HDL <40 mg/dL Low HDL Cholesterol HDL >or= 60 mg/dL High HDL Cholesterol Serum or plasma cholesterol in VLDL measurement (mass/volume)Ordered By: Dr. Alfred on 04-20-2022 Cholesterol in VLDL [Mass/Vol] 28 mg/dL 5-40 [facility] Serum or plasma low density lipoprotein (LDL) cholesterol measurement (mass/volume)Ordered By: Dr. Alfred on 04-20-2022 Cholesterol in LDL [Mass/Vol] 18 mg/dL 0-130 [facility] Thin prep Papanicolaou smear with manual screeningOrdered By: Dr. Alfred on 04-20-2022 Thin prep Papanicolaou smear with manual screening 21 U/L 15-37 [facility] Absolute lymphocyte counton 02-12-2022 Lymphocytes Auto (Unsp spec) [#/Vol] 1.10 10*3/uL 0.83-4.51 [facility] Work Phone: Basophil percentageon 2021 Basophils/100 WBC (Bld) 0.2 % 0-1 [facility] Work Phone: Bilirubin [Mass/Vol] 1.00 mg/dL 0.20-1.00 [facility] Work Phone: Comment on above: For patients on eltr ombopag therapy, use of Dimension [place] TBIL is not recommended. Chloride [Moles/Vol] 110 mmol/L 98-107 [facility] Work Phone: Eosinophils/100 WBC (Bld) 2.5 % 0-5 [facility] Work Phone: Glucose [Mass/Vol] 94 mg/dL 74-106 [facility] Work Phone: Neutrophils (Bld) [#/Vol] 3.6 10*3/uL 2.0-7.7 [facility] Work Phone: Neutrophils/100 WBC (Bld) 67.4 % 47-70 [facility] Work Phone: Potassium [Moles/Vol] 4.1 mmol/L 3.5-5.1 [facility] Work Phone: Protein [Mass/Vol] 7.3 g/dL 6.4-8.2 [facility] Work Phone: [phone] Sodium [Moles/Vol] 141 mmol/L 136-145 [facility] Work Phone: WBC (Bld) [#/Vol] 5.3 10*3/uL 4.4-11.0 [facility] Work Phone: [phone] Blood erythrocytes count (nu mber/volume)on 02-12-2022 RBC (Bld) [#/Vol] 5.64 10*6/uL 4.6-6.2 [facility]: Blood hemoglobin measurement (mass/volume)on 02-12-2022 Hemoglobin (Bld) [Mass/Vol] 15.8 g/dL 13.0-16.5 [facility] Work Phone: Blood lymphocytes/100 leukoc yteson 02-12-2022 Lymphocytes/100 WBC (Bld) 20.8 % 19-41 [facility] Work Phone: Blood monocytes/100 leukocyt eson 02-12-2022 Monocytes/100 WBC (Bld) 8.9 % 0-10 [facility] Work Phone: [phone] Blood platelet mean volumeon 02-12-2022 Platelet mean volume (Bld) [Entitic vol] 11.3 fL 6.2-12.0 [facility] Work Phone: Determination of erythrocyte mean corpuscular volume (MCV)on 02-12-2022 MCV (RBC) [Entitic vol] 86.0 fL 80-94 [facility] Work Phone: Erythrocyte sedimentation ra ankush 02-12-2022 ESR (Bld) [Velocity] 6 mm/h 0-20 [facility] Work Phone: Hematocrit Auto (Bld) [Volum e fraction]on 02-12-2022 Hematocrit (Bld) [Volume fraction] 48.5 % 40-54 [facility] Work Phone: Laboratory - Chemistry and C hemistry - challengeon 02-12-2022 ALP [Catalytic activity/Vol] 74 U/L 45-117 [facility] Work Phone: ALT [Catalytic activity/Vol] 34 U/L 16-61 [facility] Work Phone: CO2 [Moles/Vol] 30.0 mmol/L 21.0-32.0 [facility] Work Phone: Globulin (S) [Mass/Vol] 3.3 g/dL 2.2-4.2 [facility] Work Phone: Urea nitrogen/Creatinine [Mass ratio] 16.0 mg/mg 10-20 [facility] Work Phone: Laboratory - Hematology and Cell countson 02-12-2022 Erythrocyte distribution width (RBC) [Entitic vol] 41.6 fL 35.1-43.9 [facility] Work Phone: Erythrocyte distribution width (RBC) [Ratio] 13.5 % 11.6-14.6 [facility] Work Phone: Immature granulocytes/100 WBC (Bld) 0.200 % 0.0-0.9 [facility] Work Phone: Comment on above: IG% - Immature Granu locytes (promyelocytes, myelocytes and metamyelocytes) > 1% indicates that a LEFT SHIFT is Present. MCH (RBC) [Entitic mass] 28.0 pg 27.0-32.0 [facility] Work Phone: Nucleated RBC/100 WBC (Bld) [Ratio] 0 % 0-5 [facility] Work Phone: MCHC Auto (RBC) [Mass/Vol]on 02-12-2022 MCHC (RBC) [Mass/Vol] 32.6 g/dL 32-36 [facility] Work Phone: No Panel Informationon 02-12 Estimated Creatinine Clearance Calc 88.73 ml/min [facility] Work Phone: Estimated GFR (MDRD) Amer 90 mL/min >60 [facility] Work Phone: Comment on above: GFR Calc Estimated GFR (MDRD) Non-Af Amer 75 mL/min >60 [facility] Work Phone: Comment on above: Non- GFR Calc Platelets bldon 02-12-2022 Platelets (Bld) [#/Vol] 142 10*3/uL 150-450 [facility] Work Phone: Serum or plasma albumin peterson urement (mass/volume)on 02-12-2022 Albumin [Mass/Vol] 4.0 g/dL 3.2-5.0 [facility] Work Phone: Serum or plasma albumin/glob ulin mass ratioon 02-12-2022 Albumin/Globulin [Mass ratio] 1.2 {ratio} 0.9-2.4 [facility] Work Phone: Serum or plasma calcium peterson urement (mass/volume)on 02-12-2022 Calcium [Mass/Vol] 9.1 mg/dL 8.5-10.1 [facility] Work Phone: Serum or plasma creatinine m easurement (mass/volume)on 02-12-2022 Creatinine [Mass/Vol] 1.06 mg/dL 0.70-1.30 [facility] Work Phone: Comment on above: The validity of the calculated GFR & GFRAA in patients over 70 years has not been determined. Clinical correlation is essential. Serum or plasma urea nitroge n measurement (mass/volume)on 02-12-2022 Urea nitrogen [Mass/Vol] 17 mg/dL 7-18 [facility] Work Phone: Thin prep Papanicolaou smear with manual screeningon 02-12-2022 Thin prep Papanicolaou smear with manual screening 20 U/L 15-37 [facility] Work Phone: Thin prep Papanicolaou smear with manual screening 1 5-15 [facility] Work Phone: No Panel Informationon 11-29 D-Dimer Quantitative (PE/DVT) 0.40 FEU/ug/m 0.27-0.49 [facility] Work Phone: Comment on above: NORMAL D-Dimer level (<0.50) indicates no DVT or PE. XR Chest PA and Lateralon IMPRESSION: Left basilar atelectasis or mild infiltrates unchanged. Coding Spec: PSCB Transcribe Date/Time: Nov 29 2021 1:44P [...] ZZZ_DO_NOT_ USE_DIVISIO N OF RADIOLOGY Provider, [facility] - 11/29/2021 * * *Final Report* * [...] Left basilar atelectasis or mild infiltrates unchanged. Coding Spec: PSCB Transcribe Date/Time: Nov 29 2021 1:44P Dictated by : LETTY THOMAS MD This examination was interpreted and the report reviewed and electronically signed by: LETTY THOMAS MD on Nov 29 2021 1:46PM EST [facility] Radiology Study observation (narrative) [facility] XR Chest PA and LateralOrder ed By: Ccf Provider on 11-29-2021 [facility] Basophil percentageon 2021 Testosterone [Mass/Vol] 128.64 ng/dL [facility] Work Phone: Comment on above: CENTRAL 90% REFERENC E RANGES MALE AGE <50 197.44 - 669.58 ng/dL MALE AGE > or = 50 187.72 - 684.19 ng/dL FEMALE AGE <50 8.38 - 35.01 ng/dL FEMALE AGE > or = 50 <7.00 - 35.92 ng/dL Effective as of 01/12/21 Serum or plasma testosterone free measurement (mass/volume)on 10-20-2021 Testosterone Free [Mass/Vol] 2.0 pg/mL 6.6-18.1 [facility] Work Phone: Comment on above: Performed at: [facility] [address] [id number] Director: Teresa Olivia MD, Phone: [phone] No Panel Informationon 09-10 IMPRESSION: 1. Right ankle grossly unremarkable. 2. First MTP joint degenerative arthritis again noted. Bones otherwise intact in the right foot. Coding Spec: OSMANI Transcribe Date/Time: Sep 10 2021 6:58P Dictated by : TASIA OWEN MD This examination was interpreted and the report reviewed and electronically signed by: TASIA OWEN MD on Sep 10 2021 7:00PM [facility] DIVISION OF RADIOLOGY Radiology Study observation (narrative) [facility] No Panel InformationOrdered By: Ccf Provider on 09-10-2021 [facility] XR Ankle - right AP and Late ral and obliqueon 09-10-2021 * * *Final Report* * * DATE OF EXAM: Sep 10 2021 4:32PM STX 5297 - XR ANKLE 3V AP/LAT/OBL RT / PROCEDURE REASON: Pain * * * * Physician Interpretation * * * * HISTORY: chronic right ankle pain (accession [id number]), chronic right foot pain (accession [id number]). Pain . TECHNIQUE: XR ANKLE 3V AP/LAT/OBL [...] navicular bone unchanged. DIVISION OF RADIOLOGY Provider, [facility] - 09/10/2021 * * *Final Report* * * DATE OF EXAM: Sep 10 2021 4:32PM STX 5297 - XR ANKLE 3V AP/LAT/OBL RT / PROCEDURE REASON: Pain * * * * Physician Interpretation * * * * HISTORY: chronic right ankle pain (accession [id number]), chronic right foot pain (accession [id number]). Pain . TECHNIQUE: XR ANKLE 3V AP/LAT/OBL [...] Bones otherwise intact in the right foot. Coding Spec: [facility] Transcribe Date/Time: Sep 10 2021 6:58P Dictated by : TASIA OWEN MD This examination was interpreted and the report reviewed and electronically signed by: TASIA OWEN MD on Sep 10 2021 7:00PM EST [facility] XR Foot - right AP and Later al and obliqueon 09-10-2021 * * *Final Report* * * DATE OF EXAM: Sep 10 2021 4:32PM STX 5337 - XR FOOT 3V AP/LAT/OBL RT / PROCEDURE REASON: Pain * * * * Physician Interpretation * * * * HISTORY: chronic right ankle pain (accession [id number]), chronic right foot pain (accession [id number]). Pain . TECHNIQUE: XR ANKLE 3V AP/LAT/OBL [...] navicular bone unchanged. DIVISION OF RADIOLOGY Provider, [facility] Sukumar Rocha - 09/10/2021 * * *Final Report* * * DATE OF EXAM: Sep 10 2021 4:32PM STX 5337 - XR FOOT 3V AP/LAT/OBL RT / PROCEDURE REASON: Pain * * * * Physician Interpretation * * * * HISTORY: chronic right ankle pain (accession [id number]), chronic right foot pain (accession [id number]). Pain . TECHNIQUE: XR ANKLE 3V AP/LAT/OBL [...] Bones otherwise intact in the right foot. Coding Spec: PSCB Transcribe Date/Time: Sep 10 2021 6:58P Dictated by : TASIA OWEN MD This examination was interpreted and the report reviewed and electronically signed by: TASIA OWEN MD on Sep 10 2021 7:00PM [facility] CSon 09-05-2020 [facility] REPORT Normal [facility] DATE OF SERVICE: SUBJECTIVE: Patient is here with a history of gout and right great toe pain beginning several days after he stopped taking his allopurinol. OBJECTIVE: Right great toe is tender. ASSESSMENT: Gout. PLAN: Prednisone 60 mg daily for up to 5 days. Resume other medications. MD ESEQUIEL Godoy/[id number] SSI File#: [id number] END OF DOCUMENT / CHANGE LOG FOLLOWS Last Edited By [employer]. Signed By Juana Rosa MD #NAUTH Juana Rosa MD #NAUTH on 09/14/2020 09:32 ET on 09/14/2020 09:32 ET Revision Number - 2 * [facility] PATIENT NAME: JERO GARZON [address] [facility] MEDICAL REC #: [id number] [place], [place] [facility] Verified/Reviewed by 09/14/20 0932 KELVIN * [facility] PATIENT NAME: JERO GARZON [address] MEDICAL REC #: [id number] [place], [place] [facility] PHYSIC[facility] XR Foot - right AP and Later al and obliqueon 04-29-2020 IMPRESSION: No acute findings. Coding Spec: OSMANI Transcribe Date/Time: Apr 29 2020 9:20A Dictated by : NAIDA BARAJAS MD This examination was interpreted and the report reviewed and electronically signed by: NAIDA BARAJAS MD on Apr 29 2020 9:22AM [facility] DIVISION OF RADIOLOGY * * *Final [...] other significant abnormality. DIVISION OF RADIOLOGY Provider, [facility] - 04/29/2020 * * *Final Report* [...] significant abnormality. IMPRESSION IMPRESSION: No acute findings. Coding Spec: OSMANI Transcribe Date/Time: Apr 29 2020 9:20A Dictated by : NAIDA BARAJAS MD This examination was interpreted and the report reviewed and electronically signed by: NAIDA BARAJAS MD on Apr 29 2020 9:22AM EST [facility] XR Foot - right AP and Later al and obliqueOrdered By: Ccf Provider on 04-29-2020 [facility] XR Foot - right AP and Later al and obliqueon 04-28-2020 Radiology Study observation (narrative) [facility] .GFRon 08-28-2019 GFR 75 ml/min/1.73sqm Normal [facility] ([place]) Comment on above: Result Comment: GFR Population [...] Performed By: #### C RE, GFR #### [address] [address] GFR Non- 62 ml/min/1.73sqm Normal [facility] ([place]) Comment on above: Result Comment: GFR Population [...] Performed By: #### C RE, GFR #### [address] [address] CREon 08-28-2019 Creatinine [Mass/Vol] 1.19 mg/dL Normal 0.70-1.30 [facility] ([place]) Comment on above: Performed By: #### C RE, GFR #### [place] [address] [address] ENTEROGRAPHY ABD/PELVIS W /CONTRASTon 08-28-2019 CT [...] Date: 08/28/2019 10:39:54 AM Ordering Provider:Fabian Hauser [facility] ([place]) EMERGENCY REPORTon 8 EMERGENCY REPORT [facility] EM ERGENCY ROOM REPORT NAME ACCOUNT SEX AGE ADMIT DISCHARGE PT MED. RECORD# NUMBER DATE DATE TYPE DURAN [id number] Sincere 62 10/30/17 10/30/17 3 JERO [id number] ROOM: ER DATE OF : 1955 DICTATING PHYSICIAN: Chloe Souza HISTORY OF PRESENT ILLNESS: The patient [...] years. 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 PAST MEDICAL HISTORY: TIA, hypertension. PAST SURGICAL [...] was given aspirin. Page 1 of 2 JERO GARZON Emergency Room Report PLAN/DISPOSITION: We did try to get him transferred to [facility]; however, they do no have any beds. 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 Alfred. Dictated By: Chloe Souza DO 10/30/17 10:48 JOB #: [id number] Transcribed By: am 10/30/17 17:37 Electronically signed by: NATALIA Souza D.O. 11/05/17 09:59 Page 2 of 2 JERO GARZON Emergency Room Report Normal [facility] APTTon 10-30-2017 aPTT 29.2 s Normal 21.6 - 35.4 [facility] Comment on above: Performed By: #### 2 15801 ####[facility],[address] [place] [address] CBCon 10-30-2017 Basophils Auto #/vol (Bld) 0.00 x10EE3/UL Normal 0.00 - 0.10 [facility] Comment on above: Performed By: #### 2 01831 ####[facility],[address] [place], [place] [id number] Basophils/100 WBC Auto (Bld) 0.5 % Normal 0.0 - 2.0 [facility] Comment on above: Performed By: #### 2 39188 ####[facility],[address] [place], [place] [id number] Blood morphology N/A Normal [facility] Comment on above: Result Comment: {CD] Performed By: #### 2 38149 ####[facility],[address] [place] [address] CBC Normal [facility] Comment on above: Result Comment: CBC- COMPLETE BLOOD COUNT Performed By: #### 2 14125 ####[facility],[address] [place], [place] [address] Eosinophils 0.10 x10EE3/UL Normal 0.00 - 0.50 [facility] Comment on above: Performed By: #### 2 23337 ####[facility],[address] [place] [address] Eosinophils/100 leukocytes 1.2 % Normal 0.0 - 7.0 [facility] Comment on above: Performed By: #### 2 69923 ####[facility],[address] [place] [address] Erythrocyte distribution width Auto Ratio (RBC) 14.5 % Normal 12.0 - 15.6 [facility] Comment on above: Performed By: #### 2 52064 ####[facility],[address] [place] [address] Erythrocytes (RBC) 6.19 x 10EE6/UL High 4.50 - 6.00 [facility] Comment on above: Performed By: #### 2 49154 ####[facility],[address] [place], [place] [phone] Hematocrit (HCT) 50.5 % Normal 40.0 - 52.0 [facility] Comment on above: Performed By: #### 2 74597 ####[facility],[address] [place] [address] Hemoglobin mass conc (Bld) 17.7 g/dL High 13.0 - 17.5 [facility] Comment on above: Performed By: #### 2 38848 ####[facility],[address] [place] [address] Lymphocytes 1.20 x10EE3/UL Normal 0.80 - 2.80 [facility] Comment on above: Performed By: #### 2 64919 ####[facility],[address] [place], [place] [address] Lymphocytes/100 leukocytes 20.2 % Normal 20.0 - 45.0 [facility] Comment on above: Performed By: #### 2 05552 ####[facility],[address] [place], [place] [address] MANUAL DIFF N/A Normal [facility] Comment on above: Performed By: #### 2 07413 ####[facility],[address] [place], [place] [address] MCH 29 pg Normal 27 - 33 [facility] Comment on above: Performed By: #### 2 32520 ####[facility],[address] [place] [address] MCHC mass conc (RBC) 35 X10 3 Normal 32 - 36 [facility] Comment on above: Performed By: #### 2 43829 ####[facility],[address] [place] [address] MCV 82 fL Normal 81 - 98 [facility] Comment on above: Performed By: #### 2 63064 ####[facility],[address] [place] [address] Monocytes 0.50 x10EE3/UL Normal 0.20 - 1.00 [facility] Comment on above: Performed By: #### 2 25945 ####[facility],[address],[place] [address] MONOS % 8.3 % Normal 0.0 - 10.0 [facility] Comment on above: Performed By: #### 2 36154 ####[facility],[address] [place] [address] Neutrophils 4.30 x10EE3/UL Normal 1.50 - 7.10 [facility] Comment on above: Performed By: #### 2 99864 ####[facility],[address] [place] [address] Neutrophils/100 WBC Auto (Bld) 69.8 % Normal 46.0 - 76.0 [facility] Comment on above: Performed By: #### 2 96065 ####[facility],[address] [place] [address] Platelet mean volume (PMV) 9.4 fL Normal 6.4 - 10.5 [facility] Comment on above: Result Comment: AUTO MATED DIFFERENTIAL Performed By: #### 2 95512 ####[facility],[address] [place] [address] Platelets 137 x10EE3/UL Low 150 - 450 [facility] Comment on above: Performed By: #### 2 99765 ####[facility],[address] [place] [address] WBC (Leukocytes) 6.2 x 10EE3/UL Normal 4.5 - 10.8 [facility] Comment on above: Performed By: #### 2 92432 ####[facility],[address] [place] [address] CHEST 1 VIEWon 10-30-2017 CHEST 1 VIEW [place] [address] Patient: JERO GARZON Phone#: : 1955 Age: 62 Gender: M Pt. Type: ER Account: [id number] Location: [facility] Ordering: CHLOE ALYSA Exam Date: 10/30/2017/9:06 Family Phys: Charge Code: [id number] Physician: [place] Order #: [id number] DLP Dose#: PROCEDURE: X-RAY CHEST 1 VIEW [...] Samayoa MD on 10/30/2017 at 9:28 Normal [facility] CMP with eGFRon 10-30-2017 Age 62 years Normal [facility] Comment on above: Performed By: #### 2 80983 ####[facility],[address] [place] [address] Albumin 4.4 g/dL Normal 3.4 - 4.8 [facility] Comment on above: Performed By: #### 2 61446 ####[facility],[address] [place] [address] Albumin/Globulin Ratio 1.9 {ratio} High 0.9 - 1.6 [facility] Comment on above: Performed By: #### 2 15918 ####[facility],[address] [place] [address] ALK PHOS 55 U/L Normal 38 - 126 [facility] Comment on above: Performed By: #### 2 55792 ####[address] [address] ALT/SGPT 19 U/L Normal 10 - 40 [facility] Comment on above: Performed By: #### 2 84146 ####[facility],[address] [place] [address] Anion gap 12 mmol/L Normal 10 - 20 [facility] Comment on above: Performed By: #### 2 84555 ####[facility],[address] [place] [address] AST/SGOT 16 U/L Normal 13 - 39 [facility] Comment on above: Performed By: #### 2 86738 ####[facility],[address] [place] [address] B/C RATIO 15 ratio Normal 0 - 30 [facility] Comment on above: Performed By: #### 2 77431 ####[facility],[address] [place] [address] Bilirubin (total) 1.0 mg/dL Normal 0.0 - 1.5 [facility] Comment on above: Performed By: #### 2 00616 ####[facility],[address] [place] [address] Calcium 9.5 mg/dL Normal 8.6 - 10.2 [facility] Comment on above: Performed By: #### 2 79686 ####[facility],[address] [place] [address] Chloride 103 mmol/L Normal 98 - 107 [facility] Comment on above: Performed By: #### 2 55318 ####[facility],[address] [place] [address] CO2 26.2 mmol/L Normal 21.0 - 31.0 [facility] Comment on above: Performed By: #### 2 85724 ####[facility],[address] [place] [address] Creatinine 1.1 mg/dL Normal 0.7 - 1.3 [facility] Comment on above: Performed By: #### 2 23095 ####[facility],[address] [place] [address] eGFR (non-black) Normal [facility] Comment on above: Result Comment: COMP REHENSIVE METABOLIC PANEL Performed By: #### 2 28424 ####[facility],[address] [place] [address] eGFR (non-black) mL/min/{1.73_m2} Normal 60 - 999 [facility] Comment on above: Performed By: #### 2 06340 ####[facility],[address] [place] [address] Result Comment: ACCO RDING TO THE NATIONAL KIDNEY DISEASE EDUCATION PROGRAM(NKDE), A NORMAL eGFRIS A VALUE GREATER THAN OR EQUAL TO 60 ML/MIN/1.73 SQ METERS.CHRONIC KIDNEY DISEASE: <60mL/MIN/1.73 SQ METERSKIDNEY FAILURE: <15mL/MIN/1.73 SQ METERSTHIS TEST SHOULD ONLY BE USED FOR PATIENTS 18 YEARS OF AGE AND OLDER. Globulin 2.3 g/dL Normal 1.5 - 3.8 [facility] Comment on above: Performed By: #### 2 90380 ####[facility],[address] [place], [place] [address] Glucose mass conc 109 mg/dL High 74 - 106 [facility] Comment on above: Performed By: #### 2 54460 ####[facility],[address] [place], [place] [address] Potassium molar conc 3.5 mmol/L Normal 3.5 - 5.1 [facility] Comment on above: Performed By: #### 2 40618 ####[facility],[address] [place] [address] Protein 6.7 g/dL Normal 6.4 - 8.3 [facility] Comment on above: Performed By: #### 2 84756 ####[facility],[address] [place] [address] Sodium 138 mmol/L Normal 136 - 145 [facility] Comment on above: Performed By: #### 2 41054 ####[facility],[address] [place], [place] [address] Urea nitrogen 16 mg/dL Normal 6 - 20 [facility] Comment on above: Performed By: #### 2 54648 ####[facility],[address] [place] [address] D-DIMER, QUANTITATIVEon 10-17 D-DIMER QUANT 187 ng/ml Normal 0 - 230 [facility] Comment on above: Performed By: #### 2 15788 ####[facility],[address] [place] [address] D-DIMER, QUANTITATIVE Normal [facility] Comment on above: Result Comment: LNI T D-DIMER Performed By: #### 2 19101 ####[facility],[address] [place], [place] [address] MAGNESIUMon 10-30-2017 Magnesium 2.0 mg/dL Normal 1.6 - 2.6 [facility] Comment on above: Performed By: #### 2 32920 ####[facility],[address] [place] [address] PROTHROMBIN TIME AND INRon 0 10-30-2017 INR Coag RelTime (Bld) Normal [facility] Comment on above: Result Comment: PROT HROMBIN TIME AND INR Performed By: #### 2 52765 ####[facility],[address] [place] [address] INR Coag RelTime (PPP) 1.1 {INR} Normal 0.8 - 1.2 [facility] Comment on above: Result Comment: T [...] MECHANICAL HEART VALVES Performed By: #### 2 79615 ####[facility],[address] [place], [place] [address] PT-COUMADIN 12.1 sec Normal [facility] Comment on above: Performed By: #### 2 77054 ####[address] [address] TROPONINon 10-30-2017 Troponin I.cardiac mass conc ng/mL Normal 0.00 - 0.05 [facility] Comment on above: Result Comment: Elev [...] as heterophile antibodies). Performed By: #### 2 19274 ####[address] [address] Troponin I.cardiac mass conc 0.01 ng/mL Normal 0.00 - 0.05 [facility] Comment on above: Result Comment: Elev [...] as heterophile antibodies). Performed By: #### 2 26502 ####[address] [address] Lab Report: Lipid Profileon 07-18-2017 Cholesterol 88 mg/dL Invalid Interpretation Code 200 [employer] Work Phone: HDL Cholesterol 30 mg/dL Low [employer] Work Phone: LDL Cholesterol 30 mg/dL Invalid Interpretation Code 0-130 [employer] Work Phone: Triglyceride 138 mg/dL Invalid Interpretation Code [facility] Work Phone: [phone] very low density lipoproteins 28 mg/dL Invalid Interpretation Code 5-40 [employer] Phone: [phone] Lab Report: Liver Profileon 07-18-2017 Alanine aminotransferase (ALT) 32 U/L Invalid Interpretation Code 16-61 [employer] Work Phone: [phone] Albumin 3.4 g/dL Invalid Interpretation Code 3.2-5.0 [employer] Work Phone: [phone] Alkaline phosphatase (ALP) 59 U/L Invalid Interpretation Code 45-117 [employer] Work Phone: [phone] Aspartate aminotransferase (AST) 27 U/L Invalid Interpretation Code 15-37 [employer] Phone: [phone] Bilirubin (direct) 0.16 mg/dL Invalid Interpretation Code 0.00-0.30 [employer] Phone: [phone] Bilirubin (total) 0.70 mg/dL Invalid Interpretation Code 0.20-1.00 [employer] Phone: [phone] Globulin 3.3 g/dL Invalid Interpretation Code 2.2-4.2 [employer] Phone: [phone] Protein 6.7 g/dL Invalid Interpretation Code 6.4-8.2 [employer] Phone: [phone] Office Visiton 12-14-2016 Documentation of current medications (procedure) Done Invalid Interpretation Code [employer] Phone: [phone] Fall risk assessment No Invalid Interpretation Code [employer] Phone: [phone] Protein mass conc Done [employer] Phone: [phone] Replaced Document: [employer] E CG Observationson 08-17-2016 EKG QRS axis -44 deg [employer] Phone: [phone] electrocardiogram interpretation Sinus Rhythm -Left axis -anterior fascicular block. ABNORMAL Invalid Interpretation Code [employer] Phone: [phone] GE use only - for [employer] import when terms are not otherwise specified 395 ms Invalid Interpretation Code [facility] Phone: [phone] Interpretation Sinus Rhythm -Left a xis -anterior fascicular block. ABNORMAL [employer] Work Phone: [phone] P Hazen 53 deg [facility] Work Phone: [phone] P wave axis, electrocardiogram 53 deg Invalid Interpretation Code [employer] Work Phone: [phone] [place] Interval 218 ms [facility] Work Phone: [phone] [place] interval, electrocardiogram 218 ms Invalid Interpretation Code [employer] Work Phone: [phone] Pulse (Heart Rate) 80 /min Invalid Interpretation Code [employer] Work Phone: [phone] QRS axis, electrocardiogram -44 deg Invalid Interpretation Code [employer] Work Phone: [phone] QRS Duration 93 ms [employer] Work Phone: [phone] QRS duration, electrocardiogram 93 ms Invalid Interpretation Code [employer] Work Phone: [phone] QT Interval new path ms [employer] Work Phone: [phone] QT interval, electrocardiogram new path ms Invalid Interpretation Code [employer] Work Phone: [phone] QTc Chou 395 ms [employer] Work Phone: [phone] T Hazen 30 deg [employer] Work Phone: [phone] T wave axis, electrocardiogram 30 deg Invalid Interpretation Code [employer] Work Phone: [phone] Clinical Lists Update: Prelo clinical manager 01-14-2016 Left ventricular Ejection fraction 65 % Invalid Interpretation Code [employer] Work Phone: [phone] Office Visiton 01-04-2016 Dietary management education, guidance, and counseling (procedure) yes Invalid Interpretation Code [employer] Work Phone: [phone] Tobacco smoking status NHIS Tobacco smoking status NHIS Invalid Interpretation Code [employer] Work Phone: [phone] Tobacco smoking status NHIS Former smoker [employer] Work Phone: [phone] Lab Report: Lipid Profileon 04-18-2015 Cholesterol in HDL mass conc 31 mg/dL Low [employer] Work Phone: [phone] Cholesterol in LDL mass conc 27 mg/dL 0-130 [employer] Work Phone: [phone] Cholesterol mass conc 98 mg/dL [address] [facility] Work Phone: [phone] Lipoprotein.pre-beta mass conc 40 mg/dL 5-40 [facility] Work Phone: [phone] Triglyceride mass conc 200 mg/dL High [facility] Work Phone: [phone] Lab Report: Liver Profileon 04-18-2015 Albumin mass conc 4.1 g/dL 3.4-5.0 [facility] Work Phone: [phone] ALP enzyme act/vol (Bld) 85 U/L 50-136 [facility] Work Phone: [phone] ALT enzyme act/vol 39 U/L 12-78 [facility] Work Phone: [phone] AST enzyme act/vol 23 U/L 15-37 [facility] Work Phone: [phone] Bilirubin mass conc 1.20 mg/dL High 0.20-1.00 [facility] Work Phone: [phone] Bilirubin.direct mass conc 0.25 mg/dL 0.00-0.30 [facility] Work Phone: [phone] Globulin mass conc (S) 3.0 g/dL 2.3-3.5 [facility] Work Phone: [phone] Protein mass conc 7.1 g/dL 6.4-8.2 [facility] Work Phone: [phone] Lab Report: PSA,Total- Diagn osticon 04-18-2015 prostate specific antigen, total 2.47 ng/mL Invalid Interpretation Code 0.0-4.0 [facility] Work Phone: [phone] Protein mass conc 2.47 ng/mL 0.0-4.0 [facility] Work Phone: [phone] Lab Report: T4 Total, Thyrox inon 04-18-2015 T4 mass conc 9.6 ug/dL Invalid Interpretation Code 4.5-12.1 [facility] Work Phone: [phone]) Lab Report: Thyroid Stim Hor madeleine (TSH)on 04-18-2015 Thyrotropin Qn 1.26 u[iU]/mL Invalid Interpretation Code 0.358-3.74 [facility] Work Phone: [phone] Lab Report: BNP,B-Type NATRI URETIC PEPTIDEon 01-08-2015 Natriuretic peptide B mass conc (Bld) 17.5 pg/mL Invalid Interpretation Code 0-100 [facility] Work Phone: [phone] Office Visiton 09-22-2014 cardiac risk group C Invalid Interpretation Code [employer] Work Phone: [phone] General cardiovascular disease 10Y risk [#] [place] N/A Invalid Interpretation Code [employer] Work Phone: [phone] Clinical Lists Update: Prelo clinical manager 03-29-2014 Cholesterol in LDL/Cholesterol in HDL mass ratio 1.41 Invalid Interpretation Code [employer] Work Phone: [phone] Cholesterol.total/Cho lesterol in HDL mass ratio 3.33 {ratio} Invalid Interpretation Code [facility] Work Phone: [phone] Lab Report: BMPon 12-04-2013 Anion gap 6 mmol/L Normal 5-15 [facility] Work Phone: [phone] Anion gap molar conc 6 mmol/L Normal 5-[address] [facility] Work Phone: [phone] Calcium mass conc 9.1 mg/dL Normal 8.5-10.1 [facility] Work Phone: [phone] Chloride molar conc 105 mmol/L Normal 98-107 [facility] Work Phone: [phone] CO2 29.0 mmol/L Normal 21.0-32.0 [facility] Work Phone: [phone] CO2 ppres (BldV) 29.0 mmol/L Normal 21.0-32.0 [facility] Work Phone: [phone] Creatinine mass conc 1.2 mg/dL Normal 0.8-1.[address] [employer] [facility] [address] [facility] Work Phone: [phone] eGFR (non-black) 81 mL/min/{1.73_m2} Normal >60 [facility] Work Phone: [phone] GFR/1.73 sq M predicted among non-blacks MDRD vol rate/area (S/P/Bld) 67 mL/min/{1.73_m2} Normal >60 [facility] Work Phone: [phone] GFRAA 81 mL/min Normal >60 [employer] Work Phone: [phone] Glucose 89 mg/dL Normal 70-110 [employer] Work Phone: [phone] Glucose mass conc 89 mg/dL Normal 70-110 [employer] Work Phone: [phone] Potassium molar conc 4.2 mmol/L Normal 3.5-5.1 [facility] Work Phone: [phone] Sodium molar conc 140 mmol/L Normal 136-145 [employer] Work Phone: [phone] Urea nitrogen mass conc 17 mg/dL Normal 7-18 [employer] Work Phone: [phone] Urea nitrogen/Creatinine mass ratio 14.2 RATIO Normal 10-20 [employer] Work Phone: [phone] Lab Report: CBCon 12-04-2013 Erythrocytes (RBC) 5.61 10*6/uL Normal 4.6-6.2 [facility] Work Phone: [phone] Hematocrit (HCT) 47.4 % Normal 40-54 [employer] Work Phone: [phone] Hematocrit Volume Fraction (Bld) 47.4 % Normal 40-54 [facility] Work Phone: [phone] Hemoglobin mass conc (Bld) 16.7 g/dL High 13.0-16.5 [employer] Work Phone: [phone] MCH 29.8 pg Normal 27.0-32.0 [employer] Work Phone: [phone] MCH Entitic mass (RBC) 29.8 pg Normal 27.0-32.0 [employer] Work Phone: [phone] MCHC 35.2 G/GL Normal 32-36 [employer] Work Phone: [phone] MCHC mass conc (RBC) 35.2 G/GL Normal 32-36 [facility] Work Phone: [phone] MCV 84.5 fL Normal 80-94 [employer] Work Phone: [phone] MCV Entitic volume (RBC) 84.5 fL Normal 80-94 [facility] Work Phone: [phone] Platelet mean volume Entitic volume (Bld) 11.5 fL Normal 6.2-12.0 [facility] Work Phone: [phone] Platelets 123 10*3/mm3 Low 150-450 [facility] Work Phone: [phone] Platelets #/vol (Bld) 123 10*3/mm3 Low 150-450 [facility] Work Phone: [phone] PMV by Stephen-Kurt 11.5 fL Normal 6.2-12.0 [facility] Work Phone: [phone] RBC #/vol (Bld) 5.61 10*6/uL Normal 4.6-6.2 [employer] Work Phone: [phone] WBC #/vol (Bld) 6.4 10*3/uL Normal 4.4-11.0 [employer] Work Phone: [phone] WBC (Leukocytes) 6.4 10*3/uL Normal 4.4-11.0 [employer] Work Phone: [phone] Lab Report: PTon 12-04-2013 INR Coag RelTime (PPP) 1.6 {INR} Normal [employer] Work Phone: [phone] INR in blood by coagulation 1.6 {INR} Normal [employer] Work Phone: [phone] prothrombin time, actual/normal, ratio 18.2 SECONDS High 11.9-14.4 [employer] Work Phone: [phone] PTP 18.2 SECONDS High 11.9-14.4 [employer] Work Phone: [phone] Replaced Document: Alexa ROCA Observationson 10-30-2013 Pulse (Heart Rate) 396 ms Invalid Interpretation Code [employer] Work Phone: [phone] Lab Report: Ordered by Dr. Nik alfaro 09-20-2012 Erythrocyte distribution width Ratio (RBC) 13.4 % [employer] Work Phone: [phone] MCHC 35.5 % Invalid Interpretation Code [facility] Work Phone: [phone] MCHC mass conc (RBC) 35.5 % [facility] Work Phone: [phone] RDW-CA 13.4 % Invalid Interpretation Code [facility] Work Phone: [phone] Lab Report: PTTon 09-03-2012 aPTT Coag time (Bld) 28.8 s Normal 24.1-36.[address] [address] [facility] Work Phone: [phone] Office Visiton 07-18-2012 Alcoholism counseling (procedure) no Invalid Interpretation Code [facility] Work Phone: [phone] Protein mass conc no [facility] Work Phone: [phone] Vital Signs Date Time Vital Sign Value Performing Clinician Facility 02-19-2025 17:00-0400 Diastolic blood pressure 78 mm[Hg] Dr. Chloe Cheema MD Work Phone: [facility] 02-19-2025 17:00-0400 Heart rate 104 /min Dr. Chloe Cheema MD Work Phone: 4(092)506-278334 [place] [address] 02-19-2025 17:00-0400 Respiratory rate 18 /min Dr. Chloe Cheema MD Work Phone: 6(968)656-986434 [place] [address] 02-19-2025 17:00-0400 SaO2% (BldA) [Mass fraction] 98 % Dr. Chloe Cheema MD Work Phone: [facility] 02-19-2025 17:00-0400 Systolic blood pressure 148 mm[Hg] Dr. Chloe Cheema MD Work Phone: 7(543)471-560134 [place] [address] 02-19-2025 16:04-0400 Body temperature 98 [degF] Dr. Chloe Cheema MD Work Phone: 6(991)159-879234 [place] [address] 02-19-2025 14:15-0400 Body height 195.[address] Chloe Cheema MD Work Phone: [facility] 02-19-2025 14:15-0400 Body mass index (BMI) [Ratio] 38.1 kg/m2 Dr. Chloe Cheema MD Work Phone: [facility] 02-19-2025 14:15-0400 Body weight 145.[address] Chloe Cheema MD Work Phone: [facility] 02-14-2025 11:01-0400 Body mass index (BMI) [Ratio] 38.72 kg/m2 Chloe Cheema MD Work Phone: [facility] 02-14-2025 11:01-0400 Body weight 144.24 kg Chloe Cheema MD Work Phone: [facility] 02-14-2025 11:01-0400 Diastolic blood pressure 82 mm[Hg] Chloe Cheema MD Work Phone: [facility] 02-14-2025 11:01-0400 Heart rate 81 /min Chloe Cheema MD Work Phone: [facility] 02-14-2025 11:01-0400 SaO2% (BldA) [Mass fraction] 100 % Chloe Cheema MD Work Phone: [facility] 02-14-2025 11:01-0400 Systolic blood pressure 138 mm[Hg] Chloe Cheema MD Work Phone: [facility] 02-01-2025 14:01-0400 Body temperature 97.6 [degF] Dr. Chloe Cheema MD Work Phone: [facility] 02-01-2025 14:01-0400 Diastolic blood pressure 85 mm[Hg] Dr. Chloe Cheema MD Work Phone: [facility] 02-01-2025 14:01-0400 Heart rate 72 /min Dr. Chloe Cheema MD Work Phone: [facility] 02-01-2025 14:01-0400 Respiratory rate 18 /min Dr. Chloe Cheema MD Work Phone: [facility] 02-01-2025 14:01-0400 SaO2% (BldA) [Mass fraction] 98 % Dr. Chloe Cheema MD Work Phone: [facility] 02-01-2025 14:01-0400 Systolic blood pressure 161 mm[Hg] Dr. Chloe Cheema MD Work Phone: 1(205)690-567710 [place] [address] 02-01-2025 06:00-0400 Body mass index (BMI) [Ratio] 38.4 kg/m2 Dr. Chloe Cheema MD Work Phone: 5(974)837-125710 [place] [address] 02-01-2025 06:00-0400 Body weight 143.[address] Chloe Cheema MD Work Phone: 7(531)625-395510 [place] [address] 02-01-2025 02:40-0400 Inhaled oxygen concentration 21 % Dr. Chloe Cheema MD Work Phone: 7(509)058-826810 [place] [address] 01-30-2025 23:38-0400 Body height 193.[address] Chloe Cheema MD Work Phone: 5(708)075-542510 [place] [address] 01-30-2025 23:00-0400 Diastolic blood pressure 69 mm[Hg] Dr. Chloe Cheema MD Work Phone: 8(756)874-677310 [place] [address] 01-30-2025 23:00-0400 Heart rate 59 /min Dr. Chloe Cheema MD Work Phone: 6(424)538-376410 [place] [address] 01-30-2025 23:00-0400 Respiratory rate 16 /min Dr. Chloe Cheema MD Work Phone: 1(960)087-795410 [place] [address] 01-30-2025 23:00-0400 SaO2% (BldA) [Mass fraction] 96 % Dr. Chloe Cheema MD Work Phone: 1(781)315-644810 [place] [address] 01-30-2025 23:00-0400 Systolic blood pressure 144 mm[Hg] Dr. Chloe Cheema MD Work Phone: 4(963)990-847710 [place] [address] 01-30-2025 19:56-0400 Body temperature 98.6 [degF] Dr. Chloe Cheema MD Work Phone: 2(818)112-488310 [place] [address] 01-30-2025 15:48-0400 Body mass index (BMI) [Ratio] 39.2 kg/m2 Dr. Chloe Cheema MD Work Phone: 3(776)929-704410 [place] [address] 01-30-2025 15:48-0400 Body weight 149.[address] Chloe Cheema MD Work Phone: [facility] 01-30-2025 15:46-0400 Body height 195.[address] Chloe Cheema MD Work Phone: [facility] 12-31-2024 08:48-0400 Body height 193 cm Yesica Meliton [employer]PL[employer] FLIGHT ATTENDANT.CENTER MEDICAL DIRECTOR Work Phone: [facility] 12-31-2024 08:48-0400 Body mass index (BMI) [Ratio] 39.58 kg/m2 Yesica Meliton [employer] ATTEND[employer].CENTER MEDICAL DIRECTOR Work Phone: [facility] 12-31-2024 08:48-0400 Body temperature 97.59 [degF] Yesica Meliton [employer]PL[employer] FLIGHT ATTENDANT.CENTER MEDICAL DIRECTOR Work Phone: [facility] 12-31-2024 08:48-0400 Body weight 147.42 kg Yesica Meliton [employer]PL[employer] FLIGHT ATTENDANT.CENTER MEDICAL DIRECTOR Work Phone: [facility] 12-31-2024 08:48-0400 Diastolic blood pressure 83 mm[Hg] Yesica Meliton [employer]PL[employer] FLIGHT ATTENDANT.CENTER MEDICAL DIRECTOR Work Phone: [facility] 12-31-2024 08:48-0400 Heart rate 79 /min Yesica Meliton [employer]PL[employer] FLIGHT ATTENDANT.CENTER MEDICAL DIRECTOR Work Phone: [facility] 12-31-2024 08:48-0400 SaO2% (BldA) [Mass fraction] 99 % Yesica Meliton [employer]PL[employer] FLIGHT ATTENDANT.CENTER MEDICAL DIRECTOR Work Phone: [facility] 12-31-2024 08:48-0400 Systolic blood pressure 141 mm[Hg] Yesica Meliton [employer]PL[employer] FLIGHT ATTENDANT.CENTER MEDICAL DIRECTOR Work Phone: [facility] 12-24-2024 13:56-0400 Body mass index (BMI) [Ratio] 38.54 kg/m2 Chloe Cheema MD Work Phone: [facility] 12-24-2024 13:56-0400 Body weight 147.42 kg Chloe Chemea MD Work Phone: [facility] 12-24-2024 13:56-0400 Diastolic blood pressure 72 mm[Hg] Chloe Cheema MD Work Phone: [facility] 12-24-2024 13:56-0400 Heart rate 86 /min Chloe Cheema MD Work Phone: [facility] 12-24-2024 13:56-0400 SaO2% (BldA) [Mass fraction] 97 % Chloe Cheema MD Work Phone: [facility] 12-24-2024 13:56-0400 Systolic blood pressure 140 mm[Hg] Chloe Cheema MD Work Phone: [facility] 11-28-2024 10:11-0400 Body height 195.[address] Chloe Cheema MD Work Phone: [facility] 11-28-2024 10:11-0400 Body mass index (BMI) [Ratio] 39.4 kg/m2 Dr. Chloe Cheema MD Work Phone: [facility] 11-28-2024 10:11-0400 Body weight 151.[address] Chloe Cheema MD Work Phone: 1(986)237-626734 [place] [address] 11-28-2024 10:11-0400 Diastolic blood pressure 91 mm[Hg] Dr. Chloe Cheema MD Work Phone: [facility] 11-28-2024 10:11-0400 Heart rate 69 /min Dr. Chloe Cheema MD Work Phone: [facility] 11-28-2024 10:11-0400 Respiratory rate 18 /min Dr. Chloe Cheema MD Work Phone: [facility] 11-28-2024 10:11-0400 Systolic blood pressure 167 mm[Hg] Dr. Chloe Cheema MD Work Phone: [facility] 11-20-2024 14:20-0400 Body temperature 97.9 [degF] Dr. Chloe Cheema MD Work Phone: [facility] 11-20-2024 14:20-0400 Diastolic blood pressure 88 mm[Hg] Dr. Chloe Cheema MD Work Phone: 3(137)859-357434 [place] [address] 11-20-2024 14:20-0400 Heart rate 75 /min Dr. Chloe Cheema MD Work Phone: 5(169)720-115310 [place] [address] 11-20-2024 14:20-0400 Respiratory rate 16 /min Dr. Chloe Cheema MD Work Phone: 3(110)929-017710 [place] [address] 11-20-2024 14:20-0400 SaO2% (BldA) [Mass fraction] 97 % Dr. Chloe Cheema MD Work Phone: 6(764)146-283510 [place] [address] 11-20-2024 14:20-0400 Systolic blood pressure 146 mm[Hg] Dr. Chloe Cheema MD Work Phone: 5(421)651-961210 [place] [address] 11-20-2024 10:26-0400 Body height 195.[address] Chloe Cheema MD Work Phone: 0(719)298-084010 [place] [address] 11-20-2024 10:26-0400 Body mass index (BMI) [Ratio] 40.1 kg/m2 Dr. Chloe Cheema MD Work Phone: 7(637)310-798910 [place] [address] 11-20-2024 10:26-0400 Body weight 153.[address] Chloe Cheema MD Work Phone: 9(006)665-884910 [place] [address] 11-18-2024 11:23-0400 Body temperature 99.19 [degF] Susan Kerr [employer]PL[employer] FLIGHT ATTENDANT.CENTER MEDICAL DIRECTOR Work Phone: 5(472)428-061730 [place] [address] 11-18-2024 11:23-0400 Diastolic blood pressure 80 mm[Hg] Susan Kerr [employer]PL[employer] FLIGHT ATTENDANT.CENTER MEDICAL DIRECTOR Work Phone: 1(634)334-694230 [place] [address] 11-18-2024 11:23-0400 Heart rate 72 /min Susan Haagen [employer] FLIGHT ATTENDANT.CENTER MEDICAL DIRECTOR Work Phone: [facility] 11-18-2024 11:23-0400 Respiratory rate 16 /min Susan Kerr [employer] FLIGHT ATTENDANT.CENTER MEDICAL DIRECTOR Work Phone: [facility] 11-18-2024 11:23-0400 SaO2% (BldA) [Mass fraction] 95 % Susan Kerr [employer]PL[employer] FLIGHT ATTENDANT.CENTER MEDICAL DIRECTOR Work Phone: [facility] 11-18-2024 11:23-0400 Systolic blood pressure 158 mm[Hg] Susan Kerr [employer]PL[employer] FLIGHT ATTENDANT.CENTER MEDICAL DIRECTOR Work Phone: [facility] 10-28-2024 13:21-0400 Body temperature 97 [degF] Dr. Chloe Cheema MD Work Phone: [facility] 10-28-2024 13:21-0400 Diastolic blood pressure 83 mm[Hg] Dr. Chloe Cheema MD Work Phone: 7(903)317-259134 [place] [address] 10-28-2024 13:21-0400 Heart rate 66 /min Dr. Chloe Cheema MD Work Phone: 5(068)471-235534 [place] [address] 10-28-2024 13:21-0400 Respiratory rate 24 /min Dr. Chloe Cheema MD Work Phone: 0(808)198-526634 [place] [address] 10-28-2024 13:21-0400 SaO2% (BldA) [Mass fraction] 97 % Dr. Chloe Cheema MD Work Phone: [facility] 10-28-2024 13:21-0400 Systolic blood pressure 156 mm[Hg] Dr. Chloe Cheema MD Work Phone: [facility] 10-28-2024 09:36-0400 Body height 195.[address] Chloe Cheema MD Work Phone: [facility] 10-28-2024 09:36-0400 Body mass index (BMI) [Ratio] 40.4 kg/m2 Dr. Chloe Cheema MD Work Phone: [facility] 10-28-2024 09:36-0400 Body weight 154.[address] Chloe Cheema MD Work Phone: [facility] 10-21-2024 09:24-0400 Diastolic blood pressure 70 mm[Hg] Chloe Cheema MD Work Phone: [facility] 10-21-2024 09:24-0400 Systolic blood pressure 138 mm[Hg] Chloe Cheema MD Work Phone: [facility] 10-21-2024 08:41-0400 Body height 195.6 cm Chloe Cheema MD Work Phone: [facility] 10-21-2024 08:41-0400 Body mass index (BMI) [Ratio] 39.73 kg/m2 Chloe Cheema MD Work Phone: [facility] 10-21-2024 08:41-0400 Body weight 151.96 kg Chloe Cheema MD Work Phone: [facility] 10-21-2024 08:41-0400 Heart rate 78 /min Chloe Cheema MD Work Phone: [facility] 10-21-2024 08:41-0400 SaO2% (BldA) [Mass fraction] 98 % Chloe Cheema MD Work Phone: [facility] 09-23-2024 09:40-0400 Body mass index (BMI) [Ratio] 39.73 kg/m2 Chloe Cheema MD Work Phone: [facility] 09-23-2024 09:40-0400 Body weight 151.96 kg Chloe Cheema MD Work Phone: [facility] 09-23-2024 09:40-0400 Diastolic blood pressure 78 mm[Hg] Chloe Cheema MD Work Phone: [facility] 09-23-2024 09:40-0400 Heart rate 82 /min Chloe Cheema MD Work Phone: [facility] 09-23-2024 09:40-0400 SaO2% (BldA) [Mass fraction] 97 % Chloe Cheema MD Work Phone: [facility] 09-23-2024 09:40-0400 Systolic blood pressure 170 mm[Hg] Chloe Cheema MD Work Phone: [facility] 09-11-2024 08:25-0400 Body height 195.6 cm Chloe Cheema MD Work Phone: [facility] 09-11-2024 08:25-0400 Body mass index (BMI) [Ratio] 39.73 kg/m2 Chloe Cheema MD Work Phone: [facility] 09-11-2024 08:25-0400 Body weight 151.96 kg Chloe Cheema MD Work Phone: [facility] 09-11-2024 08:25-0400 Diastolic blood pressure 70 mm[Hg] Chloe Cheema MD Work Phone: [facility] 09-11-2024 08:25-0400 Heart rate 77 /min Chloe Cheema MD Work Phone: [facility] 09-11-2024 08:25-0400 SaO2% (BldA) [Mass fraction] 99 % Chloe Cheema MD Work Phone: [facility] 09-11-2024 08:25-0400 Systolic blood pressure 148 mm[Hg] Chloe Cheema MD Work Phone: [facility] 08-16-2024 10:33-0500 Body mass index (BMI) [Ratio] 39.1 kg/m2 Dr. Chloe Cheema MD Work Phone: [facility] 08-16-2024 10:33-0500 Body weight 149.[address] Chloe Cheema MD Work Phone: [facility] 08-16-2024 10:33-0500 Diastolic blood pressure 84 mm[Hg] Dr. Chloe Cheema MD Work Phone: [facility] 08-16-2024 10:33-0500 Heart rate 72 /min Dr. Chloe Cheema MD Work Phone: [facility] 08-16-2024 10:33-0500 Respiratory rate 16 /min Dr. Chloe Cheema MD Work Phone: [facility] 08-16-2024 10:33-0500 Systolic blood pressure 148 mm[Hg] Dr. Chloe Cheema MD Work Phone: [facility] 07-08-2024 09:34-0500 Diastolic blood pressure 80 mm[Hg] Chloe Cheema MD Work Phone: [facility] 07-08-2024 09:34-0500 Systolic blood pressure 136 mm[Hg] Chloe Cheema MD Work Phone: [facility] 07-08-2024 09:06-0500 Body height 195.6 cm Chloe Cheema MD Work Phone: [facility] 07-08-2024 09:06-0500 Body mass index (BMI) [Ratio] 39.13 kg/m2 Chloe Cheema MD Work Phone: [facility] 07-08-2024 09:06-0500 Body weight 149.69 kg Chloe Cheema MD Work Phone: [facility] 07-08-2024 09:06-0500 Heart rate 87 /min Chloe Cheema MD Work Phone: [facility] 06-24-2024 09:03-0500 Body mass index (BMI) [Ratio] 39.13 kg/m2 Chloe Cheema MD Work Phone: [facility] 06-24-2024 09:03-0500 Body temperature 97.2 [degF] Chloe Cheema MD Work Phone: [facility] 06-24-2024 09:03-0500 Body weight 149.69 kg Chloe Cheema MD Work Phone: [facility] 06-24-2024 09:03-0500 Diastolic blood pressure 72 mm[Hg] Chloe Cheema MD Work Phone: [facility] 06-24-2024 09:03-0500 Heart rate 88 /min Chloe Cheema MD Work Phone: [facility] 06-24-2024 09:03-0500 SaO2% (BldA) [Mass fraction] 98 % Chloe Cheema MD Work Phone: [facility] 06-24-2024 09:03-0500 Systolic blood pressure 140 mm[Hg] Chloe Cheema MD Work Phone: [facility] 06-17-2024 14:22-0500 Body mass index (BMI) [Ratio] 39.73 kg/m2 Chloe Cheema MD Work Phone: [facility] 06-17-2024 14:22-0500 Body temperature 100.09 [degF] Chloe Cheema MD Work Phone: [facility] 06-17-2024 14:22-0500 Body weight 151.96 kg Chloe Cheema MD Work Phone: [facility] 06-17-2024 14:22-0500 Diastolic blood pressure 92 mm[Hg] Chloe Cheema MD Work Phone: [facility] 06-17-2024 14:22-0500 Heart rate 79 /min Chloe Cheema MD Work Phone: [facility] 06-17-2024 14:22-0500 SaO2% (BldA) [Mass fraction] 99 % Chloe Cheema MD Work Phone: [facility] 06-17-2024 14:22-0500 Systolic blood pressure 152 mm[Hg] Chloe Cheema MD Work Phone: [facility] 06-13-2024 15:51-0500 Body mass index (BMI) [Ratio] 40.02 kg/m2 Carolann Lance [employer] FLIGHT ATTEND[employer].CENTER MEDICAL DIRECTOR Work Phone: [facility] 06-13-2024 15:51-0500 Body temperature 97.7 [degF] Carolann Lance [employer]PL[employer] FLIGHT ATTENDANT.CENTER MEDICAL DIRECTOR Work Phone: [facility] 06-13-2024 15:51-0500 Body weight 153.1 kg Carolann Lance [employer]PLANE FLIGHT ATTENDANT.CENTER MEDICAL DIRECTOR Work Phone: [facility] 06-13-2024 15:51-0500 Diastolic blood pressure 74 mm[Hg] Carolann Lance AIRPLANE FLIGHT ATTENDANT.CENTER MEDICAL DIRECTOR Work Phone: [facility] 06-13-2024 15:51-0500 Heart rate 90 /min Carolann Lance [employer]PLANE FLIGHT ATTENDANT.CENTER MEDICAL DIRECTOR Work Phone: [facility] 06-13-2024 15:51-0500 Respiratory rate 16 /min Carolann Lance AIRPLANE FLIGHT ATTENDANT.CENTER MEDICAL DIRECTOR Work Phone: [facility] 06-13-2024 15:51-0500 SaO2% (BldA) [Mass fraction] 97 % Carolann Lance [employer]PLANE FLIGHT ATTENDANT.CENTER MEDICAL DIRECTOR Work Phone: [facility] 06-13-2024 15:51-0500 Systolic blood pressure 136 mm[Hg] Carolann Lance AIRPLANE FLIGHT ATTENDANT.CENTER MEDICAL DIRECTOR Work Phone: [facility] 04-25-2024 13:18-0500 Body mass index (BMI) [Ratio] 39.48 kg/m2 Lisa Podlogar AIRPLANE FLIGHT ATTENDANT.CENTER MEDICAL DIRECTOR Work Phone: [facility] 04-25-2024 13:18-0500 Body weight 151 kg Lisa Podlogar [employer]PLANE FLIGHT ATTENDANT.CENTER MEDICAL DIRECTOR Work Phone: [facility] 04-25-2024 13:18-0500 Diastolic blood pressure 78 mm[Hg] Lisa Podlogar [employer]PLANE FLIGHT ATTENDANT.CENTER MEDICAL DIRECTOR Work Phone: [facility] 04-25-2024 13:18-0500 Heart rate 78 /min Lisa Podlogar [employer]PLANE FLIGHT ATTENDANT.CENTER MEDICAL DIRECTOR Work Phone: [facility] 04-25-2024 13:18-0500 SaO2% (BldA) [Mass fraction] 97 % Lisa Podlogar [employer]PLANE FLIGHT ATTENDANT.CENTER MEDICAL DIRECTOR Work Phone: [facility] 04-25-2024 13:18-0500 Systolic blood pressure 140 mm[Hg] Lisa Podlogar AIRPLANE FLIGHT ATTENDANT.CENTER MEDICAL DIRECTOR Work Phone: [facility] 04-10-2024 11:23-0400 Body mass index (BMI) [Ratio] 38.99 kg/m2 Rojas Dominguez MD Work Phone: [facility] 04-10-2024 11:23-0400 Body temperature 97.7 [degF] Rojas Dominguez MD Work Phone: [facility] 04-10-2024 11:23-0400 Body weight 149.14 kg Rojas Dominguez MD Work Phone: [facility] 04-10-2024 11:23-0400 Diastolic blood pressure 72 mm[Hg] Rojas Dominguez MD Work Phone: [facility] 04-10-2024 11:23-0400 Heart rate 73 /min Rojas Dominguez MD Work Phone: [facility] 04-10-2024 11:23-0400 Respiratory rate 18 /min Rojas Dominguez MD Work Phone: [facility] 04-10-2024 11:23-0400 SaO2% (BldA) [Mass fraction] 98 % Rojas Dominguez MD Work Phone: [facility] 04-10-2024 11:23-0400 Systolic blood pressure 130 mm[Hg] Rojas Dominguez MD Work Phone: [facility] 03-13-2024 09:03-0400 Body mass index (BMI) [Ratio] 39.01 kg/m2 Chloe Cheema MD Work Phone: [facility] 03-13-2024 09:03-0400 Body weight 149.23 kg Chloe Cheema MD Work Phone: [facility] 03-13-2024 09:03-0400 Diastolic blood pressure 72 mm[Hg] Chloe Cheema MD Work Phone: [facility] 03-13-2024 09:03-0400 Heart rate 71 /min Chloe Cheema MD Work Phone: [facility] 03-13-2024 09:03-0400 SaO2% (BldA) [Mass fraction] 98 % Chloe Cheema MD Work Phone: [facility] 03-13-2024 09:03-0400 Systolic blood pressure 134 mm[Hg] Chloe Cheema MD Work Phone: [facility] 03-08-2024 09:43-0400 Body mass index (BMI) [Ratio] 38.69 kg/m2 Chloe Cheema MD Work Phone: [facility] 03-08-2024 09:43-0400 Body temperature 99.1 [degF] Chloe Cheema MD Work Phone: [facility] 03-08-2024 09:43-0400 Body weight 148 kg Chloe Cheema MD Work Phone: [facility] 03-08-2024 09:43-0400 Diastolic blood pressure 82 mm[Hg] Chloe Cheema MD Work Phone: [facility] 03-08-2024 09:43-0400 Heart rate 77 /min Chloe Cheema MD Work Phone: [facility] 03-08-2024 09:43-0400 SaO2% (BldA) [Mass fraction] 96 % Chloe Cheema MD Work Phone: [facility] 03-08-2024 09:43-0400 Systolic blood pressure 148 mm[Hg] Chloe Cheema MD Work Phone: [facility] 12-29-2023 08:00-0400 Body height 195.6 cm Chloe Cheema MD Work Phone: [facility] 12-29-2023 08:00-0400 Body mass index (BMI) [Ratio] 38.9 kg/m2 Chloe Cheema MD Work Phone: [facility] 12-29-2023 08:00-0400 Body weight 148.78 kg Chloe Cheema MD Work Phone: [facility] 12-29-2023 08:00-0400 Diastolic blood pressure 78 mm[Hg] Chloe Cheema MD Work Phone: [facility] 12-29-2023 08:00-0400 Heart rate 79 /min Chloe Cheema MD Work Phone: [facility] 12-29-2023 08:00-0400 SaO2% (BldA) [Mass fraction] 97 % Chloe Cheema MD Work Phone: [facility] 12-29-2023 08:00-0400 Systolic blood pressure 176 mm[Hg] Chloe Cheema MD Work Phone: [facility] 12-13-2023 09:30-0400 Body temperature 98.71 [degF] Susan Kerr APRN.CENTER MEDICAL DIRECTOR Work Phone: [facility] 12-13-2023 09:30-0400 Diastolic blood pressure 86 mm[Hg] Susan Haagen AIRPLANE FLIGHT ATTENDANT.CENTER MEDICAL DIRECTOR Work Phone: [facility] 12-13-2023 09:30-0400 Heart rate 64 /min Susan Haagen AIRPLANE FLIGHT ATTENDANT.CENTER MEDICAL DIRECTOR Work Phone: [facility] 12-13-2023 09:30-0400 Respiratory rate 16 /min Susan Lorenzoagen AIRPLANE FLIGHT ATTENDANT.CENTER MEDICAL DIRECTOR Work Phone: [facility] 12-13-2023 09:30-0400 SaO2% (BldA) [Mass fraction] 97 % Susan Hadeloris [employer]PLANE FLIGHT ATTENDANT.CENTER MEDICAL DIRECTOR Work Phone: [facility] 12-13-2023 09:30-0400 Systolic blood pressure 140 mm[Hg] Susan Haagen AIRPLANE FLIGHT ATTENDANT.CENTER MEDICAL DIRECTOR Work Phone: [facility] 11-29-2023 14:10-0400 Diastolic blood pressure 84 mm[Hg] Chloe Cheema MD Work Phone: [facility] 11-29-2023 14:10-0400 Systolic blood pressure 136 mm[Hg] Chloe Cheema MD Work Phone: [facility] 11-29-2023 13:56-0400 Body mass index (BMI) [Ratio] 38.66 kg/m2 Chloe Cheema MD Work Phone: [facility] 11-29-2023 13:56-0400 Body weight 147.87 kg Chloe Cheema MD Work Phone: [facility] 11-29-2023 13:56-0400 Heart rate 78 /min Chloe Cheema MD Work Phone: [facility] 11-29-2023 13:56-0400 SaO2% (BldA) [Mass fraction] 98 % Chloe Cheema MD Work Phone: [facility] 10-16-2023 14:28-0400 Body height 195.[address] Chloe Cheema Work Phone: [facility] 10-16-2023 14:28-0400 Body mass index (BMI) [Ratio] 39.2 kg/m2 Dr. Chloe Cheema Work Phone: [facility] 10-16-2023 14:28-0400 Body weight 150.[address] Chloe Cheema Work Phone: [facility] 10-16-2023 14:28-0400 Diastolic blood pressure 71 mm[Hg] Dr. Chloe Cheema Work Phone: [facility] 10-16-2023 14:28-0400 Heart rate 66 /min Dr. Chloe Cheema Work Phone: [facility] 10-16-2023 14:28-0400 Respiratory rate 16 /min Dr. Chloe Cheema Work Phone: [facility] 10-16-2023 14:28-0400 Systolic blood pressure 147 mm[Hg] Dr. Chloe Cheema Work Phone: [facility] 09-05-2023 16:04-0400 Body height 195.6 cm Chloe Cheema MD Work Phone: [facility] 09-05-2023 16:04-0400 Body weight 151.05 kg Chloe Cheema MD Work Phone: [facility] 09-05-2023 16:04-0400 Diastolic blood pressure 68 mm[Hg] Chloe Cheema MD Work Phone: [facility] 09-05-2023 16:04-0400 Heart rate 72 /min Chloe Cheema MD Work Phone: [facility] 09-05-2023 16:04-0400 SaO2% (BldA) [Mass fraction] 96 % Chloe Cheema MD Work Phone: [facility] 09-05-2023 16:04-0400 Systolic blood pressure 138 mm[Hg] Chloe Cheema MD Work Phone: [facility] 07-05-2023 13:02-0500 Body height 195.[address] Chloe Cheema Work Phone: [facility] 07-05-2023 13:02-0500 Body mass index (BMI) [Ratio] 40.4 kg/m2 Dr. Chloe Cheema Work Phone: [facility] 07-05-2023 13:02-0500 Body weight 154.[address] Chloe Cheema Work Phone: [facility] 07-05-2023 13:02-0500 Diastolic blood pressure 71 mm[Hg] Dr. Chloe Cheema Work Phone: [facility] 07-05-2023 13:02-0500 Heart rate 70 /min Dr. Chloe Cheema Work Phone: [facility] 07-05-2023 13:02-0500 Respiratory rate 18 /min Dr. Chloe Cheema Work Phone: [facility] 07-05-2023 13:02-0500 Systolic blood pressure 145 mm[Hg] Dr. Chloe Cheema Work Phone: [facility] 01-23-2023 17:22-0400 Diastolic blood pressure 70 mm[Hg] Chloe Cheema MD Work Phone: [facility] 01-23-2023 17:22-0400 Systolic blood pressure 138 mm[Hg] Chloe Cheema MD Work Phone: [facility] 01-23-2023 16:52-0400 Body height 195.6 cm Chloe Cheema MD Work Phone: [facility] 01-23-2023 16:52-0400 Body weight 148.96 kg Chloe Cheema MD Work Phone: [facility] 01-23-2023 16:52-0400 Heart rate 64 /min Chloe Cheema MD Work Phone: [facility] 01-23-2023 16:52-0400 SaO2% (BldA) [Mass fraction] 97 % Chloe Cheema MD Work Phone: [facility] 12-19-2022 15:34-0400 Body height 195.6 cm Chloe Cheema MD Work Phone: [facility] 12-19-2022 15:34-0400 Body weight 149.41 kg Chloe Cheema MD Work Phone: [facility] 12-19-2022 15:34-0400 Diastolic blood pressure 68 mm[Hg] Chloe Cheema MD Work Phone: [facility] 12-19-2022 15:34-0400 Heart rate 64 /min Chloe Cheema MD Work Phone: [facility] 12-19-2022 15:34-0400 SaO2% (BldA) [Mass fraction] 97 % Chloe Cheema MD Work Phone: [facility] 12-19-2022 15:34-0400 Systolic blood pressure 138 mm[Hg] Chloe Cheema MD Work Phone: [facility] 12-16-2022 12:54-0400 Body temperature 98.2 [degF] Dr. Chloe Cheema Work Phone: [facility] 12-16-2022 12:54-0400 Diastolic blood pressure 68 mm[Hg] Dr. Chloe Cheema Work Phone: [facility] 12-16-2022 12:54-0400 Heart rate 68 /min Dr. Chloe Cheema Work Phone: [facility] 12-16-2022 12:54-0400 Respiratory rate 18 /min Dr. Chloe Cheema Work Phone: [facility] 12-16-2022 12:54-0400 SaO2% (BldA) [Mass fraction] 100 % Dr. Chloe Cheema Work Phone: [facility] 12-16-2022 12:54-0400 Systolic blood pressure 131 mm[Hg] Dr. Chloe Cheema Work Phone: [facility] 12-16-2022 06:00-0400 Body mass index (BMI) [Ratio] 38.2 kg/m2 Dr. Chloe Cheema Work Phone: [facility] 12-16-2022 06:00-0400 Body weight 146.[address] Chloe Cheema Work Phone: [facility] 12-15-2022 23:33-0400 Body height 195.[address] Chloe Cheema Work Phone: 2(807)609-260834 [place] [address] 12-15-2022 23:00-0400 Body temperature 100.3 [degF] Dr. Chloe Cheema Work Phone: 1(226)194-911110 [place] [address] 12-15-2022 23:00-0400 Diastolic blood pressure 68 mm[Hg] Dr. Chloe Cheema Work Phone: 3(239)279-751434 [place] [address] 12-15-2022 23:00-0400 Heart rate 89 /min Dr. Chloe Cheema Work Phone: 1(234)929-160010 [place] [address] 12-15-2022 23:00-0400 Respiratory rate 20 /min Dr. Chloe Cheema Work Phone: 6(243)893-229310 [place] [address] 12-15-2022 23:00-0400 SaO2% (BldA) [Mass fraction] 97 % Dr. Chloe Cheema Work Phone: 3(399)354-355610 [place] [address] 12-15-2022 23:00-0400 Systolic blood pressure 136 mm[Hg] Dr. Chloe Cheema Work Phone: 9(769)581-640110 [place] [address] 12-15-2022 18:54-0400 Body height 195.[address] Chloe Cheema Work Phone: 5(246)975-346710 [place] [address] 12-15-2022 18:54-0400 Body mass index (BMI) [Ratio] 38.8 kg/m2 Dr. Chloe Cheema Work Phone: 3(226)168-669934 [place] [address] 12-15-2022 18:54-0400 Body weight 148.[address] Chloe Cheema Work Phone: 4(456)315-826610 [place] [address] 12-14-2022 20:51-0400 Body temperature 98.4 [degF] Dr. Chloe Cheema Work Phone: 1(116)594-261110 [place] [address] 12-14-2022 20:51-0400 Diastolic blood pressure 70 mm[Hg] Dr. Chloe Cheema Work Phone: 8(104)298-129810 [place] [address] 12-14-2022 20:51-0400 Heart rate 78 /min Dr. Chloe Cheema Work Phone: 6(992)842-609010 [place] [address] 12-14-2022 20:51-0400 Respiratory rate 16 /min Dr. Chloe Cheema Work Phone: [facility] 12-14-2022 20:51-0400 SaO2% (BldA) [Mass fraction] 97 % Dr. Chloe Cheema Work Phone: [facility] 12-14-2022 20:51-0400 Systolic blood pressure 136 mm[Hg] Dr. Chloe Cheema Work Phone: [facility] 12-14-2022 16:47-0400 Body mass index (BMI) [Ratio] 38 kg/m2 Dr. Chloe Cheema Work Phone: [facility] 12-14-2022 16:47-0400 Body weight 145.[address] Chloe Cheema Work Phone: [facility] 12-14-2022 16:17-0400 Body temperature 100.9 [degF] Chloe Cheema MD Work Phone: [facility] 12-14-2022 16:17-0400 Body weight 145.69 kg Chloe Cheema MD Work Phone: [facility] 12-14-2022 16:17-0400 Diastolic blood pressure 60 mm[Hg] Chloe Cheema MD Work Phone: [facility] 12-14-2022 16:17-0400 Heart rate 80 /min Chloe Cheema MD Work Phone: [facility] 12-14-2022 16:17-0400 SaO2% (BldA) [Mass fraction] 99 % Chloe Cheema MD Work Phone: [facility] 12-14-2022 16:17-0400 Systolic blood pressure 130 mm[Hg] Chloe Cheema MD Work Phone: [facility] 11-07-2022 10:11-0400 Diastolic blood pressure 78 mm[Hg] Dr. Chloe Cheema Work Phone: [facility] 11-07-2022 10:11-0400 Systolic blood pressure 140 mm[Hg] Dr. Chloe Cheema Work Phone: [facility] 11-07-2022 09:48-0400 Body mass index (BMI) [Ratio] 38.3 kg/m2 Dr. Chloe Cheema Work Phone: [facility] 11-07-2022 09:48-0400 Body weight 146.[address] Chloe Cheema Work Phone: [facility] 11-07-2022 09:48-0400 Heart rate 74 /min Dr. Chloe Cheema Work Phone: [facility] 11-07-2022 09:48-0400 Respiratory rate 16 /min Dr. Chloe Cheema Work Phone: [facility] 10-25-2022 14:54-0400 Diastolic blood pressure 66 mm[Hg] Chloe Cheema MD Work Phone: [facility] 10-25-2022 14:54-0400 Systolic blood pressure 130 mm[Hg] Chloe Cheema MD Work Phone: [facility] 10-25-2022 14:29-0400 Body height 195.6 cm Chloe Cheema MD Work Phone: [facility] 10-25-2022 14:29-0400 Body weight 147.42 kg Chloe Cheema MD Work Phone: [facility] 10-25-2022 14:29-0400 Heart rate 78 /min Chloe Cheema MD Work Phone: [facility] 10-25-2022 14:29-0400 SaO2% (BldA) [Mass fraction] 98 % Chloe Cheema MD Work Phone: [facility] 09-22-2022 16:16-0400 Body temperature 98.49 [degF] Chloe Cheema MD Work Phone: [facility] 09-22-2022 16:16-0400 Body weight 150.14 kg Chloe Cheema MD Work Phone: [facility] 09-22-2022 16:16-0400 Diastolic blood pressure 62 mm[Hg] Chloe Cheema MD Work Phone: [facility] 09-22-2022 16:16-0400 Heart rate 72 /min Chloe Cheema MD Work Phone: [facility] 09-22-2022 16:16-0400 SaO2% (BldA) [Mass fraction] 97 % Chloe Cheema MD Work Phone: [facility] 09-22-2022 16:16-0400 Systolic blood pressure 146 mm[Hg] Chloe Cheema MD Work Phone: [facility] 08-09-2022 11:17-0500 Body height 195.[address] Chloe Cheema Work Phone: [facility] 08-09-2022 11:17-0500 Body weight 149.[address] Chloe Cheema Work Phone: [facility] 08-08-2022 11:05-0500 Body mass index (BMI) [Ratio] 39.1 kg/m2 Dr. Chloe Cheema Work Phone: [facility] 08-03-2022 08:26-0500 Body mass index (BMI) [Ratio] 39.1 kg/m2 Dr. Chloe Cheema Work Phone: [facility] 08-03-2022 08:26-0500 Body weight 149.[address] Chloe Cheema Work Phone: [facility] 08-03-2022 08:26-0500 Diastolic blood pressure 76 mm[Hg] Dr. Chloe Cheema Work Phone: [facility] 08-03-2022 08:26-0500 Heart rate 65 /min Dr. Chloe Cheema Work Phone: 0(232)856-377934 [place] [address] 08-03-2022 08:26-0500 Respiratory rate 18 /min Dr. Chloe Cheema Work Phone: [facility] 08-03-2022 08:26-0500 SaO2% (BldA) [Mass fraction] 98 % Dr. Chloe Cheema Work Phone: 5(880)368-981534 [place] [address] 08-03-2022 08:26-0500 Systolic blood pressure 136 mm[Hg] Dr. Chloe Chemea Work Phone: 5(679)025-743710 [place] [address] 06-16-2022 13:29-0500 Body height 195.[address] Chloe Cheema Work Phone: 1(359)278-656970 [address] Work Phone: 06-16-2022 13:29-0500 Body mass index (BMI) [Ratio] 38.6 kg/m2 Dr. Chloe Cheema Work Phone: 1(410)928-753410 [place] [address] 06-16-2022 13:29-0500 Body weight 147.[address] Chloe Cheema Work Phone: 6(893)052-815710 [place] [address] 06-16-2022 13:29-0500 Diastolic blood pressure 77 mm[Hg] Dr. Chloe Cheema Work Phone: 0(855)850-629010 [place] [address] 06-16-2022 13:29-0500 Heart rate 67 /min Dr. Chloe Cheema Work Phone: 7(307)241-808510 [place] [address] 06-16-2022 13:29-0500 Respiratory rate 20 /min Dr. Chloe Cheema Work Phone: 0(677)093-768110 [place] [address] 06-16-2022 13:29-0500 SaO2% (BldA) [Mass fraction] 100 % Dr. Chloe Cheema Work Phone: 7(485)074-468310 [place] [address] 06-16-2022 13:29-0500 Systolic blood pressure 147 mm[Hg] Dr. Chloe Cheema Work Phone: 2(389)435-540210 [place] [address] 05-07-2022 14:37-0500 Diastolic blood pressure 94 mm[Hg] Dr. Chloe Cheema Work Phone: 6(390)817-456710 [place] [address] 05-07-2022 14:37-0500 Heart rate 65 /min Dr. Chloe Cheema Work Phone: 5(754)600-824910 [place] [address] 05-07-2022 14:37-0500 Respiratory rate 16 /min Dr. Chloe Cheema Work Phone: 0(429)002-995010 [place] [address] 05-07-2022 14:37-0500 SaO2% (BldA) [Mass fraction] 97 % Dr. Chloe Cheema Work Phone: 1(597)499-963934 [place] [address] 05-07-2022 14:37-0500 Systolic blood pressure 148 mm[Hg] Dr. Chloe Cheema Work Phone: 1(935)607-941310 [place] [address] 05-07-2022 11:28-0500 Body height 195.[address] Chloe Cheema Work Phone: 3(126)509-403034 [place] [address] Work Phone: 05-07-2022 11:28-0500 Body mass index (BMI) [Ratio] 39.1 kg/m2 Dr. Chloe Cheema Work Phone: 2(329)425-302110 [place] [address] 05-07-2022 11:28-0500 Body temperature 97.8 [degF] Dr. Chloe Cheema Work Phone: 2(663)813-930310 [place] [address] 05-07-2022 11:28-0500 Body weight 149.[address] Chloe Cheema Work Phone: 1(590)115-922810 [place] [address] 04-29-2022 10:06-0500 Body height 195.[address] Chloe Cheema Work Phone: 5(251)718-593834 [place] [address] Work Phone: 04-29-2022 10:06-0500 Body mass index (BMI) [Ratio] 38.2 kg/m2 Dr. Chloe Cheema Work Phone: 5(791)213-101734 [place] [address] 04-29-2022 10:06-0500 Body weight 146.[address] Chloe Cheema Work Phone: 5(986)885-279334 [place] [address] 04-29-2022 10:06-0500 Diastolic blood pressure 66 mm[Hg] Dr. Chloe Cheema Work Phone: 5(006)773-105734 [place] [address] 04-29-2022 10:06-0500 Heart rate 92 /min Dr. Chloe Cheema Work Phone: 4(107)461-206934 [place] [address] 04-29-2022 10:06-0500 Respiratory rate 16 /min Dr. Chloe Cheema Work Phone: 9(004)645-816234 [place] [address] 11-11-2022 10:06-0500 Systolic blood pressure 140 mm[Hg] Dr. Chloe Cheema Work Phone: [facility] 02-12-2022 14:28-0400 Diastolic blood pressure 77 mm[Hg] Dr. Chloe Cheema Work Phone: [facility] Work Phone: 02-12-2022 14:28-0400 Heart rate 60 /min Dr. Chloe Cheema Work Phone: [facility] Work Phone: 02-12-2022 14:28-0400 Respiratory rate 18 /min Dr. Chloe Cheema Work Phone: [facility] Work Phone: 02-12-2022 14:28-0400 SaO2% (BldA) [Mass fraction] 100 % Dr. Chloe Cheema Work Phone: [facility] Work Phone: 02-12-2022 14:28-0400 Systolic blood pressure 149 mm[Hg] Dr. Chloe Cheema Work Phone: [facility] Work Phone: 02-12-2022 11:29-0400 Body height 195.[address] Chloe Cheema Work Phone: [facility] Work Phone: 02-12-2022 11:29-0400 Body mass index (BMI) [Ratio] 38.5 kg/m2 Dr. Chloe Cheema Work Phone: [facility] Work Phone: 02-12-2022 11:29-0400 Body temperature 98.2 [degF] Dr. Chloe Cheema Work Phone: [facility] Work Phone: 02-12-2022 11:29-0400 Body weight 147.[address] Chloe Cheema Work Phone: [facility] Work Phone: 02-12-2022 10:50-0400 Body temperature 98.2 [degF] Carolann Lance AIRPLANE FLIGHT ATTENDANT.CENTER MEDICAL DIRECTOR Work Phone: [facility] 02-12-2022 10:50-0400 Body weight 147.42 kg Carolann Lance AIRPLANE FLIGHT ATTENDANT.CENTER MEDICAL DIRECTOR Work Phone: [facility] 02-12-2022 10:50-0400 Diastolic blood pressure 80 mm[Hg] Carolann Lance AIRPLANE FLIGHT ATTENDANT.CENTER MEDICAL DIRECTOR Work Phone: [facility] 02-12-2022 10:50-0400 Heart rate 72 /min Carolann Lance AIRPLANE FLIGHT ATTENDANT.CENTER MEDICAL DIRECTOR Work Phone: [facility] 02-12-2022 10:50-0400 Respiratory rate 16 /min Carolann Lance AIRPLANE FLIGHT ATTENDANT.CENTER MEDICAL DIRECTOR Work Phone: [facility] 02-12-2022 10:50-0400 SaO2% (BldA) [Mass fraction] 98 % Carolann Lance AIRPLANE FLIGHT ATTENDANT.CENTER MEDICAL DIRECTOR Work Phone: [facility] 02-12-2022 10:50-0400 Systolic blood pressure 152 mm[Hg] Carolann Lance AIRPLANE FLIGHT ATTENDANT.CENTER MEDICAL DIRECTOR Work Phone: [facility] 11-23-2021 08:56-0400 Body height 195.[address] Chloe Cheema Work Phone: [facility] Work Phone: 11-23-2021 08:56-0400 Body mass index (BMI) [Ratio] 38.5 kg/m2 Dr. Chloe Cheema Work Phone: [facility] Work Phone: 11-23-2021 08:56-0400 Body weight 147.[address] Chloe Cheema Work Phone: [facility] Work Phone: 11-23-2021 08:56-0400 Diastolic blood pressure 75 mm[Hg] Dr. Chloe Cheema Work Phone: [facility] Work Phone: 11-23-2021 08:56-0400 Heart rate 65 /min Dr. Chloe Cheema Work Phone: [facility] Work Phone: 11-23-2021 08:56-0400 Respiratory rate 18 /min Dr. Chloe Cheema Work Phone: [facility] Work Phone: 11-23-2021 08:56-0400 Systolic blood pressure 152 mm[Hg] Dr. Chloe Cheema Work Phone: [facility] Work Phone: 10-20-2021 08:31-0400 Body mass index (BMI) [Ratio] 38.9 kg/m2 Dr. Chloe Cheema Work Phone: [facility] Work Phone: 10-20-2021 08:31-0400 Body weight 149.[address] Chloe Cheema Work Phone: [facility] Work Phone: 10-20-2021 08:31-0400 Diastolic blood pressure 78 mm[Hg] Dr. Chloe Cheema Work Phone: [facility] Work Phone: 10-20-2021 08:31-0400 Heart rate 68 /min Dr. Chloe Cheema Work Phone: [facility] Work Phone: 10-20-2021 08:31-0400 Respiratory rate 12 /min Dr. Chloe Cheema Work Phone: [facility] Work Phone: 10-20-2021 08:31-0400 Systolic blood pressure 142 mm[Hg] Dr. Chloe Cheema Work Phone: [facility] Work Phone: 10-20-2021 08:31-0400 Body height 195.[address] Chloe Cheema Work Phone: [facility] Work Phone: 10-20-2021 08:31-0400 Body mass index (BMI) [Ratio] 38.9 kg/m2 Dr. Chloe Cheema Work Phone: [facility] Work Phone: 10-20-2021 08:31-0400 Body weight 149.[address] Chloe Cheema Work Phone: [facility] Work Phone: 10-20-2021 08:31-0400 Diastolic blood pressure 78 mm[Hg] Dr. Chloe Cheema Work Phone: [facility] Work Phone: 10-20-2021 08:31-0400 Heart rate 68 /min Dr. Chloe Cheema Work Phone: [facility] Work Phone: 10-20-2021 08:31-0400 Respiratory rate 12 /min Dr. Chloe Cheema Work Phone: [facility] Work Phone: 10-20-2021 08:31-0400 Systolic blood pressure 142 mm[Hg] Dr. Chloe Cheema Work Phone: [facility] Work Phone: 10-14-2021 12:04-0400 Body temperature 97.7 [degF] Kisha Wen APRN.CENTER MEDICAL DIRECTOR Work Phone: [facility] 10-14-2021 12:04-0400 Body weight 148.87 kg Kisha Wen APRN.CENTER MEDICAL DIRECTOR Work Phone: [facility] 10-14-2021 12:04-0400 Diastolic blood pressure 82 mm[Hg] Kisha Wen APRN.CENTER MEDICAL DIRECTOR Work Phone: [facility] 10-14-2021 12:04-0400 Heart rate 64 /min Kisha Wen APRN.CENTER MEDICAL DIRECTOR Work Phone: [facility] 10-14-2021 12:04-0400 Respiratory rate 20 /min Kisha Wen APRN.CENTER MEDICAL DIRECTOR Work Phone: [facility] 10-14-2021 12:04-0400 SaO2% (BldA) [Mass fraction] 99 % Kisha Wen APRN.CENTER MEDICAL DIRECTOR Work Phone: [facility] 10-14-2021 12:04-0400 Systolic blood pressure 150 mm[Hg] Kisha Wen APRN.CENTER MEDICAL DIRECTOR Work Phone: [facility] 12-14-2016 16:00-0400 BMI (Body Mass Index) 37.68 kg/m2 [facility] Work Phone: 12-14-2016 16:00-0400 BP Diastolic 70 mm[Hg] [facility] Work Phone: 12-14-2016 16:00-0400 BP Systolic 132 mm[Hg] [facility] Work Phone: 12-14-2016 16:00-0400 Pulse (Heart Rate) 84 /min [facility] Work Phone: 12-14-2016 16:00-0400 Weight 144.15 kg [facility] Work Phone: 08-17-2016 15:38-0500 Heart rate 80 /min [facility] Work Phone: 08-17-2016 14:56-0500 Height 195.58 cm [facility] Work Phone: 08-17-2016 14:56-0500 Pulse Oximetry 98 % [facility] Work Phone: 08-17-2016 14:56-0500 Respiratory Rate 20 /min [facility] Work Phone: 01-04-2016 14:27-0400 BSA (Body Surface Area) 2.7 m2 [facility] Work Phone: 10-30-2013 11:11-0400 Heart rate 396 ms [facility] Work Phone: Encounters Encounter Date Encounter Type Care Provider Facility Start: 02-19-2025 Evaluation and management of inpatient Dr. Kathleen Treviño MD -Progressive Care Unit Work Phone: Start: 02-19-2025 Non-patient / Non-visit Dr. Karl Vo MD -[facility] Start: 02-14-2025 End: 02-18-2025 Follow-up encounter Chloe Cheema MD Work Phone: [facility] Start: 02-14-2025 End: 02-14-2025 Subsequent hospital visit by physician [facility] Work Phone: Radiology Comment on above: SOB (shortness of br eath) [R06.02] Start: 02-14-2025 End: 02-14-2025 ambulatory CHLOE CHEEMA Facility:[facility] Start: 02-14-2025 End: 02-14-2025 Patient encounter procedure Chloe Cheema MD Work Phone: [facility] Comment on above: Fatigue, unspecified type (Primary Dx); Third degree AV block (HCC); SOB (shortness of breath); Class 2 severe obesity due to excess calories with serious comorbidity and body mass index (BMI) of 39.0 to 39.9 in adult (HCC); Atrial flutter, unspecified type (HCC); Presence of stent in coronary artery; History of pulmonary embolism; Chest discomfort; Acute cough Start: 02-14-2025 End: 02-14-2025 ambulatory CHLOE CHEEMA Facility:[facility] Start: 02-12-2025 End: 02-12-2025 Patient encounter procedure [facility] Work Phone: Start: 02-12-2025 End: 02-12-[address] Chloe Cheema MD Work Phone: [facility] Start: 02-03-2025 End: 02-03-2025 Patient Outreach Ratna Pimentel RN Work Phone: Director [employer] Comment on above: Initial phone contac t for Transitional Care Management Transition Of Care Start: 02-01-2025 Non-patient / Non-visit Dr. Librado Mustafa DO -[facility] Work Phone: Start: 01-31-2025 ambulatory Davy Riojas ility:[facility] Start: 01-31-2025 End: 02-01-2025 Evaluation and management of inpatient Dr. Librado Bah DO -Progressive Care Unit Work Phone: Start: 01-31-2025 Non-patient / Non-visit Dr. Bruce CONTI -[facility] Start: 01-30-2025 ambulatory Ashley Garcia ty:[facility] Start: 01-30-2025 Evaluation and management of inpatient Dr. Ashley Jacobs DO -Progressive Care Unit Work Phone: Start: 01-30-[address] Roger Cheema MD Work Phone: -Progressive Care Unit Start: 01-20-2025 End: 01-20-2025 ambulatory Chloe Cheema MD Work Phone: [facility] Comment on above: Colonoscopy Start: 01-07-2025 End: 01-07-2025 Admission to same day surgery center Richi Whitney MD Work Phone: Ambulatory Surgery Start: 01-07-2025 End: 01-07-2025 ambulatory Richi Whitney MD Work Phone: Ambulatory Surgery Start: 12-31-2024 End: 12-31-2024 Patient encounter procedure Yesica Bacon APRN.CENTER MEDICAL DIRECTOR Work Phone: General Surgery Comment on above: Rectal bleeding Start: 12-31-2024 End: 12-31-2024 ambulatory YESICA BACON Facility:[facility] Start: 12-30-2024 End: 12-30-2024 Refill Chloe Cheema MD Work Phone: [facility] Comment on above: Refill Request Start: 12-24-2024 End: 12-24-2024 Patient encounter procedure Chloe Cheema MD Work Phone: [facility] Comment on above: Rectal bleeding (Minnie dionisio Dx); Hyperglycemia; Sleep apnea, unspecified type; Coronary artery disease involving [place] coronary artery of [place] heart without angina pectoris; Class 2 obesity with body mass index (BMI) of 38.0 to 38.9 in adult, unspecified obesity type, unspecified whether serious comorbidity present; Attention deficit disorder, unspecified type Start: 12-24-2024 End: 12-24-2024 Telephone encounter Chloe Cheema MD Work Phone: [facility] Comment on above: Pharmacy Call Start: 12-24-2024 End: 12-24-2024 ambulatory CHLOE CHEEMA Facility:[facility] Start: 11-28-2024 End: 11-28-2024 Patient encounter procedure Hussein RUIZ -[facility] Work Phone: Start: 11-28-2024 End: 11-28-[address] Chloe Cheema MD Work Phone: [facility] Work Phone: Start: 11-21-2024 ambulatory Denise Haywood Fa cility:[facility] Start: 11-21-2024 Non-patient / Non-visit Dr. Lanette Haywood MD -[facility] Start: 11-21-2024 End: 11-21-[address] Chloe Cheema MD Work Phone: [facility] Work Phone: Start: 11-21-2024 End: 11-21-[address] Karl Vo MD -Cardiovascular Services Work Phone: Start: 11-21-2024 End: 11-21-2024 ambulatory Karl Vo Facility:[facility] Start: 11-20-2024 End: 11-20-2024 Emergency department patient visit Dr. Chloe Cheema MD Work Phone: -Emergency Department Work Phone: Start: 11-18-2024 End: 01-18-2025 Follow-up encounter Susan Kerr APRN.CNP Work Phone: [facility] Start: 11-18-2024 End: 11-18-2024 Subsequent hospital visit by physician Xr [facility] Work Phone: Radiology Comment on above: Acute cough [R05.1] Start: 11-18-2024 ambulatory [facility] Facility :[facility] Start: 11-18-2024 End: 11-18-2024 Office outpatient visit 25 minutes Susan Kerr AIRPLANE FLIGHT ATTENDANT.CENTER MEDICAL DIRECTOR Work Phone: [facility] Comment on above: Bronchitis (Primary Dx); SOB (shortness of breath); Acute cough Start: 11-18-2024 End: 11-18-2024 ambulatory [facility] Facility:[facility] Start: 10-28-2024 End: 10-28-2024 Emergency department patient visit Dr. Chloe Cheema MD Work Phone: -Emergency Department Work Phone: Start: 10-28-2024 End: 10-28-2024 ambulatory Nurse Intm/Famp Triage [facility] Work Phone: Nurse Phone Triage Comment on above: Rectal Bleeding Start: 10-21-2024 End: 10-21-2024 Patient encounter procedure Chloe Cheema MD Work Phone: [facility] Comment on above: Attention deficit di sorder, unspecified type (Primary Dx); Anxiety with depression; Thrombocytopenia Start: 10-21-2024 End: 10-21-2024 ambulatory CHLOE CHEEMA Facility:[facility] Start: 10-18-2024 End: 12-18-2024 Follow-up encounter Chloe Cheema MD Work Phone: [facility] Start: 10-18-2024 End: 10-18-2024 ambulatory CHLOE CHEEMA Facility:[facility] Start: 10-16-2024 End: 10-16-2024 Refill Chloe Cheema MD Work Phone: [facility] Comment on above: Refill Request Start: 09-27-2024 End: 09-27-2024 Telephone encounter Chloe Cheema MD Work Phone: [facility] Comment on above: Medication Problem Start: 09-23-2024 End: 09-23-2024 ambulatory CHLOE CHEEMA Facility:[facility] Start: 09-23-2024 End: 09-23-2024 Patient encounter procedure Chloe Cheema MD Work Phone: [facility] Comment on above: Attention deficit di sorder, unspecified type (Primary Dx); Anxiety with depression; Essential hypertension, benign Start: 09-19-2024 End: 09-19-2024 Telephone encounter Chloe Cheema MD Work Phone: Pulmonology [facility] Comment on above: Patient Update Start: 09-18-2024 End: 09-18-2024 Follow-up encounter Chloe Cheema MD Work Phone: [facility] Start: 09-17-2024 End: 09-17-2024 ambulatory CHLOE CHEEMA Facility:[facility] Start: 09-11-2024 End: 09-11-2024 ambulatory [facility] Facility:[facility] Start: 09-11-2024 End: 09-11-2024 Patient encounter procedure Chloe Cheema MD Work Phone: [facility] Comment on above: Coronary artery dise ase involving [place] coronary artery of [place] heart without angina pectoris (Primary Dx); Hyperlipidemia, unspecified hyperlipidemia type; Atrial flutter, unspecified type (HCC); Sleep apnea, unspecified type; Gastric intestinal metaplasia; History of pulmonary embolism; History of asthma; Fatigue, unspecified type Start: 08-16-2024 End: 08-16-2024 Patient encounter procedure [facility] Work Phone: Start: 08-16-2024 End: 08-16-2024 Refill Chloe Cheema MD Work Phone: Family [facility] Comment on above: Refill Request Start: 07-12-2024 End: 07-12-2024 Telephone encounter Chloe Cheema MD Work Phone: [facility] Comment on above: [employer] Start: 07-08-2024 End: 07-08-2024 Subsequent hospital visit by physician [facility] Work Phone: Radiology Comment on above: Bacterial pneumonia [J15.9] Start: 07-08-2024 End: 07-08-2024 ambulatory CHLOE CHEEMA Facility:[facility] Start: 07-08-2024 End: 07-08-2024 Patient encounter procedure Chloe Cheema MD Work Phone: [facility] Comment on above: Bacterial pneumonia (Primary Dx); Atrial flutter, unspecified type (HCC); Hyperglycemia; Hypokalemia Start: 07-01-2024 End: 07-01-2024 Refill Chloe Cheema MD Work Phone: [facility] Comment on above: Refill Request Start: 06-25-2024 End: 06-25-2024 Telephone encounter Chloe Cheema MD Work Phone: [facility] Comment on above: Results Start: 06-24-2024 End: 06-24-2024 ambulatory CHLOE CHEEMA Facility:[facility] Start: 06-24-2024 End: 06-24-2024 Patient encounter procedure Chloe Cheema MD Work Phone: [facility] Comment on above: Bacterial pneumonia (Primary Dx); Hemoptysis; History of pulmonary embolism; SOB (shortness of breath) Start: 06-17-2024 End: 06-17-2024 Subsequent hospital visit by physician Saba [facility] Work Phone: Radiology Comment on above: Bronchitis [J40] Start: 06-17-2024 End: 06-17-2024 ambulatory CHLOE CHEEMA Facility:[facility] Start: 06-17-2024 End: 06-17-2024 Patient encounter procedure Chloe Cheema MD Work Phone: [facility] Comment on above: Bronchitis (Primary Dx); Sinobronchitis Start: 06-17-2024 End: 06-17-2024 Telephone encounter Chloe Cheema MD Work Phone: [facility] Comment on above: Patient Question; Or ders Results Start: 06-13-2024 End: 06-13-2024 Patient encounter procedure Carolann Lucas APRN.CNP Work Phone: [facility] Comment on above: Rhinosinusitis (Prim archel Dx) Start: 06-13-2024 End: 06-13-2024 ambulatory CHLOE CHEEMA Facility:[facility] Start: 06-04-2024 End: 06-04-2024 ambulatory Mayelinmarisela Wareing Facility:[facility] Start: 04-26-2024 End: 04-26-2024 Telephone encounter Lisa Javed APRN.CENTER MEDICAL DIRECTOR Work Phone: [facility] Comment on above: Lab add on Start: 04-25-2024 End: 04-25-2024 Subsequent hospital visit by physician Xr [facility] Work Phone: Radiology Comment on above: Acute cough [R05.1] Start: 04-25-2024 End: 04-25-2024 ambulatory Chloe Cheema MD Work Phone: [facility] Comment on above: Fatigue Start: 04-25-2024 End: 04-25-2024 Patient encounter procedure Lisa Javed APRN.CENTER MEDICAL DIRECTOR Work Phone: [facility] Comment on above: Dizziness (Primary D x); Acute cough; Generalized weakness; SOB (shortness of breath) Start: 04-10-2024 End: 04-10-2024 Patient encounter procedure Rojas Dominguez MD Work Phone: [facility] Comment on above: Viral URI with cough (Primary Dx); Uncomplicated asthma, unspecified asthma severity, unspecified whether persistent Start: 04-10-2024 End: 04-10-2024 ambulatory ROJAS DOMINGUEZ Facility:[facility] Start: 03-13-2024 End: 03-13-2024 ambulatory CHLOE CHEEAM Facility:[facility] Start: 03-13-2024 End: 03-13-2024 Patient encounter procedure Chloe Cheema MD Work Phone: [facility] Comment on above: LLQ pain (Primary Dx ); RLQ abdominal pain; Diarrhea, unspecified type Start: 03-08-2024 ambulatory CHLOE CHEEMA Facility :[facility] Start: 03-08-2024 End: 03-08-2024 Subsequent hospital visit by physician [facility] Comment on above: Left lower quadrant abdominal pain [R10.32] Start: 03-08-2024 End: 03-08-2024 Telephone encounter Chloe Cheema MD Work Phone: [facility] Comment on above: Results Start: 03-08-2024 End: 03-08-2024 ambulatory CHLOE CHEEMA Facility:[facility] Start: 03-08-2024 End: 03-08-2024 Patient encounter procedure Chloe Cheema MD Work Phone: [facility] Comment on above: Coronary artery dise ase involving [place] coronary artery of [place] heart without angina pectoris (Primary Dx); Hyperlipidemia, unspecified hyperlipidemia type; Presence of stent in coronary artery; Sleep apnea, unspecified type; Uncomplicated asthma, unspecified asthma severity, unspecified whether persistent; History of pulmonary embolism; History of TIAs; Gastroesophageal reflux disease, unspecified whether esophagitis present; Diarrhea, unspecified type; LLQ pain; Chronic RLQ pain; Left lower quadrant abdominal pain Start: 01-09-2024 End: 01-09-2024 Office outpatient visit 10 minutes Beverley Casas AIRPLANE FLIGHT ATTENDANT.CENTER MEDICAL DIRECTOR Work Phone: [facility] Comment on above: COVID-19 (Primary Dx ) Start: 12-29-2023 End: 12-29-2023 Patient encounter procedure Chloe Cheema MD Work Phone: [facility] Comment on above: Bronchitis (Primary Dx); Atrial flutter, unspecified type (HCC); Uncomplicated asthma, unspecified asthma severity, unspecified whether persistent; Fatigue, unspecified type Start: 12-13-2023 Telephone encounter Susan puentes AIRPLANE FLIGHT ATTENDANT.CENTER MEDICAL DIRECTOR Work Phone: [facility] Comment on above: Orders Start: 12-13-2023 End: 12-13-2023 Office outpatient visit 25 minutes Susan Kerr AIRPLANE FLIGHT ATTENDANT.CENTER MEDICAL DIRECTOR Work Phone: [facility] Comment on above: Chronic cough (Prima ry Dx); Chest pain on breathing Start: 12-01-2023 Refill Chloe Cheema MD Work Phone: [facility] Comment on above: Refill Request Start: 11-29-2023 End: 11-29-2023 Patient encounter procedure Chloe Cheema MD Work Phone: [facility] Comment on above: ADHD (attention defi cit hyperactivity disorder), combined type (Primary Dx); Need for vaccination Start: 10-25-2023 End: 10-25-2023 [facility] Chloe Cheema MD Work Phone: [facility] Comment on above: ADHD (attention defi cit hyperactivity disorder), combined type (Primary Dx) Start: 10-20-2023 End: 10-20-[address] Chloe Cheema Work Phone: [facility] Start: 10-18-2023 End: 10-18-[address] Chloe Cheema Work Phone: [facility] Work Phone: Start: 10-18-2023 End: 10-18-[address] Chloe Cheema Work Phone: [facility] Work Phone: Start: 10-16-2023 End: 10-16-[address] Chloe Cheema Work Phone: [facility] Work Phone: Start: 09-07-2023 Telephone encounter Chloe Cheema MD Work Phone: [facility] Comment on above: Results Start: 09-05-2023 End: 09-05-2023 Patient encounter procedure Chloe Cheema MD Work Phone: [facility] Comment on above: Bacterial sinusitis (Primary Dx); Testosterone deficiency; Coronary artery disease involving [place] coronary artery of [place] heart without angina pectoris; Atrial flutter, unspecified type (HCC); Hyperlipidemia, unspecified hyperlipidemia type; Sleep apnea, unspecified type; Uncomplicated asthma, unspecified asthma severity, unspecified whether persistent; Gastric intestinal metaplasia; Polyarthritis; Spinal stenosis of lumbar region with neurogenic claudication; History of pulmonary embolism; Fatigue, unspecified type; Acute constipation Start: 09-04-2023 ambulatory Chloe Cheema MD Work Phone: [facility] Comment on above: Nexium not registere d at [facility]. Start: 07-19-2023 End: 07-19-2023 ambulatory CHLOE CHEEMA Facility:[facility] Start: 07-13-2023 End: 07-13-[address] Chloe Cheema Work Phone: [facility] Work Phone: Start: 07-13-2023 End: 07-13-[address] Chloe Cheema Work Phone: [facility] Work Phone: Start: 07-05-2023 End: 07-05-2023 Admission to same day surgery center Dr. Chloe Cheema Work Phone: [facility] Start: 07-05-2023 End: 07-05-[address] Chloe Cheema Work Phone: [facility] Work Phone: Start: 06-30-2023 End: 04-23-2024 Telephone encounter Wendy Bales MD Work Phone: General Surgery Comment on above: 07/19/2023 UMBILICAL HERNIA REPAIR [facility] Start: 06-08-2023 Refill Chloe Cheema MD Work Phone: [facility] Comment on above: Refill Request Start: 05-09-2023 End: 05-09-2023 ambulatory [facility] Work Phone: Start: 05-09-2023 End: 05-09-2023 Discharged Recurring [facility]Physical [facility] Work Phone: Start: 04-27-2023 Registered Recurring [facility] Work Phone: Start: 04-25-2023 End: 04-25-2023 ambulatory [facility] Work Phone: Start: 04-25-2023 End: 04-25-2023 Patient encounter procedure [facility] Work Phone: Start: 04-03-2023 End: 04-03-2023 Subsequent hospital visit by physician Xr [facility] Work Phone: Radiology Comment on above: Pain of left heel [M 79.672] Start: 01-23-2023 End: 01-23-2023 Patient encounter procedure Chloe Cheema MD Work Phone: Family [facility] Comment on above: Essential hypertensi on, benign (Primary Dx); Recurrent UTI (urinary tract infection); Adjustment disorder with anxious mood; Fatigue, unspecified type; Atrial flutter, unspecified type (HCC); Coronary artery disease involving [place] coronary artery of [place] heart without angina pectoris Start: 01-03-2023 ambulatory Chloe Cheema MD Work Phone: Family [facility] Comment on above: Therapist Start: 01-03-2023 Telephone encounter Vee gutierrez [facility] Work Phone: Psychology Comment on above: bh consult Start: 12-22-2022 Refill Sincere Rosales on PA-C Work Phone: [facility] Comment on above: Refill Request Start: 12-19-2022 End: 12-19-2022 Patient encounter procedure Chloe Cheema MD Work Phone: [facility] Comment on above: Urinary tract infect ion without hematuria, site unspecified (Primary Dx); Hypokalemia; Leukocytosis, unspecified type Start: 12-16-2022 Non-patient / Non-visit Dr. Catina Cheema Work Phone: [facility] Work Phone: Start: 12-15-2022 End: 12-16-2022 Evaluation and management of inpatient Dr. Chloe Cheema Work Phone: [facility]Medical Surgical 3 Work Phone: Start: 12-15-2022 ambulatory Chloe Cheema MD Work Phone: [facility] Comment on above: ER F/U Start: 12-14-2022 End: 12-14-2022 Emergency department patient visit Dr. Chloe Cheema Work Phone: [facility]Emergency Department Work Phone: Start: 12-14-2022 End: 12-14-2022 Patient encounter procedure Chloe Cheema MD Work Phone: [facility] Comment on above: Urinary tract infect ion with hematuria, site unspecified (Primary Dx); Fever, unspecified fever cause; Dehydration Start: 11-22-2022 ambulatory Latisha Watt Work Phone: General Surgery Comment on above: Insurance Start: 11-07-2022 End: 11-07-[address] Chloe Cheema Work Phone: [facility] Work Phone: Start: 10-25-2022 End: 10-25-2022 Patient encounter procedure Chloe Cheema MD Work Phone: [facility] Comment on above: Essential hypertensi on, benign (Primary Dx); History of pulmonary embolism; Coronary artery disease involving [place] coronary artery of [place] heart without angina pectoris; Atrial flutter, unspecified type (HCC); Adjustment disorder with anxious mood Start: 10-25-2022 Telephone encounter Chloe Cheema MD Work Phone: [facility] Comment on above: Medication Problem Start: 10-21-[address] Pola Cheema Work Phone: [facility]Physical Therapy Work Phone: Start: 09-23-2022 Telephone encounter [facility] Comment on above: Consult (Patient Out reach [facility]) Start: 09-22-2022 End: 09-22-2022 Patient encounter procedure Chloe Cheema MD Work Phone: [facility] Comment on above: Bacterial sinusitis (Primary Dx); Adjustment disorder with anxious mood; Essential hypertension, benign; Other pulmonary embolism without acute cor pulmonale, unspecified chronicity (HCC); Hyperlipidemia, unspecified hyperlipidemia type; Coronary artery disease involving [place] coronary artery of [place] heart without angina pectoris; Sleep apnea, unspecified type; Uncomplicated asthma, unspecified asthma severity, unspecified whether persistent; Atrial flutter, unspecified type (HCC); Myalgia; Disorder of bone, unspecified Start: 09-06-2022 Refill Sincere romo PA-C Work Phone: [facility] Comment on above: Refill Request Start: 08-09-2022 Non-patient / Non-visit Dr. Catina Cheema Work Phone: [facility] Start: 08-09-2022 End: 08-09-2022 Admission to same day surgery center Dr. Chloe Cheema Work Phone: [facility]-Preparer/Special Procedures Start: 08-09-2022 End: 08-09-[address] Chloe Cheema Work Phone: [facility] Work Phone: Start: 08-08-2022 Non-patient / Non-visit Dr. Catina Cheema Work Phone: [facility] Start: 08-03-2022 End: 08-03-[address] Chloe Cheema Work Phone: [facility] Start: 06-22-2022 Refill Chloe Cheema MD Work Phone: [facility] [facility] Comment on above: Refill Request Start: 06-16-2022 End: 06-16-[address] Chloe Cheema Work Phone: [facility] Work Phone: Start: 06-16-2022 End: 06-16-[address] Chloe Cheema Work Phone: [facility] Start: 06-16-2022 End: 06-16-[address] [facility] Start: 05-18-2022 Non-patient / Non-visit Dr. Catina Cheema Work Phone: [facility] Start: 05-18-2022 End: 05-18-[address] Chloe Cheema Work Phone: [facility] Work Phone: Start: 05-18-2022 End: 05-18-[address] Chloe Cheema Work Phone: [facility] Start: 05-09-2022 End: 05-09-[address] Chloe Cheema Work Phone: [facility]/Neurology Start: 05-07-2022 End: 05-07-2022 Emergency department patient visit Dr. Chloe Cheema Work Phone: [facility] Start: 04-29-2022 End: 04-29-[address] Chloe Cheema Work Phone: [facility] Start: 04-29-2022 End: 04-29-[address] Chloe Cheema Work Phone: [facility] Start: 04-25-2022 End: 04-25-[address] Chloe Cheema Work Phone: [facility] Work Phone: Start: 04-25-2022 End: 04-25-2022 [facility] Start: 04-21-2022 Chart abstracting Chloe Becker MD Work Phone: [facility] Start: 04-20-2022 End: 04-20-2022 ambulatory [facility] Work Phone: Start: 04-20-2022 End: 04-20-2022 Patient encounter procedure [facility] Start: 03-12-2022 Refill Chloe Cheema MD Work Phone: [facility] Comment on above: Refill Request Start: 02-22-2022 Refill M Marc Rosales on PA-C Work Phone: [facility] Comment on above: Refill Request Start: 02-12-2022 End: 02-12-2022 Emergency department patient visit Dr. Chloe Cheema Work Phone: [facility] Start: 02-12-2022 End: 02-12-2022 Patient encounter procedure Carolann Lucas COMFORT.CENTER MEDICAL DIRECTOR Work Phone: [facility] Comment on above: Facial pain (Primary Dx); Right ear pain; Acute right eye pain Start: 12-16-2021 ambulatory Chloe Cheema MD Work Phone: [facility] Comment on above: Hello Doc Start: 12-07-2021 Telephone encounter Chloe Cheema MD Work Phone: [facility] Comment on above: ear problems/sinuses Start: 11-29-2021 Telephone encounter Chloe Cheema MD Work Phone: [facility] Comment on above: Results Patient Update Start: 11-29-2021 End: 11-29-[address] Chloe Cheema Work Phone: [facility], Specimen Start: 11-29-2021 End: 11-29-2021 Subsequent hospital visit by physician Xr [facility] Work Phone: Radiology Comment on above: Other pulmonary embo lism without acute cor pulmonale, unspecified chronicity (HCC) [I26.99] Start: 11-28-2021 ambulatory Chloe Cheema MD Work Phone: [facility] Comment on above: Covid issues Start: 11-23-2021 End: 11-23-[address] Chloe Cheema Work Phone: [facility] Start: 11-13-2021 ambulatory Chloe Cheema MD Work Phone: [facility] Comment on above: Prescription ran out Start: 10-20-2021 End: 10-20-[address] Chloe Cheema Work Phone: [facility] Start: 10-20-2021 End: 10-20-[address] Chloe Cheema Work Phone: [facility] Start: 10-14-2021 End: 10-14-2021 Patient encounter procedure Kisha Wen APRN.CNP Work Phone: [facility] Comment on above: Feeling light headed (Primary Dx) Start: 09-30-2021 End: 09-30-[address] Chloe Cheema Work Phone: [facility] Radiology Start: 09-10-2021 End: 09-10-2021 Patient encounter procedure Oliva Gutierrez PA-C Work Phone: Orthopaedics Comment on above: Pes planus of both f eet (Primary Dx); Acquired valgus deformity of right ankle; Primary osteoarthritis of right ankle Start: 09-10-2021 End: 09-10-2021 Subsequent hospital visit by physician X[facility] Work Phone: Radiology Comment on above: Pain [R52] Start: 09-05-2020 Patient encounter procedure Juana Rosa MD Work Phone: [facility] Start: 09-05-2020 Progress Note Juana walter MD Work Phone: [facility] Start: 04-28-2020 End: 04-28-2020 Subsequent hospital visit by physician Xr [facility] Work Phone: Radiology Comment on above: Pain of right heel [ M79.671] Start: 03-19-2020 Patient encounter procedure Eyal Montoya DO Work Phone: [facility] Start: 03-19-2020 Progress Note Eyal Bagley Work Phone: [facility] Start: 10-30-2017 End: 10-30-2017 Emergency department patient visit [facility] Procedures Date Procedure Procedure Detail Performing Clinician Start: 02-19-2025 X-ray of chest, PA a nd lateral views Dr. Chloe Cheema MD Work Phone: Start: 02-19-[address] Chloe Cheema MD Work Phone: Start: 02-19-2025 Serum inorganic phos phate measurement Dr. Chloe Cheema MD Work Phone: Start: 02-14-2025 Radiologic exam ches t 2 views Chloe Cheema MD Work Phone: Start: 02-01-[address] Chloe Cheema MD Work Phone: Start: 02-01-2025 Serum inorganic phos phate measurement Dr. Chloe Cheema MD Work Phone: Start: 02-01-2025 X-ray of chest, PA a nd lateral views Dr. Chloe Cheema MD Work Phone: Start: 01-31-2025 D-dimer assay, quantitative Dr. Chloe Cheema MD Work Phone: Comment on above: NORMAL D-Dimer level (<0.50) indicates no DVT or PE. Start: 01-31-[address] Chito Cheema MD Work Phone: Start: 01-31-[address] July Cheema MD Work Phone: Start: 01-30-2025 Urnls dip stick/tabl et reagent auto microscopy Dr. Chloe Cheema MD Work Phone: Start: 01-30-2025 Computed tomography of abdomen and pelvis with intravenous contrast Dr. Chloe Cheema MD Work Phone: Start: 01-30-2025 CT angiography of he ad and neck Dr. Chloe Cheema MD Work Phone: Start: 01-30-2025 CT of head without contrast Dr. Chloe Cheema MD Work Phone: Start: 01-30-2025 Plain chest X-ray Dr. Chito Cheema MD Work Phone: Start: 11-21-2024 Cardiovascular stres s test using pharmacologic stress agent Dr. Chloe Cheema MD Work Phone: Start: 11-20-2024 X-ray of chest, PA a nd lateral views Dr. Chloe Cheema MD Work Phone: Start: 11-20-2024 D-dimer assay, quantitative Dr. Chloe Cheema MD Work Phone: Comment on above: NORMAL D-Dimer level (<0.50) indicates no DVT or PE. Start: 11-20-[address] Chloe Cheema MD Work Phone: Start: 11-18-2024 Radiologic exam ches t 2 views Susan Kerr AIRPLANE FLIGHT ATTENDANT.CENTER MEDICAL DIRECTOR Work Phone: Start: 10-28-2024 Computed tomography of abdomen and pelvis with intravenous contrast Dr. Chloe Cheema MD Work Phone: Start: 10-28-[address] Chloe Cheema MD Work Phone: Start: 10-28-2024 Urnls dip stick/tabl et reagent auto microscopy Dr. Chloe Cheema MD Work Phone: Start: 09-17-2024 Lipid 1996 panel - S pierre or Plasma Chloe Cheema MD Work Phone: Start: 07-08-2024 Radiologic exam ches t 2 views Chloe Cheema MD Work Phone: Start: 06-17-2024 Radiologic exam ches t 2 views Chloe Cheema MD Work Phone: Start: 04-25-2024 Radiologic exam ches t 2 views Lisa Javed AIRPLANE FLIGHT ATTENDANT.CENTER MEDICAL DIRECTOR Work Phone: Start: 03-08-2024 Ct abdomen & pelvis w/contrast material Chloe Cheema MD Work Phone: Start: 12-29-2023 Adult depression scr eening assessment [facility] Work Phone: Start: 10-20-2023 Plain x-ray of pelvi s and lower extremity Dr. Chloe Cheema Work Phone: Start: 09-06-2023 Lipid 1996 panel - S pierre or Plasma Chloe Cheema MD Work Phone: Start: 07-26-2023 End: 07-26-2023 History of percutaneous transluminal coronary angioplasty Status post coronary artery balloon dilation Chloe Cheema MD Work Phone: Start: 04-03-2023 Radex foot complete minimum 3 views Anabelle Tom AIRPLANE FLIGHT ATTENDANT.CENTER MEDICAL DIRECTOR Work Phone: Start: 12-15-2022 Plain chest X-ray Dr. Chito Cheema Work Phone: Start: 12-15-[address] Chloe Cheema Work Phone: Start: 12-14-2022 Plain chest X-ray Dr. Chito Cheema Work Phone: Start: 12-14-2022 CT of abdomen and pe lvis without contrast Dr. Chloe Cheema Work Phone: Start: 12-14-2022 Urnls dip stick/tabl et rgnt auto w/o microscopy Chloe Cheema MD Work Phone: Start: 12-14-[address] Pola Cheema Work Phone: Start: 12-01-2022 Colonoscopy NA Abhilash PA-C Work Phone: Start: 09-26-2022 Lipid 1996 panel - S pierre or Plasma Chloe Cheema MD Work Phone: Start: 05-18-2022 Cardiovascular stres s test using pharmacologic stress agent Dr. Chloe Cheema Work Phone: Start: 05-07-2022 Plain chest X-ray Dr. Chito Cheema Work Phone: Start: 04-20-2022 Lipid panel [facility] Provid er Start: 02-12-2022 CT of head without contrast Dr. Chloe Cheema Work Phone: Start: 11-29-2021 Radiologic exam ches t 2 views Chloe Cheema MD Work Phone: Start: 09-30-2021 X-ray of cervical spine Dr. Chloe Cheema Work Phone: Start: 09-10-2021 Radex ankle complete minimum 3 views Oliva Gutierrez PA-C Work Phone: Start: 04-28-2020 Radex foot complete minimum 3 views M Marc Abhilash PA-C Work Phone: Start: 01-28-2019 Colonoscopy Oliva myrick PA-C Work Phone: Start: 01-24-2019 Colonoscopy Kisha Wen APRN.CNP Work Phone: Start: 05-22-2018 Adult depression scr [...] Follow Up Appt 3 months Lorena Cruz EPITAXIAL REACTOR OPERATOR Work Phone: Start: 08-17-2016 End: 08-17-2016 MMM Lorena Cruz EPITAXIAL REACTOR OPERATOR Work Phone: Start: 01-04-2016 End: 01-04-2016 Dietary [...] Work Phone: Start: 12-04-2013 End: 01-06-2014 *BMP Wendy Steen MD Work Phone: Start: 12-04-2013 End: 01-06-2014 CBC W Auto Differential panel - Blood Wendy Steen MD Work Phone: Start: 12-04-2013 End: 03-25-2015 Chest x-ray Wendy Steen MD Work Phone: Start: 12-04-2013 End: 01-06-2014 Coagulation factor induced.INR assay in platelet poor plasma Wendy Steen MD Work Phone: Start: 12-04-2013 End: 03-12-2014 Electrocardiogram, complete Wendy Steen MD Work Phone: Start: 12-04-2013 End: 03-12-2014 Left Heart Cath Wendy Steen MD Work Phone: Start: 12-02-2013 End: 12-05-2013 Stress Echocardiogram (treadmill) Wendy Steen MD Work Phone: Start: 10-30-2013 End: [...] angioplasty H/O percutaneous transluminal coronary angioplasty Dr. Chloe Cheema Work Phone: Plan of Treatment Date Care Activity Detail Author Start: 09-17-2029 Lipid panel Lipid Screening [facility] Start: 09-05-2028 Lipid panel Lipid Screening [facility] Start: 02-15-2028 Diabetes Screening Diabetes Screening [facility] Start: 12-02-2027 Colonoscopy COLONOSCOPY [facility] Start: 12-02-2027 COLORECTAL CANCER SCREENING COLORECTAL CANCER SCREENING [facility] Start: 12-02-2027 Screening for malignant neoplasm of colon [facility] Start: 09-27-2027 Lipid panel Lipid Screening [facility] Start: 09-27-2027 LIPID SCREEN LIPID SCREEN [facility] Start: 09-18-2027 Diabetes Screening Diabetes Screening [facility] Start: 07-08-2027 Diabetes Screening Diabetes Screening [facility] Start: 06-24-2027 Diabetes Screening Diabetes Screening [facility] Start: 04-25-2027 Diabetes Screening Diabetes Screening [facility] Start: 04-20-2027 LIPID SCREEN LIPID SCREEN [facility] Start: 03-08-2027 Diabetes Screening Diabetes Screening [facility] Start: 12-19-2026 Diabetes Screening Diabetes Screening [facility] Start: 12-12-2026 Diabetes Screening Diabetes Screening [facility] Start: 09-05-2026 Diabetes Screening Diabetes Screening [facility] Start: 02-14-2026 Annual PCP Team Chronic Disease Visit Annual PCP Team Chronic Disease Visit [facility] Start: 02-08-2026 Diabetes Screening Diabetes Screening [facility] Start: 12-29-2025 DIABETES SCREEN DIABETES SCREEN [facility] Start: 12-24-2025 Annual PCP Team Chronic Disease Visit Annual PCP Team Chronic Disease Visit [facility] Start: 12-19-2025 DIABETES SCREEN DIABETES SCREEN [facility] Start: 11-18-2025 Annual PCP Team Chronic Disease Visit Annual PCP Team Chronic Disease Visit [facility] Start: 10-22-2025 PROSTATE CANCER SCREENING DISCUSSION PROSTATE CANCER SCREENING DISCUSSION [facility] Start: 10-22-2025 Prostate specific antigen measurement Prostate Cancer Screening Discussion [facility] Start: 10-21-2025 Annual PCP Team Chronic Disease Visit Annual PCP Team Chronic Disease Visit [facility] Start: 09-26-2025 DIABETES SCREEN DIABETES SCREEN [facility] Start: 09-23-2025 Annual PCP Team Chronic Disease Visit Annual PCP Team Chronic Disease Visit [facility] Start: 09-17-2025 Hepatitis B surface antibody level LDL Cholesterol [facility] Start: 09-11-2025 Annual PCP Team Chronic Disease Visit Annual PCP Team Chronic Disease Visit [facility] Start: 09-11-2025 RSV Vaccine (1 - Risk 60-74 years 1-dose series) RSV Vaccine (1 - Risk 60-74 years 1-dose series) [facility] Comment on above: Postponed from 2017 (Declined at t his time) Start: 07-08-2025 Annual PCP Team Chronic Disease Visit Annual PCP Team Chronic Disease Visit [facility] Start: 06-24-2025 Annual PCP Team Chronic Disease Visit Annual PCP Team Chronic Disease Visit [facility] Start: 06-17-2025 Annual PCP Team Chronic Disease Visit Annual PCP Team Chronic Disease Visit [facility] Start: 04-25-2025 Annual PCP Team Chronic Disease Visit Annual PCP Team Chronic Disease Visit [facility] Start: 04-10-2025 Annual PCP Team Chronic Disease Visit Annual PCP Team Chronic Disease Visit [facility] Start: 03-28-2025 End: 03-28-2025 Patient encounter procedure 03/28/2025 8:00 AM EDT Office Visit [facility] [address] [place] [address] Chloe Cheema MD [address] [place] [address] Medicare Wellness [facility] Comment on above: Medicare Wellness Start: 03-27-2025 End: 03-27-2025 Patient encounter procedure 03/27/2025 8:00 AM EDT Appointment [facility] [address] [place] [address] Jaimie Bennett MD [address] [place] [id number] Rectal bleeding [K62.5] [facility] Comment on above: Rectal bleeding [K62.5] Start: 03-13-2025 Annual PCP Team Chronic Disease Visit Annual PCP Team Chronic Disease Visit [facility] Start: 03-10-2025 End: 03-10-2025 Patient encounter procedure 03/10/2025 9:00 AM EDT Office Visit [facility] [address] [place] [address] Chloe Cheema MD [address] [place] [address] 8 week follow up [facility] Comment on above: 8 week follow up Start: 03-08-2025 Annual PCP Team Chronic Disease Visit Annual PCP Team Chronic Disease Visit [facility] Start: 03-08-2025 Covid-19 Vaccine () Covid-19 Vaccine () [facility] Comment on above: Postponed from 02/18/2024 (Declined at t his time) Start: 03-08-2025 Covid-19 Vaccine () Covid-19 Vaccine () [facility] Comment on above: Postponed from 02/18/2024 (Declined at t his time) Start: 02-28-2025 End: 02-28-2025 Patient encounter procedure 02/28/2025 9:00 AM EDT Office Visit [facility] [address] [place] [address] Beverley Casas APRN.CENTER MEDICAL DIRECTOR [address] [place], [place] [id number] 2 week follow up [facility] Comment on above: 2 week follow up Start: 02-19-2025 Verification routine [facility] Start: 02-19-2025 Admission procedure [facility] Start: 02-19-2025 Hospital admission, emergency, from emergency room, medical nature [facility] Start: 02-19-2025 [facility] Start: 02-17-2025 Influenza vaccination [facility] Start: 02-14-2025 End: 05-16-2025 Basic metabolic 2000 panel - Serum or Plasma [facility] Comment on above: Expected: 02/14/2025, Expires: Start: 02-14-2025 End: 05-16-2025 CBC W Auto Differential panel - Blood [facility] Work Phone: Comment on above: Expected: 02/14/2025, Expires: Start: 02-14-2025 End: 05-16-2025 Natriuretic peptide.B prohormone N-Terminal [Mass/volume] in Serum or Plasma [facility] Comment on above: Expected: 02/14/2025, Expires: Start: 02-14-2025 End: 05-16-2025 Thyrotropin [Units/volume] in Serum or Plasma [facility] Comment on above: Expected: 02/14/2025, Expires: Start: 02-14-2025 End: 02-14-2025 Patient encounter procedure 02/14/2025 11:00 AM EDT Office Visit [facility] [address] [place] [address] Chloe Cheema MD [address] [place] [address] hospital follow up [facility] Comment on above: hospital follow up Start: 02-01-2025 Patient discharge [facility] Start: 02-01-2025 Serum inorganic phosphate measurement [facility] Start: 02-01-2025 Inhalation therapy procedure [facility] Start: 01-31-2025 [facility] Start: 01-31-2025 Admission procedure [facility] Start: 01-31-2025 Assessment of risk of venous thromboembolism [facility] Start: 01-31-2025 Bedrest [facility] Start: 01-31-2025 Elevation of head of bed [facility] Start: 01-31-2025 Notification of physician [facility] Start: 01-31-2025 Taking patient vital signs [facility] Start: 01-31-2025 Wound care [facility] Start: 01-31-2025 [facility] Start: 01-31-2025 Catheterization of vein [facility] Start: 01-31-2025 Notification of physician [facility] Start: 01-31-2025 [facility] Start: 01-31-2025 Borrelia burgdorferi blot test [facility] Start: 01-31-2025 Serum inorganic phosphate measurement [facility] Start: 01-31-2025 Continuous positive airway pressure ventilation treatment [facility] Start: 01-30-2025 Application of intermittent pneumatic compression device [facility] Start: 01-30-2025 Following clinical pathway protocol [facility] Start: 01-30-2025 Assessment of risk of venous thromboembolism [facility] Start: 01-30-2025 Incentive spirometry [facility] Start: 01-30-2025 Insertion of catheter into peripheral vein [facility] Start: 01-30-2025 Measuring intake and output [facility] Start: 01-30-2025 Oxygen therapy [facility] Start: 01-30-2025 Providing care according to standard [facility] Start: 01-30-2025 Provision of activity privileges [facility] Start: 01-30-2025 Referral to air cargo ground operations supervisor [facility] Start: 01-30-2025 Referral to occupational therapist [facility] Start: 01-30-2025 Referral to service [facility] Start: 01-30-2025 Thyroid stimulating hormone measurement [facility] Start: 01-30-2025 Vitamin B12 measurement [facility] Start: 01-30-2025 [facility] Start: 01-30-2025 Verification routine [facility] Start: 01-30-2025 Admission procedure [facility] Start: 01-30-2025 End: 01-30-2025 [facility] Start: 01-14-2025 End: 01-14-2025 Patient encounter procedure 01/14/2025 1:45 PM EDT Appointment Ambulatory Surgery [address] [place] [address] Richi Whitney MD [address] [place] [address] Rectal bleeding [K62.5] Ambulatory Surgery Comment on above: Rectal bleeding [K62.5] Start: 01-02-2025 End: 01-02-2025 Anesthesia consultation 01/02/2025 11:59 PM EDT Anesthesia Event Ambulatory Surgery [address] [place] [address] Kell Sanon, AIRPLANE FLIGHT ATTENDANT.INSIDE SALES ASSISTANT [address] [place] [address] Ambulatory Surgery Start: 12-31-2024 End: 12-31-2024 Patient encounter procedure General Surgery Comment on above: Rectal bleeding [K62.5]-Colonoscopy CONSULT: Rectal blee lis-Colonoscopy. Last 12/01/22 ([address] Cheema referred. [facility] Start: 12-28-2024 Annual PCP Team Chronic Disease Visit Annual PCP Team Chronic Disease Visit [facility] Start: 12-28-2024 Anxiety Screening Anxiety Screening [facility] Start: 12-28-2024 Covid-19 Vaccine () Covid-19 Vaccine () [facility] Comment on above: Postponed from 11/24/2023 (Declined at t his time) Start: 12-28-2024 Depression Screening Depression Screening [facility] Start: 12-24-2024 End: 12-24-2024 Patient encounter procedure 12/24/2024 2:00 PM EDT Office Visit [facility] [address] [place] [address] Chloe Cheema MD [address] [place], [place] [id number] 8 week follow up [facility] Comment on above: 8 week follow up Start: 12-22-2024 LIPID SCREEN LIPID SCREEN [facility] Start: 12-16-2024 Influenza vaccination Influenza Vaccine (#1) [place] [facility] Comment on above: Postponed from 02/18/2024 (Declined at t his time) Start: 12-12-2024 Annual PCP Team Chronic Disease Visit Annual PCP Team Chronic Disease Visit [facility] Start: 11-28-2024 Annual PCP Team Chronic Disease Visit Annual PCP Team Chronic Disease Visit [facility] Start: 11-28-2024 Patient referral [facility] Work Phone: Start: 11-28-2024 Shingrix Vaccine (1 of 2) Shingrix Vaccine (1 of 2) Sue [facility] Comment on above: Postponed from 09/22/2007 (Declined at t his time) Start: 11-28-2024 Urine microalbumin profile DTaP,Tdap,Td Vaccine (1 - Tdap) [facility] Comment on above: Postponed from 1976 (Declined at t his time) Start: 11-20-2024 [facility] Start: 11-20-2024 End: 11-20-2024 [facility] Start: 10-28-2024 [facility] Start: 10-24-2024 Annual PCP Team Chronic Disease Visit Annual PCP Team Chronic Disease Visit [facility] Start: 10-21-2024 End: 10-21-2024 Patient encounter procedure 10/21/2024 9:00 AM EDT Office Visit [facility] [address] [facility] [place] [address] Chloe Cheema MD [address] [facility] [place] [address] 1 mo follow up [facility] Comment on above: 1 mo follow up Start: 10-18-2024 End: 01-17-2025 Platelets [#/volume] in Blood PLATELET COUNT Lab Routine Thrombocytopenia Expected: 10/18/2024, Expires: 01/17/2025 [facility] Work Phone: Comment on above: Expected: 10/18/2024, Expires: Start: 10-18-2024 End: 10-18-2024 ambulatory 10/18/2024 7:30 AM EDT Results Only [facility] Station [address] [facility] [place] [address] [facility] Start: 10-14-2024 DIABETES SCREEN DIABETES SCREEN [facility] Start: 10-14-2024 End: 10-14-2024 Patient encounter procedure 10/14/2024 7:40 AM EDT Office Visit [facility] [address] [facility] [place] [address] Susan Kerr, AIRPLANE FLIGHT ATTENDANT.CENTER MEDICAL DIRECTOR [address] [facility] [place] [address] 1 month BP check [facility] Comment on above: 1 month BP check Start: 09-23-2024 End: 09-23-2024 Patient encounter procedure 09/23/2024 9:40 AM EDT Office Visit [facility] [address] [facility] [place] [address] Chloe Cheema MD [address] [facility] [place] [address] Switch meds. See TE 09/19/24. Family Breonna Martinez Comment on above: Switch meds. See TE 09/19/24. Start: 09-11-2024 End: 12-11-2024 CBC W Auto Differential panel - Blood COMPLETE BLOOD COUNT AND DIFFERENTIAL Lab Routine Fatigue, unspecified type Expected: 09/11/2024, Expires: 12/11/2024 [facility] Comment on above: Expected: 09/11/2024, Expires: Start: 09-11-2024 End: 12-11-2024 Comprehensive metabolic 2000 panel - Serum or Plasma COMPREHENSIVE METABOLIC PANEL Lab Routine Fatigue, unspecified type Expected: 09/11/2024, Expires: 12/11/2024 [facility] Comment on above: Expected: 09/11/2024, Expires: Start: 09-11-2024 End: 12-11-2024 Erythrocyte sedimentation rate SEDIMENTATION RATE, WESTERGREN Lab Routine Fatigue, unspecified type Expected: 09/11/2024, Expires: 12/11/2024 [facility] Comment on above: Expected: 09/11/2024, Expires: Start: 09-11-2024 End: 12-11-2024 Lipid 1996 panel - Serum or Plasma LIPID PANEL, FASTING Lab Routine Hyperlipidemia, unspecified hyperlipidemia type Expected: 09/11/2024, Expires: 12/11/2024 [facility] Comment on above: Expected: 09/11/2024, Expires: Start: 09-11-2024 End: 12-11-2024 T4/FTI/T4U T4/FTI/T4U Lab Routine Fatigue, unspecified type Expected: 09/11/2024, Expires: 12/11/2024 [facility] Comment on above: Expected: 09/11/2024, Expires: Start: 09-11-2024 End: 12-11-2024 Thyrotropin [Units/volume] in Serum or Plasma THYROID STIMULATING HORMONE Lab Routine Fatigue, unspecified type Expected: 09/11/2024, Expires: 12/11/2024 [facility] Work Phone: Comment on above: Expected: 09/11/2024, Expires: Start: 09-11-2024 End: 09-11-2024 Patient encounter procedure [facility] [place] Comment on above: 6 month follow up 6 month follow up/re view for c-pap supplies Start: 09-05-2024 Hepatitis B surface antibody level LDL Cholesterol [facility] Start: 09-04-2024 Annual PCP Team Chronic Disease Visit Annual PCP Team Chronic Disease Visit [facility] Start: 07-26-2024 Annual PCP Team Chronic Disease Visit Annual PCP Team Chronic Disease Visit [facility] Start: 07-26-2024 RSV Vaccine (1 - 1-dose 60+ series) RSV Vaccine (1 - 1-dose 60+ series) [facility] Comment on above: Postponed from 2017 (Declined at t his time) Start: 07-26-2024 RSV Vaccine (1 - Risk 60-74 years 1-dose series) RSV Vaccine (1 - Risk 60-74 years 1-dose series) [facility] Comment on above: Postponed from 2017 (Declined at t his time) Start: 07-09-2024 End: 10-08-2024 Hemoglobin A1c in Blood HEMOGLOBIN A1C Lab Routine Hyperglycemia Hypokalemia Expected: 07/09/2024, Expires: 10/08/2024 [facility] Comment on above: Expected: 07/09/2024, Expires: Start: 07-09-2024 End: 10-08-2024 Potassium [Moles/volume] in Serum or Plasma POTASSIUM Lab Routine Hyperglycemia Hypokalemia Expected: 07/09/2024, Expires: 10/08/2024 [facility] Work Phone: Comment on above: Expected: 07/09/2024, Expires: Start: 07-08-2024 End: 07-08-2024 Patient encounter procedure 07/08/2024 9:00 AM EST Office Visit [facility] [place] [address] [facility] [place] [address] Chloe Cheema MD [address] [facility] [place], [place] [id number] pneumonia follow up [facility] [place] Comment on above: pneumonia follow up Start: 06-24-2024 End: 09-23-2024 Basic metabolic 2000 panel - Serum or Plasma [facility] Comment on above: Expected: 06/24/2024, Expires: Start: 06-24-2024 End: 09-23-2024 CBC W Auto Differential panel - Blood [facility] Comment on above: Expected: 06/24/2024, Expires: Start: 06-24-2024 End: 06-24-2024 Patient encounter procedure 06/24/2024 9:00 AM EST Office Visit [facility] [place] [address] [facility] [place] [address] Chloe Cheema MD [address] [facility] [place] [address] recheck pneumonia [facility] Comment on above: recheck pneumonia Start: 06-19-2024 Advance Directive Discussion Advance Directive Discussion [facility] Start: 06-18-2024 Advance Directive Discussion Advance Directive Discussion [facility] Comment on above: Postponed from 06/19/2023 (Declined at t his time) Start: 06-04-2024 DIABETES SCREEN DIABETES SCREEN [facility] Start: 04-26-2024 End: 07-26-2024 Hemoglobin A1c in Blood [facility] Work Phone: Comment on above: Expected: 04/26/2024, Expires: Start: 04-25-2024 End: 07-25-2024 Comprehensive metabolic 2000 panel - Serum or Plasma [facility] Work Phone: Comment on above: Expected: 04/25/2024, Expires: Start: 04-03-2024 BP Controlled (<130/80) BP Controlled (<130/80) [facility] Start: 03-13-2024 End: 03-13-2024 Patient encounter procedure 03/13/2024 9:00 AM EDT Office Visit [facility] [place] [address] [place] [address] Chloe Cheema MD [address] [facility] [place] [address] follow up [facility] [place] Comment on above: follow up Start: 03-08-2024 Subsequent hospital visit by physician 03/08/2024 2:56 PM EDT Hospital Encounter [facility] [address] [place] [address] Left lower quadrant abdominal pain [R10.32] [facility] Comment on above: Left lower quadrant abdominal pain [R10. 32] Start: 03-08-2024 End: 06-07-2024 Bacteria identified in Urine by Culture URINE CULTURE Microbiology Routine Chronic RLQ pain Left lower quadrant abdominal pain Expected: 03/08/2024, Expires: 06/07/2024 [facility] Comment on above: Expected: 03/08/2024, Expires: Start: 03-08-2024 End: 06-07-2024 Comprehensive metabolic 2000 panel - Serum or Plasma [facility] Work Phone: Comment on above: Expected: 03/08/2024, Expires: Start: 03-08-2024 End: 06-07-2024 Urinalysis complete panel - Urine URINALYSIS, WITH MICROSCOPIC Lab Routine Chronic RLQ pain Left lower quadrant abdominal pain Expected: 03/08/2024, Expires: 06/07/2024 [facility] Comment on above: Expected: 03/08/2024, Expires: Start: 03-08-2024 End: 03-08-2024 Patient encounter procedure 03/08/2024 9:40 AM EDT Office Visit Family Breonna Martinez [address] [place] [address] Chloe Cheema MD [address] [facility] [place] [place] [id number] 6 month follow up [facility] Comment on above: 6 month follow up Start: 02-18-2024 Covid-19 Vaccine ( season) Covid-19 Vaccine ( season) [facility] Start: 02-18-2024 Influenza vaccination Influenza Vaccine (#1) [facility] Start: 01-26-2024 End: 01-26-2024 Patient encounter procedure 01/26/2024 8:00 AM EDT Office Visit [facility] [address] [facility] [place] [address] Susan Kerr APRN.CENTER MEDICAL DIRECTOR [address] [place] [address] 4 week follow up bronchitis/fatigue. possibly adjusting strattera depending. [facility] [place] Comment on above: 4 week follow up bronchitis/fatigue. pos sibly adjusting strattera depending. Start: 01-24-2024 ANNUAL PCP TEAM CHRONIC DISEASE VISIT ANNUAL PCP TEAM CHRONIC DISEASE VISIT [facility] Start: 12-22-2023 End: 12-22-2023 Patient encounter procedure 12/22/2023 9:40 AM EDT Office Visit [facility] [place] [address] [facility] [place] [address] Chloe Cheema MD [address] [facility] [place] [address] ADD Medication advice [facility] [place] Comment on above: ADD Medication advice Start: 12-20-2023 ANNUAL PCP TEAM CHRONIC DISEASE VISIT ANNUAL PCP TEAM CHRONIC DISEASE VISIT [facility] Start: 12-20-2023 End: 12-20-2023 ambulatory 12/20/2023 8:00 AM EDT [facility] [address] [facility] [place] [address] [facility] Start: 12-15-2023 ANNUAL PCP TEAM CHRONIC DISEASE VISIT ANNUAL PCP TEAM CHRONIC DISEASE VISIT [facility] Start: 12-13-2023 End: 03-13-2024 Basic metabolic 2000 panel - Serum or Plasma BASIC METABOLIC PANEL Lab Routine Hypokalemia Expected: 12/13/2023, Expires: 03/13/2024 [facility] Comment on above: Expected: 12/13/2023, Expires: Start: 11-24-2023 Covid-19 Vaccine () Covid-19 Vaccine () [facility] Start: 10-26-2023 ANNUAL PCP TEAM CHRONIC DISEASE VISIT ANNUAL PCP TEAM CHRONIC DISEASE VISIT [facility] Start: 09-27-2023 Hepatitis B surface antibody level LDL CHOLESTEROL [facility] Start: 09-23-2023 ANNUAL PCP TEAM CHRONIC DISEASE VISIT ANNUAL PCP TEAM CHRONIC DISEASE VISIT [facility] Start: 09-23-2023 COVID-19 VACCINE (4 - Booster for Pfizer series) COVID-19 VACCINE (4 - Booster for Pfizer series) [facility] Comment on above: Postponed from 06/28/2021 (Declined at t his time) Start: 09-23-2023 COVID-19 VACCINE (4 - Pfizer series) COVID-19 VACCINE (4 - Pfizer series) [facility] Comment on above: Postponed from 06/28/2021 (Declined at t his time) Start: 09-23-2023 SHINGRIX VACCINE (1 of 2) SHINGRIX VACCINE (1 of 2) [facility] Comment on above: Postponed from 09/22/2007 (Declined at t his time) Start: 09-23-2023 Urine microalbumin profile [facility] Comment on above: Postponed from 1976 (Declined at t his time) Start: 09-22-2023 Pneumococcal Vaccine: 65+ (2 of 2 - PCV) Pneumococcal Vaccine: 65+ (2 of 2 - PCV) [facility] Comment on above: Postponed from 04/19/2013 (Postponed To Appropriate Date) Postponed from 09/21 (Postponed To Appropriate Date) Start: 09-22-2023 PNEUMOCOCCAL: 65+ (2 - PCV) PNEUMOCOCCAL: 65+ (2 - PCV) [facility] Comment on above: Postponed from 04/19/2013 (Postponed To Appropriate Date) Start: 09-07-2023 End: 12-07-2023 Hemoglobin A1c in Blood HGB A1C Lab Routine Hyperglycemia Expected: 09/07/2023, Expires: 12/07/2023 [facility] Work Phone: Comment on above: Expected: 09/07/2023, Expires: Start: 09-05-2023 End: 12-05-2023 CBC W Auto Differential panel - Blood CBC + DIFF Lab Routine Fatigue, unspecified type Expected: 09/05/2023, Expires: 12/05/2023 [facility] Work Phone: Comment on above: Expected: 09/05/2023, Expires: Start: 09-05-2023 End: 12-05-2023 Comprehensive metabolic 2000 panel - Serum or Plasma COMP METABOLIC PANEL Lab Routine Fatigue, unspecified type Expected: 09/05/2023, Expires: 12/05/2023 [facility] Work Phone: Comment on above: Expected: 09/05/2023, Expires: Start: 09-05-2023 End: 12-05-2023 Lipid 1996 panel - Serum or Plasma LIPID PANEL BASIC Lab Routine Hyperlipidemia, unspecified hyperlipidemia type Expected: 09/05/2023, Expires: 12/05/2023 [facility] Work Phone: Comment on above: Expected: 09/05/2023, Expires: Start: 09-05-2023 End: 12-05-2023 Testosterone [Mass/volume] in Serum or Plasma TESTOSTERONE TOTAL Lab Routine Testosterone deficiency Fatigue, unspecified type Expected: 09/05/2023, Expires: 12/05/2023 [facility] Work Phone: Comment on above: Expected: 09/05/2023, Expires: 4 Start: 09-05-2023 End: 12-05-2023 Thyrotropin [Units/volume] in Serum or Plasma TSH BLD Lab Routine Acute constipation Expected: 09/05/2023, Expires: 12/05/2023 [facility] Work Phone: Comment on above: Expected: 09/05/2023, Expires: Start: 06-19-2023 Behavioral Health Screening Behavioral Health Screening [facility] Start: 04-20-2023 Hepatitis B surface antibody level LDL CHOLESTEROL [facility] Start: 02-17-2023 Covid-19 Vaccine () Covid-19 Vaccine () [facility] Start: 02-17-2023 Influenza vaccination [facility] Start: 01-23-2023 End: 03-25-2023 ALBUMIN/CREAT RATIO RND UR ALBUMIN/CREAT RATIO RND UR Lab Routine Recurrent UTI (urinary tract infection) Expected: 01/23/2023, Expires: 03/25/2023 [facility] Work Phone: Comment on above: Expected: 01/23/2023, Expires: Start: 01-23-2023 End: 03-25-2023 Basic metabolic 2000 panel - Serum or Plasma BASIC METABOLIC PNL Lab Routine Essential hypertension, benign Expected: 01/23/2023, Expires: 03/25/2023 [facility] Work Phone: Comment on above: Expected: 01/23/2023, Expires: 3 Start: 01-23-2023 End: 03-25-2023 Thyrotropin [Units/volume] in Serum or Plasma TSH BLD Lab Routine Fatigue, unspecified type Expected: 01/23/2023, Expires: 03/25/2023 [facility] Work Phone: Comment on above: Expected: 01/23/2023, Expires: Start: 01-23-2023 End: 03-25-2023 Urinalysis complete panel - Urine URINALYSIS, WITH MICROSCOPIC Lab Routine Recurrent UTI (urinary tract infection) Expected: 01/23/2023, Expires: 03/25/2023 [facility] Work Phone: Comment on above: Expected: 01/23/2023, Expires: Start: 12-19-2022 End: 02-18-2023 Basic metabolic 2000 panel - Serum or Plasma [facility] Work Phone: Comment on above: Expected: 12/19/2022, Expires: Start: 12-16-2022 Patient discharge [facility] Start: 12-15-2022 Following clinical pathway protocol [facility] Start: 12-15-2022 Assessment of risk of venous thromboembolism [facility] Start: 12-15-2022 Continuous positive airway pressure ventilation treatment [facility] Start: 12-15-2022 Fall prevention [facility] Start: 12-15-2022 Incentive spirometry [facility] Start: 12-15-2022 Inhalation therapy procedure [facility] Start: 12-15-2022 Insertion of catheter into peripheral vein [facility] Start: 12-15-2022 Introduction of urinary catheter [facility] Start: 12-15-2022 Measuring intake and output [facility] Start: 12-15-2022 Oxygen therapy [facility] Start: 12-15-2022 Providing care according to standard [facility] Start: 12-15-2022 Provision of activity privileges [facility] Start: 12-15-2022 Referral to service [facility] Start: 12-15-2022 [facility] Start: 12-15-2022 Verification routine [facility] Start: 12-15-2022 Admission procedure [facility] Start: 12-15-2022 Respiratory Panel (PCR) Respiratory Panel (PCR) [facility] Start: 12-15-2022 Consultation [facility] Start: 12-15-2022 Patient referral to dietitian [facility] Start: 12-14-2022 End: 12-14-2022 Blood culture [facility] Start: 12-14-2022 End: 12-14-2022 [facility] Start: 12-14-2022 Bacteria identified in Blood by Culture Blood Culture [facility] Start: 12-14-2022 Urine culture Urine Culture [facility] Start: 11-29-2022 ANNUAL PCP TEAM CHRONIC DISEASE VISIT ANNUAL PCP TEAM CHRONIC DISEASE VISIT [facility] Start: 09-22-2022 End: 11-22-2022 25-hydroxyvitamin D3 [Mass/volume] in Serum or Plasma VITAMIN D 25 HYDROXY Lab Routine Hyperlipidemia, unspecified hyperlipidemia type Coronary artery disease involving [place] coronary artery of [place] heart without angina pectoris Myalgia Disorder of bone, unspecified Expected: 09/22/2022, Expires: 11/22/2022 [facility] Work Phone: Comment on above: Expected: 09/22/2022, Expires: Start: 09-22-2022 End: 11-22-2022 C reactive protein [Mass/volume] in Serum or Plasma C-REACTIVE PROTEIN (CRP) Lab Routine Myalgia Expected: 09/22/2022, Expires: 11/22/2022 [facility] Work Phone: Comment on above: Expected: 09/22/2022, Expires: 3 Start: 09-22-2022 End: 11-22-2022 CBC W Auto Differential panel - Blood CBC + DIFF Lab Routine Essential hypertension, benign Expected: 09/22/2022, Expires: 11/22/2022 [facility] Work Phone: Comment on above: Expected: 09/22/2022, Expires: Start: 09-22-2022 End: 11-22-2022 Comprehensive metabolic 2000 panel - Serum or Plasma COMP METABOLIC PANEL Lab Routine Essential hypertension, benign Expected: 09/22/2022, Expires: 11/22/2022 [facility] Work Phone: Comment on above: Expected: 09/22/2022, Expires: 3 Start: 09-22-2022 End: 11-22-2022 Creatine kinase [Enzymatic activity/volume] in Serum or Plasma CK CREATINE KINASE Lab Routine Essential hypertension, benign Expected: 09/22/2022, Expires: 11/22/2022 [facility] Work Phone: Comment on above: Expected: 09/22/2022, Expires: 3 Start: 09-22-2022 End: 11-22-2022 Erythrocyte sedimentation rate SED RATE WESTERGREN Lab Routine Myalgia Expected: 09/22/2022, Expires: 11/22/2022 [facility] Work Phone: Comment on above: Expected: 09/22/2022, Expires: 3 Start: 09-22-2022 End: 11-22-2022 Lipid 1996 panel - Serum or Plasma LIPID PANEL BASIC Lab Routine Hyperlipidemia, unspecified hyperlipidemia type Expected: 09/22/2022, Expires: 11/22/2022 [facility] Work Phone: Comment on above: Expected: 09/22/2022, Expires: 3 Start: 2022 Pneumococcal Vaccine: 65+ (2 of 2 - PCV) Pneumococcal Vaccine: 65+ (2 of 2 - PCV) [facility] Start: 07-26-2022 ANNUAL PCP TEAM CHRONIC DISEASE VISIT ANNUAL PCP TEAM CHRONIC DISEASE VISIT [facility] Start: 06-19-2022 DEPRESSION ASSESSMENT DEPRESSION ASSESSMENT [facility] Start: 05-07-2022 [facility] Start: 04-19-2022 Medicare Annual Wellness Visit Medicare Annual Wellness Visit [facility] Start: 02-17-2022 Influenza vaccination [facility] Start: 01-28-2022 Colonoscopy COLONOSCOPY [facility] Start: 01-28-2022 COLORECTAL CANCER SCREENING COLORECTAL CANCER SCREENING [facility] Start: 01-24-2022 Colonoscopy COLONOSCOPY [facility] Start: 01-24-2022 COLORECTAL CANCER SCREENING COLORECTAL CANCER SCREENING [facility] Start: 10-14-2021 End: 12-14-2021 CBC panel - Blood by Automated count [facility] Work Phone: Comment on above: Expected: 10/14/2021, Expires: 2 Start: 10-14-2021 End: 12-14-2021 Comprehensive metabolic 2000 panel - Serum or Plasma [facility] Work Phone: Comment on above: Expected: 10/14/2021, Expires: 2 Start: 10-14-2021 End: 12-14-2021 Thyrotropin [Units/volume] in Serum or Plasma [facility] Work Phone: Comment on above: Expected: 10/14/2021, Expires: 2 Start: 10-14-2021 End: 12-14-2021 VITAMIN D 25 HYDROXY [facility] Work Phone: Comment on above: Expected: 10/14/2021, Expires: 2 Start: 08-31-2021 COVID-19 VACCINE (4 - Booster for Pfizer series) COVID-19 VACCINE (4 - Booster for Pfizer series) [facility] Start: 06-28-2021 COVID-19 VACCINE (4 - Booster for Pfizer series) COVID-19 VACCINE (4 - Booster for Pfizer series) [facility] Start: 06-19-2021 DEPRESSION ASSESSMENT DEPRESSION ASSESSMENT [facility] Start: 02-17-2021 Influenza vaccination INFLUENZA (#1) [facility] Start: 12-22-2020 Hepatitis B surface antibody level LDL CHOLESTEROL [facility] Start: 10-26-2019 FECAL OCCULT BLOOD FECAL OCCULT BLOOD [facility] Start: 10-26-2019 Screening for malignant neoplasm of colon Fecal Occult Blood [facility] Start: 05-22-2019 Adult depression screening assessment DEPRESSION SCREENING [facility] Start: 2017 RSV Vaccine (1 - 1-dose 60+ series) RSV Vaccine (1 - 1-dose 60+ series) [facility] Start: 2017 RSV Vaccine (1 - Risk 60-74 years 1-dose series) RSV Vaccine (1 - Risk 60-74 years 1-dose series) [facility] Start: 06-13-2017 End: 06-13-2017 Appointment Appointment [facility] Work Phone: Start: 12-16-2016 End: 06-01-2017 *Hepatic Function Panel *Hepatic Function Panel [facility] Work Phone: Start: 12-16-2016 End: 06-01-2017 Lipid panel [AGGREGATE] *Lipid Profile CC PCP [facility] Work Phone: Start: 12-14-2016 End: 12-14-2016 Follow Up Appt 6 months Follow Up Appt 6 months [facility] Work Phone: Start: 12-14-2016 End: 06-01-2017 Follow Up Appt Other Follow Up Appt Other [facility] Work Phone: Start: 12-14-2016 End: 12-14-2016 MMM MMM [facility] Work Phone: Start: 08-17-2016 End: 08-17-2016 Follow Up Appt 3 months Follow Up Appt 3 months [facility] Work Phone: Start: 08-17-2016 End: 08-17-2016 MMM MMM [facility] Work Phone: Start: 01-04-2016 End: 01-04-2016 Ct thorax w/dye CT Chest with Contrast [facility] Work Phone: Start: 01-04-2016 End: 01-04-2016 Echocardiography Echocardiogram (complete) [facility] Work Phone: Start: 01-04-2016 End: 01-04-2016 Electrocardiogram, complete EKG (In office) [facility] Work Phone: Start: 01-04-2016 End: 01-04-2016 Follow Up Appt Other Follow Up Appt Other [facility] Work Phone: Start: 01-04-2016 End: 01-04-2016 Nuclear stress test -exercise Nuclear stress test -exercise [facility] Work Phone: Start: 10-19-2015 End: 11-22-2016 *Hepatic Function Panel *Hepatic Function Panel [facility] Work Phone: Start: 10-19-2015 End: 11-22-2016 Lipid panel [AGGREGATE] *Lipid Profile CC PCP [facility] Work Phone: Start: 04-24-2015 End: 04-20-2015 *Hepatic Function Panel *Hepatic Function Panel [facility] Work Phone: Start: 04-24-2015 End: 04-20-2015 Lipid panel [AGGREGATE] *Lipid Profile CC PCP [facility] Work Phone: Start: 03-31-2015 End: 04-20-2015 *Hepatic Function Panel *Hepatic Function Panel [facility] Work Phone: Start: 03-31-2015 End: 03-31-2015 Follow Up Appt 6 months Follow Up Appt 6 months [facility] Work Phone: Start: 03-31-2015 End: 04-20-2015 Lipid panel [AGGREGATE] *Lipid Profile CC PCP [facility] Work Phone: Start: 03-31-2015 End: 03-31-2015 PFM PFM [facility] Work Phone: Start: 03-31-2015 End: 04-20-2015 Thyroid stimulating hormone (TSH) *TSH [facility] Work Phone: Start: 03-31-2015 End: 04-20-2015 Thyroxine (T4) *T4 (Total) [facility] Work Phone: Start: 01-08-2015 End: 01-09-2015 BNP *Brain Natriuretic Peptide BNP [facility] Work Phone: Start: 01-08-2015 End: 03-25-2015 Follow Up Appt Other Follow Up Appt Other [facility] Work Phone: Start: 09-29-2014 End: 10-22-2014 *Hepatic Function Panel *Hepatic Function Panel [facility] Work Phone: Start: 09-29-2014 [...] 6 months Follow Up Appt 6 months [facility] Work Phone: Start: 03-24-2014 End: 03-24-2014 Follow Up Appt Other Follow Up Appt Other [facility] Work Phone: Start: 03-24-2014 End: 03-24-2014 PFM PFM [facility] Work Phone: Start: 03-19-2014 End: 03-31-2014 *Hepatic Function Panel *Hepatic Function Panel [facility] Work Phone: Start: 03-19-2014 End: 03-31-2014 Lipid panel [AGGREGATE] *Lipid Profile CC PCP [facility] Work Phone: Start: 12-04-2013 End: 12-04-2013 *BMP *BMP [facility] Work Phone: Start: 12-04-2013 End: 12-04-2013 CBC W Auto Differential panel - Blood *CBC without Diff [facility] Work Phone: Start: 12-04-2013 End: 03-25-2015 Chest x-ray X-Ray, Chest, PA & Lateral [facility] Work Phone: Start: 12-04-2013 End: 12-04-2013 Coagulation factor induced.INR assay in platelet poor plasma *PT/INR [facility] Work Phone: Start: 12-04-2013 End: 03-12-2014 Electrocardiogram, complete EKG (In office) [facility] Work Phone: Start: 12-04-2013 End: 12-04-2013 Left Heart Cath Left Heart Cath [facility] Work Phone: Start: 12-02-2013 End: 12-05-2013 Stress Echocardiogram (treadmill) Stress Echocardiogram (treadmill) [facility] Phone: Start: 10-30-2013 End: 01-08-2015 Follow Up Appt Other Follow Up Appt Other [facility] Work Phone: Start: 09-04-2013 End: 09-16-2013 *Hepatic Function Panel *Hepatic Function Panel [facility] Work Phone: Start: 09-04-2013 End: 09-04-2013 Follow Up Appt 6 months Follow Up Appt 6 months [facility] Work Phone: Start: 09-04-2013 End: 01-08-2015 Follow Up Appt Other Follow Up Appt Other [facility] Work Phone: Start: 09-04-2013 End: 09-16-2013 Lipid panel [AGGREGATE] *Lipid Profile CC PCP [facility] Work Phone: Start: 09-04-2013 End: 09-04-2013 MMM MMM [employer] Work Phone: Start: 06-17-2013 End: 09-16-2013 *Hepatic Function Panel *Hepatic Function Panel [facility] Work Phone: Start: 06-17-2013 End: 09-16-2013 Lipid panel [AGGREGATE] *Lipid Profile CC PCP [employer] Work Phone: Start: 04-19-2013 PNEUMOCOCCAL (2 - PCV) PNEUMOCOCCAL (2 - PCV) [facility] Start: 01-30-2013 End: 01-30-2013 Arterial exam Arterial exam [employer] Work Phone: Start: 01-30-2013 End: 01-30-2013 Follow Up Appt 6 months Follow Up Appt 6 months [facility] Work Phone: Start: 01-30-2013 End: 01-30-2013 PFM PFM [employer] Work Phone: Start: 01-30-2013 End: 01-30-2013 Pulmonary Fuction Test - complete Pulmonary Fuction Test - complete [employer] Work Phone: Start: 12-17-2012 End: 12-17-2012 *BMP *BMP [employer] Work Phone: Start: 12-17-2012 End: 12-02-2013 CBC W Auto Differential panel - Blood *CBC without Diff [employer] Work Phone: Start: 12-17-2012 End: 12-02-2013 Chest x-ray X-Ray, Chest, PA & Lateral [employer] Work Phone: Start: 12-17-2012 End: 12-02-2013 Coagulation factor induced.INR assay in platelet poor plasma [employer] Work Phone: Start: 12-17-2012 End: 12-17-2012 Electrocardiogram, complete EKG (In office) [employer] Work Phone: Start: 12-17-2012 End: 12-02-2013 Follow Up Appt Other Follow Up Appt Other [facility] Work Phone: Start: 12-17-2012 End: 12-02-2013 Left Heart Cath Left Heart Cath [facility] Work Phone: Start: 12-17-2012 End: 12-02-2013 PFM PFM [facility] Work Phone: Start: 2012 End: 12-17-2012 *Hepatic Function Panel *Hepatic Function Panel [facility] Work Phone: Start: 2012 End: 2012 Cardiac Rehab Cardiac Rehab [facility] Work Phone: Start: 2012 End: 10-23-2012 Electrocardiogram, complete EKG (In office) [facility] Work Phone: Start: 2012 End: 2012 Follow Up Appt Other Follow Up Appt Other [facility] Work Phone: Start: 2012 End: 12-17-2012 Lipid panel [AGGREGATE] *Lipid Profile [facility] Work Phone: Start: 09-03-2012 End: 09-04-2012 *BMP *BMP [facility] Work Phone: Start: 09-03-2012 End: 09-03-2012 aPTT *PTT-Partial Thromboplastin Time [facility] Work Phone: Start: 09-03-2012 End: 09-03-2012 aPTT Coag time (PPP) *PTT-Partial Thromboplastin Time [facility] Work Phone: Start: 09-03-2012 End: 09-04-2012 CBC W Auto Differential panel - Blood *CBC without Diff [facility] Work Phone: Start: 09-03-2012 End: 09-04-2012 Chest x-ray X-Ray, Chest, PA & Lateral [facility] Work Phone: Start: 09-03-2012 End: 09-03-2012 Coagulation factor induced.INR assay in platelet poor plasma *PT/INR [facility] Work Phone: Start: 09-03-2012 End: 09-04-2012 Electrocardiogram, complete EKG (In office) [employer] Work Phone: Start: 09-03-2012 End: 2012 Follow Up Appt Other Follow Up Appt Other [employer] [facility] Work Phone: Start: 09-03-2012 End: 09-04-2012 Left Heart Cath Left Heart Cath [employer] Work Phone: Start: 09-03-2012 End: 2012 MMM MMM [employer] Work Phone: Start: 08-21-2012 End: 2012 *BMP *BMP [employer] Work Phone: Start: 08-21-2012 End: 2012 aPTT *PTT-Partial Thromboplastin Time [employer] Work Phone: Start: 08-21-2012 End: 2012 aPTT Coag time (PPP) *PTT-Partial Thromboplastin Time [employer] Work Phone: Start: 08-21-2012 End: 2012 CBC W Auto Differential panel - Blood *CBC without Diff [facility] Work Phone: Start: 08-21-2012 End: 2012 Chest x-ray X-Ray, Chest, PA & Lateral [facility] Work Phone: Start: 08-21-2012 End: 2012 Coagulation factor induced.INR assay in platelet poor plasma *PT/INR [facility] Work Phone: Start: 08-21-2012 End: 2012 Electrocardiogram, complete EKG (In office) [employer] Work Phone: Start: 08-21-2012 End: 08-21-2012 Left Heart Cath Left Heart Cath [facility] Work Phone: Start: 07-18-2012 End: 07-18-2012 Echocardiography Echocardiogram (complete) [facility] Work Phone: Start: 07-18-2012 End: 07-18-2012 Electrocardiogram, complete EKG (In office) [facility] Work Phone: Start: 07-18-2012 End: 07-18-2012 Follow Up Appt 6 months Follow Up Appt 6 months [facility] Work Phone: Start: 07-18-2012 End: 07-18-2012 Nuclear stress test -exercise Nuclear stress test -exercise [facility] Work Phone: Start: 07-18-2012 End: 07-18-2012 PFM PFM [facility] Work Phone: Start: 09-22-2007 SHINGRIX VACCINE (1 of 2) SHINGRIX VACCINE (1 of 2) [facility] Start: 2002 COLOGUARD (FIT-DNA) COLOGUARD (FIT-DNA) [facility] Start: [address] COLONOGRAPHY [facility] Start: 2002 Screening for malignant neoplasm of colon [facility] Start: 2002 SIGMOIDOSCOPY SIGMOIDOSCOPY [facility] Start: 1976 Urine microalbumin profile [facility] Start: 09-22-1975 BP CONTROLLED (<130/80) BP CONTROLLED (<130/80) [facility] Start: 09-22-1975 HIV SCREENING HIV SCREENING [facility] 24 Hour ECG [facility] Work Phone: Acetaminophen [Mass/volume] in Unspecified specimen [facility] Alanine aminotransfe rase [Enzymatic activity/volume] in Serum or Plasma [facility] Albumin [Mass/volume ] in Serum or Plasma [facility] Alkaline phosphatase [Enzymatic activity/volume] in Serum or Plasma [facility] Ambulatory ECG [facility] Amphetamines [Presen ce] in Urine by Screen method >1000 ng/mL [facility] Amphetamines [Presen ce] in Urine by Screen method >1000 ng/mL [facility] Anion gap in Serum o r Plasma [facility] Benzodiazepine measurement, urine [facility] Benzodiazepine measurement, urine [facility] Bilirubin, total measurement [facility] BUN/Creatinine ratio [facility] Calcium [Mass/volume ] in Serum or Plasma [facility] Carbon dioxide, tota l [Moles/volume] in Central venous blood [facility] Clostridioides diffi cile toxin genes [Presence] in Stool by ASHLEY with probe detection C. DIFFICILE PCR Lab Routine Diarrhea, unspecified type LLQ pain Chronic RLQ pain Ordered: 03/08/2024 [facility] Comment on above: Ordered: 03/08/2024 Cocaine measurement, urine [facility] Cocaine measurement, urine [facility] COVID & INFLUENZA A/ B & RSV PCR, ROUTINE COVID & INFLUENZA A/B & RSV PCR, ROUTINE Microbiology Routine Acute cough Ordered: 02/14/2025 [facility] Comment on above: Ordered: 02/14/2025 Creatinine [Mass/vol ume] in Serum or Plasma [facility] End: 04-07-2025 CT Abdomen and Pelvis W contrast IV [facility] Comment on above: 1 Occurrences starting 03/08/2024 until 04/07/2025 End: 01-11-2025 CTA Chest vessels WO and W contrast IV CTA CHEST (NONGATED) WO/W IVCON Radiology STAT Chest pain on breathing 1 Occurrences starting 12/13/2023 until 01/11/2025 [facility] Work Phone: Comment on above: 1 Occurrences starting 12/13/2023 until 01/11/2025 End: 01-11-2025 CTA Pulmonary arteries for pulmonary embolus W contrast IV CT CHEST W IVCON PE Radiology STAT Chest pain on breathing 1 Occurrences starting 12/13/2023 until 01/11/2025 [facility] Work Phone: Comment on above: 1 Occurrences starting 12/13/2023 until 01/11/2025 ENTERIC BACTERIAL PA AUBREE BY PCR ENTERIC BACTERIAL PANEL BY PCR Lab Routine Diarrhea, unspecified type Ordered: 03/08/2024 [facility] Comment on above: Ordered: 03/08/2024 Erythrocyte mean corpuscular volume determination [facility] Ethanol [Mass/volume ] in Serum or Plasma [facility] FECAL LACTOFERRIN/LEUKOCYTES FECAL LACTOFERRIN/LEUKOCYTES Lab Routine Diarrhea, unspecified type Ordered: 03/08/2024 [facility] Comment on above: Ordered: 03/08/2024 fentaNYL [Presence] in Urine by Screen method [facility] fentaNYL [Presence] in Urine by Screen method [facility] End: 12-31-2025 Flexible sigmoidoscopy study COLONOSCOPY DIAGNOSTIC Endoscopy Routine Rectal bleeding 1 Occurrences starting 12/31/2024 until 12/31/2025 [facility] Work Phone: Comment on above: 1 Occurrences starting 12/31/2024 until 12/31/2025 Folate [Moles/volume ] in Serum or Plasma [facility] Giardia lamblia+Cryptosporidium sp Ag [Presence] in Stool by Immunoassay CRYPTOSPORIDIUM AND GIARDIA ANTIGENS BY EIA Microbiology Routine Diarrhea, unspecified type Ordered: 03/08/2024 [facility] Comment on above: Ordered: 03/08/2024 Glucose [Mass/volume ] in Serum or Plasma [facility] Hematocrit [Volume Fraction] of Blood [facility] Hemoglobin [Mass/vol ume] in Blood [facility] Hemoglobin A1c/Hemoglobin.total in Blood [facility] Laboratory data interpretation [facility] Leukocytes [#/volume ] in Blood [facility] Magnesium [Mass/volu me] in Serum or Plasma [facility] Mean corpuscular hemoglobin concentration determination [facility] Mean corpuscular hemoglobin determination [facility] Measurement of renal function [facility] Methadone measuremen t, urine [facility] Methadone measuremen t, urine [facility] Neutrophil count [facility] Neutrophil percent differential count [facility] NM Heart Views W str ess and W radionuclide IV [facility] Work Phone: NM Heart Views W str ess and W radionuclide IV [facility] Patient Education [facility] Work Phone: Patient referral [facility] Work Phone: Phencyclidine [Prese nce] in Urine [facility] Phencyclidine [Prese nce] in Urine [facility] Platelets [#/volume] in Blood [facility] Potassium measurement [facility] Red blood cell count [facility] Red cell distributio n width determination [facility] Respiratory pathogen s DNA and RNA panel - Respiratory specimen by ASHLEY with probe detection [facility] Serum chloride measurement [facility] Sodium measurement [facility] Total protein measurement [facility] Troponin T.cardiac [Mass/volume] in Serum or Plasma by High sensitivity method [facility] Urea nitrogen [Mass/volume] in Serum or Plasma [facility] Urine cannabinoid measurement [facility] Urine cannabinoid measurement [facility] Urine opiate measurement [facility] Urine opiate measurement [facility] Work Phone: [facility] End: 07-24-2025 XR Chest PA and Lateral XR CHEST 2V FRONTAL/LAT Radiology Routine Bacterial pneumonia 1 Occurrences starting 06/24/2024 until 07/24/2025 [facility] Work Phone: Comment on above: 1 Occurrences starting 06/24/2024 until 07/24/2025 [facility] Immunizations Immunization Date Immunization Notes Care Provider [facility] 11-29-2023 pneumococcal Conjuga te, unspecified formulation Chloe Cheema MD Work Phone: [facility] Work Phone: 11-29-2023 pneumococcal conjuga te (PCV20) vaccine, 20 valent (PREVNAR 20) Chloe Cheema MD Work Phone: [facility] 07-26-2023 COVID-19 vaccine, ag e 12+ yr, season ([email or web address]) Chloe Cheema MD Work Phone: [facility] 07-26-2023 influenza (HD-IIV4) vaccine, age 65+ yr, high dose, quadrivalent, PF (FLUZONE HIGH-DOSE) Chloe Cheema MD Work Phone: [facility] 07-26-2023 influenza virus vacc ine, unspecified formulation Chloe Cheema MD Work Phone: [facility] 05-03-2021 Covid (Pfizer) Dr. Chloe marcum Work Phone: [facility] 09-14-2020 Covid (Pfizer) Dr. Chloe marcum Work Phone: [facility] 08-24-2020 Covid (Pfizer) Dr. Chloe marcum Work Phone: [facility] 07-11-2019 influenza, injectabl e, quadrivalent, preservative free [facility] 07-11-2019 influenza, seasonal, injectable Dr. Chloe Cheema Work Phone: [facility] 07-11-2019 influenza, seasonal, injectable, preservative free Oliva Gutierrez PA-C Work Phone: [facility] 07-11-2019 influenza virus vacc ine, unspecified formulation Chloe Cheema MD Work Phone: [facility] 05-01-2015 influenza, injectabl e, quadrivalent, preservative free [facility] 05-01-2015 influenza, seasonal, injectable Dr. Chloe Cheema Work Phone: [facility] 05-01-2015 influenza, seasonal, injectable, preservative free Oliva Gutierrez PA-C Work Phone: [facility] 04-29-2015 influenza, seasonal, injectable Oliva Gutierrez PA-C Work Phone: [facility] 05-20-2013 influenza virus vacc ine, unspecified formulation Oliva Gutierrez PA-C Work Phone: [facility] 04-19-[address] Chloe Cheema Work Phone: [facility] 04-19-2013 influenza, seasonal, injectable, preservative free Oliva Gutierrez PA-C Work Phone: [facility] 04-19-2012 pneumococcal polysaccharide vaccine, 23 valent Oliva Gutierrez PA-C Work Phone: [facility] 04-19-[address] Apollo Cheema Work Phone: [facility] Work Phone: 04-19-2012 pneumococcal vaccine , unspecified formulation [facility] 03-18-2011 influenza virus vacc ine, unspecified formulation Oliva Gutierrez PA-C Work Phone: [facility] Work Phone: 03-18-2011 pneumococcal polysaccharide vaccine, 23 valent Oliva Gutierrez PA-C Work Phone: [facility] Work Phone: Payers Date Payer Category Payer Self-pay [id number] 2022 [facility] [place] [id number] 2022 Unknown [employer] [place] SUPPLEMENT [id number] 2022-Present [phone] [place], [place] [address] Indemnity [id number] 2022 Unknown [id number] 2022 Medicare [id number] 2022 Medicare [id number] 2019 Private Health Insurance [employer] PPO [id number] 2019-Present [phone] [facility] [id number] [place] [address] PPO [id number] 2019 Private Health Insurance [id number] 2013 Private Health Insurance [id number] Unknown [id number] Unknown [id number] Unknown [id number] Unknown [id number] Unknown [id number] Unknown [id number] Unknown [id number] Unknown [id number] Unknown [id number] Unknown [id number] Unknown [id number] Unknown [id number] Unknown [id number] Social History Date Type Detail Facility Start: 02-12-2022 End: 02-19-2025 Tobacco smoking status NHIS Ex-smoker [facility] Work Phone: Start: 02-08-1982 End: 02-08-1987 History of tobacco use Current smoker [facility] Start: 02-08-1982 End: 02-08-1987 History of tobacco use Cigarette Smoker [facility] End: 12-03-2017 History of tobacco use Chews Tobacco [facility] Start: 09-04-2021 End: 02-14-2025 Alcohol intake Current drinker of alcohol (finding) [facility] Start: 05-24-2020 End: 09-04-2021 Alcohol intake [facility] Start: 05-04-2016 History SDOH Alcohol Comment rare [facility] Start: 09-06-2013 End: 02-12-2022 Tobacco Comment patient smoked for a few months in 2006 [facility] Start: 1955 Sex Assigned At Not on file [facility] Start: 03-29-2020 End: 12-11-2021 Exposure to SARS-CoV-2 (event) Not sure [facility] Start: 10-20-2021 End: 07-05-2023 Tobacco smoking status NJIS Unknown if ever smoked [facility] Start: 02-29-2020 Occasional [facility] Start: 02-28-2020 None [facility] Start: 02-29-2020 Spouse/ Significant Other [facility] Start: 02-29-2020 Non-smoker [facility] Start: 1955 Sex Assigned At Male [facility] Start: 11-29-2021 History SDOH Alcohol Frequency 98 [facility] Start: 11-29-2021 History SDOH Physical Activity DPW 0 [facility] Start: 11-29-2021 History SDOH Housing Unable to Pay 3 [facility] Start: 04-30-2019 End: 02-12-2022 Tobacco use and exposure User of smokeless tobacco [facility] Work Phone: Start: 12-15-2022 End: 03-08-2024 Tobacco use and exposure Former smokeless tobacco user [facility] Start: 12-19-2022 End: 11-18-2024 Alcohol intake Ex-drinker (finding) [facility] Start: 12-15-2022 Tobacco Comment patient smoked for a few months in 2006Quit chew June 2022 [facility] Start: 05-24-2020 End: 11-29-2021 Social connection and isolation panel [facility] Start: 05-20-2012 In a typical week, how many times do you talk on the telephone with family, friends, or neighbors? Patient refused [facility] Are you now , , , , never or living with a partner? Refused [facility] (I/We) worried wheth er (my/our) food would run out before (I/we) got money to buy more. DK or Refused [facility] Do you belong to any clubs or organizations such as nondenominational groups, unions, fraternal or athletic groups, or school groups? Yes [facility] Are you now , , , , never or living with a partner? [facility] How often to you hav e a drink containing alcohol? Monthly or less [facility] How many standard dr inks containing alcohol do you have on a typical day? 1 or 2 [facility] How often do you hav e 6 or more drinks on 1 occasion? Never [facility] Do you feel stress - tense, restless, nervous, or anxious, or unable to sleep at night because your mind is troubled all the time - these days [OSQ] Very much [facility] (I/We) worried wheth er (my/our) food would run out before (I/we) got money to buy more. Never true [facility] Start: 12-31-2024 Alcohol Comment occ [facility] Medical Equipment Procedure Code Equipment Code Equipment Original Text Equipment Identifier Dates Pros Penl Ams 70 0 Acc Kt - [id number] Start: 01-29-2015 Pros Penl Ams 70 0ms 18cm - [id number] Start: 01-29-2015 Pros Penl 700cx 3cm Rear Tip - [id number] Start: 01-29-2015 Pros Penl Ams 70 0ms Resvr 65ml - [id number] Start: 01-29-2015 PENILE IMPLANT FDA Start: [...] Parietex 6. 6cm Small Collagen Surgical Patch [facility] - [id number] Start: 07-19-2023 PENILE IMPLANT FDA Start: Inject 1 Each intramuscularly one time a week. Uses 4 syringes per month with testosterone injections [id number] Start: 06-11-2019 End: 06-10-2020 PENILE IMPLANT FDA Start: PENILE IMPLANT FDA Start: PENILE IMPLANT FDA Start: PENILE IMPLANT FDA Start: PENILE IMPLANT FDA Start: PENILE IMPLANT FDA Start: ([id number]) Endocardial pacing lead () [id number] FDA Start: 01-31-2025 ([id number]) Endocardial pacing lead () [id number] FDA Start: 01-31-2025 ([id number]) Dual-chamber imp lantable pacemaker, rate-responsive ()[id number] FDA Start: 01-31-2025 PENILE IMPLANT FDA Start: PENILE IMPLANT FDA Start: Goals Date Patient Goal Desired Activity /State Functional Status Date Assessment Result Facility 02-01-2025 Functional status Bedrest [facility] Work Phone: 12-16-2022 Functional status Ambulates;Up a d melony;Bathroom Privilege [facility] Work Phone: 01-30-2015 Are you deaf, or do you have serious difficulty hearing No 01/30/2015 8:32 AM Jany New (Rn) (Hist), RN No [facility] 01-30-2015 Are you blind, or do you have serious difficulty seeing, even when wearing glasses No 01/30/2015 8:32 AM Jany New (Rn) (Hist), RN No [facility] 01-30-2015 Do you have serious difficulty walking or climbing stairs No 01/30/2015 8:32 AM Jany New (Rn) (Hist), RN No [facility] 01-30-2015 Do you have difficul ty dressing or bathing No 01/30/2015 8:32 AM Jany New (Rn) (Hist), RN No [facility] 01-30-2015 Because of a physica l, mental, or emotional condition, do you have difficulty doing errands alone such as visiting a physician's office or shopping No 01/30/2015 8:32 AM Jany NewRn) (Hist), RN No [facility] Mental Status Date Assessment Result Facility 02-19-2025 Cognitive function Voice/Name [facility] Work Phone: 02-01-2025 Cognitive function Voice/Name [facility] Work Phone: 01-30-2025 Cognitive function Voice/Name [facility] Work Phone: 12-16-2022 Cognitive function Appropriate;Cooperativ e [facility] Work Phone: 12-15-2022 Cognitive function Level Of Cons ciousness Awake;Alert;Appropriate;Fol lows Commands [facility] Work Phone: 12-14-2022 Cognitive function Level Of Cons ciousness Awake;Alert;Appropriate;Fol lows Commands [facility] Work Phone: 05-07-2022 Cognitive function Level Of Cons ciousness Awake;Alert;Appropriate;Fol lows Commands [facility] Work Phone: 02-12-2022 Cognitive function Level Of Cons ciousness Awake;Alert;Appropriate;Fol lows Commands [facility] Work Phone: 01-30-2015 Because of a physica l, mental, or emotional condition, do you have serious difficulty concentrating, remembering, or making decisions No 01/30/2015 8:32 AM DART Jany Kruse (Rn) (Hist), RN No [facility] Clinical Notes 02-08-2007 to 02-19-2025 Note Date & Type Note Facility 02-19-2025 Consult note Note Date/Time February 19, 2025 5:05pm [facility] Medical Records Department [address] [place] [address] Consultation - Cardiology 02/19/25 [id number] MR#: [id number] Acct: [id number] Name: JERO GARZON Rep #:[id number] : 1955 69 From: Karl Vo MD PCP: Dr. Chloe Cheema MD Status:ADM I N Location: [place] [address] Assessment & Plan Assessment/Plan (1) V tach: PLAN: Patient's pacer interrogation correlated with his heart rate of 170 on hisiWmonday when he had his near syncopal spell. The patient interrogation shows that he was V sensed at 175 to 180 bpm consistent with ventricular tachycardia. This lasted approximately 30 minutes which correlates with the patient's symptoms and the timing that he expressed in the interview. The patient's LV function is known to be normal on echocardiogram and heart catheterization done January 31. He had mild coronary disease with a small diagonal branch was jailed with the previously widely patent stent in the proximal LAD. There was no other clinically significant atherosclerotic diseasedocumented in the right coronary artery or circumflex. The patient's electrolytes are within normal ranges on his exam today. The patient has not been on any unusual supplements to his knowledge. He has noted that these symptoms started when he started Wegovy. However he had documented third-degree AV block with resting first-degree AV block and left anterior fascicular block which correlated with symptoms on a monitor. He subsequent underwent permanent pacemaker implantation January 31, 2025. I have reached out to electrophysiology for their opinion concerning most appropriate treatment options in this given situation. I did not see any reversible causes of his VT. He does have a history of obstructive sleep apnea but that is not new he is on no other new medical therapy. (2) Presence of cardiac pacemaker: PLAN: Patient is DDD pacemaker was placed January 31, 2025. He had normal pacer function on the check February 01, 2025. And his device detected the ventricular rate of 175 - 180 bpm at the time he was near syncopal February 15, 2025. (3) Essential hypertension: PLAN: Patient's blood pressure has been well-controlled on his current medical therapy. PLAN: Plan 1. Would recommend holding Wegovy he was due to have his shot today. 2. Recommend monitoring the patient for 48 to 72 hours on telemetry. 3. Will obtain input from the revolving inventory clerk to determine further treatment options. HPI Consult Data Date of Consult: 02/19/25 HPI Narrative Reason for Consultation: VT with near syncope. HPI Narrative: JERO GARZON, is a 69 M who presents to the emergency department after being sent in from the [facility] offices where device check revealed that with his near syncopal spell on February 15 at a football game he was inventricular tachycardia which was sustained at 175 - 180 bpm. The patient reports that his iWatch captured his heart rate at 168. It lasted for 30 to 45 minutes. He was able to lay himself down on the ground he rested for a while and then got back to his truck. He and his then went home and by the time he got back home his heart rate was down in the 70 bpm range and his blood pressure was 130 systolic on his device. Patient had complete heart block documented on a event monitor with symptoms of near syncope and dizziness. He underwent permanent pacemaker implantation with a DDD device January 31, 2025. His echocardiogram showed moderate left atrial enlargement with normal LV systolic function EF of 60% and no significant valvular heart disease. The patient underwent diagnostic left heart catheterization January 31, 2025 as well. That cath revealed the previously stented LAD was widely patent there wasa jailed diagonal vessel with an ostial 70 to 80% stenosis. The circumflex was nondominant with 50% moderate stenosis and mild diffuse distal disease the rightcoronary was dominant with a moderate 60% stenosis and mild diffuse distal disease. This was treated medically. The patient denies any anginal type symptoms. The patient does have a history of paroxysmal atrial fibrillation was cardioverted in 2022. Patient had the original atrial fibs/flutter identified by his iWatch. He has had no recurrence since that 1 episode in early 2023. His Eliquis was discontinued in December 2023 after 18 months of continuous sinus rhythm. Current pacer interrogation does not show any evidence of atrial fibrillation. Patient's pulmonary lab work shows normal renal function normal electrolytes andmagnesium slightly elevated. Patient's troponin was in the 20s and it has been this way in the past when he has been in the emergency department. This does not represent a significant increase. ECG shows an AV paced rhythm primarily atrially sensed and ventricular paced. The patient temporally correlates his symptoms starting with when he started Wegovy about 2 months ago. I cannot find anything that suggested Wegovy would be causing ventricular tachycardia outside of electrolyte abnormalities which weare not measuring any significant electrolyte abnormalities. [facility] Medical History Presence of cardiac pacemaker AV block, 3rd degree Obesity (BMI 30-39.9) Syncope Chest pain Pre-syncope Prostate infection History of cardioversion First degree heart block [...] disease) Essential hypertension Atherosclerotic heart disease of [place] coronary artery without angina pectoris Confusion Unstable [...] testosterone 4 pump transdermal DAILY low 11/23/21 01/30/25 History testosterone tamsulosin 0.4 mg capsule 0.4 mg PO DAILY prostate 05/1001/30/25 History amlodipine 5 mg tablet 10 mg (2 x 5 mg) PO DAILY ht n #90 04/08/24 01/30/25 Rx tabs esomeprazole magnesium 40 mg 40 mg PO BID reflux 10/2801/30/25 History capsule,delayed release finasteride 5 mg tablet 5 mg PO DAILY prostate 10/2801/30/25 History losartan 100 mg tablet 100 mg PO DAILY blood pressu re 10/28/24 01/30/25 History multivitamin (Daily Multi-Vitamin 1 tab PO DAILY vitam in 10/28/24 01/30/25 History tablet) oxycodone-acetaminophen 5 mg-325 1 tab PO DAILY PRN pa in 10/28/24 Unknown History mg tablet potassium chloride 10 mEq 20 meq PO DAILY supplement 0 10/28/24 01/30/25 History tablet,extended release atomoxetine 40 mg capsule 100 mg PO DAILY ADD 11/28/24 01/30/25 History semaglutide (weight loss) 0.25 0.25 mg (0.5 mL) subcut QWEEK 12/02/24 01/26/25 Rx mg/0.5 mL subcutaneous pen weight loss #2 mL injector (Groxis) ciprofloxacin HCl 500 mg tablet 500 mg PO BID infectio n 01/31/25 Unknown History Allergy/AdvReac Type Severity Reaction Status Date / Time Sulfa (Sulfonamide Allergy Unknown Verified 01/30/25 15:46 Antibiotics) Family History Mother CAD (coronary artery [...] activity do you participate in: none ROS Constitutional Constitutional: Reports as per HPI Eyes Eyes: Reports systems reviewed and no addt'l complaints, except as documented ENT HEENT: Reports systems reviewed and no addt'l complaints, except as documented Cardiovascular Cardiovascular: Reports as per HPI Respiratory/Chest Respiratory/Chest: Reports as per HPI Gastrointestinal Gastrointestinal: Reports systems reviewed and no addt'l complaints, except as documented Genitourinary Genitourinary: Reports as per HPI Musculoskeletal Musculoskeletal: Reports systems reviewed and no addt'l complaints, except as documented Integumentary Integumentary: Reports systems reviewed and no addt'l complaints, except as documented Neurologic Neurologic: Reports as per HPI Psychiatric Psychiatric: Reports systems reviewed and no addt'l complaints, except as documented Endocrine Endocrinology: Reports systems reviewed and no addt'l complaints, except as documented Hematologic/Lymphatic Hematologic/Lymphatic: Reports systems reviewed and no addt'l complaints, exceptas documented Allergic/Immunologic Allergic/Immunologic: Reports systems reviewed and no addt'l complaints, except as documented Physical Exam Const alert and oriented x3 HEENT normocephalic Eyes EOMs intact bilaterally Neck no JVD and no carotid bruits Chest inspection of chest normal Chest Narrative: Pacer pocket incision is well-healed. Chest: left pectoral incision Resp normal respiratory effort and clear to auscultation bilaterally Cardio Rate: regular rate Rhythm: regular rhythm Heart Sounds: S1 normal and S2 normal; Negative for click, gallop or murmur GI soft to palpation Extremity no pedal edema Neuro Neuro Narrative: Alert and oriented x 3 Psych mental status grossly normal Charges/Coding Visit Charges Inpatient E&M: 52928 Init Hosp L3 Objective Data Vital Signs: Vital Signs Temp Pulse Resp BP Pulse Ox O2 Del Method 97.9 F 67 13 138/73 H 97 Room Air 02/19/25 14:15 02/19/25 15:30 02/19/25 15:30 02/19/25 15:30 02/19/25 15:30 02/19/25 14:15 Oxygen Delivery Method Room Air Weight: 321 lb 10.471 oz Body Mass Index (BMI) 38.1 Lab / Micro Data Attestation: I reviewed the patient's lab results. 02/19/25 14:17 02/19/25 14:17 Labs: Laboratory Results - last 24 hr 02/19/25 14:17: WBC 6.1, RBC 5.25, Hgb 15.4, Hct 43.3, MCV 82.5, MCH 29.3, MCHC 35.6, RDW Std Deviation 38.6, RDW Coeff of Lito 12.8, Plt Count 168, MPV 11.1, Immature Gran % (Auto) 0.200, Neut % (Auto) 74.0 H, Lymph % (Auto) 14.8 L, [place]affee % (Auto) 9.6, Eos % (Auto) 1.2, Baso % (Auto) 0.2, Absolute Neuts (auto) 4.5, Absolute Lymphs (auto) 0.90, Nucleated RBC % 0, Sodium 138, Potassium 3.7, Chloride 103, Carbon Dioxide 23.2, Anion Gap 12, BUN 13, Creatinine 0.95, Estim Creat Clear Calc 119.34, Est GFR (MDRD) Non-Af 87, BUN/Creatinine Ratio 13.3, Glucose 131 H, Calcium 9.2, Magnesium 2.3 H, Troponin T High Sens 23 H D, TSH 1.110 Rhythm Strip Rhythm Strip: Pacer pacing V tracking sinus rate Rate: 66 Cardiology Labs/Tests 02/19/25 14:17: WBC 6.1, RBC 5.25, Hgb 15.4, Hct 43.3, MCV 82.5, MCH 29.3, MCHC 35.6, Plt Count 168, MPV 11.1, Immature Gran % (Auto) 0.200, Neut % (Auto) 74.0 H, Lymph % (Auto) 14.8 L, [place] % (Auto) 9.6, Eos % (Auto) 1.2, Baso % (Auto) 0.2, Absolute Neuts (auto) 4.5, Nucleated RBC % 0, Sodium 138, Potassium 3.7, Chloride 103, Carbon Dioxide 23.2, Anion Gap 12, BUN 13, Creatinine 0.95, Est GFR (MDRD) Non-Af 87, BUN/Creatinine Ratio 13.3, Glucose 131 H, Calcium 9.2, Magnesium 2.3 H Rhythm: EKG: ECHO: Stress Test: Cardiac Cath: PCI: CT Surgery: Holter monitor: EPS: PPM: CXR: Chest CT Scan: Radiography Diagnostic Testing: Radiology Impression Chest X-Ray 02/19/25 14:38 IMPRESSION: No acute abnormality Reading Location: [facility] Risk Score for UA/STEMI Assesmment (YES = 1) Risk Stratification Applicable: Yes Age > or = 65: Yes > or = 3 CAD risk factors (HTN, Hypercholesterolemia, Diabetes, family hx, current smoker): No Known CAD (Stenosis > or = 50%): Yes ASA used in past 7 days: No Severe angina (> or = 2 episodes in 24 hrs): No EKG ST change > or = 0.5mm: No Positive cardiac markers: Yes Score MELISSA Risk Score of mortality/ recurrent ischemic event over the next 14 days: 3 = 13.2% Intermediate Risk 02/19/25 1615 <Electronically signed by Karl Vo MD> Cosigner Signature (if applicable): CC: Dr. Chloe Cheema MD~ Signed ADDENDUM by Dr. Karl Vo MD on 02/19/25 at 1705 Addendum After reviewing pacemaker E grams and discussion with the EP physician would recommend that we institute beta-jacob therapy. Recommend starting metoprololsuccinate 50 mg twice daily. If the blood pressure is low would discontinue theamlodipine. Patient will need to be monitored on telemetry for 48 hours. 02/19/25 1705<Electronically signed by Karl Vo MD> Cosigner Signature (if applicable): cc: Dr. Chloe Cheema MD ~* Signed [facility] Work Phone: [phone] 168-683409-03-2025 Consult note [facility] Medical Records Department [address] [place] [address] Consultation - Cardiology 02/19/25 1542 MR#: [id number] Acct: [id number] Name: JERO GARZON Rep #:[id number] : 1955 69 From: Karl Vo MD PCP: Dr. Chloe Cheema MD Status:ADM I N Location: [place] [address] Assessment & Plan Assessment/Plan (1) V tach: PLAN: Patient's pacer interrogation correlated with his heart rate of 170 on hisiWatch Monday when he had his near syncopal spell. The patient interrogation shows that he was V sensed at 175 to 180bpm consistent with ventricular tachycardia. This lasted approximately 30 minutes which correlates w ith the patient's symptoms and the timing that he expressed in the interview. The patient's LV function is known to be normal on echocardiogram and heart catheterization done January 31. He had mild coronary disease with a small diagonal branch was jailed with the previously widely patent stent in the proximal LAD. There was no other clinically significant atherosclerotic dise asedocumented in the right coronary artery or circumflex. The patient's electrolytes are within normal ranges on his exam today. The patient has not been on any unusual supplements to his knowledge. He has noted that these symptoms started when he started Wegovy. However he had documented third-degree AV block with resting first-degree AV block and left anterior fascicular block which correlated with symptoms on a monitor. He subsequent underwent permanent pacemaker implantation January 31, 2025. I have reached out to electrophysiology for their opinion concerning most appropriate treatment options in this given situation. I did not see any reversible causes of his VT. He does have a history of obstructive sleep apnea but that is not new he is on no other new medical therapy. (2) Presence of cardiac pacemaker: PLAN: Patient is DDD pacemaker was placed January 31, 2025. He had normal pacer function on the check February 01, 2025. And his device detected the ventricular rate of 175 - 180 bpm at the time he was near syncopal February 15, 2025. (3) Essential hypertension: PLAN: Patient's blood pressure has been well-controlled on his current medical therapy. PLAN: Plan 1. Would recommend holding Wegovy he was due to have his shot today. 2. Recommend monitoring the patient for 48 to 72 hours on telemetry. 3. Will obtain input from the revolving inventory clerk to determine further treatment options. HPI Consult Data Date of Consult: 02/19/25 HPI Narrative Reason for Consultation: VT with near syncope. HPI Narrative: JERO GARZON, is a 69 M who presents to the emergency department after being sent in from the [facility] offices where device check revealed that with his near syncopal spell on February 15 at a football game he was inventricular tachycardia which was sustained at 175 - 180 bpm. The patient reports that his iWatch captured his heart rate at 168. It lasted for 30 to 45 minutes. He was able to lay himself down on the ground he rested for a while and then got back to his truck. He and his then went home and by the time he got back home his heart rate was down in the 70 bpm range and his blood pressure was 130 systolic on his device. Patient had complete heart block documented on a event monitor with symptoms of near syncope and dizziness. He underwent permanent pacemaker implantation with a DDD device January 31, 2025. His echocardiogram showed moderate left atrial enlargement with normal LV systolic function EF of 60% and no significant valvular heart disease. The patient underwent diagnostic left heart catheterization January 31, 2025 as well. That cath revealed the previously stented LAD was widely patent there wasa jailed diagonal vessel with an ostial 70 to 80% stenosis. The circumflex was nondominant with 50% moderate stenosis and mild diffuse distaldisease the rightcoronary was dominant with a moderate 60% stenosis and mild diffuse distal disease. This was treated medically. The patient denies any anginal type symptoms. The patient does have a history of paroxysmal atrial fibrillation was cardioverted in 2022. Patienthad the original atrial fibs/flutter identified by his iWatch. He has had no recurrence since that 1 episode in early 2022. His Eliquis was discontinued in December 2023 after 18 months of continuous sinus rhythm. Current pacer interrogation does not show any evidence of atrial fibrillation. Patient's pulmonary lab work shows normal renal function normal electrolytes andmagnesium slightly elevated. Patient's troponin was in the 20s and it has been this way in the past when he has been inthe emergency department. This does not represent a significant increase. ECG shows an AV paced rhythm primarily atrially sensed and ventricular paced. The patient temporally correlates his symptoms starting with when he started Wegovy about 2 months ago. I cannot find anything that suggested Wegovy would be causing ventricular tachycardia outside of electrolyte abnormalities which weare not measuring any significant electrolyte abnormalities. [facility] Medical History Presence of cardiac pacemaker AV block, 3rd degree Obesity (BMI 30-39.9) Syncope Chest pain Pre-syncope Prostate infection History of cardioversion First degree heart block [...] disease) Essential hypertension Atherosclerotic heart disease of [place] coronary artery without angina pectoris Confusion Unstable [...] testosterone 4 pump transdermal DAILY low 11/23/21 01/30/25 History testosterone tamsulosin 0.4 mg capsule 0.4 mg PO DAILY prostate 05/1001/30/25 History amlodipine 5 mg tablet 10 mg (2 x 5 mg) PO DAILY ht n #90 04/08/24 01/30/25 Rx tabs esomeprazole magnesium 40 mg 40 mg PO BID reflux 10/2801/30/25 History capsule,delayed release finasteride 5 mg tablet 5 mg PO DAILY prostate 10/2801/30/25 History losartan 100 mg tablet 100 mg PO DAILY blood pressu re 10/28/24 01/30/25 History multivitamin (Daily Multi-Vitamin 1 tab PO DAILY vitam in 10/28/24 01/30/25 History tablet) oxycodone-acetaminophen 5 mg-325 1 tab PO DAILY PRN pa in 10/28/24 Unknown History mg tablet potassium chloride 10 mEq 20 meq PO DAILY supplement 0 10/28/24 01/30/25 History tablet,extended release atomoxetine 40 mg capsule 100 mg PO DAILY ADD 11/28/24 01/30/25 History semaglutide (weight loss) 0.25 0.25 mg (0.5 mL) subcut QWEEK 12/02/24 01/26/25 Rx mg/0.5 mL subcutaneous pen weight loss #2 mL injector ([place]) ciprofloxacin HCl 500 mg tablet 500 mg PO BID infectio n 01/31/25 Unknown History Allergy/AdvReac Type Severity Reaction Status Date / Time Sulfa (Sulfonamide Allergy Unknown Verified 01/30/25 15:46 Antibiotics) Family History Mother CAD (coronary artery [...] activity do you participate in: none ROS Constitutional Constitutional: Reports as per HPI Eyes Eyes: Reports systems reviewed and no addt'l complaints, except as documented ENT HEENT: Reports systems reviewed and no addt'l complaints, except as documented Cardiovascular Cardiovascular: Reports as per HPI Respiratory/Chest Respiratory/Chest: Reports as per HPI Gastrointestinal Gastrointestinal: Reports systems reviewed and no addt'l complaints, except as documented Genitourinary Genitourinary: Reports as per HPI Musculoskeletal Musculoskeletal: Reports systems reviewed and no addt'l complaints, except as documented Integumentary Integumentary: Reports systems reviewed and no addt'l complaints, except as documented Neurologic Neurologic: Reports as per HPI Psychiatric Psychiatric: Reports systems reviewed and no addt'l complaints, except as documented Endocrine Endocrinology: Reports systems reviewed and no addt'l complaints, except as documented Hematologic/Lymphatic Hematologic/Lymphatic: Reports systems reviewed and no addt'l complaints, exceptas documented Allergic/Immunologic Allergic/Immunologic: Reports systems reviewed and no addt'l complaints, except as documented Physical Exam Const alert and oriented x3 HEENT normocephalic Eyes EOMs intact bilaterally Neck no JVD and no carotid bruits Chest inspection of chest normal Chest Narrative: Pacer pocket incision is well-healed. Chest: left pectoral incision Resp normal respiratory effort and clear to auscultation bilaterally Cardio Rate: regular rate Rhythm: regular rhythm Heart Sounds: S1 normal and S2 normal; Negative for click, gallop or murmur GI soft to palpation Extremity no pedal edema Neuro Neuro Narrative: Alert and oriented x 3 Psych mental status grossly normal Charges/Coding Visit Charges Inpatient E&M: 82766 Init Hosp L3 Objective Data Vital Signs: Vital Signs Temp Pulse Resp BP Pulse Ox O2 Del Method 97.9 F 67 13 138/73 H 97 Room Air 02/19/25 14:15 02/19/25 15:30 02/19/25 15:30 02/19/25 15:30 02/19/25 15:30 02/19/25 14:15 Oxygen Delivery Method Room Air Weight: 321 lb 10.471 oz Body Mass Index (BMI) 38.1 Lab / Micro Data Attestation: I reviewed the patient's lab results. 02/19/25 14:17 02/19/25 14:17 Labs: Laboratory Results - last 24 hr 02/19/25 14:17: WBC 6.1, RBC 5.25, Hgb 15.4, Hct 43.3, MCV 82.5, MCH 29.3, MCHC 35.6, RDW Std Deviation 38.6, RDW Coeff of Lito 12.8, Plt Count 168, MPV 11.1, Immature Gran % (Auto) 0.200, Neut % (Auto) 74.0 H, Lymph % (Auto) 14.8 L, [place]af[place] % (Auto) 9.6, Eos % (Auto) 1.2, Baso % (Auto) 0.2, Absolute Neuts (auto) 4.5, Absolute Lymphs (auto) 0.90, Nucleated RBC % 0, Sodium 138, Potassium 3.7, [id number], Carbon Dioxide 23.2, Anion Gap 12, BUN 13, Creatinine 0.95, Estim Creat Clear Calc 119.34, EstGFR (MDRD) Non-Af 87, BUN/Creatinine Ratio 13.3, Glucose 131 H, Calcium 9.2, Magnesium 2.3 H, Troponin T High Sens 23 H D, TSH 1.110 Rhythm Strip Rhythm Strip: Pacer pacing V tracking sinus rate Rate: 66 Cardiology Labs/Tests 02/19/25 14:17: WBC 6.1, RBC 5.25, Hgb 15.4, Hct 43.3, MCV 82.5, MCH 29.3, MCHC 35.6, Plt Count 168, MPV 11.1, Immature Gran % (Auto) 0.200, Neut % (Auto) 74.0 H, Lymph % (Auto) 14.8 L, [place] % (Auto)9.6, Eos % (Auto) 1.2, Baso % (Auto) 0.2, Absolute Neuts (auto) 4.5, Nucleated RBC % 0, Sodium 138,Potassium 3.7, Chloride 103, Carbon Dioxide 23.2, Anion Gap 12, BUN 13, Creatinine 0.95, Est GFR (MDRD) Non-Af 87, BUN/Creatinine Ratio 13.3, Glucose 131 H, Calcium 9.2, Magnesium 2.3 H Rhythm: EKG: ECHO: Stress Test: Cardiac Cath: PCI: CT Surgery: Holter monitor: EPS: PPM: CXR: Chest CT Scan: Radiography Diagnostic Testing: Radiology Impression Chest X-Ray 02/19/25 14:38 IMPRESSION: No acute abnormality Reading Location: [facility] Risk Score for UA/STEMI Assesmment (YES = 1) Risk Stratification Applicable: Yes Age > or = 65: Yes > or = 3 CAD risk factors (HTN, Hypercholesterolemia, Diabetes, family hx, current smoker): No Known CAD (Stenosis > or = 50%): Yes ASA used in past 7 days: No Severe angina (> or = 2 episodes in 24 hrs): No EKG ST change > or = 0.5mm: No Positive cardiac markers: Yes Score MELISSA Risk Score of mortality/ recurrent ischemic event over the next 14 days: 3 = 13.2% Intermediate Risk 02/19/25 1615 Cosigner Signature (if applicable): CC: Dr. Chloe Cheema MD~ Signed ADDENDUM by Dr. Karl Vo MD on 02/19/25 at 1705 Addendum After reviewing pacemaker E grams and discussion with the EP physician would recommend that we institute beta-jacob therapy. Recommend starting metoprololsuccinate 50 mg twice daily. If the blood pressure is low would discontinue theamlodipine. Patient will need to be monitored on telemetry for 48 hours. 02/19/25 1705 Cosigner Signature (if applicable): cc: Dr. Chloe Cheema MD ~* Signed [facility]09-03-2025 History and physical note [facility] Medical Records Department [address] [place] [address] H&P Exam - Hospitalist 02/19/25 1618 MR#: [id number] Acct: [id number] Name: JERO GARZON Rep #:[id number] : 1955 69 From: Kathleen Treviño MD PCP: Dr. Chloe Cheema MD Status:REG E R Location: ED HPI - General General Date of Admission: 02/19/25 Date of Service: 02/19/25 Chief Complaint: Episodes of racing heart and shortness of breath HPI Narrative JERO GARZON, is a 69-year-old male with history of coronary artery disease with stenting, , DEENA,ADHD, hypertension, GERD, BPH, low testosterone, complete heart block 2 weeks ago status post permanent pacemaker who presented to [facility] ED 02/19/2025 at the urging of the cardiology office due to runs of V. tach. In the ED temp 97.9, heart rate 75 and blood pressure 148/76, respiratory rate 17 and patient saturating 100% on room air. CBC with normal white count and hemoglobin, BMP only notable for glucose of 131, chest x- ray no acute process, mag 2.3, normal TSH and troponin of 23. Cardiology evaluated patient in the ED. Reportedly patient had a syncopal spell February 15 at a football game and was in V. tach that was sustained at 175 to 180 bpm whichlasted for 30to 40 minutes. Was able to rest on the ground and after a while he is able to get back up and go tohis truck. He was advised yesterday that patient come to the ED but he did not want to, he was called again today and ultimately presented to the ED. Cardiology recommended admission. Hospitalist contacted for admission. Patient evaluated with family member at bedside, he reports history as above, initially did endorse a blackout episode but later said he does not think he completely lost consciousness, does get episodes like this intermittently and would get these even before he had a pacemaker, notes benjamin tell when it is coming on and will be able to sit down and lay down until resolution,sometimes this lasts for minutes sometimes last for a long time likea 30 to 40 minutes on Monday.Often the episodes are brought on by exertion or stress. Notes in the past couple days he did have some pain between his shoulder blades but is not having any at present, notes that during these episodes as above he will also get short of breath and have a dry cough and nausea. Also feels very fatigued just in general. He will feel like he has a bubble in his chest and tingling in his hands. Presently having none of the symptoms. Does report he gets some constipation now that he is on Wegovy but denies any other new or acute complaints. [facility] Medical History Presence of cardiac pacemaker AV block, 3rd degree Obesity (BMI 30-39.9) Syncope Chest pain Pre-syncope Prostate infection History of cardioversion First degree heart block [...] disease) Essential hypertension Atherosclerotic heart disease of [place] coronary artery without angina pectoris Confusion Unstable [...] testosterone 4 pump transdermal DAILY low 11/23/21 01/30/25 History testosterone tamsulosin 0.4 mg capsule 0.4 mg PO DAILY prostate 05/1001/30/25 History amlodipine 5 mg tablet 10 mg (2 x 5 mg) PO DAILY ht n #90 04/08/24 01/30/25 Rx tabs esomeprazole magnesium 40 mg 40 mg PO BID reflux 10/2801/30/25 History capsule,delayed release finasteride 5 mg tablet 5 mg PO DAILY prostate 10/2801/30/25 History losartan 100 mg tablet 100 mg PO DAILY blood pressu re 10/28/24 01/30/25 History multivitamin (Daily Multi-Vitamin 1 tab PO DAILY vitam in 10/28/24 01/30/25 History tablet) oxycodone-acetaminophen 5 mg-325 1 tab PO DAILY PRN pa in 10/28/24 Unknown History mg tablet potassium chloride 10 mEq 20 meq PO DAILY supplement 0 10/28/24 01/30/25 History tablet,extended release atomoxetine 40 mg capsule 100 mg PO DAILY ADD 11/28/24 01/30/25 History semaglutide (weight loss) 0.25 0.25 mg (0.5 mL) subcut QWEEK 12/02/24 01/26/25 Rx mg/0.5 mL subcutaneous pen weight loss #2 mL injector ([employer]) ciprofloxacin HCl 500 mg tablet 500 mg PO BID infectio n 01/31/25 Unknown History Allergy/AdvReac Type Severity Reaction Status Date / Time Sulfa (Sulfonamide Allergy Unknown Verified 01/30/25 15:46 Antibiotics) Family History Mother CAD (coronary artery [...] you participate in: none ROS ROS Narrative General: Denies fever/chills HENT: Does get a headache during the episodes, denies stuffy nose, denies sore throat EYES: Denies changes in vision Resp: Short of breath and cough during the episodes, nonproductive cough Cardiac: Denies any chest pain but sometimes will get pain between his shoulder blades GI: Denies abdominal pain, struggled with some constipation, nausea during the episodes : Denies changes in urination Extremity: Denies swelling MSK: Feels somewhat generally weak and fatigued Neuro: Denies any numbness/tingling at present but during the episodes will get some tingling in his hands Heme: Denies any bleeding or bruising Skin: Denies rashes Psychiatric: No complaints voiced Vital Signs Vital Signs Vital Signs: 02/19/25 14:15 02/19/25 14:15 02/19/25 14:24 Temperature 97.9 F 97.9 F Temperature Source Oral Oral Pulse Rate 75 76 Respiratory Rate 13 17 Respiratory Effort Normal Non-Labored Respiratory Pattern Normal Blood Pressure 148/76 H 148/76 H Blood Pressure Mean 100 100 Pulse Ox 100 100 Oxygen Delivery Method Room Air Room Air 02/19/25 15:00 02/19/25 15:00 02/19/25 15:01 Temperature Temperature Source Pulse Rate 66 Respiratory Rate 14 Respiratory Effort Respiratory Pattern Blood Pressure 130/72 H 130/72 H Blood Pressure Mean 89 89 Pulse Ox 99 Oxygen Delivery Method 02/19/25 15:15 02/19/25 15:30 02/19/25 16:00 Temperature Temperature Source Pulse Rate 66 67 64 Respiratory Rate 13 13 17 Respiratory Effort Respiratory Pattern Blood Pressure 125/76 H 138/73 H 133/72 H Blood Pressure Mean 91 92 92 Pulse Ox 94 97 97 Oxygen Delivery Method Room Air 02/19/25 16:04 Temperature 98.0 F Temperature Source Pulse Rate 65 Respiratory Rate 15 Respiratory Effort Respiratory Pattern Blood Pressure 132/72 H Blood Pressure Mean 92 Pulse Ox 98 Oxygen Delivery Method Weight Weight: 145.9 kg Body Mass Index (BMI) 38.1 Physical Exam Narrative General: Alert, oriented, no apparent distress HEENT: Atraumatic, normocephalic Eyes: Anicteric, normal conjunctiva, extraocular movements grossly intact Neck: Supple Respiratory: Clear to auscultation bilaterally, normal respiratory effort Cardiovascular: Regular rate and rhythm GI: Soft, nontender, nondistended Extremities: No significant pitting edema Musculoskeletal: Moving all extremities Neuro: No overt focal neurological deficits Skin: No rashes appreciated Psych: Cooperative Results Lab / Micro Data 02/19/25 14:17 02/19/25 14:17 Labs: Laboratory Results - last 24 hr 02/19/25 14:17: WBC 6.1, RBC 5.25, Hgb 15.4, Hct 43.3, MCV 82.5, MCH 29.3, MCHC 35.6, RDW Std Deviation 38.6, RDW Coeff of Lito 12.8, Plt Count 168, MPV 11.1, Immature Gran % (Auto) 0.200, Neut % (Auto) 74.0 H, Lymph % (Auto) 14.8 L, Chaffee % (Auto) 9.6, Eos % (Auto) 1.2, Baso % (Auto) 0.2, Absolute Neuts (auto) 4.5, Absolute Lymphs (auto) 0.90, Nucleated RBC % 0, Sodium 138, Potassium 3.7, [id number], Carbon Dioxide 23.2, Anion Gap 12, BUN 13, Creatinine 0.95, Estim Creat Clear Calc 119.34, EstGFR (MDRD) Non-Af 87, BUN/Creatinine Ratio 13.3, Glucose 131 H, Calcium 9.2, Magnesium 2.3 H, Troponin T High Sens 23 H D, TSH 1.110 Rhythm Strip Rhythm Strip: Pacer pacing V tracking sinus rate Rate: 66 Imaging Radiology Impression Chest X-Ray 02/19/25 14:38 IMPRESSION: No acute abnormality Reading Location: [facility] Assessment & Plan Assessment/Plan (1) V tach: PLAN: Plan # Episodes of ventricular tachycardia -With rates 170s to 180s with ?syncopal episode (initially sounded as though he passed out but later said he did not, was symptomatic though) -Cardiology evaluated in the ED and recommended admission on telemetry and that they will reach outto EP for further treatment recommendations -Magnesium not low, potassium 3.7, TSH within normal limits -Patient to be monitored on telemetry -Cardioogy c/s -Recent echo showed mildly dilated aortic root, EF of 60% with moderate concentric LVH and no significant valvular abnormalities - Heart cath 01/31/2025 revealed the previously stented LAD was widely patent there was a jailed diagonal vessel with an ostial 70 to 80% stenosis. The circumflex was nondominant with 50% moderate stenosis and mild diffuse distal disease the right coronary was dominant with a moderate 60% stenosis and mild diffuse distal disease which was treated medically - Hold Wegovy as recommended by cardiology #Hx of CAD -w/ previous stenting -Continue home medications -Recent heart cath as above #DEENA -Continue home NIPPV - Patient reports compliance #Hypertension - Continue home medications #GERD -Continue PPI #Chronic BPH with obstruction -Continue home medications # History of ADHD -Will temporarily hold home atomoxetine given concerns for arrhythmia, may need to consider alternate agents on an outpatient basis given the presenting complaint #DVT ppx: SCDs Kathleen Treviño MD Charges/Coding Visit Charges Inpatient E&M: 24787 Init Hosp L2 02/19/25 1640 Cosigner Signature (if applicable): CC: Dr. Kathleen Treviño MD; Dr. Chloe Cheema MD~ Signed [facility]09-03-2025 Discharge summary [facility] Medical Records Department [address] [place] [address] Emergency Department Summary 02/19/25 MR#: [id number] Acct: [id number] Name: JERO GARZON Rep #:[id number] : 1955 69 From: Chapis Polo MD PCP: Dr. 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 Patient has a past medical history of third-degree heart block with recent pacemaker placement on 01/31/25. States that since then he has continued to be fatigued. He intermittently has episodes of shoulder blade pain and a feeling of a bubble in his chest. Denies chest tightness or pain. DeniesSOB. Denies abdominal pain, nausea, vomiting. His called the cardiologists office today who told him to come to the ED to be evaluateddue toepisodes of V tach on the review of his pacemaker. No chest pain, SOB or palpitations at timeof my evaluation. [facility] Medical History Presence of cardiac pacemaker AV block, 3rd degree Obesity (BMI 30-39.9) Syncope Chest pain Pre-syncope Prostate infection History of cardioversion First degree heart block [...] disease) Essential hypertension Atherosclerotic heart disease of [place] coronary artery without angina pectoris Confusion Unstable [...] testosterone 4 pump transdermal DAILY low 11/23/21 01/30/25 History testosterone tamsulosin 0.4 mg capsule 0.4 mg PO DAILY prostate 05/1001/30/25 History amlodipine 5 mg tablet 10 mg (2 x 5 mg) PO DAILY ht n #90 04/08/24 01/30/25 Rx tabs esomeprazole magnesium 40 mg 40 mg PO BID reflux 10/2801/30/25 History capsule,delayed release finasteride 5 mg tablet 5 mg PO DAILY prostate 10/2801/30/25 History losartan 100 mg tablet 100 mg PO DAILY blood pressu re 10/28/24 01/30/25 History multivitamin (Daily Multi-Vitamin 1 tab PO DAILY vitam in 10/28/24 01/30/25 History tablet) oxycodone-acetaminophen 5 mg-325 1 tab PO DAILY PRN pa in 10/28/24 Unknown History mg tablet potassium chloride 10 mEq 20 meq PO DAILY supplement 0 10/28/24 01/30/25 History tablet,extended release atomoxetine 40 mg capsule 100 mg PO DAILY ADD 11/28/24 01/30/25 History semaglutide (weight loss) 0.25 0.25 mg (0.5 mL) subcut QWEEK 12/02/24 01/26/25 Rx mg/0.5 mL subcutaneous pen weight loss #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 No acute distress HEENT: Head is normocephalic and atraumatic, sinuses nontender, pupils equal round and reactive. Nares are patent. Oropharynx and throat exams normal. Neck: Supple without lymphadenopathy nontender Cardiovascular: Regular rate and rhythm, no murmurs. No rubs or gallops. Normal S1 and S2. Pacemaker in the left upper chest wall. No erythema, warmth or fluctuance around the site. Respiratory: Clear to auscultation bilaterally. No wheezes, rales, rhonchi Abdominal: Soft and nontender. Normal bowel sounds. No guarding or rebound. Nonsurgical abdomen Extremities: No tenderness. No bruising. Normal range of motion. Normal sensation. Skin: No rash or redness. Neurological: Cranial nerves II through XII are grossly intact. Normal strengthand sensation. Normal cerebellar function The rest of the physical exam is unremarkable Const Vital Signs: 02/19/25 14:15 02/19/25 14:15 02/19/25 14:24 Temperature 97.9 F 97.9 F Temperature Source Oral Oral Pulse Rate 75 76 Respiratory Rate 13 17 Respiratory Effort Normal Non-Labored Respiratory Pattern Normal Blood Pressure 148/76 H 148/76 H Blood Pressure Mean 100 100 Pulse Ox 100 100 Oxygen Delivery Method Room Air Room Air 02/19/25 15:00 02/19/25 15:00 02/19/25 15:01 Temperature Temperature Source Pulse Rate 66 Respiratory Rate 14 Respiratory Effort Respiratory Pattern Blood Pressure 130/72 H 130/72 H Blood Pressure Mean 89 89 Pulse Ox 99 Oxygen Delivery Method 02/19/25 15:15 02/19/25 15:30 02/19/25 16:00 Temperature Temperature Source Pulse Rate 66 67 64 Respiratory Rate 13 13 17 Respiratory Effort Respiratory Pattern Blood Pressure 125/76 H 138/73 H 133/72 H Blood Pressure Mean 91 92 92 Pulse Ox 94 97 97 Oxygen Delivery Method Room Air 02/19/25 16:04 Temperature 98.0 F Temperature Source Pulse Rate 65 Respiratory Rate 15 Respiratory Effort Respiratory Pattern Blood Pressure 132/72 H Blood Pressure Mean 92 Pulse Ox 98 Oxygen Delivery Method MDM MDM MDM Narrative Medical decision making narrative: Patient is a 69-year-old male presenting to the emergency department due to abnormal findings on his pacemaker on cardiology review. Patient was seen and examined. Vitals are stable. Patient resting in bed comfortably in no acute distress. EKG here shows atrial sensed ventricular paced rhythm. Negative Sgarbossa criteria. CBC with no leukocytosis and a normal hemoglobin. BMP with mild hyponatremia of 131 otherwise no significant abnormalities. TSH and magnesium are within normal limits. Initial troponin of 23. On chart review, troponins onrecent visit 01/30 around 29-31. Will continue to trend. Expect the small increase in troponin from normal to be from his v tach episodes. Chest x-ray reviewed by myself. No opacities, pneumothorax, widened mediastinum. Radiologyread with no acute abnormalities. No episodes while here. Pacemaker interrogated here. Clinical Resource Coordinator, Dr. Vo consulted for recommendations. He evaluated the patient. Recommended admission for telemetry and he will speak with EP about recommendations for medications amio vs solatol. Discussed workuphere with patient and . Discussed recommendation for admission. He is agreeable. Patient admitted to Dr. Treviño for further management. Clinical impression V. tach Fatigue History & Record Review Discussion w/independent historian: Patient and Significant other Lab Data Attestation: I reviewed the patient's lab results. Labs: Laboratory Results - last 24 hr 02/19/25 14:17 WBC 6.1 RBC 5.25 Hgb 15.4 Hct 43.3 MCV 82.5 MCH 29.3 MCHC 35.6 RDW Std Deviation 38.6 RDW Coeff of Lito 12.8 Plt Count 168 MPV 11.1 Immature Gran % (Auto) 0.200 Neut % (Auto) 74.0 H Lymph % (Auto) 14.8 L Chaffee % (Auto) 9.6 Eos % (Auto) 1.2 Baso % (Auto) 0.2 Absolute Neuts (auto) 4.5 Absolute Lymphs (auto) 0.90 Nucleated RBC % 0 Sodium 138 Potassium 3.7 Chloride 103 Carbon Dioxide 23.2 Anion Gap 12 BUN 13 Creatinine 0.95 Estim Creat Clear Calc 119.34 Est GFR (MDRD) Non-Af 87 BUN/Creatinine Ratio 13.3 Glucose 131 H Calcium 9.2 Magnesium 2.3 H Troponin T High Sens 23 H D TSH 1.110 Radiography Chest X-Ray - ED: 2 View, Read by ED Physician, Normal, No Acute Disease and No Infiltrates Diagnostic Testing: Clinical Impression(s) from Imaging Studies Chest X-Ray 02/19/25 14:38 IMPRESSION: No acute abnormality Reading Location: [facility] Discharge Plan Triage Chief Complaint: Chest Pain ED Provider: Chapis Polo Dx/Rx/DC Orders Clinical Impression: V tach, Fatigue Prescriptions: No Action tamsulosin 0.4 mg capsule 0.4 mg PO DAILY testosterone 20.25 mg/1.25 gram (1.62 %) gel in metered-dose pump 4 pump transdermal DAILY Patient Comments: APPLY 4 PUMPS DAILY albuterol sulfate 1 INHALER inhaler 1 - 2 puff INHALATION Q6H PRN (Reason: Asthma) esomeprazole magnesium 40 mg capsule,delayed release(DR/EC) 40 mg PO BID Patient Comments: PT ONLY TAKES ONCE A DAY losartan 100 mg tablet 100 mg PO DAILY potassium chloride 10 mEq tablet extended release 20 meq PO DAILY finasteride 5 mg tablet 5 mg PO DAILY multivitamin [Daily Multi-Vitamin] Tablet 1 tab PO DAILY oxycodone-acetaminophen 5-325 mg tablet 1 tab PO DAILY PRN (Reason: pain) atomoxetine 40 mg capsule 100 mg PO DAILY ciprofloxacin HCl 500 mg tablet 500 mg PO BID amlodipine 5 mg tablet 10 mg PO DAILY Qty: 90 3RF Wegovy 0.25 mg/0.5 mL pen injector 0.25 mg subcut QWEEK Qty: 2 0RF Rx Instructions: administer weeks 1 through 4 of therapy Primary Care Provider: Chloe Cheema Referrals: Chloe Cheema MD [Primary Care Provider] - Print Language: Tajik What to do if you have Problems For any increased pain, shortness of breath, bleeding, nausea or vomiting, chestpain, or any unexpected problems, contact your Primary Care Provider. Call [facility] ([phone]) or report tothe closest Emergency Room. Call 911 if necessary. 02/19/25 1624 Cosigner Signature (if applicable): CC: Dr. Chloe Cheema MD ~ Signed [facility]09-03-2025 Radiology Diagnostic study note [facility] Imaging Services [address] [place], [place] [id number] Chest PA and Lateral MR#: [id number] Acct: [id number] Name: JERO GARZON Rep #: [id number] : 1955 M 69 From: Apolinar Tsai MD PCP: Dr. Chloe Cheema MD Status: REG E R Study:Chest PA and Lateral Date of Exam: 02/19/25 Exam# [id number] Ordering Dr: Irina Polo MD PROCEDURE: CHEST PA AND LATERAL 02/19/2025 REASON FOR EXAM: CHEST PAIN TECHNIQUE: Procedure Code: RADCXR Modality: DX Procedure: CHEST PA AND LATERAL COMPARISON: February 01, 2025 FINDINGS: Hardware: EKG leads. Lower thoracic spine neurostimulator. Heart: Normal Mediastinum: Normal Lungs: Clear. No pneumothorax or pleural effusion. Bones: Degenerative changes are identified within the thoracic spine. RAD/Chest PA and Lateral IMPRESSION: No acute abnormality Reading Location: [facility] CC: Dr. Chapis Polo MD; Dr. Chloe Cheema MD ~ Coding Spec: Signed [facility]09-03-2025 Discharge summary Author Chapis Polo [facility] Note Date/Time February 19, 2025 4:24pm [facility] Medical Records Department [address] [place] [address] Emergency Department Summary 02/19/25 MR#: [id number] Acct: [id number] Name: JERO GARZON Rep #:[id number] : 1955 69 From: Chapis Polo MD PCP: Dr. 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 Patient has a past medical history of third-degree heart block with recent pacemaker placement on 01/31/25. States that since then he has continued to be fatigued. He intermittently has episodes of shoulder blade pain and a feeling of a bubble in his chest. Denies chest tightness or pain. DeniesSOB. Denies abdominal pain, nausea, vomiting. His called the cardiologists office today who told him to come to the ED to be evaluated due toepisodes of V tach on the review of his pacemaker. No chest pain, SOB or palpitations at time of my evaluation. [facility] Medical History Presence of cardiac pacemaker AV block, 3rd degree Obesity (BMI 30-39.9) Syncope Chest pain Pre-syncope Prostate infection History of cardioversion First degree heart block [...] disease) Essential hypertension Atherosclerotic heart disease of [place] coronary artery without angina pectoris Confusion Unstable [...] testosterone 4 pump transdermal DAILY low 11/23/21 01/30/25 History testosterone tamsulosin 0.4 mg capsule 0.4 mg PO DAILY prostate 05/1001/30/25 History amlodipine 5 mg tablet 10 mg (2 x 5 mg) PO DAILY ht n #90 04/08/24 01/30/25 Rx tabs esomeprazole magnesium 40 mg 40 mg PO BID reflux 10/2801/30/25 History capsule,delayed release finasteride 5 mg tablet 5 mg PO DAILY prostate 10/2801/30/25 History losartan 100 mg tablet 100 mg PO DAILY blood pressu re 10/28/24 01/30/25 History multivitamin (Daily Multi-Vitamin 1 tab PO DAILY vitam in 10/28/24 01/30/25 History tablet) oxycodone-acetaminophen 5 mg-325 1 tab PO DAILY PRN pa in 10/28/24 Unknown History mg tablet potassium chloride 10 mEq 20 meq PO DAILY supplement 0 10/28/24 01/30/25 History tablet,extended release atomoxetine 40 mg capsule 100 mg PO DAILY ADD 11/28/24 01/30/25 History semaglutide (weight loss) 0.25 0.25 mg (0.5 mL) subcut QWEEK 12/02/24 01/26/25 Rx mg/0.5 mL subcutaneous pen weight loss #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 No acute distress HEENT: Head is normocephalic and atraumatic, sinuses nontender, pupils equal round and reactive. Nares are patent. Oropharynx and throat exams normal. Neck: Supple without lymphadenopathy nontender Cardiovascular: Regular rate and rhythm, no murmurs. No rubs or gallops. Normal S1 and S2. Pacemaker in the left upper chest wall. No erythema, warmth or fluctuance around the site. Respiratory: Clear to auscultation bilaterally. No wheezes, rales, rhonchi Abdominal: Soft and nontender. Normal bowel sounds. No guarding or rebound. Nonsurgical abdomen Extremities: No tenderness. No bruising. Normal range of motion. Normal sensation. Skin: No rash or redness. Neurological: Cranial nerves II through XII are grossly intact. Normal strengthand sensation. Normal cerebellar function The rest of the physical exam is unremarkable Const Vital Signs: 02/19/25 14:15 02/19/25 14:15 02/19/25 14:24 Temperature 97.9 F 97.9 F Temperature Source Oral Oral Pulse Rate 75 76 Respiratory Rate 13 17 Respiratory Effort Normal Non-Labored Respiratory Pattern Normal Blood Pressure 148/76 H 148/76 H Blood Pressure Mean 100 100 Pulse Ox 100 100 Oxygen Delivery Method Room Air Room Air 02/19/25 15:00 02/19/25 15:00 02/19/25 15:01 Temperature Temperature Source Pulse Rate 66 Respiratory Rate 14 Respiratory Effort Respiratory Pattern Blood Pressure 130/72 H 130/72 H Blood Pressure Mean 89 89 Pulse Ox 99 Oxygen Delivery Method 02/19/25 15:15 02/19/25 15:30 02/19/25 16:00 Temperature Temperature Source Pulse Rate 66 67 64 Respiratory Rate 13 13 17 Respiratory Effort Respiratory Pattern Blood Pressure 125/76 H 138/73 H 133/72 H Blood Pressure Mean 91 92 92 Pulse Ox 94 97 97 Oxygen Delivery Method Room Air 02/19/25 16:04 Temperature 98.0 F Temperature Source Pulse Rate 65 Respiratory Rate 15 Respiratory Effort Respiratory Pattern Blood Pressure 132/72 H Blood Pressure Mean 92 Pulse Ox 98 Oxygen Delivery Method MDM MDM MDM Narrative Medical decision making narrative: Patient is a 69-year-old male presenting to the emergency department due to abnormal findings on his pacemaker on cardiology review. Patient was seen and examined. Vitals are stable. Patient resting in bed comfortably in no acute distress. EKG here shows atrial sensed ventricular paced rhythm. Negative Sgarbossa criteria. CBC with no leukocytosis and a normal hemoglobin. BMP with mild hyponatremia of 131 otherwise no significant abnormalities. TSH and magnesium are within normal limits. Initial troponin of 23. On chart review, troponins onrecent visit 01/30 around 29-31. Will continue to trend. Expect the small increase in troponin from normal to be from his v tach episodes. Chest x-ray reviewed by myself. No opacities, pneumothorax, widened mediastinum. Radiologyread with no acute abnormalities. No episodes while here. Pacemaker interrogated here. Clinical Resource Coordinator, Dr. Vo consulted for recommendations. He evaluated the patient. Recommended admission for telemetry and he will speak with EP about recommendations for medications amio vs solatol. Discussed workuphere with patient and . Discussed recommendation for admission. He is agreeable. Patient admitted to Dr. Treviño for further management. Clinical impression V. tach Fatigue History & Record Review Discussion w/independent historian: Patient and Significant other Lab Data Attestation: I reviewed the patient's lab results. Labs: Laboratory Results - last 24 hr 02/19/25 14:17 WBC 6.1 RBC 5.25 Hgb 15.4 Hct 43.3 MCV 82.5 MCH 29.3 MCHC 35.6 RDW Std Deviation 38.6 RDW Coeff of Lito 12.8 Plt Count 168 MPV 11.1 Immature Gran % (Auto) 0.200 Neut % (Auto) 74.0 H Lymph % (Auto) 14.8 L Chaf[place] % (Auto) 9.6 Eos % (Auto) 1.2 Baso % (Auto) 0.2 Absolute Neuts (auto) 4.5 Absolute Lymphs (auto) 0.90 Nucleated RBC % 0 Sodium 138 Potassium 3.7 Chloride 103 Carbon Dioxide 23.2 Anion Gap 12 BUN 13 Creatinine 0.95 Estim Creat Clear Calc 119.34 Est GFR (MDRD) Non-Af 87 BUN/Creatinine Ratio 13.3 Glucose 131 H Calcium 9.2 Magnesium 2.3 H Troponin T High Sens 23 H D TSH 1.110 Radiography Chest X-Ray - ED: 2 View, Read by ED Physician, Normal, No Acute Disease and No Infiltrates Diagnostic Testing: Clinical Impression(s) from Imaging Studies Chest X-Ray 02/19/25 14:38 IMPRESSION: No acute abnormality Reading Location: [facility] Discharge Plan Triage Chief Complaint: Chest Pain ED Provider: Chapis Polo Dx/Rx/DC Orders Clinical Impression: V tach, Fatigue Prescriptions: No Action tamsulosin 0.4 mg capsule 0.4 mg PO DAILY testosterone 20.25 mg/1.25 gram (1.62 %) gel in metered-dose pump 4 pump transdermal DAILY Patient Comments: APPLY 4 PUMPS DAILY albuterol sulfate 1 INHALER inhaler 1 - 2 puff INHALATION Q6H PRN (Reason: Asthma) esomeprazole magnesium 40 mg capsule,delayed release(DR/EC) 40 mg PO BID Patient Comments: PT ONLY TAKES ONCE A DAY losartan 100 mg tablet 100 mg PO DAILY potassium chloride 10 mEq tablet extended release 20 meq PO DAILY finasteride 5 mg tablet 5 mg PO DAILY multivitamin [Daily Multi-Vitamin] Tablet 1 tab PO DAILY oxycodone-acetaminophen 5-325 mg tablet 1 tab PO DAILY PRN (Reason: pain) atomoxetine 40 mg capsule 100 mg PO DAILY ciprofloxacin HCl 500 mg tablet 500 mg PO BID amlodipine 5 mg tablet 10 mg PO DAILY Qty: 90 3RF Wegovy 0.25 mg/0.5 mL pen injector 0.25 mg subcut QWEEK Qty: 2 0RF Rx Instructions: administer weeks 1 through 4 of therapy Primary Care Provider: Chloe Cheema Referrals: Chloe Cheema MD [Primary Care Provider] - Print Language: Tajik What to do if you have Problems For any increased pain, shortness of breath, bleeding, nausea or vomiting, chestpain, or any unexpected problems, contact your Primary Care Provider. Call [facility] ([phone]) or report to the closest Emergency Room. Call 911 if necessary. 02/19/25 1624 <Electronically signed by Chapis Polo MD> Cosigner Signature (if applicable): CC: Dr. Chloe Cheema MD ~ Signed [facility] Work Phone: 1(795) 183-900409-02-2025 Telephone encounter Note* Telephone Encounter - Allison Tavares RN - 02/18/2025 11:52 AM EDT Patient notified of results and provider's instructions. Patient verbalizes understanding. Allison Tavares RN [facility]09-02-2025 Miscellaneous Notes* Telephone Encounter - Allison Tavares RN - 02/18/2025 11:52 AM EDT Patient notified of results and provider's instructions. Patient verbalizes understanding. Allison Tavares RN * Telephone Encounter - Isabel Cottrell MA - 02/18/2025 11:34 AM EDT Left message for patient to return call or view on adhoclabst. Isabel Cottrell Ma * Telephone Encounter - Isabel Cottrell MA - 02/18/2025 11:34 AM EDT ----- Message from Beverley Casas sent at 02/18/2025 11:10 AM EDT ----- Labs look okay. Will see you on February 28. ----- Message ----- From: Lab, Background User Sent: 02/14/2025 1:33 PM EDT To: Chloe Cheema MD * Telephone Encounter - Isabel Cottrell MA - 02/18/2025 11:31 AM EDT ----- Message from Beverley Casas sent at 02/18/2025 11:13 AM EDT ----- Negative for flu, COVID, or RSV. ----- Message ----- From: Lab, Background User Sent: 02/15/2025 2:58 AM EDT To: Chloe Cheema MD * Result Encounter Note - Beverley Casas APRN.CNP - 02/18/2025 11:13 AM EDT Negative for flu, COVID, or RSV. * Result Encounter Note - Beverley Casas APRN.CNP - 02/18/2025 11:10 AM EDT Labs look okay. Will see you on February 28. documented in this encounterReg[facility] Telephone encounter Note * Telephone Encounter - Isabel Cottrell MA - 02/18/2025 11:34 AM EDT Left message for patient to return call or view on ROKT. Isabel Cottrell Ma [facility]09-02-2025 Telephone encounter Note* Telephone Encounter - Isabel Cottrell MA - 02/18/2025 11:34 AM EDT ----- Message from Beverley Casas sent at 02/18/2025 11:10 AM EDT ----- Labs look okay. Will see you on February 28. ----- Message ----- From: Lab, Background User Sent: 02/14/2025 1:33 PM EDT To: Chloe Cheema MD [facility]09-02-2025 Telephone encounter Note* Telephone Encounter - Isabel Cottrell MA - 02/18/2025 11:31 AM EDT ----- Message from Beverley Casas sent at 02/18/2025 11:13 AM EDT ----- Negative for flu, COVID, or RSV. ----- Message ----- From: Joseph, Background User Sent: 02/15/2025 2:58 AM EDT To: Chloe Cheema MD [facility]09-02-2025 Progress note* Result Encounter Note - Beverley Casas APRN.CNP - 02/18/2025 11:13 AM EDT Negative for flu, COVID, or RSV. [facility]09-02-2025 Progress note* Result Encounter Note - Beverley Casas APRN.CNP - 02/18/2025 11:10 AM EDT Labs look okay. Will see you on February 28. [facility]08-29-2025 History of Present illness Narrative* Ashwin Hernandez RT(R) - 02/14/2025 12:30 PM EDT Radiology Service Progress Note PATIENT NAME: Jero Garzon DATE OF SERVICE: February 14, 2025 TIME: 12:11 PM PATIENT IDENTITY VERIFICATION COMPLETED USING TWO (2) IDENTIFIERS: Name and Date of confirmedby patient verbally. FALL SCREENING: Has the patient had 2 falls in the last year or 1 fall with injury or currently using an Ambulatory Assistive Device (Walker, Cane, Wheelchair, Crutches, etc.)? No PATIENT GENDER DATA: Assigned male at PATIENT RELEVANT IMPLANT DATA REVIEWED: Not Applicable PATIENT PRESENTS WITH AN IMPLANTABLE OR ATTACHED CRYOLITE RECOVERY OPERATOR: No RADIOLOGY DEPARTMENT: General X-ray: Exam(s) Completed: Chest X-Ray PERIPHERAL IV DATA: Not applicable SIGNED BY: RT Sidney(R) February 14, 2025 12:11 PM documented in this encounterRegency Hospital [facility]08-29-2025 NoteOhio[facility]08-29-2025 [id number] (AGENT OF COVID-19) RNA: Not detected INFLUENZA A RNA: Not detected INFLUENZA B RNA: Not detected RESPIRATORY SYNCYTIAL VIRUS (RSV) RNA: Not detectedPark[facility] on above:Performed By: #### [id number] ####[facility] LABCLIA [id number] THANIAAung [place] [address] [place] [id number] NoteOhiohealth Grant Medical Center08-29-2025 History of Present illness Narrative* Chloe Cheema MD - 02/14/2025 11:38 AM EDT The patient is a 69-year-old male with 3 degree AV block s/p pacemaker placement, presenting for transitional care evaluation of persistent fatigue, dyspnea, and presyncope. HPI Syncope: - Jero Garzon was hospitalized at [facility] on 01/30/2025 for syncope. - Jero experienced progressive fatigue, scotomas with exertion, and a near- syncope episode where he felt too weak to get off the floor. - Jero describes a sensation of a big bubble in the chest with tingling in the arms and neck, leading to scotomas and near-syncope. - Symptoms improved post-hospitalization but still occur multiple times daily. [place]ina has been discussing with cardiology and they are adjusting his pacemaker. - Symptoms are less frequent but equally severe; Jero requires sitting or lying down to prevent falls. - Symptoms triggered by rapid position changes; pacemaker adjusted to respond quicker. - No further syncope episodes since pacemaker placement. Chest Pain: - Jero experienced mid-sternal, pressure-like chest pain radiating to the right chest during hospitalization. - Currently denies chest pain but reports a burning sensation when attempting deep breaths, causingcough. Pacemaker: - Pacemaker placed during hospitalization due to second and third-degree heart block. - No issues with pacemaker site; Jero denies redness, warmth, drainage, or significant pain. - Follow-up with cardiology scheduled for next . - Jero reports persistent fatigue and weakness post-pacemaker placement. Dyspnea: - Jero reports chronic dyspnea, feeling unable to get enough air. - Denies hemoptysis, fever, chills, or flu-like symptoms. - History of DVTs, one post-flight and another post-PICC line placement. - Denies new leg swelling, redness, or warmth. Rectal Bleeding: - Jero reports rectal bleeding, last episode 4 days ago. Has already seen surgery/gi for same. - Believes bleeding is related to dietary intake, particularly granola. - Colonoscopy rescheduled for March 27 due to transportation issues. GI Symptoms: - Jero reports bloating and nausea during hospitalization; no other GI symptoms noted. - CT abdomen and pelvis suggested constipation. - Denies heartburn. Emotional Well-being: - Jero reports feeling pretty bad but denies emotional distress. Wants to go home and not do testing today. MEDICATIONS: Current Outpatient Medications Medication Sig semaglutide, weight loss, (WEGOVY) 1 mg/0.5 mL pen injector Inject 1 mg subcutaneously one time a week. potassium chloride (K-TAB) 10 mEq tablet Take 2 tablets by mouth once daily. atomoxetine (STRATTERA) 100 mg capsule Take 1 capsule by mouth once daily. finasteride (PROSCAR) 5 mg tablet Take 5 [...] hours as needed (FOR COUGH OR WHEEZE). No current facility-administered medications for this visit. [...] serious comorbidity present Coronary artery disease involving [place] coronary artery of [place] heart without angina pectoris Diaphragmatic hernia without [...] Right 1988 LAPS SURG CHOLECYSTECTOMY W/CHOLANGIOGRAPHY 2004 [facility] - Dr. Bales NASAL ENDOS,DIAG,UNI/ BILATERAL 12/01/2024 OPEN REPAIR OF ROTATOR CUFF ACUTE Rotator cuff repair PERCUTANEOUS CORONARY INTERVENTION 2006 stent to LAD REPAIR EPIGASTRIC HERNIA,REDUC 07/19/2023 umbilical TONSILLECTOMY PRIMARY/SECONDARY <AGE 12 Tonsillectomy FAMILY HISTORY Problem Relation Age of Onset Hypertension Mother Heart Mother Stroke Mother Allergies Mother Breast Cancer Mother Heart Father of [place] Allergies Father Allergies Sister Allergies Brother Prostate Cancer Brother Asthma Daughter Allergies Daughter SOCIAL HISTORY[1] Reviewed current medications, allergies, past medical history, surgical history, family history andsocial history today. REVIEW OF SYSTEMS GENERAL: Denies weight loss, fever, chills, or malaise; positive for fatigue. NECK: Denies lumps, goiter, pain, or significant neck swelling. RESPIRATORY: Positive for cough and shortness of breath; denies sputum production. bothers him at times to take a deep breath. CARDIOVASCULAR: Positive for chest pain (pressure-like, mid-sternal); denies leg swelling, CHF, or palpitations. no edema or leg pain or redness. GI: Positive for nausea, bloating, rectal bleeding, and constipation; denies vomiting, diarrhea, heartburn, abdominal pain, or black stool. GENITOURINARY: Denies dysuria, frequency, or incontinence. PSYCH: Denies anxiety or depression. HEMATOLOGY/LYMPHOLOGY: Denies bleeding concerns (rectal bleeding noted under GI). HEALTH MAINTENANCE: Reviewed health maintenance issues today and recommended the following in detail. DTaP,Tdap,Td Vaccine(1 - Tdap) Never done Shingrix Vaccine(1 of 2) Never done Medicare Annual Wellness Visit Never done Depression Screening due on 12/28/2024 Anxiety Screening due on 12/28/2024 LAB REVIEWED: Labs: (02/01/2025) - Hemoglobin: 14.9 - Creatinine: 0.87 (01/30/2025) - Troponin: 31 (mildly elevated), second troponin declined - Hemoglobin: 16.6 (minimally elevated) - Creatinine: 1.37 - Remainder BMP and CBC: Negative Tests: (11/21/2024) Cardiac Stress Test: No results discussed (12/07/2023) Echocardiogram: Ejection Fraction 65% Cardiac Catheterization: Pacemaker placed Imaging: - Chest X-ray: Negative - CT abdomen and pelvis: Findings consistent with constipation - CT brain: Negative - CT head and neck: Unremarkable VITALS: BP 138/82 Pulse 81 Wt (!) 144.2 kg (318 lb) SpO2 100% BMI 38.72 kg/m Last 4 Encounter Wt Readings: Date: Wt: 02/14/2025 144.2 kg (318 lb) 12/31/2024 147.4 kg (325 lb) 12/24/2024 147.4 kg (325 lb) 10/21/2024 152 kg (335 lb) PHYSICAL EXAMINATION: GENERAL: NAD, alert and oriented. SKIN: Unremarkable, no rash or skin lesions. OROPHARYNX: Lips, mucosa, and tongue normal, good dentition. No oral lesions noted. NECK: Supple, no lymphadenopathy, normal thyroid, no carotid bruits. LUNGS: Clear to auscultation bilaterally, no wheezes/rhonchi/rales. HEART: Regular rate and rhythm, no murmurs. No ectopy. EXTREMITIES: Normal, no deformities, no skin discoloration, no edema. NEURO: Awake, alert and oriented x3, cranial nerves II-XII grossly intact, normal gait, no involuntary motions. ASSESSMENT AND PLAN 1. Fatigue, unspecified type (R53.83) 2. Chest discomfort (R07.89) - Recent hospitalization for syncope, chest discomfort, and fatigue; pacemaker placed for third degree AV block. - Fatigue and chest discomfort improved post-pacemaker, but still present; symptoms may be related to pacemaker settings or other underlying conditions. - Order CBC, BMP, BNP, and TSH to evaluate for other causes of fatigue and chest discomfort. - Advised patient to seek immediate care if symptoms worsen. 3. Third degree AV block (HCC) (I44.2) - Pacemaker placed during recent hospitalization; site without erythema, warmth, or drainage. - Pacemaker settings recently adjusted by cardiology to address symptoms. - Continue close follow-up with cardiology; next appointment scheduled for next . 4. SOB (shortness of breath) (R06.02) 5. Acute cough (R05.1) 6. History of pulmonary embolism (Z86.711) - Dyspnea with burning discomfort and cough; history of two prior pulmonary emboli. He declines urgent CTA of chest today but will consent to do labs. - Order stat D-dimer and chest X-ray to rule out pulmonary embolism and pneumonia. - Discussed rationale for testing and importance of prompt evaluation; patient agreed to testing. - Advised patient to seek immediate care if symptoms worsen. 7. Class 2 severe obesity due to excess calories with serious comorbidity and body mass index (BMI)of 39.0 to 39.9 in adult (HCC) (E66.812) 8. Atrial flutter, unspecified type (HCC) (I48.92) 9. Presence of stent in coronary artery (Z95.5) (See patient after visit summary for additional instructions to patient) Chloe Cheema MD Recording using mValent software for draft documentation of the visit was discussed with the patient/authorized service center representative; all questions welcomed and answered. Patient/authorized service center representative agreed to proceed [1] Social History Tobacco Use Smoking status: Former Current packs/day: 0.00 Average packs/day: 2.0 packs/day for 5.0 years (10.0 ttl pk-yrs) Types: Cigarettes Start date: 02/08/1982 Quit date: 02/08/1987 Years since quittin.0 Smokeless tobacco: Former Types: Chew Quit date: 12/03/2017 Tobacco comments: patient smoked for a few months in 2006 Quit chew June 2022 Vaping Use Vaping status: Never Used Substance Use Topics Alcohol use: Yes Comment: occ Drug use: Not Currently Comment: marijuana in past not since 20 y/o documented in this encounterRegency [facility]08-27-2025 Procedure [facility] [address] [place], [place] [address] Pacemaker Check Date of Service: 02/12/251633 MR#: [id number] Acct: [id number] Name: JERO GARZON Rep #: [id number] : 1955 From: Jodi garcia Age/Sex: 69/M [place] [facility] [place] Signed Billing Codes PM Device Codes: 25719 PM Dev Prog Eval, Dual Assessment and Plan Assessment and Plan (1) Presence of cardiac pacemaker: Status: Chronic Comment: Maciel DPPM implanted [facility] on 01/31/25 (2) AV block, 3rd degree: Status: Chronic 02/12/25 1638 > Date _ Jodi Cota Signature: Date (if applicable) CC: ~ [facility]08-18-2025 NoteHNO ID: [id number] Author: BRANDIE LANGE LPN Service: ? Author Type: Licensed Nurse Type: Progress Notes Filed: 02/03/2025 12:00 Note Text: Patient has spoken with cardio.[facility]08-18-2025 History of Present illness Narrative* Brandie Lange LPN - 02/03/2025 11:59 AM EDT Patient has spoken with cardio. * Chloe Cheema MD - 02/03/2025 11:03 AM EDT He should talk with cardiology on that one. * Ratna Pimentel RN - 02/03/2025 10:12 AM EDT Transition Care Management (TCM) Initial Outreach PCP Update / Actionable Items [facility] Had pacer placed. He did have one episode of lightheadedness. He has tried to get ahold of cardiology with no success. He is inquiring ifhe is able to use his stimulator that he has in his back? Worried due to recently placed pacer. HRTIC TCM Home Visit Referral Source of Stratification: [facility] Hospital Admission Status: Discharged Readmission Risk Score: n/a Patient meets program referral criteria: No Patient does not qualify for High Risk TCM Home Visit program due to: Readmission Risk Score does not meet criteria Disposition: Patient does not qualify for HRTIC, will provide TCM outreach follow-up for 30-days Patient Source: [facility] ([facility]) Discharge Outreach Summary: spoke with patient, overall felling well after his hospital stay. Unfortunately there is limited information from the [facility] discharge report. He does inform me he had a pacemaker put in. He did have one episode of lightheadedness since discharge. He attempted to reach out to cardiology ( [facility] provider) has not heard back. Patient was informed if he has any episodes of chest pain/lightheadedness best to proceed back to the ED. Patient discharged from [facility] Discharge date: 02/01/2025 Admitted for: CP Readmission Risk: n/a Value-Based Contract: ACO Contact: Contact made with patient: Yes Hi, my name is Ratna Pimentel RN and I am calling from the [facility] on behalf of your Primary Care Provider, Chloe Cheema MD. I understand you were recently in the hospital, so I am calling to check in with you to ensure you are feeling well now that you are home. May I ask you a few questions related to your hospital stay and well-being? Yes Spoke to: Patient Validation: Validated the person spoken to is actively involved in the patient's care. The patient was identified by Name and Date of . Symptoms: Are you feeling about the same, better or worse since leaving the hospital? Better Medications: Do you have any questions about taking your medications, including which medications you should be on, or do you need refills on your medications? No Medication Review: Declined at this time per patient preference Discharge Instructions: Your Discharge Instructions / After Visit Summary (AVS) are important in guiding you through the recovery process. Do you have any questions related to your discharge instructions? Yes Discussed the patient's questions and/or concerns. If applicable, the appropriate Team/Provider updated in FYI box. Home Care: Were you discharged with home care? No Equipment: Do you have all the necessary equipment and supplies needed at your home? Yes The patient verbalizes understanding the use of the equipment and supplies Social: Your mental health is as important to us as your physical health. Would you mind answering a few questions on this topic? No, patient declines. Follow-Up Appointment: [Appointment / TCM Follow-up within 14 days] I would like to help you schedule a hospital follow-up virtual or telephone visit with your PCP. This is a great way for you to connect with your provider to ensure you have safely transitioned home.If you are agreeable, I will send your request to a production scheduler who will contact and assist you with that appointment. This will give you an opportunity to ask any questions or address any concerns youmay have with your PCP. Inform the patient that if they have any questions or concerns prior to that appointment, to call their PCP's office right away. Appointment Action: No action required, patient declines appointment. Education details: Patient and family educated on issues/questions related to reason for admission,transition of care topics, and follow-up needed upon discharge. Ratna Pimentel RN February 03, 2025 10:20 AM documented in this encounterRegency Hospital [facility]08-18-2025 NoteHNO ID: [id number] Author: CHLOE CHEEMA MD Service: ? Author Type: Physician Type: Progress Notes Filed: 02/03/2025 11:03 Note Text: He should talk with cardiology on that one.[facility]08-18-2025 NoteOhiohealth [facility] Center08-16-2025 Hospital Discharge instructions Additional Instructions Date of Discharge: 02/01/25[facility] Work Phone: [phone]) 229-800308-16-2025 Discharge summary [facility] Medical Records Department [address] [place] [address] Instructions for Home/Discharge Instructions 02/01/25 1348 MR#: [id number] Acct: [id number] Name: JERO GARZON Rep #:[id number] : 1955 69 From: Librado Bah DO PCP: Dr. Chloe Cheema MD Status:ADM I N Discharge Instructions DC O2, CPAP, BIPAP needs Home O2 Discharge instructions: No Dressing / Incision Discharge Activity: Return to Normal Activity May shower in (days): 2 Weight Bearing Status: Full weight bearing Additional Activity Instructions:: May shower or bathe on [day 3]. Do not scrub the incision or soak in the tub. Just wash with soap and let the water run over the incision. Gently pat dry with towel. Medications: Take your pain medication as directed. Refer to your discharge instruction sheet for a list of medications you are to take. Dressing / Incision Call your doctor if your incision/area has: Continuous Slow Oozing, Sudden Increased Bleeding, Increased Pain/ Swelling, Increased Redness, Foul Smelling Discharge and Swelling at the incision site Call your doctor if you observe: Fever of 101 or Higher, Shortness of breath, Dizziness, Fainting spells, Swelling in the ankles, Chest pain, Prolonged hiccupping and Increased palpitations (irregular heartbeat) Suture Line Care: Avoid Pulling/Pushing and Avoid Pinching/Bending Additional Dressing/Incision Instructions:: When dressing is removed, wash and dry incision. Keep covered with a light bandage if it is rubbing against your clothing. Do not cover the incision with an airtight bandage. Change the bandagedaily. Do not remove steri strips. The strips will fall off ontheir own. Follow Up Care Please Follow Up With: Sergo Perez MD Test Results: Test results from this visit will be discussed in further detail at your follow- up appointment, if applicable. Discharge Plan Admission Admit Date/Time: 01/31/25 14:42 Primary Reason for Your Visit: Third-degree AV block Attending Provider: Librado Bah Primary Care Provider: Chloe Cheema Consulting Providers: Edwin Ellington; Elle Lazcano; Renard Lopez; Roberto Muro; Flores Glover; Ashwin Pulido; Tato Rincon; Sergo Perez; Ashley Joel; Kimberley Snyder; Karl Vo; Denise Haywood; Adam Crow; Josep Ashford; Timoteo Alcantar; Hussein Gramajo NP; Dyana Alvarez; Willem Dsouza; Ashley Jacobs; Davy Lanier Discharge Orders/Prescriptions Prescriptions: Continued tamsulosin 0.4 mg capsule 0.4 mg PO DAILY testosterone 20.25 mg/1.25 gram (1.62 %) gel in metered-dose pump 4 pump transdermal DAILY Patient Comments: APPLY 4 PUMPS DAILY albuterol sulfate 1 INHALER inhaler 1 - 2 puff INHALATION Q6H PRN (Reason: Asthma) esomeprazole magnesium 40 mg capsule,delayed release(DR/EC) 40 mg PO BID Patient Comments: PT ONLY TAKES ONCE A DAY losartan 100 mg tablet 100 mg PO DAILY potassium chloride 10 mEq tablet extended release 20 meq PO DAILY finasteride 5 mg tablet 5 mg PO DAILY multivitamin [Daily Multi-Vitamin] Tablet 1 tab PO DAILY oxycodone-acetaminophen 5-325 mg tablet 1 tab PO DAILY PRN (Reason: pain) atomoxetine 40 mg capsule 100 mg PO DAILY ciprofloxacin HCl 500 mg tablet 500 mg PO BID amlodipine 5 mg tablet 10 mg PO DAILY Qty: 90 3RF Wegovy 0.25 mg/0.5 mL pen injector 0.25 mg subcut QWEEK Qty: 2 0RF Rx Instructions: administer weeks 1 through 4 of therapy Referrals / Follow Up: Sergo Perez MD [Med Staff - Active Staff] - See Referral Note (As scheduled) Chloe Cheema MD [Primary Care Provider] - Disposition Disposition (needs filled in before D/C Order can be placed): Home, Self Care 02/01/25 1355Librado Olvin [place] CC: SARA Gramajo; Dr. Renard Lopez MD; Dr. Elle Lazcano MD; Dr. Edwin Ellington MD; Dr. Davy Lanier DO; Dr. Flores Glover MD; Dr. Roberto Muro MD; Dr. Ashwin Pulido MD; Dr. Tato Rincon MD; Dr. Sergo Perez MD; Dr. Ashley Joel DO; Dr. Ashley Jacobs DO; Dr. Kimberley Snyder MD; Dr. Karl Vo MD; Dr. Denise Haywood MD; Dr. Timoteo Alcantar MD; Dr. Adam Crow MD;Dr. Josep Ashford MD; Dr. Chloe Cheema MD; ELO Wall; ELO Cervantes ~ Signed [facility]08-16-2025 [facility] Medical Records Department [address] [place] [address] Discharge Summary 02/01/25 1355 MR#: [id number] Acct: [id number] Name: JERO GARZON Rep #: [id number] : 1955 69 From: Librado Bah DO PCP: Dr. Chloe Cheema MD Status:DIS IN Location: [facility] [id number] Providers Date of Admission: 01/31/25 Date of Discharge: 02/01/25 Primary Care Physician: Dr. Chloe Cheema MD Consultations 01/30/25 23:38 Consult: Cardiology Routine Consulting Provider: [facility] Reason for Consult: Chest pain and syncope; with recent negative stress test EMERGENT Consult: No MD Notified: Yes Date Notified: 01/31/25 Time Notified: 06:50 Method of Notification: Text Method of Consult:: In-Person Reason For Visit: CHEST PAIN AND SYNCOPE/PRESYNCOPE Diagnosis Discharge Diagnosis (1) AV block, 3rd degree: Status: Acute Code(s): I44.2 - Atrioventricular block, complete Plan 1. Second-degree AV block with 2-1 heart block #2 noncardiac chest pain #3 presyncope secondary to high-grade heart block #4 syncope secondary to high-grade heart block #5 nonocclusive coronary disease Medications at Discharge Home Medications albuterol sulfate 90 mcg/actuation aerosol inhaler 1 - 2 puff inhalation Q6H PRN Asthma 07/08/19 testosterone 4 pump transdermal DAILY low testosterone 11/23/21 tamsulosin 0.4 mg capsule 0.4 mg PO DAILY prostate 04/29/22 amlodipine 5 mg tablet 10 mg (2 x 5 mg) PO DAILY htn #90 tabs 04/08/24 esomeprazole magnesium 40 mg capsule,delayed release 40 mg PO BID reflux 10/28/24 finasteride 5 mg tablet 5 mg PO DAILY prostate 10/28/24 losartan 100 mg tablet 100 mg PO DAILY blood pressure 10/28/24 multivitamin (Daily Multi-Vitamin tablet) 1 tab PO DAILY vitamin 10/28/24 oxycodone-acetaminophen 5 mg-325 mg tablet 1 tab PO DAILY PRN pain 10/28/24 potassium chloride 10 mEq tablet,extended release 20 meq PO DAILY supplement 10/28/24 atomoxetine 40 mg capsule 100 mg PO DAILY ADD 11/28/24 semaglutide (weight loss) 0.25 mg/0.5 mL subcutaneous pen injector (Wegovy) 0.25 mg (0.5 mL) subcut QWEEK weight loss #2 mL 12/02/24 ciprofloxacin HCl 500 mg tablet 500 mg PO BID infection 01/31/25 Hospital Course Operations None Procedures Cardiac catheterization and - (Cardiac pacemaker insertion) Summary of Care Provided Minutes Spent on Discharge: 31 Hospital Course: This 69-year-old white male was seen in the emergency room at [facility] with complaints of chest pain and near syncope at home. Patient also stated that he had a syncopal episode a week prior. Patient had a stress test in November of this year which was unremarkable. Workup in the emergency room showed normal troponin, there was no acute injury pattern on the patient's EKG and his chest x-ray was unremarkable except for mild bilateral basilar atelectatic changes. Patient was admitted to PCU, echocardiogram was performed which showed a normal EF, patient had periods of complete AV block with P waves and no conduction, he was seen in consultation by cardiology and underwent a cardiac catheterization and pacemaker implantation. Cardiac catheterization showed nonocclusive coronary disease there were no complications from his procedures, on 02/01/2025, patient was seen and examined: On examination [...] depressed, he does not appear agitated. Patient was discharged home in stable condition on 02/01/2025 Weight / BMI Weight Weight: 143.2 kg Body Mass Index (BMI) 38.4 ABG / Lab / Microbiology Data 02/01/25 06:47 02/01/25 06:47 Laboratory: Laboratory Results - last 24 hr 02/01/25 06:47: WBC 5.8, RBC 5.11, Hgb 14.9, Hct 42.7, MCV 83.6, MCH 29.2, MCHC 34.9, RDW Std Deviation 38.8, RDW Coeff of Lito 12.9, Plt Count 145 L, MPV 11.2, Sodium 138, Potassium 3.5, Chloride 104, Carbon Dioxide 20.5 L, Anion Gap 13, BUN 11, Creatinine 0.87, Estim Creat Clear Calc 127.45, Est GFR (MDRD) Non-Af 95, BUN/Creatinine Ratio 13.2, Glucose 109 H, Calcium 8.9, Phosphorus 3.0 Radiography Yajaira (more content not included)...[facility]08-16-2025 Discharge summary Author Sergo Perez [facility] Note Date/Time February 01, 2025 9: 47am [facility] Medical Records Department [address] [place] [address] Instructions for Home/Discharge Instructions 02/01/25 0946 MR#: [id number] Acct: [id number] Name: JERO GARZON Rep #:[id number] : 1955 69 From: Sergo Perez MD PCP: Dr. Chloe Cheema MD Status:ADM I N Discharge Instructions DC O2, CPAP, BIPAP needs Home O2 Discharge instructions: No Dressing / Incision Discharge Activity: May Not Drive May shower in (days): 2 Additional Activity Instructions:: May shower or bathe on [day 3]. Do not scrub the incision or soak in the tub. Just wash with soap and let the water run over the incision. Gently pat dry with towel. Medications: Take your pain medication as directed. Refer to your discharge instruction sheet for a list of medications you are to take. Dressing / Incision Call your doctor if your incision/area has: Continuous Slow Oozing, Sudden Increased Bleeding, Increased Pain/ Swelling, Increased Redness, Foul Smelling Discharge and Swelling at the incision site Call your doctor if you observe: Fever of 101 or Higher, Shortness of breath, Dizziness, Fainting spells, Swelling in the ankles, Chest pain, Prolonged hiccupping and Increased palpitations (irregular heartbeat) Suture Line Care: Avoid Pulling/Pushing and Avoid Pinching/Bending Remove Dressing in: do not remove dressing Additional Dressing/Incision Instructions:: When dressing is removed, wash and dry incision. Keep covered with a light bandage if it is rubbing against your clothing. Do not cover the incision with an airtight bandage. Change the bandagedaily. Do not remove steri strips. The strips will fall off on their own. Follow Up Care Please Follow Up With: Sergo Perez MD When: Pacer follow-up on February 12. The pacemaker clinic will call you for the exact time. Test Results: Test results from this visit will be discussed in further detail at your follow- up appointment, if applicable. Discharge Plan Admission Admit Date/Time: 01/31/25 14:42 Attending Provider: Librado Bah Primary Care Provider: Chloe Cheema Providers: Edwin Ellington; Elle Lazcano; Renard Lopez; Roberto Muro; Flores Glover; Ashwin Pulido; Tato Rincon; Sergo Perez; Ashley Joel; Kimberley Snyder; Karl Vo; Denise Haywood; Adam Crow; Josep Ashford; Timoteo Alcantar; Hussein Gramajo NP; Dyana Alvarez; Willem Dsouza; Ashley Jacobs; Davy Lanier Discharge Orders/Prescriptions Prescriptions: No Action tamsulosin 0.4 mg capsule 0.4 mg PO DAILY testosterone 20.25 mg/1.25 gram (1.62 %) gel in metered-dose pump 4 pump transdermal DAILY Patient Comments: APPLY 4 PUMPS DAILY albuterol sulfate 1 INHALER inhaler 1 - 2 puff INHALATION Q6H PRN (Reason: Asthma) esomeprazole magnesium 40 mg capsule,delayed release(DR/EC) 40 mg PO BID Patient Comments: PT ONLY TAKES ONCE A DAY losartan 100 mg tablet 100 mg PO DAILY potassium chloride 10 mEq tablet extended release 20 meq PO DAILY finasteride 5 mg tablet 5 mg PO DAILY multivitamin [Daily Multi-Vitamin] Tablet 1 tab PO DAILY oxycodone-acetaminophen 5-325 mg tablet 1 tab PO DAILY PRN (Reason: pain) atomoxetine 40 mg capsule 100 mg PO DAILY ciprofloxacin HCl 500 mg tablet 500 mg PO BID amlodipine 5 mg tablet 10 mg PO DAILY Qty: 90 3RF Wegovy 0.25 mg/0.5 mL pen injector 0.25 mg subcut QWEEK Qty: 2 0RF Rx Instructions: administer weeks 1 through 4 of therapy Referrals / Follow Up: Chloe Cheema MD [Primary Care Provider] - 02/01/25 1766<Electronically signed by Sergo Perez MD>Sergo Perez MD CC: SARA Gramajo; Dr. Renard Lopez MD; Dr. Elle Lazcano MD; Dr. Edwin Ellington MD; Dr. Davy Lanier DO; Dr. Flores Glover MD; Dr. Roberto Muro MD; Dr. Ashwin Pulido MD; Dr. Tato Rincon MD; Dr. Sergo Perez MD; Dr. Ashley Joel DO; Dr. Ashley Jacobs DO; Dr. Kimberley Snyder MD; Dr. Karl Vo MD; Dr. Denise Haywood MD; Dr. Timoteo Alcantar MD; Dr. Adam Crow MD;Dr. Josep Ashford MD; Dr. Chloe Cheema MD; ELO Wall; ELO Cervantes ~ Signed [facility] Work Phone: [phone] Discharge summary [facility] Medical Records Department [address] [place] [address] Instructions for Home/Discharge Instructions 02/01/25 0946 MR#: [id number] Acct: [id number] Name: JERO GARZON Rep #:[id number] : 1955 69 From: Sergo Perez MD PCP: Dr. Chloe Cheema MD Status:ADM I N Discharge Instructions DC O2, CPAP, BIPAP needs Home O2 Discharge instructions: No Dressing / Incision Discharge Activity: May Not Drive May shower in (days): 2 Additional Activity Instructions:: May shower or bathe on [day 3]. Do not scrub the incision or soak in the tub. Just wash with soap and let the water run over the incision. Gently pat dry with towel. Medications: Take your pain medication as directed. Refer to your discharge instruction sheet for a list of medications you are to take. Dressing / Incision Call your doctor if your incision/area has: Continuous Slow Oozing, Sudden Increased Bleeding, Increased Pain/ Swelling, Increased Redness, Foul Smelling Discharge and Swelling at the incision site Call your doctor if you observe: Fever of 101 or Higher, Shortness of breath, Dizziness, Fainting spells, Swelling in the ankles, Chest pain, Prolonged hiccupping and Increased palpitations (irregular heartbeat) Suture Line Care: Avoid Pulling/Pushing and Avoid Pinching/Bending Remove Dressing in: do not remove dressing Additional Dressing/Incision Instructions:: When dressing is removed, wash and dry incision. Keep covered with a light bandage if it is rubbing against your clothing. Do not cover the incision with an airtight bandage. Change the bandagedaily. Do not remove steri strips. The strips will fall off ontheir own. Follow Up Care Please Follow Up With: Sergo Perez MD When: Pacer follow-up on February 12. The pacemaker clinic will call you for the exact time. Test Results: Test results from this visit will be discussed in further detail at your follow- up appointment, if applicable. Discharge Plan Admission Admit Date/Time: 01/31/25 14:42 Attending Provider: Librado Bah Primary Care Provider: Chloe Cheema Consulting Providers: Edwin Ellington; Elle Lazcano; Renard Lopez; Roberto Muro; Flores Glover; Ashwin Pulido; Tato Rincon; Sergo Perez; Ashley Joel; Kimberley Snyder; Karl Vo; Denise Haywood; Adam Crow; Josep Ashford; Timoteo Alcantar; Hussein Gramajo NP; Dyana Alvarez; Willem Dsouza; Ashley Jacobs; Davy Lanier Discharge Orders/Prescriptions Prescriptions: No Action tamsulosin 0.4 mg capsule 0.4 mg PO DAILY testosterone 20.25 mg/1.25 gram (1.62 %) gel in metered-dose pump 4 pump transdermal DAILY Patient Comments: APPLY 4 PUMPS DAILY albuterol sulfate 1 INHALER inhaler 1 - 2 puff INHALATION Q6H PRN (Reason: Asthma) esomeprazole magnesium 40 mg capsule,delayed release(DR/EC) 40 mg PO BID Patient Comments: PT ONLY TAKES ONCE A DAY losartan 100 mg tablet 100 mg PO DAILY potassium chloride 10 mEq tablet extended release 20 meq PO DAILY finasteride 5 mg tablet 5 mg PO DAILY multivitamin [Daily Multi-Vitamin] Tablet 1 tab PO DAILY oxycodone-acetaminophen 5-325 mg tablet 1 tab PO DAILY PRN (Reason: pain) atomoxetine 40 mg capsule 100 mg PO DAILY ciprofloxacin HCl 500 mg tablet 500 mg PO BID amlodipine 5 mg tablet 10 mg PO DAILY Qty: 90 3RF Wegovy 0.25 mg/0.5 mL pen injector 0.25 mg subcut QWEEK Qty: 2 0RF Rx Instructions: administer weeks 1 through 4 of therapy Referrals / Follow Up: Chloe Cheema MD [Primary Care Provider] - 02/01/25 0947Sergo Perez MD CC: SARA Gramajo; Dr. Renard Lopez MD; Dr. Elle Lazcano MD; Dr. Edwin Ellington MD; Dr. Davy Lanier DO; Dr. Flores Glover MD; Dr. Roberto Muro MD; Dr. Ashwin Pulido MD; Dr. Tato Rincon MD; Dr. Sergo Perez MD; Dr. Ashley Joel DO; Dr. Ashley Jacobs DO; Dr. Kimberley Snyder MD; Dr. Karl Vo MD; Dr. Denise Haywood MD; Dr. Timoteo Alcantar MD; Dr. Adam Crow MD;Dr. Josep Ashford MD; Dr. Chloe Cheema MD; ELO Wall; ELO Cervantes ~ Signed [facility]08-16-2025 Radiology Diagnostic study note [facility] Imaging Services [address] [place], [place] [address] Chest 3 View MR#: [id number] Acct: [id number] Name: JERO GARZON Rep #: [id number] : 1955 M 69 From: Christian Banks MD PCP: Dr. Chloe Cheema MD Status: ADM I N Study:Chest 3 View Date of Exam: 5 Exam# [id number] Ordering Dr: Jamaal Perez MD PROCEDURE: CHEST 3 VIEW 02/01/2025 REASON FOR EXAM: POST PERMANENT ICD/PACEMAKER TECHNIQUE: CHEST 3 VIEW COMPARISON: 01/30/2025. FINDINGS: AICD is in good position. Interval appearance of mild bilateral basilar atelectatic pulmonary changes. Limited evaluation of the right lung base is limited secondary to superimposed patient's left upperextremity. There is no demonstrated pleural abnormality. Normal heart and pericardium. Normal mediastinum and whit. Normal visualized pulmonary arteries. Normal visualized aortic arch and descending thoracic aorta. Normal visualized thoracic spine. Normal visualized ribs, clavicles, and shoulders. There is no demonstrated abnormality of the visualized soft tissue structures ofthe upper abdomen. RAD/Chest 3 View IMPRESSION: Interval appearance of mild bilateral basilar atelectatic pulmonary changes. Reading Location: [facility] [address] CC: Dr. Sergo Perez MD; Dr. Chloe Cheema MD ~ Coding Spec: Signed [facility]08-15-2025 History and physical note Author Ashley Claros [facility] Note Date/Time January 31, 2025 7: 27pm [facility] Medical Records Department [address] [place] [id number] H&P Exam - Hospitalist 01/30/252216 MR#: [id number] Acct: [id number] Name: JERO GARZON Rep #:[id number] : 1955 69 From: Ashley Diaz DO PCP: Dr. Chloe Cheema MD Status:ADM I N Location: [place] [address] HPI - General General Date of Admission: 01/30/25 Date of Service: 01/30/25 Chief Complaint: Chest Pain and Near Syncope. HPI Narrative JERO GARZON, is a 69 M with a past medical history of essential hypertension;on amlodipine and losartan, former tobacco abuse (quit 1994), obesity (class II); with BMI of 38.6 this admission on semaglutide, DEENA; on CPAP, CAD; s/p LAD stent (2012), history of paroxysmal atrial fibrillation; currently not on anticoagulation, history of PE, history of TIA, ADHD; on atomoxetine, testosterone deficiency; on HRT, BPH; on finasteride plus tamsulosin, GERD; on esomeprazole twice daily, OA and history of recent chest pain workup; other negative stress test done here by [facility] in November 21, 2024 that revealed LVEF of ~65% who presents to [facility] ER complaining of chest pain and near syncope. Mr. Garzon reports his symptoms began approximately 1 week prior to admission with progressively worsening fatigue and patient stating he is having black spots in his vision when he exerts himself and feels like he is going to pass out, but he is only completely passed out once. He denies associated head injury, loss of consciousness or other significant trauma related to his syncopal event. He also admits to chest pain that he reports is midsternal, pressure-like and radiating to the Right chest wall complicated by intermittent shortness of breath that is made worse with exertion - which is nearly identicalto that it was physical and general symptom that heralded his previous LAD stentplacement. He also admits to intermittent lower abdominal bloating and nausea but no vomiting, diarrhea, constipation fever, chills, dysuria, hematuria, headache or rash. In the ER he was noted to have a very mildly elevated initialtroponin T of 31 ng/L followed by a second declining troponin T of 29 ng/L with CT scan of the abdomen/pelvis with IV contrast done in the ER that revealed no acute abnormalities of the abdomen and pelvis with diverticulosis and dense colonic stool which may suggest constipation in addition to penile implant with pump he also underwent CT brain without contrast that revealed no acute intracranial abnormality in addition to CTA of the head and neck with IV contrast that was essentially unremarkable with otherwise unremarkable laboratory studies and vital signs. He was then admitted to the PCU under observation status for ongoing care for stay that is expected to be less than [address] [facility] Medical History Prostate infection History of cardioversion First degree heart block [...] disease) Essential hypertension Atherosclerotic heart disease of [place] coronary artery without angina pectoris Confusion Unstable [...] testosterone 4 pump transdermal DAILY low 11/23/21 01/30/25 History testosterone tamsulosin 0.4 mg capsule 0.4 mg PO DAILY prostate 05/1001/30/25 History amlodipine 5 mg tablet 10 mg (2 x 5 mg) PO DAILY ht n #90 04/08/24 01/30/25 Rx tabs esomeprazole magnesium 40 mg 40 mg PO BID 10/28/24 History capsule,delayed release finasteride 5 mg tablet 5 mg PO DAILY 10/28/2401/30 History losartan 100 mg tablet 100 mg PO DAILY 10/28/24 History multivitamin (Daily Multi-Vitamin 1 tab PO DAILY 10/2801/30/25 History tablet) oxycodone-acetaminophen 5 mg-325 1 tab PO DAILY PRN pa in 10/28/24 Unknown History mg tablet potassium chloride 10 mEq 20 meq PO DAILY 10/28/24 History tablet,extended release atomoxetine 40 mg capsule 100 mg PO DAILY 11/28/24 History semaglutide (weight loss) 0.25 0.25 mg (0.5 mL) subcut QWEEK #2 mL 12/02/24 01/26/25 Rx mg/0.5 mL subcutaneous pen injector (Wegovy) Allergy/AdvReac Type Severity Reaction Status Date / Time Sulfa (Sulfonamide Allergy Unknown Verified 01/30/25 15:46 Antibiotics) Family History Mother CAD (coronary artery [...] you participate in: none ROS ROS Narrative Review of Systems: Constitutional: Patient denies fever or chills. Eyes: Patient admits to dark spots in his visual field, anxiety recent episode of syncope or presyncope. ENT: Patient denies runny nose, sore throat or ear pain. CV: Patient denies chest pain as per HPI syncope and presyncope. : Patient denies dysuria or hematuria. MSK: Patient admits to dyspnea on exertion with easy fatigability. Skin: Patient denies rash or abscess. Psych: Patient denies significant uncontrolled depression or anxiety. Neuro: Denies headache, paresthesias or focal neurologic deficits. Allergies: Patient denies swelling, Swelling or erythema. Hematology: Patient denies easy bleeding and easy stability. Endocrinology: Patient denies polyuria, polydipsia, polyphagia or heat/cold intolerance. 14 point ROS otherwise negative except for positives noted above in HPI. Vital Signs Vital Signs Vital Signs: 01/30/25 15:46 01/30/25 15:57 01/30/25 16:32 Temperature 98.1 F Temperature Source Temporal Pulse Rate 103 H Respiratory Rate 20 H Respiratory Effort Normal Blood Pressure 151/79 H Blood Pressure Mean 103 Pulse Ox 100 100 Oxygen Delivery Method Room Air Room Air 01/30/25 16:45 01/30/25 17:00 01/30/25 18:00 Temperature Temperature Source Pulse Rate 87 86 81 Respiratory Rate 14 14 17 Respiratory Effort Blood Pressure 148/82 H 148/82 H 160/77 H Blood Pressure Mean 104 104 104 Pulse Ox 97 97 98 Oxygen Delivery Method Room Air Room Air Room Air 01/30/25 18:45 01/30/25 19:00 01/30/25 19:56 Temperature 98.6 F Temperature Source Pulse Rate 76 76 75 Respiratory Rate 16 14 16 Respiratory Effort Blood Pressure 149/83 H 134/93 H 146/92 H Blood Pressure Mean 101 105 110 Pulse Ox 96 97 100 Oxygen Delivery Method 01/30/25 19:57 01/30/25 20:00 01/30/25 20:15 Temperature Temperature Source Pulse Rate 77 75 76 Respiratory Rate 16 21 H 15 Respiratory Effort Blood Pressure 146/92 H 143/87 H 132/76 H Blood Pressure Mean 106 104 90 Pulse Ox 99 100 95 Oxygen Delivery Method 01/30/25 21:00 01/30/25 21:45 01/30/25 22:00 Temperature Temperature Source Pulse Rate 70 67 76 Respiratory Rate 17 18 21 H Respiratory Effort Blood Pressure 143/76 H 159/90 H 143/67 H Blood Pressure Mean 96 109 89 Pulse Ox 99 94 95 Oxygen Delivery Method Weight Weight: 330 lb 7.567 oz Body Mass Index (BMI) 39.2 Physical Exam Const alert, oriented x3 and no apparent distress Constitutional Narrative: Very pleasant patient with nontoxic in appearance but anxious about worsening condition. General Appearance: cooperative HEENT normocephalic, head/scalp atraumatic, hearing grossly normal bilaterally and moist oral mucous membranes Eyes PERRL, EOMs intact bilaterally and conjunctivae normal Neck no lymphadenopathy, supple and no JVD Resp normal respiratory effort, no retractions, no use of accessory muscles and clearto auscultation bilaterally Cardio regular rate and regular rhythm GI normal to inspection, nondistended, normoactive bowel sounds, soft to palpation,non-tender and non-distended GI Narrative: Obese. Extremity normal to inspection, full ROM and no clubbing, cyanosis or edema Skin Skin Narrative: Patient has evidence of rash, abscess, wounds or jaundice. Neuro oriented x3, CN's II-XII intact bilaterally, moves all extremities and no focal motor deficits Sensorium / Orientation: awake, alert, oriented to person, oriented to place andoriented to time Speech: speech normal Psych affect normal Results Medical Records Data Attestation: I reviewed the patient's medical records Lab / Micro Data Attestation: I reviewed the patient's lab results. 01/30/25 16:04 01/30/25 16:04 Labs: Laboratory Results - last 24 hr 01/30/25 16:04: WBC 8.0, RBC 5.61, Hgb 16.6 H, Hct 46.8, MCV 83.4, MCH 29.6, MCHC 35.5, RDW Std Deviation 38.2, RDW Coeff of Lito 12.6, Plt Count 193, MPV 11.2, Immature Gran % (Auto) 0.100, Neut % (Auto) 78.9 H, Lymph % (Auto) 13.8 L,[place] % (Auto) 6.5, Eos % (Auto) 0.4, Baso % (Auto) 0.3, Absolute Neuts (auto) 6.3, Absolute Lymphs (auto) 1.10, Nucleated RBC % 0, Sodium 141, Potassium 3.7, Chloride 104, Carbon Dioxide 22.1, Anion Gap 15, BUN 14, Creatinine 1.37 H, Est GFR (MDRD) Non-Af 57 L, BUN/Creatinine Ratio 10.3, Glucose 143 H, Calcium 9.5, Troponin T High Sens 31 H D 01/30/25 17:39: Lactic Acid 1.7, Magnesium 1.9, Total Bilirubin 0.91, Direct Bilirubin 0.38 H, AST 23, ALT 31, Alkaline Phosphatase 62, Total Protein 7.2, Albumin 4.3, Globulin 2.9, Lipase 24 01/30/25 18:01: Troponin T Hi Sens 2 Hr 29 H, Urine Color Yellow, Urine Clarity Clear, Urine pH 7.0, Ur Specific [place] 1.005, Urine Protein 15 H, Urine Glucose (UA) Normal, Urine Ketones Negative, Urine Occult Blood Negative, Urine Nitrite Negative, Urine Bilirubin Negative, Urine Urobilinogen Normal, Ur Leukocyte Esterase Negative, Urine RBC 0 SEEN, Urine WBC 0 SEEN, Ur Squamous Epith Cells 0 SEEN, Urine Bacteria 0 SEEN, Urine Mucus 0 SEEN 01/30/25 20:05: Troponin T Hi Sens 4Hr 30 H Imaging Radiology Impression Chest X-Ray 01/30/25 16:45 IMPRESSION: No acute cardiopulmonary disease. Reading Location: [facility] Abdomen/Pelvis CT 01/30/25 16:59 IMPRESSION: No acute abnormalities of the abdomen or pelvis. Diverticulosis. Dense colonic stool which may suggest constipation. Chronic and ancillary findings as above. Reading Location: [facility] Brain CT 01/30/25 16:59 IMPRESSION: No acute intracranial abnormality. Reading Location: [facility] Head/Neck CTA 01/30/25 16:59 IMPRESSION: Normal CTA of the head and neck. Reading Location: [facility] Assessment & Plan Assessment/Plan (1) Chest pain: QUALIFIERS: Chest pain type: unspecified Qualified Code(s): R07.9- Chest pain, unspecified (2) Syncope: QUALIFIERS: Syncope type: unspecified Qualified Code(s): R55 - Syncope and collapse (3) Pre-syncope: (4) Atherosclerotic heart disease of [place] coronary artery without angina pectoris: QUALIFIERS: [place] vs. transplanted heart: [place] heart QualifiedCode(s): I25.10 - Atherosclerotic heart disease of [place] coronary artery without angina pectoris (5) Obesity (BMI 30-39.9): PLAN: Plan 1. Chest Pain with Syncope and Presyncope with mildly elevated troponin T of 31ng/L present on admission in the setting of recent negative stress test done here November 21, 2024 - Admit to PCU under observation status. Check new echocardiogram as the last one was done here on December 07, 2023 which revealed LVEF ~65%; with severe biatrial dilatation, indeterminate diastolic dysfunction and mild (1+) mitral valve insufficiency. Check carotid Doppler to evaluate forstenosis. Finally, we we will consult Stephani our group see this patient on rounds in the a.m. for further recommendations with patient having recurrent chest pain and syncope/presyncope in spite of negative stress test and appropriate treatment without appreciated advanced. 2. CAD; s/p LAD stent (2012) with similar pattern of angina heralding stent placement complicating #1 - Noted. 3. Obesity (class II); with BMI of 38.6 this admission on semaglutide plus DEENA;on CPAP adding to the burden of disease outlined in #1 - Weight loss will be recommended. Check TSH. This complicates his case and may hamper recovery. 4. Essential hypertension; on amlodipine and losartan - Maintain home regimen. 5. Former tobacco abuse (quit 1994) - Noted. 6. History of paroxysmal atrial fibrillation; currently not on anticoagulation - Patient in NSR. 7. History of PE - Noted. 8. History of TIA - Noted. 9. ADHD; on atomoxetine - Maintain current treatment. 10. Testosterone deficiency; on HRT - Hold while inpatient. 11. BPH; on finasteride plus tamsulosin - Current therapy to be resumed as previous. 12. GERD; on esomeprazole twice daily - Continue PPI. 13. OA - Stable. Give acetaminophen prn. 14. DVT prophylaxis - Enoxaparin 40 mg sq BID. Total time: Approximately (but not less than) 70 minutes. Charges/Coding Visit Charges OBSV E&M: 03244 Observ/hosp same date L2 01/31/251926 <Electronically signed by Ashley Jacobs DO> Cosigner Signature (if applicable): CC: Dr. Ashley Jacobs DO; Dr. Chloe Cheema MD~ Signed [facility] Work Phone: [phone] History and physical note [facility] Medical Records Department [address] [place] [id number] H&P Exam - Hospitalist 01/30/257 MR#: [id number] Acct: [id number] Name: JERO GARZON Rep #:[id number] : 1955 69 From: Ashley Diaz DO PCP: Dr. Chloe Cheema MD Status:ADM I N Location: [place] [address] HPI - General General Date of Admission: 01/30/25 Date of Service: 01/30/25 Chief Complaint: Chest Pain and Near Syncope. HPI Narrative JERO GARZON, is a 69 M with a past medical history of essential hypertension;on amlodipine and losartan, former tobacco abuse (quit 1994), obesity (class II); with BMI of 38.6 this admission on semaglutide, DEENA; on CPAP, CAD; s/p LAD stent (2012), history of paroxysmal atrial fibrillation; currently not on anticoagulation, history of PE, history of TIA, ADHD; on atomoxetine, testosterone deficiency; on HRT, BPH; on finasteride plus tamsulosin, GERD; on esomeprazole twice daily, OA and history of recent chest pain workup; other negative stress test done here by [facility] in November 21, 2024 that revealed LVEF of ~65% who presents to [facility] ER complaining of chestpain and near syncope. Mr. Garzon reports his symptoms began approximately 1 week prior to admission with progressively worsening fatigue and patient stating he is having black spots in his vision when he exerts himself and feels like he is going to pass out, but he is only completely passed out once. He denies associated head injury, loss of consciousness or other significant trauma related to his syncopal event. Mikey admits to chest pain that he reports is midsternal, pressure-like and radiating to the Right chest wall complicated by intermittent shortness of breath that is made worse with exertion - which is nearly identicalto that it was physical and general symptom that heralded his previous LAD stentplacement. He also admits to intermittent lower abdominal bloating and nausea but no vomiting, diarrhea, constipation fever, chills, dysuria, hematuria, headache or rash. In the ER he was noted to have a very mildly elevated initialtroponin T of 31 ng/L followed by a second declining troponin T of 29 ng/L with CT scan of the abdomen/pelvis with IV contrast done in the ER that revealed no acute abnormalities of the abdomen and pelvis with diverticulosis and dense colonic stool which may suggest constipation in addition to penile implant with pump he also underwent CT brain without contrast that revealed no acute intracranial abnormality in addition to CTA of the head and neck with IV contrast that was essentially unremarkable with otherwise unremarkable laboratory studies and vital signs. He was then admitted to the PCU under observation status for ongoing care for stay that is expected to be less than [address] [facility] Medical History Prostate infection History of cardioversion First degree heart block [...] disease) Essential hypertension Atherosclerotic heart disease of [place] coronary artery without angina pectoris Confusion Unstable [...] testosterone 4 pump transdermal DAILY low 11/23/21 01/30/25 History testosterone tamsulosin 0.4 mg capsule 0.4 mg PO DAILY prostate 05/1001/30/25 History amlodipine 5 mg tablet 10 mg (2 x 5 mg) PO DAILY ht n #90 04/08/24 01/30/25 Rx tabs esomeprazole magnesium 40 mg 40 mg PO BID 10/28/24 History capsule,delayed release finasteride 5 mg tablet 5 mg PO DAILY 10/28/2401/30 History losartan 100 mg tablet 100 mg PO DAILY 10/28/24 History multivitamin (Daily Multi-Vitamin 1 tab PO DAILY 10/2801/30/25 History tablet) oxycodone-acetaminophen 5 mg-325 1 tab PO DAILY PRN pa in 10/28/24 Unknown History mg tablet potassium chloride 10 mEq 20 meq PO DAILY 10/28/24 History tablet,extended release atomoxetine 40 mg capsule 100 mg PO DAILY 11/28/24 History semaglutide (weight loss) 0.25 0.25 mg (0.5 mL) subcut QWEEK #2 mL 12/02/24 01/26/25 Rx mg/0.5 mL subcutaneous pen injector (Wegovy) Allergy/AdvReac Type Severity Reaction Status Date / Time Sulfa (Sulfonamide Allergy Unknown Verified 01/30/25 15:46 Antibiotics) Family History Mother CAD (coronary artery [...] you participate in: none ROS ROS Narrative Review of Systems: Constitutional: Patient denies fever or chills. Eyes: Patient admits to dark spots in his visual field, anxiety recent episode of syncope or presyncope. ENT: Patient denies runny nose, sore throat or ear pain. CV: Patient denies chest pain as per HPI syncope and presyncope. : Patient denies dysuria or hematuria. MSK: Patient admits to dyspnea on exertion with easy fatigability. Skin: Patient denies rash or abscess. Psych: Patient denies significant uncontrolled depression or anxiety. Neuro: Denies headache, paresthesias or focal neurologic deficits. Allergies: Patient denies swelling, Swelling or erythema. Hematology: Patient denies easy bleeding and easy stability. Endocrinology: Patient denies polyuria, polydipsia, polyphagia or heat/cold intolerance. 14 point ROS otherwise negative except for positives noted above in HPI. Vital Signs Vital Signs Vital Signs: 01/30/25 15:46 01/30/25 15:57 01/30/25 16:32 Temperature 98.1 F Temperature Source Temporal Pulse Rate 103 H Respiratory Rate 20 H Respiratory Effort Normal Blood Pressure 151/79 H Blood Pressure Mean 103 Pulse Ox 100 100 Oxygen Delivery Method Room Air Room Air 01/30/25 16:45 01/30/25 17:00 01/30/25 18:00 Temperature Temperature Source Pulse Rate 87 86 81 Respiratory Rate 14 14 17 Respiratory Effort Blood Pressure 148/82 H 148/82 H 160/77 H Blood Pressure Mean 104 104 104 Pulse Ox 97 97 98 Oxygen Delivery Method Room Air Room Air Room Air 01/30/25 18:45 01/30/25 19:00 01/30/25 19:56 Temperature 98.6 F Temperature Source Pulse Rate 76 76 75 Respiratory Rate 16 14 16 Respiratory Effort Blood Pressure 149/83 H 134/93 H 146/92 H Blood Pressure Mean 101 105 110 Pulse Ox 96 97 100 Oxygen Delivery Method 01/30/25 19:57 01/30/25 20:00 01/30/25 20:15 Temperature Temperature Source Pulse Rate 77 75 76 Respiratory Rate 16 21 H 15 Respiratory Effort Blood Pressure 146/92 H 143/87 H 132/76 H Blood Pressure Mean 106 104 90 Pulse Ox 99 100 95 Oxygen Delivery Method 01/30/25 21:00 01/30/25 21:45 01/30/25 22:00 Temperature Temperature Source Pulse Rate 70 67 76 Respiratory Rate 17 18 21 H Respiratory Effort Blood Pressure 143/76 H 159/90 H 143/67 H Blood Pressure Mean 96 109 89 Pulse Ox 99 94 95 Oxygen Delivery Method Weight Weight: 330 lb 7.567 oz Body Mass Index (BMI) 39.2 Physical Exam Const alert, oriented x3 and no apparent distress Constitutional Narrative: Very pleasant patient with nontoxic in appearance but anxious about worsening condition. General Appearance: cooperative HEENT normocephalic, head/scalp atraumatic, hearing grossly normal bilaterally and moist oral mucous membranes Eyes PERRL, EOMs intact bilaterally and conjunctivae normal Neck no lymphadenopathy, supple and no JVD Resp normal respiratory effort, no retractions, no use of accessory muscles and clearto auscultation bilaterally Cardio regular rate and regular rhythm GI normal to inspection, nondistended, normoactive bowel sounds, soft to palpation,non-tender and non-distended GI Narrative: Obese. Extremity normal to inspection, full ROM and no clubbing, cyanosis or edema Skin Skin Narrative: Patient has evidence of rash, abscess, wounds or jaundice. Neuro oriented x3, CN's II-XII intact bilaterally, moves all extremities and no focal motor deficits Sensorium / Orientation: awake, alert, oriented to person, oriented to place andoriented to time Speech: speech normal Psych affect normal Results Medical Records Data Attestation: I reviewed the patient's medical records Lab / Micro Data Attestation: I reviewed the patient's lab results. 01/30/25 16:04 01/30/25 16:04 Labs: Laboratory Results - last 24 hr 01/30/25 16:04: WBC 8.0, RBC 5.61, Hgb 16.6 H, Hct 46.8, MCV 83.4, MCH 29.6, MCHC 35.5, RDW Std Deviation 38.2, RDW Coeff of [place] 12.6, Plt Count 193, MPV 11.2, Immature Gran % (Auto) 0.100, Neut % (Auto) 78.9 H, Lymph % (Auto) 13.8 L,[place] % (Auto) 6.5, Eos % (Auto) 0.4, Baso % (Auto) 0.3, Absolute Neuts (auto) 6.3, Absolute Lymphs (auto) 1.10, Nucleated RBC % 0, Sodium 141, Potassium 3.7, Chloride 104, Carbon Dioxide 22.1, Anion Gap 15, BUN 14, Creatinine 1.37 H, Est GFR (MDRD) Non-Af 57 L, BUN/Creatinine Ratio 10.3, Glucose 143 H, Calcium 9.5, Troponin T High Sens 31 H D 01/30/25 17:39: Lactic Acid 1.7, Magnesium 1.9, Total Bilirubin 0.91, Direct Bilirubin 0.38 H, AST 23, ALT 31, Alkaline Phosphatase 62, Total Protein 7.2, Albumin 4.3, Globulin 2.9, Lipase 24 01/30/25 18:01: Troponin T Hi Sens 2 Hr 29 H, Urine Color Yellow, Urine Clarity Clear, Urine pH 7.0, Ur Specific [place] 1.005, Urine Protein 15 H, Urine Glucose (UA) Normal, Urine Ketones Negative, Urine Occult Blood Negative, Urine Nitrite Negative, Urine Bilirubin Negative, Urine Urobilinogen Normal, Ur Leukocyte Esterase Negative, Urine RBC 0 SEEN, Urine WBC 0 SEEN, Ur Squamous Epith Cells 0 SEEN, Urine Bacteria 0 SEEN, Urine Mucus 0 SEEN 01/30/25 20:05: Troponin T Hi Sens 4Hr 30 H Imaging Radiology Impression Chest X-Ray 01/30/25 16:45 IMPRESSION: No acute cardiopulmonary disease. Reading Location: [id number] Abdomen/Pelvis CT 08/14/25 16:59 IMPRESSION: No acute abnormalities of the abdomen or pelvis. Diverticulosis. Dense colonic stool which may suggest constipation. Chronic and ancillary findings as above. Reading Location: [facility] Brain CT 01/30/25 16:59 IMPRESSION: No acute intracranial abnormality. Reading Location: [facility] Head/Neck CTA 01/30/25 16:59 IMPRESSION: Normal CTA of the head and neck. Reading Location: [facility] Assessment & Plan Assessment/Plan (1) Chest pain: QUALIFIERS: Chest pain type: unspecified Qualified Code(s): R07.9- Chest pain, unspecified (2) Syncope: QUALIFIERS: Syncope type: unspecified Qualified Code(s): R55 - Syncope and collapse (3) Pre-syncope: (4) Atherosclerotic heart disease of [place] coronary artery without angina pectoris: QUALIFIERS: [place] vs. transplanted heart: [place] heart QualifiedCode(s): I25.10 - Atherosclerotic heart disease of [place] coronary artery without angina pectoris (5) Obesity (BMI 30-39.9): PLAN: Plan 1. Chest Pain with Syncope and Presyncope with mildly elevated troponin T of 31ng/L present on admission in the setting of recent negative stress test done here November 21, 2024 - Admit to PCU under observation status. Check new echocardiogram as the last one was done here on December 07, 2023 which revealed LVEF ~65%; with severe biatrial dilatation, indeterminate diastolic dysfunction and mild (1+) mitral valve insufficiency. Check carotid Doppler to evaluate forstenosis. Finally, we we will consult Stephani our group see this patient on rounds in the a.m. for further recommendations with patient having recurrent chest pain and syncope/presyncope in spite of negative stress test and appropriate treatment without appreciated advanced. 2. CAD; s/p LAD stent (2012) with similar pattern of angina heralding stent placement complicating #1 - Noted. 3. Obesity (class II); with BMI of 38.6 this admission on semaglutide plus DEENA;on CPAP adding to the burden of disease outlined in #1 - Weight loss will be recommended. Check TSH. This complicates his case and may hamper recovery. 4. Essential hypertension; on amlodipine and losartan - Maintain home regimen. 5. Former tobacco abuse (quit 1994) - Noted. 6. History of paroxysmal atrial fibrillation; currently not on anticoagulation - Patient in NSR. 7. History of PE - Noted. 8. History of TIA - Noted. 9. ADHD; on atomoxetine - Maintain current treatment. 10. Testosterone deficiency; on HRT - Hold while inpatient. 11. BPH; on finasteride plus tamsulosin - Current therapy to be resumed as previous. 12. GERD; on esomeprazole twice daily - Continue PPI. 13. OA - Stable. Give acetaminophen prn. 14. DVT prophylaxis - Enoxaparin 40 mg sq BID. Total time: Approximately (but not less than) 70 minutes. Charges/Coding Visit Charges OBSV E&M: 36567 Observ/hosp same date L2 01/31/251926 Cosigner Signature (if applicable): CC: Dr. Ashley Jacobs DO; Dr. Chloe Cheema MD~ Signed [facility]08-15-2025 Progress note Author [facility] Note Date/Time January 31, 2025 5: 10pm [facility] Medical Records Department [address] [place] [id number] Progress Note - Hospitalist 01/31/25 1101 MR#: [id number] Acct: [id number] Name: JERO GARZON Rep #:[id number] : 1955 69 From: Davy grewal DO PCP: Dr. Chloe Cheema MD Status:ADM I N Location: [place] [address] Reason for Visit Chief Complaint: Chest Pain and Near Syncope. Subjective Subjective Saw patient at bedside this morning, present. Patient was sitting back comfortably in bed, conversing normally, in no acute distress. Reported mild fatigue this morning but does feel proved from yesterday. Denies any chest pain. Patient did have an episode of 14 beats of V. tach noted this morning, was asymptomatic. No other acute concerns at this time. Objective Data Objective Data Vital Signs: Vital Signs Temp Pulse Resp BP Pulse Ox O2 Del Method 98.1 F 63 16 150/70 H 98 Room Air 01/31/25 08:20 01/31/25 08:20 01/31/25 08:20 01/31/25 08:20 01/31/25 08:20 01/31/25 08:20 Oxygen Delivery Method Room Air Weight: 143.2 kg Body Mass Index (BMI) 38.4 Intake & Output: Intake and Output for Last 24 Hours 01/29/25 01/30/25 01/31/25 23:59 23:59 23:59 Intake Total 1000 / 1000 1100 / 1100 Balance 1000 / 1000 1100 / 1100 Lab / Micro Data 01/31/25 07:05 01/31/25 07:05 Labs: Laboratory Results - last 24 hr 01/30/25 16:04: WBC 8.0, RBC 5.61, Hgb 16.6 H, Hct 46.8, MCV 83.4, MCH 29.6, MCHC 35.5, RDW Std Deviation 38.2, RDW Coeff of [place] 12.6, Plt Count 193, MPV 11.2, Immature Gran % (Auto) 0.100, Neut % (Auto) 78.9 H, Lymph % (Auto) 13.8 L,[place] % (Auto) 6.5, Eos % (Auto) 0.4, Baso % (Auto) 0.3, Absolute Neuts (auto) 6.3, Absolute Lymphs (auto) 1.10, Nucleated RBC % 0, Sodium 141, Potassium 3.7, Chloride 104, Carbon Dioxide 22.1, Anion Gap 15, BUN 14, Creatinine 1.37 H, Est GFR (MDRD) Non-Af 57 L, BUN/Creatinine Ratio 10.3, Glucose 143 H, Calcium 9.5, Troponin T High Sens 31 H D 01/30/25 17:39: Lactic Acid 1.7, Magnesium 1.9, Total Bilirubin 0.91, Direct Bilirubin 0.38 H, AST 23, ALT 31, Alkaline Phosphatase 62, Total Protein 7.2, Albumin 4.3, Globulin 2.9, Lipase 24 01/30/25 18:01: Troponin T Hi Sens 2 Hr 29 H, Urine Color Yellow, Urine Clarity Clear, Urine pH 7.0, Ur Specific [place] 1.005, Urine Protein 15 H, Urine Glucose (UA) Normal, Urine Ketones Negative, Urine Occult Blood Negative, Urine Nitrite Negative, Urine Bilirubin Negative, Urine Urobilinogen Normal, Ur Leukocyte Esterase Negative, Urine RBC 0 SEEN, Urine WBC 0 SEEN, Ur Squamous Epith Cells 0 SEEN, Urine Bacteria 0 SEEN, Urine Mucus 0 SEEN 01/30/25 20:05: Troponin T Hi Sens 4Hr 30 H 01/31/25 07:05: WBC 4.0 L, RBC 4.78, Hgb 13.9, Hct 39.7 L, MCV 83.1, MCH 29.1, MCHC 35.0, RDW Std Deviation 38.5, RDW Coeff of [place] 12.8, Plt Count 141 L, MPV 11.1, Immature Gran % (Auto) 0.300, Neut % (Auto) 64.2, Lymph % (Auto) 23.3, [place] % (Auto) 10.4 H, Eos % (Auto) 1.3, Baso % (Auto) 0.5, Absolute Neuts (auto) 2.5, Absolute Lymphs (auto) 0.92, Nucleated RBC % 0, D-Dimer Quant (PE/DVT) 0.27, Sodium 140, Potassium 3.7, Chloride 107, Carbon Dioxide 21.9, Anion Gap 11, BUN 14, Creatinine 0.96, Estim Creat Clear Calc 115.50, Est GFR (MDRD) Non-Af 87, BUN/Creatinine Ratio 14.8, Glucose 108 H, Hemoglobin A1c 5.4, Calcium 8.8, Phosphorus 3.7, Total Bilirubin 0.54, AST 19, ALT 28, Alkaline Phosphatase 57, Total Protein 5.9, Albumin 3.8, Globulin 2.1 L, Albumin/Globulin Ratio 1.8, Vitamin B12 877, Serum Folate 12.90, TSH 1.800, Ethyl Alcohol < 10.1 Radiography Diagnostic Testing: Radiology Impression Chest X-Ray 01/30/25 16:45 IMPRESSION: No acute cardiopulmonary disease. Reading Location: [facility] Abdomen/Pelvis CT 01/30/25 16:59 IMPRESSION: No acute abnormalities of the abdomen or pelvis. Diverticulosis. Dense colonic stool which may suggest constipation. Chronic and ancillary findings as above. Reading Location: [facility] Brain CT 01/30/25 16:59 IMPRESSION: No acute intracranial abnormality. Reading Location: [id number] Head/Neck CTA 01/30/25 16:59 IMPRESSION: Normal CTA of the head and neck. Reading Location: [id number] Physical Exam Const alert, oriented x3 and no apparent distress Constitutional Narrative: Pleasant upper middle-aged male, class II obesity, mildly fatigued appearing butotherwise sitting back comfortably in bed, conversing normally, in no acute distress. General Appearance: cooperative and comfortable HEENT normocephalic, head/scalp atraumatic, hearing grossly normal bilaterally, nasal mucous membranes and turbinates normal and moist oral mucous membranes Eyes PERRL, EOMs intact bilaterally and conjunctivae normal Neck full ROM Chest inspection of chest normal Resp normal respiratory effort, normal air movement, no use of accessory muscles and clear to auscultation bilaterally Cardio regular rate, regular rhythm, no murmurs and peripheral pulses 2+ throughout GI normal to inspection, nondistended, normoactive bowel sounds, soft to palpation,non-tender and non-distended Back/Spine normal ROM Extremity normal to inspection, full ROM and no pedal edema Skin no rashes or lesions noted Psych mental status grossly normal Assessment & Plan Assessment/Plan (1) AV block, 3rd degree: PLAN: Plan Patient is a 69-year-old male who presented to [facility] ED on 01/30/2025 with chest pain and presyncopal episodes. 1. Third-degree AV block with presyncopal symptoms ? Cardiology following. Noted to have third-degree AV block on EKG on admit. Cardiology suspected underlying sick sinus syndrome due to known first-degree AVblock along with left anterior fascicular block. S/p permanent pacemaker placement on afternoon of 01/31. Tolerated procedure well, no intraoperative complications noted. Continue cardiac monitoring. Further management per cardiology. 2. Episode of V. tach; history of CAD with stenting, hypertension, hyperlipidemia, paroxysmal atrial flutter ? Cardiology following as above. Patient noted to have episode of 14 beat run of V. tach on morning of 01/31, was asymptomatic. Given this and history of CAD with stenting, had left heart cath done prior to pacemaker placement that showeddominant RCA with only moderate disease and patent LAD stent noted. Echo post cath showed EF 60%, moderate concentric LV hypertrophy, moderately enlarged LA, no other concerning findings. Continue cardiac monitoring as above. Okay to continue home amlodipine and losartan. Follows with cardiology in the office and per recent office note, he is not on atorvastatin as his LDL was less than 70 recently; cardiology encouraged that he continue the statin but he self discontinued it. Was previously on Eliquis for paroxysmal A-fib but had cardioversion done in 2022 and has had no recurrence of A-fib since then so due to cost he discontinued Eliquis. Will start baby aspirin at this time. Continue cardiac monitoring as above. 3. Fatigue ? Suspect this is primarily due to third-degree heart block as above. However, patient did endorse recent tick bite about 1 to 2 weeks ago and with heart issues as above, there is some concern for Lyme disease. Lyme antibody ordered but will take several days to return. Will hold off on doxycycline at this time. 4. Recent diagnosis of prostatitis, history of BPH with obstructive symptoms and remote history of prostatitis ? Follows with Dr. Ramos. Had episode of prostatitis about 6 to 7 years ago that led to sepsis. No recurrence since then until recently when he began to have urinary pain and discomfort. Started on p.o. ciprofloxacin 4 days prior toadmission; will continue during this hospitalization. Continue home Flomax and finasteride. Chronic medical conditions: ? Class II obesity with DEEAN: BMI 38 on admit. Complicates hospital course and care. Continue home PAP therapy at night. ? GERD: Continue home PPI. ? Asthma: Continue home albuterol inhaler as needed. ? History of low back pain with spinal cord stimulator placement ? Former tobacco use: Encouraged continued cessation. ? Testosterone deficiency: Holding home testosterone therapy while inpatient. DVT prophylaxis: Lovenox CODE STATUS: Full code, verified Expected disposition: Home, 1 to 2 days Total clinical time spent by myself addressing the patient's medical issues, reviewing all the data, and collaborating with patient's care team: 35 minutes. Charges/Coding Visit Charges Inpatient E&M: 42578 Subs Hosp L2 01/31/25 2188 <Electronically signed by Davy Lanier DO> Cosigner Signature (if applicable): CC: ~ Signed [facility] Work Phone: 1(443) 844-576308-15-2025 Progress note [facility] Medical Records Department [address] [place] [address] Progress Note - Hospitalist 01/31/25 1101 MR#: [id number] Acct: [id number] Name: JERO GARZON Rep #:[id number] : 1955 69 From: Davy grewal DO PCP: Dr. Chloe Cheema MD Status:ADM I N Location: [place] [address] Reason for Visit Chief Complaint: Chest Pain and Near Syncope. Subjective Subjective Saw patient at bedside this morning, present. Patient was sitting back comfortably in bed, conversing normally, in no acute distress. Reported mild fatigue this morning but does feel proved fromyesterday. Denies any chest pain. Patient did have an episode of 14 beats of V. tach noted this morning, was asymptomatic. No other acute concerns at this time. Objective Data Objective Data Vital Signs: Vital Signs Temp Pulse Resp BP Pulse Ox O2 Del Method 98.1 F 63 16 150/70 H 98 Room Air 01/31/25 08:20 01/31/25 08:20 01/31/25 08:20 01/31/25 08:20 01/31/25 08:20 01/31/25 08:20 Oxygen Delivery Method Room Air Weight: 143.2 kg Body Mass Index (BMI) 38.4 Intake & Output: Intake and Output for Last 24 Hours 01/29/25 01/30/25 01/31/25 23:59 23:59 23:59 Intake Total 1000 / 1000 1100 / 1100 Balance 1000 / 1000 1100 / 1100 Lab / Micro Data 01/31/25 07:05 01/31/25 07:05 Labs: Laboratory Results - last 24 hr 01/30/25 16:04: WBC 8.0, RBC 5.61, Hgb 16.6 H, Hct 46.8, MCV 83.4, MCH 29.6, MCHC 35.5, RDW Std Deviation 38.2, RDW Coeff of Lito 12.6, Plt Count 193, MPV 11.2, Immature Gran % (Auto) 0.100, Neut % (Auto) 78.9 H, Lymph % (Auto) 13.8 L,[place] % (Auto) 6.5, Eos % (Auto) 0.4, Baso % (Auto) 0.3, Absolute Neuts (auto) 6.3, Absolute Lymphs (auto) 1.10, Nucleated RBC % 0, Sodium 141, Potassium 3.7, Chloride 104, Carbon Dioxide 22.1, Anion Gap 15, BUN 14, Creatinine 1.37 H, Est GFR (MDRD) Non-Af 57 L, BUN/Creatinine Ratio 10.3, Glucose 143 H, Calcium 9.5, Troponin T High Sens 31 H D 01/30/25 17:39: Lactic Acid 1.7, Magnesium 1.9, Total Bilirubin 0.91, Direct Bilirubin 0.38 H, AST 23, ALT 31, Alkaline Phosphatase 62, Total Protein 7.2, Albumin 4.3, Globulin 2.9, Lipase 24 01/30/25 18:01: Troponin T Hi Sens 2 Hr 29 H, Urine Color Yellow, Urine Clarity Clear, Urine pH 7.0, Ur Specific [place] 1.005, Urine Protein 15 H, Urine Glucose (UA) Normal, Urine Ketones Negative, Urine Occult Blood Negative, Urine Nitrite Negative, Urine Bilirubin Negative, Urine Urobilinogen Normal, Ur Leukocyte Esterase Negative, Urine RBC 0 SEEN, Urine WBC 0 SEEN, Ur Squamous Epith Cells 0 SEEN, Urine Bacteria 0 SEEN, Urine Mucus 0 SEEN 01/30/25 20:05: Troponin T Hi Sens 4Hr 30 H 01/31/25 07:05: WBC 4.0 L, RBC 4.78, Hgb 13.9, Hct 39.7 L, MCV 83.1, MCH 29.1, MCHC 35.0, RDW Std Deviation 38.5, RDW Coeff of Lito 12.8, Plt Count 141 L, MPV 11.1, Immature Gran % (Auto) 0.300, Neut % (Auto) 64.2, Lymph % (Auto) 23.3, [place] % (Auto) 10.4 H, Eos % (Auto) 1.3, Baso % (Auto) 0.5, Absolute Neuts (auto) 2.5, Absolute Lymphs (auto) 0.92, Nucleated RBC % 0, D-Dimer Quant (PE/DVT) 0.27, Sodium 140, Potassium 3.7, Chloride 107, Carbon Dioxide 21.9, Anion Gap 11, BUN 14, Creatinine 0.96, Estim Creat Clear Calc 115.50, Est GFR (MDRD) Non- Af 87, BUN/Creatinine Ratio 14.8, Glucose 108 H, Hemoglobin A1c 5.4, Calcium 8.8, Phosphorus 3.7, Total Bilirubin 0.54, AST 19, ALT 28, Alkaline Phosphatase 57, Total Protein 5.9, Albumin 3.8, Globulin 2.1 L, Albumin/Globulin Ratio 1.8, Vitamin B12 877, Serum Folate 12.90, TSH 1.800, Ethyl Alcohol < 10.1 Radiography Diagnostic Testing: Radiology Impression Chest X-Ray 01/30/25 16:45 IMPRESSION: No acute cardiopulmonary disease. Reading Location: [facility] Abdomen/Pelvis CT 01/30/25 16:59 IMPRESSION: No acute abnormalities of the abdomen or pelvis. Diverticulosis. Dense colonic stool which may suggest constipation. Chronic and ancillary findings as above. Reading Location: [facility] Brain CT 01/30/25 16:59 IMPRESSION: No acute intracranial abnormality. Reading Location: [facility] Head/Neck CTA 01/30/25 16:59 IMPRESSION: Normal CTA of the head and neck. Reading Location: [facility] Physical Exam Const alert, oriented x3 and no apparent distress Constitutional Narrative: Pleasant upper middle-aged male, class II obesity, mildly fatigued appearing butotherwise sitting back comfortably in bed, conversing normally, in no acute distress. General Appearance: cooperative and comfortable HEENT normocephalic, head/scalp atraumatic, hearing grossly normal bilaterally, nasal mucous membranes and turbinates normal and moist oral mucous membranes Eyes PERRL, EOMs intact bilaterally and conjunctivae normal Neck full ROM Chest inspection of chest normal Resp normal respiratory effort, normal air movement, no use of accessory muscles and clear to auscultation bilaterally Cardio regular rate, regular rhythm, no murmurs and peripheral pulses 2+ throughout GI normal to inspection, nondistended, normoactive bowel sounds, soft to palpation,non-tender and non-distended Back/Spine normal ROM Extremity normal to inspection, full ROM and no pedal edema Skin no rashes or lesions noted Psych mental status grossly normal Assessment & Plan Assessment/Plan (1) AV block, 3rd degree: PLAN: Plan Patient is a 69-year-old male who presented to [facility] ED on 01/30/2025 with chest pain and presyncopal episodes. 1. Third-degree AV block with presyncopal symptoms ? Cardiology following. Noted to have third-degree AV block on EKG on admit. Cardiology suspected underlying sick sinus syndrome due to known first-degree AVblock along with left anterior fascicular block. S/p permanent pacemaker placement on afternoon of 01/31. Tolerated procedure well, no intraoperative complications noted. Continue cardiac monitoring. Further management per cardiology. 2. Episode of V. tach; history of CAD with stenting, hypertension, hyperlipidemia, paroxysmal atrial flutter ? Cardiology following as above. Patient noted to have episode of 14 beat run of V. tach on morningof 01/31, was asymptomatic. Given this and history of CAD with stenting, had left heart cath done prior to pacemaker placement that showeddominant RCA with only moderate disease and patent LAD stent noted. Echo post cath showed EF 60%, moderate concentric LV hypertrophy, moderately enlarged LA, no other concerning findings. Continue cardiac monitoring as above. Okay to continue home amlodipine andlosartan. Follows with cardiology in the office and per recent office note, he is not on atorvastatin as his LDL was less than 70 recently; cardiology encouraged that he continue the statin but he self discontinued it. Was previously on Eliquis for paroxysmal A-fib but had cardioversion done in 2022 and has had no recurrence of A-fib since then so due to cost he discontinued Eliquis. Will start baby aspirin at this time. Continue cardiac monitoring as above. 3. Fatigue ? Suspect this is primarily due to third-degree heart block as above. However, patient did endorse recent tick bite about 1 to 2 weeks ago and with heart issues as above, there is some concern for Lyme disease. Lyme antibody ordered but will take several days to return. Will hold off on doxycyclineat this time. 4. Recent diagnosis of prostatitis, history of BPH with obstructive symptoms and remote history of prostatitis ? Follows with Dr. Ramos. Had episode of prostatitis about 6 to 7 years ago that led to sepsis. Norecurrence since then until recently when he began to have urinary pain and discomfort. Started on p.o. ciprofloxacin 4 days prior toadmission; will continue during this hospitalization. Continue home Flomax and finasteride. Chronic medical conditions: ? Class II obesity with DEENA: BMI 38 on admit. Complicates hospital course and care. Continue home PAP therapy at night. ? GERD: Continue home PPI. ? Asthma: Continue home albuterol inhaler as needed. ? History of low back pain with spinal cord stimulator placement ? Former tobacco use: Encouraged continued cessation. ? Testosterone deficiency: Holding home testosterone therapy while inpatient. DVT prophylaxis: Lovenox CODE STATUS: Full code, verified Expected disposition: Home, 1 to 2 days Total clinical time spent by myself addressing the patient's medical issues, reviewing all the data, and collaborating with patient's care team: 35 minutes. Charges/Coding Visit Charges Inpatient E&M: 35725 Subs Hosp L2 01/31/25 1710 Cosigner Signature (if applicable): CC: ~ Signed [facility]08-15-2025 Consult note Author Sergo Perez [facility] Note Date/Time January 31, 2025 11 :37am [facility] Medical Records Department [address] [place] [address] Consultation - Cardiology 01/31/25 0807 MR#: [id number] Acct: [id number] Name: JERO GARZON Rep #:[id number] : 1955 69 From: Sergo Perez MD PCP: Dr. Chloe Cheema MD Status:ADM I NO Location: [facility] [id number]- [id number] Assessment & Plan Assessment/Plan (1) AV block, 3rd degree: PLAN: Patient presents and is noted to have intermittent high-grade AV block. My suspicion is that the patient has underlying sick sinus syndrome due to the first-degree AV block noted before as well as the left anterior fascicular block. With his symptoms I would recommend that we proceed with a permanent pacemaker implantation. Risk benefits alternatives have been explained to him he understands and agrees to proceed. (2) Syncope: QUALIFIERS: Syncope type: unspecified Qualified Code(s): R55 - Syncope and collapse PLAN: He presents with recurrent syncope which I suspect is secondary to the high-grade intermittent AV block. (3) Paroxysmal atrial flutter: PLAN: Patient has had a previous history of paroxysmal atrial flutter and fibrillation does not appear that he has had any recent episodes Holter monitor previously did not demonstrate any episodes of atrial fibrillation flutter and has not been on any rate limiting medications. At this time I do not think he needs to be anticoagulated. (4) Fatigue: PLAN: He does have a history of fatigue but he also has sleep apnea and with hisrecent tick bite it raises the question as to whether this may be related to Lyme disease. I am concerned about his recurrent syncope and his previous history and so we will obtain Lyme titers acutely but I do not think that this completely explains his fatigue. My suspicion is that it may be related to intermittent heart block and his first-degree AV block. (5) Coronary artery disease: PLAN: He does have a history of coronary artery disease status post angioplasty and stenting of the left anterior descending artery. Recent stress test did notdemonstrate any evidence of ischemia. No ischemic workup will be pursued duringthis visit. HPI Consult Data Date of Consult: 01/31/25 HPI Narrative HPI Narrative: JERO GARZON, is a 69 M who presents to the emergency room with complaints of presyncope and fatigue which have been going on for the last 2 to 3 weeks or so. He does have a history of previous paroxysmal atrial fibrillation status post cardioversion in 2022 and coronary artery disease status post remote stenting ofhis left anterior descending artery. His last cardiac catheterization was in 2017 and at that time demonstrated a patent stent in the left anterior descending artery. He says that he has been otherwise well and has have a history of hypertension obstructive sleep apnea being treated with his CPAP device. He had presented to the emergency room in November with chest discomfort his cardiac enzymes were negative and he underwent a myocardial perfusion stresstest which was noted to be normal. He also had an echocardiogram which demonstrated an ejection fraction of 65%. Natruretic peptide level was normal at that time. He thinks that he may have been bitten by a tick about a week ago. His previous EKG had demonstrated sinus rhythm with a first-degree AV block and he does have a previous history of paroxysmal atrial fibrillation. Hehas had at least 1 syncopal episode but no head injury. He was admitted to the telemetry care unit and had episodes of high-grade AV block. Cardiology was called for further evaluation and management. His EKG did demonstrates sinus rhythm with a first- degree AV block and then periods of complete AV block with Pwaves and no conduction. He has had no definitive fever but he has had fatigue no necessarily myalgias. His white count has been normal. He has never been checked for Lyme disease though he thinks he may have had a tick bite he did notsee any bull's-eye phenomenon. He has not been on any anticoagulation or negative rate chronotropic agents. [facility] Medical History Prostate infection History of cardioversion First degree heart block [...] disease) Essential hypertension Atherosclerotic heart disease of [place] coronary artery without angina pectoris Confusion Unstable [...] testosterone 4 pump transdermal DAILY low 11/23/21 01/30/25 History testosterone tamsulosin 0.4 mg capsule 0.4 mg PO DAILY prostate 05/1001/30/25 History amlodipine 5 mg tablet 10 mg (2 x 5 mg) PO DAILY ht n #90 04/08/24 01/30/25 Rx tabs esomeprazole magnesium 40 mg 40 mg PO BID 10/28/24 History capsule,delayed release finasteride 5 mg tablet 5 mg PO DAILY 10/28/2401/30 History losartan 100 mg tablet 100 mg PO DAILY 10/28/24 History multivitamin (Daily Multi-Vitamin 1 tab PO DAILY 10/2801/30/25 History tablet) oxycodone-acetaminophen 5 mg-325 1 tab PO DAILY PRN pa in 10/28/24 Unknown History mg tablet potassium chloride 10 mEq 20 meq PO DAILY 10/28/24 History tablet,extended release atomoxetine 40 mg capsule 100 mg PO DAILY 11/28/24 History semaglutide (weight loss) 0.25 0.25 mg (0.5 mL) subcut QWEEK #2 mL 12/02/24 01/26/25 Rx mg/0.5 mL subcutaneous pen injector (Wegovy) Allergy/AdvReac Type Severity Reaction Status Date / Time Sulfa (Sulfonamide Allergy Unknown Verified 01/30/25 15:46 Antibiotics) Family History Mother CAD (coronary artery [...] activity do you participate in: none ROS Constitutional Constitutional: Reports malaise and weakness; Denies fever(s) or weight loss Eyes Eyes: Reports systems reviewed and no addt'l complaints, except as documented ENT HEENT: Reports systems reviewed and no addt'l complaints, except as documented Cardiovascular Cardiovascular: Reports palpitations; Denies chest pain at rest, chest pain withactivity, dyspnea at rest, dyspnea on exertion, edema or paroxysmal nocturnal dyspnea Respiratory/Chest Respiratory/Chest: Reports shortness of breath with exertion; Denies dyspnea on exertion, productive cough or shortness of breath at rest Gastrointestinal Gastrointestinal: Denies change in bowel habits, nausea, vomiting or weight changes Genitourinary Genitourinary: Denies difficulty urinating Musculoskeletal Musculoskeletal: Denies joint stiffness or muscle weakness Integumentary Integumentary: Denies lesions Neurologic Neurologic: Reports dizziness and syncope Psychiatric Psychiatric: Denies anxiety Endocrine Endocrinology: Denies excessive sweating or fatigue Hematologic/Lymphatic Hematologic/Lymphatic: Denies anemia Allergic/Immunologic Allergic/Immunologic: Denies seasonal rhinorrhea Physical Exam Const alert, oriented x3 and no apparent distress General Appearance: cooperative HEENT hearing grossly normal bilaterally Head and Scalp: atraumatic Eyes EOMs intact bilaterally Neck General: normal visual inspection Chest inspection of chest normal and palpation of chest normal Resp normal respiratory effort Auscultation: clear to auscultation bilaterally Cardio regular rate, regular rhythm, S1 normal heart sound and S2 normal heart sound Jugular Venous Distention: JVD GI normal to inspection, nondistended, normoactive bowel sounds Extremity normal capillary refill and no pedal edema Peripheral Pulses: Yes pulses 2+ throughout and femoral pulses present Skin no rashes or lesions noted Neuro oriented x3 and CN's II-XII intact bilaterally Psych Appearance: grossly normal and appropriate Risk Stratification Risk Stratification Applicable: No Objective Data Vital Signs: Vital Signs Temp Pulse Resp BP Pulse Ox O2 Del Method 96.6 F L 69 16 150/60 H 98 CPAP 01/31/25 05:10 01/31/25 05:10 01/31/25 05:10 01/31/25 05:10 01/31/25 05:10 01/31/25 05:10 Oxygen Delivery Method CPAP Weight: 315 lb 11.231 oz Body Mass Index (BMI) 38.4 Intake & Output: Intake and Output for Last 24 Hours 01/29/25 01/30/25 01/31/25 23:59 23:59 23:59 Intake Total 1000 / 1000 100 / 100 Balance 1000 / 1000 100 / 100 Lab / Micro Data 01/31/25 07:05 01/30/25 16:04 Labs: Laboratory Results - last 24 hr 01/30/25 16:04: WBC 8.0, RBC 5.61, Hgb 16.6 H, Hct 46.8, MCV 83.4, MCH 29.6, MCHC 35.5, RDW Std Deviation 38.2, RDW Coeff of Lito 12.6, Plt Count 193, MPV 11.2, Immature Gran % (Auto) 0.100, Neut % (Auto) 78.9 H, Lymph % (Auto) 13.8 L,[place] % (Auto) 6.5, Eos % (Auto) 0.4, Baso % (Auto) 0.3, Absolute Neuts (auto) 6.3, Absolute Lymphs (auto) 1.10, Nucleated RBC % 0, Sodium 141, Potassium 3.7, Chloride 104, Carbon Dioxide 22.1, Anion Gap 15, BUN 14, Creatinine 1.37 H, Est GFR (MDRD) Non-Af 57 L, BUN/Creatinine Ratio 10.3, Glucose 143 H, Calcium 9.5, Troponin T High Sens 31 H D 01/30/25 17:39: Lactic Acid 1.7, Magnesium 1.9, Total Bilirubin 0.91, Direct Bilirubin 0.38 H, AST 23, ALT 31, Alkaline Phosphatase 62, Total Protein 7.2, Albumin 4.3, Globulin 2.9, Lipase 24 01/30/25 18:01: Troponin T Hi Sens 2 Hr 29 H, Urine Color Yellow, Urine Clarity Clear, Urine pH 7.0, Ur Specific [place] 1.005, Urine Protein 15 H, Urine Glucose (UA) Normal, Urine Ketones Negative, Urine Occult Blood Negative, Urine Nitrite Negative, Urine Bilirubin Negative, Urine Urobilinogen Normal, Ur Leukocyte Esterase Negative, Urine RBC 0 SEEN, Urine WBC 0 SEEN, Ur Squamous Epith Cells 0 SEEN, Urine Bacteria 0 SEEN, Urine Mucus 0 SEEN 01/30/25 20:05: Troponin T Hi Sens 4Hr 30 H 01/31/25 07:05: WBC 4.0 L, RBC 4.78, Hgb 13.9, Hct 39.7 L, MCV 83.1, MCH 29.1, MCHC 35.0, RDW Std Deviation 38.5, RDW Coeff of Lito 12.8, Plt Count 141 L, MPV 11.1, Immature Gran % (Auto) 0.300, Neut % (Auto) 64.2, Lymph % (Auto) 23.3, [place] % (Auto) 10.4 H, Eos % (Auto) 1.3, Baso % (Auto) 0.5, Absolute Neuts (auto) 2.5, Absolute Lymphs (auto) 0.92, Nucleated RBC % 0, Ethyl Alcohol < 10.1 Cardiology Labs/Tests 01/30/25 16:04: WBC 8.0, RBC 5.61, Hgb 16.6 H, Hct 46.8, MCV 83.4, MCH 29.6, MCHC 35.5, Plt Count 193, MPV 11.2, Immature Gran % (Auto) 0.100, Neut % (Auto) 78.9 H, Lymph % (Auto) 13.8 L, [place] % (Auto) 6.5, Eos % (Auto) 0.4, Baso % (Auto) 0.3, Absolute Neuts (auto) 6.3, Nucleated RBC % 0, Sodium 141, Potassium 3.7, Chloride 104, Carbon Dioxide 22.1, Anion Gap 15, BUN 14, Creatinine 1.37 H,Est GFR (MDRD) Non-Af 57 L, BUN/Creatinine Ratio 10.3, Glucose 143 H, Calcium 9.5 01/30/25 17:39: Lactic Acid 1.7, Magnesium 1.9, Total Bilirubin 0.91, Direct Bilirubin 0.38 H 01/30/25 18:01: Urine Color Yellow, Urine Clarity Clear, Urine pH 7.0, Ur Specific [place] 1.005, Urine Protein 15 H, Urine Glucose (UA) Normal, Urine Ketones Negative, Urine Occult Blood Negative, Urine Nitrite Negative, Urine Bilirubin Negative, Urine Urobilinogen Normal, Ur Leukocyte Esterase Negative, Urine RBC 0 SEEN, Urine WBC 0 SEEN 01/31/25 07:05: WBC 4.0 L, RBC 4.78, Hgb 13.9, Hct 39.7 L, MCV 83.1, MCH 29.1, MCHC 35.0, Plt Count 141 L, MPV 11.1, Immature Gran % (Auto) 0.300, Neut % (Auto) 64.2, Lymph % (Auto) 23.3, [place] % (Auto) 10.4 H, Eos % (Auto) 1.3, Baso %(Auto) 0.5, Absolute Neuts (auto) 2.5, Nucleated RBC % 0 Rhythm: EKG: ECHO: Stress Test: Cardiac Cath: PCI: CT Surgery: Holter monitor: EPS: PPM: CXR: Chest CT Scan: Radiography Diagnostic Testing: Radiology Impression Chest X-Ray 01/30/25 16:45 IMPRESSION: No acute cardiopulmonary disease. Reading Location: [facility] Abdomen/Pelvis CT 01/30/25 16:59 IMPRESSION: No acute abnormalities of the abdomen or pelvis. Diverticulosis. Dense colonic stool which may suggest constipation. Chronic and ancillary findings as above. Reading Location: [facility] Brain CT 01/30/25 16:59 IMPRESSION: No acute intracranial abnormality. Reading Location: [facility] Head/Neck CTA 01/30/25 16:59 IMPRESSION: Normal CTA of the head and neck. Reading Location: [facility] 01/31/25 0816 <Electronically signed by Sergo Perez MD> Cosigner Signature (if applicable): CC: Dr. Chloe Cheema MD~ Signed ADDENDUM by Dr. Sergo Perez MD on 01/31/25 at 1137 Addendum Patient was noted to have a 14 beat run of ventricular tachycardia. He was therefore underwent a cardiac catheterization with demonstrated the following: Normal left main coronary. Left anterior descending artery previously placed and noted to be patent. Jailed diagonal vessel with moderately severe ostial disease. Nondominant left circumflex artery with mild to moderate proximal disease. Dominant large right coronary artery with 60% mid right coronary stenosis. Based on the bilateral graphic findings it does not appear that he has significant obstructive coronary disease to explain his fatigue or the ventricular tachyarrhythmia. 01/31/25 1137<Electronically signed by Sergo Perez MD> Cosigner Signature (if applicable): cc: Dr. Chloe Cheema MD ~* Signed [facility] Work Phone: [phone] Consult note [facility] Medical Records Department [address] [place] [address] Consultation - Cardiology 01/31/25806 MR#: [id number] Acct: [id number] Name: JERO GARZON Rep #:[id number] : 1955 69 From: Sergo Perez MD PCP: Dr. Chloe Cheema MD Status:ADM I NO Location: [place] [address]- Assessment & Plan Assessment/Plan (1) AV block, 3rd degree: PLAN: Patient presents and is noted to have intermittent high-grade AV block. My suspicion is that the patient has underlying sick sinus syndrome due to the first-degree AV block noted before as wellas the left anterior fascicular block. With his symptoms I would recommend that we proceed with a permanent pacemaker implantation. Risk benefits alternatives have been explained to him he understands and agrees to proceed. (2) Syncope: QUALIFIERS: Syncope type: unspecified Qualified Code(s): R55 - Syncope and collapse PLAN: He presents with recurrent syncope which I suspect is secondary to the high-grade intermittent AV block. (3) Paroxysmal atrial flutter: PLAN: Patient has had a previous history of paroxysmal atrial flutter and fibrillation does not appear that he has had any recent episodes Holter monitor previously did not demonstrate any episodes of atrial fibrillation flutter and has not been on any rate limiting medications. At this time I do not think he needs to be anticoagulated. (4) Fatigue: PLAN: He does have a history of fatigue but he also has sleep apnea and with hisrecent tick bite itraises the question as to whether this may be related to Lyme disease. I am concerned about his recurrent syncope and his previous history and so we will obtain Lyme titers acutely but I do not thinkthat this completely explains his fatigue. My suspicion is that it may be related to intermittent heart block and his first-degree AV block. (5) Coronary artery disease: PLAN: He does have a history of coronary artery disease status post angioplasty and stenting of theleft anterior descending artery. Recent stress test did notdemonstrate any evidence of ischemia. Noischemic workup will be pursued duringthis visit. HPI Consult Data Date of Consult: 01/31/25 HPI Narrative HPI Narrative: JERO GARZON, is a 69 M who presents to the emergency room with complaints of presyncope and fatigue which have been going on for the last 2 to 3 weeks or so. He does have a history of previous paroxysmal atrial fibrillation status post cardioversion in 2022 and coronary artery disease status post remote stenting ofhis left anterior descending artery. His last cardiac catheterization was in 2017 and at that time demonstrated a patent stent in the left anterior descending artery. He says that he has been otherwise well and has have a history of hypertension obstructive sleep apnea being treated with his CPAP device. He had presented to the emergency room in November with chest discomfort his cardiac enzymes were negative and he underwent a myocardial perfusion stresstest which was noted to be normal. He also had an echocardiogram which demonstrated an ejection fraction of 65%. Natruretic peptide level was normal at that time. He thinks that he may have been bitten by a tick about a week ago. His previous EKG had demonstrated sinus rhythm with a first-degree AV block and he does have a previous history of paroxysmal atrial fibrillation. Hehas had at least 1 syncopal episode but no head injury. He was admitted to the telemetry care unit and had episodes of high-grade AV block. Cardiology was called for further evaluation and management. His EKG did demonstrates sinus rhythm with a first- degree AV block and then periods of complete AV block with Pwaves and no conduction. He has had no definitive fever but he has had fatigue no necessarily myalgias. His white count has been normal. He has never been checked for Lyme disease though he thinks he may have had a tick bite he did notsee any bull's- eye phenomenon. He has not been on any anticoagulation or negative rate chronotropicagents. [facility] Medical History Prostate infection History of cardioversion First degree heart block [...] disease) Essential hypertension Atherosclerotic heart disease of [place] coronary artery without angina pectoris Confusion Unstable [...] testosterone 4 pump transdermal DAILY low 11/23/21 01/30/25 History testosterone tamsulosin 0.4 mg capsule 0.4 mg PO DAILY prostate 05/1001/30/25 History amlodipine 5 mg tablet 10 mg (2 x 5 mg) PO DAILY ht n #90 04/08/24 01/30/25 Rx tabs esomeprazole magnesium 40 mg 40 mg PO BID 10/28/24 History capsule,delayed release finasteride 5 mg tablet 5 mg PO DAILY 10/28/2401/30 History losartan 100 mg tablet 100 mg PO DAILY 10/28/24 History multivitamin (Daily Multi-Vitamin 1 tab PO DAILY 10/2801/30/25 History tablet) oxycodone-acetaminophen 5 mg-325 1 tab PO DAILY PRN pa in 10/28/24 Unknown History mg tablet potassium chloride 10 mEq 20 meq PO DAILY 10/28/24 History tablet,extended release atomoxetine 40 mg capsule 100 mg PO DAILY 11/28/24 History semaglutide (weight loss) 0.25 0.25 mg (0.5 mL) subcut QWEEK #2 mL 12/02/24 01/26/25 Rx mg/0.5 mL subcutaneous pen injector (Wegovy) Allergy/AdvReac Type Severity Reaction Status Date / Time Sulfa (Sulfonamide Allergy Unknown Verified 01/30/25 15:46 Antibiotics) Family History Mother CAD (coronary artery [...] activity do you participate in: none ROS Constitutional Constitutional: Reports malaise and weakness; Denies fever(s) or weight loss Eyes Eyes: Reports systems reviewed and no addt'l complaints, except as documented ENT HEENT: Reports systems reviewed and no addt'l complaints, except as documented Cardiovascular Cardiovascular: Reports palpitations; Denies chest pain at rest, chest pain withactivity, dyspnea at rest, dyspnea on exertion, edema or paroxysmal nocturnal dyspnea Respiratory/Chest Respiratory/Chest: Reports shortness of breath with exertion; Denies dyspnea on exertion, productive cough or shortness of breath at rest Gastrointestinal Gastrointestinal: Denies change in bowel habits, nausea, vomiting or weight changes Genitourinary Genitourinary: Denies difficulty urinating Musculoskeletal Musculoskeletal: Denies joint stiffness or muscle weakness Integumentary Integumentary: Denies lesions Neurologic Neurologic: Reports dizziness and syncope Psychiatric Psychiatric: Denies anxiety Endocrine Endocrinology: Denies excessive sweating or fatigue Hematologic/Lymphatic Hematologic/Lymphatic: Denies anemia Allergic/Immunologic Allergic/Immunologic: Denies seasonal rhinorrhea Physical Exam Const alert, oriented x3 and no apparent distress General Appearance: cooperative HEENT hearing grossly normal bilaterally Head and Scalp: atraumatic Eyes EOMs intact bilaterally Neck General: normal visual inspection Chest inspection of chest normal and palpation of chest normal Resp normal respiratory effort Auscultation: clear to auscultation bilaterally Cardio regular rate, regular rhythm, S1 normal heart sound and S2 normal heart sound Jugular Venous Distention: JVD GI normal to inspection, nondistended, normoactive bowel sounds Extremity normal capillary refill and no pedal edema Peripheral Pulses: Yes pulses 2+ throughout and femoral pulses present Skin no rashes or lesions noted Neuro oriented x3 and CN's II-XII intact bilaterally Psych Appearance: grossly normal and appropriate Risk Stratification Risk Stratification Applicable: No Objective Data Vital Signs: Vital Signs Temp Pulse Resp BP Pulse Ox O2 Del Method 96.6 F L 69 16 150/60 H 98 CPAP 01/31/25 05:10 01/31/25 05:10 01/31/25 05:10 01/31/25 05:10 01/31/25 05:10 01/31/25 05:10 Oxygen Delivery Method CPAP Weight: 315 lb 11.231 oz Body Mass Index (BMI) 38.4 Intake & Output: Intake and Output for Last 24 Hours 01/29/25 01/30/25 01/31/25 23:59 23:59 23:59 Intake Total 1000 / 1000 100 / 100 Balance 1000 / 1000 100 / 100 Lab / Micro Data 01/31/25 07:05 01/30/25 16:04 Labs: Laboratory Results - last 24 hr 01/30/25 16:04: WBC 8.0, RBC 5.61, Hgb 16.6 H, Hct 46.8, MCV 83.4, MCH 29.6, MCHC 35.5, RDW Std Deviation 38.2, RDW Coeff of Lito 12.6, Plt Count 193, MPV 11.2, Immature Gran % (Auto) 0.100, Neut % (Auto) 78.9 H, Lymph % (Auto) 13.8 L,[place] % (Auto) 6.5, Eos % (Auto) 0.4, Baso % (Auto) 0.3, Absolute Neuts (auto) 6.3, Absolute Lymphs (auto) 1.10, Nucleated RBC % 0, Sodium 141, Potassium 3.7, Chloride 104, Carbon Dioxide 22.1, Anion Gap 15, BUN 14, Creatinine 1.37 H, Est GFR (MDRD) Non-Af 57 L, BUN/Creatinine Ratio 10.3, Glucose 143 H, Calcium 9.5, Troponin T High Sens 31 H D 01/30/25 17:39: Lactic Acid 1.7, Magnesium 1.9, Total Bilirubin 0.91, Direct Bilirubin 0.38 H, AST 23, ALT 31, Alkaline Phosphatase 62, Total Protein 7.2, Albumin 4.3, Globulin 2.9, Lipase 24 01/30/25 18:01: Troponin T Hi Sens 2 Hr 29 H, Urine Color Yellow, Urine Clarity Clear, Urine pH 7.0, Ur Specific [place] 1.005, Urine Protein 15 H, Urine Glucose (UA) Normal, Urine Ketones Negative, Urine Occult Blood Negative, Urine Nitrite Negative, Urine Bilirubin Negative, Urine Urobilinogen Normal, Ur Leukocyte Esterase Negative, Urine RBC 0 SEEN, Urine WBC 0 SEEN, Ur Squamous Epith Cells 0 SEEN, Urine Bacteria 0 SEEN, Urine Mucus 0 SEEN 01/30/25 20:05: Troponin T Hi Sens 4Hr 30 H 01/31/25 07:05: WBC 4.0 L, RBC 4.78, Hgb 13.9, Hct 39.7 L, MCV 83.1, MCH 29.1, MCHC 35.0, RDW Std Deviation 38.5, RDW Coeff of Lito 12.8, Plt Count 141 L, MPV 11.1, Immature Gran % (Auto) 0.300, Neut % (Auto) 64.2, Lymph % (Auto) 23.3, [place] % (Auto) 10.4 H, Eos % (Auto) 1.3, Baso % (Auto) 0.5, Absolute Neuts (auto) 2.5, Absolute Lymphs (auto) 0.92, Nucleated RBC % 0, Ethyl Alcohol < 10.1 Cardiology Labs/Tests 01/30/25 16:04: WBC 8.0, RBC 5.61, Hgb 16.6 H, Hct 46.8, MCV 83.4, MCH 29.6, MCHC 35.5, Plt Count 193, MPV 11.2, Immature Gran % (Auto) 0.100, Neut % (Auto) 78.9 H, Lymph % (Auto) 13.8 L, [place] % (Auto) 6.5, Eos % (Auto) 0.4, Baso % (Auto) 0.3, Absolute Neuts (auto) 6.3, Nucleated RBC % 0, Sodium 141, Potassium 3.7, Chloride 104, Carbon Dioxide 22.1, Anion Gap 15, BUN 14, Creatinine 1.37 H,Est GFR(MDRD) Non-Af 57 L, BUN/Creatinine Ratio 10.3, Glucose 143 H, Calcium 9.5 01/30/25 17:39: Lactic Acid 1.7, Magnesium 1.9, Total Bilirubin 0.91, Direct Bilirubin 0.38 H 01/30/25 18:01: Urine Color Yellow, Urine Clarity Clear, Urine pH 7.0, Ur Specific [place] 1.005, Urine Protein 15 H, Urine Glucose (UA) Normal, Urine Ketones Negative, Urine Occult Blood Negative, Urine Nitrite Negative, Urine Bilirubin Negative, Urine Urobilinogen Normal, Ur Leukocyte Esterase Negative, Urine RBC 0 SEEN, Urine WBC 0 SEEN 01/31/25 07:05: WBC 4.0 L, RBC 4.78, Hgb 13.9, Hct 39.7 L, MCV 83.1, MCH 29.1, MCHC 35.0, Plt [id number] L, MPV 11.1, Immature Gran % (Auto) 0.300, Neut % (Auto) 64.2, Lymph % (Auto) 23.3, [place] % (Auto) 10.4 H, Eos % (Auto) 1.3, Baso %(Auto) 0.5, Absolute Neuts (auto) 2.5, Nucleated RBC % 0 Rhythm: EKG: ECHO: Stress Test: Cardiac Cath: PCI: CT Surgery: Holter monitor: EPS: PPM: CXR: Chest CT Scan: Radiography Diagnostic Testing: Radiology Impression Chest X-Ray 01/30/25 16:45 IMPRESSION: No acute cardiopulmonary disease. Reading Location: [facility] Abdomen/Pelvis CT 01/30/25 16:59 IMPRESSION: No acute abnormalities of the abdomen or pelvis. Diverticulosis. Dense colonic stool which may suggest constipation. Chronic and ancillary findings as above. Reading Location: [facility] Brain CT 01/30/25 16:59 IMPRESSION: No acute intracranial abnormality. Reading Location: [facility] Head/Neck CTA 01/30/25 16:59 IMPRESSION: Normal CTA of the head and neck. Reading Location: [id number] 01/31/25 0816 Cosigner Signature (if applicable): CC: Dr. Chloe Cheema MD~ Signed ADDENDUM by Dr. Sergo Perez MD on 01/31/25 at 1137 Addendum Patient was noted to have a 14 beat run of ventricular tachycardia. He was therefore underwent a cardiac catheterization with demonstrated the following: Normal left main coronary. Left anterior descending artery previously placed and noted to be patent. Jailed diagonal vessel with moderately severe ostial disease. Nondominant left circumflex artery with mild to moderate proximal disease. Dominant large right coronary artery with 60% mid right coronary stenosis. Based on the bilateral graphic findings it does not appear that he has significant obstructive coronary disease to explain his fatigue or the ventricular tachyarrhythmia. 01/31/25 1137 Cosigner Signature (if applicable): cc: Dr. Chloe Cheema MD ~* Signed [facility]08-14-2025 Discharge summary Author Chapis Polo [facility] Note Date/Time January 30, 2025 9: 46pm [facility] Medical Records Department [address] [place] [address] Emergency Department Summary 01/30/25 MR#: [id number] Acct: [id number] Name: JERO GARZON Rep #:[id number] : 1955 69 From: Chapis Polo MD PCP: Dr. Chloe Cheema MD Status:REG E R Location: ED HPI History of Present Illness Chief Complaint: Chest Pain Narrative Narrative: Patient is a 69-year-old male presenting to the emergency department for multiple complaints including chest pain and presyncopal episodes. Patient has extensive past medical history as below. Patient states that over the past weekhe has felt very fatigued. Patient states that he has been trying to work in the garage and anytime he exerts himself he develops black spots in his vision and feels like he is going to pass out. States he is only passed out once. Denies any head injury from this event. He reports midsternal pressure-like chest pain that radiates to the right chest wall. Endorses some intermittent shortness of breath as well. Endorses lower abdominal bloating. Endorses nausea with no vomiting. Denies any diarrhea, dysuria or hematuria. [facility] Medical History Prostate infection History of cardioversion First degree heart block [...] disease) Essential hypertension Atherosclerotic heart disease of [place] coronary artery without angina pectoris Confusion Unstable [...] testosterone 4 pump transdermal DAILY low 11/23/21 01/30/25 History testosterone tamsulosin 0.4 mg capsule 0.4 mg PO DAILY prostate 05/1001/30/25 History amlodipine 5 mg tablet 10 mg (2 x 5 mg) PO DAILY ht n #90 04/08/24 01/30/25 Rx tabs esomeprazole magnesium 40 mg 40 mg PO BID 10/28/24 History capsule,delayed release finasteride 5 mg tablet 5 mg PO DAILY 10/28/2401/30 History losartan 100 mg tablet 100 mg PO DAILY 10/28/24 History multivitamin (Daily Multi-Vitamin 1 tab PO DAILY 10/2801/30/25 History tablet) oxycodone-acetaminophen 5 mg-325 1 tab PO DAILY PRN pa in 10/28/24 Unknown History mg tablet potassium chloride 10 mEq 20 meq PO DAILY 10/28/24 History tablet,extended release atomoxetine 40 mg capsule 100 mg PO DAILY 11/28/24 History semaglutide (weight loss) 0.25 0.25 mg (0.5 mL) subcut QWEEK #2 mL 12/02/24 01/26/25 Rx mg/0.5 mL subcutaneous pen injector (Wegovy) Allergy/AdvReac Type Severity Reaction Status Date / Time Sulfa (Sulfonamide Allergy Unknown Verified 01/30/25 15:46 Antibiotics) Family History Mother CAD (coronary artery [...] you participate in: none ROS ROS ED ROS Narrative See HPI EXAM Physical Exam Narrative Exam Narrative: Vital signs: Reviewed General: Alert and oriented. No acute distress HEENT: Head is normocephalic and atraumatic, sinuses nontender, pupils equal round and reactive. Nares are patent. Oropharynx and throat exams normal. Neck: Supple without lymphadenopathy nontender Cardiovascular: Mildly tachycardic with regular rhythm, no murmurs. No rubs or gallops. Normal S1 and S2 Respiratory: Clear to auscultation bilaterally. No wheezes, rales, rhonchi Abdominal: Soft and mild tenderness to palpation in the lower abdomen. Normal bowel sounds. No guarding or rebound. Nonsurgical abdomen Extremities: No tenderness. No bruising. Normal range of motion. Normal sensation. Skin: No rash or redness. Neurological: Cranial nerves II through XII are grossly intact. Normal strengthand sensation. Normal cerebellar function The rest of the physical exam is unremarkable Const Vital Signs: 01/30/25 15:46 01/30/25 15:57 01/30/25 16:32 Temperature 98.1 F Temperature Source Temporal Pulse Rate 103 H Respiratory Rate 20 H Respiratory Effort Normal Blood Pressure 151/79 H Blood Pressure Mean 103 Pulse Ox 100 100 Oxygen Delivery Method Room Air Room Air 01/30/25 16:45 01/30/25 17:00 01/30/25 18:00 Temperature Temperature Source Pulse Rate 87 86 81 Respiratory Rate 14 14 17 Respiratory Effort Blood Pressure 148/82 H 148/82 H 160/77 H Blood Pressure Mean 104 104 104 Pulse Ox 97 97 98 Oxygen Delivery Method Room Air Room Air Room Air 01/30/25 18:45 01/30/25 19:00 01/30/25 19:56 Temperature 98.6 F Temperature Source Pulse Rate 76 76 75 Respiratory Rate 16 14 16 Respiratory Effort Blood Pressure 149/83 H 134/93 H 146/92 H Blood Pressure Mean 101 105 110 Pulse Ox 96 97 100 Oxygen Delivery Method 01/30/25 19:57 01/30/25 20:00 01/30/25 20:15 Temperature Temperature Source Pulse Rate 77 75 76 Respiratory Rate 16 21 H 15 Respiratory Effort Blood Pressure 146/92 H 143/87 H 132/76 H Blood Pressure Mean 106 104 90 Pulse Ox 99 100 95 Oxygen Delivery Method 01/30/25 21:00 Temperature Temperature Source Pulse Rate 70 Respiratory Rate 17 Respiratory Effort Blood Pressure 143/76 H Blood Pressure Mean 96 Pulse Ox 99 Oxygen Delivery Method MDM MDM MDM Narrative Medical decision making narrative: Patient is a 69-year-old male presenting to the emergency department for multiple complaints including presyncopal episodes and chest pain. Patient was seen and examined. Vitals are stable. Initially patient was mildly tachycardic. He is afebrile saturating 100% on room air. Stable blood pressure. Differential includes but is not limited to: ACS, arrhythmia, intracranial abnormality, pneumonia, sepsis, carotid stenosis, electrolyte abnormality Neuro intact on exam, no deficits. EKG shows sinus tachycardia with a first- degree AV block. No significant ST elevation or depression. No abnormal T waveinversions. No arrhythmia. CBC with no leukocytosis and hemoglobin of 16.6. BMP with slight bump in creatinine at 1.37. Fluid bolus started. Magnesium within normal limits. Glucose of 143. Lactate within normal limits at 1.7. Initial troponin of 31, reflex of 29 and 30. Baseline to compare to was 20 when he was here last. Urinalysis with no evidence of infection. CT brain shows no acute intracranial abnormality. CTA head and neck are normal. CT abdomen pelvis shows no acute findings. Chest x-ray shows no acute radiographic abnormalities. Discussed negative workup with patient. I do find the patient'sstory of presyncopal episodes with any exertion concerning. I recommended he beadmitted for telemetry and further evaluation possibly by cardiology versus neurology. Patient's agreeable with the plan. Hospitalist paged. Impression: Presyncopal episodes chest pain elevated troponin History & Record Review Discussion w/independent historian: Patient and Significant other Lab Data Attestation: I reviewed the patient's lab results. Labs: Laboratory Results - last 24 hr 01/30/25 01/30/25 01/30/25 16:04 17:39 18:01 WBC 8.0 RBC 5.61 Hgb 16.6 H Hct 46.8 MCV 83.4 MCH 29.6 MCHC 35.5 RDW Std Deviation 38.2 RDW Coeff of Lito 12.6 Plt Count 193 MPV 11.2 Immature Gran % (Auto) 0.100 Neut % (Auto) 78.9 H Lymph % (Auto) 13.8 L [place] % (Auto) 6.5 Eos % (Auto) 0.4 Baso % (Auto) 0.3 Absolute Neuts (auto) 6.3 Absolute Lymphs (auto) 1.10 Nucleated RBC % 0 Sodium 141 Potassium 3.7 Chloride 104 Carbon Dioxide 22.1 Anion Gap 15 BUN 14 Creatinine 1.37 H Est GFR (MDRD) Non-Af 57 L BUN/Creatinine Ratio 10.3 Glucose 143 H Lactic Acid 1.7 Calcium 9.5 Magnesium 1.9 Total Bilirubin 0.91 Direct Bilirubin 0.38 H AST 23 ALT 31 Alkaline Phosphatase 62 Troponin T High Sens 31 H D Troponin T Hi Sens 2 Hr 29 H Troponin T Hi Sens 4Hr Total Protein 7.2 Albumin 4.3 Globulin 2.9 Lipase 24 Urine Color Yellow Urine Clarity Clear Urine pH 7.0 Ur Specific [place] 1.005 Urine Protein 15 H Urine Glucose (UA) Normal Urine Ketones Negative Urine Occult Blood Negative Urine Nitrite Negative Urine Bilirubin Negative Urine Urobilinogen Normal Ur Leukocyte Esterase Negative Urine RBC 0 SEEN Urine WBC 0 SEEN Ur Squamous Epith Cells 0 SEEN Urine Bacteria 0 SEEN Urine Mucus 0 SEEN 01/30/25 20:05 WBC RBC Hgb Hct MCV MCH MCHC RDW Std Deviation RDW Coeff of Lito Plt Count MPV Immature Gran % (Auto) Neut % (Auto) Lymph % (Auto) [place] % (Auto) Eos % (Auto) Baso % (Auto) Absolute Neuts (auto) Absolute Lymphs (auto) Nucleated RBC % Sodium Potassium Chloride Carbon Dioxide Anion Gap BUN Creatinine Est GFR (MDRD) Non-Af BUN/Creatinine Ratio Glucose Lactic Acid Calcium Magnesium Total Bilirubin Direct Bilirubin AST ALT Alkaline Phosphatase Troponin T High Sens Troponin T Hi Sens 2 Hr Troponin T Hi Sens 4Hr 30 H Total Protein Albumin Globulin Lipase Urine Color Urine Clarity Urine pH Ur Specific [place] Urine Protein Urine Glucose (UA) Urine Ketones Urine Occult Blood Urine Nitrite Urine Bilirubin Urine Urobilinogen Ur Leukocyte Esterase Urine RBC Urine WBC Ur Squamous Epith Cells Urine Bacteria Urine Mucus Radiography Chest X-Ray - ED: 2 View, Read by ED Physician, No Acute Disease and No Infiltrates Diagnostic Testing: Clinical Impression(s) from Imaging Studies Chest X-Ray 01/30/25 16:45 IMPRESSION: No acute cardiopulmonary disease. Reading Location: [facility] Abdomen/Pelvis CT 01/30/25 16:59 IMPRESSION: No acute abnormalities of the abdomen or pelvis. Diverticulosis. Dense colonic stool which may suggest constipation. Chronic and ancillary findings as above. Reading Location: [facility] Brain CT 01/30/25 16:59 IMPRESSION: No acute intracranial abnormality. Reading Location: [facility] Head/Neck CTA 01/30/25 16:59 IMPRESSION: Normal CTA of the head and neck. Reading Location: [facility] Discharge Plan Triage Chief Complaint: Chest Pain Other Complaint: Weakness ED Provider: Chapis Polo Dx/Rx/DC Orders Prescriptions: No Action tamsulosin 0.4 mg capsule 0.4 mg PO DAILY testosterone 20.25 mg/1.25 gram (1.62 %) gel in metered-dose pump 4 pump transdermal DAILY Patient Comments: APPLY 4 PUMPS DAILY albuterol sulfate 1 INHALER inhaler 1 - 2 puff INHALATION Q6H PRN (Reason: Asthma) esomeprazole magnesium 40 mg capsule,delayed release(DR/EC) 40 mg PO BID Patient Comments: PT ONLY TAKES ONCE A DAY losartan 100 mg tablet 100 mg PO DAILY potassium chloride 10 mEq tablet extended release 20 meq PO DAILY finasteride 5 mg tablet 5 mg PO DAILY multivitamin [Daily Multi-Vitamin] Tablet 1 tab PO DAILY oxycodone-acetaminophen 5-325 mg tablet 1 tab PO DAILY PRN (Reason: pain) atomoxetine 40 mg capsule 100 mg PO DAILY amlodipine 5 mg tablet 10 mg PO DAILY Qty: 90 3RF Wegovy 0.25 mg/0.5 mL pen injector 0.25 mg subcut QWEEK Qty: 2 0RF Rx Instructions: administer weeks 1 through 4 of therapy Primary Care Provider: Chloe Cheema Referrals: Chloe Cheema MD [Primary Care Provider] - Print Language: Tajik What to do if you have Problems For any increased pain, shortness of breath, bleeding, nausea or vomiting, chestpain, or any unexpected problems, contact your Primary Care Provider. Call [facility] ([phone]) or report to the closest Emergency Room. Call 911 if necessary. 01/30/252145 <Electronically signed by Chapis Polo MD> Cosigner Signature (if applicable): CC: Dr. Chloe Cheema MD ~ Signed [facility] Work Phone: [phone] Discharge summary [facility] Medical Records Department [address] [place] [address] Emergency Department Summary 01/30/25 MR#: [id number] Acct: [id number] Name: JERO GARZON Rep #:[id number] : 1955 69 From: Chapis Polo MD PCP: Dr. Chloe Cheema MD Status:REG E R Location: ED HPI History of Present Illness Chief Complaint: Chest Pain Narrative Narrative: Patient is a 69-year-old male presenting to the emergency department for multiple complaints including chest pain and presyncopal episodes. Patient has extensive past medical history as below. Patient states that over the past weekhe has felt very fatigued. Patient states that he has been trying towork in the garage and anytime he exerts himself he develops black spots in his vision and feels like he is going to pass out. States he is only passed out once. Denies any head injury from this event. He reports midsternal pressure-like chest pain that radiates to the right chest wall. Endorses some intermittent shortness of breath as well. Endorses lower abdominal bloating. Endorses nausea withno vomiting. Denies any diarrhea, dysuria or hematuria. [facility] Medical History Prostate infection History of cardioversion First degree heart block [...] disease) Essential hypertension Atherosclerotic heart disease of [place] coronary artery without angina pectoris Confusion Unstable [...] testosterone 4 pump transdermal DAILY low 11/23/21 01/30/25 History testosterone tamsulosin 0.4 mg capsule 0.4 mg PO DAILY prostate 05/1001/30/25 History amlodipine 5 mg tablet 10 mg (2 x 5 mg) PO DAILY ht n #90 04/08/24 01/30/25 Rx tabs esomeprazole magnesium 40 mg 40 mg PO BID 10/28/24 History capsule,delayed release finasteride 5 mg tablet 5 mg PO DAILY 10/28/2401/30 History losartan 100 mg tablet 100 mg PO DAILY 10/28/24 History multivitamin (Daily Multi-Vitamin 1 tab PO DAILY 10/2801/30/25 History tablet) oxycodone-acetaminophen 5 mg-325 1 tab PO DAILY PRN pa in 10/28/24 Unknown History mg tablet potassium chloride 10 mEq 20 meq PO DAILY 10/28/24 History tablet,extended release atomoxetine 40 mg capsule 100 mg PO DAILY 11/28/24 History semaglutide (weight loss) 0.25 0.25 mg (0.5 mL) subcut QWEEK #2 mL 12/02/24 01/26/25 Rx mg/0.5 mL subcutaneous pen injector (Wegovy) Allergy/AdvReac Type Severity Reaction Status Date / Time Sulfa (Sulfonamide Allergy Unknown Verified 01/30/25 15:46 Antibiotics) Family History Mother CAD (coronary artery [...] you participate in: none ROS ROS ED ROS Narrative See HPI EXAM Physical Exam Narrative Exam Narrative: Vital signs: Reviewed General: Alert and oriented. No acute distress HEENT: Head is normocephalic and atraumatic, sinuses nontender, pupils equal round and reactive. Nares are patent. Oropharynx and throat exams normal. Neck: Supple without lymphadenopathy nontender Cardiovascular: Mildly tachycardic with regular rhythm, no murmurs. No rubs or gallops. Normal S1 and S2 Respiratory: Clear to auscultation bilaterally. No wheezes, rales, rhonchi Abdominal: Soft and mild tenderness to palpation in the lower abdomen. Normal bowel sounds. No guarding or rebound. Nonsurgical abdomen Extremities: No tenderness. No bruising. Normal range of motion. Normal sensation. Skin: No rash or redness. Neurological: Cranial nerves II through XII are grossly intact. Normal strengthand sensation. Normal cerebellar function The rest of the physical exam is unremarkable Const Vital Signs: 01/30/25 15:46 01/30/25 15:57 01/30/25 16:32 Temperature 98.1 F Temperature Source Temporal Pulse Rate 103 H Respiratory Rate 20 H Respiratory Effort Normal Blood Pressure 151/79 H Blood Pressure Mean 103 Pulse Ox 100 100 Oxygen Delivery Method Room Air Room Air 01/30/25 16:45 01/30/25 17:00 01/30/25 18:00 Temperature Temperature Source Pulse Rate 87 86 81 Respiratory Rate 14 14 17 Respiratory Effort Blood Pressure 148/82 H 148/82 H 160/77 H Blood Pressure Mean 104 104 104 Pulse Ox 97 97 98 Oxygen Delivery Method Room Air Room Air Room Air 01/30/25 18:45 01/30/25 19:00 01/30/25 19:56 Temperature 98.6 F Temperature Source Pulse Rate 76 76 75 Respiratory Rate 16 14 16 Respiratory Effort Blood Pressure 149/83 H 134/93 H 146/92 H Blood Pressure Mean 101 105 110 Pulse Ox 96 97 100 Oxygen Delivery Method 01/30/25 19:57 01/30/25 20:00 01/30/25 20:15 Temperature Temperature Source Pulse Rate 77 75 76 Respiratory Rate 16 21 H 15 Respiratory Effort Blood Pressure 146/92 H 143/87 H 132/76 H Blood Pressure Mean 106 104 90 Pulse Ox 99 100 95 Oxygen Delivery Method 01/30/25 21:00 Temperature Temperature Source Pulse Rate 70 Respiratory Rate 17 Respiratory Effort Blood Pressure 143/76 H Blood Pressure Mean 96 Pulse Ox 99 Oxygen Delivery Method MDM MDM MDM Narrative Medical decision making narrative: Patient is a 69-year-old male presenting to the emergency department for multiple complaints including presyncopal episodes and chest pain. Patient was seen and examined. Vitals are stable. Initiallypatient was mildly tachycardic. He is afebrile saturating 100% on room air. Stable blood pressure. Differential includes but is not limited to: ACS, arrhythmia, intracranial abnormality, pneumonia, sepsis, carotid stenosis, electrolyte abnormality Neuro intact on exam, no deficits. EKG shows sinus tachycardia with a first- degree AV block. No significant ST elevation or depression. No abnormal T waveinversions. No arrhythmia. CBC with no leukocytosis and hemoglobin of 16.6. BMP with slight bump in creatinine at 1.37. Fluid bolus started. Magnesium within normal limits. Glucose of 143. Lactate within normal limits at 1.7. Initial troponin of31, reflex of 29 and 30. Baseline to compare to was 20 when he was here last. Urinalysis with no evidence of infection. CT brain shows no acute intracranial abnormality. CTA head and neck are normal.CT abdomen pelvis shows no acute findings. Chest x-ray shows no acute radiographic abnormalities. Discussed negative workup with patient. I do find the patient'sstory of presyncopal episodes with anyexertion concerning. I recommended he beadmitted for telemetry and further evaluation possibly by cardiology versus neurology. Patient's agreeable with the plan. Hospitalist paged. Impression: Presyncopal episodes chest pain elevated troponin History & Record Review Discussion w/independent historian: Patient and Significant other Lab Data Attestation: I reviewed the patient's lab results. Labs: Laboratory Results - last 24 hr 01/30/25 01/30/25 01/30/25 16:04 17:39 18:01 WBC 8.0 RBC 5.61 Hgb 16.6 H Hct 46.8 MCV 83.4 MCH 29.6 MCHC 35.5 RDW Std Deviation 38.2 RDW Coeff of Lito 12.6 Plt Count 193 MPV 11.2 Immature Gran % (Auto) 0.100 Neut % (Auto) 78.9 H Lymph % (Auto) 13.8 L [place] % (Auto) 6.5 Eos % (Auto) 0.4 Baso % (Auto) 0.3 Absolute Neuts (auto) 6.3 Absolute Lymphs (auto) 1.10 Nucleated RBC % 0 Sodium 141 Potassium 3.7 Chloride 104 Carbon Dioxide 22.1 Anion Gap 15 BUN 14 Creatinine 1.37 H Est GFR (MDRD) Non-Af 57 L BUN/Creatinine Ratio 10.3 Glucose 143 H Lactic Acid 1.7 Calcium 9.5 Magnesium 1.9 Total Bilirubin 0.91 Direct Bilirubin 0.38 H AST 23 ALT 31 Alkaline Phosphatase 62 Troponin T High Sens 31 H D Troponin T Hi Sens 2 Hr 29 H Troponin T Hi Sens 4Hr Total Protein 7.2 Albumin 4.3 Globulin 2.9 Lipase 24 Urine Color Yellow Urine Clarity Clear Urine pH 7.0 Ur Specific [place] 1.005 Urine Protein 15 H Urine Glucose (UA) Normal Urine Ketones Negative Urine Occult Blood Negative Urine Nitrite Negative Urine Bilirubin Negative Urine Urobilinogen Normal Ur Leukocyte Esterase Negative Urine RBC 0 SEEN Urine WBC 0 SEEN Ur Squamous Epith Cells 0 SEEN Urine Bacteria 0 SEEN Urine Mucus 0 SEEN 01/30/25 20:05 WBC RBC Hgb Hct MCV MCH MCHC RDW Std Deviation RDW Coeff of Lito Plt Count MPV Immature Gran % (Auto) Neut % (Auto) Lymph % (Auto) [place] % (Auto) Eos % (Auto) Baso % (Auto) Absolute Neuts (auto) Absolute Lymphs (auto) Nucleated RBC % Sodium Potassium Chloride Carbon Dioxide Anion Gap BUN Creatinine Est GFR (MDRD) Non-Af BUN/Creatinine Ratio Glucose Lactic Acid Calcium Magnesium Total Bilirubin Direct Bilirubin AST ALT Alkaline Phosphatase Troponin T High Sens Troponin T Hi Sens 2 Hr Troponin T Hi Sens 4Hr 30 H Total Protein Albumin Globulin Lipase Urine Color Urine Clarity Urine pH Ur Specific [place] Urine Protein Urine Glucose (UA) Urine Ketones Urine Occult Blood Urine Nitrite Urine Bilirubin Urine Urobilinogen Ur Leukocyte Esterase Urine RBC Urine WBC Ur Squamous Epith Cells Urine Bacteria Urine Mucus Radiography Chest X-Ray - ED: 2 View, Read by ED Physician, No Acute Disease and No Infiltrates Diagnostic Testing: Clinical Impression(s) from Imaging Studies Chest X-Ray 01/30/25 16:45 IMPRESSION: No acute cardiopulmonary disease. Reading Location: [facility] Abdomen/Pelvis CT 01/30/25 16:59 IMPRESSION: No acute abnormalities of the abdomen or pelvis. Diverticulosis. Dense colonic stool which may suggest constipation. Chronic and ancillary findings as above. Reading Location: [facility] Brain CT 01/30/25 16:59 IMPRESSION: No acute intracranial abnormality. Reading Location: [facility] Head/Neck CTA 01/30/25 16:59 IMPRESSION: Normal CTA of the head and neck. Reading Location: [facility] Discharge Plan Triage Chief Complaint: Chest Pain Other Complaint: Weakness ED Provider: Chapis Polo Dx/Rx/DC Orders Prescriptions: No Action tamsulosin 0.4 mg capsule 0.4 mg PO DAILY testosterone 20.25 mg/1.25 gram (1.62 %) gel in metered-dose pump 4 pump transdermal DAILY Patient Comments: APPLY 4 PUMPS DAILY albuterol sulfate 1 INHALER inhaler 1 - 2 puff INHALATION Q6H PRN (Reason: Asthma) esomeprazole magnesium 40 mg capsule,delayed release(DR/EC) 40 mg PO BID Patient Comments: PT ONLY TAKES ONCE A DAY losartan 100 mg tablet 100 mg PO DAILY potassium chloride 10 mEq tablet extended release 20 meq PO DAILY finasteride 5 mg tablet 5 mg PO DAILY multivitamin [Daily Multi-Vitamin] Tablet 1 tab PO DAILY oxycodone-acetaminophen 5-325 mg tablet 1 tab PO DAILY PRN (Reason: pain) atomoxetine 40 mg capsule 100 mg PO DAILY amlodipine 5 mg tablet 10 mg PO DAILY Qty: 90 3RF Wegovy 0.25 mg/0.5 mL pen injector 0.25 mg subcut QWEEK Qty: 2 0RF Rx Instructions: administer weeks 1 through 4 of therapy Primary Care Provider: Chloe Cheema Referrals: Chloe Cheema MD [Primary Care Provider] - Print Language: Tajik What to do if you have Problems For any increased pain, shortness of breath, bleeding, nausea or vomiting, chestpain, or any unexpected problems, contact your Primary Care Provider. Call [facility] ([phone]) or report tothe closest Emergency Room. Call 911 if necessary. 01/30/25 [id number] Cosigner Signature (if applicable): CC: Dr. Chloe Cheema MD ~ Signed [facility]08-14-2025 Radiology Diagnostic study note [facility] Imaging Services [address] [place], [place] [address] Abdomen/Pelvis W IV Cont ONLY MR#: [id number] Acct: [id number] Name: JERO GARZON Rep #: [id number] : 1955 M 69 From: Phillip Olsen MD PCP: Dr. Chloe Cheema MD Status: REG E R Study:Abdomen/Pelvis W IV Cont ONLY Date of E xam: 01/30/25 Exam# [id number] Ordering Dr: Irina Polo MD PROCEDURE: ABDOMEN/PELVIS W IV CONT ONLY 01/30/2025 REASON FOR EXAM: ABDOMINAL PAIN TECHNIQUE: ABDOMEN/PELVIS W IV CONT ONLY Coronal and Sagittal reconstruction series were provided. One or more dose reduction techniques were used (e.g., Automated exposure control, adjustment of the mA and/or kV according to patient size, use of iterative reconstruction technique. RADIATION DOSE SUMMARY: CTDlvol: 24 mGy DLP: 3391 mGycm COMPARISON: 10/28/2024. FINDINGS: The lung bases are clear. Coronary artery calcifications. The peripheral soft tissues are unremarkable. Mild atherosclerosis of a normal caliber abdominal aorta. No suspicious lymphadenopathy. Small hepatic cyst. The liver is normal airway is unremarkable. Surgically absent gallbladder. The pancreas and spleen are unremarkable. Stable left adrenal 1.6 cm nodule. Right kidney simple cyst. Symmetric enhancement of bilateral kidneys. No hydroureteronephrosis. Theurinary bladder is unremarkable. Penile implant with pump is present. Normal caliber large and small bowel. Diverticulosis. Dense colonic stool. Nosurrounding inflammatory changes. CT/Abdomen/Pelvis W IV Cont ONLY IMPRESSION: No acute abnormalities of the abdomen or pelvis. Diverticulosis. Dense colonic stool which may suggest constipation. Chronic and ancillary findings as above. Reading Location: [facility] CC: Dr. Chapis Polo MD; Dr. Chloe Cheema MD ~ Coding Spec: Signed [facility]08-14-2025 Radiology Diagnostic study note [facility] Imaging Services [address] [place] [address] CTA Head AND Neck W/ Contrast MR#: [id number] Acct: [id number] Name: JERO GARZON Rep #: [id number] : 1955 M 69 From: Christiano Stoner MD PCP: Dr. Chloe Cheema MD Status: REG E R Study:CTA Head AND Neck W/ Contrast Date of E xam: 01/30/25 Exam# [id number] Ordering Dr: Irina Polo MD PROCEDURE: CTA HEAD AND NECK W/ CONTRAST 01/30/2025 REASON FOR EXAM: DIZZINES, SYNCOPAL EPISODES TECHNIQUE: CTA HEAD AND NECK W/ CONTRAST Multiplanar Sagittal and Coronal images were obtained. 3D and MIP post processing was performed. CONTRAST: Isovue 370 VOLUME: 100 mL One or more dose reduction techniques were used (e.g., Automated exposure control, adjustment of the mA and/or kV according to patient size, use of iterative reconstruction technique). RADIATION DOSE SUMMARY: DLP: 3391.85 mGycm COMPARISON: Noncontrast CT head same day 01/30/2025. FINDINGS: CTA HEAD: Patent intracranial arterial vasculature. No large vessel occlusion, flow- limiting stenosis, saccular aneurysm, or vascular malformation identified. CTA NECK: Conventional aortic arch branching. Bilateral cervical carotid and vertebral arteries are widely patent and normal in course and caliber. No aneurysm or dissection. Relatively hypoplastic distal V4 segment of the right vertebralartery compared to the dominant left side. NON-ANGIOGRAPHIC FINDINGS: Mild multilevel degenerative changes of the cervical spine. 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 Mild polypoid mucosal thickening in the right maxillary sinus. CT/CTA Head AND Neck W/ Contrast IMPRESSION: Normal CTA of the head and neck. Reading Location: [facility] CC: Dr. Chapis Polo MD; Dr. Chloe Cheema MD ~ Coding Spec: Signed [facility]08-14-2025 Radiology Diagnostic study note [facility] Imaging Services [address] [place] [address] Brain/Head without Contrast MR#: [id number] Acct: [id number] Name: JERO GARZON Rep #: [id number] : 1955 M 69 From: Phillip Olsen MD PCP: Dr. Chloe Cheema MD Status: REG E R Study:Brain/Head without Contrast Date of Exa m: 01/30/25 Exam# [id number] Ordering Dr: Irina Polo MD PROCEDURE: BRAIN/HEAD WITHOUT CONTRAST 01/30/2025 REASON FOR EXAM: SYNCOPAL EPISODES TECHNIQUE: BRAIN/HEAD WITHOUT CONTRAST Coronal and Sagittal reconstruction series were provided. One or more dose reduction techniques were used (e.g., Automated exposure control, adjustment of the mA and/or kV according to patient size, use of iterative reconstruction technique. RADIATION DOSE SUMMARY: CTDlvol: 24 mGy DLP: 260 mGycm COMPARISON: 02/12/2022. FINDINGS: Mild global parenchymal atrophy. Periventricular white matter hypodensity likely representing mild chronic microvascular ischemia. No evidence of acute hemorrhage or infarction. No extra-axial blood or fluid collections.Right maxillary sinus retention cyst. The mastoid air cells are clear. Calvarial vault and skull base are intact. CT/Brain/Head without Contrast IMPRESSION: No acute intracranial abnormality. Reading Location: [facility] CC: Dr. Chapis Polo MD; Dr. Chloe Cheema MD ~ Coding Spec: Signed [facility]08-14-2025 Radiology Diagnostic study note [facility] Imaging Services [address] [place] [place], [place] [address] Chest 1 View (Portable) MR#: [id number] Acct: [id number] Name: JERO GARZON Rep #: [id number] : 1955 M 69 From: Christiano Stoner MD PCP: Dr. Chloe Cheema MD Status: REG E R Study:Chest 1 View (Portable) Date of Exam: 01/30/25 Exam# [id number] Ordering Dr: Irina Polo MD PROCEDURE: CHEST 1 VIEW (PORTABLE) 01/30/2025 REASON FOR EXAM: CHEST PAIN TECHNIQUE: Frontal view of the chest. COMPARISON: 11/20/2024 FINDINGS: Lungs/Pleura: Clear. No pneumothorax or sizable pleural effusion. Heart/Mediastinum: Within normal limits. Bones/Soft tissues: Mild degenerative changes of the visualized spine. Spinal cord stimulator device lead projects over the lower thoracic spinal canal. RAD/Chest 1 View (Portable) IMPRESSION: No acute cardiopulmonary disease. Reading Location: [id number] CC: Dr. Chapis Polo MD; Dr. Chloe Cheema MD ~ Coding Spec: Signed [facility]08-14-2025 Discharge summary Author Chapis Polo [facility] Note Date/Time January 30, 2025 9: 46pm [facility] Medical Records Department [address] [place] [address] Emergency Department Summary 01/30/25 MR#: [id number] Acct: [id number] Name: JERO GARZON Rep #:[id number] : 1955 69 From: Chapis Polo MD PCP: Dr. Chloe Cheema MD Status:REG E R Location: ED HPI History of Present Illness Chief Complaint: Chest Pain Narrative Narrative: Patient is a 69-year-old male presenting to the emergency department for multiple complaints including chest pain and presyncopal episodes. Patient has extensive past medical history as below. Patient states that over the past weekhe has felt very fatigued. Patient states that he has been trying to work in the garage and anytime he exerts himself he develops black spots in his vision and feels like he is going to pass out. States he is only passed out once. Denies any head injury from this event. He reports midsternal pressure-like chest pain that radiates to the right chest wall. Endorses some intermittent shortness of breath as well. Endorses lower abdominal bloating. Endorses nausea with no vomiting. Denies any diarrhea, dysuria or hematuria. [facility] Medical History Prostate infection History of cardioversion First degree heart block [...] disease) Essential hypertension Atherosclerotic heart disease of [place] coronary artery without angina pectoris Confusion Unstable [...] testosterone 4 pump transdermal DAILY low 11/23/21 01/30/25 History testosterone tamsulosin 0.4 mg capsule 0.4 mg PO DAILY prostate 05/1001/30/25 History amlodipine 5 mg tablet 10 mg (2 x 5 mg) PO DAILY ht n #90 04/08/24 01/30/25 Rx tabs esomeprazole magnesium 40 mg 40 mg PO BID 10/28/24 History capsule,delayed release finasteride 5 mg tablet 5 mg PO DAILY 10/28/2401/30 History losartan 100 mg tablet 100 mg PO DAILY 10/28/24 History multivitamin (Daily Multi-Vitamin 1 tab PO DAILY 10/2801/30/25 History tablet) oxycodone-acetaminophen 5 mg-325 1 tab PO DAILY PRN pa in 10/28/24 Unknown History mg tablet potassium chloride 10 mEq 20 meq PO DAILY 10/28/24 History tablet,extended release atomoxetine 40 mg capsule 100 mg PO DAILY 11/28/24 History semaglutide (weight loss) 0.25 0.25 mg (0.5 mL) subcut QWEEK #2 mL 12/02/24 01/26/25 Rx mg/0.5 mL subcutaneous pen injector (Wegovy) Allergy/AdvReac Type Severity Reaction Status Date / Time Sulfa (Sulfonamide Allergy Unknown Verified 01/30/25 15:46 Antibiotics) Family History Mother CAD (coronary artery [...] you participate in: none ROS ROS ED ROS Narrative See HPI EXAM Physical Exam Narrative Exam Narrative: Vital signs: Reviewed General: Alert and oriented. No acute distress HEENT: Head is normocephalic and atraumatic, sinuses nontender, pupils equal round and reactive. Nares are patent. Oropharynx and throat exams normal. Neck: Supple without lymphadenopathy nontender Cardiovascular: Mildly tachycardic with regular rhythm, no murmurs. No rubs or gallops. Normal S1 and S2 Respiratory: Clear to auscultation bilaterally. No wheezes, rales, rhonchi Abdominal: Soft and mild tenderness to palpation in the lower abdomen. Normal bowel sounds. No guarding or rebound. Nonsurgical abdomen Extremities: No tenderness. No bruising. Normal range of motion. Normal sensation. Skin: No rash or redness. Neurological: Cranial nerves II through XII are grossly intact. Normal strengthand sensation. Normal cerebellar function The rest of the physical exam is unremarkable Const Vital Signs: 01/30/25 15:46 01/30/25 15:57 01/30/25 16:32 Temperature 98.1 F Temperature Source Temporal Pulse Rate 103 H Respiratory Rate 20 H Respiratory Effort Normal Blood Pressure 151/79 H Blood Pressure Mean 103 Pulse Ox 100 100 Oxygen Delivery Method Room Air Room Air 01/30/25 16:45 01/30/25 17:00 01/30/25 18:00 Temperature Temperature Source Pulse Rate 87 86 81 Respiratory Rate 14 14 17 Respiratory Effort Blood Pressure 148/82 H 148/82 H 160/77 H Blood Pressure Mean 104 104 104 Pulse Ox 97 97 98 Oxygen Delivery Method Room Air Room Air Room Air 01/30/25 18:45 01/30/25 19:00 01/30/25 19:56 Temperature 98.6 F Temperature Source Pulse Rate 76 76 75 Respiratory Rate 16 14 16 Respiratory Effort Blood Pressure 149/83 H 134/93 H 146/92 H Blood Pressure Mean 101 105 110 Pulse Ox 96 97 100 Oxygen Delivery Method 01/30/25 19:57 01/30/25 20:00 01/30/25 20:15 Temperature Temperature Source Pulse Rate 77 75 76 Respiratory Rate 16 21 H 15 Respiratory Effort Blood Pressure 146/92 H 143/87 H 132/76 H Blood Pressure Mean 106 104 90 Pulse Ox 99 100 95 Oxygen Delivery Method 01/30/25 21:00 Temperature Temperature Source Pulse Rate 70 Respiratory Rate 17 Respiratory Effort Blood Pressure 143/76 H Blood Pressure Mean 96 Pulse Ox 99 Oxygen Delivery Method MDM MDM MDM Narrative Medical decision making narrative: Patient is a 69-year-old male presenting to the emergency department for multiple complaints including presyncopal episodes and chest pain. Patient was seen and examined. Vitals are stable. Initially patient was mildly tachycardic. He is afebrile saturating 100% on room air. Stable blood pressure. Differential includes but is not limited to: ACS, arrhythmia, intracranial abnormality, pneumonia, sepsis, carotid stenosis, electrolyte abnormality Neuro intact on exam, no deficits. EKG shows sinus tachycardia with a first- degree AV block. No significant ST elevation or depression. No abnormal T waveinversions. No arrhythmia. CBC with no leukocytosis and hemoglobin of 16.6. BMP with slight bump in creatinine at 1.37. Fluid bolus started. Magnesium within normal limits. Glucose of 143. Lactate within normal limits at 1.7. Initial troponin of 31, reflex of 29 and 30. Baseline to compare to was 20 when he was here last. Urinalysis with no evidence of infection. CT brain shows no acute intracranial abnormality. CTA head and neck are normal. CT abdomen pelvis shows no acute findings. Chest x-ray shows no acute radiographic abnormalities. Discussed negative workup with patient. I do find the patient'sstory of presyncopal episodes with any exertion concerning. I recommended he beadmitted for telemetry and further evaluation possibly by cardiology versus neurology. Patient's agreeable with the plan. Hospitalist paged. Impression: Presyncopal episodes chest pain elevated troponin History & Record Review Discussion w/independent historian: Patient and Significant other Lab Data Attestation: I reviewed the patient's lab results. Labs: Laboratory Results - last 24 hr 01/30/25 01/30/25 01/30/25 16:04 17:39 18:01 WBC 8.0 RBC 5.61 Hgb 16.6 H Hct 46.8 MCV 83.4 MCH 29.6 MCHC 35.5 RDW Std Deviation 38.2 RDW Coeff of Lito 12.6 Plt Count 193 MPV 11.2 Immature Gran % (Auto) 0.100 Neut % (Auto) 78.9 H Lymph % (Auto) 13.8 L [place] % (Auto) 6.5 Eos % (Auto) 0.4 Baso % (Auto) 0.3 Absolute Neuts (auto) 6.3 Absolute Lymphs (auto) 1.10 Nucleated RBC % 0 Sodium 141 Potassium 3.7 Chloride 104 Carbon Dioxide 22.1 Anion Gap 15 BUN 14 Creatinine 1.37 H Est GFR (MDRD) Non-Af 57 L BUN/Creatinine Ratio 10.3 Glucose 143 H Lactic Acid 1.7 Calcium 9.5 Magnesium 1.9 Total Bilirubin 0.91 Direct Bilirubin 0.38 H AST 23 ALT 31 Alkaline Phosphatase 62 Troponin T High Sens 31 H D Troponin T Hi Sens 2 Hr 29 H Troponin T Hi Sens 4Hr Total Protein 7.2 Albumin 4.3 Globulin 2.9 Lipase 24 Urine Color Yellow Urine Clarity Clear Urine pH 7.0 Ur Specific [place] 1.005 Urine Protein 15 H Urine Glucose (UA) Normal Urine Ketones Negative Urine Occult Blood Negative Urine Nitrite Negative Urine Bilirubin Negative Urine Urobilinogen Normal Ur Leukocyte Esterase Negative Urine RBC 0 SEEN Urine WBC 0 SEEN Ur Squamous Epith Cells 0 SEEN Urine Bacteria 0 SEEN Urine Mucus 0 SEEN 01/30/25 20:05 WBC RBC Hgb Hct MCV MCH MCHC RDW Std Deviation RDW Coeff of Lito Plt Count MPV Immature Gran % (Auto) Neut % (Auto) Lymph % (Auto) [place] % (Auto) Eos % (Auto) Baso % (Auto) Absolute Neuts (auto) Absolute Lymphs (auto) Nucleated RBC % Sodium Potassium Chloride Carbon Dioxide Anion Gap BUN Creatinine Est GFR (MDRD) Non-Af BUN/Creatinine Ratio Glucose Lactic Acid Calcium Magnesium Total Bilirubin Direct Bilirubin AST ALT Alkaline Phosphatase Troponin T High Sens Troponin T Hi Sens 2 Hr Troponin T Hi Sens 4Hr 30 H Total Protein Albumin Globulin Lipase Urine Color Urine Clarity Urine pH Ur Specific [place] Urine Protein Urine Glucose (UA) Urine Ketones Urine Occult Blood Urine Nitrite Urine Bilirubin Urine Urobilinogen Ur Leukocyte Esterase Urine RBC Urine WBC Ur Squamous Epith Cells Urine Bacteria Urine Mucus Radiography Chest X-Ray - ED: 2 View, Read by ED Physician, No Acute Disease and No Infiltrates Diagnostic Testing: Clinical Impression(s) from Imaging Studies Chest X-Ray 01/30/25 16:45 IMPRESSION: No acute cardiopulmonary disease. Reading Location: [facility] Abdomen/Pelvis CT 01/30/25 16:59 IMPRESSION: No acute abnormalities of the abdomen or pelvis. Diverticulosis. Dense colonic stool which may suggest constipation. Chronic and ancillary findings as above. Reading Location: [facility] Brain CT 01/30/25 16:59 IMPRESSION: No acute intracranial abnormality. Reading Location: [facility] Head/Neck CTA 01/30/25 16:59 IMPRESSION: Normal CTA of the head and neck. Reading Location: [facility] Discharge Plan Triage Chief Complaint: Chest Pain Other Complaint: Weakness ED Provider: Chapis Polo Dx/Rx/DC Orders Prescriptions: No Action tamsulosin 0.4 mg capsule 0.4 mg PO DAILY testosterone 20.25 mg/1.25 gram (1.62 %) gel in metered-dose pump 4 pump transdermal DAILY Patient Comments: APPLY 4 PUMPS DAILY albuterol sulfate 1 INHALER inhaler 1 - 2 puff INHALATION Q6H PRN (Reason: Asthma) esomeprazole magnesium 40 mg capsule,delayed release(DR/EC) 40 mg PO BID Patient Comments: PT ONLY TAKES ONCE A DAY losartan 100 mg tablet 100 mg PO DAILY potassium chloride 10 mEq tablet extended release 20 meq PO DAILY finasteride 5 mg tablet 5 mg PO DAILY multivitamin [Daily Multi-Vitamin] Tablet 1 tab PO DAILY oxycodone-acetaminophen 5-325 mg tablet 1 tab PO DAILY PRN (Reason: pain) atomoxetine 40 mg capsule 100 mg PO DAILY amlodipine 5 mg tablet 10 mg PO DAILY Qty: 90 3RF Wegovy 0.25 mg/0.5 mL pen injector 0.25 mg subcut QWEEK Qty: 2 0RF Rx Instructions: administer weeks 1 through 4 of therapy Primary Care Provider: Chloe Cheema Referrals: Chloe Cheema MD [Primary Care Provider] - Print Language: Tajik What to do if you have Problems For any increased pain, shortness of breath, bleeding, nausea or vomiting, chestpain, or any unexpected problems, contact your Primary Care Provider. Call [facility] ([phone]) or report to the closest Emergency Room. Call 911 if necessary. 01/30/252145 <Electronically signed by Chapis Polo MD> Cosigner Signature (if applicable): CC: Dr. Chloe Cheema MD ~ Signed [facility] Work Phone: 1(296) 643-643208-04-2025 Telephone encounter Note* Telephone Encounter - Isabel Cottrell MA - 01/20/2025 10:37 AM EDT See other TE [facility]08-04-2025 Miscellaneous Notes* Telephone Encounter - Isabel Cottrell MA - 01/20/2025 10:37 AM EDT [facility] other [facility] History of Present illness Narrative* Maria Elena Baconley, [facility] - 12/31/2024 8:30 AM EDT HISTORY AND PHYSICAL Jero Garzon : 1955 REFERRING PHYSICIAN: Chloe Cheema [address] [facility] [address] CHIEF COMPLAINT: Patient presents with: New Patient: Colonoscopy consult - rectal bleeding HPI: Jero is a 69 year old male referred for endoscopy. Jero notes rectal bleeding. Jero notes abdominal pain. -bilateral low belly cramping -relieved after bowel movement Jero notes diarrhea. -when hematochezia is happening it is with diarrhea Jero denies constipation. Jero denies a change in bowel habits. Jero denies melena. Jero notes bright red blood per rectum. -occurs after eating popcorn and peanuts Jero notes hemorrhoids. Jero denies family history of colon issues. Jero notes a distant history of heartburn. -symptoms well controlled on nexium Jero denies dysphagia. Jero notes a distant history of a history of ulcers/ peptic ulcer disease. >10 years ago Jero follows with [facility] for PAF s/p cardioversion (2022) and CAD. Last OV 12/11. Last stress test 12/11 negative for ischemia, EF: 65%. He denies CP, SOB, dizziness, palpitations, syncope, edema, recent hospitalizations Jero has sleep apnea c/w CPAP. Jero has undergone prior endoscopy. Last EGD & colonoscopy was 11/[address] Bennett at [place]. Sedation: MAC Impression: Medium-sized hiatal hernia, irregular [...] serious comorbidity present Coronary artery disease involving [place] coronary artery of [place] heart without angina pectoris Diaphragmatic hernia without [...] Right 1988 LAPS SURG CHOLECYSTECTOMY W/CHOLANGIOGRAPHY 2004 [facility] - Dr. Bales NASAL ENDOS,DIAG,UNI/ BILATERAL 12/01/2024 OPEN REPAIR OF ROTATOR CUFF ACUTE Rotator cuff repair PERCUTANEOUS CORONARY INTERVENTION 2006 stent to LAD REPAIR EPIGASTRIC HERNIA,REDUC 07/19/2023 umbilical TONSILLECTOMY PRIMARY/SECONDARY <AGE 12 Tonsillectomy FAMILY HISTORY Problem Relation Age of Onset Hypertension Mother Heart Mother Stroke Mother Allergies Mother Breast Cancer Mother Heart Father of [place] Allergies Father Allergies Sister Allergies Brother Prostate [...] are equally round, sclera are anicteric, mucous membranesare moist, oropharynx is clear. Neck has no [...] Will plan for lower endoscopy. We discussed therisks and benefits of the planned endoscopy in terms understandable to the patient. I have informedthe patient that complications can occur including failure to complete the endoscopy and perforation. Jero had the opportunity to ask questions concerning the planned endoscopy. Jero freely consents to surgery. I plan to use Golytely bowel preparation Instructed to hold Wegovy for 7 days prior to endoscopy. I have explained to the patient the difference between IV conscious sedation and MAC anesthesia - and I have offered either, according to the patient's wishes. I have explained that with IV conscioussedation there is no anesthesia provider available and therefore there is a limitation of the amount of IV medications that can be given and that the patient may wake up in the middle of the procedure and/or experience pain/discomfort during the procedure. Further discussion was done and the patient was given the opportunity to ask questions and all questions were answered. MAC anesthesia. Jero was counseled that if there are changes [...] edited and updated as necessary. Yesica Bacon APRN.CENTER MEDICAL DIRECTOR documented in this encounterRegency Hospital [facility]07-15-2025 NoteOhio[facility] Center07-14-2025 Telephone encounter Note* Telephone Encounter - Reynaldo Zarate LPN - 12/30/2024 3:42 PM EDT Prescription Refill Information The patient [...] Zarate LPN December 30, 2024 3:42 PM [facility]07-14-2025 Miscellaneous Notes* Telephone Encounter - Reynaldo Zarate LPN - 12/30/2024 3:42 PM EDT Prescription Refill Information The patient [...] 30, 2024 3:42 PM documented in this encounterRegency Hospital [facility] West07-08-2025 NoteOhiohealth [facility] Center07-08-2025 History of Present illness Narrative* Chloe Cheema MD - 12/24/2024 5:36 PM EDT Jero Garzon is a 69-year-old male with a [...] colonoscopy on 12/01/[address] Bennett at [place] revealed diverticuli and poor bowel preparation; recommended [...] weekly for weight loss two weeks ago; Jero has lost 9 lbs. - No adverse [...] Right 1988 LAPS SURG CHOLECYSTECTOMY W/CHOLANGIOGRAPHY 2004 [facility] - Dr. 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 EPIGASTRIC HERNIA,REDUC 07/19/2023 umbilical TONSILLECTOMY PRIMARY/SECONDARY <AGE 12 Tonsillectomy FAMILY HISTORY Problem Relation Age of Onset Hypertension Mother Heart Mother Stroke Mother Allergies Mother Breast Cancer Mother Heart Father of [place] Allergies Father Asthma Daughter Allergies Sister Allergies [...] history andsocial history today. REVIEW OF SYSTEMS Constitutional: (+) [...] Colonoscopy: Diverticuli observed, poor bowel preparation - (2017) Colonoscopy VITALS: BP 140/72 Pulse 86 Wt [...] colonoscopy on 12/01/[address] Bennett at [place] revealed poor bowel preparation and multiple diverticuli; [...] weight loss. 4. Coronary artery disease involving [place] coronary artery of [place] heart without angina pectoris(I25.10) - Recent chest pain episode on 11/20/2024; [...] visit summary for additional instructions to patient) Chloe Cheema MD Recording using mValent software for draft documentation of the visit was discussed with the patient/authorized service center representative; all questions welcomed and answered. Patient/authorized service center representative agreed to proceed documented in this encounterRegency Hospital [facility]07-08-2025 Telephone encounter Note * Telephone Encounter - Ni Hewitt RN - 12/24/2024 3:10 PM EDT Telma Pharmacist calling regarding Wegovy script received today. Pharmacist states order is for 0.25 mg but script directions state to give 0.5 mg. Pharmacist asking if provider could send script for the 0.5 mg? Ni Hewitt RN [facility]07-08-2025 Miscellaneous Notes* Telephone Encounter - Ni Hewitt RN - 12/24/2024 3:10 PM EDT Telma Pharmacist calling regarding Wegovy script received today. Pharmacist states order is for 0.25 mg but script directions state to give 0.5 mg. Pharmacist asking if provider could send script for the 0.5 mg? Ni Wurst, RN documented in this encounterRegency Hospital Cleveland West07-08-2025 Instructions* Patient Instructions* Chloe Cheema MD - 12/24/2024 2:29 PM EDT [...] Weigh yourself and send an update via ChinaPNR or call toward the end of the month with your weight change and how you re feeling on the medication. - Schedule a repeat colonoscopy with the general surgery team (Dr. Bales or his partner Dr. Bennett at [place]) as soon as possible, since your last [...] any further care steps. documented in this encounterRegency Hospital Cleveland West06-12-2025 Evaluation note* Diagnosis Onset Date Resolution Status Admit Date 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 November 28, 2024 9:57am Atrial flutter chronic November 28, 2024 9:57am Essential hypertension chronic Ju 2024 9:57am Obesity chronic November 28 9:57am DEENA (obstructive sleep apnea) chroni c November 28, 2024 9:57am Pure hypercholesterolemia chronic November 28, 2024 9:57am Chest pain acute January 30, 025 11:03pm Pre-syncope acute January 30, 2025 11:03pm Syncope acute January 30, 025 11:03pm [facility] Work Phone: 1(304) 956-482006-12-2025 Evaluation note* Diagnosis Onset Date Resolution Status Admit Date 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 November 28, 2024 9:57am Atrial flutter chronic November 28, 2024 9:57am Essential hypertension chronic 2024 9:57am Obesity chronic November 28 9:57am DEENA (obstructive sleep apnea) chroni c November 28, 2024 9:57am Pure hypercholesterolemia chronic November 28, 2024 9:57am AV block, 3rd degree acute 2024 2:42pm Chest pain acute January 31, 2 025 2:42pm Fatigue acute January 31, 2 025 2:42pm Obesity (BMI 30-39.9) acute Jan 2:42pm Pre-syncope acute January 31, 2025 2:42pm Syncope acute January 31, 2 025 2:42pm 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 January 31 2:42pm Coronary artery disease chronic A ug2024 2:42pm Paroxysmal atrial flutter chronic January 31, 2025 2:42pm [facility] Work Phone: 1(211) 353-646306-12-2025 Evaluation note* Diagnosis Onset Date Resolution Status Admit Date Atrial flutter chronic November 28, 2024 9:57am Essential hypertension chronic 2024 9:57am Obesity chronic November 28 9:57am DEENA (obstructive sleep apnea) chroni c November 28, 2024 9:57am Pure hypercholesterolemia chronic November 28, 2024 9:57am 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 pectoris inactive November 28, 2024 9:57am AV block, 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 st 2024 2:42pm 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 pectoris inactive January 31 2:42pm Chest pain inactive January 31, 2 025 2:42pm Coronary artery disease inactive A ugust 2024 2:42pm Fatigue inactive January 31, 2 025 2:42pm Obesity (BMI 30-39.9) inactive Jan 2:42pm Paroxysmal atrial flutter inactive January 31, 2025 2:42pm Pre-syncope inactive January 31, 2025 2:42pm Syncope inactive January 31, 2 025 2:42pm AV block, 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 Augu st 2024 10:41am Presence of cardiac pacemaker chroni c February 12, 2025 10:41am [facility] Work Phone: 1(442) 627-551506-12-2025 Evaluation note* Diagnosis Onset Date Resolution Status Admit Date Atrial flutter chronic November 28, 2024 9:57am Essential hypertension chronic Ju 2024 9:57am Obesity chronic November 28 9:57am DEENA (obstructive sleep apnea) chroni c November 28, 2024 9:57am Pure hypercholesterolemia chronic November 28, 2024 9:57am 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 pectoris inactive November 28, 2024 9:57am AV block, 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 Augu st 2024 2:42pm 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 pectoris inactive January 31 2:42pm Chest pain inactive January 31, 2 025 2:42pm Coronary artery disease inactive A ug2024 2:42pm Fatigue inactive January 31, 2 025 2:42pm Obesity (BMI 30-39.9) inactive Jan 2:42pm Paroxysmal atrial flutter inactive January 31, 2025 2:42pm Pre-syncope inactive January 31, 2025 2:42pm Syncope inactive January 31, 2 025 2:42pm AV block, 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 Augu st 2024 10:41am Presence of cardiac pacemaker chroni c February 12, 2025 10:41am Fatigue acute February 19, 2025 4:18pm V tach acute February 19, 2025 4:18pm Essential hypertension chronic Se pt2024 4:18pm Presence of cardiac pacemaker chroni c February 19, 2025 4:18pm [facility] Work Phone: 1(282) 689-508406-04-2025 Discharge summary Author Jose Alberto Contreras [facility] Note Date/Time November 20, 2024 1:37p m [facility] Medical Records Department [address] [place] [address] Emergency Department Summary 11/20/24 MR#: [id number] Acct: [id number] Name: JERO GARZON Rep #:[id number] : 1955 69 From: Jose Alberto Contreras MD PCP: Dr. Chloe Cheema MD Status:REG E R Location: ED [...] or orthopnea. 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 [facility] Medical History History of cardioversion First degree [...] disease) Essential hypertension Atherosclerotic heart disease of [place] coronary artery without angina pectoris Confusion Unstable [...] was able to walk to and from [facility] without any significant difficulty here in [...] 82.7 H Lymph % (Auto) 11.7 L [place] % (Auto) 4.4 Eos % (Auto) 0.2 [...] evidence of acute cardiopulmonary pathology. Reading Location: [id number] Rhythm Strip Rhythm Strip: Sinus Rhythm Rate: [...] DAILY Qty: 90 3RF Primary Care Provider: Chloe Cheema Referrals: Karl Vo MD [Med Staff - Active Staff] - (Call KAYLEE for stress appointment time) Print Language: Tajik Disposition Disposition: Home, Self Care What to do if you have Problems For any increased pain, shortness of breath, bleeding, nausea or vomiting, chestpain, or any unexpected problems, contact your Primary Care Provider. Call [facility] ([phone]) or report to the closest Emergency Room. Call 911 if necessary. 11/20/24 2537 <Electronically signed by Jose Alberto Contreras MD> Cosigner Signature (if applicable): CC: Dr. Chloe Cheema MD ~ Signed [facility] Work Phone: 1(129) 326-347106-04-2025 Discharge summary [facility] Medical Records Department [address] [place] [address] Emergency Department Summary 11/20/24 MR#: [id number] Acct: [id number] Name: JERO GARZON Rep #:[id number] : 1955 69 From: Jose Alberto Contreras MD PCP: Dr. Chloe Cheema MD Status:REG E R Location: ED [...] or orthopnea. 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 [facility] Medical History History of cardioversion First degree [...] disease) Essential hypertension Atherosclerotic heart disease of [place] coronary artery without angina pectoris Confusion Unstable [...] was able to walk to and from [facility] without any significant difficulty here in [...] 82.7 H Lymph % (Auto) 11.7 L [place] % (Auto) 4.4 Eos % (Auto) 0.2 [...] evidence of acute cardiopulmonary pathology. Reading Location: [id number] Rhythm Strip Rhythm Strip: Sinus Rhythm Rate: [...] DAILY Qty: 90 3RF Primary Care Provider: Chloe Cheema Referrals: Karl Vo MD [Med Staff - Active Staff] - (Call KAYLEE for stress appointment time) Print Language: Tajik Disposition Disposition: Home, Self Care What to do if you have Problems For any increased pain, shortness of breath, bleeding, nausea or vomiting, chestpain, or any unexpected problems, contact your Primary Care Provider. Call [facility] ([phone]) or report tothe closest Emergency Room. Call 911 if necessary. 11/20/24 1337 Cosigner Signature (if applicable): CC: Dr. Chloe Cheema MD ~ Signed [facility]06-04-2025 Radiology Diagnostic study note [facility] Imaging Services [address] [place] [address] Chest PA and Lateral MR#: [id number] Acct: [id number] Name: JERO GARZON Rep #: [id number] : 1955 M 69 From: Yahir Noel MD PCP: Dr. Chloe Cheema MD Status: REG E R Study:Chest PA and Lateral Date of Exam: 11/20/24 Exam# [id number] Ordering Dr: Evan Contreras MD PROCEDURE: CHEST [...] evidence of acute cardiopulmonary pathology. Reading Location: [id number] CC: Dr. Jose Alberto Contreras MD; Dr. Chloe Cheema MD ~ Coding Spec: Signed [facility] Work Phone: 1(606) 577-966406-02-2025 History of Present illness Narrative* Chelsea Pineda RT(R) - 11/18/2024 12:50 PM EDT Radiology Service Progress Note PATIENT NAME: Jero Garzon DATE OF SERVICE: November 18, 2024 [...] PATIENT PRESENTS WITH AN IMPLANTABLE OR ATTACHED CRYOLITE RECOVERY OPERATOR: No RADIOLOGY DEPARTMENT: General X-ray: Exam(s) Completed: Chest X-Ray PERIPHERAL IV DATA: Not applicable SIGNED BY: RT Mariann(R) November 18, 2024 12:57 PM documented in this encounterRegency Hospital [facility] West06-02-2025 NoteOhio[facility]06-02-2025 NoteOhio[facility] Center06-02-2025 History of Present illness Narrative* Susan Kerr APRN.CENTER MEDICAL DIRECTOR - 11/18/2024 12:29 PM EDT This is a 69 year old male who presents today with: Jero is a 69-year-old male with a history [...] Right 1988 LAPS SURG CHOLECYSTECTOMY W/CHOLANGIOGRAPHY 2004 [facility] - Dr. Bales OPEN REPAIR OF [...] Mother Breast Cancer Mother Heart Father of [place] Allergies Father Asthma Daughter Allergies Sister Allergies [...] needed for worsening/no improvement. Susan Kerr APRN.ROSITA Recording using mValent software for draft documentation of the visit was discussed with the patient/authorized service center representative; all questions welcomed and answered. Patient/authorized service center representative agreed to proceed documented in this encounterRegency Hospital Cleveland West06-02-2025 Instructions* Patient Instructions* Susan Kerr APRN.CNP - 11/18/2024 11:55 AM EDT - Get the chest xray. - Begin doxycycline: take one dose twice daily for 10 days. - Begin prednisone: take one tablet once a day for 5 days. - Continue using your albuterol inhaler and Claritin as you have been. Let us know if no improvement/worsening. documented in this encounterRegency Hospital [facility] West05-12-2025 Radiology Diagnostic study note [facility] Imaging Services [address] [place] [address] Abdomen/Pelvis W IV Cont ONLY MR#: [id number] Acct: [id number] Name: JERO GARZON Rep #: [id number] : 1955 M 69 From: Yannick Russ MD PCP: Dr. Chloe Cheema MD Status: REG E R Study:Abdomen/Pelvis W IV Cont ONLY Date of E xam: 10/28/24 Exam# [id number] Ordering Dr: Aung Mclaughlin DO PROCEDURE: ABDOMEN/PELVIS W IV CONT [...] lower chance of developing HCC. Reading Location: [id number] CC: Dr. Wendy Mclaughlin DO; Dr. Chloe Cheema MD ~ Coding Spec: Signed [facility]05-12-2025 Telephone encounter Note* Telephone Encounter - Chloe Cheema MD - 10/28/2024 8:57 AM EDT agree [facility]05-12-2025 Miscellaneous Notes* Telephone Encounter - Chloe Cheema MD - 10/28/2024 8:57 AM EDT [...] get a friend to take him to [facility] ER. * Telephone Encounter - Ni Hewitt RN - 10/28/2024 8:14 AM EDT Attempted to call patient for further triage regarding MC message received today. No answer. VM left for pt to call PCP office back as soon as possible. Ni Hewitt RN documented in this encounterRegency Hospital [facility] West05-12-2025 Telephone encounter Note * Telephone Encounter - [...] get a friend to take him to [facility] ER. [facility]05-12-2025 Telephone encounter Note* Telephone Encounter - Ni Hewitt RN - 10/28/2024 8:14 AM EDT Attempted to call patient for further triage regarding MC message received today. No answer. VM left for pt to call PCP office back as soon as possible. Ni Hewitt RN [facility]05-05-2025 NoteOhio[facility]05-05-2025 History of Present illness Narrative* Chloe Cheema MD - 10/21/2024 8:42 AM EDT [...] Lymph 1.00 - 4.00 k/uL 0.91 (L) Chaffee% % 9.0 Abs Chaffee <0.87 k/uL 0.40 Eosin% % 1.4 Abs [...] Right 1988 LAPS SURG CHOLECYSTECTOMY W/CHOLANGIOGRAPHY 2004 [facility] - Dr. 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 EPIGASTRIC HERNIA,REDUC 07/19/2023 umbilical TONSILLECTOMY PRIMARY/SECONDARY <AGE 12 Tonsillectomy FAMILY HISTORY Problem Relation Age of Onset Hypertension Mother Heart Mother Stroke Mother Allergies Mother Breast Cancer Mother Heart Father of [place] Allergies Father Asthma Daughter Allergies Sister Allergies [...] - follow labs. Currently only minimally low. Chloe Cheema MD documented in this encounterRegency Hospital [facility] West04-30-2025 Telephone encounter Note * Telephone Encounter - [...] Zarate LPN October 16, 2024 2:11 PM [facility]04-30-2025 Miscellaneous Notes* Telephone Encounter - Reynaldo Zarate [...] 16, 2024 2:11 PM documented in this encounterRegency Hospital Cleveland West04-11-2025 Telephone encounter Note * Telephone Encounter - Chloe Cheema MD - 09/27/2024 9:44 AM EDT Rx sent [facility]04-11-2025 Miscellaneous Notes* Telephone Encounter - Chloe Cheema MD - 09/27/2024 9:44 AM EDT [...] Please review if correct. documented in this encounterRegency Hospital Cleveland West04-11-2025 Telephone encounter Note * Telephone Encounter - [...] pend both rx. Please review if correct. [place] [address]-07-2025 NoteOhiohealth [facility] Medical Center04-07-2025 History of Present illness Narrative* Chloe Cheema MD - 09/23/2024 9:48 AM EDT [...] Right 1988 LAPS SURG CHOLECYSTECTOMY W/CHOLANGIOGRAPHY 2004 [facility] - Dr. 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 EPIGASTRIC HERNIA,REDUC 07/19/2023 umbilical TONSILLECTOMY PRIMARY/SECONDARY <AGE 12 Tonsillectomy FAMILY HISTORY Problem Relation Age of Onset Hypertension Mother Heart Mother Stroke Mother Allergies Mother Breast Cancer Mother Heart Father of [place] Allergies Father Asthma Daughter Allergies Sister Allergies [...] increase meds. - LOSARTAN 100 MG TABLET Chloe Cheema MD RTO in one month or prn documented in this encounterRegency Hospital Cleveland West04-03-2025 Telephone encounter Note * Telephone Encounter - Latisha Hassan RN - 09/19/2024 10:27 AM EDT Pt called and is notified of providers message. Pt voices understanding and would like to have an appointment and discuss with Dr Cheema. Pt scheduled 09/23/[address] Cheema. Latisha Hassan RN [facility]04-03-2025 Miscellaneous Notes* Telephone Encounter - Latisha Hassan RN - 09/19/2024 10:27 AM EDT Pt called and is notified of providers message. Pt voices understanding and would like to have an appointment and discuss with Dr Cheema. Pt scheduled 09/23/[address] Cheema. Latisha Hassan RN * Telephone Encounter - Chloe Cheema MD - 09/19/2024 9:02 AM EDT [...] you talk with someone?\Dr Cheema Written by Chloe Cheema MD on 09/18/2024 12:29 PM EDT documented in this encounterRegency Hospital Cleveland West04-03-2025 Telephone encounter Note * Telephone Encounter - Chloe Cheema MD - 09/19/2024 9:02 AM EDT [...] you talk with someone?\Dr Cheema Written by Chloe Cheema MD on 09/18/2024 12:29 PM EDT [facility]03-26-2025 NoteOhio[facility] Center03-26-2025 History of Present illness Narrative* Chloe Cheema MD - 09/11/2024 8:25 AM EDT [...] occasional cough. Declines work up. [facility] Just had testosterone checked by Dr Ramos, urology. Still seeing [facility]. MEDICATIONS: Current Outpatient Medications Medication [...] Right 1988 LAPS SURG CHOLECYSTECTOMY W/CHOLANGIOGRAPHY 2004 [facility] - Dr. 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 EPIGASTRIC HERNIA,REDUC 07/19/2023 umbilical TONSILLECTOMY PRIMARY/SECONDARY <AGE 12 Tonsillectomy FAMILY HISTORY Problem Relation Age of Onset Hypertension Mother Heart Mother Stroke Mother Allergies Mother Breast Cancer Mother Heart Father of [place] Allergies Father Asthma Daughter Allergies Sister Allergies [...] refill. ASSESSMENT/PLAN: 1. Coronary artery disease involving [place] coronary artery of [place] heart without angina pectoris- ICD9: 414.01, ICD10: I25.10 (primary diagnosis) - stable. Follow with [facility]. 2. Hyperlipidemia, unspecified hyperlipidemia type [...] COMPREHENSIVE METABOLIC PANEL - SEDIMENTATION RATE, WESTERGREN Chloe Cheema MD Bp check in one month and rto in six months. documented in this encounterRegency Hospital Cleveland West02-28-2025 Evaluation note* Diagnosis Onset Date Resolution Status Admit Date 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 August 16 10:25am Atrial flutter chronic July 212024 10:25am Essential hypertension chronic 2024 10:25am Pure hypercholesterolemia chronic August 16, 2024 10:25am [facility] Work Phone: 1(552) 533-988702-28-2025 Evaluation note* Diagnosis Onset Date Resolution Status Admit Date 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 August 16 10:25am Atrial flutter chronic July 212024 10:25am Essential hypertension chronic Fe 2024 10:25am Pure hypercholesterolemia chronic August 16, 2024 10:25am 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 November 28, 2024 9:57am Atrial flutter chronic November 28, 2024 9:57am Essential hypertension chronic Ju 2024 9:57am Obesity chronic November 28 9:57am DEENA (obstructive sleep apnea) chroni c November 28, 2024 9:57am Pure hypercholesterolemia chronic November 28, 2024 9:57am [facility] Work Phone: [phone]) 269-289702-28-2025 Telephone encounter Note* Telephone Encounter - Giselle [...] LUISA Martin August 16, 2024 10:16 AM [facility]02-28-2025 Miscellaneous Notes* Telephone Encounter - Giselle Green [...] 16, 2024 10:16 AM documented in this encounterRegency Hospital [facility]01-24-2025 Miscellaneous Notes* Telephone Encounter - Sandy Velez LPN - 07/12/2024 11:35 AM EST Ratna Mariano called for the last couple office visits to be faxed to them. Identified pt with name and date of . . Ratna looking for mention of c-pap. I did not see anything,. Ratna will look over. Done. Sandy Velez LPN documented in this encounterRegency Hospital [facility]01-24-2025 Telephone encounter Note * Telephone Encounter - Sandy Velez LPN - 07/12/2024 11:35 AM EST Ratna with [facility] called for the last couple office visits to be faxed to them. Identified pt with name and date of . . Ratna looking for mention of c-pap. I did not see anything,. Ratna will look over. Done. Sandy Velez LPN [facility]01-20-2025 History of Present illness Narrative* Chelsea Pineda RT(R) - 07/08/2024 10:00 AM EST Radiology Service Progress Note PATIENT NAME: Jero Garzon DATE OF SERVICE: July 08, 2024 [...] PATIENT PRESENTS WITH AN IMPLANTABLE OR ATTACHED CRYOLITE RECOVERY OPERATOR: No RADIOLOGY DEPARTMENT: General X-ray: Exam(s) Completed: Chest X-Ray PERIPHERAL IV DATA: Not applicable SIGNED BY: RT Mariann(R) July 08, 2024 10:04 AM documented in this encounterRegency Hospital [facility]01-20-2025 [facility]Ohio[facility]-2025 NoteOhio[facility]01-20-2025 History of Present illness Narrative* Chloe Cheema MD - 07/08/2024 9:06 AM EST [...] Abs Lymph 1.00 - 4.00 k/uL 1.20 [place]% % 8.1 Abs [place] <0.87 k/uL 0.60 Eosin% % 0.9 Abs [...] Right 1988 LAPS SURG CHOLECYSTECTOMY W/CHOLANGIOGRAPHY 2004 [facility] - Dr. 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 EPIGASTRIC HERNIA,REDUC 07/19/2023 umbilical TONSILLECTOMY PRIMARY/SECONDARY <AGE 12 Tonsillectomy FAMILY HISTORY Problem Relation Age of Onset Hypertension Mother Heart Mother Stroke Mother Allergies Mother Breast Cancer Mother Heart Father of [place] Allergies Father Asthma Daughter Allergies Sister Allergies [...] ICD9: 276.8, ICD10: E87.6 - as above. Chloe Cheema MD documented in this encounterRegency Hospital [facility]01-13-2025 Telephone encounter Note * Telephone Encounter - [...] Cope LPN July 01, 2024 12:28 PM [facility]01-13-2025 Miscellaneous Notes* Telephone Encounter - Fouzia Cope [...] 01, 2024 12:28 PM documented in this encounterRegency Hospital [facility] West01-07-2025 Telephone encounter Note * Telephone Encounter - Sincere Pickard RN - 06/25/2024 2:47 PM EST Phoned pt and given provider's message below with verbalized understanding. Pt agreeable. [facility]01-07-2025 Miscellaneous Notes* Telephone Encounter - Sincere Pickard RN - 06/25/2024 2:47 PM EST Phoned pt and given provider's message below with verbalized understanding. Pt agreeable. * Telephone Encounter - Chloe Cheema MD - 06/25/2024 12:37 PM EST [...] Jerilyn Henry MA * Telephone Encounter - Chloe Cheema MD - 06/25/2024 8:59 AM EST His labs are overall ok other than potassium is slightly low. Make sure taking his potassium. His sugar is up although that could be residual from his prednisone. Let me know about the potassium . Either way I would recheck labs in two weeks. documented in this encounterRegency Hospital [facility] West01-07-2025 Telephone encounter Note * Telephone Encounter - Chloe Cheema MD - 06/25/2024 12:37 PM EST If not taking a water pill should not necessarily require constant potassium. Can come from things like diarrhea or vomiting as well. Lets recheck and see what the numbers show [facility]01-07-2025 Telephone encounter Note* Telephone Encounter - Jerilyn Henry MA - 06/25/2024 9:52 AM EST Patient informed. He has been taking his potassium faithfully. Has not missed doses. Knows that his numbers have beentrending low. He is wondering if he should increase the potassium? Advised him to repeat labs in two weeks. He verbalized understanding. Jerilyn Henry MA [facility]01-07-2025 Telephone encounter Note* Telephone Encounter - Chloe Cheema MD - 06/25/2024 8:59 AM EST His labs are overall ok other than potassium is slightly low. Make sure taking his potassium. His sugar is up although that could be residual from his prednisone. Let me know about the potassium . Either way I would recheck labs in two weeks. [facility]01-06-2025 NoteOhio[facility]01-06-2025 History of Present illness Narrative* Chloe Cheema MD - 06/24/2024 9:05 AM EST [...] Right 1988 LAPS SURG CHOLECYSTECTOMY W/CHOLANGIOGRAPHY 2004 [facility] - Dr. 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 EPIGASTRIC HERNIA,REDUC 07/19/2023 umbilical TONSILLECTOMY PRIMARY/SECONDARY <AGE 12 Tonsillectomy FAMILY HISTORY Problem Relation Age of Onset Hypertension Mother Heart Mother Stroke Mother Allergies Mother Breast Cancer Mother Heart Father of [place] Allergies Father Asthma Daughter Allergies Sister Allergies [...] - D-DIMER - PREDNISONE 20 MG TABLET Chloe Cheema MD RTO in two weeks or prn documented in this encounterRegency Hospital [facility]12-30-2024 Telephone encounter Note * Telephone Encounter - Brandie Lange LPN - 06/17/2024 4:01 PM EST Patient notified. [facility]12-30-2024 Miscellaneous Notes* Telephone Encounter - Brandie Lange LPN - 06/17/2024 4:01 PM EST Patient notified. * Telephone Encounter - Chloe Cheema MD - 06/17/2024 3:43 PM EST ?? Shows small pneumonia on left. Doxycycline should cover. Follow up with one of us next week. Use albuterol and prednisone Can add amoxil to be on the safe side to his doxy. Take both. Call if worsen at all. documented in this encounterRegency Hospital [facility] West12-30-2024 Telephone encounter Note * Telephone Encounter - Chloe Cheema MD - 06/17/2024 3:43 PM EST ?? Shows small pneumonia on left. Doxycycline should cover. Follow up with one of us next week. Use albuterol and prednisone Can add amoxil to be on the safe side to his doxy. Take both. Call if worsen at all. [facility]12-30-2024 History of Present illness Narrative* Chelsea Pineda RT(R) - 06/17/2024 3:00 PM EST Radiology Service Progress Note PATIENT NAME: Jero Garzon DATE OF SERVICE: June 17, 2024 [...] PATIENT PRESENTS WITH AN IMPLANTABLE OR ATTACHED CRYOLITE RECOVERY OPERATOR: No RADIOLOGY DEPARTMENT: General X-ray: Exam(s) Completed: Chest X-Ray PERIPHERAL IV DATA: Not applicable SIGNED BY: RT Mariann(R) June 17, 2024 3:08 PM documented in this encounterRegency Hospital [facility]12-30-2024 NoteOhio[facility] Center12-30-2024 NoteOhio[facility]12-30-2024 History of Present illness Narrative* Chloe Cheema MD - 06/17/2024 2:24 PM EST [...] Right 1988 LAPS SURG CHOLECYSTECTOMY W/CHOLANGIOGRAPHY 2004 [facility] - Dr. 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 EPIGASTRIC HERNIA,REDUC 07/19/2023 umbilical TONSILLECTOMY PRIMARY/SECONDARY <AGE 12 Tonsillectomy FAMILY HISTORY Problem Relation Age of Onset Hypertension Mother Heart Mother Stroke Mother Allergies Mother Breast Cancer Mother Heart Father of [place] Allergies Father Asthma Daughter Allergies Sister Allergies [...] answered. Patient expressed understanding of treatment plan. Chloe Cheema MD documented in this encounterRegency Hospital [facility] West12-30-2024 Telephone encounter Note * Telephone Encounter - Brandie Lange LPN - 06/17/2024 11:51 AM EST Scheduled. [facility]12-30-2024 Miscellaneous Notes* Telephone Encounter - Brandie Lange LPN - 06/17/2024 11:51 AM EST Scheduled. * Telephone Encounter - Chloe Cheema MD - 06/17/2024 11:27 AM EST [...] 17, 2024 10:42 AM documented in this encounterRegency Hospital [facility] West12-30-2024 Telephone encounter Note * Telephone Encounter - Chloe Cheema MD - 06/17/2024 11:27 AM EST Needs to see one of us if that bad [facility]12-30-2024 Telephone encounter Note* Telephone Encounter - Brandie Lange LPN - 06/17/2024 11:04 AM EST He was seen in 06/13 and treated with Doxy. [facility]12-30-2024 Telephone encounter Note* Telephone Encounter - Radha Lawson - 06/17/2024 10:41 AM EST Patient calling in to request an order for an xray of his chest. He feels his cold going into his chest and has concerns of pneumonia. Please review and advise patient, okay to leave detailed message. Radha Lawson June 17, 2024 10:42 AM [facility]12-26-2024 NoteOhio[facility] Center12-26-2024 History of Present illness Narrative* Carolann Lucas APRN.ROSITA - 06/13/2024 4:02 PM EST Subjective The history is provided by the patient. No english language learner tutor was used. JOHNATHON Garzon is a 68 [...] have confirmed and edited as necessary, the [facility] Review of Systems Constitutional: Negative for [...] indetail warranting prompt ER evaluation. Carolann Lucas APRN.CNP documented in this encounterRegency Hospital [facility]11-08-2024 Telephone encounter Note * Telephone Encounter - Sincere Pickard RN - 04/26/2024 12:39 PM EST Spoke with Amanda at [facility] Main lab, who states they will be able to add the hgba1c with the blood collected yesterday. [facility]11-08-2024 Miscellaneous Notes* Telephone Encounter - Sincere Pickard RN - 04/26/2024 12:39 PM EST Spoke with Amanda at [facility] Main lab, who states they will be able to add the hgba1c with the blood collected yesterday. * Telephone Encounter - Lisa Javed APRN.CNP - 04/26/2024 10:21 AM EST Please see if lab can add on A1c. His blood sugar was elevated- if not he will need to come back in. Lisa Javed APRN.CNP documented in this encounterRegency Hospital [facility]11-08-2024 Telephone encounter Note * Telephone Encounter - Lisa Javed APRN.CNP - 04/26/2024 10:21 AM EST Please see if lab can add on A1c. His blood sugar was elevated- if not he will need to come back in. Lisa Javed APRN.CNP [facility]11-07-2024 History of Present illness Narrative* Luda Arriaga RT(R) - 04/25/2024 2:20 PM EST Radiology Service Progress Note PATIENT NAME: Jero Garzon DATE OF SERVICE: April 25, 2024 [...] PATIENT PRESENTS WITH AN IMPLANTABLE OR ATTACHED CRYOLITE RECOVERY OPERATOR: No RADIOLOGY DEPARTMENT: General X-ray: Exam(s) Completed: Chest X-Ray PERIPHERAL IV DATA: Not applicable SIGNED BY: RT Buster(R) April 25, 2024 2:05 PM documented in this encounterRegency Hospital [facility]11-07-2024 NoteOhio[facility]11-07-2024 NoteOhio[facility]11-07-2024 History of Present illness Narrative* Lisa Javed APRN.CNP - 04/25/2024 1:21 PM EST 04/25/2024 Patient presents with: Dizziness: X 1 week SUBJECTIVE: This is a 68 year old that is here today for Above Complaints. For the last week has had dizziness. Described as wearing bifocals and trying to walk down the stairs. [place] like he was spinning around this morning. [...] suspicious rashes or lesions to exposed skin [place]: Horizontal, torsional and up beating nystagmus elicited [...] ER with red flag symptoms Lisa Javed APRN.CENTER MEDICAL DIRECTOR Prescription instructions reviewed with patient as applicable. [...] Level: 4 - Moderate documented in this encounterRegency Hospital [facility] West11-07-2024 Telephone encounter Note * Telephone Encounter - [...] has NOT been evaluated by doctor (or EPITAXIAL REACTOR OPERATOR/PA) for this (Exception: Dizziness caused by heat [...] in sweat; fatigue Protocols used: Dizziness - [id number] [facility]11-07-2024 Miscellaneous Notes* Telephone Encounter - Allison Tavares [...] has NOT been evaluated by doctor (or EPITAXIAL REACTOR OPERATOR/PA) for this (Exception: Dizziness caused by heat [...] in sweat; fatigue Protocols used: Dizziness - [id number] documented in this encounterRegency Hospital [facility] West10-23-2024 History of Present illness Narrative* Rojas Dominguez MD - 04/10/2024 11:45 AM EDT Chief Complaint Patient presents with: URI: X 1 week HPI Jero Garzon is a 68 year old male [...] Right 1988 LAPS SURG CHOLECYSTECTOMY W/CHOLANGIOGRAPHY 2004 [facility] - Dr. Bales OPEN REPAIR OF ROTATOR CUFF ACUTE Rotator cuff repair PERCUTANEOUS CORONARY INTERVENTION 2007 stent to LAD REPAIR EPIGASTRIC HERNIA,REDUC 07/19/2023 umbilical TONSILLECTOMY PRIMARY/SECONDARY <AGE 12 Tonsillectomy Family History FAMILY HISTORY Problem Relation Age of Onset Hypertension Mother Heart Mother Stroke Mother Allergies Mother Breast Cancer Mother Heart Father of [place] Allergies Father Asthma Daughter Allergies Sister Allergies [...] TABLET Rojas Dominguez MD documented in this encounterRegency Hospital [facility]10-23-2024 NoteOhio[facility] Center09-25-2024 NoteOhio[facility] Center09-25-2024 History of Present illness Narrative* Chloe Cheema MD - 03/13/2024 9:03 AM EDT [...] Lymph 1.00 - 4.00 k/uL 0.82 (L) [place]% % 7.5 Abs [place] <0.87 k/uL 0.31 Eosin% % 1.4 Abs [...] Right 1988 LAPS SURG CHOLECYSTECTOMY W/CHOLANGIOGRAPHY 2004 [facility] - Dr. 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 EPIGASTRIC HERNIA,REDUC 07/19/2023 umbilical TONSILLECTOMY PRIMARY/SECONDARY <AGE 12 Tonsillectomy FAMILY HISTORY Problem Relation Age of Onset Hypertension Mother Heart Mother Stroke Mother Allergies Mother Breast Cancer Mother Heart Father of [place] Allergies Father Asthma Daughter Allergies Sister Allergies [...] - ICD9: 787.91, ICD10: R19.7 - stable. Chloe Cheema MD documented in this encounterRegency Hospital [facility] West09-20-2024 Telephone encounter Note * Telephone Encounter - Asuncion Robertson LPN - 03/08/2024 4:41 PM EDT Phoned patient and went over results, notes from Dr Cheema with understanding. Patient will take 2 tablets of potassium with supper tonight and keep his appt on Monday. [facility]09-20-2024 Miscellaneous Notes* Telephone Encounter - Asuncion Robertson LPN - 03/08/2024 4:41 PM EDT Phoned patient and went over results, notes from Dr Cheema with understanding. Patient will take 2 tablets of potassium with supper tonight and keep his appt on Monday. * Telephone Encounter - Chloe Cheema MD - 03/08/2024 4:[address] was ok. Potassium was slightly low. I have him taking potassium. Can take an extra dose today, keep follow up next week. No signs of diverticulitis. documented in this encounterRegency Hospital [facility] West09-20-2024 Telephone encounter Note * Telephone Encounter - Chloe Cheema MD - 03/08/2024 4:[address] was ok. Potassium was slightly low. I have him taking potassium. Can take an extra dose today, keep follow up next week. No signs of diverticulitis. [facility]09-20-2024 History of Present illness Narrative* Vandana Singh RT(R) - 03/08/2024 4:00 PM EDT Radiology [...] PATIENT PRESENTS WITH AN IMPLANTABLE OR ATTACHED CRYOLITE RECOVERY OPERATOR: No ALLERGIES: Reviewed and unchanged CONTRAST ALLERGY: [...] Completed: Abdomen/Pelvis SIGNATURE: RT Yamile(R) PATIENT NAME: Jero Garzon DATE: March 08, 2024 TIME: 4:02 PM documented in this encounterRegency Hospital [facility] West09-20-2024 NoteHNO ID: [id number] Author: VANDANA SINGH RT(R) Service: Radiology Author Type: Technologist [...] PATIENT PRESENTS WITH AN IMPLANTABLE OR ATTACHED CRYOLITE RECOVERY OPERATOR: No ALLERGIES: Reviewed and unchanged CONTRAST ALLERGY: [...] Completed: Abdomen/Pelvis SIGNATURE: RT Yamile(R) PATIENT NAME: Jero Garzon DATE: March 08, 2024 TIME: 4:02 [facility]09-20-2024 NoteOhio[facility] Center09-20-2024 History of Present illness Narrative* Chloe Cheema MD - 03/08/2024 9:36 AM EDT [...] pressure in his lower bowel at times. [place]: Thinks rosster is helping his focus and finish sentences [...] Right 1988 LAPS SURG CHOLECYSTECTOMY W/CHOLANGIOGRAPHY 2004 [facility] - Dr. 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 EPIGASTRIC HERNIA,REDUC 07/19/2023 umbilical TONSILLECTOMY PRIMARY/SECONDARY <AGE 12 Tonsillectomy FAMILY HISTORY Problem Relation Age of Onset Hypertension Mother Heart Mother Stroke Mother Allergies Mother Breast Cancer Mother Heart Father of [place] Allergies Father Asthma Daughter Allergies Sister Allergies [...] detail. BP Controlled (<130/80) Never done Covid-19 Vaccine() due on 02/18/2024 VITALS: BP 148/82 Pulse [...] tenderness ASSESSMENT/PLAN: 1. Coronary artery disease involving [place] coronary artery of [place] heart without angina pectoris- ICD9: 414.01, ICD10: I25.10 (primary diagnosis) - continue to follow with [facility]. 2. Hyperlipidemia, unspecified hyperlipidemia type [...] URINE CULTURE - CT ABD/PEL W IVCON Chloe Cheema MD RTO early next weeks. documented in this encounterRegency Hospital [facility] West07-23-2024 Instructions* Patient Instructions* Beverley Casas APRN.CNP - 01/09/2024 3:52 PM EDT 1) Paxlovid ordered 2) Hold atorvastatin while on medication 3) Rest & plenty of fluids 4) See Susan 01/26/24 documented in this encounterRegency Hospital [facility] West07-23-2024 History of Present illness Narrative* Beverley Casas APRN.CNP - 01/09/2024 3:40 PM EDT This Team Access Model visit is a phone encounter. It required patient-provider interaction for themedical decision making as documented below. Chief Reason For Appointment No chief complaint on file. [id number] and people from was sick. Jero Garzon is a 68 year old male [...] Specialists/Other Healthcare Providers Seen: Patient Care Team: hCloe Cheema MD as PCP - General (Family [...] - 12/25/2013 Comment: 02/29/20 admit ED to [facility] chest pain,HUGGINS . EKG no changes. [...] Right 1988 LAPS SURG CHOLECYSTECTOMY W/CHOLANGIOGRAPHY 2004 [facility] - Dr. Bales OPEN REPAIR OF [...] or as needed for worsening/no improvement. Beverley Casas APRN.ROSITA Follow Up Plans: 01/26/24 Nurse to discuss sign up for my chart if applies. Send email link after confirming email address documented in this encounterRegency Hospital [facility] West07-12-2024 History of Present illness Narrative* Chloe Cheema MD - 12/29/2023 8:00 AM EDT [...] Right 1988 LAPS SURG CHOLECYSTECTOMY W/CHOLANGIOGRAPHY 2004 [facility] - Dr. 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 EPIGASTRIC HERNIA,REDUC 07/19/2023 umbilical TONSILLECTOMY PRIMARY/SECONDARY <AGE 12 Tonsillectomy FAMILY HISTORY Problem Relation Age of Onset Hypertension Mother Heart Mother Stroke Mother Allergies Mother Breast Cancer Mother Heart Father of [place] Allergies Father Asthma Daughter Allergies Sister Allergies [...] no further intervention at this time Covid-19 Vaccine( season) due on 11/24/2023 VITALS: BP 176/78 Pulse [...] may need to consider changing meds slightly. Chloe Cheema MD RTO in one month documented in this encounterRegency Hospital [facility] West06-26-2024 Telephone encounter Note * Telephone Encounter - Sara Maria LPN - 12/13/2023 4:08 PM EDT Pt notified of results & all instructions, pt voiced understanding. Sara Maria LPN [facility]06-26-2024 Miscellaneous Notes* Telephone Encounter - Sara Maria [...] as requested. * Telephone Encounter - Brenda Louis, ERASMO - 12/13/2023 12:29 PM EDT Dyana with [facility] hospital calls to request order be changed to CT A Chest with and without contrast. Couldn't find that order to pend. Requests order be faxed back to [phone]. Brenda Louis, RN * Telephone Encounter - Reynaldo Zarate LPN - 12/13/2023 11:26 AM EDT Phoned [facility], order faxed. Pt can be scanned as soon as possible. Reynaldo Zarate LPN * Telephone Encounter - Susan Kerr APRN.CNP - 12/13/2023 11:01 AM EDT Pt schedule for stat CT at [place] at 3:00. Can we see if [facility] has anything sooner? Susan Kerr APRN.ROSITA documented in this encounterRegency Hospital [facility] West06-26-2024 Telephone encounter Note * Telephone Encounter - [...] to the ER with any severe symptoms. [facility]06-26-2024 Telephone encounter Note* Telephone Encounter - Reynaldo Zarate LPN - 12/13/2023 1:09 PM EDT Order faxed. Will leave encounter open until results recieved. Reynaldo Zarate LPN [facility]06-26-2024 Telephone encounter Note* Telephone Encounter - Susan Kerr APRN.ROSITA - 12/13/2023 12:45 PM EDT Order placed. Please fax, as requested. [facility]06-26-2024 Telephone encounter Note* Telephone Encounter - Brenda Louis RN - 12/13/2023 12:29 PM EDT Dyana with [facility] hospital calls to request order be changed to CT A Chest with and without contrast. Couldn't find that order to pend. Requests order be faxed back to [phone]. Brenda Louis RN [facility]06-26-2024 Telephone encounter Note* Telephone Encounter - Reynaldo Zarate LPN - 12/13/2023 11:26 AM EDT Phoned [facility], order faxed. Pt can be scanned as soon as possible. Reynaldo Zarate LPN [facility]06-26-2024 Telephone encounter Note* Telephone Encounter - Susan Kerr APRN.CNP - 12/13/2023 11:01 AM EDT Pt schedule for stat CT at [place] at 3:00. Can we see if [facility] has anything sooner? Susan Kerr APRN.CENTER MEDICAL DIRECTOR [facility]06-26-2024 Instructions* Patient Instructions* Susan Kerr APRN.CNP - 12/13/2023 10:08 AM EDT Get stat CT documented in this encounterRegency Hospital Cleveland West06-26-2024 History of Present illness Narrative* Susan Kerr APRN.CNP - 12/13/2023 9:36 AM EDT This is a 68 year old male who presents today with: Patient presents with: Acute Visit: Shortness of breath, dizziness, cough, body aches x 1 week HISTORY OF PRESENT ILLNESS: Jero Garzon is a 68 year old male. Patient presents with: Acute Visit: Shortness of breath, dizziness, cough, body aches x 1 week Pt presents with trouble breathing, dizzy, aching, feeling rotten Started 1 week ago Couple days before started not feeling well, tried claritin and changing CPAP tubing driving up to [place], really hot, 'everything went black', pt lowered [...] relief R sided chest and back pain 08/26, worse with deep breathing Chest is burning with deep breaths Back is sharp pain Pt has been off his eliquis and just restarted yesterday. Hx of PE X 2. Hx of pneumonia. Traveled to [place] a couple of weeks ago. No fevers/chills Body aches Dizziness Nausea and vomiting last week but nothing now Constipation, abdomen tenderness Wears CPAP at night Recent travel to [place] a few weeks ago Recently had pneumonia [...] Right 1988 LAPS SURG CHOLECYSTECTOMY W/CHOLANGIOGRAPHY 2004 [facility] - Dr. Blaes OPEN REPAIR OF ROTATOR CUFF ACUTE Rotator [...] Mother Breast Cancer Mother Heart Father of [place] Allergies Father Asthma Daughter Allergies Sister Allergies [...] agrees with the plan. documented in this encounterRegency Hospital Cleveland West06-14-2024 Telephone encounter Note * Telephone Encounter - Dionisio Chavez LPN - 12/01/2023 11:49 AM EDT Patient MyChart message requesting the following refill Refill(s) Requested: Requested Prescriptions Pending Prescriptions Disp Refills potassium chloride (K-TAB) 10 mEq tablet 180 tablet 1 Sig: Take 2 tablets by mouth once daily. ALLERGIES Allergen Reactions Sulfa (Sulfonamide * Rash (home) [phone] (cell) Last Office Visit Date: 11/29/2023 Last Distance Health Visit: 10/25/2023 Future Appointment: 12/22/2023 The patients preferred pharmacy has been captured for this encounter? yes Request is for script(s) to be escript to pharmacy. Dionisio Chavez LPN [facility]06-14-2024 Miscellaneous Notes* Telephone Encounter - Dionisio Chavez LPN - 12/01/2023 11:49 AM EDT Patient MyChart message requesting the following refill Refill(s) Requested: Requested Prescriptions Pending Prescriptions Disp Refills potassium chloride (K-TAB) 10 mEq tablet 180 tablet 1 Sig: Take 2 tablets by mouth once daily. ALLERGIES Allergen Reactions Sulfa (Sulfonamide * Rash (home) [phone] (cell) Last Office Visit Date: 11/29/2023 Last Distance Health Visit: 10/25/2023 Future Appointment: 12/22/2023 The patients preferred pharmacy has been captured for this encounter? yes Request is for script(s) to be escript to pharmacy. Dionisio Chavez LPN documented in this encounterRegency Hospital [facility]06-12-[facility] History of Present illness Narrative* Chloe Cheema MD - 11/29/2023 1:55 PM EDT [...] Right 1988 LAPS SURG CHOLECYSTECTOMY W/CHOLANGIOGRAPHY 2004 [facility] - Dr. Bales OPEN REPAIR OF ROTATOR CUFF ACUTE Rotator cuff repair PERCUTANEOUS CORONARY INTERVENTION 2007 stent to LAD REPAIR EPIGASTRIC HERNIA,REDUC 07/19/2023 umbilical TONSILLECTOMY PRIMARY/SECONDARY <AGE 12 Tonsillectomy FAMILY HISTORY Problem Relation Age of Onset Hypertension Mother Heart Mother Stroke Mother Allergies Mother Breast Cancer Mother Heart Father of [place] Allergies Father Asthma Daughter Allergies Sister Allergies [...] - PNEUMOCOCCAL VACCINE, 20 VALENT (PREVNAR 20) Chloe Cheema MD documented in this encounterRegency Hospital [facility]05-08-2024 History of Present illness Narrative* Chloe Cheema MD - 10/25/2023 1:00 PM EDT [...] visit. Either the patient or their legal service center representative has been informed of the risks [...] Right 1988 LAPS SURG CHOLECYSTECTOMY W/CHOLANGIOGRAPHY 2004 [facility] - Dr. 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 EPIGASTRIC HERNIA,REDUC 07/19/2023 umbilical TONSILLECTOMY PRIMARY/SECONDARY <AGE 12 Tonsillectomy FAMILY HISTORY Problem Relation Age of Onset Hypertension Mother Heart Mother Stroke Mother Allergies Mother Breast Cancer Mother Heart Father of [place] Allergies Father Asthma Daughter Allergies Sister Allergies [...] increase dose. - ATOMOXETINE 40 MG CAPSULE Chloe Cheema MD RTO in one month I spent 15 minutes in the visit, with more than 50% of the total lnsn-gf-yhdw time of the visit in counseling / coordination of care. documented in this encounterRegency Hospital [facility]03-21-2024 Miscellaneous Notes* Telephone Encounter - Chloe Cheema MD - 09/07/2023 7:57 AM EDT Labs are stable other than sugar being up. Recheck A1c. documented in this encounterRegency Hospital [facility]03-19-2024 History of Present illness Narrative* Chloe Cheema MD - 09/05/2023 4:04 PM EDT [...] Right 1988 LAPS SURG CHOLECYSTECTOMY W/CHOLANGIOGRAPHY 2004 [facility] - Dr. 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 EPIGASTRIC HERNIA,REDUC 07/19/2023 umbilical TONSILLECTOMY PRIMARY/SECONDARY <AGE 12 Tonsillectomy FAMILY HISTORY Problem Relation Age of Onset Hypertension Mother Heart Mother Stroke Mother Allergies Mother Breast Cancer Mother Heart Father of [place] Allergies Father Asthma Daughter Allergies Sister Allergies [...] TESTOSTERONE TOTAL 3. Coronary artery disease involving [place] coronary artery of [place] heart without angina pectoris- ICD9: 414.01, ICD10: [...] one to two weeks - TSH BLD Chloe Cheema MD documented in this encounterCleveland Diwvcz10-01-7726 Miscellaneous Notes* Telephone Encounter - Beverley Cruz [...] you. Beverley Cruz LPN. documented in this encounterRegency Hospital [facility]02-07-2024 History of Past illness Narrative* Problem Noted [...] of this encounter (statuses as of 09/05/2023) [facility]02-07-2024 History of Past illness Narrative* Problem Noted [...] of this encounter (statuses as of 09/06/2023) [facility]02-07-2024 History of Past illness Narrative* Problem Noted [...] of this encounter (statuses as of 09/07/2023) [facility]01-31-2024 NoteHNO ID: [id number] Author: MISTY JACKSON APRN.INSIDE SALES ASSISTANT Service: Anesthesiology Author Type: Nurse Waitstaff Captain Type: Anesthesia Procedure Notes Filed: 07/19/2023 09:22 Note Text: ANESTHESIOLOGY PROCEDURE NOTE Airway General Information Procedure Start Time/Medication Administration: 07/19/2023 9:07 AM Patient location during procedure: OR Timeout Performed Pre-procedure: timeout performed Consent Obtained: Yes 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 INSIDE SALES ASSISTANT: Misty Jackson APRN.INSIDE SALES ASSISTANT Performed by: INSIDE SALES ASSISTANT Indications and Patient Condition Indications for airway [...] and doubled bath blanket SIGNATURE: Misty Jackson APRN.INSIDE SALES ASSISTANT PATIENT NAME: Jero Garzon DATE: July 19, 2023 TIME: 9:21 AM CSN: [id number] Telephone encounter Note* Telephone Encounter - Omaira Gallegos - 06/30/2023 11:00 AM EST 07/19/2023 UMBILICAL HERNIA REPAIR FORD [facility]01-12-2024 Miscellaneous Notes* Telephone Encounter - Omaira Gallegos - 06/30/2023 11:00 AM EST 07/19/2023 UMBILICAL HERNIA REPAIR FORD documented in this encounterRegency Hospital [facility]12-21-2023 Miscellaneous Notes* Telephone Encounter - Beevrley Cruz LPN - 06/08/2023 8:28 AM EST [...] you. Beverley Cruz LPN. documented in this encounterRegency Hospital [facility]12-04-2023 Discharge summary Author Vivian Mcintyre [facility] May 22, 2023 1:02pm Note Date/Time May 22, 2023 1 :02pm [facility] Physical Therapy Health[address] [place] [address] / REHABILITATION SERVICES DISCHARGE SUMMARY MR#: [id number] Acct: [id number] Name: JERO GARZON Rep #: [id number] : 1955 67 From: Vivian Mcintyre PT, Cert. MDT Referring Dr.: OUT OF TOWN DOCTOR Status: REG R Insurance: MEDICARE PART A B ANTHEM Discharge Summary D/C summary: It has been my pleasure to treat JERO GARZON referred by ARVIND TELLEZ, with the [...] please feel free to call me at [phone]. Thank you for the referral of thispatient. Sincerely, Vivian Mcintyre PT, Cert MDT Balance/Gait/Functional tests Balance/Special Test Scores Lower Extremity Functional Score: 76 <Electronically signed by Rodriguez Garcia PT. MDT> 05/22/23 1302 CC: Dr. Chloe Cheema MD; ARVIND TELLEZ ~ SIVAN Signed [facility] Work Phone: 1(475) 691-455110-16-2023 History of Present illness Narrative* Shannon Vázqeuz RT(R) - 04/03/2023 10:40 AM EDT Radiology Service Progress Note PATIENT NAME: Jero Garzon DATE OF SERVICE: April 03, 2023 [...] 03, 2023 10:58 AM documented in this encounterRegency Hospital [facility]08-07-2023 History of Present illness Narrative* Chloe Cheema MD - 01/23/2023 4:53 PM EDT [...] Right 1987 LAPS SURG CHOLECYSTECTOMY W/CHOLANGIOGRAPHY 2004 [facility] - Dr. Bales OPEN REPAIR OF ROTATOR CUFF ACUTE Rotator cuff repair PERCUTANEOUS CORONARY INTERVENTION 2006 stent to LAD TONSILLECTOMY PRIMARY/SECONDARY <AGE 12 Tonsillectomy FAMILY HISTORY Problem Relation Age of Onset Hypertension Mother Heart Mother Stroke Mother Allergies Mother Breast Cancer Mother Heart Father of [place] Allergies Father Asthma Daughter Allergies Sister Allergies [...] MG TABLET 6. Coronary artery disease involving [place] coronary artery of [place] heart without angina pectoris- ICD9: 414.01, ICD10: I25.10 - stable. Chloe Cheema MD documented in this encounterRegency Hospital [facility]07-18-2023 Miscellaneous Notes* Telephone Encounter - Vee Weinberg [facility] - 01/03/2023 2:36 PM EDT Behavioral Health Social Work Progress Note Patient identified for [facility] from: PCP Reason for referral: Resources Behavioral Health Resources: Psychology - talk therapy [facility] encounter type: Telephone Encounter Attempts to Outreach: 1 attempt Referral made: Psychology - Internal, Psychology - External Psychology-Internal referral type: Therapy Psychology-External referral type: Therapy Patient Discharged?: No Phone call placed today that went to [employer]. Left my contact information and brief nature of call. Initial outreach also completed via [employer] sending list of in network providers with insurance. AARON Zuñiga-S January 03, 2023 documented in this encounterRegency Hospital [facility]07-06-2023 Miscellaneous Notes* Telephone Encounter - Beverlye Cruz LPN - 12/22/2022 9:00 AM EDT [...] you. Beverley Cruz LPN documented in this encounterRegency Hospital [facility]07-03-2023 History of Present illness Narrative* Chloe Cheema MD - 12/19/2022 3:40 PM EDT [...] showed mild hypokalemia and leukocytosis. Went back [facility] on 12/15/22 with a 104 temp. [...] Right 1988 LAPS SURG CHOLECYSTECTOMY W/CHOLANGIOGRAPHY 2004 [facility] - Dr. Bales OPEN REPAIR OF ROTATOR CUFF ACUTE Rotator cuff repair PERCUTANEOUS CORONARY INTERVENTION 2006 stent to LAD TONSILLECTOMY PRIMARY/SECONDARY <AGE 12 Tonsillectomy FAMILY HISTORY Problem Relation Age of Onset Hypertension Mother Heart Mother Stroke Mother Allergies Mother Breast Cancer Mother Heart Father of [place] Allergies Father Asthma Daughter Allergies Sister Allergies [...] ICD10: D72.829 - CBC + DIFF Chloe Cheema MD documented in this encounterRegency Hospital [facility]06-30-2023 Discharge summary Author Nahum Dias [facility] December 16, 2022 1:25am Note Date/Time December 15, 2022 7:31 pm [facility] Medical Records Department [facility] [place] [address] Emergency Department Summary 12/15/22 MR#: [id number] Acct: [id number] Name: JERO GARZON Rep #:[id number] : 1955 67 From: Nahum Bagley PCP: Dr. Chloe Cheema MD Status:ADM I N Location: MS3 AA182-3 HPI History of Present Illness Chief Complaint: [...] his chest when he takes deep breaths. [facility] Medical History Abnormal myocardial perfusion study Abnormal stress test Acute pyelonephritis Atherosclerotic heart disease of [place] coronary artery without angina pectoris BPH (benign prostatic hyperplasia) Claudication Confusion Dyspnea on exertion Essential hypertension Fibromyalgia GERD (gastroesophageal reflux disease) H/O percutaneous transluminal coronary angioplasty History of shingles HTN (hypertension) Obesity DEENA (obstructive sleep apnea) Prostate enlargement Pulmonary embolism Pure hypercholesterolemia Rectal bleeding Testosterone deficiency TIA (transient ischemic attack) Unstable angina UTI (urinary tract infection) Home Medications multivitamin,qo-zwej-akzwrmfm 27 mg-0.4 mg tablet 1 tab PO [...] 90.2 H Lymph % (Auto) 4.4 L [place] % (Auto) 4.0 Eos % (Auto) 0.7 [...] 81 mg PO DAILY Qty: 90 0RF multivitamin,hl-pcxp-jqyrynlt 1 TABLET tablet 1 tab PO DAILY [...] DAILY Qty: 90 3RF Primary Care Provider: Chloe Cheema Referrals: Chloe Cheema MD [Primary Care Provider] - Disposition Disposition: Acute Care Hospital [facility] What to do if you have Problems For any increased pain, shortness of breath, bleeding, nausea or vomiting, chestpain, or any unexpected problems, contact your Primary Care Provider. Call [facility] ([phone]) or report to the closest Emergency Room. Call 911 if necessary. 12/16/22124 <Electronically signed by Nahum Dias DO> Cosigner Signature (if applicable): CC: Dr. Chloe Cheema MD ~ Signed [facility] Work Phone: 1(949) 450-949506-30-2023 Progress note Author [facility] December 16, 2022 12:19am Note Date/Time December 16, 2022 12:2 0am [facility] Medical Records Department [address] [place] [id number] Progress Note - Hospitalist 12/16/2218 MR#: [id number] Acct: [id number] Name: JERO GARZON Rep #:[id number] : 1955 67 From: Lucy Partida MD PCP: Dr. Chloe Cheema MD Status:ADM I N Location: [place] [address] Hospitalist Note Patient noted willingness to restart eliquis regimen. Reports to staff occasionally having intermittent palpitations. 12/16/2218 <Electronically signed by Lucy Partida MD> Cosigner Signature (if applicable): CC: ~ Signed [facility] Work Phone: 1(328) 388-562806-30-2023 History and physical note Author [facility] December 15, 2022 10:52pm Note Date/Time December 15, 2022 10:[address] [place] [address] Medical Records Department [address] [place] [address] H&P Exam - Hospitalist 12/15/220 MR#: [id number] Acct: [id number] Name: JERO GARZON Rep #:[id number] : 1955 67 From: Lucy Partida MD PCP: Dr. Chloe Cheema MD Status:ADM I N Location: [address] HPI - General General Date of Admission: 12/15/22 Date of Service: 12/15/22 Chief Complaint: Recent UTI Dx, ongoing fevers, chills. HPI Narrative The patient is a 67 y/o M w/ PMHx: Hx DVT/PE, PAF/Flutter, Chronic thrombocytopenia, DEENA on CPAP q HS, Former tobacco use, CAD s/p PCI, HTN, HLD, GERD, Fibromyalgia, BPH, Hx TIA, Obesity who presents to the [facility] ED on 12/15/22 with history of [...] IV x1, Zofran 4 mg IV x1. [facility] Abnormal myocardial perfusion study Abnormal stress test Acute pyelonephritis Atherosclerotic heart disease of [place] coronary artery without angina pectoris BPH (benign prostatic hyperplasia) Claudication Confusion Dyspnea on exertion Essential hypertension Fibromyalgia GERD (gastroesophageal reflux disease) H/O percutaneous transluminal coronary angioplasty History of shingles HTN (hypertension) Obesity DEENA (obstructive sleep apnea) Prostate enlargement Pulmonary embolism Pure hypercholesterolemia Rectal bleeding Testosterone deficiency TIA (transient ischemic attack) Unstable angina UTI (urinary tract infection) Home Medications multivitamin,fp-xlkt-zpcbmzyh 27 mg-0.4 mg tablet 1 tab PO [...] 90.2 H, Lymph % (Auto) 4.4 L, [place]af[place] % (Auto) 4.0, Eos % (Auto) 0.7, [...] Hx TIA, Obesity who presents to the [facility] ED on 12/15/22 with history of [...] 08/2012, most recent repeat catheterization 2018 demonstrating [place] multivessel coronary disease and a patent LAD [...] 75 minutes. Charges/Coding Visit Charges Inpatient E&M: 14018 Init Hosp L3 12/15/22 2252 <Electronically signed by Lucy Partida MD> Cosigner Signature (if applicable): CC: Dr. Lucy Partida MD; Dr. Chloe Cheema MD~ Signed [facility] Work Phone: 1(799) 833-849306-29-2023 Miscellaneous Notes* Telephone Encounter - Tamra Chau RN - 12/15/2022 6:34 PM EDT Patient's son calling to say his father was seen @ [facility] ER yesterday afternoon and diagnosed with prostatitis. He was prescribed antibiotics. This afternoon patient developed fever with shaking chills. Patient took Acetaminophen for fever at 1730 PM without effect. Temp is now increasing to 104 Disposition: ED now. Patient's son is agreeable and will transport his father to [facility]. Tamra Chau RN Reason for Disposition Fever > 103 F (39.4 C) Urine infection (MALE; cystitis, pyelonephritis, prostatitis, epididymitis, orchitis, urethritis) diagnosed recently Answer Assessment - Initial Assessment Questions 1. ANTIBIOTIC: Antibiotic prescribed 12/14 @ [facility] ER 2. DURATION: Started yesterday 3. MAIN SYMPTOM: shaking chills and fever 4. FEVER: fever started this afternoon and is increasing. T-104 one hour after taking Acetaminophen 5. OTHER SYMPTOMS: Do you have any other symptoms? (e.g., flank pain, penile discharge, scrotal pain, blood in urine) Protocols used: Recent Medical Visit for Illness Follow-up Qbfx-ARIYE-NP, Urinary Tract Infection on Antibiotic Follow-up Call - Srxy-DAFVW-ZY documented in this encounterRegency Hospital [facility]06-28-2023 History of Present illness Narrative* Chloe Cheema MD - 12/14/2022 4:21 PM EDT [...] Right 1988 LAPS SURG CHOLECYSTECTOMY W/CHOLANGIOGRAPHY 2004 [facility] - Dr. Bales OPEN REPAIR OF ROTATOR CUFF ACUTE Rotator cuff repair PERCUTANEOUS CORONARY INTERVENTION 2006 stent to LAD TONSILLECTOMY PRIMARY/SECONDARY <AGE 12 Tonsillectomy FAMILY HISTORY Problem Relation Age of Onset Hypertension Mother Heart Mother Stroke Mother Allergies Mother Breast Cancer Mother Heart Father of [place] Allergies Father Asthma Daughter Allergies Sister Allergies [...] Dehydration - ICD9: 276.51, ICD10: E86.0 Chloe Cheema MD documented in this encounterRegency Hospital [facility]05-09-2023 Miscellaneous Notes* Telephone Encounter - Allison Tavares RN - 10/25/2022 3:32 PM EDT Juliane from [facility] calls and is asking for provider [...] advise, Allison Tavares RN documented in this encounterRegency Hospital [facility]05-09-2023 History of Present illness Narrative* Chloe Cheema MD - 10/25/2022 2:29 PM EDT [...] decreased ambition. 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 Not sure he can afford counseling right now. No suicidal ideation. 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 Labs were all stable. Component Latest [...] Abs Lymph 1.00 - 4.00 k/uL 1.14 Chaffee% % 8.6 Abs Chaffee <0.87 k/uL 0.42 Eosin% % 1.6 Abs [...] Right 1988 LAPS SURG CHOLECYSTECTOMY W/CHOLANGIOGRAPHY 2004 [facility] - Dr. Bales OPEN REPAIR OF ROTATOR CUFF ACUTE Rotator cuff repair PERCUTANEOUS CORONARY INTERVENTION 2006 stent to LAD TONSILLECTOMY PRIMARY/SECONDARY <AGE 12 Tonsillectomy FAMILY HISTORY Problem Relation Age of Onset Hypertension Mother Heart Mother Stroke Mother Allergies Mother Breast Cancer Mother Heart Father of [place] Allergies Father Asthma Daughter Allergies Sister Allergies [...] - stable. 3. Coronary artery disease involving [place] coronary artery of [place] heart without angina pectoris- ICD9: 414.01, ICD10: I25.10 - call if any issues. 4. Atrial flutter, unspecified type (HCC) - ICD9: 427.32, ICD10: I48.92 - stable. 5. Adjustment disorder with anxious mood - ICD9: 309.24, ICD10: F43.22 - increase meds. Call if any issues. - SERTRALINE 50 MG TABLET Chloe Cheema RTO in two months and prn. documented in this encounterRegency Hospital [facility]04-07-2023 Miscellaneous Notes* Telephone Encounter - ZENAIDA Franco - 09/23/2022 1:14 PM EDT BEHAVIORAL HEALTH SOCIAL WORK CONSULT NOTE Service Date: September 23, 2022 Patient was identified by name and Patient: Jero Garzon [address] [facility] [address] [facility] [id number] (home) [phone] (cell) PCP: Chloe Cheema MD [address] [facility] [address] Patient identified for [facility] from: PCP Reason for referral: Resources Behavioral Health Resources: Psychology - talk therapy [facility] encounter type: Telephone Encounter Assessment: Referral made to engage patient experiencing an Adjustment Disorder and to provide therapy resources. [facility] reviewed patient's chart and insurance to identify resources. Patient stated they are experiencing stress. Patient denies suicidal or homicidal ideation. Patient identified he does not want toengage in therapy at this time. [facility] provided his contact information to patient [...] for recommendations Time Spent: 15 minutes ZENAIDA Franco-Johnny documented in this encounterRegency Hospital [facility]04-06-2023 History of Present illness Narrative* Chloe Cheema MD - 09/22/2022 4:14 PM EDT [...] down. No suicidal ideation. Not sleeping frequently. 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 Not current lung issues. [...] Right 1987 LAPS SURG CHOLECYSTECTOMY W/CHOLANGIOGRAPHY 2004 [facility] - Dr. Bales OPEN REPAIR OF ROTATOR CUFF ACUTE Rotator cuff repair PERCUTANEOUS CORONARY INTERVENTION 2006 stent to LAD TONSILLECTOMY PRIMARY/SECONDARY <AGE 12 Tonsillectomy FAMILY HISTORY Problem Relation Age of Onset Hypertension Mother Heart Mother Stroke Mother Allergies Mother Breast Cancer Mother Heart Father of [place] Allergies Father Asthma Daughter Allergies Sister Allergies [...] 25 HYDROXY 6. Coronary artery disease involving [place] coronary artery of [place] heart without angina pectoris- ICD9: 414.01, ICD10: [...] M89.9 - VITAMIN D 25 HYDROXY Chloe Cheema MD documented in this encounterRegency Hospital [facility]03-21-2023 Miscellaneous Notes* Telephone Encounter - Beverley Cruz LPN - 09/06/2022 12:12 PM EDT Please see ROKT message. * Telephone Encounter - Beverley Cruz [...] Medication has not been refilled since 08/13/2020, ROKT message sent for reason why. Please advise. Thank you. Beverley Cruz LPN documented in this encounterRegency Hospital [facility] West02-21-2023 Procedure [facility]02-21-2023 History and physical note Author Dr. Alfred [facility] August 09, 2022 11:07am Note Date/Time August 08, 2022 8:23am [facility] Medical Records Department [address] [place] [address] History & Physical Exam 08/08/22 0821 MR#: [id number] Acct: [id number] Name: JERO GARZON Rep #:[id number] : 1955 66 From: Willis Alfred MD PCP: Dr. Chloe Cheema MD Status:REG S DC Location: [facility] History and Physical Date of Admission: 08/09/22 [facility] [address] [facility] [place] [address] OFFICE VISIT Date of Service:? 08/03/22 MR#: [id number] Acct: [id number] Name:JERO GUTIERREZ Rep #: [id number] : 1955 ? Provider: ?SRAA Gooden Age/Sex:? 66/M [place] [facility]: Signed HPI HPI History of Present Illness Surgical H&P: Yes Details: JERO GARZON, is a 66 year old white [...] (%) 98 ? Intake Visit Reasons:?UPDATE H&P Shuttler Required: No Is patient in pain?: No Allergies Sulfa (Sulfonamide Antibiotics) Allergy (Verified 08/03/22 08:43) Unknown Medications multivitamin,ew-fkcb-alziwclz 27 mg-0.4 mg tablet 1 tab PO [...] History?(Reviewed 08/03/22 @ 08:44 by Aparna Gooden EPITAXIAL REACTOR OPERATOR, EPITAXIAL REACTOR OPERATOR-C) Abnormal myocardial perfusion study Abnormal stress test Acute pyelonephritis Atherosclerotic heart disease of [place] coronary artery without angina pectoris BPH (benign [...] History?(Reviewed 08/03/22 @ 08:44 by Aparna Gooden EPITAXIAL REACTOR OPERATOR, EPITAXIAL REACTOR OPERATOR-C) History of arthroscopy of right knee History [...] History?(Reviewed 08/03/22 @ 08:44 by Aparna Gooden EPITAXIAL REACTOR OPERATOR, EPITAXIAL REACTOR OPERATOR-C) Mother CAD (coronary artery disease) Hypertension Hx of CABGFather Hypertension Myocardial infarctionGrandfather Myocardial infarction ?? ? paternalGrandmother Cancer ?? ? pancreatic CAGrandfather CAD (coronary artery disease) Social History?(Reviewed 08/03/22 @ 08:44 by Aparna Gooden EPITAXIAL REACTOR OPERATOR, EPITAXIAL REACTOR OPERATOR-C) Smoking Status:? Former smoker quit date: 06/19/94 [...] function LVEF: by LV gram 60 % [place] Multivessel CAD (LAD: Proximal Stent: Patent) RECOMMENDATIONS [...] most recent cardiac catheterization from 2018 demonstrated [place] multivessel CAD, and a patent stent in [...] I25.1 0 - Atherosclerotic heart disease of [place] coronary artery without angina pectoris, I48.92 - [...] cardioversion on 08/09/2022 ? ? 3 Months (EPITAXIAL REACTOR OPERATOR/PA) COVID (Procedure Consent) Procedure Criteria Procedure Criteria: [...] 08/03/22 1656 <Electronically signed by Aparna Gooden NP EPITAXIAL REACTOR OPERATOR-C> Date Aparna Gooden NP EPITAXIAL REACTOR OPERATOR-C Cosigner Signature: Date (if applicable) CC:? Dr. Chloe Cheema MD ~ Assessment & Plan Addt'l [...] applicable): CC: Dr. Willis Alfred MD; Dr. Chloe Cheema MD~ Signed [facility] Work Phone: 1(354) 599-108901-04-2023 Miscellaneous Notes* Telephone Encounter - Fouzia Cope LPN - 06/22/2022 11:06 AM EST Patient phones requesting refills as follows: Requested Prescriptions Pending Prescriptions Disp Refills potassium chloride (K-TAB) 10 mEq tablet 180 tablet 1 Sig: Take 2 tablets by mouth once daily. CRUZITO-11/29/21 Labs-04/29/22 NOV-none med filled 11/16/21 Please review and advise. Fouzia Cope LPN documented in this [facility]09-24-2022 Miscellaneous Notes* Telephone Encounter - Grace Darden Ma - 03/12/2022 9:20 AM EDT Last office visit: 11/29/21 F/u scheduled: none Grace Darden Ma [facility] Miscellaneous Notes* Telephone Encounter - Grace Darden Ma - 02/22/2022 2:22 PM EDT Last office visit: 11/29/21 F/u scheduled: none Grace Darden Ma documented in this encounterReg[facility]-2022 Miscellaneous Notes* Telephone Encounter - Grace Darden Ma - 02/22/2022 1:56 PM EDT Last office visit: 11/29/21 F/u scheduled: none Grace Darden Ma documented in this encounterReg[facility]08-27-2022 History of Present illness Narrative* Carolann Lucas APRN.CENTER MEDICAL DIRECTOR - 02/12/2022 11:04 AM EDT Subjective The history is provided by the patient. No english language learner tutor was used. JOHNATHON Garzon is a 66 [...] polyps Pulmonary embolism (HCC) completed treatment per pul Recurrent pneumonia 14 times I have confirmed and edited as necessary, the [facility] Review of Systems Constitutional: Negative for [...] evaluation. Carolann Lucas APRN.ROSITA documented in this encounterReg[facility]06-21-2022 Miscellaneous Notes* Telephone Encounter - Sandy Velez LPN - 12/07/2021 10:20 AM EDT Pt called and states he had COVID then started with Shingles. He is taking medication for shingles and now he is having problems with his sinuses and starting to have problems with his ears. Pt instructed would need to be seen and evaluated. Pt states he is in [place] and [facility] Sandy Velez LPN documented in this encounterReg[facility]06-13-2022 Miscellaneous Notes* Telephone Encounter - Latisha Hassan RN - 11/29/2021 4:13 PM EDT Pt called and is notified of providers message and instructions. Pt voices understanding. Latisha Hassan RN * Telephone Encounter - Chloe Cheema MD - 11/29/2021 3:51 PM EDT Give me an update on how he is doing on Mon. rx sent in. * Telephone Encounter - Latisha Hassan RN - 11/29/2021 3:43 PM EDT [...] if provider would send medication to [facility] for him. Please call if/when sent. documented in this encounterReg[facility]06-13-2022 Miscellaneous Notes* Telephone Encounter - Asuncion Robertson LPN - 11/29/2021 2:52 PM EDT Patient returned call and went over results, notes from Dr Cheema with understanding. * Telephone Encounter - Fouzia Cope LPN - 11/29/2021 2:49 PM EDT TC to pt. LM to call office, ask for triage nurse to get results. Fouzia Cope LPN * Telephone Encounter - Chloe Cheema MD - 11/29/2021 2:44 PM EDT Let him know his blood clot blood test was ok. Call If any issues or worsening. documented in this encounterReg[facility]06-13-2022 History of Present illness Narrative* Shannon Vázquez RT(R) - 11/29/2021 1:00 PM EDT Radiology Service Progress Note PATIENT NAME: Jero Garzon DATE OF SERVICE: November 29, 2021 [...] 29, 2021 1:05 PM documented in this encounterRegency [facility]04-28-2022 History of Present illness Narrative* Lyssa Velez [...] history is provided by the patient. No english language learner tutor was used. Hypertension Review of Systems Constitutional: [...] Right 1988 LAPS SURG CHOLECYSTECTOMY W/CHOLANGIOGRAPHY 2004 [facility] - Dr. Bales OPEN REPAIR OF [...] Mother Breast Cancer Mother Heart Father of [place] Allergies Father Asthma Daughter Allergies Sister Allergies [...] plan. Kisha Wen APRN.ROSITA documented in this encounterReg[facility]03-25-2022 Instructions* Patient Instructions* Oliva Gutierrez PA-C - [...] 10 to 15 minutes. documented in this encounterRegency Hospital [facility]03-25-2022 History of Present illness Narrative* Oliva Gutierrez PA-C - 09/10/2021 4:38 PM EDT SERVICE DATE: September 10, 2021 PCP: Chloe Cheema MD Subjective Patient ID: Jero is a 65 year old male. Chief [...] Right 1988 LAPS SURG CHOLECYSTECTOMY W/CHOLANGIOGRAPHY 2004 [facility] - Dr. Bales OPEN REPAIR OF ROTATOR CUFF ACUTE Rotator cuff repair PERCUTANEOUS CORONARY INTERVENTION 2006 stent to LAD TONSILLECTOMY PRIMARY/SECONDARY <AGE 12 Tonsillectomy FAMILY HISTORY Problem Relation Age of Onset Hypertension Mother Heart Mother Stroke Mother Allergies Mother Breast Cancer Mother Heart Father of [place] Allergies Father Asthma Daughter Allergies Sister Allergies [...] results and radiologist's interpretation, available in the [facility] health record. Images were reviewed [...] Up. SIGNATURE: Oliva Gutierrez PA-C PATIENT NAME: Jero Garzon DATE: September 10, 2021 TIME: 4:38 PM Medical Decision Making: Problems: Low: Stable chronic illness Data: Unique source(s) for external note(s) reviewed: 1 Unique test result(s) reviewed: 1 Risk: Low: Low risk from testing/treatment Medical Decision Making Level: 3 - Low documented in this encounterReg[facility]03-25-2022 History of Present illness Narrative* Ema Tavares, RT(R) - 09/10/2021 4:15 PM EDT Radiology Service Progress Note PATIENT NAME: Jero Garzon DATE OF SERVICE: September 10, 2021 [...] 10, 2021 4:32 PM documented in this encounterReg[facility]03-20-2021 History of Present illness Narrative* Juana Rosa MD - 09/05/2020 11:45 AM EDT DATE OF SERVICE: 09/05/2020 SUBJECTIVE: Patient is here with a history of gout and right great toe pain beginning several days after he stopped taking his allopurinol. OBJECTIVE: Right great toe is tender. ASSESSMENT: Gout. PLAN: Prednisone 60 mg daily for up to 5 days. Resume other medications. Juana Rosa MD [id number] [facility] File#: [id number] END OF DOCUMENT / CHANGE LOG FOLLOWS Last Edited By Elec. Signed By Juana Rosa MD, Thomas MD #NAUTH on 09/14/2020 09:32 ET on 09/14/2020 09:32 ET Revision Number - 2 ^^^ Verified/Reviewed by 09/14/20931 [facility]EL[facility]IN [facility] PATIENT NAME: JERO GARZON [facility] REC #: [id number] [place], [place] [facility] STAT[facility] PHYSICIAN documented in this encounterReg[facility]11-10-2020 History of Present illness Narrative* Ashwin Hernandez (Rt), Kd - 04/28/2020 4:00 PM EST documented in this encounterReg[facility]10-01-2020 History of Present illness Narrative* Eyal Montoya [...] symptoms do not resolve. Eyal Montoya DO [id number] [facility] File#: [id number] END OF DOCUMENT / CHANGE LOG FOLLOWS Last Edited By Robert. Signed By Eyal Montoya Gary DO #CLAGA on 03/23/2020 08:06 ET on 03/23/2020 08:06 ET Revision Number - 2 ^^^ Verified/Reviewed by 03/23/20805 DARRIAN [facility] PATIENT NAME: EJRO GARZON [address] MEDICAL REC #: [id number] [place], [place] [facility]MIT [facility] STAT[facility]ARE PHYSICIAN documented in this encounterRegency [facility]04-25-2014 History of Past illness Narrative* Problem Noted Date Resolved Date Pulmonary embolism 10/11/2013 10/25/2022 Shortness of breath 02/08/2007 07/13/2018 Palpitations 09/30/2005 07/13/2018 documented as of this encounter (statuses as of 10/26/2022) [address]25-2014 History of Past illness Narrative* Problem Noted Date Resolved Date Pulmonary embolism 10/11/2013 10/25/2022 Shortness of breath 02/08/2007 07/13/2018 Palpitations 09/30/2005 07/13/2018 documented as of this encounter (statuses as of 10/26/2022) [address]25-2014 History of Past illness Narrative* Problem Noted Date Resolved Date Pulmonary embolism 10/11/2013 10/25/2022 Shortness of breath 02/08/2007 07/13/2018 Palpitations 09/30/2005 07/13/2018 documented as of this encounter (statuses as of 11/23/2022) [facility] History of Past illness Narrative* Problem Noted Date Resolved Date Pulmonary embolism 10/11/2013 10/25/2022 Shortness of breath 02/08/2007 07/13/2018 Palpitations 09/30/2005 07/13/2018 documented as of this encounter (statuses as of 12/15/2022) [facility] History of Past illness Narrative* Problem Noted Date Resolved Date Pulmonary embolism 10/11/2013 10/25/2022 Shortness of breath 02/08/2007 07/13/2018 Palpitations 09/30/2005 07/13/2018 documented as of this encounter (statuses as of 12/20/2022) [place] [address]25-2014 History of Past illness Narrative* Problem Noted Date Resolved Date Pulmonary embolism 10/11/2013 10/25/2022 Shortness of breath 02/08/2007 07/13/2018 Palpitations 09/30/2005 07/13/2018 documented as of this encounter (statuses as of 12/20/2022) [place] [address] History of Past illness Narrative* Problem Noted Date Resolved Date Pulmonary embolism 10/11/2013 10/25/2022 Shortness of breath 02/08/2007 07/13/2018 Palpitations 09/30/2005 07/13/2018 documented as of this encounter (statuses as of 12/22/2022) [place] [address] History of Past illness Narrative* Problem Noted Date Diagnosed Date Resolved Date Pulmonary embolism 10/11/2013 3 Shortness of breath 02/08/2007 07/13/19 19 Palpitations 09/30/2005 07/13/2018 documented as of this encounter (statuses as of 01/03/2023) [facility] of Past illness Narrative* Problem Noted Date Diagnosed Date Resolved Date Pulmonary embolism 10/11/2013 3 Shortness of breath 02/08/2007 07/13/19 19 Palpitations 09/30/2005 07/13/2018 documented as of this encounter (statuses as of 01/04/2023) [facility] History of Past illness Narrative* Problem Noted Date Diagnosed Date Resolved Date Pulmonary embolism 10/11/2013 3 Shortness of breath 02/08/2007 07/13/19 19 Palpitations 09/30/2005 07/13/2018 documented as of this encounter (statuses as of 01/24/2023) [facility] History of Past illness Narrative* Problem Noted Date Diagnosed Date Resolved Date Pulmonary embolism 10/11/2013 3 Shortness of breath 02/08/2007 07/13/19 19 Palpitations 09/30/2005 07/13/2018 documented as of this encounter (statuses as of 06/09/2023) [address]23-2007 History of Past illness Narrative* Problem Noted Date Resolved Date Shortness of breath 02/08/2007 07/13/2018 Palpitations 09/30/2005 07/13/2018 documented as of this encounter (statuses as of 09/10/2021) [address]23-2007 History of Past illness Narrative* Problem Noted Date Resolved Date Shortness of breath 02/08/2007 07/13/2018 Palpitations 09/30/2005 07/13/2018 documented as of this encounter (statuses as of 10/14/2021) [address]23[address]2007 History of Past illness Narrative* Problem Noted Date Resolved Date Shortness of breath 02/08/2007 07/13/2018 Palpitations 09/30/2005 07/13/2018 documented as of this encounter (statuses as of 11/16/2021) [place] [address] History of Past illness Narrative* Problem Noted Date Resolved Date Shortness of breath 02/08/2007 07/13/2018 Palpitations 09/30/2005 07/13/2018 documented as of this encounter (statuses as of 11/22/2021) [place] [address] History of Past illness Narrative* Problem Noted Date Resolved Date Shortness of breath 02/08/2007 07/13/2018 Palpitations 09/30/2005 07/13/2018 documented as of this encounter (statuses as of 11/23/2021) [address] History of Past illness Narrative* Problem Noted Date Resolved Date Shortness of breath 02/08/2007 07/13/2018 Palpitations 09/30/2005 07/13/2018 documented as of this encounter (statuses as of 11/29/2021) [address] History of Past illness Narrative* Problem Noted Date Resolved Date Shortness of breath 02/08/2007 07/13/2018 Palpitations 09/30/2005 07/13/2018 documented as of this encounter (statuses as of 11/29/2021) [address] History of Past illness Narrative* Problem Noted Date Resolved Date Shortness of breath 02/08/2007 07/13/2018 Palpitations 09/30/2005 07/13/2018 documented as of this encounter (statuses as of 12/14/2021) [place] [address] History of Past illness Narrative* Problem Noted Date Resolved Date Shortness of breath 02/08/2007 07/13/2018 Palpitations 09/30/2005 07/13/2018 documented as of this encounter (statuses as of 12/16/2021) [address] History of Past illness Narrative* Problem Noted Date Resolved Date Shortness of breath 02/08/2007 07/13/2018 Palpitations 09/30/2005 07/13/2018 documented as of this encounter (statuses as of 02/12/2022) [place] [address] History of Past illness Narrative* Problem Noted Date Resolved Date Shortness of breath 02/08/2007 07/13/2018 Palpitations 09/30/2005 07/13/2018 documented as of this encounter (statuses as of 02/22/2022) [place] [address] History of Past illness Narrative* Problem Noted Date Resolved Date Shortness of breath 02/08/2007 07/13/2018 Palpitations 09/30/2005 07/13/2018 documented as of this encounter (statuses as of 02/22/2022) [address]23[address]2007 History of Past illness Narrative* Problem Noted Date Resolved Date Shortness of breath 02/08/2007 07/13/2018 Palpitations 09/30/2005 07/13/2018 documented as of this encounter (statuses as of 03/12/2022) [address]23-2007 History of Past illness Narrative* Problem Noted Date Resolved Date Shortness of breath 02/08/2007 07/13/2018 Palpitations 09/30/2005 07/13/2018 documented as of this encounter (statuses as of 04/21/2022) [address]23[address]2007 History of Past illness Narrative* Problem Noted Date Resolved Date Shortness of breath 02/08/2007 07/13/2018 Palpitations 09/30/2005 07/13/2018 documented as of this encounter (statuses as of 06/24/2022) [address]23[address]2007 History of Past illness Narrative* Problem Noted Date Resolved Date Shortness of breath 02/08/2007 07/13/2018 Palpitations 09/30/2005 07/13/2018 documented as of this encounter (statuses as of 09/06/2022) [address]23[address]2007 History of Past illness Narrative* Problem Noted Date Resolved Date Shortness of breath 02/08/2007 07/13/2018 Palpitations 09/30/2005 07/13/2018 documented as of this encounter (statuses as of 09/23/2022) [address]23[address]2007 History of Past illness Narrative* Problem Noted Date Resolved Date Shortness of breath 02/08/2007 07/13/2018 Palpitations 09/30/2005 07/13/2018 documented as of this encounter (statuses as of 09/23/2022) [facility] Author Librado Bah [facility] December 16, 2022 11:12am Note Date/Time December 16, 2022 11:0 7am [facility] Medical Records Department [address] [place] [address] Instructions for Home/Discharge Instructions 12/16/22 1106 MR#: [id number] Acct: [id number] Name: JERO GARZON Rep #:[id number] : 1955 67 From: Librado Bah DO PCP: Dr. Chloe Cheema MD Status:ADM I N Discharge Instructions [...] Attending Provider: Librado Bah Primary Care Provider: Chloe Cheema Consulting Providers: Lucy Partida Instructions Additional [...] 81 mg PO DAILY Qty: 90 0RF multivitamin,wv-zhgk-xdhadszh 1 TABLET tablet 1 tab PO DAILY [...] PO DAILY Qty: 8 0RF Hold Instructions: Ordered atorvastatin 20 mg tablet 20 mg PO QHS Qty: 90 3RF losartan 25 mg tablet 25 mg PO DAILY Qty: 90 3RF amlodipine 5 mg tablet 5 mg PO DAILY Qty: 90 3RF Discontinued nitrofurantoin monohyd/m-cryst [Macrobid] 100 mg capsule 100 mg PO BID 7 Days Qty: 14 0RF Rx Instructions: must administer with a meal/food Referrals / Follow Up: Chloe Cheema MD [Primary Care Provider] - See Referral Note (At your next scheduled visit) Disposition Disposition (needs filled in before D/C Order can be placed): Home, Self Care 12/16/22 1112<Electronically signed by Librado Bah DO>Librado Bah DO CC: Dr. Lucy Partida MD; Dr. Chloe Cheema MD ~ Signed [facility] Work Phone: Discharge summary Author [facility] December 16, 2022 11:32am Note Date/Time December 16, 2022 11:3 2am [facility] Medical Records Department [address] [place] [id number] Discharge Summary 12/16/22 1126 MR#: [id number] Acct: [id number] Name: JERO GARZON Rep #:[id number] : 1955 67 From: Librado Bah DO PCP: Dr. Chloe Cheema MD Status:ADM I N Location: [place] [address] Providers Date of Admission: 12/15/22 Date of Discharge: 12/16/22 Primary Care Physician: Dr. Chole Cheema MD Reason For Visit: ACUTE COMPLICATED UTI, FAILED OUTPATIENT TREATMENT Diagnosis Discharge Diagnosis (1) Complicated urinary tract infection: Status: Acute Code(s): N39.0 - Urinary tract infection, site not specified Plan 1. Acute cystitis with E. coli-not ESBL E. coli #2 paroxysmal atrial fib/flutter #3 thrombocytopenia-etiology unclear #4 chronic obstructive pulmonary disease #5 hypokalemia #6 BPH Medications at Discharge Home Medications multivitamin,ux-eksk-duzgwjcm 27 mg-0.4 mg tablet 1 tab PO [...] was seen in the emergency room at [facility] with complaints of elevated temperature at home, [...] potassium of 3.3. Patient was admitted to [place] [address] for acute cystitis, ESBL organism was suspected [...] 90.2 H, Lymph % (Auto) 4.4 L, [place] % (Auto) 4.0, Eos % (Auto) 0.7, [...] 82.1 H, Lymph % (Auto) 5.9 L, [place] % (Auto) 11.1 H, Eos % (Auto) [...] Attending Provider: Librado Bah Primary Care Provider: Chloe Cheema Consulting Providers: Lucy Partida Instructions Additional [...] 81 mg PO DAILY Qty: 90 0RF multivitamin,ar-atre-fpbtazix 1 TABLET tablet 1 tab PO DAILY [...] with a meal/food Referrals / Follow Up: Chloe Cheema MD [Primary Care Provider] - See Referral Note (At your next scheduled visit) Disposition Disposition (needs filled in before D/C Order can be placed): Home, Self Care Charges/Coding Visit Charges Inpatient E&M: 80254 Disch Hosp 12/16/22 1132 <Electronically signed by Librado Bah DO> Cosigner Signature (if applicable): CC: Dr. Librado Bah DO; Dr. Chloe Cheema MD~ Signed [facility] Work Phone: Discharge summary Author Librado [facility] Note Date/Time February 01, 2025 1: 55pm [facility] Medical Records Department [address] [place] [address] Instructions for Home/Discharge Instructions 02/01/25 1348 MR#: [id number] Acct: [id number] Name: JERO GARZON Rep #:[id number] : 1955 69 From: Librado Bah DO PCP: Dr. Chloe Cheema MD Status:ADM I N Discharge Instructions DC O2, CPAP, BIPAP needs Home O2 Discharge instructions: No Dressing / Incision Discharge Activity: Return to Normal Activity May shower in (days): 2 Weight Bearing Status: Full weight bearing Additional Activity Instructions:: May shower or bathe on [day 3]. Do not scrub the incision or soak in the tub. Just wash with soap and let the water run over the incision. Gently pat dry with towel. Medications: Take your pain medication as directed. Refer to your discharge instruction sheet for a list of medications you are to take. Dressing / Incision Call your doctor if your incision/area has: Continuous Slow Oozing, Sudden Increased Bleeding, Increased Pain/ Swelling, Increased Redness, Foul Smelling Discharge and Swelling at the incision site Call your doctor if you observe: Fever of 101 or Higher, Shortness of breath, Dizziness, Fainting spells, Swelling in the ankles, Chest pain, Prolonged hiccupping and Increased palpitations (irregular heartbeat) Suture Line Care: Avoid Pulling/Pushing and Avoid Pinching/Bending Additional Dressing/Incision Instructions:: When dressing is removed, wash and dry incision. Keep covered with a light bandage if it is rubbing against your clothing. Do not cover the incision with an airtight bandage. Change the bandagedaily. Do not remove steri strips. The strips will fall off on their own. Follow Up Care Please Follow Up With: Sergo Perez MD Test Results: Test results from this visit will be discussed in further detail at your follow- up appointment, if applicable. Discharge Plan Admission Admit Date/Time: 01/31/25 14:42 Primary Reason for Your Visit: Third-degree AV block Attending Provider: Librado Bah Primary Care Provider: Chloe Cheema Consulting Providers: Edwin Ellington; Elle Lazcano; Renard Lopez; Roberto Muro; Flores Glover; Ashwin Pulido; Tato Rincon; Sergo Perez; Ashley Joel; Kimberley Snyder; Karl Vo; Denise Haywood; Adam Crow; Josep Ashford; Timoteo Alcantar; Hussein Gramajo NP; Dyana Alvarez; Willem Dsouza; Ashley Jacobs; Davy Lanier Discharge Orders/Prescriptions Prescriptions: Continued tamsulosin 0.4 mg capsule 0.4 mg PO DAILY testosterone 20.25 mg/1.25 gram (1.62 %) gel in metered-dose pump 4 pump transdermal DAILY Patient Comments: APPLY 4 PUMPS DAILY albuterol sulfate 1 INHALER inhaler 1 - 2 puff INHALATION Q6H PRN (Reason: Asthma) esomeprazole magnesium 40 mg capsule,delayed release(DR/EC) 40 mg PO BID Patient Comments: PT ONLY TAKES ONCE A DAY losartan 100 mg tablet 100 mg PO DAILY potassium chloride 10 mEq tablet extended release 20 meq PO DAILY finasteride 5 mg tablet 5 mg PO DAILY multivitamin [Daily Multi-Vitamin] Tablet 1 tab PO DAILY oxycodone-acetaminophen 5-325 mg tablet 1 tab PO DAILY PRN (Reason: pain) atomoxetine 40 mg capsule 100 mg PO DAILY ciprofloxacin HCl 500 mg tablet 500 mg PO BID amlodipine 5 mg tablet 10 mg PO DAILY Qty: 90 3RF Wegovy 0.25 mg/0.5 mL pen injector 0.25 mg subcut QWEEK Qty: 2 0RF Rx Instructions: administer weeks 1 through 4 of therapy Referrals / Follow Up: Sergo Perez MD [Med Staff - Active Staff] - See Referral Note (As scheduled) Chloe Cheema MD [Primary Care Provider] - Disposition Disposition (needs filled in before D/C Order can be placed): Home, Self Care 02/01/25 4499<Electronically signed by Librado Bah DO>Librado Bah DO CC: SARA Gramajo; Dr. Renard Lopez MD; Dr. Elle Lazcano MD; Dr. Edwin Ellington MD; Dr. Davy Lanier DO; Dr. Flores Glover MD; Dr. Roberto Muro MD; Dr. Ashwin Pulido MD; Dr. Tato Rincon MD; Dr. Sergo Perez MD; Dr. Ashley Joel DO; Dr. Ashley Jacobs DO; Dr. Kimberley Snyder MD; Dr. Karl Vo MD; Dr. Denise Haywood MD; Dr. Timoteo Alcantar MD; Dr. Adam Crow MD;Dr. Josep Ashford MD; Dr. 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 Essential hypertension chron ic Presence of stent in coronary artery 2012 chronic Pure hypercholesterolemia ch ronic Testosterone deficiency screwmaker automatic kellie [facility] Work Phone: Evaluation note* Diagnosis Hypokalemia Hypopotassemia [facility]* Diagnosis Onset Date Resolution Status Fatigue acute 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 Essential hypertension chron ic Presence of stent in coronary artery 2012 chronic Pure hypercholesterolemia ch ronic Testosterone deficiency screwmaker automatic kellie Fatigue acute 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 Essential hypertension chron ic Presence of stent in coronary artery 2012 chronic Pure hypercholesterolemia ronic Testosterone deficiency [facility]* Diagnosis Facial pain- Primary Headache Right ear pain Otalgia, unspecified Acute right eye pain Pain in or around eye [facility] Diagnosis GERD with esophagitis [facility] noteNo assessment information availableWSelect [facility] Work Phone: Evaluation note* Diagnosis Onset Date Resolution Status Atrial flutter acute Dyspnea acute 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 Essential hypertension chron ic Presence of stent in coronary artery 2012 chronic Pure hypercholesterolemia [facility] Work Phone: Evaluation note* Diagnosis Hypokalemia Hypopotassemia [facility]* Diagnosis Onset Date Resolution Status Atrial flutter acute Dyspnea acute 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 Essential hypertension chron ic Presence of stent in coronary artery 2012 chronic Pure hypercholesterolemia ch ronic Atrial flutter acute Dyspnea acute 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 Essential hypertension chron ic Presence of stent in coronary artery 2012 chronic Pure hypercholesterolemia [facility] Work Phone: Evaluation note* Diagnosis Onset Date Resolution Status Atrial flutter acute Dyspnea acute 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 Essential hypertension chron ic Presence of stent in coronary artery 2012 chronic Pure hypercholesterolemia ch ronic Atrial flutter acute Dyspnea acute 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 Essential hypertension chron ic Presence of stent in coronary artery 2012 chronic Pure hypercholesterolemia ch ronic Atrial flutter acute Dyspnea acute Essential hypertension chron ic Presence of stent in coronary artery 2012 chronic Pure hypercholesterolemia [facility] Work Phone: Evaluation note* Diagnosis Bacterial sinusitis- Primary Unspecified sinusitis (chronic) Adjustment disorder with anxious mood Adjustment disorder with anxiety Essential hypertension, benign Other pulmonary embolism without acute cor pulmonale, unspecified chronicity (HCC) Hyperlipidemia, unspecified hyperlipidemia type Coronary artery disease involving [place] coronary artery of [place] heart without angina pectoris Sleep apnea, unspecified type Uncomplicated asthma, unspecified asthma severity, unspecified whether persistent Atrial flutter, unspecified type (HCC) Myalgia Mylagia and myositis, unspecified Disorder of bone, unspecified [facility]* Diagnosis Essential hypertension, benign- Primary History of pulmonary embolism Personal history of pulmonary embolism Coronary artery disease involving [place] coronary artery of [place] heart without angina pectoris Atrial flutter, unspecified type (HCC) Adjustment disorder with anxious mood Adjustment disorder with anxiety [facility]* Diagnosis Adjustment disorder with anxious mood Adjustment disorder with anxiety [facility]* Diagnosis Urinary tract infection with hematuria, site unspecified- Primary Fever, unspecified fever cause Dehydration documented in this encounter [facility] note* Diagnosis Onset Date Resolution Status Atrial flutter acute Essential hypertension chron ic Presence of stent in coronary artery 2013 chronic Pure hypercholesterolemia ch ronic Complicated urinary tract infection acute Failure of outpatient treatment acute Thrombocytopenia acute [facility] Work Phone: Evaluation note* Diagnosis Urinary tract infection without hematuria, site unspecified- Primary Hypokalemia Hypopotassemia Leukocytosis, unspecified type [facility]* Diagnosis Hypokalemia Hypopotassemia documented in this encounter [facility] note* Diagnosis Anxiety with depression- Primary documented in this encounter [facility] note* Diagnosis Essential hypertension, benign- Primary Recurrent UTI (urinary tract infection) Urinary tract infection, site not specified Adjustment disorder with anxious mood Adjustment disorder with anxiety Fatigue, unspecified type Atrial flutter, unspecified type (HCC) Coronary artery disease involving [place] coronary artery of [place] heart without angina pectoris [facility]* Diagnosis Hypokalemia Hypopotassemia documented in [facility]* Diagnosis Onset Date Resolution Status Coronary artery disease screwmaker automatic kellie Dyslipidemia chronic Essential hypertension chron ic First degree heart block chr onic Morbid obesity with BMI of 40.0-44.9, adult chronic DEENA (obstructive sleep apnea) chronic Paroxysmal atrial flutter ch ronic Thrombocytopenia chronic Preoperative cardiovascular examination noneactive [facility] Work Phone: Evaluation note* Diagnosis GERD with esophagitis documented in this encounter [facility] note* Diagnosis Bacterial sinusitis- Primary Unspecified sinusitis (chronic) Testosterone deficiency Other testicular hypofunction Coronary artery disease involving [place] coronary artery of [place] heart without angina pectoris Atrial flutter, unspecified [...] constipation Unspecified constipation [facility] Diagnosis Hyperglycemia- Primary Other abnormal glucose [facility]* Diagnosis Onset Date Resolution Status Coronary artery disease screwmaker automatic kellie Dyslipidemia chronic Essential hypertension chron ic First degree heart block chr onic Morbid obesity with BMI of 40.0-44.9, adult chronic DEENA (obstructive sleep apnea) chronic Paroxysmal atrial flutter ch ronic Thrombocytopenia chronic Preoperative cardiovascular examination noneactive Pre-syncope acute Coronary artery disease screwmaker automatic kellie Dyslipidemia chronic Essential hypertension chron ic First degree heart block chr onic Morbid obesity with BMI of 40.0-44.9, adult chronic DEENA (obstructive sleep apnea) chronic Paroxysmal atrial flutter ch ronic Thrombocytopenia chronic [facility] Work Phone: Evaluation note* Diagnosis ADHD (attention deficit hyperactivity disorder), combined type- Primary Attention deficit disorder with hyperactivity [facility] Diagnosis ADHD (attention deficit hyperactivity disorder), combined type- Primary Attention deficit disorder with hyperactivity Need for vaccination Need for prophylactic vaccination and inoculation against unspecified single disease [facility]* Diagnosis Hypokalemia Hypopotassemia [facility]* Diagnosis Chest pain on breathing- Primary Painful respiration Sinobronchitis Unspecified sinusitis (chronic) Hypokalemia Hypopotassemia [facility]* Diagnosis Chronic cough- Primary Cough Chest pain on breathing Painful respiration [facility]* Diagnosis Bronchitis- Primary Bronchitis, not specified as acute or chronic Atrial flutter, unspecified type (HCC) Uncomplicated asthma, unspecified asthma severity, unspecified whether persistent Fatigue, unspecified type [facility]* Diagnosis COVID-19- Primary [facility]* Diagnosis Pain of left heel Pain in limb Pre-operative examination- Primary Preoperative examination, unspecified Adrenal nodule (HCC) Unspecified disorder of adrenal glands Uncomplicated asthma, unspecified asthma severity, unspecified whether persistent Atrial flutter, unspecified type (HCC) Coronary artery disease involving [place] coronary artery of [place] heart without angina pectoris Gastroesophageal reflux disease, [...] deficits Other polyneuropathy documented [facility]* Diagnosis Pre-operative examination- Primary Preoperative examination, unspecified Adrenal nodule (HCC) Unspecified disorder of adrenal glands Uncomplicated asthma, unspecified asthma severity, unspecified whether persistent Atrial flutter, unspecified type (HCC) Coronary artery disease involving [place] coronary artery of [place] heart without angina pectoris Gastroesophageal reflux disease, [...] deficits Other polyneuropathy Coronary artery disease involving [place] coronary artery of [place] heart without angina pectoris- Primary Hyperlipidemia, unspecified [...] quadrant abdominal pain documented [facility]* Diagnosis Pre-operative examination- Primary Preoperative examination, unspecified Adrenal nodule (HCC) Unspecified disorder of adrenal glands Uncomplicated asthma, unspecified asthma severity, unspecified whether persistent Atrial flutter, unspecified type (HCC) Coronary artery disease involving [place] coronary artery of [place] heart without angina pectoris Gastroesophageal reflux disease, [...] quadrant abdominal pain documented [facility]* Diagnosis Pre-operative examination- Primary Preoperative examination, unspecified Adrenal nodule (HCC) Unspecified disorder of adrenal glands Uncomplicated asthma, unspecified asthma severity, unspecified whether persistent Atrial flutter, unspecified type (HCC) Coronary artery disease involving [place] coronary artery of [place] heart without angina pectoris Gastroesophageal reflux disease, [...] Diarrhea, unspecified type documented in this encounter [facility] note* Diagnosis Pain Generalized pain Pre-operative examination- Primary Preoperative examination, unspecified Adrenal nodule (HCC) Unspecified disorder of adrenal glands Uncomplicated asthma, unspecified asthma severity, unspecified whether persistent Atrial flutter, unspecified type (HCC) Coronary artery disease involving [place] coronary artery of [place] heart without angina pectoris Gastroesophageal reflux disease, [...] deficits Other polyneuropathy documented [facility]* Diagnosis Other pulmonary embolism without acute cor pulmonale, unspecified chronicity (HCC) Chest pain, unspecified type Pre-operative examination- Primary Preoperative examination, unspecified Adrenal nodule (HCC) Unspecified disorder of adrenal glands Uncomplicated asthma, unspecified asthma severity, unspecified whether persistent Atrial flutter, unspecified type (HCC) Coronary artery disease involving [place] coronary artery of [place] heart without angina pectoris Gastroesophageal reflux disease, [...] deficits Other polyneuropathy documented in this encounter [facility] note* Diagnosis Pain of right heel Pain in limb Pre-operative examination- Primary Preoperative examination, unspecified Adrenal nodule (HCC) Unspecified disorder of adrenal glands Uncomplicated asthma, unspecified asthma severity, unspecified whether persistent Atrial flutter, unspecified type (HCC) Coronary artery disease involving [place] coronary artery of [place] heart without angina pectoris Gastroesophageal reflux disease, [...] deficits Other polyneuropathy documented in this encounter [facility] note* Diagnosis Pre-operative examination- Primary Preoperative examination, unspecified Adrenal nodule (HCC) Unspecified disorder of adrenal glands Uncomplicated asthma, unspecified asthma severity, unspecified whether persistent Atrial flutter, unspecified type (HCC) Coronary artery disease involving [place] coronary artery of [place] heart without angina pectoris Gastroesophageal reflux disease, [...] persistent [facility]* Diagnosis Pre-operative examination- Primary Preoperative examination, unspecified Adrenal nodule (HCC) Unspecified disorder of adrenal glands Uncomplicated asthma, unspecified asthma severity, unspecified whether persistent Atrial flutter, unspecified type (HCC) Coronary artery disease involving [place] coronary artery of [place] heart without angina pectoris Gastroesophageal reflux disease, [...] breath [facility]* Diagnosis Pre-operative examination- Primary Preoperative examination, unspecified Adrenal nodule (HCC) Unspecified disorder of adrenal glands Uncomplicated asthma, unspecified asthma severity, unspecified whether persistent Atrial flutter, unspecified type (HCC) Coronary artery disease involving [place] coronary artery of [place] heart without angina pectoris Gastroesophageal reflux disease, [...] breath [facility]* Diagnosis Pre-operative examination- Primary Preoperative examination, unspecified Adrenal nodule (HCC) Unspecified disorder of adrenal glands Uncomplicated asthma, unspecified asthma severity, unspecified whether persistent Atrial flutter, unspecified type (HCC) Coronary artery disease involving [place] coronary artery of [place] heart without angina pectoris Gastroesophageal reflux disease, [...] Other abnormal glucose [facility]* Diagnosis Pre-operative examination- Primary Preoperative examination, unspecified Adrenal nodule (HCC) Unspecified disorder of adrenal glands Uncomplicated asthma, unspecified asthma severity, unspecified whether persistent Atrial flutter, unspecified type (HCC) Coronary artery disease involving [place] coronary artery of [place] heart without angina pectoris Gastroesophageal reflux disease, [...] (chronic) [facility]* Diagnosis Pre-operative examination- Primary Preoperative examination, unspecified Adrenal nodule (HCC) Unspecified disorder of adrenal glands Uncomplicated asthma, unspecified asthma severity, unspecified whether persistent Atrial flutter, unspecified type (HCC) Coronary artery disease involving [place] coronary artery of [place] heart without angina pectoris Gastroesophageal reflux disease, [...] chronic [facility]* Diagnosis Pre-operative examination- Primary Preoperative examination, unspecified Adrenal nodule (HCC) Unspecified disorder of adrenal glands Uncomplicated asthma, unspecified asthma severity, unspecified whether persistent Atrial flutter, unspecified type (HCC) Coronary artery disease involving [place] coronary artery of [place] heart without angina pectoris Gastroesophageal reflux disease, [...] chronic [facility] Diagnosis Pre-operative examination- Primary Preoperative examination, unspecified Adrenal nodule (HCC) Unspecified disorder of adrenal glands Uncomplicated asthma, unspecified asthma severity, unspecified whether persistent Atrial flutter, unspecified type (HCC) Coronary artery disease involving [place] coronary artery of [place] heart without angina pectoris Gastroesophageal reflux disease, [...] breath [facility]* Diagnosis Pre-operative examination- Primary Preoperative examination, unspecified Adrenal nodule (HCC) Unspecified disorder of adrenal glands Uncomplicated asthma, unspecified asthma severity, unspecified whether persistent Atrial flutter, unspecified type (HCC) Coronary artery disease involving [place] coronary artery of [place] heart without angina pectoris Gastroesophageal reflux disease, [...] glucose Hypokalemia Hypopotassemia documented [facility]* Diagnosis Pre-operative examination- Primary Preoperative examination, unspecified Adrenal nodule (HCC) Unspecified disorder of adrenal glands Uncomplicated asthma, unspecified asthma severity, unspecified whether persistent Atrial flutter, unspecified type (HCC) Coronary artery disease involving [place] coronary artery of [place] heart without angina pectoris Gastroesophageal reflux disease, [...] Hypopotassemia documented [facility]* Diagnosis Pre-operative examination- Primary Preoperative examination, unspecified Adrenal nodule (HCC) Unspecified disorder of adrenal glands Uncomplicated asthma, unspecified asthma severity, unspecified whether persistent Atrial flutter, unspecified type (HCC) Coronary artery disease involving [place] coronary artery of [place] heart without angina pectoris Gastroesophageal reflux disease, [...] glucose Hypokalemia Hypopotassemia documented [facility]* Diagnosis Pre-operative examination- Primary Preoperative examination, unspecified Adrenal nodule (HCC) Unspecified disorder of adrenal glands Uncomplicated asthma, unspecified asthma severity, unspecified whether persistent Atrial flutter, unspecified type (HCC) Coronary artery disease involving [place] coronary artery of [place] heart without angina pectoris Gastroesophageal reflux disease, [...] unspecified [facility] Diagnosis Pre-operative examination- Primary Preoperative examination, unspecified Adrenal nodule (HCC) Unspecified disorder of adrenal glands Uncomplicated asthma, unspecified asthma severity, unspecified whether persistent Atrial flutter, unspecified type (HCC) Coronary artery disease involving [place] coronary artery of [place] heart without angina pectoris Gastroesophageal reflux disease, [...] benign [facility] Diagnosis Pre-operative examination- Primary Preoperative examination, unspecified Adrenal nodule (HCC) Unspecified disorder of adrenal glands Uncomplicated asthma, unspecified asthma severity, unspecified whether persistent Atrial flutter, unspecified type (HCC) Coronary artery disease involving [place] coronary artery of [place] heart without angina pectoris Gastroesophageal reflux disease, [...] deficits Other polyneuropathy Coronary artery disease involving [place] coronary artery of [place] heart without angina pectoris- Primary Hyperlipidemia, unspecified hyperlipidemia type Atrial flutter, unspecified type (HCC) Sleep apnea, unspecified type Gastric intestinal metaplasia History of pulmonary embolism Personal history of pulmonary embolism History of asthma Personal history of other diseases of respiratory system Fatigue, unspecified type [facility]* Diagnosis Pre-operative examination- Primary Preoperative examination, unspecified Adrenal nodule (HCC) Unspecified disorder of adrenal glands Uncomplicated asthma, unspecified asthma severity, unspecified whether persistent (HCC) Atrial flutter, unspecified type (HCC) Coronary artery disease involving [place] coronary artery of [place] heart without angina pectoris Gastroesophageal reflux disease, [...] Primary Thrombocytopenia, unspecified [facility] Diagnosis Pre-operative examination- Primary Preoperative examination, unspecified Adrenal nodule (HCC) Unspecified disorder of adrenal glands Uncomplicated asthma, unspecified asthma severity, unspecified whether persistent (HCC) Atrial flutter, unspecified type (HCC) Coronary artery disease involving [place] coronary artery of [place] heart without angina pectoris Gastroesophageal reflux disease, [...] benign [facility] Diagnosis Pre-operative examination- Primary Preoperative examination, unspecified Adrenal nodule (HCC) Unspecified disorder of adrenal glands Uncomplicated asthma, unspecified asthma severity, unspecified whether persistent (HCC) Atrial flutter, unspecified type (HCC) Coronary artery disease involving [place] coronary artery of [place] heart without angina pectoris Gastroesophageal reflux disease, [...] Anxiety with depression [facility] Diagnosis Pre-operative examination- Primary Preoperative examination, unspecified Adrenal nodule (HCC) Unspecified disorder of adrenal glands Uncomplicated asthma, unspecified asthma severity, unspecified whether persistent (HCC) Atrial flutter, unspecified type (HCC) Coronary artery disease involving [place] coronary artery of [place] heart without angina pectoris Gastroesophageal reflux disease, [...] esophagitis [facility]* Diagnosis Pre-operative examination- Primary Preoperative examination, unspecified Adrenal nodule (HCC) Unspecified disorder of adrenal glands Uncomplicated asthma, unspecified asthma severity, unspecified whether persistent (HCC) Atrial flutter, unspecified type (HCC) Coronary artery disease involving [place] coronary artery of [place] heart without angina pectoris Gastroesophageal reflux disease, [...] Thrombocytopenia Thrombocytopenia, unspecified [facility]* Diagnosis Pre-operative examination- Primary Preoperative examination, unspecified Adrenal nodule (HCC) Unspecified disorder of adrenal glands Uncomplicated asthma, unspecified asthma severity, unspecified whether persistent (HCC) Atrial flutter, unspecified type (HCC) Coronary artery disease involving [place] coronary artery of [place] heart without angina pectoris Gastroesophageal reflux disease, [...] breath Acute cough [facility] Diagnosis Pre-operative examination- Primary Preoperative examination, unspecified Adrenal nodule (HCC) Unspecified disorder of adrenal glands Uncomplicated asthma, unspecified asthma severity, unspecified whether persistent (HCC) Atrial flutter, unspecified type (HCC) Coronary artery disease involving [place] coronary artery of [place] heart without angina pectoris Gastroesophageal reflux disease, [...] apnea, unspecified type Coronary artery disease involving [place] coronary artery of [place] heart without angina pectoris Class 2 obesity with body mass index (BMI) of 38.0 to 38.9 in adult, unspecified obesity type, unspecified whether serious comorbidity present Attention deficit disorder, unspecified type [facility] Diagnosis Pre-operative examination- Primary Preoperative examination, unspecified Adrenal nodule (HCC) Unspecified disorder of adrenal glands Uncomplicated asthma, unspecified asthma severity, unspecified whether persistent (HCC) Atrial flutter, unspecified type (HCC) Coronary artery disease involving [place] coronary artery of [place] heart without angina pectoris Gastroesophageal reflux disease, [...] Hypopotassemia documented [facility] Diagnosis Pre-operative examination- Primary Preoperative examination, unspecified Adrenal nodule (HCC) Unspecified disorder of adrenal glands Uncomplicated asthma, unspecified asthma severity, unspecified whether persistent (HCC) Atrial flutter, unspecified type (HCC) Coronary artery disease involving [place] coronary artery of [place] heart without angina pectoris Gastroesophageal reflux disease, [...] rectum and anus documented [facility] Diagnosis Pre-operative examination- Primary Preoperative examination, unspecified Adrenal nodule (HCC) Unspecified disorder of adrenal glands Uncomplicated asthma, unspecified asthma severity, unspecified whether persistent (HCC) Atrial flutter, unspecified type (HCC) Coronary artery disease involving [place] coronary artery of [place] heart without angina pectoris Gastroesophageal reflux disease, [...] 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 residual deficits Other polyneuropathy Fatigue, unspecified type- Primary Third degree AV block (HCC) Atrioventricular block, complete SOB (shortness of breath) Shortness of breath Class 2 severe obesity due to excess calories with serious comorbidity and body mass index (BMI) of 39.0 to 39.9 in adult (HCC) Atrial flutter, unspecified type (HCC) Presence of stent in coronary artery Postsurgical percutaneous transluminal coronary angioplasty status History of pulmonary embolism Personal history of pulmonary embolism Chest discomfort Other chest pain Acute cough SOB (shortness of breath) Shortness of breath Chest discomfort Other chest pain documented in this encounter [facility] note* Diagnosis Pre-operative examination- Primary Preoperative examination, unspecified Adrenal nodule (HCC) Unspecified disorder of adrenal glands Uncomplicated asthma, unspecified asthma severity, unspecified whether persistent (HCC) Atrial flutter, unspecified type (HCC) Coronary artery disease involving [place] coronary artery of [place] heart without angina pectoris Gastroesophageal reflux disease, [...] 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 residual deficits Other polyneuropathy SOB (shortness of breath) Shortness of breath Chest discomfort Other chest pain [facility]* Diagnosis Pre-operative examination- Primary Preoperative examination, unspecified Adrenal nodule (HCC) Unspecified disorder of adrenal glands Uncomplicated asthma, unspecified asthma severity, unspecified whether persistent (HCC) Atrial flutter, unspecified type (HCC) Coronary artery disease involving [place] coronary artery of [place] heart without angina pectoris Gastroesophageal reflux disease, [...] 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 residual deficits Other polyneuropathy Vitamin D deficiency Unspecified vitamin D deficiency [facility] Author Lucy Partida [facility] December 15, 2022 10:52pm Note Date/Time December 15, 2022 10:[address] [place] [address] System Medical Records Department [address] [place] [id number] H&P Exam - Hospitalist 12/15/22 2210 MR#: [id number] Acct: [id number] Name: JERO GARZON Rep #:[id number] : 1955 67 From: Lucy Partida MD PCP: Dr. Chloe Cheema MD Status:ADM I N Location: [facility] [id number] HPI - General General Date of Admission: 12/15/22 Date of Service: 12/15/22 Chief Complaint: Recent UTI Dx, ongoing fevers, chills. HPI Narrative The patient is a 67 y/o M w/ PMHx: Hx DVT/PE, PAF/Flutter, Chronic thrombocytopenia, DEENA on CPAP q HS, Former tobacco use, CAD s/p PCI, HTN, HLD, GERD, Fibromyalgia, BPH, Hx TIA, Obesity who presents to the [facility] ED on 12/15/22 with history of [...] IV x1, Zofran [address] [facility] Medical History Abnormal myocardial perfusion study Abnormal stress test Acute pyelonephritis Atherosclerotic heart disease of [place] coronary artery without angina pectoris BPH (benign prostatic hyperplasia) Claudication Confusion Dyspnea on exertion Essential hypertension Fibromyalgia GERD (gastroesophageal reflux disease) H/O percutaneous transluminal coronary angioplasty History of shingles HTN (hypertension) Obesity DEENA (obstructive sleep apnea) Prostate enlargement Pulmonary embolism Pure hypercholesterolemia Rectal bleeding Testosterone deficiency TIA (transient ischemic attack) Unstable angina UTI (urinary tract infection) Home Medications multivitamin,ld-dwfk-xglribym 27 mg-0.4 mg tablet 1 tab PO [...] 90.2 H, Lymph % (Auto) 4.4 L, Chaffee % (Auto) 4.0, Eos % (Auto) 0.7, [...] Hx TIA, Obesity who presents to the [facility] ED on 12/15/22 with history of [...] 08/2012, most recent repeat catheterization 2017 demonstrating [place] multivessel coronary disease and a patent LAD [...] 75 minutes. Charges/Coding Visit Charges Inpatient E&M: 83935 Init Hosp L3 12/15/22 2985 <Electronically signed by Lucy Partida MD> Cosigner Signature (if applicable): CC: Dr. Lucy Partida MD; Dr. Chloe Cheema MD~ Signed [facility] Work Phone: History and physical note Author Kathleen Treviño [facility] Note Date/Time February 19, 2025 4:40pm [facility] Medical Records Department [address] [place] [address] H&P Exam - Hospitalist 02/19/25 1618 MR#: [id number] Acct: [id number] Name: JERO GARZON Rep #:[id number] : 1955 69 From: Kathleen Treviño MD PCP: Dr. Chloe Cheema MD Status:REG E R Location: ED HPI - General General Date of Admission: 02/19/25 Date of Service: 02/19/25 Chief Complaint: Episodes of racing heart and shortness of breath HPI Narrative JERO GARZON, is a 69-year-old male with history of coronary artery disease with stenting, , DEENA, ADHD, hypertension, GERD, BPH, low testosterone, complete heart block 2 weeks ago status post permanent pacemaker who presented to [facility] ED 02/19/2025 at the urging of the cardiology office due to runs of V. tach. In the ED temp 97.9, heart rate 75 and blood pressure 148/76, respiratory rate 17 and patient saturating 100% on room air. CBC with normal white count and hemoglobin, BMP only notable for glucose of 131, chest x-ray no acute process, mag 2.3, normal TSH and troponin of 23. Cardiology evaluated patient in the ED. Reportedly patient had a syncopal spell February 15 at a football game and was in V. tach that was sustained at 175 to 180 bpm whichlasted for 30 to 40 minutes. Was able to rest on the ground and after a while he is able to get back up and go to his truck. He was advised yesterday that patient come to the ED but he did not want to, he was called again today and ultimately presented to the ED. Cardiology recommended admission. Hospitalist contacted for admission. Patient evaluated with family member at bedside, he reports history as above, initially did endorse a blackout episode but later said he does not think he completely lost consciousness, does get episodes like this intermittently and would get these even before he had a pacemaker, notes yrnan tell when it is coming on and will be able to sit down and lay down until resolution, sometimes this lasts for minutes sometimes last for a long time likea 30 to 40 minutes on Monday. Often the episodes are brought on by exertion or stress. Notes in the past couple days he did have some pain between his shoulder blades but is not having any at present, notes that during these episodes as above he will also get short of breath and have a dry cough and nausea. Also feels very fatigued just in general. He will feel like he has a bubble in his chest and tingling in his hands. Presently having none of the symptoms. Does report he gets some constipation now that he is on Wegovy but denies any other new or acute complaints. [facility] Medical History Presence of cardiac pacemaker AV block, 3rd degree Obesity (BMI 30-39.9) Syncope Chest pain Pre-syncope Prostate infection History of cardioversion First degree heart block [...] disease) Essential hypertension Atherosclerotic heart disease of [place] coronary artery without angina pectoris Confusion Unstable [...] testosterone 4 pump transdermal DAILY low 11/23/21 01/30/25 History testosterone tamsulosin 0.4 mg capsule 0.4 mg PO DAILY prostate 05/1001/30/25 History amlodipine 5 mg tablet 10 mg (2 x 5 mg) PO DAILY ht n #90 04/08/24 01/30/25 Rx tabs esomeprazole magnesium 40 mg 40 mg PO BID reflux 10/2801/30/25 History capsule,delayed release finasteride 5 mg tablet 5 mg PO DAILY prostate 10/2801/30/25 History losartan 100 mg tablet 100 mg PO DAILY blood pressu re 10/28/24 01/30/25 History multivitamin (Daily Multi-Vitamin 1 tab PO DAILY vitam in 10/28/24 01/30/25 History tablet) oxycodone-acetaminophen 5 mg-325 1 tab PO DAILY PRN pa in 10/28/24 Unknown History mg tablet potassium chloride 10 mEq 20 meq PO DAILY supplement 0 10/28/24 01/30/25 History tablet,extended release atomoxetine 40 mg capsule 100 mg PO DAILY ADD 11/28/24 01/30/25 History semaglutide (weight loss) 0.25 0.25 mg (0.5 mL) subcut QWEEK 12/02/24 01/26/25 Rx mg/0.5 mL subcutaneous pen weight loss #2 mL injector (Groxis) ciprofloxacin HCl 500 mg tablet 500 mg PO BID infectio n 01/31/25 Unknown History Allergy/AdvReac Type Severity Reaction Status Date / Time Sulfa (Sulfonamide Allergy Unknown Verified 01/30/25 15:46 Antibiotics) Family History Mother CAD (coronary artery [...] you participate in: none ROS ROS Narrative General: Denies fever/chills HENT: Does get a headache during the episodes, denies stuffy nose, denies sore throat EYES: Denies changes in vision Resp: Short of breath and cough during the episodes, nonproductive cough Cardiac: Denies any chest pain but sometimes will get pain between his shoulder blades GI: Denies abdominal pain, struggled with some constipation, nausea during the episodes : Denies changes in urination Extremity: Denies swelling MSK: Feels somewhat generally weak and fatigued Neuro: Denies any numbness/tingling at present but during the episodes will get some tingling in his hands Heme: Denies any bleeding or bruising Skin: Denies rashes Psychiatric: No complaints voiced Vital Signs Vital Signs Vital Signs: 02/19/25 14:15 02/19/25 14:15 02/19/25 14:24 Temperature 97.9 F 97.9 F Temperature Source Oral Oral Pulse Rate 75 76 Respiratory Rate 13 17 Respiratory Effort Normal Non-Labored Respiratory Pattern Normal Blood Pressure 148/76 H 148/76 H Blood Pressure Mean 100 100 Pulse Ox 100 100 Oxygen Delivery Method Room Air Room Air 02/19/25 15:00 02/19/25 15:00 02/19/25 15:01 Temperature Temperature Source Pulse Rate 66 Respiratory Rate 14 Respiratory Effort Respiratory Pattern Blood Pressure 130/72 H 130/72 H Blood Pressure Mean 89 89 Pulse Ox 99 Oxygen Delivery Method 02/19/25 15:15 02/19/25 15:30 02/19/25 16:00 Temperature Temperature Source Pulse Rate 66 67 64 Respiratory Rate 13 13 17 Respiratory Effort Respiratory Pattern Blood Pressure 125/76 H 138/73 H 133/72 H Blood Pressure Mean 91 92 92 Pulse Ox 94 97 97 Oxygen Delivery Method Room Air 02/19/25 16:04 Temperature 98.0 F Temperature Source Pulse Rate 65 Respiratory Rate 15 Respiratory Effort Respiratory Pattern Blood Pressure 132/72 H Blood Pressure Mean 92 Pulse Ox 98 Oxygen Delivery Method Weight Weight: 145.9 kg Body Mass Index (BMI) 38.1 Physical Exam Narrative General: Alert, oriented, no apparent distress HEENT: Atraumatic, normocephalic Eyes: Anicteric, normal conjunctiva, extraocular movements grossly intact Neck: Supple Respiratory: Clear to auscultation bilaterally, normal respiratory effort Cardiovascular: Regular rate and rhythm GI: Soft, nontender, nondistended Extremities: No significant pitting edema Musculoskeletal: Moving all extremities Neuro: No overt focal neurological deficits Skin: No rashes appreciated Psych: Cooperative Results Lab / Micro Data 02/19/25 14:17 02/19/25 14:17 Labs: Laboratory Results - last 24 hr 02/19/25 14:17: WBC 6.1, RBC 5.25, Hgb 15.4, Hct 43.3, MCV 82.5, MCH 29.3, MCHC 35.6, RDW Std Deviation 38.6, RDW Coeff of Lito 12.8, Plt Count 168, MPV 11.1, Immature Gran % (Auto) 0.200, Neut % (Auto) 74.0 H, Lymph % (Auto) 14.8 L, Chaffee % (Auto) 9.6, Eos % (Auto) 1.2, Baso % (Auto) 0.2, Absolute Neuts (auto) 4.5, Absolute Lymphs (auto) 0.90, Nucleated RBC % 0, Sodium 138, Potassium 3.7, Chloride 103, Carbon Dioxide 23.2, Anion Gap 12, BUN 13, Creatinine 0.95, Estim Creat Clear Calc 119.34, Est GFR (MDRD) Non-Af 87, BUN/Creatinine Ratio 13.3, Glucose 131 H, Calcium 9.2, Magnesium 2.3 H, Troponin T High Sens 23 H D, TSH 1.110 Rhythm Strip Rhythm Strip: Pacer pacing V tracking sinus rate Rate: 66 Imaging Radiology Impression Chest X-Ray 02/19/25 14:38 IMPRESSION: No acute abnormality Reading Location: [facility] Assessment & Plan Assessment/Plan (1) V tach: PLAN: Plan # Episodes of ventricular tachycardia -With rates 170s to 180s with ?syncopal episode (initially sounded as though he passed out but later said he did not, was symptomatic though) -Cardiology evaluated in the ED and recommended admission on telemetry and that they will reach out to EP for further treatment recommendations -Magnesium not low, potassium 3.7, TSH within normal limits -Patient to be monitored on telemetry -Cardioogy c/s -Recent echo showed mildly dilated aortic root, EF of 60% with moderate concentric LVH and no significant valvular abnormalities - Heart cath 01/31/2025 revealed the previously stented LAD was widely patent there was a jailed diagonal vessel with an ostial 70 to 80% stenosis. The circumflex was nondominant with 50% moderate stenosis and mild diffuse distal disease the right coronary was dominant with a moderate 60% stenosis and mild diffuse distal disease which was treated medically - Hold Wegovy as recommended by cardiology #Hx of CAD -w/ previous stenting -Continue home medications -Recent heart cath as above #DEENA -Continue home NIPPV - Patient reports compliance #Hypertension - Continue home medications #GERD -Continue PPI #Chronic BPH with obstruction -Continue home medications # History of ADHD -Will temporarily hold home atomoxetine given concerns for arrhythmia, may need to consider alternate agents on an outpatient basis given the presenting complaint #DVT ppx: SCDs Kathleen Treviño MD Charges/Coding Visit Charges Inpatient E&M: 96919 Init Hosp L2 02/19/25 1640 <Electronically signed by Kathleen Treviño MD> Cosigner Signature (if applicable): CC: Dr. Kathleen Treviño MD; Dr. Chloe Cheema MD~ Signed [facility] Work Phone: Hospital Discharge instructionsAmbulatory Orders* Nutrition Referral Location: None Selected [facility] Work Phone: Reason for referral (narrative)* Diagnostic Procedure Only (Urgent) - Closed Specialty Diagnoses / Procedures Referred By Contac t Referred To Contact XR IMAGING Diagnoses Pain of left heel Procedures XR FOOT GENERAL 3V AP/LAT/OBL LEFT RADEX FOOT COMPLETE MINIMUM 3 VIEWS Anabelle Tom, COMFORT.CENTER MEDICAL DIRECTOR [address] [place] [address] [place] [address] Referral ID Status Reason Start Date Expiration Date V isits Requested Visits Authorized [id number] Closed Auto-Generated Referral Patient Cleared - INN Insurance Found 04/03/2023 05/02/[address] [facility] for referral (narrative)* Diagnostic Procedure Only (Routine) - Closed Specialty Diagnoses / Procedures Referred By Contac t Referred To Contact XR IMAGING Diagnoses Pain Procedures XR FOOT GENERAL 3V AP/LAT/OBL RIGHT RADEX FOOT COMPLETE MINIMUM 3 VIEWS Oliva Gutierrez PA-C [address] [place] [address] [place] [address] Referral ID Status Reason Start Date Expiration Date V isits Requested Visits Authorized [id number] Closed Auto-Generate d Referral 09/08/2021 10/08/2022 1 1 * Diagnostic Procedure Only (Routine) - Closed Specialty Diagnoses / Procedures Referred By Contac t Referred To Contact XR IMAGING Diagnoses Pain Procedures XR ANKLE GENERAL 3V AP/LAT/OBL RIGHT RADEX ANKLE COMPLETE MINIMUM 3 VIEWS Oliva Gutierrez PA-C [address] [place] [id number] Xr Imaging [facility] Referral ID Status Reason Start Date Expiration Date V isits Requested Visits Authorized [id number] Closed Auto-Generate d Referral 09/08/2021 10/08/2022 1 1 [facility] ([facility]ative)No reason for referral information availableWSelect [facility] Work Phone: Reason for visit Narrative* Diagnostic Procedure Only (Urgent) - Closed Specialty Diagnoses / Procedures Referred By Contac t Referred To Contact XR IMAGING Diagnoses Pain of left heel Procedures XR FOOT GENERAL 3V AP/LAT/OBL LEFT RADEX FOOT COMPLETE MINIMUM 3 VIEWS Anabelle Tom, AIRPLANE FLIGHT ATTENDANT.CENTER MEDICAL DIRECTOR [address] [place] [address] [place] [address] Referral ID Status Reason Start Date Expiration Date V isits Requested Visits Authorized [id number] Closed Auto-Generated Referral Patient Cleared - INN Insurance Found 04/03/2023 05/02/2024 1 1 [facility] Summary Purpose Family History Relationship Condition Age at Onset Recorded Date/T shukri mother Coronary artery disease Unknown Hypertension Unknown History of coronary artery bypass surgery Unknown father Hypertension Unknown Myocardial infarction Unknown grandfather Myocardial infarction Unknown grandmother Malignant neoplasm Unknown grandfather Coronary artery disease Unknown Advance Directives Documents on File Type Date Recorded 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 Advance Directive(s) 07/20/2016 7:44 AM Advance Directive(s) 05/10/2016 5:01 PM Advance Directive(s) 06/05/2012 1:03 PM Advance Directive Response Recorded Date/ Time Advance Directives No April 5:24pm Living Will Yes February 29, 2020 1:43am Power of Camera Technician Yes February 1:43am Documents on File Type Date Recorded 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 Advance Directive(s) 06/05/2012 1:03 PM Advance Directive Response Recorded Date/ Time Name of Medical Power of Camera Technician JACQUES MENDEZ R, February 12, 2022 11:34am Advance Directives No April 5:24pm Living Will Yes February 12 11:34am Power of Camera Technician Yes February 12 11:34am Advance Directive Response Recorded Date/ Time Name of Medical Power of Camera Technician JACQUES MENDEZ R, February 12, 2022 10:34am Advance Directives No April 4:24pm Living Will Yes February 12 10:34am Power of Camera Technician Yes February 12 10:34am Advance Directive Response Recorded Date/ Time Name of Medical Power of Camera Technician JACQUES MENDEZ R, February 12, 2022 10:34am Name of Medical Power of Camera Technician Karin Pereyratcher May 07, 2022 11:33am Advance Directives No April 4:24pm Living Will Yes May 07 11:33am Power of Camera Technician Yes May 07, 2022 11:33am Advance Directive Response Recorded Date/ Time Name of Medical Power of Camera Technician Karin Garzon May 07, 2022 11:33am Advance Directives No April 4:24pm Living Will Yes May 07 11:33am Power of Camera Technician Yes May 07, 2022 11:33am Advance Directive Response Recorded Date/ Time Advance Directives No April 5:24pm Living Will No December 15, 2022 7:07pm Power of Camera Technician No December 15 7:07pm Advance Directive Response Recorded Date/ Time Advance Directives No April 5:24pm Living Will No December 15, 2022 11:33pm Power of Camera Technician No December 15 11:33pm Advance Directive Response Recorded Date/ Time Advance Directives No April 4:24pm Living Will No December 15, 2022 10:33pm Power of Camera Technician No December 15 10:33pm Documents on File Type Date Recorded 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 No December 15, 2022 11:33pm Do you have a Healthcare Power of Camera Technician? Yes October 28, 2024 10:55am Advance Directives No January 14 10:22am Advance Directive Response Recorded Date/ Time Living Will No December 15, 2022 11:33pm Do you have a Healthcare Power of Camera Technician? No December 15, 2022 11:33pm Do you have a Healthcare Power of Camera Technician? Yes October 28, 2024 10:55am Do you have a Healthcare Power of Camera Technician? Yes November 20, 2024 10:51am Name of Medical Power of Camera Technician Lucila Dey November 20, 2024 10:51am Advance Directives No January 14 10:22am Advance Directive Response Recorded Date/ Time Do you have a Healthcare Power of Camera Technician? Yes October 28, 2024 10:55am Do you have a Healthcare Power of Camera Technician? Yes November 20, 2024 10:51am Name of Medical Power of Camera Technician Lucila Moncada November 20, 2024 10:51am Do you have a Healthcare Power of Camera Technician? Yes January 30, 2025 4:32pm Advance Directives No January 14 10:22am Advance Directive Response Recorded Date/ Time Do you have a Healthcare Power of Camera Technician? Yes October 28, 2024 10:55am Do you have a Healthcare Power of Camera Technician? Yes November 20, 2024 10:51am Name of Medical Power of Camera Technician Lucila Moncadaus November 20, 2024 10:51am Do you have a Healthcare Power of Camera Technician? Yes January 30, 2025 11:38pm Advance Directives No January 14 10:22am Advance Directive Response Recorded Date/ Time Do you have a Healthcare Power of Camera Technician? Yes October 28, 2024 10:55am Do you have a Healthcare Power of Camera Technician? Yes February 19, 2025 2:23pm Do you have a Healthcare Power of Camera Technician? Yes November 20, 2024 10:51am Name of Medical Power of Camera Technician Lucila Dey November 20, 2024 10:51am Do you have a Healthcare Power of Camera Technician? Yes January 30, 2025 11:38pm Advance Directives No January 14 10:22am Chief Complaint and Reason for Visit Chief Complaint Admit Date 6 M FU August 16, 2024 10:25am GI Bleed October 28, 2024 9:35a m sob November 20, 2024 10:25 am Reason for Visit Admit Date 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 pectoris August 16, 2024 10:25am Atrial flutter August 16, 2024 10:25am Essential hypertension August 16 10:25am Pure hypercholesterolemia August 16, 2024 10:25am Chief Complaint Cervical spine 6 M FU Reason for Visit Fatigue Atherosclerotic heart disease of [place] coronary artery without angina pectoris Essential hypertension Presence of stent in coronary artery Pure hypercholesterolemia Testosterone deficiency Chief Complaint Cervical spine 6 M FU 6 wk FU Reason for Visit Fatigue Atherosclerotic heart disease of [place] coronary artery without angina pectoris Essential hypertension Presence of stent in coronary artery Pure hypercholesterolemia Testosterone deficiency Fatigue Atherosclerotic heart disease of [place] coronary artery without angina pectoris Essential hypertension Presence of stent in coronary artery Pure hypercholesterolemia Testosterone deficiency Chief Complaint 6 M FU 6 wk FU HEAD Reason for Visit Fatigue Atherosclerotic heart disease of [place] coronary artery without angina pectoris Essential hypertension Presence of stent in coronary artery Pure hypercholesterolemia Testosterone deficiency Fatigue Atherosclerotic heart disease of [place] coronary artery without angina pectoris Essential hypertension Presence of stent in coronary artery Pure hypercholesterolemia Testosterone deficiency Chief Complaint HEAD TWO ORDERING LAURENT/INT LABS AND ORDER PSA Chief Complaint HEAD TWO ORDERING LAURENT/JAMILAH LABS AND ORDER PSA 6 M FU Reason for Visit Atrial flutter Dyspnea Atherosclerotic heart disease of [place] coronary artery without angina pectoris Essential hypertension Presence of stent in coronary artery Pure hypercholesterolemia Chief Complaint HEAD TWO ORDERING LAURENT/JAMILAH LABS AND ORDER PSA 6 M FU Chest pain Reason for Visit Atrial flutter Dyspnea Atherosclerotic heart disease of [place] coronary artery without angina pectoris Essential hypertension Presence of stent in coronary artery Pure hypercholesterolemia Chief Complaint HEAD TWO ORDERING MADALYN LABS AND ORDER PSA 6 M FU Chest pain DYSPNEA AFIB; CAD Reason for Visit Atrial flutter Dyspnea Atherosclerotic heart disease of [place] coronary artery without angina pectoris Essential hypertension Presence of stent in coronary artery Pure hypercholesterolemia Chief Complaint TWO ORDERING SUNDEEP [place] LABS AND ORDER PSA 6 M FU Chest pain DYSPNEA AFIB; CAD 1 M FU E ORDER Reason for Visit Atrial flutter Dyspnea Atherosclerotic heart disease of [place] coronary artery without angina pectoris Essential hypertension Presence of stent in coronary artery Pure hypercholesterolemia Atrial flutter Dyspnea Atherosclerotic heart disease of [place] coronary artery without angina pectoris Essential hypertension Presence of stent in coronary artery Pure hypercholesterolemia Chief Complaint TWO ORDERING SUNDEEP [place] LABS AND ORDER PSA 6 M FU Chest pain DYSPNEA AFIB; CAD 1 M FU E ORDER UPDATE H&P Atrial fibrillation AFIB Atrial fibrillation Atrial fibrillation Reason for Visit Atrial flutter Dyspnea Atherosclerotic heart disease of [place] coronary artery without angina pectoris Essential hypertension Presence of stent in coronary artery Pure hypercholesterolemia Atrial flutter Dyspnea Atherosclerotic heart disease of [place] coronary artery without angina pectoris Essential hypertension [...] Admit Date 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 pectoris August 16, 2024 10:25am Atrial flutter August 16, 2024 10:25am Essential hypertension August 16 10:25am Pure hypercholesterolemia August 16, 2024 10:25am 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 pectoris November 28, 2024 9:57am Atrial flutter November 28, 2024 9:57 am Essential hypertension November 28, 2024 9 :57am Obesity November 28, 2024 9:57 am DEENA (obstructive sleep apnea) November 28, 2024 9:57am Pure hypercholesterolemia November 28 9:57am Chief Complaint Admit Date GI Bleed October 28, 2024 9:35a m sob November 20, 2024 10:25 am CP WITH CAD SEEN IN ER November 21, 2024 6: 26am CP WITH CAD SEEN IN ER November 21, 2024 2: 14pm PER MH--SEE NOTES November 28, 2024 9:57 am CHEST PAIN AND SYNCOPE/PRESYNCOPE January 30, 2025 11:03pm Reason for Visit Admit Date 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 pectoris November 28, 2024 9:57am Atrial flutter November 28, 2024 9:57 am Essential hypertension November 28, 2024 9 :57am Obesity November 28, 2024 9:57 am DEENA (obstructive sleep apnea) November 28, 2024 9:57am Pure hypercholesterolemia November 28 9:57am Chest pain January 30, 2025 11 :03pm Pre-syncope January 30, 2025 11 :03pm Syncope January 30, 2025 11 :03pm Chief Complaint Admit Date GI Bleed October 28, 2024 9:35a m sob November 20, 2024 10:25 am CP WITH CAD SEEN IN ER November 21, 2024 6: 26am CP WITH CAD SEEN IN ER November 21, 2024 2: 14pm PER MH--SEE NOTES November 28, 2024 9:57 am CHEST PAIN AND SYNCOPE/PRESYNCOPE January 31, 2025 8:07am CHEST PAIN AND SYNCOPE/PRESYNCOPE January 31, 2025 2:42pm Reason for Visit Admit Date 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 pectoris November 28, 2024 9:57am Atrial flutter November 28, 2024 9:57 am Essential hypertension November 28, 2024 9 :57am Obesity November 28, 2024 9:57 am DEENA (obstructive sleep apnea) November 28, 2024 9:57am Pure hypercholesterolemia November 28 9:57am AV block, 3rd degree January 31, 2025 2 :42pm Chest pain January 31, 2025 2: 42pm Fatigue January 31, 2025 2: 42pm Obesity (BMI 30-39.9) January 31, 2025 2:42pm Pre-syncope January 31, 2025 2: 42pm Syncope January 31, 2025 2: 42pm 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 pectoris January 31, 2025 2:42pm Coronary artery disease January 31 2:42pm Paroxysmal atrial flutter January 31, 2 025 2:42pm Chief Complaint Admit Date GI Bleed October 28, 2024 9:35a m sob November 20, 2024 10:25 am CP WITH CAD SEEN IN ER November 21, 2024 6: 26am CP WITH CAD SEEN IN ER November 21, 2024 2: 14pm PER MH--SEE NOTES November 28, 2024 9:57 am CHEST PAIN AND SYNCOPE/PRESYNCOPE January 31, 2025 8:07am CHEST PAIN AND SYNCOPE/PRESYNCOPE January 31, 2025 2:42pm CHEST PAIN AND SYNCOPE/PRESYNCOPE February 01, 2025 1:55pm 10 DAY WOUND CHECK February 12, 2025 10 :41am Reason for Visit Admit Date Atrial flutter November 28, 2024 9:57 am Essential hypertension November 28, 2024 9 :57am Obesity November 28, 2024 9:57 am DEENA (obstructive sleep apnea) November 28, 2024 9:57am Pure hypercholesterolemia November 28 9:57am 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 pectoris November 28, 2024 9:57am AV block, 3rd degree January 31, 2025 2 :42pm 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 pectoris January 31, 2025 2:42pm Chest pain January 31, 2025 2: 42pm Coronary artery disease January 31 2:42pm Fatigue January 31, 2025 2: 42pm Obesity (BMI 30-39.9) January 31, 2025 2:42pm Paroxysmal atrial flutter January 31, 2 025 2:42pm Pre-syncope January 31, 2025 2: 42pm Syncope January 31, 2025 2: 42pm AV block, 3rd degree February 12, 2025 1 0:41am Presence of cardiac pacemaker January 10:41am Chief Complaint Admit Date GI Bleed October 28, 2024 9:35a m sob November 20, 2024 10:25 am CP WITH CAD SEEN IN ER November 21, 2024 6: 26am CP WITH CAD SEEN IN ER November 21, 2024 2: 14pm PER MH--SEE NOTES November 28, 2024 9:57 am CHEST PAIN AND SYNCOPE/PRESYNCOPE January 31, 2025 8:07am CHEST PAIN AND SYNCOPE/PRESYNCOPE January 31, 2025 2:42pm EVALUATE FOR STENOSIS January 31, 2025 2:50pm CHEST PAIN AND SYNCOPE/PRESYNCOPE February 01, 2025 1:55pm 10 DAY WOUND CHECK February 12, 2025 10 :41am runs of v-tach February 19, 2025 3:42pm RUNS OF SYMPTOMATIC V. TACH February 4:18pm Reason for Visit Admit Date Atrial flutter November 28, 2024 9:57 am Essential hypertension November 28, 2024 9 :57am Obesity November 28, 2024 9:57 am DEENA (obstructive sleep apnea) November 28, 2024 9:57am Pure hypercholesterolemia November 28 9:57am 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 pectoris November 28, 2024 9:57am AV block, 3rd degree January 31, 2025 2 :42pm 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 pectoris January 31, 2025 2:42pm Chest pain January 31, 2025 2: 42pm Coronary artery disease January 31 2:42pm Fatigue January 31, 2025 2: 42pm Obesity (BMI 30-39.9) January 31, 2025 2:42pm Paroxysmal atrial flutter January 31, 2:42pm Pre-syncope January 31, 2025 2: 42pm Syncope January 31, 2025 2: 42pm AV block, 3rd degree February 12, 2025 1 0:41am Presence of cardiac pacemaker January 10:41am Fatigue February 19, 2025 4:18pm V tach February 19, 2025 4:18pm Essential hypertension February 19 4:18pm Presence of cardiac pacemaker February 19, 2025 4:18pm Health Concerns Infection Onset Date Last Indicated [...] IVCON CT ANGIOGRAPHY CHEST W/CONTRAST/NONCONTRAST Susan Kerr, AIRPLANE FLIGHT ATTENDANT.CENTER MEDICAL DIRECTOR [address] [facility] [place] [address] [place] [address] Referral ID Status Reason Start Date Expiration Date Visits Requested Visits Authorized [id number] Pending Review Auto-Generat ed Referral 12/13/2023 01/11/2025 1 1 Specialty Diagnoses / Procedures Referred By Contac t Referred To Contact CT IMAGING Diagnoses Chest pain on breathing Procedures CT CHEST W IVCON PE DIAGNOSTIC COMPUTED TOMOGRAPHY THORAX W/CONTRAST Susan Kerr APRN.CENTER MEDICAL DIRECTOR [address] [place] [address] Ct Imaging [facility] Referral ID Status Reason Start Date Expiration Date Visits Requested Visits Authorized [id number] Authorized Financial Clearance Not Required 12/13/2023 01/11/2025 1 1 Specialty Diagnoses / Procedures Referred By Contac t Referred To Contact CT IMAGING Diagnoses Left lower quadrant abdominal pain Procedures CT ABD/PEL W IVCON CT ABD & PELVIS W/CONTRAST Chloe Cheema MD [address] [place] [address] Ct Imaging [facility] Referral ID Status Reason Start Date Expiration Date V isits Requested Visits Authorized [id number] Closed Financial Clearance Not Required 03/08/2024 04/07/2025 2 2 Specialty Diagnoses / Procedures Referred By Contac t Referred To Contact CT IMAGING Diagnoses Diarrhea, unspecified type Left lower quadrant abdominal pain Procedures CT ABD/PEL W IVCON CT ABD & PELVIS W/CONTRAST Chloe Cheema MD [address] [place] [address] Ct Imaging [facility] Referral ID Status Reason Start Date Expiration Date Visits Requested Visits Authorized [id number] New Request Auto-Generat ed Referral 03/08/2024 04/07/2025 1 1 Additional Source Comments (unrecognized sect ion and content) No Status Records FoundNo Status Records FoundNo Status Records FoundNo Status Records FoundNo Status Records FoundNo Status Records FoundNo Status Records Found INFORMATION SOURCE (unrecogn ized section and content) DATE CREATED AUTHOR 12/05/2017 [facility] DATE CREATED AUTHOR AUTHOR'S ORGANIZ ATION 08/29/2019 [facility] ([place]) DATE CREATED AUTHOR AUTHOR'S ORGANIZ ATION [facility] [place] DATE CREATED AUTHOR AUTHOR'S ORGANIZ ATION 07/20/2023 [facility] DATE CREATED AUTHOR AUTHOR'S ORGANIZ ATION 03/11/2024 [facility] DATE CREATED AUTHOR AUTHOR'S ORGANIZ ATION 02/14/2025 [facility] DATE CREATED AUTHOR AUTHOR'S ORGANIZ ATION 02/16/2025 [facility] Source Comments (unrecognize d section and content) In the event this informatio n is protected by the Federal Confidentiality of Alcohol and Drug Abuse Patient Records regulations: The Federal rules restrict any use of the information to criminally investigate or prosecute any alcohol or drug abuse patient.[facility] the event this information is protected by the Federal Confidentiality of Alcohol and Drug Abuse Patient Records regulations: The Federal rules restrict any use of the information to criminally investigate or prosecute any alcohol or drug abuse patient.[facility]In the event this information is protected by the Federal Confidentiality of Alcohol and Drug Abuse Patient Records regulations: The Federal rules restrict any use of the information to criminally investigate or prosecute any alcohol or drug abuse patient.[facility]In the event this information is protected by the Federal Confidentiality of Alcohol and Drug Abuse Patient Records regulations: The Federal rules restrict any use of the information to criminally investigate or prosecute any alcohol or drug abuse patient.[facility]In the event this information is protected by the Federal Confidentiality of Alcohol and Drug Abuse Patient Records regulations: The Federal rules restrict any use of the information to criminally investigate or prosecute any alcohol or drug abuse patient.[facility]In the event this information is protected by the Federal Confidentiality of Alcohol and Drug Abuse Patient Records regulations: The Federal rules restrict any use of the information to criminally investigate or prosecute any alcohol or drug abuse patient.[facility] the event this information is protected by the Federal Confidentiality of Alcohol and Drug Abuse Patient Records regulations: The Federal rules restrict any use of the information to criminally investigate or prosecute any alcohol or drug abuse patient.[facility]In the event this information is protected by the Federal Confidentiality of Alcohol and Drug Abuse Patient Records regulations: The Federal rules restrict any use of the information to criminally investigate or prosecute any alcohol or drug abuse patient.[facility] WestIn the event this information is protected by the Federal Confidentiality of Alcohol and Drug Abuse Patient Records regulations: The Federal rules restrict any use of the information to criminally investigate or prosecute any alcohol or drug abuse patient.[facility] WestIn the event this information is protected by the Federal Confidentiality of Alcohol and Drug Abuse Patient Records regulations: The Federal rules restrict any use of the information to criminally investigate or prosecute any alcohol or drug abuse patient.[facility]In the event this information is protected by the Federal Confidentiality of Alcohol and Drug Abuse Patient Records regulations: The Federal rules restrict any use of the information to criminally investigate or prosecute any alcohol or drug abuse patient.[facility] WestIn the event this information is protected by the Federal Confidentiality of Alcohol and Drug Abuse Patient Records regulations: The Federal rules restrict any use of the information to criminally investigate or prosecute any alcohol or drug abuse patient.[facility] WestIn the event this information is protected by the Federal Confidentiality of Alcohol and Drug Abuse Patient Records regulations: The Federal rules restrict any use of the information to criminally investigate or prosecute any alcohol or drug abuse patient.[facility]In the event this information is protected by the Federal Confidentiality of Alcohol and Drug Abuse Patient Records regulations: The Federal rules restrict any use of the information to criminally investigate or prosecute any alcohol or drug abuse patient.[facility] WestIn the event this information is protected by the Federal Confidentiality of Alcohol and Drug Abuse Patient Records regulations: The Federal rules restrict any use of the information to criminally investigate or prosecute any alcohol or drug abuse patient.[facility] WestIn the event this information is protected by the Federal Confidentiality of Alcohol and Drug Abuse Patient Records regulations: The Federal rules restrict any use of the information to criminally investigate or prosecute any alcohol or drug abuse patient.[facility] WestIn the event this information is protected by the Federal Confidentiality of Alcohol and Drug Abuse Patient Records regulations: The Federal rules restrict any use of the information to criminally investigate or prosecute any alcohol or drug abuse patient.[facility] WestIn the event this information is protected by the Federal Confidentiality of Alcohol and Drug Abuse Patient Records regulations: The Federal rules restrict any use of the information to criminally investigate or prosecute any alcohol or drug abuse patient.[facility] WestIn the event this information is protected by the Federal Confidentiality of Alcohol and Drug Abuse Patient Records regulations: The Federal rules restrict any use of the information to criminally investigate or prosecute any alcohol or drug abuse patient.[facility] WestIn the event this information is protected by the Federal Confidentiality of Alcohol and Drug Abuse Patient Records regulations: The Federal rules restrict any use of the information to criminally investigate or prosecute any alcohol or drug abuse patient.[facility] WestIn the event this information is protected by the Federal Confidentiality of Alcohol and Drug Abuse Patient Records regulations: The Federal rules restrict any use of the information to criminally investigate or prosecute any alcohol or drug abuse patient.[facility] WestIn the event this information is protected by the Federal Confidentiality of Alcohol and Drug Abuse Patient Records regulations: The Federal rules restrict any use of the information to criminally investigate or prosecute any alcohol or drug abuse patient.[facility] WestIn the event this information is protected by the Federal Confidentiality of Alcohol and Drug Abuse Patient Records regulations: The Federal rules restrict any use of the information to criminally investigate or prosecute any alcohol or drug abuse patient.[facility] WestIn the event this information is protected by the Federal Confidentiality of Alcohol and Drug Abuse Patient Records regulations: The Federal rules restrict any use of the information to criminally investigate or prosecute any alcohol or drug abuse patient.[facility] WestIn the event this information is protected by the Federal Confidentiality of Alcohol and Drug Abuse Patient Records regulations: The Federal rules restrict any use of the information to criminally investigate or prosecute any alcohol or drug abuse patient.[facility] WestIn the event this information is protected by the Federal Confidentiality of Alcohol and Drug Abuse Patient Records regulations: The Federal rules restrict any use of the information to criminally investigate or prosecute any alcohol or drug abuse patient.[facility] WestIn the event this information is protected by the Federal Confidentiality of Alcohol and Drug Abuse Patient Records regulations: The Federal rules restrict any use of the information to criminally investigate or prosecute any alcohol or drug abuse patient.[facility] WestIn the event this information is protected by the Federal Confidentiality of Alcohol and Drug Abuse Patient Records regulations: The Federal rules restrict any use of the information to criminally investigate or prosecute any alcohol or drug abuse patient.[facility] WestIn the event this information is protected by the Federal Confidentiality of Alcohol and Drug Abuse Patient Records regulations: The Federal rules restrict any use of the information to criminally investigate or prosecute any alcohol or drug abuse patient.[facility] WestIn the event this information is protected by the Federal Confidentiality of Alcohol and Drug Abuse Patient Records regulations: The Federal rules restrict any use of the information to criminally investigate or prosecute any alcohol or drug abuse patient.[facility] WestIn the event this information is protected by the Federal Confidentiality of Alcohol and Drug Abuse Patient Records regulations: The Federal rules restrict any use of the information to criminally investigate or prosecute any alcohol or drug abuse patient.[facility]In the event this information is protected by the Federal Confidentiality of Alcohol and Drug Abuse Patient Records regulations: The Federal rules restrict any use of the information to criminally investigate or prosecute any alcohol or drug abuse patient.[facility]In the event this information is protected by the Federal Confidentiality of Alcohol and Drug Abuse Patient Records regulations: The Federal rules restrict any use of the information to criminally investigate or prosecute any alcohol or drug abuse patient.[facility]In the event this information is protected by the Federal Confidentiality of Alcohol and Drug Abuse Patient Records regulations: The Federal rules restrict any use of the information to criminally investigate or prosecute any alcohol or drug abuse patient.[facility] WestIn the event this information is protected by the Federal Confidentiality of Alcohol and Drug Abuse Patient Records regulations: The Federal rules restrict any use of the information to criminally investigate or prosecute any alcohol or drug abuse patient.[facility]In the event this information is protected by the Federal Confidentiality of Alcohol and Drug Abuse Patient Records regulations: The Federal rules restrict any use of the information to criminally investigate or prosecute any alcohol or drug abuse patient.[facility]In the event this information is protected by the Federal Confidentiality of Alcohol and Drug Abuse Patient Records regulations: The Federal rules restrict any use of the information to criminally investigate or prosecute any alcohol or drug abuse patient.[facility] WestIn the event this information is protected by the Federal Confidentiality of Alcohol and Drug Abuse Patient Records regulations: The Federal rules restrict any use of the information to criminally investigate or prosecute any alcohol or drug abuse patient.[facility] WestIn the event this information is protected by the Federal Confidentiality of Alcohol and Drug Abuse Patient Records regulations: The Federal rules restrict any use of the information to criminally investigate or prosecute any alcohol or drug abuse patient.[facility] WestIn the event this information is protected by the Federal Confidentiality of Alcohol and Drug Abuse Patient Records regulations: The Federal rules restrict any use of the information to criminally investigate or prosecute any alcohol or drug abuse patient.[facility] WestIn the event this information is protected by the Federal Confidentiality of Alcohol and Drug Abuse Patient Records regulations: The Federal rules restrict any use of the information to criminally investigate or prosecute any alcohol or drug abuse patient.[facility] WestIn the event this information is protected by the Federal Confidentiality of Alcohol and Drug Abuse Patient Records regulations: The Federal rules restrict any use of the information to criminally investigate or prosecute any alcohol or drug abuse patient.[facility] WestIn the event this information is protected by the Federal Confidentiality of Alcohol and Drug Abuse Patient Records regulations: The Federal rules restrict any use of the information to criminally investigate or prosecute any alcohol or drug abuse patient.[facility] WestIn the event this information is protected by the Federal Confidentiality of Alcohol and Drug Abuse Patient Records regulations: The Federal rules restrict any use of the information to criminally investigate or prosecute any alcohol or drug abuse patient.[facility] WestIn the event this information is protected by the Federal Confidentiality of Alcohol and Drug Abuse Patient Records regulations: The Federal rules restrict any use of the information to criminally investigate or prosecute any alcohol or drug abuse patient.[facility] WestIn the event this information is protected by the Federal Confidentiality of Alcohol and Drug Abuse Patient Records regulations: The Federal rules restrict any use of the information to criminally investigate or prosecute any alcohol or drug abuse patient.[facility] WestIn the event this information is protected by the Federal Confidentiality of Alcohol and Drug Abuse Patient Records regulations: The Federal rules restrict any use of the information to criminally investigate or prosecute any alcohol or drug abuse patient.[facility] WestIn the event this information is protected by the Federal Confidentiality of Alcohol and Drug Abuse Patient Records regulations: The Federal rules restrict any use of the information to criminally investigate or prosecute any alcohol or drug abuse patient.[facility] WestIn the event this information is protected by the Federal Confidentiality of Alcohol and Drug Abuse Patient Records regulations: The Federal rules restrict any use of the information to criminally investigate or prosecute any alcohol or drug abuse patient.[facility] WestIn the event this information is protected by the Federal Confidentiality of Alcohol and Drug Abuse Patient Records regulations: The Federal rules restrict any use of the information to criminally investigate or prosecute any alcohol or drug abuse patient.[facility] WestIn the event this information is protected by the Federal Confidentiality of Alcohol and Drug Abuse Patient Records regulations: The Federal rules restrict any use of the information to criminally investigate or prosecute any alcohol or drug abuse patient.[facility] WestIn the event this information is protected by the Federal Confidentiality of Alcohol and Drug Abuse Patient Records regulations: The Federal rules restrict any use of the information to criminally investigate or prosecute any alcohol or drug abuse patient.[facility] WestIn the event this information is protected by the Federal Confidentiality of Alcohol and Drug Abuse Patient Records regulations: The Federal rules restrict any use of the information to criminally investigate or prosecute any alcohol or drug abuse patient.[facility] WestIn the event this information is protected by the Federal Confidentiality of Alcohol and Drug Abuse Patient Records regulations: The Federal rules restrict any use of the information to criminally investigate or prosecute any alcohol or drug abuse patient.[facility] WestIn the event this information is protected by the Federal Confidentiality of Alcohol and Drug Abuse Patient Records regulations: The Federal rules restrict any use of the information to criminally investigate or prosecute any alcohol or drug abuse patient.[facility] WestIn the event this information is protected by the Federal Confidentiality of Alcohol and Drug Abuse Patient Records regulations: The Federal rules restrict any use of the information to criminally investigate or prosecute any alcohol or drug abuse patient.[facility] WestIn the event this information is protected by the Federal Confidentiality of Alcohol and Drug Abuse Patient Records regulations: The Federal rules restrict any use of the information to criminally investigate or prosecute any alcohol or drug abuse patient.[facility] WestIn the event this information is protected by the Federal Confidentiality of Alcohol and Drug Abuse Patient Records regulations: The Federal rules restrict any use of the information to criminally investigate or prosecute any alcohol or drug abuse patient.[facility] WestIn the event this information is protected by the Federal Confidentiality of Alcohol and Drug Abuse Patient Records regulations: The Federal rules restrict any use of the information to criminally investigate or prosecute any alcohol or drug abuse patient.[facility] WestIn the event this information is protected by the Federal Confidentiality of Alcohol and Drug Abuse Patient Records regulations: The Federal rules restrict any use of the information to criminally investigate or prosecute any alcohol or drug abuse patient.[facility] WestIn the event this information is protected by the Federal Confidentiality of Alcohol and Drug Abuse Patient Records regulations: The Federal rules restrict any use of the information to criminally investigate or prosecute any alcohol or drug abuse patient.[facility] WestIn the event this information is protected by the Federal Confidentiality of Alcohol and Drug Abuse Patient Records regulations: The Federal rules restrict any use of the information to criminally investigate or prosecute any alcohol or drug abuse patient.[facility] WestIn the event this information is protected by the Federal Confidentiality of Alcohol and Drug Abuse Patient Records regulations: The Federal rules restrict any use of the information to criminally investigate or prosecute any alcohol or drug abuse patient.[facility] WestIn the event this information is protected by the Federal Confidentiality of Alcohol and Drug Abuse Patient Records regulations: The Federal rules restrict any use of the information to criminally investigate or prosecute any alcohol or drug abuse patient.[facility] WestIn the event this information is protected by the Federal Confidentiality of Alcohol and Drug Abuse Patient Records regulations: The Federal rules restrict any use of the information to criminally investigate or prosecute any alcohol or drug abuse patient.[facility] WestIn the event this information is protected by the Federal Confidentiality of Alcohol and Drug Abuse Patient Records regulations: The Federal rules restrict any use of the information to criminally investigate or prosecute any alcohol or drug abuse patient.[facility] WestIn the event this information is protected by the Federal Confidentiality of Alcohol and Drug Abuse Patient Records regulations: The Federal rules restrict any use of the information to criminally investigate or prosecute any alcohol or drug abuse patient.[facility] WestIn the event this information is protected by the Federal Confidentiality of Alcohol and Drug Abuse Patient Records regulations: The Federal rules restrict any use of the information to criminally investigate or prosecute any alcohol or drug abuse patient.[facility] WestIn the event this information is protected by the Federal Confidentiality of Alcohol and Drug Abuse Patient Records regulations: The Federal rules restrict any use of the information to criminally investigate or prosecute any alcohol or drug abuse patient.[facility] WestIn the event this information is protected by the Federal Confidentiality of Alcohol and Drug Abuse Patient Records regulations: The Federal rules restrict any use of the information to criminally investigate or prosecute any alcohol or drug abuse patient.[facility] WestIn the event this information is protected by the Federal Confidentiality of Alcohol and Drug Abuse Patient Records regulations: The Federal rules restrict any use of the information to criminally investigate or prosecute any alcohol or drug abuse patient.[facility] WestIn the event this information is protected by the Federal Confidentiality of Alcohol and Drug Abuse Patient Records regulations: The Federal rules restrict any use of the information to criminally investigate or prosecute any alcohol or drug abuse patient.[facility] WestIn the event this information is protected by the Federal Confidentiality of Alcohol and Drug Abuse Patient Records regulations: The Federal rules restrict any use of the information to criminally investigate or prosecute any alcohol or drug abuse patient.[facility] WestIn the event this information is protected by the Federal Confidentiality of Alcohol and Drug Abuse Patient Records regulations: The Federal rules restrict any use of the information to criminally investigate or prosecute any alcohol or drug abuse patient.[facility] WestIn the event this information is protected by the Federal Confidentiality of Alcohol and Drug Abuse Patient Records regulations: The Federal rules restrict any use of the information to criminally investigate or prosecute any alcohol or drug abuse patient.[facility] WestIn the event this information is protected by the Federal Confidentiality of Alcohol and Drug Abuse Patient Records regulations: The Federal rules restrict any use of the information to criminally investigate or prosecute any alcohol or drug abuse patient.[facility] WestIn the event this information is protected by the Federal Confidentiality of Alcohol and Drug Abuse Patient Records regulations: The Federal rules restrict any use of the information to criminally investigate or prosecute any alcohol or drug abuse patient.[facility] WestIn the event this information is protected by the Federal Confidentiality of Alcohol and Drug Abuse Patient Records regulations: The Federal rules restrict any use of the information to criminally investigate or prosecute any alcohol or drug abuse patient.[facility] WestIn the event this information is protected by the Federal Confidentiality of Alcohol and Drug Abuse Patient Records regulations: The Federal rules restrict any use of the information to criminally investigate or prosecute any alcohol or drug abuse patient.[facility] WestIn the event this information is protected by the Federal Confidentiality of Alcohol and Drug Abuse Patient Records regulations: The Federal rules restrict any use of the information to criminally investigate or prosecute any alcohol or drug abuse patient.[facility] WestIn the event this information is protected by the Federal Confidentiality of Alcohol and Drug Abuse Patient Records regulations: The Federal rules restrict any use of the information to criminally investigate or prosecute any alcohol or drug abuse patient.[facility] WestIn the event this information is protected by the Federal Confidentiality of Alcohol and Drug Abuse Patient Records regulations: The Federal rules restrict any use of the information to criminally investigate or prosecute any alcohol or drug abuse patient.[facility] WestIn the event this information is protected by the Federal Confidentiality of Alcohol and Drug Abuse Patient Records regulations: The Federal rules restrict any use of the information to criminally investigate or prosecute any alcohol or drug abuse patient.[facility] WestIn the event this information is protected by the Federal Confidentiality of Alcohol and Drug Abuse Patient Records regulations: The Federal rules restrict any use of the information to criminally investigate or prosecute any alcohol or drug abuse patient.[facility] WestIn the event this information is protected by the Federal Confidentiality of Alcohol and Drug Abuse Patient Records regulations: The Federal rules restrict any use of the information to criminally investigate or prosecute any alcohol or drug abuse patient.[facility] WestIn the event this information is protected by the Federal Confidentiality of Alcohol and Drug Abuse Patient Records regulations: The Federal rules restrict any use of the information to criminally investigate or prosecute any alcohol or drug abuse patient.[facility] WestIn the event this information is protected by the Federal Confidentiality of Alcohol and Drug Abuse Patient Records regulations: The Federal rules restrict any use of the information to criminally investigate or prosecute any alcohol or drug abuse patient.[facility] WestIn the event this information is protected by the Federal Confidentiality of Alcohol and Drug Abuse Patient Records regulations: The Federal rules restrict any use of the information to criminally investigate or prosecute any alcohol or drug abuse patient.[facility] WestIn the event this information is protected by the Federal Confidentiality of Alcohol and Drug Abuse Patient Records regulations: The Federal rules restrict any use of the information to criminally investigate or prosecute any alcohol or drug abuse patient.[facility] WestIn the event this information is protected by the Federal Confidentiality of Alcohol and Drug Abuse Patient Records regulations: The Federal rules restrict any use of the information to criminally investigate or prosecute any alcohol or drug abuse patient.[facility] Reason for Visit (unrecogniz ed section and [...] W IVCON CT ABD & PELVIS W/CONTRAST Chloe Cheema MD [address] [place] [address] [facility] [place] [id number] Referral ID Status Reason Start Date Expiration Date V isits Requested Visits Authorized [id number] Closed Financial Clearance Not Required 03/08/2024 04/07/2025 2 2 Reason Comments Radio Gen RMP Specialty Diagnoses / Procedures Referred By Contac t Referred To Contact XR IMAGING Diagnoses Pain Procedures XR FOOT GENERAL 3V AP/LAT/OBL RIGHT RADEX FOOT COMPLETE MINIMUM 3 VIEWS Oliva Gutierrez PA-C [address] [place] [address] X[facility] [place] [id number] Referral ID Status Reason Start Date Expiration Date V isits Requested Visits Authorized [id number] Closed Auto-Generate d Referral 09/08/2021 10/08/2022 1 [...] SURGERY OFFICE/OUTPATIENT NEW HIGH MDM 60 MINUTES Chloe Cheema MD [address] [place] [address] Phone: tel: fax: Referral ID Status Reason Start Date Expiration Date V isits Requested Visits Authorized [id number] Closed PCP Requested Referral 12/24/2024 12/24/2025 1 1 Reason Onset Date Comments Transition Of Care 02/03/2025 Care Teams (unrecognized sec tion and content) Last Waxer Relationship Specialty Start Date End Date Chloe Cheema MD [address] [place] [address] PCP - General Family Practice 04/13/12 Last Waxer Relationship Specialty Start Date End Date Chloe Cheema MD [address] [place] [address] [place] [address] PCP - General Family Practice 04/13/12 Last Waxer Relationship Specialty Start Date End Date Chloe Cheema MD [address] [place] [address] [place] [address] PCP - General Family Practice 04/13/12 Last Waxer Relationship Specialty Start Date End Date Chloe Cheema MD [address] [place] [address] [place] [address] PCP - General Family Practice 04/13/12 Last Waxer Relationship Specialty Start Date End Date Chloe Cheema MD [address] [place] [address] [place] [address] PCP - General Family Practice 04/13/12 Last Waxer Relationship Specialty Start Date End Date Chloe Cheema MD [facility] [place] [address] PCP - General Family Practice 04/13/12 Last Waxer Relationship Specialty Start Date End Date Chloe Cheema MD [address] [place] [address], [place] [address] PCP - General Family Practice 04/13/12 Last Waxer Relationship Specialty Start Date End Date Chloe Cheema MD [facility] [address] PCP - General Family Practice 04/13/12 Last Waxer Relationship Specialty Start Date End Date Chloe Cheema MD [address] [place] [address] PCP - General Family Practice 04/13/12 Last Waxer Relationship Specialty Start Date End Date Chloe Cheema MD [address] [place] [address] PCP - General Family Practice 04/13/12 Last Waxer Relationship Specialty Start Date End Date Chloe Cheema MD [address] [place] [address] PCP - General Family Practice 04/13/12 Last Waxer Relationship Specialty Start Date End Date Chloe Cheema MD [address] [place] [address] PCP - General Family Medicine 04/13/12 Last Waxer Relationship Specialty Start Date End Date Chloe Cheema MD [address] [place] [address] PCP - General Family Medicine 04/13/12 Team Status: Active Member Role Status Dates Dr. Chloe Cheema MD Family Provider Active Dr. Chloe Cheema MD Primary Care Provider Active Team Status: Inactive Member Role Status Dates Dr. Chloe Cheema MD Primary Care Provider, Referring Provider Active Dr. Willis Alfred MD Attending Provider Active Team Status: Inactive Member Role Status Dates Dr. Chloe Cheema MD Primary Care Provider, Referring Provider Active Hussein Gramajo EPITAXIAL REACTOR OPERATOR, EPITAXIAL REACTOR OPERATOR-C Attending Provider Active Team Status: Active Member Role Status Dates Dr. Chloe Cheema MD Primary Care Provider Active Dr. Willis Alfred MD Attending Provider Active Team Status: Inactive Member Role Status Dates Dr. Chloe Cheema MD Primary Care Provider, Referring Provider Active Aparna Gooden EPITAXIAL REACTOR OPERATOR, EPITAXIAL REACTOR OPERATOR-C Attending Provider Active Team Status: Active Member Role Status Dates Dr. Chloe Cheema MD Primary Care Provider Active Dr. Willis Alfred MD Attending Provid er, Referring Provider, Other Provider Active Team Status: Active Member Role Status Dates Dr. Chloe Cheema MD Primary Care Provider Active Dr. Willis Alfred MD Referring Provider, Other Prov ider Active Dr. Shaji Wyatt DO Attending Provider Active Team Status: Inactive Member Role Status Dates Dr. Chloe Cheema MD Primary Care Provider Active Dr. Gamal Ramos MD Attending Provider, Referr ing Provider Active Dr. Willis Alfred MD Other Provider Active Team Status: Inactive Member Role Status Dates Dr. Chloe Cheema MD Primary Care Provider Active Dr. Gamal Ramos MD Attending Provider, Referr ing Provider Active Team Status: Inactive Member Role Status Dates Dr. Chloe Cheema MD Primary Care Provider Active Dr. Willis Alfred MD Attending Provider, Referring Provider Active Team Status: Inactive Member Role Status Dates Dr. Chloe Cheema MD Primary Care Provider Active Dr. Willis Alfred MD Attending Provider Active Team Status: Inactive Member Role Status Dates Dr. Chloe Cheema MD Primary Care Provider Active Stew Shi MD Attending Provider, Emergency Provid er Active Last Waxer Relationship Specialty Start Date End Date Chloe Cheema MD [address] [place] [address] PCP - General Family Medicine 04/13/12 Last Waxer Relationship Specialty Start Date End Date Chloe Cheema MD [address] [place] [address] PCP - General Family Medicine 04/13/12 Last Waxer Relationship Specialty Start Date End Date Chloe Cheema MD [address] [place] [address] PCP - General Family Medicine 04/13/12 Last Waxer Relationship Specialty Start Date End Date Chloe Cheema MD [address] [place] [address] PCP - General Family Medicine 04/13/12 Last Waxer Relationship Specialty Start Date End Date Chloe Cheema MD [address] [place] [address] PCP - General Family Medicine 04/13/12 Last Waxer Relationship Specialty Start Date End Date Chloe Cheema MD [address] [place], [place] [address] PCP - General Family Medicine 04/13/12 Last Waxer Relationship Specialty Start Date End Date Chloe Cheema MD [address] [place], [place] [address] PCP - General Family Medicine 04/13/12 Team Status: Active Member Role Status Dates Dr. Chloe Cheema MD Primary Care Provider Active SARA Young Attending Provider, Referring Pro vider Active Team Status: Active Member Role Status Dates Dr. Chloe Cheema MD Primary Care Provider Active Dr. Nahum Dias , Emergency Provider Active Dr. Lucy Partida MD Admit Provider, Attending Prov ider Active Team Status: Inactive Member Role Status Dates Dr. Chloe Cheema MD Primary Care Provider Active Dr. Vee Horton MD Emergency Provider Active Team Status: Active Member Role Status Dates Dr. Chloe Cheema MD Primary Care Provider Active Dr. Nahum Dias DO Emergency Provider Active Dr. Lucy Partida MD Admit Provider, Attending Provider, Other Provider Active Team Status: Inactive Member Role Status Dates Dr. Chloe Cheema MD Primary Care Provider Active Dr. Nahum Dias , Emergency Provider Active Dr. Lucy Partida MD Admit Provider, Other Provider Active Dr. Librado Bah , DO Attending Provider Active Last Waxer Relationship Specialty Start Date End Date Chloe Cheema MD [address] [place], [place] [address] PCP - General Family Medicine 04/13/12 Last Waxer Relationship Specialty Start Date End Date Chloe Cheema MD [address] [place], [place] [id number] PCP - General Family Medicine 04/13/12 Last Waxer Relationship Specialty Start Date End Date Chloe Cheema MD [address] [place], [place] [address] PCP - General Family Medicine 04/13/12 Last Waxer Relationship Specialty Start Date End Date Chloe Cheema MD [address] [place], [place] [address] PCP - General Family Medicine 04/13/12 Last Waxer Relationship Specialty Start Date End Date Chloe Cheema MD [address] [place], [place] [address] PCP - General Family Medicine 04/13/12 Team Status: Active Member Role Status Dates Dr. Chloe Cheema MD Primary Care Provider Active GEOFF SAMUELS Attending Provider Active Team Status: Inactive Member Role Status Dates Dr. Chloe Cheema MD Primary Care Provider Active GEOFF SAMUELS Attending Provider Active Last Waxer Relationship Specialty Start Date End Date Chloe Cheema MD [address] [place], [place] [id number] PCP - General Family Medicine 04/13/12 Team Status: Inactive Member Role Status Dates Dr. Chloe Cheema MD Primary Care Provider, Referring Provider Active Aparna Gooden NP, EPITAXIAL REACTOR OPERATOR-C Active Dr. Flores Glover MD Attending Provider Active Team Status: Inactive Member Role Status Dates Dr. Chloe Cheema MD Primary Care Provider Active SARA WEST Attending Provider, Referring Pro vider Active Dr. Flores Glover MD Other Provider Active Last Waxer Relationship Specialty Start Date End Date Chloe Cheema MD [address] [place], [place] [address] PCP - General Family Medicine 04/13/12 Last Waxer Relationship Specialty Start Date End Date Chloe Cheema MD [address] [place], [place] [address] PCP - General Family Medicine 04/13/12 Last Waxer Relationship Specialty Start Date End Date Chloe Cheema MD [address] [place] [address] PCP - General Family Medicine 04/13/12 Team Status: Inactive Member Role Status Dates Dr. Chloe Cheema MD Primary Care Provider, Referring Provider Active Dr. Flores Glover MD Attending Provider Active Team Status: Inactive Member Role Status Dates Dr. Chloe Cheema MD Primary Care Provider Active Dr. Sergo Perez MD Attending Provider Active Team Status: Inactive Member Role Status Dates Dr. Chloe Cheema MD Primary Care Provider Active Dr. Flores Glover MD Attending Provider, Referring Pr ovider Active Last Waxer Relationship Specialty Start Date End Date Chloe Cheema MD [address] [place], [place] [address] PCP - General Family Medicine 04/13/12 Last Waxer Relationship Specialty Start Date End Date Chloe Cheema MD [address] [place] [address] PCP - General Family Medicine 04/13/12 Last Waxer Relationship Specialty Start Date End Date Chloe Cheema MD [address] [place], [place] [address] PCP - General Family Medicine 04/13/12 Last Waxer Relationship Specialty Start Date End Date Chloe Cheema MD [address] [place] [address] PCP - General Family Medicine 04/13/12 Last Waxer Relationship Specialty Start Date End Date Chloe Cheema MD [address] [place], [place] [address] PCP - General Family Medicine 04/13/12 Last Waxer Relationship Specialty Start Date End Date Chloe Cheema MD [address] [place], [place] [address] PCP - General Family Medicine 04/13/12 Last Waxer Relationship Specialty Start Date End Date Chloe Cheeam MD [address] [place] [address] PCP - General Family Medicine 04/13/12 Last Waxer Relationship Specialty Start Date End Date Chloe Chemea MD [address] [place] [address] PCP - General Family Medicine 04/13/12 Last Waxer Relationship Specialty Start Date End Date Chloe Cheema MD [address] [place] [address] PCP - General Family Medicine 04/13/12 Last Waxer Relationship Specialty Start Date End Date Chloe Cheema MD [address] [place] [address] PCP - General Family Medicine 04/13/12 Last Waxer Relationship Specialty Start Date End Date Chloe Cheema MD [address] [place] [address] PCP - General Family Medicine 04/13/12 Last Waxer Relationship Specialty Start Date End Date Chloe Cheema MD [address] [place] [address] PCP - General Family Medicine 04/13/12 Last Waxer Relationship Specialty Start Date End Date Chloe Cheema MD [address] [place] [address] PCP - General Family Medicine 04/13/12 Last Waxer Relationship Specialty Start Date End Date Chloe Cheema MD [address] [place] [address] PCP - General Family Medicine 04/13/12 Last Waxer Relationship Specialty Start Date End Date Chloe Cheema MD [address] [place] [address] PCP - General Family Medicine 04/13/12 Last Waxer Relationship Specialty Start Date End Date Chloe Cheema MD [address] [place] [address] PCP - General Family Medicine 04/13/12 Last Waxer Relationship Specialty Start Date End Date Chloe Cheema MD [address] [place] [address] PCP - General Family Medicine 04/13/12 Last Waxer Relationship Specialty Start Date End Date Chloe Cheema MD [address] [place] [address] PCP - General Family Medicine 04/13/12 Susan Kerr APRN.CENTER MEDICAL DIRECTOR [address] [place] [address] Stair [employer] Family Medicine 05/27/24 Beverley Casas AIRPLANE FLIGHT ATTENDANT.CENTER MEDICAL DIRECTOR [address] [place] [address] Stair [facility] Family Medicine 05/27/24 Last Waxer Relationship Specialty Start Date End Date Chloe Cheema MD [address] [place] [address] PCP - General Family Medicine 04/13/12 Susan Kerr APRN.CENTER MEDICAL DIRECTOR [address] [place], [place] [address] Stair Builder Family Medicine 05/27/24 Last Waxer Relationship Specialty Start Date End Date Chloe Cheema MD [address] [place] [address] PCP - General Family Medicine 04/13/12 Susan Kerr AIRPLANE FLIGHT ATTENDANT.CENTER MEDICAL DIRECTOR [address] [facility] [place] [address] Stair Builder Family [facility] 05/27/24 Last Waxer Relationship Specialty Start Date End Date Chloe Cheema MD [address] [facility] [place] [address] PCP - General Family Medicine 04/13/12 Susan Kerr, AIRPLANE FLIGHT ATTENDANT.CENTER MEDICAL DIRECTOR [address] [facility] [place] [address] [facility]/24 Last Waxer Relationship Specialty Start Date End Date Chloe Cheema MD [address] [facility] [place] [address] PCP - General Family Medicine 04/13/12 Susan Kerr, AIRPLANE FLIGHT ATTENDANT.CENTER MEDICAL DIRECTOR [address] [facility] [place] [address] Stair Builder Family Medicine 05/27/24 Beverley Casas AIRPLANE FLIGHT ATTENDANT.CENTER MEDICAL DIRECTOR [address] [facility] [place] [address] [facility] 05/27/24 Last Waxer Relationship Specialty Start Date End Date Chloe Cheema MD [address] [facility] [place], [place] [address] PCP - General Family Medicine 04/13/12 Susan Kerr APRN.CENTER MEDICAL DIRECTOR [address] [facility] [place] [address] Stair Builder Family [facility] 05/27/24 Beverley Casas APRN.CENTER MEDICAL DIRECTOR [address] [place] [address] [facility] 05/27/24 Last Waxer Relationship Specialty Start Date End Date Chloe Cheema MD [address] [place] [address] PCP - General Family Medicine 04/13/12 Susan Kerr APRN.CENTER MEDICAL DIRECTOR [address] [facility] [place] [address] [facility] 05/27/24 Beverley Casas AIRPLANE FLIGHT ATTENDANT.CENTER MEDICAL DIRECTOR [address] [place] [address] [facility] 05/27/24 Last Waxer Relationship Specialty Start Date End Date Chloe Cheema MD [address] [place] [address] PCP - General Family Medicine 04/13/12 Susan Kerr APRN.CENTER MEDICAL DIRECTOR [address] [facility] [place] [address] [facility] 05/27/24 Beverley Casas AIRPLANE FLIGHT ATTENDANT.CENTER MEDICAL DIRECTOR [address] [place] [address] [facility] 05/27/24 Last Waxer Relationship Specialty Start Date End Date Chloe Cheema MD [address] [facility] [place] [address] PCP - General Family Medicine 04/13/12 Susan Kerr APRN.CENTER MEDICAL DIRECTOR [address] [place] [address] Stair Builder Family Medicine 05/27/24 Beverley Casas APRN.CENTER MEDICAL DIRECTOR [address] [facility] [place] [address] Stair Builder Family Medicine 05/27/24 Last Waxer Relationship Specialty Start Date End Date Chloe Cheema MD [address] [facility] [place] [address] PCP - General Family Medicine 04/13/12 Susan Kerr APRN.CENTER MEDICAL DIRECTOR [address] [facility] [place] [address] Stair Builder Family Medicine 05/27/24 Beverley Casas APRN.CENTER MEDICAL DIRECTOR [address] [place] [address] St[facility] Medicine 05/27/24 Last Waxer Relationship Specialty Start Date End Date Chloe Cheema MD [address] [facility] [place] [address] PCP - General Family Medicine 04/13/12 Susan Kerr APRN.CENTER MEDICAL DIRECTOR [address] [facility] [place] [address] Stair Builder Family Medicine 05/27/24 Beverley Casas APRN.CENTER MEDICAL DIRECTOR [address] [place] [address] Stair Builder [facility] 05/27/24 Last Waxer Relationship Specialty Start Date End Date Chloe Cheema MD [address] [facility] [place] [address] PCP - General Family Medicine 04/13/12 Susan Kerr AIRPLANE FLIGHT ATTENDANT.CENTER MEDICAL DIRECTOR [address] [place] [address] Stair Builder Family Medicine 05/27/24 Beverley Casas AIRPLANE FLIGHT ATTENDANT.CENTER MEDICAL DIRECTOR [address] [place] [address] [facility] 05/27/24 Last Waxer Relationship Specialty Start Date End Date Chloe Cheema MD [address] [place] [address] PCP - General Family Medicine 04/13/12 Susan Kerr AIRPLANE FLIGHT ATTENDANT.CENTER MEDICAL DIRECTOR [address] [place] [address] [facility] 05/27/24 Beverley Casas AIRPLANE FLIGHT ATTENDANT.CENTER MEDICAL DIRECTOR [address] [place] [address] [facility] 05/27/24 Last Waxer Relationship Specialty Start Date End Date Chloe Cheema MD [address] [place] [address] PCP - General Family Medicine 04/13/12 Susan Kerr, AIRPLANE FLIGHT ATTENDANT.CENTER MEDICAL DIRECTOR [address] [place] [address] [facility] 05/27/24 Beverley Casas APRN.CENTER MEDICAL DIRECTOR [address] [facility], [place] [address] [facility] 05/27/24 Last Waxer Relationship Specialty Start Date End Date Chloe Cheema MD [address] [facility], [place] [address] PCP - General Family Medicine 04/13/12 Susan Kerr APRN.CENTER MEDICAL DIRECTOR [address] [place], [place] [address] [facility] 05/27/24 Beverley Casas APRN.CENTER MEDICAL DIRECTOR [address] [place], [place] [id number] [facility] 05/27/24 Team Status: Active Member Role Status Dates Dr. Chloe Cheema MD Primary Care Provider Active Team Status: Inactive Member Role Status Dates Dr. Chloe Cheema MD Primary Care Provider Active Start: August 16, 2024 End: August 16, 2024 Dr. Chloe Cheema MD Referring Provider Active Start: August 16, 2024 End: August 16, 2024 Hussein Gramajo EPITAXIAL REACTOR OPERATOR, EPITAXIAL REACTOR OPERATOR-C Attending Provider Active S tart: August 16, 2024 End: August 16, 2024 Team Status: Inactive Member Role Status Dates Dr. Chloe Cheema MD Primary Care Provider Active Start: October 28, 2024 End: October 28, 2024 Dr. Wendy Mclaughlin DO Emergency Provider Active Start: October 28, 2024 End: October 28, 2024 Last Waxer Relationship Specialty Start Date End Date Chloe Cheema MD [address] [place], [place] [id number] PCP - General Family Medicine 04/13/12 Susan Kerr APRN.CENTER MEDICAL DIRECTOR [address] [facility], [place] [address] [facility] 05/27/24 Beverley Casas APRN.CENTER MEDICAL DIRECTOR [address] [place] [address] [facility] 05/27/24 Last Waxer Relationship Specialty Start Date End Date Chloe Cheema MD [address] [facility], [place] [address] PCP - General Family Medicine 04/13/12 Susan Kerr APRN.CENTER MEDICAL DIRECTOR [address] [facility] [place] [address] [facility] 05/27/24 Beverley Casas APRN.CENTER MEDICAL DIRECTOR [address] [facility], [place] [address] [facility] 05/27/24 Team Status: Inactive Member Role Status Dates Dr. Chloe Cheema MD Primary Care Provider Active Start: October 28, 2024 End: October 28, 2024 Dr. Wendy Mclaughlin DO Attending Provider Active Start: October 28, 2024 End: October 28, 2024 Dr. Wendy Mclaughlin DO Emergency Provider Active Start: October 28, 2024 End: October 28, 2024 Team Status: Inactive Member Role Status Dates Dr. Chloe Cheema MD Primary Care Provider Active Start: November 20, 2024 End: November 20, 2024 Dr. Jose Alberto Contreras MD Emergency Provider Active Start: November 20, 2024 End: November 20, 2024 Team Status: Inactive Member Role Status Dates Dr. Chloe Cheema MD Primary Care Provider Active Start: November 20, 2024 End: November 20, 2024 Dr. Jose Alberto Contreras MD Attending Provider Active Start: November 20, 2024 End: November 20, 2024 Dr. Jose Alberto Contreras MD Emergency Provider Active Start: November 20, 2024 End: November 20, 2024 Team Status: Active Member Role Status Dates Dr. Chloe Cheema MD Primary Care Provider Active Start: November 21, 2024 Dr. Karl Vo MD Attending Provider Active Start: November 21, 2024 Dr. Karl Vo MD Referring Provider Active Start: November 21, 2024 Team Status: Active Member Role Status Dates Dr. Chloe Cheema MD Primary Care Provider Active Start: November 21, 2024 Dr. Karl Vo MD Referring Provider Active Start: November 21, 2024 Dr. Karl Vo MD Other Provider Active St art: November 21, 2024 Dr. Denise Haywood MD Attending Provider Activ e Start: November 21, 2024 Team Status: Inactive Member Role Status Dates Dr. Chloe Cheema MD Primary Care Provider Active Start: November 28, 2024 End: November 28, 2024 Dr. Chloe Cheema MD Referring Provider Active Start: November 28, 2024 End: November 28, 2024 Hussein Gramajo EPITAXIAL REACTOR OPERATOR, EPITAXIAL REACTOR OPERATOR-C Attending Provider Active S tart: November 28, 2024 End: November 28, 2024 Team Status: Inactive Member Role Status Dates Dr. Chloe Cheema MD Primary Care Provider Active Start: November 21, 2024 End: November 21, 2024 Dr. Karl Vo MD Attending Provider Active Start: November 21, 2024 End: November 21, 2024 Dr. Karl Vo MD Referring Provider Active Start: November 21, 2024 End: November 21, 2024 Last Waxer Relationship Specialty Start Date End Date Chloe Cheema MD [address] [place], [place] [address] PCP - General Family Medicine 04/13/12 Susan Kerr, AIRPLANE FLIGHT ATTENDANT.CENTER MEDICAL DIRECTOR [address] [place], [place] [id number] Stair Builder Family Medicine 05/27/24 Beverley Casas, AIRPLANE FLIGHT ATTENDANT.CENTER MEDICAL DIRECTOR [address] [place], [place] [id number] [facility] 05/27/24 Last Waxer Relationship Specialty Start Date End Date Chloe Cheema MD [address] [facility] [place] [address] PCP - General Family Medicine 04/13/12 Susan Kerr APRN.CENTER MEDICAL DIRECTOR [address] [facility] [place] [address] Stair Builder Family Medicine 05/27/24 Beverley Casas APRN.CENTER MEDICAL DIRECTOR [address] [place] [address] [facility] Medicine 05/27/24 Last Waxer Relationship Specialty Start Date End Date Chloe Cheema MD [address] [place] [address] PCP - General Family Medicine 04/13/12 Susan Kerr APRN.CENTER MEDICAL DIRECTOR [address] [facility] [place] [address] [facility] 05/27/24 Beverley Casas APRN.CENTER MEDICAL DIRECTOR [address] [facility] [place] [address] [facility] 05/27/24 Last Waxer Relationship Specialty Start Date End Date Chloe Cheema MD [address] [place] [address] PCP - General Family Medicine 04/13/12 Susan Kerr APRN.CENTER MEDICAL DIRECTOR [address] [facility] [place] [address] Stair Builder Family Medicine 05/27/24 Beverley Casas APRN.CENTER MEDICAL DIRECTOR [address] [place] [address] Stair Builder [facility] 05/27/24 Last Waxer Relationship Specialty Start Date End Date Chloe Cheema MD [address] [place] [address] PCP - General Family Medicine 04/13/12 Susan Kerr APRN.CENTER MEDICAL DIRECTOR [address] [facility] [place] [address] Stair Builder [facility] Medicine 05/27/24 Beverley Casas APRN.CENTER MEDICAL DIRECTOR [address] [place] [address] [facility] 05/27/24 Last Waxer Relationship Specialty Start Date End Date Chloe Cheema MD [address] [place] [address] PCP - General Family Medicine 04/13/12 Susan Kerr APRN.CENTER MEDICAL DIRECTOR [address] [place] [address] [facility] 05/27/24 Beverley Casas AIRPLANE FLIGHT ATTENDANT.CENTER MEDICAL DIRECTOR [address] [place] [address] [facility] 05/27/24 Team Status: Active Member Role/Relationship Status Dates Dr. Chloe Cheema MD Primary Care Provider Active Team Status: Inactive Member Role/Relationship Status Dates Dr. Chloe Cheema MD Primary Care Provider Active Start: October 28, 2024 End: October 28, 2024 Dr. Wendy Mclaughlin DO Attending Provider Active Start: October 28, 2024 End: October 28, 2024 Dr. Wendy Mclaughlin DO Emergency Provider Active Start: October 28, 2024 End: October 28, 2024 Team Status: Inactive Member Role/Relationship Status Dates Dr. Chloe Cheema MD Primary Care Provider Active Start: November 20, 2024 End: November 20, 2024 Dr. Jose Alberto Contreras MD Attending Provider Active Start: November 20, 2024 End: November 20, 2024 Dr. Jose Alberto Contreras MD Emergency Provider Active Start: November 20, 2024 End: November 20, 2024 Team Status: Inactive Member Role/Relationship Status Dates Dr. Chloe Cheema MD Primary Care Provider Active Start: November 21, 2024 End: November 21, 2024 Dr. Karl Vo MD Attending Provider Active Start: November 21, 2024 End: November 21, 2024 Dr. Karl Vo MD Referring Provider Active Start: November 21, 2024 End: November 21, 2024 Team Status: Active Member Role/Relationship Status Dates Dr. Chloe Cheema MD Primary Care Provider Active Start: November 21, 2024 Dr. Karl Vo MD Referring Provider Active Start: November 21, 2024 Dr. Karl Vo MD Other Provider Active St art: November 21, 2024 Dr. Denise Haywood MD Attending Provider Activ e Start: November 21, 2024 Team Status: Inactive Member Role/Relationship Status Dates Dr. Chloe Cheema MD Primary Care Provider Active Start: November 28, 2024 End: November 28, 2024 Dr. Chloe Cheema MD Referring Provider Active Start: November 28, 2024 End: November 28, 2024 Hussein Gramajo EPITAXIAL REACTOR OPERATOR, EPITAXIAL REACTOR OPERATOR-C Attending Provider Active S tart: November 28, 2024 End: November 28, 2024 Team Status: Active Member Role/Relationship Status Dates Dr. Chloe Cheema MD Primary Care Provider Active Start: January 30, 2025 Dr. Chapis Polo MD Emergency Provider Active S tart: January 30, 2025 Dr. Ashley Jacobs DO Admit Provider Active Start: January 30, 2025 Dr. Ashley Jacobs DO Attending Provider Active Start: January 30, 2025 Team Status: Active Member Role/Relationship Status Dates Dr. Chloe Cheema MD Primary Care Provider Active Start: January 31, 2025 Dr. Chapis Polo MD Emergency Provider Active S tart: January 31, 2025 Dr. Ashley Jacobs DO Admit Provider Active Start: January 31, 2025 Dr. Ashley Jacobs DO Other Provider Active Start: January 31, 2025 Dr. Edwin Ellington MD Other Provider Active Start: January 31, 2025 Dr. Elle Lazcano MD Other Provider Active Start : January 31, 2025 Dr. Renard Lopez MD Other Provider Active Start : January 31, 2025 Dr. Roberto Muro MD Other Provider Active St art: January 31, 2025 Dr. Flores Glover MD Other Provider Active Star t: January 31, 2025 Dr. Ashwin Pulido MD Other Provider Active Sta rt: January 31, 2025 Dr. Tato Rincon MD Other Provider Active Star t: January 31, 2025 Dr. Sergo Perez MD Attending Provider Active S tart: January 31, 2025 Dr. Sergo Perez MD Other Provider Active Start : January 31, 2025 Dr. Ashley Joel DO Other Provider Active Sta rt: January 31, 2025 Dr. Kimberley Snyder MD Other Provider Active Star t: January 31, 2025 Dr. Karl Vo MD Other Provider Active St art: January 31, 2025 Dr. Denise Haywood MD Other Provider Active Start: January 31, 2025 Dr. dAam Crow MD Other Provider Active Start : January 31, 2025 Dr. Josep Ashford MD Other Provider Active S tart: January 31, 2025 Dr. Timoteo Alcantar MD Other Provider Active Start: January 31, 2025 Hussein Gramajo EPITAXIAL REACTOR OPERATOR, EPITAXIAL REACTOR OPERATOR-C Other Provider Active Start : January 31, 2025 Dyana Alvarez PA, PA Other Provider Active Start: January 31, 2025 ELO Cervantes Other Provider Active Start: January 31, 2025 Dr. Davy Lanier DO Other Provider Active Start: January 31, 2025 Team Status: Inactive Member Role/Relationship Status Dates Dr. Chloe Cheema MD Primary Care Provider Active Start: January 31, 2025 End: February 01, 2025 Dr. Chapis Polo MD Emergency Provider Active S tart: January 31, 2025 End: February 01, 2025 Dr. Ashley Jacobs DO Admit Provider Active Start: January 31, 2025 End: February 01, 2025 Dr. Ashley Jacobs DO Other Provider Active Start: January 31, 2025 End: February 01, 2025 Dr. Edwin Ellington MD Other Provider Active Start: January 31, 2025 End: February 01, 2025 Dr. Elle Lazcano MD Other Provider Active Start : January 31, 2025 End: February 01, 2025 Dr. Renard Lopez MD Other Provider Active Start : January 31, 2025 End: February 01, 2025 Dr. Roberto Muro MD Other Provider Active St art: January 31, 2025 End: February 01, 2025 Dr. Flores Glover MD Other Provider Active Star t: January 31, 2025 End: February 01, 2025 Dr. Ashwin Pulido MD Other Provider Active Sta rt: January 31, 2025 End: February 01, 2025 Dr. Tato Rincon MD Other Provider Active Star t: January 31, 2025 End: February 01, 2025 Dr. Sergo Perez MD Other Provider Active Start : January 31, 2025 End: February 01, 2025 Dr. Ashley Joel DO Other Provider Active Sta rt: January 31, 2025 End: February 01, 2025 Dr. Kimberley Snyder MD Other Provider Active Star t: January 31, 2025 End: February 01, 2025 Dr. Karl Vo MD Other Provider Active St art: January 31, 2025 End: February 01, 2025 Dr. Denise Haywood MD Other Provider Active Start: January 31, 2025 End: February 01, 2025 Dr. Adam Crow MD Other Provider Active Start : January 31, 2025 End: February 01, 2025 Dr. Josep Ashford MD Other Provider Active S tart: January 31, 2025 End: February 01, 2025 Dr. Timoteo Alcantar MD Other Provider Active Start: January 31, 2025 End: February 01, 2025 Hussein Gramajo EPITAXIAL REACTOR OPERATOR, EPITAXIAL REACTOR OPERATOR-C Other Provider Active Start : January 31, 2025 End: February 01, 2025 Dyana GASCA, PA Other Provider Active Start: January 31, 2025 End: February 01, 2025 ELO Cervantes Other Provider Active Start: January 31, 2025 End: February 01, 2025 Dr. Librado Bah , DO Attending Provider Active Start: January 31, 2025 End: February 01, 2025 Dr. Davy Lanier , DO Other Provider Active Start: January 31, 2025 End: February 01, 2025 Last Waxer Relationship Specialty Start Date End Date Chloe Cheema MD [address] [place], [place] [address] PCP - General Family Medicine 04/13/12 Susan Kerr APRN.CENTER MEDICAL DIRECTOR [address] [place] [address] Stair Builder Family [facility] 05/27/24 Beverley Casas AIRPLANE FLIGHT ATTENDANT.CENTER MEDICAL DIRECTOR [address] [place] [address] Stair Builder Family Medicine 05/27/24 Ratna Pimentel, RN [address] [place] [address] Primary Care Manager Proposal 02/03/25 Last Waxer Relationship Specialty Start Date End Date Chloe Cheema MD [address] [place] [address] PCP - General Family Medicine 04/13/12 Susan Kerr APRN.CENTER MEDICAL DIRECTOR [address] [place] [address] Stair Builder Family [facility] 05/27/24 Beverley Casas AIRPLANE FLIGHT ATTENDANT.CENTER MEDICAL DIRECTOR [address] [place] [address] Stair Builder Family Medicine 05/27/24 Ratna Pimentel, RN [address] [place] [address] Primary Care Manager Proposal 02/03/25 Team Status: Active Member Role/Relationship Status Dates Dr. Chloe Cheema MD Primary Care Provider Active Start: February 01, 2025 Dr. Chapis Polo MD Emergency Provider Active S tart: February 01, 2025 Dr. Ashley Jacobs , Admit Provider Active Start: February 01, 2025 Dr. Ashley Jacobs DO Other Provider Active Start: February 01, 2025 Dr. Edwin Ellington MD Other Provider Active Start: February 01, 2025 Dr. Elle Lazcano MD Other Provider Active Start : February 01, 2025 Dr. Renard Lopez MD Other Provider Active Start : February 01, 2025 Dr. Roberto Muro MD Other Provider Active St art: February 01, 2025 Dr. Flores Glover MD Other Provider Active Star t: February 01, 2025 Dr. Ashwin Pulido MD Other Provider Active Sta rt: February 01, 2025 Dr. Tato Rincon MD Other Provider Active Star t: February 01, 2025 Dr. Sergo Perez MD Other Provider Active Start : February 01, 2025 Dr. Ashley Joel DO Other Provider Active Sta rt: February 01, 2025 Dr. Kimberley Snyder MD Other Provider Active Star t: February 01, 2025 Dr. Karl Vo MD Other Provider Active St art: February 01, 2025 Dr. Denise Haywood MD Other Provider Active Start: February 01, 2025 Dr. Adam Crow MD Other Provider Active Start : February 01, 2025 Dr. Josep Ashford MD Other Provider Active S tart: February 01, 2025 Dr. Timoteo Alcantar MD Other Provider Active Start: February 01, 2025 Hussein Gramajo EPITAXIAL REACTOR OPERATOR, EPITAXIAL REACTOR OPERATOR-C Other Provider Active Start : February 01, 2025 yDana Alvarez PA, PA Other Provider Active Start: February 01, 2025 ELO Cervantes Other Provider Active Start: February 01, 2025 Dr. Librado Bah , DO Attending Provider Active Start: February 01, 2025 Dr. Librado Bah , DO Other Provider Active S tart: February 01, 2025 Dr. Davy Lanier , DO Other Provider Active Start: February 01, 2025 Team Status: Inactive Member Role/Relationship Status Dates Dr. Chloe Cheema MD Primary Care Provider Active Start: February 12, 2025 End: February 12, 2025 Dr. Chloe Cheema MD Referring Provider Active Start: February 12, 2025 End: February 12, 2025 Jodi Soto Attending Provider Active Start: [facility] 2024 End: February 12, 2025 Last Waxer Relationship Specialty Start Date End Date Chloe Cheema MD [address] [place] [address] PCP - General Family Medicine 04/13/12 Susan Kerr, AIRPLANE FLIGHT ATTENDANT.CENTER MEDICAL DIRECTOR [address] [place] [address] Stair Builder Family [facility] 05/27/24 Beverley Casas AIRPLANE FLIGHT ATTENDANT.CENTER MEDICAL DIRECTOR [address] [place] [address] Stair Builder Family [facility] 05/27/24 Ratna Pimentel, ERASMO [address] [place] [address] Primary Care Manager Proposal 02/03/25 Last Waxer Relationship Specialty Start Date End Date Chloe Cheema MD [address] [place] [address] PCP - General Family Medicine 04/13/12 Susan Kerr, AIRPLANE FLIGHT ATTENDANT.CENTER MEDICAL DIRECTOR [address] [place] [address] Stair Builder Family Medicine 05/27/24 Beverley Casas AIRPLANE FLIGHT ATTENDANT.CENTER MEDICAL DIRECTOR [address] [place] [address] [facility] 05/27/24 Ratna Pimentel, ERASMO [address] [place], [place] [id number] Primary Care Manager Proposal 02/03/25 Last Waxer Relationship Specialty Start Date End Date Chloe Cheema MD [address] [place] [address] PCP - General Family Medicine 04/13/12 Susan Kerr, AIRPLANE FLIGHT ATTENDANT.CENTER MEDICAL DIRECTOR [address] [place] [address] [facility] 05/27/24 Beverley Casas, AIRPLANE FLIGHT ATTENDANT.CENTER MEDICAL DIRECTOR [address] [place] [address] [facility] 05/27/24 Ratna Pimentel, ERASMO [address] [place] [address] Primary Care Manager Proposal 02/03/25 Team Status: Active Member Role/Relationship Status Dates Dr. Hari Vega MD Attending Provider Active Start: January 31, 2025 Dr. Ashley Jacobs DO Referring Provider Active Start: January 31, 2025 Team Status: Active Member Role/Relationship Status Dates Dr. Chloe Cheema MD Primary Care Provider Active Start: February 01, 2025 Dr. Chapis Polo MD Emergency Provider Active S tart: February 01, 2025 Dr. Ashley Jacobs DO Admit Provider Active Start: February 01, 2025 Dr. Ashley Jacobs DO Other Provider Active Start: February 01, 2025 Dr. Edwin Ellington MD Other Provider Active Start: February 01, 2025 Dr. Elle Lazcano MD Other Provider Active Start : February 01, 2025 Dr. Renard Lopez MD Other Provider Active Start : February 01, 2025 Dr. Roberto Muro MD Other Provider Active St art: February 01, 2025 Dr. Flores Glover MD Other Provider Active Star t: February 01, 2025 Dr. Ashwin Pulido MD Other Provider Active Sta rt: February 01, 2025 Dr. Tato Rincon MD Other Provider Active Star t: February 01, 2025 Dr. Sergo Perez MD Other Provider Active Start : February 01, 2025 Dr. Ashley Joel DO Other Provider Active Sta rt: February 01, 2025 Dr. Kimberley Snyder MD Other Provider Active Star t: February 01, 2025 Dr. Karl Vo MD Other Provider Active St art: February 01, 2025 Dr. Denise Haywood MD Other Provider Active Start: February 01, 2025 Dr. Adam Crow MD Other Provider Active Start : February 01, 2025 Dr. Josep Ashford MD Other Provider Active S tart: February 01, 2025 Dr. Timoteo Alcantar MD Other Provider Active Start: February 01, 2025 Hussein Gramajo EPITAXIAL REACTOR OPERATOR, EPITAXIAL REACTOR OPERATOR-C Other Provider Active Start : February 01, 2025 Dyana Alvarez PA, PA Other Provider Active Start: February 01, 2025 ELO Cervantes Other Provider Active Start: February 01, 2025 Dr. Librado Bah DO Attending Provider Active Start: February 01, 2025 Dr. Librado Bah DO Other Provider Active S tart: February 01, 2025 Dr. Davy Lanier DO Other Provider Active Start: February 01, 2025 Team Status: Inactive Member Role/Relationship Status Dates Dr. Chloe Cheema MD Primary Care Provider Active Start: February 12, 2025 End: February 12, 2025 Dr. Chloe Cheema MD Referring Provider Active Start: February 12, 2025 End: February 12, 2025 Jodi Soto Attending Provider Active Start: [facility] 2024 End: February 12, 2025 Team Status: Active Member Role/Relationship Status Dates Dr. Chloe Cheema MD Primary Care Provider Active Start: February 19, 2025 Dr. Chapis Polo MD Emergency Provider Active S tart: February 19, 2025 Dr. Karl Vo MD Attending Provider Active Start: February 19, 2025 Team Status: Active Member Role/Relationship Status Dates Dr. Chloe Cheema MD Primary Care Provider Active Start: February 19, 2025 Dr. Chapis Polo MD Emergency Provider Active S tart: February 19, 2025 Dr. Kathleen Treviño MD Admit Provider Active Star t: February 19, 2025 Dr. Kathleen Treviño MD Attending Provider Active Start: February 19, 2025 Goals (unrecognized section and content) Goals may [...] BE BASED ON THE PRIMARY CLINICAL RECORDS. [facility]. provides no warranty or guarantee of the accuracy or completeness of information in this document.
[2025-02-20 02:15] VITALS: BP 152/79; PULSE 76; RESP 15; TEMP 36.1; O2SAT 95
[2025-02-20 03:05] VITALS: BMI 37.3
[2025-02-20 05:55] LABS: Hematocrit 39.3 % (40-54); Hemoglobin 13.7 g/dL (13.0-16.5); Immature Granulocytes Count 0.010 X10^3/uL (0.0-0.0); Mean Corp Hgb Conc 34.9 g/dL (32-36); Mean Corpuscular Volume 84.3 fL (80-94); Mean Platelet Vol. 10.8 fl (6.2-12.0); NRBC Flagged by Analyzer 0 % (0-5); Platelet Count 143 K/mm3 (150-450); RBC Distribution Width CV 12.9 % (11.6-14.6); RBC Distribution Width SD 39.4 fl (35.1-43.9); Red Blood Count 4.66 M/mm3 (4.6-6.2); White Blood Count 5.3 K/mm3 (4.4-11.0)
[2025-02-20 06:21] LABS: Anion Gap 10 (5-15); BUN 14 mg/dL (4-19); BUN/Creat Ratio 14.3 RATIO (10-20); Calcium,Total 8.6 mg/dL (7.6-11.0); Carbon Dioxide 25.2 mmol/L (21.0-32.0); Chloride 105 mmol/L (98-108); Estimated Creatinine Clearance 111.09 ml/min (50-250); Glucose 103 mg/dL (70-99); Potassium 3.7 mmol/L (3.3-5.1)
[2025-02-20 08:10] VITALS: O2SAT 95
--- NOTE | 2025-02-20 08:16 | PCM.PN.CARD ---
Subjective Subjective Patient denies any recurrence of his dizziness or near syncope since admission. Telemetry has shown primarily a sensed ventricular paced rhythm. However there were several episodes where he had a PVC that reset the sinus node he was a paced V paced for for 5 beats and then went back to his a sensed V paced rate. This is consistent with VA conduction of his PVC. Objective Data Vital Signs: Vital Signs Temp Pulse Resp BP Pulse Ox O2 Del Method FiO2 97 F L 76 15 152/79 H 95 Room Air 21 02/20/25 02:15 02/20/25 02:15 02/20/25 02:15 02/20/25 02:15 02/20/25 02:15 02/20/25 02:15 02/20/25 02:27 Oxygen Delivery Method Room Air Weight: 315 lb 4.176 oz Body Mass Index (BMI) 37.3 Lab / Micro Data Attestation: I reviewed the patient's lab results. 02/20/25 05:34 02/20/25 05:34 Labs: Laboratory Results - last 24 hr 02/19/25 14:17: WBC 6.1, RBC 5.25, Hgb 15.4, Hct 43.3, MCV 82.5, MCH 29.3, MCHC 35.6, RDW Std Deviation 38.6, RDW Coeff of Lito 12.8, Plt Count 168, MPV 11.1, Immature Gran % (Auto) 0.200, Neut % (Auto) 74.0 H, Lymph % (Auto) 14.8 L, Mcdonough % (Auto) 9.6, Eos % (Auto) 1.2, Baso % (Auto) 0.2, Absolute Neuts (auto) 4.5, Absolute Lymphs (auto) 0.90, Nucleated RBC % 0, Sodium 138, Potassium 3.7, Chloride 103, Carbon Dioxide 23.2, Anion Gap 12, BUN 13, Creatinine 0.95, Estim Creat Clear Calc 119.34, Est GFR (MDRD) Non-Af 87, BUN/Creatinine Ratio 13.3, Glucose 131 H, Calcium 9.2, Phosphorus 3.0, Magnesium 2.3 H, Troponin T High Sens 23 H D, TSH 1.110 02/19/25 16:10: Troponin T Hi Sens 2 Hr 22 02/19/25 17:57: Troponin T Hi Sens 4Hr 27 H 02/20/25 05:34: WBC 5.3, RBC 4.66, Hgb 13.7, Hct 39.3 L, MCV 84.3, MCH 29.4, MCHC 34.9, RDW Std Deviation 39.4, RDW Coeff of Lito 12.9, Plt Count 143 L, MPV 10.8, Immature Gran % (Auto) 0.200, Neut % (Auto) 65.1, Lymph % (Auto) 19.7, Mcdonough % (Auto) 12.7 H, Eos % (Auto) 1.5, Baso % (Auto) 0.8, Absolute Neuts (auto) 3.4, Absolute Lymphs (auto) 1.04, Nucleated RBC % 0, Sodium 140, Potassium 3.7, Chloride 105, Carbon Dioxide 25.2, Anion Gap 10, BUN 14, Creatinine 1.01, Estim Creat Clear Calc 111.09, Est GFR (MDRD) Non-Af 82, BUN/Creatinine Ratio 14.3, Glucose 103 H, Calcium 8.6 Rhythm Strip Rhythm Strip: Pacer pacing V tracking sinus rate Rate: 60 Ectopy: PVC(s) Cardiology Labs/Tests 02/19/25 14:17: WBC 6.1, RBC 5.25, Hgb 15.4, Hct 43.3, MCV 82.5, MCH 29.3, MCHC 35.6, Plt Count 168, MPV 11.1, Immature Gran % (Auto) 0.200, Neut % (Auto) 74.0 H, Lymph % (Auto) 14.8 L, Mcdonough % (Auto) 9.6, Eos % (Auto) 1.2, Baso % (Auto) 0.2, Absolute Neuts (auto) 4.5, Nucleated RBC % 0, Sodium 138, Potassium 3.7, Chloride 103, Carbon Dioxide 23.2, Anion Gap 12, BUN 13, Creatinine 0.95, Est GFR (MDRD) Non-Af 87, BUN/Creatinine Ratio 13.3, Glucose 131 H, Calcium 9.2, Phosphorus 3.0, Magnesium 2.3 H 02/20/25 05:34: WBC 5.3, RBC 4.66, Hgb 13.7, Hct 39.3 L, MCV 84.3, MCH 29.4, MCHC 34.9, Plt Count 143 L, MPV 10.8, Immature Gran % (Auto) 0.200, Neut % (Auto) 65.1, Lymph % (Auto) 19.7, Mcdonough % (Auto) 12.7 H, Eos % (Auto) 1.5, Baso % (Auto) 0.8, Absolute Neuts (auto) 3.4, Nucleated RBC % 0, Sodium 140, Potassium 3.7, Chloride 105, Carbon Dioxide 25.2, Anion Gap 10, BUN 14, Creatinine 1.01, Est GFR (MDRD) Non-Af 82, BUN/Creatinine Ratio 14.3, Glucose 103 H, Calcium 8.6 Rhythm: EKG: ECHO: Stress Test: Cardiac Cath: PCI: CT Surgery: Holter monitor: EPS: PPM: CXR: Chest CT Scan: Radiography Diagnostic Testing: Radiology Impression Chest X-Ray 02/19/25 14:38 IMPRESSION: No acute abnormality Reading Location: [facility] Physical Exam Const alert and oriented x3 HEENT normocephalic Eyes EOMs intact bilaterally Neck no JVD Chest Chest Narrative: Patient insertion site well-healed. Chest: left pectoral incision Resp normal respiratory effort and clear to auscultation bilaterally Cardio Rate: regular rate Rhythm: regular rhythm Heart Sounds: S1 normal and S2 normal; Negative for click, gallop or murmur Extremity no pedal edema Neuro Neuro Narrative: Alert and oriented x 3 Psych mental status grossly normal Assessment & Plan Assessment/Plan (1) V tach: PLAN: Patient's had no recurrence of what appeared to be ventricular tachycardia. Telemetry shows definitive VA conduction of his PVC which raises the possibility that this is a macro circuit reentrant tachycardia. The patient has intermittent third-degree AV block. And this potentially could set up a situation where VA conduction could create a macro circuit ventricular tachycardia. The treatment is to further block the AV node and beta-jacob was instituted yesterday. The patient developed his symptoms only when he has been exerting for a while and walking significant distances. After his second dose of metoprolol this morning he is to be ambulated in the halls and if he tolerates this without incident he could be able to be discharged to home later today. The patient ambulated for 5 minutes faster than he usually wants in his home environment and for a longer period of time with no recurrence of his symptoms. The patient's telemetry did not show any evidence of ventricular tachycardia. From a cardiovascular standpoint the patient can be discharged to home. I went over in detail with him management utilizing his metoprolol succinate 50 mg twice daily and not taking any more amlodipine. He is to take his blood pressure in his home environment and call into the office over the next 2 weeks. If the patient continues to have VT through this macro circuit reentrant would have to consider AV maria a ablation after evaluation with electrophysiology. (2) Presence of cardiac pacemaker: PLAN: Patient's pacer was placed January 31, 2025. Pacer checks have been normal up to this point. He did have some manipulations to try to prevent reentrant tachycardias these may need to be adjusted again depending on the results of his ambulation on beta-jacob therapy. (3) AV block, 3rd degree: PLAN: Patient had intermittent third-degree AV block associated with symptoms that was the reason for his pacer implantation January 31, 2025. PLAN: Plan 1. Continue metoprolol succinate 50 mg twice daily. Blood pressure is tolerating well today. 2. Discontinue amlodipine given the addition of metoprolol. Continue losartan. 3. Check limited echo. Echo shows normal LV function no change from January 31, 2025. 4. Ambulate in the halls to try and precipitate situations that caused his symptoms and his home environment. 5. The patient is tolerating the medical therapy and his echo remains normal LV function and he has no symptoms the patient could be discharged to home later today. 6. After discharge the patient should follow-up in the [facility] office in 7 to 10 days. The patient already has an appointment for pacer device check in 4 weeks. Charges/Coding Visit Charges Inpatient E&M: 86814 Subs Hosp L2
[2025-02-20 10:12] VITALS: BP 182/83; PULSE 69; RESP 16; TEMP 36.8; O2SAT 97
[2025-02-20 10:16] VITALS: PULSE 69
[2025-02-20] MEDS: Senna/Docusate Sodium 1 Tablet 2 TABLET PO (10:16)
[2025-02-20] MEDS: Metoprolol(XL)Succ 50 MG Tablet PO (10:16)
[2025-02-20] MEDS: Potassium Chloride Oral Tablet 20 MEQ PO (10:17)
[2025-02-20 11:12] VITALS: BP 168/86
[2025-02-20] MEDS: Polyethylene Glycol 3350 17 GM PACKET PO (14:33)
[2025-02-20 14:35] VITALS: BP 160/81; PULSE 62; RESP 16; TEMP 36.9; O2SAT 98
--- NOTE | 2025-02-20 14:54 | DCINST_ITS ---
Discharge Instructions DC O2, CPAP, BIPAP needs Home O2 Discharge instructions: No Dressing / Incision Discharge Activity: Return to Normal Activity Weight Bearing Status: Full weight bearing Follow Up Care Test Results: Test results from this visit will be discussed in further detail at your follow- up appointment, if applicable. Discharge Plan Admission Admit Date/Time: 02/19/25 16:18 Primary Reason for Your Visit: V-Tach Attending Provider: Librado Bah Primary Care Provider: Jagjit Myres Consulting Providers: Karl Vo; Kathleen Treviño Discharge Orders/Prescriptions Prescriptions: New metoprolol succinate 50 mg Tablet Extended Release 24 Hr 50 mg PO BID Qty: 60 0RF Continued tamsulosin 0.4 mg capsule 0.4 mg PO DAILY testosterone 20.25 mg/1.25 gram (1.62 %) gel in metered-dose pump 4 pump transdermal DAILY Patient Comments: APPLY 4 PUMPS DAILY albuterol sulfate 1 INHALER inhaler 1 - 2 puff INHALATION Q6H PRN (Reason: Asthma) esomeprazole magnesium 40 mg capsule,delayed release(DR/EC) 40 mg PO BID Patient Comments: PT ONLY TAKES ONCE A DAY losartan 100 mg tablet 100 mg PO DAILY potassium chloride 10 mEq tablet extended release 20 meq PO DAILY finasteride 5 mg tablet 5 mg PO DAILY multivitamin [Daily Multi-Vitamin] Tablet 1 tab PO DAILY oxycodone-acetaminophen 5-325 mg tablet 1 tab PO DAILY PRN (Reason: pain) atomoxetine 40 mg capsule 100 mg PO DAILY Wegovy 0.25 mg/0.5 mL pen injector 0.25 mg subcut QWEEK Qty: 2 0RF Rx Instructions: administer weeks 1 through 4 of therapy Discontinued amlodipine 5 mg tablet 10 mg PO DAILY Qty: 90 3RF Referrals / Follow Up: Karl Vo MD [Med Staff - Active Staff] - See Referral Note (In 10 days- call for an appointment) Jagjit Myers MD [Primary Care Provider] - Disposition Disposition (needs filled in before D/C Order can be placed): Home, Self Care
--- NOTE | 2025-02-20 15:08 | DS.PCM_ITS ---
Providers Date of Admission: 02/19/25 Date of Discharge: 02/20/25 Primary Care Physician: Dr. Jagjit Myers MD Consultations 02/19/25 17:52 Consult: Cardiology Routine Consulting Provider: Karl Vo Reason for Consult: Syncope and V. tach EMERGENT Consult: No MD Notified: Yes Date Notified: 02/19/25 Time Notified: 16:38 Method of Notification: ED Physician Initiated Reason For Visit: RUNS OF SYMPTOMATIC V. TACH Diagnosis Discharge Diagnosis (1) V tach: Status: Acute Code(s): I47.20 - Ventricular tachycardia, unspecified (2) Presence of cardiac pacemaker: Status: Chronic Code(s): Z95.0 - Presence of cardiac pacemaker (3) AV block, 3rd degree: Status: Chronic Code(s): I44.2 - Atrioventricular block, complete Plan 1. Paroxysmal ventricular tachycardia #2 essential hypertension #3 coronary artery disease #4 obstructive sleep apnea Medications at Discharge Home Medications albuterol sulfate 90 mcg/actuation aerosol inhaler 1 - 2 puff inhalation Q6H PRN Asthma 07/08/19 testosterone 4 pump transdermal DAILY low testosterone 11/23/21 tamsulosin 0.4 mg capsule 0.4 mg PO DAILY prostate 04/29/22 esomeprazole magnesium 40 mg capsule,delayed release 40 mg PO BID reflux 10/28/24 finasteride 5 mg tablet 5 mg PO DAILY prostate 10/28/24 losartan 100 mg tablet 100 mg PO DAILY blood pressure 10/28/24 multivitamin (Daily Multi-Vitamin tablet) 1 tab PO DAILY vitamin 10/28/24 oxycodone-acetaminophen 5 mg-325 mg tablet 1 tab PO DAILY PRN pain 10/28/24 potassium chloride 10 mEq tablet,extended release 20 meq PO DAILY supplement 10/28/24 atomoxetine 40 mg capsule 100 mg PO DAILY ADD 11/28/24 semaglutide (weight loss) 0.25 mg/0.5 mL subcutaneous pen injector (Wegovy) 0.25 mg (0.5 mL) subcut QWEEK weight loss #2 mL 12/02/24 metoprolol succinate 50 mg tablet,extended release 24 hr 50 mg PO BID #60 tabs 02/20/25 Hospital Course Operations None Procedures 2-D Echocardiogram Summary of Care Provided Minutes Spent on Discharge: 31 Hospital Course: This 69-year-old white male was seen in the emergency room at [facility] due to abnormal findings of his pacemaker after he was called by his rubber goods inspector tester. It appeared that the patient had some runs of ventricular tachycardia-he described episodes of feeling like he had a bubble in his chest, patient had no shortness of breath or palpitations. Labs obtained in the emergency room revealed his chemistry panel was unremarkable, CBC was unremarkable, and his troponin was slightly elevated at 23. Chest x-ray was unremarkable. Patient was admitted to PCU and monitored on telemetry, patient did not have any episodes of ventricular tachycardia, patient was placed on a beta-jacob and cardiology saw the patient in consultation and felt that the patient had a reentry ventricular tachycardia which would be helped by use of a beta-jacob. On 02/20/2025, patient was seen and examined: On examination he appeared in good health and spirits. Vital signs as documented. Skin warm and dry and without overt rashes. Neck without JVD, neck was supple, trachea midline, thyroid was normal. Lungs clear bilaterally, normal air movement was noted. Heart exam notable for regular rhythm, normal sounds and absence of murmurs, rubs or gallops. Abdomen unremarkable and without evidence of organomegaly, masses, or abdominal aortic enlargement. Bowel sounds are present, abdomen is not distended. Extremities nonedematous, no cyanosis was noted, no clubbing was noted. Neuro: Cranial nerves II through XII are grossly intact, no focal motor deficits were noted, sensation to light touch and pinprick intact, motor exam 5/5 throughout. Psych: Patient is alert and oriented x3, he does not appear anxious or depressed, he does not appear agitated. Patient had an echocardiogram performed which was unremarkable. Patient was discharged home in stable condition on 02/20/25 Weight / BMI Weight Weight: 143 kg Body Mass Index (BMI) 37.3 ABG / Lab / Microbiology Data 02/20/25 05:34 02/20/25 05:34 Laboratory: Laboratory Results - last 24 hr 02/19/25 14:17: Sodium 138, Potassium 3.7, Chloride 103, Carbon Dioxide 23.2, Anion Gap 12, BUN 13, Creatinine 0.95, Estim Creat Clear Calc 119.34, Est GFR (MDRD) Non-Af 87, BUN/Creatinine Ratio 13.3, Glucose 131 H, Calcium 9.2, Phosphorus 3.0, Magnesium 2.3 H, Troponin T High Sens 23 H D, TSH 1.110 02/19/25 16:10: Troponin T Hi Sens 2 Hr 22 02/19/25 17:57: Troponin T Hi Sens 4Hr 27 H 02/20/25 05:34: WBC 5.3, RBC 4.66, Hgb 13.7, Hct 39.3 L, MCV 84.3, MCH 29.4, MCHC 34.9, RDW Std Deviation 39.4, RDW Coeff of Lito 12.9, Plt Count 143 L, MPV 10.8, Immature Gran % (Auto) 0.200, Neut % (Auto) 65.1, Lymph % (Auto) 19.7, M brigette % (Auto) 12.7 H, Eos % (Auto) 1.5, Baso % (Auto) 0.8, Absolute Neuts (auto) 3.4, Absolute Lymphs (auto) 1.04, Nucleated RBC % 0, Sodium 140, Potassium 3.7, Chloride 105, Carbon Dioxide 25.2, Anion Gap 10, BUN 14, Creatinine 1.01, Estim Creat Clear Calc 111.09, Est GFR (MDRD) Non-Af 82, BUN/Creatinine Ratio 14.3, G lucose 103 H, Calcium 8.6 Radiography Diagnostic Testing: Radiology Impression Chest X-Ray 02/19/25 14:38 IMPRESSION: No acute abnormality Reading Location: [facility] Echocardiogram 02/19/25 17:52 Interpretation Summary The estimated ejection fraction is 60 %. The left atrium is mildly enlarged. Ordering Physician: Kathleen Treviño Referring Physician: Jagjit Myers Performed By: Imelda Lopez, LESLYE, RVT D/C Instructions Weight Bearing Status: Full weight bearing DC O2, CPAP, BIPAP Needs Home O2 Discharge instructions: No Meaningful Use Info Meaningful Use Meaningful Use Diagnoses (Choose all that apply): None applicable Discharge Plan Admission Admit Date/Time: 02/19/25 16:18 Primary Reason for Your Visit: V-Tach Attending Provider: Librado Bah Primary Care Provider: Jagjit Myers Consulting Providers: Karl Vo; Kathleen Treviño Discharge Orders/Prescriptions Prescriptions: New metoprolol succinate 50 mg Tablet Extended Release 24 Hr 50 mg PO BID Qty: 60 0RF Continued tamsulosin 0.4 mg capsule 0.4 mg PO DAILY testosterone 20.25 mg/1.25 gram (1.62 %) gel in metered-dose pump 4 pump transdermal DAILY Patient Comments: APPLY 4 PUMPS DAILY albuterol sulfate 1 INHALER inhaler 1 - 2 puff INHALATION Q6H PRN (Reason: Asthma) esomeprazole magnesium 40 mg capsule,delayed release(DR/EC) 40 mg PO BID Patient Comments: PT ONLY TAKES ONCE A DAY losartan 100 mg tablet 100 mg PO DAILY potassium chloride 10 mEq tablet extended release 20 meq PO DAILY finasteride 5 mg tablet 5 mg PO DAILY multivitamin [Daily Multi-Vitamin] Tablet 1 tab PO DAILY oxycodone-acetaminophen 5-325 mg tablet 1 tab PO DAILY PRN (Reason: pain) atomoxetine 40 mg capsule 100 mg PO DAILY Wegovy 0.25 mg/0.5 mL pen injector 0.25 mg subcut QWEEK Qty: 2 0RF Rx Instructions: administer weeks 1 through 4 of therapy Discontinued amlodipine 5 mg tablet 10 mg PO DAILY Qty: 90 3RF Referrals / Follow Up: Karl Vo MD [Med Staff - Active Staff] - See Referral Note (In 10 days- call for an appointment) Jagjit Myers MD [Primary Care Provider] - Disposition Disposition (needs filled in before D/C Order can be placed): Home, Self Care Charges/Coding Visit Charges Inpatient E&M: 12604 Disch Hosp >30min
--- NOTE | 2025-02-20 15:45 | CASEMGMT ---
ERASMO CAT chart review: Patient was admitted 01/30-02/01/25 for 2nd degree AV block and had pacer placed. See assessment from 01/31/25. Patient was discharge to home with family support and follow-up plans in place. Patient returned to [facility] ED on 02/19/25 after being advised to come to ED by bus mechanic for abnormal on his pacer and was admitted for runs of symptomatic v. tach. ERASMO CAT in to discuss readmission and discharge planning with patient. Patient states he was taking medications as prescribed and attending all of his follow-up appts. Patient has order for discharge. Patient denies needs or help at discharge, independent in room. Patient had no further needs or concerns. Patient had no further questions.
== END 2025-02-20 16:24 | disposition home or self-care (01) | DRG 309 ==
LOC: ED 16:01 → PCU 17:03
PROVIDERS: Admitting Provider Internal Medicine; Emergency Provider Student in an Organized Health Care Education/Training Program; PCP Family Medicine; Visit Provider Internal Medicine
DX: I47.20 Ventricular tachycardia, unspecified (principal); N13.8 Other obstructive and reflux uropathy; I44.2 Atrioventricular block, complete; I77.819 Aortic ectasia, unspecified site; I10 Essential (primary) hypertension; G47.33 Obstructive sleep apnea (adult) (pediatric); E78.00 Pure hypercholesterolemia, unspecified; I25.10 Atherosclerotic heart disease of native coronary artery without angina pectoris; Z79.899 Other long term (current) drug therapy; N40.1 Benign prostatic hyperplasia with lower urinary tract symptoms; Z95.0 Presence of cardiac pacemaker; Z95.5 Presence of coronary angioplasty implant and graft; Z86.711 Personal history of pulmonary embolism; Z87.891 Personal history of nicotine dependence
CPT/HCPCS: 36415; 71046; 80048; 83735; 84100; 84443; 84484; 85025; 93005; 93308; 94660; 99285; Q9957; A4216

== ENCOUNTER → 2025-04-17 | Outpatient (CLI) | payer MEDICARE, BC, SELFPAY ==
--- NOTE | 2025-04-17 10:40 | RAD_ITS ---
PROCEDURE: RAD/Chest PA and Lateral
== END | disposition home or self-care (01) ==
LOC: RAD 10:39
PROVIDERS: PCP Family Medicine; Referring Provider Physician Assistant Medical; Visit Provider Physician Assistant Medical
DX: R06.09 Other forms of dyspnea (principal)
CPT/HCPCS: 71046

== ENCOUNTER → 2025-04-29 | Outpatient (CLI) | payer MEDICARE, BC, SELFPAY ==
--- NOTE | 2025-04-30 09:26 | CPS ---
Patients Pulmonary Function Billing corrected today, Batch #[id number]. Added DLCO testing that was performed and eliminated the Spirometry with Flow Volume Loops that was added in error.
== END | disposition home or self-care (01) ==
PROVIDERS: PCP Family Medicine; Referring Provider Physician Assistant Medical; Visit Provider Physician Assistant Medical
DX: R06.09 Other forms of dyspnea (principal)
CPT/HCPCS: 94010; 94060; 94726; 94729

== ENCOUNTER 2025-06-09 13:39 | Inpatient (IN) | payer MEDICARE, BC, SELFPAY ==
[2025-06-09] VITALS (11 sets, daily range): BP systolic 143–164; BP diastolic 64–78; PULSE 69–130; RESP 15–23; TEMP 36.7–37.2; O2SAT 96–100
--- NOTE | 2025-06-09 13:43 | EKG12_ITS ---
Test Reason : Blood Pressure : */* mmHG Vent. Rate : 68 BPM Atrial Rate : 68 BPM P-R Int : 180 ms QRS Dur : 170 ms QT Int : 480 ms P-R-T Axes : 55 -87 126 degrees QTcB Int : 510 ms Atrial-sensed ventricular-paced rhythm Abnormal ECG Confirmed by Shashi Lui ([id number]), order editor CHARLES CHÁVEZ ([id number]) on 06/10/2025 11:00:30 AM Also confirmed by Shashi Lui ([id number]), order editor CHARLES CHÁVEZ ([id number]) on 06/11/2025 11:10:07 AM Referred By: Confirmed By: Shashi Lui
[2025-06-09 14:09] LABS: Hematocrit 44.7 % (40-54); Hemoglobin 15.3 g/dL (13.0-16.5); Immature Granulocytes Count 0.030 X10^3/uL (0.0-0.0); Mean Corp Hgb Conc 34.2 g/dL (32-36); Mean Corpuscular Volume 84.3 fL (80-94); Mean Platelet Vol. 11.1 fl (6.2-12.0); NRBC Flagged by Analyzer 0 % (0-5); Platelet Count 151 K/mm3 (150-450); RBC Distribution Width CV 13.6 % (11.6-14.6); RBC Distribution Width SD 41.4 fl (35.1-43.9); Red Blood Count 5.30 M/mm3 (4.6-6.2); White Blood Count 7.5 K/mm3 (4.4-11.0)
--- NOTE | 2025-06-09 14:10 | RAD_ITS ---
PROCEDURE: CHEST 1 VIEW (PORTABLE) 06/09/2025 REASON FOR EXAM: Chest pain TECHNIQUE: Frontal view of the chest. COMPARISON: Chest radiograph 04/17/2025 FINDINGS: Reduced lung volumes bilaterally likely secondary to patient body habitus. There is no focal lung consolidation. Linear opacity in the left lung base likely reflecting platelike atelectasis. No pleural effusion or pneumothorax. The cardiomediastinal silhouette is within normal limits. Degenerative changes of the thoracic spine. There is a spinal stimulator. Left-sided dual lead permanent pacemaker. RAD/Chest 1 View (Portable) IMPRESSION: No radiographic evidence of acute cardiopulmonary pathology. Reading Location: [id number]
[2025-06-09 14:32] LABS: Anion Gap 13 (7-18); BUN 15 mg/dL (4-19); BUN/Creat Ratio 14.7 RATIO (10-20); Calcium,Total 8.9 mg/dL (7.6-11.0); Carbon Dioxide 23.2 mmol/L (20.0-29.0); Chloride 103 mmol/L (96-106); Glucose 135 mg/dL (70-99); Potassium 3.5 mmol/L (3.5-5.1); Troponin T High Sensitivity 39 ng/L (<=22)
--- NOTE | 2025-06-09 15:32 | CT_ITS ---
PROCEDURE: CTA CHEST W/WO CONTRAST 06/09/2025 REASON FOR EXAM: CHEST PAIN, HX OF PE, RECENT PACEMAKER SURGERY TECHNIQUE: Procedure Code: [id number] Modality: CT Procedure: CTA CHEST W/WO CONTRAST Multiplanar Sagittal and Coronal images were obtained. CONTRAST: 100 cc of Isovue 370 One or more dose reduction techniques were used (e.g., Automated exposure control, adjustment of the mA and/or kV according to patient size, use of iterative reconstruction technique). COMPARISON: Chest x-ray 06/09/2025, CT abdomen and pelvis 01/30/2025 FINDINGS: Hardware: None. Lymph nodes: No enlarged mediastinal, hilar, or axillary lymph nodes. Heart: Nonenlarged. Trace pericardial effusion. Pacemaker leads present. Thoracic Aorta: No thoracic aortic aneurysm or dissection. Pulmonary Vessels: No evidence of acute pulmonary emboli through the major subsegmental branches. Lungs and Airways: Mild pulmonary vascular congestion. No focal consolidation. Airways are patent. Pleura: No pleural effusion. No pneumothorax. Upper Abdomen: Visualized portions of the upper abdominal viscera are unremarkable. Bones: Degenerative changes of the thoracic spine. Stable sclerotic densities throughout the visualized spine, likely representing bone islands. A spinal stimulator is present. CT/CTA Chest W/WO Contrast IMPRESSION: 1. No evidence of pulmonary embolism. 2. Nonspecific trace pericardial effusion. 3. Mild pulmonary vascular congestion. Reading Location: [facility]
[2025-06-09] MEDS: Orphenadrine 60 MG/2 ML Ampul 30 MG IV (15:37)
--- NOTE | 2025-06-09 15:58 | EX.ED.DYSGE1 ---
HPI History of Present Illness Chief Complaint: Chest Pain Narrative Narrative: Patient is a 69-year-old male with past medical history of nonsustained ventricular tachycardia, hypertension, third-degree AV block, coronary artery disease, thrombocytopenia, history of pulmonary embolism after flying and after PICC line was placed, fibromyalgia, BPH, hypertension who presented to the emergency department with a chief complaint of chest pain. He states that he on Monday of this past week had his pacemaker replaced at [facility] And notes that things are going well until Monday when he went to [employer] and saw a friend who then placed his left shoulder into his chest where the pacemaker was placed and ever since that he has had pain. He states that the pain has been off-and-on and he cannot specifically say what makes this worse. He states that earlier today around 10:30 AM he developed severe chest pain prompting him to come here for further evaluation management he states that this has been constant since then. Patient states that he is currently not anticoagulated as he completed a full course of treatment for his previous PEs. [facility] Medical History HTN (hypertension) NSVT (nonsustained ventricular tachycardia) V tach Presence of cardiac pacemaker Fatigue AV block, 3rd degree Obesity (BMI 30-39.9) Syncope Chest pain Pre-syncope Prostate infection History of cardioversion First degree heart block Dyslipidemia Morbid obesity with BMI of 40.0-44.9, adult Paroxysmal atrial flutter Coronary artery disease Thrombocytopenia Failure of outpatient treatment Complicated urinary tract infection Dyspnea Atrial flutter History of shingles Fatigue History of pulmonary embolism Former tobacco use History of TIA (transient ischemic attack) Chest pain Rectal bleeding Pure hypercholesterolemia Acute pyelonephritis Prostate enlargement UTI (urinary tract infection) Dyspnea on exertion Claudication Fibromyalgia BPH (benign prostatic hyperplasia) GERD (gastroesophageal reflux disease) Essential hypertension Atherosclerotic heart disease of [place] coronary artery without angina pectoris Confusion Unstable angina Abnormal myocardial perfusion study H/O percutaneous transluminal coronary angioplasty Abnormal stress test DEENA (obstructive sleep apnea) Pulmonary embolism Obesity Testosterone deficiency Home Medications ?Medication ?Instructions ?Recorded ?Last Taken ?Type albuterol sulfate 90 mcg/actuation 1 - 2 puff inhalation Q6H PRN 07/08/19 02/19/25 History aerosol inhaler Asthma testosterone 4 pump transdermal DAILY low 11/23/21 06/09/25 History testosterone tamsulosin 0.4 mg capsule 0.4 mg PO DAILY prostate 04/29/22 06/08/25 History finasteride 5 mg tablet 5 mg PO DAILY prostate 10/28/24 06/08/25 History multivitamin (Daily Multi-Vitamin 1 tab PO DAILY vitamin 10/28/24 06/09/25 History tablet) potassium chloride 10 mEq 20 meq PO DAILY supplement 10/28/24 06/09/25 History tablet,extended release aspirin 81 mg tablet 81 mg PO QDAY 02/28/25 06/09/25 History cholecalciferol (vitamin D3) 25 25 mcg PO QDAY 02/28/25 06/09/25 History mcg (1,000 unit) capsule losartan 100 mg tablet 100 mg PO DAILY blood pressure 04/03/25 06/09/25 History amlodipine 10 mg tablet 10 mg PO QHS #90 tabs 04/17/25 06/08/25 Rx esomeprazole magnesium 40 mg 40 mg PO QDAY reflux 04/17/25 06/09/25 History capsule,delayed release carvedilol 3.125 mg tablet (Coreg) 3.125 mg PO BID 30 days #60 tabs 05/01/25 06/09/25 Rx atomoxetine 100 mg capsule 100 mg PO DAILY 06/09/25 06/09/25 History Allergy/AdvReac Type Severity Reaction Status Date / Time Sulfa (Sulfonamide Allergy Unknown Verified 06/09/25 13:42 Antibiotics) Family History Mother CAD (coronary artery disease) Hypertension Hx of CABG Father Hypertension Myocardial infarction Grandfather Myocardial infarction paternal Grandmother Cancer pancreatic CA Grandfather CAD (coronary artery disease) Surgical History Spinal cord stimulator status (~05/2021) History of back surgery History of transurethral resection of prostate History of arthroscopy of right knee History of laparoscopic cholecystectomy Presence of coronary angioplasty implant and graft (~08/2012) Presence of stent in coronary artery (~08/2012) History of left heart catheterization (LHC) History of PTCA (~08/2012) History of tonsillectomy and adenoidectomy History of repair of rotator cuff Social History housing: house Smoking Status: Former smoker quit date: 06/19/94 pack-years: 42 how long ago did patient quit smokin second hand exposure: No alcohol intake: current alcohol intake frequency: holidays/special occasions only Alcohol type: beer substance use type: does not use caffeine: Yes Type: carbonated beverages, coffee and tea what type of physical activity do you participate in: none ROS ROS ED ROS Narrative Constitutional: Denies any fevers, chills, headache Eyes: Denies double vision Cardiovascular: Complains of chest pain as noted above Respiratory: Denies coughing wheezing Abdomen: Denies any abdominal pain : Denies urinary symptoms Neurological: Denies any numbness, weakness, tingling Musculoskeletal: Denies back pain Skin: Denies any rashes or lesions states that he had a pacemaker placed recently as noted above EXAM Physical Exam Narrative Exam Narrative: General: Patient was lying in bed rest comfortably did not appear to be acute distress Head: Atraumatic, normocephalic Eyes: PERRL bilaterally, EOMI bilaterally, no conjunctival injection noted Neck: Soft, supple, trachea midline Cardiovascular: Regular rate and rhythm Respiratory: Clear to auscultation bilaterally Abdomen: Soft, nondistended Extremities: +5/5 strength noted in the bilateral lower extremities Neurological: Patient following commands that he was at [facility] year is 2024 Skin: Warm, dry, surgical incision appears to be well-healing no concern for infection at this point time no area of fluctuance overlying this Const Vital Signs: 06/09/25 13:40 06/09/25 14:40 06/09/25 14:40 Temperature 98.1 F Temperature Source Oral Pulse Rate 71 69 Respiratory Rate 16 23 H Blood Pressure 162/78 H 161/76 H Blood Pressure Mean 106 104 Pulse Ox 99 96 98 Oxygen Delivery Method Room Air Room Air 06/09/25 15:00 06/09/25 15:30 06/09/25 16:00 Temperature Temperature Source Pulse Rate 69 130 H 70 Respiratory Rate 23 H 21 H Blood Pressure 149/72 H 164/64 H Blood Pressure Mean 97 97 Pulse Ox 99 100 Oxygen Delivery Method 06/09/25 17:00 06/09/25 18:00 Temperature Temperature Source Pulse Rate 69 72 Respiratory Rate 17 Blood Pressure 151/70 H 143/67 H Blood Pressure Mean 97 92 Pulse Ox 99 100 Oxygen Delivery Method MDM MDM MDM Narrative Medical decision making narrative: Patient is a 69-year-old male who presented to the emergency department chief complaint of chest pain. On the differential diagnose includes but not limited to ACS, runaway pacemaker, PE, ACS, electrolyte abnormality. Once workup is obtained and reviewed he will be reevaluated. Patient was requesting pain medication which she will be given morphine, Zofran and Norflex. Nursing did notify me that he had to urinate and he was adamant that he stands up and when he did so his heart rate became 130 bpm and he developed severe chest pain with this. Patient CBC reviewed and showed a white blood count was noted to be normal at 7.5, hemostable at 15.3, platelet count 151. Sodium is 130, potassium normal 3.5, creatinine was noted be normal 1.05. Patient's troponin was notably 39 with a delta troponin of 36 this is flat. EKG reviewed showed atrial sensed ventricular paced rhythm with a rate of 60 bpm no Sgarbossa criteria were met proBNP normal at 176. Patient's chest x-ray was reviewed by myself and by radiology showed no acute cardiopulmonary processes. Patient CTA of the chest showed no evidence of pulmonary embolism there is nonspecific trace pericardial effusion with mild pulmonary vascular congestion. I did review the echocardiogram from 02/2025 at that point time he did not have any pericardial effusion. Given the patient has new pericardial effusion with recent procedure, chest pain with heart rate spiking to the 130s when getting up will discuss case with [facility] For transfer. Dr. Vidal will except patient for transfer. Patient notified is agreeable to plan all question concerns answered. Lab Data Labs: Laboratory Results - last 24 hr 06/09/25 06/09/25 13:56 15:48 WBC 7.5 RBC 5.30 Hgb 15.3 Hct 44.7 MCV 84.3 MCH 28.9 MCHC 34.2 RDW Std Deviation 41.4 RDW Coeff of Lito 13.6 Plt Count 151 MPV 11.1 Immature Gran % (Auto) 0.400 Neut % (Auto) 77.8 H Lymph % (Auto) 11.2 L [place] % (Auto) 8.6 Eos % (Auto) 1.7 Baso % (Auto) 0.3 Absolute Neuts (auto) 5.9 Absolute Lymphs (auto) 0.84 Nucleated RBC % 0 Sodium 138 Potassium 3.5 Chloride 103 Carbon Dioxide 23.2 Anion Gap 13 BUN 15 Creatinine 1.05 Est GFR (MDRD) Non-Af 78 BUN/Creatinine Ratio 14.7 Glucose 135 H Calcium 8.9 Troponin T High Sens 39 H D Troponin T Hi Sens 2 Hr 36 H NT pro BNP II 176 Radiography Diagnostic Testing: Clinical Impression(s) from Imaging Studies Chest X-Ray 06/09/25 14:10 IMPRESSION: No radiographic evidence of acute cardiopulmonary pathology. Reading Location: [id number] Chest CTA 06/09/25 15:32 IMPRESSION: 1. No evidence of pulmonary embolism. 2. Nonspecific trace pericardial effusion. 3. Mild pulmonary vascular congestion. Reading [facility] Discharge Plan Triage Chief Complaint: Chest Pain ED Provider: Neeraj Cox Dx/Rx/DC Orders Clinical Impression: Chest pain, Tachycardia, Acute pericardial effusion, Status post placement of cardiac pacemaker Prescriptions: No Action tamsulosin 0.4 mg capsule 0.4 mg PO DAILY testosterone 20.25 mg/1.25 gram (1.62 %) gel in metered-dose pump 4 pump transdermal DAILY Patient Comments: APPLY 4 PUMPS DAILY aspirin 81 mg tablet 81 mg PO QDAY cholecalciferol (vitamin D3) 25 mcg (1,000 unit) capsule 25 mcg PO QDAY amlodipine 10 mg tablet 10 mg PO QHS Qty: 90 3RF carvedilol [Coreg] 3.125 mg tablet 3.125 mg PO BID 30 Days Qty: 60 11RF Rx Instructions: must administer with a meal/food albuterol sulfate 1 INHALER inhaler 1 - 2 puff INHALATION Q6H PRN (Reason: Asthma) potassium chloride 10 mEq tablet extended release 20 meq PO DAILY finasteride 5 mg tablet 5 mg PO DAILY multivitamin [Daily Multi-Vitamin] Tablet 1 tab PO DAILY esomeprazole magnesium 40 mg capsule,delayed release(DR/EC) 40 mg PO QDAY Patient Comments: PT ONLY TAKES ONCE A DAY atomoxetine 100 mg capsule 100 mg PO DAILY losartan 100 mg tablet 100 mg PO DAILY Primary Care Provider: Jagjit Myers Referrals: Jagjit Myers MD [Primary Care Provider, Medical] Print Language: Fijian Disposition Disposition: DC/Tx to Another Type of HCF
--- NOTE | 2025-06-09 16:09 | EKG12_ITS ---
Test Reason : CP Blood Pressure : */* mmHG Vent. Rate : 68 BPM Atrial Rate : 68 BPM P-R Int : 168 ms QRS Dur : 166 ms QT Int : 452 ms P-R-T Axes : 107 -83 63 degrees QTcB Int : 480 ms Atrial-sensed ventricular-paced rhythm Abnormal ECG Confirmed by Shashi Lui ([id number]), city editor CHARLES CHÁVEZ ([id number]) on 06/10/2025 10:58:17 AM Also confirmed by Shashi Lui ([id number]), city editor CHARLES CHÁVEZ ([id number]) on 06/11/2025 11:06:37 AM Referred By: Confirmed By: Shashi Lui
[2025-06-09 16:23] LABS: Troponin T High Sens 2 HR 36 ng/L (<=22)
[2025-06-09] MEDS: Lactated Ringers 1,000 ML 100 ML IV (18:56)
[2025-06-09 19:03] LABS: Pro- Brain NATRIURETIC PEPTIDE 176 pg/mL (<=900)
--- NOTE | 2025-06-09 22:48 | EKG12_ITS ---
Test Reason : REPEAT CP Blood Pressure : */* mmHG Vent. Rate : 73 BPM Atrial Rate : 73 BPM P-R Int : 170 ms QRS Dur : 164 ms QT Int : 430 ms P-R-T Axes : 109 -79 66 degrees QTcB Int : 473 ms Atrial-sensed ventricular-paced rhythm Abnormal ECG Confirmed by Shashi Lui (Lj), fan mail editor CHARLES CHÁVEZ ([id number]) on 06/10/2025 10:53:32 AM Also confirmed by Shashi Lui ([id number]), fan mail editor CHARLES CHÁVEZ ([id number]) on 06/11/2025 10:59:22 AM Referred By: TB Confirmed By: Shashi Lui
[2025-06-10] VITALS (14 sets, daily range): BP systolic 115–167; BP diastolic 32–94; PULSE 67–84; RESP 14–18; TEMP 36.7–37.2; O2SAT 96–100; BMI 40.9; BMI 36.3
--- NOTE | 2025-06-10 07:27 | PCA ---
CALLED [facility] FOR A BED UPDATE @ 07. JOSE ROBERTO SAID IT WOULD NOT BE ANYTIME SOON WHEN A BED WOULD BE AVAILABLE FOR A THE PATIENT.
--- NOTE | 2025-06-10 07:43 | HP.PCM.HOS_ITS ---
[facility] - General General Date of Admission: 06/10/25 Date of Service: 06/10/25 Chief Complaint: Chest pain HPI Narrative JERO CHAPA, is a 69 M who presented to the emergency department at [facility] on 06/09/2025 with a chief complaint of chest pain. Patient has a history of nonsustained VT and third-degree heart block for which she has a pacemaker. He had a complicated lead fracture that required revision at [facility] about a week ago and stated things had been going well. He said on Monday he went to [place] and saw a friend who gave him a hug and placed his left shoulder into his chest with a pacemaker was located and ever since that time he had had pain. Patient states it had been intermittent and had radiation into his right arm at the time of occurrence however has had no such symptoms since that point in time. He states currently he is having intermittent substernal burning and chest discomfort which resulted in him coming to emergency department for further evaluation. He stated on the day of presentation his symptoms were severe and persistent but had been less intense and more intermittent prior to that time. There was concern for possible lead fracture or lead issues as the patient had some intermittent tachycardia especially with movement and CT of the chest showed a small new pericardial effusion so the patient was transferred and accepted to [facility] by Dr. Vidal pending bed availability however no bed is available at this time and not expected to be available throughout the day today so the emergency department called and requested admission to the hospital until he can obtain transfer. Vital signs at the time of admission showed a temperature of 99.1, heart rate was 72 with accelerations into the 130s with any type of movement, respiratory rate 17, blood pressure was 143/67 pulse ox 100% on room air. CBC was unremarkable with a mild left shift showing a 77.8 neutrophilia. Chemistry panel was unremarkable. Initial troponin was 39 with a delta of 36. proBNP was normal at 176. EKG was unremarkable at time of admission but as noted above he was having decelerations in the 130s on telemetry. Chest x-ray showed no acute pathology and CTA of the chest was performed to rule out PE as patient does have previous VTE and this was negative for PE with newly noted s nonspecific trace pericardial effusion and mild pulmonary vascular congestion. [facility] Medical History HTN (hypertension) NSVT (nonsustained ventricular tachycardia) V tach Presence of cardiac pacemaker Fatigue AV block, 3rd degree Obesity (BMI 30-39.9) Syncope Chest pain Pre-syncope Prostate infection History of cardioversion First degree heart block Dyslipidemia Morbid obesity with BMI of 40.0-44.9, adult Paroxysmal atrial flutter Coronary artery disease Thrombocytopenia Failure of outpatient treatment Complicated urinary tract infection Dyspnea Atrial flutter History of shingles Fatigue History of pulmonary embolism Former tobacco use History of TIA (transient ischemic attack) Chest pain Rectal bleeding Pure hypercholesterolemia Acute pyelonephritis Prostate enlargement UTI (urinary tract infection) Dyspnea on exertion Claudication Fibromyalgia BPH (benign prostatic hyperplasia) GERD (gastroesophageal reflux disease) Essential hypertension Atherosclerotic heart disease of [place] coronary artery without angina pectoris Confusion Unstable angina Abnormal myocardial perfusion study H/O percutaneous transluminal coronary angioplasty Abnormal stress test DEENA (obstructive sleep apnea) Pulmonary embolism Obesity Testosterone deficiency Home Medications ?Medication ?Instructions ?Recorded ?Last Taken ?Type albuterol sulfate 90 mcg/actuation 1 - 2 puff inhalati on Q6H PRN 07/08/19 02/19/25 History aerosol inhaler Asthma testosterone 4 pump transdermal DAILY low 11/23/21 06/09/25 History testosterone tamsulosin 0.4 mg capsule 0.4 mg PO DAILY prostate 05/1006/08/25 History finasteride 5 mg tablet 5 mg PO DAILY prostate 10/2806/08/25 History multivitamin (Daily Multi-Vitamin 1 tab PO DAILY vitam in 10/28/24 06/09/25 History tablet) potassium chloride 10 mEq 20 meq PO DAILY supplement 0 10/28/24 06/09/25 History tablet,extended release aspirin 81 mg tablet 81 mg PO QDAY 02/28/2506/09 History cholecalciferol (vitamin D3) 25 25 mcg PO QDAY 5 06/09/25 History mcg (1,000 unit) capsule losartan 100 mg tablet 100 mg PO DAILY blood pressu re 04/03/25 06/09/25 History amlodipine 10 mg tablet 10 mg PO QHS #90 tabs 06/08/25 Rx esomeprazole magnesium 40 mg 40 mg PO QDAY reflux 03/2106/09/25 History capsule,delayed release carvedilol 3.125 mg tablet (Coreg) 3.125 mg PO BID 30 days #60 tabs 05/01/25 06/09/25 Rx atomoxetine 100 mg capsule 100 mg PO DAILY 06/09/25 History Allergy/AdvReac Type Severity Reaction Status Date / Time Sulfa (Sulfonamide Allergy Unknown Verified 06/09/25 13:42 Antibiotics) Family History Mother CAD (coronary artery disease) Hypertension Hx of CABG Father Hypertension Myocardial infarction Grandfather Myocardial infarction paternal Grandmother Cancer pancreatic CA Grandfather CAD (coronary artery disease) Surgical History Spinal cord stimulator status (~05/2021) History of back surgery History of transurethral resection of prostate History of arthroscopy of right knee History of laparoscopic cholecystectomy Presence of coronary angioplasty implant and graft (~08/2012) Presence of stent in coronary artery (~08/2012) History of left heart catheterization (LHC) History of PTCA (~08/2012) History of tonsillectomy and adenoidectomy History of repair of rotator cuff Social History housing: house Smoking Status: Former smoker quit date: 06/19/94 pack-years: 42 how long ago did patient quit smokin second hand exposure: No alcohol intake: current alcohol intake frequency: holidays/special occasions only Alcohol type: beer substance use type: does not use caffeine: Yes Type: carbonated beverages, coffee and tea what type of physical activity do you participate in: none ROS Constitutional Constitutional: Denies anorexia, change in weight, chills, fatigue, fever(s), malaise, night sweats, weakness or other Eyes Eyes: Denies blurry vision, change in eye color, change in vision, discharge from eye(s), double vision, erythema, eye pain, loss of vision or other ENT HEENT: Denies abnormal hearing, dysphagia, ear pain, epistaxis, headache(s), hearing loss, nasal congestion, nasal discharge, post nasal drip, sinus pressure, sore throat or other Cardiovascular Cardiovascular: Reports chest pain and rapid heart rate; Denies claudication, dyspnea on exertion, edema, lightheadedness, orthopnea, palpitations, paroxysmal nocturnal dyspnea, syncope or other Respiratory/Chest Respiratory/Chest: Denies cough, dyspnea, excessive phlegm production, hemoptysis, productive cough, shortness of breath at rest, shortness of breath with exertion, wheezing or other Gastrointestinal Gastrointestinal: Reports dyspepsia; Denies abdominal pain, coffee ground emesis, constipation, diarrhea, hematemesis, hematochezia, loose stools, melena, nausea, vomiting or other Genitourinary Genitourinary: Denies burning urination, difficulty urinating, dysuria, hematuria, nocturia, urinary frequency, urinary hesitancy, urinary incontinence, urinary urgency or other Musculoskeletal Musculoskeletal: Reports other Details: Right arm pain associated with chest pain ; Denies arthralgias, back pain, joint pain, joint stiffness, joint swelling, myalgias or neck pain Neurologic Neurologic: Denies abnormal gait, abnormal speech, confusion, disequilibrium, dizziness, focal weakness, headache(s), numbness, paresthesias, seizure-like activity, seizures, syncope, tingling, tremor(s) or other Psychiatric Psychiatric: Denies anxiety, depression, homicidal ideation, suicidal ideation or other Endocrine Endocrinology: Denies change in body appearance, cold intolerance, excessive sweating, heat intolerance, polydipsia, polyuria or other Hematologic/Lymphatic Hematologic/Lymphatic: Denies anemia, easy bleeding, easy bruising, lymphadenopathy or other Allergic/Immunologic Allergic/Immunologic: Denies rhinitis, hives, eczemia, asthma or other Patient's Goals Of Care . What would you like to achieve or improve as a result of your hospital stay?: Sincere almaraz pacer ok and resolve chest pain Vital Signs Vital Signs Vital Signs: 06/09/25 13:40 06/09/25 14:40 06/09/25 14:40 Temperature 98.1 F Temperature Source Oral Pulse Rate 71 69 Respiratory Rate 16 23 H Blood Pressure 162/78 H 161/76 H Blood Pressure Mean 106 104 Pulse Ox 99 96 98 Oxygen Delivery Method Room Air Room Air 06/09/25 15:00 06/09/25 15:30 06/09/25 16:00 Temperature Temperature Source Pulse Rate 69 130 H 70 Respiratory Rate 23 H 21 H Blood Pressure 149/72 H 164/64 H Blood Pressure Mean 97 97 Pulse Ox 99 100 Oxygen Delivery Method 06/09/25 17:00 06/09/25 18:00 06/09/25 19:00 Temperature Temperature Source Pulse Rate 69 72 70 Respiratory Rate 17 17 Blood Pressure 151/70 H 143/67 H Blood Pressure Mean 97 92 Pulse Ox 99 100 Oxygen Delivery Method Room Air 06/09/25 21:00 06/09/25 22:45 06/09/25 23:00 Temperature 99.0 F Temperature Source Oral Pulse Rate 78 74 74 Respiratory Rate 19 H 18 15 Blood Pressure 151/67 H 145/69 H Blood Pressure Mean 95 94 Pulse Ox 100 96 Oxygen Delivery Method Room Air Room Air 06/10/25 00:00 06/10/25 01:00 06/10/25 02:00 Temperature Temperature Source Pulse Rate 70 73 Respiratory Rate 17 16 Blood Pressure 125/58 H 120/60 135/67 H Blood Pressure Mean 80 80 89 Pulse Ox 98 Oxygen Delivery Method 06/10/25 03:00 06/10/25 04:00 06/10/25 05:00 Temperature Temperature Source Pulse Rate 84 Respiratory Rate 17 Blood Pressure 126/64 H 115/32 L 131/62 H Blood Pressure Mean 84 59 85 Pulse Ox Oxygen Delivery Method 06/10/25 06:00 06/10/25 07:14 Temperature Temperature Source Pulse Rate 76 70 Respiratory Rate 15 18 Blood Pressure 164/64 H Blood Pressure Mean 97 Pulse Ox 98 97 Oxygen Delivery Method Weight Weight: 152.7 kg Body Mass Index (BMI) 40.9 Physical Exam Const alert, oriented x3, no apparent distress and well nourished; Negative for average body habitus Constitutional Narrative: Obese, upper middle-aged, white male, sitting up in bed, son at bedside, patient currently appears comfortable, does not look toxic General Appearance: cooperative HEENT normocephalic and head/scalp atraumatic HEENT Narrative: Mallampati 3, no thrush, mucous membranes are moist Neck supple Neck Narrative: Neck is short thick, trachea midline Resp normal respiratory effort, no retractions, no use of accessory muscles and clear to auscultation bilaterally Auscultation: Negative for crackles, rhonchi or wheezes Cardio regular rhythm, S1 normal heart sound, S2 normal heart sound, no murmurs, no rub, no gallops and no clicks Cardio Narrative: Intermittent paced tachycardia GI normal to inspection, nondistended, normoactive bowel sounds, soft to palpation and non-tender GI Narrative: Protuberant abdomen Extremity no clubbing, cyanosis or edema Extremity Narrative: Pedal and radial pulses are 2+ Skin Skin Narrative: Right chest is clean dry and intact with Steri-Strips still in place but no signs of infection or significant tenderness/ecchymosis Neuro moves all extremities and no focal motor deficits Speech: speech normal Psych affect normal Psych Narrative: Very pleasant, interacts appropriately Results Lab / Micro Data 06/09/25 13:56 06/09/25 13:56 Labs: Laboratory Results - last 24 hr 06/09/25 13:56: WBC 7.5, RBC 5.30, Hgb 15.3, Hct 44.7, MCV 84.3, MCH 28.9, MCHC 34.2, RDW Std Deviation 41.4, RDW Coeff of Lito 13.6, Plt Count 151, MPV 11.1, Immature Gran % (Auto) 0.400, Neut % (Auto) 77.8 H, Lymph % (Auto) 11.2 L, [place] % (Auto) 8.6, Eos % (Auto) 1.7, Baso % (Auto) 0.3, Absolute Neuts (auto) 5.9, Absolute Lymphs (auto) 0.84, Nucleated RBC % 0, Sodium 138, Potassium 3.5, Chloride 103, Carbon Dioxide 23.2, Anion Gap 13, BUN 15, Creatinine 1.05, Est GFR (MDRD) Non-Af 78, BUN/Creatinine Ratio 14.7, Glucose 135 H, Calcium 8.9, T roponin T High Sens 39 H D 06/09/25 15:48: Troponin T Hi Sens 2 Hr 36 H, NT pro BNP II 176 Imaging Radiology Impression Chest X-Ray 06/09/25 14:10 IMPRESSION: No radiographic evidence of acute cardiopulmonary pathology. Reading Location: [id number] Chest CTA 06/09/25 15:32 IMPRESSION: 1. No evidence of pulmonary embolism. 2. Nonspecific trace pericardial effusion. 3. Mild pulmonary vascular congestion. Reading [facility] Assessment & Plan Assessment/Plan (1) Acute pericardial effusion: (2) Status post placement of cardiac pacemaker: (3) Tachycardia: (4) Chest pain: PLAN: Plan Chest pain with small pericardial effusion - Patient with recent pacemaker placement and now with pain after a traumatic event - Intermittent tachycardia especially with exertion - Check echocardiogram - Patient was transferred to [facility] and waiting bed availability as pacemaker was placed there -Dr. Vidal is the accepting physician - Will hold off on cardiology consult at this time but if any changes may need assistance here Troponin elevation - Doubt NSTEMI - EKG is unremarkable - Check echocardiogram - Transfer pending for cardiology needs Pericardial effusion - Noted is trace on CT - Echocardiogram ordered and pending - On exam no signs of pending tamponade - Transfer pending History of third-degree heart block/nonsustained VT - Patient has pacer defibrillator - Recent lead extraction and change at a [facility] - Transfer pending - Monitor on telemetry Nonobstructive CAD/essential hypertension/dyslipidemia - Patient takes no statin - Continue home beta-jacob - Continue home losartan - Continue home amlodipine - Continue home aspirin History of pulmonary embolism - Remote - Completed treatment for provoked PE History of TIA - Continue home aspirin BPH with obstruction - continue home Flomax - continue home Proscar DEENA - BiPAP as needed at at bedtime with home unit ADHD - Continue home atomoxetine GERD - Continue home PPI Testosterone deficiency - Continue home topical testosterone Obesity - Recommend weight loss - Complicates treatment, prognosis, outcomes DVT prophylaxis - Lovenox subcu 40 daily CODE STATUS - full code as verified on admission Transfer statement: Mr. Chapa was evaluated in the Emergency Department at [facility] on 06/09/2025. At the time of evaluation, transfer to a tertiary hospital was felt to be in the patient's best interest due to tachycardia and chest pain with pericardial effusion that is new and recent pacemaker placement. Attempts were made by the Emergency Department and/or the Hospitalist team to get Mr. Chapa to the appropriate level of care. Although the pt is accepted for transfer to [facility], there are no staffed beds currently available. Given the need for ongoing medical care, Mr. Chapa will be admitted to [facility] on 06/10/2025, and care will be provided here until [facility] has an available staffed bed. Pt and/or family are aware of the transfer, the reasoning behind the need for transfer, and that until a staffed bed becomes available, we will provide evidence-based care to the best of our abilities, with the limitations of care here being fully addressed. Charges/Coding Visit Charges Inpatient E&M: 69472 Init Hosp L2
--- NOTE | 2025-06-10 07:47 | ECHOLC_ITS ---
Reason For Study Reason For Study: Pericardial Effusion Procedure This was a limited 2D transthoracic echocardiogram. Contrast injection was performed. Exam performed portable in ICU/CCU. Left Ventricle Technically difficult study with poor acoustic windows and limited interpretation. Definity contrast utilized to visualize the endocardial borders. Normal LV size. Mild concentric left ventricular hypertrophy. The estimated ejection fraction is 55???60 %. Right Ventricle Normal RV size. Normal systolic function. Mitral Valve Mild diffuse mitral valve thickening. Tricuspid Valve The tricuspid valve is not well visualized. There is no tricuspid stenosis. Mild (1+) eccentric tricuspid valve insufficiency. Aortic Valve The aortic valve is not well visualized in the short axis view. Pulmonic Valve The pulmonic valve is not well visualized. Great Vessels Ascending aorta normal size measured at 3.0 cm. Normal sized IVC that collapses with respiration/sniff. Pericardium/Pleural Poor visualization however possible small pericardial effusion noted. No echocardiographic evidence concerning for tamponade appreciated. Medication Diluted definity 3ml given slow IV push to enhance endocardial definition. MMode/2D Measurements & Calculations LVIDd: 4.6 cm IVSd: 1.3 cm LVAd ap4: 34.4 cm2 LVIDs: 3.1 cm LVPWd: 1.2 cm LVLd ap4: 8.3 cm FS: 32.5 % EDV(MOD-sp4): 115.5 ml EDV(sp4-el): 120.7 ml LVAs ap4: 22.6 cm2 LVLs ap4: 8.4 cm ESV(MOD-sp4): 48.9 ml ESV(sp4-el): 51.6 ml EF(MOD-sp4): 57.7 % EF(sp4-el): 57.2 % SV(MOD-sp4): 66.7 ml SV(sp4-el): 69.1 ml SI(MOD-sp4): 24.1 ml/m2 Doppler Measurements & Calculations TR max yasmeen: 265.6 cm/sec TR max P.2 mmHg ECHO/Echo Limited w/Contrast Interpretation Summary Technically difficult study with poor acoustic windows and limited interpretati on. Definity contrast utilized to visualize the endocardial borders. The estimated ejection fraction is 55???60 %. Mild concentric left ventricular hypertrophy. Mild (1+) eccentric tricuspid valve insufficiency. Poor visualization however possible small pericardial effusion noted. No echoca rdiographic evidence concerning for tamponade appreciated. Normal sized IVC that collapses with respiration/sniff. Compared to previous echocardiogram 02/20/2025 overall stable normal ejection fra ction currently estimated at 55-60%. There does appear to be a small posterior apical pericardial effusion with no e chocardiographic evidence concerning for tamponade. Ordering Physician: Grace De La Rosa Referring Physician: Jagjit Myers Performed By: Marii Gramajo, LESLYE, RVT
--- NOTE | 2025-06-10 08:43 | NURSING ---
Pt reports that he took his dose of coreg this morning- 3.125 mg of his own supply
--- NOTE | 2025-06-10 09:18 | CASEMGMT ---
Insurance review for hospitals In-network with?MCR insurance if transfer is recommended is as follows: [facility], [facility], [place], [facility], [facility], [facility], , [place], [facility], [facility], and [place].
--- NOTE | 2025-06-10 16:03 | PCM.DC.SUM ---
Providers Date of Admission: 06/10/25 Date of Discharge: 06/10/25 Primary Care Physician: Dr. Jagjit Myers MD Reason For Visit: NEW PACEMAKER WITH PERICARDIAL EFFUSION Diagnosis Discharge Diagnosis (1) Acute pericardial effusion: Status: Acute Code(s): I30.9 - Acute pericarditis, unspecified (2) Status post placement of cardiac pacemaker: Status: Acute Code(s): Z95.0 - Presence of cardiac pacemaker (3) Tachycardia: Status: Acute Code(s): R00.0 - Tachycardia, unspecified (4) Chest pain: Status: Acute Code(s): R07.9 - Chest pain, unspecified Medications at Discharge Home Medications albuterol sulfate 90 mcg/actuation aerosol inhaler 1 - 2 puff inhalation Q6H PRN Asthma 07/08/19 testosterone 4 pump transdermal DAILY low testosterone 11/23/21 tamsulosin 0.4 mg capsule 0.4 mg PO DAILY prostate 04/29/22 finasteride 5 mg tablet 5 mg PO DAILY prostate 10/28/24 multivitamin (Daily Multi-Vitamin tablet) 1 tab PO DAILY vitamin 10/28/24 potassium chloride 10 mEq tablet,extended release 20 meq PO DAILY supplement 10/28/24 aspirin 81 mg tablet 81 mg PO QDAY 02/28/25 cholecalciferol (vitamin D3) 25 mcg (1,000 unit) capsule 25 mcg PO QDAY 02/28/25 losartan 100 mg tablet 100 mg PO DAILY blood pressure 04/03/25 amlodipine 10 mg tablet 10 mg PO QHS #90 tabs 04/17/25 esomeprazole magnesium 40 mg capsule,delayed release 40 mg PO QDAY reflux 04/17/25 carvedilol 3.125 mg tablet (Coreg) 3.125 mg PO BID 30 days #60 tabs 05/01/25 atomoxetine 100 mg capsule 100 mg PO DAILY 06/09/25 Hospital Course Operations None Procedures 2-D Echocardiogram and EKG Summary of Care Provided Minutes Spent on Discharge: 20 Hospital Course: JERO GARZON, is a 69 M who presented to the emergency department at [facility] on 06/09/2025 with a chief complaint of chest pain. Patient has a history of nonsustained VT and third-degree heart block for which she has a pacemaker. He had a complicated lead fracture that required revision at [facility] about a week ago and stated things had been going well. He said on Monday he went to [employer] and saw a friend who gave him a hug and placed his left shoulder into his chest with a pacemaker was located and ever since that time he had had pain. Patient states it had been intermittent and had radiation into his right arm at the time of occurrence however has had no such symptoms since that point in time. He states currently he is having intermittent substernal burning and chest discomfort which resulted in him coming to emergency department for further evaluation. He stated on the day of presentation his symptoms were severe and persistent but had been less intense and more intermittent prior to that time. There was concern for possible lead fracture or lead issues as the patient had some intermittent tachycardia especially with movement and CT of the chest showed a small new pericardial effusion so the patient was transferred and accepted to [facility] by Dr. Vidal pending bed availability however no bed is available at this time and not expected to be available throughout the day today so the emergency department called and requested admission to the hospital until he can obtain transfer. Vital signs at the time of admission showed a temperature of 99.1, heart rate was 72 with accelerations into the 130s with any type of movement, respiratory rate 17, blood pressure was 143/67 pulse ox 100% on room air. CBC was unremarkable with a mild left shift showing a 77.8 neutrophilia. Chemistry panel was unremarkable. Initial troponin was 39 with a delta of 36. proBNP was normal at 176. EKG was unremarkable at time of admission but as noted above he was having decelerations in the 130s on telemetry. Chest x-ray showed no acute pathology and CTA of the chest was performed to rule out PE as patient does have previous VTE and this was negative for PE with newly noted s nonspecific trace pericardial effusion and mild pulmonary vascular congestion. Patient was admitted to the telemetry unit and had ongoing intermittent tachycardia both at rest and with exertion. His chest pain had resolved by the time I saw him. Echocardiogram was performed here and it was a poor window due to body habitus however did show an EF of 50 to 60% with mild concentric LVH, mild eccentric tricuspid valve insufficiency with possible small pericardial effusion, normal IVC with collapse and stable EF but there does appear to be a small posterior apical pericardial effusion with no echocardiographic evidence of tamponade. Patient had ongoing intermittent tachycardia. We did keep him on his home beta-jacob. A bed became available at [facility] for transfer in the afternoon of 06/10/2025 and he was transferred there in stable condition for further evaluation. Discharge diagnoses: Chest pain Small pericardial effusion Troponin elevation with suspected demand ischemia History of third-degree heart block History of nonsustained VT Tachycardia Nonobstructive CAD Essential hypertension Hyperlipidemia History of PE History of TIA BPH with obstruction DEENA ADHD GERD Testosterone deficiency Obesity Physical Exam Const alert, oriented x3, no apparent distress and well nourished; Negative for average body habitus Constitutional Narrative: Obese, upper middle-aged, white male, sitting up in bed, son at bedside, patient currently appears comfortable, does not look toxic General Appearance: cooperative, comfortable, well kempt and well developed Orientation / Consciousness: awake Exam Limitations: no limitations Nutritional Appearance: obese HEENT normocephalic, head/scalp atraumatic and moist oral mucous membranes HEENT Narrative: Mallampati 3-4 Neck supple Neck Narrative: Neck is short thick, trachea midline Resp normal respiratory effort, no retractions, no use of accessory muscles and clear to auscultation bilaterally Auscultation: Negative for crackles, rhonchi or wheezes Cardio regular rhythm, S1 normal heart sound, S2 normal heart sound, no murmurs, no rub, no gallops and no clicks Cardio Narrative: Intermittent paced tachycardia GI normal to inspection, nondistended, normoactive bowel sounds, soft to palpation and non-tender GI Narrative: Protuberant abdomen Extremity no clubbing, cyanosis or edema Extremity Narrative: Pedal and radial pulses are 2+ Skin Skin Narrative: Right chest is clean dry and intact with Steri-Strips still in place but no signs of infection or significant tenderness/ecchymosis Neuro moves all extremities and no focal motor deficits Speech: speech normal Psych affect normal Psych Narrative: Very pleasant, interacts appropriately Weight / BMI Weight Weight: 138.8 kg Body Mass Index (BMI) 36.3 ABG / Lab / Microbiology Data 06/09/25 13:56 06/09/25 13:56 Laboratory: Laboratory Results - last 24 hr 06/09/25 15:48: Troponin T Hi Sens 2 Hr 36 H, NT pro BNP II 176 Radiography Diagnostic Testing: Radiology Impression Chest CTA 06/09/25 15:32 IMPRESSION: 1. No evidence of pulmonary embolism. 2. Nonspecific trace pericardial effusion. 3. Mild pulmonary vascular congestion. Reading Location: [facility] Echocardiogram 06/10/25 07:47 Interpretation Summary Technically difficult study with poor acoustic windows and limited interpretation. Definity contrast utilized to visualize the endocardial borders. The estimated ejection fraction is 55???60 %. Mild concentric left ventricular hypertrophy. Mild (1+) eccentric tricuspid valve insufficiency. Poor visualization however possible small pericardial effusion noted. No echocardiographic evidence concerning for tamponade appreciated. Normal sized IVC that collapses with respiration/sniff. Compared to previous echocardiogram 02/20/2025 overall stable normal ejection fraction currently estimated at 55-60%. There does appear to be a small posterior apical pericardial effusion with no echocardiographic evidence concerning for tamponade. Ordering Physician: Grace De La Rosa Referring Physician: Jagjit Myers Performed By: Marii Gramajo, LESLYE, RVT D/C Instructions DC O2, CPAP, BIPAP Needs Home O2 Discharge instructions: No Patient's Goals Of Care - F/U Goals Reviewed Goals of care reviewed with patient: Yes - No change Meaningful Use Info Meaningful Use Meaningful Use Diagnoses (Choose all that apply): None applicable Discharge Plan Admission Admit Date/Time: 06/10/25 07:43 Primary Reason for Your Visit: Chest Pain Attending Provider: Grace De La Rosa Primary Care Provider: Jagjit Myers Discharge Orders/Prescriptions Prescriptions: No Action tamsulosin 0.4 mg capsule 0.4 mg PO DAILY testosterone 20.25 mg/1.25 gram (1.62 %) gel in metered-dose pump 4 pump transdermal DAILY Patient Comments: APPLY 4 PUMPS DAILY aspirin 81 mg tablet 81 mg PO QDAY cholecalciferol (vitamin D3) 25 mcg (1,000 unit) capsule 25 mcg PO QDAY amlodipine 10 mg tablet 10 mg PO QHS Qty: 90 3RF carvedilol [Coreg] 3.125 mg tablet 3.125 mg PO BID 30 Days Qty: 60 11RF Rx Instructions: must administer with a meal/food albuterol sulfate 1 INHALER inhaler 1 - 2 puff INHALATION Q6H PRN (Reason: Asthma) potassium chloride 10 mEq tablet extended release 20 meq PO DAILY finasteride 5 mg tablet 5 mg PO DAILY multivitamin [Daily Multi-Vitamin] Tablet 1 tab PO DAILY esomeprazole magnesium 40 mg capsule,delayed release(DR/EC) 40 mg PO QDAY Patient Comments: PT ONLY TAKES ONCE A DAY atomoxetine 100 mg capsule 100 mg PO DAILY losartan 100 mg tablet 100 mg PO DAILY Referrals / Follow Up: Jagjit Myers MD [Primary Care Provider, Medical] Disposition Disposition (needs filled in before D/C Order can be placed): Acute Care Hospital Charges/Coding Visit Charges Inpatient E&M: 03399 Disch Hosp
--- NOTE | 2025-06-10 18:07 | NURSING ---
attempted to call report to [facility], was on hold for 20 minutes, will attempt later
== END 2025-06-10 18:45 | disposition short-term general hospital (02) | DRG 315 ==
LOC: ED 06-10 07:45 → ICU 06-10 08:41
PROVIDERS: Admitting Provider Internal Medicine; Emergency Provider Emergency Medicine; PCP Family Medicine; Visit Provider Internal Medicine
DX: I30.9 Acute pericarditis, unspecified (principal); I24.89 Other forms of acute ischemic heart disease; N13.8 Other obstructive and reflux uropathy; I10 Essential (primary) hypertension; E66.9 Obesity, unspecified; G47.33 Obstructive sleep apnea (adult) (pediatric); I25.10 Atherosclerotic heart disease of native coronary artery without angina pectoris; M79.7 Fibromyalgia; K21.9 Gastro-esophageal reflux disease without esophagitis; E78.5 Hyperlipidemia, unspecified; E29.1 Testicular hypofunction; Z82.49 Family history of ischemic heart disease and other diseases of the circulatory system; R00.0 Tachycardia, unspecified; Z86.711 Personal history of pulmonary embolism; F90.9 Attention-deficit hyperactivity disorder, unspecified type; Z95.0 Presence of cardiac pacemaker; Z87.891 Personal history of nicotine dependence; Z95.5 Presence of coronary angioplasty implant and graft; Z86.73 Personal history of transient ischemic attack (TIA), and 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 residual deficits; N40.1 Benign prostatic hyperplasia with lower urinary tract symptoms; R07.9 Chest pain, unspecified
CPT/HCPCS: 71045; 71275; 80048; 83880; 84484; 85025; 93005; 93288; 93308; 97802; 99285; Q9957; Q9967; A4216; C8924; J2405